=== PATIENT | male | born 1945 | race Caucasian/White ===

== ENCOUNTER 2017-10-22 09:30 | Emergency (ER) | payer BC, OTHER ==
[~2017-10-22] VITALS: Ht 170.2 cm; Wt 90.0 kg
[~2017-10-22 09:30] MED LIST: FRRS300 PO; HYDR1TAB2 PO; NITR1CAP16 PO; TAMS0.4C59 PO; TRAZ1TAB96 PO; WARF1TAB PO
[2017-10-22 09:32] VITALS: Ht 170.2 cm; Wt 90.0 kg
[2017-10-22] MEDS ORDERED: CEFAZOLIN SOD 1000MG/7.5 ML IV PUSH IV STA (10:02)
[2017-10-22] MEDS ORDERED: TAMS0.4C38 PO (10:22)
[2017-10-22] MEDS ORDERED: SERT25TA PO (10:26)
[2017-10-22] MEDS ORDERED: ATOR-24 PO (10:26)
[2017-10-22] MEDS ORDERED: ASPI81TA28 PO (10:26)
[2017-10-22] MEDS ORDERED: LOSA50TA6 PO (10:26)
[2017-10-22 10:40] LABS: BASO % 0.2 %; BASO ABS # 0.01 K/uL (0-0.2); EOS % 2.2 %; EOS ABS # 0.11 K/uL (0-0.5); HEMATOCRIT 45.1 % (42-52); HEMOGLOBIN 15.8 g/dL (14.0-18.0); IG# 0.01 K/uL (0.00-0.02); LYMPH ABS # 0.96 K/uL (1.2-3.4); MEAN CELL VOLUME 93.6 fL (80-100); MEAN CORPUSCULAR HEMOGLOBIN 32.8 pg (25-34); MEAN PLATELET VOLUME 9.2 fL (7.4-10.4); MONO % 11.3 %; MONO ABS # 0.57 K/uL (0.11-0.59); NEUT % 67.1 %; NEUT ABS # 3.38 K/uL (1.4-6.5); PLATELET COUNT 139 K/uL (130-400); RED CELL DISTRIBUTION WIDTH CV 12.7 % (11.5-14.5); RED CELL DISTRIBUTION WIDTH SD 43.2 fL (36.4-46.3); WHITE BLOOD COUNT 5.04 K/uL (4.8-10.8)
[2017-10-22 10:58] LABS: POTASSIUM 4.1 mmol/L (3.5-5.1)
--- NOTE | 2017-10-22 11:33 | DIAGNOSTIC IMAGING REPORT ---
L VENOUS DOPP LOWER EXT UNILAT CLINICAL HISTORY: cellulitis, r/o dvt pain. Edema. TECHNIQUE: Venous Doppler COMPARISON STUDY: None FINDINGS: Normal study IMPRESSION: Normal study The above report was generated using voice recognition software. It may contain grammatical, syntax or spelling errors. Electronically signed by: Gilbert Carmona M.D. 10/22/2017 11:31 AM Dictated Date/Time: 10/22/2017 11:31 AM
--- NOTE | 2017-10-22 11:45 | EMERGENCY ROOM VISIT NOTE ---
History Report prepared by Bo: Erin Luis Under the Supervision of: Dr. Kirk Zamudio D.O. 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 He notes left foot swelling. He reported to his PCP three days ago for similar symptoms and was administered a Rocephin shot and 500 mg Keflex four times a day. He notes the pain has worsened and his left foot has turned red. He currently rates his pain a 3/10 in severity. He notes fevers and chills. He denies any previous infections to his feet. He was seen today by Dr. Abreu at [facility] and was advised to come to the ED. Per , the patient had a fall in March 2017, reconstructive surgery on his right foot (2004), and triple bypass surgery (2011). The patient has a history of CAD, Parkinson's disease, and slight dementia. He denies any lung issues. He is not currently taking Coumadin. 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 Review of Systems See HPI for pertinent positives & negatives. A total of 10 systems reviewed and were otherwise negative. Past Medical & Surgical Medical Problems: (1) CAD (coronary artery disease) (2) History of ulceration (3) HTN (hypertension) (4) Parkinson disease (5) Reconstructive right foot surgery (2004) (6) Skin problem (7) Triple bypass surgery (2011) (8) Urinary problem Surgical Problems: (1) H/O eye surgery Family History Diabetes mellitus Heart disease Hypertension Social History Smoking Status: Never Smoker Smokeless Tobacco Use: No Alcohol Use: none Drug Use: none Marital Status: Housing Status: lives with significant other Occupation Status: unemployed Current/Historical Medications Scheduled Aspirin (Aspirin Ec), 81 MG PO DAILY Atorvastatin (Lipitor), 40 MG PO DAILY Losartan Potassium (Cozaar), 50 MG PO DAILY Sertraline (Zoloft), 25 MG PO HS Allergies Coded Allergies: No Known Allergies (Verified , 10/22/17) Physical Exam Vital Signs Date Time Temp Pulse Resp B/P (MAP) Pulse Ox O2 Delivery O2 Flow Rate FiO2 10/22/17 12:07 36.6 70 18 155/83 94 10/22/17 11:34 76 18 151/87 92 Room Air 10/22/17 09:32 36.6 89 20 147/82 90 Room Air Physical Exam CONSTITUTIONAL/VITAL SIGNS: Reviewed / noted above. GENERAL: Non-toxic in appearance. INTEGUMENTARY: Warm, dry, and [place]. HEAD: Normocephalic. EYES: without scleral icterus or trauma. ENT/OROPHARYNX: clear and moist. LYMPHADENOPATHY/NECK: Is supple without lymphadenopathy or meningismus. RESPIRATORY: Lungs clear and equal. CARDIOVASCULAR: Regular rate and rhythm. GI/ABDOMEN: Soft and nontender. No organomegaly or pulsatile mass. No rebound or guarding. Normal bowel sounds. EXTREMITIES: Erythema to dorsal aspect of left foot with mild tenderness. Mild erythema extending to the left anterior tibial region and to the left patella. Minimal increase of warmth to area over dorsal aspect of foot. No red streaking extending up the thigh. BACK: No CVA tenderness. NEUROLOGICAL: Intact without focal deficits. PSYCHIATRIC: normal affect. MUSCULOSKELETAL: Normally developed with good muscle tone. Medical Decision & Procedures ER Provider Diagnostic Interpretation: Radiology results as stated below per my review and radiologist interpretation: L VENOUS DOPP LOWER EXT UNILAT CLINICAL HISTORY: cellulitis, r/o dvt pain. Edema. TECHNIQUE: Venous Doppler COMPARISON STUDY: None FINDINGS: Normal study IMPRESSION: Normal study The above report was generated using voice recognition software. It may contain grammatical, syntax or spelling errors. Electronically signed by: Gilbert Carmona M.D. 10/22/2017 11:31 AM Dictated Date/Time: 10/22/2017 11:31 AM Laboratory Results 10/22/17 10:30 Red Blood Count 4.82, Mean Corpuscular Volume 93.6, Mean Corpuscular Hemoglobin 32.8, Mean Corpuscular Hemoglobin Concent 35.0, Mean Platelet Volume 9.2, Neutrophils (%) (Auto) 67.1, Lymphocytes (%) (Auto) 19.0, Monocytes (%) (Auto) 11.3, Eosinophils (%) (Auto) 2.2, Basophils (%) (Auto) 0.2, Neutrophils # (Auto ) 3.38, Lymphocytes # (Auto) 0.96, Monocytes # (Auto) 0.57, Eosinophils # (Auto ) 0.11, Basophils # (Auto) 0.01 10/22/17 10:30 Test 10/22/17 10:30 White Blood Count 5.04 K/uL (4.8-10.8) Red Blood Count 4.82 M/uL (4.7-6.1) Hemoglobin 15.8 g/dL (14.0-18.0) Hematocrit 45.1 % (42-52) Mean Corpuscular Volume 93.6 fL (80-100) Mean Corpuscular Hemoglobin 32.8 pg (25-34) Mean Corpuscular Hemoglobin Concent 35.0 g/dl (32-36) Platelet Count 139 K/uL (130-400) Mean Platelet Volume 9.2 fL (7.4-10.4) Neutrophils (%) (Auto) 67.1 % Lymphocytes (%) (Auto) 19.0 % Monocytes (%) (Auto) 11.3 % Eosinophils (%) (Auto) 2.2 % Basophils (%) (Auto) 0.2 % Neutrophils # (Auto) 3.38 K/uL (1.4-6.5) Lymphocytes # (Auto) 0.96 K/uL (1.2-3.4) Monocytes # (Auto) 0.57 K/uL (0.11-0.59) Eosinophils # (Auto) 0.11 K/uL (0-0.5) Basophils # (Auto) 0.01 K/uL (0-0.2) RDW Standard Deviation 43.2 fL (36.4-46.3) RDW Coefficient of Variation 12.7 % (11.5-14.5) Immature Granulocyte % (Auto) 0.2 % Immature Granulocyte # (Auto) 0.01 K/uL (0.00-0.02) Anion Gap 4.0 mmol/L (3-11) Est Creatinine Clear Calc Drug Dose 70.4 ml/min Estimated GFR () 86.2 Estimated GFR (Non- 74.3 BUN/Creatinine Ratio 17.6 (10-20) Calcium Level 9.0 mg/dl (8.5-10.1) Laboratory results as stated above per my review. Medications Administered Medications (Trade) Dose Ordered Sig/Stephanie Route Start Time Stop Time Status Last Admin Dose Admin Cefazolin Sodium (Cefazolin 1000mg Iv Push) 2,000 mg NOW STAT IV 10/22/17 10:02 10/22/17 10:05 DC 10/22/17 10:02 2,000 MG ED Course 0949: Previous medical records were reviewed. The patient was evaluated in room B9. A complete history and physical examination was performed. 1002: Ordered Cefazolin Sodium 2,000 mg IV 1159: I reassessed the patient at this time. He is feeling better and resting comfortably. I discussed the results and treatment plan with the patient. I answered all pertaining questions that he had. He expressed understanding and verbalized agreement. The patient will be discharged home. Medical Decision Differential diagnosis: Etiologies such as cellulitis, abscess, MRSA infection, DVT, necrotizing fasciitis, dermatitis, drug eruption, as well as others were entertained.. This is a 72-year-old male who presents to the ED with a chief complaint of redness to his left foot and anterior leg. The patient states that he saw his PCP on Monday and was given an IM injection of Rocephin and started on Keflex for the past 2 days. He states that his symptoms are not gone worse but they have not improved. He was seen by the PCP provider today and referred here for further evaluation. His vital signs are stable. He is afebrile. His exam is noted above. He has redness to the dorsal aspect of his left foot and ankle area. It is tender in a small area on the dorsal aspect. There is some redness along the anterior tibia to about the patellar area. There is no redness around the posterior aspect of the leg. The patient does not appear to be toxic or septic. There is minimal increased warmth over the dorsal aspect of the foot. There is no increased warmth along the anterior leg or knee. The patient does report a history of CAD and has had CABG in the past. Denies diabetes. Denies being told about peripheral last will disease in the past although this is likely. His CBC is normal, metabolic panel was unremarkable. Glucose was 125. Ultrasound did not show DVT. The patient was treated with IV Ancef. Based on my evaluation and the lack of worsening while on antibiotics, I feel the patient is stable for discharge and continued outpatient therapy at this time. He is to return for worsening. He was told to anticipate slow improvement over the next week. He is to follow-up with his PCP in 2-3 days for recheck. Medication Reconcilliation Current Medication List: was personally reviewed by me Blood Pressure Screening Patient's blood pressure: Elevated blood pressure Blood pressure disposition: Elevated BP felt to be situational Impression Primary Impression: Cellulitis Scribe Attestation The scribe's documentation has been prepared under my direction and personally reviewed by me in its entirety. I confirm that the note above accurately reflects all work, treatment, procedures, and medical decision making performed by me. Departure Information Dispostion Home / Self-Care Referrals No Doctor, Assigned (PCP) Forms HOME CARE DOCUMENTATION FORM, IMPORTANT VISIT INFORMATION Patient Instructions My [facility] Additional Instructions Continue Keflex. Return to the emergency department for reevaluation if the redness starts to go above the level of the knee, fevers, vomiting or the redness become circumferential around the lower extremity. See her doctor for recheck in 2 days.
[2017-10-22 12:07] VITALS: BP 155/83; PULSE 70; TEMP 36.6; O2SAT 94
[2017-10-22] MEDS ORDERED: LISI-725 PO (19:08)
[2017-10-22] MEDS ORDERED: SIMV20TA2 PO (19:08)
== END 2017-10-22 12:08 | disposition home or self-care (01) ==
LOC: C.EDB 09:32
DX: L03.116 Cellulitis of left lower limb (principal); R50.9 Fever, unspecified; Z98.890 Other specified postprocedural states; I10 Essential (primary) hypertension; I25.10 Atherosclerotic heart disease of native coronary artery without angina pectoris; G20 Parkinson's disease; Z95.1 Presence of aortocoronary bypass graft; Z79.82 Long term (current) use of aspirin; Z83.3 Family history of diabetes mellitus; Z82.49 Family history of ischemic heart disease and other diseases of the circulatory system

== ENCOUNTER 2019-12-09 15:54 | Observation (INO) ==
[2019-12-09] MEDS ORDERED: LACTATED RINGER'S 1,000 ML IV ONE ×2 (16:45→21:48)
--- NOTE | 2019-12-09 17:01 | XRay Report ---
XR chest 1V portable CLINICAL HISTORY: 74 years-old Male presenting with fall weakness. TECHNIQUE: Portable upright AP view of the chest was obtained. COMPARISON: 09/01/2019 and CTA chest from 09/02/2018. FINDINGS: Median sternotomy wires and mediastinal surgical clips. Atherosclerosis and tortuosity of the thoraci c aorta. Cardiac silhouette mildly enlarged. Mildly heterogeneous radiolucency of the lungs. No focal opacity. No large effusion or pneumothorax. Old left rib fractures noted. Osteopenia suggested. Dege nerative changes of the spine. Upper abdomen normal. IMPRESSION: 1. Cardiomegaly. No other convincing evidence of acute cardiopulmonary disease. ACT 112: Negative or not required by law. Electronically signed by: Faustino Manning M.D. 12/09/2019 5:00 PM
--- NOTE | 2019-12-09 17:04 | XRay Report ---
XR pelvis 1-2V routine CLINICAL HISTORY: 74 years-old Male presenting with fall. TECHNIQUE: Single frontal view of the pelvis was obtained. COMPARISON: Correlation made to CT of the abdomen and pelvis on 09/02/2018 and plain radiograph of th e pelvis from 06/01/2012. FINDINGS: Postsurgical changes of total right hip arthroplasty. Periprosthetic lucency noted along the inferior aspect of the acetabular component. No periprosthetic fracture. Remainder of the bony pelvis is layla sly intact. Sacral iliac joints and pubic symphysis intact. Left hip joint intact. Advanced degenerat juan changes of the lower lumbar spine. Limited evaluation of the sacrum. Left femoral neck grossly in tact. Atherosclerotic calcifications noted. IMPRESSION: 1. No acute osseous injury. 2. Total right hip arthroplasty. Greater lucency along the inferior aspect of the acetabular compone nt in comparison to prior. This may suggest underlying osteolysis/particle disease. No convincing dianne dence of a periprosthetic fracture. ACT 112: Negative or not required by law. Electronically signed by: Faustino Manning M.D. 12/09/2019 5:03 PM
--- NOTE | 2019-12-09 17:16 | CT Scan Report ---
CT SCAN OF THE BRAIN WITHOUT IV CONTRAST CLINICAL HISTORY: Fall. COMPARISON STUDY: No priors. TECHNIQUE: Unenhanced axial CT scan of the brain is performed from the vertex to the skull base. A do se lowering technique was utilized adhering to the principles of ALARA. FINDINGS: Brain parenchyma: There are age-related involutional changes noting mild subcortical and periventric ular microangiopathic change. There is no hemorrhage, mass effect, or evidence of acute territorial i schemia by CT criteria. Jain-white matter differentiation is preserved. No extra-axial fluid collecti on is seen. Ventricles, sulci, cisterns: Prominent secondary to involutional change. Intracranial vasculature: There is atherosclerotic calcification of the cavernous carotid and vertebr al arteries. Calvarium: Skeletal structures are osteopenic. No depressed calvarial fracture is identified. Sinuses and mastoids: There is moderate mucosal thickening seen in the left maxillary antrum. Mild se cretions are noted in the left sphenoid sinus. There is trace mucosal thickening within the left fron alyx and ethmoid sinuses. Large mastoid effusions are identified. Orbits: The bony orbits are grossly intact. There are bilateral ocular lens implants. IMPRESSION: There is no hemorrhage, mass effect, or evidence of acute territorial ischemia by CT crit robi. ACT 112: Negative or not required by law. Electronically signed by: Gonzales Alvarado M.D. 12/09/2019 5:15 PM
--- NOTE | 2019-12-09 17:22 | CT Scan Report ---
CT abd pelvis wo con CLINICAL HISTORY: 74 years-old Male presenting with fall, trauma. TECHNIQUE: Multidetector CT of the abdomen and pelvis was performed without the use of intravenous co ntrast. IV contrast: None. One or more dose lowering techniques were used consistent with the princip les of ALARA (as low as reasonably achievable), including automatic exposure control, mA or kV adjust ment to individual patient size, and/or use of iterative reconstruction. COMPARISON: 09/02/2018. CT DOSE (mGy.cm): The estimated cumulative dose is 545.73 mGy.cm. 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 Lung bases: Calcified foci within the pericardial fat, possibly old fat necrosis or calcified lymph n ode. Coronary artery and aortic valve calcification. Top normal heart size. No pericardial or pleural effusion. No focal infiltrate or nodule at the lung bases. Liver: Congenital hypoplasia of the medial segments of the left hepatic lobe. Normal liver density. Biliary: No gross biliary ductal dilatation allowing for noncontrast technique. Normal gallbladder. Pancreas: Normal noncontrast appearance. Spleen: Normal noncontrast appearance. Splenule noted. Adrenal glands: Normal noncontrast appearance. Kidneys and ureters: Normal noncontrast appearance. No nephrolithiasis. No hydronephrosis. Normal ure ters. Bladder: Significant circumferential bladder wall thickening. Pelvic organs: Marked prostatic enlargement likely secondary to benign prostatic hyperplasia. Bowel: Mild diverticulosis of the mid sigmoid colon without wall thickening or pericolonic inflammato ry change. The appendix is normal. No bowel obstruction. Duodenal diverticulum noted at the level of the pancreatic head. Peritoneal cavity: No free fluid or intraperitoneal gas. Lymph nodes: No gross lymphadenopathy allowing for noncontrast technique. Vasculature: Atherosclerosis of the normal caliber abdominal aorta. Abdominal wall: Small fat-containing inguinal hernias. Musculoskeletal: Total right hip arthroplasty. Degenerative changes of the spine. Partially visualize d median sternotomy. No acute osseous injury. Several old rib fractures noted. Multiple lucent lesion s are suspected including in the lumbar spine and left superior acetabulum. These have not significan tly changed since prior CT. Degenerative changes of the sacroiliac joints. Sacrum grossly intact. Deg enerative changes of the left hip and pubic symphysis. Bilateral pars defects of L5. IMPRESSION: 1. Allowing for noncontrast technique, no convincing evidence of acute intra-abdominal pathology. No acute osseous injury. 2. Significant chronic bladder outlet obstruction secondary to marked prostatomegaly. 3. Additional chronic findings as above. ACT 112: Negative or not required by law. Electronically signed by: Faustino Manning M.D. 12/09/2019 5:21 PM
--- NOTE | 2019-12-09 17:23 | CT Scan Report ---
CT SCAN OF THE CERVICAL SPINE CLINICAL HISTORY: Trauma. Fall. COMPARISON STUDY: CT angiogram of the neck dated 08/31/2012. TECHNIQUE: CT scan of the cervical spine is performed from the skull base to the upper thoracic spine . Images are reviewed in the axial, sagittal, and coronal planes. IV contrast was not administered fo r this examination. A dose lowering technique was utilized adhering to the principles of ALARA. CT DOSE: 1024.07 mGy.cm FINDINGS: Skeletal structures: The skeletal structures are osteopenic. There is no evidence of acute fracture o r subluxation involving the cervical spine. There is incomplete bony fusion of the anterior C1. This is new from 2011 and likely represents remote fracture. This is well corticated with no evidence of a cutely. Vertebral body is maintained. There is 4 mm of anterolisthesis at C4-C5. This has minimally i ncreased dated back to 2011. Minimal anterolisthesis is noted at C5-C6. Alignment is otherwise preser melvin. There is straightening of cervical lordosis with reversal centered at C5. Anterior osteophytes a re seen throughout. The odontoid process and lateral masses are intact. The atlantoaxial articulation is preserved noting advanced productive degenerative change. The spinous processes appear intact. Th ere is moderate to advanced multilevel cervical spondylosis. Uncovertebral and facet arthropathy cont ribute to neural foraminal stenosis at most levels. Intervertebral discs: There is advanced disc space narrowing seen at C5-C6 and C7-T1. Moderate disc s pace narrowing seen at C3-C4, C4-C5, and C6-C7. Central canal: Posterior disc osteophyte complexes are seen at all levels between C3-C4 and C7-T1. Th is likely contributes to multilevel acquired compromise of the central canal. Soft tissues: The prevertebral and paraspinous soft tissues are within normal limits. Atherosclerotic calcification is noted in the carotid bulbs. Calvarium: The visualized calvarium at the skull base appears intact. Brain parenchyma: Partially visualized brain parenchyma the skull base is within normal limits. Sinuses and mastoids: Mucosal thickening is noted in the left sphenoid sinus. There are large bilater al mastoid effusions. Lung apices: Clear as visualized. IMPRESSION: 1. There is no evidence of fracture or subluxation involving the cervical spine. 2. Osteopenia and spondylotic change as above. 3. Large mastoid effusions. ACT 112: Negative or not required by law. Electronically signed by: Gonzales Alvarado M.D. 12/09/2019 5:22 PM
[2019-12-09 17:54] LABS: Basophils # (auto) 0.02 K/uL (0-0.2); Basophils % (auto) 0.3 %; Eosinophils # (auto) 0.12 K/uL (0-0.5); Hemoglobin 14.2 g/dL (14.0-18.0); Immature Granulocytes # (auto) 0.02 K/uL (0.00-0.02); Immature Granulocytes % (auto) 0.3 %; Lymphocytes # (auto) 1.15 K/uL (1.2-3.4); Lymphocytes % (auto) 19.6 %; Mean Corpuscular Hemoglobin 28.7 pg (25-34); Mean Corpuscular Hgb Conc 33.8 g/dL (32-36); Mean Corpuscular Volume 84.8 fL (80-100); Mean Platelet Volume 9.6 fL (7.4-10.4); Monocytes # (auto) 0.47 K/uL (0.11-0.59); Neutrophils # (auto) 4.09 K/uL (1.4-6.5); Neutrophils % (auto) 69.8 %; Platelet Count 125 K/uL (130-400); RDW Coefficient of Variation 14.5 % (11.5-14.5); RDW Standard Deviation 44.8 fL (36.4-46.3); Red Blood Count 4.95 M/uL (4.7-6.1); White Blood Count 5.87 K/uL (4.8-10.8)
[2019-12-09 18:05] LABS: Partial Thromboplastin Ratio 0.8; Prothrombin Time 10.3 Seconds (9.0-12.0)
[2019-12-09 18:16] LABS: Alanine Aminotransferase 21 U/L (12-78); Albumin Level 3.4 gm/dl (3.4-5.0); Aspartate Aminotransferase 16 U/L (15-37); BUN Creatinine Ratio 15.9 (10-20); Blood Urea Nitrogen 27 mg/dl (7-18); Calcium 8.6 mg/dl (8.5-10.1); Carbon Dioxide 29 mmol/L (21-32); Chloride 107 mmol/L (98-107); Creatinine Clr Calc Pharmacy 37.7 ml/min; Est GFR (African American) 44.4; Est GFR (Non-African American) 38.3; Glucose 132 mg/dl (70-99); Magnesium 2.1 mg/dl (1.8-2.4); Potassium 3.7 mmol/L (3.5-5.1); Sodium 140 mmol/L (136-145)
[2019-12-09 18:21] LABS: Albumin Globulin Ratio 1.1 (0.9-2); Alkaline Phosphatase 123 U/L (45-117); Bilirubin,Total 0.4 mg/dl (0.2-1); Total Protein 6.4 gm/dl (6.4-8.2); Troponin I < 0.015 ng/ml (0-0.045)
[2019-12-09 18:36] LABS: Influenza A virus by PCR Neg for Influ A (Neg); Influenza B virus by PCR Neg for Influ B (Neg)
[2019-12-09 19:11] LABS: Appearance Urine Clear (Clear); Bacteria Urine Automated Negative (Negative); Bilirubin Urine Negative (Negative); Blood Urine Negative (Negative); Color Urine Yellow; Epithelial Cell Urine Auto 20-30 /lpf (0-5); Glucose Urine UA Negative (Negative); Ketones Urine Negative (Negative); Leukocyte Esterase Urine Negative (Negative); Nitrite Urine Negative (Negative); Protein Urine 2+ (Negative); RBC Urine Automated 0-4 /hpf (0-4); Specific Gravity Urine 1.016 (1.000-1.030); Urobilinogen Urine Negative (Negative)
--- NOTE | 2019-12-09 20:46 | History & Physical Report ---
Date of Service December 09, 2019 Assessment & Plan (1) ARF (acute renal failure): Mild clinical dehydration ? Generalized weakness from incipient viral illness Patient not septic CAD status post CABG Hypertension, stable Parkinson's dementia as per records, at baseline Patient following with a specialist from [facility]. Recurrent LE cellulitis/history strep bacteremia on chronic Keflex suppression Rx DM 2, on oral meds Well-controlled as of recent hemoglobin A1c of 6.4, August 2019 BPH stable OBS GMF Monitor creatinine response to IVF Hold home diuretic and losartan for now until creatinine at baseline. ISS BG goal [id number], update hemoglobin A1c PT OT eval DVT prophylaxis. Heparin subcu Full code Patient's requesting for updates from providers. Mrs. Ashley Jose thru contact #[phone]. Text document was generated using [employer] voice recognition software. It may contain grammatical or spelling errors. Kindly contact undersigned for clarification of any documentation item in question. History of Present Illness Chief Complaint: Generalized weakness Primary Care Provider: Michael Hinton MD History obtained from patient, family, and records. Medical history significant for hypertension, hyperlipidemia, Parkinson's, dementia, CAD sp CABG, medullary sponge kidney as per records, BPH, history recurrent cellulitis on chronic Keflex Rx.. Recent confinement August 2018 for sepsis secondary to bilateral lower extremity cellulitis/group B strep bacteremia. Patient discharged on suppressive Keflex Rx due to recurrent disease. This morning patient noted increasing generalized weakness without flulike symptoms, fever, chills, chest pain, S OB, abdominal pain, diarrhea, dysuria. Dry cough symptoms. Appetite good as per patient. Patient recovered from complicated bronchitis episode along with about 3 weeks ago status post Z- Frank Rx from PCP. Patient brought to the ER for evaluation. 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 Allergies Allergy/AdvReac Type Severity Reaction Status Date / Time YONATAN Inhibitors AdvReac Unknown Cough Verified 12/09/19 16:46 Home Medications Home Medications Medication Instructions Recorded Confirmed Type aspirin [Aspir-81] 81 mg PO QAM 09/02/18 12/09/19 History atorvastatin 40 mg PO QAM 09/02/18 12/09/19 History donepezil 5 mg tablet 5 mg PO QAM tab 07/11/19 12/09/19 History tamsulosin 0.4 mg capsule 0.4 mg PO QAM #90 cap 07/11/19 12/09/19 History amantadine HCl 100 mg tablet 100 mg PO BID tab 08/20/19 12/09/19 History triamterene 37.5 1 tab PO WK #15 tab 08/21/19 12/09/19 Rx mg-hydrochlorothiazide 25 mg tablet cephalexin 500 mg capsule 500 mg PO BID #180 cap 11/06/19 12/09/19 Rx escitalopram oxalate 20 mg PO QAM 12/09/19 12/09/19 History metformin 1,000 mg PO QAM 12/09/19 12/09/19 History Past Med/Surg History Social History Preferred Language: Swedish Communication Ability: Effective Sld Inclusion Teacher Required: No Beliefs That Will Affect Care: None Current Living Situation: Spouse Other Information That Helps Us Care for You: No Feels Safe at Home: Yes Safety Concerns: Feels Safe At This Time Smoking Status: Never smoker Hx Alcohol Use: No Hx Substance Use: Yes substance use type: marijuana Substance Use Type Other:: had medical marijuana card Last Used Substance Other:: did not ask when last used Review of Systems Review of Systems: As per HPI, all 10 systems reviewed, all other ROS negative Physical Exam Physical Exam: GENERAL: Comfortable, no respiratory distress SKIN: Pallor , warm HEENT: Pale palpebral conjunctivae, no ptosis, dry buccal mucosa NECK : Supple, short neck, no tenderness CHEST : CTA, no tenderness HEART : RRR, no obvious murmurs ABDOMEN: Some distention, nontender EXTREMITIES : Minimal LE swelling, no LE tenderness, no other conspicuous deformities noted NEUROLOGIC : Coherent, mild hearing impairment, no facial asymmetry, gait and stance not assessed Results & Data Vital Signs (Past 12 Hours) Vital Signs Temp Pulse Pulse Resp BP BP Pulse Ox 12/09/19 19:22 71 16 131/80 99 12/09/19 18:31 71 25 H 12/09/19 18:30 68 23 142/83 H 12/09/19 18:01 72 25 H 141/80 H 12/09/19 18:00 73 20 12/09/19 17:38 66 28 H 101/67 12/09/19 17:37 69 21 12/09/19 16:43 74 21 94 12/09/19 16:30 73 29 H 134/64 95 12/09/19 16:06 37 C 95 H 20 105/55 L 100 Laboratory Results Laboratory Results WBC 5.87 K/uL (4.8-10.8) 12/09/19 17:35 RBC 4.95 M/uL (4.7-6.1) 12/09/19 17:35 Hgb 14.2 g/dL (14.0-18.0) 12/09/19 17:35 Hct 42.0 % (42-52) 12/09/19 17:35 MCV 84.8 fL (80-100) 12/09/19 17:35 MCH 28.7 pg (25-34) 12/09/19 17:35 MCHC 33.8 g/dL (32-36) 12/09/19 17:35 RDW Std Deviation 44.8 fL (36.4-46.3) 12/09/19 17:35 RDW Coeff of Anny 14.5 % (11.5-14.5) 12/09/19 17:35 Plt Count 125 K/uL (130-400) L 12/09/19 17:35 MPV 9.6 fL (7.4-10.4) 12/09/19 17:35 Immature Gran % (Auto) 0.3 % 12/09/19 17:35 Neut % (Auto) 69.8 % 12/09/19 17:35 Lymph % (Auto) 19.6 % 12/09/19 17:35 [place] % (Auto) 8.0 % 12/09/19 17:35 Eos % (Auto) 2.0 % 12/09/19 17:35 Baso % (Auto) 0.3 % 12/09/19 17:35 Immature Gran # (Auto) 0.02 K/uL (0.00-0.02) 12/09/19 17:35 Neut # (Auto) 4.09 K/uL (1.4-6.5) 12/09/19 17:35 Lymph # (Auto) 1.15 K/uL (1.2-3.4) L 12/09/19 17:35 [place] # (Auto) 0.47 K/uL (0.11-0.59) 12/09/19 17:35 Eos # (Auto) 0.12 K/uL (0-0.5) 12/09/19 17:35 Baso # (Auto) 0.02 K/uL (0-0.2) 12/09/19 17:35 PT 10.3 Seconds (9.0-12.0) 12/09/19 17:35 INR 1.0 (0.9-1.1) 12/09/19 17:35 APTT 23.0 Seconds (21.0-31.0) 12/09/19 17:35 PTT Ratio 0.8 12/09/19 17:35 Sodium 140 mmol/L (136-145) 12/09/19 17:35 Potassium 3.7 mmol/L (3.5-5.1) 12/09/19 17:35 Chloride 107 mmol/L (98-107) 12/09/19 17:35 Carbon Dioxide 29 mmol/L (21-32) 12/09/19 17:35 Anion Gap 4.0 (3-11) 12/09/19 17:35 BUN 27 mg/dl (7-18) H 12/09/19 17:35 Creatinine 1.71 mg/dl (0.6-1.4) H 12/09/19 17:35 Est Cr Clr Drug Dosing 37.7 ml/min 12/09/19 17:35 Est GFR ( Amer) 44.4 12/09/19 17:35 Est GFR (Non-Af Amer) 38.3 12/09/19 17:35 BUN/Creatinine Ratio 15.9 (10-20) 12/09/19 17:35 Glucose 132 mg/dl (70-99) H 12/09/19 17:35 Lactate 1.8 mmol/L (0.4-2.0) 12/09/19 17:52 Calcium 8.6 mg/dl (8.5-10.1) 12/09/19 17:35 Magnesium 2.1 mg/dl (1.8-2.4) 12/09/19 17:35 Total Bilirubin 0.4 mg/dl (0.2-1) 12/09/19 17:35 AST 16 U/L (15-37) 12/09/19 17:35 ALT 21 U/L (12-78) 12/09/19 17:35 Alkaline Phosphatase 123 U/L (45-117) H 12/09/19 17:35 Troponin I < 0.015 ng/ml (0-0.045) 12/09/19 17:35 Total Protein 6.4 gm/dl (6.4-8.2) 12/09/19 17:35 Albumin 3.4 gm/dl (3.4-5.0) 12/09/19 17:35 Globulin 3.0 gm/dl (2.5-4.0) 12/09/19 17:35 Albumin/Globulin Ratio 1.1 (0.9-2) 12/09/19 17:35 Procalcitonin 0.06 ng/ml (0-0.5) 12/09/19 17:35 TSH 3.290 uIu/ml (0.300-4.500) 12/09/19 17:35 Urine Color Yellow 12/09/19 19:00 Urine Appearance Clear (Clear) 12/09/19 19:00 Urine pH 5.0 (4.5-7.5) 12/09/19 19:00 Ur Specific Laura 1.016 (1.000-1.030) 12/09/19 19:00 Urine Protein 2+ (Negative) H 12/09/19 19:00 Urine Glucose (UA) Negative (Negative) 12/09/19 19:00 Urine Ketones Negative (Negative) 12/09/19 19:00 Urine Blood Negative (Negative) 12/09/19 19:00 Urine Nitrite Negative (Negative) 12/09/19 19:00 Urine Bilirubin Negative (Negative) 12/09/19 19:00 Urine Urobilinogen Negative (Negative) 12/09/19 19:00 Ur Leukocyte Esterase Negative (Negative) 12/09/19 19:00 Urine WBC (Auto) 1-5 /hpf (0-5) 12/09/19 19:00 Urine RBC (Auto) 0-4 /hpf (0-4) 12/09/19 19:00 U Hyaline Cast (Auto) 10-30 /lpf (0-5) H 12/09/19 19:00 U Epithel Cells (Auto) 20-30 /lpf (0-5) H 12/09/19 19:00 Urine Bacteria (Auto) Negative (Negative) 12/09/19 19:00 Influenza Type A (PCR) Neg for Influ A (Neg) 12/09/19 17:35 Influenza Type B (PCR) Neg for Influ B (Neg) 12/09/19 17:[address] head: There is no hemorrhage, mass effect, or evidence of acute territorial ischemia by CT criteria. CT cervical spine: 1. There is no evidence of fracture or subluxation involving the cervical spine. 2. Osteopenia and spondylotic change as above. 3. Large mastoid effusions. CT abdomen pelvis: 1. Allowing for noncontrast technique, no convincing evidence of acute intra- abdominal pathology. No acute osseous injury. 2. Significant chronic bladder outlet obstruction secondary to marked prostatomegaly. 3. Additional chronic findings as above. Chest x-ray : Cardiomegaly EKG as per my interpretation : Rate 60, NSR, LAD, LAFB, incomplete RBBB, diffuse T wave flattening
[2019-12-09] MEDS ORDERED: GLUCOSE 10 TABS/TUBE PO PRN (21:48)
[2019-12-09] MEDS ORDERED: DEXTROSE 50% 50 ML SYRINGE IV PRN (21:48)
[2019-12-09] MEDS ORDERED: ACETAMINOPHEN 325 MG TAB PO PRN (21:48)
[2019-12-09] MEDS ORDERED: GLUCOSE 40% GEL 15 GM TUBE PO PRN (21:48)
[2019-12-09] MEDS ORDERED: GLUCAGON FOR INJ 1 MG VIAL SQ PRN (21:48)
[2019-12-09] MEDS ORDERED: TRAMADOL HCL 50 MG TABLET PO PRN (21:48)
[2019-12-09] MEDS ORDERED: CARBOHYDRATES FOR HYPOGLYCEMIA PO PRN (21:48)
[2019-12-09] MEDS ORDERED: KEFLEX~PHARMACY CONSULT IN PROGRESS PRN (22:25)
--- NOTE | 2019-12-09 22:25 | Emergency Department Note ---
Entered by Magdaleno Salcedo acting as a scribe for Joe Hernandes History of Present Illness General Chief complaint: Weakness Stated complaint: LEG WEAKNESS, UNSTEADY GAIT Time Seen by Provider: 12/09/19 16:11 Source: patient and family () Limitations: other (dementia) History of Present Illness Onset (ago): hour(s) (1030 this morning) Severity: similar to prior episodes Pain Consistency: + constant Quality: + other (weakness) Associated symptoms: + other (Positive for neck pain, dizziness, a headache, right lower abdominal pain, chills, an increased frequency of urination, and back pain. Negative for hip pain, cough, and fever.) The patient is a 74 year old male who presents to the emergency department with complaints of constant weakness beginning at 1030 this morning. The patient states that he developed generalized weakness beginning at 1030 this morning. Per , the patient is too weak to make it to the bathroom. She notes that the patient fell this morning as he was getting up from his recliner. She reports that the patient hit his head at that time. The patient complains of neck pain, dizziness, a headache, right lower abdominal pain, chills, an increased frequency of urination, and back pain. The patient states that he has been dizzy and had a dull headache at the back of his head for two weeks. He denies any hip pain, cough, and fever. Per , the patient has a history of Parkinsons, dementia, diabetes, and previous UTIs. She notes that the patients current symptoms are similar to when he had a UTI. She reports that the patient is not on any blood thinners, and she states that the patient uses medical marijuana. HPI limited secondary to dementia. Home Medications Home Medications Medication Instructions Recorded Confirmed Type aspirin [Aspir-81] 81 mg PO QAM 09/02/18 12/09/19 History atorvastatin 40 mg PO QAM 09/02/18 12/09/19 History donepezil 5 mg tablet 5 mg PO QAM tab 07/11/19 12/09/19 History tamsulosin 0.4 mg capsule 0.4 mg PO QAM #90 cap 07/11/19 12/09/19 History amantadine HCl 100 mg tablet 100 mg PO BID tab 08/20/19 12/09/19 History triamterene 37.5 1 tab PO WK #15 tab 08/21/19 12/09/19 Rx mg-hydrochlorothiazide 25 mg tablet cephalexin 500 mg capsule 500 mg PO BID #180 cap 11/06/19 12/09/19 Rx escitalopram oxalate 20 mg PO QAM 12/09/19 12/09/19 History metformin 1,000 mg PO QAM 12/09/19 12/09/19 History Allergies Allergy/AdvReac Type Severity Reaction Status Date / Time YONATAN Inhibitors AdvReac Unknown Cough Verified 12/09/19 16:46 Past Med/Surg History Social History Preferred Language: Azeri Communication Ability: Effective Highway Maintenance Supervisor Required: No Beliefs That Will Affect Care: Gnosticist Gnosticist Beliefs: SPIRITISM-REQUEST TO SPEAK WITH CLERGY Current Living Situation: Spouse Feels Safe at Home: Yes Smoking Status: Never smoker Hx Alcohol Use: No Hx Substance Use: No Review of Systems ROS limited secondary to dementia. Physical Exam Vital Signs Vital Signs - 24 hr 12/09/19 16:06 12/09/19 16:30 12/09/19 16:43 Temperature 37 C Temperature Source Oral Pulse Rate 95 H 73 74 Pulse Rate [Right] Pulse Rate from SpO2 Sensor 73 73 Pulse Rhythm Regular Pulse Strength Normal Pulse Strength [Right] Respiratory Rate 20 29 H 21 Respiratory Effort / Characteristics Non-Labored Spontaneous Respiratory Depth Normal Respiratory Pattern Regular Blood Pressure 105/55 L 134/64 Blood Pressure [Right Arm] Blood Pressure Mean 71 85 Blood Pressure Mean [Right Arm] Blood Pressure Position Sitting Blood Pressure Position [Right Arm] Pulse Oximetry 100 95 94 Oxygen Delivery Method Room Air Sepsis Recent Fever Within 48 Hours No Sepsis Action Taken by Nursing No Action Required 12/09/19 17:37 12/09/19 17:38 12/09/19 17:55 Temperature Temperature Source Pulse Rate 69 66 Pulse Rate [Right] Pulse Rate from SpO2 Sensor Pulse Rhythm Pulse Strength Pulse Strength [Right] Respiratory Rate 21 28 H Respiratory Effort / Characteristics Respiratory Depth Respiratory Pattern Blood Pressure 101/67 Blood Pressure [Right Arm] Blood Pressure Mean 81 Blood Pressure Mean [Right Arm] Blood Pressure Position Blood Pressure Position [Right Arm] Pulse Oximetry Oxygen Delivery Method Room Air Sepsis Recent Fever Within 48 Hours Sepsis Action Taken by Nursing 12/09/19 18:00 12/09/19 18:12/09/19 18:30 Temperature Temperature Source Pulse Rate 73 72 68 Pulse Rate [Right] Pulse Rate from SpO2 Sensor Pulse Rhythm Pulse Strength Pulse Strength [Right] Respiratory Rate 20 25 H 23 Respiratory Effort / Characteristics Respiratory Depth Respiratory Pattern Blood Pressure 141/80 H 142/83 H Blood Pressure [Right Arm] Blood Pressure Mean 84 105 Blood Pressure Mean [Right Arm] Blood Pressure Position Blood Pressure Position [Right Arm] Pulse Oximetry Oxygen Delivery Method Sepsis Recent Fever Within 48 Hours Sepsis Action Taken by Nursing 12/09/19 18:31 12/09/19 19:22 Temperature Temperature Source Pulse Rate 71 Pulse Rate [Right] 71 Pulse Rate from SpO2 Sensor Pulse Rhythm Pulse Strength Pulse Strength [Right] Normal Respiratory Rate 25 H 16 Respiratory Effort / Characteristics Non-Labored Spontaneous Respiratory Depth Normal Respiratory Pattern Blood Pressure Blood Pressure [Right Arm] 131/80 Blood Pressure Mean Blood Pressure Mean [Right Arm] 97 Blood Pressure Position Blood Pressure Position [Right Arm] Lying Pulse Oximetry 99 Oxygen Delivery Method Room Air Sepsis Recent Fever Within 48 Hours Sepsis Action Taken by Nursing HENT: Exam performed. - Head: Normocephalic and atraumatic. - Right Ear: External ear normal. No mastoid tenderness. - Left Ear: External ear normal. No mastoid tenderness. - Mouth/Throat: The oropharynx is clear and moist. No trismus in the jaw. No dental abscesses or uvula swelling. No oropharyngeal exudate or tonsillar abscesses. EYES: Conjunctivae and EOM are normal. Pupils are equal, round, and reactive to light. Right eye exhibits no discharge. Left eye exhibits no discharge. No scleral icterus. NECK: Normal range of motion. Neck supple. No JVD present. No carotid bruit present. No rigidity. No tracheal deviation and normal range of motion present. No Brudzinski's sign and no Kernig's sign noted. Pain to palpation of C spine. CV: Normal rate, regular rhythm, normal heart sounds and intact distal pulses. There is no peripheral edema. Palpable radial pulses bue. PULM/CHEST: Effort normal and breath sounds normal. No respiratory distress. No stridor. He has no wheezes. He has no rales. - Chest Wall: He exhibits no tenderness. ABD: The abdomen is soft. Bowel sounds are normal. He has no distension. No mass is present. There is no tenderness. There is no rebound, no guarding, no Ac's sign and no tenderness at McBurney's point. Rovsig negative. MUSC/SKEL: Normal range of motion. There is no peripheral edema, tenderness or deformity. NEURO: Grossly intact, mild tremor noted, motor and sensation intact grossly. SKIN: Skin is warm and dry. He is not diaphoretic. Course Course 1620: The patient was evaluated in room B4. A complete history and physical exam was performed. 1935: Vital signs stable. Labs within normal limits with exception of an elevated creatinine. Patient's imaging shows no acute traumatic injury. Family at bedside states that the patient has been progressively getting weaker and having increasing falls. They state they concerned that the patient is becoming difficult to care for at home due to his weakness and recurrent falls. I did discuss with them if they would like the patient seen for placement at a [facility]. They stated that they have not discussed this with the family and needs more time to discuss. Patient will be admitted for acute kidney injury, IV fluids continued. Upon reevaluation, the patient is stable. I discussed the findings and the treatment plan with the patient. He expresses agreement and understanding. Ej Flores. The patient will be evaluated for further management. Consultations Consultation #1: Ej Flores. The patient will evaluate the patient for further management. Time: 19:35 Administered Medications Discontinued Medications Lactated Ringer's (Lr) 1,000 mls @ 999 mls/hr IV .Q1H1M ONE Stop: 12/09/19 17:45 Last Infusion: 12/09/19 19:04 Dose: 0 mls/hr Documented by: [id number] Admin: 12/09/19 17:56 Dose: 999 mls/hr Documented by: [id number] Medical Decision Making Medical Records Attestation: I reviewed the patient's medical records. Home Medications Current Medication List: was personally reviewed by me Laboratory Data Attestation: I reviewed the patient's lab results. Result diagrams: 12/09/19 17:35 12/09/19 17:35 Lab Results 12/09/19 12/09/19 12/09/19 Range/Units 17:35 17:35 17:35 WBC 5.87 (4.8-10.8) K/uL RBC 4.95 (4.7-6.1) M/uL Hgb 14.2 (14.0-18.0) g/dL Hct 42.0 (42-52) % MCV 84.8 (80-100) fL MCH 28.7 (25-34) pg MCHC 33.8 (32-36) g/dL RDW Std Deviation 44.8 (36.4-46.3) fL RDW Coeff of Anny 14.5 (11.5-14.5) % Plt Count 125 L (130-400) K/uL MPV 9.6 (7.4-10.4) fL Immature Gran % (Auto) 0.3 % Neut % (Auto) 69.8 % Lymph % (Auto) 19.6 % Ashe % (Auto) 8.0 % Eos % (Auto) 2.0 % Baso % (Auto) 0.3 % Immature Gran # (Auto) 0.02 (0.00-0.02) K/uL Neut # (Auto) 4.09 (1.4-6.5) K/uL Lymph # (Auto) 1.15 L (1.2-3.4) K/uL Ashe # (Auto) 0.47 (0.11-0.59) K/uL Eos # (Auto) 0.12 (0-0.5) K/uL Baso # (Auto) 0.02 (0-0.2) K/uL PT 10.3 (9.0-12.0) Seconds INR 1.0 (0.9-1.1) APTT 23.0 (21.0-31.0) Seconds PTT Ratio 0.8 Sodium 140 (136-145) mmol/L Potassium 3.7 (3.5-5.1) mmol/L Chloride 107 (98-107) mmol/L Carbon Dioxide 29 (21-32) mmol/L Anion Gap 4.0 (3-11) BUN 27 H (7-18) mg/dl Creatinine 1.71 H (0.6-1.4) mg/dl Est Cr Clr Drug Dosing 37.7 ml/min Est GFR ( Amer) 44.4 Est GFR (Non-Af Amer) 38.3 BUN/Creatinine Ratio 15.9 (10-20) Glucose 132 H (70-99) mg/dl Lactate (0.4-2.0) mmol/L Calcium 8.6 (8.5-10.1) mg/dl Magnesium 2.1 (1.8-2.4) mg/dl Total Bilirubin 0.4 (0.2-1) mg/dl AST 16 (15-37) U/L ALT 21 (12-78) U/L Alkaline Phosphatase 123 H (45-117) U/L Total Creatine Kinase (39-308) U/L Troponin I < 0.015 (0-0.045) ng/ml Total Protein 6.4 (6.4-8.2) gm/dl Albumin 3.4 (3.4-5.0) gm/dl Globulin 3.0 (2.5-4.0) gm/dl Albumin/Globulin Ratio 1.1 (0.9-2) Procalcitonin (0-0.5) ng/ml TSH (0.300-4.500) uIu/ml Urine Color Urine Appearance (Clear) Urine pH (4.5-7.5) Ur Specific [place] (1.000-1.030) Urine Protein (Negative) Urine Glucose (UA) (Negative) Urine Ketones (Negative) Urine Blood (Negative) Urine Nitrite (Negative) Urine Bilirubin (Negative) Urine Urobilinogen (Negative) Ur Leukocyte Esterase (Negative) Urine WBC (Auto) (0-5) /hpf Urine RBC (Auto) (0-4) /hpf U Hyaline Cast (Auto) (0-5) /lpf U Epithel Cells (Auto) (0-5) /lpf Urine Bacteria (Auto) (Negative) Influenza Type A (PCR) (Neg) Influenza Type B (PCR) (Neg) 12/09/19 12/09/19 12/09/19 Range/Units 17:35 17:35 17:35 WBC (4.8-10.8) K/uL RBC (4.7-6.1) M/uL Hgb (14.0-18.0) g/dL Hct (42-52) % MCV (80-100) fL MCH (25-34) pg MCHC (32-36) g/dL RDW Std Deviation (36.4-46.3) fL RDW Coeff of Anny (11.5-14.5) % Plt Count (130-400) K/uL MPV (7.4-10.4) fL Immature Gran % (Auto) % Neut % (Auto) % Lymph % (Auto) % Ashe % (Auto) % Eos % (Auto) % Baso % (Auto) % Immature Gran # (Auto) (0.00-0.02) K/uL Neut # (Auto) (1.4-6.5) K/uL Lymph # (Auto) (1.2-3.4) K/uL Ashe # (Auto) (0.11-0.59) K/uL Eos # (Auto) (0-0.5) K/uL Baso # (Auto) (0-0.2) K/uL PT (9.0-12.0) Seconds INR (0.9-1.1) APTT (21.0-31.0) Seconds PTT Ratio Sodium (136-145) mmol/L Potassium (3.5-5.1) mmol/L Chloride (98-107) mmol/L Carbon Dioxide (21-32) mmol/L Anion Gap (3-11) BUN (7-18) mg/dl Creatinine (0.6-1.4) mg/dl Est Cr Clr Drug Dosing ml/min Est GFR ( Amer) Est GFR (Non-Af Amer) BUN/Creatinine Ratio (10-20) Glucose (70-99) mg/dl Lactate (0.4-2.0) mmol/L Calcium (8.5-10.1) mg/dl Magnesium (1.8-2.4) mg/dl Total Bilirubin (0.2-1) mg/dl AST (15-37) U/L ALT (12-78) U/L Alkaline Phosphatase (45-117) U/L Total Creatine Kinase (39-308) U/L Troponin I (0-0.045) ng/ml Total Protein (6.4-8.2) gm/dl Albumin (3.4-5.0) gm/dl Globulin (2.5-4.0) gm/dl Albumin/Globulin Ratio (0.9-2) Procalcitonin 0.06 (0-0.5) ng/ml TSH 3.290 (0.300-4.500) uIu/ml Urine Color Urine Appearance (Clear) Urine pH (4.5-7.5) Ur Specific [place] (1.000-1.030) Urine Protein (Negative) Urine Glucose (UA) (Negative) Urine Ketones (Negative) Urine Blood (Negative) Urine Nitrite (Negative) Urine Bilirubin (Negative) Urine Urobilinogen (Negative) Ur Leukocyte Esterase (Negative) Urine WBC (Auto) (0-5) /hpf Urine RBC (Auto) (0-4) /hpf U Hyaline Cast (Auto) (0-5) /lpf U Epithel Cells (Auto) (0-5) /lpf Urine Bacteria (Auto) (Negative) Influenza Type A (PCR) Neg for Influ A (Neg) Influenza Type B (PCR) Neg for Influ B (Neg) 12/09/19 12/09/19 12/09/19 Range/Units 17:35 17:52 19:00 WBC (4.8-10.8) K/uL RBC (4.7-6.1) M/uL Hgb (14.0-18.0) g/dL Hct (42-52) % MCV (80-100) fL MCH (25-34) pg MCHC (32-36) g/dL RDW Std Deviation (36.4-46.3) fL RDW Coeff of Anny (11.5-14.5) % Plt Count (130-400) K/uL MPV (7.4-10.4) fL Immature Gran % (Auto) % Neut % (Auto) % Lymph % (Auto) % [place]he % (Auto) % Eos % (Auto) % Baso % (Auto) % Immature Gran # (Auto) (0.00-0.02) K/uL Neut # (Auto) (1.4-6.5) K/uL Lymph # (Auto) (1.2-3.4) K/uL [place]he # (Auto) (0.11-0.59) K/uL Eos # (Auto) (0-0.5) K/uL Baso # (Auto) (0-0.2) K/uL PT (9.0-12.0) Seconds INR (0.9-1.1) APTT (21.0-31.0) Seconds PTT Ratio Sodium (136-145) mmol/L Potassium (3.5-5.1) mmol/L Chloride (98-107) mmol/L Carbon Dioxide (21-32) mmol/L Anion Gap (3-11) BUN (7-18) mg/dl Creatinine (0.6-1.4) mg/dl Est Cr Clr Drug Dosing ml/min Est GFR ( Amer) Est GFR (Non-Af Amer) BUN/Creatinine Ratio (10-20) Glucose (70-99) mg/dl Lactate 1.8 (0.4-2.0) mmol/L Calcium (8.5-10.1) mg/dl Magnesium (1.8-2.4) mg/dl Total Bilirubin (0.2-1) mg/dl AST (15-37) U/L ALT (12-78) U/L Alkaline Phosphatase (45-117) U/L Total Creatine Kinase 81 (39-308) U/L Troponin I (0-0.045) ng/ml Total Protein (6.4-8.2) gm/dl Albumin (3.4-5.0) gm/dl Globulin (2.5-4.0) gm/dl Albumin/Globulin Ratio (0.9-2) Procalcitonin (0-0.5) ng/ml TSH (0.300-4.500) uIu/ml Urine Color Yellow Urine Appearance Clear (Clear) Urine pH 5.0 (4.5-7.5) Ur Specific [place] 1.016 (1.000-1.030) Urine Protein 2+ H (Negative) Urine Glucose (UA) Negative (Negative) Urine Ketones Negative (Negative) Urine Blood Negative (Negative) Urine Nitrite Negative (Negative) Urine Bilirubin Negative (Negative) Urine Urobilinogen Negative (Negative) Ur Leukocyte Esterase Negative (Negative) Urine WBC (Auto) 1-5 (0-5) /hpf Urine RBC (Auto) 0-4 (0-4) /hpf U Hyaline Cast (Auto) 10-30 H (0-5) /lpf U Epithel Cells (Auto) 20-30 H (0-5) /lpf Urine Bacteria (Auto) Negative (Negative) Influenza Type A (PCR) (Neg) Influenza Type B (PCR) (Neg) Imaging Data Radiologist's Impression: Radiology results as stated below per my review and the radiologist's interpretation: CT abd pelvis wo con FINDINGS: 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 Lung bases: Calcified foci within the pericardial fat, possibly old fat necrosis or calcified lymph node. Coronary artery and aortic valve calcification. Top normal heart size. No pericardial or pleural effusion. No focal infiltrate or nodule at the lung bases. Liver: Congenital hypoplasia of the medial segments of the left hepatic lobe. Normal liver density. Biliary: No gross biliary ductal dilatation allowing for noncontrast technique. Normal gallbladder. Pancreas: Normal noncontrast appearance. Spleen: Normal noncontrast appearance. Splenule noted. Adrenal glands: Normal noncontrast appearance. Kidneys and ureters: Normal noncontrast appearance. No nephrolithiasis. No hydronephrosis. Normal ureters. Bladder: Significant circumferential bladder wall thickening. Pelvic organs: Marked prostatic enlargement likely secondary to benign prostatic hyperplasia. Bowel: Mild diverticulosis of the mid sigmoid colon without wall thickening or p ericolonic inflammatory change. The appendix is normal. No bowel obstruction. Duodenal diverticulum noted at the level of the pancreatic head. Peritoneal cavity: No free fluid or intraperitoneal gas. Lymph nodes: No gross lymphadenopathy allowing for noncontrast technique. Vasculature: Atherosclerosis of the normal caliber abdominal aorta. Abdominal wall: Small fat-containing inguinal hernias. Musculoskeletal: Total right hip arthroplasty. Degenerative changes of the spine. Partially visualized median sternotomy. No acute osseous injury. Several old rib fractures noted. Multiple lucent lesions are suspected including in the lumbar spine and left superior acetabulum. These have not significantly changed since prior CT. Degenerative changes of the sacroiliac joints. Sacrum grossly intact. Degenerative changes of the left hip and pubic symphysis. Bilateral pars defects of L5. IMPRESSION: 1. Allowing for noncontrast technique, no convincing evidence of acute intra- abdominal pathology. No acute osseous injury. 2. Significant chronic bladder outlet obstruction secondary to marked prostatomegaly. 3. Additional chronic findings as above. ACT 112: Negative or not required by law. Electronically signed by: Faustino Manning M.D. 12/09/2019 5:[address] SCAN OF THE CERVICAL SPINE FINDINGS: Skeletal structures: The skeletal structures are osteopenic. There is no evidence of acute fracture or subluxation involving the cervical spine. There is incomplete bony fusion of the anterior C1. This is new from 2011 and likely represents remote fracture. This is well corticated with no evidence of acutely. Vertebral body is maintained. There is 4 mm of anterolisthesis at C4-C5. This has minimally increased dated back to 2011. Minimal anterolisthesis is noted at C5-C6. Alignment is otherwise preserved. There is straightening of cervical ghada dosis with reversal centered at C5. Anterior osteophytes are seen throughout. The odontoid process and lateral masses are intact. The atlantoaxial articulation is preserved noting advanced productive degenerative change. The spinous processes appear intact. There is moderate to advanced multilevel c ervical spondylosis. Uncovertebral and facet arthropathy contribute to neural foraminal stenosis at most levels. Intervertebral discs: There is advanced disc space narrowing seen at C5-C6 and C7-T1. Moderate disc space narrowing seen at C3-C4, C4-C5, and C6-C7. Central canal: Posterior disc osteophyte complexes are seen at all levels between C3-C4 and C7-T1. This likely contributes to multilevel acquired compromise of the central canal. Soft tissues: The prevertebral and paraspinous soft tissues are within normal limits. Atherosclerotic calcification is noted in the carotid bulbs. Calvarium: The visualized calvarium at the skull base appears intact. Brain parenchyma: Partially visualized brain parenchyma the skull base is within normal limits. Sinuses and mastoids: Mucosal thickening is noted in the left sphenoid sinus. There are large bilateral mastoid effusions. Lung apices: Clear as visualized. IMPRESSION: 1. There is no evidence of fracture or subluxation involving the cervical spine. 2. Osteopenia and spondylotic change as above. 3. Large mastoid effusions. ACT 112: Negative or not required by law. Electronically signed by: Gonzales Alvarado M.D. 12/09/2019 5:[address] SCAN OF THE BRAIN WITHOUT IV CONTRAST FINDINGS: Brain parenchyma: There are age-related involutional changes noting mild subcortical and periventricular microangiopathic change. There is no hemorrhage, mass effect, or evidence of acute territorial ischemia by CT criteria. Jain- white matter differentiation is preserved. No extra-axial fluid collection is seen. Ventricles, sulci, cisterns: Prominent secondary to involutional change. Intracranial vasculature: There is atherosclerotic calcification of the cavernous carotid and vertebral arteries. Calvarium: Skeletal structures are osteopenic. No depressed calvarial fracture is identified. Sinuses and mastoids: There is moderate mucosal thickening seen in the left maxillary antrum. Mild secretions are noted in the left sphenoid sinus. There is trace mucosal thickening within the left frontal and ethmoid sinuses. Large mastoid effusions are identified. Orbits: The bony orbits are grossly intact. There are bilateral ocular lens implants. IMPRESSION: There is no hemorrhage, mass effect, or evidence of acute territorial ischemia by CT criteria. ACT 112: Negative or not required by law. Electronically signed by: Gonzales Alvarado M.D. 12/09/2019 5:15 PM XR chest 1V portable FINDINGS: Median sternotomy wires and mediastinal surgical clips. Atherosclerosis and tortuosity of the thoracic aorta. Cardiac silhouette mildly enlarged. Mildly heterogeneous radiolucency of the lungs. No focal opacity. No large effusion or pneumothorax. Old left rib fractures noted. Osteopenia suggested. Degenerative changes of the spine. Upper abdomen normal. IMPRESSION: 1. Cardiomegaly. No other convincing evidence of acute cardiopulmonary disease. ACT 112: Negative or not required by law. Electronically signed by: Faustino Manning M.D. 12/09/2019 5:00 PM XR pelvis 1-2V routine FINDINGS: Postsurgical changes of total right hip arthroplasty. Periprosthetic lucency noted along the inferior aspect of the acetabular component. No periprosthetic fracture. Remainder of the bony pelvis is grossly intact. Sacral iliac joints and pubic symphysis intact. Left hip joint intact. Advanced degenerative changes of the lower lumbar spine. Limited evaluation of the sacrum. Left femoral neck grossly intact. Atherosclerotic calcifications noted. IMPRESSION: 1. No acute osseous injury. 2. Total right hip arthroplasty. Greater lucency along the inferior aspect of the acetabular component in comparison to prior. This may suggest underlying osteolysis/particle disease. No convincing evidence of a periprosthetic fracture. ACT 112: Negative or not required by law. Electronically signed by: Faustino Manning M.D. 12/09/2019 5:03 PM ECG Data Attestation: I personally reviewed and interpreted this ECG as follows: Indication: + weakness Rate (beats per minute): 62 Rhythm: + sinus rhythm ECG Intervals/blocks: + First degree AV block ECG ST segments: no ST depression and no ST elevation Additional Comments: IN 226, QRS/QTC within normal limits. Blood Pressure Blood Pressure Findings: Normal blood pressure Blood Pressure Disposition: did not require urgent referral MDM Narrative Vital signs stable. Labs within normal limits with exception of an elevated creatinine. Patient's imaging shows no acute traumatic injury. Family at bedside states that the patient has been progressively getting weaker and having increasing falls. They state they concerned that the patient is becoming difficult to care for at home due to his weakness and recurrent falls. I did discuss with them if they would like the patient seen for placement at a [facility]. They stated that they have not discussed this with the family and needs more time to discuss. Patient will be admitted for acute kidney injury, IV fluids continued. Upon reevaluation, the patient is stable. I discussed the findings and the treatment plan with the patient. He expresses agreement and understanding. Dr. Echeverria - HospitalistEj. The patient will be evaluated for further management. Impression & Plan Acute kidney injury Discharge Plan Visit Data *Final* Discharge Date/Time: 12/09/19 21:03 Chief Complaint: Weakness Stated Complaint: LEG WEAKNESS, UNSTEADY GAIT ED Provider: Joe Hernandes Discharge Problem: Acute kidney injury Patient Disposition: Admitted As Inpatient Discharge Instructions Interventions: ED Discharge Assessment Last Done: 12/09/19 21:03 The scribe's documentation has been prepared under my direction and personally reviewed by me in its entirety. I confirm that the note above accurately reflects all work, treatment, procedures, and medical decision making performed by me.
[2019-12-09] MEDS: INSULIN ASPART 100 UNITS/ML 3 ML PEN SC SCH (22:31)
[2019-12-09] MEDS: HEPARIN SOD 5,000 UNIT/0.5 ML VIAL SQ SCH (22:32)
[2019-12-09] MEDS: cephALEXin 500 MG CAP PO SCH (23:18)
[2019-12-10] MEDS ORDERED: guaiFENesin SUGAR FREE 200 MG/10 ML UDC PO PRN (04:35)
[2019-12-10] MEDS: HEPARIN SOD 5,000 UNIT/0.5 ML VIAL SQ SCH ×3 (05:12→20:40)
[2019-12-10 06:21] LABS: Estimated Average Glucose 137 mg/dl; Hemoglobin A1C 6.4 % (4.5-5.6)
[2019-12-10 07:25] LABS: Basophils # (auto) 0.02 K/uL (0-0.2); Basophils % (auto) 0.3 %; Eosinophils # (auto) 0.11 K/uL (0-0.5); Eosinophils % (auto) 1.8 %; Hematocrit (blood only) 39.5 % (42-52); Hemoglobin 13.1 g/dL (14.0-18.0); Immature Granulocytes # (auto) 0.01 K/uL (0.00-0.02); Immature Granulocytes % (auto) 0.2 %; Lymphocytes # (auto) 1.07 K/uL (1.2-3.4); Lymphocytes % (auto) 17.9 %; Mean Corpuscular Hemoglobin 28.1 pg (25-34); Mean Corpuscular Hgb Conc 33.2 g/dL (32-36); Mean Corpuscular Volume 84.8 fL (80-100); Mean Platelet Volume 9.5 fL (7.4-10.4); Monocytes # (auto) 0.48 K/uL (0.11-0.59); Neutrophils % (auto) 71.8 %; Platelet Count 110 K/uL (130-400); RDW Coefficient of Variation 14.5 % (11.5-14.5); RDW Standard Deviation 45.2 fL (36.4-46.3); Red Blood Count 4.66 M/uL (4.7-6.1); White Blood Count 5.99 K/uL (4.8-10.8)
[2019-12-10] MEDS: INSULIN ASPART 100 UNITS/ML 3 ML PEN SC SCH ×4 (07:59→20:39)
[2019-12-10 08:00] LABS: BUN Creatinine Ratio 17.1 (10-20); Creatinine Clr Calc Pharmacy 49.3 ml/min; Est GFR (African American) 61.3; Est GFR (Non-African American) 52.9; Potassium 3.8 mmol/L (3.5-5.1)
[2019-12-10] MEDS: cephALEXin 500 MG CAP PO SCH ×2 (08:00→20:40)
[2019-12-10] MEDS: AMANTADINE HCL 100 MG CAPSULE PO SCH (08:00)
[2019-12-10] MEDS: ESCITALOPRAM OXALATE 20 MG TAB PO SCH (08:01)
[2019-12-10] MEDS: TAMSULOSIN HCL 0.4 MG CAP PO SCH (08:01)
[2019-12-10] MEDS: ATORVASTATIN 40 MG TAB PO SCH (08:01)
[2019-12-10] MEDS: DONEPEZIL HCL 5 MG TAB PO SCH (08:01)
[2019-12-10] MEDS: ASPIRIN 81 MG ECTAB PO SCH (08:01)
--- NOTE | 2019-12-10 20:53 | Hospitalist Progress Note ---
Date of Service December 10, 2019 Assessment & Plan (1) Acute kidney injury: Presented with generalized weakness. Serum creatinine 1.71, compared to baseline creatinine of 1.0. Hold diuretics. IV fluids. (2) CAD (coronary artery disease): No anginal symptoms. Continue ASA. (3) HTN (hypertension): Managed with triamterene / HCTZ. Holding diuretic due to DORYS. (4) Diabetes mellitus type 2 with complications: DM type 2, complicated by CAD. Usually managed with metformin at home. Hgb A1c 6.4. Hold metformin during hospital stay. Lantus / NovoLog per protocol. FBS this morning = 112. (5) BPH (benign prostatic hyperplasia): Records indicate history of BPH, but pt does not recall. CT demonstrates prostatomegaly and evidence of bladder outlet obstruction. Patient experiences nocturia about twice a night. Check post void residuals. Consider alpha augie, but need to watch carefully for orthostasis. (6) Parkinson disease: History of Parkinson's disease or Parkinsonian symptoms. Review old records. Watch for orthostasis. (7) Dementia: History of dementia. Review old records regarding underlying etiology. Continue donepezil. Monitor for delirium. (8) DVT prophylaxis: SQ heparin. Ambulate. (9) Discharge planning issues: Anticipated discharge to home. Family Medicine follow-up with Dr. Hinton. Admission and Anticipated Discharge Date Admission Date: December 09, 2019 Subjective Recheck for multiple problems. Patient seen in their room around 1520. Admitted yesterday with DORYS and other problems. Received IV fluids. Feels better today. Review of Systems: Constitutional- no fever. Cardiac- no chest pain. Pulmonary- no cough or SOB. GI- no nausea, vomiting, diarrhea, melena, hematochezia. - no urinary symptoms. Otherwise, as noted above. Physical Exam Constitutional: no acute distress Respiratory: no respiratory distress Auscultation: lungs clear to auscultation bilaterally Cardiovascular: Rate/Rhythm: regular rate and regular rhythm Vessels: no JVD Extremities: no calf tenderness and no edema Gastrointestinal (Abdomen): normal bowel sounds, soft, nontender, no hepatosplenomegaly Skin: no rashes, warm and dry Psychiatric: Orientation: alert and oriented x 3 Results & Data ([facility]) Vital Signs (Past 12 Hours) Vital Signs Temp Pulse Resp BP Pulse Ox 12/10/19 13:13 36.4 C L 61 18 124/66 96 12/10/19 12:10 36.5 C 69 18 152/74 H 97 Laboratory Results 12/10/19 07:15 12/10/19 07:15
--- NOTE | 2019-12-10 21:15 | Electrocardiogram Report ---
Test Reason : Blood Pressure : / mmHG Vent. Rate : 062 BPM Atrial Rate : 062 BPM P-R Int : 226 ms QRS Dur : 100 ms QT Int : 404 ms P-R-T Axes : 049 -48 107 degrees QTc Int : 410 ms Sinus rhythm with 1st degree A-V block Left axis deviation Incomplete right bundle branch block Nonspecific ST and T wave abnormality Inferior infarct Abnormal ECG When compared with ECG of 03-SEP-2018 06:28, Premature ventricular complexes are no longer Present CA interval has increased Vent. rate has decreased BY 30 BPM Confirmed by Richardson Leone ([id number]) on 12/10/2019 9:15:22 PM Referred By: REFERRED SELF Confirmed By:Richardson Leone
[2019-12-11] MEDS: HEPARIN SOD 5,000 UNIT/0.5 ML VIAL SQ SCH ×2 (05:47→13:22)
[2019-12-11 07:22] LABS: Hematocrit (blood only) 38.7 % (42-52); Mean Corpuscular Hemoglobin 28.5 pg (25-34); Mean Corpuscular Hgb Conc 33.6 g/dL (32-36); Mean Corpuscular Volume 84.9 fL (80-100); Mean Platelet Volume 9.3 fL (7.4-10.4); Platelet Count 100 K/uL (130-400); RDW Coefficient of Variation 14.4 % (11.5-14.5); RDW Standard Deviation 44.5 fL (36.4-46.3); Red Blood Count 4.56 M/uL (4.7-6.1); White Blood Count 3.88 K/uL (4.8-10.8)
[2019-12-11] MEDS: cephALEXin 500 MG CAP PO SCH (07:35)
[2019-12-11] MEDS: ATORVASTATIN 40 MG TAB PO SCH (07:36)
[2019-12-11] MEDS: TAMSULOSIN HCL 0.4 MG CAP PO SCH (07:36)
[2019-12-11] MEDS: ESCITALOPRAM OXALATE 20 MG TAB PO SCH (07:36)
[2019-12-11] MEDS: ASPIRIN 81 MG ECTAB PO SCH (07:36)
[2019-12-11] MEDS: DONEPEZIL HCL 5 MG TAB PO SCH (07:36)
[2019-12-11] MEDS: AMANTADINE HCL 100 MG CAPSULE PO SCH (07:37)
[2019-12-11 07:49] LABS: BUN Creatinine Ratio 17.5 (10-20); Calcium 8.7 mg/dl (8.5-10.1); Creatinine Clr Calc Pharmacy 50.8 ml/min; Est GFR (African American) 63.6; Est GFR (Non-African American) 54.9
[2019-12-11] MEDS: INSULIN ASPART 100 UNITS/ML 3 ML PEN SC SCH ×2 (09:09→13:19)
--- NOTE | 2019-12-11 11:01 | Hospitalist Progress Note ---
Date of Service December 11, 2019 Assessment & Plan (1) Acute kidney injury: Presented with generalized weakness. Serum creatinine 1.71, compared to baseline creatinine of 1.0. Held diuretics. Received IV fluids. Creatine today 1.27. Just recently started on triamterene / HCTZ daily for lower extremity edema. Try changing dose to Q MWF to avoid volume depletion and associated problems. Recheck BMP in clinic. (2) Weakness: Patient presented to ED with weakness. Most likely explanation seems to be dehydration with DORYS. Recent cough, essentially resolved. Mild leukopenia (3880). Mild thrombocytopenia (100,000). ? viral illness. Recheck CBC in clinic. Further evaluation as clinically indicated. (3) CAD (coronary artery disease): No anginal symptoms. Continue ASA. (4) HTN (hypertension): Taking triamterene / HCTZ, but developed weakness and elevated creatinine. Held diuretic due to DORYS. Try changing dose to Q MWF to avoid volume depletion and associated problems. (5) Diabetes mellitus type 2 with complications: DM type 2, complicated by CAD. Usually managed with metformin at home. Hgb A1c 6.4. Hold metformin during hospital stay. Lantus / NovoLog per protocol. FBS this morning = 102. Discharge on usual regimen. (6) BPH (benign prostatic hyperplasia): CT demonstrates prostatomegaly and evidence of bladder outlet obstruction. Patient experiences nocturia about twice a night. Takes tamsulosin daily in the morning. Post void residuals per bedside US < 150. Change tamsulosin to HS to avoid orthostasis. (7) Parkinson disease: History of Parkinsonism attributed to neuro complications from prolonged cardiac surgery. Followed by Neuro at [facility]. Watch for orthostasis. (8) Dementia: History of dementia attributed to neuro complications from prolonged cardiac surgery. Followed by Neuro at [facility]. Continue donepezil and amantadine. Monitor for delirium. 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 Followed by ID. 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 Possible benefits of probiotics discussed as well as need for C diff testing if diarrhea occurs. (10) DVT prophylaxis: SQ heparin. Ambulate. (11) Discharge planning issues: Discharge to home. concerned about worsening mobility related to Parkisonism. PT / OT evaluations obtained. Home health evaluation with PT & OT requested. Family Medicine follow-up with Dr. Hinton. Admission and Anticipated Discharge Date Admission Date: December 09, 2019 Subjective Recheck for multiple problems. visiting. Feels much better. Stronger. No orthostatic lightheadedness. Ambulating. No fever, cough, SOB, nausea, vomiting, diarrhea. Ready to go home. Physical Exam Constitutional: no acute distress Respiratory: no respiratory distress Auscultation: lungs clear to auscultation bilaterally Cardiovascular: Rate/Rhythm: regular rate and regular rhythm Vessels: no JVD Extremities: no calf tenderness and no edema Gastrointestinal (Abdomen): normal bowel sounds, soft, nontender, no hepatosplenomegaly Skin: no rashes, warm and dry Psychiatric: Orientation: alert and oriented x 3 (some problems with short term memory, but O x 3, able to name president) Results & Data ([facility]) Vital Signs (Past 12 Hours) Vital Signs Temp Pulse Pulse Resp BP Pulse Ox 12/11/19 07:59 36.4 C L 72 21 134/65 97 12/10/19 23:10 36.5 C 76 18 134/65 97 Laboratory Results 12/11/19 06:57 12/11/19 06:57
--- NOTE | 2019-12-12 11:14 | Discharge Summary ---
Date of Service Date of Admission: 12/09/19 Date of Discharge: 12/11/19 Admission HPI Per Admitting Provider History obtained from patient, family, and records. Medical history significant for hypertension, hyperlipidemia, Parkinson's, dementia, CAD sp CABG, medullary sponge kidney as per records, BPH, history recurrent cellulitis on chronic Keflex Rx.. Recent confinement August 2018 for sepsis secondary to bilateral lower extremity cellulitis/group B strep bacteremia. Patient discharged on suppressive Keflex Rx due to recurrent disease. This morning patient noted increasing generalized weakness without flulike symptoms, fever, chills, chest pain, S OB, abdominal pain, diarrhea, dysuria. Dry cough symptoms. Appetite good as per patient. Patient recovered from complicated bronchitis episode along with about 3 weeks ago status post Z- Frank Rx from PCP. Patient brought to the ER for evaluation. Principal Diagnosis acute kidney injury OTHER ACUTE / NEW DIAGNOSES: probable viral illness Discharge Data Allergies Allergy/AdvReac Type Severity Reaction Status Date / Time YONATAN Inhibitors AdvReac Unknown Cough Verified 12/09/19 16:46 Consultations 12/09/19 18:59 ED Decision to Admit Stat 12/09/19 21:48 Consult Case Management - Discharge Planning Routine Ordered Studies 12/09/19 16:45 CT abd pelvis wo con Stat CT cervical spine wo con Stat CT head/brain wo con Stat Hospital Course (1) Acute kidney injury: Presented with generalized weakness. Serum creatinine 1.71, compared to baseline creatinine of 1.0. Held diuretics. Received IV fluids. Creatine today 1.27. Just recently started on triamterene / HCTZ daily for lower extremity edema. Try changing dose to Q MWF to avoid volume depletion and associated problems. Recheck BMP in clinic. (2) Weakness: Patient presented to ED with weakness. Most likely explanation seemed to be dehydration with DORYS. Did not appear to be septic; no evidence of pneumonia, UTI, intra-abdominal infection. Recent cough, essentially resolved. Mild leukopenia (3880). Mild thrombocytopenia (100,000). ? viral illness. Recheck CBC in clinic. Further evaluation as clinically indicated. (3) CAD (coronary artery disease): No anginal symptoms. Continue ASA. (4) HTN (hypertension): Taking triamterene / HCTZ, but developed weakness and elevated creatinine. Held diuretic due to DORYS. Try changing dose to Q MWF to avoid volume depletion and associated problems. (5) Diabetes mellitus type 2 with complications: DM type 2, complicated by CAD. Usually managed with metformin at home. Hgb A1c 6.4. Hold metformin during hospital stay. Lantus / NovoLog per protocol. FBS this morning = 102. Discharge on usual regimen. (6) BPH (benign prostatic hyperplasia): CT demonstrates prostatomegaly and evidence of bladder outlet obstruction. Patient experiences nocturia about twice a night. Takes tamsulosin daily in the morning. Post void residuals per bedside US < 150. Change tamsulosin to HS to avoid orthostasis. (7) Parkinson disease: History of Parkinsonism attributed to neuro complications from prolonged cardiac surgery. Followed by Neuro at [facility]. Watch for orthostasis. (8) Dementia: History of dementia attributed to neuro complications from prolonged cardiac surgery. Followed by Neuro at [facility]. Continue donepezil and amantadine. Monitor for delirium. 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 Followed by ID. 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 Possible benefits of probiotics discussed as well as need for C diff testing if diarrhea occurs. (10) DVT prophylaxis: SQ heparin. Ambulate. (11) Discharge planning issues: Discharge to home. concerned about worsening mobility related to Parkisonism. PT / OT evaluations obtained. Home health evaluation with PT & OT requested. Family Medicine follow-up with Dr. Hinton. Total Time Total Time Spent Total Time Spent (In Minutes): 30 Discharge Plan Discharge Items Patient Disposition: Home - Home Health Services Reason For Visit: weakness Discharge Diagnosis: dehydration Condition on Discharge: Good Activity: Per Instructions section Non-emergency contact: Primary Care Provider, Hospitalist and Neurologist Call non-emergency contact if: you have any medication questions, your symptoms worsen and your temperature is above 101 Follow-up/Referrals: Michael Hinton MD [Primary Care Provider] - 12/16/19 1:00 pm (12/16/2019 1:00 PM Michael Hinton MD) Diet: Carb Consistent or DM2 and Heart Healthy Addtl Attending Provider Instructions: MEDICATION CHANGES: Change triamterene / hydrochlorothiazide (Dyazide or Maxzide) to 1 pill 3 times a week on Mon-Mon-Mon. Take tamsulosin (Flomax) at bedtime to help avoid daytime lightheadedness / dizziness. You had a dose in hospital on Monday, so start bedtime dose on . SUMMARY OF TEST RESULTS: Blood tests showed: dehydration slightly decreased white blood cell count and platelets, perhaps from viral infection Flu test was negative. Chest x-ray did not show any sign of pneumonia. Urine sample did not show infection. CT scan of abdomen did not show any apparent infection. Hemoglobin A1c was 6.4. RECOMMENDATIONS FOR FOLLOW-UP: Neurology appointment in [place] as scheduled. Please ask Dr. Hinton to check blood tests in clinic: complete blood count basic metabolic profile OTHER INSTRUCTIONS: Plan your movements in advance. Rise slowly from lying or sitting position. Do not turn quickly. Use walker for safety when out of the house. You are taking cephalexin to help prevent recurrent skin infection of legs (cellulitis). Taking a probiotic may help prevent C diff diarrhea. Please let your family know if you develop diarrhea 3 or more times a day, or if you have abdominal pain or bloody stools. Seek medical attention if you have: * temperature above 101 * chest pain or trouble breathing * abdominal pain, nausea, vomiting * diarrhea, dark stools or bloody stools * any unanswered questions or concerns Call 911 if symptoms are severe. Please take good care of yourself. Call if you have any questions or problems. You can reach a [facility] hospitalist on duty at [facility] 24 hours a day by calling [phone]. My cell # is [phone]. Pending Studies at Discharge: No Stand-Alone Forms: My [facility], Smoking Cessation Medications and DC Order Prescriptions: New triamterene-hydrochlorothiazid 37.5-25 mg tablet See Rx Instructions .ROUTE .COMPLEX Qty: 90 RF: 0 Continued donepezil 5 mg tablet 5 mg PO QAM RF: 0 amantadine HCl 100 mg tablet 100 mg PO BID RF: 0 cephalexin 500 mg capsule 500 mg PO BID Qty: 180 RF: 6 atorvastatin 40 mg Tablet 40 mg PO QAM RF: 0 aspirin [Aspir-81] 81 mg Tablet,Delayed Release (Dr/Ec) 81 mg PO QAM RF: 0 metformin 500 mg tablet extended release 24 hr 1,000 mg PO QAM RF: 0 escitalopram oxalate 20 mg tablet 20 mg PO QAM RF: 0 Changed tamsulosin 0.4 mg capsule 0.4 mg PO HS Qty: 90 RF: 0 Discontinued triamterene-hydrochlorothiazid 37.5-25 mg tablet 1 tab PO WK Qty: 15 RF: 2 Discharge Orders: Discharge Order (Routine); Ordered 12/11/19 Ordered By: Bassam Reyes Admission Data Admit Date/Time: 12/09/19 20:48 Attending Provider: Bassam Reyes Admit Provider: Eduardo Echeverria Primary Care Provider: Michael Hinton Other Providers: Eduardo Echeverria ; [place] Other Interventions: Discharge Summary Assessment (RN) Last Done: 12/11/19 11:19 DC Date/Time DO NOT enter until pt leaves facility: 12/11/19 13:56
== END 2019-12-11 13:56 | disposition home health service (06) ==
LOC: 2N 15:54 → ED 15:54 → SUATTDRO 20:48 → 2N 21:03 → 3N 12-10 13:04

== ENCOUNTER 2020-07-07 16:53 | Inpatient (IN) ==
--- NOTE | 2020-07-07 17:28 | Emergency Department Note ---
Impression & Plan Acute GI bleeding, Symptomatic anemia, Abnormal ECG ED Provider Note NAME: CHE BURCH AGE: 75 SEX: M : 1945 ARRIVES VIA: Walk-In INFORMANT: Patient ED PROVIDER(S): Chandra Lundy DO CHIEF COMPLAINT: Shortness of breath HPI: Patient is a 75-year-old male with a previous history of a CABG as well as moderate to severe MR that presents the ER for shortness of breath with exertion. Has been getting worse over the past 2 weeks. He saw his PCP today and was found to have an abnormal EKG and was referred in. He denies any chest pain. No belly pain nausea vomiting or diarrhea. No weakness or numbness in his arms or legs. No other complaints. He denies any swelling of his legs. No recent trips or travel. No coughing up blood or history of blood clots. No loss of taste or smell. Denies any cough or upper respiratory symptoms. Notes the shortness of breath improves with rest but is worse with exertion. He currently has none at this time as he is resting. Denies any dark tarry stools or bright red blood per rectum. ROS: See above HPI for pertinent positives & negatives. A total of 10 systems reviewed and were otherwise negative. PAST MEDICAL HISTORY:See Below PAST SURGICAL HISTORY:See Below FAMILY HISTORY:See Below SOCIAL HISTORY:See Below HOME MEDICATIONS:See Below ALLERGIES:See Below VITALS:See Below PHYSICAL EXAMINATION: GENERAL: Sitting up in bed, alert, well appearing, well nourished, no distress, non-toxic EYE EXAM: normal conjunctiva. OROPHARYNX: no exudate, no erythema, lips, buccal mucosa, and tongue normal and mucous membranes are moist NECK: supple, no nuchal rigidity, no adenopathy, non-tender LUNGS: Clear to auscultation. Normal chest wall mechanics HEART: no murmurs, S1 normal and S2 normal ABDOMEN: abdomen soft, non-tender, normo-active bowel sounds, no masses, no rebound or guarding. BACK: Back is symmetrical on inspection and there is no deformity, no midline tenderness, no CVA tenderness. SKIN: no rashes and no bruising RECTAL: Hem+ UPPER EXTREMITIES: upper extremities are grossly normal. LOWER EXTREMITIES: No pitting edema. Calves are equal bilateral NEURO EXAM: Normal sensorium, cranial nerves II-XII grossly intact, normal speech, no gross weakness of arms, no gross weakness of legs. No drift. MEDICAL DECISION MAKING: Patient is a a 75-year-old male who presents the ER for dyspnea on exertion which is been worsening over the past 2 weeks. Referred in by PCP for abnormal EKG. Denies any chest pain. IV was established blood work was obtained and tran wed a mild leukopenia at 3.9 thousand. Hemoglobin at 7.2 down from 13 in November. Platelets were normal. D-dimer was elevated at 540. BMP with slightly elevated creatinine at 1.5. LFTs bilirubin troponin was negative. Lipase slightly elevated at 456. Patient was rectally heme positive. CT Angio of the chest was negative. Patient was typed and crossed and ordered 1 unit PRBC while in the ER. Discussed with the hospitalist for admission secondary to symptomatic anemia I do believe that this likely cause of his abnormal EKG. Triage Nursing notes reviewed. Prior medical records reviewed Vital Signs: reviewed and remarkable for no significant abnormalities Differential diagnosis: Differential diagnoses includes but is not limited to acute coronary syndrome, myocardial infarction, pericarditis, pulmonary embolus, aortic dissection, pneumonia, pneumothorax, musculoskeletal, shingles, esophageal. ER treatment provided: See below Diagnostics interpreted by me: ECG: Sinus rhythm rate [address] depressions in the high lateral leads as well as V4 V5 and V6 Right bundle branch block Depressions in the high lateral leads and lateral leads is new in comparison to old performed on 06/07/2019 in [facility] Cardiac Monitoring: An order was placed for continuous cardiac monitoring. The monitor shows a rate of 80 with sinus rhythm. Laboratory studies: As stated above and show below. Imaging studies: CT Niki of the chest was unremarkable Portable AP upright 1 view of the chest was unremarkable Consultation(s): D/w Dr. Johan Reyes for admission ED COURSE: Procedures: none Critical Care: None Past Med/Surg History Medical History (Updated 07/07/20 @ 20:37 by Chandra Lundy DO) Anxiety Arthritis Atrial ectopy BPH (benign prostatic hyperplasia) Carpal tunnel syndrome Cataracts, bilateral Coronary aneurysm (2011) Dementia Diabetes Diabetes mellitus type 2 with complications Edema of both legs HTN (hypertension) Orthostatic hypotension (07/2019) Recurrent cellulitis of lower extremity Sensorineural hearing loss (SNHL) Sensorineural hearing loss (SNHL) of both ears Sepsis due to group B Streptococcus (2017) Surgical History H/O eye surgery H/O foot surgery History of right hip replacement S/P CABG (coronary artery bypass graft) (2011) CHILDS, "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 S/P triple vessel bypass S/P wrist surgery Family History Unknown Heart disease Denies family history of Prostate cancer Social History Smoking Status: Never smoker Hx Alcohol Use: Yes Alcohol type: beer Hx Substance Use: No Preferred Language: Salvadorean Communication Ability: Effective Physician Required: No Beliefs That Will Affect Care: None marital status: Current Living Situation: Spouse Feels Safe at Home: Yes Allergies Allergies Allergy/AdvReac Type Severity Reaction Status Date / Time YONATAN Inhibitors AdvReac Mild Cough Verified 07/07/20 18:03 Home Meds Home Medications Medication Instructions Recorded Confirmed aspirin [Aspir-81] 81 mg PO QAM 09/02/18 07/07/20 atorvastatin 40 mg PO QAM 09/02/18 07/07/20 donepezil 5 mg tablet 5 mg PO QAM tab 07/11/19 07/07/20 metformin 500 mg tablet,extended 500 mg PO QAM tab 03/05/20 07/07/20 release 24 hr amantadine HCl 100 mg capsule 100 mg PO BID 05/22/20 07/07/20 Previous Rx's Medication Instructions Recorded tamsulosin 0.4 mg PO HS #90 cap 12/11/19 cephalexin 500 mg capsule 500 mg PO BID #60 cap 03/05/20 escitalopram oxalate 20 mg tablet 20 mg PO QAM #90 tab 03/05/20 triamterene 37.5 1 tab PO DAILY #90 tab 03/05/20 mg-hydrochlorothiazide 25 mg tablet Results & Data (ED) Vital Signs Vital Signs - 24 hr 07/07/20 16:58 07/07/20 17:41 07/07/20 18:00 Temperature 36.9 C Temperature Source Oral Pulse Rate 86 77 74 Pulse Rate [Apical] 77 Pulse Rate from SpO2 Sensor 72 Respiratory Rate 18 22 25 H Respiratory Effort / Characteristics Non-Labored Spontaneous Respiratory Depth Normal Blood Pressure 148/70 H 149/70 H Blood Pressure [Left Arm] 146/67 H Blood Pressure Mean 96 115 Blood Pressure Mean [Left Arm] 93 Pulse Oximetry 100 97 98 Oxygen Delivery Method Room Air Room Air Sepsis Recent Fever Within 48 Hours No Sepsis New/Unexplained Change in Mental Status No Sepsis Action Taken by Nursing No Action Required 07/07/20 19:00 07/07/20 19:30 Temperature Temperature Source Pulse Rate 91 H 76 Pulse Rate [Apical] Pulse Rate from SpO2 Sensor 81 78 Respiratory Rate 24 25 H Respiratory Effort / Characteristics Respiratory Depth Blood Pressure 160/75 H 175/75 H Blood Pressure [Left Arm] Blood Pressure Mean 107 95 Blood Pressure Mean [Left Arm] Pulse Oximetry 98 100 Oxygen Delivery Method Room Air Sepsis Recent Fever Within 48 Hours Sepsis New/Unexplained Change in Mental Status Sepsis Action Taken by Nursing Laboratory Data Result diagrams: 07/07/20 17:13 07/07/20 17:13 Lab Results 07/07/20 07/07/20 07/07/20 Range/Units 17:13 17:13 17:13 WBC 3.96 L (4.8-10.8) K/uL RBC 3.98 L (4.7-6.1) M/uL Hgb 7.2 L (14.0-18.0) g/dL Hct 25.5 L (42-52) % MCV 64.1 L (80-100) fL MCH 18.1 L (25-34) pg MCHC 28.2 L (32-36) g/dL RDW Std Deviation 44.8 (36.4-46.3) fL RDW Coeff of Anny 19.0 H (11.5-14.5) % Plt Count 157 (130-400) K/uL MPV 8.5 (7.4-10.4) fL Immature Gran % (Auto) 0.3 % Neut % (Auto) 71.1 % Lymph % (Auto) 18.9 % Maury % (Auto) 8.1 % Eos % (Auto) 1.3 % Baso % (Auto) 0.3 % Neut # (Auto) 2.82 (1.4-6.5) K/uL Lymph # (Auto) 0.75 L (1.2-3.4) K/uL Maury # (Auto) 0.32 (0.11-0.59) K/uL Eos # (Auto) 0.05 (0-0.5) K/uL Baso # (Auto) 0.01 (0-0.2) K/uL Immature Gran # (Auto) 0.01 (0.00-0.02) K/uL Polychromasia 1+ Hypochromasia Present Microcytosis Present Ovalocytes 1+ PT 11.2 (9.0-12.0) Seconds INR 1.1 (0.9-1.1) APTT 22.8 (21.0-31.0) Seconds PTT Ratio 0.8 D-Dimer 540 H* (0-500) ug/L FEU Sodium 141 (136-145) mmol/L Potassium 3.4 L (3.5-5.1) mmol/L Chloride 106 (98-107) mmol/L Carbon Dioxide 27 (21-32) mmol/L Anion Gap 8.0 (3-11) BUN 31 H (7-18) mg/dl Creatinine 1.50 H (0.6-1.4) mg/dl Est Cr Clr Drug Dosing 42.5 ml/min Est GFR ( Amer) 51.7 Est GFR (Non-Af Amer) 44.6 BUN/Creatinine Ratio 20.5 H (10-20) Glucose 157 H (70-99) mg/dl Calcium 9.2 (8.5-10.1) mg/dl Total Bilirubin 0.4 (0.2-1) mg/dl AST 15 (15-37) U/L ALT 20 (12-78) U/L Alkaline Phosphatase 113 (45-117) U/L Troponin I < 0.015 (0-0.045) ng/ml Total Protein 6.7 (6.4-8.2) gm/dl Albumin 3.7 (3.4-5.0) gm/dl Globulin 3.0 (2.5-4.0) gm/dl Albumin/Globulin Ratio 1.2 (0.9-2) Lipase 456 H (73-393) U/L Blood Type Antibody Screen Crossmatch 07/07/20 Range/Units 19:19 WBC (4.8-10.8) K/uL RBC (4.7-6.1) M/uL Hgb (14.0-18.0) g/dL Hct (42-52) % MCV (80-100) fL MCH (25-34) pg MCHC (32-36) g/dL RDW Std Deviation (36.4-46.3) fL RDW Coeff of Anny (11.5-14.5) % Plt Count (130-400) K/uL MPV (7.4-10.4) fL Immature Gran % (Auto) % Neut % (Auto) % Lymph % (Auto) % Maury % (Auto) % Eos % (Auto) % Baso % (Auto) % Neut # (Auto) (1.4-6.5) K/uL Lymph # (Auto) (1.2-3.4) K/uL Maury # (Auto) (0.11-0.59) K/uL Eos # (Auto) (0-0.5) K/uL Baso # (Auto) (0-0.2) K/uL Immature Gran # (Auto) (0.00-0.02) K/uL Polychromasia Hypochromasia Microcytosis Ovalocytes PT (9.0-12.0) Seconds INR (0.9-1.1) APTT (21.0-31.0) Seconds PTT Ratio D-Dimer (0-500) ug/L FEU Sodium (136-145) mmol/L Potassium (3.5-5.1) mmol/L Chloride (98-107) mmol/L Carbon Dioxide (21-32) mmol/L Anion Gap (3-11) BUN (7-18) mg/dl Creatinine (0.6-1.4) mg/dl Est Cr Clr Drug Dosing ml/min Est GFR ( Amer) Est GFR (Non-Af Amer) BUN/Creatinine Ratio (10-20) Glucose (70-99) mg/dl Calcium (8.5-10.1) mg/dl Total Bilirubin (0.2-1) mg/dl AST (15-37) U/L ALT (12-78) U/L Alkaline Phosphatase (45-117) U/L Troponin I (0-0.045) ng/ml Total Protein (6.4-8.2) gm/dl Albumin (3.4-5.0) gm/dl Globulin (2.5-4.0) gm/dl Albumin/Globulin Ratio (0.9-2) Lipase (73-393) U/L Blood Type A Positive Antibody Screen NEGATIVE Crossmatch See Detail Administered Medications Discontinued Medications Ioversol (Optiray 320 125ml) 118 ml IV ONCE ONE Stop: 07/07/20 18:21 Last Admin: 07/07/20 18:21 Dose: 1 ml Documented by: [id number] Discharge Plan Visit Data Chief Complaint: Abnormal Labs/Diagnostic Testing Stated Complaint: SOB, ABNORMAL EKG ED Provider: Chandra Lundy Discharge Problem: Acute GI bleeding, Symptomatic anemia, Abnormal ECG Forms Stand Alone Forms: [facility] Prescriptions Prescriptions: No Action cephalexin 500 mg capsule 500 mg PO BID Qty: 60 RF: 0 donepezil 5 mg tablet 5 mg PO QAM RF: 0 amantadine HCl 100 mg capsule 100 mg PO BID RF: 0 escitalopram oxalate 20 mg tablet 20 mg PO QAM Qty: 90 RF: 3 triamterene-hydrochlorothiazid 37.5-25 mg tablet 1 tab PO DAILY Qty: 90 RF: 3 atorvastatin 40 mg Tablet 40 mg PO QAM RF: 0 aspirin [Aspir-81] 81 mg Tablet,Delayed Release (Dr/Ec) 81 mg PO QAM RF: 0 tamsulosin 0.4 mg capsule 0.4 mg PO HS Qty: 90 RF: 0 metformin 500 mg tablet extended release 24 hr 500 mg PO QAM RF: 0
[2020-07-07 17:35] LABS: INR 1.1 (0.9-1.1); Partial Thromboplastin Ratio 0.8; Partial Thromboplastin Time 22.8 Seconds (21.0-31.0); Prothrombin Time 11.2 Seconds (9.0-12.0)
[2020-07-07 17:40] LABS: D Dimer 540 ug/L FEU (0-500)
--- NOTE | 2020-07-07 17:47 | XRay Report ---
XR chest 1V portable HISTORY: Atypical chest pain. Shortness of breath. COMPARISON: Chest 12/09/2019. FINDINGS: No pneumothorax. No pleural effusions. The cardiac silhouette remains mildly enlarged. Rota shaquille study. No evidence for pulmonary edema. No focal lung consolidations to suggest pneumonia. There are poststernotomy changes. Old, healed left-sided rib fractures. IMPRESSION: No significant change compared to the prior study. No acute process. Stable mild cardiomegaly. ACT 112: Negative or not required by law. Electronically signed by: José Miguel Rock M.D. 07/07/2020 5:46 PM
[2020-07-07 17:49] LABS: Alanine Aminotransferase 20 U/L (12-78); Albumin Level 3.7 gm/dl (3.4-5.0); Aspartate Aminotransferase 15 U/L (15-37); BUN Creatinine Ratio 20.5 (10-20); Blood Urea Nitrogen 31 mg/dl (7-18); Calcium 9.2 mg/dl (8.5-10.1); Carbon Dioxide 27 mmol/L (21-32); Chloride 106 mmol/L (98-107); Creatinine Clr Calc Pharmacy 42.5 ml/min; Est GFR (African American) 51.7; Est GFR (Non-African American) 44.6; Glucose 157 mg/dl (70-99); Lipase 456 U/L (73-393); Potassium 3.4 mmol/L (3.5-5.1); Sodium 141 mmol/L (136-145)
[2020-07-07 17:53] LABS: Basophils # (auto) 0.01 K/uL (0-0.2); Basophils % (auto) 0.3 %; Eosinophils # (auto) 0.05 K/uL (0-0.5); Eosinophils % (auto) 1.3 %; Hematocrit (blood only) 25.5 % (42-52); Hemoglobin 7.2 g/dL (14.0-18.0); Hypochromasia Present; Immature Granulocytes # (auto) 0.01 K/uL (0.00-0.02); Immature Granulocytes % (auto) 0.3 %; Lymphocytes # (auto) 0.75 K/uL (1.2-3.4); Lymphocytes % (auto) 18.9 %; Mean Corpuscular Hemoglobin 18.1 pg (25-34); Mean Corpuscular Hgb Conc 28.2 g/dL (32-36); Mean Corpuscular Volume 64.1 fL (80-100); Mean Platelet Volume 8.5 fL (7.4-10.4); Microcytosis Present; Monocytes # (auto) 0.32 K/uL (0.11-0.59); Monocytes % (auto) 8.1 %; Neutrophils # (auto) 2.82 K/uL (1.4-6.5); Neutrophils % (auto) 71.1 %; Ovalocytes 1+; Platelet Count 157 K/uL (130-400); Polychromasia 1+; RDW Standard Deviation 44.8 fL (36.4-46.3); Red Blood Count 3.98 M/uL (4.7-6.1); White Blood Count 3.96 K/uL (4.8-10.8)
[2020-07-07 17:54] LABS: Albumin Globulin Ratio 1.2 (0.9-2); Alkaline Phosphatase 113 U/L (45-117); Bilirubin,Total 0.4 mg/dl (0.2-1); Total Protein 6.7 gm/dl (6.4-8.2); Troponin I < 0.015 ng/ml (0-0.045)
[2020-07-07] MEDS ORDERED: OPTIRAY 320 125ml IV ONE (18:20)
--- NOTE | 2020-07-07 18:54 | CT Scan Report ---
CT angio chest PE protocol CT DOSE: 605.71 mGy.cm HISTORY: 75 years-old Male with +dd sob ekg chnge. Acute shortness of breath with elevated d-dimer TECHNIQUE: Multiple CTA images of the chest were obtained after the intravenous administration of 116 ml Optiray 320. Coronal and sagittal MIPS were obtained from the axial data set and were submitted for review. All measurements were obtained according to NASCET criteria. A dose lowering technique w as utilized adhering to the principles of ALARA. COMPARISON: Chest radiograph of same day, CTA chest 09/02/2018 FINDINGS: CTA: Cardiomegaly. Prior median sternotomy and CABG. Multifocal. Narrowing dilation of the [place] coronary arteries appear mild dilation of the ascending thoracic aorta measuring 4.0 x 4.0 cm is unchanged. N o dissection or mediastinal hematoma. There is mild kinking of the subclavian arteries. The pulmonary artery is opacified to the level of the subsegmental branches and demonstrates no filling defects to suggest thromboembolic disease. CT CHEST: Diminutive thyroid. No adenopathy. No pneumothorax, pleural effusion or overt pulmonary edema. Minima l subpleural reticular opacities of the right lung base suggestive of atelectasis/scarring. Minimal t raction bronchiectasis of the basal right lower lobe. Central airways are patent. Mild right hemidiap hragmatic elevation. No acute process of the imaged upper abdomen. Unremarkable soft tissues. Degener ative changes of the shoulders and spine. No acute fracture. Chondrocalcinosis with calcified bodies of the bilateral glenohumeral joints. Healed remote rib fractures are noted bilaterally. Moderate atr ophy of the rotator cuff muscles suggestive chronic rotator cuff tearing. IMPRESSION: 1. No acute intrathoracic abnormality, specifically there is no evidence of pulmonary thromboembolic disease. 2. Cardiomegaly with prior median sternotomy and CABG. 3. Unchanged fusiform dilation of the ascending thoracic aorta, 4.0 x 4.0 cm. 4. Additional findings as above. ACT 112: Negative or not required by law. The above report was generated using voice recognition software. It may contain grammatical, syntax o r spelling errors. Electronically signed by: Barry Stewart M.D. 07/07/2020 6:52 PM
[2020-07-07] MEDS ORDERED: SODIUM CHLORIDE 0.9% 250 ML IV PRN (19:03)
--- NOTE | 2020-07-07 20:59 | History & Physical Report ---
Date of Service July 07, 2020 Assessment & Plan (1) Symptomatic anemia: (2) MUSTAFA (dyspnea on exertion): GI bleed Present on admission with weakness, low energy and SOB Positive heme stool Hgb on admission 7.2, hgb on 04/11 was 9.5 Will transfused 1 unit prbc, consent signed Will hold aspirin Will consult GI for possible scope in am Will make NPO after midnight Continue monitor H/H Will check iron study before blood transfusion Will add PPI BID IV Abnormal EKG Possible related to the low hgb EKG showed ST depressions in the lateral leads as well as V4 V5 and V6 Troponin negative Denies any chest pain Will consult cardio Will hold aspirin due to GI bleed Continue atorvastatin Will trend troponin and repeat EKG in am Elevated D-Dimer CTA chest showed no evidence of PE Diabetes type 2 Will check hbA1c in am Will hold metformin Will start on Novolog sliding scale Continue monitor BS BPH Continue Flomax Parkinson disease: Followed by Neuro at [facility]. Stable Dementia Continue donepezil and amantadine. Recurrent cellulitis: History of recurrent cellulitis of lower extremities. 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 DVT prophylaxis: On SCD due to GI bleed CODE STATUS FULL CODE History of Present Illness Chief Complaint: Weakness/ worsening SOB Primary Care Provider: Michael Hinton MD 75 yo male with PMH of HTN, BPH, DM type 2, Parkinsonism, CAD s/p CABG, Dementia, FABIANO, seborrheic dermatitis, dyslipidemia was sent from PCP office for abnormal EKG. patient was seen today at his PCP office for increased shortness of breath and weakness. Patient said that symptom has been going on for the last 2 weeks. He said that he felt very weak with minimal exertion. He said that he feels weak with low energy. He has been having dizziness with ambulation and gait is unsteady. notices his skin color his pale. Patient said he has been having dark stools for the last few days most recent episode today. Guaiac done in the ER was positive. Denies any chest pain, palpitation, fever, nausea and vomiting. Patient said that he had a colonoscopy done many years ago. Hemoglobin done on admission 7.2. Allergies Allergy/AdvReac Type Severity Reaction Status Date / Time YONATAN Inhibitors AdvReac Mild Cough Verified 07/07/20 18:03 Home Medications Home Medications Medication Instructions Recorded Confirmed Type aspirin [Aspir-81] 81 mg PO QAM 09/02/18 07/07/20 History atorvastatin 40 mg PO QAM 09/02/18 07/07/20 History donepezil 5 mg tablet 5 mg PO QAM tab 07/11/19 07/07/20 History tamsulosin 0.4 mg PO HS #90 cap 12/11/19 07/07/20 Rx cephalexin 500 mg capsule 500 mg PO BID #60 cap 03/05/20 07/07/20 Rx escitalopram oxalate 20 mg tablet 20 mg PO QAM #90 tab 03/05/20 07/07/20 Rx metformin 500 mg tablet,extended 500 mg PO QAM tab 03/05/20 07/07/20 History release 24 hr triamterene 37.5 1 tab PO DAILY #90 tab 03/05/20 07/07/20 Rx mg-hydrochlorothiazide 25 mg tablet amantadine HCl 100 mg capsule 100 mg PO BID 05/22/20 07/07/20 History Past Med/Surg History Medical History Anxiety Arthritis Atrial ectopy BPH (benign prostatic hyperplasia) Carpal tunnel syndrome Cataracts, bilateral Coronary aneurysm (2011) Dementia Diabetes Diabetes mellitus type 2 with complications Edema of both legs HTN (hypertension) Orthostatic hypotension (07/2019) Recurrent cellulitis of lower extremity Sensorineural hearing loss (SNHL) Sensorineural hearing loss (SNHL) of both ears Sepsis due to group B Streptococcus (2017) Surgical History H/O eye surgery H/O foot surgery History of right hip replacement S/P CABG (coronary artery bypass graft) (2011) CHILDS, "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 S/P triple vessel bypass S/P wrist surgery Family History Unknown Heart disease Denies family history of Prostate cancer Social History Smoking Status: Never smoker Do You Dip or Chew Tobacco: No; Hx Alcohol Use: No Hx Substance Use: Yes Last Used Substance Other:: did not ask when last used Substance Use Type Other:: had medical marijuana card Preferred Language: Macedonian Communication Ability: Effective Building Cleaner Required: No Beliefs That Will Affect Care: None marital status: Current Living Situation: Spouse Feels Safe at Home: Yes Review of Systems Review of Systems: All systems reviewed & are unremarkable except as noted in HPI & below Physical Exam Physical Exam: General- No acute distress Head- atraumatic Eyes- PERRL, EOMI, ENT- oropharynx clear Neck- supple, no JVD Lungs- clear to auscultation Heart- regular rhythm; no murmur Abdomen- normal bowel sounds, soft, nontender Extremities- no calf tenderness Neuro- alert, oriented x 3; PERRL, EOMI; no facial palsy; no dysarthria Skin- warm & dry, seborrheic dermatitis Results & Data Results & Data ([facility]) Vital Signs (Past 12 Hours) Vital Signs Temp Pulse Pulse Resp BP BP Pulse Ox 07/07/20 20:44 36.9 C 78 23 157/79 H 99 07/07/20 19:30 76 25 H 175/75 H 100 07/07/20 19:00 91 H 24 160/75 H 98 07/07/20 18:00 74 25 H 149/70 H 98 07/07/20 17:41 77 77 22 146/67 H 97 07/07/20 16:58 36.9 C 86 18 148/[address] H [address] angio chest PE protocol CT DOSE: 605.71 mGy.cm HISTORY: 75 years-old Male with +dd sob ekg chnge. Acute shortness of breath with elevated d-dimer TECHNIQUE: Multiple CTA images of the chest were obtained after the intravenous administration of 116 ml Optiray 320. Coronal and sagittal MIPS were obtained from the axial data set and were submitted for review. All measurements were obtained according to NASCET criteria. A dose lowering technique was utilized adhering to the principles of ALARA. COMPARISON: Chest radiograph of same day, CTA chest 09/02/2018 FINDINGS: CTA: Cardiomegaly. Prior median sternotomy and CABG. Multifocal. Narrowing dilation of the [place] coronary arteries appear mild dilation of the ascending thoracic aorta measuring 4.0 x 4.0 cm is unchanged. No dissection or mediastinal hematoma. There is mild kinking of the subclavian arteries. The pulmonary artery is opacified to the level of the subsegmental branches and demonstrates no filling defects to suggest thromboembolic disease. CT CHEST: Diminutive thyroid. No adenopathy. No pneumothorax, pleural effusion or overt pulmonary edema. Minimal subpleural reticular opacities of the right lung base suggestive of atelectasis/scarring. Minimal traction bronchiectasis of the basal right lower lobe. Central airways are patent. Mild right hemidiaphragmatic elevation. No acute process of the imaged upper abdomen. Unremarkable soft tissues. Degenerative changes of the shoulders and spine. No acute fracture. Chondrocalcinosis with calcified bodies of the bilateral glenohumeral joints. Healed remote rib fractures are noted bilaterally. Moderate atrophy of the rotator cuff muscles suggestive chronic rotator cuff tearing. IMPRESSION: 1. No acute intrathoracic abnormality, specifically there is no evidence of pulmonary thromboembolic disease. 2. Cardiomegaly with prior median sternotomy and CABG. 3. Unchanged fusiform dilation of the ascending thoracic aorta, 4.0 x 4.0 cm. 4. Additional findings as above. ACT 112: Negative or not required by law. The above report was generated using voice recognition software. It may contain grammatical, syntax or spelling errors. Electronically signed by: Barry Stewart M.D. 07/07/2020 6:52 PM Dictated: 07/07/[id number] Transcribed: 07/07/201843 XR chest 1V portable HISTORY: Atypical chest pain. Shortness of breath. COMPARISON: Chest 12/09/2019. FINDINGS: No pneumothorax. No pleural effusions. The cardiac silhouette remains mildly enlarged. Rotated study. No evidence for pulmonary edema. No focal lung consolidations to suggest pneumonia. There are poststernotomy changes. Old, healed left-sided rib fractures. IMPRESSION: No significant change compared to the prior study. No acute process. Stable mild cardiomegaly. ACT 112: Negative or not required by law. Electronically signed by: José Miguel Rock M.D. 07/07/2020 5:46 PM Dictated: 07/07/20 174 Transcribed: 07/07/[id number]
[2020-07-07 22:07] LABS: Ferritin 5.5 ng/ml (8-388)
[2020-07-07 23:33] LABS: Blood Urea Nitrogen 27 mg/dl (7-18); Carbon Dioxide 27 mmol/L (21-32); Chloride 106 mmol/L (98-107); Creatinine Clr Calc Pharmacy 50.6 ml/min; Est GFR (African American) 63.8; Glucose Fasting 108 mg/dl (70-99); Potassium 3.5 mmol/L (3.5-5.1); Sodium 140 mmol/L (136-145)
[2020-07-07 23:37] LABS: Troponin I < 0.015 ng/ml (0-0.045)
[2020-07-08] MEDS: TAMSULOSIN HCL 0.4 MG CAP PO SCH ×2 (00:04→21:24)
[2020-07-08] MEDS: AMANTADINE HCL 100 MG CAPSULE PO SCH ×2 (00:04→08:02)
[2020-07-08] MEDS: cephALEXin 500 MG CAP PO SCH ×3 (00:04→21:24)
[2020-07-08] MEDS ORDERED: GLUCOSE 10 TABS/TUBE PO PRN (01:07)
[2020-07-08] MEDS ORDERED: GLUCAGON FOR INJ 1 MG VIAL SQ PRN (01:07)
[2020-07-08] MEDS ORDERED: GLUCOSE 40% GEL 15 GM TUBE PO PRN (01:07)
[2020-07-08] MEDS ORDERED: CARBOHYDRATES FOR HYPOGLYCEMIA PO PRN (01:07)
[2020-07-08] MEDS ORDERED: DEXTROSE 50% 50 ML SYRINGE IV PRN (01:07)
[2020-07-08] MEDS ORDERED: Nursing to Pharmacy Communication SCH ×2 (01:30→13:45)
[2020-07-08] MEDS: PANTOprazole 40 MG in SYRINGE 0 ML IV SCH ×2 (01:44→08:06)
[2020-07-08 06:09] LABS: Estimated Average Glucose 137 mg/dl; Hemoglobin A1C 6.4 % (4.5-5.6)
[2020-07-08 06:12] LABS: Hematocrit (blood only) 27.5 % (42-52); Hemoglobin 7.7 g/dL (14.0-18.0); Mean Corpuscular Hemoglobin 18.5 pg (25-34); Mean Corpuscular Volume 66.1 fL (80-100); Mean Platelet Volume 8.5 fL (7.4-10.4); Platelet Count 165 K/uL (130-400); RDW Standard Deviation 48.6 fL (36.4-46.3); Red Blood Count 4.16 M/uL (4.7-6.1); White Blood Count 4.35 K/uL (4.8-10.8)
[2020-07-08] MEDS: INSULIN ASPART 100 UNITS/ML 3 ML PEN SC SCH ×4 (06:20→21:29)
[2020-07-08 06:26] LABS: BUN Creatinine Ratio 20.8 (10-20); Blood Urea Nitrogen 26 mg/dl (7-18); Calcium 9.2 mg/dl (8.5-10.1); Carbon Dioxide 29 mmol/L (21-32); Chloride 108 mmol/L (98-107); Est GFR (African American) 64.4; Est GFR (Non-African American) 55.6; Glucose 106 mg/dl (70-99); Lipase 285 U/L (73-393); Potassium 3.6 mmol/L (3.5-5.1); Sodium 143 mmol/L (136-145)
[2020-07-08 06:31] LABS: Troponin I < 0.015 ng/ml (0-0.045)
[2020-07-08] MEDS ORDERED: INSULIN ASPART 100 UNITS/ML 3 ML PEN SC SCH (07:30)
[2020-07-08] MEDS: DONEPEZIL HCL 5 MG TAB PO SCH (08:02)
[2020-07-08] MEDS: ESCITALOPRAM OXALATE 20 MG TAB PO SCH (08:02)
[2020-07-08] MEDS: ATORVASTATIN 40 MG TAB PO SCH (08:02)
--- NOTE | 2020-07-08 09:48 | Gastrointestinal Consultation ---
Date of Consultation July 08, 2020 Assessment & Plan (1) Symptomatic anemia: 75 year old male admitted w/ symptomatic anemia, dark stools x 3/4 weeks, has not had EGD, colon in 2004 and 2014 unremarkable NPO EGD If EGD negative, will need OP colonoscopy Trend HGB Monitor and document all stools Transfuse PRN Will hold ASA Will add PPI BID IV Thank you for allowing us to participate in the care of this patient. Please call with any acute changes, questions or concerns. Please see addendum below with additional recommendation from my supervising physician. Supervising Physician Co-Signing Physician Notes I have personally seen and examined the patient with HALLIE Thompson. Her note reflects my exam and findings. I agree with her impression and plan. Pt on ASA with dark stools. Given risk factors and presentation, and after seeing patient, we will arrange an upper endoscopy to look for high risk bleeding site. Francis Perez M.D. History of Present Illness Reason for Consultation: anemia, dark stools Requesting Physician: Chandrakant Attending Physician: Keo Stallings MD History of Present Illness 75 year old male with history of PD, dementia, CAD, dyslipidemia, T2DM who presents w/ progressive SOB, fatigue and report of dark, tarry stools x 2/3 weeks. Pt was seen and evaluated, poor historian. Suggests that for the past month noted change in BM w/ very dark stools and black stools twice daily. No BRBPR. No upper abd pain. No nausea/vomiting. No GERD. No dysphagia. No weight loss. No fever, chills, CP, SOB HGB 7.7. In March was 9. Last year was not anemic. Colonoscopy 2004: unremarkable Colonoscopy 2014: unremarkable Allergies Allergy/AdvReac Type Severity Reaction Status Date / Time YONATAN Inhibitors AdvReac Mild Cough Verified 07/07/20 18:03 Home Medications Home Medications Medication Instructions Recorded Confirmed Type aspirin [Aspir-81] 81 mg PO QAM 09/02/18 07/07/20 History atorvastatin 40 mg PO QAM 09/02/18 07/07/20 History donepezil 5 mg tablet 5 mg PO QAM tab 07/11/19 07/07/20 History tamsulosin 0.4 mg PO HS #90 cap 12/11/19 07/07/20 Rx cephalexin 500 mg capsule 500 mg PO BID #60 cap 03/05/20 07/07/20 Rx escitalopram oxalate 20 mg tablet 20 mg PO QAM #90 tab 03/05/20 07/07/20 Rx metformin 500 mg tablet,extended 500 mg PO QAM tab 03/05/20 07/07/20 History release 24 hr triamterene 37.5 1 tab PO DAILY #90 tab 03/05/20 07/07/20 Rx mg-hydrochlorothiazide 25 mg tablet amantadine HCl 100 mg capsule 100 mg PO BID 05/22/20 07/07/20 History Patient History Medical History Anxiety Arthritis Atrial ectopy BPH (benign prostatic hyperplasia) Carpal tunnel syndrome Cataracts, bilateral Coronary aneurysm (2011) Dementia Diabetes Diabetes mellitus type 2 with complications Edema of both legs HTN (hypertension) Orthostatic hypotension (07/2019) Recurrent cellulitis of lower extremity Sensorineural hearing loss (SNHL) Sensorineural hearing loss (SNHL) of both ears Sepsis due to group B Streptococcus (2017) Surgical History H/O eye surgery H/O foot surgery History of right hip replacement S/P CABG (coronary artery bypass graft) (2011) CHILDS, "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 S/P triple vessel bypass S/P wrist surgery Family History Unknown Heart disease Denies family history of Prostate cancer Social History Smoking Status: Never smoker Do You Dip or Chew Tobacco: No; Hx Alcohol Use: No Hx Substance Use: Yes Last Used Substance Other:: did not ask when last used Substance Use Type Other:: had medical marijuana card Preferred Language: [place] Communication Ability: Effective Plywood Matcher Required: No Beliefs That Will Affect Care: None marital status: Current Living Situation: Spouse Feels Safe at Home: Yes Review of Systems Constitutional: no fever and no chills Respiratory: no cough and no dyspnea Cardiovascular: no chest pain and no dyspnea Gastrointestinal: + melena; no abdominal pain Physical Exam Constitutional: well nourished Neck: trachea midline Gastrointestinal (Abdomen): normal bowel sounds, soft, nontender, no hepatosplenomegaly Results & Data ([facility]) Vital Signs (Past 12 Hours) Vital Signs Temp Pulse Pulse Resp BP BP BP 07/08/20 07:38 36.5 C 70 18 182/78 H 07/08/20 04:56 36.8 C 07/08/20 03:40 37.6 C H 72 20 124/65 07/08/20 00:00 66 07/07/20 23:55 154/78 H 07/07/20 22:35 36.6 C 71 18 188/76 H 07/07/20 22:01 69 25 H 169/83 H 07/07/20 22:00 82 23 07/07/20 21:47 37.1 C 83 24 169/83 H Pulse Ox 07/08/20 07:38 97 07/08/20 04:56 07/08/20 03:40 97 07/08/20 00:00 07/07/20 23:55 07/07/20 22:35 99 07/07/20 22:01 99 07/07/20 22:00 99 07/07/20 21:47 99 Laboratory Results 07/08/20 07/08/20 07/08/20 Range/Units 05:37 05:25 05:25 WBC (4.8-10.8) K/uL RBC (4.7-6.1) M/uL Hgb (14.0-18.0) g/dL Hct (42-52) % MCV (80-100) fL MCH (25-34) pg MCHC (32-36) g/dL RDW Std Deviation (36.4-46.3) fL RDW Coeff of Anny (11.5-14.5) % Plt Count (130-400) K/uL MPV (7.4-10.4) fL Immature Gran % (Auto) % Neut % (Auto) % Lymph % (Auto) % [place] % (Auto) % Eos % (Auto) % Baso % (Auto) % Neut # (Auto) (1.4-6.5) K/uL Lymph # (Auto) (1.2-3.4) K/uL Mesa # (Auto) (0.11-0.59) K/uL Eos # (Auto) (0-0.5) K/uL Baso # (Auto) (0-0.2) K/uL Immature Gran # (Auto) (0.00-0.02) K/uL Polychromasia Hypochromasia Microcytosis Ovalocytes PT (9.0-12.0) Seconds INR (0.9-1.1) APTT (21.0-31.0) Seconds PTT Ratio D-Dimer (0-500) ug/L FEU Sodium 143 (136-145) mmol/L Potassium 3.6 (3.5-5.1) mmol/L Chloride 108 H (98-107) mmol/L Carbon Dioxide 29 (21-32) mmol/L Anion Gap 6.0 (3-11) BUN 26 H (7-18) mg/dl Creatinine 1.25 (0.6-1.4) mg/dl Est Cr Clr Drug Dosing 51.0 ml/min Est GFR ( Amer) 64.4 Est GFR (Non-Af Amer) 55.6 BUN/Creatinine Ratio 20.8 H (10-20) Glucose 106 H (70-99) mg/dl POC Glucose 126 H (70-99) mg/dl Fasting Glucose (70-99) mg/dl Estimat Average Glucose 137 mg/dl Hemoglobin A1c 6.4 H (4.5-5.6) % Calcium 9.2 (8.5-10.1) mg/dl Iron (35-175) mcg/dl TIBC (250-450) mcg/dl Transferrin (200-360) mg/dl Ferritin (8-388) ng/ml Total Bilirubin (0.2-1) mg/dl AST (15-37) U/L ALT (12-78) U/L Alkaline Phosphatase (45-117) U/L Troponin I < 0.015 (0-0.045) ng/ml Total Protein (6.4-8.2) gm/dl Albumin (3.4-5.0) gm/dl Globulin (2.5-4.0) gm/dl Albumin/Globulin Ratio (0.9-2) Lipase 285 (73-393) U/L Blood Type Antibody Screen Crossmatch 07/08/20 07/07/20 07/07/20 Range/Units 05:25 23:04 19:19 WBC 4.35 L (4.8-10.8) K/uL RBC 4.16 L (4.7-6.1) M/uL Hgb 7.7 L (14.0-18.0) g/dL Hct 27.5 L (42-52) % MCV 66.1 L (80-100) fL MCH 18.5 L (25-34) pg MCHC 28.0 L (32-36) g/dL RDW Std Deviation 48.6 H (36.4-46.3) fL RDW Coeff of Anny 20.0 H (11.5-14.5) % Plt Count 165 (130-400) K/uL MPV 8.5 (7.4-10.4) fL Immature Gran % (Auto) % Neut % (Auto) % Lymph % (Auto) % Mesa % (Auto) % Eos % (Auto) % Baso % (Auto) % Neut # (Auto) (1.4-6.5) K/uL Lymph # (Auto) (1.2-3.4) K/uL Mesa # (Auto) (0.11-0.59) K/uL Eos # (Auto) (0-0.5) K/uL Baso # (Auto) (0-0.2) K/uL Immature Gran # (Auto) (0.00-0.02) K/uL Polychromasia Hypochromasia Microcytosis Ovalocytes PT (9.0-12.0) Seconds INR (0.9-1.1) APTT (21.0-31.0) Seconds PTT Ratio D-Dimer (0-500) ug/L FEU Sodium 140 (136-145) mmol/L Potassium 3.5 (3.5-5.1) mmol/L Chloride 106 (98-107) mmol/L Carbon Dioxide 27 (21-32) mmol/L Anion Gap 7.0 (3-11) BUN 27 H (7-18) mg/dl Creatinine 1.26 (0.6-1.4) mg/dl Est Cr Clr Drug Dosing 50.6 ml/min Est GFR ( Amer) 63.8 Est GFR (Non-Af Amer) 55.0 BUN/Creatinine Ratio (10-20) Glucose (70-99) mg/dl POC Glucose (70-99) mg/dl Fasting Glucose 108 H (70-99) mg/dl Estimat Average Glucose mg/dl Hemoglobin A1c (4.5-5.6) % Calcium 9.0 (8.5-10.1) mg/dl Iron (35-175) mcg/dl TIBC (250-450) mcg/dl Transferrin (200-360) mg/dl Ferritin (8-388) ng/ml Total Bilirubin (0.2-1) mg/dl AST (15-37) U/L ALT (12-78) U/L Alkaline Phosphatase (45-117) U/L Troponin I < 0.015 (0-0.045) ng/ml Total Protein (6.4-8.2) gm/dl Albumin (3.4-5.0) gm/dl Globulin (2.5-4.0) gm/dl Albumin/Globulin Ratio (0.9-2) Lipase (73-393) U/L Blood Type A Positive Antibody Screen NEGATIVE Crossmatch See Detail 07/07/20 07/07/20 07/07/20 Range/Units 17:13 17:13 17:13 WBC (4.8-10.8) K/uL RBC (4.7-6.1) M/uL Hgb (14.0-18.0) g/dL Hct (42-52) % MCV (80-100) fL MCH (25-34) pg MCHC (32-36) g/dL RDW Std Deviation (36.4-46.3) fL RDW Coeff of Anny (11.5-14.5) % Plt Count (130-400) K/uL MPV (7.4-10.4) fL Immature Gran % (Auto) % Neut % (Auto) % Lymph % (Auto) % Mes[place] % (Auto) % Eos % (Auto) % Baso % (Auto) % Neut # (Auto) (1.4-6.5) K/uL Lymph # (Auto) (1.2-3.4) K/uL Mes[place] # (Auto) (0.11-0.59) K/uL Eos # (Auto) (0-0.5) K/uL Baso # (Auto) (0-0.2) K/uL Immature Gran # (Auto) (0.00-0.02) K/uL Polychromasia Hypochromasia Microcytosis Ovalocytes PT 11.2 (9.0-12.0) Seconds INR 1.1 (0.9-1.1) APTT 22.8 (21.0-31.0) Seconds PTT Ratio 0.8 D-Dimer 540 H* (0-500) ug/L FEU Sodium 141 (136-145) mmol/L Potassium 3.4 L (3.5-5.1) mmol/L Chloride 106 (98-107) mmol/L Carbon Dioxide 27 (21-32) mmol/L Anion Gap 8.0 (3-11) BUN 31 H (7-18) mg/dl Creatinine 1.50 H (0.6-1.4) mg/dl Est Cr Clr Drug Dosing 42.5 ml/min Est GFR ( Amer) 51.7 Est GFR (Non-Af Amer) 44.6 BUN/Creatinine Ratio 20.5 H (10-20) Glucose 157 H (70-99) mg/dl POC Glucose (70-99) mg/dl Fasting Glucose (70-99) mg/dl Estimat Average Glucose mg/dl Hemoglobin A1c (4.5-5.6) % Calcium 9.2 (8.5-10.1) mg/dl Iron 10 L (35-175) mcg/dl TIBC 464 H (250-450) mcg/dl Transferrin 388 H (200-360) mg/dl Ferritin 5.5 L (8-388) ng/ml Total Bilirubin 0.4 (0.2-1) mg/dl AST 15 (15-37) U/L ALT 20 (12-78) U/L Alkaline Phosphatase 113 (45-117) U/L Troponin I < 0.015 (0-0.045) ng/ml Total Protein 6.7 (6.4-8.2) gm/dl Albumin 3.7 (3.4-5.0) gm/dl Globulin 3.0 (2.5-4.0) gm/dl Albumin/Globulin Ratio 1.2 (0.9-2) Lipase 456 H (73-393) U/L Blood Type Antibody Screen Crossmatch 07/07/20 Range/Units 17:13 WBC 3.96 L (4.8-10.8) K/uL RBC 3.98 L (4.7-6.1) M/uL Hgb 7.2 L (14.0-18.0) g/dL Hct 25.5 L (42-52) % MCV 64.1 L (80-100) fL MCH 18.1 L (25-34) pg MCHC 28.2 L (32-36) g/dL RDW Std Deviation 44.8 (36.4-46.3) fL RDW Coeff of Anny 19.0 H (11.5-14.5) % Plt Count 157 (130-400) K/uL MPV 8.5 (7.4-10.4) fL Immature Gran % (Auto) 0.3 % Neut % (Auto) 71.1 % Lymph % (Auto) 18.9 % [place] % (Auto) 8.1 % Eos % (Auto) 1.3 % Baso % (Auto) 0.3 % Neut # (Auto) 2.82 (1.4-6.5) K/uL Lymph # (Auto) 0.75 L (1.2-3.4) K/uL [place] # (Auto) 0.32 (0.11-0.59) K/uL Eos # (Auto) 0.05 (0-0.5) K/uL Baso # (Auto) 0.01 (0-0.2) K/uL Immature Gran # (Auto) 0.01 (0.00-0.02) K/uL Polychromasia 1+ Hypochromasia Present Microcytosis Present Ovalocytes 1+ PT (9.0-12.0) Seconds INR (0.9-1.1) APTT (21.0-31.0) Seconds PTT Ratio D-Dimer (0-500) ug/L FEU Sodium (136-145) mmol/L Potassium (3.5-5.1) mmol/L Chloride (98-107) mmol/L Carbon Dioxide (21-32) mmol/L Anion Gap (3-11) BUN (7-18) mg/dl Creatinine (0.6-1.4) mg/dl Est Cr Clr Drug Dosing ml/min Est GFR ( Amer) Est GFR (Non-Af Amer) BUN/Creatinine Ratio (10-20) Glucose (70-99) mg/dl POC Glucose (70-99) mg/dl Fasting Glucose (70-99) mg/dl Estimat Average Glucose mg/dl Hemoglobin A1c (4.5-5.6) % Calcium (8.5-10.1) mg/dl Iron (35-175) mcg/dl TIBC (250-450) mcg/dl Transferrin (200-360) mg/dl Ferritin (8-388) ng/ml Total Bilirubin (0.2-1) mg/dl AST (15-37) U/L ALT (12-78) U/L Alkaline Phosphatase (45-117) U/L Troponin I (0-0.045) ng/ml Total Protein (6.4-8.2) gm/dl Albumin (3.4-5.0) gm/dl Globulin (2.5-4.0) gm/dl Albumin/Globulin Ratio (0.9-2) Lipase (73-393) U/L Blood Type Antibody Screen Crossmatch
--- NOTE | 2020-07-08 10:19 | Cardiology Consultation ---
Date of Consultation July 08, 2020 Assessment & Plan (1) Symptomatic anemia: Mr. 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 Patient presented with exertional dyspnea, fatigue, and lightheadedness over the preceding 2 weeks secondary to an Acute Blood Loss Anemia and an Acute GI Bleed. An EKG 07/07/2020 revealed an incomplete RBBB with left axis deviation and nonspecific ST and T wave abnormalities. Despite his non-specific ST and T wave abnormalities -- patient has NOT had any anginal symptoms and his Troponin I level is < 0.015 ng/ml x 3. This is NOT an acute coronary syndrome or an acute cardiac process. Recommend the following: -- Proceed with EGD. -- Recommend repleting his Hgb to > 9.0 gm/dl. -- Continue to hold Aspirin until source of GI blood loss identified and treated. (2) Acute GI bleeding: -- As outlined above. (3) Abnormal ECG: -- Despite his non-specific ST and T wave abnormalities -- patient has NOT had any anginal symptoms and his Troponin I level is < 0.015 ng/ml x 3. -- This is NOT an acute coronary syndrome or an acute cardiac process. -- Continue Atorvastatin 40 mg daily. -- Resume Aspirin when hemostasis allows and after source of GI blood loss identified and treated. -- Consider adding a Beta Sheldon due to CAD and hypertension. (4) CAD (coronary artery disease): -- As outlined above. History of Present Illness Reason for Consultation: -- Abnormal EKG. 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 Requesting Physician: Keo Stallings MD Attending Physician: Tonio Ernandez MD History of Present Illness Mr. 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 Patient presented to his PCPs office yesterday complaining of exertional dyspnea, fatigue, and lightheadedness over the preceding 2 weeks. Patient was noted to have melanotic stool that was heme-positive in PCP's office. An EKG was done at his PCP's office, and this revealed an incomplete RBBB with left axis deviation and nonspecific ST and T wave abnormalities. Due to this EKG change and his presenting symptoms he was referred to the ER for further evaluation. Patient is noted to be markedly anemic on admission with a hemoglobin of 7.2 g/dl. He will undergo an EGD later today. Despite his non-specific ST and T wave abnormalities -- Troponin I level is < 0.015 ng/ml x 3 and the patient has not had any anginal symptoms. He specifically denies any chest heaviness, tightness, pressure, pain, or discomfort. He denies any neck, jaw, back, shoulder, or arm pain. He denies any shortness of breath at rest, orthopnea, or any PND. He denies any syncope. He denies any nausea, vomiting, or diaphoresis. Patient has not had any hypotensive BP readings - to the contrary his BP's have been hypertensive throughout this hospitalization. His Aspirin has been held due to the GI bleed. He received 1 unit of PRBC's and his Hgb is now up to 7.7 g/dl. Patient had a SRIKANTH on 04/22/2020 showing: -- Normal LV size, wall motion, and systolic function. -- MVP with prolapse of the posterior mitral leaflet. -- Moderate mitral regurgitation with an eccentric anteriorly directed MR jet that filled < 1/4 of his non-dilated left atrium. -- Mild AI. Allergies Allergy/AdvReac Type Severity Reaction Status Date / Time YONATAN Inhibitors AdvReac Mild Cough Verified 07/07/20 18:03 Home Medications Home Medications Medication Instructions Recorded Confirmed Type aspirin [Aspir-81] 81 mg PO QAM 09/02/18 07/07/20 History atorvastatin 40 mg PO QAM 09/02/18 07/07/20 History donepezil 5 mg tablet 5 mg PO QAM tab 07/11/19 07/07/20 History tamsulosin 0.4 mg PO HS #90 cap 12/11/19 07/07/20 Rx cephalexin 500 mg capsule 500 mg PO BID #60 cap 03/05/20 07/07/20 Rx escitalopram oxalate 20 mg tablet 20 mg PO QAM #90 tab 03/05/20 07/07/20 Rx metformin 500 mg tablet,extended 500 mg PO QAM tab 03/05/20 07/07/20 History release 24 hr triamterene 37.5 1 tab PO DAILY #90 tab 03/05/20 07/07/20 Rx mg-hydrochlorothiazide 25 mg tablet amantadine HCl 100 mg capsule 100 mg PO BID 05/22/20 07/07/20 History Patient History Medical History Anxiety Arthritis Atrial ectopy BPH (benign prostatic hyperplasia) Carpal tunnel syndrome Cataracts, bilateral Coronary aneurysm (2011) Dementia Diabetes Diabetes mellitus type 2 with complications Edema of both legs HTN (hypertension) Orthostatic hypotension (07/2019) Recurrent cellulitis of lower extremity Sensorineural hearing loss (SNHL) Sensorineural hearing loss (SNHL) of both ears Sepsis due to group B Streptococcus (2017) Surgical History H/O eye surgery H/O foot surgery History of right hip replacement S/P CABG (coronary artery bypass graft) (2011) CHILDS, "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 S/P triple vessel bypass S/P wrist surgery Family History Unknown Heart disease Denies family history of Prostate cancer Social History Smoking Status: Never smoker Do You Dip or Chew Tobacco: No; Hx Alcohol Use: No Hx Substance Use: Yes Last Used Substance Other:: did not ask when last used Substance Use Type Other:: had medical marijuana card Preferred Language: Bengali Communication Ability: Effective Pre Kindergarten Teacher Required: No Beliefs That Will Affect Care: None marital status: Current Living Situation: Spouse Feels Safe at Home: Yes Physical Exam Physical Exam: GENERAL: Pale appearing but patient is in no acute distress. HEENT: Head is atraumatic, normocephalic. EOM's intact. Ptosis of right eyelid. No perioral cyanosis. NECK: No JVD. JVP is at the level of the clavicle sitting upright. Carotid upstrokes are + 2 bilaterally. No bruits are noted. CHEST/LUNGS: Clear to auscultation throughout all lung ching. No wheezes, rales, or crackles. CVS: S1 and S2 are regular with a grade 3/6 holosystolic murmur at the left sternal border, radiates to the apex. No obvious diastolic murmurs. No gallops or rubs. PMI is nondisplaced. No lifts, heaves, or thrills. No abdominal aortic or renal bruits. ABDOMINAL EXAM: Bowel sounds are present. No masses, organomegaly, or tenderness. EXTREMITIES: No clubbing or cyanosis. Trace to +1 pretibial edema bilaterally. Intact radial pulses bilaterally. NEUROLOGIC EXAM: Patient is awake, alert, and interactive. Pleasant and cooperative. Answers questions appropriately. Speech is clear. TELEMETRY: -- NSR with PAC's with HR in the 60 to 80 bpm range. EKG 07/08/2020: -- Sinus rhythm with marked sinus arrhythmia. -- Left axis deviation. -- Pulmonary disease pattern. -- Incomplete RBBB. -- Nonspecific ST and T wave abnormality. Results & Data ([facility]) Vital Signs (Past 12 Hours) Vital Signs Temp Pulse Pulse Resp BP BP Pulse Ox 07/08/20 07:38 36.5 C 70 18 182/78 H 97 07/08/20 04:56 36.8 C 07/08/20 03:40 37.6 C H 72 20 124/65 97 07/08/20 00:00 66 07/07/20 23:55 154/78 H 07/07/20 22:35 36.6 C 71 18 188/76 H 99 Laboratory Results Laboratory Results - last 24 hr 07/07/20 07/07/20 07/07/20 17:13 17:13 17:13 WBC 3.96 L RBC 3.98 L Hgb 7.2 L Hct 25.5 L MCV 64.1 L MCH 18.1 L MCHC 28.2 L RDW Std Deviation 44.8 RDW Coeff of Anny 19.0 H Plt Count 157 MPV 8.5 Immature Gran % (Auto) 0.3 Neut % (Auto) 71.1 Lymph % (Auto) 18.9 Mckean % (Auto) 8.1 Eos % (Auto) 1.3 Baso % (Auto) 0.3 Neut # (Auto) 2.82 Lymph # (Auto) 0.75 L Mckean # (Auto) 0.32 Eos # (Auto) 0.05 Baso # (Auto) 0.01 Immature Gran # (Auto) 0.01 Polychromasia 1+ Hypochromasia Present Microcytosis Present Ovalocytes 1+ PT 11.2 INR 1.1 APTT 22.8 PTT Ratio 0.8 D-Dimer 540 H* Sodium 141 Potassium 3.4 L Chloride 106 Carbon Dioxide 27 Anion Gap 8.0 BUN 31 H Creatinine 1.50 H Est Cr Clr Drug Dosing 42.5 Est GFR ( Amer) 51.7 Est GFR (Non-Af Amer) 44.6 BUN/Creatinine Ratio 20.5 H Glucose 157 H POC Glucose Fasting Glucose Estimat Average Glucose Hemoglobin A1c Calcium 9.2 Iron TIBC Transferrin Ferritin Total Bilirubin 0.4 AST 15 ALT 20 Alkaline Phosphatase 113 Troponin I < 0.015 Total Protein 6.7 Albumin 3.7 Globulin 3.0 Albumin/Globulin Ratio 1.2 Lipase 456 H COVID-19 Eval Order SARS-CoV-2, RNA, NAAT Blood Type Antibody Screen Crossmatch 07/07/20 07/07/20 07/07/20 17:13 19:19 23:04 WBC RBC Hgb Hct MCV MCH MCHC RDW Std Deviation RDW Coeff of Anny Plt Count MPV Immature Gran % (Auto) Neut % (Auto) Lymph % (Auto) Mckean % (Auto) Eos % (Auto) Baso % (Auto) Neut # (Auto) Lymph # (Auto) Mckean # (Auto) Eos # (Auto) Baso # (Auto) Immature Gran # (Auto) Polychromasia Hypochromasia Microcytosis Ovalocytes PT INR APTT PTT Ratio D-Dimer Sodium 140 Potassium 3.5 Chloride 106 Carbon Dioxide 27 Anion Gap 7.0 BUN 27 H Creatinine 1.26 Est Cr Clr Drug Dosing 50.6 Est GFR ( Amer) 63.8 Est GFR (Non-Af Amer) 55.0 BUN/Creatinine Ratio Glucose POC Glucose Fasting Glucose 108 H Estimat Average Glucose Hemoglobin A1c Calcium 9.0 Iron 10 L TIBC 464 H Transferrin 388 H Ferritin 5.5 L Total Bilirubin AST ALT Alkaline Phosphatase Troponin I < 0.015 Total Protein Albumin Globulin Albumin/Globulin Ratio Lipase COVID-19 Eval Order SARS-CoV-2, RNA, NAAT Blood Type A Positive Antibody Screen NEGATIVE Crossmatch See Detail 07/08/20 07/08/20 07/08/20 05:25 05:25 05:25 WBC 4.35 L RBC 4.16 L Hgb 7.7 L Hct 27.5 L MCV 66.1 L MCH 18.5 L MCHC 28.0 L RDW Std Deviation 48.6 H RDW Coeff of Anny 20.0 H Plt Count 165 MPV 8.5 Immature Gran % (Auto) Neut % (Auto) Lymph % (Auto) Mckean % (Auto) Eos % (Auto) Baso % (Auto) Neut # (Auto) Lymph # (Auto) Mckean # (Auto) Eos # (Auto) Baso # (Auto) Immature Gran # (Auto) Polychromasia Hypochromasia Microcytosis Ovalocytes PT INR APTT PTT Ratio D-Dimer Sodium 143 Potassium 3.6 Chloride 108 H Carbon Dioxide 29 Anion Gap 6.0 BUN 26 H Creatinine 1.25 Est Cr Clr Drug Dosing 51.0 Est GFR ( Amer) 64.4 Est GFR (Non-Af Amer) 55.6 BUN/Creatinine Ratio 20.8 H Glucose 106 H POC Glucose Fasting Glucose Estimat Average Glucose 137 Hemoglobin A1c 6.4 H Calcium 9.2 Iron TIBC Transferrin Ferritin Total Bilirubin AST ALT Alkaline Phosphatase Troponin I < 0.015 Total Protein Albumin Globulin Albumin/Globulin Ratio Lipase 285 COVID-19 Eval Order SARS-CoV-2, RNA, NAAT Blood Type Antibody Screen Crossmatch 07/08/20 07/08/20 07/08/20 05:37 10:20 10:20 WBC RBC Hgb Hct MCV MCH MCHC RDW Std Deviation RDW Coeff of Anny Plt Count MPV Immature Gran % (Auto) Neut % (Auto) Lymph % (Auto) Mckean % (Auto) Eos % (Auto) Baso % (Auto) Neut # (Auto) Lymph # (Auto) Mckean # (Auto) Eos # (Auto) Baso # (Auto) Immature Gran # (Auto) Polychromasia Hypochromasia Microcytosis Ovalocytes PT INR APTT PTT Ratio D-Dimer Sodium Potassium Chloride Carbon Dioxide Anion Gap BUN Creatinine Est Cr Clr Drug Dosing Est GFR ( Amer) Est GFR (Non-Af Amer) BUN/Creatinine Ratio Glucose POC Glucose 126 H Fasting Glucose Estimat Average Glucose Hemoglobin A1c Calcium Iron TIBC Transferrin Ferritin Total Bilirubin AST ALT Alkaline Phosphatase Troponin I Total Protein Albumin Globulin Albumin/Globulin Ratio Lipase COVID-19 Eval Order Covid19 [facility] SARS-CoV-2, RNA, NAAT NEGATIVE Blood Type Antibody Screen Crossmatch Medications Administered Active Medications Generic Name Dose Route Start Last Admin Trade Name Freq PRN Reason Stop Dose Admin Amantadine HCl 100 mg 07/09/20 09:00 Amantadine Hcl 100 Mg Capsule PO 08/08/20 08:59 QAM JEANETH Protocol Atorvastatin Calcium 40 mg 07/08/20 09:00 07/08/20 08:02 Atorvastatin 40 Mg Tab PO 08/07/20 08:59 40 mg QAM JEANETH Administration Cephalexin HCl 500 mg 07/07/20 22:56 07/08/20 08:02 Cephalexin 500 Mg Cap PO 08/06/20 22:55 500 mg BID JEANETH Administration Dextrose 25 - 50 ml 07/08/20 01:07 Dextrose 50% 50 Ml Syringe IV 08/07/20 01:06 UD PRN Hypoglycemia Protocol Protocol Donepezil HCl 5 mg 07/08/20 09:00 07/08/20 08:02 Donepezil Hcl 5 Mg Tab PO 08/07/20 08:59 5 mg QAM JEANETH Administration Escitalopram Oxalate 20 mg 07/08/20 09:00 07/08/20 08:02 Escitalopram Oxalate 20 Mg Tab PO 08/07/20 08:59 20 mg QAM JEANETH Administration Glucagon 1 mg 07/08/20 01:07 Glucagon For Inj 1 Mg Vial SQ 08/07/20 01:06 UD PRN Hypoglycemia Protocol Protocol Glucose 4 - 8 tabs 07/08/20 01:07 Glucose 10 Tabs/Tube PO 08/07/20 01:06 UD PRN Hypoglycemia Protocol Protocol Glucose 15 - 30 gm 07/08/20 01:07 Glucose 40% Gel 15 Gm Tube PO 10/16/20 01:06 UD PRN Hypoglycemia Protocol Protocol Pantoprazole Sodium 40 mg/ 10 mls @ 5 mls/min 07/08/20 01:10 07/08/20 08:06 Syringe IV 08/07/20 01:09 5 mls/min BID JEANETH Administration Insulin Aspart 0 units 07/08/20 06:00 07/08/20 06:20 Insulin Aspart 100 Units/Ml 3 Ml Pen SC 08/07/20 05:59 Not Given Q6 JEANETH Miscellaneous 15 - 30 gm 07/08/20 01:07 Carbohydrates For Hypoglycemia PO 08/07/20 01:06 UD PRN Hypoglycemia Protocol Tamsulosin HCl 0.4 mg 07/07/20 22:56 07/08/20 00:04 Tamsulosin Hcl 0.4 Mg Cap PO 08/06/20 22:55 0.4 mg HS JEANETH Administration PG Care Time/CCT Total # of Minutes Spent Total Time Spent with Patient: Total time spent is greater than 50% in coordination of care (as documented) at patient's floor/unit and/or counseling patient: 50 minutes Coding Level of Care Code 99951 Office/OBS Consult Lvl 3 Diagnoses Symptomatic anemia D64.9 Acute GI bleeding K92.2 Abnormal ECG R94.31 CAD (coronary artery disease) I25.10
--- NOTE | 2020-07-08 12:04 | Anesthesiology Consultation ---
Date of Service July 08, 2020 Assessment & Plan (1) Encounter for pre-operative examination: Chart Review Chart Review: Acceptable Risk for Surgery and Patient NOT seen in Pre Admission Testing Consults Requested none ASA ASA3 Proposed Anesthesia Anesthesia Type: MAC Risk / Benefits Reviewed With: PT / POA / Parent / Guardian, Accepts Plan and I nformed Consent Obtained History Surgery Operation Date: 07/08/20 16:30 Proposed Procedures p Esophagogastroduodenoscopy Dr Chris Perez Height/Weight Height: 5 ft 7 in Weight: 80.1 kg Allergies Allergy/AdvReac Type Severity Reaction Status Date / Time YONATAN Inhibitors AdvReac Mild Cough Verified 07/07/20 18:03 Medications Home Medications Medication Instructions Recorded Confirmed Last Taken aspirin [Aspir-81] 81 mg PO QAM 09/02/18 07/07/20 04/22/20 81 atorvastatin 40 mg PO QAM 09/02/18 07/07/20 04/22/20 40 donepezil 5 mg tablet 5 mg PO QAM tab 07/11/19 07/07/20 04/22/20 5 tamsulosin 0.4 mg PO HS #90 cap 12/11/19 07/07/20 04/21/20 0.4 cephalexin 500 mg capsule 500 mg PO BID #60 cap 03/05/20 07/07/20 04/21/20 500 escitalopram oxalate 20 mg tablet 20 mg PO QAM #90 tab 03/05/20 07/07/20 04/22/20 20 metformin 500 mg tablet,extended 500 mg PO QAM tab 03/05/20 07/07/20 04/22/20 release 24 hr 500 triamterene 37.5 1 tab PO DAILY #90 tab 03/05/20 07/07/20 04/22/20 mg-hydrochlorothiazide 25 mg tablet 37.5 amantadine HCl 100 mg capsule 100 mg PO BID 05/22/20 07/07/20 Unknown Active Medications Generic Name Dose Route Start Last Admin Trade Name Freq PRN Reason Stop Dose Admin Atorvastatin Calcium 40 mg 07/08/20 09:00 07/08/20 08:02 Atorvastatin 40 Mg Tab PO 08/07/20 08:59 40 mg QAM JEANETH Administration Cephalexin HCl 500 mg 07/07/20 22:56 07/08/20 08:02 Cephalexin 500 Mg Cap PO 08/06/20 22:55 500 mg BID JEANETH Administration Donepezil HCl 5 mg 07/08/20 09:00 07/08/20 08:02 Donepezil Hcl 5 Mg Tab PO 08/07/20 08:59 5 mg QAM JEANETH Administration Escitalopram Oxalate 20 mg 07/08/20 09:00 07/08/20 08:02 Escitalopram Oxalate 20 Mg Tab PO 08/07/20 08:59 20 mg QAM JEANETH Administration Pantoprazole Sodium 40 mg/ 10 mls @ 5 mls/min 07/08/20 01:10 07/08/20 08:06 Syringe IV 08/07/20 01:09 5 mls/min BID JEANETH Administration Insulin Aspart 0 units 07/08/20 06:00 07/08/20 06:20 Insulin Aspart 100 Units/Ml 3 Ml Pen SC 08/07/20 05:59 Not Given Q6 JEANETH Tamsulosin HCl 0.4 mg 07/07/20 22:56 07/08/20 00:04 Tamsulosin Hcl 0.4 Mg Cap PO 08/06/20 22:55 0.4 mg HS JEANETH Administration NPO Date Last Intake of Fluids: 07/08/20 Time Last Intake of Fluids: 08:00 Date Last Intake of Solids: 07/07/20 Time Last Intake of Solids: 12:00 Past Medical History Medical History Anxiety Arthritis Atrial ectopy BPH (benign prostatic hyperplasia) Carpal tunnel syndrome Cataracts, bilateral Coronary aneurysm (2011) Dementia Diabetes Diabetes mellitus type 2 with complications Edema of both legs HTN (hypertension) Orthostatic hypotension (07/2019) Recurrent cellulitis of lower extremity Sensorineural hearing loss (SNHL) Sensorineural hearing loss (SNHL) of both ears Sepsis due to group B Streptococcus (2017) Exercise / Class Metabolic Activity III < 4 Walking/Shop/Light housework Positive for SOB Patient denies active symptoms of GERD. Past Family History Family History Unknown Heart disease Denies family history of Prostate cancer Past Surgical History Surgical History H/O eye surgery H/O foot surgery History of right hip replacement S/P CABG (coronary artery bypass graft) (2012) CHILDS, "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 S/P triple vessel bypass S/P wrist surgery Past Anesthesia History No Hx of Anesthesia Complications History of PONV No Hx of PONV Social History Smoking Status: Never smoker Do You Dip or Chew Tobacco: No Hx Alcohol Use: No Alcohol type: beer alcohol intake frequency: holidays/special occasions only Hx Substance Use: Yes substance use type: marijuana Substance Use Type Other:: had medical marijuana card Last Used Substance Other:: did not ask when last used Review of Systems Patient denies active symptoms of GERD. Physical Exam Vital Signs Last Vital Signs Temp 37.2 C 07/08/20 12:42 Pulse 82 07/08/20 12:42 Resp 20 07/08/20 12:42 BP 191/86 H 07/08/20 12:42 Pulse Ox 97 07/08/20 12:42 Constitutional not obese ENMT Mouth: no TMJ abnormality and oral opening not small Thyromental Distance: > or= 3.5 Finger Breadths Mallampati Class: II Neck normal visual inspection and + facial hair; neck extension not limited Respiratory normal respiratory effort Auscultation: lungs clear to auscultation bilaterally Cardiovascular Rate/Rhythm: regular rate and regular rhythm Heart Sounds: no murmur Neurologic moves all extremities Psychiatric Orientation: alert and oriented x 3 Testing Laboratory Results 07/08/20 05:25 07/08/20 05:25 PT 11.2 Seconds (9.0-12.0) 07/07/20 17:13 INR 1.1 (0.9-1.1) 07/07/20 17:13 APTT 22.8 Seconds (21.0-31.0) 07/07/20 17:13 Hemoglobin A1c 6.4 % (4.5-5.6) H 07/08/20 05:25 Blood Type A Positive 07/07/20 19:19 Antibody Screen NEGATIVE 07/07/20 19:19 07/08/20 05:37 POC Glucose 126 H Electrocardiogram Date: 07/08/20 Findings: + NSR @ (79) marked sinus arrhythmia Left axis deviation Pulmonary disease pattern Incomplete right bundle branch block Nonspecific ST and T wave abnormality Abnormal ECG When compared with ECG of 07-JUL-2020 17:03, (unconfirmed) Nonspecific T wave abnormality, worse in Lateral leads QT has shortened Echocardiogram Date: 04/01/20 EF: 70 LV Function: normal RWMA: + none Other Findings: + LVH (mild, concentric) and + diastolic dysfunction (grade 1) Valvular Disease: + MR (moderate) mild aortic regurg, mildly dilated inferior vena cava, LV is hyperdynamic, bileaflet mitral valve prolapse
--- NOTE | 2020-07-08 12:31 | Hospitalist Progress Note ---
Date of Service July 08, 2020 Assessment & Plan (1) Symptomatic anemia: (2) MUSTAFA (dyspnea on exertion): GI bleed -Present on admission with weakness, low energy and SOB -Positive heme stool -Hgb on admission 7.2, hgb on 04/11 was 9.5 -was given 1 unit PRBC -EGD planned for 07/08/2020 Abnormal EKG -admission EKG showed ST depressions in the lateral leads as well as V4 V5 and V6 -as per cardiology "Despite his non-specific ST and T wave abnormalities -- patient has NOT had any anginal symptoms and his Troponin I level is < 0.015 ng/ml x 3. This is NOT an acute coronary syndrome or an acute cardiac process. Continue Atorvastatin 40 mg daily. Resume Aspirin when hemostasis allows and after source of GI blood loss identified and treated. Consider adding a Beta Sheldon due to CAD and hypertension." Elevated D-Dimer -CTA chest showed no evidence of PE Hypertension -outpatient medication of triamterene/HCTZ has been held for now while workup for GI bleed. consider resumption after EGD Diabetes mellitus type 2 without long term care social worker current use of insulin -outpatient metformin is held -sliding scale insulin while inpatient if needed Parkinson disease: Dementia -on donepezil and amantadine -Followed by Neuro at [facility] for the Parkinson's -answers questions appropriately on 07/08/2020 bedside exam Recurrent cellulitis (History of recurrent cellulitis of lower extremities) -Continue long term care social worker cephalexin for chronic suppression therapy . Benign Prostate Hypertrophy -on Flomax DVT prophylaxis: on SCD CODE STATUS FULL CODE Admission and Anticipated Discharge Date Admission Date: July 07, 2020 Subjective Patient seen and examined with daughter. As per nursing he is awaiting to be taken down to upper endoscopy. will ask nursing to repeat the blood pressure check. Patient no distress. breathing on room air. no symptoms currently. he answers questions appropriately Review of Systems 2 Review of Systems: All systems reviewed & are unremarkable except as noted in Subjective Physical Exam Constitutional: comfortable Eyes: PERRL, conjunctivae normal, anicteric sclerae EOM intact bilaterally ENMT: external ear and nose normal, oropharynx normal Neck: normal visual inspection Respiratory: normal respiratory effort, lungs clear to auscultation Gastrointestinal (Abdomen): normal bowel sounds, soft, nontender, no hepatosplenomegaly Musculoskeletal: Head/Neck/Chest: normocephalic and head atraumatic Neurologic: PERRL, EOMI, accommodation nl, no face palsy, no dysarthria CN's II-XI intact bilaterally Psychiatric: A+Ox3, euthymic affect Results & Data Results & [facility] ([facility]) Vital Signs (Past 12 Hours) Vital Signs Temp Pulse Resp BP Pulse Ox 07/08/20 07:38 36.5 C 70 18 182/78 H 97 07/08/20 04:56 36.8 C 07/08/20 03:40 37.6 C H 72 20 124/65 97
--- NOTE | 2020-07-08 13:10 | Electrocardiogram Report ---
Test Reason : Blood Pressure : / mmHG Vent. Rate : 082 BPM Atrial Rate : 082 BPM P-R Int : 186 ms QRS Dur : 102 ms QT Int : 394 ms P-R-T Axes : 040 -45 073 degrees QTc Int : 460 ms Normal sinus rhythm Left axis deviation Incomplete right bundle branch block Nonspecific ST and T wave abnormality Abnormal ECG When compared with ECG of 09-DEC-2019 17:51, HI interval has decreased Nonspecific T wave abnormality, improved in Lateral leads Confirmed by Tonio Ernandez ([id number]) on 07/08/2020 1:10:23 PM Referred By: Raphael Lopez Confirmed By:Tonio Ernandez
[2020-07-08] MEDS ORDERED: PROPOFOL IV EMULSION 10 MG/ML 20 ML VIAL IV ONE (13:14)
[2020-07-08] MEDS ORDERED: LIDOCAINE HCL 2% 2 ML VIAL/AMP(20MG/ML) INFIL ONE (13:14)
--- NOTE | 2020-07-08 13:18 | Communication Note ---
Date of Service: July 08, 2020 EGD w/ duodenitis. Can stop IV PPI. Start PO PPI BID. No GI contraindication to trial of clears and advancing as tolerated. Order placed for outpatient colonoscopy to be arranged.
--- NOTE | 2020-07-08 13:24 | Electrocardiogram Report ---
Test Reason : Blood Pressure : / mmHG Vent. Rate : 079 BPM Atrial Rate : 079 BPM P-R Int : 184 ms QRS Dur : 100 ms QT Int : 330 ms P-R-T Axes : 000 -45 148 degrees QTc Int : 378 ms Sinus rhythm with marked sinus arrhythmia Left axis deviation Incomplete right bundle branch block Poor R wave progression, consider anterior IL vs. lead placement vs. LVH Nonspecific ST and T wave abnormality Abnormal ECG When compared with ECG of 07-JUL-2020 17:03, (unconfirmed) Nonspecific T wave abnormality, worse in Lateral leads QT has shortened Confirmed by Tonio Ernandez ([id number]) on 07/08/2020 1:24:14 PM Referred By: Raphael Lopez Confirmed By:Tonio Ernandez
--- NOTE | 2020-07-08 13:25 | GI REPORT ---
Patient Name: Jesus Jose Procedure Date: 07/08/2020 12:49 PM Date of : 1945 Admit Type: Inpatient Age: 75 Gender: Male Attending MD: Francis Perez MD Procedure: Upper GI endoscopy Providers: Francis Perez MD Referring MD: Keo Stallings M.d. Indications: Acute post hemorrhagic anemia, Melena Medicines: See the Anesthesia note for documentation of the administered medications Complications: No immediate complications. Estimated Blood Loss: Estimated blood loss: none. Procedure: Pre-Anesthesia Assessment: - Prior to the procedure, a History and Physical was performed, and patient medications, allergies and sensitivities were reviewed. The patient's tolerance of previous anesthesia was reviewed. - The risks and benefits of the procedure and the sedation options and risks were discussed with the patient. All questions were answered and informed consent was obtained. - Patient identification and proposed procedure were verified prior to the procedure by the physician and the nurse. The procedure was verified in the pre-procedure area. - Pre-procedure physical examination revealed no contraindications to sedation. - After reviewing the risks and benefits, the patient was deemed in satisfactory condition to undergo the procedure. After obtaining informed consent, the endoscope was passed under direct vision. Throughout the procedure, the patient's blood pressure, pulse, and oxygen saturations were monitored continuously. The Endoscope was introduced through the mouth, and advanced to the third part of duodenum. The upper GI endoscopy was accomplished without difficulty. The patient tolerated the procedure well. Findings: The esophagus was normal. The stomach was normal. Patchy erythematous mucosa without active bleeding was found in the duodenal bulb. The cardia and gastric fundus were normal on retroflexion. Impression: - Normal esophagus. - Normal stomach. - Erythematous duodenopathy. - No specimens collected. Recommendation: - Return patient to [facility] for [facility] care. - Cont BID PPI. Francis Perez M.D. Francis Perez MD 07/08/2020 1:25:39 PM This report has been signed electronically. Note Initiated On: 07/08/2020 12:49 PM Number of Addenda: 0 I attest to the content of the Intraoperative Record and orders documented therein, exceptions below {[id number]}
--- NOTE | 2020-07-08 13:41 | Anesthesiology Progress Note ---
Date of Service July 08, 2020 Anesthesia Post Procedure Vital Signs Vital Signs: Temp Pulse Pulse Pulse Resp BP BP 07/08/20 13:34 86 20 158/69 H 07/08/20 13:17 86 20 141/72 H 07/08/20 12:42 37.2 C 82 20 191/86 H 07/08/20 08:00 78 07/08/20 07:38 36.5 C 70 18 07/08/20 04:56 36.8 C 07/08/20 03:40 37.6 C H 72 20 07/08/20 00:00 66 07/07/20 23:55 154/78 H 07/07/20 22:35 36.6 C 71 18 188/76 H 07/07/20 22:01 69 25 H 169/83 H 07/07/20 22:00 82 23 07/07/20 21:47 37.1 C 83 24 169/83 H 07/07/20 21:30 75 18 07/07/20 21:17 36.7 C 73 23 173/90 H 07/07/20 21:02 36.7 C 81 20 171/94 H 07/07/20 21:00 74 20 171/94 H 07/07/20 20:44 36.9 C 77 23 157/79 H 07/07/20 20:30 82 20 165/66 H 07/07/20 20:00 82 27 H 158/80 H 07/07/20 19:30 76 25 H 175/75 H 07/07/20 19:00 91 H 24 160/75 H 07/07/20 18:00 74 25 H 149/70 H 07/07/20 17:41 77 77 22 146/67 H 07/07/20 16:58 36.9 C 86 18 148/70 H BP Pulse Ox 07/08/20 13:34 96 07/08/20 13:17 98 07/08/20 12:42 97 07/08/20 08:00 07/08/20 07:38 182/78 H 97 07/08/20 04:56 07/08/20 03:40 124/65 97 07/08/20 00:00 07/07/20 23:55 07/07/20 22:35 99 07/07/20 22:01 99 07/07/20 22:00 99 07/07/20 21:47 99 09/15/20 21:30 99 07/07/20 21:17 99 07/07/20 21:02 98 07/07/20 21:00 98 07/07/20 20:44 96 07/07/20 20:30 98 07/07/20 20:00 100 07/07/20 19:30 100 07/07/20 19:00 98 07/07/20 18:00 98 07/07/20 17:41 97 07/07/20 16:58 100 Transfer of Care Handoff Completed per policy Notes Mental Status: alert / awake / arousable and participated in evaluation Nausea / Vomiting: adequately controlled Pain: adequately controlled Airway Patency, RR, SpO2: stable & adequate BP & HR: stable & adequate Hydration State: stable & adequate Anesthetic Complications: no major complications apparent and Pt Satisfied with anesthetic care
[2020-07-08] MEDS: PANTOprazole 40 MG TAB PO SCH (21:24)
[2020-07-09 06:11] LABS: Hematocrit (blood only) 27.7 % (42-52); Hemoglobin 7.9 g/dL (14.0-18.0); Mean Corpuscular Hemoglobin 18.7 pg (25-34); Mean Corpuscular Hgb Conc 28.5 g/dL (32-36); Mean Corpuscular Volume 65.6 fL (80-100); Mean Platelet Volume 8.6 fL (7.4-10.4); Platelet Count 151 K/uL (130-400); RDW Coefficient of Variation 20.4 % (11.5-14.5); RDW Standard Deviation 48.1 fL (36.4-46.3); Red Blood Count 4.22 M/uL (4.7-6.1); White Blood Count 3.44 K/uL (4.8-10.8)
[2020-07-09 07:31] LABS: Anisocytosis Present; Basophils # (auto) 0.03 K/uL (0-0.2); Basophils % (auto) 0.9 %; Eosinophils # (auto) 0.11 K/uL (0-0.5); Eosinophils % (auto) 3.2 %; Hypochromasia Present; Lymphocytes # (auto) 0.67 K/uL (1.2-3.4); Lymphocytes % (auto) 19.5 %; Microcytosis Present; Monocytes # (auto) 0.42 K/uL (0.11-0.59); Monocytes % (auto) 12.2 %; Neutrophils # (auto) 2.21 K/uL (1.4-6.5); Neutrophils % (auto) 64.2 %
[2020-07-09] MEDS: ESCITALOPRAM OXALATE 20 MG TAB PO SCH (08:20)
[2020-07-09] MEDS: AMANTADINE HCL 100 MG CAPSULE PO SCH (08:20)
[2020-07-09] MEDS: PANTOprazole 40 MG TAB PO SCH ×2 (08:20→20:38)
[2020-07-09] MEDS: INSULIN ASPART 100 UNITS/ML 3 ML PEN SC SCH ×4 (08:21→20:48)
[2020-07-09] MEDS: DONEPEZIL HCL 5 MG TAB PO SCH (08:21)
[2020-07-09] MEDS: ATORVASTATIN 40 MG TAB PO SCH (08:21)
[2020-07-09] MEDS: cephALEXin 500 MG CAP PO SCH ×2 (08:58→20:38)
--- NOTE | 2020-07-09 09:02 | Gastroenterology Progress Note ---
Date of Service July 09, 2020 Assessment & Plan (1) Symptomatic anemia: 75 year old male admitted w/ symptomatic anemia, dark stools x 3/4 weeks, has not had EGD, colon in 2004 and 2014 unremarkable. EGD yesterday largely unremarkable, clinically feeling well. Clear liquids today Colonoscopy tomorrow if we are able to arrange, if not as OP Trend HGB Monitor and document all stools Transfuse PRN Can have ASA PO PPI BID Thank you for allowing us to participate in the care of this patient. Please call with any acute changes, questions or concerns. Please see addendum below with additional recommendation from my supervising physician. Admission and Anticipated Discharge Date Admission Date: July 07, 2020 Supervising Physician Co-Signing Physician Notes I have personally seen and examined the patient with HALLIE Thompson. Her note reflects my exam and findings. I agree with her impression and plan. Pt doing well. Will arrange colonoscopy in am since it has been 5 years to r/o lower GI bleeding. Discussed with patient and family at bedside. Francis Perez M.D. Subjective Pt was seen and evaluated, chart reviewed. No concerns this AM. No abd pain. No nausea/vomiting had a brown stool yesterday Review of Systems Constitutional: no fever and no chills Respiratory: no cough and no dyspnea Cardiovascular: no chest pain Gastrointestinal: no abdominal pain, no nausea, no coffee ground emesis, no hematemesis, no blood in stools and no melena Physical Exam Constitutional: no acute distress Neck: trachea midline Respiratory: normal respiratory effort Cardiovascular: Rate/Rhythm: regular rate Gastrointestinal (Abdomen): normal bowel sounds, soft, nontender, no hepatosplenomegaly Results & Data ([facility]) Vital Signs (Past 12 Hours) Vital Signs Temp Pulse Pulse Resp BP BP Pulse Ox 07/09/20 07:22 36.4 C L 67 18 124/54 L 98 07/09/20 07:16 65 07/09/20 03:17 36.6 C 71 18 129/71 98 07/08/20 22:58 36.4 C L 81 18 123/59 L 96 07/08/20 22:33 77 Laboratory Results 07/09/20 07/09/20 07/08/20 Range/Units 05:20 01:55 20:09 WBC 3.44 L (4.8-10.8) K/uL RBC 4.22 L (4.7-6.1) M/uL Hgb 7.9 L (14.0-18.0) g/dL Hct 27.7 L (42-52) % MCV 65.6 L (80-100) fL MCH 18.7 L (25-34) pg MCHC 28.5 L (32-36) g/dL RDW Std Deviation 48.1 H (36.4-46.3) fL RDW Coeff of Anny 20.4 H (11.5-14.5) % Plt Count 151 (130-400) K/uL MPV 8.6 (7.4-10.4) fL Immature Gran % (Auto) 0.0 % Neut % (Auto) 64.2 % Lymph % (Auto) 19.5 % [place] % (Auto) 12.2 % Eos % (Auto) 3.2 % Baso % (Auto) 0.9 % Neut # (Auto) 2.21 (1.4-6.5) K/uL Lymph # (Auto) 0.67 L (1.2-3.4) K/uL [place] # (Auto) 0.42 (0.11-0.59) K/uL Eos # (Auto) 0.11 (0-0.5) K/uL Baso # (Auto) 0.03 (0-0.2) K/uL Immature Gran # (Auto) 0.00 (0.00-0.02) K/uL Hypochromasia Present Anisocytosis Present Microcytosis Present POC Glucose 102 H 96 (70-99) mg/dl COVID-19 Eval Order SARS-CoV-2, RNA, NAAT (NEGATIVE) 07/08/20 07/08/20 07/08/20 Range/Units 16:38 10:20 10:20 WBC (4.8-10.8) K/uL RBC (4.7-6.1) M/uL Hgb (14.0-18.0) g/dL Hct (42-52) % MCV (80-100) fL MCH (25-34) pg MCHC (32-36) g/dL RDW Std Deviation (36.4-46.3) fL RDW Coeff of Anny (11.5-14.5) % Plt Count (130-400) K/uL MPV (7.4-10.4) fL Immature Gran % (Auto) % Neut % (Auto) % Lymph % (Auto) % [place] % (Auto) % Eos % (Auto) % Baso % (Auto) % Neut # (Auto) (1.4-6.5) K/uL Lymph # (Auto) (1.2-3.4) K/uL [place] # (Auto) (0.11-0.59) K/uL Eos # (Auto) (0-0.5) K/uL Baso # (Auto) (0-0.2) K/uL Immature Gran # (Auto) (0.00-0.02) K/uL Hypochromasia Anisocytosis Microcytosis POC Glucose 173 H (70-99) mg/dl COVID-19 Eval [facility] SARS-CoV-2, RNA, NAAT NEGATIVE (NEGATIVE)
--- NOTE | 2020-07-09 12:47 | Hospitalist Progress Note ---
Date of Service July 09, 2020 Assessment & Plan (1) Symptomatic anemia: (2) MUSTAFA (dyspnea on exertion): GI bleed -Present on admission with weakness, low energy and SOB -Positive heme stool -Hgb on admission 7.2, hgb on 04/11 was 9.5 -was given 1 unit PRBC -EGD obtained did not find source of blood loss on 07/08/2020 -Hgb mildly better as 7.9 on 07/09/2020, colonoscopy planned for 07/10/2020 Abnormal EKG -admission EKG showed ST depressions in the lateral leads as well as V4 V5 and V6 -as per cardiology "Despite his non-specific ST and T wave abnormalities -- patient has NOT had any anginal symptoms and his Troponin I level is < 0.015 ng/ml x 3. This is NOT an acute coronary syndrome or an acute cardiac process. Continue Atorvastatin 40 mg daily. Resume Aspirin when hemostasis allows and after source of GI blood loss identified and treated. Consider adding a Beta Sheldon due to CAD and hypertension." Elevated D-Dimer -CTA chest showed no evidence of PE Hypertension -outpatient medication of triamterene/HCTZ was held temporarily now while workup for GI bleed -can continue home medication Diabetes mellitus type 2 without snf current use of insulin -outpatient metformin is held -sliding scale insulin while inpatient if needed Parkinson disease: Dementia -on donepezil and amantadine -Followed by Neuro at [facility] for the Parkinson's -answers questions appropriately on 07/08/2020 bedside exam; patient's family does help him with medical decisions 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 Benign Prostate Hypertrophy -on Flomax DVT prophylaxis: on SCD CODE STATUS FULL CODE Admission and Anticipated Discharge Date Admission Date: July 07, 2020 Subjective -EGD obtained did not find source of blood loss on 07/08/2020 -Hgb mildly better as 7.9 on 07/09/2020, colonoscopy planned for 07/10/2020 patient denies problems with bowel movements while in hospital. no abdominal pain. no chest pain. no shortness of breath. no dizziness. no headache. no nausea. no vomiting Review of Systems Review of Systems: All systems reviewed & are unremarkable except as noted in Subjective Physical Exam Constitutional: comfortable Eyes: PERRL, conjunctivae normal, anicteric sclerae EOM intact bilaterally ENMT: external ear and nose normal, oropharynx normal Neck: normal visual inspection Respiratory: normal respiratory effort, lungs clear to auscultation Cardiovascular: Rate/Rhythm: regular rate Gastrointestinal (Abdomen): normal bowel sounds, soft, nontender, no hepatosplenomegaly Musculoskeletal: Head/Neck/Chest: normocephalic and head atraumatic Neurologic: PERRL, EOMI, accommodation nl, no face palsy, no dysarthria CN's II-XI intact bilaterally Psychiatric: A+Ox3, euthymic affect Results & Data Results & Data ([facility]) Vital Signs (Past 12 Hours) Vital Signs Temp Pulse Pulse Resp BP BP Pulse Ox 07/09/20 11:26 36.8 C 90 18 164/66 H 98 07/09/20 07:22 36.4 C L 67 18 124/54 L 98 07/09/20 07:16 65 07/09/20 03:17 36.6 C 71 18 129/71 98
[2020-07-09] MEDS ORDERED: TRIAMTERENE/HCTZ 37.5/25MG TAB PO ONE (12:49)
[2020-07-09] MEDS ORDERED: LAVAGE SOLUTION 4000ML PO SCH (17:15)
[2020-07-09] MEDS: TAMSULOSIN HCL 0.4 MG CAP PO SCH (20:38)
[2020-07-10] MEDS: INSULIN ASPART 100 UNITS/ML 3 ML PEN SC SCH ×2 (07:55→11:19)
[2020-07-10] MEDS ORDERED: TRIAMTERENE/HCTZ 37.5/25MG TAB PO SCH (09:00)
--- NOTE | 2020-07-10 09:02 | Gastroenterology Progress Note ---
Date of Service July 10, 2020 Assessment & Plan (1) Symptomatic anemia: 75 year old male admitted w/ symptomatic anemia, dark stools x 3/4 weeks, has not had EGD, colon in 2004 and 2014 unremarkable. EGD yesterday largely unremarkable, clinically feeling well. NPO for colon this AM. NPO for colonoscopy Thank you for allowing us to participate in the care of this patient. Please call with any acute changes, questions or concerns. Please see addendum below with additional recommendation from my supervising physician. Admission and Anticipated Discharge Date Admission Date: July 07, 2020 Supervising Physician Co-Signing Physician Notes I have personally seen and examined the patient with HALLIE Thompson. Her note reflects my exam and findings. I agree with her impression and plan. Pt doing well. Colonoscopy this am. No signs of bleeding. Francis Perez M.D. Subjective NPO for colon Bowels clear No black or blood with prep per patient No concerns Review of Systems Review of Systems: All systems reviewed & are unremarkable except as noted in HPI & below Physical Exam Constitutional: no acute distress Results & Data ([place]) Vital Signs (Past 12 Hours) Vital Signs Temp Pulse Pulse Pulse Resp BP BP 07/10/20 08:02 72 07/10/20 07:46 36.8 C 69 18 148/74 H 07/10/20 03:33 36.6 C 71 16 144/66 H 07/09/20 23:00 36.6 C 69 20 159/83 H 07/09/20 22:35 67 Pulse Ox 07/10/20 08:02 07/10/20 07:46 98 07/10/20 03:33 100 07/09/20 23:00 98 07/09/20 22:35
[2020-07-10] MEDS ORDERED: LIDOCAINE HCL 2% 2 ML VIAL/AMP(20MG/ML) INFIL ONE (10:08)
[2020-07-10] MEDS ORDERED: PROPOFOL IV EMULSION 10 MG/ML 20 ML VIAL IV ONE (10:08)
--- NOTE | 2020-07-10 10:12 | GI REPORT ---
Patient Name: Jesus Jose Procedure Date: 07/10/2020 9:34 AM Date of : 1945 Admit Type: Inpatient Age: 75 Gender: Male Attending MD: Francis Perez MD Procedure: Colonoscopy Providers: Francis Perez MD Referring MD: Keo Stallings M.d. Indications: Acute post hemorrhagic anemia Medicines: See the Anesthesia note for documentation of the administered medications Complications: No immediate complications. Estimated Blood Loss: Estimated blood loss: none. Procedure: Pre-Anesthesia Assessment: - Prior to the procedure, a History and Physical was performed, and patient medications, allergies and sensitivities were reviewed. The patient's tolerance of previous anesthesia was reviewed. - The risks and benefits of the procedure and the sedation options and risks were discussed with the patient. All questions were answered and informed consent was obtained. - Patient identification and proposed procedure were verified prior to the procedure by the physician and the nurse. The procedure was verified in the pre-procedure area. - Pre-procedure physical examination revealed no contraindications to sedation. - After reviewing the risks and benefits, the patient was deemed in satisfactory condition to undergo the procedure. After I obtained informed consent, the scope was passed under direct vision. Throughout the procedure, the patient's blood pressure, pulse, and oxygen saturations were monitored continuously. The scope was introduced through the anus and advanced to the terminal ileum, with identification of the appendiceal orifice and IC valve. The colonoscopy was performed without difficulty. The patient tolerated the procedure well. The quality of the bowel preparation was good. Findings: The perianal and digital rectal examinations were normal. The terminal ileum appeared normal. Multiple small-mouthed diverticula were found in the sigmoid colon. Internal hemorrhoids were found during retroflexion. The hemorrhoids were medium-sized. The exam was otherwise without abnormality on direct and retroflexion views. Impression: - The examined portion of the ileum was normal. - Diverticulosis in the sigmoid colon. - Internal hemorrhoids. - The examination was otherwise normal on direct and retroflexion views. - No specimens collected. Recommendation: - Discharge patient to home. - I do not recommend a repeat screening colonoscopy in 10 years. Francis Perez M.D. Francis Perez MD 07/10/2020 10:12:28 AM This report has been signed electronically. Note Initiated On: 07/10/2020 9:34 AM Number of Addenda: 0 I attest to the content of the Intraoperative Record and orders documented therein, exceptions below {[id number]}
--- NOTE | 2020-07-10 10:51 | Anesthesiology Progress Note ---
Date of Service July 10, 2020 Anesthesia Post Procedure Vital Signs Vital Signs: Temp Pulse Pulse Pulse Resp BP BP 07/10/20 10:37 64 16 157/72 H 07/10/20 10:22 66 16 153/69 H 07/10/20 10:07 65 16 130/51 L 07/10/20 09:31 36.5 C 76 16 204/58 H 07/10/20 08:02 72 07/10/20 07:46 36.8 C 69 18 148/74 H 07/10/20 03:33 36.6 C 71 16 144/66 H 07/09/20 23:00 36.6 C 69 20 159/83 H 07/09/20 22:35 67 07/09/20 19:12 36.7 C 70 20 162/72 H 07/09/20 16:00 68 07/09/20 15:55 36.5 C 71 20 155/76 H 07/09/20 11:26 36.8 C 90 18 164/66 H Pulse Ox 07/10/20 10:37 99 07/10/20 10:22 99 07/10/20 10:07 100 07/10/20 09:31 100 07/10/20 08:02 07/10/20 07:46 98 07/10/20 03:33 100 07/09/20 23:00 98 07/09/20 22:35 07/09/20 19:12 100 07/09/20 16:00 07/09/20 15:55 98 07/09/20 11:26 98 Transfer of Care Handoff Completed per policy Notes Mental Status: alert / awake / arousable and participated in evaluation Patient Amnestic to Procedure: Yes Nausea / Vomiting: adequately controlled Pain: adequately controlled Airway Patency, RR, SpO2: stable & adequate BP & HR: stable & adequate Hydration State: stable & adequate Anesthetic Complications: no major complications apparent
[2020-07-10] MEDS: ESCITALOPRAM OXALATE 20 MG TAB PO SCH (11:05)
[2020-07-10] MEDS: cephALEXin 500 MG CAP PO SCH (11:06)
[2020-07-10] MEDS: ATORVASTATIN 40 MG TAB PO SCH (11:06)
[2020-07-10] MEDS: DONEPEZIL HCL 5 MG TAB PO SCH (11:06)
[2020-07-10] MEDS: PANTOprazole 40 MG TAB PO SCH (11:06)
--- NOTE | 2020-07-10 11:06 | Hospitalist Progress Note ---
Date of Service July 10, 2020 Assessment & Plan (1) Symptomatic anemia: (2) MUSTAFA (dyspnea on exertion): GI bleed internal hemorrhoids and sigmoid diverticulosis -Present on admission with weakness, low energy and SOB -Positive heme stool -Hgb on admission 7.2, hgb on 04/11 was 9.5 -was given 1 unit PRBC -EGD obtained did not find source of blood loss on 07/08/2020 -Hgb mildly better as 7.9 on 07/09/2020, -colonoscopy on 07/10/2020 found only internal hemorrhoids and sigmoid diverticulosis Abnormal EKG -admission EKG showed ST depressions in the lateral leads as well as V4 V5 and V6 -as per cardiology "Despite his non-specific ST and T wave abnormalities -- patient has NOT had any anginal symptoms and his Troponin I level is < 0.015 ng/ml x 3. This is NOT an acute coronary syndrome or an acute cardiac process. Continue Atorvastatin 40 mg daily. Resume Aspirin when hemostasis allows and after source of GI blood loss identified and treated. Consider adding a Beta Sheldon due to CAD and hypertension." -discussed with patient and family that patient may resume aspirin 81 mg daily on discharge, hospitalist also wrote prescription for pantoprazole 40 mg daily to take with aspirin in case of any future irritation to stomach lining. Patient to follow up with family medical doctor for follow hemoglobin Elevated D-Dimer -CTA chest showed no evidence of PE Hypertension -outpatient medication of triamterene/HCTZ was held temporarily now while workup for GI bleed -can continue home medication Diabetes mellitus type 2 without fci current use of insulin -outpatient metformin is held -sliding scale insulin while inpatient if needed Parkinson disease: Dementia -on donepezil and amantadine -Followed by Neuro at [facility] for the Parkinson's -answers questions appropriately on 07/08/2020 bedside exam; patient's family does help him with medical decisions 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 Benign Prostate Hypertrophy -on Flomax DVT prophylaxis: on SCD while inpatient CODE STATUS FULL CODE Admission and Anticipated Discharge Date Admission Date: July 07, 2020 Subjective Patient returned from colonoscopy. no acute distress. no acute source of bleeding found in colonoscopy. patient is allowed to have diet. no chest pain. breathing on room air. no dizziness. no headache. no abdomen pain Review of Systems Review of Systems: All systems reviewed & are unremarkable except as noted in Subjective Physical Exam Constitutional: comfortable Eyes: PERRL, conjunctivae normal, anicteric sclerae EOM intact bilaterally ENMT: external ear and nose normal, oropharynx normal Neck: normal visual inspection Respiratory: normal respiratory effort, lungs clear to auscultation Cardiovascular: Rate/Rhythm: regular rate Gastrointestinal (Abdomen): normal bowel sounds, soft, nontender, no hepatosplenomegaly Musculoskeletal: Head/Neck/Chest: normocephalic and head atraumatic Neurologic: PERRL, EOMI, accommodation nl, no face palsy, no dysarthria CN's II-XI intact bilaterally Psychiatric: A+Ox3, euthymic affect Results & Data Results & Data ([facility]) Vital Signs (Past 12 Hours) Vital Signs Temp Pulse Pulse Pulse Resp BP BP 07/10/20 10:37 64 16 157/72 H 07/10/20 10:22 66 16 153/69 H 07/10/20 10:07 65 16 130/51 L 07/10/20 09:31 36.5 C 76 16 204/58 H 07/10/20 08:02 72 07/10/20 07:46 36.8 C 69 18 148/74 H 07/10/20 03:33 36.6 C 71 16 144/66 H Pulse Ox 07/10/20 10:37 99 07/10/20 10:22 99 07/10/20 10:07 100 07/10/20 09:31 100 07/10/20 08:02 07/10/20 07:46 98 07/10/20 03:33 100
[2020-07-10] MEDS: AMANTADINE HCL 100 MG CAPSULE PO SCH (11:11)
--- NOTE | 2020-07-10 11:13 | Discharge Summary ---
Date of Service July 10, 2020 Admission HPI Per Admitting Provider 75 yo male with PMH of HTN, BPH, DM type 2, Parkinsonism, CAD s/p CABG, Dementia, FABIANO, seborrheic dermatitis, dyslipidemia was sent from PCP office for abnormal EKG. patient was seen today at his PCP office for increased shortness of breath and weakness. Patient said that symptom has been going on for the last 2 weeks. He said that he felt very weak with minimal exertion. He said that he feels weak with low energy. He has been having dizziness with ambulation and gait is unsteady. notices his skin color his pale. Patient said he has been having dark stools for the last few days most recent episode today. Guaiac done in the ER was positive. Denies any chest pain, palpitation, fever, nausea and vomiting. Patient said that he had a colonoscopy done many years ago. Hemoglobin done on admission 7.2. Principal Diagnosis Symptomatic anemia GI bleed, Internal hemorrhoids and sigmoid diverticulosis MUSTAFA (dyspnea on exertion) Diabetes mellitus type 2 without lead material handler current use of insulin Parkinson disease Discharge Exam Constitutional comfortable Eyes PERRL, conjunctivae normal, anicteric sclerae EOM intact bilaterally ENMT external ear and nose normal, oropharynx normal Neck normal visual inspection Respiratory normal respiratory effort, lungs clear to auscultation Cardiovascular Rate/Rhythm: regular rate Gastrointestinal (Abdomen) normal bowel sounds, soft, nontender, no hepatosplenomegaly Musculoskeletal Head/Neck/Chest: normocephalic and head atraumatic Neurologic PERRL, EOMI, accommodation nl, no face palsy, no dysarthria CN's II-XI intact bilaterally Psychiatric A+Ox3, euthymic affect Discharge Data Allergies Allergy/AdvReac Type Severity Reaction Status Date / Time YONATAN Inhibitors AdvReac Mild Cough Verified 07/07/20 18:03 Consultations 07/07/20 19:03 ED Decision to Admit Stat 07/07/20 22:56 Consult Cardiology Routine 07/08/20 07:00 Consult Gastroenterology Routine Procedures Performed Operation Date: 07/08/20 16:30 Actual Procedures p Esophagogastroduodenoscopy - Francis Perez Operation Date: 07/10/20 09:15 Actual Procedures p Colonoscopy - Francis Perez Ordered Studies 07/07/20 18:09 CT angio chest PE protocol Stat Hospital Course (1) Symptomatic anemia: (2) MUSTAFA (dyspnea on exertion): GI bleed internal hemorrhoids and sigmoid diverticulosis -Present on admission with weakness, low energy and SOB -Positive heme stool -Hgb on admission 7.2, hgb on 04/11 was 9.5 -was given 1 unit PRBC -EGD obtained did not find source of blood loss on 07/08/2020 -Hgb mildly better as 7.9 on 07/09/2020, -colonoscopy on 07/10/2020 found only internal hemorrhoids and sigmoid diverticulosis Abnormal EKG -admission EKG showed ST depressions in the lateral leads as well as V4 V5 and V6 -as per cardiology "Despite his non-specific ST and T wave abnormalities -- patient has NOT had any anginal symptoms and his Troponin I level is < 0.015 ng/ml x 3. This is NOT an acute coronary syndrome or an acute cardiac process. Continue Atorvastatin 40 mg daily. Resume Aspirin when hemostasis allows and after source of GI blood loss identified and treated. Consider adding a Beta Sheldon due to CAD and hypertension." -discussed with patient and family that patient may resume aspirin 81 mg daily on discharge, hospitalist also wrote prescription for pantoprazole 40 mg daily to take with aspirin in case of any future irritation to stomach lining. Patient to follow up with family medical doctor for follow hemoglobin Elevated D-Dimer -CTA chest showed no evidence of PE Hypertension -outpatient medication of triamterene/HCTZ was held temporarily now while workup for GI bleed -can continue home medication Diabetes mellitus type 2 without group home current use of insulin -outpatient metformin is held -sliding scale insulin while inpatient if needed Parkinson disease: Dementia -on donepezil and amantadine -Followed by Neuro at [facility] for the Parkinson's -answers questions appropriately on 07/08/2020 bedside exam; patient's family does help him with medical decisions Recurrent cellulitis (History of recurrent cellulitis of lower extremities) -Continue group home cephalexin for chronic suppression therapy . Benign Prostate Hypertrophy -on Flomax DVT prophylaxis: on SCD while inpatient CODE STATUS FULL CODE Total Time Total Time Spent Total Time Spent (In Minutes): 40 minutes Total Time Includes: Examination of the Patient, Discharge Planning, Medication Reconciliation and Communication With Other Providers Discharge Plan Discharge Items Patient Disposition: Home - Self-Care Reason For Visit: ANEMIA Discharge Diagnosis: Symptomatic anemia GI bleed, Internal hemorrhoids and sigmoid diverticulosis MUSTAFA (dyspnea on exertion) Diabetes mellitus type 2 without lead material handler current use of insulin Parkinson disease Condition on Discharge: Good Activity: Per Instructions section Non-emergency contact: Primary Care Provider Call non-emergency contact if: you have any medication questions Follow-up/Referrals: Michael Hinton MD [Primary Care Provider] - 07/15/20 11:00 am (Date & Time 07/15/2020 11:00 AM Provider Michael Hinton MD Department [facility] ) Diet: Carb Consistent or DM2 Addtl Attending Provider Instructions: Symptomatic anemia: MUSTAFA (dyspnea on exertion): GI bleed internal hemorrhoids and sigmoid diverticulosis -Present on admission with weakness, low energy and SOB -Positive heme stool -Hgb on admission 7.2, hgb on 04/11 was 9.5 -was given 1 unit PRBC -EGD obtained did not find source of blood loss on 07/08/2020 -Hgb mildly better as 7.9 on 07/09/2020, -colonoscopy on 07/10/2020 found only internal hemorrhoids and sigmoid diverticulosis Abnormal EKG -admission EKG showed ST depressions in the lateral leads as well as V4 V5 and V6 -as per cardiology "Despite his non-specific ST and T wave abnormalities -- patient has NOT had any anginal symptoms and his Troponin I level is < 0.015 ng/ml x 3. This is NOT an acute coronary syndrome or an acute cardiac process. Continue Atorvastatin 40 mg daily. Resume Aspirin when hemostasis allows and after source of GI blood loss identified and treated. Consider adding a Beta Sheldon due to CAD and hypertension." -discussed with patient and family that patient may resume aspirin 81 mg daily on discharge, hospitalist also wrote prescription for pantoprazole 40 mg daily to take with aspirin in case of any future irritation to stomach lining. Patient to follow up with family medical doctor for follow hemoglobin Pending Studies at Discharge: No Stand-Alone Forms: My [employer], Smoking Cessation Medications and DC Order Prescriptions: New pantoprazole 40 mg Tablet,Delayed Release (Dr/Ec) 40 mg PO DAILY 30 Days Qty: 30 RF: 0 Continued cephalexin 500 mg capsule 500 mg PO BID Qty: 60 RF: 0 donepezil 5 mg tablet 5 mg PO QAM RF: 0 amantadine HCl 100 mg capsule 100 mg PO BID RF: 0 escitalopram oxalate 20 mg tablet 20 mg PO QAM Qty: 90 RF: 3 triamterene-hydrochlorothiazid 37.5-25 mg tablet 1 tab PO DAILY Qty: 90 RF: 3 atorvastatin 40 mg Tablet 40 mg PO QAM RF: 0 aspirin [Aspir-81] 81 mg Tablet,Delayed Release (Dr/Ec) 81 mg PO QAM RF: 0 tamsulosin 0.4 mg capsule 0.4 mg PO HS Qty: 90 RF: 0 metformin 500 mg tablet extended release 24 hr 500 mg PO QAM RF: 0 Discharge Orders: Discharge Order (Routine); Ordered 07/10/20 Ordered By: Keo Ramos/Other Patient Handouts: Managing Type 2 Diabetes Admission Data Admit Date/Time: 07/07/20 20:59 Attending Provider: Keo Stallings Admit Provider: Lucy Alexander Primary Care Provider: Michael Hinton Other Providers: Eduardo Echeverria ; Tonio Ernandez ; Francis Perez Other Interventions: Discharge Summary Assessment (RN) Last Done: 07/10/20 11:28
[2020-07-10] MEDS ORDERED: AMANTADINE HCL 100 MG CAPSULE PO SCH (21:00)
--- NOTE | 2020-07-22 13:05 | Coding Query ---
ANEMIA To promote full compliance with coding requirements relating to patient care, physician participation is requested in all cases of nail making machine tender uncertainty. Please assist us with the question(s) below: Coding Question(s): The record reflects the following clinical findings: If these findings are indicative of anemia, please specify the known or suspected type by placing an "X" within the parenthesis (x). If other, please document type. Examples are: ( x) Acute blood loss anemia ( ) Acute Postoperative blood loss anemia ( ) Acute postoperative anemia due to dilutional fluids ( ) Chronic blood loss anemia ( ) Anemia of chronic disease ( ) Aplastic anemia ( ) Anemia due to renal disease ( ) Anemia in neoplastic disease ( ) Iron deficient anemia ( ) Anemia, unspecified or other ( ) Other: (please specify) ( ) Unable to determine Thank you Jes MURRY
== END 2020-07-10 12:57 | disposition home or self-care (01) | DRG 378 ==
LOC: ED 16:53 → 2N 20:59

== ENCOUNTER 2021-02-06 22:34 | Inpatient (IN) ==
[2021-02-06] MEDS ORDERED: SODIUM CHLORIDE 0.9% 500 ML IV ONE (23:09)
--- NOTE | 2021-02-06 23:14 | Emergency Department Note ---
Impression & Plan Fall, Acute dehydration ED Provider Note NAME: CHE BURCH AGE: 75 SEX: M ARRIVES VIA: Ambulance INFORMANT: Patient ED PROVIDER(S): Yoselin Kirk DO CHIEF COMPLAINT: Fall PLAN: Disposition: Admitted to the [facility] service Condition: Good MEDICAL DECISION MAKING: This is a 75-year-old male patient who presents to the emergency department after suffering a fall at home. The patient underwent cervical spine surgery a couple of weeks ago in [place]. He is currently wearing a Tel[place] J collar. The patient was in the bathroom tonight and fell to the ground secondary to we akness. According to the , they are having a difficult time keeping the patient hydrated as he is refusing to drink clear liquids. They are also having a difficult time managing his postsurgical pain. spoke with the patient surgeon in [place] and are requesting that the patient go to an inpatient rehab facility. The patient appears quite dehydrated on physical exam. He was given a small bolus of saline solution. [facility] and [facility] will evaluate for further management. Triage Nursing notes reviewed and agree them. Additional history obtained from the patient's who arrived in the emergency department Prior medical records reviewed Vital Signs: reviewed and remarkable for hypertension and hypoxia Differential diagnosis: Dehydration, pneumonia, CHF, traumatic injury from the fall ER treatment provided: IV normal saline Diagnostics interpreted by me: ECG: Normal sinus rhythm at a rate of 89 with PACs. There is no ST segment elevation or signs of ischemia. Cardiac Monitoring: Normal sinus rhythm at a rate of 89 Laboratory studies: See below Imaging studies: As per my interpretation Portable chest x-ray: Cardiomegaly with no pulmonary infiltrates or consolidations HPI: 75/M arrives for evaluation of fall. The patient was attempting to get up to go to the bathroom and unfortunately fell to the ground according to family. The patient underwent neck surgery in [place] a couple weeks ago. He is currently wearing a Telida J collar. The family told EMS they are having difficulty controlling his pain and keeping the patient well-hydrated and they feel that he has become weak and that is why he continues to fall to the ground frequently. They originally called EMS for a lift assist but when EMS did vital signs they found his blood pressure to be elevated and his oxygen saturation to be low. They recommended transport to the hospital for evaluation. ROS: See above HPI for pertinent positives & negatives. A total of 10 systems r eviewed and were otherwise negative. PAST MEDICAL HISTORY:See Below PAST SURGICAL HISTORY:See Below FAMILY HISTORY:See Below SOCIAL HISTORY:See Below HOME MEDICATIONS:See list ALLERGIES:See list VITALS:See Below PHYSICAL EXAMINATION: HEENT: Head - normocephalic and atraumatic. Pupils are equal, round, and reactive to light. Extraocular eye muscles are intact and sclera are anicteric. Nose -dry nasal mucosa without evidence of trauma or discharge. Mouth - extremely dry buccal mucosa with no trauma to the teeth or signs of malocclusion. Neck: The Telida J collar was temporarily removed while in-line stabilization was maintained. The neck is supple and there is no pain to palpation over the posterior cervical spine and no obvious step-offs or deformities. There is no JVD or tracheal deviation. Chest: There are no signs of deformities, contusions or abrasions to the chest wall. There is no obvious crepitus or paradoxical chest rise. Heart: Regular, rate, and rhythm. There is a normal S1 and S2 with no murmurs, clicks, or gallops appreciated. Lungs: Clear to auscultation bilaterally with no wheezes, rales, or rhonchi. Abdomen: Soft, completely nontender, nondistended, with good bowel sounds. There is no sign of trauma such as contusions, abrasions or penetrations. There are no palpable pulsatile masses or hepatosplenomegaly. There is no guarding, rigidity, or rebound noted. Pelvis: Stable to rock and compression. Extremities: No obvious trauma, but the patient has significant 2-3+ edema in his legs. Neuro: The patient is awake and alert and easily able to follow commands. Muscle strength is 5 out of 5 in all 4 extremities. Otherwise, neuro exam is unremarkable. Back: The entire thoracic, lumbar, and sacral spine were palpated. There are no obvious step-offs or deformities noted. There are no obvious signs of trauma such as contusions abrasions penetrations noted to the back. ED COURSE: Times/Reassessments: 2300: Patient was evaluated in room B9. A complete history and physical was performed. An order was placed for continuous cardiac monitoring. The patient was in a normal sinus rhythm at a rate of 89 A twelve-lead EKG was obtained as described above. Laboratory studies were drawn. The patient was bolused with IV normal saline solution. 0020: I reevaluated the patient at this time. He seems to be feeling okay and asked to go to the bathroom. I discussed the case, at length, with the patient's . She is concerned for the patient safety because of increased falls. She would like to see him go to a rehab facility after having discussed the case with his surgeon in [place]. I [facility] and they will evaluate for further management. Yoselin Kirk DO Past Med/Surg History Medical History (Updated 02/07/21 @ 18:07 by Yoselin Kirk DO) Abnormal ECG Acute GI bleeding Anxiety Arthritis Atrial ectopy BPH (benign prostatic hyperplasia) Carpal tunnel syndrome Cataracts, bilateral Coronary aneurysm (2011) Dementia Diabetes Diabetes mellitus type 2 with complications Edema of both legs HTN (hypertension) Orthostatic hypotension (07/2019) Recurrent cellulitis of lower extremity Sensorineural hearing loss (SNHL) Sensorineural hearing loss (SNHL) of both ears Sepsis due to group B Streptococcus (2017) Symptomatic anemia Surgical History H/O eye surgery H/O foot surgery History of right hip replacement S/P CABG (coronary artery bypass graft) (2011) CHILDS, "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 S/P triple vessel bypass S/P wrist surgery Family History Unknown Heart disease Denies family history of Prostate cancer Social History Smoking Status: Never smoker Hx Alcohol Use: No Hx Substance Use: No Preferred Language: Tongan Communication Ability: Effective 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 Beliefs That Will Affect Care: None marital status: Current Living Situation: Spouse Feels Safe at Home: Yes Assistive Devices: Brace/Splint/Immobilizer Allergies Allergies Allergy/AdvReac Type Severity Reaction Status Date / Time YONATAN Inhibitors AdvReac Mild Cough Verified 02/06/21 23:15 Home Meds Home Medications Medication Instructions Recorded Confirmed atorvastatin 40 mg PO QAM 09/02/18 02/06/21 metformin 500 mg tablet,extended 500 mg PO QAM tab 03/05/20 02/06/21 release 24 hr amantadine HCl 100 mg capsule 100 mg PO BID 05/22/20 02/06/21 aspirin [Aspirin Low Dose] 81 mg PO DAILY 02/02/21 02/06/21 methocarbamol 750 mg PO UD PRN 02/02/21 02/06/21 oxycodone 10 mg PO UD PRN 02/02/21 02/06/21 pantoprazole 40 mg PO DAILY 02/02/21 02/06/21 Previous Rx's Medication Instructions Recorded tamsulosin 0.4 mg PO HS #90 cap 12/11/19 cephalexin 500 mg capsule 500 mg PO BID #60 cap 03/05/20 triamterene 37.5 1 tab PO DAILY #90 tab 03/05/20 mg-hydrochlorothiazide 25 mg tablet escitalopram oxalate 20 mg tablet 20 mg PO QAM #90 tab 01/11/21 Results & Data (ED) Vital Signs Vital Signs - 24 hr 02/06/21 22:58 02/06/21 23:00 02/06/21 23:19 Temperature 36.7 C Temperature Source Oral Pulse Rate 89 90 Pulse Rate from SpO2 Sensor 91 H Respiratory Rate 14 19 Respiratory Depth Normal Blood Pressure 162/83 H Blood Pressure Mean 109 Pulse Oximetry 89 L 93 94 Oxygen Delivery Method Room Air Nasal Cannula Oxygen Flow Rate 2 Sepsis Recent Fever Within 48 Hours No Sepsis New/Unexplained Change in Mental Status No Sepsis Action Taken by Nursing No Action Required 02/06/21 23:24 02/06/21 23:30 02/06/21 23:31 Temperature Temperature Source Pulse Rate 90 83 80 Pulse Rate from SpO2 Sensor 84 83 77 Respiratory Rate 16 16 14 Respiratory Depth Blood Pressure 168/77 H 149/65 H Blood Pressure Mean 107 93 Pulse Oximetry 97 95 96 Oxygen Delivery Method Oxygen Flow Rate Sepsis Recent Fever Within 48 Hours Sepsis New/Unexplained Change in Mental Status Sepsis Action Taken by Nursing 02/07/21 00:00 02/07/21 00:30 02/07/21 00:35 Temperature Temperature Source Pulse Rate 78 119 H 87 Pulse Rate from SpO2 Sensor 87 80 80 Respiratory Rate 16 20 26 H Respiratory Depth Blood Pressure 188/76 H Blood Pressure Mean 113 Pulse Oximetry 86 L 88 L 96 Oxygen Delivery Method Oxygen Flow Rate Sepsis Recent Fever Within 48 Hours Sepsis New/Unexplained Change in Mental Status Sepsis Action Taken by Nursing 02/07/21 01:00 02/07/21 01:01 02/07/21 01:30 Temperature Temperature Source Pulse Rate Pulse Rate from SpO2 Sensor 76 81 91 H Respiratory Rate 16 12 Respiratory Depth Blood Pressure 169/91 H 156/103 H Blood Pressure Mean 117 120 Pulse Oximetry 95 97 95 Oxygen Delivery Method Oxygen Flow Rate Sepsis Recent Fever Within 48 Hours Sepsis New/Unexplained Change in Mental Status Sepsis Action Taken by Nursing 02/07/21 01:31 02/07/21 02:00 02/07/21 02:01 Temperature Temperature Source Pulse Rate Pulse Rate from SpO2 Sensor 94 H 94 H 90 Respiratory Rate 25 H 17 Respiratory Depth Blood Pressure 164/85 H Blood Pressure Mean 111 Pulse Oximetry 95 98 98 Oxygen Delivery Method Oxygen Flow Rate Sepsis Recent Fever Within 48 Hours Sepsis New/Unexplained Change in Mental Status Sepsis Action Taken by Nursing Laboratory Data Result diagrams: 02/06/21 22:53 02/06/21 22:53 Lab Results 02/06/21 02/06/21 02/06/21 Range/Units 22:43 22:52 22:53 WBC 6.64 (4.8-10.8) K/uL RBC 4.51 L (4.7-6.1) M/uL Hgb 13.1 L (14.0-18.0) g/dL Hct 37.5 L (42-52) % MCV 83.1 (80-100) fL MCH 29.0 (25-34) pg MCHC 34.9 (32-36) g/dL RDW Std Deviation 57.2 H (36.4-46.3) fL RDW Coeff of Anny 18.9 H (11.5-14.5) % Plt Count 163 (130-400) K/uL MPV 8.7 (7.4-10.4) fL Immature Gran % (Auto) 1.4 % Neut % (Auto) 79.0 % Lymph % (Auto) 9.5 % [place] % (Auto) 9.0 % Eos % (Auto) 0.9 % Baso % (Auto) 0.2 % Neut # (Auto) 5.25 (1.4-6.5) K/uL Lymph # (Auto) 0.63 L (1.2-3.4) K/uL [place] # (Auto) 0.60 H (0.11-0.59) K/uL Eos # (Auto) 0.06 (0-0.5) K/uL Baso # (Auto) 0.01 (0-0.2) K/uL Immature Gran # (Auto) 0.09 H (0.00-0.02) K/uL Sodium (136-145) mmol/L Potassium (3.5-5.1) mmol/L Chloride (98-107) mmol/L Carbon Dioxide (21-32) mmol/L Anion Gap (3-11) BUN (7-18) mg/dl Creatinine (0.6-1.4) mg/dl Est Cr Clr Drug Dosing ml/min Est GFR ( Amer) Est GFR (Non-Af Amer) BUN/Creatinine Ratio (10-20) Glucose (70-99) mg/dl POC Glucose 163 H (70-99) mg/dl Calcium (8.5-10.1) mg/dl Total Bilirubin (0.2-1) mg/dl AST (15-37) U/L ALT (12-78) U/L Alkaline Phosphatase (45-117) U/L Troponin I (0-0.045) ng/ml Total Protein (6.4-8.2) gm/dl Albumin (3.4-5.0) gm/dl Globulin (2.5-4.0) gm/dl Albumin/Globulin Ratio (0.9-2) TSH (0.300-4.500) uIu/ml Specimen Hemolysis Urine Color Yellow Urine Appearance Clear (Clear) Urine pH 5.0 (4.5-7.5) Ur Specific [place] 1.026 (1.000-1.030) Urine Protein 1+ H (Negative) Urine Glucose (UA) Negative (Negative) Urine Ketones Negative (Negative) Urine Blood Negative (Negative) Urine Nitrite Negative (Negative) Urine Bilirubin Negative (Negative) Urine Urobilinogen Negative (Negative) Ur Leukocyte Esterase Negative (Negative) Urine WBC (Auto) 1-5 (0-5) /hpf Urine RBC (Auto) 0-4 (0-4) /hpf U Hyaline Cast (Auto) 5-10 H (0-5) /lpf U Epithel Cells (Auto) 5-10 H (0-5) /lpf Urine Bacteria (Auto) Negative (Negative) COVID-19 Eval Order SARS-CoV-2 (PCR) (Negative) Influenza Type A (PCR) (Neg) Influenza Type B (PCR) (Neg) RSV (RT-PCR) (Neg) 02/06/21 02/07/21 02/07/21 Range/Units 22:53 00:40 00:40 WBC (4.8-10.8) K/uL RBC (4.7-6.1) M/uL Hgb (14.0-18.0) g/dL Hct (42-52) % MCV (80-100) fL MCH (25-34) pg MCHC (32-36) g/dL RDW Std Deviation (36.4-46.3) fL RDW Coeff of Anny (11.5-14.5) % Plt Count (130-400) K/uL MPV (7.4-10.4) fL Immature Gran % (Auto) % Neut % (Auto) % Lymph % (Auto) % [place] % (Auto) % Eos % (Auto) % Baso % (Auto) % Neut # (Auto) (1.4-6.5) K/uL Lymph # (Auto) (1.2-3.4) K/uL [place] # (Auto) (0.11-0.59) K/uL Eos # (Auto) (0-0.5) K/uL Baso # (Auto) (0-0.2) K/uL Immature Gran # (Auto) (0.00-0.02) K/uL Sodium 136 (136-145) mmol/L Potassium 4.0 (3.5-5.1) mmol/L Chloride 97 L (98-107) mmol/L Carbon Dioxide 31 (21-32) mmol/L Anion Gap 8.0 (3-11) BUN 17 (7-18) mg/dl Creatinine 1.16 (0.6-1.4) mg/dl Est Cr Clr Drug Dosing 48.9 ml/min Est GFR ( Amer) 70.5 Est GFR (Non-Af Amer) 60.8 BUN/Creatinine Ratio 14.7 (10-20) Glucose 162 H (70-99) mg/dl POC Glucose (70-99) mg/dl Calcium 8.4 L (8.5-10.1) mg/dl Total Bilirubin 0.6 (0.2-1) mg/dl AST 24 (15-37) U/L ALT 22 (12-78) U/L Alkaline Phosphatase 110 (45-117) U/L Troponin I < 0.015 (0-0.045) ng/ml Total Protein 6.6 (6.4-8.2) gm/dl Albumin 3.1 L (3.4-5.0) gm/dl Globulin 3.5 (2.5-4.0) gm/dl Albumin/Globulin Ratio 0.9 (0.9-2) TSH 1.420 (0.300-4.500) uIu/ml Specimen Hemolysis Urine Color Urine Appearance (Clear) Urine pH (4.5-7.5) Ur Specific [place] (1.000-1.030) Urine Protein (Negative) Urine Glucose (UA) (Negative) Urine Ketones (Negative) Urine Blood (Negative) Urine Nitrite (Negative) Urine Bilirubin (Negative) Urine Urobilinogen (Negative) Ur Leukocyte Esterase (Negative) Urine WBC (Auto) (0-5) /hpf Urine RBC (Auto) (0-4) /hpf U Hyaline Cast (Auto) (0-5) /lpf U Epithel Cells (Auto) (0-5) /lpf Urine Bacteria (Auto) (Negative) COVID-19 Eval Order [facility]FluRsv at [facility] SARS-CoV-2 (PCR) NEGATIVE (Negative) Influenza Type A (PCR) Negative (Neg) Influenza Type B (PCR) Negative (Neg) RSV (RT-PCR) Negative (Neg) Administered Medications Amantadine HCl (Amantadine Hcl 100 Mg Capsule) 100 mg PO BID [facility] Stop: 03/09/21 08:59 Last Admin: 02/07/21 07:58 Dose: 100 mg Documented by: [id number] Aspirin (Aspirin 81 Mg Ectab) 81 mg PO DAILY [facility] Stop: 03/09/21 08:59 Last Admin: 02/07/21 07:57 Dose: 81 mg Documented by: [id number] Atorvastatin Calcium (Atorvastatin 40 Mg Tab) 40 mg PO QAM JEANETH Stop: 03/09/21 08:59 Last Admin: 02/07/21 07:58 Dose: 40 mg Documented by: [id number] Cephalexin HCl (Cephalexin 500 Mg Cap) 500 mg PO BID [facility] Stop: 03/09/21 08:59 Last Admin: 02/07/21 07:58 Dose: 500 mg Documented by: [id number] Enoxaparin Sodium (Enoxaparin Inj 40 Mg/0.4 Ml Syr) 40 mg SQ Q24H JEANETH Stop: 03/09/21 08:59 Last Admin: 02/07/21 09:56 Dose: 40 mg Documented by: [id number] Escitalopram Oxalate (Escitalopram Oxalate 20 Mg Tab) 20 mg PO QAM JEANETH Stop: 03/09/21 08:59 Last Admin: 02/07/21 07:59 Dose: 20 mg Documented by: [id number] Sodium Chloride (Nss 1000ml) 1,000 mls @ 100 mls/hr IV .Q10H JEANETH Stop: 02/08/21 00:26 Last Admin: 02/07/21 14:24 Dose: 100 mls/hr Documented by: [id number] Infusion: 02/07/21 14:24 Dose: 100 mls/hr Documented by: [id number] Admin: 02/07/21 04:48 Dose: 100 mls/hr Documented by: [id number] Insulin Aspart (Insulin Aspart 100 Units/Ml 3 Ml Pen) 0 units SC ACHS JEANETH Stop: 03/09/21 07:29 Last Admin: 02/07/21 16:41 Dose: Not Given Documented by: [id number] Cosigned by: [id number] Admin: 02/07/21 12:12 Dose: Not Given Documented by: [id number] Admin: 02/07/21 08:46 Dose: Not Given Documented by: [id number] Pantoprazole Sodium (Pantoprazole 40 Mg Tab) 40 mg PO DAILY JEANETH Stop: 03/09/21 08:59 Last Admin: 02/07/21 07:58 Dose: 40 mg Documented by: [id number] Triamterene/Hydrochlorothiazide (Triamterene/Hctz 37.5/25mg Tab) 1 tab PO DAILY JEANETH Stop: 03/09/21 08:59 Last Admin: 02/07/21 07:58 Dose: 1 tab Documented by: [id number] Discontinued Medications Sodium Chloride (Nss) 500 mls @ 999 mls/hr IV .Q31M ONE Stop: 02/06/21 23:39 Last Infusion: 02/06/21 23:52 Dose: 0 mls/hr Documented by: [id number] Admin: 02/06/21 23:20 Dose: 999 mls/hr Documented by: [id number] Imaging Data Radiologist's Impression: Chest X-Ray 02/06/21 23:09 XR chest 1V portable CLINICAL HISTORY: weakness COMPARISON STUDY: 07/07/2020 FINDINGS: The heart remains enlarged. There is aortic tortuosity/ectasia. There is no failure. There is no focal pulmonary consolidation. There are no pleural effusions. Chronic changes involve the AC joints bilaterally. There are postsurgical changes of a midline sternotomy.[ IMPRESSION: Stable cardiomegaly. No acute findings. ACT 112: Negative or not required by law. Electronically signed by: Reggie Harp M.D. 02/07/2021 8:28 AM Discharge Plan Visit Data Chief Complaint: Fall Stated Complaint: dehydration ED Provider: Yoselin Kirk Discharge Problem: Fall, Acute dehydration Patient Disposition: Admitted As Inpatient Discharge Instructions Interventions: ED Discharge Assessment Last Done: 02/07/21 03:57 Discharge Problem: Fall Qualifiers: Encounter type: initial encounter Qualified Code(s): W19.XXXA - Unspecified fall, initial encounter
[2021-02-06 23:19] LABS: Basophils # (auto) 0.01 K/uL (0-0.2); Basophils % (auto) 0.2 %; Eosinophils # (auto) 0.06 K/uL (0-0.5); Eosinophils % (auto) 0.9 %; Hematocrit (blood only) 37.5 % (42-52); Hemoglobin 13.1 g/dL (14.0-18.0); Immature Granulocytes # (auto) 0.09 K/uL (0.00-0.02); Immature Granulocytes % (auto) 1.4 %; Lymphocytes # (auto) 0.63 K/uL (1.2-3.4); Lymphocytes % (auto) 9.5 %; Mean Corpuscular Hgb Conc 34.9 g/dL (32-36); Mean Corpuscular Volume 83.1 fL (80-100); Mean Platelet Volume 8.7 fL (7.4-10.4); Neutrophils # (auto) 5.25 K/uL (1.4-6.5); Platelet Count 163 K/uL (130-400); RDW Coefficient of Variation 18.9 % (11.5-14.5); RDW Standard Deviation 57.2 fL (36.4-46.3); Red Blood Count 4.51 M/uL (4.7-6.1); White Blood Count 6.64 K/uL (4.8-10.8)
[2021-02-06 23:33] LABS: Alanine Aminotransferase 22 U/L (12-78); Albumin Level 3.1 gm/dl (3.4-5.0); Aspartate Aminotransferase 24 U/L (15-37); BUN Creatinine Ratio 14.7 (10-20); Blood Urea Nitrogen 17 mg/dl (7-18); Calcium 8.4 mg/dl (8.5-10.1); Carbon Dioxide 31 mmol/L (21-32); Chloride 97 mmol/L (98-107); Creatinine Clr Calc Pharmacy 48.9 ml/min; Est GFR (African American) 70.5; Est GFR (Non-African American) 60.8; Glucose 162 mg/dl (70-99); Sodium 136 mmol/L (136-145)
[2021-02-06 23:48] LABS: Albumin Globulin Ratio 0.9 (0.9-2); Alkaline Phosphatase 110 U/L (45-117); Bilirubin,Total 0.6 mg/dl (0.2-1); Globulin 3.5 gm/dl (2.5-4.0); Total Protein 6.6 gm/dl (6.4-8.2); Troponin I < 0.015 ng/ml (0-0.045)
[2021-02-06 23:52] LABS: Appearance Urine Clear (Clear); Bacteria Urine Automated Negative (Negative); Bilirubin Urine Negative (Negative); Blood Urine Negative (Negative); Color Urine Yellow; Glucose Urine UA Negative (Negative); Ketones Urine Negative (Negative); Leukocyte Esterase Urine Negative (Negative); Nitrite Urine Negative (Negative); Protein Urine 1+ (Negative); RBC Urine Automated 0-4 /hpf (0-4); Specific Gravity Urine 1.026 (1.000-1.030); Urobilinogen Urine Negative (Negative)
[2021-02-07 01:32] LABS: Influenza A virus by PCR Negative (Neg); Influenza B virus by PCR Negative (Neg); RSV by PCR Negative (Neg); SARS CoV2 RNA(COVID-19) InHosp NEGATIVE (Negative)
--- NOTE | 2021-02-07 03:01 | History and Physical Report ---
DATE OF ADMISSION: 02/07/2021 CHIEF COMPLAINT: Fall. HISTORY OF PRESENT ILLNESS: This is a 75-year-old male with past medical history significant for CAD, status post CABG, hypertension, hyperlipidemia, history of ascending aortic aneurysm, cerebral aneurysm, mitral valve prolapse with moderate MR and mild AI, hypertension, type 2 diabetes, peripheral artery disease, anemia, Parkinson's disease, chronic kidney disease stage III, BPH, primary osteoarthritis of both knees, dementia associated with Parkinson's disease. Recently had neck surgery at [facility], comes with falls at home. The patient was in the ER on 02/02/2021 also for the right-sided neck pain and there is a plan to transfer to [place], but the MRI was done here and after discussing MRI results with his neurosurgeon, Dr. Bates at [facility], advised to follow as outpatient and follow with pain clinic. The patient lives at home with his . Today patient fell at home. Family thinks he is not eating much and drinking much because of pain in the neck and is getting dehydrated. He has a [place] J collar. Because of that, he became weak and falling down frequently. EMS was called to assist to lift the patient, but the EMS found his blood pressure was elevated and his oxygen saturation was noted to be low and he was brought into the hospital. His initial oxygen was 88%, but on 2 liters currently saturating in high 90s, resting comfortably, alert and awake, able to answer questions. Able to move his extremities. His COVID is negative. Chest x-ray shows cardiomegaly, but otherwise no acute findings. Afebrile. The patient denies any chest pain, denies any abdominal pain. No nausea, no cough. Has some headache and neck pain. No fevers, but feeling chills. He is constipated. Normal bladder movements. Appetite is down. Not eating much as per the . okay for the placement. ALLERGIES: YONATAN INHIBITORS AND NSAIDS. PAST MEDICAL HISTORY: As mentioned above. PAST SURGICAL HISTORY: C-spine surgery, carpal tunnel surgery, colonoscopy, cataract surgery, tonsillectomy, adenoidectomy, right hip replacement. MEDICATIONS: Amantadine 100 mg p.o. b.i.d., aspirin 81 mg p.o. daily, atorvastatin 40 mg p.o. a.m., cephalexin 500 mg p.o. b.i.d., Lexapro 20 mg p.o. a.m., metformin 500 mg p.o. a.m., methocarbamol 750 mg p.r.n., oxycodone 10 mg p.r.n., Protonix 40 mg p.o. daily, Flomax 0.4 mg p.o. at bedtime, triamterene/hydrochlorothiazide 37.5/25 mg p.o. daily. FAMILY HISTORY: Significant for father has hypertension and stroke; mother has CAD, COPD; daughter has bipolar disorder, asthma. SOCIAL HISTORY: Lives with his . No smoking, no alcohol, no drug use. REVIEW OF SYSTEMS: As per HPI. Rest of the review of systems negative. PHYSICAL EXAMINATION: GENERAL: The patient is of moderate build, not in acute distress. VITAL SIGNS: Temperature 36.7, pulse 78, respiratory rate 20, blood pressure 114/65, oxygen currently 98% on 2 liters. HEENT: Pupils equal, round, reactive to light. Oral mucosa dry. NECK: Is in [place] J collar. CARDIOVASCULAR: S1, S2 heard. Regular rate and rhythm, no murmur, no gallop. RESPIRATORY SYSTEM: Normal AP diameter. No accessory muscle use. No wheezing, no crackles. ABDOMEN: Soft, bowel sounds present, nontender. No distention. CENTRAL NERVOUS SYSTEM: Cranial nerves II-XII grossly intact. Alert and awake. Speech is clear. Obeys commands. Power 5/5 in all extremities. EXTREMITIES: No edema, no erythema. LABORATORY DATA: WBC 6.6, hemoglobin 13.1, hematocrit 37.5, platelets 163. Sodium 136, potassium 4, chloride 97, bicarbonate 31, BUN 17, creatinine 1.1, serum glucose 162, calcium 8.4, total bilirubin 0.6, AST 24, ALT 22, alkaline phosphatase 110. Troponin I less than 0.015. TSH 1.4. Urinalysis negative. SARS-CoV-2 PCR negative. Influenza A and B PCR negative. RSV PCR negative. IMAGING DATA: Chest x-ray, cardiomegaly, no acute findings. EKG: Sinus rhythm with PACs at a rate of 89, left axis deviation, incomplete right bundle branch block. ASSESSMENT AND PLAN: This is a 75-year-old male who presents with frequent falls at home and possible dehydration. 1. Frequent falls possibly secondary to dehydration: We will check orthostatics. The patient is on [place] neck collar. Recently had neck surgery at [facility]. Since then, having lot of pain and not eating and drinking because of pain, poor appetite. He was in the ER on 02/02/2021 for severe neck pain and cervical MRI scan was done. No significant findings were found. Plan for keeping the patient for hydration with IV normal saline 100 mL per hour for 2 bags. PT, OT. Social service to help with discharge planning. Pain control. 2. Coronary artery disease status post coronary artery bypass graft: Continue his home medications of aspirin and statin. Follows with cardiology. 3. Gastroesophageal reflux disease. Continue Protonix. 4. Benign prostatic hypertrophy: Continue Flomax. 5. Diabetes: Hold metformin. Placed him on sliding scale. Follow the blood sugars. Follow the HbA1c. 6. History of recurrent cellulitis, on chronic Keflex. 7. Depression: On Lexapro. 8. Parkinson's and dementia from Parkinson's, on amantadine. Monitor for delirium. 9. Hypertension: On triamterene/hydrochlorothiazide. Will monitor the blood pressure. 10. Hypoxia: Mostly could be from the pain. Will monitor. 11. Deep venous thrombosis prophylaxis: Lovenox. DISPOSITION: Closely monitor in the med tele. Level 1 full code as per my discussion with the . PT and OT prior to discharge. Social service to help with discharge planning. MATHER HOSPITALJules
[2021-02-07] MEDS ORDERED: METHOCARBAMOL 750 MG TABLET PO PRN (04:27)
[2021-02-07] MEDS ORDERED: ACETAMINOPHEN 325 MG TAB PO PRN (04:27)
[2021-02-07] MEDS ORDERED: POLYETHYLENE (MIRALAX) 17 GM PACK PO PRN (04:27)
[2021-02-07] MEDS ORDERED: NITROGLYCERIN SL 0.4 MG/TAB TAB SL PRN (04:27)
[2021-02-07] MEDS ORDERED: ONDANSETRON INJ 2 MG/ML 2 ML VIAL IV PRN (04:27)
[2021-02-07] MEDS ORDERED: DEXTROSE 50% 50 ML SYRINGE IV PRN (04:45)
[2021-02-07] MEDS ORDERED: CARBOHYDRATES FOR HYPOGLYCEMIA PO PRN (04:45)
[2021-02-07] MEDS ORDERED: GLUCAGON FOR INJ 1 MG VIAL SQ PRN (04:45)
[2021-02-07] MEDS ORDERED: GLUCOSE 40% GEL 15 GM TUBE PO PRN (04:45)
[2021-02-07] MEDS ORDERED: GLUCOSE 10 TABS/TUBE PO PRN (04:45)
[2021-02-07] MEDS: SODIUM CHLORIDE 0.9% 1000ML 1,000 ML IV SCH ×2 (04:48→14:24)
[2021-02-07] MEDS: ASPIRIN 81 MG ECTAB PO SCH (07:57)
[2021-02-07] MEDS: AMANTADINE HCL 100 MG CAPSULE PO SCH ×2 (07:58→20:34)
[2021-02-07] MEDS: PANTOprazole 40 MG TAB PO SCH (07:58)
[2021-02-07] MEDS: cephALEXin 500 MG CAP PO SCH ×2 (07:58→20:33)
[2021-02-07] MEDS: TRIAMTERENE/HCTZ 37.5/25MG TAB PO SCH (07:58)
[2021-02-07] MEDS: ATORVASTATIN 40 MG TAB PO SCH (07:58)
[2021-02-07] MEDS: ESCITALOPRAM OXALATE 20 MG TAB PO SCH (07:59)
[2021-02-07 08:20] LABS: Prothrombin Time 10.5 Seconds (9.0-12.0)
--- NOTE | 2021-02-07 08:29 | XRay Report ---
XR chest 1V portable CLINICAL HISTORY: weakness COMPARISON STUDY: 07/07/2020 FINDINGS: The heart remains enlarged. There is aortic tortuosity/ectasia. There is no failure. There is no focal pulmonary consolidation. There are no pleural effusions. Chronic changes involve the AC j oints bilaterally. There are postsurgical changes of a midline sternotomy.[ IMPRESSION: Stable cardiomegaly. No acute findings. ACT 112: Negative or not required by law. Electronically signed by: Reggie Harp M.D. 02/07/2021 8:28 AM
[2021-02-07] MEDS: INSULIN ASPART 100 UNITS/ML 3 ML PEN SC SCH ×4 (08:46→20:34)
[2021-02-07] MEDS: ENOXAPARIN INJ 40 MG/0.4 ML SYR SQ SCH (09:56)
--- NOTE | 2021-02-07 13:06 | Electrocardiogram Report ---
Test Reason : Blood Pressure : / mmHG Vent. Rate : 089 BPM Atrial Rate : 089 BPM P-R Int : 200 ms QRS Dur : 092 ms QT Int : 332 ms P-R-T Axes : 094 -52 107 degrees QTc Int : 403 ms Sinus rhythm with Premature atrial complexes Left axis deviation Incomplete right bundle branch block Possible Anterior infarct , age undetermined Abnormal ECG When compared with ECG of 16-JUL-2020 14:00, Premature atrial complexes are now Present Borderline criteria for Anterior infarct are now Present Nonspecific T wave abnormality no longer evident in Inferior leads Confirmed by Jw Ward [id number] on 02/07/2021 1:06:05 PM Referred By: REFERRED SELF Confirmed By:Eduar Ward
[2021-02-07] MEDS: TAMSULOSIN HCL 0.4 MG CAP PO SCH (20:34)
[2021-02-07] MEDS: oxyCODONE HCL IR 5 MG TAB (IMMEDIATE RELEASE) PO PRN (20:38)
[2021-02-08] MEDS: oxyCODONE HCL IR 5 MG TAB (IMMEDIATE RELEASE) PO PRN ×4 (01:43→20:40)
[2021-02-08 05:48] LABS: Basophils # (auto) 0.01 K/uL (0-0.2); Basophils % (auto) 0.2 %; Eosinophils # (auto) 0.06 K/uL (0-0.5); Eosinophils % (auto) 1.2 %; Hemoglobin 12.4 g/dL (14.0-18.0); Immature Granulocytes # (auto) 0.08 K/uL (0.00-0.02); Immature Granulocytes % (auto) 1.5 %; Lymphocytes # (auto) 0.59 K/uL (1.2-3.4); Lymphocytes % (auto) 11.4 %; Mean Corpuscular Hemoglobin 28.4 pg (25-34); Mean Corpuscular Hgb Conc 33.5 g/dL (32-36); Mean Corpuscular Volume 84.9 fL (80-100); Mean Platelet Volume 8.3 fL (7.4-10.4); Monocytes % (auto) 11.6 %; Neutrophils # (auto) 3.83 K/uL (1.4-6.5); Neutrophils % (auto) 74.1 %; Platelet Count 148 K/uL (130-400); RDW Coefficient of Variation 18.9 % (11.5-14.5); RDW Standard Deviation 58.1 fL (36.4-46.3); Red Blood Count 4.36 M/uL (4.7-6.1); White Blood Count 5.17 K/uL (4.8-10.8)
[2021-02-08 06:16] LABS: Estimated Average Glucose 148 mg/dl; Hemoglobin A1C 6.8 % (4.5-5.6)
[2021-02-08 06:20] LABS: BUN Creatinine Ratio 13.8 (10-20); Calcium 8.3 mg/dl (8.5-10.1); Creatinine Clr Calc Pharmacy 59.3 ml/min; Est GFR (African American) 85.4; Est GFR (Non-African American) 73.7; Potassium 3.3 mmol/L (3.5-5.1)
[2021-02-08] MEDS: cephALEXin 500 MG CAP PO SCH ×2 (07:37→20:40)
[2021-02-08] MEDS: PANTOprazole 40 MG TAB PO SCH (07:37)
[2021-02-08] MEDS: AMANTADINE HCL 100 MG CAPSULE PO SCH ×2 (07:37→20:40)
[2021-02-08] MEDS: TRIAMTERENE/HCTZ 37.5/25MG TAB PO SCH (07:37)
[2021-02-08] MEDS: ESCITALOPRAM OXALATE 20 MG TAB PO SCH (07:38)
[2021-02-08] MEDS: ENOXAPARIN INJ 40 MG/0.4 ML SYR SQ SCH (07:38)
[2021-02-08] MEDS: ATORVASTATIN 40 MG TAB PO SCH (07:38)
[2021-02-08] MEDS: ASPIRIN 81 MG ECTAB PO SCH (07:38)
[2021-02-08] MEDS: INSULIN ASPART 100 UNITS/ML 3 ML PEN SC SCH ×4 (08:26→20:22)
[2021-02-08] MEDS ORDERED: amLODIPine BESYLATE 5 MG TAB PO ONE (08:45)
--- NOTE | 2021-02-08 14:27 | Hospitalist Progress Note ---
Date of Service February 08, 2021 Assessment & Plan (1) Acute neck pain: Status post [facility] 7 to 10 days ago Has a cervical collar/neck brace on Complains neck pain but was advised to keep the neck brace on until being evaluated by them on 24 of this month Does not have any radiculopathy We will give pain medications as needed (2) Fall: Has been falling at home May be contributed by neck pain on top of dehydration Got intravenous fluid PT OT evaluation PT recommended rehab (3) Acute dehydration: Received intravenous fluid Advised to drink more fluid (4) 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 (5) Parkinsonism: No acute findings (6) S/P CABG (coronary artery bypass graft): Denies any cardiac symptoms Continue current medications (7) HTN (hypertension): Blood pressure has been high since admission Will start Norvasc's and monitor DVT prophylaxis Subcu Lovenox CODE STATUS Full Admission and Anticipated Discharge Date Admission Date: February 07, 2021 Subjective 02/08/2021 The patient was seen and examined in medical telemetry unit He was admitted with ambulatory dysfunction with recent neck surgeon in [place] He was noted to be dehydrated Still complains to have some neck pain but denies any other significant symptoms Review of Systems Review of Systems: All systems reviewed and are unremarkable except as noted below Musculoskeletal: + neck pain (Has a neck brace in situ) Physical Exam Physical Exam: Sitting on a chair with some discomfort in the neck Constitutional: well developed, well nourished, + ill appearing and + obese Eyes: PERRL, conjunctivae normal, anicteric sclerae ENMT: external ear and nose normal, oropharynx normal Neck: Has a cervical collar/neck brace in situ Respiratory: no respiratory distress Auscultation: lungs clear to auscultation bilaterally Cardiovascular: Rate/Rhythm: regular rate and regular rhythm Heart Sounds: no murmur Extremities: + edema (Trace edema bilaterally) Gastrointestinal (Abdomen): Inspection/Auscultation: normal bowel sounds; abdomen not distended Percussion/Palpation: abdomen soft; abdomen nontender Musculoskeletal: Has significant neck pain but no other acute arthritis Neurologic: Alert, awake and oriented x3 Lymphatic: no cervical or axillary lymphadenopathy Results & Data Results & Data ([facility]) Vital Signs (Past 12 Hours) Vital Signs Temp Pulse Pulse Resp BP BP Pulse Ox 02/08/21 12:11 36.5 C 83 18 186/71 H 96 02/08/21 08:30 106 H 02/08/21 08:27 36.8 C 91 H 20 188/83 H 91 02/08/21 03:48 36.6 C 66 18 168/71 H 98 Laboratory Results Short CBC 02/08/21 Range/Units 05:35 WBC 5.17 (4.8-10.8) K/uL Hgb 12.4 L (14.0-18.0) g/dL Hct 37.0 L (42-52) % Plt Count 148 (130-400) K/uL BMP 02/08/21 05:35 Sodium 139 Potassium 3.3 L D Chloride 101 Carbon Dioxide 32 BUN 14 Creatinine 0.99 Glucose 119 H Calcium 8.3 L Medications Administered Current Inpatient Medications Acetaminophen (Acetaminophen 325 Mg Tab) 650 mg PO Q4H PRN PRN Reason: Pain or Fever Stop: 03/09/21 04:26 Amantadine HCl (Amantadine Hcl 100 Mg Capsule) 100 mg PO BID JEAN[facility] Stop: 03/09/21 08:59 Last Admin: 02/08/21 07:37 Dose: 100 mg Documented by: Amlodipine Besylate (Amlodipine Besylate 5 Mg Tab) 5 mg PO QAM [facility] Stop: 03/11/21 08:59 Aspirin (Aspirin 81 Mg Ectab) 81 mg PO DAILY JEANETH Stop: 03/09/21 08:59 Last Admin: 02/08/21 07:38 Dose: 81 mg Documented by: Atorvastatin Calcium (Atorvastatin 40 Mg Tab) 40 mg PO QAM [facility] Stop: 03/09/21 08:59 Last Admin: 02/08/21 07:38 Dose: 40 mg Documented by: Cephalexin HCl (Cephalexin 500 Mg Cap) 500 mg PO BID JEANETH Stop: 03/09/21 08:59 Last Admin: 02/08/21 07:37 Dose: 500 mg Documented by: Dextrose (Dextrose 50% 50 Ml Syringe) 25 - 50 ml IV UD PRN; Protocol PRN Reason: Hypoglycemia Protocol Stop: 03/09/21 04:44 Enoxaparin Sodium (Enoxaparin Inj 40 Mg/0.4 Ml Syr) 40 mg SQ Q24H [facility]AN[facility] Stop: 03/09/21 08:59 Last Admin: 02/08/21 07:38 Dose: 40 mg Documented by: Escitalopram Oxalate (Escitalopram Oxalate 20 Mg Tab) 20 mg PO QAM [facility] Stop: 03/09/21 08:59 Last Admin: 02/08/21 07:38 Dose: 20 mg Documented by: Glucagon (Glucagon For Inj 1 Mg Vial) 1 mg SQ UD PRN; Protocol PRN Reason: Hypoglycemia Protocol Stop: 03/09/21 04:44 Glucose (Glucose 40% Gel 15 Gm Tube) 15 - 30 gm PO UD PRN; Protocol PRN Reason: Hypoglycemia Protocol Stop: 03/09/21 04:44 Glucose (Glucose 10 Tabs/Tube) 4 - 8 tabs PO UD PRN; Protocol PRN Reason: Hypoglycemia Protocol Stop: 03/09/21 04:44 Insulin Aspart (Insulin Aspart 100 Units/Ml 3 Ml Pen) 0 units SC ACHS [facility] Stop: 03/09/21 07:29 Last Admin: 02/08/21 12:08 Dose: Not Given Documented by: Methocarbamol (Methocarbamol 750 Mg Tablet) 750 mg PO Q6H PRN PRN Reason: Unknown Stop: 03/09/21 04:26 Miscellaneous (Carbohydrates For Hypoglycemia ) 15 - 30 gm PO UD PRN PRN Reason: Hypoglycemia Treatment Stop: 03/09/21 04:44 Nitroglycerin (Nitroglycerin Sl 0.4 Mg/Tab Tab) 0.4 mg SL UD PRN PRN Reason: Chest Pain Stop: 03/09/21 04:26 Ondansetron HCl (Ondansetron Inj 2 Mg/Ml 2 Ml Vial) 4 mg IV Q6H PRN PRN Reason: Nausea Stop: 03/09/21 04:26 Oxycodone HCl (Oxycodone Hcl Ir 5 Mg Tab (Immediate Release)) 5 mg PO Q4H PRN PRN Reason: Pain Stop: 02/21/21 04:26 Last Admin: 02/08/21 13:35 Dose: 5 mg Documented by: Pantoprazole Sodium (Pantoprazole 40 Mg Tab) 40 mg PO DAILY [facility] Stop: 03/09/21 08:59 Last Admin: 02/08/21 07:37 Dose: 40 mg Documented by: Polyethylene Glycol (Polyethylene (Miralax) 17 Gm Pack) 17 gm PO DAILY PRN PRN Reason: Constipation Stop: 03/09/21 04:26 Tamsulosin HCl (Tamsulosin Hcl 0.4 Mg Cap) 0.4 mg PO HS JEANETH Stop: 03/09/21 20:59 Last Admin: 02/07/21 20:34 Dose: 0.4 mg Documented by: Triamterene/Hydrochlorothiazide (Triamterene/Hctz 37.5/25mg Tab) 1 tab PO DAILY JEANETH Stop: 03/09/21 08:59 Last Admin: 02/08/21 07:37 Dose: 1 tab Documented by: (1) Fall Encounter type: initial encounter Qualified Code(s): W19.XXXA - Unspecified fall, initial encounter (2) HTN (hypertension) Hypertension type: unspecified Qualified Code(s): I10 - Essential (primary) hypertension
[2021-02-08] MEDS: TAMSULOSIN HCL 0.4 MG CAP PO SCH (20:40)
[2021-02-09] MEDS: oxyCODONE HCL IR 5 MG TAB (IMMEDIATE RELEASE) PO PRN ×4 (01:45→21:31)
[2021-02-09] MEDS: ASPIRIN 81 MG ECTAB PO SCH (07:23)
[2021-02-09] MEDS: AMANTADINE HCL 100 MG CAPSULE PO SCH ×2 (07:23→21:27)
[2021-02-09] MEDS: PANTOprazole 40 MG TAB PO SCH (07:24)
[2021-02-09] MEDS: ESCITALOPRAM OXALATE 20 MG TAB PO SCH (07:24)
[2021-02-09] MEDS: ATORVASTATIN 40 MG TAB PO SCH (07:24)
[2021-02-09] MEDS: TRIAMTERENE/HCTZ 37.5/25MG TAB PO SCH (07:24)
[2021-02-09] MEDS: cephALEXin 500 MG CAP PO SCH ×2 (07:24→21:27)
[2021-02-09] MEDS: amLODIPine BESYLATE 5 MG TAB PO SCH (07:25)
[2021-02-09] MEDS: INSULIN ASPART 100 UNITS/ML 3 ML PEN SC SCH ×5 (08:06→21:28)
[2021-02-09] MEDS ORDERED: POTASSIUM CHLORIDE CRTAB 20 MEQ TABCR PO STA (08:17)
[2021-02-09 11:24] LABS: Appearance Urine Clear (Clear); Bacteria Urine Automated Negative (Negative); Bilirubin Urine Negative (Negative); Blood Urine Negative (Negative); Color Urine Yellow; Glucose Urine UA Negative (Negative); Ketones Urine Negative (Negative); Leukocyte Esterase Urine Negative (Negative); Nitrite Urine Negative (Negative); Protein Urine 2+ (Negative); RBC Urine Automated 0-4 /hpf (0-4); Specific Gravity Urine 1.019 (1.000-1.030); Urobilinogen Urine Negative (Negative)
--- NOTE | 2021-02-09 11:44 | Hospitalist Progress Note ---
Date of Service February 09, 2021 Assessment & Plan (1) Acute neck pain: Status post neck surgery at [facility] around 7 to 10 days ago Has a cervical collar/neck brace on Complains neck pain but was advised to keep the neck brace on until being evaluated by them on 24 of this month Does not have any radiculopathy We will give pain medications as needed He was strongly advised to keep appointment with the neurosurgeon in [place] Likely discharge this afternoon (2) Fall: Has been falling at home May be contributed by neck pain on top of dehydration Got intravenous fluid PT OT evaluation Initially PT recommended for rehab and as of yesterday it was mentioned that he can go home with home PT Awaiting further evaluation today (3) Acute dehydration: Received intravenous fluid Advised to drink more fluid (4) 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 (5) Parkinsonism: No acute findings (6) S/P CABG (coronary artery bypass graft): Denies any cardiac symptoms Continue current medications (7) HTN (hypertension): Blood pressure has been high since admission Will start Norvasc and monitor Blood pressure is noted to be high likely contributed by increasing pain in the neck as he believes We will continue amlodipine as an outpatient DVT prophylaxis Subcu Lovenox CODE STATUS Full Admission and Anticipated Discharge Date Admission Date: February 07, 2021 Subjective 02/08/2021 The patient was seen and examined in medical telemetry unit He was admitted with ambulatory dysfunction with recent neck surgeon in [place] He was noted to be dehydrated Still complains to have some neck pain but denies any other significant symptoms 02/09/2021 The patient was seen and examined in medical telemetry unit He still complains to have some neck pain and his blood pressure is is noted to be high Denies any headache, palpitation, chest pain and/or shortness of breath Denies any problem with his urine Review of Systems Review of Systems: All systems reviewed and are unremarkable except as noted below Musculoskeletal: + neck pain (Has a neck brace in situ) Physical Exam Physical Exam: Sitting on a chair with some discomfort in the neck Constitutional: well developed, well nourished, + ill appearing and + obese Eyes: PERRL, conjunctivae normal, anicteric sclerae ENMT: external ear and nose normal, oropharynx normal Respiratory: no respiratory distress Auscultation: lungs clear to auscultation bilaterally Cardiovascular: Rate/Rhythm: regular rate and regular rhythm Heart Sounds: no murmur Extremities: + edema (Trace edema bilaterally) Gastrointestinal (Abdomen): Inspection/Auscultation: normal bowel sounds; abdomen not distended Percussion/Palpation: abdomen soft; abdomen nontender Musculoskeletal: He does not have any acute arthritis involving any other joints except the problem with the neck that has been ongoing Neurologic: Alert, awake and oriented x3 Lymphatic: no cervical or axillary lymphadenopathy Results & Data Results & Data ([facility]) Vital Signs (Past 12 Hours) Vital Signs Temp Pulse Pulse Resp BP Pulse Ox 02/09/21 07:58 36.7 C 65 19 194/93 H 90 02/09/21 04:00 36.5 C 71 18 161/94 H 95 02/09/21 00:09 89 Laboratory Results Urine 02/09/21 Range/Units 11:05 Urine Color Yellow Urine Appearance Clear (Clear) Urine pH 6.0 (4.5-7.5) Ur Specific [place] 1.019 (1.000-1.030) Urine Protein 2+ H (Negative) Urine Glucose (UA) Negative (Negative) Medications Administered Current Inpatient Medications Acetaminophen (Acetaminophen 325 Mg Tab) 650 mg PO Q4H PRN PRN Reason: Pain or Fever Stop: 03/09/21 04:26 Amantadine HCl (Amantadine Hcl 100 Mg Capsule) 100 mg PO BID [facility] Stop: 03/09/21 08:59 Last Admin: 02/09/21 07:23 Dose: 100 mg Documented by: Amlodipine Besylate (Amlodipine Besylate 5 Mg Tab) [facility] [place] [facility] Stop: 03/11/21 08:59 Last Admin: 02/09/21 07:25 Dose: 5 mg Documented by: Aspirin (Aspirin 81 Mg Ectab) 81 mg PO DAILY JEANETH Stop: 03/09/21 08:59 Last Admin: 02/09/21 07:23 Dose: 81 mg Documented by: Atorvastatin Calcium (Atorvastatin 40 Mg Tab) 40 mg PO QAM [facility] Stop: 03/09/21 08:59 Last Admin: 02/09/21 07:24 Dose: 40 mg Documented by: Cephalexin HCl (Cephalexin 500 Mg Cap) 500 mg PO BID [facility] Stop: 03/09/21 08:59 Last Admin: 02/09/21 07:24 Dose: 500 mg Documented by: Dextrose (Dextrose 50% 50 Ml Syringe) 25 - 50 ml IV UD PRN; Protocol PRN Reason: Hypoglycemia Protocol Stop: 03/09/21 04:44 Enoxaparin Sodium (Enoxaparin Inj 40 Mg/0.4 Ml Syr) 40 mg SQ Q24H [facility] Stop: 03/09/21 08:59 Last Admin: 02/08/21 07:38 Dose: 40 mg Documented by: Escitalopram Oxalate (Escitalopram Oxalate 20 Mg Tab) 20 mg PO QAM [facility]AN[facility] Stop: 03/09/21 08:59 Last Admin: 02/09/21 07:24 Dose: 20 mg Documented by: Glucagon (Glucagon For Inj 1 Mg Vial) 1 mg SQ UD PRN; Protocol PRN Reason: Hypoglycemia Protocol Stop: 03/09/21 04:44 Glucose (Glucose 40% Gel 15 Gm Tube) 15 - 30 gm PO UD PRN; Protocol PRN Reason: Hypoglycemia Protocol Stop: 03/09/21 04:44 Glucose (Glucose 10 Tabs/Tube) 4 - 8 tabs PO UD PRN; Protocol PRN Reason: Hypoglycemia Protocol Stop: 03/09/21 04:44 Insulin Aspart (Insulin Aspart 100 Units/Ml 3 Ml Pen) 0 units SC ACHS [facility] Stop: 03/09/21 07:29 Last Admin: 02/09/21 08:54 Dose: Not Given Documented by: Methocarbamol (Methocarbamol 750 Mg Tablet) 750 mg PO Q6H PRN PRN Reason: Unknown Stop: 03/09/21 04:26 Miscellaneous (Carbohydrates For Hypoglycemia ) 15 - 30 gm PO UD PRN PRN Reason: Hypoglycemia Treatment Stop: 03/09/21 04:44 Nitroglycerin (Nitroglycerin Sl 0.4 Mg/Tab Tab) 0.4 mg SL UD PRN PRN Reason: Chest Pain Stop: 03/09/21 04:26 Ondansetron HCl (Ondansetron Inj 2 Mg/Ml 2 Ml Vial) 4 mg IV Q6H PRN PRN Reason: Nausea Stop: 03/09/21 04:26 Oxycodone HCl (Oxycodone Hcl Ir 5 Mg Tab (Immediate Release)) 5 mg PO Q4H PRN PRN Reason: Pain Stop: 02/21/21 04:26 Last Admin: 02/09/21 08:05 Dose: 5 mg Documented by: Pantoprazole Sodium (Pantoprazole 40 Mg Tab) 40 mg PO DAILY JEANETH Stop: 03/09/21 08:59 Last Admin: 02/09/21 07:24 Dose: 40 mg Documented by: Polyethylene Glycol (Polyethylene (Miralax) 17 Gm Pack) 17 gm PO DAILY PRN PRN Reason: Constipation Stop: 03/09/21 04:26 Tamsulosin HCl (Tamsulosin Hcl 0.4 Mg Cap) 0.4 mg PO HS JEANETH Stop: 03/09/21 20:59 Last Admin: 02/08/21 20:40 Dose: 0.4 mg Documented by: Triamterene/Hydrochlorothiazide (Triamterene/Hctz 37.5/25mg Tab) 1 tab PO DAILY [facility]ANETH Stop: 03/09/21 08:59 Last Admin: 02/09/21 07:24 Dose: 1 tab Documented by: (1) Fall Encounter type: initial encounter Qualified Code(s): W19.XXXA - Unspecified fall, initial encounter (2) HTN (hypertension) Hypertension type: unspecified Qualified Code(s): I10 - Essential (primary) hypertension
[2021-02-09] MEDS: ENOXAPARIN INJ 40 MG/0.4 ML SYR SQ SCH (12:57)
[2021-02-09] MEDS: TAMSULOSIN HCL 0.4 MG CAP PO SCH (21:27)
[2021-02-10] MEDS ORDERED: HYDROmorphone INJ 0.5 MG/0.5 ML SYR IV STA (00:48)
[2021-02-10] MEDS ORDERED: HYDROmorphone INJ 0.5 MG/0.5 ML SYR ONE (00:56)
[2021-02-10] MEDS: ENOXAPARIN INJ 40 MG/0.4 ML SYR SQ SCH (08:05)
[2021-02-10] MEDS: TRIAMTERENE/HCTZ 37.5/25MG TAB PO SCH (08:05)
[2021-02-10] MEDS: amLODIPine BESYLATE 5 MG TAB PO SCH (08:05)
[2021-02-10] MEDS: ESCITALOPRAM OXALATE 20 MG TAB PO SCH (08:05)
[2021-02-10] MEDS: AMANTADINE HCL 100 MG CAPSULE PO SCH ×2 (08:06→20:35)
[2021-02-10] MEDS: ATORVASTATIN 40 MG TAB PO SCH (08:06)
[2021-02-10] MEDS: PANTOprazole 40 MG TAB PO SCH (08:06)
[2021-02-10] MEDS: cephALEXin 500 MG CAP PO SCH ×2 (08:07→20:35)
[2021-02-10] MEDS: ASPIRIN 81 MG ECTAB PO SCH (08:07)
[2021-02-10] MEDS: INSULIN ASPART 100 UNITS/ML 3 ML PEN SC SCH ×4 (08:08→20:35)
[2021-02-10] MEDS: oxyCODONE HCL IR 5 MG TAB (IMMEDIATE RELEASE) PO PRN (10:54)
[2021-02-10] MEDS ORDERED: hydrALAZINE HCL 20 MG/ML VIAL IV PRN (16:08)
--- NOTE | 2021-02-10 16:08 | Hospitalist Progress Note ---
Date of Service February 10, 2021 Assessment & Plan (1) Acute neck pain: Status post neck surgery at [facility] [place] around 7 to 10 days ago Has a cervical collar/neck brace on Pain continues to be an issue. Currently awaiting placement to rehab. She has follow-up appointment with [facility] on . (2) Fall: Continue to work with the PT/OT Currently awaiting placement. 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 Continue with amlodipine. DVT prophylaxis Subcu Lovenox CODE STATUS Full Admission and Anticipated Discharge Date Admission Date: February 07, 2021 Subjective Doing okay this morning. Although neck pain is the primary issue. Rest of the review of system is negative. Review of Systems Review of Systems: All systems reviewed & are unremarkable except as noted in HPI & below Physical Exam Physical Exam: General: A&Ox3 HENT: NCAT, MMM, EOMI Eyes: PERRLA Neck: Neck collar in place CVS: normal rate and rhythm Resp: b/l breath sound Abdomen: Soft, ND/NT, +BS Extremities: No c/c/e Neuro: Absence of any focal deficit Skin: warm and dry, no rashes/lesions/errythema MSK: normal ROM, no joint swelling/erythema Results & Data Results & Data ([facility]) Vital Signs (Past 12 Hours) Vital Signs Temp Pulse Pulse Resp BP BP Pulse Ox 02/10/21 15:08 36.4 C L 91 H 20 180/81 H 180/77 H 94 02/10/21 11:57 36.5 C 72 20 172/81 H 95 02/10/21 09:00 83 02/10/21 07:33 36.4 C L 87 20 134/69 95 02/10/21 04:24 109 H 18 188/73 H 90 (1) Fall Encounter type: initial encounter Qualified Code(s): W19.XXXA - Unspecified fall, initial encounter (2) HTN (hypertension) Hypertension type: unspecified Qualified Code(s): I10 - Essential (primary) hypertension
[2021-02-10] MEDS: TAMSULOSIN HCL 0.4 MG CAP PO SCH (20:35)
[2021-02-11] MEDS: INSULIN ASPART 100 UNITS/ML 3 ML PEN SC SCH ×4 (07:33→20:52)
[2021-02-11] MEDS: AMANTADINE HCL 100 MG CAPSULE PO SCH (08:12)
[2021-02-11] MEDS: amLODIPine BESYLATE 5 MG TAB PO SCH (08:12)
[2021-02-11] MEDS: ASPIRIN 81 MG ECTAB PO SCH (08:12)
[2021-02-11] MEDS: ATORVASTATIN 40 MG TAB PO SCH (08:12)
[2021-02-11] MEDS: ESCITALOPRAM OXALATE 20 MG TAB PO SCH (08:13)
[2021-02-11] MEDS: TRIAMTERENE/HCTZ 37.5/25MG TAB PO SCH (08:13)
[2021-02-11] MEDS: cephALEXin 500 MG CAP PO SCH ×2 (08:13→20:51)
[2021-02-11] MEDS: ENOXAPARIN INJ 40 MG/0.4 ML SYR SQ SCH (08:13)
[2021-02-11] MEDS: PANTOprazole 40 MG TAB PO SCH (08:13)
[2021-02-11] MEDS ORDERED: METOPROLOL TARTRATE 1 MG/ML VIAL IV STA (08:38)
[2021-02-11 13:07] LABS: Basophils # (auto) 0.02 K/uL (0-0.2); Basophils % (auto) 0.3 %; Eosinophils # (auto) 0.03 K/uL (0-0.5); Eosinophils % (auto) 0.4 %; Hematocrit (blood only) 38.3 % (42-52); Hemoglobin 13.4 g/dL (14.0-18.0); Immature Granulocytes # (auto) 0.05 K/uL (0.00-0.02); Immature Granulocytes % (auto) 0.7 %; Lymphocytes # (auto) 0.79 K/uL (1.2-3.4); Lymphocytes % (auto) 11.1 %; Mean Corpuscular Hemoglobin 28.9 pg (25-34); Mean Corpuscular Volume 82.5 fL (80-100); Mean Platelet Volume 8.3 fL (7.4-10.4); Monocytes # (auto) 0.21 K/uL (0.11-0.59); Neutrophils # (auto) 6.01 K/uL (1.4-6.5); Neutrophils % (auto) 84.5 %; Platelet Count 203 K/uL (130-400); RDW Coefficient of Variation 18.9 % (11.5-14.5); RDW Standard Deviation 57.2 fL (36.4-46.3); Red Blood Count 4.64 M/uL (4.7-6.1); White Blood Count 7.11 K/uL (4.8-10.8)
[2021-02-11 13:21] LABS: Alanine Aminotransferase 60 U/L (12-78); Albumin Level 3.3 gm/dl (3.4-5.0); Aspartate Aminotransferase 45 U/L (15-37); BUN Creatinine Ratio 18.5 (10-20); Blood Urea Nitrogen 24 mg/dl (7-18); Calcium 9.5 mg/dl (8.5-10.1); Carbon Dioxide 27 mmol/L (21-32); Chloride 99 mmol/L (98-107); Creatinine Clr Calc Pharmacy 45.9 ml/min; Est GFR (African American) 62.6; Glucose 142 mg/dl (70-99); Potassium 3.9 mmol/L (3.5-5.1); Sodium 134 mmol/L (136-145)
[2021-02-11 13:26] LABS: Alkaline Phosphatase 127 U/L (45-117); Bilirubin,Total 0.9 mg/dl (0.2-1); Globulin 3.2 gm/dl (2.5-4.0); NT Pro B Type Natriuretic Pept 332 pg/ml (0-1800); Total Protein 6.5 gm/dl (6.4-8.2); Troponin I < 0.015 ng/ml (0-0.045)
--- NOTE | 2021-02-11 13:36 | Hospitalist Progress Note ---
Date of Service February 11, 2021 Assessment & Plan (1) Acute neck pain: Status post neck surgery at [facility] [place] around 7 to 10 days ago Has a cervical collar/neck brace on. Pain continues to be an issue. Currently awaiting placement to rehab. She has follow-up appointment with [facility] on . (2) Atrial fibrillation with RVR: Patient went into A. fib with RVR morning. Asymptomatic. Looking back at his records, he did have transient episode of A. fib post CABG. Will obtain transthoracic echo, TSH and troponin. Patient did receive IV Lopressor 5 mg this morning, will start patient on Lopressor 12.5 mg twice daily. [place] Vascor greater than 4, should ideally be on anticoagulation. Will await transthoracic echo. (3) Fall: Continue to work with the PT/OT Currently awaiting placement. 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 Continue with amlodipine. DVT prophylaxis Subcu Lovenox CODE STATUS Full Admission and Anticipated Discharge Date Admission Date: February 07, 2021 Subjective Patient is doing okay this morning. Reports his neck pain is significantly improved. However patient went into A. fib with RVR morning. Denies any chest pain, palpitations or any dizziness. Denies any shortness of breath. Review of Systems Review of Systems: All systems reviewed & are unremarkable except as noted in HPI & below Physical Exam Physical Exam: General: A&Ox3 HENT: NCAT, MMM, EOMI Eyes: PERRLA Neck: Neck collar in place CVS: Tachycardic with irregular rhythm Resp: b/l breath sound Abdomen: Soft, ND/NT, +BS Extremities: No c/c/e Neuro: Absence of any focal deficit Skin: warm and dry, no rashes/lesions/errythema MSK: normal ROM, no joint swelling/erythema Results & Data Results & Data ([facility]) Vital Signs (Past 12 Hours) Vital Signs Temp Pulse Pulse Resp BP BP BP 02/11/21 09:01 112 H 154/71 H 02/11/21 07:36 36.6 C 123 H 92 H 20 124/69 0422/21 02:58 36.6 C 102 H 22 97/62 L Pulse Ox 02/11/21 09:01 02/11/21 07:36 93 02/11/21 02:58 94 (1) HTN (hypertension) Hypertension type: unspecified Qualified Code(s): I10 - Essential (primary) hypertension (2) Fall Encounter type: initial encounter Qualified Code(s): W19.XXXA - Unspecified fall, initial encounter
[2021-02-11] MEDS: METOPROLOL TARTRATE 25 MG TAB PO SCH (20:51)
[2021-02-11] MEDS: TAMSULOSIN HCL 0.4 MG CAP PO SCH (20:51)
[2021-02-11] MEDS: APIXABAN 2.5 MG TAB PO SCH (20:52)
[2021-02-12 06:31] LABS: Creatinine Clr Calc Pharmacy 50.7 ml/min; Est GFR (African American) 70.5; Est GFR (Non-African American) 60.8
[2021-02-12] MEDS: amLODIPine BESYLATE 5 MG TAB PO SCH (07:57)
[2021-02-12] MEDS: APIXABAN 2.5 MG TAB PO SCH (07:57)
[2021-02-12] MEDS: TRIAMTERENE/HCTZ 37.5/25MG TAB PO SCH (07:57)
[2021-02-12] MEDS: METOPROLOL TARTRATE 25 MG TAB PO SCH ×2 (07:57→20:45)
[2021-02-12] MEDS: PANTOprazole 40 MG TAB PO SCH (07:57)
[2021-02-12] MEDS: cephALEXin 500 MG CAP PO SCH ×2 (07:57→20:45)
[2021-02-12] MEDS: ATORVASTATIN 40 MG TAB PO SCH (07:57)
[2021-02-12] MEDS: ASPIRIN 81 MG ECTAB PO SCH (07:58)
[2021-02-12] MEDS: INSULIN ASPART 100 UNITS/ML 3 ML PEN SC SCH ×4 (07:58→20:45)
[2021-02-12] MEDS: ENOXAPARIN INJ 40 MG/0.4 ML SYR SQ SCH (07:58)
[2021-02-12] MEDS ORDERED: SODIUM CHLORIDE 0.65% NA SOLN 45 ML (OCEAN) ONE (08:01)
[2021-02-12] MEDS: ESCITALOPRAM OXALATE 20 MG TAB PO SCH (08:02)
[2021-02-12] MEDS ORDERED: AMANTADINE HCL 100 MG CAPSULE PO SCH (09:00)
--- NOTE | 2021-02-12 12:00 | Cardiology Consultation ---
Date of Consultation February 12, 2021 Assessment & Plan (1) Abnormal ECG: I think the rhythm recorded on telemetry and certainly by EKG is more consistent with multifocal atrial tachycardia and wandering atrial pacemaker. He is known to have a very irregular heartbeat related to this atrial ectopy. I do not see definitive evidence of sustained atrial fibrillation. Given his other comorbidities in the absence of a definite diagnosis of atrial fibrillation I would not advocate systemic anticoagulation on this basis. I think his heart rate generally varies with activity and likely pain level. At this point his overall heart rate is normal and he clearly has this wandering atrial pacemaker. Do not believe any other specific intervention is required in the absence of worsening symptoms or poorly controlled heart rates. (2) Moderate to severe mitral regurgitation: T recently suggested moderate mitral regurgitation. Mild on echocardiography performed yesterday. (3) CAD (coronary artery disease): His bypass was performed for coronary aneurysms. Not currently having symptoms suggestive of insufficiency or angina. Continue outpatient aspirin and atorvastatin. (4) Thoracic aortic aneurysm: Measured within the last year at 4 x 4 cm. Re-evaluation later this year could be considered. Adequate blood pressure control would be paramount. 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 He also suffers from parkinsonism and reportedly dementia. The patient recently underwent neck surgery for persistent pain. It seems that he suffered a mechanical fall at home which resulted in a minor posterior head injury. Pacing was subsequently admitted to the hospital and on telemetry was felt to have an episode of atrial fibrillation and high ventricular rates. The patient does not recall any specific palpitations. He does have a personal device which monitors his heart rate. He cannot recall what this generally records and could not find his phone which stores the data. He did not report dizziness or lightheadedness but does admit to some gait unsteadiness. Lately he has been walking with a cane. He generally has an element of exercise intolerance related to his parkinsonism but did report mild dyspnea with activity. He has not report any symptoms of chest discomfort. Allergies Allergy/AdvReac Type Severity Reaction Status Date / Time YONATAN Inhibitors AdvReac Mild Cough Verified 02/06/21 23:15 Home Medications Medication Instructions Recorded Confirmed Type atorvastatin 40 mg PO QAM 09/02/18 02/06/21 History tamsulosin 0.4 mg PO HS #90 cap 12/11/19 02/06/21 Rx cephalexin 500 mg capsule 500 mg PO BID #60 cap 03/05/20 02/06/21 Rx metformin 500 mg tablet,extended 500 mg PO QAM tab 03/05/20 02/06/21 History release 24 hr triamterene 37.5 1 tab PO DAILY #90 tab 03/05/20 02/06/21 Rx mg-hydrochlorothiazide 25 mg tablet amantadine HCl 100 mg capsule 100 mg PO BID 05/22/20 02/06/21 History escitalopram oxalate 20 mg tablet 20 mg PO QAM #90 tab 01/11/21 02/06/21 Rx aspirin [Aspirin Low Dose] 81 mg PO DAILY 02/02/21 02/06/21 History methocarbamol 750 mg PO UD PRN 02/02/21 02/06/21 History oxycodone 10 mg PO UD PRN 02/02/21 02/06/21 History pantoprazole 40 mg PO DAILY 02/02/21 02/06/21 History Patient History Medical History (Updated 02/12/21 @ 11:57 by Emery Ward MD) Abnormal ECG Acute GI bleeding Anxiety Arthritis Atrial ectopy Atrial fibrillation with RVR BPH (benign prostatic hyperplasia) Carpal tunnel syndrome Cataracts, bilateral Coronary aneurysm (2011) Dementia Diabetes Diabetes mellitus type 2 with complications Edema of both legs HTN (hypertension) Orthostatic hypotension (07/2019) Recurrent cellulitis of lower extremity Sensorineural hearing loss (SNHL) Sensorineural hearing loss (SNHL) of both ears Sepsis due to group B Streptococcus (2017) Symptomatic anemia Surgical History H/O eye surgery H/O foot surgery History of right hip replacement S/P CABG (coronary artery bypass graft) (2011) CHILDS, "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 S/P triple vessel bypass S/P wrist surgery Family History Unknown Heart disease Denies family history of Prostate cancer Social History Smoking Status: Never smoker Hx Alcohol Use: No Hx Substance Use: No Preferred Language: Somali Communication Ability: Effective Fixed Capital Clerk Required: No Beliefs That Will Affect Care: None marital status: Current Living Situation: Spouse Feels Safe at Home: Yes Assistive Devices: Walker Review of Systems Review of Systems: All systems reviewed & are unremarkable except as noted in HPI & below Epistaxis this morning. Improved with nasal spray. Improvement in his head and neck pain. Physical Exam 2 Physical Exam: The patient is alert and oriented. Mood and affect appeared normal. He answered all questions appropriately. Forgetful at times. Somewhat hard of hearing. HEENT: Pupils are equal and reactive to light and accommodation. Extraocular movements are intact. The sclerae are anicteric. Epistaxis involving the left nostril. Wearing rigid cervical collar Neuro: Cranial nerves intact Lungs: Clear to auscultation bilaterally. He has good air movement without use of accessory muscles. Occasional crackle in the left base. Cardiac: Heart demonstrates an irregular rhythm but normal rate Normal S1 and S2. No murmurs on examination. Pulses: The patient has palpable radial pulses bilaterally that are equal in intensity Extremities: There was no evidence of hypoperfusion. There is no cyanosis or clubbing. Bruising on both arms Skin: I did not appreciate any rashes on examination today. Results & Data ([facility]) Vital Signs (Past 12 Hours) Vital Signs Temp Pulse Pulse Resp BP BP Pulse Ox 02/12/21 11:19 36.8 C 76 20 114/72 96 02/12/21 07:45 36.4 C L 72 18 174/95 H 94 02/12/21 07:13 84 02/12/21 03:13 36.7 C 79 22 148/81 H 93 Laboratory Results Abnormal Lab Results 02/11/21 02/11/21 02/11/21 12:50 12:50 16:34 WBC 7.11 RBC 4.64 L Hgb 13.4 L Hct 38.3 L MCV 82.5 MCH 28.9 MCHC 35.0 RDW Std Deviation 57.2 H RDW Coeff of Anny 18.9 H Plt Count 203 MPV 8.3 Immature Gran % (Auto) 0.7 Neut % (Auto) 84.5 Lymph % (Auto) 11.1 [place] % (Auto) 3.0 Eos % (Auto) 0.4 Baso % (Auto) 0.3 Neut # (Auto) 6.01 Lymph # (Auto) 0.79 L [place] # (Auto) 0.21 Eos # (Auto) 0.03 Baso # (Auto) 0.02 Immature Gran # (Auto) 0.05 H Sodium 134 L Potassium 3.9 Chloride 99 Carbon Dioxide 27 Anion Gap 9.0 BUN 24 H Creatinine 1.28 Est Cr Clr Drug Dosing 45.9 Est GFR ( Amer) 62.6 Est GFR (Non-Af Amer) 54.0 BUN/Creatinine Ratio 18.5 Glucose 142 H POC Glucose 109 H Calcium 9.5 Total Bilirubin 0.9 AST 45 H ALT 60 Alkaline Phosphatase 127 H Troponin I < 0.015 NT-Pro-B Natriuret Pep 332 Total Protein 6.5 Albumin 3.3 L Globulin 3.2 Albumin/Globulin Ratio 1.0 02/11/21 02/12/21 02/12/21 20:04 05:45 07:31 WBC RBC Hgb Hct MCV MCH MCHC RDW Std Deviation RDW Coeff of Anny Plt Count MPV Immature Gran % (Auto) Neut % (Auto) Lymph % (Auto) [place] % (Auto) Eos % (Auto) Baso % (Auto) Neut # (Auto) Lymph # (Auto) [place] # (Auto) Eos # (Auto) Baso # (Auto) Immature Gran # (Auto) Sodium Potassium Chloride Carbon Dioxide Anion Gap BUN Creatinine 1.16 Est Cr Clr Drug Dosing 50.7 Est GFR ( Amer) 70.5 Est GFR (Non-Af Amer) 60.8 BUN/Creatinine Ratio Glucose POC Glucose 177 H 116 H Calcium Total Bilirubin AST ALT Alkaline Phosphatase Troponin I NT-Pro-B Natriuret Pep Total Protein Albumin Globulin Albumin/Globulin Ratio Diagnostic Findings Echocardiogram performed yesterday revealed preserved LV systolic function with an ejection fraction of 55-60%. Aortic valve sclerosis. Mitral valve prolapse with mild regurgitation. Mild LVH. CTA 07/07/2020 at ascending thoracic aorta of 4 x 4 cm PG Care Time/CCT Total # of Minutes Spent Total Time Spent with Patient: Total time spent is greater than 50% in coordination of care (as documented) at patient's floor/unit and/or counseling patient: Coding Level of Care Code 81401 Initial Inpt Care Lvl 3 Diagnoses Abnormal ECG R94.31 Moderate to severe mitral regurgitation I34.0 CAD (coronary artery disease) I25.10 Thoracic aortic aneurysm I71.2
--- NOTE | 2021-02-12 16:16 | Electrocardiogram Report ---
Test Reason : Blood Pressure : / mmHG Vent. Rate : 111 BPM Atrial Rate : 111 BPM P-R Int : 000 ms QRS Dur : 096 ms QT Int : 386 ms P-R-T Axes : 000 -52 048 degrees QTc Int : 524 ms Multifocal atrial tachycardia Left axis deviation Incomplete right bundle branch block Prolonged QT Abnormal ECG When compared with ECG of 06-FEB-2021 22:38, Inverted T waves have replaced nonspecific T wave abnormality in Anterior leads Confirmed by Jw Ward ([id number]) on 02/12/2021 4:15:31 PM Referred By: REFERRED SELF Confirmed By:Eduar Ward
--- NOTE | 2021-02-12 19:22 | Hospitalist Progress Note ---
Date of Service February 12, 2021 Assessment & Plan (1) Acute neck pain: Status post neck surgery at [facility] [place] around 7 to 10 days ago Has a cervical collar/neck brace on. Pain continues to be an issue. Currently awaiting placement to rehab. She has follow-up appointment with [facility] on . (2) Abnormal ECG: Telemetry and certainly by EKG is more consistent with multifocal atrial tachycardia and wandering atrial pacemaker. Case discussed with cardiology that doubt about afib Echo showed left ventricular is normal in size. Mild concentric left ventricle hypertrophy. Left ventricular wall motion is normal. Ejection fraction is 55 to 60%. cardiology recommended to d/c the anticoagulant Will continue low dose metoprolol 12.5mg Clinically stable (3) Fall: Continue to work with the PT/OT Fall precaution Waiting for placement to SNF (4) Acute dehydration: Resolved (5) Diabetes mellitus type 2 with complications: Most recent Hba1c 6.8 Metformin held during the hospital course, will resume on discharge Continue insulin sliding scale BS stable (6) Parkinsonism: No acute findings (7) S/P CABG (coronary artery bypass graft): Denies any cardiac symptoms Continue current medications (8) HTN (hypertension): BP improves Continue with amlodipine. Continue monitor your blood pressure Recurrent cellulitis (History of recurrent cellulitis of lower extremities) Continue superintendent terminal cephalexin for chronic suppression therapy . DVT prophylaxis Subcu Lovenox CODE STATUS Full Disposition Discharge home to SNF Admission and Anticipated Discharge Date Admission Date: February 07, 2021 Subjective Pt was seen and examined for follow up of neck pain Sitting in chair with no distress Pt said that he feels ok Denies any chest pain, palpitation, dizziness and SOB Review of Systems Review of Systems: All systems reviewed & are unremarkable except as noted in Subjective Physical Exam Physical Exam: General- No acute distress Head- atraumatic Eyes- PERRL, EOMI, ENT- oropharynx clear Neck- rigid cervical collar Lungs- No wheezing Heart- irregular rhythm; no murmur Abdomen- normal bowel sounds, soft, nontender Extremities- no calf tenderness Neuro- alert, oriented x 3; PERRL, EOMI; no facial palsy; no dysarthria Skin- warm & dry Results & Data Results & Data ([facility]) Vital Signs (Past 12 Hours) Vital Signs Temp Pulse Pulse Resp BP Pulse Ox 02/12/21 16:00 85 02/12/21 11:19 36.8 C 76 20 114/72 96 02/12/21 07:45 36.4 C L 72 18 174/95 H 94 (1) HTN (hypertension) Hypertension type: unspecified Qualified Code(s): I10 - Essential (primary) hypertension (2) Fall Encounter type: initial encounter Qualified Code(s): W19.XXXA - Unspecified fall, initial encounter
[2021-02-12] MEDS: TAMSULOSIN HCL 0.4 MG CAP PO SCH (20:45)
[2021-02-12] MEDS: AMANTADINE HCL 100 MG CAPSULE PO SCH (20:46)
[2021-02-13 07:20] LABS: Creatinine Clr Calc Pharmacy 47.8 ml/min; Est GFR (African American) 65.7; Est GFR (Non-African American) 56.7
[2021-02-13] MEDS: INSULIN ASPART 100 UNITS/ML 3 ML PEN SC SCH (09:00)
[2021-02-13] MEDS: ENOXAPARIN INJ 40 MG/0.4 ML SYR SQ SCH (09:36)
[2021-02-13] MEDS: TRIAMTERENE/HCTZ 37.5/25MG TAB PO SCH (09:43)
[2021-02-13] MEDS: ESCITALOPRAM OXALATE 20 MG TAB PO SCH (09:44)
[2021-02-13] MEDS: ATORVASTATIN 40 MG TAB PO SCH (09:44)
[2021-02-13] MEDS: amLODIPine BESYLATE 5 MG TAB PO SCH (09:44)
[2021-02-13] MEDS: ASPIRIN 81 MG ECTAB PO SCH (09:44)
[2021-02-13] MEDS: AMANTADINE HCL 100 MG CAPSULE PO SCH (09:45)
[2021-02-13] MEDS: METOPROLOL TARTRATE 25 MG TAB PO SCH (09:45)
[2021-02-13] MEDS: PANTOprazole 40 MG TAB PO SCH (09:45)
[2021-02-13] MEDS: cephALEXin 500 MG CAP PO SCH (09:46)
--- NOTE | 2021-02-13 11:13 | Discharge Summary ---
Date of Service February 13, 2021 Admission HPI Per Admitting Provider HISTORY OF PRESENT ILLNESS: This is a 75-year-old male with past medical history significant for CAD, status post CABG, hypertension, hyperlipidemia, history of ascending aortic aneurysm, cerebral aneurysm, mitral valve prolapse with moderate MR and mild AI, hypertension, type 2 diabetes, peripheral artery disease, anemia, Parkinson's disease, chronic kidney disease stage III, BPH, primary osteoarthritis of both knees, dementia associated with Parkinson's disease. Recently had neck surgery at [facility], comes with falls at home. The patient was in the ER on 02/02/2021 also for the right-sided neck pain and there is a plan to transfer to [place], but the MRI was done here and after discussing MRI results with his neurosurgeon, Dr. Bates at [facility], advised to follow as outpatient and follow with pain clinic. The patient lives at home with his . Today patient fell at home. Family thinks he is not eating much and drinking much because of pain in the neck and is getting dehydrated. He has a [place] J collar. Because of that, he became weak and falling down frequently. EMS was called to assist to lift the patient, but the EMS found his blood pressure was elevated and his oxygen saturation was noted to be low and he was brought into the hospital. His initial oxygen was 88%, but on 2 liters currently saturating in high 90s, resting comfortably, alert and awake, able to answer questions. Able to move his extremities. His COVID is negative. Chest x-ray shows cardiomegaly, but otherwise no acute findings. Afebrile. The patient denies any chest pain, denies any abdominal pain. No nausea, no cough. Has some headache and neck pain. No fevers, but feeling chills. He is constipated. Normal bladder movements. Appetite is down. Not eating much as per the . okay for the placement. Admission Exam Per Admitting Provider GENERAL: The patient is of moderate build, not in acute distress. VITAL SIGNS: Temperature 36.7, pulse 78, respiratory rate 20, blood pressure 114/65, oxygen currently 98% on 2 liters. HEENT: Pupils equal, round, reactive to light. Oral mucosa dry. NECK: Is in [place] J collar. CARDIOVASCULAR: S1, S2 heard. Regular rate and rhythm, no murmur, no gallop. RESPIRATORY SYSTEM: Normal AP diameter. No accessory muscle use. No wheezing, no crackles. ABDOMEN: Soft, bowel sounds present, nontender. No distention. CENTRAL NERVOUS SYSTEM: Cranial nerves II-XII grossly intact. Alert and awake. Speech is clear. Obeys commands. Power 5/5 in all extremities. EXTREMITIES: No edema, no erythema. Principal Diagnosis Acute neck pain Abnormal ECG Fall Acute dehydration Diabetes mellitus type 2 with complications: Parkinsonism: S/P CABG (coronary artery bypass graft): HTN (hypertension): Discharge Exam General- No acute distress Head- atraumatic Eyes- PERRL, EOMI, ENT- oropharynx clear Neck- rigid cervical collar Lungs- No wheezing Heart- irregular rhythm; no murmur Abdomen- normal bowel sounds, soft, nontender Extremities- no calf tenderness Neuro- alert, oriented x 3; PERRL, EOMI; no facial palsy; no dysarthria Skin- warm & dry Discharge Data Allergies Allergy/AdvReac Type Severity Reaction Status Date / Time YONATAN Inhibitors AdvReac Mild Cough Verified 02/06/21 23:15 Consultations 02/07/21 00:38 ED Decision to Admit Stat 02/11/21 17:16 Consult Cardiology Routine Ordered Studies XR chest 1V portable CLINICAL HISTORY: weakness COMPARISON STUDY: 07/07/2020 FINDINGS: The heart remains enlarged. There is aortic tortuosity/ectasia. There is no failure. There is no focal pulmonary consolidation. There are no pleural effusions. Chronic changes involve the AC joints bilaterally. There are postsurgical changes of a midline sternotomy.[ IMPRESSION: Stable cardiomegaly. No acute findings. ACT 112: Negative or not required by law. Electronically signed by: Reggie Harp M.D. 02/07/2021 8:28 AM Dictated: 02/07/21826Transcribed: 02/07/21826 Hospital Course (1) Acute neck pain: Status post neck surgery at [facility] [place] around 7 to 10 days ago Has a cervical collar/neck brace on. Pain continues to be an issue. Currently awaiting placement to rehab. She has follow-up appointment with [facility] on . (2) Abnormal ECG: Telemetry and certainly by EKG is more consistent with multifocal atrial tachycardia and wandering atrial pacemaker. Case discussed with cardiology that doubt about afib Echo showed left ventricular is normal in size. Mild concentric left ventricle hypertrophy. Left ventricular wall motion is normal. Ejection fraction is 55 to 60%. cardiology recommended to d/c the anticoagulant Will continue low dose metoprolol 12.5mg Clinically stable (3) Fall: Continue to work with the PT/OT Fall precaution Waiting for placement to SNF (4) Acute dehydration: Resolved (5) Diabetes mellitus type 2 with complications: Most recent Hba1c 6.8 Metformin held during the hospital course, will resume on discharge Continue insulin sliding scale BS stable (6) Parkinsonism: No acute findings (7) S/P CABG (coronary artery bypass graft): Denies any cardiac symptoms Continue current medications (8) HTN (hypertension): BP improves Continue with amlodipine. Continue monitor your blood pressure Recurrent cellulitis (History of recurrent cellulitis of lower extremities) Continue jail cephalexin for chronic suppression therapy . DVT prophylaxis Subcu Lovenox CODE STATUS Full Disposition Discharge home to SNF Total Time Total Time Spent Total Time Spent (In Minutes): 490 minutes Total Time Includes: Examination of the Patient, Discharge Planning, Medication Reconciliation, Communication With Other Providers and Other Discharge Plan Discharge Items Patient Disposition: Transfer Correction Fac Reason For Visit: FALL Discharge Diagnosis: Acute neck pain Abnormal ECG Fall Acute dehydration Diabetes mellitus type 2 with complications: Parkinsonism: S/P CABG (coronary artery bypass graft): HTN (hypertension): Activity: Resume your previous activity Non-emergency contact: Primary Care Provider Call non-emergency contact if: you have any medication questions Follow-up/Referrals: Michael Hinton MD [Primary Care Provider] - (Date & Time 02/12/2021 11:00 AM Provider Michael Hinton MD Department Family Practice [facility] ) Diet: Carb Consistent or DM2 Addtl Attending Provider Instructions: Follow up with your primary care provider at [facility] Follow up with orthopedic at [facility] for your recent neck surgery Follow up with your cardiology Continue physical therapy and occupational therapy Continue to wear the cervical collar/neck brace until clear by ortho Fall precaution Continue monitor your blood pressure Please hold next dose of narcotic if you develop any lethargy and drowsiness Pending Studies at Discharge: No Stand-Alone Forms: My [employer] Skilled Items Patient informed of condition?: Yes DNR: No Discharge Level of Care: Skilled Communicable Disease: No Discharge Prognosis: Stable Lines: None Urinary Catheter: No Medications and DC Order Prescriptions: New amlodipine [Norvasc] 5 mg Tablet 5 mg PO QAM 30 Days Qty: 30 RF: 0 metoprolol tartrate 25 mg Tablet 12.5 mg PO BID 30 Days Qty: 30 RF: 0 oxycodone 5 mg Tablet 5 mg PO Q8H PRN (Reason: severe pain (scale score 7-10)) Qty: 10 RF: 0 polyethylene glycol 3350 [Miralax] 17 gram Powder In Packet 17 g PO DAILY PRN (Reason: constipation) Qty: 30 RF: 0 Continued cephalexin 500 mg capsule 500 mg PO BID Qty: 60 RF: 0 escitalopram oxalate 20 mg tablet 20 mg PO QAM Qty: 90 RF: 3 amantadine HCl 100 mg capsule 100 mg PO BID RF: 0 triamterene-hydrochlorothiazid 37.5-25 mg tablet 1 tab PO DAILY Qty: 90 RF: 3 atorvastatin 40 mg Tablet 40 mg PO QAM RF: 0 tamsulosin 0.4 mg capsule 0.4 mg PO HS Qty: 90 RF: 0 metformin 500 mg tablet extended release 24 hr 500 mg PO QAM RF: 0 methocarbamol 750 mg tablet 750 mg PO UD PRN (Reason: Unknown) RF: 0 pantoprazole 40 mg tablet,delayed release (DR/EC) 40 mg PO DAILY RF: 0 aspirin [Aspirin Low Dose] 81 mg Tablet,Delayed Release (Dr/Ec) 81 mg PO DAILY RF: 0 Discontinued oxycodone 10 mg tablet 10 mg PO UD PRN (Reason: Pain) RF: 0 Discharge Orders: Discharge Order (Routine); Ordered 02/13/21 Ordered By: Lucy Ramos/Other Patient Handouts: High Blood Sugar (Hyperglycemia), Hypoglycemia (Low Blood Sugar), Managing Type 2 Diabetes, Managing Diabetes: The A1C Test Admission Data Admit Date/Time: 02/07/21 02:03 Attending Provider: Lucy Alexander Admit Provider: Jeff Gibbs Primary Care Provider: Michael Hinton Other Providers: Jeff Gibbs ; [place] ; [facility] ; Bayron Merchant ; Michael Stanton ; Tonio Ernandez ; Dominick Ogden ; Nitin Gracia ; Ammon Buckley Jr ; Richardson Leone ; Magy Osuna ; Juliane Main ; Emery Cobos ; Emery Ward ; Kyrie Brantley ; Jesus Nur ; Meri Mcdaniels ; Akbar Staton ; Felice Enamorado ; Aleks Damico
== END 2021-02-13 12:11 | DRG 641 ==
LOC: ED 22:34 → 2W 02-07 02:03 → SUATTDRO 02-07 02:03 → 2W 02-07 03:57

== ENCOUNTER 2021-06-17 20:56 | Inpatient (IN) ==
[2021-06-17 22:06] LABS: Alanine Aminotransferase 19 U/L (12-78); Albumin Level 3.6 gm/dl (3.4-5.0); Aspartate Aminotransferase 14 U/L (15-37); BUN Creatinine Ratio 21.8 (10-20); Blood Urea Nitrogen 34 mg/dl (7-18); Calcium 8.7 mg/dl (8.5-10.1); Carbon Dioxide 27 mmol/L (21-32); Chloride 108 mmol/L (98-107); Est GFR (African American) 48.6 ml/min; Est GFR (Non-African American) 41.9 ml/min; Glucose 146 mg/dl (70-99); Potassium 3.9 mmol/L (3.5-5.1); Sodium 141 mmol/L (136-145)
[2021-06-17 22:08] LABS: Hematocrit (blood only) 24.1 % (42-52); Hemoglobin 6.7 g/dL (14.0-18.0); Mean Corpuscular Hgb Conc 27.8 g/dL (32-36); Mean Corpuscular Volume 64.8 fL (80-100); Mean Platelet Volume 8.3 fL (7.4-10.4); Platelet Count 180 K/uL (130-400); RDW Coefficient of Variation 20.3 % (11.5-14.5); RDW Standard Deviation 48.2 fL (36.4-46.3); Red Blood Count 3.72 M/uL (4.7-6.1)
[2021-06-17 22:09] LABS: Albumin Globulin Ratio 1.2 (0.9-2); Alkaline Phosphatase 119 U/L (45-117); Bilirubin,Total 0.4 mg/dl (0.2-1); Globulin 2.9 gm/dl (2.5-4.0); Total Protein 6.5 gm/dl (6.4-8.2)
[2021-06-17 22:09] LABS: Appearance Urine Clear (Clear); Bilirubin Urine Negative (Negative); Blood Urine Negative (Negative); Color Urine Yellow; Glucose Urine UA Negative (Negative); Ketones Urine Negative (Negative); Leukocyte Esterase Urine Negative (Negative); Nitrite Urine Negative (Negative); Protein Urine Negative (Negative); Urobilinogen Urine Negative (Negative)
[2021-06-17 22:14] LABS: Anisocytosis Present; Basophils # (auto) 0.04 K/uL (0-0.2); Eosinophils # (auto) 0.11 K/uL (0-0.5); Eosinophils % (auto) 2.8 %; Hypochromasia Present; Lymphocytes # (auto) 0.93 K/uL (1.2-3.4); Lymphocytes % (auto) 23.3 %; Monocytes # (auto) 0.38 K/uL (0.11-0.59); Monocytes % (auto) 9.5 %; Neutrophils # (auto) 2.54 K/uL (1.4-6.5); Neutrophils % (auto) 63.4 %; Ovalocytes 1+; Polychromasia 1+
[2021-06-17] MEDS ORDERED: SODIUM CHLORIDE 0.9% 250 ML IV PRN (22:33)
--- NOTE | 2021-06-17 22:46 | Emergency Department Note ---
History of Present Illness General Chief complaint: Abnormal Labs/Diagnostic Testing Stated complaint: BLOOD TRANSFUSION Time Seen by Provider: 06/17/21 22:15 Source: patient Mode of arrival: ambulatory Limitations: no limitations History of Present Illness Maximum Pain Intensity: 6 This patient is a 76-year-old male sent in from his doctor's office after he had a low hemoglobin in the 6 range. He does have a history of having low hemoglobin he seen by Dr. Javed as well as GI. According to the daughter they have never quite found where he is losing blood from but they think it is iron deficiency plus GI loss. He said no blood or melena in stool. He has had generalized malaise and weakness. He gets occasionally lightheaded with walking. He does have some dyspnea on exertion but no shortness of breath at rest rest. No abdominal pain or distention no back pain. Denies dysuria hematuria no chest pain shortness breath or cough. No fever. Had the Covid vaccine x2. Home Medications Medication Instructions Recorded Confirmed Type atorvastatin 40 mg tablet 40 mg PO QAM 09/02/18 06/17/21 History tamsulosin 0.4 mg capsule 0.4 mg PO HS #90 cap 12/11/19 06/17/21 Rx amantadine HCl 100 mg capsule 100 mg PO BID 05/22/20 06/17/21 History escitalopram oxalate 20 mg tablet 20 mg PO QAM #90 tab 01/11/21 06/17/21 Rx aspirin 81 mg tablet,delayed 81 mg PO QAM 02/02/21 06/17/21 History release (Aspirin Low Dose) pantoprazole 40 mg tablet,delayed 40 mg PO QAM 02/02/21 06/17/21 History release donepezil 10 mg tablet 10 mg PO HS 05/11/21 06/17/21 History furosemide 40 mg tablet 40 mg PO 2XWK #30 tab 05/11/21 06/17/21 Rx magnesium oxide 400 mg PO QAM 05/11/21 06/17/21 History melatonin 10 mg tablet 10 mg PO HS PRN 05/11/21 06/17/21 History potassium chloride 20 mEq 20 meq PO 2XWK #30 tab 05/11/21 06/17/21 Rx tablet,extended release triamterene 37.5 1 tab PO 5XWK tab 05/11/21 06/17/21 History mg-hydrochlorothiazide 25 mg tablet bupropion HCl 150 mg 24 hr tablet, 150 mg PO DAILY 06/17/21 06/17/21 History extended release cephalexin 500 mg capsule 500 mg PO BID 06/17/21 06/17/21 History fluocinonide 0.05 % topical 1 applic TOPICAL DAILY PRN 06/17/21 06/17/21 History solution metformin 500 mg tablet,extended 500 mg PO QAM 06/17/21 06/17/21 History release 24 hr metoprolol succinate 25 mg 25 mg PO QAM 06/17/21 06/17/21 History tablet,extended release 24 hr Allergies Allergy/AdvReac Type Severity Reaction Status Date / Time YONATAN Inhibitors AdvReac Mild Cough Verified 06/17/21 23:18 Past Med/Surg History Medical History Acute dehydration Acute GI bleeding Acute neck pain Anxiety Arthritis Atrial ectopy Atrial fibrillation with RVR BPH (benign prostatic hyperplasia) Carpal tunnel syndrome Cataracts, bilateral Coronary aneurysm (2011) Dementia Diabetes Edema of both legs Fall HTN (hypertension) Orthostatic hypotension (07/2019) Recurrent cellulitis of lower extremity Seasonal allergies Sensorineural hearing loss (SNHL) Sensorineural hearing loss (SNHL) of both ears Sepsis due to group B Streptococcus (2017) Symptomatic anemia Surgical History H/O eye surgery H/O foot surgery History of right hip replacement S/P triple vessel bypass S/P wrist surgery Family History Unknown No problems noted. 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 Dig[employer] Required: No Beliefs That Will Affect Care: None marital status: Current Living Situation: Spouse Feels Safe at Home: Yes Assistive Devices: Walker Review of Systems A total of 10 systems reviewed and were otherwise negative Physical Exam Vital Signs Vital Signs - 24 hr 06/17/21 21:08 06/17/21 22:10 06/18/21 00:06 Temperature 36.6 C 36.6 C Temperature Source Temporal Artery Scan Oral Pulse Rate 76 74 Pulse Rate from SpO2 Sensor 76 73 Pulse Rhythm Regular Pulse Strength Normal Respiratory Rate 20 24 Respiratory Effort / Characteristics Non-Labored Spontaneous Respiratory Depth Normal Respiratory Pattern Regular Blood Pressure 117/60 131/56 L 122/60 Blood Pressure Mean 79 81 80 Blood Pressure Position Sitting Pulse Oximetry 100 100 99 Oxygen Delivery Method Room Air Sepsis Recent Fever Within 48 Hours No Sepsis New/Unexplained Change in Mental Status N/A Sepsis Action Taken by Nursing No Action Required 06/18/21 00:07 06/18/21 00:30 06/18/21 01:00 Temperature 36.6 C 36.8 C Temperature Source Oral Oral Pulse Rate 73 70 Pulse Rate from SpO2 Sensor 75 71 Pulse Rhythm Regular Pulse Strength Normal Respiratory Rate 18 18 Respiratory Effort / Characteristics Respiratory Depth Respiratory Pattern Blood Pressure 122/60 129/68 124/72 Blood Pressure Mean 80 88 89 Blood Pressure Position Lying Lying Pulse Oximetry 97 98 96 Oxygen Delivery Method Sepsis Recent Fever Within 48 Hours Sepsis New/Unexplained Change in Mental Status Sepsis Action Taken by Nursing General: Well developed well nourished slightly pale older male who appears in no acute distress, breathing comfortably on room air. Normal speech HEENT: Normal cephalic atraumatic. Pupils are equal round and reactive to light. Sclera anicteric. Extraocular movements are intact. Oropharynx is pink with moist mucous membranes. No swelling of the mouth lips or tongue. Neck: Supple with a midline trachea. No meningeal signs or stiffness, no JVD or bruits. No Stridor. Chest: Clear to auscultation bilaterally. No wheezes or rhonchi. No increased work of breathing. Heart: Regular rate and rhythm without murmurs or gallops. Abdomen: Soft nontender, nondistended without rebound guarding or rigidity. Rectal: Normal tone brown stool guaiac negative Extremities: No cyanosis clubbing or edema. No calf tenderness or assymetry Spine/Back. Non tender to palpation. No CVA tenderness Skin: Good turgor without rashes. Neurologic exam: Cranial nerves two through 12 are intact. Motor and sensation are intact and symmetrical throughout. Medical Decision Making Differential Diagnosis GI bleed, anemia, electrolyte or metabolic abnormality, Covid, hematologic disorder, iron deficiency, infection, trauma Medical Records Attestation: I reviewed the patient's medical records. Home Medications Current Medication List: was personally reviewed by me Laboratory Data Attestation: I reviewed the patient's lab results. Result diagrams: 06/17/21 21:30 06/17/21 21:30 Lab Results 06/17/21 06/17/21 06/17/21 Range/Units 21:30 21:30 21:35 WBC 4.00 L (4.8-10.8) K/uL RBC 3.72 L (4.7-6.1) M/uL Hgb 6.7 L* (14.0-18.0) g/dL Hct 24.1 L (42-52) % MCV 64.8 L (80-100) fL MCH 18.0 L (25-34) pg MCHC 27.8 L (32-36) g/dL RDW Std Deviation 48.2 H (36.4-46.3) fL RDW Coeff of Anny 20.3 H (11.5-14.5) % Plt Count 180 (130-400) K/uL MPV 8.3 (7.4-10.4) fL Immature Gran % (Auto) 0.0 % Neut % (Auto) 63.4 % Lymph % (Auto) 23.3 % [place] % (Auto) 9.5 % Eos % (Auto) 2.8 % Baso % (Auto) 1.0 % Neut # (Auto) 2.54 (1.4-6.5) K/uL Lymph # (Auto) 0.93 L (1.2-3.4) K/uL [place] # (Auto) 0.38 (0.11-0.59) K/uL Eos # (Auto) 0.11 (0-0.5) K/uL Baso # (Auto) 0.04 (0-0.2) K/uL Immature Gran # (Auto) 0.00 (0.00-0.02) K/uL Polychromasia 1+ Hypochromasia Present Anisocytosis Present Ovalocytes 1+ Sodium 141 (136-145) mmol/L Potassium 3.9 (3.5-5.1) mmol/L Chloride 108 H (98-107) mmol/L Carbon Dioxide 27 (21-32) mmol/L Anion Gap 7.0 (3-11) BUN 34 H (7-18) mg/dl Creatinine 1.57 H (0.6-1.4) mg/dl Est Cr Clr Drug Dosing Not Reportable Est GFR ( Amer) 48.6 ml/min Est GFR (Non-Af Amer) 41.9 ml/min BUN/Creatinine Ratio 21.8 H (10-20) Glucose 146 H (70-99) mg/dl Calcium 8.7 (8.5-10.1) mg/dl Magnesium 2.0 (1.8-2.4) mg/dl Total Bilirubin 0.4 (0.2-1) mg/dl AST 14 L (15-37) U/L ALT 19 (12-78) U/L Alkaline Phosphatase 119 H (45-117) U/L Total Protein 6.5 (6.4-8.2) gm/dl Albumin 3.6 (3.4-5.0) gm/dl Globulin 2.9 (2.5-4.0) gm/dl Albumin/Globulin Ratio 1.2 (0.9-2) Urine Color Yellow Urine Appearance Clear (Clear) Urine pH 5.0 (4.5-7.5) Ur Specific [place] 1.010 (1.000-1.030) Urine Protein Negative (Negative) Urine Glucose (UA) Negative (Negative) Urine Ketones Negative (Negative) Urine Blood Negative (Negative) Urine Nitrite Negative (Negative) Urine Bilirubin Negative (Negative) Urine Urobilinogen Negative (Negative) Ur Leukocyte Esterase Negative (Negative) COVID-19 Eval Order SARS-CoV-2 (PCR) (Negative) Blood Type Antibody Screen Crossmatch 06/17/21 06/17/21 06/17/21 Range/Units 21:42 21:42 22:52 WBC (4.8-10.8) K/uL RBC (4.7-6.1) M/uL Hgb (14.0-18.0) g/dL Hct (42-52) % MCV (80-100) fL MCH (25-34) pg MCHC (32-36) g/dL RDW Std Deviation (36.4-46.3) fL RDW Coeff of Anny (11.5-14.5) % Plt Count (130-400) K/uL MPV (7.4-10.4) fL Immature Gran % (Auto) % Neut % (Auto) % Lymph % (Auto) % [place] % (Auto) % Eos % (Auto) % Baso % (Auto) % Neut # (Auto) (1.4-6.5) K/uL Lymph # (Auto) (1.2-3.4) K/uL [place] # (Auto) (0.11-0.59) K/uL Eos # (Auto) (0-0.5) K/uL Baso # (Auto) (0-0.2) K/uL Immature Gran # (Auto) (0.00-0.02) K/uL Polychromasia Hypochromasia Anisocytosis Ovalocytes Sodium (136-145) mmol/L Potassium (3.5-5.1) mmol/L Chloride (98-107) mmol/L Carbon Dioxide (21-32) mmol/L Anion Gap (3-11) BUN (7-18) mg/dl Creatinine (0.6-1.4) mg/dl Est Cr Clr Drug Dosing Est GFR ( Amer) ml/min Est GFR (Non-Af Amer) ml/min BUN/Creatinine Ratio (10-20) Glucose (70-99) mg/dl Calcium (8.5-10.1) mg/dl Magnesium (1.8-2.4) mg/dl Total Bilirubin (0.2-1) mg/dl AST (15-37) U/L ALT (12-78) U/L Alkaline Phosphatase (45-117) U/L Total Protein (6.4-8.2) gm/dl Albumin (3.4-5.0) gm/dl Globulin (2.5-4.0) gm/dl Albumin/Globulin Ratio (0.9-2) Urine Color Urine Appearance (Clear) Urine pH (4.5-7.5) Ur Specific [place] (1.000-1.030) Urine Protein (Negative) Urine Glucose (UA) (Negative) Urine Ketones (Negative) Urine Blood (Negative) Urine Nitrite (Negative) Urine Bilirubin (Negative) Urine Urobilinogen (Negative) Ur Leukocyte Esterase (Negative) COVID-19 Eval Order Covid19 at [facility] SARS-CoV-2 (PCR) NEGATIVE (Negative) Blood Type A Positive Antibody Screen NEGATIVE Crossmatch See Detail Imaging Data Attestation: I personally reviewed and interpreted this imaging study as follows: My Impression: Chest x-raycardiomegaly with postsurgical changes. No pneumothorax or focal infiltrate. There may be a mild congestive change ECG Data Attestation: I personally reviewed and interpreted this ECG as follows: Indication: + weakness Rate (beats per minute): 76 Rhythm: + normal sinus and + other (Poor baseline) ECG Intervals/blocks: + Normal QRS and + Normal QT ECG [place]: + Normal ECG ST segments: + Nonspecific ST abnormalities ECG Findings: + PVCs Comparison ECG Date: from (02/11/21) Change: the following changes noted (Rate has decreased, PVCs are now present) MDM Narrative This patient comes in as described above. He was placed on a residential monitor room C6. The nurses asked me to see him as his hemoglobin was low. He does not appear to be in any significant distress. I did do a rectal exam he is guaiac negative at this point. Talking to the daughter it sounds like this is been more of an occult GI loss plus iron deficiency anemia. Looking back his last hemoglobin was significantly elevated compared to today's I suspect this is more of a subacute rather than acute loss. IV access was established his BUN and creatinine creatinine are also moderate mildly elevated. EKG does not show any ischemic changes he does have some PVCs. I did talk to the patient and his daughter at length about transfusion they did freely consents and is on the chart. I did explain the risk and the benefits. I did order him to be typed and crossed for 4 units and to transfuse one in the ED. I did consult with Dr. Reyes to see the patient for further treatment and evaluation Continuous cardiac monitoring: Due to his weakness and low hemoglobin, orders placed in EMR for continuous cardiac monitoring. Upon my interpretation the patient was noted to be in normal sinus rhythm with a rate of 75. Impression & Plan Weakness, Anemia, Acute renal insufficiency, Lab test negative for COVID-19 virus Discharge Plan Visit Data Chief Complaint: Abnormal Labs/Diagnostic Testing Stated Complaint: BLOOD TRANSFUSION ED Provider: Edgar Dimas Discharge Problem: Weakness, Anemia, Acute renal insufficiency, Lab test negative for COVID-19 virus Forms Stand Alone Forms: My [facility] [employer] Prescriptions Prescriptions: No Action escitalopram oxalate 20 mg tablet 20 mg PO QAM Qty: 90 RF: 3 amantadine HCl 100 mg capsule 100 mg PO BID RF: 0 donepezil 10 mg tablet 10 mg PO HS RF: 0 triamterene-hydrochlorothiazid 37.5-25 mg tablet 1 tab PO 5XWK RF: 0 melatonin 10 mg tablet 10 mg PO HS PRN (Reason: Sleep) RF: 0 magnesium oxide 400 mg magnesium capsule 400 mg PO QAM RF: 0 furosemide 40 mg tablet 40 mg PO 2XWK Qty: 30 RF: 3 potassium chloride 20 mEq tablet extended release 20 meq PO 2XWK Qty: 30 RF: 3 atorvastatin 40 mg Tablet 40 mg PO QAM RF: 0 tamsulosin 0.4 mg capsule 0.4 mg PO HS Qty: 90 RF: 0 pantoprazole 40 mg tablet,delayed release (DR/EC) 40 mg PO QAM RF: 0 aspirin [Aspirin Low Dose] 81 mg Tablet,Delayed Release (Dr/Ec) 81 mg PO QAM RF: 0 metformin 500 mg tablet extended release 24 hr 500 mg PO QAM RF: 0 bupropion HCl 150 mg tablet extended release 24 hr 150 mg PO DAILY RF: 0 fluocinonide 0.05 % solution 1 applic TOPICAL DAILY PRN (Reason: after bathing) RF: 0 metoprolol succinate 25 mg tablet extended release 24 hr 25 mg PO QAM RF: 0 cephalexin 500 mg capsule 500 mg PO BID RF: 0 Referrals Referrals: Michael Hinton MD [Primary Care Provider] - Discharge Problem: Anemia Qualifiers: Anemia type: unspecified type Qualified Code(s): D64.9 - Anemia, unspecified
--- NOTE | 2021-06-18 01:20 | History & Physical Report ---
Date of Service June 18, 2021 Assessment & Plan (1) Symptomatic anemia: Plan: Acute on chronic, hemoglobin drop from baseline Recurrent issue No obvious source of bleeding from outpatient endoscopic work-up last year. Concomitant leukopenia with yesterday's outpatient blood draw ? Myelodysplasia Low iron indices on anemia work-up FOBT done at the ER was negative. ARF (acute renal failure) ? 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 Javed) as per patient/family request. Monitor creatinine response to IVF Appropriate to hold home diuretic and losartan for now until creatinine at baseline. Renal ultrasound if without improvement in kidney function. ISS BG goal [id number], carb count coverage DVT prophylaxis. Heparin subcu Full code Patient's daughter requesting for updates from providers. Mrs. Cathy Garcia thru contact #[phone]. Text document was generated using [employer] voice recognition software. It may contain grammatical or spelling errors. Kindly contact undersigned for clarification of any documentation item in question. History of Present Illness Chief Complaint: Weakness, abnormal blood work Primary Care Provider: Michael Hinton MD History obtained from patient, family, and records. Medical history significant for hypertension, hyperlipidemia, Parkinson's dementia, CAD sp CABG, moderate mitral regurgitation, wandering atrial pacemaker as per records, medullary sponge kidney as per r ecords, BPH, chronic anemia (recent hemoglobin of 10- 11 from January 2021), history recurrent cellulitis on chronic Keflex Rx. Last confinement January 2021 for postop neck pain following [facility] [place] surgery. Patient discharged to [facility] for rehab for about 3 weeks then subsequently discharged to home. Few days history of generalized malaise and weakness, occasional lightheadedness. Patient denies chest pain, headache symptoms. Admits to some shortness of breath on exertion. No cough symptoms. Patient denies abdominal pain/black/bloody stools/hematuria. Home nursing expressed depression concerns per patient as per documentation which patient currently denies. PCP ordered outpatient labs subsequently drawn yesterday morning. WBC 3.5, hemoglobin 6.7, hematocrit 25.7, MCV 68.2, MCH 17.8, MCHC 26.1, RDW 20.3, platelets 189 Neutrophils 58.8%, lymphocytes 26.3%, monocytes 11.1%, absolute lymphocytes 0.92 Moderate anisocytosis, slight hypochromia, microcytosis noted, moderate ovalocytes, slight polychromasia, few schistocytes Serum iron 16, TIBC 407, transferrin saturation percent 4, ferritin 10, vitamin B12 451, folic acid 10.9 Serum TSH within normal limits Outpatient creatinine noted to be 1.5. Patient directed to the ER by PCPs office. FOBT negative as per ER provider. 1 unit packed RBC transfused at the ER. Medical History as above 2019 EGD showed erythematous duodenopathy. 2019 colonoscopy showed diverticulosis, internal hemorrhoids. 2020 wireless capsule endoscopy showed normal appearing small bowel. 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, lives with Allergies Allergy/AdvReac Type Severity Reaction Status Date / Time YONATAN Inhibitors AdvReac Mild Cough Verified 06/17/21 23:18 Home Medications Medication Instructions Recorded Confirmed Type atorvastatin 40 mg tablet 40 mg PO QAM 09/02/18 06/17/21 History tamsulosin 0.4 mg capsule 0.4 mg PO #90 cap 12/11/19 06/17/21 Rx amantadine HCl 100 mg capsule 100 mg PO BID 05/22/20 06/17/21 History escitalopram oxalate 20 mg tablet 20 mg PO QAM #90 tab 01/11/21 06/17/21 Rx aspirin 81 mg tablet,delayed 81 mg PO QAM 02/02/21 06/17/21 History release (Aspirin Low Dose) pantoprazole 40 mg tablet,delayed 40 mg PO QAM 02/02/21 06/17/21 History release donepezil 10 mg tablet 10 mg PO HS 05/11/21 06/17/21 History furosemide 40 mg tablet 40 mg PO 2XWK #30 tab 05/11/21 06/17/21 Rx magnesium oxide 400 mg PO QAM 05/11/21 06/17/21 History melatonin 10 mg tablet 10 mg PO HS PRN 05/11/21 06/17/21 History potassium chloride 20 mEq 20 meq PO 2XWK #30 tab 05/11/21 06/17/21 Rx tablet,extended release triamterene 37.5 1 tab PO 5XWK tab 05/11/21 06/17/21 History mg-hydrochlorothiazide 25 mg tablet bupropion HCl 150 mg 24 hr tablet, 150 mg PO DAILY 06/17/21 06/17/21 History extended release cephalexin 500 mg capsule 500 mg PO BID 06/17/21 06/17/21 History fluocinonide 0.05 % topical 1 applic TOPICAL DAILY PRN 06/17/21 06/17/21 History solution metformin 500 mg tablet,extended 500 mg PO QAM 06/17/21 06/17/21 History release 24 hr metoprolol succinate 25 mg 25 mg PO QAM 06/17/21 06/17/21 History tablet,extended release 24 hr Past Med/Surg History Medical History Acute dehydration Acute GI bleeding Acute neck pain Anxiety Arthritis Atrial ectopy Atrial fibrillation with RVR BPH (benign prostatic hyperplasia) Carpal tunnel syndrome Cataracts, bilateral Coronary aneurysm (2011) Dementia Diabetes Edema of both legs Fall HTN (hypertension) Orthostatic hypotension (07/2019) Recurrent cellulitis of lower extremity Seasonal allergies Sensorineural hearing loss (SNHL) Sensorineural hearing loss (SNHL) of both ears Sepsis due to group B Streptococcus (2017) Symptomatic anemia Surgical History H/O eye surgery H/O foot surgery History of right hip replacement S/P triple vessel bypass S/P wrist surgery Family History Unknown No problems noted. Father Hypertension Mother Hypertension Brother Allergies Asthma Denies family history of Prostate cancer Hearing loss No family history of adverse response to anesthesia No family history of bleeding disorder Heart disease Cancer Stroke Social History Smoking Status: Never smoker Hx Alcohol Use: No Hx Substance Use: No Preferred Language: [place] Communication Ability: Effective Home Energy Consultant Required: No Beliefs That Will Affect Care: None marital status: Current Living Situation: Spouse Other Information That Helps Us Care for You: No Feels Safe at Home: Yes Safety Concerns: Feels Safe At This Time Assistive Devices: Cane, Hearing Aid - Bilateral and Walker Review of Systems Review of Systems: As per HPI, all 10 systems reviewed, all other ROS negative Physical Exam Physical Exam: GENERAL: Comfortable, pleasant, no respiratory distress SKIN: Pallor , warm HEENT: Pale palpebral conjunctivae, chronic ptosis right, dry buccal mucosa NECK : Supple, short neck, no tenderness CHEST : CTA, no tenderness HEART : RRR, systolic murmur ABDOMEN: Some distention, nontender EXTREMITIES : Minimal LE swelling, no LE tenderness, no other conspicuous deformities noted NEUROLOGIC : Coherent, chronic ptosis right, mild hearing impairment, no facial asymmetry, gait and stance not assessed Results & Data Results & Data ([facility]) Vital Signs (Past 12 Hours) Vital Signs Temp Pulse Resp BP Pulse Ox 06/18/21 01:00 124/72 96 06/18/21 00:30 36.8 C 70 18 129/68 98 06/18/21 00:07 36.6 C 73 18 122/60 97 06/18/21 00:06 36.6 C 122/60 99 06/17/21 22:10 74 24 131/56 L 100 06/17/21 21:08 36.6 C 76 20 117/60 100 Laboratory Results Laboratory Results WBC 4.00 K/uL (4.8-10.8) L 06/17/21 21:30 RBC 3.72 M/uL (4.7-6.1) L 06/17/21 21:30 Hgb 6.7 g/dL (14.0-18.0) L* 06/17/21 21:30 Hct 24.1 % (42-52) L 06/17/21 21:30 MCV 64.8 fL (80-100) L 06/17/21 21:30 MCH 18.0 pg (25-34) L 06/17/21 21:30 MCHC 27.8 g/dL (32-36) L 06/17/21 21:30 RDW Std Deviation 48.2 fL (36.4-46.3) H 06/17/21 21:30 RDW Coeff of Anny 20.3 % (11.5-14.5) H 06/17/21 21:30 Plt Count 180 K/uL (130-400) 06/17/21 21:30 MPV 8.3 fL (7.4-10.4) 06/17/21 21:30 Immature Gran % (Auto) 0.0 % 06/17/21 21:30 Neut % (Auto) 63.4 % 06/17/21 21:30 Lymph % (Auto) 23.3 % 06/17/21 21:30 [place] % (Auto) 9.5 % 06/17/21 21:30 Eos % (Auto) 2.8 % 06/17/21 21:30 Baso % (Auto) 1.0 % 06/17/21 21:30 Neut # (Auto) 2.54 K/uL (1.4-6.5) 06/17/21 21:30 Lymph # (Auto) 0.93 K/uL (1.2-3.4) L 06/17/21 21:30 [place] # (Auto) 0.38 K/uL (0.11-0.59) 06/17/21 21:30 Eos # (Auto) 0.11 K/uL (0-0.5) 06/17/21 21:30 Baso # (Auto) 0.04 K/uL (0-0.2) 06/17/21 21:30 Immature Gran # (Auto) 0.00 K/uL (0.00-0.02) 06/17/21 21:30 Polychromasia 1+ 06/17/21 21:30 Hypochromasia Present 06/17/21 21:30 Anisocytosis Present 06/17/21 21:30 Ovalocytes 1+ 06/17/21 21:30 Sodium 141 mmol/L (136-145) 06/17/21 21:30 Potassium 3.9 mmol/L (3.5-5.1) 06/17/21 21:30 Chloride 108 mmol/L (98-107) H 06/17/21 21:30 Carbon Dioxide 27 mmol/L (21-32) 06/17/21 21:30 Anion Gap 7.0 (3-11) 06/17/21 21:30 BUN 34 mg/dl (7-18) H 06/17/21 21:30 Creatinine 1.57 mg/dl (0.6-1.4) H 06/17/21 21:30 Est Cr Clr Drug Dosing Not Reportable 06/17/21 21:30 Est GFR ( Amer) 48.6 ml/min 06/17/21 21:30 Est GFR (Non-Af Amer) 41.9 ml/min 06/17/21 21:30 BUN/Creatinine Ratio 21.8 (10-20) H 06/17/21 21:30 Glucose 146 mg/dl (70-99) H 06/17/21 21: Calcium 8.7 mg/dl (8.5-10.1) 06/17/21: Magnesium 2.0 mg/dl (1.8-2.4) 06/17/21 21: Total Bilirubin 0.4 mg/dl (0.2-1) 06/17/21 21: AST 14 U/L (15-37) L 06/17/21 21:30 ALT 19 U/L (12-78) 06/17/21 21:30 Alkaline Phosphatase 119 U/L (45-117) H 06/17/21 21:30 Total Protein 6.5 gm/dl (6.4-8.2) 06/17/21 21: Albumin 3.6 gm/dl (3.4-5.0) 06/17/21: Globulin 2.9 gm/dl (2.5-4.0) 06/17/21 21: Albumin/Globulin Ratio 1.2 (0.9-2) 06/17/21 21:30 Urine Color Yellow 06/17/21:35 Urine Appearance Clear (Clear) 06/17/21: Urine pH 5.0 (4.5-7.5) 06/17/21: Ur Specific Circle 1.010 (1.000-1.030) 06/17/21: Urine Protein Negative (Negative) 06/17/21 21: Urine Glucose (UA) Negative (Negative) 06/17/21: Urine Ketones Negative (Negative) 06/17/21: Urine Blood Negative (Negative) 08/26/21 21:35 Urine Nitrite Negative (Negative) 06/17/21 21:35 Urine Bilirubin Negative (Negative) 06/17/21 21:35 Urine Urobilinogen Negative (Negative) 06/17/21 21:35 Ur Leukocyte Esterase Negative (Negative) 06/17/21 21:35 COVID-19 Eval Order Covid19 at [facility] 06/17/21 21:42 SARS-CoV-2 (PCR) NEGATIVE (Negative) 06/17/21 21:42 Blood Type A Positive 06/17/21 22:52 Antibody Screen NEGATIVE 06/17/21 22:52 Crossmatch See Detail 06/17/21 22:52 Diagnostic Findings Chest x-ray as per interpretation cardiomegaly, atelectasis EKG as per my interpretation : Rate 75, NSR, LAD, LAFB, incomplete RBBB, PVCs
[2021-06-18] MEDS ORDERED: GLUCOSE 10 TABS/TUBE PO PRN (04:28)
[2021-06-18] MEDS ORDERED: GLUCOSE 40% GEL 15 GM TUBE PO PRN (04:28)
[2021-06-18] MEDS ORDERED: SODIUM CHLORIDE 0.9% 250 ML IV PRN ×2 (04:28→06:00)
[2021-06-18] MEDS ORDERED: GLUCAGON FOR INJ 1 MG VIAL SQ PRN (04:28)
[2021-06-18] MEDS ORDERED: DEXTROSE 50% 50 ML SYRINGE IV PRN (04:28)
[2021-06-18] MEDS ORDERED: CARBOHYDRATES FOR HYPOGLYCEMIA PO PRN (04:28)
[2021-06-18] MEDS ORDERED: traMADol HCL 50 MG TABLET PO PRN (04:28)
[2021-06-18] MEDS ORDERED: ACETAMINOPHEN 325 MG TAB PO PRN (04:28)
[2021-06-18] MEDS ORDERED: SODIUM CHLORIDE 0.9% 500 ML IV ONE (04:30)
[2021-06-18] MEDS ORDERED: MELATONIN 3 MG TAB PO PRN (04:39)
[2021-06-18] MEDS: HEPARIN SOD 5,000 UNIT/0.5 ML VIAL SQ SCH ×3 (05:33→21:14)
[2021-06-18] MEDS: INSULIN ASPART 100 UNITS/ML 3 ML PEN SC SCH ×5 (05:38→22:10)
[2021-06-18 05:44] LABS: Hematocrit (blood only) 26.4 % (42-52); Hemoglobin 7.3 g/dL (14.0-18.0); Mean Corpuscular Hgb Conc 27.7 g/dL (32-36); Mean Corpuscular Volume 68.8 fL (80-100); Platelet Count 156 K/uL (130-400); RDW Coefficient of Variation 21.8 % (11.5-14.5); RDW Standard Deviation 54.8 fL (36.4-46.3); Red Blood Count 3.84 M/uL (4.7-6.1); White Blood Count 3.69 K/uL (4.8-10.8)
[2021-06-18 06:13] LABS: BUN Creatinine Ratio 21.5 (10-20); Calcium 8.8 mg/dl (8.5-10.1); Creatinine Clr Calc Pharmacy 39.6 ml/min; Est GFR (African American) 50.1 ml/min; Est GFR (Non-African American) 43.2 ml/min; Potassium 3.8 mmol/L (3.5-5.1)
[2021-06-18 06:19] LABS: Anisocytosis Present; Basophils # (auto) 0.01 K/uL (0-0.2); Basophils % (auto) 0.3 %; Eosinophils # (auto) 0.08 K/uL (0-0.5); Eosinophils % (auto) 2.2 %; Hypochromasia Present; Immature Granulocytes # (auto) 0.01 K/uL (0.00-0.02); Immature Granulocytes % (auto) 0.3 %; Lymphocytes # (auto) 0.84 K/uL (1.2-3.4); Lymphocytes % (auto) 22.8 %; Microcytosis Present; Monocytes # (auto) 0.43 K/uL (0.11-0.59); Monocytes % (auto) 11.7 %; Neutrophils # (auto) 2.32 K/uL (1.4-6.5); Neutrophils % (auto) 62.7 %
[2021-06-18] MEDS ORDERED: SODIUM CHLORIDE 0.45 % 1,000 ML IV ONE (06:21)
[2021-06-18 07:14] LABS: Reticulocyte % 0.8 % (0.5-2.0); Reticulocytes # 0.03 10^6/uL (0.02-0.10)
[2021-06-18 07:30] LABS: INR 1.1 (0.9-1.1); Partial Thromboplastin Ratio 0.9; Partial Thromboplastin Time 23.6 Seconds (21.0-31.0); Prothrombin Time 10.7 Seconds (9.0-12.0)
[2021-06-18 07:38] LABS: Ferritin 7.2 ng/ml (8-388)
[2021-06-18] MEDS: METOPROLOL SUCC 25MG EXT REL TAB PO SCH (08:20)
[2021-06-18] MEDS: ESCITALOPRAM OXALATE 20 MG TAB PO SCH (08:20)
[2021-06-18] MEDS: PANTOprazole 40 MG TAB PO SCH (08:20)
[2021-06-18] MEDS: AMANTADINE HCL 100 MG CAPSULE PO SCH ×2 (08:20→21:13)
[2021-06-18] MEDS: ASPIRIN 81 MG ECTAB PO SCH (08:20)
[2021-06-18] MEDS: buPROPion XL 150 MG TABCR PO SCH (08:20)
[2021-06-18] MEDS: ATORVASTATIN 40 MG TAB PO SCH (08:20)
[2021-06-18] MEDS: cephALEXin 500 MG CAP PO SCH ×2 (08:20→21:13)
--- NOTE | 2021-06-18 08:39 | XRay Report ---
XR chest 1V portable CLINICAL HISTORY: Renal failure. COMPARISON STUDY: Chest CT July 07, 2020. Chest radiograph February 06, 2021. FINDINGS: There are median sternotomy wires and mediastinal surgical clips. Cardiomegaly is unchanged . There is no evidence for pulmonary edema. Pulmonary vascularity is normal. No consolidation is note d. Incidental note is made of multiple old left rib fractures. IMPRESSION: Cardiomegaly. No acute findings. ACT 112: Negative or not required by law. Electronically signed by: Calixto Bai M.D. 06/18/2021 8:38 AM
[2021-06-18] MEDS ORDERED: IRON SUCROSE 200 MG in 0.9 % SODIUM CHLORIDE 100 ML IV ONE (09:00)
--- NOTE | 2021-06-18 09:51 | Consultation Report ---
HEMATOLOGY CONSULTATION DATE OF CONSULTATION: 06/18/2021. REASON FOR CONSULTATION: Refractory iron deficiency anemia. HISTORY OF PRESENT ILLNESS: The patient is a very pleasant 76-year-old gentleman well known to ROBERT conte under my care for refractory iron deficiency anemia, admitted to [facility] on 06/18/2021. He basically came in complaining of fatigue, weakness and abnormal blood work from his primary care provider. Patient has several comorbid issues including iron deficiency. I last sa w this gentleman on 12/03/2020 at which time he had received iron sucrose x3, which completed in late September of 2020. During his visit in November, I was not terribly impressed with his iron studies and thus he then received another series of 3 doses of iron sucrose, which completed on 12/22/2020. This gentleman I suspect was due for followup visit in fact my note alluded to needing to see him in 3 months. However, he reports having back surgery, which may have delayed that particular followup a ppointment. From a symptom standpoint, he claims over the past couple of weeks of malaise and genera lized weakness with associated lightheadedness. He also admitted to shortness of breath on exertion. No fevers, chills or sweats. Laboratories drawn at the PCP's office revealed WBC 3500, hemoglobin 6.7 g/dL and MCV is 68.2, platelets 189,000. Ferritin was 10. Serum iron 16, TIBC 407. He was subs equently sent to the emergency room and is receiving packed RBCs at bedside this morning. PAST MEDICAL HISTORY: Significant for hypertension, hyperlipidemia, Parkinson's dementia, coronary a rtery disease status post coronary artery bypass grafting, moderate mitral regurgitation wandering at rial pacemaker, medullary sponge kidney disease, BPH and again refractory iron deficiency anemia. PAST SURGICAL HISTORY: The patient underwent spine surgery at [facility] in 01/2021. MEDICATIONS: Include metoprolol 25 mg p.o. q. daily, metformin 500 mg p.o. q. daily, cephalexin 500 mg p.o. b.i.d., bupropion 150 mg p.o. q. daily, triamterene/hydrochlorothiazide 1 tablet p.o. q. benjy y, potassium chloride 20 mEq p.o. q. twice a week, melatonin 10 mg p.o. at bedtime p.r.n., magnesium oxide 400 mg p.o. q. daily, furosemide 40 mg p.o. twice weekly, donepezil 10 mg p.o. at bedtime, Prot dayton 40 mg p.o. q. daily, aspirin 81 mg p.o. every q. daily, Celexa 20 mg p.o. q. daily, amantadine 1 00 mg p.o. b.i.d., tamsulosin 0.4 mg p.o. at bedtime, atorvastatin 40 mg p.o. q. daily. ALLERGIES: YONATAN INHIBITORS. FAMILY HISTORY: Father and mother both suffered from hypertension. No first-degree relatives with n eoplasia or hematologic malignancy. SOCIAL HISTORY: Lives with his spouse. He is . Negative for alcohol or illicit substances. He is a nonsmoker. REVIEW OF SYSTEMS: Unobtainable because of the patient's mental status. PHYSICAL EXAMINATION: GENERAL: Very pleasant 76-year-old gentleman, awake, alert, somewhat confused upon questioning. VITAL SIGNS: Temperature 36.9, pulse 71, respiratory rate 18, blood pressure 134/60. SKIN: Warm, dry, noncyanotic without petechia, rash or ecchymosis. HEENT: Head atraumatic, normocephalic. Eyes: PERRLA. EOMI. Sclerae are nonicteric. No conjunctiv al injection. Nares patent without rhinorrhea or discharge. Throat clear. Tongue midline. Mucous membranes are moist. NECK: Supple without JVD or thyromegaly. LYMPH: No cervical, supraclavicular, axillary or inguinal palpable nodes. HEART: Regular rate and rhythm. No clicks, rubs, murmurs or gallops. LUNGS: Clear to auscultation bilaterally. ABDOMEN: Soft, nontender, nondistended, without palpable hepatosplenomegaly. EXTREMITIES: No clubbing, cyanosis or edema. Strength testing not done. NEUROLOGIC: Awake, alert, and again mildly confused this morning. Cranial nerve testing not done. LABORATORY DATA: WBC count 3690, hemoglobin 7.3, MCV 68.8, platelet count 156,000. Sodium 145, pota ssium 3.8, chloride 110, carbon dioxide 28, creatinine 1.53, BUN 33, ferritin 7.2. Serum iron 13. IMPRESSION: 1. Asthenia attributable to anemia. 2. Acute renal failure. PLAN: In summary, it was my pleasure to visit with the patient at bedside. This gentleman is a omara aysha 76-year-old well known to [facility], I saw late last year with refractory iron deficiency anemia at at time. He has had a history of gastrointestinal bleeding with a questionable sources. Colonoscopy performed revealed internal hemorrhoids. Apparently, there has been an ongoing debate on whether thi s gentleman should undergo camera endoscopy. At first glance, I would agree that a camera endoscopy is probably the best option moving forward if full recent scoping procedures have failed to reveal bl eeding source. That said from hematologic standpoint, clearly, his iron levels remain labile. I hav e a handful of patients similar to the patient in my practice and suspect he may require monthly iron administration moving forward. I briefly discussed the monthly approach with the patient; however, would like his family members along as it is not quite clear if he fully understands this concept. T hat said, I agree with transfusional support. Additionally, I will go ahead and proceed with iron vicente crose 400 mg x1 dose. Perhaps a second and third dose could be administered depending on his length of stay. If he is to be discharged over the weekend ensure that he is scheduled for post-hospitaliza tion followup within the next 2 weeks. I have nothing further to add at this point. Thank you very much for allowing me to participate in his care. Job ID: [id number]
[2021-06-18] MEDS: FERROUS SULFATE 325 MG TAB PO SCH (10:17)
[2021-06-18 12:59] LABS: Hematocrit (blood only) 31.1 % (42-52)
--- NOTE | 2021-06-18 15:13 | Hospitalist Progress Note ---
Date of Service June 18, 2021 Assessment & Plan (1) Symptomatic anemia: Plan: Acute on Chronic symptomatic Anemia Iron deficiency Anemia Denies any bleeding issues Patient had extensive work up previously H/O diverticulosis, internal hemorrhoids as per prior colonoscopy FOBT negative while in ED Reticulocyte count normal Peripheral smear consistent with iron deficiency anemia S/P 2 units PRBCs Also received IV Venofer States having multiple transfusions in the past Hb: 6.7>>9.0 Monitor H&H Transfuse PRBCs as needed Appreciate hematology input Started on iron supplements Needs follow-up with hematology upon discharge in 2 weeks Acute renal failure Cr:1.5 Received IV fluids Monitor renal function Avoid nephrotoxic agents as able Hold home diuretics, for now CAD S/P CABG On aspirin, statin, Metoprolol Hypertension BP Stable Continue home meds Parkinson's dementia Continue home meds Recurrent LE cellulitis/history strep bacteremia on chronic Keflex suppression Rx DM II Hold oral meds HbA1C:6.7, May 2021 Continue insulin therapy while in hospital Monitor BGs DVT Px: Heparin SQ Code Status Full code Admission and Anticipated Discharge Date Admission Date: June 18, 2021 Subjective Patient is seen and examined at bedside Tiredness, dyspnea on exertion much improved Denies any bleeding issues Also denies chest pain, dizziness, nausea, abdominal pain Eager to get discharged Review of Systems Review of Systems: All systems reviewed & are unremarkable except as noted in Subjective Physical Exam Physical Exam: Physical Exam: Vitals signs as noted above General Appearance:Moderately built and nourished, no apparent distress Head: normocephalic, Atraumatic Eyes: normal inspection, EOMI Neck: supple, Trachea midline Respiratory/Chest: Normal breath sounds, CTA Cardiovascular: S1, S2, + murmur Abdomen/GI:Soft, Non tender, Bowel sounds present Extremities/Musculoskeletal:normal inspection, B/L LE edema R> L Neurologic/Psych:AAOX3, grossly no focal neurological deficits,+Hearing impairment Skin: normal color, warm Results & Data Results & Data ([facility]) Vital Signs (Past 12 Hours) Vital Signs Temp Pulse Pulse Pulse Resp BP BP 06/18/21 10:20 36.5 C 67 18 143/87 H 06/18/21 09:44 71 06/18/21 09:00 36.4 C L 76 18 133/64 06/18/21 08:02 36.9 C 71 18 134/60 06/18/21 08:00 36.9 C 71 18 134/60 06/18/21 07:30 36.9 C 77 18 146/70 H 06/18/21 07:15 36.5 C 77 18 146/70 H 06/18/21 07:14 36.6 C 70 18 136/71 06/18/21 07:00 36.6 C 65 18 134/66 06/18/21 06:55 36.6 C 65 18 134/66 06/18/21 05:00 75 06/18/21 04:28 36.7 C 72 20 156/66 H 06/18/21 03:30 78 76 28 H 138/89 138/89 06/18/21 03:00 72 27 H 131/66 Pulse Ox 06/18/21 10:20 96 06/18/21 09:44 06/18/21 09:00 96 06/18/21 08:02 95 06/18/21 08:00 96 06/18/21 07:30 96 06/18/21 07:15 95 06/18/21 07:14 95 06/18/21 07:00 96 06/18/21 06:55 96 06/18/21 05:00 06/18/21 04:28 97 06/18/21 03:30 95 06/18/21 03:00 96 Laboratory Results Short CBC 06/17/21 06/18/21 06/18/21 Range/Units 21:30 05:30 12:29 WBC 4.00 L 3.69 L (4.8-10.8) K/uL Hgb 6.7 L* 7.3 L 9.0 L (14.0-18.0) g/dL Hct 24.1 L 26.4 L 31.1 L (42-52) % Plt Count 180 156 (130-400) K/uL BMP 06/17/21 06/18/21 21:30 05:30 Sodium 141 145 Potassium 3.9 3.8 Chloride 108 H 110 H Carbon Dioxide 27 28 BUN 34 H 33 H Creatinine 1.57 H 1.53 H Glucose 146 H 124 H Calcium 8.7 8.8 Liver Function 06/17/21 Range/Units 21:30 Total Bilirubin 0.4 (0.2-1) mg/dl AST 14 L (15-37) U/L ALT 19 (12-78) U/L Alkaline Phosphatase 119 H (45-117) U/L Albumin 3.6 (3.4-5.0) gm/dl Urine 06/17/21 Range/Units 21:35 Urine Color Yellow Urine Appearance Clear (Clear) Urine pH 5.0 (4.5-7.5) Ur Specific [place] 1.010 (1.000-1.030) Urine Protein Negative (Negative) Urine Glucose (UA) Negative (Negative)
[2021-06-18 18:52] LABS: Hematocrit (blood only) 29.9 % (42-52); Hemoglobin 8.9 g/dL (14.0-18.0)
[2021-06-18] MEDS ORDERED: DONEPEZIL HCL 10 MG TAB PO SCH (21:00)
[2021-06-18] MEDS ORDERED: TAMSULOSIN HCL 0.4 MG CAP PO SCH (21:00)
[2021-06-19] MEDS: HEPARIN SOD 5,000 UNIT/0.5 ML VIAL SQ SCH (05:24)
--- NOTE | 2021-06-19 07:11 | Electrocardiogram Report ---
Test Reason : Blood Pressure : / mmHG Vent. Rate : 076 BPM Atrial Rate : 057 BPM P-R Int : 000 ms QRS Dur : 098 ms QT Int : 358 ms P-R-T Axes : 000 -36 064 degrees QTc Int : 402 ms Atrial fibrillation with premature ventricular or aberrantly conducted complexes Left axis deviation Incomplete right bundle branch block Nonspecific ST and T wave abnormality Abnormal ECG When compared with ECG of 11-FEB-2021 08:31, Previous ECG has undetermined rhythm, needs review T wave inversion no longer evident in Lateral leads Confirmed by Nitin Gracia ([id number]) on 06/19/2021 7:10:55 AM Referred By: Michael Hinton Confirmed By:Nitin Gracia
[2021-06-19 07:37] LABS: BUN Creatinine Ratio 19.9 (10-20); Calcium 8.6 mg/dl (8.5-10.1); Est GFR (African American) 59.9 ml/min; Est GFR (Non-African American) 51.7 ml/min; Potassium 3.6 mmol/L (3.5-5.1)
[2021-06-19 08:27] LABS: Hematocrit (blood only) 28.7 % (42-52); Hemoglobin 8.5 g/dL (14.0-18.0)
[2021-06-19] MEDS: ESCITALOPRAM OXALATE 20 MG TAB PO SCH (08:44)
[2021-06-19] MEDS: buPROPion XL 150 MG TABCR PO SCH (08:44)
[2021-06-19] MEDS: METOPROLOL SUCC 25MG EXT REL TAB PO SCH (08:44)
[2021-06-19] MEDS: PANTOprazole 40 MG TAB PO SCH (08:44)
[2021-06-19] MEDS: ATORVASTATIN 40 MG TAB PO SCH (08:44)
[2021-06-19] MEDS: cephALEXin 500 MG CAP PO SCH (08:44)
[2021-06-19] MEDS: ASPIRIN 81 MG ECTAB PO SCH (08:44)
[2021-06-19] MEDS: AMANTADINE HCL 100 MG CAPSULE PO SCH (08:44)
[2021-06-19] MEDS: FERROUS SULFATE 325 MG TAB PO SCH (08:45)
[2021-06-19] MEDS: INSULIN ASPART 100 UNITS/ML 3 ML PEN SC SCH ×2 (08:45→12:08)
[2021-06-19] MEDS ORDERED: IRON SUCROSE 200 MG in 0.9 % SODIUM CHLORIDE 100 ML IV ONE (10:00)
--- NOTE | 2021-06-19 11:42 | Hospitalist Progress Note ---
Date of Service June 19, 2021 Assessment & Plan (1) Symptomatic anemia: Plan: Acute on Chronic symptomatic Anemia Iron deficiency Anemia Denies any bleeding issues Patient had extensive work up previously H/O diverticulosis, internal hemorrhoids as per prior colonoscopy FOBT negative while in ED Reticulocyte count normal Peripheral smear consistent with iron deficiency anemia S/P 2 units PRBCs Also received IV Venofer States having multiple transfusions in the past Hb: 6.7>>8.5 Monitor H&H Transfuse PRBCs as needed Appreciate hematology input Continue Iron supplements Needs follow-up with hematology upon discharge in 2 weeks Acute renal failure Cr:1.5>1.32 Received IV fluids Monitor renal function Avoid nephrotoxic agents as able Resume home diuretics upon discharge CAD S/P CABG On aspirin, statin, Metoprolol Hypertension BP Stable Continue home meds Parkinson's dementia Continue home meds Recurrent LE cellulitis/history strep bacteremia on chronic Keflex suppression Rx DM II Hold oral meds HbA1C:6.7, May 2021 Continue insulin therapy while in hospital Monitor BGs DVT Px: Heparin SQ Code Status Full code Admission and Anticipated Discharge Date Admission Date: June 18, 2021 Subjective Patient is seen and examined at bedside Tiredness, dyspnea resolved Denies any bleeding issues Prefers to get discharged Also denies chest pain, dizziness, nausea, abdominal pain Review of Systems Review of Systems: All systems reviewed & are unremarkable except as noted in Subjective Physical Exam Physical Exam: Physical Exam: Vitals signs as noted above General Appearance:Moderately built and nourished, no apparent distress Head: normocephalic, Atraumatic Eyes: normal inspection, EOMI Neck: supple, Trachea midline Respiratory/Chest: Normal breath sounds, CTA Cardiovascular: S1, S2, + murmur Abdomen/GI:Soft, Non tender, Bowel sounds present Extremities/Musculoskeletal:normal inspection, B/L LE edema R> L Neurologic/Psych:AAOX3, grossly no focal neurological deficits,+Hearing impairment Skin: normal color, warm Results & Data Results & Data ([facility]) Vital Signs (Past 12 Hours) Vital Signs Temp Pulse Pulse Resp BP BP Pulse Ox 06/19/21 08:00 36.5 C 71 20 149/65 H 96 06/19/21 07:08 90 06/19/21 04:28 06/19/21 04:22 36.6 C 68 20 144/75 H 94 06/19/21 01:35 72 Pulse Ox 06/19/21 08:00 06/19/21 07:08 06/19/21 04:28 94 06/19/21 04:22 06/19/21 01:35 Laboratory Results Short CBC 06/18/21 06/18/21 06/19/21 Range/Units 12:29 18:41 06:26 Hgb 9.0 L 8.9 L 8.5 L (14.0-18.0) g/dL Hct 31.1 L 29.9 L 28.7 L (42-52) % BMP 06/19/21 06:27 Sodium 142 Potassium 3.6 Chloride 112 H Carbon Dioxide 25 BUN 26 H Creatinine 1.32 Glucose 93 Calcium 8.6
--- NOTE | 2021-06-19 11:53 | Discharge Summary ---
Date of Service June 19, 2021 Admission HPI Per Admitting Provider History obtained from patient, family, and records. Medical history significant for hypertension, hyperlipidemia, Parkinson's dementia, CAD sp CABG, moderate mitral regurgitation, wandering atrial pacemaker as per records, medullary sponge kidney as per records, BPH, chronic anemia (recent hemoglobin of 10- 11 from January 2021), history recurrent cellulitis on chronic Keflex Rx. Last confinement January 2021 for postop neck pain following [facility] [place] surgery. Patient discharged to [facility] for rehab for about 3 weeks then subsequently discharged to home. Few days history of generalized malaise and weakness, occasional lightheadedness. Patient denies chest pain, headache symptoms. Admits to some shortness of breath on exertion. No cough symptoms. Patient denies abdominal pain/black/bloody stools/hematuria. Home nursing expressed depression concerns per patient as per documentation which patient currently denies. PCP ordered outpatient labs subsequently drawn yesterday morning. WBC 3.5, hemoglobin 6.7, hematocrit 25.7, MCV 68.2, MCH 17.8, MCHC 26.1, RDW 20.3, platelets 189 Neutrophils 58.8%, lymphocytes 26.3%, monocytes 11.1%, absolute lymphocytes 0.92 Moderate anisocytosis, slight hypochromia, microcytosis noted, moderate ovalocytes, slight polychromasia, few schistocytes Serum iron 16, TIBC 407, transferrin saturation percent 4, ferritin 10, vitamin B12 451, folic acid 10.9 Serum TSH within normal limits Outpatient creatinine noted to be 1.5. Patient directed to the ER by PCPs office. FOBT negative as per ER provider. 1 unit packed RBC transfused at the ER. Medical History as above 2019 EGD showed erythematous duodenopathy. 2019 colonoscopy showed diverticulosis, internal hemorrhoids. 2020 wireless capsule endoscopy showed normal appearing small bowel. 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, lives with Admission Exam Per Admitting Provider Physical Exam Physical Exam: GENERAL: Comfortable, pleasant, no respiratory distress SKIN: Pallor , warm HEENT: Pale palpebral conjunctivae, chronic ptosis right, dry buccal mucosa NECK : Supple, short neck, no tenderness CHEST : CTA, no tenderness HEART : RRR, systolic murmur ABDOMEN: Some distention, nontender EXTREMITIES : Minimal LE swelling, no LE tenderness, no other conspicuous deformities noted NEUROLOGIC : Coherent, chronic ptosis right, mild hearing impairment, no facial asymmetry, gait and stance not assessed Principal Diagnosis Acute on Chronic symptomatic Anemia Iron deficiency Anemia Acute Kidney Injury Discharge Data Allergies Allergy/AdvReac Type Severity Reaction Status Date / Time YONATAN Inhibitors AdvReac Mild Cough Verified 06/17/21 23:18 Consultations 06/18/21 04:28 Consult Hematology Routine Hospital Course (1) Symptomatic anemia: Acute on Chronic symptomatic Anemia Iron deficiency Anemia Denies any bleeding issues Patient had extensive work up previously H/O diverticulosis, internal hemorrhoids as per prior colonoscopy FOBT negative while in ED Reticulocyte count normal Peripheral smear consistent with iron deficiency anemia S/P 2 units PRBCs Also received IV Venofer States having multiple transfusions in the past Hb: 6.7>>8.5 Monitor H&H Transfuse PRBCs as needed Appreciate hematology input Continue Iron supplements Needs follow-up with hematology upon discharge in 2 weeks Acute kidney Injury Cr:1.5>1.32 Received IV fluids Monitor renal function Avoid nephrotoxic agents as able Resume home diuretics upon discharge CAD S/P CABG On aspirin, statin, Metoprolol Hypertension BP Stable Continue home meds Parkinson's dementia Continue home meds Recurrent LE cellulitis/history strep bacteremia on chronic Keflex suppression Rx DM II Hold oral meds HbA1C:6.7, May 2021 Continue insulin therapy while in hospital Monitor BGs DVT Px: Heparin SQ Code Status Full code Total Time Total Time Spent Total Time Spent (In Minutes): 42 minutes Discharge Plan Discharge Items Patient Disposition: Home - Self-Care Reason For Visit: SYMPTOMATIC ANEMIA Discharge Diagnosis: Acute on Chronic symptomatic Anemia Iron deficiency Anemia Acute Kidney Injury--Resolved Activity: Per Instructions section Exercise/Sports: Gradually increase as tolerated Non-emergency contact: Primary Care Provider and Specialist Call non-emergency contact if: you have any medication questions, your symptoms worsen, your pain is concerning for you and you have a fever Follow-up/Referrals: Michael Hinton MD [Primary Care Provider] - Diet: Carb Consistent or DM2 and Heart Healthy Addtl Attending Provider Instructions: Follow up with your Primary Care Physician in 1 week Follow-up with your capability lead Dr. Javed in 2 weeks as advised Get Blood test (Complete blood count) in 1 week and follow up with your physician. Consider getting a colonoscopy as outpatient to re-evaluate any other source of bleeding. Seek immediate medical attention if your symptoms reoccur or worsen Please take all medications as instructed on discharge list below. Please call if you have any questions or problems. You can reach a [facility] hospitalist on duty at [facility] 24 hours a day by calling [phone] Pending Studies at Discharge: No Stand-Alone Forms: [facility] [employer], Smoking Cessation Medications and DC Order Prescriptions: New ferrous sulfate 325 mg (65 mg iron) tablet 325 mg PO BID Qty: 60 RF: 1 Continued escitalopram oxalate 20 mg tablet 20 mg PO QAM Qty: 90 RF: 3 amantadine HCl 100 mg capsule 100 mg PO BID RF: 0 donepezil 10 mg tablet 10 mg PO HS RF: 0 triamterene-hydrochlorothiazid 37.5-25 mg tablet 1 tab PO 5XWK RF: 0 melatonin 10 mg tablet 10 mg PO HS PRN (Reason: Sleep) RF: 0 magnesium oxide 400 mg magnesium capsule 400 mg PO QAM RF: 0 furosemide 40 mg tablet 40 mg PO 2XWK Qty: 30 RF: 3 potassium chloride 20 mEq tablet extended release 20 meq PO 2XWK Qty: 30 RF: 3 atorvastatin 40 mg Tablet 40 mg PO QAM RF: 0 tamsulosin 0.4 mg capsule 0.4 mg PO HS Qty: 90 RF: 0 pantoprazole 40 mg tablet,delayed release (DR/EC) 40 mg PO QAM RF: 0 aspirin [Aspirin Low Dose] 81 mg Tablet,Delayed Release (Dr/Ec) 81 mg PO QAM RF: 0 metformin 500 mg tablet extended release 24 hr 500 mg PO QAM RF: 0 bupropion HCl 150 mg tablet extended release 24 hr 150 mg PO DAILY RF: 0 fluocinonide 0.05 % solution 1 applic TOPICAL DAILY PRN (Reason: after bathing) RF: 0 metoprolol succinate 25 mg tablet extended release 24 hr 25 mg PO QAM RF: 0 cephalexin 500 mg capsule 500 mg PO BID RF: 0 Discharge Orders: Discharge Order (Routine); Ordered 06/19/21 Ordered By: Seven Amador Admission Data Admit Date/Time: 06/18/21 01:23 Attending Provider: Seven Amador Admit Provider: Eduardo Echeverria Primary Care Provider: Michael Hinton Other Providers: Dominick Javed V. Other Interventions: Discharge Summary Assessment (RN) Last Done: 06/19/21 12:26
== END 2021-06-19 13:28 | disposition home or self-care (01) | DRG 812 ==
LOC: ED 20:56 → 2N 06-18 01:23
DX: G31.83 Neurocognitive disorder with Lewy bodies; R53.1 Weakness; I25.10 Atherosclerotic heart disease of native coronary artery without angina pectoris; D50.9 Iron deficiency anemia, unspecified; Z79.82 Long term (current) use of aspirin; Z79.84 Long term (current) use of oral hypoglycemic drugs; E78.5 Hyperlipidemia, unspecified; N40.0 Benign prostatic hyperplasia without lower urinary tract symptoms; E86.0 Dehydration; I34.0 Nonrheumatic mitral (valve) insufficiency; Q61.5 Medullary cystic kidney; F02.80 Dementia in other diseases classified elsewhere, unspecified severity, without behavioral disturbance, psychotic disturbance, mood disturbance, and anxiety; I10 Essential (primary) hypertension; N17.9 Acute kidney failure, unspecified; E11.9 Type 2 diabetes mellitus without complications; Z95.1 Presence of aortocoronary bypass graft; H90.3 Sensorineural hearing loss, bilateral

== ENCOUNTER 2021-07-01 14:05 | Inpatient (IN) ==
[2021-07-01] MEDS ORDERED: SODIUM CHLORIDE 0.9% 1000ML 1,000 ML IV SCH (15:00)
[2021-07-01 15:08] LABS: Basophils # (auto) 0.02 K/uL (0-0.2); Basophils % (auto) 0.4 %; Eosinophils # (auto) 0.07 K/uL (0-0.5); Eosinophils % (auto) 1.4 %; Hemoglobin 10.5 g/dL (14.0-18.0); Immature Granulocytes # (auto) 0.02 K/uL (0.00-0.02); Immature Granulocytes % (auto) 0.4 %; Lymphocytes # (auto) 0.94 K/uL (1.2-3.4); Lymphocytes % (auto) 18.6 %; Mean Corpuscular Hemoglobin 22.2 pg (25-34); Mean Corpuscular Hgb Conc 29.2 g/dL (32-36); Mean Corpuscular Volume 76.1 fL (80-100); Monocytes # (auto) 0.38 K/uL (0.11-0.59); Monocytes % (auto) 7.5 %; Neutrophils # (auto) 3.63 K/uL (1.4-6.5); Neutrophils % (auto) 71.7 %; Platelet Count 192 K/uL (130-400); RDW Coefficient of Variation 28.5 % (11.5-14.5); RDW Standard Deviation 76.6 fL (36.4-46.3); Red Blood Count 4.73 M/uL (4.7-6.1); White Blood Count 5.06 K/uL (4.8-10.8)
[2021-07-01 15:16] LABS: Alanine Aminotransferase 22 U/L (12-78); Albumin Level 3.6 gm/dl (3.4-5.0); Aspartate Aminotransferase 15 U/L (15-37); BUN Creatinine Ratio 17.7 (10-20); Blood Urea Nitrogen 26 mg/dl (7-18); Calcium 8.9 mg/dl (8.5-10.1); Carbon Dioxide 27 mmol/L (21-32); Chloride 109 mmol/L (98-107); Creatinine Clr Calc Pharmacy 38.5 ml/min; Est GFR (African American) 53.5 ml/min; Est GFR (Non-African American) 46.1 ml/min; Glucose 116 mg/dl (70-99); Magnesium 2.3 mg/dl (1.8-2.4); Potassium 3.8 mmol/L (3.5-5.1); Sodium 141 mmol/L (136-145)
[2021-07-01 15:27] LABS: Albumin Globulin Ratio 1.3 (0.9-2); Alkaline Phosphatase 125 U/L (45-117); Bilirubin,Total 0.4 mg/dl (0.2-1); Globulin 2.8 gm/dl (2.5-4.0); Total Protein 6.4 gm/dl (6.4-8.2); Troponin I < 0.015 ng/ml (0-0.045)
[2021-07-01 15:37] LABS: Anisocytosis Present; Hypochromasia Present; Ovalocytes 1+
--- NOTE | 2021-07-01 15:59 | CT Scan Report ---
HEAD CT NONCONTRAST CT DOSE: 537.48 mGy.cm HISTORY: fall, slurred speech TECHNIQUE: Multiaxial CT images of the head were performed without the use of intravenous contrast. A utomated exposure control was utilized for this study. A dose lowering technique was utilized adheri ng to the principles of ALARA. Comparison: Head CT 12/09/2019. Findings: The paranasal sinuses are clear. Moderate bilateral mastoid effusions, unchanged. The larissa rium and skull base are intact. Stable mild ventriculomegaly. This is nonspecific but could be due to central volume loss. Left frontal scalp hematoma is noted.. There is no mass, hematoma, midline shif t, or acute infarct. Impression: Left frontal scalp hematoma. Otherwise, no acute intracranial abnormality. ACT 112: Negative or not required by law. Electronically signed by: José Miguel Rock M.D. 07/01/2021 3:57 PM
--- NOTE | 2021-07-01 16:00 | Emergency Department Note ---
Impression & Plan Weakness, Slurred speech, Fall, CHI (closed head injury) ED Provider Note INFORMANT: Patient ED PROVIDER(S): Bassam Hull MD CHIEF COMPLAINT: Fall PLAN: Disposition: Admitted Condition: Good Outpatient prescription management: none Referral: None MEDICAL DECISION MAKING: Patient presented to emergency department after having a fall and suffering a head injury. A CT scan was performed and did not reveal any intracranial traumatic findings. Soft tissue hematoma noted. He underwent a work-up because of his weakness. ECG did not show any acute findings. His CBC showed a mild anemia but improved since prior. Chest x-ray was negative. Chemistry panel and urinalysis were negative. The patient had attempts at orthostatic testing and ambulation. He failed. He was unable to stand up. Given his weakness he needs further management in the hospital. He is not safe to go home. Patient and were in agreement. [facility] Patient was evaluated in the ER and admitted for further management. Triage Nursing notes reviewed and agree them. Vital Signs: reviewed and remarkable for no significant abnormalities Differential diagnosis: Infection, dehydration, metabolic abnormality, hypo/hyperglycemia, electrolyte disturbance, anemia, hypoxia, cardiac sources, intracerebral event, toxicologic, neurologic, as well as other pathologies. Diagnostics interpreted by me: ECG: Twelve-lead ECG reveals sinus bradycardia first-degree AV block at 59 bpm. Left axis deviation. Incomplete right bundle branch block. Inferior Q waves. Cardiac Monitoring: Cardiac monitoring ordered by me: The patient was placed on continuous cardiac monitoring and observed. It revealed a normal sinus rhythm at 69 beats per minute without ectopy or evidence of dysrhythmia. Imaging studies: Head CT: A noncontrast CT scan of the head was performed and was negative for tumor, fracture, intracranial hemorrhage, or other acute pathology. Chest x-ray. Findings: A chest x-ray was performed and revealed no pneumothorax, effusion, infiltrate, pulmonary edema, free air under the diaphragm, or wide mediastinum. Impression: No acute disease. HPI: The patient is a 76 year old male who presents to the Emergency Room with complaints of a fall. 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 The patient also notes the following associated symptoms, bruising and swelling on the forehead. The patient has taken no medication for relieving factors. Current pain is rated as 0/10. Pt recently admitted for anemia and transfused. Had an infusion yesterday at the cancer center for his anemia. Been feeling weaker. Patient reported had slurred speech right after fall and notes when he is tired. None now. Pt denies LOC, headache, fevers, chills, diaphoresis, visual changes, neck pain, chest pain, breathing difficulties, nausea, vomiting, a bdominal pain, back pain, melena, hematochezia, urinary symptoms, numbness, lymphadenopathy, rash, or other complaints. ROS: See above HPI for pertinent positives & negatives. A total of 10 systems reviewed and were otherwise negative. PAST MEDICAL HISTORY:See Below , anemia PAST SURGICAL HISTORY:See Below, FAMILY HISTORY:See Below SOCIAL HISTORY:See Below, HOME MEDICATIONS:See Below ALLERGIES:See Below VITALS:See Below PHYSICAL EXAMINATION: GENERAL: Awake, tired-appearing, in no distress HENT: Normocephalic, large left forehead hematoma. Oropharynx unremarkable. EYES: Normal conjunctiva. Sclera non-icteric. NECK: Inspection normal. Non-tender. Supple. No nuchal rigidity. FROM. No masses. RESPIRATORY: Clear to auscultation. No wheezes. No rales. Normal respiratory effort. CARDIAC: Normal rate. Normal rhythm. No murmurs. No rubs. Extremities warm and well perfused. Pulses equal. No JVD. GI: Soft, non-distended. No tenderness to palpation. No rebound or guarding. No masses. RECTAL: Deferred. MUSCULOSKELETAL: Atraumatic. Chest examination reveals no tenderness. The back is symmetrical on inspection without obvious abnormality. There is no CVA tenderness to palpation. No joint edema. LOWER EXTREMITIES: Calves are equal size bilaterally and non-tender. No edema. No discoloration. NEURO: Normal sensorium. General weakness, 4 out of 5 strength. Patient is very tremulous. He has 1+ reflexes in the lower extremities which are symmetric. No focal sensory or motor deficits noted. SKIN: No rash or jaundice noted. Bassam Hull MD Past Med/Surg History Medical History (Updated 07/01/21 @ 23:28 by Bassam Hull MD) Adverse reaction to anesthetic agent Anxiety Arthritis Atrial ectopy BPH (benign prostatic hyperplasia) Carpal tunnel syndrome Cataracts, bilateral Coronary aneurysm (2011) Dementia Diabetic ulcer of right heel associated with diabetes mellitus due to underlying condition, with fat layer exposed Diastolic dysfunction DM type 2 (diabetes mellitus, type 2) HTN (hypertension) HUNTER (iron deficiency anemia) Lower extremity edema Lumbar spondylosis Moderate mitral regurgitation Orthostatic hypotension (07/2019) Parkinsonism Peripheral arterial disease Recurrent cellulitis of lower extremity Seasonal allergies Sensorineural hearing loss (SNHL) of both ears Sepsis due to group B Streptococcus (2018) 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 Father Hypertension Mother Hypertension Brother Allergies Asthma Denies family history of Prostate cancer Hearing loss No family history of adverse response to anesthesia No family history of bleeding disorder Heart disease Cancer Stroke Social History Smoking Status: Never smoker Hx Alcohol Use: Yes Alcohol type: beer Hx Substance Use: No Preferred Language: Portuguese Communication Ability: Effective Fire Safety Director Required: No Beliefs That Will Affect Care: None marital status: Current Living Situation: Spouse Current Living Situation Comment: Other Information That Helps Us Care for You: No Feels Safe at Home: Yes Safety Concerns: Feels Safe At This Time Assistive Devices: Cane, Glasses, Hearing Aid - Bilateral and Walker Allergies Allergies Allergy/AdvReac Type Severity Reaction Status Date / Time YONATAN Inhibitors AdvReac Mild Cough Verified 07/01/21 15:25 Home Meds Home Medications Medication Instructions Recorded Confirmed atorvastatin 40 mg tablet 40 mg PO QAM 09/02/18 07/01/21 amantadine HCl 100 mg capsule 100 mg PO BID 05/22/20 07/01/21 aspirin 81 mg tablet,delayed 81 mg PO QAM 02/02/21 07/01/21 release (Aspirin Low Dose) pantoprazole 40 mg tablet,delayed 40 mg PO QAM 02/02/21 07/01/21 release donepezil 10 mg tablet 10 mg PO HS 05/11/21 07/01/21 magnesium oxide 400 mg PO QAM 05/11/21 07/01/21 melatonin 10 mg tablet 10 mg PO HS PRN 05/11/21 07/01/21 triamterene 37.5 1 tab PO 5XWK tab 05/11/21 07/01/21 mg-hydrochlorothiazide 25 mg tablet bupropion HCl 150 mg 24 hr tablet, 150 mg PO DAILY 06/17/21 07/01/21 extended release cephalexin 500 mg capsule 500 mg PO BID 06/17/21 07/01/21 fluocinonide 0.05 % topical 1 applic TOPICAL DAILY PRN 06/17/21 07/01/21 solution metformin 500 mg tablet,extended 500 mg PO QAM 06/17/21 07/01/21 release 24 hr metoprolol succinate 25 mg 25 mg PO QAM 06/17/21 07/01/21 tablet,extended release 24 hr Previous Rx's Medication Instructions Recorded tamsulosin 0.4 mg capsule 0.4 mg PO HS #90 cap 12/11/19 escitalopram oxalate 20 mg tablet 20 mg PO QAM #90 tab 01/11/21 furosemide 40 mg tablet 40 mg PO 2XWK #30 tab 05/11/21 potassium chloride 20 mEq 20 meq PO 2XWK #30 tab 05/11/21 tablet,extended release ferrous sulfate 325 mg (65 mg 325 mg PO BID #60 tab 06/19/21 iron) tablet Results & Data (ED) Vital Signs Vital Signs - 24 hr 07/01/21 14:38 07/01/21 16:38 07/01/21 16:57 Temperature 36.9 C 37 C Temperature Source Oral Oral Pulse Rate - Lying Pulse Rate - Sitting Pulse Rate 59 L 59 L Pulse Rate [Left Finger] Respiratory Rate 18 18 18 Respiratory Depth Normal Normal Blood Pressure - Lying Blood Pressure - Sitting Blood Pressure 128/57 L Blood Pressure [Right Arm] 132/53 L Blood Pressure Mean 80 Blood Pressure Mean [Right Arm] 79 Blood Pressure Position Lying Pulse Oximetry 94 95 95 Oxygen Delivery Method Room Air Room Air Room Air Sepsis Recent Fever Within 48 Hours No Sepsis New/Unexplained Change in Mental Status No Sepsis Action Taken by Nursing No Action Required 07/01/21 17:01 07/01/21 17:30 07/01/21 17:49 Temperature Temperature Source Pulse Rate - Lying 59 L Pulse Rate - Sitting 79 Pulse Rate 58 L 58 L Pulse Rate [Left Finger] Respiratory Rate 28 H 23 Respiratory Depth Blood Pressure - Lying 150/83 H Blood Pressure - Sitting 137/62 Blood Pressure 142/65 H 153/66 H Blood Pressure [Right Arm] Blood Pressure Mean 90 95 Blood Pressure Mean [Right Arm] Blood Pressure Position Pulse Oximetry Oxygen Delivery Method Sepsis Recent Fever Within 48 Hours Sepsis New/Unexplained Change in Mental Status Sepsis Action Taken by Nursing 07/01/21 18:00 07/01/21 18:01 Temperature 37.1 C Temperature Source Oral Pulse Rate - Lying Pulse Rate - Sitting Pulse Rate 60 Pulse Rate [Left Finger] 79 Respiratory Rate 22 24 Respiratory Depth Normal Blood Pressure - Lying Blood Pressure - Sitting Blood Pressure 144/63 H Blood Pressure [Right Arm] 137/62 Blood Pressure Mean 90 Blood Pressure Mean [Right Arm] 87 Blood Pressure Position Pulse Oximetry 95 Oxygen Delivery Method Room Air Sepsis Recent Fever Within 48 Hours Sepsis New/Unexplained Change in Mental Status Sepsis Action Taken by Nursing Laboratory Data Result diagrams: 07/01/21 14:29 07/01/21 14:29 Lab Results 07/01/21 07/01/21 07/01/21 Range/Units 14:29 14:29 15:05 WBC 5.06 (4.8-10.8) K/uL RBC 4.73 (4.7-6.1) M/uL Hgb 10.5 L (14.0-18.0) g/dL Hct 36.0 L (42-52) % MCV 76.1 L (80-100) fL MCH 22.2 L (25-34) pg MCHC 29.2 L (32-36) g/dL RDW Std Deviation 76.6 H (36.4-46.3) fL RDW Coeff of Anny 28.5 H (11.5-14.5) % Plt Count 192 (130-400) K/uL MPV 9.0 (7.4-10.4) fL Immature Gran % (Auto) 0.4 % Neut % (Auto) 71.7 % Lymph % (Auto) 18.6 % Moca % (Auto) 7.5 % Eos % (Auto) 1.4 % Baso % (Auto) 0.4 % Neut # (Auto) 3.63 (1.4-6.5) K/uL Lymph # (Auto) 0.94 L (1.2-3.4) K/uL Moca # (Auto) 0.38 (0.11-0.59) K/uL Eos # (Auto) 0.07 (0-0.5) K/uL Baso # (Auto) 0.02 (0-0.2) K/uL Immature Gran # (Auto) 0.02 (0.00-0.02) K/uL Hypochromasia Present Anisocytosis Present Ovalocytes 1+ Sodium 141 (136-145) mmol/L Potassium 3.8 (3.5-5.1) mmol/L Chloride 109 H (98-107) mmol/L Carbon Dioxide 27 (21-32) mmol/L Anion Gap 5.0 (3-11) BUN 26 H (7-18) mg/dl Creatinine 1.45 H (0.6-1.4) mg/dl Est Cr Clr Drug Dosing 38.5 ml/min Est GFR ( Amer) 53.5 ml/min Est GFR (Non-Af Amer) 46.1 ml/min BUN/Creatinine Ratio 17.7 (10-20) Glucose 116 H (70-99) mg/dl Calcium 8.9 (8.5-10.1) mg/dl Magnesium 2.3 (1.8-2.4) mg/dl Total Bilirubin 0.4 (0.2-1) mg/dl AST 15 (15-37) U/L ALT 22 (12-78) U/L Alkaline Phosphatase 125 H (45-117) U/L Troponin I < 0.015 (0-0.045) ng/ml Total Protein 6.4 (6.4-8.2) gm/dl Albumin 3.6 (3.4-5.0) gm/dl Globulin 2.8 (2.5-4.0) gm/dl Albumin/Globulin Ratio 1.3 (0.9-2) TSH 2.250 (0.300-4.500) uIu/ml Urine Color Urine Appearance (Clear) Urine pH (4.5-7.5) Ur Specific [place] (1.000-1.030) Urine Protein (Negative) Urine Glucose (UA) (Negative) Urine Ketones (Negative) Urine Blood (Negative) Urine Nitrite (Negative) Urine Bilirubin (Negative) Urine Urobilinogen (Negative) Ur Leukocyte Esterase (Negative) Urine WBC (Auto) (0-5) /hpf Urine RBC (Auto) (0-4) /hpf U Hyaline Cast (Auto) (0-5) /lpf U Epithel Cells (Auto) (0-5) /lpf Urine Bacteria (Auto) (Negative) COVID-19 Eval Order SARS-CoV-2 (PCR) (Negative) Blood Type A Positive Antibody Screen NEGATIVE 07/01/21 07/01/21 07/01/21 Range/Units 16:20 18:10 18:10 WBC (4.8-10.8) K/uL RBC (4.7-6.1) M/uL Hgb (14.0-18.0) g/dL Hct (42-52) % MCV (80-100) fL MCH (25-34) pg MCHC (32-36) g/dL RDW Std Deviation (36.4-46.3) fL RDW Coeff of Anny (11.5-14.5) % Plt Count (130-400) K/uL MPV (7.4-10.4) fL Immature Gran % (Auto) % Neut % (Auto) % Lymph % (Auto) % Moca % (Auto) % Eos % (Auto) % Baso % (Auto) % Neut # (Auto) (1.4-6.5) K/uL Lymph # (Auto) (1.2-3.4) K/uL Moca # (Auto) (0.11-0.59) K/uL Eos # (Auto) (0-0.5) K/uL Baso # (Auto) (0-0.2) K/uL Immature Gran # (Auto) (0.00-0.02) K/uL Hypochromasia Anisocytosis Ovalocytes Sodium (136-145) mmol/L Potassium (3.5-5.1) mmol/L Chloride (98-107) mmol/L Carbon Dioxide (21-32) mmol/L Anion Gap (3-11) BUN (7-18) mg/dl Creatinine (0.6-1.4) mg/dl Est Cr Clr Drug Dosing ml/min Est GFR ( Amer) ml/min Est GFR (Non-Af Amer) ml/min BUN/Creatinine Ratio (10-20) Glucose (70-99) mg/dl Calcium (8.5-10.1) mg/dl Magnesium (1.8-2.4) mg/dl Total Bilirubin (0.2-1) mg/dl AST (15-37) U/L ALT (12-78) U/L Alkaline Phosphatase (45-117) U/L Troponin I (0-0.045) ng/ml Total Protein (6.4-8.2) gm/dl Albumin (3.4-5.0) gm/dl Globulin (2.5-4.0) gm/dl Albumin/Globulin Ratio (0.9-2) TSH (0.300-4.500) uIu/ml Urine Color Yellow Urine Appearance Clear (Clear) Urine pH 5.0 (4.5-7.5) Ur Specific [place] 1.018 (1.000-1.030) Urine Protein Trace H (Negative) Urine Glucose (UA) Negative (Negative) Urine Ketones Negative (Negative) Urine Blood Negative (Negative) Urine Nitrite Negative (Negative) Urine Bilirubin Negative (Negative) Urine Urobilinogen Negative (Negative) Ur Leukocyte Esterase Negative (Negative) Urine WBC (Auto) 0 (0-5) /hpf Urine RBC (Auto) 0-4 (0-4) /hpf U Hyaline Cast (Auto) 1-5 (0-5) /lpf U Epithel Cells (Auto) 0-5 (0-5) /lpf Urine Bacteria (Auto) Negative (Negative) COVID-19 Eval Order Covid19 at [facility] SARS-CoV-2 (PCR) NEGATIVE (Negative) Blood Type Antibody Screen Administered Medications Amantadine HCl (Amantadine Hcl 100 Mg Capsule) 100 mg PO BID [facility] Stop: 07/31/21 22:03 Last Admin: 07/01/21 23:11 Dose: 100 mg Documented by: [id number] Cephalexin HCl (Cephalexin 500 Mg Cap) 500 mg PO BID [facility]; Protocol Stop: 07/08/21 22:03 Last Admin: 07/01/21 23:10 Dose: 500 mg Documented by: [id number] Donepezil HCl (Donepezil Hcl 10 Mg Tab) 10 mg PO HS [facility] Stop: 07/31/21 22:03 Last Admin: 07/01/21 23:11 Dose: 10 mg Documented by: [id number] Ferrous Sulfate (Ferrous Sulfate 325 Mg Tab) 325 mg PO BID [facility] Stop: 07/31/21 22:03 Last Admin: 07/01/21 23:11 Dose: 325 mg Documented by: [id number] Insulin Aspart (Insulin Aspart 100 Units/Ml 3 Ml Pen) 0 units SC ACHS JEANETH Stop: 07/31/21 22:03 Last Admin: 07/01/21 23:11 Dose: Not Given Documented by: [id number] Tamsulosin HCl (Tamsulosin Hcl 0.4 Mg Cap) 0.4 mg PO HS JEANETH Stop: 07/31/21 22:03 Last Admin: 07/01/21 23:11 Dose: 0.4 mg Documented by: [id number] Discontinued Medications Gadobutrol (Gadobutrol 65ml Vial) 7.5 ml IV ONCE ONE Stop: 07/01/21 21:37 Last Admin: 07/01/21 21:36 Dose: 7.5 ml Documented by: [id number] Sodium Chloride (Nss 1000ml) 1,000 mls @ 125 mls/hr IV .Q8H JEANETH Stop: 07/01/21 22:59 Last Infusion: 07/01/21 22:09 Dose: 0 mls/hr Documented by: [id number] Admin: 07/01/21 15:45 Dose: 125 mls/hr Documented by: [id number] Imaging Data Radiologist's Impression: Chest X-Ray 07/01/21 14:59 XR chest 1V portable HISTORY: 76 years-old Male weakness acute weakness COMPARISON: Chest radiograph 06/17/2021 TECHNIQUE: Portable AP view of the chest FINDINGS: Cardiac silhouette is enlarged. Prior median sternotomy with findings suggestive of CABG. Unchanged mild right hemidiaphragmatic elevation. There is no pneumothorax, pleural effusion, airspace consolidation or overt pulmonary edema. Degenerative changes of the shoulders and spine. Healed chronic left-sided rib fractures. IMPRESSION: Cardiomegaly without acute process. ACT 112: Negative or not required by law. The above report was generated using voice recognition software. It may contain grammatical, syntax or spelling errors. Electronically signed by: David Stewart M.D. 07/01/2021 4:[address] 07/01/21 14:[address] DOSE: 537.48 mGy.cm HISTORY: fall, slurred speech TECHNIQUE: Multiaxial CT images of the head were performed without the use of intravenous contrast. Automated exposure control was utilized for this study. A dose lowering technique was utilized adhering to the principles of ALARA. Comparison: Head CT 12/09/2019. Findings: The paranasal sinuses are clear. Moderate bilateral mastoid effusions, unchanged. The calvarium and skull base are intact. Stable mild ventriculomegaly. This is nonspecific but could be due to central volume loss. Left frontal scalp hematoma is noted.. There is no mass, hematoma, midline shift, or acute infarct. Impression: Left frontal scalp hematoma. Otherwise, no acute intracranial abnormality. ACT 112: Negative or not required by law. Electronically signed by: José Miguel Rock M.D. 07/01/2021 3:57 PM Discharge Plan Visit Data Chief Complaint: Fall Stated Complaint: FALL, RIGHT SIDE WEAKNESS ED Provider: Bassam Hull Discharge Problem: Weakness, Slurred speech, Fall, CHI (closed head injury) Patient Disposition: Admitted As Inpatient Discharge Instructions Interventions: ED Discharge Assessment Last Done: 07/01/21 20:57
--- NOTE | 2021-07-01 16:50 | XRay Report ---
XR chest 1V portable HISTORY: 76 years-old Male weakness acute weakness COMPARISON: Chest radiograph 06/17/2021 TECHNIQUE: Portable AP view of the chest FINDINGS: Cardiac silhouette is enlarged. Prior median sternotomy with findings suggestive of CABG. Unchanged m ild right hemidiaphragmatic elevation. There is no pneumothorax, pleural effusion, airspace consolida tion or overt pulmonary edema. Degenerative changes of the shoulders and spine. Healed chronic left-s ided rib fractures. IMPRESSION: Cardiomegaly without acute process. ACT 112: Negative or not required by law. The above report was generated using voice recognition software. It may contain grammatical, syntax o r spelling errors. Electronically signed by: David Stewart M.D. 07/01/2021 4:49 PM
[2021-07-01 16:51] LABS: Appearance Urine Clear (Clear); Bacteria Urine Automated Negative (Negative); Bilirubin Urine Negative (Negative); Blood Urine Negative (Negative); Color Urine Yellow; Epithelial Cell Urine Auto 0-5 /lpf (0-5); Glucose Urine UA Negative (Negative); Ketones Urine Negative (Negative); Leukocyte Esterase Urine Negative (Negative); Nitrite Urine Negative (Negative); Protein Urine Trace (Negative); RBC Urine Automated 0-4 /hpf (0-4); Specific Gravity Urine 1.018 (1.000-1.030); Urobilinogen Urine Negative (Negative); WBC Urine Automated 0 /hpf (0-5)
--- NOTE | 2021-07-01 20:35 | History & Physical Report ---
Date of Service July 01, 2021 Assessment & Plan (1) Fall: (2) Ambulatory dysfunction: (3) Parkinsonism: Plan: -Admit to [facility] -Patient presenting from home with ambulatory dysfunction and fall x 2 with resulting left frontal scalp hematoma -Head CT negative for acute intracranial findings -Given patient's underlying Parkinson's, diabetic neuropathy, and anemia suspect that ambulatory dysfunction is multifactorial -Given underlying Parkinson's, patient is at risk for orthostatic hypotension, therefore will monitor orthostatic BPs -Check brain MRI for completeness -Follows with neurology at [facility] in [place] -PT/OT, ?? Placement to [facility] (4) HUNTER (iron deficiency anemia): Plan: -Hgb stable at 10.5 -Per daughter, patient received iron transfusion on 06/30 -Follows with Dr. Rueda (5) DM type 2 (diabetes mellitus, type 2): Plan: -Hgb A1c 6.7 05/2021 -Hold oral agents and utilize NovoLog per protocol while hospitalized (6) Atrial ectopy: Plan: -Controlled with metoprolol (7) Recurrent cellulitis of lower extremity: Plan: -On chronic suppression therapy with cephalexin, continue (8) Lower extremity edema: (9) Diastolic dysfunction: Plan: -Lower extreme edema seems to be at baseline -Continue home regimen of Maxide and furosemide (10) DVT prophylaxis: Plan: -SCDs due to scalp hematoma History of Present Illness Chief Complaint: Fall Primary Care Provider: Michael Hinton MD 76-year-old male with PMH DM type II, neuropathy, CAD s/p CABG, HTN, wandering atrial pacemaker, CKD stage III, BPH, Parkinson's, dementia, HUNTER, and other problems to below who presents to the ED after experiencing a fall at home. Patient recently admitted to [facility] 06/18-06/19 for acute on chronic iron deficiency anemia. Patient received PRB transfusion at that time. Patient follows with Dr. Rueda and per the daughter received in iron and blood transfusion in the office yesterday. Over the past couple of days, patient has had increased difficulty ambulating. Today, he suffered 2 falls at home and struck his head. Patient denies associated lightheadedness and dizziness. No loss of consci ousness. Denies unilateral weakness, numbness, tingling. No difficulty speaking or understanding, facial droop. Otherwise has been feeling okay. Has chronic lower extremity edema which is unchanged baseline. Denies any other recent illnesses, fevers, chills. No chest pain or shortness of breath. Denies abdominal pain, nausea, vomiting, diarrhea. No urinary symptoms. In the ED, patient is found to have a left forehead hematoma. Labs are unremarkable/at patient's baseline. Patient is hemodynamically stable. He was given IVF. Allergies Allergy/AdvReac Type Severity Reaction Status Date / Time YONATAN Inhibitors AdvReac Mild Cough Verified 07/01/21 15:25 Home Medications Medication Instructions Recorded Confirmed Type atorvastatin 40 mg tablet 40 mg PO QAM 09/02/18 07/01/21 History tamsulosin 0.4 mg capsule 0.4 mg PO HS #90 cap 12/11/19 07/01/21 Rx amantadine HCl 100 mg capsule 100 mg PO BID 05/22/20 07/01/21 History escitalopram oxalate 20 mg tablet 20 mg PO QAM #90 tab 01/11/21 07/01/21 Rx aspirin 81 mg tablet,delayed 81 mg PO QAM 02/02/21 07/01/21 History release (Aspirin Low Dose) pantoprazole 40 mg tablet,delayed 40 mg PO QAM 02/02/21 07/01/21 History release donepezil 10 mg tablet 10 mg PO HS 05/11/21 07/01/21 History furosemide 40 mg tablet 40 mg PO 2XWK #30 tab 05/11/21 07/01/21 Rx magnesium oxide 400 mg PO QAM 05/11/21 07/01/21 History melatonin 10 mg tablet 10 mg PO HS PRN 05/11/21 07/01/21 History potassium chloride 20 mEq 20 meq PO 2XWK #30 tab 05/11/21 07/01/21 Rx tablet,extended release triamterene 37.5 1 tab PO 5XWK tab 05/11/21 07/01/21 History mg-hydrochlorothiazide 25 mg tablet bupropion HCl 150 mg 24 hr tablet, 150 mg PO DAILY 06/17/21 07/01/21 History extended release cephalexin 500 mg capsule 500 mg PO BID 06/17/21 07/01/21 History fluocinonide 0.05 % topical 1 applic TOPICAL DAILY PRN 06/17/21 07/01/21 History solution metformin 500 mg tablet,extended 500 mg PO QAM 06/17/21 07/01/21 History release 24 hr metoprolol succinate 25 mg 25 mg PO QAM 06/17/21 07/01/21 History tablet,extended release 24 hr ferrous sulfate 325 mg (65 mg 325 mg PO BID #60 tab 06/19/21 07/01/21 Rx iron) tablet Past Med/Surg History Medical History (Updated 07/01/21 @ 23:28 by Bassam Hull MD) Adverse reaction to anesthetic agent Anxiety Arthritis Atrial ectopy BPH (benign prostatic hyperplasia) Carpal tunnel syndrome Cataracts, bilateral Coronary aneurysm (2011) Dementia Diabetic ulcer of right heel associated with diabetes mellitus due to underlying condition, with fat layer exposed Diastolic dysfunction DM type 2 (diabetes mellitus, type 2) HTN (hypertension) HUNTER (iron deficiency anemia) Lower extremity edema Lumbar spondylosis Moderate mitral regurgitation Orthostatic hypotension (07/2019) Parkinsonism Peripheral arterial disease Recurrent cellulitis of lower extremity Seasonal allergies Sensorineural hearing loss (SNHL) of both ears Sepsis due to group B Streptococcus (2017) 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 Father Hypertension Mother Hypertension Brother Allergies Asthma Denies family history of Prostate cancer Hearing loss No family history of adverse response to anesthesia No family history of bleeding disorder Heart disease Cancer Stroke Social History Smoking Status: Never smoker Hx Alcohol Use: Yes Alcohol type: beer Hx Substance Use: No Preferred Language: Wolof Communication Ability: Effective Children'S Counselor Required: No Beliefs That Will Affect Care: None marital status: Current Living Situation: Spouse Current Living Situation Comment: Other Information That Helps Us Care for You: No Feels Safe at Home: Yes Safety Concerns: Feels Safe At This Time Assistive Devices: Glasses and Walker Review of Systems Review of Systems: ROS per HPI, all other systems reviewed and negative Physical Exam Constitutional: WD/WN, vitals as above Eyes: PERRL, conjunctivae normal, anicteric sclerae ENMT: external ear and nose normal, oropharynx normal Respiratory: normal respiratory effort, lungs clear to auscultation Cardiovascular: Rate/Rhythm: regular rate and regular rhythm Vessels: normal peripheral pulses Extremities: + edema (+1-2 edema BLE) Gastrointestinal (Abdomen): normal bowel sounds, soft, nontender, no hepatosplenomegaly Musculoskeletal: no cyanosis or clubbing, extremities motor strength 5/5 Skin: no rashes, warm and dry Neurologic: PERRL, EOMI, accommodation nl, no face palsy, no dysarthria Psychiatric: A+Ox3, euthymic affect Insight: + limited insight (Forgetful) Results & Data Results & Data ([facility]) Vital Signs (Past 12 Hours) Vital Signs Temp Pulse Pulse Resp BP BP Pulse Ox 07/01/21 20:00 63 18 160/67 H 95 07/01/21 19:30 62 26 H 145/65 H 07/01/21 19:00 89 25 H 145/63 H 07/01/21 18:30 61 21 133/62 07/01/21 18:01 60 24 144/63 H 07/01/21 18:00 37.1 C 79 22 137/62 95 07/01/21 17:30 58 L 23 153/66 H 07/01/21 17:01 58 L 28 H 142/65 H 07/01/21 16:57 59 L 18 95 07/01/21 16:38 37 C 18 132/53 L 95 07/01/21 14:38 36.9 C 59 L 18 128/57 L 94 Laboratory Results Short CBC 07/01/21 07/01/21 Range/Units 14:29 14:29 WBC 5.06 (4.8-10.8) K/uL Hgb 10.5 L (14.0-18.0) g/dL Hct 36.0 L (42-52) % Plt Count 192 (130-400) K/uL Creatinine 1.45 H (0.6-1.4) mg/dl BMP 07/01/21 14:29 Sodium 141 Potassium 3.8 Chloride 109 H Carbon Dioxide 27 BUN 26 H Creatinine 1.45 H Glucose 116 H Calcium 8.9 Cardiac Enzymes 07/01/21 Range/Units 14:29 Troponin I < 0.015 (0-0.045) ng/ml Liver Function 07/01/21 Range/Units 14:29 Total Bilirubin 0.4 (0.2-1) mg/dl AST 15 (15-37) U/L ALT 22 (12-78) U/L Alkaline Phosphatase 125 H (45-117) U/L Albumin 3.6 (3.4-5.0) gm/dl Urine 07/01/21 Range/Units 16:20 Urine Color Yellow Urine Appearance Clear (Clear) Urine pH 5.0 (4.5-7.5) Ur Specific [place] 1.018 (1.000-1.030) Urine Protein Trace H (Negative) Urine Glucose (UA) Negative (Negative) Diagnostic Findings Chest X-Ray 07/01/21 14:59 XR chest 1V portable HISTORY: 76 years-old Male weakness acute weakness COMPARISON: Chest radiograph 06/17/2021 TECHNIQUE: Portable AP view of the chest FINDINGS: Cardiac silhouette is enlarged. Prior median sternotomy with findings suggestive of CABG. Unchanged mild right hemidiaphragmatic elevation. There is no pneumothorax, pleural effusion, airspace consolidation or overt pulmonary edema. Degenerative changes of the shoulders and spine. Healed chronic left-sided rib fractures. IMPRESSION: Cardiomegaly without acute process. ACT 112: Negative or not required by law. The above report was generated using voice recognition software. It may contain grammatical, syntax or spelling errors. Electronically signed by: David Stewart M.D. 07/01/2021 4:[address] 07/01/21 14:[address] DOSE: 537.48 mGy.cm HISTORY: fall, slurred speech TECHNIQUE: Multiaxial CT images of the head were performed without the use of intravenous contrast. Automated exposure control was utilized for this study. A dose lowering technique was utilized adhering to the principles of ALARA. Comparison: Head CT 12/09/2019. Findings: The paranasal sinuses are clear. Moderate bilateral mastoid effusions, unchanged. The calvarium and skull base are intact. Stable mild ventriculomegaly. This is nonspecific but could be due to central volume loss. Left frontal scalp hematoma is noted.. There is no mass, hematoma, midline shift, or acute infarct. Impression: Left frontal scalp hematoma. Otherwise, no acute intracranial abnormality. ACT 112: Negative or not required by law. Electronically signed by: José Miguel Rock M.D. 07/01/2021 3:57 PM Code Status & VTE Plan Code Status Patient is a full code as per my discussion with him and his family who is the bedside. VTE Prophylaxis Plan VTE Prophylaxis will be ordered: Yes Supervising Physician Co-Signing Physician Notes Pt was seen and examined. Agreed with Lata STERLING exam, assessment and plan. 76-year-old male with PMH DM type II, neuropathy, CAD s/p CABG, HTN, wandering atrial pacemaker, CKD stage III, BPH, Parkinson's, dementia, HUNTER presents to the ED after experiencing a fall at home. Patient recently admitted to [facility] 06/18-06/19 for acute on chronic iron deficiency anemia. Pt had iron transfusion yesterday. Pt has been feeling weak lately. He suffered 2 falls at home and struck his head. Denies any chest pain, palpitation, loss of consciousness, dizziness, shortness of breath. CT head done on admission showed left frontal scalp hematoma. Otherwise, no acute intracranial abnormality. No focal deficit on admission. Will get an MRI of the brain. PT/OT eval. Fall precaution. Continue monitor closely. MD Catherine
[2021-07-01] MEDS ORDERED: GADOBUTROL 65ML VIAL IV ONE (21:36)
[2021-07-01] MEDS ORDERED: ACETAMINOPHEN 325 MG TAB PO PRN (22:04)
[2021-07-01] MEDS ORDERED: GLUCOSE 10 TABS/TUBE PO PRN (22:04)
[2021-07-01] MEDS ORDERED: CARBOHYDRATES FOR HYPOGLYCEMIA PO PRN (22:04)
[2021-07-01] MEDS ORDERED: GLUCAGON FOR INJ 1 MG VIAL SQ PRN (22:04)
[2021-07-01] MEDS ORDERED: GLUCOSE 40% GEL 15 GM TUBE PO PRN (22:04)
[2021-07-01] MEDS ORDERED: DEXTROSE 50% 50 ML SYRINGE IV PRN (22:04)
[2021-07-01] MEDS: cephALEXin 500 MG CAP PO SCH (23:10)
[2021-07-01] MEDS: AMANTADINE HCL 100 MG CAPSULE PO SCH (23:11)
[2021-07-01] MEDS: FERROUS SULFATE 325 MG TAB PO SCH (23:11)
[2021-07-01] MEDS: INSULIN ASPART 100 UNITS/ML 3 ML PEN SC SCH (23:11)
[2021-07-01] MEDS: TAMSULOSIN HCL 0.4 MG CAP PO SCH (23:11)
[2021-07-01] MEDS: DONEPEZIL HCL 10 MG TAB PO SCH (23:11)
--- NOTE | 2021-07-02 07:39 | Magnetic Resonance Report ---
MR brain wo/w con INDICATION: [place] ^weakness, falls, hx Parkinson's TECHNIQUE: Multiplanar and multisequence MR images of the brain were obtained prior to and following administration of gadolinium contrast. Comparison: None available at the time of this dictation. FINDINGS: No abnormal restricted diffusion is identified. Foci of T2 and FLAIR hyperintensity are noted in the paraventricular areas consistent with chronic small vessel ischemic disease. There is no evidence of acute intraparenchymal hemorrhage. No extra axial fluid collections are seen. There are no masses, ma ss effect, or midline shift. There is ex vacuo ventriculomegaly and sulcal enlargement compatible wit h diffuse volume loss. The corpus callosum, pituitary gland, and cerebellar tonsils appear grossly un remarkable. Flow voids of the major intracranial arterial vessels are identified. The imaged portions of the para nasal sinuses, mastoid air cells, and orbits are unremarkable. IMPRESSION: Chronic volume loss and age related white matter changes without evidence of acute abnormality. ACT 112: Negative or not required by law. Electronically signed by: Jim Ivan M.D. 07/02/2021 7:37 AM
[2021-07-02 08:09] LABS: Hematocrit (blood only) 33.7 % (42-52); Hemoglobin 10.1 g/dL (14.0-18.0); Mean Corpuscular Hemoglobin 22.2 pg (25-34); Mean Corpuscular Volume 74.1 fL (80-100); Mean Platelet Volume 8.7 fL (7.4-10.4); Platelet Count 166 K/uL (130-400); RDW Coefficient of Variation 28.4 % (11.5-14.5); RDW Standard Deviation 74.1 fL (36.4-46.3); Red Blood Count 4.55 M/uL (4.7-6.1)
[2021-07-02 08:42] LABS: BUN Creatinine Ratio 14.6 (10-20); Calcium 8.7 mg/dl (8.5-10.1); Creatinine Clr Calc Pharmacy 41.4 ml/min; Est GFR (African American) 58.3 ml/min; Est GFR (Non-African American) 50.3 ml/min; Potassium 3.6 mmol/L (3.5-5.1)
[2021-07-02] MEDS: POTASSIUM CHLORIDE CRTAB 20 MEQ TABCR PO SCH (08:57)
[2021-07-02] MEDS: buPROPion XL 150 MG TABCR PO SCH (08:57)
[2021-07-02] MEDS: MAGNESIUM OXIDE 400 MG TAB PO SCH (08:57)
[2021-07-02] MEDS: ESCITALOPRAM OXALATE 20 MG TAB PO SCH (08:58)
[2021-07-02] MEDS: FUROSEMIDE 40 MG TAB PO SCH (08:58)
[2021-07-02] MEDS: METOPROLOL SUCC 25MG EXT REL TAB PO SCH (08:58)
[2021-07-02] MEDS: ATORVASTATIN 40 MG TAB PO SCH (08:58)
[2021-07-02] MEDS: PANTOprazole 40 MG TAB PO SCH (08:58)
[2021-07-02] MEDS: FERROUS SULFATE 325 MG TAB PO SCH ×2 (08:58→20:36)
[2021-07-02] MEDS: AMANTADINE HCL 100 MG CAPSULE PO SCH ×2 (08:58→20:36)
[2021-07-02] MEDS: ASPIRIN 81 MG ECTAB PO SCH (08:58)
[2021-07-02] MEDS: cephALEXin 500 MG CAP PO SCH ×2 (08:58→20:36)
[2021-07-02] MEDS: INSULIN ASPART 100 UNITS/ML 3 ML PEN SC SCH ×4 (09:02→20:35)
--- NOTE | 2021-07-02 15:16 | Electrocardiogram Report ---
Test Reason : Blood Pressure : / mmHG Vent. Rate : 059 BPM Atrial Rate : 059 BPM P-R Int : 216 ms QRS Dur : 098 ms QT Int : 416 ms P-R-T Axes : 000 -53 014 degrees QTc Int : 411 ms Sinus bradycardia with 1st degree A-V block Left axis deviation Incomplete right bundle branch block Inferior infarct , age undetermined Abnormal ECG When compared with ECG of 17-JUN-2021 21:23, Sinus rhythm has replaced Atrial fibrillation Confirmed by Jw Ward ([id number]) on 07/02/2021 3:15:59 PM Referred By: Confirmed By:Eduar Ward
--- NOTE | 2021-07-02 16:23 | Hospitalist Progress Note ---
Date of Service July 02, 2021 Assessment & Plan (1) Fall: (2) Ambulatory dysfunction: (3) Parkinsonism: Plan: Present on admission from home with fall resulted left frontal scalp hematoma Possible multifactorial due to ambulatory dysfunction vs orthostatic hypotension (from medication) vs Parkinsonism Head CT negative for acute intracranial findings Given patient's underlying Parkinson's, diabetic neuropathy, and anemia suspect that ambulatory dysfunction is multifactorial Positive orthostatic BP today Brain MRI showed no acute intracranial abnormality PT/OT recommended inpatient therapy Fall precaution (4) HUNTER (iron deficiency anemia): Plan: S/p Feraheme on 06/30 Hgb stable at 10.1 Continue Monitor CBC (5) DM type 2 (diabetes mellitus, type 2): Plan: Most recent Hgb A1c 6.7 on 05/2021 Continue to hold oral agents and utilize NovoLog per protocol while hospitalized (6) Atrial ectopy: Plan: Controlled with metoprolol (7) Recurrent cellulitis of lower extremity: Plan: Continue chronic suppression therapy with cephalexin (8) Lower extremity edema: (9) Diastolic dysfunction: Plan: -Lower extreme edema seems to be at baseline -Continue home regimen of Maxide and furosemide (10) DVT prophylaxis: Plan: -SCDs due to scalp hematoma Admission and Anticipated Discharge Date Admission Date: July 01, 2021 Subjective Pt was seen and and examined for follow up of pain Lying in bed with no acute distress Pt walked with therapy today and became weaker after standing for long period of time Spoke to daughter over the phone and provide with updates Denies any chest pain , palpitation, dizziness and SOB Review of Systems Review of Systems: All systems reviewed & are unremarkable except as noted in Subjective Physical Exam Physical Exam: General- No acute distress Head- hematoma in L frontal flavia Eyes- PERRL, EOMI, ENT- oropharynx clear Neck- supple, no JVD Lungs- clear to auscultation Heart- regular rhythm; no murmur Abdomen- normal bowel sounds, soft, nontender Extremities- no calf tenderness, +edema Neuro- alert, oriented x 3; PERRL, EOMI; no facial palsy; no dysarthria Skin- warm & dry Results & Data Results & Data ([facility]) Vital Signs (Past 12 Hours) Vital Signs Temp Pulse Pulse Resp BP Pulse Ox 07/02/21 16:00 36.8 C 75 20 101/69 95 07/02/21 07:40 36.7 C 82 16 130/72 97
[2021-07-02] MEDS: TAMSULOSIN HCL 0.4 MG CAP PO SCH (20:36)
[2021-07-02] MEDS: DONEPEZIL HCL 10 MG TAB PO SCH (20:36)
[2021-07-03] MEDS: MAGNESIUM OXIDE 400 MG TAB PO SCH (09:16)
[2021-07-03] MEDS: FERROUS SULFATE 325 MG TAB PO SCH ×2 (09:16→20:37)
[2021-07-03] MEDS: ATORVASTATIN 40 MG TAB PO SCH (09:16)
[2021-07-03] MEDS: cephALEXin 500 MG CAP PO SCH ×2 (09:16→20:35)
[2021-07-03] MEDS: AMANTADINE HCL 100 MG CAPSULE PO SCH ×2 (09:16→20:36)
[2021-07-03] MEDS: ASPIRIN 81 MG ECTAB PO SCH (09:16)
[2021-07-03] MEDS: buPROPion XL 150 MG TABCR PO SCH (09:16)
[2021-07-03] MEDS: ESCITALOPRAM OXALATE 20 MG TAB PO SCH (09:16)
[2021-07-03] MEDS: METOPROLOL SUCC 25MG EXT REL TAB PO SCH (09:16)
[2021-07-03] MEDS: TRIAMTERENE/HCTZ 37.5/25MG TAB PO SCH (09:17)
[2021-07-03] MEDS: PANTOprazole 40 MG TAB PO SCH (09:17)
[2021-07-03] MEDS: INSULIN ASPART 100 UNITS/ML 3 ML PEN SC SCH ×4 (09:28→20:59)
[2021-07-03] MEDS: DONEPEZIL HCL 10 MG TAB PO SCH (20:36)
[2021-07-03] MEDS: TAMSULOSIN HCL 0.4 MG CAP PO SCH (20:36)
--- NOTE | 2021-07-03 23:16 | Hospitalist Progress Note ---
Date of Service July 03, 2021 Assessment & Plan (1) Fall: (2) Ambulatory dysfunction: (3) Parkinsonism: Plan: Present on admission from home with fall resulted left frontal scalp hematoma Possible multifactorial due to ambulatory dysfunction vs orthostatic hypotension (from medication) vs Parkinsonism Head CT negative for acute intracranial findings Given patient's underlying Parkinson's, diabetic neuropathy, and anemia suspect that ambulatory dysfunction is multifactorial Positive orthostatic BP today Brain MRI showed no acute intracranial abnormality PT/OT recommended inpatient therapy Fall precaution Waiting for placement to rehab (4) HUNTER (iron deficiency anemia): Plan: S/p Feraheme on 06/30 Hgb stable at 10.1 Continue Monitor CBC (5) DM type 2 (diabetes mellitus, type 2): Plan: Most recent Hgb A1c 6.7 on 05/2021 Continue to hold oral agents and utilize NovoLog per protocol while hospitalized (6) Atrial ectopy: Plan: Controlled with metoprolol (7) Recurrent cellulitis of lower extremity: Plan: Continue chronic suppression therapy with cephalexin (8) Lower extremity edema: (9) Diastolic dysfunction: Plan: -Lower extreme edema seems to be at baseline -Continue home regimen of Maxide and furosemide (10) DVT prophylaxis: Plan: -SCDs due to scalp hematoma Admission and Anticipated Discharge Date Admission Date: July 02, 2021 Subjective Pt was seen and and examined for follow up of fall and weakness Sitting in bed with no acute distress watching TV He said that he is doing OK, but his legs get tired quickly Denies any chest pain , palpitation, dizziness and SOB Review of Systems Review of Systems: All systems reviewed & are unremarkable except as noted in Subjective Physical Exam Physical Exam: General- No acute distress Head- hematoma in L frontal flavia Eyes- PERRL, EOMI, ENT- oropharynx clear Neck- supple, no JVD Lungs- clear to auscultation Heart- regular rhythm; no murmur Abdomen- normal bowel sounds, soft, nontender Extremities- no calf tenderness, +edema Neuro- alert, oriented x 3; PERRL, EOMI; no facial palsy; no dysarthria Skin- warm & dry Results & Data Results & Data ([facility]) Vital Signs (Past 12 Hours) Vital Signs Temp Pulse Resp BP Pulse Ox 07/03/21 16:00 36.6 C 56 L 18 111/63 100
[2021-07-04] MEDS: MAGNESIUM OXIDE 400 MG TAB PO SCH (08:57)
[2021-07-04] MEDS: ESCITALOPRAM OXALATE 20 MG TAB PO SCH (08:57)
[2021-07-04] MEDS: ATORVASTATIN 40 MG TAB PO SCH (08:57)
[2021-07-04] MEDS: buPROPion XL 150 MG TABCR PO SCH (08:57)
[2021-07-04] MEDS: PANTOprazole 40 MG TAB PO SCH (08:57)
[2021-07-04] MEDS: cephALEXin 500 MG CAP PO SCH ×2 (08:57→21:31)
[2021-07-04] MEDS: FERROUS SULFATE 325 MG TAB PO SCH ×2 (08:57→21:31)
[2021-07-04] MEDS: TRIAMTERENE/HCTZ 37.5/25MG TAB PO SCH (08:57)
[2021-07-04] MEDS: ASPIRIN 81 MG ECTAB PO SCH (08:57)
[2021-07-04] MEDS: AMANTADINE HCL 100 MG CAPSULE PO SCH ×2 (08:57→21:31)
[2021-07-04] MEDS: METOPROLOL SUCC 25MG EXT REL TAB PO SCH (08:58)
[2021-07-04] MEDS: INSULIN ASPART 100 UNITS/ML 3 ML PEN SC SCH ×4 (09:03→20:36)
[2021-07-04] MEDS: DONEPEZIL HCL 10 MG TAB PO SCH (21:31)
[2021-07-04] MEDS: TAMSULOSIN HCL 0.4 MG CAP PO SCH (21:31)
--- NOTE | 2021-07-04 23:05 | Hospitalist Progress Note ---
Date of Service July 04, 2021 Assessment & Plan (1) Fall: (2) Ambulatory dysfunction: (3) Parkinsonism: Plan: Present on admission from home with fall resulted left frontal scalp hematoma Possible multifactorial due to ambulatory dysfunction vs orthostatic hypotension (from medication) vs Parkinsonism Head CT negative for acute intracranial findings Given patient's underlying Parkinson's, diabetic neuropathy, and anemia suspect that ambulatory dysfunction is multifactorial Positive orthostatic BP today Brain MRI showed no acute intracranial abnormality PT/OT recommended inpatient therapy Fall precaution Waiting for placement to rehab (4) HUNTER (iron deficiency anemia): Plan: S/p Feraheme on 06/30 Hgb stable at 10.1 Continue Monitor CBC (5) DM type 2 (diabetes mellitus, type 2): Plan: Most recent Hgb A1c 6.7 on 05/2021 Continue to hold oral agents and utilize NovoLog per protocol while hospitalized (6) Atrial ectopy: Plan: Controlled with metoprolol (7) Recurrent cellulitis of lower extremity: Plan: Continue chronic suppression therapy with cephalexin (8) Lower extremity edema: (9) Diastolic dysfunction: Plan: -Lower extreme edema seems to be at baseline -Continue home regimen of Maxide and furosemide (10) DVT prophylaxis: Plan: -SCDs due to scalp hematoma Admission and Anticipated Discharge Date Admission Date: July 02, 2021 Subjective Pt was seen and and examined for follow up of fall and weakness Sitting in bed with no acute distress watching TV Patient said that he feels fine Denies any chest pain , palpitation, dizziness and SOB Physical Exam Physical Exam: General- No acute distress Head- hematoma in L frontal flavia Eyes- PERRL, EOMI, ENT- oropharynx clear Neck- supple, no JVD Lungs- clear to auscultation Heart- regular rhythm; no murmur Abdomen- normal bowel sounds, soft, nontender Extremities- no calf tenderness, +edema Neuro- alert, oriented x 3; PERRL, EOMI; no facial palsy; no dysarthria Skin- warm & dry Results & Data Results & Data ([facility]) Vital Signs (Past 12 Hours) Vital Signs Temp Pulse Resp BP BP Pulse Ox 07/04/21 22:05 36.6 C 55 L 18 152/66 H 95 07/04/21 15:51 36.6 C 55 L 15 125/55 L 95
[2021-07-05] MEDS: PANTOprazole 40 MG TAB PO SCH (09:05)
[2021-07-05] MEDS: ATORVASTATIN 40 MG TAB PO SCH (09:06)
[2021-07-05] MEDS: FUROSEMIDE 40 MG TAB PO SCH (09:06)
[2021-07-05] MEDS: ASPIRIN 81 MG ECTAB PO SCH (09:06)
[2021-07-05] MEDS: MAGNESIUM OXIDE 400 MG TAB PO SCH (09:07)
[2021-07-05] MEDS: AMANTADINE HCL 100 MG CAPSULE PO SCH ×2 (09:07→21:44)
[2021-07-05] MEDS: METOPROLOL SUCC 25MG EXT REL TAB PO SCH (09:07)
[2021-07-05] MEDS: POTASSIUM CHLORIDE CRTAB 20 MEQ TABCR PO SCH (09:07)
[2021-07-05] MEDS: cephALEXin 500 MG CAP PO SCH ×2 (09:08→21:02)
[2021-07-05] MEDS: buPROPion XL 150 MG TABCR PO SCH (09:08)
[2021-07-05] MEDS: ESCITALOPRAM OXALATE 20 MG TAB PO SCH (09:08)
[2021-07-05] MEDS: FERROUS SULFATE 325 MG TAB PO SCH ×2 (09:08→21:02)
[2021-07-05] MEDS: INSULIN ASPART 100 UNITS/ML 3 ML PEN SC SCH ×4 (09:10→21:04)
[2021-07-05] MEDS: DONEPEZIL HCL 10 MG TAB PO SCH (21:02)
[2021-07-05] MEDS: TAMSULOSIN HCL 0.4 MG CAP PO SCH (21:03)
--- NOTE | 2021-07-05 23:25 | Hospitalist Progress Note ---
Date of Service July 05, 2021 Assessment & Plan (1) Fall: (2) Ambulatory dysfunction: (3) Parkinsonism: Plan: Present on admission from home with fall resulted left frontal scalp hematoma Possible multifactorial due to ambulatory dysfunction vs orthostatic hypotension (from medication) vs Parkinsonism Head CT negative for acute intracranial findings Given patient's underlying Parkinson's, diabetic neuropathy, and anemia suspect that ambulatory dysfunction is multifactorial Positive orthostatic BP today Brain MRI showed no acute intracranial abnormality PT/OT recommended inpatient therapy Fall precaution Waiting for placement to rehab (4) HUNTER (iron deficiency anemia): Plan: S/p Feraheme on 06/30 Hgb stable at 10.1 Continue Monitor CBC (5) DM type 2 (diabetes mellitus, type 2): Plan: Most recent Hgb A1c 6.7 on 05/2021 Continue to hold oral agents and utilize NovoLog per protocol while hospitalized (6) Atrial ectopy: Plan: Controlled with metoprolol (7) Recurrent cellulitis of lower extremity: Plan: Continue chronic suppression therapy with cephalexin (8) Lower extremity edema: (9) Diastolic dysfunction: Plan: -Lower extreme edema seems to be at baseline -Continue home regimen of Maxide and furosemide (10) DVT prophylaxis: Plan: -SCDs due to scalp hematoma Admission and Anticipated Discharge Date Admission Date: July 02, 2021 Subjective Pt was seen and and examined for follow up of fall and weakness Sitting in bed with no acute distress watching TV Patient said that he feels fine Spoke to today provided with updates and answered all her questions Denies any chest pain , palpitation, dizziness and SOB Review of Systems Review of Systems: All systems reviewed & are unremarkable except as noted in Subjective Physical Exam Physical Exam: General- No acute distress Head- hematoma in L frontal flavia Eyes- PERRL, EOMI, ENT- oropharynx clear Neck- supple, no JVD Lungs- clear to auscultation Heart- regular rhythm; no murmur Abdomen- normal bowel sounds, soft, nontender Extremities- no calf tenderness, +edema Neuro- alert, oriented x 3; PERRL, EOMI; no facial palsy; no dysarthria Skin- warm & dry Results & Data Results & Data ([facility]) Vital Signs (Past 12 Hours) Vital Signs Temp Pulse Resp BP Pulse Ox 07/05/21 22:00 36.5 C 17 97 07/05/21 16:08 36.4 C L 69 16 121/68 99
[2021-07-06] MEDS: buPROPion XL 150 MG TABCR PO SCH (07:53)
[2021-07-06] MEDS: MAGNESIUM OXIDE 400 MG TAB PO SCH (07:53)
[2021-07-06] MEDS: TRIAMTERENE/HCTZ 37.5/25MG TAB PO SCH (07:53)
[2021-07-06] MEDS: FERROUS SULFATE 325 MG TAB PO SCH ×2 (07:53→20:50)
[2021-07-06] MEDS: ESCITALOPRAM OXALATE 20 MG TAB PO SCH (07:54)
[2021-07-06] MEDS: PANTOprazole 40 MG TAB PO SCH (07:54)
[2021-07-06] MEDS: AMANTADINE HCL 100 MG CAPSULE PO SCH ×2 (07:54→20:48)
[2021-07-06] MEDS: ATORVASTATIN 40 MG TAB PO SCH (07:54)
[2021-07-06] MEDS: cephALEXin 500 MG CAP PO SCH ×2 (07:54→20:49)
[2021-07-06] MEDS: ASPIRIN 81 MG ECTAB PO SCH (07:54)
[2021-07-06] MEDS: METOPROLOL SUCC 25MG EXT REL TAB PO SCH (07:54)
[2021-07-06] MEDS: INSULIN ASPART 100 UNITS/ML 3 ML PEN SC SCH ×4 (09:04→20:51)
--- NOTE | 2021-07-06 19:15 | Hospitalist Progress Note ---
Date of Service July 06, 2021 Assessment & Plan (1) Fall: (2) Ambulatory dysfunction: (3) Parkinsonism: Plan: Present on admission from home with fall resulted left frontal scalp hematoma Possible multifactorial due to ambulatory dysfunction vs orthostatic hypotension (from medication) vs Parkinsonism Head CT negative for acute intracranial findings Given patient's underlying Parkinson's, diabetic neuropathy, and anemia suspect that ambulatory dysfunction is multifactorial Positive orthostatic BP today Brain MRI showed no acute intracranial abnormality PT/OT recommended inpatient therapy Fall precaution Pt was denies placement to [facility] Referral placed for [facility] Waiting for placement to rehab (4) HUNTER (iron deficiency anemia): S/p Feraheme on 06/30 Spoke to radiology and no problem with the Feraheme for the MRI Hgb stable at 10.1 Continue Monitor CBC (5) DM type 2 (diabetes mellitus, type 2) Most recent Hgb A1c 6.7 on 05/2021 Continue to hold oral agents and utilize NovoLog per protocol while hospitalized (6) Atrial ectopy: Controlled with metoprolol (7) Recurrent cellulitis of lower extremity: Continue chronic suppression therapy with cephalexin (8) Lower extremity edema: (9) Diastolic dysfunction: -Lower extreme edema seems to be at baseline -Continue home regimen of Maxide and furosemide (10) DVT prophylaxis: -SCDs due to scalp hematoma (11) Code status Full code Admission and Anticipated Discharge Date Admission Date: July 02, 2021 Subjective Pt was seen and and examined for follow up of fall and weakness Sitting in bed with no acute distress watching TV Patient said that he feels fine He was denies by [facility] for rehab Case management placed referral for [facility] as per next option Pt said that wants him to go to [facility] but he is thinking about it Denies any chest pain , palpitation, dizziness and SOB Review of Systems Review of Systems: All systems reviewed & are unremarkable except as noted in Subjective Physical Exam Physical Exam: General- No acute distress Head- hematoma in L frontal flavia Eyes- PERRL, EOMI, ENT- oropharynx clear Neck- supple, no JVD Lungs- clear to auscultation Heart- regular rhythm; no murmur Abdomen- normal bowel sounds, soft, nontender Extremities- no calf tenderness, +edema Neuro- alert, oriented x 3; PERRL, EOMI; no facial palsy; no dysarthria Skin- warm & dry Results & Data Results & Data ([facility]) Vital Signs (Past 12 Hours) Vital Signs Temp Pulse Pulse Resp BP Pulse Ox 07/06/21 15:43 36.6 C 80 18 147/66 H 100 07/06/21 07:44 36.8 C 72 20 144/69 H 96
[2021-07-06] MEDS: DONEPEZIL HCL 10 MG TAB PO SCH (20:49)
[2021-07-06] MEDS: TAMSULOSIN HCL 0.4 MG CAP PO SCH (20:50)
--- NOTE | 2021-07-07 08:26 | Hospitalist Progress Note ---
Date of Service July 07, 2021 Assessment & Plan (1) Fall: (2) Ambulatory dysfunction: (3) Parkinsonism: Plan: Present on admission from home with fall resulted left frontal scalp hematoma Possible multifactorial due to ambulatory dysfunction vs orthostatic hypotension (from medication) vs Neurogenic orthostatic hypotension likely d/t Parkinson's Disease Head CT negative for acute intracranial findings Given patient's underlying Parkinson's, diabetic neuropathy, and anemia suspect that ambulatory dysfunction is multifactorial Positive orthostatic BP today Brain MRI showed no acute intracranial abnormality PT/OT recommended inpatient therapy Fall precaution Pt was denies placement to [facility] Referral placed for [facility] Plan to go to [facility] for rehab (4) HUNTER (iron deficiency anemia): S/p Feraheme on 06/30 Spoke to radiology and no problem with the Feraheme for the MRI Hgb stable at 10.1 Continue Monitor CBC (5) DM type 2 (diabetes mellitus, type 2) Most recent Hgb A1c 6.7 on 05/2021 Continue to hold oral agents and utilize NovoLog per protocol while hospitalized (6) Atrial ectopy: Controlled with metoprolol (7) Recurrent cellulitis of lower extremity: Continue chronic suppression therapy with cephalexin (8) Lower extremity edema: (9) Diastolic dysfunction: -Lower extreme edema seems to be at baseline -Continue home regimen of Maxide and furosemide (10) DVT prophylaxis: -SCDs due to scalp hematoma (11) Code status Full code (12) Disposition Discharge to [facility] today Admission and Anticipated Discharge Date Admission Date: July 02, 2021 Subjective Pt was seen and and examined for follow up of fall and weakness Sitting in bed with no acute distress watching TV Patient said that he feels fine He was denies by [facility] for rehab Case management placed referral for [facility] as per next option Pt said that wants him to go to [facility] but he is thinking about it Denies any chest pain , palpitation, dizziness and SOB Review of Systems Review of Systems: All systems reviewed & are unremarkable except as noted in Subjective Physical Exam Physical Exam: General- No acute distress Head- hematoma in L frontal flavia Eyes- PERRL, EOMI, ENT- oropharynx clear Neck- supple, no JVD Lungs- clear to auscultation Heart- regular rhythm; no murmur Abdomen- normal bowel sounds, soft, nontender Extremities- no calf tenderness, +edema Neuro- alert, oriented x 3; PERRL, EOMI; no facial palsy; no dysarthria Skin- warm & dry Results & Data Results & Data ([facility]) Vital Signs (Past 12 Hours) Vital Signs Temp Pulse Resp BP BP Pulse Ox 07/07/21 08:00 36.5 C 76 16 124/72 98 07/06/21 23:28 36.8 C 62 16 136/69 99
[2021-07-07] MEDS: TRIAMTERENE/HCTZ 37.5/25MG TAB PO SCH (09:30)
[2021-07-07] MEDS: cephALEXin 500 MG CAP PO SCH (09:30)
[2021-07-07] MEDS: ATORVASTATIN 40 MG TAB PO SCH (09:30)
[2021-07-07] MEDS: INSULIN ASPART 100 UNITS/ML 3 ML PEN SC SCH (09:30)
[2021-07-07] MEDS: ESCITALOPRAM OXALATE 20 MG TAB PO SCH (09:30)
[2021-07-07] MEDS: AMANTADINE HCL 100 MG CAPSULE PO SCH (09:30)
[2021-07-07] MEDS: buPROPion XL 150 MG TABCR PO SCH (09:30)
[2021-07-07] MEDS: FERROUS SULFATE 325 MG TAB PO SCH (09:30)
[2021-07-07] MEDS: PANTOprazole 40 MG TAB PO SCH (09:30)
[2021-07-07] MEDS: ASPIRIN 81 MG ECTAB PO SCH (09:30)
[2021-07-07] MEDS: METOPROLOL SUCC 25MG EXT REL TAB PO SCH (09:30)
[2021-07-07] MEDS: MAGNESIUM OXIDE 400 MG TAB PO SCH (09:30)
--- NOTE | 2021-07-07 10:27 | Discharge Summary ---
Date of Service July 07, 2021 Admission HPI Per Admitting Provider 76-year-old male with PMH DM type II, neuropathy, CAD s/p CABG, HTN, wandering atrial pacemaker, CKD stage III, BPH, Parkinson's, dementia, HUNTER, and other problems to below who presents to the ED after experiencing a fall at home. Patient recently admitted to [facility] 06/18-06/19 for acute on chronic iron deficiency anemia. Patient received PRB transfusion at that time. Patient follows with Dr. Rueda and per the daughter received in iron and blood transfusion in the office yesterday. Over the past couple of days, patient has had increased difficulty ambulating. Today, he suffered 2 falls at home and struck his head. Patient denies associated lightheadedness and dizziness. No loss of consciousness. Denies unilateral weakness, numbness, tingling. No difficulty speaking or understanding, facial droop. Otherwise has been feeling okay. Has chronic lower extremity edema which is unchanged baseline. Denies any other recent illnesses, fevers, chills. No chest pain or shortness of breath. Denies abdominal pain, nausea, vomiting, diarrhea. No urinary symptoms. In the ED, patient is found to have a left forehead hematoma. Labs are unremarkable/at patient's baseline. Patient is hemodynamically stable. He was given IVF. Admission Exam Per Admitting Provider Constitutional: WD/WN, vitals as above Eyes: PERRL, conjunctivae normal, anicteric sclerae ENMT: external ear and nose normal, oropharynx normal Respiratory: normal respiratory effort, lungs clear to auscultation Cardiovascular: regular rate and regular rhythm Vessels: normal peripheral pulses Extremities: + edema (+1-2 edema BLE) Gastrointestinal: normal bowel sounds, soft, nontender, no hepatosplenomegaly Musculoskeletal: no cyanosis or clubbing, extremities motor strength 5/5 Skin: no rashes, warm and dry Neurologic: PERRL, EOMI, accommodation nl, no face palsy, no dysarthria Psychiatric: A+Ox3, euthymic affect Insight: + limited insight (Forgetful) Principal Diagnosis (1) Fall: (2) Ambulatory dysfunction: (3) Parkinsonism: (4) HUNTER (iron deficiency anemia): (5) DM type 2 (diabetes mellitus, type 2) (6) Atrial ectopy: (7) Recurrent cellulitis of lower extremity: (8) Lower extremity edema: Discharge Exam General- No acute distress Head- hematoma in L frontal flavia Eyes- PERRL, EOMI, ENT- oropharynx clear Neck- supple, no JVD Lungs- clear to auscultation Heart- regular rhythm; no murmur Abdomen- normal bowel sounds, soft, nontender Extremities- no calf tenderness, +edema Neuro- alert, oriented x 3; PERRL, EOMI; no facial palsy; no dysarthria Skin- warm & dry Discharge Data Allergies Allergy/AdvReac Type Severity Reaction Status Date / Time YONATAN Inhibitors AdvReac Mild Cough Verified 07/01/21 15:25 Consultations 07/01/21 19:45 ED Decision to Admit Stat Ordered Studies 07/01/21 14:59 CT head/brain wo con Stat 07/01/21 19:39 MR brain wo/w con Routine Hospital Course (1) Fall: (2) Ambulatory dysfunction: (3) Parkinsonism: Present on admission from home with fall resulted left frontal scalp hematoma Possible multifactorial due to ambulatory dysfunction vs orthostatic hypotension (from medication) vs Neurogenic orthostatic hypotension likely d/t Parkinson's Disease Head CT negative for acute intracranial findings Given patient's underlying Parkinson's, diabetic neuropathy, and anemia suspect that ambulatory dysfunction is multifactorial Positive orthostatic BP today Brain MRI showed no acute intracranial abnormality PT/OT recommended inpatient therapy Fall precaution Pt was denies placement to [facility] Referral placed for [facility] Plan to go to [facility] for rehab (4) HUNTER (iron deficiency anemia): S/p Feraheme on 06/30 Spoke to radiology and no problem with the Feraheme for the MRI Hgb stable at 10.1 Continue Monitor CBC (5) DM type 2 (diabetes mellitus, type 2) Most recent Hgb A1c 6.7 on 05/2021 Continue to hold oral agents and utilize NovoLog per protocol while hospitalized (6) Atrial ectopy: Controlled with metoprolol (7) Recurrent cellulitis of lower extremity: Continue chronic suppression therapy with cephalexin (8) Lower extremity edema: (9) Diastolic dysfunction: -Lower extreme edema seems to be at baseline -Continue home regimen of Maxide and furosemide (10) DVT prophylaxis: -SCDs due to scalp hematoma (11) Code status Full code (12) Disposition Discharge to [facility] today Total Time Total Time Spent Total Time Spent (In Minutes): 35 minutes Discharge Plan Discharge Items Patient Disposition: Transfer Custodial Fac Reason For Visit: FALL, WEAKNESS Discharge Diagnosis: (1) Fall: (2) Ambulatory dysfunction: (3) Parkinsonism: (4) HUNTER (iron deficiency anemia): (5) DM type 2 (diabetes mellitus, type 2) (6) Atrial ectopy: (7) Recurrent cellulitis of lower extremity: (8) Lower extremity edema: Activity: Resume your previous activity Non-emergency contact: Primary Care Provider Call non-emergency contact if: you have any medication questions and your temperature is above 101 Follow-up/Referrals: Michael Hinton MD [Primary Care Provider] - Diet: Carb Consistent or DM2 and Heart Healthy Addtl Attending Provider Instructions: Follow with your primary care provider once discharge from [facility] Continue physical and occupational therapy Fall precaution Check CBC in 1 week to monitor your hemoglobin Continue monitor your blood sugar Pending Studies at Discharge: No Stand-Alone Forms: My [facility] Skilled Items Patient informed of condition?: Yes DNR: No Discharge Level of Care: Skilled Communicable Disease: No Discharge Prognosis: Stable Lines: None Urinary Catheter: No Medications and DC Order Prescriptions: New bacitracin 500 unit/gram ointment 1 applic topical BID 5 Days Qty: 14 RF: 0 Continued escitalopram oxalate 20 mg tablet 20 mg PO QAM Qty: 90 RF: 3 amantadine HCl 100 mg capsule 100 mg PO BID RF: 0 donepezil 10 mg tablet 10 mg PO HS RF: 0 triamterene-hydrochlorothiazid 37.5-25 mg tablet 1 tab PO 5XWK RF: 0 melatonin 10 mg tablet 10 mg PO HS PRN (Reason: Sleep) RF: 0 magnesium oxide 400 mg magnesium capsule 400 mg PO QAM RF: 0 furosemide 40 mg tablet 40 mg PO 2XWK Qty: 30 RF: 3 potassium chloride 20 mEq tablet extended release 20 meq PO 2XWK Qty: 30 RF: 3 atorvastatin 40 mg Tablet 40 mg PO QAM RF: 0 tamsulosin 0.4 mg capsule 0.4 mg PO HS Qty: 90 RF: 0 pantoprazole 40 mg tablet,delayed release (DR/EC) 40 mg PO QAM RF: 0 aspirin [Aspirin Low Dose] 81 mg Tablet,Delayed Release (Dr/Ec) 81 mg PO QAM RF: 0 metformin 500 mg tablet extended release 24 hr 500 mg PO QAM RF: 0 bupropion HCl 150 mg tablet extended release 24 hr 150 mg PO DAILY RF: 0 fluocinonide 0.05 % solution 1 applic TOPICAL DAILY PRN (Reason: after bathing) RF: 0 metoprolol succinate 25 mg tablet extended release 24 hr 25 mg PO QAM RF: 0 cephalexin 500 mg capsule 500 mg PO BID RF: 0 ferrous sulfate 325 mg (65 mg iron) tablet 325 mg PO BID Qty: 60 RF: 1 Discharge Orders: Discharge Order (Routine); Ordered 07/07/21 Ordered By: Lucy Alexander Admission Data Admit Date/Time: 07/02/21 21:24 Attending Provider: Lucy Alexander Admit Provider: Lucy Alexander Primary Care Provider: Michael Hinton Other Providers: Lucy Alexander ; [facility] ; Anatoliy Mendze [facility] ; [place],[facility]
== END 2021-07-07 13:15 | DRG 57 ==
LOC: ED 14:05 → 3W 14:05
DX: N18.30 Chronic kidney disease, stage 3 unspecified; S00.03XA Contusion of scalp, initial encounter; I25.10 Atherosclerotic heart disease of native coronary artery without angina pectoris; E11.51 Type 2 diabetes mellitus with diabetic peripheral angiopathy without gangrene; N40.0 Benign prostatic hyperplasia without lower urinary tract symptoms; R29.6 Repeated falls; Z79.82 Long term (current) use of aspirin; Z79.899 Other long term (current) drug therapy; F03.90 Unspecified dementia, unspecified severity, without behavioral disturbance, psychotic disturbance, mood disturbance, and anxiety; Z79.84 Long term (current) use of oral hypoglycemic drugs; E11.22 Type 2 diabetes mellitus with diabetic chronic kidney disease; L03.116 Cellulitis of left lower limb; Z95.0 Presence of cardiac pacemaker; G90.3 Multi-system degeneration of the autonomic nervous system; I12.9 Hypertensive chronic kidney disease with stage 1 through stage 4 chronic kidney disease, or unspecified chronic kidney disease; D50.9 Iron deficiency anemia, unspecified; L03.115 Cellulitis of right lower limb; R60.0 Localized edema; G20 Parkinson's disease; Z95.1 Presence of aortocoronary bypass graft; E11.40 Type 2 diabetes mellitus with diabetic neuropathy, unspecified; I34.0 Nonrheumatic mitral (valve) insufficiency; R26.89 Other abnormalities of gait and mobility; I51.89 Other ill-defined heart diseases; I49.1 Atrial premature depolarization; T50.905A Adverse effect of unspecified drugs, medicaments and biological substances, initial encounter; W19.XXXA Unspecified fall, initial encounter; M19.90 Unspecified osteoarthritis, unspecified site; F41.9 Anxiety disorder, unspecified; Z79.2 Long term (current) use of antibiotics; Z88.8 Allergy status to other drugs, medicaments and biological substances

== ENCOUNTER 2022-04-30 12:47 | Inpatient (IN) ==
[2022-04-30] MEDS ORDERED: ONDANSETRON INJ 2 MG/ML 2 ML VIAL IV STA (13:07)
[2022-04-30] MEDS ORDERED: SODIUM CHLORIDE 0.9% 250 ML IV PRN (13:07)
[2022-04-30 13:14] LABS: Basophils # (auto) 0.01 K/uL (0-0.2); Basophils % (auto) 0.1 %; Eosinophils # (auto) 0.01 K/uL (0-0.50); Eosinophils % (auto) 0.1 %; Hematocrit (blood only) 33.4 % (40.1-51.0); Hemoglobin 10.9 g/dl (14.0-18.0); Immature Granulocytes # (auto) 0.03 K/uL (0.00-0.02); Immature Granulocytes % (auto) 0.4 %; Lymphocytes # (auto) 0.38 K/uL (1.2-3.4); Lymphocytes % (auto) 4.6 %; Mean Corpuscular Hemoglobin 32.7 pg (25.0-34.0); Mean Corpuscular Hgb Conc 32.6 g/dL (32.0-36.0); Mean Corpuscular Volume 100.3 fL (80.0-100.0); Mean Platelet Volume 9.1 fL (9.4-12.4); Monocytes # (auto) 0.45 K/uL (0.24-0.82); Monocytes % (auto) 5.4 %; Neutrophils # (auto) 7.42 K/uL (1.4-6.5); Neutrophils % (auto) 89.4 %; Platelet Count 134 K/uL (130-400); RDW Coefficient of Variation 13.5 % (11.5-14.5); RDW Standard Deviation 49.7 fL (36.4-46.3); Red Blood Count 3.33 M/uL (4.63-6.08)
[2022-04-30 13:24] LABS: Prothrombin Time 11.1 Seconds (9.0-12.0)
--- NOTE | 2022-04-30 13:25 | Emergency Department Note ---
Impression & Plan CHF (congestive heart failure), Hypomagnesemia, COPD (chronic obstructive pulmonary disease) ED Provider Note Name: CHE BURCH Age: 77 Sex: M Arrives Via: Ambulance Informant: Patient, ED Provider: Gil Liu MD Chief Complaint: Shortness of breath Impression: As per impressions above Medical Decision Makin yr old female with history COPD, CHF, diabetes, hypertension, dyslipidemia, dementia/Parkinson's, arrives for evaluation of shortness of breath. Acutely worse this morning that may have been going on for the last week per . He has significant findings of CHF however lung exam with the need to think there is a component of COPD as well. He is somewhat hypoxic on room air that improved on nasal cannula. He was put on DuoNeb, steroids, magnesium and his breathing did improve though still requiring nasal cannula O2. Chest x-ray without clear infiltrate, labs otherwise look okay. Given hypoxia will need hospitalization for further management of his disease process. Symptoms are not consistent with PE, dissection, ACS. Patient and agreeable to plan. Prior Medical Record and Triage/Nursing Notes reviewed by Me Additional history obtained from chart Differentials:Reactive airway disease, pneumonia, pneumothorax, COPD, CHF, infections, cardiac ischemia, pulmonary embolism, musculoskeletal, gastrointestinal, as well as other pathologies. Vital Signs: reviewed and remarkable for hypoxia on RA Interventions: duoneb, solumedrol, magnesium iv, zofran iv Labs:Reviewed and remarkable for no significant abnormalities Imaging:cxr poor inspiratory effort, congestive findings EKG:Per My Interpretation: Indication Shortness of breath: Sinus tach 105 bpm with 1st av block, qtc [address] depression. No Ectopy. No Ischemia. Compared to EKG 07/01/21, no significant changes. Cardiac/Tele Monitoring: Cardiac Monitoring: An Order was placed for continuous cardiac monitoring. The monitor shows a rate of 90 with a sinus tach rhythm. Consults:Dr Aryan Pagan [email or web address] Plan: Disposition:Hospitalization. Condition: Good History of Present Illness:69-year-old gentleman arrives for evaluation of tran rtness of breath and awoke this morning worsening shortness of breath. Over the last few days been having increasing fluid in his legs and shortness of breath with exertion. He notes so short of breath this morning he felt nauseous and was dry heaving. Per EMS he was hypoxic and placed on nasal cannula O2 with improvement. Patient states he feels a bit better now that he is sitting up and on oxygen. He denies any chest pain, syncope, headache, neck pain, abdominal pain, back pain, urinary/bowel symptoms, calf pain, rashes or any other signs or symptoms. He has had no recent fevers, chills, infectious etiology other than the shortness of breath. Patient does note that on Lasix for fluid overload and recently increased it after talk to his [employer]. Patient is not on any blood thinners. He does note that they are unsure why he is anemic and he was supposed to have a blood transfusion last week. He has been treated with transfusions for the last 3 years with colonoscopies. No recent falls, trauma, injuries. No medications prior to arrival. Any exertion makes worse better. ROS: See above HPI for pertinent positives & negatives. A total of 10 systems reviewed and were otherwise negative. Past Medical History:See Below Past Surgical History:See Below Family History:See Below Social History:See Below Home Medications:See Below Allergies:yonatan inhibitor Vitals:Blood Pressure: 156/87, Pulse 106, RR 33, T 37.5C, O2 91% on RA Physical Exam: GENERAL: Patient is unwell appearing and in tired distress. Dry heaving EYES: No scleral icterus, unremarkable pupils. ENT: Mucous membranes moist, no nasal congestion. NECK: No masses appreciated, nomeningismus, trachea is midline. RESPIRATORY: Diffusely tight lung sounds with diffuse crackles and some expiratory wheezing, tachypnea/dyspnea CARDIOVASCULAR: Tachycardia.No murmurs, rubs, gallops appreciated. GASTROINTESTINAL: Abdomen soft, non-tender, no peritonitis.Bowel sounds positive.No masses appreciated. BACK: No midline tenderness, no CVA tenderness EXTREMITIES: 3+ pitting edema bilateral lower legs extending to knees. Full remedies with pulses intact NEUROLOGIC: Alert and oriented, no acute motor or sensory deficits, no focal weakness, cranial nerves grossly intact. SKIN: No rash, no jaundice, no diaphoresis. PSYCH: Appropriate GCS: 15 ED Course: Times/Reassessments: improved comfort with improved work of breathing Gil Liu MD 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 Diabetes type 2, controlled Diabetic ulcer of right heel associated with diabetes mellitus due to underlying condition, with fat layer exposed Dyslipidemia Fall GERD (gastroesophageal reflux disease) HTN (hypertension) HTN (hypertension) Lumbar spondylosis Moderate mitral regurgitation Orthostatic hypotension (07/2019) Peripheral arterial disease Primary parkinsonism Seasonal allergies Sensorineural hearing loss (SNHL) of both ears Sepsis due to group B Streptococcus (2018) 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 Father Hypertension, Onset Age: 40 at 40 Mother Hypertension COPD (chronic obstructive pulmonary disease) Diabetes Brother Allergies Asthma Denies family history of Prostate cancer Hearing loss No family history of adverse response to anesthesia No family history of bleeding disorder Heart disease Cancer Stroke Social History Smoking Status: Never smoker Hx Alcohol Use: No Hx Substance Use: No Preferred Language: Khmer Communication Ability: Effective Communication Ability Comment: Hard of hearing Weight Reduction Specialist Required: No Beliefs That Will Affect Care: None marital status: Current Living Situation: Spouse Current Living Situation Comment: Other Information That Helps Us Care for You: No Feels Safe at Home: Yes Assistive Devices: Hearing Aid - Bilateral and Walker Allergies Allergies Allergy/AdvReac Type Severity Reaction Status Date / Time YONTAAN Inhibitors AdvReac Mild Cough Verified 03/03/22 08:55 Home Meds Home Medications Medication Instructions Recorded Confirmed atorvastatin 40 mg tablet 40 mg PO QAM 09/02/18 04/30/22 amantadine HCl 100 mg capsule 100 mg PO DAILY 05/22/20 04/30/22 aspirin 81 mg tablet,delayed 81 mg PO QAM 02/02/21 04/30/22 release (Negar Low Dose Aspirin) pantoprazole 40 mg tablet,delayed 40 mg PO QAM 02/02/21 04/30/22 release donepezil 10 mg tablet 10 mg PO HS 05/11/21 04/30/22 magnesium oxide 400 mg PO QAM 05/11/21 04/30/22 melatonin 10 mg tablet 10 mg PO HS PRN 05/11/21 04/30/22 triamterene 37.5 1 tab PO 5XWK tab 05/11/21 04/30/22 mg-hydrochlorothiazide 25 mg tablet bupropion HCl 150 mg 24 hr tablet, 150 mg PO DAILY 06/17/21 04/30/22 extended release cephalexin 500 mg capsule 500 mg PO BID 06/17/21 04/30/22 fluocinonide 0.05 % topical 1 applic TOPICAL DAILY PRN 06/17/21 04/30/22 solution metformin 500 mg tablet,extended 500 mg PO QAM 06/17/21 04/30/22 release 24 hr donepezil 5 mg tablet 5 mg PO DAILY 03/03/22 04/30/22 dupilumab 300 mg/2 mL subcutaneous 300 mg SUBCUT .every 2 weeks ml 03/03/22 04/30/22 pen injector ([employer]) Previous Rx's Medication Instructions Recorded tamsulosin 0.4 mg capsule 0.4 mg PO HS #90 cap 12/11/19 furosemide 40 mg tablet 40 mg PO 2XWK #30 tab 05/11/21 ferrous sulfate 325 mg (65 mg 325 mg PO BID #60 tab 06/19/21 iron) tablet escitalopram oxalate 20 mg tablet 20 mg PO QAM #90 tab 03/29/22 potassium chloride 20 mEq 20 meq PO 2XWK #30 tab 04/15/22 tablet,extended release metoprolol succinate 25 mg 25 mg PO QAM #90 tab 04/19/22 tablet,extended release 24 hr Results & Data (ED) Vital Signs Vital Signs - 24 hr 04/30/22 12:48 04/30/22 13:34 04/30/22 14:00 Temperature 37.5 C Temperature Source Oral Pulse Rate 106 H 110 H 110 H Pulse Rate [Right Finger] Pulse Rate from SpO2 Sensor 105 H 110 H Pulse Rhythm [Right Finger] Pulse Strength [Right Finger] Respiratory Rate 33 H 35 H 43 H Respiratory Effort / Characteristics Non-Labored Respiratory Depth Normal Respiratory Pattern Regular Blood Pressure 156/87 H 189/82 H 175/78 H Blood Pressure [Right Arm] Blood Pressure Mean 110 117 110 Blood Pressure Mean [Right Arm] Blood Pressure Position [Right Arm] Pulse Oximetry 91 93 92 Oxygen Delivery Method Room Air Oxygen Flow Rate Sepsis Recent Fever Within 48 Hours No Sepsis New/Unexplained Change in Mental Status No Sepsis Action Taken by Nursing Physician Notified 04/30/22 14:30 04/30/22 15:00 Temperature Temperature Source Pulse Rate 108 H Pulse Rate [Right Finger] 106 H Pulse Rate from SpO2 Sensor 108 H Pulse Rhythm [Right Finger] Regular Pulse Strength [Right Finger] Normal Respiratory Rate 40 H 18 Respiratory Effort / Characteristics Non-Labored Respiratory Depth Normal Respiratory Pattern Regular Blood Pressure 160/86 H Blood Pressure [Right Arm] 158/69 H Blood Pressure Mean 110 Blood Pressure Mean [Right Arm] 98 Blood Pressure Position [Right Arm] Lying Pulse Oximetry 100 95 Oxygen Delivery Method Nasal Cannula Oxygen Flow Rate 2 Sepsis Recent Fever Within 48 Hours Sepsis New/Unexplained Change in Mental Status Sepsis Action Taken by Nursing Laboratory Data Result diagrams: 04/30/22 13:05 04/30/22 13:05 Lab Results 04/30/22 04/30/22 04/30/22 Range/Units 13:05 13:05 13:05 WBC 8.30 (4.8-10.8) K/ul RBC 3.33 L (4.63-6.08) M/uL Hgb 10.9 L (14.0-18.0) g/dl Hct 33.4 L (40.1-51.0) % MCV 100.3 H (80.0-100.0) fL MCH 32.7 (25.0-34.0) pg MCHC 32.6 (32.0-36.0) g/dL RDW Std Deviation 49.7 H (36.4-46.3) fL RDW Coeff of Anny 13.5 (11.5-14.5) % Plt Count 134 (130-400) K/uL MPV 9.1 L (9.4-12.4) fL Immature Gran % (Auto) 0.4 % Neut % (Auto) 89.4 % Lymph % (Auto) 4.6 % Wright % (Auto) 5.4 % Eos % (Auto) 0.1 % Baso % (Auto) 0.1 % Neut # (Auto) 7.42 H (1.4-6.5) K/uL Lymph # (Auto) 0.38 L (1.2-3.4) K/uL Wright # (Auto) 0.45 (0.24-0.82) K/uL Eos # (Auto) 0.01 (0-0.50) K/uL Baso # (Auto) 0.01 (0-0.2) K/uL Immature Gran # (Auto) 0.03 H (0.00-0.02) K/uL PT 11.1 (9.0-12.0) Seconds INR 1.0 (0.9-1.1) Sodium 139 (136-145) mmol/L Potassium 4.0 (3.5-5.1) mmol/L Chloride 104 (98-107) mmol/L Carbon Dioxide 27 (21-32) mmol/L Anion Gap 8 (3-11) BUN 24 H (6-23) mg/dl Creatinine 1.48 H (0.6-1.4) mg/dl Est Cr Clr Drug Dosing 41.2 ml/min Est GFR ( Amer) 51.8 ml/min Est GFR (Non-Af Amer) 44.7 ml/min BUN/Creatinine Ratio 16.2 (10-20) Glucose 169 H (70-99(Fasting)) mg/dl Lactate (0.4-2.0) mmol/L Calcium 9.8 (8.5-10.1) mg/dl Magnesium 1.4 L (1.7-2.4) mg/dl Total Bilirubin 0.7 (0.2-1.0) mg/dl Direct Bilirubin 0.1 (0-0.2) mg/dl AST 17 (13-39) U/L ALT 11 (7-52) U/L Alkaline Phosphatase 98 (34-104) U/L Troponin I High Sens 8.0 (0-20) pg/ml B-Natriuretic Peptide (0-100) pg/ml Total Protein 6.5 (6.0-8.3) gm/dl Albumin 4.3 (3.4-5.0) gm/dl Lipase 83 H (11-82) U/L Procalcitonin (0-0.5) ng/ml SARS-CoV-2, RNA, NAAT (NEGATIVE) Blood Type Antibody Screen Crossmatch 04/30/22 04/30/22 04/30/22 Range/Units 13:05 13:18 13:18 WBC (4.8-10.8) K/ul RBC (4.63-6.08) M/uL Hgb (14.0-18.0) g/dl Hct (40.1-51.0) % MCV (80.0-100.0) fL MCH (25.0-34.0) pg MCHC (32.0-36.0) g/dL RDW Std Deviation (36.4-46.3) fL RDW Coeff of Anny (11.5-14.5) % Plt Count (130-400) K/uL MPV (9.4-12.4) fL Immature Gran % (Auto) % Neut % (Auto) % Lymph % (Auto) % Wright % (Auto) % Eos % (Auto) % Baso % (Auto) % Neut # (Auto) (1.4-6.5) K/uL Lymph # (Auto) (1.2-3.4) K/uL Wright # (Auto) (0.24-0.82) K/uL Eos # (Auto) (0-0.50) K/uL Baso # (Auto) (0-0.2) K/uL Immature Gran # (Auto) (0.00-0.02) K/uL PT (9.0-12.0) Seconds INR (0.9-1.1) Sodium (136-145) mmol/L Potassium (3.5-5.1) mmol/L Chloride (98-107) mmol/L Carbon Dioxide (21-32) mmol/L Anion Gap (3-11) BUN (6-23) mg/dl Creatinine (0.6-1.4) mg/dl Est Cr Clr Drug Dosing ml/min Est GFR ( Amer) ml/min Est GFR (Non-Af Amer) ml/min BUN/Creatinine Ratio (10-20) Glucose (70-99(Fasting)) mg/dl Lactate 1.8 (0.4-2.0) mmol/L Calcium (8.5-10.1) mg/dl Magnesium (1.7-2.4) mg/dl Total Bilirubin (0.2-1.0) mg/dl Direct Bilirubin (0-0.2) mg/dl AST (13-39) U/L ALT (7-52) U/L Alkaline Phosphatase (34-104) U/L Troponin I High Sens (0-20) pg/ml B-Natriuretic Peptide (0-100) pg/ml Total Protein (6.0-8.3) gm/dl Albumin (3.4-5.0) gm/dl Lipase (11-82) U/L Procalcitonin 0.09 (0-0.5) ng/ml SARS-CoV-2, RNA, NAAT (NEGATIVE) Blood Type A Positive Antibody Screen NEGATIVE Crossmatch See Detail 04/30/22 04/30/22 Range/Units 13:18 14:30 WBC (4.8-10.8) K/ul RBC (4.63-6.08) M/uL Hgb (14.0-18.0) g/dl Hct (40.1-51.0) % MCV (80.0-100.0) fL MCH (25.0-34.0) pg MCHC (32.0-36.0) g/dL RDW Std Deviation (36.4-46.3) fL RDW Coeff of Anny (11.5-14.5) % Plt Count (130-400) K/uL MPV (9.4-12.4) fL Immature Gran % (Auto) % Neut % (Auto) % Lymph % (Auto) % Wright % (Auto) % Eos % (Auto) % Baso % (Auto) % Neut # (Auto) (1.4-6.5) K/uL Lymph # (Auto) (1.2-3.4) K/uL Wright # (Auto) (0.24-0.82) K/uL Eos # (Auto) (0-0.50) K/uL Baso # (Auto) (0-0.2) K/uL Immature Gran # (Auto) (0.00-0.02) K/uL PT (9.0-12.0) Seconds INR (0.9-1.1) Sodium (136-145) mmol/L Potassium (3.5-5.1) mmol/L Chloride (98-107) mmol/L Carbon Dioxide (21-32) mmol/L Anion Gap (3-11) BUN (6-23) mg/dl Creatinine (0.6-1.4) mg/dl Est Cr Clr Drug Dosing ml/min Est GFR ( Amer) ml/min Est GFR (Non-Af Amer) ml/min BUN/Creatinine Ratio (10-20) Glucose (70-99(Fasting)) mg/dl Lactate (0.4-2.0) mmol/L Calcium (8.5-10.1) mg/dl Magnesium (1.7-2.4) mg/dl Total Bilirubin (0.2-1.0) mg/dl Direct Bilirubin (0-0.2) mg/dl AST (13-39) U/L ALT (7-52) U/L Alkaline Phosphatase (34-104) U/L Troponin I High Sens (0-20) pg/ml B-Natriuretic Peptide 112 H (0-100) pg/ml Total Protein (6.0-8.3) gm/dl Albumin (3.4-5.0) gm/dl Lipase (11-82) U/L Procalcitonin (0-0.5) ng/ml SARS-CoV-2, RNA, NAAT NEGATIVE (NEGATIVE) Blood Type Antibody Screen Crossmatch Administered Medications Acetaminophen (Acetaminophen 325 Mg Tab) 650 mg PO Q4H PRN PRN Reason: Pain or Fever Stop: 05/30/22 17:53 Last Admin: 05/01/22 03:32 Dose: 650 mg Documented by: [id number] Cephalexin HCl (Cephalexin 500 Mg Cap) 500 mg PO BID JEANETH Stop: 05/30/22 20:59 Last Admin: 04/30/22 20:01 Dose: 500 mg Documented by: [id number] Donepezil HCl (Donepezil Hcl 10 Mg Tab) 10 mg PO HS JEANETH Stop: 05/30/22 20:59 Last Admin: 04/30/22 20:01 Dose: 10 mg Documented by: [id number] Ferrous Sulfate (Ferrous Sulfate 325 Mg Tab) 325 mg PO BID JEANETH Stop: 05/30/22 20:59 Last Admin: 04/30/22 21:48 Dose: 325 mg Documented by: [id number] Heparin Sodium (Porcine) (Heparin Sod 5,000 Unit/0.5 Ml Vial) 5,000 units SQ Q12 JEANETH Stop: 05/30/22 20:59 Last Admin: 04/30/22 20:01 Dose: 5,000 units Documented by: [id number] Insulin Aspart (Insulin Aspart Per Unit) 0 units SC ACHS [facility] Stop: 05/30/22 22:59 Last Admin: 04/30/22 23:06 Dose: 2 units Documented by: [id number] Cosigned by: [id number] Insulin Glargine (Lantus Per Unit Charge) 10 units SQ BID JEANETH Stop: 05/30/22 20:59 Last Admin: 04/30/22 20:33 Dose: 10 units Documented by: [id number] Cosigned by: [id number] Miscellaneous (Dupixent Pen 300 Mg/2 Ml Pen Injector ~ Order Awaiting Action) 1 ea N/A QS [facility] Stop: 05/31/22 00:00 Last Admin: 05/01/22 01:22 Dose: Not Given Documented by: [id number] Tamsulosin HCl (Tamsulosin Hcl 0.4 Mg Cap) 0.4 mg PO HS [facility] Stop: 05/30/22 20:59 Last Admin: 04/30/22 20:01 Dose: 0.4 mg Documented by: [id number] Discontinued Medications Albuterol (Albut/Ipratrop 3mg/0.5mg Neb 3 Ml Vial) 3 ml NEB NOW STA; Protocol Stop: 04/30/22 13:55 Last Admin: 04/30/22 14:13 Dose: 3 ml Documented by: [id number] Furosemide (Furosemide 40 Mg/4 Ml Vial) 40 mg IV ONE ONE Stop: 04/30/22 17:55 Last Admin: 04/30/22 18:37 Dose: 40 mg Documented by: [id number] Magnesium Sulfate/Dextrose (Magnesium Sulfate / D5w) 1 gm in 100 mls @ 100 mls/hr IV NOW STA Stop: 04/30/22 14:58 Last Infusion: 04/30/22 15:37 Dose: 0 mls/hr Documented by: [id number] Admin: 04/30/22 14:14 Dose: 100 mls/hr Documented by: [id number] Magnesium Sulfate/Dextrose (Magnesium Sulfate / D5w) 1 gm in 100 mls @ 50 mls/hr IV Q2H JEANETH Stop: 04/30/22 19:59 Last Infusion: 04/30/22 20:37 Dose: 0 mls/hr Documented by: [id number] Admin: 04/30/22 18:15 Dose: 50 mls/hr Documented by: [id number] Infusion: 04/30/22 18:05 Dose: 0 mls/hr Documented by: [id number] Admin: 04/30/22 16:01 Dose: 50 mls/hr Documented by: [id number] Insulin Aspart (Insulin Aspart Per Unit) 0 units SC ACHS JEANETH Stop: 05/30/22 17:53 Last Admin: 04/30/22 22:07 Dose: Not Given Documented by: [id number] Admin: 04/30/22 19:32 Dose: 4 units Documented by: [id number] Cosigned by: [id number] Ioversol (Optiray 320 125ml) 119 ml IV ONCE ONE Stop: 04/30/22 16:11 Last Admin: 04/30/22 16:12 Dose: 119 ml Documented by: [id number] Methylprednisolone (Methylprednisolone 125 Mg/2 Ml Vial) 125 mg IV NOW STA Stop: 04/30/22 13:59 Last Admin: 04/30/22 14:13 Dose: 125 mg Documented by: [id number] Ondansetron HCl (Ondansetron Inj 2 Mg/Ml 2 Ml Vial) 4 mg IV NOW STA Stop: 04/30/22 13:08 Last Admin: 04/30/22 13:30 Dose: 4 mg Documented by: [id number] Imaging Data Radiologist's Impression: Chest X-Ray 04/30/22 13:08 XR chest 1V portable CLINICAL HISTORY: shob. COMPARISON STUDY: 07/01/2021 TECHNIQUE: 1 view of the chest FINDINGS: Single frontal view of the chest demonstrates the heart to again be mildly enlarged. There is a decreased inspiratory effort with elevation of the hemidiaphragms and crowding of the bronchovascular markings at the lung bases and centrally. The lungs are clear of alveolar opacities. However, there is suspicion of small bilateral pleural effusion . There is no evidence for vascular congestion. There is no acute osseous pathology. IMPRESSION: 1. Decreased inspiration with suspicion of small bilateral pleural effusions. Follow-up PA and lateral radiographs would be helpful for further evaluation. ACT 112: Negative or not required by law. Electronically signed by: Uche De Anda M.D. 04/30/2022 2:21 PM Discharge Plan Visit Data Chief Complaint: Illness Stated Complaint: SOB, WEAKNESS, DIZZINESS ED Provider: Gil Liu Discharge Problem: CHF (congestive heart failure), Hypomagnesemia, COPD (chronic obstructive pulmonary disease) Patient Disposition: Admitted As Inpatient Discharge Instructions Interventions: ED Discharge Assessment Last Done: 04/30/22 17:24 Discharge Problem: CHF (congestive heart failure) Qualifiers: Heart failure type: diastolic Heart failure chronicity: acute Qualified Code(s): I50.31 - Acute diastolic (congestive) heart failure COPD (chronic obstructive pulmonary disease) Qualifiers: COPD type: COPD with acute exacerbation Qualified Code(s): J44.1 - Chronic obstructive pulmonary disease with (acute) exacerbation
[2022-04-30 13:38] LABS: Albumin Level 4.3 gm/dl (3.4-5.0); BUN Creatinine Ratio 16.2 (10-20); Bilirubin Direct 0.1 mg/dl (0-0.2); Bilirubin,Total 0.7 mg/dl (0.2-1.0); Calcium 9.8 mg/dl (8.5-10.1); Creatinine Clr Calc Pharmacy 41.2 ml/min; Est GFR (African American) 51.8 ml/min; Est GFR (Non-African American) 44.7 ml/min; Magnesium 1.4 mg/dl (1.7-2.4); Total Protein 6.5 gm/dl (6.0-8.3)
[2022-04-30] MEDS ORDERED: ALBUT/IPRATROP 3MG/0.5MG NEB 3 ML VIAL NEB STA (13:54)
[2022-04-30] MEDS ORDERED: methylPREDNISolone 125 MG/2 ML VIAL IV STA (13:58)
[2022-04-30] MEDS ORDERED: MAGNESIUM SULFATE / D5W 1 GM/100 ML BAG IV STA (13:59)
--- NOTE | 2022-04-30 14:23 | XRay Report ---
XR chest 1V portable CLINICAL HISTORY: shob. COMPARISON STUDY: 07/01/2021 TECHNIQUE: 1 view of the chest FINDINGS: Single frontal view of the chest demonstrates the heart to again be mildly enlarged. There is a decre ased inspiratory effort with elevation of the hemidiaphragms and crowding of the bronchovascular fab ings at the lung bases and centrally. The lungs are clear of alveolar opacities. However, there is vicente spicion of small bilateral pleural effusion . There is no evidence for vascular congestion. There is no acute osseous pathology. IMPRESSION: 1. Decreased inspiration with suspicion of small bilateral pleural effusions. Follow-up PA and latera l radiographs would be helpful for further evaluation. ACT 112: Negative or not required by law. Electronically signed by: Uche De Anda M.D. 04/30/2022 2:21 PM
--- NOTE | 2022-04-30 15:15 | History & Physical Report ---
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 His notes that he has had SOB, lightheadedness, and nausea x 1 week, and he has had worsening edema over this past week as well. Upon presentation, he was noted to have SaO2 of 88% improved to 95% on 2L/min nasal cannula Concern for acute CHF vs. PE. COVID testing negative. Admit for Obs on telemetry. Continue cardiac monitoring Consult Cardiology- sees [facility] Echocardiogram IV Lasix 40 mg x 1 dose CTA Chest to R/O PE Continue nasal cannula O2 to maintain SaO2 >92% Repeat CBC, BMP, Mag, Phos in AM Heart health/DM diet (5) Hypomagnesemia: Plan: Magnesium on admission 1.4. He was Given 1 g Mag in the ED. Give 2 g Mag now. Repeat Mag in AM (6) Primary parkinsonism: (7) Dementia associated with Parkinson's disease: Plan: Balance has been worse than usual. He uses a walker at home. Fall precautions PT/OT (8) HTN (hypertension): Plan: Monitor closely. Elevated upon admission. Will see response after Lasix (9) CKD (chronic kidney disease) stage 3, GFR 30-59 ml/min: Plan: Stable. Monitor (10) Diabetes type 2, controlled: Plan: Hold Metformin while inpatient. Sliding scale insulin (11) DVT prophylaxis: Plan: SQ Heparin Q12 History of Present Illness Chief Complaint: SOB Primary Care Provider: Michael Hinton MD Patient presented to the hospital today for worsening SOB at home. He has had SOB, balance issues, nausea, and lightheadedness has been going on for about 1 w [place] but got acutely worse this morning. His legs have been swollen, and his Railroad Dispatcher, Dr. Stanton increased his Lasix this past week per his . He had been on Triamterene- HCTZ, but Lasix 40 mg daily was added over the past week. He does have [facility] at home coming in and they called Cardiology to let them know that his legs have been more swollen. His SOB got much worse today which is why they presented to the hospital. He has had a mild headache but nothing severe. He has been feeling lightheaded. No chest pain, palpitations. No sore throat. He has been wheezing recently, and he has been coughing slightly. This morning, the cough was worse and had some mild mucus production which was clear. When he eats, he feels full quickly, and he has been feeling bloated which has been going on for about 1 month. His appetite has been poor. No pain or burning with urination, but he is unable to hold his urine. He has had loose bowel movements chronically. Patient has not history of smoking or COPD. He does have history of fluid overload as an outpatient for which he has previously been given Lasix twice weekly with potassium. He is also on triamterene-HCTZ daily per his , Ashley. Last Echocardiogram was done in 03/2020 which showed hyperdynamic EF >70% and grade I diastolic dysfunction along with mitral regurg. His CXR upon admission shows poor inspiratory effort and possible small pleural effusions. COVID negative. Allergies Allergy/AdvReac Type Severity Reaction Status Date / Time YONATAN Inhibitors AdvReac Mild Cough Verified 03/03/22 08:55 Home Medications Medication Instructions Recorded Confirmed Type atorvastatin 40 mg tablet 40 mg PO QAM 09/02/18 04/30/22 History tamsulosin 0.4 mg capsule 0.4 mg PO HS #90 cap 12/11/19 04/30/22 Rx amantadine HCl 100 mg capsule 100 mg PO DAILY 05/22/20 04/30/22 History aspirin 81 mg tablet,delayed 81 mg PO QAM 02/02/21 04/30/22 History release (Negar Low Dose Aspirin) pantoprazole 40 mg tablet,delayed 40 mg PO QAM 02/02/21 04/30/22 History release donepezil 10 mg tablet 10 mg PO HS 05/11/21 04/30/22 History furosemide 40 mg tablet 40 mg PO 2XWK #30 tab 05/11/21 04/30/22 Rx magnesium oxide 400 mg PO QAM 05/11/21 04/30/22 History melatonin 10 mg tablet 10 mg PO HS PRN 05/11/21 04/30/22 History triamterene 37.5 1 tab PO 5XWK tab 05/11/21 04/30/22 History mg-hydrochlorothiazide 25 mg tablet bupropion HCl 150 mg 24 hr tablet, 150 mg PO DAILY 06/17/21 04/30/22 History extended release cephalexin 500 mg capsule 500 mg PO BID 06/17/21 04/30/22 History fluocinonide 0.05 % topical 1 applic TOPICAL DAILY PRN 06/17/21 04/30/22 History solution metformin 500 mg tablet,extended 500 mg PO QAM 06/17/21 04/30/22 History release 24 hr ferrous sulfate 325 mg (65 mg 325 mg PO BID #60 tab 06/19/21 04/30/22 Rx iron) tablet donepezil 5 mg tablet 5 mg PO DAILY 03/03/22 04/30/22 History dupilumab 300 mg/2 mL subcutaneous 300 mg SUBCUT .every 2 weeks ml 03/03/22 04/30/22 History pen injector (Dupixent) escitalopram oxalate 20 mg tablet 20 mg PO QAM #90 tab 03/29/22 04/30/22 Rx potassium chloride 20 mEq 20 meq PO 2XWK #30 tab 04/15/22 04/30/22 Rx tablet,extended release metoprolol succinate 25 mg 25 mg PO QAM #90 tab 04/19/22 04/30/22 Rx tablet,extended release 24 hr 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 Diabetes type 2, controlled Diabetic ulcer of right heel associated with diabetes mellitus due to underlying condition, with fat layer exposed Dyslipidemia Fall GERD (gastroesophageal reflux disease) HTN (hypertension) HTN (hypertension) Lumbar spondylosis Moderate mitral regurgitation Orthostatic hypotension (07/2019) Peripheral arterial disease Primary parkinsonism Seasonal allergies Sensorineural hearing loss (SNHL) of both ears Sepsis due to group B Streptococcus (2018) 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 Father Hypertension, Onset Age: 40 at 40 Mother Hypertension COPD (chronic obstructive pulmonary disease) Diabetes Brother Allergies Asthma Denies family history of Prostate cancer Hearing loss No family history of adverse response to anesthesia No family history of bleeding disorder Heart disease Cancer Stroke Social History Smoking Status: Never smoker Hx Alcohol Use: No Hx Substance Use: No Preferred Language: Pashto Communication Ability: Effective Communication Ability Comment: Hard of hearing Building Code Inspector Required: No Beliefs That Will Affect Care: None marital status: Current Living Situation: Spouse Current Living Situation Comment: Other Information That Helps Us Care for You: No Feels Safe at Home: Yes Assistive Devices: Hearing Aid - Bilateral and Walker Review of Systems Review of Systems: All ROS negative other than mentioned in HPI Physical Exam 2 Physical Exam: See Dr. Baeza's addendum for physical exam findings. Results & Data Results & Data ([facility]) Vital Signs (Past 12 Hours) Vital Signs Temp Pulse Resp BP Pulse Ox 04/30/22 14:30 108 H 40 H 160/86 H 100 04/30/22 14:00 110 H 43 H 175/78 H 92 04/30/22 13:34 110 H 35 H 189/82 H 93 04/30/22 12:48 37.5 C 106 H 33 H 156/87 H 91 Laboratory Results Laboratory Results - last 24 hr 04/30/22 04/30/22 04/30/22 13:05 13:05 13:05 WBC 8.30 RBC 3.33 L Hgb 10.9 L Hct 33.4 L MCV 100.3 H MCH 32.7 MCHC 32.6 RDW Std Deviation 49.7 H RDW Coeff of Anny 13.5 Plt Count 134 MPV 9.1 L Immature Gran % (Auto) 0.4 Neut % (Auto) 89.4 Lymph % (Auto) 4.6 [place] % (Auto) 5.4 Eos % (Auto) 0.1 Baso % (Auto) 0.1 Neut # (Auto) 7.42 H Lymph # (Auto) 0.38 L [place] # (Auto) 0.45 Eos # (Auto) 0.01 Baso # (Auto) 0.01 Immature Gran # (Auto) 0.03 H PT 11.1 INR 1.0 Sodium 139 Potassium 4.0 Chloride 104 Carbon Dioxide 27 Anion Gap 8 BUN 24 H Creatinine 1.48 H Est Cr Clr Drug Dosing 41.2 Est GFR ( Amer) 51.8 Est GFR (Non-Af Amer) 44.7 BUN/Creatinine Ratio 16.2 Glucose 169 H Lactate Calcium 9.8 Magnesium 1.4 L Total Bilirubin 0.7 Direct Bilirubin 0.1 AST 17 ALT 11 Alkaline Phosphatase 98 Troponin I High Sens 8.0 B-Natriuretic Peptide Total Protein 6.5 Albumin 4.3 Lipase 83 H Procalcitonin SARS-CoV-2 (PCR) SARS-CoV-2, RNA, NAAT Blood Type Antibody Screen Crossmatch 04/30/22 04/30/22 04/30/22 13:05 13:18 13:18 WBC RBC Hgb Hct MCV MCH MCHC RDW Std Deviation RDW Coeff of Anny Plt Count MPV Immature Gran % (Auto) Neut % (Auto) Lymph % (Auto) [place] % (Auto) Eos % (Auto) Baso % (Auto) Neut # (Auto) Lymph # (Auto) [place] # (Auto) Eos # (Auto) Baso # (Auto) Immature Gran # (Auto) PT INR Sodium Potassium Chloride Carbon Dioxide Anion Gap BUN Creatinine Est Cr Clr Drug Dosing Est GFR ( Amer) Est GFR (Non-Af Amer) BUN/Creatinine Ratio Glucose Lactate 1.8 Calcium Magnesium Total Bilirubin Direct Bilirubin AST ALT Alkaline Phosphatase Troponin I High Sens B-Natriuretic Peptide Total Protein Albumin Lipase Procalcitonin 0.09 SARS-CoV-2 (PCR) SARS-CoV-2, RNA, NAAT Blood Type A Positive Antibody Screen NEGATIVE Crossmatch See Detail 04/30/22 04/30/22 04/30/22 13:18 14:30 15:42 WBC RBC Hgb Hct MCV MCH MCHC RDW Std Deviation RDW Coeff of Anny Plt Count MPV Immature Gran % (Auto) Neut % (Auto) Lymph % (Auto) [place] % (Auto) Eos % (Auto) Baso % (Auto) Neut # (Auto) Lymph # (Auto) [place] # (Auto) Eos # (Auto) Baso # (Auto) Immature Gran # (Auto) PT INR Sodium Potassium Chloride Carbon Dioxide Anion Gap BUN Creatinine Est Cr Clr Drug Dosing Est GFR ( Amer) Est GFR (Non-Af Amer) BUN/Creatinine Ratio Glucose Lactate Calcium Magnesium Total Bilirubin Direct Bilirubin AST ALT Alkaline Phosphatase Troponin I High Sens B-Natriuretic Peptide 112 H Total Protein Albumin Lipase Procalcitonin SARS-CoV-2 (PCR) Pending SARS-CoV-2, RNA, NAAT NEGATIVE Blood Type Antibody Screen Crossmatch Diagnostic Findings CXR: IMPRESSION: 1. Decreased inspiration with suspicion of small bilateral pleural effusions. Follow-up PA and lateral radiographs would be helpful for further evaluation. Supervising Physician Co-Signing Physician Notes 77-year-old gentleman with PMH of T2DM, CAD, HTN, GERD, CKD stage IIIa, medullary sponge kidney, BPH, recurrent cellulitis of lower extremity, primary parkinsonism, dementia, iron deficiency anemia presented to our ED 04/30/2022 with complaint of acute worsening of his breathing associated with lightheadedness today. Per patient's who was at bedside, patient was having hard time breathing since last 1 week on and off, recently his water mangle tender increased his diuretic dose yesterday, but he continued to worsen today and hence brought to the ED. Patient was nauseous and had dry cough in the morning which seems to have resolved at bedside. Also patient reports having both lower leg swollen, progressively worsening since last 1 week. Patient denies headache or chest pain or palpitation or sore throat. Patient does report decreased appetite for about a month. Patient denies any acute changes in his bowel or bladder habits. Pt does have urge incontinence at baseline. Patient denies any smoking/alcohol use/recreational drug use. Patient is full code Admitting CXR suggestive of small bilateral pleural effusion but decreased breath sounds mid to lower lung zones bilaterally on examination along with 2-3+ BLE pitting edema. Likely acute exacerbation of CHF. 2019 echo with EF greater than 70%. Repeat echo. IV Lasix , reassess in am. Cardiology consult. Oxygen as tolerated, wean down as appropriate. Due to concern of tachycardia and sudden worsening of breathing today, CTA chest obtained, negative for PE. Continue telemetry monitoring. Monitor and replete electrolytes, keep potassium and magnesium above 4 and 2 respectively Upon examination: GENERAL: Alert and oriented x3. NAD, receiving breathing treatment via Oxymask HEENT: No pallor, no icterus. Pupils equal, round and reactive to light. Oral mucosa moist. NECK: No JVD, no neck masses. HEART: S1 and S2 heard. Tachycardic. No murmur, no gallop. RESPIRATORY SYSTEM: Normal AP diameter. No accessory muscle use. No wheezing, + crackles. decreased breath sounds b/l mid and lower zones ABDOMEN: Soft, bowel sounds present, nontender, no distention. CENTRAL NERVOUS SYSTEM: No facial droop. Speech is clear. Obeys simple commands. Moves extremities. EXTREMITIES: 2-3+ BLE edema, no erythema seen. I have seen and examined the patient and have discussed the case with the provider above. I agree with the assessment and plan as stated.
[2022-04-30] MEDS: MAGNESIUM SULFATE / D5W 1 GM/100 ML BAG IV SCH ×2 (16:01→18:15)
[2022-04-30] MEDS ORDERED: OPTIRAY 320 125ml IV ONE (16:10)
--- NOTE | 2022-04-30 16:29 | CT Scan Report ---
CT angio chest PE protocol CLINICAL HISTORY: Shortness of breath, weakness and dizziness. COMPARISON STUDY: No previous studies for comparison. CT DOSE: 711.66 mGy.cm TECHNIQUE: CT Angio of the chest was performed.followed by image post processing with coronal, and s agittal MIP reformats. Contrast Volume: Optiray 320, 119 ml FINDINGS: Vasculature: There is homogeneous perfusion of the pulmonary vasculature bilaterally. No intraluminal filling defects or evidence for pulmonary embolus is seen. Airway: The airway is clear. No endobronchial lesion is identified. Lungs: There is elevation of hemidiaphragms with crowding of the bronchovascular markings at the lung bases bilaterally. The lungs are otherwise clear of acute alveolar opacities, air bronchograms or pu lmonary nodules. Pleura: There is no evidence for pleural effusion. There is no evidence for pneumothorax. Mediastinum: There is no evidence for pathologic adenopathy. The heart is mildly enlarged. The heart size is within normal limits. There is previous cardiothoracic surgery. The thoracic aorta is within normal limits. There is no evidence for pericardial effusion. Upper abdomen:The adrenal glands are normal bilaterally. Osseous structures: There is no acute osseous pathology. Degenerative changes are present within the spine. Impression: 1. No CTA evidence for pulmonary embolus. 2. No acute chest disease. 3. Nonacute findings are delineated above. ACT 112: Negative or not required by law. Electronically signed by: Uche De Anda M.D. 04/30/2022 4:26 PM
[2022-04-30] MEDS ORDERED: FUROSEMIDE 40 MG/4 ML VIAL IV ONE (17:54)
[2022-04-30] MEDS ORDERED: DEXTROSE 50% 50 ML SYRINGE IV PRN (17:54)
[2022-04-30] MEDS ORDERED: DC ALL PREVIOUSLY ORDERED DIABETES MEDS ONE (17:54)
[2022-04-30] MEDS ORDERED: GLUCAGON FOR INJ 1 MG VIAL SQ PRN (17:54)
[2022-04-30] MEDS ORDERED: GLUCOSE 10 TAB/TUBE PO PRN (17:54)
[2022-04-30] MEDS ORDERED: CARBOHYDRATES FOR HYPOGLYCEMIA PO PRN (17:54)
[2022-04-30] MEDS ORDERED: GLUCOSE 40% GEL 15 GM TUBE PO PRN (17:54)
[2022-04-30] MEDS: INSULIN ASPART PER UNIT SC SCH ×3 (19:32→23:06)
[2022-04-30] MEDS: TAMSULOSIN HCL 0.4 MG CAP PO SCH (20:01)
[2022-04-30] MEDS: HEPARIN SOD 5,000 UNIT/0.5 ML VIAL SQ SCH (20:01)
[2022-04-30] MEDS: cephALEXin 500 MG CAP PO SCH (20:01)
[2022-04-30] MEDS: LANTUS PER UNIT CHARGE SQ SCH (20:33)
[2022-04-30] MEDS ORDERED: DONEPEZIL HCL 10 MG TAB PO SCH (21:00)
[2022-04-30] MEDS: FERROUS SULFATE 325 MG TAB PO SCH (21:48)
[2022-04-30 23:25] LABS: Appearance Urine Clear (Clear); Bilirubin Urine Negative (Negative); Blood Urine Negative (Negative); Color Urine Yellow; Glucose Urine UA Negative (Negative); Ketones Urine Negative (Negative); Leukocyte Esterase Urine Negative (Negative); Nitrite Urine Negative (Negative); Protein Urine Negative (Negative); Specific Gravity Urine 1.018 (1.000-1.030); Urobilinogen Urine Negative (Negative)
[2022-05-01] MEDS: ACETAMINOPHEN 325 MG TAB PO PRN ×2 (03:32→20:01)
[2022-05-01 06:44] LABS: Hematocrit (blood only) 30.5 % (40.1-51.0); Mean Corpuscular Hemoglobin 33.4 pg (25.0-34.0); Mean Corpuscular Hgb Conc 32.8 g/dL (32.0-36.0); Mean Platelet Volume 9.7 fL (9.4-12.4); Platelet Count 120 K/uL (130-400); RDW Coefficient of Variation 13.3 % (11.5-14.5); RDW Standard Deviation 49.5 fL (36.4-46.3); Red Blood Count 2.99 M/uL (4.63-6.08); White Blood Count 9.24 K/ul (4.8-10.8)
[2022-05-01 07:01] LABS: Calcium 8.7 mg/dl (8.5-10.1); Creatinine Clr Calc Pharmacy 37.6 ml/min; Est GFR (African American) 44.4 ml/min; Est GFR (Non-African American) 38.3 ml/min; Magnesium 2.2 mg/dl (1.7-2.4); Phosphorus 5.5 mg/dl (2.5-4.9); Potassium 3.9 mmol/L (3.5-5.1)
[2022-05-01] MEDS: INSULIN ASPART PER UNIT SC SCH ×4 (08:53→21:39)
[2022-05-01] MEDS: ASPIRIN 81 MG ECTAB PO SCH (08:57)
[2022-05-01] MEDS: PANTOprazole 40 MG TAB PO SCH (08:57)
[2022-05-01] MEDS: ESCITALOPRAM OXALATE 20 MG TAB PO SCH (08:57)
[2022-05-01] MEDS: MAGNESIUM OXIDE 400 MG TAB PO SCH (08:57)
[2022-05-01] MEDS: FERROUS SULFATE 325 MG TAB PO SCH ×2 (08:57→21:04)
[2022-05-01] MEDS: METOPROLOL SUCC 25MG EXT REL TAB PO SCH (08:57)
[2022-05-01] MEDS: cephALEXin 500 MG CAP PO SCH ×2 (08:57→21:04)
[2022-05-01] MEDS: ATORVASTATIN 40 MG TAB PO SCH (08:57)
[2022-05-01] MEDS: buPROPion XL 150 MG TABCR PO SCH (08:57)
[2022-05-01] MEDS: AMANTADINE HCL 100 MG CAPSULE PO SCH (08:57)
[2022-05-01] MEDS: HEPARIN SOD 5,000 UNIT/0.5 ML VIAL SQ SCH ×2 (08:58→21:04)
[2022-05-01] MEDS ORDERED: TRIAMTERENE/HCTZ 37.5/25MG TAB PO SCH (09:00)
[2022-05-01] MEDS ORDERED: FUROSEMIDE 40 MG/4 ML VIAL IV SCH (09:00)
[2022-05-01] MEDS ORDERED: DONEPEZIL HCL 5 MG TAB PO SCH (09:00)
--- NOTE | 2022-05-01 09:13 | Cardiology Consultation ---
Date of Consultation May 01, 2022 Assessment & Plan (1) Acute respiratory failure with hypoxia: (2) Coronary artery disease: (3) Moderate mitral regurgitation: 1. Shortness of breath: He had an element of hypoxia at the time of admission. This could have been partially related to some pulmonary vascular congestion. However, his degree of heart failure appeared fairly mild. He did affect some diuresis with an initial dose of Lasix and received a 2nd dose this morning. His symptoms appear to have resolved although he may still require some element of supplemental oxygen. I do not think he requires further aggressive diuresis. I think he could be discharged on his usual home regimen with attention directed at monitoring his weight closely. I would recommend daily weights with an extra dose of Lasix already prescribed should his weight rise over 2 lb. He can continue his daily Maxzide. 2. Coronary disease: He has a history of bypass surgery. No current symptoms suggestive of coronary insufficiency or ischemia. Biomarkers normal. He can continue secondary prevention with atorvastatin and aspirin. 3. mitral regurgitation: Mild on last examination 1 year ago. 4. Wandering atrial pacemaker: He has a history of an atrial arrhythmia. This was not seen on his recent EKG. He has been maintained on beta-blockade for arrhythmia and coronary disease. History of Present Illness Reason for Consultation: shortness of breath Attending Physician: Sonia Dale MD History of Present Illness the patient is a 69-year-old gentleman with an extensive cardiac history to include coronary disease and a right coronary artery aneurysm. He underwent 3 vessel bypass and excision of the aneurysm in 2011. He is also known to have an element of mitral valve prolapse and mild mitral regurgitation. Overall left ventricular systolic function has been normal. He also suffers from Parkinson's disease and mild dementia. He was brought to the emergency room by his yesterday due to concerns over breathing difficulty. The history was obtained from the patient in the chart. he recalls feeling fairly acutely short of breath yesterday after eating a meal. He thought the difficulty breathing was perhaps due to feeling full. His felt that his symptoms have been progressive over the course of a week. He did not recall any associated chest pain. He has not been aware of any palpitations. His activity is limited by his Parkinson's disease but he did not report any new limitations or symptoms associated with activity. No dizziness or lightheadedness. No orthopnea. He does report some chronic lower extremity edema. The patient was administered intravenous diuretic. He states that this morning he is feeling well. He reported sleeping well last night. He did not report any breathing difficulty today. Allergies Allergy/AdvReac Type Severity Reaction Status Date / Time YONATAN Inhibitors AdvReac Mild Cough Verified 03/03/22 08:55 Home Medications Medication Instructions Recorded Confirmed Type atorvastatin 40 mg tablet 40 mg PO QAM 09/02/18 04/30/22 History tamsulosin 0.4 mg capsule 0.4 mg PO HS #90 cap 12/11/19 04/30/22 Rx amantadine HCl 100 mg capsule 100 mg PO DAILY 05/22/20 04/30/22 History aspirin 81 mg tablet,delayed 81 mg PO QAM 02/02/21 04/30/22 History release (Negar Low Dose Aspirin) pantoprazole 40 mg tablet,delayed 40 mg PO QAM 02/02/21 04/30/22 History release donepezil 10 mg tablet 10 mg PO HS 05/11/21 04/30/22 History furosemide 40 mg tablet 40 mg PO 2XWK #30 tab 05/11/21 04/30/22 Rx magnesium oxide 400 mg PO QAM 05/11/21 04/30/22 History melatonin 10 mg tablet 10 mg PO HS PRN 05/11/21 04/30/22 History triamterene 37.5 1 tab PO 5XWK tab 05/11/21 04/30/22 History mg-hydrochlorothiazide 25 mg tablet bupropion HCl 150 mg 24 hr tablet, 150 mg PO DAILY 06/17/21 04/30/22 History extended release cephalexin 500 mg capsule 500 mg PO BID 06/17/21 04/30/22 History fluocinonide 0.05 % topical 1 applic TOPICAL DAILY PRN 06/17/21 04/30/22 History solution metformin 500 mg tablet,extended 500 mg PO QAM 06/17/21 04/30/22 History release 24 hr ferrous sulfate 325 mg (65 mg 325 mg PO BID #60 tab 06/19/21 04/30/22 Rx iron) tablet donepezil 5 mg tablet 5 mg PO DAILY 03/03/22 04/30/22 History dupilumab 300 mg/2 mL subcutaneous 300 mg SUBCUT .every 2 weeks ml 03/03/22 04/30/22 History pen injector (Dupixent) escitalopram oxalate 20 mg tablet 20 mg PO QAM #90 tab 03/29/22 04/30/22 Rx potassium chloride 20 mEq 20 meq PO 2XWK #30 tab 04/15/22 04/30/22 Rx tablet,extended release metoprolol succinate 25 mg 25 mg PO QAM #90 tab 04/19/22 04/30/22 Rx tablet,extended release 24 hr Patient History Medical History (Updated 05/01/22 @ 09:07 by Jw Ward MD) Adverse reaction to anesthetic agent Anxiety Arthritis BPH (benign prostatic hyperplasia) Carpal tunnel syndrome Cataracts, bilateral CHI (closed head injury) CKD (chronic kidney disease) stage 3, GFR 30-59 ml/min 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 Diabetes type 2, controlled Diabetic ulcer of right heel associated with diabetes mellitus due to underlying condition, with fat layer exposed Dyslipidemia Fall GERD (gastroesophageal reflux disease) HTN (hypertension) HTN (hypertension) Lumbar spondylosis Moderate mitral regurgitation Orthostatic hypotension (07/2019) Peripheral arterial disease Primary parkinsonism Seasonal allergies Sensorineural hearing loss (SNHL) of both ears Sepsis due to group B Streptococcus (2017) 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 Father Hypertension, Onset Age: 40 at 40 Mother Hypertension COPD (chronic obstructive pulmonary disease) Diabetes Brother Allergies Asthma Denies family history of Prostate cancer Hearing loss No family history of adverse response to anesthesia No family history of bleeding disorder Heart disease Cancer Stroke Social History Smoking Status: Never smoker Hx Alcohol Use: No Hx Substance Use: No Preferred Language: Kyrgyz Communication Ability: Effective Communication Ability Comment: Hard of hearing Manager Er Required: No Beliefs That Will Affect Care: None marital status: Current Living Situation: Spouse Current Living Situation Comment: Other Information That Helps Us Care for You: No Feels Safe at Home: Yes Assistive Devices: Hearing Aid - Bilateral and Walker Review of Systems Review of Systems: Per HPI. No complaints of pain. Some forgetfulness. Physical Exam Physical Exam: The patient is alert and oriented. Mood and affect appeared normal. He answered all questions appropriately. He had difficulty recalling certain events. HEENT: Pupils are equal and reactive to light and accommodation. Extraocular movements are intact. The sclerae are anicteric. Neuro: Cranial nerves intact Lungs: Clear to auscultation bilaterally. He has good air movement without use of accessory muscles. No rales wheezes or rhonchi. Cardiac: Heart demonstrates a regular rate and rhythm. Normal S1 and S2. Crescendo systolic murmur heard best at the apex. Pulses: The patient has palpable radial pulses bilaterally that are equal in in tensity Extremities: There was no evidence of hypoperfusion. There is no cyanosis or clubbing. mild edema primarily in the feet, right worse than left. Skin: I did not appreciate any rashes on examination today. Results & Data ([facility]) Vital Signs (Past 12 Hours) Vital Signs Temp Pulse Pulse Resp BP Pulse Ox 05/01/22 07:38 36.5 C 84 16 128/71 95 05/01/22 07:35 94 H 05/01/22 03:18 36.5 C 91 H 20 123/71 94 04/30/22 23:26 36.8 C 94 H 24 136/75 94 04/30/22 23:00 95 H Laboratory Results Abnormal Lab Results 04/30/22 04/30/22 04/30/22 13:05 13:05 13:05 WBC 8.30 RBC 3.33 L Hgb 10.9 L Hct 33.4 L MCV 100.3 H MCH 32.7 MCHC 32.6 RDW Std Deviation 49.7 H RDW Coeff of Anny 13.5 Plt Count 134 MPV 9.1 L Immature Gran % (Auto) 0.4 Neut % (Auto) 89.4 Lymph % (Auto) 4.6 [place] % (Auto) 5.4 Eos % (Auto) 0.1 Baso % (Auto) 0.1 Neut # (Auto) 7.42 H Lymph # (Auto) 0.38 L [place] # (Auto) 0.45 Eos # (Auto) 0.01 Baso # (Auto) 0.01 Immature Gran # (Auto) 0.03 H PT 11.1 INR 1.0 Sodium 139 Potassium 4.0 Chloride 104 Carbon Dioxide 27 Anion Gap 8 BUN 24 H Creatinine 1.48 H Est Cr Clr Drug Dosing 41.2 Est GFR ( Amer) 51.8 Est GFR (Non-Af Amer) 44.7 BUN/Creatinine Ratio 16.2 Glucose 169 H POC Glucose Lactate Calcium 9.8 Phosphorus Magnesium 1.4 L Total Bilirubin 0.7 Direct Bilirubin 0.1 AST 17 ALT 11 Alkaline Phosphatase 98 Troponin I High Sens 8.0 B-Natriuretic Peptide Total Protein 6.5 Albumin 4.3 Lipase 83 H Procalcitonin Urine Color Urine Appearance Urine pH Ur Specific [place] Urine Protein Urine Glucose (UA) Urine Ketones Urine Blood Urine Nitrite Urine Bilirubin Urine Urobilinogen Ur Leukocyte Esterase SARS-CoV-2 (PCR) SARS-CoV-2, RNA, NAAT Blood Type Antibody Screen Crossmatch 04/30/22 04/30/22 04/30/22 13:05 13:18 13:18 WBC RBC Hgb Hct MCV MCH MCHC RDW Std Deviation RDW Coeff of Anny Plt Count MPV Immature Gran % (Auto) Neut % (Auto) Lymph % (Auto) [place] % (Auto) Eos % (Auto) Baso % (Auto) Neut # (Auto) Lymph # (Auto) [place] # (Auto) Eos # (Auto) Baso # (Auto) Immature Gran # (Auto) PT INR Sodium Potassium Chloride Carbon Dioxide Anion Gap BUN Creatinine Est Cr Clr Drug Dosing Est GFR ( Amer) Est GFR (Non-Af Amer) BUN/Creatinine Ratio Glucose POC Glucose Lactate 1.8 Calcium Phosphorus Magnesium Total Bilirubin Direct Bilirubin AST ALT Alkaline Phosphatase Troponin I High Sens B-Natriuretic Peptide Total Protein Albumin Lipase Procalcitonin 0.09 Urine Color Urine Appearance Urine pH Ur Specific [place] Urine Protein Urine Glucose (UA) Urine Ketones Urine Blood Urine Nitrite Urine Bilirubin Urine Urobilinogen Ur Leukocyte Esterase SARS-CoV-2 (PCR) SARS-CoV-2, RNA, NAAT Blood Type A Positive Antibody Screen NEGATIVE Crossmatch See Detail 04/30/22 04/30/22 04/30/22 13:18 14:30 15:42 WBC RBC Hgb Hct MCV MCH MCHC RDW Std Deviation RDW Coeff of Anny Plt Count MPV Immature Gran % (Auto) Neut % (Auto) Lymph % (Auto) [place] % (Auto) Eos % (Auto) Baso % (Auto) Neut # (Auto) Lymph # (Auto) [place] # (Auto) Eos # (Auto) Baso # (Auto) Immature Gran # (Auto) PT INR Sodium Potassium Chloride Carbon Dioxide Anion Gap BUN Creatinine Est Cr Clr Drug Dosing Est GFR ( Amer) Est GFR (Non-Af Amer) BUN/Creatinine Ratio Glucose POC Glucose Lactate Calcium Phosphorus Magnesium Total Bilirubin Direct Bilirubin AST ALT Alkaline Phosphatase Troponin I High Sens B-Natriuretic Peptide 112 H Total Protein Albumin Lipase Procalcitonin Urine Color Urine Appearance Urine pH Ur Specific [place] Urine Protein Urine Glucose (UA) Urine Ketones Urine Blood Urine Nitrite Urine Bilirubin Urine Urobilinogen Ur Leukocyte Esterase SARS-CoV-2 (PCR) Cancelled SARS-CoV-2, RNA, NAAT NEGATIVE Blood Type Antibody Screen Crossmatch 04/30/22 04/30/22 04/30/22 17:58 19:23 22:55 WBC RBC Hgb Hct MCV MCH MCHC RDW Std Deviation RDW Coeff of Anny Plt Count MPV Immature Gran % (Auto) Neut % (Auto) Lymph % (Auto) [place] % (Auto) Eos % (Auto) Baso % (Auto) Neut # (Auto) Lymph # (Auto) [place] # (Auto) Eos # (Auto) Baso # (Auto) Immature Gran # (Auto) PT INR Sodium Potassium Chloride Carbon Dioxide Anion Gap BUN Creatinine Est Cr Clr Drug Dosing Est GFR ( Amer) Est GFR (Non-Af Amer) BUN/Creatinine Ratio Glucose POC Glucose 213 H 228 H 213 H Lactate Calcium Phosphorus Magnesium Total Bilirubin Direct Bilirubin AST ALT Alkaline Phosphatase Troponin I High Sens B-Natriuretic Peptide Total Protein Albumin Lipase Procalcitonin Urine Color Urine Appearance Urine pH Ur Specific [place] Urine Protein Urine Glucose (UA) Urine Ketones Urine Blood Urine Nitrite Urine Bilirubin Urine Urobilinogen Ur Leukocyte Esterase SARS-CoV-2 (PCR) SARS-CoV-2, RNA, NAAT Blood Type Antibody Screen Crossmatch 04/30/22 05/01/22 05/01/22 23:00 06:18 06:18 WBC 9.24 RBC 2.99 L Hgb 10.0 L Hct 30.5 L MCV 102.0 H MCH 33.4 MCHC 32.8 RDW Std Deviation 49.5 H RDW Coeff of Anny 13.3 Plt Count 120 L MPV 9.7 Immature Gran % (Auto) Neut % (Auto) Lymph % (Auto) [place] % (Auto) Eos % (Auto) Baso % (Auto) Neut # (Auto) Lymph # (Auto) [place] # (Auto) Eos # (Auto) Baso # (Auto) Immature Gran # (Auto) PT INR Sodium 139 Potassium 3.9 Chloride 104 Carbon Dioxide 28 Anion Gap 7 BUN 32 H Creatinine 1.68 H Est Cr Clr Drug Dosing 37.6 Est GFR ( Amer) 44.4 Est GFR (Non-Af Amer) 38.3 BUN/Creatinine Ratio 19.0 Glucose 169 H POC Glucose Lactate Calcium 8.7 Phosphorus 5.5 H Magnesium 2.2 Total Bilirubin Direct Bilirubin AST ALT Alkaline Phosphatase Troponin I High Sens B-Natriuretic Peptide Total Protein Albumin Lipase Procalcitonin Urine Color Yellow Urine Appearance Clear Urine pH 5.0 Ur Specific [place] 1.018 Urine Protein Negative Urine Glucose (UA) Negative Urine Ketones Negative Urine Blood Negative Urine Nitrite Negative Urine Bilirubin Negative Urine Urobilinogen Negative Ur Leukocyte Esterase Negative SARS-CoV-2 (PCR) SARS-CoV-2, RNA, NAAT Blood Type Antibody Screen Crossmatch 05/01/22 07:19 WBC RBC Hgb Hct MCV MCH MCHC RDW Std Deviation RDW Coeff of Anny Plt Count MPV Immature Gran % (Auto) Neut % (Auto) Lymph % (Auto) [place] % (Auto) Eos % (Auto) Baso % (Auto) Neut # (Auto) Lymph # (Auto) [place] # (Auto) Eos # (Auto) Baso # (Auto) Immature Gran # (Auto) PT INR Sodium Potassium Chloride Carbon Dioxide Anion Gap BUN Creatinine Est Cr Clr Drug Dosing Est GFR ( Amer) Est GFR (Non-Af Amer) BUN/Creatinine Ratio Glucose POC Glucose 180 H Lactate Calcium Phosphorus Magnesium Total Bilirubin Direct Bilirubin AST ALT Alkaline Phosphatase Troponin I High Sens B-Natriuretic Peptide Total Protein Albumin Lipase Procalcitonin Urine Color Urine Appearance Urine pH Ur Specific [place] Urine Protein Urine Glucose (UA) Urine Ketones Urine Blood Urine Nitrite Urine Bilirubin Urine Urobilinogen Ur Leukocyte Esterase SARS-CoV-2 (PCR) SARS-CoV-2, RNA, NAAT Blood Type Antibody Screen Crossmatch Diagnostic Findings chest x-ray obtained the time of admission did not reveal any acute cardiopulmonary findings. Echocardiogram performed 02/11/2021 revealed normal LV systolic function with ejection fraction of 55-60%. Mild LVH. mitral valve prolapse with mild mitral regurgitation. ECG Additional Comments: EKG obtained the time admission revealed a sinus tachycardia with first-degree AV block. 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 essentially unchanged from prior with exception of the rate. PG Care Time/CCT Total # of Minutes Spent Total Time Spent with Patient: Total time spent is greater than 50% in coordination of care (as documented) at patient's floor/unit and/or counseling patient: Coding Level of Care Code INT OBSERVATION CARE 69M LVL 3 Diagnoses Acute respiratory failure with hypoxia J96.01 Coronary artery disease I25.10 Moderate mitral regurgitation I34.0
[2022-05-01] MEDS: LANTUS PER UNIT CHARGE SQ SCH ×2 (09:19→21:41)
--- NOTE | 2022-05-01 12:05 | Electrocardiogram Report ---
Test Reason : Blood Pressure : / mmHG Vent. Rate : 105 BPM Atrial Rate : 105 BPM P-R Int : 216 ms QRS Dur : 090 ms QT Int : 336 ms P-R-T Axes : 054 -42 113 degrees QTc Int : 444 ms Sinus tachycardia with 1st degree A-V block Left axis deviation Inferior infarct (cited on or before 01-JUL-2021) Incomplete right bundle branch block Abnormal ECG When compared with ECG of 01-JUL-2021 14:20, Vent. rate has increased BY 46 BPM Nonspecific T wave abnormality no longer evident in Inferior leads T wave inversion less evident in Lateral leads Confirmed by Jw Ward ([id number]) on 05/01/2022 12:05:26 PM Referred By: REFERRED SELF Confirmed By:Eduar Ward
[2022-05-01] MEDS ORDERED: LOPERAMIDE HCL 2 MG CAP PO STA (14:00)
[2022-05-01] MEDS ORDERED: LOPERAMIDE HCL 2 MG CAP PO PRN (14:23)
--- NOTE | 2022-05-01 14:23 | Hospitalist Progress Note ---
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 His noted that he has had SOB, lightheadedness, and nausea x 1 week, and he has had worsening edema over this past week as well. Upon presentation, he was noted to have SaO2 of 88% improved to 95% on 2L/min nasal cannula Concern for acute CHF Got IV lasix CTA did not show any PE or acute lung disease Acute hypoxic respiratory failure improved today 2 step show no oxygen requirement at rest and 2l/min with activity Cardiology eval and recommendations noted TTE showed EF 60-65%, mild conc LVH, mild AV sclerosis, mild AR, moderate posterior MV leaflet prolapse, mild to mod anterior MV prolapse, mild MR Card recommend no further aggressive diuresis. Patient to continue home meds including the lasix Patient to check daily weight at home and to take extra lasix if weight increases >2lb. made aware (5) Hypomagnesemia: Plan: Magnesium on admission 1.4. Got repleted on admission Mag is 2.2 today (6) Primary parkinsonism: (7) Dementia associated with Parkinson's disease: Plan: Balance has been worse than usual. He uses a walker at home. Fall precautions PT evaluation noted. No rehab rec at this time (8) HTN (hypertension): Plan: Monitor closely. Elevated upon admission. Will see response after Lasix (9) CKD (chronic kidney disease) stage 3, GFR 30-59 ml/min: Plan: Cr increased from 1.48 on admission to 1.68 likely due to diuresis (10) Diabetes type 2, controlled: Plan: Hold Metformin while inpatient. Sliding scale insulin (11) Diarrhea: Plan: Diarrhea. C diff is negative Stool studies + for salmonella Start ciprofloxacin (12) DVT prophylaxis: Plan: SQ Heparin Q12 Plan: reported she cannot take care of him all by herself at this time and not comfortable taking him home today She is ok with dc tomorrow with services. Discussed with CM. Plan for dc tomorrow Admission and Anticipated Discharge Date Admission Date: April 30, 2022 Subjective Patient was seen and examined. Patient reports feeling better. Denies any shortness of breath at rest. Reported some with activity sometimes. Has leg edema. Reports some cough but improved today Denied any chest pain, palpitations Denied any nausea, vomiting or constipation Reports diarrhea and abd fullness. reports he has IBS but I do not see this diagnosis documented per his PCP/EPIC chart. She did report patient occasionally has bowel incontinence Denied chills, fevers Denied any dysuria, freq, urgency at home Physical Exam Constitutional: + well hydrated; no acute distress Eyes: PERRL, conjunctivae normal, anicteric sclerae ENMT: external ear and nose normal, oropharynx normal +Hearing deficits Respiratory: normal respiratory effort, lungs clear to auscultation Cardiovascular: Rate/Rhythm: regular rate and regular rhythm S1 S2 Gastrointestinal (Abdomen): normal bowel sounds, soft, nontender, no hepatosplenomegaly Musculoskeletal: +pedal edema Neurologic: PERRL, EOMI, accommodation nl, no face palsy, no dysarthria Psychiatric: Alert and oriented to person and place. Euthymic affect Results & Data Results & Data ([facility]) Vital Signs (Past 12 Hours) Vital Signs Temp Pulse Pulse Pulse Pulse Pulse Pulse 05/01/22 13:13 05/01/22 13:04 36.4 C L 78 05/01/22 12:55 78 90 79 74 05/01/22 07:38 36.5 C 84 05/01/22 07:35 94 H 05/01/22 03:18 36.5 C 91 H Resp Resp Resp Resp Resp BP Pulse Ox 05/01/22 13:13 97 05/01/22 13:04 20 119/62 92 05/01/22 12:55 20 22 18 16 05/01/22 07:38 16 128/71 95 05/01/22 07:35 05/01/22 03:18 20 123/71 94 Pulse Ox Pulse Ox Pulse Ox Pulse Ox 05/01/22 13:13 05/01/22 13:04 05/01/22 12:55 90 85 L 91 90 05/01/22 07:38 05/01/22 07:35 05/01/22 03:18 Laboratory Results Abnormal lab results 04/30/22 04/30/22 04/30/22 Range/Units 17:58 19:23 22:55 RBC (4.63-6.08) M/uL Hgb (14.0-18.0) g/dl Hct (40.1-51.0) % MCV (80.0-100.0) fL RDW Std Deviation (36.4-46.3) fL Plt Count (130-400) K/uL BUN (6-23) mg/dl Creatinine (0.6-1.4) mg/dl Glucose (70-99(Fasting)) mg/dl POC Glucose 213 H 228 H 213 H (70-99) mg/dl Phosphorus (2.5-4.9) mg/dl 05/01/22 05/01/22 05/01/22 Range/Units 06:18 06:18 07:19 RBC 2.99 L (4.63-6.08) M/uL Hgb 10.0 L (14.0-18.0) g/dl Hct 30.5 L (40.1-51.0) % MCV 102.0 H (80.0-100.0) fL RDW Std Deviation 49.5 H (36.4-46.3) fL Plt Count 120 L (130-400) K/uL BUN 32 H (6-23) mg/dl Creatinine 1.68 H (0.6-1.4) mg/dl Glucose 169 H (70-99(Fasting)) mg/dl POC Glucose 180 H (70-99) mg/dl Phosphorus 5.5 H (2.5-4.9) mg/dl 05/01/22 Range/Units 11:28 RBC (4.63-6.08) M/uL Hgb (14.0-18.0) g/dl Hct (40.1-51.0) % MCV (80.0-100.0) fL RDW Std Deviation (36.4-46.3) fL Plt Count (130-400) K/uL BUN (6-23) mg/dl Creatinine (0.6-1.4) mg/dl Glucose (70-99(Fasting)) mg/dl POC Glucose 172 H (70-99) mg/dl Phosphorus (2.5-4.9) mg/dl (1) CHF (congestive heart failure) Heart failure chronicity: acute Heart failure type: diastolic Qualified Code(s): I50.31 - Acute diastolic (congestive) heart failure
[2022-05-01 16:08] LABS: Adenovirus F 40/41 PCR Not Detected (NotDetected); Astrovirus PCR Not Detected (NotDetected); Campylobacter PCR Not Detected (NotDetected); Clostridium diff Toxin A/B PCR Not Detected (NotDetected); Cryptosporidium PCR Not Detected (NotDetected); Cyclospora cayetanensis PCR Not Detected (NotDetected); Entamoeba histolytica PCR Not Detected (NotDetected); Enteroaggregative E.coli(EAEC) Not Detected (NotDetected); Enteropathogenic E.coli (EPEC) Not Detected (NotDetected); Enterotoxigenic E.coli (ETEC) Not Detected (NotDetected); Giardia lamblia PCR Not Detected (NotDetected); Norovirus GI/GII PCR Not Detected (NotDetected); Plesiomonas shigelloides PCR Not Detected (NotDetected); Rotavirus A PCR Not Detected (NotDetected); Sapovirus PCR Not Detected (NotDetected); Shiga-like Toxin E.coli (STEC) Not Detected (NotDetected); Shigella/Enteroinvasive E.coli Not Detected (NotDetected); Vibrio cholerae PCR Not Detected (NotDetected); Vibrio species PCR Not Detected (NotDetected); Yersinia enterocolitica PCR Not Detected (NotDetected)
[2022-05-01] MEDS ORDERED: ALBUTEROL 0.083% NEBU SOLN 3 ML VIAL NEB PRN (16:15)
[2022-05-01 16:23] LABS: Salmonella PCR DETECTED (NotDetected)
[2022-05-01] MEDS: CIPROFLOXACIN / D5W 400 MG/200 ML BAG IV SCH (17:24)
[2022-05-01] MEDS ORDERED: ONDANSETRON INJ 2 MG/ML 2 ML VIAL IV PRN (18:33)
[2022-05-01] MEDS: TAMSULOSIN HCL 0.4 MG CAP PO SCH (21:04)
[2022-05-02] MEDS: CIPROFLOXACIN / D5W 400 MG/200 ML BAG IV SCH ×2 (05:07→17:37)
[2022-05-02 07:08] LABS: BUN Creatinine Ratio 19.8 (10-20); Calcium 7.8 mg/dl (8.5-10.1); Est GFR (African American) 35.6 ml/min; Est GFR (Non-African American) 30.7 ml/min; Phosphorus 4.8 mg/dl (2.5-4.9); Potassium 3.5 mmol/L (3.5-5.1)
[2022-05-02] MEDS: MAGNESIUM OXIDE 400 MG TAB PO SCH (08:37)
[2022-05-02] MEDS: AMANTADINE HCL 100 MG CAPSULE PO SCH (08:37)
[2022-05-02] MEDS: ATORVASTATIN 40 MG TAB PO SCH (08:37)
[2022-05-02] MEDS: FERROUS SULFATE 325 MG TAB PO SCH ×2 (08:37→20:40)
[2022-05-02] MEDS: INSULIN ASPART PER UNIT SC SCH ×4 (08:37→20:38)
[2022-05-02] MEDS: buPROPion XL 150 MG TABCR PO SCH (08:37)
[2022-05-02] MEDS: ASPIRIN 81 MG ECTAB PO SCH (08:37)
[2022-05-02] MEDS: ESCITALOPRAM OXALATE 20 MG TAB PO SCH (08:37)
[2022-05-02] MEDS: ACETAMINOPHEN 325 MG TAB PO PRN (08:37)
[2022-05-02] MEDS: cephALEXin 500 MG CAP PO SCH ×2 (08:37→20:40)
[2022-05-02] MEDS: METOPROLOL SUCC 25MG EXT REL TAB PO SCH (08:37)
[2022-05-02] MEDS: PANTOprazole 40 MG TAB PO SCH (08:37)
[2022-05-02] MEDS: LANTUS PER UNIT CHARGE SQ SCH ×2 (08:44→20:44)
[2022-05-02] MEDS: HEPARIN SOD 5,000 UNIT/0.5 ML VIAL SQ SCH ×2 (09:34→20:40)
--- NOTE | 2022-05-02 13:17 | Hospitalist Progress Note ---
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 His noted that he has had SOB, lightheadedness, and nausea x 1 week, and he has had worsening edema over this past week as well. Upon presentation, he was noted to have SaO2 of 88% improved to 95% on 2L/min nasal cannula Concern for acute CHF Got IV lasix on admission CTA did not show any PE or acute lung disease Acute hypoxic respiratory failure improved 2 step show no oxygen requirement at rest and 2l/min with activity Cardiology eval and recommendations noted TTE showed EF 60-65%, mild conc LVH, mild AV sclerosis, mild AR, moderate posterior MV leaflet prolapse, mild to mod anterior MV prolapse, mild MR Card recommend no further aggressive diuresis. Patient to continue home meds including the lasix Patient to check daily weight at home and to take extra lasix if weight increases >2lb per card rec (5) Diarrhea: Plan: Diarrhea. C diff is negative Stool studies + for salmonella Continue ciprofloxacin In the setting of new fever, get blood culture to rule out bacteremia Lactate is 2 KUB Antiemetic prn Consider gentle IVF if any more episodes (6) Hypomagnesemia: Plan: Magnesium on admission 1.4. Got repleted on admission Mag is 2 today (7) Primary parkinsonism: (8) Dementia associated with Parkinson's disease: Plan: Balance has been worse than usual. He uses a walker at home. Fall precautions PT evaluation noted. No rehab rec at this time (9) HTN (hypertension): Plan: Stable (10) CKD (chronic kidney disease) stage 3, GFR 30-59 ml/min: Plan: Has DORYS on CKD 3 today Likely from GI losses with vomiting and diarrhea Hold all diuretic including maxide Recheck BMP later. May give IVF if needed (11) Diabetes type 2, controlled: Plan: Hold Metformin while inpatient. Sliding scale insulin (12) DVT prophylaxis: Plan: SQ Heparin Q12 Will need HH on dc Admission and Anticipated Discharge Date Admission Date: May 02, 2022 Subjective Patient was seen and examined. Had some nausea and vomiting episodes yesterday. None so far today Has been having diarrhea. Has had 2 episodes this AM per RN Reports abd fullness but no pain Denies any shortness of breath at rest. Reported some with activity sometimes. Denied any cough today Denied any chest pain, palpitations Denied chills. Noted to be febrile this AM at 38.5. One episode last night at 38.2 Denied any dysuria, freq, urgency at home Physical Exam Constitutional: + well hydrated; no acute distress Eyes: PERRL, conjunctivae normal, anicteric sclerae ENMT: external ear and nose normal, oropharynx normal Respiratory: normal respiratory effort, lungs clear to auscultation Cardiovascular: Rate/Rhythm: regular rate and regular rhythm S1 S2 Gastrointestinal (Abdomen): normal bowel sounds, soft, nontender, no hepatosplenomegaly Musculoskeletal: Mild pedal edema Neurologic: PERRL, EOMI, accommodation nl, no face palsy, no dysarthria Psychiatric: Limited insight. AOx2 Results & Data Results & Data ([facility]) Vital Signs (Past 12 Hours) Vital Signs Temp Pulse Resp BP Pulse Ox 05/02/22 11:36 36.7 C 78 18 115/68 96 05/02/22 07:39 38.5 C H 82 18 119/75 93 05/02/22 05:41 37.1 C 95 H 16 115/71 95 Laboratory Results Abnormal lab results 05/01/22 05/01/22 05/01/22 Range/Units 12:48 16:40 20:14 Sodium (136-145) mmol/L BUN (6-23) mg/dl Creatinine (0.6-1.4) mg/dl Glucose (70-99(Fasting)) mg/dl POC Glucose 143 H 209 H (70-99) mg/dl Calcium (8.5-10.1) mg/dl Stool Salmonella PCR DETECTED A* (NotDetected) 05/02/22 05/02/22 05/02/22 Range/Units 06:29 07:37 11:27 Sodium 133 L (136-145) mmol/L BUN 40 H (6-23) mg/dl Creatinine 2.02 H D (0.6-1.4) mg/dl Glucose 168 H (70-99(Fasting)) mg/dl POC Glucose 193 H 161 H (70-99) mg/dl Calcium 7.8 L (8.5-10.1) mg/dl Stool Salmonella PCR (NotDetected) (1) CHF (congestive heart failure) Heart failure chronicity: acute Heart failure type: diastolic Qualified Code(s): I50.31 - Acute diastolic (congestive) heart failure
[2022-05-02] MEDS ORDERED: DUPIXENT SC SCH (13:30)
--- NOTE | 2022-05-02 14:07 | XRay Report ---
KUB HISTORY: Nausea. Diarrhea. COMPARISON: Abdomen and pelvis CT 07/16/2020. FINDINGS: The bowel gas pattern is unremarkable. There are no dilated loops of small bowel to suggest an obstruction. No renal calculi. No ureteral calculi. No pneumoperitoneum or pneumatosis. There is a right total hip arthroplasty. IMPRESSION: No evidence for bowel destruction. ACT 112: Negative or not required by law. Electronically signed by: José Miguel Rock M.D. 05/02/2022 2:06 PM
[2022-05-02 15:36] LABS: BUN Creatinine Ratio 17.1 (10-20); Calcium 7.9 mg/dl (8.5-10.1); Creatinine Clr Calc Pharmacy 25.5 ml/min; Est GFR (African American) 28.2 ml/min; Est GFR (Non-African American) 24.3 ml/min; Potassium 3.7 mmol/L (3.5-5.1)
[2022-05-02] MEDS ORDERED: SODIUM CHLORIDE 0.9% 1000ML 1,000 ML IV SCH (16:15)
[2022-05-02] MEDS: TAMSULOSIN HCL 0.4 MG CAP PO SCH (20:40)
[2022-05-03] MEDS: CIPROFLOXACIN / D5W 400 MG/200 ML BAG IV SCH ×2 (05:45→17:02)
[2022-05-03 07:31] LABS: BUN Creatinine Ratio 19.4 (10-20); Calcium 7.6 mg/dl (8.5-10.1); Creatinine Clr Calc Pharmacy 30.4 ml/min; Est GFR (African American) 34.7 ml/min; Potassium 3.1 mmol/L (3.5-5.1)
[2022-05-03] MEDS ORDERED: POTASSIUM CHLORIDE CRTAB 20 MEQ TABCR PO STA (07:41)
[2022-05-03 08:29] LABS: Hemoglobin 10.2 g/dl (14.0-18.0); Mean Corpuscular Hemoglobin 32.9 pg (25.0-34.0); Mean Corpuscular Volume 96.8 fL (80.0-100.0); Mean Platelet Volume 9.8 fL (9.4-12.4); Platelet Count 111 K/uL (130-400); Platelet Estimate Normal (Normal); RDW Coefficient of Variation 13.3 % (11.5-14.5); RDW Standard Deviation 46.9 fL (36.4-46.3); White Blood Count 4.18 K/ul (4.8-10.8)
[2022-05-03] MEDS: METOPROLOL SUCC 25MG EXT REL TAB PO SCH (08:47)
[2022-05-03] MEDS: ESCITALOPRAM OXALATE 20 MG TAB PO SCH (08:47)
[2022-05-03] MEDS: FERROUS SULFATE 325 MG TAB PO SCH ×2 (08:47→20:33)
[2022-05-03] MEDS: cephALEXin 500 MG CAP PO SCH ×2 (08:47→20:33)
[2022-05-03] MEDS: AMANTADINE HCL 100 MG CAPSULE PO SCH (08:47)
[2022-05-03] MEDS: HEPARIN SOD 5,000 UNIT/0.5 ML VIAL SQ SCH ×2 (08:47→20:33)
[2022-05-03] MEDS: PANTOprazole 40 MG TAB PO SCH (08:47)
[2022-05-03] MEDS: MAGNESIUM OXIDE 400 MG TAB PO SCH (08:47)
[2022-05-03] MEDS: buPROPion XL 150 MG TABCR PO SCH (08:47)
[2022-05-03] MEDS: ATORVASTATIN 40 MG TAB PO SCH (08:47)
[2022-05-03] MEDS: ASPIRIN 81 MG ECTAB PO SCH (08:47)
[2022-05-03] MEDS: INSULIN ASPART PER UNIT SC SCH ×4 (08:49→20:31)
[2022-05-03] MEDS: LANTUS PER UNIT CHARGE SQ SCH ×2 (08:52→20:31)
--- NOTE | 2022-05-03 14:33 | Hospitalist Progress Note ---
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 His noted that he has had SOB, lightheadedness, and nausea x 1 week, and he has had worsening edema over this past week as well. Upon presentation, he was noted to have SaO2 of 88% improved to 95% on 2L/min nasal cannula Mild acute on chronic diastolic CHF Got IV lasix on admission CTA did not show any PE or acute lung disease Acute hypoxic respiratory failure improved 2 step show no oxygen requirement at rest and 2l/min with activity. Will need to repeat this at time of dc Cardiology eval and recommendations noted TTE showed EF 60-65%, mild conc LVH, mild AV sclerosis, mild AR, moderate posterior MV leaflet prolapse, mild to mod anterior MV prolapse, mild MR Card recommend no further aggressive diuresis. Patient to continue home meds including the lasix Patient to check daily weight at home and to take extra lasix if weight increases >2lb per card rec (5) Diarrhea: Plan: Diarrhea. C diff is negative Stool studies + for salmonella Has Salmonella enteritis Continue ciprofloxacin Last fever was 24h ago Lactate is 2 Blood cultures negative so far Patient is on chronic keflex for cellulitis prophylaxis per EPIC (6) Hypomagnesemia: Plan: Magnesium on admission 1.4. Got repleted on admission Mag is 2 yesterday Monitor (7) Primary parkinsonism: (8) Dementia associated with Parkinson's disease: Plan: Balance has been worse than usual. He uses a walker at home. Fall precautions PT evaluation noted. No rehab rec at this time (9) HTN (hypertension): Plan: Stable (10) CKD (chronic kidney disease) stage 3, GFR 30-59 ml/min: Plan: Has DORYS on CKD 3 Likely from GI losses with vomiting and diarrhea Continue to hold all diuretic including maxide Got some IVF yesterday. Off IVF Cr improving at 2.06 today. Monitor renal function as well as volume status (11) Diabetes type 2, controlled: Plan: Hold Metformin while inpatient. Sliding scale insulin (12) DVT prophylaxis: Plan: SQ Heparin Q12 Will need HH on dc Updated Admission and Anticipated Discharge Date Admission Date: May 02, 2022 Subjective Patient was seen and examined. Nausea and vomiting resolved Still reports abd fullness but no pain Had 3 BM yesterday per RN. 2 diarrhea so far today Denies any shortness of breath at rest. Reported some with activity sometimes. Denied any cough, chest pain, palpitations Denied chills. Last fever was yesterday morning Denied any dysuria, freq, urgency Physical Exam Constitutional: + well hydrated; no acute distress Eyes: PERRL, conjunctivae normal, anicteric sclerae ENMT: external ear and nose normal, oropharynx normal Respiratory: normal respiratory effort, lungs clear to auscultation Cardiovascular: Rate/Rhythm: regular rate and regular rhythm S1 S2 Gastrointestinal (Abdomen): normal bowel sounds, soft, nontender, no hepatosplenomegaly Musculoskeletal: Trace pedal edema Neurologic: PERRL, EOMI, accommodation nl, no face palsy, no dysarthria Psychiatric: Alert and oriented to person and place. Limited insight Results & Data Results & Data ([facility]) Vital Signs (Past 12 Hours) Vital Signs Temp Pulse Pulse Resp BP Pulse Ox 05/03/22 07:53 37.0 C 87 18 134/78 97 05/03/22 07:08 96 H 05/03/22 02:48 36.7 C 101 H 20 130/74 98 Laboratory Results Abnormal lab results 04/30/22 05/02/22 05/02/22 Range/Units 13:18 14:58 16:11 WBC (4.8-10.8) K/ul RBC (4.63-6.08) M/uL Hgb (14.0-18.0) g/dl Hct (40.1-51.0) % RDW Std Deviation (36.4-46.3) fL Plt Count (130-400) K/uL Sodium 130 L (136-145) mmol/L Potassium (3.5-5.1) mmol/L Chloride 96 L (98-107) mmol/L BUN 42 H (6-23) mg/dl Creatinine 2.45 H D (0.6-1.4) mg/dl Glucose 114 H (70-99(Fasting)) mg/dl POC Glucose 134 H (70-99) mg/dl Calcium 7.9 L (8.5-10.1) mg/dl Crossmatch See Detail 05/02/22 05/03/22 05/03/22 Range/Units 19:57 06:43 06:43 WBC 4.18 L (4.8-10.8) K/ul RBC 3.10 L (4.63-6.08) M/uL Hgb 10.2 L (14.0-18.0) g/dl Hct 30.0 L (40.1-51.0) % RDW Std Deviation 46.9 H (36.4-46.3) fL Plt Count 111 L (130-400) K/uL Sodium 131 L (136-145) mmol/L Potassium 3.1 L (3.5-5.1) mmol/L Chloride (98-107) mmol/L BUN 40 H (6-23) mg/dl Creatinine 2.06 H D (0.6-1.4) mg/dl Glucose 121 H (70-99(Fasting)) mg/dl POC Glucose 166 H (70-99) mg/dl Calcium 7.6 L (8.5-10.1) mg/dl Crossmatch 05/03/22 05/03/22 Range/Units 07:03 11:13 WBC (4.8-10.8) K/ul RBC (4.63-6.08) M/uL Hgb (14.0-18.0) g/dl Hct (40.1-51.0) % RDW Std Deviation (36.4-46.3) fL Plt Count (130-400) K/uL Sodium (136-145) mmol/L Potassium (3.5-5.1) mmol/L Chloride (98-107) mmol/L BUN (6-23) mg/dl Creatinine (0.6-1.4) mg/dl Glucose (70-99(Fasting)) mg/dl POC Glucose 145 H 140 H (70-99) mg/dl Calcium (8.5-10.1) mg/dl Crossmatch (1) CHF (congestive heart failure) Heart failure chronicity: acute Heart failure type: diastolic Qualified Code(s): I50.31 - Acute diastolic (congestive) heart failure
[2022-05-03 15:57] LABS: BUN Creatinine Ratio 19.1 (10-20); Calcium 7.9 mg/dl (8.5-10.1); Creatinine Clr Calc Pharmacy 29.1 ml/min; Est GFR (Non-African American) 28.4 ml/min; Potassium 3.5 mmol/L (3.5-5.1)
[2022-05-03] MEDS: TAMSULOSIN HCL 0.4 MG CAP PO SCH (20:33)
[2022-05-03] MEDS ORDERED: HEPARIN SODIUM/DEXTROSE 25,000 UNITS/500 ML BAG IV SCH (23:45)
[2022-05-03] MEDS ORDERED: METOPROLOL TARTRATE 1 MG/ML VIAL IV PRN (23:48)
[2022-05-03] MEDS ORDERED: Heparin IV Adult Wt-Based Low-Dose *NO* Bolus Protocol IV SCH (23:49)
[2022-05-04] MEDS: CIPROFLOXACIN / D5W 400 MG/200 ML BAG IV SCH (05:42)
[2022-05-04 07:47] LABS: Hematocrit (blood only) 31.2 % (40.1-51.0); Hemoglobin 10.7 g/dl (14.0-18.0); Mean Corpuscular Hgb Conc 34.3 g/dL (32.0-36.0); Mean Corpuscular Volume 93.4 fL (80.0-100.0); Mean Platelet Volume 9.6 fL (9.4-12.4); Platelet Count 122 K/uL (130-400); RDW Standard Deviation 44.7 fL (36.4-46.3); Red Blood Count 3.34 M/uL (4.63-6.08); White Blood Count 4.57 K/ul (4.8-10.8)
[2022-05-04 08:08] LABS: Partial Thromboplastin Ratio 2.3
[2022-05-04] MEDS: INSULIN ASPART PER UNIT SC SCH ×4 (08:15→20:42)
[2022-05-04] MEDS: cephALEXin 500 MG CAP PO SCH ×2 (08:22→21:29)
[2022-05-04] MEDS: LANTUS PER UNIT CHARGE SQ SCH ×2 (08:22→21:26)
[2022-05-04] MEDS: AMANTADINE HCL 100 MG CAPSULE PO SCH (08:22)
[2022-05-04] MEDS: MAGNESIUM OXIDE 400 MG TAB PO SCH (08:22)
[2022-05-04] MEDS: ESCITALOPRAM OXALATE 20 MG TAB PO SCH (08:22)
[2022-05-04] MEDS: METOPROLOL SUCC 25MG EXT REL TAB PO SCH (08:22)
[2022-05-04] MEDS: buPROPion XL 150 MG TABCR PO SCH (08:22)
[2022-05-04] MEDS: FERROUS SULFATE 325 MG TAB PO SCH ×2 (08:22→21:30)
[2022-05-04] MEDS: ASPIRIN 81 MG ECTAB PO SCH (08:22)
[2022-05-04] MEDS: PANTOprazole 40 MG TAB PO SCH (08:22)
[2022-05-04] MEDS: ATORVASTATIN 40 MG TAB PO SCH (08:22)
[2022-05-04 08:24] LABS: BUN Creatinine Ratio 20.2 (10-20); Calcium 8.2 mg/dl (8.5-10.1); Est GFR (African American) 37.6 ml/min; Est GFR (Non-African American) 32.4 ml/min; Magnesium 2.3 mg/dl (1.7-2.4); Phosphorus 2.9 mg/dl (2.5-4.9)
[2022-05-04 08:27] LABS: Partial Thromboplastin Time 62.1 Seconds (21.0-31.0)
[2022-05-04] MEDS ORDERED: POTASSIUM CHLORIDE CRTAB 20 MEQ TABCR PO STA ×2 (08:54→21:33)
[2022-05-04] MEDS ORDERED: POTASSIUM CHLORIDE 10 MEQ TABCR PO STA (08:54)
--- NOTE | 2022-05-04 10:28 | Cardiology Progress Note ---
Date of Service May 04, 2022 Assessment & Plan (1) Acute respiratory failure with hypoxia: (2) Coronary artery disease: (3) Moderate mitral regurgitation: Plan 1. Shortness of breath: His breathing appears to be at baseline. He is continued on his outpatient regimen of oral diuretics. 2. Coronary disease: He has a history of bypass surgery. No current symptoms suggestive of coronary insufficiency or ischemia. Biomarkers normal. He can continue secondary prevention with atorvastatin and aspirin. 3. mitral regurgitation: Mild on last examination 1 year ago. 4. Tachycardia: His EKG is not consistent with atrial fibrillation. I do not think he requires systemic anticoagulation in that regard. He does have a history of a wandering atrial pacemaker. I think his current rhythm is consistent with that prior diagnosis. He does have sinus beats interspersed with ectopic atrial beats. His rate is somewhat elevated. He is asymptomatic. There is a mention in his record of bradycardia in the past. However, no recent readings concerning for low heart rates. I think we can increase his metoprolol slightly for overall better rate control. Admission and Anticipated Discharge Date Admission Date: May 02, 2022 Subjective This morning patient x-ray claims to be feeling well. He is anxious for discharge. He did report several episodes of diarrhea yesterday and this was confirmed with a conversation with the nurse. He is unaware of any palpitations. He did not report ambulating yesterday. He did not describe symptoms of dizziness or lightheadedness. No current breathing difficulty. Review of Systems Review of Systems: Per HPI Physical Exam Physical Exam: The patient is alert and oriented. Mood and affect appeared normal. He answered all questions appropriately. HEENT: Pupils are equal and reactive to light and accommodation. Extraocular movements are intact. The sclerae are anicteric. Neuro: Cranial nerves intact Lungs: Normal respiratory effort Cardiac: Irregular rhythm. I peaking crescendo systolic murmur heard best at the apex. Pulses: The patient has palpable radial pulses bilaterally that are equal in intensity Extremities: There was no evidence of hypoperfusion. There is no cyanosis or clubbing. There is no edema. Skin: I did not appreciate any rashes on examination today. Results & Data ([facility]) Vital Signs (Past 12 Hours) Vital Signs Temp Pulse Pulse Resp BP Pulse Ox O2 Del Method 05/04/22 07:41 115 H 05/04/22 07:41 Room Air 05/04/22 07:16 36.5 C 105 H 18 153/74 H 90 Room Air 05/04/22 03:00 36.6 C 98 H 16 125/81 92 Room Air 05/04/22 00:53 122 H 05/03/22 22:43 36.8 C 108 H 16 144/76 H 93 Room Air Laboratory Results Abnormal Lab Results 05/03/22 05/03/22 05/03/22 11:13 15:06 16:33 WBC RBC Hgb Hct MCV MCH MCHC RDW Std Deviation RDW Coeff of Anny Plt Count MPV APTT PTT Ratio Sodium 130 L Potassium 3.5 Chloride 98 Carbon Dioxide 23 Anion Gap 9 BUN 41 H Creatinine 2.15 H Est Cr Clr Drug Dosing 29.1 Est GFR ( Amer) 33.0 Est GFR (Non-Af Amer) 28.4 BUN/Creatinine Ratio 19.1 Glucose 189 H POC Glucose 140 H 155 H Calcium 7.9 L Phosphorus Magnesium 05/03/22 05/04/22 05/04/22 20:16 07:08 07:19 WBC 4.57 L RBC 3.34 L Hgb 10.7 L Hct 31.2 L MCV 93.4 MCH 32.0 MCHC 34.3 RDW Std Deviation 44.7 RDW Coeff of Anny 13.0 Plt Count 122 L MPV 9.6 APTT PTT Ratio Sodium Potassium Chloride Carbon Dioxide Anion Gap BUN Creatinine Est Cr Clr Drug Dosing Est GFR ( Amer) Est GFR (Non-Af Amer) BUN/Creatinine Ratio Glucose POC Glucose 186 H 155 H Calcium Phosphorus Magnesium 05/04/22 05/04/22 07:19 07:19 WBC RBC Hgb Hct MCV MCH MCHC RDW Std Deviation RDW Coeff of Anny Plt Count MPV APTT 62.1 H* PTT Ratio 2.3 Sodium 133 L Potassium 3.0 L Chloride 100 Carbon Dioxide 26 Anion Gap 7 BUN 39 H Creatinine 1.93 H Est Cr Clr Drug Dosing 32.0 Est GFR ( Amer) 37.6 Est GFR (Non-Af Amer) 32.4 BUN/Creatinine Ratio 20.2 H Glucose 149 H POC Glucose Calcium 8.2 L Phosphorus 2.9 Magnesium 2.3 ECG Additional Comments: EKG obtained this morning reveals a sinus rhythm with frequent episodes of ectopic atrial tachycardia. PG Care Time/CCT Total # of Minutes Spent Total Time Spent with Patient: Total time spent is greater than 50% in coordination of care (as documented) at patient's floor/unit and/or counseling patient: Coding Level of Care Code 37402 Subseq Hosp Care Lvl 2 Diagnoses Acute respiratory failure with hypoxia J96.01 Coronary artery disease I25.10 Moderate mitral regurgitation I34.0
--- NOTE | 2022-05-04 11:26 | Electrocardiogram Report ---
Test Reason : Blood Pressure : / mmHG Vent. Rate : 112 BPM Atrial Rate : 125 BPM P-R Int : 000 ms QRS Dur : 100 ms QT Int : 304 ms P-R-T Axes : 000 -47 095 degrees QTc Int : 414 ms Sinus rhythm with frequent and consecutive atrial ectopy Left axis deviation Cannot rule out Anterior infarct (cited on or before 30-APR-2022) Abnormal ECG When compared with ECG of 30-APR-2022 13:33, Atrial arrhythmia is now present Confirmed by Jw Ward ([id number] on 05/04/2022 11:25:32 AM Referred By: REFERRED SELF Confirmed By:Eduar Ward
[2022-05-04] MEDS ORDERED: METOPROLOL TARTRATE 25 MG TAB PO ONE (14:00)
[2022-05-04] MEDS: CHOLESTYRAMINE LIGHT 4 GM PKT PO SCH ×2 (14:18→21:31)
[2022-05-04] MEDS: CIPROFLOXACIN 500 MG TAB PO SCH (21:29)
[2022-05-04] MEDS: TAMSULOSIN HCL 0.4 MG CAP PO SCH (21:30)
--- NOTE | 2022-05-04 21:40 | Hospitalist Progress Note ---
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 His noted that he has had SOB, lightheadedness, and nausea x 1 week, and he has had worsening edema over this past week as well. Upon presentation, he was noted to have SaO2 of 88% improved to 95% on 2L/min nasal cannula Mild acute on chronic diastolic CHF Got IV lasix on admission CTA did not show any PE or acute lung disease Acute hypoxic respiratory failure improved 2 step show no oxygen requirement at rest and 2l/min with activity. Will need to repeat this at time of dc Cardiology eval and recommendations noted TTE showed EF 60-65%, mild conc LVH, mild AV sclerosis, mild AR, moderate posterior MV leaflet prolapse, mild to mod anterior MV prolapse, mild MR Card recommend no further aggressive diuresis. Patient to continue home meds including the lasix Patient to check daily weight at home and to take extra lasix if weight increases >2lb per card rec (5) Diarrhea: Plan: Diarrhea. C diff is negative Stool studies + for salmonella Has Salmonella enteritis Continue ciprofloxacin Continue to have recurrent episode of watery diarrhea Will add cholestyramine to help with the diarrhea Monitor electrolytes Sepsis Febrile, tachycardia salmonella in stools cx He has been afebrile for about 48hrs Lactate is 2 Blood cultures negative so far Patient is on chronic keflex for cellulitis prophylaxis per EPIC Continue Cipro BID (6) Electrolyte imbalance: Plan: Mostly due to diarrhea Magnesium 1.4 on admission K 3 and mg 2.3 today K replaced Continue monitor electrolytes (7) Primary parkinsonism: (8) Dementia associated with Parkinson's disease: Plan: Balance has been worse than usual. He uses a walker at home. Fall precautions PT evaluation noted. No rehab rec at this time (9) HTN (hypertension): Plan: Stable (10) CKD (chronic kidney disease) stage 3, GFR 30-59 ml/min: Plan: Has DORYS on CKD 3 Likely from GI losses with vomiting and diarrhea Continue to hold all diuretic including maxide Received IVF Creatinine 1.9 today (11) Diabetes type 2, controlled: Plan: Hold Metformin while inpatient. Sliding scale insulin (12) DVT prophylaxis: Plan: SQ Heparin Q12 Disposition Will discharge once medically stable Admission and Anticipated Discharge Date Admission Date: May 02, 2022 Subjective Patient was seen and examined for follow-up of lower extremity edema and recurrent diarrhea Sitting in chair with no acute distress watching TV He continues to have recurrent episodes of diarrhea This morning monitor technician showed elevated heart rate Spoke to cardiology this morning that suggested the rhythm was not A. fib but more likely ectopic atrial beats He is very anxious to be discharged. Denies any chest pain, palpitation, dizziness, shortness of breath. Review of Systems Review of Systems: All systems reviewed & are unremarkable except as noted in Subjective Physical Exam Physical Exam: General- No acute distress Head- atraumatic Eyes- PERRL, EOMI, ENT- oropharynx clear Neck- supple, no JVD Lungs- clear to auscultation Heart- +murmur Abdomen- normal bowel sounds, soft, nontender Extremities- no calf tenderness Neuro- alert, oriented x 3; PERRL, EOMI; no facial palsy; no dysarthria Skin- warm & dry. Results & Data Results & Data ([facility]) Vital Signs (Past 12 Hours) Vital Signs Temp Pulse Pulse Resp BP Pulse Ox O2 Del Method 05/04/22 19:58 36.5 C 84 18 145/81 H 92 Room Air 05/04/22 16:41 72 05/04/22 15:57 36.4 C L 78 20 129/73 93 Room Air 05/04/22 11:59 36.4 C L 88 18 139/81 93 Room Air (1) CHF (congestive heart failure) Heart failure chronicity: acute Heart failure type: diastolic Qualified Code(s): I50.31 - Acute diastolic (congestive) heart failure
--- NOTE | 2022-05-05 01:46 | Urology Consultation ---
Date of Consultation May 05, 2022 Assessment & Plan (1) Hematuria: I discussed with the patient that he may require reinsertion of Michaud catheter. At the present time he wishes to not have a Michaud catheter placed. I discussed with the nursing staff that following the patient's next void to please BladderScan him and if it is greater than 200 cc to notify urology at which time consideration will be given to placing a Michaud catheter. Michaud catheter is placed we will then attempt to irrigate his bladder to evacuate any retained blood clots that may be present. Additional recommendations will be made based on his clinical course as it unfolds. Supervising Physician Co-Signing Physician Notes I have discussed Mr. Jose's case with Eric Lopez PA-C and agree with the above documentation. Unclear etiology of hematuria at this point, he will require hematuria work-up going forward. For now as long as he is emptying his bladder it is reasonable to continue monitoring. If he becomes unable to empty the bladder, would recommend placement of a large bore Michaud catheter (i.e. 20- 24 Polish) and performing hand irrigation to remove any clots. Urology will reassess. History of Present Illness Reason for Consultation: Hematuria Attending Physician: Lucy Alexander MD History of Present Illness This is a 77-year-old male who was admitted to [facility] on 04/30/2022. Patient was admitted secondary to shortness of breath attributed to some congestive heart failure. Patient was also found to have a wandering atrial pacemaker. During admission patient was also noted to have diarrhea but that was found to be negative for C. difficile but positive for Salmonella. He has been treated with ciprofloxacin secondary to this problem. Urology was consulted because patient previously had a Michaud catheter in place. The patient had some hematuria noted but his Michaud catheter is not draining. The Michaud catheter became removed during attempts to reposition it and I did discuss with the nurse at the bedside he noted that there was blood clot on the Michaud catheter. The patient has been able to void small amounts since his Michaud catheter has been removed but urology was consulted for hematuria. I did discuss with the nurses and the patient was previously on a heparin drip at low- dose but this has been discontinued. I visited with the patient at the bedside and he denies the feeling of bladder fullness. The nurses note that he has been voiding small amounts frequently. While I was at the bedside the patient was bladder scanned for approximately 200 cc in his bladder. He subsequently voided approximately 75 cc and was read bladder scan where he had under 200 cc of residual urine. Labs and imaging have been reviewed. Patient did have a KUB 3 days ago that showed no evidence of bowel obstruction. He also had a CT scan on 04/30/2022 that showed no evidence of PE. Most recent labs were from yesterday showing a white blood cell count of 4.5. Hemoglobin and hematocrit were 10.7 and 31.2. This hemoglobin and hematocrit level did not demonstrate a precipitous drop from previous values. His PTT was 62.1 however the patient was noted to be on a heparin drip at that time. Bobby profile showed sodium was 133 with a potassium of 3.0. His BUN and creatinine were 39 and 1.9. At the time of my interview he was resting comfortably in bed in no distress. Allergies Allergy/AdvReac Type Severity Reaction Status Date / Time YONATAN Inhibitors AdvReac Mild Cough Verified 03/03/22 08:55 Home Medications Medication Instructions Recorded Confirmed Type atorvastatin 40 mg tablet 40 mg PO QAM 09/02/18 04/30/22 History tamsulosin 0.4 mg capsule 0.4 mg PO HS #90 caps 12/11/19 04/30/22 Rx amantadine HCl 100 mg capsule 100 mg PO DAILY 05/22/20 04/30/22 History aspirin 81 mg tablet,delayed 81 mg PO QAM 02/02/21 04/30/22 History release (Negar Low Dose Aspirin) pantoprazole 40 mg tablet,delayed 40 mg PO QAM 02/02/21 04/30/22 History release donepezil 10 mg tablet 10 mg PO HS 05/11/21 04/30/22 History furosemide 40 mg tablet 40 mg PO 2XWK #30 tabs 05/11/21 04/30/22 Rx magnesium oxide 400 mg PO QAM 05/11/21 04/30/22 History melatonin 10 mg tablet 10 mg PO HS PRN Sleep 05/11/21 04/30/22 History triamterene 37.5 1 tab PO 5XWK 05/11/21 04/30/22 History mg-hydrochlorothiazide 25 mg tablet bupropion HCl 150 mg 24 hr tablet, 150 mg PO DAILY 06/17/21 04/30/22 History extended release cephalexin 500 mg capsule 500 mg PO BID 06/17/21 04/30/22 History fluocinonide 0.05 % topical 1 applic topical DAILY PRN after 06/17/21 04/30/22 History solution bathing metformin 500 mg tablet,extended 500 mg PO QAM 06/17/21 04/30/22 History release 24 hr ferrous sulfate 325 mg (65 mg 325 mg PO BID #60 tabs 06/19/21 04/30/22 Rx iron) tablet donepezil 5 mg tablet 5 mg PO DAILY Mornings 03/03/22 04/30/22 History dupilumab 300 mg/2 mL subcutaneous 300 mg subcut .every 2 weeks 03/03/22 04/30/22 History pen injector (Dupixent) escitalopram oxalate 20 mg tablet 20 mg PO QAM #90 tabs 03/29/22 04/30/22 Rx potassium chloride 20 mEq 20 meq PO 2XWK #30 tabs 04/15/22 04/30/22 Rx tablet,extended release metoprolol succinate 25 mg 25 mg PO QAM #90 tabs 04/19/22 04/30/22 Rx tablet,extended release 24 hr Patient History Medical History Adverse reaction to anesthetic agent Anxiety Arthritis BPH (benign prostatic hyperplasia) Carpal tunnel syndrome Cataracts, bilateral CHI (closed head injury) CKD (chronic kidney disease) stage 3, GFR 30-59 ml/min 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 Diabetes type 2, controlled Diabetic ulcer of right heel associated with diabetes mellitus due to underlying condition, with fat layer exposed Dyslipidemia Fall GERD (gastroesophageal reflux disease) HTN (hypertension) HTN (hypertension) Lumbar spondylosis Moderate mitral regurgitation Orthostatic hypotension (07/2019) Peripheral arterial disease Primary parkinsonism Seasonal allergies Sensorineural hearing loss (SNHL) of both ears Sepsis due to group B Streptococcus (2018) 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 Father Hypertension, Onset Age: 40 at 40 Mother Hypertension COPD (chronic obstructive pulmonary disease) Diabetes Brother Allergies Asthma Denies family history of Prostate cancer Hearing loss No family history of adverse response to anesthesia No family history of bleeding disorder Heart disease Cancer Stroke Social History Smoking Status: Never smoker Hx Alcohol Use: No Hx Substance Use: No Preferred Language: Estonian Communication Ability: Effective Communication Ability Comment: Hard of hearing Limited Radiology Technician Required: No Beliefs That Will Affect Care: None marital status: Current Living Situation: Spouse Current Living Situation Comment: Other Information That Helps Us Care for You: No Feels Safe at Home: Yes Assistive Devices: Walker Review of Systems Constitutional: no fever Respiratory: + dyspnea; no cough Gastrointestinal: + diarrhea/loose stools; no abdominal pain, no nausea and no vomiting Genitourinary: + as per Subjective / HPI Physical Exam Constitutional: WD/WN, vitals as above Eyes: no conjunctival abnormality Neck: trachea midline Respiratory: normal respiratory effort; no respiratory distress and no labored breathing Gastrointestinal (Abdomen): Soft, nontender Neurologic: moves all extremities Results & Data ([facility]) Vital Signs (Past 12 Hours) Vital Signs Temp Pulse Pulse Resp BP Pulse Ox O2 Del Method 05/04/22 23:15 36.5 C 89 18 145/79 H 92 Room Air 05/04/22 19:58 36.5 C 84 18 145/81 H 92 Room Air 05/04/22 16:41 72 05/04/22 15:57 36.4 C L 78 20 129/73 93 Room Air PG Care Time/CCT Total # of Minutes Spent Total Time Spent with Patient: Total time spent is greater than 50% in coordination of care (as documented) at patient's floor/unit and/or counseling patient: Coding Level of Care Code 27913 Inpt Consult Level 3 Diagnoses Hematuria R31.9
[2022-05-05] MEDS: CIPROFLOXACIN 500 MG TAB PO SCH ×2 (05:28→17:39)
[2022-05-05 07:29] LABS: Hematocrit (blood only) 31.3 % (40.1-51.0); Hemoglobin 10.5 g/dl (14.0-18.0); Mean Corpuscular Hemoglobin 32.2 pg (25.0-34.0); Mean Corpuscular Hgb Conc 33.5 g/dL (32.0-36.0); Mean Platelet Volume 9.4 fL (9.4-12.4); Platelet Count 131 K/uL (130-400); RDW Standard Deviation 45.6 fL (36.4-46.3); Red Blood Count 3.26 M/uL (4.63-6.08); White Blood Count 5.79 K/ul (4.8-10.8)
[2022-05-05 08:00] LABS: BUN Creatinine Ratio 20.2 (10-20); Calcium 8.1 mg/dl (8.5-10.1); Est GFR (African American) 40.1 ml/min; Est GFR (Non-African American) 34.6 ml/min; Potassium 3.5 mmol/L (3.5-5.1)
--- NOTE | 2022-05-05 08:28 | Urology Progress Note ---
Date of Service May 05, 2022 Assessment & Plan (1) Hematuria: Plan 77yo M admitted secondary to SOB, acute respiratory failure with hypoxia, CHF. Patient was noted to have hematuria in his Michaud catheter, which subsequently stopped draining and was removed during attempts to reposition the catheter. Urology consulted for hematuria. Patient is currently voiding spontaneously, still with hematuria per his report. Bladder scanned for PVR of 130 cc earlier this morning. Continue to monitor ability to void, bladder scan as needed. If he becomes unable to empty the bladder, would recommend placement of a large bore Michaud catheter (i.e. 20-24 [place]) and performing hand irrigation to remove any clots. Hematuria of unclear etiology. Recommend completing hematuria work-up as an outpatient with CT imaging and office cystoscopy. Pt is agreeable. We will arrange outpatient follow-up with our service. Urology will follow peripherally. Please contact us with any further questions, concerns, or changes in patient status. Admission and Anticipated Discharge Date Admission Date: May 02, 2022 Supervising Physician Co-Signing Physician Notes I have discussed Mr. Jose's case with HALLIE Koch and agree with the above documentation. He is still voiding well. We will not plan for any intervention at this point, but we will arrange outpatient follow-up with CT scan and cystoscopy. Subjective Pt examined at bedside this AM with Dr. Galeas. Awake, resting in bed on arrival. No acute distress. Reports he is voiding spontaneously. Still with hematuria. Prefers to avoid Michaud cath placement if possible. Per chart review, pt voided 150cc earlier this AM and was bladder scanned for a PVR of 130cc . Review of Systems Constitutional: as per Subjective / HPI Genitourinary: + as per Subjective / HPI Physical Exam Constitutional: no acute distress Respiratory: no respiratory distress and no labored breathing Neurologic: awake Psychiatric: Orientation: alert and oriented x 3 Results & Data ([facility]) Vital Signs (Past 12 Hours) Vital Signs Temp Pulse Pulse Resp BP Pulse Ox O2 Del Method 05/05/22 07:40 36.5 C 75 16 151/77 H 97 Room Air 05/05/22 03:18 36.3 C L 74 18 133/72 94 Room Air 05/05/22 02:17 81 05/04/22 23:15 36.5 C 89 18 145/79 H 92 Room Air PG Care Time/CCT Total # of Minutes Spent Total Time Spent with Patient: Total time spent is greater than 50% in coordination of care (as documented) at patient's floor/unit and/or counseling patient: Coding Level of Care Code None Diagnoses Hematuria R31.9
[2022-05-05] MEDS: FERROUS SULFATE 325 MG TAB PO SCH ×2 (08:34→20:43)
[2022-05-05] MEDS: buPROPion XL 150 MG TABCR PO SCH (08:34)
[2022-05-05] MEDS: PANTOprazole 40 MG TAB PO SCH (08:34)
[2022-05-05] MEDS: cephALEXin 500 MG CAP PO SCH ×2 (08:34→20:43)
[2022-05-05] MEDS: AMANTADINE HCL 100 MG CAPSULE PO SCH (08:34)
[2022-05-05] MEDS: ATORVASTATIN 40 MG TAB PO SCH (08:34)
[2022-05-05] MEDS: MAGNESIUM OXIDE 400 MG TAB PO SCH (08:34)
[2022-05-05] MEDS: METOPROLOL SUCC 25MG EXT REL TAB PO SCH (08:34)
[2022-05-05] MEDS: ASPIRIN 81 MG ECTAB PO SCH (08:34)
[2022-05-05] MEDS: LANTUS PER UNIT CHARGE SQ SCH ×2 (08:35→21:23)
[2022-05-05] MEDS: ESCITALOPRAM OXALATE 20 MG TAB PO SCH (08:35)
[2022-05-05] MEDS: INSULIN ASPART PER UNIT SC SCH ×4 (08:35→21:23)
--- NOTE | 2022-05-05 09:02 | Cardiology Progress Note ---
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 He had been on a regimen of Dyazide 5 days a week and furosemide 40 mg twice a week prior to admission but presented with mild volume overload. He does not appear to need aggressive diuresis, but his diuretic regimen could be increased to Dyazide every other day alternating with furosemide 40 mg every other day (with more frequent furosemide dosing for any abrupt weight gain). He has had an issue with bradycardia in the past and his heart rate is reasonable on metoprolol 25 mg daily, but given his recent tachycardia would consider increasing metoprolol to 25 mg twice daily (if his heart rate is greater than 90 bpm around the time of discharge). I will see him in the office within the next few weeks to reassess volume status and hemodynamics. Thank you for caring for this patient. Admission and Anticipated Discharge Date Admission Date: May 02, 2022 Subjective He feels well today, enjoying his breakfast with no nausea or vomiting. Denies any dyspnea, chest discomfort, or palpitations. Telemetry showed atrial fibrillation with atrial ectopy, rate 80-100 bpm. Physical Exam Physical Exam: Appears comfortable. Weight unreliable (range 176-194 pounds this admission) BP mildly hypertensive. Current pulse 80 bpm and regular with ectopy. Skin: no ecchymoses or generalized lesions. HEENT: unremarkable. Neck: Jugular venous pulse at the clavicle, no carotid bruits. Lungs: clear. Cardiac: regular rhythm with ectopy, 4/6 holosystolic murmur left sternal border rating to the axilla, no diastolic murmur. Abdomen: benign. Extremities: no edema, pulses intact. Neurologic: normal affect and conversation, nonfocal. Results & Data ([facility]) Vital Signs (Past 12 Hours) Vital Signs Temp Pulse Pulse Resp BP Pulse Ox O2 Del Method 05/05/22 07:40 97.7 F 75 16 151/77 H 97 Room Air 05/05/22 03:18 97.3 F L 74 18 133/72 94 Room Air 05/05/22 02:17 81 07/13/22 23:15 97.7 F 89 18 145/79 H 92 Room Air Laboratory Results Hemoglobin 10.5 with normal white count. Normal electrolytes including potassium 3.5, BUN 37, creatinine 1.83 (down from 1.93). 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
[2022-05-05] MEDS: CHOLESTYRAMINE LIGHT 4 GM PKT PO SCH ×2 (10:00→21:30)
--- NOTE | 2022-05-05 19:46 | Hospitalist Progress Note ---
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 His noted that he has had SOB, lightheadedness, and nausea x 1 week, and he has had worsening edema over this past week as well. Upon presentation, he was noted to have SaO2 of 88% improved to 95% on 2L/min nasal cannula Mild acute on chronic diastolic CHF Received IV lasix on admission CTA did not show any PE or acute lung disease Acute hypoxic respiratory failure improved 2 step show no oxygen requirement at rest and 2l/min with activity. Will need to repeat this at time of dc Cardiology eval and recommendations noted TTE showed EF 60-65%, mild conc LVH, mild AV sclerosis, mild AR, moderate posterior MV leaflet prolapse, mild to mod anterior MV prolapse, mild MR Card recommend no further aggressive diuresis. Cardiology recommended Dyazide every other day alternating with furosemide 40 mg every other day (with more frequent furosemide dosing for any abrupt weight gain more than 2 lbs ). (5) Diarrhea: Plan: Diarrhea. C diff is negative Stool studies + for salmonella Has Salmonella enteritis Continue ciprofloxacin Continue to have recurrent episode of watery diarrhea Continue cholestyramine to help with the diarrhea Monitor electrolytes Diarrhea improved Sepsis Febrile, tachycardia salmonella in stools cx He has been afebrile for about 48hrs Lactate is 2, normalized Blood cultures negative so far Patient is on chronic keflex for cellulitis prophylaxis per EPIC Continue Cipro BID (6) Electrolyte imbalance: Plan: Mostly due to diarrhea Magnesium 1.4 on admission Mg and K stable Continue monitor electrolytes (7) Primary parkinsonism: (8) Dementia associated with Parkinson's disease: Plan: Balance has been worse than usual. He uses a walker at home. Fall precautions PT/OT on board recommending inpatient rehab Family would like patient to go to ER, but not sure if patient will agree to go Fall precaution (9) HTN (hypertension): Plan: Stable (10) CKD (chronic kidney disease) stage 3, GFR 30-59 ml/min: Plan: Has DORYS on CKD 3 Likely from GI losses with vomiting and diarrhea Continue to hold all diuretic including maxide Received IVF Creatinine 1.8 today Continue monitor BMP (11) Diabetes type 2, controlled: Plan: Hold Metformin while inpatient. Sliding scale insulin Hematuria Possible related to trauma from the catheter Urology on board Pt does not want kee to be placed Follow up with urology for hematuria work-up as an outpatient with CT imaging and office cystoscopy. (12) DVT prophylaxis: Plan: SQ Heparin Q12 Disposition Possible discharge to rehab if agrees to go Admission and Anticipated Discharge Date Admission Date: May 02, 2022 Subjective Patient was seen and examined for follow-up of lower extremity edema and diarrhea Sitting in chair with no acute distress with , 2 daughters, granddaughter at bedside Nurse said that the rectal tube removed since his diarrhea seems to improve Pt is very anxious to go home today He was upset when i told him that he will not be discharged today therapy worked with him and required rehab and family would like him to go to rehab, but not sure if patient will agree to go last night he had hematuria from the kee cath. kee cath removed since pt did not want it to be placed Denies any chest pain, palpitation, dizziness, shortness of breath. Review of Systems Review of Systems: All systems reviewed & are unremarkable except as noted in Subjective Physical Exam Physical Exam: General- No acute distress Head- atraumatic Eyes- PERRL, EOMI, ENT- oropharynx clear Neck- supple, no JVD Lungs- clear to auscultation Heart- +murmur Abdomen- normal bowel sounds, soft, nontender Extremities- no calf tenderness Neuro- alert, oriented x 3; PERRL, EOMI; no facial palsy; no dysarthria Skin- warm & dry. Results & Data Results & Data ([facility]) Vital Signs (Past 12 Hours) Vital Signs Temp Pulse Pulse Resp BP Pulse Ox O2 Del Method 05/05/22 16:10 36.5 C 78 16 145/83 H 93 Room Air 05/05/22 14:13 82 05/05/22 14:13 Room Air, Nasal Cannula 05/05/22 10:47 36.6 C 87 19 136/67 95 Room Air (1) CHF (congestive heart failure) Heart failure chronicity: acute Heart failure type: diastolic Qualified Code(s): I50.31 - Acute diastolic (congestive) heart failure
[2022-05-05] MEDS: TAMSULOSIN HCL 0.4 MG CAP PO SCH (20:43)
[2022-05-06] MEDS: CIPROFLOXACIN 500 MG TAB PO SCH ×2 (06:06→18:29)
[2022-05-06 07:29] LABS: Hematocrit (blood only) 29.8 % (40.1-51.0); Hemoglobin 10.1 g/dl (14.0-18.0); Mean Corpuscular Hemoglobin 32.1 pg (25.0-34.0); Mean Corpuscular Hgb Conc 33.9 g/dL (32.0-36.0); Mean Corpuscular Volume 94.6 fL (80.0-100.0); Mean Platelet Volume 8.8 fL (9.4-12.4); Platelet Count 137 K/uL (130-400); RDW Coefficient of Variation 13.2 % (11.5-14.5); RDW Standard Deviation 45.6 fL (36.4-46.3); Red Blood Count 3.15 M/uL (4.63-6.08); White Blood Count 5.98 K/ul (4.8-10.8)
[2022-05-06 07:53] LABS: Calcium 8.1 mg/dl (8.5-10.1); Creatinine Clr Calc Pharmacy 36.1 ml/min; Est GFR (African American) 43.2 ml/min; Est GFR (Non-African American) 37.3 ml/min; Magnesium 2.2 mg/dl (1.7-2.4); Potassium 3.4 mmol/L (3.5-5.1)
[2022-05-06] MEDS: INSULIN ASPART PER UNIT SC SCH ×4 (08:11→20:45)
[2022-05-06] MEDS: MAGNESIUM OXIDE 400 MG TAB PO SCH (08:12)
[2022-05-06] MEDS: ESCITALOPRAM OXALATE 20 MG TAB PO SCH (08:12)
[2022-05-06] MEDS: ASPIRIN 81 MG ECTAB PO SCH (08:12)
[2022-05-06] MEDS: cephALEXin 500 MG CAP PO SCH ×2 (08:12→20:49)
[2022-05-06] MEDS: FERROUS SULFATE 325 MG TAB PO SCH ×2 (08:12→20:49)
[2022-05-06] MEDS: buPROPion XL 150 MG TABCR PO SCH (08:12)
[2022-05-06] MEDS: AMANTADINE HCL 100 MG CAPSULE PO SCH (08:12)
[2022-05-06] MEDS: ATORVASTATIN 40 MG TAB PO SCH (08:12)
[2022-05-06] MEDS: PANTOprazole 40 MG TAB PO SCH (08:14)
[2022-05-06] MEDS: LANTUS PER UNIT CHARGE SQ SCH ×2 (08:14→20:45)
[2022-05-06] MEDS: METOPROLOL SUCC 25MG EXT REL TAB PO SCH (08:17)
[2022-05-06] MEDS ORDERED: POTASSIUM CHLORIDE CRTAB 20 MEQ TABCR PO STA (08:42)
[2022-05-06] MEDS ORDERED: POTASSIUM CHLORIDE 10 MEQ TABCR PO STA (08:42)
--- NOTE | 2022-05-06 09:16 | Urology Progress Note ---
Date of Service May 06, 2022 Assessment & Plan (1) Hematuria: Plan: Hematuria seems to have cleared at this point. Based on prior imaging he seems to have a large prostate which is likely the cause of his hematuria. However, we will still plan to perform hematuria work-up as an outpatient. Urology will arrange office visit for cystoscopy with CT urogram. Urology sign off for now. Please contact us with any questions or concerns. Admission and Anticipated Discharge Date Admission Date: May 02, 2022 Subjective Feeling well this morning Hematuria has improved and urine is now largely clear, he denies any more clots. He denies any pain with urinating and he feels like he is emptying well. Physical Exam Physical Exam: Well-appearing, NAD Results & Data ([facility]) Vital Signs (Past 12 Hours) Vital Signs Temp Pulse Pulse Resp BP BP Pulse Ox 05/06/22 08:29 36.2 C L 92 H 18 157/88 H 94 05/06/22 02:18 37.0 C 85 18 153/79 H 94 05/05/22 23:42 36.7 C 114 H 18 144/83 H 95 05/05/22 22:57 112 H O2 Del Method 05/06/22 08:29 Room Air 05/06/22 02:18 Room Air 05/05/22 23:42 Room Air 05/05/22 22:57 PG Care Time/CCT Total # of Minutes Spent Total Time Spent with Patient: Total time spent is greater than 50% in coordination of care (as documented) at patient's floor/unit and/or counseling patient: Coding Level of Care Code 86780 Subseq Hosp Care Lvl 1 Diagnoses Hematuria R31.9
[2022-05-06] MEDS: CHOLESTYRAMINE LIGHT 4 GM PKT PO SCH ×2 (10:21→21:16)
[2022-05-06 11:04] LABS: A calco-baum cmplx NotReported Not Detected (NotDetected); Bact fragilis Not Reported Not Detected (NotDetected); C auris Not Reported Not Detected (NotDetected); CTX-M Resistant Gene Not Detected (NotDetected); Calbicans Not Reported Not Detected (NotDetected); Candida glabrata Not Reported Not Detected (NotDetected); Candida krusei Not Reported Not Detected (NotDetected); Cneoformans/gatti Not Reported Not Detected (NotDetected); Cparapsilosis Not Reported Not Detected (NotDetected); Ctropicalis Not Reported Not Detected (NotDetected); E cloacae compx Not Reported Not Detected (NotDetected); Efaecalis Not Reported Not Detected (NotDetected); Efaecium Not Reported Not Detected (NotDetected); Enterobacterales DETECTED (NotDetected); Enterobacterales Not Reported DETECTED (NotDetected); Escherichia coli Not Reported Not Detected (NotDetected); H influenzae Not Reported Not Detected (NotDetected); IMP Resistant Gene Not Detected (NotDetected); K aerogenes Not Reported Not Detected (NotDetected); KPC Resistant Gene Not Detected (NotDetected); Koxytoca Not Reported Not Detected (NotDetected); Kpneumoniae grp Not Reported Not Detected (NotDetected); Lmonocyt Not Reported Not Detected (NotDetected); N meningitidis Not Reported Not Detected (NotDetected); NDM Resistant Gene Not Detected (NotDetected); OXA 48 Like Resistant Gene Not Detected (NotDetected); P aeruginosa Not Reported Not Detected (NotDetected); Proteus spp Not Reported Not Detected (NotDetected); Salmonella spp Not Reported DETECTED (NotDetected); Smarcescens Not Reported Not Detected (NotDetected); Staph lugdunensis Not Reported Not Detected (NotDetected); Staph spp. Not Reported Not Detected (NotDetected); Staphaureus Not Reported Not Detected (NotDetected); Staphepi Not Reported Not Detected (NotDetected); Stenmaltophilia Not Reported Not Detected (NotDetected); Strep agal(GrpB) Not Reported Not Detected (NotDetected); Strep pneum Not Reported Not Detected (NotDetected); Strep pyog (GrpA) Not Reported Not Detected (NotDetected); Strep spp Not Reported Not Detected (NotDetected); VIM Resistant Gene Not Detected (NotDetected); mcr-1 Colistin Resistant Gene Not Detected (NotDetected)
[2022-05-06 11:13] LABS: Salmonella species DETECTED (NotDetected)
[2022-05-06] MEDS: TAMSULOSIN HCL 0.4 MG CAP PO SCH (20:49)
--- NOTE | 2022-05-06 22:04 | Hospitalist Progress Note ---
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 His noted that he has had SOB, lightheadedness, and nausea x 1 week, and he has had worsening edema over this past week as well. Upon presentation, he was noted to have SaO2 of 88% improved to 95% on 2L/min nasal cannula Mild acute on chronic diastolic CHF Received IV lasix on admission CTA did not show any PE or acute lung disease Acute hypoxic respiratory failure improved 2 step show no oxygen requirement at rest and 2l/min with activity. Will need to repeat this at time of dc Cardiology eval and recommendations noted TTE showed EF 60-65%, mild conc LVH, mild AV sclerosis, mild AR, moderate posterior MV leaflet prolapse, mild to mod anterior MV prolapse, mild MR Card recommend no further aggressive diuresis. Cardiology recommended Dyazide every other day alternating with furosemide 40 mg every other day (with more frequent furosemide dosing for any abrupt weight gain more than 2 lbs ). (5) Diarrhea: Plan: Diarrhea. C diff is negative Stool studies + for salmonella Has Salmonella enteritis Continue ciprofloxacin Continue to have recurrent episode of watery diarrhea Continue cholestyramine to help with the diarrhea Monitor electrolytes Diarrhea improved Bacteremia Sepsis Blood culture positive for gram-negative bacilli-Salmonella Febrile, tachycardia salmonella in stools cx He has been afebrile for about 72hrs Lactate is 2, normalized Patient is on chronic keflex for cellulitis prophylaxis per EPIC Continue Cipro BID ECHO done on 05/01 did not suggest any vegetation ID consult for duration of abx therapy (6) Electrolyte imbalance: Plan: Mostly due to diarrhea Magnesium 1.4 on admission Mg 2.2 today and K 3.4 today K replaced Continue monitor electrolytes (7) Primary parkinsonism: (8) Dementia associated with Parkinson's disease: Plan: Balance has been worse than usual. He uses a walker at home. Fall precautions PT/OT on board recommending inpatient rehab Family would like patient to go to ER, but not sure if patient will agree to go Fall precaution (9) HTN (hypertension): Plan: Stable (10) CKD (chronic kidney disease) stage 3, GFR 30-59 ml/min: Plan: Has DORYS on CKD 3 Likely from GI losses with vomiting and diarrhea Continue to hold all diuretic including maxide Received IVF Creatinine 1.7 today Continue monitor BMP (11) Diabetes type 2, controlled: Plan: Hold Metformin while inpatient. Sliding scale insulin Hematuria Possible related to trauma from the catheter Urology on board Pt does not want kee to be placed Follow up with urology for hematuria work-up as an outpatient with CT imaging and office cystoscopy. (12) DVT prophylaxis: Plan: SQ Heparin Q12 Disposition Plan to discharge to rehab once medically stable Admission and Anticipated Discharge Date Admission Date: May 02, 2022 Subjective Patient was seen and examined for follow-up of lower extremity edema and diarrhea Sitting in chair with no acute distress Patient said diarrhea has been improved He is not too happy because he is staying in the hospital for the weekend due to the positive blood culture with Salmonella Spoke to at bedside and provided with update and answer all of her questio ns Denies any chest pain, palpitation, dizziness, shortness of breath. Review of Systems Review of Systems: All systems reviewed & are unremarkable except as noted in Subjective Physical Exam Physical Exam: General- No acute distress Head- atraumatic Eyes- PERRL, EOMI, ENT- oropharynx clear Neck- supple, no JVD Lungs- clear to auscultation Heart- +murmur Abdomen- normal bowel sounds, soft, nontender Extremities- no calf tenderness Neuro- alert, oriented x 3; PERRL, EOMI; no facial palsy; no dysarthria Skin- warm & dry. Results & Data Results & Data ([facility]) Vital Signs (Past 12 Hours) Vital Signs Temp Pulse Resp BP BP Pulse Ox O2 Del Method 05/06/22 20:02 36.6 C 84 18 132/76 93 Room Air 05/06/22 15:35 36.4 C L 79 18 130/73 97 Room Air 05/06/22 11:56 36.6 C 89 19 143/82 H 95 Room Air (1) CHF (congestive heart failure) Heart failure chronicity: acute Heart failure type: diastolic Qualified Code(s): I50.31 - Acute diastolic (congestive) heart failure
[2022-05-07] MEDS: CIPROFLOXACIN 500 MG TAB PO SCH ×2 (06:36→18:07)
[2022-05-07 07:56] LABS: BUN Creatinine Ratio 17.6 (10-20); Calcium 8.3 mg/dl (8.5-10.1); Creatinine Clr Calc Pharmacy 39.1 ml/min; Est GFR (African American) 47.5 ml/min; Potassium 3.5 mmol/L (3.5-5.1)
[2022-05-07] MEDS: ASPIRIN 81 MG ECTAB PO SCH (08:09)
[2022-05-07] MEDS: AMANTADINE HCL 100 MG CAPSULE PO SCH (08:09)
[2022-05-07] MEDS: ATORVASTATIN 40 MG TAB PO SCH (08:09)
[2022-05-07] MEDS: cephALEXin 500 MG CAP PO SCH ×2 (08:10→20:31)
[2022-05-07] MEDS: MAGNESIUM OXIDE 400 MG TAB PO SCH (08:10)
[2022-05-07] MEDS: FERROUS SULFATE 325 MG TAB PO SCH ×2 (08:10→20:30)
[2022-05-07] MEDS: buPROPion XL 150 MG TABCR PO SCH (08:10)
[2022-05-07] MEDS: ESCITALOPRAM OXALATE 20 MG TAB PO SCH (08:10)
[2022-05-07] MEDS: METOPROLOL SUCC 25MG EXT REL TAB PO SCH (08:10)
[2022-05-07] MEDS: PANTOprazole 40 MG TAB PO SCH (08:11)
[2022-05-07] MEDS: INSULIN ASPART PER UNIT SC SCH ×4 (09:02→20:15)
[2022-05-07] MEDS: LANTUS PER UNIT CHARGE SQ SCH ×2 (09:03→20:15)
[2022-05-07] MEDS: CHOLESTYRAMINE LIGHT 4 GM PKT PO SCH ×2 (11:02→22:21)
--- NOTE | 2022-05-07 19:55 | Hospitalist Progress Note ---
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 His noted that he has had SOB, lightheadedness, and nausea x 1 week, and he has had worsening edema over this past week as well. Upon presentation, he was noted to have SaO2 of 88% improved to 95% on 2L/min nasal cannula Mild acute on chronic diastolic CHF Received IV lasix on admission CTA did not show any PE or acute lung disease Acute hypoxic respiratory failure improved 2 step show no oxygen requirement at rest and 2l/min with activity. Will need to repeat this at time of dc Cardiology eval and recommendations noted TTE showed EF 60-65%, mild conc LVH, mild AV sclerosis, mild AR, moderate posterior MV leaflet prolapse, mild to mod anterior MV prolapse, mild MR Card recommend no further aggressive diuresis. Cardiology recommended Dyazide every other day alternating with furosemide 40 mg every other day (with more frequent furosemide dosing for any abrupt weight gain more than 2 lbs ). (5) Diarrhea: Plan: Diarrhea. C diff is negative Stool studies + for salmonella Has Salmonella enteritis Continue ciprofloxacin Continue to have recurrent episode of watery diarrhea Continue cholestyramine to help with the diarrhea Monitor electrolytes Clinically improved significantly Bacteremia Sepsis Blood culture positive for gram-negative bacilli-Salmonella Febrile, tachycardia salmonella in stools cx He has been afebrile for about 72hrs Lactate is 2, normalized Patient is on chronic keflex for cellulitis prophylaxis per EPIC Continue Cipro BID Repeat blood cx showed no growth ECHO done on 05/01 did not suggest any vegetation ID consult for duration of abx therapy (6) Electrolyte imbalance: Plan: Mostly due to diarrhea Magnesium 1.4 on admission Mg 2.2 and K 3.5 Continue monitor electrolytes (7) Primary parkinsonism: (8) Dementia associated with Parkinson's disease: Plan: Balance has been worse than usual. He uses a walker at home. Fall precautions PT/OT on board recommending inpatient rehab Family would like patient to go to rehab, but pt would like to do therapy outpatient Fall precaution (9) HTN (hypertension): Plan: Stable (10) CKD (chronic kidney disease) stage 3, GFR 30-59 ml/min: Plan: Has DORYS on CKD 3 Likely from GI losses with vomiting and diarrhea Continue to hold all diuretic Creatinine 1.5 today Continue monitor BMP (11) Diabetes type 2, controlled: Plan: Hold Metformin while inpatient. Sliding scale insulin Hematuria Possible related to trauma from the catheter Urology on board Pt does not want kee to be placed Follow up with urology for hematuria work-up as an outpatient with CT imaging and office cystoscopy. (12) DVT prophylaxis: Plan: SQ Heparin Q12 Disposition Plan to discharge to rehab once medically stable Admission and Anticipated Discharge Date Admission Date: May 02, 2022 Subjective Patient was seen and examined for follow-up for bacteremia, lower extremity edema and diarrhea Sitting in bed with no acute distress Patient said diarrhea has been better Spoke to daughter at bedside and provided with update and answer all of her questions Denies any chest pain, palpitation, dizziness, shortness of breath. Review of Systems Review of Systems: All systems reviewed & are unremarkable except as noted in Subjective Physical Exam Physical Exam: General- No acute distress Head- atraumatic Eyes- PERRL, EOMI, ENT- oropharynx clear Neck- supple, no JVD Lungs- clear to auscultation Heart- +murmur Abdomen- normal bowel sounds, soft, nontender Extremities- no calf tenderness, +trace edema Neuro- alert, oriented x 3; PERRL, EOMI; no facial palsy; no dysarthria Skin- warm & dry. Results & Data Results & Data ([facility]) Vital Signs (Past 12 Hours) Vital Signs Temp Pulse Pulse Resp BP BP Pulse Ox 05/07/22 15:25 78 05/07/22 15:17 36.8 C 69 19 119/73 96 05/07/22 12:12 74 05/07/22 12:08 05/07/22 11:54 36.6 C 76 18 145/77 H 96 O2 Del Method 05/07/22 15:25 05/07/22 15:17 Room Air 05/07/22 12:12 05/07/22 12:08 Room Air 05/07/22 11:54 Room Air (1) CHF (congestive heart failure) Heart failure chronicity: acute Heart failure type: diastolic Qualified Code(s): I50.31 - Acute diastolic (congestive) heart failure
[2022-05-07] MEDS: TAMSULOSIN HCL 0.4 MG CAP PO SCH (20:31)
[2022-05-08] MEDS: CIPROFLOXACIN 500 MG TAB PO SCH ×2 (06:14→17:25)
[2022-05-08 07:05] LABS: BUN Creatinine Ratio 16.9 (10-20); Calcium 8.2 mg/dl (8.5-10.1); Creatinine Clr Calc Pharmacy 38.5 ml/min; Est GFR (African American) 51.8 ml/min; Est GFR (Non-African American) 44.7 ml/min; Potassium 3.9 mmol/L (3.5-5.1)
[2022-05-08] MEDS: AMANTADINE HCL 100 MG CAPSULE PO SCH (08:04)
[2022-05-08] MEDS: buPROPion XL 150 MG TABCR PO SCH (08:05)
[2022-05-08] MEDS: ATORVASTATIN 40 MG TAB PO SCH (08:05)
[2022-05-08] MEDS: cephALEXin 500 MG CAP PO SCH ×2 (08:05→21:14)
[2022-05-08] MEDS: ASPIRIN 81 MG ECTAB PO SCH (08:05)
[2022-05-08] MEDS: MAGNESIUM OXIDE 400 MG TAB PO SCH (08:06)
[2022-05-08] MEDS: FERROUS SULFATE 325 MG TAB PO SCH ×2 (08:06→21:13)
[2022-05-08] MEDS: ESCITALOPRAM OXALATE 20 MG TAB PO SCH (08:06)
[2022-05-08] MEDS: METOPROLOL SUCC 25MG EXT REL TAB PO SCH ×2 (08:07→09:43)
[2022-05-08] MEDS: PANTOprazole 40 MG TAB PO SCH (08:07)
[2022-05-08] MEDS: INSULIN ASPART PER UNIT SC SCH ×4 (08:29→21:03)
[2022-05-08] MEDS: LANTUS PER UNIT CHARGE SQ SCH ×2 (08:30→21:04)
[2022-05-08] MEDS: CHOLESTYRAMINE LIGHT 4 GM PKT PO SCH ×2 (09:44→21:13)
--- NOTE | 2022-05-08 16:32 | Hospitalist Progress Note ---
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 His noted that he has had SOB, lightheadedness, and nausea x 1 week, and he has had worsening edema over this past week as well. Upon presentation, he was noted to have SaO2 of 88% improved to 95% on 2L/min nasal cannula Mild acute on chronic diastolic CHF Received IV lasix on admission CTA did not show any PE or acute lung disease Acute hypoxic respiratory failure improved 2 step show no oxygen requirement at rest and 2l/min with activity. Will need to repeat this at time of dc Cardiology eval and recommendations noted TTE showed EF 60-65%, mild conc LVH, mild AV sclerosis, mild AR, moderate posterior MV leaflet prolapse, mild to mod anterior MV prolapse, mild MR Card recommend no further aggressive diuresis. Cardiology recommended Dyazide every other day alternating with furosemide 40 mg every other day (with more frequent furosemide dosing for any abrupt weight gain more than 2 lbs ). (5) Diarrhea: Plan: Diarrhea. C diff is negative Stool studies + for salmonella Has Salmonella enteritis Continue ciprofloxacin Continue to have recurrent episode of watery diarrhea Continue cholestyramine to help with the diarrhea Monitor electrolytes Clinically improved significantly Bacteremia Sepsis Blood culture positive for gram-negative bacilli-Salmonella Febrile, tachycardia salmonella in stools cx He has been afebrile for the last few days Patient is on chronic keflex for cellulitis prophylaxis per EPIC Continue Cipro BID Repeat blood cx showed no growth ECHO done on 05/01 did not suggest any vegetation ID consult for duration of abx therapy (6) Electrolyte imbalance: Plan: Mostly due to diarrhea Magnesium 1.4 on admission Mg 2.2 and K 3.5 Continue monitor electrolytes (7) Primary parkinsonism: (8) Dementia associated with Parkinson's disease: Plan: Balance has been worse than usual. He uses a walker at home. Fall precautions PT/OT on board recommending inpatient rehab Family would like patient to go to rehab, but pt would like to do therapy outpatient Fall precaution (9) HTN (hypertension): Plan: Stable (10) CKD (chronic kidney disease) stage 3, GFR 30-59 ml/min: Plan: Has DORYS on CKD 3 Likely from GI losses with vomiting and diarrhea Continue to hold all diuretic Creatinine 1.4 today Continue monitor BMP (11) Diabetes type 2, controlled: Plan: Hold Metformin while inpatient. Sliding scale insulin Hematuria Possible related to trauma from the catheter Urology on board Pt does not want kee to be placed Follow up with urology for hematuria work-up as an outpatient with CT imaging and office cystoscopy. resolved (12) DVT prophylaxis: Plan: SQ Heparin discontinued due to hematuria Disposition Plan to discharge to rehab once medically stable Admission and Anticipated Discharge Date Admission Date: May 02, 2022 Subjective Patient was seen and examined for follow-up for bacteremia, lower extremity edema and diarrhea Sitting in bed with no acute distress Pt said that he feels ok Pt said that he spoke to about to do therapy outpatient because the thought of stay at rehab scaring him Denies any chest pain, palpitation, dizziness, shortness of breath. Review of Systems Review of Systems: All systems reviewed & are unremarkable except as noted in Subjective Physical Exam Physical Exam: General- No acute distress Head- atraumatic Eyes- PERRL, EOMI, ENT- oropharynx clear Neck- supple, no JVD Lungs- clear to auscultation Heart- +murmur Abdomen- normal bowel sounds, soft, nontender Extremities- no calf tenderness, +trace edema Neuro- alert, oriented x 3; PERRL, EOMI; no facial palsy; no dysarthria Skin- warm & dry. Results & Data Results & Data ([facility]) Vital Signs (Past 12 Hours) Vital Signs Temp Pulse Pulse Resp BP Pulse Ox O2 Del Method 05/08/22 16:18 36.6 C 80 16 128/70 97 Room Air 05/08/22 15:19 70 05/08/22 11:45 36.4 C L 77 16 143/77 H 97 Room Air 05/08/22 08:00 69 05/08/22 10:15 Room Air 05/08/22 07:46 36.7 C 73 18 134/68 95 Room Air (1) CHF (congestive heart failure) Heart failure chronicity: acute Heart failure type: diastolic Qualified Co de(s): I50.31 - Acute diastolic (congestive) heart failure
[2022-05-08] MEDS: TAMSULOSIN HCL 0.4 MG CAP PO SCH (21:14)
[2022-05-09] MEDS: CIPROFLOXACIN 500 MG TAB PO SCH ×2 (06:15→17:01)
[2022-05-09 07:55] LABS: BUN Creatinine Ratio 15.1 (10-20); Calcium 8.2 mg/dl (8.5-10.1); Creatinine Clr Calc Pharmacy 42.3 ml/min; Est GFR (African American) 52.6 ml/min; Est GFR (Non-African American) 45.4 ml/min; Potassium 4.4 mmol/L (3.5-5.1)
[2022-05-09] MEDS: FERROUS SULFATE 325 MG TAB PO SCH ×2 (08:09→20:11)
[2022-05-09] MEDS: MAGNESIUM OXIDE 400 MG TAB PO SCH (08:09)
[2022-05-09] MEDS: PANTOprazole 40 MG TAB PO SCH (08:09)
[2022-05-09] MEDS: buPROPion XL 150 MG TABCR PO SCH (08:09)
[2022-05-09] MEDS: AMANTADINE HCL 100 MG CAPSULE PO SCH (08:09)
[2022-05-09] MEDS: ASPIRIN 81 MG ECTAB PO SCH (08:09)
[2022-05-09] MEDS: METOPROLOL SUCC 25MG EXT REL TAB PO SCH (08:10)
[2022-05-09] MEDS: ATORVASTATIN 40 MG TAB PO SCH (08:10)
[2022-05-09] MEDS: LANTUS PER UNIT CHARGE SQ SCH ×2 (08:10→20:38)
[2022-05-09] MEDS: ESCITALOPRAM OXALATE 20 MG TAB PO SCH (08:10)
[2022-05-09] MEDS: cephALEXin 500 MG CAP PO SCH ×2 (08:10→20:12)
[2022-05-09] MEDS: INSULIN ASPART PER UNIT SC SCH ×4 (08:10→20:12)
[2022-05-09] MEDS: CHOLESTYRAMINE LIGHT 4 GM PKT PO SCH ×2 (11:11→21:58)
[2022-05-09] MEDS: FUROSEMIDE 40 MG TAB PO SCH (12:06)
--- NOTE | 2022-05-09 14:25 | Hospitalist Progress Note ---
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 His noted that he has had SOB, lightheadedness, and nausea x 1 week, and he has had worsening edema over this past week as well. Upon presentation, he was noted to have SaO2 of 88% improved to 95% on 2L/min nasal cannula Mild acute on chronic diastolic CHF Received IV lasix on admission CTA did not show any PE or acute lung disease Acute hypoxic respiratory failure improved 2 step show no oxygen requirement at rest and 2l/min with activity. Will need to repeat this at time of dc Cardiology eval and recommendations noted TTE showed EF 60-65%, mild conc LVH, mild AV sclerosis, mild AR, moderate posterior MV leaflet prolapse, mild to mod anterior MV prolapse, mild MR Card recommend no further aggressive diuresis. Cardiology recommended Dyazide every other day alternating with furosemide 40 mg every other day (with more frequent furosemide dosing for any abrupt weight gain more than 2 lbs ). Lasix 40mg PO resume today to be given on Mon/Mon/monday Dyazide will start on Monday to be scheduled 4xtimes weekly ( Mon, Sat, sun) (5) Diarrhea: Plan: Diarrhea. C diff is negative Stool studies + for salmonella Has Salmonella enteritis Continue ciprofloxacin Continue to have recurrent episode of watery diarrhea Continue cholestyramine to help with the diarrhea Monitor electrolytes Clinically improved significantly Bacteremia Sepsis Blood culture positive for gram-negative bacilli-Salmonella Febrile, tachycardia salmonella in stools cx He has been afebrile for the last few days Patient is on chronic keflex for cellulitis prophylaxis per EPIC Continue Cipro BID Repeat blood cx showed no growth ECHO done on 05/01 did not suggest any vegetation ID consult for duration of abx therapy- pending for today (6) Electrolyte imbalance: Plan: Mostly due to diarrhea Magnesium 1.4 on admission Mg 2.2 and K 3.5 Continue monitor electrolytes (7) Primary parkinsonism: (8) Dementia associated with Parkinson's disease: Plan: Balance has been worse than usual. He uses a walker at home. Fall precautions PT/OT on board recommending inpatient rehab Family would like patient to go to rehab, but pt would like to do therapy outp atient Fall precaution (9) HTN (hypertension): Plan: Stable (10) CKD (chronic kidney disease) stage 3, GFR 30-59 ml/min: Plan: Has DORYS on CKD 3 Likely from GI losses with vomiting and diarrhea Continue to hold all diuretic Creatinine 1.4 today Continue monitor BMP (11) Diabetes type 2, controlled: Plan: Hold Metformin while inpatient. Sliding scale insulin Hematuria Possible related to trauma from the catheter Urology on board Pt does not want kee to be placed Follow up with urology for hematuria work-up as an outpatient with CT imaging and office cystoscopy. resolved (12) DVT prophylaxis: Plan: SQ Heparin discontinued due to hematuria Disposition Plan to discharge to rehab once bed available Admission and Anticipated Discharge Date Admission Date: May 02, 2022 Subjective Patient was seen and examined for follow-up for bacteremia, lower extremity edema and diarrhea Sitting in bed with no acute distress Pt said that he feels ok He is very anxious to go home, but family wants him to go to rehab Denies any chest pain, palpitation, dizziness, shortness of breath. Review of Systems Review of Systems: All systems reviewed & are unremarkable except as noted in Subjective Physical Exam Physical Exam: General- No acute distress Head- atraumatic Eyes- PERRL, EOMI, ENT- oropharynx clear Neck- supple, no JVD Lungs- clear to auscultation Heart- +murmur Abdomen- normal bowel sounds, soft, nontender Extremities- no calf tenderness, +trace edema Neuro- alert, oriented x 3; PERRL, EOMI; no facial palsy; no dysarthria Skin- warm & dry. Results & Data Results & Data ([facility]) Vital Signs (Past 12 Hours) Vital Signs Temp Pulse Pulse Resp BP BP Pulse Ox 05/09/22 08:00 05/09/22 11:23 36.6 C 68 18 118/71 97 05/09/22 08:00 81 05/09/22 07:48 36.9 C 80 18 120/66 97 05/09/22 03:45 36.4 C L 66 18 131/71 97 O2 Del Method 05/09/22 08:00 Room Air 05/09/22 11:23 Room Air 05/09/22 08:00 05/09/22 07:48 Room Air 05/09/22 03:45 Room Air (1) CHF (congestive heart failure) Heart failure chronicity: acute Heart failure type: diastolic Qualified Code (s): I50.31 - Acute diastolic (congestive) heart failure
[2022-05-09 18:34] LABS: Hemoglobin 10.1 g/dl (14.0-18.0)
[2022-05-09] MEDS ORDERED: LIDOCAINE 2% JELLY 5 ML TUBE ONE (18:40)
[2022-05-09] MEDS: TAMSULOSIN HCL 0.4 MG CAP PO SCH (20:11)
[2022-05-10] MEDS: CIPROFLOXACIN 500 MG TAB PO SCH ×2 (05:06→17:57)
[2022-05-10] MEDS: ATORVASTATIN 40 MG TAB PO SCH (07:59)
[2022-05-10] MEDS: buPROPion XL 150 MG TABCR PO SCH (07:59)
[2022-05-10] MEDS: PANTOprazole 40 MG TAB PO SCH (07:59)
[2022-05-10] MEDS: ESCITALOPRAM OXALATE 20 MG TAB PO SCH (07:59)
[2022-05-10 08:00] LABS: BUN Creatinine Ratio 15.7 (10-20); Calcium 8.1 mg/dl (8.5-10.1); Creatinine Clr Calc Pharmacy 39.2 ml/min; Est GFR (African American) 47.5 ml/min; Potassium 4.1 mmol/L (3.5-5.1)
[2022-05-10] MEDS: FERROUS SULFATE 325 MG TAB PO SCH ×2 (08:00→20:36)
[2022-05-10] MEDS: AMANTADINE HCL 100 MG CAPSULE PO SCH (08:00)
[2022-05-10] MEDS: MAGNESIUM OXIDE 400 MG TAB PO SCH (08:00)
[2022-05-10] MEDS: cephALEXin 500 MG CAP PO SCH ×2 (08:00→20:36)
[2022-05-10] MEDS: METOPROLOL SUCC 25MG EXT REL TAB PO SCH (08:01)
[2022-05-10] MEDS: LANTUS PER UNIT CHARGE SQ SCH ×2 (08:02→20:42)
[2022-05-10] MEDS: INSULIN ASPART PER UNIT SC SCH ×4 (08:04→20:42)
[2022-05-10] MEDS: CHOLESTYRAMINE LIGHT 4 GM PKT PO SCH ×2 (10:33→20:37)
--- NOTE | 2022-05-10 14:30 | Urology Progress Note ---
Date of Service May 10, 2022 Assessment & Plan (1) Hematuria: Plan - Patient had an episode of hematuria last night with some blood coming out of his penis. - Nursing placed a 16Fr coude catheter. - Hematuria seems to have cleared at this point. - Michaud catheter intact, currently draining clear yellow urine. - He is afebrile, hemodynamically stable. - Labs reviewed- Creatinine 1.59, Hemoglobin 10.1. - Given his urine remains clear, ok to attempt voiding trial in AM prior to his discharge. - Will plan to perform hematuria work-up as an outpatient. Urology will arrange office visit for cystoscopy with CT urogram. - Urology will sign-off for now. Please contact us with any questions or concerns. Admission and Anticipated Discharge Date Admission Date: May 02, 2022 Subjective Pt examined at bedside this AM. Awake, sitting in bedside chair on arrival. Patient had an episode of hematuria last night. A 16 Stateless coud catheter was placed by nursing. Catheter is currently draining clear yellow urine. Denies any pain or discomfort at present. No fevers. Eager to go home. Review of Systems Constitutional: as per Subjective / HPI Genitourinary: + as per Subjective / HPI Physical Exam 2 Constitutional: no acute distress Respiratory: no respiratory distress and no labored breathing Gastrointestinal (Abdomen): Inspection/Auscultation: abdomen normal to inspection Skin: No visible rashes or lesions to exposed skin areas Neurologic: moves all extremities and awake Psychiatric: Orientation: alert, oriented x 3 and cooperative Genitourinary: Michaud catheter intact, draining clear yellow urine Results & Data ([facility]) Vital Signs (Past 12 Hours) Vital Signs Temp Pulse Pulse Resp BP Pulse Ox O2 Del Method 05/10/22 11:22 36.6 C 83 20 114/75 96 Room Air 05/10/22 09:41 72 05/10/22 09:01 Room Air 05/10/22 08:02 36.8 C 75 18 137/72 95 Room Air 05/10/22 07:39 36.6 C 75 20 153/77 H 94 Room Air 05/10/22 03:54 36.4 C L 73 18 139/78 95 Room Air PG Care Time/CCT Total # of Minutes Spent Total Time Spent with Patient: Total time spent is greater than 50% in coordination of care (as documented) at patient's floor/unit and/or counseling patient: Coding Level of Care Code 20776 Subseq Hosp Care Lvl 2 Diagnoses Hematuria R31.9
--- NOTE | 2022-05-10 16:10 | Hospitalist Progress Note ---
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 His noted that he has had SOB, lightheadedness, and nausea x 1 week, and he has had worsening edema over this past week as well. Upon presentation, he was noted to have SaO2 of 88% improved to 95% on 2L/min nasal cannula Mild acute on chronic diastolic CHF Received IV lasix on admission CTA did not show any PE or acute lung disease Acute hypoxic respiratory failure improved 2 step show no oxygen requirement at rest and 2l/min with activity. Will need to repeat this at time of dc Cardiology eval and recommendations noted TTE showed EF 60-65%, mild conc LVH, mild AV sclerosis, mild AR, moderate posterior MV leaflet prolapse, mild to mod anterior MV prolapse, mild MR Card recommend no further aggressive diuresis. Cardiology recommended Dyazide every other day alternating with furosemide 40 mg every other day (with more frequent furosemide dosing for any abrupt weight gain more than 2 lbs ). Lasix 40mg PO resume today to be given on Mon/Mon/monday Dyazide will start on Monday to be scheduled 4xtimes weekly ( Mon, Sat, sun) (5) Diarrhea: Plan: Diarrhea. C diff is negative Stool studies + for salmonella Has Salmonella enteritis Continue ciprofloxacin Continue to have recurrent episode of watery diarrhea Continue cholestyramine to help with the diarrhea Monitor electrolytes Clinically improved significantly Bacteremia Sepsis Blood culture positive for gram-negative bacilli-Salmonella Febrile, tachycardia salmonella in stools cx He has been afebrile for the last few days Patient is on chronic keflex for cellulitis prophylaxis per EPIC Continue Cipro BID Repeat blood cx showed no growth ECHO done on 05/01 did not suggest any vegetation ID consult for duration of abx therapy- pending for today (6) Electrolyte imbalance: Plan: Mostly due to diarrhea Magnesium 1.4 on admission Mg 2.2 and K 3.5 replete and monitor (7) Primary parkinsonism: (8) Dementia associated with Parkinson's disease: Plan: Balance has been worse than usual. He uses a walker at home. Fall precautions PT/OT on board recommending inpatient rehab Family would like patient to go to rehab, but pt would like to do therapy outpatient Fall precaution (9) HTN (hypertension): Plan: Stable (10) CKD (chronic kidney disease) stage 3, GFR 30-59 ml/min: Plan: Has DORYS on CKD 3 Likely from GI losses with vomiting and diarrhea Continue to hold triamterin (pt received some IVF previously) Creatinine 1.4 today improved, Continue monitor BMP (11) Diabetes type 2, controlled: Plan: Hold Metformin while inpatient. Sliding scale insulin Hematuria Possible related to trauma from the catheter Urology consulted Follow up with urology for hematuria work-up as an outpatient with CT imaging and office cystoscopy. resolved (12) DVT prophylaxis: Plan: SQ Heparin discontinued due to hematuria Disposition Plan to discharge home w/ HH Admission and Anticipated Discharge Date Admission Date: May 02, 2022 Subjective Patient was seen and examined for follow-up for bacteremia, lower extremity edema and diarrhea Sitting in chair in no acute distress Feeling well, patient's is at the bedside and updated Denies any fevers, chills, chest pain, palpitation, dizziness, shortness of breath. Due to hematuria, Michaud was placed, and urology consulted again ID consult pending Review of Systems Review of Systems: All systems reviewed & are unremarkable except as noted in Subjective Physical Exam Physical Exam: General- No acute distress Head- at raumatic Eyes- PER RL, EOMI, ENT- hector pharynx clear Neck - supple, no JVD L ungs- clear to aus cultation Heart- + murmur Abdomen- no rmal bowel sounds, soft, nontender G U -Michaud catheter placed, drains caitie ar yellow urine Ex tremities- no suma f tenderness, +tra ce edema Neuro- al ert, oriented x 3; PERRL, EOMI; no f acial palsy; no dy sarthria, moves ex tremities Skin- wa rm & dry. Results & Data Results & Data ([facility]) Vital Signs (Past 12 Hours) Vital Signs Temp Pulse Pulse Resp BP Pulse Ox O2 Del Method 05/10/22 15:29 36.3 C L 72 18 122/77 95 Room Air 05/10/22 14:56 87 05/10/22 11:22 36.6 C 83 20 114/75 96 Room Air 05/10/22 09:41 72 05/10/22 09:01 Room Air 05/10/22 08:02 36.8 C 75 18 137/72 95 Room Air 05/10/22 07:39 36.6 C 75 20 153/77 H 94 Room Air Laboratory Results 05/10/22 05/10/22 05/10/22 Range/Units 10:53 07:19 07:03 Hgb (14.0-18.0) g/dl Hct (40.1-51.0) % Sodium 138 (136-145) mmol/L Potassium 4.1 (3.5-5.1) mmol/L Chloride 109 H (98-107) mmol/L Carbon Dioxide 24 (21-32) mmol/L Anion Gap 5 (3-11) BUN 25 H (6-23) mg/dl Creatinine 1.59 H (0.6-1.4) mg/dl Est Cr Clr Drug Dosing 39.2 ml/min Est GFR ( Amer) 47.5 ml/min Est GFR (Non-Af Amer) 41.0 ml/min BUN/Creatinine Ratio 15.7 (10-20) Glucose 97 (70-99(Fasting)) mg/dl POC Glucose 170 H 108 H (70-99) mg/dl Calcium 8.1 L (8.5-10.1) mg/dl 05/09/22 05/09/22 05/09/22 Range/Units 20:10 18:15 16:06 Hgb 10.1 L (14.0-18.0) g/dl Hct 31.0 L (40.1-51.0) % Sodium (136-145) mmol/L Potassium (3.5-5.1) mmol/L Chloride (98-107) mmol/L Carbon Dioxide (21-32) mmol/L Anion Gap (3-11) BUN (6-23) mg/dl Creatinine (0.6-1.4) mg/dl Est Cr Clr Drug Dosing ml/min Est GFR ( Amer) ml/min Est GFR (Non-Af Amer) ml/min BUN/Creatinine Ratio (10-20) Glucose (70-99(Fasting)) mg/dl POC Glucose 138 H 111 H (70-99) mg/dl Calcium (8.5-10.1) mg/dl Medications Administered Current Inpatient Medications Acetaminophen (Acetaminophen 325 Mg Tab) 650 mg PO Q4H PRN PRN Reason: Pain or Fever Stop: 05/30/22 17:53 Last Admin: 05/02/22 08:37 Dose: 650 mg Albuterol (Albuterol 0.083% Nebu Soln 3 Ml Vial) 2.5 mg NEB Q6R PRN; Protocol PRN Reason: wheezing, shortness of breath Stop: 05/31/22 16:14 Last Admin: 05/01/22 16:48 Dose: 2.5 mg Amantadine HCl (Amantadine Hcl 100 Mg Capsule) 100 mg PO DAILY [facility] Stop: 05/31/22 08:59 Last Admin: 05/10/22 08:00 Dose: 100 mg Aspirin (Aspirin 81 Mg Ectab) [facility] Stop: 05/31/22 08:59 Last Admin: 05/09/22 08:09 Dose: 81 mg Atorvastatin Calcium (Atorvastatin 40 Mg Tab) [facility] [place] Stop: 05/31/22 08:59 Last Admin: 05/10/22 07:59 Dose: 40 mg Bupropion HCl (Bupropion Xl 150 Mg Tabcr) 150 mg PO DAILY [facility] Stop: 05/31/22 08:59 Last Admin: 05/10/22 07:59 Dose: 150 mg Cephalexin HCl (Cephalexin 500 Mg Cap) 500 mg PO BID [facility] Stop: 05/30/22 20:59 Last Admin: 05/10/22 08:00 Dose: 500 mg Cholestyramine Resin (Cholestyramine Light 4 Gm Pkt) 4 gm PO BID@1000,2200 [facility] Stop: 06/03/22 12:29 Last Admin: 05/10/22 10:33 Dose: 4 gm Ciprofloxacin (Ciprofloxacin 500 Mg Tab) 500 mg PO Q12H JEANETH; Protocol Stop: 05/15/22 17:59 Last Admin: 05/10/22 05:06 Dose: 500 mg Dextrose (Dextrose 50% 50 Ml Syringe) 25 - 50 ml IV UD PRN; Protocol PRN Reason: Hypoglycemia Protocol Stop: 05/30/22 17:53 Donepezil HCl (Donepezil Hcl 10 Mg Tab) 10 mg PO HS [facility] Stop: 05/30/22 20:59 Last Admin: 04/30/22 20:01 Dose: 10 mg Escitalopram Oxalate (Escitalopram Oxalate 20 Mg Tab) 20 mg PO QAM [facility] Stop: 05/31/22 08:59 Last Admin: 05/10/22 07:59 Dose: 20 mg Ferrous Sulfate (Ferrous Sulfate 325 Mg Tab) 325 mg PO BID [facility] Stop: 05/30/22 20:59 Last Admin: 05/10/22 08:00 Dose: 325 mg Furosemide (Furosemide 40 Mg Tab) 40 mg PO MoWeFr JEANETH Stop: 06/08/22 10:44 Last Admin: 05/09/22 12:06 Dose: 40 mg Glucagon (Glucagon For Inj 1 Mg Vial) 1 mg SQ UD PRN; Protocol PRN Reason: Hypoglycemia Protocol Stop: 05/30/22 17:53 Glucose (Glucose 10 Tabs/Tube) 4 - 8 tab PO UD PRN; Protocol PRN Reason: Hypoglycemia Protocol Stop: 05/30/22 17:53 Glucose (Glucose 40% Gel 15 Gm Tube) 15 - 30 gm PO UD PRN; Protocol PRN Reason: Hypoglycemia Protocol Stop: 05/30/22 17:53 Insulin Aspart (Insulin Aspart Per Unit) 0 units SC ACHS [facility] Stop: 05/30/22 22:59 Last Admin: 05/10/22 13:02 Dose: 3 units Insulin Glargine (Lantus Per Unit Charge) 10 units SQ BID JEANETH Stop: 05/30/22 20:59 Last Admin: 05/10/22 08:02 Dose: Not Given Magnesium Oxide (Magnesium Oxide 400 Mg Tab) 400 mg PO QAM [facility] Stop: 05/31/22 08:59 Last Admin: 05/10/22 08:00 Dose: 400 mg Metoprolol Succinate (Metoprolol Succ 25mg Ext Rel Tab) 25 mg PO QAM [facility] Stop: 05/31/22 08:59 Last Admin: 05/10/22 08:01 Dose: 25 mg Metoprolol Tartrate (Metoprolol Tartrate 1 Mg/Ml Vial) 2.5 mg IV Q4H PRN PRN Reason: Tachycardia Stop: 06/02/22 23:47 Miscellaneous (Carbohydrates For Hypoglycemia ) 15 - 30 gm PO UD PRN PRN Reason: Hypoglycemia Protocol Stop: 05/30/22 17:53 Dupixent: Non- Formulary Patient's Own Med 1 each SC Q14D [facility] Stop: 06/01/22 13:59 Last Admin: 05/02/22 14:10 Dose: 300 mg Ondansetron HCl (Ondansetron Inj 2 Mg/Ml 2 Ml Vial) 4 mg IV Q6H PRN PRN Reason: Nausea And Vomiting Stop: 05/31/22 18:32 Last Admin: 05/01/22 18:40 Dose: 4 mg Pantoprazole Sodium (Pantoprazole 40 Mg Tab) 40 mg PO QAM [facility] Stop: 05/31/22 08:59 Last Admin: 05/10/22 07:59 Dose: 40 mg Tamsulosin HCl (Tamsulosin Hcl 0.4 Mg Cap) 0.4 mg PO HS [facility] Stop: 05/30/22 20:59 Last Admin: 05/09/22 20:11 Dose: 0.4 mg Triamterene/Hydrochlorothiazide (Triamterene/Hctz 37.5/25mg Tab) 1 tab PO DAILY [facility] Stop: 05/31/22 08:59 Last Admin: 05/01/22 08:57 Dose: 1 tab (1) CHF (congestive heart failure) Heart failure chronicity: acute Heart failure type: diastolic Qualified Code(s): I50.31 - Acute diastolic (congestive) heart failure
[2022-05-10] MEDS: ADVANCED PROBIOTIC 1250 MG CAPSULE PO SCH (18:33)
[2022-05-10] MEDS: TAMSULOSIN HCL 0.4 MG CAP PO SCH (20:36)
[2022-05-11] MEDS: CIPROFLOXACIN 500 MG TAB PO SCH ×2 (05:34→17:43)
[2022-05-11] MEDS: INSULIN ASPART PER UNIT SC SCH ×4 (08:13→20:24)
[2022-05-11] MEDS: FERROUS SULFATE 325 MG TAB PO SCH ×2 (08:14→20:17)
[2022-05-11] MEDS: ESCITALOPRAM OXALATE 20 MG TAB PO SCH (08:14)
[2022-05-11] MEDS: METOPROLOL SUCC 25MG EXT REL TAB PO SCH (08:14)
[2022-05-11] MEDS: cephALEXin 500 MG CAP PO SCH ×2 (08:14→20:17)
[2022-05-11] MEDS: ATORVASTATIN 40 MG TAB PO SCH (08:14)
[2022-05-11] MEDS: PANTOprazole 40 MG TAB PO SCH (08:15)
[2022-05-11] MEDS: AMANTADINE HCL 100 MG CAPSULE PO SCH (08:15)
[2022-05-11] MEDS: buPROPion XL 150 MG TABCR PO SCH (08:15)
[2022-05-11] MEDS: ADVANCED PROBIOTIC 1250 MG CAPSULE PO SCH (08:15)
[2022-05-11] MEDS: MAGNESIUM OXIDE 400 MG TAB PO SCH (08:15)
[2022-05-11] MEDS: LANTUS PER UNIT CHARGE SQ SCH ×2 (08:17→20:57)
[2022-05-11] MEDS: FUROSEMIDE 40 MG TAB PO SCH (08:18)
[2022-05-11] MEDS: CHOLESTYRAMINE LIGHT 4 GM PKT PO SCH ×2 (10:08→21:57)
[2022-05-11 11:22] LABS: Hematocrit (blood only) 30.3 % (40.1-51.0); Hemoglobin 9.9 g/dl (14.0-18.0); Mean Corpuscular Hemoglobin 32.4 pg (25.0-34.0); Mean Corpuscular Hgb Conc 32.7 g/dL (32.0-36.0); Mean Platelet Volume 8.6 fL (9.4-12.4); Platelet Count 170 K/uL (130-400); RDW Coefficient of Variation 14.1 % (11.5-14.5); RDW Standard Deviation 49.9 fL (36.4-46.3); Red Blood Count 3.06 M/uL (4.63-6.08); White Blood Count 10.17 K/ul (4.8-10.8)
--- NOTE | 2022-05-11 11:32 | Hospitalist Progress Note ---
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 His noted that he has had SOB, lightheadedness, and nausea x 1 week, and he has had worsening edema over this past week as well. Upon presentation, he was noted to have SaO2 of 88% improved to 95% on 2L/min nasal cannula Mild acute on chronic diastolic CHF Received IV lasix on admission CTA did not show any PE or acute lung disease Acute hypoxic respiratory failure improved 2 step show no oxygen requirement at rest and 2l/min with activity. Will need to repeat this at time of dc Cardiology eval and recommendations noted TTE showed EF 60-65%, mild conc LVH, mild AV sclerosis, mild AR, moderate posterior MV leaflet prolapse, mild to mod anterior MV prolapse, mild MR Card recommend no further aggressive diuresis. Cardiology recommended Dyazide every other day alternating with furosemide 40 mg every other day (with more frequent furosemide dosing for any abrupt weight gain more than 2 lbs ). Lasix 40mg PO resumed to be given on Mon/Mon/monday Dyazide to start on Monday to be scheduled 4xtimes weekly ( Mon, Sat, mon) Because of DORYS,dyazide has been on hold. Cr improved. No significant edema noted. Pt breathing on room air. Plan to DC on home regimen unchanged w/ follow up BMP and outpt providers (5) Diarrhea: Plan: Diarrhea. C diff is negative Stool studies + for salmonella Has Salmonella enteritis Continue ciprofloxacin Continue to have recurrent episode of watery diarrhea Continue cholestyramine to help with the diarrhea Monitor electrolytes Clinically improved significantly Bacteremia Sepsis Blood culture (05/02/22) positive for gram-negative bacilli-Salmonella Febrile, tachycardia salmonella in stools cx He has been afebrile for past several days Patient is on chronic keflex for cellulitis prophylaxis per EPIC Continue Cipro BID Repeat blood cx showed no growth ECHO done on 05/01 did not suggest any vegetation ID consult for duration of abx therapy- pending for today (6) Electrolyte imbalance: Plan: Mostly due to diarrhea Magnesium 1.4 on admission replete and monitor (7) Primary parkinsonism: (8) Dementia associated with Parkinson's disease: Plan: Balance has been worse than usual. He uses a walker at home. Fall precautions PT/OT on board recommending inpatient rehab Family would like patient to go to rehab, but pt would like to do therapy outpatient Fall precaution Discussed with family, plan to discharge home with home health (9) HTN (hypertension): Plan: Stable (10) CKD (chronic kidney disease) stage 3, GFR 30-59 ml/min: Plan: Has DORYS on CKD 3 Likely from GI losses with vomiting and diarrhea Continue to hold triamterin (pt received some IVF previously as Cr was 2.45) Creatinine 1.4 today improved, Continue monitor BMP (11) Diabetes type 2, controlled: Plan: Hold Metformin while inpatient. Sliding scale insulin Hematuria Possible related to trauma from the catheter Urology consulted Follow up with urology for hematuria work-up as an outpatient with CT imaging and office cystoscopy. resolved (12) DVT prophylaxis: Plan: SQ Heparin discontinued due to hematuria Disposition Plan to discharge home w/ HH Admission and Anticipated Discharge Date Admission Date: May 02, 2022 Subjective Patient was seen and examined for follow-up for bacteremia, lower extremity edema and diarrhea Sitting in chair in no acute distress Feeling well, patient's is at the bedside and updated Denies any fevers, chills, chest pain, palpitation, dizziness, shortness of breath. Due to hematuria, Michaud was placed, and urology consulted again Today Michaud catheter was removed, and patient has been voiding so difficulty. No more hematuria noted. ID consult pending Discussed with family, plan to discharge home with home health. Review of Systems Review of Systems: All systems reviewed & are unremarkable except as noted in Subjective Physical Exam Physical Exam: General- No acute distress Head- at raumatic Eyes- PER RL, EOMI, ENT- hector pharynx clear Neck - supple, no JVD L ungs- clear to aus cultation Heart- + murmur Abdomen- no rmal bowel sounds, soft, nontender G U -Michaud catheter placed, drains caitie ar yellow urine Ex tremities- no suma f tenderness, +tra ce edema Neuro- al ert, oriented x 3; PERRL, EOMI; no f acial palsy; no dy sarthria, moves ex tremities Skin- wa rm & dry. Results & Data Results & Data ([facility]) Vital Signs (Past 12 Hours) Vital Signs Temp Pulse Resp BP BP Pulse Ox O2 Del Method 05/11/22 07:45 Room Air 05/11/22 07:39 36.6 C 79 18 128/79 94 Room Air 05/11/22 03:30 36.6 C 76 18 135/78 94 Room Air (1) CHF (congestive heart failure) Heart failure chronicity: acute Heart failure type: diastolic Qualified Code(s): I50.31 - Acute diastolic (congestive) heart failure
[2022-05-11 11:55] LABS: BUN Creatinine Ratio 17.5 (10-20); Calcium 8.5 mg/dl (8.5-10.1); Creatinine Clr Calc Pharmacy 43.5 ml/min; Est GFR (Non-African American) 46.6 ml/min; Phosphorus 3.4 mg/dl (2.5-4.9); Potassium 4.4 mmol/L (3.5-5.1)
[2022-05-11] MEDS: TAMSULOSIN HCL 0.4 MG CAP PO SCH (20:17)
[2022-05-12] MEDS: CIPROFLOXACIN 500 MG TAB PO SCH (06:07)
[2022-05-12] MEDS: INSULIN ASPART PER UNIT SC SCH ×2 (08:08→12:34)
[2022-05-12 08:14] LABS: BUN Creatinine Ratio 17.3 (10-20); Calcium 8.1 mg/dl (8.5-10.1); Creatinine Clr Calc Pharmacy 44.7 ml/min; Est GFR (African American) 55.9 ml/min; Est GFR (Non-African American) 48.2 ml/min; Potassium 3.9 mmol/L (3.5-5.1)
--- NOTE | 2022-05-12 09:06 | Hospitalist Progress Note ---
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 His noted that he has had SOB, lightheadedness, and nausea x 1 week, and he has had worsening edema over this past week as well. Upon presentation, he was noted to have SaO2 of 88% improved to 95% on 2L/min nasal cannula Mild acute on chronic diastolic CHF Received IV lasix on admission CTA did not show any PE or acute lung disease Acute hypoxic respiratory failure improved 2 step show no oxygen requirement at rest and 2l/min with activity. Will need to repeat this at time of dc Cardiology eval and recommendations noted TTE showed EF 60-65%, mild conc LVH, mild AV sclerosis, mild AR, moderate posterior MV leaflet prolapse, mild to mod anterior MV prolapse, mild MR Card recommend no further aggressive diuresis. Cardiology recommended Dyazide every other day alternating with furosemide 40 mg every other day (with more frequent furosemide dosing for any abrupt weight gain more than 2 lbs ). Lasix 40mg PO resumed to be given on Mon/Mon/monday Dyazide to start on Monday to be scheduled 4xtimes weekly ( Monu, Celestino, hector) Update: Because of DORYS,dyazide has been on hold. Cr improved. No edema. Pt breathing on room air. Two-step study obtained/repeated on 05/12, no need for oxygen Plan to DC on home regimen unchanged w/ follow up BMP and outpt providers (5) Diarrhea: Plan: Diarrhea. C diff is negative Stool studies + for salmonella Has Salmonella enteritis Continue ciprofloxacin Continue to have recurrent episode of watery diarrhea Continue cholestyramine to help with the diarrhea Monitor electrolytes Clinically improved significantly Bacteremia Sepsis Blood culture (05/02/22) positive for gram-negative bacilli-Salmonella Febrile, tachycardia salmonella in stools cx He has been afebrile for past several days Patient is on chronic keflex for cellulitis prophylaxis per EPIC Continue Cipro BID Repeat blood cx showed no growth ECHO done on 05/01 did not suggest any vegetation ID consulted -no more need for antibiotics, usually would treat with 8-day course, which patient has finished (6) Electrolyte imbalance: Plan: Mostly due to diarrhea Magnesium 1.4 on admission replete and monitor (7) Primary parkinsonism: (8) Dementia associated with Parkinson's disease: Plan: Balance has been worse than usual. He uses a walker at home. Fall precautions PT/OT on board recommending inpatient rehab Family would like patient to go to rehab, but pt would like to do therapy outpatient Fall precaution Discussed with family, plan to discharge home with home health (9) HTN (hypertension): Plan: Stable (10) CKD (chronic kidney disease) stage 3, GFR 30-59 ml/min: Plan: Has DORYS on CKD 3 Likely from GI losses with vomiting and diarrhea Continue to hold triamterin (pt received some IVF previously as Cr was 2.45) Creatinine 1.4 today (05/12/22) improved, Continue monitor BMP (11) Diabetes type 2, controlled: Plan: Hold Metformin while inpatient. Sliding scale insulin Hematuria Possible related to trauma from the catheter Urology consulted Follow up with urology for hematuria work-up as an outpatient with CT imaging and office cystoscopy. resolved (12) DVT prophylaxis: Plan: SQ Heparin discontinued due to hematuria Disposition Plan to discharge home w/ HH Admission and Anticipated Discharge Date Admission Date: May 02, 2022 Subjective Patient was seen and examined for follow-up for bacteremia, lower extremity edema and diarrhea Sitting in chair in no acute distress Denies any fevers, chills, chest pain, palpitation, dizziness, shortness of breath. Due to hematuria, Michaud was placed, and urology consulted again Yesterday Michaud catheter was removed, and patient has been voiding w/o difficulty. No more hematuria noted. ID consult obtained 2 step study repeated, no need for suppl. oxygen Discussed with family, plan to discharge home with home health. Review of Systems Review of Systems: All systems reviewed & are unremarkable except as noted in Subjective Physical Exam Physical Exam: General- No acute distress Head- at raumatic Eyes- PER RL, EOMI, ENT- hector pharynx clear Neck - supple, no JVD L ungs- clear to aus cultation Heart- + murmur Abdomen- no rmal bowel sounds, soft, nontender G U -Michaud catheter placed, drains caitie ar yellow urine Ex tremities- no suma f tenderness, +tra ce edema Neuro- al ert, oriented x 3; PERRL, EOMI; no f acial palsy; no dy sarthria, moves ex tremities Skin- wa rm & dry. Results & Data Results & Data ([facility]) Vital Signs (Past 12 Hours) Vital Signs Temp Pulse Pulse Resp BP BP Pulse Ox 05/12/22 08:01 36.7 C 89 18 125/79 92 05/12/22 04:50 37.1 C 70 18 125/75 92 05/12/22 00:06 36.7 C 71 16 119/70 95 05/11/22 23:53 72 O2 Del Method 05/12/22 08:01 Room Air 05/12/22 04:50 Room Air 05/12/22 00:06 Room Air 05/11/22 23:53 Laboratory Results 05/12/22 05/12/22 05/11/22 Range/Units 07:40 06:54 20:09 WBC (4.8-10.8) K/ul RBC (4.63-6.08) M/uL Hgb (14.0-18.0) g/dl Hct (40.1-51.0) % MCV (80.0-100.0) fL MCH (25.0-34.0) pg MCHC (32.0-36.0) g/dL RDW Std Deviation (36.4-46.3) fL RDW Coeff of Anny (11.5-14.5) % Plt Count (130-400) K/uL MPV (9.4-12.4) fL Sodium 139 (136-145) mmol/L Potassium 3.9 (3.5-5.1) mmol/L Chloride 112 H (98-107) mmol/L Carbon Dioxide 22 (21-32) mmol/L Anion Gap 5 (3-11) BUN 24 H (6-23) mg/dl Creatinine 1.39 (0.6-1.4) mg/dl Est Cr Clr Drug Dosing 44.7 ml/min Est GFR ( Amer) 55.9 ml/min Est GFR (Non-Af Amer) 48.2 ml/min BUN/Creatinine Ratio 17.3 (10-20) Glucose 94 (70-99(Fasting)) mg/dl POC Glucose 122 H 158 H (70-99) mg/dl Calcium 8.1 L (8.5-10.1) mg/dl Phosphorus (2.5-4.9) mg/dl Magnesium (1.7-2.4) mg/dl 05/11/22 05/11/22 05/11/22 Range/Units 16:31 11:44 11:09 WBC (4.8-10.8) K/ul RBC (4.63-6.08) M/uL Hgb (14.0-18.0) g/dl Hct (40.1-51.0) % MCV (80.0-100.0) fL MCH (25.0-34.0) pg MCHC (32.0-36.0) g/dL RDW Std Deviation (36.4-46.3) fL RDW Coeff of Anny (11.5-14.5) % Plt Count (130-400) K/uL MPV (9.4-12.4) fL Sodium 140 (136-145) mmol/L Potassium 4.4 (3.5-5.1) mmol/L Chloride 111 H (98-107) mmol/L Carbon Dioxide 24 (21-32) mmol/L Anion Gap 5 (3-11) BUN 25 H (6-23) mg/dl Creatinine 1.43 H (0.6-1.4) mg/dl Est Cr Clr Drug Dosing 43.5 ml/min Est GFR ( Amer) 54.0 ml/min Est GFR (Non-Af Amer) 46.6 ml/min BUN/Creatinine Ratio 17.5 (10-20) Glucose 104 H (70-99(Fasting)) mg/dl POC Glucose 153 H 119 H (70-99) mg/dl Calcium 8.5 (8.5-10.1) mg/dl Phosphorus 3.4 (2.5-4.9) mg/dl Magnesium 2.0 (1.7-2.4) mg/dl 05/11/22 Range/Units 11:09 WBC 10.17 (4.8-10.8) K/ul RBC 3.06 L (4.63-6.08) M/uL Hgb 9.9 L (14.0-18.0) g/dl Hct 30.3 L (40.1-51.0) % MCV 99.0 (80.0-100.0) fL MCH 32.4 (25.0-34.0) pg MCHC 32.7 (32.0-36.0) g/dL RDW Std Deviation 49.9 H (36.4-46.3) fL RDW Coeff of Anny 14.1 (11.5-14.5) % Plt Count 170 (130-400) K/uL MPV 8.6 L (9.4-12.4) fL Sodium (136-145) mmol/L Potassium (3.5-5.1) mmol/L Chloride (98-107) mmol/L Carbon Dioxide (21-32) mmol/L Anion Gap (3-11) BUN (6-23) mg/dl Creatinine (0.6-1.4) mg/dl Est Cr Clr Drug Dosing ml/min Est GFR ( Amer) ml/min Est GFR (Non-Af Amer) ml/min BUN/Creatinine Ratio (10-20) Glucose (70-99(Fasting)) mg/dl POC Glucose (70-99) mg/dl Calcium (8.5-10.1) mg/dl Phosphorus (2.5-4.9) mg/dl Magnesium (1.7-2.4) mg/dl Medications Administered Current Inpatient Medications Acetaminophen (Acetaminophen 325 Mg Tab) 650 mg PO Q4H PRN PRN Reason: Pain or Fever Stop: 05/30/22 17:53 Last Admin: 05/02/22 08:37 Dose: 650 mg Albuterol (Albuterol 0.083% Nebu Soln 3 Ml Vial) 2.5 mg NEB Q6R PRN; Protocol PRN Reason: wheezing, shortness of breath Stop: 05/31/22 16:14 Last Admin: 05/01/22 16:48 Dose: 2.5 mg Amantadine HCl (Amantadine Hcl 100 Mg Capsule) 100 mg PO DAILY [facility] Stop: 05/31/22 08:59 Last Admin: 05/11/22 08:15 Dose: 100 mg Aspirin (Aspirin 81 Mg Ectab) 81 mg PO QAM [facility] Stop: 05/31/22 08:59 Last Admin: 05/09/22 08:09 Dose: 81 mg Atorvastatin Calcium (Atorvastatin 40 Mg Tab) 40 mg PO QAM [facility] Stop: 05/31/22 08:59 Last Admin: 05/11/22 08:14 Dose: 40 mg Bupropion HCl (Bupropion Xl 150 Mg Tabcr) 150 mg PO DAILY JEANETH Stop: 05/31/22 08:59 Last Admin: 05/11/22 08:15 Dose: 150 mg Cephalexin HCl (Cephalexin 500 Mg Cap) 500 mg PO BID [facility] Stop: 05/30/22 20:59 Last Admin: 05/11/22 20:17 Dose: 500 mg Cholestyramine Resin (Cholestyramine Light 4 Gm Pkt) 4 gm PO BID@1000,2200 [facility] Stop: 06/03/22 12:29 Last Admin: 05/11/22 21:57 Dose: 4 gm Ciprofloxacin (Ciprofloxacin 500 Mg Tab) 500 mg PO Q12H JEANETH; Protocol Stop: 05/15/22 17:59 Last Admin: 05/12/22 06:07 Dose: 500 mg Dextrose (Dextrose 50% 50 Ml Syringe) 25 - 50 ml IV UD PRN; Protocol PRN Reason: Hypoglycemia Protocol Stop: 05/30/22 17:53 Donepezil HCl (Donepezil Hcl 10 Mg Tab) 10 mg PO HS [facility] Stop: 05/30/22 20:59 Last Admin: 04/30/22 20:01 Dose: 10 mg Escitalopram Oxalate (Escitalopram Oxalate 20 Mg Tab) 20 mg PO QAM [facility] Stop: 05/31/22 08:59 Last Admin: 05/11/22 08:14 Dose: 20 mg Ferrous Sulfate (Ferrous Sulfate 325 Mg Tab) 325 mg PO BID [facility] Stop: 05/30/22 20:59 Last Admin: 05/11/22 20:17 Dose: 325 mg Furosemide (Furosemide 40 Mg Tab) 40 mg PO MoWeFr [facility] Stop: 06/08/22 10:44 Last Admin: 05/11/22 08:18 Dose: 40 mg Glucagon (Glucagon For Inj 1 Mg Vial) 1 mg SQ UD PRN; Protocol PRN Reason: Hypoglycemia Protocol Stop: 05/30/22 17:53 Glucose (Glucose 10 Tabs/Tube) 4 - 8 tab PO UD PRN; Protocol PRN Reason: Hypoglycemia Protocol Stop: 05/30/22 17:53 Glucose (Glucose 40% Gel 15 Gm Tube) 15 - 30 gm PO UD PRN; Protocol PRN Reason: Hypoglycemia Protocol Stop: 05/30/22 17:53 Insulin Aspart (Insulin Aspart Per Unit) 0 units SC ACHS JEANETH Stop: 05/30/22 22:59 Last Admin: 05/12/22 08:08 Dose: 1 units Insulin Glargine (Lantus Per Unit Charge) 10 units SQ BID [facility] Stop: 05/30/22 20:59 Last Admin: 05/11/22 20:57 Dose: 10 units Lactobacillus Acidophilus (Advanced Probiotic 1250 Mg Capsule) 2 cap PO DAILY [facility] Stop: 06/09/22 17:14 Last Admin: 05/11/22 08:15 Dose: 2 cap Magnesium Oxide (Magnesium Oxide 400 Mg Tab) 400 mg PO QAM [facility] Stop: 05/31/22 08:59 Last Admin: 05/11/22 08:15 Dose: 400 mg Metoprolol Succinate (Metoprolol Succ 25mg Ext Rel Tab) [facility] Stop: 05/31/22 08:59 Last Admin: 05/11/22 08:14 Dose: 25 mg Metoprolol Tartrate (Metoprolol Tartrate 1 Mg/Ml Vial) 2.5 mg IV Q4H PRN PRN Reason: Tachycardia Stop: 06/02/22 23:47 Miscellaneous (Carbohydrates For Hypoglycemia ) 15 - 30 gm PO UD PRN PRN Reason: Hypoglycemia Protocol Stop: 05/30/22 17:53 Dupixent: Non- Formulary Patient's Own Med 1 each SC Q14D [facility] Stop: 06/01/22 13:59 Last Admin: 05/02/22 14:10 Dose: 300 mg Ondansetron HCl (Ondansetron Inj 2 Mg/Ml 2 Ml Vial) 4 mg IV Q6H PRN PRN Reason: Nausea And Vomiting Stop: 05/31/22 18:32 Last Admin: 05/01/22 18:40 Dose: 4 mg Pantoprazole Sodium (Pantoprazole 40 Mg Tab) 40 mg PO QAM [facility] Stop: 05/31/22 08:59 Last Admin: 05/11/22 08:15 Dose: 40 mg Tamsulosin HCl (Tamsulosin Hcl 0.4 Mg Cap) 0.4 mg PO HS [facility] Stop: 05/30/22 20:59 Last Admin: 05/11/22 20:17 Dose: 0.4 mg Triamterene/Hydrochlorothiazide (Triamterene/Hctz 37.5/25mg Tab) 1 tab PO DAILY [facility] Stop: 05/31/22 08:59 Last Admin: 05/01/22 08:57 Dose: 1 tab (1) CHF (congestive heart failure) Heart failure chronicity: acute Heart failure type: diastolic Qualified Code(s): I50.31 - Acute diastolic (congestive) heart failure
[2022-05-12] MEDS: cephALEXin 500 MG CAP PO SCH (09:31)
[2022-05-12] MEDS: FERROUS SULFATE 325 MG TAB PO SCH (09:31)
[2022-05-12] MEDS: ATORVASTATIN 40 MG TAB PO SCH (09:31)
[2022-05-12] MEDS: MAGNESIUM OXIDE 400 MG TAB PO SCH (09:32)
[2022-05-12] MEDS: AMANTADINE HCL 100 MG CAPSULE PO SCH (09:32)
[2022-05-12] MEDS: METOPROLOL SUCC 25MG EXT REL TAB PO SCH (09:32)
[2022-05-12] MEDS: PANTOprazole 40 MG TAB PO SCH (09:32)
[2022-05-12] MEDS: ESCITALOPRAM OXALATE 20 MG TAB PO SCH (09:32)
[2022-05-12] MEDS: ADVANCED PROBIOTIC 1250 MG CAPSULE PO SCH (09:32)
[2022-05-12] MEDS: buPROPion XL 150 MG TABCR PO SCH (09:32)
[2022-05-12] MEDS: LANTUS PER UNIT CHARGE SQ SCH (09:46)
--- NOTE | 2022-05-12 10:09 | Discharge Summary ---
Date of Service May 12, 2022 Admission HPI Per Admitting Provider Patient presented to the hospital today for worsening SOB at home. He has had SOB, balance issues, nausea, and lightheadedness has been going on for about 1 week but got acutely worse this morning. His legs have been swollen, and his Internal Grinder Tender, Dr. Stanton increased his Lasix this past week per his . He had been on Triamterene- HCTZ, but Lasix 40 mg daily was added over the past week. He does have [facility] at home coming in and they called Cardiology to let them know that his legs have been more swollen. His SOB got much worse today which is why they presented to the hospital. He has had a mild headache but nothing severe. He has been feeling lightheaded. No chest pain, palpitations. No sore throat. He has been wheezing recently, and he has been coughing slightly. This morning, the cough was worse and had some mild mucus production which was clear. When he eats, he feels full quickly, and he has been feeling bloated which has been going on for about 1 month. His appetite has been poor. No pain or burning with urination, but he is unable to hold his urine. He has had loose bowel movements chronically. Patient has not history of smoking or COPD. He does have history of fluid overload as an outpatient for which he has previously been given Lasix twice weekly with potassium. He is also on triamterene-HCTZ daily per his , Ashley. Last Echocardiogram was done in 03/2020 which showed hyperdynamic EF >70% and grade I diastolic dysfunction along with mitral regurg. His CXR upon admission shows poor inspiratory effort and possible small pleural effusions. COVID negative. Admission Exam Per Admitting Provider GENERAL: Alert and oriented x3. NAD, receiving breathing treatment via Oxymask HEENT: No pallor, no icterus. Pupils equal, round and reactive to light. Oral mucosa moist. NECK: No JVD, no neck masses. HEART: S1 and S2 heard. Tachycardic. No murmur, no gallop. RESPIRATORY SYSTEM: Normal AP diameter. No accessory muscle use. No wheezing, + crackles. decreased breath sounds b/l mid and lower zones ABDOMEN: Soft, bowel sounds present, nontender, no distention. CENTRAL NERVOUS SYSTEM: No facial droop. Speech is clear. Obeys simple commands. Moves extremities. EXTREMITIES: 2-3+ BLE edema, no erythema seen. Principal Diagnosis Salmonella enteritis Salmonella bacteremia Hematuria DORYS Discharge Exam General- No acute distress Head- atraumatic Eyes- PERRL, EOMI, ENT- oropharynx clear Neck- supple, no JVD Lungs- clear to auscultation Heart- +murmur Abdomen- normal bowel sounds, soft, nontender -Michaud catheter placed, drains clear yellow urine Extremities- no calf tenderness, +trace edema Neuro- alert, oriented x 3; PERRL, EOMI; no facial palsy; no dysarthria, moves extremities Skin- warm & dry. Discharge Data Allergies Allergy/AdvReac Type Severity Reaction Status Date / Time YONATAN Inhibitors AdvReac Mild Cough Verified 03/03/22 08:55 Consultations 04/30/22 14:46 ED Decision to Admit Stat 04/30/22 17:54 Consult Cardiology Routine 05/04/22 23:42 Consult Urology Routine 05/06/22 12:02 Consult Infectious Diseases Routine Ordered Studies 04/30/22 15:46 CT angio chest PE protocol Stat FINDINGS: Vasculature: There is homogeneous perfusion of the pulmonary vasculature bilaterally. No intraluminal filling defects or evidence for pulmonary embolus is seen. Airway: The airway is clear. No endobronchial lesion is identified. Lungs: There is elevation of hemidiaphragms with crowding of the bronchovascular markings at the lung bases bilaterally. The lungs are otherwise clear of acute alveolar opacities, air bronchograms or pulmonary nodules. Pleura: There is no evidence for pleural effusion. There is no evidence for pneumothorax. Mediastinum: There is no evidence for pathologic adenopathy. The heart is mildly enlarged. The heart size is within normal limits. There is previous cardiothoracic surgery. The thoracic aorta is within normal limits. There is no evidence for pericardial effusion. Upper abdomen:The adrenal glands are normal bilaterally. Osseous structures: There is no acute osseous pathology. Degenerative changes are present within the spine. Impression: 1. No CTA evidence for pulmonary embolus. 2. No acute chest disease. 3. Nonacute findings are delineated above. 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 His noted that he has had SOB, lightheadedness, and nausea x 1 week, and he has had worsening edema over this past week as well. Upon presentation, he was noted to have SaO2 of 88% improved to 95% on 2L/min nasal cannula Mild acute on chronic diastolic CHF Received IV lasix on admission CTA did not show any PE or acute lung disease Acute hypoxic respiratory failure improved 2 step showed no oxygen requirement at rest and 2l/min with activity. Will need to repeat this at time of dc -> repeat two-step study obtained on May 12, no need for oxygen Cardiology eval and recommendations noted TTE showed EF 60-65%, mild conc LVH, mild AV sclerosis, mild AR, moderate posterior MV leaflet prolapse, mild to mod anterior MV prolapse, mild MR Card recommend no further aggressive diuresis. Cardiology recommended Dyazide every other day alternating with furosemide 40 mg every other day (with more frequent furosemide dosing for any abrupt weight gain more than 2 lbs ). Lasix 40mg PO resumed to be given on Mon/Mon/monday Dyazide to start on Monday to be scheduled 4xtimes weekly ( Mon Uma, Sat, sun) Update: Because of DORYS,dyazide has been on hold. Cr improved. No edema. Pt breathing on room air. Two-step study obtained/repeated on 05/12, no need for oxygen Plan to DC on home regimen unchanged w/ follow up BMP and outpt providers (5) Diarrhea: Diarrhea. C diff is negative Stool studies + for salmonella Has Salmonella enteritis Continue ciprofloxacin Continue to have recurrent episode of watery diarrhea Continue cholestyramine to help with the diarrhea Monitor electrolytes Clinically improved significantly Bacteremia Sepsis Blood culture (05/02/22) positive for gram-negative bacilli-Salmonella Febrile, tachycardia salmonella in stools cx He has been afebrile for past several days Patient is on chronic keflex for cellulitis prophylaxis per EPIC Continue Cipro BID Repeat blood cx showed no growth ECHO done on 05/01 did not suggest any vegetation ID consulted -no more need for antibiotics, usually would treat with 8-day course, which patient has finished Continue home Keflex (6) Electrolyte imbalance: Mostly due to diarrhea Magnesium 1.4 on admission replete and monitor (7) Primary parkinsonism: (8) Dementia associated with Parkinson's disease: Balance has been worse than usual. He uses a walker at home. Fall precautions PT/OT on board recommending inpatient rehab Family would like patient to go to rehab, but pt would like to do therapy outpatient Fall precaution Discussed with family, plan to discharge home with home health (9) HTN (hypertension): Stable (10) CKD (chronic kidney disease) stage 3, GFR 30-59 ml/min: Has DORYS on CKD 3 Likely from GI losses with vomiting and diarrhea Continue to hold triamterin (pt received some IVF previously as Cr was 2.45) Creatinine 1.4 today (05/12/22) improved, Continue monitor BMP (11) Diabetes type 2, controlled: Hold Metformin while inpatient. Sliding scale insulin Hematuria Possible related to trauma from the catheter Urology consulted Follow up with urology for hematuria work-up as an outpatient with CT imaging and office cystoscopy. resolved (12) DVT prophylaxis: SQ Heparin discontinued due to hematuria Disposition Plan to discharge home w/ HH Total Time Total Time Spent Total Time Spent (In Minutes): 40 Discharge Plan Discharge Items Patient Disposition: Home - Home Health Services Reason For Visit: SOB Discharge Diagnosis: Salmonella enteritis Salmonella bacteremia Hematuria DORYS Activity: Per Instructions section Non-emergency contact: Primary Care Provider Call non-emergency contact if: you have any medication questions and your symptoms worsen Follow-up/Referrals: Michael Hinton MD [Primary Care Provider] - (Date & Time 05/04/2022 11:40 AM Provider Michael Hinton MD Department Family Practice [facility] ) Diet: Carb Consistent or DM2 and Heart Healthy Addtl Attending Provider Instructions: Follow-up with your primary care doctor within 1 week. You should get blood work, BMP at that time, to check on your kidney function. Because of your hematuria/blood in the urine, you will also need to see urologist. You will be contacted about the appointment. Recommended taking probiotic for at least a week. Pending Studies at Discharge: No Stand-Alone Forms: [employer], Smoking Cessation Medications and DC Order Prescriptions: New Advanced Probiotic 625 mg (10 billion cell) Capsule 2 cap PO DAILY 7 Days Qty: 14 0RF Continued escitalopram oxalate 20 mg tablet 20 mg PO QAM Qty: 90 3RF potassium chloride 20 mEq tablet extended release 20 meq PO 2XWK Qty: 30 3RF Rx Instructions: Take with Furosemide on Monday & Monday metoprolol succinate 25 mg tablet extended release 24 hr 25 mg PO QAM Qty: 90 3RF amantadine HCl 100 mg capsule 100 mg PO DAILY donepezil 5 mg tablet 5 mg PO DAILY Dupixent Pen 300 mg/2 mL pen injector 300 mg subcut .every 2 weeks Rx Instructions: Every other Monday- due 05/02 donepezil 10 mg tablet 10 mg PO HS triamterene-hydrochlorothiazid 37.5-25 mg tablet 1 tab PO [id number] Rx Instructions: take daily except monday and monday when taking furosemide melatonin 10 mg tablet 10 mg PO HS PRN (Reason: Sleep) magnesium oxide 400 mg magnesium capsule 400 mg PO QAM furosemide 40 mg tablet 40 mg PO 2XWK Qty: 30 3RF Rx Instructions: Take Monday & Monday instead of triamterene /HCTZ atorvastatin 40 mg Tablet 40 mg PO QAM tamsulosin 0.4 mg capsule 0.4 mg PO HS Qty: 90 0RF Rx Instructions: Take at bedtime to avoid dizziness. pantoprazole 40 mg tablet,delayed release (DR/EC) 40 mg PO QAM aspirin [Negar Low Dose Aspirin] 81 mg Tablet,Delayed Release (Dr/Ec) 81 mg PO QAM metformin 500 mg tablet extended release 24 hr 500 mg PO QAM bupropion HCl 150 mg tablet extended release 24 hr 150 mg PO DAILY fluocinonide 0.05 % solution 1 applic TOPICAL DAILY PRN (Reason: after bathing) Rx Instructions: apply to scalp cephalexin 500 mg capsule 500 mg PO BID ferrous sulfate 325 mg (65 mg iron) tablet 325 mg PO BID Qty: 60 1RF Discharge Orders: Discharge Order (Routine); Ordered 05/12/22 Ordered By: Gerardo Galarza Admission Data Admit Date/Time: 05/02/22 10:32 Attending Provider: Gerardo Galarza Admit Provider: Tonia Baeza Primary Care Provider: Michael Hinton Other Providers: Tonia Baeza ; wJ Ward ; Sonia Dale I. ; Nitin Green ; Eddi Barrios ; Jw Mccarthy ; Lata Pitts ; Babatunde Thakkar ; Juliane Lake ; Nisreen Becker ; Gil Galeas ; Sean Redding ; Lilo Back ; Iftikhar Hercules ; Geneva Desouza ; Justin Harrington ; Deo Cano ; Luis A Oconnor ; Lamberto Vievros I. ; Oleg Gonzales II ; Nataly Bergman ; Gilbert Kumari ; Jesus Leal ; Lucy Alexander
[2022-05-12] MEDS: CHOLESTYRAMINE LIGHT 4 GM PKT PO SCH (11:26)
== END 2022-05-12 13:13 | disposition home health service (06) | DRG 291 ==
LOC: 2S 12:47 → ED 12:47 → SUATTDRO 15:36 → 2S 17:24 → SUATTDRO 05-02 10:32

== ENCOUNTER 2022-07-05 10:25 | Inpatient (IN) ==
[2022-07-05] MEDS ORDERED: CEFEPIME 2,000 MG/20 ML VIAL IV STA (10:58)
[2022-07-05 11:20] LABS: Basophils # (auto) 0.01 K/uL (0-0.2); Basophils % (auto) 0.1 %; Eosinophils # (auto) 0.03 K/uL (0-0.50); Eosinophils % (auto) 0.4 %; Hemoglobin 9.4 g/dl (14.0-18.0); Immature Granulocytes # (auto) 0.04 K/uL (0.00-0.02); Immature Granulocytes % (auto) 0.6 %; Lymphocytes # (auto) 0.72 K/uL (1.2-3.4); Lymphocytes % (auto) 10.7 %; Mean Corpuscular Hemoglobin 32.3 pg (25.0-34.0); Mean Corpuscular Hgb Conc 32.4 g/dL (32.0-36.0); Mean Corpuscular Volume 99.7 fL (80.0-100.0); Mean Platelet Volume 9.3 fL (9.4-12.4); Monocytes # (auto) 0.25 K/uL (0.24-0.82); Monocytes % (auto) 3.7 %; Neutrophils # (auto) 5.66 K/uL (1.4-6.5); Neutrophils % (auto) 84.5 %; Platelet Count 170 K/uL (130-400); RDW Coefficient of Variation 16.3 % (11.5-14.5); RDW Standard Deviation 58.5 fL (36.4-46.3); Red Blood Count 2.91 M/uL (4.63-6.08); White Blood Count 6.71 K/ul (4.8-10.8)
[2022-07-05] MEDS ORDERED: VANCOMYCIN CONSULT ACTIVE PRN (11:25)
[2022-07-05] MEDS ORDERED: VANCOMYCIN HCL 2,000 MG in SODIUM CHLORIDE 0.9% 500 ML IV ONE (11:25)
--- NOTE | 2022-07-05 11:33 | XRay Report ---
XR chest 1V portable CLINICAL HISTORY: SEPSIS TECHNIQUE: Single frontal radiograph of the chest was obtained. Comparison: Comparison is made to chest radiographs of 922 FINDINGS: Median sternotomy wires are unchanged. Calcified aortic knob is seen, cardiomegaly is unchanged.. Pro minence and cephalization of the vasculature is seen. There is blunting of the left costophrenic angl e which may represent prominent epicardial fat versus small effusion. IMPRESSION: 1. Cardiomegaly and mild pulmonary edema. 2. Possible small left pleural effusion. ACT 112: Negative or not required by law. Electronically signed by: Jim Ivan M.D. 07/05/2022 11:32 AM
[2022-07-05 11:34] LABS: Partial Thromboplastin Ratio 0.8; Prothrombin Time 10.9 Seconds (9.0-12.0)
[2022-07-05 11:43] LABS: Albumin Level 4.1 gm/dl (3.4-5.0); BUN Creatinine Ratio 14.3 (10-20); Bilirubin,Total 0.5 mg/dl (0.2-1.0); Calcium 9.2 mg/dl (8.5-10.1); Creatinine Clr Calc Pharmacy 49.9 ml/min; Est GFR (African American) 67.4 ml/min; Est GFR (Non-African American) 58.2 ml/min; Magnesium 1.5 mg/dl (1.7-2.4); Potassium 4.1 mmol/L (3.5-5.1); Total Protein 6.1 gm/dl (6.0-8.3)
[2022-07-05 11:46] LABS: Troponin I High Sensitivity 9.6 pg/ml (0-20)
--- NOTE | 2022-07-05 12:08 | Emergency Department Note ---
History of Present Illness General Chief complaint: Shortness of Breath/Dyspnea Stated complaint: WEAKNESS, SOB Time Seen by Provider: 07/05/22 10:37 History of Present Illness 77-year-old male presents to the ED with a chief complaint of shaking this morning. The patient was also weak. He was unable to get up on his own when EMS arrived. The states that he has not been sleeping well for the past couple of days. He is currently on antibiotics for a bad tooth. He has an infected right posterior he is currently on antibiotics for the past 5 days. He had a temperature this morning 100.3 at home per the daughter. He was shaking this morning as if he was cold. This is according to the daughter. He also had some nausea and vomiting this morning. He vomited up some phlegm. The patient was found to be hypoxic here with oxygen saturations of 87% on room air. He does not use oxygen at home. Home Medications Medication Instructions Recorded Confirmed Type atorvastatin 40 mg tablet 40 mg PO QAM 09/02/18 04/30/22 History tamsulosin 0.4 mg capsule 0.4 mg PO HS #90 caps 12/11/19 04/30/22 Rx amantadine HCl 100 mg capsule 100 mg PO DAILY 05/22/20 04/30/22 History aspirin 81 mg tablet,delayed 81 mg PO QAM 02/02/21 04/30/22 History release (Negar Low Dose Aspirin) pantoprazole 40 mg tablet,delayed 40 mg PO QAM 02/02/21 04/30/22 History release donepezil 10 mg tablet 10 mg PO HS 05/11/21 04/30/22 History magnesium oxide 400 mg PO QAM 05/11/21 04/30/22 History melatonin 10 mg tablet 10 mg PO HS PRN Sleep 05/11/21 04/30/22 History triamterene 37.5 1 tab PO 5XWK 05/11/21 04/30/22 History mg-hydrochlorothiazide 25 mg tablet bupropion HCl 150 mg 24 hr tablet, 150 mg PO DAILY 06/17/21 04/30/22 History extended release cephalexin 500 mg capsule 500 mg PO BID 06/17/21 04/30/22 History fluocinonide 0.05 % topical 1 applic topical DAILY PRN after 06/17/21 04/30/22 History solution bathing metformin 500 mg tablet,extended 500 mg PO QAM 06/17/21 04/30/22 History release 24 hr ferrous sulfate 325 mg (65 mg 325 mg PO BID #60 tabs 06/19/21 04/30/22 Rx iron) tablet donepezil 5 mg tablet 5 mg PO DAILY Mornings 03/03/22 04/30/22 History dupilumab 300 mg/2 mL subcutaneous 300 mg subcut .every 2 weeks 03/03/22 04/30/22 History pen injector (Dupixent) escitalopram oxalate 20 mg tablet 20 mg PO QAM #90 tabs 03/29/22 04/30/22 Rx potassium chloride 20 mEq 20 meq PO 2XWK #30 tabs 04/15/22 04/30/22 Rx tablet,extended release metoprolol succinate 25 mg 25 mg PO QAM #90 tabs 04/19/22 04/30/22 Rx tablet,extended release 24 hr furosemide 40 mg tablet 40 mg PO 2XWK #30 tabs 05/19/22 Rx Allergies Allergy/AdvReac Type Severity Reaction Status Date / Time YONATAN Inhibitors AdvReac Mild Cough Verified 03/03/22 08:55 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 Diabetes type 2, controlled Diabetic ulcer of right heel associated with diabetes mellitus due to underlying condition, with fat layer exposed Dyslipidemia Fall GERD (gastroesophageal reflux disease) HTN (hypertension) HTN (hypertension) Lumbar spondylosis Moderate mitral regurgitation Orthostatic hypotension (07/2019) Peripheral arterial disease Primary parkinsonism Seasonal allergies Sensorineural hearing loss (SNHL) of both ears Sepsis due to group B Streptococcus (2018) 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 Father Hypertension, Onset Age: 40 at 40 Mother Hypertension COPD (chronic obstructive pulmonary disease) Diabetes Brother Allergies Asthma Denies family history of Prostate cancer Hearing loss No family history of adverse response to anesthesia No family history of bleeding disorder Heart disease Cancer Stroke Social History Smoking Status: Never smoker Hx Alcohol Use: No Hx Substance Use: No Preferred Language: Thai Communication Ability: Effective [place] Required: No Beliefs That Will Affect Care: None marital status: Current Living Situation: Spouse Current Living Situation Comment: Feels Safe at Home: Yes Assistive Devices: Walker Review of Systems A total of 10 systems reviewed and were otherwise negative Physical Exam Vital Signs Vital Signs - 24 hr 07/05/22 10:25 07/05/22 10:25 07/05/22 10:25 Temperature 37.2 C Temperature Source Oral Pulse Rate Pulse Rate [Apical] 111 H Pulse Rhythm [Apical] Regular Pulse Strength [Apical] Normal Respiratory Rate 29 H Respiratory Effort / Characteristics Short of Breath Short of Breath Respiratory Depth Respiratory Pattern Blood Pressure Blood Pressure [Right Arm] 177/75 H Blood Pressure Mean Blood Pressure Mean [Right Arm] 109 Blood Pressure Position Blood Pressure Position [Right Arm] Sitting Pulse Oximetry 87 L 87 L Oxygen Delivery Method Room Air Room Air Oxygen Flow Rate 0 Sepsis Recent Fever Within 48 Hours Sepsis New/Unexplained Change in Mental Status Sepsis Action Taken by Nursing Oxygen Flow Rate - Titration 2 Pulse Oximetry Post Tiitration 96 07/05/22 10:25 07/05/22 11:10 07/05/22 11:11 Temperature 37.2 C Temperature Source Oral Pulse Rate 111 H Pulse Rate [Apical] 111 H Pulse Rhythm [Apical] Pulse Strength [Apical] Respiratory Rate 29 H 18 Respiratory Effort / Characteristics Short of Breath Respiratory Depth Respiratory Pattern Blood Pressure 177/75 H Blood Pressure [Right Arm] 167/86 H Blood Pressure Mean 109 Blood Pressure Mean [Right Arm] 113 Blood Pressure Position Sitting Blood Pressure Position [Right Arm] Pulse Oximetry 87 L 96 96 Oxygen Delivery Method Room Air Nasal Cannula Nasal Cannula Oxygen Flow Rate 0 2 2 Sepsis Recent Fever Within 48 Hours No Sepsis New/Unexplained Change in Mental Status N/A Sepsis Action Taken by Nursing No Action Required Oxygen Flow Rate - Titration Pulse Oximetry Post Tiitration 07/05/22 11:53 07/05/22 11:53 07/05/22 11:54 Temperature Temperature Source Pulse Rate Pulse Rate [Apical] 100 H Pulse Rhythm [Apical] Pulse Strength [Apical] Respiratory Rate 18 18 Respiratory Effort / Characteristics Respiratory Depth Respiratory Pattern Blood Pressure Blood Pressure [Right Arm] 173/74 H Blood Pressure Mean Blood Pressure Mean [Right Arm] 107 Blood Pressure Position Blood Pressure Position [Right Arm] Pulse Oximetry 96 96 Oxygen Delivery Method Nasal Cannula Nasal Cannula Nasal Cannula Oxygen Flow Rate 2 2 2 Sepsis Recent Fever Within 48 Hours Sepsis New/Unexplained Change in Mental Status Sepsis Action Taken by Nursing Oxygen Flow Rate - Titration Pulse Oximetry Post Tiitration 07/05/22 11:54 07/05/22 12:40 07/05/22 12:49 Temperature Temperature Source Pulse Rate Pulse Rate [Apical] 107 H 100 H Pulse Rhythm [Apical] Irregular Pulse Strength [Apical] Respiratory Rate 18 18 Respiratory Effort / Characteristics Respiratory Depth Respiratory Pattern Blood Pressure Blood Pressure [Right Arm] Blood Pressure Mean Blood Pressure Mean [Right Arm] Blood Pressure Position Blood Pressure Position [Right Arm] Pulse Oximetry 96 97 96 Oxygen Delivery Method Nasal Cannula Nasal Cannula Nasal Cannula Oxygen Flow Rate 2 2 2 Sepsis Recent Fever Within 48 Hours Sepsis New/Unexplained Change in Mental Status Sepsis Action Taken by Nursing Oxygen Flow Rate - Titration Pulse Oximetry Post Tiitration 07/05/22 12:49 07/05/22 13:53 07/05/22 14:00 Temperature Temperature Source Pulse Rate Pulse Rate [Apical] 99 H 92 H 92 H Pulse Rhythm [Apical] Irregular Regular Pulse Strength [Apical] Normal Respiratory Rate 16 16 18 Respiratory Effort / Characteristics Non-Labored Respiratory Depth Normal Normal Respiratory Pattern Regular Blood Pressure Blood Pressure [Right Arm] 123/74 Blood Pressure Mean Blood Pressure Mean [Right Arm] 90 Blood Pressure Position Blood Pressure Position [Right Arm] Lying Pulse Oximetry 95 99 98 Oxygen Delivery Method Nasal Cannula Room Air Room Air Oxygen Flow Rate 2 Sepsis Recent Fever Within 48 Hours Sepsis New/Unexplained Change in Mental Status Sepsis Action Taken by Nursing Oxygen Flow Rate - Titration Pulse Oximetry Post Tiitration CONSTITUTIONAL/VITAL SIGNS: Reviewed / noted above. GENERAL: Non-toxic in appearance. Last weakness. INTEGUMENTARY: Warm, dry, and [place]. HEAD: Normocephalic. EYES: without scleral icterus or trauma. ENT/OROPHARYNX: clear and moist. Decayed right lower posterior molar. No obvious abscess. LYMPHADENOPATHY/NECK: Is supple without lymphadenopathy or meningismus. RESPIRATORY: Clear to auscultation bilaterally but diminished. Tachypneic. CARDIOVASCULAR: Regular rate and irregular rhythm. GI/ABDOMEN: Soft and nontender. No organomegaly or pulsatile mass. EXTREMITIES: Warm and well perfused. Lower extremity pedal edema. Chronic. BACK: No CVA tenderness. NEUROLOGICAL: Intact without focal deficits. PSYCHIATRIC: normal affect. MUSCULOSKELETAL: Normally developed with good muscle tone. TRIAGE NURSING DOCUMENTATION REVIEWED. Course Administered Medications Discontinued Medications Furosemide (Furosemide 40 Mg/4 Ml Vial) 40 mg IV NOW STA Stop: 07/05/22 14:08 Last Admin: 07/05/22 14:23 Dose: 40 mg Documented By: Cefepime HCl (Maxipime) 2,000 mg in 20 mls @ 5 mls/min IV NOW STA; Protocol Stop: 07/05/22 11:01 Last Admin: 07/05/22 11:52 Dose: 5 mls/min Documented By: JOY Vancomycin HCl 2,000 mg/ (Sodium Chloride) 540 mls @ 200 mls/hr IV NOW ONE Stop: 07/05/22 14:06 Last Admin: 07/05/22 11:52 Dose: 200 mls/hr Documented By: JOY Ioversol (Optiray 300 500ml) 111 ml IV ONCE ONE Stop: 07/05/22 13:41 Last Admin: 07/05/22 13:40 Dose: 111 ml Documented By: KARSON Medical Decision Making Differential Diagnosis Differential includes acute coronary syndrome, myocardial infarction, CVA, TIA, anemia, infection, pneumonia, UTI, pyelonephritis, poor nutrition, dehydration, electrolyte disturbance,hypoglycemia. Medical Records Attestation: I reviewed the patient's medical records. Home Medications Current Medication List: was personally reviewed by me Laboratory Data Attestation: I reviewed the patient's lab results. Result diagrams: 07/05/22 10:37 07/05/22 10:37 Lab Results 07/05/22 07/05/22 07/05/22 Range/Units 10:37 10:37 10:37 WBC 6.71 (4.8-10.8) K/ul RBC 2.91 L (4.63-6.08) M/uL Hgb 9.4 L (14.0-18.0) g/dl Hct 29.0 L (40.1-51.0) % MCV 99.7 (80.0-100.0) fL MCH 32.3 (25.0-34.0) pg MCHC 32.4 (32.0-36.0) g/dL RDW Std Deviation 58.5 H (36.4-46.3) fL RDW Coeff of Anny 16.3 H (11.5-14.5) % Plt Count 170 (130-400) K/uL MPV 9.3 L (9.4-12.4) fL Immature Gran % (Auto) 0.6 % Neut % (Auto) 84.5 % Lymph % (Auto) 10.7 % [place] % (Auto) 3.7 % Eos % (Auto) 0.4 % Baso % (Auto) 0.1 % Neut # (Auto) 5.66 (1.4-6.5) K/uL Lymph # (Auto) 0.72 L (1.2-3.4) K/uL [place] # (Auto) 0.25 (0.24-0.82) K/uL Eos # (Auto) 0.03 (0-0.50) K/uL Baso # (Auto) 0.01 (0-0.2) K/uL Immature Gran # (Auto) 0.04 H (0.00-0.02) K/uL PT 10.9 (9.0-12.0) Seconds INR 1.0 (0.9-1.1) APTT 22.0 (21.0-31.0) Seconds PTT Ratio 0.8 Sodium 137 (136-145) mmol/L Potassium 4.1 (3.5-5.1) mmol/L Chloride 104 (98-107) mmol/L Carbon Dioxide 24 (21-32) mmol/L Anion Gap 9 (3-11) BUN 17 (6-23) mg/dl Creatinine 1.19 (0.6-1.4) mg/dl Est Cr Clr Drug Dosing 49.9 ml/min Est GFR ( Amer) 67.4 ml/min Est GFR (Non-Af Amer) 58.2 ml/min BUN/Creatinine Ratio 14.3 (10-20) Glucose 169 H (70-99(Fasting)) mg/dl Lactate (0.4-2.0) mmol/L Calcium 9.2 (8.5-10.1) mg/dl Magnesium 1.5 L (1.7-2.4) mg/dl Total Bilirubin 0.5 (0.2-1.0) mg/dl AST 16 (13-39) U/L ALT 11 (7-52) U/L Alkaline Phosphatase 106 H (34-104) U/L Troponin I High Sens 9.6 (0-20) pg/ml B-Natriuretic Peptide (0-100) pg/ml Total Protein 6.1 (6.0-8.3) gm/dl Albumin 4.1 (3.4-5.0) gm/dl Globulin 2.0 L (2.5-4.0) gm/dl Albumin/Globulin Ratio 2.0 (0.9-2) SARS-CoV-2, RNA, NAAT (NEGATIVE) 07/05/22 07/05/22 07/05/22 Range/Units 11:30 11:30 Unknown WBC (4.8-10.8) K/ul RBC (4.63-6.08) M/uL Hgb (14.0-18.0) g/dl Hct (40.1-51.0) % MCV (80.0-100.0) fL MCH (25.0-34.0) pg MCHC (32.0-36.0) g/dL RDW Std Deviation (36.4-46.3) fL RDW Coeff of Anny (11.5-14.5) % Plt Count (130-400) K/uL MPV (9.4-12.4) fL Immature Gran % (Auto) % Neut % (Auto) % Lymph % (Auto) % [place] % (Auto) % Eos % (Auto) % Baso % (Auto) % Neut # (Auto) (1.4-6.5) K/uL Lymph # (Auto) (1.2-3.4) K/uL [place] # (Auto) (0.24-0.82) K/uL Eos # (Auto) (0-0.50) K/uL Baso # (Auto) (0-0.2) K/uL Immature Gran # (Auto) (0.00-0.02) K/uL PT (9.0-12.0) Seconds INR (0.9-1.1) APTT (21.0-31.0) Seconds PTT Ratio Sodium (136-145) mmol/L Potassium (3.5-5.1) mmol/L Chloride (98-107) mmol/L Carbon Dioxide (21-32) mmol/L Anion Gap (3-11) BUN (6-23) mg/dl Creatinine (0.6-1.4) mg/dl Est Cr Clr Drug Dosing ml/min Est GFR ( Amer) ml/min Est GFR (Non-Af Amer) ml/min BUN/Creatinine Ratio (10-20) Glucose (70-99(Fasting)) mg/dl Lactate 1.5 (0.4-2.0) mmol/L Calcium (8.5-10.1) mg/dl Magnesium (1.7-2.4) mg/dl Total Bilirubin (0.2-1.0) mg/dl AST (13-39) U/L ALT (7-52) U/L Alkaline Phosphatase (34-104) U/L Troponin I High Sens (0-20) pg/ml B-Natriuretic Peptide 284 H (0-100) pg/ml Total Protein (6.0-8.3) gm/dl Albumin (3.4-5.0) gm/dl Globulin (2.5-4.0) gm/dl Albumin/Globulin Ratio (0.9-2) SARS-CoV-2, RNA, NAAT NEGATIVE (NEGATIVE) Imaging Data Radiologist's Impression: Chest X-Ray 07/05/22 10:58 XR chest 1V portable CLINICAL HISTORY: SEPSIS TECHNIQUE: Single frontal radiograph of the chest was obtained. Comparison: Comparison is made to chest radiographs of 922 FINDINGS: Median sternotomy wires are unchanged. Calcified aortic knob is seen, cardiomegaly is unchanged.. Prominence and cephalization of the vasculature is seen. There is blunting of the left costophrenic angle which may represent prominent epicardial fat versus small effusion. IMPRESSION: 1. Cardiomegaly and mild pulmonary edema. 2. Possible small left pleural effusion. ACT 112: Negative or not required by law. Electronically signed by: Jim Ivan M.D. 07/05/2022 11:32 AM Chest CTA 07/05/22 12:01 CT ANGIOGRAPHY OF THE CHEST, PULMONARY EMBOLUS PROTOCOL CLINICAL HISTORY: Shortness of breath. COMPARISON STUDY: Chest CT April 30, 2022. Chest radiograph performed earlier today. TECHNIQUE: Following IV administration of 111 mL of Optiray, helical axial images of the chest were obtained utilizing the pulmonary embolus protocol. Maximal intensity projections and sagittal and coronal reformats were viewed on an independent 3D workstation. IV contrast was administered without complication. Automated exposure control was utilized for the study. A dose lowering technique was utilized adhering to the principles of ALARA. CT DOSE: 491.24 mGycm FINDINGS: This exam is significantly compromised by respiratory motion. No central or lobar pulmonary emboli are identified. Remainder of the pulmonary arteries are suboptimally assessed on this exam. Cardiomegaly is noted. There are postoperative findings following median sternotomy and coronary artery bypass grafting. Mild dilatation of the ascending aorta, measuring 4 cm, is unchanged since prior CT. There is no thoracic aortic dissection. No pneumothorax or pleural effusion. There is no thoracic adenopathy. There is no consolidation to suggest pneumonia although lungs are suboptimally assessed due to respiratory motion. Linear opacities favor atelectasis. No acute fracture wi thin the visualized bony thorax. Visualized portions of the upper abdomen are unremarkable. IMPRESSION: 1. Exam significantly compromised by respiratory motion, as described above. No pulmonary emboli identified. 2. Cardiomegaly. No thoracic aortic dissection. 3. No consolidation to suggest pneumonia. Linear opacities which favor atelectasis. ACT 112: Negative or not required by law. Electronically signed by: Calixto Bai M.D. 07/05/2022 2:00 PM ECG Data Attestation: I personally reviewed and interpreted this ECG as follows: Additional Comments: 12 lead EKG: Per my interpretation shows atrial fibrillation at a rate of 118. PVC. No ST elevation. Normal QTC. MDM Narrative 77-year-old male presents to the ED with a chief complaint of generalized weakness as well as some chills this morning. He was found to be hypoxic with oxygen saturations of 87% on room air here. He does not use home oxygen. Exam reveals chronic right lower extremity edema. The patient is currently on oral antibiotics for dental decay. He was going to have his tooth removed after the course of antibiotics. Clinically the patient's lungs are diminished on my exam. A twelve-lead EKG shows atrial fibrillation at a rate of 118 with a PVC. Hemoglobin is 9.4. That is baseline. White blood cell count is 6.7. Troponin was negative. COVID test was negative. BNP was elevated 284. CT scan of the chest did not show evidence of PE or pneumonia. The patient was empirically treated with IV antibiotics. Because of his history of MRSA infection, he was given IV cefepime as well as IV vancomycin. He was given 40 mg IV Lasix for the possibility of heart failure and fluid overload. I did speak with the hospitalist about the patient. They will see him for further evaluation. Impression & Plan Hypoxia, Congestive heart failure, Generalized weakness Discharge Plan Visit Data Chief Complaint: Shortness of Breath/Dyspnea Stated Complaint: WEAKNESS, SOB ED Provider: Kirk Zamudio Discharge Problem: Hypoxia, Congestive heart failure, Generalized weakness Patient Disposition: Being Evaluated by Hospitalist Forms Stand Alone Forms: My [facility], Virtual Emergency Department, Important Visit Information Prescriptions Prescriptions: No Action escitalopram oxalate 20 mg tablet 20 mg PO QAM Qty: 90 3RF potassium chloride 20 mEq tablet extended release 20 meq PO 2XWK Qty: 30 3RF Rx Instructions: Take with Furosemide on Monday & Monday metoprolol succinate 25 mg tablet extended release 24 hr 25 mg PO QAM Qty: 90 3RF furosemide 40 mg tablet 40 mg PO 2XWK Qty: 30 3RF Rx Instructions: Take Monday & Monday instead of triamterene /HCTZ amantadine HCl 100 mg capsule 100 mg PO DAILY donepezil 5 mg tablet 5 mg PO DAILY Dupixent Pen 300 mg/2 mL pen injector 300 mg subcut .every 2 weeks Rx Instructions: Every other Monday- due 05/02 donepezil 10 mg tablet 10 mg PO HS triamterene-hydrochlorothiazid 37.5-25 mg tablet 1 tab PO 5XWK Rx Instructions: take daily except monday and monday when taking furosemide melatonin 10 mg tablet 10 mg PO HS PRN (Reason: Sleep) magnesium oxide 400 mg magnesium capsule 400 mg PO QAM atorvastatin 40 mg Tablet 40 mg PO QAM tamsulosin 0.4 mg capsule 0.4 mg PO HS Qty: 90 0RF Rx Instructions: Take at bedtime to avoid dizziness. pantoprazole 40 mg tablet,delayed release (DR/EC) 40 mg PO QAM aspirin [Negar Low Dose Aspirin] 81 mg Tablet,Delayed Release (Dr/Ec) 81 mg PO QAM metformin 500 mg tablet extended release 24 hr 500 mg PO QAM bupropion HCl 150 mg tablet extended release 24 hr 150 mg PO DAILY fluocinonide 0.05 % solution 1 applic TOPICAL DAILY PRN (Reason: after bathing) Rx Instructions: apply to scalp cephalexin 500 mg capsule 500 mg PO BID ferrous sulfate 325 mg (65 mg iron) tablet 325 mg PO BID Qty: 60 1RF Referrals Referrals: Michael Hinton MD [Primary Care Provider] -
[2022-07-05] MEDS ORDERED: OPTIRAY 300 500mL IV ONE (13:40)
--- NOTE | 2022-07-05 14:02 | CT Scan Report ---
CT ANGIOGRAPHY OF THE CHEST, PULMONARY EMBOLUS PROTOCOL CLINICAL HISTORY: Shortness of breath. COMPARISON STUDY: Chest CT April 30, 2022. Chest radiograph performed earlier today. TECHNIQUE: Following IV administration of 111 mL of Optiray, helical axial images of the chest were o btained utilizing the pulmonary embolus protocol. Maximal intensity projections and sagittal and cor onal reformats were viewed on an independent 3D workstation. IV contrast was administered without co mplication. Automated exposure control was utilized for the study. A dose lowering technique was ut ilized adhering to the principles of ALARA. CT DOSE: 491.24 mGycm FINDINGS: This exam is significantly compromised by respiratory motion. No central or lobar pulmonar y emboli are identified. Remainder of the pulmonary arteries are suboptimally assessed on this exam. Cardiomegaly is noted. There are postoperative findings following median sternotomy and coronary trent ry bypass grafting. Mild dilatation of the ascending aorta, measuring 4 cm, is unchanged since prior CT. There is no thoracic aortic dissection. No pneumothorax or pleural effusion. There is no thoracic adenopathy. There is no consolidation to suggest pneumonia although lungs are suboptimally assessed due to respiratory motion. Linear opacities favor atelectasis. No acute fracture within the visualize d bony thorax. Visualized portions of the upper abdomen are unremarkable. IMPRESSION: 1. Exam significantly compromised by respiratory motion, as described above. No pulmonary emboli iden tified. 2. Cardiomegaly. No thoracic aortic dissection. 3. No consolidation to suggest pneumonia. Linear opacities which favor atelectasis. ACT 112: Negative or not required by law. Electronically signed by: Calixto Bai M.D. 07/05/2022 2:00 PM
[2022-07-05] MEDS ORDERED: FUROSEMIDE 40 MG/4 ML VIAL IV STA (14:07)
--- NOTE | 2022-07-05 14:12 | Electrocardiogram Report ---
Test Reason : Blood Pressure : / mmHG Vent. Rate : 118 BPM Atrial Rate : 125 BPM P-R Int : 000 ms QRS Dur : 094 ms QT Int : 342 ms P-R-T Axes : 000 -40 113 degrees QTc Int : 479 ms Sinus tachycardia with frequent Premature atrial complexes and Premature ventricular complexes Left axis deviation Incomplete right bundle branch block Cannot rule out Anterior infarct (cited on or before 30-APR-2022) Abnormal ECG When compared with ECG of 03-MAY-2022 23:40, No significant change Confirmed by Tonio Ernandez ([id number]) on 07/05/2022 2:12:33 PM Referred By: REFERRED SELF Confirmed By:Tonio Ernandez
--- NOTE | 2022-07-05 14:28 | History & Physical Report ---
Date of Service July 05, 2022 Assessment & Plan (1) Dental infection: Plan: - Admit to med surg with tele - Concern for early phase sepsis with fever, chills, weakness, rigors, pain in mouth. Pt has been taking tylenol around the clock x 5 days with antibiotic for pain so likely is masking fever. - Pt has been on amoxicillin 500 mg TID x 5 days (prescribed 10 day course). Also is on keflex 500 mg BID for lower extremity ulcerations + MRSA from last admission prophylactically - Obtain CT soft tissue neck wo contrast stat, consider oromaxillofacial consult - Allow diet pending no dental abscess on imaging - MRSA swab of nose with hx of such, given dose of vanc and cefepime in the ER, will adjust antibiotics to Rocephin 2 g q12H and flagyl 500 q8H IV (2) CHF (congestive heart failure): (3) HTN (hypertension): (4) Dyslipidemia: (5) Coronary artery disease: Plan: - Possible that he is slightly volume up with edema of legs, no JVD - Last Echo from 05/01/22 showing EF of 60-65%, mild concentric LVH, mild AI, Mitral valve thickened, moderate posterior mitral valve leaflet prolapse, mild- moderate anterior mitral valve leaflet prolapse, mild MR. - CXR does not show pulmonary edema, and CTA chest is negative for PE or other infectious processes, so unknown why he is noted to be slightly hypoxic with O2 sats at 87%, possible deconditioning ? Will order incentive spirometry and flutter - Given lasix 40 mg IV in the ER, monitor strict I/Os, daily weights, no further lasix until assess the response - Hold antihypertensives but may continue metoprolol succinate 25 mg tomorrow, BP is currently stable at 140s/80s - Hypomagnesemia with mag of 1.5, will give 2 g IV (6) Acute respiratory failure with hypoxia: Plan: - Noted O2 sats at 87%, currently on 2 L with sats in low 90s, does not wear O2 at basline - CoVID negative - CXR and CTA chest without signs of acute infection - Follow blood cultures (7) Primary parkinsonism: Plan: - noted, continue namenda - PT/OT consults - Aspiration precautions (8) Dementia associated with Parkinson's disease: Plan: - Oriented to self, [facility], but does not know the date. - Attempt to reorient with family at bedside. No hx of behavioral disturbances per the family (9) Diabetes type 2, controlled: Plan: - Holding metformin, ISS with accuchecks achs - Check A1C with am labs, last was 5.5 on 03/22/22 (10) CKD (chronic kidney disease) stage 3, GFR 30-59 ml/min: Plan: - Stage 3a, will monitor with administration of lasix earlier today, hold on further diuretics - Renally reduce medication and avoid nephrotoxins DVT ppx: teds, heparin subq CODE: FULL Dispo: From home, lives with , likely to remain in the hospital x 2 days (11) Immunosuppressed status: History of Present Illness Chief Complaint: Chills, weakness, mild cough Primary Care Provider: Michael Hinton MD This is a 77 yo M with PMhx of CAD, status post CABG x3, HTN, HLD, DM type II, CKD stage III, parkinsonism, dementia, BPH, osteoarthritis, iron deficiency anemia who presents to the ER at request of his daughter. She reports that he had a low-grade fever of 100.3 at home today with associated weakness with difficulty ambulating with a walker, chills, shivering, and he has had a mild cough. He feels there is some phlegm to cough up but isn't coughing, ongoing for about 1 week timeframe and notices this in the morning when he first wakes up. He has recently been on Amoxicillin 500 mg TID x5 days (scheduled course for 10d) for right lower posterior molar infection and is scheduled to have this molar removed as an outpatient soon. His dentist did not want to pull it without antibiotics first. Pt notes this has been throbbing, and has been taking tylenol every 6 hours because of pain with the antibiotic at home for the past 5 days. Patient and daughter are present at bedside and they report that he is NOT physically active, walks minimally due to his Parkinsonism movements. He participates with PT once per week, and is seen by [facility] regularly. notes that last week his oxygen saturations dropped into the high 80s with ambulation but that it recovered when he was sitting still. Today his O2 sats dropped to 87% while at rest, and after being placed on 2 L improved into the high 90s. He does not wear any oxygen at baseline. After his previous hospitalization in the middle of April, his notes that oxygen was sent home however he ended up not needing this by the time he was discharged. He denies any current chest pain, palpitations, flutter, lightheadedness. He has been tolerating good p.o. intake and denies any abdominal complaints. He reports his last bowel movement was this morning. Denies any urinary symptoms other than needing to urinate twice during our conversation because of being given Lasix in the ER. He did not take any of his morning medications today. Denies any open wounds on his legs, toes or buttocks since being admitted in April. There is increased swelling in his right leg more so than the left at baseline, thinks it was several years swollen than normal today. Allergies Allergy/AdvReac Type Severity Reaction Status Date / Time YONATAN Inhibitors AdvReac Mild Cough Verified 07/05/22 15:07 Home Medications Medication Instructions Recorded Confirmed Type atorvastatin 40 mg tablet 40 mg PO QAM 09/02/18 07/05/22 History tamsulosin 0.4 mg capsule 0.4 mg PO HS #90 caps 12/11/19 07/05/22 Rx amantadine HCl 100 mg capsule 100 mg PO QAM 05/22/20 07/05/22 History aspirin 81 mg tablet,delayed 81 mg PO QAM 02/02/21 07/05/22 History release (Negar Low Dose Aspirin) pantoprazole 40 mg tablet,delayed 40 mg PO QAM 02/02/21 07/05/22 History release donepezil 10 mg tablet 10 mg PO HS 05/11/21 07/05/22 History triamterene 37.5 1 tab PO 5XWK 05/11/21 07/05/22 History mg-hydrochlorothiazide 25 mg tablet bupropion HCl 150 mg 24 hr tablet, 150 mg PO DAILY 06/17/21 07/05/22 History extended release fluocinonide 0.05 % topical 1 applic topical DAILY PRN after 06/17/21 07/05/22 History solution bathing metformin 500 mg tablet,extended 500 mg PO QAM 06/17/21 07/05/22 History release 24 hr dupilumab 300 mg/2 mL subcutaneous 300 mg subcut .every 2 weeks 03/03/22 07/05/22 History pen injector (Dupixent) escitalopram oxalate 20 mg tablet 20 mg PO QAM #90 tabs 03/29/22 07/05/22 Rx potassium chloride 20 mEq 20 meq PO 2XWK #30 tabs 04/15/22 07/05/22 Rx tablet,extended release metoprolol succinate 25 mg 25 mg PO QAM #90 tabs 04/19/22 07/05/22 Rx tablet,extended release 24 hr furosemide 40 mg tablet 40 mg PO 2XWK #30 tabs 05/19/22 07/05/22 Rx amoxicillin 500 mg tablet 500 mg PO TID 07/05/22 07/05/22 History cephalexin 500 mg capsule 500 mg PO BID 07/05/22 07/05/22 History 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 Diabetes type 2, controlled Diabetic ulcer of right heel associated with diabetes mellitus due to underlying condition, with fat layer exposed Dyslipidemia Fall GERD (gastroesophageal reflux disease) HTN (hypertension) HTN (hypertension) Lumbar spondylosis Moderate mitral regurgitation Orthostatic hypotension (07/2019) Peripheral arterial disease Primary parkinsonism Seasonal allergies Sensorineural hearing loss (SNHL) of both ears Sepsis due to group B Streptococcus (2017) 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 Father Hypertension, Onset Age: 40 at 40 Mother Hypertension COPD (chronic obstructive pulmonary disease) Diabetes Brother Allergies Asthma Denies family history of Prostate cancer Hearing loss No family history of adverse response to anesthesia No family history of bleeding disorder Heart disease Cancer Stroke Social History Smoking Status: Never smoker Hx Alcohol Use: No Hx Substance Use: No Preferred Language: [place] Communication Ability: Effective Patient Account Specialist Required: No Beliefs That Will Affect Care: None marital status: Current Living Situation: Spouse Current Living Situation Comment: Feels Safe at Home: Yes Assistive Devices: Walker Review of Systems Review of Systems: Constitutional: + fever and chills with shaking today, no sweats Eyes: No diplopia, no worsening or blurred vision ENT: normal hearing, no trouble swallowing Respiratory: As per HPI, mild morning cough,no sputum, no dyspnea at rest or on exertion, o2 sats noting to drop low but pt does not feel symptomatic Cardiovascular: No chest pain, tightness or palpitations Abdomen: No pain, nausea, vomiting, diarrhea or constipation Musculoskeletal: No joint pain, calf pain, swelling Neurologic: No weakness, numbness/tingling, or balance problems Psychiatric: No anxiety or depression Skin: No rash or itch Physical Exam Physical Exam: General: awake, alert, no apparent distress Head: Normocephalic, atraumatic ENT: PERRL, EOMI, no pharyngeal exudate, mucous membranes moist, + R mandibular molar is broken off, blackened, surrounding edema,+ tenderness with palpation of the mandible and slightly swollen. Other dentition intact Chest: Clear to auscultation, on room air, no adventitious breath sounds Cardiac: Regular rate and rhythm, no murmur, no JVD, normal peripheral pulses, good capillary refill Abdominal: NABS x 4 quadrants, soft, nondistended, nontender to palpation, no rebound or guarding Extremities: Normal inspection, no peripheral edema or erythema, calfs nontender to palpation Psych: Normal mood and affect Neuro: AAO to self, thinks he is in [facility], and that it is 2012. He is able to name the president. strength intact bilaterally and rated 4/5, no motor deficits, speech is clear, no peripheral sensory deficits Results & Data Results & Data ([facility]) Vital Signs (Past 12 Hours) Vital Signs Temp Pulse Pulse Resp BP BP Pulse Ox 07/05/22 14:00 92 H 18 123/74 98 07/05/22 13:53 92 H 16 99 07/05/22 12:49 99 H 16 95 07/05/22 12:49 96 07/05/22 12:40 100 H 18 97 07/05/22 11:54 107 H 18 96 07/05/22 11:54 18 96 07/05/22 11:53 100 H 18 173/74 H 96 07/05/22 11:53 07/05/22 11:11 111 H 18 167/86 H 96 07/05/22 11:10 96 07/05/22 10:25 37.2 C 111 H 29 H 177/75 H 87 L 07/05/22 10:25 37.2 C 111 H 29 H 177/75 H 87 L 07/05/22 10:25 87 L O2 Del Method O2 Flow Rate 07/05/22 14:00 Room Air 07/05/22 13:53 Room Air 07/05/22 12:49 Nasal Cannula 2 07/05/22 12:49 Nasal Cannula 2 07/05/22 12:40 Nasal Cannula 2 07/05/22 11:54 Nasal Cannula 2 07/05/22 11:54 Nasal Cannula 2 07/05/22 11:53 Nasal Cannula 2 07/05/22 11:53 Nasal Cannula 2 07/05/22 11:11 Nasal Cannula 2 07/05/22 11:10 Nasal Cannula 2 07/05/22 10:25 Room Air 0 07/05/22 10:25 Room Air 07/05/22 10:25 Room Air 0 Laboratory Results 07/05/22 11:39 Aerobic Blood Culture - Pending Blood Anaerobic Blood Culture - Pending 07/05/22 11:30 Aerobic Blood Culture - Pending Blood Anaerobic Blood Culture - Pending 07/05/22 07/05/22 07/05/22 Unknown 11:30 11:30 WBC RBC Hgb Hct MCV MCH MCHC RDW Std Deviation RDW Coeff of Anny Plt Count MPV Immature Gran % (Auto) Neut % (Auto) Lymph % (Auto) [place] % (Auto) Eos % (Auto) Baso % (Auto) Neut # (Auto) Lymph # (Auto) [place] # (Auto) Eos # (Auto) Baso # (Auto) Immature Gran # (Auto) PT INR APTT PTT Ratio Sodium Potassium Chloride Carbon Dioxide Anion Gap BUN Creatinine Est Cr Clr Drug Dosing Est GFR ( Amer) Est GFR (Non-Af Amer) BUN/Creatinine Ratio Glucose Lactate 1.5 Calcium Magnesium Total Bilirubin AST ALT Alkaline Phosphatase Troponin I High Sens B-Natriuretic Peptide 284 H Total Protein Albumin Globulin Albumin/Globulin Ratio SARS-CoV-2, RNA, NAAT NEGATIVE 07/05/22 07/05/22 07/05/22 10:37 10:37 10:37 WBC 6.71 RBC 2.91 L Hgb 9.4 L Hct 29.0 L MCV 99.7 MCH 32.3 MCHC 32.4 RDW Std Deviation 58.5 H RDW Coeff of Anny 16.3 H Plt Count 170 MPV 9.3 L Immature Gran % (Auto) 0.6 Neut % (Auto) 84.5 Lymph % (Auto) 10.7 [place] % (Auto) 3.7 Eos % (Auto) 0.4 Baso % (Auto) 0.1 Neut # (Auto) 5.66 Lymph # (Auto) 0.72 L [place] # (Auto) 0.25 Eos # (Auto) 0.03 Baso # (Auto) 0.01 Immature Gran # (Auto) 0.04 H PT 10.9 INR 1.0 APTT 22.0 PTT Ratio 0.8 Sodium 137 Potassium 4.1 Chloride 104 Carbon Dioxide 24 Anion Gap 9 BUN 17 Creatinine 1.19 Est Cr Clr Drug Dosing 49.9 Est GFR ( Amer) 67.4 Est GFR (Non-Af Amer) 58.2 BUN/Creatinine Ratio 14.3 Glucose 169 H Lactate Calcium 9.2 Magnesium 1.5 L Total Bilirubin 0.5 AST 16 ALT 11 Alkaline Phosphatase 106 H Troponin I High Sens 9.6 B-Natriuretic Peptide Total Protein 6.1 Albumin 4.1 Globulin 2.0 L Albumin/Globulin Ratio 2.0 SARS-CoV-2, RNA, NAAT Diagnostic Findings Chest X-Ray 07/05/22 10:58 XR chest 1V portable CLINICAL HISTORY: SEPSIS TECHNIQUE: Single frontal radiograph of the chest was obtained. Comparison: Comparison is made to chest radiographs of 922 FINDINGS: Median sternotomy wires are unchanged. Calcified aortic knob is seen, cardiomegaly is unchanged.. Prominence and cephalization of the vasculature is seen. There is blunting of the left costophrenic angle which may represent prominent epicardial fat versus small effusion. IMPRESSION: 1. Cardiomegaly and mild pulmonary edema. 2. Possible small left pleural effusion. ACT 112: Negative or not required by law. Electronically signed by: Jim Ivan M.D. 07/05/2022 11:32 AM Chest CTA 07/05/22 12:01 CT ANGIOGRAPHY OF THE CHEST, PULMONARY EMBOLUS PROTOCOL CLINICAL HISTORY: Shortness of breath. COMPARISON STUDY: Chest CT April 30, 2022. Chest radiograph performed earlier today. TECHNIQUE: Following IV administration of 111 mL of Optiray, helical axial images of the chest were obtained utilizing the pulmonary embolus protocol. Maximal intensity projections and sagittal and coronal reformats were viewed on an independent 3D workstation. IV contrast was administered without complication. Automated exposure control was utilized for the study. A dose lowering technique was utilized adhering to the principles of ALARA. CT DOSE: 491.24 mGycm FINDINGS: This exam is significantly compromised by respiratory motion. No central or lobar pulmonary emboli are identified. Remainder of the pulmonary arteries are suboptimally assessed on this exam. Cardiomegaly is noted. There are postoperative findings following median sternotomy and coronary artery bypass grafting. Mild dilatation of the ascending aorta, measuring 4 cm, is unchanged since prior CT. There is no thoracic aortic dissection. No p neumothorax or pleural effusion. There is no thoracic adenopathy. There is no consolidation to suggest pneumonia although lungs are suboptimally assessed due to respiratory motion. Linear opacities favor atelectasis. No acute fracture within the visualized bony thorax. Visualized portions of the upper abdomen are unremarkable. IMPRESSION: 1. Exam significantly compromised by respiratory motion, as described above. No pulmonary emboli identified. 2. Cardiomegaly. No thoracic aortic dissection. 3. No consolidation to suggest pneumonia. Linear opacities which favor atelectasis. ACT 112: Negative or not required by law. Electronically signed by: Calixto Bai M.D. 07/05/2022 2:00 PM Code Status & VTE Plan Code Status Full code - discussed with patient and family at bedside Supervising Physician Co-Signing Physician Notes I have seen and examined the patient and have discussed the case with the provider above. I agree with the assessment and plan as stated with the following exceptions. 77 yo M presents saying "I was dragged here." Concerned and daughter are at bedside and confirm he has been more weak and ill- appearing. Patient has dementia limiting history. He reports pain in his lower right jaw. There is no pain or significant lymphadenopathy in the submandibular space and no surrounding erythema, cellulitis or swelling. He is afebrile but reporting fever, pain, rigors at home recently and worsening despite oral antibiotics. Urine remains uncollected, chest imaging reveals no evidence of pneumonia. He appears fluid overloaded on exam with 2+ pitting edema to the mid thighs bilaterally, and he has dyspnea at rest with minimal exertion. As above, BNP mildly elevated and he was given Lasix 40mg IV in the ER. Patient adamantly refuses Michaud catheter but is ok with external catheter for strict I/Os. Otherwise CV: irregular rhythm, S1/2 heard without m/g/r, 2+ peripheral pulses and extremities warm and well perfused. Lung: crackles at bases bilaterally with good air flow and dyspnea with minimal exertion. Abd: protuberant, soft, NTND. Neuro: no gross focal deficit. Psych: poor historian, oriented to person and place but not time. Workup reveals normal WBC, chronic anemia wtih H/H 9.4/29 and normal PLT. Unremarkable BMP. Kidney function appears at baseline, repeat blood cultures (also with recent h/o salmonella bacteremia in April 2022) are pending. Mg 1.5, BNP 284. CT chest without PE or pneumonia. Notable linear opacities "which favor atelectasis." CT soft tissue neck reveals multiple dental caries, includes caries of the right submandibular molar with adjacent soft tissue stranding consistent with cellulitis and no overt abscess. No cervical LAD and no fluid collection within the nexk were seen. Agree with broadening antibiotics at this time to Rocephin/Flagyl and getting OMFS thoughts. Patient was originally scheduled with a general dentist for a tooth extraction, however, given the complexity and underlying medical comorbidities including immunosuppression with ongoing Dupixent injections for atopic dermatitis, this may be better served by OMFS. Will need to optimize him from a cardiac standpoint in the meantime. He has already had a significant response to Lasix given in the ER with 1L out net so far. Would hold and further diuretics until he is reassessed tomorrow. Jennifer Fishman DO [facility] Hospitalist (1) CHF (congestive heart failure) Heart failure chronicity: acute Heart failure type: diastolic Qualified Code(s): I50.31 - Acute diastolic (congestive) heart failure
[2022-07-05] MEDS: MAGNESIUM SULFATE / D5W 1 GM/100 ML BAG IV SCH (16:41)
--- NOTE | 2022-07-05 16:52 | CT Scan Report ---
CT OF THE NECK WITHOUT CONTRAST CLINICAL HISTORY: Evaluate for dental abscess right mandible. COMPARISON STUDY: CTA of the neck August 31, 2012. CT of the cervical spine 12/09/2019. TECHNIQUE: Axial images of the neck were obtained without IV contrast. Automated exposure control was utilized for the study. A dose lowering technique was utilized adhering to the principles of ALARA. FINDINGS: Postoperative findings within the cervical spine are incidentally noted. A lucency within t he anterior arch of C1 is unchanged since cervical spine CT December 09, 2019. Bilateral mastoid effu sions are unchanged since prior CT as well. There is no cervical lymphadenopathy. Epiglottis is any l. Parotid and submandibular glands are unremarkable. There is no soft tissue gas within the neck. Ev aluation is mildly compromised given lack of contrast. Note is made of multiple dental caries, includ ing carries of the right second mandibular molar. There is no adjacent abscess. There is mild adjacen t stranding consistent with cellulitis. Multiple dental amalgams are noted. IMPRESSION: 1. Multiple dental caries, including caries of the right second mandibular molar with adjacent soft t issue stranding consistent with cellulitis. No soft tissue abscess identified. 2. No cervical lymphadenopathy. No fluid collection within the neck. ACT 112: Negative or not required by law. Electronically signed by: Calixto Bai M.D. 07/05/2022 4:50 PM
[2022-07-05] MEDS ORDERED: GLUCOSE 10 TAB/TUBE PO PRN (18:57)
[2022-07-05] MEDS ORDERED: GLUCOSE 40% GEL 15 GM TUBE PO PRN (18:57)
[2022-07-05] MEDS ORDERED: GLUCAGON FOR INJ 1 MG VIAL SQ PRN (18:57)
[2022-07-05] MEDS ORDERED: DEXTROSE 50% 50 ML SYRINGE IV PRN (18:57)
[2022-07-05] MEDS ORDERED: ONDANSETRON INJ 2 MG/ML 2 ML VIAL IV PRN (18:57)
[2022-07-05] MEDS ORDERED: CARBOHYDRATES FOR HYPOGLYCEMIA PO PRN (18:57)
--- NOTE | 2022-07-05 19:23 | Pharmacy Report ---
Pharmacy PK ABX Note - Date of Service July 05, 2022 - Assessment and Plan Assessment 77 year old M receiving Vancomycin + Ceftriaxone + Metronidazole for treatment of possible early sepsis due to dental and lower extremity infections. * PMHx significant for T2DM, CKD, and MRSA infection. Recently on Amoxicillin and Cephalexin as an outpatient. * Afebrile. No leukocytosis. Renal fxn at baseline. * Cultures pending. Plan Vancomycin * Loading dose: 2000 mg IV x 1 * Maintenance dose: 1250 mg IV every 24 hours * Regimen is predicted to achieve target AUC/ARIA of 400-600 mg/L.hr * No level ordered at this time. If therapy extends beyond 48 hours, then will order a trough level Ceftriaxone * 2000 mg IV every 24 hours Metronidazole * 500 mg IV every 8 hours Pharmacy will continue to follow and will adjust dose/frequency as necessary. Thank you. Pharmacy has transitioned to AUC monitoring for vancomycin. AUC/ARIA is the preferred PK/PD target and is associated with decreased risk of nephrotoxicity compared to traditional trough targets.
[2022-07-05 20:13] LABS: Appearance Urine Clear (Clear); Bilirubin Urine Negative (Negative); Blood Urine Negative (Negative); Color Urine Yellow; Glucose Urine UA Negative (Negative); Ketones Urine Negative (Negative); Leukocyte Esterase Urine Negative (Negative); Nitrite Urine Negative (Negative); Protein Urine Negative (Negative); Specific Gravity Urine 1.018 (1.000-1.030); Urobilinogen Urine Negative (Negative)
[2022-07-05] MEDS: INSULIN ASPART PER UNIT SC SCH (20:37)
[2022-07-05] MEDS: cefTRIAXone SODIUM 2,000 MG in DEXTROSE 5% 50 ML IV SCH (20:37)
[2022-07-05] MEDS: metroNIDAZOLE 500 MG/100 ML BAG IV SCH (20:37)
[2022-07-05] MEDS: DONEPEZIL HCL 10 MG TAB PO SCH (20:38)
[2022-07-05] MEDS: HEPARIN SOD 5,000 UNIT/0.5 ML VIAL SQ SCH (20:38)
[2022-07-05] MEDS: TAMSULOSIN HCL 0.4 MG CAP PO SCH (20:38)
--- NOTE | 2022-07-05 21:25 | Oral/Maxillofacial Consult ---
Date of Consultation July 05, 2022 Assessment & Plan (1) Dental infection: (2) Immunosuppressed status: (3) Congestive heart failure: (4) SOB (shortness of breath): (5) Dementia associated with Parkinson's disease: History of Present Illness Attending Physician: Jennifer Fishman DO History of Present Illness Oral Maxillofacial Surgery Exam dental infection # 31 Present Complaint: Dental pain lower right jaw, had crown on tooth , crown fell off now decaying and abscessed acutly painful tooth with extreme tenderness in the lateral area. Admitted from ER this July 05, 2022. 77 yo M presents saying "I was dragged here." Concerned and daughter confirm he has been more weak and ill-appearing. Patient hasdementialimiting history. He reportspain in his lower right jaw. There is no pain or significant lymphadenopathy in the submandibular space and no surrounding erythema, cellulitis or swelling. He is afebrile butwife reporting fever, pain, rigors at home recently and worsening despite oral antibiotics. Heappears fluid overloaded on exam with 2+ pitting edema to the mid thighs bilaterally, and he has dyspnea at rest with minimal exertion. Workup reveals normal WBC, chronic anemia with H/H 9.4/29 and normal PLT. Unremarkable BMP. Kidney function appears at baseline, repeat blood cultures (also with recent h/o salmonella bacteremia in April 2022) are pending. Mg 1.5, BNP 284. CT soft tissue neck reveals multiple dental caries, includes caries of the right submandibular molar with adjacent soft tissue stranding consistent with cellulitis and no overt abscess. Agree with broadening antibiotics at this time toRocephin/[place] getting OMFSthoughts. Patient was originally scheduled with a general dentist for a tooth extraction, however, given the complexity and underlying medical comorbidities including immunosuppression with ongoing Dupixent injections for atopic dermatitis, this may be better served by OMFS. Will need to optimize him from a cardiac standpoint in the meantime. He has already had a significant response to Lasix given in the ER with 1L out net so far. Would hold and further diuretics until he is reassessed tomorrow. Oral Exam: Finding--Carious # 31, tender gingival tissue with deep pocket formation. Tooth #31 is the cause of the present issue and removal is clinical indicated. Imaging: CT OF THE NECK WITHOUT CONTRAST CLINICAL HISTORY: Evaluate for dental abscess right mandible. FINDINGS: Postoperative findings within the cervical spine are incidentally noted. A lucency within the anterior arch of C1 is unchanged since cervical spine CT December 09, 2019. Bilateral mastoid effusions are unchanged since prior CT as well. There is no cervical lymphadenopathy. Epiglottis is normal. Parotid and submandibular glands are unremarkable. There is no soft tissue gas within the neck. Evaluation is mildly compromised given lack of contrast. Note is made of multiple dental caries, including carries of the right second mandibular molar. There is no adjacent abscess. There is mild adjacent stranding consistent with cellulitis. Multiple dental amalgams are noted. IMPRESSION: 1. Multiple dental caries, including caries of the right second mandibular molar with adjacent soft tissue stranding consistent with cellulitis. No soft tissue abscess identified. 2. No cervical lymphadenopathy. No fluid collection within the neck. Soft tissue: Tenderness and acute pain upon palpation Muco-buccal area posterior mandibular area. floor of the mouth, tongue, hard/soft palate, posterior pharyngeal area all with in normal limits, no pathology or abnormal findings noted. Oral Care: Overall oral care is very good Occlusion: Class I TMJ exam: No pop, clicking, pain, good ROM, No history of TMJ injury or dysfunction Periodontal exam: Mild gingival tissue inflammation with no evidence of periodontal pathology. Head/Neck exam: Neck is supple, FROM, Able to extend and flex neck w/o difficulty, no masses, no abnormalities, no airway issues, ? evidence of sleep apnea. Treatment Plan: Consent signed and reviewed for extraction # 31 Patient is in pain and extraction of lower right molar is indicated PAU Set up with general anesthesia in hospital due to complexity of the procedure I reviewed the treatment plan and consent with the patient. Understanding was expressed. Time was given for questions regarding the surgery, risks and post op care. Discussed alternative to treatment--procedure as planned, Do not do surgery The following teeth are decayed and fractured and removal is indicated PAU:Lower right molar # 31 Risks discussed: Bleeding,Pain,swelling,infection, dry socket, delayed healing, nerve injury to face,lips,tongue,chin area which could be permanent (rare). TMJ, jaw stiffness, change in bite (rare), ear pain (referred). Sinus problems like fistula or infection. Need to leave a small root fragment in place to avoid injury to nerve or sinus. Relationship of teeth to nerve/sinus and risk of jaw fracture. Home care reviewed: tooth brushing, rinsing, follow up care with Dr Cervantes. diet=[id number]-[id number]-irrh dental. Discussed activity level,dental care in future Surgery to be set up once medically cleared Allergies Allergy/AdvReac Type Severity Reaction Status Date / Time YONATAN Inhibitors AdvReac Mild Cough Verified 07/05/22 15:07 Home Medications Medication Instructions Recorded Confirmed Type atorvastatin 40 mg tablet 40 mg PO QAM 09/02/18 07/05/22 History tamsulosin 0.4 mg capsule 0.4 mg PO HS #90 caps 12/11/19 07/05/22 Rx amantadine HCl 100 mg capsule 100 mg PO QAM 05/22/20 07/05/22 History aspirin 81 mg tablet,delayed 81 mg PO QAM 02/02/21 07/05/22 History release (Negar Low Dose Aspirin) pantoprazole 40 mg tablet,delayed 40 mg PO QAM 02/02/21 07/05/22 History release donepezil 10 mg tablet 10 mg PO HS 05/11/21 07/05/22 History triamterene 37.5 1 tab PO 5XWK 05/11/21 07/05/22 History mg-hydrochlorothiazide 25 mg tablet bupropion HCl 150 mg 24 hr tablet, 150 mg PO DAILY 06/17/21 07/05/22 History extended release fluocinonide 0.05 % topical 1 applic topical DAILY PRN after 06/17/21 07/05/22 History solution bathing metformin 500 mg tablet,extended 500 mg PO QAM 06/17/21 07/05/22 History release 24 hr dupilumab 300 mg/2 mL subcutaneous 300 mg subcut .every 2 weeks 03/03/22 07/05/22 History pen injector (Dupixent) escitalopram oxalate 20 mg tablet 20 mg PO QAM #90 tabs 03/29/22 07/05/22 Rx potassium chloride 20 mEq 20 meq PO 2XWK #30 tabs 04/15/22 07/05/22 Rx tablet,extended release metoprolol succinate 25 mg 25 mg PO QAM #90 tabs 04/19/22 07/05/22 Rx tablet,extended release 24 hr furosemide 40 mg tablet 40 mg PO 2XWK #30 tabs 05/19/22 07/05/22 Rx amoxicillin 500 mg tablet 500 mg PO TID 07/05/22 07/05/22 History cephalexin 500 mg capsule 500 mg PO BID 07/05/22 07/05/22 History Patient History Medical History Adverse reaction to anesthetic agent Anxiety Arthritis BPH (benign prostatic hyperplasia) Carpal tunnel syndrome Cataracts, bilateral CHI (closed head injury) CKD (chronic kidney disease) stage 3, GFR 30-59 ml/min 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 Diabetes type 2, controlled Diabetic ulcer of right heel associated with diabetes mellitus due to underlying condition, with fat layer exposed Dyslipidemia Fall GERD (gastroesophageal reflux disease) HTN (hypertension) HTN (hypertension) Lumbar spondylosis Moderate mitral regurgitation Orthostatic hypotension (07/2019) Peripheral arterial disease Primary parkinsonism Seasonal allergies Sensorineural hearing loss (SNHL) of both ears Sepsis due to group B Streptococcus (2017) 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 Father Hypertension, Onset Age: 40 at 40 Mother Hypertension COPD (chronic obstructive pulmonary disease) Diabetes Brother Allergies Asthma Denies family history of Prostate cancer Hearing loss No family history of adverse response to anesthesia No family history of bleeding disorder Heart disease Cancer Stroke Social History Smoking Status: Never smoker Hx Alcohol Use: No Hx Substance Use: No Preferred Language: Turkish Communication Ability: Effective Reporting Coordinator Required: No Beliefs That Will Affect Care: Druze Druze Beliefs: TEMPLE-REQUEST TO SPEAK WITH CLERGY marital status: Current Living Situation: Spouse and Other Current Living Situation Comment: lives at home with and daughter Feels Safe at Home: Yes Safety Concerns: Feels Safe At This Time Assistive Devices: Cane and Walker Results & Data ([facility]) Vital Signs (Past 12 Hours) Vital Signs Temp Pulse Pulse Resp BP BP Pulse Ox 07/05/22 18:15 89 15 96 07/05/22 15:10 92 H 16 142/80 H 97 07/05/22 14:00 92 H 18 123/74 98 07/05/22 13:53 92 H 16 99 07/05/22 12:49 99 H 16 95 07/05/22 12:49 96 07/05/22 12:40 100 H 18 97 07/05/22 11:54 107 H 18 96 07/05/22 11:54 18 96 07/05/22 11:53 100 H 18 173/74 H 96 07/05/22 11:53 07/05/22 11:11 111 H 18 167/86 H 96 07/05/22 11:10 96 07/05/22 10:25 37.2 C 111 H 29 H 177/75 H 87 L 07/05/22 10:25 37.2 C 111 H 29 H 177/75 H 87 L 07/05/22 10:25 87 L O2 Del Method O2 Flow Rate 07/05/22 18:15 Nasal Cannula 2 07/05/22 15:10 Nasal Cannula 2 07/05/22 14:00 Nasal Cannula 2 07/05/22 13:53 Room Air 07/05/22 12:49 Nasal Cannula 2 07/05/22 12:49 Nasal Cannula 2 07/05/22 12:40 Nasal Cannula 2 07/05/22 11:54 Nasal Cannula 2 07/05/22 11:54 Nasal Cannula 2 07/05/22 11:53 Nasal Cannula 2 07/05/22 11:53 Nasal Cannula 2 07/05/22 11:11 Nasal Cannula 2 07/05/22 11:10 Nasal Cannula 2 07/05/22 10:25 Room Air 0 07/05/22 10:25 Room Air 07/05/22 10:25 Room Air 0 PG Care Time/CCT Total # of Minutes Spent Total Time Spent with Patient: Total time spent is greater than 50% in coordination of care (as documented) at patient's floor/unit and/or counseling patient: Coding Level of Care Code 27493 Initial Inpt Care Lvl 2 Diagnoses Dental infection K04.7 Immunosuppressed status D84.9 Congestive heart failure I50.9 SOB (shortness of breath) R06.02 Dementia associated with Parkinson's disease G20; F02.80
[2022-07-06] MEDS: metroNIDAZOLE 500 MG/100 ML BAG IV SCH ×3 (05:25→20:11)
[2022-07-06] MEDS: VANCOMYCIN HCL 1,250 MG in SODIUM CHLORIDE 0.9% 250 ML IV SCH (05:26)
[2022-07-06 07:18] LABS: Hematocrit (blood only) 24.4 % (40.1-51.0); Hemoglobin 7.8 g/dl (14.0-18.0); Mean Corpuscular Hemoglobin 32.6 pg (25.0-34.0); Mean Corpuscular Volume 102.1 fL (80.0-100.0); Mean Platelet Volume 9.7 fL (9.4-12.4); Platelet Count 137 K/uL (130-400); RDW Coefficient of Variation 16.2 % (11.5-14.5); Red Blood Count 2.39 M/uL (4.63-6.08); White Blood Count 9.81 K/ul (4.8-10.8)
[2022-07-06 07:41] LABS: BUN Creatinine Ratio 17.6 (10-20); Calcium 8.7 mg/dl (8.5-10.1); Creatinine Clr Calc Pharmacy 40.2 ml/min; Est GFR (African American) 51.8 ml/min; Est GFR (Non-African American) 44.7 ml/min; Magnesium 2.2 mg/dl (1.7-2.4); Potassium 4.5 mmol/L (3.5-5.1)
[2022-07-06 07:51] LABS: Estimated Average Glucose 97 mg/dl
[2022-07-06] MEDS: ATORVASTATIN 40 MG TAB PO SCH (08:09)
[2022-07-06] MEDS: ASPIRIN 81 MG ECTAB PO SCH (08:09)
[2022-07-06] MEDS: PANTOprazole 40 MG TAB PO SCH (08:09)
[2022-07-06] MEDS: buPROPion XL 150 MG TABCR PO SCH (08:09)
[2022-07-06] MEDS: ESCITALOPRAM OXALATE 20 MG TAB PO SCH (08:09)
[2022-07-06] MEDS: METOPROLOL SUCC 25MG EXT REL TAB PO SCH (08:09)
[2022-07-06] MEDS: AMANTADINE HCL 100 MG CAPSULE PO SCH (08:10)
[2022-07-06] MEDS: HEPARIN SOD 5,000 UNIT/0.5 ML VIAL SQ SCH ×2 (08:15→21:04)
[2022-07-06] MEDS: INSULIN ASPART PER UNIT SC SCH ×4 (08:16→21:02)
--- NOTE | 2022-07-06 08:44 | Anesthesiology Consultation ---
Date of Service July 06, 2022 Assessment & Plan (1) Encounter for pre-operative examination: Chart Review Chart Review: Acceptable Risk for Surgery and Patient NOT seen in Pre Admission Testing Possibility patient has some degree of mild CHF given overall clinical picture but given urgent nature of procedure with active infection septic picture will limit fluid and aggressively support hemodynamics in OR. Hospitalist note 07/05/22: (5) Coronary artery disease: Plan: - Possible that he is slightly volume up with edema of legs, no JVD - Last Echo from 05/01/22 showing EF of 60-65%, mild concentric LVH, mild AI, Mitral valve thickened, moderate posterior mitral valve leaflet prolapse, mild- moderate anterior mitral valve leaflet prolapse, mild MR. - CXR does not show pulmonary edema, and CTA chest is negative for PE or other infectious processes, so unknown why he is noted to be slightly hypoxic with O2 sats at 87%, possible deconditioning ? Will order incentive spirometry and flutter Consults Requested none History Surgery Operation Date: 07/06/22 07:00 Proposed Procedures p Extraction of Abscess Tooth #31 - Layo Cervantes DMD Height/Weight Height: 5 ft 5 in Weight: 80.286 kg Allergies Allergy/AdvReac Type Severity Reaction Status Date / Time YONATAN Inhibitors AdvReac Mild Cough Verified 07/05/22 15:07 Medications Home Medications Medication Instructions Recorded Confirmed Last Taken atorvastatin 40 mg tablet 40 mg PO QAM 09/02/18 07/05/22 07/04/22 tamsulosin 0.4 mg capsule 0.4 mg PO HS #90 caps 12/11/19 07/05/22 07/04/22 amantadine HCl 100 mg capsule 100 mg PO QAM 05/22/20 07/05/22 07/04/22 aspirin 81 mg tablet,delayed 81 mg PO QAM 02/02/21 07/05/22 07/04/22 release (Negar Low Dose Aspirin) pantoprazole 40 mg tablet,delayed 40 mg PO QAM 02/02/21 07/05/22 07/04/22 release donepezil 10 mg tablet 10 mg PO HS 05/11/21 07/05/22 07/04/22 triamterene 37.5 1 tab PO 5XWK 05/11/21 07/05/22 07/04/22 mg-hydrochlorothiazide 25 mg tablet bupropion HCl 150 mg 24 hr tablet, 150 mg PO DAILY 06/17/21 07/05/22 07/04/22 extended release fluocinonide 0.05 % topical 1 applic topical DAILY PRN after 06/17/21 07/05/22 Unknown solution bathing metformin 500 mg tablet,extended 500 mg PO QAM 06/17/21 07/05/22 07/04/22 release 24 hr dupilumab 300 mg/2 mL subcutaneous 300 mg subcut .every 2 weeks 03/03/22 07/05/22 07/04/22 pen injector ([employer]) escitalopram oxalate 20 mg tablet 20 mg PO QAM #90 tabs 03/29/22 07/05/22 07/04/22 potassium chloride 20 mEq 20 meq PO 2XWK #30 tabs 04/15/22 07/05/22 07/01/22 tablet,extended release metoprolol succinate 25 mg 25 mg PO QAM #90 tabs 04/19/22 07/05/22 07/04/22 tablet,extended release 24 hr furosemide 40 mg tablet 40 mg PO 2XWK #30 tabs 05/19/22 07/05/22 07/01/22 amoxicillin 500 mg tablet 500 mg PO TID 07/05/22 07/05/22 07/04/22 cephalexin 500 mg capsule 500 mg PO BID 07/05/22 07/05/22 Unknown Active Medications Generic Name Dose Route Start Last Admin Trade Name Freq PRN Reason Stop Dose Admin Amantadine HCl 100 mg 07/06/22 09:00 07/06/22 08:10 Amantadine Hcl 100 Mg Capsule PO 08/05/22 08:59 100 mg QAM JEANETH Administration Aspirin 81 mg 07/06/22 09:00 07/06/22 08:09 Aspirin 81 Mg Ectab PO 08/05/22 08:59 81 mg QAM JEANETH Administration Atorvastatin Calcium 40 mg 07/06/22 09:00 07/06/22 08:09 Atorvastatin 40 Mg Tab PO 08/05/22 08:59 40 mg QAM JEANETH Administration Bupropion HCl 150 mg 07/06/22 09:00 07/06/22 08:09 Bupropion Xl 150 Mg Tabcr PO 08/05/22 08:59 150 mg DAILY JEANETH Administration Donepezil HCl 10 mg 07/05/22 21:00 07/05/22 20:38 Donepezil Hcl 10 Mg Tab PO 08/04/22 20:59 10 mg HS JEANETH Administration Escitalopram Oxalate 20 mg 07/06/22 09:00 07/06/22 08:09 Escitalopram Oxalate 20 Mg Tab PO 08/05/22 08:59 20 mg QAM JEANETH Administration Heparin Sodium (Porcine) 5,000 units 07/05/22 21:00 07/06/22 08:15 Heparin Sod 5,000 Unit/0.5 Ml Vial SQ 08/04/22 20:59 5,000 units Q12 JEANETH Administration Ceftriaxone Sodium 2,000 mg/ 70 mls @ 100 mls/hr 07/05/22 20:00 07/05/22 21:24 Dextrose IV 07/15/22 19:59 Infused Q24H JEANETH Infusion Protocol Metronidazole 500 mg in 100 mls @ 100 mls/hr 07/05/22 20:00 07/06/22 06:45 Flagyl IV 07/15/22 19:59 Infused Q8H JEANETH Infusion Vancomycin HCl 1,250 mg/ 275 mls @ 200 mls/hr 07/06/22 06:00 07/06/22 07:30 Sodium Chloride IV 07/16/22 05:59 Infused Q24H JEANETH Infusion Protocol Insulin Aspart 0 units 07/05/22 21:00 07/06/22 08:16 Insulin Aspart Per Unit SC 08/04/22 20:59 1 units ACHS JEANETH Administration Metoprolol Succinate 25 mg 07/06/22 09:00 07/06/22 08:09 Metoprolol Succ 25mg Ext Rel Tab PO 08/05/22 08:59 25 mg QAM JEANETH Administration Pantoprazole Sodium 40 mg 07/06/22 09:00 07/06/22 08:09 Pantoprazole 40 Mg Tab PO 08/05/22 08:59 40 mg QAM JEANETH Administration Tamsulosin HCl 0.4 mg 07/05/22 21:00 07/05/22 20:38 Tamsulosin Hcl 0.4 Mg Cap PO 08/04/22 20:59 0.4 mg HS JEANETH Administration Past Medical History Medical History Adverse reaction to anesthetic agent Anxiety Arthritis BPH (benign prostatic hyperplasia) Carpal tunnel syndrome Cataracts, bilateral CHI (closed head injury) CKD (chronic kidney disease) stage 3, GFR 30-59 ml/min 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 Diabetes type 2, controlled Diabetic ulcer of right heel associated with diabetes mellitus due to underlying condition, with fat layer exposed Dyslipidemia Fall GERD (gastroesophageal reflux disease) HTN (hypertension) HTN (hypertension) Lumbar spondylosis Moderate mitral regurgitation Orthostatic hypotension (07/2019) Peripheral arterial disease Primary parkinsonism Seasonal allergies Sensorineural hearing loss (SNHL) of both ears Sepsis due to group B Streptococcus (2018) 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 Father Hypertension, Onset Age: 40 at 40 Mother Hypertension COPD (chronic obstructive pulmonary disease) Diabetes Brother Allergies Asthma Denies family history of Prostate cancer Hearing loss No family history of adverse response to anesthesia No family history of bleeding disorder Heart disease Cancer Stroke Past Surgical History Surgical History H/O eye surgery H/O foot surgery History of neck surgery History of right hip replacement S/P triple vessel bypass (2011) S/P wrist surgery Social History Smoking Status: Never smoker Hx Alcohol Use: No Alcohol type: beer alcohol intake frequency: holidays/special occasions only Hx Substance Use: No substance use type: marijuana Substance Use Type Other:: had medical marijuana card Last Used Substance Other:: did not ask when last used Physical Exam Vital Signs Last Vital Signs Temp 36.4 C L 07/06/22 06:26 Pulse 71 07/06/22 06:26 Resp 18 07/06/22 06:26 BP 147/71 H 07/06/22 06:26 Pulse Ox 96 07/06/22 06:26 O2 Del Method 07/06/22 06:26 O2 Flow Rate 2 07/06/22 06:26 Testing Laboratory Results 07/06/22 06:26 07/06/22 06:26 PT 10.9 Seconds (9.0-12.0) 07/05/22 10:37 INR 1.0 (0.9-1.1) 07/05/22 10:37 APTT 22.0 Seconds (21.0-31.0) 07/05/22 10:37 Hemoglobin A1c 5.0 % (4.5-5.6) 07/06/22 06:26 Urine Color Yellow 07/05/22 19:30 Urine Appearance Clear (Clear) 07/05/22 19:30 Urine pH 5.0 (4.5-7.5) 07/05/22 19:30 Ur Specific Melvin 1.018 (1.000-1.030) 07/05/22 19:30 Urine Protein Negative (Negative) 07/05/22 19:30 Urine Glucose (UA) Negative (Negative) 07/05/22 19:30 Urine Ketones Negative (Negative) 07/05/22 19:30 Urine Nitrite Negative (Negative) 07/05/22 19:30 Ur Leukocyte Esterase Negative (Negative) 07/05/22 19:30 07/06/22 07:46 POC Glucose 187 H Electrocardiogram Date: 07/05/22 DICTATED BY:Tonio Ernandez MD Test Reason : Blood Pressure : / mmHG Vent. Rate : 118 BPM Atrial Rate : 125 BPM P-R Int : 000 ms QRS Dur : 094 ms QT Int : 342 ms P-R-T Axes : 000 -40 113 degrees QTc Int : 479 ms Sinus tachycardia with frequent Premature atrial complexes and Premature ventricular complexes Left axis deviation Incomplete right bundle branch block Cannot rule out Anterior infarct (cited on or before 30-APR-2022) Abnormal ECG When compared with ECG of 03-MAY-2022 23:40, No significant change Chest X-Ray Date: 07/05/22 XR chest 1V portable CLINICAL HISTORY: SEPSIS TECHNIQUE: Single frontal radiograph of the chest was obtained. Comparison: Comparison is made to chest radiographs of 922 FINDINGS: Median sternotomy wires are unchanged. Calcified aortic knob is seen, cardiomegaly is unchanged.. Prominence and cephalization of the vasculature is seen. There is blunting of the left costophrenic angle which may represent prominent epicardial fat versus small effusion. IMPRESSION: 1. Cardiomegaly and mild pulmonary edema. 2. Possible small left pleural effusion. Echocardiogram Date: 05/01/22 EF 60-65% Mild LVH No AV stenosis Mild AR Moderate posterior mitral valve leaflet prolapse, mild to moderate anterior mitral valve leaflet prolapse. Mild MR Other Testing CT OF THE NECK WITHOUT CONTRAST CLINICAL HISTORY: Evaluate for dental abscess right mandible. COMPARISON STUDY: CTA of the neck August 31, 2012. CT of the cervical spine 12/09/2019. TECHNIQUE: Axial images of the neck were obtained without IV contrast. Automated exposure control was utilized for the study. A dose lowering technique was utilized adhering to the principles of ALARA. FINDINGS: Postoperative findings within the cervical spine are incidentally noted. A lucency within the anterior arch of C1 is unchanged since cervical spine CT December 09, 2019. Bilateral mastoid effusions are unchanged since prior CT as well. There is no cervical lymphadenopathy. Epiglottis is normal. Parotid and submandibular glands are unremarkable. There is no soft tissue gas within the neck. Evaluation is mildly compromised given lack of contrast. Note is made of multiple dental caries, including carries of the right second mandibular molar. There is no adjacent abscess. There is mild adjacent stranding consistent with cellulitis. Multiple dental amalgams are noted. IMPRESSION: 1. Multiple dental caries, including caries of the right second mandibular molar with adjacent soft tissue stranding consistent with cellulitis. No soft tissue abscess identified. 2. No cervical lymphadenopathy. No fluid collection within the neck.
[2022-07-06] MEDS ORDERED: DEXAMETHASONE SOD INJ 4 MG/ML VIAL ONE (08:46)
[2022-07-06] MEDS ORDERED: LIDOCAINE 2% MPF LOCAL 5 ML VIAL INFIL ONE (08:46)
[2022-07-06] MEDS ORDERED: fentaNYL citrate 100 MCG/2 ML VIAL ONE (08:46)
[2022-07-06] MEDS ORDERED: PROPOFOL IV EMULSION 10 MG/ML 20 ML VIAL IV ONE (08:46)
[2022-07-06] MEDS ORDERED: GLYCOPYRROLATE 0.2 MG/ML VIAL ONE (08:46)
[2022-07-06] MEDS ORDERED: SUCCINYLCHOLINE CHLORIDE 20 MG/ML 10 ML VIAL IV ONE (08:46)
[2022-07-06] MEDS ORDERED: ROCURONIUM BROMIDE 10 MG/ML 5 ML VIAL IV ONE (08:46)
[2022-07-06] MEDS ORDERED: ONDANSETRON INJ 2 MG/ML 2 ML VIAL ONE (08:46)
[2022-07-06] MEDS ORDERED: BUPIVACAINE/EPINEPHRINE 0.5% 1:200,000 1.8 ML CARP ONE (08:57)
[2022-07-06] MEDS ORDERED: CHLORHEXIDINE GLUCONATE 0.12% 480 ML ONE (08:57)
--- NOTE | 2022-07-06 09:44 | History & Physical Bridge Note ---
Date of Service July 06, 2022 History & Physical Bridge Note I have examined the patient, reviewed the History & Physical and in the interval since the performance of the History & Physical I have noted the following changes of clinical significance: no changes noted OK for procedure today
[2022-07-06] MEDS ORDERED: ONDANSETRON INJ 2 MG/ML 2 ML VIAL IV PRN (09:45)
[2022-07-06] MEDS ORDERED: fentaNYL citrate 100 MCG/2 ML VIAL IV PRN (09:45)
[2022-07-06] MEDS ORDERED: ATROPINE SULFATE 0.1 MG/ML 10ML SYR IV PRN (09:45)
[2022-07-06] MEDS ORDERED: ePHEDrine sulfate 50 MG/ML AMP IV PRN (09:45)
[2022-07-06] MEDS ORDERED: PHENYLEPHRINE 100MCG/ML 5ML SYR ONE (10:07)
[2022-07-06] MEDS ORDERED: CHLORHEXIDINE GLUCONATE 0.12% 480 ML MT PRN (10:27)
--- NOTE | 2022-07-06 10:39 | Operative Report ---
PG Post Operative Report Pre & Post Diagnosis Operation Date: 07/06/22 07:00 Pre-Op Diagnosis: Abcessed and Fractured #31 Tooth Post-Op Diagnosis: Abcessed and Fractured #31 Tooth I identified the patient and participated in the time-out.: Yes Procedure Operation Date: 07/06/22 07:00 Actual Procedures p Extraction of Abscess Tooth #31 - Layo Cervantes, DMD Surgeon Layo Cervantes, DMD Wire Hanger none Estimated Blood Loss 2 Findings Consistent with Post-Op Diagnosis abscessed and grossly fractured # 31 Specimens none Drains none Anesthesia Type General Complications none Indications severe pain with infection # 31 Description of Procedure Pre-op= infected # 31 [id number] --surgical extraction of fractured tooth K08.89 and K04.7 Once cleared for surgery general anesthesia was achieved, the eyes were protected by the anesthesia dept criteria.. A time out was take for patient ID, antibiotics, equipment and position verification once all agreed the procedure began. Local anesthesia was given into each area using Marcaine with a vasoconstrictor ( 1.8 ml per site). A throat pack was placed after the oral cavity was irrigated with saline. Once a surgical level of anesthesia was obtained and the local anesthesia was given time for the blocks the surgery was started. I turned my attention to the upper wisdom teeth first. Lower infected and abscessed # 31 ( [id number] ) The full thick Muco-periosteal flap was made on the external oblique ridge to avoid the lingual nerve. The flap was reflected to expose the fractured tooth. I was able to split the tooth with a tooth splitting forceps.The lingual plate was protected. The tooth was removed with a 301 elevator and angled elevators to remove the 2 roots. I now curetted the the socket and irrigated the socket. The nerve was intact, there was no bleeding. The bone was trimmed, smoothed and the flap was closed with a few 2-0 chromic sutures. I inspected the sites to insure all bleeding was controlled. I removed the throat pack and suctioned the throat. A gauze pressure dressings was placed. All instrument and sponge count was correct. the patient was allowed to awake from the anesthesia. Once full awake the anesthesia tube was removed and the patient was taken to the recovery room with all vital sign stable. The patient tolerated the surgery very well. I will follow the patient in my office, Rx and instructions will be given upon discharge. I attest to the content of the Intraoperative Record and any orders documented therein. Any exceptions are noted below.
--- NOTE | 2022-07-06 13:21 | Anesthesiology Progress Note ---
Date of Service July 06, 2022 Anesthesia Post Procedure Vital Signs Vital Signs: Temp Pulse Pulse Pulse Resp BP BP 07/06/22 12:15 69 07/06/22 12:03 76 16 114/68 07/06/22 11:32 36.4 C L 75 16 109/63 07/06/22 11:15 36.5 C 79 18 110/63 07/06/22 11:47 07/06/22 08:00 68 07/06/22 11:05 36.5 C 83 20 103/55 L 07/06/22 10:55 81 23 111/60 07/06/22 10:45 86 24 106/56 L 07/06/22 10:39 36.0 C L 96 H 22 109/61 07/06/22 09:07 36.9 C 77 20 123/65 07/06/22 06:26 36.4 C L 71 18 147/71 H 07/06/22 02:15 36.7 C 72 18 122/70 07/05/22 18:54 87 07/05/22 22:17 86 07/05/22 22:39 36.8 C 84 20 124/68 07/05/22 19:00 07/05/22 19:00 36.5 C 84 17 126/48 L 07/05/22 18:15 89 15 07/05/22 15:10 92 H 16 142/80 H 07/05/22 14:00 92 H 18 123/74 07/05/22 13:53 92 H 16 Pulse Ox O2 Del Method O2 Flow Rate 07/06/22 12:15 07/06/22 12:03 95 Nasal Cannula 2 07/06/22 11:32 95 Nasal Cannula 2 07/06/22 11:15 98 Nasal Cannula 2 07/06/22 11:47 Nasal Cannula 07/06/22 08:00 07/06/22 11:05 94 Room Air 07/06/22 10:55 100 Oxymask 4 07/06/22 10:45 100 Oxymask 4 07/06/22 10:39 99 Oxymask 6 07/06/22 09:07 100 Nasal Cannula 2 07/06/22 06:26 96 Nasal Cannula 2 07/06/22 02:15 96 07/05/22 18:54 07/05/22 22:17 07/05/22 22:39 96 Room Air 07/05/22 19:00 Nasal Cannula 2 07/05/22 19:00 97 Nasal Cannula 2 07/05/22 18:15 96 Nasal Cannula 2 07/05/22 15:10 97 Nasal Cannula 2 07/05/22 14:00 98 Nasal Cannula 2 07/05/22 13:53 99 Room Air Transfer of Care Handoff Completed per policy Notes Mental Status: alert / awake / arousable and participated in evaluation Patient Amnestic to Procedure: Yes Nausea / Vomiting: adequately controlled Pain: adequately controlled Airway Patency, RR, SpO2: stable & adequate BP & HR: stable & adequate Hydration State: stable & adequate Anesthetic Complications: no major complications apparent and Pt Satisfied with anesthetic care
--- NOTE | 2022-07-06 15:48 | Hospitalist Progress Note ---
Date of Service July 06, 2022 Assessment & Plan (1) Dental infection: Plan: - Concern for early phase sepsis with fever, chills, weakness, rigors, pain in mouth. Pt has been taking tylenol around the clock x 5 days with antibiotic for pain so likely is masking fever. - Pt has been on amoxicillin 500 mg TID x 5 days (prescribed 10 day course). Also is on keflex 500 mg BID for lower extremity ulcerations + MRSA from last admission prophylactically - Obtain CT soft tissue neck wo contrast-1. Multiple dental caries, including caries of the right second mandibular molar with adjacent soft tissue stranding consistent with cellulitis. No soft tissue abscess identified. 2. No cervical lymphadenopathy. No fluid collection within the neck. 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 -Denies any pain following the surgery and has been tolerating clears Chronic iron deficiency anemia Has been getting intravenous iron infusion as an outpatient and also received b lood transfusion in the past IV iron was given last month Hemoglobin remains low at 7.8 Will not give any more iron during this admission but monitor CBC and if the hemoglobin is below 7 we will give transfusion (2) CHF (congestive heart failure): Plan: - Possible that he is slightly volume up with edema of legs, no JVD - Last Echo from 05/01/22 showing EF of 60-65%, mild concentric LVH, mild AI, Mitral valve thickened, moderate posterior mitral valve leaflet prolapse, mild- moderate anterior mitral valve leaflet prolapse, mild MR. - CXR does not show pulmonary edema, and CTA chest is negative for PE or other infectious processes, so unknown why he is noted to be slightly hypoxic with O2 sats at 87%, possible deconditioning ? Will order incentive spirometry and flutter - Given lasix 40 mg IV in the ER, monitor strict I/Os, daily weights, no further lasix until assess the response - Hold antihypertensives but may continue metoprolol succinate 25 mg tomorrow, BP is currently stable at 140s/80s - Hypomagnesemia with mag of 1.5, will give 2 g IV -He is clinically better today -We will continue his home dose of Lasix from tomorrow (3) HTN (hypertension): Plan: Blood pressure is controlled (4) Dyslipidemia: (5) Coronary artery disease: Plan: No acute cardiac pain (6) Acute respiratory failure with hypoxia: Plan: - Noted O2 sats at 87%, currently on 2 L with sats in low 90s, does not wear O2 at basline - CoVID negative - CXR and CTA chest without signs of acute infection -Breathing is not any worse (7) Primary parkinsonism: Plan: - noted, continue namenda - PT/OT consults - Aspiration precautions (8) Dementia associated with Parkinson's disease: Plan: - [facility]ed [facility] self[facility] [place], but does not know the date. - Attempt to reorient with family at bedside. No hx of behavioral disturbances per the family (9) Diabetes type 2, controlled: Plan: - Holding metformin, ISS with accuchecks achs - Check A1C with am labs, last was 5.5 on 03/22/22 (10) CKD (chronic kidney disease) stage 3, GFR 30-59 ml/min: Plan: - Stage 3a, will monitor with administration of lasix earlier today, hold on further diuretics - Renally reduce medication and avoid nephrotoxins -Creatinine increased to 1.48 -We will monitor DVT ppx: teds, heparin subq CODE: FULL Dispo: From home, lives with , likely to remain in the hospital x 2 days Discussed with the and the daughter (11) Immunosuppressed status: Admission and Anticipated Discharge Date Admission Date: July 05, 2022 Subjective 07/06/2022 The patient was seen and examined in medical telemetry unit He is status post extraction of abscessed tooth #31 Denies any pain and has been tolerating clears No other symptoms but remains generally weak Review of Systems Review of Systems: All systems reviewed and are unremarkable except as noted below Physical Exam Physical Exam: Lying in bed comfortably Constitutional: well developed, well nourished, + ill appearing and + obese Eyes: PERRL, conjunctivae normal, anicteric sclerae ENMT: external ear and nose normal, oropharynx normal Neck: trachea midline, no thyromegaly Respiratory: + respiratory distress (Minimal distress at rest) Auscultation: + diminished lung sounds and + crackles (Occasional crackles bibasally) Cardiovascular: Rate/Rhythm: regular rate and regular rhythm; not tachycardic Heart Sounds: normal S1 and normal S2; no murmur Extremities: + edema (1+ edema bilaterally) Gastrointestinal (Abdomen): Inspection/Auscultation: normal bowel sounds; abdomen not distended Percussion/Palpation: abdomen soft; abdomen nontender Musculoskeletal: No acute arthritis in any joint Neurologic: Alert, awake and oriented x3 Lymphatic: no cervical or axillary lymphadenopathy Results & Data Results & Data ([facility]) Vital Signs (Past 12 Hours) Vital Signs Temp Pulse Pulse Pulse Resp BP BP 07/06/22 15:02 80 07/06/22 14:55 07/06/22 12:15 69 07/06/22 12:03 76 16 114/68 07/06/22 11:32 36.4 C L 75 16 109/63 07/06/22 11:15 36.5 C 79 18 110/63 07/06/22 11:47 07/06/22 08:00 68 07/06/22 11:05 36.5 C 83 20 103/55 L 07/06/22 10:55 81 23 111/60 07/06/22 10:45 86 24 106/56 L 07/06/22 10:39 36.0 C L 96 H 22 109/61 07/06/22 09:07 36.9 C 77 20 123/65 07/06/22 06:26 36.4 C L 71 18 147/71 H Pulse Ox Pulse Ox Pulse Ox Pulse Ox O2 Del Method O2 Flow Rate O2 Flow Rate 07/06/22 15:02 07/06/22 14:55 96 94 92 2 07/06/22 12:15 07/06/22 12:03 95 Nasal Cannula 2 07/06/22 11:32 95 Nasal Cannula 2 07/06/22 11:15 98 Nasal Cannula 2 07/06/22 11:47 Nasal Cannula 07/06/22 08:00 07/06/22 11:05 94 Room Air 07/06/22 10:55 100 Oxymask 4 07/06/22 10:45 100 Oxymask 4 07/06/22 10:39 99 Oxymask 6 07/06/22 09:07 100 Nasal Cannula 2 07/06/22 06:26 96 Nasal Cannula 2 O2 Flow Rate O2 Flow Rate 07/06/22 15:02 07/06/22 14:55 2 2 07/06/22 12:15 07/06/22 12:03 07/06/22 11:32 07/06/22 11:15 07/06/22 11:47 07/06/22 08:00 07/06/22 11:05 07/06/22 10:55 07/06/22 10:45 07/06/22 10:39 07/06/22 09:07 07/06/22 06:26 Laboratory Results Short CBC 07/06/22 Range/Units 06:26 WBC 9.81 (4.8-10.8) K/ul Hgb 7.8 L (14.0-18.0) g/dl Hct 24.4 L (40.1-51.0) % Plt Count 137 (130-400) K/uL BMP 07/06/22 06:26 Sodium 137 Potassium 4.5 Chloride 103 Carbon Dioxide 27 BUN 26 H Creatinine 1.48 H Glucose 180 H Calcium 8.7 Urine 07/05/22 Range/Units 19:30 Urine Color Yellow Urine Appearance Clear (Clear) Urine pH 5.0 (4.5-7.5) Ur Specific [place] 1.018 (1.000-1.030) Urine Protein Negative (Negative) Urine Glucose (UA) Negative (Negative) Medications Administered Current Inpatient Medications Acetaminophen (Acetaminophen 325 Mg Tab) 650 mg PO Q4H PRN PRN Reason: Moderate Pain Stop: 08/04/22 18:56 Amantadine HCl (Amantadine Hcl 100 Mg Capsule) 100 mg PO [facility] Stop: 08/05/22 08:59 Last Admin: 07/06/22 08:10 Dose: 100 mg Aspirin (Aspirin 81 Mg Ectab) 81 mg PO QAM [facility] Stop: 08/05/22 08:59 Last Admin: 07/06/22 08:09 Dose: 81 mg Atorvastatin Calcium (Atorvastatin 40 Mg Tab) 40 mg PO QAM [facility] Stop: 08/05/22 08:59 Last Admin: 07/06/22 08:09 Dose: 40 mg Bupropion HCl (Bupropion Xl 150 Mg Tabcr) 150 mg PO DAILY [facility] Stop: 08/05/22 08:59 Last Admin: 07/06/22 08:09 Dose: 150 mg Chlorhexidine Gluconate (Chlorhexidine Gluconate 0.12% 480 Ml) 15 ml MT BID PRN PRN Reason: Prophylaxis Stop: 08/05/22 10:26 Dextrose (Dextrose 50% 50 Ml Syringe) 25 - 50 ml IV UD PRN; Protocol PRN Reason: Hypoglycemia Protocol Stop: 08/04/22 18:56 Donepezil HCl (Donepezil Hcl 10 Mg Tab) 10 mg PO HS [facility] Stop: 08/04/22 20:59 Last Admin: 07/05/22 20:38 Dose: 10 mg Escitalopram Oxalate (Escitalopram Oxalate 20 Mg Tab) 20 mg PO QAM [facility] Stop: 08/05/22 08:59 Last Admin: 07/06/22 08:09 Dose: 20 mg Glucagon (Glucagon For Inj 1 Mg Vial) 1 mg SQ UD PRN; Protocol PRN Reason: Hypoglycemia Protocol Stop: 08/04/22 18:56 Glucose (Glucose 40% Gel 15 Gm Tube) 15 - 30 gm PO UD PRN; Protocol PRN Reason: Hypoglycemia Protocol Stop: 08/04/22 18:56 Glucose (Glucose 10 Tab/Tube) 4 - 8 tab PO UD PRN; Protocol PRN Reason: Hypoglycemia Treatment Stop: 08/04/22 18:56 Heparin Sodium (Porcine) (Heparin Sod 5,000 Unit/0.5 Ml Vial) 5,000 units SQ Q12 [facility] Stop: 08/04/22 20:59 Last Admin: 07/06/22 08:15 Dose: 5,000 units Ceftriaxone Sodium 2,000 mg/ (Dextrose) 70 mls @ 100 mls/hr IV Q24H [facility]; Protocol Stop: 07/15/22 19:59 Last Infusion: 07/05/22 21:24 Dose: Infused Metronidazole (Flagyl) 500 mg in 100 mls @ 100 mls/hr IV Q8H [facility] Stop: 07/15/22 19:59 Last Infusion: 07/06/22 13:34 Dose: Infused Vancomycin HCl 1,250 mg/ (Sodium Chloride) 275 mls @ 200 mls/hr IV Q24H [facility]; Protocol Stop: 07/16/22 05:59 Last Infusion: 07/06/22 07:30 Dose: Infused Insulin Aspart (Insulin Aspart Per Unit) 0 units SC ACHS [facility] Stop: 08/04/22 20:59 Last Admin: 07/06/22 12:40 Dose: 2 units Metoprolol Succinate (Metoprolol Succ 25mg Ext Rel Tab) 25 mg PO QAM [facility] Stop: 08/05/22 08:59 Last Admin: 07/06/22 08:09 Dose: 25 mg Miscellaneous (Carbohydrates For Hypoglycemia ) 15 - 30 gm PO UD PRN PRN Reason: Hypoglycemia Protocol Stop: 08/04/22 18:56 Ondansetron HCl (Ondansetron Inj 2 Mg/Ml 2 Ml Vial) 4 mg IV Q4H PRN PRN Reason: Nausea And Vomiting Stop: 08/04/22 18:56 Pantoprazole Sodium (Pantoprazole 40 Mg Tab) [facility] [place] Stop: 08/05/22 08:59 Last Admin: 07/06/22 08:09 Dose: 40 mg Tamsulosin HCl (Tamsulosin Hcl 0.4 Mg Cap) 0.4 mg PO HS [facility] Stop: 08/04/22 20:59 Last Admin: 07/05/22 20:38 Dose: 0.4 mg (1) CHF (congestive heart failure) Heart failure chronicity: acute Heart failure type: diastolic Qualified Code(s): I50.31 - Acute diastolic (congestive) heart failure
[2022-07-06] MEDS: cefTRIAXone SODIUM 2,000 MG in DEXTROSE 5% 50 ML IV SCH (20:11)
[2022-07-06] MEDS: DONEPEZIL HCL 10 MG TAB PO SCH (21:04)
[2022-07-06] MEDS: TAMSULOSIN HCL 0.4 MG CAP PO SCH (21:04)
[2022-07-06] MEDS: ACETAMINOPHEN 325 MG TAB PO PRN (21:04)
[2022-07-07] MEDS: metroNIDAZOLE 500 MG/100 ML BAG IV SCH (05:00)
[2022-07-07] MEDS: VANCOMYCIN HCL 1,250 MG in SODIUM CHLORIDE 0.9% 250 ML IV SCH (05:06)
[2022-07-07 07:49] LABS: Hematocrit (blood only) 23.3 % (40.1-51.0); Hemoglobin 7.4 g/dl (14.0-18.0); Immature Granulocytes # (auto) 0.05 K/uL (0.00-0.02); Immature Granulocytes % (auto) 0.7 %; Lymphocytes # (auto) 0.44 K/uL (1.2-3.4); Lymphocytes % (auto) 5.9 %; Mean Corpuscular Hgb Conc 31.8 g/dL (32.0-36.0); Mean Corpuscular Volume 100.9 fL (80.0-100.0); Mean Platelet Volume 9.6 fL (9.4-12.4); Monocytes # (auto) 0.34 K/uL (0.24-0.82); Monocytes % (auto) 4.5 %; Neutrophils # (auto) 6.66 K/uL (1.4-6.5); Neutrophils % (auto) 88.9 %; Platelet Count 121 K/uL (130-400); RDW Coefficient of Variation 16.5 % (11.5-14.5); RDW Standard Deviation 60.4 fL (36.4-46.3); Red Blood Count 2.31 M/uL (4.63-6.08); White Blood Count 7.49 K/ul (4.8-10.8)
[2022-07-07] MEDS: ASPIRIN 81 MG ECTAB PO SCH (08:05)
[2022-07-07] MEDS: AMANTADINE HCL 100 MG CAPSULE PO SCH (08:05)
[2022-07-07] MEDS: ATORVASTATIN 40 MG TAB PO SCH (08:05)
[2022-07-07] MEDS: PANTOprazole 40 MG TAB PO SCH (08:06)
[2022-07-07] MEDS: ESCITALOPRAM OXALATE 20 MG TAB PO SCH (08:06)
[2022-07-07] MEDS: METOPROLOL SUCC 25MG EXT REL TAB PO SCH (08:06)
[2022-07-07] MEDS: buPROPion XL 150 MG TABCR PO SCH (08:06)
[2022-07-07] MEDS: HEPARIN SOD 5,000 UNIT/0.5 ML VIAL SQ SCH ×2 (08:09→20:52)
[2022-07-07 08:11] LABS: Polychromasia 1+
[2022-07-07 08:17] LABS: Calcium 8.5 mg/dl (8.5-10.1); Est GFR (African American) 53.1 ml/min; Est GFR (Non-African American) 45.8 ml/min; Magnesium 2.1 mg/dl (1.7-2.4); Potassium 4.1 mmol/L (3.5-5.1)
[2022-07-07] MEDS: INSULIN ASPART PER UNIT SC SCH ×4 (08:50→20:52)
--- NOTE | 2022-07-07 10:06 | Oral/Maxillofacial Progress Nt ---
Date of Service July 07, 2022 Assessment & Plan Admission and Anticipated Discharge Date Admission Date: July 05, 2022 Subjective at 24 hr post op EXCELLENT result No pain, swelling, no bleeding. OK for D/C as per Oral Surgery point of view. I reviewed instruction and post op care Instructions reviewed for home care. Suggest oral antibiotics for 1 week. I will follow as Jesus will call for follow up. Thanks Layo Cervantes--Oral Maxillofacial Surgery Results & Data ([facility]) Vital Signs (Past 12 Hours) Vital Signs Temp Pulse Pulse Resp BP BP Pulse Ox 07/07/22 08:00 78 07/07/22 06:26 36.8 C 66 18 109/66 96 07/07/22 02:43 36.6 C 69 18 150/84 H 97 07/06/22 22:26 65 07/06/22 22:07 65 17 124/65 94 O2 Del Method O2 Flow Rate 07/07/22 08:00 07/07/22 06:26 Nasal Cannula 2 07/07/22 02:43 07/06/22 22:26 07/06/22 22:07 Nasal Cannula 2 PG Care Time/CCT Total # of Minutes Spent Total Time Spent with Patient: Total time spent is greater than 50% in coordination of care (as documented) at patient's floor/unit and/or counseling patient: Coding Level of Care Code None
[2022-07-07] MEDS: MUPIROCIN 2% OINT 22 GM TUBE EXT SCH ×2 (11:35→20:52)
[2022-07-07] MEDS ORDERED: FUROSEMIDE 40 MG/4 ML VIAL IV ONE (12:30)
--- NOTE | 2022-07-07 14:56 | Hospitalist Progress Note ---
Date of Service July 07, 2022 Assessment & Plan (1) Dental infection: Plan: - Concern for early phase sepsis with fever, chills, weakness, rigors, pain in mouth. Pt has been taking tylenol around the clock x 5 days with antibiotic for pain so likely is masking fever. - Pt has been on amoxicillin 500 mg TID x 5 days (prescribed 10 day course). Also is on keflex 500 mg BID for lower extremity ulcerations + MRSA from last admission prophylactically - Obtain CT soft tissue neck wo contrast-1. Multiple dental caries, including caries of the right second mandibular molar with adjacent soft tissue stranding consistent with cellulitis. No soft tissue abscess identified. 2. No cervical lymphadenopathy. No fluid collection within the neck. 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 -Denies any pain following the surgery and has been tolerating clears -Appreciate input from orofacial surgeon -Antibiotics have been changed to Augmentin twice daily to continue for a total of 10 days Chronic iron deficiency anemia Has been getting intravenous iron infusion as an outpatient and also received blood transfusion in the past IV iron was given last month Hemoglobin remains low at 7.8 Will not give any more iron during this admission but monitor CBC and if the hemoglobin is below 7 we will give transfusion His hemoglobin is at 7.4 today and will repeat tomorrow (2) CHF (congestive heart failure): Plan: - Possible that he is slightly volume up with edema of legs, no JVD - Last Echo from 05/01/22 showing EF of 60-65%, mild concentric LVH, mild AI, Mitral valve thickened, moderate posterior mitral valve leaflet prolapse, mild- moderate anterior mitral valve leaflet prolapse, mild MR. - CXR does not show pulmonary edema, and CTA chest is negative for PE or other infectious processes, so unknown why he is noted to be slightly hypoxic with O2 sats at 87%, possible deconditioning ? Will order incentive spirometry and flutter - Given lasix 40 mg IV in the ER, monitor strict I/Os, daily weights, no further lasix until assess the response - Hold antihypertensives but may continue metoprolol succinate 25 mg tomorrow, BP is currently stable at 140s/80s - Hypomagnesemia with mag of 1.5, will give 2 g IV -He is clinically better today -His saturation dropped to below 80s with ambulation even with 2 L of oxygen he does not adequately up -We will give 40 of Lasix IV today and continue with physical therapy (3) HTN (hypertension): Plan: Blood pressure is controlled (4) Dyslipidemia: (5) Coronary artery disease: Plan: No acute cardiac pain (6) Acute respiratory failure with hypoxia: Plan: - Noted O2 sats at 87%, currently on 2 L with sats in low 90s, does not wear O2 at basline - CoVID negative - CXR and CTA chest without signs of acute infection -Breathing is not any worse -He has had to have stable O2 saturation test done today and he required 2 L with ambulation --He might be going home tomorrow-he may need blood transfusion with Lasix to improve his breathing and oxygen requirement (7) Primary parkinsonism: Plan: - noted, continue namenda - PT/OT consults - Aspiration precautions (8) Dementia associated with Parkinson's disease: Plan: - Oriented to self, [facility] [place], but does not know the date. - Attempt to reorient with family at bedside. No hx of behavioral disturbances per the family (9) Diabetes type 2, controlled: Plan: - Holding metformin, ISS with accuchecks achs - Check A1C with am labs, last was 5.5 on 03/22/22 (10) CKD (chronic kidney disease) stage 3, GFR 30-59 ml/min: Plan: - Stage 3a, will monitor with administration of lasix earlier today, hold on further diuretics - Renally reduce medication and avoid nephrotoxins -Creatinine increased to 1.48 -We will monitor DVT ppx: teds, heparin subq CODE: FULL Dispo: From home, lives with , likely to remain in the hospital x 2 days Discussed with the and the daughter (11) Immunosuppressed status: Admission and Anticipated Discharge Date Admission Date: July 05, 2022 Subjective 07/06/2022 The patient was seen and examined in medical telemetry unit He is status post extraction of abscessed tooth #31 Denies any pain and has been tolerating clears No other symptoms but remains generally weak 07/07/2022 The patient was seen and examined in medical telemetry unit He is out of bed on a chair and denies any significant symptoms He has been tolerating regular diet Denies any fever and or chills Review of Systems Review of Systems: All systems reviewed and are unremarkable except as noted below Physical Exam 2 Physical Exam: Sitting on a chair without any acute distress Constitutional: well developed, well nourished, + ill appearing and + obese Eyes: PERRL, conjunctivae normal, anicteric sclerae ENMT: external ear and nose normal, oropharynx normal Neck: trachea midline, no thyromegaly Respiratory: + respiratory distress (Minimal distress at rest) Auscultation: + diminished lung sounds and + crackles (Occasional crackles bibasally) Cardiovascular: Rate/Rhythm: regular rate and regular rhythm; not tachycardic Heart Sounds: normal S1 and normal S2; no murmur Extremities: + edema (1+ edema bilaterally) Gastrointestinal (Abdomen): Inspection/Auscultation: normal bowel sounds; abdomen not distended Percussion/Palpation: abdomen soft; abdomen nontender Musculoskeletal: No acute arthritis involving any of the joints Neurologic: plantar reflexes intact bilaterally and moves all extremities; no focal motor deficits Lymphatic: no cervical or axillary lymphadenopathy Results & Data Results & Data ([facility]) Vital Signs (Past 12 Hours) Vital Signs Temp Pulse Pulse Pulse Pulse Pulse Pulse 07/07/22 14:41 36.2 C L 75 07/07/22 11:25 36.3 C L 58 L 07/07/22 11:05 74 81 77 56 L 07/07/22 10:11 07/07/22 08:00 78 07/07/22 06:26 36.8 C 66 Resp Resp Resp Resp Resp BP Pulse Ox 07/07/22 14:41 20 147/59 H 96 07/07/22 11:25 18 129/72 97 07/07/22 11:05 19 20 19 15 07/07/22 10:11 07/07/22 08:00 07/07/22 06:26 18 109/66 96 Pulse Ox Pulse Ox Pulse Ox Pulse Ox O2 Del Method O2 Flow Rate O2 Flow Rate 07/07/22 14:41 Nasal Cannula 07/07/22 11:25 Nasal Cannula 07/07/22 11:05 95 84 L 95 98 2 07/07/22 10:11 Nasal Cannula 2 07/07/22 08:00 07/07/22 06:26 Nasal Cannula 2 Laboratory Results Short CBC 07/07/22 Range/Units 07:11 WBC 7.49 (4.8-10.8) K/ul Hgb 7.4 L (14.0-18.0) g/dl Hct 23.3 L (40.1-51.0) % Plt Count 121 L (130-400) K/uL [facility] 07/07/22 07:11 Sodium 138 Potassium 4.1 Chloride 105 Carbon Dioxide 27 BUN 29 H Creatinine 1.45 H Glucose 134 H Calcium 8.5 Medications Administered Current Inpatient Medications Acetaminophen (Acetaminophen 325 Mg Tab) 650 mg PO Q4H PRN PRN Reason: Moderate Pain Stop: 08/04/22 18:56 Last Admin: 07/06/22 21:04 Dose: 650 mg Amantadine HCl (Amantadine Hcl 100 Mg Capsule) 100 mg PO [facility] Stop: 08/05/22 08:59 Last Admin: 07/07/22 08:05 Dose: 100 mg Amoxicillin/Clavulanate Potassium (Amoxicillin/Clavulanate 875 Mg Tab) 1 tab PO BIDM [facility] Stop: 07/14/22 16:59 Aspirin (Aspirin 81 Mg Ectab) [facility] Stop: 08/05/22 08:59 Last Admin: 07/07/22 08:05 Dose: 81 mg Atorvastatin Calcium (Atorvastatin 40 Mg Tab) [facility] Stop: 08/05/22 08:59 Last Admin: 07/07/22 08:05 Dose: 40 mg Bupropion HCl (Bupropion Xl 150 Mg Tabcr) 150 mg PO DAILY [facility] Stop: 08/05/22 08:59 Last Admin: 07/07/22 08:06 Dose: 150 mg Chlorhexidine Gluconate (Chlorhexidine Gluconate 0.12% 480 Ml) 15 ml MT BID PRN PRN Reason: Prophylaxis Stop: 08/05/22 10:26 Dextrose (Dextrose 50% 50 Ml Syringe) 25 - 50 ml IV UD PRN; Protocol PRN Reason: Hypoglycemia Protocol Stop: 08/04/22 18:56 Donepezil HCl (Donepezil Hcl 10 Mg Tab) 10 mg PO [facility] Stop: 08/04/22 20:59 Last Admin: 07/06/22 21:04 Dose: 10 mg Escitalopram Oxalate (Escitalopram Oxalate 20 Mg Tab) 20 mg PO QAM [facility] Stop: 08/05/22 08:59 Last Admin: 07/07/22 08:06 Dose: 20 mg Glucagon (Glucagon For Inj 1 Mg Vial) 1 mg SQ UD PRN; Protocol PRN Reason: Hypoglycemia Protocol Stop: 08/04/22 18:56 Glucose (Glucose 40% Gel 15 Gm Tube) 15 - 30 gm PO UD PRN; Protocol PRN Reason: Hypoglycemia Protocol Stop: 08/04/22 18:56 Glucose (Glucose 10 Tab/Tube) 4 - 8 tab PO UD PRN; Protocol PRN Reason: Hypoglycemia Treatment Stop: 08/04/22 18:56 Heparin Sodium (Porcine) (Heparin Sod 5,000 Unit/0.5 Ml Vial) 5,000 units SQ Q12 [facility] Stop: 08/04/22 20:59 Last Admin: 07/07/22 08:09 Dose: 5,000 units Insulin Aspart (Insulin Aspart Per Unit) 0 units SC ACHS [facility] Stop: 08/04/22 20:59 Last Admin: 07/07/22 12:09 Dose: 6 units Metoprolol Succinate (Metoprolol Succ 25mg Ext Rel Tab) 25 mg PO QAM [facility] Stop: 08/05/22 08:59 Last Admin: 07/07/22 08:06 Dose: 25 mg Miscellaneous (Carbohydrates For Hypoglycemia ) 15 - 30 gm PO UD PRN PRN Reason: Hypoglycemia Protocol Stop: 08/04/22 18:56 Mupirocin (Mupirocin 2% Oint 22 Gm Tube) 1 appln EXT BID [facility] Stop: 08/06/22 10:29 Last Admin: 07/07/22 11:35 Dose: 1 appln Ondansetron HCl (Ondansetron Inj 2 Mg/Ml 2 Ml Vial) 4 mg IV Q4H PRN PRN Reason: Nausea And Vomiting Stop: 08/04/22 18:56 Pantoprazole Sodium (Pantoprazole 40 Mg Tab) 40 mg PO QAM [facility] Stop: 08/05/22 08:59 Last Admin: 07/07/22 08:06 Dose: 40 mg Tamsulosin HCl (Tamsulosin Hcl 0.4 Mg Cap) 0.4 mg PO HS [facility] Stop: 08/04/22 20:59 Last Admin: 07/06/22 21:04 Dose: 0.4 mg (1) CHF (congestive heart failure) Heart failure chronicity: acute Heart failure type: diastolic Qualified Code(s): I50.31 - Acute diastolic (congestive) heart failure
[2022-07-07] MEDS: AMOXICILLIN/CLAVULANATE 875 MG TAB PO SCH (17:22)
[2022-07-07] MEDS: TAMSULOSIN HCL 0.4 MG CAP PO SCH (20:51)
[2022-07-07] MEDS: DONEPEZIL HCL 10 MG TAB PO SCH (20:51)
[2022-07-07] MEDS: ACETAMINOPHEN 325 MG TAB PO PRN (20:51)
[2022-07-08] MEDS: AMOXICILLIN/CLAVULANATE 875 MG TAB PO SCH (08:23)
[2022-07-08] MEDS: ESCITALOPRAM OXALATE 20 MG TAB PO SCH (08:23)
[2022-07-08] MEDS: ATORVASTATIN 40 MG TAB PO SCH (08:24)
[2022-07-08] MEDS: PANTOprazole 40 MG TAB PO SCH (08:24)
[2022-07-08] MEDS: AMANTADINE HCL 100 MG CAPSULE PO SCH (08:24)
[2022-07-08] MEDS: buPROPion XL 150 MG TABCR PO SCH (08:24)
[2022-07-08] MEDS: ASPIRIN 81 MG ECTAB PO SCH (08:24)
[2022-07-08] MEDS: METOPROLOL SUCC 25MG EXT REL TAB PO SCH (08:24)
[2022-07-08] MEDS: INSULIN ASPART PER UNIT SC SCH ×2 (08:28→12:02)
[2022-07-08] MEDS: HEPARIN SOD 5,000 UNIT/0.5 ML VIAL SQ SCH (08:29)
[2022-07-08] MEDS: MUPIROCIN 2% OINT 22 GM TUBE EXT SCH (08:30)
[2022-07-08 10:30] LABS: Basophils # (auto) 0.01 K/uL (0-0.2); Basophils % (auto) 0.3 %; Eosinophils # (auto) 0.04 K/uL (0-0.50); Eosinophils % (auto) 1.2 %; Hematocrit (blood only) 28.3 % (40.1-51.0); Hemoglobin 8.9 g/dl (14.0-18.0); Immature Granulocytes # (auto) 0.03 K/uL (0.00-0.02); Immature Granulocytes % (auto) 0.9 %; Lymphocytes # (auto) 0.48 K/uL (1.2-3.4); Lymphocytes % (auto) 14.6 %; Mean Platelet Volume 9.3 fL (9.4-12.4); Monocytes % (auto) 9.1 %; Neutrophils # (auto) 2.43 K/uL (1.4-6.5); Neutrophils % (auto) 73.9 %; Platelet Count 126 K/uL (130-400); White Blood Count 3.29 K/ul (4.8-10.8)
[2022-07-08 10:58] LABS: BUN Creatinine Ratio 18.3 (10-20); Calcium 8.8 mg/dl (8.5-10.1); Creatinine Clr Calc Pharmacy 41.9 ml/min; Est GFR (African American) 54.4 ml/min; Potassium 3.9 mmol/L (3.5-5.1)
[2022-07-08 11:00] LABS: Mean Corpuscular Hemoglobin 32.1 pg (25.0-34.0); Mean Corpuscular Hgb Conc 31.4 g/dL (32.0-36.0); Mean Corpuscular Volume 102.2 fL (80.0-100.0); RDW Coefficient of Variation 15.9 % (11.5-14.5); RDW Standard Deviation 60.1 fL (36.4-46.3); Red Blood Count 2.77 M/uL (4.63-6.08)
--- NOTE | 2022-07-08 11:45 | Hospitalist Progress Note ---
Date of Service July 08, 2022 Assessment & Plan (1) Dental infection: Plan: - Concern for early phase sepsis with fever, chills, weakness, rigors, pain in mouth. Pt has been taking tylenol around the clock x 5 days with antibiotic for pain so likely is masking fever. - Pt has been on amoxicillin 500 mg TID x 5 days (prescribed 10 day course). Also is on keflex 500 mg BID for lower extremity ulcerations + MRSA from last admission prophylactically - Obtain CT soft tissue neck wo contrast-1. Multiple dental caries, including caries of the right second mandibular molar with adjacent soft tissue stranding consistent with cellulitis. No soft tissue abscess identified. 2. No cervical lymphadenopathy. No fluid collection within the neck. 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 -Denies any pain following the surgery and has been tolerating clears -Appreciate input from orofacial surgeon -Antibiotics have been changed to Augmentin twice daily to continue for a total of 10 days Clinically much better and will be discharged home this afternoon Chronic iron deficiency anemia Has been getting intravenous iron infusion as an outpatient and also received blood transfusion in the past IV iron was given last month Hemoglobin remains low at 7.8 Will not give any more iron during this admission but monitor CBC and if the hemoglobin is below 7 we will give transfusion His hemoglobin is at 7.4 today and will repeat tomorrow Hemoglobin went up to 8.9 on 07/08/2022 (2) CHF (congestive heart failure): Plan: - Possible that he is slightly volume up with edema of legs, no JVD - Last Echo from 05/01/22 showing EF of 60-65%, mild concentric LVH, mild AI, Mitral valve thickened, moderate posterior mitral valve leaflet prolapse, mild- moderate anterior mitral valve leaflet prolapse, mild MR. - CXR does not show pulmonary edema, and CTA chest is negative for PE or other infectious processes, so unknown why he is noted to be slightly hypoxic with O2 sats at 87%, possible deconditioning ? Will order incentive spirometry and flutter - Given lasix 40 mg IV in the ER, monitor strict I/Os, daily weights, no further lasix until assess the response - Hold antihypertensives but may continue metoprolol succinate 25 mg tomorrow, BP is currently stable at 140s/80s - Hypomagnesemia with mag of 1.5, will give 2 g IV -He is clinically better today -His saturation dropped to below 80s with ambulation even with 2 L of oxygen he does not adequately up -We will give 40 of Lasix IV today and continue with physical therapy -Hold out more than 2 L of urine following Lasix administration -We will continue Lasix as an outpatient (3) HTN (hypertension): Plan: Blood pressure is controlled (4) Dyslipidemia: (5) Coronary artery disease: Plan: No acute cardiac pain (6) Acute respiratory failure with hypoxia: Plan: - Noted O2 sats at 87%, currently on 2 L with sats in low 90s, does not wear O2 at basline - CoVID negative - CXR and CTA chest without signs of acute infection -Breathing is not any worse -He has had to have stable O2 saturation test done today and he required 2 L with ambulation --He might be going home tomorrow-he may need blood transfusion with Lasix to improve his breathing and oxygen requirement -Will be discharged home this afternoon and will need 2 L of oxygen with am bulation which is prescribed (7) Primary parkinsonism: Plan: - noted, continue namenda - PT/OT consults - Aspiration precautions (8) Dementia associated with Parkinson's disease: Plan: - Oriented to self, [facility] [place], but does not know the date. - Attempt to reorient with family at bedside. No hx of behavioral disturbances per the family (9) Diabetes type 2, controlled: Plan: - Holding metformin, ISS with accuchecks achs - Check A1C with am labs, last was 5.5 on 03/22/22 (10) CKD (chronic kidney disease) stage 3, GFR 30-59 ml/min: Plan: - Stage 3a, will monitor with administration of lasix earlier today, hold on further diuretics - Renally reduce medication and avoid nephrotoxins -Creatinine increased to 1.48 -Creatinine remains stable DVT ppx: teds, heparin subq CODE: FULL Dispo: From home, lives with , likely to remain in the hospital x 2 days Discussed with the and the daughter (11) Immunosuppressed status: Admission and Anticipated Discharge Date Admission Date: July 05, 2022 Subjective 07/06/2022 The patient was seen and examined in medical telemetry unit He is status post extraction of abscessed tooth #31 Denies any pain and has been tolerating clears No other symptoms but remains generally weak 07/07/2022 The patient was seen and examined in medical telemetry unit He is out of bed on a chair and denies any significant symptoms He has been tolerating regular diet Denies any fever and or chills 07/08/2022 Patient was seen and examined in medical telemetry unit in presence of the family members He has been feeling much better Has minimal cough without any sore throat and the shortness of breath is improved Review of Systems Review of Systems: All systems reviewed and are unremarkable except as noted below Respiratory: No shortness of breath at rest Physical Exam Physical Exam: Sitting on a chair without any acute distress Constitutional: well developed, well nourished, + ill appearing and + obese Eyes: PERRL, conjunctivae normal, anicteric sclerae ENMT: external ear and nose normal, oropharynx normal Neck: trachea midline, no thyromegaly Respiratory: + respiratory distress (Minimal distress at rest) Auscu ltation: + diminished lung sounds and + crackles (Occasional crackles bibasally) Cardiovascular: Rate/Rhythm: regular rate and regular rhythm; not tachycardic Heart Sounds: normal S1 and normal S2; no murmur Extremities: + edema (1+ edema bilaterally) Gastrointestinal (Abdomen): Inspection/Auscultation: normal bowel sounds; abdomen not distended Percussion/Palpation: abdomen soft; abdomen nontender Musculoskeletal: No acute arthritis in any joint Neurologic: plantar reflexes intact bilaterally and moves all extremities; no focal motor deficits Psychiatric: A+Ox3, euthymic affect Lymphatic: no cervical or axillary lymphadenopathy Results & Data Results & Data ([facility]) Vital Signs (Past 12 Hours) Vital Signs Temp Pulse Pulse Resp BP Pulse Ox O2 Del Method 07/08/22 07:58 36.4 C L 70 18 125/68 97 07/08/22 07:45 59 L 07/08/22 03:01 36.5 C 69 18 136/68 97 Nasal Cannula O2 Flow Rate 07/08/22 07:58 2 07/08/22 07:45 07/08/22 03:01 1.5 Laboratory Results Short CBC 07/08/22 Range/Units 09:37 WBC 3.29 L (4.8-10.8) K/ul Hgb 8.9 L (14.0-18.0) g/dl Hct 28.3 L (40.1-51.0) % Plt Count 126 L (130-400) K/uL [facility] 07/08/22 09:37 Sodium 139 Potassium 3.9 Chloride 103 Carbon Dioxide 29 BUN 26 H Creatinine 1.42 H Glucose 158 H Calcium 8.8 Medications Administered Current Inpatient Medications Acetaminophen (Acetaminophen 325 Mg Tab) 650 mg PO Q4H PRN PRN Reason: Moderate Pain Stop: 08/04/22 18:56 Last Admin: 07/07/22 20:51 Dose: 650 mg Amantadine HCl (Am[facility]adine Hcl 100 Mg Capsule) [facility] [place]: 08/05/22 08:59 Last Admin: 07/08/22 08:24 Dose: 100 mg Amoxicillin/Clavulanate Potassium (Amoxicillin/Clavulanate 875 Mg Tab) 1 tab PO BIDM [facility] Stop: 07/14/22 16:59 Last Admin: 07/08/22 08:23 Dose: 1 tab Aspirin (Aspirin 81 Mg Ectab) [facility] Stop: 08/05/22 08:59 Last Admin: 07/08/22 08:24 Dose: 81 mg Atorvastatin Calcium (Atorvastatin 40 Mg Tab) [facility] Stop: 08/05/22 08:59 Last Admin: 07/08/22 08:24 Dose: 40 mg Bupropion HCl (Bupropion Xl 150 Mg Tabcr) 150 mg PO DAILY [facility] Stop: 08/05/22 08:59 Last Admin: 07/08/22 08:24 Dose: 150 mg Chlorhexidine Gluconate (Chlorhexidine Gluconate 0.12% 480 Ml) 15 ml MT BID PRN PRN Reason: Prophylaxis Stop: 08/05/22 10:26 Dextrose (Dextrose 50% 50 Ml Syringe) 25 - 50 ml IV UD PRN; Protocol PRN Reason: Hypoglycemia Protocol Stop: 08/04/22 18:56 Donepezil HCl (Donepezil Hcl 10 Mg Tab) 10 mg PO HS [facility] Stop: 08/04/22 20:59 Last Admin: 07/07/22 20:51 Dose: 10 mg Escitalopram Oxalate (Escitalopram Oxalate 20 Mg Tab) 20 mg PO QAM [facility] Stop: 08/05/22 08:59 Last Admin: 07/08/22 08:23 Dose: 20 mg Glucagon (Glucagon For Inj 1 Mg Vial) 1 mg SQ UD PRN; Protocol PRN Reason: Hypoglycemia Protocol Stop: 08/04/22 18:56 Glucose (Glucose 40% Gel 15 Gm Tube) 15 - 30 gm PO UD PRN; Protocol PRN Reason: Hypoglycemia Protocol Stop: 08/04/22 18:56 Glucose (Glucose 10 Tab/Tube) 4 - 8 tab PO UD PRN; Protocol PRN Reason: Hypoglycemia Treatment Stop: 08/04/22 18:56 Heparin Sodium (Porcine) (Heparin Sod 5,000 Unit/0.5 Ml Vial) 5,000 units SQ Q12 JEANETH Stop: 08/04/22 20:59 Last Admin: 07/08/22 08:29 Dose: 5,000 units Insulin Aspart (Insulin Aspart Per Unit) 0 units SC ACHS [facility] Stop: 08/04/22 20:59 Last Admin: 07/08/22 08:28 Dose: 2 units Metoprolol Succinate (Metoprolol Succ 25mg Ext Rel Tab) 25 mg PO QAM [facility] Stop: 08/05/22 08:59 Last Admin: 07/08/22 08:24 Dose: 25 mg Miscellaneous (Carbohydrates For Hypoglycemia ) 15 - 30 gm PO UD PRN PRN Reason: Hypoglycemia Protocol Stop: 08/04/22 18:56 Mupirocin (Mupirocin 2% Oint 22 Gm Tube) 1 appln EXT BID [facility] Stop: 08/06/22 10:29 Last Admin: 07/08/22 08:30 Dose: 1 appln Ondansetron HCl (Ondansetron Inj 2 Mg/Ml 2 Ml Vial) 4 mg IV Q4H PRN PRN Reason: Nausea And Vomiting Stop: 08/04/22 18:56 Pantoprazole Sodium (Pantoprazole 40 Mg Tab) 40 mg PO QAM [facility] Stop: 08/05/22 08:59 Last Admin: 07/08/22 08:24 Dose: 40 mg Tamsulosin HCl (Tamsulosin Hcl 0.4 Mg Cap) 0.4 mg PO HS [facility] Stop: 08/04/22 20:59 Last Admin: 07/07/22 20:51 Dose: 0.4 mg (1) CHF (congestive heart failure) Heart failure chronicity: acute Heart failure type: diastolic Qualified Code(s): I50.31 - Acute diastolic (congestive) heart failure
--- NOTE | 2022-07-09 07:43 | Discharge Summary ---
Date of Service July 08, 2022 Admission HPI Per Admitting Provider This is a 77 yo M with PMhx of CAD, status post CABG x3, HTN, HLD, DM type II, CKD stage III, parkinsonism, dementia, BPH, osteoarthritis, iron deficiency anemia who presents to the ER at request of his daughter. She reports that he had a low-grade fever of 100.3 at home today with associated weakness with difficulty ambulating with a walker, chills, shivering, and he has had a mild cough. He feels there is some phlegm to cough up but isn't coughing, ongoing for about 1 week timeframe and notices this in the morning when he first wakes up. He has recently been on Amoxicillin 500 mg TID x5 days (scheduled course for 10d) for right lower posterior molar infection and is scheduled to have this molar removed as an outpatient soon. His dentist did not want to pull it without antibiotics first. Pt notes this has been throbbing, and has been taking tylenol every 6 hours because of pain with the antibiotic at home for the past 5 days. Patient and daughter are present at bedside and they report that he is NOT physically active, walks minimally due to his Parkinsonism movements. He participates with PT once per week, and is seen by [facility] regularly. notes that last week his oxygen saturations dropped into the high 80s with ambulation but that it recovered when he was sitting still. Today his O2 sats dropped to 87% while at rest, and after being placed on 2 L improved into the high 90s. He does not wear any oxygen at baseline. After his previous hospitalization in the middle of April, his notes that oxygen was sent home however he ended up not needing this by the time he was discharged. He denies any current chest pain, palpitations, flutter, lightheadedness. He has been tolerating good p.o. intake and denies any abdominal complaints. He reports his last bowel movement was this morning. Denies any urinary symptoms other than needing to urinate twice during our conversation because of being given Lasix in the ER. He did not take any of his morning medications today. Denies any open wounds on his legs, toes or buttocks since being admitted in April. There is increased swelling in his right leg more so than the left at baseline, thinks it was several years swollen than normal today. Admission Exam Per Admitting Provider Physical Exam: General: awake, alert, no apparent distress Head: Normocephalic, atraumatic ENT: PERRL, EOMI, no pharyngeal exudate, mucous membranes moist, + R mandibular molar is broken off, blackened, surrounding edema,+ tenderness with palpation of the mandible and slightly swollen. Other dentition intact Chest: Clear to auscultation, on room air, no adventitious breath sounds Cardiac: Regular rate and rhythm, no murmur, no JVD, normal peripheral pulses, good capillary refill Abdominal: NABS x 4 quadrants, soft, nondistended, nontender to palpation, no rebound or guarding Extremities: Normal inspection, no peripheral edema or erythema, calfs nontender to palpation Psych: Normal mood and affect Neuro: AAO to self, thinks he is in [facility], and that it is 2012. He is able to name the president. strength intact bilaterally and rated 4/5, no motor deficits, speech is clear, no peripheral sensory deficits Principal Diagnosis Dental abscess status post extraction of #31, CHF, chronic iron deficiency anemia, hypertension, diabetes type 2 Discharge Exam Sitting on a chair without any acute distress Constitutional well developed, well nourished, + ill appearing and + obese Eyes PERRL, conjunctivae normal, anicteric sclerae ENMT external ear and nose normal, oropharynx normal Neck trachea midline, no thyromegaly Respiratory + respiratory distress (Minimal distress at rest) Auscultation: + diminished lung sounds and + crackles (Occasional crackles bibasally) Cardiovascular Rate/Rhythm: regular rate and regular rhythm; not tachycardic Heart Sounds: normal S1 and normal S2; no murmur Extremities: + edema (1+ edema bilaterally) Gastrointestinal (Abdomen) Inspection/Auscultation: normal bowel sounds; abdomen not distended Percussion/Palpation: abdomen soft; abdomen nontender Neurologic plantar reflexes intact bilaterally and moves all extremities; no focal motor deficits Psychiatric A+Ox3, euthymic affect Lymphatic no cervical or axillary lymphadenopathy Discharge Data Allergies Allergy/AdvReac Type Severity Reaction Status Date / Time YONATAN Inhibitors AdvReac Mild Cough Verified 07/06/22 09:06 Consultations 07/05/22 14:24 ED Decision to Admit Stat 07/05/22 16:17 Consult Oromaxillofacial Surgery Routine Procedures Performed Operation Date: 07/06/22 07:00 Actual Procedures p Extraction of Abscess Tooth #31(Not Applicable) - Layo Cervantes, DMD Ordered Studies 07/05/22 12:01 CT angio chest PE protocol Stat 07/05/22 15:39 CT soft tissue neck wo con Stat Hospital Course (1) Dental infection: - Concern for early phase sepsis with fever, chills, weakness, rigors, pain in mouth. Pt has been taking tylenol around the clock x 5 days with antibiotic for pain so likely is masking fever. - Pt has been on amoxicillin 500 mg TID x 5 days (prescribed 10 day course). Also is on keflex 500 mg BID for lower extremity ulcerations + MRSA from last admission prophylactically - Obtain CT soft tissue neck wo contrast-1. Multiple dental caries, including caries of the right second mandibular molar with adjacent soft tissue stranding consistent with cellulitis. No soft tissue abscess identified. 2. No cervical lymphadenopathy. No fluid collection within the neck. 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 -Denies any pain following the surgery and has been tolerating clears -Appreciate input from orofacial surgeon -Antibiotics have been changed to Augmentin twice daily to continue for a total of 10 days Clinically much better and will be discharged home this afternoon Chronic iron deficiency anemia Has been getting intravenous iron infusion as an outpatient and also received blood transfusion in the past IV iron was given last month Hemoglobin remains low at 7.8 Will not give any more iron during this admission but monitor CBC and if the hemoglobin is below 7 we will give transfusion His hemoglobin is at 7.4 today and will repeat tomorrow Hemoglobin went up to 8.9 on 07/08/2022 (2) CHF (congestive heart failure): - Possible that he is slightly volume up with edema of legs, no JVD - Last Echo from 05/01/22 showing EF of 60-65%, mild concentric LVH, mild AI, Mitral valve thickened, moderate posterior mitral valve leaflet prolapse, mild- moderate anterior mitral valve leaflet prolapse, mild MR. - CXR does not show pulmonary edema, and CTA chest is negative for PE or other infectious processes, so unknown why he is noted to be slightly hypoxic with O2 sats at 87%, possible deconditioning ? Will order incentive spirometry and flutter - Given lasix 40 mg IV in the ER, monitor strict I/Os, daily weights, no further lasix until assess the response - Hold antihypertensives but may continue metoprolol succinate 25 mg tomorrow, BP is currently stable at 140s/80s - Hypomagnesemia with mag of 1.5, will give 2 g IV -He is clinically better today -His saturation dropped to below 80s with ambulation even with 2 L of oxygen he does not adequately up -We will give 40 of Lasix IV today and continue with physical therapy -Hold out more than 2 L of urine following Lasix administration -We will continue Lasix as an outpatient (3) HTN (hypertension): Blood pressure is controlled (4) Dyslipidemia: (5) Coronary artery disease: No acute cardiac pain (6) Acute respiratory failure with hypoxia: - Noted O2 sats at 87%, currently on 2 L with sats in low 90s, does not wear O2 at basline - CoVID negative - CXR and CTA chest without signs of acute infection -Breathing is not any worse -He has had to have stable O2 saturation test done today and he required 2 L with ambulation --He might be going home tomorrow-he may need blood transfusion with Lasix to improve his breathing and oxygen requirement -Will be discharged home this afternoon and will need 2 L of oxygen with ambulation which is prescribed (7) Primary parkinsonism: - noted, continue namenda - PT/OT consults - Aspiration precautions (8) Dementia associated with Parkinson's disease: - Oriented to self, [facility], but does not know the date. - Attempt to reorient with family at bedside. No hx of behavioral disturbances per the family (9) Diabetes type 2, controlled: - Holding metformin, ISS with accuchecks achs - Check A1C with am labs, last was 5.5 on 03/22/22 (10) CKD (chronic kidney disease) stage 3, GFR 30-59 ml/min: - Stage 3a, will monitor with administration of lasix earlier today, hold on further diuretics - Renally reduce medication and avoid nephrotoxins -Creatinine increased to 1.48 -Creatinine remains stable DVT ppx: teds, heparin subq CODE: FULL Dispo: From home, lives with , likely to remain in the hospital x 2 days Discussed with the and the daughter (11) Immunosuppressed status: Total Time Total Time Spent Total Time Spent (In Minutes): 35 minutes Discharge Plan Discharge Items Patient Disposition: Home - Self-Care Reason For Visit: WEAKNESS, HYPOMAGNESEMIA Discharge Diagnosis: Dental abscess status post extraction of #31, CHF, chronic iron deficiency anemia, hypertension, diabetes type 2 Activity: Resume your previous activity Non-emergency contact: Surgeon Call non-emergency contact if: you have any medication questions and your symptoms worsen Follow-up/Referrals: Layo Cervantes DMD [Physician] - (Please call Dr. Cervantes for a follow-up appointment) Michael Hinton MD [Primary Care Provider] - (Date & Time 07/13/2022 11:00 AM Provider Michael Hinton MD Department Family [facility] ) Diet: Carb Consistent or DM2 Diet Texture: Easy to Chew Diet Comment: Dental soft as tolerated Addtl Attending Provider Instructions: Please take precautions to avoid fall Finish the course of antibiotic Take your oxygen as advised No other changes in your medications Please give appointment with your healthcare providers Addtl Gear Design Engineer Provider Instructions: ADDITIONAL ACTIVITY RECOMMENDATIONS: * [place] teeth after every meal. It is very important to keep your mouth clean to prevent infection. * Starting tonight rinse with the Peridex as directed then 2 x a day * it is very important to keep well hydrated, this prevents fever and possible dry socket pain SPECIAL CARE INSTRUCTIONS: *It is not uncommon that between day 2-4 that your swelling will be at its worst this is very normal, do not be alarmed. * Keep ice on the side of your face for the next 24 to 36 hours. This will help keep the swelling down. * After 36 hours, apply heat (hot water bottle or heating pad) for the next two days, as often as possible. * Tomorrow start rinsing your mouth with 1/2 teaspoon salt in 8 ounces warm water. This rinse should be used every 4-6 hours. * You may experience slight nausea. To prevent this, never take your medication on an empty stomach. If nauseated, take small sips of dianne ja until you feel better; then you may start on applesauce and toast. * Some swelling is common. It should gradually decrease within 4-5 days. * A certain amount of bleeding is to be expected. It is often possible to control mild oozing by placing folded gauze over the area and biting down for 30 minutes. If you are unable to control excessive bleeding, call Dr Cervantes at [phone] * You may experience some discomfort for a few days. If pain or swelling increases, Call Dr Cervantes * Return to the office for a follow up check up on---please call office to set thi sup 10-14 days after July 06 office address--[address] phone # [phone] Pending Studies at Discharge: No Stand-Alone Forms: My [facility] [employer], Smoking Cessation Medications and DC Order Prescriptions: New amoxicillin-pot clavulanate 875-125 mg Tablet 1 tab PO BIDM Qty: 10 0RF mupirocin 2 % Ointment 1 applic EXT BID Qty: 15 0RF Rx Instructions: Apply in both nostrils bid for 4 days Continued escitalopram oxalate 20 mg tablet 20 mg PO QAM Qty: 90 3RF potassium chloride 20 mEq tablet extended release 20 meq PO 2XWK Qty: 30 3RF Rx Instructions: Take with Furosemide on Monday & Monday metoprolol succinate 25 mg tablet extended release 24 hr 25 mg PO QAM Qty: 90 3RF furosemide 40 mg tablet 40 mg PO 2XWK Qty: 30 3RF Rx Instructions: Take Monday & Monday instead of triamterene /HCTZ amantadine HCl 100 mg capsule 100 mg PO QAM Rx Instructions: ordered bid but takes only in morning Dupixent Pen 300 mg/2 mL pen injector 300 mg subcut .every 2 weeks Rx Instructions: Every other Monday- last given 07/04/22 donepezil 10 mg tablet 10 mg PO HS triamterene-hydrochlorothiazid 37.5-25 mg tablet 1 tab PO 5XWK Rx Instructions: take daily except monday and monday when taking furosemide atorvastatin 40 mg Tablet 40 mg PO QAM tamsulosin 0.4 mg capsule 0.4 mg PO HS Qty: 90 0RF Rx Instructions: Take at bedtime to avoid dizziness. pantoprazole 40 mg tablet,delayed release (DR/EC) 40 mg PO QAM aspirin [Negar Low Dose Aspirin] 81 mg Tablet,Delayed Release (Dr/Ec) 81 mg PO QAM metformin 500 mg tablet extended release 24 hr 500 mg PO QAM bupropion HCl 150 mg tablet extended release 24 hr 150 mg PO DAILY fluocinonide 0.05 % solution 1 applic TOPICAL DAILY PRN (Reason: after bathing) Rx Instructions: apply to scalp Discontinued amoxicillin 500 mg tablet 500 mg PO TID Rx Instructions: ordered 06/30/22 take for 10 days until gone cephalexin 500 mg capsule 500 mg PO BID Discharge Orders: Discharge Order (Routine); Ordered 07/08/22 Ordered By: Heath Ramos/Other Patient Handouts: Managing Type 2 Diabetes Admission Data Admit Date/Time: 07/05/22 15:12 Attending Provider: Heath Carter Admit Provider: Jennifer Fishman Primary Care Provider: Michael Hinton Other Providers: Jennifer Fishman ; Layo Cervantes Other Interventions: Discharge Summary Assessment (RN) Last Done: 07/08/22 13:11
== END 2022-07-08 14:44 | disposition home health service (06) | DRG 871 ==
LOC: ED 10:25 → 2N 15:12 → SUATTDRO 15:12 → 2N 18:15

== ENCOUNTER 2022-09-02 16:12 | Inpatient (IN) ==
--- NOTE | 2022-09-02 17:20 | XRay Report ---
XR chest 1V portable HISTORY: Atypical chest pain. cardiac assessment COMPARISON: Chest 07/05/2022. FINDINGS: There are low lung volumes. No pneumothorax. The heart remains enlarged. There are postster notomy changes. Tortuous thoracic aorta, unchanged. Surgical clips seen within the left upper quadran t. Mild central pulmonary vascular congestion without overt edema. This is similar to the prior study . There are old, healed left-sided rib fractures. Increased markings at the lung bases favor atelecta sis given the low lung volumes. IMPRESSION: Cardiomegaly with mild central pulmonary vascular congestion without overt edema. ACT 112: Negative or not required by law. Electronically signed by: José Miguel Rock M.D. 09/02/2022 5:19 PM
[2022-09-02 19:34] LABS: Troponin I High Sensitivity 7.3 pg/ml (0-20)
[2022-09-02 19:45] LABS: Alanine Aminotransferase 9 U/L (7-52); Albumin Globulin Ratio 1.3 (0.9-2); Albumin Level 3.9 gm/dl (3.4-5.0); Alkaline Phosphatase 99 U/L (34-104); Anion Gap 8 (3-11); BUN Creatinine Ratio 22.5 (10-20); Bilirubin,Total 0.4 mg/dl (0.2-1.0); Blood Urea Nitrogen 31 mg/dl (6-23); Calcium 9.3 mg/dl (8.5-10.1); Carbon Dioxide 31 mmol/L (21-32); Chloride 99 mmol/L (98-107); Est GFR (African American) 56.4 ml/min; Est GFR (Non-African American) 48.6 ml/min; Glucose 128 mg/dl (70-99(Fasting)); Sodium 138 mmol/L (136-145); Total Protein 6.9 gm/dl (6.0-8.3)
[2022-09-02 21:17] LABS: Basophils # (auto) 0.02 K/uL (0-0.2); Basophils % (auto) 0.5 %; Eosinophils % (auto) 2.3 %; Hematocrit (blood only) 29.9 % (40.1-51.0); Hemoglobin 9.6 g/dl (14.0-18.0); Immature Granulocytes # (auto) 0.03 K/uL (0.00-0.02); Immature Granulocytes % (auto) 0.7 %; Lymphocytes # (auto) 0.69 K/uL (1.2-3.4); Lymphocytes % (auto) 15.8 %; Mean Corpuscular Hemoglobin 30.4 pg (25.0-34.0); Mean Corpuscular Hgb Conc 32.1 g/dL (32.0-36.0); Mean Corpuscular Volume 94.6 fL (80.0-100.0); Mean Platelet Volume 9.5 fL (9.4-12.4); Monocytes % (auto) 9.1 %; Neutrophils # (auto) 3.14 K/uL (1.4-6.5); Neutrophils % (auto) 71.6 %; Platelet Count 198 K/uL (130-400); RDW Coefficient of Variation 14.6 % (11.5-14.5); RDW Standard Deviation 50.8 fL (36.4-46.3); Red Blood Count 3.16 M/uL (4.63-6.08); White Blood Count 4.38 K/ul (4.8-10.8)
[2022-09-02 21:51] LABS: Magnesium 1.9 mg/dl (1.7-2.4); Phosphorus 3.9 mg/dl (2.5-4.9); Potassium 4.5 mmol/L (3.5-5.1)
[2022-09-02 21:55] LABS: INR 1.1 (0.9-1.1); Partial Thromboplastin Time 28.5 Seconds (21.0-31.0); Prothrombin Time 11.2 Seconds (9.0-12.0)
[2022-09-02] MEDS ORDERED: FUROSEMIDE 40 MG/4 ML VIAL IV STA (22:07)
--- NOTE | 2022-09-02 22:27 | Emergency Department Note ---
Impression & Plan CHF (congestive heart failure), Paroxysmal atrial fibrillation, Hypervolemia ED Provider Note NAME: CHE BURCH AGE: 77 SEX: M ARRIVES VIA: Ambulance INFORMANT: Patient, family ED PROVIDER(S): Babar Wilburn MD CHIEF COMPLAINT: Edema PLAN: Disposition: Admit MEDICAL DECISION MAKING: The patient is a pleasant 77-year-old gentleman with a past medical history of COPD, diastolic heart failure, new diagnosis of atrial fibrillation started on Eliquis this past Monday, hypertension, hyperlipidemia, GERD who presents to the emergency department, via EMS and then accompanied by family for evaluation of ongoing fluid retention/lower extremity edema despite outpatient management increasing his Lasix to double his dose. They report he has been urinating but has not had any loss of weight and continues with lower extremity edema. He was in the kitchen today and did have a fall when he was attempting to get something and may have lost his balance when he looked over his walker but appears to have sat down and then laid down as he denies any pain and was able to ambulate his baseline thereafter. Denies any loss of consciousness. Denies any fevers, chills, cough, congestion, GI or symptoms. On arrival the patient is no acute distress, afebrile stable vital signs. Head is atraumatic. He has no CTL-spine tenderness palpation or step-offs. Pelvis is stable and hips with FROM. He appears hypervolemic with 2+ bilateral lower ex tremity pitting edema. EKG without overt acute ischemia. Chest x-ray with vascular congestion. WBC 4.3K nonspecific. H/H similar to prior. Platelets within normal limits. Chemistry without metabolic acidosis. Electrolytes and LFTs unremarkable. High-sensitivity troponin 7.3, within normal limits. BNP within normal limits. COVID-19 RNA, KARO test was negative. Patient ordered for IV Lasix. We will proceed with admission given failed outpatient management. Case was discussed with Dr. Gibbs, [facility] hospitalist, who will evaluate the patient for admission. Triage Nursing notes reviewed and agree them. Prior medical records reviewed Vital Signs: reviewed and remarkable for no significant abnormalities Differential diagnosis: Infection, dehydration, metabolic abnormality, hypo/hyperglycemia, electrolyte disturbance, anemia, hypoxia, cardiac sources, intracerebral event, toxicologic, neurologic, as well as other pathologies. ER treatment provided: See below. Diagnostics interpreted by me: ECG: Sinus rhythm with PACs and bigeminy, 91 bpm, no overt ST elevation or depression QTC 428, QRS 84 Cardiac Monitoring: An order for continuous cardiac monitoring was placed and demonstrated Sinus rhythm with PACs and bigeminy, 91 bpm. Laboratory studies: See below Imaging studies: See below Consultation(s): Case was discussed with Dr. Gibbs, [facility] hospitalist, who will evaluate the patient for admission. HPI: The patient is a pleasant 77-year-old gentleman with a past medical history of COPD, diastolic heart failure, new diagnosis of atrial fibrillation started on Eliquis this past Monday, hypertension, hyperlipidemia, GERD who presents to the emergency department, via EMS and then accompanied by family for evaluation of ongoing fluid retention/lower extremity edema despite outpatient management increasing his Lasix to double his dose. They report he has been urinating but has not had any loss of weight and continues with lower extremity edema. He was in the kitchen today and did have a fall when he was attempting to get something and may have lost his balance when he looked over his walker but appears to have sat down and then laid down as he denies any pain and was able to ambulate his baseline thereafter. Denies any loss of consciousness. Denies any fevers, chills, cough, congestion, GI or symptoms. ROS: See above HPI for pertinent positives & negatives. A total of 10 systems reviewed and were otherwise negative. VITALS:See Below PHYSICAL EXAMINATION: GENERAL: Awake, alert, fatigued-appearing, in no distress HENT: Normocephalic, atraumatic. Oropharynx unremarkable. EYES: Normal conjunctiva. Sclera non-icteric. NECK: Supple. No nuchal rigidity. FROM. No JVD. RESPIRATORY: Clear to auscultation. CARDIAC: Regular rate, normal rhythm. Extremities warm and well perfused. Pulses equal. ABDOMEN: Soft, non-distended. No tenderness to palpation. No rebound or guarding. No masses. RECTAL: Deferred. MUSCULOSKELETAL: Chest examination reveals no tenderness. The back is symmetrical on inspection without obvious abnormality. There is no CVA tenderness to palpation. No CTL-spine tenderness palpation or step-offs. Pelvis is stable and hips with FROM. LOWER EXTREMITIES: Calves are equal size bilaterally and non-tender. 2+ BLE edema. No discoloration. NEURO: Normal sensorium. No sensory or motor deficits noted. SKIN: No rash or jaundice noted. 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 Diabetes type 2, controlled Diabetic ulcer of right heel associated with diabetes mellitus due to underlying condition, with fat layer exposed Dyslipidemia Fall GERD (gastroesophageal reflux disease) HTN (hypertension) HTN (hypertension) Lumbar spondylosis Moderate mitral regurgitation Orthostatic hypotension (07/2019) Peripheral arterial disease Primary parkinsonism Seasonal allergies 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 Father Hypertension, Onset Age: 40 at 40 Mother Hypertension COPD (chronic obstructive pulmonary disease) Diabetes Brother Allergies Asthma Denies family history of Prostate cancer Hearing loss No family history of adverse response to anesthesia No family history of bleeding disorder Heart disease Cancer Stroke Social History Smoking Status: Never smoker Hx Alcohol Use: No Hx Substance Use: No Preferred Language: Kinyarwanda Communication Ability: Effective Bucket Wash Operator Required: No Beliefs That Will Affect Care: None marital status: Current Living Situation: Spouse Current Living Situation Comment: lives at home with and daughter Other Information That Helps Us Care for You: No Feels Safe at Home: Yes Safety Concerns: Feels Safe At This Time Assistive Devices: Hearing Aid - Bilateral and Walker Allergies Allergies Allergy/AdvReac Type Severity Reaction Status Date / Time YONATAN Inhibitors AdvReac Intermediate Cough Verified 09/02/22 21:24 Home Meds Home Medications Medication Instructions Recorded Confirmed atorvastatin 40 mg tablet 40 mg PO QAM 09/02/18 09/02/22 amantadine HCl 100 mg capsule 100 mg PO QAM 05/22/20 09/02/22 aspirin 81 mg tablet,delayed 81 mg PO QAM 02/02/21 09/02/22 release (Negar Low Dose Aspirin) pantoprazole 40 mg tablet,delayed 40 mg PO QAM 02/02/21 09/02/22 release donepezil 10 mg tablet 10 mg PO HS 05/11/21 09/02/22 triamterene 37.5 1 tab PO 5XWK 05/11/21 09/02/22 mg-hydrochlorothiazide 25 mg tablet bupropion HCl 150 mg 24 hr tablet, 150 mg PO DAILY 06/17/21 09/02/22 extended release fluocinonide 0.05 % topical 1 applic topical DAILY PRN after 06/17/21 09/02/22 solution bathing metformin 500 mg tablet,extended 500 mg PO QAM 06/17/21 09/02/22 release 24 hr dupilumab 300 mg/2 mL subcutaneous 300 mg subcut .every 2 weeks 03/03/22 09/02/22 pen injector ([employer]) apixaban 5 mg tablet (Eliquis) 5 mg PO BID 09/02/22 09/02/22 mupirocin 2 % topical ointment 1 applic EXT BID PRN Skin 09/02/22 09/02/22 Irritation Previous Rx's Medication Instructions Recorded tamsulosin 0.4 mg capsule 0.4 mg PO HS #90 caps 12/11/19 escitalopram oxalate 20 mg tablet 20 mg PO QAM #90 tabs 03/29/22 potassium chloride 20 mEq 20 meq PO 2XWK #30 tabs 04/15/22 tablet,extended release metoprolol succinate 25 mg 25 mg PO QAM #90 tabs 04/19/22 tablet,extended release 24 hr furosemide 40 mg tablet 40 mg PO 2XWK #30 tabs 05/19/22 Results & Data (ED) Vital Signs Vital Signs - 24 hr 09/02/22 16:35 09/02/22 20:56 09/02/22 20:56 Temperature 36.8 C Temperature Source Temporal Artery Scan Pulse Rate 101 H 77 Pulse Rate [Apical] Pulse Rhythm Irregular Pulse Rhythm [Apical] Pulse Strength [Apical] Respiratory Rate 20 20 Respiratory Effort / Characteristics Non-Labored Spontaneous Respiratory Depth Normal Respiratory Pattern Regular Blood Pressure 156/68 H Blood Pressure [Right Arm] Blood Pressure Mean 97 Blood Pressure Mean [Right Arm] Blood Pressure Position [Right Arm] Pulse Oximetry 96 100 100 Oxygen Delivery Method Nasal Cannula Nasal Cannula Nasal Cannula Oxygen Flow Rate 2 2 2 Sepsis Recent Fever Within 48 Hours No Sepsis New/Unexplained Change in Mental Status No Sepsis Action Taken by Nursing No Action Required 09/02/22 20:46 Temperature Temperature Source Pulse Rate Pulse Rate [Apical] 79 Pulse Rhythm Pulse Rhythm [Apical] Irregular Pulse Strength [Apical] Normal Respiratory Rate 20 Respiratory Effort / Characteristics Non-Labored Spontaneous Respiratory Depth Normal Respiratory Pattern Regular Blood Pressure Blood Pressure [Right Arm] 147/100 H Blood Pressure Mean Blood Pressure Mean [Right Arm] 115 Blood Pressure Position [Right Arm] Semi-fowlers Pulse Oximetry 100 Oxygen Delivery Method Nasal Cannula Oxygen Flow Rate 2 Sepsis Recent Fever Within 48 Hours Sepsis New/Unexplained Change in Mental Status Sepsis Action Taken by Nursing Laboratory Data Attestation: I reviewed the patient's lab results. Result diagrams: 09/03/22 02:22 09/02/22 21:33 Lab Results 09/02/22 09/02/22 09/02/22 Range/Units 18:48 18:48 18:48 WBC Cancelled RBC Cancelled Hgb Cancelled Hct Cancelled MCV Cancelled MCH Cancelled MCHC Cancelled RDW Std Deviation Cancelled RDW Coeff of Anny Cancelled Plt Count Cancelled MPV Cancelled Immature Gran % (Auto) Cancelled Neut % (Auto) Cancelled Lymph % (Auto) Cancelled [place] % (Auto) Cancelled Eos % (Auto) Cancelled Baso % (Auto) Cancelled Neut # (Auto) Cancelled Lymph # (Auto) Cancelled [place] # (Auto) Cancelled Eos # (Auto) Cancelled Baso # (Auto) Cancelled Immature Gran # (Auto) Cancelled Absolute Nucleated RBC Cancelled Nucleated RBC % (auto) Cancelled Neutrophils % (Manual) Cancelled Band Neutrophils % Cancelled Lymphocytes % (Manual) Cancelled Prolymphocyte % Cancelled Reactive Lymphs % (Man) Cancelled Monocytes % (Manual) Cancelled Eosinophils % (Manual) Cancelled Basophils % (Manual) Cancelled Metamyelocytes % (Man) Cancelled Myelocytes % (Man) Cancelled Promyelocytes % (Man) Cancelled Blast Cells % (Manual) Cancelled Plasma Cell % (Manual) Cancelled Other Cells % Cancelled Nucleated RBC % Cancelled Neutrophils # (Manual) Cancelled Band Neutrophils # Cancelled Total Absolute Neuts Cancelled Lymphocytes # (Manual) Cancelled Prolymphocyte # Cancelled Reactive Lymphs # Cancelled Total Abs Lymphocytes Cancelled Monocytes # (Manual) Cancelled Eosinophils # (Manual) Cancelled Basophils # (Manual) Cancelled Metamyelocytes # (Man) Cancelled Myelocytes # (Manual) Cancelled Promyelocytes # (Man) Cancelled Blast Cells # (Man) Cancelled Plasma Cell # (Manual) Cancelled Other Cells # Cancelled Nucleated RBCs # (Man) Cancelled Hypersegmented Neuts Cancelled Hyposegmented Neuts Cancelled Hypogranular Neuts Cancelled Large Granular Lymphs Cancelled # Lrg Granular Lymphs Cancelled Hairy Cells Cancelled Smudge Cells Cancelled Toxic Granulation Cancelled Toxic Vacuolation Cancelled Dohle Bodies Cancelled Gabbi Rods Cancelled Platelet Estimate Cancelled Hypogranular Platelets Cancelled Clumped Platelets Cancelled Giant Platelets Cancelled Platelet Satelliting Cancelled RBC Morphology Cancelled Polychromasia Cancelled Hypochromasia Cancelled Poikilocytosis Cancelled Basophilic Stippling Cancelled Anisocytosis Cancelled Microcytosis Cancelled Macrocytosis Cancelled Spherocytes Cancelled Pappenheimer Bodies Cancelled Sickle Cells Cancelled Target Cells Cancelled Tear Drop Cells Cancelled Ovalocytes Cancelled Stomatocytes Cancelled [place] Bodies Cancelled Echinocytes Cancelled Acanthocytes (Spur) Cancelled Rouleaux Cancelled RBC Agglutinates Cancelled Schistocytes Cancelled Sezary Cell Cancelled PT Cancelled INR Cancelled APTT Cancelled PTT Ratio Cancelled Sodium 138 (136-145) mmol/L Potassium TNP Chloride 99 (98-107) mmol/L Carbon Dioxide 31 (21-32) mmol/L Anion Gap 8 (3-11) BUN 31 H (6-23) mg/dl Creatinine 1.38 (0.6-1.4) mg/dl Est Cr Clr Drug Dosing Not Reportable Est GFR ( Amer) 56.4 ml/min Est GFR (Non-Af Amer) 48.6 ml/min BUN/Creatinine Ratio 22.5 H (10-20) Glucose 128 H (70-99(Fasting)) mg/dl Calcium 9.3 (8.5-10.1) mg/dl Phosphorus (2.5-4.9) mg/dl Magnesium (1.7-2.4) mg/dl Total Bilirubin 0.4 (0.2-1.0) mg/dl AST TNP ALT 9 (7-52) U/L Alkaline Phosphatase 99 (34-104) U/L Troponin I High Sens 7.3 (0-20) pg/ml B-Natriuretic Peptide (0-100) pg/ml Total Protein 6.9 (6.0-8.3) gm/dl Albumin 3.9 (3.4-5.0) gm/dl Globulin 3.0 (2.5-4.0) gm/dl Albumin/Globulin Ratio 1.3 (0.9-2) SARS-CoV-2, RNA, NAAT (NEGATIVE) Blood Parasites ID Cancelled 09/02/22 09/02/22 09/02/22 Range/Units 21:00 21:00 21:00 WBC 4.38 L RBC 3.16 L Hgb 9.6 L Hct 29.9 L MCV 94.6 MCH 30.4 MCHC 32.1 RDW Std Deviation 50.8 H RDW Coeff of Anny 14.6 H Plt Count 198 MPV 9.5 Immature Gran % (Auto) 0.7 Neut % (Auto) 71.6 Lymph % (Auto) 15.8 [place] % (Auto) 9.1 Eos % (Auto) 2.3 Baso % (Auto) 0.5 Neut # (Auto) 3.14 Lymph # (Auto) 0.69 L [place] # (Auto) 0.40 Eos # (Auto) 0.10 Baso # (Auto) 0.02 Immature Gran # (Auto) 0.03 H Absolute Nucleated RBC Nucleated RBC % (auto) Neutrophils % (Manual) Band Neutrophils % Lymphocytes % (Manual) Prolymphocyte % Reactive Lymphs % (Man) Monocytes % (Manual) Eosinophils % (Manual) Basophils % (Manual) Metamyelocytes % (Man) Myelocytes % (Man) Promyelocytes % (Man) Blast Cells % (Manual) Plasma Cell % (Manual) Other Cells % Nucleated RBC % Neutrophils # (Manual) Band Neutrophils # Total Absolute Neuts Lymphocytes # (Manual) Prolymphocyte # Reactive Lymphs # Total Abs Lymphocytes Monocytes # (Manual) Eosinophils # (Manual) Basophils # (Manual) Metamyelocytes # (Man) Myelocytes # (Manual) Promyelocytes # (Man) Blast Cells # (Man) Plasma Cell # (Manual) Other Cells # Nucleated RBCs # (Man) Hypersegmented Neuts Hyposegmented Neuts Hypogranular Neuts Large Granular Lymphs # Lrg Granular Lymphs Hairy Cells Smudge Cells Toxic Granulation Toxic Vacuolation Dohle Bodies Gabbi Rods Platelet Estimate Hypogranular Platelets Clumped Platelets Giant Platelets Platelet Satelliting RBC Morphology Polychromasia Hypochromasia Poikilocytosis Basophilic Stippling Anisocytosis Microcytosis Macrocytosis Spherocytes Pappenheimer Bodies Sickle Cells Target Cells Tear Drop Cells Ovalocytes Stomatocytes [place] Bodies Echinocytes Acanthocytes (Spur) Rouleaux RBC Agglutinates Schistocytes Sezary Cell PT Cancelled INR Cancelled APTT Cancelled PTT Ratio Cancelled Sodium (136-145) mmol/L Potassium Chloride (98-107) mmol/L Carbon Dioxide (21-32) mmol/L Anion Gap (3-11) BUN (6-23) mg/dl Creatinine (0.6-1.4) mg/dl Est Cr Clr Drug Dosing Est GFR ( Amer) ml/min Est GFR (Non-Af Amer) ml/min BUN/Creatinine Ratio (10-20) Glucose (70-99(Fasting)) mg/dl Calcium (8.5-10.1) mg/dl Phosphorus (2.5-4.9) mg/dl Magnesium (1.7-2.4) mg/dl Total Bilirubin (0.2-1.0) mg/dl AST ALT (7-52) U/L Alkaline Phosphatase (34-104) U/L Troponin I High Sens (0-20) pg/ml B-Natriuretic Peptide 73 (0-100) pg/ml Total Protein (6.0-8.3) gm/dl Albumin (3.4-5.0) gm/dl Globulin (2.5-4.0) gm/dl Albumin/Globulin Ratio (0.9-2) SARS-CoV-2, RNA, NAAT (NEGATIVE) Blood Parasites ID 09/02/22 09/02/22 09/02/22 Range/Units 21:16 21:33 21:33 WBC RBC Hgb Hct MCV MCH MCHC RDW Std Deviation RDW Coeff of Anny Plt Count MPV Immature Gran % (Auto) Neut % (Auto) Lymph % (Auto) [place] % (Auto) Eos % (Auto) Baso % (Auto) Neut # (Auto) Lymph # (Auto) [place] # (Auto) Eos # (Auto) Baso # (Auto) Immature Gran # (Auto) Absolute Nucleated RBC Nucleated RBC % (auto) Neutrophils % (Manual) Band Neutrophils % Lymphocytes % (Manual) Prolymphocyte % Reactive Lymphs % (Man) Monocytes % (Manual) Eosinophils % (Manual) Basophils % (Manual) Metamyelocytes % (Man) Myelocytes % (Man) Promyelocytes % (Man) Blast Cells % (Manual) Plasma Cell % (Manual) Other Cells % Nucleated RBC % Neutrophils # (Manual) Band Neutrophils # Total Absolute Neuts Lymphocytes # (Manual) Prolymphocyte # Reactive Lymphs # Total Abs Lymphocytes Monocytes # (Manual) Eosinophils # (Manual) Basophils # (Manual) Metamyelocytes # (Man) Myelocytes # (Manual) Promyelocytes # (Man) Blast Cells # (Man) Plasma Cell # (Manual) Other Cells # Nucleated RBCs # (Man) Hypersegmented Neuts Hyposegmented Neuts Hypogranular Neuts Large Granular Lymphs # Lrg Granular Lymphs Hairy Cells Smudge Cells Toxic Granulation Toxic Vacuolation Dohle Bodies Gabbi Rods Platelet Estimate Hypogranular Platelets Clumped Platelets Giant Platelets Platelet Satelliting RBC Morphology Polychromasia Hypochromasia Poikilocytosis Basophilic Stippling Anisocytosis Microcytosis Macrocytosis Spherocytes Pappenheimer Bodies Sickle Cells Target Cells Tear Drop Cells Ovalocytes Stomatocytes [place] Bodies Echinocytes Acanthocytes (Spur) Rouleaux RBC Agglutinates Schistocytes Sezary Cell PT 11.2 INR 1.1 APTT 28.5 PTT Ratio 1.0 Sodium (136-145) mmol/L Potassium 4.5 Chloride (98-107) mmol/L Carbon Dioxide (21-32) mmol/L Anion Gap (3-11) BUN (6-23) mg/dl Creatinine (0.6-1.4) mg/dl Est Cr Clr Drug Dosing Est GFR ( Amer) ml/min Est GFR (Non-Af Amer) ml/min BUN/Creatinine Ratio (10-20) Glucose (70-99(Fasting)) mg/dl Calcium (8.5-10.1) mg/dl Phosphorus 3.9 (2.5-4.9) mg/dl Magnesium 1.9 (1.7-2.4) mg/dl Total Bilirubin (0.2-1.0) mg/dl AST 14 ALT (7-52) U/L Alkaline Phosphatase (34-104) U/L Troponin I High Sens (0-20) pg/ml B-Natriuretic Peptide (0-100) pg/ml Total Protein (6.0-8.3) gm/dl Albumin (3.4-5.0) gm/dl Globulin (2.5-4.0) gm/dl Albumin/Globulin Ratio (0.9-2) SARS-CoV-2, RNA, NAAT NEGATIVE (NEGATIVE) Blood Parasites ID Administered Medications Discontinued Medications Furosemide (Furosemide 40 Mg/4 Ml Vial) 40 mg IV NOW STA Stop: 09/02/22 22:08 Last Admin: 09/02/22 22:39 Dose: 40 mg Documented By: ELIZABETH Imaging Data Radiologist's Impression: Chest X-Ray 09/02/22 17:00 XR chest 1V portable HISTORY: Atypical chest pain. cardiac assessment COMPARISON: Chest 07/05/2022. FINDINGS: There are low lung volumes. No pneumothorax. The heart remains enlarged. There are poststernotomy changes. Tortuous thoracic aorta, unchanged. Surgical clips seen within the left upper quadrant. Mild central pulmonary vascular congestion without overt edema. This is similar to the prior study. There are old, healed left-sided rib fractures. Increased markings at the lung bases favor atelectasis given the low lung volumes. IMPRESSION: Cardiomegaly with mild central pulmonary vascular congestion without overt edema. ACT 112: Negative or not required by law. Electronically signed by: José Miguel Rock M.D. 09/02/2022 5:19 PM Discharge Plan Visit Data Chief Complaint: Cardiac Assessment ED Provider: Babar Wilburn Discharge Problem: CHF (congestive heart failure), Paroxysmal atrial fibrillation, Hypervolemia Patient Disposition: Admitted As Inpatient Discharge Instructions Interventions: ED Discharge Assessment Last Done: 09/03/22 00:08
[2022-09-03] MEDS ORDERED: ACETAMINOPHEN 325 MG TAB PO PRN (02:16)
[2022-09-03] MEDS ORDERED: POLYETHYLENE (MIRALAX) 17 GM PACK PO PRN (02:16)
[2022-09-03] MEDS ORDERED: NITROGLYCERIN SL 0.4 MG/TAB TAB SL PRN (02:16)
[2022-09-03] MEDS ORDERED: MUPIROCIN 2% OINT 22 GM TUBE EXT PRN (02:16)
--- NOTE | 2022-09-03 02:31 | History and Physical Report ---
DATE OF ADMISSION: 09/02/2022. CHIEF COMPLAINT: Fall and lower extremity edema. HISTORY OF PRESENT ILLNESS: A 77-year-old male with past medical history significant for type 2 diabetes, hyperlipidemia, chronic kidney disease stage III, diabetic peripheral angiopathy, history of chronic diastolic CHF, history of CAD, hypertension, wandering atrial pacemaker, GERD, BPH, urge incontinence, history of hematuria, history of osteoarthritis, history of recurrent cellulitis of lower extremity, history of parkinsonism, dementia associated with Parkinson's disease, iron deficiency anemia, YONATAN INHIBITOR intolerance, cervical spinal stenosis, history of CABG, obesity and generalized anxiety disorder, was brought in by the family because of fall at home in the kitchen and also his worsening lower extremity edema. He was on increased Lasix dose, but still the lower extremity edema is not getting better and also he had a fall. The patient is somewhat hard of hearing, could not get in touch with the family. The patient says he was in the hospital because he fell. He could tell his name, knows that he is in the hospital, could tell his date of , but did not know today's date. Denies any headache. Denies any blurred visions or sore throat. Denies cough, denies fevers. Denies chest pain, denies shortness of breath. Denies nausea, denies abdominal pain. He says his bowels and bladder are moving okay. He says his appetite is okay and is eating fine and he says he ambulates with a walker. He is afebrile, hemodynamically stable in the ER. The patient says he uses oxygen at nighttime. ALLERGIES: YONATAN INHIBITORS. PAST MEDICAL HISTORY: As mentioned above. PAST SURGICAL HISTORY: Carpal tunnel surgery, colonoscopy, right ankle fusion, hammertoe surgery, cervical laminectomy, cataract surgery, tonsillectomy, adenoidectomy, strabismus surgery, right hip replacement. MEDICATIONS: The patient is on amantadine 100 mg p.o. a.m., Eliquis 5 mg p.o. b.i.d., aspirin 81 mg p.o. a.m., atorvastatin 40 mg p.o. a.m., bupropion 150 mg p.o. daily, donepezil 10 mg p.o. at bedtime, dupilumab 300 mg subcutaneous every 2 weeks, Lexapro 20 mg p.m., fluocinonide one application topical daily p.r.n., furosemide 40 mg p.o. 2 times a week, metformin 500 mg p.o. a.m., metoprolol succinate 25 mg p.o. a.m., mupirocin application external b.i.d. p.r.n., Protonix 40 mg p.o. daily, potassium chloride 20 mEq 2 times a week, Flomax 0.4 mg p.o. at bedtime, triamterene/hydrochlorothiazide 37.5/25 mg p.o. five times a week. FAMILY HISTORY: Significant for mother has heart disorder, COPD. Father has stroke, hypertension. Daughter has asthma. Daughter has bipolar disorder. SOCIAL HISTORY: . No smoking, no alcohol, no drug use. Is on medical marijuana. REVIEW OF SYSTEMS: Could not get complete review of systems, the patient is hard of hearing. PHYSICAL EXAMINATION: GENERAL: The patient is alert and awake, oriented x2, not in acute distress. VITAL SIGNS: Temperature 36.8, pulse 77, respiratory rate 20, blood pressure 147/100, oxygen 100% HEENT: Pupils equal, round and reactive to light. Oral mucosa moist. NECK: No JVD or neck masses. CARDIOVASCULAR: S1 and S2 heard. Regular rate and rhythm. No murmur, no gallop. RESPIRATORY SYSTEM: Normal AP diameter. No accessory muscle use. No wheezing, no crackles. ABDOMEN: Soft, bowel sounds present, nontender, no distention. CENTRAL NERVOUS SYSTEM: Alert and awake, oriented to name and place. Speech is okay. No facial droop. Insight is okay. Obeys simple commands. Moves extremities. EXTREMITIES: Bilateral lower extremity, gross lower extremity edema present, no erythema seen. LABORATORY DATA: WBC 4.3, hemoglobin 9.6, hematocrit 29.9, platelets 198. PT 11.2, INR 1.1, APTT 28.5. Sodium 138, potassium 4.5, chloride 99, CO2 of 31, BUN 31, creatinine 1.3, serum glucose 128, calcium 9.3, phosphorus 3.9, magnesium 1.9, total bilirubin 0.4, AST 14, ALT 9, alkaline phosphatase 99. Troponin I high sensitivity 7.3. BNP 73. SARS-CoV-2 rapid test negative. IMAGING DATA: Chest x-ray: Cardiomegaly with mild central pulmonary vascular congestion without overt edema. EKG: Sinus rhythm with PACs, pattern of bigeminy at rate of 91. Nonspecific ST abnormalities. ASSESSMENT AND PLAN: This is a 77-year-old male who presents with a fall at home and also worsening lower extremity edema. 1. Possible acute on chronic diastolic congestive heart failure, worsening lower extremity edema. His Lasix was increased although the patient was not getting better, not able to reach the family. Given a dose of IV Lasix in the ER 40 mg. Continue with IV 40 Lasix daily. Monitor in the tele floor. Consult cardiology in the a.m. Follow I's and O's, daily weights. 2. Status post fall. PT/ OT evaluation when stable. 3. Anemia, seems to be having chronic iron deficiency anemia. As per previous notes, he was getting IV iron infusions. We will follow the labs. Follow up with PCP. 4. History of coronary artery disease, status post coronary artery bypass graft, currently on aspirin, statin and beta augie. 5. Gastroesophageal reflux disease: On Protonix. 6. Benign prostatic hypertrophy: On Flomax. 7. Recent diagnosis of atrial fibrillation, on metoprolol and Eliquis. Await cardiology input. 8. History of Parkinson's: On amantadine. 9. Hypertension: On Lasix and triamterene/hydrochlorothiazide and metoprolol. We will monitor the blood pressure. 10. Chronic kidney disease stage III with creatinine of 1.3. We will follow the labs. 11. History of dementia. We will monitor for any delirium. 11. Depression, on Lexapro. 12. Deep venous thrombosis prophylaxis: On Eliquis. DISPOSITION: Admit to tele floor. PT/OT prior to discharge. Social service to help with discharge planning. Level 1 full code for now. Job ID: [id number] MTDD
[2022-09-03 02:33] LABS: Basophils # (auto) 0.01 K/uL (0-0.2); Basophils % (auto) 0.3 %; Eosinophils # (auto) 0.08 K/uL (0-0.50); Eosinophils % (auto) 2.4 %; Hematocrit (blood only) 27.5 % (40.1-51.0); Hemoglobin 8.6 g/dl (14.0-18.0); Immature Granulocytes # (auto) 0.05 K/uL (0.00-0.02); Immature Granulocytes % (auto) 1.5 %; Lymphocytes # (auto) 0.61 K/uL (1.2-3.4); Lymphocytes % (auto) 18.3 %; Mean Corpuscular Hemoglobin 30.2 pg (25.0-34.0); Mean Corpuscular Hgb Conc 31.3 g/dL (32.0-36.0); Mean Corpuscular Volume 96.5 fL (80.0-100.0); Mean Platelet Volume 9.1 fL (9.4-12.4); Monocytes # (auto) 0.47 K/uL (0.24-0.82); Monocytes % (auto) 14.1 %; Neutrophils # (auto) 2.11 K/uL (1.4-6.5); Neutrophils % (auto) 63.4 %; Platelet Count 162 K/uL (130-400); RDW Coefficient of Variation 14.6 % (11.5-14.5); RDW Standard Deviation 51.7 fL (36.4-46.3); Red Blood Count 2.85 M/uL (4.63-6.08); White Blood Count 3.33 K/ul (4.8-10.8)
[2022-09-03 02:55] LABS: BUN Creatinine Ratio 21.9 (10-20); Creatinine Clr Calc Pharmacy 36.4 ml/min; Est GFR (African American) 44.1 ml/min; Est GFR (Non-African American) 38.1 ml/min; Magnesium 1.9 mg/dl (1.7-2.4); Potassium 4.3 mmol/L (3.5-5.1)
[2022-09-03] MEDS ORDERED: GLUCOSE 40% GEL 15 GM TUBE PO PRN (03:00)
[2022-09-03] MEDS ORDERED: CARBOHYDRATES FOR HYPOGLYCEMIA PO PRN (03:00)
[2022-09-03] MEDS ORDERED: GLUCOSE 10 TAB/TUBE PO PRN (03:00)
[2022-09-03] MEDS ORDERED: GLUCAGON FOR INJ 1 MG VIAL IM PRN (03:00)
[2022-09-03] MEDS ORDERED: DEXTROSE 50% 50 ML SYRINGE IV PRN (03:00)
[2022-09-03 07:23] LABS: Estimated Average Glucose 137 mg/dl; Hemoglobin A1C 6.4 % (4.5-5.6)
--- NOTE | 2022-09-03 08:21 | Electrocardiogram Report ---
Test Reason : Blood Pressure : / mmHG Vent. Rate : 091 BPM Atrial Rate : 091 BPM P-R Int : 136 ms QRS Dur : 084 ms QT Int : 348 ms P-R-T Axes : 000 092 -46 degrees QTc Int : 428 ms Poor data quality, interpretation may be adversely affected Sinus rhythm with Premature atrial complexes in a pattern of bigeminy Premature atrial complexes Abnormal ECG When compared with ECG of 05-JUL-2022 10:32, Premature ventricular complexes are no longer Present Left anterior fascicular block no longer present ST depression in Anterolateral leads no longer present Confirmed by Michael Stanton [id number] on 09/03/2022 8:21:37 AM Referred By: REFERRED SELF Confirmed By:Michael Stanton
[2022-09-03] MEDS: INSULIN ASPART PER UNIT SC SCH ×4 (08:30→21:15)
--- NOTE | 2022-09-03 09:29 | Cardiology Consultation ---
Date of Consultation September 03, 2022 Assessment & Plan (1) Edema of both legs: (2) Chronic heart failure with preserved ejection fraction (HFpEF): (3) Moderate mitral regurgitation: (4) S/P triple vessel bypass: (5) COPD (chronic obstructive pulmonary disease): (6) CKD (chronic kidney disease) stage 3, GFR 30-59 ml/min: (7) Dementia associated with Parkinson's disease: Plan Patient admitted after mechanical fall with perhaps mild decompensation of his chronic heart failure with preserved ejection fraction. He looks good today, volume status is appropriate and leg edema appears at or better than baseline to the patient and me. Managing his outpatient diuretic can be challenging, there is concern that on higher dose of diuretic he could be at risk for progressive renal failure but on lower doses of diuretic is at risk for volume retention. Therefore, ideally a weight-based regimen would work best. He had been on Dyazide with occasional furosemide, in recent months the frequency of furosemide dosing has been increased. At this point, to simplify his regimen would discharge on furosemide 40 mg po every other day with instructions to increase to daily if he has any weight gain of more than 2 pounds overnight or more than 5 pounds in a week. I will arrange for follow-up in heart failure clinic to monitor his volume status. Likely, he has some degree of venous insufficiency and will have chronic leg edema which will vary in severity. Would not base heart failure assessment on leg edema alone, but would monitor weight and assess physical exam when able (neck veins). He appears euvolemic presently, if he is able to ambulate short distances without dyspnea, from my standpoint it would be reasonable for him to be discharged home later today on the diuretic regimen noted above. Thank you for allowing me to dissipate in the care of this pleasant gentleman. History of Present Illness Reason for Consultation: Acute CHF Requesting Physician: Heath Carter MD Attending Physician: Heath Carter MD History of Present Illness 77-year-old man with well-known to me from outpatient care who has CAD (status post CABG 2011), HFpEF, mitral regurgitation, and atrial ectopy, who was admitted 09/02/2022 after mechanical fall when he was noted to have increased leg edema. 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 Other major medical comorbidities include diabetes, stage III chronic kidney disease, mild to moderate dementia associated with Parkinson's disease, and significant COPD (on nocturnal oxygen at home). He notes that his had given him a plate of chili, he set it down and when he turned to reach for his walker he missed and fell to the ground. Family were concerned about the fall and apparent increasing leg edema, so he was brought to the emergency department and admitted. He was given a dose of IV furosemide 40 mg in the ER and seems to have had a good diuresis overnight. At the time of my evaluation this morning, he was sitting comfortably and denied any dyspnea, orthopnea, subjective palpitations, or chest discomfort. His leg swelling was relatively mild and improved versus his recent baseline (right leg is always a bit more swollen than the left). He really had no complaints and would be interested in going home. Allergies Allergy/AdvReac Type Severity Reaction Status Date / Time YONATAN Inhibitors AdvReac Intermediate Cough Verified 09/02/22 21:24 Home Medications Medication Instructions Recorded Confirmed Type atorvastatin 40 mg tablet 40 mg PO QAM 09/02/18 09/02/22 History tamsulosin 0.4 mg capsule 0.4 mg PO HS #90 caps 12/11/19 09/02/22 Rx amantadine HCl 100 mg capsule 100 mg PO QAM 05/22/20 09/02/22 History aspirin 81 mg tablet,delayed 81 mg PO QAM 02/02/21 09/02/22 History release (Negar Low Dose Aspirin) pantoprazole 40 mg tablet,delayed 40 mg PO QAM 02/02/21 09/02/22 History release donepezil 10 mg tablet 10 mg PO HS 05/11/21 09/02/22 History triamterene 37.5 1 tab PO 5XWK 05/11/21 09/02/22 History mg-hydrochlorothiazide 25 mg tablet bupropion HCl 150 mg 24 hr tablet, 150 mg PO DAILY 06/17/21 09/02/22 History extended release fluocinonide 0.05 % topical 1 applic topical DAILY PRN after 06/17/21 09/02/22 History solution bathing metformin 500 mg tablet,extended 500 mg PO QAM 06/17/21 09/02/22 History release 24 hr dupilumab 300 mg/2 mL subcutaneous 300 mg subcut .every 2 weeks 03/03/22 09/02/22 History pen injector (Dupixent) escitalopram oxalate 20 mg tablet 20 mg PO QAM #90 tabs 03/29/22 09/02/22 Rx potassium chloride 20 mEq 20 meq PO 2XWK #30 tabs 04/15/22 09/02/22 Rx tablet,extended release metoprolol succinate 25 mg 25 mg PO QAM #90 tabs 04/19/22 09/02/22 Rx tablet,extended release 24 hr furosemide 40 mg tablet 40 mg PO 2XWK #30 tabs 05/19/22 09/02/22 Rx apixaban 5 mg tablet (Eliquis) 5 mg PO BID 09/02/22 09/02/22 History mupirocin 2 % topical ointment 1 applic EXT BID PRN Skin 09/02/22 09/02/22 History Irritation Patient History Medical History Adverse reaction to anesthetic agent Anxiety Arthritis BPH (benign prostatic hyperplasia) Carpal tunnel syndrome Cataracts, bilateral CHI (closed head injury) CKD (chronic kidney disease) stage 3, GFR 30-59 ml/min 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 Diabetes type 2, controlled Diabetic ulcer of right heel associated with diabetes mellitus due to underlying condition, with fat layer exposed Dyslipidemia Fall GERD (gastroesophageal reflux disease) HTN (hypertension) HTN (hypertension) Lumbar spondylosis Moderate mitral regurgitation Orthostatic hypotension (07/2019) Peripheral arterial disease Primary parkinsonism Seasonal allergies 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 Father Hypertension, Onset Age: 40 at 40 Mother Hypertension COPD (chronic obstructive pulmonary disease) Diabetes Brother Allergies Asthma Denies family history of Prostate cancer Hearing loss No family history of adverse response to anesthesia No family history of bleeding disorder Heart disease Cancer Stroke Social History Smoking Status: Never smoker Hx Alcohol Use: No Hx Substance Use: No Preferred Language: Argentine Communication Ability: Effective Stem Mounter Required: No Beliefs That Will Affect Care: None marital status: Current Living Situation: Spouse Current Living Situation Comment: lives at home with and daughter Other Information That Helps Us Care for You: No Feels Safe at Home: Yes Safety Concerns: Feels Safe At This Time Assistive Devices: Hearing Aid - Bilateral and Walker Physical Exam Physical Exam: Elderly white male appears quite comfortable. BP normotensive. Pulse 83 and regular with frequent ectopy. Respirations 18 and unlabored. Skin: no ecchymoses or generalized lesions. HEENT: unremarkable. Neck: Jugular venous pulse with wide respiratory variation but average Miska at or just above the clavicle, no obvious carotid bruits. Lungs: Mildly decreased breath sounds with dullness at the right base. No w heezing, crackles, rhonchi. No accessory muscle use. Cardiac: regular rhythm with sporadic ectopy, normal S1 and S2, 3-4/6 holosystolic murmur all at the apex rating to left sternal border and axilla no diastolic murmur rub or gallop. Abdomen: benign. Extremities: Chronic 1-2+ pretibial edema (right greater than left) with some wrinkling of the overlying skin suggesting greater edema in the past. Diminished but palpable posterior tibial pulses. Good capillary refill. Neurologic: normal affect, appropriate conversation without obvious evidence of confusion, grossly nonfocal. Results & Data ([facility]) Laboratory Results High-sensitivity troponin negative x3. Hemoglobin 8.6. Normal electrolytes, BUN 37, creatinine 1.69 (recent range 1.192.45) Diagnostic Findings ECG yesterday showed sinus rhythm with PACs in a pattern of bigeminy, otherwise unremarkable. Compared to 07/05/2022 ECG, PVCs no longer present, left anterior fascicular block no longer present, ST depression in anterolateral leads no longer present. Chest x-ray showed cardiomegaly with mild central pulmonary vascular congestion without overt edema. No change compared with 07/05/2022 study. Telemetry showed sinus rhythm with frequent PACs and brief runs of SVT, no compelling evidence of atrial fibrillation. Echocardiogram April 2022 showed EF 60 to 65% with mild LVH, aortic sclerosis, mild AI/mild MR. PG Care Time/CCT Total # of Minutes Spent Total Time Spent with Patient: Total time spent is greater than 50% in coordination of care (as documented) at patient's floor/unit and/or counseling patient: Coding Level of Care Code 66858 Initial Inpt Care Lvl 3 Diagnoses Edema of both legs R60.0 Chronic heart failure with preserved ejection fraction (HFpEF) I50.32 Moderate mitral regurgitation I34.0 S/P triple vessel bypass Z95.1 COPD (chronic obstructive pulmonary disease) J44.1 COPD type: COPD with acute exacerbation CKD (chronic kidney disease) stage 3, GFR 30-59 ml/min N18.30 Dementia associated with Parkinson's disease G20; F02.80 (1) COPD (chronic obstructive pulmonary disease) COPD type: COPD with acute exacerbation Qualified Code(s): J44.1 - Chronic obstructive pulmonary disease with (acute) exacerbation
[2022-09-03] MEDS: APIXABAN 5 MG TABLET PO SCH ×2 (09:44→20:17)
[2022-09-03] MEDS: AMANTADINE HCL 100 MG CAPSULE PO SCH (09:45)
[2022-09-03] MEDS: ESCITALOPRAM OXALATE 20 MG TAB PO SCH (09:45)
[2022-09-03] MEDS: TRIAMTERENE/HCTZ 37.5/25MG TAB PO SCH (09:45)
[2022-09-03] MEDS: buPROPion XL 150 MG TABCR PO SCH (09:45)
[2022-09-03] MEDS: FUROSEMIDE 40 MG/4 ML VIAL IV SCH (09:55)
[2022-09-03] MEDS: METOPROLOL SUCC 25MG EXT REL TAB PO SCH (11:00)
[2022-09-03] MEDS: ASPIRIN 81 MG ECTAB PO SCH (11:01)
[2022-09-03] MEDS: ATORVASTATIN 40 MG TAB PO SCH (11:01)
[2022-09-03] MEDS: PANTOprazole 40 MG TAB PO SCH (11:01)
--- NOTE | 2022-09-03 15:47 | Hospitalist Progress Note ---
Date of Service September 03, 2022 Assessment & Plan (1) Status post fall: Plan: Likely mechanical fall No loss of consciousness and no significant injury Has been having problem with ambulation recently as per the We will get PT and OT evaluation prior to discharge (2) Chronic heart failure with preserved ejection fraction (HFpEF): Plan: Has been complaining of more shortness of breath recently Appreciate cardiology input and recommendation Echocardiogram in 27 April of this year showed EF of 60 to 65% without significant valvular heart disease Will need to have Lasix as advised by the cardiology (3) S/P triple vessel bypass: Plan: No acute cardiac symptoms (4) COPD (chronic obstructive pulmonary disease): Plan: Does not have any COPD exacerbation (5) Diabetes type 2, controlled: Plan: Will have sliding scale insulin coverage (6) Dementia: Plan: No acute delirium (7) HTN (hypertension): (8) GERD (gastroesophageal reflux disease): (9) Primary parkinsonism: Plan DVT prophylaxis Has been Eliquis CODE STATUS Full Admission and Anticipated Discharge Date Admission Date: September 02, 2022 Subjective 09/03/2022 Patient was seen and examined in telemetry unit in presence of the He does not have any symptoms and wants to go home He denies any more chest pain and/or palpitation and no shortness of Review of Systems Review of Systems: All systems reviewed and are unremarkable except as noted below Physical Exam Physical Exam: Sitting on a chair without any apparent distress Constitutional: well developed, well nourished, + ill appearing and + obese Eyes: PERRL, conjunctivae normal, anicteric sclerae ENMT: external ear and nose normal, oropharynx normal Neck: trachea midline, no thyromegaly Respiratory: no respiratory distress Auscultation: + diminished lung sounds and + crackles (Minimal bibasilar crackles) Cardiovascular: Rate/Rhythm: regular rate and regular rhythm; not tachycardic Heart Sounds: normal S1 and normal S2; no murmur Extremities: + edema (1+ edema bilaterally) Gastrointestinal (Abdomen): Inspection/Auscultation: normal bowel sounds; abdomen not distended Percussion/Palpation: abdomen soft; abdomen nontender Musculoskeletal: No acute arthritis in any joint Neurologic: Alert, awake and oriented x3. No focal sensory or no motor deficit appreciated Psychiatric: A+Ox3, euthymic affect Lymphatic: no cervical or axillary lymphadenopathy Results & Data Results & Data ([facility]) Vital Signs (Past 12 Hours) Vital Signs Temp Pulse Pulse Resp BP Pulse Ox O2 Del Method 09/03/22 15:17 80 09/03/22 11:31 36.4 C L 91 H 18 138/63 95 Room Air 09/03/22 10:18 74 09/03/22 10:10 Nasal Cannula 09/03/22 07:28 36.7 C 83 130/77 98 Nasal Cannula O2 Flow Rate 09/03/22 15:17 09/03/22 11:31 09/03/22 10:18 09/03/22 10:10 2 09/03/22 07:28 2 Laboratory Results Short CBC 09/02/22 09/02/22 09/03/22 Range/Units 18:48 21:00 02:22 WBC Cancelled 4.38 L 3.33 L Hgb Cancelled 9.6 L 8.6 L Hct Cancelled 29.9 L 27.5 L Plt Count Cancelled 198 162 BMP 09/02/22 09/02/22 09/03/22 18:48 21:33 02:22 Sodium 138 141 Potassium TNP 4.5 4.3 Chloride 99 101 Carbon Dioxide 31 33 H BUN 31 H 37 H Creatinine 1.38 1.69 H D Glucose 128 H 171 H Calcium 9.3 9.0 Liver Function 09/02/22 09/02/22 Range/Units 18:48 21:33 Total Bilirubin 0.4 (0.2-1.0) mg/dl AST TNP 14 ALT 9 (7-52) U/L Alkaline Phosphatase 99 (34-104) U/L Albumin 3.9 (3.4-5.0) gm/dl Medications Administered Current Inpatient Medications Acetaminophen (Acetaminophen 325 Mg Tab) 650 mg PO Q4H PRN PRN Reason: Pain or Fever Stop: 10/03/22 02:15 Amantadine HCl (Amantadine Hcl 100 Mg Capsule) 100 mg PO [facility] Stop: 10/03/22 08:59 Last Admin: 09/03/22 09:45 Dose: 100 mg Apixaban (Apixaban 5 Mg Tablet) 5 mg PO BID [facility] Stop: 10/03/22 08:59 Last Admin: 09/03/22 09:44 Dose: 5 mg Aspirin (Aspirin 81 Mg Ectab) [facility] [place] Stop: 10/03/22 08:59 Last Admin: 09/03/22 11:01 Dose: 81 mg Atorvastatin Calcium (Atorvastatin 40 Mg Tab) 40 mg PO QAM [facility] Stop: 10/03/22 08:59 Last Admin: 09/03/22 11:01 Dose: 40 mg Bupropion HCl (Bupropion Xl 150 Mg Tabcr) 150 mg PO DAILY JEANETH Stop: 10/03/22 08:59 Last Admin: 09/03/22 09:45 Dose: 150 mg Dextrose (Dextrose 50% 50 Ml Syringe) 25 - 50 ml IV UD PRN; Protocol PRN Reason: Hypoglycemia Protocol Stop: 10/03/22 02:59 Donepezil HCl (Donepezil Hcl 10 Mg Tab) 10 mg PO HS [facility] Stop: 10/03/22 20:59 Escitalopram Oxalate (Escitalopram Oxalate 20 Mg Tab) 20 mg PO QAM [facility] Stop: 10/03/22 08:59 Last Admin: 09/03/22 09:45 Dose: 20 mg Furosemide (Furosemide 40 Mg/4 Ml Vial) 40 mg IV DAILY JEANETH Stop: 10/03/22 08:59 Last Admin: 09/03/22 09:55 Dose: 40 mg Glucagon (Glucagon For Inj 1 Mg Vial) 1 mg IM UD PRN; Protocol PRN Reason: Hypoglycemia Protocol Stop: 10/03/22 02:59 Glucose (Glucose 40% Gel 15 Gm Tube) 15 - 30 gm PO UD PRN; Protocol PRN Reason: Hypoglycemia Protocol Stop: 10/03/22 02:59 Glucose (Glucose 10 Tab/Tube) 4 - 8 tab PO UD PRN; Protocol PRN Reason: Hypoglycemia Protocol Stop: 10/03/22 02:59 Insulin Aspart (Insulin Aspart Per Unit) 0 units SC [facility] Stop: 10/03/22 07:29 Last Admin: 09/03/22 12:31 Dose: 5 units Metoprolol Succinate (Metoprolol Succ 25mg Ext Rel Tab) 25 mg PO QAM [facility] Stop: 10/03/22 08:59 Last Admin: 09/03/22 11:00 Dose: 25 mg Miscellaneous (Fluocinonide 0.05 % Solution- Order Awaiting Action) 1 each N/A QS [facility] Stop: 10/03/22 07:59 Last Admin: 09/03/22 11:01 Dose: Not Given Miscellaneous (Carbohydrates For Hypoglycemia ) 15 - 30 gm PO UD PRN PRN Reason: Hypoglycemia Treatment Stop: 10/03/22 02:59 Mupirocin (Mupirocin 2% Oint 22 Gm Tube) 1 appln EXT BID PRN PRN Reason: Skin Irritation Stop: 10/03/22 02:15 Nitroglycerin (Nitroglycerin Sl 0.4 Mg/Tab Tab) 0.4 mg SL UD PRN PRN Reason: Chest Pain Stop: 10/03/22 02:15 Pantoprazole Sodium (Pantoprazole 40 Mg Tab) 40 mg PO QAM [facility] Stop: 10/03/22 08:59 Last Admin: 09/03/22 11:01 Dose: 40 mg Polyethylene Glycol (Polyethylene (Miralax) 17 Gm Pack) 17 gm PO DAILY PRN PRN Reason: Constipation Stop: 10/03/22 02:15 Tamsulosin HCl (Tamsulosin Hcl 0.4 Mg Cap) 0.4 mg PO HS [facility] Stop: 10/03/22 20:59 Triamterene/Hydrochlorothiazide (Triamterene/Hctz 37.5/25mg Tab) 1 tab PO [id number] [facility] Stop: 10/03/22 08:59 Last Admin: 09/03/22 09:45 Dose: 1 tab (1) COPD (chronic obstructive pulmonary disease) COPD type: COPD with acute exacerbation Qualified Code(s): J44.1 - Chronic obstructive pulmonary disease with (acute) exacerbation (2) Dementia Dementia behavioral disturbance: without behavioral disturbance Dementia type: unspecified type Qualified Code(s): F03.90 - Unspecified dementia without behavioral disturbance
[2022-09-03] MEDS ORDERED: DONEPEZIL HCL 10 MG TAB PO SCH (21:00)
[2022-09-03] MEDS ORDERED: TAMSULOSIN HCL 0.4 MG CAP PO SCH (21:00)
[2022-09-04] MEDS: INSULIN ASPART PER UNIT SC SCH ×2 (08:37→12:42)
[2022-09-04] MEDS: PANTOprazole 40 MG TAB PO SCH (08:40)
[2022-09-04] MEDS: ATORVASTATIN 40 MG TAB PO SCH (08:40)
[2022-09-04] MEDS: ESCITALOPRAM OXALATE 20 MG TAB PO SCH (08:40)
[2022-09-04] MEDS: TRIAMTERENE/HCTZ 37.5/25MG TAB PO SCH (08:40)
[2022-09-04] MEDS: ASPIRIN 81 MG ECTAB PO SCH (08:40)
[2022-09-04] MEDS: buPROPion XL 150 MG TABCR PO SCH (08:40)
[2022-09-04] MEDS: METOPROLOL SUCC 25MG EXT REL TAB PO SCH (08:40)
[2022-09-04] MEDS: AMANTADINE HCL 100 MG CAPSULE PO SCH (08:40)
[2022-09-04] MEDS: FUROSEMIDE 40 MG/4 ML VIAL IV SCH (08:41)
[2022-09-04] MEDS: APIXABAN 5 MG TABLET PO SCH (08:41)
--- NOTE | 2022-09-04 09:10 | Cardiology Progress Note ---
Date of Service September 04, 2022 Assessment & Plan (1) Edema of both legs: (2) Chronic heart failure with preserved ejection fraction (HFpEF): (3) Moderate mitral regurgitation: (4) S/P triple vessel bypass: (5) COPD (chronic obstructive pulmonary disease): (6) CKD (chronic kidney disease) stage 3, GFR 30-59 ml/min: (7) Dementia associated with Parkinson's disease: Plan He is doing well from a cardiac standpoint, no significant issues. He appears euvolemic, would recommend discharging on furosemide 40 mg po every other day with instructions to increase to daily if he has any weight gain of more than 2 pounds overnight or more than 5 pounds in a week. Our scheduling staff will call him tomorrow to arrange follow-up in heart failure clinic in 1 to 2 weeks. Admission and Anticipated Discharge Date Admission Date: September 02, 2022 Subjective No complaints. Denies chest pain, dyspnea, palpitations, or lightheadedness. He had some difficulty ambulating and is awaiting physical therapy. Telemetry showed sinus rhythm in the 80 bpm range with frequent PACs. No significant dysrhythmias. Physical Exam Physical Exam: Appears comfortable. BP low normal. Pulse 80's and regular with frequent ectopy. Respirations 16 and unlabored. Skin: no ecchymoses or generalized lesions. HEENT: unremarkable. Neck: Jugular venous pulse with wide respiratory variation but average meniscus at the clavicle (slightly lower than yesterday), no obvious carotid bruits. Lungs: Mildly decreased breath sounds with dullness at the right base. No wheezing, crackles, rhonchi. No accessory muscle use. Cardiac: regular rhythm with sporadic ectopy, normal S1 and S2, 3-4/6 holosystolic murmur all at the apex rating to left sternal border and axilla no diastolic murmur rub or gallop. Abdomen: benign. Extremities: Trace right leg pretibial edema, none on the left. Neurologic: normal affect, appropriate conversation without obvious evidence of confusion, grossly nonfocal. Results & Data ([facility]) Vital Signs (Past 12 Hours) Vital Signs Temp Pulse Pulse Resp BP Pulse Ox O2 Del Method 09/04/22 07:34 98.1 F 85 16 105/61 90 Room Air 09/04/22 03:32 97.5 F L 95 H 22 121/80 92 Nasal Cannula 09/03/22 23:46 98.1 F 94 H 22 126/61 93 Nasal Cannula 09/03/22 22:48 90 O2 Flow Rate 09/04/22 07:34 09/04/22 03:32 2 09/03/22 23:46 2 09/03/22 22:48 Laboratory Results No new labs today. PG Care Time/CCT Total # of Minutes Spent Total Time Spent with Patient: Total time spent is greater than 50% in coordination of care (as documented) at patient's floor/unit and/or counseling patient: Coding Level of Care Code 78495 Subseq Hosp Care Lvl 2 Diagnoses Edema of both legs R60.0 Chronic heart failure with preserved ejection fraction (HFpEF) I50.32 Moderate mitral regurgitation I34.0 S/P triple vessel bypass Z95.1 COPD (chronic obstructive pulmonary disease) J44.1 COPD type: COPD with acute exacerbation CKD (chronic kidney disease) stage 3, GFR 30-59 ml/min N18.30 Dementia associated with Parkinson's disease G20; F02.80 (1) COPD (chronic obstructive pulmonary disease) COPD type: COPD with acute exacerbation Qualified Code(s): J44.1 - Chronic obstructive pulmonary disease with (acute) exacerbation
--- NOTE | 2022-09-04 10:25 | Hospitalist Progress Note ---
Date of Service September 04, 2022 Assessment & Plan (1) Status post fall: Plan: Likely mechanical fall No loss of consciousness and no significant injury Has been having problem with ambulation recently as per the We will get PT and OT evaluation prior to discharge PT evaluation is done and the patient can go home Will be discharged home this afternoon Advised to take precaution to avoid fall (2) Chronic heart failure with preserved ejection fraction (HFpEF): Plan: Has been complaining of more shortness of breath recently Appreciate cardiology input and recommendation Echocardiogram in 27 April of this year showed EF of 60 to 65% without significant valvular heart disease Will need to have Lasix as advised by the cardiology Will have cardiology appointment as an outpatient (3) S/P triple vessel bypass: Plan: No acute cardiac symptoms (4) COPD (chronic obstructive pulmonary disease): Plan: Does not have any COPD exacerbation (5) Diabetes type 2, controlled: Plan: Will have sliding scale insulin coverage (6) Dementia: Plan: No acute delirium (7) HTN (hypertension): (8) GERD (gastroesophageal reflux disease): (9) Primary parkinsonism: Plan: No parkinsonian symptoms Plan DVT prophylaxis Has been Eliquis CODE STATUS Full Discharge home this afternoon Admission and Anticipated Discharge Date Admission Date: September 02, 2022 Subjective 09/03/2022 Patient was seen and examined in telemetry unit in presence of the He does not have any symptoms and wants to go home He denies any more chest pain and/or palpitation and no shortness of 09/04/2022 The patient was seen and examined in telemetry unit He has been feeling much better and denies any symptoms He has had physical therapy and recommended home Review of Systems Review of Systems: All systems reviewed and are unremarkable except as noted below Physical Exam Physical Exam: Sitting on a chair without any apparent distress Constitutional: well developed, well nourished, + ill appearing and + obese Eyes: PERRL, conjunctivae normal, anicteric sclerae ENMT: external ear and nose normal, oropharynx normal Neck: trachea midline, no thyromegaly Respiratory: no respiratory distress Auscultation: + diminished lung sounds and + crackles (Minimal bibasilar crackles) Cardiovascular: Rate/Rhythm: regular rate and regular rhythm; not tachycardic Heart Sounds: normal S1 and normal S2; no murmur Extremities: + edema (1+ edema bilaterally) Gastrointestinal (Abdomen): Inspection/Auscultation: normal bowel sounds; abdomen not distended Percussion/Palpation: abdomen soft; abdomen nontender Musculoskeletal: No acute arthritis in any joint Neurologic: Alert, awake and oriented x3. No focal sensory or no motor deficit appreciated Psychiatric: A+Ox3, euthymic affect Lymphatic: no cervical or axillary lymphadenopathy Results & Data Results & Data ([facility]) Vital Signs (Past 12 Hours) Vital Signs Temp Pulse Pulse Resp BP Pulse Ox O2 Del Method 09/04/22 09:40 87 09/04/22 07:34 36.7 C 85 16 105/61 90 Room Air 09/04/22 03:32 36.4 C L 95 H 22 121/80 92 Nasal Cannula 09/03/22 23:46 36.7 C 94 H 22 126/61 93 Nasal Cannula 09/03/22 22:48 90 O2 Flow Rate 09/04/22 09:40 09/04/22 07:34 09/04/22 03:32 2 09/03/22 23:46 2 09/03/22 22:48 Medications Administered Current Inpatient Medications Acetaminophen (Acetaminophen 325 Mg Tab) 650 mg PO Q4H PRN PRN Reason: Pain or Fever Stop: 10/03/22 02:15 Amantadine HCl (Amantadine Hcl 100 Mg Capsule) 100 mg PO QAM [facility] Stop: 10/03/22 08:59 Last Admin: 09/04/22 08:40 Dose: 100 mg Apixaban (Apixaban 5 Mg Tablet) 5 mg PO BID [facility] Stop: 10/03/22 08:59 Last Admin: 09/04/22 08:41 Dose: 5 mg Aspirin (Aspirin 81 Mg Ectab) 81 mg PO QAM [facility] Stop: 10/03/22 08:59 Last Admin: 09/04/22 08:40 Dose: 81 mg Atorvastatin Calcium (Atorvastatin 40 Mg Tab) 40 mg PO QAM [facility] Stop: 10/03/22 08:59 Last Admin: 09/04/22 08:40 Dose: 40 mg Bupropion HCl (Bupropion Xl 150 Mg Tabcr) 150 mg PO DAILY [facility] Stop: 10/03/22 08:59 Last Admin: 09/04/22 08:40 Dose: 150 mg Dextrose (Dextrose 50% 50 Ml Syringe) 25 - 50 ml IV UD PRN; Protocol PRN Reason: Hypoglycemia Protocol Stop: 10/03/22 02:59 Donepezil HCl (Donepezil Hcl 10 Mg Tab) 10 mg PO HS [facility] Stop: 10/03/22 20:59 Last Admin: 09/03/22 20:17 Dose: 10 mg Escitalopram Oxalate (Escitalopram Oxalate 20 Mg Tab) 20 mg PO QAM [facility] Stop: 10/03/22 08:59 Last Admin: 09/04/22 08:40 Dose: 20 mg Furosemide (Furosemide 40 Mg/4 Ml Vial) 40 mg IV DAILY [facility] Stop: 10/03/22 08:59 Last Admin: 09/04/22 08:41 Dose: 40 mg Glucagon (Glucagon For Inj 1 Mg Vial) 1 mg IM UD PRN; Protocol PRN Reason: Hypoglycemia Protocol Stop: 10/03/22 02:59 Glucose (Glucose 40% Gel 15 Gm Tube) 15 - 30 gm PO UD PRN; Protocol PRN Reason: Hypoglycemia Protocol Stop: 10/03/22 02:59 Glucose (Glucose 10 Tab/Tube) 4 - 8 tab PO UD PRN; Protocol PRN Reason: Hypoglycemia Protocol Stop: 10/03/22 02:59 Insulin Aspart (Insulin Aspart Per Unit) 0 units SC ACHS [facility] Stop: 10/03/22 07:29 Last Admin: 09/04/22 08:37 Dose: 3 units Metoprolol Succinate (Metoprolol Succ 25mg Ext Rel Tab) 25 mg PO QAM [facility] Stop: 10/03/22 08:59 Last Admin: 09/04/22 08:40 Dose: 25 mg Miscellaneous (Fluocinonide 0.05 % Solution- Order Awaiting Action) 1 each N/A QS [facility] Stop: 10/03/22 07:59 Last Admin: 09/04/22 09:46 Dose: Not Given Miscellaneous (Carbohydrates For Hypoglycemia ) 15 - 30 gm PO UD PRN PRN Reason: Hypoglycemia Treatment Stop: 10/03/22 02:59 Mupirocin (Mupirocin 2% Oint 22 Gm Tube) 1 appln EXT BID PRN PRN Reason: Skin Irritation Stop: 10/03/22 02:15 Nitroglycerin (Nitroglycerin Sl 0.4 Mg/Tab Tab) 0.4 mg SL UD PRN PRN Reason: Chest Pain Stop: 10/03/22 02:15 Pantoprazole Sodium (Pantoprazole 40 Mg Tab) 40 mg PO QAM [facility] Stop: 10/03/22 08:59 Last Admin: 09/04/22 08:40 Dose: 40 mg Polyethylene Glycol (Polyethylene (Miralax) 17 Gm Pack) 17 gm PO DAILY PRN PRN Reason: Constipation Stop: 10/03/22 02:15 Tamsulosin HCl (Tamsulosin Hcl 0.4 Mg Cap) 0.4 mg PO HS [facility] Stop: 10/03/22 20:59 Last Admin: 09/03/22 20:17 Dose: 0.4 mg Triamterene/Hydrochlorothiazide (Triamterene/Hctz 37.5/25mg Tab) 1 tab PO [id number] [facility] Stop: 10/03/22 08:59 Last Admin: 09/04/22 08:40 Dose: 1 tab (1) COPD (chronic obstructive pulmonary disease) COPD type: COPD with acute exacerbation Qualified Code(s): J44.1 - Chronic obstructive pulmonary disease with (acute) exacerbation (2) Dementia Dementia behavioral disturbance: without behavioral disturbance Dementia type: unspecified type Qualified Code(s): F03.90 - Unspecified dementia without behavioral disturbance
--- NOTE | 2022-09-05 08:34 | Discharge Summary ---
Date of Service September 05, 2022 Admission HPI Per Admitting Provider DICTATED BY:Jeff Gibbs MD DATE OF ADMISSION: 09/02/2022. CHIEF COMPLAINT: Fall and lower extremity edema. HISTORY OF PRESENT ILLNESS: A 77-year-old male with past medical history significant for type 2 diabetes, hyperlipidemia, chronic kidney disease stage III, diabetic peripheral angiopathy, history of chronic diastolic CHF, history of CAD, hypertension, wandering atrial pacemaker, GERD, BPH, urge incontinence, history of hematuria, history of osteoarthritis, history of recurrent cellulitis of lower extremity, history of parkinsonism, dementia associated with Parkinson' s disease, iron deficiency anemia, [employer] intolerance, cervical spinal stenosis, history of CABG, obesity and generalized anxiety disorder, was brought in by the family because of fall at home in the kitchen and also his worsening lower extremity edema. He was on increased Lasix dose, but still the lower extremity edema is not getting better and also he had a fall. The patient is somewhat hard of hearing, could not get in touch with the family. The patient says he was in the hospital because he fell. He could tell his name, knows that he is in the hospital, could tell his date of , but did not know today's date. Denies any headache. Denies any blurred visions or sore throat. Denies cough, denies fevers. Denies chest pain, denies shortness of breath. Denies nausea, denies abdominal pain. He says his bowels and bladder are moving okay. He says his appetite is okay and is eating fine and he says he ambulates with a walker. He is afebrile, hemodynamically stable in the ER. The patient says he uses oxygen at nighttime. Admission Exam Per Admitting Provider GENERAL: The patient is alert and awake, oriented x2, not in acute distress. VITAL SIGNS: Temperature 36.8, pulse 77, respiratory rate 20, blood pressure 147/100, oxygen 100% HEENT: Pupils equal, round and reactive to light. Oral mucosa moist. NECK: No JVD or neck masses. CARDIOVASCULAR: S1 and S2 heard. Regular rate and rhythm. No murmur, no gallop. RESPIRATORY SYSTEM: Normal AP diameter. No accessory muscle use. No wheezing, no crackles. ABDOMEN: Soft, bowel sounds present, nontender, no distention. CENTRAL NERVOUS SYSTEM: Alert and awake, oriented to name and place. Speech is okay. No facial droop. Insight is okay. Obeys simple commands. Moves extremities. EXTREMITIES: Bilateral lower extremity, gross lower extremity edema present, no erythema seen. Principal Diagnosis Status post fall, chronic heart failure with preserved EF, bilateral leg edema Discharge Exam Sitting on a chair without any apparent distress Constitutional well developed, well nourished, + ill appearing and + obese Eyes PERRL, conjunctivae normal, anicteric sclerae ENMT external ear and nose normal, oropharynx normal Neck trachea midline, no thyromegaly Respiratory no respiratory distress Auscultation: + diminished lung sounds and + crackles (Minimal bibasilar crackles) Cardiovascular Rate/Rhythm: regular rate and regular rhythm; not tachycardic Heart Sounds: normal S1 and normal S2; no murmur Extremities: + edema (1+ edema bilaterally) Gastrointestinal (Abdomen) Inspection/Auscultation: normal bowel sounds; abdomen not distended Percussion/Palpation: abdomen soft; abdomen nontender Psychiatric A+Ox3, euthymic affect Lymphatic no cervical or axillary lymphadenopathy Discharge Data Allergies Allergy/AdvReac Type Severity Reaction Status Date / Time YONATAN Inhibitors AdvReac Intermediate Cough Verified 09/02/22 21:24 Consultations 09/02/22 22:08 ED Decision to Admit Stat 09/03/22 08:00 Consult Cardiology Routine Hospital Course (1) Status post fall: Likely mechanical fall No loss of consciousness and no significant injury Has been having problem with ambulation recently as per the We will get PT and OT evaluation prior to discharge PT evaluation is done and the patient can go home Will be discharged home this afternoon Advised to take precaution to avoid fall (2) Chronic heart failure with preserved ejection fraction (HFpEF): Has been complaining of more shortness of breath recently Appreciate cardiology input and recommendation Echocardiogram in 27 April of this year showed EF of 60 to 65% without significant valvular heart disease Will need to have Lasix as advised by the cardiology Will have cardiology appointment as an outpatient (3) S/P triple vessel bypass: No acute cardiac symptoms (4) COPD (chronic obstructive pulmonary disease): Does not have any COPD exacerbation (5) Diabetes type 2, controlled: Will have sliding scale insulin coverage (6) Dementia: No acute delirium (7) HTN (hypertension): (8) GERD (gastroesophageal reflux disease): (9) Primary parkinsonism: No parkinsonian symptoms Plan DVT prophylaxis Has been Eliquis CODE STATUS Full Discharge home this afternoon Total Time Total Time Spent Total Time Spent (In Minutes): 35 minutes Discharge Plan Discharge Items Patient Disposition: Home - Self-Care Reason For Visit: LOWER EXT EDEMA, FALL Discharge Diagnosis: Status post fall, chronic heart failure with preserved EF, bilateral leg edema Condition on Discharge: Good Activity: Resume your previous activity Non-emergency contact: Primary Care Provider Call non-emergency contact if: you have any medication questions and your symptoms worsen Follow-up/Referrals: Michael Hinton MD [Primary Care Provider] - (Your doctor's office will call you with an appointment within 7 days) Diet: Heart Healthy and Low Sodium (2gm) Addtl Attending Provider Instructions: Please take precautions to avoid fall. Take your medications as advised Please give appointment with your healthcare providers Take Lasix every other day and Increase to daily if he has any weight gain of more than 2 pounds overnight or more than 5 pounds in a week. Pending Studies at Discharge: No Stand-Alone Forms: My [facility] Probity, Smoking Cessation Medications and DC Order Prescriptions: Continued escitalopram oxalate 20 mg tablet 20 mg PO QAM Qty: 90 3RF potassium chloride 20 mEq tablet extended release 20 meq PO 2XWK Qty: 30 3RF Rx Instructions: Take with Furosemide on Monday & Monday metoprolol succinate 25 mg tablet extended release 24 hr 25 mg PO QAM Qty: 90 3RF Eliquis 5 mg tablet 5 mg PO BID amantadine HCl 100 mg capsule 100 mg PO QAM Rx Instructions: ordered bid but takes only in morning Dupixent Pen 300 mg/2 mL pen injector 300 mg subcut .every 2 weeks Rx Instructions: Every other Monday- donepezil 10 mg tablet 10 mg PO HS triamterene-hydrochlorothiazid 37.5-25 mg tablet 1 tab PO [id number] Rx Instructions: take daily except monday and monday when taking furosemide atorvastatin 40 mg Tablet 40 mg PO QAM tamsulosin 0.4 mg capsule 0.4 mg PO HS Qty: 90 0RF Rx Instructions: Take at bedtime to avoid dizziness. mupirocin 2 % ointment 1 applic EXT BID PRN (Reason: Skin Irritation) Rx Instructions: Apply in both nostrils pantoprazole 40 mg tablet,delayed release (DR/EC) 40 mg PO QAM aspirin [Negar Low Dose Aspirin] 81 mg Tablet,Delayed Release (Dr/Ec) 81 mg PO QAM metformin 500 mg tablet extended release 24 hr 500 mg PO QAM bupropion HCl 150 mg tablet extended release 24 hr 150 mg PO DAILY fluocinonide 0.05 % solution 1 applic TOPICAL DAILY PRN (Reason: after bathing) Rx Instructions: apply to scalp Changed furosemide 40 mg tablet 40 mg PO Q OTHER DAY Qty: 30 3RF Rx Instructions: Take Monday & Monday instead of triamterene /HCTZ Discharge Orders: Discharge Order (Routine); Ordered 09/04/22 Ordered By: Heath Ramos/Other Patient Handouts: Understanding Deep Vein Thrombosis, DVT Complications, What Is Heart Failure, High Blood Sugar (Hyperglycemia), Managing Type 2 Diabetes, Preventing Deep Vein Thrombosis, Heart Failure Admission Data Admit Date/Time: 09/02/22 23:08 Attending Provider: Heath Carter Admit Provider: Jeff Gibbs Primary Care Provider: Michael Hinton Other Providers: Jeff Gibbs ; Michael Stanton Other Interventions: Discharge Summary Assessment (RN) Last Done: 09/04/22 10:53
--- NOTE | 2022-09-13 13:23 | Coding Query ---
To promote full compliance with coding requirements relating to patient care, provider participation is requested in all cases of [employer] uncertainty. Please assist us with the question(s) below: Coding Question(s): The diagnosis below was documented in the H&P and Cardiology Consultation, then subsequently fell off all further documentation. Please indicate if it is still a possible diagnosis or ruled out. Physician's Response(s): Possible acute on chronic diastolic congestive heart failure - (the Acute is documented on H&P) - regarding the possible Acute specificity, and, perhaps mild decompensation of his chronic heart failure with preserved ejection fraction - (the mild decompensation is documented on Cardiology Consultation) - regarding the perhaps mild decompensation of chf ( + ) Possible Acute CHF/mild decompensation CHF Diagnosed ( ) Possible Acute CHF/mild decompensation CHF Ruled out ( ) Other (please specify) MTDD
== END 2022-09-04 14:17 | disposition home or self-care (01) | DRG 291 ==
LOC: ED 16:12 → 4W 23:08
DX: Z79.899 Other long term (current) drug therapy; Z20.822 Contact with and (suspected) exposure to COVID-19; I13.0 Hypertensive heart and chronic kidney disease with heart failure and stage 1 through stage 4 chronic kidney disease, or unspecified chronic kidney disease; M19.90 Unspecified osteoarthritis, unspecified site; Z82.49 Family history of ischemic heart disease and other diseases of the circulatory system; Z68.27 Body mass index [BMI] 27.0-27.9, adult; J44.9 Chronic obstructive pulmonary disease, unspecified; Z82.5 Family history of asthma and other chronic lower respiratory diseases; G20 Parkinson's disease; D50.9 Iron deficiency anemia, unspecified; Z95.1 Presence of aortocoronary bypass graft; Z79.84 Long term (current) use of oral hypoglycemic drugs; E11.51 Type 2 diabetes mellitus with diabetic peripheral angiopathy without gangrene; I34.0 Nonrheumatic mitral (valve) insufficiency; N18.30 Chronic kidney disease, stage 3 unspecified; I50.33 Acute on chronic diastolic (congestive) heart failure; I48.0 Paroxysmal atrial fibrillation; R29.6 Repeated falls; F32.A Depression, unspecified; Z88.8 Allergy status to other drugs, medicaments and biological substances; F41.1 Generalized anxiety disorder; I49.8 Other specified cardiac arrhythmias; I25.10 Atherosclerotic heart disease of native coronary artery without angina pectoris; F02.80 Dementia in other diseases classified elsewhere, unspecified severity, without behavioral disturbance, psychotic disturbance, mood disturbance, and anxiety; Z79.82 Long term (current) use of aspirin; E66.9 Obesity, unspecified; E78.5 Hyperlipidemia, unspecified; Z83.3 Family history of diabetes mellitus; E11.22 Type 2 diabetes mellitus with diabetic chronic kidney disease; Z81.8 Family history of other mental and behavioral disorders; K21.9 Gastro-esophageal reflux disease without esophagitis; N40.0 Benign prostatic hyperplasia without lower urinary tract symptoms

== ENCOUNTER 2022-09-08 15:26 | Inpatient (IN) ==
[2022-09-08 16:29] LABS: Hematocrit (blood only) 13.7 % (40.1-51.0); Hemoglobin 4.3 g/dl (14.0-18.0); Mean Corpuscular Hemoglobin 30.5 pg (25.0-34.0); Mean Corpuscular Hgb Conc 31.4 g/dL (32.0-36.0); Mean Corpuscular Volume 97.2 fL (80.0-100.0); Nucleated RBC # (auto) 0.06 K/uL (0-0); Nucleated RBC % (auto) 0.6 %; Platelet Count 371 K/uL (130-400); RDW Coefficient of Variation 15.9 % (11.5-14.5); RDW Standard Deviation 51.2 fL (36.4-46.3); Red Blood Count 1.41 M/uL (4.63-6.08)
[2022-09-08] MEDS ORDERED: SODIUM CHLORIDE 0.9% 250 ML IV PRN (16:31)
[2022-09-08 16:36] LABS: INR 1.3 (0.9-1.1); Partial Thromboplastin Ratio 0.9; Partial Thromboplastin Time 23.6 Seconds (21.0-31.0); Prothrombin Time 13.6 Seconds (9.0-12.0)
[2022-09-08 16:45] LABS: Anisocytosis Present; Echinocytes 1+; Immature Granulocytes # (auto) 0.51 K/uL (0.00-0.02); Immature Granulocytes % (auto) 5.3 %; Lymphocytes # (auto) 0.65 K/uL (1.2-3.4); Lymphocytes % (auto) 6.8 %; Monocytes # (auto) 0.66 K/uL (0.24-0.82); Monocytes % (auto) 6.9 %; Neutrophils # (auto) 7.78 K/uL (1.4-6.5); Tear Drop Cells 1+
[2022-09-08] MEDS ORDERED: PANTOprazole 80 MG in DEXTROSE 5% 100 ML IV ONE (16:48)
[2022-09-08] MEDS ORDERED: PANTOPRAZOLE BOLUS/DRIP 1 EACH IV STA (16:48)
[2022-09-08 16:54] LABS: Alanine Aminotransferase 34 U/L (7-52); Albumin Globulin Ratio 1.5 (0.9-2); Albumin Level 3.2 gm/dl (3.4-5.0); Alkaline Phosphatase 65 U/L (34-104); Anion Gap 15 (3-11); Aspartate Aminotransferase 29 U/L (13-39); BUN Creatinine Ratio 38.5 (10-20); Bilirubin,Total 0.5 mg/dl (0.2-1.0); Blood Urea Nitrogen 110 mg/dl (6-23); Calcium 8.3 mg/dl (8.5-10.1); Carbon Dioxide 23 mmol/L (21-32); Chloride 95 mmol/L (98-107); Est GFR (African American) 23.3 ml/min; Est GFR (Non-African American) 20.1 ml/min; Globulin 2.1 gm/dl (2.5-4.0); Glucose 216 mg/dl (70-99(Fasting)); Magnesium 2.4 mg/dl (1.7-2.4); Potassium 4.2 mmol/L (3.5-5.1); Sodium 133 mmol/L (136-145); Total Protein 5.3 gm/dl (6.0-8.3)
[2022-09-08 17:01] LABS: Troponin I High Sensitivity 6.2 pg/ml (0-20)
--- NOTE | 2022-09-08 17:12 | Emergency Department Note ---
Impression & Plan Acute GI bleeding, Acute hypotension, Symptomatic anemia ED Provider Note NAME: CHE BURCH AGE: 77 SEX: M : 1945 ARRIVES VIA: Walk-In INFORMANT: Patient, and daughter ED PROVIDER(S): Chandra Lundy DO CHIEF COMPLAINT: weak HPI: Patient is a 77-year-old male who presents the ER brought in as he was referred in by cardiology for feeling very weak and rundown. He denies any headache or change in vision. No chest pain or shortness of breath. No nausea vomiting or diarrhea. He admits to black stools but this has been present for months. They note that he has been following up with the [facility] and receiving hemoglobin transfusions for the past 2 years. They are unsure of why his hemoglobin keeps going low. This has never been discovered. He has an iron transfusion set for tomorrow. He was referred in for further evaluation of the weakness. He denies any headache, chest pain, shortness of breath, nausea vomiting or diarrhea. He was recently admitted and discharged for CHF and falls. ROS: See above HPI for pertinent positives & negatives. A total of 10 systems reviewed and were otherwise negative. PAST MEDICAL HISTORY:See Below PAST SURGICAL HISTORY:See Below FAMILY HISTORY:See Below SOCIAL HISTORY:See Below HOME MEDICATIONS:See Below ALLERGIES:See Below VITALS:See Below PHYSICAL EXAMINATION: GENERAL: Sitting up in bed, alert, ill appearing, pale, disheveled EYE EXAM: normal conjunctiva. OROPHARYNX: no exudate, no erythema, lips, buccal mucosa, and tongue normal and mucous membranes are moist NECK: supple, no nuchal rigidity, no adenopathy, non-tender LUNGS: Clear to auscultation. Normal chest wall mechanics HEART: no murmurs, S1 normal and S2 normal RECTAL: HEM + black stool ABDOMEN: abdomen soft, non-tender, normo-active bowel sounds, no masses, no rebound or guarding. UPPER EXTREMITIES: upper extremities are grossly normal. LOWER EXTREMITIES: No pitting edema. NEURO EXAM: Normal sensorium, cranial nerves II-XII grossly intact, normal speech, no gross weakness of arms, no gross weakness of legs. MEDICAL DECISION MAKING: Patient is a 77-year-old gentleman with past medical history of COPD, CHF, triple bypass who presents the ER on a NOAC for weakness referred in by cardio logy. Due to the protracted wait he spent quite some time in waiting room until his hemoglobin came back at 4.3. Following this he was brought back to the room. IVs were established and additional blood work was obtained. He was typed and crossed for 4 units. Hemoglobin of 4.3 down from 8. This significant drop from his recent admission consequently rectal was performed which showed black stools heme positive. BMP with a creatinine of 2.8 which is significantly elevated from baseline of 1.6. BUN is significantly up as well at 110 which has significantly increased from previous of 37. This is likely combination from the GI bleed and DORYS. Glucose mildly elevated to 16. LFTs bilirubin was unremarkable. Troponin was negative. We did call for 1 unit of uncrossed blood as they noted in the lab that his blood would be crossed within the next 10 minutes and we will get an additional unit following this. He was consented at bedside. Discussed with hospitalist for further admission. Placed on Protonix drip and bolus. Triage Nursing notes reviewed. Limited review of prior medical records performed Vital Signs: reviewed and remarkable for hypotension Differential diagnosis: Differential diagnosis includes etiologies such as diverticulitis, diverticulosis, AVM, coagulopathy, colitis, inflammatory bowel disease, malignancy, Tawana-More tear, esophagitis, peptic ulcer disease, variceal bleed, gastritis, epistaxis, fissure, hemorrhoids, as well as others were entertained. ER treatment provided: See below Diagnostics interpreted by me: ECG: A. fib rate of 73 Left axis Right bundle branch block QTC 405 T wave flattening V3 through V6 Cardiac Monitoring: An order was placed for continuous cardiac monitoring. The monitor shows a rate of 70 with sinus rhythm. Laboratory studies: As stated above and show below. Imaging studies: See below Consultation(s): Discussed with [facility] for further evaluation Procedures: none Critical Care: I have personally spent 35 minutes of critical care time in the direct management of this patient. This includes bedside care, interpretation of diagnostic studies, and testing, discussion with consultants, patient, and family members, and other required patient management activities. This 35 minutes is in excess of all separately billable procedures. 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 Diabetes type 2, controlled Diabetic ulcer of right heel associated with diabetes mellitus due to underlying condition, with fat layer exposed Dyslipidemia Fall GERD (gastroesophageal reflux disease) HTN (hypertension) HTN (hypertension) Lumbar spondylosis Moderate mitral regurgitation Orthostatic hypotension (07/2019) Peripheral arterial disease Primary parkinsonism Seasonal allergies 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 Father Hypertension, Onset Age: 40 at 40 Mother Hypertension COPD (chronic obstructive pulmonary disease) Diabetes Brother Allergies Asthma Denies family history of Prostate cancer Hearing loss No family history of adverse response to anesthesia No family history of bleeding disorder Heart disease Cancer Stroke Social History Smoking Status: Never smoker Hx Alcohol Use: No Hx Substance Use: No Preferred Language: [place] Communication Ability: Effective Shutdown Planner Required: No Beliefs That Will Affect Care: None marital status: Current Living Situation: Spouse Current Living Situation Comment: lives at home with and daughter Feels Safe at Home: Yes Assistive Devices: Oxygen - at Night and Walker Allergies Allergies Allergy/AdvReac Type Severity Reaction Status Date / Time NSAIDS (Non-Steroidal Allergy Rash Unverified 09/08/22 18:16 Anti-Inflamma YONATAN Inhibitors AdvReac Intermediate Cough Verified 09/08/22 13:42 carbidopa AdvReac constipatio Unverified 09/08/22 18:21 n levodopa AdvReac constipatio Unverified 09/08/22 18:21 n Home Meds Home Medications Medication Instructions Recorded Confirmed atorvastatin 40 mg tablet 40 mg PO QAM 09/02/18 09/08/22 amantadine HCl 100 mg capsule 100 mg PO QAM 05/22/20 09/08/22 aspirin 81 mg tablet,delayed 81 mg PO QAM 02/02/21 09/08/22 release (Negar Low Dose Aspirin) pantoprazole 40 mg tablet,delayed 40 mg PO QAM 02/02/21 09/08/22 release donepezil 10 mg tablet 10 mg PO HS 05/11/21 09/08/22 triamterene 37.5 1 tab PO 5XWK 05/11/21 09/08/22 mg-hydrochlorothiazide 25 mg tablet bupropion HCl 150 mg 24 hr tablet, 150 mg PO DAILY 06/17/21 09/08/22 extended release fluocinonide 0.05 % topical 1 applic topical DAILY PRN after 06/17/21 09/08/22 solution bathing metformin 500 mg tablet,extended 500 mg PO QAM 06/17/21 09/08/22 release 24 hr dupilumab 300 mg/2 mL subcutaneous 300 mg subcut .every 2 weeks 03/03/22 09/08/22 pen injector (gate5) apixaban 5 mg tablet (Eliquis) 5 mg PO BID 09/02/22 09/08/22 albuterol sulfate 90 mcg/actuation 2 puff inhalation QID PRN 09/08/22 09/08/22 aerosol inhaler Shortness Of Breath Or Wheezing betamethasone dipropionate 0.05 % 1 applic topical BID PRN Skin 09/08/22 09/08/22 topical cream Irritation ferrous sulfate 325 mg (65 mg 325 mg PO BID 09/08/22 09/08/22 iron) tablet (FeroSul) finasteride 5 mg tablet 5 mg PO QAM 09/08/22 09/08/22 potassium chloride 20 mEq 20 meq PO Q2D 09/08/22 09/08/22 tablet,extended release tamsulosin 0.4 mg capsule 0.4 mg PO QAM 09/08/22 09/08/22 Previous Rx's Medication Instructions Recorded escitalopram oxalate 20 mg tablet 20 mg PO QAM #90 tabs 03/29/22 metoprolol succinate 25 mg 25 mg PO QAM #90 tabs 04/19/22 tablet,extended release 24 hr furosemide 40 mg tablet 40 mg PO Q OTHER DAY #30 tabs 09/04/22 Results & Data (ED) Vital Signs Vital Signs - 24 hr 09/08/22 15:31 09/08/22 16:33 09/08/22 16:33 Temperature 36.7 C Temperature Source Temporal Artery Scan Pulse Rate 92 H Pulse Rate [Apical] 74 Respiratory Rate 20 20 Respiratory Effort / Characteristics Non-Labored Non-Labored Respiratory Depth Normal Normal Blood Pressure 84/47 L Blood Pressure [Right Arm] 107/64 Blood Pressure Mean 59 Blood Pressure Mean [Right Arm] 78 Blood Pressure Position Sitting Pulse Oximetry 98 100 Oxygen Delivery Method Nasal Cannula Nasal Cannula Nasal Cannula Oxygen Flow Rate 2 2 Sepsis Recent Fever Within 48 Hours No Sepsis New/Unexplained Change in Mental Status No Sepsis Action Taken by Nursing No Action Required 09/08/22 17:23 09/08/22 17:39 09/08/22 17:40 Temperature 36.5 C 36.5 C 36.5 C Temperature Source Oral Oral Oral Pulse Rate 70 70 68 Pulse Rate [Apical] Respiratory Rate 28 H 20 20 Respiratory Effort / Characteristics Respiratory Depth Blood Pressure 109/55 L 107/55 L 107/55 L Blood Pressure [Right Arm] Blood Pressure Mean 73 72 72 Blood Pressure Mean [Right Arm] Blood Pressure Position Lying Pulse Oximetry 100 100 100 Oxygen Delivery Method Oxygen Flow Rate 2 2 Sepsis Recent Fever Within 48 Hours Sepsis New/Unexplained Change in Mental Status Sepsis Action Taken by Nursing 09/08/22 17:55 09/08/22 18:54 Temperature Temperature Source Pulse Rate 69 70 Pulse Rate [Apical] Respiratory Rate 22 Respiratory Effort / Characteristics Respiratory Depth Blood Pressure 123/47 L 96/61 L Blood Pressure [Right Arm] Blood Pressure Mean 72 Blood Pressure Mean [Right Arm] Blood Pressure Position Pulse Oximetry 99 96 Oxygen Delivery Method Nasal Cannula Oxygen Flow Rate 2 2 Sepsis Recent Fever Within 48 Hours Sepsis New/Unexplained Change in Mental Status Sepsis Action Taken by Nursing Laboratory Data Result diagrams: 09/08/22 15:55 09/08/22 15:55 Lab Results 09/08/22 09/08/22 09/08/22 Range/Units 15:55 15:55 15:55 WBC 9.60 (4.8-10.8) K/ul RBC 1.41 L (4.63-6.08) M/uL Hgb 4.3 L* (14.0-18.0) g/dl Hct 13.7 L* (40.1-51.0) % MCV 97.2 (80.0-100.0) fL MCH 30.5 (25.0-34.0) pg MCHC 31.4 L (32.0-36.0) g/dL RDW Std Deviation 51.2 H (36.4-46.3) fL RDW Coeff of Anny 15.9 H (11.5-14.5) % Plt Count 371 (130-400) K/uL MPV 10.0 (9.4-12.4) fL Immature Gran % (Auto) 5.3 % Neut % (Auto) 81.0 % Lymph % (Auto) 6.8 % Stewart % (Auto) 6.9 % Eos % (Auto) 0.0 % Baso % (Auto) 0.0 % Neut # (Auto) 7.78 H (1.4-6.5) K/uL Lymph # (Auto) 0.65 L (1.2-3.4) K/uL Stewart # (Auto) 0.66 (0.24-0.82) K/uL Eos # (Auto) 0.00 (0-0.50) K/uL Baso # (Auto) 0.00 (0-0.2) K/uL Immature Gran # (Auto) 0.51 H (0.00-0.02) K/uL Absolute Nucleated RBC 0.06 H (0-0) K/uL Nucleated RBC % (auto) 0.6 % Anisocytosis Present Tear Drop Cells 1+ Echinocytes 1+ PT 13.6 H (9.0-12.0) Seconds INR 1.3 H (0.9-1.1) APTT 23.6 (21.0-31.0) Seconds PTT Ratio 0.9 Sodium 133 L (136-145) mmol/L Potassium 4.2 (3.5-5.1) mmol/L Chloride 95 L (98-107) mmol/L Carbon Dioxide 23 (21-32) mmol/L Anion Gap 15 H (3-11) BUN 110 H (6-23) mg/dl Creatinine 2.86 H (0.6-1.4) mg/dl Est Cr Clr Drug Dosing Not Reportable Est GFR ( Amer) 23.3 ml/min Est GFR (Non-Af Amer) 20.1 ml/min BUN/Creatinine Ratio 38.5 H (10-20) Glucose 216 H (70-99(Fasting)) mg/dl Lactate (0.4-2.0) mmol/L Calcium 8.3 L (8.5-10.1) mg/dl Magnesium 2.4 (1.7-2.4) mg/dl Total Bilirubin 0.5 (0.2-1.0) mg/dl AST 29 (13-39) U/L ALT 34 (7-52) U/L Alkaline Phosphatase 65 (34-104) U/L Troponin I High Sens 6.2 (0-20) pg/ml Total Protein 5.3 L (6.0-8.3) gm/dl Albumin 3.2 L (3.4-5.0) gm/dl Globulin 2.1 L (2.5-4.0) gm/dl Albumin/Globulin Ratio 1.5 (0.9-2) Procalcitonin (0-0.5) ng/ml TSH (0.300-4.500) uIu/ml SARS-CoV-2, RNA, NAAT (NEGATIVE) Blood Type Antibody Screen Crossmatch 09/08/22 09/08/22 09/08/22 Range/Units 15:55 15:55 16:04 WBC (4.8-10.8) K/ul RBC (4.63-6.08) M/uL Hgb (14.0-18.0) g/dl Hct (40.1-51.0) % MCV (80.0-100.0) fL MCH (25.0-34.0) pg MCHC (32.0-36.0) g/dL RDW Std Deviation (36.4-46.3) fL RDW Coeff of Anny (11.5-14.5) % Plt Count (130-400) K/uL MPV (9.4-12.4) fL Immature Gran % (Auto) % Neut % (Auto) % Lymph % (Auto) % Stewart % (Auto) % Eos % (Auto) % Baso % (Auto) % Neut # (Auto) (1.4-6.5) K/uL Lymph # (Auto) (1.2-3.4) K/uL Stewart # (Auto) (0.24-0.82) K/uL Eos # (Auto) (0-0.50) K/uL Baso # (Auto) (0-0.2) K/uL Immature Gran # (Auto) (0.00-0.02) K/uL Absolute Nucleated RBC (0-0) K/uL Nucleated RBC % (auto) % Anisocytosis Tear Drop Cells Echinocytes PT (9.0-12.0) Seconds INR (0.9-1.1) APTT (21.0-31.0) Seconds PTT Ratio Sodium (136-145) mmol/L Potassium (3.5-5.1) mmol/L Chloride (98-107) mmol/L Carbon Dioxide (21-32) mmol/L Anion Gap (3-11) BUN (6-23) mg/dl Creatinine (0.6-1.4) mg/dl Est Cr Clr Drug Dosing Est GFR ( Amer) ml/min Est GFR (Non-Af Amer) ml/min BUN/Creatinine Ratio (10-20) Glucose (70-99(Fasting)) mg/dl Lactate (0.4-2.0) mmol/L Calcium (8.5-10.1) mg/dl Magnesium (1.7-2.4) mg/dl Total Bilirubin (0.2-1.0) mg/dl AST (13-39) U/L ALT (7-52) U/L Alkaline Phosphatase (34-104) U/L Troponin I High Sens (0-20) pg/ml Total Protein (6.0-8.3) gm/dl Albumin (3.4-5.0) gm/dl Globulin (2.5-4.0) gm/dl Albumin/Globulin Ratio (0.9-2) Procalcitonin 0.33 (0-0.5) ng/ml TSH 3.212 (0.300-4.500) uIu/ml SARS-CoV-2, RNA, NAAT (NEGATIVE) Blood Type A Positive Antibody Screen NEGATIVE Crossmatch See Detail 09/08/22 09/08/22 Range/Units 16:55 17:35 WBC (4.8-10.8) K/ul RBC (4.63-6.08) M/uL Hgb (14.0-18.0) g/dl Hct (40.1-51.0) % MCV (80.0-100.0) fL MCH (25.0-34.0) pg MCHC (32.0-36.0) g/dL RDW Std Deviation (36.4-46.3) fL RDW Coeff of Anny (11.5-14.5) % Plt Count (130-400) K/uL MPV (9.4-12.4) fL Immature Gran % (Auto) % Neut % (Auto) % Lymph % (Auto) % Stewart % (Auto) % Eos % (Auto) % Baso % (Auto) % Neut # (Auto) (1.4-6.5) K/uL Lymph # (Auto) (1.2-3.4) K/uL Stewart # (Auto) (0.24-0.82) K/uL Eos # (Auto) (0-0.50) K/uL Baso # (Auto) (0-0.2) K/uL Immature Gran # (Auto) (0.00-0.02) K/uL Absolute Nucleated RBC (0-0) K/uL Nucleated RBC % (auto) % Anisocytosis Tear Drop Cells Echinocytes PT (9.0-12.0) Seconds INR (0.9-1.1) APTT (21.0-31.0) Seconds PTT Ratio Sodium (136-145) mmol/L Potassium (3.5-5.1) mmol/L Chloride (98-107) mmol/L Carbon Dioxide (21-32) mmol/L Anion Gap (3-11) BUN (6-23) mg/dl Creatinine (0.6-1.4) mg/dl Est Cr Clr Drug Dosing Est GFR ( Amer) ml/min Est GFR (Non-Af Amer) ml/min BUN/Creatinine Ratio (10-20) Glucose (70-99(Fasting)) mg/dl Lactate 7.0 H* (0.4-2.0) mmol/L Calcium (8.5-10.1) mg/dl Magnesium (1.7-2.4) mg/dl Total Bilirubin (0.2-1.0) mg/dl AST (13-39) U/L ALT (7-52) U/L Alkaline Phosphatase (34-104) U/L Troponin I High Sens (0-20) pg/ml Total Protein (6.0-8.3) gm/dl Albumin (3.4-5.0) gm/dl Globulin (2.5-4.0) gm/dl Albumin/Globulin Ratio (0.9-2) Procalcitonin (0-0.5) ng/ml TSH (0.300-4.500) uIu/ml SARS-CoV-2, RNA, NAAT NEGATIVE (NEGATIVE) Blood Type Antibody Screen Crossmatch Administered Medications Pantoprazole Sodium 40 mg/ (Dextrose) 100 mls @ 20 mls/hr IV Q5H JEANETH Stop: 10/08/22 17:14 Last Admin: 09/08/22 17:36 Dose: 8 mg/hr, 20 mls/hr Documented By: ALLYSSA Discontinued Medications Pantoprazole Sodium (Protonix Bolus/Drip) 0 mls @ 1 mls/hr IV ONE STA Stop: 09/08/22 16:49 Last Infusion: 09/08/22 18:38 Dose: 0 mls/hr Documented By: Admin: 09/08/22 17:51 Dose: 1 mls/hr Documented By: ALLYSSA Pantoprazole Sodium 80 mg/ (Dextrose) 120 mls @ 400 mls/hr IV NOW ONE Stop: 09/08/22 17:05 Last Infusion: 09/08/22 18:37 Dose: 0 mls/hr Documented By: Admin: 09/08/22 17:36 Dose: 400 mls/hr Documented By: ALLYSSA Imaging Data Radiologist's Impression: Chest X-Ray 09/08/22 16:51 XR chest 1V portable HISTORY: Shortness of breath. Generalized weakness. COMPARISON: Chest 09/02/2022. FINDINGS: No pneumothorax. No pleural effusions. There are low lung volumes with a few bibasilar linear densities likely representing subsegmental atelectasis. Otherwise, lungs are clear. The heart remains mildly enlarged. There are poststernotomy changes again noted. Old, healed left-sided rib fractures. IMPRESSION: No significant change compared to the prior study. No acute process. ACT 112: Negative or not required by law. Electronically signed by: José Miguel Rock M.D. 09/08/2022 5:40 PM Discharge Plan Visit Data Chief Complaint: Hypotension Stated Complaint: PALE,FALLING x3 THIS WEEKS,HYPOTENSTION ED Provider: Chnadra Lundy Discharge Problem: Acute GI bleeding, Acute hypotension, Symptomatic anemia Patient Disposition: Admitted As Inpatient Discharge Instructions Interventions: ED Discharge Assessment Last Done: 09/08/22 18:54 Forms Stand Alone Forms: My [facility] Prescriptions Prescriptions: No Action escitalopram oxalate 20 mg tablet 20 mg PO QAM Qty: 90 3RF metoprolol succinate 25 mg tablet extended release 24 hr 25 mg PO QAM Qty: 90 3RF Eliquis 5 mg tablet 5 mg PO BID amantadine HCl 100 mg capsule 100 mg PO QAM Rx Instructions: ordered bid but takes only in morning Dupixent Pen 300 mg/2 mL pen injector 300 mg subcut .every 2 weeks Rx Instructions: Every other Monday- donepezil 10 mg tablet 10 mg PO HS triamterene-hydrochlorothiazid 37.5-25 mg tablet 1 tab PO [id number] Rx Instructions: take daily except Tuesdays and Fridays. atorvastatin 40 mg Tablet 40 mg PO QAM furosemide 40 mg tablet 40 mg PO Q OTHER DAY Qty: 30 3RF tamsulosin 0.4 mg capsule 0.4 mg PO QAM finasteride 5 mg tablet 5 mg PO QAM ferrous sulfate [FeroSul] 325 mg (65 mg iron) Tablet 325 mg PO BID albuterol sulfate 90 mcg/actuation HFA aerosol inhaler 2 puff INHALATION QID PRN (Reason: Shortness Of Breath Or Wheezing) betamethasone dipropionate [Diprolene] 0.05 % Cream 1 applic TOPICAL BID PRN (Reason: Skin Irritation) Rx Instructions: apply to trunk rash twice daily as needed potassium chloride 20 mEq tablet extended release 20 meq PO Q2D Rx Instructions: Take with Furosemide every other day pantoprazole 40 mg tablet,delayed release (DR/EC) 40 mg PO QAM aspirin [Negar Low Dose Aspirin] 81 mg Tablet,Delayed Release (Dr/Ec) 81 mg PO QAM metformin 500 mg tablet extended release 24 hr 500 mg PO QAM bupropion HCl 150 mg tablet extended release 24 hr 150 mg PO DAILY fluocinonide 0.05 % solution 1 applic TOPICAL DAILY PRN (Reason: after bathing) Rx Instructions: apply to scalp Referrals Referrals: Michael Hinton MD [Primary Care Provider] -
[2022-09-08] MEDS: PANTOprazole 40 MG in DEXTROSE 5% 100 ML IV SCH ×2 (17:36→21:33)
--- NOTE | 2022-09-08 17:42 | XRay Report ---
XR chest 1V portable HISTORY: Shortness of breath. Generalized weakness. COMPARISON: Chest 09/02/2022. FINDINGS: No pneumothorax. No pleural effusions. There are low lung volumes with a few bibasilar line ar densities likely representing subsegmental atelectasis. Otherwise, lungs are clear. The heart hailee ins mildly enlarged. There are poststernotomy changes again noted. Old, healed left-sided rib fractur es. IMPRESSION: No significant change compared to the prior study. No acute process. ACT 112: Negative or not required by law. Electronically signed by: José Miguel Rock M.D. 09/08/2022 5:40 PM
--- NOTE | 2022-09-08 17:51 | History & Physical Report ---
Date of Service September 08, 2022 Assessment & Plan (1) Acute blood loss anemia: Plan: Unclear source of blood loss but Hgb went from 8.6 on 09/03 to 4.3 today - stools are chronically dark but were noted to be heme positive in ED. EGD/Colonoscopy/VCE in were negative for source of GI blood loss. Recently started on Eliquis for atrial fibrillation diagnosed on outpatient EKG. Family has noted increasing falls over the last several days as well, including recent admission for mechanical fall. - Admit to PCU - Started on pantoprazole bolus then gtt in ED - will continue - NPO for now due to concern for active blood loss - ED physician ordered 3 units of PRBCs - will follow H&H for stability post- transfusion - Consult GI to consider repeat scopes with concern for active GI blood loss - Check non-contrast CT abd/pel in view of acute blood loss, new start of anticoagulation, and frequent falls - Will check labs for hemolysis to be complete - Holding Eliquis, aspirin (2) Heme positive stool: (3) Acute hypotension: (4) Status post fall: Plan: Eventual PT/OT once more stable (5) Acute kidney injury superimposed on CKD: Plan: Suspect due to hypoperfusion - will hold diuretics initially but consider resuming once renal function improves with history of heart failure. Daily labs. (6) Chronic heart failure with preserved ejection fraction (HFpEF): (7) Diabetes type 2, controlled: Plan: Holding Metformin while admitted - Insulin sliding scale coverage - Accuchecks (8) Generalized weakness: (9) Coronary artery disease: (10) COPD (chronic obstructive pulmonary disease): (11) Dementia associated with Parkinson's disease: (12) Primary parkinsonism: (13) GERD (gastroesophageal reflux disease): (14) HTN (hypertension): Plan Continue other home medications as appropriate. Pt seen and reviewed with collaborating physician, Dr. Fishman. Plan of care discussed and as outlined above. Code Status: Full code DVT Prophylaxis: SCDs due to concern for acute blood loss Jamie Reza PA-C History of Present Illness Chief Complaint: Weakness, low blood pressure Primary Care Provider: Michael Hinton MD This is a 77 y/o male with a PMH of HFpEF, DM2, primary parkinsonism with associated dementia, CKD3b, HTN, wandering atrial pacemaker, CAD with prior CABG x 3, HUNTER on regular iron infusions, GERD, dyslipidemia, anxiety, and BPH who was sent to the ED from the plunket nurse's office for hypotension and profound weakness. Pt was recently admitted to this facility 09/03-09/04 after a mechanical fall at home. He was following up with cardiology today due to chronic heart failure. History obtained from the patient, his , and his daughter at the bedside. Since being discharged, pt has continued to get weaker and more fatigued. Saw [facility] on Monday and noted to have low BP. Over the last two days, he has had multiple falls at home including sliding off the bedside commode earlier today. He has been more short of breath, even at rest. Dizziness and frequently falling asleep but no clear syncopal episode. No complaints of chest pain or palpitations. His stools are dark at baseline - noted to be heme positive in the ED but no clarita hematochezia. No hematuria, gingival bleeding or significant epistaxis. He was recently started on Eliquis two weeks ago for new onset atrial fibrillation that was diagnosed by EKG done by [facility]. Per notes and family, he was to have a Zio as an outp atient to determine potential need for a pacemaker. Pt follows with hematology for chronic iron deficiency anemia. He was having intermittent iron infusions but recently established with Dr. Smith who was planning to do the infusions more regularly. He has required transfusion for the anemia previously - two units in 2019, two units in 2020. Family denies prior hx of known GI bleeding. Pt reports that his stomach has been more unsettled today with nausea but no vomiting, no significant abdominal pain. Pt has baseline dementia which family reports has been worse the past few days. EGD 07/08/20 - normal esophagus, stomach; patchy erythematous mucosa without active bleeding in the duodenal bulb. Colonoscopy 07/08/20 - multiple small-mouthed diverticula in the sigmoid colon; internal hemorrhoids; o/w without abnormality Video Capsule Endoscopy 10/27/20 - normal appearing small bowel Allergies Allergy/AdvReac Type Severity Reaction Status Date / Time NSAIDS (Non-Steroidal Allergy Rash Unverified 09/08/22 18:16 Anti-Inflamma YONATAN Inhibitors AdvReac Intermediate Cough Verified 09/08/22 13:42 carbidopa AdvReac constipatio Unverified 09/08/22 18:21 n levodopa AdvReac constipatio Unverified 09/08/22 18:21 n Home Medications Medication Instructions Recorded Confirmed Type atorvastatin 40 mg tablet 40 mg PO QAM 09/02/18 09/08/22 History amantadine HCl 100 mg capsule 100 mg PO QAM 05/22/20 09/08/22 History aspirin 81 mg tablet,delayed 81 mg PO QAM 02/02/21 09/08/22 History release (Negar Low Dose Aspirin) pantoprazole 40 mg tablet,delayed 40 mg PO QAM 02/02/21 09/08/22 History release donepezil 10 mg tablet 10 mg PO HS 05/11/21 09/08/22 History triamterene 37.5 1 tab PO 5XWK 05/11/21 09/08/22 History mg-hydrochlorothiazide 25 mg tablet bupropion HCl 150 mg 24 hr tablet, 150 mg PO DAILY 06/17/21 09/08/22 History extended release fluocinonide 0.05 % topical 1 applic topical DAILY PRN after 06/17/21 09/08/22 History solution bathing metformin 500 mg tablet,extended 500 mg PO QAM 06/17/21 09/08/22 History release 24 hr dupilumab 300 mg/2 mL subcutaneous 300 mg subcut .every 2 weeks 03/03/22 09/08/22 History pen injector ([employer]) escitalopram oxalate 20 mg tablet 20 mg PO QAM #90 tabs 03/29/22 09/08/22 Rx metoprolol succinate 25 mg 25 mg PO QAM #90 tabs 04/19/22 09/08/22 Rx tablet,extended release 24 hr apixaban 5 mg tablet (Eliquis) 5 mg PO BID 09/02/22 09/08/22 History furosemide 40 mg tablet 40 mg PO Q OTHER DAY #30 tabs 09/04/22 09/08/22 Rx albuterol sulfate 90 mcg/actuation 2 puff inhalation QID PRN 09/08/22 09/08/22 History aerosol inhaler Shortness Of Breath Or Wheezing betamethasone dipropionate 0.05 % 1 applic topical BID PRN Skin 09/08/22 09/08/22 History topical cream Irritation ferrous sulfate 325 mg (65 mg 325 mg PO BID 09/08/22 09/08/22 History iron) tablet (FeroSul) finasteride 5 mg tablet 5 mg PO QAM 09/08/22 09/08/22 History potassium chloride 20 mEq 20 meq PO Q2D 09/08/22 09/08/22 History tablet,extended release tamsulosin 0.4 mg capsule 0.4 mg PO QAM 09/08/22 09/08/22 History 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 Diabetes type 2, controlled Diabetic ulcer of right heel associated with diabetes mellitus due to underlying condition, with fat layer exposed Dyslipidemia Fall GERD (gastroesophageal reflux disease) HTN (hypertension) HTN (hypertension) Lumbar spondylosis Moderate mitral regurgitation Orthostatic hypotension (07/2019) Peripheral arterial disease Primary parkinsonism Seasonal allergies 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 Father Hypertension, Onset Age: 40 at 40 Mother Hypertension COPD (chronic obstructive pulmonary disease) Diabetes Brother Allergies Asthma Denies family history of Prostate cancer Hearing loss No family history of adverse response to anesthesia No family history of bleeding disorder Heart disease Cancer Stroke Social History Smoking Status: Never smoker Hx Alcohol Use: No Hx Substance Use: No Preferred Language: Swazi Communication Ability: Effective Entry Level Account Representative Required: No Beliefs That Will Affect Care: None marital status: Current Living Situation: Spouse Current Living Situation Comment: Lives at home with spouse Other Information That Helps Us Care for You: No Feels Safe at Home: Yes Safety Concerns: Feels Safe At This Time Assistive Devices: Walker and Wheelchair Review of Systems Review of Systems: All systems reviewed & are unremarkable except as noted in HPI & below Limited due to dementia, confusion Physical Exam Constitutional: + frail appearing (and pale); no acute distress Eyes: conjunctival pallor ENMT: +hard of hearing Neck: trachea midline Respiratory: + labored breathing (mildly increased WOB); no respiratory distress and does not use accessory muscles Auscultation: + diminished lung sounds Cardiovascular: Regular rhythm with occasional ectopy, +systolic murmur trace LE edema Gastrointestinal (Abdomen): Inspection/Auscultation: normal bowel sounds; abdomen not distended Percussion/Palpation: abdomen soft; abdomen nontender Musculoskeletal: Head/Neck/Chest: normocephalic, head atraumatic and neck supple Skin: + pallor Neurologic: moves all extremities; no focal motor deficits Results & Data Results & Data ([facility]) Vital Signs (Past 12 Hours) Vital Signs Temp Pulse Pulse Resp BP BP Pulse Ox 09/08/22 17:23 36.5 C 70 28 H 109/55 L 100 09/08/22 16:33 74 20 107/64 100 09/08/22 16:33 09/08/22 15:31 36.7 C 92 H 20 84/47 L 98 O2 Del Method O2 Flow Rate 09/08/22 17:23 09/08/22 16:33 Nasal Cannula 2 09/08/22 16:33 Nasal Cannula 2 09/08/22 15:31 Nasal Cannula Laboratory Results Laboratory Results - last 24 hr 09/08/22 09/08/22 09/08/22 15:55 15:55 15:55 WBC 9.60 RBC 1.41 L Hgb 4.3 L* Hct 13.7 L* MCV 97.2 MCH 30.5 MCHC 31.4 L RDW Std Deviation 51.2 H RDW Coeff of Anny 15.9 H Plt Count 371 MPV 10.0 Immature Gran % (Auto) 5.3 Neut % (Auto) 81.0 Lymph % (Auto) 6.8 [place] % (Auto) 6.9 Eos % (Auto) 0.0 Baso % (Auto) 0.0 Neut # (Auto) 7.78 H Lymph # (Auto) 0.65 L [place] # (Auto) 0.66 Eos # (Auto) 0.00 Baso # (Auto) 0.00 Immature Gran # (Auto) 0.51 H Absolute Nucleated RBC 0.06 H Nucleated RBC % (auto) 0.6 Anisocytosis Present Tear Drop Cells 1+ Echinocytes 1+ PT 13.6 H INR 1.3 H APTT 23.6 PTT Ratio 0.9 Sodium 133 L Potassium 4.2 Chloride 95 L Carbon Dioxide 23 Anion Gap 15 H BUN 110 H Creatinine 2.86 H Est Cr Clr Drug Dosing Not Reportable Est GFR ( Amer) 23.3 Est GFR (Non-Af Amer) 20.1 BUN/Creatinine Ratio 38.5 H Glucose 216 H Lactate Calcium 8.3 L Magnesium 2.4 Total Bilirubin 0.5 AST 29 ALT 34 Alkaline Phosphatase 65 Troponin I High Sens 6.2 Total Protein 5.3 L Albumin 3.2 L Globulin 2.1 L Albumin/Globulin Ratio 1.5 Procalcitonin TSH SARS-CoV-2, RNA, NAAT Blood Type Antibody Screen Crossmatch 09/08/22 09/08/22 09/08/22 15:55 15:55 16:04 WBC RBC Hgb Hct MCV MCH MCHC RDW Std Deviation RDW Coeff of Anny Plt Count MPV Immature Gran % (Auto) Neut % (Auto) Lymph % (Auto) [place] % (Auto) Eos % (Auto) Baso % (Auto) Neut # (Auto) Lymph # (Auto) [place] # (Auto) Eos # (Auto) Baso # (Auto) Immature Gran # (Auto) Absolute Nucleated RBC Nucleated RBC % (auto) Anisocytosis Tear Drop Cells Echinocytes PT INR APTT PTT Ratio Sodium Potassium Chloride Carbon Dioxide Anion Gap BUN Creatinine Est Cr Clr Drug Dosing Est GFR ( Amer) Est GFR (Non-Af Amer) BUN/Creatinine Ratio Glucose Lactate Calcium Magnesium Total Bilirubin AST ALT Alkaline Phosphatase Troponin I High Sens Total Protein Albumin Globulin Albumin/Globulin Ratio Procalcitonin 0.33 TSH 3.212 SARS-CoV-2, RNA, NAAT Blood Type A Positive Antibody Screen NEGATIVE Crossmatch See Detail 09/08/22 09/08/22 16:55 17:35 WBC RBC Hgb Hct MCV MCH MCHC RDW Std Deviation RDW Coeff of Anny Plt Count MPV Immature Gran % (Auto) Neut % (Auto) Lymph % (Auto) [place] % (Auto) Eos % (Auto) Baso % (Auto) Neut # (Auto) Lymph # (Auto) [place] # (Auto) Eos # (Auto) Baso # (Auto) Immature Gran # (Auto) Absolute Nucleated RBC Nucleated RBC % (auto) Anisocytosis Tear Drop Cells Echinocytes PT INR APTT PTT Ratio Sodium Potassium Chloride Carbon Dioxide Anion Gap BUN Creatinine Est Cr Clr Drug Dosing Est GFR ( Amer) Est GFR (Non-Af Amer) BUN/Creatinine Ratio Glucose Lactate 7.0 H* Calcium Magnesium Total Bilirubin AST ALT Alkaline Phosphatase Troponin I High Sens Total Protein Albumin Globulin Albumin/Globulin Ratio Procalcitonin TSH SARS-CoV-2, RNA, NAAT NEGATIVE Blood Type Antibody Screen Crossmatch Diagnostic Findings Chest X-ray 09/08/22 - IMPRESSION: No significant change compared to the prior study. No acute process. Medications Administered Pantoprazole Sodium 40 mg/ (Dextrose) 100 mls @ 20 mls/hr IV Q5H JEANETH Stop: 10/08/22 17:14 Last Admin: 09/08/22 17:36 Dose: 8 mg/hr, 20 mls/hr Documented By: ALLYSSA Discontinued Medications Pantoprazole Sodium (Protonix Bolus/Drip) 0 mls @ 1 mls/hr IV ONE STA Stop: 09/08/22 16:49 Last Admin: 09/08/22 17:51 Dose: 1 mls/hr Documented By: ALLYSSA Pantoprazole Sodium 80 mg/ (Dextrose) 120 mls @ 400 mls/hr IV NOW ONE Stop: 09/08/22 17:05 Last Admin: 09/08/22 17:36 Dose: 400 mls/hr Documented By: ALLYSSA Code Status & VTE Plan VTE Prophylaxis Plan VTE Prophylaxis will be ordered: Yes Supervising Physician Co-Signing Physician Notes I have seen and examined the patient and have discussed the case with the provider above. I agree with the assessment and plan as stated. 77 yo M recently discharged from the hospital after a fall. Progressive decline after returning home with very low evergy reported. Denies chest pain, lightheadedness or SOB to me now. No overt bleeding. High risk for falls with symptomatic anemia. My physical exam is consistent with that noted above. Labs and imaging from today, reviewed. Continue workup for etiology as outlined above. Cont with replacement and consideration for repeat endoscopy. Interesting that retic count is elevated. Cont to monitor for peripheral smear, MIRI which are pending. DO Kye (1) COPD (chronic obstructive pulmonary disease) COPD type: COPD with acute exacerbation Qualified Code(s): J44.1 - Chronic obstructive pulmonary disease with (acute) exacerbation
--- NOTE | 2022-09-08 18:05 | Electrocardiogram Report ---
Test Reason : Blood Pressure : / mmHG Vent. Rate : 073 BPM Atrial Rate : 078 BPM P-R Int : 000 ms QRS Dur : 090 ms QT Int : 368 ms P-R-T Axes : 000 -21 243 degrees QTc Int : 405 ms Poor data quality, interpretation may be adversely affected Sinus rhythm with frequent Premature atrial complexes Incomplete right bundle branch block Minor ST depression in Anterior leads Abnormal ECG When compared with ECG of 02-SEP-2022 18:41, Minor ST depression in Anterior leads now present HR has decreased by 18 bpm Confirmed by Michael Stanton ([id number]) on 09/08/2022 6:05:16 PM Referred By: Confirmed By:Michael Stanton
[2022-09-08] MEDS ORDERED: FUROSEMIDE INJ 20 MG/2 ML VIAL IV ONE (19:07)
[2022-09-08 19:29] LABS: Reticulocyte % 9.7 % (0.5-2.0); Reticulocytes # 0.14 10^6/uL (0.02-0.10)
[2022-09-08] MEDS: POTASSIUM CHLORIDE CRTAB 20 MEQ TABCR PO SCH (19:36)
[2022-09-08 20:10] LABS: Appearance Urine Clear (Clear); Bilirubin Urine Negative (Negative); Blood Urine Negative (Negative); Color Urine Yellow; Glucose Urine UA Negative (Negative); Ketones Urine Trace (Negative); Leukocyte Esterase Urine Negative (Negative); Nitrite Urine Negative (Negative); Protein Urine Negative (Negative); Specific Gravity Urine 1.017 (1.000-1.030); Urobilinogen Urine Negative (Negative)
[2022-09-08] MEDS ORDERED: CARBOHYDRATES FOR HYPOGLYCEMIA PO PRN (20:11)
[2022-09-08] MEDS ORDERED: GLUCAGON FOR INJ 1 MG VIAL SQ PRN (20:11)
[2022-09-08] MEDS ORDERED: GLUCOSE 40% GEL 15 GM TUBE PO PRN (20:11)
[2022-09-08] MEDS ORDERED: GLUCOSE 10 TAB/TUBE PO PRN (20:11)
[2022-09-08] MEDS ORDERED: DEXTROSE 50% 50 ML SYRINGE IV PRN (20:11)
--- NOTE | 2022-09-08 20:41 | CT Scan Report ---
CT OF THE ABDOMEN AND PELVIS WITHOUT CONTRAST CLINICAL HISTORY: Evaluate for retroperitoneal bleed - falls, worse anemia. COMPARISON STUDY: CT of the abdomen and pelvis July 16, 2020 and KUB May 02, 2022. TECHNIQUE: Axial images of the abdomen and pelvis were obtained without IV contrast. Images were revi ewed in the axial, sagittal, and coronal planes. Automated exposure control was utilized for the barbara dy. A dose lowering technique was utilized adhering to the principles of ALARA. FINDINGS: A few nodular airspace opacities within the left lower lobe are likely infectious. There ar e a few smaller nodular opacities within the right lower lobe as well as subpleural opacity within th e right lower lobe which favors atelectasis. No pneumatosis, free air or portal venous gas is present . Evaluation of the abdomen and pelvis is suboptimal on this unenhanced exam. There are few small gal lstones within the gallbladder. There is no evidence for acute cholecystitis. Unenhanced images of li billie, spleen, adrenal glands, kidneys and pancreas are unremarkable. There is no hydronephrosis. There is no evidence for a bowel obstruction. The prostate is markedly enlarged. There is no hydronephrosi s. No lymphadenopathy is present. No retroperitoneal hematoma is noted. There is a small acute subcut aneous hematoma of the lower back that measures 2.6 x 2 cm. There are acute appearing fractures of th e right transverse processes of L1 and L2. No acute pelvic or hip fracture is present. Right hip arth roplasty is intact. IMPRESSION: 1. No retroperitoneal hematoma identified. 2. Small acute subcutaneous hematoma of the lower back that measures 2.6 x 2 cm. 3. Acute appearing fractures of the right transverse processes of L1 and L2. 4. No evidence for traumatic injury to the solid abdominal viscera on unenhanced exam. 5. No bowel obstruction. 6. Markedly enlarged prostate. ACT 112: Negative or not required by law. Electronically signed by: Calixto Bai M.D. 09/08/2022 8:39 PM
[2022-09-08] MEDS ORDERED: INSULIN ASPART PER UNIT SC SCH (21:00)
[2022-09-08] MEDS: DONEPEZIL HCL 10 MG TAB PO SCH (21:46)
[2022-09-08] MEDS ORDERED: LACTATED RINGER'S 1,000 ML IV STA (22:35)
[2022-09-09] MEDS: LACTATED RINGER'S 1,000 ML IV SCH ×2 (00:31→15:58)
[2022-09-09 02:01] LABS: Hematocrit (blood only) 19.1 % (40.1-51.0); Hemoglobin 6.5 g/dl (14.0-18.0)
[2022-09-09] MEDS: PANTOprazole 40 MG in DEXTROSE 5% 100 ML IV SCH ×5 (02:31→22:52)
[2022-09-09] MEDS ORDERED: SODIUM CHLORIDE 0.9% 250 ML IV PRN ×3 (03:58→08:07)
[2022-09-09] MEDS: INSULIN ASPART PER UNIT SC SCH ×4 (06:10→20:54)
--- NOTE | 2022-09-09 07:13 | Consultation ---
Date of Consultation September 09, 2022 Assessment & Plan (1) Acute blood loss anemia: Patient has had recurring anemia and presents once again with severe anemia though platelet count and white count are in good range. His reticulocyte count is elevated but this is an uncorrected value. With a hemoglobin of 4.3 this initially corrects to just 3%. Moreover, in acute and severe anemia there is often a doubling of the reticulocyte count so many authors would further adjust that by dividing by 2 to just 1.5%. With a hemoglobin this low, his reticulocyte count is far less than it should be. Haptoglobin is pending but given the transfusion and the different rheology of blood flow at very low hemoglobin levels it would not be surprising to see a modest decrease that is nonspecific. The fact that he responds to transfusion both historically and already on this admission without major difficulty sugg ests against any major hemolytic process further affirmed by his completely normal bilirubin levels With white count and platelet counts in normal range, and without any suggestion of pathological forms on peripheral circulation, there is no sign of leukemia or of any other hopkins marrow process. Aplastic anemia should usually present with pancytopenia, myelodysplastic and marrow infiltrating disorders would more often affect all cell lines rather than just the red cells though very early MDS may be associated with a modest anemia, just not one this severe Pure red cell aplasia might present in such fashion but that would be a diagnosis only entertained after his iron replete and we have ruled out the ability to respond to iron levels. Marrow might more definitively evaluate for that but even if present our initial approach would be to transfusion restore iron levels. Given the lower suspicion of this in the absence of more multilineage effects, I do not think that an emergent marrow aspiration biopsy helps our situation in the short run. His ferritin is technically normal and even that may represent an element of pseudonormalization. It is at the low end of normal suggesting that he has suboptimal iron stores and that is coupled with his severe hemoglobin which by the Ganzoni equation suggests that he has a red cell iron deficit of at least 1800 mg. Overall he should probably receive the equivalent of 6978-5011 mg of iron for full repletion. Each red cell unit will supply approximately 200 mg of iron, once he is stabilized with regards to his hemoglobin would strongly consider giving the remainder as intravenous iron. Despite the relatively unremarkable GI work-up 1 year ago (though we still have to better understand the pathology of the multiple polyps removed) he describes intermittent hematochezia, has had multiple documented positive stools, one way or another we need to better understand why it is that he has ongoing GI losses of blood and that will need to be deferred to the gastroenterology team as to what combination of endoscopic, capsule, and/or bleeding studies might be worthwhile. Incidentally note that with his CKD he may have less than optimal erythropoietin levels and that may contribute to his anemia. Not clear that he needs DAVIDE support unless we see a less than robust recovery of hemoglobin with iron repletion. Historically he has been able to get his hemoglobins up to double digits with adequate iron and so probably can just monitor for now. (2) BPH (benign prostatic hyperplasia): Abdominal CT shows a markedly enlarged prostate. Last PSA in our records is from 2018 and was less than 4. This may well need a work-up but even if he has a prostate malignancy its not clear that that contributes to his acute bleeding and anemia. Prostate cancer may infiltrate the bone marrow but again I would expect a pancytopenia if that were the case not an isolated anemia. Certainly this bears in further work-up but perhaps not in acute fashion Also note the rib fractures but these do not have a specific appearance of pathologic fractures nor are there are other signs on imaging of major metastatic lesions to the bone (3) Colon polyps: Report suggest that there were 10 polyps removed from his colon in 2020 which certainly might mira for recurrent polyps as a source for ongoing iron loss and given the current situation and the need to probably at least repeat a colonoscopy. Furthermore, with multiple polyps we may need to explore whether or not there is an underlying polyposis syndrome. Unfortunately, I have yet to receive the confirmatory pathology from those polyps removed previously Plan Immediate stabilization with transfusion and then making up the balance of his Red cell deficit with iron infusions as detailed above Will need to work with GI on how we can best understand why he seems to have ongoing significant GI losses Await haptoglobin but with a normal bilirubin, corrected reticulocyte count that is quite low, and initially good response to transfusion and seems unlikely that there is a major element of hemolysis All we cannot rule out some sort of primary marrow disorder, normal white count and platelet count and historic response to iron suggest against a major primary marrow disease. We will first need to see if he can respond to iron repletion and over the long run if there is a less than optimal return of hemoglobin we may need to consider diagnostic marrow and/or therapeutic ESAs Prostate may need a separate work-up as above. Need to further understand the nature of his previously removed polyps and whether or not he has had rapidly recurring polyps which may point towards an underlying polyposis syndrome that needs further germline genetics review and definition History of Present Illness Reason for Consultation: Patient with a history of recurring iron deficiency anemia apparently related to ongoing GI losses admitted with severe fatigue and hemoglobin of 4.3.Historically he has had transient and modest decreases in white cell and platelet counts but for the most part has not had trouble with hematopoiesis outside of erythropoiesis specifically. He has responded in the past both to transfusions and intravenous iron and at times has nearly normal or in fact normal hemoglobin levels. Comprehensive GI work-up in 2020 at [facility] included an unremarkable EGD and apparently had capsule endoscopy that showed no small bowel lesions. He did have 10 subcentimeter polyps removed from the colon, we have requested but not yet received pathology confirmation of the nature of those polyps. He also had internal hemorrhoids and nonthrombosed external hemorrhoids. He describes intermittent hematochezia and on conversation today that he has had no immediately recent episodes of bright red blood per rectum but that he continues to see that periodically. We note that on 07/29/2022 stool cards he been given from our office are positive x3 and apparently on presentation to the emergency department for this admission he had positive Hemoccult stool as well. 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 He does seem to have at least modest responded to initial transfusion with a rise to hemoglobin above 6 g/dL lying in bed he is currently comfortable Attending Physician: Juanito Stern MD History of Present Illness We follow Mr. Jose in the CCP but not for any malignancy. He has had recurring iron deficiency anemia. Allergies Allergy/AdvReac Type Severity Reaction Status Date / Time NSAIDS (Non-Steroidal Allergy Rash Unverified 09/08/22 18:16 Anti-Inflamma YONATAN Inhibitors AdvReac Intermediate Cough Verified 09/08/22 13:42 carbidopa AdvReac constipatio Unverified 09/08/22 18:21 n levodopa AdvReac constipatio Unverified 09/08/22 18:21 n Home Medications Medication Instructions Recorded Confirmed Type atorvastatin 40 mg tablet 40 mg PO QAM 09/02/18 09/08/22 History amantadine HCl 100 mg capsule 100 mg PO QAM 05/22/20 09/08/22 History aspirin 81 mg tablet,delayed 81 mg PO QAM 02/02/21 09/08/22 History release (Negar Low Dose Aspirin) pantoprazole 40 mg tablet,delayed 40 mg PO QAM 02/02/21 09/08/22 History release donepezil 10 mg tablet 10 mg PO HS 05/11/21 09/08/22 History triamterene 37.5 1 tab PO 5XWK 05/11/21 09/08/22 History mg-hydrochlorothiazide 25 mg tablet bupropion HCl 150 mg 24 hr tablet, 150 mg PO DAILY 06/17/21 09/08/22 History extended release fluocinonide 0.05 % topical 1 applic topical DAILY PRN after 06/17/21 09/08/22 History solution bathing metformin 500 mg tablet,extended 500 mg PO QAM 06/17/21 09/08/22 History release 24 hr dupilumab 300 mg/2 mL subcutaneous 300 mg subcut .every 2 weeks 03/03/22 09/08/22 History pen injector (Dupixent) escitalopram oxalate 20 mg tablet 20 mg PO QAM #90 tabs 03/29/22 09/08/22 Rx metoprolol succinate 25 mg 25 mg PO QAM #90 tabs 04/19/22 09/08/22 Rx tablet,extended release 24 hr apixaban 5 mg tablet (Eliquis) 5 mg PO BID 09/02/22 09/08/22 History furosemide 40 mg tablet 40 mg PO Q OTHER DAY #30 tabs 09/04/22 09/08/22 Rx albuterol sulfate 90 mcg/actuation 2 puff inhalation QID PRN 09/08/22 09/08/22 History aerosol inhaler Shortness Of Breath Or Wheezing betamethasone dipropionate 0.05 % 1 applic topical BID PRN Skin 09/08/22 09/08/22 History topical cream Irritation ferrous sulfate 325 mg (65 mg 325 mg PO BID 09/08/22 09/08/22 History iron) tablet (FeroSul) finasteride 5 mg tablet 5 mg PO QAM 09/08/22 09/08/22 History potassium chloride 20 mEq 20 meq PO Q2D 09/08/22 09/08/22 History tablet,extended release tamsulosin 0.4 mg capsule 0.4 mg PO QAM 09/08/22 09/08/22 History Patient History Medical History Adverse reaction to anesthetic agent Anxiety Arthritis BPH (benign prostatic hyperplasia) Carpal tunnel syndrome Cataracts, bilateral CHI (closed head injury) CKD (chronic kidney disease) stage 3, GFR 30-59 ml/min 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 Diabetes type 2, controlled Diabetic ulcer of right heel associated with diabetes mellitus due to underlying condition, with fat layer exposed Dyslipidemia Fall GERD (gastroesophageal reflux disease) HTN (hypertension) HTN (hypertension) Lumbar spondylosis Moderate mitral regurgitation Orthostatic hypotension (07/2019) Peripheral arterial disease Primary parkinsonism Seasonal allergies 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 Father Hypertension, Onset Age: 40 at 40 Mother Hypertension COPD (chronic obstructive pulmonary disease) Diabetes Brother Allergies Asthma Denies family history of Prostate cancer Hearing loss No family history of adverse response to anesthesia No family history of bleeding disorder Heart disease Cancer Stroke Social History Smoking Status: Never smoker Hx Alcohol Use: No Hx Substance Use: No Preferred Language: Czech Communication Ability: Effective Global Sourcing Manager Required: No Beliefs That Will Affect Care: None marital status: Current Living Situation: Spouse Current Living Situation Comment: Lives at home with spouse Other Information That Helps Us Care for You: No Feels Safe at Home: Yes Safety Concerns: Feels Safe At This Time Assistive Devices: Walker and Wheelchair Physical Exam Physical Exam: Blood pressure 117/72 pulse 64 respirations 18 temperature 36.5 pulse ox 98% on nasal cannula Currently sitting comfortably in bed. He is not tachypneic or at all dyspneic. He has no scleral or skin icterus There is no pathologic adenopathy Lungs do show some decreased breath sounds at the bases but he is moving air well in the mid and upper zones Cardiac rhythm seems regular His abdomen is without marked tenderness or any signs of organomegaly or mass Results & Data ([facility]) Vital Signs (Past 12 Hours) Vital Signs Temp Pulse Pulse Resp BP BP Pulse Ox 09/09/22 06:15 36.7 C 63 18 119/59 L 98 09/09/22 05:45 36.6 C 66 18 114/68 97 09/09/22 05:30 36.5 C 71 18 115/73 98 09/09/22 05:15 36.6 C 66 18 142/83 H 98 09/09/22 05:02 36.7 C 64 18 125/70 98 09/09/22 03:55 36.4 C L 67 18 129/65 100 09/09/22 02:55 36.7 C 65 18 129/82 97 09/09/22 02:25 36.7 C 66 18 115/64 98 09/09/22 02:10 36.6 C 71 18 117/67 98 09/09/22 01:54 36.5 C 65 18 115/68 97 09/09/22 01:37 36.5 C 69 18 117/62 100 09/09/22 01:17 65 09/08/22 20:45 66 09/08/22 23:48 36.6 C 65 18 115/73 96 09/08/22 22:41 36.5 C 61 18 129/76 98 09/08/22 20:11 09/08/22 21:41 36.5 C 70 18 104/61 98 09/08/22 22:18 36.7 C 64 18 114/62 100 09/08/22 21:11 36.3 C L 69 18 113/72 99 09/08/22 20:56 36.4 C L 68 18 108/67 98 09/08/22 20:30 36.3 C L 69 18 113/70 100 09/08/22 20:40 36.4 C L 71 18 117/64 97 09/08/22 19:27 36.9 C 68 21 123/57 L 99 09/08/22 19:18 66 20 123/57 L 92 09/08/22 19:18 Pulse Ox O2 Del Method O2 Del Method O2 Flow Rate O2 Flow Rate 09/09/22 06:15 2 09/09/22 05:45 2 09/09/22 05:30 2 09/09/22 05:15 09/09/22 05:02 2 09/09/22 03:55 2 09/09/22 02:55 09/09/22 02:25 09/09/22 02:10 09/09/22 01:54 09/09/22 01:37 Nasal Cannula 2 09/09/22 01:17 09/08/22 20:45 09/08/22 23:48 09/08/22 22:41 09/08/22 20:11 96 Nasal Cannula 2 09/08/22 21:41 09/08/22 22:18 Nasal Cannula 2 09/08/22 21:11 2 09/08/22 20:56 2 09/08/22 20:30 Nasal Cannula 2 09/08/22 20:40 2 09/08/22 19:27 2 09/08/22 19:18 Nasal Cannula 09/08/22 19:18 Nasal Cannula 2 Laboratory Results Abnormal lab results 09/08/22 09/08/22 09/08/22 Range/Units 15:55 15:55 15:55 RBC 1.41 L (4.63-6.08) M/uL Hgb 4.3 L* (14.0-18.0) g/dl Hct 13.7 L* (40.1-51.0) % MCHC 31.4 L (32.0-36.0) g/dL RDW Std Deviation 51.2 H (36.4-46.3) fL RDW Coeff of Anny 15.9 H (11.5-14.5) % Reticulocyte % (Auto) 9.7 H (0.5-2.0) % Neut # (Auto) 7.78 H (1.4-6.5) K/uL Lymph # (Auto) 0.65 L (1.2-3.4) K/uL Reticulocyte # 0.14 H (0.02-0.10) 10^6/uL Immature Gran # (Auto) 0.51 H (0.00-0.02) K/uL Absolute Nucleated RBC 0.06 H (0-0) K/uL PT 13.6 H (9.0-12.0) Seconds INR 1.3 H (0.9-1.1) Sodium 133 L (136-145) mmol/L Chloride 95 L (98-107) mmol/L Anion Gap 15 H (3-11) BUN 110 H (6-23) mg/dl Creatinine 2.86 H (0.6-1.4) mg/dl BUN/Creatinine Ratio 38.5 H (10-20) Glucose 216 H (70-99(Fasting)) mg/dl POC Glucose (70-99) mg/dl Lactate (0.4-2.0) mmol/L Calcium 8.3 L (8.5-10.1) mg/dl Lactate Dehydrogenase (86-244) U/L Total Protein 5.3 L (6.0-8.3) gm/dl Albumin 3.2 L (3.4-5.0) gm/dl Globulin 2.1 L (2.5-4.0) gm/dl Urine Ketones (Negative) Crossmatch 09/08/22 09/08/22 09/08/22 Range/Units 15:55 16:04 16:55 RBC (4.63-6.08) M/uL Hgb (14.0-18.0) g/dl Hct (40.1-51.0) % MCHC (32.0-36.0) g/dL RDW Std Deviation (36.4-46.3) fL RDW Coeff of Anny (11.5-14.5) % Reticulocyte % (Auto) (0.5-2.0) % Neut # (Auto) (1.4-6.5) K/uL Lymph # (Auto) (1.2-3.4) K/uL Reticulocyte # (0.02-0.10) 10^6/uL Immature Gran # (Auto) (0.00-0.02) K/uL Absolute Nucleated RBC (0-0) K/uL PT (9.0-12.0) Seconds INR (0.9-1.1) Sodium (136-145) mmol/L Chloride (98-107) mmol/L Anion Gap (3-11) BUN (6-23) mg/dl Creatinine (0.6-1.4) mg/dl BUN/Creatinine Ratio (10-20) Glucose (70-99(Fasting)) mg/dl POC Glucose (70-99) mg/dl Lactate 7.0 H* (0.4-2.0) mmol/L Calcium (8.5-10.1) mg/dl Lactate Dehydrogenase 280 H (86-244) U/L Total Protein (6.0-8.3) gm/dl Albumin (3.4-5.0) gm/dl Globulin (2.5-4.0) gm/dl Urine Ketones (Negative) Crossmatch See Detail 09/08/22 09/08/22 09/09/22 Range/Units 19:38 21:07 01:24 RBC (4.63-6.08) M/uL Hgb 6.5 L* (14.0-18.0) g/dl Hct 19.1 L* (40.1-51.0) % MCHC (32.0-36.0) g/dL RDW Std Deviation (36.4-46.3) fL RDW Coeff of Anny (11.5-14.5) % Reticulocyte % (Auto) (0.5-2.0) % Neut # (Auto) (1.4-6.5) K/uL Lymph # (Auto) (1.2-3.4) K/uL Reticulocyte # (0.02-0.10) 10^6/uL Immature Gran # (Auto) (0.00-0.02) K/uL Absolute Nucleated RBC (0-0) K/uL PT (9.0-12.0) Seconds INR (0.9-1.1) Sodium (136-145) mmol/L Chloride (98-107) mmol/L Anion Gap (3-11) BUN (6-23) mg/dl Creatinine (0.6-1.4) mg/dl BUN/Creatinine Ratio (10-20) Glucose (70-99(Fasting)) mg/dl POC Glucose 208 H (70-99) mg/dl Lactate (0.4-2.0) mmol/L Calcium (8.5-10.1) mg/dl Lactate Dehydrogenase (86-244) U/L Total Protein (6.0-8.3) gm/dl Albumin (3.4-5.0) gm/dl Globulin (2.5-4.0) gm/dl Urine Ketones Trace H (Negative) Crossmatch 09/09/22 09/09/22 Range/Units 01:34 05:00 RBC (4.63-6.08) M/uL Hgb (14.0-18.0) g/dl Hct (40.1-51.0) % MCHC (32.0-36.0) g/dL RDW Std Deviation (36.4-46.3) fL RDW Coeff of Anny (11.5-14.5) % Reticulocyte % (Auto) (0.5-2.0) % Neut # (Auto) (1.4-6.5) K/uL Lymph # (Auto) (1.2-3.4) K/uL Reticulocyte # (0.02-0.10) 10^6/uL Immature Gran # (Auto) (0.00-0.02) K/uL Absolute Nucleated RBC (0-0) K/uL PT (9.0-12.0) Seconds INR (0.9-1.1) Sodium (136-145) mmol/L Chloride (98-107) mmol/L Anion Gap (3-11) BUN (6-23) mg/dl Creatinine (0.6-1.4) mg/dl BUN/Creatinine Ratio (10-20) Glucose (70-99(Fasting)) mg/dl POC Glucose 175 H (70-99) mg/dl Lactate 2.4 H* (0.4-2.0) mmol/L Calcium (8.5-10.1) mg/dl Lactate Dehydrogenase (86-244) U/L Total Protein (6.0-8.3) gm/dl Albumin (3.4-5.0) gm/dl Globulin (2.5-4.0) gm/dl Urine Ketones (Negative) Crossmatch Diagnostic Findings Chest X-Ray 09/08/22 16:51 XR chest 1V portable HISTORY: Shortness of breath. Generalized weakness. COMPARISON: Chest 09/02/2022. FINDINGS: No pneumothorax. No pleural effusions. There are low lung volumes with a few bibasilar linear densities likely representing subsegmental atelectasis. Otherwise, lungs are clear. The heart remains mildly enlarged. There are poststernotomy changes again noted. Old, healed left-sided rib fractures. IMPRESSION: No significant change compared to the prior study. No acute process. ACT 112: Negative or not required by law. Electronically signed by: José Miguel Rock M.D. 09/08/2022 5:40 PM Abdomen/Pelvis CT 09/08/22 18:09 CT OF THE ABDOMEN AND PELVIS WITHOUT CONTRAST CLINICAL HISTORY: Evaluate for retroperitoneal bleed - falls, worse anemia. COMPARISON STUDY: CT of the abdomen and pelvis July 16, 2020 and [facility] May 02, 2022. TECHNIQUE: Axial images of the abdomen and pelvis were obtained without IV contrast. Images were reviewed in the axial, sagittal, and coronal planes. Automated exposure control was utilized for the study. A dose lowering technique was utilized adhering to the principles of ALARA. FINDINGS: A few nodular airspace opacities within the left lower lobe are likely infectious. There are a few smaller nodular opacities within the right lower lobe as well as subpleural opacity within the right lower lobe which favors atelectasis. No pneumatosis, free air or portal venous gas is present. Evaluation of the abdomen and pelvis is suboptimal on this unenhanced exam. There are few small gallstones within the gallbladder. There is no evidence for acute cholecystitis. Unenhanced images of liver, spleen, adrenal glands, kidneys and pancreas are unremarkable. There is no hydronephrosis. There is no evidence for a bowel obstruction. The prostate is markedly enlarged. There is no hydronephrosis. No lymphadenopathy is present. No retroperitoneal hematoma is noted. There is a small acute subcutaneous hematoma of the lower back that measures 2.6 x 2 cm. There are acute appearing fractures of the right transverse processes of L1 and L2. No acute pelvic or hip fracture is present. Right hip arthroplasty is intact. IMPRESSION: 1. No retroperitoneal hematoma identified. 2. Small acute subcutaneous hematoma of the lower back that measures 2.6 x 2 cm. 3. Acute appearing fractures of the right transverse processes of L1 and L2. 4. No evidence for traumatic injury to the solid abdominal viscera on unenhanced exam. 5. No bowel obstruction. 6. Markedly enlarged prostate. ACT 112: Negative or not required by law. Electronically signed by: Calixto Bai M.D. 09/08/2022 8:39 PM PG Care Time/CCT Total # of Minutes Spent Total Time Spent with Patient: Total time spent is greater than 50% in coordination of care (as documented) at patient's floor/unit and/or counseling patient: Coding Level of Care Code 58625 Inpt Consult Level 4 History Expanded Problem Focused Exam Expanded Problem Focused Medical Decision Making High Complexity Diagnoses Acute blood loss anemia D62 BPH (benign prostatic hyperplasia) N40.0 Colon polyps K63.5
[2022-09-09] MEDS: buPROPion XL 150 MG TABCR PO SCH (08:00)
[2022-09-09] MEDS: TAMSULOSIN HCL 0.4 MG CAP PO SCH (08:00)
[2022-09-09] MEDS: ATORVASTATIN 40 MG TAB PO SCH (08:00)
[2022-09-09] MEDS: ESCITALOPRAM OXALATE 20 MG TAB PO SCH (08:00)
[2022-09-09] MEDS: FINASTERIDE 5 MG TAB PO SCH (08:00)
--- NOTE | 2022-09-09 08:45 | Gastrointestinal Consultation ---
Date of Consultation September 09, 2022 Assessment & Plan (1) Acute blood loss anemia: 77 year old male HFpEF, T2DM, primary parkinsonism with associated dementia, CKD-3, HTN, pacemaker, CAD with prior CABG x 3, HUNTER on regular iron infusions, GERD, dyslipidemia, anxiety admitted with acute on chronic anemia, HGB 4.3 on arrival with BUN 110. This AM passing dark, black melanotic stool NPO Hold AC IV PPI bolus and drip Trend H&H Transfuse PRN primary team Document output EGD timing to be determined today Supervising Physician Co-Signing Physician Notes I saw and evaluated the patient. For evaluation of anticoagulation. Of note the patient does have history of gastrointestinal bleeding for which he underwent upper endoscopy colonoscopy and wireless capsule endoscopy in 2 years ago. Patient denies having fevers chills sweats or clarita blood from the rectum or hematemesis. Physical examination elderly appearing male no obvious distress no scleral icterus no abdominal tenderness impression: Obtained with melena and a drop. We will plan to do upper endoscopy today as initial evaluation. 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 Pt was seen and evaluated, chart reviewed. Upon entering patient room, he was incontinent of large dark/black bowel movement. He is a poor historian. He suggests he has had some dark stools for a week or so. Does not recall seeing tarry stools or any rectal bleeding until today. He has had some GI upset, nausea, heartburn but no vomiting. He denies lightheadedness, dizziness, CP, SOB. HGB 8.6 --> 4.3 --> 6.5 INR 1.3 BUN 110 s/p 4 units RBC CTAP 2021: . No retroperitoneal hematoma identified. Small acute subcutaneous hematoma of the lower back that measures 2.6 x 2 cm.. Acute appearing fractures of the right transverse processes of L1 and L2.. No evidence for traumatic injury to the solid abdominal viscera on unenhanced exam.No bowel obstruction. Markedly enlarged prostate. EGD 2020: - Normal esophagus. - Normal stomach. - Erythematous duodenopathy. - No specimens collected. Colon 2019: - The examined portion of the ileum was normal. - Diverticulosis in the sigmoid colon. - Internal hemorrhoids. - The examination was otherwise normal on direct and retroflexion views. - No specimens collected. Allergies Allergy/AdvReac Type Severity Reaction Status Date / Time NSAIDS (Non-Steroidal Allergy Rash Verified 09/09/22 13:37 Anti-Inflamma YONATAN Inhibitors AdvReac Intermediate Cough Verified 09/09/22 13:37 carbidopa AdvReac constipatio Verified 09/09/22 13:37 n levodopa AdvReac constipatio Verified 09/09/22 13:37 n Home Medications Medication Instructions Recorded Confirmed Type atorvastatin 40 mg tablet 40 mg PO QAM 09/02/18 09/08/22 History amantadine HCl 100 mg capsule 100 mg PO QAM 05/22/20 09/08/22 History aspirin 81 mg tablet,delayed 81 mg PO QAM 02/02/21 09/08/22 History release (Negar Low Dose Aspirin) pantoprazole 40 mg tablet,delayed 40 mg PO QAM 02/02/21 09/08/22 History release donepezil 10 mg tablet 10 mg PO HS 05/11/21 09/08/22 History triamterene 37.5 1 tab PO 5XWK 05/11/21 09/08/22 History mg-hydrochlorothiazide 25 mg tablet bupropion HCl 150 mg 24 hr tablet, 150 mg PO DAILY 06/17/21 09/08/22 History extended release fluocinonide 0.05 % topical 1 applic topical DAILY PRN after 06/17/21 09/08/22 History solution bathing metformin 500 mg tablet,extended 500 mg PO QAM 06/17/21 09/08/22 History release 24 hr dupilumab 300 mg/2 mL subcutaneous 300 mg subcut .every 2 weeks 03/03/22 09/08/22 History pen injector (Dupixent) escitalopram oxalate 20 mg tablet 20 mg PO QAM #90 tabs 03/29/22 09/08/22 Rx metoprolol succinate 25 mg 25 mg PO QAM #90 tabs 04/19/22 09/08/22 Rx tablet,extended release 24 hr apixaban 5 mg tablet (Eliquis) 5 mg PO BID 09/02/22 09/08/22 History furosemide 40 mg tablet 40 mg PO Q OTHER DAY #30 tabs 09/04/22 09/08/22 Rx albuterol sulfate 90 mcg/actuation 2 puff inhalation QID PRN 09/08/22 09/08/22 History aerosol inhaler Shortness Of Breath Or Wheezing betamethasone dipropionate 0.05 % 1 applic topical BID PRN Skin 09/08/22 09/08/22 History topical cream Irritation ferrous sulfate 325 mg (65 mg 325 mg PO BID 09/08/22 09/08/22 History iron) tablet (FeroSul) finasteride 5 mg tablet 5 mg PO QAM 09/08/22 09/08/22 History potassium chloride 20 mEq 20 meq PO Q2D 09/08/22 09/08/22 History tablet,extended release tamsulosin 0.4 mg capsule 0.4 mg PO QAM 09/08/22 09/08/22 History Patient History Medical History Adverse reaction to anesthetic agent Anxiety Arthritis BPH (benign prostatic hyperplasia) Carpal tunnel syndrome Cataracts, bilateral CHI (closed head injury) CKD (chronic kidney disease) stage 3, GFR 30-59 ml/min 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 Diabetes type 2, controlled Diabetic ulcer of right heel associated with diabetes mellitus due to underlying condition, with fat layer exposed Dyslipidemia Fall GERD (gastroesophageal reflux disease) HTN (hypertension) HTN (hypertension) Lumbar spondylosis Moderate mitral regurgitation Orthostatic hypotension (07/2019) Peripheral arterial disease Primary parkinsonism Seasonal allergies 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 Father Hypertension, Onset Age: 40 at 40 Mother Hypertension COPD (chronic obstructive pulmonary disease) Diabetes Brother Allergies Asthma Denies family history of Prostate cancer Hearing loss No family history of adverse response to anesthesia No family history of bleeding disorder Heart disease Cancer Stroke Social History Smoking Status: Never smoker Hx Alcohol Use: No Hx Substance Use: No Preferred Language: Trinidadian Communication Ability: Effective Communications Programmer Required: No Beliefs That Will Affect Care: None marital status: Current Living Situation: Spouse Current Living Situation Comment: Lives at home with spouse Other Information That Helps Us Care for You: No Feels Safe at Home: Yes Safety Concerns: Feels Safe At This Time Assistive Devices: Oxygen - at Night and Walker Review of Systems Review of Systems: All systems reviewed & are unremarkable except as noted in HPI & below Physical Exam Constitutional: WD/WN, vitals as above Respiratory: normal respiratory effort; no respiratory distress Cardiovascular: Rate/Rhythm: + tachycardic Gastrointestinal (Abdomen): Inspection/Auscultation: normal bowel sounds Percussion/Palpation: abdomen soft; abdomen nontender Skin: no rashes, warm and dry Results & Data ([facility]) Vital Signs (Past 12 Hours) Vital Signs Temp Pulse Pulse Resp BP BP Pulse Ox 09/09/22 08:00 36.4 C L 64 20 116/72 97 09/09/22 08:10 36.5 C 67 14 146/76 H 98 09/09/22 07:15 36.5 C 64 18 117/72 98 09/09/22 06:15 36.7 C 63 18 119/59 L 98 09/09/22 05:45 36.6 C 66 18 114/68 97 09/09/22 05:30 36.5 C 71 18 115/73 98 09/09/22 05:15 36.6 C 66 18 142/83 H 98 09/09/22 05:02 36.7 C 64 18 125/70 98 09/09/22 03:55 36.4 C L 67 18 129/65 100 09/09/22 02:55 36.7 C 65 18 129/82 97 09/09/22 02:25 36.7 C 66 18 115/64 98 09/09/22 02:10 36.6 C 71 18 117/67 98 09/09/22 01:54 36.5 C 65 18 115/68 97 09/09/22 01:37 36.5 C 69 18 117/62 100 09/09/22 01:17 65 09/08/22 20:45 66 09/08/22 23:48 36.6 C 65 18 115/73 96 09/08/22 22:41 36.5 C 61 18 129/76 98 09/08/22 21:41 36.5 C 70 18 104/61 98 09/08/22 22:18 36.7 C 64 18 114/62 100 09/08/22 21:11 36.3 C L 69 18 113/72 99 09/08/22 20:56 36.4 C L 68 18 108/67 98 09/08/22 20:40 36.4 C L 71 18 117/64 97 O2 Del Method O2 Flow Rate 09/09/22 08:00 Nasal Cannula 2 09/09/22 08:10 09/09/22 07:15 09/09/22 06:15 2 09/09/22 05:45 2 09/09/22 05:30 2 09/09/22 05:15 09/09/22 05:02 2 09/09/22 03:55 2 09/09/22 02:55 09/09/22 02:25 09/09/22 02:10 09/09/22 01:54 09/09/22 01:37 Nasal Cannula 2 09/09/22 01:17 09/08/22 20:45 09/08/22 23:48 09/08/22 22:41 09/08/22 21:41 09/08/22 22:18 Nasal Cannula 2 09/08/22 21:11 2 09/08/22 20:56 2 09/08/22 20:40 2 Laboratory Results 09/09/22 09/09/22 09/09/22 Range/Units 05:00 01:34 01:24 WBC (4.8-10.8) K/ul RBC (4.63-6.08) M/uL Hgb 6.5 L* (14.0-18.0) g/dl Hct 19.1 L* (40.1-51.0) % MCV (80.0-100.0) fL MCH (25.0-34.0) pg MCHC (32.0-36.0) g/dL RDW Std Deviation (36.4-46.3) fL RDW Coeff of Anny (11.5-14.5) % Plt Count (130-400) K/uL MPV (9.4-12.4) fL Immature Gran % (Auto) % Neut % (Auto) % Lymph % (Auto) % Simpson % (Auto) % Eos % (Auto) % Baso % (Auto) % Reticulocyte % (Auto) (0.5-2.0) % Neut # (Auto) (1.4-6.5) K/uL Lymph # (Auto) (1.2-3.4) K/uL Simpson # (Auto) (0.24-0.82) K/uL Eos # (Auto) (0-0.50) K/uL Baso # (Auto) (0-0.2) K/uL Reticulocyte # (0.02-0.10) 10^6/uL Immature Gran # (Auto) (0.00-0.02) K/uL Absolute Nucleated RBC (0-0) K/uL Nucleated RBC % (auto) % Anisocytosis Tear Drop Cells Echinocytes Peripher Smr Path Cons Haptoglobin PT (9.0-12.0) Seconds INR (0.9-1.1) APTT (21.0-31.0) Seconds PTT Ratio Sodium (136-145) mmol/L Potassium (3.5-5.1) mmol/L Chloride (98-107) mmol/L Carbon Dioxide (21-32) mmol/L Anion Gap (3-11) BUN (6-23) mg/dl Creatinine (0.6-1.4) mg/dl Est Cr Clr Drug Dosing Est GFR ( Amer) ml/min Est GFR (Non-Af Amer) ml/min BUN/Creatinine Ratio (10-20) Glucose (70-99(Fasting)) mg/dl POC Glucose 175 H (70-99) mg/dl Lactate 2.4 H* (0.4-2.0) mmol/L Calcium (8.5-10.1) mg/dl Magnesium (1.7-2.4) mg/dl Ferritin (8-388) ng/ml Total Bilirubin (0.2-1.0) mg/dl AST (13-39) U/L ALT (7-52) U/L Alkaline Phosphatase (34-104) U/L Lactate Dehydrogenase (86-244) U/L Troponin I High Sens (0-20) pg/ml Total Protein (6.0-8.3) gm/dl Albumin (3.4-5.0) gm/dl Globulin (2.5-4.0) gm/dl Albumin/Globulin Ratio (0.9-2) Procalcitonin (0-0.5) ng/ml TSH (0.300-4.500) uIu/ml Urine Color Urine Appearance (Clear) Urine pH (4.5-7.5) Ur Specific Crawford (1.000-1.030) Urine Protein (Negative) Urine Glucose (UA) (Negative) Urine Ketones (Negative) Urine Blood (Negative) Urine Nitrite (Negative) Urine Bilirubin (Negative) Urine Urobilinogen (Negative) Ur Leukocyte Esterase (Negative) SARS-CoV-2, RNA, NAAT (NEGATIVE) Blood Type Antibody Screen Direct Antiglob Test (Negative) MIRI (IgG-AHG) (Negative) MIRI, Polyspecific (Negative) MIRI C3b, C3d 5 Min (Negative) Crossmatch 09/08/22 09/08/22 09/08/22 Range/Units 21:07 19:38 17:35 WBC (4.8-10.8) K/ul RBC (4.63-6.08) M/uL Hgb (14.0-18.0) g/dl Hct (40.1-51.0) % MCV (80.0-100.0) fL MCH (25.0-34.0) pg MCHC (32.0-36.0) g/dL RDW Std Deviation (36.4-46.3) fL RDW Coeff of Anny (11.5-14.5) % Plt Count (130-400) K/uL MPV (9.4-12.4) fL Immature Gran % (Auto) % Neut % (Auto) % Lymph % (Auto) % Simpson % (Auto) % Eos % (Auto) % Baso % (Auto) % Reticulocyte % (Auto) (0.5-2.0) % Neut # (Auto) (1.4-6.5) K/uL Lymph # (Auto) (1.2-3.4) K/uL Simpson # (Auto) (0.24-0.82) K/uL Eos # (Auto) (0-0.50) K/uL Baso # (Auto) (0-0.2) K/uL Reticulocyte # (0.02-0.10) 10^6/uL Immature Gran # (Auto) (0.00-0.02) K/uL Absolute Nucleated RBC (0-0) K/uL Nucleated RBC % (auto) % Anisocytosis Tear Drop Cells Echinocytes Peripher Smr Path Cons Haptoglobin PT (9.0-12.0) Seconds INR (0.9-1.1) APTT (21.0-31.0) Seconds PTT Ratio Sodium (136-145) mmol/L Potassium (3.5-5.1) mmol/L Chloride (98-107) mmol/L Carbon Dioxide (21-32) mmol/L Anion Gap (3-11) BUN (6-23) mg/dl Creatinine (0.6-1.4) mg/dl Est Cr Clr Drug Dosing Est GFR ( Amer) ml/min Est GFR (Non-Af Amer) ml/min BUN/Creatinine Ratio (10-20) Glucose (70-99(Fasting)) mg/dl POC Glucose 208 H (70-99) mg/dl Lactate (0.4-2.0) mmol/L Calcium (8.5-10.1) mg/dl Magnesium (1.7-2.4) mg/dl Ferritin (8-388) ng/ml Total Bilirubin (0.2-1.0) mg/dl AST (13-39) U/L ALT (7-52) U/L Alkaline Phosphatase (34-104) U/L Lactate Dehydrogenase (86-244) U/L Troponin I High Sens (0-20) pg/ml Total Protein (6.0-8.3) gm/dl Albumin (3.4-5.0) gm/dl Globulin (2.5-4.0) gm/dl Albumin/Globulin Ratio (0.9-2) Procalcitonin (0-0.5) ng/ml TSH (0.300-4.500) uIu/ml Urine Color Yellow Urine Appearance Clear (Clear) Urine pH 5.0 (4.5-7.5) Ur Specific Crawford 1.017 (1.000-1.030) Urine Protein Negative (Negative) Urine Glucose (UA) Negative (Negative) Urine Ketones Trace H (Negative) Urine Blood Negative (Negative) Urine Nitrite Negative (Negative) Urine Bilirubin Negative (Negative) Urine Urobilinogen Negative (Negative) Ur Leukocyte Esterase Negative (Negative) SARS-CoV-2, RNA, NAAT NEGATIVE (NEGATIVE) Blood Type Antibody Screen Direct Antiglob Test (Negative) MIRI (IgG-AHG) (Negative) MIRI, Polyspecific (Negative) MIRI C3b, C3d 5 Min (Negative) Crossmatch 09/08/22 09/08/22 09/08/22 Range/Units 16:55 16:04 15:55 WBC (4.8-10.8) K/ul RBC (4.63-6.08) M/uL Hgb (14.0-18.0) g/dl Hct (40.1-51.0) % MCV (80.0-100.0) fL MCH (25.0-34.0) pg MCHC (32.0-36.0) g/dL RDW Std Deviation (36.4-46.3) fL RDW Coeff of Anny (11.5-14.5) % Plt Count (130-400) K/uL MPV (9.4-12.4) fL Immature Gran % (Auto) % Neut % (Auto) % Lymph % (Auto) % Simpson % (Auto) % Eos % (Auto) % Baso % (Auto) % Reticulocyte % (Auto) (0.5-2.0) % Neut # (Auto) (1.4-6.5) K/uL Lymph # (Auto) (1.2-3.4) K/uL Simpson # (Auto) (0.24-0.82) K/uL Eos # (Auto) (0-0.50) K/uL Baso # (Auto) (0-0.2) K/uL Reticulocyte # (0.02-0.10) 10^6/uL Immature Gran # (Auto) (0.00-0.02) K/uL Absolute Nucleated RBC (0-0) K/uL Nucleated RBC % (auto) % Anisocytosis Tear Drop Cells Echinocytes Peripher Smr Path Cons Haptoglobin Pending PT (9.0-12.0) Seconds INR (0.9-1.1) APTT (21.0-31.0) Seconds PTT Ratio Sodium (136-145) mmol/L Potassium (3.5-5.1) mmol/L Chloride (98-107) mmol/L Carbon Dioxide (21-32) mmol/L Anion Gap (3-11) BUN (6-23) mg/dl Creatinine (0.6-1.4) mg/dl Est Cr Clr Drug Dosing Est GFR ( Amer) ml/min Est GFR (Non-Af Amer) ml/min BUN/Creatinine Ratio (10-20) Glucose (70-99(Fasting)) mg/dl POC Glucose (70-99) mg/dl Lactate 7.0 H* (0.4-2.0) mmol/L Calcium (8.5-10.1) mg/dl Magnesium (1.7-2.4) mg/dl Ferritin (8-388) ng/ml Total Bilirubin (0.2-1.0) mg/dl AST (13-39) U/L ALT (7-52) U/L Alkaline Phosphatase (34-104) U/L Lactate Dehydrogenase (86-244) U/L Troponin I High Sens (0-20) pg/ml Total Protein (6.0-8.3) gm/dl Albumin (3.4-5.0) gm/dl Globulin (2.5-4.0) gm/dl Albumin/Globulin Ratio (0.9-2) Procalcitonin (0-0.5) ng/ml TSH (0.300-4.500) uIu/ml Urine Color Urine Appearance (Clear) Urine pH (4.5-7.5) Ur Specific Crawford (1.000-1.030) Urine Protein (Negative) Urine Glucose (UA) (Negative) Urine Ketones (Negative) Urine Blood (Negative) Urine Nitrite (Negative) Urine Bilirubin (Negative) Urine Urobilinogen (Negative) Ur Leukocyte Esterase (Negative) SARS-CoV-2, RNA, NAAT (NEGATIVE) Blood Type A Positive Antibody Screen NEGATIVE Direct Antiglob Test Negative (Negative) MIRI (IgG-AHG) Neg (Negative) MIRI, Polyspecific Neg (Negative) MIRI C3b, C3d 5 Min Neg (Negative) Crossmatch See Detail 09/08/22 09/08/22 09/08/22 Range/Units 15:55 15:55 15:55 WBC (4.8-10.8) K/ul RBC (4.63-6.08) M/uL Hgb (14.0-18.0) g/dl Hct (40.1-51.0) % MCV (80.0-100.0) fL MCH (25.0-34.0) pg MCHC (32.0-36.0) g/dL RDW Std Deviation (36.4-46.3) fL RDW Coeff of Anny (11.5-14.5) % Plt Count (130-400) K/uL MPV (9.4-12.4) fL Immature Gran % (Auto) % Neut % (Auto) % Lymph % (Auto) % Simpson % (Auto) % Eos % (Auto) % Baso % (Auto) % Reticulocyte % (Auto) (0.5-2.0) % Neut # (Auto) (1.4-6.5) K/uL Lymph # (Auto) (1.2-3.4) K/uL Simpson # (Auto) (0.24-0.82) K/uL Eos # (Auto) (0-0.50) K/uL Baso # (Auto) (0-0.2) K/uL Reticulocyte # (0.02-0.10) 10^6/uL Immature Gran # (Auto) (0.00-0.02) K/uL Absolute Nucleated RBC (0-0) K/uL Nucleated RBC % (auto) % Anisocytosis Tear Drop Cells Echinocytes Peripher Smr Path Cons Haptoglobin PT (9.0-12.0) Seconds INR (0.9-1.1) APTT (21.0-31.0) Seconds PTT Ratio Sodium (136-145) mmol/L Potassium (3.5-5.1) mmol/L Chloride (98-107) mmol/L Carbon Dioxide (21-32) mmol/L Anion Gap (3-11) BUN (6-23) mg/dl Creatinine (0.6-1.4) mg/dl Est Cr Clr Drug Dosing Est GFR ( Amer) ml/min Est GFR (Non-Af Amer) ml/min BUN/Creatinine Ratio (10-20) Glucose (70-99(Fasting)) mg/dl POC Glucose (70-99) mg/dl Lactate (0.4-2.0) mmol/L Calcium (8.5-10.1) mg/dl Magnesium (1.7-2.4) mg/dl Ferritin 44.1 (8-388) ng/ml Total Bilirubin (0.2-1.0) mg/dl AST (13-39) U/L ALT (7-52) U/L Alkaline Phosphatase (34-104) U/L Lactate Dehydrogenase 280 H (86-244) U/L Troponin I High Sens (0-20) pg/ml Total Protein (6.0-8.3) gm/dl Albumin (3.4-5.0) gm/dl Globulin (2.5-4.0) gm/dl Albumin/Globulin Ratio (0.9-2) Procalcitonin (0-0.5) ng/ml TSH 3.212 (0.300-4.500) uIu/ml Urine Color Urine Appearance (Clear) Urine pH (4.5-7.5) Ur Specific Crawford (1.000-1.030) Urine Protein (Negative) Urine Glucose (UA) (Negative) Urine Ketones (Negative) Urine Blood (Negative) Urine Nitrite (Negative) Urine Bilirubin (Negative) Urine Urobilinogen (Negative) Ur Leukocyte Esterase (Negative) SARS-CoV-2, RNA, NAAT (NEGATIVE) Blood Type Antibody Screen Direct Antiglob Test (Negative) MIRI (IgG-AHG) (Negative) MIRI, Polyspecific (Negative) MIRI C3b, C3d 5 Min (Negative) Crossmatch 09/08/22 09/08/22 09/08/22 Range/Units 15:55 15:55 15:55 WBC (4.8-10.8) K/ul RBC (4.63-6.08) M/uL Hgb (14.0-18.0) g/dl Hct (40.1-51.0) % MCV (80.0-100.0) fL MCH (25.0-34.0) pg MCHC (32.0-36.0) g/dL RDW Std Deviation (36.4-46.3) fL RDW Coeff of Anny (11.5-14.5) % Plt Count (130-400) K/uL MPV (9.4-12.4) fL Immature Gran % (Auto) % Neut % (Auto) % Lymph % (Auto) % Simpson % (Auto) % Eos % (Auto) % Baso % (Auto) % Reticulocyte % (Auto) (0.5-2.0) % Neut # (Auto) (1.4-6.5) K/uL Lymph # (Auto) (1.2-3.4) K/uL Simpson # (Auto) (0.24-0.82) K/uL Eos # (Auto) (0-0.50) K/uL Baso # (Auto) (0-0.2) K/uL Reticulocyte # (0.02-0.10) 10^6/uL Immature Gran # (Auto) (0.00-0.02) K/uL Absolute Nucleated RBC (0-0) K/uL Nucleated RBC % (auto) % Anisocytosis Tear Drop Cells Echinocytes Peripher Smr Path Cons Haptoglobin PT 13.6 H (9.0-12.0) Seconds INR 1.3 H (0.9-1.1) APTT 23.6 (21.0-31.0) Seconds PTT Ratio 0.9 Sodium 133 L (136-145) mmol/L Potassium 4.2 (3.5-5.1) mmol/L Chloride 95 L (98-107) mmol/L Carbon Dioxide 23 (21-32) mmol/L Anion Gap 15 H (3-11) BUN 110 H (6-23) mg/dl Creatinine 2.86 H (0.6-1.4) mg/dl Est Cr Clr Drug Dosing Not Reportable Est GFR ( Amer) 23.3 ml/min Est GFR (Non-Af Amer) 20.1 ml/min BUN/Creatinine Ratio 38.5 H (10-20) Glucose 216 H (70-99(Fasting)) mg/dl POC Glucose (70-99) mg/dl Lactate (0.4-2.0) mmol/L Calcium 8.3 L (8.5-10.1) mg/dl Magnesium 2.4 (1.7-2.4) mg/dl Ferritin (8-388) ng/ml Total Bilirubin 0.5 (0.2-1.0) mg/dl AST 29 (13-39) U/L ALT 34 (7-52) U/L Alkaline Phosphatase 65 (34-104) U/L Lactate Dehydrogenase (86-244) U/L Troponin I High Sens 6.2 (0-20) pg/ml Total Protein 5.3 L (6.0-8.3) gm/dl Albumin 3.2 L (3.4-5.0) gm/dl Globulin 2.1 L (2.5-4.0) gm/dl Albumin/Globulin Ratio 1.5 (0.9-2) Procalcitonin 0.33 (0-0.5) ng/ml TSH (0.300-4.500) uIu/ml Urine Color Urine Appearance (Clear) Urine pH (4.5-7.5) Ur Specific Crawford (1.000-1.030) Urine Protein (Negative) Urine Glucose (UA) (Negative) Urine Ketones (Negative) Urine Blood (Negative) Urine Nitrite (Negative) Urine Bilirubin (Negative) Urine Urobilinogen (Negative) Ur Leukocyte Esterase (Negative) SARS-CoV-2, RNA, NAAT (NEGATIVE) Blood Type Antibody Screen Direct Antiglob Test (Negative) MIRI (IgG-AHG) (Negative) MIRI, Polyspecific (Negative) MIRI C3b, C3d 5 Min (Negative) Crossmatch 09/08/22 Range/Units 15:55 WBC 9.60 (4.8-10.8) K/ul RBC 1.41 L (4.63-6.08) M/uL Hgb 4.3 L* (14.0-18.0) g/dl Hct 13.7 L* (40.1-51.0) % MCV 97.2 (80.0-100.0) fL MCH 30.5 (25.0-34.0) pg MCHC 31.4 L (32.0-36.0) g/dL RDW Std Deviation 51.2 H (36.4-46.3) fL RDW Coeff of Anny 15.9 H (11.5-14.5) % Plt Count 371 (130-400) K/uL MPV 10.0 (9.4-12.4) fL Immature Gran % (Auto) 5.3 % Neut % (Auto) 81.0 % Lymph % (Auto) 6.8 % Simpson % (Auto) 6.9 % Eos % (Auto) 0.0 % Baso % (Auto) 0.0 % Reticulocyte % (Auto) 9.7 H (0.5-2.0) % Neut # (Auto) 7.78 H (1.4-6.5) K/uL Lymph # (Auto) 0.65 L (1.2-3.4) K/uL Simpson # (Auto) 0.66 (0.24-0.82) K/uL Eos # (Auto) 0.00 (0-0.50) K/uL Baso # (Auto) 0.00 (0-0.2) K/uL Reticulocyte # 0.14 H (0.02-0.10) 10^6/uL Immature Gran # (Auto) 0.51 H (0.00-0.02) K/uL Absolute Nucleated RBC 0.06 H (0-0) K/uL Nucleated RBC % (auto) 0.6 % Anisocytosis Present Tear Drop Cells 1+ Echinocytes 1+ Peripher Smr Path Cons Haptoglobin PT (9.0-12.0) Seconds INR (0.9-1.1) APTT (21.0-31.0) Seconds PTT Ratio Sodium (136-145) mmol/L Potassium (3.5-5.1) mmol/L Chloride (98-107) mmol/L Carbon Dioxide (21-32) mmol/L Anion Gap (3-11) BUN (6-23) mg/dl Creatinine (0.6-1.4) mg/dl Est Cr Clr Drug Dosing Est GFR ( Amer) ml/min Est GFR (Non-Af Amer) ml/min BUN/Creatinine Ratio (10-20) Glucose (70-99(Fasting)) mg/dl POC Glucose (70-99) mg/dl Lactate (0.4-2.0) mmol/L Calcium (8.5-10.1) mg/dl Magnesium (1.7-2.4) mg/dl Ferritin (8-388) ng/ml Total Bilirubin (0.2-1.0) mg/dl AST (13-39) U/L ALT (7-52) U/L Alkaline Phosphatase (34-104) U/L Lactate Dehydrogenase (86-244) U/L Troponin I High Sens (0-20) pg/ml Total Protein (6.0-8.3) gm/dl Albumin (3.4-5.0) gm/dl Globulin (2.5-4.0) gm/dl Albumin/Globulin Ratio (0.9-2) Procalcitonin (0-0.5) ng/ml TSH (0.300-4.500) uIu/ml Urine Color Urine Appearance (Clear) Urine pH (4.5-7.5) Ur Specific Crawford (1.000-1.030) Urine Protein (Negative) Urine Glucose (UA) (Negative) Urine Ketones (Negative) Urine Blood (Negative) Urine Nitrite (Negative) Urine Bilirubin (Negative) Urine Urobilinogen (Negative) Ur Leukocyte Esterase (Negative) SARS-CoV-2, RNA, NAAT (NEGATIVE) Blood Type Antibody Screen Direct Antiglob Test (Negative) MIRI (IgG-AHG) (Negative) MIRI, Polyspecific (Negative) MIRI C3b, C3d 5 Min (Negative) Crossmatch
--- NOTE | 2022-09-09 08:56 | Anesthesiology Consultation ---
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 History Surgery Operation Date: 09/09/22 17:00 Proposed Procedures p Esophagogastroduodenoscopy Dr Sean Estrada, Height/Weight Height: 5 ft 8 in Weight: 80.5 kg Allergies Allergy/AdvReac Type Severity Reaction Status Date / Time NSAIDS (Non-Steroidal Allergy Rash Unverified 09/08/22 18:16 Anti-Inflamma YONATAN Inhibitors AdvReac Intermediate Cough Verified 09/08/22 13:42 carbidopa AdvReac constipatio Unverified 09/08/22 18:21 n levodopa AdvReac constipatio Unverified 09/08/22 18:21 n Medications Home Medications Medication Instructions Recorded Confirmed Last Taken atorvastatin 40 mg tablet 40 mg PO QAM 09/02/18 09/08/22 09/02/22 amantadine HCl 100 mg capsule 100 mg PO QAM 05/22/20 09/08/22 09/02/22 aspirin 81 mg tablet,delayed 81 mg PO QAM 02/02/21 09/08/22 09/02/22 release (Negar Low Dose Aspirin) pantoprazole 40 mg tablet,delayed 40 mg PO QAM 02/02/21 09/08/22 09/02/22 release donepezil 10 mg tablet 10 mg PO HS 05/11/21 09/08/22 09/01/22 triamterene 37.5 1 tab PO 5XWK 05/11/21 09/08/22 09/01/22 mg-hydrochlorothiazide 25 mg tablet bupropion HCl 150 mg 24 hr tablet, 150 mg PO DAILY 06/17/21 09/08/22 09/02/22 extended release fluocinonide 0.05 % topical 1 applic topical DAILY PRN after 06/17/21 09/08/22 Unknown solution bathing metformin 500 mg tablet,extended 500 mg PO QAM 06/17/21 09/08/22 09/02/22 release 24 hr dupilumab 300 mg/2 mL subcutaneous 300 mg subcut .every 2 weeks 03/03/22 09/08/22 08/29/22 pen injector (Dupixent) escitalopram oxalate 20 mg tablet 20 mg PO QAM #90 tabs 03/29/22 09/08/2222 metoprolol succinate 25 mg 25 mg PO QAM #90 tabs 04/19/22 09/08/22 09/02/22 tablet,extended release 24 hr apixaban 5 mg tablet (Eliquis) 5 mg PO BID 09/02/22 09/08/22 09/02/22 08:00 furosemide 40 mg tablet 40 mg PO Q OTHER DAY #30 tabs 09/04/22 09/08/22 09/02/22 albuterol sulfate 90 mcg/actuation 2 puff inhalation QID PRN 09/08/22 09/08/22 Unknown aerosol inhaler Shortness Of Breath Or Wheezing betamethasone dipropionate 0.05 % 1 applic topical BID PRN Skin 09/08/22 Unknown topical cream Irritation ferrous sulfate 325 mg (65 mg 325 mg PO BID 09/08/22 09/08/22 Unknown iron) tablet (FeroSul) finasteride 5 mg tablet 5 mg PO QAM 09/08/22 09/08/22 Unknown potassium chloride 20 mEq 20 meq PO Q2D 09/08/22 09/08/22 Unknown tablet,extended release tamsulosin 0.4 mg capsule 0.4 mg PO QAM 09/08/22 09/08/22 Unknown Active Medications Generic Name Dose Route Start Last Admin Trade Name Seeq PRN Reason Stop Dose Admin Amantadine HCl 100 mg 09/09/22 09:00 09/09/22 08:00 Amantadine Hcl 100 Mg Capsule PO 10/09/22 08:59 100 mg QAM JEANETH Administration Atorvastatin Calcium 40 mg 09/09/22 09:00 09/09/22 08:00 Atorvastatin 40 Mg Tab PO 10/09/22 08:59 40 mg QAM JEANETH Administration Bupropion HCl 150 mg 09/09/22 09:00 09/09/22 08:00 Bupropion Xl 150 Mg Tabcr PO 10/09/22 08:59 150 mg DAILY JEANETH Administration Donepezil HCl 10 mg 09/08/22 21:00 09/08/22 21:46 Donepezil Hcl 10 Mg Tab PO 10/08/22 20:59 10 mg HS JEANETH Administration Escitalopram Oxalate 20 mg 09/09/22 09:00 09/09/22 08:00 Escitalopram Oxalate 20 Mg Tab PO 10/09/22 08:59 20 mg QAM JEANETH Administration Finasteride 5 mg 09/09/22 09:00 09/09/22 08:00 Finasteride 5 Mg Tab PO 10/09/22 08:59 5 mg QAM JEANETH Administration Pantoprazole Sodium 40 mg/ 100 mls @ 20 mls/hr 09/08/22 17:15 09/09/22 08:03 Dextrose IV 10/08/22 17:14 8 mg/hr Q5H JEANETH 20 mls/hr Administration 8 MG/HR Lactated Ringer's 1,000 mls @ 80 mls/hr 09/09/22 00:15 09/09/22 01:51 Lr IV 10/09/22 00:14 0 mls/hr .[id number] JEANETH Infusion Insulin Aspart 0 units 09/09/22 06:00 09/09/22 06:10 Insulin Aspart Per Unit SC 10/09/22 05:59 1 units Q6 JEANETH Administration Metoprolol Succinate 25 mg 09/09/22 09:00 09/09/22 08:00 Metoprolol Succ 25mg Ext Rel Tab PO 10/09/22 08:59 25 mg QAM JEANETH Administration Potassium Chloride 20 meq 09/08/22 18:45 09/08/22 19:36 Potassium Chloride Crtab 20 Meq Tabcr PO 10/08/22 18:44 20 meq Q2D JEANETH Administration Tamsulosin HCl 0.4 mg 09/09/22 09:00 09/09/22 08:00 Tamsulosin Hcl 0.4 Mg Cap PO 10/09/22 08:59 0.4 mg QAM JEANETH Administration Past Medical History Medical History Adverse reaction to anesthetic agent Anxiety Arthritis BPH (benign prostatic hyperplasia) Carpal tunnel syndrome Cataracts, bilateral CHI (closed head injury) CKD (chronic kidney disease) stage 3, GFR 30-59 ml/min 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 Diabetes type 2, controlled Diabetic ulcer of right heel associated with diabetes mellitus due to underlying condition, with fat layer exposed Dyslipidemia Fall GERD (gastroesophageal reflux disease) HTN (hypertension) HTN (hypertension) Lumbar spondylosis Moderate mitral regurgitation Orthostatic hypotension (07/2019) Peripheral arterial disease Primary parkinsonism Seasonal allergies Sensorineural hearing loss (SNHL) of both ears Sensorineural hearing loss (SNHL) of both ears Sepsis due to group B Streptococcus (2018) 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 Father Hypertension, Onset Age: 40 at 40 Mother Hypertension COPD (chronic obstructive pulmonary disease) Diabetes Brother Allergies Asthma Denies family history of Prostate cancer Hearing loss No family history of adverse response to anesthesia No family history of bleeding disorder Heart disease Cancer Stroke Past Surgical History Surgical History H/O eye surgery H/O foot surgery History of neck surgery History of right hip replacement S/P triple vessel bypass (2011) S/P wrist surgery Social History Smoking Status: Never smoker Hx Alcohol Use: No Alcohol type: beer alcohol intake frequency: holidays/special occasions only Hx Substance Use: No substance use type: marijuana Substance Use Type Other:: had medical marijuana card Last Used Substance Other:: did not ask when last used Physical Exam Vital Signs Last Vital Signs Temp 97.7 F 09/09/22 08:10 Pulse 67 09/09/22 08:10 Resp 14 09/09/22 08:10 BP 146/76 H 09/09/22 08:10 Pulse Ox 98 09/09/22 08:10 O2 Del Method 09/09/22 08:00 O2 Flow Rate 2 09/09/22 08:00 Testing Laboratory Results 09/09/22 01:24 09/08/22 15:55 PT 13.6 Seconds (9.0-12.0) H 09/08/22 15:55 INR 1.3 (0.9-1.1) H 09/08/22 15:55 APTT 23.6 Seconds (21.0-31.0) 09/08/22 15:55 Urine Color Yellow 09/08/22 19:38 Urine Appearance Clear (Clear) 09/08/22 19:38 Urine pH 5.0 (4.5-7.5) 09/08/22 19:38 Ur Specific [place] 1.017 (1.000-1.030) 09/08/22 19:38 Urine Protein Negative (Negative) 09/08/22 19:38 Urine Glucose (UA) Negative (Negative) 09/08/22 19:38 Urine Ketones Trace (Negative) H 09/08/22 19:38 Urine Nitrite Negative (Negative) 09/08/22 19:38 Ur Leukocyte Esterase Negative (Negative) 09/08/22 19:38 Blood Type A Positive 09/08/22 16:04 Antibody Screen NEGATIVE 09/08/22 16:04 09/09/22 09/08/22 05:00 21:07 POC Glucose 175 H 208 H Electrocardiogram Date: 09/08/22 Poor data quality, interpretation may be adversely affected Sinus rhythm with frequent Premature atrial complexes, rate 73 bpm Incomplete right bundle branch block Minor ST depression in Anterior leads Abnormal ECG When compared with ECG of 02-SEP-2022 18:41, Minor ST depression in Anterior leads now present HR has decreased by 18 bpm Confirmed by Michael Stanton ([id number]) on 09/08/2022 6:05:16 PM Chest X-Ray Date: 09/08/22 FINDINGS: No pneumothorax. No pleural effusions. There are low lung volumes with a few bibasilar linear densities likely representing subsegmental atelectasis. Otherwise, lungs are clear. The heart remains mildly enlarged. There are poststernotomy changes again noted. Old, healed left-sided rib fractures. IMPRESSION: No significant change compared to the prior study. No acute process. Echocardiogram Date: 05/01/22 EF 60-65% Mild concentric LVH AV sclerosis mild, without significant AV stenosis Mild AR Mitral valve leaflets appear thickened and redundant. There is moderate posterior mitral valve leaflet prolapse, mild to mod anterior mitral valve leaflet prolapse. Mild MR
[2022-09-09] MEDS ORDERED: METOPROLOL SUCC 25MG EXT REL TAB PO SCH (09:00)
[2022-09-09] MEDS ORDERED: AMANTADINE HCL 100 MG CAPSULE PO SCH (09:00)
[2022-09-09 10:35] LABS: BUN Creatinine Ratio 36.2 (10-20); Calcium 7.9 mg/dl (8.5-10.1); Creatinine Clr Calc Pharmacy 19.2 ml/min; Est GFR (African American) 21.4 ml/min; Est GFR (Non-African American) 18.5 ml/min; Potassium 3.4 mmol/L (3.5-5.1)
[2022-09-09 10:40] LABS: Basophils # (auto) 0.03 K/uL (0-0.2); Basophils % (auto) 0.3 %; Eosinophils # (auto) 0.02 K/uL (0-0.50); Eosinophils % (auto) 0.2 %; Hematocrit (blood only) 30.2 % (40.1-51.0); Hemoglobin 10.4 g/dl (14.0-18.0); Immature Granulocytes # (auto) 0.28 K/uL (0.00-0.02); Immature Granulocytes % (auto) 3.1 %; Lymphocytes # (auto) 0.48 K/uL (1.2-3.4); Lymphocytes % (auto) 5.2 %; Mean Corpuscular Hgb Conc 34.4 g/dL (32.0-36.0); Mean Corpuscular Volume 89.9 fL (80.0-100.0); Mean Platelet Volume 9.2 fL (9.4-12.4); Monocytes # (auto) 0.75 K/uL (0.24-0.82); Monocytes % (auto) 8.2 %; Nucleated RBC # (auto) 0.07 K/uL (0-0); Nucleated RBC % (auto) 0.8 %; Platelet Count 214 K/uL (130-400); RDW Coefficient of Variation 14.2 % (11.5-14.5); RDW Standard Deviation 44.5 fL (36.4-46.3); Red Blood Count 3.36 M/uL (4.63-6.08); White Blood Count 9.16 K/ul (4.8-10.8)
--- NOTE | 2022-09-09 13:57 | History & Physical Bridge Note ---
Date of Service September 09, 2022 History & Physical Bridge Note I have examined the patient, reviewed the History & Physical and in the interval since the performance of the History & Physical I have noted the following changes of clinical significance: no changes noted
[2022-09-09] MEDS ORDERED: LIDOCAINE 2% MPF LOCAL 5 ML VIAL INFIL ONE (14:06)
[2022-09-09] MEDS ORDERED: PROPOFOL IV EMULSION 10 MG/ML 20 ML VIAL IV ONE (14:06)
--- NOTE | 2022-09-09 14:56 | GI REPORT ---
Patient Name: Jesus Jose Procedure Date: 09/09/2022 2:04 PM Date of : 1945 Admit Type: Inpatient Age: 77 Gender: Male Attending MD: Chong Estrada DO, Procedure: Upper GI endoscopy Providers: Chong Estrada DO Referring MD: Michael Stanton Indications: Melena Medicines: Monitored Anesthesia Care Complications: No immediate complications. Estimated blood loss: Minimal. Estimated Blood Loss: Estimated blood loss was minimal. Procedure: Pre-Anesthesia Assessment: - Prior to the procedure, a History and Physical was performed, and patient medications, allergies and sensitivities were reviewed. The patient's tolerance of previous anesthesia was reviewed. - The risks and benefits of the procedure and the sedation options and risks were discussed with the patient. All questions were answered and informed consent was obtained. - Patient identification and proposed procedure were verified prior to the procedure by the physician, the nurse and the car sales representative. The procedure was verified in the procedure room. - Pre-procedure physical examination revealed no contraindications to sedation. - ASA Grade Assessment: IV - A patient with severe systemic disease that is a constant threat to life. - After reviewing the risks and benefits, the patient was deemed in satisfactory condition to undergo the procedure. - The anesthesia plan was to use monitored anesthesia care (MAC). - Immediately prior to administration of medications, the patient was re-assessed for adequacy to receive sedatives. - The heart rate, respiratory rate, oxygen saturations, blood pressure, adequacy of pulmonary ventilation, and response to care were monitored throughout the procedure. - The physical status of the patient was re-assessed after the procedure. After obtaining informed consent, the endoscope was passed under direct vision. Throughout the procedure, the patient's blood pressure, pulse, and oxygen saturations were monitored continuously. The Endoscope was introduced through the mouth, and advanced to the fourth part of duodenum. The upper GI endoscopy was accomplished without difficulty. The patient tolerated the procedure well. Findings: The examined esophagus was normal. The entire examined stomach was normal. The examined duodenum was normal. Impression: - Normal esophagus. - Normal stomach. - Normal examined duodenum. - No specimens collected. Recommendation: - Return patient to [facility] for ongoing care. - Perform a colonoscopy at the next available appointment. Chong Estrada D.O. Chong Estrada DO 09/09/2022 2:56:15 PM This report has been signed electronically. Note Initiated On: 09/09/2022 2:04 PM Number of Addenda: 0 I attest to the content of the Intraoperative Record and orders documented therein, exceptions below {[id number]}
--- NOTE | 2022-09-09 15:04 | Hospitalist Progress Note ---
Date of Service September 09, 2022 Assessment & Plan (1) Hypovolemic shock: (2) Acute blood loss anemia: (3) Heme positive stool: Plan: Unclear source of blood loss but Hgb went from 8.6 on 09/03 to 4.3 today - stools are chronically dark but were noted to be heme positive in ED. EGD/Colonoscopy/VCE in were negative for source of GI blood loss. Recently started on Eliquis for atrial fibrillation diagnosed on outpatient EKG. Family has noted increasing falls over the last several days as well, including recent admission for mechanical fall. On presentation to the ED, patient was hypotensive Hemoglobin had down trended from 8.6 on 09/03 to 4.3 on admission. He received 4 units of blood so far; last hemoglobin 10.4. Endoscopy negative for any source of upper GI bleed. Lactate was 7 on admission; down trended. Plan; Continue to monitor H&H every 6 hours. Transfuse if hypotensive or hemoglobin is less than 8. Continue on PPI drip for now - Advance diet as tolerated; to be started on clear liquid diet on Monday with GoLytely 1500 mL to prepare for colonoscopy on Monday. - Hold ELiquis. Currently in sinus rhythm (4) Acute kidney injury superimposed on CKD: Plan: Secondary to hypovolemic shock. Baseline Cr is 1.5- 1.6. Cr today is 3.07. CT abdomen doesn't show hydronephrosis. Plan: - Cotinue iv fluids with NS at current dose. - HOld antihypertensives. - Monitor urine output. (5) Status post fall: (6) Lumbar transverse process fracture: Plan: Repeated falls at home CT abdomen shows acute right transverse process fracture of L1 and L2. Ortho consulted. Eventual PT/OT once more stable (7) Chronic heart failure with preserved ejection fraction (HFpEF): Plan: Compensated. Hold diuretics and b-blockers for now. (8) Diabetes type 2, controlled: Plan: Holding Metformin while admitted - Insulin sliding scale coverage - Accuchecks (9) Generalized weakness: (10) Coronary artery disease: (11) COPD (chronic obstructive pulmonary disease): (12) Dementia associated with Parkinson's disease: (13) Primary parkinsonism: (14) GERD (gastroesophageal reflux disease): (15) HTN (hypertension): Plan Continue other home medications as appropriate. Code Status: Full code DVT Prophylaxis: SCDs due to concern for acute blood loss Admission and Anticipated Discharge Date Admission Date: September 08, 2022 Subjective Patient seen and examined at bedside. He reports multiple episode of black tarry stool overnight. He denies any abdominal pain or discomfort. Review of Systems Review of Systems: All systems reviewed & are unremarkable except as noted in Subjective Physical Exam Physical Exam: Constitutional: Alert oriented to time, place. Hard of hearing. Respiratory: normal respiratory effort, lungs clear to auscultation, no wheeze, rales, rhonchi. Normal insp/exp effort, no accessory muscle use Cardiovascular: RRR, no murmur, no edema Vessels: no JVD or carotid bruit Chest: normal inspection of chest Abdomen: normal bowel sounds, soft, nontender, no hepatosplenomegaly Musculoskeletal: no cyanosis or clubbing, extremities motor strength 5/5 Skin: no rashes, warm and dry normal turgor Neurologic: PERRL, EOMI, accommodation nl, no face palsy, no dysarthria CN's II- XI intact bilaterally and moves all extremities Psychiatric: A+Ox3, euthymic affect Lymphatic: no cervical or axillary lymphadenopathy : deferred Results & Data Results & Data ([facility]) Vital Signs (Past 12 Hours) Vital Signs Temp Pulse Pulse Pulse Resp BP BP 09/09/22 14:55 57 L 16 94/51 L 09/09/22 13:33 36.5 C 68 18 162/70 H 09/09/22 11:30 36.6 C 76 18 119/73 09/09/22 11:28 67 09/09/22 08:00 36.4 C L 64 20 116/72 09/09/22 08:10 36.5 C 67 14 146/76 H 09/09/22 07:15 36.5 C 64 18 117/72 09/09/22 06:15 36.7 C 63 18 119/59 L 09/09/22 05:45 36.6 C 66 18 114/68 09/09/22 05:30 36.5 C 71 18 115/73 09/09/22 05:15 36.6 C 66 18 142/83 H 09/09/22 05:02 36.7 C 64 18 125/70 09/09/22 03:55 36.4 C L 67 18 129/65 Pulse Ox O2 Del Method O2 Flow Rate 11/18/22 14:55 99 Room Air 09/09/22 13:33 93 Room Air 09/09/22 11:30 95 Nasal Cannula 2 09/09/22 11:28 09/09/22 08:00 97 Nasal Cannula 2 09/09/22 08:10 98 09/09/22 07:15 98 09/09/22 06:15 98 2 09/09/22 05:45 97 2 09/09/22 05:30 98 2 09/09/22 05:15 98 09/09/22 05:02 98 2 09/09/22 03:55 100 2 Laboratory Results Laboratory Results WBC 9.16 K/ul (4.8-10.8) 09/09/22 09:53 RBC 3.36 M/uL (4.63-6.08) L 09/09/22 09:53 Hgb 10.4 g/dl (14.0-18.0) L D 09/09/22 09:53 Hct 30.2 % (40.1-51.0) L 09/09/22 09:53 MCV 89.9 fL (80.0-100.0) D 09/09/22 09:53 MCH 31.0 pg (25.0-34.0) 09/09/22 09:53 MCHC 34.4 g/dL (32.0-36.0) 09/09/22 09:53 RDW Std Deviation 44.5 fL (36.4-46.3) 09/09/22 09:53 RDW Coeff of Anny 14.2 % (11.5-14.5) 09/09/22 09:53 Plt Count 214 K/uL (130-400) 09/09/22 09:53 MPV 9.2 fL (9.4-12.4) L 09/09/22 09:53 Immature Gran % (Auto) 3.1 % 09/09/22 09:53 Neut % (Auto) 83.0 % 09/09/22 09:53 Lymph % (Auto) 5.2 % 09/09/22 09:53 [place] % (Auto) 8.2 % 09/09/22 09:53 Eos % (Auto) 0.2 % 09/09/22 09:53 Baso % (Auto) 0.3 % 09/09/22 09:53 Reticulocyte % (Auto) 9.7 % (0.5-2.0) H 09/08/22 15:55 Neut # (Auto) 7.60 K/uL (1.4-6.5) H 09/09/22 09:53 Lymph # (Auto) 0.48 K/uL (1.2-3.4) L 09/09/22 09:53 [place] # (Auto) 0.75 K/uL (0.24-0.82) 09/09/22 09:53 Eos # (Auto) 0.02 K/uL (0-0.50) 09/09/22 09:53 Baso # (Auto) 0.03 K/uL (0-0.2) 09/09/22 09:53 Reticulocyte # 0.14 10^6/uL (0.02-0.10) H 09/08/22 15:55 Immature Gran # (Auto) 0.28 K/uL (0.00-0.02) H 09/09/22 09:53 Absolute Nucleated RBC 0.07 K/uL (0-0) H 09/09/22 09:53 Nucleated RBC % (auto) 0.8 % 09/09/22 09:53 Anisocytosis Present 09/08/22 15:55 Tear Drop Cells 1+ 09/08/22 15:55 Echinocytes 1+ 09/08/22 15:55 Peripher Smr Path Cons 09/08/22 15:55 PT 13.6 Seconds (9.0-12.0) H 09/08/22 15:55 INR 1.3 (0.9-1.1) H 09/08/22 15:55 APTT 23.6 Seconds (21.0-31.0) 09/08/22 15:55 PTT Ratio 0.9 09/08/22 15:55 Sodium 133 mmol/L (136-145) L 09/09/22 09:53 Potassium 3.4 mmol/L (3.5-5.1) L 09/09/22 09:53 Chloride 97 mmol/L (98-107) L 09/09/22 09:53 Carbon Dioxide 25 mmol/L (21-32) 09/09/22 09:53 Anion Gap 11 (3-11) 09/09/22 09:53 BUN 111 mg/dl (6-23) H 09/09/22 09:53 Creatinine 3.07 mg/dl (0.6-1.4) H 09/09/22 09:53 Est Cr Clr Drug Dosing 19.2 ml/min 09/09/22 09:53 Est GFR ( Amer) 21.4 ml/min 09/09/22 09:53 Est GFR (Non-Af Amer) 18.5 ml/min 09/09/22 09:53 BUN/Creatinine Ratio 36.2 (10-20) H 09/09/22 09:53 Glucose 154 mg/dl (70-99(Fasting)) H 09/09/22 09:53 POC Glucose 178 mg/dl (70-99) H 09/09/22 11:46 Lactate 1.6 mmol/L (0.4-2.0) 09/09/22 09:53 Calcium 7.9 mg/dl (8.5-10.1) L 09/09/22 09:53 Magnesium 2.4 mg/dl (1.7-2.4) 09/08/22 15:55 Ferritin 44.1 ng/ml (8-388) 09/08/22 15:55 Total Bilirubin 0.5 mg/dl (0.2-1.0) 09/08/22 15:55 AST 29 U/L (13-39) 09/08/22 15:55 ALT 34 U/L (7-52) 09/08/22 15:55 Alkaline Phosphatase 65 U/L (34-104) 09/08/22 15:55 Lactate Dehydrogenase 280 U/L (86-244) H 09/08/22 15:55 Troponin I High Sens 6.2 pg/ml (0-20) 09/08/22 15:55 Total Protein 5.3 gm/dl (6.0-8.3) L 09/08/22 15:55 Albumin 3.2 gm/dl (3.4-5.0) L 09/08/22 15:55 Globulin 2.1 gm/dl (2.5-4.0) L 09/08/22 15:55 Albumin/Globulin Ratio 1.5 (0.9-2) 09/08/22 15:55 Procalcitonin 0.33 ng/ml (0-0.5) 09/08/22 15:55 TSH 3.212 uIu/ml (0.300-4.500) 09/08/22 15:55 Urine Color Yellow 09/08/22 19:38 Urine Appearance Clear (Clear) 09/08/22 19:38 Urine pH 5.0 (4.5-7.5) 09/08/22 19:38 Ur Specific [place] 1.017 (1.000-1.030) 09/08/22 19:38 Urine Protein Negative (Negative) 09/08/22 19:38 Urine Glucose (UA) Negative (Negative) 09/08/22 19:38 Urine Ketones Trace (Negative) H 09/08/22 19:38 Urine Blood Negative (Negative) 09/08/22 19:38 Urine Nitrite Negative (Negative) 09/08/22 19:38 Urine Bilirubin Negative (Negative) 09/08/22 19:38 Urine Urobilinogen Negative (Negative) 09/08/22 19:38 Ur Leukocyte Esterase Negative (Negative) 09/08/22 19:38 SARS-CoV-2, RNA, NAAT NEGATIVE (NEGATIVE) 09/08/22 17:35 Blood Type A Positive 09/08/22 16:04 Antibody Screen NEGATIVE 09/08/22 16:04 Direct Antiglob Test Negative (Negative) 09/08/22 16:04 MIRI (IgG-AHG) Neg (Negative) 09/08/22 16:04 MIRI, Polyspecific Neg (Negative) 09/08/22 16:04 MIRI C3b, C3d 5 Min Neg (Negative) 09/08/22 16:04 Crossmatch See Detail 09/08/22 16:04 Impressions Chest X-Ray 09/08/22 16:51 XR chest 1V portable HISTORY: Shortness of breath. Generalized weakness. COMPARISON: Chest 09/02/2022. FINDINGS: No pneumothorax. No pleural effusions. There are low lung volumes with a few bibasilar linear densities likely representing subsegmental atelectasis. Otherwise, lungs are clear. The heart remains mildly enlarged. There are poststernotomy changes again noted. Old, healed left-sided rib fractures. IMPRESSION: No significant change compared to the prior study. No acute process. ACT 112: Negative or not required by law. Electronically signed by: José Miguel Rock M.D. 09/08/2022 5:40 PM Abdomen/Pelvis CT 09/08/22 18:09 CT OF THE ABDOMEN AND PELVIS WITHOUT CONTRAST CLINICAL HISTORY: Evaluate for retroperitoneal bleed - falls, worse anemia. COMPARISON STUDY: CT of the abdomen and pelvis July 16, 2020 and [facility]UB May 02, 2022. TECHNIQUE: Axial images of the abdomen and pelvis were obtained without IV contrast. Images were reviewed in the axial, sagittal, and coronal planes. Automated exposure control was utilized for the study. A dose lowering technique was utilized adhering to the principles of ALARA. FINDINGS: A few nodular airspace opacities within the left lower lobe are likely infectious. There are a few smaller nodular opacities within the right lower lobe as well as subpleural opacity within the right lower lobe which favors atelectasis. No pneumatosis, free air or portal venous gas is present. Evaluation of the abdomen and pelvis is suboptimal on this unenhanced exam. There are few small gallstones within the gallbladder. There is no evidence for acute cholecystitis. Unenhanced images of liver, spleen, adrenal glands, kidneys and pancreas are unremarkable. There is no hydronephrosis. There is no evidence for a bowel obstruction. The prostate is markedly enlarged. There is no hydronephrosis. No lymphadenopathy is present. No retroperitoneal hematoma is noted. There is a small acute subcutaneous hematoma of the lower back that measures 2.6 x 2 cm. There are acute appearing fractures of the right transverse processes of L1 and L2. No acute pelvic or hip fracture is present. Right hip arthroplasty is intact. IMPRESSION: 1. No retroperitoneal hematoma identified. 2. Small acute subcutaneous hematoma of the lower back that measures 2.6 x 2 cm. 3. Acute appearing fractures of the right transverse processes of L1 and L2. 4. No evidence for traumatic injury to the solid abdominal viscera on unenhanced exam. 5. No bowel obstruction. 6. Markedly enlarged prostate. ACT 112: Negative or not required by law. Electronically signed by: Calixto Bai M.D. 09/08/2022 8:39 PM (1) COPD (chronic obstructive pulmonary disease) COPD type: COPD with acute exacerbation Qualified Code(s): J44.1 - Chronic obstructive pulmonary disease with (acute) exacerbation
--- NOTE | 2022-09-09 15:20 | Anesthesiology Progress Note ---
Date of Service September 09, 2022 Anesthesia Post Procedure Vital Signs Vital Signs: Temp Pulse Pulse Pulse Resp BP BP 09/09/22 15:10 59 L 16 114/58 L 09/09/22 14:55 57 L 16 94/51 L 09/09/22 13:33 36.5 C 68 18 162/70 H 09/09/22 11:30 36.6 C 76 18 119/73 09/09/22 11:28 67 09/09/22 08:00 36.4 C L 64 20 116/72 09/09/22 08:10 36.5 C 67 14 146/76 H 09/09/22 07:15 36.5 C 64 18 117/72 09/09/22 06:15 36.7 C 63 18 119/59 L 09/09/22 05:45 36.6 C 66 18 114/68 09/09/22 05:30 36.5 C 71 18 115/73 09/09/22 05:15 36.6 C 66 18 142/83 H 09/09/22 05:02 36.7 C 64 18 125/70 09/09/22 03:55 36.4 C L 67 18 129/65 09/09/22 02:55 36.7 C 65 18 129/82 09/09/22 02:25 36.7 C 66 18 115/64 09/09/22 02:10 36.6 C 71 18 117/67 09/09/22 01:54 36.5 C 65 18 115/68 09/09/22 01:37 36.5 C 69 18 117/62 09/09/22 01:17 65 09/08/22 20:45 66 09/08/22 23:48 36.6 C 65 18 115/73 09/08/22 22:41 36.5 C 61 18 129/76 09/08/22 20:11 09/08/22 21:41 36.5 C 70 18 104/61 09/08/22 22:18 36.7 C 64 18 114/62 09/08/22 21:11 36.3 C L 69 18 113/72 09/08/22 20:56 36.4 C L 68 18 108/67 09/08/22 20:30 36.3 C L 69 18 113/70 09/08/22 20:40 36.4 C L 71 18 117/64 09/08/22 19:27 36.9 C 68 21 123/57 L 09/08/22 19:18 66 20 123/57 L 09/08/22 19:18 09/08/22 18:54 70 96/61 L 09/08/22 17:55 69 22 123/47 L 09/08/22 17:40 36.5 C 68 20 107/55 L 09/08/22 17:39 36.5 C 70 20 107/55 L 09/08/22 17:23 36.5 C 70 28 H 109/55 L 09/08/22 16:33 74 20 107/64 09/08/22 16:33 09/08/22 15:31 36.7 C 92 H 20 84/47 L Pulse Ox Pulse Ox O2 Del Method O2 Del Method O2 Flow Rate O2 Flow Rate 09/09/22 15:10 100 Room Air 09/09/22 14:55 99 Room Air 09/09/22 13:33 93 Room Air 09/09/22 11:30 95 Nasal Cannula 2 09/09/22 11:28 09/09/22 08:00 97 Nasal Cannula 2 09/09/22 08:10 98 09/09/22 07:15 98 09/09/22 06:15 98 2 09/09/22 05:45 97 2 09/09/22 05:30 98 2 09/09/22 05:15 98 09/09/22 05:02 98 2 09/09/22 03:55 100 2 09/09/22 02:55 97 09/09/22 02:25 98 09/09/22 02:10 98 09/09/22 01:54 97 09/09/22 01:37 100 Nasal Cannula 2 09/09/22 01:17 09/08/22 20:45 09/08/22 23:48 96 09/08/22 22:41 98 09/08/22 20:11 96 Nasal Cannula 2 09/08/22 21:41 98 09/08/22 22:18 100 Nasal Cannula 2 09/08/22 21:11 99 2 09/08/22 20:56 98 2 09/08/22 20:30 100 Nasal Cannula 2 09/08/22 20:40 97 2 09/08/22 19:27 99 2 09/08/22 19:18 92 Nasal Cannula 09/08/22 19:18 Nasal Cannula 2 09/08/22 18:54 96 Nasal Cannula 2 09/08/22 17:55 99 2 09/08/22 17:40 100 2 09/08/22 17:39 100 2 09/08/22 17:23 100 09/08/22 16:33 100 Nasal Cannula 2 09/08/22 16:33 Nasal Cannula 2 09/08/22 15:31 98 Nasal Cannula Transfer of Care Handoff Completed per policy Notes Mental Status: alert / awake / arousable Patient Amnestic to Procedure: Yes Nausea / Vomiting: adequately controlled Pain: adequately controlled Airway Patency, RR, SpO2: stable & adequate BP & HR: stable & adequate Hydration State: stable & adequate Anesthetic Complications: no major complications apparent
--- NOTE | 2022-09-09 15:44 | Communication Note ---
Date of Service: September 09, 2022 Patient underwent upper endoscopy this afternoon. The examination was notable of melena. Given the decrease in his hemoglobin and hct, the patient may benefit from a repeat diagnostic early next, please call with any additional questions or concerns over the weekend Ful liquid diet this bowel prepartion for colonoscopy on Monday evening colonoscopy with Dr. Palumbo on Monday
[2022-09-09 16:39] LABS: Hematocrit (blood only) 30.5 % (40.1-51.0); Hemoglobin 10.8 g/dl (14.0-18.0)
[2022-09-09 16:56] LABS: BUN Creatinine Ratio 36.7 (10-20); Creatinine Clr Calc Pharmacy 19.8 ml/min; Est GFR (African American) 22.3 ml/min; Est GFR (Non-African American) 19.2 ml/min; Potassium 3.4 mmol/L (3.5-5.1)
[2022-09-09] MEDS: DONEPEZIL HCL 10 MG TAB PO SCH (20:54)
[2022-09-09 21:07] LABS: Hematocrit (blood only) 29.4 % (40.1-51.0); Hemoglobin 10.3 g/dl (14.0-18.0)
[2022-09-10] MEDS: LACTATED RINGER'S 1,000 ML IV SCH ×2 (01:39→15:48)
[2022-09-10 03:34] LABS: Basophils # (auto) 0.01 K/uL (0-0.2); Basophils % (auto) 0.2 %; Eosinophils # (auto) 0.03 K/uL (0-0.50); Eosinophils % (auto) 0.6 %; Hematocrit (blood only) 28.8 % (40.1-51.0); Hemoglobin 9.9 g/dl (14.0-18.0); Immature Granulocytes # (auto) 0.16 K/uL (0.00-0.02); Lymphocytes # (auto) 0.59 K/uL (1.2-3.4); Lymphocytes % (auto) 11.1 %; Mean Corpuscular Hgb Conc 34.4 g/dL (32.0-36.0); Mean Corpuscular Volume 90.3 fL (80.0-100.0); Mean Platelet Volume 9.2 fL (9.4-12.4); Monocytes # (auto) 0.68 K/uL (0.24-0.82); Monocytes % (auto) 12.8 %; Neutrophils # (auto) 3.85 K/uL (1.4-6.5); Neutrophils % (auto) 72.3 %; Nucleated RBC # (auto) 0.04 K/uL (0-0); Nucleated RBC % (auto) 0.8 %; Platelet Count 182 K/uL (130-400); RDW Standard Deviation 46.5 fL (36.4-46.3); Red Blood Count 3.19 M/uL (4.63-6.08); White Blood Count 5.32 K/ul (4.8-10.8)
[2022-09-10] MEDS: PANTOprazole 40 MG in DEXTROSE 5% 100 ML IV SCH ×4 (04:02→20:00)
[2022-09-10 04:44] LABS: BUN Creatinine Ratio 38.9 (10-20); Calcium 7.7 mg/dl (8.5-10.1); Creatinine Clr Calc Pharmacy 24.1 ml/min; Est GFR (African American) 28.3 ml/min; Est GFR (Non-African American) 24.4 ml/min; Potassium 3.1 mmol/L (3.5-5.1)
--- NOTE | 2022-09-10 08:44 | Hospitalist Progress Note ---
Date of Service September 09, 2022 Assessment & Plan (1) Acute blood loss anemia: Plan: Robust response to transfusion coupled with a low bilirubin levels and the actual corrected reticulocyte count all suggest against any significant element of hemolysis even as we await haptoglobin levels. Note that pathologist review of the peripheral smear does identify some abnormal forms in the red cell and white cell series. There is both some some suggestion dysplastic maturation and identification of occasional immature forms -nucleated red blood cells and a single blast. We must be very cautious in interpreting these results as there is undoubtedly significant cytokine response to his anemia. Specifically, marked increase levels of erythropoietin will lead to loosening of marrow endothelial fenestrations and early and increased egress of immature forms from marrow including nucleated red blood cells and even an occasional blast. Disruption of normal maturation by that significantly increased tonic cytokine stimulation red cell and white cell maturation producing dysplastic features is also possible. There is no clarita indication of leukemia or another immediately threatening inherent hematologic abnormality. Lymphopenia is a separate issue and probably not directly related to the anemia though notable and persistent over time. We may want to be sure that an HIV titer has been checked historically or if not include that as additional testing. At this point, infections are not a major issue so we can defer more complete work-up of that to a later time. Whether or not there is a background of inherently dysplastic maturation in the marrow, as per initial consultation we cannot make any significant judgments of the relevance of other hematologic processes or conditions until we have restored adequate iron levels and can more relevantly assess his current stable baseline erythropoietic capacity and see a more steady state CBC. Targets for total iron replacement are defined in the initial consultation. It may also be prudent to supplement folic acid empirically as he may quickly deplete those stores in the process of ramping up his erythropoiesis once iron is available Plan Has reached adequate hemoglobin levels, would complete iron replacement as outlined in the initial consultation with intravenous iron infusions Initial GI work-up has not identified a source of blood loss, further procedures are pending Primary priority is to adequately replace iron and reassess his CBC guiding us as to the need and urgency for further hematologic evaluation Empirically replace folic acid suggest 1 mg twice daily which can be given orally Consider HIV screening if that has not been historically assessed Admission and Anticipated Discharge Date Admission Date: September 08, 2022 Subjective Met in the evening with the patient and his . He is feeling much improved since transfusion without active complaints at this time Physical Exam Physical Exam: Exam is stable, hemoglobin has responded significantly to transfusion Results & Data Results & Data ([facility]) Vital Signs (Past 12 Hours) Vital Signs Temp Pulse Pulse Pulse Resp BP Pulse Ox 09/10/22 07:29 65 09/10/22 07:17 36.8 C 58 L 18 112/70 95 09/10/22 04:57 36.4 C L 56 L 22 113/57 L 96 09/09/22 23:01 61 09/09/22 22:42 36.4 C L 58 L 17 115/67 98 O2 Del Method O2 Flow Rate 09/10/22 07:29 09/10/22 07:17 Room Air 09/10/22 04:57 Nasal Cannula 2 09/09/22 23:01 09/09/22 22:42 Nasal Cannula 2 PG Care Time/CCT Total # of Minutes Spent Total Time Spent with Patient: Total time spent is greater than 50% in coordination of care (as documented) at patient's floor/unit and/or counseling patient: Coding Level of Care Code None Diagnoses Acute blood loss anemia D62
[2022-09-10] MEDS: buPROPion XL 150 MG TABCR PO SCH (09:13)
[2022-09-10] MEDS: TAMSULOSIN HCL 0.4 MG CAP PO SCH (09:13)
[2022-09-10] MEDS: ATORVASTATIN 40 MG TAB PO SCH (09:13)
[2022-09-10] MEDS: FINASTERIDE 5 MG TAB PO SCH (09:13)
[2022-09-10] MEDS: ESCITALOPRAM OXALATE 20 MG TAB PO SCH (09:13)
[2022-09-10] MEDS: INSULIN ASPART PER UNIT SC SCH ×4 (09:25→21:24)
[2022-09-10 09:29] LABS: Hematocrit (blood only) 30.3 % (40.1-51.0); Hemoglobin 10.4 g/dl (14.0-18.0)
[2022-09-10] MEDS ORDERED: POTASSIUM CHLORIDE CRTAB 20 MEQ TABCR PO ONE (09:41)
--- NOTE | 2022-09-10 10:15 | Orthopedic Consultation ---
Date of Consultation September 10, 2022 Assessment & Plan (1) Lumbar transverse process fracture: Assessment transverse process fractures. Plan at this time a CAT scan does demonstrate what appears to be acute transverse process fractures at the tips of L1 and 2 on the right. Patient is essentially asymptomatic. I have explained to him I would not limit his activity at this time. He can perform activities as tolerated. There is no need for follow-up on my behalf. History of Present Illness Reason for Consultation: Lumbar transverse process fractures Attending Physician: Tonia Baeza MD History of Present Illness This a very pleasant 69-year-old male that presents to the hospital with multiple medical issues. This morning he is sitting in the chair at the bedside. I inquired regarding any back discomfort. 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 Denies any radicular complaints. Allergies Allergy/AdvReac Type Severity Reaction Status Date / Time NSAIDS (Non-Steroidal Allergy Rash Verified 09/09/22 13:37 Anti-Inflamma YONATAN Inhibitors AdvReac Intermediate Cough Verified 09/09/22 13:37 carbidopa AdvReac constipatio Verified 09/09/22 13:37 n levodopa AdvReac constipatio Verified 09/09/22 13:37 n Home Medications Medication Instructions Recorded Confirmed Type atorvastatin 40 mg tablet 40 mg PO QAM 09/02/18 09/08/22 History amantadine HCl 100 mg capsule 100 mg PO QAM 05/22/20 09/08/22 History aspirin 81 mg tablet,delayed 81 mg PO QAM 02/02/21 09/08/22 History release (Negar Low Dose Aspirin) pantoprazole 40 mg tablet,delayed 40 mg PO QAM 02/02/21 09/08/22 History release donepezil 10 mg tablet 10 mg PO HS 05/11/21 09/08/22 History triamterene 37.5 1 tab PO 5XWK 05/11/21 09/08/22 History mg-hydrochlorothiazide 25 mg tablet bupropion HCl 150 mg 24 hr tablet, 150 mg PO DAILY 06/17/21 09/08/22 History extended release fluocinonide 0.05 % topical 1 applic topical DAILY PRN after 06/17/21 09/08/22 History solution bathing metformin 500 mg tablet,extended 500 mg PO QAM 06/17/21 09/08/22 History release 24 hr dupilumab 300 mg/2 mL subcutaneous 300 mg subcut .every 2 weeks 03/03/22 09/08/22 History pen injector (Dupixent) escitalopram oxalate 20 mg tablet 20 mg PO QAM #90 tabs 03/29/22 09/08/22 Rx metoprolol succinate 25 mg 25 mg PO QAM #90 tabs 04/19/22 09/08/22 Rx tablet,extended release 24 hr apixaban 5 mg tablet (Eliquis) 5 mg PO BID 09/02/22 09/08/22 History furosemide 40 mg tablet 40 mg PO Q OTHER DAY #30 tabs 09/04/22 09/08/22 Rx albuterol sulfate 90 mcg/actuation 2 puff inhalation QID PRN 09/08/22 09/08/22 History aerosol inhaler Shortness Of Breath Or Wheezing betamethasone dipropionate 0.05 % 1 applic topical BID PRN Skin 09/08/22 09/08/22 History topical cream Irritation ferrous sulfate 325 mg (65 mg 325 mg PO BID 09/08/22 09/08/22 History iron) tablet (FeroSul) finasteride 5 mg tablet 5 mg PO QAM 09/08/22 09/08/22 History potassium chloride 20 mEq 20 meq PO Q2D 09/08/22 09/08/22 History tablet,extended release tamsulosin 0.4 mg capsule 0.4 mg PO QAM 09/08/22 09/08/22 History Patient History Medical History Adverse reaction to anesthetic agent Anxiety Arthritis BPH (benign prostatic hyperplasia) Carpal tunnel syndrome Cataracts, bilateral CHI (closed head injury) CKD (chronic kidney disease) stage 3, GFR 30-59 ml/min 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 Diabetes type 2, controlled Diabetic ulcer of right heel associated with diabetes mellitus due to underlying condition, with fat layer exposed Dyslipidemia Fall GERD (gastroesophageal reflux disease) HTN (hypertension) HTN (hypertension) Lumbar spondylosis Moderate mitral regurgitation Orthostatic hypotension (07/2019) Peripheral arterial disease Primary parkinsonism Seasonal allergies Sensorineural hearing loss (SNHL) of both ears Sensorineural hearing loss (SNHL) of both ears Sepsis due to group B Streptococcus (2018) 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 Is comfortable. Is good strength testing lower extremities. Results & Data ([facility]) Vital Signs (Past 12 Hours) Vital Signs Temp Pulse Pulse Pulse Resp BP Pulse Ox 09/10/22 09:47 09/10/22 07:29 65 09/10/22 07:17 36.8 C 58 L 18 112/70 95 09/10/22 04:57 36.4 C L 56 L 22 113/57 L 96 09/09/22 23:01 61 09/09/22 22:42 36.4 C L 58 L 17 115/67 98 O2 Del Method O2 Flow Rate 09/10/22 09:47 Nasal Cannula 2 09/10/22 07:29 09/10/22 07:17 Room Air 09/10/22 04:57 Nasal Cannula 2 09/09/22 23:01 09/09/22 22:42 Nasal Cannula 2
[2022-09-10] MEDS: FOLIC ACID 1 MG TAB PO SCH (11:37)
--- NOTE | 2022-09-10 15:43 | Hospitalist Progress Note ---
Date of Service September 10, 2022 Assessment & Plan (1) Hypovolemic shock: Plan 77-year-old male with PMH of heart failure with preserved ejection fraction, DM2, primary parkinsonism with associated dementia, CKD stage IIIb, HTN, wandering atrial pacemaker, CAD with prior CABG x3, HUNTER on regular iron infusion, GERD, HLD, anxiety and BPH was sent to the ED 09/08 from the cardiology office [for regular CHF follow-up] for hypotension and profound weakness. Of note, patient was recently admitted to this facility 09/03-09/04 after mechanical fall at home. Patient noted to have multiple falls at home including sliding off the bedside commode on the day of arrival. His stools are dark at baseline, noted to be heme positive in the ED but no clarita hematochezia. He was recently started on Eliquis 2 weeks ago [employer] for new onset atrial fibrillation. Patient follows with hematology for chronic iron deficiency anemia. He is being managed for the following: (1) Hypovolemic shock: (2) Acute blood loss anemia: (3) Heme positive stool: Unclear source of blood loss but Hgb went from 8.6 on 09/03 to 4.3 09/08 (day of admission) - stools are chronically dark but were noted to be heme positive in ED. EGD 07/08/20 - normal esophagus, stomach; patchy erythematous mucosa without active bleeding in the duodenal bulb. Colonoscopy 07/08/20 - multiple small-mouthed diverticula in the sigmoid colon; internal hemorrhoids; o/w without abnormality Video Capsule Endoscopy 10/27/20 - normal appearing small bowel Recently started on Eliquis for atrial fibrillation diagnosed on outpatient EKG. Family has noted increasing falls over the last several days as well, including recent admission for mechanical fall. Pt was hypotensive at presentation to ED. Lactate 7.0 at presentation. 09/09/22 EGD neg for source of upper GI bleed. s/p 4 unit prbc, Hb 10.4, Lactate resolved. HnH q12h or as needed. Transfuse if symptomatic or Hb < 8. c/w PPI drip,Fluid diet over the weekend. GI on board, plan for colonoscopy on Monday. Clear liq diet on Monday, Bowel prep on Monday, then NPO for Monday colonoscopy. Hold Eliquis. (4) Acute kidney injury superimposed on CKD: Secondary to hypovolemic shock. Baseline creatinine 1.5-1.6. Admitting creatinine of 2.86, peaked at 3.07, currently downtrending. CT abdomen pelvis reviewed. Continue with IV fluid, hold nephrotoxic, BMP in AM. (5) Status post fall: (6) Lumbar transverse process fracture: Repeated falls at home CT abdomen shows acute right transverse process fracture of L1 and L2. Orthospine evaluated, does not need to limit his activity. PT/OT, CM to assist with DC planning. (7) Chronic heart failure with preserved ejection fraction (HFpEF): Compensated. Hold diuretics and b-blockers for now. Resume as able with improvement of blood pressure. (8) other chronic medical conditions: DM2, generalized weakness, CAD, COPD, dementia associated with Parkinson's disease, primary parkinsonism, GERD, HTN--->> continue home meds as able DVT prophylaxis: SCD due to concern of acute blood loss CODE STATUS: Full code Admission and Anticipated Discharge Date Admission Date: September 08, 2022 Subjective Patient seen and examined at bedside as a follow-up for hypovolemic shock, acute blood loss anemia, heme positive stool, DORYS over CKD, status post fall and lumbar transverse process fracture. Patient was sitting up in chair, on room air, NAD, denies any new acute event overnight, reports eating okay, reports having 1 bowel movement today with no blood in it, denies any headache/dizziness/chest pain/cough/fever/palpitations/belly pain/other review of symptoms. Physical Exam Physical Exam: GENERAL: Alert and oriented x3. NAD, on RA. HEENT: No pallor, no icterus. Pupils equal, round and reactive to light. Oral mucosa moist. NECK: No JVD, no neck masses. HEART: S1 and S2 heard. Regular rate and rhythm. No murmur, no gallop. RESPIRATORY SYSTEM: Normal AP diameter. No accessory muscle use. No wheezing, no crackles. ABDOMEN: Soft, bowel sounds present, nontender, no distention. CENTRAL NERVOUS SYSTEM: No facial droop. Speech is clear. Obeys simple commands. Moves extremities. EXTREMITIES: trace ble edema, no erythema seen. Results & Data Results & Data ([facility]) Vital Signs (Past 12 Hours) Vital Signs Temp Pulse Pulse Pulse Resp BP Pulse Ox 09/10/22 12:00 36.5 C 66 18 126/76 97 09/10/22 09:47 09/10/22 07:29 65 09/10/22 07:17 36.8 C 58 L 18 112/70 95 09/10/22 04:57 36.4 C L 56 L 22 113/57 L 96 O2 Del Method O2 Flow Rate 09/10/22 12:00 Room Air 09/10/22 09:47 Nasal Cannula 2 09/10/22 07:29 09/10/22 07:17 Room Air 09/10/22 04:57 Nasal Cannula 2
[2022-09-10] MEDS: POTASSIUM CHLORIDE CRTAB 20 MEQ TABCR PO SCH (18:27)
[2022-09-10] MEDS: DONEPEZIL HCL 10 MG TAB PO SCH (20:00)
[2022-09-10 21:55] LABS: Hematocrit (blood only) 27.1 % (40.1-51.0); Hemoglobin 9.3 g/dl (14.0-18.0)
[2022-09-11] MEDS: PANTOprazole 40 MG in DEXTROSE 5% 100 ML IV SCH ×5 (01:26→21:43)
[2022-09-11] MEDS: LACTATED RINGER'S 1,000 ML IV SCH (04:13)
[2022-09-11 06:02] LABS: Basophils # (auto) 0.01 K/uL (0-0.2); Basophils % (auto) 0.3 %; Eosinophils # (auto) 0.05 K/uL (0-0.50); Eosinophils % (auto) 1.4 %; Hematocrit (blood only) 28.1 % (40.1-51.0); Hemoglobin 9.6 g/dl (14.0-18.0); Immature Granulocytes # (auto) 0.06 K/uL (0.00-0.02); Immature Granulocytes % (auto) 1.7 %; Lymphocytes # (auto) 0.46 K/uL (1.2-3.4); Lymphocytes % (auto) 12.7 %; Mean Corpuscular Hgb Conc 34.2 g/dL (32.0-36.0); Mean Corpuscular Volume 90.6 fL (80.0-100.0); Monocytes # (auto) 0.48 K/uL (0.24-0.82); Monocytes % (auto) 13.3 %; Neutrophils # (auto) 2.55 K/uL (1.4-6.5); Neutrophils % (auto) 70.6 %; Nucleated RBC # (auto) 0.02 K/uL (0-0); Nucleated RBC % (auto) 0.6 %; Platelet Count 162 K/uL (130-400); RDW Standard Deviation 46.9 fL (36.4-46.3); White Blood Count 3.61 K/ul (4.8-10.8)
[2022-09-11 06:24] LABS: BUN Creatinine Ratio 33.8 (10-20); Est GFR (African American) 50.5 ml/min; Est GFR (Non-African American) 43.6 ml/min; Magnesium 1.9 mg/dl (1.7-2.4); Phosphorus 2.9 mg/dl (2.5-4.9); Potassium 3.1 mmol/L (3.5-5.1)
[2022-09-11] MEDS: LAVAGE SOLUTION 4000ML PO SCH ×4 (07:47→19:27)
[2022-09-11] MEDS: INSULIN ASPART PER UNIT SC SCH ×4 (09:00→21:33)
[2022-09-11] MEDS ORDERED: POTASSIUM CHLORIDE CRTAB 20 MEQ TABCR PO STA (09:17)
[2022-09-11] MEDS: FINASTERIDE 5 MG TAB PO SCH (09:44)
[2022-09-11] MEDS: ATORVASTATIN 40 MG TAB PO SCH (09:44)
[2022-09-11] MEDS: TAMSULOSIN HCL 0.4 MG CAP PO SCH (09:44)
[2022-09-11] MEDS: buPROPion XL 150 MG TABCR PO SCH (09:44)
[2022-09-11] MEDS: FOLIC ACID 1 MG TAB PO SCH (09:44)
[2022-09-11] MEDS: ESCITALOPRAM OXALATE 20 MG TAB PO SCH (09:44)
[2022-09-11] MEDS ORDERED: AMANTADINE HCL 100 MG CAPSULE PO SCH (11:00)
[2022-09-11] MEDS: AMANTADINE HCL 100 MG CAPSULE PO SCH (12:18)
--- NOTE | 2022-09-11 14:51 | Hospitalist Progress Note ---
Date of Service September 11, 2022 Assessment & Plan (1) Hypovolemic shock: Plan 77-year-old male with PMH of heart failure with preserved ejection fraction, DM2, primary parkinsonism with associated dementia, CKD stage IIIb, HTN, wandering atrial pacemaker, CAD with prior CABG x3, HUNTER on regular iron infusion, GERD, HLD, anxiety and BPH was sent to the ED 09/08 from the cardiology office [for regular CHF follow-up] for hypotension and profound weakness. Of note, patient was recently admitted to this facility 09/03-09/04 after mechanical fall at home. Patient noted to have multiple falls at home including sliding off the bedside commode on the day of arrival. His stools are dark at baseline, noted to be heme positive in the ED but no clarita hematochezia. He was recently started on Eliquis 2 weeks ago [employer] for new onset atrial fibrillation. Patient follows with hematology for chronic iron deficiency anemia. He is being managed for the following: (1) Hypovolemic shock: (2) Acute blood loss anemia: (3) Heme positive stool: Unclear source of blood loss but Hgb went from 8.6 on 09/03 to 4.3 09/08 (day of admission) - stools are chronically dark but were noted to be heme positive in ED. EGD 07/08/20 - normal esophagus, stomach; patchy erythematous mucosa without active bleeding in the duodenal bulb. Colonoscopy 07/08/20 - multiple small-mouthed diverticula in the sigmoid colon; internal hemorrhoids; o/w without abnormality Video Capsule Endoscopy 10/27/20 - normal appearing small bowel Recently started on Eliquis for atrial fibrillation diagnosed on outpatient EKG. Family has noted increasing falls over the last several days as well, including recent admission for mechanical fall. Pt was hypotensive at presentation to ED. Lactate 7.0 at presentation. 09/09/22 EGD neg for source of upper GI bleed. s/p 4 unit prbc, Hb 9.6, Lactate resolved. HnH q12h or as needed. Transfuse if symptomatic or Hb < 8. c/w PPI drip, Fluid diet over the weekend. GI on board, d/w GI, plan for colonoscopy on . Clear liq diet on Monday, Bowel prep on Monday, then NPO for Monday colonoscopy. Hold Eliquis. (4) Acute kidney injury superimposed on CKD: Secondary to hypovolemic shock. Baseline creatinine 1.5-1.6. Admitting creatinine of 2.86, peaked at 3.07, currently resolved. CT abdomen pelvis reviewed. Resume home BP meds gradually. (5) Status post fall: (6) Lumbar transverse process fracture: Repeated falls at home CT abdomen shows acute right transverse process fracture of L1 and L2. Orthospine evaluated, does not need to limit his activity. PT/OT, CM to assist with DC planning. (7) Chronic heart failure with preserved ejection fraction (HFpEF): Compensated. Hold diuretics and b-blockers for now. Resume as able with improvement of blood pressure. (8) other chronic medical conditions: DM2, generalized weakness, CAD, COPD, dementia associated with Parkinson's disease, primary parkinsonism, GERD, HTN--->> continue home meds as able DVT prophylaxis: SCD due to concern of acute blood loss CODE STATUS: Full code Admission and Anticipated Discharge Date Admission Date: September 08, 2022 Subjective Patient seen and examined at bedside as a follow-up for hypovolemic shock, acute blood loss anemia, heme positive stool, DORYS over CKD, status post fall and lumbar transverse process fracture. Patient was sitting up in chair, on room air, NAD, denies any new acute event overnight, reports eating okay, reports having 1 brown bowel movement today, denies any headache/dizziness/chest pain/cough/fever/palpitations/belly pain/other review of symptoms. d/w gi, for colonoscopy evette. Physical Exam Physical Exam: GENERAL: Alert and oriented x3. NAD, on RA. HEENT: No pallor, no icterus. Pupils equal, round and reactive to light. Oral mucosa moist. NECK: No JVD, no neck masses. HEART: S1 and S2 heard. Regular rate and rhythm. No murmur, no gallop. RESPIRATORY SYSTEM: Normal AP diameter. No accessory muscle use. No wheezing, no crackles. ABDOMEN: Soft, bowel sounds present, nontender, no distention. CENTRAL NERVOUS SYSTEM: No facial droop. Speech is clear. Obeys simple commands. Moves extremities. EXTREMITIES: trace ble edema, no erythema seen. Results & Data Results & Data ([facility]) Vital Signs (Past 12 Hours) Vital Signs Temp Pulse Pulse Resp BP Pulse Ox O2 Del Method 09/11/22 12:00 36.6 C 100 H 18 129/76 96 Room Air 09/11/22 10:01 75 09/11/22 10:01 Room Air 09/11/22 08:00 36.8 C 92 H 16 148/68 H 92 Room Air 09/11/22 05:21 36.5 C 80 18 165/76 H 90 Room Air
[2022-09-11] MEDS: DONEPEZIL HCL 10 MG TAB PO SCH (19:31)
[2022-09-11 19:56] LABS: Hematocrit (blood only) 31.9 % (40.1-51.0); Hemoglobin 10.8 g/dl (14.0-18.0)
[2022-09-12] MEDS: PANTOprazole 40 MG in DEXTROSE 5% 100 ML IV SCH ×4 (03:14→17:46)
[2022-09-12 04:38] LABS: Hematocrit (blood only) 29.1 % (40.1-51.0); Hemoglobin 9.8 g/dl (14.0-18.0); Mean Corpuscular Hemoglobin 31.1 pg (25.0-34.0); Mean Corpuscular Hgb Conc 33.7 g/dL (32.0-36.0); Mean Corpuscular Volume 92.4 fL (80.0-100.0); Mean Platelet Volume 8.9 fL (9.4-12.4); Platelet Count 157 K/uL (130-400); RDW Standard Deviation 47.4 fL (36.4-46.3); Red Blood Count 3.15 M/uL (4.63-6.08); White Blood Count 2.87 K/ul (4.8-10.8)
[2022-09-12 05:13] LABS: BUN Creatinine Ratio 25.2 (10-20); Creatinine Clr Calc Pharmacy 53.1 ml/min; Est GFR (African American) 73.3 ml/min; Est GFR (Non-African American) 63.3 ml/min; Potassium 3.1 mmol/L (3.5-5.1)
--- NOTE | 2022-09-12 08:26 | History & Physical Report ---
Date of Service September 12, 2022 Assessment & Plan (1) Heme positive stool: Plan: colonoscopy today (2) Acute blood loss anemia: (3) Acute GI bleeding: Admission and Anticipated Discharge Date Admission Date: September 08, 2022 History of Present Illness Chief Complaint: concern for Gi blood loss Primary Care Provider: Michael Hinton MD seen prog notes Allergies Allergy/AdvReac Type Severity Reaction Status Date / Time NSAIDS (Non-Steroidal Allergy Rash Verified 09/09/22 13:37 Anti-Inflamma YONATAN Inhibitors AdvReac Intermediate Cough Verified 09/09/22 13:37 carbidopa AdvReac constipatio Verified 09/09/22 13:37 n levodopa AdvReac constipatio Verified 09/09/22 13:37 n Home Medications Medication Instructions Recorded Confirmed Type atorvastatin 40 mg tablet 40 mg PO QAM 09/02/18 09/08/22 History amantadine HCl 100 mg capsule 100 mg PO QAM 05/22/20 09/08/22 History aspirin 81 mg tablet,delayed 81 mg PO QAM 02/02/21 09/08/22 History release (Negar Low Dose Aspirin) pantoprazole 40 mg tablet,delayed 40 mg PO QAM 02/02/21 09/08/22 History release donepezil 10 mg tablet 10 mg PO HS 05/11/21 09/08/22 History triamterene 37.5 1 tab PO 5XWK 05/11/21 09/08/22 History mg-hydrochlorothiazide 25 mg tablet bupropion HCl 150 mg 24 hr tablet, 150 mg PO DAILY 06/17/21 09/08/22 History extended release fluocinonide 0.05 % topical 1 applic topical DAILY PRN after 06/17/21 09/08/22 History solution bathing metformin 500 mg tablet,extended 500 mg PO QAM 06/17/21 09/08/22 History release 24 hr dupilumab 300 mg/2 mL subcutaneous 300 mg subcut .every 2 weeks 03/03/22 09/08/22 History pen injector (Dupixent) escitalopram oxalate 20 mg tablet 20 mg PO QAM #90 tabs 03/29/22 09/08/22 Rx metoprolol succinate 25 mg 25 mg PO QAM #90 tabs 04/19/22 09/08/22 Rx tablet,extended release 24 hr apixaban 5 mg tablet (Eliquis) 5 mg PO BID 09/02/22 09/08/22 History furosemide 40 mg tablet 40 mg PO Q OTHER DAY #30 tabs 09/04/22 09/08/22 Rx albuterol sulfate 90 mcg/actuation 2 puff inhalation QID PRN 09/08/22 09/08/22 History aerosol inhaler Shortness Of Breath Or Wheezing betamethasone dipropionate 0.05 % 1 applic topical BID PRN Skin 09/08/22 09/08/22 History topical cream Irritation ferrous sulfate 325 mg (65 mg 325 mg PO BID 09/08/22 09/08/22 History iron) tablet (FeroSul) finasteride 5 mg tablet 5 mg PO QAM 09/08/22 09/08/22 History potassium chloride 20 mEq 20 meq PO Q2D 09/08/22 09/08/22 History tablet,extended release tamsulosin 0.4 mg capsule 0.4 mg PO QAM 09/08/22 09/08/22 History 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 Diabetes type 2, controlled Diabetic ulcer of right heel associated with diabetes mellitus due to underlying condition, with fat layer exposed Dyslipidemia Fall GERD (gastroesophageal reflux disease) HTN (hypertension) HTN (hypertension) Lumbar spondylosis Moderate mitral regurgitation Orthostatic hypotension (07/2019) Peripheral arterial disease Primary parkinsonism Seasonal allergies 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 Beliefs That Will Affect Care: None marital status: Current Living Situation: Spouse Current Living Situation Comment: Lives at home with spouse Other Information That Helps Us Care for You: No Feels Safe at Home: Yes Safety Concerns: Feels Safe At This Time Assistive Devices: Oxygen - at Night and Walker Results & Data ([facility]) Vital Signs (Past 12 Hours) Vital Signs Temp Pulse Pulse Resp BP Pulse Ox O2 Del Method 09/12/22 08:12 36.7 C 126 H 16 164/99 H 95 Room Air 09/12/22 07:20 36.8 C 101 H 17 135/80 93 Room Air 09/12/22 04:37 36.9 C 113 H 18 145/80 H 94 Room Air 09/11/22 23:24 36.5 C 93 H 18 168/92 H 98 Room Air 09/11/22 20:55 36.6 C 81 20 154/85 H 96 Room Air Code Status & VTE Plan VTE Prophylaxis Plan VTE Prophylaxis will be ordered: Yes
[2022-09-12] MEDS ORDERED: PROPOFOL IV EMULSION 10 MG/ML 20 ML VIAL IV ONE (08:33)
[2022-09-12] MEDS ORDERED: METOPROLOL TARTRATE 1 MG/ML VIAL IV ONE (08:34)
--- NOTE | 2022-09-12 09:03 | GI REPORT ---
Patient Name: Jesus Jose Procedure Date: 09/12/2022 8:23 AM Date of : 1945 Admit Type: Inpatient Age: 77 Gender: Male Attending MD: Amy Palumbo DO, Procedure: Colonoscopy Providers: Amy Palumbo DO Referring MD: Tonia Baeza Md Indications: Heme positive stool, Unexplained iron deficiency anemia Medicines: Monitored Anesthesia Care Complications: No immediate complications. Estimated blood loss: Minimal. Estimated Blood Loss: Estimated blood loss was minimal. Procedure: Pre-Anesthesia Assessment: - Prior to the procedure, a History and Physical was performed, and patient medications, allergies and sensitivities were reviewed. The patient's tolerance of previous anesthesia was reviewed. - The risks and benefits of the procedure and the sedation options and risks were discussed with the patient. All questions were answered and informed consent was obtained. - Patient identification and proposed procedure were verified prior to the procedure by the physician and the nurse. The procedure was verified in the pre-procedure area in the procedure room. - Mental Status Examination: alert and oriented. Airway Examination: normal oropharyngeal airway and neck mobility. Respiratory Examination: clear to auscultation. CV Examination: normal. Abdominal Examination: bowel sounds present, abdomen soft and non-tender, no masses or organomegaly noted. - ASA Grade Assessment: IV - A patient with severe systemic disease that is a constant threat to life. After I obtained informed consent, the scope was passed under direct vision. Throughout the procedure, the patient's blood pressure, pulse, and oxygen saturations were monitored continuously. The scope was introduced through the anus and advanced to the terminal ileum. The colonoscopy was performed without difficulty. The patient tolerated the procedure well. The quality of the bowel preparation was good. Findings: The perianal and digital rectal examinations were normal. Pertinent negatives include normal sphincter tone and no palpable rectal lesions. The terminal ileum appeared normal. Multiple small and large-mouthed diverticula were found in the sigmoid colon. A 4 mm polyp was found in the sigmoid colon. The polyp was sessile. The polyp was removed with a cold snare. Resection and retrieval were complete. Verification of patient identification for the specimen was done by the physician and nurse using the patient's name and date. Estimated blood loss was minimal. Internal hemorrhoids were found during retroflexion. The hemorrhoids were medium-sized and Grade I (internal hemorrhoids that do not prolapse). Impression: - The examined portion of the ileum was normal. - Diverticulosis in the sigmoid colon. - One 4 mm polyp in the sigmoid colon, removed with a cold snare. Resected and retrieved. - Internal hemorrhoids. Recommendation: - Await pathology results. - Return patient to [facility] for ongoing care. Amy Palumbo D.O. Amy Palumbo, 09/12/2022 9:02:30 AM This report has been signed electronically. Note Initiated On: 09/12/2022 8:23 AM Number of Addenda: 0 I attest to the content of the Intraoperative Record and orders documented therein, exceptions below {[id number]}
[2022-09-12] MEDS: INSULIN ASPART PER UNIT SC SCH ×4 (09:18→20:49)
[2022-09-12] MEDS: buPROPion XL 150 MG TABCR PO SCH (09:45)
[2022-09-12] MEDS: ESCITALOPRAM OXALATE 20 MG TAB PO SCH (09:45)
[2022-09-12] MEDS: ATORVASTATIN 40 MG TAB PO SCH (09:45)
[2022-09-12] MEDS: FINASTERIDE 5 MG TAB PO SCH (09:45)
[2022-09-12] MEDS: FOLIC ACID 1 MG TAB PO SCH (09:46)
[2022-09-12] MEDS: TAMSULOSIN HCL 0.4 MG CAP PO SCH (09:46)
--- NOTE | 2022-09-12 09:54 | Anesthesiology Progress Note ---
Date of Service September 12, 2022 Anesthesia Post Procedure Vital Signs Vital Signs: Temp Pulse Pulse Pulse Resp BP Pulse Ox 09/12/22 09:31 108 H 16 137/93 96 09/12/22 09:16 104 H 16 148/94 H 100 09/12/22 09:01 101 H 16 132/79 100 09/12/22 08:12 36.7 C 126 H 16 164/99 H 95 09/12/22 07:20 36.8 C 101 H 17 135/80 93 09/12/22 04:37 36.9 C 113 H 18 145/80 H 94 09/11/22 23:24 36.5 C 93 H 18 168/92 H 98 09/11/22 19:23 09/11/22 20:55 36.6 C 81 20 154/85 H 96 09/11/22 16:30 36.5 C 90 18 137/77 96 09/11/22 12:00 36.6 C 100 H 18 129/76 96 09/11/22 10:01 75 09/11/22 10:01 O2 Del Method 09/12/22 09:31 Room Air 09/12/22 09:16 Room Air 09/12/22 09:01 Room Air 09/12/22 08:12 Room Air 09/12/22 07:20 Room Air 09/12/22 04:37 Room Air 09/11/22 23:24 Room Air 09/11/22 19:23 Room Air 09/11/22 20:55 Room Air 09/11/22 16:30 Room Air 09/11/22 12:00 Room Air 09/11/22 10:01 09/11/22 10:01 Room Air Transfer of Care Handoff Completed per policy Notes Mental Status: alert / awake / arousable and participated in evaluation Patient Amnestic to Procedure: Yes Nausea / Vomiting: adequately controlled Pain: adequately controlled Airway Patency, RR, SpO2: stable & adequate BP & HR: stable & adequate Hydration State: stable & adequate Anesthetic Complications: no major complications apparent and Pt Satisfied with anesthetic care
[2022-09-12] MEDS: POTASSIUM CHLORIDE / WTR 10 MEQ/100 ML PLCT IV SCH ×2 (10:02→11:01)
[2022-09-12] MEDS: AMANTADINE HCL 100 MG CAPSULE PO SCH (12:58)
[2022-09-12] MEDS ORDERED: POTASSIUM CHLORIDE CRTAB 20 MEQ TABCR PO STA (16:57)
--- NOTE | 2022-09-12 17:06 | Hospitalist Progress Note ---
Date of Service September 12, 2022 Assessment & Plan (1) Hypovolemic shock: Plan 77-year-old male with PMH of heart failure with preserved ejection fraction, DM2, primary parkinsonism with associated dementia, CKD stage IIIb, HTN, wandering atrial pacemaker, CAD with prior CABG x3, HUNTER on regular iron infusion, GERD, HLD, anxiety and BPH was sent to the ED 09/08 from the cardiology office [for regular CHF follow-up] for hypotension and profound weakness. Of note, patient was recently admitted to this facility 09/03-09/04 after mechanical fall at home. Patient noted to have multiple falls at home including sliding off the bedside commode on the day of arrival. His stools are dark at baseline, noted to be heme positive in the ED but no clarita hematochezia. 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 Patient follows with hematology for chronic iron deficiency anemia. He is being managed for the following: (1) Hypovolemic shock: (2) Acute blood loss anemia: (3) Heme positive stool: Unclear source of blood loss but Hgb went from 8.6 on 09/03 to 4.3 09/08 (day of admission) - stools are chronically dark but were noted to be heme positive in ED. EGD 07/08/20 - normal esophagus, stomach; patchy erythematous mucosa without active bleeding in the duodenal bulb. Colonoscopy 07/08/20 - multiple small-mouthed diverticula in the sigmoid colon; internal hemorrhoids; o/w without abnormality Video Capsule Endoscopy 10/27/20 - normal appearing small bowel Recently started on Eliquis for atrial fibrillation diagnosed on outpatient EKG. Family has noted increasing falls over the last several days as well, including recent admission for mechanical fall. Pt was hypotensive at presentation to ED. Lactate 7.0 at presentation. 09/09/22 EGD neg for source of upper GI bleed. s/p 4 unit prbc, Hb 9.8, Lactate resolved. HnH daily or as needed. Transfuse if symptomatic or Hb < 8. 09/12 Colonoscopy: one 4 mm polyp in sigmoid colon, removed w/ cold snare ---> f/u patho reports. IV to PO PPI. Advance diet as stefania. GI on board, d/w GI -> can resume anticoag evette. Eiquis on hold (4) Acute kidney injury superimposed on CKD: Secondary to hypovolemic shock. Baseline creatinine 1.5-1.6. Admitting creatinine of 2.86, peaked at 3.07, currently resolved. CT abdomen pelvis reviewed. Resume home BP meds gradually. (5) Status post fall: (6) Lumbar transverse process fracture: Repeated falls at home CT abdomen shows acute right transverse process fracture of L1 and L2. Orthospine evaluated, does not need to limit his activity. PT/OT, CM to assist with DC planning. (7) Chronic heart failure with preserved ejection fraction (HFpEF): Compensated. Hold diuretics and b-blockers for now. Resume as able with improvement of blood pressure. (8) other chronic medical conditions: DM2, generalized weakness, CAD, COPD, dementia associated with Parkinson's disease, primary parkinsonism, GERD, HTN--->> continue home meds as able DVT prophylaxis: SCD due to concern of acute blood loss CODE STATUS: Full code Dispo: PT/OT, CM to assist w/ dc plan. PT/OT home w/ HH, per CM, pt has active medi HH which will start when pt dc'd. Admission and Anticipated Discharge Date Admission Date: September 08, 2022 Subjective Patient seen and examined at bedside as a follow-up for hypovolemic shock, acute blood loss anemia, heme positive stool, DORYS over CKD, status post fall and lumbar transverse process fracture. Patient was sitting up in chair, on room air, NAD, denies any new acute event overnight, reports eating okay, reports having 1 brown bowel movement yesterday, had colonoscopy today, denies any headache/dizziness/chest pain/cough/fever/palpitations/belly pain/other review of symptoms. Physical Exam Physical Exam: GENERAL: Alert and oriented x3. NAD, on RA. HEENT: No pallor, no icterus. Pupils equal, round and reactive to light. Oral mucosa moist. NECK: No JVD, no neck masses. HEART: S1 and S2 heard. Regular rate and rhythm. No murmur, no gallop. RESPIRATORY SYSTEM: Normal AP diameter. No accessory muscle use. No wheezing, no crackles. ABDOMEN: Soft, bowel sounds present, nontender, no distention. CENTRAL NERVOUS SYSTEM: No facial droop. Speech is clear. Obeys simple commands. Moves extremities. EXTREMITIES: trace ble edema, no erythema seen. Results & Data Results & Data ([facility]) Vital Signs (Past 12 Hours) Vital Signs Temp Pulse Pulse Resp BP Pulse Ox O2 Del Method 09/12/22 15:25 36.7 C 113 H 19 127/81 98 Room Air 09/12/22 11:28 36.4 C L 92 H 21 130/82 92 Room Air 09/12/22 10:00 Room Air 09/12/22 09:31 108 H 16 137/93 96 Room Air 09/12/22 09:16 104 H 16 148/94 H 100 Room Air 09/12/22 09:01 101 H 16 132/79 100 Room Air 09/12/22 08:12 36.7 C 126 H 16 164/99 H 95 Room Air 09/12/22 07:20 36.8 C 101 H 17 135/80 93 Room Air
[2022-09-12] MEDS ORDERED: TRIAMTERENE/HCTZ 37.5/25MG TAB PO SCH (17:15)
[2022-09-12] MEDS: POTASSIUM CHLORIDE CRTAB 20 MEQ TABCR PO SCH (18:05)
[2022-09-12] MEDS ORDERED: MAGNESIUM SULFATE / D5W 1 GM/100 ML BAG IV ONE ×2 (19:43→22:42)
[2022-09-12] MEDS ORDERED: POTASSIUM CHLORIDE PWD 20 MEQ PACK PO STA (19:44)
[2022-09-12] MEDS ORDERED: LACTATED RINGER'S 1,000 ML IV ONE (19:45)
[2022-09-12] MEDS ORDERED: dilTIAZem HCl 5 MG/ML 5 ML VIAL IV STA (19:45)
--- NOTE | 2022-09-12 19:47 | Communication Note ---
Date of Service: September 12, 2022
[2022-09-12] MEDS ORDERED: METOPROLOL TARTRATE 25 MG TAB PO STA (19:51)
[2022-09-12] MEDS: FERROUS SULFATE 325 MG TAB PO SCH (20:20)
[2022-09-12] MEDS: DONEPEZIL HCL 10 MG TAB PO SCH (20:21)
[2022-09-12] MEDS: PANTOprazole 40 MG TAB PO SCH (21:22)
[2022-09-13 06:07] LABS: Hematocrit (blood only) 28.8 % (40.1-51.0); Hemoglobin 9.5 g/dl (14.0-18.0); Mean Corpuscular Hemoglobin 30.6 pg (25.0-34.0); Mean Corpuscular Volume 92.9 fL (80.0-100.0); Mean Platelet Volume 9.2 fL (9.4-12.4); Platelet Count 138 K/uL (130-400); RDW Coefficient of Variation 14.6 % (11.5-14.5); RDW Standard Deviation 48.6 fL (36.4-46.3); White Blood Count 3.24 K/ul (4.8-10.8)
[2022-09-13 06:20] LABS: Partial Thromboplastin Time 26.7 Seconds (21.0-31.0)
[2022-09-13 06:36] LABS: BUN Creatinine Ratio 16.5 (10-20); Creatinine Clr Calc Pharmacy 44.3 ml/min; Est GFR (African American) 58.9 ml/min; Est GFR (Non-African American) 50.8 ml/min; Potassium 4.4 mmol/L (3.5-5.1)
[2022-09-13] MEDS ORDERED: METOPROLOL TARTRATE 25 MG TAB PO SCH (09:00)
[2022-09-13] MEDS ORDERED: FUROSEMIDE 40 MG TAB PO SCH ×2 (09:00)
[2022-09-13] MEDS: FERROUS SULFATE 325 MG TAB PO SCH (09:30)
[2022-09-13] MEDS: PANTOprazole 40 MG TAB PO SCH (09:30)
[2022-09-13] MEDS: buPROPion XL 150 MG TABCR PO SCH (09:30)
[2022-09-13] MEDS: ATORVASTATIN 40 MG TAB PO SCH (09:31)
[2022-09-13] MEDS: FINASTERIDE 5 MG TAB PO SCH (09:31)
[2022-09-13] MEDS: ESCITALOPRAM OXALATE 20 MG TAB PO SCH (09:31)
[2022-09-13] MEDS: TAMSULOSIN HCL 0.4 MG CAP PO SCH (09:31)
[2022-09-13] MEDS: FOLIC ACID 1 MG TAB PO SCH (09:31)
[2022-09-13] MEDS: INSULIN ASPART PER UNIT SC SCH ×2 (09:32→13:13)
[2022-09-13] MEDS: AMANTADINE HCL 100 MG CAPSULE PO SCH (11:15)
--- NOTE | 2022-09-13 12:58 | Discharge Summary ---
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 Pt was recently admitted to this facility 09/03-09/04 after a mechanical fall at home. He was following up with cardiology today due to chronic heart failure. History obtained from the patient, his , and his daughter at the bedside. Since being discharged, pt has continued to get weaker and more fatigued. Saw [facility] on Monday and noted to have low BP. Over the last two days, he has had multiple falls at home including sliding off the bedside commode earlier today. He has been more short of breath, even at rest. Dizziness and frequently falling asleep but no clear syncopal episode. No complaints of chest pain or palpitations. His stools are dark at baseline - noted to be heme positive in the ED but no clarita hematochezia. No hematuria, gingival bleeding or significant epistaxis. He was recently started on Eliquis two weeks ago for new onset atrial fibrillation that was diagnosed by EKG done by [facility]. Per notes and family, he was to have a Zio as an ou tpatient to determine potential need for a pacemaker. Pt follows with hematology for chronic iron deficiency anemia. He was having intermittent iron infusions but recently established with Dr. Smith who was planning to do the infusions more regularly. He has required transfusion for the anemia previously - two units in 2019, two units in 2020. Family denies prior hx of known GI bleeding. Pt reports that his stomach has been more unsettled today with nausea but no vomiting, no significant abdominal pain. Pt has baseline dementia which family reports has been worse the past few days. EGD 07/08/20 - normal esophagus, stomach; patchy erythematous mucosa without active bleeding in the duodenal bulb. Colonoscopy 07/08/20 - multiple small-mouthed diverticula in the sigmoid colon; internal hemorrhoids; o/w without abnormality Video Capsule Endoscopy 10/27/20 - normal appearing small bowel Admission Exam Per Admitting Provider Constitutional: + frail appearing (and pale); no acute d istress Eyes: conjunctival pallor ENMT: +hard of hearing Neck: trachea midline Respiratory: + labored breathing (mildly increased WO B); no respiratory distress and does not use accessory muscles Auscultation: + diminished lung sounds Cardiovascular: Regular rhythm with occasional ectopy, +systolic murmur trace LE edema Gastrointestinal (Abdomen): Inspection/Auscultation: normal bowel sounds; abdomen not distended Percussion/Palpation: abdomen soft; abdomen nontender Musculoskeletal: Head/Neck/Chest: normocephalic, head atraumatic and neck supple Skin: + pallor Neurologic: moves all extremities; no focal motor deficits Principal Diagnosis Acute blood loss anemia Heme positive stool Acute kidney injury superimposed on CKD Status post fall and lumbar transverse process fracture Discharge Exam GENERAL: Alert and oriented x3. NAD, on RA. HEENT: No pallor, no icterus. Pupils equal, round and reactive to light. Oral mucosa moist. NECK: No JVD, no neck masses. HEART: S1 and S2 heard. Regular rate and rhythm. No murmur, no gallop. RESPIRATORY SYSTEM: Normal AP diameter. No accessory muscle use. No wheezing, no crackles. ABDOMEN: Soft, bowel sounds present, nontender, no distention. CENTRAL NERVOUS SYSTEM: No facial droop. Speech is clear. Obeys simple commands. Moves extremities. EXTREMITIES: trace ble edema, no erythema seen. Discharge Data Allergies Allergy/AdvReac Type Severity Reaction Status Date / Time NSAIDS (Non-Steroidal Allergy Rash Verified 09/09/22 13:37 Anti-Inflamma YONATAN Inhibitors AdvReac Intermediate Cough Verified 09/09/22 13:37 carbidopa AdvReac constipatio Verified 09/09/22 13:37 n levodopa AdvReac constipatio Verified 09/09/22 13:37 n Consultations 09/08/22 16:51 ED Decision to Admit Stat 09/08/22 20:11 Consult Gastroenterology Routine 09/09/22 15:20 Consult Orthopedic Surgery Routine Procedures Performed Operation Date: 09/09/22 17:00 Actual Procedures p Esophagogastroduodenoscopy - Chong Estrada, Operation Date: 09/12/22 16:30 Actual Procedures p Colonoscopy Polypectomy - Amy Palumbo, DO Ordered Studies 09/08/22 18:09 CT Abd and Pelvis [CT abd pelvis wo con] Urgent Hospital Course (1) Hypovolemic shock: Plan 77-year-old male with PMH of heart failure with preserved ejection fraction, DM2, primary parkinsonism with associated dementia, CKD stage IIIb, HTN, wandering atrial pacemaker, CAD with prior CABG x3, HUNTER on regular iron infusion, GERD, HLD, anxiety and BPH was sent to the ED 09/08 from the cardiology office [for regular CHF follow-up] for hypotension and profound weakness. Of note, patient was recently admitted to this facility 09/03-09/04 after mechanical fall at home. Patient noted to have multiple falls at home including sliding off the bedside commode on the day of arrival. His stools are dark at baseline, noted to be heme positive in the ED but no clarita hematochezia. He was recently started on Eliquis 2 weeks ago [employer]ID[employer] for new onset atrial fibrillation. Patient follows with hematology for chronic iron deficiency anemia. He was managed for the following: (1) Hypovolemic shock: (2) Acute blood loss anemia: (3) Heme positive stool: Unclear source of blood loss but Hgb went from 8.6 on 09/03 to 4.3 09/08 (day of admission) - stools are chronically dark but were noted to be heme positive in ED. EGD 07/08/20 - normal esophagus, stomach; patchy erythematous mucosa without active bleeding in the duodenal bulb. Colonoscopy 07/08/20 - multiple small-mouthed diverticula in the sigmoid colon; internal hemorrhoids; o/w without abnormality Video Capsule Endoscopy 10/27/20 - normal appearing small bowel Recently started on Eliquis for atrial fibrillation diagnosed on outpatient EKG. Family has noted increasing falls over the last several days as well, including recent admission for mechanical fall. Pt was hypotensive at presentation to ED. Lactate 7.0 at presentation. 09/09/22 EGD neg for source of upper GI bleed. s/p 4 unit prbc, Hb 9.8, Lactate resolved. HnH daily or as needed. Hb stable, pt feels better and would like to go home, had been having brown BM and tolerating diet 09/12 Colonoscopy: one 4 mm polyp in sigmoid colon, removed w/ cold snare ---> f/u patho reports. PPI BID, GI f/u upon DC. GI on board, d/w GI -> can resume anticoag evette. Eliquis will be started today. PCP in a week time and then cbc/cmp/Mg level. (4) Acute kidney injury superimposed on CKD: Secondary to hypovolemic shock. Baseline creatinine 1.5-1.6. Admitting creatinine of 2.86, peaked at 3.07, currently resolved. CT abdomen pelvis reviewed. Resume home BP meds gradually. (5) Status post fall: (6) Lumbar transverse process fracture: Repeated falls at home CT abdomen shows acute right transverse process fracture of L1 and L2. Orthospine evaluated, does not need to limit his activity. PT/OT, CM to assist with DC planning. (7) Chronic heart failure with preserved ejection fraction (HFpEF): Compensated. Hold diuretics and b-blockers for now. Resume as able with improvement of blood pressure. (8) other chronic medical conditions: DM2, generalized weakness, CAD, COPD, dementia associated with Parkinson's disease, primary parkinsonism, GERD, HTN--->> continue home meds as able DVT prophylaxis: SCD due to concern of acute blood loss CODE STATUS: Full code Dispo: PT/OT, CM to assist w/ dc plan. PT/OT home w/ HH, per CM, pt has active medi HH which will start when pt dc'd. Patient being discharged home with home health with following instruction at the point of discharge: Follow-up with your primary care physician within a week time and likely you will need blood test CBC/CMP/magnesium. Resume your Eliquis from today evening, you will be discharged on Protonix 40 mg twice a day, maintain follow-up with your GI doctor as an outpatient. You underwent colonoscopy while in hospital, a polyp was taken out, the pathology result has not resulted, you will need to follow-up either with your PCP or GI doctor on the final results of your polyp. Continue with physical therapy at home. Take your medications as prescribed. Home Health Attestation I certify that this patient is under my care and that I, or a physicians assistant finance manager working with me, had a face to-face encounter that meets the home health [id number] encounter requirements with this patient. The encounter with the patient was in whole, or in part, for the following medical condition, which is the primary reason for home health care (list medical condition): acute blood loss anemia I certify that, based on my findings, the following services are medically necessary home health services: My clinical findings support the need for the above services because: OT Assess ADL Status and Restore Function w ADLs PT Assessment for Endurance / Balance / Strength PT Eval for Safety and Mobility PT Eval for Safety, Gait Training, Assistive Devices PT Gait and Balance Training, Strengthening and Safety Skilled Nsg Assessment Skilled Nsg Assess Pt Illness, Disease and Sx Monitoring Further, I certify that my clinical findings support that this patient is homebound (i.e. absences from home require considerable and taxing effort and are for medical reasons or faith services or infrequently or of short duration when for other reasons) because: Supportive Aid - Walker Transportation Assistance/Unable to Leave Home Unassisted Certification for Home Health Services: Based on the above findings, I certify that this patient is confined to the home and needs intermittent snf care, physical therapy and/or speech therapy or continues to need occupational therapy. The patient is under my care, and I have initiated the establishment of the plan of care. This patient will be followed by a physician who will periodically review the plan of care. Total Time Total Time Spent Total Time Spent (In Minutes): 45 Discharge Plan Discharge Items Patient Disposition: Home - Home Health Services Reason For Visit: ACUTE BLOOD LOSS ANEMIA Discharge Diagnosis: Acute blood loss anemia Heme positive stool Acute kidney injury superimposed on CKD Status post fall and lumbar transverse process fracture Activity: Resume your previous activity Non-emergency contact: Primary Care Provider Call non-emergency contact if: you have any medication questions, your symptoms worsen and your temperature is above 101 Follow-up/Referrals: Michael Hinton MD [Primary Care Provider] - Diet: Carb Consistent or DM2 and Heart Healthy Addtl Attending Provider Instructions: Follow-up with your primary care physician within a week time and likely you will need blood test CBC/CMP/magnesium. Resume your Eliquis from today evening, you will be discharged on Protonix 40 mg twice a day, maintain follow-up with your GI doctor as an outpatient. You underwent colonoscopy while in hospital, a polyp was taken out, the pathology result has not resulted, you will need to follow-up either with your PCP or GI doctor on the final results of your polyp. Continue with physical therapy at home. Take your medications as prescribed. Pending Studies at Discharge: Yes (Admitting blood culture final results.) Stand-Alone Forms: My [facility], Smoking Cessation Medications and DC Order Prescriptions: New folic acid 1 mg Tablet 1 mg PO QAM 30 Days Qty: 30 0RF Continued escitalopram oxalate 20 mg tablet 20 mg PO QAM Qty: 90 3RF metoprolol succinate 25 mg tablet extended release 24 hr 25 mg PO QAM Qty: 90 3RF Eliquis 5 mg tablet 5 mg PO BID amantadine HCl 100 mg capsule 100 mg PO QAM Rx Instructions: ordered bid but takes only in morning Dupixent Pen 300 mg/2 mL pen injector 300 mg subcut .every 2 weeks Rx Instructions: Every other Monday- donepezil 10 mg tablet 10 mg PO HS triamterene-hydrochlorothiazid 37.5-25 mg tablet 1 tab PO [id number] Rx Instructions: take daily except Tuesdays and Fridays. atorvastatin 40 mg Tablet 40 mg PO QAM furosemide 40 mg tablet 40 mg PO Q OTHER DAY Qty: 30 3RF tamsulosin 0.4 mg capsule 0.4 mg PO QAM finasteride 5 mg tablet 5 mg PO QAM ferrous sulfate [FeroSul] 325 mg (65 mg iron) Tablet 325 mg PO BID albuterol sulfate 90 mcg/actuation HFA aerosol inhaler 2 puff INHALATION QID PRN (Reason: Shortness Of Breath Or Wheezing) betamethasone dipropionate [Diprolene] 0.05 % Cream 1 applic TOPICAL BID PRN (Reason: Skin Irritation) Rx Instructions: apply to trunk rash twice daily as needed potassium chloride 20 mEq tablet extended release 20 meq PO Q2D Rx Instructions: Take with Furosemide every other day aspirin [Negar Low Dose Aspirin] 81 mg Tablet,Delayed Release (Dr/Ec) 81 mg PO QAM metformin 500 mg tablet extended release 24 hr 500 mg PO QAM bupropion HCl 150 mg tablet extended release 24 hr 150 mg PO DAILY fluocinonide 0.05 % solution 1 applic TOPICAL DAILY PRN (Reason: after bathing) Rx Instructions: apply to scalp Changed pantoprazole 40 mg tablet,delayed release (DR/EC) 40 mg PO BID Qty: 60 0RF Discharge Orders: Discharge Order (Routine); Ordered 09/13/22 Ordered By: Tonia Baeza Admission Data Admit Date/Time: 09/08/22 17:37 Attending Provider: Tonia Baeza Admit Provider: Jennifer Fishman Primary Care Provider: Michael Hinton Other Providers: Jennifer Fishman ; Kishor Manuel ; Chong Estrada ; Larry Cobb Other Interventions: Discharge Summary Assessment (RN) Last Done: 09/12/22 09:01
--- NOTE | 2022-09-14 23:19 | Electrocardiogram Report ---
Test Reason : Blood Pressure : / mmHG Vent. Rate : 121 BPM Atrial Rate : 092 BPM P-R Int : 000 ms QRS Dur : 090 ms QT Int : 328 ms P-R-T Axes : 000 -47 102 degrees QTc Int : 465 ms Atrial fibrillation with rapid ventricular response Left axis deviation Cannot rule out Anterior infarct , age undetermined Nonspecific T wave abnormality Possible Inferior infarct Abnormal ECG When compared with ECG of 08-SEP-2022 15:50, Atrial fibrillation has replaced Sinus rhythm Confirmed by Richardson Leone ([id number]) on 09/14/2022 11:18:42 PM Referred By: Michael Stanton Confirmed By:Richardson Leone
== END 2022-09-13 16:09 | disposition home health service (06) | DRG 377 ==
LOC: ED 15:26 → 4W 17:37 → SUATTDRO 17:37 → 4W 18:54

== ENCOUNTER 2023-01-24 15:31 | Inpatient (IN) ==
--- NOTE | 2023-01-24 16:53 | XRay Report ---
XR chest 1V portable HISTORY: 77 years-old Male dizziness acute dizziness COMPARISON: Chest radiograph 09/08/2022 TECHNIQUE: AP view of the chest FINDINGS: Cardiac silhouette is enlarged. Prior median sternotomy with CABG. Unchanged right hemidiaphragmatic elevation. No pneumothorax, pleural effusion, airspace consolidation or pulmonary edema. Degenerative changes of the shoulders and spine. Healed chronic left-sided rib fractures. IMPRESSION: Cardiomegaly without acute process. ACT 112: Negative or not required by law. The above report was generated using voice recognition software. It may contain grammatical, syntax o r spelling errors. Electronically signed by: David Stewart M.D. 01/24/2023 4:51 PM
[2023-01-24 17:21] LABS: Basophils # (auto) 0.01 K/uL (0-0.2); Basophils % (auto) 0.2 %; Hematocrit (blood only) 30.5 % (42.0-52.0); Hemoglobin 10.6 g/dl (14.0-18.0); Immature Granulocytes # (auto) 0.02 K/uL (0.01-0.20); Immature Granulocytes % (auto) 0.4 %; Lymphocytes # (auto) 0.42 K/uL (1.2-3.4); Lymphocytes % (auto) 7.9 %; Mean Corpuscular Hemoglobin 34.6 pg (25.0-34.0); Mean Corpuscular Hgb Conc 34.8 g/dL (32.0-36.0); Mean Corpuscular Volume 99.7 fL (80.0-100.0); Mean Platelet Volume 10.1 fL (9.4-12.4); Monocytes % (auto) 9.4 %; Neutrophils # (auto) 4.38 K/uL (1.40-6.50); Neutrophils % (auto) 82.1 %; Platelet Count 121 K/uL (130-400); RDW Coefficient of Variation 14.3 % (11.5-14.5); RDW Standard Deviation 51.9 fL (36.4-46.3); Red Blood Count 3.06 M/uL (4.70-6.10); White Blood Count 5.33 K/ul (4.8-10.8)
[2023-01-24] MEDS ORDERED: SODIUM CHLORIDE 0.9% 500 ML IV ONE (17:22)
[2023-01-24 17:28] LABS: Appearance Urine Clear (Clear); Bilirubin Urine Negative (Negative); Blood Urine Negative (Negative); Color Urine Yellow; Glucose Urine UA Negative (Negative); Ketones Urine Negative (Negative); Leukocyte Esterase Urine Negative (Negative); Nitrite Urine Negative (Negative); Protein Urine Negative (Negative); Specific Gravity Urine 1.008 (1.000-1.030); Urobilinogen Urine Negative (Negative); pH Urine 5.5 (4.5-7.5)
[2023-01-24 17:30] LABS: Albumin Level 4.3 gm/dl (3.4-5.0); Bilirubin,Total 0.5 mg/dl (0.2-1.0); Calcium 9.2 mg/dl (8.6-10.3); Potassium 3.5 mmol/L (3.5-5.1)
[2023-01-24 17:36] LABS: Albumin Globulin Ratio 1.8 (0.9-2); Creatinine Clr Calc Pharmacy 33.6 ml/min; Est GFR (African American) 39.8 ml/min; Est GFR (Non-African American) 34.3 ml/min; Globulin 2.4 gm/dl (2.5-4.0); Phosphorus 2.2 mg/dl (2.5-4.9); Total Protein 6.7 gm/dl (6.0-8.3)
[2023-01-24 17:41] LABS: Troponin I High Sensitivity 10.1 pg/ml (0-20)
[2023-01-24] MEDS ORDERED: FAMOTIDINE 20MG IV PUSH 20 MG/5 ML SYR IV STA (18:37)
[2023-01-24 19:36] LABS: Influenza A virus by PCR Negative (Neg); Influenza B virus by PCR Negative (Neg); RSV by PCR Negative (Neg); SARS CoV2 RNA(COVID-19) Ceph NEGATIVE (Negative)
--- NOTE | 2023-01-24 20:25 | Emergency Department Note ---
Impression & Plan Primary parkinsonism, Dementia associated with Parkinson's disease, Ambulatory dysfunction, Diarrhea, Generalized weakness, CKD (chronic kidney disease) stage 3, GFR 30-59 ml/min ED Provider Note NAME: CHE BURCH AGE: 77 SEX: M ARRIVES VIA: Ambulance INFORMANT: Patient ED PROVIDER(S): Babar Wilburn MD CHIEF COMPLAINT: Weakness, diarrhea PLAN: Disposition: Admit MEDICAL DECISION MAKING: The patient is a pleasant 77-year-old gentleman with a past medical history of Parkinson disease, dementia, BPH, hypertension, hyperlipidemia, CKD, type 2 diabetes, CHF, paroxysmal atrial fibrillation, amatory dysfunction who presents to the emergency department via EMS and then accompanied by his for evaluation of rapid onset of generalized weakness today in the setting of having weakness with decreased appetite and diarrhea for the past several days. Denies any cough or congestion. The reports that he suddenly had weakness when he was walking where he was about to collapse but the room to get to him in time to lower them down softly to the ground. On arrival the patient is in no acute distress, afebrile stable vital signs. He appears clinically dry and the patient's chronic bilateral lower extremity edema is improved from prior per his . He has no focal weakness. EKG demonstrates suspected atrial fibrillation. Chest x-ray negative for acute cardiopulmonary process. KUB with nonobstructive bowel gas pattern per my preliminary review. WBC within normal limits. H/H and platelets similar to prior range values. Chemistry without metabolic acidosis. Creatinine 1.8, similar to prior range values in the setting of CKD. Electrolytes without significant abnormality. BNP mildly elevated 124, nonspecific in setting of the patient CKD. Lipase marginally above upper limit of normal at 83, nonspecific. TSH within normal limits. UA without evidence of infection. COVID-19, influenza and RSV PCR's were negative. Given the patient's generalized weakness with impaired ability to ambulate from his baseline suspected to be related to dehydration in the setting of suspected gastroenteritis complicated by Parkinsons, patient's and patient agree with plan for admission for further management. Case was discussed with Dr. Gibbs, [facility] hospitalist, who will evaluate the patient for admission. Triage Nursing notes reviewed and agree them. Prior/outside medical records reviewed Vital Signs: reviewed Differential diagnosis: Infection, dehydration, metabolic abnormality, hypo/hyperglycemia, electrolyte disturbance, anemia, hypoxia, cardiac sources, intracerebral event, toxicologic, neurologic, as well as other pathologies. ER treatment provided: See below. Diagnostics interpreted by me: ECG: Suspected atrial fibrillation, 72 bpm, nonspecific ST and T wave abnormality, no overt ST elevation or depression, QTc 440, QRS 90 Cardiac Monitoring: An order for continuous cardiac monitoring was placed and demonstrated suspected atrial fibrillation, 72 bpm, no ectopy Laboratory studies: See below Imaging studies: See below Consultation(s): Case was discussed with Dr. Gibbs, [facility] hospitalist, who will evaluate the patient for admission. HPI: The patient is a pleasant 77-year-old gentleman with a past medical history of Parkinson disease, dementia, BPH, hypertension, hyperlipidemia, CKD, type 2 diabetes, CHF, paroxysmal atrial fibrillation, amatory dysfunction who presents to the emergency department via EMS and then accompanied by his for evaluation of rapid onset of generalized weakness today in the setting of having weakness with decreased appetite and diarrhea for the past several days. Denies any cough or congestion. The reports that he suddenly had weakness when he was walking where he was about to collapse but the room to get to him in time to lower them down softly to the ground. ROS: See above HPI for pertinent positives & negatives. A total of 10 systems reviewed and were otherwise negative. VITALS:See Below PHYSICAL EXAMINATION: GENERAL: Awake, alert, fatigued-appearing, in no distress HENT: Normocephalic, atraumatic. Oropharynx with dry mucous membranes and otherwise unremarkable. EYES: Normal conjunctiva. Sclera non-icteric. NECK: Supple. No nuchal rigidity. FROM. No JVD. RESPIRATORY: Clear to auscultation. CARDIAC: Regular rate, irregular rhythm. Extremities warm and well perfused. Pulses equal. ABDOMEN: Soft, non-distended. No tenderness to palpation. No rebound or guarding. No masses. RECTAL: Deferred. MUSCULOSKELETAL: Chest examination reveals no tenderness. The back is symmetrical on inspection without obvious abnormality. There is no CVA tenderness to palpation. No joint edema. LOWER EXTREMITIES: Calves are equal size bilaterally and non-tender. 1+ BLE edema. Stasis dermatitis. NEURO: No focal sensory or motor deficits noted. Masked fascies. Generalized weakness with 4/5 strength and SILT x 4 extremities. SKIN: No rash or jaundice noted. 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 Diabetes type 2, controlled Diabetic ulcer of right heel associated with diabetes mellitus due to underlying condition, with fat layer exposed Diastolic dysfunction DM type 2 (diabetes mellitus, type 2) MUSTAFA (dyspnea on exertion) Dyslipidemia Encounter for pre-operative examination Fall GERD (gastroesophageal reflux disease) HTN (hypertension) HTN (hypertension) HUNTER (iron deficiency anemia) Lower extremity edema Lumbar spondylosis Moderate mitral regurgitation Orthostatic hypotension (07/2019) Parkinsonism Parkinsonism Peripheral arterial disease Primary parkinsonism Recurrent cellulitis of lower extremity Seasonal allergies Sensorineural hearing loss (SNHL) of both ears Sensorineural hearing loss (SNHL) of both ears Sepsis due to group B Streptococcus (2017) Thoracic aortic aneurysm 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 Father Hypertension, Onset Age: 40 at 40 Mother Hypertension COPD (chronic obstructive pulmonary disease) Diabetes Brother Allergies Asthma Denies family history of Prostate cancer Hearing loss No family history of adverse response to anesthesia No family history of bleeding disorder Heart disease Cancer Stroke Social History Smoking Status: Never smoker Hx Alcohol Use: No Hx Substance Use: No Preferred Language: Spanish Communication Ability: Effective Communication Ability Comment: Hard of hearing Tube Knitter Required: No Beliefs That Will Affect Care: None marital status: Current Living Situation: Spouse Current Living Situation Comment: Lives at home with spouse Feels Safe at Home: Yes Assistive Devices: Oxygen - at Night and Walker Allergies Allergies Allergy/AdvReac Type Severity Reaction Status Date / Time NSAIDS (Non-Steroidal Allergy Intermediate Rash Verified 01/24/23 20:55 Anti-Inflamma YONATAN Inhibitors AdvReac Intermediate Cough Verified 01/24/23 20:55 carbidopa AdvReac Intermediate constipatio Verified 01/24/23 20:55 n levodopa AdvReac Intermediate constipatio Verified 01/24/23 20:55 n Home Meds Home Medications Medication Instructions Recorded Confirmed atorvastatin 40 mg tablet 40 mg PO QAM 09/02/18 11/24/22 amantadine HCl 100 mg capsule 100 mg PO QAM 05/22/20 11/24/22 donepezil 10 mg tablet 10 mg PO HS 05/11/21 11/24/22 bupropion HCl 150 mg 24 hr tablet, 150 mg PO DAILY 06/17/21 11/24/22 extended release fluocinonide 0.05 % topical 1 applic topical DAILY PRN after 06/17/21 11/24/22 solution bathing metformin 500 mg tablet,extended 500 mg PO QAM 06/17/21 11/24/22 release 24 hr dupilumab 300 mg/2 mL subcutaneous 300 mg subcut .every 2 weeks 03/03/22 11/24/22 pen injector ([employer] albuterol sulfate 90 mcg/actuation 2 puff inhalation QID PRN 09/08/22 11/24/22 aerosol inhaler Shortness Of Breath Or Wheezing betamethasone dipropionate 0.05 % 1 applic topical BID PRN Skin 09/08/22 11/24/22 topical cream Irritation ferrous sulfate 325 mg (65 mg 325 mg PO BID 09/08/22 11/24/22 iron) tablet (FeroSul) finasteride 5 mg tablet 5 mg PO QAM 09/08/22 11/24/22 potassium chloride 20 mEq 20 meq PO Q2D 09/08/22 11/24/22 tablet,extended release tamsulosin 0.4 mg capsule 0.4 mg PO QAM 09/08/22 11/24/22 torsemide 20 mg tablet 60 mg PO DAILY 11/28/22 Previous Rx's Medication Instructions Recorded metoprolol succinate 25 mg 25 mg PO QAM #90 tabs 04/19/22 tablet,extended release 24 hr pantoprazole 40 mg tablet,delayed 40 mg PO BID #60 tabs 09/13/22 release spironolactone 25 mg tablet 25 mg PO DAILY #30 tabs 11/10/22 escitalopram oxalate 20 mg tablet 20 mg PO QA #90 tabs 01/23/23 Results & Data (ED) Vital Signs Vital Signs - 24 hr 01/24/23 15:23 01/24/23 15:23 01/24/23 15:23 Temperature 37.2 C 37.2 C Temperature Source Oral Pulse Rate 79 79 Pulse Rate [Apical] Pulse Rhythm [Apical] Pulse Strength [Apical] Respiratory Rate 16 16 16 Respiratory Effort / Characteristics Respiratory Depth Respiratory Pattern Blood Pressure 140/80 Blood Pressure [Left Arm] Blood Pressure Mean 100 Blood Pressure Mean [Left Arm] Blood Pressure Position [Left Arm] Pulse Oximetry 96 96 Oxygen Delivery Method Sepsis Recent Fever Within 48 Hours No Sepsis New/Unexplained Change in Mental Status N/A Sepsis Action Taken by Nursing No Action Required 01/24/23 15:41 01/24/23 18:09 01/24/23 19:41 Temperature Temperature Source Pulse Rate 80 Pulse Rate [Apical] 74 72 Pulse Rhythm [Apical] Regular Pulse Strength [Apical] Normal Respiratory Rate 24 Respiratory Effort / Characteristics Non-Labored Spontaneous Respiratory Depth Normal Respiratory Pattern Regular Blood Pressure Blood Pressure [Left Arm] 153/67 H 167/65 H Blood Pressure Mean Blood Pressure Mean [Left Arm] 95 99 Blood Pressure Position [Left Arm] Lying Pulse Oximetry 94 Oxygen Delivery Method Room Air Sepsis Recent Fever Within 48 Hours Sepsis New/Unexplained Change in Mental Status Sepsis Action Taken by Nursing 01/24/23 20:04 Temperature Temperature Source Pulse Rate 71 Pulse Rate [Apical] Pulse Rhythm [Apical] Pulse Strength [Apical] Respiratory Rate Respiratory Effort / Characteristics Respiratory Depth Respiratory Pattern Blood Pressure Blood Pressure [Left Arm] Blood Pressure Mean Blood Pressure Mean [Left Arm] Blood Pressure Position [Left Arm] Pulse Oximetry Oxygen Delivery Method Sepsis Recent Fever Within 48 Hours Sepsis New/Unexplained Change in Mental Status Sepsis Action Taken by Nursing Laboratory Data Attestation: I reviewed the patient's lab results. 01/24/23 15:37 01/24/23 15:37 Lab Results 01/24/23 01/24/23 01/24/23 Range/Units 15:37 15:37 15:37 WBC 5.33 (4.8-10.8) K/ul RBC 3.06 L (4.70-6.10) M/uL Hgb 10.6 L (14.0-18.0) g/dl Hct 30.5 L (42.0-52.0) % MCV 99.7 (80.0-100.0) fL MCH 34.6 H (25.0-34.0) pg MCHC 34.8 (32.0-36.0) g/dL RDW Std Deviation 51.9 H (36.4-46.3) fL RDW Coeff of Anny 14.3 (11.5-14.5) % Plt Count 121 L (130-400) K/uL MPV 10.1 (9.4-12.4) fL Immature Gran % (Auto) 0.4 % Neut % (Auto) 82.1 % Lymph % (Auto) 7.9 % [place] % (Auto) 9.4 % Eos % (Auto) 0.0 % Baso % (Auto) 0.2 % Neut # (Auto) 4.38 (1.40-6.50) K/uL Lymph # (Auto) 0.42 L (1.2-3.4) K/uL [place] # (Auto) 0.50 (0.11-0.59) K/uL Eos # (Auto) 0.00 (0-0.50) K/uL Baso # (Auto) 0.01 (0-0.2) K/uL Immature Gran # (Auto) 0.02 (0.01-0.20) K/uL Sodium 139 (136-145) mmol/L Potassium 3.5 (3.5-5.1) mmol/L Chloride 100 (98-107) mmol/L Carbon Dioxide 30 (21-32) mmol/L Anion Gap 9 (3-11) BUN 35 H (6-23) mg/dl Creatinine 1.84 H (0.6-1.4) mg/dl Est Cr Clr Drug Dosing 33.6 ml/min Est GFR ( Amer) 39.8 ml/min Est GFR (Non-Af Amer) 34.3 ml/min BUN/Creatinine Ratio 19.0 (10-20) Glucose 149 H (70-99(Fasting)) mg/dl Calcium 9.2 (8.6-10.3) mg/dl Phosphorus 2.2 L (2.5-4.9) mg/dl Magnesium 2.0 (1.7-2.4) mg/dl Total Bilirubin 0.5 (0.2-1.0) mg/dl AST 18 (13-39) U/L ALT 13 (7-52) U/L Alkaline Phosphatase 93 (34-104) U/L Total Creatine Kinase 71 (30-223) U/L Troponin I High Sens 10.1 (0-20) pg/ml B-Natriuretic Peptide 124 H (0-100) pg/ml Total Protein 6.7 (6.0-8.3) gm/dl Albumin 4.3 (3.4-5.0) gm/dl Globulin 2.4 L (2.5-4.0) gm/dl Albumin/Globulin Ratio 1.8 (0.9-2) Lipase 83 H (11-82) U/L TSH (0.300-4.500) uIu/ml Urine Color Urine Appearance (Clear) Urine pH (4.5-7.5) Ur Specific [place] (1.000-1.030) Urine Protein (Negative) Urine Glucose (UA) (Negative) Urine Ketones (Negative) Urine Blood (Negative) Urine Nitrite (Negative) Urine Bilirubin (Negative) Urine Urobilinogen (Negative) Ur Leukocyte Esterase (Negative) SARS-CoV-2 (PCR) (Negative) Influenza Type A (PCR) (Neg) Influenza Type B (PCR) (Neg) RSV (RT-PCR) (Neg) 01/24/23 01/24/23 01/24/23 Range/Units 15:37 17:22 18:15 WBC (4.8-10.8) K/ul RBC (4.70-6.10) M/uL Hgb (14.0-18.0) g/dl Hct (42.0-52.0) % MCV (80.0-100.0) fL MCH (25.0-34.0) pg MCHC (32.0-36.0) g/dL RDW Std Deviation (36.4-46.3) fL RDW Coeff of Anny (11.5-14.5) % Plt Count (130-400) K/uL MPV (9.4-12.4) fL Immature Gran % (Auto) % Neut % (Auto) % Lymph % (Auto) % [place] % (Auto) % Eos % (Auto) % Baso % (Auto) % Neut # (Auto) (1.40-6.50) K/uL Lymph # (Auto) (1.2-3.4) K/uL [place] # (Auto) (0.11-0.59) K/uL Eos # (Auto) (0-0.50) K/uL Baso # (Auto) (0-0.2) K/uL Immature Gran # (Auto) (0.01-0.20) K/uL Sodium (136-145) mmol/L Potassium (3.5-5.1) mmol/L Chloride (98-107) mmol/L Carbon Dioxide (21-32) mmol/L Anion Gap (3-11) BUN (6-23) mg/dl Creatinine (0.6-1.4) mg/dl Est Cr Clr Drug Dosing ml/min Est GFR ( Amer) ml/min Est GFR (Non-Af Amer) ml/min BUN/Creatinine Ratio (10-20) Glucose (70-99(Fasting)) mg/dl Calcium (8.6-10.3) mg/dl Phosphorus (2.5-4.9) mg/dl Magnesium (1.7-2.4) mg/dl Total Bilirubin (0.2-1.0) mg/dl AST (13-39) U/L ALT (7-52) U/L Alkaline Phosphatase (34-104) U/L Total Creatine Kinase (30-223) U/L Troponin I High Sens (0-20) pg/ml B-Natriuretic Peptide (0-100) pg/ml Total Protein (6.0-8.3) gm/dl Albumin (3.4-5.0) gm/dl Globulin (2.5-4.0) gm/dl Albumin/Globulin Ratio (0.9-2) Lipase (11-82) U/L TSH 3.307 (0.300-4.500) uIu/ml Urine Color Yellow Urine Appearance Clear (Clear) Urine pH 5.5 (4.5-7.5) Ur Specific [place] 1.008 (1.000-1.030) Urine Protein Negative (Negative) Urine Glucose (UA) Negative (Negative) Urine Ketones Negative (Negative) Urine Blood Negative (Negative) Urine Nitrite Negative (Negative) Urine Bilirubin Negative (Negative) Urine Urobilinogen Negative (Negative) Ur Leukocyte Esterase Negative (Negative) SARS-CoV-2 (PCR) NEGATIVE (Negative) Influenza Type A (PCR) Negative (Neg) Influenza Type B (PCR) Negative (Neg) RSV (RT-PCR) Negative (Neg) Administered Medications Discontinued Medications Sodium Chloride (Nss) 500 mls @ 999 mls/hr IV .Q31M ONE Stop: 01/24/23 17:52 Last Infusion: 01/24/23 18:51 Dose: 0 mls/hr Documented By: Admin: 01/24/23 18:18 Dose: 999 mls/hr Documented By: OL Famotidine (Pepcid 20mg Iv Push) 20 mg in 5 mls @ 2.5 mls/min IV NOW STA Stop: 01/24/23 18:38 Last Admin: 01/24/23 19:44 Dose: Not Given Documented By: BEZ Imaging Data Radiologist's Impression: Chest X-Ray 01/24/23 16:33 XR chest 1V portable HISTORY: 77 years-old Male dizziness acute dizziness COMPARISON: Chest radiograph 09/08/2022 TECHNIQUE: AP view of the chest FINDINGS: Cardiac silhouette is enlarged. Prior median sternotomy with CABG. Unchanged right hemidiaphragmatic elevation. No pneumothorax, pleural effusion, airspace consolidation or pulmonary edema. Degenerative changes of the shoulders and spine. Healed chronic left-sided rib fractures. IMPRESSION: Cardiomegaly without acute process. ACT 112: Negative or not required by law. The above report was generated using voice recognition software. It may contain grammatical, syntax or spelling errors. Electronically signed by: David Stewart M.D. 01/24/2023 4:51 PM Discharge Plan Visit Data Chief Complaint: Weakness Stated Complaint: ILL FOR SEVERAL DAYS, WEAK, FELL ED Provider: Babar Wilburn Discharge Problem: Primary parkinsonism, Dementia associated with Parkinson's disease, Ambulatory dysfunction, Diarrhea, Generalized weakness, CKD (chronic kidney disease) stage 3, GFR 30-59 ml/min Forms Stand Alone Forms: [facility] [place] Prescriptions Prescriptions: No Action metoprolol succinate 25 mg tablet extended release 24 hr 25 mg PO QAM Qty: 90 3RF torsemide 20 mg tablet 40 mg PO DAILY Rx Instructions: PER GMG-40 MG, PER PT--60 MG DAILY escitalopram oxalate 20 mg tablet 20 mg PO QAM Qty: 90 3RF amantadine HCl 100 mg capsule 100 mg PO QAM Rx Instructions: ordered bid but takes only in morning Dupixent Pen 300 mg/2 mL pen injector 300 mg subcut .every 2 weeks Rx Instructions: Every other Monday- atorvastatin 40 mg Tablet 40 mg PO QAM tamsulosin 0.4 mg capsule 0.4 mg PO QAM ferrous sulfate [FeroSul] 325 mg (65 mg iron) Tablet 325 mg PO BID albuterol sulfate 90 mcg/actuation HFA aerosol inhaler 2 puff INHALATION QID PRN (Reason: Shortness Of Breath Or Wheezing) betamethasone dipropionate 0.05 % Cream 1 applic TOPICAL BID PRN (Reason: Skin Irritation) Rx Instructions: apply to trunk rash twice daily as needed donepezil 5 mg Tablet 10 mg PO HS Rx Instructions: PER GMG--5 MG HS, PER PT--10 MG HS. cyanocobalamin (vitamin B-12) [Vitamin B-12] 1,000 mcg Tablet 2,000 mcg PO DAILY cephalexin 500 mg Tablet 500 mg PO BID dutasteride 0.5 mg Capsule 0.5 mg PO DAILY pantoprazole 40 mg tablet,delayed release (DR/EC) 40 mg PO DAILY metformin 500 mg tablet extended release 24 hr 500 mg PO QAM bupropion HCl 150 mg tablet extended release 24 hr 150 mg PO DAILY fluocinonide 0.05 % solution 1 applic TOPICAL DAILY PRN (Reason: after bathing) Rx Instructions: apply to scalp Referrals Referrals: Michael Hinton MD [Primary Care Provider] -
--- NOTE | 2023-01-24 22:28 | XRay Report ---
KUB CLINICAL HISTORY: Generalized abdominal pain. Diarrhea. FINDINGS: 2 AP, portable, supine abdominal radiographs are compared to study dated 05/02/2022 and akiko elated with abdominal CT dated 09/08/2022. There is a nonobstructed abdominal bowel gas pattern. No e vidence of intraperitoneal free air is seen on these supine images. There are no abnormal abdominal c alcifications. The skeletal structures are osteopenic and appear intact. There is advanced lumbosacra l spondylosis. A right hip arthroplasty is in place. IMPRESSION: No acute abnormality is identified. Electronically signed by: Gonzales Alvarado M.D. 01/24/2023 10:27 PM
[2023-01-25] MEDS ORDERED: DEXTROSE 50% 50 ML SYRINGE IV PRN (00:18)
[2023-01-25] MEDS ORDERED: ALBUTEROL HFA 8 GM INHALER INH PRN (00:18)
[2023-01-25] MEDS ORDERED: GLUCOSE 40% GEL 15 GM TUBE PO PRN (00:18)
[2023-01-25] MEDS ORDERED: NITROGLYCERIN SL 0.4 MG/TAB TAB SL PRN (00:18)
[2023-01-25] MEDS ORDERED: ACETAMINOPHEN 325 MG TAB PO PRN (00:18)
[2023-01-25] MEDS ORDERED: GLUCOSE 10 TAB/TUBE PO PRN (00:18)
[2023-01-25] MEDS ORDERED: CARBOHYDRATES FOR HYPOGLYCEMIA PO PRN (00:18)
[2023-01-25] MEDS ORDERED: GLUCAGON FOR INJ 1 MG VIAL SQ PRN (00:18)
--- NOTE | 2023-01-25 00:41 | History and Physical Report ---
DATE OF ADMISSION: 01/24/2023. CHIEF COMPLAINT: Weakness. 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 The patient is somewhat hard of hearing. is helping with H and P. As per the , the last 2 days he is having diarrhea and getting weak. It is difficult to get him up and he is having some imbalance and weakness and today in the bathroom, he called the to help. When went, he was holding on the wall and he slowly dropped down, did not hit his head, no loss of consciousness, but he was not able to get up. She called the neighbor, they could not get him up. They called EMS and they also had difficulty getting him up. That is when they decided to bring him to the hospital. He is having diarrhea for last 2 days. Denies any abdominal pain. No nausea or vomiting. Not eating much for the last couple of days. No fevers. He has lot of cough and he is bringing some phlegm with cough and also he has some sore throat. He is having pain while eating, that is the reason he is not eating much. Denies any headache. No chest pain, no shortness of breath. Has chronic back pain. Has some mild abdominal discomfort. His stools are black because he takes iron. Hemodynamics are stable. ALLERGIES: NSAIDS, YONATAN INHIBITORS, CARBIDOPA/LEVODOPA. PAST MEDICAL HISTORY: As mentioned above. PAST SURGICAL HISTORY: Carpal tunnel surgery, colonoscopy, EGDs, hammertoe surgery, right ankle fusion, C3-C6 laminectomy, cataract surgery, tonsillectomy and adenoidectomy, strabismus surgery, revise upper eyelid, right hip replacement. MEDICATIONS: The patient is on albuterol 2 puffs inhalation q.i.d. p.r.n., amantadine 100 mg p.o. a.m., atorvastatin 40 mg p.o. daily, bupropion 150 mg p.o. daily, Keflex 500 mg p.o. b.i.d., cyanocobalamin 2000 mcg p.o. daily, donepezil 10 mg p.o. at bedtime, dupilumab subcutaneous every 2 weeks, dutasteride 0.5 mg p.o. daily, Lexapro 20 mg p.o. daily, ferrous sulfate 325 mg p.o. b.i.d., metformin 500 mg p.o. a.m., metoprolol succinate 25 mg p.o. daily, Protonix 40 mg p.o. daily, Flomax 0.4 mg p.o. daily, torsemide 40 mg p.o. daily. FAMILY HISTORY: Significant for daughter has asthma; mother had CAD at age of 72, COPD; father had stroke, hypertension; daughter has bipolar disorder. SOCIAL HISTORY: , no smoking, no alcohol, no drug use. Uses medical marijuana. REVIEW OF SYSTEMS: As per HPI. Rest of the review of systems is negative. PHYSICAL EXAMINATION: GENERAL: The patient is old and somewhat hard of hearing, not in acute distress. VITAL SIGNS: Temperature 37.2, pulse 75, respiratory rate 20, blood pressure 160/74, oxygen 94% on room air. HEENT: Pupils equal, round, and reactive to light. Oral mucosa moist. No erythematous changes seen in the pharynx region. NECK: No JVD. No neck masses. CARDIOVASCULAR: S1 and S2 heard. Regular rate and rhythm. No murmur, no gallop. RESPIRATORY SYSTEM: Normal AP diameter. No accessory muscle use. No wheezing, no crackles. ABDOMEN: Soft, bowel sounds present, nontender, no distention. CENTRAL NERVOUS SYSTEM: Alert and awake. No facial droop. Speech is okay. Obeys simple commands. Moves extremities. EXTREMITIES: Bilateral lower extremity chronic edema seen with some mild erythematous changes. LABORATORY DATA: WBC 5.3, hemoglobin 10.6, hematocrit 30.5, platelets 121. Sodium is 139, potassium 3.5, chloride 100, CO2 of 30, BUN 35, creatinine 1.8, serum glucose 149, calcium 9.2, phosphorus 2.2, magnesium 2, total bilirubin 0.5, AST 18, ALT 13, alkaline phosphatase 93, total creatine kinase 71. Troponin I high sensitivity 10.1. BNP 124, lipase 83, TSH 3.3. Urinalysis negative. SARS-CoV-2 rapid test negative. Influenza A and B PCR negative. RSV PCR negative. KUB results are pending. IMAGING DATA: Chest x-ray, cardiomegaly without acute process. EKG: Undetermined rhythm at a rate of 72. Nonspecific ST abnormalities. ASSESSMENT AND PLAN: This is a 77-year-old male who presents with ongoing diarrhea and weakness and some near syncope. 1. Weakness: Near syncope, he almost slowly dropped down in the bathroom. Will check orthostatics. Will keep him on gentle fluids. Monitor in the tele floor. Will get an echo. If any concerns, will consult cardiology.PT/OT 2. Ongoing diarrhea: Possibly causing these symptoms. ER ordered a C. diff and stool for PCR, which will be followed. Will place on clear liquid diet and will place on normal saline at 75 mL per hour for 2 liters. 3. History of coronary artery disease: Status post coronary artery bypass grafting. On statin, metoprolol. 4. He is complaining of sore throat and because of that is not eating: Will get a throat culture. Empirically starting on Rocephin. 5. Possible cellulitis in the lower extremities: On Rocephin. Will follow the response. Will also get Doppler to rule out any DVT. 6. History of chronic diastolic congestive heart failure: Mitral regurgitation. On metoprolol succinate. He is on torsemide 40 mg daily. As per , his leg swelling has improved. We are currently holding his torsemide because of diarrhea. Getting gentle fluids, monitor for any volume overload. 7. Chronic kidney disease stage III: Presently with creatinine of 1.84, close to baseline. Holding the torsemide. Getting gentle fluids. Follow the repeat labs. 8. History of Parkinson's and dementia: On amantadine and donepezil. Will monitor for any delirium. 9. History of benign prostatic hypertrophy: On dutasteride and Flomax. Will monitor for any retention. 10. Gastroesophageal reflux disease: On Protonix. 11. Diabetes: Hold the metformin. Placed on insulin sliding scale. Follow the blood sugars, follow HbA1c levels. 12. History of paroxysmal atrial fibrillation: Diagnosed in hospitalization of August 2022. Initially was on both aspirin for CAD and Eliquis for AFib. However, both are held due to issues with anemia and received multiple iron transfusions because his hemoglobin at one point was 4.3 upon hospitalization. Will monitor the heart rates. Follow up with Cardiology. 13. History of frequent PACs, on metoprolol. will follow electrolytes.. 14. Deep venous thrombosis prophylaxis: Will place on heparin subcutaneous. Will monitor his platelets. DISPOSITION: Closely monitor in the med tele. PT/OT prior to discharge. Social service to help with discharge planning. Job ID: [id number] JEANMARIE
[2023-01-25] MEDS ORDERED: FLUOCINONIDE 0.05% OINT 15 GM TUBE EXT PRN (00:45)
[2023-01-25] MEDS ORDERED: BETAMETHASONE DIP AUG (DIPROLENE) 0.05% CR 15 GM TUBE EXT PRN (00:45)
[2023-01-25] MEDS ORDERED: cefTRIAXone SODIUM 2,000 MG in DEXTROSE 5% 50 ML IV SCH (01:00)
[2023-01-25] MEDS: SODIUM CHLORIDE 0.9% 1000ML 1,000 ML IV SCH ×2 (01:12→13:24)
[2023-01-25 04:55] LABS: Adenovirus F 40/41 PCR Not Detected (NotDetected); Astrovirus PCR Not Detected (NotDetected); Campylobacter PCR Not Detected (NotDetected); Cryptosporidium PCR Not Detected (NotDetected); Cyclospora cayetanensis PCR Not Detected (NotDetected); Entamoeba histolytica PCR Not Detected (NotDetected); Enteroaggregative E.coli(EAEC) Not Detected (NotDetected); Enteropathogenic E.coli (EPEC) Not Detected (NotDetected); Enterotoxigenic E.coli (ETEC) Not Detected (NotDetected); Giardia lamblia PCR Not Detected (NotDetected); Norovirus GI/GII PCR Not Detected (NotDetected); Plesiomonas shigelloides PCR Not Detected (NotDetected); Rotavirus A PCR Not Detected (NotDetected); Salmonella PCR Not Detected (NotDetected); Sapovirus PCR Not Detected (NotDetected); Shiga-like Toxin E.coli (STEC) Not Detected (NotDetected); Shigella/Enteroinvasive E.coli Not Detected (NotDetected); Vibrio cholerae PCR Not Detected (NotDetected); Vibrio species PCR Not Detected (NotDetected); Yersinia enterocolitica PCR Not Detected (NotDetected)
[2023-01-25 06:10] LABS: BUN Creatinine Ratio 17.8 (10-20); Calcium 8.6 mg/dl (8.6-10.3); Creatinine Clr Calc Pharmacy 37.5 ml/min; Est GFR (African American) 44.1 ml/min; Est GFR (Non-African American) 38.1 ml/min; Potassium 3.6 mmol/L (3.5-5.1)
[2023-01-25 06:37] LABS: Basophils # (auto) 0.01 K/uL (0-0.2); Basophils % (auto) 0.2 %; Hematocrit (blood only) 27.3 % (42.0-52.0); Hemoglobin 9.3 g/dl (14.0-18.0); Immature Granulocytes # (auto) 0.02 K/uL (0.01-0.20); Immature Granulocytes % (auto) 0.4 %; Lymphocytes # (auto) 0.65 K/uL (1.2-3.4); Lymphocytes % (auto) 12.6 %; Mean Corpuscular Hemoglobin 34.3 pg (25.0-34.0); Mean Corpuscular Hgb Conc 34.1 g/dL (32.0-36.0); Mean Corpuscular Volume 100.7 fL (80.0-100.0); Mean Platelet Volume 9.3 fL (9.4-12.4); Monocytes # (auto) 0.69 K/uL (0.11-0.59); Monocytes % (auto) 13.4 %; Neutrophils # (auto) 3.77 K/uL (1.40-6.50); Neutrophils % (auto) 73.4 %; Platelet Count 109 K/uL (130-400); RDW Coefficient of Variation 14.1 % (11.5-14.5); RDW Standard Deviation 51.7 fL (36.4-46.3); Red Blood Count 2.71 M/uL (4.70-6.10); White Blood Count 5.14 K/ul (4.8-10.8)
--- NOTE | 2023-01-25 07:11 | Ultrasound Report ---
BILATERAL LOWER EXTREMITY VENOUS DOPPLER CLINICAL HISTORY: lower ext edema. dvt? COMPARISON STUDY: Bilateral lower extremity venous Doppler ultrasound September 02, 2018 TECHNIQUE: Sonography of the deep venous system of the bilateral lower extremities was performed. Co mpression and augmentation were evaluated. FINDINGS: The bilateral common femoral, superficial femoral and popliteal veins were compressible. A ugmentation was normal. Flow was shown within the deep calf vessels. Bilateral calf edema was noted. IMPRESSION: No evidence of deep venous thrombus within the bilateral lower extremities. ACT 112: Negative or not required by law. Electronically signed by: Calixto Bai M.D. 01/25/2023 7:09 AM
[2023-01-25] MEDS: METOPROLOL SUCC 25MG EXT REL TAB PO SCH (08:36)
[2023-01-25] MEDS: ATORVASTATIN 40 MG TAB PO SCH (08:36)
[2023-01-25] MEDS: FERROUS SULFATE 325 MG TAB PO SCH ×2 (08:36→16:50)
[2023-01-25] MEDS: AMANTADINE HCL 100 MG CAPSULE PO SCH (08:36)
[2023-01-25] MEDS: TAMSULOSIN HCL 0.4 MG CAP PO SCH (08:37)
[2023-01-25] MEDS: PANTOprazole 40 MG TAB PO SCH (08:37)
[2023-01-25] MEDS: buPROPion XL 150 MG TABCR PO SCH (08:37)
[2023-01-25] MEDS: CYANOCOBALAMIN (B-12) 500 MCG TABLET PO SCH (08:37)
[2023-01-25] MEDS: ESCITALOPRAM OXALATE 20 MG TAB PO SCH (08:38)
[2023-01-25] MEDS: AVODART~ORDER AWAITING ACTION SCH ×3 (08:38→23:17)
[2023-01-25] MEDS: HEPARIN SOD 5,000 UNIT/0.5 ML VIAL SQ SCH ×2 (08:38→20:04)
--- NOTE | 2023-01-25 08:42 | Electrocardiogram Report ---
Test Reason : Blood Pressure : / mmHG Vent. Rate : 072 BPM Atrial Rate : 070 BPM P-R Int : 184 ms QRS Dur : 090 ms QT Int : 402 ms P-R-T Axes : -69 -41 082 degrees QTc Int : 440 ms Poor data quality, interpretation may be adversely affected Sinus rhythm Left axis deviation Diffuse Minor Nonspecific ST and T wave abnormality Abnormal ECG When compared with ECG of 12-SEP-2022 19:55, HR has decreased by 49 bpm Atrial fibrillation no longer present Confirmed by Michael Stanton ([id number]) on 01/25/2023 8:41:45 AM Referred By: REFERRED SELF Confirmed By:Michael Stanton
[2023-01-25] MEDS: ADVANCED PROBIOTIC 1250 MG CAPSULE PO SCH (10:08)
[2023-01-25] MEDS: INSULIN ASPART PER UNIT CHARGE SC SCH ×4 (10:35→21:59)
[2023-01-25 11:33] LABS: Bordetella parapertussis PCR Not Detected (NotDetected); Bordetella pertussis PCR Not Detected (NotDetected); Chlamydia pneumoniae PCR Not Detected (NotDetected); Coronavirus 229E PCR Not Detected (NotDetected); Coronavirus CoV-2 (COVID19)PCR Not Detected (NotDetected); Coronavirus HKU1 PCR Not Detected (NotDetected); Coronavirus NL63 PCR Not Detected (NotDetected); Coronavirus OC43PCR Not Detected (NotDetected); Human Metapneumovirus PCR Not Detected (NotDetected); Influenza A PCR Not Detected (NotDetected); Influenza B PCR Not Detected (NotDetected); Mycoplasma pneumoniae PCR Not Detected (NotDetected); Parainfluenza Virus 1 PCR Not Detected (NotDetected); Parainfluenza Virus 2 PCR Not Detected (NotDetected); Parainfluenza Virus 3 PCR Not Detected (NotDetected); Parainfluenza Virus 4 PCR Not Detected (NotDetected); Respiratory Syncytial VirusPCR Not Detected (NotDetected); Rhinovirus/Enterovirus PCR Not Detected (NotDetected)
[2023-01-25 12:05] LABS: Adenovirus PCR DETECTED (NotDetected)
[2023-01-25 12:16] LABS: Estimated Average Glucose 117 mg/dl; Hemoglobin A1C 5.7 % (4.5-5.6)
--- NOTE | 2023-01-25 18:23 | Hospitalist Progress Note ---
Date of Service January 25, 2023 Assessment & Plan (1) Diarrhea: Plan: Patient is a 77 yr male who presents with ongoing diarrhea and weakness and some near syncope. Adenovirus infection Diarrhea, generalized weakness, near syncope secondary to above Dehydration -KUB:No acute abnormality is identified. -CXR:Cardiomegaly without acute process. -Stool studies negative -BioFire positive for Adenovirus Conservative management Empirically started on doxycycline Check procalcitonin, orthostatics Dysphagia Sore throat Advance diet as tolerated Speech therapy evaluation Aspiration precautions Throat culture pending Chronic Lower extremity edema Likely chronic venous stasis Less likely cellulitis Venous Doppler:No evidence of deep venous thrombus within the bilateral lower extremities. Monitor volume status CAD S/P coronary artery bypass grafting Continue statin, metoprolol Chronic diastolic congestive heart failure Mitral regurgitation. Continue metoprolol Resume torsemide as able Monitor volume status CKD III Cr near baseline Monitor renal function Avoid nephrotoxic agents as able Parkinson's disease Dementia On amantadine and donepezil BPH On dutasteride and Flomax GERD on PPI DM II HbA1C 5.7 Hold metformin Continue insulin while hospitalized Monitor BGs Paroxysmal atrial fibrillation Diagnosed Aug 2022 Previously on aspirin, Eliquis. Due to significant anemia, multiple transfusions-- they were discontinued Follows with cardiology as outpatient H/O PACs on metoprolol DVT Px: Heparin SQ Code Status Full Code Admission and Anticipated Discharge Date Admission Date: January 24, 2023 Subjective Patient is seen and examined at bedside States having sore throat, trouble swallowing secondary to above Also reports diarrhea Denies chest pain, dyspnea, nausea, vomiting, abdominal pain No other complaints Review of Systems Review of Systems: All systems reviewed & are unremarkable except as noted in Subjective Physical Exam Physical Exam: Physical Exam: Vitals signs as noted above General Appearance:Moderately built and nourished, no apparent distress Head: normocephalic, Atraumatic Eyes: normal inspection, EOMI Neck: supple, Trachea midline Respiratory/Chest: Normal breath sounds, CTA, No accessory muscle use Cardiovascular: S1, S2, + murmur Abdomen/GI:Soft, Non tender, Bowel sounds present Extremities/Musculoskeletal:normal inspection, chronic venous stasis changes, edema Neurologic/Psych:AAOX3, grossly no focal neurological deficits, + hearing impairment Skin: normal color, warm Results & Data Results & Data Vital Signs (Past 12 Hours) Vital Signs Temp Pulse Pulse Resp BP BP Pulse Ox 01/25/23 16:04 72 01/25/23 15:59 01/25/23 15:34 37.0 C 72 20 126/72 96 01/25/23 14:00 75 29 H 01/25/23 14:00 129/73 01/25/23 13:16 83 30 H 148/58 H 98 01/25/23 08:44 01/25/23 08:39 72 22 155/82 H 93 01/25/23 08:10 74 35 H 01/25/23 08:00 76 31 H 148/68 H 97 01/25/23 07:35 74 23 145/69 H 96 01/25/23 07:00 68 29 H 147/60 H 01/25/23 06:30 75 20 151/63 H 01/25/23 07:22 74 O2 Del Method O2 Flow Rate 01/25/23 16:04 01/25/23 15:59 Room Air 01/25/23 15:34 Room Air 01/25/23 14:00 01/25/23 14:00 01/25/23 13:16 Nasal Cannula 2 01/25/23 08:44 Nasal Cannula 2 01/25/23 08:39 Nasal Cannula 2 01/25/23 08:10 01/25/23 08:00 01/25/23 07:35 01/25/23 07:00 01/25/23 06:30 01/25/23 07:22 Laboratory Results Short CBC 01/25/23 Range/Units 05:32 WBC 5.14 (4.8-10.8) K/ul Hgb 9.3 L (14.0-18.0) g/dl Hct 27.3 L (42.0-52.0) % Plt Count 109 L (130-400) K/uL BMP 01/25/23 05:32 Sodium 142 Potassium 3.6 Chloride 104 Carbon Dioxide 30 BUN 30 H Creatinine 1.69 H Glucose 133 H Calcium 8.6 Cardiac Enzymes 01/24/23 Range/Units 15:37 Total Creatine Kinase 71 (30-223) U/L
[2023-01-25] MEDS: DOXYCYCLINE HYCLATE 100 MG CAP PO SCH (20:04)
[2023-01-25] MEDS: DONEPEZIL HCL 10 MG TAB PO SCH (20:04)
[2023-01-26] MEDS: AVODART~ORDER AWAITING ACTION SCH ×2 (07:26→13:41)
[2023-01-26] MEDS: INSULIN ASPART PER UNIT CHARGE SC SCH ×4 (08:27→21:28)
[2023-01-26] MEDS: TAMSULOSIN HCL 0.4 MG CAP PO SCH (08:28)
[2023-01-26] MEDS: DOXYCYCLINE HYCLATE 100 MG CAP PO SCH ×2 (08:28→21:11)
[2023-01-26] MEDS: ADVANCED PROBIOTIC 1250 MG CAPSULE PO SCH (08:28)
[2023-01-26] MEDS: FERROUS SULFATE 325 MG TAB PO SCH ×2 (08:28→17:13)
[2023-01-26] MEDS: ESCITALOPRAM OXALATE 20 MG TAB PO SCH (08:28)
[2023-01-26] MEDS: HEPARIN SOD 5,000 UNIT/0.5 ML VIAL SQ SCH ×2 (08:29→21:13)
[2023-01-26] MEDS: AMANTADINE HCL 100 MG CAPSULE PO SCH (08:29)
[2023-01-26] MEDS: buPROPion XL 150 MG TABCR PO SCH (08:29)
[2023-01-26] MEDS: CYANOCOBALAMIN (B-12) 500 MCG TABLET PO SCH (08:29)
[2023-01-26] MEDS: ATORVASTATIN 40 MG TAB PO SCH (08:29)
[2023-01-26] MEDS: METOPROLOL SUCC 25MG EXT REL TAB PO SCH (08:29)
[2023-01-26] MEDS: PANTOprazole 40 MG TAB PO SCH (08:29)
[2023-01-26 08:49] LABS: BUN Creatinine Ratio 14.9 (10-20); Calcium 8.7 mg/dl (8.6-10.3); Creatinine Clr Calc Pharmacy 43.6 ml/min; Est GFR (African American) 54.9 ml/min; Est GFR (Non-African American) 47.4 ml/min; Potassium 3.3 mmol/L (3.5-5.1)
[2023-01-26 08:59] LABS: Hematocrit (blood only) 26.9 % (42.0-52.0); Hemoglobin 8.9 g/dl (14.0-18.0); Mean Corpuscular Hemoglobin 34.2 pg (25.0-34.0); Mean Corpuscular Hgb Conc 33.1 g/dL (32.0-36.0); Mean Corpuscular Volume 103.5 fL (80.0-100.0); Mean Platelet Volume 9.8 fL (9.4-12.4); Platelet Count 97 K/uL (130-400); Platelet Estimate Decreased (Normal); RDW Standard Deviation 52.6 fL (36.4-46.3); White Blood Count 4.47 K/ul (4.8-10.8)
[2023-01-26] MEDS ORDERED: POTASSIUM CHLORIDE CRTAB 20 MEQ TABCR PO ONE (09:22)
[2023-01-26] MEDS ORDERED: POTASSIUM CHLORIDE 20 MEQ/15 ML UDC PO ONE (09:29)
--- NOTE | 2023-01-26 16:35 | Hospitalist Progress Note ---
Date of Service January 26, 2023 Assessment & Plan (1) Diarrhea: Plan: Patient is a 77 yr male who presents with ongoing diarrhea and weakness and some near syncope. Adenovirus infection Diarrhea, generalized weakness, near syncope secondary to above Dehydration -Normal procalcitonin -KUB:No acute abnormality is identified. -CXR:Cardiomegaly without acute process. -Stool studies negative -BioFire positive for Adenovirus Conservative management Empirically started on doxycycline for possible bronchitis IV fluids as needed Dysphagia Sore throat Speech therapy evaluation Aspiration precautions Throat culture --moderate normal kris Advanced to minced and moist diet Chronic Lower extremity edema Likely chronic venous stasis Less likely cellulitis Venous Doppler:No evidence of deep venous thrombus within the bilateral lower extremities. Monitor volume status CAD S/P coronary artery bypass grafting Continue statin, metoprolol Chronic diastolic congestive heart failure Mitral regurgitation. Continue metoprolol Resume torsemide as able Monitor volume status CKD III Cr near baseline Monitor renal function Avoid nephrotoxic agents as able Parkinson's disease Dementia On amantadine and donepezil BPH On dutasteride and Flomax GERD on PPI DM II HbA1C 5.7 Hold metformin Continue insulin while hospitalized Monitor BGs Paroxysmal atrial fibrillation Diagnosed Aug 2022 Previously on aspirin, Eliquis. Due to significant anemia, multiple transfusions-- they were discontinued Follows with cardiology as outpatient H/O PACs on metoprolol DVT Px: Heparin SQ Code Status Full Code Admission and Anticipated Discharge Date Admission Date: January 24, 2023 Subjective Patient is seen and examined at bedside Less cough, sore throat today Had speech therapy evaluation Still has significant diarrhea Denies chest pain, dyspnea, nausea, vomiting, abdominal pain No other complaints Review of Systems Review of Systems: All systems reviewed & are unremarkable except as noted in Subjective Physical Exam Physical Exam: Physical Exam: Vitals signs as noted above General Appearance:Moderately built and nourished, no apparent distress Head: normocephalic, Atraumatic Eyes: normal inspection, EOMI Neck: supple, Trachea midline Respiratory/Chest: Normal breath sounds, CTA, No accessory muscle use Cardiovascular: S1, S2, + murmur Abdomen/GI:Soft, Non tender, Bowel sounds present Extremities/Musculoskeletal:normal inspection, chronic venous stasis changes, edema Neurologic/Psych:AAOX3, grossly no focal neurological deficits, + hearing impairment Skin: normal color, warm Results & Data Results & Data Vital Signs (Past 12 Hours) Vital Signs Temp Pulse Pulse Pulse Resp BP Pulse Ox 01/26/23 13:56 75 01/26/23 12:27 37.0 C 75 17 154/68 H 96 01/26/23 10:35 105 H 01/26/23 07:41 01/26/23 06:30 88 O2 Del Method 01/26/23 13:56 01/26/23 12:27 Room Air 01/26/23 10:35 01/26/23 07:41 Room Air 01/26/23 06:30 Laboratory Results Short CBC 01/26/23 Range/Units 07:54 WBC 4.47 L (4.8-10.8) K/ul Hgb 8.9 L (14.0-18.0) g/dl Hct 26.9 L (42.0-52.0) % Plt Count 97 L (130-400) K/uL BMP 01/26/23 07:54 Sodium 145 Potassium 3.3 L Chloride 111 H Carbon Dioxide 28 BUN 21 Creatinine 1.41 H Glucose 146 H Calcium 8.7
[2023-01-26] MEDS ORDERED: PSYLLIUM or GUAR GUM FIBER POWDER PACKET PO SCH (16:45)
[2023-01-26] MEDS: DONEPEZIL HCL 10 MG TAB PO SCH (21:11)
[2023-01-27] MEDS ORDERED: LOPERAMIDE HCL 2 MG CAP PO PRN (00:33)
--- NOTE | 2023-01-27 00:33 | Communication Note ---
Date of Service: January 27, 2023 Patient with frequent episodes of diarrhea causing "excoriation of bottom" Stool work-up negative AP Viral enteritis Adenovirus infection Imodium as needed Hold psyllium and Aricept until diarrhea resolved.
[2023-01-27] MEDS: AVODART~ORDER AWAITING ACTION SCH ×3 (00:50→16:04)
[2023-01-27 06:04] LABS: Hematocrit (blood only) 26.3 % (42.0-52.0); Hemoglobin 8.8 g/dl (14.0-18.0); Mean Corpuscular Hemoglobin 34.2 pg (25.0-34.0); Mean Corpuscular Hgb Conc 33.5 g/dL (32.0-36.0); Mean Corpuscular Volume 102.3 fL (80.0-100.0); Mean Platelet Volume 9.7 fL (9.4-12.4); Platelet Count 87 K/uL (130-400); RDW Coefficient of Variation 13.9 % (11.5-14.5); RDW Standard Deviation 52.2 fL (36.4-46.3); Red Blood Count 2.57 M/uL (4.70-6.10); White Blood Count 3.56 K/ul (4.8-10.8)
[2023-01-27 06:18] LABS: BUN Creatinine Ratio 13.2 (10-20); Calcium 8.7 mg/dl (8.6-10.3); Creatinine Clr Calc Pharmacy 42.5 ml/min; Est GFR (African American) 53.5 ml/min; Est GFR (Non-African American) 46.2 ml/min; Potassium 3.6 mmol/L (3.5-5.1)
[2023-01-27] MEDS: PANTOprazole 40 MG TAB PO SCH (08:04)
[2023-01-27] MEDS: ATORVASTATIN 40 MG TAB PO SCH (08:04)
[2023-01-27] MEDS: DOXYCYCLINE HYCLATE 100 MG CAP PO SCH ×2 (08:04→20:54)
[2023-01-27] MEDS: ESCITALOPRAM OXALATE 20 MG TAB PO SCH (08:04)
[2023-01-27] MEDS: AMANTADINE HCL 100 MG CAPSULE PO SCH (08:05)
[2023-01-27] MEDS: FERROUS SULFATE 325 MG TAB PO SCH ×2 (08:05→17:21)
[2023-01-27] MEDS: ADVANCED PROBIOTIC 1250 MG CAPSULE PO SCH ×2 (08:05→08:17)
[2023-01-27] MEDS: buPROPion XL 150 MG TABCR PO SCH (08:05)
[2023-01-27] MEDS: TAMSULOSIN HCL 0.4 MG CAP PO SCH (08:05)
[2023-01-27] MEDS: METOPROLOL SUCC 25MG EXT REL TAB PO SCH (08:06)
[2023-01-27] MEDS: CYANOCOBALAMIN (B-12) 500 MCG TABLET PO SCH (08:06)
[2023-01-27] MEDS: HEPARIN SOD 5,000 UNIT/0.5 ML VIAL SQ SCH ×2 (08:07→20:54)
[2023-01-27] MEDS: INSULIN ASPART PER UNIT CHARGE SC SCH ×4 (08:14→22:14)
[2023-01-27 12:10] LABS: Ferritin 330.9 ng/ml (8-388)
[2023-01-27] MEDS ORDERED: IRON SUCROSE 200 MG in 0.9 % SODIUM CHLORIDE 100 ML IV ONE (13:00)
--- NOTE | 2023-01-27 16:29 | Hospitalist Progress Note ---
Date of Service January 27, 2023 Assessment & Plan (1) Diarrhea: Plan: Patient is a 77 yr male who presents with ongoing diarrhea and weakness and some near syncope. Adenovirus infection Diarrhea, generalized weakness, near syncope secondary to above Dehydration -Normal procalcitonin -KUB:No acute abnormality is identified. -CXR:Cardiomegaly without acute process. -Stool studies negative -BioFire positive for Adenovirus Conservative management Empirically started on doxycycline for possible bronchitis IV fluids as needed Likely plan to be discharged home tomorrow Dysphagia Sore throat Speech therapy evaluation Aspiration precautions Throat culture --moderate normal kris Tolerating minced and moist diet Chronic Lower extremity edema Likely chronic venous stasis Less likely cellulitis Venous Doppler:No evidence of deep venous thrombus within the bilateral lower extremities. Monitor volume status Iron deficiency anemia Receives IV iron as outpatient Will five 1 dose IV venofer today CAD S/P coronary artery bypass grafting Continue statin, metoprolol Chronic diastolic congestive heart failure Mitral regurgitation. Continue metoprolol Resume torsemide as able Monitor volume status CKD III Cr near baseline Monitor renal function Avoid nephrotoxic agents as able Parkinson's disease Dementia On amantadine and donepezil BPH On dutasteride and Flomax GERD on PPI DM II HbA1C 5.7 Hold metformin Continue insulin while hospitalized Monitor BGs Paroxysmal atrial fibrillation Diagnosed Aug 2022 Previously on aspirin, Eliquis. Due to significant anemia, multiple transfusions-- they were discontinued Follows with cardiology as outpatient H/O PACs on metoprolol DVT Px: Heparin SQ Code Status Full Code Admission and Anticipated Discharge Date Admission Date: January 24, 2023 Subjective Patient is seen and examined at bedside Diarrhea improving cough, sore throat improving as well Eager to get discharged No new complaints Discussed with patient's daughter over the phone Denies chest pain, dyspnea, nausea, vomiting, abdominal pain Review of Systems Review of Systems: All systems reviewed & are unremarkable except as noted in Subjective Physical Exam Physical Exam: Physical Exam: Vitals signs as noted above General Appearance:Moderately built and nourished, no apparent distress Head: normocephalic, Atraumatic Eyes: normal inspection, EOMI Neck: supple, Trachea midline Respiratory/Chest: Normal breath sounds, CTA, No accessory muscle use Cardiovascular: S1, S2, + murmur Abdomen/GI:Soft, Non tender, Bowel sounds present Extremities/Musculoskeletal:normal inspection, chronic venous stasis changes, edema Neurologic/Psych:AAOX3, grossly no focal neurological deficits, + hearing impair ment Skin: normal color, warm Results & Data Results & Data Vital Signs (Past 12 Hours) Vital Signs Temp Pulse Pulse Resp BP BP Pulse Ox 01/27/23 15:01 36.7 C 64 18 154/70 H 93 01/27/23 12:20 36.7 C 66 18 136/71 94 01/27/23 10:59 01/27/23 08:16 36.7 C 85 18 176/74 H 92 01/27/23 07:17 74 O2 Del Method 01/27/23 15:01 Room Air 01/27/23 12:20 Room Air 01/27/23 10:59 Room Air 01/27/23 08:16 Room Air 01/27/23 07:17 Laboratory Results Short CBC 01/27/23 Range/Units 05:41 WBC 3.56 L (4.8-10.8) K/ul Hgb 8.8 L (14.0-18.0) g/dl Hct 26.3 L (42.0-52.0) % Plt Count 87 L (130-400) K/uL BMP 01/27/23 05:41 Sodium 142 Potassium 3.6 Chloride 111 H Carbon Dioxide 25 BUN 19 Creatinine 1.44 H Glucose 113 H Calcium 8.7
[2023-01-27] MEDS: FIRST - Mouthwash BLM 119 ML PO PRN ×2 (17:20→20:54)
[2023-01-28] MEDS: AVODART~ORDER AWAITING ACTION SCH ×2 (00:38→08:42)
[2023-01-28 06:22] LABS: BUN Creatinine Ratio 14.2 (10-20); Calcium 8.4 mg/dl (8.6-10.3); Creatinine Clr Calc Pharmacy 43.4 ml/min; Est GFR (African American) 54.9 ml/min; Est GFR (Non-African American) 47.4 ml/min; Potassium 3.6 mmol/L (3.5-5.1)
[2023-01-28] MEDS: CYANOCOBALAMIN (B-12) 500 MCG TABLET PO SCH (08:40)
[2023-01-28] MEDS: PANTOprazole 40 MG TAB PO SCH (08:40)
[2023-01-28] MEDS: FERROUS SULFATE 325 MG TAB PO SCH (08:40)
[2023-01-28] MEDS: ADVANCED PROBIOTIC 1250 MG CAPSULE PO SCH (08:40)
[2023-01-28] MEDS: ATORVASTATIN 40 MG TAB PO SCH (08:40)
[2023-01-28] MEDS: TAMSULOSIN HCL 0.4 MG CAP PO SCH (08:41)
[2023-01-28] MEDS: ESCITALOPRAM OXALATE 20 MG TAB PO SCH (08:41)
[2023-01-28] MEDS: DOXYCYCLINE HYCLATE 100 MG CAP PO SCH (08:41)
[2023-01-28] MEDS: buPROPion XL 150 MG TABCR PO SCH (08:41)
[2023-01-28] MEDS: AMANTADINE HCL 100 MG CAPSULE PO SCH (08:41)
[2023-01-28] MEDS: METOPROLOL SUCC 25MG EXT REL TAB PO SCH (08:41)
[2023-01-28] MEDS: HEPARIN SOD 5,000 UNIT/0.5 ML VIAL SQ SCH (08:42)
[2023-01-28] MEDS: INSULIN ASPART PER UNIT CHARGE SC SCH ×2 (08:47→12:24)
--- NOTE | 2023-01-28 13:23 | Hospitalist Progress Note ---
Date of Service January 28, 2023 Assessment & Plan (1) Diarrhea: Plan: Patient is a 77 yr male who presents with ongoing diarrhea and weakness and some near syncope. Adenovirus infection Diarrhea, generalized weakness, near syncope secondary to above Dehydration -Normal procalcitonin -KUB:No acute abnormality is identified. -CXR:Cardiomegaly without acute process. -Stool studies negative -BioFire positive for Adenovirus Conservative management Empirically started on doxycycline for possible bronchitis IV fluids as needed Plan to be discharged home today Dysphagia Sore throat Speech therapy evaluation Aspiration precautions Throat culture --moderate normal kris Tolerating minced and moist diet Chronic Lower extremity edema Likely chronic venous stasis Less likely cellulitis Venous Doppler:No evidence of deep venous thrombus within the bilateral lower extremities. Monitor volume status Iron deficiency anemia Thrombocytopenia No acute bleeding issues Receives IV iron as outpatient regularly received IV venofer on 01/27/2023 CAD S/P coronary artery bypass grafting Continue statin, metoprolol Chronic diastolic congestive heart failure Mitral regurgitation. Continue metoprolol Resume torsemide Monitor volume status CKD III Cr near baseline Monitor renal function Avoid nephrotoxic agents as able Parkinson's disease Dementia On amantadine and donepezil BPH On dutasteride and Flomax GERD on PPI DM II HbA1C 5.7 Hold metformin Continue insulin while hospitalized Monitor BGs Paroxysmal atrial fibrillation Diagnosed Aug 2022 Previously on aspirin, Eliquis. Due to significant anemia, multiple transfusion s-- they were discontinued Follows with cardiology as outpatient H/O PACs on metoprolol DVT Px: Heparin SQ Code Status Full Code Disposition [facility] at home Admission and Anticipated Discharge Date Admission Date: January 24, 2023 Subjective Patient is seen and examined at bedside Sore throat resolved Diarrhea much improved Tolerating diet Offers no other complaints Prefers to be discharged Still has minimal cough Denies chest pain, dyspnea, nausea, vomiting, abdominal pain Review of Systems Review of Systems: All systems reviewed & are unremarkable except as noted in Subjective Physical Exam Physical Exam: Physical Exam: Vitals signs as noted above General Appearance:Moderately built and nourished, no apparent distress Head: normocephalic, Atraumatic Eyes: normal inspection, EOMI Neck: supple, Trachea midline Respiratory/Chest: Normal breath sounds, CTA, No accessory muscle use Cardiovascular: S1, S2, + murmur Abdomen/GI:Soft, Non tender, Bowel sounds present Extremities/Musculoskeletal:normal inspection, chronic venous stasis changes, edema Neurologic/Psych:AAOX3, grossly no focal neurological deficits, + hearing impairment Skin: normal color, warm Results & Data Results & Data Vital Signs (Past 12 Hours) Vital Signs Temp Pulse Pulse Resp BP Pulse Ox O2 Del Method 01/28/23 12:10 36.7 C 60 18 146/74 H 95 Room Air 01/28/23 08:00 Room Air 01/28/23 07:19 72 01/28/23 07:07 36.4 C L 67 18 181/72 H 94 Room Air 01/28/23 02:59 36.7 C 63 18 129/66 95 Room Air Laboratory Results [facility] 01/28/23 05:25 Sodium 140 Potassium 3.6 Chloride 109 H Carbon Dioxide 25 BUN 20 Creatinine 1.41 H Glucose 99 Calcium 8.4 L
--- NOTE | 2023-01-28 13:32 | Discharge Summary ---
Date of Service January 28, 2023 Admission HPI Per Admitting Provider CHIEF COMPLAINT: Weakness. 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 The patient is somewhat hard of hearing. is helping with H and P. As per the , the last 2 days he is having diarrhea and getting weak. It is difficult to get him up and he is having some imbalance and weakness and today in the bathroom, he called the to help. When went, he was holding on the wall and he slowly dropped down, did not hit his head, no loss of consciousness, but he was not able to get up. She called the neighbor, they could not get him up. They called EMS and they also had difficulty getting him up. That is when they decided to bring him to the hospital. He is having diarrhea for last 2 days. Denies any abdominal pain. No nausea or vomiting. Not eating much for the last couple of days. No fevers. He has lot of cough and he is bringing some phlegm with cough and also he has some sore throat. He is having pain while eating, that is the reason he is not eating much. Denies any headache. No chest pain, no shortness of breath. Has chronic back pain. Has some mild abdominal discomfort. His stools are black because he takes iron. Hemodynamics are stable. Admission Exam Per Admitting Provider PHYSICAL EXAMINATION: GENERAL: The patient is old and somewhat hard of hearing, not in acute distress. VITAL SIGNS: Temperature 37.2, pulse 75, respiratory rate 20, blood pressure 160/74, oxygen 94% on room air. HEENT: Pupils equal, round, and reactive to light. Oral mucosa moist. No erythematous changes seen in the pharynx region. NECK: No JVD. No neck masses. CARDIOVASCULAR: S1 and S2 heard. Regular rate and rhythm. No murmur, no gallop. RESPIRATORY SYSTEM: Normal AP diameter. No accessory muscle use. No wheezing, no crackles. ABDOMEN: Soft, bowel sounds present, nontender, no distention. CENTRAL NERVOUS SYSTEM: Alert and awake. No facial droop. Speech is okay. Obeys simple commands. Moves extremities. EXTREMITIES: Bilateral lower extremity chronic edema seen with some mild erythematous changes. Principal Diagnosis Adenovirus infection Acute bronchitis Dysphagia Iron deficiency anemia Discharge Data Allergies Allergy/AdvReac Type Severity Reaction Status Date / Time NSAIDS (Non-Steroidal Allergy Intermediate Rash Verified 01/24/23 20:55 Anti-Inflamma YONATAN Inhibitors AdvReac Intermediate Cough Verified 01/24/23 20:55 carbidopa AdvReac Intermediate constipatio Verified 01/24/23 20:55 n levodopa AdvReac Intermediate constipatio Verified 01/24/23 20:55 n Consultations 01/24/23 20:34 ED Decision to Admit Stat Procedures Performed Laboratory Results WBC 3.56 K/ul (4.8-10.8) L 01/27/23 05:41 RBC 2.57 M/uL (4.70-6.10) L 01/27/23 05:41 Hgb 8.8 g/dl (14.0-18.0) L 01/27/23 05:41 Hct 26.3 % (42.0-52.0) L 01/27/23 05:41 MCV 102.3 fL (80.0-100.0) H 01/27/23 05:41 MCH 34.2 pg (25.0-34.0) H 01/27/23 05:41 MCHC 33.5 g/dL (32.0-36.0) 01/27/23 05:41 RDW Std Deviation 52.2 fL (36.4-46.3) H 01/27/23 05:41 RDW Coeff of Anny 13.9 % (11.5-14.5) 01/27/23 05:41 Plt Count 87 K/uL (130-400) L 01/27/23 05:41 MPV 9.7 fL (9.4-12.4) 01/27/23 05:41 Immature Gran % (Auto) 0.4 % 01/25/23 05:32 Neut % (Auto) 73.4 % 01/25/23 05:32 Lymph % (Auto) 12.6 % 01/25/23 05:32 Charlton % (Auto) 13.4 % 01/25/23 05:32 Eos % (Auto) 0.0 % 01/25/23 05:32 Baso % (Auto) 0.2 % 01/25/23 05:32 Neut # (Auto) 3.77 K/uL (1.40-6.50) 01/25/23 05:32 Lymph # (Auto) 0.65 K/uL (1.2-3.4) L 01/25/23 05:32 Charlton # (Auto) 0.69 K/uL (0.11-0.59) H 01/25/23 05:32 Eos # (Auto) 0.00 K/uL (0-0.50) 01/25/23 05:32 Baso # (Auto) 0.01 K/uL (0-0.2) 01/25/23 05:32 Immature Gran # (Auto) 0.02 K/uL (0.01-0.20) 01/25/23 05:32 Platelet Estimate Decreased (Normal) L 01/26/23 07:54 Sodium 140 mmol/L (136-145) 01/28/23 05:25 Potassium 3.6 mmol/L (3.5-5.1) 01/28/23 05:25 Chloride 109 mmol/L (98-107) H 01/28/23 05:25 Carbon Dioxide 25 mmol/L (21-32) 01/28/23 05:25 Anion Gap 6 (3-11) 01/28/23 05:25 BUN 20 mg/dl (6-23) 01/28/23 05:25 Creatinine 1.41 mg/dl (0.6-1.4) H 01/28/23 05:25 Est Cr Clr Drug Dosing 43.4 ml/min 01/28/23 05:25 Est GFR ( Amer) 54.9 ml/min 01/28/23 05:25 Est GFR (Non-Af Amer) 47.4 ml/min 01/28/23 05:25 BUN/Creatinine Ratio 14.2 (10-20) 01/28/23 05:25 Glucose 99 mg/dl (70-99(Fasting)) 01/28/23 05:25 POC Glucose 97 mg/dl (70-99) 01/28/23 11:35 Estimat Average Glucose 117 mg/dl 01/25/23 05:32 Hemoglobin A1c 5.7 % (4.5-5.6) H 01/25/23 05:32 Calcium 8.4 mg/dl (8.6-10.3) L 01/28/23 05:25 Phosphorus 2.2 mg/dl (2.5-4.9) L 01/24/23 15:37 Magnesium 2.0 mg/dl (1.7-2.4) 01/27/23 05:41 Iron 19 mcg/dl (35-175) L 01/27/23 05:41 Ferritin 330.9 ng/ml (8-388) 01/27/23 05:41 Total Bilirubin 0.5 mg/dl (0.2-1.0) 01/24/23 15:37 AST 18 U/L (13-39) 01/24/23 15:37 ALT 13 U/L (7-52) 01/24/23 15:37 Alkaline Phosphatase 93 U/L (34-104) 01/24/23 15:37 Total Creatine Kinase 71 U/L (30-223) 01/24/23 15:37 Troponin I High Sens 10.1 pg/ml (0-20) 01/24/23 15:37 B-Natriuretic Peptide 124 pg/ml (0-100) H 01/24/23 15:37 Total Protein 6.7 gm/dl (6.0-8.3) 01/24/23 15:37 Albumin 4.3 gm/dl (3.4-5.0) 01/24/23 15:37 Globulin 2.4 gm/dl (2.5-4.0) L 01/24/23 15:37 Albumin/Globulin Ratio 1.8 (0.9-2) 01/24/23 15:37 Lipase 83 U/L (11-82) H 01/24/23 15:37 Procalcitonin 0.14 ng/ml (0-0.5) 01/26/23 07:54 TSH 3.307 uIu/ml (0.300-4.500) 01/24/23 17:22 Urine Color Yellow 01/24/23 15:37 Urine Appearance Clear (Clear) 01/24/23 15:37 Urine pH 5.5 (4.5-7.5) 01/24/23 15:37 Ur Specific Aguirre 1.008 (1.000-1.030) 01/24/23 15:37 Urine Protein Negative (Negative) 01/24/23 15:37 Urine Glucose (UA) Negative (Negative) 01/24/23 15:37 Urine Ketones Negative (Negative) 01/24/23 15:37 Urine Blood Negative (Negative) 01/24/23 15:37 Urine Nitrite Negative (Negative) 01/24/23 15:37 Urine Bilirubin Negative (Negative) 01/24/23 15:37 Urine Urobilinogen Negative (Negative) 01/24/23 15:37 Ur Leukocyte Esterase Negative (Negative) 01/24/23 15:37 Stl C. cayetanensis PCR Not Detected (NotDetected) 01/25/23 03:14 Stool Rotavirus A PCR Not Detected (NotDetected) 01/25/23 03:14 Stl Adenov F 40/41 PCR Not Detected (NotDetected) 01/25/23 03:14 Stool Astrovirus (PCR) Not Detected (NotDetected) 01/25/23 03:14 Stool Campylobacter PCR Not Detected (NotDetected) 01/25/23 03:14 Stl C. diff Tox B Gene Negative Cdiff Gene (Neg) 01/25/23 03:14 Stool Cryptosporidium PCR Not Detected (NotDetected) 01/25/23 03:14 Stl E.coli Shiga Tox PCR Not Detected (NotDetected) 01/25/23 03:14 Stl Enterotoxigenic E PCR Not Detected (NotDetected) 01/25/23 03:14 Stool EPEC (PCR) Not Detected (NotDetected) 01/25/23 03:14 Stool EAEC (PCR) Not Detected (NotDetected) 01/25/23 03:14 Stl E. histolytica PCR Not Detected (NotDetected) 01/25/23 03:14 Stool Giardia Lamblia PCR Not Detected (NotDetected) 01/25/23 03:14 Stool Salmonella PCR Not Detected (NotDetected) 01/25/23 03:14 Stool Sapovirus (PCR) Not Detected (NotDetected) 01/25/23 03:14 Stl P. shigelloides PCR Not Detected (NotDetected) 01/25/23 03:14 Stl Shigella/EIEC PCR Not Detected (NotDetected) 01/25/23 03:14 St Y.enterocolitica PCR Not Detected (NotDetected) 01/25/23 03:14 Stool Vibrio (PCR) Not Detected (NotDetected) 01/25/23 03:14 Stl Vibrio cholerae PCR Not Detected (NotDetected) 01/25/23 03:14 Stl Norovirus GI/GII PCR Not Detected (NotDetected) 01/25/23 03:14 Adenovirus (PCR) DETECTED (NotDetected) A* 01/25/23 10:14 B. pertussis DNA (PCR) Not Detected (NotDetected) 01/25/23 10:14 B.parapertussis DNA PCR Not Detected (NotDetected) 01/25/23 10:14 C. pneumoniae DNA (PCR) Not Detected (NotDetected) 01/25/23 10:14 Coronavirus OC43 (PCR) Not Detected (NotDetected) 01/25/23 10:14 Coronavirus HKU1 (PCR) Not Detected (NotDetected) 01/25/23 10:14 Coronavirus 229E (PCR) Not Detected (NotDetected) 01/25/23 10:14 SARS-CoV-2 (PCR) Not Detected (NotDetected) 01/25/23 10:14 Coronavirus NL63 (PCR) Not Detected (NotDetected) 01/25/23 10:14 Human Metapneumovir PCR Not Detected (NotDetected) 01/25/23 10:14 Influenza Type A (PCR) Not Detected (NotDetected) 01/25/23 10:14 Influenza Type B (PCR) Not Detected (NotDetected) 01/25/23 10:14 M. pneumoniae (PCR) Not Detected (NotDetected) 01/25/23 10:14 Parainfluenza 1 (PCR) Not Detected (NotDetected) 01/25/23 10:14 Parainfluenza 2 (PCR) Not Detected (NotDetected) 01/25/23 10:14 Parainfluenza 3 (PCR) Not Detected (NotDetected) 01/25/23 10:14 Parainfluenza 4 (PCR) Not Detected (NotDetected) 01/25/23 10:14 RSV (RT-PCR) Negative (Neg) 01/24/23 18:15 RSV (PCR) Not Detected (NotDetected) 01/25/23 10:14 Entero/Rhino (PCR) Not Detected (NotDetected) 01/25/23 10:14 Impressions Chest X-Ray 01/24/23 16:33 XR chest 1V portable HISTORY: 77 years-old Male dizziness acute dizziness COMPARISON: Chest radiograph 09/08/2022 TECHNIQUE: AP view of the chest FINDINGS: Cardiac silhouette is enlarged. Prior median sternotomy with CABG. Unchanged right hemidiaphragmatic elevation. No pneumothorax, pleural effusion, airspace consolidation or pulmonary edema. Degenerative changes of the shoulders and spine. Healed chronic left-sided rib fractures. IMPRESSION: Cardiomegaly without acute process. ACT 112: Negative or not required by law. The above report was generated using voice recognition software. It may contain grammatical, syntax or spelling errors. Electronically signed by: David Stewart M.D. 01/24/2023 4:51 PM KUB X-Ray 01/24/23 18:37 KUB CLINICAL HISTORY: Generalized abdominal pain. Diarrhea. FINDINGS: 2 AP, portable, supine abdominal radiographs are compared to study dated 05/02/2022 and correlated with abdominal CT dated 09/08/2022. There is a nonobstructed abdominal bowel gas pattern. No evidence of intraperitoneal free air is seen on these supine images. There are no abnormal abdominal calcifications. The skeletal structures are osteopenic and appear intact. There is advanced lumbosacral spondylosis. A right hip arthroplasty is in place. IMPRESSION: No acute abnormality is identified. Electronically signed by: Gonzales Alvarado M.D. 01/24/2023 10:27 PM Venous Doppler Study 01/25/23 00:18 BILATERAL LOWER EXTREMITY VENOUS DOPPLER CLINICAL HISTORY: lower ext edema. dvt? COMPARISON STUDY: Bilateral lower extremity venous Doppler ultrasound September 02, 2018 TECHNIQUE: Sonography of the deep venous system of the bilateral lower extremities was performed. Compression and augmentation were evaluated. FINDINGS: The bilateral common femoral, superficial femoral and popliteal veins were compressible. Augmentation was normal. Flow was shown within the deep calf vessels. Bilateral calf edema was noted. IMPRESSION: No evidence of deep venous thrombus within the bilateral lower extremities. ACT 112: Negative or not required by law. Electronically signed by: Calixto Bai M.D. 01/25/2023 7:09 AM Ordered Studies 01/25/23 00:18 US venous doppler LE Routine Hospital Course (1) Diarrhea: Patient is a 77 yr male who presents with ongoing diarrhea and weakness and some near syncope. Adenovirus infection Diarrhea, generalized weakness, near syncope secondary to above Dehydration -Normal procalcitonin -KUB:No acute abnormality is identified. -CXR:Cardiomegaly without acute process. -Stool studies negative -BioFire positive for Adenovirus Conservative management Empirically started on doxycycline for possible bronchitis IV fluids as needed Plan to be discharged home today Dysphagia Sore throat Speech therapy evaluation Aspiration precautions Throat culture --moderate normal kris Tolerating minced and moist diet Chronic Lower extremity edema Likely chronic venous stasis Less likely cellulitis Venous Doppler:No evidence of deep venous thrombus within the bilateral lower extremities. Monitor volume status Iron deficiency anemia Thrombocytopenia No acute bleeding issues Receives IV iron as outpatient regularly received IV venofer on 01/27/2023 CAD S/P coronary artery bypass grafting Continue statin, metoprolol Chronic diastolic congestive heart failure Mitral regurgitation. Continue metoprolol Resume torsemide Monitor volume status CKD III Cr near baseline Monitor renal function Avoid nephrotoxic agents as able Parkinson's disease Dementia On amantadine and donepezil BPH On dutasteride and Flomax GERD on PPI DM II HbA1C 5.7 Hold metformin Continue insulin while hospitalized Monitor BGs Paroxysmal atrial fibrillation Diagnosed Aug 2022 Previously on aspirin, Eliquis. Due to significant anemia, multiple transfusions-- they were discontinued Follows with cardiology as outpatient H/O PACs on metoprolol DVT Px: Heparin SQ Code Status Full Code Disposition [facility] at home Total Time Total Time Spent Total Time Spent (In Minutes): 56 minutes Discharge Plan Discharge Items Patient Disposition: Home - Home Health Services Reason For Visit: WEAKNESS Discharge Diagnosis: Adenovirus infection Acute bronchitis Dysphagia Iron deficiency anemia Activity: Per Instructions section Exercise/Sports: Gradually increase as tolerated Non-emergency contact: Primary Care Provider Call non-emergency contact if: you have any medication questions, your symptoms worsen, your pain is concerning for you and you have a fever Follow-up/Referrals: Michael Hinton MD [Primary Care Provider] - Dietitian Info: Minced and moist Diet: Carb Consistent or DM2 Addtl Attending Provider Instructions: Follow-up with your primary care physician Dr. Hinton in 1 week Follow-up with your physician for further recommendations on IV iron transfusions as needed. --- Complete the antibiotic course doxycycline as prescribed Seek immediate medical attention if your symptoms reoccur or worsen Please take all medications as instructed on discharge list below. Please call if you have any questions or problems. You can reach a [facility] hospitalist on duty at [facility] 24 hours a day by calling [phone] Pending Studies at Discharge: No Stand-Alone Forms: My [facility], Smoking Cessation Medications and DC Order Prescriptions: New doxycycline hyclate 100 mg Capsule 100 mg PO BID Qty: 8 0RF loperamide 2 mg Capsule 2 mg PO Q6H PRN (Reason: loose stool) Qty: 10 0RF Continued metoprolol succinate 25 mg tablet extended release 24 hr 25 mg PO QAM Qty: 90 3RF torsemide 20 mg tablet 40 mg PO DAILY Rx Instructions: PER [facility]G-40 MG, PER PT--60 MG DAILY escitalopram oxalate 20 mg tablet 20 mg PO QAM Qty: 90 3RF amantadine HCl 100 mg capsule 100 mg PO QAM Rx Instructions: ordered bid but takes only in morning Dupixent Pen 300 mg/2 mL pen injector 300 mg subcut .every 2 weeks Rx Instructions: Every other Monday- atorvastatin 40 mg Tablet 40 mg PO QAM tamsulosin 0.4 mg capsule 0.4 mg PO QAM ferrous sulfate [FeroSul] 325 mg (65 mg iron) Tablet 325 mg PO BID albuterol sulfate 90 mcg/actuation HFA aerosol inhaler 2 puff INHALATION QID PRN (Reason: Shortness Of Breath Or Wheezing) betamethasone dipropionate 0.05 % Cream 1 applic TOPICAL BID PRN (Reason: Skin Irritation) Rx Instructions: apply to trunk rash twice daily as needed donepezil 5 mg Tablet 10 mg PO HS Rx Instructions: PER GMG--5 MG HS, PER PT--10 MG HS. cyanocobalamin (vitamin B-12) [Vitamin B-12] 1,000 mcg Tablet 2,000 mcg PO DAILY dutasteride 0.5 mg Capsule 0.5 mg PO DAILY pantoprazole 40 mg tablet,delayed release (DR/EC) 40 mg PO DAILY metformin 500 mg tablet extended release 24 hr 500 mg PO QAM bupropion HCl 150 mg tablet extended release 24 hr 150 mg PO DAILY fluocinonide 0.05 % solution 1 applic TOPICAL DAILY PRN (Reason: after bathing) Rx Instructions: apply to scalp Discontinued cephalexin 500 mg Tablet 500 mg PO BID Discharge Orders: Discharge Order (Routine); Ordered 01/28/23 Ordered By: Seven Amador Admission Data Admit Date/Time: 01/24/23 21:58 Attending Provider: Seven Amador Admit Provider: Jeff Gibbs Primary Care Provider: Michael Hinton Other Providers: Jeff Gibbs ; [facility]
== END 2023-01-28 14:45 | disposition home health service (06) | DRG 392 ==
LOC: ED 15:31 → EDINP 21:58 → SUATTDRO 21:58 → 2W 01-25 00:17

== ENCOUNTER 2023-10-06 15:14 | Inpatient (IN) ==
[2023-10-06 16:40] LABS: Alanine Aminotransferase 10 U/L (7-52); Albumin Level 4.1 gm/dl (3.4-5.0); Alkaline Phosphatase 103 U/L (34-104); Anion Gap 10 (3-11); Aspartate Aminotransferase 14 U/L (13-39); BUN Creatinine Ratio 16.5 (10-20); Bilirubin,Total 0.5 mg/dl (0.2-1.0); Blood Urea Nitrogen 35 mg/dl (6-23); Calcium 9.7 mg/dl (8.6-10.3); Carbon Dioxide 30 mmol/L (21-32); Chloride 103 mmol/L (98-107); Est GFR (African American) 33.3 ml/min; Est GFR (Non-African American) 28.7 ml/min; Globulin 2.1 gm/dl (2.5-4.0); Glucose 121 mg/dl (70-99(Fasting)); Lipase 200 U/L (11-82); Sodium 143 mmol/L (136-145); Total Protein 6.2 gm/dl (6.0-8.3)
[2023-10-06] MEDS ORDERED: SODIUM CHLORIDE 0.9% 250 ML IV PRN (16:45)
[2023-10-06 16:46] LABS: Troponin I High Sensitivity 9.5 pg/ml (0-20)
--- NOTE | 2023-10-06 17:04 | Emergency Department Note ---
Impression & Plan Acute GI bleeding, Symptomatic anemia, CKD (chronic kidney disease) ED Provider Note NAME: CHE BURCH AGE: 78 SEX: M : 1945 ARRIVES VIA: Walk-In INFORMANT: Patient ED PROVIDER(S): Chandra Lundy DO CHIEF COMPLAINT: weakness HPI: Patient is a 78-year-old male who presents to the ER for weakness. He admits to exertional shortness of breath as well as looking paler than usual. He also admits to black stools which have been present for the past 2 weeks. Denies any headache or change in vision. No chest pain or shortness of breath. No nausea, vomiting, or diarrhea. No dysuria, urgency, or frequency. No other exacerbating or remitting factors. ADDITIONAL HISTORY OBTAINED: Per HPI Chronic Medical/Social Conditions Affecting Care: Per HPI PAST MEDICAL HISTORY:See Below PAST SURGICAL HISTORY:See Below FAMILY HISTORY:See Below SOCIAL HISTORY:See Below HOME MEDICATIONS:See Below ALLERGIES:See Below VITALS:See Below PHYSICAL EXAMINATION: GENERAL: Sitting up in bed, alert, well appearing, well nourished, no distress, non-toxic EYE EXAM: normal conjunctiva. OROPHARYNX: mucous membranes are moist LUNGS: Clear to auscultation. Normal chest wall mechanics HEART: no murmurs, S1 normal and S2 normal ABDOMEN: abdomen soft, non-tender, normo-active bowel sounds, no masses, no rebound or guarding. RECTAL: Heme positive stool UPPER EXTREMITIES: upper extremities are grossly normal. LOWER EXTREMITIES: No pitting edema. NEURO EXAM: Normal sensorium, cranial nerves II-XII grossly intact, normal speech, no gross weakness of arms, no gross weakness of legs. MEDICAL DECISION MAKING: Patient is a 78-year-old male who presents ER for exertional shortness of breath as well as low hemoglobin. IV was established blood work was obtained. Labs show mild leukopenia at 4. Hemoglobin was low at 6.9 down from baseline of 10. Rectal was heme positive performed by myself at bedside. BMP with a creatinine of 2 and a BUN elevated at 35 which again does suggest a GI bleed. LFTs bilirubin was unremarkable. Troponin was negative. Patient was typed and crossed and ordered 2 units of PRBCs. I consented him at bedside. [facility]. Consults/Care Managements Discussions: Per MDM Triage Nursing notes reviewed. Limited review of prior medical records performed Vital Signs: reviewed and remarkable for no significant abnormalities Differential diagnosis: Infection, dehydration, metabolic abnormality, hypo/hyperglycemia, electrolyte disturbance, anemia, hypoxia, cardiac sources, intracerebral event, toxicologic, neurologic, as well as other pathologies. ER treatment provided: See below Diagnostics interpreted by me include EKG and cardiac monitoring as listed below: -Cardiac Monitoring: An order was placed for continuous cardiac monitoring. The monitor shows a rate of 90 with sinus rhythm. -ECG: Sinus rhythm rate 94 Normal axis No PVCs QTc [address] ST depressions in the lateral leads -Laboratory studies: Reviewed as described above Imaging studies: Xrays: As interpreted by me: Portable AP upright 1 view the chest shows no focal infiltrate CTs show: none Procedures:none Critical Care: I have personally spent 32 minutes of critical care time in the direct management of this patient. This includes bedside care, interpretation of diagnostic studies, and testing, discussion with consultants, patient, and family members, and other required patient management activities. This 32 minutes is in excess of all separately billable procedures. 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 Diabetes type 2, controlled Diastolic dysfunction MUSTAFA (dyspnea on exertion) Dyslipidemia GERD (gastroesophageal reflux disease) History of blood transfusion History of COVID-19 History of pneumonia HTN (hypertension) HUNTER (iron deficiency anemia) Lower extremity edema Lumbar spondylosis Moderate mitral regurgitation Orthostatic hypotension (07/2019) Peripheral arterial disease Primary parkinsonism Recurrent cellulitis of lower extremity Seasonal allergies Sensorineural hearing loss (SNHL) of both ears Sepsis due to group B Streptococcus (2018) Thoracic aortic aneurysm Surgical History H/O eye surgery H/O foot surgery History of carpal tunnel release of both wrists History of esophagogastroduodenoscopy (EGD) History of neck surgery History of right hip replacement Hx of bilateral cataract extraction Hx of colonoscopy S/P CABG (coronary artery bypass graft) (2011) S/P triple vessel bypass (2011) S/P wrist surgery Family History Unknown No problems noted. Father Hypertension, Onset Age: 40 Mother Hypertension COPD (chronic obstructive pulmonary disease) Diabetes Brother Allergies Asthma Denies family history of Prostate cancer Hearing loss No family history of adverse response to anesthesia No family history of bleeding disorder Heart disease Cancer Stroke Social History Smoking Status: Never smoker Cigarettes Per Day: smokes a cigar occasionally; Second Hand Exposure: No; Do You Dip or Chew Tobacco: No; Hx Alcohol Use: No Hx Substance Use: No Preferred Language: Spanish Communication Ability: Effective Communication Ability Comment: Hard of hearing Bread Pan Greaser Required: No Beliefs That Will Affect Care: None marital status: Current Living Situation: Spouse and Family Current Living Situation Comment: Lives at home with spouse Feels Safe at Home: Yes Assistive Devices: Hearing Aid - Bilateral and Walker Allergies Allergies Allergy/AdvReac Type Severity Reaction Status Date / Time NSAIDS (Non-Steroidal Allergy Intermediate Rash Verified 10/06/23 17:18 Anti-Inflamma YONATAN Inhibitors AdvReac Intermediate Cough Verified 10/06/23 17:18 carbidopa AdvReac Intermediate constipatio Verified 10/06/23 17:18 n levodopa AdvReac Intermediate constipatio Verified 10/06/23 17:18 n Home Meds Home Medications Medication Instructions Recorded Confirmed atorvastatin 40 mg tablet 40 mg PO QAM 09/02/18 10/06/23 amantadine HCl 100 mg capsule 100 mg PO QAM 05/22/20 10/06/23 bupropion HCl 150 mg 24 hr tablet, 150 mg PO QAM 06/17/21 10/06/23 extended release (Wellbutrin XL) fluocinonide 0.05 % topical 1 applic topical DAILY PRN after 06/17/21 10/06/23 solution bathing metformin 500 mg tablet,extended 500 mg PO QAM 06/17/21 10/06/23 release 24 hr albuterol sulfate 90 mcg/actuation 2 puff inhalation QID PRN 09/08/22 10/06/23 aerosol inhaler Shortness Of Breath Or Wheezing betamethasone dipropionate 0.05 % 1 applic topical BID PRN Skin 09/08/22 10/06/23 topical cream Irritation ferrous sulfate 325 mg (65 mg 325 mg PO QAM 09/08/22 10/06/23 iron) tablet (FeroSul) tamsulosin 0.4 mg capsule 0.4 mg PO QAM 09/08/22 10/06/23 torsemide 20 mg tablet 20 mg PO QAM 11/28/22 10/06/23 cyanocobalamin (vitamin B-12) 2,000 mcg PO QAM 01/24/23 10/06/23 1,000 mcg tablet (Vitamin B-12) donepezil 5 mg tablet 10 mg PO QAM 01/24/23 10/06/23 dutasteride 0.5 mg capsule 0.5 mg PO QAM 01/24/23 10/06/23 pantoprazole 40 mg tablet,delayed 40 mg PO QAM 01/24/23 10/06/23 release Previous Rx's Medication Instructions Recorded escitalopram oxalate 20 mg tablet 20 mg PO QAM #90 tabs 01/23/23 metoprolol succinate 25 mg 25 mg PO QAM #90 tabs 03/21/23 tablet,extended release 24 hr Results & Data (ED) Vital Signs Vital Signs - 24 hr 10/06/23 15:39 10/06/23 16:19 10/06/23 17:00 Temperature 36.0 C L Temperature Source Temporal Artery Scan Pulse Rate 94 H 85 Pulse Rate from SpO2 Sensor 86 Respiratory Rate 20 15 Respiratory Effort / Characteristics Non-Labored Spontaneous Respiratory Depth Normal Blood Pressure 118/71 Blood Pressure Mean 86 Pulse Oximetry 98 97 Oxygen Delivery Method Room Air Room Air Sepsis Recent Fever Within 48 Hours No Sepsis New/Unexplained Change in Mental Status N/A Sepsis Action Taken by Nursing No Action Required 10/06/23 17:01 10/06/23 17:01 10/06/23 17:03 Temperature Temperature Source Pulse Rate 86 91 H Pulse Rate from SpO2 Sensor 86 Respiratory Rate 24 Respiratory Effort / Characteristics Respiratory Depth Blood Pressure 156/70 H Blood Pressure Mean 98 Pulse Oximetry 94 Oxygen Delivery Method Sepsis Recent Fever Within 48 Hours Sepsis New/Unexplained Change in Mental Status Sepsis Action Taken by Nursing 10/06/23 17:10 10/06/23 17:20 10/06/23 17:30 Temperature Temperature Source Pulse Rate 118 H 90 Pulse Rate from SpO2 Sensor 101 H 86 Respiratory Rate 23 15 Respiratory Effort / Characteristics Respiratory Depth Blood Pressure 149/76 H Blood Pressure Mean 104 Pulse Oximetry 99 95 Oxygen Delivery Method Sepsis Recent Fever Within 48 Hours Sepsis New/Unexplained Change in Mental Status Sepsis Action Taken by Nursing 10/06/23 17:30 10/06/23 17:40 10/06/23 17:47 Temperature 36.6 C Temperature Source Oral Pulse Rate 84 84 83 Pulse Rate from SpO2 Sensor 84 83 Respiratory Rate 22 23 22 Respiratory Effort / Characteristics Respiratory Depth Blood Pressure 162/74 H Blood Pressure Mean 103 Pulse Oximetry 99 96 96 Oxygen Delivery Method Sepsis Recent Fever Within 48 Hours Sepsis New/Unexplained Change in Mental Status Sepsis Action Taken by Nursing 10/06/23 17:48 10/06/23 17:48 10/06/23 17:50 Temperature Temperature Source Pulse Rate 82 81 Pulse Rate from SpO2 Sensor 81 82 Respiratory Rate 15 23 Respiratory Effort / Characteristics Respiratory Depth Blood Pressure 162/74 H Blood Pressure Mean 136 Pulse Oximetry 96 99 Oxygen Delivery Method Sepsis Recent Fever Within 48 Hours Sepsis New/Unexplained Change in Mental Status Sepsis Action Taken by Nursing 10/06/23 18:03 10/06/23 18:18 Temperature 36.6 C 37.1 C Temperature Source Oral Oral Pulse Rate 84 79 Pulse Rate from SpO2 Sensor Respiratory Rate 15 20 Respiratory Effort / Characteristics Respiratory Depth Blood Pressure 148/99 H 157/74 H Blood Pressure Mean 115 101 Pulse Oximetry 98 95 Oxygen Delivery Method Sepsis Recent Fever Within 48 Hours Sepsis New/Unexplained Change in Mental Status Sepsis Action Taken by Nursing Laboratory Data 10/06/23 16:09 10/06/23 16:09 Lab Results 10/06/23 10/06/23 Range/Units 16:09 16:10 WBC 4.03 L (4.8-10.8) K/ul RBC 2.27 L (4.70-6.10) M/uL Hgb 6.9 L* (14.0-18.0) g/dl Hct 21.6 L (42.0-52.0) % MCV 95.2 (80.0-100.0) fL MCH 30.4 (25.0-34.0) pg MCHC 31.9 L (32.0-36.0) g/dL RDW Std Deviation 45.7 (36.4-46.3) fL RDW Coeff of Anny 13.2 (11.5-14.5) % Plt Count 168 (130-400) K/uL MPV 9.6 (9.4-12.4) fL Immature Gran % (Auto) 0.5 % Neut % (Auto) 67.0 % Lymph % (Auto) 20.1 % [place] % (Auto) 11.7 % Eos % (Auto) 0.5 % Baso % (Auto) 0.2 % Neut # (Auto) 2.70 (1.40-6.50) K/uL Lymph # (Auto) 0.81 L (1.20-3.40) K/uL [place] # (Auto) 0.47 (0.11-0.59) K/uL Eos # (Auto) 0.02 (0.00-0.50) K/uL Baso # (Auto) 0.01 (0.00-0.20) K/uL Immature Gran # (Auto) 0.02 (0.01-0.20) K/uL Absolute Nucleated RBC 0.02 (0.00-0.12) K/uL Nucleated RBC % (auto) 0.5 % Hypochromasia Present Microcytosis Present Sodium 143 (136-145) mmol/L Potassium 4.0 (3.5-5.1) mmol/L Chloride 103 (98-107) mmol/L Carbon Dioxide 30 (21-32) mmol/L Anion Gap 10 (3-11) BUN 35 H (6-23) mg/dl Creatinine 2.12 H (0.6-1.4) mg/dl Est Cr Clr Drug Dosing Not Reportable Est GFR ( Amer) 33.3 ml/min Est GFR (Non-Af Amer) 28.7 ml/min BUN/Creatinine Ratio 16.5 (10-20) Glucose 121 H (70-99(Fasting)) mg/dl Calcium 9.7 (8.6-10.3) mg/dl Total Bilirubin 0.5 (0.2-1.0) mg/dl AST 14 (13-39) U/L ALT 10 (7-52) U/L Alkaline Phosphatase 103 (34-104) U/L Troponin I High Sens 9.5 (0-20) pg/ml Total Protein 6.2 (6.0-8.3) gm/dl Albumin 4.1 (3.4-5.0) gm/dl Globulin 2.1 L (2.5-4.0) gm/dl Albumin/Globulin Ratio 2.0 (0.9-2) Lipase 200 H (11-82) U/L Blood Type A Positive Antibody Screen NEGATIVE Crossmatch See Detail Imaging Data Radiologist's Impression: Chest X-Ray 10/06/23 15:52 SINGLE VIEW CHEST CLINICAL HISTORY: Atypical chest pain. FINDINGS: An AP, portable, upright chest radiograph is compared to study dated 01/24/2023 and correlated with chest CT dated 07/05/2022. The examination is degraded by portable technique and apical lordotic positioning. The patient is status post midline sternotomy. The heart is enlarged with atherosclerotic calcification of the thoracic aorta. The pulmonary vasculature is noncongested. Chronic interstitial thickening is similar to previous. There is mild bibasilar scarring/atelectasis. The lungs and pleural spaces are otherwise clear. No pneumothorax is seen. The skeletal structures are osteopenic. There are chronic/healed left-sided rib fractures. Degenerative change is noted in the shoulders and spine. Fusion hardware is noted in the cervical spine. IMPRESSION: Cardiomegaly with no active disease in the chest. ACT 112: Negative or not required by law. Electronically signed by: Gonzales Alvarado M.D. 10/06/2023 5:14 PM Discharge Plan Visit Data Chief Complaint: Abnormal Labs/Diagnostic Testing Stated Complaint: HEMOGLOBIN LOW ED Provider: Chandra Lundy Discharge Problem: Acute GI bleeding, Symptomatic anemia, CKD (chronic kidney disease) Forms Stand Alone Forms: My [facility] [place] [employer] Prescriptions Prescriptions: No Action torsemide 20 mg tablet 20 mg PO QAM MDD 40mg Patient Comments: may increase due to fluid retention Rx Instructions: Can take an additional 20mg if needed for more swelling/weight gain. escitalopram oxalate 20 mg tablet 20 mg PO QAM Qty: 90 3RF metoprolol succinate 25 mg tablet extended release 24 hr 25 mg PO QAM Qty: 90 3RF amantadine HCl 100 mg capsule 100 mg PO QAM atorvastatin 40 mg Tablet 40 mg PO QAM tamsulosin 0.4 mg capsule 0.4 mg PO QAM ferrous sulfate [FeroSul] 325 mg (65 mg iron) Tablet 325 mg PO QAM albuterol sulfate 90 mcg/actuation HFA aerosol inhaler 2 puff INHALATION QID PRN (Reason: Shortness Of Breath Or Wheezing) betamethasone dipropionate 0.05 % Cream 1 applic TOPICAL BID PRN (Reason: Skin Irritation) Rx Instructions: apply to trunk rash twice daily as needed donepezil 5 mg Tablet 10 mg PO QAM Rx Instructions: PER GMG--5 MG HS, PER PT--10 MG HS. cyanocobalamin (vitamin B-12) [Vitamin B-12] 1,000 mcg Tablet 2,000 mcg PO QAM dutasteride 0.5 mg Capsule 0.5 mg PO QAM pantoprazole 40 mg tablet,delayed release (DR/EC) 40 mg PO QAM metformin 500 mg tablet extended release 24 hr 500 mg PO QAM bupropion HCl [Wellbutrin XL] 150 mg tablet extended release 24 hr 150 mg PO QAM fluocinonide 0.05 % solution 1 applic TOPICAL DAILY PRN (Reason: after bathing) Rx Instructions: apply to scalp Referrals Referrals: Michael Hinton MD [Primary Care Provider] - Discharge Problem: CKD (chronic kidney disease) Qualifiers: Chronic kidney disease stage: unspecified stage Qualified Code(s): N18.9 - Chronic kidney disease, unspecified
--- NOTE | 2023-10-06 17:15 | XRay Report ---
SINGLE VIEW CHEST CLINICAL HISTORY: Atypical chest pain. FINDINGS: An AP, portable, upright chest radiograph is compared to study dated 01/24/2023 and correlate d with chest CT dated 07/05/2022. The examination is degraded by portable technique and apical lordoti c positioning. The patient is status post midline sternotomy. The heart is enlarged with atherosclero tic calcification of the thoracic aorta. The pulmonary vasculature is noncongested. Chronic interstit ial thickening is similar to previous. There is mild bibasilar scarring/atelectasis. The lungs and pl eural spaces are otherwise clear. No pneumothorax is seen. The skeletal structures are osteopenic. Th ere are chronic/healed left-sided rib fractures. Degenerative change is noted in the shoulders and sp ine. Fusion hardware is noted in the cervical spine. IMPRESSION: Cardiomegaly with no active disease in the chest. ACT 112: Negative or not required by law. Electronically signed by: Gonzales Alvarado M.D. 10/06/2023 5:14 PM
[2023-10-06 17:40] LABS: Hematocrit (blood only) 21.6 % (42.0-52.0); Hemoglobin 6.9 g/dl (14.0-18.0); Mean Corpuscular Hemoglobin 30.4 pg (25.0-34.0); Mean Corpuscular Hgb Conc 31.9 g/dL (32.0-36.0); Mean Corpuscular Volume 95.2 fL (80.0-100.0); Mean Platelet Volume 9.6 fL (9.4-12.4); Nucleated RBC # (auto) 0.02 K/uL (0.00-0.12); Nucleated RBC % (auto) 0.5 %; Platelet Count 168 K/uL (130-400); RDW Coefficient of Variation 13.2 % (11.5-14.5); RDW Standard Deviation 45.7 fL (36.4-46.3); Red Blood Count 2.27 M/uL (4.70-6.10); White Blood Count 4.03 K/ul (4.8-10.8)
[2023-10-06 17:42] LABS: Basophils # (auto) 0.01 K/uL (0.00-0.20); Basophils % (auto) 0.2 %; Eosinophils # (auto) 0.02 K/uL (0.00-0.50); Eosinophils % (auto) 0.5 %; Hypochromasia Present; Immature Granulocytes # (auto) 0.02 K/uL (0.01-0.20); Immature Granulocytes % (auto) 0.5 %; Lymphocytes # (auto) 0.81 K/uL (1.20-3.40); Lymphocytes % (auto) 20.1 %; Microcytosis Present; Monocytes # (auto) 0.47 K/uL (0.11-0.59); Monocytes % (auto) 11.7 %
--- NOTE | 2023-10-06 18:08 | History & Physical Report ---
Date of Service October 06, 2023 Assessment & Plan (1) Acute on chronic anemia: (2) Melena: Plan: Patient is 78 y/o M with PMH CAD s/p CABG, chronic diastolic heart failure, paroxysmal atrial fibrillation not anticoagulated secondary to anemia, CKD III, DM II, Parkinson's, BPH, GERD, chronic anemia presented to ER with complaint of melena and anemia on recent labs. c/o exertional shortness of breath. HGB has been downtrending from Hgb:11 over the past couple of months to 6.5 on 10/05/23. Patient follows with hematology, Dr. Smith. Receives IV iron monthly, last was 09/14. History of colonoscopy 08/2022: Sigmoid diverticula, 4 mm polyp sigmoid colon, internal hemorrhoids History EGD 08/2022: Normal esophagus, stomach and duodenum Today in ER afebrile, vital stable. No leukocytosis. H/H: 6.9/. BUN: 35,Cr: 2.1 Reported heme positive stool in ER Possible GI bleed In ER typed and crossed and 2 units PRBCs ordered with first unit currently transfusing Repeat H&H PPI IV Clear liquid diet for now N.p.o. midnight CT abdomen pelvis pending CBC, CMP in a.m. (3) Elevated lipase: Plan: Lipase: 200 Patient without abdominal pain, nausea, vomiting or diarrhea CT abdomen pelvis pending Less likely suspect acute pancreatitis Will hold on aggressive IVF secondary to patient's history of CHF Clear liquid diet, n.p.o. midnight for above Lipase in a.m. (4) Coronary artery disease: Plan: S/P CABG Denies chest pain Not on aspirin currently per hematology secondary to anemia Continue metoprolol succinate (5) CHF (congestive heart failure): Plan: Moderate mitral regurgitation, EF: 60-65% per echo in 04/2022 Chronic BLE edema CXR without significant overload noted Will hold torsemide and reassess tomorrow (6) Paroxysmal A-fib: Plan: Not on anticoagulation secondary to anemia Continue metoprolol succinate (7) CKD (chronic kidney disease) stage 3, GFR 30-59 ml/min: Plan: Cr: 2.1. Baseline ~1.9 Monitor renal functions, avoid nephrotoxic agents when possible (8) Diabetes type 2, controlled: Plan: A1c: 6.1 on 04/12/2023 Hold home metformin NovoLog correction sliding scale only for now as patient n.p.o. midnight (9) Primary parkinsonism: (10) Dementia associated with Parkinson's disease: Plan: Continue donepezil, amantadine (11) BPH (benign prostatic hyperplasia): Plan: Continue dutasteride (12) GERD (gastroesophageal reflux disease): Plan: Hold home oral Protonix as is currently on IV DVT Prophylaxis SCDs Full Code as per discussion with pt Follows with Dr Hinton for routine care Pt was seen and care coordinated with Dr Gibbs. See addendum History of Present Illness Chief Complaint: melena Primary Care Provider: Michael Hinton MD Patient is 78 y/o M with PMH CAD s/p CABG, chronic diastolic heart failure, paroxysmal atrial fibrillation not anticoagulated secondary to anemia, CKD III, DM II, Parkinson's, BPH, GERD, chronic anemia presented to ER with complaint of melena and anemia on recent labs. History obtained from patient, patient's spouse, and inpatient and outpatient chart review. Patient had outpatient hemoglobin of 6.5 on 10/05/2023. Patient's hemoglobin has been downtrending from Hgb 11 over the past couple of months. Patient follows with hematology, Dr. Smith. Has been receiving IV iron infusions monthly. Reports last infusion in August 2023. Patient states stools have been very dark in coloration. Has not noted any bright red blood per rectum. Denies abdominal pain. Has been having increased shortness of breath with exertion past couple of weeks. Denies any chest pain. Denies any syncope. Sleeps in recliner chronically secondary to chronic neck pain. Denies orthopnea. Has chronic lower extremity edema and is on torsemide. reports history of recurrent lower extremity cellulitis but has not noticed any erythema and patient denies any extremity pain and is on chronic cephalexin. Right lower leg is larger than left leg at baseline. History workup with colonoscopy and EGD in 08/2022 in past were mostly unremarkable. Uses walker for ambulation. Denies any recent falls. Forgot to take medications today. Denies fever/chills, diaphoresis, N/V/D/C, ESTEVEZ,CP, palpitations, cough, sore throat, rhinorrhea, abdominal pain, increased weakness, urinary symptoms. Allergies Allergy/AdvReac Type Severity Reaction Status Date / Time NSAIDS (Non-Steroidal Allergy Intermediate Rash Verified 10/06/23 17:18 Anti-Inflamma YONATAN Inhibitors AdvReac Intermediate Cough Verified 10/06/23 17:18 carbidopa AdvReac Intermediate constipatio Verified 10/06/23 17:18 n levodopa AdvReac Intermediate constipatio Verified 10/06/23 17:18 n Home Medications Medication Instructions Recorded Confirmed Type amantadine HCl 100 mg capsule 100 mg PO QAM 05/22/20 10/06/23 History bupropion HCl 150 mg 24 hr tablet, 150 mg PO QAM 06/17/21 10/06/23 History extended release (Wellbutrin XL) fluocinonide 0.05 % topical 1 applic topical DAILY PRN after 06/17/21 10/06/23 History solution bathing metformin 500 mg tablet,extended 500 mg PO QAM 06/17/21 10/06/23 History release 24 hr albuterol sulfate 90 mcg/actuation 2 puff inhalation QID PRN 09/08/22 10/06/23 History aerosol inhaler Shortness Of Breath Or Wheezing betamethasone dipropionate 0.05 % 1 applic topical BID PRN Skin 09/08/22 10/06/23 History topical cream Irritation ferrous sulfate 325 mg (65 mg 325 mg PO QAM 09/08/22 10/06/23 History iron) tablet (FeroSul) torsemide 20 mg tablet 20 mg PO QAM 11/28/22 10/06/23 History escitalopram oxalate 20 mg tablet 20 mg PO QAM #90 tabs 01/23/23 10/06/23 Rx cyanocobalamin (vitamin B-12) 2,000 mcg PO QAM 01/24/23 10/06/23 History 1,000 mcg tablet (Vitamin B-12) dutasteride 0.5 mg capsule 0.5 mg PO QAM 01/24/23 10/06/23 History pantoprazole 40 mg tablet,delayed 40 mg PO QAM 01/24/23 10/06/23 History release metoprolol succinate 25 mg 25 mg PO QAM #90 tabs 03/21/23 10/06/23 Rx tablet,extended release 24 hr cephalexin 500 mg capsule 500 mg PO DAILY 10/06/23 10/06/23 History donepezil 10 mg tablet 10 mg PO DAILY 10/06/23 10/06/23 History Past Med/Surg History Medical History Atrial fibrillation f/u Dr. Benz Thompson Eliquis on hold due to anemia History of blood transfusion 03/24/23, "he's bleeding somewhere, has a low blood count, not sure where losing it from"; f/[facility]. 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 History of pneumonia end of 01/2023, found in lt. 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 Benz Thompson Thoracic aortic aneurysm sx in 2011, at [facility] Lumbar spondylosis MUSTAFA (dyspnea on exertion) inh prn Coronary aneurysm (2011) Per cardio records CAD with CABG in 2011 (CHILDS to LAD and exclusion of RCA aneurysm Sepsis due to group B Streptococcus (2017) Adverse reaction to anesthetic agent 2011 w/hip replacement>hallucinated for 3 days Atrial ectopy Orthostatic hypotension (07/2019) Peripheral arterial disease Recurrent cellulitis of lower extremity Anxiety BPH (benign prostatic hyperplasia) CAD (coronary artery disease) history of CABG (CHILDS to LAD and exclusion of a right coronary artery aneurysm), 2011 at [facility]. Surgical History History of carpal tunnel release of both wrists History of esophagogastroduodenoscopy (EGD) Hx of colonoscopy Hx of bilateral cataract extraction History of neck surgery [facility] w/Dr. Pacheco; ROM-"can't turn it very far side to side nor move it up or down very far" S/P wrist surgery S/P CABG (coronary artery bypass graft) (2012) CHILDS, "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 S/P triple vessel bypass (2011) [facility] w/Dr. Weathers; f/u Dr. Benz, [facility] History of right hip replacement H/O foot surgery reconstructive sx on rt. foot H/O eye surgery numerous when he was young Family History Unknown No problems noted. Father Hypertension, Onset Age: 40 at 40 Mother Hypertension COPD (chronic obstructive pulmonary disease) Diabetes Brother Allergies Asthma Denies family history of Prostate cancer Hearing loss No family history of adverse response to anesthesia No family history of bleeding disorder Heart disease Cancer Stroke Social History Smoking Status: Never smoker Cigarettes Per Day: smokes a cigar occasionally; Second Hand Exposure: No; Do You Dip or Chew Tobacco: No; Hx Alcohol Use: No Hx Substance Use: No Preferred Language: Maltese Communication Ability: Effective Communication Ability Comment: Hard of hearing Cotton Grader Required: No Beliefs That Will Affect Care: None marital status: Current Living Situation: Spouse and Family Current Living Situation Comment: Lives at home with spouse Feels Safe at Home: Yes Assistive Devices: Hearing Aid - Bilateral and Walker Review of Systems Review of Systems: All systems reviewed & are unremarkable except as noted in HPI & below Physical Exam Physical Exam: General: no distress, WDWN Head: normocephalic, atraumatic Eyes: PERRL, conjunctiva pale, anicteric ENT: +hard of hearing, normal inspection external ears, nose, mucous membranes moist Neck: supple, trachea midline Lungs: clear, no respiratory distress, no wheezing/rhonchi/rales CV: RRR, + murmur, 2+ pretibial edema Abd: protuberant, normal BS, soft, non-tender Ext: no cyanosis, no calf tenderness Neuro: A&O x 3, no focal deficits noted, normal affect Skin: warm, dry, +pale Results & Data Results & Data Vital Signs (Past 12 Hours) Vital Signs Temp Pulse Resp BP Pulse Ox O2 Del Method 10/06/23 18:03 36.6 C 84 15 148/99 H 98 10/06/23 17:50 81 23 99 10/06/23 17:48 162/74 H 10/06/23 17:48 82 15 96 10/06/23 17:47 36.6 C 83 22 162/74 H 96 10/06/23 17:40 84 23 96 10/06/23 17:30 84 22 99 10/06/23 17:30 149/76 H 10/06/23 17:20 90 15 95 10/06/23 17:10 118 H 23 99 10/06/23 17:03 91 H 10/06/23 17:01 86 24 94 10/06/23 17:01 156/70 H 10/06/23 17:00 85 15 97 10/06/23 16:19 Room Air 10/06/23 15:39 36.0 C L 94 H 20 118/71 98 Room Air Laboratory Results Short CBC 10/06/23 Range/Units 16:09 WBC 4.03 L (4.8-10.8) K/ul Hgb 6.9 L* (14.0-18.0) g/dl Hct 21.6 L (42.0-52.0) % Plt Count 168 (130-400) K/uL BMP 10/06/23 16:09 Sodium 143 Potassium 4.0 Chloride 103 Carbon Dioxide 30 BUN 35 H Creatinine 2.12 H Glucose 121 H Calcium 9.7 Liver Function 10/06/23 Range/Units 16:09 Total Bilirubin 0.5 (0.2-1.0) mg/dl AST 14 (13-39) U/L ALT 10 (7-52) U/L Alkaline Phosphatase 103 (34-104) U/L Albumin 4.1 (3.4-5.0) gm/dl Diagnostic Findings Chest X-Ray 10/06/23 15:52 SINGLE VIEW CHEST CLINICAL HISTORY: Atypical chest pain. FINDINGS: An AP, portable, upright chest radiograph is compared to study dated 01/24/2023 and correlated with chest CT dated 07/05/2022. The examination is degraded by portable technique and apical lordotic positioning. The patient is status post midline sternotomy. The heart is enlarged with atherosclerotic c alcification of the thoracic aorta. The pulmonary vasculature is noncongested. Chronic interstitial thickening is similar to previous. There is mild bibasilar scarring/atelectasis. The lungs and pleural spaces are otherwise clear. No pneumothorax is seen. The skeletal structures are osteopenic. There are chronic/healed left-sided rib fractures. Degenerative change is noted in the shoulders and spine. Fusion hardware is noted in the cervical spine. IMPRESSION: Cardiomegaly with no active disease in the chest. ACT 112: Negative or not required by law. Electronically signed by: Gonzales Alvarado M.D. 10/06/2023 5:14 PM ECG Additional Comments: EKG: Poor tracing, affecting interpretation, rate 94, sinus rhythm, PAC, ST changes septal anterior inferior leads, ST depression anterior leads. Per my interpretation. Review of EKG from 01/[address] changes Supervising Physician Co-Signing Physician Notes Care coordinated with Amaya Castellano PA-C. Agree with above note. Patient seen and examined. Please refer to her notes for full details. Vital signs reviewed. Physical exam: General exam: Alert and awake. Very hard of hearing. Not in acute distress. CVS: S1 and S2 heard, regular rate and rhythm, no murmurs. RS: Clear to auscultation, no wheezing or crackles. ABD: Soft, bowel sounds present, nontender, no distention. SERVICE DESK DIRECTOR: alert and awake. obeys commands.. EXT: no erythema. Labs: Reviewed. Assessment and plan: 69-year-old male with past for CAD s/p CABG, chronic diastolic CHF, paroxysmal atrial fibrillation not on anticoagulation coagulation secondary to anemia, Parkinson disease, BPH and chronic anemia was brought in because of black stools going on for last 2 weeks and exertional shortness of breath and outpatient labs showed hemoglobin of 6.5 which is down from 11 couple of months ago. GI bleed Melena Heme positive stools Hemoglobin 6.5 PRBCs ordered Follow H&H IV PPI drip GI consult in a.m. History of CAD s/p CABG On beta-augie History of BPH On dutasteride CT abdomen pelvis showing enlarged prostate with bladder outlet obstruction Monitor for any retention and consider urology consult Other diagnosis and plan of care as Adolph Castellano PA-C. . Jeff sky MD. (5) CHF (congestive heart failure) Heart failure chronicity: acute Heart failure type: diastolic Qualified Code(s): I50.31 - Acute diastolic (congestive) heart failure
[2023-10-06] MEDS ORDERED: PANTOPRAZOLE BOLUS/DRIP IV STA (19:08)
[2023-10-06] MEDS ORDERED: FUROSEMIDE INJ 20 MG/2 ML VIAL IV ONE (19:09)
[2023-10-06] MEDS ORDERED: PANTOprazole 80 MG in DEXTROSE 5% 100 ML IV ONE (19:15)
[2023-10-06] MEDS ORDERED: METOPROLOL SUCC 25MG EXT REL TAB PO STA (19:22)
--- NOTE | 2023-10-06 20:28 | CT Scan Report ---
Exam(s): CT ABDOMEN + PELVIS Without Contrast EXAM: CT Abdomen and Pelvis Without Intravenous Contrast CLINICAL HISTORY: Reason for exam: r/o pancreatitis, melena. TECHNIQUE: Axial computed tomography images of the abdomen and pelvis without intravenous contrast. CTDI is 19.36 mGy and DLP is 954.43 mGy-cm. Automated exposure control was utilized for the study. A dose lowering technique was utilized adhering to the principles of ALARA. COMPARISON: CT abdomen pelvis September 08, 2022. FINDINGS: Lung bases: Unremarkable. No mass. No consolidation. Heart: Cardiomegaly. ABDOMEN: Liver: Unremarkable. Gallbladder and bile ducts: Unremarkable. No calcified stones. No ductal dilation. Pancreas: Unremarkable. No ductal dilation. Spleen: Unremarkable. No splenomegaly. Adrenals: Unremarkable. No mass. Kidneys and ureters: Unremarkable. No hydronephrosis or nephrolithiasis. Stomach and bowel: Diverticulosis, without acute diverticulitis. No small bowel obstruction. No free air. PELVIS: Appendix: No findings to suggest acute appendicitis. Bladder: Wall thickening of the urinary bladder, likely from bladder outlet obstruction. No stones. Reproductive: Enlarged prostate gland measures 6.3 cm. ABDOMEN and PELVIS: Intraperitoneal space: See above. Bones/joints: Sternotomy wires. Degenerative changes of the spine. RIGHT hip arthroplasty. No acute fracture. No dislocation. Soft tissues: Unremarkable. Vasculature: Atherosclerotic changes of the aorta. No abdominal aortic aneurysm. Lymph nodes: Unremarkable. No enlarged lymph nodes. IMPRESSION: 1. No hydronephrosis or nephrolithiasis. 2. Enlarged prostate gland measures 6.3 cm. 3. Wall thickening of the urinary bladder, likely from bladder outlet obstruction. 4. Diverticulosis, without acute diverticulitis. No small bowel obstruction. No free air. 5. No pancreatitis. Electronically signed by: Cam Felton MD 10/06/23 20:27 PM
[2023-10-06] MEDS: PANTOprazole 40 MG in DEXTROSE 5% MINI-B 100 ML IV SCH (20:44)
[2023-10-06] MEDS ORDERED: GLUCOSE 40% GEL 15 GM TUBE PO PRN (21:53)
[2023-10-06] MEDS ORDERED: CARBOHYDRATES FOR HYPOGLYCEMIA PO PRN (21:53)
[2023-10-06] MEDS ORDERED: GLUCAGON FOR INJ 1 MG VIAL SQ PRN (21:53)
[2023-10-06] MEDS ORDERED: POLYETHYLENE (MIRALAX) 17 GM PACK PO PRN (21:53)
[2023-10-06] MEDS ORDERED: ALBUTEROL HFA 8 GM INHALER INH PRN (21:53)
[2023-10-06] MEDS ORDERED: PROMETHAZINE HCL 6.25 MG in SODIUM CHLORIDE 0.9% 50 ML IV PRN (21:53)
[2023-10-06] MEDS ORDERED: GLUCOSE 10 TAB/TUBE PO PRN (21:53)
[2023-10-06] MEDS ORDERED: ACETAMINOPHEN 325 MG TAB PO PRN (21:53)
[2023-10-06] MEDS ORDERED: DEXTROSE 50% 50 ML SYRINGE IV PRN (21:53)
[2023-10-07] MEDS ORDERED: SODIUM CHLORIDE 0.9% 250 ML IV PRN (00:11)
[2023-10-07] MEDS: INSULIN ASPART PER UNIT CHARGE SC SCH ×5 (00:16→21:46)
[2023-10-07] MEDS: PANTOprazole 40 MG in DEXTROSE 5% MINI-B 100 ML IV SCH ×4 (02:01→21:46)
--- OUTSIDE RECORDS SUMMARY | 2023-10-07 03:01 | External Medical Summary ---
Author Name Unknown Address Unknown Organization [id number]:[facility] [place] [address] [place] [id number] Laboratory Report Ordering Provider Test Date Status AVNI LUIS 10/05/2023 11:28:18 Final Observation Date Value Abnormality Reference (Units ) Status Ferritin 10/05/2023 11:28:18 37 30-400 (ng /mL) Final Performing Location [facility] [place] [address] [place] [id number]
--- OUTSIDE RECORDS SUMMARY | 2023-10-07 03:01 | External Medical Summary ---
Author Name Unknown Address Unknown Organization [id number]:[facility] [place] [address] Laboratory Report Ordering Provider Test Date Status AVNI LUIS 10/05/2023 11:28:54 Final Observation Date Value Abnormality Reference (Units ) Status WBC, Total 10/05/2023 11:28:54 3.05 Below low normal 4. 00-10.80 (K/uL) Final RBC 10/05/2023 11:28:54 2.08 4.50-5.25 (M/uL) Final Hemoglobin 10/05/2023 11:28:54 6.5 Below low normal 14 .0-16.8 (g/dL) Final HCT 10/05/2023 11:28:54 21.3 Below low normal 40. 0-48.4 (%) Final MCV 10/05/2023 11:28:54 102.4 82.0-99.5 (fL) Final MCH 10/05/2023 11:28:54 31.3 27.0-34.0 (pg) Final MCHC 10/05/2023 11:28:54 30.5 32.0-36.0 (g/dL) Final RDW 10/05/2023 11:28:54 13.3 11.5-15.5 (%) Final Platelets 10/05/2023 11:28:54 152 140-400 (K /uL) Final MPV 10/05/2023 11:28:54 9.2 6.6-11.1 ( fL) Final Performing Location [facility] [place] [address]
--- OUTSIDE RECORDS SUMMARY | 2023-10-07 03:01 | External Medical Summary ---
Author Name Unknown Address Unknown Organization [id number]:[facility] [place] [address] Laboratory Report Ordering Provider Test Date Status TOBYAVNI 10/05/2023 11:28:54 Final Observation Date Value Abnormality Reference (Units ) Status SYNC LEUKOCYTES IN BLOOD BY AUTOMATED COUNT 10/05/2023 11:28:54 3.05 Below low normal 4.00-10.80 (K/uL) Final Segs 10/05/2023 11:28:54 67.1 40.0-75.0 (%) Final Lymphs % 10/05/2023 11:28:54 22.6 18.0-42.0 (%) Final Monos 10/05/2023 11:28:54 8.9 1.0-11.0 (%) Final Eosinophils 10/05/2023 11:28:54 0.7 0.0-6.0 (%) Final Basos 10/05/2023 11:28:54 0.7 0.0-2.0 (%) Final Absolute Segs 10/05/2023 11:28:54 2.05 1.80-7.70 (K/uL) Final Lymphs, absolute 10/05/2023 11:28:54 0.69 Below low normal 1.00-4.80 (K/ul) Final Monos, Abs 10/05/2023 11:28:54 0.27 0.00-1.10 (K/uL) Final Eos, Abs 10/05/2023 11:28:54 0.02 0.00-0.70 (K/uL) Final Basos, Abs 10/05/2023 11:28:54 0.02 0.00-0.20 (K/uL) Final Performing Location [facility] [address] [place] [address]
--- OUTSIDE RECORDS SUMMARY | 2023-10-07 03:02 | External Medical Summary | Summary of Care ---
Author Name Unknown Organization [facility] Address [address] [place] [address] Phone [phone] Care Team Providers Care Machinist Job Setter Name Role Phone Michael Hinton MD Primary Care Provider [phone] Reason for Visit * Reason Comments [facility]: Maintenance Encounter Details Date Type Department Care Team (Late st Contact Info) Description 09/07/2023 4:00 PM EST Home Visit [facility], [facility] [address] [facility] [place] [address] Mayuri Grant, RN [address] [facility] [place] [address] Allergies Active Allergy Reactions Criticality Noted Date Comments Fabiano Inhibitors Cough 06/09/2017 Carbidopa W-Levodopa 03/17/2021 Constipation Nsaids Rash 05/17/2018 Contraindicated per clip loading machine adjuster documented as of this encounter (statuses as of 09/07/2023) Medications Medication Sig Dispensed Refills Start Date End Date Status Glucose Blood (ONETOUCH VERIO) STRPIndications: Type 2 diabetes mellitus with hemoglobin A1c goal of less than 8.0% (HCC) Use up to 4 times a day E11.9 400 Strip 3 8 Active ONETOUCH DELICA LANCETS 33G MISCIndications: Type 2 diabetes mellitus with hemoglobin A1c goal of less than 8.0% (HCC) Use up to 4 times a day 400 Each 3 8 Active Dupixent 300 MG/2ML Subcutaneous Solution Prefilled Syringe (Dupilumab)Indic ations:Atopic dermatitis, unspecified type 1 syringe subcutaneously every other week 4 mL 3 2 Active Cyanocobalamin 1000 MCG Oral Tablet (Cyanocobalamin) Take 2 Tablets by mouth in the morning. 0 Active Benzonatate 100 MG Oral CapsuleIndicatio ns:Viral URI with cough Take 2 Capsules by mouth 3 times a day as needed for Cough. 30 Capsule 1 3 Active Levalbuterol Tartrate 45 MCG/ACT Inhalation Aerosol (Xopenex HFA)Indications: Pneumonia of left lower lobe due to infectious organism Inhale 1 Puff by mouth every 6 hours as needed for Wheezing. Or coughing spells 15 g 12 3 Active Acetaminophen 500 MG Oral Tablet Take 2 Tablets by mouth every 8 hours as needed. Take every morning 0 Active Lidocaine HCl 4 % External Cream Apply topically to affected area. Apply to Right knee every morning then as needed per package directions 0 Active Vitamin D (Cholecalciferol ) 25 MCG (1000 UT) Oral Capsule Take 1 Capsule by mouth every evening. 30 Capsule 0 3 Active Ferrous Sulfate 325 (65 Fe) MG Oral Tablet Take 1 Tablet by mouth daily with breakfast. 180 Tablet 1 3 Active Cephalexin 500 MG Oral Capsule Take 1 Capsule by mouth every evening. 30 Capsule 0 3 Active Pantoprazole Sodium 40 MG Oral Tablet Delayed Release (Protonix) TAKE ONE TABLET BY MOUTH EVERY DAY 90 Tablet 3 3 04/14/20 24 Active Metoprolol Succinate ER 25 MG Oral Tablet Extended Release 24 Hour (toPROL XL) TAKE ONE TABLET BY MOUTH EVERY MORNING 90 Tablet 3 3 03/20/20 24 Active buPROPion HCl ER (XL) 150 MG Oral Tablet Extended Release 24 Hour (Wellbutrin XL) TAKE ONE TABLET BY MOUTH EVERY DAY IN THE MORNING 100 Tablet 3 3 03/16/20 24 Active Amantadine HCl 100 MG Oral Capsule (Symmetrel) TAKE ONE CAPSULE BY MOUTH EVERY DAY WITH LUNCH 90 Capsule 3 3 02/16/20 24 Active Donepezil HCl 10 MG Oral Tablet (Aricept) TAKE ONE TABLET BY MOUTH EVERY DAY IN THE EVENING 90 Tablet 3 3 02/16/20 24 Active Escitalopram Oxalate 20 MG Oral Tablet (Lexapro) TAKE ONE TABLET BY MOUTH EVERY MORNING 90 Tablet 3 3 01/23/20 24 Active Torsemide 20 MG Oral Tablet (Demadex)Indicat ions:Nonrheumati c mitral valve regurgitation,Co ronary artery disease involving shoalwater coronary artery of shoalwater heart without angina pectoris,Paroxys mal atrial fibrillation (HCC),Stage 3b chronic kidney disease (HCC) Take 1 Tablet by mouth in the morning. 180 Tablet 3 3 Active DIURETIC TITRATION PLAN If no improvement on day 3, contact heart failure managing provider. 1 Each 0 3 Active metFORMIN HCl ER 500 MG Oral Tablet Extended Release 24 Hour (Glucophage XR) Take 1 Tablet by mouth daily. 100 Tablet 3 3 Active Chlorhexidine Gluconate 0.12 % Mouth/Throat Solution (Periogard)Indic ations:Canker sores oral,Dry mouth Swish and spit 15 mL in the morning and 15 mL before bedtime. 473 mL 0 3 Active Betamethasone Dipropionate 0.05 % External OintmentIndicati ons:Inflamed seborrheic keratosis APPLY TO SKIN LESIONS AND SCALP LESIONS UP TO TWO TIMES A DAY FOR NO LONGER THAN 2 WEEKS AT A TIME FOR ITCH. (THEN TAKE A 2 WEEK BREAK) 45 g 2 3 08/06/20 24 Active Dutasteride 0.5 MG Oral Capsule (Avodart) Take 1 Capsule by mouth in the morning. 90 Capsule 3 3 Active Dexamethasone 0.5 MG/5ML Oral Elixir (Decadron)Indica tions:Canker sores oral Take 5 mL by mouth in the morning and 5 mL at noon and 5 mL in the evening and 5 mL before bedtime. 237 mL 1 3 09/07/20 23 Discontinued documented as of this encounter (statuses as of 09/07/2023) Active Problems Problem Noted Date Diagnosed Date Paroxysmal atrial fibrillation 07/19/2023 History of cellulitis 05/02/2023 Last Assessment & Plan: Continues daily cephalexin 500mg for prevention Immunodeficiency 03/28/2023 Last Assessment & Plan: Secondary to Dupixent Chronic kidney disease, stage 3b 02/27/2023 Overview: Per CKD protocol Type 2 diabetes mellitus wit h stage 3b chronic kidney disease 02/27/2023 Overview: Per CKD protocol Flexural atopic dermatitis 11/29/2022 Last Assessment & Plan: Continue Dupixent Atrial fibrillation 10/10/2022 Last Assessment & Plan: Rate controlled -continue metoprolol succinate Not on AC d/t HUNTER and concern for bleeding Urge incontinence 08/24/2022 Hematuria, gross 08/24/2022 Overweight (BMI 25.0-29.9) 07/13/2022 Chronic diastolic heart fail ure secondary to coronary artery disease 07/13/2022 Hypertensive heart and kidne y disease with chronic diastolic congestive heart failure and stage 3b chronic kidney disease 05/16/2022 Last Assessment & Plan: "RED FLAG" HF Symptoms: o Leg Swelling (Examples: "I can't wear certain socks or shoes", "My pants feel tight") Medication Regimen: o Beta Sheldon Therapy: Metoprolol Succinate (ER) o FABIANO Inhibitor/ARB Therapy: No FABIANO/ARB/ARNI secondary to: cough o Diuretic therapy: Torsemide Self - Management Plan o Double dose of Torsemide for 3 days Exacerbation Plan o BMP o Pro-BNP Additional Comments: o Hypervolemic today--significant amt edema BLE. Unsure of wts are accurate as he is unsteady on the scale. DTP initiated and will follow up. Will recheck BNP and BMP on Thur with his other labs. Iron deficiency anemia 07/28/2021 Last Assessment & Plan: Followed closely by [facility] hematology. No identified cause of HUNTER. Weekly labs monitored by hem/onc. Most recent hgb stable 10.5. Type 2 diabetes mellitus wit h diabetic peripheral angiopathy without gangrene 06/21/2021 Last Assessment & Plan: Current Status: "Stable" for patient / At or near baseline Degree of Condition Awareness: Demonstrates very good awareness of condition, disease course, and prognosis "RED FLAG" Diabetic symptoms: o none Goal HgbA1c o <7 Diabetic Complications o Vascular (examples: PVD, PAD, CAD, CVA) Medication Regimen o Metformin DM Secondary Prevention o Moderate-High Intensity Statin Gastro-esophageal reflux disease without esophag itis 06/21/2021 Last Assessment & Plan: Continue pantoprazole Recurrent cellulitis of lower extremity 02/19/20 21 Last Assessment & Plan: On prophylactic Keflex 500 mg daily Wandering atrial pacemaker 02/18/2021 Last Assessment & Plan: Irregular today but rate controlled -? Pt not on any AC. Will d/w team Dementia associated with Parkinson's disease Last Assessment & Plan: Continue Aricept 10 mg daily BPH with obstruction/lower urinary tract symptom s 01/02/2019 Last Assessment & Plan: Pt unsure if he wants to proceed with BPH. He has intermittent hesitancy, nocturia and frequency but does not feel his symptoms are significant enough to warrant surgery. Also does not want kee for a week post-op since he had bad experience in the past. Aware PCP would like him to have cardiology pre-op clearance prior to surgery. HTN, goal below 130/80 07/26/2018 Type 2 diabetes mellitus wit h hemoglobin A1c goal of less than 8.0% 07/26/2018 Overview: Last hgba1c 5.5 in 02/2022 -continue metformin Primary osteoarthritis of both knees 03/21/2018 Coronary artery disease invo lving shoalwater coronary artery of shoal[place] heart without angina pectoris 03/21/2018 Last Assessment & Plan: Stable, Continue metoprolo, atorvastatin No ASA d/t history severe anemia--GI bleeding? Cervical spinal stenosis 08/18/2017 FABIANO (generalized anxiety disorder) 08/18/2017 Last Assessment & Plan: Symptoms stable -continue Lexapro Primary parkinsonism 08/18/2017 Last Assessment & Plan: Baseline -Continue amantadine Followed by Dr. Shannon Bowman via telemedicine every 6 months S/P CABG x 3 08/18/2017 FABIANO inhibitor intolerance 12/04/2015 Dyslipidemia 08/09/2002 documented as of this encounter (statuses as of 09/07/2023) Resolved Problems Problem Noted Date Diagnosed Date Resolved Date Viral upper respiratory tract infection 08/08/2022 11/29/2022 Last Assessment & Plan: -resp panel -presume covid + -paxlovid, steroids Hx of Salmonella infection 05/16/2022 0 07/13/2022 Hematuria 05/16/2022 05/20/2022 Hypertensive kidney disease with stage 3a chronic kidney disease 04/20/2022 05/20/2022 Type 2 diabetes mellitus wit h stage 3a chronic kidney disease, without long-term current use of insulin 06/21/2021 03/01/2023 Overview: Per CKD protocol Last Assessment & Plan: Metformin 500 mg daily Hemoglobin AIC Results: Lab Results Component Value Date/Time HEMOGLOBIN A1C - [facility] 5.5 03/22/2022 10:55 AM HEMOGLOBIN A1C - [facility] 5.7 (H) 09/14/2021 11:12 AM HEMOGLOBIN A1C - [facility] 6.7 (H) 06/17/2021 10:10 AM HEMOGLOBIN A1C - [facility] 6.3 (H) 03/18/2020 07:00 AM HEMOGLOBIN A1C - [facility] 6.4 (H) 09/09/2019 07:46 AM HEMOGLOBIN A1C - [facility] 6.4 (H) 03/08/2019 07:14 AM ] Major depressive disorder, s kevin episode, moderate 06/21/2021 05/16/2022 Arthropathy of facet joint 06/21/2021 0 05/20/2022 Open wound of heel, right, s ubsequent encounter 04/27/2021 11/02/2021 DDD (degenerative disc disease), cervical 02/18/2021 04/27/2021 Chronic kidney disease, stage 3a 02/01/2021 03/01/2023 Overview: Per CKD protocol Dementia with Lewy bodies (CODE) 07/07/2020 07/15/2020 Type 2 diabetes mellitus wit h diabetic dermatitis 01/31/2019 02/18/2021 Type 2 diabetes mellitus wit h diabetic peripheral angiopathy without gangrene 01/31/2019 0 03/27/2020 Seborrheic dermatitis 10/26/20182021 Cognitive dysfunction 08/23/20182019 Prediabetes 06/29/2018 07/26/2018 Epidermal cyst 09/21/2017 10/27/2017 Dyslipidemia, goal LDL below 70 03/20/2013 06/09/2017 FABIANO inhibitor intolerance 11/13/2012 Overview: See scanned document from 11/13/[address] [facility]. 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y lesion 10/15/2012 08/23/2018 Dyslipidemia, goal LDL below 100 08/16/2012 08/16/2012 Spinal stenosis, unspecified region other than cervical 02/28/2011 08/18/2017 Medullary sponge kidney 01/05/201003/23 Lumbago 01/05/2010 08/18/2017 Overview: Spondylithiasis and diffuse DJD Primary localized osteoarthrosis, lower leg 02/16/2009 08/18/2017 Irritable bowel syndrome 02/11/2008 Impotence of organic origin 02/11/2008 08/18/2017 ADVANCE DIRECTIVE INFORMATION 07/28/2005 01/10/2014 Overview: No, Advance Directive brochure given to patient. HTN, goal below 150/90 08/09/200207/26 Other psoriasis 08/09/2002 10/19/2015 Screening for prostate cancer 08/09/2002 11/03/2008 documented as of this encounter (statuses as of 09/07/2023) Immunizations Name Administration Dates Next Due COVID-19 mRNA, LNP-s, No Pre serve, 2-Dose Series (Tappx) 11/03/2021,12/19/2020,11/28/2020 Covid-19 Ad26, Single Dose (Soy/J&J) 12/19/2020,11/28/2020 DTaP Dipth/Tet/Acell Pertussis (Infanrix), Peds 10/24/2019 Pneumococcal Conjugate Vacc, 13 Valent (Prevnar) 04/27/2016 Pneumococcal Polysaccharide PPV23 (Pneumovax) 08/27/2009 SEASONAL INFLUENZA, PF, 6 M & Above, IM , (FLULAVAL or FLUZONE) 07/31/2019,07/04/2018,07/26/2017 Season Influenza, Quad, PF, Adjuvanted, 65+ Yrs, IM (FLUAD) 07/07/2020 Seasonal Influenza Virus Vac cine, Unspecified Formulation 07/07/2020,07/31/2019,07/04/2018,01/2017,08/23/2016,07/25/2016,07/03/20 15,07/14/2014,07/06/2013,07/13/2012,0 07/15/2011,07/27/2010,07/02/2009,09/03,08/28/2007,08/28/2006, 5 Seasonal Influenza, QUAD, wi th Preserv, 6 mons & Above, 0.5 mL, IM 07/23/2021,07/07/2020 Seasonal Influenza, Quadriva lent Hd (Fluzone Hd) 08/02/2023,07/13/2022 Seasonal Influenza, Quadriva lent, No Preserve, IM 07/25/2016 Seasonal Influenza, Split, I IV3, With Preserve, Inj 08/23/2016,07/03/2015,07/14/2014,06/23,07/13/2012,07/15/2011,07/27/20 10,07/02/2009,09/03/2008,08/28/2007,1 10/28/2005 07/06/2014 TD, Preservative Free 05/27/1997 TDAP (age 10 and older)(Boostrix) 10/24/2019 TDAP (age 11 and older)(Adacel) 11/03/2008 Varicella Zoster Vaccine (Adult) 10/24/2019,08/23 Zoster Vaccine Recombinant (Shingrix) 10/24/2019 ,07/31/2019 documented as of this encounter Social History Tobacco Use Types Packs/Day Years Used Date Smoking Tobacco: Never Smokeless Tobacco: Never Alcohol Use Standard Drinks/Week Comments No 0 (1 standard drink = 0.6 oz pur e alcohol) PHQ-2 Answer Date Recorded PHQ Adult Total Score 1 11/02/2022 Hunger Vital Sign Answer Date Recorded Within the past 12 months, y ou worried that your food would run out before you got the money to buy more. Never true 11/02/19 23 Within the past 12 months, t he food you bought just didn't last and you didn't have money to get more. Never true 11/02/2022 Sex and Gender Information Value Date Recorded Sex Assigned at Male 01/31/2019 7:38 AM EDT Gender Identity Male 01/31/2019 7:38 AM EDT Sexual Orientation Straight 01/31/2019 7: 38 AM EDT Job Start Date Occupation Industry Not on file Not on file Not on file documented as of this encounter Last Filed Vital Signs Vital Sign Reading Time Taken Comments Blood Pressure 152/78 09/07/2023 1:56 PM EST Pulse 71 09/07/2023 1:56 PM EST Temperature 36.8 C (98.3 F) 09/07/2023 1:56 PM ES T Respiratory Rate 16 09/07/2023 1:56 PM EST Oxygen Saturation 98% 09/07/2023 1:56 PM EST Inhaled Oxygen Concentration - - Weight 75.6 kg (166 lb 9.6 oz) 09/07/2023 1:56 P M EST Height - - Body Mass Index 27.72 12/01/2022 10:58 AM EST documented in this encounter Progress Notes * Mayuri Grant RN - 09/07/2023 1:11 PM EST Images from the original note were not included. 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 Hematology for anemia mgmt Had iron infusion yesterday Recent f/u with Cardiology - no changes made Wears support hose intermittently but not wearing today, states had on yesterday Wearing o2 at night continues to manage meds, is able to give extra torsemide 20mg daily if needed, has not neededfor approx 3 weeks, knows to call [facility] if not effective Is compliant with low sodium diet Recommendation: Continue with close f/u with [facility] Hematology Physical Exam: BP 152/78 | Pulse 71 | Temp 36.8 C (98.3 F) | Resp 16 | Wt 75.6 kg (166 lb 9.6 oz) | SpO2 98% |BMI 27.72 kg/m | BSA 1.86 m Pain 0 Physical Exam Constitutional: General: He is not in acute distress. HENT: Head: Normocephalic and atraumatic. Cardiovascular: Rate and Rhythm: Normal rate. Rhythm irregular. Pulses: Normal pulses. Heart sounds: Normal heart sounds. Pulmonary: Effort: Pulmonary effort is normal. Breath sounds: Normal breath sounds. Abdominal: General: Bowel sounds are normal. Palpations: Abdomen is soft. Musculoskeletal: Right lower leg: Edema (+1) present. Left lower leg: Edema (+2 pitting) present. Skin: General: Skin is warm and dry. Neurological: Mental Status: He is alert and oriented to person, place, and time. Mental status is at baseline. Gait: Gait abnormal. Problems/Symptoms: Review of Systems Constitutional: Positive for fatigue (at baseline). HENT: Positive for hearing loss. Eyes: Negative. Respiratory: Positive for shortness of breath (MUSTAFA - at baseline). Cardiovascular: Positive for leg swelling. Gastrointestinal: Negative. Endocrine: Negative. Genitourinary: Negative. Musculoskeletal: Positive for arthralgias and gait problem (poor balance). Skin: Negative. Allergic/Immunologic: Negative. Hematological: Negative. Psychiatric/Behavioral: Negative. Medication Reconciliation: (See medication list) Does patient take medications as ordered: Yes Patient Well Being: No change in living sitation [facility] Completed this Visit: No. Routine visit Advanced Care Planning: Living Will. Reinforcement/Education: Educated on home safety: Create a fall proof home Clear floors of clutter, loose wires, throw rugs, and cords. Make sure halls, stairways, and entrances are well lit. Install a nightlight in your bedroom, hallway and bathroom. Install grab bars or handrails in the bathroom and on stairs. Use a non-skid tub/shower mat. Avoid climbing on a chair; instead use a step stool with a high handrail. Keep sidewalks and steps in good repair Keep steps and sidewalks free of snow and ice. Using aids to support and prevent falls If you have poor balance or have fallen in the past, consider additional support such as a cane or walker. Use a cane with good support and that is the proper length for you. Use a walker if a cane doesnt provide enough support. Avoid medications that increase the risk of falling by causing dizziness, change in sensation or slowed reflexes. Certain medicines may cause falls - blood pressure pills, heart medicines, water pills, or sleepingpills. Be sure to understand each medicine that you are taking and any side effects that may occur. Improve your balance and flexibility with muscle strengthening exercises. Ask your health care provider for some exercises that will be right for you. Reviewed HF symptom monitoring: -Weigh self daily in am, post-void and record -Do not add salt to food, avoid foods high in sodium -Limit fluids to 2 liters per day -Report the following: ->2 lb weight gain in one day or 5 lbs in a week to PCP -increased edema in feet, abdomen or hands -increased SOB and cough, especially if at night -increased fatigue or vertigo Reinforced safety education and fall prevention. and Reinforced medication regimen. Timing., Dosing., and Purspose. Treatment/Plan: apap 1000mg qam. And q8h prn - R knee pain Aspercreme with Lidocaine qam - R knee pain [facility] Scales ordered 02/28/23 Dry Wt as of 02/28/23: 179lbs Order placed for mobile phlebotomy to draw weekly cbcd and ferritin, message to Amy Tyler LPN to fax to Dr. Camacho weekly O2 2lnc q - Adonay's - [phone], wear at hs and during day in recliner (naps frequently) Fall precautions-use walker at all time Elevate bilateral LE when sitting in recliner Tubigrip to LE's daily Low Na diet, High protein, low sugar diet Patient's Goals of Care: Use cane instead of walker Have more energy "To do my yardwork" Patient's 'Red Flags': Wt increased to 184lbs falls Increased edema Increased MUSTAFA Home Interventions Provided: Reinforced current Plan of Care, including self-management and medication regimen Updated Exacerbation Plan Patient Needs to Remember: Call [facility] with red flags Referrals Needed: Other none Follow Up: Is there cellular connectivity/connectivity in the home? Yes Does the patient have internet in the home? Yes Patient encouraged to call the intake phone number for all urgent but not emergent issues. Is the patient new to [facility] within the last 30 days? No, Assess appropriateness for upcoming telehealth visits. Cancel telehealth visits & schedule home visit with care child study team director(s)as indicated. Provider is in agreement with Plan of Care: Yes Scheduled to follow up with patient in one month with Triage Nurse call. Mayuri Grant RN 09/07/2023 1:11 PM documented in this encounter Plan of Treatment Upcoming Encounters Date Type Department Care Team (Late st Contact Info) Description 09/12/2023 8:30 AM EST Laboratory Lab Mobile Phlebotomy [facility] [address] [place] [address] [facility] [address] [place] [address] 09/21/2023 8:00 AM EST Laboratory Lab Mobile Phlebotomy [facility] [address] [place] [address] [facility] [address] [place] [address] 09/21/2023 1:30 PM EST Office Visit Nephrology, Melissa [address] [place] [address] ZeNataly bailey PA-C [address] [place] [address] 09/28/2023 8:00 AM EST Laboratory Lab Mobile Phlebotomy [facility] [address] [place] [address] [facility] [place] [address] [place] [address] 10/05/2023 8:00 AM EST Laboratory Lab Mobile Phlebotomy [facility] [address] [place] [address] [facility] [place] [facility] Mobile Home Draw [address] [place] [address] 10/05/2023 12:30 PM EST Scheduled Telephone [facility], [address] [address] [facility] Nurse Triage [address] [place] [address] 10/09/2023 9:30 AM EST Scheduled Telephone [facility], [facility] [address] [place] [address] [facility] Nurse Triage [address] [place] [address] 10/12/2023 8:00 AM EST Laboratory Lab Mobile Phlebotomy [facility] [address] [place] [address] [facility] [place] [facility] Mobile Home Draw [address] [place] [address] 10/19/2023 8:00 AM EST Laboratory Lab Mobile Phlebotomy [facility] [address] [place] [address] [facility] [place] [facility] Mobile Home Draw [address] [place] [address] 11/03/2023 2:00 PM EST Nurse Only [facility] [address] [facility] [place] [address] Jeronimo Nurse [facility] [address] [facility] [place] [address] 03/11/2024 3:15 PM EDT Office Visit Urology, Bernadette Bert[facility] [address] [facility] [place] [address] Kalpesh Funse MD [address] [place] [address] Scheduled Procedures Name Priority Associated Diagnoses Date/Ti me COLONOSCOPY FLEXIBLE PROXIMAL DIAGNOSTIC Recall History of colon polyps Health Maintenance Due Date Last Done Comments Hepatitis C Screening 1963 Hepatitis B (1 of 3 - Risk 3-dose series) 2004 Diabetic Foot Exam 03/27/2021 03/27/2020, 08/23/2018 COVID-19 Vaccine ( season) 2023 11/03/2021, 12/19/2020, 12/19/2020, Additional history exists HbA1c 10/12/2023 04/12/2023, 03/2023, 03/22/2022, Additional history exists Diabetic Eye Exam 11/01/2023 11/01/2022, , 08/04/2011, Additional history exists Depression Screening 11/02/2023 11/02/2022 GFR 11/04/2023 05/04/2023, 03/23, 03/16/2023, Additional history exists Albumin/Creatinine Ratio 12/27/2023 023, 03/08/2019, 04/09/2014 CKD PHOS USE SMARTSET [id number] 12/27/2023 12/26/2022, 0 06/21/2021 CKD HGB USE SMARTSET [id number] 09/07/202409/07, 09/07/2023, 08/31/2023, Additional history exists COLONOSCOPY-EVERY 3 YRS AGES 18-100 09/12/2025 09/12/2022, 07/10/2020, 03/24/2015, Additional history exists DTaP,Tdap,and Td Vaccines (4 - Td or Tdap) 10/24/2029 10/24/2019, 10/24/2019, 11/03/2008, Additional history exists Pneumococcal Vaccine: 65+ Years Completed 04/27/2016, 08/27/2009 Zoster Vaccines Completed 10/24/2019, 11/2019, 07/31/2019, Additional history exists Influenza Vaccine (FLU shot) Completed 08/2023, 07/13/2022, 07/23/2021, Additional history exists GARDASIL-HPV IMMUNIZATION SERIES Aged Out No longer eligible based on patient's age to complete this topic MENINGOCOCCAL (MENACTRA/MENVEO) Aged Out No longer eligible based on patient's age to complete this topic documented as of this encounter Medical Devices Implanted Type Area It Audit Manager Device Identifier Shelf Expiration Date Model / Serial / Lot Lens Intraoc 22.5 - [id number] - [id number] Implanted:Qty: 1 on 05/22/2018 by Jasbir Maurer MD at OR [facility] Right: Eye [employer] 11/22/2022 [id number] / [id number] / [id number] Lens Intraoc 21.0 - [id number] - [id number] Implanted:Qty: 1 on 06/05/2018 by Jasbir Maurer MD at OR [facility] Left: Eye [employer]OM[employer] 12/20/2022 [id number] / [id number] / documented as of this encounter Advance Directives Latest Code Status on File Code Status Date Activated Date Inactivated Comments Full Code 06/05/2018 10:29 AM 06/05/2018 4:37 PM This order reflects the patients wishes and were consensually agreed upon. Code Status History Code Status Date Activated Date Inactivated Comments Full Code 05/22/2018 10:46 AM 05/22/2018 5:28 PM This order reflects the patients wishes and were consensually agreed upon. Healthcare Agents on File Name Relationship Healthcare Agent [facility] p Communication Ashley Jose Spouse Health Care Power of Attor mayela Care Teams Machinist Job Setter Relationship Specialty Start Date End Date Michael Hinton MD [address] [place] [address] PCP - General Family Medicine 08/07/17 documented as of this encounter
--- OUTSIDE RECORDS SUMMARY | 2023-10-07 03:02 | External Medical Summary ---
Author Name Unknown Address Unknown Organization [id number]:[facility] [place] [address] [place] [address] Laboratory Report Ordering Provider Test Date Status AVNI LUIS 09/21/2023 10:10:00 Final Observation Date Value Abnormality Reference (Units ) Status SYNC LEUKOCYTES IN BLOOD BY AUTOMATED COUNT 09/21/2023 10:10:00 3.12 Below low normal 4.00-10.80 (K/uL) Final Segs 09/21/2023 10:10:00 67.1 40.0-75.0 (%) Final Lymphs % 09/21/2023 10:10:00 23.7 18.0-42.0 (%) Final Monos 09/21/2023 10:10:00 8.3 1.0-11.0 (%) Final Eosinophils 09/21/2023 10:10:00 0.6 0.0-6.0 (%) Final Basos 09/21/2023 10:10:00 0.3 0.0-2.0 (%) Final Absolute Segs 09/21/2023 10:10:00 2.09 1.80-7.70 (K/uL) Final Lymphs, absolute 09/21/2023 10:10:00 0.74 Below low normal 1.00-4.80 (K/ul) Final Monos, Abs 09/21/2023 10:10:00 0.26 0.00-1.10 (K/uL) Final Eos, Abs 09/21/2023 10:10:00 0.02 0.00-0.70 (K/uL) Final Basos, Abs 09/21/2023 10:10:00 0.01 0.00-0.20 (K/uL) Final Performing Location [facility] [address] - [address] [place] [address]
--- OUTSIDE RECORDS SUMMARY | 2023-10-07 03:02 | External Medical Summary ---
Author Name Unknown Address Unknown Organization [id number]:[facility] [address] - [address] [place] [address] Laboratory Report Ordering Provider Test Date Status AVNI LUIS 09/28/2023 11:26:00 Final Observation Date Value Abnormality Reference (Units ) Status WBC, Total 09/28/2023 11:26:00 3.94 Below low normal 4. 00-10.80 (K/uL) Final RBC 09/28/2023 11:26:00 2.36 4.50-5.25 (M/uL) Final Hemoglobin 09/28/2023 11:26:00 7.8 Below low normal 14 .0-16.8 (g/dL) Final HCT 09/28/2023 11:26:00 24.5 Below low normal 40. 0-48.4 (%) Final MCV 09/28/2023 11:26:00 103.8 82.0-99.5 (fL) Final MCH 09/28/2023 11:26:00 33.1 27.0-34.0 (pg) Final MCHC 09/28/2023 11:26:00 31.8 32.0-36.0 (g/dL) Final RDW 09/28/2023 11:26:00 13.3 11.5-15.5 (%) Final Platelets 09/28/2023 11:26:00 180 140-400 (K /uL) Final MPV 09/28/2023 11:26:00 9.2 6.6-11.1 ( fL) Final [facility] - [address] [place] [address]
--- OUTSIDE RECORDS SUMMARY | 2023-10-07 03:02 | External Medical Summary | Summary of Care ---
Author Name Unknown Organization [facility] Address [address] [facility] [address] Phone [phone] Care Team Providers Care Sap Pp Consultant Name Role Phone Michael Hinton MD Primary Care Provider [phone] Reason for Visit * Reason Onset Date Comments [facility]: Maintenance 08/10/2023 Encounter Details Date Type Department Care Team (Late st Contact Info) Description 08/10/2023 Telephone [facility], [facility] [address] [place] [address] Peggy De, RN [address] [place] [address] [facility]: Maintenance Allergies Active Allergy Reactions Criticality Noted Date Comments Fabiano Inhibitors Cough 06/09/2017 Carbidopa W-Levodopa 03/17/2021 Constipation Nsaids Rash 05/17/2018 Contraindicated per electrician telephone documented as of this encounter (statuses as of 09/18/2023) Medications Medication Sig Dispensed Refills Start Date End Date Status Glucose Blood (ONETOUCH VERIO) STRPIndications: Type 2 diabetes mellitus with hemoglobin A1c goal of less than 8.0% ([facility]) Use up to 4 times a day E11.9 400 Strip 3 08/29/20 18 Active ONETOUCH DELICA LANCETS 33G MISCIndications: Type 2 diabetes mellitus with hemoglobin A1c goal of less than 8.0% (HCC) Use up to 4 times a day 400 Each 3 08/29/20 18 Active Dupixent 300 MG/2ML Subcutaneous Solution Prefilled Syringe (Dupilumab)Indic ations:Atopic dermatitis, unspecified type 1 syringe subcutaneously every other week 4 mL 3 12/16/19 22 Active Cyanocobalamin 1000 MCG Oral Tablet (Cyanocobalamin) Take 2 Tablets by mouth in the morning. 0 Active Benzonatate 100 MG Oral CapsuleIndicatio ns:Viral URI with cough Take 2 Capsules by mouth 3 times a day as needed for Cough. 30 Capsule 1 02/26/20 23 Active Levalbuterol Tartrate 45 MCG/ACT Inhalation Aerosol (Xopenex HFA)Indications: Pneumonia of left lower lobe due to infectious organism Inhale 1 Puff by mouth every 6 hours as needed for Wheezing. Or coughing spells 15 g 12 03/10/20 23 Active Acetaminophen 500 MG Oral Tablet Take [...] by mouth every evening. 30 Capsule 0 03/28/20 23 Active Ferrous Sulfate 325 (65 Fe) MG Oral Tablet Take 1 Tablet by mouth daily with breakfast. 180 Tablet 1 03/28/20 23 Active Cephalexin 500 MG Oral Capsule Take 1 Capsule by mouth every evening. 30 Capsule 0 03/28/20 23 Active Pantoprazole Sodium 40 MG Oral Tablet Delayed Release (Protonix) TAKE ONE TABLET BY MOUTH EVERY DAY 90 Tablet 3 04/15/20 23 024 Active Metoprolol Succinate ER 25 MG Oral Tablet Extended Release 24 Hour (toPROL XL) TAKE ONE TABLET BY MOUTH EVERY MORNING 90 Tablet 3 03/21/20 23 024 Active buPROPion HCl ER (XL) 150 MG Oral Tablet Extended Release 24 Hour (Wellbutrin XL) TAKE ONE TABLET BY MOUTH EVERY DAY IN THE MORNING 100 Tablet 3 03/17/20 23 024 Active Amantadine HCl 100 MG Oral Capsule (Symmetrel) TAKE ONE CAPSULE BY MOUTH EVERY DAY WITH LUNCH 90 Capsule 3 02/17/20 23 024 Active Donepezil HCl 10 MG Oral Tablet (Aricept) TAKE ONE TABLET BY MOUTH EVERY DAY IN THE EVENING 90 Tablet 3 02/17/20 23 024 Active Escitalopram Oxalate 20 MG Oral Tablet (Lexapro) TAKE ONE TABLET BY MOUTH EVERY MORNING 90 Tablet 3 01/24/20 23 024 Active Torsemide 20 MG Oral Tablet (Demadex)Indicat ions:Nonrheumati c mitral valve regurgitation,Co ronary artery disease involving [place] coronary artery of [place] heart without angina pectoris,Paroxys mal atrial fibrillation (HCC),Stage 3b chronic kidney disease (HCC) Take 1 Tablet by mouth in the morning. 180 Tablet 3 05/02/20 23 Active DIURETIC TITRATION PLAN If no improvement on day 3, contact heart failure managing provider. 1 Each 0 05/02/20 23 Active metFORMIN HCl ER 500 MG Oral Tablet Extended Release 24 Hour (Glucophage XR) Take 1 Tablet by mouth daily. 100 Tablet 3 06/23/20 23 Active Chlorhexidine Gluconate 0.12 % Mouth/Throat Solution (Periogard)Indic ations:Canker sores oral,Dry mouth Swish and spit 15 mL in the morning and 15 mL before bedtime. 473 mL 0 07/06/20 23 Active Betamethasone Dipropionate 0.05 % External OintmentIndicati ons:Inflamed seborrheic keratosis APPLY TO SKIN LESIONS AND SCALP LESIONS UP TO TWO TIMES A DAY FOR NO LONGER THAN 2 WEEKS AT A TIME FOR ITCH. (THEN TAKE A 2 WEEK BREAK) 45 g 2 08/07/20 23 024 Active Dutasteride 0.5 MG Oral Capsule (Avodart) TAKE ONE CAPSULE BY MOUTH EVERY MORNING 90 Capsule 3 12/13/19 23 023 Discontinued(Re fill) Dexamethasone 0.5 MG/5ML Oral Elixir (Decadron)Indica tions:Canker sores oral Take 5 mL by mouth in the morning and 5 mL at noon and 5 mL in the evening and 5 mL before bedtime. 237 mL 1 07/06/20 23 023 Discontinued documented as of this encounter (statuses as of 09/18/2023) Active Problems Problem Noted Date Diagnosed Date [...] Last Assessment & Plan: Followed closely by [facility] hematology. No identified cause of HUNTER. Weekly [...] knees 03/21/2018 Coronary artery disease invo lving [place] coronary artery of [place] heart without angina pectoris 03/21/2018 Last Assessment [...] as of this encounter (statuses as of 09/18/2023) Resolved Problems Problem Noted Date Diagnosed Date [...] scanned document from 11/13/[address] [facility]. 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y [...] as of this encounter (statuses as of 09/18/2023) Immunizations Name Administration Dates Next Due COVID-19 mRNA, LNP-s, No Pre serve, 2-Dose Series (RealScout) 11/03/2021,12/19/2020,11/28/2020 Covid-19 Ad26, Single Dose (Soy/J&J) 12/19/2020,11/28/2020 [...] on file documented as of this encounter Miscellaneous Notes * Telephone Encounter - Peggy De RN - 08/10/2023 3:53 PM EDT Berny, You have recently seen pt. Is there anything you could recommend for his mouth ulcers? Thank you! * Telephone Encounter - Michael Hinton MD - 08/10/2023 12:19 PM EDT I havent been managing any of his care since back in November so I cannot comment. * Telephone Encounter - Peggy De RN - 08/10/2023 11:33 AM EDT Good morning, Pt seen for home visit today. Reviewing meds and see that Dexamethasone is still on med list. I do not see a stop date on the prescription. states he took until gone and is no longer taking it. Was the dexamethasone to be for a set time frame? Also he reports that he continues to have mouth sores. Is there something else he could try? Triamcinolone paste? Nystatin? Please advise with any further recommendations. Thank you! documented in this encounter Plan of Treatment Upcoming Encounters Date Type Department Care Team (Late st Contact Info) Description 09/21/2023 8:00 AM EST Laboratory [facility] [address] [place] [address] [facility] Mobile Home Draw [address] [place] [address] 09/21/2023 1:30 PM EST Office Visit Nephrology, [facility] [address] [facility] [place] [address] Nataly Stone PA-C [address] [facility] [place] [address] 09/28/2023 8:00 AM EST Laboratory [facility] [address] [place] [address] [facility] Draw [address] [place] [address] 10/05/2023 8:00 AM EST Laboratory [facility] [address] [place] [address] [facility] Home Draw [address] [place] [address] 10/05/2023 12:30 PM EST Scheduled Telephone [facility], [facility] [address] [facility] [place] [address] [facility] Nurse Triage [facility] [place] [address] 10/09/2023 9:30 AM EST Scheduled Telephone [facility], [facility] 132 [facility] [place] [address] [facility] Nurse Triage 132 [facility] [place] [address] 10/12/2023 8:00 AM EST Laboratory [facility] [address] [place] [address] [facility] Mobile Home Draw [address] [place] [address] 10/19/2023 8:00 AM EST Laboratory [facility] [address] [place] [address] [facility] Mobile Home Draw [address] [place] [address] 11/03/2023 2:00 PM EST Nurse Only Ancillary [facility] [address] [place] [address] [facility], Nurse Annual Wellness [address] [address] 03/11/2024 3:15 PM EDT Office Visit Urology, [facility] [address] [place] [address] Kalpesh Funes MD [address] [id number] Scheduled Procedures Name Priority Associated Diagnoses Date/Ti me COLONOSCOPY FLEXIBLE PROXIMAL DIAGNOSTIC Recall History of colon polyps Health Maintenance Due Date Last Done Comments Hepatitis C Screening 1963 Hepatitis B (1 of 3 - Risk 3-dose series) 2004 Diabetic Foot Exam 03/27/2021 03/27/2020, 08/23/2018 COVID-19 Vaccine ( season) 2023 11/03/2021, 12/19/2020, 12/19/2020, Additional history exists HbA1c 10/12/2023 04/12/2023, 03/0 03/2023, 03/22/2022, Additional history exists Diabetic Eye Exam 11/01/2023 11/01/2022, , 08/04/2011, Additional history exists Depression Screening 11/02/2023 11/02/2022 GFR 11/04/2023 05/04/2023, 03/23, 03/16/2023, Additional history exists Albumin/Creatinine Ratio 12/27/2023 023, 03/08/2019, 04/09/2014 CKD PHOS USE SMARTSET 67340 12/27/2023 12/26/2022, 0 06/21/2021 CKD HGB USE SMARTSET 58148 09/12/202409/12, 09/12/2023, 09/07/2023, Additional history exists COLONOSCOPY-EVERY 3 YRS AGES [...] this encounter Medical Devices Implanted Type Area Gill Box Fixer Device Identifier Shelf Expiration Date Model / Serial / Lot Lens Intraoc 22.5 - [id number] - [id number] Implanted:Qty: 1 on 05/22/2018 by Jasbir Maurer MD at OR [facility] Right: Eye [employer] 11/22/2022 [id number] / [id number] / [id number] Lens Intraoc 21.0 - [id number] - [id number] Implanted:Qty: 1 on 06/05/2018 by Jasbir Maurer MD at OR [facility] Left: Eye BAUSCH [employer] LOMB 12/20/2022 [id number] / [id number] / documented as of this encounter Advance [...] Agents on File Name Relationship Healthcare Agent Relationshi p Communication Ashley Jose Spouse Health Care Power of Attor mayela Care Teams Sap Pp Consultant Relationship Specialty Start Date End Date Michael Hinton MD [address] [place] [address] PCP - General Family Medicine 08/07/17 documented as of this encounter
--- OUTSIDE RECORDS SUMMARY | 2023-10-07 03:02 | External Medical Summary ---
Author Name Unknown Address Unknown Organization K0G:[facility] [address] [place] [address] Laboratory Report Ordering Provider Test Date Status AVNI LUIS 09/12/2023 10:47:00 Final Observation Date Value Abnormality Reference (Units ) Status WBC, Total 09/12/2023 10:47:00 4.55 4.00-10.8 0 (K/uL) Final RBC 09/12/2023 10:47:00 2.66 4.50-5.25 (M/uL) Final Hemoglobin 09/12/2023 10:47:00 9.3 Below low normal 14 .0-16.8 (g/dL) Final HCT 09/12/2023 10:47:00 28.7 Below low normal 40. 0-48.4 (%) Final MCV 09/12/2023 10:47:00 107.9 82.0-99.5 (fL) Final MCH 09/12/2023 10:47:00 35.0 27.0-34.0 (pg) Final MCHC 09/12/2023 10:47:00 32.4 32.0-36.0 (g/dL) Final RDW 09/12/2023 10:47:00 14.3 11.5-15.5 (%) Final Platelets 09/12/2023 10:47:00 144 140-400 (K /uL) Final MPV 09/12/2023 10:47:00 9.3 6.6-11.1 ( fL) Final Performing Location [facility] [address] - [address] [place] [address]
--- OUTSIDE RECORDS SUMMARY | 2023-10-07 03:02 | External Medical Summary ---
Author Name Unknown Address Unknown Organization K01:[facility] - [address] [place] [address] Laboratory Report Ordering Provider Test Date Status AVNI LUIS 09/12/2023 10:47:00 Final Observation Date Value Abnormality Reference (Units ) Status Ferritin 09/12/2023 10:47:00 176 30-400 (ng /mL) Final Performing Location [facility] - [address] [place] [address]
--- OUTSIDE RECORDS SUMMARY | 2023-10-07 03:02 | External Medical Summary | Summary of Care ---
Author Name Unknown Organization [facility] Address [address] [place] [address] Phone [phone] Care Team Providers Care Auto Glass Installer Name Role Phone Michael Hinton MD Primary Care Provider [phone] Reason for Visit * Reason Onset Date Comments [facility]: Maintenance 10/02/2023 Encounter Details Date Type Department Care Team (Late st Contact Info) Description 10/02/2023 Telephone [facility], [facility] [address] [facility] [place] [address] [facility], Nurse [facility] [address] [facility] [place] [address] [facility]: Maintenance Allergies Active Allergy Reactions Criticality Noted Date Comments Fabiano Inhibitors Cough 06/09/2017 Carbidopa W-Levodopa 03/17/2021 Constipation Nsaids Rash 05/17/2018 Contraindicated per drawer in jacquard loom documented as of this encounter (statuses as of 10/02/2023) Medications Medication Sig Dispensed Refills Start Date End Date Status Glucose Blood (ONETOUCH VERIO) STRPIndications:Ty pe 2 diabetes mellitus with hemoglobin A1c goal of less than 8.0% (HCC) Use up to 4 times a day E11.9 400 Strip 3 08/29/2018 Active ONETOUCH DELICA LANCETS 33G MISCIndications:Ty pe 2 diabetes mellitus with hemoglobin A1c goal of less than 8.0% (HCC) Use up to 4 times a day 400 Each 3 08/29/2018 Active Dupixent 300 MG/2ML Subcutaneous Solution Prefilled Syringe (Dupilumab)Indicat ions:Atopic dermatitis, unspecified type 1 syringe subcutaneously every other week 4 mL 3 12/16/2021 Active Cyanocobalamin 1000 MCG Oral Tablet (Cyanocobalamin) Take 2 Tablets by mouth in the morning. 0 Active Benzonatate 100 MG Oral CapsuleIndications :Viral URI with cough Take 2 Capsules by mouth 3 times a day as needed for Cough. 30 Capsule 1 02/25/2023 Active Levalbuterol Tartrate 45 MCG/ACT Inhalation Aerosol (Xopenex HFA)Indications:Pn eumonia of left lower lobe due to infectious organism Inhale 1 Puff by mouth every 6 hours as needed for Wheezing. Or coughing spells 15 g 12 03/10/2023 Active Acetaminophen 500 MG Oral Tablet Take 2 Tablets by mouth every 8 hours as needed. Take every morning 0 Active Lidocaine HCl 4 % External Cream Apply topically to affected area. Apply to Right knee every morning then as needed per package directions 0 Active Vitamin D (Cholecalciferol) 25 MCG (1000 UT) Oral Capsule Take 1 Capsule by mouth every evening. 30 Capsule 0 03/28/2023 Active Ferrous Sulfate 325 (65 Fe) MG Oral Tablet Take 1 Tablet by mouth daily with breakfast. 180 Tablet 1 03/28/2023 Active Cephalexin 500 MG Oral Capsule Take 1 Capsule by mouth every evening. 30 Capsule 0 03/28/2023 Active Pantoprazole Sodium 40 MG Oral Tablet Delayed Release (Protonix) TAKE ONE TABLET BY MOUTH EVERY DAY 90 Tablet 3 04/15/2023 4 Active Metoprolol Succinate ER 25 MG Oral Tablet Extended Release 24 Hour (toPROL XL) TAKE ONE TABLET BY MOUTH EVERY MORNING 90 Tablet 3 03/21/2023 4 Active buPROPion HCl ER (XL) 150 MG Oral Tablet Extended Release 24 Hour (Wellbutrin XL) TAKE ONE TABLET BY MOUTH EVERY DAY IN THE MORNING 100 Tablet 3 03/17/2023 4 Active Amantadine HCl 100 MG Oral Capsule (Symmetrel) TAKE ONE CAPSULE BY MOUTH EVERY DAY WITH LUNCH 90 Capsule 3 02/16/2023 4 Active Donepezil HCl 10 MG Oral Tablet (Aricept) TAKE ONE TABLET BY MOUTH EVERY DAY IN THE EVENING 90 Tablet 3 02/16/2023 4 Active Escitalopram Oxalate 20 MG Oral Tablet (Lexapro) TAKE ONE TABLET BY MOUTH EVERY MORNING 90 Tablet 3 01/23/2023 4 Active Torsemide 20 MG Oral Tablet (Demadex)Indicatio ns:Nonrheumatic mitral valve regurgitation,Krista nary artery disease involving [place]at coronary artery of [place]utat heart without angina pectoris,Paroxysma l atrial fibrillation (HCC),Stage 3b chronic kidney disease (HCC) Take 1 Tablet by mouth in the morning. 180 Tablet 3 05/02/2023 Active DIURETIC TITRATION PLAN If no improvement on day 3, contact heart failure managing provider. 1 Each 0 05/02/2023 Active metFORMIN HCl ER 500 MG Oral Tablet Extended Release 24 Hour (Glucophage XR) Take 1 Tablet by mouth daily. 100 Tablet 3 06/23/2023 Active Chlorhexidine Gluconate 0.12 % Mouth/Throat Solution (Periogard)Indicat ions:Canker sores oral,Dry mouth Swish and spit 15 mL in the morning and 15 mL before bedtime. 473 mL 0 07/06/2023 Active Betamethasone Dipropionate 0.05 % External OintmentIndication s:Inflamed seborrheic keratosis APPLY TO SKIN LESIONS AND SCALP LESIONS UP TO TWO TIMES A DAY FOR NO LONGER THAN 2 WEEKS AT A TIME FOR ITCH. (THEN TAKE A 2 WEEK BREAK) 45 g 2 08/07/2023 4 Active Dutasteride 0.5 MG Oral Capsule (Avodart) Take 1 Capsule by mouth in the morning. 90 Capsule 3 08/29/2023 Active documented as of this encounter (statuses as of 10/02/2023) Active Problems Problem Noted Date Diagnosed Date [...] Last Assessment & Plan: Followed closely by [facility] hematology. No identified cause of HUNTER. [...] knees 03/21/2018 Coronary artery disease invo lving yakutat coronary artery of [place] heart without angina pectoris 03/21/2018 Last Assessment [...] as of this encounter (statuses as of 10/02/2023) Resolved Problems Problem Noted Date Diagnosed Date [...] Overview: See scanned document from 11/13/2012 from [facility]. 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y [...] as of this encounter (statuses as of 10/02/2023) Immunizations Name Administration Dates Next Due COVID-19 mRNA, LNP-s, No Pre serve, 2-Dose Series (Pfizer) 11/03/2021,12/19/2020,11/28/2020 Covid-19 Ad26, Single Dose (Soy/J&J) 12/19/2020,11/28/2020 DTaP Dipth/Tet/Acell Pertussis (Infanrix), Peds 10/24/2019 Pneumococcal Conjugate Vacc, 13 Valent (Prevnar) 04/27/2016 Pneumococcal Polysaccharide PPV23 (Pneumovax) 08/27/2009 SEASONAL INFLUENZA, PF, 6 M & Above, IM , (FLULAVAL or FLUZONE) 07/31/2019,07/04/2018,07/26/2017 Season Influenza, Quad, PF, Adjuvanted, 65+ Yrs, IM (FLUAD) 07/07/2020 Seasonal Influenza Virus Vac cine, Unspecified Formulation 07/07/2020,07/31/2019,07/04/2018,1001/2017,08/23/2016,07/25/2016,07/03/20 15,07/14/2014,07/06/2013,07/13/2012,0 07/15/2011,07/27/2010,07/02/2009,09/03,08/28/2007,08/28/2006, 5 Seasonal Influenza, QUAD, wi [...] encounter Miscellaneous Notes * Telephone Encounter - Karina Wynn LPN - 10/02/2023 4:48 PM EST Images from the original note were not included. Call to pt with message from Mercedes Jain regarding lab results from 09/28 No answer left following message for pt. Instructed to call [facility] at [phone] with any further questions documented in this encounter Plan of Treatment Upcoming Encounters Date Type Department Care Team (Late st Contact Info) Description 10/05/2023 8:00 AM EST Laboratory Lab Mobile Phlebotomy [facility] [address] [place] [address] [facility] Home Draw [address] [place] [address] 10/05/2023 12:30 PM EST Scheduled Telephone [facility] [address] [place] [address] [facility] [address] [facility] [place] [address] 10/09/2023 9:30 AM EST Scheduled Telephone [facility] at [address] [place] [address] [facility] Nurse Triage [address] [facility] [place] [address] 10/12/2023 8:00 AM EST Laboratory Lab Mobile Phlebotomy [facility] [address] [place] [address] [facility], [facility] Mobile Home Draw [address] [place] [address] 10/19/2023 8:00 AM EST Laboratory Lab Mobile Phlebotomy [facility] [address] [place] [address] [facility], [facility] Home Draw [address] [place] [address] 11/03/2023 2:00 PM EST Nurse Only Ancillary [facility] [address] [facility] [place] [address] [facility], Nurse Annual [facility] [address] [facility] [address] 11/06/2023 12:30 PM EST [facility] Visit [facility] [address] [facility] [address] Peggy De RN [address] [place] [address] 11/14/2023 1:30 PM EST Office Visit [facility]ph[facility], [facility] [address] [facility] [address] ZemaitisNataly PA-C [address] [facility] [address] 03/11/2024 3:15 PM EDT Office Visit Urology, [facility] [address] [facility] [address] Kalpesh Funes MD [address] [facility] [address] [place] [address] Scheduled Procedures Name Priority Associated Diagnoses Date/Ti me COLONOSCOPY FLEXIBLE PROXIMAL DIAGNOSTIC Recall History of colon polyps Health Maintenance Due Date Last Done Comments Hepatitis C Screening 1963 Hepatitis B (1 of 3 - Risk 3-dose series) 2004 Diabetic Foot Exam 03/27/2021 03/27/2020, 08/23/2018 COVID-19 Vaccine ( season) 2023 11/03/2021, 12/19/2020, 12/19/2020, Additional history exists HbA1c 10/12/2023 04/12/2023, 0303/2023, 03/22/2022, Additional history exists Diabetic Eye Exam 11/01/2023 11/01/2022, , 08/04/2011, Additional history exists Depression Screening 11/02/2023 11/02/2022 GFR 11/04/2023 05/04/2023, 03/23, 03/16/2023, Additional history exists Albumin/Creatinine Ratio 12/27/2023 023, 03/08/2019, 04/09/2014 CKD PHOS USE SMARTSET 13925 12/27/2023 12/26/2022, 0 06/21/2021 CKD HGB USE SMARTSET 76379 09/28/202409/28, 09/28/2023, 09/21/2023, Additional history exists COLONOSCOPY-EVERY 3 YRS AGES [...] this encounter Medical Devices Implanted Type Area Emergency Operator Device Identifier Shelf Expiration Date Model / Serial / Lot Lens Intraoc 22.5 - [id number] - [id number] Implanted:Qty: 1 on 05/22/2018 by Jasbir Maurer MD at OR [facility] Right: Eye [employer] 11/22/2022 [id number] / [id number] / [id number] Lens Intraoc 21.0 - [id number] - [id number] Implanted:Qty: 1 on 06/05/2018 by Jasbir Maurer MD at OR [facility] Left: Eye [employer] 12/20/2022 [id number] / [id number] / documented as of this encounter Advance [...] Agents on File Name Relationship Healthcare Agent [facility] p Communication Ashley Jose Spouse Health Care Power of Attor mayela Care Teams Auto Glass Installer Relationship Specialty Start Date End Date Michael Hinton MD [address] [place] [address] PCP - General Family Medicine 08/07/17 documented as of this encounter
--- OUTSIDE RECORDS SUMMARY | 2023-10-07 03:02 | External Medical Summary ---
Author Name Unknown Address Unknown Organization [id number]:[facility] [address] [place] [address] Laboratory Report Ordering Provider Test Date Status AVNI LUIS 09/21/2023 10:10:00 Final Observation Date Value Abnormality Reference (Units ) Status Ferritin 09/21/2023 10:10:00 80 30-400 (ng /mL) Final Performing Location [facility] - [address] [place] [address]
--- OUTSIDE RECORDS SUMMARY | 2023-10-07 03:02 | External Medical Summary ---
Author Name Unknown Address Unknown Organization [id number]:[facility] [place] 57-10 - [address] [place] [address] Laboratory Report Ordering Provider Test Date Status AVNI LUIS 09/12/2023 10:47:00 Final Observation Date Value Abnormality Reference (Units ) Status SYNC LEUKOCYTES IN BLOOD BY AUTOMATED COUNT 09/12/2023 10:47:00 4.55 4.00-10.80 (K/uL) Final Segs 09/12/2023 10:47:00 71.5 40.0-75.0 (%) Final Lymphs % 09/12/2023 10:47:00 19.8 18.0-42.0 (%) Final Monos 09/12/2023 10:47:00 7.9 1.0-11.0 (%) Final Eosinophils 09/12/2023 10:47:00 0.4 0.0-6.0 (%) Final Basos 09/12/2023 10:47:00 0.4 0.0-2.0 (%) Final Absolute Segs 09/12/2023 10:47:00 3.25 1.80-7.70 (K/uL) Final Lymphs, absolute 09/12/2023 10:47:00 0.90 Below low normal 1.00-4.80 (K/ul) Final Monos, Abs 09/12/2023 10:47:00 0.36 0.00-1.10 (K/uL) Final Eos, Abs 09/12/2023 10:47:00 0.02 0.00-0.70 (K/uL) Final Basos, Abs 09/12/2023 10:47:00 0.02 0.00-0.20 (K/uL) Final Performing Location [facility] - [address] [place] [address]
--- OUTSIDE RECORDS SUMMARY | 2023-10-07 03:02 | External Medical Summary ---
Author Name Unknown Address Unknown Organization [id number]:[facility] [place] 57-10 - [address] [place] [address] Laboratory Report Ordering Provider Test Date Status AVNI LUIS 09/21/2023 10:10:00 Final Observation Date Value Abnormality Reference (Units ) Status WBC, Total 09/21/2023 10:10:00 3.12 Below low normal 4. 00-10.80 (K/uL) Final RBC 09/21/2023 10:10:00 2.32 4.50-5.25 (M/uL) Final Hemoglobin 09/21/2023 10:10:00 8.0 Below low normal 14 .0-16.8 (g/dL) Final HCT 09/21/2023 10:10:00 24.9 Below low normal 40. 0-48.4 (%) Final MCV 09/21/2023 10:10:00 107.3 82.0-99.5 (fL) Final MCH 09/21/2023 10:10:00 34.5 27.0-34.0 (pg) Final MCHC 09/21/2023 10:10:00 32.1 32.0-36.0 (g/dL) Final RDW 09/21/2023 10:10:00 13.5 11.5-15.5 (%) Final Platelets 09/21/2023 10:10:00 141 140-400 (K /uL) Final MPV 09/21/2023 10:10:00 9.4 6.6-11.1 ( fL) Final Performing Location [facility] [place] 57-1 0 - [address] [place] [address]
--- OUTSIDE RECORDS SUMMARY | 2023-10-07 03:02 | External Medical Summary ---
Author Name Unknown Address Unknown Organization [id number]:[facility]ORATORY [facility] [place] - [address] [place] [address] Laboratory Report Ordering Provider Test Date Status AVNI LUIS 09/28/2023 11:26:00 Final Observation Date Value Abnormality Reference (Units ) Status Ferritin 09/28/2023 11:26:00 57 30-400 (ng /mL) Final Performing Location [facility]ORY [facility] [place] - [address] [place] [address]
--- OUTSIDE RECORDS SUMMARY | 2023-10-07 03:02 | External Medical Summary ---
Author Name Unknown Address Unknown Organization [id number]:[facility]ORY [place] 57-10 - [address] [place] [address] Laboratory Report Ordering Provider Test Date Status AVNI LUIS 09/28/2023 11:26:00 Final Observation Date Value Abnormality Reference (Units ) Status SYNC LEUKOCYTES IN BLOOD BY AUTOMATED COUNT 09/28/2023 11:26:00 3.94 Below low normal 4.00-10.80 (K/uL) Final Segs 09/28/2023 11:26:00 67.0 40.0-75.0 (%) Final Lymphs % 09/28/2023 11:26:00 23.6 18.0-42.0 (%) Final Monos 09/28/2023 11:26:00 8.1 1.0-11.0 (%) Final Eosinophils 09/28/2023 11:26:00 0.8 0.0-6.0 (%) Final Basos 09/28/2023 11:26:00 0.5 0.0-2.0 (%) Final Absolute Segs 09/28/2023 11:26:00 2.64 1.80-7.70 (K/uL) Final Lymphs, absolute 09/28/2023 11:26:00 0.93 Below low normal 1.00-4.80 (K/ul) Final Monos, Abs 09/28/2023 11:26:00 0.32 0.00-1.10 (K/uL) Final Eos, Abs 09/28/2023 11:26:00 0.03 0.00-0.70 (K/uL) Final Basos, Abs 09/28/2023 11:26:00 0.02 0.00-0.20 (K/uL) Final Performing Location LAB[facility]ATORY [place] [facility]-1 0 - [address] [place] [address]
--- OUTSIDE RECORDS SUMMARY | 2023-10-07 03:03 | External Medical Summary ---
Author Name Unknown Address Unknown Organization [id number]:[facility] [place] 57-10 - [address] [facility] [place] [address] Laboratory Report Ordering Provider Test Date Status AVNI LUIS 08/17/2023 10:16:00 Final Observation Date Value Abnormality Reference (Units ) Status Nucleated erythrocytes/100 leukocytes [Ratio] in Blood by Automated count 08/17/2023 10:16:00 Final Variant lymphocytes [Presence] in Blood by Light microscopy 08/17/2023 10:16:00 Present Abnormal None Seen Final Performing Location LAB[facility]ATORY [place] 57-1 0 - [address] [place] [address]
--- OUTSIDE RECORDS SUMMARY | 2023-10-07 03:03 | External Medical Summary ---
Author Name Unknown Address Unknown Organization [id number]:[facility] [place] - [address] [place] [address] Laboratory Report Ordering Provider Test Date Status AVNI LUIS 08/24/2023 10:06:00 Final Observation Date Value Abnormality Reference (Units ) Status Ferritin 08/24/2023 10:06:00 92 30-400 (ng /mL) Final Performing Location [facility] [place] - [address] [place] [address]
--- OUTSIDE RECORDS SUMMARY | 2023-10-07 03:03 | External Medical Summary ---
Author Name Unknown Address Unknown Organization [id number]:[facility]ATORY [facility] 57-10 - [address] [place] [address] Laboratory Report Ordering Provider Test Date Status AVNI LUIS 09/07/2023 10:08:00 Final Observation Date Value Abnormality Reference (Units ) Status WBC, Total 09/07/2023 10:08:00 4.67 4.00-10.8 0 (K/uL) Final RBC 09/07/2023 10:08:00 2.86 4.50-5.25 (M/uL) Final Hemoglobin 09/07/2023 10:08:00 9.9 Below low normal 14 .0-16.8 (g/dL) Final HCT 09/07/2023 10:08:00 30.3 Below low normal 40. 0-48.4 (%) Final MCV 09/07/2023 10:08:00 105.9 82.0-99.5 (fL) Final MCH 09/07/2023 10:08:00 34.6 27.0-34.0 (pg) Final MCHC 09/07/2023 10:08:00 32.7 32.0-36.0 (g/dL) Final RDW 09/07/2023 10:08:00 14.6 11.5-15.5 (%) Final Platelets 09/07/2023 10:08:00 163 140-400 (K /uL) Final MPV 09/07/2023 10:08:00 9.3 6.6-11.1 ( fL) Final Performing Location LABORATORY [facility] 57-1 0 - [address] [place] [address]
--- OUTSIDE RECORDS SUMMARY | 2023-10-07 03:03 | External Medical Summary ---
Author Name Unknown Address Unknown Organization K01:[facility] [place] [address] [place] [address] Laboratory Report Ordering Provider Test Date Status TOBYAVNI 08/31/2023 09:07:00 Final Observation Date Value Abnormality Reference (Units ) Status SYNC LEUKOCYTES IN BLOOD BY AUTOMATED COUNT 08/31/2023 09:07:00 3.27 Below low normal 4.00-10.80 (K/uL) Final Segs 08/31/2023 09:07:00 60.9 40.0-75.0 (%) Final Lymphs % 08/31/2023 09:07:00 26.9 18.0-42.0 (%) Final Monos 08/31/2023 09:07:00 9.5 1.0-11.0 (%) Final Eosinophils 08/31/2023 09:07:00 0.6 0.0-6.0 (%) Final Basos 08/31/2023 09:07:00 0.6 0.0-2.0 (%) Final Immature Granulocyte, Percent 08/31/2023 09:07:00 1.5 0.0-2.0 (%) Final Absolute Segs 08/31/2023 09:07:00 1.99 1.80-7.70 (K/uL) Final Lymphs, absolute 08/31/2023 09:07:00 0.88 Below low normal 1.00-4.80 (K/ul) Final Monos, Abs 08/31/2023 09:07:00 0.31 0.00-1.10 (K/uL) Final Eos, Abs 08/31/2023 09:07:00 0.02 0.00-0.70 (K/uL) Final Basos, Abs 08/31/2023 09:07:00 0.02 0.00-0.20 (K/uL) Final Immature Granulocytes, Number 08/31/2023 09:07:00 0.05 0.00-0.20 (K/uL) Final Performing Location [facility] [place] - [address] [facility] [address]
--- OUTSIDE RECORDS SUMMARY | 2023-10-07 03:03 | External Medical Summary ---
Author Name Unknown Address Unknown Organization [id number]:[facility] [place] [address] [place] [address] Laboratory Report Ordering Provider Test Date Status AVNI LUIS 09/07/2023 10:08:00 Final Observation Date Value Abnormality Reference (Units ) Status Ferritin 09/07/2023 10:08:00 288 30-400 (ng /mL) Final Performing Location [facility] [place] [address] [facility] [place] [address]
--- OUTSIDE RECORDS SUMMARY | 2023-10-07 03:03 | External Medical Summary ---
Author Name Unknown Address Unknown Organization [id number]:LABORATORY [facility] [place] - [facility] [place] [address] Laboratory Report Ordering Provider Test Date Status AVNI LUIS 08/31/2023 09:07:00 Final Observation Date Value Abnormality Reference (Units ) Status WBC, Total 08/31/2023 09:07:00 3.27 Below low normal 4.00-10.80 (K/uL) Final RBC 08/31/2023 09:07:00 2.83 4.50-5.25 (M/uL) Final Hemoglobin 08/31/2023 09:07:00 9.8 Below low normal 14.0-16.8 (g/dL) Final HCT 08/31/2023 09:07:00 31.1 Below low normal 40.0-48.4 (%) Final MCV 08/31/2023 09:07:00 109.9 82.0-99.5 (fL) Final MCH 08/31/2023 09:07:00 34.6 27.0-34.0 (pg) Final MCHC 08/31/2023 09:07:00 31.5 32.0-36.0 (g/dL) Final RDW 08/31/2023 09:07:00 14.6 11.5-15.5 (%) Final Platelets 08/31/2023 09:07:00 149 140-400 (K/uL) Final MPV 08/31/2023 09:07:00 9.4 6.6-11.1 (fL) Final Nucleated erythrocytes/100 leukocytes [Ratio] in Blood by Automated count 08/31/2023 09:07:00 0 <=0 (/100 WBCs) Final Performing Location LABORATORY [facility] [place] - [address] [place] [address]
--- OUTSIDE RECORDS SUMMARY | 2023-10-07 03:03 | External Medical Summary ---
Author Name Unknown Address Unknown Organization [id number][facility] [address] [place] [address] Laboratory Report Ordering Provider Test Date Status AVNI LUIS 08/24/2023 10:06:00 Final Observation Date Value Abnormality Reference (Units ) Status SYNC LEUKOCYTES IN BLOOD BY AUTOMATED COUNT 08/24/2023 10:06:00 4.71 4.00-10.80 (K/uL) Final Segs 08/24/2023 10:06:00 67.1 40.0-75.0 (%) Final Lymphs % 08/24/2023 10:06:00 23.8 18.0-42.0 (%) Final Monos 08/24/2023 10:06:00 7.9 1.0-11.0 (%) Final Eosinophils 08/24/2023 10:06:00 0.6 0.0-6.0 (%) Final Basos 08/24/2023 10:06:00 0.6 0.0-2.0 (%) Final Absolute Segs 08/24/2023 10:06:00 3.16 1.80-7.70 (K/uL) Final Lymphs, absolute 08/24/2023 10:06:00 1.12 1.00-4.80 (K/ul) Final Monos, Abs 08/24/2023 10:06:00 0.37 0.00-1.10 (K/uL) Final Eos, Abs 08/24/2023 10:06:00 0.03 0.00-0.70 (K/uL) Final Basos, Abs 08/24/2023 10:06:00 0.03 0.00-0.20 (K/uL) Final Performing Location LABORATORY [facility] 57-1 0 - [address] [place] [address]
--- OUTSIDE RECORDS SUMMARY | 2023-10-07 03:03 | External Medical Summary | Summary of Care ---
Author Name Unknown Organization [facility] Address [address] [place] [facility] [place] [address] Phone [phone] Care Team Providers Care Solar Installation Manager Name Role Phone Michael Hinton MD Primary Care Provider [phone] Reason for Visit * Reason Onset Date Comments [facility]: Maintenance 08/31/2023 Encounter Details Date Type Department Care Team (Late st Contact Info) Description 08/31/2023 11:00 AM EST Scheduled Telephone [facility], [facility] [address] [address] [facility] Nurse Triage [address] [place] [address] Allergies Active Allergy Reactions Criticality Noted Date Comments Fabiano Inhibitors Cough 06/09/2017 Carbidopa W-Levodopa 03/17/2021 Constipation Nsaids Rash 05/17/2018 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 0 Active Benzonatate 100 MG Oral CapsuleIndications :Viral URI with cough Take 2 Capsules by mouth 3 times a day as needed for Cough. 30 Capsule 1 02/25/2023 Active Additional Information Patient not taking.Reported on 04/17/2023 Levalbuterol Tartrate 45 MCG/ACT Inhalation Aerosol (Xopenex [...] mitral valve regurgitation,Krista nary artery disease involving asa'carsarmiut coronary artery of asa'carsarmiut heart without angina pectoris,Paroxysma l atrial fibrillation [...] mouth daily. 100 Tablet 3 06/23/2023 Active Dexamethasone 0.5 MG/5ML Oral Elixir (Decadron)Indicati ons:Canker sores oral Take 5 mL by mouth in the morning and 5 mL at noon and 5 mL in the evening and 5 mL before bedtime. 237 mL 1 07/06/2023 Active Chlorhexidine Gluconate 0.12 % Mouth/Throat Solution [...] as of this encounter (statuses as of 08/31/2023) Active Problems Problem Noted Date Diagnosed Date [...] Last Assessment & Plan: Followed closely by [facility] hematology. No identified cause of HUNTER. 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y [...] as of this encounter (statuses as of 08/31/2023) Immunizations Name Administration Dates Next Due COVID-19 mRNA, LNP-s, No Pre serve, 2-Dose Series (Doctor Fun) 11/03/2021,12/19/2020,11/28/2020 Covid-19 Ad26, Single Dose (Soy/J&J) 12/19/2020,11/28/2020 [...] encounter Miscellaneous Notes * Telephone Encounter - Esperanza Plummer RN - 08/31/2023 11:48 AM EST [facility] Performance Tester Monthly Visit Date: 08/31/2023 Time: 11:48 AM Name: Jesus Jose : 1945 Monthly follow up call to Jesus, agreed to telephonic assessment, aware that call is being recorded for training purposes. Problems/Symptoms: HPI: Ashley reports Jesus is doing really good, weight stable this morning at 167.2 lbs, denies any open areas/rashes noted, sleeps good at night and has a good appetite. BS's stable at 125 Constitutional: no weight loss, no weakness, and always tired, takes nap during the day. Sleeps well at night. Resp: no cough, no sputum, no wheezing, and no SOB Cardiac: no chest pain, no orthopnea, no dyspnea on exertion, no edema, no claudication, no palpitations, and + PND GI: no pain, no heartburn, no diarrhea, no constipation, no blood/melena, no nausea, no vomiting, LBM this morning, Urinating wnl's Musculoskeletal: no swelling, + back pain, and + generalized arthritic pain Neuro: no weakness, no numbness or tingling, no vertigo, + memory loss is forgetful at times, and +fall 3 weeks ago while standing in the bathroom urinating, no injury noted, did not strike his head. Medication Reconciliation: Does patient take medications as ordered: Yes, spouse manages medications, no med changes noted for past month No refills needed at this time Monthly follow up scheduled in September Esperanza Plummer RN 08/31/2023 documented in this encounter Plan of Treatment Upcoming Encounters Date Type Department Care Team (Late st Contact Info) Description 09/04/2023 11:00 AM EST Office Visit Cardiology, [facility] [address] [address] Leah Aguilera CRNP [address] [facility] [place] [address] 09/07/2023 8:00 AM EST Laboratory Lab Mobile Phlebotomy [facility] [address] [place] [address] [facility], [facility] Mobile Home Draw [address] [place] [address] 09/07/2023 4:00 PM EST Home Visit [facility], [facility] [address] [place] [address] Peggy De RN [address] [facility] [place] [address] 09/12/2023 8:30 AM EST Laboratory Lab Mobile Phlebotomy [facility] [address] [place] [address] [facility], [facility] Mobile Home Draw [address] [place] [address] 09/21/2023 8:00 AM EST Laboratory Lab Mobile Phlebotomy [facility] [address] [place] [address] [facility], [facility] Mobile Home Draw [address] [place] [address] 09/21/2023 1:30 PM EST Office Visit Nephrology, [facility] [address] [facility] [place] [address] ZemaitisNataly PA-C [address] [facility] [place] [address] 09/28/2023 8:00 AM EST Laboratory Lab Mobile Phlebotomy [facility] [address] [place] [address] [facility], [facility] Mobile Home Draw [address] [place] [address] 10/05/2023 8:00 AM EST Laboratory Lab Mobile Phlebotomy [facility] [address] [place] [address] [facility], [facility] Mobile Home Draw [address] [place] [address] 10/09/2023 9:30 AM EST Scheduled Telephone [facility], [facility] [address] [place] [address] [facility] Nurse Triage [address] [place] [address] 10/12/2023 8:00 AM EST Laboratory Lab Mobile Phlebotomy [facility] [address] [place] [address] [facility], [facility] Mobile Home Draw [address] [place] [address] 10/19/2023 8:00 AM EST Laboratory Lab Mobile Phlebotomy [facility] [address] [place] [address] [facility], [facility] Mobile Home Draw [address] [place] [address] 11/03/2023 2:00 PM EST Nurse Only Ancillary [facility] [place] [address] [facility] [place] [address] [facility], Nurse Annual Wellness [facility] [address] [facility] [place] [address] 03/11/2024 3:15 PM EDT Office Visit Urology, [facility] [address] [facility] [place] [address] Kalpesh Funes MD [address] [place] [address] Scheduled Procedures Name Priority Associated Diagnoses Date/Ti [...] 023, 03/08/2019, 04/09/2014 CKD PHOS USE SMARTSET 58868 12/27/2023 12/26/2022, 0 06/21/2021 CKD HGB USE SMARTSET 50795 08/24/202408/24, 08/24/2023, 08/17/2023, Additional history exists COLONOSCOPY-EVERY 3 YRS AGES [...] this encounter Medical Devices Implanted Type Area Intake Manager Device Identifier Shelf Expiration Date Model / Serial / Lot Lens Intraoc 22.5 - [id number] - [id number] Implanted:Qty: 1 on 05/22/2018 by Jasbir Maurer MD at OR [facility] Right: Eye [employer] 11/22/2022 [id number] / [id number] / [id number] Lens Intraoc 21.0 - [id number] - [id number] Implanted:Qty: 1 on 06/05/2018 by Jasbir Maurer MD at OR [facility] Left: Eye [employer] 12/20/2022 [id number] / [id number] / documented as of this encounter Advance [...] Agents on File Name Relationship Healthcare Agent [facility] Communication Ashley Fantasma Jose Spouse Health Care Power of Attor mayela [phone] ([place]) Care Teams Solar Installation Manager Relationship Specialty Start Date End Date Michael Hinton MD [address] [place] [address] PCP - General Family Medicine 08/07/17 documented as of this encounter
--- OUTSIDE RECORDS SUMMARY | 2023-10-07 03:03 | External Medical Summary ---
Author Name Unknown Address Unknown Organization [id number]:[facility] - [address] [facility] [address] Laboratory Report Ordering Provider Test Date Status AVNI LUIS 08/17/2023 10:16:00 Final Observation Date Value Abnormality Reference (Units ) Status SYNC LEUKOCYTES IN BLOOD BY AUTOMATED COUNT 08/17/2023 10:16:00 4.24 4.00-10.80 (K/uL) Final Segs 08/17/2023 10:16:00 65.5 40.0-75.0 (%) Final Lymphs % 08/17/2023 10:16:00 25.0 18.0-42.0 (%) Final Monos 08/17/2023 10:16:00 8.3 1.0-11.0 (%) Final Eosinophils 08/17/2023 10:16:00 0.7 0.0-6.0 (%) Final Basos 08/17/2023 10:16:00 0.5 0.0-2.0 (%) Final Absolute Segs 08/17/2023 10:16:00 2.78 1.80-7.70 (K/uL) Final Lymphs, absolute 08/17/2023 10:16:00 1.06 1.00-4.80 (K/ul) Final Monos, Abs 08/17/2023 10:16:00 0.35 0.00-1.10 (K/uL) Final Eos, Abs 08/17/2023 10:16:00 0.03 0.00-0.70 (K/uL) Final Basos, Abs 08/17/2023 10:16:00 0.02 0.00-0.20 (K/uL) Final Performing Location [facility] - [address] [place] [address]
--- OUTSIDE RECORDS SUMMARY | 2023-10-07 03:03 | External Medical Summary ---
Author Name Unknown Address Unknown Organization [id number]:[facility] [place] [address] [place] [address] Laboratory Report Ordering Provider Test Date Status AVNI LUIS 08/17/2023 10:16:00 Final Observation Date Value Abnormality Reference (Units ) Status Ferritin 08/17/2023 10:16:00 138 30-400 (ng /mL) Final Performing Location [facility] [address] [facility] [address] [place] [address]
--- OUTSIDE RECORDS SUMMARY | 2023-10-07 03:03 | External Medical Summary ---
Author Name Unknown Address Unknown Organization [id number]:LABORATORY [facility] - [address] [place] [address] Laboratory Report Ordering Provider Test Date Status AVNI LUIS 08/31/2023 09:07:00 Final Observation Date Value Abnormality Reference (Units ) Status Ferritin 08/31/2023 09:07:00 427 Above high normal 30 -400 (ng/mL) Final Performing Location LABORATORY [facility] - [address] [place] [place] [address]
--- OUTSIDE RECORDS SUMMARY | 2023-10-07 03:03 | External Medical Summary | Summary of Care ---
Author Name Unknown Organization [facility] Address [address] [place] [address] Phone [phone] Care Team Providers Care Collar Setter Name Role Phone Michael Hinton MD Primary Care Provider [phone] Reason for Visit * Reason Comments Follow Up Encounter Details Date Type Department Care Team (Late st Contact Info) Description 09/04/2023 11:00 AM EST Office Visit Cardiology, [facility] [address] [place] [address] Leah Aguilera CRNP [address] [place] [address] Chronic diastolic 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 *; Nonrheumatic mitral valve regurgitation; Coronary artery disease involving [place] coronary artery of [place] heart without angina pectoris; Paroxysmal atrial fibrillation (HCC) Allergies Active Allergy Reactions Criticality Noted Date Comments Fabiano Inhibitors Cough 06/09/2017 Carbidopa W-Levodopa 03/17/2021 Constipation Nsaids Rash 05/17/2018 Contraindicated per battery tester field documented as of this encounter (statuses as of 09/04/2023) Medications Medication Sig Dispensed Refills Start Date End Date Status Glucose Blood (ONETOUCH VERIO) STRPIndications:Ty pe 2 diabetes mellitus with hemoglobin A1c goal of less than 8.0% ([facility]) Use up to 4 times a day E11.9 400 Strip 3 08/29/2018 Active ONETOUCH DELICA LANCETS 33G MISCIndications:Ty pe 2 diabetes mellitus with hemoglobin A1c goal of less than 8.0% ([facility]) Use up to 4 times a day [...] Active Additional Information Patient not taking.Reported on 09/04/2023 Levalbuterol Tartrate 45 MCG/ACT Inhalation Aerosol (Xopenex [...] mitral valve regurgitation,Krista nary artery disease involving [place] coronary artery of [place] heart without angina pectoris,Paroxysma l atrial fibrillation [...] as of this encounter (statuses as of 09/04/2023) Active Problems Problem Noted Date Diagnosed Date [...] Last Assessment & Plan: Followed closely by [facility] hematology. No identified cause of HUNTER. Weekly [...] knees 03/21/2018 Coronary artery disease invo lving [place] coronary artery of [place] heart without angina pectoris 03/21/2018 Last Assessment [...] as of this encounter (statuses as of 09/04/2023) Resolved Problems Problem Noted Date Diagnosed Date [...] scanned [place] 11/13/[address] [place] [facility] 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y [...] as of this encounter (statuses as of 09/04/2023) Immunizations Name Administration Dates Next Due COVID-19 [...] I IV3, With Preserve, Inj 08/23/2016,07/03/2015,07/14/2014,06/23,07/13/2012,07/15/2011,07/27/20 10,07/02/2009,09/03/2008,08/28/2007,1 10/28/2005,09/07/2005 07/06/2014 TD - Tetanus/Diptheria (ADULT) 05/27/1997 TD, Preservative Free 05/27/1997 TDAP (age 10 and older)(Boostrix) 10/24/2019 TDAP (age 11 and older)(Adacel) 11/03/2008 Varicella Zoster Vaccine (Adult) 10/24/2019,08/23 Zoster Vaccine Recombinant (Shingrix) 10/24/2019 ,07/31/2019 documented as of this encounter Social History Tobacco Use Types Packs/Day Years Used Date Smoking Tobacco: Never Smokeless Tobacco: Never Tobacco Cessation:Counseling Given: Not Answered Alcohol Use Standard Drinks/Week Comments No 0 [...] Sign Reading Time Taken Comments Blood Pressure 140/64 09/04/2023 10:57 AM EST Pulse 82 09/04/2023 10:57 AM EST Temperature - - Respiratory Rate - - Oxygen Saturation 93% 09/04/2023 10:57 AM EST Inhaled Oxygen Concentration - - Weight 77.1 kg (170 lb) 09/04/2023 10:57 AM EST Height - - Body Mass Index 28.29 12/01/2022 10:58 AM EST documented in this encounter Progress Notes * Leah Aguilera CRNP - 09/04/2023 11:00 AM EST Cardiology Outpatient Visit 09/04/2023 Primary Momd Teacher: Dr. Benz Past medical history: CAD, history of CABG (CHILDS to LAD and exclusion of a right coronary artery aneurysm), 2011 at [facility] [place]. Chronic diastolic CHF, NYHA class 3 Mitral regurgitation, grade being mild to severe and very studies over the years mild on most recent echo, 2021 Paroxysmal atrial fibrillation- Eliquis held due to anemia, following with Hematology [facility] (Dr. Manuel) Frequent PACs Prostatic hypertrophy CKD-- follows with nephrology Parkinson's disease with related gait instability and dementia- follows with [facility] Significant anemia- follows with [facility] heme, gets IV iron transfusions HPI Medically complex 78-year-old male presenting to the cardiology office today in routine follow-up. Was last evaluated by the undersigned approximately 6 months ago. Today the patient presents feeling well and offers no acute concerns. He is accompanied by his wifeper his usual routine. Continues to stay active, ambulates with a wheeled walker due to gait instability. Did have a fall a few weeks back. Did not seek emergency department care. No chest pain, shortness of breath, palpitations, dizziness, syncope or near syncope. Chronically sleeps in a recliner.No PND. Lower extremity edema at baseline. Right leg always more swollen than the left due to orthopedic issues. No fever, chills, cough, hematochezia, melena, or hemoptysis. Continues to receive iron infusions per [facility] Hematology. Patient is compliant with all medications, and offers no side effects. Current Outpatient Medications Medication Sig Dispense Refill Glucose Blood (ONETOUCH VERIO) STRP Use up to 4 times a day E11.9 400 Strip 3 ONETOUCH DELICA LANCETS 33G MISC Use up to 4 times a day 400 Each 3 Dupixent 300 MG/2ML Subcutaneous Solution Prefilled Syringe (Dupilumab) 1 syringe subcutaneously every other week 4 mL 3 Cyanocobalamin 1000 MCG Oral Tablet (Cyanocobalamin) Take 2 Tablets by mouth in the morning. Levalbuterol Tartrate 45 MCG/ACT Inhalation Aerosol (Xopenex HFA) Inhale 1 Puff by mouth every 6 hours as needed for Wheezing. Or coughing spells 15 g 12 Acetaminophen 500 MG Oral Tablet Take 2 Tablets by mouth every 8 hours as needed. Take every morning Lidocaine HCl 4 % External Cream Apply topically to affected area. Apply to Right knee every morning then as needed per package directions Vitamin D (Cholecalciferol) 25 MCG (1000 UT) Oral Capsule Take 1 Capsule by mouth every evening. 30Capsule 0 Ferrous Sulfate 325 (65 Fe) MG Oral Tablet Take 1 Tablet by mouth daily with breakfast. 180 Tablet 1 Cephalexin 500 MG Oral Capsule Take 1 Capsule by mouth every evening. 30 Capsule 0 Pantoprazole Sodium 40 MG Oral Tablet Delayed Release (Protonix) TAKE ONE TABLET BY MOUTH EVERY DAY90 Tablet 3 Metoprolol Succinate ER 25 MG Oral Tablet Extended Release 24 Hour (toPROL XL) TAKE ONE TABLET BY MOUTH EVERY MORNING 90 Tablet 3 buPROPion HCl ER (XL) 150 MG Oral Tablet Extended Release 24 Hour (Wellbutrin XL) TAKE ONE TABLET BY MOUTH EVERY DAY IN THE MORNING 100 Tablet 3 Amantadine HCl 100 MG Oral Capsule (Symmetrel) TAKE ONE CAPSULE BY MOUTH EVERY DAY WITH LUNCH 90 Capsule 3 Donepezil HCl 10 MG Oral Tablet (Aricept) TAKE ONE TABLET BY MOUTH EVERY DAY IN THE EVENING 90 Tablet 3 Escitalopram Oxalate 20 MG Oral Tablet (Lexapro) TAKE ONE TABLET BY MOUTH EVERY MORNING 90 Tablet 3 Torsemide 20 MG Oral Tablet (Demadex) Take 1 Tablet by mouth in the morning. 180 Tablet 3 DIURETIC TITRATION PLAN If no improvement on day 3, contact heart failure managing provider. 1 Each0 metFORMIN HCl ER 500 MG Oral Tablet Extended Release 24 Hour (Glucophage XR) Take 1 Tablet by mouthdaily. 100 Tablet 3 Dexamethasone 0.5 MG/5ML Oral Elixir (Decadron) Take 5 mL by mouth in the morning and 5 mL at noon and 5 mL in the evening and 5 mL before bedtime. 237 mL 1 Chlorhexidine Gluconate 0.12 % Mouth/Throat Solution (Periogard) Swish and spit 15 mL in the morning and 15 mL before bedtime. 473 mL 0 Betamethasone Dipropionate 0.05 % External Ointment APPLY TO SKIN LESIONS AND SCALP LESIONS UP TO TWO TIMES A DAY FOR NO LONGER THAN 2 WEEKS AT A TIME FOR ITCH. (THEN TAKE A 2 WEEK BREAK) 45 g 2 Dutasteride 0.5 MG Oral Capsule (Avodart) Take 1 Capsule by mouth in the morning. 90 Capsule 3 Benzonatate 100 MG Oral Capsule Take 2 Capsules by mouth 3 times a day as needed for Cough. (Patient not taking: Reported on 09/04/2023) 30 Capsule 1 No current facility-administered medications for this visit. Past Medical History: Diagnosis Date BPH with obstruction/lower urinary tract symptoms 01/02/2019 Calculus of ureter Cerebral aneurysm without rupture 06/27/2018 Chronic diastolic 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 07/13/2022 Cognitive dysfunction 08/23/2018 Coronary artery disease involving [place] coronary artery of [place] heart without angina pectoris 03/21/2018 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 Dyslipidemia, goal LDL below 100 Epidermal cyst 09/21/2017 Flexural atopic dermatitis 11/29/2022 HTN, goal below 130/80 07/26/2018 HTN, goal below 140/90 Hx of Salmonella infection 05/16/2022 Other psoriasis Overweight (BMI 25.0-29.9) 07/13/2022 Prediabetes 06/29/2018 Primary osteoarthritis of both knees 03/21/2018 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 08/18/2017 2012 Seborrheic dermatitis 10/26/2018 Shingles 06/01/2019 right scalp Type 2 diabetes mellitus with hemoglobin A1c goal of less than 8.0% ([facility]) 07/26/2018 Past Surgical History: Procedure Laterality Date C-/T-SPINE PARAVERTEBRAL FACET INJ, 1 LEVEL 03/11/2015 C-/T-SPINE PARAVERTEBRAL FACET INJ, 1 LEVEL performed by Magdi Campos DO at OR [facility] [address] CARPAL TUNNEL SURGERY Carpal Tunnel repair COLONOSCOPY, DIAGNOSTIC (RECTUM) 03/24/2015 normal, repeat 10 yrs/COLONOSCOPY FLEXIBLE PROXIMAL DIAGNOSTIC performed by Francis Perez MD at ENDOSCOPY [facility] [address] COLONOSCOPY, DIAGNOSTIC (RECTUM) 09/12/2022 benign adenomatous polyp, diverticulosis, repeat 3 yrs / [facility] COLONOSCOPY, GI REFERRAL OP 10/23/2004 normal - repeat 10 years EGD, FLEXIBLE, DIAGNOSTIC N/A 09/09/2022 normal/EGD/[place] INFORMATION hammer toe surgery INFORMATION 10/23/2004 right ankle fusion [place] LAMINECTOMY,GREATER THAN 2 SGMT,CERVICAL 01/25/2021 C3-6 laminectomy and posterior fusion, [facility] [place] LAMINECTOMY,GREATER THAN 2 SGMT,CERVICAL N/A 01/25/2021 [facility] [place] C3-C6 lami REMOVE CATARACT, INSERT LENS PROSTH Right 05/22/2018 right EXTRACAPSULAR CATARACT REMOVAL WITH INTRAOCULAR LENS performed by Jasbir Maurer MD at [facility] REMOVE CATARACT, INSERT LENS PROSTH Left 06/05/2018 left EXTRACAPSULAR CATARACT REMOVAL WITH INTRAOCULAR LENS performed by Jasbir Maurer MD at [facility] REMOVE TONSILS & ADENOIDS, UNDER 12 Tonsillectomy/Adenoids,<11 Y/O REVISE HORIZONTAL EYE MUSCLE Strabissmus Surgery REVISE UPPER EYELID 04/14/2011 DIEGO Sung TOTAL HIP REPLACEMENT & PROSTHESIS 06/01/2012 RT Hip Replacement Social History Tobacco Use Smoking status: Never Smokeless tobacco: Never Vaping Use Vaping Use: Never used Substance Use Topics Alcohol use: No Drug use: No Comment: medical marijuana Review of patient's allergies indicates: Allergen Reactions Fabiano Inhibitors Cough Carbidopa W-Levodopa Constipation Nsaids Rash Contraindicated per battery tester field Review of Systems: See HPI for pertinent positives. All others negative, other than those noted in HPI. Physical Exam BP 140/64 | Pulse 82 | Wt 77.1 kg (170 lb) | SpO2 93% | BMI 28.29 kg/m | BSA 1.88 m General: No acute distress. A+Ox3. HEENT: Normocephalic. Atraumatic. Conjunctiva and sclera clear. NECK: No carotid bruits. No JVD. Carotid upstrokes are brisk. Heart: RRR. S1 and S2 noted without murmur, rubs, gallops. Lungs: Diminished lung sounds, LLL rales Abdomen: Normal bowel sounds. Obese, Taut Extremities: +1 BLLE pitting edema to knees/lymphedema. R>L. No clubbing or cyanosis. Pulses: radial=2/4, posterior tibial=2/4, dorsalis pedis = 2/4. NEURO: No focal deficits. PSYCH: Normal. Lab data/imaging study review: Echocardiogram performed 05/01/2022, [facility]: Mild concentric left ventricular hypertrophy, LVEF 60 65% Mild aortic valve sclerosis without stenosis Mild aortic regurgitation Moderate posterior mitral valve prolapse, mild to moderate anterior mitral valve prolapse, mild mitral regurgitation Transesophageal echocardiogram 04/22/2020: Prolapse of the posterior mitral valve leaflet Moderate mitral regurgitation Eccentric anteriorly directed MR jet Impression/Plan: 1. Chronic diastolic 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 (HCC) 2. Nonrheumatic mitral valve regurgitation -Chronic diastolic CHF, NYHA class 3 -Mitral regurgitation, grade varies mild to severe over the years-- mild on most recent echo, 2021 -Patient appears generally well compensated from a volume standpoint. He does have some lower extremity edema however this is chronic. Breathing is at baseline. -Follows with Nephrology given renal dysfunction 1. Continue torsemide 20 mg daily-- okay to take an additional 20 mg as needed for worsening lower extremity edema. 3. Goal hemoglobin >10 given CHF- follow with Hematology. 3. Coronary artery disease involving [place] coronary artery of [place] heart without angina pectoris -CAD, history of CABG (CHILDS to LAD and exclusion of a right coronary artery aneurysm), 2012 at [facility] [place]. -Stable, no angina 1. Aspirin on hold due to significant anemia and low platelets in the past. Hemoglobin currently 9.8 Ideally, patient should be on ASA given history of CABG--on hold per Hematology. 4. Paroxysmal atrial fibrillation (HCC) -Paroxysmal atrial fibrillation- Eliquis held due to anemia, following with Hematology. -Maintaining SR today in office per auscultation. 1. Discussed stroke risk with atrial fibrillation, unable to add anticoagulation due to prior bleeding/significant anemia. Discussed potential Watchman procedure however patient hesitant to have any further surgeries-- and patient would likely need ASA post procedurally. 2. Discussed possibly obtaining a [employer] mobile and checking heart rhythms periodically. Should patient reverted back in atrial fibrillation future considerations for amiodarone. The patient agrees to the above plan and will call with additional questions or concerns. ER with all emergencies advised. Follow-up: Return in about 6 months (around 03/04/2024). | Check-out note: SANTIAGO I spent a total of 40 minutes on the date of service in preparation, delivery, and documentation ofthe care provided to Jesus Jose excluding any time spent in the performance of separately billed services. HALLIE Sevilla [facility], Department of Cardiology This chart was completed in part utilizing [employer] Speech Voice Recognition Software. Grammatical errors, random word insertions, prounoun errors, and incomplete sentences are an occasional consequence of this system due to software limitations, ambient noise, and hardware issues. Any formal questions or concerns about the content, text, or information contained within the body of this dictation should be directly addressed to the provider for clarification. documented in this encounter Nursing Notes * Jacqui Henson CMA - 09/04/2023 10:56 AM EST Examination Room: 7 Name: Jesus Jose Date of : (1945) Reason for Visit: 2m Interim Hospitalization(s): none Problems/Concerns: denied Chest Pain/SOB: denied My [facility] is a way you can talk to your provider online through e-mail. Would you like to sign up? I can activate it for you? ALREADY ACTIVE Patient was instructed to not get up on the exam table until directed and assisted by their provider; patient is to remain seated in the chair/ wheelchair/ exam table for fall prevention and safety reasons. Patient is aware to have assistance to step down off exam table with personnel. Patient voiced full comprehension of instructions. documented in this encounter Plan of Treatment Upcoming Encounters Date Type Department Care Team (Late st Contact Info) Description 09/07/2023 8:00 AM EST Laboratory Lab Mobile Phlebotomy [facility] [address] [place] [address] [facility] Mobile Home Draw [address] [place] [address] 09/07/2023 4:00 PM EST Home Visit ising at [facility] [address] [place] [address] Peggy De, RN [address] [place] [address] 09/12/2023 8:30 AM EST Laboratory Lab Mobile Phlebotomy [facility] [address] [place] [address] [facility] Mobile Home Draw [address] [place] [address] 09/21/2023 8:00 AM EST Laboratory Lab Mobile Phlebotomy [facility] [address] [place] [address] [facility] Mobile Home Draw [address] [place] [address] 09/21/2023 1:30 PM EST Office Visit Nephrology, [address] [place] [address] Nataly Stone PA-C [address] [place], [place] [address] 09/28/2023 8:00 AM EST Laboratory Lab Mobile Phlebotomy [facility] [address] [place] [address] [facility] Mobile Home Draw [address] [place] [address] 10/05/2023 8:00 AM EST Laboratory Lab Mobile Phlebotomy [facility] [address] [place] [address] [facility] Mobile Home Draw [address] [place] [address] 10/09/2023 9:30 AM EST Scheduled Telephone [facility], [facility] [address] [place] [address] [facility] Nurse Triage [address] [place] [address] 10/12/2023 8:00 AM EST Laboratory Lab Mobile Phlebotomy [facility] [address] [place] [address] [facility] Mobile Home Draw [address] [place] [address] 10/19/2023 8:00 AM EST Laboratory Lab Mobile Phlebotomy [facility] [address] [place] [address] [facility], [facility] Mobile Home Draw [address] [place] [address] 11/03/2023 2:00 PM EST Nurse Only Ancillary [facility] [address] [place] [address] [facility] [address] [place] [address] 03/11/2024 3:15 PM EDT Office Visit Urology, [facility] [address] [place] [address] Kalpesh Funes MD [address] [place] [address] Scheduled Procedures [...] 023, 03/08/2019, 04/09/2014 CKD PHOS USE SMARTSET [id number] 12/27/2023 12/26/2022, 0 06/21/2021 CKD HGB USE SMARTSET 09644 08/31/202408/31, 08/31/2023, 08/24/2023, Additional history exists COLONOSCOPY-EVERY 3 YRS AGES [...] encounter Medical Devices Implanted Type Area It Applications Developer Device Identifier Shelf Expiration Date Model / Serial / Lot Lens Intraoc 22.5 - [id number] - [id number] Implanted:Qty: 1 on 05/22/2018 by Jasbir Maurer MD at OR [facility] [address] Right: Eye [employer] 11/22/2022 [id number] / [id number] / [id number] Lens Intraoc 21.0 - [id number] - [id number] Implanted:Qty: 1 on 06/05/2018 by Jasbir Maurer MD at OR [facility] [address] Left: Eye [employer] 12/20/2022 [id number] / [id number] / documented as of this encounter Visit Diagnoses Diagnosis Chronic diastolic 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- Primary Nonrheumatic mitral valve regurgitation Coronary artery disease involving [place] coronary artery of [place] heart without angina pectoris Paroxysmal atrial fibrillation (HCC) Atrial fibrillation documented in this encounter Advance Directives Latest Code Status [...] Agents on File Name Relationship [facility] Jose Spouse Health Care Power of Attor mayela Care Teams Collar Setter Relationship Specialty Start Date End Date Michael Hinton MD [address] [place] [address] PCP - General Family Medicine 08/07/17 documented as of this encounter
--- OUTSIDE RECORDS SUMMARY | 2023-10-07 03:03 | External Medical Summary | Summary of Care ---
Author Name Unknown Organization [facility] Address [address] [place] [address] Phone [phone] Care Team Providers Care Radio Operator Name Role Phone Serjio Hinton MD Primary Care Provider [phone] Reason for Visit * Reason Comments Follow Up Encounter Details Date Type Department Care Team (Late st Contact Info) Description 08/29/2023 3:30 PM EST Office Visit Urology, [facility] [address] [facility] [place] [address] Kalpesh Funes MD 27 [facility] [address] [place] [id number] BPH with obstruction/lower urinary tract symptoms*; Urge incontinence; Hematuria, gross Allergies Active Allergy Reactions Criticality Noted Date Comments Fabiano Inhibitors Cough 06/09/2017 Carbidopa W-Levodopa 03/17/2021 Constipation Nsaids Rash 05/17/2018 Contraindicated per administrative support specialist documented as of this encounter (statuses as of 08/29/2023) Medications Medication Sig Dispensed Refills Start Date End Date Status Glucose Blood (ONETOUCH VERIO) STRPIndications:T ype 2 diabetes mellitus with hemoglobin A1c goal of less than 8.0% (HCC) Use up to 4 times a day E11.9 400 Strip 3 08/29/2018 Active ONETOUCH DELICA LANCETS 33G MISCIndications:T ype 2 diabetes mellitus with hemoglobin A1c goal of less than 8.0% (HCC) Use up to 4 times a day 400 Each 3 08/29/2018 Active Dupixent 300 MG/2ML Subcutaneous Solution Prefilled Syringe (Dupilumab)Indica tions:Atopic dermatitis, unspecified type 1 syringe subcutaneously every other week 4 mL 3 12/16/2021 Active Additional Information Patient not taking.Reported on 08/10/2023 Cyanocobalamin 1000 MCG Oral Tablet (Cyanocobalamin) Take 2 Tablets by mouth in the morning. 0 Active Benzonatate 100 MG Oral CapsuleIndication s:Viral URI with cough Take 2 Capsules by mouth 3 times a day as needed for Cough. 30 Capsule 1 02/25/2023 Active Additional Information Patient not taking.Reported on 04/17/2023 Levalbuterol Tartrate 45 MCG/ACT Inhalation Aerosol (Xopenex HFA)Indications:P neumonia of left lower lobe due to infectious [...] MOUTH EVERY DAY 90 Tablet 3 04/15/2023 04/14/20 24 Active Metoprolol Succinate ER 25 MG Oral Tablet Extended Release 24 Hour (toPROL XL) TAKE ONE TABLET BY MOUTH EVERY MORNING 90 Tablet 3 03/21/2023 03/20/20 24 Active buPROPion HCl ER (XL) 150 MG Oral Tablet Extended Release 24 Hour (Wellbutrin XL) TAKE ONE TABLET BY MOUTH EVERY DAY IN THE MORNING 100 Tablet 3 03/17/2023 03/16/20 24 Active Amantadine HCl 100 MG Oral Capsule (Symmetrel) TAKE ONE CAPSULE BY MOUTH EVERY DAY WITH LUNCH 90 Capsule 3 02/16/2023 02/16/20 24 Active Donepezil HCl 10 MG Oral Tablet (Aricept) TAKE ONE TABLET BY MOUTH EVERY DAY IN THE EVENING 90 Tablet 3 02/16/2023 02/16/20 24 Active Escitalopram Oxalate 20 MG Oral Tablet (Lexapro) TAKE ONE TABLET BY MOUTH EVERY MORNING 90 Tablet 3 01/23/2023 01/23/20 24 Active Torsemide 20 MG Oral Tablet (Demadex)Indicati ons:Nonrheumatic mitral valve regurgitation,Cor onary artery disease involving apache coronary artery of apache heart without angina pectoris,Paroxysm al atrial fibrillation (HCC),Stage 3b chronic kidney disease [...] 06/23/2023 Active Dexamethasone 0.5 MG/5ML Oral Elixir (Decadron)Indicat ions:Canker sores oral Take 5 mL by mouth in the morning and 5 mL at noon and 5 mL in the evening and 5 mL before bedtime. 237 mL 1 07/06/2023 Active Chlorhexidine Gluconate 0.12 % Mouth/Throat Solution (Periogard)Indica tions:Canker sores oral,Dry mouth Swish and spit 15 mL in the morning and 15 mL before bedtime. 473 mL 0 07/06/2023 Active Betamethasone Dipropionate 0.05 % External OintmentIndicatio ns:Inflamed seborrheic keratosis APPLY TO SKIN LESIONS AND SCALP LESIONS UP TO TWO TIMES A DAY FOR NO LONGER THAN 2 WEEKS AT A TIME FOR ITCH. (THEN TAKE A 2 WEEK BREAK) 45 g 2 08/07/2023 08/06/20 24 Active Dutasteride 0.5 MG Oral Capsule (Avodart) Take 1 Capsule by mouth in the morning. 90 Capsule 3 08/29/2023 Active Dutasteride 0.5 MG Oral Capsule (Avodart) TAKE ONE CAPSULE BY MOUTH EVERY MORNING 90 Capsule 3 12/13/2022 08/29/20 23 Discontinu ed(Refill) documented as of this encounter (statuses as of 08/29/2023) Active Problems Problem Noted Date Diagnosed Date [...] knees 03/21/2018 Coronary artery disease invo lving apache coronary artery of apache heart without angina pectoris 03/21/2018 Last Assessment [...] as of this encounter (statuses as of 08/29/2023) Resolved Problems Problem Noted Date Diagnosed Date [...] scanned document from 11/13/[address] [place] [facility] [place] 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y [...] as of this encounter (statuses as of 08/29/2023) Immunizations Name Administration Dates Next Due COVID-19 mRNA, LNP-s, No Pre serve, 2-Dose Series ([employer]) 11/03/2021,12/19/2020,11/28/2020 Covid-19 Ad26, Single Dose ([employer]) 12/19/2020,11/28/2020 DTaP Dipth/Tet/Acell Pertussis ([employer]), Peds 10/24/2019 [...] on file documented as of this encounter Progress Notes * Kalpesh Funes MD - 08/29/2023 3:30 PM EST [id number] PCP: SERJIO HINTON [address] [place] [address] [place] [address] [phone] Jesus Jose is a 78 year old male, who presents for follow-up of his urination. Patient's previous cystoscopy and urologic issues are noted. Conversion to dutasteride is appreciated, currently using monotherapy. He is here with his . He has nocturia x 2. Patient remains a poor historian due to CVA. He denies recurrent hematuria, denies significant incontinence. Hematuria: Presented to Urology Aug 2022. BPH: Patient is being seen for BPH today. He has had the following symptoms: slow stream, intermittency,nocturia x 3, urgency and incontinence of urine. Severity is moderate. He has tried tamsulosin, stopped. Previous prescription for finasteride appreciated. Switch to dutasteride November 2022. He has previously had office cystoscopy done November 2022 shows large intravesical median lobe, friable tissue. Problem has been present for years. Problem is getting worse. PSA Results: Lab Results Component Value Date/Time PSA - [facility] 4.80 (H) 08/24/2022 09:58 AM PSA - [facility] 4.18 (H) 03/08/2019 07:14 AM PSA - [facility] 3.62 12/29/2009 04:13 PM PSA - [facility] 1.95 01/26/2008 08:00 AM PSA SCREENING 3.80 08/17/2013 08:31 AM PSA SCREENING 2.93 12/31/2011 07:59 AM PSA SCREENING 2.33 12/25/2010 07:57 AM Creatinine Results: Lab Results Component Value Date/Time CREATININE - [facility] 1.9 (H) 05/04/2023 10:59 AM CREATININE - [facility] 1.8 (H) 04/04/2023 10:18 AM CREATININE - [facility] 1.7 (H) 03/16/2023 09:08 AM CREATININE - [facility] 1.5 (H) 08/31/2020 08:06 AM CREATININE - [facility] 1.1 07/15/2020 11:50 AM CREATININE - [facility] 1.4 (H) 04/06/2020 01:49 PM CREATININE, RANDOM URINE - [facility] 144 12/26/2022 09:30 AM CREATININE, RANDOM URINE - [facility] 110 03/08/2019 07:16 AM CREATININE, RANDOM URINE - [facility] 112 03/08/2019 07:16 AM CREATININE, RANDOM URINE - [facility] 114 04/09/2014 12:25 PM CREATININE-OU[facility]IDE [facility] 1.93 (A) 05/04/2022 12:00 AM CREATININE-[facility] 1.32 09/01/2018 12:00 AM Current Outpatient Medications Medication Sig Dispense Refill Glucose Blood (ONETOUCH VERIO) STRP Use up to 4 times a day E11.9 400 Strip 3 ONETOUCH DELICA LANCETS 33G MISC Use up to 4 times a day 400 Each 3 Dupixent 300 MG/2ML Subcutaneous Solution Prefilled Syringe (Dupilumab) 1 syringe subcutaneously every other week (Patient not taking: Reported on 08/10/2023) 4 mL 3 Cyanocobalamin 1000 MCG Oral Tablet (Cyanocobalamin) Take 2 Tablets by mouth in the morning. Benzonatate 100 MG Oral Capsule Take 2 Capsules by mouth 3 times a day as needed for Cough. (Patient not taking: Reported on 04/17/2023) 30 Capsule 1 Levalbuterol Tartrate 45 MCG/ACT Inhalation Aerosol (Xopenex [...] Take 1 Capsule by mouth every evening. (Patient not taking: Reported on 04/12/2023) 30 Capsule 0 Ferrous Sulfate 325 (65 Fe) MG [...] BY MOUTH EVERY MORNING 90 Tablet 3 Dutasteride 0.5 MG Oral Capsule (Avodart) TAKE ONE CAPSULE BY MOUTH EVERY MORNING 90 Capsule 3 Torsemide 20 MG Oral Tablet (Demadex) [...] A 2 WEEK BREAK) 45 g 2 No current facility-administered medications for this visit. Review of patient's allergies indicates: Allergen Reactions Fabiano Inhibitors Cough Carbidopa W-Levodopa Constipation Nsaids Rash Contraindicated per administrative support specialist Social History: Social History Tobacco Use Smoking status: Never Smokeless tobacco: Never Substance Use Topics Alcohol use: No Vaping/E-Cigarette Use Vaping/E-Cigarette Use Never User Vaping/E-Cigarette Substances Vaping/E-Cigarette Devices Family History Problem Relation Age of Onset Heart Disorder Mother CAD age 72 Lung Disorder Mother COPD Hypertension Father Stroke Father No Past Hx Brother Asthma Daughter Mental Disorder Daughter Bipolar disorder Past Surgical History: Procedure Laterality Date C-/T-SPINE PARAVERTEBRAL FACET INJ, 1 LEVEL 03/11/2015 C-/T-SPINE PARAVERTEBRAL FACET INJ, 1 LEVEL performed by Magdi Campos DO at [facility] CARPAL TUNNEL SURGERY Carpal Tunnel repair COLONOSCOPY, DIAGNOSTIC (RECTUM) 03/24/2015 normal, repeat 10 yrs/COLONOSCOPY FLEXIBLE PROXIMAL DIAGNOSTIC performed by Francis Perez MD at ENDOSCOPY [facility] COLONOSCOPY, DIAGNOSTIC (RECTUM) 09/12/2022 benign adenomatous polyp, diverticulosis, repeat 3 yrs / [facility] COLONOSCOPY, GI REFERRAL OP 10/23/2004 normal - repeat 10 years EGD, FLEXIBLE, DIAGNOSTIC N/A 09/09/2022 normal/EGD/[place] INFORMATION hammer toe surgery INFORMATION 10/23/2004 right ankle fusion [place] LAMINECTOMY,GREATER THAN 2 SGMT,CERVICAL 01/25/2021 C3-6 laminectomy and posterior fusion, [facility] [place] LAMINECTOMY,GREATER THAN 2 SGMT,CERVICAL N/A 01/25/2021 [facility] [place] C3-C6 lami REMOVE CATARACT, INSERT LENS PROSTH Right 05/22/2018 right EXTRACAPSULAR CATARACT REMOVAL WITH INTRAOCULAR LENS performed by Jasbir Maurer MD at [facility] REMOVE CATARACT, INSERT LENS PROSTH Left 06/05/2018 left EXTRACAPSULAR CATARACT REMOVAL WITH INTRAOCULAR LENS performed by Jasbir Maurer MD at OR [facility] REMOVE TONSILS & ADENOIDS, UNDER 12 Tonsillectomy/Adenoids,<12 Y/O REVISE HORIZONTAL EYE MUSCLE Strabissmus Surgery REVISE UPPER EYELID 04/14/2011 DIEGO Sung TOTAL HIP REPLACEMENT & PROSTHESIS 06/01/2012 RT Hip Replacement Past Medical History: Diagnosis Date BPH with obstruction/lower urinary tract symptoms 01/02/2019 Calculus of ureter Cerebral aneurysm without rupture 06/27/2018 Chronic diastolic 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 (HCC) 07/13/2022 Cognitive dysfunction 08/23/2018 Coronary artery disease involving apache coronary artery of apache heart without angina pectoris 03/21/2018 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 Dyslipidemia, goal LDL below 100 Epidermal [...] hemoglobin A1c goal of less than 8.0% ([facility]) 07/26/2018 Patient Active Problem List Diagnosis Code Dyslipidemia E78.5 FABIANO inhibitor intolerance Z78.9 Cervical spinal stenosis M48.02 FABIANO (generalized anxiety disorder) F41.1 Primary parkinsonism G20.C S/P CABG x 3 Z95.1 Primary osteoarthritis of both knees M17.0 Coronary artery disease involving apache coronary artery of apache heart without angina pectoris I25.10 HTN, goal below 130/80 I10 Type 2 diabetes mellitus with hemoglobin A1c goal of less than 8.0% ([facility]) 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, N13.8 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, F02.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 Type 2 diabetes mellitus with diabetic peripheral angiopathy without gangrene (HCC) E11.51 Gastro-esophageal reflux disease without esophagitis K21.9 Iron deficiency anemia D50.9 Hypertensive 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) I13.0, I50.32, N18.32 Overweight (BMI 25.0-29.9) E66.3 Chronic diastolic 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 I50.32, I25.10 Urge incontinence N39.41 Hematuria, gross R31.0 Atrial fibrillation (HCC) I48.91 Flexural atopic dermatitis L20.89 Chronic kidney disease, stage 3b (HCC) N18.32 Type 2 diabetes mellitus with stage 3b chronic kidney disease (HCC) E11.22, N18.32 Immunodeficiency (HCC) D84.9 History of cellulitis Z87.2 Paroxysmal atrial fibrillation (HCC) I48.0 Constitutional: (-) fever and (-) chills ENT: (+) hearing loss and (-) stridor Male : see HPI Musculoskeletal: (+) muscle weakness Neurology: (+) loss of balance Psychiatry: (+) memory loss Physical Exam Constitutional: General: He is not in acute distress. Appearance: He is not ill-appearing or toxic-appearing. Comments: Using walker HENT: Head: Normocephalic and atraumatic. Right Ear: External ear normal. Left Ear: External ear normal. Mouth/Throat: Mouth: Mucous membranes are moist. Cardiovascular: Pulses: Normal pulses. Pulmonary: Effort: Respiratory distress (mild) present. Abdominal: General: There is no distension. Palpations: Abdomen is soft. Skin: Coloration: Skin is not pale. Neurological: Motor: Weakness present. Gait: Gait abnormal. Psychiatric: Behavior: Behavior normal. Thought Content: Thought content normal. Impression/Plan: 78 yo male with persistent LUTS. Patient remains opposed to surgical intervention, reasonable. Will continue on current therapy withdutasteride. Refill provided. Will see in 6 months with PSA to check on progress. Kalpesh Funes MD 3:30 PM 08/29/2023 documented in this encounter Nursing Notes * Saadia Dewey LPN - 08/29/2023 3:28 PM EST Pt presents in office 4 month ret BPH Discuss possible TURP @ [facility]?? C/o- fatigue PSA Results: Lab Results Component Value Date/Time PSA - [facility] 4.80 (H) 08/24/2022 09:58 AM PSA - [facility] 4.18 (H) 03/08/2019 07:14 AM PSA - [facility] 3.62 12/29/2009 04:13 PM PSA - [facility] 1.95 01/26/2008 08:00 AM PSA SCREENING 3.80 08/17/2013 08:31 AM PSA SCREENING 2.93 12/31/2011 07:59 AM PSA SCREENING 2.33 12/25/2010 07:57 AM documented in this encounter Plan of Treatment Upcoming Encounters Date Type Department Care Team (Late st Contact Info) Description 08/31/2023 8:00 AM EST Laboratory Lab Mobile Phlebotomy [facility] [address] [place] [address] [facility] Mobile Home Draw [address] [place] [address] 08/31/2023 11:00 AM EST Scheduled Telephone [facility] [place], [facility] [address] [facility] [place] [address] [facility] Nurse Triage 132 [facility] [place] [address] 09/04/2023 11:00 AM EST Office Visit Cardiology, [facility] 132 [facility] [place] [address] Leah Aguilera CRNP 132 [facility] [place] [address] 09/07/2023 8:00 AM EST Laboratory Lab Mobile Phlebotomy [facility] [address] [place] [address] [facility] Mobile Home Draw [address] [place] [address] 09/07/2023 4:00 PM EST Home Visit [facility], [facility] [address] [place] [address] Peggy De RN [address] [place] [address] 09/12/2023 8:30 AM EST Laboratory Lab Mobile Phlebotomy [facility] [address] [place] [address] [facility] Mobile Home Draw [address] [place] [address] 09/21/2023 8:00 AM EST Laboratory Lab Mobile Phlebotomy [facility] [address] [place] [address] [facility] Mobile Home Draw [address] [place] [address] 09/21/2023 1:30 PM EST Office Visit Nephrology, [facility] [address] [place] [address] ZemaitisNataly PA-C [address] [place] [address] 09/28/2023 8:00 AM EST Laboratory Lab Mobile Phlebotomy [facility] [address] [place] [address] [facility] Mobile Home Draw [address] [place] [address] 10/05/2023 8:00 AM EST Laboratory Lab Mobile Phlebotomy [facility] [address] [place] [address] [facility] Mobile Home Draw [address] [place] [address] 10/12/2023 8:00 AM EST Laboratory Lab Mobile Phlebotomy [facility] [address] [place] [address] [facility] Mobile Home Draw [address] [place] [address] 10/19/2023 8:00 AM EST Laboratory Lab Mobile Phlebotomy [facility] [address] [place] [address] [facility] Mobile Home Draw [address] [place] [address] 11/03/2023 2:00 PM EST Nurse Only Ancillary [address] [address] [facility], Nurse Annual Wellness [address] [address] 03/11/2024 3:15 PM EDT Office Visit Urology, [address] [address] Kalpesh Funes MD [address] [address] Scheduled Orders Name Type Priority Associated Diagnoses Orde r Schedule PSA Lab Routine BPH with obstruction/lower urinary tract symptoms Urge incontinence Hematuria, gross Expected: 02/27/2024, Expires: 08/29/2024 Scheduled Procedures Name Priority Associated Diagnoses Date/Ti [...] 023, 03/08/2019, 04/09/2014 CKD PHOS USE SMARTSET 79480 12/27/2023 12/26/2022, 0 06/21/2021 CKD HGB USE SMARTSET 12189 08/24/202408/24, 08/24/2023, 08/17/2023, Additional history exists COLONOSCOPY-EVERY [...] this encounter Medical Devices Implanted Type Area Repacker Device Identifier Shelf Expiration Date Model / Serial / Lot Lens Intraoc 22.5 - [id number] - [id number] Implanted:Qty: 1 on 05/22/2018 by Jasbir Maurer MD at OR [facility] Right: Eye [employer] 11/22/2022 [id number] / [id number] / [id number] Lens Intraoc 21.0 - [id number] - [id number] Implanted:Qty: 1 on 06/05/2018 by Jasbir Maurer MD at OR [facility] Left: Eye [employer] 12/20/2022 [id number] / [id number] / documented as of this encounter Visit Diagnoses Diagnosis BPH with obstruction/lower urinary tract symptoms- Primary Hypertrophy of prostate with urinary obstruction and other lower urinary tract symptoms (LUTS) Urge incontinence Hematuria, gross Gross hematuria documented in this encounter Advance Directives Latest [...] Care Power of Attor mayela Care Teams Radio Operator Relationship Specialty Start Date End Date Serjio Hinton MD [address] [place] [address] PCP - General Family Medicine 08/07/17 documented as of this encounter
--- OUTSIDE RECORDS SUMMARY | 2023-10-07 03:03 | External Medical Summary ---
Author Name Unknown Address Unknown Organization [id number] [address] [place] [address] Laboratory Report Ordering Provider Test Date Status AVNI LUIS 08/17/2023 10:16:00 Final Observation Date Value Abnormality Reference (Units ) Status WBC, Total 08/17/2023 10:16:00 4.24 4.00-10.8 0 (K/uL) Final RBC 08/17/2023 10:16:00 3.14 4.50-5.25 (M/uL) Final Hemoglobin 08/17/2023 10:16:00 10.8 Below low normal 14 .0-16.8 (g/dL) Final HCT 08/17/2023 10:16:00 33.1 Below low normal 40. 0-48.4 (%) Final MCV 08/17/2023 10:16:00 105.4 82.0-99.5 (fL) Final MCH 08/17/2023 10:16:00 34.4 27.0-34.0 (pg) Final MCHC 08/17/2023 10:16:00 32.6 32.0-36.0 (g/dL) Final RDW 08/17/2023 10:16:00 15.7 11.5-15.5 (%) Final Platelets 08/17/2023 10:16:00 166 140-400 (K /uL) Final MPV 08/17/2023 10:16:00 9.2 6.6-11.1 ( fL) Final Performing Location LABORATORY [facility] [address] [place] [id number]
--- OUTSIDE RECORDS SUMMARY | 2023-10-07 03:03 | External Medical Summary ---
Author Name Unknown Address Unknown Organization [facility] [address] [place] [id number] Laboratory Report Ordering Provider Test Date Status AVNI LUIS 09/07/2023 10:08:00 Final Observation Date Value Abnormality Reference (Units ) Status SYNC LEUKOCYTES IN BLOOD BY AUTOMATED COUNT 09/07/2023 10:08:00 4.67 4.00-10.80 (K/uL) Final Segs 09/07/2023 10:08:00 72.3 40.0-75.0 (%) Final Lymphs % 09/07/2023 10:08:00 19.9 18.0-42.0 (%) Final Monos 09/07/2023 10:08:00 6.6 1.0-11.0 (%) Final Eosinophils 09/07/2023 10:08:00 0.6 0.0-6.0 (%) Final Basos 09/07/2023 10:08:00 0.6 0.0-2.0 (%) Final Absolute Segs 09/07/2023 10:08:00 3.37 1.80-7.70 (K/uL) Final Lymphs, absolute 09/07/2023 10:08:00 0.93 Below low normal 1.00-4.80 (K/ul) Final Monos, Abs 09/07/2023 10:08:00 0.31 0.00-1.10 (K/uL) Final Eos, Abs 09/07/2023 10:08:00 0.03 0.00-0.70 (K/uL) Final Basos, Abs 09/07/2023 10:08:00 0.03 0.00-0.20 (K/uL) Final Performing Location LABORATORY [facility] [address] [place] [id number]
--- OUTSIDE RECORDS SUMMARY | 2023-10-07 03:03 | External Medical Summary | Summary of Care ---
Author Name Unknown Organization [facility] Address [address] [place] [address] Phone [phone] Care Team Providers Care Junior Marketing Associate Name Role Phone Michael Hinton MD Primary Care Provider [phone] Reason for Visit * Reason Comments Follow Up Encounter Details Date Type Department Care Team (Late st Contact Info) Description 09/04/2023 11:00 AM EST Office Visit Cardiology, [facility] [address] [facility] [place] [address] Leah Aguilera CRNP [address] [place] [address] Chronic diastolic 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 *; Nonrheumatic mitral valve regurgitation; Coronary artery disease involving [place] coronary artery of [place] heart without angina pectoris; Paroxysmal atrial fibrillation (HCC) Allergies Active Allergy Reactions Criticality Noted Date Comments Fabiano Inhibitors Cough 06/09/2017 Carbidopa W-Levodopa 03/17/2021 Constipation Nsaids Rash 05/17/2018 Contraindicated per family caseworker documented as of this encounter (statuses as of 09/04/2023) Medications Medication Sig Dispensed Refills Start Date End Date Status Glucose Blood (ONETOUCH VERIO) STRPIndications:Ty pe 2 diabetes mellitus with hemoglobin A1c goal of less than 8.0% ([facility]) Use up to 4 times a day E11.9 400 Strip 3 08/29/2018 Active ONETOUCH DELICA LANCETS 33G MISCIndications:Ty pe 2 diabetes mellitus with hemoglobin A1c goal of less than 8.0% ([facility]) Use up to 4 times [...] mitral valve regurgitation,Krista nary artery disease involving [place] coronary artery of [place] heart without angina pectoris,Paroxysma l atrial fibrillation [...] Last Assessment & Plan: Followed closely by [facility] hematology. No identified cause of HUNTER. Weekly [...] knees 03/21/2018 Coronary artery disease invo lving [place] coronary artery of [place] heart without angina pectoris 03/21/2018 Last Assessment [...] 07:14 AM ] Major depressive disorder, s kvein episode, moderate 06/21/2021 05/16/2022 Arthropathy of facet [...] scanned document from 11/13/[address] bains, [facility]. 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y [...] AM EST Cardiology Outpatient Visit 09/04/2023 Primary Orthotic Fitter: Dr. 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 Chronic diastolic CHF, NYHA class 3 Mitral regurgitation, grade being mild to severe and very studies over the years mild on most recent echo, 2021 Paroxysmal atrial fibrillation- Eliquis held due to anemia, following with Hematology [facility] (Dr. Manuel) Frequent PACs Prostatic hypertrophy CKD-- follows with nephrology Parkinson's disease with related gait instability and dementia- follows with [facility] Significant anemia- [place] with [facility] [place], gets IV iron [...] hemoptysis. Continues to receive iron infusions per [facility] [place]. Patient is compliant [...] Cognitive dysfunction 08/23/2018 Coronary artery disease involving [place] coronary artery of [place] heart without angina pectoris 03/21/2018 Dementia associated [...] goal of less than 8.0% ([facility]) 07/26/2018 Past Surgical History: Procedure Laterality Date C-/T-SPINE PARAVERTEBRAL FACET INJ, 1 LEVEL 03/11/2015 C-/T-SPINE PARAVERTEBRAL FACET INJ, 1 LEVEL performed by Magdi Campos DO at OR [facility] CARPAL TUNNEL SURGERY Carpal Tunnel repair COLONOSCOPY, DIAGNOSTIC (RECTUM) 03/24/2015 normal, repeat 10 yrs/COLONOSCOPY FLEXIBLE PROXIMAL DIAGNOSTIC performed by Francis Perez MD at ENDOSCOPY [facility] COLONOSCOPY, DIAGNOSTIC (RECTUM) 09/12/2022 benign adenomatous polyp, diverticulosis, repeat 3 yrs / [facility] COLONOSCOPY, GI REFERRAL OP 10/23/2004 normal - repeat 10 years EGD, FLEXIBLE, DIAGNOSTIC N/A 09/09/2022 normal/EGD/[place] INFORMATION hammer toe surgery INFORMATION 10/23/2004 right ankle fusion [place] LAMINECTOMY,GREATER THAN 2 SGMT,CERVICAL 01/25/2021 C3-6 laminectomy and posterior fusion, [facility] [place] LAMINECTOMY,GREATER THAN 2 SGMT,CERVICAL N/A 01/25/2021 [facility] [place] C3-C6 lami REMOVE CATARACT, INSERT LENS PROSTH Right 05/22/2018 right EXTRACAPSULAR CATARACT REMOVAL WITH INTRAOCULAR LENS performed by Jasbir Maurer MD at [facility] REMOVE CATARACT, INSERT LENS PROSTH Left 06/05/2018 left EXTRACAPSULAR CATARACT REMOVAL WITH INTRAOCULAR LENS performed by Jasbir Maurer MD at [facility] REMOVE TONSILS & ADENOIDS, UNDER 12 Tonsillectomy/Adenoids,<12 [...] Carbidopa W-Levodopa Constipation Nsaids Rash Contraindicated per family caseworker Review of Systems: See HPI for pertinent [...] Lab data/imaging study review: Echocardiogram performed 05/01/2022, [facility]: Mild concentric left ventricular hypertrophy, LVEF 60 [...] with Hematology. 3. 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 -Stable, no angina 1. Aspirin on hold [...] post procedurally. 2. Discussed possibly obtaining a DiObex[employer] mobile and checking heart rhythms periodically. Should [...] performance of separately billed services. HALLIE [facility], Department of Cardiology This chart was completed in part utilizing [employer] Speech Voice Recognition Software. Grammatical errors, random [...] 8:00 AM EST Laboratory Lab Mobile Phlebotomy [facility] [address] [place] [address] [facility] Mobile Home Draw [address] [place] [address] 09/07/2023 4:00 PM EST Home Visit ising at [facility] [address] [place] [address] Peggy De, RN [address] [place] [address] 09/12/2023 8:30 AM EST Laboratory Lab Mobile Phlebotomy [facility] [address] [place] [address] [facility] Mobile Home Draw [address] [place] [address] 09/21/2023 8:00 AM EST Laboratory Lab Mobile Phlebotomy [facility] [address] [place] [address] [facility], [facility] Mobile Home Draw [address] [place] [address] 09/21/2023 1:30 PM EST Office Visit Nephrology, [address] [place] [address] Nataly Stone PA-C [address] [place], [place] [address] 09/28/2023 8:00 AM EST Laboratory Lab Mobile Phlebotomy [facility] [address] [place] [address] [facility] Mobile Home Draw [address] [place] [address] 10/05/2023 8:00 AM EST Laboratory Lab Mobile Phlebotomy [facility] [address] [place] [address] [facility], [facility] Mobile Home Draw [address] [place] [address] 10/09/2023 9:30 AM EST Scheduled Telephone [facility], [facility] [address] [place] [address] [facility] Nurse Triage [address] [place] [address] 10/12/2023 8:00 AM EST Laboratory Lab Mobile Phlebotomy [facility] [address] [place] [address] [facility], [facility] Mobile Home Draw [address] [place] [address] 10/19/2023 8:00 AM EST Laboratory Lab Mobile Phlebotomy [facility] [address] [place] [address] [facility], [facility] Mobile Home Draw [address] [place] [address] 11/03/2023 2:00 PM EST Nurse Only Ancillary [facility] [address] [place] [address] [facility], [facility] [address] [place] [address] 03/11/2024 3:15 PM EDT Office Visit Urology, [facility] [address] [place] [address] [...] 023, 03/08/2019, 04/09/2014 CKD PHOS USE SMARTSET 36018 12/27/2023 12/26/2022, 0 06/21/2021 CKD HGB USE SMARTSET 47223 08/31/202408/31, 08/31/2023, 08/24/2023, Additional history exists COLONOSCOPY-EVERY [...] this encounter Medical Devices Implanted Type Area Bleach Plant Operator Device Identifier Shelf Expiration Date Model / Serial / Lot Lens Intraoc 22.5 - [id number] - [id number] Implanted:Qty: 1 on 05/22/2018 by Jasbir Maurer MD at OR [facility] Right: Eye [employer] 11/22/2022 [id number] / [id number] / [id number] Lens Intraoc 21.0 - [id number] - [id number] Implanted:Qty: 1 on 06/05/2018 by Jasbir Maurer MD at OR [facility] Left: Eye [employer] 12/20/2022 [id number] / [id number] / documented as of this encounter Visit Diagnoses Diagnosis Chronic diastolic 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- Primary Nonrheumatic mitral valve regurgitation Coronary artery disease involving [place] coronary artery of [place] heart without angina pectoris Paroxysmal atrial fibrillation [...] Agents on File Name Relationship [facility] Ashley Jose Spouse Health Care Power of Attor mayela Care Teams Junior Marketing Associate Relationship Specialty Start Date End Date Michael Hinton MD [address] [place] [address] PCP - General Family Medicine 08/07/17 documented as of this encounter
--- OUTSIDE RECORDS SUMMARY | 2023-10-07 03:03 | External Medical Summary ---
Author Name Unknown Address Unknown Organization [id number]:LABORATORY [facility] [address] - [address] [place] [address] Laboratory Report Ordering Provider Test Date Status AVNI LUIS 08/24/2023 10:06:00 Final Observation Date Value Abnormality Reference (Units ) Status WBC, Total 08/24/2023 10:06:00 4.71 4.00-10.8 0 (K/uL) Final RBC 08/24/2023 10:06:00 3.12 4.50-5.25 (M/uL) Final Hemoglobin 08/24/2023 10:06:00 10.8 Below low normal 14 .0-16.8 (g/dL) Final HCT 08/24/2023 10:06:00 33.2 Below low normal 40. 0-48.4 (%) Final MCV 08/24/2023 10:06:00 106.4 82.0-99.5 (fL) Final MCH 08/24/2023 10:06:00 34.6 27.0-34.0 (pg) Final MCHC 08/24/2023 10:06:00 32.5 32.0-36.0 (g/dL) Final RDW 08/24/2023 10:06:00 15.2 11.5-15.5 (%) Final Platelets 08/24/2023 10:06:00 211 140-400 (K /uL) Final MPV 08/24/2023 10:06:00 9.0 6.6-11.1 ( fL) Final Performing Location [facility]ORY [facility] [address] 0 - [address] [place] [address]
--- OUTSIDE RECORDS SUMMARY | 2023-10-07 03:04 | External Medical Summary ---
Author Name Unknown Address Unknown Organization [id number]:LABORATORY [facility] - [address] [place] [address] Laboratory Report Ordering Provider Test Date Status AVNI LUIS 07/27/2023 12:52:38 Final Observation Date Value Abnormality Reference (Units ) Status WBC, Total 07/27/2023 12:52:38 8.25 4.00-10.80 (K/uL) Final RBC 07/27/2023 12:52:38 3.16 4.50-5.25 (M/uL) Final Hemoglobin 07/27/2023 12:52:38 10.8 Below low normal 14.0-16.8 (g/dL) Final HCT 07/27/2023 12:52:38 32.7 Below low normal 40.0-48.4 (%) Final MCV 07/27/2023 12:52:38 103.5 82.0-99.5 (fL) Final MCH 07/27/2023 12:52:38 34.2 27.0-34.0 (pg) Final MCHC 07/27/2023 12:52:38 33.0 32.0-36.0 (g/dL) Final RDW 07/27/2023 12:52:38 15.8 11.5-15.5 (%) Final Platelets 07/27/2023 12:52:38 165 140-400 (K/uL) Final MPV 07/27/2023 12:52:38 9.5 6.6-11.1 (fL) Final Nucleated erythrocytes/100 leukocytes [Ratio] in Blood by Automated count 07/27/2023 12:52:38 0 <=0 (/100 WBCs) Final Performing Location LABORATORY [facility] - [address] [place] [address]
--- OUTSIDE RECORDS SUMMARY | 2023-10-07 03:04 | External Medical Summary ---
Author Name Unknown Address Unknown Organization [id number] [address] [place] [address] Laboratory Report Ordering Provider Test Date Status AVNI LUIS 08/03/2023 10:33:00 Final Observation Date Value Abnormality Reference (Units ) Status Nucleated erythrocytes/100 leukocytes [Ratio] in Blood by Automated count 08/03/2023 10:33:00 Final Performing Location [facility] - [address] [place] [id number]
--- OUTSIDE RECORDS SUMMARY | 2023-10-07 03:04 | External Medical Summary ---
Author Name Unknown Address Unknown Organization K0X:LABORATORY [facility] - [address] [place] [address] [address] [facility] [address] Laboratory Report Ordering Provider Test Date Status AVNI LUIS 08/10/2023 11:57:24 Final Observation Date Value Abnormality Reference (Units ) Status SYNC LEUKOCYTES IN BLOOD BY AUTOMATED COUNT 08/10/2023 11:57:24 4.59 4.00-10.80 (K/uL) Final Segs 08/10/2023 11:57:24 70.5 40.0-75.0 (%) Final Lymphs % 08/10/2023 11:57:24 19.0 18.0-42.0 (%) Final Monos 08/10/2023 11:57:24 8.3 1.0-11.0 (%) Final Eosinophils 08/10/2023 11:57:24 0.9 0.0-6.0 (%) Final Basos 08/10/2023 11:57:24 0.4 0.0-2.0 (%) Final Immature Granulocyte, Percent 08/10/2023 11:57:24 0.9 0.0-2.0 (%) Final Absolute Segs 08/10/2023 11:57:24 3.24 1.80-7.70 (K/uL) Final Lymphs, absolute 08/10/2023 11:57:24 0.87 Below low normal 1.00-4.80 (K/ul) Final Monos, Abs 08/10/2023 11:57:24 0.38 0.00-1.10 (K/uL) Final Eos, Abs 08/10/2023 11:57:24 0.04 0.00-0.70 (K/uL) Final Basos, Abs 08/10/2023 11:57:24 0.02 0.00-0.20 (K/uL) Final Immature Granulocytes, Number 08/10/2023 11:57:24 0.04 0.00-0.20 (K/uL) Final Performing Location LABORATORY [facility] - [address] [facility] [address]
--- OUTSIDE RECORDS SUMMARY | 2023-10-07 03:04 | External Medical Summary | Summary of Care ---
Author Name Unknown Organization [facility] Address [address] [place] [address] Phone [phone] Care Team Providers Care Physical Medicine Specialist Name Role Phone Michael Hinton MD Primary Care Provider [phone] Reason for Referral * Precert (Within 10 days (routine)) - Pending Review Specialty Diagnoses / Procedures Referred By Contac t Referred To Contact Radiology Diagnoses Altered mental status Procedures CT HEAD/BRAIN WO CONTRAST Bradleyr, Shannon Riggins MD [address] [address] Referral ID Status Reason Start Date Expiration Date V isits Requested Visits Authorized [id number] Pending Review 08/03/[phone] Encounter Details Date Type Department Care Team Description 08/03/2023 Orders Only Access Center, [place] [address] [facility] *DO NOT REMOVE THIS DEPARTMENT* [place], [place] [id number] Requisition, External Radiology [address] [place] [address] Altered mental status* Allergies Active Allergy Reactions Severity Noted Date Comments Fabiano Inhibitors Cough 06/09/2017 Carbidopa W-Levodopa 03/17/2021 Constipation Nsaids Rash 05/17/2018 Contraindicated per wait staff documented as of this encounter (statuses as of 08/03/2023) Medications Medication Sig Dispensed Refills Start Date End Date Status Glucose Blood (ONETOUCH VERIO) STRPIndications:Ty pe 2 diabetes mellitus with hemoglobin A1c goal of less than 8.0% ([facility]) Use up to 4 times a day E11.9 400 Strip 3 08/29/2018 Active SHEYLAZAC MOODYANTONIETTA PHUHARPER 33G MISCIndications:Ty pe 2 diabetes mellitus with [...] MORNING 90 Tablet 3 01/23/2023 4 Active Dutasteride 0.5 MG Oral Capsule (Avodart) TAKE ONE CAPSULE BY MOUTH EVERY MORNING 90 Capsule 3 12/13/2022 4 Active Betamethasone Dipropionate 0.05 % External OintmentIndication s:Inflamed seborrheic keratosis APPLY TO SKIN LESIONS AND SCALP LESIONS UP TO TWO TIMES A DAY FOR NO LONGER THAN 2 WEEKS AT A TIME FOR ITCH. (THEN TAKE A 2 WEEK BREAK) 45 g 2 05/01/2023 4 Active Torsemide 20 MG Oral Tablet (Demadex)Indicatio ns:Nonrheumatic mitral valve regurgitation,Krista nary artery disease involving [place] coronary artery of [place] heart without angina pectoris,Paroxysma l atrial fibrillation [...] mouth daily. 100 Tablet 3 06/23/2023 Active predniSONE 20 MG Oral Tablet (Deltasone)Indicat ions:Canker sores oral Take 3 tabs for 3 days, 2 tabs for 3 days, 1 tab for 3 days, 1/2 tab for 3 days 20 Tablet 0 07/06/2023 Active Dexamethasone 0.5 MG/5ML Oral Elixir (Decadron)Indicati [...] before bedtime. 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 Last Assessment & Plan: Secondary to Dupixent Chronic kidney disease, stage 3b 023 Overview: Per CKD protocol Type 2 diabetes mellitus with stage 3b c hronic kidney disease 02/27/2023 Overview: Per CKD protocol Flexural atopic dermatitis 11/29/2022 Last Assessment & Plan: Continue Dupixent Atrial fibrillation 10/10/2022 Last Assessment & Plan: Rate controlled -continue metoprolol succinate Not on AC d/t HUNTER and concern for bleeding Urge incontinence 08/24/2022 Hematuria, gross 08/24/2022 Overweight (BMI 25.0-29.9) 07/13/2022 Chronic diastolic heart failure secondar y to coronary artery disease 07/13/2022 Hypertensive heart [...] Last Assessment & Plan: Followed closely by [facility] hematology. No identified cause of HUNTER. [...] Moderate-High Intensity Statin Gastro-esophageal reflux disease without esophagitis 06/21/2021 Last Assessment & Plan: Continue pantoprazole Recurrent cellulitis of lower extremity 02/18/2021 Last Assessment & Plan: On prophylactic Keflex 500 mg daily Wandering atrial pacemaker 02/18/2021 Last Assessment & Plan: Irregular today but rate controlled -? Pt not on any AC. Will d/w team Dementia associated with Parkinson's dis ease 07/15/2020 Last Assessment & Plan: Continue Aricept 10 mg daily BPH with obstruction/lower urinary tract symptoms 01/02/2019 Last Assessment & Plan: Pt unsure [...] below 130/80 07/26/2018 Type 2 diabetes mellitus with hemoglobin A1c goal of less than 8.0% 07/26/2018 Overview: Last hgba1c 5.5 in 02/2022 -continue metformin Primary osteoarthritis of both knees Coronary artery disease invo lving [place] coronary artery of [place] heart without angina pectoris 03/21/2018 Last Assessment & Plan: Stable, Continue metoprolo, atorvastatin No ASA d/t history severe anemia--GI bleeding? Cervical spinal stenosis 08/18/2017 FABIANO (generalized anxiety disorder) 08/18 Last Assessment & Plan: Symptoms stable -continue Lexapro Primary parkinsonism 08/18/2017 Last Assessment & Plan: Baseline -Continue amantadine Followed by Dr. Shannon Bowman via telemedicine every 6 months S/P CABG x 3 08/18/2017 FABIANO inhibitor intolerance 12/04/2015 Dyslipidemia 08/09/2002 documented as of this encounter (statuses as of 08/03/2023) Resolved Problems Problem Noted Date Resolved Date Viral upper respiratory tract infection 08/08/20 22 11/29/2022 Last Assessment & Plan: -resp panel -presume covid + -paxlovid, steroids Hx of Salmonella infection 05/16/202207/13 Hematuria 05/16/2022 05/20/2022 Hypertensive kidney disease with stage 3a chronic kidney disease 04/20/2022 05/20/2022 Type 2 diabetes mellitus wit h stage 3a chronic kidney disease, without long-term current use of insulin 06/21/202102/20 Overview: Per CKD protocol Last Assessment & [...] 03/08/2019 07:14 AM ] Major depressive disorder, single episode, moder ate 06/21/2021 05/16/2022 Arthropathy of facet joint 06/21/202105/20 Open wound of heel, right, subsequent encounter 04/27/2021 11/02/2021 DDD (degenerative disc disease), cervical 202004/27/2021 Chronic kidney disease, stage 3a 02/01/2021 03/01/2023 Overview: Per CKD protocol Dementia with Lewy bodies (CODE) 07/07/2020 07/15/2020 Type 2 diabetes mellitus with diabetic dermatiti s 01/31/2019 02/18/2021 Type 2 diabetes mellitus wit h diabetic peripheral angiopathy without gangrene 01/31/2019 03/27/2020 Seborrheic dermatitis 10/26/2018 11/02/2021 Cognitive dysfunction 08/23/2018 07/15/2020 Prediabetes 06/29/2018 07/26/2018 Epidermal cyst 09/21/2017 10/27/2017 Dyslipidemia, goal LDL below 70 03/20/2013 06/09/2017 FABINAO inhibitor intolerance 11/13/20122015 Overview: See scanned document from 11/13/[address] bains, [facility]. 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 y lesion 10/15/2012 08/23/2018 Dyslipidemia, goal LDL below 100 08/16/2012 08/16/2012 Spinal stenosis, unspecified region other than c ervical 02/28/2011 08/18/2017 Medullary sponge kidney 01/05/2010 04/05/20 23 Lumbago 01/05/2010 08/18/2017 Overview: Spondylithiasis and diffuse DJD Primary localized osteoarthrosis, lower leg 01/2208/18/2017 Irritable bowel syndrome 02/11/2008 017 Impotence of organic origin 02/11/200807/24 ADVANCE DIRECTIVE INFORMATION 07/28/2005 Overview: No, Advance Directive brochure given to patient. HTN, goal below 150/90 08/09/2002 8 Other psoriasis 08/09/2002 10/19/2015 Screening for prostate cancer 08/09/2002 documented as of this encounter (statuses as of 08/03/2023) Immunizations Name Administration Dates Next Due COVID-19 mRNA, LNP-s, No Pre serve, 2-Dose Series (GCW) 11/03/2021,12/19/2020,11/28/2020 Covid-19 Ad26, Single Dose ([employer]/J&J) 12/19/2020,11/28/2020 DTaP Dipth/Tet/Acell Pertussis (Infanrix), Peds 10/24/2019 [...] drink = 0.6 oz pur e alcohol) Food Insecurity Answer Date Recorded Within the past 12 months, y ou worried that your food would run out before you got money to buy more. Never true 11/02/2022 Within the past 12 months, t he food you bought just didn't last and you didn't have money to get more. Never true 11/02/2022 Sex Assigned at Date Recorded Male 01/31/2019 7:38 AM E DT Job Start Date Occupation Industry Not on file Not on file Not on file documented as of this encounter Plan of Treatment Upcoming Encounters Date Type Specialty Care Team Description 08/08/2023 Laboratory [place] [facility] Draw [address] [place] [address] 08/08/2023 Imaging Radiology 08/10/2023 [facility] De [facility] [address] [facility] [address] 08/17/2023 Laboratory Laboratory [place] [facility] [address] [place] [address] 08/24/2023 Laboratory [place] [facility] [address] [place] [address] 08/29/2023 Office Visit Urology Kalpesh Funes MD [address] [place] [address] 08/31/2023 Laboratory Laboratory Processing [facility] [address] [place] [address] 08/31/2023 Scheduled Telephone [facility] Nurse Triage [address] [place] [address] 09/04/2023 Office Visit Cardiology Leah Aguilera CRNP [address] [place] [address] 09/07/2023 Laboratory Laboratory Processing [facility] [address] [place] [address] 09/14/2023 Laboratory Laboratory Processing [facility] [address] [place] [address] 09/21/2023 Laboratory Laboratory Processing [facility] [address] [place] [address] 09/21/2023 Office Visit Nephrology Nataly Stone PA-C [address] [place] [address] 09/28/2023 Laboratory Laboratory Processing [facility] [address] [place] [address] 10/05/2023 Laboratory Laboratory Processing [facility] [address] [place] [address] 10/12/2023 Laboratory Laboratory [place] [facility] [place] Draw [address] [place] [address] 10/19/2023 Laboratory Laboratory [place] [facility] [place] [address] [place] [address] 11/03/2023 Nurse Only Ancillary Nurse Jeronimo [facility] [address] [place] [address] Scheduled Orders Name Type Priority Associated Diagnoses Orde r Schedule CT HEAD/BRAIN WO CONTRAST Medical Imaging Routine Altered mental status Expected: 08/03/2023, Expires: 09/03/2024 Scheduled Procedures Name Priority Associated Diagnoses Date/Ti me COLONOSCOPY FLEXIBLE PROXIMAL DIAGNOSTIC Recall History of colon polyps Health Maintenance Due Date Last Done Comments Hepatitis C Screening 1963 Diabetic Foot Exam 03/27/2021 03/27/2020, 08/23/2018 COVID-19 Vaccine ( season) 2023 11/03/2021, 12/19/2020, 12/19/2020, Additional history exists HbA1c 10/12/2023 04/12/2023, 0303/2023, 03/22/2022, Additional history exists DIABETES-EYE EXAM 11/01/2023 11/01/2022, , 08/04/2011, Additional history exists Depression Screening 11/02/2023 11/02/2022 GFR 11/04/2023 05/04/2023, 03/23, 03/16/2023, Additional history exists Albumin/Creatinine Ratio 12/27/2023 023, 03/08/2019, 04/09/2014 CKD PHOS USE SMARTSET 37374 12/27/2023 12/26/2022, 0 06/21/2021 CKD HGB USE SMARTSET 69717 08/03/202408/03, 08/03/2023, 07/27/2023, Additional history exists COLONOSCOPY-EVERY 3 YRS AGES [...] on patient's age to complete this topic Hepatitis B Aged Out No longer eligi ble based on patient's age to complete this topic MENINGOCOCCAL (MENACTRA/MENVEO) Aged Out No longer eligible based on patient's age to complete this topic documented as of this encounter Medical Devices Implanted Type Area Land Surveying Manager Device Identifier Shelf Expiration Date Model / Serial / Lot Lens Intraoc 22.5 - [id number] - [id number] Implanted:Qty: 1 on 05/22/2018 by Jasbir Maurer MD at OR [facility] Right: Eye [employer]OMB 11/22/2022 [id number] / [id number] / [id number] Lens Intraoc 21.0 - [id number] - [id number] Implanted:Qty: 1 on 06/05/2018 by Jasbir Maurer MD at OR [facility] Left: Eye BAUSCH [employer] LOMB 12/20/2022 [id number] / [id number] / documented as of this encounter Visit Diagnoses Diagnosis Altered mental status- Primary documented in this encounter Advance Directives Latest [...] Care Power of Attor mayela Care Teams Physical Medicine Specialist Relationship Specialty Start Date End Date Michael Hinton MD [address] [place] [address] PCP - General Family Medicine 08/07/17 documented as of this encounter
--- OUTSIDE RECORDS SUMMARY | 2023-10-07 03:04 | External Medical Summary | Summary of Care ---
Author Name Unknown Organization [facility] Address [address] [place] [address] Phone [phone] Care Team Providers Care Consulting Systems Engineer Name Role Phone Michael Hinton MD Primary Care Provider [phone] Reason for Visit * Reason Onset Date Comments [facility]: Maintenance 08/11/2023 Encounter Details Date Type Department Care Team Description 08/11/2023 Scheduled Telephone [facility], [facility] [address] [place] [address] Coordinator, [facility] [address] [place] [address] Allergies Active Allergy Reactions Severity Noted Date Comments Fabiano Inhibitors Cough 06/09/2017 Carbidopa W-Levodopa 03/17/2021 Constipation Nsaids Rash 05/17/2018 Contraindicated per poultry sexer documented as of this encounter (statuses as of 08/11/2023) Medications Medication Sig Dispensed Refills Start Date [...] MORNING 90 Capsule 3 12/13/2022 4 Active Torsemide 20 MG Oral Tablet (Demadex)Indicatio ns:Nonrheumatic mitral valve regurgitation,Krista nary artery disease involving [place] coronary artery of [place] heart without angina pectoris,Paroxysma l atrial fibrillation [...] BREAK) 45 g 2 08/07/2023 4 Active documented as of this encounter (statuses as of 08/11/2023) Active Problems Problem Noted Date Paroxysmal atrial [...] Last Assessment & Plan: Followed closely by [facility] hematology. No identified cause of HUNTER. [...] both knees Coronary artery disease invo lving [place] coronary artery of [place] heart without angina pectoris 03/21/2018 Last Assessment [...] as of this encounter (statuses as of 08/11/2023) Resolved Problems Problem Noted Date Resolved Date [...] below 70 03/20/2013 06/09/2017 FABIANO inhibitor intolerance 11/13/20122015 Overview: See scanned document from 11/13/[address] bains, [facility] [place]. 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 [facility] Telephonic Nurse Follow-Up Call [facility] Subprogram: Primary [facility] at Home Follow Up Call Type: Routine follow up call / Status Check Acute issue requiring follow-up call: Other: weight increase Objective: 08/10/2023 11:09 AM 07/19/2023 8:55 PM 07/06/2023 11:23 AM 05/23/2023 10:07 AM 05/02/2023 11:47 AM VITALS ACROSS ENCOUNTERS BP 148/70 140/68 122/60 120/64 132/46 Pulse 82 68 60 60 Weight 76.6 kg 74.4 kg BMI 28.09 kg/m2 27.29 kg/m2 Lab Results Component Value Date WBC AUTO - [facility] 4.59 08/10/2023 Lab Results Component Value Date WBC AUTO - [facility] 4.59 08/10/2023 HGB - [facility] 11.2 (L) 08/10/2023 PLATELET AUTO - [facility] 160 08/10/2023 No results found for: SODIUM - [facility], POTASSIUM - [facility], MAGNESIUM - [facility], CO2 - [facility], CREATININE - [facility], ESTIMATED GLOMERULAR FILTRATION RATE - [facility], ALBUMIN - [facility],AST - [facility], ALT - [facility], ALKALINE PHOSPHATASE - [facility] No results found for: PRO BNP, LEFT VENTRICULAR EJECTION FRACTION Remote Patient Monitoring: [facility] Scale: daily weights Oxygen Needs: NO supplemental oxygen needs identified DME Needs: NO DME needs identified Medications: No medication or dose adjustments made during acute episode Subjective: Condition Status: Symptoms resolved and back to baseline Current Concerns: Spoke to spouse and states he is doing good weight is down, Last BM today, educated on 2gm sodium 64 oz fluid restriction, denies SOB or edema and encouraged to call with any issues Disposition: Issue resolved. All appropriate follow up scheduled. Future Visits Scheduled: Future Appointments-next 60 days Date/Time Provider Specialty Dept Phone 08/11/2023 3:45 PM [facility] [place] Specialist [facility] [phone] 08/17/2023 8:00 AM [facility] Laboratory Processing [phone] 08/24/2023 8:00 AM [facility] Laboratory Processing [phone] 08/29/2023 3:15 PM Kalpesh Funes MD Urology [phone] 08/31/2023 8:00 AM [facility] Laboratory Processing [phone] 08/31/2023 11:00 AM [facility] Nurse Triage [place] [facility] [phone] 09/04/2023 11:00 AM (Arrive by 10:45 AM) HALLIE Marshall Cardiology [phone] 09/07/2023 8:00 AM [facility] Laboratory Processing [phone] 09/07/2023 4:00 PM Peggy De RN [facility] [phone] 09/14/2023 8:00 AM [facility] Laboratory Processing [phone] 09/21/2023 8:00 AM [facility] Laboratory Processing [phone] 09/21/2023 1:30 PM (Arrive by 1:15 PM) Nataly Stone PA-C Nephrology [phone] 09/28/2023 8:00 AM [facility] Laboratory Processing [phone] 10/05/2023 8:00 AM [facility] Laboratory Processing [phone] 10/12/2023 8:00 AM [facility] Draw [facility] Laboratory Processing [phone] 10/19/2023 8:00 AM [facility] Draw [facility] Laboratory Processing [phone] 11/03/2023 2:00 PM Nurse Annual Wellness [facility] Ancillary [phone] Regina Tobar LPN documented in this encounter Plan of Treatment Upcoming Encounters Date Type Specialty Care Team Description 08/17/2023 Laboratory Laboratory Processing c, [facility] [address] [place] [address] 08/24/2023 Laboratory Laboratory Processing [facility], [facility] [address] [place] [address] 08/29/2023 Office Visit Urology Kalpesh Funes MD [address] [address] 08/31/2023 Laboratory Laboratory Processing [facility], [facility] [address] [place] [address] 08/31/2023 Scheduled Telephone [facility] Nurse Triage [address] [place] [address] 09/04/2023 Office Visit Cardiology Leah Aguilera CRNP [address] [facility] [place] [place] [address] 09/07/2023 Laboratory Laboratory Processing [facility], [facility] [address] [place] [address] 09/07/2023 Home Visit [facility] Peggy De RN [address] [place] [address] 09/14/2023 Laboratory Laboratory Processing [facility], [facility] [address] [place] [address] 09/21/2023 Laboratory Laboratory Processing [facility], [facility] [address] [place] [address] 09/21/2023 Office Visit Nephrology Nataly Stone PA-C [address] [place] [address] 09/28/2023 Laboratory Laboratory Processing [facility], [facility] [address] [place] [address] 10/05/2023 Laboratory Laboratory Processing [facility], [facility] [address] [place] [address] 10/12/2023 Laboratory Laboratory Processing [facility], [facility] [address] [place] [address] 10/19/2023 Laboratory Laboratory Processing [facility], [facility] [address] [place] [address] 11/03/2023 Nurse Only Ancillary Jeronimo Nurse [facility] [address] [place] [address] Scheduled Procedures Name Priority Associated Diagnoses Date/Ti me COLONOSCOPY FLEXIBLE PROXIMAL DIAGNOSTIC Recall History of colon polyps Health Maintenance Due Date Last Done Comments Hepatitis C Screening 1963 Diabetic Foot Exam 03/27/2021 03/27/2020, 08/23/2018 COVID-19 Vaccine ( season) 2023 11/03/2021, 12/19/2020, 12/19/2020, Additional history exists HbA1c 10/12/2023 04/12/2023, 03/0 03/2023, 03/22/2022, Additional history exists DIABETES-EYE EXAM 11/01/2023 11/01/2022, , 08/04/2011, Additional history exists Depression Screening 11/02/2023 11/02/2022 GFR 11/04/2023 05/04/2023, 03/23, 03/16/2023, Additional history exists Albumin/Creatinine Ratio 12/27/2023 023, 03/08/2019, 04/09/2014 CKD PHOS USE SMARTSET 63054 12/27/2023 12/26/2022, 0 06/21/2021 CKD HGB USE SMARTSET 61672 08/10/202408/10, 08/10/2023, 08/03/2023, Additional history exists COLONOSCOPY-EVERY 3 YRS AGES [...] this encounter Medical Devices Implanted Type Area Multicultural Manager Device Identifier Shelf Expiration Date Model / Serial / Lot Lens Intraoc 22.5 - [id number] - [id number] Implanted:Qty: 1 on 05/22/2018 by Jasbir Maurer MD at OR [facility] Right: Eye [employer] 11/22/2022 [id number] / [id number] / [id number] Lens Intraoc 21.0 - [id number] - [id number] Implanted:Qty: 1 on 06/05/2018 by Jasbir Maurer MD at OR [facility] Left: Eye BAUSCH [employer] LOMB 12/20/2022 [id number] / [id number] / documented as of this encounter Advance [...] Relationship Healthcare Agent Relationshi p Communication Ashley Fantasma Jose Spouse Health Care Power of Attor [place] Care Teams Consulting Systems Engineer Relationship Specialty Start Date End Date Michael Hinton MD [address] [place] [address] PCP - General Family Medicine 08/07/17 documented as of this encounter
--- OUTSIDE RECORDS SUMMARY | 2023-10-07 03:04 | External Medical Summary ---
Author Name Unknown Address Unknown Organization K0G:LABORATORY [facility] [address] [place] [address] Laboratory Report Ordering Provider Test Date Status AVNI LUIS 08/03/2023 10:33:00 Final Observation Date Value Abnormality Reference (Units ) Status WBC, Total 08/03/2023 10:33:00 5.72 4.00-10.8 0 (K/uL) Final RBC 08/03/2023 10:33:00 3.27 4.50-5.25 (M/uL) Final Hemoglobin 08/03/2023 10:33:00 11.2 Below low normal 14 .0-16.8 (g/dL) Final HCT 08/03/2023 10:33:00 34.0 Below low normal 40. 0-48.4 (%) Final MCV 08/03/2023 10:33:00 104.0 82.0-99.5 (fL) Final MCH 08/03/2023 10:33:00 34.3 27.0-34.0 (pg) Final MCHC 08/03/2023 10:33:00 32.9 32.0-36.0 (g/dL) Final RDW 08/03/2023 10:33:00 15.9 11.5-15.5 (%) Final Platelets 08/03/2023 10:33:00 176 140-400 (K /uL) Final MPV 08/03/2023 10:33:00 9.1 6.6-11.1 ( fL) Final Performing Location LABORATORY [facility] [address] [place] [address]
--- OUTSIDE RECORDS SUMMARY | 2023-10-07 03:04 | External Medical Summary | Summary of Care ---
Author Name Unknown Organization [facility] Address [address] [place] [address] Phone [phone] Care Team Providers Care Attractions Associate Name Role Phone Michael Hinton MD Primary Care Provider [phone] Reason for Visit * Reason Comments Medication Refill Encounter Details Date Type Department Care Team Description 08/06/2023 Refill Dermatology [facility] [address] [facility] [place] [address] April Still [facility] [address] Inflamed seborrheic keratosis Allergies Active Allergy Reactions Severity Noted Date Comments Fabiano Inhibitors Cough 06/09/2017 Carbidopa W-Levodopa 03/17/2021 Constipation Nsaids Rash 05/17/2018 Contraindicated per service desk associate documented as of this encounter (statuses as of 08/07/2023) Medications Medication Sig Dispensed Refills Start Date [...] IN THE EVENING 90 Tablet 3 02/16/2023 04/26/20 24 Active Escitalopram Oxalate 20 MG Oral Tablet (Lexapro) TAKE ONE TABLET BY MOUTH EVERY MORNING 90 Tablet 3 01/23/2023 01/23/20 24 Active Dutasteride 0.5 MG Oral Capsule (Avodart) TAKE ONE CAPSULE BY MOUTH EVERY MORNING 90 Capsule 3 12/13/2022 12/13/19 24 Active Torsemide 20 MG Oral Tablet (Demadex)Indicati ons:Nonrheumatic mitral valve regurgitation,Cor onary artery disease involving [place] coronary artery of [place] heart without angina pectoris,Paroxysm al atrial fibrillation [...] 06/23/2023 Active predniSONE 20 MG Oral Tablet (Deltasone)Indica tions:Canker sores oral Take 3 tabs for 3 days, 2 tabs for 3 days, 1 tab for 3 days, 1/2 tab for 3 days 20 Tablet 0 07/06/2023 Active Dexamethasone 0.5 MG/5ML Oral Elixir (Decadron)Indicat [...] 45 g 2 08/07/2023 08/06/20 24 Active Betamethasone Dipropionate 0.05 % External OintmentIndicatio ns:Inflamed seborrheic keratosis APPLY TO SKIN LESIONS AND SCALP LESIONS UP TO TWO TIMES A DAY FOR NO LONGER THAN 2 WEEKS AT A TIME FOR ITCH. (THEN TAKE A 2 WEEK BREAK) 45 g 2 05/01/2023 08/06/20 23 Discontinu ed(Refill) documented as of this encounter (statuses as of 08/07/2023) Active Problems Problem Noted Date Paroxysmal atrial [...] Last Assessment & Plan: Followed closely by [facility] hematology. No identified cause of [...] both knees Coronary artery disease invo lving [place] coronary artery of [place] heart without angina pectoris 03/21/2018 Last Assessment [...] as of this encounter (statuses as of 08/07/2023) Resolved Problems Problem Noted Date Resolved Date [...] scanned document from 11/13/[address] bains, [facility] [place]. 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 (THEN TAKE A 2 WEEK BREAK) Authorizing Provider: APRIL STILL * Telephone Encounter - Marla Kulkarni LPN - 08/07/2023 8:47 AM EDTPending Prescriptions: Disp Refills Betamethasone Dipropionate 0.05 % External*45 g 2 Sig: APPLY TOSKIN LESIONS AND SCALP LESIONS UP TO TWO TIMES A DAY FOR NO LONGER THAN 2 WEEKS AT A TIME FOR ITCH.(THEN TAKE A 2 WEEK BREAK) documented in this encounter Plan of Treatment Upcoming Encounters Date Type Specialty Care Team Description 08/08/2023 Laboratory Laboratory Processing [facility], [facility] [address] [place] [address] 08/08/2023 Imaging Radiology 08/10/2023 Home Visit [facility] Peggy De RN [address] [place] [address] 08/17/2023 Laboratory Laboratory Processing [facility], [facility] [address] [place] [address] 08/24/2023 Laboratory Laboratory Processing [facility], [facility] Draw [address] [place] [address] 08/29/2023 Office Visit Urology Kalpesh Funes MD [address] [facility] [address] [place] [address] 08/31/2023 Laboratory Laboratory Processing [facility], [facility] Draw [address] [place] [address] 08/31/2023 Scheduled Telephone [facility] Nurse Triage [address] [place] [address] 09/04/2023 Office Visit Cardiology Willy, HALLIE Retana [address] [place] [address] 09/07/2023 Laboratory Laboratory Processing [facility], [facility] Draw [address] [place] [address] 09/14/2023 Laboratory Laboratory Processing [facility] [address] [place] [address] 09/21/2023 Laboratory Laboratory Processing [facility], [facility] Draw [address] [place] [address] 09/21/2023 Office Visit Nephrology Nataly Stone PA-C [address] [place] [address] 09/28/2023 Laboratory Laboratory Processing [facility], [facility] Draw [address] [place] [address] 10/05/2023 Laboratory Laboratory Processing [facility], [facility] [address] [place] [address] 10/12/2023 Laboratory Laboratory Processing c, [facility] [address] [place] [address] 10/19/2023 Laboratory Laboratory Processing [facility], [facility] Draw [address] [place] [address] 11/03/2023 Nurse Only Ancillary Nurse [facility] [address] [place] [address] Scheduled Procedures Name Priority Associated Diagnoses Date/Ti [...] 023, 03/08/2019, 04/09/2014 CKD PHOS USE SMARTSET 60527 12/27/2023 12/26/2022, 0 06/21/2021 CKD HGB USE SMARTSET 80860 08/03/202408/03, 08/03/2023, 07/27/2023, Additional history exists COLONOSCOPY-EVERY [...] this encounter Medical Devices Implanted Type Area Electronics Worker Device Identifier Shelf Expiration Date Model / Serial / Lot Lens Intraoc 22.5 - [id number] - [id number] Implanted:Qty: 1 on 05/22/2018 by Jasbir Maurer MD at OR [facility] Right: Eye [employer] 11/22/2022 [id number] / [id number] / [id number] Lens Intraoc 21.0 - [id number] - [id number] Implanted:Qty: 1 on 06/05/2018 by Jasbir Maurer MD at OR [facility] Left: Eye [employer]OM[employer] 12/20/2022 [id number] / [id number] / documented as of this encounter Visit Diagnoses Diagnosis Inflamed seborrheic keratosis documented in this encounter Advance Directives Latest [...] Care Power of Attor mayela Care Teams Attractions Associate Relationship Specialty Start Date End Date Michael Hinton MD [address] [place] [address] PCP - General Family Medicine 08/07/17 documented as of this encounter
--- OUTSIDE RECORDS SUMMARY | 2023-10-07 03:04 | External Medical Summary ---
Author Name Unknown Address Unknown Organization [id number]:[facility]ORY [facility] [address] - [address] [place] [address] Laboratory Report Ordering Provider Test Date Status AVNI LUIS 08/03/2023 10:33:00 Final Observation Date Value Abnormality Reference (Units ) Status SYNC LEUKOCYTES IN BLOOD BY AUTOMATED COUNT 08/03/2023 10:33:00 5.72 4.00-10.80 (K/uL) Final Segs 08/03/2023 10:33:00 78.8 Above high normal 40.0-75.0 (%) Final Lymphs % 08/03/2023 10:33:00 12.2 Below low normal 18.0-42.0 (%) Final Monos 08/03/2023 10:33:00 7.9 1.0-11.0 (%) Final Eosinophils 08/03/2023 10:33:00 0.9 0.0-6.0 (%) Final Basos 08/03/2023 10:33:00 0.2 0.0-2.0 (%) Final Absolute Segs 08/03/2023 10:33:00 4.51 1.80-7.70 (K/uL) Final Lymphs, absolute 08/03/2023 10:33:00 0.70 Below low normal 1.00-4.80 (K/ul) Final Monos, Abs 08/03/2023 10:33:00 0.45 0.00-1.10 (K/uL) Final Eos, Abs 08/03/2023 10:33:00 0.05 0.00-0.70 (K/uL) Final Basos, Abs 08/03/2023 10:33:00 0.01 0.00-0.20 (K/uL) Final Performing Location [facility] [address] [place] [address]
--- OUTSIDE RECORDS SUMMARY | 2023-10-07 03:04 | External Medical Summary | Summary of Care ---
Author Name Unknown Organization [facility] Address [address] [place] [address] Phone [phone] Care Team Providers Care Ruling Machine Feeder Name Role Phone Michael Hinton MD Primary Care Provider [phone] Reason for Visit * Reason Onset Date Comments [facility]: Maintenance 08/10/2023 Encounter Details Date Type Department Care Team Description 08/10/2023 Telephone [facility], [facility] [address] [facility] [place] [id number] [facility], Nurse [facility] [address] [place] [id number] [facility]: Maintenance Allergies Active Allergy Reactions Severity Noted Date Comments Fabiano Inhibitors Cough 06/09/2017 Carbidopa W-Levodopa 03/17/2021 Constipation Nsaids Rash 05/17/2018 Contraindicated per controlled atmospheric furnace brazer documented as of this encounter (statuses as of 08/10/2023) Medications Medication Sig Dispensed Refills Start Date [...] mitral valve regurgitation,Krista nary artery disease involving [place] coronary artery of [place] heart without angina pectoris,Paroxysma l atrial fibrillation [...] as of this encounter (statuses as of 08/10/2023) Active Problems Problem Noted Date Paroxysmal atrial [...] Last Assessment & Plan: Followed closely by [facility] hematology. No identified cause of HUNTER. Weekly [...] both knees Coronary artery disease invo lving [place] coronary artery of [place] heart without angina pectoris 03/21/2018 Last Assessment [...] as of this encounter (statuses as of 08/10/2023) Resolved Problems Problem Noted Date Resolved Date [...] scanned document from 11/13/[address] [place] [facility] [place] 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 [facility] trigger for weight increase today 5 lbs in 5 days TT to RNRHIANNON who is seeing pt today to make aware documented in this encounter Plan of Treatment Upcoming Encounters Date Type Specialty Care Team Description 08/10/2023 Home Visit [facility] Peggy De RN [address] [facility] [place] [address] 08/11/2023 Scheduled Telephone [facility], Snehal Tafoya [address] [facility] [place] [address] 08/17/2023 Laboratory Laboratory Processing [facility] Mobile Home Draw [address] [place] [address] 08/24/2023 Laboratory Laboratory Processing [facility] Draw [address] [place] [address] 08/29/2023 Office Visit Urology Kalpesh Funes MD [address] [place] [address] 08/31/2023 Laboratory Laboratory Processing [facility] [address] [place] [address] 08/31/2023 Scheduled Telephone [facility] Nurse Triage [address] [place] [address] 09/04/2023 Office Visit Cardiology Leah Aguilera CRNP [address] [place] [address] 09/07/2023 Laboratory Laboratory Processing [facility], [facility] [address] [place] [address] 09/07/2023 Home Visit [facility] Peggy De RN [address] [place] [address] 09/14/2023 Laboratory Laboratory Processing [facility] [address] [place] [address] 09/21/2023 Laboratory Laboratory Processing [facility] [address] [place] [address] 09/21/2023 Office Visit Nephrology Nataly Stone PA-C [address] [place] [address] 09/28/2023 Laboratory Laboratory Processing [facility] [address] [place] [address] 10/05/2023 Laboratory Laboratory Processing [facility] [address] [place] [address] 10/12/2023 Laboratory Laboratory Processing [facility] Mobile Home Draw [address] [place] [address] 10/19/2023 Laboratory Laboratory Processing [facility], [facility] Home Draw [address] [place] [address] 11/03/2023 Nurse Only Ancillary [facility]imo Nurse [facility] [address] [place] [address] Scheduled Procedures Name Priority Associated Diagnoses Date/Ti [...] 023, 03/08/2019, 04/09/2014 CKD PHOS USE SMARTSET 14627 12/27/2023 12/26/2022, 0 06/21/2021 CKD HGB USE SMARTSET 72632 08/03/202408/03, 08/03/2023, 07/27/2023, Additional history exists COLONOSCOPY-EVERY [...] this encounter Medical Devices Implanted Type Area Asset Protection Officer Device Identifier Shelf Expiration Date Model / Serial / Lot Lens Intraoc 22.5 - [id number] - [id number] Implanted:Qty: 1 on 05/22/2018 by Jasbir Maurer MD at OR [facility] Right: Eye [employer] 11/22/2022 [id number] / [id number] / [id number] Lens Intraoc 21.0 - [id number] - [id number] Implanted:Qty: 1 on 06/05/2018 by Jasbir Maurer MD at OR [facility] Left: Eye [employer]OM[employer] 12/20/2022 [id number] / [id number] / documented as of this encounter Advance [...] Agents on File Name Relationship Healthcare Agent [facility] Communication Ashley Jose Spouse Health Care Power of Attor mayela Care Teams Ruling Machine Feeder Relationship Specialty Start Date End Date Michael Hinton MD [address] [place] [address] PCP - General Family Medicine 08/07/17 documented as of this encounter
--- OUTSIDE RECORDS SUMMARY | 2023-10-07 03:04 | External Medical Summary ---
Author Name Unknown Address Unknown Organization K01:[facility] [place] [address] [place] [address] Laboratory Report Ordering Provider Test Date Status AVNI LUIS 08/10/2023 11:57:24 Final Observation Date Value Abnormality Reference (Units ) Status Ferritin 08/10/2023 11:57:24 241 30-400 (ng /mL) Final Performing Location [facility] [place] [address] [place] [address]
--- OUTSIDE RECORDS SUMMARY | 2023-10-07 03:04 | External Medical Summary | Summary of Care ---
Author Name Unknown Organization [facility] Address [address] [place] [address] Phone [phone] Care Team Providers Care Channel Marketing Coordinator Name Role Phone Michael Hinton MD Primary Care Provider [phone] Reason for Visit * Reason Comments [facility]: Maintenance Encounter Details Date Type Department Care Team Description 08/10/2023 Home Visit [facility], [facility] [address] [place] [address] Peggy De RN [address] [place] [address] Allergies Active Allergy Reactions Severity Noted Date Comments Fabiano Inhibitors Cough 06/09/2017 Carbidopa W-Levodopa 03/17/2021 Constipation Nsaids Rash 05/17/2018 Contraindicated per home health assistant documented as of this encounter (statuses as [...] mitral valve regurgitation,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 No identified cause of HUNTER. 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 [...] mRNA, LNP-s, No Pre serve, 2-Dose Series ([employer]) 11/03/2021,12/19/2020,11/28/2020 Covid-19 Ad26, Single Dose (Donde/J&J) 12/19/2020,11/28/2020 DTaP Dipth/Tet/Acell Pertussis (Infanrix), Peds 10/24/2019 [...] Sign Reading Time Taken Comments Blood Pressure 148/70 08/10/2023 11:09 AM EDT Pulse 82 08/10/2023 11:09 AM EDT Temperature 36.3 C (97.4 F) 08/10/2023 1 1:09 AM EDT Respiratory Rate 18 08/10/2023 11:0 9 AM EDT Oxygen Saturation 98% 08/10/2023 11: 09 AM EDT Inhaled Oxygen Concentration - - Weight 76.6 kg (168 lb 12.8 oz) 023 11:09 AM EDT Height - - Body Mass Index 28.09 12/01/2022 10:58 AM EST documented in this encounter Progress Notes * Peggy De RN - 08/10/2023 9:15 AM EDT Images from the original note were not included. [facility] Pollution Control Chemist Visit Date: 08/10/2023 Time: 9:15 AM Name: Jesus Jose : 1945 Current Concerns: Pt seen for return RNCM visit Reports he had a fall last week - lost balance and was unable to catch him self with the walker Has scabbed abrasion on left knee, otherwise denies injury Son in law assisted him off the floor Denies hitting head Noted weight increasing since last week No increased edema Denies increased SOB or abdominal bloating He feels it may be because he was unsteady on the scale Would like to continue to monitor tomorrow and see if continues to increase Vitals are stable Lungs clear bilaterally Continues to have weekly labs done and monthly transfusions Pt reports he continues to have fatigue, low energy and poor balance reports he has done "everything" including PT, but is stabilized Pt reports he continues to have mouth sore and completed course of dexamethasone with no change. Also using chlorohexadine rinse with little effectiveness TE sent to PCP regarding this, ? Further tx options? Physical Exam: BP 148/70 | Pulse 82 | Temp 36.3 C (97.4 F) | Resp 18 | Wt 76.6 kg (168 lb 12.8 oz) | SpO2 98% | BMI 28.09 kg/m | BSA 1.87 m Pain 0 Physical Exam Constitutional: General: He is not in acute distress. Cardiovascular: Rate and Rhythm: Normal rate. Rhythm irregular. Pulses: Normal pulses. Heart sounds: Normal heart sounds. Pulmonary: Effort: Pulmonary effort is normal. Breath sounds: Normal breath sounds. Abdominal: General: Bowel sounds are normal. Palpations: Abdomen is soft. Musculoskeletal: Right lower leg: Edema (+1) present. Left lower leg: Edema (trace) present. Skin: General: Skin is warm and dry. Neurological: Mental Status: He is alert. Mental status is at baseline. Problems/Symptoms: Review of Systems Constitutional: Positive for fatigue (low energy). HENT: Positive for hearing loss. Eyes: Negative. Respiratory: Positive for shortness of breath (MUSTAFA - at baseline). Cardiovascular: Positive for leg swelling. Gastrointestinal: Negative. Endocrine: Negative. Genitourinary: Negative. Musculoskeletal: Positive for arthralgias and gait problem (poor balance). Skin: Negative. Hematological: Negative. Medication Reconciliation: (See medication list) Does patient take medications as ordered: Yes Patient Well Being: PHQ2/9: No questionnaires available. No change in living situation Did have a fall last week - noted above [facility]-10 Com[facility] Reason Completed: Status post fall [facility]-10 ([facility]) Fall Risk Assessment Tool Age 65+: Yes (08/10/231199) Diagnosis (3 or more co-existing): Yes (08/10/231199) Prior history of falls within 3 months: Yes (08/10/231199) Incontinence: No (08/10/231199) Visual impairment: No (08/10/231199) Impaired functional mobility: Yes (08/10/231199) Environmental hazards: No (08/10/231199) Poly Pharmacy (4 or more prescriptions - any type): Yes (08/10/231199) Pain affecting level of function: No (08/10/231199) Cognitive impairment: Yes (08/10/231199) Score - a score of 4 or more is considered at risk for fallin (08/10/231199) [facility]-10 Interventions: Fall education provided, reviewed/provided Fall brochure Advanced Care Planning: No documentation, ACP on file. Patient's Goals of Care: Use cane instead of walker Have more energy Do my yardwork Reinforcement/Education: Educated on home safety: Create a [...] mobile phlebotomy to draw weekly cbcd and ferritin O2 2lnc qhs - Adonay's - [phone], wear at hs and during day in recliner (naps frequently) Fall precautions-use walker at all time Elevate bilateral LE when sitting in recliner Tubigrip to LE's daily Low Na diet, High protein, low sugar diet Home Interventions Provided: Home Intervention: Other; Eval Consulted PCP/Specialist Reinforced current Plan of Care, including self-management and medication regimen Patient's 'Red Flags': Increased edema Wt gain of 3 lbs in 24 hrs or 5 lbs in one week Increased SOB Patient Needs to Remember: Call [facility] at with any new or worsening health concerns or problems, red flag symptoms. Referrals Needed: Other none Follow Up: Is there cellular connectivity/connectivity in the home? Yes Does the patient have internet in the home? Yes Patient encouraged to call the intake phone number for all urgent but not emergent issues. Is the patient new to [facility] within the last 30 days? No, Assess appropriateness for upcoming telehealth visits. Cancel telehealth visits & schedule home visit with care sub assembly team worker(s)as indicated. Provider is in agreement with Plan of Care: Yes Scheduled to follow up with patient in 24 hrs. Peggy De RN 08/10/2023 9:15 AM documented in this encounter Plan of Treatment Upcoming Encounters Date Type Specialty Care Team Description 08/11/2023 Scheduled Telephone [facility], [facility] [address] [place] [address] 08/17/2023 Laboratory Laboratory Processing [facility] Draw [address] [place] [address] 08/24/2023 Laboratory Laboratory [facility] [address] [place] [address] 08/29/2023 Office Visit Urology Kalpesh Funes MD [address] [id number] 08/31/2023 Laboratory Laboratory Processing [facility] [address] [place] [address] 08/31/2023 Scheduled Telephone [facility] Nurse Triage [address] [place] [address] 09/04/2023 Office Visit Cardiology Leah Aguilera CRNP [address] [place] [address] 09/07/2023 Laboratory Laboratory Processing [facility] Draw [address] [place] [address] 09/07/2023 Home Visit [facility] Peggy De, KARLA [address] [place] [address] 09/14/2023 Laboratory Laboratory Processing [facility] Draw [address] [place] [address] 09/21/2023 Laboratory Laboratory Processing [facility] Draw [address] [place] [address] 09/21/2023 Office Visit Nephrology Nataly Stone PA-C [address] [place] [address] 09/28/2023 Laboratory Laboratory Processing [facility], [facility] Mobile Home Draw [address] [place] [address] 10/05/2023 Laboratory Laboratory Processing [facility], [facility] Mobile Home Draw [address] [place] [address] 10/12/2023 Laboratory Laboratory Processing [facility], [facility] Mobile Home Draw [address] [place] [address] 10/19/2023 Laboratory Laboratory Processing [facility], [facility] Mobile Home Draw [address] [place] [address] 11/03/2023 Nurse Only Ancillary Nurse Jeron[facility]iru [address] [place] [address] Scheduled Procedures Name Priority Associated Diagnoses Date/Ti [...] 023, 03/08/2019, 04/09/2014 CKD PHOS USE SMARTSET 59044 12/27/2023 12/26/2022, 0 06/21/2021 CKD HGB USE SMARTSET 67598 08/03/202408/03, 08/03/2023, 07/27/2023, Additional history exists COLONOSCOPY-EVERY [...] this encounter Medical Devices Implanted Type Area Fiber Optics Engineer Device Identifier Shelf Expiration Date Model / Serial / Lot Lens Intraoc 22.5 - [id number] - [id number] Implanted:Qty: 1 on 05/22/2018 by Jasbir Maurer MD at OR [facility] Right: Eye [employer]OM[employer] 11/22/2022 [id number] / [id number] / [id number] Lens Intraoc 21.0 - [id number] - [id number] Implanted:Qty: 1 on 06/05/2018 by Jasbir Maurer MD at OR [facility] Left: Eye 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
--- OUTSIDE RECORDS SUMMARY | 2023-10-07 03:04 | External Medical Summary ---
Author Name Unknown Address Unknown Organization K01:LABORATORY [facility] - [address] [place] [address] Laboratory Report Ordering Provider Test Date Status AVNI LUIS 07/27/2023 12:52:38 Final Observation Date Value Abnormality Reference (Units ) Status Ferritin 07/27/2023 12:52:38 438 Above high normal 30 -400 (ng/mL) Final Performing Location LABORATORY [facility] - [address] [place] [address]
--- OUTSIDE RECORDS SUMMARY | 2023-10-07 03:04 | External Medical Summary ---
Author Name Unknown Address Unknown Organization K0X:LABORATORY [place] [address] [place] [address] Laboratory Report Ordering Provider Test Date Status AVNI LUIS 08/10/2023 11:57:24 Final Observation Date Value Abnormality Reference (Units ) Status WBC, Total 08/10/2023 11:57:24 4.59 4.00-10.80 (K/uL) Final RBC 08/10/2023 11:57:24 3.33 4.50-5.25 (M/uL) Final Hemoglobin 08/10/2023 11:57:24 11.2 Below low normal 14.0-16.8 (g/dL) Final HCT 08/10/2023 11:57:24 36.2 Below low normal 40.0-48.4 (%) Final MCV 08/10/2023 11:57:24 108.7 82.0-99.5 (fL) Final MCH 08/10/2023 11:57:24 33.6 27.0-34.0 (pg) Final MCHC 08/10/2023 11:57:24 30.9 32.0-36.0 (g/dL) Final RDW 08/10/2023 11:57:24 15.7 11.5-15.5 (%) Final Platelets 08/10/2023 11:57:24 160 140-400 (K/uL) Final MPV 08/10/2023 11:57:24 9.5 6.6-11.1 (fL) Final Nucleated erythrocytes/100 leukocytes [Ratio] in Blood by Automated count 08/10/2023 11:57:24 0 <=0 (/100 WBCs) Final Performing Location LABORATORY [address] [place] [address]
--- OUTSIDE RECORDS SUMMARY | 2023-10-07 03:04 | External Medical Summary | Summary of Care ---
Author Name Unknown Organization [facility] Address [address] [place] [address] Phone [phone] Care Team Providers Care Fitting Room Checker Name Role Phone Michael Hinton MD Primary Care Provider [phone] Reason for Visit * Reason Comments Immunizations Encounter Details Date Type Department Care Team Description 08/02/2023 Immunization Ancillary [facility] [address] [place] [address] [facility] Shot [facility] [address] [place] [address] Need for influenza vaccination* Allergies Active Allergy Reactions Severity Noted Date Comments Fabiano Inhibitors Cough 06/09/2017 Carbidopa W-Levodopa 03/17/2021 Constipation Nsaids Rash 05/17/2018 Contraindicated per it service technician documented as of this encounter (statuses as of 08/02/2023) Medications Medication Sig Dispensed Refills Start Date [...] mitral valve regurgitation,Krista nary artery disease involving platinum coronary artery 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 angina pectoris,Paroxysma l atrial fibrillation [...] as of this encounter (statuses as of 08/02/2023) Active Problems Problem Noted Date Paroxysmal atrial [...] Last Assessment & Plan: Followed closely by [facility] hematology. No identified cause of HUNTER. 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 [place]. Coronary artery disease due to [...] as of this encounter (statuses as of 08/02/2023) Immunizations Name Administration Dates Next Due COVID-19 mRNA, LNP-s, No Pre serve, 2-Dose Series (Caperfly) 11/03/2021,12/19/2020,11/28/2020 Covid-19 Ad26, Single Dose (TabletKiosk/J&J) 12/19/2020,11/28/2020 DTaP Dipth/Tet/Acell Pertussis (Infanrix), Peds 10/24/2019 [...] as of this encounter Progress Notes * CELI Cardona - 08/02/2023 3:59 PM EDT Pre-Administration Time Out Procedure Performed: Yes Patient Identified (Ask Name/Date of ): Yes Does the patient have a fever greater than 101 degrees today? No Patient allergic to latex? No Has the patient ever fainted after receiving an injection? No VFC Stock: No Immunization(s) verified: Yes, Immunization Name: Flu, VIS Sheet(s) given: Yes Verified Side and Site: Yes Verified Shot(s) with Parent(s)/Patient: Yes documented in this encounter Plan of Treatment Upcoming Encounters Date Type Specialty Care Team Description 08/03/2023 Laboratory Laboratory Processing [facility], [facility] Mobile Home Draw [address] [place] [address] 08/08/2023 Laboratory Laboratory Processing [facility], [facility] Mobile Home Draw [address] [place] [address] 08/10/2023 Home Visit [facility] Peggy De RN [address] [facility] [place] [address] 08/17/2023 Laboratory [facility] [address] [place] [address] 08/24/2023 Laboratory Laboratory [facility] Draw [address] [place] [address] 08/29/2023 Office Visit Urology Kalpesh Funes MD 27 [facility] [address] [place] [address] 08/31/2023 Laboratory Laboratory [facility] Draw [address] [place] [address] 08/31/2023 Scheduled Telephone [facility] Nurse Triage [address] [place] [address] 09/04/2023 Office Visit Cardiology Leah Aguilera CRNP [address] [place] [address] 09/07/2023 Laboratory Laboratory Processing [facility], [facility] [address] [place] [address] 09/14/2023 Laboratory Laboratory [facility] Draw [address] [place] [address] 09/21/2023 Laboratory Laboratory [facility] Draw [address] [place] [address] 09/21/2023 Office Visit Nephrology Nataly Stone PA-C [address] [place] [address] 09/28/2023 Laboratory Laboratory Processing [facility], [facility] Mobile Home Draw [address] [place] [address] 10/05/2023 Laboratory Laboratory Processing [facility], [facility] Mobile Home Draw [address] [place] [address] 10/12/2023 Laboratory Laboratory Processing [facility], [facility] Mobile Home Draw [address] [place] [address] 10/19/2023 Laboratory Laboratory Processing [facility], [facility] Mobile Home Draw [address] [place] [address] 11/03/2023 Nurse Only Ancillary Nurse Jeronimo [facility] [address] [place] [address] Scheduled Procedures Name Priority Associated Diagnoses Date/Ti [...] 023, 03/08/2019, 04/09/2014 CKD PHOS USE SMARTSET 18124 12/27/2023 12/26/2022, 0 06/21/2021 CKD HGB USE SMARTSET 69984 07/27/202407/27, 07/27/2023, 07/20/2023, Additional history exists COLONOSCOPY-EVERY 3 YRS AGES [...] this encounter Medical Devices Implanted Type Area Fast Food Delivery Driver Device Identifier Shelf Expiration Date Model / Serial / Lot Lens Intraoc 22.5 - [id number] - [id number] Implanted:Qty: 1 on 05/22/2018 by Jasbir Maurer MD at OR [facility] Right: Eye [employer] 11/22/2022 [id number] / [id number] / [id number] Lens Intraoc 21.0 - [id number] - [id number] Implanted:Qty: 1 on 06/05/2018 by Jasbir Maurer MD at OR [facility] Left: Eye BAUSCH [employer] LOMB 12/20/2022 [id number] / [id number] / documented as of this encounter Visit Diagnoses Diagnosis Need for influenza vaccination- Primary Need for prophylactic vaccination and inoculation against influenza documented in this encounter Advance Directives Latest [...] Care Power of Attor mayela Care Teams Fitting Room Checker Relationship Specialty Start Date End Date Michael Hinton MD [address] [place] [address] PCP - General Family Medicine 08/07/17 documented as of this encounter
--- OUTSIDE RECORDS SUMMARY | 2023-10-07 03:04 | External Medical Summary ---
Author Name Unknown Address Unknown Organization K01:LAB[facility]ATORY [facility] - [address] [facility] [address] Laboratory Report Ordering Provider Test Date Status TOBYAVNI 07/27/2023 12:52:38 Final Observation Date Value Abnormality Reference (Units ) Status SYNC LEUKOCYTES IN BLOOD BY AUTOMATED COUNT 07/27/2023 12:52:38 8.25 4.00-10.80 (K/uL) Final Segs 07/27/2023 12:52:38 78.5 Above high normal 40.0-75.0 (%) Final Lymphs % 07/27/2023 12:52:38 12.1 Below low normal 18.0-42.0 (%) Final Monos 07/27/2023 12:52:38 7.3 1.0-11.0 (%) Final Eosinophils 07/27/2023 12:52:38 0.2 0.0-6.0 (%) Final Basos 07/27/2023 12:52:38 0.2 0.0-2.0 (%) Final Immature Granulocyte, Percent 07/27/2023 12:52:38 1.7 0.0-2.0 (%) Final Absolute Segs 07/27/2023 12:52:38 6.47 1.80-7.70 (K/uL) Final Lymphs, absolute 07/27/2023 12:52:38 1.00 1.00-4.80 (K/ul) Final Monos, Abs 07/27/2023 12:52:38 0.60 0.00-1.10 (K/uL) Final Eos, Abs 07/27/2023 12:52:38 0.02 0.00-0.70 (K/uL) Final Basos, Abs 07/27/2023 12:52:38 0.02 0.00-0.20 (K/uL) Final Immature Granulocytes, Number 07/27/2023 12:52:38 0.14 0.00-0.20 (K/uL) Final Performing Location LAB[facility]ATORY [facility] - [address] [facility] [address]
--- OUTSIDE RECORDS SUMMARY | 2023-10-07 03:04 | External Medical Summary ---
Author Name Unknown Address Unknown Organization K01:LABORATORY [facility] - [address] [place] [address] Laboratory Report Ordering Provider Test Date Status AVNI LUSI 08/03/2023 10:33:00 Final Observation Date Value Abnormality Reference (Units ) Status Ferritin 08/03/2023 10:33:00 292 30-400 (ng /mL) Final Performing Location LABORATORY [facility] - [address] [place] [address]
--- OUTSIDE RECORDS SUMMARY | 2023-10-07 03:05 | External Medical Summary | Summary of Care ---
Author Name Unknown Organization [facility] Address [address] [place] [address] Phone [phone] Care Team Providers Care Alto Singer Name Role Phone Michael Hinton MD Primary Care Provider [phone] Reason for Visit * Reason Onset Date Comments [facility]: Maintenance 07/23/2023 Encounter Details Date Type Department Care Team Description 07/23/2023 Scheduled Telephone [facility], [facility] [address] [place] [address] [facility], Nurse [facility] 132 [place] [address] Allergies Active Allergy Reactions Severity Noted Date Comments Fabiano Inhibitors Cough 06/09/2017 Carbidopa W-Levodopa 03/17/2021 Constipation Nsaids Rash 05/17/2018 Contraindicated per wolf hunter documented as of this encounter (statuses as of 07/23/2023) Medications Medication Sig Dispensed Refills Start Date [...] mitral valve regurgitation,Krista nary artery disease involving [place] coronary artery of [place] heart without angina pectoris,Paroxysma l atrial fibrillation [...] as of this encounter (statuses as of 07/23/2023) Active Problems Problem Noted Date Paroxysmal atrial [...] Last Assessment & Plan: Followed closely by [facility] hematology. No identified cause of [...] both knees Coronary artery disease invo lving [place] coronary artery of [place] heart without angina pectoris 03/21/2018 Last Assessment [...] as of this encounter (statuses as of 07/23/2023) Resolved Problems Problem Noted Date Resolved Date [...] scanned document from 11/13/[address] [facility] [place]. 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 [...] as of this encounter (statuses as of 07/23/2023) Immunizations Name Administration Dates Next Due COVID-19 mRNA, LNP-s, No Pre serve, 2-Dose Series ([employer]) 11/03/2021,12/19/2020,11/28/2020 Covid-19 Ad26, Single Dose ([employer]/J&J) 12/19/2020,11/28/2020 DTaP Dipth/Tet/Acell Pertussis (Infanrix), Peds 10/24/2019 [...] Seasonal Influenza, Quadriva lent Hd (Fluzone Hd) 07/13/2022 Seasonal Influenza, Quadriva lent, No Preserve, IM [...] encounter Miscellaneous Notes * Telephone Encounter - Leah Sheffield RN - 07/23/2023 2:15 PM EDT Call placed to f/u on weights, swelling and blisters to lower extremities. Pt's answered the phone and pt identified by name and . Pt's reports that pt completed3 day DTP yesterday (Torsemide 40 mg daily). Today pt is is doing much better. Swelling to lower extremities is improving and the blister are imprinting as well. denies any open areas to legs. [facility] weights: Pt continues on Keflex daily per ID. Reinforced to call [facility] with any concerns or worsening symptoms. Pt is scheduled for home visit 07/24/23 @ 4 pm. documented in this encounter Plan of Treatment Upcoming Encounters Date Type Specialty Care Team Description 07/24/2023 Home Visit [facility] Peggy De RN 132 [facility] [place] [address] 07/27/2023 Laboratory Laboratory Processing [facility] [facility] Mobile Home Draw [address], [place] [id number] 08/02/2023 Immunization Ancillary Niru, Flu Shot Clinic Fam Prac [address] [place] [address] 08/03/2023 Laboratory Laboratory Processing [facility] Draw [address] [place] [address] 08/10/2023 Laboratory Laboratory Processing [facility] Draw [address] [place] [address] 08/17/2023 Laboratory Laboratory Processing [facility] Draw [address] [place] [address] 08/24/2023 Laboratory Laboratory Processing [facility] Mobile [facility] Draw [address] [place] [address] 08/29/2023 Office Visit Urology Kalpesh Funes MD [address] [address] 08/31/2023 Laboratory Laboratory Processing [facility] Mobile [facility] Draw [address] [place] [address] 08/31/2023 Scheduled Telephone [facility] Nurse Triage [address] [place] [address] 09/04/2023 Office Visit Cardiology Leah Aguilera CRNP [address] [place] [address] 09/07/2023 Laboratory Laboratory Processing [facility] Mobile Home Draw [address] [place] [address] 09/14/2023 Laboratory Laboratory Processing [facility] Mobile [facility] Draw [address] [place] [address] 09/21/2023 Laboratory Laboratory Processing [facility] Mobile Home Draw [address] [place] [address] 09/21/2023 Office Visit Nephrology Chase, Nataly Christine PA-C [address] [place] [address] 09/28/2023 Laboratory Laboratory Processing [facility] Draw [address] [place] [address] 10/05/2023 Laboratory Laboratory Processing [facility] Mobile Home Draw [address] [place] [address] 10/12/2023 Laboratory Laboratory Processing [facility] Mobile Home Draw [address] [place] [address] 10/19/2023 Laboratory Laboratory Processing [facility] Mobile Home Draw [address] [place] [address] 11/03/2023 Nurse Only Ancillary Nurse Jeronimo [facility] [address] [place] [address] Scheduled Procedures Name Priority Associated Diagnoses Date/Ti me COLONOSCOPY FLEXIBLE PROXIMAL DIAGNOSTIC Recall History of colon polyps Health Maintenance Due Date Last Done Comments Hepatitis C Screening 1963 Diabetic Foot Exam 03/27/2021 03/27/2020, 08/23/2018 COVID-19 Vaccine (5 - Pfizer series) 12/29/2021 11/03/2021, 12/19/2020, 12/19/2020, Additional history exists Influenza Vaccine (FLU shot) (#1) 2023 07/13/2022, 07/23/2021, 07/07/2020, Additional history exists HbA1c 10/12/2023 04/12/2023, 0303/2023, 03/22/2022, Additional history exists DIABETES-EYE EXAM 11/01/2023 11/01/2022, , 08/04/2011, Additional history exists Depression Screening 11/02/2023 11/02/2022 GFR 11/04/2023 05/04/2023, 03/23, 03/16/2023, Additional history exists Albumin/Creatinine Ratio 12/27/2023 023, 03/08/2019, 04/09/2014 CKD PHOS USE SMARTSET 19036 12/27/2023 12/26/2022, 0 06/21/2021 CKD HGB USE SMARTSET 70937 07/20/202407/20, 07/20/2023, 07/13/2023, Additional history exists COLONOSCOPY-EVERY 3 YRS AGES 18-100 09/12/2025 09/12/2022, 07/10/2020, 03/24/2015, Additional history exists DTaP,Tdap,and Td Vaccines (4 - Td or Tdap) 10/24/2029 10/24/2019, 10/24/2019, 11/03/2008, Additional history exists Pneumococcal Vaccine: 65+ Years Completed 04/27/2016, 08/27/2009 Zoster Vaccines Completed 10/24/2019, 11/2019, 07/31/2019, Additional history exists GARDASIL-HPV IMMUNIZATION SERIES Aged Out No longer eligible based on patient's age to complete this topic Hepatitis B Aged Out No longer eligi ble based on patient's age to complete this topic MENINGOCOCCAL (MENACTRA/MENVEO) Aged Out No longer eligible based on patient's age to complete this topic documented as of this encounter Medical Devices Implanted Type Area Account Clerk Device Identifier Shelf Expiration Date Model / Serial / Lot Lens Intraoc 22.5 - [id number] - [id number] Implanted:Qty: 1 on 05/22/2018 by Jasbir Maurer MD at OR [facility] Right: Eye [employer] 11/22/2022 [id number] / [id number] / [id number] Lens Intraoc 21.0 - [id number] - [id number] Implanted:Qty: 1 on 06/05/2018 by Jasbir Maurer MD at OR [facility] Left: Eye [employer] 12/20/2022 [id number] / [id number] / documented as of this encounter Advance [...] Care Power of Attor mayela Care Teams Alto Singer Relationship Specialty Start Date End Date Michael Hinton MD [address] [place] [address] PCP - General Family Medicine 08/07/17 documented as of this encounter
--- OUTSIDE RECORDS SUMMARY | 2023-10-07 03:05 | External Medical Summary | Summary of Care ---
Author Name Unknown Organization [facility] Address [address] [place] [address] Phone [phone] Care Team Providers Care Outside Solar Sales Consultant Name Role Phone Michael Hinton MD Primary Care Provider [phone] Reason for Visit * Reason Onset Date Comments [facility]: Maintenance 07/22/2023 Encounter Details Date Type Department Care Team Description 07/22/2023 Scheduled Telephone [facility], [facility] 132 [facility] [place] [address] [facility], Nurse [facility] [address] [facility] [address] Allergies Active Allergy Reactions Severity Noted Date Comments Fabiano Inhibitors Cough 06/09/2017 Carbidopa W-Levodopa 03/17/2021 Constipation Nsaids Rash 05/17/2018 Contraindicated per lawn and garden technician documented as of this encounter (statuses as of 07/22/2023) Medications Medication Sig Dispensed Refills Start Date [...] mitral valve regurgitation,Krista nary artery disease involving [place] coronary artery of [place] heart without angina pectoris,Paroxysma l atrial fibrillation [...] as of this encounter (statuses as of 07/22/2023) Active Problems Problem Noted Date Paroxysmal atrial [...] Last Assessment & Plan: Followed closely by [facility] hematology. No identified cause of HUNTER. Weekly [...] both knees Coronary artery disease invo lving [place] coronary artery of [place] heart without angina pectoris 03/21/2018 Last Assessment [...] as of this encounter (statuses as of 07/22/2023) Resolved Problems Problem Noted Date Resolved Date [...] scanned document from 11/13/[address] [facility]ains [facility] [place]. 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 [facility] Telephonic Nurse Follow-Up Call [facility] Subprogram: Primary Care at Home Follow Up Call Type: Routine follow up call / Status Check Acute issue requiring follow-up call: Other: edema to ble's with blisters Objective: 07/19/2023 8:55 PM 07/06/2023 11:23 AM 05/23/2023 10:07 AM 05/02/2023 11:47 AM 04/17/2023 3:30 PM VITALS ACROSS ENCOUNTERS BP 140/68 122/60 120/64 132/46 122/62 Pulse 68 60 60 Weight 74.4 kg BMI 27.29 kg/m2 Lab Results Component Value Date WBC AUTO - [facility] 7.21 07/20/2023 Lab Results Component Value Date WBC AUTO - [facility] 7.21 07/20/2023 HGB - [facility] 11.3 (L) 07/20/2023 PLATELET AUTO - [facility] 159 07/20/2023 Lab Results Component Value Date SODIUM - [facility] 143 05/04/2023 POTASSIUM - [facility] 4.5 05/04/2023 CO2 - [facility] 23 05/04/2023 CREATININE - [facility] 1.9 (H) 05/04/2023 ESTIMATED GLOMERULAR FILTRATION RATE - [facility] 36 (L) 05/04/2023 No results found for: PRO BNP, LEFT VENTRICULAR EJECTION FRACTION Remote Patient Monitoring: [facility] Scale: 164.8 lbs Oxygen Needs: NO CHANGE from baseline supplemental oxygen needs DME Needs: NO DME needs identified Medications: Current DTP: Double dose of Torsemide for 3 days Subjective: Condition Status: [facility] Current Concerns: Call to patient to follow up on swelling/blisters to ble's, no answer, left message requesting callback. Disposition: Follow up call scheduled for tomorrow with ENGINE LATHE TENDER Senior Living Advisor Future Visits Scheduled: Future Appointments-next 60 days Date/Time Provider Specialty Dept Phone 07/23/2023 11:30 AM [facility] [phone] 07/24/2023 4:00 PM Peggy De RN [facility] [phone] 07/27/2023 8:00 AM [facility] Laboratory Processing [phone] 08/02/2023 11:20 AM Flu Shot Clinic Fam [facility] Niru Ancillary [phone] 08/03/2023 8:00 AM [facility] Mobile [facility] Draw [facility] Laboratory Processing [phone] 08/10/2023 8:00 AM [facility] Mobile [facility] Draw [facility] Laboratory Processing [phone] 08/17/2023 8:00 AM [facility] Mobile [facility] Draw [facility] Laboratory Processing [phone] 08/24/2023 8:00 AM [facility] Mobile [facility] Draw [facility] Laboratory Processing [phone] 08/29/2023 3:15 PM Kalpesh Funes MD Urology [phone] 08/31/2023 8:00 AM [facility] Mobile Home Draw [facility] Laboratory Processing [phone] 08/31/2023 11:00 AM [facility] Nurse [facility] [phone] 09/04/2023 11:00 AM (Arrive by 10:45 AM) HALLIE Marshall Cardiology [phone] 09/07/2023 8:00 AM [facility] Mobile [facility] Draw [facility] Laboratory Processing [phone] 09/14/2023 8:00 AM [facility] Mobile Home Draw [facility] Laboratory Processing [phone] 09/21/2023 8:00 AM [facility] Mobile [facility] Draw [facility] Laboratory Processing [phone] 09/21/2023 1:30 PM (Arrive by 1:15 PM) Nataly Stone PA-C Nephrology [phone] 09/28/2023 8:00 AM [facility] Mobile Home Draw [facility] Laboratory Processing [phone] 10/05/2023 8:00 AM [facility] Mobile [facility] Draw [facility] Laboratory Processing [phone] 10/12/2023 8:00 AM [facility] Mobile [facility] Draw [facility] Laboratory Processing [phone] 10/19/2023 8:00 AM [facility] Mobile [facility] Draw [facility] Laboratory Processing [phone] 11/03/2023 2:00 PM Nurse Annual Wellness N[facility] Ancillary [phone] Esperanza Plummer RN documented in this encounter Plan of Treatment Upcoming Encounters Date Type Specialty Care Team Description 07/23/2023 Scheduled Telephone [facility], [facility]nehal [facility]les [facility] [address] 07/24/2023 [facility] Visit [facility] De [facility] [address] 07/27/2023 Laboratory Laboratory Processing [facility] Mobile Home Draw [address] [place] [address] 08/02/2023 Immunization Ancillary Niru, Flu Shot Clinic Fam Prac 132 [facility] [place] [address] 08/03/2023 Laboratory Laboratory Processing [facility] Mobile Home Draw [address] [place] [address] 08/10/2023 Laboratory Laboratory Processing [facility] Mobile Home Draw [address] [place] [address] 08/17/2023 Laboratory Laboratory Processing [facility] Mobile Home Draw [address] [place] [address] 08/24/2023 Laboratory Laboratory Processing [facility] Mobile Home Draw [address] [place] [address] 08/29/2023 Office Visit Urology Kalpesh Funes MD [address] [address] 08/31/2023 Laboratory Laboratory Processing [facility], [facility] Mobile Home Draw [address] [place] [address] 08/31/2023 Scheduled Telephone [facility] Nurse Triage [address] [place] [address] 09/04/2023 Office Visit Cardiology Leah Aguilera CRNP [address] [place] [address] 09/07/2023 Laboratory Laboratory Processing [facility] Mobile Home Draw [address] [place] [address] 09/14/2023 Laboratory Laboratory Processing [facility] Mobile Home Draw [address] [place] [address] 09/21/2023 Laboratory Laboratory Processing [facility] Mobile Home Draw [address] [place] [address] 09/21/2023 Office Visit Nephrology Zemaitis, Nataly Nanci, PA-C [address] [place] [address] 09/28/2023 Laboratory Laboratory Processing [facility], [facility] Mobile Home Draw [address] [place] [address] 10/05/2023 Laboratory Laboratory Processing [facility], [facility] Mobile Home Draw [address] [place] [address] 10/12/2023 Laboratory Laboratory Processing [facility], [facility] Mobile Home Draw [address] [place] [address] 10/19/2023 Laboratory Laboratory Processing [facility], [facility] Mobile Home Draw [address] [place] [address] 11/03/2023 Nurse Only Ancillary Nurse Jeronimo [facility] [address] [place] [address] Scheduled Procedures Name Priority Associated Diagnoses Date/Ti me COLONOSCOPY FLEXIBLE PROXIMAL DIAGNOSTIC Recall History of colon polyps Health Maintenance Due Date Last Done Comments Hepatitis C Screening 1963 Diabetic Foot Exam 03/27/2021 03/27/2020, 08/23/2018 COVID-19 Vaccine (5 - Pfizer series) 12/29/2021 11/03/2021, 12/19/2020, 12/19/2020, Additional history exists Influenza Vaccine (FLU shot) (#1) 2023 07/13/2022, 07/23/2021, 07/07/2020, Additional history exists HbA1c 10/12/2023 04/12/2023, 03/0 03/2023, 03/22/2022, Additional history exists DIABETES-EYE EXAM 11/01/2023 11/01/2022, , 08/04/2011, Additional history exists Depression Screening 11/02/2023 11/02/2022 GFR 11/04/2023 05/04/2023, 03/23, 03/16/2023, Additional history exists Albumin/Creatinine Ratio 12/27/2023 023, 03/08/2019, 04/09/2014 CKD PHOS USE SMARTSET 19633 12/27/2023 12/26/2022, 0 06/21/2021 CKD HGB USE SMARTSET 66743 07/20/202407/20, 07/20/2023, 07/13/2023, Additional history exists COLONOSCOPY-EVERY [...] this encounter Medical Devices Implanted Type Area Photo Graphics Librarian Device Identifier Shelf Expiration Date Model / Serial / Lot Lens Intraoc 22.5 - [id number] - [id number] Implanted:Qty: 1 on 05/22/2018 by Jasbir Maurer MD at OR [facility] Right: Eye [employer] 11/22/2022 [id number] / [id number] / [id number] Lens Intraoc 21.0 - [id number] - [id number] Implanted:Qty: 1 on 06/05/2018 by Jasbir Maurer MD at OR [facility] Left: Eye [employer] 12/20/2022 [id number] / [id number] / documented as of this encounter Advance [...] Agents on File Name Relationship Healthcare Agent Relationsid p Communication Ashley Meek Jose Spouse Health Care Power of Attor mayela Care Teams Outside Solar Sales Consultant Relationship Specialty Start Date End Date Michael Hinton MD [address] [place] [address] PCP - General Family Medicine 08/07/17 documented as of this encounter
--- OUTSIDE RECORDS SUMMARY | 2023-10-07 03:05 | External Medical Summary | Summary of Care ---
Author Name Unknown Organization [facility] Address [address] [place] [address] Phone [phone] Care Team Providers Care Satellite Dish Repairer Name Role Phone Michael Hinton MD Primary Care Provider [phone] Reason for Visit * Reason Onset Date Comments [facility]: Maintenance 07/21/2023 Encounter Details Date Type Department Care Team Description 07/21/2023 Scheduled Telephone [facility], [facility] [address] [facility] [place] [address] [facility] Nurse Triage [address] [facility] [place] [address] Allergies Active Allergy Reactions Severity Noted Date Comments Fabiano Inhibitors Cough 06/09/2017 Carbidopa W-Levodopa 03/17/2021 Constipation Nsaids Rash 05/17/2018 Contraindicated per instrument mechanic documented as of this encounter (statuses as of 07/21/2023) Medications Medication Sig Dispensed Refills Start Date [...] mitral valve regurgitation,Krista nary artery disease involving [place] coronary artery of [place] heart without angina pectoris,Paroxysma l atrial fibrillation [...] as of this encounter (statuses as of 07/21/2023) Active Problems Problem Noted Date Paroxysmal atrial [...] & Plan: Followed closely by [facility] hematology. No identified cause of HUNTER. Weekly [...] both knees Coronary artery disease invo lving [place] coronary artery of [place] heart without angina pectoris 03/21/2018 Last Assessment [...] as of this encounter (statuses as of 07/21/2023) Resolved Problems Problem Noted Date Resolved Date [...] scanned document from 11/13/[address] [facility] [place] 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 [facility] Forklift Wheel Loader Monthly Visit Date: 07/21/2023 Time: 10:58 AM Name: Jesus Jose : 1945 Monthly follow up call to Jesus, return call from Ashley, agreed to speak with me, aware that marlen being recorded for training purposes. Problems/Symptoms: HPI: Ashley reports this is day #2 of DTP started yesterday by Berny Power, patient increased Torsemide to 40mg daily for just 3 days, remains on Keflex daily per ID doctor. Keeping both legs elevated at all times, wears tubi admitting office escort, denies any fever/chills, reports being always cold, weight this morning was 164.0 lbs, has AMC scale, edema to BLE's are resolving, blisters still persist, denies any redness or pain to both legs. Constitutional: no weight loss, no weakness, and no fatigue Resp: no cough, no sputum, no wheezing, and no SOB Cardiac: no chest pain, no orthopnea, no dyspnea on exertion, no palpitations, + PND, and + moderate edema to BLE's GI: no pain, no heartburn, no diarrhea, no constipation, no blood/melena, no nausea, no vomiting Musculoskeletal: no significant joint or muscle pain and no swelling Neuro: no weakness, no falling, no vertigo, + memory loss due to dementia, and + numbness/tingling Medication Reconciliation: Does patient take medications as ordered: Yes, spouse sets up and administers all medications No refills needed at this time Follow up scheduled Esperanza Plummer RN 07/21/2023 documented in this encounter Plan of Treatment Upcoming Encounters Date Type Specialty Care Team Description 07/24/2023 Home Visit [facility] Peggy De RN [address] [place] [address] 07/27/2023 Laboratory Laboratory Processing [facility] [place] Mobile Home Draw [address] [place] [address] 08/02/2023 Immunization Ancillary N[facility], Flu Shot [facility] Fam Prac [address] [place] [address] 08/03/2023 Laboratory Laboratory Processing [facility] [place] Mobile Home Draw [address] [place] [address] 08/10/2023 Laboratory Laboratory Processing [facility] Home Draw [address] [place] [address] 08/17/2023 Laboratory Laboratory Processing [facility] Mobile Home Draw [address] [place] [address] 08/24/2023 Laboratory Laboratory Processing [facility] Mobile Home Draw [address] [place] [address] 08/29/2023 Office Visit Urology Kalpesh Funes MD [address] [place] [address] 08/31/2023 Laboratory Laboratory [facility] Mobile Home Draw [address] [place] [address] 08/31/2023 Scheduled Telephone [facility] Nurse Triage [address] [place] [address] 09/04/2023 Office Visit Cardiology Leah Aguilera CRNP [address] [place] [address] 09/07/2023 Laboratory Laboratory Processing [facility] Draw [address] [place] [address] 09/14/2023 Laboratory Laboratory Processing [facility] Draw [address] [place] [address] 09/21/2023 Laboratory Laboratory Processing [facility] Draw [address] [place] [address] 09/21/2023 Office Visit Nephrology Nataly Stone PA-C [address] [place] [address] 09/28/2023 Laboratory Laboratory Processing [facility] Mobile [facility] Draw [address] [place] [address] 10/05/2023 Laboratory Laboratory Processing [facility] Home Draw [address] [place] [address] 10/12/2023 Laboratory Laboratory Processing [facility] Draw [address] [place] [address] 10/19/2023 Laboratory Laboratory Processing [facility], [facility] Mobile Home Draw [address] [place] [address] 11/03/2023 Nurse Only Ancillary Nurse [facility]iru [address] [place] [address] Scheduled Procedures Name Priority Associated [...] 023, 03/08/2019, 04/09/2014 CKD PHOS USE SMARTSET 85277 12/27/2023 12/26/2022, 0 06/21/2021 CKD HGB USE SMARTSET 16718 07/20/202407/20, 07/20/2023, 07/13/2023, Additional history exists COLONOSCOPY-EVERY [...] this encounter Medical Devices Implanted Type Area Investor Relations Associate Device Identifier Shelf Expiration Date Model / Serial / Lot Lens Intraoc 22.5 - [id number] - [id number] Implanted:Qty: 1 on 05/22/2018 by Jasbir Maurer MD at OR [facility] Right: Eye [employer] 11/22/2022 [id number] / [id number] / [id number] Lens Intraoc 21.0 - [id number] - [id number] Implanted:Qty: 1 on 06/05/2018 by Jasbir Maurer MD at OR [facility] Left: Eye [employer] LOMB 12/20/2022 [id number] / [id number] / documented as of this encounter Advance [...] Care Power of Attor mayela Care Teams Satellite Dish Repairer Relationship Specialty Start Date End Date Michael Hinton MD [address] [place] [address] PCP - General Family Medicine 08/07/17 documented as of this encounter
--- OUTSIDE RECORDS SUMMARY | 2023-10-07 03:05 | External Medical Summary | Summary of Care ---
Author Name Unknown Organization [facility] Address [address] [place] [address] Phone [phone] Care Team Providers Care Optical Laboratory Manager Name Role Phone Michael Hinton MD Primary Care Provider [phone] Reason for Visit * Reason Onset Date Comments [facility]: Maintenance 07/21/2023 Encounter Details Date Type Department Care Team Description 07/21/2023 Scheduled Telephone [facility], [facility] [address] [facility] [place] [address] [facility] Nurse Triage [address] [place] [address] Allergies Active Allergy Reactions Severity Noted Date Comments Fabiano Inhibitors Cough 06/09/2017 Carbidopa W-Levodopa 03/17/2021 Constipation Nsaids Rash 05/17/2018 Contraindicated per manager front office documented as of this encounter (statuses as [...] mitral valve regurgitation,Krista nary artery disease involving [place] coronary artery of [place] heart without angina pectoris,Paroxysma l atrial fibrillation [...] Last Assessment & Plan: Followed closely by [facility] hematology. No identified cause of [...] both knees Coronary artery disease invo lving [place] coronary artery of [place] heart without angina pectoris 03/21/2018 Last [...] scanned document from 11/13/[address] [facility] [place]. 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, denies any fever/chills, reports being always cold, [...] [facility] Peggy De RN [address] [place] [address] 07/27/2023 Laboratory Laboratory Processing [facility] Mobile Home Draw [address] [place] [address] 08/02/2023 Immunization Ancillary Niru, Flu Shot Clinic Fam Prac [address] [place] [address] 08/03/2023 Laboratory Laboratory Processing [facility], [facility] Mobile Home Draw [address] [place] [address] 08/10/2023 Laboratory Laboratory Processing [facility], [facility] Mobile Home Draw [address] [place] [address] 08/17/2023 Laboratory Laboratory Processing [facility], [facility] Mobile Home Draw [address] [place] [address] 08/24/2023 Laboratory Laboratory Processing [facility], [facility] Mobile Home Draw [address] [place] [address] 08/29/2023 Office Visit Urology Kalpesh Funes MD [address] [place] [address] 08/31/2023 Laboratory Laboratory Processing [facility] Draw [address] [place] [address] 08/31/2023 Scheduled Telephone [facility] Nurse Triage [address] [place] [address] 09/04/2023 Office Visit Cardiology Leah Aguilera CRNP [address] [place] [address] 09/07/2023 Laboratory Laboratory Processing [facility] Draw [address] [place] [address] 09/14/2023 Laboratory Laboratory Processing [facility] Draw [address] [place] [address] 09/21/2023 Laboratory Laboratory Processing [facility] Draw [address] [place] [address] 09/21/2023 Office Visit Nephrology Nataly Stone PA-C [address] [place] [address] 09/28/2023 Laboratory Laboratory Processing [facility] Draw [address] [place] [address] 10/05/2023 Laboratory Laboratory Processing [facility] Draw [address] [place] [address] 10/12/2023 Laboratory Laboratory Processing [facility] Draw [address] [place] [address] 10/19/2023 Laboratory Laboratory Processing [facility], [facility] Mobile Home Draw [address] [place] [address] 11/03/2023 Nurse Only Ancillary Nurse [facility]u [address] [place] [address] Scheduled Procedures Name Priority Associated [...] 023, 03/08/2019, 04/09/2014 CKD PHOS USE SMARTSET 13843 12/27/2023 12/26/2022, 0 06/21/2021 CKD HGB USE SMARTSET 99829 07/20/202407/20, 07/20/2023, 07/13/2023, Additional history exists COLONOSCOPY-EVERY [...] this encounter Medical Devices Implanted Type Area Crusher Machine Operator Device Identifier Shelf Expiration Date Model / Serial / Lot Lens Intraoc 22.5 - [id number] - [id number] Implanted:Qty: 1 on 05/22/2018 by Jasbir Maurer MD at OR [facility] Right: Eye [employer] 11/22/2022 [id number] / [id number] / [id number] Lens Intraoc 21.0 - [id number] - [id number] Implanted:Qty: 1 on 06/05/2018 by Jasbir Maurer MD at OR [facility] Left: Eye [employer]OM[employer] 12/20/2022 [id number] / [id number] / documented as of this encounter Advance [...] Care Power of Attor mayela Care Teams Optical Laboratory Manager Relationship Specialty Start Date End Date iMchael Hinton MD [address] [place] [address] PCP - General Family Medicine 08/07/17 documented as of this encounter
--- OUTSIDE RECORDS SUMMARY | 2023-10-07 03:06 | External Medical Summary ---
Author Name Unknown Address Unknown Organization [id number]:[facility] [address] [place] [address] Laboratory Report Ordering Provider Test Date Status AVNI LUIS 07/06/2023 09:30:00 Final Observation Date Value Abnormality Reference (Units ) Status WBC, Total 07/06/2023 09:30:00 4.42 4.00-10.8 0 (K/uL) Final RBC 07/06/2023 09:30:00 3.22 4.50-5.25 (M/uL) Final Hemoglobin 07/06/2023 09:30:00 10.7 Below low normal 14 .0-16.8 (g/dL) Final HCT 07/06/2023 09:30:00 32.6 Below low normal 40. 0-48.4 (%) Final MCV 07/06/2023 09:30:00 101.2 82.0-99.5 (fL) Final MCH 07/06/2023 09:30:00 33.2 27.0-34.0 (pg) Final MCHC 07/06/2023 09:30:00 32.8 32.0-36.0 (g/dL) Final RDW 07/06/2023 09:30:00 16.7 11.5-15.5 (%) Final Platelets 07/06/2023 09:30:00 145 140-400 (K /uL) Final MPV 07/06/2023 09:30:00 9.0 6.6-11.1 ( fL) Final Performing Location [facility] [address] [place] [address]
--- OUTSIDE RECORDS SUMMARY | 2023-10-07 03:06 | External Medical Summary | Summary of Care ---
Author Name Unknown Organization [facility] Address [address] [place] [address] Phone [phone] Care Team Providers Care Bear Keeper Name Role Phone Michael Hinton MD Primary Care Provider [phone] Encounter Details Date Type Department Care Team Description 07/18/2023 Home Visit [facility] [address] [facility] [address] Berny Power PA-C [address] [facility] [address] Bilateral leg edema*; Blister of right lower extremity without infection, initial encounter; Hypertensive heart 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 stage 3b chronic kidney disease ([facility]); Primary parkinsonism ([facility]); 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[facility]); Paroxysmal atrial fibrillation ([facility]); Advanced care planning/counseling discussion Allergies Active Allergy Reactions Severity Noted Date Comments Fabiano Inhibitors Cough 06/09/2017 Carbidopa W-Levodopa 03/17/2021 Constipation Nsaids Rash 05/17/2018 Contraindicated per pricing strategist documented as of this encounter (statuses as of 07/20/2023) Medications Medication Sig Dispensed Refills Start Date End Date Status Glucose Blood (ONETOUCH VERIO) STRPIndications:Ty pe 2 diabetes mellitus with hemoglobin A1c goal of less than 8.0% (HCC) Use up to 4 times a day E11.9 400 Strip 3 08/29/2018 Active ONETOUCH DELICA LANCETS 33G MISCIndications:Ty pe 2 diabetes mellitus with hemoglobin A1c goal of less than 8.0% ([facility]) Use up to 4 times [...] valve regurgitation,Krista nary artery disease involving [place] coronary artery of [place] heart without angina pectoris,Paroxysma l atrial fibrillation [...] as of this encounter (statuses as of 07/20/2023) Active Problems Problem Noted Date Paroxysmal atrial [...] Last Assessment & Plan: Followed closely by [facility] hematology. No identified cause of [...] both knees Coronary artery disease invo lving [place] coronary artery of [place] heart without angina pectoris 03/21/2018 Last Assessment [...] as of this encounter (statuses as of 07/20/2023) Resolved Problems Problem Noted Date Resolved Date [...] scanned document from 11/13/[address] bains, [facility]. 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 [...] as of this encounter (statuses as of 07/20/2023) Immunizations Name Administration Dates Next Due COVID-19 mRNA, LNP-s, No Pre serve, 2-Dose Series (Punch!) 11/03/2021,12/19/2020,11/28/2020 Covid-19 Ad26, Single Dose (DeNA/J&J) 12/19/2020,11/28/2020 DTaP Dipth/Tet/Acell Pertussis (Infanrix), Peds 10/24/2019 Pneumococcal Conjugate Vacc, 13 Valent (Prevnar) 04/27/2016 Pneumococcal Polysaccharide PPV23 (Pneumovax) 08/27/2009 Season Influenza, Quad, PF, Adjuvanted, 65+ Yrs, IM (FLUAD) 07/07/2020 Seasonal Influenza Virus Vac cine, Unspecified Formulation 07/07/2020,07/31/2019,07/04/2018,01/2017,08/23/2016,07/25/2016,07/03/20 15,07/14/2014,07/06/2013,07/13/2012,0 07/15/2011,07/27/2010,07/02/2009,09/03,08/28/2007,08/28/2006, 5 Seasonal Influenza, PF, 6 mo ns & Above, IM , (Flulaval) 07/31/2019,07/04/2018,07/26/2017 Seasonal Influenza, QUAD, wi th Preserv, 6 [...] Sign Reading Time Taken Comments Blood Pressure 140/68 07/19/2023 8:55 PM EDT Pulse - - Temperature - - Respiratory Rate - - Oxygen Saturation 95% 07/19/2023 8:55 PM EDT Inhaled Oxygen Concentration - - Weight 74.4 kg (164 lb) 07/19/2023 8:55 PM EDT Height - - Body Mass Index 27.29 12/01/2022 10:58 AM EST documented in this encounter Progress Notes * Berny Power PA-C - 07/18/2023 1:11 PM EDT [facility] Progress Note Date: 07/18/2023 Time: 1:00 Name: Jesus Jose : 1945 Purpose of Visit: follow up Location: Home Individual(s) present: Patient, Spouse, and Daughter(s) Coordination of Care: Cardiology, Nephrology, Primary Care, and Neurology ASSESSMENT/PLAN: (R60.0) Bilateral leg edema (primary encounter diagnosis) (S80.821A) Blister of right lower extremity without infection, initial encounter Plan: increase torsemide to 40mg daily x 3 days Keep legs elevated Continue tubigrips Monitor for s/s of cellulitis Continues on daily keflex (I13.0, I50.32, N18.32) Hypertensive 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) Plan: torsemide DTP Monitor weights daily (G20) Primary parkinsonism (HCC) (G20, F02.80) 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HCC) Plan: continue aricept, amantadine Follows with neurology Dr Elzbieta Zhang, telemed from [place] (I48.0) Paroxysmal atrial fibrillation (HCC) Plan: rate controlled Advance care planning/Goals of Care: See documentation in Advance Care Planning module and ACP note. SUBJECTIVE: Family present: yes, reviewed Patient is 78 year old male with Parkinsons disease with dementia. Other comorbidities include afib, CHF, CKd stage 3, CAD s/p CABG, dyslipidemia, type 2 DM, and anemia. Lives with and daughter. manages medications. Follows with neurology Dr Shannon Bowman in [facility]. Patient weighs himself daily. Reports weight fairly stable recently. On torsemide 20mg daily. Also reports h/o recurrent cellulitis and continues on keflex once daily. Despite stable weight, has noticed increased leg swelling past few days and now with fluid blisters. Have been using tubi senior landscape architect stockings. Denies fever/chills. Pain: denies Nausea: no Vomiting: no Confusion: mild Somnolence: no Constipation: no Dyspnea: some with exertion Anxious: no Support: , daughter Med Management: HISTORY: Social History Tobacco Use Smoking status: Never Smokeless tobacco: Never Substance Use Topics Alcohol use: No 78 year old year-old male with the following active problems: Patient Active Problem List Diagnosis Code Dyslipidemia E78.5 FABIANO inhibitor intolerance Z78.9 Cervical spinal stenosis M48.02 FABIANO (generalized anxiety disorder) F41.1 Primary parkinsonism (HCC) G20 S/P CABG x 3 Z95.1 Primary osteoarthritis of both knees M17.0 Coronary artery disease involving [place] coronary artery of [place] heart without angina pectoris I25.10 HTN, goal below 130/80 I10 Type 2 diabetes mellitus with hemoglobin A1c goal of less than 8.0% ([facility]) 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, N13.8 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[facility]) G20, F02.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 Type 2 diabetes mellitus with diabetic peripheral angiopathy without gangrene ([facility]) E11.51 Gastro-esophageal reflux disease without esophagitis K21.9 Iron deficiency anemia D50.9 Hypertensive heart 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 stage 3b chronic kidney disease ([facility]) I13.0, I50.32, N18.32 Overweight (BMI 25.0-29.9) E66.3 Chronic diastolic 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 ([facility]) I50.32, I25.10 Urge incontinence N39.41 Hematuria, gross R31.0 Atrial fibrillation ([facility]) I48.91 Flexural atopic dermatitis L20.89 Chronic kidney disease, stage 3b ([facility]) N18.32 Type 2 diabetes mellitus with stage 3b chronic kidney disease ([facility]) E11.22, N18.32 Immunodeficiency ([facility]) D84.9 History of cellulitis Z87.2 Paroxysmal atrial fibrillation ([facility]) I48.0 Current Outpatient Medications Medication Sig Dispense Refill [...] BY MOUTH EVERY MORNING 90 Capsule 3 Betamethasone Dipropionate 0.05 % External Ointment APPLY TO SKIN LESIONS AND SCALP LESIONS UP TO TWO TIMES A DAY FOR NO LONGER THAN 2 WEEKS AT A TIME FOR ITCH. (THEN TAKE A 2 WEEK BREAK) 45 g 2 Torsemide 20 MG Oral Tablet (Demadex) Take 1 Tablet by mouth in the morning. 180 Tablet 3 DIURETIC TITRATION PLAN If no improvement on day 3, contact heart failure managing provider. 1 Each0 metFORMIN HCl ER 500 MG Oral Tablet Extended Release 24 Hour (Glucophage XR) Take 1 Tablet by mouthdaily. 100 Tablet 3 predniSONE 20 MG Oral Tablet (Deltasone) Take 3 tabs for 3 days, 2 tabs for 3 days, 1 tab for 3 days, 1/2 tab for 3 days 20 Tablet 0 Dexamethasone 0.5 MG/5ML Oral Elixir (Decadron) Take 5 mL by mouth in the morning and 5 mL at noon and 5 mL in the evening and 5 mL before bedtime. 237 mL 1 Chlorhexidine Gluconate 0.12 % Mouth/Throat Solution (Periogard) Swish and spit 15 mL in the morning and 15 mL before bedtime. 473 mL 0 No current facility-administered medications for this visit. Physical Exam: BP Readings from Last 3 Encounters: 07/19/23 140/68 07/06/23 122/60 05/23/23 120/64 { Wt Readings from Last 3 Encounters: 07/19/23 74.4 kg (164 lb) 04/12/23 81.2 kg (179 lb) 03/22/23 83.1 kg (183 lb 3.2 oz) Vital signs: Blood pressure 140/68, weight 74.4 kg (164 lb), SpO2 95 %. General: alert and no distress Neuro: alert & oriented x 3 with fluent speech Heart: regular rate & rhythm, +murmur Lungs: no chest wall tenderness, lungs clear to auscultation, no wheeze, no rales, no rhonchi Abdomen: abdomen soft, non-tender, normal bowel sounds, and no rebound or guarding Ext: +2-3 edema RLE, +2 edema LLE, chronic stasis changes, fluid filled blisters to bilat LE some with serous drainage Recent Results: Component Latest Ref Rng 07/06/2023 07/13/2023 WBC 4.00 - 10.80 K/uL 4.42 7.29 Neutrophils % 40.0 - 75.0 % 64.9 75.0 Lymphocytes % 18.0 - 42.0 % 24.2 14.0 (L) Monocytes % 1.0 - 11.0 % 9.5 10.0 Eosinophils % 0.0 - 6.0 % 0.9 Basophils % 0.0 - 2.0 % 0.5 Absolute Neutrophils 1.80 - 7.70 K/uL 2.87 5.47 Absolute Lymphocytes 1.00 - 4.80 K/uL 1.07 1.02 Absolute Monocytes 0.00 - 1.10 K/uL 0.42 0.73 Absolute Eosinophils 0.00 - 0.70 K/uL 0.04 Absolute Basophils 0.00 - 0.20 K/uL 0.02 WBC 4.00 - 10.80 K/uL 4.42 7.29 RBC 4.50 - 5.25 M/uL 3.22 3.55 HGB 14.0 - 16.8 g/dL 10.7 (L) 11.8 (L) HCT 40.0 - 48.4 % 32.6 (L) 36.0 (L) MCV 82.0 - 99.5 fL 101.2 101.4 MCH 27.0 - 34.0 pg 33.2 33.2 MCHC 32.0 - 36.0 g/dL 32.8 32.8 RDW 11.5 - 15.5 % 16.7 16.5 PLT 140 - 400 K/uL 145 221 MPV 6.6 - 11.1 fL 9.0 9.2 Metamyelocytes % <=0.0 % 1.0 (H) Absolute Metamyelocytes <=0.00 K/uL 0.07 (H) Ferritin 30 - 400 ng/mL 88 92 (L) Low (H) High See top of note for assessment/plan Scheduled appointments in the next 60 days: Future Appointments-next 60 days Date/Time Provider Specialty Dept Phone 07/18/2023 3:00 PM Berny Power PA-C [facility] [phone] 07/20/2023 8:00 AM [facility] Draw [facility] Laboratory Processing [phone] 07/21/2023 9:00 AM [facility] Nurse Triage [place] [facility] [phone] 07/24/2023 4:00 PM Peggy De RN [facility] [phone] 07/27/2023 8:00 AM [facility] Draw [facility] Laboratory Processing [phone] 08/02/2023 11:20 AM Flu Shot [facility] [phone] 08/03/2023 8:00 AM [facility] Draw [facility] Laboratory Processing [phone] 08/10/2023 8:00 AM [facility] Draw [facility] Laboratory Processing [phone] 08/17/2023 8:00 AM [facility] Draw [facility] Laboratory Processing [phone] 08/24/2023 8:00 AM [facility] Draw [facility] Laboratory Processing [phone] 08/29/2023 3:15 PM Kalpesh Funes MD Urology [phone] 08/31/2023 8:00 AM [facility] Draw [facility] Laboratory Processing [phone] 09/04/2023 11:00 AM (Arrive by 10:45 AM) HALLIE Mrashall Cardiology [phone] 09/07/2023 8:00 AM [facility] Draw [facility] Laboratory Processing [phone] 09/14/2023 8:00 AM [facility] Draw [facility] Laboratory Processing [phone] 09/21/2023 8:00 AM [facility] Draw [facility] Laboratory Processing [phone] 09/21/2023 1:30 PM (Arrive by 1:15 PM) Nataly Stone PA-C Nephrology [phone] 09/28/2023 8:00 AM [facility] Draw [facility] Laboratory Processing [phone] 10/05/2023 8:00 AM [facility] Draw [facility] Laboratory Processing [phone] 10/12/2023 8:00 AM [facility] Draw [facility] Laboratory Processing [phone] 10/19/2023 8:00 AM [facility] Draw [facility] Laboratory Processing [phone] 11/03/2023 2:00 PM Nurse Annual Wellness [facility] Ancillary [phone] Berny Power PA-C [facility], [address] [place] [address] documented in this encounter Miscellaneous Notes * ACP (Advance Care Planning) - Berny Power PA-C - 07/20/2023 8:31 AM EDT Patient-centered Communication 07/18/2023 The patient/surrogate voluntarily agreed to participate in advance care planning discussion. They were advised that this is a separate service which may incur out of pocket cost in the form of copayment and/or deductibles. Location: Home Individual(s) present for conversation: Patient and Spouse Decisions Synopsis SmartLink Most Recent Value Past ~10 years 02/20/2023 11:53 Decisions CPR decision: Patient chooses CPR 02/20/2023 Patient chooses CPR Intubation/Mechanical Ventilation decision: Patient chooses Intubation/mechanical ventilation 02/20/2023 Patient chooses Intubation/mechanical ventilation Non-invasive ventilation or BIPAP decision: Patient chooses non-invasive ventilation. Select interventions below 02/20/2023 Patient chooses non-invasive ventilation. Select interventions below Non-Invasive Ventilation Interventions: Oxygen only 02/20/2023 Oxygen only Antibiotic therapy decision: Patient chooses Antibiotic therapy 02/20/2023 Patient chooses Antibiotic therapy Artificial nutrition decision: Declines Artificial nutrition 02/20/2023 Declines Artificial nutrition IV hydration decision: Patient chooses IV hydration 02/20/2023 Patient chooses IV hydration Chemotherapy decision: Undecided about Chemotherapy 03/22/2022 Radiation therapy decision: Undecided about Radiation therapy 03/22/2022 Blood transfusion decision: Patient chooses Blood transfusion 02/20/2023 Patient chooses Blood transfusion Lab draw decision: Patient chooses Lab draws 02/20/2023 Patient chooses Lab draws Dialysis decision: Undecided about Dialysis 03/22/2022 Additional Comments Discerning What Matters Most to the Patient: Synopsis SmartAdelphic Mobile Most Recent Value Past ~10 years 07/20/2023 08:30 Discerning What Matters Most to the Patient In their own words, patient's UNDERSTANDING of their illness is: " i think my parkinsons is slowly getting worse" 07/20/2023 " i think my parkinsons is slowly getting worse" Their current SYMPTOMS include: Reduced overall well being 07/20/2023 Reduced overall well being Was PROGNOSIS discussed? Yes 07/20/2023 Yes Progression of illness described as: A gradual decline 07/20/2023 A gradual decline The patient's HOPES are: Maintain current functional abilities;Avoid the mcc 07/20/2023 Maintain current functional abilities;Avoid the mcc The patient defines LIVING WELL as: being able to mow grass and work around the house 07/15/2022 Source: Content from [employer] Content Program Aligning Care With What Matters Most: Synopsis Addepar Most Recent Value Past ~10 years 02/20/2023 11:53 Aligning Care With What Matters Most In their own words, the patient's understanding of their prognosis: I think I'm doing pretty good- now last year that wasn't the case. 03/22/2022 Interventions/Choices: CPR;Intubation/mechanical ventilation;Non-invasive ventilation or BIPAP;Antibiotic therapy;Artificial nutrition;IV hydration;Blood transfusion;Lab draws 02/20/2023 CPR;Intubation/mechanical ventilation;Non-invasive ventilation or BIPAP;Antibiotic therapy;Artificial nutrition;IV hydration;Blood transfusion;Lab draws Rationale for Decisions Synopsis SmartLink Most Recent Value Past ~10 years 10/25/2022 14:21 CPR Their goals for CPR treatment are: recovery 10/25/2022 recovery Source: Content from Respecting Choices Program 30 minutes spent in direct [id number] discussion today, Berny Power PA-C documented in this encounter Plan of Treatment Upcoming Encounters Date Type Specialty Care Team Description 07/21/2023 Scheduled Telephone [facility] Snehal Nobles Nurse Triage [address] [place] [address] 07/24/2023 Home Visit [facility] Peggy De RN [address] [place] [address] 07/27/2023 Laboratory Laboratory Processing [facility], [facility] Mobile Home Draw [address] [place] [address] 08/02/2023 Immunization Ancillary Nir[facility], Flu Shot Clinic Fam Prac [address] [place] [address] 08/03/2023 Laboratory Laboratory Processing [facility], [facility] Mobile Home Draw [address] [place] [address] 08/10/2023 Laboratory Laboratory Processing [facility], [facility] Mobile Home Draw [address] [place] [address] 08/17/2023 Laboratory Laboratory Processing [facility], [facility] Mobile Home Draw [address] [place] [address] 08/24/2023 Laboratory Laboratory Processing [facility] Draw [address] [place] [address] 08/29/2023 Office Visit Urology Kalpesh Funes MD [address] [place] [address] 08/31/2023 Laboratory Laboratory Processing [facility] Draw [address] [place] [address] 09/04/2023 Office Visit Cardiology Leah Aguilera CRNP [address] [place] [address] 09/07/2023 Laboratory Laboratory Processing [facility] Draw [address] [place] [address] 09/14/2023 Laboratory Laboratory Processing [facility] Draw [address] [place] [address] 09/21/2023 Laboratory Laboratory Processing [facility] Draw [address] [place] [address] 09/21/2023 Office Visit Nephrology Nataly Stone PA-C [address] [place] [address] 09/28/2023 Laboratory Laboratory Processing [facility] Draw [address] [place] [address] 10/05/2023 Laboratory Laboratory Processing [facility] Draw [address] [place] [address] 10/12/2023 Laboratory Laboratory Processing [facility], [facility] Mobile Home Draw [address] [place] [address] 10/19/2023 Laboratory Laboratory Processing [facility], [facility] Mobile Home Draw [address] [place] [address] 11/03/2023 Nurse Only Ancillary Nurse Jeronimo Annual [facility]ness Niru [address] [place] [address] Scheduled Procedures Name Priority Associated Diagnoses Date/Ti [...] 023, 03/08/2019, 04/09/2014 CKD PHOS USE SMARTSET 23608 12/27/2023 12/26/2022, 0 06/21/2021 CKD HGB USE SMARTSET 18815 07/13/202407/13, 07/13/2023, 07/06/2023, Additional history exists COLONOSCOPY-EVERY 3 YRS AGES [...] this encounter Medical Devices Implanted Type Area Nursing Assistants Teacher Device Identifier Shelf Expiration Date Model / Serial / Lot Lens Intraoc 22.5 - [id number] - [id number] Implanted:Qty: 1 on 05/22/2018 by Jasbir Maurer MD at [facility] Right: Eye [employer] 11/22/2022 [id number] / [id number] / [id number] Lens Intraoc 21.0 - [id number] - [id number] Implanted:Qty: 1 on 06/05/2018 by Jasbir Maurer MD at OR [facility] Left: Eye [employer] 12/20/2022 [id number] / [id number] / documented as of this encounter Visit Diagnoses Diagnosis Bilateral leg edema- Primary Edema Blister of right lower extremity without infection, initial encounter Hypertensive 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) Primary parkinsonism Paralysis agitans 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HCC) Paroxysmal atrial fibrillation (HCC) Atrial fibrillation Advanced care planning/counseling discussion Other specified counseling documented in this encounter Advance Directives Latest [...] Care Power of Attor mayela Care Teams Bear Keeper Relationship Specialty Start Date End Date Michael Hinton MD [address] [place] [address] PCP - General Family Medicine 08/07/17 documented as of this encounter
--- OUTSIDE RECORDS SUMMARY | 2023-10-07 03:06 | External Medical Summary ---
Author Name Unknown Address Unknown Organization [id number]:[facility] [place] [address] [place] [address] Laboratory Report Ordering Provider Test Date Status AVNI LUIS 07/20/2023 10:10:00 Final Observation Date Value Abnormality Reference (Units ) Status Ferritin 07/20/2023 10:10:00 94 30-400 (ng /mL) Final Performing Location [facility] [place] [address] [place] [address]
--- OUTSIDE RECORDS SUMMARY | 2023-10-07 03:06 | External Medical Summary ---
Author Name Unknown Address Unknown Organization [id number]:LABORATORY [facility] [address] - [address] [place] [id number] Laboratory Report Ordering Provider Test Date Status AVNI LUIS 06/29/2023 08:55:00 Final Observation Date Value Abnormality Reference (Units ) Status WBC, Total 06/29/2023 08:55:00 4.36 4.00-10.8 0 (K/uL) Final RBC 06/29/2023 08:55:00 3.31 4.50-5.25 (M/uL) Final Hemoglobin 06/29/2023 08:55:00 11.0 Below low normal 14 .0-16.8 (g/dL) Final HCT 06/29/2023 08:55:00 33.2 Below low normal 40. 0-48.4 (%) Final MCV 06/29/2023 08:55:00 100.3 82.0-99.5 (fL) Final MCH 06/29/2023 08:55:00 33.2 27.0-34.0 (pg) Final MCHC 06/29/2023 08:55:00 33.1 32.0-36.0 (g/dL) Final RDW 06/29/2023 08:55:00 17.1 11.5-15.5 (%) Final Platelets 06/29/2023 08:55:00 157 140-400 (K /uL) Final MPV 06/29/2023 08:55:00 9.2 6.6-11.1 ( fL) Final Performing Location [facility]ATORY [facility] 0 - [address] [place] [address]
--- OUTSIDE RECORDS SUMMARY | 2023-10-07 03:06 | External Medical Summary ---
Author Name Unknown Address Unknown [facility] K[facility] [address] [place] [id number] Laboratory Report Ordering Provider Test Date Status AVNI LUIS 07/06/2023 09:30:00 Final Observation Date Value Abnormality Reference (Units ) Status Nucleated erythrocytes/100 leukocytes [Ratio] in Blood by Automated count 07/06/2023 09:30:00 Final Performing Location [facility] - [address] [place] [id number]
--- OUTSIDE RECORDS SUMMARY | 2023-10-07 03:06 | External Medical Summary ---
Author Name Unknown Address Unknown Organization [id number]:LABORATORY [facility] [address] - [address] [place] [id number] Laboratory Report Ordering Provider Test Date Status AVNI LUIS 07/13/2023 09:47:00 Final Observation Date Value Abnormality Reference (Units ) Status WBC, Total 07/13/2023 09:47:00 7.29 4.00-10.8 0 (K/uL) Final RBC 07/13/2023 09:47:00 3.55 4.50-5.25 (M/uL) Final Hemoglobin 07/13/2023 09:47:00 11.8 Below low normal 14 .0-16.8 (g/dL) Final HCT 07/13/2023 09:47:00 36.0 Below low normal 40. 0-48.4 (%) Final MCV 07/13/2023 09:47:00 101.4 82.0-99.5 (fL) Final MCH 07/13/2023 09:47:00 33.2 27.0-34.0 (pg) Final MCHC 07/13/2023 09:47:00 32.8 32.0-36.0 (g/dL) Final RDW 07/13/2023 09:47:00 16.5 11.5-15.5 (%) Final Platelets 07/13/2023 09:47:00 221 140-400 (K /uL) Final MPV 07/13/2023 09:47:00 9.2 6.6-11.1 ( fL) Final Performing Location LABORATORY [facility] [address] - [address] [place] [address]
--- OUTSIDE RECORDS SUMMARY | 2023-10-07 03:06 | External Medical Summary ---
Author Name Unknown Address Unknown Organization [id number]:[facility] [address] [place] [id number] Laboratory Report Ordering Provider Test Date Status AVNI LUIS 07/20/2023 10:10:00 Final Observation Date Value Abnormality Reference (Units ) Status WBC, Total 07/20/2023 10:10:00 7.21 4.00-10.8 0 (K/uL) Final RBC 07/20/2023 10:10:00 3.38 4.50-5.25 (M/uL) Final Hemoglobin 07/20/2023 10:10:00 11.3 Below low normal 14 .0-16.8 (g/dL) Final HCT 07/20/2023 10:10:00 34.9 Below low normal 40. 0-48.4 (%) Final MCV 07/20/2023 10:10:00 103.3 82.0-99.5 (fL) Final MCH 07/20/2023 10:10:00 33.4 27.0-34.0 (pg) Final MCHC 07/20/2023 10:10:00 32.4 32.0-36.0 (g/dL) Final RDW 07/20/2023 10:10:00 16.0 11.5-15.5 (%) Final Platelets 07/20/2023 10:10:00 159 140-400 (K /uL) Final MPV 07/20/2023 10:10:00 9.6 6.6-11.1 ( fL) Final Performing Location [facility] [address] [place] [address]
--- OUTSIDE RECORDS SUMMARY | 2023-10-07 03:06 | External Medical Summary | Summary of Care ---
Author Name Unknown Organization [facility] Address [address] [place] [address] Phone [phone] Care Team Providers Care Cloth Trimmer Hand Name Role Phone Michael Hinton MD Primary Care Provider [phone] Reason for Visit * Reason Onset Date Comments Appointment 06/30/2023 Encounter Details Date Type Department Care Team Description 06/30/2023 Telephone [facility] [place] [address] [place], [place] [address] Services, Scheduling [address] [place] [address] Appointment (//) Allergies Active Allergy Reactions Severity Noted Date Comments Fabiano Inhibitors Cough 06/09/2017 Carbidopa W-Levodopa 03/17/2021 Constipation Nsaids Rash 05/17/2018 Contraindicated per supervisor pyrotechnic loading documented as of this encounter (statuses as of 06/30/2023) Medications Medication Sig Dispensed Refills Start Date [...] mitral valve regurgitation,Krista nary artery disease involving pilot [place] coronary artery of [place] heart without angina pectoris,Paroxysma l atrial fibrillation [...] mouth daily. 100 Tablet 3 06/23/2023 Active documented as of this encounter (statuses as of 06/30/2023) Active Problems Problem Noted Date History of cellulitis 05/02/2023 Last Assessment & [...] Last Assessment & Plan: Followed closely by [facility] hematology. No identified cause of HUNTER. 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 Coronary artery disease due to calcified [...] as of this encounter (statuses as of 06/30/2023) Immunizations Name Administration Dates Next Due COVID-19 mRNA, LNP-s, No Pre serve, 2-Dose Series (InishTech) 11/03/2021,12/19/2020,11/28/2020 Covid-19 Ad26, Single Dose (Taking Point/J&J) 12/19/2020,11/28/2020 DTaP Dipth/Tet/Acell Pertussis (Infanrix), Peds 10/24/2019 Pneumococcal Conjugate Vacc, 13 Valent (Prevnar) 04/27/2016 Pneumococcal Polysaccharide PPV23 (Pneumovax) 08/27/2009 Season Influenza, Quad, PF, Adjuvanted, 65+ Yrs, IM (FLUAD) 07/07/2020 Seasonal Influenza Virus Vac cine, Unspecified Formulation 07/07/2020,07/31/2019,07/04/2018,10/0 01/2017,08/23/2016,07/25/2016,07/03/20 15,07/14/2014,07/06/2013,07/13/2012,0 07/15/2011,07/27/2010,07/02/2009,09/03,08/28/2007,08/28/2006, 5 Seasonal Influenza, PF, 6 [...] encounter Miscellaneous Notes * Telephone Encounter - LARRY Velasquez - 06/30/2023 12:41 PM EDT Call to spouse to confirm rescheduled rncm ret hv to 07/24 at 4pm, spouse agreeable documented in this encounter Plan of Treatment Upcoming Encounters Date Type Specialty Care Team Description 07/06/2023 Laboratory Laboratory Processing [facility], [facility] Mobile Home Draw [address] [place] [address] 07/06/2023 Home Visit [facility] Berny Power PA-C [address] [place] [address] 07/13/2023 Laboratory Laboratory Processing [facility], [facility] Mobile Home Draw [address] [place] [address] 07/20/2023 Laboratory Laboratory Processing [facility], [facility] Mobile Home Draw [address] [place] [address] 07/21/2023 Scheduled Telephone [facility] Giuliano [facility] Nurse Triage [address] [place] [address] 07/24/2023 Home Visit [facility] Peggy De RN [address] [place] [address] 07/27/2023 Laboratory Laboratory Processing [facility], [facility] Mobile Home Draw [address] [place] [address] 08/02/2023 Immunization Ancillary Niru, Flu Shot Clinic Fam Prac [address] [place] [address] 08/03/2023 Laboratory Laboratory Processing [facility], [facility] Mobile Home Draw [address] [place] [address] 08/10/2023 Laboratory Laboratory Processing [facility] Draw [address] [place] [address] 08/17/2023 Laboratory Laboratory Processing [facility], [facility] Mobile Home Draw [address] [place] [address] 08/24/2023 Laboratory Laboratory Processing [facility] Mobile Home Draw [address] [place] [address] 08/29/2023 Office Visit Urology Kalpesh Funes MD [address] [address] 08/31/2023 Laboratory Laboratory Processing [facility], [facility] Mobile Home Draw [address] [place] [address] 09/04/2023 Office Visit Cardiology WillyLeah smith CRNP [address] [place] [address] 09/07/2023 Laboratory Laboratory Processing [facility], [facility] Mobile Home Draw [address] [place] [address] 09/14/2023 Laboratory Laboratory Processing [facility], [facility] Mobile Home Draw [address] [place] [address] 09/21/2023 Laboratory Laboratory Processing [facility], [facility] Mobile Home Draw [address] [place] [address] 09/21/2023 Office Visit Nephrology Nataly Stone PA-C [address] [place] [address] 09/28/2023 Laboratory Laboratory Processing [facility], [facility] Mobile Home Draw [address] [place] [address] 10/05/2023 Laboratory Laboratory Processing [facility], [facility] Mobile Home Draw [address] [place] [address] 10/12/2023 Laboratory Laboratory Processing [facility], [facility] Mobile Home Draw [address] [place] [address] 10/19/2023 Laboratory Laboratory Processing [facility], [facility] Mobile Home Draw [address] [place] [address] 11/03/2023 Nurse Only Ancillary Nurse Jeronimo Annual Wellness [address] [address] Scheduled Procedures Name Priority Associated Diagnoses Date/Ti [...] 023, 03/08/2019, 04/09/2014 CKD PHOS USE SMARTSET 13495 12/27/2023 12/26/2022, 0 06/21/2021 CKD HGB USE SMARTSET 24476 06/29/202406/29, 06/29/2023, 06/22/2023, Additional history exists COLONOSCOPY-EVERY 3 YRS AGES [...] this encounter Medical Devices Implanted Type Area Diamond Driller Device Identifier Shelf Expiration Date Model / Serial / Lot Lens Intraoc 22.5 - [id number] - [id number] Implanted:Qty: 1 on 05/22/2018 by Jasbir Maurer MD at OR [facility] Right: Eye [employer]OM[employer] 11/22/2022 [id number] / [id number] Lens Intraoc 21.0 - [id number] - [id number] Implanted:Qty: 1 on 06/05/2018 by Jasbir Maurer MD at OR [facility] Left: Eye BAUSCH [employer] LOMB 12/20/2022 [id number] / [id number] / documented as of this encounter Advance [...] Care Power of Attor mayela Care Teams Cloth Trimmer Hand Relationship Specialty Start Date End Date Michael Hinton MD [address] [place] [address] PCP - General Family Medicine 08/07/17 documented as of this encounter
--- OUTSIDE RECORDS SUMMARY | 2023-10-07 03:06 | External Medical Summary | Summary of Care ---
Author Name Unknown Organization [facility] Address [address] [place] [address] Phone [phone] Care Team Providers Care Machine Hose Cutter Name Role Phone Michael Hinton MD Primary Care Provider [phone] Reason for Visit * Reason Comments Acute Mouth sores Encounter Details Date Type Department Care Team Description 07/06/2023 Office Visit Family Practice [facility] [address] [place] [address] Lata Ayala, [address] [place] [address] Canker sores oral*; Dry mouth Allergies Active Allergy Reactions Severity Noted Date Comments Fabiano Inhibitors Cough 06/09/2017 Carbidopa W-Levodopa 03/17/2021 Constipation Nsaids Rash 05/17/2018 Contraindicated per retail beauty specialist documented as of this encounter (statuses as of 07/06/2023) Medications Medication Sig Dispensed Refills Start Date [...] as of this encounter (statuses as of 07/06/2023) Active Problems Problem Noted Date History of [...] Last Assessment & Plan: Followed closely by [facility] hematology. No identified cause of [...] knees Coronary artery disease invo lving [place] [...] as of this encounter (statuses as of 07/06/2023) Resolved Problems Problem Noted Date Resolved Date [...] 11/13/[address] bains, [facility]. 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 [...] as of this encounter (statuses as of 07/06/2023) Immunizations Name Administration Dates Next Due COVID-19 mRNA, LNP-s, No Pre serve, 2-Dose Series (MaintenanceNet) 11/03/2021,12/19/2020,11/28/2020 Covid-19 Ad26, Single Dose ([employer]/J&J) 12/19/2020,11/28/2020 DTaP Dipth/Tet/Acell Pertussis (Infanrix), Peds 10/24/2019 [...] Sign Reading Time Taken Comments Blood Pressure 122/60 07/06/2023 11:23 AM EDT Pulse 68 07/06/2023 11:23 AM EDT Temperature 35.9 C (96.6 F) 07/06/2023 11:23 AM E DT Respiratory Rate - - Oxygen Saturation 95% 07/06/2023 11:23 AM EDT Inhaled Oxygen Concentration - - Weight - - Height - - Body Mass Index - - documented in this encounter Progress Notes * Lata Ayala, - 07/06/2023 11:31 AM EDT Subjective: Jesus Jose is a 78 year old male. Chief Complaint Patient presents with Acute Mouth sores Nursing Notes: Carlota Elise LPN 07/06/23 1123 Sign at exiting of workspace The patient has been properly identified by confirmation of name and date of . Chief Complaint Patient presents with Acute Mouth sores This has been ongoing for months, on and off. Pt states they are all through mouth, on tongue, and gums. Hard to eat at times. Pt denies any fevers. No drainage. Pt went to the dentist, he did not suggest anything further as they were clearing up when pt was using salt water rinse and peroxyl rinse. HPI: This is a 78 year old male with PMHx as below presents with mouth sores x months Painful Does have ENT provider [facility] - seen for ears, but advised to contact them regarding new mouth sores and dry mouth. 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 Primary osteoarthritis of both knees M17.0 Coronary artery disease involving [place] coronary artery of [place] heart without angina pectoris I25.10 HTN, goal below 130/80 I10 Type 2 diabetes mellitus with hemoglobin A1c goal of less than 8.0% (HCC) 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, 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, 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 100 Tablet 3 Benzonatate 100 MG Oral Capsule Take 2 Capsules by mouth 3 times a day as needed for Cough. (Patient not taking: Reported on 04/17/2023) 30 Capsule 1 Vitamin D (Cholecalciferol) 25 MCG (1000 UT) Oral Capsule Take 1 Capsule by mouth every evening. (Patient not taking: Reported on 04/12/2023) 30 Capsule 0 No current facility-administered medications for this [...] hemoglobin A1c goal of less than 8.0% ([facility]) 07/26/2018 Past Surgical History: Procedure Laterality Date C-/T-SPINE PARAVERTEBRAL FACET INJ, 1 LEVEL 03/11/2015 C-/T-SPINE PARAVERTEBRAL FACET INJ, 1 LEVEL performed by Magdi Campos, at OR [facility] CARPAL TUNNEL SURGERY Carpal Tunnel repair COLONOSCOPY, DIAGNOSTIC (RECTUM) 03/24/2015 normal, repeat 10 yrs/COLONOSCOPY FLEXIBLE PROXIMAL DIAGNOSTIC performed by Francis Perez MD at ENDOSCOPY [facility] COLONOSCOPY, DIAGNOSTIC (RECTUM) 09/12/2022 benign adenomatous polyp, diverticulosis, repeat 3 yrs / [facility] COLONOSCOPY, GI REFERRAL OP 10/23/2004 normal - repeat 10 years EGD, FLEXIBLE, DIAGNOSTIC N/A 09/09/2022 normal/EGD/MN INFORMATION hammer toe surgery INFORMATION 10/23/2004 right ankle fusion NM LAMINECTOMY,GREATER THAN 2 SGMT,CERVICAL 01/25/2021 C3-6 laminectomy and posterior fusion, [facility] NM LAMINECTOMY,GREATER THAN 2 SGMT,CERVICAL N/A 01/25/2021 [facility] [place] C3-C6 lami REMOVE CATARACT, INSERT LENS PROSTH Right 05/22/2018 right EXTRACAPSULAR CATARACT REMOVAL WITH INTRAOCULAR LENS performed by Jasbir Maurer MD at OR [facility] REMOVE CATARACT, INSERT LENS PROSTH Left 06/05/2018 left EXTRACAPSULAR CATARACT REMOVAL WITH INTRAOCULAR LENS performed by Jasbir Maurer MD at OR [facility] REMOVE TONSILS & ADENOIDS, UNDER 12 Tonsillectomy/Adenoids,<12 Y/O REVISE HORIZONTAL EYE MUSCLE Strabissmus Surgery REVISE UPPER EYELID 04/14/2011 DIEGO Sung TOTAL HIP REPLACEMENT & PROSTHESIS 06/01/2012 RT Hip Replacement Review of patient's allergies indicates: Allergen Reactions Fabiano Inhibitors Cough Carbidopa W-Levodopa Constipation Nsaids Rash Contraindicated per retail beauty specialist Family History Problem Relation Age of Onset Heart Disorder Mother CAD age 72 Lung Disorder Mother COPD Hypertension Father Stroke Father No Past Hx Brother Asthma Daughter Mental Disorder Daughter Bipolar disorder Family Status Relation Status Fa at age 40 hypertension Mo at age 86 heart problems Bro Alive Luther Alive Luther Alive bipolar Bro (Not Specified) Luther (Not Specified) Luther (Not Specified) Social History Socioeconomic History Marital status: Spouse name: Ashley Number of children: 2 Years of education: 12 Highest education level: Not on file Occupational History 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 Employer: [employer] Tobacco Use Smoking status: Never Smokeless tobacco: Never Vaping Use Vaping Use: Never used Substance and Sexual Activity Alcohol use: No Drug use: No Comment: medical marijuana Sexual activity: Yes Partners: Female Other Topics Concern Service No Blood Transfusions No Caffeine Concern No Comment: few cups day Occupational Exposure No Hobby Hazards No Sleep Concern No Stress Concern No Weight Concern No Special Diet Yes Comment: low cholesterol Back Care No Exercise No Bike Helmet No Seat Belt Yes Self-Exams Yes Social History Narrative Born [place], in [facility] since 1966 Social Determinants of Health Financial Resource Strain: Not on file Food Insecurity: No Food Insecurity Worried About Running Out of Food in the Last Year: Never true Ran Out of Food in the Last Year: Never true Transportation Needs: Not on file Physical Activity: Not on file Stress: Not on file Social Connections: Not on file Intimate Partner Violence: Not on file Housing Stability: Not on file Review of Systems: As per HPI all other ROS negative. Wt Readings from Last 3 Encounters: 04/12/23 81.2 kg (179 lb) 03/22/23 83.1 kg (183 lb 3.2 oz) 03/21/23 81.2 kg (179 lb) Results for orders placed or performed in visit on 07/06/23 CBC Result Value Ref Range WBC 4.42 4.00 - 10.80 K/uL RBC 3.22 4.50 - 5.25 M/uL HGB 10.7 (L) 14.0 - 16.8 g/dL HCT 32.6 (L) 40.0 - 48.4 % MCV 101.2 82.0 - 99.5 fL MCH 33.2 27.0 - 34.0 pg MCHC 32.8 32.0 - 36.0 g/dL RDW 16.7 11.5 - 15.5 % PLT 145 140 - 400 K/uL MPV 9.0 6.6 - 11.1 fL DIFFERENTIAL, AUTOMATED Result Value Ref Range WBC 4.42 4.00 - 10.80 K/uL Neutrophils % 64.9 40.0 - 75.0 % Lymphocytes % 24.2 18.0 - 42.0 % Monocytes % 9.5 1.0 - 11.0 % Eosinophils % 0.9 0.0 - 6.0 % Basophils % 0.5 0.0 - 2.0 % Absolute Neutrophils 2.87 1.80 - 7.70 K/uL Absolute Lymphocytes 1.07 1.00 - 4.80 K/ul Absolute Monocytes 0.42 0.00 - 1.10 K/uL Absolute Eosinophils 0.04 0.00 - 0.70 K/uL Absolute Basophils 0.02 0.00 - 0.20 K/uL DIFFERENTIAL, TECHNOLOGIST REVIEW Result Value Ref Range nRBCs *Note: Due to a large number of results and/or encounters for the requested time period, some results have not been displayed. A complete set of results can be found in Results Review. OBJECTIVE: Physical Exam: BP 122/60 | Pulse 68 | Temp 35.9 C (96.6 F) | SpO2 95% General: alert, healthy, and no distress Oropharynx: ulcers oral mucous/lips/tongue Canker sores oral (Primary) - predniSONE 20 MG Oral Tablet (Deltasone); Take 3 tabs for 3 days, 2 tabs for 3 days, 1 tab for 3 days, 1/2 tab for 3 days - Dexamethasone 0.5 MG/5ML Oral Elixir (Decadron); Take 5 mL by mouth in the morning and 5 mL at noon and 5 mL in the evening and 5 mL before bedtime. - Chlorhexidine Gluconate 0.12 % Mouth/Throat Solution (Periogard); Swish and spit 15 mL in the morning and 15 mL before bedtime. Dry mouth - Chlorhexidine Gluconate 0.12 % Mouth/Throat Solution (Periogard); Swish and spit 15 mL in the morning and 15 mL before bedtime. Lata Ayala DO documented in this encounter Nursing Notes * Carlota Elise LPN - 07/06/2023 11:20 AM EDT The patient has been properly identified by confirmation of name and date of . Chief Complaint Patient presents with Acute Mouth sores This has been ongoing for months, on and off. Pt states they are all through mouth, on tongue, and gums. Hard to eat at times. Pt denies any fevers. No drainage. Pt went to the dentist, he did not suggest anything further as they were clearing up when pt was using salt water rinse and peroxyl rinse. documented in this encounter Plan of Treatment Upcoming Encounters Date Type Specialty Care Team Description 07/13/2023 Laboratory Laboratory Processing [facility] Mobile Home Draw [address] [place] [address] 07/18/2023 [facility] Visit [facility] Berny Power PA-C [address] [facility] [place] [address] 07/20/2023 Laboratory Laboratory Processing [facility], [facility] Mobile Home Draw [address] [place] [address] 07/21/2023 Scheduled Telephone [facility] Nurse Triage [address] [place] [address] 07/24/2023 Home Visit [facility] Peggy De RN [address] [place] [address] 07/27/2023 Laboratory Laboratory Processing [facility] Mobile Home Draw [address] [place] [address] 08/02/2023 Immunization Ancillary Niru, Flu Shot Clinic Fam Prac [address] [place] [address] 08/03/2023 Laboratory Laboratory Processing [facility] Mobile Home Draw [address] [place] [address] 08/10/2023 Laboratory Laboratory Processing [facility] Mobile Home Draw [address] [place] [address] 08/17/2023 Laboratory Laboratory Processing [facility] Mobile Home Draw [address] [place] [address] 08/24/2023 Laboratory Laboratory Processing [facility] Mobile Home Draw [address] [place] [address] 08/29/2023 Office Visit Urology Kalpesh Funes MD 27 [facility] [address] [place] [address] 08/31/2023 Laboratory Laboratory Processing [facility] Mobile Home Draw [address] [place] [address] 09/04/2023 Office Visit Cardiology Leah Aguilera CRNP [address] [place] [address] 09/07/2023 Laboratory Laboratory Processing [facility], [facility] Mobile Home Draw [address] [place] [address] 09/14/2023 Laboratory Laboratory Processing [facility], [facility] Mobile Home Draw [address] [place] [address] 09/21/2023 Laboratory Laboratory Processing [facility], [facility] Mobile Home Draw [address] [place] [address] 09/21/2023 Office Visit Nephrology Nataly Stone PA-C [address] [place] [address] 09/28/2023 Laboratory Laboratory Processing [facility] Mobile Home Draw [address] [place] [address] 10/05/2023 Laboratory Laboratory Processing [facility], [facility] Mobile Home Draw [address] [place] [address] 10/12/2023 Laboratory Laboratory Processing [facility], [facility] Mobile Home Draw [address] [place] [address] 10/19/2023 Laboratory Laboratory Processing [facility], [facility] Mobile Home Draw [address] [place] [address] 11/03/2023 Nurse Only Ancillary Jeronimo, Nurse Annual Wellness Niru [address] [place] [address] Scheduled Procedures Name Priority Associated Diagnoses Date/Ti me COLONOSCOPY FLEXIBLE PROXIMAL DIAGNOSTIC Recall History of colon polyps Health Maintenance Due Date Last Done Comments Hepatitis C Screening 1963 Diabetic Foot Exam 03/27/2021 03/27/2020, 08/23/2018 COVID-19 Vaccine (5 - Pfizer series) 12/29/2021 11/03/2021, 12/19/2020, 12/19/2020, Additional history exists Influenza Vaccine (FLU shot) (#1) 2023 07/13/2022, 07/23/2021, 07/07/2020, Additional history exists HbA1c 10/12/2023 04/12/2023, 030 03/2023, 03/22/2022, Additional history exists DIABETES-EYE EXAM 11/01/2023 11/01/2022, , 08/04/2011, Additional history exists Depression Screening 11/02/2023 11/02/2022 GFR 11/04/2023 05/04/2023, 03/23, 03/16/2023, Additional history exists Albumin/Creatinine Ratio 12/27/2023 023, 03/08/2019, 04/09/2014 CKD PHOS USE SMARTSET 57019 12/27/2023 12/26/2022, 0 06/21/2021 CKD HGB USE SMARTSET 42117 07/06/202407/06, 07/06/2023, 06/29/2023, Additional history exists COLONOSCOPY-EVERY 3 YRS AGES [...] this encounter Medical Devices Implanted Type Area Manual Equipment Mechanic Device Identifier Shelf Expiration Date Model / Serial / Lot Lens Intraoc 22.5 - [id number] - [id number] Implanted:Qty: 1 on 05/22/2018 by Jasbir Maurer MD at OR [facility] Right: Eye [employer] 11/22/2022 [id number] / [id number] / [id number] Lens Intraoc 21.0 - [id number] - [id number] Implanted:Qty: 1 on 06/05/2018 by Jasbir Maurer MD at OR [facility] Left: Eye [employer]CH [employer] LOMB 12/20/2022 [id number] / [id number] / documented as of this encounter Visit Diagnoses Diagnosis Canker sores oral- Primary Oral aphthae Dry mouth Disturbance of salivary secretion documented in this encounter Advance Directives Latest [...] Care Power of Attor mayela Care Teams Machine Hose Cutter Relationship Specialty Start Date End Date Michael Hinton MD [address] [place] [address] [place] [address] PCP - General Family Medicine 08/07/17 documented as of this encounter
--- OUTSIDE RECORDS SUMMARY | 2023-10-07 03:06 | External Medical Summary ---
Author Name Unknown Address Unknown Organization K0G:[facility] [place] 57-[address] - [address] [place] [address] Laboratory Report Ordering Provider Test Date Status AVNI LUIS 06/29/2023 08:55:00 Final Observation Date Value Abnormality Reference (Units ) Status SYNC LEUKOCYTES IN BLOOD BY AUTOMATED COUNT 06/29/2023 08:55:00 4.36 4.00-10.80 (K/uL) Final Segs 06/29/2023 08:55:00 68.8 40.0-75.0 (%) Final Lymphs % 06/29/2023 08:55:00 22.7 18.0-42.0 (%) Final Monos 06/29/2023 08:55:00 6.9 1.0-11.0 (%) Final Eosinophils 06/29/2023 08:55:00 1.1 0.0-6.0 (%) Final Basos 06/29/2023 08:55:00 0.5 0.0-2.0 (%) Final Absolute Segs 06/29/2023 08:55:00 3.00 1.80-7.70 (K/uL) Final Lymphs, absolute 06/29/2023 08:55:00 0.99 Below low normal 1.00-4.80 (K/ul) Final Monos, Abs 06/29/2023 08:55:00 0.30 0.00-1.10 (K/uL) Final Eos, Abs 06/29/2023 08:55:00 0.05 0.00-0.70 (K/uL) Final Basos, Abs 06/29/2023 08:55:00 0.02 0.00-0.20 (K/uL) Final Performing Location [facility] [place] 57-1 0 - [address] [place] [id number]
--- OUTSIDE RECORDS SUMMARY | 2023-10-07 03:06 | External Medical Summary ---
Author Name Unknown Address Unknown Organization [id number]:[facility] [place] [address] [place] [address] Laboratory Report Ordering Provider Test Date Status AVNI LUIS 07/13/2023 09:47:00 Final Observation Date Value Abnormality Reference (Units ) Status Ferritin 07/13/2023 09:47:00 92 30-400 (ng /mL) Final Performing Location [facility] [place] [address] [place] [address]
--- OUTSIDE RECORDS SUMMARY | 2023-10-07 03:06 | External Medical Summary ---
Author Name Unknown Address Unknown Organization K[facility] - [address] [place] [address] Laboratory Report Ordering Provider Test Date Status AVNI LUIS 07/20/2023 10:10:00 Final Observation Date Value Abnormality Reference (Units ) Status Nucleated erythrocytes/100 leukocytes [Ratio] in Blood by Automated count 07/20/2023 10:10:00 Final Performing Location [facility] 0 - [address] [place] [address]
--- OUTSIDE RECORDS SUMMARY | 2023-10-07 03:06 | External Medical Summary ---
Author Name Unknown Address Unknown Organization K0G:[facility] [place] 57-[address] - [address] [place] [address] Laboratory Report Ordering Provider Test Date Status AVNI LUIS 07/20/2023 10:10:00 Final Observation Date Value Abnormality Reference (Units ) Status SYNC LEUKOCYTES IN BLOOD BY AUTOMATED COUNT 07/20/2023 10:10:00 7.21 4.00-10.80 (K/uL) Final Segs 07/20/2023 10:10:00 70.1 40.0-75.0 (%) Final Lymphs % 07/20/2023 10:10:00 19.6 18.0-42.0 (%) Final Monos 07/20/2023 10:10:00 9.3 1.0-11.0 (%) Final Eosinophils 07/20/2023 10:10:00 0.7 0.0-6.0 (%) Final Basos 07/20/2023 10:10:00 0.3 0.0-2.0 (%) Final Absolute Segs 07/20/2023 10:10:00 5.06 1.80-7.70 (K/uL) Final Lymphs, absolute 07/20/2023 10:10:00 1.41 1.00-4.80 (K/ul) Final Monos, Abs 07/20/2023 10:10:00 0.67 0.00-1.10 (K/uL) Final Eos, Abs 07/20/2023 10:10:00 0.05 0.00-0.70 (K/uL) Final Basos, Abs 07/20/2023 10:10:00 0.02 0.00-0.20 (K/uL) Final Performing Location [facility] [place] 57-[address] 0 - [address] [place] [id number]
--- OUTSIDE RECORDS SUMMARY | 2023-10-07 03:06 | External Medical Summary ---
Author Name Unknown Address Unknown Organization K0G:[facility] [place] 57-[address] - [address] [place] [id number] Laboratory Report Ordering Provider Test Date Status AVNI LUIS 07/06/2023 09:30:00 Final Observation Date Value Abnormality Reference (Units ) Status SYNC LEUKOCYTES IN BLOOD BY AUTOMATED COUNT 07/06/2023 09:30:00 4.42 4.00-10.80 (K/uL) Final Segs 07/06/2023 09:30:00 64.9 40.0-75.0 (%) Final Lymphs % 07/06/2023 09:30:00 24.2 18.0-42.0 (%) Final Monos 07/06/2023 09:30:00 9.5 1.0-11.0 (%) Final Eosinophils 07/06/2023 09:30:00 0.9 0.0-6.0 (%) Final Basos 07/06/2023 09:30:00 0.5 0.0-2.0 (%) Final Absolute Segs 07/06/2023 09:30:00 2.87 1.80-7.70 (K/uL) Final Lymphs, absolute 07/06/2023 09:30:00 1.07 1.00-4.80 (K/ul) Final Monos, Abs 07/06/2023 09:30:00 0.42 0.00-1.10 (K/uL) Final Eos, Abs 07/06/2023 09:30:00 0.04 0.00-0.70 (K/uL) Final Basos, Abs 07/06/2023 09:30:00 0.02 0.00-0.20 (K/uL) Final Performing Location [facility] 0 - [address] [place] [address]
--- OUTSIDE RECORDS SUMMARY | 2023-10-07 03:06 | External Medical Summary ---
Author Name Unknown Address Unknown Organization K0G:[facility] [place] [facility] 57-[address] - [address] [place] [address] Laboratory Report Ordering Provider Test Date Status TOBYAVNI 07/13/2023 09:47:00 Final Observation Date Value Abnormality Reference (Units ) Status SYNC LEUKOCYTES IN BLOOD BY AUTOMATED COUNT 07/13/2023 09:47:00 7.29 4.00-10.80 (K/uL) Final Neutrophils/100 leukocytes in Blood by Manual count 07/13/2023 09:47:00 75.0 40.0-75.0 (%) Final Lymphocytes/100 leukocytes in Blood by Manual count 07/13/2023 09:47:00 14.0 Below low normal 18.0-42.0 (%) Final Monocytes/100 leukocytes in Blood by Manual count 07/13/2023 09:47:00 10.0 1.0-11.0 (%) Final Metamyelocytes/100 leukocytes in Blood by Manual count 07/13/2023 09:47:00 1.0 Above high normal <=0.0 (%) Final Neutrophils [#/volume] in Blood by Manual count 07/13/2023 09:47:00 5.47 1.80-7.70 (K/uL) Final Lymphocytes [#/volume] in Blood by Manual count 07/13/2023 09:47:00 1.02 1.00-4.80 (K/uL) Final Monocytes [#/volume] in Blood by Manual count 07/13/2023 09:47:00 0.73 0.00-1.10 (K/uL) Final Metamyelocytes [#/volume] in Blood by Manual count 07/13/2023 09:47:00 0.07 Above high normal <=0.00 (K/uL) Final Nucleated erythrocytes/100 leukocytes [Ratio] in Blood by Automated count 07/13/2023 09:47:00 Final Performing Location [facility] [place] [facility] 57-[address] 0 - [address] [place] [address]
--- OUTSIDE RECORDS SUMMARY | 2023-10-07 03:06 | External Medical Summary | Summary of Care ---
Author Name Unknown Organization [facility] Address [address] [place] [address] Phone [phone] Care Team Providers Care Cyber Security Manager Name Role Phone Michael Hinton MD Primary Care Provider [phone] Reason for Visit * Reason Onset Date Comments Appointment 07/05/2023 Encounter Details Date Type Department Care Team Description 07/05/2023 Telephone [facility] [place] [address] [place] [address] [id number] Services, Scheduling [address] [place] [address] Appointment (//) Allergies Active Allergy Reactions Severity Noted Date Comments Fabiano Inhibitors Cough 06/09/2017 Carbidopa W-Levodopa 03/17/2021 Constipation Nsaids Rash 05/17/2018 Contraindicated per computer hardware technician documented as of this encounter (statuses as of 07/05/2023) Medications Medication Sig Dispensed Refills Start Date [...] mitral valve regurgitation,Krista nary artery disease involving chickaloon coronary artery of 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 No identified cause of HUNTER. 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 [...] as of this encounter (statuses as of 07/05/2023) Immunizations Name Administration Dates Next Due COVID-19 mRNA, LNP-s, No Pre serve, 2-Dose Series (Sinimanes) 11/03/2021,12/19/2020,11/28/2020 Covid-19 Ad26, Single Dose (Soy/J&J) 12/19/2020,11/28/2020 [...] * Telephone Encounter - LARRY Velasquez - 07/05/2023 3:46 PM EDT Inbound call from spouse asking to r/s AP visit to 07/18 at 3pm documented in this encounter Plan of Treatment Upcoming Encounters Date Type Specialty Care Team Description 07/06/2023 Laboratory Laboratory Processing [facility] Mobile Home Draw [address] [place] [address] 07/06/2023 Office Visit Family Medicine Lata Ayala DO [address] [place] [address] 07/13/2023 Laboratory Laboratory Processing [facility] Mobile Home Draw [address] [place] [address] 07/18/2023 Home Visit [facility] Berny Power PA-C [address] [facility] [place] [address] 07/20/2023 Laboratory Laboratory Processing [facility] Mobile Home Draw [address] [place] [address] 07/21/2023 Scheduled Telephone [facility] Nurse Triage [address] [place] [address] 07/24/2023 Home Visit [facility] Peggy De RN [address] [place] [address] 07/27/2023 Laboratory Laboratory Processing [facility], [facility] Mobile Home Draw [address] [place] [address] 08/02/2023 Immunization Ancillary Nir[facility], Flu Shot [facility] Fam Prac [address] [place] [address] 08/03/2023 Laboratory Laboratory Processing [facility] Mobile [facility] Draw [address] [place] [address] 08/10/2023 Laboratory Laboratory Processing [facility] Draw [address] [place] [address] 08/17/2023 Laboratory Laboratory Processing [facility] Draw [address] [place] [address] 08/24/2023 Laboratory Laboratory Processing [facility] Draw [address] [place] [address] 08/29/2023 Office Visit Urology Kalpesh Funes MD [address] [address] 08/31/2023 Laboratory Laboratory Processing [facility] Draw [address] [place] [address] 09/04/2023 Office Visit Cardiology Leah Aguilera CRNP [address] [place] [address] 09/07/2023 Laboratory Laboratory Processing [facility] Draw [address] [place] [address] 09/14/2023 Laboratory Laboratory Processing [facility] Draw [address] [place] [address] 09/21/2023 Laboratory Laboratory Processing [facility] Mobile [facility] Draw [address] [place] [address] 09/21/2023 Office Visit Nephrology Nataly Stone PA-C [address] [place] [address] 09/28/2023 Laboratory Laboratory Processing [facility] Mobile Home Draw [address] [place] [address] 10/05/2023 Laboratory Laboratory Processing [facility] Mobile Home Draw [address] [place] [address] 10/12/2023 Laboratory Laboratory Processing [facility] Mobile Home Draw [address] [place] [address] 10/19/2023 Laboratory Laboratory Processing [facility] Mobile Home Draw [address] [place] [address] 11/03/2023 Nurse Only Ancillary Jeronimo Nurse Annual Wellness Niru [address] [place] [address] Scheduled Procedures Name Priority Associated Diagnoses Date/Ti [...] 023, 03/08/2019, 04/09/2014 CKD PHOS USE SMARTSET 33915 12/27/2023 12/26/2022, 0 06/21/2021 CKD HGB USE SMARTSET 87523 06/29/202406/29, 06/29/2023, 06/22/2023, Additional history exists COLONOSCOPY-EVERY [...] this encounter Medical Devices Implanted Type Area Consulting Services Associate Device Identifier Shelf Expiration Date Model / Serial / Lot Lens Intraoc 22.5 - [id number] - [id number] Implanted:Qty: 1 on 05/22/2018 by Jasbir Maurer MD at OR [facility] Right: Eye [employer] 11/22/2022 [id number] / [id number] / [id number] Lens Intraoc 21.0 - [id number] - [id number] Implanted:Qty: 1 on 06/05/2018 by Jasbir Maurer MD at OR [facility] Left: Eye [employer] 12/20/2022 [id number] / [id number] / documented as of this encounter Advance [...] Agents on File Name Relationship Healthcare Agent [facility] Communication Ashley Fantasma Jose Spouse Health Care Power of Attor [place] Care Teams Cyber Security Manager Relationship Specialty Start Date End Date Michael Hinton MD [address] [place] [address] PCP - General Family Medicine 08/07/17 documented as of this encounter
--- OUTSIDE RECORDS SUMMARY | 2023-10-07 03:06 | External Medical Summary ---
Author Name Unknown Address Unknown Organization K01:[facility] [place] [address] [place] [address] Laboratory Report Ordering Provider Test Date Status AVNI LUIS 06/29/2023 08:55:00 Final Observation Date Value Abnormality Reference (Units ) Status Ferritin 06/29/2023 08:55:00 118 30-400 (ng /mL) Final Performing Location [facility] [place] [address] [place] [address]
--- OUTSIDE RECORDS SUMMARY | 2023-10-07 03:06 | External Medical Summary ---
Author Name Unknown Address Unknown Organization K01:[facility] [place] [address] [address] Laboratory Report Ordering Provider Test Date Status AVNI LUIS 07/06/2023 09:30:00 Final Observation Date Value Abnormality Reference (Units ) Status Ferritin 07/06/2023 09:30:00 88 30-400 (ng /mL) Final Performing Location [facility] [place] [address] [place] [address]
--- OUTSIDE RECORDS SUMMARY | 2023-10-07 03:07 | External Medical Summary ---
Author Name Unknown Address Unknown Organization K0G:[facility]ORY [place] 57-10 - [address] [place] [address] Laboratory Report Ordering Provider Test Date Status AVNI LUIS 06/15/2023 08:33:00 Final Observation Date Value Abnormality Reference (Units ) Status WBC, Total 06/15/2023 08:33:00 3.77 Below low normal 4. 00-10.80 (K/uL) Final RBC 06/15/2023 08:33:00 3.32 4.50-5.25 (M/uL) Final Hemoglobin 06/15/2023 08:33:00 10.9 Below low normal 14 .0-16.8 (g/dL) Final HCT 06/15/2023 08:33:00 32.9 Below low normal 40. 0-48.4 (%) Final MCV 06/15/2023 08:33:00 99.1 82.0-99.5 (fL) Final MCH 06/15/2023 08:33:00 32.8 27.0-34.0 (pg) Final MCHC 06/15/2023 08:33:00 33.1 32.0-36.0 (g/dL) Final RDW 06/15/2023 08:33:00 16.4 11.5-15.5 (%) Final Platelets 06/15/2023 08:33:00 147 140-400 (K /uL) Final MPV 06/15/2023 08:33:00 9.5 6.6-11.1 ( fL) Final Performing Location LAB[facility]ORY [place] 57-1 0 - [address] [facility] [place] [address]
--- OUTSIDE RECORDS SUMMARY | 2023-10-07 03:07 | External Medical Summary | Summary of Care ---
Author Name Unknown Organization [facility] Address [address] [place] [address] Phone [phone] Care Team Providers Care Architectural Representative Name Role Phone Michael Hinton MD Primary Care Provider [phone] Reason for Visit * Reason Onset Date Comments [facility]: Maintenance 06/19/2023 Encounter Details Date Type Department Care Team Description 06/19/2023 Scheduled Telephone [facility], [facility] [address] [facility] [place] [address] [facility] Nurse Triage [address] [place] [address] Allergies Active Allergy Reactions Severity Noted Date Comments Fabiano Inhibitors Cough 06/09/2017 Carbidopa W-Levodopa 03/17/2021 Constipation Nsaids Rash 05/17/2018 Contraindicated per picker tender documented as of this encounter (statuses as of 06/19/2023) Medications Medication Sig Dispensed Refills Start Date [...] MORNING 90 Capsule 3 12/13/2022 4 Active metFORMIN HCl ER 500 MG Oral Tablet Extended Release 24 Hour (Glucophage XR) TAKE ONE TABLET BY MOUTH EVERY DAY 90 Tablet 1 10/20/2022 3 Active Betamethasone Dipropionate 0.05 % External OintmentIndication s:Inflamed seborrheic keratosis APPLY TO SKIN LESIONS AND SCALP LESIONS UP TO TWO TIMES A DAY FOR NO LONGER THAN 2 WEEKS AT A TIME FOR ITCH. (THEN TAKE A 2 WEEK BREAK) 45 g 2 05/01/2023 4 Active Torsemide 20 MG Oral Tablet (Demadex)Indicatio ns:Nonrheumatic mitral valve regurgitation,Krista nary artery disease involving chicken ranch coronary artery of [place] heart without angina pectoris,Paroxysma l atrial fibrillation (HCC),Stage 3b chronic kidney disease (HCC) Take 1 Tablet by mouth in the morning. 180 Tablet 3 05/02/2023 Active DIURETIC TITRATION PLAN If no improvement on day 3, contact heart failure managing provider. 1 Each 0 05/02/2023 Active documented as of this encounter (statuses as of 06/19/2023) Active Problems Problem Noted Date History of [...] Last Assessment & Plan: Followed closely by [facility] hematology. 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 [...] as of this encounter (statuses as of 06/19/2023) Immunizations Name Administration Dates Next Due COVID-19 mRNA, LNP-s, No Pre serve, 2-Dose Series ([employer] 11/03/2021,12/19/2020,11/28/2020 Covid-19 Ad26, Single Dose (Soy/J&J) 12/19/2020,11/28/2020 DTaP - Dipth/Tet/Acell Pertussis 10/24/2019 Pneumococcal Conjugate Vacc, 13 Valent (Prevnar) 04/27/2016 Pneumococcal Polysaccharide PPV23 (Pneumovax) 08/27/2009 Season Influenza, Quad, PF, Adjuvanted, 65+ Yrs, IM (FLUAD) 07/07/2020 Seasonal Influenza Virus Vac cine, Unspecified Formulation 07/07/2020,07/31/2019,07/04/2018,1001/2017,08/23/2016,07/25/2016,07/03/20 15,07/14/2014,07/06/2013,07/13/2012,0 07/15/2011,07/27/2010,07/02/2009,09/03,08/28/2007,08/28/2006, 5 Seasonal Influenza, PF, 6 [...] Telephone Encounter - Esperanza Plummer RN - 06/19/2023 9:22 AM EDT Images from the original note were not included. [facility] Telephonic Visit Date: 06/19/2023 Time: 10:22 AM Name: Jesus Jose : 1945 Spoke with spouse, Ashley, states Jesus is doing pretty good today. Reports that his right leg is starting to swell on Monday, denies any redness/warmth to leg, no open areas noted, encourages him to keep leg elevated at all times, no energy, chronic, believes he has no energy because he refuses to exercise daily. Weight today 165.8 Problems/Symptoms HPI: Constitutional: no weight loss, no weakness, and + fatigue Resp: no cough, no sputum, no wheezing, no SOB, and no hemoptysis Cardiac: no chest pain, no orthopnea, no dyspnea on exertion, and + mild edema (pathological) GI: no pain, no heartburn, no diarrhea, no constipation, no blood/melena, no nausea, no vomiting Musculoskeletal: no significant joint or muscle pain and +swelling to rle Neuro: no memory loss, no weakness, no falling, no numbness or tingling, and no vertigo Medication Reconciliation: Does patient take medications as ordered: Yes, spouse sets up daily medications, no changes in medications No refills needed at this time Monthly follow up scheduled with me, Peggy De in 3 weeks Esperanza Plummer RN 06/19/2023 documented in this encounter Plan of Treatment Upcoming Encounters Date Type Specialty Care Team Description 06/22/2023 Laboratory Laboratory Processing [facility] Mobile Home Draw [address] [place] [address] 06/29/2023 Laboratory Laboratory Processing [facility] Mobile Home Draw [address] [place] [address] 07/06/2023 Laboratory Laboratory Processing [facility] Mobile [facility] Draw [address] [place] [address] 07/06/2023 Home Visit [facility] Berny Power PA-C [address] [place] [address] 07/11/2023 Home Visit [facility] Peggy De RN [address] [place] [address] 07/13/2023 Laboratory Laboratory Processing [facility] Mobile [facility] Draw [address] [place] [address] 07/20/2023 Laboratory Laboratory Processing [facility] Mobile [facility] Draw [address] [place] [address] 07/21/2023 Scheduled Telephone [facility] [place] Nurse Triage [address] [place] [address] 07/27/2023 Laboratory Laboratory Processing [facility] Mobile Home Draw [address] [place] [address] 08/03/2023 Laboratory Laboratory Processing [facility] Mobile [facility] Draw [address] [place] [address] 08/10/2023 Laboratory Laboratory Processing [facility] Mobile Home Draw [address] [place] [address] 08/17/2023 Laboratory Laboratory Processing [facility] Mobile Home Draw [address] [place] [address] 08/24/2023 Laboratory Laboratory Processing [facility] Draw [address] [place] [address] 08/29/2023 Office Visit Urology Kalpesh Funes MD [address] [address] 08/31/2023 Laboratory Laboratory Processing [facility] Draw [address] [place] [address] 09/04/2023 Office Visit Cardiology WillyLeah smith CRNP [address] [place] [address] 09/07/2023 Laboratory Laboratory Processing [facility] Draw [address] [place] [address] 09/14/2023 Laboratory Laboratory Processing [facility] Draw [address] [place] [address] 09/21/2023 Laboratory Laboratory Processing [facility] Mobile Home Draw [address] [place] [address] 09/21/2023 Office Visit Nephrology Nataly Stone PA-C [address] [place] [address] 09/28/2023 Laboratory Laboratory Processing [facility] Draw [address] [place] [address] 10/05/2023 Laboratory Laboratory Processing [facility] Home Draw [address] [place] [address] 10/12/2023 Laboratory Laboratory Processing [facility] Mobile Home Draw [address] [place] [address] 10/19/2023 Laboratory Laboratory Processing [facility], [facility] Mobile Home Draw [address] [place] [address] 11/03/2023 Nurse Only Ancillary Nurse Jeronimo Annual Wellness Niru [address] [facility] [place] [address] Scheduled Procedures Name Priority Associated Diagnoses Date/Ti me COLONOSCOPY FLEXIBLE PROXIMAL DIAGNOSTIC Recall History of colon polyps Health Maintenance Due Date Last Done Comments Hepatitis C Screening 1963 DIABETES-FOOT EXAM 03/27/2021 03/27/2020, 08/23/2018 COVID-19 Vaccine (5 - Pfizer series) 12/29/2021 11/03/2021, 12/19/2020, 12/19/2020, Additional history exists Influenza Vaccine (FLU shot) (#1) 2023 07/13/2022, 07/23/2021, 07/07/2020, Additional history exists HbA1c 10/12/2023 04/12/2023, 03/0 03/2023, 03/22/2022, Additional history exists DIABETES-EYE EXAM 11/01/2023 11/01/2022, , 08/04/2011, Additional history exists Depression Screening, Annual for Pts 12 and Over 11/02/2023 11/02/2022 GFR 11/04/2023 05/04/2023, 03/23, 03/16/2023, Additional history exists Albumin/Creatinine Ratio 12/27/2023 023, 03/08/2019, 04/09/2014 CKD PHOS USE SMARTSET 64590 12/27/2023 12/26/2022, 0 06/21/2021 CKD HGB USE SMARTSET 37545 06/15/202406/15, 06/15/2023, 06/01/2023, Additional history exists COLONOSCOPY-EVERY 3 YRS AGES [...] this encounter Medical Devices Implanted Type Area Consumer Electronics Merchandiser Device Identifier Shelf Expiration Date Model / Serial / Lot Lens Intraoc 22.5 - [id number] - [id number] Implanted:Qty: 1 on 05/22/2018 by Jasbir Maurer MD at OR [facility] Right: Eye [employer] 11/22/2022 [id number] / [id number] / [id number] Lens Intraoc 21.0 - [id number] - [id number] Implanted:Qty: 1 on 06/05/2018 by Jasbir Maurer MD at OR [facility] Left: Eye [employer] 12/20/2022 [id number] / [id number] / documented as of this encounter Advance [...] Agents on File Name [facility] Jose Spouse Health Care Power of Attor mayela Care Teams Architectural Representative Relationship Specialty Start Date End Date Michael Hinton MD [address] [place] [address] PCP - General Family Medicine 08/07/17 documented as of this encounter
--- OUTSIDE RECORDS SUMMARY | 2023-10-07 03:07 | External Medical Summary | Summary of Care ---
Author Name Unknown Organization [facility] Address [address] [place] [address] Phone [phone] Care Team Providers Care Freelance Recruiter Name Role Phone Serjio Hinton MD Primary Care Provider [phone] Encounter Details Date Type Department Care Team Description 06/23/2023 Refill Family Practice [facility] [address] [facility] [place] [address] Serjio Hinton MD [address] [place] [address] Allergies Active Allergy Reactions Severity Noted Date Comments Fabiano Inhibitors Cough 06/09/2017 Carbidopa W-Levodopa 03/17/2021 Constipation Nsaids Rash 05/17/2018 Contraindicated per head of sales promotion documented as of this encounter (statuses as of 06/23/2023) Medications Medication Sig Dispensed Refills Start Date [...] 90 Capsule 3 12/13/2022 12/13/19 24 Active Betamethasone Dipropionate 0.05 % External OintmentIndicatio ns:Inflamed seborrheic keratosis APPLY TO SKIN LESIONS AND SCALP LESIONS UP TO TWO TIMES A DAY FOR NO LONGER THAN 2 WEEKS AT A TIME FOR ITCH. 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 100 Tablet 3 06/23/2023 Active metFORMIN HCl ER 500 MG Oral Tablet Extended Release 24 Hour (Glucophage XR) TAKE ONE TABLET BY MOUTH EVERY DAY 90 Tablet 1 10/20/2022 06/23/20 23 Discontinu ed(Refill) documented as of this encounter (statuses as of 06/23/2023) Active Problems Problem Noted Date History of [...] Last Assessment & Plan: Followed closely by [facility] hematology. No identified cause of HUNTER. [...] both knees Coronary artery disease invo lving [place] coronary artery of [place] heart without angina pectoris 03/21/2018 Last Assessment [...] as of this encounter (statuses as of 06/23/2023) Resolved Problems Problem Noted Date Resolved Date [...] as of this encounter (statuses as of 06/23/2023) Immunizations Name Administration Dates Next Due COVID-19 mRNA, LNP-s, No Pre serve, 2-Dose Series ([employer]) 11/03/2021,12/19/2020,11/28/2020 Covid-19 Ad26, Single Dose ([employer]J&J) 12/19/2020,11/28/2020 DTaP - Dipth/Tet/Acell Pertussis 10/24/2019 Pneumococcal [...] encounter Miscellaneous Notes * Telephone Encounter - Serjio Hinton MD - 06/23/2023 11:38 AM EDTSigned Prescriptions: Disp Refills metFORMIN HCl ER 500 MG Oral Tablet Extend*100 Ta*3 Sig: Take 1 Tablet by mouth daily.Authorizing Provider: SERJIO HINTON * Telephone Encounter - Radha Stone RPh - 06/23/2023 11:27 AM EDT REFILL REQUEST: Metformin ER 500mg [facility] Adherence Pharmacist requesting 100 day supply for member to be sent to [facility]. Through our STAR Medication Adherence program, patient flagged as non-compliant to medications and was contacted to discuss medication adherence. Jesus needs a new prescription to be sent to [facility]. Radha Stone [facility] Pharmacist [facility] [phone] [email or web address] documented in this encounter Plan of Treatment Upcoming Encounters Date Type Specialty Care Team Description 06/29/2023 Laboratory Laboratory Processing [facility] Mobile Home Draw [address] [place] [address] 07/06/2023 Laboratory Laboratory Processing [facility] Home Draw [address] [place] [address] 07/06/2023 Home Visit [facility] Berny Power PA-C [address] [facility] [place] [address] 07/11/2023 Home Visit [facility] Peggy De RN [address] [place] [address] 07/13/2023 Laboratory Laboratory Processing [facility] Mobile [facility] Draw [address] [place] [address] 07/20/2023 Laboratory Laboratory Processing [facility] Draw [address] [place] [address] 07/21/2023 Scheduled Telephone [facility] José Miguel Nobles Nurse Triage [address] [place] [address] 07/27/2023 Laboratory Laboratory Processing [facility] Draw [address] [place] [address] 08/03/2023 Laboratory Laboratory Processing [facility] Draw [address] [place] [address] 08/10/2023 Laboratory Laboratory Processing [facility] Draw [address] [place] [address] 08/17/2023 Laboratory Laboratory Processing [facility] Draw [address] [place] [address] 08/24/2023 Laboratory Laboratory Processing [facility] Draw [address] [place] [address] 08/29/2023 Office Visit Urology Kalpesh Funes MD [address] [place] [address] 08/31/2023 Laboratory Laboratory Processing [facility] Draw [address] [place] [address] 09/04/2023 Office Visit Cardiology Leah Aguilera CRNP [address] [place] [address] 09/07/2023 Laboratory Laboratory Processing [facility] Draw [address] [place] [address] 09/14/2023 Laboratory Laboratory Processing [facility] Draw [address] [place] [address] 09/21/2023 Laboratory Laboratory Processing [facility] Draw [address] [place] [address] 09/21/2023 Office Visit Nephrology Nataly Stone PA-C [address] [place] [address] 09/28/2023 Laboratory Laboratory Processing [facility] Draw [address] [place] [address] 10/05/2023 Laboratory Laboratory Processing [facility] Draw [address] [place] [address] 10/12/2023 Laboratory Laboratory Processing [facility] Draw [address] [place] [address] 10/19/2023 Laboratory Laboratory Processing [facility] Draw [address] [place] [address] 11/03/2023 Nurse Only Ancillary Decker, Nurse Annual Wellness Niru [address] [place] [address] Scheduled Procedures Name Priority Associated Diagnoses Date/Ti me COLONOSCOPY FLEXIBLE PROXIMAL DIAGNOSTIC Recall History of colon polyps Health Maintenance Due Date Last Done Comments Hepatitis C Screening 1963 DIABETES-FOOT EXAM 03/27/2021 03/27/2020, 08/23/2018 COVID-19 Vaccine (5 - Pfizer series) 12/29/2021 11/03/2021, 12/19/2020, 12/19/2020, Additional history exists Influenza Vaccine (FLU shot) (#1) 2023 07/13/2022, 07/23/2021, 07/07/2020, Additional history exists HbA1c 10/12/2023 04/12/2023, 03/2023, 03/22/2022, Additional history exists DIABETES-EYE EXAM 11/01/2023 11/01/2022, , 08/04/2011, Additional history exists Depression Screening, Annual for Pts 12 and Over 11/02/2023 11/02/2022 GFR 11/04/2023 05/04/2023, 03/23, 03/16/2023, Additional history exists Albumin/Creatinine Ratio 12/27/2023 023, 03/08/2019, 04/09/2014 CKD PHOS USE SMARTSET 97393 12/27/2023 12/26/2022, 0 06/21/2021 CKD HGB USE SMARTSET 05857 06/22/202406/22, 06/22/2023, 06/15/2023, Additional history exists COLONOSCOPY-EVERY 3 YRS AGES [...] encounter Medical Devices Implanted Type Area Nursing Executive Device Identifier Shelf Expiration Date Model / Serial / Lot Lens Intraoc 22.5 - [id number] - [id number] Implanted:Qty: 1 on 05/22/2018 by Jasbir Maurer MD at OR [facility] Right: Eye [employer] 11/22/2022 [id number] / [id number] Lens Intraoc 21.0 - [id number] - [id number] Implanted:Qty: 1 on 06/05/2018 by Jasbir Maurer MD at OR [facility] Left: Eye [employer] 12/20/2022 [id number] / [id number] / documented as of this encounter Advance [...] Agents on File Name Relationship [facility] Agent [facility] Ashley Jose Spouse Health Care Power of Attor mayela Care Teams Freelance Recruiter Relationship Specialty Start Date End Date Serjio Hinton MD [address] [place] [address] PCP - General Family Medicine 08/07/17 documented as of this encounter
--- OUTSIDE RECORDS SUMMARY | 2023-10-07 03:07 | External Medical Summary ---
Author Name Unknown Address Unknown Organization K0G:[facility]ATORY [facility] - [address] [place] [id number] Laboratory Report Ordering Provider Test Date Status AVNI LUIS 06/22/2023 10:45:00 Final Observation Date Value Abnormality Reference (Units ) Status SYNC LEUKOCYTES IN BLOOD BY AUTOMATED COUNT 06/22/2023 10:45:00 4.56 4.00-10.80 (K/uL) Final Segs 06/22/2023 10:45:00 68.2 40.0-75.0 (%) Final Lymphs % 06/22/2023 10:45:00 21.1 18.0-42.0 (%) Final Monos 06/22/2023 10:45:00 9.4 1.0-11.0 (%) Final Eosinophils 06/22/2023 10:45:00 0.9 0.0-6.0 (%) Final Basos 06/22/2023 10:45:00 0.4 0.0-2.0 (%) Final Absolute Segs 06/22/2023 10:45:00 3.11 1.80-7.70 (K/uL) Final Lymphs, absolute 06/22/2023 10:45:00 0.96 Below low normal 1.00-4.80 (K/ul) Final Monos, Abs 06/22/2023 10:45:00 0.43 0.00-1.10 (K/uL) Final Eos, Abs 06/22/2023 10:45:00 0.04 0.00-0.70 (K/uL) Final Basos, Abs 06/22/2023 10:45:00 0.02 0.00-0.20 (K/uL) Final Performing Location [facility] - [address] [place] [id number]
--- OUTSIDE RECORDS SUMMARY | 2023-10-07 03:07 | External Medical Summary ---
Author Name Unknown Address Unknown Organization K01:[facility] [place] [address] [place] [address] [place] [address] Laboratory Report Ordering Provider Test Date Status AVNI LUIS 06/22/2023 10:45:00 Final Observation Date Value Abnormality Reference (Units ) Status Ferritin 06/22/2023 10:45:00 166 30-400 (ng /mL) Final Performing Location [facility] [place] [address] [facility] [place] [address]
--- OUTSIDE RECORDS SUMMARY | 2023-10-07 03:07 | External Medical Summary ---
Author Name Unknown Address Unknown Organization K0G:[facility]ATORY [employer] [address] - [address] [facility] [place] [address] Laboratory Report Ordering Provider Test Date Status AVNI LUIS 06/22/2023 10:45:00 Final Observation Date Value Abnormality Reference (Units ) Status Nucleated erythrocytes/100 leukocytes [Ratio] in Blood by Automated count 06/22/2023 10:45:00 Final Variant lymphocytes [Presence] in Blood by Light microscopy 06/22/2023 10:45:00 Present Abnormal None Seen Final Performing Location LABORATORY [employer] [address] - [address] [place] [address]
--- OUTSIDE RECORDS SUMMARY | 2023-10-07 03:07 | External Medical Summary ---
Author Name Unknown Address Unknown Organization K0G:LABORATORY [facility] [address] - [address] [place] [address] Laboratory Report Ordering Provider Test Date Status AVNI LUIS 06/22/2023 10:45:00 Final Observation Date Value Abnormality Reference (Units ) Status WBC, Total 06/22/2023 10:45:00 4.56 4.00-10.8 0 (K/uL) Final RBC 06/22/2023 10:45:00 3.46 4.50-5.25 (M/uL) Final Hemoglobin 06/22/2023 10:45:00 11.3 Below low normal 14 .0-16.8 (g/dL) Final HCT 06/22/2023 10:45:00 34.4 Below low normal 40. 0-48.4 (%) Final MCV 06/22/2023 10:45:00 99.4 82.0-99.5 (fL) Final MCH 06/22/2023 10:45:00 32.7 27.0-34.0 (pg) Final MCHC 06/22/2023 10:45:00 32.8 32.0-36.0 (g/dL) Final RDW 06/22/2023 10:45:00 17.1 11.5-15.5 (%) Final Platelets 06/22/2023 10:45:00 143 140-400 (K /uL) Final MPV 06/22/2023 10:45:00 9.4 6.6-11.1 ( fL) Final Performing Location LABORATORY [facility] 57[address] 0 - [address] [place] [address]
--- OUTSIDE RECORDS SUMMARY | 2023-10-07 03:07 | External Medical Summary | Summary of Care ---
Author Name Unknown Organization [facility] Address [address] [place] [address] Phone [phone] Care Team Providers Care Dietary Assistant Name Role Phone Michael Hinton MD Primary Care Provider [phone] Reason for Visit * Reason Onset Date Comments Health Maintenance 06/27/2023 Encounter Details Date Type Department Care Team Description 06/27/2023 Telephone Family Practice [facility] [address] [facility] [place] [id number] Michael Hinton MD [address] [facility] [place] [place] [address] Health Maintenance Allergies Active Allergy Reactions Severity Noted Date Comments Fabiano Inhibitors Cough 06/09/2017 Carbidopa W-Levodopa 03/17/2021 Constipation Nsaids Rash 05/17/2018 Contraindicated per automation machine builder documented as of this encounter (statuses as of 06/27/2023) Medications Medication Sig Dispensed Refills Start Date [...] mitral valve regurgitation,Krista nary artery disease involving [place] coronary artery of [place] heart without angina pectoris,Paroxysma l atrial fibrillation [...] as of this encounter (statuses as of 06/27/2023) Active Problems Problem Noted Date History of [...] Last Assessment & Plan: Followed closely by [facility] hematology. No identified cause of [...] both knees Coronary artery disease invo lving [place] coronary artery of [place] heart without angina pectoris 03/21/2018 Last Assessment [...] as of this encounter (statuses as of 06/27/2023) Resolved Problems Problem Noted Date Resolved Date [...] scanned document from 11/13/[address] [facility]. Coronary artery disease due to [...] as of this encounter (statuses as of 06/27/2023) Immunizations Name Administration Dates Next Due COVID-19 mRNA, LNP-s, No Pre serve, 2-Dose Series ([employer]) 11/03/2021,12/19/2020,11/28/2020 Covid-19 Ad26, Single Dose ([employer]J&J) 12/19/2020,11/28/2020 [...] encounter Miscellaneous Notes * Telephone Encounter - Mayuri Simpson LPN - 06/27/2023 11:41 AM EDT Care Gaps Comprehensive Care Outreach Last Office/Telemedicine Visit: 01/02/2023 (in office), Visit date not found (telemedicine) Next Office Visit: Visit date not found Hemoglobin AIC Results: Lab Results Component Value Date/Time HEMOGLOBIN A1C - [facility] 6.1 (H) 04/12/2023 01:00 PM HEMOGLOBIN A1C - [facility] 5.9 (H) 12/26/2022 09:27 AM HEMOGLOBIN A1C - [facility] 5.5 03/22/2022 10:55 AM HEMOGLOBIN A1C - [facility] 6.3 (H) 03/18/2020 07:00 AM HEMOGLOBIN A1C - [facility] 6.4 (H) 09/09/2019 07:46 AM HEMOGLOBIN A1C - [facility] 6.4 (H) 03/08/2019 07:14 AM Reviewed Health Maintenance below: Health Maintenance Topic Date Due Hepatitis C Screening Never done DIABETES-FOOT EXAM 03/27/2021 COVID-19 Vaccine (5 - Pfizer series) 12/29/2021 Influenza Vaccine (FLU shot) (1) 06/23/2023 HbA1c 10/12/2023 DIABETES-EYE EXAM 11/01/2023 Depression Screening, Annual for Pts 12 and Over 11/02/2023 GFR 11/04/2023 Albumin/Creatinine Ratio 12/27/2023 CKD PHOS USE SMARTSET 59191 12/27/2023 [facility] gray flu Care Gap Outreach Action Taken: Unable to reach documented in this encounter Plan of Treatment Upcoming Encounters Date Type Specialty Care Team Description 06/29/2023 Laboratory Laboratory Processing [facility] Mobile Home Draw [address] [place] [address] 07/06/2023 Laboratory Laboratory Processing [facility] Mobile Home Draw [address] [place] [address] 07/06/2023 Home Visit [facility] Berny Power PA-C [address] [place] [address] 07/11/2023 Home Visit [facility] Peggy De RN [address] [place] [address] 07/13/2023 Laboratory Laboratory Processing [facility] Draw [address] [place] [address] 07/20/2023 Laboratory Laboratory Processing [facility] Draw [address] [place] [address] 07/21/2023 Scheduled Telephone [facility] Nurse Triage [address] [place] [address] 07/27/2023 Laboratory Laboratory Processing [facility] Draw [address] [place] [address] 08/03/2023 Laboratory Laboratory Processing [facility] Draw [address] [place] [address] 08/10/2023 Laboratory Laboratory Processing [facility] Draw [address] [place] [address] 08/17/2023 Laboratory Laboratory Processing [facility] Draw [address] [place] [address] 08/24/2023 Laboratory Laboratory Processing [facility] Draw [address] [place] [address] 08/29/2023 Office Visit Urology Kalpesh Funes MD [address] [address] [place] [address] 08/31/2023 Laboratory Laboratory Processing [facility] Draw [address] [place] [address] 09/04/2023 Office Visit Cardiology Willy, Leah Arenas, DEPLOYMENT TECHNICIAN [address] [place] [address] 09/07/2023 Laboratory Laboratory Processing [facility] Draw [address] [place] [address] 09/14/2023 Laboratory Laboratory Processing [facility] Draw [address] [place] [address] 09/21/2023 Laboratory Laboratory Processing [facility] Draw [address] [place] [address] 09/21/2023 Office Visit Nephrology Nataly Stone PA-C [address] [place] [address] 09/28/2023 Laboratory Laboratory Processing [facility] Draw [address] [place] [address] 10/05/2023 Laboratory Laboratory Processing [facility] Draw [address] [place] [address] 10/12/2023 Laboratory Laboratory Processing [facility] Draw [address] [place] [address] 10/19/2023 Laboratory Laboratory Processing [facility] Draw [address] [place] [address] 11/03/2023 Nurse Only Ancillary Decker, Nurse Annual Wellness Niru [address] [place] [address] Scheduled Procedures Name Priority Associated Diagnoses [...] 023, 03/08/2019, 04/09/2014 CKD PHOS USE SMARTSET 84184 12/27/2023 12/26/2022, 0 06/21/2021 CKD HGB USE SMARTSET 50461 06/22/202406/22, 06/22/2023, 06/15/2023, Additional history exists COLONOSCOPY-EVERY [...] this encounter Medical Devices Implanted Type Area Bolter Helper Device Identifier Shelf Expiration Date Model / Serial / Lot Lens Intraoc 22.5 - [id number] - [id number] Implanted:Qty: 1 on 05/22/2018 by Jasbir Maurer MD at OR [facility] Right: Eye [employer] 11/22/2022 [id number] / [id number] / [id number] Lens Intraoc 21.0 - [id number] - [id number] Implanted:Qty: 1 on 06/05/2018 by Jasbir Maurer MD at OR [facility] Left: Eye [employer] 12/20/2022 [id number] / [id number] / documented as of this encounter Advance [...] Agents on File Name Relationship Healthcare Agent Relationsil p Communication Ashley Jose Spouse Health Care Power of Attor mayela Care Teams Dietary Assistant Relationship Specialty Start Date End Date Michael Hinton MD [address] [place] [address] PCP - General Family Medicine 08/07/17 documented as of this encounter
--- OUTSIDE RECORDS SUMMARY | 2023-10-07 03:08 | External Medical Summary | Summary of Care ---
Author Name Unknown Organization [facility] Address [address] [place] [address] Phone [phone] Care Team Providers Care Reception Centre Manager Name Role Phone Michael Hinton MD Primary Care Provider [phone] Reason for Visit * Reason Comments [facility]: Maintenance Encounter Details Date Type Department Care Team Description 05/23/2023 Home Visit [facility] [address] [place] [address] Peggy De RN [address] [facility] [place] [address] Allergies Active Allergy Reactions Severity Noted Date Comments Fabiano Inhibitors Cough 06/09/2017 Carbidopa W-Levodopa 03/17/2021 Constipation Nsaids Rash 05/17/2018 Contraindicated per costume mistress documented as of this encounter (statuses as of 05/23/2023) Medications Medication Sig Dispensed Refills Start Date [...] mitral valve regurgitation,Krista nary artery disease involving [facility] coronary artery of [facility] heart without angina pectoris,Paroxysma l atrial fibrillation (HCC),Stage 3b chronic kidney disease (HCC) Take 1 Tablet by mouth in the morning. 180 Tablet 3 05/02/2023 Active DIURETIC TITRATION PLAN If no improvement on day 3, contact heart failure managing provider. 1 Each 0 05/02/2023 Active documented as of this encounter (statuses as of 05/23/2023) Active Problems Problem Noted Date History of [...] Last Assessment & Plan: Followed closely by [facility] hematology. No identified cause [...] both knees Coronary artery disease invo lving [facility] [place] [place] coronary artery of [facility] [place] [place] heart without angina pectoris 03/21/2018 Last Assessment [...] as of this encounter (statuses as of 05/23/2023) Resolved Problems Problem Noted Date Resolved Date [...] as of this encounter (statuses as of 05/23/2023) Immunizations Name Administration Dates Next Due COVID-19 mRNA, LNP-s, No Pre serve, 2-Dose Series ([email or web address]) 11/03/2021,12/19/2020,11/28/2020 Covid-19 Ad26, Single Dose (Soy/J&J) 12/19/2020,11/28/2020 DTaP - Dipth/Tet/Acell Pertussis 10/24/2019 Pneumococcal Conjugate Vacc, 13 Valent (Prevnar) 04/27/2016 Pneumococcal Polysaccharide PPV23 (Pneumovax) 08/27/2009 Seasonal Influenza Virus Vac cine, Unspecified Formulation 07/07/2020,07/31/2019,07/04/2018,10/0 01/2017,08/23/2016,07/25/2016,07/03/20 15,07/14/2014,07/06/2013,07/13/2012,0 07/15/2011,07/27/2010,07/02/2009,09/03,08/28/2007,08/28/2006, 5 Seasonal Influenza, QUAD, wi th Preserv, 6 mons & Above, 0.5 mL, IM 07/23/2021,07/07/2020 Seasonal Influenza, Quadriva lent Hd (Fluzone Hd) 07/13/2022 Seasonal Influenza, Quadriva lent, No Preserve, 6 Mons & Above, IM 07/31/2019,07/04/2018,07/26/2017 Seasonal Influenza, Quadriva lent, No Preserve, Adjuvanted, 65+ Yrs, IM 07/07/2020 Seasonal Influenza, Quadriva lent, No Preserve, IM [...] Sign Reading Time Taken Comments Blood Pressure 120/64 05/23/2023 10:07 AM EDT Pulse 60 05/23/2023 10:07 AM EDT Temperature 35.8 C (96.5 F) 05/23/2023 10:07 AM E DT Respiratory Rate 18 05/23/2023 10:07 AM EDT Oxygen Saturation 99% 05/23/2023 10:07 AM EDT Inhaled Oxygen Concentration - - Weight - - Height - - Body Mass Index - - documented in this encounter Progress Notes * Peggy De, RN - 05/23/2023 7:39 AM EDT Images from the original note were not included. [facility] [employer] Press Supervisor Visit Date: 05/23/2023 Time: 10:39 AM Name: Jesus Jose : 1945 Current Concerns: Pt seen for return RNCM visit Weighs self but unsure if accurate because he is unsteady on the scale Completed DTP 2 weeks ago d/t increased edema Also had BLE duplex and results were negative for DVT Today pt reports he is doing much better today Family present and concur that edema of legs has much improved He denies any new concerns at this time He continues to be unsteady on his feet and PT was discussed by reports he does not keep up with doing exercises as he is supposed to Physical Exam: BP 120/64 | Pulse 60 | Temp 35.8 C (96.5 F) | Resp 18 | SpO2 99% Pain 0 Physical Exam Constitutional: General: He is not in acute distress. Cardiovascular: Rate and Rhythm: Normal rate and regular rhythm. Pulses: Normal pulses. Heart sounds: Murmur heard. Pulmonary: Effort: Pulmonary effort is normal. Breath sounds: Normal breath sounds. Abdominal: General: Bowel sounds are normal. Palpations: Abdomen is soft. Musculoskeletal: Right lower leg: Edema (+1) present. Left lower leg: Edema (trace) present. Skin: General: Skin is warm and dry. Neurological: Mental Status: He is alert and oriented to person, place, and time. Problems/Symptoms: Review of Systems Constitutional: Negative. HENT: Positive for hearing loss. Eyes: Negative. Respiratory: Positive for shortness of breath (MUSTAFA - at baseline). Cardiovascular: Positive for leg swelling. Gastrointestinal: Negative. Endocrine: Negative. Genitourinary: Negative. Musculoskeletal: Positive for arthralgias and gait problem. Skin: Negative. Neurological: Positive for weakness ( BLE ). Psychiatric/Behavioral: Negative. Medication Reconciliation: (See medication list) Does patient take medications as ordered: Yes Patient Well Being: PHQ2/9: No questionnaires available. No change in living situation Denies falls [facility] Completed this Visit: No. Routine visit and No falls since last visit Advanced Care Planning: No documentation, ACP on file. Patient's Goals of Care: 1. Use cane instead of walker 2. Have more energy 3. Do my yardwork Reinforcement/Education: Reviewed HF symptom monitoring: -Weigh self daily [...] if at night -increased fatigue or vertigo Educated on home safety: Create a fall proof home o Clear floors of clutter, loose wires, throw rugs, and cords. o Make sure halls, stairways, and entrances are well lit. o Install a nightlight in your bedroom, hallway and bathroom. o Install grab bars or handrails in the bathroom and on stairs. o Use a non-skid tub/shower mat. o Avoid climbing on a chair; instead use a step stool with a high handrail. o Keep sidewalks and steps in good repair o Keep steps and sidewalks free of snow and ice. Using aids to support and prevent falls o If you have poor balance or have fallen in the past, consider additional support such as a cane or walker. o Use a cane with good support and that is the proper length for you. o Use a walker if a cane doesnt provide enough support. Avoid medications that increase the risk of falling by causing dizziness, change in sensation or slowed reflexes. o Certain medicines may cause falls - blood pressure pills, heart medicines, water pills, or sleeping pills. o Be sure to understand each medicine that you are taking and any side effects that may occur. Improve your balance and flexibility with muscle strengthening exercises. Ask your health care provider for some exercises that will be right for you. Reinforced safety education and fall prevention. and Reinforced medication regimen. Timing., Dosing. and Purspose. Treatment/Plan: apap 1000mg qam. And q8h prn - R knee pain Aspercreme with Lidocaine qam - R knee pain [facility] Scales ordered 02/28/23 Dry Wt as of 02/28/23: 179lbs Order placed for mobile phlebotomy to draw weekly cbcd and ferritin, message to Amy Tyler LPN to fax to Dr. Camacho weekly O2 2lnc qhs - Adonay's - [phone], wear at hs and during day in recliner (naps frequently) Fall precautions-use walker at all time Elevate bilateral LE when sitting in recliner Tubigrip to LE's daily Low Na diet,High protein, low sugar diet Home Interventions Provided: Home Intervention: Other; Evaluation Reinforced current Plan of Care, including self-management and medication regimen Patient's 'Red Flags': 1. Increased edema 2. Increased wt to 184 lbs 3. Increased SOB 4. Weakness, feeling cold - gets with infection Patient Needs to Remember: Call [facility] at with any new or worsening health concerns or problems, red flag symptoms. Referrals Needed: Other none Follow Up: Is there cellular connectivity/connectivity in the home? Yes Does the patient have internet in the home? Yes Patient encouraged to call the intake phone number for all urgent but not emergent issues. Is the patient new to [facility] within the last 30 days? No, Assess appropriateness for upcoming telehealth visits. Cancel telehealth visits & schedule home visit with care instrument repairer steam plant(s) as indicated. Provider is in agreement with Plan of Care: Yes Scheduled to follow up with patient in one month. Peggy De RN 05/23/2023 10:39 AM documented in this encounter Plan of Treatment Upcoming Encounters Date Type Specialty Care Team Description 05/25/2023 Laboratory Laboratory Processing [facility] Mobile Home Draw [address] [place] [address] 06/01/2023 Laboratory Laboratory Processing [facility] Draw [address] [place] [address] 06/08/2023 Laboratory Laboratory Processing [facility] Draw [address] [place] [address] 06/15/2023 Laboratory Laboratory Processing [facility] Draw [address] [place] [address] 06/19/2023 Home Visit [facility] Heavenly Tavarez RN [address] [place] [address] 06/22/2023 Laboratory Laboratory Processing [facility] Draw [address] [place] [address] 06/29/2023 Laboratory Laboratory Processing [facility] Draw [address] [place] [address] 07/06/2023 Laboratory Laboratory Processing [facility] Draw [address] [place] [address] 07/06/2023 Home Visit [facility] Yoshinorth windhamBerny PA-C [address] [place] [address] 07/13/2023 Laboratory Laboratory Processing [facility] Draw [address] [place] [address] 07/20/2023 Laboratory Laboratory Processing [facility] Draw [address] [place] [address] 07/27/2023 Laboratory Laboratory Processing [facility] Draw [address] [place] [address] 08/03/2023 Laboratory Laboratory Processing [facility] Mobile [facility] Draw [address] [place] [address] 08/10/2023 Laboratory Laboratory Processing [facility] Draw [address] [place] [address] 08/17/2023 Laboratory Laboratory Processing [facility] Draw [address] [place] [address] 08/24/2023 Laboratory Laboratory Processing [facility] Draw [address] [place] [address] 08/29/2023 Office Visit Urology Kalpesh Funes MD [address] [address] 08/31/2023 Laboratory Laboratory Processing [facility] Draw [address] [place] [address] 09/04/2023 Office Visit Cardiology Leah Aguilera CRNP [address] [place] [address] 09/07/2023 Laboratory Laboratory Processing [facility] Draw [address] [place] [address] 09/14/2023 Laboratory Laboratory Processing [facility] Draw [address] [place] [address] 09/21/2023 Laboratory Laboratory Processing [facility] Home Draw [address] [place] [address] 09/21/2023 Office Visit Nephrology Nataly Stone PA-C [address] [facility] [place] [address] 09/28/2023 Laboratory Laboratory Processing [facility] Mobile Home Draw [address] [place] [address] 10/05/2023 Laboratory Laboratory Processing [facility] Mobile Home Draw [address] [place] [address] 10/12/2023 Laboratory Laboratory Processing [facility] Mobile Home Draw [address] [place] [address] 10/19/2023 Laboratory Laboratory Processing [facility] Mobile Home Draw [address] [place] [address] 11/03/2023 Nurse Only Ancillary Nurse [facility] [address] [place] [address] Scheduled Procedures Name Priority Associated Diagnoses Date/Ti [...] 023, 03/08/2019, 04/09/2014 CKD PHOS USE SMARTSET 41341 12/27/2023 12/26/2022, 0 06/21/2021 CKD HGB USE SMARTSET 55786 05/18/202405/18, 05/18/2023, 05/11/2023, Additional history exists COLONOSCOPY-EVERY 3 YRS AGES [...] this encounter Medical Devices Implanted Type Area Milliner Helper Device Identifier Shelf Expiration Date Model / Serial / Lot Lens Intraoc 22.5 - [id number] - [id number] Implanted:Qty: 1 on 05/22/2018 by Jasbir Maurer MD at OR [facility] Right: Eye [employer] 11/22/2022 [id number] / [id number] / [id number] Lens Intraoc 21.0 - [id number] - [id number] Implanted:Qty: 1 on 06/05/2018 by Jasbir Maurer MD at OR [facility] Left: Eye [employer] 12/20/2022 [id number] / [id number] / documented as of this encounter Advance [...] Jose Spouse Health Care Power of Attor [place] Care Teams Reception Centre Manager Relationship Specialty Start Date End Date Michael Hinton MD [address] [place] [address] PCP - General Family Medicine 08/07/17 documented as of this encounter
--- OUTSIDE RECORDS SUMMARY | 2023-10-07 03:08 | External Medical Summary ---
Author Name Unknown Address Unknown Organization [id number] [address] [place] [id number] Laboratory Report Ordering Provider Test Date Status GUERRERO CHAUHAN 05/25/2023 09:36:00 Final Observation Date Value Abnormality Reference (Units ) Status WBC, Total 05/25/2023 09:36:00 4.48 4.00-10.8 0 (K/uL) Final RBC 05/25/2023 09:36:00 3.63 4.50-5.25 (M/uL) Final Hemoglobin 05/25/2023 09:36:00 11.5 Below low normal 14 .0-16.8 (g/dL) Final HCT 05/25/2023 09:36:00 35.8 Below low normal 40. 0-48.4 (%) Final MCV 05/25/2023 09:36:00 98.6 82.0-99.5 (fL) Final MCH 05/25/2023 09:36:00 31.7 27.0-34.0 (pg) Final MCHC 05/25/2023 09:36:00 32.1 32.0-36.0 (g/dL) Final RDW 05/25/2023 09:36:00 15.7 11.5-15.5 (%) Final Platelets 05/25/2023 09:36:00 131 Below low normal 140 -400 (K/uL) Final MPV 05/25/2023 09:36:00 10.2 6.6-11.1 ( fL) Final [facility] Location [facility] [address] [place] [id number]
--- OUTSIDE RECORDS SUMMARY | 2023-10-07 03:08 | External Medical Summary ---
Author Name Unknown Address Unknown Organization [facility] [address] [place] [id number] Laboratory Report Ordering Provider Test Date Status GUERRERO CHAUHAN 05/18/2023 10:51:00 Final Observation Date Value Abnormality Reference (Units ) Status WBC, Total 05/18/2023 10:51:00 4.17 4.00-10.8 0 (K/uL) Final RBC 05/18/2023 10:51:00 3.61 4.50-5.25 (M/uL) Final Hemoglobin 05/18/2023 10:51:00 11.4 Below low normal 14 .0-16.8 (g/dL) Final HCT 05/18/2023 10:51:00 36.0 Below low normal 40. 0-48.4 (%) Final MCV 05/18/2023 10:51:00 99.7 82.0-99.5 (fL) Final MCH 05/18/2023 10:51:00 31.6 27.0-34.0 (pg) Final MCHC 05/18/2023 10:51:00 31.7 32.0-36.0 (g/dL) Final RDW 05/18/2023 10:51:00 15.9 11.5-15.5 (%) Final Platelets 05/18/2023 10:51:00 132 Below low normal 140 -400 (K/uL) Final MPV 05/18/2023 10:51:00 9.9 6.6-11.1 ( fL) Final Performing Location [facility] [place] [address] [place] [id number]
--- OUTSIDE RECORDS SUMMARY | 2023-10-07 03:08 | External Medical Summary | Summary of Care ---
Author Name Unknown Organization [facility] Address [address] [place] [address] Phone [phone] Care Team Providers Care Wire Frame Maker Name Role Phone Michael Hinton MD Primary Care Provider [phone] Reason for Visit * Reason Onset Date Comments Test Results 03/10/202303/10, 03/14 Encounter Details Date Type Department Care Team Description 03/10/2023 Telephone Family Practice [facility] [address] [facility] [place] [address] Michael Hinton MD [address] [facility] [place] [address] Test Results (03/10, 03/14) Allergies Active Allergy Reactions Severity Noted Date Comments Fabiano Inhibitors Cough 06/09/2017 Carbidopa W-Levodopa 03/17/2021 Constipation Nsaids Rash 05/17/2018 Contraindicated 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 30 Capsule 1 02/26/20 23 Active Additional Information Patient not taking.Reported on 04/17/2023 Levalbuterol Tartrate 45 MCG/ACT Inhalation Aerosol (Xopenex HFA)Indications: Pneumonia of left lower lobe due to infectious organism Inhale 1 Puff by mouth every 6 hours as needed for Wheezing. Or coughing spells 15 g 12 03/10/20 23 Active escitalopram (LEXAPRO) 20 MG Tablet Take 1 Tab by mouth daily. 90 Tab 3 11/15/19 20 023 Discontinued(Me dication List Clean Up) Amantadine HCl 100 MG Oral Capsule (Symmetrel)Indic ations:Primary parkinsonism (HCC) Take 1 Cap by mouth 2 times a day. 60 Cap 0 03/04/20 21 023 Discontinued(Me dication List Clean Up) Donepezil HCl 5 MG Oral Tablet (Aricept)Indicat ions: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HCC),Hallucinat ions Take 1 Tab by mouth at bedtime. Take with largest meal of the day. 30 Tab 0 03/04/20 21 023 Discontinued(Me dication List Clean Up) Metoprolol Succinate ER 25 MG Oral Tablet Extended Release 24 Hour (toPROL XL) Take 1 Tablet by mouth in the morning. 0 06/21/20 21 023 Discontinued(Me dication List Clean Up) FeroSul 325 (65 Fe) MG Oral Tablet (Ferrous Sulfate) TAKE ONE TABLET IN THE MORNING AND ONE TABLET AT BEDTIME 180 Tablet 1 04/19/20 22 023 Discontinued(Re fill) Atorvastatin Calcium 40 MG Oral Tablet (Lipitor)Indicat ions:Dyslipidemi a, goal LDL below 70 Take by mouth 1 Tablet in the morning. 90 Tablet 0 05/03/20 22 022 Discontinued([facility] prescription brought in as discontinued) buPROPion HCl ER (XL) 150 MG Oral Tablet Extended Release 24 Hour (Wellbutrin XL) Take by mouth 1 Tablet in the morning. 100 Tablet 3 07/13/20 22 023 Discontinued(Re fill) Tamsulosin HCl 0.4 MG Oral Capsule (Flomax) Take by mouth 1 Capsule in the morning. 90 Capsule 3 08/23/20 22 023 Discontinued(Il dication List Clean Up) metFORMIN HCl ER 500 MG Oral Tablet Extended Release 24 Hour (Glucophage XR) Take one tablet by mouth daily 90 Tablet 1 10/20/20 22 022 Discontinued([facility] prescription brought in as discontinued) Pantoprazole Sodium 40 MG Oral Tablet Delayed Release (Protonix) TAKE ONE TABLET BY MOUTH EVERY DAY 90 Tablet 1 10/25/19 23 023 Discontinued Dutasteride 0.5 MG Oral Capsule (Avodart) Take 1 Capsule by mouth in the morning. 90 Capsule 3 12/13/19 23 023 Discontinued(Le M2TECHy prescription brought in as discontinued) Loperamide HCl 2 MG Oral Capsule (Imodium) TAKE ONE CAPSULE BY MOUTH EVERY 6 HOURS NEEDED FOR LOOSE STOOL 0 01/29/20 23 023 Discontinued(Il dication List Clean Up) Loperamide HCl 2 MG Oral Capsule (Imodium) 1 Capsule. 0 01/29/20 23 023 Discontinued Betamethasone Dipropionate 0.05 % External Ointment Apply to skin lesions and scalp lesions up to two times a day for no longer than 2 weeks at a time for itch (then take a 2 week break) 50 g 2 02/22/20 23 023 Discontinued([facility] g[facility] prescription brought in as discontinued) Amoxicillin-Pot Clavulanate 500-125 MG Oral Tablet (Augmentin)Indic ations:Bronchiti s, complicated Take 1 Tablet by mouth in the morning and 1 Tablet before bedtime. Do all this for 10 days. 20 Tablet 0 03/10/20 23 023 Torsemide 20 MG Oral Tablet (Demadex)Indicat ions:Chronic diastolic 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 (HCC),Acute on chronic congestive heart failure, unspecified heart failure type (HCC) 3 tablets by mouth daily 180 Tablet 3 03/10/20 23 023 Discontinued documented as of this encounter (statuses as of 06/02/2023) Active Problems Problem Noted Date History of [...] Last Assessment & Plan: Followed closely by [facility] hematology. No identified cause of HUNTER. [...] both knees Coronary artery disease invo lving [place] coronary artery of [place] heart without angina pectoris 03/21/2018 Last Assessment [...] as of this encounter (statuses as of 06/02/2023) Resolved Problems Problem Noted Date Resolved Date [...] scanned document from 11/13/[address] bains, [facility] [place]. 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 Thank you * Telephone Encounter - Ela Rose LPN - 03/14/2023 1:48 PM EDT Left message for pt's POA to call back. * Telephone Encounter - LARRY Chapa - 03/10/2023 3:38 PM EDT Reason for patient's call:Hannah Ramirez is calling to go over test results Please return call at:[phone] * Telephone Encounter - Ca Mccray LPN - 03/10/2023 3:22 PM EDT Left message for patient to call back regarding message below. * Telephone Encounter - Anel Leyva MD - 03/10/2023 3:11 PM EDT CXR - possibly LLL pneumonia - complete Augmentin as given . No fluid in lungs so xopenex sent for bronchitis and wheezing Take extra tab of torsemide ( total 3 tab ) for 3 days then can decrease to 2 and 1/2 tab Until next labs . Labs on 03/16 with other labs If worse over weekend bolivar with breathing , SPO2 < 92 constantly and confusion go to ER * Telephone Encounter - LARRY Rogers - 03/10/2023 2:37 PM EDT Dayami from [facility] radiology calling to inform that there were significant findings in the xrayof the chest please review the results documented in this encounter Plan of Treatment Upcoming Encounters Date Type Specialty Care Team Description 06/08/2023 Laboratory Laboratory [facility] [address] [place] [address] 06/15/2023 Laboratory Laboratory [facility] [address] [place] [address] 06/19/2023 Home Visit [facility] [place] [address] [place] [address] 06/22/2023 Laboratory Laboratory Processing [facility] [address] [place] [address] 06/29/2023 Laboratory Laboratory Processing [facility] [address] [place] [address] 07/06/2023 Laboratory Laboratory Processing [facility] [address] [place] [address] 07/06/2023 Home Visit Ej at [facility] Berny DE- [address] [place] [address] 07/13/2023 Laboratory Laboratory Processing [facility] [address] [place] [address] 07/20/2023 Laboratory Laboratory [facility] [address] [place] [address] 07/27/2023 Laboratory Laboratory Processing [facility] [address] [place] [address] 08/03/2023 Laboratory Laboratory Processing [facility] [address] [place] [address] 08/10/2023 Laboratory Laboratory Processing [facility] [address] [place] [address] 08/17/2023 Laboratory Laboratory Processing [facility] [address] [place] [address] 08/24/2023 Laboratory Laboratory [facility] [address] [place] [address] 08/29/2023 Office Visit Urology Kalpesh Funes MD [address] [address] 08/31/2023 Laboratory Laboratory Processing [facility] [address] [place] [address] 09/04/2023 Office Visit Cardiology Willy, HALLIE Retana [address] [place] [address] 09/07/2023 Laboratory Laboratory Processing [facility] [address] [place] [address] 09/14/2023 Laboratory Laboratory Processing [facility] [address] [place] [address] 09/21/2023 Laboratory Laboratory Processing [facility] [address] [place] [address] 09/21/2023 Office Visit Nephrology Nataly Stone PA-C [address] [place] [address] 09/28/2023 Laboratory Laboratory Processing [facility] [address] [place] [address] 10/05/2023 Laboratory Laboratory Processing [facility] [address] [place] [address] 10/12/2023 Laboratory Laboratory Processing [facility] [address] [place] [address] 10/19/2023 Laboratory Laboratory Processing [facility] [address] [place] [address] 11/03/2023 Nurse Only Ancillary Jeronimo, Nurse Annual Wellness Niru [address] [place] [address] Scheduled Procedures Name Priority Associated Diagnoses Date/Ti [...] 023, 03/08/2019, 04/09/2014 CKD PHOS USE SMARTSET 86924 12/27/2023 12/26/2022, 0 06/21/2021 CKD HGB USE SMARTSET 90661 06/01/202406/01, 06/01/2023, 05/25/2023, Additional history exists COLONOSCOPY-EVERY 3 YRS AGES [...] this encounter Medical Devices Implanted Type Area Environmental Control Administrator Device Identifier Shelf Expiration Date Model / Serial / Lot Lens Intraoc 22.5 - [id number] - [id number] Implanted:Qty: 1 on 05/22/2018 by Jasbir Maurer MD at OR [facility] Right: Eye [employer] 11/22/2022 [id number] / [id number] / [id number] Lens Intraoc 21.0 - [id number] - [id number] Implanted:Qty: 1 on 06/05/2018 by Jasbir Maurer MD at OR [facility] Left: Eye [employer] 12/20/2022 [id number] / [id number] / documented as of this encounter Results * (ABNORMAL) BASIC METABOLIC PANEL (03/16/2023 9:08 AM EDT) BUN 27(H) 6 - 20 mg/dL 03/16/2023 11:38 AM EDT [facility] Creatinine 1.7(H) 0.6 - 1.2 mg/dL 03/16/2023 11:38 AM EDT [facility] Estimated Glomerular Filtration Rate 41(L) >=60 mL/min 03/16/2023 11:38 AM EDT [facility]10 Comment:eGFR is calculated b ased on the CKD-EPI 2020 equation Sodium 142 135 - 146 mmol/L 03/16/2023 11:38 AM EDT [facility] Potassium 4.3 3.5 - 5.1 mmol/L 03/16/2023 11:38 AM EDT [facility] Chloride 101 98 - 107 mmol/L 03/16/2023 11:38 AM EDT [facility] CO2 27 22 - 32 mmol/L 03/16/2023 11:38 AM EDT [facility] Anion Gap 14 7 - 15 mmol/L 03/16/2023 11:38 AM EDT [facility]10 Glucose 187(H) 70 - 120 mg/dL 03/16/2023 11:38 AM EDT [facility] Calcium 8.9 8.4 - 10.2 mg/dL 03/16/2023 11:38 AM EDT [facility] Blood Venous blood specimen / Unknown Venipuncture / Unknown 03/16/2023 9:08 AM EDT 03/16/2023 10:34 AM EDT Anel Leyva MD LAB BLOOD ORDERABLES [facility] [place] [facility] [place] [address] documented in this encounter Visit Diagnoses Diagnosis Pneumonia of left lower lobe due to infectious organism- Primary 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
--- OUTSIDE RECORDS SUMMARY | 2023-10-07 03:08 | External Medical Summary ---
Author Name Unknown Address Unknown Organization [id number]:[facility] - [address] [place] [address] Laboratory Report Ordering Provider Test Date Status GUERRERO CHAUHAN 05/11/2023 10:45:00 Final Observation Date Value Abnormality Reference (Units ) Status SYNC LEUKOCYTES IN BLOOD BY AUTOMATED COUNT 05/11/2023 10:45:00 4.13 4.00-10.80 (K/uL) Final Segs 05/11/2023 10:45:00 71.0 40.0-75.0 (%) Final Lymphs % 05/11/2023 10:45:00 22.5 18.0-42.0 (%) Final Monos 05/11/2023 10:45:00 5.8 1.0-11.0 (%) Final Eosinophils 05/11/2023 10:45:00 0.5 0.0-6.0 (%) Final Basos 05/11/2023 10:45:00 0.2 0.0-2.0 (%) Final Absolute Segs 05/11/2023 10:45:00 2.93 1.80-7.70 (K/uL) Final Lymphs, absolute 05/11/2023 10:45:00 0.93 Below low normal 1.00-4.80 (K/ul) Final Monos, Abs 05/11/2023 10:45:00 0.24 0.00-1.10 (K/uL) Final Eos, Abs 05/11/2023 10:45:00 0.02 0.00-0.70 (K/uL) Final Basos, Abs 05/11/2023 10:45:00 0.01 0.00-0.20 (K/uL) Final Performing Location [facility] 0 - [address] [place] [address]
--- OUTSIDE RECORDS SUMMARY | 2023-10-07 03:08 | External Medical Summary ---
Author Name Unknown Address Unknown Organization [id number] [address] [place] [address] Laboratory Report Ordering Provider Test Date Status AVNI LUIS 06/15/2023 08:33:00 Final Observation Date Value Abnormality Reference (Units ) Status Nucleated erythrocytes/100 leukocytes [Ratio] in Blood by Automated count 06/15/2023 08:33:00 Final Performing Location LAB[facility]ATORY [facility] 57-1 0 - [address] [place] [address]
--- OUTSIDE RECORDS SUMMARY | 2023-10-07 03:08 | External Medical Summary ---
Author Name Unknown Address Unknown Organization [id number] [place]-10 - [address] [place] [address] Laboratory Report Ordering Provider Test Date Status ANVI LUIS 06/01/2023 09:22:00 Final Observation Date Value Abnormality Reference (Units ) Status WBC, Total 06/01/2023 09:22:00 4.15 4.00-10.8 0 (K/uL) Final RBC 06/01/2023 09:22:00 3.61 4.50-5.25 (M/uL) Final Hemoglobin 06/01/2023 09:22:00 11.6 Below low normal 14 .0-16.8 (g/dL) Final HCT 06/01/2023 09:22:00 35.5 Below low normal 40. 0-48.4 (%) Final MCV 06/01/2023 09:22:00 98.3 82.0-99.5 (fL) Final MCH 06/01/2023 09:22:00 32.1 27.0-34.0 (pg) Final MCHC 06/01/2023 09:22:00 32.7 32.0-36.0 (g/dL) Final RDW 06/01/2023 09:22:00 15.7 11.5-15.5 (%) Final Platelets 06/01/2023 09:22:00 127 Below low normal 140 -400 (K/uL) Final MPV 06/01/2023 09:22:00 9.7 6.6-11.1 ( fL) Final Performing Location [facility] [facility] [facility] 0 - [address] [place] [address]
--- OUTSIDE RECORDS SUMMARY | 2023-10-07 03:08 | External Medical Summary ---
Author Name Unknown Address Unknown Organization [id number]:[facility] [place] - [address] [place] [address] [place] [address] Laboratory Report Ordering Provider Test Date Status AVNI LUIS 05/25/2023 09:36:00 Final Observation Date Value Abnormality Reference (Units ) Status Ferritin 05/25/2023 09:36:00 105 30-400 (ng /mL) Final Performing Location [facility] [place] - [address] [place] [address]
--- OUTSIDE RECORDS SUMMARY | 2023-10-07 03:08 | External Medical Summary ---
Author Name Unknown Address Unknown Organization K01:[facility] [place] [address] [address] Laboratory Report Ordering Provider Test Date Status AVNI LUIS 06/15/2023 08:33:00 Final Observation Date Value Abnormality Reference (Units ) Status Ferritin 06/15/2023 08:33:00 208 30-400 (ng /mL) Final Performing Location [facility] [place] [address] [place] [address]
--- OUTSIDE RECORDS SUMMARY | 2023-10-07 03:08 | External Medical Summary ---
Author Name Unknown Address Unknown Organization [id number] - [address] [place] [address] Laboratory Report Ordering Provider Test Date Status AVNI LUIS 06/01/2023 09:22:00 Final Observation Date Value Abnormality Reference (Units ) Status Nucleated erythrocytes/100 leukocytes [Ratio] in Blood by Automated count 06/01/2023 09:22:00 Final Performing [facility] 0 - [address] [place] [address]
--- OUTSIDE RECORDS SUMMARY | 2023-10-07 03:08 | External Medical Summary ---
Author Name Unknown Address Unknown Organization K0G:[facility] [place] 57-10 - [address] [place] [address] Laboratory Report Ordering Provider Test Date Status AVNI LUIS 06/15/2023 08:33:00 Final Observation Date Value Abnormality Reference (Units ) Status SYNC LEUKOCYTES IN BLOOD BY AUTOMATED COUNT 06/15/2023 08:33:00 3.77 Below low normal 4.00-10.80 (K/uL) Final Segs 06/15/2023 08:33:00 64.9 40.0-75.0 (%) Final Lymphs % 06/15/2023 08:33:00 24.7 18.0-42.0 (%) Final Monos 06/15/2023 08:33:00 8.8 1.0-11.0 (%) Final Eosinophils 06/15/2023 08:33:00 1.1 0.0-6.0 (%) Final Basos 06/15/2023 08:33:00 0.5 0.0-2.0 (%) Final Absolute Segs 06/15/2023 08:33:00 2.45 1.80-7.70 (K/uL) Final Lymphs, absolute 06/15/2023 08:33:00 0.93 Below low normal 1.00-4.80 (K/ul) Final Monos, Abs 06/15/2023 08:33:00 0.33 0.00-1.10 (K/uL) Final Eos, Abs 06/15/2023 08:33:00 0.04 0.00-0.70 (K/uL) Final Basos, Abs 06/15/2023 08:33:00 0.02 0.00-0.20 (K/uL) Final Performing Location [facility] [place] 57-1 0 - [address] [place] [address]
--- OUTSIDE RECORDS SUMMARY | 2023-10-07 03:08 | External Medical Summary ---
Author Name Unknown Address Unknown Organization K01:[facility]ORY [facility] [place] - [address] [place] [address] Laboratory Report Ordering Provider Test Date Status GUERRERO CHAUHAN 05/18/2023 10:51:00 Final Observation Date Value Abnormality Reference (Units ) Status Ferritin 05/18/2023 10:51:00 109 30-400 (ng /mL) Final Performing Location [facility] [place] - [address] [place] [address]
--- OUTSIDE RECORDS SUMMARY | 2023-10-07 03:08 | External Medical Summary ---
Author Name Unknown Address Unknown Organization K01:[facility] [place] - [address] [place] [address] Laboratory Report Ordering Provider Test Date Status AVNI LUIS 06/01/2023 09:22:00 Final Observation Date Value Abnormality Reference (Units ) Status Ferritin 06/01/2023 09:22:00 458 Above high normal 30 -400 (ng/mL) Final Performing Location [facility] [place] - [address] [place] [place] [address]
--- OUTSIDE RECORDS SUMMARY | 2023-10-07 03:08 | External Medical Summary | Summary of Care ---
Author Name Unknown Organization [facility] Address [address] [place] [address] Phone [phone] Care Team Providers Care Metal Tank Erector Name Role Phone Michael Hinton MD Primary Care Provider [phone] Reason for Visit * Reason Onset Date Comments Information 05/22/2023 Encounter Details Date Type Department Care Team Description 05/22/2023 Telephone [facility], [place] [address] [place] [address] [id number] Services, Scheduling [address] [place] [address] Information (/) Allergies Active Allergy Reactions Severity Noted Date Comments Fabiano Inhibitors Cough 06/09/2017 Carbidopa W-Levodopa 03/17/2021 Constipation Nsaids Rash 05/17/2018 Contraindicated per correspondent documented as of this encounter (statuses as of 05/22/2023) Medications Medication Sig Dispensed Refills Start Date [...] mitral valve regurgitation,Krista nary artery disease involving zuni coronary artery of zuni heart without angina pectoris,Paroxysma l atrial fibrillation (HCC),Stage 3b chronic kidney disease (HCC) Take 1 Tablet by mouth in the morning. 180 Tablet 3 05/02/2023 Active DIURETIC TITRATION PLAN If no improvement on day 3, contact heart failure managing provider. 1 Each 0 05/02/2023 Active documented as of this encounter (statuses as of 05/22/2023) Active Problems Problem Noted Date History of [...] Last Assessment & Plan: Followed closely by [facility] hematology. No identified cause of [...] both knees Coronary artery disease invo lving zuni coronary artery of zuni heart without angina pectoris 03/21/2018 Last Assessment [...] as of this encounter (statuses as of 05/22/2023) Resolved Problems Problem Noted Date Resolved Date [...] as of this encounter (statuses as of 05/22/2023) Immunizations Name Administration Dates Next Due COVID-19 mRNA, LNP-s, No Pre serve, 2-Dose Series (Supply Vision) 11/03/2021,12/19/2020,11/28/2020 Covid-19 Ad26, Single Dose (Soy/J&J) 12/19/2020,11/28/2020 [...] * Telephone Encounter - LARRY Velasquez - 05/22/2023 10:22 AM EDT Inbound call from spouse confirming 05/23 rncm appt for 10am documented in this encounter Plan of Treatment Upcoming Encounters Date Type Specialty Care Team Description 05/23/2023 Home Visit [facility] Peggy De RN [address] [place] [address] 05/25/2023 Laboratory [facility] [address] [place] [address] 06/01/2023 Laboratory Laboratory Processing [facility] [address] [place] [address] 06/08/2023 Laboratory Laboratory Processing [facility] [address] [place] [address] 06/15/2023 Laboratory Laboratory Processing G[facility], [facility] [address] [place] [address] 06/22/2023 Laboratory Laboratory Processing [facility], [facility] [address] [place] [address] 06/29/2023 Laboratory Laboratory Processing [facility] [address] [place] [address] 07/06/2023 Laboratory Laboratory Processing [facility] [address] [place] [address] 07/06/2023 Home Visit [facility] Berny Power PA-C [address] [place] [address] 07/13/2023 Laboratory Laboratory Processing [facility] [address] [place] [address] 07/20/2023 Laboratory Laboratory Processing [facility] [address] [place] [address] 07/27/2023 Laboratory Laboratory Processing [facility] [address] [place] [address] 08/03/2023 Laboratory Laboratory Processing [facility] [address] [place] [address] 08/10/2023 Laboratory Laboratory Processing [facility] [address] [place] [address] 08/17/2023 Laboratory Laboratory Processing [facility] [address] [place] [address] 08/24/2023 Laboratory Laboratory Processing [facility] [address] [place] [address] 08/29/2023 Office Visit Urology Kalpesh Funes MD [address] [address] 08/31/2023 Laboratory Laboratory Processing [facility] [address] [place] [address] 09/04/2023 Office Visit Cardiology Leah Aguilera CRNP [address] [place] [address] 09/07/2023 Laboratory Laboratory Processing [facility] [address] [place] [address] 09/14/2023 Laboratory Laboratory Processing [facility] [address] [place] [address] 09/21/2023 Laboratory Laboratory Processing [facility] Draw [address] [place] [address] 09/21/2023 Office Visit Nephrology [place], Nataly Christine PA-C [address] [place] [address] 09/28/2023 Laboratory Laboratory Processing [facility] [address] [place] [address] 10/05/2023 Laboratory Laboratory Processing [facility], [facility] [address] [place] [address] 10/12/2023 Laboratory Laboratory Processing [facility] [address] [place] [address] 10/19/2023 Laboratory Laboratory Processing [facility] [address] [place] [address] 11/03/2023 Nurse Only Ancillary Decker, Nurse Annual Wellness Niru [address] [place] [address] Scheduled Procedures Name Priority Associated Diagnoses Date/Ti me COLONOSCOPY FLEXIBLE PROXIMAL DIAGNOSTIC Recall History of colon polyps Health Maintenance Due Date Last Done Comments Hepatitis C Screening 1963 DIABETES-FOOT EXAM 03/27/2021 03/27/2020, 08/23/2018 COVID-19 Vaccine (5 - Pfizer series) 12/29/2021 11/03/2021, 12/19/2020, 12/19/2020, Additional history exists Influenza Vaccine (FLU shot) (#1) 2023 07/13/2022, 07/23/2021, 07/07/2020, Additional history exists HbA1c 10/12/2023 04/12/2023, 03/03/2023, 03/22/2022, Additional history exists DIABETES-EYE EXAM 11/01/2023 11/01/2022, , 08/04/2011, Additional history exists Depression Screening, Annual for Pts 12 and Over 11/02/2023 11/02/2022 GFR 11/04/2023 05/04/2023, 03/23, 03/16/2023, Additional history exists Albumin/Creatinine Ratio 12/27/2023 023, 03/08/2019, 04/09/2014 CKD PHOS USE SMARTSET 47405 12/27/2023 12/26/2022, 0 06/21/2021 CKD HGB USE SMARTSET 03343 05/18/202405/18, 05/18/2023, 05/11/2023, Additional history exists COLONOSCOPY-EVERY [...] this encounter Medical Devices Implanted Type Area Round Kiln Drawer Device Identifier Shelf Expiration Date Model / Serial / Lot Lens Intraoc 22.5 - [id number] - [id number] Implanted:Qty: 1 on 05/22/2018 by Jasbir Maurer MD at OR [facility] Right: Eye BAUSCH & LOMB 11/22/2022 [id number] / [id number] / [id number] Lens Intraoc 21.0 - [id number] - [id number] Implanted:Qty: 1 on 06/05/2018 by Jasbir Maurer MD at OR [facility] Left: Eye BAUSCH & LOMB 12/20/2022 [id number] / [id number] / documented as of this encounter Advance [...] Care Power of Attor mayela Care Teams Metal Tank Erector Relationship Specialty Start Date End Date Michael Hinton MD 132 [facility] [place] [address] PCP - General Family Medicine 08/07/17 documented as of this encounter
--- OUTSIDE RECORDS SUMMARY | 2023-10-07 03:08 | External Medical Summary | Summary of Care ---
Author Name Unknown Organization [facility] Address [address] [place] [facility] [place] [place] [address] Phone [phone] Care Team Providers Care Curator Of Education Name Role Phone Michael Hinton MD Primary Care Provider [phone] Reason for Visit * Reason Onset Date Comments [facility]: Maintenance 06/12/2023 Encounter Details Date Type Department Care Team Description 06/12/2023 Telephone [facility] 132 [facility] [place] [address] [facility], Nurse [facility] [address] [place] [address] [facility]: Maintenance Allergies Active Allergy Reactions Severity Noted Date Comments Fabiano Inhibitors Cough 06/09/2017 Carbidopa W-Levodopa 03/17/2021 Constipation Nsaids Rash 05/17/2018 Contraindicated per film producer documented as of this encounter (statuses as of 06/12/2023) Medications Medication Sig Dispensed Refills Start Date [...] mitral valve regurgitation,Krista nary artery disease involving coeur d'alene coronary artery of coe[place]'alene heart without angina pectoris,Paroxysma l atrial fibrillation (HCC),Stage 3b chronic kidney disease (HCC) Take 1 Tablet by mouth in the morning. 180 Tablet 3 05/02/2023 Active DIURETIC TITRATION PLAN If no improvement on day 3, contact heart failure managing provider. 1 Each 0 05/02/2023 Active documented as of this encounter (statuses as of 06/12/2023) Active Problems Problem Noted Date History of [...] Last Assessment & Plan: Followed closely by [facility] hematology. 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 She states patient did not have weekly labs last due to conflict with appointment and was to be rescheduled today (Monday). Chart reviewed, mobile lab appt cancelled today, next appt scheduled for . 06/15, unaware of appt cx. Made aware of next mobile lab appt. on 06/15. She states she will just wait until . Mobile lab number provided to Ashley for any questions/concerns. Denies any acute issues today. Advised to call back [facility] with any issues or concerns, verbalized understanding. Routing to care team for I Taryn Salcedo RN, BSN [facility] subway train operator Navigator [phone] documented in this encounter Plan of Treatment Upcoming Encounters Date Type Specialty Care Team Description 06/15/2023 Laboratory Laboratory Processing [facility] [address] [place] [address] 06/19/2023 Home Visit [facility] Heavenly Tavarez, RN [address] [place] [address] 06/22/2023 Laboratory Laboratory Processing [facility] [address] [place] [address] 06/29/2023 Laboratory Laboratory Processing [facility] [address] [place] [address] 07/06/2023 Laboratory Laboratory Processing [facility] [address] [place] [address] 07/06/2023 Home Visit [facility] [place] Berny Power PA-Davey [address] [place] [address] 07/13/2023 Laboratory Laboratory Processing [facility] [address] [place] [address] 07/20/2023 Laboratory Laboratory Processing [facility] [address] [place] [address] 07/27/2023 Laboratory Laboratory Processing [facility] [address] [place] [address] 08/03/2023 Laboratory Laboratory Processing [facility] [address] [place] [address] 08/10/2023 Laboratory Laboratory Processing [facility] [address] [place] [address] 08/17/2023 Laboratory Laboratory Processing [facility] [address] [place] [address] 08/24/2023 Laboratory Laboratory Processing [facility] [address] [place] [address] 08/29/2023 Office Visit Urology Kalpesh Funes MD 27 [facility] [address] [place] [address] 08/31/2023 Laboratory Laboratory Processing [facility] [address] [place] [address] 09/04/2023 Office Visit Cardiology Leah Aguilera CRNP [address] [place] [address] 09/07/2023 Laboratory Laboratory Processing [facility], [facility] Draw [address] [place] [address] 09/14/2023 Laboratory Laboratory Processing [facility], [facility] [address] [place] [address] 09/21/2023 Laboratory Laboratory Processing [facility], [facility] [address] [place] [address] 09/21/2023 Office Visit Nephrology Nataly Stone PA-C [address] [place] [address] 09/28/2023 Laboratory Laboratory Processing [facility], [facility] [address] [place] [address] 10/05/2023 Laboratory Laboratory Processing [facility], [facility] [address] [place] [address] 10/12/2023 Laboratory Laboratory Processing [facility], [facility] Draw [address] [place] [address] 10/19/2023 Laboratory Laboratory Processing [facility], [facility] Draw [address] [place] [address] 11/03/2023 Nurse Only Ancillary Jeronimo Nurse Annual Well[facility] Niru [address] [place] [address] Scheduled Procedures Name Priority Associated Diagnoses Date/Ti [...] 023, 03/08/2019, 04/09/2014 CKD PHOS USE SMARTSET 67941 12/27/2023 12/26/2022, 0 06/21/2021 CKD HGB USE SMARTSET 74029 06/01/202406/01, 06/01/2023, 05/25/2023, Additional history exists COLONOSCOPY-EVERY [...] this encounter Medical Devices Implanted Type Area Content Management Consultant Device Identifier Shelf Expiration Date Model / Serial / Lot Lens Intraoc 22.5 - [id number] - [id number] Implanted:Qty: 1 on 05/22/2018 by Jasbir Maurer MD at OR [facility] Right: Eye BAUSCH & LOMB 11/22/2022 [id number] / [id number] / [id number] Lens Intraoc 21.0 - [id number] - [id number] Implanted:Qty: 1 on 06/05/2018 by Jasbir Maurer MD at OR [facility] Left: Eye BAUSCH & LOMB 12/20/2022 [id number] / [id number] / documented as of this encounter Advance [...] Care Power of Attor mayela Care Teams Curator Of Education Relationship Specialty Start Date End Date Michael Hinton MD 132 [facility] [place] [address] PCP - General Family Medicine 08/07/17 documented as of this encounter
--- OUTSIDE RECORDS SUMMARY | 2023-10-07 03:08 | External Medical Summary ---
Author Name Unknown Address Unknown Organization [facility] [place] [address] Laboratory Report Ordering Provider Test Date Status GUERRERO CHAUHAN 05/11/2023 10:45:00 Final Observation Date Value Abnormality Reference (Units ) Status WBC, Total 05/11/2023 10:45:00 4.13 4.00-10.8 0 (K/uL) Final RBC 05/11/2023 10:45:00 3.52 4.50-5.25 (M/uL) Final Hemoglobin 05/11/2023 10:45:00 11.3 Below low normal 14 .0-16.8 (g/dL) Final HCT 05/11/2023 10:45:00 35.0 Below low normal 40. 0-48.4 (%) Final MCV 05/11/2023 10:45:00 99.4 82.0-99.5 (fL) Final MCH 05/11/2023 10:45:00 32.1 27.0-34.0 (pg) Final MCHC 05/11/2023 10:45:00 32.3 32.0-36.0 (g/dL) Final RDW 05/11/2023 10:45:00 15.9 11.5-15.5 (%) Final Platelets 05/11/2023 10:45:00 123 Below low normal 140 -400 (K/uL) Final MPV 05/11/2023 10:45:00 9.3 6.6-11.1 ( fL) Final Performing Location [facility] [place] 57-[address] 0 - [address] [place] [address]
--- OUTSIDE RECORDS SUMMARY | 2023-10-07 03:08 | External Medical Summary ---
Author Name Unknown Address Unknown Organization [facility] [address] - [address] [place] [address] Laboratory Report Ordering Provider Test Date Status AVNI LUIS 06/01/2023 09:22:00 Final Observation Date Value Abnormality Reference (Units ) Status SYNC LEUKOCYTES IN BLOOD BY AUTOMATED COUNT 06/01/2023 09:22:00 4.15 4.00-10.80 (K/uL) Final Segs 06/01/2023 09:22:00 67.3 40.0-75.0 (%) Final Lymphs % 06/01/2023 09:22:00 22.4 18.0-42.0 (%) Final Monos 06/01/2023 09:22:00 8.9 1.0-11.0 (%) Final Eosinophils 06/01/2023 09:22:00 1.2 0.0-6.0 (%) Final Basos 06/01/2023 09:22:00 0.2 0.0-2.0 (%) Final Absolute Segs 06/01/2023 09:22:00 2.79 1.80-7.70 (K/uL) Final Lymphs, absolute 06/01/2023 09:22:00 0.93 Below low normal 1.00-4.80 (K/ul) Final Monos, Abs 06/01/2023 09:22:00 0.37 0.00-1.10 (K/uL) Final Eos, Abs 06/01/2023 09:22:00 0.05 0.00-0.70 (K/uL) Final Basos, Abs 06/01/2023 09:22:00 0.01 0.00-0.20 (K/uL) Final Performing Location [facility] [address] - [address] [place] [address]
--- OUTSIDE RECORDS SUMMARY | 2023-10-07 03:08 | External Medical Summary ---
Author Name Unknown Address Unknown Organization [facility] [place] [address] - [address] [place] [address] Laboratory Report Ordering Provider Test Date Status GUERRERO CHAUHAN 05/18/2023 10:51:00 Final Observation Date Value Abnormality Reference (Units ) Status SYNC LEUKOCYTES IN BLOOD BY AUTOMATED COUNT 05/18/2023 10:51:00 4.17 4.00-10.80 (K/uL) Final Segs 05/18/2023 10:51:00 69.5 40.0-75.0 (%) Final Lymphs % 05/18/2023 10:51:00 22.1 18.0-42.0 (%) Final Monos 05/18/2023 10:51:00 7.7 1.0-11.0 (%) Final Eosinophils 05/18/2023 10:51:00 0.5 0.0-6.0 (%) Final Basos 05/18/2023 10:51:00 0.2 0.0-2.0 (%) Final Absolute Segs 05/18/2023 10:51:00 2.90 1.80-7.70 (K/uL) Final Lymphs, absolute 05/18/2023 10:51:00 0.92 Below low normal 1.00-4.80 (K/ul) Final Monos, Abs 05/18/2023 10:51:00 0.32 0.00-1.10 (K/uL) Final Eos, Abs 05/18/2023 10:51:00 0.02 0.00-0.70 (K/uL) Final Basos, Abs 05/18/2023 10:51:00 0.01 0.00-0.20 (K/uL) Final [facility] - [address] [place] [address]
--- OUTSIDE RECORDS SUMMARY | 2023-10-07 03:08 | External Medical Summary | Summary of Care ---
Author Name Unknown Organization [facility] Address [address] [place] [address] Phone [phone] Care Team Providers Care Hospital Monitor Name Role Phone Michael Hinton MD Primary Care Provider [phone] Reason for Visit * Reason Onset Date Comments Fax 02/17/2023 Encounter Details Date Type Department Care Team Description 02/17/2023 Telephone Family Practice [facility] [address] [facility] [place] [id number] Michael Hinton MD [address] [facility] [place] [address] Fax Allergies Active Allergy Reactions Severity Noted Date Comments Fabiano Inhibitors Cough 06/09/2017 Carbidopa W-Levodopa 03/17/2021 Constipation Nsaids Rash 05/17/2018 Contraindicated per tree worker documented as of this encounter (statuses as of 05/30/2023) Medications Medication Sig Dispensed Refills Start Date [...] by mouth in the morning. 0 Active documented as of this encounter (statuses as of 05/30/2023) Active Problems Problem Noted Date History of [...] Last Assessment & Plan: Followed closely by [facility] hematology. No identified cause of [...] both knees Coronary artery disease invo lving habematolel coronary artery of habematolel heart without angina pectoris 03/21/2018 Last Assessment [...] as of this encounter (statuses as of 05/30/2023) Resolved Problems Problem Noted Date Resolved Date [...] scanned document from 11/13/[address] bains, [facility]. 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 HTN, goal below 150/90 08/09/2002 10/04/201 8 Other psoriasis 08/09/2002 10/19/2015 Screening for prostate cancer 08/09/2002 documented as of this encounter (statuses as of 05/30/2023) Immunizations Name Administration Dates Next Due COVID-19 mRNA, LNP-s, No Pre serve, 2-Dose Series (Pirate3D) 11/03/2021,12/19/2020,11/28/2020 Covid-19 Ad26, Single Dose ([employer]/J&J) 12/19/2020,11/28/2020 DTaP - Dipth/Tet/Acell Pertussis 10/24/2019 Pneumococcal [...] encounter Miscellaneous Notes * Telephone Encounter - Petra Poon LPN - 02/17/2023 5:22 PM EDT Faxed POC as requested * Telephone Encounter - LARRY Stuart - 02/17/2023 2:20 PM EDT CReceived a call asking if fax was received by office. Name/Company sending fax: [employer] What fax is pertaining to: Plan of care Date(s) they sent request: 02/13, 12/18/ and 02/17 Verified fax number they are sending to is correct (Y or N): yes Callback Number for the clinic to call to verified if fax was received: PH: [phone] documented in this encounter Plan of Treatment Upcoming Encounters Date Type Specialty Care Team Description 06/01/2023 Laboratory [facility] [address] [place] [address] 06/08/2023 Laboratory Laboratory Processing [facility] [address] [place] [address] 06/15/2023 Laboratory Laboratory Processing [facility] [address] [place] [address] 06/19/2023 Home Visit [facility] [place] Heavenly Tavarez RN [address] [place] [address] 06/22/2023 Laboratory Laboratory Processing [facility] [address] [place] [address] 06/29/2023 Laboratory Laboratory Processing [facility] [address] [place] [address] 07/06/2023 Laboratory Laboratory Processing [facility] [address] [place] [address] 07/06/2023 Home Visit [facility] [place] Yoshipalo pintoBerny PA-Davey [address] [place] [address] 07/13/2023 Laboratory Laboratory Processing [facility] [address] [place] [address] 07/20/2023 Laboratory Laboratory Processing [facility] [address] [place] [address] 07/27/2023 Laboratory Laboratory Processing [facility] [address] [place] [address] 08/03/2023 Laboratory Laboratory Processing [facility] [address] [place] [address] 08/10/2023 Laboratory Laboratory Processing [facility] [address] [place] [address] 08/17/2023 Laboratory Laboratory Processing [facility] [address] [place] [address] 08/24/2023 Laboratory Laboratory Processing [facility] [address] [place] [address] 08/29/2023 Office Visit Urology Kalpesh Funes MD [address] [address] 08/31/2023 Laboratory Laboratory Processing [facility] [address] [place] [address] 09/04/2023 Office Visit Cardiology Willy, HALLIE Retana [address] [place] [address] 09/07/2023 Laboratory Laboratory Processing [facility] [address] [place] [address] 09/14/2023 Laboratory Laboratory Processing [facility] [address] [place] [address] 09/21/2023 Laboratory Laboratory Processing [facility] [address] [place] [address] 09/21/2023 Office Visit Nephrology Nataly Stone PA-C [address] [place] [address] 09/28/2023 Laboratory Laboratory Processing [facility], [facility] Mobile Home Draw [address] [place] [address] 10/05/2023 Laboratory Laboratory Processing [facility], [facility] Mobile Home Draw [address] [place] [address] 10/12/2023 Laboratory Laboratory Processing [facility], [facility] Mobile Home Draw [address] [place] [address] 10/19/2023 Laboratory Laboratory Processing [facility], [facility] Mobile Home Draw [address] [place] [address] 11/03/2023 Nurse Only Ancillary Nurse Jeronimo Annual Wellness Niru [address] [place] [address] Scheduled Procedures Name Priority Associated Diagnoses Date/Ti [...] 023, 03/08/2019, 04/09/2014 CKD PHOS USE SMARTSET 31992 12/27/2023 12/26/2022, 0 06/21/2021 CKD HGB USE SMARTSET 27189 05/25/202405/25, 05/25/2023, 05/18/2023, Additional history exists COLONOSCOPY-EVERY 3 YRS AGES [...] this encounter Medical Devices Implanted Type Area Work And Family Life Consultant Device Identifier Shelf Expiration Date Model / Serial / Lot Lens Intraoc 22.5 - [id number] - [id number] Implanted:Qty: 1 on 05/22/2018 by Jasbir Maurer MD at OR [facility] Right: Eye [employer]CH [employer] LOMB 11/22/2022 [id number] / [id number] / [id number] Lens Intraoc 21.0 - [id number] - [id number] Implanted:Qty: 1 on 06/05/2018 by Jasbir Maurer MD at OR [facility] Left: Eye BAUSCH & LOMB 12/20/2022 [id number] / [id number] / documented as of this encounter Advance [...] Care Power of Attor mayela Care Teams Hospital Monitor Relationship Specialty Start Date End Date Michael Hinton MD [address] [place] [address] PCP - General Family Medicine 08/07/17 documented as of this encounter
--- OUTSIDE RECORDS SUMMARY | 2023-10-07 03:08 | External Medical Summary ---
Author Name Unknown Address Unknown Organization K0G:[facility] - [address] [place] [address] Laboratory Report Ordering Provider Test Date Status GUERRERO CHAUHAN 05/25/2023 09:36:00 Final Observation Date Value Abnormality Reference (Units ) Status SYNC LEUKOCYTES IN BLOOD BY AUTOMATED COUNT 05/25/2023 09:36:00 4.48 4.00-10.80 (K/uL) Final Segs 05/25/2023 09:36:00 67.8 40.0-75.0 (%) Final Lymphs % 05/25/2023 09:36:00 21.7 18.0-42.0 (%) Final Monos 05/25/2023 09:36:00 9.4 1.0-11.0 (%) Final Eosinophils 05/25/2023 09:36:00 0.7 0.0-6.0 (%) Final Basos 05/25/2023 09:36:00 0.4 0.0-2.0 (%) Final Absolute Segs 05/25/2023 09:36:00 3.04 1.80-7.70 (K/uL) Final Lymphs, absolute 05/25/2023 09:36:00 0.97 Below low normal 1.00-4.80 (K/ul) Final Monos, Abs 05/25/2023 09:36:00 0.42 0.00-1.10 (K/uL) Final Eos, Abs 05/25/2023 09:36:00 0.03 0.00-0.70 (K/uL) Final Basos, Abs 05/25/2023 09:36:00 0.02 0.00-0.20 (K/uL) Final Performing Location [facility] 0 - [address] [place] [address]
--- OUTSIDE RECORDS SUMMARY | 2023-10-07 03:09 | External Medical Summary ---
Author Name Unknown Address Unknown Organization [id number] [address] [place] [address] Laboratory Report Ordering Provider Test Date Status GUERRERO CHAUHAN 05/04/2023 10:59:00 Final Observation Date Value Abnormality Reference (Units ) Status Nucleated erythrocytes/100 leukocytes [Ratio] in Blood by Automated count 05/04/2023 10:59:00 Final Performing Location [facility] 0 - [address] [place] [address]
--- OUTSIDE RECORDS SUMMARY | 2023-10-07 03:09 | External Medical Summary | Summary of Care ---
Author Name Unknown Organization [facility] Address [address] [place] [address] Phone [phone] Care Team Providers Care Auxiliary Powerplant Operator Name Role Phone Michael Hinton MD Primary Care Provider [phone] Reason for Visit * Reason Onset Date Comments [facility]: Maintenance 05/04/2023 Encounter Details Date Type Department Care Team Description 05/04/2023 Scheduled Telephone [facility], [facility] [address] [place] [address] Coordinator, [facility] [address] [place] [address] Allergies Active Allergy Reactions Severity Noted Date Comments Fabiano Inhibitors Cough 06/09/2017 Carbidopa W-Levodopa 03/17/2021 Constipation Nsaids Rash 05/17/2018 Contraindicated per can worker documented as of this encounter (statuses as of 05/04/2023) Medications Medication Sig Dispensed Refills Start Date [...] mitral valve regurgitation,Krista nary artery disease involving sitka coronary artery of sitka heart without angina pectoris,Paroxysma l atrial fibrillation (HCC),Stage 3b chronic kidney disease (HCC) Take 1 Tablet by mouth in the morning. 180 Tablet 3 05/02/2023 Active DIURETIC TITRATION PLAN If no improvement on day 3, contact heart failure managing provider. 1 Each 0 05/02/2023 Active documented as of this encounter (statuses as of 05/04/2023) Active Problems Problem Noted Date History of [...] Last Assessment & Plan: Followed closely by [facility] hematology. 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 03/21/2018 Last Assessment [...] as of this encounter (statuses as of 05/04/2023) Resolved Problems Problem Noted Date Resolved Date [...] as of this encounter (statuses as of 05/04/2023) Immunizations Name Administration Dates Next Due COVID-19 mRNA, LNP-s, No Pre serve, 2-Dose Series ([employer]) 11/03/2021,12/19/2020,11/28/2020 Covid-19 Ad26, Single Dose (Soy/J&J) 12/19/2020,11/28/2020 [...] Influenza, Split, I IV3, With Preserve, Inj 08/23/2016,07/03/2015,07/14/2014,06/23,07/13/2012,07/15/2011,07/27/20,07/02/2009,09/03/2008,08/28/2007,1 10/28/2005 07/06/2014 TD, Preservative Free 05/27/1997 TDAP [...] encounter Miscellaneous Notes * Telephone Encounter - Vicky Garcia RN - 05/04/2023 9:27 AM EDT Images from the original note were not included. [facility] Telephonic Nurse Follow-Up Call [facility] Subprogram: Primary Care at Home Follow Up Call Type: 24 hour follow up Acute issue requiring follow-up call: Heart Failure Exacerbation Objective: 05/02/2023 11:47 AM 04/17/2023 3:30 PM 04/12/2023 11:51 AM 03/28/2023 11:00 AM 03/22/2023 3:09 PM VITALS ACROSS ENCOUNTERS BP 132/46 122/62 132/56 130/60 Pulse 60 72 64 Weight 81.2 kg 83.1 kg BMI 29.79 kg/m2 30.49 kg/m2 Lab Results Component Value Date PROTEIN - [facility] 5.8 (L) 03/09/2023 WBC AUTO - [facility] 3.53 (L) 04/27/2023 Lab Results Component Value Date WBC AUTO - [facility] 3.53 (L) 04/27/2023 HGB - [facility] 10.5 (L) 04/27/2023 PLATELET AUTO - [facility] 144 04/27/2023 Lab Results Component Value Date SODIUM - [facility] 142 04/04/2023 POTASSIUM - [facility] 4.5 04/04/2023 CO2 - [facility] 20 (L) 04/04/2023 CREATININE - [facility] 1.8 (H) 04/04/2023 ESTIMATED GLOMERULAR FILTRATION RATE - [facility] 37 (L) 04/04/2023 ALBUMIN - [facility] 4.1 03/09/2023 AST - [facility] 24 03/09/2023 ALT - [facility] 22 03/09/2023 ALKALINE PHOSPHATASE - [facility] 104 03/09/2023 No results found for: PRO BNP, LEFT VENTRICULAR EJECTION FRACTION Remote Patient Monitoring: AMC Scale: see below Oxygen Needs: NO supplemental oxygen needs identified DME Needs: NO DME needs identified Medications: Current DTP: Double dose of Torsemide for 3 days Subjective: Condition Status: UTC< message left for callback Current Concerns: UTC< message left for callback Disposition: Follow up call scheduled for tomorrow with CATALYST SUPERVISOR Telemetry Rn Future Visits Scheduled: Future Appointments-next 60 days Date/Time Provider Specialty Dept Phone 05/04/2023 4:00 PM [facility] Giuliano Telemetry Rn [facility] [phone] 05/10/2023 3:30 PM (Arrive by 3:15 PM) [facility]IE [facility] Cardiology [phone] 05/11/2023 8:10 AM [facility] Processing [phone] 05/18/2023 8:10 AM [facility] [phone] 05/23/2023 12:30 PM Mayuri Grant RN [facility] [phone] 05/25/2023 8:10 AM [facility] [phone] 06/01/2023 8:10 AM [facility] [phone] 06/08/2023 8:10 AM [facility] [phone] 06/15/2023 8:10 AM [facility] [phone] 06/22/2023 8:10 AM [facility] [phone] 06/29/2023 8:10 AM [facility] [phone] 07/06/2023 8:10 AM [facility] [phone] 07/06/2023 2:30 PM Berny Power PA-C [facility] [phone] 07/13/2023 8:00 AM [facility] [phone] 07/20/2023 8:00 AM [facility] [phone] 07/27/2023 8:00 AM [facility] [phone] 08/03/2023 8:00 AM [facility] [phone] 08/10/2023 8:00 AM [facility] [phone] 08/17/2023 8:00 AM [facility] [phone] 08/24/2023 8:00 AM [facility] [phone] 08/29/2023 3:15 PM Kalpesh Funes MD Urology [phone] 08/31/2023 8:00 AM [facility] [phone] 09/07/2023 8:00 AM [facility] [phone] 09/14/2023 8:00 AM [facility] [phone] 09/21/2023 8:00 AM [facility] [phone] 09/21/2023 1:30 PM (Arrive by 1:15 PM) Nataly Stone PA-C Nephrology [phone] 09/28/2023 8:00 AM [facility] [phone] 10/05/2023 8:00 AM [facility] [phone] 10/12/2023 8:00 AM [facility] [phone] 10/19/2023 8:00 AM [facility] [phone] 11/03/2023 2:00 PM Nurse Annual Wellness [facility] Ancillary [phone] Vicky Garcia, RN documented in this encounter Plan of Treatment Upcoming Encounters Date Type Specialty Care Team Description 05/10/2023 Office Visit Cardiology Willy, HALLIE Retana [address] [place] [address] 05/11/2023 Laboratory Laboratory Processing [facility] [address] [place] [address] 05/18/2023 Laboratory Laboratory Processing [facility] [address] [place] [address] 05/23/2023 Home Visit [facility] Mayuri Grant RN [address] [place] [address] 05/25/2023 Laboratory Laboratory Processing [facility] [address] [place] [address] 06/01/2023 Laboratory Laboratory Processing [facility] [address] [place] [address] 06/08/2023 Laboratory Laboratory Processing [facility] [address] [place] [address] 06/15/2023 Laboratory Laboratory Processing [facility] [address] [place] [address] 06/22/2023 Laboratory Laboratory Processing [facility] [address] [place] [address] 06/29/2023 Laboratory Laboratory Processing [facility] [address] [place] [address] 07/06/2023 Laboratory Laboratory Processing [facility] [address] [place] [address] 07/06/2023 Home Visit [facility] Berny Power PA-C [address] [place] [address] 07/13/2023 Laboratory Laboratory Processing [facility] [address] [place] [address] 07/20/2023 Laboratory Laboratory Processing [facility] [address] [place] [address] 07/27/2023 Laboratory Laboratory Processing [facility] [address] [place] [address] 08/03/2023 Laboratory Laboratory Processing [facility] [address] [place] [address] 08/10/2023 Laboratory Laboratory Processing [facility] [address] [place] [address] 08/17/2023 Laboratory Laboratory Processing [facility] [address] [place] [address] 08/24/2023 Laboratory Laboratory Processing [facility] [address] [place] [address] 08/29/2023 Office Visit Urology Funes, Kalpesh Senior MD [address] [address] 08/31/2023 Laboratory Laboratory Processing [facility] [address] [place] [address] 09/07/2023 Laboratory Laboratory Processing [facility] [address] [place] [address] 09/14/2023 Laboratory Laboratory Processing [facility] [address] [place] [address] 09/21/2023 Laboratory Laboratory Processing [facility] [address] [place] [address] 09/21/2023 Office Visit Nephrology Chase, Nataly Christine PA-C [address] [facility] [place] [address] 09/28/2023 Laboratory Laboratory Processing [facility] Mobile Home Draw [address] [place] [address] 10/05/2023 Laboratory Laboratory Processing [facility] Home Draw [address] [place] [address] 10/12/2023 Laboratory Laboratory Processing [facility] Mobile Home Draw [address] [place] [address] 10/19/2023 Laboratory Laboratory Processing [facility] Mobile Home Draw [address] [place] [address] 11/03/2023 Nurse Only Ancillary Nurse Jeronimo Annual Wellness [facility] [address] [place] [address] Scheduled Procedures Name Priority Associated Diagnoses Date/Ti me COLONOSCOPY FLEXIBLE PROXIMAL DIAGNOSTIC Recall History of colon polyps Health Maintenance Due Date Last Done Comments Hepatitis C Screening 1963 DIABETES-FOOT EXAM 03/27/2021 03/27/2020, 08/23/2018 COVID-19 Vaccine (5 - Pfizer series) 12/29/2021 11/03/2021, 12/19/2020, 12/19/2020, Additional history exists Influenza Vaccine (FLU shot) (#1) 2023 07/13/2022, 07/23/2021, 07/07/2020, Additional history exists GFR 10/04/2023 04/04/2023, 02/21, 03/09/2023, Additional history exists HbA1c 10/12/2023 04/12/2023, 03/2023, 03/22/2022, Additional history exists DIABETES-EYE EXAM 11/01/2023 11/01/2022, , 08/04/2011, Additional history exists Depression Screening, Annual for Pts 12 and Over 11/02/2023 11/02/2022 Albumin/Creatinine Ratio 12/27/2023 023, 03/08/2019, 04/09/2014 CKD PHOS USE SMARTSET 36251 12/27/2023 12/26/2022, 0 06/21/2021 CKD HGB USE SMARTSET 73710 04/27/202404/27, 04/27/2023, 04/20/2023, Additional history exists COLONOSCOPY-EVERY 3 YRS AGES [...] this encounter Medical Devices Implanted Type Area Retort Load Expediter Device Identifier Shelf Expiration Date Model / Serial / Lot Lens Intraoc 22.5 - [id number] - [id number] Implanted:Qty: 1 on 05/22/2018 by Jasbir Maurer MD at OR [facility] Right: Eye [employer]OM[employer] 11/22/2022 [id number] / [id number] / [id number] Lens Intraoc 21.0 - [id number] - [id number] Implanted:Qty: 1 on 06/05/2018 by Jasbir Maurer MD at OR [facility] Left: Eye BA[employer]CH [employer] LOMB 12/20/2022 [id number] / [id number] / documented as of this encounter Advance [...] Name Relationship Healthcare Agent Relationshi p Communication Ashlye Jose Spouse Health Care Power of Attor mayela Care Teams Auxiliary Powerplant Operator Relationship Specialty Start Date End Date Michael Hinton MD [address] [place] [address] PCP - General Family Medicine 08/07/17 documented as of this encounter
--- OUTSIDE RECORDS SUMMARY | 2023-10-07 03:09 | External Medical Summary ---
Author Name Unknown Address Unknown Organization K01:[facility] - [address] [place] [address] Laboratory Report Ordering Provider Test Date Status GUERRERO CHAUHAN 05/11/2023 10:45:00 Final Observation Date Value Abnormality Reference (Units ) Status Ferritin 05/11/2023 10:45:00 140 30-400 (ng /mL) Final Performing Location [facility] - [address] [facility] [place] [address]
--- OUTSIDE RECORDS SUMMARY | 2023-10-07 03:09 | External Medical Summary | Summary of Care ---
Author Name Unknown Organization [facility] Address [address] [place] [address] Phone [phone] Care Team Providers Care Poultry Scientist Name Role Phone Michael Hinton MD Primary Care Provider [phone] Reason for Visit * Reason Onset Date Comments [facility]: Maintenance 05/04/2023 Encounter Details Date Type Department Care Team Description 05/04/2023 Scheduled Telephone [facility], [facility] [address] [place] [address] Coordinator, [facility] [address] [place] [address] Allergies Active Allergy Reactions Severity Noted Date Comments Fabiano Inhibitors Cough 06/09/2017 Carbidopa W-Levodopa 03/17/2021 Constipation Nsaids Rash 05/17/2018 Contraindicated per medicaid business analyst documented as of this encounter (statuses as [...] mitral valve regurgitation,Krista nary artery disease involving [place] coronary artery of [place] heart without angina pectoris,Paroxysma l atrial fibrillation [...] Last Assessment & Plan: Followed closely by [facility] hematology. No identified cause of HUNTER. [...] both knees Coronary artery disease invo lving [place] coronary artery of [place] heart without angina pectoris 03/21/2018 Last Assessment [...] mRNA, LNP-s, No Pre serve, 2-Dose Series ([employer]) 11/03/2021,12/19/2020,11/28/2020 Covid-19 Ad26, Single Dose (Soy/J&J) 12/19/2020,11/28/2020 [...] Split, I IV3, With Preserve, Inj 08/23/2016,07/03/2015,07/14/2014,06/23,07/13/2012,07/15/2011,07/27/20,07/02/2009,09/03/2008,08/28/2007,1 10/28/2005,09/07/2005 07/06/2014 TD - Tetanus/Diptheria (ADULT) 05/27/1997 [...] Encounter - Vicky Garcia RN - 05/04/2023 10:28 AM EDT Spoke with patient' spouse, Ashley Partida is urinating a lot after taking dose #1 of Torsemide yesterday Weight down 3 lbs, he is feeling a little better Talked about expected increase in edema when weather is hot/humid as it has been recently Reminded to continue low Salt diet, elevation of legs to hip level when seated Has today and tomorrow for next doses of Torsemide, then done Ashley Garcia RN, BSN [facility] Intake Triage Coordinator [phone] * Telephone Encounter - Vicky Garcia RN - 05/04/2023 9:27 AM EDT Images from the original note were not included. [facility] Telephonic Nurse Follow-Up Call [facility] Subprogram: Primary Care at Home Follow Up [...] Follow up call scheduled for tomorrow with XAVIER Dairy Manufacturing Technologist Future Visits Scheduled: Future Appointments-next 60 days Date/Time Provider Specialty Dept Phone 05/04/2023 4:00 PM José Miguel Giuliano Dairy Manufacturing Technologist [facility] [phone] 05/10/2023 3:30 PM (Arrive by 3:15 PM) HALLIE [facility] Cardiology [phone] 05/11/2023 8:10 AM [facility] Laboratory Processing [phone] 05/18/2023 8:10 AM [facility] Laboratory Processing [phone] 05/23/2023 12:30 PM Mayuri Grant RN [facility] [phone] 05/25/2023 8:10 AM [facility] Laboratory Processing [phone] 06/01/2023 8:10 AM [facility] Laboratory Processing [phone] 06/08/2023 8:10 AM [facility] Laboratory Processing [phone] 06/15/2023 8:10 AM [facility] Laboratory Processing [phone] 06/22/2023 8:10 AM [facility] Laboratory Processing [phone] 06/29/2023 8:10 AM [facility] Laboratory Processing [phone] 07/06/2023 8:10 AM [facility] Processing [phone] 07/06/2023 2:30 PM Berny Power PA-C [facility] [phone] 07/13/2023 8:00 AM [facility] Processing [phone] 07/20/2023 8:00 AM [facility] Processing [phone] 07/27/2023 8:00 AM [facility] Processing [phone] 08/03/2023 8:00 AM [facility] Processing [phone] 08/10/2023 8:00 AM [facility] Processing [phone] 08/17/2023 8:00 AM [facility] Processing [phone] 08/24/2023 8:00 AM [facility] Processing [phone] 08/29/2023 3:15 PM Kalpesh Funes MD Urology [phone] 08/31/2023 8:00 AM [facility] Processing [phone] 09/07/2023 8:00 AM [facility] Processing [phone] 09/14/2023 8:00 AM [facility] Processing [phone] 09/21/2023 8:00 AM [facility] Processing [phone] 09/21/2023 1:30 PM (Arrive by 1:15 PM) Nataly Stone PA-C Nephrology [phone] 09/28/2023 8:00 AM [facility] Processing [phone] 10/05/2023 8:00 AM [facility] Processing [phone] 10/12/2023 8:00 AM [facility] Processing [phone] 10/19/2023 8:00 AM [facility] Processing [phone] 11/03/2023 2:00 PM Nurse Annual Wellness [facility] Ancillary [phone] Vicky Garcia, RN documented in this encounter Plan of Treatment Upcoming Encounters Date Type Specialty Care Team Description 05/10/2023 Office Visit Cardiology Leah Aguilera CRNP [address] [place] [address] 05/11/2023 Laboratory Laboratory Processing [facility] [address] [place] [address] 05/18/2023 Laboratory Laboratory Processing [facility] [address] [place] [address] 05/23/2023 Home Visit [facility] Mayuri Grant RN [address] [place] [address] 05/25/2023 Laboratory Laboratory Processing [facility] [address] [place] [address] 06/01/2023 Laboratory Laboratory Processing [facility] [address] [place] [address] 06/08/2023 Laboratory Laboratory Processing [facility] [address] [place] [address] 06/15/2023 Laboratory Laboratory Processing [facility] [address] [place] [address] 06/22/2023 Laboratory Laboratory Processing [facility] [address] [place] [address] 06/29/2023 Laboratory Laboratory Processing [facility] [address] [place] [address] 07/06/2023 Laboratory Laboratory Processing [facility] [address] [place] [address] 07/06/[address] [facility] [address] [place] [address] 07/13/2023 Laboratory Laboratory Processing [facility] [address] [place] [address] 07/20/2023 Laboratory Laboratory Processing [facility] [address] [place] [address] 07/27/2023 Laboratory Laboratory Processing [facility] [address] [place] [address] 08/03/2023 Laboratory Laboratory Processing [facility] [address] [place] [address] 08/10/2023 Laboratory Laboratory Processing [facility], [facility] [address] [place] [address] 08/17/2023 Laboratory Laboratory Processing [facility], [facility] [address] [place] [address] 08/24/2023 Laboratory Laboratory Processing [facility] [address] [place] [address] 08/29/2023 Office Visit Urology Kalpesh Funes MD [address] [place] [address] 08/31/2023 Laboratory Laboratory Processing [facility] [address] [place] [address] 09/07/2023 Laboratory Laboratory Processing [facility] [address] [place] [address] 09/14/2023 Laboratory Laboratory Processing [facility] [address] [place] [address] 09/21/2023 Laboratory Laboratory Processing [facility] [address] [place] [address] 09/21/2023 Office Visit Nephrology Nataly Stone PA-C [address] [place] [address] 09/28/2023 Laboratory Laboratory Processing [facility] [address] [place] [address] 10/05/2023 Laboratory Laboratory Processing [facility] [address] [place] [address] 10/12/2023 Laboratory Laboratory Processing [facility] [address] [place] [address] 10/19/2023 Laboratory Laboratory Processing [facility] [address] [place] [address] 11/03/2023 Nurse Only Ancillary Decker, Nurse Annual Wellness [facility] [place] [address] Scheduled Procedures Name Priority Associated Diagnoses Date/Ti [...] 023, 03/08/2019, 04/09/2014 CKD PHOS USE SMARTSET 96622 12/27/2023 12/26/2022, 0 06/21/2021 CKD HGB USE SMARTSET 78000 04/27/202404/27, 04/27/2023, 04/20/2023, Additional history exists COLONOSCOPY-EVERY [...] this encounter Medical Devices Implanted Type Area Supervisor Laboratory Device Identifier Shelf Expiration Date Model / Serial / Lot Lens Intraoc 22.5 - [id number] - [id number] Implanted:Qty: 1 on 05/22/2018 by Jasbir Maurer MD at OR [facility] Right: Eye [employer] 11/22/2022 [id number] / [id number] Lens Intraoc 21.0 - [id number] - [id number] Implanted:Qty: 1 on 06/05/2018 by Jasbir Maurer MD at OR [facility] Left: Eye BAUSCH [employer] LOMB 12/20/2022 [id number] / [id number] / documented as of this encounter Advance [...] Relationship Healthcare Agent Relationshi p Communication Ashley Meek Jose Spouse Health Care Power of Attor mayela Care Teams Poultry Scientist Relationship Specialty Start Date End Date Michael Hinton MD [address] [place] [address] PCP - General Family Medicine 08/07/17 documented as of this encounter
--- OUTSIDE RECORDS SUMMARY | 2023-10-07 03:09 | External Medical Summary ---
Author Name Unknown Address Unknown Organization [id number]:LABORATORY [facility] [address] - [address] [place] [address] Laboratory Report Ordering Provider Test Date Status GUERRERO CHAUHAN 05/04/2023 10:59:00 Final Observation Date Value Abnormality Reference (Units ) Status WBC, Total 05/04/2023 10:59:00 4.34 4.00-10.8 0 (K/uL) Final RBC 05/04/2023 10:59:00 3.34 4.50-5.25 (M/uL) Final Hemoglobin 05/04/2023 10:59:00 10.7 Below low normal 14 .0-16.8 (g/dL) Final HCT 05/04/2023 10:59:00 33.3 Below low normal 40. 0-48.4 (%) Final MCV 05/04/2023 10:59:00 99.7 82.0-99.5 (fL) Final MCH 05/04/2023 10:59:00 32.0 27.0-34.0 (pg) Final MCHC 05/04/2023 10:59:00 32.1 32.0-36.0 (g/dL) Final RDW 05/04/2023 10:59:00 15.8 11.5-15.5 (%) Final Platelets 05/04/2023 10:59:00 141 140-400 (K /uL) Final MPV 05/04/2023 10:59:00 9.9 6.6-11.1 ( fL) Final Performing Location LABORATORY [facility] [address] - [address] [place] [address]
--- OUTSIDE RECORDS SUMMARY | 2023-10-07 03:09 | External Medical Summary ---
Author Name Unknown Address Unknown Organization [id number]:LABORATORY [facility] [place] - [address] [place] [address] Laboratory Report Ordering Provider Test Date Status RICHIE FRANCISCO 05/04/2023 10:59:00 Final Observation Date Value Abnormality Reference (Units ) Status BUN 05/04/2023 10:59:00 37 Above high normal 6-20 (mg/dL) Final Creatinine 05/04/2023 10:59:00 1.9 Above high normal 0.6-1.2 (mg/dL) Final Glomerular filtration rate/1.73 sq M.predicted [Volume Rate/Area] in Serum, Plasma or Blood by Creatinine-based formula (CKD-EPI) 05/04/2023 10:59:00 36 Below low normal >=60 (mL/min) Final eGFR is calculated based on the CKD-EPI 2020 equation SODIUM 05/04/2023 10:59:00 143 135-146 (m mol/L) Final Potassium 05/04/2023 10:59:00 4.5 3.5-5.1 (m mol/L) Final Cl 05/04/2023 10:59:00 106 98-107 (mm ol/L) Final CO2 05/04/2023 10:59:00 23 22-32 (mmo l/L) Final Anion gap 05/04/2023 10:59:00 14 7-15 (mmol /L) Final Glucose 05/04/2023 10:59:00 189 Above high normal 70 -120 (mg/dL) Final Calcium 05/04/2023 10:59:00 9.3 8.4-10.2 ( mg/dL) Final Performing Location LABORATORY [facility] [place] - [address] [place] [address]
--- OUTSIDE RECORDS SUMMARY | 2023-10-07 03:09 | External Medical Summary ---
Author Name Unknown Address Unknown Organization K01:LABORATORY [facility] – [place] - [address] [place] [address] Laboratory Report Ordering Provider Test Date Status GUERRERO CHAUHAN 05/04/2023 10:59:00 Final Observation Date Value Abnormality Reference (Units ) Status Ferritin 05/04/2023 10:59:00 176 30-400 (ng /mL) Final Performing Location LABORATORY [facility] – [place] - [address] [address]
--- OUTSIDE RECORDS SUMMARY | 2023-10-07 03:09 | External Medical Summary | Summary of Care ---
Author Name Unknown Organization [facility] Address [address] [place] [address] Phone [phone] Care Team Providers Care Buckram Sewer Name Role Phone Michael Hinton MD Primary Care Provider [phone] Encounter Details Date Type Department Care Team Description 05/05/2023 Telephone [facility], [facility] [address] [place] [facility] [place] [address] So Ivey, HALLIE [address] [place] [address] Allergies Active Allergy Reactions Severity Noted Date Comments Fabiano Inhibitors Cough 06/09/2017 Carbidopa W-Levodopa 03/17/2021 Constipation Nsaids Rash 05/17/2018 Contraindicated per menswear salesperson documented as of this encounter (statuses as of 05/09/2023) Medications Medication Sig Dispensed Refills Start Date [...] mitral valve regurgitation,Krista nary artery disease involving [place] coronary artery of [place] heart without angina pectoris,Paroxysma l atrial fibrillation (HCC),Stage 3b chronic kidney disease (HCC) Take 1 Tablet by mouth in the morning. 180 Tablet 3 05/02/2023 Active DIURETIC TITRATION PLAN If no improvement on day 3, contact heart failure managing provider. 1 Each 0 05/02/2023 Active documented as of this encounter (statuses as of 05/09/2023) Active Problems Problem Noted Date History of [...] Last Assessment & Plan: Followed closely by [facility] hematology. No identified cause of HUNTER. [...] both knees Coronary artery disease invo lving [place] coronary artery of [place] heart without angina pectoris 03/21/2018 Last Assessment [...] as of this encounter (statuses as of 05/09/2023) Resolved Problems Problem Noted Date Resolved Date [...] as of this encounter (statuses as of 05/09/2023) Immunizations Name Administration Dates Next Due COVID-19 mRNA, LNP-s, No Pre serve, 2-Dose Series ([facility]) 11/03/2021,12/19/2020,11/28/2020 Covid-19 Ad26, Single Dose (Soy/J&J) 12/19/2020,11/28/2020 [...] encounter Miscellaneous Notes * Telephone Encounter - HALLIE Maguire - 05/05/2023 10:39 AM EDT Renal function is baseline. BNP is slightly elevated compared to last. He is completing DTP and perphone note yesterday--wt is down and swelling better. NA Messina documented in this encounter Plan of Treatment Upcoming Encounters Date Type Specialty Care Team Description 05/11/2023 Laboratory [facility] [address] [place] [address] 05/18/2023 Laboratory [facility] [address] [place] [address] 05/23/2023 Home Visit [facility] Peggy De RN [address] [place] [address] 05/25/2023 Laboratory [facility] [address] [place] [address] 06/01/2023 Laboratory [facility] [address] [place] [address] 06/08/2023 Laboratory Laboratory [facility] [address] [place] [address] 06/15/2023 Laboratory Laboratory [facility] [address] [place] [address] 06/22/2023 Laboratory Laboratory [facility] [address] [place] [address] 06/29/2023 Laboratory Laboratory [facility] [address] [place] [address] 07/06/2023 Laboratory [facility] [address] [place] [address] 07/06/2023 [facility] [address] [place] [address] 07/13/2023 Laboratory [facility] [address] [place] [address] 07/20/2023 Laboratory Laboratory [facility] [address] [place] [address] 07/27/2023 Laboratory Laboratory [facility] [address] [place] [address] 08/03/2023 Laboratory Laboratory [facility] [address] [place] [address] 08/10/2023 Laboratory [facility] [address] [place] [address] 08/17/2023 Laboratory [facility] [address] [place] [address] 08/24/2023 Laboratory [facility] [address] [place] [address] 08/29/2023 Office Visit Urology Kalpesh Funes MD [address] [place] [address] 08/31/2023 Laboratory [facility] [address] [place] [address] 09/04/2023 Office Visit Cardiology Willy, Leah Arenas, CLINICAL GENETICIST [address] [place] [address] 09/07/2023 Laboratory [facility] [address] [place] [address] 09/14/2023 Laboratory Laboratory [facility] [address] [place] [address] 09/21/2023 Laboratory Laboratory [facility] [address] [place] [address] 09/21/2023 Office Visit Nephrology Nataly Stone PA-C [address] [place] [address] 09/28/2023 Laboratory [facility] [address] [place] [address] 10/05/2023 Laboratory Laboratory [facility] [address] [place] [address] 10/12/2023 Laboratory [facility] [address] [place] [address] 10/19/2023 Laboratory [facility] [address] [place] [address] 11/03/2023 Nurse Only Ancillary Nurse Jeronimo [facility] Niru [address] [place] [...] 023, 03/08/2019, 04/09/2014 CKD PHOS USE SMARTSET 64661 12/27/2023 12/26/2022, 0 06/21/2021 CKD HGB USE SMARTSET 84433 05/04/202405/04, 05/04/2023, 04/27/2023, Additional history exists COLONOSCOPY-EVERY 3 YRS AGES [...] this encounter Medical Devices Implanted Type Area Agricultural Commodities Inspector Device Identifier Shelf Expiration Date Model / Serial / Lot Lens Intraoc 22.5 - [id number] - [id number] Implanted:Qty: 1 on 05/22/2018 by Jasbir Maurer MD at OR [facility] Right: Eye [employer] 11/22/2022 [id number] / [id number] / [id number] Lens Intraoc 21.0 - [id number] - [id number] Implanted:Qty: 1 on 06/05/2018 by Jasbir Maurer MD at OR [facility] Left: Eye [employer]OMB 12/20/2022 [id number] / [id number] / documented as of this encounter Advance [...] Care Power of Attor mayela Care Teams Buckram Sewer Relationship Specialty Start Date End Date Michael Hinton MD [address] [place] [address] PCP - General Family Medicine 08/07/17 documented as of this encounter
--- OUTSIDE RECORDS SUMMARY | 2023-10-07 03:09 | External Medical Summary ---
Author Name Unknown Address Unknown Organization K01:LABORATORY [facility] [place] - [address] [place] [address] Laboratory Report Ordering Provider Test Date Status RICHIE FRANCISCO 05/04/2023 10:59:00 Final Exclude Heart Failure: <300 pg/mL
Diagnose Heart Failure:
Age <50 yr: >450 pg/mL
50-75 yr: >900 pg/mL
>75 yr: >1800 pg/mL
GFR is 30-59 mL/min: >1200 pg/mL or Age- adjusted values
GFR <30 mL/min: do not use, not reliable

Prognostic threshold: 1000 pg/mL Observation Date Value Abnormality Reference (Units ) Status BNP, Pro-hormone 05/04/2023 10:59:00 1082 Above high no rmal <300 (pg/mL) Final Performing Location LABORATORY [facility] [place] - [address] [place] [address]
--- OUTSIDE RECORDS SUMMARY | 2023-10-07 03:09 | External Medical Summary | Summary of Care ---
Author Name Unknown Organization [facility] Address [address] [place] [address] Phone [phone] Care Team Providers Care Installation Engineer Name Role Phone Michael Hinton MD Primary Care Provider [phone] Reason for Visit * Reason Onset Date Comments [facility]: Maintenance 05/08/2023 Encounter Details Date Type Department Care Team Description 05/08/2023 Telephone [facility], [address] [address] Betina Cuello, Community Health Sales Project Administrator [facility]: Maintenance Allergies Active Allergy Reactions Severity Noted Date Comments Fabiano Inhibitors Cough 06/09/2017 Carbidopa W-Levodopa 03/17/2021 Constipation Nsaids Rash 05/17/2018 Contraindicated per newspaper columnist documented as of this encounter (statuses as of 05/08/2023) Medications Medication Sig Dispensed Refills Start Date [...] mitral valve regurgitation,Krista nary artery disease involving [place] coronary artery of [place] heart without angina pectoris,Paroxysma l atrial fibrillation (HCC),Stage 3b chronic kidney disease (HCC) Take 1 Tablet by mouth in the morning. 180 Tablet 3 05/02/2023 Active DIURETIC TITRATION PLAN If no improvement on day 3, contact heart failure managing provider. 1 Each 0 05/02/2023 Active documented as of this encounter (statuses as of 05/08/2023) Active Problems Problem Noted Date History of [...] both knees Coronary artery disease invo lving [place] coronary artery of [place] heart without angina pectoris 03/21/2018 Last Assessment [...] as of this encounter (statuses as of 05/08/2023) Resolved Problems Problem Noted Date Resolved Date [...] as of this encounter (statuses as of 05/08/2023) Immunizations Name Administration Dates Next Due COVID-19 mRNA, LNP-s, No Pre serve, 2-Dose Series ([employer]) 11/03/2021,12/19/2020,11/28/2020 Covid-19 Ad26, Single Dose (Soy/J&J) 12/19/2020,11/28/2020 [...] encounter Miscellaneous Notes * Telephone Encounter - Betina Cuello, Community Health Sales Project Administrator - 05/08/2023 4:24 PM EDT Rescheduled appointment from Mayuri to Peggy De on 05/23/2023 @ 10:00 am They are agreeable to appointment LARRY High documented in this encounter Plan of Treatment Upcoming Encounters Date Type Specialty Care Team Description 05/11/2023 Laboratory [facility] [address] [place] [address] 05/18/2023 Laboratory [facility] [address] [place] [address] 05/23/2023 Home Visit [facility] Peggy De RN [address] [place] [address] 05/25/2023 Laboratory [facility] [address] [place] [address] 06/01/2023 Laboratory [facility] [address] [place] [address] 06/08/2023 Laboratory [facility] [address] [place] [address] 06/15/2023 Laboratory [facility] [address] [place] [address] 06/22/2023 Laboratory Laboratory [facility] [address] [place] [address] 06/29/2023 Laboratory [facility] [address] [place] [address] 07/06/2023 Laboratory [facility] [address] [place] [address] 07/06/20[facility] [address] [place] [address] 07/13/2023 Laboratory [facility] [address] [place] [address] 07/20/2023 Laboratory [facility] [address] [place] [address] 07/27/2023 Laboratory [facility] [address] [place] [address] 08/03/2023 Laboratory [facility] [address] [place] [address] 08/10/2023 Laboratory [facility] [address] [place] [address] 08/17/2023 Laboratory [facility] [address] [place] [address] 08/24/2023 Laboratory [facility] [address] [place] [address] 08/29/2023 Office Visit Urology Kalpesh Funes MD [address] [id number] 08/31/2023 Laboratory [facility] [address] [place] [address] 09/04/2023 Office Visit Cardiology Willy, HALLIE Retana [address] [place] [address] 09/07/2023 Laboratory [facility] [address] [place] [address] 09/14/2023 Laboratory [facility] [address] [place] [address] 09/21/2023 Laboratory [facility] [address] [place] [address] 09/21/2023 Office Visit Nephrology Nataly Stone PA-C [address] [place] [address] 09/28/2023 Laboratory [facility] [address] [place] [address] 10/05/2023 Laboratory [facility] [address] [place] [address] 10/12/2023 Laboratory [facility] [address] [place] [address] 10/19/2023 Laboratory Laboratory [facility] [address] [place] [address] 11/03/2023 Nurse Only Ancillary Decker, Nurse [facility] [place] [address] Scheduled Procedures Name Priority Associated Diagnoses Date/Ti [...] 023, 03/08/2019, 04/09/2014 CKD PHOS USE SMARTSET 52448 12/27/2023 12/26/2022, 0 06/21/2021 CKD HGB USE SMARTSET 88577 05/04/202405/04, 05/04/2023, 04/27/2023, Additional history exists COLONOSCOPY-EVERY [...] this encounter Medical Devices Implanted Type Area Manager Metal Device Identifier Shelf Expiration Date Model / Serial / Lot Lens Intraoc 22.5 - [id number] - [id number] Implanted:Qty: 1 on 05/22/2018 by Jasbir Maurer MD at OR [facility] Right: Eye [employer] 11/22/2022 [id number] / [id number] / [id number] Lens Intraoc 21.0 - [id number] - [id number] Implanted:Qty: 1 on 06/05/2018 by Jasbir Maurer MD at OR [facility] Left: Eye BAUSCH [employer] LOMB 12/20/2022 [id number] / [id number] / documented as of this encounter Advance [...] Care Power of Attor mayela Care Teams Installation Engineer Relationship Specialty Start Date End Date Michael Hinton MD [address] [place] [address] PCP - General Family Medicine 08/07/17 documented as of this encounter
--- OUTSIDE RECORDS SUMMARY | 2023-10-07 03:09 | External Medical Summary ---
Author Name Unknown Address Unknown Organization K0G:LABORATORY [facility] - [address] [place] [id number] Laboratory Report Ordering Provider Test Date Status GUERRERO CHAUHAN 05/04/2023 10:59:00 Final Observation Date Value Abnormality Reference (Units ) Status SYNC LEUKOCYTES IN BLOOD BY AUTOMATED COUNT 05/04/2023 10:59:00 4.34 4.00-10.80 (K/uL) Final Segs 05/04/2023 10:59:00 65.9 40.0-75.0 (%) Final Lymphs % 05/04/2023 10:59:00 24.7 18.0-42.0 (%) Final Monos 05/04/2023 10:59:00 8.3 1.0-11.0 (%) Final Eosinophils 05/04/2023 10:59:00 0.9 0.0-6.0 (%) Final Basos 05/04/2023 10:59:00 0.2 0.0-2.0 (%) Final Absolute Segs 05/04/2023 10:59:00 2.86 1.80-7.70 (K/uL) Final Lymphs, absolute 05/04/2023 10:59:00 1.07 1.00-4.80 (K/ul) Final Monos, Abs 05/04/2023 10:59:00 0.36 0.00-1.10 (K/uL) Final Eos, Abs 05/04/2023 10:59:00 0.04 0.00-0.70 (K/uL) Final Basos, Abs 05/04/2023 10:59:00 0.01 0.00-0.20 (K/uL) Final Per[facility] - [address] [place] [id number]
--- OUTSIDE RECORDS SUMMARY | 2023-10-07 03:09 | External Medical Summary | Summary of Care ---
Author Name Unknown Organization [facility] Address [address] [place] [address] Phone [phone] Care Team Providers Care Track Inspecting Supervisor Name Role Phone Michael Hinton MD Primary Care Provider [phone] Encounter Details Date Type Department Care Team Description 05/03/2023 Telephone [facility], [facility] [address] [facility] [address] So [place], HALLIE [address] [place] [address] Allergies Active Allergy Reactions Severity Noted Date Comments Fabiano Inhibitors Cough 06/09/2017 Carbidopa W-Levodopa 03/17/2021 Constipation Nsaids Rash 05/17/2018 Contraindicated per pulp and paper tester documented as of this encounter (statuses as of 05/03/2023) Medications Medication Sig Dispensed Refills Start Date [...] DAY 90 Tablet 1 10/20/2022 3 Active Atorvastatin Calcium 40 MG Oral Tablet (Lipitor)Indicatio ns:Dyslipidemia, goal LDL below 70 TAKE ONE TABLET BY MOUTH EVERY DAY 90 Tablet 0 05/03/2022 3 Active Betamethasone Dipropionate 0.05 % External OintmentIndication s:Inflamed seborrheic keratosis APPLY TO SKIN LESIONS AND SCALP LESIONS UP TO TWO TIMES A DAY FOR NO LONGER THAN 2 WEEKS AT A TIME FOR ITCH. (THEN TAKE A 2 WEEK BREAK) 45 g 2 05/01/2023 4 Active Torsemide 20 MG Oral Tablet (Demadex)Indicatio ns:Nonrheumatic mitral valve regurgitation,Krista nary artery disease involving confederated coos coronary artery of confed[place] coos heart without angina pectoris,Paroxysma l atrial fibrillation (HCC),Stage 3b chronic kidney disease (HCC) Take 1 Tablet by mouth in the morning. 180 Tablet 3 05/02/2023 Active DIURETIC TITRATION PLAN If no improvement on day 3, contact heart failure managing provider. 1 Each 0 05/02/2023 Active documented as of this encounter (statuses as of 05/03/2023) Active Problems Problem Noted Date History of [...] knees Coronary artery disease invo lving confederated coos coronary artery of confederated coos heart without angina pectoris 03/21/2018 Last Assessment [...] as of this encounter (statuses as of 05/03/2023) Resolved Problems Problem Noted Date Resolved Date [...] scanned document from 11/13/[address] [facility]. 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 CG states she already spoke to someone from [facility]. She is aware of results of Doppler. Radha Corcoran RN [facility] Intake Triage Coordinator [phone] * Telephone Encounter - HALLIE Maguire - 05/03/2023 12:09 PM EDT No DVT seen BLE. Initiated DTP yesterday. Please follow up how he is feeling. documented in this encounter Plan of Treatment Upcoming Encounters Date Type Specialty Care Team Description 05/03/2023 Scheduled Telephone [facility] Economic History Teacher, [facility] [address] [facility] [address] 05/04/2023 Laboratory Laboratory Processing [facility] Mobile Home Draw [address] [place] [address] 05/04/2023 Scheduled Telephone [facility] Economic History Teacher, [facility] [address] [facility] [address] 05/10/2023 Office Visit Cardiology [facility]era CR[facility] [address] [facility] [address] 05/11/2023 Laboratory Laboratory Processing [facility] Mobile Home Draw [address] [place] [address] 05/18/2023 Laboratory Laboratory Processing [facility] [address] [place] [address] 05/23/2023 Home Visit [facility] Mayuri Grant RN [address] [place] [address] 05/25/2023 Laboratory Laboratory Processing [facility] [address] [place] [address] 06/01/2023 Laboratory Laboratory Processing [facility] [address] [place] [address] 06/08/2023 Laboratory Laboratory Processing [facility] [address] [place] [address] 06/15/2023 Laboratory Laboratory Processing [facility] [address] [place] [address] 06/22/2023 Laboratory Laboratory Processing [facility] [address] [place] [address] 06/29/2023 Laboratory Laboratory Processing [facility] [address] [place] [address] 07/06/2023 Laboratory Laboratory Processing [facility] [address] [place] [address] 07/06/2023 Home Visit [facility] Berny Power PA-C [address] [place] [address] 07/13/2023 Laboratory Laboratory Processing [facility] [address] [place] [address] 07/20/2023 Laboratory Laboratory Processing [facility] [address] [place] [address] 07/27/2023 Laboratory Laboratory Processing [facility] [address] [place] [address] 08/03/2023 Laboratory Laboratory Processing [facility] [address] [place] [address] 08/10/2023 Laboratory Laboratory Processing [facility] [address] [place] [address] 08/17/2023 Laboratory Laboratory Processing [facility] [address] [place] [address] 08/24/2023 Laboratory Laboratory Processing [facility] [address] [place] [address] 08/29/2023 Office Visit Urology FunesKalpesh MD [address] [address] 08/31/2023 Laboratory Laboratory Processing [facility] [address] [place] [address] 09/07/2023 Laboratory Laboratory Processing [facility] [address] [place] [address] 09/14/2023 Laboratory Laboratory Processing [facility] [address] [place] [address] 09/21/2023 Laboratory Laboratory Processing [facility], [facility] Mobile Home Draw [address] [place] [address] 09/21/2023 Office Visit Nephrology Nataly Stone PA-C [address] [place] [address] 09/28/2023 Laboratory Laboratory Processing [facility], [facility] Mobile Home Draw [address] [place] [address] 10/05/2023 Laboratory Laboratory Processing [facility], [facility] Mobile Home Draw [address] [place] [address] 10/12/2023 Laboratory Laboratory Processing [facility], [facility] Mobile Home Draw [address] [place] [address] 10/19/2023 Laboratory Laboratory Processing [facility], [facility] Mobile Home Draw [address] [place] [address] 11/03/2023 Nurse Only Ancillary Nurse Jeronimo [facility]ir[facility] [address] [place] [address] Scheduled Procedures Name Priority Associated Diagnoses Date/Ti [...] 03/09/2023, Additional history exists HbA1c 10/12/2023 04/12/2023, 03/0 03/2023, 03/22/2022, Additional history exists DIABETES-EYE EXAM 11/01/2023 11/01/2022, , 08/04/2011, Additional history exists Depression Screening, Annual for Pts 12 and Over 11/02/2023 11/02/2022 Albumin/Creatinine Ratio 12/27/2023 023, 03/08/2019, 04/09/2014 CKD PHOS USE SMARTSET 15224 12/27/2023 12/26/2022, 0 06/21/2021 CKD HGB USE SMARTSET 85304 04/27/202404/27, 04/27/2023, 04/20/2023, Additional history exists COLONOSCOPY-EVERY [...] this encounter Medical Devices Implanted Type Area Documentation Improvement Specialist Device Identifier Shelf Expiration Date Model / Serial / Lot Lens Intraoc 22.5 - [id number] - [id number] Implanted:Qty: 1 on 05/22/2018 by Jasbir Maurer MD at OR [facility] Right: Eye BAUS[employer] LOMB 11/22/2022 [id number] / [id number] / [id number] Lens Intraoc 21.0 - [id number] - [id number] Implanted:Qty: 1 on 06/05/2018 by Jasbir Maurer MD at OR [facility] Left: Eye BAUSCH & LOMB 12/20/2022 [id number] / [id number] / documented as of this encounter Advance [...] Care Power of Attor mayela Care Teams Track Inspecting Supervisor Relationship Specialty Start Date End Date Michael Hinton MD [address] [place] [address] PCP - General Family Medicine 08/07/17 documented as of this encounter
--- OUTSIDE RECORDS SUMMARY | 2023-10-07 03:09 | External Medical Summary ---
Author Name Unknown Address Unknown Organization [facility] [address] [place] [address] Laboratory Report Ordering Provider Test Date Status GUERRERO CHAUHAN 05/11/2023 10:45:00 Final Observation Date Value Abnormality Reference (Units ) Status Nucleated erythrocytes/100 leukocytes [Ratio] in Blood by Automated count 05/11/2023 10:45:00 Final Performing [address] [facility] [address] [place] [address]
--- OUTSIDE RECORDS SUMMARY | 2023-10-07 03:10 | External Medical Summary | Summary of Care ---
Author Name Unknown Organization [facility] Address [address] [place] [address] Phone [phone] Care Team Providers Care Hemodialysis Technician Name Role Phone Michael Hinton MD Primary Care Provider [phone] Reason for Visit * Reason Onset Date Comments [facility]: Maintenance 05/03/2023 Encounter Details Date Type Department Care Team Description 05/03/2023 Scheduled Telephone [facility], [facility] [address] [place] [address] Coordinator, [facility] [address] [place] [address] Allergies Active Allergy Reactions Severity Noted Date Comments Fabiano Inhibitors Cough 06/09/2017 Carbidopa W-Levodopa 03/17/2021 Constipation Nsaids Rash 05/17/2018 Contraindicated per soaker helper documented as of this encounter (statuses as [...] mitral valve regurgitation,Krista 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 No identified cause of HUNTER. 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 [facility] Telephonic Nurse Follow-Up Call [facility] Subprogram: Primary Care at Home Follow Up Call Type: Routine follow up call / Status Check Acute issue requiring follow-up call: Other: DTP Objective: 05/02/2023 11:47 AM 04/17/2023 3:30 PM [...] Torsemide for 3 days Subjective: Condition Status: No change in symptoms Current Concerns: Spoke with spouse, states he will start his Torsemide DTP today when he gets back from getting his ultrasound, has been elevating his lower extremities, following a EVA diet. Disposition: Follow up call scheduled for tomorrow with [facility] Wire Products Inspector Future Visits Scheduled: Future Appointments-next 60 days Date/Time Provider Specialty Dept Phone 05/03/2023 9:30 AM [facility] US[facility] Radiology [phone] 05/03/2023 4:00 PM [facility] Wire Products Inspector [facility] [phone] 05/04/2023 8:10 AM [facility] Mobile [facility] Draw [facility] Laboratory Processing [phone] 05/04/2023 4:00 [facility] [phone] 05/10/2023 3:30 PM (Arrive by 3:15 PM) HALLIE [facility] Cardiology [phone] 05/11/2023 8:10 AM [facility] Laboratory Processing [phone] 05/18/2023 8:10 AM [facility] Draw [facility] Laboratory Processing [phone] 05/23/2023 12:30 PM Mayuri Grant RN [facility] [phone] 05/25/2023 8:10 AM [facility] Draw [facility] Laboratory Processing [phone] 06/01/2023 8:10 AM [facility] Draw [facility] Laboratory Processing [phone] 06/08/2023 8:10 AM [facility] Mobile [facility] Draw [facility] Laboratory Processing [phone] 06/15/2023 8:10 AM [facility] Draw [facility] Laboratory Processing [phone] 06/22/2023 8:10 AM [facility] Draw [facility] Laboratory Processing [phone] 06/29/2023 8:10 AM [facility] Draw [facility] Laboratory Processing [phone] 07/06/2023 8:10 AM [facility] Draw [facility] Laboratory Processing [phone] 07/06/2023 2:30 PM [facility] [phone] 07/13/2023 8:00 AM [facility] Mobile [facility] Draw [facility] Laboratory Processing [phone] 07/20/2023 8:00 AM [facility] Draw [facility] Laboratory Processing [phone] 07/27/2023 8:00 AM [facility] Draw [facility] Laboratory Processing [phone] 08/03/2023 8:00 AM [facility] Laboratory Processing [phone] 08/10/2023 8:00 AM [facility] Laboratory Processing [phone] 08/17/2023 8:00 AM [facility] Laboratory Processing [phone] 08/24/2023 8:00 AM [facility] Mobile [facility] Draw [facility] Laboratory Processing [phone] 08/29/2023 3:15 PM Kalpesh Funes MD Urology [phone] 08/31/2023 8:00 AM [facility] Mobile Home Draw c Laboratory Processing [phone] 09/07/2023 8:00 AM [facility] Draw [facility] Laboratory Processing [phone] 09/14/2023 8:00 AM [facility] Draw [facility] Laboratory Processing [phone] 09/21/2023 8:00 AM [facility] Draw [facility] Laboratory Processing [phone] 09/21/2023 1:30 PM (Arrive by 1:15 PM) Nataly Stone PA-C Nephrology [phone] 09/28/2023 8:00 AM [facility] Draw [facility] Laboratory Processing [phone] 10/05/2023 8:00 AM [facility] Draw [facility] Laboratory Processing [phone] 10/12/2023 8:00 AM [facility] Draw [facility] Laboratory Processing [phone] 10/19/2023 8:00 AM [facility] Draw [facility] Laboratory Processing [phone] 11/03/2023 2:00 PM Nurse Annual [facility] [phone] Esperanza Plummer RN documented in this encounter Plan of Treatment Upcoming Encounters Date Type Specialty Care Team Description 05/04/2023 Laboratory Laboratory Processing [facility] Draw [address] [place] [address] 05/04/2023 Scheduled Telephone [facility] Pie Chef, José Miguel Giuliano Tafoya [address] [place] [address] 05/10/2023 Office Visit Cardiology Leah Aguilera CRNP [address] [place] [address] 05/11/2023 Laboratory Laboratory Processing [facility] Draw [address] [place] [address] 05/18/2023 Laboratory Laboratory Processing [facility] Draw [address] [place] [address] 05/23/2023 Home Visit [facility] Mayuri Grant RN [address] [place] [address] 05/25/2023 Laboratory Laboratory Processing [facility] Draw [address] [place] [address] 06/01/2023 Laboratory Laboratory Processing [facility] Draw [address] [place] [address] 06/08/2023 Laboratory Laboratory Processing [facility] Draw [address] [place] [address] 06/15/2023 Laboratory Laboratory Processing [facility] Draw [address] [place] [address] 06/22/2023 Laboratory Laboratory Processing [facility], [facility] Draw [address] [place] [address] 06/29/2023 Laboratory Laboratory Processing [facility] Draw [address] [place] [address] 07/06/2023 Laboratory Laboratory Processing [facility], [facility] Draw [address] [place] [address] 07/06/2023 [facility] [address] [place] [address] 07/13/2023 Laboratory Laboratory Processing [facility] Draw [address] [place] [address] 07/20/2023 Laboratory Laboratory Processing [facility], [facility] Draw [address] [place] [address] 07/27/2023 Laboratory Laboratory Processing [facility], [facility] Draw [address] [place] [address] 08/03/2023 Laboratory Laboratory Processing [facility], [facility] Draw [address] [place] [address] 08/10/2023 Laboratory Laboratory Processing [facility], [facility] Draw [address] [place] [address] 08/17/2023 Laboratory Laboratory Processing [facility] Draw [address] [place] [address] 08/24/2023 Laboratory Laboratory Processing [facility] Draw [address] [place] [address] 08/29/2023 Office Visit Urology FunesKalpesh MD [address] [address] 08/31/2023 Laboratory Laboratory Processing [facility] Draw [address] [place] [address] 09/07/2023 Laboratory Laboratory Processing [facility] Draw [address] [place] [address] 09/14/2023 Laboratory Laboratory Processing [facility] Draw [address] [place] [address] 09/21/2023 Laboratory Laboratory Processing [facility] Draw [address] [place] [address] 09/21/2023 Office Visit Nephrology Nataly Stone PA-C [address] [place] [address] 09/28/2023 Laboratory Laboratory Processing [facility] Draw [address] [place] [address] 10/05/2023 Laboratory Laboratory Processing [facility] Draw [address] [place] [address] 10/12/2023 Laboratory Laboratory Processing [facility] Draw [address] [place] [address] 10/19/2023 Laboratory Laboratory Processing [facility] Draw [address] [place] [address] 11/03/2023 Nurse Only Ancillary Nurse Jeronimo [facility] Niru [address] [facility] [place] [address] Scheduled Procedures Name Priority Associated Diagnoses Date/Ti [...] 023, 03/08/2019, 04/09/2014 CKD PHOS USE SMARTSET 16644 12/27/2023 12/26/2022, 0 06/21/2021 CKD HGB USE SMARTSET 03557 04/27/202404/27, 04/27/2023, 04/20/2023, Additional history exists COLONOSCOPY-EVERY [...] this encounter Medical Devices Implanted Type Area Route Driver Coin Machines Device Identifier Shelf Expiration Date Model / Serial / Lot Lens Intraoc 22.5 - [id number] - [id number] Implanted:Qty: 1 on 05/22/2018 by Jasbir Maurer MD at OR [facility] Right: Eye [employer] 11/22/2022 [id number] / [id number] / [id number] Lens Intraoc 21.0 - [id number] - [id number] Implanted:Qty: 1 on 06/05/2018 by Jasbir Maurer MD at OR [facility] Left: Eye BAUSCH & LOMB 12/20/2022 [id number] / [id number] / documented as of this encounter Advance [...] Care Power of Attor mayela Care Teams Hemodialysis Technician Relationship Specialty Start Date End Date Michael Hinton MD [address] [facility] [place] [address] PCP - General Family Medicine 08/07/17 documented as of this encounter
--- OUTSIDE RECORDS SUMMARY | 2023-10-07 03:10 | External Medical Summary | Summary of Care ---
Author Name Unknown Organization [facility] Address [address] [place] [id number] Phone [phone] Care Team Providers Care Custodial Laborer Name Role Phone Michael Hinton MD Primary Care Provider [phone] Reason for Referral * Ancillary Services (Within 3 days (urgent)) - Authorized Specialty Diagnoses / Procedures Referred By Contac t Referred To Contact Claims Specialist Diagnoses Hypertensive 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) So Ivey, [address]ALLIE [address] [place] [address] Referral ID Status Reason Start Date Expiration Date Visits Requested Visits Authorized [id number] Authorized Ancillary Services Required 05/02/2023 999 999 Question Answer Referral Priority Within 3 days (urgent) Comments Is Patient homebound? Yes All sections of this form must be filled out completely. Forms with missing or illegible information will be returned for completion. This form should not be modified in any way. Forms that have been modified will be returned. This form may not be submitted by a home health agency. It must be complete and submitted by the ordering provider. One full business day lead time is required and service will be scheduled based on the next service day for the [facility] Home Phlebotomy does not service every geographical location on a daily basis. Contact [facility] Client Services at to find out service days for a specific location. Medical Laboratory [address] [place] [id number] Andrew Romero M.D. Director and Side Laster Patient Name: Jesus Jose : 1945 Sex: male Address [address] [facility] [place] [address] Provider: Self? Michael Hinton MD? Diagnosis: R60.0 Bilateral leg edema (primary encounter diagnosis) I50.32,I25.10 Chronic diastolic 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 (HCC) I50.9 Acute on chronic congestive heart failure, unspecified heart failure type (HCC) I34.0 Nonrheumatic mitral valve regurgitation I25.10 Coronary artery disease involving [place] coronary artery of [place] heart without angina pectoris I48.0 Paroxysmal atrial fibrillation (HCC) N18.32 Stage 3b chronic kidney disease (HCC) D50.9 Iron deficiency anemia, unspecified iron deficiency anemia type I13.0,I50.32,N18.32 Hypertensive 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) Z87.2 History of cellulitis N40.1,N13.8 BPH with obstruction/lower urinary tract symptoms Tests Requested Please draw BMP and BNP with labs drawn on Th05/04/23, thanks Reason for Visit * Reason Comments [facility]: Telehealth Encounter Details Date Type Department Care Team Description 05/02/2023 Telemedicine [facility], [facility] [address] [facility] [place] [address] So Ivey CRNP 132 [facility] [place]ARTEL [address] Jahaira Nava [facility] [employer] Drill Operator Helper [address] [place] [address] [place] Crowell [address] Bilateral leg edema*; Hypertensive 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); Nonrheumatic mitral valve regurgitation; Coronary artery disease involving [place] coronary artery of [place] heart without angina pectoris; Paroxysmal atrial fibrillation (HCC); Stage 3b chronic kidney disease (HCC); Iron deficiency anemia, unspecified iron deficiency anemia type; History of cellulitis; BPH with obstruction/lower urinary tract symptoms Allergies Active Allergy Reactions Severity Noted Date Comments Fabiano Inhibitors Cough 06/09/2017 Carbidopa W-Levodopa 03/17/2021 Constipation Nsaids Rash 05/17/2018 Contraindicated per director of player personnel documented as of this encounter (statuses as of 05/02/2023) Medications Medication Sig Dispensed Refills Start Date [...] 90 Tablet 3 01/24/20 23 024 Active Dutasteride 0.5 MG Oral Capsule (Avodart) TAKE ONE CAPSULE BY MOUTH EVERY MORNING 90 Capsule 3 12/13/19 23 024 Active metFORMIN HCl ER 500 MG Oral Tablet Extended Release 24 Hour (Glucophage XR) TAKE ONE TABLET BY MOUTH EVERY DAY 90 Tablet 1 10/20/20 22 023 Active Atorvastatin Calcium 40 MG Oral Tablet (Lipitor)Indicat ions:Dyslipidemi a, goal LDL below 70 TAKE ONE TABLET BY MOUTH EVERY DAY 90 Tablet 0 05/03/20 22 023 Active Betamethasone Dipropionate 0.05 % External OintmentIndicati ons:Inflamed seborrheic keratosis APPLY TO SKIN LESIONS AND SCALP LESIONS UP TO TWO TIMES A DAY FOR NO LONGER THAN 2 WEEKS AT A TIME FOR ITCH. (THEN TAKE A 2 WEEK BREAK) 45 g 2 05/01/20 23 024 Active Torsemide 20 MG Oral Tablet (Demadex)Indicat ions:Nonrheumati c mitral valve regurgitation,Co ronary artery disease involving [place] coronary artery of [place] heart without angina pectoris,Paroxys mal atrial fibrillation (HCC),Stage 3b chronic kidney disease (HCC) Take 1 Tablet by mouth in the morning. 180 Tablet 3 05/02/20 23 Active DIURETIC TITRATION PLAN If no improvement on day 3, contact heart failure managing provider. 1 Each 0 05/02/20 Active amantadine (SYMMETREL) 100 MG CAPS Take 100 mg by mouth 2 times a day. 0 09/25/20 18 023 Discontinued(Me dication List Clean Up) escitalopram (LEXAPRO) 20 MG Tablet Take 1 [...] 21 023 Discontinued(Me dication List Clean Up) Torsemide 20 MG Oral Tablet (Demadex)Indicat ions:Chronic diastolic 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 ([facility]),Acute on chronic congestive heart failure, unspecified heart failure type ([facility]),Nonrheumat ic mitral valve regurgitation,Co ronary artery disease involving [place] coronary artery of [place] heart without angina pectoris,Paroxys mal atrial fibrillation (HCC),Stage 3b chronic kidney disease ([facility]) TAKE TWO TABLETS BY MOUTH EVERY DAY IN THE MORNING 180 Tablet 3 03/22/20 23 023 Discontinued Escitalopram Oxalate 10 MG Oral Tablet (Lexapro) TAKE ONE TABLET BY MOUTH EVERY DAY 90 Tablet 3 02/24/20 23 023 Discontinued(Me dication List Clean Up) Donepezil HCl 5 MG Oral Tablet (Aricept) TAKE ONE TABLET BY MOUTH EVERY DAY IN THE MORNING 90 Tablet 3 02/17/20 23 023 Discontinued(Me dication List Clean Up) Amantadine HCl 100 MG Oral Capsule (Symmetrel) TAKE ONE CAPSULE BY MOUTH EVERY DAY WITH LUNCH 90 Capsule 1 01/03/20 23 023 Discontinued(Me dication List Clean Up) Donepezil HCl 10 MG Oral Tablet (Aricept) TAKE ONE TABLET BY MOUTH EVERY NIGHT 90 Tablet 3 08/23/20 22 023 Discontinued(Me dication List Clean Up) Donepezil HCl 5 MG Oral Tablet (Aricept) TAKE ONE TABLET BY MOUTH EVERY MORNING 90 Tablet 3 08/23/20 22 023 Discontinued(Me dication List Clean Up) Furosemide 40 MG Oral Tablet (Lasix) TAKE ONE TABLET BY MOUTH TWO TIMES WEEKLY - TAKE MONDAY & MONDAY INSTEAD OF TRIAMTERENE-HCTZ 30 Tablet 3 05/19/20 22 023 Discontinued(Me dication List Clean Up) documented as of this encounter (statuses as of 05/02/2023) Active Problems Problem Noted Date History of [...] Last Assessment & Plan: Followed closely by [facility] hematology. No identified cause of HUNTER. [...] both knees Coronary artery disease invo lving [place] coronary artery of [place] heart without angina pectoris 03/21/2018 Last Assessment [...] as of this encounter (statuses as of 05/02/2023) Resolved Problems Problem Noted Date Resolved Date [...] scanned document from 11/13/[address] [facility] [place]. Coronary artery disease due to [...] as of this encounter (statuses as of 05/02/2023) Immunizations Name Administration Dates Next Due COVID-19 mRNA, LNP-s, No Pre serve, 2-Dose Series (Adormo) 11/03/2021,12/19/2020,11/28/2020 Covid-19 Ad26, Single Dose (Gainspeed/J&J) 12/19/2020,11/28/2020 DTaP - Dipth/Tet/Acell Pertussis 10/24/2019 Pneumococcal [...] Sign Reading Time Taken Comments Blood Pressure 132/46 05/02/2023 11:47 AM EDT Pulse 60 05/02/2023 11:47 AM EDT Temperature 36.7 C (98.1 F) 05/02/2023 11:47 AM E DT Respiratory Rate 18 05/02/2023 11:47 AM EDT Oxygen Saturation 95% 05/02/2023 11:47 AM EDT Inhaled Oxygen Concentration - - Weight - - Height - - Body Mass Index - - documented in this encounter Progress Notes * So HALLIE Mckeon - 05/02/2023 11:00 AM EDT Images from the original note were not included. [facility] Provider Visit Date: 05/02/2023 Time: 11:27 PM [facility] Sub-Program: Primary Care at Home [facility] Episode Start Date: Noted: 03/03/2021 Assessment and Plan #1 Bilateral leg edema - Vascular Duplex Venous Lower Extremity Bilateral #2 Hypertensive 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) Assessment & Plan: "RED FLAG" HF Symptoms: [...] BMP on Thur with his other labs. Orders: - Basic Metabolic Panel; Future - BNP, NT-PRO; Future - Home Phlebotomy Referral OP #3 Nonrheumatic mitral valve regurgitation #4 Coronary artery disease involving [place] coronary artery of [place] heart without angina pectoris Assessment & Plan: Stable, Continue metoprolo, atorvastatin No ASA d/t history severe anemia--GI bleeding? #5 Paroxysmal atrial fibrillation (HCC) Assessment & Plan: Rate controlled -continue metoprolol succinate Not on AC d/t HUNTER and concern for bleeding #6 Stage 3b chronic kidney disease (HCC) #7 Iron deficiency anemia, unspecified iron deficiency anemia type Assessment & Plan: Followed closely by [facility] hematology. No identified cause of HUNTER. Weekly labs monitored by hem/onc. Most recent hgb stable 10.5. #8 History of cellulitis Assessment & Plan: Continues daily cephalexin 500mg for prevention #9 BPH with obstruction/lower urinary tract symptoms Assessment & Plan: Pt unsure if he wants to proceed with BPH. He has intermittent hesitancy, nocturia and frequency but does not feel his symptoms are significant enough to warrant surgery. Also does not want kee fora week post-op since he had bad experience in the past. Aware PCP would like him to have cardiologypre-op clearance prior to surgery. Additional Medical Decision Making: Plan as above. Concern for significant swelling RLE >LLE. Neg venous duplex 2019. Will arrange for stat BLE duplex today or tomorrow at [facility]. DTP initiated --will recheck BMP and BNP with regularly scheduled labs . Intake to follow up daily x 48 with calls. RNCM scheduled in May. [facility] provider visit scheduled in Jun. Pt and agreeable to plan. Check-out note: [facility] intake--please call pt daily for next 48 hours to follow up DTP. Scheduled appointments in the next 60 days: Future Appointments-next 60 days Date/Time Provider Specialty Dept Phone 05/02/2023 11:00 AM Jahaira Nava, [facility] Health Shot Core Drill Operator Helper; HALLIE Maguire at Home [phone] 05/04/2023 8:10 AM [facility] Laboratory Processing [phone] 05/10/2023 3:30 PM (Arrive by 3:15 PM) HALLIE Marshall Cardiology [phone] 05/11/2023 8:10 AM [facility] Laboratory Processing [phone] 05/18/2023 8:10 AM [facility] Laboratory Processing [phone] 05/23/2023 12:30 PM KARLA Fernandes at Home [phone] 05/25/2023 8:10 AM [facility] Laboratory Processing [phone] 06/01/2023 8:10 AM [facility] Laboratory Processing [phone] 06/08/2023 8:10 AM [facility] Laboratory Processing [phone] 06/15/2023 8:10 AM [facility] Laboratory Processing [phone] 06/22/2023 8:10 AM [facility] Laboratory Processing [phone] 06/29/2023 8:10 AM [facility] Laboratory Processing [phone] 07/06/2023 8:10 AM [facility] Laboratory Processing [phone] 07/06/2023 2:30 PM Berny Power PA-C [facility] [phone] 07/13/2023 8:00 AM [facility] Laboratory Processing [phone] 07/20/2023 8:00 AM [facility] Laboratory Processing [phone] 07/27/2023 8:00 AM [facility] Laboratory Processing [phone] 08/03/2023 8:00 AM [facility] Laboratory Processing [phone] 08/10/2023 8:00 AM [facility] Laboratory Processing [phone] 08/17/2023 8:00 AM [facility] Laboratory Processing [phone] 08/24/2023 8:00 AM [facility] Laboratory Processing [phone] 08/29/2023 3:15 PM Kalpesh Funes MD Urology [phone] 08/31/2023 8:00 AM [facility] Laboratory Processing [phone] 09/07/2023 8:00 AM [facility] Laboratory Processing [phone] 09/14/2023 8:00 AM [facility] Laboratory Processing [phone] 09/21/2023 8:00 AM [facility] Laboratory Processing [phone] 09/21/2023 1:30 PM (Arrive by 1:15 PM) Nataly Stone PA-C Nephrology [phone] 09/28/2023 8:00 AM [facility] Laboratory Processing [phone] 10/05/2023 8:00 AM [facility] Laboratory Processing [phone] 10/12/2023 8:00 AM [facility] Laboratory Processing [phone] 10/19/2023 8:00 AM [facility] Laboratory Processing [phone] 11/03/2023 2:00 PM Nurse Annual Wellness [facility] Ancillary [phone] A total of 53 minutes was spent face to face (via video-based telemedicine if designated as a telemedicine visit) Subjective Subjective Is this a Telemedicine Visit? Yes, Patient location: HOME. I was not in a hospital or clinic location. After connecting through televideo, patient was verified with two unique identifiers. Patient (or authorized legal public service representative) was then informed that this was a Telemedicine visit and being conducted confidentially over secure lines. Methods to assure confidentiality were taken. Patient acknowledged consent and understanding of privacy and security of the Telemedicine visit. The patient agreed to participate. Reason For [facility] Visit: Follow-Up one month Current Concerns: Jesus Jose is a 78 year old male seen today for a [facility] provider visit. Iron def anemia--Followed by [facility] hem/onc. Had severe anemia in Aug with hgb 4.3--gets iron infusions. Parkinson's with dementia--Dr. Shannon Bowman--near [place]--does video visits. Can no longer make trip to office, every 6 months BPH--followed by urology CKD 3B--followed by nephrology CAD, history CABG, chronic diastolic CHF, pAF--eliquis on hold d/t anemia--followed by cardiology--noted goal hgb given CHF >10. Asa on hold d/t anemia Today's concerns are: If pt medically stable for TURP. spoke with Dr. Eisenberg and told without procedure the kidney function could worsen. + BPH Continues to follow with hem/onc--have never found cause of HUNTER--was inpatient in January with anemiaand required transfusion. Gets labs weeks--[facility] Dr. Manuel--per the goal is to be at 11. Gets more labs this Thur Continues cephalexin daily --had significant and severe cellulitis and to be on for rest of life. Poor activity tolerance, had home PT in the past. Checks wt daily, today 176lb. +3 pitting RLE-- reports a little worse today Additional Review of Systems Constitutional: Negative for appetite change. Reports no energy to do anything. Respiratory: Negative for cough, shortness of breath and wheezing. Cardiovascular: Negative for chest pain. Gastrointestinal: Negative for blood in stool, constipation and diarrhea. Genitourinary: Negative for decreased urine volume. Musculoskeletal: Positive for arthralgias (R knee pain and sometimes will go out, had steroid inj yesterday). Negative for gait problem and myalgias. Neurological: Positive for dizziness (if gets up too quick). Objective Objective Vitals: 05/02/23 1147 Temp: 36.7 C (98.1 F) Pulse: 60 Resp: 18 SpO2: 95% BP: 132/46 Last Weights: Wt Readings from Last 3 Encounters: 04/12/23 81.2 kg (179 lb) 03/22/23 83.1 kg (183 lb 3.2 oz) 03/21/23 81.2 kg (179 lb) Last BPs: BP Readings from Last 4 Encounters: 05/02/23 132/46 04/17/23 122/62 03/28/23 132/56 03/22/23 130/60 Physical Exam Vitals reviewed. Constitutional: General: He is not in acute distress. Appearance: He is not toxic-appearing. HENT: Head: Normocephalic. Eyes: Conjunctiva/sclera: Conjunctivae normal. Cardiovascular: Rate and Rhythm: Normal rate and regular rhythm. Heart sounds: No murmur heard. Pulmonary: Effort: Pulmonary effort is normal. No respiratory distress. Breath sounds: Normal breath sounds. Musculoskeletal: Right lower leg: Edema (+3-4 pitting) present. Left lower leg: Edema (+2-3 pitting) present. Skin: Coloration: Skin is not pale. Neurological: General: No focal deficit present. Mental Status: He is alert. Psychiatric: Mood and Affect: Mood normal. Behavior: Behavior normal. Thought Content: Thought content normal. Judgment: Judgment normal. Lab Review: I have reviewed the following results: Component Latest Ref Rng 10/19/2022 02/02/2023 03/09/2023 BNP, NT-Pro <300 pg/mL 672 (H) 765 (H) 585 (H) (H) High BMP results Recent Labs Units 04/04/23 1018 03/16/23 0908 03/09/23 1030 SODIUM - [facility] mmol/L 142 142 143 POTASSIUM - [facility] mmol/L 4.5 4.3 4.1 CHLORIDE - [facility] mmol/L 101 101 105 CO2 - [facility] mmol/L 20* 27 24 CREATININE - [facility] mg/dL 1.8* 1.7* 1.5* BUN - [facility] mg/dL 28* 27* 28* Lipid panel results Recent Labs Units 12/26/22 0927 01/11/22 1110 CHOLESTEROL - [facility] mg/dL 267* 183 LDL CHOLESTEROL (CALCULATED) - [facility] mg/dL 178* 99 HDL CHOLESTEROL - [facility] mg/dL 61 65 TRIGLYCERIDES - [facility] mg/dL 141 96 CBC results Recent Labs Units 04/27/23 0827 04/20/23 0844 04/12/23 1300 WBC AUTO - [facility] K/uL 3.53* 3.08* 4.41 HGB - [facility] g/dL 10.5* 10.7* 10.2* HCT - [facility] % 34.9* 35.0* 32.5* PLATELET AUTO - [facility] K/uL 144 144 155 HbA1c results Recent Labs Units 04/12/23 1300 12/26/22 0927 03/22/22 1055 HEMOGLOBIN A1C - [facility] % 6.1* 5.9* 5.5 TSH results Recent Labs Units 12/12/22 1143 05/20/22 1206 06/17/21 1010 TSH - [facility] uIU/mL 4.24* 3.47 2.43 Vitamin D results No results for input(s): 25OHVITAMIND in the last 66090 hours. Hepatic panel results Recent Labs Units 03/09/23 1030 12/26/22 0927 09/14/21 1112 PROTEIN - [facility] g/dL 5.8* 6.1 6.0 BILIRUBIN, TOTAL - [facility] mg/dL 0.2 0.3 0.2 ALKALINE PHOSPHATASE - [facility] U/L 104 111 145* AST - [facility] U/L 24 15 18 ALT - [facility] U/L 22 13 13 Medication Review "Bottles Out" medication review not performed today due to just recently done per --no changes since with medication list reviewed and updated in the EMR as appropriate HALLIE Maguire 1:34 PM *Communication sent to PCP (via autofax if [facility]), [facility] Health Care Team members,relevant Specialty Care Physicians* documented in this encounter Miscellaneous Notes * Assessment & Plan Note - HALLIE Maguire - 05/02/2023 1:16 PM EDT Associated Problem(s): Coronary artery disease involving [place] coronary artery of [place] heart without angina pectoris Stable, Continue metoprolo, atorvastatin No ASA d/t history severe anemia--GI bleeding? * Assessment & Plan Note - HALLIE Maguire - 05/02/2023 1:12 PM EDT Associated Problem(s): BPH with obstruction/lower urinary tract symptoms Pt unsure if he wants to proceed with BPH. He has intermittent hesitancy, nocturia and frequency but does not feel his symptoms are significant enough to warrant surgery. Also does not want kee fora week post-op since he had bad experience in the past. Aware PCP would like him to have cardiologypre-op clearance prior to surgery. * Assessment & Plan Note - HALLIE Maguire - 05/02/2023 1:11 PM EDT Associated Problem(s): History of cellulitis Continues daily cephalexin 500mg for prevention * Assessment & Plan Note - HALLIE Maguire - 05/02/2023 1:10 PM EDT Associated Problem(s): Atrial fibrillation (HCC) Rate controlled -continue metoprolol succinate Not on AC d/t HUNTER and concern for bleeding * Assessment & Plan Note - HALLIE Maguire - 05/02/2023 1:04 PM EDT Associated Problem(s): Hypertensive 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) "RED FLAG" HF Symptoms: o Leg Swelling [...] BMP on Thur with his other labs. * Assessment & Plan Note - HALLIE Maguire - 05/02/2023 1:04 PM EDT Associated Problem(s): Iron deficiency anemia Followed closely by [facility] hematology. No identified cause of HUNTER. Weekly labs monitored by hem/onc. Most recent hgb stable 10.5. * Assessment & Plan Note - HALLIE Maguire - 05/02/2023 1:03 PM EDT Associated Problem(s): Primary parkinsonism (HCC) Baseline -Continue amantadine Followed by Dr. Shannon Bowman via telemedicine every 6 months documented in this encounter Plan of Treatment Upcoming Encounters Date Type Specialty Care Team Description 05/03/2023 Imaging Radiology 05/03/2023 Scheduled Telephone [facility], [address] [place] [address] 05/04/[address] [facility], [facility] Mobile Home Draw [address] [facility] at [place] [id number] 05/04/2023 Scheduled Telephone [facility], [facility] Giuliano Tafoya [address] [place] [address] 05/10/2023 Office Visit Cardiology Leah Aguilera CRNP [address] [place] [address] 05/11/2023 Laboratory Laboratory Processing [facility] [address] [place] [address] 05/18/2023 Laboratory Laboratory Processing [facility] [address] [place] [address] 05/23/2023 Home Visit [facility] Mayuri Grant RN [address] [place] [address] 05/25/2023 Laboratory Laboratory Processing [facility] [address] [place] [address] 06/01/2023 Laboratory Laboratory Processing [facility] [address] [place] [address] 06/08/2023 Laboratory Laboratory Processing [facility] [address] [place] [address] 06/15/2023 Laboratory Laboratory Processing [facility] [address] [place] [address] 06/22/2023 Laboratory Laboratory Processing [facility] [address] [place] [address] 06/29/2023 Laboratory Laboratory Processing [facility] [address] [place] [address] 07/06/2023 Laboratory Laboratory Processing [facility] Draw [address] [place] [address] 07/06/2023 Home Visit [facility] at [facility] IDALIA Arrieta- [address] [place] [address] 07/13/2023 Laboratory Laboratory Processing [facility] [address] [place] [address] 07/20/2023 Laboratory Laboratory Processing [facility] [address] [place] [address] 07/27/2023 Laboratory Laboratory Processing [facility] Draw [address] [place] [address] 08/03/2023 Laboratory Laboratory Processing [facility] Draw [address] [place] [address] 08/10/2023 Laboratory Laboratory Processing [facility] Draw [address] [place] [address] 08/17/2023 Laboratory Laboratory Processing [facility] [address] [place] [address] 08/24/2023 Laboratory Laboratory Processing [facility] Draw [address] [place] [address] 08/29/2023 Office Visit Urology Kalpesh Funes MD [address] [place] [address] 08/31/2023 Laboratory Laboratory Processing [facility] [address] [place] [address] 09/07/2023 Laboratory Laboratory Processing [facility] [address] [place] [address] 09/14/2023 Laboratory Laboratory Processing [facility] [address] [place] [address] 09/21/2023 Laboratory Laboratory Processing [facility] [address] [place] [address] 09/21/2023 Office Visit Nephrology Nataly Stone PA-C [address] [place] [address] 09/28/2023 Laboratory Laboratory Processing [facility] [address] [place] [address] 10/05/2023 Laboratory Laboratory Processing [facility] [address] [place] [address] 10/12/2023 Laboratory Laboratory Processing [facility] [address] [place] [address] 10/19/2023 Laboratory Laboratory Processing [facility] [address] [place] [address] 11/03/2023 Nurse Only Ancillary Decker, Nurse Annual Wellness Niru [address] [place] [address] Scheduled Orders Name Type Priority Associated Diagnoses Orde r Schedule VASC DUPLEX VENOUS LE BILAT Medical Imaging STAT Bilateral leg edema Ordered: 05/02/2023 BASIC METABOLIC PANEL Lab Routine Hypertensive 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) Expected: 05/02/2023 (Approximate), Expires: 05/01/2024 BNP, NT-PRO Lab Routine Hypertensive 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) Expected: 05/02/2023 (Approximate), Expires: 05/01/2024 Scheduled Procedures Name Priority Associated Diagnoses Date/Ti me COLONOSCOPY FLEXIBLE PROXIMAL DIAGNOSTIC Recall History of colon polyps Scheduled Referrals Name Type Priority Associated Diagnoses Orde r Schedule HOME PHLEBOTOMY REFERRAL OP Referral Within 3 days (urgent) Hypertensive 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) Ordered: 05/02/2023 Health Maintenance Due Date Last Done Comments [...] 023, 03/08/2019, 04/09/2014 CKD PHOS USE SMARTSET 29211 12/27/2023 12/26/2022, 0 06/21/2021 CKD HGB USE SMARTSET 74463 04/27/202404/27, 04/27/2023, 04/20/2023, Additional history exists COLONOSCOPY-EVERY [...] this encounter Medical Devices Implanted Type Area Scrapper Device Identifier Shelf Expiration Date Model / Serial / Lot Lens Intraoc 22.5 - [id number] - [id number] Implanted:Qty: 1 on 05/22/2018 by Jasbir Maurer MD at [facility] Right: Eye [employer] 11/22/2022 [id number] / [id number] / [id number] Lens Intraoc 21.0 - [id number] - [id number] Implanted:Qty: 1 on 06/05/2018 by Jasbir Maurer MD at [facility] Left: Eye [employer] 12/20/2022 [id number] / [id number] / documented as of this encounter Visit Diagnoses Diagnosis Bilateral leg edema- Primary Edema Hypertensive 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) Nonrheumatic mitral valve regurgitation Coronary artery disease involving [place] coronary artery of [place] heart without angina pectoris Paroxysmal atrial fibrillation (HCC) Atrial fibrillation Stage 3b chronic kidney disease (HCC) Iron deficiency anemia, unspecified iron deficiency anemia type History of cellulitis BPH with obstruction/lower urinary tract symptoms Hypertrophy of prostate with urinary obstruction and other lower urinary tract symptoms (LUTS) documented in this encounter Advance Directives Latest [...] Agents on File Name Relationship Healthcare [facility] Ashley Fantasma Jose Spouse Health Care Power of Attor randolph Care Teams Custodial Laborer Relationship Specialty Start Date End Date Michael Hinton MD [address] [place] [address] PCP - General Family Medicine 08/07/17 documented as of this encounter
--- OUTSIDE RECORDS SUMMARY | 2023-10-07 03:10 | External Medical Summary | Summary of Care ---
Author Name Unknown Organization [facility] Address [address] [place] [id number] Phone [phone] Care Team Providers Care Sas Architect Name Role Phone Michael Hinton MD Primary Care Provider [phone] Reason for Referral * Ancillary Services (Within 3 days (urgent)) - Authorized Specialty Diagnoses / Procedures Referred By Contac t Referred To Contact [facility] Cook Diagnoses Hypertensive 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) So Ivey, HALLIE [address] [place] [address] Referral ID Status Reason Start Date Expiration Date Visits Requested Visits Authorized [id number] Authorized Ancillary Services Required 05/02/2023 999 999 [...] on the next service day for the [facility] Home Phlebotomy does not service every geographical location on a daily basis. Contact [facility] Client Services at to find out service days for a specific location. Medical Laboratory [address] [place] [id number] Andrew Romero M.D. Director and Professor Computer Science Patient Name: Jesus Jose : 1945 Sex: male Address [address] [place] [address] Provider: Self? Michael Hinton MD? Diagnosis: R60.0 Bilateral leg edema (primary encounter diagnosis) I50.32,I25.10 Chronic diastolic 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 (HCC) I50.9 Acute on chronic congestive heart failure, unspecified heart failure type (HCC) I34.0 Nonrheumatic mitral valve regurgitation I25.10 Coronary artery disease involving three affiliated coronary artery of three affiliated heart without angina pectoris I48.0 Paroxysmal atrial [...] Team Description 05/02/2023 Telemedicine [facility], [facility] [address] [facility] [place] [address] So Ivey CRNP [address] [facility] [place] [address] Jahaira Nava [facility] Tax Form Preparer [address] [place] [address] [place] [address] Bilateral leg edema*; Hypertensive 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); Nonrheumatic mitral valve regurgitation; Coronary artery disease involving three affiliated coronary artery of three affiliated heart without angina pectoris; Paroxysmal atrial fibrillation (HCC); Stage 3b chronic kidney disease (HCC); Iron deficiency anemia, unspecified iron deficiency anemia type; History of cellulitis; BPH with obstruction/lower urinary tract symptoms Allergies Active Allergy Reactions Severity Noted Date Comments Fabiano Inhibitors Cough 06/09/2017 Carbidopa W-Levodopa 03/17/2021 Constipation Nsaids Rash 05/17/2018 Contraindicated per program coordinator documented as of this encounter (statuses as [...] mitral valve regurgitation,Co ronary artery disease involving three affiliated coronary artery of three affiliated heart without angina pectoris,Paroxys mal atrial fibrillation [...] secondary to coronary artery disease ([facility]),Acute on chronic congestive heart failure, unspecified heart failure type ([facility]),Nonrheumat ic mitral valve regurgitation,Co ronary artery disease involving three affiliated coronary artery of three affiliated heart without angina pectoris,Paroxys mal atrial fibrillation (HCC),Stage 3b chronic kidney disease ([facility]) TAKE TWO TABLETS BY MOUTH [...] -continue metoprolol succinate Not on AC d/t HUNTRE and concern for bleeding Urge incontinence 08/24/2022 [...] Last Assessment & Plan: Followed closely by [facility] hematology. No identified cause of [...] both knees Coronary artery disease invo lving three affiliated coronary artery of three affiliated heart without angina pectoris 03/21/2018 Last Assessment [...] scanned document from 11/13/[address] [facility]. Coronary artery disease due to calcified [...] mRNA, LNP-s, No Pre serve, 2-Dose Series ([employer]) 11/03/2021,12/19/2020,11/28/2020 Covid-19 Ad26, Single Dose ([employer]) 12/19/2020,11/28/2020 DTaP - Dipth/Tet/Acell Pertussis 10/24/2019 Pneumococcal [...] documented in this encounter Progress Notes * Jahaira Nava [facility] Tax Form Preparer - 05/02/2023 4:02 PM EDT [facility] Tax Form Preparer Visit Date: 05/02/2023 Time: 11:20 AM Name: Jesus Jose : 1945 Referral Source: Provider Source of Information: Patient and daughter present Spoken language: Moroccan Patient can read in Moroccan: Yes. Laundry Aid needed: No. COVID-19 screening completed: Yes Vitals: Vital signs completed: Yes, vital signs within normal range. BP 132/46 | Pulse 60 | Temp 36.7 C (98.1 F) | Resp 18 | SpO2 95% Condition Changes: Changes in health or social status since last visit: [facility] for follow up telehealth with [facility] provider. The patient has new concerns since last visit: Yes, wishes to discuss possible prostate surgery. Progress towards goals since last visit: Continues living independently with assistance of family Medications: Medication review completed? No, completed by provider Does the patient have barriers to medication adherence? No. Patient reports difficulty paying for medications or might in the future: No. Telehealth: This is a telehealth visit: Yes. Type of telehealth visit: Return/Routine Visit conducted with: Physician/AP Symptoms Surveys and Evaluations: MAHC10 completed this visit: Yes. Score is 4 or more? Yes, notified Provider/Petrol Tanker Driver Last flowsheet values for MAHC10: Age 65+: 1 (03/28/2023 11:00 AM) Diagnosis (3 or more co-existing): 1 (03/28/2023 11:00 AM) Prior history of falls within 3 months: 1 (03/28/2023 11:00 AM) Incontinence: 1 (03/28/2023 11:00 AM) Visual impairment: 0 (03/28/2023 11:00 AM) Impaired functional mobility: 1 (03/28/2023 11:00 AM) Environmental hazards: 0 (03/28/2023 11:00 AM) Poly Pharmacy (4 or more prescriptions - any type): 1 (03/28/2023 11:00 AM) Pain affecting level of function: 1 (03/28/2023 11:00 AM) Cognitive impairment: 1 (03/28/2023 11:00 AM) Score - a score of 4 or more is considered at risk for fallin (03/28/2023 11:00 AM) Heart Failure Checklist A "good day" for the patient looks like able to walk around, not having to urinate frequently. Today is different than a "good day": No Patient describes sleep as Normal The patient has been asked to track the amount of fluid they drink: No. There is an AMC scale in the home: Yes. Patient demonstrated how they use it Typically, the patient's meals look like Patient's food choices are lower in sodium. Plan: Notified Provider/Petrol Tanker Driver of Questions/Concerns: re: possible procedure Reinforced patient's three red flags by the care team Patient's 'Red Flags': Wt increased to 184lbs falls Increased edema Increased MUSTAFA Follow Up: Patient encouraged to call the intake phone number for all urgent but not emergent issues. Scheduled to follow up with patient in PRN. [facility] 05/02/2023 11:20 AM * HALLIE Maguire - 05/02/2023 11:00 AM EDT Images from the original note were not included. [facility] at Home Problem Oriented Charting Provider Visit Date: 05/02/2023 Time: 11:27 PM [facility] Sub-Program: Primary Care at Home [facility] Episode Start Date: Noted: 03/03/2021 Assessment and [...] up. Will recheck BNP and BMP on with his other labs. Orders: - Basic Metabolic Panel; Future - BNP, NT-PRO; Future - Home Phlebotomy Referral OP #3 Nonrheumatic mitral valve regurgitation #4 Coronary artery disease involving three affiliated coronary artery of three affiliated heart without angina pectoris Assessment & Plan: Stable, Continue metoprolo, atorvastatin No ASA d/t history severe anemia--GI bleeding? #5 Paroxysmal atrial fibrillation (HCC) Assessment & Plan: Rate controlled -continue metoprolol succinate Not on AC d/t HUNTER and concern for bleeding #6 Stage 3b chronic kidney disease (HCC) #7 Iron deficiency anemia, unspecified iron deficiency anemia type Assessment & Plan: Followed closely by [facility] hematology. No identified cause of [...] stat BLE duplex today or tomorrow at [facility]. DTP initiated --will recheck BMP and BNP with regularly scheduled labs . Intake to follow up daily x 48 with calls. RNCM scheduled in May. [facility] provider visit scheduled in Jun. Pt and agreeable to plan. Check-out note: [facility] intake--please call pt daily for next 48 hours to follow up DTP. Scheduled appointments in the next 60 days: Future Appointments-next 60 days Date/Time Provider Specialty Dept Phone 05/02/2023 11:00 AM Jahaira Nava, [facility] Tax Form Preparer; [facility] at Home [phone] 05/04/2023 8:10 AM [facility] Processing [phone] 05/10/2023 3:30 PM (Arrive by 3:15 PM) HALLIE Marshall Cardiology [phone] 05/11/2023 8:10 AM [facility] [phone] 05/18/2023 8:10 AM [facility] [phone] 05/23/2023 12:30 PM Mayuri Grant RN [facility] [phone] 05/25/2023 8:10 AM [facility] [phone] 06/01/2023 8:10 AM [facility] [phone] 06/08/2023 8:10 AM [facility] [phone] 06/15/2023 8:10 AM [facility] [phone] 06/22/2023 8:10 AM [facility] [phone] 06/29/2023 8:10 AM [facility] [phone] 07/06/2023 8:10 AM [facility] [phone] 07/06/2023 2:30 PM Berny Power PA-C [facility] [phone] 07/13/2023 8:00 AM [facility] [phone] 07/20/2023 8:00 AM [facility] [phone] 07/27/2023 8:00 AM [facility] [phone] 08/03/2023 8:00 AM [facility] [phone] 08/10/2023 8:00 AM [facility] [phone] 08/17/2023 8:00 AM [facility] [phone] 08/24/2023 8:00 AM [facility] [phone] 08/29/2023 3:15 PM Kalpesh Funes MD Urology [phone] 08/31/2023 8:00 AM [facility] Processing [phone] 09/07/2023 8:00 AM [facility] Laboratory Processing [phone] 09/14/2023 8:00 AM [facility] Laboratory Processing [phone] 09/21/2023 8:00 AM [facility] Laboratory Processing [phone] 09/21/2023 1:30 PM (Arrive by 1:15 PM) Nataly Stone PA-C Nephrology [phone] 09/28/2023 8:00 AM [facility] Laboratory Processing [phone] 10/05/2023 8:00 AM [facility] Laboratory Processing [phone] 10/12/2023 8:00 AM [facility] Laboratory Processing [phone] 10/19/2023 8:00 AM [facility] Laboratory Processing [phone] 11/03/2023 2:00 PM Nurse Annual Wellness [facility] Ancillary [phone] A total of 53 minutes was spent face to face (via video-based telemedicine if designated as a telemedicine visit) Subjective Subjective Is this a Telemedicine Visit? Yes, Patient location: HOME. I was not in a hospital or clinic location. After connecting through televideo, patient was verified with two unique identifiers. Patient (or authorized legal bottling equipment sales representative) was then informed that this was a Telemedicine visit and being conducted confidentially over secure lines. Methods to assure confidentiality were taken. Patient acknowledged consent and understanding of privacy and security of the Telemedicine visit. The patient agreed to participate. Reason For [facility] Visit: Follow-Up one month Current Concerns: Jesus Jose is a 78 year old male seen today for a [facility] provider visit. Iron def anemia--Followed by [facility] hem/onc. Had severe anemia in Nov with hgb 4.3--gets iron infusions. Parkinson's with dementia--Dr. Shannon Bowman--near [place]--does video visits. Can no longer make trip [...] with anemiaand required transfusion. Gets labs weeks--[facility] Dr. Manuel--per the goal is to be [...] results for input(s): 25OHVITAMIND in the last 33967 hours. Hepatic panel results Recent Labs Units [...] 1:34 PM *Communication sent to PCP (via [facility] if non-[facility]), [facility] Care Team members,relevant Specialty Care Physicians* documented in this encounter Miscellaneous Notes * Assessment & Plan Note - HALLIE Maguire - 05/02/2023 1:16 PM EDT Associated Problem(s): Coronary artery disease involving three affiliated coronary artery of three affiliated heart without angina pectoris Stable, Continue metoprolo, [...] Problem(s): Iron deficiency anemia Followed closely by [facility] hematology. No identified cause of [...] Imaging Radiology 05/03/2023 Scheduled Telephone [facility], [facility] [address] [facility] [place] [address] 05/04/2023 Laboratory Laboratory Processing [facility] Draw [address] [place] [address] 05/04/2023 Scheduled Telephone [facility], [facility] [address] [facility] [place] [address] 05/10/2023 Office Visit Cardiology Leah Aguilera CRNP [address] [place] [address] 05/11/2023 Laboratory Laboratory Processing [facility] [address] [place] [address] 05/18/2023 Laboratory Laboratory Processing [facility] Draw [address] [place] [address] 05/23/2023 Home Visit [facility] Mayuri Grant RN [address] [facility] [place] [address] 05/25/2023 Laboratory Laboratory Processing [facility] [address] [place] [address] 06/01/2023 Laboratory Laboratory Processing [facility] [address] [place] [address] 06/08/2023 Laboratory Laboratory Processing [facility] [address] [place] [address] 06/15/2023 Laboratory Laboratory Processing [facility] [address] [place] [address] 06/22/2023 Laboratory Laboratory Processing [facility] [address] [place] [address] 06/29/2023 Laboratory Laboratory Processing [facility] [address] [place] [address] 07/06/2023 Laboratory Laboratory Processing [facility] [address] [place] [address] 07/06/2023 [facility] [address] [place] [address] 07/13/2023 Laboratory Laboratory Processing [facility] [address] [place] [address] 07/20/2023 Laboratory Laboratory Processing [facility] [address] [place] [address] 07/27/2023 Laboratory Laboratory Processing [facility] [address] [place] [address] 08/03/2023 Laboratory Laboratory Processing [facility] [address] [place] [address] 08/10/2023 Laboratory Laboratory Processing [facility] [address] [place] [address] 08/17/2023 Laboratory Laboratory Processing [facility] [address] [place] [address] 08/24/2023 Laboratory Laboratory Processing [facility] [address] [place] [address] 08/29/2023 Office Visit Urology Kalpesh Funes MD [address] [address] 08/31/2023 Laboratory Laboratory Processing [facility] [address] [place] [address] 09/07/2023 Laboratory Laboratory Processing [facility] [address] [place] [address] 09/14/2023 Laboratory Laboratory Processing [facility] [address] [place] [address] 09/21/2023 Laboratory Laboratory Processing [facility] [address] [place] [address] 09/21/2023 Office Visit Nephrology Nataly Stone PA-C [address] [place] [address] 09/28/2023 Laboratory Laboratory Processing [facility] [address] [place] [address] 10/05/2023 Laboratory Laboratory Processing [facility] [address] [place] [address] 10/12/2023 Laboratory Laboratory Processing [facility] [address] [place] [address] 10/19/2023 Laboratory Laboratory Processing [facility] [address] [place] [address] 11/03/2023 Nurse Only Ancillary Nurse Jeronimo Annual Well[facility] Niru [address] [place] [address] Scheduled Orders Name Type Priority Associated Diagnoses [...] 03/09/2023, Additional history exists HbA1c 10/12/2023 04/12/2023, 030 03/2023, 03/22/2022, Additional history exists DIABETES-EYE EXAM 11/01/2023 11/01/2022, , 08/04/2011, Additional history exists Depression Screening, Annual for Pts 12 and Over 11/02/2023 11/02/2022 Albumin/Creatinine Ratio 12/27/2023 023, 03/08/2019, 04/09/2014 CKD PHOS USE SMARTSET 51946 12/27/2023 12/26/2022, 0 06/21/2021 CKD HGB USE SMARTSET 05493 04/27/202404/27, 04/27/2023, 04/20/2023, Additional history exists COLONOSCOPY-EVERY [...] this encounter Medical Devices Implanted Type Area Acupressurist Device Identifier Shelf Expiration Date Model / Serial / Lot Lens Intraoc 22.5 - [id number] - [id number] Implanted:Qty: 1 on 05/22/2018 by Jasbir Maurer MD at OR [facility] Right: Eye [employer] 11/22/2022 [id number] / [id number] / [id number] Lens Intraoc 21.0 - [id number] - [id number] Implanted:Qty: 1 on 06/05/2018 by Jasbir Maurer MD at OR [facility] Left: Eye [employer] 12/20/2022 [id number] / [id number] / documented as of this encounter Visit Diagnoses Diagnosis Bilateral leg edema- Primary Edema 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
--- OUTSIDE RECORDS SUMMARY | 2023-10-07 03:10 | External Medical Summary | Summary of Care ---
Author Name Unknown Organization [facility] Address [address] [place] [id number] Phone [phone] Care Team Providers Care Other Spatial Scientist Name Role Phone Michael Hinton MD Primary Care Provider [phone] Reason for Referral * Ancillary Services (Within 3 days (urgent)) - Authorized Specialty Diagnoses / Procedures Referred By Contac t Referred To Contact Bead Forming Machine Set Up Operator Diagnoses Hypertensive 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) So Ivey, HALLIE [address] [place] [address] Referral ID Status Reason Start Date Expiration Date Visits Requested Visits Authorized [id number] Authorized Ancillary Services Required 05/02/2023 999 999 [...] on the next service day for the [facility] Home Phlebotomy does not service every geographical location on a daily basis. Contact [facility] Client Services at to find out service days for a specific location. Medical Laboratory [address] [place] [id number] Andrew Romero M.D. Director and Bit Welder Patient Name: Jesus Jose : 1945 Sex: male Address [address] [facility] [place] [address] Provider: Self? Michael Hinton MD? Diagnosis: R60.0 Bilateral leg edema (primary encounter diagnosis) I50.32,I25.10 Chronic diastolic 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 (HCC) I50.9 Acute on chronic congestive heart failure, unspecified heart failure type (HCC) I34.0 Nonrheumatic mitral valve regurgitation I25.10 Coronary artery disease involving [place] coronary artery of [place] heart without angina pectoris I48.0 Paroxysmal atrial [...] Team Description 05/02/2023 Telemedicine [facility], [facility] [address] [facility] [place] [address] So Ivey CRNP [address] [facility] [place] [address] Jahaira [facility] B[facility] Straightener [address] [place] [address] [place] [address] Bilateral leg edema*; Hypertensive 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); Nonrheumatic mitral valve regurgitation; Coronary artery disease involving [place] coronary artery of sp[place] heart without angina pectoris; Paroxysmal atrial fibrillation (HCC); Stage 3b chronic kidney disease (HCC); Iron deficiency anemia, unspecified iron deficiency anemia type; History of cellulitis; BPH with obstruction/lower urinary tract symptoms Allergies Active Allergy Reactions Severity Noted Date Comments Fabiano Inhibitors Cough 06/09/2017 Carbidopa W-Levodopa 03/17/2021 Constipation Nsaids Rash 05/17/2018 Contraindicated per skin drier documented as of this encounter (statuses as [...] mitral valve regurgitation,Co ronary artery disease involving [place] coronary artery of [place] heart without angina pectoris,Paroxys mal atrial fibrillation [...] 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 ([facility]),Acute on chronic congestive heart failure, unspecified heart failure type ([facility]),Nonrheumat ic mitral valve regurgitation,Co ronary artery disease involving [place] coronary artery of [place] heart without angina pectoris,Paroxys mal atrial fibrillation (HCC),Stage 3b chronic kidney disease ([facility]) TAKE TWO TABLETS BY MOUTH EVERY DAY [...] Beta Sheldon Therapy: Metoprolol Succinate (ER) o AFBIANO Inhibitor/ARB Therapy: No FABIANO/ARB/ARNI secondary to: cough [...] Last Assessment & Plan: Followed closely by [facility] hematology. No identified cause of HUNTER. Weekly [...] both knees Coronary artery disease invo lving sp[place] coronary artery of [place] heart without angina pectoris 03/21/2018 Last Assessment [...] scanned document from 11/13/[address] [facility]. Coronary [...] mRNA, LNP-s, No Pre serve, 2-Dose Series ([place]) 11/03/2021,12/19/2020,11/28/2020 Covid-19 Ad26, Single Dose (Booster/J&J) 12/19/2020,11/28/2020 DTaP - Dipth/Tet/Acell Pertussis 10/24/2019 Pneumococcal [...] from the original note were [facility]. [facility] Provider Visit Date: 05/02/2023 Time: 11:27 PM [facility] Sub-Program: Primary Care at Home [facility] Episode Start Date: Noted: 03/03/2021 [...] valve regurgitation #4 Coronary artery disease involving [place] coronary artery of sp[place] heart without angina pectoris Assessment & Plan: Stable, Continue metoprolo, atorvastatin No ASA d/t history severe anemia--GI bleeding? #5 Paroxysmal atrial fibrillation (HCC) Assessment & Plan: Rate controlled -continue metoprolol succinate Not on AC d/t HUNTER and concern for bleeding #6 Stage 3b chronic kidney disease (HCC) #7 Iron deficiency anemia, unspecified iron deficiency anemia type Assessment & Plan: Followed closely by [facility] hematology. No identified cause of HUNTER. Weekly [...] stat BLE duplex today or tomorrow at [facility]. DTP initiated --will recheck BMP and BNP with regularly scheduled labs . Intake to follow up daily x 48 with calls. RNCM scheduled in May. [facility] provider visit scheduled in Jun. Pt and agreeable to plan. Check-out note: [facility] intake--please call pt daily for next 48 hours to follow up DTP. Scheduled appointments in the next 60 days: Future Appointments-next 60 days Date/Time Provider Specialty Dept Phone 05/02/2023 11:00 AM Jahaira Nava, [facility] Bumper Straightener; HALLIE Maguire at Home [phone] 05/04/2023 8:10 AM [facility] Laboratory Processing [phone] 05/10/2023 3:30 PM (Arrive by 3:15 PM) HALLIE Marshall Cardiology [phone] 05/11/2023 8:10 AM [facility] Laboratory Processing [phone] 05/18/2023 8:10 AM [facility] Laboratory Processing [phone] 05/23/2023 12:30 PM KARLA Fernandes at Home [phone] 05/25/2023 8:10 AM [facility] Draw [facility] Laboratory Processing [phone] 06/01/2023 8:10 AM [facility] Draw [facility] Processing [phone] 06/08/2023 8:10 AM [facility] Draw [facility] Processing [phone] 06/15/2023 8:10 AM [facility] Draw [facility] Processing [phone] 06/22/2023 8:10 AM [facility] Draw [facility] Processing [phone] 06/29/2023 8:10 AM [facility] Processing [phone] 07/06/2023 8:10 AM [facility] Processing [phone] 07/06/2023 2:30 PM Berny oPwer PA-C [facility] [phone] 07/13/2023 8:00 AM [facility] Processing [phone] 07/20/2023 8:00 AM [facility] Processing [phone] 07/27/2023 8:00 AM [facility] Processing [phone] 08/03/2023 8:00 AM [facility] Processing [phone] 08/10/2023 8:00 AM [facility] Processing [phone] 08/17/2023 8:00 AM [facility] Processing [phone] 08/24/2023 8:00 AM [facility] Draw [facility] Processing [phone] 08/29/2023 3:15 PM Kalpesh Funes MD Urology [phone] 08/31/2023 8:00 AM [facility] Processing [phone] 09/07/2023 8:00 AM [facility] Processing [phone] 09/14/2023 8:00 AM [facility] Processing [phone] 09/21/2023 8:00 AM [facility] Draw [facility] Processing [phone] 09/21/2023 1:30 PM (Arrive by 1:15 PM) Nataly Stone PA-C Nephrology [phone] 09/28/2023 8:00 AM [facility] Processing [phone] 10/05/2023 8:00 AM [facility] Processing [phone] 10/12/2023 8:00 AM [facility] Processing [phone] 10/19/2023 8:00 AM [facility] Processing [phone] 11/03/2023 2:00 PM Nurse Annual Wellness [facility] Ancillary [phone] A total of 53 minutes was spent face to face (via video-based telemedicine if designated as a telemedicine visit) Subjective Subjective Is this a Telemedicine Visit? Yes, Patient location: HOME. I was not in a hospital or clinic location. After connecting through televideo, patient was verified with two unique identifiers. Patient (or authorized legal inside technical sales representative) was then informed that this was a Telemedicine visit and being conducted confidentially over secure lines. Methods to assure confidentiality were taken. Patient acknowledged consent and understanding of privacy and security of the Telemedicine visit. The patient agreed to participate. Reason For [facility] Visit: Follow-Up one month Current Concerns: Jesus Jose is a 78 year old male seen today for a [facility] provider visit. Iron def anemia--Followed by [facility] hem/onc. Had severe anemia in Aug with hgb 4.3--gets iron infusions. Parkinson's with dementia--Dr. Shannon Bowman--near [place]--does video visits. Can no longer make trip [...] January with anemiaand required transfusion. Gets labs weeks--[facility] Dr. Manuel--per the goal is to be [...] results for input(s): 25OHVITAMIND in the last 29599 hours. Hepatic panel results Recent Labs Units [...] sent to PCP (via autofax if [facility]), [facility] Care Team members,relevant Specialty Care Physicians* documented in this encounter Miscellaneous Notes * Assessment & Plan Note - HALLIE Maguire - 05/02/2023 1:16 PM EDT Associated Problem(s): Coronary artery disease involving [place] coronary artery of sp[place] heart without angina pectoris Stable, Continue metoprolo, [...] Problem(s): Iron deficiency anemia Followed closely by [facility] hematology. No identified cause of HUNTER. Weekly [...] Imaging Radiology 05/03/2023 Scheduled Telephone [facility], [address] [place] [address] 05/04/2023 Laboratory Laboratory Processing [facility], [facility] [address] [facility] [id number] 05/04/2023 Scheduled Telephone [facility], [facility] Giuliano Tafoya [address] [place] [address] 05/10/2023 Office Visit Cardiology Leah Aguilera CRNP [address] [place] [address] 05/11/2023 Laboratory Laboratory Processing [facility] Draw [address] [place] [address] 05/18/2023 Laboratory Laboratory Processing [facility] Draw [address] [place] [address] 05/23/2023 Home Visit [facility] Mayuri Grant RN [address] [place] [address] 05/25/2023 Laboratory Laboratory Processing [facility] Draw [address] [place] [address] 06/01/2023 Laboratory Laboratory Processing [facility] Draw [address] [place] [address] 06/08/2023 Laboratory Laboratory Processing [facility] Draw [address] [place] [address] 06/15/2023 Laboratory Laboratory Processing [facility], [facility] Draw [address] [place] [address] 06/22/2023 Laboratory Laboratory Processing [facility] Draw [address] [place] [address] 06/29/2023 Laboratory Laboratory Processing [facility] Draw [address] [place] [address] 07/06/2023 Laboratory Laboratory Processing [facility], [facility] Home Draw [address] [place] [address] 07/06/2023 Home Visit Ej at [facility] [place] Arrieta- [address] [place] [address] 07/13/2023 Laboratory Laboratory Processing [facility] Draw [address] [place] [address] 07/20/2023 Laboratory Laboratory Processing [facility] Draw [address] [place] [address] 07/27/2023 Laboratory Laboratory Processing [facility] Draw [address] [place] [address] 08/03/2023 Laboratory Laboratory Processing [facility], [facility] Draw [address] [place] [address] 08/10/2023 Laboratory Laboratory Processing [facility], [facility] Draw [address] [place] [address] 08/17/2023 Laboratory Laboratory Processing [facility] Draw [address] [place] [address] 08/24/2023 Laboratory Laboratory Processing [facility] Draw [address] [place] [address] 08/29/2023 Office Visit Urology Kalpesh Funes MD [address] [place] [address] 08/31/2023 Laboratory Laboratory Processing [facility] Draw [address] [place] [address] 09/07/2023 Laboratory Laboratory Processing [facility] Draw [address] [place] [address] 09/14/2023 Laboratory Laboratory Processing [facility] Draw [address] [place] [address] 09/21/2023 Laboratory Laboratory Processing [facility], [facility] Draw [address] [place] [address] 09/21/2023 Office Visit Nephrology Nataly Stone PA-C [address] [place] [address] 09/28/2023 Laboratory Laboratory Processing [facility] Draw [address] [place] [address] 10/05/2023 Laboratory Laboratory Processing [facility], [facility] Draw [address] [place] [address] 10/12/2023 Laboratory Laboratory Processing [facility] Draw [address] [place] [address] 10/19/2023 Laboratory Laboratory Processing [facility] Draw [address] [place] [address] 11/03/2023 Nurse Only Ancillary Decker, Nurse Annual Wellness Niru [address] [place] [address] Scheduled Orders Name Type Priority Associated Diagnoses [...] 023, 03/08/2019, 04/09/2014 CKD PHOS USE SMARTSET 44154 12/27/2023 12/26/2022, 0 06/21/2021 CKD HGB USE SMARTSET 79420 04/27/202404/27, 04/27/2023, 04/20/2023, Additional history exists COLONOSCOPY-EVERY [...] this encounter Medical Devices Implanted Type Area Credit Portfolio Advisor Device Identifier Shelf Expiration Date Model / Serial / Lot Lens Intraoc 22.5 - [id number] - [id number] Implanted:Qty: 1 on 05/22/2018 by Jasbir Maurer MD at OR [facility] Right: Eye [employer] 11/22/2022 [id number] / [id number] / [id number] Lens Intraoc 21.0 - [id number] - [id number] Implanted:Qty: 1 on 06/05/2018 by Jasbir Maurer MD at OR [facility] Left: Eye [employer]CH [employer]OMB 12/20/2022 [id number] / [id number] / documented as of this encounter Visit Diagnoses Diagnosis Bilateral leg edema- Primary Edema Hypertensive 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) Nonrheumatic mitral valve regurgitation Coronary artery disease involving sp[place] coronary artery of sp[place] heart without angina pectoris Paroxysmal atrial fibrillation [...] Agents on File Name Relationship Healthcare Agent [facility] p Communication Ashley Fantasma Jose Spouse Health Care Power of Attor [place] Care Teams Other Spatial Scientist Relationship Specialty Start Date End Date Michael Hinton MD [address] [place] [address] PCP - General Family Medicine 08/07/17 documented as of this encounter
--- OUTSIDE RECORDS SUMMARY | 2023-10-07 03:10 | External Medical Summary | Summary of Care ---
Author Name Unknown Organization [facility] Address [address] [place] [address] Phone [phone] Care Team Providers Care Career Services Director Name Role Phone Michael Hinton MD Primary Care Provider [phone] Reason for Visit * Reason Onset Date Comments Appointment 05/02/2023 Encounter Details Date Type Department Care Team Description 05/02/2023 Telephone [facility], [facility] [address] [place] [address] Services, Scheduling [address] [place] [address] Appointment (///) Allergies Active Allergy Reactions Severity Noted Date Comments Fabiano Inhibitors Cough 06/09/2017 Carbidopa W-Levodopa 03/17/2021 Constipation Nsaids Rash 05/17/2018 Contraindicated per operations section manager documented as of this encounter (statuses as [...] mitral valve regurgitation,Krista nary artery disease involving [place]om[place] indians[place]eastern [place] coronary artery of [place] heart without angina pectoris,Paroxysma l atrial fibrillation [...] both knees Coronary artery disease invo lving [place] indians[place] coronary artery of [place] indians[place] heart without angina pectoris 03/21/2018 Last Assessment [...] scanned document from 11/13/[address] [facility] Coronary artery disease due to [...] mRNA, LNP-s, No Pre serve, 2-Dose Series ([employer]) 11/03/2021,12/19/2020,11/28/2020 Covid-19 Ad26, Single Dose (Apsmart/J&J) 12/19/2020,11/28/2020 DTaP - Dipth/Tet/Acell Pertussis 10/24/2019 Pneumococcal [...] Miscellaneous Notes * Telephone Encounter - LARRY Randall - 05/02/2023 1:49 PM EDT Per Request via TT So Ivey she advised to schedule Venous duplex at [facility]... Called [phone] s/w Heather she advised [facility] location is not available until Monday but they can scheduleappt 05/03 at 11:30 for [facility]... Called pt lmom to confirm if 05/03 at 11:30 am at [place] is a good date and time. documented in this encounter Plan of Treatment Upcoming Encounters Date Type Specialty Care Team Description 05/03/2023 Imaging Radiology 05/03/2023 Scheduled Telephone [facility], [facility] [address] [place] [address] 05/04/2023 Laboratory Laboratory Processing [facility], [facility] Mobile Home Draw [address] [place] [address] 05/04/2023 Scheduled Telephone [facility], [facility] [address] [place] [address] 05/10/2023 Office Visit Cardiology Leah Aguilera CRNP [address] [place] [address] 05/11/2023 Laboratory Laboratory Processing [facility], [facility] Mobile Home Draw [address] [place], [place] [address] 05/18/2023 Laboratory Laboratory Processing [facility], [facility] Mobile Home Draw [address] [place] [address] 05/23/2023 Home Visit [facility] Mayuri Grant, RN [address] [place] [address] 05/25/2023 Laboratory Laboratory Processing [facility], [facility] Draw [address] [place] [address] 06/01/2023 Laboratory Laboratory Processing [facility], [facility] Draw [address] [place] [address] 06/08/2023 Laboratory Laboratory Processing [facility], [facility] Draw [address] [place] [address] 06/15/2023 Laboratory Laboratory Processing [facility], [facility] Draw [address] [place] [address] 06/22/2023 Laboratory Laboratory Processing [facility], [facility] Draw [address] [place] [address] 06/29/2023 Laboratory Laboratory Processing [facility] Draw [address] [place] [address] 07/06/2023 Laboratory Laboratory Processing [facility], [facility] Draw [address] [place] [address] 07/06/2023 Home Visit [facility] Berny Power PA-C [address] [facility] [place] [address] 07/13/2023 Laboratory Laboratory Processing [facility] Draw [address] [place] [address] 07/20/2023 Laboratory Laboratory Processing [facility] Draw [address] [place] [address] 07/27/2023 Laboratory Laboratory Processing [facility], [facility] Draw [address] [place] [address] 08/03/2023 Laboratory Laboratory Processing [facility], [facility] Draw [address] [place] [address] 08/10/2023 Laboratory Laboratory Processing [facility] Draw [address] [place] [address] 08/17/2023 Laboratory Laboratory Processing [facility], [facility] Draw [address] [place] [address] 08/24/2023 Laboratory Laboratory Processing [facility], [facility] Draw [address] [place] [address] 08/29/2023 Office Visit Urology Funes, Kalpesh Senior MD [address] [place] [address] 08/31/2023 Laboratory Laboratory Processing [facility] Draw [address] [place] [address] 09/07/2023 Laboratory Laboratory Processing [facility] Draw [address] [place] [address] 09/14/2023 Laboratory Laboratory Processing [facility], [facility] Draw [address] [place] [address] 09/21/2023 Laboratory Laboratory Processing [facility], [facility] Draw [address] [place] [address] 09/21/2023 Office Visit Nephrology Nataly Stone PA-C [address] [place] [address] 09/28/2023 Laboratory Laboratory Processing [facility], [facility] Draw [address] [place] [address] 10/05/2023 Laboratory Laboratory Processing [facility], [facility] Draw [address] [place] [address] 10/12/2023 Laboratory Laboratory Processing [facility], [facility] Mobile Home Draw [address] [place] [address] 10/19/2023 Laboratory Laboratory Processing [facility], [facility] Mobile Home Draw [address] [place] [address] 11/03/2023 Nurse Only Ancillary Jeronimo Nurse Annual Wellness Niru [address] [place] [address] Scheduled Procedures Name Priority Associated Diagnoses Date/Ti [...] 023, 03/08/2019, 04/09/2014 CKD PHOS USE SMARTSET 32818 12/27/2023 12/26/2022, 0 06/21/2021 CKD HGB USE SMARTSET 67133 04/27/202404/27, 04/27/2023, 04/20/2023, Additional history exists COLONOSCOPY-EVERY [...] this encounter Medical Devices Implanted Type Area Onion Farmer Device Identifier Shelf Expiration Date Model / Serial / Lot Lens Intraoc 22.5 - [id number] - [id number] Implanted:Qty: 1 on 05/22/2018 by Jasbir Maurer MD at OR [facility] Right: Eye [employer] 11/22/2022 [id number] / [id number] / [id number] Lens Intraoc 21.0 - [id number] - [id number] Implanted:Qty: 1 on 06/05/2018 by Jasbir Mauerr MD at OR [facility] Left: Eye [employer]OM[employer] 12/20/2022 [id number] / [id number] / documented as of this encounter Advance [...] Agents on File Name Relationship Healthcare Agent [facility] p Communication Ashley Jose Spouse Health Care Power of Attor mayela Care Teams Career Services Director Relationship Specialty Start Date End Date Michael Hinton MD [address] [place] [address] PCP - General Family Medicine 08/07/17 documented as of this encounter
--- OUTSIDE RECORDS SUMMARY | 2023-10-07 03:11 | External Medical Summary | Summary of Care ---
Author Name Unknown Organization [facility] Address [address] [place] [address] Phone [phone] Care Team Providers Care Video Recorder Mechanic Name Role Phone Michael Hinton MD Primary Care Provider [phone] Reason for Visit * Reason Onset Date Comments Appointment 05/02/2023 Encounter Details Date Type Department Care Team Description 05/02/2023 Telephone [facility], [facility] [address] [place] [address] Services, Scheduling [address] [place] [address] Appointment (///) Allergies Active Allergy Reactions Severity Noted Date Comments Fabiano Inhibitors Cough 06/09/2017 Carbidopa W-Levodopa 03/17/2021 Constipation Nsaids Rash 05/17/2018 Contraindicated per chuck wagon driver documented as of this encounter (statuses as [...] regurgitation,Krista nary artery disease involving [place] coronary artery of [place] heart without angina pectoris,Paroxysma l atrial fibrillation [...] Coronary artery disease invo lving [place] coronary artery of [place] heart without angina pectoris 03/21/2018 Last Assessment [...] scanned document from 11/13/[address] [facility] [place], [place]. 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 [...] mRNA, LNP-s, No Pre serve, 2-Dose Series ([employer]) 11/03/2021,12/19/2020,11/28/2020 Covid-19 Ad26, Single Dose (O[employer]u/J&J) 12/19/2020,11/28/2020 DTaP - Dipth/Tet/Acell Pertussis 10/24/2019 Pneumococcal [...] she advised to schedule Venous duplex at [facility]... Called [phone] s/w Heather she advised [facility] location is not available until Monday but they can scheduleappt 05/03 at 11:30 for [facility]... Called pt lmom to confirm if 05/03 at 11:30 am at [facility] is a good date and time. documented in this encounter Plan of Treatment Upcoming Encounters Date Type Specialty Care Team Description 05/03/2023 Imaging Radiology 05/04/2023 Laboratory [facility] [address] [place] [address] 05/10/2023 Office Visit Cardiology Leah Aguilera CRNP [address] [place] [address] 05/11/2023 Laboratory Laboratory Processing [facility] [address] [place] [address] 05/18/2023 Laboratory Laboratory Processing [facility] [address] [place] [address] 05/23/2023 Home Visit [facility] Mayuri Grant RN [address] [place] [address] 05/25/2023 Laboratory Laboratory Processing [facility] [address] [place] [address] 06/01/2023 Laboratory Laboratory Processing [facility] [address] [place] [address] 06/08/2023 Laboratory Laboratory Processing [facility] [address] [place] [address] 06/15/2023 Laboratory Laboratory Processing [facility] [address] [place] [address] 06/22/2023 Laboratory Laboratory Processing [facility] [address] [place] [address] 06/29/2023 Laboratory Laboratory Processing [facility] [address] [place] [address] 07/06/2023 Laboratory Laboratory Processing [facility] [address] [place] [address] 07/06/2023 [facility] [address] [place] [address] 07/13/2023 Laboratory Laboratory Processing [facility] [address] [place] [address] 07/20/2023 Laboratory Laboratory Processing [facility] [address] [place] [address] 07/27/2023 Laboratory Laboratory Processing [facility] [address] [place] [address] 08/03/2023 Laboratory Laboratory Processing [facility] [address] [place] [address] 08/10/2023 Laboratory Laboratory Processing [facility] [address] [place] [address] 08/17/2023 Laboratory Laboratory Processing [facility] [address] [place] [address] 08/24/2023 Laboratory Laboratory Processing [facility] [address] [place] [address] 08/29/2023 Office Visit Urology Kalpesh Funes MD [address] [address] 08/31/2023 Laboratory Laboratory Processing [facility] [address] [place] [address] 09/07/2023 Laboratory Laboratory Processing [facility] [address] [place] [address] 09/14/2023 Laboratory Laboratory Processing [facility] [address] [place] [address] 09/21/2023 Laboratory Laboratory Processing [facility] [address] [place] [address] 09/21/2023 Office Visit Nephrology Nataly Stone PA-C [address] [place] [address] 09/28/2023 Laboratory Laboratory Processing [facility] [address] [place] [address] 10/05/2023 Laboratory Laboratory Processing [facility] [address] [place] [address] 10/12/2023 Laboratory Laboratory Processing [facility] [place] [facility] [address] [place] [address] 10/19/2023 Laboratory Laboratory Processing [facility] [place] [facility] [address] [place] [address] 11/03/2023 Nurse Only Ancillary Nurse Jeronimo [facility] [address] [place] [address] Scheduled Procedures Name Priority Associated [...] 023, 03/08/2019, 04/09/2014 CKD PHOS USE SMARTSET 72755 12/27/2023 12/26/2022, 0 06/21/2021 CKD HGB USE SMARTSET 65216 04/27/202404/27, 04/27/2023, 04/20/2023, Additional history exists COLONOSCOPY-EVERY [...] this encounter Medical Devices Implanted Type Area Oven Drier Tender Device Identifier Shelf Expiration Date Model / Serial / Lot Lens Intraoc 22.5 - [id number] - [id number] Implanted:Qty: 1 on 05/22/2018 by Jasbir Maurer MD at OR [facility] Right: Eye [employer]OM[employer] 11/22/2022 [id number] / [id number] / [id number] Lens Intraoc 21.0 - [id number] - [id number] Implanted:Qty: 1 on 06/05/2018 by Jasbir Maurer MD at OR [facility] Left: Eye BAUSCH [employer] LOMB 12/20/2022 [id number] / [id number] / documented as of this encounter Advance [...] Care Power of Attor mayela Care Teams Video Recorder Mechanic Relationship Specialty Start Date End Date Michael Hinton MD [address] [place] [address] PCP - General Family Medicine 08/07/17 documented as of this encounter
--- OUTSIDE RECORDS SUMMARY | 2023-10-07 03:11 | External Medical Summary | Summary of Care ---
Author Name Unknown Organization [facility] Address [address] [place] [address] Phone [phone] Care Team Providers Care Manager Agriculture Name Role Phone Michael Hinton MD Primary Care Provider [phone] Reason for Referral * Ancillary Services (Within 3 days (urgent)) - Authorized Specialty Diagnoses / Procedures Referred By Contac t Referred To Contact Qa Tech Diagnoses Hypertensive 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) So Ivey, HALLIE [address] [place] [address] Referral ID Status Reason Start Date Expiration Date Visits Requested Visits Authorized [id number] Authorized Ancillary Services Required 05/02/2023 999 999 [...] on the next service day for the [facility] Home Phlebotomy does not service every geographical location on a daily basis. Contact [facility] Client Services at to find out service days for a specific location. Medical Laboratory [address] [place] [id number] Andrew Romero M.D. Director and Marble Cleaner Patient Name: Jesus Jose : 1945 Sex: male Address [address] [place] [address] Provider: Self? Michael Hinton MD? Diagnosis: R60.0 Bilateral leg edema (primary encounter diagnosis) I50.32,I25.10 Chronic diastolic 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 (HCC) I50.9 Acute on chronic congestive heart failure, unspecified heart failure type (HCC) I34.0 Nonrheumatic mitral valve regurgitation I25.10 Coronary artery disease involving [place] coronary artery of [place] heart without angina pectoris I48.0 Paroxysmal atrial [...] Team Description 05/02/2023 Telemedicine [facility], [facility] [address] [facility] [place] [address] So Ivey CRNP [address] [facility] [place] [address] Jahaira Nava [facility] Infrastructure Director [address] [place] [address] [place] [address] Bilateral leg edema*; Hypertensive 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); Nonrheumatic mitral valve regurgitation; Coronary artery disease involving [place] coronary artery of [place] heart without angina pectoris; Paroxysmal atrial fibrillation (HCC); Stage 3b chronic kidney disease (HCC); Iron deficiency anemia, unspecified iron deficiency anemia type; History of cellulitis; BPH with obstruction/lower urinary tract symptoms Allergies Active Allergy Reactions Severity Noted Date Comments Fabiano Inhibitors Cough 06/09/2017 Carbidopa W-Levodopa 03/17/2021 Constipation Nsaids Rash 05/17/2018 Contraindicated per ironer sock documented as of this encounter (statuses as [...] mitral valve regurgitation,Co ronary artery disease involving [place] coronary artery of [place] heart without angina pectoris,Paroxys mal atrial fibrillation [...] 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 ([facility]),Acute on chronic congestive heart failure, unspecified heart failure type ([facility]),Nonrheumat ic mitral valve regurgitation,Co ronary artery disease involving [place] coronary artery of [place] heart without angina pectoris,Paroxys mal atrial fibrillation (HCC),Stage 3b chronic kidney disease ([facility]) TAKE TWO TABLETS BY MOUTH EVERY DAY [...] both knees Coronary artery disease invo lving [place] coronary artery of [place] heart without angina pectoris 03/21/2018 Last Assessment [...] from 11/13/[address] [facility] [place]ary artery disease due to [...] mRNA, LNP-s, No Pre serve, 2-Dose Series ([employer] 11/03/2021,12/19/2020,11/28/2020 Covid-19 Ad26, Single Dose ([employer]/J&J) 12/19/2020,11/28/2020 DTaP - Dipth/Tet/Acell Pertussis 10/24/2019 Pneumococcal [...] from the original note were not included. [facility] Problem Oriented [facility] Provider Visit Date: 05/02/2023 Time: 11:27 PM [facility] Sub-Program: Primary Care at Home [facility] Episode Start Date: Noted: 03/03/2021 Assessment [...] valve regurgitation #4 Coronary artery disease involving [place] coronary artery of [place] heart without angina pectoris Assessment & Plan: Stable, Continue metoprolo, atorvastatin No ASA d/t history severe anemia--GI bleeding? #5 Paroxysmal atrial fibrillation (HCC) Assessment & Plan: Rate controlled -continue metoprolol succinate Not on AC d/t HUNTER and concern for bleeding #6 Stage 3b chronic kidney disease (HCC) #7 Iron deficiency anemia, unspecified iron deficiency anemia type Assessment & Plan: Followed closely by [facility] [...] duplex today or tomorrow at [facility]. DTP initiated --will recheck BMP and BNP with regularly scheduled labs . Intake to follow up daily x 48 with calls. RNCM scheduled in May. [facility] provider visit scheduled in Jun. Pt and agreeable to plan. Check-out note: [facility] intake--please call pt daily for next 48 hours to follow up DTP. Scheduled appointments in the next 60 days: Future Appointments-next 60 days Date/Time Provider Specialty Dept Phone 05/02/2023 11:00 AM Jahaira Nava, [facility] Health Infrastructure Director; HALLIE [facility] at Home [phone] 05/04/2023 8:10 AM [facility] Laboratory Processing [phone] 05/10/2023 3:30 PM (Arrive by 3:15 PM) HALLIE Marshall Cardiology [phone] 05/11/2023 8:10 AM [facility] Laboratory Processing [phone] 05/18/2023 8:10 AM [facility] Laboratory Processing [phone] 05/23/2023 12:30 PM KARLA Fernandes at Home [phone] 05/25/2023 8:10 AM [facility] Laboratory Processing [phone] 06/01/2023 8:10 AM [facility] Laboratory Processing [phone] 06/08/2023 8:10 AM [facility] Laboratory Processing [phone] 06/15/2023 8:10 AM [facility] Laboratory Processing [phone] 06/22/2023 8:10 AM [facility] Laboratory Processing [phone] 06/29/2023 8:10 AM [facility] Laboratory Processing [phone] 07/06/2023 8:10 AM [facility] Laboratory Processing [phone] 07/06/2023 2:30 PM Berny Power PA-C [facility] [phone] 07/13/2023 8:00 AM [facility] Laboratory Processing [phone] 07/20/2023 8:00 AM [facility] Laboratory Processing [phone] 07/27/2023 8:00 AM [facility] Laboratory Processing [phone] 08/03/2023 8:00 AM [facility] Laboratory Processing [phone] 08/10/2023 8:00 AM [facility] Laboratory Processing [phone] 08/17/2023 8:00 AM [facility] Laboratory Processing [phone] 08/24/2023 8:00 AM [facility] Laboratory Processing [phone] 08/29/2023 3:15 PM Kalpesh Funes MD Urology [phone] 08/31/2023 8:00 AM [facility] Laboratory Processing [phone] 09/07/2023 8:00 AM [facility] Laboratory Processing [phone] 09/14/2023 8:00 AM [facility] Laboratory Processing [phone] 09/21/2023 8:00 AM [facility] Laboratory Processing [phone] 09/21/2023 1:30 PM (Arrive by 1:15 PM) Nataly Stone PA-C Nephrology [phone] 09/28/2023 8:00 AM [facility] Laboratory Processing [phone] 10/05/2023 8:00 AM [facility] Laboratory Processing [phone] 10/12/2023 8:00 AM [facility] Laboratory Processing [phone] 10/19/2023 8:00 AM [facility] Laboratory Processing [phone] 11/03/2023 2:00 PM Nurse Annual Wellness [facility] Ancillary [phone] A total of 53 minutes was spent face to face (via video-based telemedicine if designated as a telemedicine visit) Subjective Subjective Is this a Telemedicine Visit? Yes, Patient location: HOME. I was not in a hospital or clinic location. After connecting through televideo, patient was verified with two unique identifiers. Patient (or authorized legal business office representative) was then informed that this was a Telemedicine visit and being conducted confidentially over secure lines. Methods to assure confidentiality were taken. Patient acknowledged consent and understanding of privacy and security of the Telemedicine visit. The patient agreed to participate. Reason For [facility] Visit: Follow-Up one month Current Concerns: Jesus Jose is a 78 year old male seen today for a [facility] provider visit. Iron def anemia--Followed by [facility] hem/onc. Had severe anemia in Aug with hgb 4.3--gets iron infusions. Parkinson's with dementia--Dr. Shannon Bowman--near [place]--does video visits. Can no longer make trip [...] January with anemiaand required transfusion. Gets labs weeks--[facility] Dr. Manuel--per the goal is [...] results for input(s): 25OHVITAMIND in the last 23858 hours. Hepatic panel results Recent Labs Units [...] sent to PCP (via autofax if [facility]), [facility] Health Care Team members,relevant Specialty Care Physicians* documented in this encounter Miscellaneous Notes * Assessment & Plan Note - HALLIE Maguire - 05/02/2023 1:16 PM EDT Associated Problem(s): Coronary artery disease involving [place] coronary artery of [place] heart without angina pectoris Stable, Continue metoprolo, [...] Problem(s): Iron deficiency anemia Followed closely by [facility] hematology. [...] Care Team Description 05/04/2023 Laboratory Laboratory Processing [facility], [facility] [address] [facility] [id number] 05/10/2023 Office Visit Cardiology [facility]era [facility] [address] [facility] [address] 05/11/2023 Laboratory Laboratory Processing [facility] [address] [place] [address] 05/18/2023 Laboratory Laboratory Processing [facility] [address] [place] [address] 05/23/2023 Home Visit [facility] Mayuri Grant RN [address] [place] [address] 05/25/2023 Laboratory Laboratory Processing [facility] [address] [place] [address] 06/01/2023 Laboratory Laboratory Processing [facility] [address] [place] [address] 06/08/2023 Laboratory Laboratory Processing [facility] [address] [place] [address] 06/15/2023 Laboratory Laboratory Processing [facility] [address] [place] [address] 06/22/2023 Laboratory Laboratory Processing [facility] [address] [place] [address] 06/29/2023 Laboratory Laboratory Processing [facility] [address] [place] [address] 07/06/2023 Laboratory Laboratory Processing [facility] [address] [place] [address] 07/06/2023 Home Visit [facility] Berny Power PA-C [address] [place] [address] 07/13/2023 Laboratory Laboratory Processing [facility] [address] [place] [address] 07/20/2023 Laboratory Laboratory Processing [facility] [address] [place] [address] 07/27/2023 Laboratory Laboratory Processing [facility], [facility] [address] [place] [address] 08/03/2023 Laboratory Laboratory Processing [facility], [facility] [address] [place] [address] 08/10/2023 Laboratory Laboratory Processing [facility], [facility] [address] [place] [address] 08/17/2023 Laboratory Laboratory Processing [facility] [address] [place] [address] 08/24/2023 Laboratory Laboratory Processing [facility] [address] [place] [address] 08/29/2023 Office Visit Urology Funes, Kalpesh Senior MD [address] [address] 08/31/2023 Laboratory Laboratory Processing [facility] [address] [place] [address] 09/07/2023 Laboratory Laboratory Processing [facility] [address] [place] [address] 09/14/2023 Laboratory Laboratory Processing [facility], [facility] [address] [place] [address] 09/21/2023 Laboratory Laboratory Processing [facility], [facility] [address] [place] [address] 09/21/2023 Office Visit Nephrology Nataly Stone PA-C [address] [place] [address] 09/28/2023 Laboratory Laboratory Processing [facility], [facility] [address] [place] [address] 10/05/2023 Laboratory Laboratory Processing [facility], [facility] [address] [place] [address] 10/12/2023 Laboratory Laboratory Processing [facility], [facility] [address] [place] [address] 10/19/2023 Laboratory Laboratory Processing [facility], [facility] [address] [place] [address] 11/03/2023 Nurse Only Ancillary Nurse Jeronimo [facility] N[facility] [address] [place] [address] Scheduled Orders Name Type Priority Associated Diagnoses [...] 023, 03/08/2019, 04/09/2014 CKD PHOS USE SMARTSET 38400 12/27/2023 12/26/2022, 0 06/21/2021 CKD HGB USE SMARTSET 21454 04/27/202404/27, 04/27/2023, 04/20/2023, Additional history exists COLONOSCOPY-EVERY [...] this encounter Medical Devices Implanted Type Area Business Systems Analyst Device Identifier Shelf Expiration Date Model / Serial / Lot Lens Intraoc 22.5 - [id number] - [id number] Implanted:Qty: 1 on 05/22/2018 by Jasbir Maurer MD at OR [facility] Right: Eye [employer] 11/22/2022 [id number] / [id number] / [id number] Lens Intraoc 21.0 - [id number] - [id number] Implanted:Qty: 1 on 06/05/2018 by Jasbir Maurer MD at OR [facility] Left: Eye [employer] LOMB 12/20/2022 [id number] / [id number] / documented as of this encounter Visit Diagnoses Diagnosis Bilateral leg edema- Primary Edema Hypertensive 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) Nonrheumatic mitral valve regurgitation Coronary artery disease involving [place] coronary artery of [place] heart without angina pectoris Paroxysmal atrial fibrillation [...] Agents on File Name Relationship Healthcare Agent Cesar Jose Spouse Health Care Power of Attor mayela Care Teams Manager Agriculture Relationship Specialty Start Date End Date Michael Hinton MD [address] [place] [address] PCP - General Family Medicine 08/07/17 documented as of this encounter
--- OUTSIDE RECORDS SUMMARY | 2023-10-07 03:11 | External Medical Summary | Summary of Care ---
Author Name Unknown Organization [facility] Address [address] [place] [id number] Phone [phone] Care Team Providers Care Boring Mill Operator Name Role Phone Michael Hinton MD Primary Care Provider [phone] Reason for Referral * Ancillary Services (Within 3 days (urgent)) - Authorized Specialty Diagnoses / Procedures Referred By Contac t Referred To Contact Hand Glove Cleaner Diagnoses Hypertensive 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) So Ivey, HALLIE [address] [place] [address] Referral ID Status Reason Start Date Expiration Date Visits Requested Visits Authorized [id number] Authorized Ancillary Services Required 05/02/2023 999 999 [...] the next service day for the [facility] Home Phlebotomy does not service every geographical location on a daily basis. Contact [facility] Client Services at to find out service days for a specific location. Medical Laboratory [address] [place] [id number] Andrew Romero M.D. Director and Wealth Management Manager Patient Name: Jesus Jose : 1945 Sex: male Address [address] [place] [address] Provider: Self? Michael Hinton MD? Diagnosis: R60.0 Bilateral leg edema (primary encounter diagnosis) I50.32,I25.10 Chronic diastolic 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 (HCC) I50.9 Acute on chronic congestive heart failure, unspecified heart failure type (HCC) I34.0 Nonrheumatic mitral valve regurgitation I25.10 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 angina pectoris I48.0 Paroxysmal atrial [...] Team Description 05/02/2023 Telemedicine [facility], [facility] [address] [facility] [place] [address] So Ivey CRNP [address] [facility] [place] [address] Jahaira Nava [facility] Prem[facility] Operator Concentrate [address] [place] [address] [place] [address] Bilateral leg edema*; Hypertensive 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); Nonrheumatic mitral valve regurgitation; 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 angina pectoris; Paroxysmal atrial fibrillation (HCC); Stage 3b chronic kidney disease (HCC); Iron deficiency anemia, unspecified iron deficiency anemia type; History of cellulitis; BPH with obstruction/lower urinary tract symptoms Allergies Active Allergy Reactions Severity Noted Date Comments Fabiano Inhibitors Cough 06/09/2017 Carbidopa W-Levodopa 03/17/2021 Constipation Nsaids Rash 05/17/2018 Contraindicated per sealer sander documented as of this encounter (statuses as [...] mitral valve regurgitation,Co ronary artery disease involving teller coronary artery of teller heart without angina pectoris,Paroxys mal atrial fibrillation [...] 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 ([facility]),Acute on chronic congestive heart failure, unspecified heart failure type ([facility]),Nonrheumat ic mitral valve regurgitation,Co ronary artery disease involving teller coronary artery of teller heart without angina pectoris,Paroxys mal atrial fibrillation (HCC),Stage 3b chronic kidney disease ([facility]) TAKE TWO TABLETS BY MOUTH EVERY [...] both knees Coronary artery disease invo lving teller coronary artery of teller heart without angina pectoris 03/21/2018 Last Assessment [...] mRNA, LNP-s, No Pre serve, 2-Dose Series (Car Throttle) 11/03/2021,12/19/2020,11/28/2020 Covid-19 Ad26, Single Dose (Haload/J&J) 12/19/2020,11/28/2020 DTaP - Dipth/Tet/Acell Pertussis 10/24/2019 Pneumococcal [...] from the original note were not included. 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 #5 Paroxysmal atrial fibrillation (HCC) Assessment & Plan: Rate controlled -continue metoprolol succinate Not on AC d/t HUNTER and concern for bleeding #6 Stage 3b chronic kidney disease (HCC) #7 Iron deficiency anemia, unspecified iron deficiency anemia type Assessment & Plan: [facility] stat BLE duplex today or tomorrow at [facility]. DTP initiated --will recheck BMP and BNP with regularly scheduled labs . Intake to follow up daily x 48 with calls. RNCM scheduled in May. [facility] provider visit scheduled in Jun. Pt and agreeable to plan. Check-out note: [facility] intake--please call pt daily for next 48 hours to follow up DTP. Scheduled appointments in the next 60 days: Future Appointments-next 60 days Date/Time Provider Specialty Dept Phone 05/02/2023 11:00 AM Jahaira Nava, [facility] Health Premix Operator Concentrate; HALLIE [facility] at Home [phone] 05/04/2023 8:10 AM [facility] Laboratory Processing [phone] 05/10/2023 3:30 PM (Arrive by 3:15 PM) HALLIE [facility] [phone] 05/11/2023 8:10 AM [facility] Processing [phone] 05/18/2023 8:10 AM [facility] Laboratory Processing [phone] 05/23/2023 12:30 PM KARLA Fernandes at Home [phone] 05/25/2023 8:10 AM [facility] Draw [facility] Laboratory Processing [phone] 06/01/2023 8:10 AM [facility] Draw [facility] Laboratory Processing [phone] 06/08/2023 8:10 AM [facility] Draw [facility] Laboratory Processing [phone] 06/15/2023 8:10 AM [facility] Draw [facility] Laboratory Processing [phone] 06/22/2023 8:10 AM [facility] Draw [facility] Laboratory Processing [phone] 06/29/2023 8:10 AM [facility] Processing [phone] 07/06/2023 8:10 AM [facility] Processing [phone] 07/06/2023 2:30 PM Berny Power PA-C [facility] [phone] 07/13/2023 8:00 AM [facility] Processing [phone] 07/20/2023 8:00 AM [facility] Processing [phone] 07/27/2023 8:00 AM [facility] Processing [phone] 08/03/2023 8:00 AM [facility] Processing [phone] 08/10/2023 8:00 AM [facility] Processing [phone] 08/17/2023 8:00 AM [facility] Processing [phone] 08/24/2023 8:00 AM [facility] Processing [phone] 08/29/2023 3:15 PM Kalpesh Funes MD Urology [phone] 08/31/2023 8:00 AM [facility] Processing [phone] 09/07/2023 8:00 AM [facility] Processing [phone] 09/14/2023 8:00 AM [facility] Processing [phone] 09/21/2023 8:00 AM [facility] Processing [phone] 09/21/2023 1:30 PM (Arrive by 1:15 PM) Nataly Stone PA-C Nephrology [phone] 09/28/2023 8:00 AM [facility] Processing [phone] 10/05/2023 8:00 AM [facility] Processing [phone] 10/12/2023 8:00 AM [facility] Processing [phone] 10/19/2023 8:00 AM [facility] Processing [phone] 11/03/2023 2:00 PM Nurse Annual Wellness [facility] Ancillary [phone] A total of 53 minutes was spent face to face (via video-based telemedicine if designated as a telemedicine visit) Subjective Subjective Is this a Telemedicine Visit? Yes, Patient location: HOME. I was not in a hospital or clinic location. After connecting through televideo, patient was verified with two unique identifiers. Patient (or authorized legal sales representative livestock) was then informed that this was a Telemedicine visit and being conducted confidentially over secure lines. Methods to assure confidentiality were taken. Patient acknowledged consent and understanding of privacy and security of the Telemedicine visit. The patient agreed to participate. Reason For [facility] Visit: Follow-Up one month Current Concerns: Jesus Jose is a 78 year old male seen today for a [facility] provider visit. Iron def anemia--Followed by [facility] hem/onc. Had severe anemia in Aug with hgb 4.3--gets iron infusions. Parkinson's with dementia--Dr. Shannon Bowman--near [place]--does video visits. Can no longer make trip [...] with anemiaand required transfusion. Gets labs weeks--[facility] Dr. Manuel--per the goal is to be [...] results for input(s): 25OHVITAMIND in the last 82017 hours. 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 Stable, Continue metoprolo, [...] Problem(s): Iron deficiency anemia [facility] [...] 05/03/2023 Imaging Radiology 05/04/2023 Laboratory Laboratory Processing [facility] Mobile Home Draw [address] [facility] [place] [address] 05/10/2023 Office Visit Cardiology [facility]ilera CRNP [address] [facility] [address] 05/11/2023 Laboratory Laboratory Processing [facility] Draw [address] [place] [address] 05/18/2023 Laboratory Laboratory Processing [facility] Draw [address] [place] [address] 05/23/2023 Home Visit [facility] Mayuri Grant RN [address] [place] [address] 05/25/2023 Laboratory Laboratory Processing [facility] Draw [address] [place] [address] 06/01/2023 Laboratory Laboratory Processing [facility] Draw [address] [place] [address] 06/08/2023 Laboratory Laboratory Processing [facility] Draw [address] [place] [address] 06/15/2023 Laboratory Laboratory Processing [facility] Draw [address] [place] [address] 06/22/2023 Laboratory Laboratory Processing [facility] Draw [address] [place] [address] 06/29/2023 Laboratory Laboratory Processing [facility] Draw [address] [place] [address] 07/06/2023 Laboratory Laboratory Processing [facility] Mobile [facility] Draw [address] [place] [address] 07/06/2023 Home Visit [facility] [place] Arrieta- [address] [place] [address] 07/13/2023 Laboratory Laboratory Processing [facility] Draw [address] [place] [address] 07/20/2023 Laboratory Laboratory Processing [facility] Draw [address] [place] [address] 07/27/2023 Laboratory Laboratory Processing [facility], [facility] Draw [address] [place] [address] 08/03/2023 Laboratory Laboratory Processing [facility] Draw [address] [place] [address] 08/10/2023 Laboratory Laboratory Processing [facility] Draw [address] [place] [address] 08/17/2023 Laboratory Laboratory Processing [facility] Draw [address] [place] [address] 08/24/2023 Laboratory Laboratory Processing [facility] Draw [address] [place] [address] 08/29/2023 Office Visit Urology Kalpesh Funes MD [address] [address] 08/31/2023 Laboratory Laboratory Processing [facility] Draw [address] [place] [address] 09/07/2023 Laboratory Laboratory Processing [facility] Draw [address] [place] [address] 09/14/2023 Laboratory Laboratory Processing [facility] Draw [address] [place] [address] 09/21/2023 Laboratory Laboratory Processing [facility] Draw [address] [place] [address] 09/21/2023 Office Visit Nephrology Nataly Stone PA-C [address] [place] [address] 09/28/2023 Laboratory Laboratory Processing [facility] Draw [address] [place] [address] 10/05/2023 Laboratory Laboratory Processing [facility] Draw [address] [place] [address] 10/12/2023 Laboratory Laboratory Processing [facility], [facility] Draw [address] [place] [address] 10/19/2023 Laboratory Laboratory Processing [facility], [facility] Mobile [facility] Draw [address] [place] [address] 11/03/2023 Nurse Only Ancillary Jeronimo, Nurse Annual Wellness Nir[facility] [address] [place] [address] Scheduled Orders Name Type Priority Associated Diagnoses [...] 07/07/2020, Additional history exists GFR 10/04/2023 04/04/2023, 2 02/2023, 03/09/2023, Additional history exists HbA1c 10/12/2023 04/12/2023, 03/0 03/2023, 03/22/2022, Additional history exists DIABETES-EYE EXAM 11/01/2023 11/01/2022, , 08/04/2011, Additional history exists Depression Screening, Annual for Pts 12 and Over 11/02/2023 11/02/2022 Albumin/Creatinine Ratio 12/27/2023 023, 03/08/2019, 04/09/2014 CKD PHOS USE SMARTSET 30105 12/27/2023 12/26/2022, 0 06/21/2021 CKD HGB USE SMARTSET 96915 04/27/202404/27, 04/27/2023, 04/20/2023, Additional history exists COLONOSCOPY-EVERY [...] this encounter Medical Devices Implanted Type Area Bridge Manager Device Identifier Shelf Expiration Date Model / Serial / Lot Lens Intraoc 22.5 - [id number] - [id number] Implanted:Qty: 1 on 05/22/2018 by Jasbir Maurer MD at OR [facility] Right: Eye [employer] 11/22/2022 [id number] / [id number] / [id number] Lens Intraoc 21.0 - [id number] - [id number] Implanted:Qty: 1 on 06/05/2018 by Jasbir Maurer MD at OR [facility] Left: Eye [employer]OM[employer] 12/20/2022 [id number] / [id number] / documented as of this encounter Visit Diagnoses Diagnosis Bilateral leg edema- Primary Edema Hypertensive 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) Nonrheumatic mitral valve regurgitation 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 angina pectoris Paroxysmal atrial fibrillation [...] Care Power of Attor mayela Care Teams Boring Mill Operator Relationship Specialty Start Date End Date Michael Hinton MD [address] [place] [address] PCP - General Family Medicine 08/07/17 documented as of this encounter
--- OUTSIDE RECORDS SUMMARY | 2023-10-07 03:12 | External Medical Summary | Summary of Care ---
Author Name Unknown Organization [facility] Address [address] [facility] [place] [address] Phone [phone] Care Team Providers Care Hospital Receptionist Name Role Phone Michael Hinton MD Primary Care Provider [phone] Reason for Visit * Reason Comments Medication Refill Encounter Details Date Type Department Care Team Description 04/30/2023 Refill Dermatology [facility] [place] [address] [place] [address] Jeanette Urban PA-C [address] [place] [phone] Inflamed seborrheic keratosis* Allergies Active Allergy Reactions Severity Noted Date Comments Fabiano Inhibitors Cough 06/09/2017 Carbidopa W-Levodopa 03/17/2021 Constipation Nsaids Rash 05/17/2018 Contraindicated per collaborative teacher documented as of this encounter (statuses as of 05/01/2023) Medications Medication Sig Dispensed Refills Start Date [...] a day 400 Each 3 08/29/2018 Active escitalopram (LEXAPRO) 20 MG Tablet Take 1 Tab by mouth daily. 90 Tab 3 11/15/2019 Active Amantadine HCl 100 MG Oral Capsule (Symmetrel)Indica tions:Primary parkinsonism (HCC) Take 1 Cap by mouth 2 times a day. 60 Cap 0 03/04/2021 Active Additional Information Patient taking differently:100 mg OralONCE, One cap once a day, Reported on 11/29/2022 Donepezil HCl 5 MG Oral Tablet (Aricept)Indicati ons: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HCC),Hallucinati ons Take 1 Tab by mouth at bedtime. Take with largest meal of the day. 30 Tab 0 03/04/2021 Active Additional Information Patient taking differently: 10 mgOral HS, Take with largest meal of the day., Reported on 11/29/2022 Metoprolol Succinate ER 25 MG Oral Tablet Extended Release 24 Hour (toPROL XL) Take 1 Tablet by mouth in the morning. 0 06/21/2021 Active Dupixent 300 MG/2ML Subcutaneous Solution Prefilled [...] 90 Tablet 3 04/15/2023 04/14/20 24 Active Torsemide 20 MG Oral Tablet (Demadex)Indicati ons:Chronic diastolic 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 ([facility]),Acute on chronic congestive heart failure, unspecified heart failure type ([facility]),Nonrheumati c mitral valve regurgitation,Cor onary artery disease involving koi coronary artery of koi heart without angina pectoris,Paroxysm al atrial fibrillation ([facility]),Stage 3b chronic kidney disease ([facility]) TAKE TWO TABLETS BY MOUTH EVERY DAY IN THE MORNING 180 Tablet 3 03/22/2023 03/21/20 24 Active Metoprolol Succinate ER 25 MG Oral Tablet Extended Release 24 Hour (toPROL XL) TAKE ONE TABLET BY MOUTH EVERY MORNING 90 Tablet 3 03/21/2023 03/20/20 24 Active buPROPion HCl ER (XL) 150 MG Oral Tablet Extended Release 24 Hour (Wellbutrin XL) TAKE ONE TABLET BY MOUTH EVERY DAY IN THE MORNING 100 Tablet 3 03/17/2023 03/16/20 24 Active Escitalopram Oxalate 10 MG Oral Tablet (Lexapro) TAKE ONE TABLET BY MOUTH EVERY DAY 90 Tablet 3 02/23/2023 02/17/20 24 Active Amantadine HCl 100 MG Oral Capsule (Symmetrel) TAKE ONE CAPSULE BY MOUTH EVERY DAY WITH LUNCH 90 Capsule 3 02/16/2023 02/16/20 24 Active Donepezil HCl 10 MG Oral Tablet (Aricept) TAKE ONE TABLET BY MOUTH EVERY DAY IN THE EVENING 90 Tablet 3 02/16/2023 02/16/20 24 Active Donepezil HCl 5 MG Oral Tablet (Aricept) TAKE ONE TABLET BY MOUTH EVERY DAY IN THE MORNING 90 Tablet 3 02/16/2023 02/16/20 24 Active Escitalopram Oxalate 20 MG Oral Tablet (Lexapro) TAKE ONE TABLET BY MOUTH EVERY MORNING 90 Tablet 3 01/23/2023 01/23/20 24 Active Amantadine HCl 100 MG Oral Capsule (Symmetrel) TAKE ONE CAPSULE BY MOUTH EVERY DAY WITH LUNCH 90 Capsule 1 01/02/2023 01/02/20 24 Active Dutasteride 0.5 MG Oral Capsule (Avodart) TAKE ONE CAPSULE BY MOUTH EVERY MORNING 90 Capsule 3 12/13/2022 12/13/19 24 Active metFORMIN HCl ER 500 MG Oral Tablet Extended Release 24 Hour (Glucophage XR) TAKE ONE TABLET BY MOUTH EVERY DAY 90 Tablet 1 10/20/2022 10/20/20 23 Active Donepezil HCl 10 MG Oral Tablet (Aricept) TAKE ONE TABLET BY MOUTH EVERY NIGHT 90 Tablet 3 08/23/2022 08/23/20 23 Active Donepezil HCl 5 MG Oral Tablet (Aricept) TAKE ONE TABLET BY MOUTH EVERY MORNING 90 Tablet 3 08/23/2022 08/23/20 23 Active Furosemide 40 MG Oral Tablet (Lasix) TAKE ONE TABLET BY MOUTH TWO TIMES WEEKLY - TAKE MONDAY & MONDAY INSTEAD OF TRIAMTERENE-HCTZ 30 Tablet 3 05/19/2022 05/19/20 23 Active Atorvastatin Calcium 40 MG Oral Tablet (Lipitor)Indicati ons:Dyslipidemia, goal LDL below 70 TAKE ONE TABLET BY MOUTH EVERY DAY 90 Tablet 0 05/03/2022 05/03/20 23 Active Betamethasone Dipropionate 0.05 % External OintmentIndicatio ns:Inflamed seborrheic keratosis APPLY TO SKIN LESIONS AND SCALP LESIONS UP TO TWO TIMES A DAY FOR NO LONGER THAN 2 WEEKS AT A TIME FOR ITCH. (THEN TAKE A 2 WEEK BREAK) 45 g 2 05/01/2023 04/30/20 24 Active Betamethasone Dipropionate 0.05 % External Ointment APPLY TO SKIN LESIONS AND SCALP LESIONS UP TO TWO TIMES A DAY FOR NO LONGER THAN 2 WEEKS AT A TIME FOR ITCH. 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 02/27/2023 Overview: Per CKD protocol Flexural atopic dermatitis 11/29/2022 Last Assessment & Plan: Continue Dupixent Atrial fibrillation 10/10/2022 Last Assessment & Plan: Rate controlled -continue metoprolol succinate -not on anticoagulation secondary to GI bleed/anemia in the past Urge incontinence 08/24/2022 Hematuria, gross 08/24/2022 Overweight (BMI 25.0-29.9) 07/13/2022 Chronic diastolic heart failure secondar y to coronary artery disease 07/13/2022 Hypertensive heart and kidne y disease with chronic diastolic congestive heart failure and stage 3b chronic kidney disease 05/16/2022 Last Assessment & Plan: Current Status: "Stable" for patient / At or near baseline Degree of Condition Awareness: Demonstrates very good awareness of condition, disease course, and prognosis "RED FLAG" HF Symptoms: o Leg Swelling (Examples: "I can't wear certain socks or shoes", "My pants feel tight") o Increased dyspnea on exertion (Example: "I can't walk to the kitchen or up the stairs") o Increased shortness of breath at rest (Example: "I struggle to breathe even when watching TV") Current Heart Failure Classifications: o With less than ordinary activity ([employer] CLASS III) Diagnostic Review: Recent Labs Units 03/23/23 1149 03/16/23 0908 03/09/23 1030 BNP (NT-PRO-BNP) - [facility] pg/mL -- -- 585* ESTIMATED GLOMERULAR FILTRATION RATE - [facility] mL/min -- 41* 47* HGB - [facility] g/dL 8.8* 8.5* 9.0* Medication Regimen: o Beta Sheldon Therapy: Metoprolol Succinate (ER) o FABIANO Inhibitor/ARB Therapy: No FABIANO/ARB/ARNI secondary to: intolerance o Diuretic therapy: Torsemide Self - Management Plan o Double dose of Torsemide for 3 days Exacerbation Plan o BMP Dry weight around 177 lb At baseline Iron deficiency anemia 07/28/2021 Last Assessment & Plan: Received blood transfusion 03/24 -will follow-up CBC on 03/30 -continue ferrous sulfate. Dose once daily. Med list updated Type 2 diabetes mellitus wit h diabetic [...] tract symptoms 01/02/2019 Last Assessment & Plan: Flomax discontinued. Finasteride started. Med list updated HTN, goal below 130/80 07/26/2018 Type 2 diabetes mellitus with hemoglobin A1c goal of less than 8.0% 07/26/2018 Overview: Last hgba1c 5.5 in 02/2022 -continue metformin Primary osteoarthritis of both knees Coronary artery disease invo lving koi coronary artery of koi heart without angina pectoris 03/21/2018 Last Assessment & Plan: Stable. No angina. - continue metoprolol, atorvastatin. Not on aspirin due to GI bleeding and anemia. Fabiano intolerance. Cervical spinal stenosis 08/18/2017 FABIANO (generalized anxiety disorder) 08/18 Last Assessment & Plan: Symptoms stable -continue Lexapro Primary parkinsonism 08/18/2017 Last Assessment & Plan: Baseline -Continue amantadine -order for transport chair S/P CABG x 3 08/18/2017 FABIANO inhibitor intolerance 12/04/2015 Dyslipidemia 08/09/2002 documented as of this encounter (statuses as of 05/01/2023) Resolved Problems Problem Noted Date Resolved Date [...] scanned document from 11/13/[address] bains, [facility] [place]. Coronary [...] as of this encounter (statuses as of 05/01/2023) Immunizations Name Administration Dates Next Due COVID-19 [...] Miscellaneous Notes * Telephone Encounter - April Davis MD - 05/01/2023 9:35 AM EDTSigned Prescriptions: Disp Refills Betamethasone Dipropionate 0.05 % External*45 g 2 Sig: APPLY TO SKIN LESIONS AND SCALP LESIONS UP TO TWO TIMES A DAY FOR NO LONGER THAN 2 WEEKS AT A TIME FOR ITCH. (THEN TAKE A 2 WEEK BREAK) Authorizing Provider: APRIL DAVIS * Telephone Encounter - Ailyn Dennison LPN - 05/01/2023 8:41 AM EDTPending Prescriptions: Disp Refills Betamethasone Dipropionate 0.05 % External*45 g 2 Sig: APPLY TO SKIN LESIONS AND SCALP LESIONS UP TO TWO TIMES A DAY FOR NO LONGER THAN 2 WEEKS AT A TIME FOR ITCH. (THEN TAKE A 2 WEEK BREAK) documented in this encounter Plan of Treatment Upcoming Encounters Date Type Specialty Care Team Description 05/02/2023 Telemedicine [facility] So Ivey CRNP [address] [place] [address] Jahaira Nava, [facility] [address] [place] [address] 05/04/2023 Laboratory [facility] [address] [place] [address] 05/10/2023 Office Visit Cardiology Leah Aguilera CRNP [address] [place] [address] 05/11/2023 Laboratory [facility] [address] [place] [address] 05/18/2023 Laboratory [facility] [address] [place] [address] 05/23/2023 Home Visit [facility] Mayuri Grant RN [address] [place] [address] 05/25/2023 Laboratory [facility] [address] [place] [address] 06/01/2023 Laboratory [facility] [address] [place] [address] 06/08/2023 Laboratory Laboratory [facility] [address] [place] [address] 06/15/2023 Laboratory [facility] [address] [place] [address] 06/22/2023 Laboratory [facility] [address] [place] [address] 06/29/2023 Laboratory [facility] [address] [place] [address] 07/06/2023 Laboratory [facility] [address] [place] [address] 07/06/2023 [facility] [address] [place] [address] 07/13/2023 Laboratory [facility] [address] [place] [address] 07/20/2023 Laboratory Laboratory [facility] [address] [place] [address] 07/27/2023 Laboratory [facility] [address] [place] [address] 08/03/2023 Laboratory Laboratory [facility] [address] [place] [address] 08/10/2023 Laboratory Laboratory [facility] [address] [place] [address] 08/17/2023 Laboratory [facility] [address] [place] [address] 08/24/2023 Laboratory [facility] [address] [place] [address] 08/29/2023 Office Visit Urology Funes, Kalpesh Senior MD [address] [address] 08/31/2023 Laboratory [facility] [address] [place] [address] 09/07/2023 Laboratory [facility] [address] [place] [address] 09/14/2023 Laboratory [facility] [address] [place] [address] 09/21/2023 Laboratory [facility] [address] [place] [address] 09/21/2023 Office Visit Nephrology Nataly Stone PA-C [address] [place] [address] 09/28/2023 Laboratory [facility] [address] [place] [address] 10/05/2023 Laboratory [facility] [address] [place] [address] 10/12/2023 Laboratory [facility] [address] [place] [address] 10/19/2023 Laboratory Laboratory [facility] [address] [place] [address] 11/03/2023 Nurse Only Ancillary Nurse [facility] [address] [place] [id number] Scheduled Procedures Name Priority Associated Diagnoses Date/Ti me COLONOSCOPY FLEXIBLE PROXIMAL DIAGNOSTIC Recall History of colon polyps Health Maintenance Due Date Last Done Comments B-12 1963 Hepatitis C Screening 1963 DIABETES-FOOT EXAM 03/27/2021 [...] 023, 03/08/2019, 04/09/2014 CKD PHOS USE SMARTSET 00306 12/27/2023 12/26/2022, 0 06/21/2021 CKD HGB USE SMARTSET 41707 04/27/202404/27, 04/27/2023, 04/20/2023, Additional history exists COLONOSCOPY-EVERY [...] this encounter Medical Devices Implanted Type Area Mri Technician Device Identifier Shelf Expiration Date Model / Serial / Lot Lens Intraoc 22.5 - [id number] - [id number] Implanted:Qty: 1 on 05/22/2018 by Jasbir Maurer MD at OR [facility] Right: Eye [employer] 11/22/2022 [id number] / [id number] / [id number] Lens Intraoc 21.0 - [id number] - [id number] Implanted:Qty: 1 on 06/05/2018 by Jasbir Maurer MD at OR [facility] Left: Eye [employer] 12/20/2022 [id number] / [id number] / documented as of this encounter Visit Diagnoses Diagnosis Inflamed seborrheic keratosis- Primary documented in this encounter Advance Directives [...] Agents on File Name Relationship [facility] Jose Spouse Health Care Power of Attor mayela Care Teams Hospital Receptionist Relationship Specialty Start Date End Date Michael Hinton MD [address] [place] [address] PCP - General Family Medicine 08/07/17 documented as of this encounter
--- OUTSIDE RECORDS SUMMARY | 2023-10-07 03:12 | External Medical Summary | Summary of Care ---
Author Name Unknown Organization [facility] Address [address] [place] [address] Phone [phone] Care Team Providers Care Cinema Or Theatre Manager Name Role Phone Michael Hinton MD Primary Care Provider [phone] Reason for Visit * Reason Onset Date Comments Advice 04/18/2023 Prostate surgery Encounter Details Date Type Department Care Team Description 04/18/2023 Telephone NephrologyMelissa 200 [facility] [place] [address] Hiral Marie MD [facility] [address] Advice (Prostate surgery) Allergies Active Allergy Reactions Severity Noted Date Comments Afbiano Inhibitors Cough 06/09/2017 Carbidopa W-Levodopa 03/17/2021 Constipation Nsaids Rash 05/17/2018 Contraindicated per marketing analytics manager documented as of this encounter (statuses as of 04/27/2023) Medications Medication Sig Dispensed Refills Start Date [...] Active Amantadine HCl 100 MG Oral Capsule (Symmetrel)Indicat ions:Primary parkinsonism (HCC) Take 1 Cap by mouth 2 times a day. 60 Cap 0 03/04/2021 Active Additional Information Patient taking differently:100 mg OralONCE, One cap once a day, Reported on 11/29/2022 Donepezil HCl 5 MG Oral Tablet (Aricept)Indicatio ns: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HCC),Hallucinatio ns Take 1 Tab by mouth at bedtime. [...] by mouth in the morning. 0 Active Atorvastatin Calcium 40 MG Oral Tablet (Lipitor)Indicatio ns:Dyslipidemia, goal LDL below 70 Take by mouth 1 Tablet in the morning. 90 Tablet 0 05/03/2022 Active metFORMIN HCl ER 500 MG Oral Tablet Extended Release 24 Hour (Glucophage XR) Take one tablet by mouth daily 90 Tablet 1 10/20/2022 Active Dutasteride 0.5 MG Oral Capsule (Avodart) Take 1 Capsule by mouth in the morning. 90 Capsule 3 12/13/2022 Active Betamethasone Dipropionate 0.05 % External Ointment Apply to skin lesions and scalp lesions up to two times a day for no longer than 2 weeks at a time for itch (then take a 2 week break) 50 g 2 02/21/2023 Active Benzonatate 100 MG Oral CapsuleIndications :Viral [...] coughing spells 15 g 12 03/10/2023 Active buPROPion HCl ER (XL) 150 MG Oral Tablet Extended Release 24 Hour (Wellbutrin XL) Take 1 Tablet by mouth in the morning. 100 Tablet 3 03/17/2023 Active Acetaminophen 500 MG Oral Tablet Take 2 Tablets by mouth every 8 hours as needed. Take every morning 0 Active Lidocaine HCl 4 % External Cream Apply topically to affected area. Apply to Right knee every morning then as needed per package directions 0 Active Torsemide 20 MG Oral Tablet (Demadex)Indicatio ns:Chronic diastolic 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 (HCC),Acute on chronic congestive heart failure, unspecified heart failure type (HCC),Nonrheumatic mitral valve regurgitation,Krista nary artery disease involving ute coronary artery of ute heart without angina pectoris,Paroxysma l atrial fibrillation (HCC),Stage 3b chronic kidney disease (HCC) Take 2 Tablets by mouth in the morning. 180 Tablet 3 03/22/2023 Active Vitamin D (Cholecalciferol) 25 MCG (1000 [...] MOUTH EVERY DAY 90 Tablet 3 04/15/2023 Active documented as of this encounter (statuses as of 04/27/2023) Active Problems Problem Noted Date Immunodeficiency 03/28/2023 [...] both knees Coronary artery disease invo lving ute coronary artery of ute heart without angina pectoris 03/21/2018 Last Assessment [...] as of this encounter (statuses as of 04/27/2023) Resolved Problems Problem Noted Date Resolved Date [...] scanned document from 11/13/[address] bains, [facility] [place]. 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 [...] as of this encounter (statuses as of 04/27/2023) Immunizations Name Administration Dates Next Due COVID-19 mRNA, LNP-s, No Pre serve, 2-Dose Series (Sweet P's) 11/03/2021,12/19/2020,11/28/2020 Covid-19 Ad26, Single Dose (Soy/J&J) 12/19/2020,11/28/2020 [...] encounter Miscellaneous Notes * Telephone Encounter - Michael Hinton MD - 04/27/2023 3:23 PM EDT This is why we schedule "pre-op visits." To discuss all of this. He would also need clearance from his marketing analytics manager, not primary care. * Telephone Encounter - LARRY Haji - 04/21/2023 10:20 AM EDT Patient's calling to advise PCP of recommended surgery and to ask Dr Hinton to advise if he feels that pt is well enough to have this procedure? Please advise. * Telephone Encounter - Alina Resendez RN - 04/19/2023 10:02 AM EDT TE with pt's regarding advice from Dr Marie regarding prostate procedure. Pt's appreciated the input and values her opinion She thanked me for the call and to let provider know she is greatly appreciated. * Telephone Encounter - Hiral Marie MD - 04/18/2023 4:00 PM EDT W/o proceduer he is at risk of prostate shutting so tightly blocks urien flow which can certainly affect kidneys, makekidney failure owrse faster. Hard for me to say what the odds are of this happening >> would say though w/ his HF and volume overload he may need to consider don't want prostate adding risk for DORYS which he's already at w/ HF meds/dx * Telephone Encounter - LARRY Sarmiento - 04/18/2023 9:45 AM EDT Pt was seen in urology yesterday and they informed him of his prostate being large and they wanted to shave it and medication isnt helping it. Asking what advice you may have, what would happen if hedoesn't get this done, how will it effect his kidney documented in this encounter Plan of Treatment Upcoming Encounters Date Type Specialty Care Team Description 05/02/2023 Telemedicine [facility] [place] So Ivey CRNP [address] [place] [address] Jahaira Nava, [address] [place] [address] 05/04/2023 Laboratory Laboratory Processing [facility], [facility] Mobile Home Draw [address] [place] [address] 05/10/2023 Office Visit Cardiology Leah Aguilera CRNP [address] [place] [address] 05/11/2023 Laboratory Laboratory Processing [facility], [facility] Draw [address] [place], [place] [id number] 05/18/2023 Laboratory Laboratory Processing [facility], [facility] Draw [address] [place] [address] 05/23/2023 Home Visit [facility] Mayuri Grant, RN [address] [place] [address] 05/25/2023 Laboratory Laboratory [facility] Draw [address] [place] [address] 06/01/2023 Laboratory Laboratory Processing [facility] [address] [place] [address] 06/08/2023 Laboratory Laboratory Processing [facility] Draw [address] [place] [address] 06/15/2023 Laboratory Laboratory Processing [facility] Draw [address] [place] [address] 06/22/2023 Laboratory Laboratory Processing [facility] [address] [place] [address] 06/29/2023 Laboratory Laboratory Processing [facility] Draw [address] [place] [address] 07/06/2023 Laboratory Laboratory Processing [facility] Draw [address] [place] [address] 07/06/2023 Home Visit [facility] [place], Betina Thakkar PA-C [address] [place] [address] 07/13/2023 Laboratory Laboratory Processing [facility] Draw [address] [place] [address] 07/20/2023 Laboratory Laboratory Processing [facility] Draw [address] [place] [address] 07/27/2023 Laboratory Laboratory Processing [facility] [address] [place] [address] 08/03/2023 Laboratory Laboratory Processing [facility] Draw [address] [place] [address] 08/10/2023 Laboratory Laboratory [facility] [address] [place] [address] 08/17/2023 Laboratory Laboratory [facility] [address] [place] [address] 08/24/2023 Laboratory Laboratory [facility] [address] [place] [address] 08/29/2023 Office Visit Urology Kalpesh Funes MD [address] [address] 08/31/2023 Laboratory Laboratory Processing [facility] [address] [place] [address] 09/07/2023 Laboratory Laboratory Processing [facility] [address] [place] [address] 09/14/2023 Laboratory Laboratory Processing [facility] Draw [address] [place] [address] 09/21/2023 Laboratory Laboratory Processing [facility] [address] [place] [address] 09/21/2023 Office Visit Nephrology Nataly Stone PA-C [address] [place] [address] 09/28/2023 Laboratory Laboratory Processing [facility], [facility] Draw [address] [place] [address] 10/05/2023 Laboratory Laboratory Processing [facility], [facility] [address] [place] [address] 10/12/2023 Laboratory Laboratory Processing [facility], [facility] [address] [place] [address] 10/19/2023 Laboratory Laboratory Processing [facility], [facility] Draw [address] [place] [address] 11/03/2023 Nurse Only Ancillary Jeronimo Nurse Annual Well[facility] Niru [address] [place] [address] Scheduled Procedures Name Priority Associated Diagnoses Date/Ti [...] for Pts 12 and Over 11/02/2023 11/02/2022 Yearly B-12 12/12/2023 12/12/2022, 09/23, 05/20/2022, Additional history exists Albumin/Creatinine Ratio 12/27/2023 023, 03/08/2019, 04/09/2014 CKD PHOS USE SMARTSET 04140 12/27/2023 12/26/2022, 0 06/21/2021 CKD HGB USE SMARTSET 87240 04/20/202404/20, 04/20/2023, 04/12/2023, Additional history exists COLONOSCOPY-EVERY 3 YRS AGES [...] this encounter Medical Devices Implanted Type Area Melt Supervisor Device Identifier Shelf Expiration Date Model / Serial / Lot Lens Intraoc 22.5 - [id number] - [id number] Implanted:Qty: 1 on 05/22/2018 by Jasbir Maurer MD at OR [facility] Right: Eye [employer] 11/22/2022 [id number] / [id number] / [id number] Lens Intraoc 21.0 - [id number] - [id number] Implanted:Qty: 1 on 06/05/2018 by Jasbir Maurer MD at OR [facility] Left: Eye [employer]OMB 12/20/2022 [id number] / [id number] / documented as of this encounter Advance [...] Care Power of Attor mayela Care Teams Cinema Or Theatre Manager Relationship Specialty Start Date End Date Michael Hinton MD [address] [place] [address] PCP - General Family Medicine 08/07/17 documented as of this encounter
--- OUTSIDE RECORDS SUMMARY | 2023-10-07 03:12 | External Medical Summary | Summary of Care ---
Author Name Unknown Organization [facility] Address [address] [place] [address] Phone [phone] Care Team Providers Care Spanish Interpreter Name Role Phone Michael Hinton MD Primary Care Provider [phone] Reason for Visit * Reason Onset Date Comments Advice 04/18/2023 Prostate surgery Encounter Details Date Type Department Care Team Description 04/18/2023 Telephone NephrologyMelissa 200 [facility] [place] [address] [facility]iral [facility] [address] Advice (Prostate surgery) Allergies Active Allergy Reactions Severity Noted Date Comments Fabiano Inhibitors Cough 06/09/2017 Carbidopa W-Levodopa 03/17/2021 Constipation Nsaids Rash 05/17/2018 Contraindicated per labor specialist documented as of this encounter (statuses as of 04/28/2023) Medications Medication Sig Dispensed Refills Start Date [...] mitral valve regurgitation,Krista nary artery disease involving algaaciq coronary artery of algaaciq heart without angina pectoris,Paroxysma l atrial fibrillation [...] as of this encounter (statuses as of 04/28/2023) Active Problems Problem Noted Date Immunodeficiency 03/28/2023 [...] 8.8* 8.5* 9.0* Medication Regimen: o Beta Hseldon Therapy: Metoprolol Succinate (ER) o FABIANO Inhibitor/ARB [...] both knees 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 Coronary artery disease due [...] as of this encounter (statuses as of 04/28/2023) Immunizations Name Administration Dates Next Due COVID-19 mRNA, LNP-s, No Pre serve, 2-Dose Series (Drivy) 11/03/2021,12/19/2020,11/28/2020 Covid-19 Ad26, Single Dose (Soy/J&J) 12/19/2020,11/28/2020 [...] encounter Miscellaneous Notes * Telephone Encounter - Magy Mercado - 04/28/2023 8:14 AM EDT aware and there is no surgery set yet, will call when they know a date and will also check to see what Dr Funes requires. * Telephone Encounter - Michael Hinton MD - 04/27/2023 3:23 PM EDT This is why we schedule "pre-op visits." To discuss all of this. He would also need clearance from his labor specialist, not primary care. * Telephone Encounter - [...] at Home So Ivey CRNP [address] [place] [address] Jahaira Nava, [facility] [address] [place] [address] 05/04/2023 Laboratory Laboratory Processing [facility] Mobile Home Draw [address] [place] [address] 05/10/2023 Office Visit Cardiology Leah Aguilera CRNP [address] [place] [address] 05/11/2023 Laboratory Laboratory Processing [facility] Draw [address] [place] [address] 05/18/2023 Laboratory Laboratory [facility] Draw [address] [place] [address] 05/23/2023 Home Visit [facility] Mayuri Grant RN [address] [place] [address] 05/25/2023 Laboratory Laboratory Processing [facility] [address] [place] [address] 06/01/2023 Laboratory Laboratory Processing [facility] Draw [address] [place] [address] 06/08/2023 Laboratory Laboratory Processing [facility] Draw [address] [place] [address] 06/15/2023 Laboratory Laboratory Processing [facility] Draw [address] [place] [address] 06/22/2023 Laboratory Laboratory Processing [facility] Draw [address] [place] [address] 06/29/2023 Laboratory Laboratory Processing [facility] Draw [address] [place] [address] 07/06/2023 Laboratory Laboratory Processing [facility] [address] [place] [address] 07/06/2023 Home Visit [facility] Betina Jacob PA-C [address] [place] [address] 07/13/2023 Laboratory Laboratory Processing [facility] [address] [place] [address] 07/20/2023 Laboratory Laboratory Processing [facility] Draw [address] [place] [address] 07/27/2023 Laboratory Laboratory Processing [facility] [address] [place] [address] 08/03/2023 Laboratory Laboratory Processing [facility] [address] [place] [address] 08/10/2023 Laboratory Laboratory Processing [facility] Draw [address] [place] [address] 08/17/2023 Laboratory Laboratory Processing [facility] [address] [place] [address] 08/24/2023 Laboratory Laboratory Processing [facility] Draw [address] [place] [address] 08/29/2023 Office Visit Urology Funes, Kalpesh Senior MD [address] [address] 08/31/2023 Laboratory Laboratory Processing [facility] [address] [place] [address] 09/07/2023 Laboratory Laboratory Processing [facility] Draw [address] [place] [address] 09/14/2023 Laboratory Laboratory Processing [facility] [address] [place] [address] 09/21/2023 Laboratory Laboratory Processing [facility] Draw [address] [place] [address] 09/21/2023 Office Visit Nephrology Chase, Nataly Christine PA-C [address] [place] [address] 09/28/2023 Laboratory Laboratory Processing [facility] Draw [address] [place] [address] 10/05/2023 Laboratory Laboratory Processing [facility] Draw [address] [place] [address] 10/12/2023 Laboratory Laboratory Processing [facility] Draw [address] [place] [address] 10/19/2023 Laboratory Laboratory Processing [facility] [place] Draw [address] [place] [address] 11/03/2023 Nurse Only Ancillary Nurse Jeronimo Annual [facility] Niru [address] [place] [address] Scheduled Procedures Name Priority Associated [...] 023, 03/08/2019, 04/09/2014 CKD PHOS USE SMARTSET 66481 12/27/2023 12/26/2022, 0 06/21/2021 CKD HGB USE SMARTSET 66005 04/27/202404/27, 04/27/2023, 04/20/2023, Additional history exists COLONOSCOPY-EVERY [...] this encounter Medical Devices Implanted Type Area Javascript Web Developer Device Identifier Shelf Expiration Date Model / Serial / Lot Lens Intraoc 22.5 - [id number] - [id number] Implanted:Qty: 1 on 05/22/2018 by Jasbir Maurer MD at OR [facility] Right: Eye [employer] 11/22/2022 [id number] / [id number] / [id number] Lens Intraoc 21.0 - [id number] - [id number] Implanted:Qty: 1 on 06/05/2018 by Jasbir Maurer MD at OR [facility] Left: Eye [employer]OM[employer] 12/20/2022 [id number] / [id number] / documented as of this encounter Advance [...] Agents on File Name Relationship Healthcare Agent [facility] p Communication Ashley Jose Spouse Health Care Power of Attor mayela Care Teams Spanish Interpreter Relationship Specialty Start Date End Date Michael Hinton MD [address] [place] [address] PCP - General Family Medicine 08/07/17 documented as of this encounter
--- OUTSIDE RECORDS SUMMARY | 2023-10-07 03:12 | External Medical Summary | Summary of Care ---
Author Name Unknown Organization [facility] Address [address] [place] [address] Phone [phone] Care Team Providers Care Sporting Goods Salesperson Name Role Phone Michael Hinton MD Primary Care Provider [phone] Reason for Visit * Reason Onset Date Comments Advice 04/18/2023 Prostate surgery Encounter Details Date Type Department Care Team Description 04/18/2023 Telephone NephrologyMelissa 200 [facility] [place] [address] [facility]iral [facility] [address] Advice (Prostate surgery) Allergies Active Allergy Reactions Severity Noted Date Comments Fabiano Inhibitors Cough 06/09/2017 Carbidopa W-Levodopa 03/17/2021 Constipation Nsaids Rash 05/17/2018 Contraindicated per fiber locking supervisor documented as of this encounter (statuses as of 04/21/2023) Medications Medication Sig Dispensed Refills Start Date [...] mitral valve regurgitation,Krista nary artery disease involving douglas coronary artery of douglas heart without angina pectoris,Paroxysma l atrial fibrillation [...] as of this encounter (statuses as of 04/21/2023) Active Problems Problem Noted Date Immunodeficiency 03/28/2023 [...] both knees Coronary artery disease invo lving douglas coronary artery of douglas heart without angina pectoris 03/21/2018 Last Assessment [...] as of this encounter (statuses as of 04/21/2023) Resolved Problems Problem Noted Date Resolved Date [...] scanned document from 11/13/[address] [place] [facility] [place] 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 [...] as of this encounter (statuses as of 04/21/2023) Immunizations Name Administration Dates Next Due COVID-19 mRNA, LNP-s, No Pre serve, 2-Dose Series ([employer]) 11/03/2021,12/19/2020,11/28/2020 Covid-19 Ad26, Single Dose (Soy/J&J) 12/19/2020,11/28/2020 [...] Miscellaneous Notes * Telephone Encounter - LARRY Haji - [...] Encounters Date Type Specialty Care Team Description 04/27/2023 Laboratory [facility] [address] [place] [address] 05/02/2023 Telemedicine [facility] So Ivey CRNP [address] [place] [address] Jahaira Nava, [address] [place] [address] 05/04/2023 Laboratory [facility] [address] [place] [address] 05/10/2023 Office Visit Cardiology Leah Aguilera CRNP [address] [place], [place] [address] 05/11/2023 Laboratory Laboratory [facility] [address] [place] [address] 05/18/2023 Laboratory Laboratory [facility] [address] [place] [address] 05/23/2023 [facility] Mayuri Grant RN [address] [place] [address] 05/25/2023 Laboratory Laboratory Processing [facility] [address] [place] [address] 06/01/2023 Laboratory Laboratory Processing [facility] [address] [place] [address] 06/08/2023 Laboratory Laboratory Processing [facility] [address] [place] [address] 06/15/2023 Laboratory Laboratory Processing [facility] [address] [place] [address] 06/22/2023 Laboratory [facility] [address] [place] [address] 06/29/2023 Laboratory Laboratory Processing [facility] [address] [place] [address] 07/06/2023 Laboratory Laboratory Processing [facility] [address] [place] [address] 07/06/2023 [facility] Visit [facility], Betina Thakkar PA-C [address] [place] [address] 07/13/2023 Laboratory Laboratory Processing [facility] [address] [place] [address] 07/20/2023 Laboratory Laboratory Processing [facility] [address] [place] [address] 07/27/2023 Laboratory Laboratory Processing [facility] [address] [place] [address] 08/03/2023 Laboratory Laboratory Processing [facility] [address] [place] [address] 08/10/2023 Laboratory Laboratory Processing [facility] Draw [address] [place] [address] 08/17/2023 Laboratory Laboratory Processing [facility] [address] [place] [address] 08/24/2023 Laboratory Laboratory Processing [facility] [address] [place] [address] 08/29/2023 Office Visit Urology Kalpesh Funes MD [address] [address] 08/31/2023 Laboratory Laboratory Processing [facility] [address] [place] [address] 09/07/2023 Laboratory Laboratory Processing [facility] [address] [place] [address] 09/14/2023 Laboratory Laboratory Processing [facility] [address] [place] [address] 09/21/2023 Laboratory Laboratory Processing [facility] [address] [place] [address] 09/21/2023 Office Visit Nephrology Nataly Stone PA-C [address] [place] [address] 09/28/2023 Laboratory Laboratory Processing [facility], [facility] Draw [address] [place] [address] 10/05/2023 Laboratory Laboratory Processing [facility], [facility] [address] [place] [address] 10/12/2023 Laboratory Laboratory Processing [facility], [facility] [address] [place] [address] 10/19/2023 Laboratory Laboratory Processing [facility], [facility] Mobile Home Draw [address] [place] [address] 11/03/2023 Nurse Only Ancillary Nurse Jeronimo Annual [facility] [address] [address] Scheduled Procedures Name Priority Associated Diagnoses Date/Ti me COLONOSCOPY FLEXIBLE PROXIMAL DIAGNOSTIC Recall History of colon polyps Health Maintenance Due Date Last Done Comments Hepatitis C Screening 1963 DIABETES-FOOT EXAM 03/27/2021 03/27/2020, 08/23/2018 COVID-19 Vaccine (5 - Pfizer series) 12/29/2021 11/03/2021, 12/19/2020, 12/19/2020, Additional history exists GFR 10/04/2023 04/04/2023, 02/21, 03/09/2023, Additional history exists HbA1c 10/12/2023 04/12/2023, 03/0 03/2023, 03/22/2022, Additional history exists DIABETES-EYE EXAM 11/01/2023 11/01/2022, , 08/04/2011, Additional history exists Depression Screening, Annual for Pts 12 and Over 11/02/2023 11/02/2022 Yearly B-12 12/12/2023 12/12/2022, 09/23, 05/20/2022, Additional history exists Albumin/Creatinine Ratio 12/27/2023 023, 03/08/2019, 04/09/2014 CKD PHOS USE SMARTSET 62212 12/27/2023 12/26/2022, 0 06/21/2021 CKD HGB USE SMARTSET 30447 04/20/202404/20, 04/20/2023, 04/12/2023, Additional history exists COLONOSCOPY-EVERY 3 YRS AGES 18-100 09/12/2025 09/12/2022, 07/10/2020, 03/24/2015, Additional history exists DTaP,Tdap,and Td Vaccines (4 - Td or Tdap) 10/24/2029 10/24/2019, 10/24/2019, 11/03/2008, Additional history exists Pneumococcal Vaccine: 65+ Years Completed 04/27/2016, 08/27/2009 Zoster Vaccines Completed 10/24/2019, 11/2019, 07/31/2019, Additional history exists Influenza Vaccine (FLU shot) Completed , 07/23/2021, 07/07/2020, Additional history exists GARDASIL-HPV IMMUNIZATION SERIES Aged Out No longer eligible based on patient's age to complete this topic Hepatitis B Aged Out No longer eligi ble based on patient's age to complete this topic MENINGOCOCCAL (MENACTRA/MENVEO) Aged Out No longer eligible based on patient's age to complete this topic documented as of this encounter Medical Devices Implanted Type Area Special Event Assistant Device Identifier Shelf Expiration Date Model / Serial / Lot Lens Intraoc 22.5 - [id number] - [id number] Implanted:Qty: 1 on 05/22/2018 by Jasbir Maurer MD at [facility] Right: Eye [employer] 11/22/2022 [id number] / [id number] / [id number] Lens Intraoc 21.0 - [id number] - [id number] Implanted:Qty: 1 on 06/05/2018 by Jasbir Maurer MD at OR [facility] Left: Eye [employer] 12/20/2022 [id number] / [id number] / documented as of this encounter Advance [...] Agents on File Name Relationship Healthcare Agent Relationsco p Communication Ashley Jose Spouse Health Care Power of Attor mayela Care Teams Sporting Goods Salesperson Relationship Specialty Start Date End Date Michael Hinton MD [address] [place] [address] PCP - General Family Medicine 08/07/17 documented as of this encounter
--- OUTSIDE RECORDS SUMMARY | 2023-10-07 03:12 | External Medical Summary ---
Author Name Unknown Address Unknown Organization [id number][place] [place] [address] [place] [address] [place] [address] Laboratory Report Ordering Provider Test Date Status GUERRERO CHAUHAN 04/27/2023 08:27:00 Final Observation Date Value Abnormality Reference (Units ) Status Ferritin 04/27/2023 08:27:00 296 30-400 (ng /mL) Final Performing Location [facility] [place] [address] [place] [address]
--- OUTSIDE RECORDS SUMMARY | 2023-10-07 03:12 | External Medical Summary ---
Author Name Unknown Address Unknown Organization [id number]:[facility] [place] [address] [facility] [address] Laboratory Report Ordering Provider Test Date Status GUERRERO CHAUHAN 04/27/2023 08:27:00 Final Observation Date Value Abnormality Reference (Units ) Status WBC, Total 04/27/2023 08:27:00 3.53 Below low normal 4.00-10.80 (K/uL) Final RBC 04/27/2023 08:27:00 3.37 4.50-5.25 (M/uL) Final Hemoglobin 04/27/2023 08:27:00 10.5 Below low normal 14.0-16.8 (g/dL) Final HCT 04/27/2023 08:27:00 34.9 Below low normal 40.0-48.4 (%) Final MCV 04/27/2023 08:27:00 103.6 82.0-99.5 (fL) Final MCH 04/27/2023 08:27:00 31.2 27.0-34.0 (pg) Final MCHC 04/27/2023 08:27:00 30.1 32.0-36.0 (g/dL) Final RDW 04/27/2023 08:27:00 15.6 11.5-15.5 (%) Final Platelets 04/27/2023 08:27:00 144 140-400 (K/uL) Final MPV 04/27/2023 08:27:00 10.0 6.6-11.1 (fL) Final Nucleated erythrocytes/100 leukocytes [Ratio] in Blood by Automated count 04/27/2023 08:27:00 0 <=0 (/100 WBCs) Final Performing Location [facility] [place] - [address] [place] [address]
--- OUTSIDE RECORDS SUMMARY | 2023-10-07 03:12 | External Medical Summary ---
Author Name Unknown Address Unknown Organization [id number][place] [place] [address] [facility] [address] Laboratory Report Ordering Provider Test Date Status GUERRERO CHAUHAN 04/27/2023 08:27:00 Final Observation Date Value Abnormality Reference (Units ) Status SYNC LEUKOCYTES IN BLOOD BY AUTOMATED COUNT 04/27/2023 08:27:00 3.53 Below low normal 4.00-10.80 (K/uL) Final Segs 04/27/2023 08:27:00 63.0 40.0-75.0 (%) Final Lymphs % 04/27/2023 08:27:00 25.2 18.0-42.0 (%) Final Monos 04/27/2023 08:27:00 8.8 1.0-11.0 (%) Final Eosinophils 04/27/2023 08:27:00 1.1 0.0-6.0 (%) Final Basos 04/27/2023 08:27:00 0.8 0.0-2.0 (%) Final Immature Granulocyte, Percent 04/27/2023 08:27:00 1.1 0.0-2.0 (%) Final Absolute Segs 04/27/2023 08:27:00 2.22 1.80-7.70 (K/uL) Final Lymphs, absolute 04/27/2023 08:27:00 0.89 Below low normal 1.00-4.80 (K/ul) Final Monos, Abs 04/27/2023 08:27:00 0.31 0.00-1.10 (K/uL) Final Eos, Abs 04/27/2023 08:27:00 0.04 0.00-0.70 (K/uL) Final Basos, Abs 04/27/2023 08:27:00 0.03 0.00-0.20 (K/uL) Final Immature Granulocytes, Number 04/27/2023 08:27:00 0.04 0.00-0.20 (K/uL) Final Performing Location [facility] [place] [address] [facility] [address]
--- OUTSIDE RECORDS SUMMARY | 2023-10-07 03:12 | External Medical Summary ---
Author Name Unknown Address Unknown Organization K01:[facility] [place] - [facility] [place] [address] Laboratory Report Ordering Provider Test Date Status GUERRERO CHAUHAN 04/20/2023 08:44:00 Final Observation Date Value Abnormality Reference (Units ) Status WBC, Total 04/20/2023 08:44:00 3.08 Below low normal 4.00-10.80 (K/uL) Final RBC 04/20/2023 08:44:00 3.38 4.50-5.25 (M/uL) Final Hemoglobin 04/20/2023 08:44:00 10.7 Below low normal 14.0-16.8 (g/dL) Final HCT 04/20/2023 08:44:00 35.0 Below low normal 40.0-48.4 (%) Final MCV 04/20/2023 08:44:00 103.6 82.0-99.5 (fL) Final MCH 04/20/2023 08:44:00 31.7 27.0-34.0 (pg) Final MCHC 04/20/2023 08:44:00 30.6 32.0-36.0 (g/dL) Final RDW 04/20/2023 08:44:00 14.6 11.5-15.5 (%) Final Platelets 04/20/2023 08:44:00 144 140-400 (K/uL) Final MPV 04/20/2023 08:44:00 10.2 6.6-11.1 (fL) Final Nucleated erythrocytes/100 leukocytes [Ratio] in Blood by Automated count 04/20/2023 08:44:00 0 <=0 (/100 WBCs) Final Performing Location [facility] [place] - [address] [place] [address]
--- OUTSIDE RECORDS SUMMARY | 2023-10-07 03:12 | External Medical Summary | Summary of Care ---
Author Name Unknown Organization [facility] Address [address] [place] [address] Phone [phone] Care Team Providers Care Rack Maker Name Role Phone Michael Hinton MD Primary Care Provider [phone] Reason for Visit * Reason Onset Date Comments Advice 04/18/2023 Prostate surgery Encounter Details Date Type Department Care Team Description 04/18/2023 Telephone NephrologyMelissa 200 [facility] [place] [address] Hiral [facility] [address] Advice (Prostate surgery) Allergies Active Allergy Reactions Severity Noted Date Comments Fabiano Inhibitors Cough 06/09/2017 Carbidopa W-Levodopa 03/17/2021 Constipation Nsaids Rash 05/17/2018 Contraindicated per product transfer pumper documented as of this encounter (statuses as [...] mitral valve regurgitation,Krista nary artery disease involving salamatof coronary artery of salamatof heart without angina pectoris,Paroxysma l atrial fibrillation [...] both knees Coronary artery disease invo lving salamatof coronary artery of salamatof heart without angina pectoris 03/21/2018 Last Assessment & Plan: Stable. No angina. - continue metoprolol, atorvastatin. Not on aspirin due to GI bleeding and anemia. Fabiano intolerance. 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 [...] mRNA, LNP-s, No Pre serve, 2-Dose Series ([employer]) 11/03/2021,12/19/2020,11/28/2020 Covid-19 Ad26, Single Dose (Soy/J&J) 12/19/2020,11/28/2020 [...] He would also need clearance from his product transfer pumper, not primary care. * Telephone Encounter - [...] Care Team Description 05/02/2023 Telemedicine [facility] [place] So Ivey CRNP [address] [place] [address] Jahaira Nava, [address] [place] [address] 05/04/2023 Laboratory Laboratory Processing [facility] Mobile Home Draw [address] [place] [address] 05/10/2023 Office Visit Cardiology Leah Aguilera CRNP [address] [place] [address] 05/11/2023 Laboratory Laboratory Processing [facility], [facility] Mobile Home Draw [address] [place], [place] [address] 05/18/2023 Laboratory Laboratory Processing [facility], [facility] Mobile Home Draw [address] [place] [address] 05/23/2023 Home Visit [facility] Mayuri Grant, RN [address] [place] [address] 05/25/2023 Laboratory Laboratory Processing [facility] Draw [address] [place] [address] 06/01/2023 Laboratory Laboratory Processing [facility] Draw [address] [place] [address] 06/08/2023 Laboratory Laboratory Processing [facility] Draw [address] [place] [address] 06/15/2023 Laboratory Laboratory Processing [facility] Draw [address] [place] [address] 06/22/2023 Laboratory Laboratory Processing [facility] Draw [address] [place] [address] 06/29/2023 Laboratory Laboratory Processing [facility] Draw [address] [place] [address] 07/06/2023 Laboratory Laboratory Processing [facility] Draw [address] [place] [address] 07/06/2023 Home Visit [facility] [place], Betina Thakkar PA-C [address] [place] [address] 07/13/2023 Laboratory Laboratory Processing [facility] Draw [address] [place] [address] 07/20/2023 Laboratory Laboratory Processing [facility] Draw [address] [place] [address] 07/27/2023 Laboratory Laboratory Processing [facility] Draw [address] [place] [address] 08/03/2023 Laboratory Laboratory Processing [facility] [address] [place] [address] 08/10/2023 Laboratory Laboratory Processing [facility] Draw [address] [place] [address] 08/17/2023 Laboratory Laboratory Processing [facility] Draw [address] [place] [address] 08/24/2023 Laboratory Laboratory Processing [facility] Draw [address] [place] [address] 08/29/2023 Office Visit Urology Kalpesh Funes MD [address] [address] 08/31/2023 Laboratory Laboratory Processing [facility] Draw [address] [place] [address] 09/07/2023 Laboratory Laboratory Processing [facility] Draw [address] [place] [address] 09/14/2023 Laboratory Laboratory Processing [facility] Draw [address] [place] [address] 09/21/2023 Laboratory Laboratory Processing [facility], [facility] Draw [address] [place] [address] 09/21/2023 Office Visit Nephrology Nataly Stone PA-C [address] [place] [address] 09/28/2023 Laboratory Laboratory Processing [facility], [facility] [address] [place] [address] 10/05/2023 Laboratory Laboratory Processing [facility], [facility] Draw [address] [place] [address] 10/12/2023 Laboratory Laboratory Processing [facility], [facility] Draw [address] [place] [address] 10/19/2023 Laboratory Laboratory Processing [facility], [facility] Mobile Home Draw [address] [place] [address] 11/03/2023 Nurse Only Ancillary Jeronimo Nurse Annual Wellness Niru [address] [place] [address] Scheduled Procedures Name Priority Associated Diagnoses Date/Ti [...] 023, 03/08/2019, 04/09/2014 CKD PHOS USE SMARTSET 60547 12/27/2023 12/26/2022, 0 06/21/2021 CKD HGB USE SMARTSET 16812 04/20/202404/20, 04/20/2023, 04/12/2023, Additional history exists COLONOSCOPY-EVERY [...] this encounter Medical Devices Implanted Type Area Hospice Plan Administrator Device Identifier Shelf Expiration Date Model / Serial / Lot Lens Intraoc 22.5 - [id number] - [id number] Implanted:Qty: 1 on 05/22/2018 by Jasbir Maurer MD at OR [facility] Right: Eye [employer] 11/22/2022 [id number] / [id number] / [id number] Lens Intraoc 21.0 - [id number] - [id number] Implanted:Qty: 1 on 06/05/2018 by Jasbir Maurer MD at OR [facility] Left: Eye [employer]OM[employer] 12/20/2022 [id number] / [id number] / documented as of this encounter Advance [...] Care Power of Attor mayela Care Teams Rack Maker Relationship Specialty Start Date End Date Michael Hinton MD [address] [place] [address] PCP - General Family Medicine 08/07/17 documented as of this encounter
--- OUTSIDE RECORDS SUMMARY | 2023-10-07 03:12 | External Medical Summary | Summary of Care ---
Author Name Unknown Organization [facility] Address [address] [place] [address] Phone [phone] Care Team Providers Care Marketing Administrator Name Role Phone Michael Hinton MD Primary Care Provider [phone] Reason for Visit * Reason Onset Date Comments Advice 04/18/2023 Encounter Details Date Type Department Care Team Description 04/18/2023 Telephone NephrologyMelissa Benton [address] [facility] [place] [id number] Hiral Marie MD [address] [facility] [address] Advice Allergies Active Allergy Reactions Severity Noted Date Comments Fabiano Inhibitors Cough 06/09/2017 Carbidopa W-Levodopa 03/17/2021 Constipation Nsaids Rash 05/17/2018 Contraindicated per superintendent track documented as of this encounter (statuses as of 04/19/2023) Medications Medication Sig Dispensed Refills Start Date [...] as of this encounter (statuses as of 04/19/2023) Active Problems Problem Noted Date Immunodeficiency 03/28/2023 [...] as of this encounter (statuses as of 04/19/2023) Resolved Problems Problem Noted Date Resolved Date [...] as of this encounter (statuses as of 04/19/2023) Immunizations Name Administration Dates Next Due COVID-19 mRNA, LNP-s, No Pre serve, 2-Dose Series (amiando) 11/03/2021,12/19/2020,11/28/2020 Covid-19 Ad26, Single Dose (Soy/J&J) 12/19/2020,11/28/2020 [...] encounter Miscellaneous Notes * Telephone Encounter - Alnia Resendez RN - 04/19/2023 10:02 AM EDT [...] Encounters Date Type Specialty Care Team Description 04/20/2023 Laboratory Laboratory Processing [facility], [facility] Home Draw [address] [place] [address] 04/27/2023 Laboratory [facility] [address] [place] [address] 05/02/2023 Telemedicine [facility] So Ivey CRNP [address] [place] [address] Jahaira Nava, [address] [place] [address] 05/04/2023 Laboratory Laboratory Processing [facility] [address] [place] [address] 05/10/2023 Office Visit Cardiology Leah Aguilera CRNP [address] [place] [address] 05/11/2023 Laboratory Laboratory Processing [facility] [address] [place] [address] 05/18/2023 Laboratory Laboratory Processing [facility] [address] [place] [address] 05/23/2023 Home Visit [facility] Mayuri Grant RN [address] [place] [address] 05/25/2023 Laboratory Laboratory Processing [facility] [address] [place] [address] 06/01/2023 Laboratory Laboratory Processing [facility] [address] [place] [address] 06/08/2023 Laboratory Laboratory Processing [facility] [address] [place] [address] 06/15/2023 Laboratory Laboratory Processing [facility] [address] [place] [address] 06/22/2023 Laboratory Laboratory Processing [facility] [address] [place] [address] 06/29/2023 Laboratory Laboratory Processing [facility] [address] [place] [address] 07/06/2023 Laboratory Laboratory Processing [facility] [address] [place] [address] 07/06/2023 Home Visit [facility], Betina Thakkar PA-C [address] [place] [address] 07/13/2023 Laboratory Laboratory Processing [facility] [address] [place] [address] 07/20/2023 Laboratory Laboratory Processing [facility] [address] [place] [address] 07/27/2023 Laboratory Laboratory Processing [facility] [address] [place] [address] 08/03/2023 Laboratory Laboratory Processing [facility] Draw [address] [place] [address] 08/10/2023 Laboratory Laboratory Processing [facility] Draw [address] [place] [address] 08/17/2023 Laboratory Laboratory Processing [facility] [address] [place] [address] 08/24/2023 Laboratory Laboratory Processing [facility] [address] [place] [address] 08/29/2023 Office Visit Urology [place], Kalpesh Senior MD [address] [address] 08/31/2023 Laboratory Laboratory Processing [facility] [address] [place] [address] 09/07/2023 Laboratory Laboratory Processing [facility] [address] [place] [address] 09/14/2023 Laboratory Laboratory Processing [facility] [address] [place] [address] 09/21/2023 Laboratory Laboratory Processing [facility] [address] [place] [address] 09/21/2023 Office Visit Nephrology Nataly Stone PA-C [address] [place] [address] 09/28/2023 Laboratory Laboratory Processing [facility] [address] [place] [address] 10/05/2023 Laboratory Laboratory Processing [facility] [address] [place] [address] 10/12/2023 Laboratory Laboratory Processing [facility], [facility] Draw [address] [place] [address] 10/19/2023 Laboratory Laboratory Processing [facility], [facility] Draw [address] [place] [address] 11/03/2023 Nurse Only Ancillary Nurse Jeronimo [facility] Niru [address] [place] [address] Scheduled Procedures Name Priority Associated Diagnoses Date/Ti me COLONOSCOPY FLEXIBLE PROXIMAL DIAGNOSTIC Recall History of colon polyps Health Maintenance Due Date Last Done Comments Hepatitis C Screening 1963 DIABETES-FOOT EXAM 03/27/2021 03/27/2020, 08/23/2018 COVID-19 Vaccine (5 - Pfizer series) 12/29/2021 11/03/2021, 12/19/2020, 12/19/2020, Additional history exists GFR 10/04/2023 04/04/2023, 02/21, 03/09/2023, Additional history exists HbA1c 10/12/2023 04/12/2023, 0303/2023, 03/22/2022, Additional history exists DIABETES-EYE EXAM 11/01/2023 11/01/2022, , 08/04/2011, Additional history exists Depression Screening, Annual for Pts 12 and Over 11/02/2023 11/02/2022 Yearly B-12 12/12/2023 12/12/2022, 09/23, 05/20/2022, Additional history exists Albumin/Creatinine Ratio 12/27/2023 023, 03/08/2019, 04/09/2014 CKD PHOS USE SMARTSET 00222 12/27/2023 12/26/2022, 0 06/21/2021 CKD HGB USE SMARTSET 92057 04/12/202404/12, 04/12/2023, 04/04/2023, Additional history exists COLONOSCOPY-EVERY 3 YRS AGES [...] this encounter Medical Devices Implanted Type Area Equity Analyst Device Identifier Shelf Expiration Date Model / Serial / Lot Lens Intraoc 22.5 - [id number] - [id number] Implanted:Qty: 1 on 05/22/2018 by Jasbir Maurer MD at OR [facility] Right: Eye [employer] 11/22/2022 [id number] / [id number] / [id number] Lens Intraoc 21.0 - [id number] - [id number] Implanted:Qty: 1 on 06/05/2018 by Jasbir Maurer MD at OR [facility] Left: Eye [employer] 12/20/2022 [id number] / [id number] / documented as of this encounter Advance [...] Care Power of Attor mayela Care Teams Marketing Administrator Relationship Specialty Start Date End Date Michael Hinton MD [address] [place] [address] PCP - General Family Medicine 08/07/17 documented as of this encounter
--- OUTSIDE RECORDS SUMMARY | 2023-10-07 03:12 | External Medical Summary ---
Author Name Unknown Address Unknown Organization [id number]:[facility]ORY [facility] [place] [place] 100 [facility] [address] Laboratory Report Ordering Provider Test Date Status GUERRERO CHAUHAN 04/20/2023 08:44:00 Final Observation Date Value Abnormality Reference (Units ) Status SYNC LEUKOCYTES IN BLOOD BY AUTOMATED COUNT 04/20/2023 08:44:00 3.08 Below low normal 4.00-10.80 (K/uL) Final Segs 04/20/2023 08:44:00 64.7 40.0-75.0 (%) Final Lymphs % 04/20/2023 08:44:00 25.3 18.0-42.0 (%) Final Monos 04/20/2023 08:44:00 7.8 1.0-11.0 (%) Final Eosinophils 04/20/2023 08:44:00 1.0 0.0-6.0 (%) Final Basos 04/20/2023 08:44:00 0.6 0.0-2.0 (%) Final Immature Granulocyte, Percent 04/20/2023 08:44:00 0.6 0.0-2.0 (%) Final Absolute Segs 04/20/2023 08:44:00 1.99 1.80-7.70 (K/uL) Final Lymphs, absolute 04/20/2023 08:44:00 0.78 Below low normal 1.00-4.80 (K/ul) Final Monos, Abs 04/20/2023 08:44:00 0.24 0.00-1.10 (K/uL) Final Eos, Abs 04/20/2023 08:44:00 0.03 0.00-0.70 (K/uL) Final Basos, Abs 04/20/2023 08:44:00 0.02 0.00-0.20 (K/uL) Final Immature Granulocytes, Number 04/20/2023 08:44:00 0.02 0.00-0.20 (K/uL) Final Performing Location [facility] - [address] [facility] [address]
--- OUTSIDE RECORDS SUMMARY | 2023-10-07 03:12 | External Medical Summary | Summary of Care ---
Author Name Unknown Organization [facility] Address [address] [place] [address] Phone [phone] Care Team Providers Care Timing Adjuster Name Role Phone Michael Hinton MD Primary Care Provider [phone] Reason for Visit * Reason Onset Date Comments Advice 04/18/2023 Prostate surgery Encounter Details Date Type Department Care Team Description 04/18/2023 Telephone NephrologyMelissa 200 [facility] [place] [address] Hiral [facility] [address] Advice (Prostate surgery) Allergies Active Allergy Reactions Severity Noted Date Comments Fabiano Inhibitors Cough 06/09/2017 Carbidopa W-Levodopa 03/17/2021 Constipation Nsaids Rash 05/17/2018 Contraindicated per stripper apprentice documented as of this encounter (statuses as [...] mitral valve regurgitation,Krista nary artery disease involving tribe coronary artery of tribe heart without angina pectoris,Paroxysma l atrial fibrillation [...] both knees 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 No angina. - continue metoprolol, atorvastatin. Not on aspirin due to GI bleeding and anemia. Fabiano intolerance. 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 [...] mRNA, LNP-s, No Pre serve, 2-Dose Series (U For Life) 11/03/2021,12/19/2020,11/28/2020 Covid-19 Ad26, Single Dose (Soy/J&J) 12/19/2020,11/28/2020 [...] Home So Ivey CRNP [address] [place] [address] Jahaira Nava, [address] [place] [id number] 05/04/2023 Laboratory Laboratory Processing [facility] Draw [address] [place] [address] 05/10/2023 Office Visit Cardiology Leah Aguilera CRNP [address] [place] [address] 05/11/2023 Laboratory Laboratory Processing [facility], [facility] Draw [address] [place] [address] 05/18/2023 Laboratory Laboratory Processing [facility], [facility] Draw [address] [place] [address] 05/23/2023 Home Visit [facility] Mayuri Grant RN [address] [facility] [place] [address] 05/25/2023 Laboratory Laboratory Processing [facility], [facility] Draw [address] [place] [address] 06/01/2023 Laboratory Laboratory Processing [facility] Draw [address] [place] [address] 06/08/2023 Laboratory Laboratory Processing [facility] Draw [address] [place] [address] 06/15/2023 Laboratory Laboratory Processing [facility] Draw [address] [place] [address] 06/22/2023 Laboratory Laboratory Processing [facility] Draw [address] [place] [address] 06/29/2023 Laboratory Laboratory Processing [facility] Draw [address] [place] [address] 07/06/2023 Laboratory Laboratory Processing [facility] Draw [address] [place] [address] 07/06/2023 Home Visit [facility], Betina Thakkar PA-C [address] [place] [address] 07/13/2023 Laboratory Laboratory Processing [facility] Draw [address] [place] [address] 07/20/2023 Laboratory Laboratory Processing [facility] Draw [address] [place] [address] 07/27/2023 Laboratory Laboratory Processing [facility] Draw [address] [place] [address] 08/03/2023 Laboratory Laboratory Processing [facility] Draw [address] [place] [address] 08/10/2023 Laboratory Laboratory Processing [facility] Draw [address] [place] [address] 08/17/2023 Laboratory Laboratory Processing [facility] Draw [address] [place] [address] 08/24/2023 Laboratory Laboratory Processing [facility] Draw [address] [place] [address] 08/29/2023 Office Visit Urology [place], Kalpesh Senior MD [address] [address] 08/31/2023 Laboratory Laboratory Processing [facility] Draw [address] [place] [address] 09/07/2023 Laboratory Laboratory Processing [facility] [address] [place] [address] 09/14/2023 Laboratory Laboratory Processing [facility] [address] [place] [address] 09/21/2023 Laboratory Laboratory Processing [facility] Draw [address] [place] [address] 09/21/2023 Office Visit Nephrology Nataly Stone PA-C [address] [place] [address] 09/28/2023 Laboratory Laboratory Processing [facility] Draw [address] [place] [address] 10/05/2023 Laboratory Laboratory Processing [facility], [facility] Home Draw [address] [place] [address] 10/12/2023 Laboratory Laboratory Processing [facility], [facility] Home Draw [address] [place] [address] 10/19/2023 Laboratory Laboratory Processing [facility], [facility] Home Draw [address] [place] [address] 11/03/2023 Nurse Only Ancillary Jeronimo Nurse [facility] Niru [address] [place] [address] Scheduled Procedures Name Priority Associated Diagnoses [...] 023, 03/08/2019, 04/09/2014 CKD PHOS USE SMARTSET 16998 12/27/2023 12/26/2022, 0 06/21/2021 CKD HGB USE SMARTSET 87499 04/20/202404/20, 04/20/2023, 04/12/2023, Additional history exists COLONOSCOPY-EVERY [...] this encounter Medical Devices Implanted Type Area Fitting Room Associate Device Identifier Shelf Expiration Date Model / Serial / Lot Lens Intraoc 22.5 - [id number] - [id number] Implanted:Qty: 1 on 05/22/2018 by Jasbir Maurer MD at OR [facility] Right: Eye [employer] 11/22/2022 [id number] / [id number] / [id number] Lens Intraoc 21.0 - [id number] - [id number] Implanted:Qty: 1 on 06/05/2018 by Jasbir Maurer MD at OR [facility] Left: Eye [employer]OM[employer] 12/20/2022 [id number] / [id number] / documented as of this encounter Advance [...] Care Power of Attor mayela Care Teams Timing Adjuster Relationship Specialty Start Date End Date Michael Hinton MD [address] [place] [address] PCP - General Family Medicine 08/07/17 documented as of this encounter
--- OUTSIDE RECORDS SUMMARY | 2023-10-07 03:12 | External Medical Summary ---
Author Name Unknown Address Unknown Organization K01:LABORATORY [facility] [place] - [address] [place] [address] Laboratory Report Ordering Provider Test Date Status GUERRERO CHAUHAN 04/20/2023 08:44:00 Final Observation Date Value Abnormality Reference (Units ) Status Ferritin 04/20/2023 08:44:00 154 30-400 (ng /mL) Final Performing Location LAB[facility]ORY [facility] [place] - [address] [place] [address]
--- OUTSIDE RECORDS SUMMARY | 2023-10-07 03:13 | External Medical Summary | Summary of Care ---
Author Name Unknown Organization [facility] Address [address] [place] [address] Phone [phone] Care Team Providers Care Carpet Technician Name Role Phone Serjio Hinton MD Primary Care Provider [phone] Reason for Visit * Reason Comments Follow Up Encounter Details Date Type Department Care Team Description 04/17/2023 Office Visit Urology, [facility] [address] [place] [address] Kalpesh Funes MD [address] [facility] [address] [place] [address] BPH with obstruction/lower urinary tract symptoms*; Urge incontinence Allergies Active Allergy Reactions Severity Noted Date Comments Fabiano Inhibitors Cough 06/09/2017 Carbidopa W-Levodopa 03/17/2021 Constipation Nsaids Rash 05/17/2018 Contraindicated per short range air defense artillery documented as of this encounter (statuses as of 04/17/2023) Medications Medication Sig Dispensed Refills Start Date [...] mitral valve regurgitation,Krista nary artery disease involving [place] coronary artery of [place] heart without angina pectoris,Paroxysma l atrial fibrillation [...] as of this encounter (statuses as of 04/17/2023) Active Problems Problem Noted Date Immunodeficiency 03/28/2023 [...] both knees Coronary artery disease invo lving [place] coronary artery of [place] heart without angina pectoris 03/21/2018 Last Assessment [...] as of this encounter (statuses as of 04/17/2023) Resolved Problems Problem Noted Date Resolved Date [...] scanned document from 11/13/[address] bains mnp. 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 [...] as of this encounter (statuses as of 04/17/2023) Immunizations Name Administration Dates Next Due COVID-19 [...] Sign Reading Time Taken Comments Blood Pressure 122/62 04/17/2023 3:30 PM EDT Pulse - - Temperature - - Respiratory Rate - - Oxygen Saturation - - Inhaled Oxygen Concentration - - Weight - - Height - - Body Mass Index - - documented in this encounter Progress Notes * Kalpesh Funes MD - 04/17/2023 3:15 PM EDT [id number] PCP: SERJIO HINTON [address] [place] [address] [place] [address] [phone] Jesus Jose is a 78 year old male, who presents for 4 month follow-up of his history of voiding symptoms. Patient's past notes are reviewed. Five alpha reductase inhibitor was switched to dutasteride in November of 2022. Patient's persistent urgency and nocturia are appreciated. He is here with his . Patient's history of dementia is noted. Patient's reports that he no longer leaves the house secondary to his voiding concerns. They do not feel the dutasteride has created a significant difference. Hematuria: Presented to Urology Aug 2022. BPH: Patient is being seen for BPH today. He has had the following symptoms:slow stream, intermittency, nocturia x3, urgency and incontinence of urine.Severity is moderate. He has triedtamsulosin. Previous prescription for finasteride appreciated. Switch to dutasteride November 2022. He has previously hadoffice cystoscopy done November 2022 shows large intravesical median lobe, friable tissue. Problem has been present for years. Problem is getting worse. CT scan Aug 2022: IMPRESSION: 1. Tiny calcified gallstone. 2. No definite evidence of acute abdominal or pelvic pathology. Remainder of findings as described. Current Outpatient Medications Medication Sig Dispense Refill Glucose Blood (ONETOUCH VERIO) STRP Use up to 4 times a day E11.9 400 Strip 3 ONETOUCH DELICA LANCETS 33G MISC Use up to 4 times a day 400 Each 3 escitalopram (LEXAPRO) 20 MG Tablet Take 1 Tab by mouth daily. 90 Tab 3 Amantadine HCl 100 MG Oral Capsule (Symmetrel) Take 1 Cap by mouth 2 times a day. (Patient taking differently: Take 1 Capsule by mouth once. One cap once a day) 60 Cap 0 Donepezil HCl 5 MG Oral Tablet (Aricept) Take 1 Tab by mouth at bedtime. Take with largest mealof the day. (Patient taking differently: Take 2 Tablets by mouth at bedtime. Take with largest mealof the day.) 30 Tab 0 Metoprolol Succinate ER 25 MG Oral Tablet Extended Release 24 Hour (toPROL XL) Take 1 Tablet bymouth in the morning. Dupixent 300 MG/2ML Subcutaneous Solution Prefilled Syringe (Dupilumab) 1 syringe subcutaneously every other week 4 mL 3 Cyanocobalamin 1000 MCG Oral Tablet (Cyanocobalamin) Take 2 Tablets by mouth in the morning. Atorvastatin Calcium 40 MG Oral Tablet (Lipitor) Take by mouth 1 Tablet in the morning. 90 Tablet 0 metFORMIN HCl ER 500 MG Oral Tablet Extended Release 24 Hour (Glucophage XR) Take one tablet bymouth daily 90 Tablet 1 Dutasteride 0.5 MG Oral Capsule (Avodart) Take 1 Capsule by mouth in the morning. 90 Capsule 3 Betamethasone Dipropionate 0.05 % External Ointment Apply to skin lesions and scalp lesions up to two times a day for no longer than 2 weeks at a time for itch (then take a 2 week break) 50 g 2 Benzonatate 100 MG Oral Capsule Take 2 Capsules by mouth 3 times a day as needed for Cough. 30 Capsule 1 Levalbuterol Tartrate 45 MCG/ACT Inhalation Aerosol (Xopenex HFA) Inhale 1 Puff by mouth every 6 hours as needed for Wheezing. Or coughing spells 15 g 12 buPROPion HCl ER (XL) 150 MG Oral Tablet Extended Release 24 Hour (Wellbutrin XL) Take 1 Tabletby mouth in the morning. 100 Tablet 3 Acetaminophen 500 MG Oral Tablet Take 2 Tablets by mouth every 8 hours as needed. Take every morning Lidocaine HCl 4 % External Cream Apply topically to affected area. Apply to Right knee every morning then as needed per package directions Torsemide 20 MG Oral Tablet (Demadex) Take 2 Tablets by mouth in the morning. 180 Tablet 3 Vitamin D (Cholecalciferol) 25 MCG (1000 UT) Oral Capsule Take 1 Capsule by mouth every evening. (Patient not taking: Reported on 04/12/2023) 30 Capsule 0 Ferrous Sulfate 325 (65 Fe) MG Oral Tablet (FeroSul) Take 1 Tablet by mouth daily with breakfast. 180 Tablet 1 Cephalexin 500 MG Oral Capsule Take 1 Capsule by mouth every evening. 30 Capsule 0 Pantoprazole Sodium 40 MG Oral Tablet Delayed Release (Protonix) TAKE ONE TABLET BY MOUTH EVERYDAY 90 Tablet 3 No current facility-administered medications for this visit. Review of patient's allergies indicates: Allergen Reactions Fabiano Inhibitors Cough Carbidopa W-Levodopa Constipation Nsaids Rash Contraindicated per short range air defense artillery Social History: Social History Tobacco Use Smoking status: Never Smokeless tobacco: Never Substance Use Topics Alcohol use: No Vaping/E-Cigarette Use Vaping/E-Cigarette Use Never User Vaping/E-Cigarette Substances Vaping/E-Cigarette Devices Family History 8 items Father ( at age 40) Hypertension Stroke Mother ( at age 86) Heart Disorder Lung Disorder Brother Daughter Daughter Brother No Past Hx Daughter Asthma Daughter Mental Disorder Past Surgical History: Procedure Laterality Date C-/T-SPINE PARAVERTEBRAL FACET INJ, 1 LEVEL 03/11/2015 C-/T-SPINE PARAVERTEBRAL FACET INJ, 1 LEVEL performed by Magdi Moreno Cousins, DO at OR [facility] CARPAL TUNNEL SURGERY Carpal Tunnel repair COLONOSCOPY, DIAGNOSTIC (RECTUM) 03/24/2015 normal, repeat 10 yrs/COLONOSCOPY FLEXIBLE PROXIMAL DIAGNOSTIC performed by Francis Perez MD at ENDOSCOPY [facility] COLONOSCOPY, DIAGNOSTIC (RECTUM) 09/12/2022 benign adenomatous polyp, diverticulosis, repeat 3 yrs / [facility] COLONOSCOPY, GI REFERRAL OP 10/23/2004 normal - repeat 10 years EGD, FLEXIBLE, DIAGNOSTIC N/A 09/09/2022 normal/EGD/MS INFORMATION hammer toe surgery INFORMATION 10/23/2004 right ankle fusion [place] LAMINECTOMY,GREATER THAN 2 SGMT,CERVICAL 01/25/2021 C3-6 laminectomy and posterior fusion, [facility] ME LAMINECTOMY,GREATER THAN 2 SGMT,CERVICAL N/A 01/25/2021 [facility] [place] C3-C6 lami REMOVE CATARACT, INSERT LENS PROSTH Right 05/22/2018 right EXTRACAPSULAR CATARACT REMOVAL WITH INTRAOCULAR LENS performed by Jasbir Maurer MD at OR [facility] REMOVE CATARACT, INSERT LENS PROSTH Left 06/05/2018 left EXTRACAPSULAR CATARACT REMOVAL WITH INTRAOCULAR LENS performed by Jasbir Maurer MD at OR [facility] REMOVE TONSILS & ADENOIDS, UNDER [...] Cognitive dysfunction 08/23/2018 Coronary artery disease involving [place] coronary artery of [place] heart without angina pectoris 03/21/2018 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 Dyslipidemia, goal LDL below 100 Epidermal cyst 09/21/2017 Flexural atopic dermatitis 11/29/2022 HTN, goal below 130/80 07/26/2018 HTN, goal below 140/90 Hx of Salmonella infection 05/16/2022 Other psoriasis Overweight (BMI 25.0-29.9) 07/13/2022 Prediabetes 06/29/2018 Primary osteoarthritis of both knees 03/21/2018 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 08/18/20172011 Seborrheic dermatitis 10/26/2018 Shingles 06/01/2019 right scalp Type 2 diabetes mellitus with hemoglobin A1c goal of less than 8.0% ([facility]) 07/26/2018 Patient Active Problem List Diagnosis Code Dyslipidemia E78.5 FABIANO inhibitor intolerance Z78.9 Cervical spinal stenosis M48.02 FABIANO (generalized anxiety disorder) F41.1 Primary parkinsonism ([facility]) G20 S/P CABG x 3 Z95.1 Primary osteoarthritis of both knees M17.0 Coronary artery disease involving [place] coronary artery of [place] heart without angina pectoris I25.10 HTN, goal below 130/80 I10 Type 2 diabetes mellitus with hemoglobin A1c goal of less than 8.0% ([facility]) 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, N13.8 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[facility]) G20, F02.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 Type 2 diabetes mellitus with diabetic peripheral angiopathy without gangrene ([facility]) E11.51 Gastro-esophageal reflux disease without esophagitis K21.9 Iron deficiency anemia D50.9 Hypertensive heart 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 rcphr1z chronic kidney disease ([facility]) I13.0, I50.32, N18.32 Overweight (BMI 25.0-29.9) E66.3 Chronic diastolic 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 ([facility]) I50.32, I25.10 Urge incontinence N39.41 Hematuria, gross R31.0 Atrial fibrillation ([facility]) I48.91 Flexural atopic dermatitis L20.89 Chronic kidney disease, stage 3b ([facility]) N18.32 Type 2 diabetes mellitus with stage 3b chronic kidney disease ([facility]) E11.22, N18.32 Immunodeficiency ([facility]) D84.9 Constitutional: (-) fever and (-) chills Eyes: (+) decreased vision ENT: (+) hearing loss Male : see HPI Musculoskeletal: (+) muscle weakness Neurology: (+) loss of balance Psychiatry: (+) memory loss Physical Exam Nursing note reviewed. Constitutional: General: He is not in acute distress. Appearance: Normal appearance. He is not toxic-appearing. HENT: Head: Normocephalic and atraumatic. Right Ear: External ear normal. Left Ear: External ear normal. Nose: Nose normal. Mouth/Throat: Mouth: Mucous membranes are moist. Eyes: Extraocular Movements: Extraocular movements intact. Cardiovascular: Pulses: Normal pulses. Pulmonary: Effort: Pulmonary effort is normal. Abdominal: Palpations: Abdomen is soft. Tenderness: There is no abdominal tenderness. Musculoskeletal: Cervical back: Normal range of motion and neck supple. Lymphadenopathy: Cervical: No cervical adenopathy. Skin: Coloration: Skin is not cyanotic or pale. Neurological: Mental Status: He is alert. Motor: Weakness present. Gait: Gait abnormal. Psychiatric: Attention and Perception: Attention normal. Mood and Affect: Mood and affect normal. Impression/Plan: 78 yo male with persistent BPH. Findings reviewed with patient and . Unfortunately, I suspect that TURP will be needed for significant change in symptoms. Patient and are justifiable concern over the patient's surgical risk in the context of his comorbidities and dementia. The risk of cognitive deterioration associated with anesthesia is also reviewed. Risks and benefits and technique for bipolar TURP are noted. Printed information provided. They will consider at more length and contact us if they wished to proceed. Patient will need clearance and procedure will have to take place at [facility] considering his morbidities. Will make a backup appointment in a few months time to check on progress.Contact us sooner with any changes or concerns. Above content is personally reviewed. Patient vocalizes good understanding of the treatment plan. Kalpesh Funes MD 2:11 PM 04/17/2023 documented in this encounter Nursing Notes * Xi Mcginnis LPN - 04/17/2023 3:20 PM EDT 4 month ret for BPH. Presents with spouse. C/o urgency, nocturia x 2. Taking dutasteride documented in this encounter Miscellaneous Notes * Pt Handout (on AVS) - Kalpesh Funes MD - 04/17/2023 4:12 PM EDT Images from the original note were not included. [address] Transurethral Resection of the Prostate (TURP) TURP is surgery to treat a noncancer (benign) enlargement of the prostate. This condition is calledBPH (benign prostatic hyperplasia).TURP removes prostate tissue to ease pressure on the urethra. This helps ease symptoms such as: Urinary blockage Frequent urination Weak urine stream TURP is the most common procedure for treating BPH. But some other procedures also help ease BPH symptoms. Your healthcare provider may do 1 of these instead of TURP. They include: TUIP (transurethral incision of the prostate) TUNA (transurethral needle ablation) Laser ablation Microwave therapy UroLift system (uses permanent implants to lift and move prostate tissue blocking the urethra) Rezum procedure (a water-vapor treatment that uses steam to reduce the size of the prostate ) Your healthcare provider can tell you more about these procedures. Your preparation and experience during surgery will be similar to the TURP procedure. Getting ready for surgery Your healthcare provider will tell you how to get ready for your procedure. You may be asked to stop taking certain medicines a few days before the procedure. Follow any directions you're given for not eating or drinking before the surgery. Follow any other instructions you?re given. During the TURP procedure You'll be given medicine (anesthesia) to keep you pain-free during surgery. It may be given intoyour spine (epidural). This isn't meant to put you to sleep. But it will numb the area where the surgery is being done. In some cases, general anesthesia is used. This will put you into a deep sleep-like state during the surgery. The anesthesia provider will talk with you about the pain medicine that's best for you. The surgeon puts a long, thin tube with a light at the end (cystoscope) into your urethra. This tube lets them see the blocked part of the urethra. A cutting tool is put into the tube. This is used to remove the extra prostate tissue. The cut pieces of tissue collect in the bladder. These pieces are washed away with fluids during the surgery. The tissue pieces are sent to the lab to be looked at to be sure they're cancer-free. Excess prostate tissue is removed during a TURP to let urine flow freely through the urethra. Possible risks and complications of prostate procedures Bleeding Infection Scarring of the urethra Retrograde ejaculation (see below) Can?t get or keep an erection (rare) Fluid is absorbed during the procedure (TURP syndrome) Lifelong incontinence (very rare) Retrograde ejaculation After some surgical treatments, you may have retrograde ejaculation. This is when semen goes into the bladder during ejaculation, instead of out of the penis. So there may be little or no semen when you ejaculate. You may not be able to have children (infertility). If you plan to have children, talk with your healthcare provider before having the TURP procedure. Otherwise, this isn't harmful to your bladder. You'll still be able to have an erection and feel an orgasm. Retrograde ejaculation canalso be a side effect of certain medicines. Last Reviewed Date: 07/23/[id number] [employer]. All rights reserved. This information is not intended as a substitute for professional medical care. Always follow your healthcare professional's instructions. documented in this encounter Plan of Treatment Upcoming Encounters Date Type Specialty Care Team Description 04/20/2023 Laboratory [facility] [address] [place] [address] 04/27/2023 Laboratory Laboratory [facility] [address] [place] [address] 05/02/2023 Telemedicine [facility] [place] So Ivey CRNP [address] [place] [address] Jahaira Nava, [address] [place] [address] 05/04/2023 Laboratory Laboratory Processing [facility] [address] [place] [address] 05/10/2023 Office Visit Cardiology Leah Aguilera CRNP [address] [place] [address] 05/11/2023 Laboratory Laboratory Processing [facility] [address] [place] [address] 05/18/2023 Laboratory Laboratory Processing [facility] [address] [place] [address] 05/23/2023 Home Visit [facility] [place] Mayuri Grant RN [address] [place] [address] 05/25/2023 Laboratory Laboratory Processing [facility] [address] [place] [address] 06/01/2023 Laboratory Laboratory Processing [facility] [address] [place] [address] 06/08/2023 Laboratory Laboratory Processing [facility] [address] [place] [address] 06/15/2023 Laboratory Laboratory Processing [facility] [address] [place] [address] 06/22/2023 Laboratory Laboratory Processing [facility] [address] [place] [address] 06/29/2023 Laboratory Laboratory Processing [facility] [address] [place] [address] 07/06/2023 Laboratory Laboratory Processing [facility] [address] [place] [address] 07/06/2023 Home Visit [facility], Betina Thakkar PA-C [address] [place] [address] 07/13/2023 Laboratory Laboratory Processing [facility] [address] [place] [address] 07/20/2023 Laboratory Laboratory Processing [facility] [address] [place] [address] 07/27/2023 Laboratory Laboratory Processing [facility] [address] [place] [address] 08/03/2023 Laboratory Laboratory Processing [facility] [address] [place] [address] 08/10/2023 Laboratory Laboratory Processing [facility] [address] [place] [address] 08/17/2023 Laboratory Laboratory Processing [facility] [address] [place] [address] 08/24/2023 Laboratory Laboratory Processing [facility] [address] [place] [address] 08/29/2023 Office Visit Urology Kalpesh Funes MD [address] [address] 08/31/2023 Laboratory Laboratory Processing [facility] [address] [place] [address] 09/07/2023 Laboratory Laboratory Processing [facility] [address] [place] [address] 09/14/2023 Laboratory Laboratory Processing [facility] [address] [place] [address] 09/21/2023 Laboratory Laboratory Processing [facility] [address] [place] [address] 09/21/2023 Office Visit Nephrology Nataly Stone PA-C [address] [place] [address] 09/28/2023 Laboratory Laboratory Processing [facility] [address] [place] [address] 10/05/2023 Laboratory Laboratory Processing [facility] [address] [place] [address] 10/12/2023 Laboratory Laboratory Processing [facility] [address] [place] [address] 10/19/2023 Laboratory Laboratory Processing [facility] [address] [place] [address] 11/03/2023 Nurse Only Ancillary Nurse [facility] [address] [place] [address] Scheduled Procedures Name Priority Associated [...] 023, 03/08/2019, 04/09/2014 CKD PHOS USE SMARTSET 29647 12/27/2023 12/26/2022, 0 06/21/2021 CKD HGB USE SMARTSET 81777 04/12/202404/12, 04/12/2023, 04/04/2023, Additional history exists COLONOSCOPY-EVERY [...] this encounter Medical Devices Implanted Type Area Brazer Induction Device Identifier Shelf Expiration Date Model / Serial / Lot Lens Intraoc 22.5 - [id number] - [id number] Implanted:Qty: 1 on 05/22/2018 by Jasbir Maurer MD at OR [facility] Right: Eye [employer] 11/22/2022 [id number] / [id number] / [id number] Lens Intraoc 21.0 - [id number] - [id number] Implanted:Qty: 1 on 06/05/2018 by Jasbir Maurer MD at OR [facility] Left: Eye [employer] 12/20/2022 [id number] / [id number] / documented as of this encounter Visit Diagnoses Diagnosis BPH with obstruction/lower urinary tract symptoms- Primary Hypertrophy of prostate with urinary obstruction and other lower urinary tract symptoms (LUTS) Urge incontinence documented in this encounter Advance Directives Latest [...] Agents on File Name Relationship Healthcare Agent [facility] Communication Ashley Jose Spouse Health Care Power of Attor mayela Care Teams Carpet Technician Relationship Specialty Start Date End Date Serjio Hinton MD [address] [place] [address] PCP - General Family Medicine 08/07/17 documented as of this encounter
--- OUTSIDE RECORDS SUMMARY | 2023-10-07 03:13 | External Medical Summary | Summary of Care ---
Author Name Unknown Organization [facility] Address [address] [place] [address] Phone [phone] Care Team Providers Care Rotating Field Assembler Name Role Phone Michael Hinton MD Primary Care Provider [phone] Encounter Details Date Type Department Care Team Description 04/13/2023 Orders Only Laboratory, [facility] [address] [facility] [place] [address] Odessa Chun PA-Davey [address] [place], [place] [id number] Iron deficiency anemia secondary to blood loss (chronic)* Allergies Active Allergy Reactions Severity Noted Date Comments Fabiano Inhibitors Cough 06/09/2017 Carbidopa W-Levodopa 03/17/2021 Constipation Nsaids Rash 05/17/2018 Contraindicated per aerospace control and warning systems documented as of this encounter (statuses as of 04/13/2023) Medications Medication Sig Dispensed Refills Start Date [...] mouth daily 90 Tablet 1 10/20/2022 Active Pantoprazole Sodium 40 MG Oral Tablet Delayed Release (Protonix) TAKE ONE TABLET BY MOUTH EVERY DAY 90 Tablet 1 10/25/2022 Active Dutasteride 0.5 MG Oral Capsule (Avodart) [...] mitral valve regurgitation,Krista nary artery disease involving [place] coronary artery of [place] heart without angina pectoris,Paroxysma l atrial fibrillation [...] every evening. 30 Capsule 0 03/28/2023 Active documented as of this encounter (statuses as of 04/13/2023) Active Problems Problem Noted Date Immunodeficiency 03/28/2023 [...] both knees Coronary artery disease invo lving [place] coronary artery of [place] heart without angina pectoris 03/21/2018 Last Assessment [...] as of this encounter (statuses as of 04/13/2023) Resolved Problems Problem Noted Date Resolved Date [...] scanned document from 11/13/[address] bains [facility]. 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 [...] as of this encounter (statuses as of 04/13/2023) Immunizations Name Administration Dates Next Due COVID-19 [...] Encounters Date Type Specialty Care Team Description 04/17/2023 Office Visit Urology Kalpesh Funes MD [address] [place] [address] 04/20/2023 Laboratory [facility] [address] [place] [address] 04/27/2023 Laboratory [facility] [address] [place] [address] 05/02/2023 Telemedicine [facility] So Ivey CRNP [address] [facility] [place] [address] Jahaira Nava, [facility] [address] [place] [address] 05/04/2023 Laboratory [facility] [address] [place] [address] 05/10/2023 Office Visit Cardiology Leah Aguilera CRNP [address] [facility] [place] [address] 05/11/2023 Laboratory [facility] [address] [place] [address] 05/18/2023 Laboratory [facility] [address] [place] [address] 05/23/2023 Home Visit [facility] Mayuri Grant, RN [address] [facility] [place] [address] 05/25/2023 Laboratory Laboratory Processing [facility], [facility] [address] [place] [address] 06/01/2023 Laboratory Laboratory Processing [facility] [address] [place] [address] 06/08/2023 Laboratory Laboratory Processing [facility], [facility] [address] [place] [address] 06/15/2023 Laboratory Laboratory Processing [facility], [facility] [address] [place] [address] 06/22/2023 Laboratory Laboratory Processing [facility], [facility] [address] [place] [address] 06/29/2023 Laboratory Laboratory Processing [facility], [facility] [address] [place] [address] 07/06/2023 Laboratory Laboratory Processing [facility], [facility] [address] [place] [address] 07/06/2023 Home Visit [facility] Betina Jacob PA-C [address] [place] [address] 09/21/2023 Office Visit Nephrology ZemaNataly johnson PA-C [address] [facility] [place], [place] [phone] 11/03/2023 Nurse Only Ancillary Nurse Jeronimo [facility] Niru [address] [place] [address] Scheduled Orders Name Type Priority Associated Diagnoses Orde r Schedule CBC WITH WBC DIFFERENTIAL Lab Routine Iron deficiency anemia secondary to blood loss (chronic) Every Week for 6 Occurrences starting 04/13/2023 until 04/13/2024 FERRITIN Lab Routine Iron deficiency anemia secondary to blood loss (chronic) Every Week for 6 Occurrences starting 04/13/2023 until 04/13/2024 Scheduled Procedures Name Priority Associated Diagnoses Date/Ti [...] 023, 03/08/2019, 04/09/2014 CKD PHOS USE SMARTSET 17171 12/27/2023 12/26/2022, 0 06/21/2021 CKD HGB USE SMARTSET 85715 04/12/202404/12, 04/12/2023, 04/04/2023, Additional history exists COLONOSCOPY-EVERY [...] this encounter Medical Devices Implanted Type Area Investigative Reporter Device Identifier Shelf Expiration Date Model / Serial / Lot Lens Intraoc 22.5 - [id number] - [id number] Implanted:Qty: 1 on 05/22/2018 by Jasbir Maurer MD at OR [facility] Right: Eye [employer] 11/22/2022 [id number] / [id number] / [id number] Lens Intraoc 21.0 - [id number] - [id number] Implanted:Qty: 1 on 06/05/2018 by Jasbir Maurer MD at OR [facility] Left: Eye [employer] 12/20/2022 [id number] / [id number] / documented as of this encounter Visit Diagnoses Diagnosis Iron deficiency anemia secondary to blood loss (chronic)- Primary documented in this encounter Advance Directives [...] Care Power of Attor mayela Care Teams Rotating Field Assembler Relationship Specialty Start Date End Date Michael Hinton MD [address] [place] [address] PCP - General Family Medicine 08/07/17 documented as of this encounter
--- OUTSIDE RECORDS SUMMARY | 2023-10-07 03:13 | External Medical Summary | Summary of Care ---
Author Name Unknown Organization [facility] Address [address] [place] [address] Phone [phone] Care Team Providers Care Telephone Maintainer Name Role Phone Michael Hinton MD Primary Care Provider [phone] Reason for Visit * Reason Comments [facility]: Maintenance Encounter Details Date Type Department Care Team Description 04/12/2023 Home Visit [facility], [facility] [address] [place] [address] Mayuri Grant, RN [address] [place] [address] Allergies Active Allergy Reactions Severity Noted Date Comments Fabiano Inhibitors Cough 06/09/2017 Carbidopa W-Levodopa 03/17/2021 Constipation Nsaids Rash 05/17/2018 Contraindicated per telephone station repairer documented as of this encounter (statuses as of 04/18/2023) Medications Medication Sig Dispensed Refills Start Date End Date Status Glucose Blood (ONETOUCH VERIO) STRPIndications: Type 2 diabetes mellitus with hemoglobin A1c goal of less than 8.0% ([facility]) Use up to 4 times a day E11.9 400 Strip 3 8 Active ONETOUCH DELICA LANCETS 33G MISCIndications: Type 2 diabetes mellitus with hemoglobin A1c goal of less than 8.0% (HCC) Use up to 4 times a day 400 Each 3 8 Active escitalopram (LEXAPRO) 20 MG Tablet Take 1 Tab by mouth daily. 90 Tab 3 0 Active Amantadine HCl 100 MG Oral Capsule (Symmetrel)Indic ations:Primary parkinsonism (HCC) Take 1 Cap by mouth 2 times a day. 60 Cap 0 1 Active Additional Information Patient taking differently:100 mg OralONCE, One cap once a day, Reported on 11/29/2022 Donepezil HCl 5 MG Oral Tablet (Aricept)Indicat ions: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HCC),Hallucinat ions Take 1 Tab by mouth at bedtime. Take with largest meal of the day. 30 Tab 0 1 Active Additional Information Patient taking differently: 10 mgOral HS, Take with largest meal of the day., Reported on 11/29/2022 Metoprolol Succinate ER 25 MG Oral Tablet Extended Release 24 Hour (toPROL XL) Take 1 Tablet by mouth in the morning. 0 1 Active Dupixent 300 MG/2ML Subcutaneous Solution Prefilled [...] Tablet in the morning. 90 Tablet 0 2 Active metFORMIN HCl ER 500 MG Oral Tablet Extended Release 24 Hour (Glucophage XR) Take one tablet by mouth daily 90 Tablet 1 2 Active Dutasteride 0.5 MG Oral Capsule (Avodart) Take 1 Capsule by mouth in the morning. 90 Capsule 3 3 Active Betamethasone Dipropionate 0.05 % External Ointment Apply to skin lesions and scalp lesions up to two times a day for no longer than 2 weeks at a time for itch (then take a 2 week break) 50 g 2 3 Active Benzonatate 100 MG Oral CapsuleIndicatio ns:Viral URI with cough Take 2 Capsules by mouth 3 times a day as needed for Cough. 30 Capsule 1 3 Active Additional Information Patient not taking.Reported on 04/17/2023 Levalbuterol Tartrate 45 MCG/ACT Inhalation Aerosol (Xopenex HFA)Indications: Pneumonia of left lower lobe due to infectious organism Inhale 1 Puff by mouth every 6 hours as needed for Wheezing. Or coughing spells 15 g 12 3 Active buPROPion HCl ER (XL) 150 MG Oral Tablet Extended Release 24 Hour (Wellbutrin XL) Take 1 Tablet by mouth in the morning. 100 Tablet 3 3 Active Acetaminophen 500 MG Oral Tablet Take 2 Tablets by mouth every 8 hours as needed. Take every morning 0 Active Lidocaine HCl 4 % External Cream Apply topically to affected area. Apply to Right knee every morning then as needed per package directions 0 Active Torsemide 20 MG Oral Tablet (Demadex)Indicat ions:Chronic diastolic 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 (HCC),Acute on chronic congestive heart failure, unspecified heart failure type (HCC),Nonrheumat ic mitral valve regurgitation,Co ronary artery disease involving [place] coronary artery of [place] heart without angina pectoris,Paroxys mal atrial fibrillation (HCC),Stage 3b chronic kidney disease (HCC) Take 2 Tablets by mouth in the morning. 180 Tablet 3 3 Active Vitamin D (Cholecalciferol ) 25 MCG [...] BY MOUTH EVERY DAY 90 Tablet 1 3 04/15/20 23 Discontinued valACYclovir HCl 1 GM Oral Tablet (Valtrex) Take 1 Tablet by mouth in the morning and 1 Tablet before bedtime. for cold sores. 2 Tablet 1 3 04/12/20 23 Discontinued documented as of this encounter (statuses as of 04/18/2023) Active Problems Problem Noted Date Immunodeficiency 03/28/2023 [...] as of this encounter (statuses as of 04/18/2023) Resolved Problems Problem Noted Date Resolved Date [...] document from 11/13/[address] bains, [facility] 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 [...] as of this encounter (statuses as of 04/18/2023) Immunizations Name Administration Dates Next Due COVID-19 mRNA, LNP-s, No Pre serve, 2-Dose Series ([employer]) 11/03/2021,12/19/2020,11/28/2020 Covid-19 Ad26, Single Dose (Soy[employer]J&J) 12/19/2020,11/28/2020 [...] Sign Reading Time Taken Comments Blood Pressure - - Pulse - - Temperature 36.4 C (97.5 F) 04/12/2023 11:51 AM E DT Respiratory Rate - - Oxygen Saturation - - Inhaled Oxygen Concentration - - Weight 81.2 kg (179 lb) 04/12/2023 11:51 AM EDT Height - - Body Mass Index 29.79 12/01/2022 10:58 AM EST documented in this encounter Progress Notes * Mayuri Grant RN - 04/12/2023 11:34 AM EDT [facility] [employer] Assistant Monthly Visit Date: 04/12/2023 Time: 11:34 AM Name: Jesus Jose : 1945 Situation: return Background: CAD, HTN, wandering atrial pacemaker, DM2, CKD3a, iron deficiency anemia, OA b/l knees, BPH, dementia r/t Parkinson's dx, CHF, neck surgery 2018 [facility] Enrollment Date: 03/03/21 ([facility]) Utilization: 04/30/22 - salmonella enteritis/bacteremia, CHF, d/c home 05/12/22 05/30/22 #1/3 iron infusion as op (ordered by Dr. Rueda) 07/05- - [facility] - Dental infection (MRSA), had tooth extraction in ER, CHF, chronic iron deficiency anemia, d/c home on o2 08/08/22 - dx with covid - declined to take Paxlovid 08/23/22 - laxix and kcl increased to M/W/F after one day of extra dose 08/29/22 - Current Health Monitor captured hypoxia and bradycardia, Zio Patch applied(7 days), instructed to wear o2 2lnc qhs, went to [facility] for EKG at clinic - found to be in afib, started on Xarelto, to keep Toprol XL dose at 25mg 09/02- - CHF - lasix increased to 40mg every other day 09/08/22- 09/13/22- first apt with [facility] CHF clinic - weakness, falls - sent to [facility] -GI bleed, acute blood loss anemia, hgb 4.3,rec'd multipleunits pRBCs,unable to locate bleed with EGD, hgb improved to 9.8, Eliquis resumed, home with 10/07/22 - iron infusion 10/20/22 - Cardiology - asa, Eliquis stopped by Dr. Bains - went to ER as instructed by Dr. Bains for wheezing, did not stay d/t long wait 10/21/22 - iron infusion, iv diuretic, 1 unit RBCs at [facility] 10/25/22- high sodium intake - DTP started: lasix 80mg x 3 days 10/28/22 -iron infusion at [facility] 11/08/22 - changed to torsemide, spironolactone 01/24 - 06/14 - [facility] - Adenovirus infection with acute bronchitis, dysphagia, iron def anemia, had iron infusion, home on doxy 02/10/23 - Cellulitis (saw Derm), Keflex stopped while taking doxy 100mg bid x 10 days then resume keflex 02/13/23 - CHF exacerbation, DTP 03/06/23 - [facility] scales ordered 03/10/23 - Pneumonia, augmentin (went to clinic for tx) 03/15/23 - Rx for Valtrex, mouth sores 03/16/23 - Torsemide increased to 60mg daily by Cardiology (has since been decreased to 40mg day d/tdehydration) Assessment: Had tubes placed in ears yesterday Had some dried blood on outside of ears this morning R>L Having worsening R knee pain and ''gives out on me'' Has apt with Dr. Beach with [facility] on May 01 Reports has overall been feeling ''pretty good'' Wearing tubigrip Wt Readings from Last 7 Encounters: 04/12/23 81.2 kg (179 lb) 03/22/23 83.1 kg (183 lb 3.2 oz) 03/21/23 81.2 kg (179 lb) 03/16/23 82.1 kg (181 lb) 03/15/23 81 kg (178 lb 9.6 oz) 03/10/23 85.2 kg (187 lb 12.8 oz) 02/28/23 80.7 kg (178 lb) Physical Exam: Temp 36.4 C (97.5 F) | Wt 81.2 kg (179 lb) | BMI 29.79 kg/m | BSA 1.93 m Pain 0 Physical Exam Constitutional: Appearance: Normal appearance. HENT: Head: Normocephalic. Eyes: Extraocular Movements: Extraocular movements intact. Cardiovascular: Rate and Rhythm: Normal rate and regular rhythm. Heart sounds: Murmur heard. Pulmonary: Effort: Pulmonary effort is normal. Comments: Few crackles noted at the left base. Otherwise, clear. No wheezing. Abdominal: General: Bowel sounds are normal. Palpations: Abdomen is soft. Musculoskeletal: Cervical back: Neck supple. Right lower leg: Edema present. Left lower leg: Edema present. Comments: Plus one pitting edema in the lower extremities right greater than left. No erythema appreciated. Skin is intact. Skin: Capillary Refill: Capillary refill takes less than 2 seconds. Findings: No rash. Neurological: General: No focal deficit present. Mental Status: He is alert. Comments: Alert and answering questions appropriately. No focal motor Deficits noted. Psychiatric: Mood and Affect: Mood normal. Behavior: Behavior normal. Thought Content: Thought content normal. Judgment: Judgment normal. Problems/Symptoms: Review of Systems Constitutional: Negative. HENT: Positive for hearing loss (b/l). Negative for congestion, mouth sores and sore throat. Eyes: Negative. Respiratory: Positive for cough (clear to light yellow sputum) and shortness of breath (MUSTAFA at baseline). Negative for choking and wheezing. Cardiovascular: Positive for leg swelling (+2 b/l le pitting - at baseline). Negative for chest pain and palpitations. Gastrointestinal: Negative for abdominal distention. Endocrine: Negative. Genitourinary: Negative. Musculoskeletal: Positive for arthralgias (R knee) and myalgias (legs likely d/t increased edema). Skin: Negative for wound. Allergic/Immunologic: Negative. Neurological: Negative. Negative for weakness. Psychiatric/Behavioral: Negative for confusion. Medication Reconciliation: (See medication list) Does patient take medications as ordered: Yes Patient Well Being: no change in living shivam [facility] Completed this Visit: No. Routine visit and No falls since last visit Advanced Care Planning: No documentation, deferred. Reinforcement/Education: Reviewed HF symptom monitoring: -Weigh self [...] weekly cbcd and ferritin, message to Amy Tyler, [employer] to fax to Dr. Camacho weekly O2 2lnc qhs - Adonay's - [phone], wear at hs and during day in recliner (naps frequently) Fall precautions-use walker at all time Elevate bilateral LE when sitting in recliner Tubigrip to LE's daily Low Na diet,High protein, low sugar diet Patient's Goals of Care: Use cane instead of walker Have more energy "To do my yardwork" Patient's 'Red Flags': Wt increased to 184lbs falls Increased edema Increased MUSTAFA Weakness, feeling cold - gets with infection Home Interventions Provided: Consulted PCP/Specialist Reinforced current Plan of Care, including self-management and medication regimen Updated Exacerbation Plan Atorvastatin clarified, pt is to be taking Patient Needs to Remember: Call [facility] with red flags Referrals Needed: Other none Follow Up: Is there cellular connectivity/connectivity in the home? Yes Does the patient have internet in the home? Yes Patient encouraged to call the intake phone number for all urgent but not emergent issues. Is the patient new to [facility] within the last 30 days? No, Assess appropriateness for upcoming telehealth visits. Cancel telehealth visits & schedule home visit with care steam shovel oiler(s)as indicated. Provider is in agreement with Plan of Care: Yes Scheduled to follow up with patient 05/02 with HALLIE, 05/23 with RNCM Mayuri Grant RN 04/12/2023 11:34 AM documented in this encounter Plan of Treatment Upcoming Encounters Date Type Specialty Care Team Description 04/20/2023 Laboratory Laboratory Processing [facility] Draw [address] [place] [address] 04/27/2023 Laboratory Laboratory Processing [facility] [address] [place] [address] 05/02/2023 Telemedicine [facility] So Ivey CRNP [address] [place] [address] Jahaira Nava, [address] [place] [address] 05/04/2023 Laboratory Laboratory [facility] [address] [place] [address] 05/10/2023 Office Visit Cardiology Leah Aguilera CRNP [address] [place] [address] 05/11/2023 Laboratory Laboratory [facility] [address] [place] [address] 05/18/2023 Laboratory Laboratory [facility] [address] [place] [address] 05/23/2023 Home Visit [facility] Mayuri Grant RN [address] [place] [address] 05/25/2023 Laboratory Laboratory [facility] [address] [place] [address] 06/01/2023 Laboratory Laboratory Processing [facility] [address] [place] [address] 06/08/2023 Laboratory Laboratory [facility] [address] [place] [address] 06/15/2023 Laboratory Laboratory [facility] [address] [place] [address] 06/22/2023 Laboratory Laboratory [facility] [address] [place] [address] 06/29/2023 Laboratory Laboratory Processing [facility] [address] [place] [address] 07/06/2023 Laboratory Laboratory [facility] [address] [place] [address] 07/06/2023 Home Visit [facility], Betina Thakkar PA-C [address] [facility] [place] [address] 07/13/2023 Laboratory Laboratory Processing [facility] [address] [place] [address] 07/20/2023 Laboratory Laboratory [facility] [address] [place] [address] 07/27/2023 Laboratory Laboratory [facility] [address] [place] [address] 08/03/2023 Laboratory Laboratory [facility] [address] [place] [address] 08/10/2023 Laboratory Laboratory [facility] [address] [place] [address] 08/17/2023 Laboratory Laboratory [facility] [address] [place] [address] 08/24/2023 Laboratory Laboratory [facility] [address] [place] [address] 08/29/2023 Office Visit Urology Kalpesh Funes MD [address] [address] 08/31/2023 Laboratory Laboratory [facility] [address] [place] [address] 09/07/2023 Laboratory Laboratory [facility] [address] [place] [address] 09/14/2023 Laboratory Laboratory [facility] [address] [place] [address] 09/21/2023 Laboratory Laboratory [facility] [address] [place] [address] 09/21/2023 Office Visit Nephrology Nataly Stone PA-C [address] [place] [address] 09/28/2023 Laboratory Laboratory [facility] [address] [place] [address] 10/05/2023 Laboratory Laboratory [facility] [address] [place] [address] 10/12/2023 Laboratory Laboratory [facility] [address] [place] [address] 10/19/2023 Laboratory Laboratory Processing [facility] Draw [address] [place] [address] 11/03/2023 Nurse Only Ancillary Nurse Jeronimo [facility] Niru [address] [place] [address] Scheduled Procedures Name Priority Associated Diagnoses Date/Ti [...] 023, 03/08/2019, 04/09/2014 CKD PHOS USE SMARTSET 94432 12/27/2023 12/26/2022, 0 06/21/2021 CKD HGB USE SMARTSET 19205 04/12/202404/12, 04/12/2023, 04/04/2023, Additional history exists COLONOSCOPY-EVERY [...] this encounter Medical Devices Implanted Type Area Blocklayer Device Identifier Shelf Expiration Date Model / Serial / Lot Lens Intraoc 22.5 - [id number] - [id number] Implanted:Qty: 1 on 05/22/2018 by Jasbir Maurer MD at OR [facility] Right: Eye [employer] 11/22/2022 [id number] / [id number] / [id number] Lens Intraoc 21.0 - [id number] - [id number] Implanted:Qty: 1 on 06/05/2018 by Jasbir Maurer MD at OR [facility] Left: Eye [employer] 12/20/2022 [id number] / [id number] / documented as of this encounter Advance [...] Care Power of Attor mayela Care Teams Telephone Maintainer Relationship Specialty Start Date End Date Michael Hinton MD [address] [place] [address] PCP - General Family Medicine 08/07/17 documented as of this encounter
--- OUTSIDE RECORDS SUMMARY | 2023-10-07 03:13 | External Medical Summary | Summary of Care ---
Author Name Unknown Organization [facility] Address [address] [place] [address] Phone [phone] Care Team Providers Care Color Print Inspector Name Role Phone Serjio Hinton MD Primary Care Provider [phone] [phone] Reason for Visit * Reason Comments eRx-Medication Refill Encounter Details Date Type Department Care Team Description 04/14/2023 Refill Family Practice [facility] [address] [facility] [address] Serjio Hinton MD [address] [place] [address] Allergies Active Allergy Reactions Severity Noted Date Comments Fabiano Inhibitors Cough 06/09/2017 Carbidopa W-Levodopa 03/17/2021 Constipation Nsaids Rash 05/17/2018 Contraindicated per fuel cell engineer documented as of this encounter (statuses as of 04/15/2023) Medications Medication Sig Dispensed Refills Start Date End Date Status Glucose Blood (ONETOUCH VERIO) STRPIndications: Type 2 diabetes mellitus with hemoglobin A1c goal of less than 8.0% ([facility]) Use up to 4 times a day E11.9 400 Strip 3 8 Active ONETOUCH DELICA LANCETS 33G MISCIndications: Type 2 diabetes mellitus with hemoglobin A1c goal of less than 8.0% ([facility]) Use up to 4 times a day [...] congestive heart failure, unspecified heart failure type ([facility]),Nonrheumat ic mitral valve regurgitation,Co 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,Paroxys mal atrial fibrillation ([facility]),Stage 3b chronic kidney disease (HCC) Take 2 [...] MOUTH EVERY DAY 90 Tablet 3 3 Active Pantoprazole Sodium 40 MG Oral Tablet Delayed Release (Protonix) TAKE ONE TABLET BY MOUTH EVERY DAY 90 Tablet 1 3 04/15/20 23 Discontinued documented as of this encounter (statuses as of 04/15/2023) Active Problems Problem Noted Date Immunodeficiency 03/28/2023 [...] both knees 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 03/21/2018 Last Assessment [...] as of this encounter (statuses as of 04/15/2023) Resolved Problems Problem Noted Date Resolved Date [...] as of this encounter (statuses as of 04/15/2023) Immunizations Name Administration Dates Next Due COVID-19 mRNA, LNP-s, No Pre serve, 2-Dose Series (eMoov) 11/03/2021,12/19/2020,11/28/2020 Covid-19 Ad26, Single Dose (Soy/J&J) 12/19/2020,11/28/2020 [...] encounter Miscellaneous Notes * Telephone Encounter - Maia Mccall [facility] - 04/15/2023 12:19 AM EDT Signed Prescriptions: Disp Refills Pantoprazole Sodium 40 MG Oral Tablet Princess*90 Tab*3 Sig: TAKE ONE TABLET BY MOUTH EVERY DAYAuthorizing Provider: SERJIO HINTON User: MAIA MCCALL documented in this encounter Plan of Treatment Upcoming Encounters Date Type Specialty Care Team Description 04/17/2023 Office Visit Urology Kalpesh Funes MD 27 [facility] [address] [place] [address] 04/20/2023 Laboratory Laboratory Processing [facility] Mobile Home Draw [address] [place] [address] 04/27/2023 Laboratory Laboratory Processing [facility] Draw [address] [place] [address] 05/02/2023 Telemedicine [facility] [place] [id number] Jahaira Nava, [address] [place] [address] 05/04/2023 Laboratory Laboratory Processing [facility] [address] [place] [address] 05/10/2023 Office Visit Cardiology Leah Aguilera CRNP [address] [place] [address] 05/11/2023 Laboratory Laboratory Processing [facility] [address] [place] [address] 05/18/2023 Laboratory Laboratory Processing [facility] [address] [place] [address] 05/23/2023 Home Visit [facility] Mayuri Grant RN [address] [place] [address] 05/25/2023 Laboratory Laboratory Processing [facility] [address] [place] [address] 06/01/2023 Laboratory Laboratory Processing [facility] Draw [address] [place] [address] 06/08/2023 Laboratory Laboratory Processing [facility] [address] [place] [address] 06/15/2023 Laboratory Laboratory Processing [facility] [address] [place] [address] 06/22/2023 Laboratory Laboratory Processing [facility] Draw [address] [place] [address] 06/29/2023 Laboratory Laboratory Processing [facility] [place] Draw [address] [place] [address] 07/06/2023 Laboratory Laboratory Processing [facility] Home Draw [address] [place] [address] 07/06/2023 Home Visit [facility] Cecil, Betina Thakkar PA-C [address] [place] [address] 09/21/2023 Office Visit Nephrology Chase, Nataly Christine PA-C [address] [place] [address] 11/03/2023 Nurse Only Ancillary Jeronimo, Nurse Annual Wellness Niru [address] [facility] [place] [address] Scheduled Procedures Name Priority Associated Diagnoses Date/Ti [...] 023, 03/08/2019, 04/09/2014 CKD PHOS USE SMARTSET 48642 12/27/2023 12/26/2022, 0 06/21/2021 CKD HGB USE SMARTSET 93209 04/12/202404/12, 04/12/2023, 04/04/2023, Additional history exists COLONOSCOPY-EVERY [...] this encounter Medical Devices Implanted Type Area Configuration Management Advisor Device Identifier Shelf Expiration Date Model / Serial / Lot Lens Intraoc 22.5 - [id number] - [id number] Implanted:Qty: 1 on 05/22/2018 by Jasbir Maurer MD at OR [facility] Right: Eye [employer]OM[employer] 11/22/2022 [id number] / [id number] / [id number] Lens Intraoc 21.0 - [id number] - [id number] Implanted:Qty: 1 on 06/05/2018 by Jasbir Maurer MD at OR [facility] Left: Eye BAUSCH [employer] LOMB 12/20/2022 [id number] / [id number] / documented as of this encounter Advance [...] Care Power of Attor mayela Care Teams Color Print Inspector Relationship Specialty Start Date End Date Serjio Hinton MD [address] [place] [address] PCP - General Family Medicine 08/07/17 documented as of this encounter
--- OUTSIDE RECORDS SUMMARY | 2023-10-07 03:14 | External Medical Summary | Summary of Care ---
Author Name Unknown Organization [facility] Address [address] [place] [address] Phone [phone] Care Team Providers Care Systems Technician Name Role Phone Michael Hinton MD Primary Care Provider [phone] Encounter Details Date Type Department Care Team Description 04/12/2023 Orders Only [facility] [place] [address] [place] [place] [address] Mayuri Grant, RN [address] [place] [address] Type 2 diabetes mellitus with diabetic peripheral angiopathy without gangrene, without long-term current use of insulin ([facility] Allergies Active Allergy Reactions Severity Noted Date Comments Fabiano Inhibitors Cough 06/09/2017 Carbidopa W-Levodopa 03/17/2021 Constipation Nsaids Rash 05/17/2018 Contraindicated per loan originator documented as of this encounter (statuses as of 04/12/2023) Medications Medication Sig Dispensed Refills Start Date End Date Status Glucose Blood (ONETOUCH VERIO) STRPIndications:Ty pe 2 diabetes mellitus with hemoglobin A1c goal of less than 8.0% ([facility]) Use up to 4 times a day E11.9 400 Strip 3 08/29/2018 Active ONETOUCH DELICA LANCETS 33G MISCIndications:Ty pe 2 diabetes mellitus with hemoglobin A1c goal of less than 8.0% ([facility]) Use up to 4 times a day [...] mitral valve regurgitation,Krista nary artery disease involving enterprise coronary artery of enterprise heart without angina pectoris,Paroxysma l atrial fibrillation [...] as of this encounter (statuses as of 04/12/2023) Active Problems Problem Noted Date Immunodeficiency 03/28/2023 [...] both knees Coronary artery disease invo lving enterprise coronary artery of enterprise heart without angina pectoris 03/21/2018 Last Assessment [...] as of this encounter (statuses as of 04/12/2023) Resolved Problems Problem Noted Date Resolved Date [...] scanned document [place] 11/13/[address] [place] [facility] [place] 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 [...] as of this encounter (statuses as of 04/12/2023) Immunizations Name Administration Dates Next Due COVID-19 mRNA, LNP-s, No Pre serve, 2-Dose Series ([employer]) 11/03/2021,12/19/2020,11/28/2020 Covid-19 Ad26, Single Dose (Soy/J&J) 12/19/2020,11/28/2020 [...] [address] [place] [address] [place] [address] 05/02/2023 Telemedicine [facility] So Ivey CRNP [address] [place] [address] Jahaira Nava, [facility] [address] [place] [address] 05/10/2023 Office Visit Cardiology Leah Aguilera CRNP [address] [place] [address] 05/23/2023 Home Visit [facility] Mayuri Grant RN [address] [place] [address] 07/06/2023 Home Visit [facility] Betina Jacob PA-C [address] [place] [address] 09/21/2023 Office Visit Nephrology Nataly Stone PA-C [address] [place] [address] 11/03/2023 Nurse Only Lily Decker, Nurse Annual Wellness Niru [address] [place] [address] Pending Results Name Type Priority Associated Diagnoses Date /Time HEMOGLOBIN A1C Lab Routine Type 2 diabetes mellitus with diabetic peripheral angiopathy without gangrene, without long-term current use of insulin (HCC) 04/12/2023 1:00 PM EDT Scheduled Orders Name Type Priority Associated Diagnoses Orde r Schedule HEMOGLOBIN A1C Lab Routine Type 2 diabetes mellitus with diabetic peripheral angiopathy without gangrene, without long-term current use of insulin (HCC) Expected: 04/12/2023 (Approximate), Expires: 04/11/2024 Scheduled Procedures Name Priority Associated Diagnoses Date/Ti me COLONOSCOPY FLEXIBLE PROXIMAL DIAGNOSTIC Recall History of colon polyps Health Maintenance Due Date Last Done Comments Hepatitis C Screening 1963 DIABETES-FOOT EXAM 03/27/2021 03/27/2020, 08/23/2018 COVID-19 Vaccine (5 - Pfizer series) 12/29/2021 11/03/2021, 12/19/2020, 12/19/2020, Additional history exists HbA1c 06/28/2023 12/26/2022, 02/22, 09/14/2021, Additional history exists GFR 10/04/2023 04/04/2023, 02/21, 03/09/2023, Additional history exists DIABETES-EYE EXAM 11/01/2023 11/01/2022, , 08/04/2011, Additional history exists Depression Screening, Annual for Pts 12 and Over 11/02/2023 11/02/2022 Yearly B-12 12/12/2023 12/12/2022, 09/23, 05/20/2022, Additional history exists Albumin/Creatinine Ratio 12/27/2023 023, 03/08/2019, 04/09/2014 CKD PHOS USE SMARTSET 64324 12/27/2023 12/26/2022, 0 06/21/2021 CKD HGB USE SMARTSET 84043 04/04/202404/12, 04/12/2023, 04/04/2023, Additional history exists COLONOSCOPY-EVERY 3 [...] this encounter Medical Devices Implanted Type Area Print Manager Device Identifier Shelf Expiration Date Model / Serial / Lot Lens Intraoc 22.5 - [id number] - [id number] Implanted:Qty: 1 on 05/22/2018 by Jasbir Maurer MD at OR [facility] Right: Eye [employer]CH [employer] LOMB 11/22/2022 [id number] / [id number] / [id number] Lens Intraoc 21.0 - [id number] - [id number] Implanted:Qty: 1 on 06/05/2018 by Jasbir Maurer MD at OR [facility] Left: Eye BAUSCH [employer] LOMB 12/20/2022 [id number] / [id number] / documented as of this encounter Visit Diagnoses Diagnosis Type 2 diabetes mellitus with diabetic peripheral angiopathy without gangrene, without long-term current use of insulin (HCC)- Primary documented in this encounter Advance Directives [...] Care Power of Attor mayela Care Teams Systems Technician Relationship Specialty Start Date End Date Michael Hinton MD [address] [place] [address] PCP - General Family Medicine 08/07/17 documented as of this encounter
--- OUTSIDE RECORDS SUMMARY | 2023-10-07 03:14 | External Medical Summary | Summary of Care ---
Author Name Unknown Organization [facility] Address [address] [place] [address] Phone [phone] Care Team Providers Care Superintendent Name Role Phone Michael Hinton MD Primary Care Provider [phone] Reason for Visit * Reason Onset Date Comments [facility]: Maintenance 04/12/2023 Encounter Details Date Type Department Care Team Description 04/12/2023 Telephone [facility], [facility] [address] [facility] [place] [address] Maral Grant, RN [address] [place] [address] [facility]: Maintenance Allergies Active Allergy Reactions Severity Noted Date Comments Fabiano Inhibitors Cough 06/09/2017 Carbidopa W-Levodopa 03/17/2021 Constipation Nsaids Rash 05/17/2018 Contraindicated per valve lapper documented as of this encounter (statuses as of 04/12/2023) Medications Medication Sig Dispensed Refills Start Date End Date Status Glucose Blood (ONETOUCH VERIO) STRPIndications:Ty pe 2 diabetes mellitus with hemoglobin A1c goal of less than 8.0% ([facility]) Use up to 4 times [...] mitral valve regurgitation,Krista nary artery disease involving [place] coronary artery of [place] heart without angina pectoris,Paroxysma l atrial fibrillation [...] both knees Coronary artery disease invo lving [place] coronary artery of [place] heart without angina pectoris 03/21/2018 Last Assessment [...] scanned document from 11/13/[address] b[place], [facility] [place]. 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 [...] mRNA, LNP-s, No Pre serve, 2-Dose Series (GüvenRehberi) 11/03/2021,12/19/2020,11/28/2020 Covid-19 Ad26, Single Dose (Soy/J&J) 12/19/2020,11/28/2020 [...] Miscellaneous Notes * Telephone Encounter - HALLIE Ross - 04/12/2023 12:45 PM EDT Covering for HALLIE Ghosh. Patient has a history of CAD with CABG. His goal LDL is < 70. He should be taking Atorvastatin 40 mg daily. Thanks, HALLIE Ross * Telephone Encounter - Maral Grant RN - 04/12/2023 12:37 PM EDT [place], Would you please clarify weather or not pt should be taking atorvastatin? It is on his med list buthe has not been taking for some time. Wanted to check with you before I had him restart it. Thank you, maral documented in this encounter Plan of Treatment Upcoming Encounters Date Type Specialty Care Team Description 04/17/2023 Office Visit Urology Kalpesh Funes MD [address] [place] [address] [place] [address] 05/02/2023 Telemedicine [facility] So Ivey CRNP [address] [place] [address] Jahaira Nava, [address] [place] [id number] 05/10/2023 Office Visit Cardiology Leah Aguilera CRNP [address] [place] [address] 05/23/2023 Home Visit [facility] Maral Grant RN [address] [place] [address] 07/06/2023 Home Visit [facility] Betina Jacob PA-C [address] [place] [address] 09/21/2023 Office Visit Nephrology Nataly Stone PA-C [address] [facility] [address] 11/03/2023 Nurse Only Ancillary Nurse Jeronimo Annual Wellness Niru [address] [place] [address] Scheduled Procedures Name Priority Associated Diagnoses Date/Ti [...] 023, 03/08/2019, 04/09/2014 CKD PHOS USE SMARTSET 94670 12/27/2023 12/26/2022, 0 06/21/2021 CKD HGB USE SMARTSET 15732 04/04/202404/04, 04/04/2023, 03/30/2023, Additional history exists COLONOSCOPY-EVERY 3 YRS AGES [...] this encounter Medical Devices Implanted Type Area Rn Building Device Identifier Shelf Expiration Date Model / Serial / Lot Lens Intraoc 22.5 - [id number] - [id number] Implanted:Qty: 1 on 05/22/2018 by Jasbir Maurer MD at OR [facility] Right: Eye [employer]OMB 11/22/2022 [id number] / [id number] / [id number] Lens Intraoc 21.0 - [id number] - [id number] Implanted:Qty: 1 on 06/05/2018 by Jasbir Maurer MD at OR [facility] Left: Eye [employer]CH [employer] LOMB 12/20/2022 [id number] / [id number] / documented as of this encounter Advance [...] Agents on File Name Relationship Healthcare Agent [facility] p Communication Ashley Jose Spouse Health Care Power of Attor mayela Care Teams Superintendent Relationship Specialty Start Date End Date Michael Hinton MD [address] [place] [address] PCP - General Family Medicine 08/07/17 documented as of this encounter
--- OUTSIDE RECORDS SUMMARY | 2023-10-07 03:14 | External Medical Summary | Summary of Care ---
Author Name Unknown Organization [facility] Address [address] [place] [address] Phone [phone] Care Team Providers Care Commercial Kitchen Service Technician Name Role Phone Michael Hinton MD Primary Care Provider [phone] [phone] Encounter Details Date Type Department Care Team Description 04/13/2023 Orders Only Laboratory, [facility] 132 [facility] [place] [address] Odessa Chun PA-Davey [address] [place], [place] [id number] Allergies Active Allergy Reactions Severity Noted Date Comments Fabiano Inhibitors Cough 06/09/2017 Carbidopa W-Levodopa 03/17/2021 Constipation Nsaids Rash 05/17/2018 Contraindicated per rubber ball finisher documented as of this encounter (statuses as of 04/13/2023) Medications Medication Sig Dispensed Refills Start Date End Date Status Glucose Blood (ONETOUCH VERIO) STRPIndications:Ty pe 2 diabetes mellitus with hemoglobin A1c goal of less than 8.0% ([facility]) Use up to 4 times a day E11.9 400 Strip 3 08/29/2018 Active ONETOUCH DELICA LANCETS 33G MISCIndications:Ty pe 2 diabetes mellitus with hemoglobin A1c goal of less than 8.0% ([facility]) Use up to 4 times a day [...] mitral valve regurgitation,Krista nary artery disease involving knik coronary artery of knik heart without angina pectoris,Paroxysma l atrial fibrillation [...] both knees Coronary artery disease invo lving knik coronary artery of knik heart without angina pectoris 03/21/2018 Last Assessment [...] scanned document from 11/13/[address] [place]ains [facility] [place]. 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 [...] mRNA, LNP-s, No Pre serve, 2-Dose Series ([employer]) 11/03/2021,12/19/2020,11/28/2020 Covid-19 Ad26, Single Dose (Soy/J&J) 12/19/2020,11/28/2020 [...] [address] [place] [address] 05/02/2023 Telemedicine [facility] So Ivey CRNP [address] [place] [address] Jahaira Nava, [address] [place] [address] 05/10/2023 Office Visit Cardiology Leah Aguilera CRNP [address] [place] [address] 05/23/2023 Home Visit [facility] Mayuri Grant RN [address] [place] [address] 07/06/2023 Home Visit [facility] Betina Jacob PA-C [address] [place] [address] 09/21/2023 Office Visit Nephrology Nataly Stone PA-C [address] [facility] [address] 11/03/2023 Nurse Only Ancillary Decker, Nurse Annual Wellness Niru [address] [place] [address] Scheduled Procedures Name Priority Associated Diagnoses Date/Ti [...] 023, 03/08/2019, 04/09/2014 CKD PHOS USE SMARTSET 42611 12/27/2023 12/26/2022, 0 06/21/2021 CKD HGB USE SMARTSET 39846 04/12/202404/12, 04/12/2023, 04/04/2023, Additional history exists COLONOSCOPY-EVERY [...] this encounter Medical Devices Implanted Type Area Biofuels Plant Construction Worker Device Identifier Shelf Expiration Date Model / Serial / Lot Lens Intraoc 22.5 - [id number] - [id number] Implanted:Qty: 1 on 05/22/2018 by Jasbir Maurer MD at OR [facility] Right: Eye [employer]OM[employer] 11/22/2022 [id number] / [id number] / [id number] Lens Intraoc 21.0 - [id number] - [id number] Implanted:Qty: 1 on 06/05/2018 by Jasbir Maurer MD at OR [facility] Left: Eye [employer]CH [employer] LOMB 12/20/2022 [id number] / [id number] / documented as of this encounter Advance [...] on File Name Relationship Healthcare [facility] Communication Ashley Jose Spouse Health Care Power of Attor mayela Care Teams Commercial Kitchen Service Technician Relationship Specialty Start Date End Date Michael Hinton MD [address] [place] [address] PCP - General Family Medicine 08/07/17 documented as of this encounter
--- OUTSIDE RECORDS SUMMARY | 2023-10-07 03:14 | External Medical Summary | Summary of Care ---
Author Name Unknown Organization [facility] Address [address] [place] [address] Phone [phone] Care Team Providers Care Medical Equipment Technician Name Role Phone Michael Hinton MD Primary Care Provider [phone] Encounter Details Date Type Department Care Team Description 04/13/2023 Orders Only Laboratory, [facility] 132 [facility] [place] [address] Odessa Chun PA-Davey [address] [place], [place] [phone] Allergies Active Allergy Reactions Severity Noted Date Comments Fabiano Inhibitors Cough 06/09/2017 Carbidopa W-Levodopa 03/17/2021 Constipation Nsaids Rash 05/17/2018 Contraindicated per union steward documented as of this encounter (statuses as of 04/13/2023) Medications Medication Sig Dispensed Refills Start Date End Date Status Glucose Blood (ONETOUCH VERIO) STRPIndications:Ty pe 2 diabetes mellitus with hemoglobin A1c goal of less than 8.0% ([facility]) Use up to 4 times a day E11.9 400 Strip 3 08/29/2018 Active ONETOUCH DELICA LANCETS 33G MISCIndications:Ty pe 2 diabetes mellitus with hemoglobin A1c goal of less than 8.0% ([facility]) Use up to 4 times a [...] mitral valve regurgitation,Krista nary artery disease involving [place] coronary artery of iroquois heart without angina pectoris,Paroxysma l atrial fibrillation [...] both knees Coronary artery disease invo lving [place]ro[place] coronary artery of iroqu[place] heart without angina pectoris 03/21/2018 Last Assessment [...] scanned document from 11/13/[address] bains [facility]. Coronary artery disease [...] mRNA, LNP-s, No Pre serve, 2-Dose Series (Get[employer]) 11/03/2021,12/19/2020,11/28/2020 Covid-19 Ad26, Single Dose (Soy/J&J) 12/19/2020,11/28/2020 [...] [address] [place] [address] 05/02/2023 Telemedicine [facility] So Ivey CRNP [address] [place] [address] Jahaira Nava, [address] [place] [address] 05/10/2023 Office Visit Cardiology Leah Aguilera CRNP [address] [place] [address] 05/23/2023 Home Visit [facility] Mayuri Grant RN [address] [place] [address] 07/06/2023 Home Visit [facility] Betina Jacob PA-C [address] [place] [address] 09/21/2023 Office Visit Nephrology Nataly Stone PA-C [address] [facility] [address] 11/03/2023 Nurse Only Ancillary Decker, Nurse Annual Wellness Niru [address] [place] [address] Scheduled Procedures Name Priority Associated Diagnoses Date/Ti [...] 023, 03/08/2019, 04/09/2014 CKD PHOS USE SMARTSET 79922 12/27/2023 12/26/2022, 0 06/21/2021 CKD HGB USE SMARTSET 75253 04/12/202404/12, 04/12/2023, 04/04/2023, Additional history exists COLONOSCOPY-EVERY [...] encounter Medical Devices Implanted Type Area Manager Inpatient Device Identifier Shelf Expiration Date Model / Serial / Lot Lens Intraoc 22.5 - [id number] - [id number] Implanted:Qty: 1 on 05/22/2018 by Jasbir Maurer MD at OR [facility] Right: Eye [employer]CH [employer] LOMB 11/22/2022 [id number] / [id number] / [id number] Lens Intraoc 21.0 - [id number] - [id number] Implanted:Qty: 1 on 06/05/2018 by Jasbir Maurer MD at OR [facility] Left: Eye BAUSCH [employer] LOMB 12/20/2022 [id number] / [id number] / documented as of this encounter Advance [...] Agents on File Name Relationship Healthcare Agent [facility] Communication Ashley Jose Spouse Health Care Power of Attor mayela Care Teams Medical Equipment Technician Relationship Specialty Start Date End Date Michael Hinton MD [address] [place] [address] PCP - General Family Medicine 08/07/17 documented as of this encounter
--- OUTSIDE RECORDS SUMMARY | 2023-10-07 03:14 | External Medical Summary | Summary of Care ---
Author Name Unknown Organization [facility] Address [address] [place] [address] Phone [phone] Care Team Providers Care Cigar Making Machine Operator Name Role Phone Michael Hinton MD Primary Care Provider +1 [phone] Encounter Details Date Type Department Care Team Description 04/12/2023 Orders Only [facility], [place] 132 [facility] [place] [address] Mayuri Grant, RN [address] [place] [address] Iron deficiency anemia, unspecified iron deficiency anemia type* Allergies Active Allergy Reactions Severity Noted Date Comments Fabiano Inhibitors Cough 06/09/2017 Carbidopa W-Levodopa 03/17/2021 Constipation Nsaids Rash 05/17/2018 Contraindicated per brazing machine operator helper documented as of this encounter (statuses [...] mitral valve regurgitation,Krista nary artery disease involving [place] coronary artery of [place] heart without angina pectoris,Paroxysma l atrial [...] both knees Coronary artery disease invo lving [place] coronary artery of [place] heart without angina pectoris 03/21/2018 Last [...] document from 11/13/[address] [place] [facility] [place] Coronary artery disease [...] [address] [place] [address] 05/02/2023 Telemedicine [facility] So Ivey CRNP [address] [place] [address] Jahaira Nava, [address] [place] [address] 05/10/2023 Office Visit Cardiology Leah Aguilera CRNP [address] [place] [address] 05/23/2023 Home Visit [facility] Mayuri Grant RN [address] [place] [address] 07/06/2023 Home Visit [facility] Betina Jacob PA-C [address] [place] [address] 09/21/2023 Office Visit Nephrology Nataly Stone [facility]-C [address] [facility] [address] 11/03/2023 Nurse Only Lily Decker, Nurse Annual [facility] Niru [address] [place] [address] Scheduled Orders Name Type Priority Associated Diagnoses Orde r Schedule CBC WITH WBC DIFFERENTIAL Lab Routine Iron deficiency anemia, unspecified iron deficiency anemia type Every Week for 999 Occurrences starting 04/12/2023 until 05/12/2024 FERRITIN Lab Routine Iron deficiency anemia, unspecified iron deficiency anemia type Every Week for 999 Occurrences starting 04/12/2023 until 05/12/2024 Scheduled Procedures Name Priority Associated Diagnoses Date/Ti [...] 023, 03/08/2019, 04/09/2014 CKD PHOS USE SMARTSET 80893 12/27/2023 12/26/2022, 0 06/21/2021 CKD HGB USE SMARTSET 67088 04/12/202404/12, 04/12/2023, 04/04/2023, Additional history exists COLONOSCOPY-EVERY [...] this encounter Medical Devices Implanted Type Area Mechanic Sound Technician Device Identifier Shelf Expiration Date Model / Serial / Lot Lens Intraoc 22.5 - [id number] - [id number] Implanted:Qty: 1 on 05/22/2018 by Jasbir Maurer MD at OR [facility] Right: Eye [employer] 11/22/2022 [id number] / [id number] / [id number] Lens Intraoc 21.0 - [id number] - [id number] Implanted:Qty: 1 on 06/05/2018 by Jasbir Maurer MD at OR [facility] Left: Eye [employer]OMB 12/20/2022 [id number] / [id number] / documented as of this encounter Visit Diagnoses Diagnosis Iron deficiency anemia, unspecified iron deficiency anemia type- Primary documented in this encounter Advance Directives [...] Care Power of Attor mayela Care Teams Cigar Making Machine Operator Relationship Specialty Start Date End Date Michael Hinton MD [address] [place] [address] PCP - General Family Medicine 08/07/17 documented as of this encounter
--- OUTSIDE RECORDS SUMMARY | 2023-10-07 03:14 | External Medical Summary | Summary of Care ---
Author Name Unknown Organization [facility] Address [address] [place] [address] Phone [phone] Care Team Providers Care Home Stager Name Role Phone Michael Hinton MD Primary Care Provider +1 [phone] Reason for Visit * Reason Comments Outpatient Testing Encounter Details Date Type Department Care Team Description 04/12/2023 Laboratory Laboratory, [facility] [address] [place] [address] [facility] [address] [place] [address] Anemia due to chronic blood loss; Type 2 diabetes mellitus with diabetic peripheral angiopathy without gangrene, without long-term current use of insulin ([facility]) Allergies Active Allergy Reactions Severity Noted Date Comments Fabiano Inhibitors Cough 06/09/2017 Carbidopa W-Levodopa 03/17/2021 Constipation Nsaids Rash 05/17/2018 Contraindicated per pot operator documented as of this encounter (statuses as of 04/12/2023) Medications Medication Sig Dispensed Refills Start Date End Date Status Glucose Blood (ONETOUCH VERIO) STRPIndications:Ty pe 2 diabetes mellitus with hemoglobin A1c goal of less than 8.0% ([facility]) Use up to 4 times a day [...] 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 ([facility]),Acute on chronic congestive heart failure, unspecified heart failure type ([facility]),Nonrheumatic mitral valve regurgitation,Krista nary artery disease involving [place] coronary artery of [place] heart without angina pectoris,Paroxysma l atrial fibrillation ([facility]),Stage 3b chronic kidney disease (HCC) Take 2 [...] both knees Coronary artery disease invo lving [place] coronary artery of [place] heart without angina pectoris 03/21/2018 Last [...] scanned document from 11/13/[address] bains, [facility] [place]. 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 [...] mRNA, LNP-s, No Pre serve, 2-Dose Series (NAVX) 11/03/2021,12/19/2020,11/28/2020 Covid-19 Ad26, Single Dose (Soy/J&J) 12/19/2020,11/28/2020 [...] [address] [place] [address] 05/02/2023 Telemedicine [facility] So Ivey CRNP [address] [place] [address] Jahaira Nava, [facility] [address] [place] [address] 05/10/2023 Office Visit Cardiology Leah Aguilera CRNP [address] [place] [address] 05/23/2023 Home Visit [facility] Mayuri Grant RN [address] [place] [address] 07/06/2023 Home Visit [facility] Betina Jacob PA-C [address] [place] [address] 09/21/2023 Office Visit Nephrology Nataly Stone PA-C [address] [place] [address] 11/03/2023 Nurse Only Ancillary Decker, Nurse Annual Well[facility] Niru [address] [place] [address] Pending Results Name Type Priority Associated Diagnoses Date /Time FERRITIN Lab Routine Anemia due to chronic blood loss 04/12/2023 1:00 PM EDT HEMOGLOBIN A1C Lab Routine Type 2 diabetes mellitus with diabetic peripheral angiopathy without gangrene, without long-term current use of insulin (HCC) 04/12/2023 1:00 PM EDT Scheduled Procedures Name Priority Associated Diagnoses Date/Ti [...] 023, 03/08/2019, 04/09/2014 CKD PHOS USE SMARTSET 79348 12/27/2023 12/26/2022, 0 06/21/2021 CKD HGB USE SMARTSET 59093 04/12/202404/12, 04/12/2023, 04/04/2023, Additional history exists COLONOSCOPY-EVERY [...] this encounter Medical Devices Implanted Type Area Auto Body Repairer Fiberglass Device Identifier Shelf Expiration Date Model / Serial / Lot Lens Intraoc 22.5 - [id number] - [id number] Implanted:Qty: 1 on 05/22/2018 by Jasbir Maurer MD at OR [facility] Right: Eye [employer] 11/22/2022 [id number] / [id number] / [id number] Lens Intraoc 21.0 - [id number] - [id number] Implanted:Qty: 1 on 06/05/2018 by Jasbir Maurer MD at OR [facility] Left: Eye [employer] 12/20/2022 [id number] / [id number] / documented as of this encounter Procedures Procedure Name Priority Date/Time Associated Diagnosis Comments DIFFERENTIAL, AUTOMATED Routine 04/12/2023 1:00 PM EDT Anemia due to chronic blood loss CBC WITH WBC DIFFERENTIAL Routine 04/12/2023 1:00 PM EDT Anemia due to chronic blood loss CBC Routine 04/12/2023 1:00 PM EDT Anemia due to chronic blood loss documented in this encounter Results * (ABNORMAL) DIFFERENTIAL, AUTOMATED (04/12/2023 1:00 PM EDT) WBC 4.41 4.00 - 10.80 K/uL 04/12/2023 1:41 PM EDT [facility] Neutrophils % 71.0 40.0 - 75.0 % 04/12/2023 1:41 PM EDT [facility] Lymphocytes % 18.4 18.0 - 42.0 % 04/12/2023 1:41 PM EDT [facility] Monocytes % 9.3 1.0 - 11.0 % 04/12/2023 1:41 PM EDT [facility] Eosinophils % 1.1 0.0 - 6.0 % 04/12/2023 1:41 PM EDT [facility] Basophils % 0.2 0.0 - 2.0 % 04/12/2023 1:41 PM EDT [facility] Absolute Neutrophils 3.13 1.80 - 7.70 K/uL 04/12/2023 1:41 PM EDT [facility] Absolute Lymphocytes 0.81(L) 1.00 - 4.80 K/ul 04/12/2023 1:41 PM EDT [facility] Absolute Monocytes 0.41 0.00 - 1.10 K/uL 04/12/2023 1:41 PM EDT [facility] Absolute Eosinophils 0.05 0.00 - 0.70 K/uL 04/12/2023 1:41 PM EDT [facility] Absolute Basophils 0.01 0.00 - 0.20 K/uL 04/12/2023 1:41 PM EDT [facility] Blood Venous blood specimen / Unknown Venipuncture / Unknown 04/12/2023 1:00 PM EDT 04/12/2023 1:37 PM EDT Odessa Chun PA-C LAB BLOOD ORDERABLES [facility] 132 [facility] [place] [address] * (ABNORMAL) CBC (04/12/2023 1:00 PM EDT) WBC 4.41 4.00 - 10.80 K/uL 04/12/2023 1:41 PM EDT [facility] RBC 3.26 4.50 - 5.25 M/uL 04/12/2023 1:41 PM EDT [facility] HGB 10.2(L) 14.0 - 16.8 g/dL 04/12/2023 1:41 PM EDT [facility] HCT 32.5(L) 40.0 - 48.4 % 04/12/2023 1:41 PM EDT [facility] MCV 99.7 82.0 - 99.5 fL 04/12/2023 1:41 PM EDT [facility] MCH 31.3 27.0 - 34.0 pg 04/12/2023 1:41 PM EDT [facility] MCHC 31.4 32.0 - 36.0 g/dL 04/12/2023 1:41 PM EDT [facility] RDW 14.4 11.5 - 15.5 % 04/12/2023 1:41 PM EDT [facility] PLT 155 140 - 400 K/uL 04/12/2023 1:41 PM EDT [facility] MPV 9.8 6.6 - 11.1 fL 04/12/2023 1:41 PM EDT [facility] Blood Venous blood specimen / Unknown Venipuncture / Unknown 04/12/2023 1:00 PM EDT 04/12/2023 1:37 PM EDT Odessa Chun PA-C LAB BLOOD ORDERABLES [facility] [address] [place] [address] documented in this encounter Visit Diagnoses Diagnosis 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
--- OUTSIDE RECORDS SUMMARY | 2023-10-07 03:15 | External Medical Summary | Summary of Care ---
Author Name Unknown Organization [facility] Address [address] [place] [facility] [place] [address] Phone [phone] Care Team Providers Care Tinning Machine Set Up Operator Name Role Phone Michael Hinton MD Primary Care Provider +1 -[phone] Reason for Visit * Reason Onset Date Comments [facility]: Maintenance 04/11/2023 a nemia Encounter Details Date Type Department Care Team Description 04/11/2023 Telephone [facility], [facility] 132 [employer] [facility] [place] [address] Mayuri Grant, RN [address] [employer] [facility] [place] [address] [facility]: Maintenance (anemia) Allergies Active Allergy Reactions Severity Noted Date Comments Fabiano Inhibitors Cough 06/09/2017 Carbidopa W-Levodopa 03/17/2021 Constipation Nsaids Rash 05/17/2018 Contraindicated per meteorological aide documented as of this encounter (statuses as of 04/11/2023) Medications Medication Sig Dispensed Refills Start Date [...] coughing spells 15 g 12 03/10/2023 Active valACYclovir HCl 1 GM Oral Tablet (Valtrex) Take 1 Tablet by mouth in the morning and 1 Tablet before bedtime. for cold sores. 2 Tablet 1 03/15/2023 Active buPROPion HCl ER (XL) 150 MG [...] mitral valve regurgitation,Krista nary artery disease involving [place] coronary artery of northway heart without angina pectoris,Paroxysma l atrial fibrillation [...] as of this encounter (statuses as of 04/11/2023) Active Problems Problem Noted Date Immunodeficiency 03/28/2023 [...] Last Assessment & Plan: Received blood transfusion 6/2 -will follow-up CBC on 03/30 -continue ferrous [...] both knees Coronary artery disease invo lving northway coronary artery of northway heart without angina pectoris 03/21/2018 Last Assessment [...] as of this encounter (statuses as of 04/11/2023) Resolved Problems Problem Noted Date Resolved Date [...] document from 11/13/[address] bains, [facility] [place]. [...] as of this encounter (statuses as of 04/11/2023) Immunizations Name Administration Dates Next Due COVID-19 mRNA, LNP-s, No Pre serve, 2-Dose Series (What's in My Handbag) 11/03/2021,12/19/2020,11/28/2020 Covid-19 Ad26, Single Dose (Soy/J&J) 12/19/2020,11/28/2020 [...] Miscellaneous Notes * Telephone Encounter - Mayuri Grant RN - 04/11/2023 9:51 AM EDT T/c to Carlyn Turner RN at [facility] Requested future orders for labs r/t anemia documented in this encounter Plan of Treatment Upcoming Encounters Date Type Specialty Care Team Description 04/12/2023 Home Visit [facility] Mayuri Grant RN [address] [place] [address] 04/17/2023 Office Visit Urology Kalpesh Funes MD [address] [address] [place] [address] 05/02/2023 Telemedicine [facility] So Ivey CRNP [address] [place] [address] Jahaira Nava, [facility] [address] [place] [address] 05/10/2023 Office Visit Cardiology Leah Aguilera CRNP [address] [place] [address] 07/06/2023 Home Visit [facility] Betina Jacob PA-C [address] [place] [address] 09/21/2023 Office Visit Nephrology Nataly Stone PA-C [address] [facility] [address] 11/03/2023 Nurse Only Ancillary Jeronimo Nurse Annual [facility] Niru [address] [place] [address] Scheduled Procedures Name Priority Associated Diagnoses Date/Ti [...] 023, 03/08/2019, 04/09/2014 CKD PHOS USE SMARTSET 02351 12/27/2023 12/26/2022, 0 06/21/2021 CKD HGB USE SMARTSET 80306 04/04/202404/04, 04/04/2023, 03/30/2023, Additional history exists COLONOSCOPY-EVERY [...] this encounter Medical Devices Implanted Type Area Net Maker Device Identifier Shelf Expiration Date Model / Serial / Lot Lens Intraoc 22.5 - [id number] - [id number] Implanted:Qty: 1 on 05/22/2018 by Jasbir Maurer MD at OR [facility] Right: Eye [employer] 11/22/2022 [id number] / [id number] / [id number] Lens Intraoc 21.0 - [id number] - [id number] Implanted:Qty: 1 on 06/05/2018 by Jasbir Maurer MD at OR [facility] Left: Eye [employer]OMB 12/20/2022 [id number] / [id number] / documented as of this encounter Advance [...] Care Power of Attor mayela Care Teams Tinning Machine Set Up Operator Relationship Specialty Start Date End Date Michael Hinton MD [address] [place] [address] PCP - General Family Medicine 08/07/17 documented as of this encounter
--- OUTSIDE RECORDS SUMMARY | 2023-10-07 03:15 | External Medical Summary | Summary of Care ---
Author Name Unknown Organization [facility] Address [address] [place] [address] Phone [phone] Care Team Providers Care Delivery Aide Name Role Phone Michael Hinton MD Primary Care Provider +1 -[phone] Reason for Visit * Reason Onset Date Comments [facility]: Maintenance 04/12/2023 Encounter Details Date Type Department Care Team Description 04/12/2023 Telephone [facility], [facility] [address] [email or web address] [facility] [place] [address] Maral Grant, RN [email or web address] [address] [facility]: Maintenance Allergies Active Allergy Reactions Severity Noted Date Comments Fabiano Inhibitors Cough 06/09/2017 Carbidopa W-Levodopa 03/17/2021 Constipation Nsaids Rash 05/17/2018 Contraindicated per eligibility and occupancy interviewer documented as of this encounter (statuses as of 04/12/2023) Medications Medication Sig Dispensed Refills Start Date End Date Status Glucose Blood (ONETOUCH VERIO) STRPIndications:Ty pe 2 diabetes mellitus with hemoglobin A1c goal of less than 8.0% ([facility]) Use up to 4 times a [...] mitral valve regurgitation,Krista nary artery disease involving [place] coronary artery of [place] heart without angina pectoris,Paroxysma l atrial fibrillation [...] both knees 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 [place]. Coronary artery disease due [...] mRNA, LNP-s, No Pre serve, 2-Dose Series ([employer]) 11/03/2021,12/19/2020,11/28/2020 Covid-19 Ad26, Single Dose (Soy/J&J) [...] [address] [place] [address] 05/02/2023 Telemedicine [facility] So Ivey CRNP 132 [place] [address] Jahaira Nava, [address] [place] [id number] 05/10/2023 Office Visit Cardiology Leah Aguilera CRNP [address] [place] [address] 05/23/2023 Home Visit [facility] Maral Grant RN [address] [place] [address] 07/06/2023 Home Visit [facility] Betina Jacob PA-C [address] [place] [address] 09/21/2023 Office Visit Nephrology Nataly Stone PA-C [address] [facility] [address] 11/03/2023 Nurse Only Ancillary Nurse Jeronimo Annual [facility] Niru [address] [place] [address] Scheduled Procedures Name Priority Associated Diagnoses Date/Ti [...] 023, 03/08/2019, 04/09/2014 CKD PHOS USE SMARTSET 01958 12/27/2023 12/26/2022, 0 06/21/2021 CKD HGB USE SMARTSET 30665 04/04/202404/04, 04/04/2023, 03/30/2023, Additional history exists COLONOSCOPY-EVERY [...] this encounter Medical Devices Implanted Type Area Racquet Maker Device Identifier Shelf Expiration Date Model / Serial / Lot Lens Intraoc 22.5 - [id number] - [id number] Implanted:Qty: 1 on 05/22/2018 by Jabsir Maurer MD at OR [facility] Right: Eye [employer]OMB 11/22/2022 [id number] / [id number] / [id number] Lens Intraoc 21.0 - [id number] - [id number] Implanted:Qty: 1 on 06/05/2018 by Jasbir Maurer MD at OR [facility] Left: Eye [employer]OMB 12/20/2022 [id number] / [id number] / documented as of this encounter Advance [...] Agents on File Name Relationship Healthcare Agent [facility] p Communication Ashley Jose Spouse Health Care Power of Attor mayela Care Teams Delivery Aide Relationship Specialty Start Date End Date Michael Hinton MD [address] [place] [address] PCP - General Family Medicine 08/07/17 documented as of this encounter
--- OUTSIDE RECORDS SUMMARY | 2023-10-07 03:15 | External Medical Summary ---
Author Name Unknown Address Unknown Organization K0G:[facility] 57[facility] - [address] [place] [address] Laboratory Report Ordering Provider Test Date Status GUERRERO CHAUHAN 04/12/2023 13:00:00 Final Observation Date Value Abnormality Reference (Units ) Status WBC, Total 04/12/2023 13:00:00 4.41 4.00-10.8 0 (K/uL) Final RBC 04/12/2023 13:00:00 3.26 4.50-5.25 (M/uL) Final Hemoglobin 04/12/2023 13:00:00 10.2 Below low normal 14 .0-16.8 (g/dL) Final HCT 04/12/2023 13:00:00 32.5 Below low normal 40. 0-48.4 (%) Final MCV 04/12/2023 13:00:00 99.7 82.0-99.5 (fL) Final MCH 04/12/2023 13:00:00 31.3 27.0-34.0 (pg) Final MCHC 04/12/2023 13:00:00 31.4 32.0-36.0 (g/dL) Final RDW 04/12/2023 13:00:00 14.4 11.5-15.5 (%) Final Platelets 04/12/2023 13:00:00 155 140-400 (K /uL) Final MPV 04/12/2023 13:00:00 9.8 6.6-11.1 ( fL) Final Performing Location [facility] 57-1 0 - [address] [place] [address]
--- OUTSIDE RECORDS SUMMARY | 2023-10-07 03:15 | External Medical Summary | Summary of Care ---
Author Name Unknown Organization [facility] Address [address] [place] [address] Phone [phone] Care Team Providers Care Joint Sealer Name Role Phone Michael Hinton MD Primary Care Provider +1 [phone] Reason for Visit * Reason Onset Date Comments Appointment 04/10/2023 Encounter Details Date Type Department Care Team Description 04/10/2023 Telephone [facility] [address] [place] [address] Services, Scheduling [address] [place] [address] Appointment (/) Allergies Active Allergy Reactions Severity Noted Date Comments Fabiano Inhibitors Cough 06/09/2017 Carbidopa W-Levodopa 03/17/2021 Constipation Nsaids Rash 05/17/2018 Contraindicated per guide domestic tour documented as of this encounter (statuses as of 04/10/2023) Medications Medication Sig Dispensed Refills Start Date [...] mitral valve regurgitation,Krista nary artery disease involving [place] coronary artery of [place] heart without angina pectoris,Paroxysma l atrial fibrillation [...] as of this encounter (statuses as of 04/10/2023) Active Problems Problem Noted Date Immunodeficiency 03/28/2023 [...] both knees Coronary artery disease invo lving [place] coronary artery of [place] heart without angina pectoris 03/21/2018 Last [...] as of this encounter (statuses as of 04/10/2023) Resolved Problems Problem Noted Date Resolved Date [...] scanned document from 11/13/[address] bains, [facility] [place]. Coronary artery [...] as of this encounter (statuses as of 04/10/2023) Immunizations Name Administration Dates Next Due COVID-19 [...] * Telephone Encounter - LARRY Randall - 04/10/2023 12:39 PM EDT Per Request to schedule 1 month telemed... Called lmom to confirm if 05/02 at 11:00/11:00am is a good date and time. documented in this encounter Plan of Treatment Upcoming Encounters Date Type Specialty Care Team Description 04/12/2023 Home Visit [facility] Mayuri Grant RN [address] [place] [address] 04/17/2023 Office Visit Urology Kalpesh Funes MD [address] [address] [place] [address] 05/02/2023 Telemedicine [facility] So Ivey CRNP [address] [place] [address] Jahaira Nava [facility] [address] [place] [address] [place] [address] 05/10/2023 Office Visit Cardiology Leah Aguilera CRNP [address] [place] [address] 07/06/2023 Home Visit [facility] Betina Jacob PA-C [address] [place] [place] [address] 09/21/2023 Office Visit Nephrology Nataly Stone [facility] [address] 11/03/2023 Nurse Only Ancillary Nurse Jeronimo [facility] Niru [address] [place] [address] Scheduled Procedures Name Priority Associated Diagnoses Date/Ti [...] 023, 03/08/2019, 04/09/2014 CKD PHOS USE SMARTSET 47064 12/27/2023 12/26/2022, 0 06/21/2021 CKD HGB USE SMARTSET 61137 04/04/202404/04, 04/04/2023, 03/30/2023, Additional history exists COLONOSCOPY-EVERY [...] this encounter Medical Devices Implanted Type Area [employer] Device Identifier Shelf Expiration Date Model / Serial / Lot Lens Intraoc 22.5 - [id number] - [id number] Implanted:Qty: 1 on 05/22/2018 by Jasbir Maurer MD at OR [facility] Right: Eye [employer] 11/22/2022 [id number] / [id number] / [id number] Lens Intraoc 21.0 - [id number] - [id number] Implanted:Qty: 1 on 06/05/2018 by Jasbir Maurer MD at OR [facility] Left: Eye [employer]CH [employer]OMB 12/20/2022 [id number] / [id number] / documented as of this encounter Advance [...] on File Name Relationship Healthcare Agent [facility] p Communication Ashley Jose Spouse Health Care Power of Attor mayela Care Teams Joint Sealer Relationship Specialty Start Date End Date Michael Hinton MD [address] [place] [address] PCP - General Family Medicine 08/07/17 documented as of this encounter
--- OUTSIDE RECORDS SUMMARY | 2023-10-07 03:15 | External Medical Summary ---
Author Name Unknown Address Unknown Organization [id number]:[facility] [place] [address] [place] [address] Laboratory Report Ordering Provider Test Date Status AVNI LUIS 04/12/2023 13:00:00 Final Observation Date Value Abnormality Reference (Units ) Status HbA1C 04/12/2023 13:00:00 6.1 Above high normal 4. 0-5.6 (%) Final The use of HbA1c to monitor glycemic status is based on normal hemoglobin and HbA composition. This test should not be used in patients with abnormal hemoglobin that affects the half life of the red blood cell or the in vivo glycation rates. Glucose, estimated average 04/12/2023 13:00:00 128 Above high normal <126 (mg/dL) Vinicio virk Performing Location [facility] [place] [address] [facility] [address]
--- OUTSIDE RECORDS SUMMARY | 2023-10-07 03:15 | External Medical Summary ---
Author Name Unknown Address Unknown Organization [id number]:[facility] [place] - [address] [place] [address] [place] [address] Laboratory Report Ordering Provider Test Date Status GUERRERO CHAUHAN 04/12/2023 13:00:00 Final Observation Date Value Abnormality Reference (Units ) Status Ferritin 04/12/2023 13:00:00 262 30-400 (ng /mL) Final Performing Location [facility] [place] - [address] [place] [address]
--- OUTSIDE RECORDS SUMMARY | 2023-10-07 03:15 | External Medical Summary ---
Author Name Unknown Address Unknown Organization [id number]:[facility] [place] [facility] - [address] [place] [address] Laboratory Report Ordering Provider Test Date Status GUERRERO CHAUHAN 04/12/2023 13:00:00 Final Observation Date Value Abnormality Reference (Units ) Status SYNC LEUKOCYTES IN BLOOD BY AUTOMATED COUNT 04/12/2023 13:00:00 4.41 4.00-10.80 (K/uL) Final Segs 04/12/2023 13:00:00 71.0 40.0-75.0 (%) Final Lymphs % 04/12/2023 13:00:00 18.4 18.0-42.0 (%) Final Monos 04/12/2023 13:00:00 9.3 1.0-11.0 (%) Final Eosinophils 04/12/2023 13:00:00 1.1 0.0-6.0 (%) Final Basos 04/12/2023 13:00:00 0.2 0.0-2.0 (%) Final Absolute Segs 04/12/2023 13:00:00 3.13 1.80-7.70 (K/uL) Final Lymphs, absolute 04/12/2023 13:00:00 0.81 Below low normal 1.00-4.80 (K/ul) Final Monos, Abs 04/12/2023 13:00:00 0.41 0.00-1.10 (K/uL) Final Eos, Abs 04/12/2023 13:00:00 0.05 0.00-0.70 (K/uL) Final Basos, Abs 04/12/2023 13:00:00 0.01 0.00-0.20 (K/uL) Final Performing Location [facility] [place] [facility] - [address] [place] [address]
--- OUTSIDE RECORDS SUMMARY | 2023-10-07 06:19 | External Medical Summary | Summary of Care ---
Author Name Unknown Organization [facility] Address [address] [place] [address] Phone [phone] Care Team Providers Care Bombsight Specialist Name Role Phone Michael Hinton MD Primary Care Provider [phone] Reason for Visit * Reason Onset Date Comments [facility]: Maintenance 10/06/2023 Encounter Details Date Type Department Care Team (Late st Contact Info) Description 10/06/2023 Telephone [facility], [facility] [address] [facility] [place] [address] [facility], Nurse [facility] [address] [facility] [place] [address] [facility]: Maintenance Allergies Active Allergy Reactions Criticality Noted Date Comments Fabiano Inhibitors Cough 06/09/2017 Carbidopa W-Levodopa 03/17/2021 Constipation Nsaids Rash 05/17/2018 Contraindicated per glass crusher documented as of this encounter (statuses as of 10/06/2023) Medications Medication Sig Dispensed Refills Start Date [...] mitral valve regurgitation,Krista nary artery disease involving [place] coronary artery of [place] heart without angina pectoris,Paroxysma l atrial fibrillation [...] as of this encounter (statuses as of 10/06/2023) Active Problems Problem Noted Date Diagnosed Date [...] Last Assessment & Plan: Followed closely by [facility] hematology. No identified cause of [...] knees 03/21/2018 Coronary artery disease invo lving [place] coronary artery of [place] heart without angina pectoris 03/21/2018 Last Assessment [...] as of this encounter (statuses as of 10/06/2023) Resolved Problems Problem Noted Date Diagnosed Date [...] as of this encounter (statuses as of 10/06/2023) Immunizations Name Administration Dates Next Due COVID-19 [...] 15,07/14/2014,07/06/2013,07/13/2012,0 07/15/2011,07/27/2010,07/02/2009,09/03,08/28/2007,08/28/2006, 5 Seasonal Influenza, PF, 6 M & above, IM , (FluLaval or Fluzone) 07/31/2019,07/04/2018,07/26/2017 Seasonal Influenza, QUAD, wi th Preserv, [...] Telephone Encounter - Karina Wynn LPN - 10/06/2023 1:52 PM EST Images from the original note were not included. Call to pt's states no active bleeding States pt's stool is dark but not black Reports pt is tired, pale, no energy, SOB with ambulation Pt only wears O2 at night, SPO2 95% on RA Denies any pain Pt's does not want to got to the ED report the wait is to long Consulted with Mercedes Jain and decision made to call pt's Hem/ Onc doctor at [facility], Dr Kishor Manuel at [phone] Spoke with nurse Og relayed pt's HBG and above information Og was able to pull [employer]er labs and has lab results to show doctor Per Og pt has to go to ED as it is to late in the day to set up infusion and they are closed tomorrow Stated pt can not wait until appt Wed to see Dr Manuel I made Og aware I will call pt's and explain she stated she would also call pt and his wifeand explain need for ED for transfusion Call to pt's Ashley made aware I spoke with Dr Manuel's office and they advised pt should go to ED at [facility] for infusion. Made aware she will be getting a call from Dr Manuel's office about same F/u call scheduled for tomorrow documented in this encounter Plan of Treatment Upcoming Encounters Date Type Department Care Team (Late st Contact Info) Description 10/07/2023 8:30 AM EST Scheduled Telephone [facility], [facility] [address] [place] [address] [facility], Nurse [facility] [address] [place] [address] 10/09/2023 9:30 AM EST Scheduled Telephone [facility], [facility] [address] [facility] [facility] [place], [place] [address] [facility] Nurse Triage [address] [facility] [place] [address] 10/10/2023 11:00 AM EST Scheduled Telephone [facility], [facility] [address] [facility] [place] [address] [facility] Nurse Triage [address] [facility] [place], [place] [address] 10/12/2023 8:00 AM EST Laboratory [facility] [address] [place] [address] [facility] Draw [address] [place] [address] 10/19/2023 8:00 AM EST Laboratory [facility] [address] [place] [address] [facility] Draw [address] [place] [address] 11/03/2023 2:00 PM EST Nurse Only Ancillary Bernadette [facility] [address] [facility] [place] [address] [place], Nurse [facility] [address] [facility] [place] [address] 11/06/2023 12:30 PM EST Home Visit [facility], [facility] [address] [place] [address] Peggy De, RN [address] [place] [address] 11/14/2023 1:30 PM EST Office Visit Nephrology, [facility] [address] [facility] [place] [address] ZeNataly bailey PA-C [address] [facility] [place] [address] 03/11/2024 3:15 PM EDT Office Visit Urology, [facility] [address] [place] [address] Kalpesh Funes MD [address] [place] [address] Scheduled Procedures Name Priority Associated Diagnoses Date/Ti [...] 023, 03/08/2019, 04/09/2014 CKD PHOS USE SMARTSET 89294 12/27/2023 12/26/2022, 0 06/21/2021 CKD HGB USE SMARTSET 70045 10/05/202410/05, 10/05/2023, 09/28/2023, Additional history exists COLONOSCOPY-EVERY 3 YRS AGES [...] this encounter Medical Devices Implanted Type Area Unit Receptionist Device Identifier Shelf Expiration Date Model / Serial / Lot Lens Intraoc 22.5 - [id number] - [id number] Implanted:Qty: 1 on 05/22/2018 by Jasbir Maurer MD at OR [facility] Right: Eye [employer] 11/22/2022 [id number] / [id number] / [id number] Lens Intraoc 21.0 - [id number] - [id number] Implanted:Qty: 1 on 06/05/2018 by Jasbir Maurer MD at OR [facility] Left: Eye [employer] 12/20/2022 [id number] / [id number] / documented as of this encounter Advance [...] Care Power of Attor mayela Care Teams Bombsight Specialist Relationship Specialty Start Date End Date Michael Hinton MD [address] [place] [address] PCP - General Family Medicine 08/07/17 documented as of this encounter
[2023-10-07 06:45] LABS: Albumin Globulin Ratio 2.1 (0.9-2); Albumin Level 3.7 gm/dl (3.4-5.0); BUN Creatinine Ratio 14.9 (10-20); Bilirubin,Total 0.9 mg/dl (0.2-1.0); Calcium 8.8 mg/dl (8.6-10.3); Creatinine Clr Calc Pharmacy 27.2 ml/min; Est GFR (African American) 35.5 ml/min; Est GFR (Non-African American) 30.6 ml/min; Globulin 1.8 gm/dl (2.5-4.0); Potassium 3.4 mmol/L (3.5-5.1); Total Protein 5.5 gm/dl (6.0-8.3)
[2023-10-07 07:15] LABS: Basophils # (auto) 0.02 K/uL (0.00-0.20); Basophils % (auto) 0.6 %; Eosinophils # (auto) 0.03 K/uL (0.00-0.50); Eosinophils % (auto) 0.9 %; Hematocrit (blood only) 26.6 % (42.0-52.0); Immature Granulocytes # (auto) 0.03 K/uL (0.01-0.20); Immature Granulocytes % (auto) 0.9 %; Lymphocytes # (auto) 0.75 K/uL (1.20-3.40); Lymphocytes % (auto) 22.2 %; Mean Corpuscular Hemoglobin 30.3 pg (25.0-34.0); Mean Corpuscular Hgb Conc 33.8 g/dL (32.0-36.0); Mean Corpuscular Volume 89.6 fL (80.0-100.0); Mean Platelet Volume 9.4 fL (9.4-12.4); Monocytes # (auto) 0.44 K/uL (0.11-0.59); Neutrophils # (auto) 2.11 K/uL (1.40-6.50); Neutrophils % (auto) 62.4 %; Platelet Count 144 K/uL (130-400); RDW Coefficient of Variation 14.2 % (11.5-14.5); RDW Standard Deviation 46.5 fL (36.4-46.3); Red Blood Count 2.97 M/uL (4.70-6.10); White Blood Count 3.38 K/ul (4.8-10.8)
[2023-10-07 07:19] LABS: Estimated Average Glucose 108 mg/dl; Hemoglobin A1C 5.4 % (4.5-5.6)
--- NOTE | 2023-10-07 08:19 | Electrocardiogram Report ---
Test Reason : Blood Pressure : / mmHG Vent. Rate : 094 BPM Atrial Rate : 088 BPM P-R Int : 156 ms QRS Dur : 090 ms QT Int : 382 ms P-R-T Axes : 000 -43 -04 degrees QTc Int : 477 ms Sinus rhythm with Premature atrial complexes Left axis deviation Cannot rule out Anterior infarct , age undetermined Abnormal ECG When compared with ECG of 24-JAN-2023 16:44, Premature atrial complexes are now Present T wave inversion more evident in Anterior leads Confirmed by Nitin Gracia ([id number]) on 10/07/2023 8:19:01 AM Referred By: Confirmed By:Nitin Gracia
[2023-10-07] MEDS: DONEPEZIL HCL 10 MG TAB PO SCH (09:09)
[2023-10-07] MEDS: AMANTADINE HCL 100 MG CAPSULE PO SCH (09:10)
[2023-10-07] MEDS: FINASTERIDE 5 MG TAB PO SCH (09:10)
[2023-10-07] MEDS: CYANOCOBALAMIN (B-12) 500 MCG TABLET PO SCH (09:10)
[2023-10-07] MEDS: FERROUS SULFATE 325 MG TAB PO SCH (09:11)
[2023-10-07] MEDS: ESCITALOPRAM OXALATE 20 MG TAB PO SCH (09:11)
[2023-10-07] MEDS: buPROPion XL 150 MG TABCR PO SCH (09:11)
[2023-10-07] MEDS: cephALEXin 500 MG CAP PO SCH (09:11)
[2023-10-07] MEDS: METOPROLOL SUCC 25MG EXT REL TAB PO SCH (09:11)
--- NOTE | 2023-10-07 09:13 | Gastrointestinal Consultation ---
Date of Consultation October 07, 2023 Assessment & Plan (1) Symptomatic anemia: He has anemia with a negative workup in the past. I don't think he is having melena, I think the dark stools are related to the oral iron he takes as his stools are the same consistency and frequency they always are. Heme (+) stools do not indicate GI bleeding and are used as screening tests for colon cancer. I don't know that repeat workup is needed at this time, will let the [facility] team decide that. He does not recall having had a capsule endoscopy. If not then he needs one and it can be done as an outpatient. If he has had one then repeat evaluation may be warranted. I do not plan emergent endoscopy unless he manifests with acute bleeding episode History of Present Illness Reason for Consultation: anemia Attending Physician: Seven Amador MD History of Present Illness 78 year old man with anemia admitted with hemoglobin of 6.p. There is mention of melena but patient just says his stools were normal consistency and frequency just "darker" but not black. Of note he does take oral iron. Had significant anemia last year around this time and had EGD and colonoscopy, both of which were unremarkable. Has not had further workup and has been managed by hematology with IV iron infusions. Patient denies any complaints with regards to his GI tract. Stools were noted to be "hemoccult positive" in ED. Allergies Allergy/AdvReac Type Severity Reaction Status Date / Time NSAIDS (Non-Steroidal Allergy Intermediate Rash Verified 10/06/23 17:18 Anti-Inflamma YONATAN Inhibitors AdvReac Intermediate Cough Verified 10/06/23 17:18 carbidopa AdvReac Intermediate constipatio Verified 10/06/23 17:18 n levodopa AdvReac Intermediate constipatio Verified 10/06/23 17:18 n Home Medications Medication Instructions Recorded Confirmed Type amantadine HCl 100 mg capsule 100 mg PO QAM 05/22/20 10/06/23 History bupropion HCl 150 mg 24 hr tablet, 150 mg PO QAM 06/17/21 10/06/23 History extended release (Wellbutrin XL) fluocinonide 0.05 % topical 1 applic topical DAILY PRN after 06/17/21 10/06/23 History solution bathing metformin 500 mg tablet,extended 500 mg PO QAM 06/17/21 10/06/23 History release 24 hr albuterol sulfate 90 mcg/actuation 2 puff inhalation QID PRN 09/08/22 10/06/23 History aerosol inhaler Shortness Of Breath Or Wheezing betamethasone dipropionate 0.05 % 1 applic topical BID PRN Skin 09/08/22 10/06/23 History topical cream Irritation ferrous sulfate 325 mg (65 mg 325 mg PO QAM 09/08/22 10/06/23 History iron) tablet (FeroSul) torsemide 20 mg tablet 20 mg PO QAM 11/28/22 10/06/23 History escitalopram oxalate 20 mg tablet 20 mg PO QAM #90 tabs 01/23/23 10/06/23 Rx cyanocobalamin (vitamin B-12) 2,000 mcg PO QAM 01/24/23 10/06/23 History 1,000 mcg tablet (Vitamin B-12) dutasteride 0.5 mg capsule 0.5 mg PO QAM 01/24/23 10/06/23 History pantoprazole 40 mg tablet,delayed 40 mg PO QAM 01/24/23 10/06/23 History release metoprolol succinate 25 mg 25 mg PO QAM #90 tabs 03/21/23 10/06/23 Rx tablet,extended release 24 hr cephalexin 500 mg capsule 500 mg PO DAILY 10/06/23 10/06/23 History donepezil 10 mg tablet 10 mg PO DAILY 10/06/23 10/06/23 History Patient History Medical History Atrial fibrillation f/u Dr. Benz Thompson [place] on hold due to anemia History of blood transfusion 03/24/23, "he's bleeding somewhere, has a low blood count, not sure where losing it from"; f/[facility] 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 History of pneumonia end of 01/2023, found in lt. 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 Surgical History History of carpal tunnel release of both wrists History of esophagogastroduodenoscopy (EGD) Hx of colonoscopy Hx of bilateral cataract extraction History of neck surgery [facility] w/Dr. Pacheco; ROM-"can't turn it very far side to side nor move it up or down very far" S/P wrist surgery S/P CABG (coronary artery bypass graft) (2011) CHILDS, "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 S/P triple vessel bypass (2011[place] [facility] [place]; f/u Dr. Benz [facility] History of right hip replacement H/O foot surgery reconstructive sx on rt. foot H/O eye surgery numerous when he was young Family History Unknown No problems noted. Father Hypertension, Onset Age: 40 at 40 Mother Hypertension COPD (chronic obstructive pulmonary disease) Diabetes Brother Allergies Asthma Denies family history of Prostate cancer Hearing loss No family history of adverse response to anesthesia No family history of bleeding disorder Heart disease Cancer Stroke Social History Smoking Status: Never smoker Cigarettes Per Day: smokes a cigar occasionally; Second Hand Exposure: No; Do You Dip or Chew Tobacco: No; Hx Alcohol Use: No Hx Substance Use: No Preferred Language: Citizen Of [place] Communication Ability: Effective Communication Ability Comment: Hard of hearing Sales Officer Required: No Beliefs That Will Affect Care: None marital status: Current Living Situation: Spouse Current Living Situation Comment: Lives at home with spouse Other Information That Helps Us Care for You: No Feels Safe at Home: Yes Safety Concerns: Feels Safe At This Time Assistive Devices: Oxygen - at Night Review of Systems Review of Systems: All systems reviewed & are unremarkable except as noted in HPI & below Physical Exam Constitutional: WD/WN, vitals as above Neck: trachea midline, no thyromegaly Respiratory: normal respiratory effort, lungs clear to auscultation Cardiovascular: RRR, no murmur, no edema Gastrointestinal (Abdomen): normal bowel sounds, soft, nontender, no hepatosplenomegaly Musculoskeletal: Extremities: extremities normal to inspection Results & Data Vital Signs (Past 12 Hours) Vital Signs Temp Pulse Pulse Resp BP BP Pulse Ox 10/07/23 08:11 36.8 C 68 16 148/74 H 100 10/07/23 07:13 71 10/07/23 07:12 71 10/07/23 04:15 36.8 C 68 20 143/63 H 100 10/07/23 03:41 36.5 C 66 16 151/77 H 100 10/07/23 02:40 36.5 C 66 16 152/83 H 100 10/07/23 01:40 36.7 C 75 16 160/73 H 97 10/07/23 01:10 36.6 C 76 16 162/83 H 93 10/07/23 00:52 36.9 C 75 16 157/78 H 10/07/23 00:38 36.8 C 69 16 157/64 H 95 10/06/23 23:51 10/06/23 23:51 36.5 C 94 H 16 153/97 H 96 10/06/23 23:00 79 22 10/06/23 22:30 98 H 17 92 10/06/23 22:08 10/06/23 22:00 77 23 131/73 97 Pulse Ox O2 Del Method O2 Del Method O2 Flow Rate 10/07/23 08:11 Nasal Cannula 3 10/07/23 07:13 10/07/23 07:12 10/07/23 04:15 Nasal Cannula 2 10/07/23 03:41 2 10/07/23 02:40 2 10/07/23 01:40 10/07/23 01:10 10/07/23 00:52 10/07/23 00:38 10/06/23 23:51 Room Air 10/06/23 23:51 Room Air 10/06/23 23:00 10/06/23 22:30 10/06/23 22:08 96 Room Air 10/06/23 22:00 Laboratory Results 10/07/23 10/07/23 10/06/23 Range/Units 05:39 05:37 23:54 WBC 3.38 L (4.8-10.8) K/ul RBC 2.97 L (4.70-6.10) M/uL Hgb 9.0 L (14.0-18.0) g/dl Hct 26.6 L (42.0-52.0) % MCV 89.6 D (80.0-100.0) fL MCH 30.3 (25.0-34.0) pg MCHC 33.8 (32.0-36.0) g/dL RDW Std Deviation 46.5 H (36.4-46.3) fL RDW Coeff of Anny 14.2 (11.5-14.5) % Plt Count 144 (130-400) K/uL MPV 9.4 (9.4-12.4) fL Immature Gran % (Auto) 0.9 % Neut % (Auto) 62.4 % Lymph % (Auto) 22.2 % [place] % (Auto) 13.0 % Eos % (Auto) 0.9 % Baso % (Auto) 0.6 % Neut # (Auto) 2.11 (1.40-6.50) K/uL Lymph # (Auto) 0.75 L (1.20-3.40) K/uL [place] # (Auto) 0.44 (0.11-0.59) K/uL Eos # (Auto) 0.03 (0.00-0.50) K/uL Baso # (Auto) 0.02 (0.00-0.20) K/uL Immature Gran # (Auto) 0.03 (0.01-0.20) K/uL Absolute Nucleated RBC (0.00-0.12) K/uL Nucleated RBC % (auto) % Hypochromasia Microcytosis Sodium 143 (136-145) mmol/L Potassium 3.4 L (3.5-5.1) mmol/L Chloride 104 (98-107) mmol/L Carbon Dioxide 31 (21-32) mmol/L Anion Gap 8 (3-11) BUN 30 H (6-23) mg/dl Creatinine 2.01 H (0.6-1.4) mg/dl Est Cr Clr Drug Dosing 27.2 Est GFR ( Amer) 35.5 ml/min Est GFR (Non-Af Amer) 30.6 ml/min BUN/Creatinine Ratio 14.9 (10-20) Glucose 116 H (70-99(Fasting)) mg/dl POC Glucose 120 H 199 H (70-99) mg/dl Estimat Average Glucose 108 mg/dl Hemoglobin A1c 5.4 (4.5-5.6) % Calcium 8.8 (8.6-10.3) mg/dl Total Bilirubin 0.9 (0.2-1.0) mg/dl AST 14 (13-39) U/L ALT 9 (7-52) U/L Alkaline Phosphatase 91 (34-104) U/L Troponin I High Sens (0-20) pg/ml Total Protein 5.5 L (6.0-8.3) gm/dl Albumin 3.7 (3.4-5.0) gm/dl Globulin 1.8 L (2.5-4.0) gm/dl Albumin/Globulin Ratio 2.1 H (0.9-2) Lipase 110 H (11-82) U/L Blood Type Antibody Screen Crossmatch 10/06/23 10/06/23 Range/Units 16:10 16:09 WBC 4.03 L (4.8-10.8) K/ul RBC 2.27 L (4.70-6.10) M/uL Hgb 6.9 L* (14.0-18.0) g/dl Hct 21.6 L (42.0-52.0) % MCV 95.2 (80.0-100.0) fL MCH 30.4 (25.0-34.0) pg MCHC 31.9 L (32.0-36.0) g/dL RDW Std Deviation 45.7 (36.4-46.3) fL RDW Coeff of Anny 13.2 (11.5-14.5) % Plt Count 168 (130-400) K/uL MPV 9.6 (9.4-12.4) fL Immature Gran % (Auto) 0.5 % Neut % (Auto) 67.0 % Lymph % (Auto) 20.1 % [place] % (Auto) 11.7 % Eos % (Auto) 0.5 % Baso % (Auto) 0.2 % Neut # (Auto) 2.70 (1.40-6.50) K/uL Lymph # (Auto) 0.81 L (1.20-3.40) K/uL [place] # (Auto) 0.47 (0.11-0.59) K/uL Eos # (Auto) 0.02 (0.00-0.50) K/uL Baso # (Auto) 0.01 (0.00-0.20) K/uL Immature Gran # (Auto) 0.02 (0.01-0.20) K/uL Absolute Nucleated RBC 0.02 (0.00-0.12) K/uL Nucleated RBC % (auto) 0.5 % Hypochromasia Present Microcytosis Present Sodium 143 (136-145) mmol/L Potassium 4.0 (3.5-5.1) mmol/L Chloride 103 (98-107) mmol/L Carbon Dioxide 30 (21-32) mmol/L Anion Gap 10 (3-11) BUN 35 H (6-23) mg/dl Creatinine 2.12 H (0.6-1.4) mg/dl Est Cr Clr Drug Dosing Not Reportable Est GFR ( Amer) 33.3 ml/min Est GFR (Non-Af Amer) 28.7 ml/min BUN/Creatinine Ratio 16.5 (10-20) Glucose 121 H (70-99(Fasting)) mg/dl POC Glucose (70-99) mg/dl Estimat Average Glucose mg/dl Hemoglobin A1c (4.5-5.6) % Calcium 9.7 (8.6-10.3) mg/dl Total Bilirubin 0.5 (0.2-1.0) mg/dl AST 14 (13-39) U/L ALT 10 (7-52) U/L Alkaline Phosphatase 103 (34-104) U/L Troponin I High Sens 9.5 (0-20) pg/ml Total Protein 6.2 (6.0-8.3) gm/dl Albumin 4.1 (3.4-5.0) gm/dl Globulin 2.1 L (2.5-4.0) gm/dl Albumin/Globulin Ratio 2.0 (0.9-2) Lipase 200 H (11-82) U/L Blood Type A Positive Antibody Screen NEGATIVE Crossmatch See Detail Diagnostic Findings Chest X-Ray 10/06/23 15:52 SINGLE VIEW CHEST CLINICAL HISTORY: Atypical chest pain. FINDINGS: An AP, portable, upright chest radiograph is compared to study dated 01/24/2023 and correlated with chest CT dated 07/05/2022. The examination is degraded by portable technique and apical lordotic positioning. The patient is status post midline sternotomy. The heart is enlarged with atherosclerotic calcification of the thoracic aorta. The pulmonary vasculature is noncongested. Chronic interstitial thickening is similar to previous. There is mild bibasilar scarring/atelectasis. The lungs and pleural spaces are otherwise clear. No pneumothorax is seen. The skeletal structures are osteopenic. There are chronic/healed left-sided rib fractures. Degenerative change is noted in the shoulders and spine. Fusion hardware is noted in the cervical spine. IMPRESSION: Cardiomegaly with no active disease in the chest. ACT 112: Negative or not required by law. Electronically signed by: Gonzales Alvarado M.D. 10/06/2023 5:14 PM Abdomen/Pelvis CT 10/06/23 18:47 Exam(s): CT ABDOMEN + PELVIS Without Contrast EXAM: CT Abdomen and Pelvis Without Intravenous Contrast CLINICAL HISTORY: Reason for exam: r/o pancreatitis, melena. TECHNIQUE: Axial computed tomography images of the abdomen and pelvis without intravenous contrast. CTDI is 19.36 mGy and DLP is 954.43 mGy-cm. Automated exposure control was utilized for the study. A dose lowering technique was utilized adhering to the principles of ALARA. COMPARISON: CT abdomen pelvis September 08, 2022. FINDINGS: Lung bases: Unremarkable. No mass. No consolidation. Heart: Cardiomegaly. ABDOMEN: Liver: Unremarkable. Gallbladder and bile ducts: Unremarkable. No calcified stones. No ductal dilation. Pancreas: Unremarkable. No ductal dilation. Spleen: Unremarkable. No splenomegaly. Adrenals: Unremarkable. No mass. Kidneys and ureters: Unremarkable. No hydronephrosis or nephrolithiasis. Stomach and bowel: Diverticulosis, without acute diverticulitis. No small bowel obstruction. No free air. PELVIS: Appendix: No findings to suggest acute appendicitis. Bladder: Wall thickening of the urinary bladder, likely from bladder outlet obstruction. No stones. Reproductive: Enlarged prostate gland measures 6.3 cm. ABDOMEN and PELVIS: Intraperitoneal space: See above. Bones/joints: Sternotomy wires. Degenerative changes of the spine. RIGHT hip arthroplasty. No acute fracture. No dislocation. Soft tissues: Unremarkable. Vasculature: Atherosclerotic changes of the aorta. No abdominal aortic aneurysm. Lymph nodes: Unremarkable. No enlarged lymph nodes. IMPRESSION: 1. No hydronephrosis or nephrolithiasis. 2. Enlarged prostate gland measures 6.3 cm. 3. Wall thickening of the urinary bladder, likely from bladder outlet obstruction. 4. Diverticulosis, without acute diverticulitis. No small bowel obstruction. No free air. 5. No pancreatitis. Electronically signed by: Cam Felton MD 10/06/23 20:27 PM
[2023-10-07] MEDS ORDERED: SODIUM CHLORIDE 0.9% 500 ML IV ONE (09:16)
[2023-10-07] MEDS: POTASSIUM CHLORIDE / WTR 10 MEQ/100 ML PLCT IV SCH ×2 (11:38→12:45)
[2023-10-07] MEDS ORDERED: Nursing to Pharmacy Communication SCH (16:00)
--- NOTE | 2023-10-07 16:12 | Hospitalist Progress Note ---
Date of Service October 07, 2023 Assessment & Plan (1) Acute on chronic anemia: (2) Melena: Plan: Patient is 78 y/o M with PMH CAD s/p CABG, chronic diastolic heart failure, paroxysmal atrial fibrillation not anticoagulated secondary to anemia, CKD III, DM II, Parkinson's, BPH, GERD, chronic anemia presented to ER with complaint of melena and anemia on recent labs. c/o exertional shortness of breath. HGB has been downtrending from Hgb:11 over the past couple of months to 6.5 on 10/05/23. Patient follows with hematology, Dr. Smith. Receives IV iron monthly, last was 09/14. Melena Likely chronic blood loss anemia Likely due to diverticular/polyp, internal hemorrhoids bleed --H/O Colonoscopy 08/2022: Sigmoid diverticula, 4 mm polyp sigmoid colon, internal hemorrhoids --H/O EGD 08/2022: Normal esophagus, stomach and duodenum --CT ABD:No hydronephrosis or nephrolithiasis. Enlarged prostate gland measures 6.3 cm. Wall thickening of the urinary bladder, likely from bladder outlet obstruction. Diverticulosis, without acute diverticulitis. No small bowel obstruction. No free air. No pancreatitis. Reported heme positive stool in ER Not on anticoagulation S/P 2 units PRBC Monitor H&H and transfuse as needed Manage check iron levels and transfuse iron if needed Full liquid diet for now GI consulted Follows with hematology as outpatient for Iron transfusions Hypokalemia Replete electrolytes as needed Monitor (3) Elevated lipase: Plan: Patient without abdominal pain, nausea, vomiting or diarrhea CT abdomen showed no signs of pancreatitis Lipase levels improved (4) Coronary artery disease: Plan: S/P CABG Denies chest pain Not on aspirin currently per hematology secondary to anemia Continue metoprolol succinate (5) CHF (congestive heart failure): Plan: Moderate mitral regurgitation, EF: 60-65% per echo in 04/2022 Chronic BLE edema CXR without significant overload noted Resume torsemide as able (6) Paroxysmal A-fib: Plan: Not on anticoagulation secondary to anemia Continue metoprolol succinate (7) CKD (chronic kidney disease) stage 3, GFR 30-59 ml/min: Plan: Cr: 2.1. 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: Plan: Continue donepezil, amantadine (11) BPH (benign prostatic hyperplasia): Plan: Continue dutasteride Bladder scan as needed to monitor for any retention (12) GERD (gastroesophageal reflux disease): Plan: Continue IV Protonix DVT Px SCDs Re: Melena, Anemia Code Status Full Code Admission and Anticipated Discharge Date Admission Date: October 06, 2023 Subjective Patient is seen and examined at bedside States having dark green-colored stools this morning Dyspnea on exertion better at rest Denies any nausea, vomiting, abdominal pain, chest pain Discussed with patient's family at bedside No other complaints Review of Systems Review of Systems: All systems reviewed & are unremarkable except as noted in Subjective Physical Exam Physical Exam: Physical Exam: Vitals signs as noted above General Appearance:Moderately built and nourished, no apparent distress Head: normocephalic, Atraumatic Eyes: normal inspection, EOMI Neck: supple, Trachea midline Respiratory/Chest: Normal breath sounds, CTA, No accessory muscle use Cardiovascular: S1, S2, + murmur Abdomen/GI:Soft, Non tender, Bowel sounds present Extremities/Musculoskeletal:normal inspection, chronic venous stasis changes, + edema Neurologic/Psych:AAOX3, grossly no focal neurological deficits, + hearing impairment Skin: normal color, warm Results & Data Results & Data Vital Signs (Past 12 Hours) Vital Signs Temp Pulse Pulse Resp BP Pulse Ox O2 Del Method 10/07/23 11:38 36.6 C 70 16 150/79 H 96 Room Air 10/07/23 08:11 36.8 C 68 16 148/74 H 100 Nasal Cannula 10/07/23 07:13 71 10/07/23 07:12 71 10/07/23 04:15 36.8 C 68 20 143/63 H 100 Nasal Cannula O2 Flow Rate 10/07/23 11:38 10/07/23 08:11 3 10/07/23 07:13 10/07/23 07:12 10/07/23 04:15 2 Laboratory Results Short CBC 10/06/23 10/07/23 Range/Units 16:09 05:37 WBC 4.03 L 3.38 L (4.8-10.8) K/ul Hgb 6.9 L* 9.0 L (14.0-18.0) g/dl Hct 21.6 L 26.6 L (42.0-52.0) % Plt Count 168 144 (130-400) K/uL BMP 10/06/23 10/07/23 16:09 05:37 Sodium 143 143 Potassium 4.0 3.4 L Chloride 103 104 Carbon Dioxide 30 31 BUN 35 H 30 H Creatinine 2.12 H 2.01 H Glucose 121 H 116 H Calcium 9.7 8.8 Liver Function 10/06/23 10/07/23 Range/Units 16:09 05:37 Total Bilirubin 0.5 0.9 (0.2-1.0) mg/dl AST 14 14 (13-39) U/L ALT 10 9 (7-52) U/L Alkaline Phosphatase 103 91 (34-104) U/L Albumin 4.1 3.7 (3.4-5.0) gm/dl (5) CHF (congestive heart failure) Heart failure chronicity: acute Heart failure type: diastolic Qualified Code(s): I50.31 - Acute diastolic (congestive) heart failure
[2023-10-08] MEDS: PANTOprazole 40 MG in DEXTROSE 5% MINI-B 100 ML IV SCH ×5 (03:19→23:54)
[2023-10-08 06:38] LABS: Hematocrit (blood only) 26.1 % (42.0-52.0); Hemoglobin 8.7 g/dl (14.0-18.0); Mean Corpuscular Hemoglobin 30.6 pg (25.0-34.0); Mean Corpuscular Hgb Conc 33.3 g/dL (32.0-36.0); Mean Corpuscular Volume 91.9 fL (80.0-100.0); Mean Platelet Volume 9.3 fL (9.4-12.4); Platelet Count 124 K/uL (130-400); RDW Standard Deviation 47.5 fL (36.4-46.3); Red Blood Count 2.84 M/uL (4.70-6.10)
[2023-10-08 07:10] LABS: Ferritin 25.1 ng/ml (8-388)
[2023-10-08] MEDS: INSULIN ASPART PER UNIT CHARGE SC SCH ×4 (08:19→20:56)
[2023-10-08] MEDS: cephALEXin 500 MG CAP PO SCH (08:26)
[2023-10-08] MEDS: METOPROLOL SUCC 25MG EXT REL TAB PO SCH (08:26)
[2023-10-08] MEDS: DONEPEZIL HCL 10 MG TAB PO SCH (08:27)
[2023-10-08] MEDS: CYANOCOBALAMIN (B-12) 500 MCG TABLET PO SCH (08:27)
[2023-10-08] MEDS: ESCITALOPRAM OXALATE 20 MG TAB PO SCH (08:27)
[2023-10-08] MEDS: buPROPion XL 150 MG TABCR PO SCH (08:27)
[2023-10-08] MEDS: FINASTERIDE 5 MG TAB PO SCH (08:27)
[2023-10-08] MEDS: FERROUS SULFATE 325 MG TAB PO SCH (08:28)
[2023-10-08] MEDS: AMANTADINE HCL 100 MG CAPSULE PO SCH (08:28)
--- NOTE | 2023-10-08 15:49 | Hospitalist Progress Note ---
Date of Service October 08, 2023 Assessment & Plan (1) Acute on chronic anemia: (2) Melena: Plan: Patient is 78 y/o M with PMH CAD s/p CABG, chronic diastolic heart failure, paroxysmal atrial fibrillation not anticoagulated secondary to anemia, CKD III, DM II, Parkinson's, BPH, GERD, chronic anemia presented to ER with complaint of melena and anemia on recent labs. c/o exertional shortness of breath. HGB has been downtrending from Hgb:11 over the past couple of months to 6.5 on 10/05/23. Patient follows with hematology, Dr. Smith. Receives IV iron monthly, last was 09/14. Melena Likely chronic blood loss anemia Likely due to diverticular/polyp, internal hemorrhoids bleed --H/O Colonoscopy 08/2022: Sigmoid diverticula, 4 mm polyp sigmoid colon, internal hemorrhoids --H/O EGD 08/2022: Normal esophagus, stomach and duodenum --CT ABD:No hydronephrosis or nephrolithiasis. Enlarged prostate gland measures 6.3 cm. Wall thickening of the urinary bladder, likely from bladder outlet obstruction. Diverticulosis, without acute diverticulitis. No small bowel obstruction. No free air. No pancreatitis. Reported heme positive stool in ER Not on anticoagulation S/P 2 units PRBC Monitor H&H and transfuse as needed Appreciate GI Input Follows with hematology as outpatient for Iron transfusions On Protonix drip Hb 8.7 today May need capsule endoscopy as outpatient Will change to p.o. Protonix tomorrow if no recurrence of bleeding Hypokalemia Replete electrolytes as needed Monitor (3) Elevated lipase: Plan: Patient without abdominal pain, nausea, vomiting or diarrhea CT abdomen showed no signs of pancreatitis Lipase levels improved (4) Coronary artery disease: Plan: S/P CABG Denies chest pain Not on aspirin currently per hematology secondary to anemia Continue metoprolol succinate (5) CHF (congestive heart failure): Plan: Moderate mitral regurgitation, EF: 60-65% per echo in 04/2022 Chronic BLE edema CXR without significant overload noted Resume torsemide as able (6) Paroxysmal A-fib: Plan: Not on anticoagulation secondary to anemia Continue metoprolol succinate (7) CKD (chronic kidney disease) stage 3, GFR 30-59 ml/min: Plan: Cr: 2.1. 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: Plan: Continue donepezil, amantadine (11) BPH (benign prostatic hyperplasia): Plan: Continue dutasteride Bladder scan as needed to monitor for any retention (12) GERD (gastroesophageal reflux disease): Plan: Continue IV Protonix DVT Px SCDs Re: Melena, Anemia Code Status Full Code Admission and Anticipated Discharge Date Admission Date: October 06, 2023 Subjective Patient is seen and examined at bedside Denies any bleeding issues currently Sitting in chair comfortably during my encounter Hemoglobin fairly stable Denies any nausea, vomiting, abdominal pain, chest pain Review of Systems Review of Systems: All systems reviewed & are unremarkable except as noted in Subjective Physical Exam Physical Exam: Physical Exam: Vitals signs as noted above General Appearance:Moderately built and nourished, no apparent distress Head: normocephalic, Atraumatic Eyes: normal inspection, EOMI Neck: supple, Trachea midline Respiratory/Chest: Normal breath sounds, CTA, No accessory muscle use Cardiovascular: S1, S2, + murmur Abdomen/GI:Soft, Non tender, Bowel sounds present Extremities/Musculoskeletal:normal inspection, chronic venous stasis changes, + edema Neurologic/Psych:AAOX3, grossly no focal neurological deficits, + hearing i mpairment Skin: normal color, warm Results & Data Results & Data Vital Signs (Past 12 Hours) Vital Signs Temp Pulse Pulse Resp BP Pulse Ox O2 Del Method 10/08/23 15:25 73 10/08/23 12:05 36.3 C L 69 16 133/91 100 Room Air 10/08/23 07:57 70 10/08/23 07:00 36.7 C 76 18 146/70 H 91 Room Air Laboratory Results Short CBC 10/08/23 Range/Units 05:26 WBC 3.80 L (4.8-10.8) K/ul Hgb 8.7 L (14.0-18.0) g/dl Hct 26.1 L (42.0-52.0) % Plt Count 124 L (130-400) K/uL (5) CHF (congestive heart failure) Heart failure chronicity: acute Heart failure type: diastolic Qualified Code(s): I50.31 - Acute diastolic (congestive) heart failure
[2023-10-09] MEDS: PANTOprazole 40 MG in DEXTROSE 5% MINI-B 100 ML IV SCH ×2 (04:24→09:45)
--- NOTE | 2023-10-09 05:49 | Electrocardiogram Report ---
Test Reason : Blood Pressure : / mmHG Vent. Rate : 074 BPM Atrial Rate : 074 BPM P-R Int : 144 ms QRS Dur : 094 ms QT Int : 428 ms P-R-T Axes : -56 -44 058 degrees QTc Int : 475 ms Sinus rhythm with Premature atrial complexes Left axis deviation Nonspecific ST and T wave abnormality Poor R wave progression, consider anterior AR vs. lead placement vs. LVH Prolonged QT Abnormal ECG When compared with ECG of 06-OCT-2023 16:06, No significant change Confirmed by Richardson Leone ([id number]) on 10/09/2023 5:49:30 AM Referred By: REFERRED SELF Confirmed By:Richardson Leone
[2023-10-09 07:32] LABS: Hematocrit (blood only) 26.5 % (42.0-52.0); Hemoglobin 8.7 g/dl (14.0-18.0); Mean Corpuscular Hemoglobin 30.3 pg (25.0-34.0); Mean Corpuscular Hgb Conc 32.8 g/dL (32.0-36.0); Mean Corpuscular Volume 92.3 fL (80.0-100.0); Mean Platelet Volume 9.5 fL (9.4-12.4); Platelet Count 125 K/uL (130-400); RDW Coefficient of Variation 13.6 % (11.5-14.5); RDW Standard Deviation 46.5 fL (36.4-46.3); Red Blood Count 2.87 M/uL (4.70-6.10); White Blood Count 3.97 K/ul (4.8-10.8)
[2023-10-09 07:50] LABS: BUN Creatinine Ratio 10.1 (10-20); Calcium 8.4 mg/dl (8.6-10.3); Creatinine Clr Calc Pharmacy 26.6 ml/min; Est GFR (African American) 34.1 ml/min; Est GFR (Non-African American) 29.4 ml/min; Potassium 3.8 mmol/L (3.5-5.1)
[2023-10-09] MEDS: buPROPion XL 150 MG TABCR PO SCH (08:52)
[2023-10-09] MEDS: DONEPEZIL HCL 10 MG TAB PO SCH (08:52)
[2023-10-09] MEDS: METOPROLOL SUCC 25MG EXT REL TAB PO SCH (08:52)
[2023-10-09] MEDS: CYANOCOBALAMIN (B-12) 500 MCG TABLET PO SCH (08:52)
[2023-10-09] MEDS: AMANTADINE HCL 100 MG CAPSULE PO SCH (08:52)
[2023-10-09] MEDS: FINASTERIDE 5 MG TAB PO SCH (08:52)
[2023-10-09] MEDS: FERROUS SULFATE 325 MG TAB PO SCH (08:52)
[2023-10-09] MEDS: ESCITALOPRAM OXALATE 20 MG TAB PO SCH (08:52)
[2023-10-09] MEDS: cephALEXin 500 MG CAP PO SCH (08:53)
[2023-10-09] MEDS: INSULIN ASPART PER UNIT CHARGE SC SCH ×2 (08:53→12:23)
[2023-10-09] MEDS ORDERED: PANTOprazole 40 MG TAB PO SCH (09:45)
--- NOTE | 2023-10-09 11:23 | Gastroenterology Progress Note ---
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 Workup in 2019 with a video capsule endoscopy and 2021 with EGD and colonoscopy did not show cause of anemia. Patient would like to be discharged. In retrospect he is not sure if he actually had black pasty bowel movements or if they were slightly dark from the iron supplement pills. Currently in the hospital bowel movements are brown. Recommend outpatient EGD colonoscopy and if these are normal video capsule endoscopy. I placed orders for these in the outpatient chart. Our office will reach out to the patient to arrange these soon. Plan As above. GI will sign off. Please notify us of new/worsening symptoms. Admission and Anticipated Discharge Date Admission Date: October 06, 2023 Supervising Physician Co-Signing Physician Notes Perlita yin seen and exained the patient with HALLIE Saldana whose note reflects our findings and plan. Subjective 78-year-old male patient admitted on 10/06/2023 for report of dark bowel movements, hemoglobin 6 9 on arrival, stable transfusion of 2 units of red blood cells at 8.7. BUN has been normal. Had occult positive stool on arrival. Bowel movements yesterday/today are brown. Review of Systems Review of Systems: ROS: Gen: Denies weakness, fevers, weight loss Eyes: No eye redness, or pain, no recent vision changes Resp: No SOB, no cough Cardio: No palpitations/irregular beats, no chest pain GI: No abdominal pain, no nausea/vomiting : Denies pain on urination Skin: No jaundice, itching or new rashes Physical Exam Constitutional: WD/WN, vitals as above Eyes: PERRL, conjunctivae normal, anicteric sclerae ENMT: external ear and nose normal, oropharynx normal Neck: trachea midline, no thyromegaly Respiratory: normal respiratory effort, lungs clear to auscultation Cardiovascular: RRR, no murmur, no edema Gastrointestinal (Abdomen): normal bowel sounds, soft, nontender, no hepatosplenomegaly Musculoskeletal: no cyanosis or clubbing, extremities motor strength 5/5 Skin: no rashes, warm and dry Neurologic: PERRL, EOMI, accommodation nl, no face palsy, no dysarthria Psychiatric: A+Ox3, euthymic affect Lymphatic: no cervical or axillary lymphadenopathy Results & Data Vital Signs (Past 12 Hours) Vital Signs Temp Pulse Pulse Pulse Resp BP Pulse Ox 10/09/23 10:40 36.5 C 65 59 L 18 146/74 H 99 10/09/23 07:57 36.5 C 65 18 146/74 H 99 10/09/23 05:57 76 10/09/23 04:39 36.6 C 59 L 20 155/81 H 99 10/08/23 23:53 37.1 C 71 20 164/66 H 96 O2 Del Method O2 Flow Rate 10/09/23 10:40 10/09/23 07:57 Nasal Cannula 2 10/09/23 05:57 10/09/23 04:39 Nasal Cannula 2 10/08/23 23:53 Nasal Cannula 2 Laboratory Results WBC 3.9, Hb 8.7, HCT 26.5, PLT 125, NA 140, K3.8, CL 105, CO2 31, BUN 4, CR 2.08, glucose 118. Diagnostic Findings Non contrast CTAP on 10/06/23: 1. No hydronephrosis or nephrolithiasis. 2. Enlarged prostate gland measures 6.3 cm. 3. Wall thickening of the urinary bladder, likely from bladder outlet obstruction. 4. Diverticulosis, without acute diverticulitis. No small bowel obstruction. No free air. 5. No pancreatitis.
--- NOTE | 2023-10-09 12:40 | Hospitalist Progress Note ---
Date of Service October 09, 2023 Assessment & Plan (1) Acute on chronic anemia: (2) Melena: Plan: Patient is 78 y/o M with PMH CAD s/p CABG, chronic diastolic heart failure, paroxysmal atrial fibrillation not anticoagulated secondary to anemia, CKD III, DM II, Parkinson's, BPH, GERD, chronic anemia presented to ER with complaint of melena and anemia on recent labs. c/o exertional shortness of breath. HGB has been downtrending from Hgb:11 over the past couple of months to 6.5 on 10/05/23. Patient follows with hematology, Dr. Smith. Receives IV iron monthly, last was 09/14. Melena Likely chronic blood loss anemia Likely due to diverticular/polyp, internal hemorrhoids bleed --H/O Colonoscopy 08/2022: Sigmoid diverticula, 4 mm polyp sigmoid colon, internal hemorrhoids --H/O EGD 08/2022: Normal esophagus, stomach and duodenum --CT ABD:No hydronephrosis or nephrolithiasis. Enlarged prostate gland measures 6.3 cm. Wall thickening of the urinary bladder, likely from bladder outlet obstruction. Diverticulosis, without acute diverticulitis. No small bowel obstruction. No free air. No pancreatitis. Reported heme positive stool in ER Not on anticoagulation S/P 2 units PRBC Monitor H&H and transfuse as needed Appreciate GI Input Follows with hematology as outpatient for Iron transfusions On Protonix drip>> changed to p.o. Protonix Hb 8.7 today Recommends EGD, colonoscopy and possible capsule endoscopy as outpatient Needs follow-up with GI upon discharge Hypokalemia Replete electrolytes as needed Monitor (3) Elevated lipase: Plan: Patient without abdominal pain, nausea, vomiting or diarrhea CT abdomen showed no signs of pancreatitis Lipase levels improved (4) Coronary artery disease: Plan: S/P CABG Denies chest pain Not on aspirin currently per hematology secondary to anemia Continue metoprolol succinate (5) CHF (congestive heart failure): Plan: Moderate mitral regurgitation, EF: 60-65% per echo in 04/2022 Chronic BLE edema CXR without significant overload noted Resume torsemide as able (6) Paroxysmal A-fib: Plan: Not on anticoagulation secondary to anemia Continue metoprolol succinate (7) CKD (chronic kidney disease) stage 3, GFR 30-59 ml/min: Plan: Cr: 2.1. 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 iron Received IV Venofer Follows with hematology as outpatient DVT Px SCDs Re: Melena, Anemia Code Status Full Code Disposition Home Admission and Anticipated Discharge Date Admission Date: October 06, 2023 Subjective Patient is seen and examined at bedside No new complaints No recurrence of bleeding Discussed with patient's family at bedside Also discussed with GI today Hb stable Denies any nausea, vomiting, abdominal pain, chest pain Plan to discharge home today Review of Systems Review of Systems: All systems reviewed & are unremarkable except as noted in Subjective Physical Exam Physical Exam: Physical Exam: Vitals signs as noted above General Appearance:Moderately built and nourished, no apparent distress Head: normocephalic, Atraumatic Eyes: normal inspection, EOMI Neck: supple, Trachea midline Respiratory/Chest: Normal breath sounds, CTA, No accessory muscle use Cardiovascular: S1, S2, + murmur Abdomen/GI:Soft, Non tender, Bowel sounds present Extremities/Musculoskeletal:normal inspection, chronic venous stasis changes, + edema Neurologic/Psych:AAOX3, grossly no focal neurological deficits, + hearing impairment Skin: normal color, warm Results & Data Results & Data Vital Signs (Past 12 Hours) Vital Signs Temp Pulse Pulse Pulse Resp BP Pulse Ox 10/09/23 12:03 36.5 C 68 16 118/72 97 10/09/23 10:40 36.5 C 65 59 L 18 146/74 H 99 10/09/23 07:57 36.5 C 65 18 146/74 H 99 10/09/23 05:57 76 10/09/23 04:39 36.6 C 59 L 20 155/81 H 99 O2 Del Method O2 Flow Rate 10/09/23 12:03 Room Air 10/09/23 10:40 10/09/23 07:57 Nasal Cannula 2 10/09/23 05:57 10/09/23 04:39 Nasal Cannula 2 Laboratory Results Short CBC 10/09/23 Range/Units 06:42 WBC 3.97 L (4.8-10.8) K/ul Hgb 8.7 L (14.0-18.0) g/dl Hct 26.5 L (42.0-52.0) % Plt Count 125 L (130-400) K/uL BMP 10/09/23 06:42 Sodium 140 Potassium 3.8 Chloride 105 Carbon Dioxide 31 BUN 21 Creatinine 2.08 H Glucose 118 H Calcium 8.4 L (5) CHF (congestive heart failure) Heart failure chronicity: acute Heart failure type: diastolic Qualified Code(s): I50.31 - Acute diastolic (congestive) heart failure
--- NOTE | 2023-10-09 12:56 | Discharge Summary ---
Date of Service October 09, 2023 Admission HPI Per Admitting Provider Patient is 78 y/o M with PMH CAD s/p CABG, chronic diastolic heart failure, paroxysmal atrial fibrillation not anticoagulated secondary to anemia, CKD III, DM II, Parkinson's, BPH, GERD, chronic anemia presented to ER with complaint of melena and anemia on recent labs. History obtained from patient, patient's spouse, and inpatient and outpatient chart review. Patient had outpatient hemoglobin of 6.5 on 10/05/2023. Patient's hemoglobin has been downtrending from Hgb 11 over the past couple of months. Patient follows with hematology, Dr. Smith. Has been receiving IV iron infusions monthly. Reports last i nfusion in August 2023. Patient states stools have been very dark in coloration. Has not noted any bright red blood per rectum. Denies abdominal pain. Has been having increased shortness of breath with exertion past couple of weeks. Denies any chest pain. Denies any syncope. Sleeps in recliner chronically secondary to chronic neck pain. Denies orthopnea. Has chronic lower extremity edema and is on torsemide. reports history of recurrent lower extremity cellulitis but has not noticed any erythema and patient denies any extremity pain and is on chronic cephalexin. Right lower leg is larger than left leg at baseline. History workup with colonoscopy and EGD in 08/2022 in past were mostly unremarkable. Uses walker for ambulation. Denies any recent falls. Forgot to take medications today. Denies fever/chills, diaphoresis, N/V/D/C, ESTEVEZ,CP, palpitations, cough, sore throat, rhinorrhea, abdominal pain, increased weakness, urinary symptoms. Admission Exam Per Admitting Provider General: no distress, WDWN Head: normocephalic, atraumatic Eyes: PERRL, conjunctiva pale, anicteric ENT: +hard of hearing, normal inspection external ears, nose, mucous membranes moist Neck: supple, trachea midline Lungs: clear, no respiratory distress, no wheezing/rhonchi/rales CV: RRR, + murmur, 2+ pretibial edema Abd: protuberant, normal BS, soft, non-tender Ext: no cyanosis, no calf tenderness Neuro: A&O x 3, no focal deficits noted, normal affect Skin: warm, dry, +pale Principal Diagnosis Melena Transfusion dependent anemia Hypokalemia Discharge Data Allergies Allergy/AdvReac Type Severity Reaction Status Date / Time NSAIDS (Non-Steroidal Allergy Intermediate Rash Verified 10/06/23 17:18 Anti-Inflamma YONATAN Inhibitors AdvReac Intermediate Cough Verified 10/06/23 17:18 carbidopa AdvReac Intermediate constipatio Verified 10/06/23 17:18 n levodopa AdvReac Intermediate constipatio Verified 10/06/23 17:18 n Consultations 10/06/23 17:01 ED Decision to Admit Stat 10/06/23 21:53 Consult Gastroenterology Routine Procedures Performed Laboratory Results WBC 3.97 K/ul (4.8-10.8) L 10/09/23 06:42 RBC 2.87 M/uL (4.70-6.10) L 10/09/23 06:42 Hgb 8.7 g/dl (14.0-18.0) L 10/09/23 06:42 Hct 26.5 % (42.0-52.0) L 10/09/23 06:42 MCV 92.3 fL (80.0-100.0) 10/09/23 06:42 MCH 30.3 pg (25.0-34.0) 10/09/23 06:42 MCHC 32.8 g/dL (32.0-36.0) 10/09/23 06:42 RDW Std Deviation 46.5 fL (36.4-46.3) H 10/09/23 06:42 RDW Coeff of Anny 13.6 % (11.5-14.5) 10/09/23 06:42 Plt Count 125 K/uL (130-400) L 10/09/23 06:42 MPV 9.5 fL (9.4-12.4) 10/09/23 06:42 Immature Gran % (Auto) 0.9 % 10/07/23 05:37 Neut % (Auto) 62.4 % 10/07/23 05:37 Lymph % (Auto) 22.2 % 10/07/23 05:37 Mcdonough % (Auto) 13.0 % 10/07/23 05:37 Eos % (Auto) 0.9 % 10/07/23 05:37 Baso % (Auto) 0.6 % 10/07/23 05:37 Neut # (Auto) 2.11 K/uL (1.40-6.50) 10/07/23 05:37 Lymph # (Auto) 0.75 K/uL (1.20-3.40) L 10/07/23 05:37 Mcdonough # (Auto) 0.44 K/uL (0.11-0.59) 10/07/23 05:37 Eos # (Auto) 0.03 K/uL (0.00-0.50) 10/07/23 05:37 Baso # (Auto) 0.02 K/uL (0.00-0.20) 10/07/23 05:37 Immature Gran # (Auto) 0.03 K/uL (0.01-0.20) 10/07/23 05:37 Absolute Nucleated RBC 0.02 K/uL (0.00-0.12) 10/06/23 16:09 Nucleated RBC % (auto) 0.5 % 10/06/23 16:09 Hypochromasia Present 10/06/23 16:09 Microcytosis Present 10/06/23 16:09 Sodium 140 mmol/L (136-145) 10/09/23 06:42 Potassium 3.8 mmol/L (3.5-5.1) 10/09/23 06:42 Chloride 105 mmol/L (98-107) 10/09/23 06:42 Carbon Dioxide 31 mmol/L (21-32) 10/09/23 06:42 Anion Gap 4 (3-11) 10/09/23 06:42 BUN 21 mg/dl (6-23) 10/09/23 06:42 Creatinine 2.08 mg/dl (0.6-1.4) H 10/09/23 06:42 Est Cr Clr Drug Dosing 26.6 ml/min 10/09/23 06:42 Est GFR ( Amer) 34.1 ml/min 10/09/23 06:42 Est GFR (Non-Af Amer) 29.4 ml/min 10/09/23 06:42 BUN/Creatinine Ratio 10.1 (10-20) 10/09/23 06:42 Glucose 118 mg/dl (70-99(Fasting)) H 10/09/23 06:42 POC Glucose 138 mg/dl (70-99) H 10/09/23 12:12 Estimat Average Glucose 108 mg/dl 10/07/23 05:37 Hemoglobin A1c 5.4 % (4.5-5.6) 10/07/23 05:37 Calcium 8.4 mg/dl (8.6-10.3) L 10/09/23 06:42 Iron 33 mcg/dl (35-175) L 10/08/23 05:26 Ferritin 25.1 ng/ml (8-388) 10/08/23 05:26 Total Bilirubin 0.9 mg/dl (0.2-1.0) 10/07/23 05:37 AST 14 U/L (13-39) 10/07/23 05:37 ALT 9 U/L (7-52) 10/07/23 05:37 Alkaline Phosphatase 91 U/L (34-104) 10/07/23 05:37 Troponin I High Sens 9.5 pg/ml (0-20) 10/06/23 16:09 Total Protein 5.5 gm/dl (6.0-8.3) L 10/07/23 05:37 Albumin 3.7 gm/dl (3.4-5.0) 10/07/23 05:37 Globulin 1.8 gm/dl (2.5-4.0) L 10/07/23 05:37 Albumin/Globulin Ratio 2.1 (0.9-2) H 10/07/23 05:37 Lipase 110 U/L (11-82) H 10/07/23 05:37 Blood Type A Positive 10/06/23 16:10 Antibody Screen NEGATIVE 10/06/23 16:10 Crossmatch See Detail 10/06/23 16:10 Impressions Chest X-Ray 10/06/23 15:52 SINGLE VIEW CHEST CLINICAL HISTORY: Atypical chest pain. FINDINGS: An AP, portable, upright chest radiograph is compared to study dated 01/24/2023 and correlated with chest CT dated 07/05/2022. The examination is degraded by portable technique and apical lordotic positioning. The patient is status post midline sternotomy. The heart is enlarged with atherosclerotic calcification of the thoracic aorta. The pulmonary vasculature is noncongested. Chronic interstitial thickening is similar to previous. There is mild bibasilar scarring/atelectasis. The lungs and pleural spaces are otherwise clear. No pneumothorax is seen. The skeletal structures are osteopenic. There are chronic/healed left-sided rib fractures. Degenerative change is noted in the shoulders and spine. Fusion hardware is noted in the cervical spine. IMPRESSION: Cardiomegaly with no active disease in the chest. ACT 112: Negative or not required by law. Electronically signed by: Gonzales Alvarado M.D. 10/06/2023 5:14 PM Abdomen/Pelvis CT 10/06/23 18:47 Exam(s): CT ABDOMEN + PELVIS Without Contrast EXAM: CT Abdomen and Pelvis Without Intravenous Contrast CLINICAL HISTORY: Reason for exam: r/o pancreatitis, melena. TECHNIQUE: Axial computed tomography images of the abdomen and pelvis without intravenous contrast. CTDI is 19.36 mGy and DLP is 954.43 mGy-cm. Automated exposure control was utilized for the study. A dose lowering technique was utilized adhering to the principles of ALARA. COMPARISON: CT abdomen pelvis September 08, 2022. FINDINGS: Lung bases: Unremarkable. No mass. No consolidation. Heart: Cardiomegaly. ABDOMEN: Liver: Unremarkable. Gallbladder and bile ducts: Unremarkable. No calcified stones. No ductal dilation. Pancreas: Unremarkable. No ductal dilation. Spleen: Unremarkable. No splenomegaly. Adrenals: Unremarkable. No mass. Kidneys and ureters: Unremarkable. No hydronephrosis or nephrolithiasis. Stomach and bowel: Diverticulosis, without acute diverticulitis. No small bowel obstruction. No free air. PELVIS: Appendix: No findings to suggest acute appendicitis. Bladder: Wall thickening of the urinary bladder, likely from bladder outlet obstruction. No stones. Reproductive: Enlarged prostate gland measures 6.3 cm. ABDOMEN and PELVIS: Intraperitoneal space: See above. Bones/joints: Sternotomy wires. Degenerative changes of the spine. RIGHT hip arthroplasty. No acute fracture. No dislocation. Soft tissues: Unremarkable. Vasculature: Atherosclerotic changes of the aorta. No abdominal aortic aneurysm. Lymph nodes: Unremarkable. No enlarged lymph nodes. IMPRESSION: 1. No hydronephrosis or nephrolithiasis. 2. Enlarged prostate gland measures 6.3 cm. 3. Wall thickening of the urinary bladder, likely from bladder outlet obstruction. 4. Diverticulosis, without acute diverticulitis. No small bowel obstruction. No free air. 5. No pancreatitis. Electronically signed by: Cam Felton MD 10/06/23 20:27 PM Ordered Studies 10/06/23 18:47 CT Abd and Pelvis [CT abd pelvis wo con] Stat Hospital Course (1) Acute on chronic anemia: (2) Melena: Patient is 78 y/o M with PMH CAD s/p CABG, chronic diastolic heart failure, paroxysmal atrial fibrillation not anticoagulated secondary to anemia, CKD III, DM II, Parkinson's, BPH, GERD, chronic anemia presented to ER with complaint of melena and anemia on recent labs. c/o exertional shortness of breath. HGB has been downtrending from Hgb:11 over the past couple of months to 6.5 on 10/05/23. Patient follows with hematology, Dr. Smith. Receives IV iron monthly, last was 09/14. Melena Likely chronic blood loss anemia Likely due to diverticular/polyp, internal hemorrhoids bleed --H/O Colonoscopy 08/2022: Sigmoid diverticula, 4 mm polyp sigmoid colon, internal hemorrhoids --H/O EGD 08/2022: Normal esophagus, stomach and duodenum --CT ABD:No hydronephrosis or nephrolithiasis. Enlarged prostate gland measures 6.3 cm. Wall thickening of the urinary bladder, likely from bladder outlet obstruction. Diverticulosis, without acute diverticulitis. No small bowel obstruction. No free air. No pancreatitis. Reported heme positive stool in ER Not on anticoagulation S/P 2 units PRBC Monitor H&H and transfuse as needed Appreciate GI Input Follows with hematology as outpatient for Iron transfusions On Protonix drip>> changed to p.o. Protonix Hb 8.7 today Recommends EGD, colonoscopy and possible capsule endoscopy as outpatient Needs follow-up with GI upon discharge Hypokalemia Replete electrolytes as needed Monitor (3) Elevated lipase: Patient without abdominal pain, nausea, vomiting or diarrhea CT abdomen showed no signs of pancreatitis Lipase levels improved (4) Coronary artery disease: S/P CABG Denies chest pain Not on aspirin currently per hematology secondary to anemia Continue metoprolol succinate (5) CHF (congestive heart failure): Moderate mitral regurgitation, EF: 60-65% per echo in 04/2022 Chronic BLE edema CXR without significant overload noted Resume torsemide as able (6) Paroxysmal A-fib: Not on anticoagulation secondary to anemia Continue metoprolol succinate (7) CKD (chronic kidney disease) stage 3, GFR 30-59 ml/min: Cr: 2.1. Baseline ~1.9 Monitor renal functions, avoid nephrotoxic agents when possible (8) Diabetes type 2, controlled: A1c: 6.1 on 04/12/2023 Hold home metformin NovoLog correction sliding scale only Monitor BGs (9) Primary parkinsonism: (10) Dementia associated with Parkinson's disease: Continue donepezil, amantadine (11) BPH (benign prostatic hyperplasia): Continue dutasteride Bladder scan as needed to monitor for any retention (12) GERD (gastroesophageal reflux disease): Continue IV Protonix H/O adry deficiency anemia Intolerance to p.o. iron Received IV Venofer Follows with hematology as outpatient DVT Px SCDs Re: Melena, Anemia Code Status Full Code Disposition Home Total Time Total Time Spent Total Time Spent (In Minutes): 59 minutes Discharge Plan Discharge Items Patient Disposition: Home - Self-Care Reason For Visit: ANEMIA Discharge Diagnosis: Melena Transfusion dependent anemia Hypokalemia Activity: Per Instructions section Exercise/Sports: Gradually increase as tolerated Non-emergency contact: Primary Care Provider and Medical Editor Call non-emergency contact if: you have any medication questions, your symptoms worsen, your pain is concerning for you and you have a fever Follow-up/Referrals: Cisco Buitrago CRNP [Nurse Practitioner] - (The GI office will contact you for further testing/appointment.) Michael Hinton MD [Primary Care Provider] - (Date & Time 10/13/2023 10:00 AM Provider Xi Pina CRNP Department Family [facility] ) Diet: Carb Consistent or DM2 and Heart Healthy Addtl Attending Provider Instructions: Follow-up with your primary care physician Dr. Hinton on 10/13/2023 10:00 AM Follow-up with your instructor of sociology Cisco STERLING as advised. Office will call you with appointment. Follow-up with your casey saw operator Dr. Manuel as advised --Get outpatient EGD, colonoscopy and possible capsule endoscopy as recommended by your instructor of sociology Seek immediate medical attention if your symptoms reoccur or worsen Please take all medications as instructed on discharge list below. Please call if you have any questions or problems. You can reach a [facility] hospitalist on duty at [facility] 24 hours a day by calling [phone] Pending Studies at Discharge: No Stand-Alone Forms: My [facility], Smoking Cessation Medications and DC Order Prescriptions: Continued torsemide 20 mg tablet 20 mg PO QAM MDD 40mg Patient Comments: may increase due to fluid retention Rx Instructions: Can take an additional 20mg if needed for more swelling/weight gain. escitalopram oxalate 20 mg tablet 20 mg PO QAM Qty: 90 3RF metoprolol succinate 25 mg tablet extended release 24 hr 25 mg PO QAM Qty: 90 3RF amantadine HCl 100 mg capsule 100 mg PO QAM ferrous sulfate [FeroSul] 325 mg (65 mg iron) Tablet 325 mg PO QAM albuterol sulfate 90 mcg/actuation HFA aerosol inhaler 2 puff INHALATION QID PRN (Reason: Shortness Of Breath Or Wheezing) betamethasone dipropionate 0.05 % Cream 1 applic TOPICAL BID PRN (Reason: Skin Irritation) Rx Instructions: apply to trunk rash twice daily as needed cyanocobalamin (vitamin B-12) [Vitamin B-12] 1,000 mcg Tablet 2,000 mcg PO QAM dutasteride 0.5 mg Capsule 0.5 mg PO QAM metformin 500 mg tablet extended release 24 hr 500 mg PO QAM bupropion HCl [Wellbutrin XL] 150 mg tablet extended release 24 hr 150 mg PO QAM fluocinonide 0.05 % solution 1 applic TOPICAL DAILY PRN (Reason: after bathing) Rx Instructions: apply to scalp cephalexin 500 mg capsule 500 mg PO DAILY donepezil 10 mg tablet 10 mg PO DAILY Changed pantoprazole 40 mg tablet,delayed release (DR/EC) 40 mg PO BID Qty: 60 1RF Discharge Orders: Discharge Order (Routine); Ordered 10/09/23 Ordered By: Seven Amador Admission Data Admit Date/Time: 10/06/23 18:46 Attending Provider: Seven Amador Admit Provider: Jeff Gibbs Primary Care Provider: Michael Hinton Other Providers: Jeff Gibbs; John Lombardo Jr Other Interventions: Discharge Summary Assessment (RN) Last Done: 10/09/23 10:40
== END 2023-10-09 13:49 | disposition home or self-care (01) | DRG 811 ==
LOC: ED 15:14 → EDINP 18:46 → SUATTDRO 18:46 → 2N 21:53

== ENCOUNTER 2024-02-29 15:07 | Inpatient (IN) ==
[2024-02-29 16:12] LABS: Partial Thromboplastin Ratio 0.9; Partial Thromboplastin Time 23 Seconds (21-31); Prothrombin Time 10.9 Seconds (9.0-12.0)
--- NOTE | 2024-02-29 16:21 | Emergency Department Note ---
Impression & Plan Anemia, Acute GI bleeding ED Provider Note Diagnosis: GI bleed, anemia Disposition: Admission CHIEF COMPLAINT: Anemia HPI: Patient is a 78-year-old male with history of iron deficiency anemia presenting with low blood counts on outpatient lab work. Patient's states that his blood count was 10 2 weeks ago and today they were called and told it was 6.9. Patient is on no blood thinners. Patient for the past 2 to 3 days has been having dark stool. Patient has not had any bright red blood. Patient denies any abdominal pain nausea or vomiting. states that this is occurred multiple times previously. Patient's iron levels were appropriate recently and infusion was skipped per team. Patient has been experiencing generalized weakness and been extra tired per the . PAST MEDICAL HISTORY: See Below PAST SURGICAL HISTORY: See Below SOCIAL HISTORY: See Below HOME MEDICATIONS: See Below ALLERGIES: See Below VITALS: See Below PHYSICAL EXAMINATION: GENERAL: Well appearing, well nourished, NAD, non-toxic. EYE EXAM: Normal conjunctiva. OROPHARYNX: Moist mucus membranes. Grossly normal dentition. NECK: Supple, LUNGS: Clear to auscultation. Normal chest wall mechanics. HEART: NSR ABDOMEN: Abdomen soft, non-tender, normo-active bowel sounds, no masses, no rebound or guarding BACK: No CVA TTP. SKIN: No rashes and no bruising. UPPER EXTREMITIES: Upper extremities are grossly normal LOWER EXTREMITIES: Grossly normal, no edema. NEURO EXAM: A&O x3,, normal speech, moves all 4 extremities PSYCH: Cooperative MEDICAL DECISION MAKING: History obtained from: Patient ER Course: . Patient is a 78-year-old male with history of iron deficiency anemia. Patient follows with hematology regularly. Patient's last blood transfusion middle of January as well as iron infusion. Patient has been having black stool over the past 2 to 3 days time. Patient denies any abdominal pain. Patient's abdomen soft nontender. Patient not on any blood thinners at this time. Patient had outpatient blood work performed which showed blood count below 7. Patient typed and screened and ordered 2 units packed red blood cells. Consent was signed at bedside and patient understood risk-benefit. Patient had Hemoccult guaiac testing performed which showed dark black stool that was Hemoccult positive no bright red blood. Nurse beauty sales advisor was present. Patient admitted to hospital service for further treatment and evaluation Labs (independently interpreted) are significant for: Hemoglobin below 7 Imaging results (independently interpreted): Upright chest no free air EKG interpretation (independently interpreted): I do not agree with computer tracing read of A-fib there looks to be P waves present before QRS is no ST segment elevation or depression Medications given: 2 units packed red blood cells Consultants: Hospitalist Triage Nursing notes reviewed and agree them. 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 GERD (gastroesophageal reflux disease) HTN (hypertension) Dyslipidemia CKD (chronic kidney disease) stage 3, GFR 30-59 ml/min Diabetes type 2, controlled CHI (closed head injury) Diastolic dysfunction Lower extremity edema HUNTER (iron deficiency anemia) Ambulatory dysfunction Seasonal allergies Moderate mitral regurgitation Thoracic aortic aneurysm Lumbar spondylosis MUSTAFA (dyspnea on exertion) Coronary aneurysm (2011) Adverse reaction to anesthetic agent Orthostatic hypotension (07/2019) Peripheral arterial disease Recurrent cellulitis of lower extremity Anxiety BPH (benign prostatic hyperplasia) CAD (coronary artery disease) Surgical History History of carpal tunnel release of both wrists History of esophagogastroduodenoscopy (EGD) Hx of colonoscopy Hx of bilateral cataract extraction History of neck surgery S/P wrist surgery S/P CABG (coronary artery bypass graft) (2011) S/P triple vessel bypass (2011) History of right hip replacement H/O foot surgery H/O eye surgery Family History Unknown No problems noted. Father Hypertension, Onset Age: 40 Mother Hypertension COPD (chronic obstructive pulmonary disease) Diabetes Brother Allergies Asthma Denies family history of Prostate cancer Hearing loss No family history of adverse response to anesthesia No family history of bleeding disorder Heart disease Cancer Stroke Social History Smoking Status: Never smoker Tobacco Type: Cigars Second Hand Exposure: No; Do You Dip or Chew Tobacco: No; Hx Alcohol Use: No Hx Substance Use: No Preferred Language: [place] Communication Ability: Effective Communication Ability Comment: Hard of hearing Licensed Acupuncturist Required: No Beliefs That Will Affect Care: None marital status: Current Living Situation: Spouse Current Living Situation Comment: Lives at home with spouse Feels Safe at Home: Yes Assistive Devices: Oxygen - at Night and Walker Allergies Allergies Allergy/AdvReac Type Severity Reaction Status Date / Time NSAIDS (Non-Steroidal Allergy Intermediate Rash Verified 02/29/24 21:08 Anti-Inflamma YONATAN Inhibitors AdvReac Intermediate Cough Verified 02/29/24 21:08 carbidopa AdvReac Intermediate constipatio Verified 02/29/24 21:08 n levodopa AdvReac Intermediate constipatio Verified 02/29/24 21:08 n Home Meds Home Medications Medication Instructions Recorded Confirmed amantadine HCl 100 mg capsule 100 mg PO .DAILY @LUNCH 05/22/20 02/29/24 bupropion HCl 150 mg 24 hr tablet, 150 mg PO QAM 06/17/21 02/02/24 extended release (Wellbutrin XL) metformin 500 mg tablet,extended 500 mg PO QAM 06/17/21 02/02/24 release 24 hr torsemide 20 mg tablet 40 mg PO QAM 11/28/22 02/29/24 cyanocobalamin (vitamin B-12) 2,000 mcg PO QAM 01/24/23 02/02/24 1,000 mcg tablet (Vitamin B-12) dutasteride 0.5 mg capsule 0.5 mg PO QAM 01/24/23 02/29/24 donepezil 10 mg tablet 10 mg PO QPM 10/06/23 02/29/24 atorvastatin 40 mg tablet 40 mg PO DAILY 01/08/24 02/02/24 acetaminophen 500 mg tablet 1,000 mg PO Q8H PRN Pain 02/29/24 02/29/24 acetaminophen 500 mg tablet 1,000 mg PO QAM 02/29/24 02/29/24 betamethasone dipropionate 0.05 % 1 applic topical BID 02/29/24 02/29/24 topical ointment cholecalciferol (vitamin D3) 25 25 mcg PO QPM 02/29/24 02/29/24 mcg (1,000 unit) capsule levalbuterol tartrate 45 1 puff inhalation Q6H PRN Wheezing 02/29/24 02/29/24 mcg/actuation aerosol inhaler pantoprazole 40 mg tablet,delayed 40 mg PO QAM 02/29/24 02/29/24 release Previous Rx's Medication Instructions Recorded metoprolol succinate 25 mg 25 mg PO QAM #90 tabs 03/21/23 tablet,extended release 24 hr escitalopram oxalate 20 mg tablet 20 mg PO QAM #90 tabs 02/09/24 Results & Data (ED) Vital Signs Vital Signs - 24 hr 02/29/24 15:18 02/29/24 16:03 02/29/24 16:03 Temperature 36.5 C Temperature Source Temporal Artery Scan Pulse Rate 85 Pulse Rate [Apical] 71 Pulse Rate from SpO2 Sensor Pulse Rhythm Regular Pulse Rhythm [Apical] Regular Respiratory Rate 20 18 Respiratory Effort / Characteristics Non-Labored Spontaneous Non-Labored Spontaneous Respiratory Depth Normal Normal Respiratory Pattern Regular Blood Pressure 136/65 Blood Pressure [Right Arm] 133/72 Blood Pressure Mean 88 Blood Pressure Mean [Right Arm] 92 Blood Pressure Position Blood Pressure Position [Right Arm] Lying Pulse Oximetry 97 95 94 Oxygen Delivery Method Room Air Room Air Room Air Sepsis Recent Fever Within 48 Hours No Sepsis New/Unexplained Change in Mental Status No Sepsis Action Taken by Nursing No Action Required 02/29/24 16:04 02/29/24 16:06 02/29/24 16:30 Temperature Temperature Source Pulse Rate 77 81 81 Pulse Rate [Apical] Pulse Rate from SpO2 Sensor 86 79 Pulse Rhythm Pulse Rhythm [Apical] Respiratory Rate 23 21 Respiratory Effort / Characteristics Respiratory Depth Respiratory Pattern Blood Pressure Blood Pressure [Right Arm] Blood Pressure Mean Blood Pressure Mean [Right Arm] Blood Pressure Position Blood Pressure Position [Right Arm] Pulse Oximetry 96 93 Oxygen Delivery Method Sepsis Recent Fever Within 48 Hours Sepsis New/Unexplained Change in Mental Status Sepsis Action Taken by Nursing 02/29/24 17:00 02/29/24 17:30 02/29/24 18:00 Temperature Temperature Source Pulse Rate 78 71 79 Pulse Rate [Apical] Pulse Rate from SpO2 Sensor 78 75 79 Pulse Rhythm Pulse Rhythm [Apical] Respiratory Rate 22 19 Respiratory Effort / Characteristics Respiratory Depth Respiratory Pattern Blood Pressure Blood Pressure [Right Arm] Blood Pressure Mean Blood Pressure Mean [Right Arm] Blood Pressure Position Blood Pressure Position [Right Arm] Pulse Oximetry 96 94 93 Oxygen Delivery Method Sepsis Recent Fever Within 48 Hours Sepsis New/Unexplained Change in Mental Status Sepsis Action Taken by Nursing 02/29/24 18:30 02/29/24 18:44 02/29/24 19:00 Temperature 36.7 C Temperature Source Oral Pulse Rate 80 72 78 Pulse Rate [Apical] Pulse Rate from SpO2 Sensor 80 79 Pulse Rhythm Pulse Rhythm [Apical] Respiratory Rate 17 18 23 Respiratory Effort / Characteristics Respiratory Depth Respiratory Pattern Blood Pressure 133/72 Blood Pressure [Right Arm] Blood Pressure Mean 92 Blood Pressure Mean [Right Arm] Blood Pressure Position Lying Blood Pressure Position [Right Arm] Pulse Oximetry 96 95 96 Oxygen Delivery Method Sepsis Recent Fever Within 48 Hours Sepsis New/Unexplained Change in Mental Status Sepsis Action Taken by Nursing 02/29/24 19:02 02/29/24 19:17 Temperature 36.7 C 36.8 C Temperature Source Oral Oral Pulse Rate 78 77 Pulse Rate [Apical] Pulse Rate from SpO2 Sensor Pulse Rhythm Pulse Rhythm [Apical] Respiratory Rate 20 21 Respiratory Effort / Characteristics Respiratory Depth Respiratory Pattern Blood Pressure 144/84 H 135/82 Blood Pressure [Right Arm] Blood Pressure Mean 104 99 Blood Pressure Mean [Right Arm] Blood Pressure Position Lying Blood Pressure Position [Right Arm] Pulse Oximetry 96 Oxygen Delivery Method Sepsis Recent Fever Within 48 Hours Sepsis New/Unexplained Change in Mental Status Sepsis Action Taken by Nursing Laboratory Data 02/29/24 15:50 02/29/24 15:50 Lab Results 02/29/24 02/29/24 Range/Units 15:50 18:27 WBC 3.91 L (4.8-10.8) K/ul RBC 1.96 L (4.70-6.10) M/uL Hgb 6.7 L* (14.0-18.0) g/dl Hct 20.5 L* (42.0-52.0) % MCV 104.6 H (80.0-100.0) fL MCH 34.2 H (25.0-34.0) pg MCHC 32.7 (32.0-36.0) g/dL RDW Std Deviation 63.3 H (36.4-46.3) fL RDW Coeff of Anny 16.9 H (11.5-14.5) % Plt Count 159 (130-400) K/uL MPV 9.5 (9.4-12.4) fL PT 10.9 (9.0-12.0) Seconds INR 1.0 (0.9-1.1) APTT 23 (21-31) Seconds PTT Ratio 0.9 Sodium 140 (136-145) mmol/L Potassium 4.0 (3.5-5.1) mmol/L Chloride 104 (98-107) mmol/L Carbon Dioxide 28 (21-32) mmol/L Anion Gap 8 (3-11) BUN 48 H (6-23) mg/dl Creatinine 2.04 H (0.6-1.4) mg/dl Est Cr Clr Drug Dosing Not Reportable Est GFR ( Amer) 34.9 ml/min Est GFR (Non-Af Amer) 30.1 ml/min BUN/Creatinine Ratio 23.5 H (10-20) Glucose 266 H (70-99(Fasting)) mg/dl Calcium 9.1 (8.6-10.3) mg/dl Iron 63 (35-175) mcg/dl TIBC 281 (250-450) mcg/dl Unsaturated IBC 218 (155-355) mcg/dl Transferrin % Sat 22 (20-50) % Total Bilirubin 0.3 (0.2-1.0) mg/dl AST 16 (13-39) U/L ALT 13 (7-52) U/L Alkaline Phosphatase 109 H (34-104) U/L Troponin I High Sens 12.3 (0-20) pg/ml Total Protein 5.6 L (6.0-8.3) gm/dl Albumin 3.5 (3.4-5.0) gm/dl Globulin 2.1 L (2.5-4.0) gm/dl Albumin/Globulin Ratio 1.7 (0.9-2) POC Stool Occult Blood Positive A (Negative) Blood Type A Positive Antibody Screen NEGATIVE Crossmatch See Detail Administered Medications Discontinued Medications Pantoprazole Sodium 40 mg/ (Syringe) 10 mls @ 5 mls/min IV NOW ONE Stop: 02/29/24 16:20 Last Admin: 02/29/24 16:36 Dose: 5 mls/min Documented By: KAT Imaging Data Radiologist's Impression: Chest X-Ray 02/29/24 16:19 SINGLE VIEW CHEST CLINICAL HISTORY: Dyspnea FINDINGS: An AP, portable, upright chest radiograph is compared to study dated 10/06/2023. The examination is degraded by portable technique and apical lordotic positioning. The patient is status post midline sternotomy. The heart is enlarged noting atherosclerotic calcification of the thoracic aorta. The pulmonary vasculature is noncongested. Chronic interstitial thickening is similar to previous. There is bibasilar scarring/atelectasis. No airspace consolidation or large pleural effusion is identified. No pneumothorax is seen. The skeletal structures are osteopenic. There are chronic/healed left-sided rib fractures. Arthritic change is seen in the shoulders. IMPRESSION: Cardiomegaly with no acute cardiopulmonary abnormality identified. ACT 112: Negative or not required by law. Electronically signed by: Gonzales Alvarado M.D. 02/29/2024 4:41 PM Discharge Plan Visit Data Chief Complaint: Rectal Bleed Stated Complaint: BLOOD IN STOOL, COLD, TIRED, SOB, REF BY DOC ED Provider: Kirk Estrada Discharge Problem: Anemia, Acute GI bleeding Patient Disposition: Admitted As Inpatient Discharge Instructions Interventions: ED Discharge Assessment Last Done: 02/29/24 21:03
[2024-02-29 16:25] LABS: Alanine Aminotransferase 13 U/L (7-52); Albumin Globulin Ratio 1.7 (0.9-2); Albumin Level 3.5 gm/dl (3.4-5.0); Alkaline Phosphatase 109 U/L (34-104); Anion Gap 8 (3-11); Aspartate Aminotransferase 16 U/L (13-39); BUN Creatinine Ratio 23.5 (10-20); Bilirubin,Total 0.3 mg/dl (0.2-1.0); Blood Urea Nitrogen 48 mg/dl (6-23); Calcium 9.1 mg/dl (8.6-10.3); Carbon Dioxide 28 mmol/L (21-32); Chloride 104 mmol/L (98-107); Est GFR (African American) 34.9 ml/min; Est GFR (Non-African American) 30.1 ml/min; Globulin 2.1 gm/dl (2.5-4.0); Glucose 266 mg/dl (70-99(Fasting)); Sodium 140 mmol/L (136-145); Total Protein 5.6 gm/dl (6.0-8.3)
[2024-02-29 16:28] LABS: Troponin I High Sensitivity 12.3 pg/ml (0-20)
[2024-02-29 16:36] LABS: Hematocrit (blood only) 20.5 % (42.0-52.0); Hemoglobin 6.7 g/dl (14.0-18.0); Mean Corpuscular Hemoglobin 34.2 pg (25.0-34.0); Mean Corpuscular Hgb Conc 32.7 g/dL (32.0-36.0); Mean Corpuscular Volume 104.6 fL (80.0-100.0); Mean Platelet Volume 9.5 fL (9.4-12.4); Platelet Count 159 K/uL (130-400); RDW Coefficient of Variation 16.9 % (11.5-14.5); RDW Standard Deviation 63.3 fL (36.4-46.3); Red Blood Count 1.96 M/uL (4.70-6.10); White Blood Count 3.91 K/ul (4.8-10.8)
[2024-02-29] MEDS: PANTOprazole 40 MG in SYRINGE 0 ML IV ONE (16:36)
--- NOTE | 2024-02-29 16:42 | XRay Report ---
SINGLE VIEW CHEST CLINICAL HISTORY: Dyspnea FINDINGS: An AP, portable, upright chest radiograph is compared to study dated 10/06/2023. The examin ation is degraded by portable technique and apical lordotic positioning. The patient is status post m idline sternotomy. The heart is enlarged noting atherosclerotic calcification of the thoracic aorta. The pulmonary vasculature is noncongested. Chronic interstitial thickening is similar to previous. Th ere is bibasilar scarring/atelectasis. No airspace consolidation or large pleural effusion is identif ied. No pneumothorax is seen. The skeletal structures are osteopenic. There are chronic/healed left-s ided rib fractures. Arthritic change is seen in the shoulders. IMPRESSION: Cardiomegaly with no acute cardiopulmonary abnormality identified. ACT 112: Negative or not required by law. Electronically signed by: Gonzales Alvarado M.D. 02/29/2024 4:41 PM
[2024-02-29 16:43] LABS: Iron 63 mcg/dl (35-175); Total Iron Binding Cap Calc 281 mcg/dl (250-450); Transferrin (FE) Percent Satur 22 % (20-50); Unsaturated Iron Binding Cap 218 mcg/dl (155-355)
[2024-02-29] MEDS ORDERED: SODIUM CHLORIDE 0.9% 250 ML IV PRN (16:57)
--- NOTE | 2024-02-29 20:28 | History & Physical Report ---
Date of Service February 29, 2024 Assessment & Plan (1) Acute on chronic anemia: Plan: 78-year-old male with past medical history significant for type 2 diabetes, chronic diastolic CHF, CKD stage III, CAD s/p CABG, hypertension, wandering atrial pacemaker, atrial fibrillation, GERD without esophagitis, BPH, urge incontinence, stasis ulcers of right lower extremity, osteoarthritis of both knees, primary parkinsonism, dementia with Parkinson disease, iron deficiency anemia, cervical spinal stenosis, generalized anxiety disorder, history of cellulitis, presents with some blood per rectum and also black stools and anemia.Patient has chronic iron deficiency anemia. He received 2 units of PRBCs and iron infusion on February 01 as per the . And lately was feeling more weaker and sleeping a lot and outpatient labs showed hemoglobin in 6's. Patient also states he has black stools for 3 days. In last few days he is wiping some blood when he is cleaning his stools. Denies any abdominal pain. Micturating okay. No hematuria. His right leg is chronically swollen as per patient. He has some ulcers on that leg. Ambulates with a walker. Appetite is good. Denies any chest pain or shortness of breath. No headache. Has chronic neck pain. Vision is okay. No runny nose. Some dry throat. Occasional cough. No earaches. No back pain. Patient is very hard of hearing and has to write on the paper. Currently resting comfortably and hemodynamically stable. Acute on chronic anemia Chronic iron deficiency anemia Likely having black stools and also some blood per rectum Hemoglobin 6.7 today Hemoccult positive in the ER 2 units of PRBC ordered in the ER Received dose of IV Protonix Will continue with PPI drip N.p.o. IV fluids H&H every 6 hours Telemetry Consult GI in a.m. Last colonoscopy in October 18, 2023 showed diverticulosis in the sigmoid colon and internal hemorrhoids Last EGD in October 18, 2023 showed gastritis. And also question of some ischemia. And recommendation was Doppler mesenteric ultrasound. Await GI inputs Close monitor CKD stage III Baseline creatinine 1.7-1.9 Presented creatinine of 2 Will follow repeat labs in a.m. Chronic diastolic CHF Continue home diuretics Monitor for volume overload Right lower extremity swelling Seems chronic Will check ultrasound Atrial fibrillation Rate controlled with metoprolol succinate Not on anticoagulation Hyperlipidemia On statin CAD s/p CABG On statin and beta-augie Depression Generalized anxiety disorder On Lexapro and bupropion. BPH On Avodart GERD On Protonix Dementia On memantine and donezepil DVT prophylaxis SCDs Disposition Telemetry Full code History of Present Illness Chief Complaint: GI bleed and anemia Primary Care Provider: Michael Hinton MD 78-year-old male with past medical history significant for type 2 diabetes, chronic diastolic CHF, CKD stage III, CAD s/p CABG, hypertension, wandering atrial pacemaker, atrial fibrillation, GERD without esophagitis, BPH, urge incontinence, stasis ulcers of right lower extremity, osteoarthritis of both knees, primary parkinsonism, dementia with Parkinson disease, iron deficiency anemia, cervical spinal stenosis, generalized anxiety disorder, history of cellulitis, presents with some blood per rectum and also black stools and anem ia.Patient has chronic iron deficiency anemia. He received 2 units of PRBCs and iron infusion on February 01 as per the . And lately was feeling more weaker and sleeping a lot and outpatient labs showed hemoglobin in 6's. Patient also states he has black stools for 3 days. In last few days he is wiping some blood when he is cleaning his stools. Denies any abdominal pain. Micturating okay. No hematuria. His right leg is chronically swollen as per patient. He has some ulcers on that leg. Ambulates with a walker. Appetite is good. Denies any chest pain or shortness of breath. No headache. Has chronic neck pain. Vision is okay. No runny nose. Some dry throat. Occasional cough. No earaches. No back pain. Patient is very hard of hearing and has to write on the paper. Currently resting comfortably and hemodynamically stable. Past medical history. As mentioned above Past surgical history. Carpal tunnel surgery. Colonoscopy. EGD. Hammertoe surgery. Right ankle fusion surgery. C3/6 laminectomy and posterior fusion. Bilateral cataract surgery. Tonsillectomy and adenoidectomy. Revision of upper eyelid. Right hip replacement. Social history. . No smoking. No alcohol use. No drug use. Family history. Mother had CAD. COPD. Father had hypertension. Stroke. Daughter has bipolar disorder. Asthma. Allergies Allergy/AdvReac Type Severity Reaction Status Date / Time NSAIDS (Non-Steroidal Allergy Intermediate Rash Verified 02/29/24 21:08 Anti-Inflamma YONATAN Inhibitors AdvReac Intermediate Cough Verified 02/29/24 21:08 carbidopa AdvReac Intermediate constipatio Verified 02/29/24 21:08 n levodopa AdvReac Intermediate constipatio Verified 02/29/24 21:08 n Home Medications Medication Instructions Recorded Confirmed Type amantadine HCl 100 mg capsule 100 mg PO .DAILY @LUNCH 05/22/20 02/29/24 History torsemide 20 mg tablet 40 mg PO QAM 11/28/22 02/29/24 History dutasteride 0.5 mg capsule 0.5 mg PO QAM 01/24/23 02/29/24 History metoprolol succinate 25 mg 25 mg PO QAM #90 tabs 03/21/23 02/29/24 Rx tablet,extended release 24 hr donepezil 10 mg tablet 10 mg PO QPM 10/06/23 02/29/24 History atorvastatin 40 mg tablet 40 mg PO QAM 01/08/24 02/29/24 History escitalopram oxalate 20 mg tablet 20 mg PO QAM #90 tabs 02/09/24 02/29/24 Rx acetaminophen 500 mg tablet 1,000 mg PO Q8H PRN Pain 02/29/24 02/29/24 History acetaminophen 500 mg tablet 1,000 mg PO QAM 02/29/24 02/29/24 History betamethasone dipropionate 0.05 % 1 applic topical BID 02/29/24 02/29/24 History topical ointment cholecalciferol (vitamin D3) 25 25 mcg PO QPM 02/29/24 02/29/24 History mcg (1,000 unit) capsule levalbuterol tartrate 45 1 puff inhalation Q6H PRN Wheezing 02/29/24 02/29/24 History mcg/actuation aerosol inhaler pantoprazole 40 mg tablet,delayed 40 mg PO QAM 02/29/24 02/29/24 History release vitamin B complex 1 cap PO DAILY 02/29/24 02/29/24 History Past Med/Surg History Medical History GI bleed Anemia Atrial fibrillation History of blood transfusion History of COVID-19 History of pneumonia Sensorineural hearing loss (SNHL) of both ears Dementia associated with Parkinson's disease Primary parkinsonism GERD (gastroesophageal reflux disease) HTN (hypertension) Dyslipidemia CKD (chronic kidney disease) stage 3, GFR 30-59 ml/min Diabetes type 2, controlled CHI (closed head injury) Diastolic dysfunction Lower extremity edema HUNTER (iron deficiency anemia) Ambulatory dysfunction Seasonal allergies Moderate mitral regurgitation Thoracic aortic aneurysm Lumbar spondylosis MUSTAFA (dyspnea on exertion) Coronary aneurysm (2011) Adverse reaction to anesthetic agent Orthostatic hypotension (07/2019) Peripheral arterial disease Recurrent cellulitis of lower extremity Anxiety BPH (benign prostatic hyperplasia) CAD (coronary artery disease) Surgical History History of carpal tunnel release of both wrists History of esophagogastroduodenoscopy (EGD) Hx of colonoscopy Hx of bilateral cataract extraction History of neck surgery S/P wrist surgery S/P CABG (coronary artery bypass graft) (2011) S/P triple vessel bypass (2011) History of right hip replacement H/O foot surgery H/O eye surgery Family History Unknown No problems noted. Father Hypertension, Onset Age: 40 Mother Hypertension COPD (chronic obstructive pulmonary disease) Diabetes Brother Allergies Asthma Denies family history of Prostate cancer Hearing loss No family history of adverse response to anesthesia No family history of bleeding disorder Heart disease Cancer Stroke Social History Smoking Status: Never smoker Tobacco Type: Cigars Second Hand Exposure: No; Do You Dip or Chew Tobacco: No; Tobacco Cessation Education Requested by Patient: No Hx Alcohol Use: No Hx Substance Use: No Preferred Language: [place] Communication Ability: Effective Communication Ability Comment: Hard of hearing Inspecting Supervisor Required: No Beliefs That Will Affect Care: None marital status: Current Living Situation: Spouse Current Living Situation Comment: Lives at home with spouse Other Information That Helps Us Care for You: No Feels Safe at Home: Yes Safety Concerns: Feels Safe At This Time Assistive Devices: Walker Review of Systems Review of Systems: All systems reviewed & are unremarkable except as noted in HPI & below Physical Exam Physical Exam: General- Not in distress Head- atraumatic Eyes- PERRL. ENT- oropharynx clear Neck- supple, no JVD. Lungs- clear to auscultation no wheezing or crackles Heart- regular rhythm; no murmur, no gallop. Abdomen- normal bowel sounds, soft, nontender, no distension. Extremities- b/l lower extremity edema. RT >> Lt. superficial ulcer seen on right yang Neuro- alert, oriented . Hard of hearing; PERRL, no facial palsy; no dysarthria; moves extremities. Results & Data Results & Data Vital Signs (Past 12 Hours) Vital Signs Temp Pulse Pulse Resp BP BP Pulse Ox 02/29/24 19:17 36.8 C 77 21 135/82 96 02/29/24 19:02 36.7 C 78 20 144/84 H 02/29/24 19:00 78 23 96 02/29/24 18:44 36.7 C 72 18 133/72 95 02/29/24 18:30 80 17 96 02/29/24 18:00 79 19 93 02/29/24 17:30 71 94 02/29/24 17:00 78 22 96 02/29/24 16:30 81 21 93 02/29/24 16:06 81 02/29/24 16:04 77 23 96 02/29/24 16:03 94 02/29/24 16:03 71 18 133/72 95 02/29/24 15:18 36.5 C 85 20 136/65 97 O2 Del Method 02/29/24 19:17 02/29/24 19:02 02/29/24 19:00 02/29/24 18:44 02/29/24 18:30 02/29/24 18:00 02/29/24 17:30 02/29/24 17:00 02/29/24 16:30 02/29/24 16:06 02/29/24 16:04 02/29/24 16:03 Room Air 02/29/24 16:03 Room Air 02/29/24 15:18 Room Air Diagnostic Findings Laboratory Results WBC 3.91 K/ul (4.8-10.8) L 02/29/24 15:50 RBC 1.96 M/uL (4.70-6.10) L 02/29/24 15:50 Hgb 6.7 g/dl (14.0-18.0) L* 02/29/24 15:50 Hct 20.5 % (42.0-52.0) L* 02/29/24 15:50 MCV 104.6 fL (80.0-100.0) H 02/29/24 15:50 MCH 34.2 pg (25.0-34.0) H 02/29/24 15:50 MCHC 32.7 g/dL (32.0-36.0) 02/29/24 15:50 RDW Std Deviation 63.3 fL (36.4-46.3) H 02/29/24 15:50 RDW Coeff of Anny 16.9 % (11.5-14.5) H 02/29/24 15:50 Plt Count 159 K/uL (130-400) 02/29/24 15:50 MPV 9.5 fL (9.4-12.4) 02/29/24 15:50 PT 10.9 Seconds (9.0-12.0) 02/29/24 15:50 INR 1.0 (0.9-1.1) 02/29/24 15:50 APTT 23 Seconds (21-31) 02/29/24 15:50 PTT Ratio 0.9 02/29/24 15:50 Sodium 140 mmol/L (136-145) 02/29/24 15:50 Potassium 4.0 mmol/L (3.5-5.1) 02/29/24 15:50 Chloride 104 mmol/L (98-107) 02/29/24 15:50 Carbon Dioxide 28 mmol/L (21-32) 02/29/24 15:50 Anion Gap 8 (3-11) 02/29/24 15:50 BUN 48 mg/dl (6-23) H 02/29/24 15:50 Creatinine 2.04 mg/dl (0.6-1.4) H 02/29/24 15:50 Est Cr Clr Drug Dosing Not Reportable 02/29/24 15:50 Est GFR ( Amer) 34.9 ml/min 02/29/24 15:50 Est GFR (Non-Af Amer) 30.1 ml/min 02/29/24 15:50 BUN/Creatinine Ratio 23.5 (10-20) H 02/29/24 15:50 Glucose 266 mg/dl (70-99(Fasting)) H 02/29/24 15:50 Calcium 9.1 mg/dl (8.6-10.3) 02/29/24 15:50 Iron 63 mcg/dl (35-175) 02/29/24 15:50 TIBC 281 mcg/dl (250-450) 02/29/24 15:50 Unsaturated IBC 218 mcg/dl (155-355) 02/29/24 15:50 Transferrin % Sat 22 % (20-50) 02/29/24 15:50 Total Bilirubin 0.3 mg/dl (0.2-1.0) 02/29/24 15:50 AST 16 U/L (13-39) 02/29/24 15:50 ALT 13 U/L (7-52) 02/29/24 15:50 Alkaline Phosphatase 109 U/L (34-104) H 02/29/24 15:50 Troponin I High Sens 12.3 pg/ml (0-20) 02/29/24 15:50 Total Protein 5.6 gm/dl (6.0-8.3) L 02/29/24 15:50 Albumin 3.5 gm/dl (3.4-5.0) 02/29/24 15:50 Globulin 2.1 gm/dl (2.5-4.0) L 02/29/24 15:50 Albumin/Globulin Ratio 1.7 (0.9-2) 02/29/24 15:50 POC Stool Occult Blood Positive (Negative) A 02/29/24 18:27 Blood Type A Positive 02/29/24 15:50 Antibody Screen NEGATIVE 02/29/24 15:50 Crossmatch See Detail 02/29/24 15:50 Impressions Chest X-Ray 02/29/24 16:19 SINGLE VIEW CHEST CLINICAL HISTORY: Dyspnea FINDINGS: An AP, portable, upright chest radiograph is compared to study dated 10/06/2023. The examination is degraded by portable technique and apical lordotic positioning. The patient is status post midline sternotomy. The heart is enlarged noting atherosclerotic calcification of the thoracic aorta. The pulmonary vasculature is noncongested. Chronic interstitial thickening is similar to previous. There is bibasilar scarring/atelectasis. No airspace consolidation or large pleural effusion is identified. No pneumothorax is seen. The skeletal structures are osteopenic. There are chronic/healed left-sided rib fractures. Arthritic change is seen in the shoulders. IMPRESSION: Cardiomegaly with no acute cardiopulmonary abnormality identified. ACT 112: Negative or not required by law. Electronically signed by: Gonzales Alvarado M.D. 02/29/2024 4:41 PM ECG Additional Comments: ECG. Atrial fibrillation rate of 85. Left axis deviation. Incomplete right bundle branch block. Code Status & VTE Plan VTE Prophylaxis Plan VTE Prophylaxis will be ordered: Yes
[2024-02-29] MEDS ORDERED: DEXTROSE 50% 50 ML SYRINGE IV PRN (21:26)
[2024-02-29] MEDS ORDERED: GLUCAGON FOR INJ 1 MG VIAL SQ PRN (21:26)
[2024-02-29] MEDS ORDERED: CARBOHYDRATES FOR HYPOGLYCEMIA PO PRN (21:26)
[2024-02-29] MEDS ORDERED: NITROGLYCERIN SL 0.4 MG/TAB TAB SL PRN (21:26)
[2024-02-29] MEDS ORDERED: ACETAMINOPHEN 325 MG TAB PO PRN (21:26)
[2024-02-29] MEDS ORDERED: GLUCOSE 40% GEL 15 GM TUBE PO PRN (21:26)
[2024-02-29] MEDS ORDERED: GLUCOSE 10 TAB/TUBE PO PRN (21:26)
[2024-02-29] MEDS ORDERED: POLYETHYLENE (MIRALAX) 17 GM PACK PO PRN (21:26)
[2024-02-29] MEDS: INSULIN ASPART PER UNIT CHARGE SC SCH (21:50)
[2024-02-29] MEDS ORDERED: LEVALBUTEROL TARTRATE 15 GM HFA.AER.AD INH PRN (21:57)
[2024-02-29] MEDS: PANTOprazole 40 MG in DEXTROSE 5% MINI-B 100 ML IV SCH (22:00)
[2024-03-01] MEDS: SODIUM CHLORIDE 0.9% 1,000 ML IV SCH (00:56)
[2024-03-01 02:32] LABS: Hemoglobin 8.4 g/dl (14.0-18.0)
--- NOTE | 2024-03-01 02:42 | Ultrasound Report ---
Exam(s): US VENOUS RIGHT LOWER EXTREMITY EXAM: US Duplex Right Lower Extremity Veins CLINICAL HISTORY: Reason for exam: rt lower extremityedema. dvt?. TECHNIQUE: Real-time duplex ultrasound scan of the right lower extremity veins integrating B-mode two-dimensional vascular structure, Doppler spectral analysis, color flow Doppler imaging and compression. COMPARISON: 01/25/2023. FINDINGS: Deep veins: Unremarkable. No DVT in the visualized common femoral, femoral, proximal deep femoral or popliteal veins. The veins demonstrate normal color flow, are normally compressible, with normal phasic flow and/or augmentation response. Superficial veins: Unremarkable. No thrombus in the visualized great saphenous vein. Soft tissues: Nonspecific edema through the calf region. No popliteal cyst. IMPRESSION: No ultrasonographic evidence of deep venous thrombosis involving the right lower extremity. Electronically signed by: Geetha Staples MD 03/01/24 02:41 AM
[2024-03-01 05:53] LABS: Basophils # (auto) 0.02 K/uL (0.00-0.20); Basophils % (auto) 0.6 %; Eosinophils # (auto) 0.03 K/uL (0.00-0.50); Eosinophils % (auto) 0.9 %; Hematocrit (blood only) 24.5 % (42.0-52.0); Hemoglobin 8.2 g/dl (14.0-18.0); Immature Granulocytes # (auto) 0.07 K/uL (0.01-0.20); Lymphocytes # (auto) 0.74 K/uL (1.20-3.40); Lymphocytes % (auto) 21.4 %; Mean Corpuscular Hgb Conc 33.5 g/dL (32.0-36.0); Mean Corpuscular Volume 95.7 fL (80.0-100.0); Monocytes # (auto) 0.33 K/uL (0.11-0.59); Monocytes % (auto) 9.6 %; Neutrophils # (auto) 2.26 K/uL (1.40-6.50); Neutrophils % (auto) 65.5 %; Platelet Count 129 K/uL (130-400); RDW Coefficient of Variation 19.2 % (11.5-14.5); RDW Standard Deviation 65.1 fL (36.4-46.3); Red Blood Count 2.56 M/uL (4.70-6.10); White Blood Count 3.45 K/ul (4.8-10.8)
[2024-03-01 06:05] LABS: BUN Creatinine Ratio 21.5 (10-20); Calcium 8.5 mg/dl (8.6-10.3); Creatinine Clr Calc Pharmacy 34.6 ml/min; Est GFR (African American) 41.4 ml/min; Est GFR (Non-African American) 35.7 ml/min; Potassium 3.6 mmol/L (3.5-5.1)
--- OUTSIDE RECORDS SUMMARY | 2024-03-01 06:23 | External Medical Summary ---
Author Name Unknown Address Unknown Organization [id number] [place] [address] Laboratory Report Ordering Provider Test Date Status GUERRERO CHAUHAN 02/29/2024 11:11:57 Final Observation Date Value Abnormality Reference (Units ) Status SYNC LEUKOCYTES IN BLOOD BY AUTOMATED COUNT 02/29/2024 11:11:57 4.69 4.00-10.80 (K/uL) Final Segs 02/29/2024 11:11:57 68.0 40.0-75.0 (%) Final Lymphs % 02/29/2024 11:11:57 20.9 18.0-42.0 (%) Final Monos 02/29/2024 11:11:57 9.8 1.0-11.0 (%) Final Eosinophils 02/29/2024 11:11:57 0.9 0.0-6.0 (%) Final Basos 02/29/2024 11:11:57 0.4 0.0-2.0 (%) Final Absolute Segs 02/29/2024 11:11:57 3.19 1.80-7.70 (K/uL) Final Lymphs, absolute 02/29/2024 11:11:57 0.98 Below low normal 1.00-4.80 (K/ul) Final Monos, Abs 02/29/2024 11:11:57 0.46 0.00-1.10 (K/uL) Final Eos, Abs 02/29/2024 11:11:57 0.04 0.00-0.70 (K/uL) Final Basos, Abs 02/29/2024 11:11:57 0.02 0.00-0.20 (K/uL) Final Performing Location [facility] [place] [place] [id number]
--- OUTSIDE RECORDS SUMMARY | 2024-03-01 06:24 | External Medical Summary | Summary of Care ---
Author Name Unknown Organization [facility] Address [address] [place] [place] [place] [address] Phone [phone] Care Team Providers Care Operations Forester Name Role Phone Michael Hinton MD Primary Care Provider [phone] Reason for Visit * Reason Onset Date Comments [facility]: Maintenance 02/21/2024 Encounter Details Date Type Department Care Team (Late st Contact Info) Description 02/21/2024 10:15 AM EDT Scheduled Telephone [facility], [facility] [address] [facility] [place] [address] Coordinator, [facility] [address] [facility] [place] [address] Allergies Active Allergy Reactions Criticality Noted Date Comments Fabiano Inhibitors Cough 06/09/2017 Carbidopa W-Levodopa 03/17/2021 Constipation Nsaids Rash 05/17/2018 Contraindicated per backhoe operator documented as of this encounter (statuses as of 02/22/2024) Medications Medication Sig Dispensed Refills Start Date End Date Status Glucose Blood (ONETOUCH VERIO) STRPIndications:Ty pe 2 diabetes mellitus with hemoglobin A1c goal of less than 8.0% ([facility]) Use up to 4 times a day E11.9 400 Strip 3 08/29/2018 Active ONETOUCH DELICA LANCETS 33G MISCIndications:Ty pe 2 diabetes mellitus with hemoglobin A1c goal of less than 8.0% (HCC) Use up to 4 times a day 400 Each 3 08/29/2018 Active Acetaminophen 500 MG Oral Tablet Take [...] every evening. 30 Capsule 0 03/28/2023 Active Cephalexin 500 MG Oral Capsule Take 1 Capsule by mouth every evening. 30 Capsule 0 03/28/2023 Active Pantoprazole Sodium 40 MG Oral Tablet Delayed Release (Protonix) TAKE ONE TABLET BY MOUTH EVERY DAY 90 Tablet 3 04/15/2023 05/24/2024 Active Additional Information Patient taking differently: 40 mg Daily(AM), Reported on 11/30/2023 Metoprolol Succinate ER 25 MG Oral Tablet Extended Release 24 Hour (toPROL XL) TAKE ONE TABLET BY MOUTH EVERY MORNING 90 Tablet 3 03/21/2023 05/10/2024 Active Amantadine HCl 100 MG Oral Capsule (Symmetrel) TAKE ONE CAPSULE BY MOUTH EVERY DAY WITH LUNCH 90 Capsule 3 02/16/2023 03/23/2024 Active Donepezil HCl 10 MG Oral Tablet (Aricept) TAKE ONE TABLET BY MOUTH EVERY DAY IN THE EVENING 90 Tablet 3 02/16/2023 05/10/2024 Active DIURETIC TITRATION PLAN If no improvement on day 3, contact heart failure managing provider. 1 Each 0 05/02/2023 Active metFORMIN HCl ER 500 MG Oral Tablet Extended Release 24 Hour (Glucophage XR) Take 1 Tablet by mouth daily. 100 Tablet 3 06/23/2023 Active Dutasteride 0.5 MG Oral Capsule (Avodart) Take 1 Capsule by mouth in the morning. 90 Capsule 3 08/29/2023 Active buPROPion HCl ER (XL) 150 MG Oral Tablet Extended Release 24 Hour (Wellbutrin XL) Take 1 Tablet by mouth in the morning. 90 Tablet 3 10/13/2023 Active Atorvastatin Calcium 40 MG Oral Tablet (Lipitor)Indicatio ns:Dyslipidemia Take 1 Tablet by mouth in the morning. 90 Tablet 3 10/13/2023 Active Vitamin B Complex Oral Capsule Take 1 Capsule by mouth in the morning. 90 Capsule 0 10/13/2023 Active Betamethasone Dipropionate 0.05 % External OintmentIndication s:Inflamed seborrheic keratosis APPLY TO SKIN LESIONS AND SCALP LESIONS UP TO TWO TIMES A DAY FOR NO LONGER THAN 2 WEEKS AT A TIME FOR ITCH. (THEN TAKE A 2 WEEK BREAK) 45 g 2 11/06/2023 11/05/2024 Active Torsemide 20 MG Oral Tablet (Demadex)Indicatio ns:Nonrheumatic mitral valve regurgitation,Krista nary artery disease involving lummi coronary artery of lummi heart without angina pectoris,Paroxysma l atrial fibrillation (HCC),Stage 3b chronic kidney disease (HCC) Take 2 Tablets by mouth in the morning. 180 Tablet 3 01/15/2024 Active methylPREDNISolone 4 MG Oral Tablet Therapy Pack (Medrol Dosepack) Take as per instructions on package. 21 Each 0 01/23/2024 Active Levalbuterol Tartrate 45 MCG/ACT Inhalation Aerosol (Xopenex HFA)Indications:Pn eumonia of left lower lobe due to infectious organism Inhale 1 Puff by mouth every 6 hours as needed for Wheezing. Or coughing spells 15 g 12 01/23/2024 Active Spacer/Aero-Holdin g Chambers Device Use with inhaler. 1 Each 0 01/23/2024 Active Escitalopram Oxalate 20 MG Oral Tablet (Lexapro) take one tablet by mouth daily in the morning 90 Tablet 3 02/09/2024 Active documented as of this encounter (statuses as of 02/22/2024) Active Problems Problem Noted Date Diagnosed Date Stasis ulcer of right lower extremity 01/24/2024 Last Assessment & Plan: Aquacel ag and dsd Monitor closely for s/s of cellulitis Will place ref to assist with dressings Paroxysmal atrial fibrillation 07/19/2023 History of cellulitis 05/02/2023 Last Assessment & Plan: Continues daily cephalexin 500mg for prevention Chronic kidney disease, stage 3b 02/27/2023 Overview: Per CKD protocol Type 2 diabetes mellitus wit h stage 3b chronic kidney disease 02/27/2023 Overview: Per CKD protocol Last Assessment & Plan: "RED FLAG" Diabetic symptoms: Generalized Weakness Goal HgbA1c <8 Diabetic Complications Vascular (examples: PVD, PAD, CAD, CVA) Renal (example: CKD, Proteinuria, Dialysis) Medication Regimen Metformin DM Secondary Prevention Moderate-High Intensity Statin Additional Comments Hgba1x 04/12/23--6.1 Flexural atopic dermatitis 11/29/2022 Last Assessment & Plan: Continue Dupixent Atrial fibrillation 10/10/2022 Last Assessment & Plan: Rate controlled on metoprolol Not on anticoag due to anemia and bleeding risk Urge incontinence 08/24/2022 Overweight (BMI 25.0-29.9) 07/13/2022 Chronic diastolic heart fail ure secondary to coronary artery disease 07/13/2022 Hypertensive heart and kidne y disease with chronic diastolic congestive heart failure and stage 3b chronic kidney disease 05/16/2022 Last Assessment & Plan: "RED FLAG" HF Symptoms: Leg Swelling (Examples: "I can't wear certain socks or shoes", "My pants feel tight") Medication Regimen: Beta Sheldon Therapy: Metoprolol Succinate (ER) FABIANO Inhibitor/ARB Therapy: No FABIANO/ARB/ARNI secondary to: cough Diuretic therapy: Torsemide Self - Management Plan Double dose of Torsemide for 3 days Exacerbation Plan BMP Pro-BNP Additional Comments: On increased torsemide, 40mg daily since last week Continue to encourage leg elevation Low sodium diet Iron deficiency anemia 07/28/2021 Last Assessment & Plan: Followed closely by [facility] hematology. No identified cause of HUNTER. Weekly labs monitored by hem/onc. 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 Pt not on any AC. Will d/w team Dementia associated with Parkinson's disease Last Assessment & Plan: Continue aricept BPH with obstruction/lower urinary tract symptom s [...] knees 03/21/2018 Coronary artery disease invo lving lummi coronary artery of lummi heart without angina pectoris 03/21/2018 Last Assessment & Plan: Stable, Continue metoprolo, atorvastatin No ASA d/t history severe anemia--GI bleeding? Cervical spinal stenosis 08/18/2017 FABIANO (generalized anxiety disorder) 08/18/2017 Last Assessment & Plan: Symptoms stable -continue Lexapro Primary parkinsonism 08/18/2017 Last Assessment & Plan: -Continue amantadine Followed by Dr. Shannon Bowman via telemedicine every 6 months S/P CABG x 3 08/18/2017 FABIANO inhibitor intolerance 12/04/2015 Dyslipidemia 08/09/2002 Last Assessment & Plan: Discussed lipid panel from December--LDL 178--prior LDL from 01/11 99. reports they no longer have atorvastatin--med on list, thinks it ran out and did not kathy refilled. Med refilled and advised to restart. Lipid panel ordered for 3 months by mobile documented as of this encounter (statuses as of 02/22/2024) Resolved Problems Problem Noted Date Diagnosed Date Resolved Date Immunodeficiency 03/28/2023 01/24/2024 Last Assessment & Plan: Secondary to Dupixent Hematuria, gross 08/24/2022 10/11/2023 Viral upper respiratory tract infection 08/08/2022 11/29/2022 [...] DDD (degenerative disc disease), cervical 02/18/2021 04/27/2021 Recurrent cellulitis of lower extremity 02/18/2021 10/11/2023 Last Assessment & Plan: On prophylactic Keflex 500 mg daily Chronic kidney disease, stage 3a 02/01/2021 03/01/2023 [...] scanned document from 11/13/[address] [facility]. 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y [...] as of this encounter (statuses as of 02/22/2024) Immunizations Name Administration Dates Next Due COVID-19 mRNA, LNP-s, No Pre serve, 2-Dose Series (Pfizer) 11/03/2021,12/19/2020,11/28/2020 Covid-19 Ad26, Single Dose (Employee Benefit Plans/J&J) 12/19/2020,11/28/2020 DTaP Dipth/Tet/Acell Pertussis (Infanrix), Peds 10/24/2019 [...] encounter Miscellaneous Notes * Telephone Encounter - Kasey Lutz LPN - 02/22/2024 5:55 PM EDT See 02/21/2024 telephone encounter documented in this encounter Plan of Treatment Upcoming Encounters Date Type Department Care Team (Late st Contact Info) Description 02/26/2024 12:30 PM EDT Nurse Only Ancillary Bernadette Decker [place] [address] [facility] [place] [address] [facility] Nurse Annual Wellness [facility] [address] [place] [address] 02/29/2024 7:05 AM EDT Laboratory Lab Mobile Phlebotomy [facility] [address] [place] [address] Mv, [facility] Draw [address] [place] [address] 03/01/2024 4:00 PM EDT [facility] Visit [facility], [facility] [address] [place] [address] Peggy De RN [address] [place] [address] 03/11/2024 3:15 PM EDT Office Visit Urology, [facility] [address] [place] [address] Kalpesh Funes MD [address] [place] [address] 03/14/2024 7:05 AM EDT Laboratory Lab Mobile Phlebotomy [facility] [address] [place] [address] Mvmg, [facility] Home Draw [address] [facility] [place] [address] 03/22/2024 3:00 PM EDT Office Visit Nephrology, [facility] [address] [facility] [place], [place] [address] Nataly Stone PA-C [address] [facility] [place] [address] 03/28/2024 7:00 AM EDT Laboratory Lab Mobile Phlebotomy [facility] [address] [place] [address] Mvmg, [facility] Draw [address] [place] [address] 03/28/2024 3:00 PM EDT [facility] Visit [facility], [facility] [address] [place] [address] Berny Power PA-C [address] [place] [address] 04/11/2024 7:00 AM EDT Laboratory Lab Mobile Phlebotomy [facility] [address] [place] [address] Mvmg, Gml [facility] Home Draw [address] [place] [address] 04/24/2024 7:00 AM EDT Laboratory Lab Mobile Phlebotomy [facility] [address] [place] [address] Mvmg, Gml Mobile Home Draw [address] [place] [address] 05/09/2024 7:00 AM EDT Laboratory Lab Mobile Phlebotomy [facility] [address] [facility] [place] [address] Mvmg, Gml Mobile Home Draw [address] [facility] [place] [address] 05/23/2024 7:00 AM EDT Laboratory Lab Mobile Phlebotomy [facility] [address] [employer] [facility] [place] [address] Mvmg, Gml Mobile Home Draw [address] [facility] [place] [address] 06/06/2024 7:00 AM EDT Laboratory Lab Mobile Phlebotomy [facility] [address] [employer] [place] [address] Mvmg, Gml Mobile Home Draw [address] [facility] [place] [address] 06/20/2024 7:00 AM EDT Laboratory Lab Mobile Phlebotomy [facility] [address] [facility] [place] [address] Mvmg, Gml Mobile Home Draw [address] [place] [employer] [facility] [place] [address] 07/04/2024 7:00 AM EDT Laboratory Lab Mobile Phlebotomy [facility] [address] [facility] [place] [address] Mvmg, Gml Mobile Home Draw [address] [facility] [place] [address] 07/18/2024 7:00 AM EDT Laboratory Lab Mobile Phlebotomy [facility] [address] [facility] [place] [address] Mvmg, Gml Mobile Home Draw [address] [place] [employer] [facility] [place] [address] 08/01/2024 7:00 AM EDT Laboratory Lab Mobile Phlebotomy [facility] [address] [place] [address] Mvmg, Gml Mobile Home Draw [address] [place] [address] 08/15/2024 7:00 AM EDT Laboratory Lab Mobile Phlebotomy [facility] [address] [facility] [place] [address] Mvmg, Gml Mobile Home Draw [address] [facility] [place] [address] 08/29/2024 7:00 AM EST Laboratory Lab Mobile Phlebotomy [facility] [address] [facility] [place] [address] Mvmg, Gml Mobile Home Draw [address] [facility] [place] [address] 09/12/2024 7:00 AM EST Laboratory Lab Mobile Phlebotomy [facility] [address] [facility] [place] [address] Mvmg, Gml Mobile Home Draw [address] [facility] [place] [address] 09/26/2024 7:00 AM EST Laboratory Lab Mobile Phlebotomy [facility] [address] [place] [address] Mvmg, Gml Mobile Home Draw [address] [facility] [place] [address] Health Maintenance Due Date Last Done Comments Hepatitis C Screening 1963 Diabetic Foot Exam 03/27/2021 03/27/2020, 08/23/2018 COVID-19 Vaccine ( season) 2023 11/03/2021, 12/19/2020, 12/19/2020, Additional history exists HbA1c 10/12/2023 04/12/2023, 03/0 03/2023, 03/22/2022, Additional history exists Diabetic Eye Exam 11/01/2023 11/01/2022, , 11/01/2022, Additional history exists Depression Screening 11/02/2023 11/02/2022 GFR 11/04/2023 05/04/2023, 03/23, 03/16/2023, Additional history exists Albumin/Creatinine Ratio 12/27/2023 023, 03/08/2019, 04/09/2014 CKD PHOS USE SMARTSET 78900 12/07/202411/23, 12/26/2022, 06/21/2021 CKD HGB USE SMARTSET 73143 02/14/202502/14, 02/15/2024, 02/01/2024, Additional history exists Colonoscopy 10/18/2026 10/18/2023, 08/24, 07/10/2020, Additional history exists DTaP,Tdap,and Td Vaccines (4 [...] this encounter Medical Devices Implanted Type Area Optical Coating Technician Device Identifier Shelf Expiration Date Model / Serial / Lot Lens Intraoc 22.5 - [id number] - [id number] Implanted:Qty: 1 on 05/22/2018 by Jasbir Maurer MD at OR [facility] Right: Eye BAUSCH & LOMB 11/22/2022 [id number] / [id number] / [id number] Lens Intraoc 21.0 - [id number] - [id number] Implanted:Qty: 1 on 06/05/2018 by Jasbir Maurer MD at OR [facility] Left: Eye BAUSCH & LOMB 12/20/2022 [id number] / [id number] / documented as of this encounter Advance [...] Care Power of Attor mayela Care Teams Operations Forester Relationship Specialty Start Date End Date Michael Hinton MD [address] [place] [address] PCP - General Family Medicine 08/07/17 documented as of this encounter
--- OUTSIDE RECORDS SUMMARY | 2024-03-01 06:24 | External Medical Summary | Summary of Care ---
Author Name Unknown Organization [facility] Address [address] [place] [address] Phone [phone] Care Team Providers Care Cyber Defense Analyst Name Role Phone Michael Hinton MD Primary Care Provider [phone] Reason for Visit * Reason Onset Date Comments [facility]: Maintenance 02/22/2024 Encounter Details Date Type Department Care Team (Late st Contact Info) Description 02/22/2024 Telephone [facility], [facility] [address] [facility] [place] [address] [facility], Nurse [facility] [address] [facility] [place] [address] [facility]: Maintenance Allergies Active Allergy Reactions Criticality Noted Date Comments Fabiano Inhibitors Cough 06/09/2017 Carbidopa W-Levodopa 03/17/2021 Constipation Nsaids Rash 05/17/2018 Contraindicated per stem assembler documented as of this encounter (statuses as [...] mitral valve regurgitation,Krista nary artery disease involving nez perce coronary artery of nez perce heart without angina pectoris,Paroxysma l atrial fibrillation [...] knees 03/21/2018 Coronary artery disease invo lving nez perce coronary artery of nez perce heart without angina pectoris 03/21/2018 Last Assessment [...] scanned document from 11/13/[address] [facility]. 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y [...] Series (Pfizer) 11/03/2021,12/19/2020,11/28/2020 Covid-19 Ad26, Single Dose ([employer]/J&J) 12/19/2020,11/28/2020 DTaP Dipth/Tet/Acell Pertussis (Infanrix), Peds 10/24/2019 [...] Miscellaneous Notes * Telephone Encounter - Kasey LutzXAVIER - 02/22/2024 5:56 PM EDT [facility] Follow-Up Call [facility] Subprogram: Primary [facility] at Home Follow Up Call Type: Routine follow up call / Status Check Acute issue requiring follow-up call: Other: LE edema, DTP Objective: 02/06/2024 9:21 AM 01/24/2024 1:34 PM 01/23/2024 11:13 AM 01/15/2024 12:06 PM 12/04/2023 12:09 PM VITALS ACROSS ENCOUNTERS BP 118/64 135/60 128/62 104/62 148/68 Pulse 62 93 75 65 82 Weight 75.9 kg 76.9 kg 75.3 kg BMI 27.86 kg/m2 28.22 kg/m2 27.62 kg/m2 Remote Patient Monitoring: AMC Scale: inaccurate Oxygen Needs: NO supplemental oxygen needs identified DME Needs: NO DME needs identified Medications: Current DTP: Double dose of Torsemide for 3 days Ended 02/21/2024 Subjective: Condition Status: [facility] Current Concerns: Called pt no answer LMOM to return call Disposition: Routed to [facility] and/or [facility] Care Team for further advice Future Visits Scheduled: Future Appointments-next 60 days Date/Time Provider Specialty Dept Phone 02/26/2024 12:30 PM Jeronimo Nurse Annual Wellness Niru Ancillary [phone] 02/29/2024 7:05 AM M[facility], Gml Mobile Home Draw Laboratory Processing [phone] 03/01/2024 4:00 PM Peggy De RN [facility] [phone] 03/11/2024 3:15 PM Kalpesh Funes MD Urology [phone] 03/14/2024 7:05 AM Mv[facility], Gml Mobile Home Draw Laboratory Processing [phone] 03/22/2024 3:00 PM (Arrive by 2:45 PM) Nataly Stone PA-C Nephrology [phone] 03/28/2024 7:00 AM M[facility], Gml Mobile Home Draw Laboratory Processing [phone] 03/28/2024 3:00 PM Berny Power PA-C [facility] [phone] 04/11/2024 7:00 AM Mv[facility], Gml Mobile Home Draw Laboratory Processing [phone] 04/24/2024 7:00 AM Mvmg, Gml Mobile Home Draw Laboratory Processing [phone] 05/09/2024 7:00 AM Mvmg, Gml Mobile Home Draw Laboratory Processing [phone] 05/23/2024 7:00 AM Mvmg, Gml [facility] Home Draw Laboratory Processing [phone] 06/06/2024 7:00 AM Mv[facility], Gml Mobile Home Draw Laboratory Processing [phone] 06/20/2024 7:00 AM M[facility], G[facility] Mobile Home Draw Laboratory Processing [phone] 07/04/2024 7:00 AM Mv[facility], Gml Mobile Home Draw Laboratory Processing [phone] 07/18/2024 7:00 AM Mv[facility], G[facility] Mobile Home Draw Laboratory Processing [phone] 08/01/2024 7:00 AM Mv[facility], Gml Mobile Home Draw Laboratory Processing [phone] 08/15/2024 7:00 AM Mv[facility], Gml Mobile Home Draw Laboratory Processing [phone] 08/29/2024 7:00 AM Mvmg, Gml Mobile Home Draw Laboratory Processing [phone] 09/12/2024 7:00 AM Mv[facility], Gml Mobile Home Draw Laboratory Processing [phone] 09/26/2024 7:00 AM Mv[facility], Gml Mobile Home Draw Laboratory Processing [phone] Kasey Lutz LPN documented in this encounter Plan of Treatment Upcoming Encounters Date Type Department Care Team (Late st Contact Info) Description 02/26/2024 12:30 PM EDT Nurse Only Ancillary [facility] [address] [facility] [place] [address] [facility], Nurse Annual [facility] [address] [facility] [place] [address] 02/29/2024 7:05 AM EDT Laboratory Lab Mobile Phlebotomy [facility] [address] [facility] [place] [address] Mvmg, Gml Mobile Home Draw [address] [facility] [place] [address] 03/01/2024 4:00 PM EDT [facility] Visit [facility], [facility] [address] [facility] [place] [address] Peggy De, RN [address] [facility] [place] [address] 03/11/2024 3:15 PM EDT Office Visit Urology, [facility] [address] [facility] [place] [address] Kalpesh Funes MD [address] [place] [address] 03/14/2024 7:05 AM EDT Laboratory Lab Mobile Phlebotomy [facility] [address] [facility] [place] [address] Mvmg, Gml Mobile Home Draw [address] [place] [address] 03/22/2024 3:00 PM EDT Office Visit Nephrology, [facility] [address] [place], [place] [address] Nataly Stone PA-C [address] [facility] [place], [place] [address] 03/28/2024 7:00 AM EDT Laboratory Lab Mobile Phlebotomy [facility] [address] [place] [address] [address] Mvmg, Gml Mobile Home Draw [address] [facility] [place] [address] 03/28/2024 3:00 PM EDT [facility] [address] [place] [address] Berny Power PA-C [address] [place] [address] 04/11/2024 7:00 AM EDT Laboratory Lab Mobile Phlebotomy [facility] [address] [place] [address] [address] Mvmg, Gml Mobile Home Draw [address] [facility] [place] [address] 04/24/2024 7:00 AM EDT Laboratory Lab Mobile Phlebotomy [facility] [address] [place] [address] [address] Mvmg, Gml Mobile Home Draw [address], [place] [address] 05/09/2024 7:00 AM EDT Laboratory Lab Mobile Phlebotomy [facility] [address] [place] [address] [address] Mvmg, Gml Mobile Home Draw [address] [place] [address] 05/23/2024 7:00 AM EDT Laboratory Lab Mobile Phlebotomy [facility] [address] [place] [address] Mvmg, Gml Mobile Home Draw [address] [place] [address] 06/06/2024 7:00 AM EDT Laboratory Lab Mobile Phlebotomy [facility] [address] [place] [address] Mvmg, Gml Mobile Home Draw [address] [place] [address] 06/20/2024 7:00 AM EDT Laboratory Lab Mobile Phlebotomy [facility] [address] [place] [address] Mvmg, Gml Mobile Home Draw [address] [place] [address] 07/04/2024 7:00 AM EDT Laboratory Lab Mobile Phlebotomy [facility] [address] [employer] [address] Mvmg, Gml Mobile Home Draw [address] [place] [address] 07/18/2024 7:00 AM EDT Laboratory Lab Mobile Phlebotomy [facility] [address] [place] [address] Mvmg, Gml Mobile Home Draw [address] [place] [address] 08/01/2024 7:00 AM EDT Laboratory Lab Mobile Phlebotomy [facility] [address] [place] [address] Mvmg, Gml Mobile Home Draw [address] [place] [address] 08/15/2024 7:00 AM EDT Laboratory Lab Mobile Phlebotomy [facility] [address] [place] [address] Mvmg, Gml Mobile Home Draw [address] [place] [address] 08/29/2024 7:00 AM EST Laboratory Lab Mobile Phlebotomy [facility] [address] [place] [address] Mvmg, Gml Mobile Home Draw [address] [place] [address] 09/12/2024 7:00 AM EST Laboratory Lab Mobile Phlebotomy [facility] [address] [place] [address] Mvmg, Gml Mobile Home Draw [address] [place] [address] 09/26/2024 7:00 AM EST Laboratory Lab Mobile Phlebotomy [facility] [address] [place] [address] Mvmg, Gml Mobile Home Draw [address] [facility] [place], [place] [address] Health Maintenance Due Date Last Done Comments [...] 023, 03/08/2019, 04/09/2014 CKD PHOS USE SMARTSET 35304 12/07/202411/23, 12/26/2022, 06/21/2021 CKD HGB USE SMARTSET 32137 02/14/202502/14, 02/15/2024, 02/01/2024, Additional history exists Colonoscopy [...] this encounter Medical Devices Implanted Type Area Docent Coordinator Device Identifier Shelf Expiration Date Model / Serial / Lot Lens Intraoc 22.5 - [id number] - [id number] Implanted:Qty: 1 on 05/22/2018 by Jasbir Maurer MD at OR [facility] Right: Eye BAUSCH & LOMB 11/22/2022 [id number] / [id number] / [id number] Lens Intraoc 21.0 - [id number] - [id number] Implanted:Qty: 1 on 06/05/2018 by Jasbir Maurer MD at OR [facility] Left: Eye BAUSCH & LOMB 12/20/2022 [id number] / [id number] / documented as of this encounter Advance [...] Agents on File Name Relationship Healthcare Agent [facility] Danny Jose Spouse Health Care Power of Attor mayela Care Teams Cyber Defense Analyst Relationship Specialty Start Date End Date Michael Hinton MD [address] [place] [address] PCP - General Family Medicine 08/07/17 documented as of this encounter
--- OUTSIDE RECORDS SUMMARY | 2024-03-01 06:24 | External Medical Summary ---
Author Name UNSPECIFIED Address Unknown Organization [facility] History of Encounters Reason for Assessment: Start of care - f urther visits planned Inpatient discharge facility: Past 14 Da ys: Discharged from [facility] Most Recent Inpatient Discharge Date: Functional Assessment Patient Living Situation: Patient lives with other person(s) in the home: Around the clock When Dyspneic: With moderate exerti on (e.g., while dressing, using commode or bedpan, walking distances less than 20 feet) Bowel Incontinence Frequency: Very rarel y or never has bowel incontinence Cognitive Functioning: Requires promptin g (cueing, repetition, reminders) only under stressful or unfamiliar conditions. When Confused (Reported or Observed): Du ring the day and evening, but not constantly When Anxious (Reported or Observed): Les s often than daily Cognitive and Behavioral and Psychiatric Symptoms: Impaired decision-making: failure to perform usual ADLs or IADLs, inability to appropriately stop activities, jeopardizes safety through actions Cognitive and Behavioral and Psychiatric Symptoms: Memory deficit: failure to recognize familiar persons/places, inability to recall events of past 24 hours, significant memory loss so that supervision is required Frequency of Behavior Problems: Less julita n once a month Current Ability: Bathing: able to partic ipate in bathing self in shower or tub, but requires presence of another person throughout the bath for assistance or supervision. Current Ability: Ambulation: Requires us e of a two-handed device (e.g., walker or crutches) to walk alone on a level surface and/or requires human supervision or assistance to negotiate stairs or steps or uneven surfaces. 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
--- OUTSIDE RECORDS SUMMARY | 2024-03-01 06:24 | External Medical Summary ---
Author Name Unknown Address Unknown Organization K09[facility] [address] Laboratory Report Ordering Provider Test Date Status GUERRERO CHAUHAN 02/29/2024 11:11:57 Final Observation Date Value Abnormality Reference (Units ) Status Nucleated erythrocytes/100 leukocytes [Ratio] in Blood by Automated count 02/29/2024 11:11:57 Final Performing Location [facility] [address]
--- OUTSIDE RECORDS SUMMARY | 2024-03-01 06:24 | External Medical Summary | Summary of Care ---
Author Name Unknown Organization [facility] Address [address] [place] [address] Phone [phone] Care Team Providers Care Ceramic Worker Name Role Phone Michael Hinton MD Primary Care Provider [phone] Reason for Visit * Reason Onset Date Comments Appointment 02/26/2024 Encounter Details Date Type Department Care Team (Late st Contact Info) Description 02/26/2024 Telephone Care at Home [address] [place] [address] Services, Scheduling [address] [place] [address] Appointment Allergies Active Allergy Reactions Criticality Noted Date Comments Fabiano Inhibitors Cough 06/09/2017 Carbidopa W-Levodopa 03/17/2021 Constipation Nsaids Rash 05/17/2018 Contraindicated per microwave supervisor documented as of this encounter (statuses as of 02/26/2024) Medications Medication Sig Dispensed Refills Start Date End Date Status Glucose Blood (ONETOUCH VERIO) STRPIndications:Ty pe 2 diabetes mellitus with hemoglobin A1c goal of less than 8.0% ([facility]) Use up to 4 times a [...] mitral valve regurgitation,Krista nary artery disease involving [place] coronary artery of [place] heart without angina pectoris,Paroxysma l atrial fibrillation [...] as of this encounter (statuses as of 02/26/2024) Active Problems Problem Noted Date Diagnosed Date Stasis ulcer of right lower extremity 01/24/2024 Last Assessment & Plan: Aquacel ag and dsd Monitor closely for s/s of cellulitis Will place HH ref to assist with dressings Paroxysmal atrial [...] knees 03/21/2018 Coronary artery disease invo lving [place] coronary artery of [place] heart without angina pectoris 03/21/2018 Last Assessment [...] as of this encounter (statuses as of 02/26/2024) Resolved Problems Problem Noted Date Diagnosed Date [...] scanned document from 11/13/[address] bains, [facility] [place]. 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y [...] as of this encounter (statuses as of 02/26/2024) Immunizations Name Administration Dates Next Due COVID-19 [...] encounter Miscellaneous Notes * Telephone Encounter - Heather Amado OSA - 02/26/2024 10:56 AM EDT [facility] Outreach Call attempt: 1st Call Call result: Call Successful - Patient enrolled and agreed to visit. Appointment with: Betina Jacob PA-C Visit Date: 03/06/24 Visit Time: 1230pm with spouse Heather L LARRY Amado documented in this encounter Plan of Treatment Upcoming Encounters Date Type Department Care Team (Late st Contact Info) Description 02/29/2024 7:05 AM EDT Laboratory [facility] [address] [place] [address] [facility] [address] [place] [address] 03/01/2024 4:00 PM EDT Home Visit [facility]inger at [facility] [address] [place] [address] [address] Peggy De, RN [address] [place] [address] 03/06/2024 12:30 PM EDT Home Visit Care at Home [address] [place] [address] Betina Jacob PA-C [address] [place] [facility] [place] [address] 03/11/2024 3:15 PM EDT Office Visit Urology, [facility] 132 [facility] [place] [address] Kalpesh Funes MD [address] [facility] [place] [address] [place] [address] 03/14/2024 7:05 AM EDT Laboratory [facility] [address] [place] [address] [facility], [facility] Draw [address] [place] [address] 03/22/2024 3:00 PM EDT Office Visit Nephrology, [facility] 200 [facility] [place] [address] ZeNataly bailey PA-C 200 [facility] [place] [address] 03/28/2024 7:00 AM EDT Laboratory [facility] [address] [place] [address] [facility], [facility] Draw [address] [place] [address] 03/28/2024 3:00 PM EDT [facility], [facility] [address] [place] [address] Berny Power PA-C [address] [place] [address] 04/11/2024 7:00 AM EDT Laboratory [facility] Ph[facility]bot[facility] [address] [place] [address] [facility], [facility] Draw [address] [employer] [place] [address] 04/24/2024 7:00 AM EDT Laboratory [facility] [address] [facility] [place] [address] M[facility], [facility] Draw [address] [facility] [place] [address] 05/09/2024 7:00 AM EDT Laboratory [facility]le[facility] [address] [facility] [place] [address] M[facility], [facility] Draw [address] [place] [address] 05/23/2024 7:00 AM EDT Laboratory [facility] [address] [facility] [place] [address] M[facility], [facility] Draw [address] [place] [address] 06/06/2024 7:00 AM EDT Laboratory [facility] [address] [place] [address] M[facility], Gml [facility] Home Draw [address] [place] [address] 06/20/2024 7:00 AM EDT Laboratory [facility] [address] [place] [address] M[facility], [facility] Draw [address] [facility] [place] [address] 07/04/2024 7:00 AM EDT Laboratory [facility] [address] [place] [address] M[facility], Gml [facility] Draw [address] [place] [address] 07/18/2024 7:00 AM EDT Laboratory [facility] [address] [facility] [place] [address] M[facility], [facility] Draw [address] [facility] [place] [address] 08/01/2024 7:00 AM EDT Laboratory [facility] [address] [place] [address] [facility], [facility] Draw [address] [place] [address] 08/15/2024 7:00 AM EDT Laboratory [facility] [address] [facility] [place] [address] M[facility], [facility] Draw [address] [place] [address] 08/29/2024 7:00 AM EST Laboratory [facility] [address] [facility] [place] [address] M[facility], [facility] Draw [address] [facility] [place] [address] 09/12/2024 7:00 AM EST Laboratory [facility] [address] [place] [address] M[facility], [facility] Draw [address] [place] [address] 09/26/2024 7:00 AM EST Laboratory [facility] [address] [place] [address] [facility] Draw [address] [place] [address] Health Maintenance Due Date Last Done Comments [...] 023, 03/08/2019, 04/09/2014 CKD PHOS USE SMARTSET 60991 12/07/202411/23, 12/26/2022, 06/21/2021 CKD HGB USE SMARTSET 83376 02/14/202502/14, 02/15/2024, 02/01/2024, Additional history exists Colonoscopy [...] this encounter Medical Devices Implanted Type Area Medical Detail Representative Device Identifier Shelf Expiration Date Model / Serial / Lot Lens Intraoc 22.5 - [id number] - [id number] Implanted:Qty: 1 on 05/22/2018 by Jasbir Maurer MD at [facility] Right: Eye [employer] 11/22/2022 [id number] / [id number] / [id number] Lens Intraoc 21.0 - [id number] - [id number] Implanted:Qty: 1 on 06/05/2018 by Jasbir Maurer MD at [facility] Left: Eye BA[employer]CH [employer]OMB 12/20/2022 [id number] / [id number] / documented as of this encounter Advance [...] Jose Spouse Health Care Power of Attor [place] Care Teams Ceramic Worker Relationship Specialty Start Date End Date Michael Hinton MD [address] [place] [address] PCP - General Family Medicine 08/07/17 documented as of this encounter
--- OUTSIDE RECORDS SUMMARY | 2024-03-01 06:24 | External Medical Summary | Summary of Care ---
Author Name Unknown Organization [facility] Address [address] [place] [address] Phone [phone] Care Team Providers Care Flush Tester Name Role Phone Michael Hinton MD Primary Care Provider [phone] Reason for Visit * Reason Onset Date Comments [facility]: Maintenance 02/20/2024 Encounter Details Date Type Department Care Team (Late st Contact Info) Description 02/20/2024 11:00 AM EDT Scheduled Telephone [facility], [facility] 132 [facility] [place] [address] Coordinator, [facility] [address] [facility] [place] [address] Allergies Active Allergy Reactions Criticality Noted Date Comments Fabiano Inhibitors Cough 06/09/2017 Carbidopa W-Levodopa 03/17/2021 Constipation Nsaids Rash 05/17/2018 Contraindicated per counsellors documented as of this encounter (statuses as of 02/20/2024) Medications Medication Sig Dispensed Refills Start Date End Date Status Glucose Blood (ONETOUCH VERIO) STRPIndications:Ty pe 2 diabetes mellitus with hemoglobin A1c goal of less than 8.0% ([facility]) Use up to 4 times [...] mitral valve regurgitation,Krista nary artery disease involving [place] coronary artery of [place] heart without angina pectoris,Paroxysma l atrial fibrillation [...] as of this encounter (statuses as of 02/20/2024) Active Problems Problem Noted Date Diagnosed Date [...] knees 03/21/2018 Coronary artery disease invo lving [place] coronary artery of [place] heart without angina pectoris 03/21/2018 Last Assessment [...] as of this encounter (statuses as of 02/20/2024) Resolved Problems Problem Noted Date Diagnosed Date [...] scanned document from 11/13/[address] bains [facility] [place]. 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y [...] as of this encounter (statuses as of 02/20/2024) Immunizations Name Administration Dates Next Due COVID-19 mRNA, LNP-s, No Pre serve, 2-Dose Series (Pfizer) 11/03/2021,12/19/2020,11/28/2020 Covid-19 Ad26, Single Dose ([employer]J) 12/19/2020,11/28/2020 DTaP Dipth/Tet/Acell Pertussis (Infanrix), Peds 10/24/2019 [...] Telephone Encounter - Vicky Garcia RN - 02/20/2024 11:46 AM EDT [facility] Telephonic Nurse Follow-Up Call [facility] Subprogram: Primary Care at Home Follow Up Call Type: 24 hour follow up Acute issue requiring follow-up call: Other: LE edema, DTP started Objective: 02/06/2024 9:21 AM 01/24/2024 1:34 PM 01/23/2024 11:13 AM 01/15/2024 12:06 PM 12/04/2023 12:09 PM VITALS ACROSS ENCOUNTERS BP 118/64 135/60 128/62 104/62 148/68 Pulse 62 93 75 65 82 Weight 75.9 kg 76.9 kg 75.3 kg BMI 27.86 kg/m2 28.22 kg/m2 27.62 kg/m2 Remote Patient Monitoring: AMC Scale: 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 Oxygen Needs: NO supplemental oxygen needs identified DME Needs: NO DME needs identified Medications: Current DTP: Double dose of Torsemide for 3 days, started 02/18 Subjective: Condition Status: No change in symptoms Current Concerns: Per spouse, urine output increased, but leg swelling is about the same Advised to continue the 2 additional days of doubling Torsemide, keep legs elevated to hip level When wound nurse there tomorrow, have her take photo of wounds on leg and email to us, she can callwhen there and ready to send Disposition: Follow up call scheduled for tomorrow with XAVIER TafoyaPhotograph Mounter Future Visits Scheduled: Future Appointments-next 60 days Date/Time Provider Specialty Dept Phone 02/21/2024 10:15 AM CoordinatorSnehal [facility] [phone] 02/26/2024 12:30 PM Nurse Jeronimo [facility] Ancillary [phone] 02/29/2024 7:05 AM [facility] Laboratory Processing [phone] 03/01/2024 4:00 PM Peggy De RN [facility] [phone] 03/11/2024 3:15 PM Kalpesh Funes MD Urology [phone] 03/14/2024 7:05 AM [facility] Laboratory Processing [phone] 03/22/2024 3:00 PM (Arrive by 2:45 PM) Nataly Stone PA-C Nephrology [phone] 03/28/2024 7:00 AM [facility] Laboratory Processing [phone] 03/28/2024 3:00 PM Berny Power PA-C [facility] [phone] 04/11/2024 7:00 AM [facility] Laboratory Processing [phone] 04/24/2024 7:00 AM [facility] Laboratory Processing [phone] 05/09/2024 7:00 AM [facility] Laboratory Processing [phone] 05/23/2024 7:00 AM [facility] Laboratory Processing [phone] 06/06/2024 7:00 AM [facility] Laboratory Processing [phone] 06/20/2024 7:00 AM [facility] Laboratory Processing [phone] 07/04/2024 7:00 AM [facility] Laboratory Processing [phone] 07/18/2024 7:00 AM [facility] Laboratory Processing [phone] 08/01/2024 7:00 AM [facility] Laboratory Processing [phone] 08/15/2024 7:00 AM [facility] Laboratory Processing [phone] 08/29/2024 7:00 AM [facility] Laboratory Processing [phone] 09/12/2024 7:00 AM [facility] Laboratory Processing [phone] 09/26/2024 7:00 AM [facility] Laboratory Processing [phone] Vicky Garcia, RN documented in this encounter Plan of Treatment Upcoming Encounters Date Type Department Care Team (Late st Contact Info) Description 02/21/2024 10:15 AM EDT Scheduled Telephone [facility] 132 [facility] [place] [address] Coordinator, [facility] [address] [place] [address] 02/26/2024 12:30 PM EDT Nurse Only Ancillary Cristobalraik [facility] [address] [place] [address] Decker, Nurse [facility] [address] [place] [address] 02/29/2024 7:05 AM EDT Laboratory [facility] [address] [place] [address] [facility], [facility] Draw [address] [employer] [address] [place] [address] 03/01/2024 4:00 PM EDT Home Visit [facility], [facility] [address] [place] [address] Peggy De, RN [address] [place] [address] 03/11/2024 3:15 PM EDT Office Visit Urology, [facility] 132 [facility] [place] [address] Kalpesh Funes MD [address] [place] [address] 03/14/2024 7:05 AM EDT Laboratory [facility] [address] [facility] [place] [address] [facility] Draw [facility] [place] [address] 03/22/2024 3:00 PM EDT Office Visit Nephrology, [facility] 200 [facility], [place] [address] Nataly Stone PA-C 200 [facility], [place] [address] 03/28/2024 7:00 AM EDT Laboratory [facility] [address] [facility] [place] [address] [facility], [facility] Draw [address] [facility], [place] [address] 03/28/2024 3:00 PM EDT Home Visit [facility], [facility] [address] [place] [address] Berny Power PA-C [address] [place] [address] 04/11/2024 7:00 AM EDT Laboratory Lab [facility] Phlebot[facility] [address] [place] [place] [address] M[facility], [facility] Draw [address] [facility] [place] [address] 04/24/2024 7:00 AM EDT Laboratory Lab [facility] Phlebotomy [facility] [address] [facility] [place] [address] [facility], [facility] Home Draw [address] [facility] [place] [address] 05/09/2024 7:00 AM EDT Laboratory Lab [facility] Phlebot[facility] [address] [facility] [place] [address] [facility], [facility] Draw [address] [facility] [place] [address] 05/23/2024 7:00 AM EDT Laboratory [facility]bot[facility] [address] [facility] [place] [address] [facility], [facility] Home Draw [address] [facility] [place] [address] 06/06/2024 7:00 AM EDT Laboratory Lab [facility] Phlebot[facility] [address] [facility] [place] [address] [facility], [facility] Home Draw [address] [facility] [place] [address] 06/20/2024 7:00 AM EDT Laboratory Lab [facility] Phlebot[facility] [address] [facility] [place] [address] M[facility], G[facility] Home Draw [address] [facility] [place] [address] 07/04/2024 7:00 AM EDT Laboratory Lab [facility] Phlebotomy [facility] [address] [facility] [place] [address] M[facility], Gml Mobile Home Draw [address] [facility] [place] [address] 07/18/2024 7:00 AM EDT Laboratory Lab [facility] Phlebotomy [facility] [address] [facility] [place] [address] M[facility], Gml Mobile Home Draw [address] [facility] [place] [address] 08/01/2024 7:00 AM EDT Laboratory Lab [facility] Phlebotomy [facility] [address] [facility] [place] [address] M[facility], Gml Mobile Home Draw [address] [facility] [place] [address] 08/15/2024 7:00 AM EDT Laboratory Lab [facility] Phlebotomy [facility] [address] [facility] [place] [address] M[facility], Gml [facility] Home Draw [address] [facility] [place] [address] 08/29/2024 7:00 AM EST Laboratory Lab [facility] Phlebot[facility] [address] [facility] [place] [address] M[facility], Gml [facility] Home Draw [address] [facility] [place] [address] 09/12/2024 7:00 AM EST Laboratory Lab [facility] Phlebotomy [facility] [address] [facility] [place] [address] [facility], [facility]ml [facility] Home Draw [address] [facility] [place] [address] 09/26/2024 7:00 AM EST Laboratory [facility] [address] [facility] [place] [address] [facility], [facility] Draw [address] [facility] [place] [address] Health Maintenance Due Date Last Done Comments [...] 023, 03/08/2019, 04/09/2014 CKD PHOS USE SMARTSET 89374 12/07/202411/23, 12/26/2022, 06/21/2021 CKD HGB USE SMARTSET 95977 02/14/202502/14, 02/15/2024, 02/01/2024, Additional history exists Colonoscopy [...] this encounter Medical Devices Implanted Type Area Technical Project Manager Device Identifier Shelf Expiration Date Model / Serial / Lot Lens Intraoc 22.5 - [id number] - [id number] Implanted:Qty: 1 on 05/22/2018 by Jasbir Maurer MD at [facility] Right: Eye [employer] 11/22/2022 [id number] / [id number] / [id number] Lens Intraoc 21.0 - [id number] - [id number] Implanted:Qty: 1 on 06/05/2018 by Jasbir Maurer MD at [facility] Left: Eye [employer]OMB 12/20/2022 [id number] / [id number] / documented as of this encounter Advance [...] Agents on File Name Relationship [facility] Ashley Jose Spouse Health Care Power of Attor [place]ela Care Teams Flush Tester Relationship Specialty Start Date End Date Michael Hinton MD [address] [place] [address] PCP - General Family Medicine 08/07/17 documented as of this encounter
--- OUTSIDE RECORDS SUMMARY | 2024-03-01 06:24 | External Medical Summary ---
Author Name Unknown Address Unknown Organization K09:[facility] [place] [address] Laboratory Report Ordering Provider Test Date Status GUERRERO CHAUHAN 02/29/2024 11:11:57 Final Observation Date Value Abnormality Reference (Units ) Status WBC, Total 02/29/2024 11:11:57 4.69 4.00-10.8 0 (K/uL) Final RBC 02/29/2024 11:11:57 2.04 4.50-5.25 (M/uL) Final Hemoglobin 02/29/2024 11:11:57 6.9 Below low normal 14 .0-16.8 (g/dL) Final HCT 02/29/2024 11:11:57 22.2 Below low normal 40. 0-48.4 (%) Final MCV 02/29/2024 11:11:57 108.8 82.0-99.5 (fL) Final MCH 02/29/2024 11:11:57 33.8 27.0-34.0 (pg) Final MCHC 02/29/2024 11:11:57 31.1 32.0-36.0 (g/dL) Final RDW 02/29/2024 11:11:57 17.1 11.5-15.5 (%) Final Platelets 02/29/2024 11:11:57 193 140-400 (K /uL) Final MPV 02/29/2024 11:11:57 9.4 6.6-11.1 ( fL) Final Performing Location [facility] [place] [address]
--- OUTSIDE RECORDS SUMMARY | 2024-03-01 06:24 | External Medical Summary | Summary of Care ---
Author Name Unknown Organization [facility] Address [address] [place] [place] [address] Phone [phone] Care Team Providers Care Sludge Filtration Attendant Name Role Phone Michael Hinton MD Primary Care Provider [phone] Reason for Visit * Reason Onset Date Comments [facility]: Maintenance 02/21/2024 Encounter Details Date Type Department Care Team (Late st Contact Info) Description 02/21/2024 Telephone [facility], [facility] [address] [facility] [place] [address] [facility], Nurse [address] [place] [address] [facility]: Maintenance Allergies Active Allergy Reactions Criticality Noted Date Comments Fabiano Inhibitors Cough 06/09/2017 Carbidopa W-Levodopa 03/17/2021 Constipation Nsaids Rash 05/17/2018 Contraindicated per transmitter engineer in charge documented as of this encounter (statuses as of 02/21/2024) Medications Medication Sig Dispensed Refills Start Date End Date Status Glucose Blood (ONETOUCH VERIO) STRPIndications:Ty pe 2 diabetes mellitus with hemoglobin A1c goal of less than 8.0% ([facility]) Use up to 4 times [...] mitral valve regurgitation,Krista nary artery disease involving [place] coronary artery of [place] heart without angina pectoris,Paroxysma l atrial fibrillation [...] as of this encounter (statuses as of 02/21/2024) Active Problems Problem Noted Date Diagnosed Date [...] Last Assessment & Plan: Followed closely by [facility] hematology. No identified cause of HUNTER. [...] knees 03/21/2018 Coronary artery disease invo lving [place] coronary artery of [place] heart without angina pectoris 03/21/2018 Last Assessment [...] as of this encounter (statuses as of 02/21/2024) Resolved Problems Problem Noted Date Diagnosed Date [...] scanned document from 11/13/[address] [facility] 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y [...] as of this encounter (statuses as of 02/21/2024) Immunizations Name Administration Dates Next Due COVID-19 mRNA, LNP-s, No Pre serve, 2-Dose Series (Pfizer) 11/03/2021,12/19/2020,11/28/2020 Covid-19 Ad26, Single Dose ([employer]/J[employer]) 12/19/2020,11/28/2020 DTaP Dipth/Tet/Acell Pertussis (Infanrix), Peds 10/24/2019 [...] Telephone Encounter - Radha Corcoran RN - 02/21/2024 11:22 AM EDT Images from the original note were not included. PC received from nurse Annetta with an update on pt. LE edema has decreased and pt has 1+edema, which is improvement. Wound looks improved. No redness surrounding the open area. Drainage is yellow fluid but Annetta feels overall there is improvement in the condition of the leg. Radha Corcoran RN [facility] Intake Triage Coordinator [phone] documented in this encounter Plan of Treatment Upcoming Encounters Date Type Department Care Team (Late st Contact Info) Description 02/26/2024 12:30 PM EDT Nurse Only Ancillary Bernadette De[place] [address] [facility] [place] [address] De[place], Nurse Annual Well[facility] [address] [facility] [place] [address] 02/29/2024 7:05 AM EDT Laboratory Lab Mobile Phlebotomy [facility] [address] [facility] [place] [address] [facility], [facility] [address] [facility] [place] [address] 03/01/2024 4:00 PM EDT Home Visit [facility], [facility] [address] [facility] [place] [address] Peggy De RN 132 [facility] [place] [address] 03/11/2024 3:15 PM EDT Office Visit Urology, [facility] [address] [facility] [place] [address] Kalpesh Funes MD [address] [place], [place] [address] [address] 03/14/2024 7:05 AM EDT Laboratory Lab Mobile Phlebotomy [facility] [address] [facility] [place] [address] [facility], G[facility] Home Draw [facility] [facility] [place] [address] 03/22/2024 3:00 PM EDT Office Visit Nephrology, [facility] [place] [address] ZeNataly bailey PA-C [address] [place] [address] 03/28/2024 7:00 AM EDT Laboratory Lab [facility] Phlebotomy [facility] [address] [facility] [place] [address] M[facility], Gml [facility] Draw [address] [facility] [place] [address] 03/28/2024 3:00 PM EDT Home Visit [facility], [facility] [address] [facility] [place] [address] Berny Power PA-C [address] [place] [address] 04/11/2024 7:00 AM EDT Laboratory Lab Mobile Phlebotomy [facility] [address] [place], [place] [address] [facility], [facility] Draw [address] [place], [place] [address] 04/24/2024 7:00 AM EDT Laboratory Lab Mobile Phlebotomy [facility] [address] [facility] [place], [place] [address] [facility], Gml [facility] Draw [address] [place] [address] 05/09/2024 7:00 AM EDT Laboratory Lab Mobile Phlebotomy [facility] [address] [place] [address] M[facility], Gml [facility] Draw [address] [place] [address] 05/23/2024 7:00 AM EDT Laboratory Lab Mobile Phlebotomy [facility] [address] [place], [place] [address] [facility], [facility] Draw [address] [place] [address] 06/06/2024 7:00 AM EDT Laboratory Lab Mobile Phlebotomy [facility] [address] [place], [place] [address] [facility], Gml [facility] Draw [address] [place] [address] 06/20/2024 7:00 AM EDT Laboratory Lab Mobile Phlebotomy [facility] [address] [place], [place] [address] Mv[facility], Gml [facility] Draw [address] [place], [place] [address] 07/04/2024 7:00 AM EDT Laboratory Lab [facility] Phlebotomy [facility] [address] [place], [place] [address] M[facility], Gml [facility] Draw [address] [place] [address] 07/18/2024 7:00 AM EDT Laboratory Lab Mobile Phlebotomy [facility] [address] [place] [address] Mv[facility], Gml [facility] Draw [address] [facility] [place] [address] 08/01/2024 7:00 AM EDT Laboratory Lab Mobile Phlebotomy [facility] [address] [facility] [place] [address] Mvmg, Gml [facility] Draw [address] [facility] [place] [address] 08/15/2024 7:00 AM EDT Laboratory Lab Mobile Phlebotomy [facility] [address] [place] [address] [facility], Gml [facility] Draw [address] [place] [address] 08/29/2024 7:00 AM EST Laboratory Lab Mobile Phlebotomy [facility] [address] [facility] [place] [address] Mvmg, Gml Mobile Home Draw [address] [facility] [place] [place] [address] 09/12/2024 7:00 AM EST Laboratory Lab Mobile Phlebotomy [facility] [address] [place] [address] Mvmg, Gml [facility] Home Draw [address] [facility] [place] [address] 09/26/2024 7:00 AM EST Laboratory Lab Mobile Phlebotomy [facility] [address] [facility] [place] [address] Mv[facility], Gml Mobile Home Draw [address] [facility] [place] [address] Health Maintenance Due Date Last Done Comments [...] 023, 03/08/2019, 04/09/2014 CKD PHOS USE SMARTSET 35032 12/07/202411/23, 12/26/2022, 06/21/2021 CKD HGB USE SMARTSET 32409 02/14/202502/14, 02/15/2024, 02/01/2024, Additional history exists Colonoscopy [...] this encounter Medical Devices Implanted Type Area Book Sewer Device Identifier Shelf Expiration Date Model / Serial / Lot Lens Intraoc 22.5 - [id number] - [id number] Implanted:Qty: 1 on 05/22/2018 by Jasbir Maurer MD at [facility] Right: Eye [employer] 11/22/2022 [id number] / [id number] / [id number] Lens Intraoc 21.0 - [id number] - [id number] Implanted:Qty: 1 on 06/05/2018 by Jasbir Maurer MD at OR [facility] Left: Eye [employer] 12/20/2022 [id number] / [id number] / documented as of this encounter Advance [...] on File Name Relationship Healthcare Agent [facility] Communication Ashley Jose Spouse Health Care Power of Attor jackson Care Teams Sludge Filtration Attendant Relationship Specialty Start Date End Date Michael Hinton MD [address] [place] [address] PCP - General Family Medicine 08/07/17 documented as of this encounter
--- OUTSIDE RECORDS SUMMARY | 2024-03-01 06:25 | External Medical Summary ---
Author Name Unknown Address Unknown Organization [id number]:[facility] [place] [address] [place] [address] [place] [address] Laboratory Report Ordering Provider Test Date Status GUERRERO CHAUHAN 02/15/2024 10:16:00 Final Observation Date Value Abnormality Reference (Units ) Status Ferritin 02/15/2024 10:16:00 351 30-400 (ng /mL) Final Performing Location [facility] [place] [address] [place] [address]
--- OUTSIDE RECORDS SUMMARY | 2024-03-01 06:25 | External Medical Summary ---
Author Name Unknown Address Unknown Organization K[facility] [address] [place] [address] Laboratory Report Ordering Provider Test Date Status GUERRERO CHAUHAN 02/15/2024 10:16:00 Final Observation Date Value Abnormality Reference (Units ) Status Nucleated erythrocytes/100 leukocytes [Ratio] in Blood by Automated count 02/15/2024 10:16:00 Final [facility]forming Location [facility] - [address] [place] [address]
--- OUTSIDE RECORDS SUMMARY | 2024-03-01 06:25 | External Medical Summary | Summary of Care ---
Author Name Unknown Organization [facility] [address] [facility] [address] Phone [phone] Care Team Providers Care Slitting Machine Feeder Name Role Phone Michael Hinton MD Primary Care Provider [phone] Reason for Visit * Reason Onset Date Comments [facility]: Acute 02/19/2024 Encounter Details Date Type Department Care Team (Late st Contact Info) Description 02/19/2024 Telephone [facility], [facility] [address] [facility] [place] [address] [facility], Nurse [facility] [address] [facility] [place] [address] [facility]: Acute Allergies Active Allergy Reactions Criticality Noted Date Comments Fabiano Inhibitors Cough 06/09/2017 Carbidopa W-Levodopa 03/17/2021 Constipation Nsaids Rash 05/17/2018 Contraindicated per agricultural extension agent documented as of this encounter (statuses as of 02/19/2024) Medications Medication Sig Dispensed Refills Start Date End Date Status Glucose Blood (ONETOUCH VERIO) STRPIndications:Ty pe 2 diabetes mellitus with hemoglobin A1c goal of less than 8.0% ([facility]) Use up to 4 times a [...] mitral valve regurgitation,Krista nary artery disease involving [place] coronary artery of [place] heart without angina pectoris,Paroxysma l atrial fibrillation [...] as of this encounter (statuses as of 02/19/2024) Active Problems Problem Noted Date Diagnosed Date [...] knees 03/21/2018 Coronary artery disease invo lving tununak coronary artery of tunun[place] heart without angina pectoris 03/21/2018 Last Assessment [...] as of this encounter (statuses as of 02/19/2024) Resolved Problems Problem Noted Date Diagnosed Date [...] scanned document from 11/13/[address] [facility]. 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y [...] as of this encounter (statuses as of 02/19/2024) Immunizations Name Administration Dates Next Due COVID-19 mRNA, LNP-s, No Pre serve, 2-Dose Series (Techpoint) 11/03/2021,12/19/2020,11/28/2020 Covid-19 Ad26, Single Dose (SquareTrade/J&J) 12/19/2020,11/28/2020 DTaP Dipth/Tet/Acell Pertussis (Infanrix), Peds 10/24/2019 [...] Telephone Encounter - Vicky Garcia RN - 02/19/2024 11:45 AM EDT Phone call to patient, went to voice mail Message left advising [facility] order to start his DTP of doubling Torsemide x 3 days, start today by taking extra (2) 20 meq tablets, then (4) 20 meq on and Mon [facility] [phone] # provided for questions Ashley Garcia RN, BSN [facility] Intake Triage Coordinator [phone] * Telephone Encounter - Michael Briggs DO - 02/19/2024 11:37 AM EDT [facility] Subprogram: Primary Care at Home Recommendations: I would begin DTP with reported LE edema and new wound In regards to wound swab - I would advise them to transmit a pic to us when they are there Monday to determine if it's warranted as the appearance may change with decreased edema Orders: No orders of the defined types were placed in this encounter. To Do: Please see below for follow up items to be completed and correspondence: NA to Jesus's Care Team warehouse person Pool please work on the following: contact the caller with advice and orders as above Michael Briggs, [facility] - [facility] 02/19/2024 Scheduled appointments in the next 60 days: Future Appointments-next 60 days Date/Time Provider Specialty Dept Phone 02/20/2024 11:00 AM Coordinator, José Miguel Giuliano Tafoya [facility] [phone] 02/21/2024 10:15 AM Coordinator, [facility] [phone] 02/26/2024 12:30 PM Jeronimo Nurse Annual Wellness N[facility] Ancillary [phone] 02/29/2024 7:05 AM [facility] Laboratory Processing [phone] 03/01/2024 4:00 PM Peggy De RN [facility] [phone] 03/11/2024 3:15 PM Kalpesh Funes MD Urology [phone] 03/14/2024 7:05 AM [facility] Processing [phone] 03/14/2024 3:00 PM Berny Power PA-C [facility] [phone] 03/22/2024 3:00 PM (Arrive by 2:45 PM) Nataly Stone PA-C Nephrology [phone] 03/28/2024 7:00 AM [facility] Processing [phone] 04/11/2024 7:00 AM [facility] Processing [phone] 04/24/2024 7:00 AM [facility] Processing [phone] 05/09/2024 7:00 AM [facility] Processing [phone] 05/23/2024 7:00 AM [facility] Processing [phone] 06/06/2024 7:00 AM [facility] Processing [phone] 06/20/2024 7:00 AM [facility] Processing [phone] 07/04/2024 7:00 AM [facility] Processing [phone] 07/18/2024 7:00 AM [facility] Processing [phone] 08/01/2024 7:00 AM [facility] Processing [phone] 08/15/2024 7:00 AM [facility] Processing [id number] 08/29/2024 7:00 AM [facility] Laboratory Processing [phone] 09/12/2024 7:00 AM [facility] Processing [phone] 09/26/2024 7:00 AM [facility] Laboratory Processing [phone] * Telephone Encounter - Vicky Garcia RN - 02/19/2024 11:20 AM EDT Images from the original note were not included. [facility] warehouse person Acute Call Date: 02/19/2024 Time: 11:20 AM Name: Jesus Jose : 1945 Caller: Aline Riggins Home Health Nurse Relationship to Chief Complaint Patient presents with [facility]: Acute HPI: Jesus Jose is a 78 year old male whose home health nurse is calling [facility] Intake to report they come in 3x/week to do dressing changes on RLE. Today, found wound being treated is looking good, but now has a new wound right below it, on front Rt yang. Measures 1 x 0.6 x 0.1 inches,base of wound is yellow She applied the ordered Aquacel AG and Dry Dressing to both wounds She already re-wrapped the leg due to being on hold with [facility], she will have a photo taken at Monday dressing change visit and will call [facility] with an update No Fever LE's do have +2 edema Both legs are red, and warm Rt > Lt.. No SOB Pt does weigh daily, but due to Parkinson's, weights are all over, they do not believe they are accurate Advised patient would call back with orders/recommendation, including possible need to start DTP HH nurse also asked if wound swab wanted , can be done at next dressing change Monday, 02/20 ROS: Patient Active Problem List Diagnosis Code Dyslipidemia E78.5 FABIANO inhibitor intolerance Z78.9 Cervical spinal stenosis M48.02 FABIANO (generalized anxiety disorder) F41.1 Primary parkinsonism ([facility]) G20.C S/P CABG x 3 Z95.1 Primary osteoarthritis of both knees M17.0 Coronary artery disease involving [place] coronary artery of [place] heart without angina pectoris I25.10 HTN, goal below 130/80 I10 Type 2 diabetes mellitus with hemoglobin A1c goal of less than 8.0% ([facility]) 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, 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, 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 Type 2 diabetes mellitus with diabetic peripheral angiopathy without gangrene ([facility]) E11.51 Gastro-esophageal reflux disease without esophagitis K21.9 Iron deficiency anemia D50.9 Hypertensive 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) I13.0, I50.32, N18.32 Overweight (BMI 25.0-29.9) E66.3 Chronic diastolic 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 (HCC) I50.32, I25.10 Urge incontinence N39.41 Atrial fibrillation (HCC) I48.91 Flexural atopic dermatitis L20.89 Chronic kidney disease, stage 3b (HCC) N18.32 Type 2 diabetes mellitus with stage 3b chronic kidney disease (HCC) E11.22, N18.32 History of cellulitis Z87.2 Paroxysmal atrial fibrillation (HCC) I48.0 Stasis ulcer of right lower extremity (HCC) I83.019, L97.096 Nursing Assessment: Patient's chief complaint for this call: Integumentary Pain Denies pain Baseline Assessment Able to performing ADLs at baseline (walking, daily tasks, etc.): Yes Chief Complaint is related to a chronic condition: No Patient prescribed oxygen? No Patient has been ordered DME equipment (assistive devices, respiratory equipment, etc.): No Medication Reconciliation: Received flu shot this season: Yes Taking medication as ordered: Yes Medications ordered/taking to treat reason for call: No Heart failure symptoms: Yes Is Diuretic Titration Protocol (DTP) ordered? Yes Describe Diuretic Titration Protocol (DTP): Double Torsemide x 3 days Diuretic Titration Protocol (DTP) activated: NO, pending recommendation of [facility] due to inconsistent weights , no SOB COPD exacerbation symptoms: No Reinforcement Education: Keep legs elevated to hip level when seated. Take all meds as ordered Avoid added salt, choose low sodium food Remain within any fluid restriction given Will route to [facility] for recommendations/orders Follow up calls set Treatment/Plan: Level of call: Acute Appointment scheduled for same day: No Provider Name: ABIOLA Garcia RN, BSN [facility] Intake Triage Coordinator [phone] Call back instructions provided to patient. documented in this encounter Plan of Treatment Upcoming Encounters Date Type Department Care Team (Late st Contact Info) Description 02/20/2024 11:00 AM EDT Scheduled Telephone [facility] [address] [place] [address] Coordinator, [place] [address] [address] [place] [address] 02/21/2024 10:15 AM EDT Scheduled Telephone [facility] [place] [address] [place] [address] Coordinator, [address] [place] [address] 02/26/2024 12:30 PM EDT Nurse Only Ancillary [facility] [address] [facility] [place] [address] [facility] [address] [facility] [place] [address] 02/29/2024 7:05 AM EDT Laboratory Lab Mobile Phlebotomy [facility] [address] [facility] [place] [address] [facility] Draw [address] [facility] [place] [address] 03/01/2024 4:00 PM EDT Home Visit [facility], [facility] [address] [facility] [place] [address] Peggy De RN [address] [facility] [place] [address] 03/11/2024 3:15 PM EDT Office Visit Urology, [facility] [address] [facility] [place] [address] Kalpesh Funes MD [address] [place] [address] [place] [address] 03/14/2024 7:05 AM EDT Laboratory Lab Mobile Phlebotomy [facility] [address] [facility] [place] [address] [facility] Draw [address] [facility] [place] [address] 03/14/2024 3:00 PM EDT Home Visit [facility] [address] [facility] [place] [address] Berny Power PA-C [address] [facility] [place] [address] 03/22/2024 3:00 PM EDT Office Visit Nephrology, Melissa La [address] [place] [address] ZeNataly bailey PAKittyC [address] [place] [address] 03/28/2024 7:00 AM EDT Laboratory Lab Mobile Phlebotomy [facility] [address] [place] [address] [facility] Draw [address] [place] [address] 04/11/2024 7:00 AM EDT Laboratory Lab Mobile Phlebotomy [facility] [address] [place] [address] [facility] Draw [address] [place] [address] 04/24/2024 7:00 AM EDT Laboratory Lab Mobile Phlebotomy [facility] [address] [place] [address] [facility] Draw [address] [place] [address] 05/09/2024 7:00 AM EDT Laboratory Lab Mobile Phlebotomy [facility] [address] [place] [address] [facility] Draw [address] [place] [address] 05/23/2024 7:00 AM EDT Laboratory Lab Mobile Phlebotomy [facility] [address] [place] [address] [facility] Draw [address] [place] [address] 06/06/2024 7:00 AM EDT Laboratory Lab Mobile Phlebotomy [facility] [address] [place] [address] [facility] Draw [address] [place] [address] 06/20/2024 7:00 AM EDT Laboratory Lab Mobile Phlebotomy [facility] [address] [place] [address] [facility] Draw [address] [place] [address] 07/04/2024 7:00 AM EDT Laboratory Lab Mobile Phlebotomy [facility] [address] [place] [address] [facility] Draw [address] [place] [address] 07/18/2024 7:00 AM EDT Laboratory Lab Mobile Phlebotomy [facility] [address] [place] [address] [facility] Draw [address] [facility] [place] [address] 08/01/2024 7:00 AM EDT Laboratory Lab Mobile Phlebotomy [facility] [address] [facility] [place] [address] [facility] Draw [address] [facility] [place] [address] 08/15/2024 7:00 AM EDT Laboratory Lab Mobile Phlebotomy [facility] [address] [place] [address] [facility] Draw [address] [facility] [place] [address] 08/29/2024 7:00 AM EST Laboratory Lab Mobile Phlebotomy [facility] [address] [place] [address] [facility] Draw [address] [facility] [place] [address] 09/12/2024 7:00 AM EST Laboratory Lab Mobile Phlebotomy [facility] [address] [address] [facility] Draw [address] [facility] [place] [address] 09/26/2024 7:00 AM EST Laboratory Lab Mobile Phlebotomy [facility] [address] [place] [address] [facility] Draw [address] [facility] [place] [address] Health Maintenance Due Date Last Done Comments [...] 023, 03/08/2019, 04/09/2014 CKD PHOS USE SMARTSET 10184 12/07/202411/23, 12/26/2022, 06/21/2021 CKD HGB USE SMARTSET 31476 02/14/202502/14, 02/15/2024, 02/01/2024, Additional history exists Colonoscopy [...] this encounter Medical Devices Implanted Type Area Electrical Project Engineer Device Identifier Shelf Expiration Date Model / Serial / Lot Lens Intraoc 22.5 - [id number] - [id number] Implanted:Qty: 1 on 05/22/2018 by Jasbir Maruer MD at [facility] Right: Eye [employer] 11/22/2022 [id number] / [id number] / [id number] Lens Intraoc 21.0 - [id number] - [id number] Implanted:Qty: 1 on 06/05/2018 by Jasbir Maurer MD at OR [facility] Left: Eye [employer] 12/20/2022 [id number] / [id number] / documented as of this encounter Advance [...] Care Power of Attor mayela Care Teams Slitting Machine Feeder Relationship Specialty Start Date End Date Michael Hinton MD [address] [place] [address] PCP - General Family Medicine 08/07/17 documented as of this encounter
--- OUTSIDE RECORDS SUMMARY | 2024-03-01 06:25 | External Medical Summary | Summary of Care ---
Author Name Unknown Organization [facility] Address [address] [address] Phone [phone] Care Team Providers Care Crude Oil Driver Name Role Phone Michael Hinton MD Primary Care Provider [phone] Reason for Visit * Reason Onset Date Comments [facility]: Acute 02/19/2024 Encounter Details Date Type Department Care Team (Late st Contact Info) Description 02/19/2024 Telephone [facility], [facility] [address] [facility] [place] [address] [facility], Nurse [facility] [address] [facility] [place] [address] [facility]: Acute Allergies Active Allergy Reactions Criticality Noted Date Comments Fabiano Inhibitors Cough 06/09/2017 Carbidopa W-Levodopa 03/17/2021 Constipation Nsaids Rash 05/17/2018 Contraindicated per repairer handtools documented as of this encounter (statuses as [...] mitral valve regurgitation,Krista nary artery disease involving [place] coronary artery of [place] heart without angina pectoris,Paroxysma l atrial fibrillation [...] Last Assessment & Plan: Followed closely by [facility] hematology. No identified cause of HUNTER. [...] knees 03/21/2018 Coronary artery disease invo lving [place] coronary artery of [place] heart without angina pectoris 03/21/2018 Last Assessment [...] scanned document from 11/13/[address] [facility]. 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y [...] mRNA, LNP-s, No Pre serve, 2-Dose Series (Smartmarket) 11/03/2021,12/19/2020,11/28/2020 Covid-19 Ad26, Single Dose (Vision Source/J&J) 12/19/2020,11/28/2020 DTaP Dipth/Tet/Acell Pertussis (Infanrix), Peds 10/24/2019 [...] Miscellaneous Notes * Telephone Encounter - Michael Briggs DO - 02/19/2024 11:37 AM EDT [facility] Eugenio Camacho Subprogram: Primary Care at Home Recommendations: I [...] and correspondence: NA to Jesus's Care Team government contracts manager Pool please work on the following: contact the caller with advice and orders as above Michael Briggs DO [facility] - [facility] 02/19/2024 Scheduled appointments in the next 60 days: Future Appointments-next 60 days Date/Time Provider Specialty Dept Phone 02/20/2024 11:00 AM CoordinatorSnehal [facility] [phone] 02/21/2024 10:15 AM Coordinator [facility] [phone] 02/26/2024 12:30 PM Jeronimo, Nurse [facility] [phone] 02/29/2024 7:05 AM [facility] Processing [phone] 03/01/2024 4:00 PM Peggy De RN [facility] [phone] 03/11/2024 3:15 PM Kalpesh Funes MD Urology [phone] 03/14/2024 7:05 AM [facility] Processing [phone] 03/14/2024 3:00 PM Berny Power PA-C [facility] [phone] 03/22/2024 3:00 PM (Arrive by 2:45 PM) Nataly Stone PA-C Nephrology [phone] 03/28/2024 7:00 AM [facility] Processing [phone] 04/11/2024 7:00 AM [facility] Processing [phone] 04/24/2024 7:00 AM [facility] Processing [phone] 05/09/2024 7:00 AM [facility] Processing [phone] 05/23/2024 7:00 AM [facility] Processing [phone] 06/06/2024 7:00 AM [facility] Processing [phone] 06/20/2024 7:00 AM [facility] Processing [phone] 07/04/2024 7:00 AM [facility] Processing [phone] 07/18/2024 7:00 AM [facility] Processing [phone] 08/01/2024 7:00 AM [facility] Processing [phone] 08/15/2024 7:00 AM [facility] Processing [phone] 08/29/2024 7:00 AM [facility] Processing [phone] 09/12/2024 7:00 AM [facility] Processing [phone] 09/26/2024 7:00 AM [facility] Processing [phone] * Telephone Encounter - Vicky Garcia, KARLA - 02/19/2024 11:20 AM EDT Images from the original note were not included. [facility] government contracts manager Acute Call Date: 02/19/2024 Time: 11:20 AM Name: Jesus Jose : 1945 Caller: Aline Riggins Home Health Nurse Relationship to Chief Complaint Patient presents with [facility]: Acute HPI: Jesus Jose is [...] leg due to being on hold with [facility], she will have a photo taken at Monday dressing change visit and will call [facility] with an update No Fever LE's do have +2 edema Both legs are red, and warm Rt > Lt.. No SOB Pt does weigh daily, but due to Parkinson's, weights are all over, they do not believe they are accurate Advised patient would call back with orders/recommendation, including possible need to start DTP nurse also asked if wound swab wanted , can be done at next dressing change Monday, 02/20 ROS: Patient Active Problem List Diagnosis Code Dyslipidemia E78.5 FABIANO inhibitor intolerance Z78.9 Cervical spinal stenosis M48.02 FABIANO (generalized anxiety disorder) F41.1 Primary parkinsonism (HCC) G20.C S/P CABG x 3 Z95.1 Primary osteoarthritis of both knees M17.0 Coronary artery disease involving [place] coronary artery of [place] heart without angina pectoris I25.10 HTN, goal [...] I48.0 Stasis ulcer of right lower extremity ([facility]) I83.019, L97.919 Nursing Assessment: Patient's chief complaint for this [...] any fluid restriction given Will route to [facility] for recommendations/orders Follow up calls set Treatment/Plan: Level of call: Acute Appointment scheduled for same day: No Provider Name: ABIOLA Garcia, RN, BSN [facility] Intake Triage Coordinator [phone] Call back instructions provided to patient. documented in this encounter Plan of Treatment Upcoming Encounters Date Type Department Care Team (Late st Contact Info) Description 02/20/2024 11:00 AM EDT Scheduled Telephone [facility] [place], [address] [place] [address] Coordinator, [place] [address] [facility] [place] [address] 02/21/2024 10:15 AM EDT Scheduled Telephone [facility] [place] [address] [place] [address] Coordinator, [facility] [address] [facility] [place] [address] 02/26/2024 12:30 PM EDT Nurse Only Ancillary Jain'arik Decker [place] [address] [place] [address] [facility], Nurse Annual Wellness [facility] [address] [place] [address] 02/29/2024 7:05 AM EDT Laboratory Lab Mobile Phlebotomy [facility] [address] [place] [address] [facility] Draw [address] [facility] [place] [address] 03/01/2024 4:00 PM EDT Home Visit [facility] [address] [facility] [place] [address] Peggy De, RN [address] [facility] [place] [address] 03/11/2024 3:15 PM EDT Office Visit Urology, [facility] [address] [facility] [place] [address] Kalpesh Funes MD [facility] [address] [facility] [place] [address] 03/14/2024 7:05 AM EDT Laboratory [facility] Phlebot[facility] [address] [place] [address] [facility] Draw [address] [place] [address] 03/14/2024 3:00 PM EDT Home Visit [facility] [address] [facility] [place] [address] Berny Power PA-C [address] [facility] [place] [place] [address] 03/22/2024 3:00 PM EDT Office Visit Nephrology, [facility] [address] [facility] [place] [address] ZeNataly bailey PA-C [address] [facility] [place] [address] 03/28/2024 7:00 AM EDT Laboratory [facility] Phlebotomy [facility] [address] [place] [address] [facility] Draw [address] [place] [address] 04/11/2024 7:00 AM EDT Laboratory Lab [facility] Phlebotomy [facility] [address] [place] [address] [facility] Draw [address] [place] [address] 04/24/2024 7:00 AM EDT Laboratory Lab Mobile Phlebotomy [facility] [address] [facility] [place] [address] [facility] Draw [address] [facility] [place] [address] 05/09/2024 7:00 AM EDT Laboratory Lab Mobile Phlebotomy [facility] [address] [facility] [place] [address] [facility] Draw [address] [facility] [place] [address] 05/23/2024 7:00 AM EDT Laboratory Lab Mobile Phlebotomy [facility] [address] [facility] [place] [address] [facility] Draw [address] [facility] [place] [address] 06/06/2024 7:00 AM EDT Laboratory Lab Mobile Phlebotomy [facility] [address] [place] [address] [facility] Draw [address] [facility] [place] [address] 06/20/2024 7:00 AM EDT Laboratory Lab Mobile Phlebotomy [facility] [address] [facility] [place] [address] [facility] Draw [address] [facility] [place] [address] 07/04/2024 7:00 AM EDT Laboratory Lab Mobile Phlebotomy [facility] [address] [place] [address] [facility] Draw [address] [facility] [place] [address] 07/18/2024 7:00 AM EDT Laboratory Lab Mobile Phlebotomy [facility] [address] [facility] [place] [address] [facility] Draw [address] [facility] [place] [address] 08/01/2024 7:00 AM EDT Laboratory Lab Mobile Phlebotomy [facility] [address] [place] [address] [facility] Draw [address] [facility] [place] [address] 08/15/2024 7:00 AM EDT Laboratory Lab Mobile Phlebotomy [facility] [address] [facility] [place] [address] [facility] Draw [address] [place] [address] 08/29/2024 7:00 AM EST Laboratory Lab [facility] Phlebotomy [facility] [address] [facility] [place] [address] [facility] Draw [address] [facility] [place] [address] 09/12/2024 7:00 AM EST Laboratory [facility] Phlebot[facility] [address] [place] [address] [facility] Draw [address] [place] [address] 09/26/2024 7:00 AM EST Laboratory [facility] Phlebotomy [facility] [address] [place] [address] [facility] Draw [address] [place] [address] Health Maintenance Due Date Last Done Comments [...] 023, 03/08/2019, 04/09/2014 CKD PHOS USE SMARTSET 34636 12/07/202411/23, 12/26/2022, 06/21/2021 CKD HGB USE SMARTSET 62870 02/14/202502/14, 02/15/2024, 02/01/2024, Additional history exists Colonoscopy [...] this encounter Medical Devices Implanted Type Area Manipulator Operator Device Identifier Shelf Expiration Date Model / Serial / Lot Lens Intraoc 22.5 - [id number] - [id number] Implanted:Qty: 1 on 05/22/2018 by Jasbir Maurer MD at OR [facility] Right: Eye [employer] 11/22/2022 [id number] / [id number] / [id number] Lens Intraoc 21.0 - [id number] - [id number] Implanted:Qty: 1 on 06/05/2018 by Jasbir Maurer MD at OR [facility] Left: Eye [employer] 12/20/2022 [id number] / [id number] / documented as of this encounter Advance [...] Jose Spouse Health Care Power of Attor [place] Care Teams Crude Oil Driver Relationship Specialty Start Date End Date Michael Hinton MD [address] [place] [address] PCP - General Family Medicine 08/07/17 documented as of this encounter
--- OUTSIDE RECORDS SUMMARY | 2024-03-01 06:25 | External Medical Summary ---
Author Name Unknown Address Unknown Organization K[facility] [place] [address] Laboratory Report Ordering Provider Test Date Status GUERRERO CHAUHAN 02/15/2024 10:16:00 Final Observation Date Value Abnormality Reference (Units ) Status SYNC LEUKOCYTES IN BLOOD BY AUTOMATED COUNT 02/15/2024 10:16:00 4.22 4.00-10.80 (K/uL) Final Segs 02/15/2024 10:16:00 69.4 40.0-75.0 (%) Final Lymphs % 02/15/2024 10:16:00 19.2 18.0-42.0 (%) Final Monos 02/15/2024 10:16:00 10.0 1.0-11.0 (%) Final Eosinophils 02/15/2024 10:16:00 0.9 0.0-6.0 (%) Final Basos 02/15/2024 10:16:00 0.5 0.0-2.0 (%) Final Absolute Segs 02/15/2024 10:16:00 2.93 1.80-7.70 (K/uL) Final Lymphs, absolute 02/15/2024 10:16:00 0.81 Below low normal 1.00-4.80 (K/ul) Final Monos, Abs 02/15/2024 10:16:00 0.42 0.00-1.10 (K/uL) Final Eos, Abs 02/15/2024 10:16:00 0.04 0.00-0.70 (K/uL) Final Basos, Abs 02/15/2024 10:16:00 0.02 0.00-0.20 (K/uL) Final Performing Location [facility] [place] [address]
--- OUTSIDE RECORDS SUMMARY | 2024-03-01 06:25 | External Medical Summary | Summary of Care ---
Author Name Unknown Organization [facility] Address [address] [facility] [address] Phone [phone] Care Team Providers Care Communications Instructor Name Role Phone Michael Hinton MD Primary Care Provider [phone] [phone] Reason for Visit * Reason Onset Date Comments [facility]: Acute 02/19/2024 Encounter Details Date Type Department Care Team (Late st Contact Info) Description 02/19/2024 Telephone [facility], [facility] 132 [facility] [place] [address] [facility], Nurse [facility] 132 [facility] [place] [address] [facility]: Acute Allergies Active Allergy Reactions Criticality Noted Date Comments Fabiano Inhibitors Cough 06/09/2017 Carbidopa W-Levodopa 03/17/2021 Constipation Nsaids Rash 05/17/2018 Contraindicated per public interviewer documented as of this encounter (statuses as of 02/19/2024) Medications Medication Sig Dispensed Refills Start Date End Date Status Glucose Blood (ONETOUCH VERIO) STRPIndications:Ty pe 2 diabetes mellitus with hemoglobin A1c goal of less than 8.0% ([facility]) Use up to 4 times [...] mitral valve regurgitation,Krista nary artery disease involving [place] coronary artery of [place] heart without angina pectoris,Paroxysma l atrial fibrillation [...] Last Assessment & Plan: Followed closely by [facility] hematology. No identified cause of [...] knees 03/21/2018 Coronary artery disease invo lving [place] coronary artery of [place] heart without angina pectoris 03/21/2018 Last Assessment [...] scanned document [place] 11/13/[address] [facility] [place] 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y [...] mRNA, LNP-s, No Pre serve, 2-Dose Series (Exoprise) 11/03/2021,12/19/2020,11/28/2020 Covid-19 Ad26, Single Dose ([employer]) 12/19/2020,11/28/2020 DTaP Dipth/Tet/Acell Pertussis (Infanrix), Peds 10/24/2019 [...] went to voice mail Message left advising [facility] order to start his DTP of doubling Torsemide x 3 days, start today by taking extra (2) 20 meq tablets, then (4) 20 meq on and Mon [facility] [phone] # provided for questions Ashley Garcia RN, BSN [facility] Intake Triage Coordinator [phone] * Telephone Encounter - Michael Briggs DO - 02/19/2024 11:37 AM EDT [facility] Subprogram: Primary Care at Home Recommendations: I [...] and correspondence: NA to Jesus[facility] Care Team magneto repairer Pool please work on the following: contact the caller with advice and orders as above Michael Briggs, [facility] - [facility] 02/19/2024 Scheduled appointments in the next 60 days: Future Appointments-next 60 days Date/Time Provider Specialty Dept Phone 02/20/2024 11:00 AM Coordinator, José Miguel Giuliano Tafoya [facility] [phone] 02/21/2024 10:15 AM Coordinator, [facility] [phone] 02/26/2024 12:30 PM Jeronimo Nurse Annual Wellness Niru Ancillary [phone] 02/29/2024 7:05 AM [facility] Draw Laboratory Processing [phone] 03/01/2024 4:00 PM Peggy De RN [facility] [phone] 03/11/2024 3:15 PM Kalpesh Funes MD Urology [phone] 03/14/2024 7:05 AM [facility] Laboratory Processing [phone] 03/14/2024 3:00 PM Berny Power PA-C [facility] [phone] 03/22/2024 3:00 PM (Arrive by 2:45 PM) Nataly Stone PA-C Nephrology [phone] 03/28/2024 7:00 AM [facility] Draw Laboratory Processing [phone] 04/11/2024 7:00 AM [facility] Draw Laboratory Processing [phone] 04/24/2024 7:00 AM [facility] Draw Laboratory Processing [phone] 05/09/2024 7:00 AM [facility] Draw Laboratory Processing [phone] 05/23/2024 7:00 AM [facility] Draw Laboratory Processing [phone] 06/06/2024 7:00 AM [facility] Draw Laboratory Processing [phone] 06/20/2024 7:00 AM [facility] Draw Laboratory Processing [phone] 07/04/2024 7:00 AM [facility] Draw Laboratory Processing [phone] 07/18/2024 7:00 AM [facility] Draw Laboratory Processing [phone] 08/01/2024 7:00 AM [facility] Draw Laboratory Processing [phone] 08/15/2024 7:00 AM [facility] Draw Laboratory Processing [phone] 08/29/2024 7:00 AM [facility] Draw Laboratory Processing [phone] 09/12/2024 7:00 AM [facility] Draw Laboratory Processing [phone] 09/26/2024 7:00 AM [facility] Draw Laboratory Processing [phone] * Telephone Encounter - Vicky Garcia RN - 02/19/2024 11:20 AM EDT Images from the original note were not included. [facility] magneto repairer Acute Call Date: 02/19/2024 Time: 11:20 AM [...] leg due to being on hold with [facility], she will have a photo taken at Monday dressing change visit and will call [facility] with an update No Fever LE's do [...] FABIANO (generalized anxiety disorder) F41.1 Primary parkinsonism ([facility]) G20.C S/P CABG x 3 Z95.1 Primary osteoarthritis of both knees M17.0 Coronary artery disease involving [place] coronary artery of new[place] heart without angina pectoris I25.10 HTN, goal below 130/80 I10 Type 2 diabetes mellitus with hemoglobin A1c goal of less than 8.0% ([facility]) 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, 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, 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 Type 2 diabetes mellitus with diabetic peripheral angiopathy without gangrene ([facility]) E11.51 Gastro-esophageal reflux disease without esophagitis [...] ulcer of right lower extremity (HCC) I83.019, L97.394 Nursing Assessment: Patient's chief complaint for this [...] any fluid restriction given Will route to [facility] for recommendations/orders Follow up calls set Treatment/Plan: Level of call: Acute Appointment scheduled for same day: No Provider Name: ABIOLA Garcia RN, BSN [facility] Intake Triage Coordinator [phone] Call back instructions provided to patient. documented in this encounter Plan of Treatment Upcoming Encounters Date Type Department Care Team (Late st Contact Info) Description 02/20/2024 11:00 AM EDT Scheduled Telephone [facility] [address] [place] [address] Coordinator, [place] [address] [address] [place] [address] 02/21/2024 10:15 AM EDT Scheduled Telephone [facility] [place] [address] [place] [address] Coordinator, [address] [place] [address] 02/26/2024 12:30 PM EDT Nurse Only Ancillary [facility] 132 [facility] [place] [address] [facility] Wellness Niru [facility] [place] [address] 02/29/2024 7:05 AM EDT Laboratory Lab Mobile Phlebotomy [facility] [address] [facility] [place] [address] [facility] Home Draw [address] [facility] [place] [address] 03/01/2024 4:00 PM EDT Home Visit [facility], [facility] 132 [facility] [place] [address] Peggy De RN 132 [facility] [place] [address] 03/11/2024 3:15 PM EDT Office Visit Urology, [facility] 132 [facility] [place] [address] Kalpesh Funes MD [address] [place] [address] [place] [address] 03/14/2024 7:05 AM EDT Laboratory Lab Mobile Phlebotomy [facility] [address] [facility] [place] [address] [facility], [facility] Mobile Home Draw [address] [facility] [place] [address] 03/14/2024 3:00 PM EDT Home Visit [facility], [facility] 132 [facility] [place] [address] Berny Power PA-C 132 [facility] [place] [address] 03/22/2024 3:00 PM EDT Office Visit Nephrology, [place] [address] [place] [address] ZeNataly bailey PAKittyC 200 [place] [address] 03/28/2024 7:00 AM EDT Laboratory Lab Mobile Phlebotomy [facility] [address] [employer] [place] [address] M[facility]mg, Gml Mobile Home Draw [address] [employer] [place] [address] 04/11/2024 7:00 AM EDT Laboratory Lab Mobile Phlebotomy [facility] [address] [employer] [place] [address] M[facility], Gml Mobile Home Draw [address] [employer] [place] [place] [address] 04/24/2024 7:00 AM EDT Laboratory Lab Mobile Phlebotomy [facility] [address] [employer] [place] [place] [address] Mvmg, Gml Mobile Home Draw [address] [employer] [place] [place] [address] 05/09/2024 7:00 AM EDT Laboratory Lab Mobile Phlebotomy [facility] [address] [employer] [place] [place] [address] M[facility], Gml Mobile Home Draw [address] [employer] [place] [place] [address] 05/23/2024 7:00 AM EDT Laboratory Lab Mobile Phlebotomy [facility] [address] [employer] [place] [place] [address] Mvmg, Gml Mobile Home Draw [address] [employer] [place] [place] [address] 06/06/2024 7:00 AM EDT Laboratory Lab Mobile Phlebotomy [facility] [address] [employer] [place] [place] [address] Mvmg, Gml Mobile Home Draw [address] [employer] [place] [place] [address] 06/20/2024 7:00 AM EDT Laboratory Lab Mobile Phlebotomy [facility] [address] [employer] [place] [address] Mvmg, Gml Mobile Home Draw [address] [employer] [place] [place] [address] 07/04/2024 7:00 AM EDT Laboratory Lab Mobile Phlebotomy [facility] [address] [facility] [place] [address] M[facility], Gml Mobile Home Draw [address] [facility] [place] [address] 07/18/2024 7:00 AM EDT Laboratory Lab Mobile Phlebotomy [facility] [address] [facility] [place] [address] M[facility]mg, Gml Mobile Home Draw [address] [place] [address] 08/01/2024 7:00 AM EDT Laboratory Lab Mobile Phlebotomy [facility] [address] [place] [address] Mv[facility], Gml Mobile Home Draw [address] [place] [address] 08/15/2024 7:00 AM EDT Laboratory Lab Mobile Phlebotomy [facility] [address] [facility] [place] [address] Mvmg, Gml Mobile Home Draw [address] [place] [address] 08/29/2024 7:00 AM EST Laboratory Lab Mobile Phlebotomy [facility] [address] [facility] [place] [address] M[facility], Gml Mobile Home Draw [address] [place] [address] 09/12/2024 7:00 AM EST Laboratory Lab Mobile Phlebotomy [facility] [address] [address] M[facility], Gml Mobile Home Draw [address] [place] [address] 09/26/2024 7:00 AM EST Laboratory Lab Mobile Phlebotomy [facility] [address] [facility] [place] [address] M[facility], Gml Mobile Home Draw [address] [place] [address] Health Maintenance Due Date Last Done Comments [...] 023, 03/08/2019, 04/09/2014 CKD PHOS USE SMARTSET 98168 12/07/202411/23, 12/26/2022, 06/21/2021 CKD HGB USE SMARTSET 97755 02/14/202502/14, 02/15/2024, 02/01/2024, Additional history exists Colonoscopy [...] this encounter Medical Devices Implanted Type Area Sales Order Clerk Device Identifier Shelf Expiration Date Model / Serial / Lot Lens Intraoc 22.5 - [id number] - [id number] Implanted:Qty: 1 on 05/22/2018 by Jasbir Maurer MD at OR [facility] Right: Eye [employer] 11/22/2022 [id number] / [id number] / [id number] Lens Intraoc 21.0 - [id number] - [id number] Implanted:Qty: 1 on 06/05/2018 by Jasbir Maurer MD at OR [facility] Left: Eye [employer]OM[employer] 12/20/2022 [id number] / [id number] / documented as of this encounter Advance [...] Care Power of Attor mayela Care Teams Communications Instructor Relationship Specialty Start Date End Date Michael Hinton MD 132 [place] [address] PCP - General Family Medicine 08/07/17 documented as of this encounter
--- OUTSIDE RECORDS SUMMARY | 2024-03-01 06:25 | External Medical Summary | Summary of Care ---
Author Name Unknown Organization [facility] Address [address] [place] [address] Phone [phone] Care Team Providers Care Flash Developer Name Role Phone Michael Hinton MD Primary Care Provider [phone] Reason for Visit * Reason Onset Date Comments Appointment 02/20/2024 Encounter Details Date Type Department Care Team (Late st Contact Info) Description 02/20/2024 Telephone [facility], [facility] [place] [facility] [address] [place] [address] Services, Scheduling [address] [place] [address] Appointment (//) Allergies Active Allergy Reactions Criticality Noted Date Comments Fabiano Inhibitors Cough 06/09/2017 Carbidopa W-Levodopa 03/17/2021 Constipation Nsaids Rash 05/17/2018 Contraindicated per operator cavity pump documented as of this encounter (statuses as [...] mitral valve regurgitation,Krista nary artery disease involving [place] coronary artery of [place] heart without angina pectoris,Paroxysma l atrial fibrillation [...] Last Assessment & Plan: Followed closely by [facility] hematology. No identified cause [...] knees 03/21/2018 Coronary artery disease invo lving [place] coronary artery of [place] heart without angina pectoris 03/21/2018 Last Assessment [...] scanned document from 11/13/[address] [facility], [facility] [place]. 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y [...] encounter Miscellaneous Notes * Telephone Encounter - Ashley Carmen OSA - 02/20/2024 8:35 AM EDT Request to cx and rs appt on 03/14 w/Jannet I found 03/28@3 and called and lmom of the new date andtime documented in this encounter Plan of Treatment Upcoming Encounters Date Type Department Care Team (Late st Contact Info) Description 02/20/2024 11:00 AM EDT Scheduled Telephone [facility] 132 [place] [address] Coordinator, [facility] [address] [place] [address] 02/21/2024 10:15 AM EDT Scheduled Telephone [facility] 132 [place] [address] Coordinator, [facility] [address] [place] [address] 02/26/2024 12:30 PM EDT Nurse Only Ancillary [facility] [address] [facility], Nurse [facility] Wellness [facility] [address] 02/29/2024 7:05 AM EDT Laboratory Lab Mobile Phlebotomy [facility] [address] [facility] [address] [place] [address] [facility], Gml Mobile Home Draw [address] [facility] [place] [address] 03/01/2024 4:00 PM EDT Home Visit [facility], [facility] 132 [facility] [place] [address] Peggy De RN 132 [place] [address] 03/11/2024 3:15 PM EDT Office Visit Urology, [facility] [address] Kalpesh Funes MD [address] [place] [address] [place] [address] 03/14/2024 7:05 AM EDT Laboratory Lab Mobile Phlebotomy [facility] [address] [facility] [address] [place] [address] M[facility], Gml Mobile Home Draw [address] [facility] [place] [address] 03/22/2024 3:00 PM EDT Office Visit Nephrology, Melissa La [address] [place] [address] ZeNataly bailey PA-C [address] [place] [address] 03/28/2024 7:00 AM EDT Laboratory Lab Mobile Phlebotomy [facility] [address] [facility] [place] [address] M[facility]mg, Gml Mobile Home Draw [address] [place] [address] 03/28/2024 3:00 PM EDT Home Visit [facility], [facility] [address] [place] [address] Berny Power PA-C [address] [place] [address] 04/11/2024 7:00 AM EDT Laboratory Lab Mobile Phlebotomy [facility] [address] [employer] [address] [place], [place] [address] Mvmg, Gml Mobile Home Draw [address] [place], [place] [address] 04/24/2024 7:00 AM EDT Laboratory Lab Mobile Phlebotomy [facility] [address] [place], [place] [address] Mvmg, Gml Mobile Home Draw [address] [place], [place] [address] 05/09/2024 7:00 AM EDT Laboratory Lab Mobile Phlebotomy [facility] [address] [place], [place] [address] Mvmg, Gml Mobile Home Draw [address] [place] [address] 05/23/2024 7:00 AM EDT Laboratory Lab Mobile Phlebotomy [facility] [address] [place] [address] Mvmg, Gml Mobile Home Draw [address] [place] [address] 06/06/2024 7:00 AM EDT Laboratory Lab Mobile Phlebotomy [facility] [address] [place], [place] [address] Mvmg, Gml Mobile Home Draw [address] [place], [place] [address] 06/20/2024 7:00 AM EDT Laboratory Lab Mobile Phlebotomy [facility] [address], [place] [address] Mvmg, Gml Mobile Home Draw [address] [place] [address] 07/04/2024 7:00 AM EDT Laboratory Lab Mobile Phlebotomy [facility] [address] [place] [address] Mvmg, Gml Mobile Home Draw [address] [place] [address] 07/18/2024 7:00 AM EDT Laboratory Lab Mobile Phlebotomy [facility] [address] [place] [address] Mvmg, Gml Mobile Home Draw [address] [facility] [place] [address] 08/01/2024 7:00 AM EDT Laboratory Lab Mobile Phlebotomy [facility] [address] [place] [address] Mvmg, Gml Mobile Home Draw [address] [place] [address] 08/15/2024 7:00 AM EDT Laboratory Lab Mobile Phlebotomy [facility] [address] [place] [address] Mvmg, Gml Mobile Home Draw [address] [facility] [place] [address] 08/29/2024 7:00 AM EST Laboratory Lab Mobile Phlebotomy [facility] [address] [place] [address] Mvmg, Gml Mobile Home Draw [address] [place] [address] 09/12/2024 7:00 AM EST Laboratory Lab Mobile Phlebotomy [facility] [address] [place] [address] Mvmg, Gml Mobile Home Draw [address] [place] [address] 09/26/2024 7:00 AM EST Laboratory Lab Mobile Phlebotomy [facility] [address] [place] [address] Mvmg, Gml Mobile Home Draw [address] [place] [address] Health Maintenance Due Date Last Done Comments [...] 023, 03/08/2019, 04/09/2014 CKD PHOS USE SMARTSET 92661 12/07/202411/23, 12/26/2022, 06/21/2021 CKD HGB USE SMARTSET 75266 02/14/202502/14, 02/15/2024, 02/01/2024, Additional history exists Colonoscopy [...] this encounter Medical Devices Implanted Type Area Telegraph Printer Mechanic Device Identifier Shelf Expiration Date Model / Serial / Lot Lens Intraoc 22.5 - [id number] - [id number] Implanted:Qty: 1 on 05/22/2018 by Jasbir Maurre MD at [facility] Right: Eye [employer] 11/22/2022 [id number] / [id number] / [id number] Lens Intraoc 21.0 - [id number] - [id number] Implanted:Qty: 1 on 06/05/2018 by Jasbir Maurer MD at [facility] Left: Eye [employer]OM[employer] 12/20/2022 [id number] / [id number] / documented as of this encounter Advance [...] Care Power of Attor mayela Care Teams Flash Developer Relationship Specialty Start Date End Date Michael Hinton MD 132 [facility] [place] [address] PCP - General Family Medicine 08/07/17 documented as of this encounter
--- OUTSIDE RECORDS SUMMARY | 2024-03-01 06:25 | External Medical Summary | Summary of Care ---
Author Name Unknown Organization [facility] Address [address] [place] [address] Phone [phone] Care Team Providers Care Urologist Physician Name Role Phone Michael Hinton MD Primary Care Provider [phone] Reason for Visit * Reason Onset Date Comments Information 02/13/2024 Encounter Details Date Type Department Care Team ([facility] st Contact Info) Description 02/13/2024 Telephone [facility], [place] [address] [place] [address] [phone] Services, Scheduling [address] [place] [address] Information Allergies Active Allergy Reactions Criticality Noted Date Comments Fabiano Inhibitors Cough 06/09/2017 Carbidopa W-Levodopa 03/17/2021 Constipation Nsaids Rash 05/17/2018 Contraindicated per bellhop captain documented as of this encounter (statuses as of 02/13/2024) Medications Medication Sig Dispensed Refills Start Date End Date Status Glucose Blood (ONETOUCH VERIO) STRPIndications:Ty pe 2 diabetes mellitus with hemoglobin A1c goal of less than 8.0% ([facility]) Use up to 4 times a [...] MOUTH EVERY DAY 90 Tablet 3 04/15/2023 04/14/2024 Active Additional Information Patient taking differently: 39 [...] mitral valve regurgitation,Krista nary artery disease involving telida coronary artery of telida heart without angina pectoris,Paroxysma l atrial fibrillation [...] as of this encounter (statuses as of 02/13/2024) Active Problems Problem Noted Date Diagnosed Date [...] knees 03/21/2018 Coronary artery disease invo lving telida coronary artery of telida heart without angina pectoris 03/21/2018 Last Assessment [...] as of this encounter (statuses as of 02/13/2024) Resolved Problems Problem Noted Date Diagnosed Date [...] scanned document from 11/13/[address] bains, [facility] [place]. 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y [...] as of this encounter (statuses as of 02/13/2024) Immunizations Name Administration Dates Next Due COVID-19 mRNA, LNP-s, No Pre serve, 2-Dose Series ([email or web address]) 11/03/2021,12/19/2020,11/28/2020 Covid-19 Ad26, Single Dose (Soy/J&J) 12/19/2020,11/28/2020 [...] encounter Miscellaneous Notes * Telephone Encounter - Patti Vital OSA - 02/13/2024 2:28 PM EDT Message that Herminio MORAN is unable to follow pt. Call to SELMA MORAN, , faxed the following documents demographics, insurance, notes and referral to [phone], the soonest appt they could dois next Monday,02/20 documented in this encounter Plan of Treatment Upcoming Encounters Date Type Department Care Team (Late st Contact Info) Description 02/14/2024 1:30 PM EDT Imaging Vascular Lab, [facility] 2nd [facility] [address] [facility] [place] [address] 02/15/2024 7:05 AM EDT Laboratory Lab Mobile Phlebotomy [facility] [address] [place] [address] Mv, [facility] Draw [address] [place] [address] 02/26/2024 12:30 PM EDT Nurse Only Ancillary [facility] [address] [place] [address] [facility], [facility] Wellness [facility] [address] [place] [address] 02/29/2024 7:05 AM EDT Laboratory Lab Mobile Phlebotomy [facility] [address] [facility] [place] [address] Mvmg, [facility] Draw [address] [facility] [place] [address] 03/01/2024 4:00 PM EDT Home Visit [facility], [facility] [address] [place] [address] Peggy De RN [address] [facility] [place] [address] 03/11/2024 3:15 PM EDT Office Visit Urology, [facility] [address] [place] [address] Kalpesh Funes MD [address] [address] [place] [address] 03/14/2024 7:05 AM EDT Laboratory Lab Mobile Phlebotomy [facility] [address] [facility] [place] [address] Mvmg, [facility] Draw [address] [facility] [place] [address] 03/14/2024 3:00 PM EDT Home Visit [facility], [facility] [address] [place] [address] Berny Power PA-C [address] [facility] [place] [address] 03/22/2024 3:00 PM EDT Office Visit Nephrology, [place] [address] [place] [address] ZemaNataly johnson PA-C [address] [facility] [place] [address] 03/28/2024 7:00 AM EDT Laboratory Lab Mobile Phlebotomy [facility] [address] [facility] [place] [address] Mvmg, G[facility] Draw [address] [facility] [place] [address] 04/11/2024 7:00 AM EDT Laboratory Lab Mobile Phlebotomy [facility] [address] [facility] [place] [address] Mvmg, Gml Mobile Home Draw [address] [facility] [place] [address] 04/24/2024 7:00 AM EDT Laboratory Lab Mobile Phlebotomy [facility] [address] [facility] [place] [address] Mvmg, Gml [facility] Draw [address] [facility] [place] [address] 05/09/2024 7:00 AM EDT Laboratory Lab Mobile Phlebotomy [facility] [address] [facility] [place] [address] Mvmg, Gml Mobile Home Draw [address] [facility] [place] [address] 05/23/2024 7:00 AM EDT Laboratory Lab Mobile Phlebotomy [facility] [address] [facility] [place] [address] Mvmg, Gml [facility] Draw [address] [facility] [place] [address] 06/06/2024 7:00 AM EDT Laboratory Lab Mobile Phlebotomy [facility] [address] [facility] [place] [address] Mvmg, Gml Mobile Home Draw [address] [facility] [place] [address] 06/20/2024 7:00 AM EDT Laboratory Lab Mobile Phlebotomy [facility] [address] [facility] [place] [address] Mvmg, Gml [facility] Draw [address] [facility] [place] [address] 07/04/2024 7:00 AM EDT Laboratory Lab Mobile Phlebotomy [facility] [address] [facility] [place] [address] Mvmg, Gml Mobile Home Draw [address] [facility] [place] [address] 07/18/2024 7:00 AM EDT Laboratory Lab Mobile Phlebotomy [facility] [address] [place] [address] Mvmg, Gml Mobile Home Draw [address] [place] [address] 08/01/2024 7:00 AM EDT Laboratory Lab Mobile Phlebotomy [facility] [address] [facility] [place] [address] Mvmg, Gml Mobile Home Draw [address] [facility] [place] [address] 08/15/2024 7:00 AM EDT Laboratory Lab Mobile Phlebotomy [facility] [address] [place] [address] Mvmg, Gml Mobile [facility] Draw [address] [place] [address] 08/29/2024 7:00 AM EST Laboratory Lab Mobile Phlebotomy [facility] [address] [place] [address] Mvmg, Gml [facility] Draw [address] [facility] [place] [address] 09/12/2024 7:00 AM EST Laboratory Lab Mobile Phlebotomy [facility] [address] [facility] [place] [address] Mvmg, Gml Mobile Home Draw [address] [place] [address] 09/26/2024 7:00 AM EST Laboratory Lab Mobile Phlebotomy [facility] [address] [place] [place] [address] Mvmg, Gml [facility] Draw [address] [facility] [place] [address] Health Maintenance Due Date Last Done Comments [...] 023, 03/08/2019, 04/09/2014 CKD PHOS USE SMARTSET 67138 12/07/202411/23, 12/26/2022, 06/21/2021 CKD HGB USE SMARTSET 01361 01/31/202501/31, 02/01/2024, 01/18/2024, Additional history exists COLONOSCOPY-EVERY 3 YRS AGES 18-100 10/18/2026 10/18/2023, 09/12/2022, 07/10/2020, Additional history exists DTaP,Tdap,and Td Vaccines [...] this encounter Medical Devices Implanted Type Area Size Marker Device Identifier Shelf Expiration Date Model / Serial / Lot Lens Intraoc 22.5 - [id number] - [id number] Implanted:Qty: 1 on 05/22/2018 by Jasbir Maurer MD at OR [facility] Right: Eye [employer] 11/22/2022 [id number] / [id number] / [id number] Lens Intraoc 21.0 - [id number] - [id number] Implanted:Qty: 1 on 06/05/2018 by Jasbir Maurer MD at OR [facility] Left: Eye [employer]OM[employer] 12/20/2022 [id number] / [id number] / documented as of this encounter Advance [...] Care Power of Attor mayela Care Teams Urologist Physician Relationship Specialty Start Date End Date Michael Hinton MD [address] [place] [address] PCP - General Family Medicine 08/07/17 documented as of this encounter
--- OUTSIDE RECORDS SUMMARY | 2024-03-01 06:25 | External Medical Summary ---
Author Name Unknown Address Unknown Organization K0G[facility] - [address] [place] [id number] Laboratory Report Ordering Provider Test Date Status GUERRERO CHAUHAN 02/15/2024 10:16:00 Final Observation Date Value Abnormality Reference (Units ) Status WBC, Total 02/15/2024 10:16:00 4.22 4.00-10.8 0 (K/uL) Final RBC 02/15/2024 10:16:00 2.92 4.50-5.25 (M/uL) Final Hemoglobin 02/15/2024 10:16:00 10.0 Below low normal 14 .0-16.8 (g/dL) Final HCT 02/15/2024 10:16:00 30.7 Below low normal 40. 0-48.4 (%) Final MCV 02/15/2024 10:16:00 105.1 82.0-99.5 (fL) Final MCH 02/15/2024 10:16:00 34.2 27.0-34.0 (pg) Final MCHC 02/15/2024 10:16:00 32.6 32.0-36.0 (g/dL) Final RDW 02/15/2024 10:16:00 16.7 11.5-15.5 (%) Final Platelets 02/15/2024 10:16:00 98 Below low normal 140 -400 (K/uL) Final MPV 02/15/2024 10:16:00 9.7 6.6-11.1 ( fL) Final Performing Location [facility] 0 - [address] [place] [id number]
--- OUTSIDE RECORDS SUMMARY | 2024-03-01 06:26 | External Medical Summary | Summary of Care ---
Author Name Unknown Organization [facility] Address [address] [place] [address] Phone [phone] Care Team Providers Care Order Make Up Clerk Name Role Phone Michael Hinton MD Primary Care Provider [phone] Reason for Visit * Reason Onset Date Comments Information 02/13/2024 Encounter Details Date Type Department Care Team ([facility] st Contact Info) Description 02/13/2024 Telephone [facility], [place] [address] [place] [address] [phone] Services, Scheduling [address] [place] [address] Information (//) Allergies Active Allergy Reactions Criticality Noted Date Comments Fabiano Inhibitors Cough 06/09/2017 Carbidopa W-Levodopa 03/17/2021 Constipation Nsaids Rash 05/17/2018 Contraindicated per marketing performance analyst documented as of this encounter (statuses [...] mitral valve regurgitation,Krista nary artery disease involving [place] coronary artery of [place] heart without angina pectoris,Paroxysma l atrial [...] knees 03/21/2018 Coronary artery disease invo lving [place] coronary artery of [place] heart without angina pectoris 03/21/2018 Last [...] scanned document from 11/13/[address] bains, [facility] [place]. 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y [...] Encounter - Patti Vital OSA - 02/13/2024 1:35 PM EDT Request to get HH scheduled, called several agencies, [facility] at [phone] will call us back to let us know if they can do the HH piece. documented in this encounter Plan of Treatment Upcoming Encounters Date Type Department Care Team (Late st Contact Info) Description 02/14/2024 1:30 PM EDT Imaging Vascular Lab, [facility] 2nd [facility] [address] [facility] [place] [address] 02/15/2024 7:05 AM EDT Laboratory Lab Mobile Phlebotomy [facility] [address] [place] [address] Mvmg, Gml Mobile Home Draw [address] [place] [address] 02/26/2024 12:30 PM EDT Nurse Only Ancillary [facility] [address] [facility] [place] [address] [facility], Nurse Annual Wellness Niru [address] [facility] [place] [address] 02/29/2024 7:05 AM EDT Laboratory Lab Mobile Phlebotomy [facility] [address] [facility] [place] [address] Mvmg, Gml Mobile Home Draw [address] [facility] [place] [address] 03/01/2024 4:00 PM EDT [facility] [address] [facility] [place] [address] Peggy De RN 132 [facility] [place] [address] 03/11/2024 3:15 PM EDT Office Visit Urology, [facility] [address] [facility] [place] [address] Kalpesh Funes MD [address] [place] [address] 03/14/2024 7:05 AM EDT Laboratory Lab Mobile Phlebotomy [facility] [address] [facility] [place] [address] Mvmg, Gml Mobile Home Draw [address] [facility] [place], [place] [address] 03/14/2024 3:00 PM EDT [facility] Visit [facility] [address] [facility] [place] [address] Berny Power PA-C [address] [facility] [place] [address] 03/22/2024 3:00 PM EDT Office Visit Nephrology, [address] [place], [place] [address] Nataly Stone PA-C [address] [place] [address] 03/28/2024 7:00 AM EDT Laboratory Lab Mobile Phlebotomy [facility] [address] [place] [address] Mvmg, Gml [facility] Draw [address] [place] [address] 04/11/2024 7:00 AM EDT Laboratory Lab Mobile Phlebotomy [facility] [address] [place] [address] Mvmg, Gml [facility] Draw [address] [place] [address] 04/24/2024 7:00 AM EDT Laboratory Lab Mobile Phlebotomy [facility] [address] [place] [address] Mvmg, Gml [facility] Draw [address] [place] [address] 05/09/2024 7:00 AM EDT Laboratory Lab Mobile Phlebotomy [facility] [address] [place] [address] Mvmg, Gml [facility] Draw [address] [place] [address] 05/23/2024 7:00 AM EDT Laboratory Lab Mobile Phlebotomy [facility] [address] [place] [address] Mvmg, Gml Mobile Home Draw [address] [place] [address] 06/06/2024 7:00 AM EDT Laboratory Lab Mobile Phlebotomy [facility] [address] [place] [address] Mvmg, Gml [facility] Home Draw [address] [place] [address] 06/20/2024 7:00 AM EDT Laboratory Lab Mobile Phlebotomy [facility] [address] [place] [address] Mvmg, Gml [facility] Draw [address] [place] [address] 07/04/2024 7:00 AM EDT Laboratory Lab Mobile Phlebotomy [facility] [address] [place] [address] Mvmg, Gml [facility] Draw [address] [place] [address] 07/18/2024 7:00 AM EDT Laboratory Lab Mobile Phlebotomy [facility] [address] [place] [address] Mvmg, Gml [facility] Draw [address] [place] [address] 08/01/2024 7:00 AM EDT Laboratory Lab Mobile Phlebotomy [facility] [address] [place] [address] Mvmg, Gml [facility] Draw [address] [place] [address] 08/15/2024 7:00 AM EDT Laboratory Lab Mobile Phlebotomy [facility] [address] [place] [address] Mvmg, Gml [facility] Draw [address] [place] [address] 08/29/2024 7:00 AM EST Laboratory Lab Mobile Phlebotomy [facility] [address] [place] [address] Mvmg, Gml [facility] Draw [address] [place] [address] 09/12/2024 7:00 AM EST Laboratory Lab Mobile Phlebotomy [facility] [address] [place] [address] Mvmg, Gml Mobile Home Draw [address] [facility] [place] [address] 09/26/2024 7:00 AM EST Laboratory Lab Mobile Phlebotomy [facility] [address] [place] [address] Mvmg, Gml Mobile Home Draw [address] [place] [address] Health Maintenance Due Date Last Done Comments [...] 023, 03/08/2019, 04/09/2014 CKD PHOS USE SMARTSET 81833 12/07/202411/23, 12/26/2022, 06/21/2021 CKD HGB USE SMARTSET 20972 01/31/202501/31, 02/01/2024, 01/18/2024, Additional history exists COLONOSCOPY-EVERY [...] this encounter Medical Devices Implanted Type Area Social Studies Teacher Device Identifier Shelf Expiration Date Model / Serial / Lot Lens Intraoc 22.5 - [id number] - [id number] Implanted:Qty: 1 on 05/22/2018 by Jasbir Maurer MD at OR [facility] Right: Eye [employer] 11/22/2022 [id number] / [id number] / [id number] Lens Intraoc 21.0 - [id number] - [id number] Implanted:Qty: 1 on 06/05/2018 by Jasbir Maurer MD at OR [facility] Left: Eye [employer]CH [employer]OM[employer] 12/20/2022 [id number] / [id number] / documented as of this encounter Advance [...] Care Power of Attor mayela Care Teams Order Make Up Clerk Relationship Specialty Start Date End Date Michael Hinton MD [address] [place] [address] PCP - General Family Medicine 08/07/17 documented as of this encounter
--- OUTSIDE RECORDS SUMMARY | 2024-03-01 06:26 | External Medical Summary | Summary of Care ---
Author Name Unknown Organization [facility] Address [address] [place] [address] Phone [phone] Care Team Providers Care Bundle Tier Name Role Phone Michael Hinton MD Primary Care Provider [phone] Reason for Referral * Evaluate & Treat - Unlimited Visits (Within 30 days (routine)) - Authorized Specialty Diagnoses / Procedures Referred By Contfrancois t Referred To Contact Podiatry Diagnoses Referral of patient Michael Hinton MD [address] [facility] [place] [address] Referral ID Status Reason Start Date Expiration Date Visits Requested Visits Authorized [id number] Authorized Specialty Services Required 02/06/2024 999 999 Question Answer Referral Priority Within 30 days (routine) Where should this appointment be scheduled? [facility] Which condition are you referring this patient for? General Podiatry/Other Reason for Visit * Reason Onset Date Comments Fax 01/31/2024 Encounter Details Date Type Department Care Team (Late st Contact Info) Description 01/31/2024 Telephone Family Practice [facility] [address] [place] [address] Michael Hinton MD [address] [place] [address] Fax Allergies Active Allergy Reactions Criticality Noted Date Comments Fabiano Inhibitors Cough 06/09/2017 Carbidopa W-Levodopa 03/17/2021 Constipation Nsaids Rash 05/17/2018 Contraindicated per computer technologist documented as of this encounter (statuses as of 02/06/2024) Medications Medication Sig Dispensed Refills Start Date End Date Status Glucose Blood (ONETOUCH VERIO) STRPIndications:Ty pe 2 diabetes mellitus with hemoglobin A1c goal of less than 8.0% (HCC) Use up to 4 times a day E11.9 400 Strip 3 08/29/2018 Active ONETOUCH DELANTONIETTA LANCETS 33G MISCIndications:Ty pe 2 diabetes mellitus [...] EVENING 90 Tablet 3 02/16/2023 05/10/2024 Active Escitalopram Oxalate 20 MG Oral Tablet (Lexapro) TAKE ONE TABLET BY MOUTH EVERY MORNING 90 Tablet 3 01/23/2023 02/16/2024 Active DIURETIC TITRATION PLAN If no improvement [...] mitral valve regurgitation,Krista nary artery disease involving circle coronary artery of circle heart without angina pectoris,Paroxysma l atrial fibrillation [...] with inhaler. 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 [...] as of this encounter (statuses as of 02/06/2024) Immunizations Name Administration Dates Next Due COVID-19 mRNA, LNP-s, No Pre serve, 2-Dose Series ([employer]) 11/03/2021,12/19/2020,11/28/2020 Covid-19 Ad26, Single Dose (NCTech/J&J) 12/19/2020,11/28/2020 DTaP Dipth/Tet/Acell Pertussis (Infanrix), Peds 10/24/2019 [...] Notes * Telephone Encounter - Magy Mercado OSA - 02/06/2024 11:56 AM EDT faxed * Telephone Encounter - Pricila Hernadez LPN - 02/06/2024 11:18 AM EDT Please fax per request * Telephone Encounter - Michael Hinton MD - 02/04/2024 8:47 PM EDT yes * Telephone Encounter - Petra Poon LPN - 01/31/2024 5:38 PM EDT Pt has not been seen by PCP since 11/29/2022 Are you agreeable to placing referral? * Telephone Encounter - Candy Mercado OSA - 01/31/2024 2:38 PM EDT Person calling: Wilfredo Relationship to patient: [facility] Number to return call: [phone] Reason for call: provider calling to ask Dr Hinton for referral to [facility]. Fax number [phone] Pharmacy: Provider Name:Mary Jane documented in this encounter Plan of Treatment Upcoming Encounters Date Type Department Care Team (Late st Contact Info) Description 02/12/2024 5:30 PM EDT [facility] Visit [facility] [place] [address] Peggy De, RN [address] [place] [address] 02/15/2024 7:05 AM EDT Laboratory [facility] [address] [place] [address] [facility], [facility] Draw [address] [place] [address] 02/26/2024 12:30 PM EDT Nurse Only Ancillary [facility] 132 [facility] [place] [address] Decker, Nurse Annual Wellness [facility] 132 [facility] [place] [address] 02/29/2024 7:05 AM EDT Laboratory Lab [facility] Phlebotomy [facility] [address] [facility] [place] [address] M[facility], [facility] Draw [address] [facility] [place] [address] 03/11/2024 3:15 PM EDT Office Visit Urology, [facility] 132 [facility] [place] [address] Kalpesh Funes MD [address] [address] [place] [address] 03/14/2024 7:05 AM EDT Laboratory Lab Mobile Phlebotomy [facility] [address] [facility] [place] [address] Mvmg, Gml Mobile Home Draw [facility] [place] [address] 03/14/2024 3:00 PM EDT Home Visit [facility], [facility] 132 [facility] [place] [address] Berny Power PA-C 132 [facility] [place] [address] 03/22/2024 3:00 PM EDT Office Visit Nephrology, [place] [address] [place] [address] ZeNataly bailey PA-C [address] [place] [address] 03/28/2024 7:00 AM EDT Laboratory Lab [facility] Phlebotomy [facility] [address] [facility] [place] [address] M[facility], [facility] Draw [address] [place] [address] 04/11/2024 7:00 AM EDT Laboratory Lab [facility] Phlebot[facility] [address] [place] [address] M[facility], Gml Mobile Home Draw [address] [place] [address] 04/24/2024 7:00 AM EDT Laboratory Lab Mobile Phlebotomy [facility] [address] [place] [address] M[facility], [facility]ml [facility] Draw [address] [place] [address] 05/09/2024 7:00 AM EDT Laboratory Lab Mobile Phlebotomy [facility] [address] [place] [address] Mv[facility], Gml Mobile [facility] Draw [address] [place] [address] 05/23/2024 7:00 AM EDT Laboratory Lab Mobile Phlebotomy [facility] [address] [place] [address] Mvmg, Gml Mobile Home Draw [address] [place] [address] 06/06/2024 7:00 AM EDT Laboratory Lab Mobile Phlebotomy [facility] [address] [place] [address] M[facility], Gml Mobile [facility] Draw [address] [place] [address] 06/20/2024 7:00 AM EDT Laboratory Lab [facility] Phlebotomy [facility] [address] [place] [address] M[facility], Gml Mobile [facility] Draw [address] [place] [address] 07/04/2024 7:00 AM EDT Laboratory Lab Mobile Phlebotomy [facility] [address] [place] [address] M[facility], Gml Mobile Home Draw [address] [address] 07/18/2024 7:00 AM EDT Laboratory Lab Mobile Phlebotomy [facility] [address] [place] [address] Mvmg, Gml Mobile Home Draw [address] [facility] [place] [address] 08/01/2024 7:00 AM EDT Laboratory Lab Mobile Phlebotomy [facility] [address] [place] [address] Mv[facility], Gml Mobile Home Draw [address] [facility] [place] [address] 08/15/2024 7:00 AM EDT Laboratory Lab Mobile Phlebotomy [facility] [address] [place] [address] Mvmg, Gml Mobile Home Draw [address] [facility] [place] [address] 08/29/2024 7:00 AM EST Laboratory Lab Mobile Phlebotomy [facility] [address] [place] [address] Mvmg, Gml Mobile Home Draw [address] [facility] [place] [address] 09/12/2024 7:00 AM EST Laboratory Lab Mobile Phlebotomy [facility] [address] [facility] [place] [address] Mvmg, Gml Mobile Home Draw [address] [facility] [place] [address] 09/26/2024 7:00 AM EST Laboratory Lab Mobile Phlebotomy [facility] [address] [facility] [place] [address] Mv[facility], Gml Mobile Home Draw [address] [place] [address] Scheduled Referrals Name Type Priority Associated Diagnoses Orde r Schedule PODIATRY REFERRAL OP Referral Within 30 days (routine) Referral of patient Ordered: 02/06/2024 Health Maintenance Due Date Last Done Comments [...] 023, 03/08/2019, 04/09/2014 CKD PHOS USE SMARTSET 88722 12/07/202411/23, 12/26/2022, 06/21/2021 CKD HGB USE SMARTSET 56243 01/31/202501/31, 02/01/2024, 01/18/2024, Additional history exists COLONOSCOPY-EVERY [...] encounter Medical Devices Implanted Type Area Supervisor Scrap Preparation Device Identifier Shelf Expiration Date Model / Serial / Lot Lens Intraoc 22.5 - [id number] - [id number] Implanted:Qty: 1 on 05/22/2018 by Jasbir Maurer MD at OR [facility] Right: Eye [employer] 11/22/2022 [id number] / [id number] / [id number] Lens Intraoc 21.0 - [id number] - [id number] Implanted:Qty: 1 on 06/05/2018 by Jasbir Maurer MD at OR [facility] Left: Eye [employer]OM[employer] 12/20/2022 [id number] / [id number] / documented as of this encounter Visit Diagnoses Diagnosis Referral of patient- Primary Referral of patient without examination or treatment documented in this encounter Advance Directives Latest [...] Care Power of Attor mayela Care Teams Bundle Tier Relationship Specialty Start Date End Date Michael Hinton MD 132 [place] [address] PCP - General Family Medicine 08/07/17 documented as of this encounter
--- OUTSIDE RECORDS SUMMARY | 2024-03-01 06:26 | External Medical Summary | Summary of Care ---
Author Name Unknown Organization [facility] Address [address] [facility] [address] Phone [phone] Care Team Providers Care Pre K Special Education Teacher Name Role Phone Michael Hinton MD Primary Care Provider [phone] Reason for Visit * Reason Onset Date Comments [facility]: Maintenance 02/06/2024 Encounter Details Date Type Department Care Team (Late st Contact Info) Description 02/06/2024 Telephone [facility], [facility] [address] [place] [address] Peggy De, RN [address] [employer] [place] [address] [facility]: Maintenance Allergies Active Allergy Reactions Criticality Noted Date Comments Fabiano Inhibitors Cough 06/09/2017 Carbidopa W-Levodopa 03/17/2021 Constipation Nsaids Rash 05/17/2018 Contraindicated per stiff straw hat washer documented as of this encounter (statuses as of 02/07/2024) Medications Medication Sig Dispensed Refills Start Date End Date Status Glucose Blood (ONETOUCH VERIO) STRPIndications:Ty pe 2 diabetes mellitus with hemoglobin A1c goal of less than 8.0% ([facility]) Use up to 4 times a day [...] mitral valve regurgitation,Krista nary artery disease involving alutiiq coronary artery of alutiiq heart without angina pectoris,Paroxysma l atrial fibrillation [...] as of this encounter (statuses as of 02/07/2024) Active Problems Problem Noted Date Diagnosed Date [...] knees 03/21/2018 Coronary artery disease invo lving alutiiq coronary artery of alutiiq heart without angina pectoris 03/21/2018 Last Assessment [...] as of this encounter (statuses as of 02/07/2024) Resolved Problems Problem Noted Date Diagnosed Date [...] clinton. 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y [...] as of this encounter (statuses as of 02/07/2024) Immunizations Name Administration Dates Next Due COVID-19 mRNA, LNP-s, No Pre serve, 2-Dose Series ([employer]) 11/03/2021,12/19/2020,11/28/2020 Covid-19 Ad26, Single Dose (Dada/J&J) 12/19/2020,11/28/2020 DTaP Dipth/Tet/Acell Pertussis (Infanrix), Peds 10/24/2019 [...] encounter Miscellaneous Notes * Telephone Encounter - Berny Power PA-C - 02/07/2024 4:06 PM EDT We can update NURYS and go from there. Order is placed. * Telephone Encounter - Peggy De RN - 02/06/2024 9:15 AM EDT Hardy Arrieta Pt went to nurse plastics last week and it was mentioned that possible wounds not healing d/t circulation, ? PAD? Last NURYS I can see was done in 2018 and shows normal flow at that time but reports he was not having these issues then . Would you want to order further testing? Or referral to vascular? Please advise. Thank you! documented in this encounter Plan of Treatment Upcoming Encounters Date Type Department Care Team (Late st Contact Info) Description 02/12/2024 5:30 PM EDT Home Visit [facility], [facility] 132 [facility] [place] [address] Peggy De, RN 132 [facility] [place] [address] 02/15/2024 7:05 AM EDT Laboratory Lab Mobile Phlebotomy [facility] [address] [facility] [place] [address] M[facility], Gml Mobile Home Draw [address] [place] [address] 02/26/2024 12:30 PM EDT Nurse Only Ancillary [facility] 132 [facility] [place] [address] [facility], Nurse Annual Wellness [facility] 132 [facility] [place] [address] 02/29/2024 7:05 AM EDT Laboratory Lab Mobile Phlebotomy [facility] [address] [facility] [place] [address] [facility], Gml Mobile Home Draw [address] [place] [address] 03/11/2024 3:15 PM EDT Office Visit Urology, [facility] 132 [facility] [place] [address] Kalpesh Funes MD [address] [place] [address] [place] [address] 03/14/2024 7:05 AM EDT Laboratory Lab [facility] Phlebotomy [facility] [address] [place] [address] Mvmg, Gml Mobile Home Draw [address] [place] [address] 03/14/2024 3:00 PM EDT Home Visit [facility], [facility] 132 [facility] [place] [address] Berny Power PA-C [address] [place] [address] 03/22/2024 3:00 PM EDT Office Visit Nephrology, [facility] [address] [facility] [place], [place] [address] ZeNataly bailey PAKittyC 200 [facility] [place], [place] [address] 03/28/2024 7:00 AM EDT Laboratory Lab Mobile Phlebotomy [facility] [address] [place], [place] [address] Mv[facility], Gml Mobile Home Draw [address] [place], [place] [address] 04/11/2024 7:00 AM EDT Laboratory Lab Mobile Phlebotomy [facility] [address] [place], [place] [address] Mvmg, Gml Mobile Home Draw [address] [place], [place] [address] 04/24/2024 7:00 AM EDT Laboratory Lab Mobile Phlebotomy [facility] [address] [place] [address] Mvmg, Gml Mobile Home Draw [address] [place] [address] 05/09/2024 7:00 AM EDT Laboratory Lab Mobile Phlebotomy [facility] [address] [place], [place] [address] Mv[facility], Gml Mobile Home Draw [address] [place] [address] 05/23/2024 7:00 AM EDT Laboratory Lab Mobile Phlebotomy [facility] [address] [place], [place] [address] Mvmg, Gml Mobile Home Draw [address] [place], [place] [address] 06/06/2024 7:00 AM EDT Laboratory Lab Mobile Phlebotomy [facility] [address] [place], [place] [address] Mvmg, Gml Mobile Home Draw [address] [place] [address] 06/20/2024 7:00 AM EDT Laboratory Lab Mobile Phlebotomy [facility] [address] [place] [address] Mvmg, Gml Mobile Home Draw [address] [place] [address] 07/04/2024 7:00 AM EDT Laboratory Lab Mobile Phlebotomy [facility] [address] [place] [address] Mvmg, Gml Mobile Home Draw [address] [facility] [place] [address] 07/18/2024 7:00 AM EDT Laboratory Lab Mobile Phlebotomy [facility] [address] [place] [address] Mvmg, Gml Mobile Home Draw [address] [facility] [place] [address] 08/01/2024 7:00 AM EDT Laboratory Lab Mobile Phlebotomy [facility] [address] [facility] [place] [address] Mvmg, Gml Mobile Home Draw [address] [facility] [place] [address] 08/15/2024 7:00 AM EDT Laboratory Lab Mobile Phlebotomy [facility] [address] [place] [address] Mvmg, Gml Mobile Home Draw [address] [place] [address] 08/29/2024 7:00 AM EST Laboratory Lab Mobile Phlebotomy [facility] [address] [place] [address] Mvmg, Gml Mobile Home Draw [address] [facility] [place] [address] 09/12/2024 7:00 AM EST Laboratory Lab Mobile Phlebotomy [facility] [address] [place] [address] Mvmg, Gml Mobile Home Draw [address] [place] [address] 09/26/2024 7:00 AM EST Laboratory Lab Mobile Phlebotomy [facility] [address] [place] [address] Mvmg, Gml Mobile Home Draw [address] [place] [address] Scheduled Orders Name Type Priority Associated Diagnoses Orde r Schedule VASC ANKLE 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 (PAD) Medical Imaging Routine Stasis ulcer of right lower extremity (HCC) Ordered: 02/07/2024 Health Maintenance Due Date Last Done Comments [...] 023, 03/08/2019, 04/09/2014 CKD PHOS USE SMARTSET 82902 12/07/202411/23, 12/26/2022, 06/21/2021 CKD HGB USE SMARTSET 42910 01/31/202501/31, 02/01/2024, 01/18/2024, Additional history exists COLONOSCOPY-EVERY [...] this encounter Medical Devices Implanted Type Area Gore Stitcher Device Identifier Shelf Expiration Date Model / Serial / Lot Lens Intraoc 22.5 - [id number] - [id number] Implanted:Qty: 1 on 05/22/2018 by Jasbir Maurer MD at OR [facility] Right: Eye [employer] 11/22/2022 [id number] / [id number] / [id number] Lens Intraoc 21.0 - [id number] - [id number] Implanted:Qty: 1 on 06/05/2018 by Jasbir Maurer MD at OR [facility] Left: Eye [employer]OM[employer] 12/20/2022 [id number] / [id number] / documented as of this encounter Visit Diagnoses Diagnosis Stasis ulcer of right lower extremity (HCC)- Primary documented in this encounter Advance [...] Care Power of Attor mayela Care Teams Pre K Special Education Teacher Relationship Specialty Start Date End Date Michael Hinton MD [address] [place] [address] PCP - General Family Medicine 08/07/17 documented as of this encounter
--- OUTSIDE RECORDS SUMMARY | 2024-03-01 06:26 | External Medical Summary | Summary of Care ---
Author Name Unknown Organization [facility] Address [address] [place] [address] Phone [phone] Care Team Providers Care Patient Scheduler Name Role Phone Michael Hinton MD Primary Care Provider [phone] Reason for Referral * Ancillary Services (Within 30 days (routine)) - Authorized Specialty Diagnoses / Procedures Referred By Bahman akhtar Referred To Contact Audiology Diagnoses Other specified hearing loss of both ears Michael Hinton MD [address] [place] [id number] Referral ID Status Reason Start Date Expiration Date Visits Requested Visits Authorized [id number] Authorized Ancillary Services Required 02/06/2024 999 999 Question Answer Referral Priority Within 30 days (routine) Where should this appointment be scheduled? [place] Reason for Referral: Hearing Loss Is this sudden hearing loss or post chemotherapy hearing loss? No Reason for Visit * Reason Onset Date Comments Referral 01/31/2024 Encounter Details Date Type Department Care Team (Late st Contact Info) Description 01/31/2024 Telephone Family Practice [facility] [address] [facility] [place] [address] Michael Hinton MD [address] [employer] [facility] [place] [address] Referral Allergies Active Allergy Reactions Criticality Noted Date Comments Fabiano Inhibitors Cough 06/09/2017 Carbidopa W-Levodopa 03/17/2021 Constipation Nsaids Rash 05/17/2018 Contraindicated per flight teacher documented as of this encounter (statuses [...] mitral valve regurgitation,Krista nary artery disease involving [place] coronary artery of [place] heart without angina pectoris,Paroxysma l atrial fibrillation [...] Last Assessment & Plan: Followed closely by [facility] hematology. No identified cause of [...] knees 03/21/2018 Coronary artery disease invo lving [place] coronary artery of [place] heart without angina pectoris 03/21/2018 Last Assessment [...] document from 11/13/[address] [place] [facility] [place] Coronary artery disease [...] mRNA, LNP-s, No Pre serve, 2-Dose Series (Apiary) 11/03/2021,12/19/2020,11/28/2020 Covid-19 Ad26, Single Dose (Rebit/J&J) 12/19/2020,11/28/2020 DTaP Dipth/Tet/Acell Pertussis (Infanrix), Peds 10/24/2019 [...] Encounter - Pricila Hernadez LPN - 02/06/2024 11:17 AM EDT Please fax referral per request. * Telephone Encounter - Michael Hinton MD - 02/04/2024 8:47 PM EDT Ill sign any referrals. They just need put in and queued up to sign. * Telephone Encounter - Petra Poon LPN - 01/31/2024 5:39 PM EDT Looks like pt is [facility], does referrals need to come from them?? Multiple referrals needed. * Telephone Encounter - Lisa Castrejon OSA - 01/31/2024 3:38 PM EDT Has the patient been seen for this problem? (Y/N)?: yes If No, an appt needs to be scheduled before a referral will be placed (exception: proceed with referral request if referral request is for a yearly routine appointment with speciality) Patient Name: Jesus Jose Patient Primary care provider: Michael Hinton MD Does this need to be an insurance referral (Y/N)?: yes If Yes, does the insurance referral need to be placed into the [employer] system? Name of preferred specialist: Dr Perez Type of specialist: Audiology Location of specialist: [facility] Phone #: [phone] opt 1 Specialist's Fax #: [phone] Reason for visit: renew referral Date of visit: 03/04/24 documented in this encounter Plan of Treatment Upcoming Encounters Date Type Department Care Team (Late st Contact Info) Description 02/12/2024 5:30 PM EDT [facility], [address] [place] [address] Peggy De, RN 132 [facility] [place] [address] 02/15/2024 7:05 AM EDT Laboratory Lab Mobile Phlebotomy [facility] [address] [facility] [place] [address] Mvmg, G[facility] [address] [facility] [place] [address] 02/26/2024 12:30 PM EDT Nurse Only Ancillary [facility] [address] [facility] [place] [address] 02/29/2024 7:05 AM EDT Laboratory Lab Mobile Phlebotomy [facility] [address] [facility] [place] [address] Mvmg, Gml [facility] Draw [address] [facility] [place] [address] 03/11/2024 3:15 PM EDT Office Visit Urology, [facility] 132 [facility] [place] [address] Kalpesh Funes MD [address] [place] [address] [place] [address] 03/14/2024 7:05 AM EDT Laboratory Lab Mobile Phlebotomy [facility] [address] [facility] [place] [address] Mvmg, Gml [facility] Draw [address] [facility] [place] [address] 03/14/2024 3:00 PM EDT [facility] Visit [facility] 132 [facility] [place] [address] Berny Power PA-C 132 [facility] [place] [address] 03/22/2024 3:00 PM EDT Office Visit Nephrology, [address] [place], [place] [address] ZemaNataly johnson PA-C 200 [facility] [place], [place] [address] 03/28/2024 7:00 AM EDT Laboratory Lab Mobile Phlebotomy [facility] [address] [employer] [place], [place] [address] Mvmg, Gml Mobile Home Draw [address] [facility] [place], [place] [address] 04/11/2024 7:00 AM EDT Laboratory Lab Mobile Phlebotomy [facility] [address] [employer] [place], [place] [address] Mvmg, Gml Mobile Home Draw [address] [employer] [place], [place] [address] 04/24/2024 7:00 AM EDT Laboratory Lab Mobile Phlebotomy [facility] [address] [place] [address] Mvmg, Gml Mobile Home Draw [address] [place] [address] 05/09/2024 7:00 AM EDT Laboratory Lab Mobile Phlebotomy [facility] [address] [employer] [facility] [place] [address] Mvmg, Gml Mobile Home Draw [address] [employer] [place], [place] [address] 05/23/2024 7:00 AM EDT Laboratory Lab Mobile Phlebotomy [facility] [address] [place] [address] Mvmg, Gml Mobile Home Draw [address] [place] [address] 06/06/2024 7:00 AM EDT Laboratory Lab Mobile Phlebotomy [facility] [address] [employer] [place], [place] [address] Mvmg, Gml Mobile Home Draw [address] [employer] [place], [place] [address] 06/20/2024 7:00 AM EDT Laboratory Lab Mobile Phlebotomy [facility] [address] [place] [address] Mvmg, Gml [facility] Draw [address] [place] [address] 07/04/2024 7:00 AM EDT Laboratory Lab Mobile Phlebotomy [facility] [address] [place] [address] Mvmg, Gml [facility] Draw [address] [place] [address] 07/18/2024 7:00 AM EDT Laboratory Lab Mobile Phlebotomy [facility] [address] [place] [address] Mvmg, Gml [facility] Draw [address] [place] [address] 08/01/2024 7:00 AM EDT Laboratory Lab Mobile Phlebotomy [facility] [address] [place] [address] Mvmg, Gml [facility] Draw [address] [place] [address] 08/15/2024 7:00 AM EDT Laboratory Lab Mobile Phlebotomy [facility] [address] [place] [address] Mvmg, Gml Mobile Home Draw [address] [place] [address] 08/29/2024 7:00 AM EST Laboratory Lab Mobile Phlebotomy [facility] [address] [place] [address] Mvmg, Gml Mobile Home Draw [address] [place] [address] 09/12/2024 7:00 AM EST Laboratory Lab Mobile Phlebotomy [facility] [address] [place] [address] Mvmg, Gml Mobile Home Draw [address] [place] [address] 09/26/2024 7:00 AM EST Laboratory Lab Mobile Phlebotomy [facility] [address] [place] [address] Mvmg, Gml Mobile Home Draw [address] [place] [address] Scheduled Referrals Name Type Priority Associated Diagnoses Orde r Schedule AUDIOLOGY REFERRAL OP Referral Within 30 days (routine) Other specified hearing loss of both ears Ordered: 02/06/2024 Health Maintenance Due Date Last [...] 023, 03/08/2019, 04/09/2014 CKD PHOS USE SMARTSET 10248 12/07/202411/23, 12/26/2022, 06/21/2021 CKD HGB USE SMARTSET 97540 01/31/202501/31, 02/01/2024, 01/18/2024, Additional history exists COLONOSCOPY-EVERY [...] this encounter Medical Devices Implanted Type Area Stretcher Drier Operator Device Identifier Shelf Expiration Date Model / Serial / Lot Lens Intraoc 22.5 - [id number] - [id number] Implanted:Qty: 1 on 05/22/2018 by Jasbir Maurer MD at [facility] Right: Eye [employer] 11/22/2022 [id number] / [id number] / [id number] Lens Intraoc 21.0 - [id number] - [id number] Implanted:Qty: 1 on 06/05/2018 by Jasbir Maurer MD at [place] [facility] Left: Eye [employer] 12/20/2022 [id number] / [id number] / documented as of this encounter Visit Diagnoses Diagnosis Other specified hearing loss of both ears- Primary documented in this encounter Advance Directives [...] Care Power of Attor mayela Care Teams Patient Scheduler Relationship Specialty Start Date End Date Michael Hinton MD 132 [place] [address] PCP - General Family Medicine 08/07/17 documented as of this encounter
--- OUTSIDE RECORDS SUMMARY | 2024-03-01 06:27 | External Medical Summary | Summary of Care ---
Author Name Unknown Organization [facility] Address [address] [place] [address] Phone [phone] Care Team Providers Care Spray Painter Helper Name Role Phone Michael Hinton MD Primary Care Provider [phone] Reason for Visit * Reason Comments [facility]: Maintenance Encounter Details Date Type Department Care Team (Late st Contact Info) Description 02/06/2024 8:30 AM EDT Home Visit [facility], [facility] [address] [place] [address] Peggy De, RN [address] [place] [address] Allergies Active Allergy Reactions Criticality Noted Date Comments Fabiano Inhibitors Cough 06/09/2017 Carbidopa W-Levodopa 03/17/2021 Constipation Nsaids Rash 05/17/2018 Contraindicated per fitness leader documented as of this encounter (statuses as of 02/06/2024) Medications Medication Sig Dispensed Refills Start Date End Date Status Glucose Blood (ONETOUCH VERIO) STRPIndications:Ty pe 2 diabetes mellitus with hemoglobin A1c goal of less than 8.0% ([facility]) Use up to 4 times [...] mitral valve regurgitation,Krista nary artery disease involving [place] coronary artery of [place] heart without angina pectoris,Paroxysma l atrial fibrillation [...] Last Assessment & Plan: Followed closely by [facility] hematology. No identified cause of [...] knees 03/21/2018 Coronary artery disease invo lving [place] coronary artery of [place] heart without angina pectoris 03/21/2018 Last Assessment [...] [place]13/[address] [place] [facility] [place] [...] Series (Pfizer) 11/03/2021,12/19/2020,11/28/2020 Covid-19 Ad26, Single Dose (The Networking Effect/J&J) 12/19/2020,11/28/2020 DTaP Dipth/Tet/Acell Pertussis (Infanrix), Peds 10/24/2019 [...] Sign Reading Time Taken Comments Blood Pressure 118/64 02/06/2024 9:21 AM EDT Pulse 62 02/06/2024 9:21 AM EDT Temperature 36.6 C (97.9 F) 02/06/2024 9:21 AM ED T Respiratory Rate 18 02/06/2024 9:21 AM EDT Oxygen Saturation 98% 02/06/2024 9:21 AM EDT Inhaled Oxygen Concentration - - Weight 75.9 kg (167 lb 6.4 oz) 02/06/2024 9:21 A M EDT Height - - Body Mass Index 27.86 12/01/2022 10:58 AM EST documented in this encounter Progress Notes * Peggy De RN - 02/06/2024 7:23 AM EDT Images from the original note were not included. [facility] Home Picture Copyist Visit Date: 02/06/2024 Time: 8:23 AM Name: Jesus Jose : 1945 Current Concerns: Pt seen for return RNCM visit Home Health had been ordered for management of leg wounds but /pt had not heard from any HH The referral was faxed to [facility] but they did not receive it so intake re faxed and they did accept with a SOC date for 02/11 Pt went to case operator last week and it was mentioned that possible wounds not healing d/t circulation, ? PAD? Last NURYS was done in 2018 and shows normal flow at that time but reports he was not having these issues then TE sent to provider Berny Power PA-C, regarding further testing as pt and family interested in having this done. Current treatment of triple abx ointment is ineffective ordered Silver alginate dressing on [employer] and is scheduled to come in 2 days She is going to use that daily and wrap, after cleansing, until HH comes Physical Exam: BP 118/64 | Pulse 62 | Temp 36.6 C (97.9 F) | Resp 18 | Wt 75.9 kg (167 lb 6.4 oz) | SpO2 98% |BMI 27.86 kg/m | BSA 1.87 m Pain 0 Physical Exam Constitutional: General: He is not in acute distress. Cardiovascular: Rate and Rhythm: Normal rate. Rhythm irregular. Pulses: Normal pulses. Heart sounds: Normal heart sounds. Pulmonary: Effort: Pulmonary effort is normal. Breath sounds: Normal breath sounds. Abdominal: Palpations: Abdomen is soft. Musculoskeletal: Right lower leg: Edema (+1) present. Left lower leg: Edema (trace) present. Skin: General: Skin is warm and dry. Neurological: Mental Status: He is alert and oriented to person, place, and time. Comments: forgetful Problems/Symptoms: Review of Systems Constitutional: Negative. HENT: Negative. Eyes: Negative. Respiratory: Positive for shortness of breath (MUSTAFA - at baseline). Cardiovascular: Positive for leg swelling. Gastrointestinal: Negative. Genitourinary: Negative. Musculoskeletal: Positive for arthralgias and gait problem. Skin: Positive for wound (2 wounds anterior RLE). Neurological: Positive for numbness (BLE -mild). Psychiatric/Behavioral: Positive for confusion (mild, intermittent). Poor memory Medication Reconciliation: (See medication list) Does patient take medications as ordered: Yes Patient Well Being: PHQ2/9: No questionnaires available. No change in living situation Denies falls MAH-10 Completed this Visit: No. Routine visit and No falls since last visit Advanced Care Planning: No documentation, acp on file. Reinforcement/Education: Educated on home safety: Create a [...] Scales ordered 02/28/23 Dry Wt as of 12/04/23 : 165 lbs Pt to have biweekly labs done to monitor anemia - per Dr. Mcclellan/[place] Chun of [facility] heme/onc O2 2lnc [facility] - [phone], wear at hs and during day in recliner (naps frequently) Fall precautions-use walker at all time Elevate bilateral LE when sitting in recliner Tubigrip to LE's daily Low Na diet, High protein, low sugar diet Silver alginate daily to RLE wounds, cover with 4x4 and kerlix daily and as needed HH to start 02/11 for wound management TE sent to Bakari Power for possible NURYS's/vascular referral Home Interventions Provided: Home Intervention: Wound Care and Other; eval Reinforced current Plan of Care, including self-management and medication regimen Patient's 'Red Flags': Wt gain of 3 lbs in 24 hrs or 5 lbs in one week Increased edema/open wounds Increased MUSTAFA Patient Needs to Remember: Call [facility] at with any new or worsening health concerns or problems, red flag symptoms. Referrals Needed: Other none Follow Up: Is there cellular connectivity/connectivity in the home? Yes Does the patient have internet in the home? Yes Patient encouraged to call the intake phone number for all urgent but not emergent issues. Is the patient new to [facility] within the last 30 days? No, Assess appropriateness for upcoming telehealth visits. Cancel telehealth visits & schedule home visit with care user experience team lead(s)as indicated. Provider is in agreement with Plan of Care: Yes Scheduled to follow up with patient in 1-2 weeks. Peggy De RN 02/06/2024 8:23 AM documented in this encounter Plan of Treatment Upcoming Encounters Date Type Department Care Team (Late st Contact Info) Description 02/12/2024 5:30 PM EDT [facility] [address] [place] [address] Peggy De RN 132 [place] [address] 02/15/2024 7:05 AM EDT Laboratory Lab Mobile Phlebotomy [facility] [address] [employer] [place] [address] Mvmg, Gml Mobile Home Draw [address] [employer] [place] [address] 02/26/2024 12:30 PM EDT Nurse Only Ancillary [facility] [address] [place], Nurse Annual Wellness [facility] [address] [facility] [address] 02/29/2024 7:05 AM EDT Laboratory Lab Mobile Phlebotomy M[facility] [address] [employer] [place] [address] Mvmg, Gml Mobile Home Draw [address] [facility] [place] [address] 03/11/2024 3:15 PM EDT [facility] [address] [facility] [place] [address] Kalpesh Funes MD [address] [place] [address] [place] [address] 03/14/2024 7:05 AM EDT Laboratory Lab Mobile Phlebotomy M[facility] [address] [place] [address] Mvmg, Gml Mobile Home Draw [address] [facility] [place] [address] 03/14/2024 3:00 PM EDT [facility] Visit [facility] 132 [facility] [place] [address] Berny Power PA-C 132 [facility] [place] [address] 03/22/2024 3:00 PM EDT Office Visit Nephrology, [address] [place] [address] Nataly Stone PA-C [address] [place] [address] 03/28/2024 7:00 AM EDT Laboratory Lab Mobile Phlebotomy MVM[facility] [address] [facility] [place] [address] Mvmg, Gml Mobile Home Draw [address] [facility] [place] [address] 04/11/2024 7:00 AM EDT Laboratory Lab Mobile Phlebotomy MVM[facility] [address] [facility] [place] [address] Mvmg, Gml Mobile Home Draw [address] [facility] [place] [address] 04/24/2024 7:00 AM EDT Laboratory Lab Mobile Phlebotomy MVMG 2520 [facility] [place] [address] Mvmg, Gml Mobile Home Draw 25[address] [facility] [place] [address] 05/09/2024 7:00 AM EDT Laboratory Lab Mobile Phlebotomy MVMG [address] [facility] [place] [address] Mvmg, Gml Mobile Home Draw [address] [facility] [place] [address] 05/23/2024 7:00 AM EDT Laboratory Lab Mobile Phlebotomy M[facility] [address] [facility] [place] [address] Mvmg, Gml Mobile Home Draw 25[address] [facility] [place] [address] 06/06/2024 7:00 AM EDT Laboratory Lab Mobile Phlebotomy MVMG [address] [facility] [place] [address] Mvmg, Gml Mobile Home Draw 25[address] [facility] [place] [address] 06/20/2024 7:00 AM EDT Laboratory Lab Mobile Phlebotomy MVMG [address] [facility] [place] [address] Mvmg, Gml Mobile Home Draw [address] [facility] [place] [address] 07/04/2024 7:00 AM EDT Laboratory Lab Mobile Phlebotomy MVMG [address] [facility] [place] [address] Mvmg, Gml Mobile Home Draw [address] [place] [address] 07/18/2024 7:00 AM EDT Laboratory Lab Mobile Phlebotomy M[facility] [address] [place] [address] Mvmg, Gml Mobile Home Draw [address] [place] [address] 08/01/2024 7:00 AM EDT Laboratory Lab Mobile Phlebotomy M[facility] [address] [place] [address] Mvmg, Gml Mobile Home Draw [address] [place] [address] 08/15/2024 7:00 AM EDT Laboratory Lab Mobile Phlebotomy [facility] [address] [place] [address] Mvmg, Gml Mobile Home Draw [address] [place] [address] 08/29/2024 7:00 AM EST Laboratory Lab Mobile Phlebotomy M[facility] [address] [place] [address] Mvmg, Gml Mobile Home Draw [address] [place] [address] 09/12/2024 7:00 AM EST Laboratory Lab Mobile Phlebotomy M[facility] [address] [place] [address] Mvmg, Gml Mobile Home Draw [address] [place] [address] 09/26/2024 7:00 AM EST Laboratory Lab Mobile Phlebotomy M[facility] [address] [place] [address] Mvmg, Gml Mobile Home Draw [address] [place] [address] Health Maintenance Due Date Last Done Comments [...] 023, 03/08/2019, 04/09/2014 CKD PHOS USE SMARTSET 25829 12/07/202411/23, 12/26/2022, 06/21/2021 CKD HGB USE SMARTSET 28161 01/31/202501/31, 02/01/2024, 01/18/2024, Additional history exists COLONOSCOPY-EVERY [...] this encounter Medical Devices Implanted Type Area Commissary Clerk Device Identifier Shelf Expiration Date Model / Serial / Lot Lens Intraoc 22.5 - [id number] - [id number] Implanted:Qty: 1 on 05/22/2018 by Jasbir Maurer MD at [place] [facility] Right: Eye [employer] 11/22/2022 [id number] / [id number] / [id number] Lens Intraoc 21.0 - [id number] - [id number] Implanted:Qty: 1 on 06/05/2018 by Jasbir Maurer MD at [facility] Left: Eye [employer] 12/20/2022 [id number] / [id number] / documented as of this encounter Advance [...] Agents on File Name Relationship Healthcare Agent [facility] Ashley Jose Spouse Health Care Power of Attor mcdowell Care Teams Spray Painter Helper Relationship Specialty Start Date End Date Michael Hinton MD [address] [place] [address] PCP - General Family Medicine 08/07/17 documented as of this encounter
--- OUTSIDE RECORDS SUMMARY | 2024-03-01 06:27 | External Medical Summary | Summary of Care ---
Author Name Unknown Organization [facility] Address [address] [place] [address] Phone [phone] Care Team Providers Care [employer] Art Teacher Name Role Phone Michael Hinton MD Primary Care Provider [phone] Reason for Visit * Reason Comments Medication Refill Encounter Details Date Type Department Care Team (Late st Contact Info) Description 02/01/2024 Refill Dermatology [facility] [address] [place] [address] Yasmeen Morales MD [address] [place] [address] Inflamed seborrheic keratosis Allergies Active Allergy Reactions Criticality Noted Date Comments Fabiano Inhibitors Cough 06/09/2017 Carbidopa W-Levodopa 03/17/2021 Constipation Nsaids Rash 05/17/2018 Contraindicated per underwear welter documented as of this encounter (statuses as of 02/01/2024) Medications Medication Sig Dispensed Refills Start Date [...] MOUTH EVERY MORNING 90 Tablet 3 03/21/2023 03/20/2024 Active Amantadine HCl 100 MG Oral Capsule (Symmetrel) TAKE ONE CAPSULE BY MOUTH EVERY DAY WITH LUNCH 90 Capsule 3 02/16/2023 03/23/2024 Active Donepezil HCl 10 MG Oral Tablet (Aricept) TAKE ONE TABLET BY MOUTH EVERY DAY IN THE EVENING 90 Tablet 3 02/16/2023 02/16/2024 Active Escitalopram Oxalate 20 MG Oral Tablet [...] mitral valve regurgitation,Krista nary artery disease involving [place] coronary artery of [place] heart without angina pectoris,Paroxysma l atrial fibrillation [...] as of this encounter (statuses as of 02/01/2024) Active Problems Problem Noted Date Diagnosed Date [...] Last Assessment & Plan: Followed closely by [facility] hematology. No identified cause of HUNTER. Weekly [...] knees 03/21/2018 Coronary artery disease invo lving [place] coronary artery of [place] heart without angina pectoris 03/21/2018 Last Assessment [...] as of this encounter (statuses as of 02/01/2024) Resolved Problems Problem Noted Date Diagnosed Date [...] as of this encounter (statuses as of 02/01/2024) Immunizations Name Administration Dates Next Due COVID-19 mRNA, LNP-s, No Pre serve, 2-Dose Series ([facility]) 11/03/2021,12/19/2020,11/28/2020 Covid-19 Ad26, Single Dose (Soy/J&J) 12/19/2020,11/28/2020 [...] encounter Miscellaneous Notes * Telephone Encounter - Jeanette Lozoya PA-C - 02/01/2024 9:39 AM EDT Refused Prescriptions: Disp Refills Betamethasone Dipropionate 0.05 % External*45 g 2 Sig: APPLY TO SKIN LESIONS AND SCALP LESIONS UP TO TWO TIMES A DAY FOR NO LONGER THAN 2 WEEKS AT A TIME FOR ITCH. (THEN TAKE A 2 WEEK BREAK) Refused By: JEANETTE LOZOYA Reason for Refusal: Too soon * Telephone Encounter - Marla Kulkarni LPN - 02/01/2024 8:58 AM EDTPending Prescriptions: Disp Refills Betamethasone Dipropionate [...] Description 02/12/2024 5:30 PM EDT Home Visit [facility] [address] [place] [address] Peggy De RN 132 [facility] [place] [address] 02/15/2024 7:05 AM EDT Laboratory Lab Mobile Phlebotomy [facility] [address] [facility] [place] [address] Mvmg, [facility] Mobile Home Draw [address] [facility] [place] [address] 02/26/2024 12:30 PM EDT Nurse Only Ancillary [facility] 132 [facility] [place] [address] [facility], Nurse Annual Wellness [facility] 132 [facility] [place] [address] 02/29/2024 7:05 AM EDT Laboratory Lab Mobile Phlebotomy [facility] [address] [facility] [place] [address] Mvmg, [facility] Mobile Home Draw [address] [facility] [place] [address] 03/11/2024 3:15 PM EDT Office Visit Urology, [facility] [address] [place] [address] Kalpesh Funes MD [address] [address] [place] [address] 03/14/2024 7:05 AM EDT Laboratory Lab Mobile Phlebotomy MVMG [address] [place], [place] [address] Mvmg, [facility] Mobile Home Draw [address] [place], [place] [address] 03/14/2024 3:00 PM EDT [facility] Visit [facility], [facility] [address] [place] [address] Berny Power PA-C [address] [place] [address] 03/22/2024 3:00 PM EDT Office Visit Nephrology, [facility] 200 [facility] [place], [place] [address] ZeNataly bailey PAKittyC 200 [facility] [place], [place] [address] 03/28/2024 7:00 AM EDT Laboratory Lab Mobile Phlebotomy MVMG [address] [place], [place] [address] Mvmg, G[facility] Mobile Home Draw [address] [place], [place] [address] 04/11/2024 7:00 AM EDT Laboratory Lab Mobile Phlebotomy MVMG [address] [place], [place] [address] Mvmg, Gml Mobile Home Draw [address] [place], [place] [address] 04/24/2024 7:00 AM EDT Laboratory Lab Mobile Phlebotomy MVMG [address] [employer], [place] [address] Mvmg, Gml Mobile Home Draw [address] [employer], [place] [address] 05/09/2024 7:00 AM EDT Laboratory Lab Mobile Phlebotomy MVMG [address] [place], [place] [address] Mvmg, Gml Mobile Home Draw [address] [address] 05/23/2024 7:00 AM EDT Laboratory Lab Mobile Phlebotomy MVMG [address] [place] [address] Mvmg, Gml Mobile Home Draw [address] [place] [address] 06/06/2024 7:00 AM EDT Laboratory Lab Mobile Phlebotomy MVMG [address] [place] [address] Mvmg, Gml Mobile Home Draw [address]20 [place] [address] 06/20/2024 7:00 AM EDT Laboratory Lab Mobile Phlebotomy MVMG [address] [place] [address] Mvmg, Gml Mobile Home Draw [address] [place] [address] 07/04/2024 7:00 AM EDT Laboratory Lab Mobile Phlebotomy MVMG [address] [place] [address] Mvmg, Gml Mobile Home Draw [address] [place] [address] 07/18/2024 7:00 AM EDT Laboratory Lab Mobile Phlebotomy MVMG [address] [place] [address] Mvmg, Gml Mobile Home Draw [address] [place] [address] 08/01/2024 7:00 AM EDT Laboratory Lab Mobile Phlebotomy MVMG [address] [place] [address] Mvmg, Gml Mobile Home Draw [address] [place] [address] 08/15/2024 7:00 AM EDT Laboratory Lab Mobile Phlebotomy MVMG [address] [place] [address] Mvmg, Gml Mobile Home Draw [address] [place] [address] 08/29/2024 7:00 AM EST Laboratory Lab Mobile Phlebotomy MVMG [address] [place] [address] Mvmg, Gml Mobile Home Draw [address] [place] [address] 09/12/2024 7:00 AM EST Laboratory Lab Mobile Phlebotomy MVMG [address] [facility] [place], [place] [address] Mvmg, Gml Mobile Home Draw [address] [place] [address] 09/26/2024 7:00 AM EST Laboratory Lab Mobile Phlebotomy MVMG [address] [place] [address] Mvmg, Gml Mobile Home Draw [address] [facility] [place], [place] [address] Health Maintenance Due Date Last Done Comments [...] 023, 03/08/2019, 04/09/2014 CKD PHOS USE SMARTSET 07112 12/07/202411/23, 12/26/2022, 06/21/2021 CKD HGB USE SMARTSET 02870 01/17/202501/17, 01/18/2024, 01/04/2024, Additional history exists COLONOSCOPY-EVERY 3 YRS AGES [...] this encounter Medical Devices Implanted Type Area Orthopaedic Technologist Device Identifier Shelf Expiration Date Model / Serial / Lot Lens Intraoc 22.5 - [id number] - [id number] Implanted:Qty: 1 on 05/22/2018 by Jasbir Maurer MD at OR [facility] Right: Eye [employer]CH [employer] LOMB 11/22/2022 [id number] / [id number] / [id number] Lens Intraoc 21.0 - [id number] - [id number] Implanted:Qty: 1 on 06/05/2018 by Jasbir Maurer MD at OR [facility] Left: Eye BAUSCH & LOMB 12/20/2022 [id number] / [id number] / documented as of this encounter Visit [...] Care Power of Attor mayela Care Teams [employer] Art Teacher Relationship Specialty Start Date End Date Michael Hinton MD [address] [place] [address] PCP - General Family Medicine 08/07/17 documented as of this encounter
--- OUTSIDE RECORDS SUMMARY | 2024-03-01 06:27 | External Medical Summary | Summary of Care ---
Author Name Unknown Organization [facility] Address [address] [place] [address] Phone [phone] Care Team Providers Care Network Programmer Name Role Phone Michael Hinton MD Primary Care Provider [phone] Reason for Visit * Reason Onset Date Comments [facility]: Maintenance 01/30/2024 Encounter Details Date Type Department Care Team (Late st Contact Info) Description 01/30/2024 Telephone [facility], [facility] [address] [facility] [place] [address] [facility], Nurse [facility] [address] [facility] [place] [address] [facility]: Maintenance Allergies Active Allergy Reactions Criticality Noted Date Comments Fabiano Inhibitors Cough 06/09/2017 Carbidopa W-Levodopa 03/17/2021 Constipation Nsaids Rash 05/17/2018 Contraindicated per learning administrator documented as of this encounter (statuses as of 01/30/2024) Medications Medication Sig Dispensed Refills Start Date End Date Status Glucose Blood (ONETOUCH VERIO) STRPIndications:Ty pe 2 diabetes mellitus with hemoglobin A1c goal of less than 8.0% ([facility]) Use up to 4 times [...] mitral valve regurgitation,Krista nary artery disease involving [place] coronary artery of [place] heart without angina pectoris,Paroxysma l atrial fibrillation [...] as of this encounter (statuses as of 01/30/2024) Active Problems Problem Noted Date Diagnosed Date [...] Last Assessment & Plan: Followed closely by [facility] hematology. No identified [...] knees 03/21/2018 Coronary artery disease invo lving [place] coronary artery of [place] heart without angina pectoris 03/21/2018 Last Assessment [...] as of this encounter (statuses as of 01/30/2024) Resolved Problems Problem Noted Date Diagnosed Date [...] as of this encounter (statuses as of 01/30/2024) Immunizations Name Administration Dates Next Due COVID-19 mRNA, LNP-s, No Pre serve, 2-Dose Series ([employer]) 11/03/2021,12/19/2020,11/28/2020 Covid-19 Ad26, Single Dose ([employer]/J&J) 12/19/2020,11/28/2020 DTaP Dipth/Tet/Acell Pertussis (Infanrix), Peds 10/24/2019 [...] Telephone Encounter - Karina Wynn LPN - 01/30/2024 9:35 AM EDT Images from the original note were not included. [facility] Remote Patient Monitoring Able to contact patient: Trigger type: Abnormal reading(s): AMC (Advanced Monitored Caregiving): Scale: Baseline weight: none lbs Trigger weight: 166.6 lbs; weight increased 6.4 lbs in 1 day(s) Trigger priority per AMC: high Patient takes diuretic medication: Yes, reviewed current diuretic use: Name of medication: Torsemide Dose: 40 mg Frequency: daily Symptom review: Asymptomatic in regard to fluid Diet Reviewed: Yes. Patient has had any foods high in sodium: No Fluid Intake Reviewed: Yes. Patient is on a fluid restriction: Yes, restriction amount in milliliters or liters: 2 Adherent to restriction: Yes Self-Management Plan Reviewed: Risk assignment recommendation: Moderate risk findings (check as applicable): [] Moderate trigger priority on AMC [] Confirmed tympanic equivalent temperature 100.4-101.9 F one hour post administration of antipyretic [x] Weight gain of 2.1-4.9 lbs over 1-2 days [] Confirmed new sustained resting HR greater than 105WITHOUT symptoms [] Weight gain of greater than or equal to 5 lbs in 5 days WITHOUT heart failure symptoms [] Confirmed new sustained resting HRT less than 60 WITHOUT symptoms [] Moderate heart failure symptoms [] Confirmed SBP less than 90 WITHOUT symptoms [] Moderate COPD symptoms [] Confirmed SBP greater than 170 WITHOUT symptoms [] Confirmed new SpO2 90-93% [] Confirmed DBP greater than 90 WITHOUT symptoms High risk findings (check as applicable): [] High trigger priority on AMC [] Confirmed tympanic equivalent temperature greater than or equal to 102 F on hour post administration of antipyretic [] Weight gain of greater than or equal to 5 lbs over 1-2 days [] Confirmed tympanic equivalent temperature less than 96 F [] Weight gain of greater than or equal to 5 lbs in 5 days WITH heart failure symptoms [] Confirmednew sustained resting HR greater than 105 WITH symptoms [] Severe heart failure symptoms [] Confirmed new sustained resting HR less than 60 WITH symptoms [] Severe COPD symptoms [] Confirmed SBP less than 90 WITH symptoms [] Confirmed new SpO2 less than 90% [] Confirmed SBP greater than 170 WITH symptoms [] Confirmed DBP greater than 90 WITH symptoms Additional risk selection justification: [facility] trigger for 6.4 lb weigh gain in one day Weight fluctuations noted Call to pt spoke with his She reports pt is ok Denies SOB, pt has O2 for night Denies CP,-cough, -increase in BLE, -ABD distention Taking diuretic as ordered Adhering to fluid restriction Pt's states pt is very unsteady on the scale due to his parkinson's doesn't like that he weighs himself when no one is around concerned he will fall States he get up early and wants to weigh so he can eat and doesn't wait for her. Will continue to monitor Instructed to call [facility] at [phone]# with any new or worsening symptoms Overall risk and identified plan: Moderate risk: Route to RNCM (Registered Nurse Ekg Tech) and Advance Practitioner documented in this encounter Plan of Treatment Upcoming Encounters Date Type Department Care Team (Late st Contact Info) Description 01/30/2024 3:00 PM EDT Scheduled Telephone [facility], [facility] 132 [facility] [place] [address] Coordinator, [facility] 132 [facility] [place] [address] 02/01/2024 7:05 AM EDT Laboratory Lab Mobile Phlebotomy MVMG [address] [facility] [place] [address] Mvmg, Gml Mobile Home Draw [address] [facility] [place] [address] 02/12/2024 5:30 PM EDT Home Visit [facility], [facility] 132 [facility] [place] [address] Peggy De RN 132 [facility] [place] [address] 02/15/2024 7:05 AM EDT Laboratory Lab Mobile Phlebotomy MVMG [address] [facility] [place] [address] Mvmg, Gml Mobile Home Draw [address] [facility] [place] [address] 02/26/2024 12:30 PM EDT Nurse Only Ancillary [facility] 132 [facility] [address] [facility], Nurse [facility] Wellness [facility] [address] [facility] [address] 02/29/2024 7:05 AM EDT Laboratory Lab Mobile Phlebotomy MVMG [address] [facility] [place] [address] Mvmg, Gml Mobile Home Draw [address] [facility] [place] [address] 03/11/2024 3:15 PM EDT Office Visit Urology, [facility] 132 [facility] [place] [address] Kalpesh Funes MD [address] [address] [place] [address] 03/14/2024 7:05 AM EDT Laboratory Lab Mobile Phlebotomy MVMG [address] [place], [place] [address] Mvmg, Gml Mobile Home Draw [address] [facility] [place], [place] [address] 03/14/2024 3:00 PM EDT Home Visit [facility], [facility] [address] [place] [address] Berny Power PA-C [address] [place] [address] 03/22/2024 3:00 PM EDT Office Visit Nephrology, [facility] 200 [facility] [place], [place] [address] ZemaitisNataly PAKittyC 200 [facility] [place], [place] [address] 03/28/2024 7:00 AM EDT Laboratory Lab Mobile Phlebotomy MVMG [address] [place], [place] [address] Mvmg, Gml Mobile Home Draw [address] [facility] [place], [place] [address] 04/11/2024 7:00 AM EDT Laboratory Lab Mobile Phlebotomy MVMG [address] [place], [place] [address] Mvmg, Gml Mobile Home Draw [address] [facility] [place], [place] [address] 04/24/2024 7:00 AM EDT Laboratory Lab Mobile Phlebotomy MVMG [address] [place], [place] [address] Mvmg, Gml Mobile Home Draw [address] [facility] [place], [place] [address] 05/09/2024 7:00 AM EDT Laboratory Lab Mobile Phlebotomy MVMG [address] [place], [place] [address] Mvmg, Gml Mobile Home Draw [address] [place] [address] 05/23/2024 7:00 AM EDT Laboratory Lab Mobile Phlebotomy MVMG [address] [facility] [place] [address] Mvmg, Gml Mobile Home Draw [address] [facility] [place] [address] 06/06/2024 7:00 AM EDT Laboratory Lab Mobile Phlebotomy MVMG [address] [employer] [address] Mvmg, Gml Mobile Home Draw [address] [facility] [place] [address] 06/20/2024 7:00 AM EDT Laboratory Lab Mobile Phlebotomy MVMG [address] [facility] [place] [address] Mvmg, Gml Mobile Home Draw [address] [facility] [place] [address] 07/04/2024 7:00 AM EDT Laboratory Lab Mobile Phlebotomy MVMG [address] [employer] [address] Mvmg, Gml Mobile Home Draw [address] [facility] [place] [address] 07/18/2024 7:00 AM EDT Laboratory Lab Mobile Phlebotomy MVMG [address] [facility] [place] [address] Mvmg, Gml Mobile Home Draw [address] [employer] [address] 08/01/2024 7:00 AM EDT Laboratory Lab Mobile Phlebotomy MVMG [address] [place] [address] Mvmg, Gml Mobile Home Draw [address] [facility] [place] [address] 08/15/2024 7:00 AM EDT Laboratory Lab Mobile Phlebotomy MVMG [address] [place] [address] Mvmg, Gml Mobile Home Draw [address] [employer] [address] 08/29/2024 7:00 AM EST Laboratory Lab Mobile Phlebotomy MVMG [address] [facility] [place] [address] Mvmg, Gml Mobile Home Draw [address] [facility] [place] [address] 09/12/2024 7:00 AM EST Laboratory Lab Mobile Phlebotomy MVMG [address] [facility] [place], [place] [address] Mvmg, Gml Mobile Home Draw [address] [facility] [place], [place] [address] 09/26/2024 7:00 AM EST Laboratory Lab Mobile Phlebotomy MVMG [address] [facility] [place], [place] [address] Mvmg, Gml Mobile Home Draw [address] [facility] [place], [place] [address] Health Maintenance Due Date Last Done Comments [...] 023, 03/08/2019, 04/09/2014 CKD PHOS USE SMARTSET 01222 12/07/202411/23, 12/26/2022, 06/21/2021 CKD HGB USE SMARTSET 82094 01/17/202501/17, 01/18/2024, 01/04/2024, Additional history exists COLONOSCOPY-EVERY [...] this encounter Medical Devices Implanted Type Area Thermal Intelligence Analyst Device Identifier Shelf Expiration Date Model / Serial / Lot Lens Intraoc 22.5 - [id number] - [id number] Implanted:Qty: 1 on 05/22/2018 by Jasbir Maurer MD at OR [facility] Right: Eye [employer] 11/22/2022 [id number] / [id number] / [id number] Lens Intraoc 21.0 - [id number] - [id number] Implanted:Qty: 1 on 06/05/2018 by Jasbir Maurer MD at OR [facility] Left: Eye BAUSCH & [employer]OMB 12/20/2022 [id number] / [id number] / documented as of this encounter Advance [...] Relationship Healthcare Agent Relationshi p Communication Ashley A Jose Spouse Health Care Power of Attor mayela Care Teams Network Programmer Relationship Specialty Start Date End Date Michael Hinton MD [address] [place] [address] PCP - General Family Medicine 08/07/17 documented as of this encounter
--- OUTSIDE RECORDS SUMMARY | 2024-03-01 06:27 | External Medical Summary ---
Author Name Unknown Address Unknown Organization K0G:LABORATORY [facility] [address] [place] [address] Laboratory Report Ordering Provider Test Date Status GUERRERO CHAUHAN 02/01/2024 10:24:00 Final Observation Date Value Abnormality Reference (Units ) Status WBC, Total 02/01/2024 10:24:00 5.28 4.00-10.8 0 (K/uL) Final RBC 02/01/2024 10:24:00 2.35 4.50-5.25 (M/uL) Final Hemoglobin 02/01/2024 10:24:00 8.1 Below low normal 14 .0-16.8 (g/dL) Final HCT 02/01/2024 10:24:00 25.7 Below low normal 40. 0-48.4 (%) Final MCV 02/01/2024 10:24:00 109.4 82.0-99.5 (fL) Final MCH 02/01/2024 10:24:00 34.5 27.0-34.0 (pg) Final MCHC 02/01/2024 10:24:00 31.5 32.0-36.0 (g/dL) Final RDW 02/01/2024 10:24:00 15.4 11.5-15.5 (%) Final Platelets 02/01/2024 10:24:00 154 140-400 (K /uL) Final MPV 02/01/2024 10:24:00 9.5 6.6-11.1 ( fL) Final Performing Location LAB[facility]ORY [facility] [address] [place] [address]
--- OUTSIDE RECORDS SUMMARY | 2024-03-01 06:27 | External Medical Summary | Summary of Care ---
Author Name Unknown Organization [facility] [address] [facility] [address] Phone [phone] Care Team Providers Care Video Production Specialist Name Role Phone Michael Hinton MD Primary Care Provider [phone] Reason for Visit * Reason Onset Date Comments [facility]: Maintenance 02/05/2024 Encounter Details Date Type Department Care Team (Late st Contact Info) Description 02/05/2024 Telephone [facility], [facility] [address] [facility] [place] [address] [facility], Nurse [facility] [address] [facility] [place] [address] [facility]: Maintenance Allergies Active Allergy Reactions Criticality Noted Date Comments Fabiano Inhibitors Cough 06/09/2017 Carbidopa W-Levodopa 03/17/2021 Constipation Nsaids Rash 05/17/2018 Contraindicated per hand iii cutter documented as of this encounter (statuses as of 02/05/2024) Medications Medication Sig Dispensed Refills Start Date End Date Status Glucose Blood (ONETOUCH VERIO) STRPIndications:Ty pe 2 diabetes mellitus with hemoglobin A1c goal of less than 8.0% ([facility]) Use up to 4 times [...] mitral valve regurgitation,Krista nary artery disease involving [place] coronary artery of [place] heart without angina pectoris,Paroxysma l atrial fibrillation [...] as of this encounter (statuses as of 02/05/2024) Active Problems Problem Noted Date Diagnosed Date [...] Last Assessment & Plan: Followed closely by [facility] hematology. No identified cause of [...] knees 03/21/2018 Coronary artery disease invo lving [place] [...] as of this encounter (statuses as of 02/05/2024) Resolved Problems Problem Noted Date Diagnosed Date [...] as of this encounter (statuses as of 02/05/2024) Immunizations Name Administration Dates Next Due COVID-19 mRNA, LNP-s, No Pre serve, 2-Dose Series ([employer]) 11/03/2021,12/19/2020,11/28/2020 Covid-19 Ad26, Single Dose (CO-Value/J&J) 12/19/2020,11/28/2020 DTaP Dipth/Tet/Acell Pertussis (Infanrix), Peds 10/24/2019 [...] encounter Miscellaneous Notes * Telephone Encounter - Jes Sanders RN - 02/05/2024 11:27 AM EDT Call received from the pt's Ashley. Calling for status update on HH referral placed on 01/24/24. Chart reviewed. Last documentation noted on 01/29/24 that the referral was faxed to [facility]. Call placed to [facility] spoke to Vaishnavi Perry. States that a referral was not received. Per [facility] able to accept pt with a start of care date 02/12/24. Faxed order, demographics and chart notes to [facility] at [phone] Home visit scheduled for tomorrow am with pt's GA LEONA Woods to evaluate pt's legs and for wound care management until SOC of HH. documented in this encounter Plan of Treatment Upcoming Encounters Date Type Department Care Team (Late st Contact Info) Description 02/06/2024 8:30 AM EDT [facility] Visit [facility], [facility] [address] [place] [address] Peggy De, RN [address] [place] [address] 02/12/2024 5:30 PM EDT Home Visit [facility], [facility] [address] [place] [address] Peggy De, RN [address] [place] [address] 02/15/2024 7:05 AM EDT Laboratory [facility] [address] [facility] [facility] [place] [address] M[facility], G[facility] Draw [address] [facility] [place] [address] 02/26/2024 12:30 PM EDT Nurse Only Ancillary [facility] [address] [facility], Nurse Annual Wellness [facility] [place] [address] 02/29/2024 7:05 AM EDT Laboratory Lab Mobile Phlebotomy [facility] [address] [facility] [place] [address] M[facility]mg, Gml [facility] Draw [address] [facility] [place] [address] 03/11/2024 3:15 PM EDT Office Visit Urology, [facility] 132 [facility] [place] [address] Kalpesh Funes MD 27 [facility] [address] [place] [address] 03/14/2024 7:05 AM EDT Laboratory Lab Mobile Phlebotomy [facility] [address] [place] [address] Mvmg, Gml Mobile Home Draw [address] [place] [address] 03/14/2024 3:00 PM EDT [facility] Visit [facility], [place] [facility] [address] [place] [address] Berny Power PA-C [address] [place] [address] 03/22/2024 3:00 PM EDT Office Visit Nephrology, [facility] 200 [facility] [place], [place] [address] ZemaNataly johnson PAKittyC 200 [facility] [place], [place] [address] 03/28/2024 7:00 AM EDT Laboratory Lab Mobile Phlebotomy [facility] [address] [place], [place] [address] Mvmg, Gml Mobile Home Draw [address] [place], [place] [address] 04/11/2024 7:00 AM EDT Laboratory Lab Mobile Phlebotomy [facility] [address] [place], [place] [address] Mvmg, Gml Mobile Home Draw [address] [place], [place] [address] 04/24/2024 7:00 AM EDT Laboratory Lab Mobile Phlebotomy [facility] [address] [place] [address] Mvmg, Gml Mobile Home Draw [address] [place] [address] 05/09/2024 7:00 AM EDT Laboratory Lab Mobile Phlebotomy [facility] [address] [place] [address] Mvmg, Gml Mobile Home Draw [address] [place], [place] [address] 05/23/2024 7:00 AM EDT Laboratory Lab Mobile Phlebotomy [facility] [address] [place], [place] [address] Mvmg, Gml Mobile Home Draw [address] [place] [address] 06/06/2024 7:00 AM EDT Laboratory Lab Mobile Phlebotomy [facility] [address] [facility] [place] [place] [address] Mvmg, Gml Mobile Home Draw [address] [facility] [place] [address] 06/20/2024 7:00 AM EDT Laboratory Lab Mobile Phlebotomy [facility] 2520 [place] [address] Mvmg, Gml Mobile Home Draw [address] [facility] [place] [address] 07/04/2024 7:00 AM EDT Laboratory Lab Mobile Phlebotomy [facility] [address] [facility] [place] [address] Mvmg, Gml Mobile Home Draw [address] [place] [address] 07/18/2024 7:00 AM EDT Laboratory Lab Mobile Phlebotomy [facility] [address] [place] [address] Mvmg, Gml Mobile Home Draw 2520 [facility] [place] [address] 08/01/2024 7:00 AM EDT Laboratory Lab Mobile Phlebotomy [facility] [address] [facility] [place] [address] Mvmg, Gml Mobile Home Draw [address] [place] [address] 08/15/2024 7:00 AM EDT Laboratory Lab Mobile Phlebotomy [facility] [address] [facility] [place] [address] Mvmg, Gml Mobile Home Draw [address] [facility] [place] [address] 08/29/2024 7:00 AM EST Laboratory Lab Mobile Phlebotomy [facility] [address] [facility] [place] [address] Mvmg, Gml Mobile Home Draw [address] [place] [address] 09/12/2024 7:00 AM EST Laboratory Lab Mobile Phlebotomy [facility] [address] [facility] [place], [place] [address] Mvmg, Gml Mobile Home Draw [address] [facility] [place] [address] 09/26/2024 7:00 AM EST Laboratory Lab Mobile Phlebotomy [facility] [address] [facility] [place] [address] Mvmg, Gml Mobile Home Draw [address] [facility] [place], [place] [address] Health Maintenance Due Date Last Done Comments [...] 023, 03/08/2019, 04/09/2014 CKD PHOS USE SMARTSET 70606 12/07/202411/23, 12/26/2022, 06/21/2021 CKD HGB USE SMARTSET 52400 01/31/202501/31, 02/01/2024, 01/18/2024, Additional history exists COLONOSCOPY-EVERY [...] this encounter Medical Devices Implanted Type Area Yard Truck Driver Device Identifier Shelf Expiration Date Model / Serial / Lot Lens Intraoc 22.5 - [id number] - [id number] Implanted:Qty: 1 on 05/22/2018 by Jasbir Maurer MD at OR [facility] Right: Eye [employer] 11/22/2022 [id number] / [id number] / [id number] Lens Intraoc 21.0 - [id number] - [id number] Implanted:Qty: 1 on 06/05/2018 by Jasbir Maurer MD at OR [facility] Left: Eye [employer]OMB 12/20/2022 [id number] / [id number] / documented as of this encounter Advance [...] Power of Attor mayela Care Teams Video Production Specialist Relationship Specialty Start Date End Date Michael Hinton MD [address] [place] [address] PCP - General Family Medicine 08/07/17 documented as of this encounter
--- OUTSIDE RECORDS SUMMARY | 2024-03-01 06:27 | External Medical Summary | Summary of Care ---
Author Name Unknown Organization [facility] Address [address] [facility] [address] Phone [phone] Care Team Providers Care Marine Engine Driver Name Role Phone Michael Hinton MD Primary Care Provider [phone] Reason for Visit * Reason Onset Date Comments [facility]: Maintenance 01/30/2024 Encounter Details Date Type Department Care Team (Latest Contact Info) Description 01/30/2024 3:00 PM EDT Scheduled Telephone [facility], [facility] 132 [facility] [place] [address] Coordinator, [facility] 132 [facility] [place] [address] Canceled (Clinician Appointment Cancel Rescheduled at later date) Allergies Active Allergy Reactions Criticality Noted Date Comments Fabiano Inhibitors Cough 06/09/2017 Carbidopa W-Levodopa 03/17/2021 Constipation Nsaids Rash 05/17/2018 Contraindicated per crop pest control specialist documented as of this encounter (statuses [...] mitral valve regurgitation,Krista nary artery disease involving [place] coronary artery of [place] heart without angina pectoris,Paroxysma l atrial fibrillation [...] knees 03/21/2018 Coronary artery disease invo lving [place] coronary artery of [place] heart without angina pectoris 03/21/2018 Last Assessment [...] mRNA, LNP-s, No Pre serve, 2-Dose Series (in[employer]ica) 11/03/2021,12/19/2020,11/28/2020 Covid-19 Ad26, Single Dose ([employer]/J&J) 12/19/2020,11/28/2020 DTaP Dipth/Tet/Acell Pertussis (Infanrix), Peds 10/24/2019 [...] encounter Miscellaneous Notes * Telephone Encounter - Shannon Aparicio Community Health Development Manager - 01/30/2024 11:25 AM EDT Called bob HAHN [phone], LMOVM with Pt information and advised to call with an update regarding HH. documented in this encounter Plan of Treatment Upcoming Encounters Date Type Department Care Team (Late st Contact Info) Description 02/01/2024 7:05 AM EDT Laboratory Lab Mobile Phlebotomy [facility] [address] [place] [address] Mvmg, Gml Mobile Home Draw [address] [place] [address] 02/01/2024 9:30 AM EDT Scheduled Telephone [facility] [place], [address] [place] [address] [facility] [address] [place] [address] 02/12/2024 5:30 PM EDT [facility] Visit [facility], [facility] [address] [place] [address] Peggy De RN 132 [place] [address] 02/15/2024 7:05 AM EDT Laboratory Lab Mobile Phlebotomy [facility] [address] [facility] [place] [address] Mvmg, Gml Mobile Home Draw 2520 [facility] [place] [address] 02/26/2024 12:30 PM EDT Nurse Only Ancillary [facility] 132 [place] [address] [facility], Nurse Annual Wellness [facility] [address] 02/29/2024 7:05 AM EDT Laboratory Lab Mobile Phlebotomy [facility] 2520 [facility] [place] [address] Mvmg, Gml Mobile Home Draw 2520 [facility] [place] [address] 03/11/2024 3:15 PM EDT Office Visit Urology, [facility] 132 [facility] [place] [address] Kalpesh Funes MD [address] [address] [place] [address] 03/14/2024 7:05 AM EDT Laboratory Lab Mobile Phlebotomy [facility] [address] [employer] [place] [address] Mvmg, Gml Mobile Home Draw 2520 [facility] [place] [address] 03/14/2024 3:00 PM EDT [facility] Visit [facility], [place] [facility] [address] [place] [address] Berny Power PA-C [address] [place] [address] 03/22/2024 3:00 PM EDT Office Visit Nephrology, [address] [place], [place] [address] ZemaitisNataly PA-C 200 [facility] [place], [place] [address] 03/28/2024 7:00 AM EDT Laboratory Lab Mobile Phlebotomy [facility] [address] [employer] [place], [place] [address] Mvmg, Gml Mobile Home Draw [address] [employer] [place], [place] [address] 04/11/2024 7:00 AM EDT Laboratory Lab Mobile Phlebotomy [facility] [address] [employer] [place], [place] [address] Mvmg, Gml Mobile Home Draw [address] [place] [address] 04/24/2024 7:00 AM EDT Laboratory Lab Mobile Phlebotomy [facility] [address] [place] [address] Mvmg, Gml Mobile Home Draw [address] [employer] [place], [place] [address] 05/09/2024 7:00 AM EDT Laboratory Lab Mobile Phlebotomy [facility] [address] [place] [address] Mvmg, Gml Mobile Home Draw [address] [place] [address] 05/23/2024 7:00 AM EDT Laboratory Lab Mobile Phlebotomy [facility] [address] [employer], [place] [address] Mvmg, Gml Mobile Home Draw [address] [place], [place] [address] 06/06/2024 7:00 AM EDT Laboratory Lab Mobile Phlebotomy [facility] 2520 [facility] [place] [address] Mvmg, Gml Mobile Home Draw 2520 [facility] [place] [address] 06/20/2024 7:00 AM EDT Laboratory Lab Mobile Phlebotomy [facility] [address] [facility] [place] [address] Mvmg, Gml Mobile Home Draw 25[address] [facility] [place] [address] 07/04/2024 7:00 AM EDT Laboratory Lab Mobile Phlebotomy [facility] [address] [facility] [place] [address] Mvmg, Gml Mobile Home Draw [address] [facility] [place] [address] 07/18/2024 7:00 AM EDT Laboratory Lab Mobile Phlebotomy [facility] [address] [facility] [place] [address] Mvmg, Gml Mobile Home Draw [address] [facility] [place] [address] 08/01/2024 7:00 AM EDT Laboratory Lab Mobile Phlebotomy [facility] [address] [facility] [place] [address] Mvmg, Gml Mobile Home Draw [address] [facility] [place] [address] 08/15/2024 7:00 AM EDT Laboratory Lab Mobile Phlebotomy [facility] [address] [facility] [place] [address] Mvmg, Gml Mobile Home Draw [address] [facility] [place] [address] 08/29/2024 7:00 AM EST Laboratory Lab Mobile Phlebotomy [facility] [address] [facility] [place] [address] Mvmg, Gml Mobile Home Draw [address] [facility] [place] [address] 09/12/2024 7:00 AM EST Laboratory Lab Mobile Phlebotomy [facility] [address] [facility] [place] [address] Mvmg, Gml Mobile Home Draw 2520 [facility] [place] [address] 09/26/2024 7:00 AM EST Laboratory Lab Mobile Phlebotomy [facility] 2520 [facility] [place] [address] Mvmg, Gml Mobile Home Draw 2520 [facility] [place] [address] Health Maintenance Due Date Last Done Comments [...] 023, 03/08/2019, 04/09/2014 CKD PHOS USE SMARTSET 40659 12/07/202411/23, 12/26/2022, 06/21/2021 CKD HGB USE SMARTSET 23784 01/17/202501/17, 01/18/2024, 01/04/2024, Additional history exists COLONOSCOPY-EVERY [...] encounter Medical Devices Implanted Type Area Supervisor Sanding Device Identifier Shelf Expiration Date Model / Serial / Lot Lens Intraoc 22.5 - [id number] - [id number] Implanted:Qty: 1 on 05/22/2018 by Jasbir Maurer MD at OR [facility] Right: Eye [employer] 11/22/2022 [id number] / [id number] / [id number] Lens Intraoc 21.0 - [id number] - [id number] Implanted:Qty: 1 on 06/05/2018 by Jasbir Maurer MD at OR [facility] Left: Eye [employer]OM[employer] 12/20/2022 [id number] / [id number] / documented as of this encounter Advance [...] Care Power of Attor mayela Care Teams Marine Engine Driver Relationship Specialty Start Date End Date Michael Hinton MD [address] [place] [address] PCP - General Family Medicine 08/07/17 documented as of this encounter
--- OUTSIDE RECORDS SUMMARY | 2024-03-01 06:27 | External Medical Summary ---
Author Name Unknown Address Unknown Organization K01:[facility] [place] [address] [place] [address] Laboratory Report Ordering Provider Test Date Status GUERRERO CHAUHAN 02/01/2024 10:24:00 Final Observation Date Value Abnormality Reference (Units ) Status Ferritin 02/01/2024 10:24:00 323 30-400 (ng /mL) Final Performing Location [facility] [place] [address] [place] [address]
--- OUTSIDE RECORDS SUMMARY | 2024-03-01 06:27 | External Medical Summary ---
Author Name Unknown Address Unknown Organization K0G:LAB[facility]ORY [facility] [place] [address] - [address] [facility] [place] [address] Laboratory Report Ordering Provider Test Date Status GUERRERO CHAUHAN 02/01/2024 10:24:00 Final Observation Date Value Abnormality Reference (Units ) Status SYNC LEUKOCYTES IN BLOOD BY AUTOMATED COUNT 02/01/2024 10:24:00 5.28 4.00-10.80 (K/uL) Final Neutrophils/100 leukocytes in Blood by Manual count 02/01/2024 10:24:00 77.0 Above high normal 40.0-75.0 (%) Final Lymphocytes/100 leukocytes in Blood by Manual count 02/01/2024 10:24:00 13.0 Below low normal 18.0-42.0 (%) Final Monocytes/100 leukocytes in Blood by Manual count 02/01/2024 10:24:00 9.0 1.0-11.0 (%) Final Metamyelocytes/100 leukocytes in Blood by Manual count 02/01/2024 10:24:00 1.0 Above high normal <=0.0 (%) Final Neutrophils [#/volume] in Blood by Manual count 02/01/2024 10:24:00 4.07 1.80-7.70 (K/uL) Final Lymphocytes [#/volume] in Blood by Manual count 02/01/2024 10:24:00 0.69 Below low normal 1.00-4.80 (K/uL) Final Monocytes [#/volume] in Blood by Manual count 02/01/2024 10:24:00 0.48 0.00-1.10 (K/uL) Final Metamyelocytes [#/volume] in Blood by Manual count 02/01/2024 10:24:00 0.05 Above high normal <=0.00 (K/uL) Final Nucleated erythrocytes/100 leukocytes [Ratio] in Blood by Automated count 02/01/2024 10:24:00 2 Above high normal <=0 (/100 WBCs) Final Performing Location LABORATORY [facility] [place] [address] 0 - [address] [place] [address]
--- OUTSIDE RECORDS SUMMARY | 2024-03-01 06:28 | External Medical Summary | Summary of Care ---
Author Name Unknown Organization [facility] Address [address] [place] [address] Phone [phone] Care Team Providers Care Information Broker Name Role Phone Michael Hinton MD Primary Care Provider [phone] Reason for Visit * Reason Onset Date Comments [facility]: Maintenance 01/25/2024 Encounter Details Date Type Department Care Team (Late st Contact Info) Description 01/25/2024 9:30 AM EDT Scheduled Telephone [facility], [facility] [address] [facility] [place] [address] Coordinator, 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y [...] as of this encounter (statuses as of 01/25/2024) Immunizations Name Administration Dates Next Due COVID-19 mRNA, LNP-s, No Pre serve, 2-Dose Series ([employer]) 11/03/2021,12/19/2020,11/28/2020 Covid-19 Ad26, Single Dose ([employer]) 12/19/2020,11/28/2020 DTaP Dipth/Tet/Acell Pertussis (Infanrix), Peds 10/24/2019 [...] encounter Miscellaneous Notes * Telephone Encounter - Shelbie Cartagena RN - 01/25/2024 11:40 AM EDT Sent to [facility] scheduling pool to assist with home health referral. Shelbie Cartagena RN Blacksmith Supervisor [facility] * Telephone Encounter - Shelbie Cartagena RN - 01/25/2024 11:08 AM EDT [facility] Telephonic Nurse Follow-Up Call [facility] Subprogram: Primary Care at Home Follow Up Call Type: Routine follow up call / Status Check Acute issue requiring follow-up call: Other: pain in left ankle Objective: 01/24/2024 1:34 PM 01/23/2024 11:13 AM 01/15/2024 12:06 PM 12/04/2023 12:09 PM 11/30/2023 2:51 PM VITALS ACROSS ENCOUNTERS BP 135/60 128/62 104/62 148/68 126/56 Pulse 93 75 65 82 Weight 76.9 kg 75.3 kg BMI 28.22 kg/m2 27.62 kg/m2 Remote Patient Monitoring: [facility] Scale: no recording today Oxygen Needs: NO supplemental oxygen needs identified DME Needs: Bedside commode Medications: New medication(s) added: Medrol Dosepack ordered on 01/22 Subjective: Condition Status: Improvement in symptoms but not at baseline Current Concerns: Called and spoke with daughter/ Dionne, she said her father is feeling a little better, having less left ankle pain. He started taking the Medrol prescription and is able to stand and ambulate with assistance. Daughter has not heard from any Home health agency concerning wound care , referral was ordered yesterday. Teams message sent to Ashley Carmen CMA to assist. Disposition: Follow up call scheduled for tomorrow with [facility] Community Liaison Future Visits Scheduled: Future Appointments-next 60 days Date/Time Provider Specialty Dept Phone 01/26/2024 9:00 AM CoordinatorSnehal [facility] [phone] 02/01/2024 9:20 AM [facility], [facility] Mobile Home Draw Laboratory Processing [phone] 02/12/2024 5:30 PM Peggy De RN [facility] [phone] 02/15/2024 9:20 AM [facility], l Mobile Home Draw Laboratory Processing [phone] 02/26/2024 12:30 PM Decker, Nurse Annual Wellness N[facility] Ancillary [phone] 02/29/2024 9:20 AM [facility], l Mobile Home Draw Laboratory Processing [phone] 03/11/2024 3:15 PM Kalpesh Funes MD Urology [phone] 03/14/2024 9:20 AM [facility], l Mobile Home Draw Laboratory Processing [phone] 03/14/2024 3:00 PM Berny Power PA-C [facility] [phone] 03/22/2024 3:00 PM (Arrive by 2:45 PM) Nataly Stone PA-C Nephrology [phone] 03/28/2024 8:00 AM [facility], [facility] Mobile Home Draw Laboratory Processing [phone] 04/11/2024 8:00 AM [facility], [facility] Mobile Home Draw Laboratory Processing [phone] 04/25/2024 8:00 AM [facility], [facility] Mobile Home Draw Laboratory Processing [phone] 05/09/2024 8:00 AM [facility], [facility] Mobile Home Draw Laboratory Processing [phone] 05/23/2024 8:00 AM [facility], [facility] Mobile Home Draw Laboratory Processing [phone] 06/06/2024 8:00 AM [facility], [facility] Mobile Home Draw Laboratory Processing [phone] 06/20/2024 8:00 AM [facility], [facility] Mobile Home Draw Laboratory Processing [phone] 07/04/2024 8:00 AM [facility], [facility] Mobile Home Draw Laboratory Processing [phone] 07/18/2024 8:00 AM [facility], [facility] Mobile Home Draw Laboratory Processing [phone] 08/01/2024 8:00 AM [facility], [facility] Mobile Home Draw Laboratory Processing [phone] 08/15/2024 8:00 AM [facility], [facility] Mobile Home Draw Laboratory Processing [phone] 08/29/2024 8:00 AM [facility], [facility] Mobile Home Draw Laboratory Processing [phone] 09/12/2024 8:00 AM [facility], [facility] Mobile Home Draw Laboratory Processing [phone] 09/26/2024 8:00 AM [facility], [facility] Mobile Home Draw Laboratory Processing [phone] Shelbie Cartagena senior principalBlacksmith Supervisor [facility] documented in this encounter Plan of Treatment Upcoming Encounters Date Type Department Care Team (Late st Contact Info) Description 01/26/2024 9:00 AM EDT Scheduled Telephone [facility] [place] [address] [facility] [place] [address] Coordinator, [facility] [address] [place] [address] 02/01/2024 9:20 AM EDT Laboratory Lab Mobile Phlebotomy [facility] [address] [place] [address] [facility], [facility] Mobile Home Draw [address] [place] [address] 02/12/2024 5:30 PM EDT Home Visit ising at [facility] [address] [place] [address] Peggy De RN [address] [place] [address] 02/15/2024 9:20 AM EDT Laboratory Lab Mobile Phlebotomy [facility] [address] [place] [address] [facility], [facility] Mobile Home Draw [address] [place] [address] 02/26/2024 12:30 PM EDT Nurse Only Ancillary [facility] [address] [place] [address] [facility], Nurse Annual Wellness [facility] [address] [place] [address] 02/29/2024 9:20 AM EDT Laboratory Lab Mobile Phlebotomy [facility] [address] [place] [address] [facility], [facility] Mobile Home Draw [address] [place] [address] 03/11/2024 3:15 PM EDT Office Visit Urology, [facility] [address] [place] [address] Kalpesh Funes MD [address] [address] [place] [address] 03/14/2024 9:20 AM EDT Laboratory Lab Mobile Phlebotomy [facility] [address] [place] [address] G[facility], [facility] Mobile Home Draw [address] [place] [address] 03/14/2024 3:00 PM EDT [facility] Visit [facility], [facility] [address] [place] [address] Berny Power PA-C [address] [facility] [address] 03/22/2024 3:00 PM EDT Office Visit Nephrology, Melissa [place] [address] [facility] [place] [address] ZemaNataly johnson PA-C [address] [place] [address] 03/28/2024 8:00 AM EDT Laboratory Lab Mobile Phlebotomy [facility] [address] [place] [address] [facility], [facility] Mobile Home Draw [address] [place] [address] 04/11/2024 8:00 AM EDT Laboratory Lab Mobile Phlebotomy C [address] [place] [address] G[facility], [facility] Mobile Home Draw [address] [place] [address] 04/25/2024 8:00 AM EDT Laboratory Lab Mobile Phlebotomy C [address] [place] [address] G[facility], [facility] Mobile Home Draw [address] [place] [address] 05/09/2024 8:00 AM EDT Laboratory Lab Mobile Phlebotomy [facility] [address] [place] [address] c, [facility] Mobile Home Draw [address] [place] [address] 05/23/2024 8:00 AM EDT Laboratory Lab Mobile Phlebotomy [facility] [address] [place] [address] [facility], [facility] Mobile Home Draw [address] [place] [address] 06/06/2024 8:00 AM EDT Laboratory Lab Mobile Phlebotomy [facility] [address] [place] [address] G[facility], [facility] Mobile Home Draw [address] [place] [address] 06/20/2024 8:00 AM EDT Laboratory Lab Mobile Phlebotomy [facility] [address] [place] [address] [facility], [facility] Mobile Home Draw [address] [place] [address] 07/04/2024 8:00 AM EDT Laboratory Lab Mobile Phlebotomy [facility] [address] [place] [address] [facility], [facility] Mobile Home Draw [address] [place] [address] 07/18/2024 8:00 AM EDT Laboratory Lab Mobile Phlebotomy [facility] [address] [place] [address] [facility], [facility] Mobile Home Draw [address] [place] [address] 08/01/2024 8:00 AM EDT Laboratory Lab Mobile Phlebotomy [facility] [address] [place] [address] [facility], [facility] Mobile Home Draw [address] [place] [address] 08/15/2024 8:00 AM EDT Laboratory Lab Mobile Phlebotomy [facility] [address] [place] [address] [facility], [facility] Mobile Home Draw [address] [place] [address] 08/29/2024 8:00 AM EST Laboratory Lab Mobile Phlebotomy [facility] [address] [place] [address] Gm, Gm Mobile Home Draw [address] [place] [address] 09/12/2024 8:00 AM EST Laboratory Lab Mobile Phlebotomy [facility] [address] [place] [address] Gm, Gm Mobile Home Draw [address] [place] [address] 09/26/2024 8:00 AM EST Laboratory Lab Mobile Phlebotomy [facility] [address] [place] [address] [facility], [facility] Mobile Home Draw [address] [place] [address] Health Maintenance Due Date Last Done Comments [...] 023, 03/08/2019, 04/09/2014 CKD PHOS USE SMARTSET 38002 12/07/202411/23, 12/26/2022, 06/21/2021 CKD HGB USE SMARTSET 28345 01/17/202501/17, 01/18/2024, 01/04/2024, Additional history exists COLONOSCOPY-EVERY [...] this encounter Medical Devices Implanted Type Area Dynamics Ax Developer Device Identifier Shelf Expiration Date Model / Serial / Lot Lens Intraoc 22.5 - [id number] - [id number] Implanted:Qty: 1 on 05/22/2018 by Jasbir Maurer MD at OR [facility] Right: Eye [employer] 11/22/2022 [id number] / [id number] / [id number] Lens Intraoc 21.0 - [id number] - [id number] Implanted:Qty: 1 on 06/05/2018 by Jasbir Maurer MD at OR [facility] Left: Eye [employer]OM[employer] 12/20/2022 [id number] / [id number] / documented as of this encounter Advance [...] Care Power of Attor mayela Care Teams Information Broker Relationship Specialty Start Date End Date Michael Hinton MD [address] [place] [address] PCP - General Family Medicine 08/07/17 documented as of this encounter
--- OUTSIDE RECORDS SUMMARY | 2024-03-01 06:28 | External Medical Summary | Summary of Care ---
Author Name Unknown Organization [facility] Address [address] [facility] [place] [address] Phone [phone] Care Team Providers Care Warehouse Receiver Name Role Phone Michael Hinton MD Primary Care Provider [phone] Reason for Visit * Reason Onset Date Comments [facility]: Maintenance 01/26/2024 Encounter Details Date Type Department Care Team (Late st Contact Info) Description 01/26/2024 9:00 AM EDT Scheduled Telephone [facility], [facility] [address] [facility] [place] [address] Coordinator, [facility] [address] [facility] [place] [address] Allergies Active Allergy Reactions Criticality Noted Date Comments Fabiano Inhibitors Cough 06/09/2017 Carbidopa W-Levodopa 03/17/2021 Constipation Nsaids Rash 05/17/2018 Contraindicated per scientific informatics analyst documented as of this encounter (statuses as of 01/26/2024) Medications Medication Sig Dispensed Refills Start Date End Date Status Glucose Blood (ONETOUCH VERIO) STRPIndications:Ty pe 2 diabetes mellitus with hemoglobin A1c goal of less than 8.0% ([facility]) Use up to 4 times a day [...] mitral valve regurgitation,Krista nary artery disease involving [place] coronary artery of [place] heart without angina pectoris,Paroxysma l atrial fibrillation [...] as of this encounter (statuses as of 01/26/2024) Active Problems Problem Noted Date Diagnosed Date [...] Last Assessment & Plan: Followed closely by [facility] hematology. No identified cause of HUNTER. [...] knees 03/21/2018 Coronary artery disease invo lving [place] coronary artery of [place] heart without angina pectoris 03/21/2018 Last Assessment [...] as of this encounter (statuses as of 01/26/2024) Resolved Problems Problem Noted Date Diagnosed Date [...] scanned document from 11/13/[address] [facility]. Coronary artery disease [...] as of this encounter (statuses as of 01/26/2024) Immunizations Name Administration Dates Next Due COVID-19 mRNA, LNP-s, No Pre serve, 2-Dose Series ([employer]) 11/03/2021,12/19/2020,11/28/2020 Covid-19 Ad26, Single Dose ([employer]J&J) 12/19/2020,11/28/2020 DTaP Dipth/Tet/Acell Pertussis (Infanrix), Peds 10/24/2019 [...] encounter Miscellaneous Notes * Telephone Encounter - Meri Hernadez RN - 01/26/2024 1:41 PM EDT [facility] Telephonic Nurse Follow-Up Call [facility] Subprogram: Primary Care at Home Follow Up Call Type: 48 hour follow up Acute issue requiring follow-up call: Other: acute follow up for left ankle pain, swelling, unable to bear wt. Started medrol dose pack 01/22. Objective: 01/24/2024 1:34 PM 01/23/2024 11:13 AM 01/15/2024 12:06 PM 12/04/2023 12:09 PM 11/30/2023 2:51 PM VITALS ACROSS ENCOUNTERS BP 135/60 128/62 104/62 148/68 126/56 Pulse 93 75 65 82 Weight 76.9 kg 75.3 kg BMI 28.22 kg/m2 27.62 kg/m2 Medications: New medication(s) added: Medrol dose pack Subjective: Condition Status: Improvement in symptoms but not at baseline Current Concerns: spoke with , Ashley who reports that patient is now able to bear weight on left ankle/foot. Pain continues to be 5/10, but much better than it had been. Taking medrol dose pack. Done with abx. Right leg still seeping. Denies any increased redness, fever, chills. No increase in edema or abdominal bloating. Increased urination noted. Still unable to stand safely on scale so reviewed other sx's of fluid overload to watch for and report to [facility]. Has not heard from home health yet. Disposition: Routed to [facility] and/or [facility] [place] Care Team for further advice and Weekend call scheduled-scheduled follow up call early next week Future Visits Scheduled: Future Appointments-next 60 days Date/Time Provider Specialty Dept Phone 02/01/2024 9:20 AM c, [facility] Mobile Home Draw Laboratory Processing [phone] 02/12/2024 5:30 PM Peggy De RN [facility] [phone] 02/15/2024 9:20 AM [facility], [facility] Mobile Home Draw Laboratory Processing [phone] 02/26/2024 12:30 PM Decker, Nurse Annual Wellness Nir[facility] Ancillary [phone] 02/29/2024 9:20 AM G[facility], [facility] Mobile Home Draw Laboratory Processing [phone] 03/11/2024 3:15 PM Kalpesh Funes MD Urology [phone] 03/14/2024 9:20 AM [facility], [facility] Mobile Home Draw Laboratory Processing [phone] 03/14/2024 3:00 PM Berny Power PA-C [facility] [phone] 03/22/2024 3:00 PM (Arrive by 2:45 PM) Nataly Stone PA-C Nephrology [phone] 03/28/2024 8:00 AM [facility], [facility] Mobile Home Draw Laboratory Processing [phone] 04/11/2024 8:00 AM [facility], [facility] Mobile Home Draw Laboratory Processing [phone] 04/25/2024 8:00 AM [facility], [facility] Mobile Home Draw Laboratory Processing [phone] 05/09/2024 8:00 AM [facility], [facility] Mobile Home Draw Laboratory Processing [phone] 05/23/2024 8:00 AM [facility], [facility] Mobile Home Draw Laboratory Processing [phone] 06/06/2024 8:00 AM [facility], [facility] Mobile Home Draw Laboratory Processing [phone] 06/20/2024 8:00 AM [facility], [facility] Mobile Home Draw Laboratory Processing [phone] 07/04/2024 8:00 AM [facility], [facility] Mobile Home Draw Laboratory Processing [phone] 07/18/2024 8:00 AM [facility], [facility] Mobile Home Draw Laboratory Processing [phone] 08/01/2024 8:00 AM [facility], [facility] Mobile Home Draw Laboratory Processing [phone] 08/15/2024 8:00 AM [facility], [facility] Mobile Home Draw Laboratory Processing [phone] 08/29/2024 8:00 AM [facility], [facility] Mobile Home Draw Laboratory Processing [phone] 09/12/2024 8:00 AM [facility], [facility] Mobile Home Draw Laboratory Processing [phone] 09/26/2024 8:00 AM [facility], [facility] Mobile Home Draw Laboratory Processing [phone] Meri Hernadez, RN documented in this encounter Plan of Treatment Upcoming Encounters Date Type Department Care Team (Late st Contact Info) Description 01/29/2024 10:45 AM EDT Scheduled Telephone [facility] 132 [facility] [place] [address] Coordinator, [facility] [address] [place] [address] 02/01/2024 9:20 AM EDT Laboratory Lab Mobile Phlebotomy [facility] [address] [place] [address] [facility], [facility] Mobile Home Draw [address] [place] [address] 02/12/2024 5:30 PM EDT Home Visit [facility] [place], [facility] [address] [place] [address] Peggy De, RN [address] [place] [address] 02/15/2024 9:20 AM EDT Laboratory Lab Mobile Phlebotomy [facility] [address] [place] [address] [facility], [facility] Mobile Home Draw [address] [place] [address] 02/26/2024 12:30 PM EDT Nurse Only Ancillary [facility] [address] [place] [address] [facility], Nurse Annual Wellness [facility] [address] [place] [address] 02/29/2024 9:20 AM EDT Laboratory Lab Mobile Phlebotomy [facility] [address] [place] [address] [facility], [facility] Mobile Home Draw [address] [place] [address] 03/11/2024 3:15 PM EDT Office Visit Urology, [facility] [address] [place] [address] Kalpesh Funes MD [address] [place] [address] 03/14/2024 9:20 AM EDT Laboratory Lab Mobile Phlebotomy [facility] [address] [place] [address] [facility], [facility] Mobile Home Draw [address] [place] [address] 03/14/2024 3:00 PM EDT [facility] Visit [facility], [facility] [address] [place] [address] Berny Power PA-C [address] [place] [address] 03/22/2024 3:00 PM EDT Office Visit Nephrology, [facility] [address] [facility] [place] [address] ZeNataly bailey PA-C [address] [facility] [place] [address] 03/28/2024 8:00 AM EDT Laboratory Lab Mobile Phlebotomy [facility] [address] [place] [address] [facility], [facility] Mobile Home Draw [address] [place] [address] 04/11/2024 8:00 AM EDT Laboratory Lab Mobile Phlebotomy [facility] [address] [place] [address] [facility], [facility] Mobile Home Draw [address] [place] [address] 04/25/2024 8:00 AM EDT Laboratory Lab Mobile Phlebotomy [facility] [address] [place] [address] [facility], [facility] Mobile Home Draw [address] [place] [address] 05/09/2024 8:00 AM EDT Laboratory Lab Mobile Phlebotomy [facility] [address] [place] [address] [facility], [facility] Mobile Home Draw [address] [place] [address] 05/23/2024 8:00 AM EDT Laboratory Lab Mobile Phlebotomy [facility] [address] [place] [address] G[facility], [facility] Mobile Home Draw [address] [place] [address] 06/06/2024 8:00 AM EDT Laboratory Lab Mobile Phlebotomy [facility] [address] [place] [address] [facility], [facility] Mobile Home Draw [address] [place] [address] 06/20/2024 8:00 AM EDT Laboratory Lab Mobile Phlebotomy [facility] [address] [place] [address] [facility], [facility] Mobile Home Draw [address] [place] [address] 07/04/2024 8:00 AM EDT Laboratory Lab Mobile Phlebotomy [facility] [address] [place] [address] [facility], [facility] Mobile Home Draw [address] [place] [address] 07/18/2024 8:00 AM EDT Laboratory Lab Mobile Phlebotomy [facility] [address] [place] [address] [facility], [facility] Mobile Home Draw [address] [place] [address] 08/01/2024 8:00 AM EDT Laboratory Lab Mobile Phlebotomy [facility] [address] [place] [address] [facility], [facility] Mobile Home Draw [address] [place] [address] 08/15/2024 8:00 AM EDT Laboratory Lab Mobile Phlebotomy [facility] [address] [place] [address] [facility], [facility] Mobile Home Draw [address] [place] [address] 08/29/2024 8:00 AM EST Laboratory Lab Mobile Phlebotomy [facility] [address] [place] [address] [facility], [facility] Mobile Home Draw [address] [place] [address] 09/12/2024 8:00 AM EST Laboratory Lab Mobile Phlebotomy [facility] [address] [place] [address] [facility], [facility] Mobile Home Draw [address] [place] [address] 09/26/2024 8:00 AM EST Laboratory Lab Mobile Phlebotomy [facility] [address] [place] [address] [facility], [facility] Mobile Home Draw [address] [place] [address] Health Maintenance Due Date Last Done Comments [...] 023, 03/08/2019, 04/09/2014 CKD PHOS USE SMARTSET 10839 12/07/202411/23, 12/26/2022, 06/21/2021 CKD HGB USE SMARTSET 72646 01/17/202501/17, 01/18/2024, 01/04/2024, Additional history exists COLONOSCOPY-EVERY [...] this encounter Medical Devices Implanted Type Area Cut Out Worker Device Identifier Shelf Expiration Date Model / Serial / Lot Lens Intraoc 22.5 - [id number] - [id number] Implanted:Qty: 1 on 05/22/2018 by Jasbir Maurer MD at [place] [facility] Right: Eye [employer] 11/22/2022 [id number] / [id number] / [id number] Lens Intraoc 21.0 - [id number] - [id number] Implanted:Qty: 1 on 06/05/2018 by Jasbir Maurer MD at OR [facility] Left: Eye [employer] 12/20/2022 [id number] / [id number] / documented as of this encounter Advance [...] Agents on File Name Relationship Healthcare Agent [facility] p Communication Ashley Fantasma Jose Spouse Health Care Power of Attor mayela Care Teams Warehouse Receiver Relationship Specialty Start Date End Date Michael Hinton MD [address] [place] [address] PCP - General Family Medicine 08/07/17 documented as of this encounter
--- OUTSIDE RECORDS SUMMARY | 2024-03-01 06:28 | External Medical Summary | Summary of Care ---
Author Name Unknown Organization [facility] Address [address] [place] [address] Phone [phone] Care Team Providers Care Shower Room Attendant Name Role Phone Michael Hinton MD Primary Care Provider [phone] Encounter Details Date Type Department Care Team (Late st Contact Info) Description 01/23/2024 11:30 AM EDT Home Visit [facility] 132 [place] [address] Peggy De RN 132 [facility] [address] Allergies Active Allergy Reactions Criticality Noted Date Comments Fabiano Inhibitors Cough 06/09/2017 Carbidopa W-Levodopa 03/17/2021 Constipation Nsaids Rash 05/17/2018 Contraindicated per electronics supervisor documented as of this encounter (statuses as of 01/29/2024) Medications Medication Sig Dispensed Refills Start Date [...] DAY 90 Tablet 3 04/15/2023 4 Active Additional Information Patient taking differently: 40 mg Daily(AM), Reported on 11/30/2023 Metoprolol Succinate ER 25 MG Oral Tablet Extended Release 24 Hour (toPROL XL) TAKE ONE TABLET BY MOUTH EVERY MORNING 90 Tablet 3 03/21/2023 4 Active Amantadine HCl 100 MG Oral [...] MORNING 90 Tablet 3 01/23/2023 4 Active DIURETIC TITRATION PLAN If no improvement [...] 2 WEEK BREAK) 45 g 2 11/06/2023 5 Active Torsemide 20 MG Oral Tablet (Demadex)Indicatio ns:Nonrheumatic mitral valve regurgitation,Krista nary artery disease involving northern [place] coronary artery of northern [place]aho heart without angina pectoris,Paroxysma l atrial fibrillation (HCC),Stage 3b chronic kidney disease (HCC) Take 2 Tablets by mouth in the morning. 180 Tablet 3 01/15/2024 Active Levalbuterol Tartrate 45 MCG/ACT Inhalation Aerosol (Xopenex HFA)Indications:Pn eumonia of left lower lobe due to infectious organism Inhale 1 Puff by mouth every 6 hours as needed for Wheezing. Or coughing spells 15 g 12 03/10/2023 4 Discontinue d(Refill) documented as of this encounter (statuses as of 01/29/2024) Active Problems Problem Noted Date Diagnosed Date [...] knees 03/21/2018 Coronary artery disease invo lving northern arapaho coronary artery of northern arapaho heart without angina pectoris 03/21/2018 Last Assessment [...] as of this encounter (statuses as of 01/29/2024) Resolved Problems Problem Noted Date Diagnosed Date [...] scanned document from 11/13/[address] [facility] [place]. 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y [...] as of this encounter (statuses as of 01/29/2024) Immunizations Name Administration Dates Next Due COVID-19 mRNA, LNP-s, No Pre serve, 2-Dose Series (Pin or Peg) 11/03/2021,12/19/2020,11/28/2020 Covid-19 Ad26, Single Dose (Soy/J&J) 12/19/2020,11/28/2020 [...] Sign Reading Time Taken Comments Blood Pressure 128/62 01/23/2024 11:13 AM EDT Pulse 75 01/23/2024 11:13 AM EDT Temperature 36.3 C (97.4 F) 01/23/2024 11:13 AM E DT Respiratory Rate 18 01/23/2024 11:13 AM EDT Oxygen Saturation 96% 01/23/2024 11:13 AM EDT Inhaled Oxygen Concentration - - Weight - - Height - - Body Mass Index - - documented in this encounter Progress Notes * Peggy De RN - 01/23/2024 10:50 AM EDT Images from the original note were not included. Ej at Home Sole MolderAirline Hostess Visit Date: 01/23/2024 Time: 10:50 AM Name: Jesus Jose : 1945 Current Concerns: Communication Note Name: Jesus Jose Situation: Pt's called in to [facility] to report that pt was unable to stand on scale today d/t severe pain of his left ankle. He woke up at 12am with pain and she gave him APAP and he slept but this am he is not able to get out of the recliner even with help of and dtr. Unable to bear wt Denies injury to the ankle and denies falling Has been having increased LE edema and recently completed abx for cellulitis of RLE and had torsemide increased Background: CHF, CKD, CAD, HTN, DM2, Parkinsons, Dementia, recent Cellulitis of RLE Assessment: Pt sitting in recliner Denies pain with sitting but up to 10/10 with any palpation/movement/standing on LLE Increased edema of left ankle Pt grimaces and moans when ankle area is touched or moved anteriorly and medial/lateral No bruising, redness, or warmth Has an area on medial side of dried blood/scabbing - pt/ unsure how it occurred - there is moreedema on the medial side Recommendation: [place] [facility] [place] Briggs with pics and assessment Recommends medrol dose pack (feels this is more gout related), inhaler for wheezing Advised /dtr to use bedside commode and urinal for now Home Health referral for wound care Has video visit with PA tomorrow Problems/Symptoms: Review of Systems Respiratory: Positive for shortness of breath and wheezing. Cardiovascular: Positive for leg swelling. Musculoskeletal: Positive for arthralgias, gait problem and joint swelling. Skin: Positive for wound. Psychiatric/Behavioral: Positive for confusion (intermittent - at baseline). Physical Exam: BP 128/62 | Pulse 75 | Temp 36.3 C (97.4 F) | Resp 18 | SpO2 96% Pain 10 Physical Exam Cardiovascular: Rate and Rhythm: Normal rate and regular rhythm. Pulses: Normal pulses. Heart sounds: Normal heart sounds. Pulmonary: Breath sounds: Wheezing (scattered throughout) present. Musculoskeletal: Right lower leg: Edema present. Left lower leg: Edema present. Skin: General: Skin is warm and dry. Neurological: Mental Status: He is alert. Mental status is at baseline. Gait: Gait abnormal. [facility]-10 Completed this Visit: Yes. [facility]-10: Reason Completed: Status post acute event/change in baseline [facility]-10 Interventions: Fall education provided, reviewed/provided Fall brochure Treatment/Plan: Continue meds as prescribed medrol dose pack (feels this is more gout related), inhaler for wheezing Advised /dtr to use bedside commode and urinal for now Home Health referral for wound care Has video visit with PA tomorrow Home Interventions Provided: Home Intervention: Other; eval Specialty Referral Placed Consulted PCP/Specialist Reinforced current Plan of Care, including self-management and medication regimen Patient's 'Red Flags': Worsening pain Increased edema/sob Unable to ambulate Patient Needs to Remember: Call [facility] at with any new or worsening health concerns or problems, red flag symptoms. Referrals Needed: Home Health Follow Up: Is there cellular connectivity/connectivity in the home? Yes Does the patient have internet in the home? Yes Patient encouraged to call the intake phone number for all urgent but not emergent issues. Scheduled to follow up with patient in 24 hrs. Peggy De RN 01/23/2024 10:50 AM documented in this encounter Plan of Treatment Upcoming Encounters Date Type Department Care Team (Late st Contact Info) Description 01/30/2024 3:00 PM EDT Scheduled Telephone [facility] [address] [place] [address] Coordinator, [facility] 132 [facility] [place] [address] 02/01/2024 7:05 AM EDT Laboratory Lab Mobile Phlebotomy [facility] [address] [place] [address] Mvmg, [facility] Mobile Home Draw [address] [place] [address] 02/12/2024 5:30 PM EDT Home Visit [facility] [place], [facility] 132 [facility] [place] [address] Peggy De RN 132 [facility] [place] [address] 02/15/2024 7:05 AM EDT Laboratory Lab Mobile Phlebotomy [facility] [address] [place] [address] Mvmg, Gml Mobile Home Draw [address] [facility] [place] [address] 02/26/2024 12:30 PM EDT Nurse Only Ancillary [facility] [address] [facility] [address] [facility] Wellness [facility] [address] [place] [address] 02/29/2024 7:05 AM EDT Laboratory Lab Mobile Phlebotomy [facility] [address] [facility] [place] [address] Mvmg, Gml Mobile Home Draw [address] [facility] [place] [address] 03/11/2024 3:15 PM EDT Office Visit Urology, [facility] 132 [place] [address] Kalpesh Funes MD [address] [place] [address] 03/14/2024 7:05 AM EDT Laboratory Lab Mobile Phlebotomy [facility] [address] [employer] [facility] [place] [address] Mvmg, Gml Mobile Home Draw [address] [facility] [place] [address] 03/14/2024 3:00 PM EDT Home Visit [facility] [place], [facility] 132 [place] [address] Berny Power PA-C 132 [facility] [place] [address] 03/22/2024 3:00 PM EDT Office Visit Nephrology, Melissa La [address] [place] [address] ZeNataly bailey PA-C [address] [place] [address] 03/28/2024 7:00 AM EDT Laboratory Lab Mobile Phlebotomy [facility] [address] [facility] [place] [address] Mvmg, Gml Mobile Home Draw [address] [facility] [place] [address] 04/11/2024 7:00 AM EDT Laboratory Lab Mobile Phlebotomy [facility] [address] [facility] [place] [address] Mvmg, Gml Mobile Home Draw [address] [facility] [place] [address] 04/24/2024 7:00 AM EDT Laboratory Lab Mobile Phlebotomy [facility] [address] [facility] [place] [address] Mvmg, Gml Mobile Home Draw [address] [facility] [place] [address] 05/09/2024 7:00 AM EDT Laboratory Lab Mobile Phlebotomy [facility] [address] [facility] [place] [address] Mvmg, Gml Mobile Home Draw [address] [facility] [place] [address] 05/23/2024 7:00 AM EDT Laboratory Lab Mobile Phlebotomy [facility] [address] [place] [address] Mvmg, Gml Mobile Home Draw [address]20 [place] [address] 06/06/2024 7:00 AM EDT Laboratory Lab Mobile Phlebotomy [facility] [address] [facility] [place] [address] Mvmg, Gml Mobile Home Draw [address] [facility] [place] [address] 06/20/2024 7:00 AM EDT Laboratory Lab Mobile Phlebotomy [facility] [address] [place] [address] Mvmg, Gml Mobile Home Draw [address] [facility] [place] [address] 07/04/2024 7:00 AM EDT Laboratory Lab Mobile Phlebotomy [facility] [address] [facility] [place] [address] Mvmg, Gml Mobile Home Draw [address] [facility] [place] [address] 07/18/2024 7:00 AM EDT Laboratory Lab Mobile Phlebotomy [facility] [address] [place] [address] Mvmg, Gml Mobile Home Draw [address] [facility] [place] [address] 08/01/2024 7:00 AM EDT Laboratory Lab Mobile Phlebotomy [facility] [address] [place] [address] Mvmg, Gml Mobile Home Draw [address] [facility] [place] [address] 08/15/2024 7:00 AM EDT Laboratory Lab Mobile Phlebotomy [facility] [address] [place] [address] Mvmg, Gml Mobile Home Draw [address] [facility] [place] [address] 08/29/2024 7:00 AM EST Laboratory Lab Mobile Phlebotomy [facility] [address] [place] [address] Mvmg, Gml Mobile Home Draw [address] [facility] [place] [address] 09/12/2024 7:00 AM EST Laboratory Lab Mobile Phlebotomy [facility] [address] [place] [address] Mvmg, Gml Mobile Home Draw [address] [facility] [place] [address] 09/26/2024 7:00 AM EST Laboratory Lab Mobile Phlebotomy [facility] [address] [place] [address] Mvmg, Gml Mobile Home Draw [address] [facility] [place] [address] Health Maintenance Due Date Last Done Comments [...] 023, 03/08/2019, 04/09/2014 CKD PHOS USE SMARTSET 65789 12/07/202411/23, 12/26/2022, 06/21/2021 CKD HGB USE SMARTSET 54249 01/17/202501/17, 01/18/2024, 01/04/2024, Additional history exists COLONOSCOPY-EVERY [...] encounter Medical Devices Implanted Type Area Electrical Assembler Device Identifier Shelf Expiration Date Model / Serial / Lot Lens Intraoc 22.5 - [id number] - [id number] Implanted:Qty: 1 on 05/22/2018 by Jasbir Maurer MD at OR [facility] Right: Eye BAUSCH [employer] LOMB 11/22/2022 [id number] / [id number] / [id number] Lens Intraoc 21.0 - [id number] - [id number] Implanted:Qty: 1 on 06/05/2018 by Jasbir Maurer MD at OR [facility] Left: Eye BAUSCH & LOMB 12/20/2022 [id number] / [id number] / documented as of this encounter Advance [...] Care Power of Attor mayela Care Teams Shower Room Attendant Relationship Specialty Start Date End Date Michael Hinton MD [address] [place] [address] PCP - General Family Medicine 08/07/17 documented as of this encounter
--- OUTSIDE RECORDS SUMMARY | 2024-03-01 06:28 | External Medical Summary | Summary of Care ---
Author Name Unknown Organization [facility] Address [address] [place] [address] Phone [phone] Care Team Providers Care Louver Mortiser Operator Name Role Phone Michael Hinton MD Primary Care Provider [phone] Reason for Visit * Reason Onset Date Comments [facility]: Maintenance 01/29/2024 Encounter Details Date Type Department Care Team (Late st Contact Info) Description 01/29/2024 10:45 AM EDT Scheduled Telephone [facility], [facility] 132 [facility] [place] [address] Coordinator, [facility] [address] [facility] [place] [address] Allergies Active Allergy Reactions Criticality Noted Date Comments Fabiano Inhibitors Cough 06/09/2017 Carbidopa W-Levodopa 03/17/2021 Constipation Nsaids Rash 05/17/2018 Contraindicated per shipping support clerk documented as of this encounter (statuses as of 01/29/2024) Medications Medication Sig Dispensed Refills Start Date End Date Status Glucose Blood (ONETOUCH VERIO) STRPIndications:Ty pe 2 diabetes mellitus with hemoglobin A1c goal of less than 8.0% ([facility]) Use up to 4 times a day [...] mitral valve regurgitation,Krista nary artery disease involving three affiliated coronary artery of three affiliated heart without angina pectoris,Paroxysma l atrial fibrillation [...] Last Assessment & Plan: Followed closely by [facility] hematology. No identified cause of [...] knees 03/21/2018 Coronary artery disease invo lving three affiliated [...] scanned document from 11/13/[address] [facility] [place]. 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y [...] mRNA, LNP-s, No Pre serve, 2-Dose Series (Tangler) 11/03/2021,12/19/2020,11/28/2020 Covid-19 Ad26, Single Dose ([employer]/J&J) 12/19/2020,11/28/2020 DTaP Dipth/Tet/Acell Pertussis (Infanrix), Peds 10/24/2019 [...] Telephone Encounter - Shelbie Cartagena RN - 01/29/2024 2:49 PM EDT Images from the original note were not included. [facility] at Home Telephonic Nurse Follow-Up Call [facility] Subprogram: Primary Care at Home Follow Up Call Type: Routine follow up call / Status Check Acute issue requiring follow-up call: Other: left ankle pain Objective: 01/24/2024 1:34 PM 01/23/2024 11:13 AM 01/15/2024 12:06 PM 12/04/2023 12:09 PM 11/30/2023 2:51 PM VITALS ACROSS ENCOUNTERS BP 135/60 128/62 104/62 148/68 126/56 Pulse 93 75 65 82 Weight 76.9 kg 75.3 kg BMI 28.22 kg/m2 27.62 kg/m2 Remote Patient Monitoring: [facility] Scale: scale Oxygen Needs: NO supplemental oxygen needs identified DME Needs: Bedside commode Medications: New medication(s) added: Medrol dosepak ordered on 01/22 Subjective: Condition Status: Improvement in symptoms but not at baseline Current Concerns: Called and spoke with / Ashley, she stated her husbands left ankle pain has improved and he is able to stand and walk. stated when Peggy had a HV last week a Home Health referral was suppose to be ordered for wound care for right lower leg. Right leg wound is still "seeping" and no one has called concerning a HH visit. Teams message sent to Ashley Carmen CMA and the [facility] scheduling pool to assist Disposition: Follow up call scheduled for tomorrow with CURVE SAW OPERATOR Operation Supervisor Future Visits Scheduled: Future Appointments-next 60 days Date/Time Provider Specialty Dept Phone 02/01/2024 7:05 AM [facility], [facility] Mobile Home Draw Laboratory Processing [phone] 02/12/2024 5:30 PM Peggy De RN [facility] [phone] 02/15/2024 7:05 AM [facility], [facility] Mobile Home Draw Laboratory Processing [phone] 02/26/2024 12:30 PM Jeronimo, Nurse Annual Wellness [facility] Ancillary [phone] 02/29/2024 7:05 AM M[facility], Gml Mobile Home Draw Laboratory Processing [phone] 03/11/2024 3:15 PM Kalpesh Funes MD Urology [phone] 03/14/2024 7:05 AM [facility], G[facility] Mobile Home Draw Laboratory Processing [phone] 03/14/2024 3:00 PM Berny Power PA-C [facility] [phone] 03/22/2024 3:00 PM (Arrive by 2:45 PM) Nataly Stone PA-C Nephrology [phone] 03/28/2024 7:00 AM [facility], [facility] Mobile Home Draw Laboratory Processing [phone] 04/11/2024 7:00 AM M[facility], [facility] Mobile Home Draw Laboratory Processing [phone] 04/24/2024 7:00 AM M[facility], [facility] Home Draw Laboratory Processing [phone] 05/09/2024 7:00 AM M[facility], [facility] Home Draw Laboratory Processing [phone] 05/23/2024 7:00 AM M[facility], [facility] Home Draw Laboratory Processing [phone] 06/06/2024 7:00 AM M[facility], [facility] Home Draw Laboratory Processing [phone] 06/20/2024 7:00 AM Mvmg, [facility] Home Draw Laboratory Processing [phone] 07/04/2024 7:00 AM M[facility], [facility] Home Draw Laboratory Processing [phone] 07/18/2024 7:00 AM Mv[facility], [facility] Mobile Home Draw Laboratory Processing [phone] 08/01/2024 7:00 AM Mv[facility], [facility] Home Draw Laboratory Processing [phone] 08/15/2024 7:00 AM [facility], [facility] Home Draw Laboratory Processing [phone] 08/29/2024 7:00 AM M[facility], [facility] Home Draw Laboratory Processing [phone] 09/12/2024 7:00 AM [facility], [facility] Home Draw Laboratory Processing [phone] 09/26/2024 7:00 AM [facility], [facility] Mobile Home Draw Laboratory Processing [phone] Shelbie Cartagena cath lab radiology technicianUnderwear Hemmer [facility] documented in this encounter Plan of Treatment Upcoming Encounters Date Type Department Care Team (Late st Contact Info) Description 01/30/2024 3:00 PM EDT Scheduled Telephone [facility] [address] [place] [address] Coordinator, [facility] [address] [place] [address] 02/01/2024 7:05 AM EDT Laboratory Lab Mobile Phlebotomy [facility] [address] [employer] [place] [address] Mvmg, Gml Mobile Home Draw [address] [place] [address] 02/12/2024 5:30 PM EDT Home Visit [facility], [facility] 132 [facility] [place] [address] Peggy De RN 132 [facility] [place] [address] 02/15/2024 7:05 AM EDT Laboratory Lab Mobile Phlebotomy [facility] [address] [facility] [place] [address] Mvmg, Gml Mobile Home Draw [address] [facility] [place] [address] 02/26/2024 12:30 PM EDT Nurse Only Ancillary [facility] 132 [facility] [place] [address] [facility], Nurse [facility] 132 [facility] [place] [address] 02/29/2024 7:05 AM EDT Laboratory Lab Mobile Phlebotomy [facility] [address] [facility] [place] [address] Mvmg, Gml Mobile Home Draw [address] [facility] [place] [address] 03/11/2024 3:15 PM EDT Office Visit Urology, [facility] 132 [facility] [place] [address] Kalpesh Funes MD [address] [place] [address] [place] [address] 03/14/2024 7:05 AM EDT Laboratory Lab Mobile Phlebotomy [facility] [address] [facility] [place] [address] Mvmg, Gml Mobile Home Draw [address] [facility] [place] [address] 03/14/2024 3:00 PM EDT Home Visit [facility], [facility] [address] [facility] [place] [address] Berny Power PA-C [address] [place] [address] 03/22/2024 3:00 PM EDT Office Visit Nephrology, Melissa La 200 [facility] [place], [place] [address] Nataly Stone, PAKittyC 200 [facility] [place], [place] [address] 03/28/2024 7:00 AM EDT Laboratory Lab Mobile Phlebotomy [facility] [address] [employer] [place], [place] [address] Mvmg, Gml Mobile Home Draw [address] [employer] [place], [place] [address] 04/11/2024 7:00 AM EDT Laboratory Lab Mobile Phlebotomy [facility] [address] [employer] [place], [place] [address] Mvmg, Gml Mobile Home Draw [address] [employer] [place], [place] [address] 04/24/2024 7:00 AM EDT Laboratory Lab Mobile Phlebotomy [facility] [address] [employer] [place], [place] [address] Mvmg, Gml Mobile Home Draw [address] [employer] [place], [place] [address] 05/09/2024 7:00 AM EDT Laboratory Lab Mobile Phlebotomy [facility] [address] [employer] [place], [place] [address] Mvmg, Gml Mobile Home Draw [address] [place] [address] 05/23/2024 7:00 AM EDT Laboratory Lab Mobile Phlebotomy [facility] [address] [employer] [place], [place] [address] Mvmg, Gml Mobile Home Draw [address] [employer] [place], [place] [address] 06/06/2024 7:00 AM EDT Laboratory Lab Mobile Phlebotomy [facility] [address] [employer] [place], [place] [address] Mvmg, Gml Mobile Home Draw [address] [place] [address] 06/20/2024 7:00 AM EDT Laboratory Lab Mobile Phlebotomy [facility] [address] [facility] [place] [address] Mvmg, Gml Mobile Home Draw [address] [facility] [place] [address] 07/04/2024 7:00 AM EDT Laboratory Lab Mobile Phlebotomy [facility] [address] [facility] [place] [address] Mvmg, Gml Mobile Home Draw [address] [facility] [place] [address] 07/18/2024 7:00 AM EDT Laboratory Lab Mobile Phlebotomy [facility] [address] [place] [address] Mvmg, Gml Mobile Home Draw [address] [facility] [place] [address] 08/01/2024 7:00 AM EDT Laboratory Lab Mobile Phlebotomy [facility] [address] [facility] [place] [address] Mvmg, Gml Mobile Home Draw [address] [facility] [place] [address] 08/15/2024 7:00 AM EDT Laboratory Lab Mobile Phlebotomy [facility] [address] [facility] [place] [address] Mvmg, Gml Mobile Home Draw [address] [place] [address] 08/29/2024 7:00 AM EST Laboratory Lab Mobile Phlebotomy [facility] [address] [facility] [place] [address] Mvmg, Gml Mobile Home Draw [address] [facility] [place] [address] 09/12/2024 7:00 AM EST Laboratory Lab Mobile Phlebotomy [facility] [address] [facility] [place] [address] Mvmg, Gml Mobile Home Draw [address] [place] [address] 09/26/2024 7:00 AM EST Laboratory Lab Mobile Phlebotomy [facility] [address] [place] [address] Mvmg, Gml Mobile Home Draw [address] [place] [address] Health Maintenance Due Date Last Done Comments [...] 023, 03/08/2019, 04/09/2014 CKD PHOS USE SMARTSET 96052 12/07/202411/23, 12/26/2022, 06/21/2021 CKD HGB USE SMARTSET 85316 01/17/202501/17, 01/18/2024, 01/04/2024, Additional history exists COLONOSCOPY-EVERY [...] this encounter Medical Devices Implanted Type Area Tech Ed/Woodshop Teacher Device Identifier Shelf Expiration Date Model / Serial / Lot Lens Intraoc 22.5 - [id number] - [id number] Implanted:Qty: 1 on 05/22/2018 by Jasbir Maurer MD at OR [facility] Right: Eye [employer]OM[employer] 11/22/2022 [id number] / [id number] / [id number] Lens Intraoc 21.0 - [id number] - [id number] Implanted:Qty: 1 on 06/05/2018 by Jasbir Maurer MD at OR [facility] Left: Eye BAUSCH [employer] LOMB 12/20/2022 [id number] / [id number] / documented as of this encounter Advance [...] on File Name Relationship [facility] Ashley Jose Spouse Health Care Power of Attor mayela Care Teams Louver Mortiser Operator Relationship Specialty Start Date End Date Michael Hinton MD [address] [place] [address] PCP - General Family Medicine 08/07/17 documented as of this encounter
--- OUTSIDE RECORDS SUMMARY | 2024-03-01 06:28 | External Medical Summary | Summary of Care ---
Author Name Unknown Organization [facility] Address [address] [place] [address] Phone [phone] Care Team Providers Care Learning Support Services Director Name Role Phone Michael Hinton MD Primary Care Provider [phone] Reason for Visit * Reason Onset Date Comments Information 01/29/2024 Encounter Details Date Type Department Care Team (Late st Contact Info) Description 01/29/2024 Telephone [facility], [place] [address] [place] [address] [phone] Services, Scheduling [address] [place] [address] Information (///) Allergies Active Allergy Reactions Criticality Noted Date Comments Fabiano Inhibitors Cough 06/09/2017 Carbidopa W-Levodopa 03/17/2021 Constipation Nsaids Rash 05/17/2018 Contraindicated per remote advisor documented as of this encounter (statuses as [...] valve regurgitation,Krista nary artery disease involving confederated gosh[place] coronary artery of confed[place] goshute heart without angina pectoris,Paroxysma l atrial fibrillation [...] Last Assessment & Plan: Followed closely by [facility] hematology. 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 [...] mRNA, LNP-s, No Pre serve, 2-Dose Series (G3) 11/03/2021,12/19/2020,11/28/2020 Covid-19 Ad26, Single Dose (Soy/J&J) 12/19/2020,11/28/2020 [...] Telephone Encounter - Ashley Carmen OSA - 01/29/2024 3:56 PM EDT Request to find HH for pat I inquired with [facility] and they dont cover this area so faxed docsall to [facility] and am waiting their reply now documented in this encounter Plan of Treatment Upcoming Encounters Date Type Department Care Team (Late st Contact Info) Description 01/30/2024 3:00 PM EDT Scheduled Telephone [facility] at [facility] [address] [place] [address] Coordinator, [facility] [address] [place] [address] 02/01/2024 7:05 AM EDT Laboratory Lab Mobile Phlebotomy [facility] [address] [place] [address] [facility], [facility] Draw [address] [place] [address] 02/12/2024 5:30 PM EDT Home Visit [facility], [facility] 132 [facility] [place] [address] Peggy De, RN 132 [facility] [place] [address] 02/15/2024 7:05 AM EDT Laboratory Lab Mobile Phlebotomy [facility] [address] [facility] [place] [address] [facility], [facility] Draw [address] [facility] [place] [address] 02/26/2024 12:30 PM EDT Nurse Only Ancillary [facility] 132 [facility] [place] [address] [facility], Nurse [facility] 132 [facility] [place] [address] 02/29/2024 7:05 AM EDT Laboratory Lab Mobile Phlebotomy [facility] [address] [facility] [place] [address] [facility], [facility] Draw [address] [facility] [place] [address] 03/11/2024 3:15 PM EDT Office Visit Urology, [facility] 132 [facility] [place] [address] Kalpesh Funes MD [address] [place] [address] [place] [address] 03/14/2024 7:05 AM EDT Laboratory Lab Mobile Phlebotomy [facility] [address] [facility] [place] [address] [facility], [facility] Draw [address] [facility] [place] [address] 03/14/2024 3:00 PM EDT Home Visit [facility], [facility] 132 [facility] [place] [address] Berny Power PA-C [address] [place] [address] 03/22/2024 3:00 PM EDT Office Visit Nephrology, Melissa La [address] [facility] [place], [place] [address] Nataly Stone PAKittyC [address] [facility] [place], [place] [address] 03/28/2024 7:00 AM EDT Laboratory Lab Mobile Phlebotomy [facility] [address] [employer] [place], [place] [address] [facility], [facility] Mobile [facility] Draw [address] [employer] [place], [place] [address] 04/11/2024 7:00 AM EDT Laboratory Lab Mobile Phlebotomy [facility] [address] [employer] [place], [place] [address] [facility], [facility]ml Mobile Home Draw [address] [employer] [place], [place] [address] 04/24/2024 7:00 AM EDT Laboratory Lab Mobile Phlebotomy [facility] [address] [employer] [place], [place] [address] [facility], [facility]ml Mobile Home Draw [address] [employer] [place], [place] [address] 05/09/2024 7:00 AM EDT Laboratory Lab Mobile Phlebotomy [facility] [address] [place], [place] [address] [facility], [facility]ml Mobile Home Draw [address] [employer] [place], [place] [address] 05/23/2024 7:00 AM EDT Laboratory Lab Mobile Phlebotomy [facility] [address] [place], [place] [address] [facility], [facility] Mobile Home Draw [address] [employer] [place], [place] [address] 06/06/2024 7:00 AM EDT Laboratory Lab Mobile Phlebotomy [facility] [address] [employer] [place], [place] [address] [facility], [facility] Draw [address] [facility] [place] [address] 06/20/2024 7:00 AM EDT Laboratory Lab Mobile Phlebotomy [facility] [address] [facility] [place] [address] M[facility], [facility] Draw [address] [facility] [place] [address] 07/04/2024 7:00 AM EDT Laboratory Lab Mobile Phlebotomy [facility] [address] [facility] [place] [address] [facility], [facility] Draw [address] [facility] [place] [address] 07/18/2024 7:00 AM EDT Laboratory Lab Mobile Phlebotomy [facility] [address] [place] [address] [facility], [facility] Draw [address] [facility] [place] [address] 08/01/2024 7:00 AM EDT Laboratory Lab Mobile Phlebotomy [facility] [address] [facility] [place] [address] M[facility], Gml Mobile Home Draw [address] [place] [address] 08/15/2024 7:00 AM EDT Laboratory Lab Mobile Phlebotomy [facility] [address] [facility] [place] [address] M[facility], [facility] Draw [address] [place] [address] 08/29/2024 7:00 AM EST Laboratory Lab Mobile Phlebotomy [facility] [address] [place] [address] [facility], [facility] Draw [address] [facility] [place] [address] 09/12/2024 7:00 AM EST Laboratory Lab Mobile Phlebotomy [facility] [address] [facility] [place] [address] M[facility], [facility] Mobile [facility] Draw [address] [place] [address] 09/26/2024 7:00 AM EST Laboratory Lab Mobile Phlebotomy [facility] [address] [place] [address] [facility], [facility] Mobile Home Draw [address] [place] [address] Health Maintenance Due Date Last Done Comments [...] 023, 03/08/2019, 04/09/2014 CKD PHOS USE SMARTSET 06211 12/07/202411/23, 12/26/2022, 06/21/2021 CKD HGB USE SMARTSET 90236 01/17/202501/17, 01/18/2024, 01/04/2024, Additional history exists COLONOSCOPY-EVERY [...] this encounter Medical Devices Implanted Type Area Scrap Metal Burner Device Identifier Shelf Expiration Date Model / Serial / Lot Lens Intraoc 22.5 - [id number] - [id number] Implanted:Qty: 1 on 05/22/2018 by Jasbir Maurer MD at OR [facility] Right: Eye [employer] 11/22/2022 [id number] / [id number] / [id number] Lens Intraoc 21.0 - [id number] - [id number] Implanted:Qty: 1 on 06/05/2018 by Jasbir Maurer MD at OR [facility] Left: Eye [employer]OM[employer] 12/20/2022 [id number] / [id number] / documented as of this encounter Advance [...] Agents on File Name Relationship Healthcare Agent [facility] p Communication Ashley Jose Spouse Health Care Power of Attor mayela Care Teams Learning Support Services Director Relationship Specialty Start Date End Date Michael Hinton MD [address] [place] [address] PCP - General Family Medicine 08/07/17 documented as of this encounter
--- OUTSIDE RECORDS SUMMARY | 2024-03-01 06:29 | External Medical Summary | Summary of Care ---
Author Name Unknown Organization [facility] Address [address] [facility] [place] [address] Phone [phone] Care Team Providers Care Sports Anchor Name Role Phone Michael Hinton MD Primary Care Provider [phone] Reason for Visit * Reason Onset Date Comments [facility]: Maintenance 01/22/2024 Encounter Details Date Type Department Care Team (Late st Contact Info) Description 01/22/2024 10:00 AM EDT Scheduled Telephone [facility], [facility] 132 [facility] [place] [address] Coordinator, [facility] [address] [facility] [place] [address] Allergies Active Allergy Reactions Criticality Noted Date Comments Faibano Inhibitors Cough 06/09/2017 Carbidopa W-Levodopa 03/17/2021 Constipation Nsaids Rash 05/17/2018 Contraindicated per three dimensional map modeler documented as of this encounter (statuses as of 01/22/2024) Medications Medication Sig Dispensed Refills Start Date End Date Status Glucose Blood (ONETOUCH VERIO) STRPIndications:Typ e 2 diabetes mellitus with hemoglobin A1c goal of less than 8.0% (HCC) Use up to 4 times a day E11.9 400 Strip 3 08/29/2018 Active ONETOUCH DELICA LANCETS 33G MISCIndications:Typ e 2 diabetes mellitus with hemoglobin A1c goal of less than 8.0% (HCC) Use up to 4 times a day 400 Each 3 08/29/2018 Active Levalbuterol Tartrate 45 MCG/ACT Inhalation Aerosol (Xopenex HFA)Indications: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 Or coughing spells 15 g 12 03/10/2023 Active Additional Information Patient not taking.Reported on 11/06/2023 Acetaminophen 500 MG Oral Tablet Take 2 [...] Active Atorvastatin Calcium 40 MG Oral Tablet (Lipitor)Indication s:Dyslipidemia Take 1 Tablet by mouth in the morning. 90 Tablet 3 10/13/2023 Active Vitamin B Complex Oral Capsule Take 1 Capsule by mouth in the morning. 90 Capsule 0 10/13/2023 Active Betamethasone Dipropionate 0.05 % External OintmentIndications :Inflamed seborrheic keratosis APPLY TO SKIN LESIONS AND SCALP LESIONS UP TO TWO TIMES A DAY FOR NO LONGER THAN 2 WEEKS AT A TIME FOR ITCH. (THEN TAKE A 2 WEEK BREAK) 45 g 2 11/06/2023 11/05/2024 Active Doxycycline Hyclate 100 MG Oral Capsule Take 1 Capsule by mouth in the morning and 1 Capsule before bedtime. Do all this for 7 days. 14 Capsule 0 01/15/2024 01/22/2024 Active Torsemide 20 MG Oral Tablet (Demadex)Indication s:Nonrheumatic mitral valve regurgitation,Coron daniel artery disease involving citizen potawatomi coronary artery of citizen potawatomi heart without angina pectoris,Paroxysmal atrial fibrillation (HCC),Stage 3b chronic kidney disease (HCC) Take 2 Tablets by mouth in the morning. 180 Tablet 3 01/15/2024 Active documented as of this encounter (statuses as of 01/22/2024) Active Problems Problem Noted Date Diagnosed Date [...] and concern for bleeding Urge incontinence 08/24/2022 Overweight (BMI 25.0-29.9) 07/13/2022 [...] days Exacerbation Plan BMP Pro-BNP Additional Comments: Euvolemic Iron deficiency anemia 07/28/2021 Last Assessment & Plan: Followed closely by [facility] hematology. No identified cause of [...] knees 03/21/2018 Coronary artery disease invo lving citizen [place] coronary artery of citizen [place]awatomi heart without angina pectoris 03/21/2018 Last Assessment [...] as of this encounter (statuses as of 01/22/2024) Resolved Problems Problem Noted Date Diagnosed Date Resolved Date Hematuria, gross 08/24/2022 10/11/2023 Viral upper respiratory [...] as of this encounter (statuses as of 01/22/2024) Immunizations Name Administration Dates Next Due COVID-19 [...] Telephone Encounter - Jes Sanders RN - 01/22/2024 1:44 PM EDT [facility] Telephonic Nurse Follow-Up Call [facility] Subprogram: Primary Care at Home Follow Up Call Type: Routine follow up call / Status Check Acute issue requiring follow-up call: Other: cellulitis of the L LE Call placed. No answer. LMOM for callback Objective: 01/15/2024 12:06 PM 12/04/2023 12:09 PM 11/30/2023 2:51 PM 11/30/2023 2:47 PM 11/30/2023 2:45 PM VITALS ACROSS ENCOUNTERS BP 104/62 148/68 126/56 114/48 71/52 Pulse 65 82 62 72 Weight 76.9 kg 75.3 kg 75.4 kg BMI 28.22 kg/m2 27.62 kg/m2 27.66 kg/m2 Remote Patient Monitoring: NONE Oxygen Needs: NO supplemental oxygen needs identified DME Needs: NO DME needs identified Medications: New medication(s) added: doxycycline 100 mg - ordered 01/15/24. Last dose 01/21 Torsemide increased to 40 mg daily Subjective: Condition Status: UTC. LMOM for call back Disposition: Follow up call scheduled for tomorrow with BEEF GRADER Wool Grader Next [facility] appt 01/24/24 Future Visits Scheduled: Future Appointments-next 60 days Date/Time Provider Specialty Dept Phone 01/24/2024 2:30 PM Meri Mae, Community Health Marketing Specialist; Berny Power PA-C [facility] [phone] 02/01/2024 9:20 AM [facility], [facility] Mobile Home Draw Laboratory Processing [phone] 02/12/2024 5:30 PM Peggy De RN [facility] [phone] 02/15/2024 9:20 AM [facility], [facility] Draw Laboratory Processing [phone] 02/26/2024 12:30 PM Decker, Nurse Annual Wellness N[facility] Ancillary [phone] 02/29/2024 9:20 AM [facility], [facility] Draw Laboratory Processing [phone] 03/11/2024 3:15 PM Kalpesh Funes MD Urology [phone] 03/14/2024 9:20 AM [facility], [facility] Draw Laboratory Processing [phone] 03/22/2024 3:00 PM (Arrive by 2:45 PM) Nataly Stone PA-C Nephrology [phone] 03/28/2024 8:00 AM [facility], [facility] Draw Laboratory Processing [phone] 04/11/2024 8:00 AM [facility], [facility] Draw Laboratory Processing [phone] 04/25/2024 8:00 AM [facility], [facility] Draw Laboratory Processing [phone] 05/09/2024 8:00 AM [facility], [facility] Draw Laboratory Processing [phone] 05/23/2024 8:00 AM [facility], [facility] Draw Laboratory Processing [phone] 06/06/2024 8:00 AM [facility], [facility] Draw Laboratory Processing [id number] 06/20/2024 8:00 AM [facility], [facility] Draw Laboratory Processing [phone] 07/04/2024 8:00 AM [facility], [facility] Draw Laboratory Processing [id number] 07/18/2024 8:00 AM [facility], [facility] Draw Laboratory Processing [phone] 08/01/2024 8:00 AM [facility], [facility] Draw Laboratory Processing [phone] 08/15/2024 8:00 AM [facility], [facility] Draw Laboratory Processing [phone] 08/29/2024 8:00 AM [facility], [facility] Home Draw Laboratory Processing [phone] 09/12/2024 8:00 AM [facility], [facility] Draw Laboratory Processing [phone] 09/26/2024 8:00 AM [facility], [facility] Draw Laboratory Processing [phone] Jes Sanders, RN documented in this encounter Plan of Treatment Upcoming Encounters Date Type Department Care Team (Late st Contact Info) Description 01/23/2024 11:00 AM EDT Scheduled Telephone [facility], [address] [place] [address] Coordinator, [facility] 132 [facility] [place] [address] 01/24/2024 2:30 PM EDT Telemedicine [facility], [facility] 132 [facility] [place] [address] Berny Power PA-C 132 [facility] [place] [address] Meri Mae, Community Health Marketing Specialist [address] [place] [address] 02/01/2024 9:20 AM EDT Laboratory Lab Mobile Phlebotomy [facility] [place] [facility] [address] [place] [address] [facility] [place] [facility], [facility]ml Mobile Home Draw [address] [place] [address] 02/12/2024 5:30 PM EDT Home Visit [facility], [facility] 132 [facility] [place] [address] Peggy De, RN [address] [place] [address] 02/15/2024 9:20 AM EDT Laboratory Lab Mobile Phlebotomy [facility] [address] [place] [address] [facility] [place], [facility] Mobile Home Draw [address] [place] [address] 02/26/2024 12:30 PM EDT Nurse Only Ancillary [facility] [address] [place] [address] [facility], Nurse [facility] [address] [place] [address] 02/29/2024 9:20 AM EDT Laboratory Lab Mobile Phlebotomy [facility] [facility] [address] [place] [address] [facility] [place], [facility] Mobile Home Draw [address] [place] [address] 03/11/2024 3:15 PM EDT Office Visit Urology, [facility] [address] [place] [address] Kalpesh Funes MD [address] [place] [address] 03/14/2024 9:20 AM EDT Laboratory Lab Mobile Phlebotomy [facility] [address] [place] [address] [facility] [place] [facility], [facility] Mobile Home Draw [address] [place] [address] 03/22/2024 3:00 PM EDT Office Visit Nephrology, [facility] [address] [place] [address] Nataly Stone PA-C [address] [place], [place] [address] 03/28/2024 8:00 AM EDT Laboratory Lab Mobile Phlebotomy [facility] [address] [place] [address] G[facility], Gml Mobile Home Draw [address] [place] [address] 04/11/2024 8:00 AM EDT Laboratory Lab Mobile Phlebotomy [facility] [address] [place] [address] G[facility], Gml Mobile Home Draw [address] [place] [address] 04/25/2024 8:00 AM EDT Laboratory Lab Mobile Phlebotomy [facility] [address] [place] [address] Gmc, Gml Mobile Home Draw [address] [place] [address] 05/09/2024 8:00 AM EDT Laboratory Lab Mobile Phlebotomy [facility] [address] [place] [address] Gmc, Gml Mobile Home Draw [address] [place] [address] 05/23/2024 8:00 AM EDT Laboratory Lab Mobile Phlebotomy [facility] [address] [place] [address] Gmc, Gml Mobile Home Draw [address] [place] [address] 06/06/2024 8:00 AM EDT Laboratory Lab Mobile Phlebotomy [facility] [address] [place] [address] [facility], Gml Mobile Home Draw [address] [place] [address] 06/20/2024 8:00 AM EDT Laboratory Lab Mobile Phlebotomy [facility] [address] [place] [address] G[facility], Gml Mobile Home Draw [address] [place] [address] 07/04/2024 8:00 AM EDT Laboratory Lab Mobile Phlebotomy [facility] [address] [place] [address] [facility], Gml Mobile Home Draw [address] [place] [address] 07/18/2024 8:00 AM EDT Laboratory Lab Mobile Phlebotomy [facility] [address] [place] [address] [facility]mc, Gml Mobile Home Draw [address] [place] [address] 08/01/2024 8:00 AM EDT Laboratory Lab Mobile Phlebotomy [facility] [place] [facility] [address] [place] [address] Gmc, Gml Mobile Home Draw [address] [place] [address] 08/15/2024 8:00 AM EDT Laboratory Lab Mobile Phlebotomy [facility] [place] [address] [place] [address] Gmc, Gml Mobile Home Draw [address] [place] [address] 08/29/2024 8:00 AM EST Laboratory Lab Mobile Phlebotomy [facility] [place] [address] [place] [address] Gmc, Gml Mobile Home Draw [address] [place] [address] 09/12/2024 8:00 AM EST Laboratory Lab Mobile Phlebotomy [facility] [address] [place] [address] Gmc, Gml Mobile Home Draw [address] [place] [address] 09/26/2024 8:00 AM EST Laboratory Lab Mobile Phlebotomy [facility] [address] [place] [address] [facility] [place], [facility] Mobile Home Draw [address] [place], [place] [address] Health Maintenance Due Date Last Done Comments Hepatitis C Screening 1963 Diabetic Foot Exam 03/27/2021 03/27/2020, 08/23/2018 COVID-19 Vaccine (2022- season) 2023 11/03/2021, 12/19/2020, 12/19/2020, Additional history exists HbA1c 10/12/2023 04/12/2023, 03/2023, 03/22/2022, Additional history exists Diabetic Eye Exam 11/01/2023 11/01/2022, , 11/01/2022, Additional history exists Depression Screening 11/02/2023 11/02/2022 GFR 11/04/2023 05/04/2023, 03/23, 03/16/2023, Additional history exists Albumin/Creatinine Ratio 12/27/2023 023, 03/08/2019, 04/09/2014 CKD PHOS USE SMARTSET 74203 12/07/202411/23, 12/26/2022, 06/21/2021 CKD HGB USE SMARTSET 40440 01/17/202501/17, 01/18/2024, 01/04/2024, Additional history exists COLONOSCOPY-EVERY [...] this encounter Medical Devices Implanted Type Area Camera Repairer Device Identifier Shelf Expiration Date Model / Serial / Lot Lens Intraoc 22.5 - [id number] - [id number] Implanted:Qty: 1 on 05/22/2018 by Jasbir Maurer MD at OR [facility] Right: Eye [employer] 11/22/2022 [id number] / [id number] / [id number] Lens Intraoc 21.0 - [id number] - [id number] Implanted:Qty: 1 on 06/05/2018 by Jasbir Maurer MD at OR [facility] Left: Eye [employer]OM[employer] 12/20/2022 [id number] / [id number] / documented as of this encounter Advance [...] Agents on File Name Relationship Healthcare Agent [facility] p Communication Ashley Jose Spouse Health Care Power of Attor mayela Care Teams Sports Anchor Relationship Specialty Start Date End Date Michael Hinton MD [address] [place] [address] PCP - General Family Medicine 08/07/17 documented as of this encounter
--- OUTSIDE RECORDS SUMMARY | 2024-03-01 06:29 | External Medical Summary | Summary of Care ---
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 Ej Comments Pt is homebound per Medicare Guidelines See orders from 01/24/2024 BMP on 01/31 with other labs * Evaluate & Treat - Unlimited Visits (Within 10 days (routine)) - Authorized Specialty Diagnoses / Procedures Referred By Bahman akhtar Referred To Contact HOME CARE / Home Care Diagnoses Stasis ulcer of right lower extremity (HCC) Berny Power PA-C [address] [place] [address] Referral ID Status Reason Start Date Expiration Date Visits Requested Visits Authorized [id number] Authorized Specialty Services Required 01/24/2024 999 999 Question Answer Referral Priority Within 10 days (routine) Where should this appointment be scheduled? Ej Comments Documentation of Rsoj-qz-Taik Encounter Addendum Patient Name: Jesus Jose I certify that this patient is under my care and that I, or a nurse practitioner or physician's assistant prosecuting attorney working with me, had a idrt-ye-eaxc encounter that meets the physician bhpr-vl-vecg encounter requirements with this patient on: 01/24/2024 The encounter with the patient was in whole, or in part, for the following medical condition, which is the primary reason for home health care (List medical condition): Wound care I certify that, based on my findings, the following services are medically necessary home health services: Nursing To provide the following care/treatments: (All hospitalists not following the patient after discharge should complete this section): wound care devi RUFFIN with DSD, change 3xweek Primary Care Physician to follow home care plan of care after discharge: Michael Hinton MD My clinical findings support the need for the above services because: home bound Further, I certify that my clinical findings support that this patient is homebound (i.e. Absences from home require considerable and taxing effort and are for medical reasons or church services or infrequently or of short duration when for other reason) because: Patient with parkinsons disease, fall risk Physician Signature: Date of Signature: Physician Printed Name: Berny Power PA-C Encounter Details Date Type Department Care Team (Late st Contact Info) Description 01/24/2024 2:30 PM EDT Telemedicine lauro at [address] [place] [address] Berny Power PA-C [address] [place] [address] Meri Mae, Community Health Business Continuity Director [address] [place] [address] Stasis ulcer of right lower extremity (HCC)*; 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HCC); Chronic diastolic 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 (HCC); Hypertensive 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); Atrial fibrillation, unspecified type (HCC); FABIANO (generalized anxiety disorder); Dyslipidemia; Acute left ankle pain; Primary parkinsonism (HCC) Allergies Active Allergy Reactions Criticality Noted Date Comments Fabiano Inhibitors Cough 06/09/2017 Carbidopa W-Levodopa 03/17/2021 Constipation Nsaids Rash 05/17/2018 Contraindicated per care asst documented as of this encounter (statuses as of 01/24/2024) Medications Medication Sig Dispensed Refills Start Date End Date Status Glucose Blood (ONETOUCH VERIO) STRPIndications:Ty pe 2 diabetes mellitus with hemoglobin A1c goal of less than 8.0% ([facility]) Use up to 4 times a day E11.9 400 Strip 3 08/29/2018 Active ONETOUCH DELICA LANCETS 33G MISCIndications:Ty pe 2 diabetes mellitus with hemoglobin A1c goal of less than 8.0% ([facility]) Use up to 4 times a [...] mitral valve regurgitation,Krista nary artery disease involving [place] coronary artery of [place] heart without angina pectoris,Paroxysma l atrial fibrillation [...] as of this encounter (statuses as of 01/24/2024) Active Problems Problem Noted Date Diagnosed Date [...] knees 03/21/2018 Coronary artery disease invo lving [place] coronary artery of [place] heart without angina pectoris 03/21/2018 Last Assessment [...] as of this encounter (statuses as of 01/24/2024) Resolved Problems Problem Noted Date Diagnosed Date [...] scanned document from 11/13/[address] [facility]. 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y [...] as of this encounter (statuses as of 01/24/2024) Immunizations Name Administration Dates Next Due COVID-19 [...] Sign Reading Time Taken Comments Blood Pressure 135/60 01/24/2024 1:34 PM EDT Pulse 93 01/24/2024 1:34 PM EDT Temperature 37.5 C (99.5 F) 01/24/2024 1:34 PM ED T Respiratory Rate - - Oxygen Saturation 95% 01/24/2024 1:34 PM EDT Inhaled Oxygen Concentration - - Weight - - Height - - Body Mass Index - - documented in this encounter Progress Notes * Meri Mae, Community Health Business Continuity Director - 01/24/2024 1:31 PM EDT Telemedicine visit: Yes Patient location: HOME. I was not in a hospital or clinic location. After connecting through televideo, patient was verified with two unique identifiers. Patient (or authorized legal distribution sales representative) was then informed that this was a Telemedicine visit and being conducted confidentially over secure lines. Methods to assure confidentiality were taken. Patient acknowledged consent and understanding of privacy and security of the Telemedicine visit. The patient agreed to participate. Community Health Business Continuity Director (TRAY) documentation: CHW facilitated telehealth visit with provider Berny Mae- Community Health Worker 1 Support Services/[facility] [email or web address] * Berny Power PA-C - 01/24/2024 9:27 AM EDT Images from the original note were not included. [facility] Problem Oriented Charting Provider Visit Date: 01/24/2024 Time: 9:27 AM [facility] Sub-Program: Primary Care at Home Assessment and Plan #1 Stasis ulcer of right lower extremity (HCC) (Primary) Assessment & Plan: Aquacel ag and dsd Monitor closely for s/s of cellulitis Will place HH ref to assist with dressings Orders: - Home Health Referral OP #2 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HCC) Assessment & Plan: Continue aricept #3 Chronic diastolic 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 (HCC) #4 Hypertensive heart and kidney disease with chronic [...] to encourage leg elevation Low sodium diet #5 Atrial fibrillation, unspecified type (HCC) Assessment & Plan: Rate controlled on metoprolol Not on anticoag due to anemia and bleeding risk #6 FABIANO (generalized anxiety disorder) #7 Dyslipidemia #8 Acute left ankle pain -finish medrol dose pack as ordered #9 Primary parkinsonism (HCC) Assessment & Plan: -Continue amantadine Followed by Dr. Shannon Bowman via telemedicine every 6 months Additional Medical Decision Making: Patient lives in single level home with spouse and daughter manages medications Follows with Dr Shannon Zhang in [place] via telemed for PD Has [facility] phone f/u tomorrow and monday HH ref for wound care RLE Update BMP with next labs Scheduled appointments in the next 60 days: Future Appointments-next 60 days Date/Time Provider Specialty Dept Phone 01/24/2024 2:30 PM Meri Mae, Community Health Business Continuity Director; Berny Power PA-C [facility] [phone] 01/25/2024 9:30 AM Coordinator, José Miguel Giuliano [facility] [phone] 01/26/2024 9:00 AM Coordinator, Gah Giuliano [facility] [phone] 02/01/2024 9:20 AM [facility] Mobile [facility] Draw Laboratory Processing [phone] 02/12/2024 5:30 PM Peggy De RN [facility] [phone] 02/15/2024 9:20 AM [facility] Laboratory Processing [phone] 02/26/2024 12:30 PM Decker, Nurse Annual Wellness [facility] [phone] 02/29/2024 9:20 AM [facility] Laboratory Processing [phone] 03/11/2024 3:15 PM Kalpesh Funes MD Urology [phone] 03/14/2024 9:20 AM [facility] Processing [phone] 03/22/2024 3:00 PM (Arrive by 2:45 PM) Nataly Stone PA-C Nephrology [phone] 03/28/2024 8:00 AM [facility] Laboratory Processing [phone] 04/11/2024 8:00 AM [facility] Processing [phone] 04/25/2024 8:00 AM [facility] Laboratory Processing [phone] 05/09/2024 8:00 AM [facility] Processing [phone] 05/23/2024 8:00 AM [facility] Processing [phone] 06/06/2024 8:00 AM [facility] Laboratory Processing [phone] 06/20/2024 8:00 AM [facility] Processing [phone] 07/04/2024 8:00 AM [facility] Processing [phone] 07/18/2024 8:00 AM [facility] Processing [phone] 08/01/2024 8:00 AM [facility] Processing [phone] 08/15/2024 8:00 AM [facility], [facility] Mobile Home Draw Laboratory Processing [phone] 08/29/2024 8:00 AM [facility], [facility] Mobile Home Draw Laboratory Processing [phone] 09/12/2024 8:00 AM [facility], [facility] Mobile Home Draw Laboratory Processing [phone] 09/26/2024 8:00 AM [facility], [facility] Mobile Home Draw Laboratory Processing [phone] A total of 25 minutes was spent face to face (via video-based telemedicine if designated as a telemedicine visit) Subjective Subjective Is this a Telemedicine Visit? Yes, Patient location: HOME. I was not in a hospital or clinic location. After connecting through televideo, patient was verified with two unique identifiers. Patient (or authorized legal distribution sales representative) was then informed that this was a Telemedicine visit and being conducted confidentially over secure lines. Methods to assure confidentiality were taken. Patient acknowledged consent and understanding of privacy and security of the Telemedicine visit. The patient agreed to participate. Reason For [facility] Visit: Follow-Up Current Concerns: Jesus Jose is a 78 year old male seen today for a [facility] provider visit. PMH includes dementia, Parkinsons, HTN, CHF, afib, CKD3, DM2, CAD s/p CABGx3 Today's concerns are: Ongoing pain in left ankle Was seen by RN yesterday, medrol dose pack ordered for possible gout Medrol dose pack just started today Also using apap prn for pain Denies fever/chills Limited ambulation due to pain Denies falls Ongoing swelling in legs Some open wounds on right leg with drainage Torsemide increased to 40mg daily last week Tries to keep legs elevated during the day Recently completed doxy for cellulitis of legs Has not been monitoring weight due to pain and difficulty standing Additional Objective Objective Vitals: 01/24/24 1334 Temp: 37.5 C (99.5 F) Pulse: 93 SpO2: 95% BP: 135/60 Last Weights: Wt Readings from Last 3 Encounters: 01/15/24 76.9 kg (169 lb 9.6 oz) 12/04/23 75.3 kg (166 lb) 11/30/23 75.4 kg (166 lb 3.2 oz) Last BPs: BP Readings from Last 4 Encounters: 01/24/24 135/60 01/23/24 128/62 01/15/24 104/62 12/04/23 148/68 General: alert and no distress Neuro: alert & oriented x 2 with fluent speech Heart: regular rate & rhythm and no murmur Lungs: decreased breath sounds, few rales, no wheezing Ext: +edema and excoriation, 3 small ulcers to RLE with serous drainage Lab Review: I have reviewed the following results: Imaging results in the last 6 months No imaging results in the last 6 months BMP results Recent Labs Units 05/04/23 1059 04/04/23 1018 03/16/23 0908 SODIUM - [facility] mmol/L 143 142 142 POTASSIUM - [facility] mmol/L 4.5 4.5 4.3 CHLORIDE - [facility] mmol/L 106 101 101 CO2 - [facility] mmol/L 23 20* 27 CREATININE - [facility] mg/dL 1.9* 1.8* 1.7* BUN - [facility] mg/dL 37* 28* 27* Lipid panel results Recent Labs Units 01/18/24 1026 10/19/23 1050 12/26/22 0927 CHOLESTEROL - [facility] mg/dL 156 213* 267* LDL CHOLESTEROL (CALCULATED) - [facility] mg/dL 69 127 178* HDL CHOLESTEROL - [facility] mg/dL 72 63 61 TRIGLYCERIDES - [facility] mg/dL 74 116 141 CBC results Recent Labs Units 01/18/24 1026 01/04/24 1106 12/21/23 1034 WBC K/uL 3.52* 4.76 4.55 HGB g/dL 10.4* 8.6* 9.8* HCT % 32.4* 27.1* 30.4* PLT K/uL 131* 179 164 HbA1c results Recent Labs Units 04/12/23 1300 12/26/22 0927 03/22/22 1055 HEMOGLOBIN A1C - [facility] % 6.1* 5.9* 5.5 TSH results Recent Labs Units 12/12/22 1143 05/20/22 1206 TSH - [facility] uIU/mL 4.24* 3.47 Berny Power PA-C 9:27 AM *Communication sent to PCP (via autofax if non[facility]), [facility] Health Care Team members,relevant Specialty Care Physicians* documented in this encounter Miscellaneous Notes * Assessment & Plan Note - Berny Power PA-C - 01/24/2024 2:41 PM EDT Associated Problem(s): Stasis ulcer of right lower extremity (HCC) Aquacel ag and dsd Monitor closely for s/s of cellulitis Will place HH ref to assist with dressings * Assessment & Plan Note - Berny Power PA-C - 01/24/2024 2:40 PM EDT Associated Problem(s): Atrial fibrillation (HCC) Rate controlled on metoprolol Not on anticoag due to anemia and bleeding risk * Assessment & Plan Note - Berny Power PA-C - 01/24/2024 2:40 PM EDT Associated Problem(s): 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HCC) Continue aricept * Assessment & Plan Note - Berny Power PA-C - 01/24/2024 2:39 PM EDT Associated Problem(s): Primary parkinsonism (HCC) -Continue amantadine Followed by Dr. Shannon Bowman via telemedicine every 6 months * Assessment & Plan Note - Berny Power PA-C - 01/24/2024 2:39 PM EDT Associated Problem(s): Hypertensive 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) "RED FLAG" HF Symptoms: Leg Swelling (Examples: [...] to encourage leg elevation Low sodium diet documented in this encounter Plan of Treatment Upcoming Encounters Date Type Department Care Team (Late st Contact Info) Description 01/25/2024 9:30 AM EDT Scheduled Telephone [facility], [facility] [address] [place] [address] Coordinator, [facility] [address] [place] [address] 01/26/2024 9:00 AM EDT Scheduled Telephone [facility], [facility] [address] [place] [address] Coordinator, [place] [address] [address] [place] [address] 02/01/2024 9:20 AM EDT Laboratory Lab Mobile Phlebotomy [facility] [address] [place] [address] [facility], [facility] Mobile Home Draw [address] [place] [address] 02/12/2024 5:30 PM EDT Home Visit [facility], [facility] [address] [place] [address] Peggy De RN [address] [place] [address] 02/15/2024 9:20 AM EDT Laboratory Lab Mobile Phlebotomy [facility] [address] [place] [address] [facility], [facility] Mobile Home Draw [address] [place] [address] 02/26/2024 12:30 PM EDT Nurse Only Ancillary [facility] [address] [place] [address] [facility], Nurse Annual Wellness [facility] [address] [place] [address] 02/29/2024 9:20 AM EDT Laboratory Lab Mobile Phlebotomy [facility] [address] [place] [address] [facility], [facility] Mobile Home Draw [address] [place] [address] 03/11/2024 3:15 PM EDT Office Visit Urology, [facility] [address] [place] [address] Kalpesh Funes MD [address] [address] 03/14/2024 9:20 AM EDT Laboratory Lab Mobile Phlebotomy [facility] [address] [place] [address] [facility], [facility] Mobile Home Draw [address] [place] [address] 03/14/2024 3:00 PM EDT Home Visit [facility], [facility] [address] [place] [address] Berny Power PA-C [address] [facility] [place] [address] 03/22/2024 3:00 PM EDT Office Visit Nephrology, [facility] [place] [address] [place] [address] ZemaitisNataly PA-C [address] [place] [address] 03/28/2024 8:00 AM EDT Laboratory Lab Mobile Phlebotomy [facility] [address] [place] [address] [facility] Mobile Home Draw [address] [place] [address] 04/11/2024 8:00 AM EDT Laboratory Lab Mobile Phlebotomy [facility] [address] [place] [address] [facility] Draw [address] [place] [address] 04/25/2024 8:00 AM EDT Laboratory Lab Mobile Phlebotomy [facility] [address] [place] [address] [facility] Home Draw [address] [place] [address] 05/09/2024 8:00 AM EDT Laboratory Lab Mobile Phlebotomy [facility] [address] [place] [address] [facility] Draw [address] [place] [address] 05/23/2024 8:00 AM EDT Laboratory Lab Mobile Phlebotomy [facility] [address] [place] [address] [facility] Draw [address] [place] [address] 06/06/2024 8:00 AM EDT Laboratory Lab Mobile Phlebotomy [facility] [address] [place] [address] [facility] Draw [address] [place] [address] 06/20/2024 8:00 AM EDT Laboratory Lab Mobile Phlebotomy [facility] [address] [place] [address] [facility] Draw [address] [place] [address] 07/04/2024 8:00 AM EDT Laboratory Lab Mobile Phlebotomy [facility] [address] [place] [address] [facility] Draw [address] [place] [address] 07/18/2024 8:00 AM EDT Laboratory Lab Mobile Phlebotomy [facility] [address] [place] [address] [facility] Draw [address] [place] [address] 08/01/2024 8:00 AM EDT Laboratory Lab Mobile Phlebotomy [facility] [address] [place] [address] [facility] Draw [address] [place] [address] 08/15/2024 8:00 AM EDT Laboratory Lab Mobile Phlebotomy [facility] [address] [place] [address] [facility] Draw [address] [place] [address] 08/29/2024 8:00 AM EST Laboratory Lab Mobile Phlebotomy [facility] [address] [place] [address] [facility] Mobile Home Draw [address] [place] [address] 09/12/2024 8:00 AM EST Laboratory Lab Mobile Phlebotomy [facility] [address] [place] [address] [facility] Draw [address] [place] [address] 09/26/2024 8:00 AM EST Laboratory Lab Mobile Phlebotomy [facility] [address] [place] [address] [facility], [facility] Mobile Home Draw [address] [place] [address] Scheduled Orders Name Type Priority Associated Diagnoses Orde r Schedule BASIC METABOLIC PANEL Lab Routine Chronic diastolic 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 (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) Expected: 02/01/2024 (Approximate), Expires: 01/23/2025 Scheduled Referrals Name Type Priority Associated Diagnoses Orde r Schedule HOME HEALTH REFERRAL OP Referral Within 10 days (routine) Stasis ulcer of right lower extremity (HCC) Ordered: 01/24/2024 HOME PHLEBOTOMY REFERRAL OP Referral Within 10 days (routine) 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HCC) Chronic diastolic 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 (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) Ordered: 01/24/2024 Health Maintenance Due Date Last Done Comments [...] 023, 03/08/2019, 04/09/2014 CKD PHOS USE SMARTSET 74963 12/07/202411/23, 12/26/2022, 06/21/2021 CKD HGB USE SMARTSET 22029 01/17/202501/17, 01/18/2024, 01/04/2024, Additional history exists COLONOSCOPY-EVERY [...] encounter Medical Devices Implanted Type Area Supervisor [employer] Device Identifier Shelf Expiration Date Model / Serial / Lot Lens Intraoc 22.5 - [id number] - [id number] Implanted:Qty: 1 on 05/22/2018 by Jasbir Maurer MD at [facility] Right: Eye [employer] 11/22/2022 [id number] / [id number] / [id number] Lens Intraoc 21.0 - [id number] - [id number] Implanted:Qty: 1 on 06/05/2018 by Jasbir Maurer MD at OR [facility] Left: Eye [employer] 12/20/2022 [id number] / [id number] / documented as of this encounter Visit Diagnoses Diagnosis Stasis ulcer of right lower extremity (HCC)- Primary 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HCC) Chronic diastolic 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 (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) Atrial fibrillation, unspecified type (HCC) FABIANO (generalized anxiety disorder) Generalized anxiety disorder Dyslipidemia Other and unspecified hyperlipidemia Acute left ankle pain Primary parkinsonism (HCC) Paralysis agitans documented in this encounter Advance Directives Latest [...] Agents on File Name Relationship Healthcare Agent [facility] Communication Ashley Jose Spouse Health Care Power of Attor mayela Care Teams Lockstitch Machine Operator Relationship Specialty Start Date End Date Michael Hinton MD [address] [place] [address] PCP - General Family Medicine 08/07/17 documented as of this encounter
--- OUTSIDE RECORDS SUMMARY | 2024-03-01 06:29 | External Medical Summary | Summary of Care ---
Author Name Unknown Organization [facility] Address [address] [place] [facility] [place] [place] [address] Phone [phone] Care Team Providers Care Music Adapter Name Role Phone Michael Hinton MD Primary Care Provider [phone] Reason for Visit * Reason Onset Date Comments [facility]: Maintenance 01/25/2024 Encounter Details Date Type Department Care Team (Late st Contact Info) Description 01/25/2024 9:30 AM EDT Scheduled Telephone [facility], [facility] [address] [facility] [place] [address] Coordinator, [facility] [address] [place] [address] Allergies Active Allergy Reactions Criticality Noted Date Comments Fabiano Inhibitors Cough 06/09/2017 Carbidopa W-Levodopa 03/17/2021 Constipation Nsaids Rash 05/17/2018 Contraindicated per insurance representative documented as of this encounter (statuses as [...] mitral valve regurgitation,Krista nary artery disease involving teller coronary artery of teller heart without angina pectoris,Paroxysma l atrial fibrillation [...] Regimen: Beta Sheldon Therapy: Metoprolol Succinate (ER) FABINAO Inhibitor/ARB Therapy: No FABIANO/ARB/ARNI secondary to: cough Diuretic therapy: Torsemide Self - Management Plan Double dose of Torsemide for 3 days Exacerbation Plan BMP Pro-BNP Additional Comments: On increased torsemide, 40mg daily since last week Continue to encourage leg elevation Low sodium diet Iron deficiency anemia 07/28/2021 Last Assessment & Plan: Followed closely by [facility] hematology. No identified cause of [...] knees 03/21/2018 Coronary artery disease invo lving teller coronary [...] document from 11/13/[address] [place] [facility] [place] 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y [...] mRNA, LNP-s, No Pre serve, 2-Dose Series ([employer] Apps) 11/03/2021,12/19/2020,11/28/2020 Covid-19 Ad26, Single Dose ([employer]) 12/19/2020,11/28/2020 DTaP Dipth/Tet/Acell Pertussis (Infanrix), Peds 10/24/2019 [...] Cartagena RN - 01/25/2024 11:08 AM EDT [facility] at Home Telephonic Nurse Follow-Up Call [facility] Subprogram: Primary Care at Home [...] 28.22 kg/m2 27.62 kg/m2 Remote Patient Monitoring: [facility] [place]: no recording today Oxygen Needs: NO [...] up call scheduled for tomorrow with [employer] Sales Vendor Future Visits Scheduled: Future Appointments-next 60 days Date/Time Provider Specialty Dept Phone 01/26/2024 9:00 AM CoordinatorSnehal [facility] [phone] 02/01/2024 9:20 AM [facility], [facility] Draw Laboratory Processing [phone] 02/12/2024 5:30 PM Peggy De RN [facility] [phone] 02/15/2024 9:20 AM [facility] Laboratory Processing [phone] 02/26/2024 12:30 PM Decker, Nurse Annual Wellness Niru Ancillary [phone] 02/29/2024 9:20 AM [facility] Laboratory Processing [phone] 03/11/2024 3:15 PM Kalpesh Funes MD Urology [phone] 03/14/2024 9:20 AM [facility] Laboratory Processing [phone] 03/14/2024 3:00 PM Berny Power PA-C [facility] [phone] 03/22/2024 3:00 PM (Arrive by 2:45 PM) Nataly Stone PA-C Nephrology [phone] 03/28/2024 8:00 AM [facility], [facility] Draw Laboratory Processing [phone] 04/11/2024 8:00 AM [facility], [facility] Laboratory Processing [phone] 04/25/2024 8:00 AM [facility], [facility] Draw Laboratory Processing [phone] 05/09/2024 8:00 AM [facility], [facility] Draw Laboratory Processing [phone] 05/23/2024 8:00 AM Gmc, [facility] Draw Laboratory Processing [phone] 06/06/2024 8:00 AM Gmc, [facility] Draw Laboratory Processing [phone] 06/20/2024 8:00 AM Gmc, [facility] Draw Laboratory Processing [phone] 07/04/2024 8:00 AM Gmc, [facility] Draw Laboratory Processing [phone] 07/18/2024 8:00 AM Gmc, [facility] Draw Laboratory Processing [phone] 08/01/2024 8:00 AM Gmc, [facility] Draw Laboratory Processing [phone] 08/15/2024 8:00 AM Gmc, [facility] Draw Laboratory Processing [phone] 08/29/2024 8:00 AM G[facility], [facility] Draw Laboratory Processing [phone] 09/12/2024 8:00 AM Gmc, [facility] Draw Laboratory Processing [phone] 09/26/2024 8:00 AM G[facility], [facility] Draw Laboratory Processing [phone] Shelbie Cartagena RN Refinery Operator [facility] documented in this encounter Plan of Treatment Upcoming Encounters Date Type Department Care Team (Late st Contact Info) Description 01/26/2024 9:00 AM EDT Scheduled Telephone [facility] [address] [place] [address] Coordinator, [address] [place] [address] 02/01/2024 9:20 AM EDT Laboratory Lab Mobile Phlebotomy [facility] [address] [place] [address] Gmc, [facility] Mobile Home Draw [address] [place] [address] 02/12/2024 5:30 PM EDT Home Visit [facility] [place], [facility] [address] [facility] [place] [address] Peggy De, RN [address] [place] [address] 02/15/2024 9:20 AM EDT Laboratory Lab Mobile Phlebotomy [facility] [address] [place] [address] [facility] Mobile Home Draw [address] [place] [address] 02/26/2024 12:30 PM EDT Nurse Only Ancillary [facility] [address] [place] [address] [facility], Nurse [facility] Wellness [facility] [address] [place] [address] 02/29/2024 9:20 AM EDT Laboratory Lab Mobile Phlebotomy [facility] [address] [place] [address] [facility] Mobile Home Draw [address] [place] [address] 03/11/2024 3:15 PM EDT Office Visit Urology, [facility] [address] [place] [address] Kalpesh Funes MD [address] [place] [address] 03/14/2024 9:20 AM EDT Laboratory Lab Mobile Phlebotomy [facility] [address] [place] [address] [facility] Mobile Home Draw [address] [place] [address] 03/14/2024 3:00 PM EDT [facility] Visit [facility] [place], [facility] 132 [facility] [place] [address] Berny Power PA-C 132 [facility] [place] [address] 03/22/2024 3:00 PM EDT Office Visit Nephrology, [facility] [address] [place] [address] ZemaitisNataly PA-C [address] [facility] [place], [place] [address] 03/28/2024 8:00 AM EDT Laboratory Lab Mobile Phlebotomy [facility] [address] [place] [address] Gmc, Gml Mobile Home Draw [address] [place] [address] 04/11/2024 8:00 AM EDT Laboratory Lab Mobile Phlebotomy [facility] [address] [place] [address] Gmc, Gml Mobile Home Draw [address] [place] [address] 04/25/2024 8:00 AM EDT Laboratory Lab Mobile Phlebotomy [facility] [address] [place] [address] Gm, Gml Mobile Home Draw [address] [place] [address] 05/09/2024 8:00 AM EDT Laboratory Lab Mobile Phlebotomy [facility] [address] [place] [address] Gmc, Gml Mobile Home Draw [address] [place] [address] 05/23/2024 8:00 AM EDT Laboratory Lab Mobile Phlebotomy [facility] [address] [place] [address] Gmc, Gml Mobile Home Draw [address] [place] [address] 06/06/2024 8:00 AM EDT Laboratory Lab Mobile Phlebotomy [facility] [address] [place] [address] Gmc, [facility] Mobile Home Draw [address] [place] [address] 06/20/2024 8:00 AM EDT Laboratory Lab Mobile Phlebotomy [facility] [address] [place] [address] Gmc, [facility] Mobile Home Draw [address] [place] [address] 07/04/2024 8:00 AM EDT Laboratory Lab Mobile Phlebotomy [facility] [address] [place] [address] Gmc, [facility] Mobile Home Draw [address] [place] [address] 07/18/2024 8:00 AM EDT Laboratory Lab Mobile Phlebotomy [facility] [address] [place] [address] Gmc, Gml Mobile Home Draw [address] [place] [address] 08/01/2024 8:00 AM EDT Laboratory Lab Mobile Phlebotomy [facility] [address] [place] [address] Gmc, [facility] Mobile Home Draw [address] [place] [address] 08/15/2024 8:00 AM EDT Laboratory Lab Mobile Phlebotomy [facility] [address] [place] [address] Gmc, Gml Mobile Home Draw [address] [place] [address] 08/29/2024 8:00 AM EST Laboratory Lab Mobile Phlebotomy [facility] [address] [place] [address] Gmc, [facility]ml Mobile Home Draw [address] [place] [address] 09/12/2024 8:00 AM EST Laboratory Lab Mobile Phlebotomy [facility] [address] [place] [address] [facility] Home Draw [address] [place] [address] 09/26/2024 8:00 AM EST Laboratory Lab Mobile Phlebotomy [facility] [address] [place] [address] [facility] Mobile Home Draw [address] [place] [address] Health Maintenance Due Date Last Done Comments [...] 023, 03/08/2019, 04/09/2014 CKD PHOS USE SMARTSET 57460 12/07/202411/23, 12/26/2022, 06/21/2021 CKD HGB USE SMARTSET 27956 01/17/202501/17, 01/18/2024, 01/04/2024, Additional history exists COLONOSCOPY-EVERY [...] this encounter Medical Devices Implanted Type Area Marine Engine Machinist Device Identifier Shelf Expiration Date Model / Serial / Lot Lens Intraoc 22.5 - [id number] - [id number] Implanted:Qty: 1 on 05/22/2018 by Jasbir Maurer MD at OR [facility] Right: Eye [employer] 11/22/2022 [id number] / [id number] / [id number] Lens Intraoc 21.0 - [id number] - [id number] Implanted:Qty: 1 on 06/05/2018 by Jasbir Maurer MD at OR [facility] Left: Eye [employer]OM[employer] 12/20/2022 [id number] / [id number] / documented as of this encounter Advance [...] Care Power of Attor mayela Care Teams Music Adapter Relationship Specialty Start Date End Date Michael Hinton MD [address] [place] [address] PCP - General Family Medicine 08/07/17 documented as of this encounter
--- OUTSIDE RECORDS SUMMARY | 2024-03-01 06:29 | External Medical Summary | Summary of Care ---
Author Name Unknown Organization [facility] Address [address] [facility] [place] [address] Phone [phone] Care Team Providers Care Assisted Living Home Director Name Role Phone Michael Hinton MD Primary Care Provider [phone] Reason for Visit * Reason Onset Date Comments [facility]: Acute 01/23/2024 Encounter Details Date Type Department Care Team (Late st Contact Info) Description 01/23/2024 Telephone [facility], [facility] [address] [place] [address] [facility], Nurse [address] [place] [address] [facility]: Acute Allergies Active Allergy Reactions Criticality Noted Date Comments Fabiano Inhibitors Cough 06/09/2017 Carbidopa W-Levodopa 03/17/2021 Constipation Nsaids Rash 05/17/2018 Contraindicated per manager customs documented as of this encounter (statuses as of 01/23/2024) Medications Medication Sig Dispensed Refills Start Date [...] 11/05/2024 Active Torsemide 20 MG Oral Tablet (Demadex)Indication s:Nonrheumatic mitral valve regurgitation,Coron daniel artery disease involving berry creek coronary artery of berry creek heart without angina pectoris,Paroxysmal atrial fibrillation (HCC),Stage 3b chronic kidney disease (HCC) Take 2 Tablets by mouth in the morning. 180 Tablet 3 01/15/2024 Active documented as of this encounter (statuses as of 01/23/2024) Active Problems Problem Noted Date Diagnosed Date [...] Last Assessment & Plan: Followed closely by [facility] hematology. No identified cause of HUNTER. [...] knees 03/21/2018 Coronary artery disease invo lving berry creek coronary artery of berry creek heart without angina pectoris 03/21/2018 Last [...] as of this encounter (statuses as of 01/23/2024) Resolved Problems Problem Noted Date Diagnosed Date [...] document from 11/13/[address] [place] [place]. Coronary artery disease [...] as of this encounter (statuses as of 01/23/2024) Immunizations Name Administration Dates Next Due COVID-19 [...] encounter Miscellaneous Notes * Telephone Encounter - Dixie Mera RN - 01/23/2024 8:47 AM EDT Communication Note Name: Jesus Jose Situation: 78 yo male in [place] Background: HF, CKD, CAD, HTN, DM 2, Parkinsons, Dementia, recent cellulitis RLE Assessment: Pt's called to notify [facility] that the pt is not able to be weighed today as he is c/renate much pain in his left ankle. He woke her up at 12 am with c/o pain and she did give him 1000mg Tylenol at that time and he did then sleep. This morning he is not able to get out of his recliner even with the help of his and daughter due to the pain. He cannot weight bear on the left foot/ankle. Denies injury to the LLE, denies fall. His is concerned that maybe it is gout? He does nothave a hx of gout. Left ankle and foot are swollen and a little swelling up the lower left leg but not to the knee. The left ankle is not hot and it is not red. It is not deformed nor crooked. The ptdoes have cellulitis to the RLE which is still seeping yellow fluid. The pt did complete the antibiotic. Denies fever, states that the pt is "always cold". Denies NVD. He may be a little more SOB. The pt has Parkinsons and does have some dementia. His is concerned how they are supposed to carefor the pt if he cannot stand up and get out of his recliner chair?! Recommendation: acute HV Care team availability: OSITO De RNCM- scheduled for around 11:30am today- outgoing call to the pt's and notifiedher of same Acute nurse: none MIH: N/A [facility] morning caregiver Acute Call Date: 01/23/2024 Time: 8:47 AM Name: Jesus Jose : 1945 Caller: Ashley Relationship to pt- Chief Complaint Patient presents with [facility]: Acute HPI: Jesus Jose is a 78 year old male whose is calling [facility] Int[facility] to report that the pt is having so much pain in his left ankle today that he is not able to stand, they cannot weigh him today. Nursing Assessment: Patient's chief complaint for this call: Pt's called to notify [facility] that the pt is not able to be weighed today as he is c/o so much pain in his left ankle. He woke her up at 12 am with c/o pain and she did give him 1000mg Tylenol at that time and he did then sleep. This morning he is not able to get out of his recliner even with the help of his and daughter due to the pain. He cannot weight bear on the left foot/ankle. Denies i njury to the LLE, denies fall. His is concerned that maybe it is gout? He does not have a hx of gout. Left ankle and foot are swollen and a little swelling up the lower left leg but not to the knee. The left ankle is not hot and it is not red. It is not deformed nor crooked. The pt does have cellulitis to the RLE which is still seeping yellow fluid. The pt did complete the antibiotic. Deniesfever, states that the pt is "always cold". Denies NVD. He may be a little more SOB. The pt has Parkinsons and does have some dementia. His is concerned how they are supposed to care for the pt if he cannot stand up and get out of his recliner chair?! Pt's states she can take pictures of BLE and email them to this morning caregiver- they attempted but were not able. Pain Has pain Pain level: not quantified Location: left ankle Quality of Pain: painful Does the pain radiate: Unknown Baseline Assessment Able to performing ADLs at baseline (walking, daily tasks, etc.): No Chief Complaint is related to a chronic condition: Unknown Patient prescribed oxygen? Yes, 2L/min Patient has been ordered DME equipment (assistive devices, respiratory equipment, etc.): Yes Describe DME devices: walker Patient is using DME device as directed: Yes Medication Reconciliation: (See medication list) Received flu shot this season: Yes Taking medication as ordered: Yes Medications ordered/taking to treat reason for call: Yes, PRN medication(s) ES Tylenol Heart failure symptoms: No COPD exacerbation symptoms: No Reinforcement Education: Continue to take all medications as prescribed Safety with all transfers and ambulation Maintain position of comfort, keep BLE elevated Have the pt take Tylenol 1000mg now Monitor for worsening symptoms to report: fever, chills, increased swelling to BLE, redness or warmth or red streaks to LE, increased pain, inability to stand to transfer or ambulate, increased weakness, lethargy, increased confusion, NVD Treatment/Plan: (need to report) Level of call: Acute Appointment scheduled for same day: yes Provider Name: Marium DELGADILLO Treatment plan until appointment: as above [place] [facility] [place] Scheduled 24/ 48 hr f/u calls Call back instructions provided to patient. Dixie PRINCE, RN [facility] Intake Triage Coordinator [phone] documented in this encounter Plan of Treatment Upcoming Encounters Date Type Department Care Team (Late st Contact Info) Description 01/23/2024 11:00 AM EDT Scheduled Telephone [facility] [address] [place] [address] Coordinator, [facility] [address] [place] [address] 01/23/2024 11:30 AM EDT [facility] Visit [facility] [address] [place] [address] Peggy De RN [address] [place] [address] 01/24/2024 2:30 PM EDT Telemedicine [facility], [facility] [address] [place] [address] Berny Power PA-C [address] [place] [address] Meri Mae, [facility] [address] [place] [address] 02/01/2024 9:20 AM EDT Laboratory Lab Mobile Phlebotomy [facility] [address] [place] [address] [facility] Mobile Home Draw [address] [place] [address] 02/12/2024 5:30 PM EDT Home Visit [facility], [facility] [address] [place] [address] Peggy De RN [address] [place] [address] 02/15/2024 9:20 AM EDT Laboratory Lab Mobile Phlebotomy [facility] [address] [place] [address] [facility] Mobile Home Draw [address] [place] [address] 02/26/2024 12:30 PM EDT Nurse Only Ancillary [facility] [address] [place] [address] Decker, Nurse [employer] [facility] [employer] [facility] Wellness [facility] [address] [facility] [address] 02/29/2024 9:20 AM EDT Laboratory Lab Mobile Phlebotomy [facility] [address] [place] [address] [facility] Mobile Home Draw [address] [place] [address] 03/11/2024 3:15 PM EDT Office Visit Urology, [facility] [address] [place] [address] Kalpesh Funes MD 27 [facility] [address] [place] [address] 03/14/2024 9:20 AM EDT Laboratory Lab Mobile Phlebotomy [facility] [address] [place] [address] [facility] Mobile Home Draw [address] [place] [address] 03/22/2024 3:00 PM EDT Office Visit Nephrology, [facility] [address] [facility] [place] [address] ZemaitisNatayl PA-C [address] [facility] [address] 03/28/2024 8:00 AM EDT Laboratory Lab Mobile Phlebotomy [facility] [address] [place] [address] [facility] Mobile Home Draw [address] [place] [address] 04/11/2024 8:00 AM EDT Laboratory Lab Mobile Phlebotomy [facility] [address] [place] [address] [facility], [facility] Mobile Home Draw [address] [place] [address] 04/25/2024 8:00 AM EDT Laboratory Lab Mobile Phlebotomy [facility] [address] [place] [address] Gm, Gml Mobile Home Draw [address] [place] [address] 05/09/2024 8:00 AM EDT Laboratory Lab Mobile Phlebotomy [facility] [address] [place] [address] Gmc, Gml Mobile Home Draw [address] [place] [address] 05/23/2024 8:00 AM EDT Laboratory Lab Mobile Phlebotomy [facility] [address] [place] [address] Gmc, Gml Mobile Home Draw [address] [place] [address] 06/06/2024 8:00 AM EDT Laboratory Lab Mobile Phlebotomy [facility] [address] [place] [address] Gmc, Gml Mobile Home Draw [address] [place] [address] 06/20/2024 8:00 AM EDT Laboratory Lab Mobile Phlebotomy [facility] [address] [place] [address] Gmc, Gml Mobile Home Draw [address] [place] [address] 07/04/2024 8:00 AM EDT Laboratory Lab Mobile Phlebotomy [facility] [address] [place] [address] Gmc, Gml Mobile Home Draw [address] [place] [address] 07/18/2024 8:00 AM EDT Laboratory Lab Mobile Phlebotomy [facility] [address] [place] [address] Gmc, Gml Mobile Home Draw [address] [place] [address] 08/01/2024 8:00 AM EDT Laboratory Lab Mobile Phlebotomy [facility] [address] [place] [address] Gmc, Gml Mobile Home Draw [address] [place] [address] 08/15/2024 8:00 AM EDT Laboratory Lab Mobile Phlebotomy [facility] [address] [place] [address] Gm, Gml Mobile Home Draw [address] [place] [address] 08/29/2024 8:00 AM EST Laboratory Lab Mobile Phlebotomy [facility] [address] [place] [address] Gm, Gml Mobile Home Draw [address] [place] [address] 09/12/2024 8:00 AM EST Laboratory Lab Mobile Phlebotomy [facility] [address] [place] [address] [facility] Mobile Home Draw [address] [place] [address] 09/26/2024 8:00 AM EST Laboratory Lab Mobile Phlebotomy [facility] [address] [place] [address] [facility] Mobile Home Draw [address] [place] [address] Health Maintenance Due Date Last Done Comments [...] 023, 03/08/2019, 04/09/2014 CKD PHOS USE SMARTSET 54831 12/07/202411/23, 12/26/2022, 06/21/2021 CKD HGB USE SMARTSET 48532 01/17/202501/17, 01/18/2024, 01/04/2024, Additional history exists COLONOSCOPY-EVERY [...] this encounter Medical Devices Implanted Type Area Carrier Washer Device Identifier Shelf Expiration Date Model / Serial / Lot Lens Intraoc 22.5 - [id number] - [id number] Implanted:Qty: 1 on 05/22/2018 by Jasbir Maurer MD at OR [facility] Right: Eye [employer] 11/22/2022 [id number] / [id number] / [id number] Lens Intraoc 21.0 - [id number] - [id number] Implanted:Qty: 1 on 06/05/2018 by Jasbir Maurer MD at OR [facility] Left: Eye [employer]OM[employer] 12/20/2022 [id number] / [id number] / documented as of this encounter Advance [...] Agents on File Name Relationship Healthcare Agent [facility] Communication Ashley Meek Jose Spouse Health Care Power of Attor bellaire Care Teams Assisted Living Home Director Relationship Specialty Start Date End Date Michael Hinton MD [address] [place] [address] PCP - General Family Medicine 08/07/17 documented as of this encounter
--- OUTSIDE RECORDS SUMMARY | 2024-03-01 06:29 | External Medical Summary | Summary of Care ---
Author Name Unknown Organization [facility] Address [address] [facility] [place] [address] Phone [phone] Care Team Providers Care Clerical Clerk Name Role Phone Michael Hinton MD Primary Care Provider [phone] Reason for Visit * Reason Onset Date Comments [facility]: Acute 01/23/2024 Encounter Details Date Type Department Care Team (Late st Contact Info) Description 01/23/2024 Telephone [facility], [facility] [address] [place] [address] [facility], Nurse [address] [place] [address] [facility]: Acute Allergies Active Allergy Reactions Criticality Noted Date Comments Fabiano Inhibitors Cough 06/09/2017 Carbidopa W-Levodopa 03/17/2021 Constipation Nsaids Rash 05/17/2018 Contraindicated per background check coordinator documented as of this encounter (statuses [...] mitral valve regurgitation,Coron daniel artery disease involving [place] coronary artery of [place] heart without angina pectoris,Paroxysmal atrial fibrillation (HCC),Stage [...] Last Assessment & Plan: Followed closely by [facility] hematology. No identified cause of HUNTER. [...] knees 03/21/2018 Coronary artery disease invo lving [place] coronary artery of [place] heart without angina pectoris 03/21/2018 Last Assessment [...] scanned document from 11/13/[address] [facility]. 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 Pain [...] until appointment: as above Will send to [facility] for recommendations Scheduled 24/ 48 hr f/u calls Call back instructions provided to patient. Dixie PRINCE, RN [facility] Intake Triage Coordinator [phone] documented in this encounter Plan of Treatment Upcoming Encounters Date Type Department Care Team (Late st Contact Info) Description 01/23/2024 11:00 AM EDT Scheduled Telephone [facility] [address] [place] [address] Coordinator, [facility] [address] [place] [address] 01/23/2024 11:30 AM EDT [facility] Visit [facility] [address] [place] [address] Peggy De RN [address] [place] [address] 01/24/2024 2:30 PM EDT Telemedicine [facility], [facility] [address] [place], [place] [address] Berny Power PA-C 132 [facility] [place] [address] Meri Mae, Community Health X Ray Physician [address] [place] [address] 01/25/2024 9:30 AM EDT Scheduled Telephone [facility], [facility] [address] [place] [address] Coordinator, [facility] [address] 01/26/2024 9:00 AM EDT Scheduled Telephone [facility], [facility] [address] [place] [address] Coordinator, [facility] 132 [facility] [place] [address] 02/01/2024 9:20 AM EDT Laboratory Lab Mobile Phlebotomy [facility] [address] [place] [address] [facility], [facility] Mobile Home Draw [address] [place] [address] 02/12/2024 5:30 PM EDT Home Visit [facility], [facility] 132 [facility] [place] [address] Peggy De, RN 132 [facility] [place] [address] 02/15/2024 9:20 AM EDT Laboratory Lab Mobile Phlebotomy [facility] [address] [place] [address] [facility], [facility] Mobile Home Draw [address] [place] [address] 02/26/2024 12:30 PM EDT Nurse Only Ancillary [facility] [address] [place] [address] [facility], Nurse Annual [facility] [address] [place] [address] 02/29/2024 9:20 AM EDT Laboratory Lab Mobile Phlebotomy [facility] [address] [place] [address] [facility], [facility] Mobile Home Draw [address] [place] [address] 03/11/2024 3:15 PM EDT Office Visit Urology, [facility] [address] [place] [address] Kalpesh Funes MD [address] [address] 03/14/2024 9:20 AM EDT Laboratory Lab Mobile Phlebotomy [facility] [address] [place] [address] [facility], [facility] Mobile Home Draw [address] [place] [address] 03/22/2024 3:00 PM EDT Office Visit Nephrology, [facility] [address] [place] [address] Nataly Stone PA-C [address] [place] [address] 03/28/2024 8:00 AM EDT Laboratory Lab Mobile Phlebotomy [facility] [address] [place] [address] [facility], [facility] Draw [address] [place] [address] 04/11/2024 8:00 AM EDT Laboratory Lab Mobile Phle[facility] [address] [place] [address] [facility] Mobile [facility] Draw [address] [place] [address] 04/25/2024 8:00 AM EDT Laboratory Lab Mobile Phlebot[facility] [address] [place] [address] [facility] Mobile [facility] Draw [address] [place] [address] 05/09/2024 8:00 AM EDT Laboratory Lab Mobile Phlebot[facility] [address] [place] [address] [facility], [facility] Draw [address] [place] [address] 05/23/2024 8:00 AM EDT Laboratory Lab Mobile Phlebot[facility] [address] [place] [address] [facility] Draw [address] [place] [address] 06/06/2024 8:00 AM EDT Laboratory Lab Mobile Phlebot[facility] [address] [place] [address] [facility] Draw [address] [place] [address] 06/20/2024 8:00 AM EDT Laboratory Lab Mobile Phlebot[facility] [address] [place] [address] [facility], [facility] Mobile Home Draw [address] [place] [address] 07/04/2024 8:00 AM EDT Laboratory Lab Mobile Phlebot[facility] [address] [place] [address] [facility], [facility] Mobile Home Draw [address] [place] [address] 07/18/2024 8:00 AM EDT Laboratory Lab Mobile Phlebotomy [facility] [address] [place] [address] [facility], [facility] Draw [address] [place] [address] 08/01/2024 8:00 AM EDT Laboratory Lab Mobile Phlebotomy [facility] [address] [place] [address] [facility], [facility] Mobile Home Draw [address] [place] [address] 08/15/2024 8:00 AM EDT Laboratory Lab Mobile Phlebotomy [facility] [address] [place] [address] [facility], [facility] Mobile Home Draw [address] [place] [address] 08/29/2024 8:00 AM EST Laboratory Lab Mobile Phlebotomy [facility] [address] [place] [address] [facility], [facility] Mobile Home Draw [address] [place] [address] 09/12/2024 8:00 AM EST Laboratory Lab Mobile Phlebotomy [facility] [address] [place] [address] [facility], [facility] Mobile Home Draw [address] [place] [address] 09/26/2024 8:00 AM EST Laboratory Lab Mobile Phlebotomy [facility] [address] [place] [address] [facility], l Mobile Home Draw [address] [place] [address] Health Maintenance Due Date Last Done Comments Hepatitis C Screening 1963 Diabetic Foot Exam 03/27/2021 03/27/2020, 08/23/2018 COVID-19 Vaccine (2022-24 season) 2023 11/03/2021, 12/19/2020, 12/19/2020, Additional history exists HbA1c 10/12/2023 04/12/2023, 0303/2023, 03/22/2022, Additional history exists Diabetic Eye Exam 11/01/2023 11/01/2022, , 11/01/2022, Additional history exists Depression Screening 11/02/2023 11/02/2022 GFR 11/04/2023 05/04/2023, 03/23, 03/16/2023, Additional history exists Albumin/Creatinine Ratio 12/27/2023 023, 03/08/2019, 04/09/2014 CKD PHOS USE SMARTSET 67780 12/07/202411/23, 12/26/2022, 06/21/2021 CKD HGB USE SMARTSET 47376 01/17/202501/17, 01/18/2024, 01/04/2024, Additional history exists COLONOSCOPY-EVERY [...] this encounter Medical Devices Implanted Type Area Program Clerk Device Identifier Shelf Expiration Date Model / Serial / Lot Lens Intraoc 22.5 - [id number] - [id number] Implanted:Qty: 1 on 05/22/2018 by Jasbir Maurer MD at OR [facility] Right: Eye [employer] 11/22/2022 [id number] / [id number] / [id number] Lens Intraoc 21.0 - [id number] - [id number] Implanted:Qty: 1 on 06/05/2018 by Jasbir Maurer MD at OR [facility] Left: Eye [employer] 12/20/2022 [id number] / [id number] / documented as of this encounter Advance [...] Agents on File Name Relationship Healthcare Agent [facility] p Communication Ashley Jose Spouse Health Care Power of Attor mayela Care Teams Clerical Clerk Relationship Specialty Start Date End Date Michael Hinton MD [address] [place] [address] PCP - General Family Medicine 08/07/17 documented as of this encounter
--- OUTSIDE RECORDS SUMMARY | 2024-03-01 06:29 | External Medical Summary | Summary of Care ---
Author Name Unknown Organization [facility] Address [address] [facility] [address] Phone [phone] Care Team Providers Care Rn Endocrinology Name Role Phone Michael Hinton MD Primary Care Provider [phone] Reason for Visit * Reason Onset Date Comments [facility]: Maintenance 01/23/2024 Encounter Details Date Type Department Care Team (Late st Contact Info) Description 01/23/2024 11:00 AM EDT Scheduled Telephone [facility], [facility] 132 [facility] [place] [address] Coordinator, [facility] [address] [facility] [place] [address] Allergies Active Allergy Reactions Criticality Noted Date Comments Fabiano Inhibitors Cough 06/09/2017 Carbidopa W-Levodopa 03/17/2021 Constipation Nsaids Rash 05/17/2018 Contraindicated per proposal lead writer documented as of this encounter (statuses as [...] mitral valve regurgitation,Coron daniel artery disease involving [place] coronary artery of [place] heart without angina pectoris,Paroxysmal atrial fibrillation (HCC),Stage [...] 03/21/2018 Coronary artery disease invo lving [place] coronary artery of [place] heart without angina pectoris 03/21/2018 Last Assessment [...] from 11/13/[address] [facility] 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y [...] Encounter - Dixie Mera RN - 01/23/2024 8:50 AM EDT See acute TE from today Dixie PRINCE, RN [facility] Intake Triage Coordinator [phone] documented in this encounter Plan of Treatment Upcoming Encounters Date Type Department Care Team (Late st Contact Info) Description 01/24/2024 2:30 PM EDT [facility]icine [facility] [place] [address] Berny Power PA-C 132 [facility] [place] [address] Meri Mae, Community Health Conductor Freight [address] [place] [address] 02/01/2024 9:20 AM EDT Laboratory Lab Mobile Phlebotomy [facility] [address] [place] [address] [facility], [facility] Mobile Home Draw [address] [place] [address] 02/12/2024 5:30 PM EDT [facility] Visit [facility] [place] [address] Peggy De, RN [address] [place] [address] 02/15/2024 9:20 AM EDT Laboratory Lab Mobile Phlebotomy [facility] [address] [place] [address] [facility], [facility] Mobile Home Draw [address] [place] [address] 02/26/2024 12:30 PM EDT Nurse Only Ancillary [facility] [address] [place] [address] [facility], Nurse [facility] Wellness [facility] [address] [place] [address] 02/29/2024 9:20 AM EDT Laboratory Lab Mobile Phlebotomy [facility] [address] [place] [address] [facility], [facility] Mobile Home Draw [address] [place] [address] 03/11/2024 3:15 PM EDT Office Visit Urology, [facility] [address] [place] [address] Kalpesh Funes MD [address] [address] 03/14/2024 9:20 AM EDT Laboratory Lab Mobile Phlebotomy [facility] [address] [place] [address] [facility], [facility] Mobile Home Draw [address] [place] [address] 03/22/2024 3:00 PM EDT Office Visit Nephrology, [facility] [address] [place] [address] Nataly Stone PA-C [address] [place] [address] 03/28/2024 8:00 AM EDT Laboratory Lab Mobile Phlebot[facility] [address] [place] [address] [facility] Mobile Home Draw [address] [place] [address] 04/11/2024 8:00 AM EDT Laboratory Lab Mobile Phlebot[facility] [address] [place] [address] [facility], [facility] Mobile Home Draw [address] [place] [address] 04/25/2024 8:00 AM EDT Laboratory Lab Mobile Phlebot[facility] [address] [place] [address] [facility], [facility] Mobile Home Draw [address] [place] [address] 05/09/2024 8:00 AM EDT Laboratory Lab Mobile Phlebot[facility] [address] [place] [address] [facility], [facility] Mobile Home Draw [address] [place] [address] 05/23/2024 8:00 AM EDT Laboratory Lab Mobile Phlebot[facility] [address] [place] [address] [facility], [facility] Mobile Home Draw [address] [place] [address] 06/06/2024 8:00 AM EDT Laboratory Lab Mobile Phlebotomy [facility] [address] [place] [address] [facility], [facility] Mobile Home Draw [address] [place] [address] 06/20/2024 8:00 AM EDT Laboratory Lab Mobile Phlebot[facility] [address] [place] [address] [facility], [facility] Mobile Home Draw [address] [place] [address] 07/04/2024 8:00 AM EDT Laboratory Lab Mobile Phlebot[facility] [address] [place] [address] [facility], [facility] Mobile Home Draw [address] [place] [address] 07/18/2024 8:00 AM EDT Laboratory Lab Mobile Phlebot[facility] [address] [place] [address] [facility], [facility] Mobile Home Draw [address] [place] [address] 08/01/2024 8:00 AM EDT Laboratory Lab Mobile Phlebotomy [facility] [address] [place] [address] [facility], [facility] Mobile Home Draw [address] [place] [address] 08/15/2024 8:00 AM EDT Laboratory Lab Mobile Phlebotomy [facility] [address] [place] [address] [facility], [facility] Mobile Home Draw [address] [place] [address] 08/29/2024 8:00 AM EST Laboratory Lab Mobile Phlebotomy [facility] [address] [place] [address] [facility], [facility] Mobile Home Draw [address] [place] [address] 09/12/2024 8:00 AM EST Laboratory Lab Mobile Phlebot[facility] [address] [place] [address] [facility], [facility] Mobile Home Draw [address] [place] [address] 09/26/2024 8:00 AM EST Laboratory Lab Mobile Phlebotomy [facility] [address] [place] [address] [facility], [facility] Mobile Home Draw [address] [place] [address] Health Maintenance Due Date Last Done Comments [...] 023, 03/08/2019, 04/09/2014 CKD PHOS USE SMARTSET 26570 12/07/202411/23, 12/26/2022, 06/21/2021 CKD HGB USE SMARTSET 92341 01/17/202501/17, 01/18/2024, 01/04/2024, Additional history exists COLONOSCOPY-EVERY [...] this encounter Medical Devices Implanted Type Area Signaling Project Engineer Device Identifier Shelf Expiration Date Model / Serial / Lot Lens Intraoc 22.5 - [id number] - [id number] Implanted:Qty: 1 on 05/22/2018 by Jasbir Maurer MD at OR [facility] Right: Eye [employer] 11/22/2022 [id number] / [id number] / [id number] Lens Intraoc 21.0 - [id number] - [id number] Implanted:Qty: 1 on 06/05/2018 by Jasbir Maurer MD at OR [facility] Left: Eye [employer]OM[employer] 12/20/2022 [id number] / [id number] / documented as of this encounter Advance [...] Jose Spouse Health Care Power of Attor [place] Care Teams Rn Endocrinology Relationship Specialty Start Date End Date Michael Hinton MD [address] [place] [address] PCP - General Family Medicine 08/07/17 documented as of this encounter
--- OUTSIDE RECORDS SUMMARY | 2024-03-01 06:30 | External Medical Summary | Summary of Care ---
Author Name Unknown Organization [facility] Address [address] [facility] [address] Phone [phone] Care Team Providers Care Forming Roll Operator Heavy Duty Name Role Phone Michael Hinton MD Primary Care Provider [phone] Reason for Visit * Reason Onset Date Comments [facility]: Maintenance 01/19/2024 Encounter Details Date Type Department Care Team (Late st Contact Info) Description 01/19/2024 9:45 AM EDT Scheduled Telephone [facility], [facility] [address] [place] [address] Coordinator, [facility] [address] [facility] [place] [address] Allergies Active Allergy Reactions Criticality Noted Date Comments Fabiano Inhibitors Cough 06/09/2017 Carbidopa W-Levodopa 03/17/2021 Constipation Nsaids Rash 05/17/2018 Contraindicated per inlayer documented as of this encounter (statuses as of 01/19/2024) Medications Medication Sig Dispensed Refills Start Date [...] mitral valve regurgitation,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 180 Tablet 3 01/15/2024 Active documented as of this encounter (statuses as of 01/19/2024) Active Problems Problem Noted Date Diagnosed Date [...] knees 03/21/2018 Coronary artery disease invo lving [place] coronary artery of [place] heart without angina pectoris 03/21/2018 Last Assessment [...] as of this encounter (statuses as of 01/19/2024) Resolved Problems Problem Noted Date Diagnosed Date [...] scanned document from 11/13/[address] bains, [facility]. 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y [...] as of this encounter (statuses as of 01/19/2024) Immunizations Name Administration Dates Next Due COVID-19 [...] Telephone Encounter - Meri Hernadez RN - 01/19/2024 12:05 PM EDT [facility] Telephonic Nurse Follow-Up Call [facility] Subprogram: Primary Care at Home Follow Up Call Type: 48 hour follow up Acute issue requiring follow-up call: Other: cellulitis and edema of BLEs. Objective: 01/15/2024 12:06 PM 12/04/2023 12:09 PM 11/30/2023 2:51 PM 11/30/2023 2:47 PM 11/30/2023 2:45 PM VITALS ACROSS ENCOUNTERS BP 104/62 148/68 126/56 114/48 71/52 Pulse 65 82 62 72 Weight 76.9 kg 75.3 kg 75.4 kg BMI 28.22 kg/m2 27.62 kg/m2 27.66 kg/m2 Medications: Keflex d/c'd 01/15/24. Started Doxycycline 100mg po bid x 7 days Dose adjustment(s) made: Torsemide increased to 40 mg daily on 01/15/24. Call to see how legs are looking since changed to Doxycyline and Torsemide was increased. [facility]. [facility] requesting return call to [facility] with update. Scheduled follow up call for tomorrow. Disposition: Follow up call scheduled for tomorrow with CLOTH SHEARING SUPERVISOR Trust Administrative Assistant Future Visits Scheduled: Future Appointments-next 60 days Date/Time Provider Specialty Dept Phone 01/20/2024 9:30 AM Region, Nurse Snehal Nobles [facility] [phone] 01/22/2024 10:00 AM Coordinator, Snehal Tafoya [facility] [phone] 01/24/2024 2:30 PM Meri Mae, Community [facility] Hydraulic Corrugating Machine Operator; Berny Power PA-C [facility] [phone] 02/01/2024 9:20 AM [facility], [facility] Mobile [facility] Draw Laboratory Processing [phone] 02/12/2024 5:30 PM Peggy De, RN [facility] [phone] 02/15/2024 9:20 AM [facility], [facility] Draw Laboratory Processing [phone] 02/26/2024 12:30 PM Nurse eJronimo Annual Wellness [facility] [phone] 02/29/2024 9:20 AM [facility], [facility] Draw Laboratory Processing [phone] 03/11/2024 3:15 PM Kalpesh Funes MD Urology [phone] 03/14/2024 9:20 AM [facility], [facility] Draw Laboratory Processing [phone] 03/22/2024 3:00 PM (Arrive by 2:45 PM) Nataly Stone PA-C Nephrology [phone] 03/28/2024 8:00 AM [facility], [facility] Draw Laboratory Processing [phone] 04/11/2024 8:00 AM [facility], [facility] Draw Laboratory Processing [phone] 04/25/2024 8:00 AM [facility], [facility] Draw Laboratory Processing [phone] 05/09/2024 8:00 AM [facility], [facility] Draw Laboratory Processing [phone] 05/23/2024 8:00 AM [facility], [facility] Draw Laboratory Processing [phone] 06/06/2024 8:00 AM [facility], [facility] Draw Laboratory Processing [phone] 06/20/2024 8:00 AM [facility], [facility] Draw Laboratory Processing [phone] 07/04/2024 8:00 AM [facility], [facility] Draw Laboratory Processing [phone] 07/18/2024 8:00 AM [facility], [facility] Draw Laboratory Processing [phone] 08/01/2024 8:00 AM [facility], [facility] Draw Laboratory Processing [phone] 08/15/2024 8:00 AM [facility], [facility] Draw Laboratory Processing [phone] 08/29/2024 8:00 AM [facility], [facility] Draw Laboratory Processing [phone] 09/12/2024 8:00 AM [facility], [facility] Draw Laboratory Processing [phone] 09/26/2024 8:00 AM [facility], [facility] Draw Laboratory Processing [phone] Meri Hernadez, RN documented in this encounter Plan of Treatment Upcoming Encounters Date Type Department Care Team (Late st Contact Info) Description 01/20/2024 9:30 AM EDT Scheduled Telephone [facility], [address] [place] [address] Region, Nurse [address] [place] [address] 01/22/2024 10:00 AM EDT Scheduled Telephone [facility], [facility] [address] [place] [address] Coordinator, [address] [place] [address] 01/24/2024 2:30 PM EDT Telemedicine [facility], [facility] [address] [place] [address] Berny Power PA-C [address] [place] [address] Meri Mae, [facility] Hydraulic Corrugating Machine Operator [address] [place] [address] 02/01/2024 9:20 AM EDT Laboratory Lab Mobile Phlebotomy [facility] [address] [place] [address] [facility], [facility] Mobile Home Draw [address] [place] [address] 02/12/2024 5:30 PM EDT Home Visit [facility] [address] [place] [address] Peggy De RN [address] [place] [address] 02/15/2024 9:20 AM EDT Laboratory Lab Mobile Phlebotomy [facility] [address] [place] [address] [facility], [facility] Mobile Home Draw [address] [place] [address] 02/26/2024 12:30 PM EDT Nurse Only Ancillary [facility] [address] [place] [address] [facility], Nurse Annual Wellness [facility] [address] [place] [address] 02/29/2024 9:20 AM EDT Laboratory Lab Mobile Phlebotomy [facility] [address] [place] [address] [facility], [facility] Mobile Home Draw [address] [place] [address] 03/11/2024 3:15 PM EDT Office Visit Urology, [facility] [address] [place] [address] Kalpesh Funes MD [address] [address] [place] [address] 03/14/2024 9:20 AM EDT Laboratory Lab Mobile Phlebotomy [facility] [address] [place] [address] Gmc, [facility]ml Mobile Home Draw [address] [place] [address] 03/22/2024 3:00 PM EDT Office Visit Nephrology, [facility] [address] [facility] [place] [address] ZeNataly bailey PA-C [address] [facility] [place] [address] 03/28/2024 8:00 AM EDT Laboratory Lab Mobile Phlebotomy [facility] [address] [place] [address] [facility], [facility] Mobile Home Draw [address] [place] [address] 04/11/2024 8:00 AM EDT Laboratory Lab Mobile Phlebotomy [facility] [address] [place] [address] Gm, Gml Mobile Home Draw [address] 04/25/2024 8:00 AM EDT Laboratory Lab Mobile Phlebotomy [facility] [address], [place] [phone] Gmc, Gml Mobile Home Draw [address] [place] [address] 05/09/2024 8:00 AM EDT Laboratory Lab Mobile Phlebotomy C [address] [place] [address] G[facility], [facility] Mobile Home Draw [address] 05/23/2024 8:00 AM EDT Laboratory Lab Mobile Phlebotomy [facility] [address] [place] [address] Gmc, Gml Mobile Home Draw [address] [place] [address] 06/06/2024 8:00 AM EDT Laboratory Lab Mobile Phlebotomy [facility] [address] [place] [address] Gmc, [facility] Mobile Home Draw [address] [place] [address] 06/20/2024 8:00 AM EDT Laboratory Lab Mobile Phlebotomy [facility] [address] [place] [address] Gmc, [facility] Mobile Home Draw [address] [place] [address] 07/04/2024 8:00 AM EDT Laboratory Lab Mobile Phlebotomy [facility] [address] [place] [address] Gmc, Gml Mobile Home Draw [address] [place] [address] 07/18/2024 8:00 AM EDT Laboratory Lab Mobile Phlebotomy [facility] [address] [place] [address] Gmc, Gml Mobile Home Draw [address] [place] [address] 08/01/2024 8:00 AM EDT Laboratory Lab Mobile Phlebotomy [facility] [address] [place] [address] Gmc, Gml Mobile Home Draw [address] [place] [address] 08/15/2024 8:00 AM EDT Laboratory Lab Mobile Phlebotomy [facility] [address] [place] [address] Gmc, Gml Mobile Home Draw [address] [place] [address] 08/29/2024 8:00 AM EST Laboratory Lab Mobile Phlebotomy [facility] [address] [place] [address] Gmc, Gml Mobile Home Draw [address] [place] [address] 09/12/2024 8:00 AM EST Laboratory Lab Mobile Phlebotomy [facility] [address] [place] [address] Gmc, Gml Mobile Home Draw [address] [place] [address] 09/26/2024 8:00 AM EST Laboratory Lab Mobile Phlebotomy [facility] [address] [place] [address] Gm, Gm Mobile Home Draw [address] [place] [address] Health Maintenance Due Date Last Done Comments [...] 023, 03/08/2019, 04/09/2014 CKD PHOS USE SMARTSET 86048 12/07/202411/23, 12/26/2022, 06/21/2021 CKD HGB USE SMARTSET 68517 01/17/202501/17, 01/18/2024, 01/04/2024, Additional history exists COLONOSCOPY-EVERY [...] this encounter Medical Devices Implanted Type Area Insurance Follow Up Specialist Device Identifier Shelf Expiration Date Model / Serial / Lot Lens Intraoc 22.5 - [id number] - [id number] Implanted:Qty: 1 on 05/22/2018 by Jasbir Maurer MD at OR [facility] Right: Eye [employer] 11/22/2022 [id number] / [id number] Lens Intraoc 21.0 - [id number] - [id number] Implanted:Qty: 1 on 06/05/2018 by Jasbir Maurer MD at OR [facility] Left: Eye [employer]OM[employer] 12/20/2022 [id number] / [id number] / documented as of this encounter Advance [...] Care Power of Attor mayela Care Teams Forming Roll Operator Heavy Duty Relationship Specialty Start Date End Date Michael Hinton MD [address] [place] [address] PCP - General Family Medicine 08/07/17 documented as of this encounter
--- OUTSIDE RECORDS SUMMARY | 2024-03-01 06:30 | External Medical Summary | Summary of Care ---
Author Name Unknown Organization [facility] Address [address] [place] [facility] [place] [address] Phone [phone] Care Team Providers Care Stretch Box Tender Name Role Phone Michael Hinton MD Primary Care Provider [phone] Reason for Visit * Reason Onset Date Comments [facility]: Maintenance 01/20/2024 Encounter Details Date Type Department Care Team (Late st Contact Info) Description 01/20/2024 9:30 AM EDT Scheduled Telephone [facility], [facility] [address] [place] [address] [facility], Nurse [facility] [address] [place] [address] Allergies Active Allergy Reactions Criticality Noted Date Comments Fabiano Inhibitors Cough 06/09/2017 Carbidopa W-Levodopa 03/17/2021 Constipation Nsaids Rash 05/17/2018 Contraindicated per drying machine operator package yarns documented as of this encounter (statuses as of 01/20/2024) Medications Medication Sig Dispensed Refills Start Date [...] mitral valve regurgitation,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 180 Tablet 3 01/15/2024 Active documented as of this encounter (statuses as of 01/20/2024) Active Problems Problem Noted Date Diagnosed Date [...] knees 03/21/2018 Coronary artery disease invo lving [place] coronary artery of [place] heart without angina pectoris 03/21/2018 Last Assessment [...] as of this encounter (statuses as of 01/20/2024) Resolved Problems Problem Noted Date Diagnosed Date [...] document from 11/13/[address] bains, [facility]. 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y [...] as of this encounter (statuses as of 01/20/2024) Immunizations Name Administration Dates Next Due COVID-19 [...] Telephone Encounter - Vicky Garcia RN - 01/20/2024 8:53 AM EDT [facility] Telephonic Nurse Follow-Up Call [facility] Subprogram: Primary Care at Home Follow Up Call Type: Weekend Call Acute issue requiring follow-up call: Other: Cellulitis of B/L LE Objective: 01/15/2024 12:06 PM 12/04/2023 12:09 PM [...] DME needs identified Medications: New medication(s) added: Keflex changed to Doxy 100 mg BID x 7 days on 01/14, Torsemide was increased Subjective: Condition Status: [facility] Current Concerns: [facility], message left for callback to [facility] with update on cellulitis, and if swelling has improved with increased Torsemide. [phone]# provided, he can give information to triage nurse that answers the phone Disposition: Issue resolved. All appropriate follow up scheduled. Future Visits Scheduled: Future Appointments-next 60 days Date/Time Provider Specialty Dept Phone 01/20/2024 9:30 AM Region, Nurse Snehal Nobles [facility] [phone] 01/22/2024 10:00 AM Coordinator, Snehal Tafoya [facility] [phone] 01/24/2024 2:30 PM Meri Mae, Community [facility] Weights And Measures Sealer; Berny Power PA-C [facility] [phone] 02/01/2024 9:20 AM [facility], [facility] Mobile Home Draw Laboratory Processing [phone] 02/12/2024 5:30 PM Peggy De RN [facility] [phone] 02/15/2024 9:20 AM [facility], [facility] Mobile Home Draw Laboratory Processing [phone] 02/26/2024 12:30 PM Nurse Jeronimo [facility] Niru Ancillary [phone] 02/29/2024 9:20 AM [facility], [facility] Mobile Home Draw Laboratory Processing [phone] 03/11/2024 3:15 PM Kalpesh Funes MD Urology [phone] 03/14/2024 9:20 AM [facility], [facility] Mobile Home Draw Laboratory Processing [phone] 03/22/2024 3:00 PM (Arrive by 2:45 PM) Nataly Stone PA-C Nephrology [phone] 03/28/2024 8:00 AM [facility], [facility] Mobile Home Draw Laboratory Processing [phone] 04/11/2024 8:00 AM [facility], [facility] Mobile Home Draw Laboratory Processing [phone] 04/25/2024 8:00 AM [facility], [facility] Mobile Home Draw Laboratory Processing [phone] 05/09/2024 8:00 AM [facility], [facility] Mobile Home Draw Laboratory Processing [phone] 05/23/2024 8:00 AM [facility], [facility] Mobile Home Draw Laboratory Processing [phone] 06/06/2024 8:00 AM [facility], [facility] Mobile Home Draw Laboratory Processing [phone] 06/20/2024 8:00 AM [facility], [facility] Mobile Home Draw Laboratory Processing [phone] 07/04/2024 8:00 AM [facility], [facility] Mobile Home Draw Laboratory Processing [phone] 07/18/2024 8:00 AM [facility], [facility] Mobile Home Draw Laboratory Processing [phone] 08/01/2024 8:00 AM G[facility], [facility] Mobile Home Draw Laboratory Processing [phone] 08/15/2024 8:00 AM [facility], [facility] Mobile Home Draw Laboratory Processing [phone] 08/29/2024 8:00 AM [facility], [facility] Mobile Home Draw Laboratory Processing [phone] 09/12/2024 8:00 AM [facility], [facility] Mobile Home Draw Laboratory Processing [phone] 09/26/2024 8:00 AM [facility], [facility] Mobile Home Draw Laboratory Processing [phone] Vicky Garcia, RN documented in this encounter Plan of Treatment Upcoming Encounters Date Type Department Care Team (Late st Contact Info) Description 01/22/2024 10:00 AM EDT Scheduled Telephone [facility], [facility] [address] [place] [address] Coordinator, [facility] [address] [place] [address] 01/24/2024 2:30 PM EDT Telemedicine [facility], [facility] [address] [place] [address] Berny Power PA-C [address] [place] [address] Meri Mae, [facility] Weights And Measures Sealer [address] [place] [address] 02/01/2024 9:20 AM EDT Laboratory Lab Mobile Phlebotomy [facility] [address] [place] [address] [facility], Gml Mobile Home Draw [address] [place] [address] 02/12/2024 5:30 PM EDT Home Visit ising at [facility] [address] [place] [address] Peggy De RN [address] [place] [address] 02/15/2024 9:20 AM EDT Laboratory Lab Mobile Phlebotomy [facility] [address] [place] [address] [facility], [facility] Mobile Home Draw [address] [place] [address] 02/26/2024 12:30 PM EDT Nurse Only Ancillary [facility] [address] [place] [address] [facility], Nurse Annual Wellness [facility] [address] [place] [address] 02/29/2024 9:20 AM EDT Laboratory Lab Mobile Phlebotomy [facility] [address] [place] [address] [facility], [facility] Mobile Home Draw [address] [place] [address] 03/11/2024 3:15 PM EDT Office Visit Urology, [facility] [address] [place] [address] Kalpesh Funes MD [address] [address] [place] [address] 03/14/2024 9:20 AM EDT Laboratory Lab Mobile Phlebotomy [facility] [address] [place] [address] [facility], [facility] Mobile Home Draw [address] [place] [address] 03/22/2024 3:00 PM EDT Office Visit Nephrology, Melissa La [address] [facility] [place] [address] ZedeangeloitisNataly PA-C [address] [facility] [place], [place] [address] 03/28/2024 8:00 AM EDT Laboratory Lab Mobile Phlebotomy [facility] [address] [place] [address] [facility], Gml Mobile Home Draw [address] [place] [address] 04/11/2024 8:00 AM EDT Laboratory Lab Mobile Phlebotomy [facility] [address] [place] [address] [facility]mc, Gml Mobile Home Draw [address] [place] [address] 04/25/2024 8:00 AM EDT Laboratory Lab Mobile Phlebotomy [facility] [address] [place] [address] Gmc, Gml Mobile Home Draw [address] [place] [address] 05/09/2024 8:00 AM EDT Laboratory Lab Mobile Phlebotomy [facility] [address] [place] [address] Gmc, Gml Mobile Home Draw [address] [place] [address] 05/23/2024 8:00 AM EDT Laboratory Lab Mobile Phlebotomy [facility] [address] [place] [address] [facility], Gml Mobile Home Draw [address] [place] [address] 06/06/2024 8:00 AM EDT Laboratory Lab Mobile Phlebotomy [facility] [address] [place] [address] [facility], Gml Mobile Home Draw [address] [place] [address] 06/20/2024 8:00 AM EDT Laboratory Lab Mobile Phlebotomy [facility] [address] [place] [address] [facility], Gml Mobile Home Draw [address] [place] [address] 07/04/2024 8:00 AM EDT Laboratory Lab Mobile Phlebotomy [facility] [address] [place] [address] [facility], Gml Mobile Home Draw [address] [place] [address] 07/18/2024 8:00 AM EDT Laboratory Lab Mobile Phlebotomy [facility] [address] [place] [address] Gmc, Gml Mobile Home Draw [address] [place] [address] 08/01/2024 8:00 AM EDT Laboratory Lab Mobile Phlebotomy [facility] [address] [place] [address] Gmc, Gml Mobile Home Draw [address] [place] [address] 08/15/2024 8:00 AM EDT Laboratory Lab Mobile Phlebotomy [facility] [address] [place] [address] Gmc, Gml Mobile Home Draw [address] [place] [address] 08/29/2024 8:00 AM EST Laboratory Lab Mobile Phlebotomy [facility] [address] [place] [address] Gmc, Gml Mobile Home Draw [address] [place] [address] 09/12/2024 8:00 AM EST Laboratory Lab Mobile Phlebotomy [facility] [address] [place] [address] [facility], [facility] Mobile Home Draw [address] [place] [address] 09/26/2024 8:00 AM EST Laboratory Lab Mobile Phlebotomy [facility] [address] [place] [address] [facility], [facility] Mobile Home Draw [address] [place] [address] Health Maintenance Due Date Last Done Comments [...] 023, 03/08/2019, 04/09/2014 CKD PHOS USE SMARTSET 18479 12/07/202411/23, 12/26/2022, 06/21/2021 CKD HGB USE SMARTSET 44973 01/17/202501/17, 01/18/2024, 01/04/2024, Additional history exists COLONOSCOPY-EVERY [...] this encounter Medical Devices Implanted Type Area Tenter Feeder Device Identifier Shelf Expiration Date Model / Serial / Lot Lens Intraoc 22.5 - [id number] - [id number] Implanted:Qty: 1 on 05/22/2018 by Jasbir Maurer MD at OR [facility] Right: Eye [employer] 11/22/2022 [id number] / [id number] / [id number] Lens Intraoc 21.0 - [id number] - [id number] Implanted:Qty: 1 on 06/05/2018 by Jasbir Maurer MD at OR [facility] Left: Eye [employer] 12/20/2022 [id number] / [id number] / documented as of this encounter Advance [...] Care Power of Attor mayela Care Teams Stretch Box Tender Relationship Specialty Start Date End Date Michael Hinton MD [address] [place] [address] PCP - General Family Medicine 08/07/17 documented as of this encounter
--- OUTSIDE RECORDS SUMMARY | 2024-03-01 06:30 | External Medical Summary | Summary of Care ---
Author Name Unknown Organization [facility] Address [address] [place] [facility] [place] [place] [address] Phone [phone] Care Team Providers Care Construction Analyst Name Role Phone Michael Hinton MD Primary Care Provider [phone] Reason for Visit * Reason Onset Date Comments [facility]: Maintenance 01/20/2024 Encounter Details Date Type Department Care Team (Late st Contact Info) Description 01/20/2024 9:30 AM EDT Scheduled Telephone [facility], [facility] [address] [place] [address] [facility], Nurse [facility] [address] [place] [address] Allergies Active Allergy Reactions Criticality Noted Date Comments Fabiano Inhibitors Cough 06/09/2017 Carbidopa W-Levodopa 03/17/2021 Constipation Nsaids Rash 05/17/2018 Contraindicated per csr retail documented as of this encounter (statuses as [...] mitral valve regurgitation,Coron daniel artery disease involving [place] coronary artery of [place] heart without angina pectoris,Paroxysmal atrial fibrillation (HCC),Stage [...] knees 03/21/2018 Coronary artery disease invo lving [place] coronary artery of [place] heart without angina pectoris 03/21/2018 Last Assessment [...] Encounter - Vicky Garcia RN - 01/20/2024 9:53 AM EDT Images from the original note were not included. Call back from spouse to triage Ashley Garcia RN, BSN [facility] Intake Triage Coordinator [phone] * Telephone Encounter - Vicky Garcia RN - 01/20/2024 8:53 AM EDT [facility] Telephonic Nurse Follow-Up Call [facility] Subprogram: Primary Care at Home Follow [...] 01/14, Torsemide was increased Subjective: Condition Status: [facility] Current Concerns: [facility], message left for callback to [facility] with update on cellulitis, and if swelling has improved with increased Torsemide. [phone]# provided, he can give information to triage nurse that answers the phone Disposition: Issue resolved. All appropriate follow up scheduled. Future Visits Scheduled: Future Appointments-next 60 days Date/Time Provider Specialty Dept Phone 01/20/2024 9:30 AM Region, Nurse [facility] Giuliano Pagan at Home [phone] 01/22/2024 10:00 AM Coordinator, [facility] [phone] 01/24/2024 2:30 PM Meri Mae, Community Health Audio Video Tech; Berny Power PA-C [facility] [phone] 02/01/2024 9:20 AM [facility], [facility] Draw Laboratory Processing [phone] 02/12/2024 5:30 PM Peggy De RN [facility] [phone] 02/15/2024 9:20 AM [facility] Laboratory Processing [phone] 02/26/2024 12:30 PM Jeronimo Nurse Annual Wellness N[facility] Ancillary [phone] 02/29/2024 9:20 AM [facility] Laboratory Processing [phone] 03/11/2024 3:15 PM Kalpesh Funes MD Urology [phone] 03/14/2024 9:20 AM [facility] Laboratory Processing [phone] 03/22/2024 3:00 PM (Arrive by 2:45 PM) Ntaaly Stone PA-C Nephrology [phone] 03/28/2024 8:00 AM [facility] Laboratory Processing [phone] 04/11/2024 8:00 AM [facility] Laboratory Processing [phone] 04/25/2024 8:00 AM [facility] Laboratory Processing [phone] 05/09/2024 8:00 AM [facility], [facility] Laboratory Processing [phone] 05/23/2024 8:00 AM [facility], [facility] Laboratory Processing [phone] 06/06/2024 8:00 AM [facility] Laboratory Processing [phone] 06/20/2024 8:00 AM [facility], [facility] Laboratory Processing [phone] 07/04/2024 8:00 AM [facility], [facility] Draw Laboratory Processing [phone] 07/18/2024 8:00 AM [facility], [facility] Draw Laboratory Processing [phone] 08/01/2024 8:00 AM [facility] Draw Laboratory Processing [phone] 08/15/2024 8:00 AM [facility] Draw Laboratory Processing [phone] 08/29/2024 8:00 AM [facility] Draw Laboratory Processing [phone] 09/12/2024 8:00 AM [facility] Laboratory Processing [phone] 09/26/2024 8:00 AM [facility] Laboratory Processing [phone] Vicky Garcia, RN documented in this encounter Plan of Treatment Upcoming Encounters Date Type Department Care Team (Late st Contact Info) Description 01/22/2024 10:00 AM EDT Scheduled Telephone [facility], [facility] [address] [address] Coordinator, [facility] [address] [address] 01/24/2024 2:30 PM EDT Telemedicine [facility], [facility] [address] [address] Berny Power PA-C [address] [place] [address] Meri Mae, Community Health Audio Video Tech [address] [place] [address] 02/01/2024 9:20 AM EDT Laboratory Lab Mobile Phlebotomy [facility] [address] [place] [address] [facility], [facility] Mobile Home Draw [address] [place] [address] 02/12/2024 5:30 PM EDT [facility] Visit [facility] [address] [place] [address] Peggy De RN [address] [place] [address] 02/15/2024 9:20 AM EDT Laboratory Lab Mobile Phlebotomy [facility] [address] [place] [address] [facility], [facility] Mobile Home Draw [address] [place] [address] 02/26/2024 12:30 PM EDT Nurse Only Ancillary [facility] [address] [place] [address] [facility], Nurse Annual Wellness [facility] [address] [place] [address] 02/29/2024 9:20 AM EDT Laboratory Lab Mobile Phlebotomy [facility] [address] [place] [address] [facility], [facility] Mobile Home Draw [address] [place] [address] 03/11/2024 3:15 PM EDT Office Visit Urology, [facility] [address] [place] [address] Kalpesh Funes MD 27 [facility] [address] [place] [address] 03/14/2024 9:20 AM EDT Laboratory Lab Mobile Phlebotomy [facility] [address] [place] [address] Gmc, Gml Mobile Home Draw [address] [place] [address] 03/22/2024 3:00 PM EDT Office Visit Nephrology, [facility] [address] [facility] [address] ZeNataly bailey PA-C [address] [place] [address] 03/28/2024 8:00 AM EDT Laboratory Lab Mobile Phlebotomy [facility] [address] [place] [address] Gm, Gml Mobile Home Draw [address] [place] [address] 04/11/2024 8:00 AM EDT Laboratory Lab Mobile Phlebotomy [facility] [address] [place] [address] Gmc, Gml Mobile Home Draw [address] [place] [address] 04/25/2024 8:00 AM EDT Laboratory Lab Mobile Phlebotomy [facility] [address] [place] [address] Gmc, Gml Mobile Home Draw [address] [place] [address] 05/09/2024 8:00 AM EDT Laboratory Lab Mobile Phlebotomy C [address] [place] [address] Gmc, Gml Mobile Home Draw [address] [place] [address] 05/23/2024 8:00 AM EDT Laboratory Lab Mobile Phlebotomy [facility] [address] [place] [address] Gmc, Gml Mobile Home Draw [address] [place] [address] 06/06/2024 8:00 AM EDT Laboratory Lab Mobile Phlebotomy [facility] [address] [place] [address] Gmc, Gml Mobile Home Draw [address] [place] [address] 06/20/2024 8:00 AM EDT Laboratory Lab Mobile Phlebotomy [facility] [address] [place] [address] Gmc, Gml Mobile Home Draw [address] [place] [address] 07/04/2024 8:00 AM EDT Laboratory Lab Mobile Phlebotomy [facility] [address] [place] [address] Gmc, Gml Mobile Home Draw [address] [place] [address] 07/18/2024 8:00 AM EDT Laboratory Lab Mobile Phlebotomy [facility] [address] [place] [address] Gmc, G[facility] Mobile Home Draw [address] [place] [address] 08/01/2024 8:00 AM EDT Laboratory Lab Mobile Phlebotomy [facility] [address] [place] [address] Gmc, [facility] Mobile Home Draw [address] [place] [address] 08/15/2024 8:00 AM EDT Laboratory Lab Mobile Phlebotomy [facility] [address] [place] [address] Gmc, Gml Mobile Home Draw [address] [place] [address] 08/29/2024 8:00 AM EST Laboratory Lab Mobile Phlebotomy [facility] [address] [place] [address] Gmc, Gml Mobile Home Draw [address] [place] [address] 09/12/2024 8:00 AM EST Laboratory Lab Mobile Phlebotomy [facility] [address] [place] [address] Gmc, Gml Mobile Home Draw [address] [place] [address] 09/26/2024 8:00 AM EST Laboratory Lab Mobile Phlebotomy [facility] [address] [place] [address] Gm, Gml Mobile Home Draw [address] [place] [address] Health Maintenance Due Date Last Done Comments [...] 023, 03/08/2019, 04/09/2014 CKD PHOS USE SMARTSET 97681 12/07/202411/23, 12/26/2022, 06/21/2021 CKD HGB USE SMARTSET 40076 01/17/2025 03/28 /2024, 01/18/2024, 01/04/2024, Additional history exists COLONOSCOPY-EVERY 3 [...] this encounter Medical Devices Implanted Type Area Linux Solaris Administrator Device Identifier Shelf Expiration Date Model / Serial / Lot Lens Intraoc 22.5 - [id number] - [id number] Implanted:Qty: 1 on 05/22/2018 by Jasbir Maurer MD at OR [facility] Right: Eye [employer] 11/22/2022 [id number] / [id number] / [id number] Lens Intraoc 21.0 - [id number] - [id number] Implanted:Qty: 1 on 06/05/2018 by Jasbir Maurer MD at OR [facility] Left: Eye [employer]CH [employer]OMB 12/20/2022 [id number] / [id number] / documented as of this encounter Advance [...] on File Name Relationship [facility] Ashley Jose Spouse Health Care Power of Attor mayela Care Teams Construction Analyst Relationship Specialty Start Date End Date Michael Hinton MD [address] [address] PCP - General Family Medicine 08/07/17 documented as of this encounter
--- OUTSIDE RECORDS SUMMARY | 2024-03-01 06:30 | External Medical Summary | Summary of Care ---
Author Name Unknown Organization [facility] Address [address] [facility] [place] [address] Phone [phone] Care Team Providers Care Lab Coordinator Name Role Phone Michael Hinton MD Primary Care Provider [phone] Reason for Visit * Reason Onset Date Comments [facility]: Maintenance 01/18/2024 Encounter Details Date Type Department Care Team (Late st Contact Info) Description 01/18/2024 11:00 AM EDT Scheduled Telephone [facility], [facility] [address] [facility] [place] [address] Coordinator, [facility] [address] [facility] [place] [address] Allergies Active Allergy Reactions Criticality Noted Date Comments Fabiano Inhibitors Cough 06/09/2017 Carbidopa W-Levodopa 03/17/2021 Constipation Nsaids Rash 05/17/2018 Contraindicated per heel cutter documented as of this encounter (statuses as of 01/18/2024) Medications Medication Sig Dispensed Refills Start Date [...] mitral valve regurgitation,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 180 Tablet 3 01/15/2024 Active documented as of this encounter (statuses as of 01/18/2024) Active Problems Problem Noted Date Diagnosed Date [...] Assessment & Plan: Followed closely by [facility] hematology. No identified cause of HUNTER. [...] knees 03/21/2018 Coronary artery disease invo lving [place] coronary artery of [place] heart without angina pectoris 03/21/2018 Last [...] as of this encounter (statuses as of 01/18/2024) Resolved Problems Problem Noted Date Diagnosed Date [...] scanned document from 11/13/[address] bains, [place]. 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y [...] as of this encounter (statuses as of 01/18/2024) Immunizations Name Administration Dates Next Due COVID-19 [...] Telephone Encounter - Esperanza Plummer RN - 01/18/2024 4:30 PM EDT Phone call from spouse wanting to see if his labs were completed, aware that the CBC was done, results given, very appreciative. NIKI Bower Sausage Linker [facility] * Telephone Encounter - Meri Hernadez RN - 01/18/2024 12:55 PM EDT Images from the original note were not included. [facility] Telephonic Nurse Follow-Up Call [facility] Subprogram: Primary Care at Home Follow Up Call Type: 48 hour follow up Acute issue requiring follow-up call: Other: follow up on BLE cellulitis, increased edema. Objective: 01/15/2024 12:06 PM 12/04/2023 12:09 PM 11/30/2023 2:51 PM 11/30/2023 2:47 PM 11/30/2023 2:45 PM VITALS ACROSS ENCOUNTERS BP 104/62 148/68 126/56 114/48 71/52 Pulse 65 82 62 72 Weight 76.9 kg 75.3 kg 75.4 kg BMI 28.22 kg/m2 27.62 kg/m2 27.66 kg/m2 Remote Patient Monitoring: [facility] Scale: wt 170.0 lbs. Oxygen Needs: NO CHANGE from baseline supplemental oxygen needs DME Needs: NO DME needs identified Medications: Keflex d/c'd 01/15/24. Started Doxycycline 100mg po bid x 7 days Dose adjustment(s) made: Torsemide increased to 40 mg daily on 01/15/24. Subjective:legs still seeping, but not as much. Legs sore. Using Neosporin and gauze, fabiano wraps forlight compression. legs not quite as red. Clear watery drainage from wounds noted. Still taking theTorsemide 40 mg daily and the Doxycycline. Denies fever, chills. Legs tender to touch. takingTylenol for pain as needed. Eating and drinking well. Denies any changes in bowels-no diarrhea. Feels thatbreathing is at baseline. No significant change in weight from yesterday. Condition Status: Improvement in symptoms but not at baseline Recommendations provided : Will send to team to see if any additional recommendations, but for now: Continue Torsemide 40 mg po daily Continue doxycycline 100 mg po bid x 7 days until finished Elevate legs when sitting Cleanse legs /open areas with mild soap and water. Apply moisturizer around wounds to intact skin. Cover open areas with non stick pads and cover with compression stockings. Change daily or when soiled/wet. Low sodium diet Daily wts Fluids <2L per day Follow up calls through the weekend Disposition: Routed to [facility] and/or [facility] Care Team for further advice and Follow up call scheduled for tomorrow with [facility] Supervisor Hydrochloric Area Future Visits Scheduled: Future Appointments-next 60 days Date/Time Provider Specialty Dept Phone 01/24/2024 2:30 PM Meri Mae, Community Health Production Trainer; Berny Power PA-C [facility] [phone] 02/01/2024 9:20 AM [facility] Mobile Home Draw Laboratory Processing [phone] 02/12/2024 5:30 PM Peggy De RN [facility] [phone] 02/15/2024 9:20 AM [facility] Mobile Home Draw Laboratory Processing [phone] 02/26/2024 12:30 PM De[place], Nurse Annual Wellness Niru Ancillary [phone] 02/29/2024 9:20 AM [facility], [facility] Mobile Home Draw Laboratory Processing [phone] 03/11/2024 3:15 PM Kalpesh Funes MD Urology [phone] 03/14/2024 9:20 AM [facility], [facility] Mobile Home Draw Laboratory Processing [phone] 03/22/2024 3:00 PM (Arrive by 2:45 PM) Nataly Stone PA-C Nephrology [phone] 03/28/2024 8:00 AM [facility], [facility] Mobile Home Draw Laboratory Processing [phone] 04/11/2024 8:00 AM [facility], [facility] Mobile Home Draw Laboratory Processing [phone] 04/25/2024 8:00 AM [facility], [facility] Mobile Home Draw Laboratory Processing [phone] 05/09/2024 8:00 AM [facility], [facility] Mobile Home Draw Laboratory Processing [phone] 05/23/2024 8:00 AM [facility], [facility] Mobile Home Draw Laboratory Processing [phone] 06/06/2024 8:00 AM [facility], [facility] Mobile Home Draw Laboratory Processing [phone] 06/20/2024 8:00 AM [facility], [facility] Mobile Home Draw Laboratory Processing [phone] 07/04/2024 8:00 AM [facility], [facility] Mobile Home Draw Laboratory Processing [phone] 07/18/2024 8:00 AM [facility], [facility] Mobile Home Draw Laboratory Processing [phone] 08/01/2024 8:00 AM [facility], [facility] Mobile Home Draw Laboratory Processing [phone] 08/15/2024 8:00 AM [facility], [facility] Mobile [facility] Draw Laboratory Processing [phone] 08/29/2024 8:00 AM [facility], [facility] Mobile Home Draw Laboratory Processing [phone] 09/12/2024 8:00 AM [facility], [facility] Mobile Home Draw Laboratory Processing [phone] 09/26/2024 8:00 AM [facility], [facility] Mobile Home Draw Laboratory Processing [phone] Meri Hernadez, RN documented in this encounter Plan of Treatment Upcoming Encounters Date Type Department Care Team (Late st Contact Info) Description 01/19/2024 9:45 AM EDT Scheduled Telephone [facility], [address] [place] [address] Coordinator, [address] [place] [address] 01/20/2024 9:30 AM EDT Scheduled Telephone [facility], [address] [place] [address] Region, Nurse [place] [address] [facility] [place] [address] 01/22/2024 10:00 AM EDT Scheduled Telephone [facility], [address] [place] [address] Coordinator, [address] [place] [address] 01/24/2024 2:30 PM EDT Telemedicine [facility], [address] [place] [address] Berny Power PA-C [address] [place] [address] Meri Mae, Community Health Production Trainer [address] [place] [address] 02/01/2024 9:20 AM EDT Laboratory Lab Mobile Phlebotomy [facility] [address] [place] [address] [facility] Mobile Home Draw [address] [place] [address] 02/12/2024 5:30 PM EDT [facility] Visit [facility] [address] [place] [address] Peggy De, RN [address] [place] [address] 02/15/2024 9:20 AM EDT Laboratory Lab Mobile Phlebotomy [facility] [address] [place] [address] [facility] Mobile Home Draw [address] [place] [address] 02/26/2024 12:30 PM EDT Nurse Only Ancillary [facility] [address] [place] [address] [facility], Nurse [facility] Wellness [facility] [address] [place] [address] 02/29/2024 9:20 AM EDT Laboratory Lab Mobile Phlebotomy [facility] [address] [place] [address] [facility] Mobile Home Draw [address] [place] [address] 03/11/2024 3:15 PM EDT Office Visit Urology, [facility] [address] [place] [address] Kalpesh Funes MD 27 [facility] [address] [place] [place] [address] 03/14/2024 9:20 AM EDT Laboratory Lab Mobile Phlebotomy [facility] [address] [place] [address] [facility] Mobile Home Draw [address] [place] [address] 03/22/2024 3:00 PM EDT Office Visit Nephrology, [facility] [address] [place] [address] ZeNataly bailey PA-C [address] [place] [address] 03/28/2024 8:00 AM EDT Laboratory Lab Mobile Phlebotomy [facility] [address] [place] [address] Gmc, Gml Mobile Home Draw [address] [place] [address] 04/11/2024 8:00 AM EDT Laboratory Lab Mobile Phlebotomy [facility] [address] [place] [address] Gmc, Gml Mobile Home Draw [address] [place] [address] 04/25/2024 8:00 AM EDT Laboratory Lab Mobile Phlebotomy [facility] [address] [place] [address] Gmc, Gml Mobile Home Draw [address] [place] [address] 05/09/2024 8:00 AM EDT Laboratory Lab Mobile Phlebotomy [facility] [address] [place] [address] Gmc, Gml Mobile Home Draw [address] [place] [address] 05/23/2024 8:00 AM EDT Laboratory Lab Mobile Phlebotomy [facility] [address] [place] [address] Gmc, [facility] Mobile Home Draw [address] [place] [address] 06/06/2024 8:00 AM EDT Laboratory Lab Mobile Phlebotomy [facility] [address] [place] [address] Gmc, [facility] Mobile Home Draw [address] [place] [address] 06/20/2024 8:00 AM EDT Laboratory Lab Mobile Phlebotomy [facility] [address] [place] [address] Gmc, [facility] Mobile Home Draw [address] [place] [address] 07/04/2024 8:00 AM EDT Laboratory Lab Mobile Phlebotomy [facility] [address] [place] [address] Gmc, [facility] Mobile Home Draw [address] [place] [address] 07/18/2024 8:00 AM EDT Laboratory Lab Mobile Phlebotomy [facility] [address] [place] [address] Gmc, [facility] Mobile Home Draw [address] [place] [address] 08/01/2024 8:00 AM EDT Laboratory Lab Mobile Phlebotomy [facility] [address] [place] [address] Gmc, [facility] Mobile Home Draw [address] [place] [address] 08/15/2024 8:00 AM EDT Laboratory Lab Mobile Phlebotomy [facility] [address] [place] [address] Gmc, [facility] Mobile Home Draw [address] [place] [address] 08/29/2024 8:00 AM EST Laboratory Lab Mobile Phlebotomy [facility] [address] [place] [address] Gmc, [facility]ml Mobile Home Draw [address] [place] [address] 09/12/2024 8:00 AM EST Laboratory Lab Mobile Phlebotomy [facility] [address] [place] [address] Gmc, [facility] Mobile Home Draw [address] [place] [address] 09/26/2024 8:00 AM EST Laboratory Lab Mobile Phlebotomy [facility] [address] [place] [address] [facility] Mobile Home Draw [address] [place] [address] Health Maintenance Due Date Last Done Comments [...] 023, 03/08/2019, 04/09/2014 CKD PHOS USE SMARTSET 57200 12/07/202411/23, 12/26/2022, 06/21/2021 CKD HGB USE SMARTSET 54897 01/17/202501/17, 01/18/2024, 01/04/2024, Additional history exists COLONOSCOPY-EVERY [...] this encounter Medical Devices Implanted Type Area Grain Blender Device Identifier Shelf Expiration Date Model / Serial / Lot Lens Intraoc 22.5 - [id number] - [id number] Implanted:Qty: 1 on 05/22/2018 by Jasbir Maurer MD at OR [facility] Right: Eye [employer] 11/22/2022 [id number] / [id number] / [id number] Lens Intraoc 21.0 - [id number] - [id number] Implanted:Qty: 1 on 06/05/2018 by Jasbir Maurer MD at OR [facility] Left: Eye [employer]CH [employer] LOMB 12/20/2022 [id number] / [id number] / documented as of this encounter Advance [...] Care Power of Attor mayela Care Teams Lab Coordinator Relationship Specialty Start Date End Date Michael Hinton MD [address] [place] [address] PCP - General Family Medicine 08/07/17 documented as of this encounter
--- OUTSIDE RECORDS SUMMARY | 2024-03-01 06:31 | External Medical Summary | Summary of Care ---
Author Name Unknown Organization [facility] Address [address] [place] [place] [address] Phone [phone] Care Team Providers Care Director Of Revenue Cycle Management Name Role Phone Michael Hinton MD Primary Care Provider [phone] Reason for Visit * Reason Onset Date Comments [facility]: Maintenance 01/17/2024 Encounter Details Date Type Department Care Team (Late st Contact Info) Description 01/17/2024 1:00 PM EDT Scheduled Telephone [facility], [facility] [address] [facility] [place] [address] Coordinator, [facility] [place] [address] [facility] [place] [address] Allergies Active Allergy Reactions Criticality Noted Date Comments Fabiano Inhibitors Cough 06/09/2017 Carbidopa W-Levodopa 03/17/2021 Constipation Nsaids Rash 05/17/[address] monkey documented as of this encounter (statuses as of 01/17/2024) Medications Medication Sig Dispensed Refills Start Date [...] mitral valve regurgitation,Coron daniel artery disease involving [place] coronary artery of [place] heart without angina pectoris,Paroxysmal atrial fibrillation (HCC),Stage 3b chronic kidney disease (HCC) Take 2 Tablets by mouth in the morning. 180 Tablet 3 01/15/2024 Active documented as of this encounter (statuses as of 01/17/2024) Active Problems Problem Noted Date Diagnosed Date [...] knees 03/21/2018 Coronary artery disease invo lving [place] coronary artery of [place] heart without angina pectoris 03/21/2018 Last Assessment [...] as of this encounter (statuses as of 01/17/2024) Resolved Problems Problem Noted Date Diagnosed Date [...] scanned document from 11/13/[address] [facility], [facility]. Coronary artery disease [...] as of this encounter (statuses as of 01/17/2024) Immunizations Name Administration Dates Next Due COVID-19 [...] Telephone Encounter - Meri Hernadez RN - 01/17/2024 1:47 PM EDT Images from the original note were not included. [facility]onic [facility] Follow-Up Call [facility] Subprogram: Primary Care at Home Follow Up Call Type: 48 hour follow up Acute issue requiring follow-up call: Other: follow up on change in antibiotic for BLE redness, edema in legs- increased torsemide. Objective: 01/15/2024 12:06 PM 12/04/2023 12:09 PM 11/30/2023 2:51 PM 11/30/2023 2:47 PM 11/30/2023 2:45 PM VITALS ACROSS ENCOUNTERS BP 104/62 148/68 126/56 114/48 71/52 Pulse 65 82 62 72 Weight 76.9 kg 75.3 kg 75.4 kg BMI 28.22 kg/m2 27.62 kg/m2 27.66 kg/m2 Remote Patient Monitoring: [facility] Scale: wt today 170.6 lbs Medications: New medication(s) added: Keflex d/c'd 01/15/24. Started Doxycycline 100mg po bid x 7 days Dose adjustment(s) made: Torsemide increased to 40 mg daily on 01/15/24. Subjective: Condition Status: No change in symptoms Current Concerns: spoke with patient's . States that pt is not currently available. Reports that legs look the same as when Peggy RN saw pt on 01/14. Still seeping and red. Confirmed pt is takingDoxycycline and Torsemide as ordered above. Wt and edema about the same as 01/15/24. Denies increased sob. See trending below. Denies fever, chills, or increase in pain. Only tender when touched. asking what to do with open/ seeping areas on legs. Recommendations provided : Will send to team [...] wts Fluids <2L per day Follow up call with Circuit Breaker Assembler tomorrow as well Mobile lab to obtain ordered labs tomorrow Disposition: Routed to [facility] and/or [facility] Care Team for further advice and Follow up call scheduled for tomorrow with PROMOTIONS REPRESENTATIVE Circuit Breaker Assembler Future Visits Scheduled: Future Appointments-next 60 days Date/Time Provider Specialty Dept Phone 01/18/2024 9:20 AM [facility], [facility] Mobile Home Draw Laboratory Processing [phone] 01/18/2024 11:00 AM CoordinatorSnehal [facility] [phone] 01/24/2024 2:30 PM Meri Mae, Community Health [employer] District Supervisor; Berny Power PA-C [facility] [phone] 02/01/2024 9:20 AM [facility], [facility] Mobile Home Draw Laboratory Processing [phone] 02/12/2024 5:30 PM Peggy De RN [facility] [phone] 02/15/2024 9:20 AM [facility], [facility] Mobile Home Draw Laboratory Processing [phone] 02/26/2024 12:30 PM Jeronimo, Nurse Annual Wellness [facility] Ancillary [phone] 02/29/2024 9:20 AM [facility], [facility] Mobile Home Draw Laboratory Processing [phone] 03/11/2024 3:15 PM Kalpesh Funes MD Urology [phone] 03/14/2024 9:20 AM [facility] Mobile Home Draw Laboratory Processing [phone] 03/22/2024 3:00 PM (Arrive by 2:45 PM) Nataly Stone PA-C Nephrology [phone] 03/28/2024 8:00 AM [facility] Mobile Home Draw Laboratory Processing [phone] 04/11/2024 8:00 AM [facility] Mobile Home Draw Laboratory Processing [phone] 04/25/2024 8:00 AM [facility] Mobile Home Draw Laboratory Processing [phone] 05/09/2024 8:00 AM [facility] Mobile Home Draw Laboratory Processing [phone] 05/23/2024 8:00 AM [facility] Mobile Home Draw Laboratory Processing [phone] 06/06/2024 8:00 AM [facility] Mobile Home Draw Laboratory Processing [phone] 06/20/2024 8:00 AM [facility] Mobile Home Draw Laboratory Processing [phone] 07/04/2024 8:00 AM [facility] Mobile Home Draw Laboratory Processing [phone] 07/18/2024 8:00 AM [facility] Mobile Home Draw Laboratory Processing [phone] 08/01/2024 8:00 AM [facility] Mobile Home Draw Laboratory Processing [phone] 08/15/2024 8:00 AM [facility] Mobile Home Draw Laboratory Processing [id number] 08/29/2024 8:00 AM [facility] Mobile Home Draw Laboratory Processing [phone] 09/12/2024 8:00 AM [facility] Mobile Home Draw Laboratory Processing [id number] 09/26/2024 8:00 AM [facility] Mobile Home Draw Laboratory Processing [phone] Meri Hernadez, RN documented in this encounter Plan of Treatment Upcoming Encounters Date Type Department Care Team (Late st Contact Info) Description 01/18/2024 9:20 AM EDT Laboratory Lab Mobile [facility]bot[facility] [address] [place] [address] [facility], [facility] Mobile Home Draw [address] [place] [address] 01/18/2024 11:00 AM EDT Scheduled Telephone [facility], [facility] [address] [place] [address] Coordinator, [facility] [place] [address] [place] [address] 01/24/2024 2:30 PM EDT Telemedicine [facility], [facility] [address] [facility] [place] [address] Berny Power PA-C [address] [place] [address] Meri Mae, Community Health [employer] District Supervisor [address] [place] [address] 02/01/2024 9:20 AM EDT Laboratory Lab Mobile Phlebotomy [facility] [address] [place] [address] [facility], [facility] Mobile Home Draw [address] [place] [address] 02/12/2024 5:30 PM EDT Home Visit [facility], [facility] [address] [facility] [place] [address] Peggy De, RN [address] [place] [address] 02/15/2024 9:20 AM EDT Laboratory Lab Mobile [facility]bot[facility] [address] [place] [address] [facility], [facility] Mobile Home Draw [address] [place] [address] 02/26/2024 12:30 PM EDT Nurse Only Ancillary [facility] [address] [place] [address] [facility], Nurse Annual Wellness [facility] [address] [place] [address] 02/29/2024 9:20 AM EDT Laboratory Lab Mobile Phlebotomy [facility] [address] [place] [address] [facility], [facility] Mobile Home Draw [address] [place] [address] 03/11/2024 3:15 PM EDT Office Visit Urology, [facility] [address] [place] [address] Kalpesh Funes MD [address] [place] [address] 03/14/2024 9:20 AM EDT Laboratory Lab Mobile Phlebotomy [facility] [address] [place] [address] [facility], [facility] Mobile Home Draw [address] [place] [address] 03/22/2024 3:00 PM EDT Office Visit Nephrology, [facility] [address] [place] [address] ZeNataly bailey PA-C [address] [place] [address] 03/28/2024 8:00 AM EDT Laboratory Lab Mobile Phlebotomy [facility] [address] [place] [address] [facility], [facility] Mobile Home Draw [address] [place] [address] 04/11/2024 8:00 AM EDT Laboratory Lab Mobile Phlebotomy [facility] [address] [place] [address] [facility], [facility] Mobile Home Draw [address] [place] [address] 04/25/2024 8:00 AM EDT Laboratory Lab Mobile Phlebotomy [facility] [address] [place] [address] [facility], [facility] Mobile Home Draw [address] [place] [address] 05/09/2024 8:00 AM EDT Laboratory Lab Mobile Phlebotomy [facility] [address] [place] [address] [facility], [facility] Mobile Home Draw [address] [place] [address] 05/23/2024 8:00 AM EDT Laboratory Lab Mobile Phlebotomy [facility] [address] [place] [address] [facility], [facility] Mobile Home Draw [address] [place] [address] 06/06/2024 8:00 AM EDT Laboratory Lab Mobile Phlebotomy [facility] [address] [place] [address] [facility], [facility] Mobile Home Draw [address] [place] [address] 06/20/2024 8:00 AM EDT Laboratory Lab Mobile Phlebotomy [facility] [address] [place] [address] [facility], [facility] Mobile Home Draw [address] [place] [address] 07/04/2024 8:00 AM EDT Laboratory Lab Mobile Phlebotomy [facility] [address] [place] [address] [facility], [facility] Mobile Home Draw [address] [place] [address] 07/18/2024 8:00 AM EDT Laboratory Lab Mobile Phlebotomy [facility] [address] [place] [address] [facility], [facility] Mobile Home Draw [address] [place] [address] 08/01/2024 8:00 AM EDT Laboratory Lab Mobile Phlebotomy [facility] [address] [place] [address] [facility], [facility] Mobile Home Draw [address] [place] [address] 08/15/2024 8:00 AM EDT Laboratory Lab Mobile Phlebotomy [facility] [address] [place] [address] [facility], [facility] Mobile Home Draw [address] [place] [address] 08/29/2024 8:00 AM EST Laboratory Lab Mobile Phlebotomy [facility] [address] [place] [address] [facility], [facility] Mobile Home Draw [address] [place] [address] 09/12/2024 8:00 AM EST Laboratory Lab Mobile Phlebotomy [facility] [address] [place] [address] [facility], [facility] Mobile Home Draw [address] [place] [address] 09/26/2024 8:00 AM EST Laboratory Lab Mobile Phlebotomy [facility] [address] [place] [address] [facility], [facility] Mobile Home Draw [address] [place] [address] Health Maintenance Due Date Last Done Comments [...] 023, 03/08/2019, 04/09/2014 CKD PHOS USE SMARTSET 99158 12/07/202411/23, 12/26/2022, 06/21/2021 CKD HGB USE SMARTSET 29769 01/03/202501/03, 01/04/2024, 12/21/2023, Additional history exists COLONOSCOPY-EVERY 3 YRS AGES [...] this encounter Medical Devices Implanted Type Area Wealth Management Director Device Identifier Shelf Expiration Date Model / Serial / Lot Lens Intraoc 22.5 - [id number] - [id number] Implanted:Qty: 1 on 05/22/2018 by Jasbir Maurer MD at OR [facility] Right: Eye [employer] 11/22/2022 [id number] / [id number] / [id number] Lens Intraoc 21.0 - [id number] - [id number] Implanted:Qty: 1 on 06/05/2018 by Jasbir Maurer MD at OR [facility] Left: Eye [employer] 12/20/2022 [id number] / [id number] / documented as of this encounter Advance [...] Agents on File Name Relationship Healthcare Agent [facility] Communication Ashley Jose Spouse Health Care Power of Attor mayela Care Teams Director Of Revenue Cycle Management Relationship Specialty Start Date End Date Michael Hinton MD [address] [place] [address] PCP - General Family Medicine 08/07/17 documented as of this encounter
--- OUTSIDE RECORDS SUMMARY | 2024-03-01 06:31 | External Medical Summary ---
Author Name Unknown Address Unknown Organization K01:LABORATORY [facility] - [address] [place] [address] [place] [address] Laboratory Report Ordering Provider Test Date Status GUERRERO CHAUHAN 01/18/2024 10:26:00 Final Observation Date Value Abnormality Reference (Units ) Status Ferritin 01/18/2024 10:26:00 230 30-400 (ng /mL) Final Performing Location [facility] - [address] [place] [address]
--- OUTSIDE RECORDS SUMMARY | 2024-03-01 06:31 | External Medical Summary | Summary of Care ---
Author Name Unknown Organization [facility] Address [address] [place] [address] Phone [phone] Care Team Providers Care Regulatory Affairs Associate Name Role Phone Michael Hinton MD Primary Care Provider [phone] Encounter Details Date Type Department Care Team (Late st Contact Info) Description 01/17/2024 Telephone [facility], [facility] [address] [place] [address] So Ivey, HALLIE [address] [place] [address] Allergies Active Allergy Reactions Criticality Noted Date Comments Fabiano Inhibitors Cough 06/09/2017 Carbidopa W-Levodopa 03/17/2021 Constipation Nsaids Rash 05/17/2018 Contraindicated per account officer documented as of this encounter (statuses as [...] mitral valve regurgitation,Coron daniel artery disease involving [place] coronary artery of [place] heart without angina pectoris,Paroxysmal atrial fibrillation (HCC),Stage [...] Last Assessment & Plan: Followed closely by [facility] hematology. No identified cause of HUNTER. [...] knees 03/21/2018 Coronary artery disease invo lving [place] coronary artery of [place] heart without angina pectoris 03/21/2018 Last Assessment [...] document from 11/13/[address] bains [facility]. Coronary artery disease due [...] PM EDT Scheduled Telephone [facility], [place] [address] [address] [place] [address] Coordinator, [place] [address] [address] [place] [address] 01/18/2024 9:20 AM EDT Laboratory Lab Mobile [facility] [address] [place] [address] [facility], [facility] Mobile Home Draw [address] [place] [address] 01/18/2024 11:00 AM EDT Scheduled Telephone [facility], [place] [address] [address] [place] [address] Coordinator, [place] [address] [address] [place] [address] 01/24/2024 2:30 PM EDT Telemedicine [facility], [facility] [address] [place] [address] Berny Power PA-C [address] [place] [address] Meri Mae, Community Health Melter Clerk [address] [place] [address] 02/01/2024 9:20 AM EDT Laboratory Lab Mobile [facility]bot[facility] [address] [place] [address] [facility], [facility] Mobile Home Draw [address] [place] [address] 02/12/2024 5:30 PM EDT Home Visit [facility] [address] [place] [address] Peggy De RN [address] [place] [address] 02/15/2024 9:20 AM EDT Laboratory Lab Mobile Phlebotomy [facility] [address] [place] [address] [facility], [facility] Mobile Home Draw [address] [place] [address] 02/26/2024 12:30 PM EDT Nurse Only Ancillary [facility] [address] [place] [address] [facility], Nurse Annual Wellness [facility] [address] [place] [address] 02/29/2024 9:20 AM EDT Laboratory Lab Mobile Phlebotomy [facility] [address] [place] [address] [facility] Mobile Home Draw [address] [place] [address] 03/11/2024 3:15 PM EDT Office Visit Urology, [facility] [address] [place] [address] Kalpesh Funes MD [address] [place] [address] [place] [address] 03/14/2024 9:20 AM EDT Laboratory Lab Mobile Phlebotomy [facility] [address] [place] [address] [facility], [facility] Mobile Home Draw [address] [place] [address] 03/22/2024 3:00 PM EDT Office Visit Nephrology, Lily Bessie [address] [facility] [place] [address] ZeNataly bailey PA-C [address] [facility] [place] [address] 03/28/2024 8:00 AM EDT Laboratory Lab Mobile Phlebotomy [facility] [address] [place] [address] c, [facility] Mobile Home Draw [address] [place] 04/11/2024 8:00 AM EDT Laboratory Lab Mobile Phlebotomy [facility] [address] [place] [address] [facility], [facility] Mobile Home Draw [address] [place] 04/25/2024 8:00 AM EDT Laboratory Lab Mobile Phlebotomy [facility] [address] [place], [place] [phone] [facility], [facility] Mobile Home Draw [address] [place], [place] 05/09/2024 8:00 AM EDT Laboratory Lab Mobile Phlebotomy [facility] [address] [place] [address] [facility], [facility] Mobile Home Draw [address] [place] 05/23/2024 8:00 AM EDT Laboratory Lab Mobile Phlebotomy [facility] [address] [place] [address] [facility], [facility] Mobile Home Draw [address] [place] [address] 06/06/2024 8:00 AM EDT Laboratory Lab Mobile Phlebotomy [facility] [address] [place] [address] [facility], [facility] Mobile Home Draw [address] [place] [address] 06/20/2024 8:00 AM EDT Laboratory Lab Mobile Phlebotomy [facility] [address] [place] [address] [facility], [facility] Mobile Home Draw [address] [place] [address] 07/04/2024 8:00 AM EDT Laboratory Lab Mobile Phlebotomy [facility] [address] [place] [address] [facility], [facility] Mobile Home Draw [address] [place] [address] 07/18/2024 8:00 AM EDT Laboratory Lab Mobile Phlebotomy [facility] [address] [place] [address] [facility], [facility] Mobile Home Draw [address] [place] [address] 08/01/2024 8:00 AM EDT Laboratory Lab Mobile Phlebotomy [facility] [address] [place] [address] [facility], [facility] Mobile Home Draw [address] [place] [address] 08/15/2024 8:00 AM EDT Laboratory Lab Mobile Phlebotomy [facility] [address] [place] [address] [facility], [facility] Mobile Home Draw [address] [place] [address] 08/29/2024 8:00 AM EST Laboratory Lab Mobile Phlebotomy [facility] [address] [place] [address] [facility], [facility] Mobile Home Draw [address] [place] [address] 09/12/2024 8:00 AM EST Laboratory Lab Mobile Phlebotomy [facility] [address] [place] [address] [facility], [facility] Mobile Home Draw [address] [place] [address] 09/26/2024 8:00 AM EST Laboratory Lab Mobile Phlebotomy [facility] [address] [place] [address] Gm, [facility] Mobile Home Draw [address] [place] [address] Scheduled Orders Name Type Priority Associated Diagnoses Orde r Schedule LIPID PANEL WITH DIRECT LDL IF TG IS HIGH Lab Routine Dyslipidemia Expected: 01/17/2024, Expires: 01/16/2025 Health Maintenance Due Date Last Done Comments [...] 023, 03/08/2019, 04/09/2014 CKD PHOS USE SMARTSET 84303 12/07/202411/23, 12/26/2022, 06/21/2021 CKD HGB USE SMARTSET 12872 01/03/202501/03, 01/04/2024, 12/21/2023, Additional history exists COLONOSCOPY-EVERY [...] this encounter Medical Devices Implanted Type Area Restaurant Assistant Manager Device Identifier Shelf Expiration Date Model / Serial / Lot Lens Intraoc 22.5 - [id number] - [id number] Implanted:Qty: 1 on 05/22/2018 by Jasbir Maurer MD at OR [facility] Right: Eye [employer] 11/22/2022 [id number] / [id number] / [id number] Lens Intraoc 21.0 - [id number] - [id number] Implanted:Qty: 1 on 06/05/2018 by Jasbir Maurer MD at OR [facility] Left: Eye [employer] 12/20/2022 [id number] / [id number] / documented as of this encounter Visit Diagnoses Diagnosis Dyslipidemia- Primary Other and unspecified hyperlipidemia documented in this encounter Advance Directives Latest [...] Care Power of Attor mayela Care Teams Regulatory Affairs Associate Relationship Specialty Start Date End Date Michael Hinton MD [address] [place] [address] PCP - General Family Medicine 08/07/17 documented as of this encounter
--- OUTSIDE RECORDS SUMMARY | 2024-03-01 06:31 | External Medical Summary | Summary of Care ---
Author Name Unknown Organization [facility] Address [address] [place] [address] Phone [phone] Care Team Providers Care Single Pointed Operator Name Role Phone Michael Hinton MD Primary Care Provider [phone] Reason for Visit * Reason Onset Date Comments [facility]: Maintenance 01/15/2024 Encounter Details Date Type Department Care Team (Late st Contact Info) Description 01/15/2024 Telephone [facility], [facility] [address] [place] [address] [facility], Nurse [facility] [address] [place] [address] [facility]: Maintenance Allergies Active Allergy Reactions Criticality Noted Date Comments Fabiano Inhibitors Cough 06/09/2017 Carbidopa W-Levodopa 03/17/2021 Constipation Nsaids Rash 05/17/2018 Contraindicated per de icer installer documented as of this encounter (statuses as of 01/15/2024) Medications Medication Sig Dispensed Refills Start Date [...] MORNING 90 Tablet 3 01/23/2023 02/16/2024 Active Torsemide 20 MG Oral Tablet (Demadex)Indication s:Nonrheumatic mitral valve regurgitation,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 Coronary artery disease [...] as of this encounter (statuses as of 01/15/2024) Immunizations Name Administration Dates Next Due COVID-19 [...] Telephone Encounter - Regina Tobar LPN - 01/15/2024 8:34 AM EDT Images from the original note were not included. NA christine Has RNCM appt today documented in this encounter Plan of Treatment Upcoming Encounters Date Type Department Care Team (Late st Contact Info) Description 01/15/2024 12:30 PM EDT [facility] Visit [facility] [place], [facility] 132 [facility] [place] [address] Peggy De RN [facility] [place] [address] 01/18/2024 9:20 AM EDT Laboratory Lab Mobile Phlebotomy [facility] [address] [place] [address] [facility] Mobile Home Draw [address] [place] [address] 01/24/2024 2:30 PM EDT Telemedicine [facility] 132 [facility] [place] [address] Berny Power PA-C 132 [facility] [place] [address] Meri Mae, [facility] [employer] [address] [place] [address] 02/01/2024 9:20 AM EDT Laboratory Lab Mobile Phlebotomy [facility] [address] [place] [address] [facility] Mobile Home Draw [address] [place] [address] 02/15/2024 9:20 AM EDT Laboratory Lab Mobile Phlebotomy [facility] [address] [place] [address] [facility] Mobile Home Draw [address] [place] [address] 02/26/2024 12:30 PM EDT Nurse Only Ancillary [address] [address] [facility], Nurse Annual Wellness [facility] [address] [place] [address] 02/29/2024 9:20 AM EDT Laboratory Lab Mobile Phlebotomy [facility] [address] [place] [address] [facility] Mobile Home Draw [address] [place] [address] 03/11/2024 3:15 PM EDT Office Visit Urology, [facility] [address] [place] [address] Kalpesh Funes MD [address] [address] [place] [address] 03/14/2024 9:20 AM EDT Laboratory Lab Mobile Phlebotomy [facility] [address] [place] [address] [facility] [place], [facility] Mobile Home Draw [address] [place] [address] 03/22/2024 3:00 PM EDT Office Visit Nephrology, [facility] 200 [facility] [place] [address] Zemaitis, Nataly Christine PA-C [address] [place] [address] 03/28/2024 8:00 AM EDT Laboratory Lab Mobile Phlebotomy [facility] [address] [place] [address] [facility], [facility] Mobile Home Draw [address] [place] [address] 04/11/2024 8:00 AM EDT Laboratory Lab Mobile Phlebotomy [facility] [address] [place] [address] [facility] Mobile Home Draw [address] [place] [address] 04/25/2024 8:00 AM EDT Laboratory Lab Mobile Phlebotomy [facility] [address] [place] [address] [facility], [facility] Mobile Home Draw [address] [place] [address] 05/09/2024 8:00 AM EDT Laboratory Lab Mobile Phlebotomy [facility] [address] [place] [address] [facility], [facility] Mobile Home Draw [address] [place] [address] 05/23/2024 8:00 AM EDT Laboratory Lab Mobile Phle[facility] [address] [place] [address] [facility], [facility] Mobile Home Draw [address] [place] [address] 06/06/2024 8:00 AM EDT Laboratory Lab Mobile Phlebotomy [facility] [address] [place] [address] [facility], [facility] Mobile Home Draw [address] [place] [address] 06/20/2024 8:00 AM EDT Laboratory Lab Mobile Phlebotomy [facility] [address] [place] [address] [facility], [facility] Mobile Home Draw [address] [place] [address] 07/04/2024 8:00 AM EDT Laboratory Lab Mobile Ph[facility] [address] [place] [address] [facility], [facility] Mobile Home Draw [address] [place] [address] 07/18/2024 8:00 AM EDT Laboratory Lab Mobile Phlebot[facility] [address] [place] [address] [facility], [facility] Mobile Home Draw [address] [place] [address] 08/01/2024 8:00 AM EDT Laboratory Lab Mobile Phle[facility] [address] [place] [address] [facility], [facility] Home Draw [address] [place] [address] 08/15/2024 8:00 AM EDT Laboratory Lab [facility] Phle[facility] [address] [place] [address] [facility], [facility] Mobile Home Draw [address] [place] [address] 08/29/2024 8:00 AM EST Laboratory Lab [facility] Ph[facility] [address] [place] [address] [facility], [facility] Mobile Home Draw [address] [place] [address] 09/12/2024 8:00 AM EST Laboratory Lab Mobile Phlebot[facility] [address] [place] [address] [facility], [facility] Mobile Home Draw [address] [place] [address] 09/26/2024 8:00 AM EST Laboratory Lab Mobile Phlebotomy [facility] [address] [place] [address] [facility] [place] l Mobile Home Draw [address] [place] [address] Health Maintenance Due Date Last Done Comments [...] 023, 03/08/2019, 04/09/2014 CKD PHOS USE SMARTSET 62570 12/07/202411/23, 12/26/2022, 06/21/2021 CKD HGB USE SMARTSET 11872 01/03/202501/03, 01/04/2024, 12/21/2023, Additional history exists COLONOSCOPY-EVERY [...] encounter Medical Devices Implanted Type Area Supervisor Pullet Farm Device Identifier Shelf Expiration Date Model / Serial / Lot Lens Intraoc 22.5 - [id number] - [id number] Implanted:Qty: 1 on 05/22/2018 by Jasbir Maurer MD at OR [facility] Right: Eye [employer] 11/22/2022 [id number] / [id number] / [id number] Lens Intraoc 21.0 - [id number] - [id number] Implanted:Qty: 1 on 06/05/2018 by Jasbir Maurer MD at OR [facility] Left: Eye [employer] 12/20/2022 [id number] / [id number] / documented as of this encounter Advance [...] Care Power of Attor mayela Care Teams Single Pointed Operator Relationship Specialty Start Date End Date Michael Hinton MD [address] [place] [address] PCP - General Family Medicine 08/07/17 documented as of this encounter
--- OUTSIDE RECORDS SUMMARY | 2024-03-01 06:31 | External Medical Summary | Summary of Care ---
Author Name Unknown Organization [facility] Address [address] [facility] [place] [address] Phone [phone] Care Team Providers Care Button Puncher Name Role Phone Michael Hinton MD Primary Care Provider [phone] Reason for Visit * Reason Onset Date Comments [facility]: Maintenance 01/18/2024 Encounter Details Date Type Department Care Team (Late st Contact Info) Description 01/18/2024 11:00 AM EDT Scheduled Telephone [facility], [facility] 132 [facility] [place] [address] Coordinator, [facility] 132 [facility] [place] [address] Allergies Active Allergy Reactions Criticality Noted Date Comments Fabiano Inhibitors Cough 06/09/2017 Carbidopa W-Levodopa 03/17/2021 Constipation Nsaids Rash 05/17/2018 Contraindicated per telecommunications cable jointer documented as of this encounter (statuses as [...] mitral valve regurgitation,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y [...] from the original note were not included. [facility]Up [facility] Subprogram: Primary Care at Home Follow [...] 27.62 kg/m2 27.66 kg/m2 Remote Patient Monitoring: [facility] Scale: wt 170.0 lbs. Oxygen Needs: NO [...] calls through the weekend Disposition: Routed to [facility] and/or [facility] Care Team for further advice and Follow up call scheduled for tomorrow with [employer]ER[employer] LOADER [employer] Future Visits Scheduled: Future Appointments-next 60 days Date/Time Provider Specialty Dept Phone 01/24/2024 2:30 PM Meri Mae, [facility] Jewel Sawyer; Berny Power PA-C [facility] [phone] 02/01/2024 9:20 AM [facility] [place], [facility] Mobile Home Draw Laboratory Processing [phone] 02/12/2024 5:30 PM Peggy De RN [facility] [place] [phone] 02/15/2024 9:20 AM [facility], [facility] Mobile Home Draw Laboratory Processing [phone] 02/26/2024 12:30 PM [place], Nurse Annual Wellness Niru Ancillary [phone] 02/29/2024 9:20 AM [facility], [facility] Mobile Home Draw Laboratory Processing [phone] 03/11/2024 3:15 PM Kalpesh Funes MD Urology [phone] 03/14/2024 9:20 AM [facility], [facility] Mobile Home Draw Laboratory Processing [phone] 03/22/2024 3:00 PM (Arrive by 2:45 PM) Nataly Stone PA-C Nephrology [phone] 03/28/2024 8:00 AM [facility], [facility] Mobile Home Draw Laboratory Processing [phone] 04/11/2024 8:00 AM [facility], [facility] Mobile Home Draw Laboratory Processing [phone] 04/25/2024 8:00 AM [facility], [facility] Mobile Home Draw Laboratory Processing [id number] 05/09/2024 8:00 AM [facility], [facility] Mobile Home Draw Laboratory Processing [id number] 05/23/2024 8:00 AM [facility], [facility] Mobile Home Draw Laboratory Processing [id number] 06/06/2024 8:00 AM [facility], [facility] Mobile Home Draw Laboratory Processing [id number] 06/20/2024 8:00 AM [facility], [facility] Mobile Home Draw Laboratory Processing [id number] 07/04/2024 8:00 AM [facility], [facility] Mobile Home Draw Laboratory Processing [id number] 07/18/2024 8:00 AM [facility], [facility] Mobile Home Draw Laboratory Processing [phone] 08/01/2024 8:00 AM [facility], [facility] Mobile Home Draw Laboratory Processing [phone] 08/15/2024 8:00 AM [facility], [facility] Mobile Home Draw Laboratory Processing [id number] 08/29/2024 8:00 AM [facility], [facility] Mobile Home Draw Laboratory Processing [phone] 09/12/2024 8:00 AM [facility], [facility] Mobile Home Draw Laboratory Processing [id number] 09/26/2024 8:00 AM [facility], [facility] Mobile Home Draw Laboratory Processing [phone] Meri Hernadez, RN documented in this encounter Plan of Treatment Upcoming Encounters Date Type Department Care Team (Late st Contact Info) Description 01/19/2024 9:[address] ED[address] [facility] 132 [facility] [place] [address] Coordinator, [facility] [address] [facility] [place] [address] 01/20/2024 9:30 AM EDT Scheduled Telephone [facility], [facility] 132 [place] [place] [address] Region, Nurse [facility] [address] [place] [address] 01/22/2024 10:00 AM EDT Scheduled Telephone [facility], [facility] [address] [place] [address] Coordinator, [facility] [address] [place] [address] 01/24/2024 2:30 PM EDT Telemedicine [facility], [facility] [address] [place] [address] Berny Power PA-C [address] [place] [address] Meri Mae, [facility] Jewel Sawyer [address] [place] [address] 02/01/2024 9:20 AM EDT Laboratory Lab Mobile Phlebotomy [facility] [address] [place] [address] [facility], [facility] Mobile Home Draw [address] [place] [address] 02/12/2024 5:30 PM EDT [facility] Visit [facility], [facility] [address] [place] [address] Peggy De, RN [address] [place] [address] 02/15/2024 9:20 AM EDT Laboratory Lab Mobile Phlebotomy [facility] [address] [place] [address] [facility], [facility] Mobile Home Draw [address] [place] [address] 02/26/2024 12:30 PM EDT Nurse Only Ancillary [facility] [address] [place] [address] [facility], Nurse Annual Wellness [facility] [address] [place] [address] 02/29/2024 9:20 AM EDT Laboratory Lab Mobile Phlebotomy [facility] [address] [place] [address] [facility], [facility] Mobile Home Draw [address] [place] [address] 03/11/2024 3:15 PM EDT Office Visit Urology, [facility] [address] [place] [address] Kalpesh Funes MD [address] [address] 03/14/2024 9:20 AM EDT Laboratory Lab Mobile Phlebotomy [facility] [address] [place] [address] [facility], [facility] Mobile Home Draw [address] [place] [address] 03/22/2024 3:00 PM EDT Office Visit Nephrology, [facility] [address] [place], [place] [address] Nataly Stone PA-C [address] [place] [address] 03/28/2024 8:00 AM EDT Laboratory Lab Mobile Phlebotomy [facility] [address] [place] [address] [facility], [facility] Mobile Home Draw [address] [place] [address] 04/11/2024 8:00 AM EDT Laboratory Lab Mobile Phlebotomy [facility] [address] [place] [address] [facility], [facility] Mobile Home Draw [address] [place] [address] 04/25/2024 8:00 AM EDT Laboratory Lab Mobile Phlebotomy [facility] [address] [place] [address] Gmc, [facility] Mobile Home Draw [address] [place] [address] 05/09/2024 8:00 AM EDT Laboratory Lab Mobile Phlebotomy [facility] [address] [place] [address] [facility], [facility] Mobile Home Draw [address] [place] [address] 05/23/2024 8:00 AM EDT Laboratory Lab Mobile Phlebotomy [facility] [address] [place] [address] Gmc, [facility] Mobile Home Draw [address] [place] [address] 06/06/2024 8:00 AM EDT Laboratory Lab Mobile Phlebotomy [facility] [address] [place] [address] Gmc, [facility] Mobile Home Draw [address] [place] [address] 06/20/2024 8:00 AM EDT Laboratory Lab Mobile Phlebotomy [facility] [address] [place] [address] Gmc, [facility] Mobile Home Draw [address] [place] [address] 07/04/2024 8:00 AM EDT Laboratory Lab Mobile Phlebotomy [facility] [address] [place] [address] Gmc, [facility]ml Mobile Home Draw [address] [place] [address] 07/18/2024 8:00 AM EDT Laboratory Lab Mobile Phlebotomy [facility] [address] [place] [address] [facility], Gm Mobile Home Draw [address] [place] [address] 08/01/2024 8:00 AM EDT Laboratory Lab Mobile Phlebotomy [facility] [address] [place] [address] [facility], [facility] Mobile Home Draw [address] [place] [address] 08/15/2024 8:00 AM EDT Laboratory Lab Mobile Phlebotomy [facility] [address] [place] [address] [facility], [facility] Mobile Home Draw [address] [place] [address] 08/29/2024 8:00 AM EST Laboratory Lab Mobile Phlebotomy [facility] [address] [place] [address] [facility], Gm Mobile Home Draw [address] [place] [address] 09/12/2024 8:00 AM EST Laboratory Lab Mobile Phlebotomy [facility] [address] [place] [address] [facility], [facility] Mobile Home Draw [address] [place] [address] 09/26/2024 8:00 AM EST Laboratory Lab Mobile Phlebotomy [facility] [address] [place] [address] [facility], l Mobile Home Draw [address] [place] [address] Health Maintenance Due Date Last Done Comments [...] 023, 03/08/2019, 04/09/2014 CKD PHOS USE SMARTSET 77368 12/07/202411/23, 12/26/2022, 06/21/2021 CKD HGB USE SMARTSET 39253 01/17/202501/17, 01/18/2024, 01/04/2024, Additional history exists COLONOSCOPY-EVERY [...] this encounter Medical Devices Implanted Type Area Bilingual Sales Representative Device Identifier Shelf Expiration Date Model / Serial / Lot Lens Intraoc 22.5 - [id number] - [id number] Implanted:Qty: 1 on 05/22/2018 by Jasbir Maurer MD at OR [facility] Right: Eye [employer] 11/22/2022 [id number] / [id number] / [id number] Lens Intraoc 21.0 - [id number] - [id number] Implanted:Qty: 1 on 06/05/2018 by Jasbir Maurer MD at OR [facility] Left: Eye [employer] 12/20/2022 [id number] / [id number] / documented as of this encounter Advance [...] Care Power of Attor mayela Care Teams Button Puncher Relationship Specialty Start Date End Date Michael Hinton MD 132 [place] [address] PCP - General Family Medicine 08/07/17 documented as of this encounter
--- OUTSIDE RECORDS SUMMARY | 2024-03-01 06:31 | External Medical Summary ---
Author Name Unknown Address Unknown Organization K0G:[facility] [place] [facility] - [address] [place] [address] Laboratory Report Ordering Provider Test Date Status GUERRERO CHAUHAN 01/18/2024 10:26:00 Final Observation Date Value Abnormality Reference (Units ) Status SYNC LEUKOCYTES IN BLOOD BY AUTOMATED COUNT 01/18/2024 10:26:00 3.52 Below low normal 4.00-10.80 (K/uL) Final Segs 01/18/2024 10:26:00 66.7 40.0-75.0 (%) Final Lymphs % 01/18/2024 10:26:00 22.4 18.0-42.0 (%) Final Monos 01/18/2024 10:26:00 9.4 1.0-11.0 (%) Final Eosinophils 01/18/2024 10:26:00 0.9 0.0-6.0 (%) Final Basos 01/18/2024 10:26:00 0.6 0.0-2.0 (%) Final Absolute Segs 01/18/2024 10:26:00 2.35 1.80-7.70 (K/uL) Final Lymphs, absolute 01/18/2024 10:26:00 0.79 Below low normal 1.00-4.80 (K/ul) Final Monos, Abs 01/18/2024 10:26:00 0.33 0.00-1.10 (K/uL) Final Eos, Abs 01/18/2024 10:26:00 0.03 0.00-0.70 (K/uL) Final Basos, Abs 01/18/2024 10:26:00 0.02 0.00-0.20 (K/uL) Final Performing Location [facility] [place] [facility]-[address] 0 - [address] [place] [address]
--- OUTSIDE RECORDS SUMMARY | 2024-03-01 06:31 | External Medical Summary ---
Author Name Unknown Address Unknown Organization K01:[facility] [place] - [address] [facility] [address] Laboratory Report Ordering Provider Test Date Status RICHIE FRANCISCO 01/18/2024 10:26:00 Final Observation Date Value Abnormality Reference (Units ) Status Triglyceride 01/18/2024 10:26:00 74 <=174 ( mg/dL) Final Triglyceride Reference Range s (mg/dL):
<150 Acceptable
150-174 Borderline high
175-499 High
>=500 Very high Cholesterol 01/18/2024 10:26:00 156 <200 (mg /dL) Final Total Cholesterol Reference Ranges (mg/dL):
<200 Desirable
200-239 Borderline high
>=240 High HDL 01/18/2024 10:26:00 72 >39 (mg/dL ) Final HDL Cholesterol Reference Ra nges (mg/dL):
>=60 High (Desirable)
<50 Low (Undesirable) For Females
<40 Low (Undesirable) For Males NON-HDL CHOLESTEROL 01/18/2024 10:26:00 84 <=159 (mg/dL) Final Non-HDL Cholesterol Referenc e Range (mg/dL):
<100 Target level for high risk ASCVD patient
<130 Optimal for general population
130-159 Near optimal for general population
160-189 Borderline High
190-219 High
>=220 Very High LDL, (calculated) 01/18/2024 10:26:00 69 <= 129 (mg/dL) Final LDL Cholesterol Reference Ra nges (mg/dL):
<70 Target level for high risk ASCVD patient
<100 Optimal for general population
100-129 Near optimal for general population
130-159 Borderline high
160-189 High
>=190 Very high Performing Location [facility] [place] - [address] [facility] [address]
--- OUTSIDE RECORDS SUMMARY | 2024-03-01 06:31 | External Medical Summary ---
Author Name Unknown Address Unknown Organization K0G:[facility] [place] [address] - [address] [place] [address] Laboratory Report Ordering Provider Test Date Status GUERRERO CHAUHAN 01/18/2024 10:26:00 Final Observation Date Value Abnormality Reference (Units ) Status WBC, Total 01/18/2024 10:26:00 3.52 Below low normal 4. 00-10.80 (K/uL) Final RBC 01/18/2024 10:26:00 2.99 4.50-5.25 (M/uL) Final Hemoglobin 01/18/2024 10:26:00 10.4 Below low normal 14 .0-16.8 (g/dL) Final HCT 01/18/2024 10:26:00 32.4 Below low normal 40. 0-48.4 (%) Final MCV 01/18/2024 10:26:00 108.4 82.0-99.5 (fL) Final MCH 01/18/2024 10:26:00 34.8 27.0-34.0 (pg) Final MCHC 01/18/2024 10:26:00 32.1 32.0-36.0 (g/dL) Final RDW 01/18/2024 10:26:00 15.8 11.5-15.5 (%) Final Platelets 01/18/2024 10:26:00 131 Below low normal 140 -400 (K/uL) Final MPV 01/18/2024 10:26:00 10.1 6.6-11.1 ( fL) Final Performing Location [facility] [place] 57-[address] 0 - [address] [place] [address]
--- OUTSIDE RECORDS SUMMARY | 2024-03-01 06:31 | External Medical Summary | Summary of Care ---
Author Name Unknown Organization [facility] Address [address] [place] [address] Phone [phone] Care Team Providers Care Bunghole Borer Name Role Phone Michael Hinton MD Primary Care Provider [phone] Reason for Visit * Reason Comments [facility]: Maintenance Encounter Details Date Type Department Care Team (Late st Contact Info) Description 01/15/2024 12:30 PM EDT [facility] Visit [facility], [facility] [address] [place] [address] Peggy De, RN [address] [place] [address] Allergies Active Allergy Reactions Criticality Noted Date Comments Fabiano Inhibitors Cough 06/09/2017 Carbidopa W-Levodopa 03/17/2021 Constipation Nsaids Rash 05/17/2018 Contraindicated per investigator fraud documented as of this encounter (statuses as [...] Last Assessment & Plan: Followed closely by [facility] hematology. 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 03/21/2018 Last Assessment [...] mRNA, LNP-s, No Pre serve, 2-Dose Series ([employer]N [employer]) 11/03/2021,12/19/2020,11/28/2020 Covid-19 Ad26, Single Dose (Soy/J&J) 12/19/2020,11/28/2020 [...] Sign Reading Time Taken Comments Blood Pressure 104/62 01/15/2024 12:06 PM EDT Pulse 65 01/15/2024 12:06 PM EDT Temperature 36 C (96.8 F) 01/15/2024 12:06 PM EDT Respiratory Rate 18 01/15/2024 12:06 PM EDT Oxygen Saturation 98% 01/15/2024 12:06 PM EDT Inhaled Oxygen Concentration - - Weight 76.9 kg (169 lb 9.6 oz) 01/15/2024 12:06 PM EDT Height - - Body Mass Index 28.22 12/01/2022 10:58 AM EST documented in this encounter Progress Notes * Peggy De RN - 01/15/2024 10:50 AM EDT Images from the original note were not included. [facility] [employer] Manager Visit Date: 01/15/2024 Time: 10:50 AM Name: Jesus Jose : 1945 Current Concerns: Pt seen for return RNCM visit Pt started DTP last week on Monday - increased to 40mg Torsemide daily x 3 day Wt today was 169.6 lbs Wt last week was up to 174.6 lbs SOB did improve but pt continues to have increased LE edema. No longer having weeping from LLE but still is of RLE with open wounds noted The redness of RLE has worsened since Monday, per and dtr - dtr took pics on Monday There is no warmth TT to C - discussed with Dr. Briggs - recommends stop keflex, start Doxy, continue with torsemide 40mg daily Physical Exam: BP 104/62 | Pulse 65 | Temp 36 C (96.8 F) | Resp 18 | Wt 76.9 kg (169 lb 9.6 oz) | SpO2 98% | BMI 28.22 kg/m | BSA 1.88 m Pain 5 Physical Exam Constitutional: General: He is not in acute distress. Cardiovascular: Rate and Rhythm: Normal rate and regular rhythm. Pulses: Normal pulses. Heart sounds: Normal heart sounds. Pulmonary: Effort: Pulmonary effort is normal. Breath sounds: Normal breath sounds. Abdominal: General: Bowel sounds are normal. Palpations: Abdomen is soft. Musculoskeletal: Right lower leg: Edema (+2) present. Left lower leg: Edema (+1) present. Skin: General: Skin is warm and dry. Findings: Erythema (RLE) present. Neurological: Mental Status: He is alert and oriented to person, place, and time. Problems/Symptoms: Review of Systems Constitutional: Negative. HENT: Positive for hearing loss. Eyes: Negative. Respiratory: Positive for shortness of breath (MUSTAFA - at baseline). Cardiovascular: Positive for leg swelling. Gastrointestinal: Negative. Genitourinary: Negative. Musculoskeletal: Positive for arthralgias and gait problem. Skin: Positive for wound (RLE - see pics). Psychiatric/Behavioral: Negative. Forgetful Medication Reconciliation: (See medication list) Does patient take medications as ordered: Yes Patient Well Being: PHQ2/9: No questionnaires available. No change in living situation Denies falls [facility]-10 Completed this Visit: No. Routine visit and No falls since last visit Advanced Care Planning: No documentation, acp on file. Reinforcement/Education: Reviewed HF symptom monitoring: -Weigh self [...] anemia - per Dr. Mcclellan/[place] Chun of [facility] heme/onc O2 2lnc [facility] - [phone], wear at hs and during day in recliner (naps frequently) Fall precautions-use walker at all time Elevate bilateral LE when sitting in recliner Tubigrip to LE's daily Low Na diet, High protein, low sugar diet Stop Keflex and start Doxy x 7 days Increase torsemide to 40mg daily routinely Home Interventions Provided: Home Intervention: Other; eval Consulted PCP/Specialist Reinforced current Plan of Care, including self-management and medication regimen Patient's 'Red Flags': Wt gain of 3 lbs in 24 hrs or 5 lbs in one week Increased edema Increased MUSTAFA Patient Needs to Remember: Call [facility] at with any new or worsening health concerns or problems, red flag symptoms. Referrals Needed: Other none Follow Up: Is there cellular connectivity/connectivity in the home? Yes Does the patient have internet in the home? Yes Patient encouraged to call the intake phone number for all urgent but not emergent issues. Is the patient new to [facility] within the last 30 days? No, Assess appropriateness for upcoming telehealth visits. Cancel telehealth visits & schedule home visit with care steamboat pilot(s)as indicated. Provider is in agreement with Plan of Care: Yes Scheduled to follow up with patient in 48 and 72 hrs - has provider visit next week. Peggy De RN 01/15/2024 10:50 AM documented in this encounter Plan of Treatment Upcoming Encounters Date Type Department Care Team (Late st Contact Info) Description 01/17/2024 1:00 PM EDT Scheduled Telephone [facility], [facility] 132 [facility] [place] [address] Coordinator, [address] [place] [address] 01/18/2024 9:20 AM EDT Laboratory Lab Mobile [facility] [address] [place] [address] [facility] [facility] Mobile Home Draw [address] [place] [address] 01/18/2024 11:00 AM EDT Scheduled Telephone [facility], [facility] 132 [facility] [place] [address] Coordinator, [address] [place] [address] 01/24/2024 2:30 PM EDT [facility]medicine [facility] [place], [facility] 132 [facility] [place] [address] Berny Power PA-C 132 [facility] [place] [address] Meri Mae, [facility] Mica Washer Gluer [address] [place] [address] 02/01/2024 9:20 AM EDT Laboratory Lab Mobile Ph[facility] [address] [place] [address] [facility] Mobile [facility] Draw [address] [place] [address] 02/12/2024 5:30 PM EDT Home Visit [facility] [address] [place] [address] Peggy De RN [address] [place] [address] 02/15/2024 9:20 AM EDT Laboratory Lab Mobile Phlebotomy [facility] [address] [place] [address] [facility] Mobile Home Draw [address] [place] [address] 02/26/2024 12:30 PM EDT Nurse Only Ancillary [facility] [address] [place] [address] [facility], Nurse Annual Wellness [facility] [address] [place] [address] 02/29/2024 9:20 AM EDT Laboratory Lab Mobile Phlebotomy [facility] [address] [place] [address] [facility] Mobile Home Draw [address] [place] [address] 03/11/2024 3:15 PM EDT Office Visit Urology, [facility] [address] [place] [address] Kalpesh Funes MD [address] [address] [place] [address] 03/14/2024 9:20 AM EDT Laboratory Lab Mobile Phlebotomy [facility] [address] [place] [address] [facility] Mobile Home Draw [address] [place] [address] 03/22/2024 3:00 PM EDT Office Visit Nephrology, Melissa La [address] [facility] [place] [address] ZemaitisNataly PA-C [address] [facility] [place] [address] 03/28/2024 8:00 AM EDT Laboratory Lab Mobile Phlebotomy [facility] [address] [place] [address] [facility], [facility] Mobile Home Draw [address] [place] [address] 04/11/2024 8:00 AM EDT Laboratory Lab Mobile Phlebotomy [facility] [address] [place] [address] [facility], [facility] Mobile Home Draw [address] [place] [address] 04/25/2024 8:00 AM EDT Laboratory Lab Mobile Phlebotomy [facility] [address] [place] [address] [facility], [facility] Mobile Home Draw [address] [place] [address] 05/09/2024 8:00 AM EDT Laboratory Lab Mobile Phlebotomy [facility] [address] [place] [address] [facility], [facility] Mobile Home Draw [address] [place] [address] 05/23/2024 8:00 AM EDT Laboratory Lab Mobile Phlebotomy [facility] [address] [place] [address] [facility], [facility] Mobile Home Draw [address] [place] [address] 06/06/2024 8:00 AM EDT Laboratory Lab Mobile Phlebotomy [facility] [address] [place] [address] [facility], [facility] Mobile Home Draw [address] [place] [address] 06/20/2024 8:00 AM EDT Laboratory Lab Mobile Phlebotomy [facility] [address] [place] [address] [facility], [facility] Mobile Home Draw [address] [place] [address] 07/04/2024 8:00 AM EDT Laboratory Lab Mobile Phlebotomy [facility] [address] [place] [address] [facility], [facility] Mobile Home Draw [address] [place] [address] 07/18/2024 8:00 AM EDT Laboratory Lab Mobile Ph[facility]omy [facility] [address] [place] [address] [facility], [facility] Mobile Home Draw [address] [place] [address] 08/01/2024 8:00 AM EDT Laboratory Lab Mobile Phlebotomy [facility] [address] [place] [address] Gm, [facility] Mobile Home Draw [address] [place] [address] 08/15/2024 8:00 AM EDT Laboratory Lab Mobile Phlebotomy [facility] [address] [place] [address] [facility], [facility] Mobile Home Draw [address] [place] [address] 08/29/2024 8:00 AM EST Laboratory Lab Mobile Phlebotomy [facility] [address] [place] [address] [facility], [facility] Mobile Home Draw [address] [place] [address] 09/12/2024 8:00 AM EST Laboratory Lab Mobile Phlebotomy [facility] [address] [place] [address] [facility] Mobile Home Draw [address] [place] [address] 09/26/2024 8:00 AM EST Laboratory Lab Mobile Phlebotomy [facility] [address] [place] [address] [facility] Mobile Home Draw [address] [place] [address] Health Maintenance Due Date Last Done Comments [...] 023, 03/08/2019, 04/09/2014 CKD PHOS USE SMARTSET 55528 12/07/202411/23, 12/26/2022, 06/21/2021 CKD HGB USE SMARTSET 87877 01/03/202501/03, 01/04/2024, 12/21/2023, Additional history exists COLONOSCOPY-EVERY [...] this encounter Medical Devices Implanted Type Area Repairer Controller Tester Device Identifier Shelf Expiration Date Model / Serial / Lot Lens Intraoc 22.5 - [id number] - [id number] Implanted:Qty: 1 on 05/22/2018 by Jasbir Maurer MD at OR [facility] Right: Eye [employer]OM[employer] 11/22/2022 [id number] / [id number] / [id number] Lens Intraoc 21.0 - [id number] - [id number] Implanted:Qty: 1 on 06/05/2018 by Jasbir Maurer MD at OR [facility] Left: Eye BAUSCH [employer] LOMB 12/20/2022 [id number] / [id number] / documented as of this encounter Advance [...] Care Power of Attor mayela Care Teams Bunghole Borer Relationship Specialty Start Date End Date Michael Hinton MD [address] [place] [address] PCP - General Family Medicine 08/07/17 documented as of this encounter
--- OUTSIDE RECORDS SUMMARY | 2024-03-01 06:32 | External Medical Summary | Summary of Care ---
Author Name Unknown Organization [facility] Address [address] [place] [address] Phone [phone] Care Team Providers Care Respiratory Therapy Aide Name Role Phone Michael Hinton MD Primary Care Provider [phone] Reason for Visit * Reason Onset Date Comments Appointment 01/12/2024 Encounter Details Date Type Department Care Team (Late st Contact Info) Description 01/12/2024 Telephone [facility], [place] [address] [place] [id number] Services, Scheduling [address] [place] [address] Appointment (//) Allergies Active Allergy Reactions Criticality Noted Date Comments Fabiano Inhibitors Cough 06/09/2017 Carbidopa W-Levodopa 03/17/2021 Constipation Nsaids Rash 05/17/2018 Contraindicated per sales rep documented as of this encounter (statuses as of 01/12/2024) Medications Medication Sig Dispensed Refills Start Date [...] mitral valve regurgitation,Coron daniel artery disease involving tonto apache coronary artery of tonto apache heart without angina pectoris,Paroxysmal atrial fibrillation (HCC),Stage [...] as of this encounter (statuses as of 01/12/2024) Active Problems Problem Noted Date Diagnosed Date [...] knees 03/21/2018 Coronary artery disease invo lving tonto apache [...] as of this encounter (statuses as of 01/12/2024) Resolved Problems Problem Noted Date Diagnosed Date [...] law[place]. 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y [...] as of this encounter (statuses as of 01/12/2024) Immunizations Name Administration Dates Next Due COVID-19 mRNA, LNP-s, No Pre serve, 2-Dose Series (Pfizer) 11/03/2021,12/19/2020,11/28/2020 Covid-19 Ad26, Single Dose (Clearstream.TV/J&J) 12/19/2020,11/28/2020 DTaP Dipth/Tet/Acell Pertussis (Infanrix), Peds 10/24/2019 [...] encounter Miscellaneous Notes * Telephone Encounter - Edward Bolton OSA - 01/12/2024 12:27 PM EDT Call to spouse and she wants to leave rncm appt in place for Monday documented in this encounter Plan of Treatment Upcoming Encounters Date Type Department Care Team (Late st Contact Info) Description 01/13/2024 9:30 AM EDT Scheduled Telephone [facility], [facility] [address] [place] [address] [facility], Nurse [address] [place] [address] 01/14/2024 9:30 AM EDT Scheduled Telephone [facility], [facility] [address] [place] [address] [facility] Nurse [address] [place] [address] 01/15/2024 12:30 PM EDT Home Visit [facility], [facility] [address] [place] [address] Peggy De RN 132 [facility] [place] [address] 01/18/2024 9:20 AM EDT Laboratory Lab Mobile Phlebotomy [facility] [place] [place] [address] [place] [address] [facility], [facility] Mobile Home Draw [address] [place] [address] 01/24/2024 2:30 PM EDT Telemedicine [facility] [place], [facility] [address] [place] [address] Berny Power PA-C [address] [place] [address] Meri Mae, [facility] Production Team Member [address] [place] [address] 02/01/2024 9:20 AM EDT Laboratory Lab Mobile Phlebotomy [facility] [place] [place] [address] [place] [address] [facility], [facility] Mobile Home Draw [address] [place] [address] 02/15/2024 9:20 AM EDT Laboratory Lab Mobile Phlebotomy [facility] [place] [place] [address] [place] [address] [facility], [facility] Mobile Home Draw [address] [place] [address] 02/26/2024 12:30 PM EDT Nurse Only Ancillary [facility] [address] [place] [address] [facility], Nurse [facility] Wellness [facility] [address] [place] [address] 02/29/2024 9:20 AM EDT Laboratory Lab Mobile Phlebotomy [facility] [place] [place] [address] [place] [address] [facility], [facility] Mobile Home Draw [address] [place] [address] 03/11/2024 3:15 PM EDT Office Visit Urology, [facility] [address] [place] [address] Kalpesh Funes MD [address] [place] [address] 03/14/2024 9:20 AM EDT Laboratory Lab Mobile Phlebotomy [facility] [place] [place] [address] [place] [address] [facility], [facility] Mobile Home Draw [address] [place] [address] 03/22/2024 3:00 PM EDT Office Visit Nephrology, [facility] [address] [place] [address] ZeNataly bailey PA-C [address] [place] [address] 03/28/2024 8:00 AM EDT Laboratory Lab Mobile Phlebotomy [facility] [place] [place] [address] [place] [address] [facility], [facility] Mobile Home Draw [address] [place] [address] 04/11/2024 8:00 AM EDT Laboratory Lab Mobile Phlebotomy [facility] [place] [place] [address] [place] [address] G[facility], [facility] Mobile Home Draw [address] [place] [address] 04/25/2024 8:00 AM EDT Laboratory Lab Mobile Phlebotomy [facility] [place] [place] [address] [place] [address] [facility], [facility] Mobile Home Draw [address] [place] [address] 05/09/2024 8:00 AM EDT Laboratory Lab Mobile Phlebotomy [facility] [place] [place] [address] [place] [address] [facility], [facility] Mobile Home Draw [address] [place] [address] 05/23/2024 8:00 AM EDT Laboratory Lab Mobile Phlebotomy [facility] [address] [place] [address] [facility], [facility] Mobile Home Draw [address] [place] [address] 06/06/2024 8:00 AM EDT Laboratory Lab Mobile Phlebotomy [facility] [address] [place] [address] [facility], [facility] Mobile Home Draw [address] [place] [address] 06/20/2024 8:00 AM EDT Laboratory Lab Mobile Phlebotomy [facility] [address] [place] [address] [facility], [facility] Mobile Home Draw [address] [place] [address] 07/04/2024 8:00 AM EDT Laboratory Lab Mobile Phlebotomy [facility] [address] [place] [address] [facility], [facility] Mobile Home Draw [address] [place] [address] 07/18/2024 8:00 AM EDT Laboratory Lab Mobile Phlebotomy [facility] [address] [place] [address] Gmc, [facility] Mobile Home Draw [address] [place] [address] 08/01/2024 8:00 AM EDT Laboratory Lab Mobile Phlebotomy [facility] [address] [place] [address] [facility]mc, [facility] Mobile Home Draw [address] [place] [address] 08/15/2024 8:00 AM EDT Laboratory Lab Mobile Phlebotomy [facility] [address] [place] [address] [facility], [facility] Mobile Home Draw [address] [place] [address] 08/29/2024 8:00 AM EST Laboratory Lab Mobile Phlebotomy [facility] [place] [place] [address] [place] [address] Gm, [facility] Mobile Home Draw [address] [place] [address] 09/12/2024 8:00 AM EST Laboratory Lab Mobile Phlebotomy [facility] [place] [place] [address] [place] [address] Gm, [facility] Mobile Home Draw [address] [place] [address] 09/26/2024 8:00 AM EST Laboratory Lab Mobile Phlebotomy [facility] [place] [place] [address] [place] [address] [facility], [facility] Mobile Home Draw [address] [place] [address] Health Maintenance Due Date Last Done Comments [...] 023, 03/08/2019, 04/09/2014 CKD PHOS USE SMARTSET 87308 12/07/202411/23, 12/26/2022, 06/21/2021 CKD HGB USE SMARTSET 59137 01/03/202501/03, 01/04/2024, 12/21/2023, Additional history exists COLONOSCOPY-EVERY [...] this encounter Medical Devices Implanted Type Area Communications Controller Device Identifier Shelf Expiration Date Model / Serial / Lot Lens Intraoc 22.5 - [id number] - [id number] Implanted:Qty: 1 on 05/22/2018 by Jasbir Maurer MD at OR [facility] Right: Eye [employer] 11/22/2022 [id number] / [id number] / [id number] Lens Intraoc 21.0 - [id number] - [id number] Implanted:Qty: 1 on 06/05/2018 by Jasbir Maurer MD at OR [facility] Left: Eye BAUSCH [employer] LOMB 12/20/2022 [id number] / [id number] / documented as of this encounter Advance [...] Care Power of Attor mayela Care Teams Respiratory Therapy Aide Relationship Specialty Start Date End Date Michael Hinton MD [address] [place] [address] PCP - General Family Medicine 08/07/17 documented as of this encounter
--- OUTSIDE RECORDS SUMMARY | 2024-03-01 06:32 | External Medical Summary | Summary of Care ---
Author Name Unknown Organization [facility] Address [address] [facility] [place] [address] Phone [phone] Care Team Providers Care Wrapper Layer Name Role Phone Michael Hinton MD Primary Care Provider [phone] Reason for Visit * Reason Onset Date Comments [facility]: Maintenance 01/14/2024 Encounter Details Date Type Department Care Team (Late st Contact Info) Description 01/14/2024 9:30 AM EDT Scheduled Telephone [facility] [address] [facility] [place] [address] [facility], Nurse [facility] [address] [facility] [place] [address] Allergies Active Allergy Reactions Criticality Noted Date Comments Fabiano Inhibitors Cough 06/09/2017 Carbidopa W-Levodopa 03/17/2021 Constipation Nsaids Rash 05/17/2018 Contraindicated per airborne sensor specialist documented as of this encounter (statuses as of 01/14/2024) Medications Medication Sig Dispensed Refills Start Date [...] mitral valve regurgitation,Coron daniel artery disease involving de[place] coronary artery of deering heart without angina pectoris,Paroxysmal atrial fibrillation (HCC),Stage [...] as of this encounter (statuses as of 01/14/2024) Active Problems Problem Noted Date Diagnosed Date [...] Last Assessment & Plan: Followed closely by [facility] hematology. 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y [...] as of this encounter (statuses as of 01/14/2024) Immunizations Name Administration Dates Next Due COVID-19 [...] encounter Miscellaneous Notes * Telephone Encounter - Zacarias Valdovinos, KARLA - 01/14/2024 1:14 PM EDT Patient is scheduled for a f/u PC today. DTP started on 01/11. Patient's weight is down about 2 1/2 lbs overnight to 168.8 lbs. No answer. LMOM to return call to [facility]. Patient has a [facility] HV tomorrow, 01/14. documented in this encounter Plan of Treatment Upcoming Encounters Date Type Department Care Team (Late st Contact Info) Description 01/15/2024 12:30 PM EDT [facility] Visit [facility] [address] [address] Peggy De RN [address] [address] 01/18/2024 9:20 AM EDT Laboratory Lab Mobile Phlebotomy [facility] [address] [place] [address] [facility] Mobile Home Draw [address] [place] [address] 01/24/2024 2:30 PM EDT Telemedicine [facility] [address] [address] Berny Power PA-C [address] [address] Meri Mae, Community [facility] Fruit Receiver [address] [place] [address] 02/01/2024 9:20 AM EDT Laboratory Lab Mobile Phlebotomy [facility] [address] [place] [address] [facility] [address] [place] [address] 02/15/2024 9:20 AM EDT Laboratory Lab Mobile Phlebotomy [facility] [address] [place] [address] [facility] [address] [place] [address] 02/26/2024 12:30 PM EDT Nurse Only Ancillary [facility] [address] [place] [address] [facility], Nurse [facility] [address] [place] [address] 02/29/2024 9:20 AM EDT Laboratory Lab Mobile Phlebotomy [facility] [address] [place] [address] [facility] Mobile Home Draw [address] [place] [address] 03/11/2024 3:15 PM EDT Office Visit Urology, [facility] [address] [place] [address] Kalpesh Funes MD [address] [address] [place] [address] 03/14/2024 9:20 AM EDT Laboratory Lab Mobile Phlebotomy [facility] [address] [place] [address] [facility], [facility] Mobile Home Draw [address] [place] [address] 03/22/2024 3:00 PM EDT Office Visit Nephrology, [facility] [address] [facility] [place] [address] Zemaitis, Nataly Christine PA-C [address] [facility] [place] [address] 03/28/2024 8:00 AM EDT Laboratory Lab Mobile Phlebotomy [facility] [address] [place] [address] [facility], [facility] Mobile Home Draw [address] [place] [address] 04/11/2024 8:00 AM EDT Laboratory Lab Mobile Phlebotomy [facility] [address] [place] [address] [facility] [address] [place] [address] 04/25/2024 8:00 AM EDT Laboratory Lab Mobile Phlebotomy [facility] [address] [place] [address] [facility], [facility] Mobile Home Draw [address] [place] [address] 05/09/2024 8:00 AM EDT Laboratory Lab Mobile Phlebotomy [facility] [address] [place] [address] [facility], [facility] Mobile Home Draw [address] [place] [address] 05/23/2024 8:00 AM EDT Laboratory Lab Mobile Phlebotomy [facility] [address] [place] [address] [facility], [facility] Mobile Home Draw [address] [place] [address] 06/06/2024 8:00 AM EDT Laboratory Lab Mobile Phlebotomy [facility] [address] [place] [address] [facility], [facility] Mobile Home Draw [address] [place] [address] 06/20/2024 8:00 AM EDT Laboratory Lab Mobile Phlebotomy [facility] [address] [place] [address] [facility], [facility] Mobile Home Draw [address] [place] [address] 07/04/2024 8:00 AM EDT Laboratory Lab Mobile Phlebotomy [facility] [address] [place] [address] [facility], [facility] Mobile Home Draw [address] [place] [address] 07/18/2024 8:00 AM EDT Laboratory Lab Mobile Phlebotomy [facility] [address] [place] [address] [facility], [facility] Draw [address] [place] [address] 08/01/2024 8:00 AM EDT Laboratory Lab Mobile Phlebotomy [facility] [address] [place] [address] [facility], [facility] Mobile Home Draw [address] [place] [address] 08/15/2024 8:00 AM EDT Laboratory Lab Mobile Phlebotomy [facility] [address] [place] [address] [facility], [facility] Mobile Home Draw [address] [place] [address] 08/29/2024 8:00 AM EST Laboratory Lab Mobile Phlebotomy [facility] [address] [place] [address] [facility], [facility] Mobile Home Draw [address] [place] [address] 09/12/2024 8:00 AM EST Laboratory Lab Mobile Phlebotomy [facility] [address] [place] [address] [facility], [facility] Mobile Home Draw [address] [place] [address] 09/26/2024 8:00 AM EST Laboratory Lab Mobile Phlebotomy [facility] [address] [place] [address] [facility] Mobile Home Draw [address] [place] [address] Health Maintenance Due Date Last Done Comments [...] 023, 03/08/2019, 04/09/2014 CKD PHOS USE SMARTSET 55252 12/07/202411/23, 12/26/2022, 06/21/2021 CKD HGB USE SMARTSET 66960 01/03/202501/03, 01/04/2024, 12/21/2023, Additional history exists COLONOSCOPY-EVERY [...] this encounter Medical Devices Implanted Type Area Shipyard Helper Device Identifier Shelf Expiration Date Model / Serial / Lot Lens Intraoc 22.5 - [id number] - [id number] Implanted:Qty: 1 on 05/22/2018 by Jasbir Maurer MD at OR [facility] Right: Eye [employer] 11/22/2022 [id number] / [id number] Lens Intraoc 21.0 - [id number] - [id number] Implanted:Qty: 1 on 06/05/2018 by Jasbir Maurer MD at OR [facility] Left: Eye 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
--- OUTSIDE RECORDS SUMMARY | 2024-03-01 06:32 | External Medical Summary | Summary of Care ---
Author Name Unknown Organization [facility] [address] [facility] [address] Phone [phone] Care Team Providers Care Pneumatic Tool Repairer Name Role Phone Michael Hinton MD Primary Care Provider [phone] Reason for Visit * Reason Onset Date Comments [facility]: Acute 01/12/2024 Encounter Details Date Type Department Care Team (Late st Contact Info) Description 01/12/2024 Telephone [facility], [facility] 132 [facility] [place] [address] [facility], Nurse [facility] [address] [facility] [place] [address] [facility]: Acute Allergies Active Allergy Reactions Criticality Noted Date Comments Fabiano Inhibitors Cough 06/09/2017 Carbidopa W-Levodopa 03/17/2021 Constipation Nsaids Rash 05/17/2018 Contraindicated per venereal disease investigator documented as of this encounter (statuses as [...] mitral valve regurgitation,Coron daniel artery disease involving [place] coronary artery of [place] heart without angina pectoris,Paroxysmal atrial fibrillation (HCC),Stage [...] to warrant surgery. Also does not want eke for a week post-op since he had bad experience in the past. Aware PCP would like him to have cardiology pre-op clearance prior to surgery. HTN, goal below 130/80 07/26/2018 Type 2 diabetes mellitus wit h hemoglobin A1c goal of less than 8.0% 07/26/2018 Overview: Last hgba1c 5.5 in 02/2022 -continue metformin Primary osteoarthritis of both knees 03/21/2018 Coronary artery disease invo lving [place] coronary artery of [place] heart without angina pectoris 03/21/2018 Last Assessment [...] scanned document from 11/13/[address] bains [facility]. Coronary [...] Telephone Encounter - Michael Briggs DO - 01/12/2024 11:28 AM EDT [facility] Phone Encounter Reviewed phone message. I agree w/ the advice offered via phone by our telephonic nursing team. Please let me know via encounter or [employer] message if there is any change Thank you in advance, I appreciate it. DO [facility] 01/12/2024 * Telephone Encounter - Esperanza Plummer RN - 01/12/2024 10:32 AM EDT Images from the original note were not included. 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 HPI: Jesus Jose is a 78 year old male whose spouse is calling [facility] to report that Scotty weight has been creeping up recently. BLE's edema noted, R>L, right has blisters andare seeping. Has right groin pain that radiates down to his leg, 8/10, does wear compressions socksbut are painful to wear them and they become saturated. No fever/chills but always cold, +SOB with exertion, + wheezing, wears O2 at HS, pulse ox 87% on RA, instructed to wear his O2, HR-65. Blood sugar 173 this AM, no issues with urinating, LBM was last night, SPO2 with O2 is 97%. Takes Keflex 500mg daily for chronic cellulitis, was told he will be on this lifetime per ID. instructed to start DTP today, double Torsemide for 3 days, keep legs elevated at all times, tylenol for leg pain, compression stockings daily, monitor fluid/sodium intake Nursing Assessment: Patient's chief complaint for this call: Edema Shortness of breath Integumentary Pain Has pain Pain level: 8 Location: RLE Quality of Pain: aching Does the pain radiate: No Baseline Assessment Able to performing ADLs at baseline (walking, daily tasks, etc.): Yes Chief Complaint is related to a chronic condition: Unknown Patient prescribed oxygen? Yes, 2L/min at HS Patient has been ordered DME equipment (assistive devices, respiratory equipment, etc.): Yes Describe DME devices: inhaler only Patient is using DME device as directed: Yes Medication Reconciliation: Received flu shot this season: Yes Taking medication as ordered: Yes Medications ordered/taking to treat reason for call: No Heart failure symptoms: Unknown COPD exacerbation symptoms: No Reinforcement Education: Routed to care team for recommendations Weekend follow up calls placed Treatment/Plan: Level of call: Non-Acute Recommended treatment plan: Clinical advice given over the phone Call back instructions provided to patient. 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 [employer] [facility] documented in this encounter Plan of Treatment Upcoming Encounters Date Type Department Care Team (Late st Contact Info) Description 01/13/2024 9:30 AM EDT Scheduled Telephone [facility], [facility] [address] [address] [facility], Nurse [place] [address] [place] [address] 01/14/2024 9:30 AM EDT Scheduled Telephone [facility], [facility] [address] [address] [facility], Nurse [address] [place] [address] [address] [place] [address] 01/15/2024 12:30 PM EDT Home Visit [facility], [facility] [address] [place] [address] Peggy De RN [address] [place] [address] 01/18/2024 9:20 AM EDT Laboratory Lab Mobile Phlebotomy [facility] [address] [place] [address] [facility], [facility] Mobile Home Draw [address] [place] [address] 01/24/2024 2:30 PM EDT Telemedicine [facility], [facility] [address] [place] [address] Berny Power PA-C [address] [place] [address] Meri Mae, [facility] Machine Packager [address] [place] [address] 02/01/2024 9:20 AM EDT Laboratory Lab Mobile Phlebotomy [facility] [address] [place] [address] [facility], [facility] Mobile Home Draw [address] [place] [address] 02/15/2024 9:20 AM EDT Laboratory Lab Mobile Phlebotomy [facility] [address] [place] [address] [facility], [facility] Mobile Home Draw [address] [place] [address] 02/26/2024 12:30 PM EDT Nurse Only Ancillary [facility] [address] [place] [address] [facility] [address] [place] [address] 02/29/2024 9:20 AM EDT Laboratory Lab Mobile Phlebotomy [facility] [address] [place] [address] [facility], [facility] Mobile Home Draw [address] [place] [address] 03/11/2024 3:15 PM EDT Office Visit Urology, [facility] [address] [place] [address] Kalpesh Funes MD [address] [address] 03/14/2024 9:20 AM EDT Laboratory Lab Mobile Phlebotomy [facility] [address] [place] [address] [facility], [facility] Mobile Home Draw [address] [place] [address] 03/22/2024 3:00 PM EDT Office Visit Nephrology, [facility] [address] [place] [address] Nataly Stone PA-C [address] [place] [address] 03/28/2024 8:00 AM EDT Laboratory Lab Mobile Phlebotomy [facility] [address] [place] [address] [facility], [facility] Mobile Home Draw [address] [place] [address] 04/11/2024 8:00 AM EDT Laboratory Lab Mobile Phlebotomy [facility] [address] [place] [address] [facility], [facility] Mobile Home Draw [address] [place] [address] 04/25/2024 8:00 AM EDT Laboratory Lab Mobile Phlebotomy [facility] [address] [place] [address] [facility], [facility] Mobile Home Draw [address] [place] [address] 05/09/2024 8:00 AM EDT Laboratory Lab Mobile Phlebotomy [facility] [address] [place] [address] [facility], [facility] Mobile Home Draw [address] [place] [address] 05/23/2024 8:00 AM EDT Laboratory Lab Mobile Phlebotomy [facility] [address] [place] [address] [facility], [facility] Mobile Home Draw [address] [place] [address] 06/06/2024 8:00 AM EDT Laboratory Lab Mobile Phlebotomy [facility] [address] [place] [address] [facility], [facility] Mobile Home Draw [address] [place] [address] 06/20/2024 8:00 AM EDT Laboratory Lab Mobile Phlebotomy [facility] [address] [place] [address] [facility], [facility] Mobile Home Draw [address] [place] [address] 07/04/2024 8:00 AM EDT Laboratory Lab Mobile Phlebotomy [facility] [address] [place] [address] [facility], [facility] Mobile Home Draw [address] [place] [address] 07/18/2024 8:00 AM EDT Laboratory Lab Mobile Phlebotomy [facility] [address] [place] [address] [facility], [facility] Mobile Home Draw [address] [place] [address] 08/01/2024 8:00 AM EDT Laboratory Lab Mobile Phlebotomy [facility] [address] [place] [address] [facility], [facility] Mobile Home Draw [address] [place] [address] 08/15/2024 8:00 AM EDT Laboratory Lab Mobile Phlebotomy [facility] [address] [place] [address] [facility], [facility] Mobile Home Draw [address] [place] [address] 08/29/2024 8:00 AM EST Laboratory Lab Mobile Phlebotomy [facility] [address] [place] [address] [facility], [facility] Mobile Home Draw [address] [place] [address] 09/12/2024 8:00 AM EST Laboratory Lab Mobile Phlebotomy [facility] [address] [place] [address] Gm, [facility] Mobile Home Draw [address] [place] [address] 09/26/2024 8:00 AM EST Laboratory Lab Mobile Phlebotomy [facility] [address] [place] [address] [facility], [facility] Mobile Home Draw [address] [place] [address] Health Maintenance Due Date Last Done Comments [...] 023, 03/08/2019, 04/09/2014 CKD PHOS USE SMARTSET 24889 12/07/202411/23, 12/26/2022, 06/21/2021 CKD HGB USE SMARTSET 82698 01/03/202501/03, 01/04/2024, 12/21/2023, Additional history exists COLONOSCOPY-EVERY [...] this encounter Medical Devices Implanted Type Area Software Design Engineer Device Identifier Shelf Expiration Date Model / Serial / Lot Lens Intraoc 22.5 - [id number] - [id number] Implanted:Qty: 1 on 05/22/2018 by Jasbir Maurer MD at OR [facility] Right: Eye [employer] 11/22/2022 [id number] / [id number] / [id number] Lens Intraoc 21.0 - [id number] - [id number] Implanted:Qty: 1 on 06/05/2018 by Jasbir Maurer MD at OR [facility] Left: Eye BAUSCH [employer] LOMB 12/20/2022 [id number] / [id number] / documented as of this encounter Advance [...] Agents on File Name Relationship Healthcare Agent [facility] p Communication Ashley Jose Spouse Health Care Power of Attor mayela Care Teams Pneumatic Tool Repairer Relationship Specialty Start Date End Date Michael Hinton MD [address] [place] [address] PCP - General Family Medicine 08/07/17 documented as of this encounter
--- OUTSIDE RECORDS SUMMARY | 2024-03-01 06:32 | External Medical Summary | Summary of Care ---
Author Name Unknown Organization [facility] Address [address] [place] [address] Phone [phone] Care Team Providers Care Shank Paperer Name Role Phone Michael Hinton MD Primary Care Provider [phone] Reason for Visit * Reason Onset Date Comments [facility]: Maintenance 01/13/2024 Encounter Details Date Type Department Care Team (Late st Contact Info) Description 01/13/2024 9:30 AM EDT Scheduled Telephone [facility], [facility] [address] [place] [address] 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,Paroxysmal atrial fibrillation (HCC),Stage [...] as of this encounter (statuses as of 01/13/2024) Active Problems Problem Noted Date Diagnosed Date [...] Regimen: Beta Sheldon Therapy: Metoprolol Succinate (ER) FBAIANO Inhibitor/ARB Therapy: No FABIANO/ARB/ARNI secondary to: cough [...] knees 03/21/2018 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y [...] as of this encounter (statuses as of 01/13/2024) Immunizations Name Administration Dates Next Due COVID-19 [...] encounter Miscellaneous Notes * Telephone Encounter - Katherine Lamar RN - 01/13/2024 11:42 AM EDT Images from the original note were not included. Jesus Jose is scheduled for a follow up call. Jesus's spouse contacted [facility] yesterday with concerns of increasing weight, BLE edema R>L, RLE with weeping blisters. Per note on Keflex 500 mgdaily for chronic cellulitis. Intake instructed to start DTP (double torsemide x 3 days). AMC weights as noted below: Called and spoke to spouse Ashley. States she started the DTP yesterday as directed. States this AM his BP is 130/90 HR is 65, temp 96.5 and SpO2 90% on RA. States he is wearing the O2 most of the time during the day. She is applying compression to BLE, but admits the stockings get wet from the weeping of RLE. We discussed ways to keep them dry, using gauze to areas of weeping and applying fabiano wrap opposed to stocking to easier apply/ remove gauze, and she states she is already doing this. Advised the importance of keeping the skin as clean and dry as possible. She reports that right leg remains more swollen and he reports it is "sore." Does not report S/S of infection. Instructed to help decrease edema, decrease sodium intake- read all labels and avoid high sodium foods, do not add salt to food when eating or when cooking; instructed to elevate legs above the levelof the heart throughout the day, at least 3 times daily for 45 min-1 hour, avoid sitting with legs in dependant position for long periods of time. Apply compression in AM and remove at HS. Instructedto report any signs of infection: Redness, swelling, uncontrolled pain, green/yellow drainage, foulodor or fever. Caregiver verbalizes understanding. Follow up call is scheduled for tomorrow and home visit is scheduled on Monday. Encouraged caregiver to call [facility] with any questions or with any new or worsening symptoms. Katherine Lamar RN, BSN [employer] Mdm Developer [facility] documented in this encounter Plan of Treatment Upcoming Encounters Date Type Department Care Team (Late st Contact Info) Description 01/14/2024 9:30 AM EDT Scheduled Telephone [facility] [place], [facility] [address] [facility] [place] [address] [facility], Nurse [facility] [address] [facility] [place] [address] 01/15/2024 12:30 PM EDT Home Visit [facility], [facility] [address] [facility] [place] [address] Peggy De RN 132 [facility] [place] [address] 01/18/2024 9:20 AM EDT Laboratory Lab Mobile Phlebotomy [facility] [address] [place] [address] [facility] [facility] Mobile Home Draw [place] [address] 01/24/2024 2:30 PM EDT Telemedicine [facility] [place], [facility] [address] [facility] [place] [address] Berny Power PA-C [address] [place] [address] Meri Mae, [facility] [employer] Delivery Checker [address] [place] [address] 02/01/2024 9:20 AM EDT Laboratory Lab Mobile Phlebotomy [facility] [address] [place] [address] [facility] Mobile [facility] Draw [address] [place] [address] 02/15/2024 9:20 AM EDT Laboratory Lab Mobile Phlebotomy [facility] [address] [place] [address] [facility] Draw [address] [place] [address] 02/26/2024 12:30 PM EDT Nurse Only Ancillary [address] [address] [facility], Nurse Annual Wellness [facility] [address] [place] [address] 02/29/2024 9:20 AM EDT Laboratory Lab Mobile Phlebotomy [facility] [address] [place] [address] [facility] Mobile Home Draw [address] [place] [address] 03/11/2024 3:15 PM EDT Office Visit Urology, [facility] [address] [place] [address] Kalpesh Funes MD [address] [address] 03/14/2024 9:20 AM EDT Laboratory Lab Mobile Phlebotomy [facility] [address] [place] [address] [facility] Mobile Home Draw [address] [place] [address] 03/22/2024 3:00 PM EDT Office Visit Nephrology, [address] [place] [address] Nataly Stone PA-C [address] [place] [address] 03/28/2024 8:00 AM EDT Laboratory Lab Mobile Phlebotomy [facility] [address] [place] [address] [facility], [facility] Mobile Home Draw [address] [place] [address] 04/11/2024 8:00 AM EDT Laboratory Lab Mobile Phlebotomy [facility] [address] [place] [address] [facility], [facility] Mobile Home Draw [address] [place] [address] 04/25/2024 8:00 AM EDT Laboratory Lab Mobile Phlebotomy [facility] [address] [place] [address] [facility], [facility] Mobile Home Draw [address] [place] [address] 05/09/2024 8:00 AM EDT Laboratory Lab Mobile Phlebotomy [facility] [address] [place] [address] [facility], [facility] Mobile Home Draw [address] [place] [address] 05/23/2024 8:00 AM EDT Laboratory Lab Mobile Phlebotomy [facility] [address] [place] [address] [facility], [facility] Mobile Home Draw [address] [place] [address] 06/06/2024 8:00 AM EDT Laboratory Lab Mobile Phlebotomy [facility] [address] [place] [address] [facility], [facility] Mobile Home Draw [address] [place] [address] 06/20/2024 8:00 AM EDT Laboratory Lab Mobile Phlebotomy [facility] [address] [place] [address] [facility], [facility] Mobile Home Draw [address] [place] [address] 07/04/2024 8:00 AM EDT Laboratory Lab Mobile Phlebotomy [facility] [address] [place] [address] [facility], [facility] Mobile Home Draw [address] [place] [address] 07/18/2024 8:00 AM EDT Laboratory Lab Mobile Phlebotomy [facility] [address] [place] [address] [facility], [facility] Mobile Home Draw [address] [place] [address] 08/01/2024 8:00 AM EDT Laboratory Lab Mobile Phlebotomy [facility] [address] [place] [address] [facility], [facility] Mobile Home Draw [address] [place] [address] 08/15/2024 8:00 AM EDT Laboratory Lab Mobile Phlebotomy [facility] [address] [place] [address] [facility], [facility] Mobile Home Draw [address] [place] [address] 08/29/2024 8:00 AM EST Laboratory Lab Mobile Phlebotomy [facility] [address] [place] [address] [facility], [facility] Mobile Home Draw [address] [place] [address] 09/12/2024 8:00 AM EST Laboratory Lab Mobile Phlebotomy [facility] [address] [place] [address] [facility], [facility] Mobile Home Draw [address] [place] [address] 09/26/2024 8:00 AM EST Laboratory Lab Mobile Phlebotomy [facility] [address] [place] [address] [facility] Mobile Home Draw [address] [place] [address] Health Maintenance Due Date Last Done Comments [...] 023, 03/08/2019, 04/09/2014 CKD PHOS USE SMARTSET 22646 12/07/202411/23, 12/26/2022, 06/21/2021 CKD HGB USE SMARTSET 07842 01/03/202501/03, 01/04/2024, 12/21/2023, Additional history exists COLONOSCOPY-EVERY [...] this encounter Medical Devices Implanted Type Area Assistant Manager Of Operations Device Identifier Shelf Expiration Date Model / Serial / Lot Lens Intraoc 22.5 - [id number] - [id number] Implanted:Qty: 1 on 05/22/2018 by Jasbir Maurer MD at OR [facility] Right: Eye [employer] 11/22/2022 [id number] / [id number] / [id number] Lens Intraoc 21.0 - [id number] - [id number] Implanted:Qty: 1 on 06/05/2018 by Jasbir Maurer MD at OR [facility] Left: Eye [employer] 12/20/2022 [id number] / [id number] / documented as of this encounter Advance [...] Care Power of Attor mayela Care Teams Shank Paperer Relationship Specialty Start Date End Date Michael Hinton MD [address] [place] [address] PCP - General Family Medicine 08/07/17 documented as of this encounter
--- OUTSIDE RECORDS SUMMARY | 2024-03-01 06:33 | External Medical Summary | Summary of Care ---
Author Name Unknown Organization [facility] Address [address] [place] [address] Phone [phone] Care Team Providers Care Deputy City Clerk Name Role Phone Michael Hinton MD Primary Care Provider [phone] Reason for Visit * Reason Onset Date Comments [facility]: Maintenance 01/09/2024 Encounter Details Date Type Department Care Team (Late st Contact Info) Description 01/09/2024 Telephone [facility], [facility] [address] [facility] [place] [address] [facility], Nurse [facility] [address] [facility] [place] [address] [facility]: Maintenance Allergies Active Allergy Reactions Criticality Noted Date Comments Fabiano Inhibitors Cough 06/09/2017 Carbidopa W-Levodopa 03/17/2021 Constipation Nsaids Rash 05/17/2018 Contraindicated per x ray tech documented as of this encounter (statuses as of 01/09/2024) Medications Medication Sig Dispensed Refills Start Date [...] mitral valve regurgitation,Coron daniel artery disease involving [place] coronary artery of [place] heart without angina pectoris,Paroxysmal atrial fibrillation (HCC),Stage [...] as of this encounter (statuses as of 01/09/2024) Active Problems Problem Noted Date Diagnosed Date [...] Last Assessment & Plan: Followed closely by [facility] hematology. No identified cause [...] knees 03/21/2018 Coronary artery disease invo lving [place] coronary artery of [place] heart without angina pectoris 03/21/2018 Last Assessment [...] as of this encounter (statuses as of 01/09/2024) Resolved Problems Problem Noted Date Diagnosed Date [...] as of this encounter (statuses as of 01/09/2024) Immunizations Name Administration Dates Next Due COVID-19 [...] encounter Miscellaneous Notes * Telephone Encounter - Jenifer Hernandez LPN - 01/09/2024 9:28 AM EDT Images from the original note were not included. [facility] Remote Patient Monitoring Unable to contact patient: Trigger type: Abnormal reading(s): Device(s) Triggered: AMC (Advanced Monitored Caregiving): Scale: Trigger weight: 174.6 lbs; weight increased 6 lbs in 2 day(s) Left message asking for return call documented in this encounter Plan of Treatment Upcoming Encounters Date Type Department Care Team (Late st Contact Info) Description 01/15/2024 12:30 PM EDT Home Visit ising at [facility] [address] [place] [address] Peggy De RN [address] [place] [address] 01/18/2024 9:20 AM EDT Laboratory Lab Mobile Phlebotomy [facility] [address] [place] [address] [facility] Mobile Home Draw [address] [facility] [place] [address] 01/24/2024 2:30 PM EDT Telemedicine ising at [facility] [address] [place] [address] Berny Power PA-C [address] [place] [address] Meri Mae, [facility] Custodial Manager [address] [place] [address] 02/01/2024 9:20 AM EDT Laboratory Lab Mobile Phlebotomy [facility] [address] [place] [address] [facility] Mobile Home Draw [address] [place] [address] 02/15/2024 9:20 AM EDT Laboratory Lab Mobile Phlebotomy [facility] [address] [place] [address] [facility] Mobile Home Draw [address] [place] [address] 02/26/2024 12:30 PM EDT Nurse Only Ancillary [facility] [address] [place] [address] [facility], Nurse Annual Wellness [facility] [address] [place] [address] 02/29/2024 9:20 AM EDT Laboratory Lab Mobile Phlebotomy [facility] [address] [place] [address] [facility] Mobile Home Draw [address] [place] [address] 03/11/2024 3:15 PM EDT Office Visit Urology, [facility] [address] [place] [address] Kalpesh Funes MD [address] [place] [place] [address] [place] [address] 03/14/2024 9:20 AM EDT Laboratory Lab Mobile Phlebotomy [facility] [address] [place] [address] [facility], [facility] Mobile Home Draw [address] [place] [address] 03/22/2024 3:00 PM EDT Office Visit Nephrology, [place] [address] [place] [address] Zemaitis, Nataly Christine PA-C [address] [place] [address] 03/28/2024 8:00 AM EDT Laboratory Lab Mobile Phlebotomy [facility] [address] [place] [address] Gm, [facility] Mobile Home Draw [address] [place] [address] 04/11/2024 8:00 AM EDT Laboratory Lab Mobile Phlebotomy [facility] [address] [place] [address] [facility] Draw [address] [place] [address] 04/25/2024 8:00 AM EDT Laboratory Lab Mobile Phlebotomy [facility] [address] [place] [address] Gm, Gml Mobile Home Draw [address] [place] [address] 05/09/2024 8:00 AM EDT Laboratory Lab Mobile Phlebotomy [facility] [address] [place] [address] Gm, Gml Mobile Home Draw [address] [place] [address] 05/23/2024 8:00 AM EDT Laboratory Lab Mobile Phlebotomy [facility] [address] [place] [address] [facility] Draw [address] [place] [address] 06/06/2024 8:00 AM EDT Laboratory Lab Mobile Phlebot[facility] [address] [place] [address] [facility], [facility] Mobile Home Draw [address] [place] [address] 06/20/2024 8:00 AM EDT Laboratory Lab Mobile Phlebot[facility] [address] [place] [address] [facility], [facility] Mobile Home Draw [address] [place] [address] 07/04/2024 8:00 AM EDT Laboratory Lab Mobile Phlebot[facility] [address] [place] [address] [facility], [facility] Mobile Home Draw [address] [place] [address] 07/18/2024 8:00 AM EDT Laboratory Lab Mobile Phlebot[facility] [address] [place] [address] [facility], [facility] Mobile Home Draw [address] [place] [address] 08/01/2024 8:00 AM EDT Laboratory Lab Mobile Phlebot[facility] [address] [place] [address] [facility], [facility] Mobile Home Draw [address] [place] [address] 08/15/2024 8:00 AM EDT Laboratory Lab Mobile Phlebotomy [facility] [address] [place] [address] [facility], [facility] Mobile Home Draw [address] [place] [address] 08/29/2024 8:00 AM EST Laboratory Lab Mobile Phlebot[facility] [address] [place] [address] [facility], [facility] Mobile Home Draw [address] [place] [address] 09/12/2024 8:00 AM EST Laboratory Lab Mobile Phlebotomy [facility] [address] [place] [address] [facility] Mobile Home Draw [address] [place] [address] 09/26/2024 8:00 AM EST Laboratory Lab Mobile Phlebotomy [facility] [address] [place] [address] [facility] Home Draw [address] [place] [address] Health Maintenance Due Date Last Done Comments [...] 023, 03/08/2019, 04/09/2014 CKD PHOS USE SMARTSET 70551 12/07/202411/23, 12/26/2022, 06/21/2021 CKD HGB USE SMARTSET 66467 01/03/202501/03, 01/04/2024, 12/21/2023, Additional history exists COLONOSCOPY-EVERY [...] this encounter Medical Devices Implanted Type Area Airport Shuttle Driver Device Identifier Shelf Expiration Date Model / Serial / Lot Lens Intraoc 22.5 - [id number] - [id number] Implanted:Qty: 1 on 05/22/2018 by Jasbir Maurer MD at OR [facility] Right: Eye [employer] 11/22/2022 [id number] / [id number] / [id number] Lens Intraoc 21.0 - [id number] - [id number] Implanted:Qty: 1 on 06/05/2018 by Jasbir Maurer MD at OR [facility] Left: Eye [employer]OM[employer] 12/20/2022 [id number] / [id number] / documented as of this encounter Advance [...] Care Power of Attor mayela Care Teams Deputy City Clerk Relationship Specialty Start Date End Date Michael Hinton MD [address] [place] [address] PCP - General Family Medicine 08/07/17 documented as of this encounter
[2024-03-01] MEDS: ACETAMINOPHEN 500 MG TAB PO SCH (08:15)
[2024-03-01] MEDS: VITAMIN B COMPLEX TAB PO SCH (08:15)
[2024-03-01] MEDS: ATORVASTATIN 40 MG TAB PO SCH (08:15)
[2024-03-01] MEDS: ESCITALOPRAM OXALATE 20 MG TAB PO SCH (08:16)
[2024-03-01] MEDS: FINASTERIDE 5 MG TAB PO SCH (08:16)
[2024-03-01] MEDS: METOPROLOL SUCC 25MG EXT REL TAB PO SCH (08:16)
[2024-03-01] MEDS: FLUOCINONIDE 0.05% OINT 15 GM TUBE EXT SCH (08:17)
[2024-03-01] MEDS: PANTOprazole 40 MG TAB PO SCH (08:18)
[2024-03-01] MEDS ORDERED: TORSEMIDE 20 MG TAB PO SCH (09:00)
--- NOTE | 2024-03-01 09:42 | Gastrointestinal Consultation ---
Date of Consultation March 01, 2024 Assessment & Plan (1) Acute GI bleeding: (2) Anemia: (3) Elevated lipase: Plan Patient is a 78 y.o. male admitted with symptomatic, acute blood loss anemia in the setting of chronic anticoagulation use due to history of A Fib. DDX: PUD vs AVM vs other. 1. NPO for now. 2. Push enteroscopy for further evaluation. 3. Continue PPI ggt. 4. If no findings on endoscopy, recommend outpatient follow up with patient's primary GI team for consideration of VCE. Thank you for allowing us to participate in the care of this patient. If you have any questions or concerns, please do not hesitate to contact us. Supervising Physician Co-Signing Physician Notes Agree with HALLIE Roque as above Interviewed and examined patient and agree with above Abd: Soft, NT, ND, +BS Continue current therapy and supportive care Proceed with Push Enteroscopy now History of Present Illness Reason for Consultation: GIB Requesting Physician: Dr. Gibbs Attending Physician: Sonia Dale MD History of Present Illness Patient is a 78 y.o. male with a history of DM, CHF, CKD, CAD s/p CABG, HTN, A Fib, GERD, HUNTER, Parkinson's disease, dementia, and anemia admitted with bright red rectal bleeding and melena. He was admitted to the hospital in September of 2023 for anemia and he did undergo both an upper and lower endoscopy by [facility] without any overt bleeding source identified. He has apparently required outpatient blood transfusion one month ago. In October, his hemoglobin was noted to be 9.5. On admission, hemoglobin was 6.7 and hematocrit 20.5. He has received 2 units of PRBCs with subsequent H&H 8.2/24.5. Patient reports no nausea or vomiting, abdominal pain, dizziness, chest pain, or shortness of breath. He has been placed on NPO status and started on a PPI ggt. Patient states he has been noticing dark blood when wiping only. Allergies Allergy/AdvReac Type Severity Reaction Status Date / Time NSAIDS (Non-Steroidal Allergy Intermediate Rash Verified 03/01/24 10:09 Anti-Inflamma YONATAN Inhibitors AdvReac Intermediate Cough Verified 03/01/24 10:09 carbidopa AdvReac Intermediate constipatio Verified 03/01/24 10:09 n levodopa AdvReac Intermediate constipatio Verified 03/01/24 10:09 n Home Medications Medication Instructions Recorded Confirmed Type amantadine HCl 100 mg capsule 100 mg PO .DAILY @LUNCH 05/22/20 02/29/24 History torsemide 20 mg tablet 40 mg PO QAM 11/28/22 02/29/24 History dutasteride 0.5 mg capsule 0.5 mg PO QAM 01/24/23 02/29/24 History metoprolol succinate 25 mg 25 mg PO QAM #90 tabs 03/21/23 02/29/24 Rx tablet,extended release 24 hr donepezil 10 mg tablet 10 mg PO QPM 10/06/23 02/29/24 History atorvastatin 40 mg tablet 40 mg PO QAM 01/08/24 02/29/24 History escitalopram oxalate 20 mg tablet 20 mg PO QAM #90 tabs 02/09/24 02/29/24 Rx acetaminophen 500 mg tablet 1,000 mg PO Q8H PRN Pain 02/29/24 02/29/24 History acetaminophen 500 mg tablet 1,000 mg PO QAM 02/29/24 02/29/24 History betamethasone dipropionate 0.05 % 1 applic topical BID 02/29/24 02/29/24 History topical ointment cholecalciferol (vitamin D3) 25 25 mcg PO QPM 02/29/24 02/29/24 History mcg (1,000 unit) capsule levalbuterol tartrate 45 1 puff inhalation Q6H PRN Wheezing 02/29/24 02/29/24 History mcg/actuation aerosol inhaler pantoprazole 40 mg tablet,delayed 40 mg PO QAM 02/29/24 02/29/24 History release vitamin B complex 1 cap PO DAILY 02/29/24 02/29/24 History Patient History Medical History GI bleed 09/2023 Anemia 09/2023 inpt at [facility] Atrial fibrillation f/u KWABENA Fritz Eliquis on hold due to anemia History of blood transfusion 10/06/23- was admitted at [facility], low blood count, reason for upcoming procedure 03/24/23, "he's bleeding somewhere, has a low blood count, not sure where losing it from"; f/u Dr. 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 History of pneumonia end of 01/2023, found in lt. 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 Benz, [facility] Thoracic [place] [facility] Lumbar spondylosis MUSTAFA (dyspnea on exertion) inh prn Coronary aneurysm (2011) Per cardio records CAD with CABG in 2011 (CHILDS to LAD and exclusion of RCA aneurysm Adverse reaction to anesthetic agent 2011 w/hip replacement>hallucinated for 3 days Orthostatic hypotension (07/2019) Peripheral arterial disease Recurrent cellulitis of lower extremity reason for daily cephalexin Anxiety BPH (benign prostatic hyperplasia) CAD (coronary artery disease) history of CABG (CHILDS to LAD and exclusion of a right coronary artery aneurysm), [place] [facility] Surgical History History of carpal tunnel release of both wrists History of esophagogastroduodenoscopy (EGD) Hx of colonoscopy Hx of bilateral cataract extraction History of neck surgery [facility] w/Dr. Pacheco; ROM-"can't turn it very far side to side nor move it up or down very far" S/P wrist surgery S/P CABG (coronary artery bypass graft) (2011) CHILDS, "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 S/P triple vessel bypass (2011) [facility] Weathers; f/u Dr. Benz, [facility] History of right hip replacement H/O foot surgery reconstructive sx on rt. foot H/O eye surgery numerous when he was young Family History Unknown No problems noted. Father Hypertension, Onset Age: 40 at 40 Mother Hypertension COPD (chronic obstructive pulmonary disease) Diabetes Brother Allergies Asthma Denies family history of Prostate cancer Hearing loss No family history of adverse response to anesthesia No family history of bleeding disorder Heart disease Cancer Stroke Social History Smoking Status: Never smoker Tobacco Type: Cigars Second Hand Exposure: No; Do You Dip or Chew Tobacco: No; Tobacco Cessation Education Requested by Patient: No Hx Alcohol Use: No Hx Substance Use: No Preferred Language: Luxembourgish Communication Ability: Effective Communication Ability Comment: Hard of hearing Line Producer Required: No Beliefs That Will Affect Care: None marital status: Current Living Situation: Spouse Current Living Situation Comment: Lives at home with spouse Other Information That Helps Us Care for You: No Feels Safe at Home: Yes Safety Concerns: Feels Safe At This Time Assistive Devices: Walker Review of Systems Constitutional: + fatigue; no fever and no chills Respiratory: as per Subjective / HPI Cardiovascular: as per Subjective / HPI Gastrointestinal: as per Subjective / HPI Physical Exam Constitutional: WD/WN, vitals as above Respiratory: normal respiratory effort, lungs clear to auscultation Cardiovascular: Rate/Rhythm: regular rate and regular rhythm Heart Sounds: + murmur Gastrointestinal (Abdomen): Inspection/Auscultation: normal bowel sounds Percussion/Palpation: abdomen soft; abdomen nontender, no guarding and abdomen not rigid Psychiatric: A+Ox3, euthymic affect Results & Data Vital Signs (Past 12 Hours) Vital Signs Temp Pulse Pulse Resp BP BP BP 03/01/24 08:00 85 03/01/24 07:50 36.8 C 77 19 140/80 03/01/24 03:07 37.0 C 86 20 163/92 H 03/01/24 00:57 36.8 C 84 16 148/66 H 03/01/24 00:25 36.9 C 88 18 159/71 H 02/29/24 23:25 36.9 C 74 16 185/71 H 02/29/24 23:10 37 C 80 16 153/78 H 02/29/24 22:59 37 C 81 16 161/77 H 02/29/24 22:55 81 16 161/77 H 02/29/24 22:37 37.3 C 83 18 150/79 H 02/29/24 22:33 02/29/24 22:25 36.5 C 76 18 143/83 H 02/29/24 21:59 78 Pulse Ox O2 Del Method 03/01/24 08:00 03/01/24 07:50 96 Room Air 03/01/24 03:07 91 Room Air 03/01/24 00:57 95 03/01/24 00:25 96 02/29/24 23:25 94 02/29/24 23:10 95 02/29/24 22:59 96 Room Air 02/29/24 22:55 96 02/29/24 22:37 93 02/29/24 22:33 Room Air 02/29/24 22:25 92 02/29/24 21:59 Diagnostic Findings Laboratory Results WBC 3.45 K/ul (4.8-10.8) L 03/01/24 05:17 RBC 2.56 M/uL (4.70-6.10) L 03/01/24 05:17 Hgb 8.2 g/dl (14.0-18.0) L 03/01/24 05:17 Hct 24.5 % (42.0-52.0) L 03/01/24 05:17 MCV 95.7 fL (80.0-100.0) D 03/01/24 05:17 MCH 32.0 pg (25.0-34.0) 03/01/24 05:17 MCHC 33.5 g/dL (32.0-36.0) 03/01/24 05:17 RDW Std Deviation 65.1 fL (36.4-46.3) H 03/01/24 05:17 RDW Coeff of Anny 19.2 % (11.5-14.5) H 03/01/24 05:17 Plt Count 129 K/uL (130-400) L 03/01/24 05:17 MPV 9.0 fL (9.4-12.4) L 03/01/24 05:17 Immature Gran % (Auto) 2.0 % 03/01/24 05:17 Neut % (Auto) 65.5 % 03/01/24 05:17 Lymph % (Auto) 21.4 % 03/01/24 05:17 [place] % (Auto) 9.6 % 03/01/24 05:17 Eos % (Auto) 0.9 % 03/01/24 05:17 Baso % (Auto) 0.6 % 03/01/24 05:17 Neut # (Auto) 2.26 K/uL (1.40-6.50) 03/01/24 05:17 Lymph # (Auto) 0.74 K/uL (1.20-3.40) L 03/01/24 05:17 [place] # (Auto) 0.33 K/uL (0.11-0.59) 03/01/24 05:17 Eos # (Auto) 0.03 K/uL (0.00-0.50) 03/01/24 05:17 Baso # (Auto) 0.02 K/uL (0.00-0.20) 03/01/24 05:17 Immature Gran # (Auto) 0.07 K/uL (0.01-0.20) 03/01/24 05:17 PT 10.9 Seconds (9.0-12.0) 02/29/24 15:50 INR 1.0 (0.9-1.1) 02/29/24 15:50 APTT 23 Seconds (21-31) 02/29/24 15:50 PTT Ratio 0.9 02/29/24 15:50 Sodium 143 mmol/L (136-145) 03/01/24 05:17 Potassium 3.6 mmol/L (3.5-5.1) 03/01/24 05:17 Chloride 109 mmol/L (98-107) H 03/01/24 05:17 Carbon Dioxide 27 mmol/L (21-32) 03/01/24 05:17 Anion Gap 7 (3-11) 03/01/24 05:17 BUN 38 mg/dl (6-23) H 03/01/24 05:17 Creatinine 1.77 mg/dl (0.6-1.4) H 03/01/24 05:17 Est Cr Clr Drug Dosing 34.6 ml/min 03/01/24 05:17 Est GFR ( Amer) 41.4 ml/min 03/01/24 05:17 Est GFR (Non-Af Amer) 35.7 ml/min 03/01/24 05:17 BUN/Creatinine Ratio 21.5 (10-20) H 03/01/24 05:17 Glucose 153 mg/dl (70-99(Fasting)) H 03/01/24 05:17 POC Glucose 138 mg/dl (70-99) H 03/01/24 05:54 Calcium 8.5 mg/dl (8.6-10.3) L 03/01/24 05:17 Magnesium 2.0 mg/dl (1.7-2.4) 03/01/24 05:17 Iron 63 mcg/dl (35-175) 02/29/24 15:50 TIBC 281 mcg/dl (250-450) 02/29/24 15:50 Unsaturated IBC 218 mcg/dl (155-355) 02/29/24 15:50 Transferrin % Sat 22 % (20-50) 02/29/24 15:50 Total Bilirubin 0.3 mg/dl (0.2-1.0) 02/29/24 15:50 AST 16 U/L (13-39) 02/29/24 15:50 ALT 13 U/L (7-52) 02/29/24 15:50 Alkaline Phosphatase 109 U/L (34-104) H 02/29/24 15:50 Troponin I High Sens 12.3 pg/ml (0-20) 02/29/24 15:50 Total Protein 5.6 gm/dl (6.0-8.3) L 02/29/24 15:50 Albumin 3.5 gm/dl (3.4-5.0) 02/29/24 15:50 Globulin 2.1 gm/dl (2.5-4.0) L 02/29/24 15:50 Albumin/Globulin Ratio 1.7 (0.9-2) 02/29/24 15:50 POC Stool Occult Blood Positive (Negative) A 02/29/24 18:27 Blood Type A Positive 02/29/24 15:50 Antibody Screen NEGATIVE 02/29/24 15:50 Crossmatch See Detail 02/29/24 15:50 Impressions Chest X-Ray 02/29/24 16:19 SINGLE VIEW CHEST CLINICAL HISTORY: Dyspnea FINDINGS: An AP, portable, upright chest radiograph is compared to study dated 10/06/2023. The examination is degraded by portable technique and apical lordotic positioning. The patient is status post midline sternotomy. The heart is enlarged noting atherosclerotic calcification of the thoracic aorta. The pulmonary vasculature is noncongested. Chronic interstitial thickening is similar to previous. There is bibasilar scarring/atelectasis. No airspace consolidation or large pleural effusion is identified. No pneumothorax is seen. The skeletal structures are osteopenic. There are chronic/healed left-sided rib fractures. Arthritic change is seen in the shoulders. IMPRESSION: Cardiomegaly with no acute cardiopulmonary abnormality identified. ACT 112: Negative or not required by law. Electronically signed by: Gonzales Alvarado M.D. 02/29/2024 4:41 PM Venous Doppler Study 02/29/24 21:56 Exam(s): US VENOUS RIGHT LOWER EXTREMITY EXAM: US Duplex Right Lower Extremity Veins CLINICAL HISTORY: Reason for exam: rt lower extremityedema. dvt?. TECHNIQUE: Real-time duplex ultrasound scan of the right lower extremity veins integrating B-mode two-dimensional vascular structure, Doppler spectral analysis, color flow Doppler imaging and compression. COMPARISON: 01/25/2023. FINDINGS: Deep veins: Unremarkable. No DVT in the visualized common femoral, femoral, proximal deep femoral or popliteal veins. The veins demonstrate normal color flow, are normally compressible, with normal phasic flow and/or augmentation response. Superficial veins: Unremarkable. No thrombus in the visualized great saphenous vein. Soft tissues: Nonspecific edema through the calf region. No popliteal cyst. IMPRESSION: No ultrasonographic evidence of deep venous thrombosis involving the right lower extremity. Electronically signed by: Geetha Staples MD 03/01/24 02:41 AM PG Care Time/CCT Total # of Minutes Spent Total Time Spent with Patient: Total time spent is greater than 50% in coordination of care (as documented) at patient's floor/unit and/or counseling patient: Coding Level of Care Code 76367 INT INP/OBS CARE 3/75MIN Diagnoses Acute GI bleeding K92.2 Anemia D64.9 Elevated lipase R74.8
--- NOTE | 2024-03-01 10:01 | Anesthesiology Consultation ---
Date of Service March 01, 2024 Assessment & Plan Chart Review Chart Review: Acceptable Risk for Surgery, Patient NOT seen in Pre Admission Testing and entry level software engineer initiated Consults Requested none Proposed Anesthesia Anesthesia Type: MAC History Surgery Operation Date: 03/01/24 16:30 Proposed Procedures p Esophagogastroduodenoscopy Dr Rex Han Case, DO Height/Weight Height: 5 ft 7 in Weight: 78.9 kg Allergies Allergy/AdvReac Type Severity Reaction Status Date / Time NSAIDS (Non-Steroidal Allergy Intermediate Rash Verified 02/29/24 21:08 Anti-Inflamma YONATAN Inhibitors AdvReac Intermediate Cough Verified 02/29/24 21:08 carbidopa AdvReac Intermediate constipatio Verified 02/29/24 21:08 n levodopa AdvReac Intermediate constipatio Verified 02/29/24 21:08 n Medications Home Medications Medication Instructions Recorded Confirmed Last Taken amantadine HCl 100 mg capsule 100 mg PO .DAILY @LUNCH 05/22/20 02/29/24 10/17/23 torsemide 20 mg tablet 40 mg PO QAM 11/28/22 02/29/24 10/17/23 dutasteride 0.5 mg capsule 0.5 mg PO QAM 01/24/23 02/29/24 10/17/23 metoprolol succinate 25 mg 25 mg PO QAM #90 tabs 03/21/23 02/29/24 10/17/23 tablet,extended release 24 hr donepezil 10 mg tablet 10 mg PO QPM 10/06/23 02/29/24 10/17/23 atorvastatin 40 mg tablet 40 mg PO QAM 01/08/24 02/29/24 Unknown escitalopram oxalate 20 mg tablet 20 mg PO QAM #90 tabs 02/09/24 02/29/24 Unknown acetaminophen 500 mg tablet 1,000 mg PO Q8H PRN Pain 02/29/24 02/29/24 Unknown acetaminophen 500 mg tablet 1,000 mg PO QAM 02/29/24 02/29/24 Unknown betamethasone dipropionate 0.05 % 1 applic topical BID 02/29/24 02/29/24 Unknown topical ointment cholecalciferol (vitamin D3) 25 25 mcg PO QPM 02/29/24 02/29/24 Unknown mcg (1,000 unit) capsule levalbuterol tartrate 45 1 puff inhalation Q6H PRN Wheezing 02/29/24 02/29/24 Unknown mcg/actuation aerosol inhaler pantoprazole 40 mg tablet,delayed 40 mg PO QAM 02/29/24 02/29/24 Unknown release vitamin B complex 1 cap PO DAILY 02/29/24 02/29/24 Unknown Active Medications Generic Name Dose Route Start Last Admin Trade Name Freq PRN Reason Stop Dose Admin Acetaminophen 1,000 mg 03/01/24 09:00 03/01/24 08:15 Acetaminophen 500 Mg Tab PO 03/31/24 08:59 1,000 mg QAM JEANETH Administration Atorvastatin Calcium 40 mg 03/01/24 09:00 03/01/24 08:15 Atorvastatin 40 Mg Tab PO 03/31/24 08:59 40 mg QAM JEANETH Administration Escitalopram Oxalate 20 mg 03/01/24 09:00 03/01/24 08:16 Escitalopram Oxalate 20 Mg Tab PO 03/31/24 08:59 20 mg QAM JEANETH Administration Finasteride 5 mg 03/01/24 09:00 03/01/24 08:16 Finasteride 5 Mg Tab PO 03/31/24 08:59 5 mg QAM JEANETH Administration Fluocinonide 1 appln 03/01/24 09:00 03/01/24 08:17 Fluocinonide 0.05% Oint 15 Gm Tube EXT 03/31/24 08:59 1 appln BID JEANETH Administration Protocol Sodium Chloride 1,000 mls @ 75 mls/hr 02/29/24 21:26 03/01/24 09:56 Nss IV 03/01/24 10:45 0 mls/hr .[id number] JEANETH Infusion Pantoprazole Sodium 40 mg/ 100 mls @ 20 mls/hr 02/29/24 21:26 03/01/24 09:56 Dextrose IV 03/30/24 21:25 0 mg/hr Q5H JEANETH 0 mls/hr Infusion 8 MG/HR Insulin Aspart 0 units 02/29/24 21:26 03/01/24 06:00 Insulin Aspart Per Unit Charge SC 03/30/24 21:25 Not Given Q6 JEANETH Metoprolol Succinate 25 mg 03/01/24 09:00 03/01/24 08:16 Metoprolol Succ 25mg Ext Rel Tab PO 03/31/24 08:59 25 mg QAM JEANETH Administration Pantoprazole Sodium 40 mg 03/01/24 09:00 03/01/24 08:18 Pantoprazole 40 Mg Tab PO 03/31/24 08:59 Not Given QAM JEANETH Vitamin B Complex 1 tab 03/01/24 09:00 03/01/24 08:15 Vitamin B Complex Tab PO 03/31/24 08:59 1 tab DAILY JEANETH Administration Past Medical History Medical History GI bleed 09/2023 Anemia 09/2023 inpt at [facility] Atrial fibrillation f/u Dr. Benz, [facility] Eliquis on hold due to anemia History of blood transfusion 10/06/23- was admitted at [facility], low blood count, reason for upcoming procedure 03/24/23, "he's bleeding somewhere, has a low blood count, not sure where losing it from"; f/u Dr. 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 History of pneumonia end of 01/2023, found in lt. 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 Benz, [facility] [place]acic [place] [facility] [place]bar spondylosis MUSTAFA (dyspnea on exertion) inh prn Coronary aneurysm (2011) Per cardio records CAD with CABG in 2011 (CHILDS to LAD and exclusion of RCA aneurysm Adverse reaction to anesthetic agent 2011 w/hip replacement>hallucinated for 3 days Orthostatic hypotension (07/2019) Peripheral arterial disease Recurrent cellulitis of lower extremity reason for daily cephalexin Anxiety BPH (benign prostatic hyperplasia) CAD (coronary artery disease) history of CABG (CHILDS to LAD and exclusion of a right coronary artery aneurysm), [place] [facility] Past Family History Family History Unknown No problems noted. Father Hypertension, Onset Age: 40 at 40 Mother Hypertension COPD (chronic obstructive pulmonary disease) Diabetes Brother Allergies Asthma Denies family history of Prostate cancer Hearing loss No family history of adverse response to anesthesia No family history of bleeding disorder Heart disease Cancer Stroke Past Surgical History Surgical History History of carpal tunnel release of both wrists History of esophagogastroduodenoscopy (EGD) Hx of colonoscopy Hx of bilateral cataract extraction History of neck surgery [facility] w/Dr. Pacheco; ROM-"can't turn it very far side to side nor move it up or down very far" S/P wrist surgery S/P CABG (coronary artery bypass graft) (2011) [facility], "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 S/P triple vessel bypass (2011[place] [facility] [place]; f/u Dr. Benz, [facility] History of right hip replacement H/O foot surgery reconstructive sx on rt. foot H/O eye surgery numerous when he was young Social History Smoking Status: Never smoker tobacco type: cigars Do You Dip or Chew Tobacco: No Hx Alcohol Use: No Alcohol type: beer alcohol intake frequency: holidays/special occasions only Hx Substance Use: No substance use type: does not use Substance Use Type Other:: had medical marijuana card Last Used Substance Other:: did not ask when last used Physical Exam Vital Signs Last Vital Signs Temp 36.8 C 03/01/24 07:50 Pulse 85 03/01/24 08:00 Resp 19 03/01/24 07:50 BP 140/80 03/01/24 07:50 Pulse Ox 96 03/01/24 07:50 O2 Del Method Room Air 03/01/24 07:50 Testing Laboratory Results 03/01/24 05:17 03/01/24 05:17 PT 10.9 Seconds (9.0-12.0) 02/29/24 15:50 INR 1.0 (0.9-1.1) 02/29/24 15:50 APTT 23 Seconds (21-31) 02/29/24 15:50 Blood Type A Positive 02/29/24 15:50 Antibody Screen NEGATIVE 02/29/24 15:50 03/01/24 03/01/24 05:54 00:00 POC Glucose 138 H 156 H Electrocardiogram Date: 02/29/24 Atrial fibrillation Left axis deviation Incomplete right bundle branch block Cannot rule out Anterior infarct , age undetermined Abnormal ECG When compared with ECG of 07-OCT-2023 05:13, Atrial fibrillation has replaced Sinus rhythm Incomplete right bundle branch block is now Present T wave inversion no longer evident in Lateral leads 25mm/s10mm/[id number] 243CID: 19Unconfirmed Vent. rate 85 BPM WI interval * ms QRS duration 96 ms QT/QTc 400/476 ms P Chest X-Ray Date: 02/29/24 CLINICAL HISTORY: Dyspnea FINDINGS: An AP, portable, upright chest radiograph is compared to study dated 10/06/2023. The examination is degraded by portable technique and apical lordotic positioning. The patient is status post midline sternotomy. The heart is enlarged noting atherosclerotic calcification of the thoracic aorta. The pulmonary vasculature is noncongested. Chronic interstitial thickening is similar to previous. There is bibasilar scarring/atelectasis. No airspace consolidation or large pleural effusion is identified. No pneumothorax is seen. The skeletal structures are osteopenic. There are chronic/healed left-sided rib fractures. Arthritic change is seen in the shoulders. IMPRESSION: Cardiomegaly with no acute cardiopulmonary abnormality identified. Echocardiogram Date: 05/01/22 EF: 60-65 LV Function: normal RWMA: + none Other Findings: + LVH (mild) Valvular Disease: + AI (mild) and + MR (mild)
--- OUTSIDE RECORDS SUMMARY | 2024-03-01 10:24 | External Medical Summary ---
Author Name Unknown Address Unknown Organization K01:[facility] [place] - [address] [place] [id number] Laboratory Report Ordering Provider Test Date Status GUERRERO CHAUHAN 02/29/2024 11:11:57 Final Observation Date Value Abnormality Reference (Units ) Status Ferritin 02/29/2024 11:11:57 191 30-400 (ng /mL) Final Performing Location [facility] [place] - [address] [place] [id number]
--- NOTE | 2024-03-01 11:28 | GI REPORT ---
Patient Name: Jesus Jose Procedure Date: 03/01/2024 10:50 AM Date of : 1945 Admit Type: Inpatient Age: 78 Gender: Male Attending MD: Sage Goodman DO, Procedure: Small bowel enteroscopy Providers: Sage Goodman DO Referring MD: Odessa Chun Pa-c, Jeff Gibbs Indications: Melena Medicines: Monitored Anesthesia Care Complications: No immediate complications. Estimated Blood Loss: Estimated blood loss: none. Procedure: Pre-Anesthesia Assessment: - Prior to the procedure, a History and Physical was performed, and patient medications and allergies were reviewed. The patient's tolerance of previous anesthesia was also reviewed. The risks and benefits of the procedure and the sedation options and risks were discussed with the patient. All questions were answered, and informed consent was obtained. Prior Anticoagulants: The patient has taken no anticoagulant or antiplatelet agents. ASA Grade Assessment: III - A patient with severe systemic disease. After reviewing the risks and benefits, the patient was deemed in satisfactory condition to undergo the procedure. After obtaining informed consent, the endoscope was passed under direct vision. Throughout the procedure, the patient's blood pressure, pulse, and oxygen saturations were monitored continuously. The Colonoscope was introduced through the mouth and advanced to the proximal jejunum. The small bowel enteroscopy was accomplished without difficulty. The patient tolerated the procedure well. Findings: The examined esophagus was normal. A small hiatal hernia was present. The examined duodenum was normal. There was no evidence of significant pathology in the entire examined portion of jejunum. Impression: - Normal esophagus. - Small hiatal hernia. - Normal examined duodenum. - The examined portion of the jejunum was normal. - No specimens collected. Recommendation: - Return patient to [facility] for [facility] care. - Clear liquid diet. - Continue present medications. Sage Goodman DO 03/01/2024 11:28:25 AM This report has been signed electronically. Note Initiated On: 03/01/2024 10:50 AM Number of Addenda: 0 I attest to the content of the Intraoperative Record and orders documented therein, exceptions below {[id number]}
[2024-03-01] MEDS: SODIUM CHLORIDE 0.9% 500 ML IV SCH (12:33)
--- NOTE | 2024-03-01 13:20 | Anesthesiology Progress Note ---
Date of Service March 01, 2024 Anesthesia Post Procedure Vital Signs Vital Signs: Temp Pulse Pulse Resp BP BP BP 03/01/24 11:45 72 18 139/86 03/01/24 11:23 67 18 126/68 03/01/24 11:09 72 16 121/75 03/01/24 10:11 36.3 C L 75 16 133/75 03/01/24 08:00 85 03/01/24 07:50 36.8 C 77 19 140/80 03/01/24 03:07 37.0 C 86 20 163/92 H 03/01/24 00:57 36.8 C 84 16 148/66 H 03/01/24 00:25 36.9 C 88 18 159/71 H 02/29/24 23:25 36.9 C 74 16 185/71 H 02/29/24 23:10 37 C 80 16 153/78 H 02/29/24 22:59 37 C 81 16 161/77 H 02/29/24 22:55 81 16 161/77 H 02/29/24 22:37 37.3 C 83 18 150/79 H 02/29/24 22:33 02/29/24 22:25 36.5 C 76 18 143/83 H 02/29/24 21:59 78 02/29/24 21:38 36.8 C 87 18 159/77 H 02/29/24 21:29 36.9 C 85 18 163/74 H 02/29/24 21:26 36.8 C 87 18 159/77 H 02/29/24 21:26 02/29/24 20:56 36.8 C 93 H 20 129/77 02/29/24 20:16 84 02/29/24 20:15 36.6 C 84 19 136/84 02/29/24 19:17 36.8 C 77 21 135/82 02/29/24 19:02 36.7 C 78 20 144/84 H 02/29/24 19:00 78 23 02/29/24 18:44 36.7 C 72 18 133/72 02/29/24 18:30 80 17 02/29/24 18:00 79 19 02/29/24 17:30 71 02/29/24 17:00 78 22 02/29/24 16:30 81 21 02/29/24 16:06 81 02/29/24 16:04 77 23 02/29/24 16:03 02/29/24 16:03 71 18 133/72 02/29/24 15:18 36.5 C 85 20 136/65 Pulse Ox Pulse Ox O2 Del Method O2 Del Method 03/01/24 11:45 97 Room Air 03/01/24 11:23 97 Room Air 03/01/24 11:09 95 Room Air 03/01/24 10:11 95 Room Air 03/01/24 08:00 03/01/24 07:50 96 Room Air 03/01/24 03:07 91 Room Air 03/01/24 00:57 95 03/01/24 00:25 96 02/29/24 23:25 94 02/29/24 23:10 95 02/29/24 22:59 96 Room Air 02/29/24 22:55 96 02/29/24 22:37 93 02/29/24 22:33 Room Air 02/29/24 22:25 92 02/29/24 21:59 02/29/24 21:38 96 02/29/24 21:29 96 Room Air 02/29/24 21:26 96 Room Air 02/29/24 21:26 96 Room Air 02/29/24 20:56 94 02/29/24 20:16 02/29/24 20:15 02/29/24 19:17 96 02/29/24 19:02 02/29/24 19:00 96 02/29/24 18:44 95 02/29/24 18:30 96 02/29/24 18:00 93 02/29/24 17:30 94 02/29/24 17:00 96 02/29/24 16:30 93 02/29/24 16:06 02/29/24 16:04 96 02/29/24 16:03 94 Room Air 02/29/24 16:03 95 Room Air 02/29/24 15:18 97 Room Air Transfer of Care Handoff Completed per policy Notes Mental Status: alert / awake / arousable and participated in evaluation Patient Amnestic to Procedure: Yes Nausea / Vomiting: adequately controlled Pain: adequately controlled Airway Patency, RR, SpO2: stable & adequate BP & HR: stable & adequate Hydration State: stable & adequate Anesthetic Complications: no major complications apparent
[2024-03-01] MEDS: AMANTADINE HCL 100 MG CAPSULE PO SCH (13:28)
[2024-03-01 13:33] LABS: Hematocrit (blood only) 26.7 % (42.0-52.0); Hemoglobin 8.8 g/dl (14.0-18.0)
[2024-03-01] MEDS ORDERED: Nursing to Pharmacy Communication SCH (14:15)
--- NOTE | 2024-03-01 14:48 | Hospitalist Progress Note ---
Date of Service March 01, 2024 Assessment & Plan (1) Acute on chronic anemia: Plan: 78-year-old male with past medical history significant for type 2 diabetes, chronic diastolic CHF, CKD stage III, CAD s/p CABG, hypertension, wandering atrial pacemaker, atrial fibrillation, GERD without esophagitis, BPH, urge incontinence, stasis ulcers of right lower extremity, osteoarthritis of both knees, primary parkinsonism, dementia with Parkinson disease, iron deficiency anemia, cervical spinal stenosis, generalized anxiety disorder, history of cellulitis, presents with some blood per rectum and also black stools and anemia. He received 2 units of PRBCs and iron infusion on February 01 as per the . Had black stools for 3 days Outpatient labs showed hemoglobin in 6's. Acute on chronic anemia Chronic iron deficiency anemia Likely having black stools and also some blood per rectum Hemoglobin 6.7 on admission Hemoccult positive in the ER S/P 2 PRBC Was on PPI drip Last colonoscopy in October 18, 2023 showed diverticulosis in the sigmoid colon and internal hemorrhoids Last EGD in October 18, 2023 showed gastritis. And also question of some ischemia. And recommendation was Doppler mesenteric ultrasound. Small bowel enteroscopy today noted normal esophagus, small hiatal hernia, normal duodenum, no evidence of significant pathology in the entire examined portion of the jejunum. Last hemoglobin is 8.8. Will continue clear liquid diet. Will monitor hemoglobin. PPI drip stopped. CKD stage III Baseline creatinine 1.7-1.9 Cr is 1.77 today Chronic diastolic CHF Resume home torsemide Lower extremity edema Chronic RLE dopplers negative for DVT Atrial fibrillation Rate controlled with metoprolol succinate Not on anticoagulation Hyperlipidemia On statin CAD s/p CABG On statin and beta-augie Depression Generalized anxiety disorder On Lexapro and bupropion. BPH On Avodart GERD On Protonix Dementia On memantine and donezepil DVT prophylaxis SCDs Full code I spent a total of 50 minutes coordinating, documenting and providing care for this patient excluding time spent in performance of separately billed services Admission and Anticipated Discharge Date Admission Date: February 29, 2024 Subjective Patient seen and examined after returning from EGD Patient has chronic hearing deficits. Reports leg swelling which is chronic. at bedside. Patient had black stools at home. He currently denies any other complaints on review of system Physical Exam 2 Constitutional: + well hydrated; no acute distress Eyes: PERRL, conjunctivae normal, anicteric sclerae ENMT: Hearing deficit Respiratory: normal respiratory effort, lungs clear to auscultation Cardiovascular: Rate/Rhythm: regular rate and regular rhythm Gastrointestinal (Abdomen): normal bowel sounds, soft, nontender, no hepatosplenomegaly Musculoskeletal: Bilateral pedal edema. Ulcers on right leg Neurologic: PERRL, EOMI, accommodation nl, no face palsy, no dysarthria Psychiatric: Alert, oriented and cooperative Results & Data Results & Data Vital Signs (Past 12 Hours) Vital Signs Temp Pulse Pulse Resp BP BP Pulse Ox 03/01/24 11:45 72 18 139/86 97 03/01/24 11:23 67 18 126/68 97 03/01/24 11:09 72 16 121/75 95 03/01/24 10:11 36.3 C L 75 16 133/75 95 03/01/24 08:00 85 03/01/24 07:50 36.8 C 77 19 140/80 96 03/01/24 03:07 37.0 C 86 20 163/92 H 91 O2 Del Method 03/01/24 11:45 Room Air 03/01/24 11:23 Room Air 03/01/24 11:09 Room Air 03/01/24 10:11 Room Air 03/01/24 08:00 03/01/24 07:50 Room Air 03/01/24 03:07 Room Air Laboratory Results Abnormal lab results 02/29/24 02/29/24 02/29/24 Range/Units 15:50 18:27 21:46 WBC 3.91 L (4.8-10.8) K/ul RBC 1.96 L (4.70-6.10) M/uL Hgb 6.7 L* (14.0-18.0) g/dl Hct 20.5 L* (42.0-52.0) % MCV 104.6 H (80.0-100.0) fL MCH 34.2 H (25.0-34.0) pg RDW Std Deviation 63.3 H (36.4-46.3) fL RDW Coeff of Anny 16.9 H (11.5-14.5) % Plt Count (130-400) K/uL MPV (9.4-12.4) fL Lymph # (Auto) (1.20-3.40) K/uL Chloride (98-107) mmol/L BUN 48 H (6-23) mg/dl Creatinine 2.04 H (0.6-1.4) mg/dl BUN/Creatinine Ratio 23.5 H (10-20) Glucose 266 H (70-99(Fasting)) mg/dl POC Glucose 145 H (70-99) mg/dl Calcium (8.6-10.3) mg/dl Alkaline Phosphatase 109 H (34-104) U/L Total Protein 5.6 L (6.0-8.3) gm/dl Globulin 2.1 L (2.5-4.0) gm/dl POC Stool Occult Blood Positive A (Negative) Crossmatch See Detail 03/01/24 03/01/24 03/01/24 Range/Units 00:00 02:11 05:17 WBC 3.45 L (4.8-10.8) K/ul RBC 2.56 L (4.70-6.10) M/uL Hgb 8.4 L 8.2 L (14.0-18.0) g/dl Hct 25.0 L 24.5 L (42.0-52.0) % MCV (80.0-100.0) fL MCH (25.0-34.0) pg RDW Std Deviation 65.1 H (36.4-46.3) fL RDW Coeff of Anny 19.2 H (11.5-14.5) % Plt Count 129 L (130-400) K/uL MPV 9.0 L (9.4-12.4) fL Lymph # (Auto) 0.74 L (1.20-3.40) K/uL Chloride 109 H (98-107) mmol/L BUN 38 H (6-23) mg/dl Creatinine 1.77 H (0.6-1.4) mg/dl BUN/Creatinine Ratio 21.5 H (10-20) Glucose 153 H (70-99(Fasting)) mg/dl POC Glucose 156 H (70-99) mg/dl Calcium 8.5 L (8.6-10.3) mg/dl Alkaline Phosphatase (34-104) U/L Total Protein (6.0-8.3) gm/dl Globulin (2.5-4.0) gm/dl POC Stool Occult Blood (Negative) Crossmatch 03/01/24 03/01/24 03/01/24 Range/Units 05:54 12:30 13:10 WBC (4.8-10.8) K/ul RBC (4.70-6.10) M/uL Hgb 8.8 L (14.0-18.0) g/dl Hct 26.7 L (42.0-52.0) % MCV (80.0-100.0) fL MCH (25.0-34.0) pg RDW Std Deviation (36.4-46.3) fL RDW Coeff of Anny (11.5-14.5) % Plt Count (130-400) K/uL MPV (9.4-12.4) fL Lymph # (Auto) (1.20-3.40) K/uL Chloride (98-107) mmol/L BUN (6-23) mg/dl Creatinine (0.6-1.4) mg/dl BUN/Creatinine Ratio (10-20) Glucose (70-99(Fasting)) mg/dl POC Glucose 138 H 134 H (70-99) mg/dl Calcium (8.6-10.3) mg/dl Alkaline Phosphatase (34-104) U/L Total Protein (6.0-8.3) gm/dl Globulin (2.5-4.0) gm/dl POC Stool Occult Blood (Negative) Crossmatch
[2024-03-01] MEDS: TORSEMIDE 20 MG TAB PO SCH (15:48)
[2024-03-01] MEDS: INSULIN ASPART PER UNIT CHARGE SC SCH (16:56)
[2024-03-01 17:10] LABS: Hematocrit (blood only) 26.7 % (42.0-52.0); Hemoglobin 8.6 g/dl (14.0-18.0)
[2024-03-01] MEDS: CHOLECALCIFEROL 25 MCG (1000 UNITS) TAB PO SCH (20:39)
[2024-03-01] MEDS: DONEPEZIL HCL 10 MG TAB PO SCH (20:39)
[2024-03-01 23:31] LABS: Hematocrit (blood only) 26.9 % (42.0-52.0)
--- NOTE | 2024-03-02 06:18 | Electrocardiogram Report ---
Test Reason : Blood Pressure : / mmHG Vent. Rate : 085 BPM Atrial Rate : 000 BPM P-R Int : 000 ms QRS Dur : 096 ms QT Int : 400 ms P-R-T Axes : 000 -37 057 degrees QTc Int : 476 ms Sinus rhythm with frequent , and consecutive Premature atrial complexes Left axis deviation Incomplete right bundle branch block Cannot rule out Anterior infarct , age undetermined Nonspecific ST abnormality Abnormal ECG When compared with ECG of 07-OCT-2023 05:13, Incomplete right bundle branch block is now Present Confirmed by Richardson Leone ([id number]) on 03/02/2024 6:18:02 AM Referred By: Confirmed By:Richardson Leone
[2024-03-02 07:28] LABS: Hematocrit (blood only) 26.7 % (42.0-52.0); Hemoglobin 8.9 g/dl (14.0-18.0); Mean Corpuscular Hemoglobin 32.1 pg (25.0-34.0); Mean Corpuscular Hgb Conc 33.3 g/dL (32.0-36.0); Mean Corpuscular Volume 96.4 fL (80.0-100.0); Mean Platelet Volume 9.2 fL (9.4-12.4); Platelet Count 137 K/uL (130-400); RDW Coefficient of Variation 19.1 % (11.5-14.5); RDW Standard Deviation 65.3 fL (36.4-46.3); Red Blood Count 2.77 M/uL (4.70-6.10); White Blood Count 3.16 K/ul (4.8-10.8)
[2024-03-02 07:51] LABS: BUN Creatinine Ratio 16.5 (10-20); Creatinine Clr Calc Pharmacy 30.8 ml/min; Est GFR (Non-African American) 34.6 ml/min; Magnesium 1.8 mg/dl (1.7-2.4); Potassium 3.5 mmol/L (3.5-5.1)
--- NOTE | 2024-03-02 13:00 | Hospitalist Progress Note ---
Date of Service March 02, 2024 Assessment & Plan (1) Acute on chronic anemia: Plan: 78-year-old male with past medical history significant for type 2 diabetes, chronic diastolic CHF, CKD stage III, CAD s/p CABG, hypertension, wandering atrial pacemaker, atrial fibrillation, GERD without esophagitis, BPH, urge incontinence, stasis ulcers of right lower extremity, osteoarthritis of both knees, primary parkinsonism, dementia with Parkinson disease, iron deficiency anemia, cervical spinal stenosis, generalized anxiety disorder, history of cellulitis, presents with some blood per rectum and also black stools and anemia. He received 2 units of PRBCs and iron infusion on February 01 as per the . Had black stools for 3 days Outpatient labs showed hemoglobin in 6's. Acute on chronic anemia Chronic iron deficiency anemia Likely having black stools and also some blood per rectum Hemoglobin 6.7 on admission Hemoccult positive in the ER S/P 2 PRBC Last colonoscopy in October 18, 2023 showed diverticulosis in the sigmoid colon and internal hemorrhoids Last EGD in October 18, 2023 showed gastritis. And also question of some ischemia. And recommendation was Doppler mesenteric ultrasound. Small bowel enteroscopy on 03/01/24 noted normal esophagus, small hiatal hernia, normal duodenum, no evidence of significant pathology in the entire examined portion of the jejunum. Hb stable so far. 8.9 this AM Advance diet as tolerated Will monitor hemoglobin. CKD stage III Baseline creatinine 1.7-1.9 Cr is 1.82 today Chronic diastolic CHF Resume home torsemide Lower extremity edema Chronic RLE dopplers negative for DVT Atrial fibrillation Rate controlled with metoprolol succinate Not on anticoagulation Hyperlipidemia On statin CAD s/p CABG On statin and beta-augie Depression Generalized anxiety disorder On Lexapro and bupropion. BPH On Avodart GERD On Protonix Dementia On memantine and donezepil DVT prophylaxis SCDs Full code I spent a total of 40 minutes coordinating, documenting and providing care for this patient excluding time spent in performance of separately billed services Admission and Anticipated Discharge Date Admission Date: February 29, 2024 Subjective Patient seen and examined Patient has chronic hearing deficits. Chronic leg swelling RN reported greenish BM earlier today He currently denies any other complaints on review of system Physical Exam Constitutional: + well hydrated; no acute distress Eyes: PERRL, conjunctivae normal, anicteric sclerae ENMT: +Hearing deficits Respiratory: normal respiratory effort, lungs clear to auscultation Cardiovascular: Rate/Rhythm: regular rate and regular rhythm Gastrointestinal (Abdomen): normal bowel sounds, soft, nontender, no hepatosplenomegaly Musculoskeletal: +pedal edema Stasis changes Dressing over wound on RLE Neurologic: PERRL, EOMI, accommodation nl, no face palsy, no dysarthria Psychiatric: A+Ox3, euthymic affect Results & Data Results & Data Vital Signs (Past 12 Hours) Vital Signs Temp Pulse Pulse Resp BP BP Pulse Ox 03/02/24 11:12 36.3 C L 75 25 H 139/78 95 03/02/24 11:08 87 03/02/24 08:38 36.8 C 101 H 21 158/76 H 97 03/02/24 03:44 36.6 C 82 19 149/73 H 93 O2 Del Method 03/02/24 11:12 Room Air 03/02/24 11:08 03/02/24 08:38 Room Air 03/02/24 03:44 Room Air Laboratory Results Abnormal lab results 03/01/24 03/01/24 03/01/24 Range/Units 16:26 16:44 22:48 WBC (4.8-10.8) K/ul RBC (4.70-6.10) M/uL Hgb 8.6 L 9.0 L (14.0-18.0) g/dl Hct 26.7 L 26.9 L (42.0-52.0) % RDW Std Deviation (36.4-46.3) fL RDW Coeff of Anny (11.5-14.5) % MPV (9.4-12.4) fL BUN (6-23) mg/dl Creatinine (0.6-1.4) mg/dl Glucose (70-99(Fasting)) mg/dl POC Glucose 196 H (70-99) mg/dl 03/02/24 03/02/24 03/02/24 Range/Units 06:18 07:26 11:32 WBC 3.16 L (4.8-10.8) K/ul RBC 2.77 L (4.70-6.10) M/uL Hgb 8.9 L (14.0-18.0) g/dl Hct 26.7 L (42.0-52.0) % RDW Std Deviation 65.3 H (36.4-46.3) fL RDW Coeff of Anny 19.1 H (11.5-14.5) % MPV 9.2 L (9.4-12.4) fL BUN 30 H (6-23) mg/dl Creatinine 1.82 H (0.6-1.4) mg/dl Glucose 131 H (70-99(Fasting)) mg/dl POC Glucose 149 H 165 H (70-99) mg/dl
[2024-03-03 06:32] LABS: Hematocrit (blood only) 26.6 % (42.0-52.0); Hemoglobin 8.9 g/dl (14.0-18.0); Mean Corpuscular Hemoglobin 32.8 pg (25.0-34.0); Mean Corpuscular Hgb Conc 33.5 g/dL (32.0-36.0); Mean Corpuscular Volume 98.2 fL (80.0-100.0); Mean Platelet Volume 9.4 fL (9.4-12.4); Platelet Count 125 K/uL (130-400); RDW Coefficient of Variation 18.6 % (11.5-14.5); RDW Standard Deviation 63.7 fL (36.4-46.3); Red Blood Count 2.71 M/uL (4.70-6.10); White Blood Count 4.68 K/ul (4.8-10.8)
[2024-03-03 07:19] LABS: BUN Creatinine Ratio 14.5 (10-20); Calcium 8.6 mg/dl (8.6-10.3); Creatinine Clr Calc Pharmacy 27.1 ml/min; Est GFR (African American) 34.3 ml/min; Est GFR (Non-African American) 29.6 ml/min; Potassium 3.5 mmol/L (3.5-5.1)
--- NOTE | 2024-03-03 12:19 | Electrocardiogram Report ---
Test Reason : Blood Pressure : / mmHG Vent. Rate : 092 BPM Atrial Rate : 084 BPM P-R Int : 138 ms QRS Dur : 092 ms QT Int : 394 ms P-R-T Axes : 000 -45 088 degrees QTc Int : 487 ms Poor data quality, interpretation may be adversely affected Sinus rhythm with competing ectopic atrial rhythm and PACs Premature ventricular complexes Left axis deviation Poor R wave progression, consider anterior AK vs. lead placement vs. LVH Abnormal ECG When compared with ECG of 29-FEB-2024 15:57, Premature ventricular complexes are now Present Confirmed by Jw Ward ([id number] on 03/03/2024 12:19:16 PM Referred By: Odessa Chun Confirmed By:Eduar Ward
--- NOTE | 2024-03-03 13:39 | Discharge Summary ---
Date of Service March 03, 2024 Admission HPI Per Admitting Provider 78-year-old male with past medical history significant for type 2 diabetes, chronic diastolic CHF, CKD stage III, CAD s/p CABG, hypertension, wandering atrial pacemaker, atrial fibrillation, GERD without esophagitis, BPH, urge incontinence, stasis ulcers of right lower extremity, osteoarthritis of both knees, primary parkinsonism, dementia with Parkinson disease, iron deficiency anemia, cervical spinal stenosis, generalized anxiety disorder, history of cellulitis, presents with some blood per rectum and also black stools and anemia.Patient has chronic iron deficiency anemia. He received 2 units of PRBCs and iron infusion on February 01 as per the . And lately was feeling more weaker and sleeping a lot and outpatient labs showed hemoglobin in 6's. Patient also states he has black stools for 3 days. In last few days he is wiping some blood when he is cleaning his stools. Denies any abdominal pain. Micturating okay. No hematuria. His right leg is chronically swollen as per patient. He has some ulcers on that leg. Ambulates with a walker. Appetite is good. Denies any chest pain or shortness of breath. No headache. Has chronic neck pain. Vision is okay. No runny nose. Some dry throat. Occasional cough. No earaches. No back pain. Patient is very hard of hearing and has to write on the paper. Currently resting comfortably and hemodynamically stable. Past medical history. As mentioned above Past surgical history. Carpal tunnel surgery. Colonoscopy. EGD. Hammertoe surgery. Right ankle fusion surgery. C3/6 laminectomy and posterior fusion. Bilateral cataract surgery. Tonsillectomy and adenoidectomy. Revision of upper eyelid. Right hip replacement. Social history. . No smoking. No alcohol use. No drug use. Family history. Mother had CAD. COPD. Father had hypertension. Stroke. Daughter has bipolar disorder. Asthma. Admission Exam Per Admitting Provider General- Not in distress Head- atraumatic Eyes- PERRL. ENT- oropharynx clear Neck- supple, no JVD. Lungs- clear to auscultation no wheezing or crackles Heart- regular rhythm; no murmur, no gallop. Abdomen- normal bowel sounds, soft, nontender, no distension. Extremities- b/l lower extremity edema. RT >> Lt. superficial ulcer seen on right yang Neuro- alert, oriented . Hard of hearing; PERRL, no facial palsy; no dysarthria; moves extremities. Principal Diagnosis Acute on chronic anemia Acute blood loss anemia Discharge Exam Constitutional + well hydrated; no acute distress Eyes PERRL, conjunctivae normal, anicteric sclerae ENMT +Hearing deficits Respiratory normal respiratory effort, lungs clear to auscultation Cardiovascular Rate/Rhythm: regular rate and regular rhythm Gastrointestinal (Abdomen) normal bowel sounds, soft, nontender, no hepatosplenomegaly Musculoskeletal +pedal edemaStasis changes Dressing over wound on RLE Neurologic PERRL, EOMI, accommodation nl, no face palsy, no dysarthria Psychiatric A+Ox3, euthymic affect Discharge Data Allergies Allergy/AdvReac Type Severity Reaction Status Date / Time NSAIDS (Non-Steroidal Allergy Intermediate Rash Verified 03/01/24 10:09 Anti-Inflamma YONATAN Inhibitors AdvReac Intermediate Cough Verified 03/01/24 10:09 carbidopa AdvReac Intermediate constipatio Verified 03/01/24 10:09 n levodopa AdvReac Intermediate constipatio Verified 03/01/24 10:09 n Consultations 02/29/24 19:13 ED Decision to Admit Stat 03/01/24 08:00 Consult Gastroenterology Routine Procedures Performed Operation Date: 03/01/24 16:30 Actual Procedures p Small Bowel Enteroscopy EGD - Sage Han Case, DO Ordered Studies 02/29/24 21:56 US venous doppler LE RT Routine Hospital Course (1) Acute on chronic anemia: 78-year-old male with past medical history significant for type 2 diabetes, chronic diastolic CHF, CKD stage III, CAD s/p CABG, hypertension, wandering atrial pacemaker, atrial fibrillation, GERD without esophagitis, BPH, urge incontinence, stasis ulcers of right lower extremity, osteoarthritis of both kne es, primary parkinsonism, dementia with Parkinson disease, iron deficiency anemia, cervical spinal stenosis, generalized anxiety disorder, history of cellulitis, presents with some blood per rectum and also black stools and anemia. He received 2 units of PRBCs and iron infusion on February 01 as per the . Had black stools for 3 days Outpatient labs showed hemoglobin in 6's. Acute on chronic anemia Chronic iron deficiency anemia Likely having black stools and also some blood per rectum Hemoglobin 6.7 on admission Hemoccult positive in the ER S/P 2 PRBC Last colonoscopy in October 18, 2023 showed diverticulosis in the sigmoid colon and internal hemorrhoids Last EGD in October 18, 2023 showed gastritis. And also question of some ischemia. And recommendation was Doppler mesenteric ultrasound. Small bowel enteroscopy on 03/01/24 noted normal esophagus, small hiatal hernia, normal duodenum, no evidence of significant pathology in the entire examined portion of the jejunum. Hb has remained stable since at 8.9 No bloody BM since after endoscopy Possibly lower GI bleeding that has resolved CKD stage III Baseline creatinine 1.7-1.9 Cr is 2.07 today Chronic diastolic CHF Continue home torsemide Lower extremity edema Chronic RLE dopplers negative for DVT Atrial fibrillation Rate controlled with metoprolol succinate Not on anticoagulation Hyperlipidemia On statin CAD s/p CABG On statin and beta-augie Depression Generalized anxiety disorder On Lexapro and bupropion. BPH On Avodart GERD On Protonix Dementia On memantine and donezepil Total Time Total Time Spent Total Time Spent (In Minutes): 35 Total Time Includes: Examination of the Patient, Discharge Planning and Medication Reconciliation Discharge Plan Discharge Items Patient Disposition: Home - Self-Care Reason For Visit: RECTAL BLEED, ANEMIA Discharge Diagnosis: Acute on chronic anemia Acute blood loss anemia Activity: Resume your previous activity Non-emergency contact: Primary Care Provider and [facility] Call non-emergency contact if: you have any medication questions and your symptoms worsen Follow-up/Referrals: Michael Hinton MD [Primary Care Provider] - Diet: Heart Healthy Addtl Attending Provider Instructions: Mr Jose You came to the hospital complaining of dark and bloody stools You were noted to have low hemoglobin requiring blood transfusion and small bowel enteroscopy. Your bloody stools have resolved and your hemoglobin stable. Please ensure follow up with your Family Doctor and [facility]. It was a pleasure taking care of you. Pending Studies at Discharge: No Stand-Alone Forms: My [employer], Smoking Cessation Medications and DC Order Prescriptions: Continued torsemide 20 mg tablet 40 mg PO QAM MDD 40mg metoprolol succinate 25 mg tablet extended release 24 hr 25 mg PO QAM Qty: 90 3RF escitalopram oxalate 20 mg tablet 20 mg PO QAM Qty: 90 3RF amantadine HCl 100 mg capsule 100 mg PO .DAILY @LUNCH dutasteride 0.5 mg Capsule 0.5 mg PO QAM donepezil 10 mg tablet 10 mg PO QPM atorvastatin 40 mg Tablet 40 mg PO QAM betamethasone dipropionate 0.05 % ointment 1 applic TOPICAL BID Rx Instructions: apply to skin lesions and scalp lesions up to two times a day for no longer than two weeks at a time for itch, then, take a two week break. pantoprazole 40 mg tablet,delayed release (DR/EC) 40 mg PO QAM cholecalciferol (vitamin D3) 25 mcg (1,000 unit) Capsule 25 mcg PO QPM acetaminophen 500 mg Tablet 1,000 mg PO Q8H PRN (Reason: Pain) acetaminophen 500 mg Tablet 1,000 mg PO QAM levalbuterol tartrate 45 mcg/actuation HFA aerosol inhaler 1 puff INHALATION Q6H PRN (Reason: Wheezing) vitamin B complex Capsule 1 cap PO DAILY Discharge Orders: Discharge Order (Routine); Ordered 03/03/24 Ordered By: Sonia Dale Admission Data Admit Date/Time: 02/29/24 20:07 Attending Provider: Sonia Dale I. Admit Provider: Jeff Gibbs Primary Care Provider: Michael Hinton Other Providers: Jeff Gibbs; Sage Goodman Other Interventions: Discharge Summary Assessment (RN) Last Done: 03/03/24 13:47
== END 2024-03-03 14:12 | disposition home or self-care (01) | DRG 378 ==
LOC: ED 15:07 → 2E 20:07

== ENCOUNTER 2024-05-04 16:39 | Inpatient (IN) ==
--- OUTSIDE RECORDS SUMMARY | 2024-05-04 16:46 | External Medical Summary | Summary of Care ---
Author Name Unknown Organization [facility] Address [address] [place] [address] Phone [phone] Care Team Providers Care Vocational Rehabilitation Teacher Name Role Phone Michael Hinton MD Primary Care Provider [phone] Reason for Visit * Reason Onset Date Comments Appointment 05/03/2024 Encounter Details Date Type Department Care Team ([facility] st Contact Info) Description 05/03/2024 Telephone [facility], [place] [address] [place] [address] [phone] Services, Scheduling [address] [place] [address] Appointment Allergies Active Allergy Reactions Criticality Noted Date Comments Fabiano Inhibitors Cough 06/09/2017 Carbidopa W-Levodopa 03/17/2021 Constipation Nsaids Rash 05/17/2018 Contraindicated per nuclear operations specialist documented as of this encounter (statuses as of 05/03/2024) Medications Medication Sig Dispensed Refills Start Date End Date Status Glucose Blood (ONETOUCH VERIO) STRPIndications:Typ e 2 diabetes mellitus with hemoglobin A1c goal of less than 8.0% ([facility]) Use up to 4 times a day E11.9 400 Strip 3 08/29/2018 Active ONETOUCH DELICA LANCETS 33G MISCIndications:Typ e 2 diabetes mellitus with hemoglobin A1c goal of less than 8.0% (HCC) Use up to 4 times a day 400 Each 3 08/29/2018 Active Acetaminophen 500 MG Oral Tablet Take 2 Tablets by mouth every 8 hours as needed. Take every morning Active Vitamin D (Cholecalciferol) 25 MCG (1000 UT) Oral Capsule Take 1 Capsule by mouth every evening. 30 Capsule 03/28/2023 Active Pantoprazole Sodium 40 MG Oral Tablet Delayed Release (Protonix) TAKE ONE TABLET BY MOUTH EVERY DAY 90 Tablet 3 04/15/2023 05/24/2024 Active Additional Information Patient taking differently: 40 mg Daily(AM), Reported on 11/30/2023 DIURETIC TITRATION PLAN If no improvement on day 3, contact heart failure managing provider. 1 Each 05/02/2023 Active metFORMIN HCl ER 500 MG [...] by mouth in the morning. 90 Capsule 10/13/2023 Active Betamethasone Dipropionate 0.05 % External OintmentIndications :Inflamed seborrheic keratosis APPLY TO SKIN LESIONS AND SCALP LESIONS UP TO TWO TIMES A DAY FOR NO LONGER THAN 2 WEEKS AT A TIME FOR ITCH. (THEN TAKE A 2 WEEK BREAK) 45 g 2 11/06/2023 11/05/2024 Active Spacer/Aero-Holding Chambers Device Use with inhaler. 1 Each 01/23/2024 Active Escitalopram Oxalate 20 MG Oral Tablet (Lexapro) take one tablet by mouth daily in the morning 90 Tablet 3 02/09/2024 Active Torsemide 20 MG Oral Tablet (Demadex)Indication s:Paroxysmal atrial fibrillation (HCC),Nonrheumatic mitral valve regurgitation,Coron daniel artery disease involving [place] coronary artery of [place] heart without angina pectoris,Stage 3b chronic kidney disease (HCC) Take 1 Tablet by mouth in the morning. 180 Tablet 3 03/13/2024 Active Amantadine HCl 100 MG Oral Capsule (Symmetrel) Take 1 capsule (100 mg total) by mouth daily . 90 Capsule 03/19/2024 Active Donepezil HCl 5 MG Oral Tablet (Aricept) Take 1 tablet (5 mg total) by mouth every morning 90 Tablet 04/29/2024 Active Metoprolol Succinate ER 25 MG Oral Tablet Extended Release 24 Hour (toPROL XL)Indications:Paro xysmal atrial fibrillation (HCC) Take 1 Tablet by mouth in the morning. 90 Tablet 3 05/02/2024 Active Vancomycin HCl 125 MG Oral Capsule (Vancocin) Take 1 Capsule by mouth in the morning and 1 Capsule at noon and 1 Capsule in the evening and 1 Capsule before bedtime. Do all this for 10 days. 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 Atherosclerosis of aorta 03/07/2024 Stasis ulcer of right lower extremity 01/24/2024 Last Assessment & Plan: Aquacel ag and dsd Monitor closely for s/s of cellulitis Will place HH ref to assist with dressings History of cellulitis 05/02/2023 Last Assessment & [...] days Exacerbation Plan BMP Pro-BNP Additional Comments: Increase torsemide to 40mg daily x 5 days, then resume 20mg daily Monitor weights with assistance Continue to elevate legs Iron deficiency anemia 07/28/2021 Last Assessment & Plan: Follows with [facility] hematology Routine labs monitored by hem/onc Update CBC tomorrow PRBC transfusions 01/2024, 02/2024 Type 2 diabetes mellitus wit h diabetic [...] knees 03/21/2018 Coronary artery disease invo lving [place] coronary artery of [place] heart without angina pectoris 03/21/2018 Last Assessment & Plan: Stable, Continue metoprolo, atorvastatin No ASA d/t history severe anemia--GI bleeding? Cervical spinal stenosis 08/18/2017 FABIANO (generalized anxiety disorder) 08/18/2017 Last Assessment & Plan: Symptoms stable -continue Lexapro Primary parkinsonism 08/18/2017 Last Assessment & Plan: -Continue amantadine Followed by Dr. 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 FABIANO inhibitor [...] as of this encounter (statuses as of 05/03/2024) Resolved Problems Problem Noted Date Diagnosed Date Resolved Date Paroxysmal atrial fibrillation 07/19/2023 03/07/2024 Immunodeficiency 03/28/2023 01/24/2024 Last Assessment & Plan: [...] as of this encounter (statuses as of 05/03/2024) Immunizations Name Administration Dates Next Due COVID-19 [...] 05/27/1997 TDAP (age 10 and older)(Boostrix) 10/24/2019 TDAP, Age 7 and older, IM (Adacel) 11/03/2008 Varicella Zoster Vaccine (Adult) 10/24/2019,08/23 Zoster Vaccine Recombinant (Shingrix) 10/24/2019 ,07/31/2019 documented as of this encounter Social History Tobacco Use Types Packs/Day Years Used Date Smoking Tobacco: Never Smokeless Tobacco: Never Alcohol Use Standard Drinks/Week Comments No 0 (1 standard drink = 0.6 oz pur e alcohol) PHQ-2 Answer Date Recorded PHQ Adult Total Score 0 03/07/2024 Hunger Vital Sign Answer Date Recorded Within the past 12 months, y ou worried that your food would run out before you got the money to buy more. Never true 11/02/19 23 Within the past 12 months, t he food you bought just didn't last and you didn't have money to get more. Never true 11/02/2022 Childcare Answer Date Recorded Do you feel overwhelmed with taking care of a child, family member or friend? No 03/07/2024 Does your family need help f inding childcare? (Household - for ages 0-17 years) Not on file 03/07/2024 Clothing Answer Date Recorded Have you been unable to get clothing when it was really needed? No 03/07/2024 Is your family able to get c lothes or diapers when needed? (Household - for ages 0-17 years) Not on file 03/07/2024 Personal Safety Answer Date Recorded Do you feel unsafe or have concerns for your saf ety? No 03/07/2024 Do you have concerns for you r family's safety? (Household - for ages 0-17 years) Not on file 03/07/2024 Utilities Answer Date Recorded Do you have trouble paying y our heating, water, or electric bill? No 03/07/2024 Is your family able to pay t he heat, water, or electric bill? (Household - for ages 0-17 years) Not on file 03/07/2024 Does your family have access to good internet? (Household - for ages 0-17 years) Not on file 03/07/2024 Employment Status Answer Date Recorded Are you unemployed or without regular income? No 03/07/2024 Does the household have a re gular source of income? (Household - for ages 0-17 years) Not on file 03/07/2024 Social Connections Answer Date Recorded How often do you feel lonely or isolated from th ose around you? Never 03/07/2024 Financial Resource Strain Answer Date R ecorded Do you have any trouble payi ng for your medications, or do you think you might in the future? No 03/07/2024 Does your family have troubl e paying for medicine? (Household - for ages 0-17 years) Not on file 03/07/2024 Transportation Needs Answer Date Record ed READ ONLY Do you have troubl e getting a ride to medical visits or work? Never True 03/07/2024 Does your family have a hard time getting a ride to doctors visits? (Household - for ages 0-17 years) Not on file 03/07/2024 Has lack of transportation k ept you from medical appointments, meetings, work, or from getting things needed for daily living? Check all that apply. (Adult - for ages 18 years and over) Not on file 03/07/2024 Do you (or your family) have trouble finding or paying for a ride (transportation)? (Household - for ages 0-17 years) Not on file 03/07/2024 Housing Stability Answer Date Recorded Do you currently live in a s helter or have no steady place to sleep at night? No 03/07/2024 READ ONLY Do you think you a re at risk of becoming homeless? No 03/07/2024 Does your family worry about paying for your home or becoming homeless? (Household - for ages 0-17 years) Not on file 0 03/07/2024 Are you homeless or worried that you might be in the future? (Adult - for ages 18 years and over) Not on file Are you (or your family) grabiel eless or worried that you might be in the future? (Household - for ages 0-17 years) Not on file Food Insecurity Answer Date Recorded Do you need food for this week? No 03/07/2024 Are you able to get enough f ood for your family? (Household - for ages 0-17 years) Not on file 03/07/2024 Does your family need food t his week? (Household - for ages 0-17 years) Not on file 03/07/2024 Do you always have enough fo od for your family? (Household - for ages 0-17 years) Not on file 03/07/2024 Sex and Gender Information Value Date Recorded Sex Assigned at Male 01/31/2019 7:38 AM EDT Gender Identity Male 01/31/2019 7:38 AM EDT Sexual Orientation Straight 01/31/2019 7: 38 AM EDT Job Start Date Occupation Industry Not on file Not on file Not on file documented as of this encounter Miscellaneous Notes * Telephone Encounter - Patti Vital OSA - 05/03/2024 1:16 PM EDT Ashley called, she received a message from Magy and did not understand the message regarding her , I put the call thru to the RN line, he is refusing to go to the ED. documented in this encounter Plan of Treatment Upcoming Encounters Date Type Department Care Team (Late st Contact Info) Description 05/03/2024 3:00 PM EDT Imaging Vascular Lab, [facility] 2nd [facility], [place] [address] [place] [address] 05/04/2024 10:00 AM EDT Scheduled Telephone [facility], [place] [address] [address] [place] [address] [facility], Nurse [address] [place] [address] 05/05/2024 9:45 AM EDT Scheduled Telephone [facility], [address] [place] [address] [facility], Nurse [facility] [address] [facility] [place] [address] 05/08/2024 2:30 PM EDT Telemedicine [facility], [facility] [address] [place] [address] Berny Power PA-C [address] [place] [address] Meri Mae, [facility] [employer] And Rolling Supervisor [address] [place] [facility] [address] 05/09/2024 7:00 AM EDT Laboratory Lab Mobile Phlebotomy [facility] [address] [place] [address] [facility], [facility] Mobile Home Draw [address] [facility] [place], [place] [address] 05/23/2024 7:00 AM EDT Laboratory Lab Mobile Phlebotomy [facility] [address] [facility] [place], [place] [address] [facility], [facility] Mobile Home Draw [address] [facility] [place], [place] [address] 05/31/2024 10:00 AM EDT [facility], [facility] [address] [facility] [place] [address] Peggy De RN [address] [place] [address] 06/06/2024 7:00 AM EDT Laboratory Lab Mobile Phlebotomy [facility] [address] [facility] [place], [place] [address] [facility], [facility] Mobile Home Draw [address] [facility] [place] [address] 06/20/2024 7:00 AM EDT Laboratory Lab Mobile Phlebotomy [facility] [address] [facility] [place], [place] [address] [facility], [facility] Mobile Home Draw [address] [facility] [place], [place] [address] 07/04/2024 7:00 AM EDT Laboratory Lab Mobile Phlebotomy [facility] [address] [facility] [place], [place] [address] [facility], [facility] Mobile Home Draw [address] [facility] [place] [address] 07/18/2024 7:00 AM EDT Laboratory Lab Mobile Phlebotomy [facility] [address] [facility] [place], [place] [address] [facility], [facility] Mobile Home Draw [address] [facility] [place] [address] 08/01/2024 7:00 AM EDT Laboratory Lab Mobile Phlebotomy [facility] [address] [place] [address] [facility], [facility] Mobile Home Draw [address] [place], [place] [address] 08/13/2024 8:00 AM EDT Office Visit Cardiology, [facility] [address] [place] [address] Dominick Benz, [address] [place] [address] 08/15/2024 7:00 AM EDT Laboratory Lab Mobile Phlebotomy [facility] [address] [place] [address] [facility], [facility] Mobile Home Draw [address] [employer] [place], [place] [address] 08/29/2024 7:00 AM EST Laboratory Lab Mobile Phlebotomy [facility] [address] [place] [address] [facility], [facility] Mobile Home Draw [address] [employer] [place], [place] [address] 08/29/2024 8:00 AM EST Hospital Encounter ENDO OSS[facility], Endoscopy Room [facility] [address] [place] [phone] Arnie Shrestha MD [address] [place] [address] 08/29/2024 8:00 AM EST - 08/29/2024 8:30 AM EST Surgery ENDO OSSC, Endoscopy Room [facility] [address] [place] [phone] Arnie Shrestha MD [address] [place] [address] COLONOSCOPY FLEXIBLE PROXIMAL DIAGNOSTIC 09/02/2024 1:45 PM EST Office Visit Dermatology Melissa La [place] [address] [facility] [place] [address] Osvaldo Liu MD [address] [facility] [place] [address] 09/12/2024 7:00 AM EST Laboratory Lab Mobile Phlebotomy [facility] [address] [facility] [place] [address] [facility], [facility] Mobile Home Draw [address] [facility] [place] [address] 09/17/2024 11:15 AM EST Office Visit Urology, [facility] [address] [facility] [place] [address] Kalpesh Funes MD [address] [place] [address] 09/26/2024 7:00 AM EST Laboratory Lab Mobile Phlebotomy [facility] [address] [facility] [place] [address] [facility], [facility] Mobile Home Draw [address] [facility] [place] [address] 03/12/2025 3:30 PM EDT Home Visit Care at Home [address] [place] [address] Betina Jacob PA-C [address], [place] [id number] Scheduled Procedures Name Priority Associated Diagnoses Date/Ti me COLONOSCOPY FLEXIBLE PROXIMAL DIAGNOSTIC Special screening for malignant neoplasms, colon 08/29/2024 8:00 AM EST Health Maintenance Due Date Last Done Comments Diabetic Foot Exam 03/27/2021 03/27/2020, 08/23/2018 COVID-19 Vaccine ( season) 2023 11/03/2021, 12/19/2020, 12/19/2020, Additional history exists HbA1c 10/12/2023 04/12/2023, 03/0 03/2023, 03/22/2022, Additional history exists Diabetic Eye Exam 11/01/2023 11/01/2022, , 11/01/2022, Additional history exists Albumin/Creatinine Ratio 12/27/2023 023, 03/08/2019, 04/09/2014 Influenza Vaccine (FLU shot) (#1) 2024 08/02/2023, 07/13/2022, 07/23/2021, Additional history exists GFR 10/19/2024 04/19/2024, 03/24, 03/28/2024, Additional history exists CKD PHOS USE SMARTSET 04822 12/07/202411/23, 12/26/2022, 06/21/2021 Depression Screening 03/07/2025 03/07/2024 CKD HGB USE SMARTSET 39702 05/01/202505/01, 05/01/2024, 04/23/2024, Additional history exists DTaP,Tdap,and Td Vaccines (4 - Td or Tdap) 10/24/2029 10/24/2019, 10/24/2019, 11/03/2008, Additional history exists Pneumococcal Vaccine: 65+ Years Completed 04/27/2016, 08/27/2009 Zoster Vaccines Completed 10/24/2019, 11/2019, 07/31/2019, Additional history exists Colonoscopy Discontinued 10/18/2023, 09/23, 09/12/2022, Additional history exists HPV (Gardasil) Vaccine Aged Out No lo nger eligible based on patient's age to complete this topic Hepatitis B Vaccine Aged Out No longe r eligible based on patient's age to complete this topic MENINGOCOCCAL (MENACTRA/MENVEO) Aged Out No longer eligible based on patient's age to complete this topic documented as of this encounter Medical Devices Implanted Type Area Shoveler Device Identifier Shelf Expiration Date Model / Serial / Lot Lens Intraoc 22.5 - [id number] - [id number] Implanted:Qty: 1 on 05/22/2018 by Jasbir Maurer MD at OR [facility] Right: Eye [employer] 11/22/2022 [id number] / [id number] / [id number] Lens Intraoc 21.0 - [id number] - [id number] Implanted:Qty: 1 on 06/05/2018 by Jasbir Maurer MD at OR [facility] Left: Eye [employer] 12/20/2022 [id number] / [id number] / Duraclip 16mm Xlg Repostn - [id number] Implanted:Qty: 1 on 04/12/2024 by Edilberto Lujan MD at OR [facility] [employer] [id number] 12/08/2024 [id number] / / [id number] Duraclip 16mm Xlg Repostn - [id number] Implanted:Qty: 1 on 04/12/2024 by Edilberto Lujan MD at OR [facility] [employer] [id number] 12/08/2024 [id number] / / [id number] Duraclip 16mm Xlg Repostn - [id number] Implanted:Qty: 1 on 04/12/2024 by Edilberto Lujan MD at OR [facility] [employer] [id number] 12/08/2024 [id number] / / [id number] documented as of this encounter Additional Health Concerns Infection Onset Date Last Indicated Resolved Time Gastrointestinal Rule-Out 05/02/2024 05/02/2024 10:08 AM EDT C. difficile 05/02/2024 05/02/2024 documented as of this encounter Advance Directives * Full Code (Latest Code Status on File) Date Activated Date Inactivated Comments 06/05/2018 10:29 AM 06/05/2018 4:37 PM This order reflects the patients wishes and were consensually agreed upon. * Full Code Date Activated Date Inactivated Comments 05/22/2018 10:46 AM 05/22/2018 5:28 PM This order reflects the patients wishes and were consensually agreed upon. Healthcare Agents on File Name Relationship Healthcare Agent Relationshi p Communication Ashley Jose Spouse Health Care Power of Attor mayela Care Teams Vocational Rehabilitation Teacher Relationship Specialty Start Date End Date Michael Hinton MD [address] [place] [address] PCP - General Family Medicine 08/07/17 documented as of this encounter
--- OUTSIDE RECORDS SUMMARY | 2024-05-04 16:46 | External Medical Summary | Summary of Care ---
Author Name Unknown Organization [facility] Address [address] [place] [place] [address] Phone [phone] Care Team Providers Care Morphology Teacher Name Role Phone Michael Hinton MD Primary Care Provider [phone] Reason for Visit * Reason Onset Date Comments [facility]: Acute 05/03/2024 Encounter Details Date Type Department Care Team (Late st Contact Info) Description 05/03/2024 Telephone [facility], [facility] [address] [place] [address] [facility], Nurse [address] [place] [address] [facility]: Acute Allergies Active Allergy Reactions Criticality Noted Date Comments Fabiano Inhibitors Cough 06/09/2017 Carbidopa W-Levodopa 03/17/2021 Constipation Nsaids Rash 05/17/2018 Contraindicated 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 documented as of this encounter (statuses [...] mitral valve regurgitation,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,Stage 3b chronic kidney [...] Will place ref to assist with dressings History of [...] 07/28/2021 Last Assessment & Plan: Follows with [facility] hematology Routine labs monitored by hem/onc Update [...] scanned document from 11/13/[address] bains, [facility] [...] mRNA, LNP-s, No Pre serve, 2-Dose Series (Thermodynamic Process Control) 11/03/2021,12/19/2020,11/28/2020 Covid-19 Ad26, Single Dose (Soy/J&J) 12/19/2020,11/28/2020 [...] Telephone Encounter - Dixie Mera RN - 05/03/2024 1:26 PM EDT Outgoing call to Ashley and notified her of duplex study appt for the pt today at [facility]. She is aware and will take the pt to this appt. Dixie PRINCE RN [facility] Intake Triage Coordinator [phone] * Telephone Encounter - Dixie Mera RN - 05/03/2024 12:15 PM EDT Received TT from [facility] operating room scheduler Gallo Padgett: "Please let Elton know juan tried calling [facility] and systems are down" TT to Jules Jain PA-C re: above. His reply: "Then we need ED" Outgoing call to the pt's Ashley and notified her of same. Ashley states "oh, no he won't go to the ED, he just won't, he will refuse to go". Ashley states that she can drive the pt to [facility] for the imaging if they can get it scheduledthere. Advised Ashley to speak with the pt and let him know that if [facility] is not able to schedule the imagingstudy to be done stat today then it is imperative for the pt to be seen in the ED in order for the testing to be done today in order to rule out a DVT. Ashley states that the pt becomes easily agitated and she will speak with the pt herself. Instructed Ashley to call [facility] either way to let us know if the pt is willing to go to the ED or not. She states that she will. Dixie PRINCE, KARLA [facility] Intake Triage Coordinator [phone] * Telephone Encounter - Dixie Mera RN - 05/03/2024 11:01 AM EDT Received orders from Jules Jain PA-C. Outgoing call to Ashley and notified her of the stat order for vasc duplex study. There are no mobile providers to complete this in the pt's home. Ashley states that she will be able to get the pt out to an appt. The pt did have this study in January in [facility]. Sent HP TT to [facility] operating room scheduler in the TT role. Notified Ashley that as soon as we get the result of the study we will make her aware. Ashley verbalized understanding of same. 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 Nursing Assessment: Patient's chief complaint for this call: Edema The pt's states that last night the pt c/o severe pain in the back of his right calf. He woke up to take Tylenol. The home health nurse is there now and is concerned and told her to call [facility] about this new symptom. Spoke directly with Wilfredo who states that this is new pain for the pt. The pain is localized to theposterior right calf. The right calf has 4+ edema today which is a significant increase from what it has been The LLE has 2+ edema. Wilfredo states that the RLE does not look like it has cellulitis. TheRLE is not hot, it is not red, it is not inflamed. The pt does have wounds on the anterior right lower leg but they are scabbed and are closing and healing well. Wilfredo will reapply the dressing as the pt did have a lot of drainage. He will apply aquacel, non adherent gauze, kerlix and tubigrip. Ashley states that the pt does not walk much, does not get much exercise. He does keep his BLE elevated. BP 148/70. He will start vancomycin today for the +Cdiff. Ashley has been instructed on good hand washing- she states that Wilfredo discussed with her already today. Pain Has pain Pain level: 10 Location: posterior right calf Quality of Pain: throbbing Does the pain radiate: No Baseline Assessment Able to performing ADLs at baseline (walking, daily tasks, etc.): No Chief Complaint is related to a chronic condition: No Patient prescribed oxygen? No Patient has been ordered DME equipment (assistive devices, respiratory equipment, etc.): Unknown Medication Reconciliation: (See medication list) Taking medication as ordered: Yes Medications ordered/taking to treat reason for call: Yes, PRN medication(s) Tylenol Heart failure symptoms: No COPD exacerbation symptoms: No Reinforcement Education: Continue to take all medications as prescribed Tylenol as needed for pain- follow package directions Keep BLE elevated Do not massage RLE Monitor for worsening symptoms to report: fever, chills, cough, SOB, redness, heat or red streaks to RLE, increased pain, increased edema Treatment/Plan: (need to report) Level of call: Acute Appointment scheduled for same day: No- will inquire with [facility] if acute HV is warranted Provider Name: - Treatment plan until appointment: as above Will send to [facility] for orders/ recommendations and inquire if pt requires imaging studies Scheduled 24/48 hr f/u calls Call back instructions provided to patient. Dixie PRINCE, RN [facility] Intake Triage Coordinator [phone] documented in this encounter Plan of Treatment Upcoming Encounters Date Type Department Care Team (Late st Contact Info) Description 05/03/2024 3:00 PM EDT Imaging Vascular Lab, [facility] 2nd [facility] [address] [facility] [place] [address] 05/04/2024 10:00 AM EDT Scheduled Telephone [facility], [address] [place] [address] [facility], Nurse [address] [place] [address] 05/05/2024 9:45 AM EDT Scheduled Telephone [facility], [address] [place] [address] [facility], Nurse [facility] 132 [facility] [place] [address] 05/08/2024 2:30 PM EDT Telemedicine [facility], [facility] [address] [place] [address] Berny Power PA-C 132 [facility] [place] [address] Meri Mae, Community Health Line [place]ester [place] [address] 05/09/2024 7:00 AM EDT Laboratory Lab Mobile Phlebotomy [facility] [address] [place] [place] [address] [facility], [facility] [address] [place] [place] [address] 05/23/2024 7:00 AM EDT Laboratory Lab Mobile Phlebotomy [facility] [address] [place] [place] [address] [facility], [facility] [address] [facility] [place] [address] 05/31/2024 10:00 AM EDT Home Visit [facility], [facility] 132 [facility] [place] [address] Peggy De RN 132 [facility] [place] [address] 06/06/2024 7:00 AM EDT Laboratory Lab Mobile Phlebotomy [facility] [address] [facility] [place] [address] [facility], [facility] [address] [facility] [place] [address] 06/20/2024 7:00 AM EDT Laboratory Lab Mobile Phlebotomy [facility] [address] [facility] [place], [place] [address] [facility], [facility] [address] [facility] [place] [address] 07/04/2024 7:00 AM EDT Laboratory Lab Mobile Phlebotomy [facility] [address] [facility] [place] [address] [facility], [facility] [address] [facility] [place] [address] 07/18/2024 7:00 AM EDT Laboratory Lab Mobile Phlebotomy [facility] [address] [facility] [place] [address] [facility], [facility] [address] [facility] [place] [address] 08/01/2024 7:00 AM EDT Laboratory Lab Mobile Phlebotomy [facility] [address] [facility] [place] [address] [facility], [facility] Draw [address] [place] [address] 08/13/2024 8:00 AM EDT Office Visit Cardiology, [facility] [address] [place] [address] Dominick Benz, [address] [place] [address] 08/15/2024 7:00 AM EDT Laboratory Lab Mobile Phlebotomy [facility] [address] [employer] [place] [address] [facility], [facility] Draw [address] [employer] [place], [place] [address] 08/29/2024 7:00 AM EST Laboratory Lab Mobile Phlebotomy [facility] [address] [employer] [place] [address] [facility], [facility] Draw [address] [employer] [place] [address] 08/29/2024 8:00 AM EST Hospital Encounter ENDO [facility], Endoscopy Room [facility] [address] [place] [id number] Arnie Shrestha MD [address] [place] [address] 08/29/2024 8:00 AM EST - 08/29/2024 8:30 AM EST Surgery ENDO [facility], Endoscopy Room [facility] [address] [place] [phone] Arnie Shrestha MD [address] [place] [address] COLONOSCOPY FLEXIBLE PROXIMAL DIAGNOSTIC 09/02/2024 1:45 PM EST Office Visit Dermatology [facility] [address] [facility] [place], [place] [address] Osvaldo Liu MD 200 [facility] [place] [address] 09/12/2024 7:00 AM EST Laboratory Lab Mobile Phlebotomy [facility] [address] [facility] [place] [address] [facility], [facility] Draw [address] [facility] [place] [address] 09/17/2024 11:15 AM EST Office Visit Urology, [facility] [address] [place] [address] Kalpesh Funes MD [address] [place] [address] 09/26/2024 7:00 AM EST Laboratory Lab Mobile Phlebotomy [facility] [address] [employer] [place] [address] [facility], [facility] Draw [address] [facility] [place] [address] 03/12/2025 3:30 PM EDT Home Visit Care at Home [address] [place] [address] Betina Jacob PA-C [address] [place] [address] Scheduled Orders Name Type Priority Associated Diagnoses Orde r Schedule VASC DUPLEX VENOUS LE UNILAT Medical Imaging STAT Right leg swelling Leg pain, posterior, right Ordered: 05/03/2024 Scheduled Procedures Name Priority Associated Diagnoses Date/Ti [...] Additional history exists CKD PHOS USE SMARTSET 89280 12/07/202411/23, 12/26/2022, 06/21/2021 Depression Screening 03/07/2025 03/07/2024 CKD HGB USE SMARTSET 60195 05/01/202505/01, 05/01/2024, 04/23/2024, Additional history exists DTaP,Tdap,and [...] this encounter Medical Devices Implanted Type Area Cable Rigger Device Identifier Shelf Expiration Date Model / Serial / Lot Lens Intraoc 22.5 - [id number] - [id number] Implanted:Qty: 1 on 05/22/2018 by Jasbir Maurer MD at OR [facility] Right: Eye [employer] 11/22/2022 [id number] / [id number] / [id number] Lens Intraoc 21.0 - [id number] - [id number] Implanted:Qty: 1 on 06/05/2018 by Jasbir Maurer MD at OR [facility] Left: Eye [employer]OM[employer] 12/20/2022 [id number] / [id number] / Duraclip 16mm Xlg Repostn - [id number] Implanted:Qty: 1 on 04/12/2024 by Edilberto Lujan MD at OR [facility] [employer] [id number] 12/08/2024 [id number] / / [id number] Duraclip 16mm Xlg Repostn - [id number] Implanted:Qty: 1 on 04/12/2024 by Edilberto Lujan MD at OR [facility] [employer] [id number] 12/08/2024 [id number] / / [id number] Duraclip 16mm Xlg Repostn - [id number] Implanted:Qty: 1 on 04/12/2024 by Edilberto Lujan MD at OR [facility] [employer] [id number] 12/08/2024 [id number] / / [id number] documented as of this encounter Visit Diagnoses Diagnosis Right leg swelling- Primary Leg pain, posterior, right Special screening for malignant neoplasms, colon documented in this encounter Additional Health Concerns Infection Onset [...] Agents on File Name Relationship [facility] Ashley Jose Spouse Health Care Power of Attor mayela Care Teams Morphology Teacher Relationship Specialty Start Date End Date Michael Hinton MD [address] [place] [address] PCP - General Family Medicine 08/07/17 documented as of this encounter
--- OUTSIDE RECORDS SUMMARY | 2024-05-04 16:46 | External Medical Summary | Summary of Care ---
Author Name Unknown Organization [facility] Address [address] [place] [address] Phone [phone] Care Team Providers Care Ground Source Heat Pump Technician Name Role Phone Michael Hinton MD Primary Care Provider [phone] Reason for Visit * Reason Onset Date Comments [facility]: Maintenance 05/04/2024 Encounter Details Date Type Department Care Team (Late st Contact Info) Description 05/04/2024 10:00 AM EDT Scheduled Telephone [facility], [facility] 132 [place] [address] [facility], Nurse [facility] 132 [place] [address] Allergies Active Allergy Reactions Criticality Noted Date Comments Fabiano Inhibitors Cough 06/09/2017 Carbidopa W-Levodopa 03/17/2021 Constipation Nsaids Rash 05/17/2018 Contraindicated per commercial diver documented as of this encounter (statuses as of 05/04/2024) Medications Medication Sig Dispensed Refills Start Date End Date Status Glucose Blood (ONETOUCH VERIO) STRPIndications:Typ e 2 diabetes mellitus with hemoglobin A1c goal of less than 8.0% ([facility]) Use up to 4 times a [...] artery of citizen potawatomi heart without angina pectoris,Stage 3b chronic kidney [...] as of this encounter (statuses as of 05/04/2024) Active Problems Problem Noted Date Diagnosed Date [...] 07/28/2021 Last Assessment & Plan: Follows with [place] hematology Routine labs monitored by hem/onc Update [...] as of this encounter (statuses as of 05/04/2024) Resolved Problems Problem Noted Date Diagnosed Date [...] as of this encounter (statuses as of 05/04/2024) Immunizations Name Administration Dates Next Due COVID-19 mRNA, LNP-s, No Pre serve, 2-Dose Series (Sharely.Us) 11/03/2021,12/19/2020,11/28/2020 Covid-19 Ad26, Single Dose (Soy/J&J) 12/19/2020,11/28/2020 [...] Miscellaneous Notes * Telephone Encounter - Katherine Lamar, RN - 05/04/2024 10:46 AM EDT Jesus Jose is scheduled for a call this day to follow up on RLE severe pain and edema. Spousecontacted [place] acutely yesterday- reporting severe pain in the back of his right calf. Home health nurse was present and reported +4 edema, which is a significant increase. Denied redness or heat of leg. Has chronic wounds of RLE. Provider placed order for doppler of RLE. [facility]; provider then recommended ED; pt declined ED; they then were able to schedule study at [facility]. Venous vascular duplex was completed on RLE and results noted in the chart, impression as follows: "IMPRESSION: Right lower extremity with no evidence of acute deep venous thrombosis." Called and spoke to spouse Ashley. States he is still in a lot of pain, right calf, the whole way down to his ankle. Leg is wrapped because has open sores. Denies any color change of his toes. Reportsincreased seeping of LLE for serous draiange. Reports RLE still with increased edema. Denies increased edema of LLE. She reports he is having a hard time getting up and almost fell yesterday due to the leg pain. She is not able to state how long he has had this pain, states "he doesn't tell me anything." He does not weigh, he is not able to stand on a scale. Also notes ongoing diarrhea due to c diff, just started vanco yesterday for treatment of same. While we are on the phone she states he just had diarrhea all over and she has to go clean him up, but she asks if he needs to be hospitalized.Instructed that he can continue treatment at home but need to make us aware if he has increased abdominal pain, unable to tolerate food/ fluids PO, or any fever/ chills. She verbalizes understanding. embraase message was sent to extrusion technician provider Dr. Ceron with update on spouses call reports and for recommendations. Per Dr. Ceron- Needs to be physically evaluated. Needs physical exam. Vitalsigns. Contacted patient, spoke to daughter. Made aware. They are appreciative of a visit. Hamer connect message to Yonatan Rooney RN and made aware of same. There is a follow up call scheduled for tomorrow. Will add call for Monday as well. Katherine Lamar RN, BSN Telescope Maintenance [facility] documented in this encounter Plan of Treatment Upcoming Encounters Date Type Department Care Team (Late st Contact Info) Description 05/04/2024 3:15 PM EDT Home Visit [facility], [address] [place] [address] [facility], Nurse [address] [place] [address] 05/05/2024 9:45 AM EDT Scheduled Telephone [facility], [place] [address] [address] [place] [address] [facility], Nurse [address] [place] [address] 05/06/2024 9:15 AM EDT Scheduled Telephone [facility], [address] [place] [address] Coordinator, [address] [place] [address] 05/08/2024 2:30 PM EDT Telemedicine [facility], [facility] [address] [place] [address] Berny Power PA-C [address] [place] [address] Meri Mae, Community Health Art Therapist [facility] [place] [facility] [address] 05/09/2024 7:00 AM EDT Laboratory Lab Mobile Phlebotomy [facility] [address] [place] [address] [facility], [facility] Draw [address] [place], [place] [address] 05/23/2024 7:00 AM EDT Laboratory Lab Mobile Phlebotomy [facility] [address] [place] [address] [facility], [facility] Draw [address] [facility] [place], [place] [address] 05/31/2024 10:00 AM EDT [facility] 132 [facility] [place] [address] Peggy De RN 132 [facility] [place] [address] 06/06/2024 7:00 AM EDT Laboratory Lab Mobile Phlebotomy [facility] [address] [place], [place] [address] [facility], [facility] Draw [address] [facility] [place] [address] 06/20/2024 7:00 AM EDT Laboratory Lab Mobile Phlebotomy [facility] [address] [place] [address] [facility], [facility] Draw [address] [place], [place] [address] 07/04/2024 7:00 AM EDT Laboratory Lab Mobile Phlebotomy [facility] [address] [place] [address] [address] [facility], [facility] Draw [address] [facility] [address] [place], [place] [address] 07/18/2024 7:00 AM EDT Laboratory Lab Mobile Phlebotomy [facility] [address], [place] [address] [facility], [facility] Draw [address] [place] [address] 08/01/2024 7:00 AM EDT Laboratory Lab Mobile Phlebotomy [facility] [address] [place] [address] [place], [place] [address] [facility], [facility] Draw [address] [facility] [place], [place] [address] 08/13/2024 8:00 AM EDT Office Visit Cardiology, [facility] [address] [place] [address] Dominick Benz DO [address] [place] [address] 08/15/2024 7:00 AM EDT Laboratory Lab Mobile Phlebotomy [facility] [address] [place] [address] [facility], [facility] Draw [address] [facility] [place], [place] [address] 08/29/2024 7:00 AM EST Laboratory Lab Mobile Phlebotomy [facility] [address] [facility] [place], [place] [address] [facility], [facility] Home Draw [address] [facility] [place] [address] 08/29/2024 8:00 AM EST Hospital Encounter ENDO [facility], Endoscopy Room [facility] [address] [place] [phone] Arnie Shrestha MD [address] [place] [address] 08/29/2024 8:00 AM EST - 08/29/2024 8:30 AM EST Surgery ENDO [facility], Endoscopy Room [facility] [address] [place] [phone] Arnie Shrestha MD [address] [place] [address] COLONOSCOPY FLEXIBLE PROXIMAL DIAGNOSTIC 09/02/2024 1:45 PM EST Office Visit Dermatology [facility] 200 [facility] [place], [place] [address] Osvaldo Liu MD 200 [facility] [place] [address] 09/12/2024 7:00 AM EST Laboratory Lab Mobile Phlebotomy [facility] [address] [facility] [place] [address] [facility], [facility] Draw [address] [facility] [place] [address] 09/17/2024 11:15 AM EST Office Visit Urology, [facility] [address] [facility] [place] [address] Kalpesh Funes MD [address] [place] [address] 09/26/2024 7:00 AM EST Laboratory Lab Mobile Phlebotomy [facility] [address] [facility] [place] [address] [facility], [facility] Draw [address] [facility] [place] [address] 03/12/2025 3:30 PM EDT Home Visit [facility] at Home [address] [place], [place] [id number] Betina Jacob PA-C [address] [place], [place] [address] Scheduled Procedures Name Priority Associated Diagnoses Date/Ti [...] Additional history exists CKD PHOS USE SMARTSET 29971 12/07/202411/23, 12/26/2022, 06/21/2021 Depression Screening 03/07/2025 03/07/2024 CKD HGB USE SMARTSET 61630 05/01/202505/01, 05/01/2024, 04/23/2024, Additional history exists DTaP,Tdap,and [...] this encounter Medical Devices Implanted Type Area Metal Mover Device Identifier Shelf Expiration Date Model / Serial / Lot Lens Intraoc 22.5 - [id number] - [id number] Implanted:Qty: 1 on 05/22/2018 by Jasbir Maurer MD at OR [facility] Right: Eye [employer] 11/22/2022 [id number] / [id number] / [id number] Lens Intraoc 21.0 - [id number] - [id number] Implanted:Qty: 1 on 06/05/2018 by Jasbir Maurer MD at OR [facility] Left: Eye [employer]OMB 12/20/2022 [id number] / [id number] / Duraclip 16mm Xlg Repostn - [id number] Implanted:Qty: 1 on 04/12/2024 by Edilberto Lujan MD at OR [facility] [employer]ACH[employer] [id number] 12/08/2024 [id number] / / [id number] Duraclip 16mm Xlg Repostn - [id number] Implanted:Qty: 1 on 04/12/2024 by Edilberto Lujan MD at OR [facility] [employer]ACHO [id number] 12/08/2024 [id number] / / [id number] Duraclip 16mm Xlg Repostn - [id number] Implanted:Qty: 1 on 04/12/2024 by Edilberto Lujan MD at OR [facility] [employer] [id number] 12/08/2024 [id number] / / [id number] documented as of this encounter Additional Health Concerns Infection Onset Date Last Indicated Resolved Time C. difficile 05/02/2024 05/02/2024 documented as of [...] Care Power of Attor mayela Care Teams Ground Source Heat Pump Technician Relationship Specialty Start Date End Date Michael Hinton MD [address] [place] [address] PCP - General Family Medicine 08/07/17 documented as of this encounter
--- OUTSIDE RECORDS SUMMARY | 2024-05-04 16:47 | External Medical Summary | Summary of Care ---
Author Name Unknown Organization [facility] Address [address] [place] [place] [address] Phone [phone] Care Team Providers Care Refuge Worker Name Role Phone Michael Hinton MD Primary Care Provider [phone] Reason for Visit * Reason Onset Date Comments [facility]: Acute 05/03/2024 Encounter Details Date Type Department Care Team (Late st Contact Info) Description 05/03/2024 Telephone [facility], [facility] [address] [place] [address] [facility], Nurse [address] [place] [address] [facility]: Acute Allergies Active Allergy Reactions Criticality Noted Date Comments Fabiano Inhibitors Cough 06/09/2017 Carbidopa W-Levodopa 03/17/2021 Constipation Nsaids Rash 05/17/2018 Contraindicated per mica miner blasting documented as of this encounter (statuses as [...] mitral valve regurgitation,Coron daniel artery disease involving [place] coronary artery of [place] heart without angina pectoris,Stage 3b chronic kidney [...] knees 03/21/2018 Coronary artery disease invo lving [place] coronary artery of [place] heart without angina pectoris 03/21/2018 Last Assessment & Plan: Stable, Continue metoprolo, atorvastatin No ASA d/t history severe anemia--GI bleeding? Cervical spinal stenosis 08/18/2017 FABIANO (generalized anxiety disorder) 08/18/2017 Last Assessment & Plan: Symptoms stable -continue Lexapro Primary parkinsonism 08/18/2017 Last Assessment & Plan: -Continue amantadine Followed by Dr. 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y [...] mRNA, LNP-s, No Pre serve, 2-Dose Series (Furious) 11/03/2021,12/19/2020,11/28/2020 Covid-19 Ad26, Single Dose (Soy/J&J) 12/19/2020,11/28/2020 [...] as of this encounter Miscellaneous Notes * Addendum Note - Gil Jain PA-C [...] Mera RN - 05/03/2024 10:00 AM EDT [facility] at Home research leader Acute Call Date: 05/03/2024 Time: 10:03 AM Name: Jesus Jose : 1945 Caller: Ashley Relationship to pt- Chief Complaint Patient presents with [employer] [facility]: Acute HPI: Jesus Jose is a 79 year old male whose is calling [employer] [facility] Intake to report that the [...] is concerned and told her to call [facility] about this new symptom. Spoke directly with [...] for same day: No- will inquire with [facility] if acute HV is warranted Provider Name: - Treatment plan until appointment: as above Will send to [facility] for orders/ recommendations and inquire if pt requires imaging studies Scheduled 24/48 hr f/u calls Call back instructions provided to patient. Dixie PRINCE, RN [facility] Intake Triage Coordinator [phone] documented in this encounter Plan of Treatment Upcoming Encounters Date Type Department Care Team (Late st Contact Info) Description 05/04/2024 10:00 AM EDT Scheduled Telephone [facility], [facility] [address] [place] [address] [facility], Nurse [facility] [address] [place], [place] [address] 05/05/2024 9:45 AM EDT Scheduled Telephone [facility], [place] [address] [place] [address] [facility], Nurse [facility] [address] [place] [address] 05/08/2024 2:30 PM EDT Telemedicine [facility], [facility] [address] [place] [address] Berny Pwoer PA-C [address] [place] [address] Meri Mae, Community Health Chemistry Department Chair [address] [place] [address] 05/09/2024 7:00 AM EDT [facility] [address] [place] [address] [facility] [address] [place] [address] 05/23/2024 7:00 AM EDT [facility] [address] [place] [address] [facility] [address] [place] [address] 05/31/2024 10:00 AM EDT Home Visit [facility], [facility] 132 [facility] [place] [address] Peggy De, RN [address] [place] [address] 06/06/2024 7:00 AM EDT [facility] [address] [place] [address] [facility] [address] [facility] [place] [address] 06/20/2024 7:00 AM EDT [facility] [address] [facility] [place] [address] [facility] [address] [facility] [place] [address] 07/04/2024 7:00 AM EDT [facility] [address] [facility] [place] [address] [facility] [address] [facility] [place] [address] 07/18/2024 7:00 AM EDT [facility] [address] [facility] [facility] [place], [place] [address] [facility], [facility] [address] [place] [address] 08/01/2024 7:00 AM EDT Laboratory [facility] [address] [facility] [place], [place] [address] [facility], [facility] [address] [facility] [place] [address] 08/13/2024 8:00 AM EDT Office Visit Cardiology, [facility] [address] [place] [address] Dominick Benz, DO [address] [place] [address] 08/15/2024 7:00 AM EDT Laboratory [facility] [address] [facility] [place], [place] [address] [facility], [facility] [address] [place] [address] 08/29/2024 7:00 AM EST [facility] [address] [facility] [place], [place] [address] [facility], [facility] [address] [facility] [place] [address] 08/29/2024 8:00 AM EST Hospital Encounter ENDO OSS, Endoscopy Room [facility] [address] [place] [address] Arnie Shrestha MD [address] [place] [address] 08/29/2024 8:00 AM EST - 08/29/2024 8:30 AM EST Surgery ENDO OSS, Endoscopy Room [facility] [address] [place] [phone] Arnie Shrestha MD [address] [place] [address] COLONOSCOPY FLEXIBLE PROXIMAL DIAGNOSTIC 09/02/2024 1:45 PM EST Office Visit Dermatology [facility] 200 [facility] [place] [address] Osvaldo Liu MD 200 [facility] [place] [address] 09/12/2024 7:00 AM EST Laboratory [facility] [address] [facility] [place] [address] [facility], [facility] 25[address] [facility] [place] [address] 09/17/2024 11:15 AM EST Office Visit Urology, [facility] [address] [place] [address] Kalpesh Funes MD [address] [place] [address] 09/26/2024 7:00 AM EST Laboratory [facility] [address] [facility] [place] [address] [facility], [facility] [address] [place], [place] [address] 03/12/2025 3:30 PM EDT Home Visit Care at Home [address] [facility] [place] [address] Betina Jacob PA-C [address] [facility] [place] [address] Scheduled Orders Name Type Priority Associated Diagnoses [...] Additional history exists CKD PHOS USE SMARTSET 44185 12/07/202411/23, 12/26/2022, 06/21/2021 Depression Screening 03/07/2025 03/07/2024 CKD HGB USE SMARTSET 11399 05/01/202505/01, 05/01/2024, 04/23/2024, Additional history exists DTaP,Tdap,and [...] this encounter Medical Devices Implanted Type Area Naturopathic Physician Device Identifier Shelf Expiration Date Model / Serial / Lot Lens Intraoc 22.5 - [id number] - [id number] Implanted:Qty: 1 on 05/22/2018 by Jasbir Maurer MD at OR [facility] Right: Eye BAUSCH [employer] LOMB 11/22/2022 [id number] / [id number] / [id number] Lens Intraoc 21.0 - [id number] - [id number] Implanted:Qty: 1 on 06/05/2018 by Jasbir Maurer MD at OR [facility] Left: Eye BAUSCH & LOMB 12/20/2022 [id number] / [id number] / Duraclip 16mm Xlg Repostn - [id number] Implanted:Qty: 1 on 04/12/2024 by Edilberto Lujan MD at OR [facility] [employer] NACHO [id number] 12/08/2024 [id number] / / [id number] Duraclip 16mm Xlg Repostn - [id number] Implanted:Qty: 1 on 04/12/2024 by Edilberto Lujan MD at OR [facility] [employer]ACH[employer] [id number] 12/08/2024 [id number] / / [id number] Duraclip 16mm Xlg Repostn - [id number] Implanted:Qty: 1 on 04/12/2024 by Edilberto Lujan MD at OR [facility] [employer] [facility] [id number] 12/08/2024 [id number] / / [id number] documented as of this encounter Visit Diagnoses [...] Jose Spouse Health Care Power of Attor pelican Care Teams Refuge Worker Relationship Specialty Start Date End Date Michael Hinton MD [address] [place] [address] PCP - General Family Medicine 08/07/17 documented as of this encounter
--- OUTSIDE RECORDS SUMMARY | 2024-05-04 16:47 | External Medical Summary | Summary of Care ---
Author Name Unknown Organization [facility] Address [address] [place] [address] Phone [phone] Care Team Providers Care Dukey Rider Name Role Phone Michael Hinton MD Primary Care Provider [phone] Reason for Visit * Reason Onset Date Comments Appointment 05/03/2024 Encounter Details Date Type Department Care Team (Late st Contact Info) Description 05/03/2024 Telephone [facility], [facility] [address] [facility] [place] [address] [employer] [address] [place] [address] Appointment (/) Allergies Active Allergy Reactions Criticality Noted Date Comments Fabiano Inhibitors Cough 06/09/2017 Carbidopa W-Levodopa 03/17/2021 Constipation Nsaids Rash 05/17/2018 Contraindicated per pouncing lathe operator documented as of this encounter (statuses [...] mitral valve regurgitation,Coron daniel artery disease involving [place] coronary artery of [place] heart without angina pectoris,Stage 3b chronic kidney [...] knees 03/21/2018 Coronary artery disease invo lving [place] coronary artery of [place] heart without angina pectoris 03/21/2018 Last Assessment [...] mRNA, LNP-s, No Pre serve, 2-Dose Series (Wordster) 11/03/2021,12/19/2020,11/28/2020 Covid-19 Ad26, Single Dose (Soy/J&J) 12/19/2020,11/28/2020 [...] Miscellaneous Notes * Telephone Encounter - Magy Padgett OSA - 05/03/2024 1:05 PM EDT Per Request via TT Dixie Catalan she advised to call Georges to schedule Xray to be done today... Called s/w pt Nati she advised she can schedule appt today at 2:30... Called lmom to confirm [place] xray at 2:30pm 05/03. documented in this encounter Plan of Treatment Upcoming Encounters Date Type Department Care Team (Late st Contact Info) Description 05/03/2024 3:00 PM EDT Imaging Vascular Lab, [facility] 2nd [facility] 132 [facility] [place] [address] 05/04/2024 10:00 AM EDT Scheduled Telephone [facility], [address] [place] [address] [facility], Nurse [facility] [address] [facility] [place] [address] 05/05/2024 9:45 AM EDT Scheduled Telephone [facility], [address] [place] [address] [facility], Nurse [facility] 132 [facility] [place] [address] 05/08/2024 2:30 PM EDT Telemedicine [facility], [facility] [address] [place] [address] Berny Power PA-C [address] [place] [address] Meri Mae, Community Health Kid Club Attendant [address] [place] [address] 05/09/2024 7:00 AM EDT Laboratory [facility] [address] [place] [address] [facility], [facility] [address] [place], [place] [address] 05/23/2024 7:00 AM EDT [facility] [address] [place], [place] [address] [facility], [facility] [address] [place] [address] 05/31/2024 10:00 AM EDT Home Visit [facility], [facility] 132 [facility] [place] [address] Peggy De RN 132 [facility] [place] [address] 06/06/2024 7:00 AM EDT Laboratory [facility] [address] [place], [place] [address] [facility], [facility] [address] [facility] [place] [address] 06/20/2024 7:00 AM EDT Laboratory [facility] [address] [place], [place] [address] [facility], [facility] [address] [facility] [place] [address] 07/04/2024 7:00 AM EDT Laboratory [facility] [address] [place] [address] [facility], [facility] [address] [facility] [place] [address] 07/18/2024 7:00 AM EDT Laboratory [facility] [address] [place], [place] [address] [facility], [facility] [address] [place] [address] 08/01/2024 7:00 AM EDT [facility] [address] [place] [address] [facility], [facility] [address] [place] [address] 08/13/2024 8:00 AM EDT Office Visit Cardiology, [facility] [address] [place] [address] Dominick Benz, [address] [place] [address] 08/15/2024 7:00 AM EDT Laboratory [facility] [address] [place] [address] [facility], [facility] [address] [place] [address] 08/29/2024 7:00 AM EST Laboratory [facility] [address] [place] [address] [facility], [facility] [address] [place], [place] [address] 08/29/2024 8:00 AM EST Hospital Encounter ENDO OSSC, Endoscopy Room [facility] [address] [place] [phone] Arnie Shrestha MD [address] [place] [address] 08/29/2024 8:00 AM EST - 08/29/2024 8:30 AM EST Surgery ENDO OSSC, Endoscopy Room [facility] [address] [place] [phone] Arnie Shrestha MD [address] [place] [address] COLONOSCOPY FLEXIBLE PROXIMAL DIAGNOSTIC 09/02/2024 1:45 PM EST Office Visit Dermatology [facility] 200 [facility] [place] [address] Osvaldo Liu MD 200 [facility] [place], [place] [address] 09/12/2024 7:00 AM EST Laboratory Lab [facility] [address] [facility] [place] [address] [facility], [facility] [address] [facility] [place] [address] 09/17/2024 11:15 AM EST Office Visit Urology, [facility] [address] [place] [address] Kalpesh Funes MD [address] [place] [address] 09/26/2024 7:00 AM EST Laboratory Lab [facility] [address] [facility] [place] [address] [facility], [facility] Draw 25[address] [facility] [place], [place] [address] 03/12/2025 3:30 PM EDT Home Visit Care at Home [address] [place] [address] Betina Jacob PA-C [address] [place], [place] [address] Scheduled Procedures Name Priority Associated Diagnoses Date/Ti [...] Additional history exists CKD PHOS USE SMARTSET 88694 12/07/202411/23, 12/26/2022, 06/21/2021 Depression Screening 03/07/2025 03/07/2024 CKD HGB USE SMARTSET 66494 05/01/202505/01, 05/01/2024, 04/23/2024, Additional history exists DTaP,Tdap,and [...] this encounter Medical Devices Implanted Type Area Fabric Worker Supervisor Device Identifier Shelf Expiration Date Model / Serial / Lot Lens Intraoc 22.5 - [id number] - [id number] Implanted:Qty: 1 on 05/22/2018 by Jasbir Maurer MD at [facility] Right: Eye BAUSCH [employer] LOMB 11/22/2022 [id number] / [id number] / [id number] Lens Intraoc 21.0 - [id number] - [id number] Implanted:Qty: 1 on 06/05/2018 by Jasbir Maurer MD at OR [facility] Left: Eye BAUSCH & LOMB 12/20/2022 [id number] / [id number] / Duraclip 16mm Xlg Repostn - [id number] Implanted:Qty: 1 on 04/12/2024 by Edilberto Lujan MD at OR [facility] [employer] [place]ACH[place] [id number] 12/08/2024 [id number] / / [id number] Duraclip 16mm Xlg Repostn - [id number] Implanted:Qty: 1 on 04/12/2024 by Edilberto Lujan MD at OR [facility] [employer] [id number] 12/08/2024 [id number] / / [id number] Duraclip 16mm Xlg Repostn - [id number] Implanted:Qty: 1 on 04/12/2024 by Edilberto Lujan MD at OR [facility] [employer] [id number] 12/08/2024 [id number] / / [id number] documented as of this encounter Additional Health [...] Care Power of Attor mayela Care Teams Dukey Rider Relationship Specialty Start Date End Date Michael Hinton MD [address] [place] [address] PCP - General Family Medicine 08/07/17 documented as of this encounter
--- OUTSIDE RECORDS SUMMARY | 2024-05-04 16:47 | External Medical Summary | Summary of Care ---
Author Name Unknown Organization [facility] Address [address] [place] [address] Phone [phone] Care Team Providers Care Associate Sales Representative Name Role Phone Michael Hinton MD Primary Care Provider [phone] Reason for Visit * Reason Onset Date Comments [facility]: Acute 05/03/2024 Encounter Details Date Type Department Care Team (Late st Contact Info) Description 05/03/2024 Telephone [facility], [facility] [address] [place] [address] [facility], Nurse [address] [place] [address] [facility]: Acute Allergies Active Allergy Reactions Criticality Noted Date Comments Fabiano Inhibitors Cough 06/09/2017 Carbidopa W-Levodopa 03/17/2021 Constipation Nsaids Rash 05/17/2018 Contraindicated per geek squad manager documented as of this encounter (statuses [...] mitral valve regurgitation,Coron daniel artery disease involving sioux coronary artery of sioux heart without angina pectoris,Stage 3b chronic kidney [...] knees 03/21/2018 Coronary artery disease invo lving sioux coronary artery of sioux heart without angina pectoris 03/21/2018 Last Assessment [...] scanned document from 11/13/[address] bains, [facility] [place]. Coronary artery disease due to calcified [...] mRNA, LNP-s, No Pre serve, 2-Dose Series (HelloNature) 11/03/2021,12/19/2020,11/28/2020 Covid-19 Ad26, Single Dose (Soy/J&J) 12/19/2020,11/28/2020 [...] on file Are you (or your family) rgabiel eless or worried that you might be [...] did have this study in January in [facility]. Sent HP TT to [facility] bore mill operator for plastic in the TT role. Notified Ashley that as soon as we get the result of the study we will make her aware. Ashley verbalized understanding of same. 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 Spoke directly [...] for same day: No- will inquire with [facility] if acute HV is warranted Provider Name: - Treatment plan until appointment: as above Will send to [facility] for orders/ recommendations and inquire if pt requires imaging studies Scheduled 24/48 hr f/u calls Call back instructions provided to patient. Dixie PRINCE, RN [facility] Intake Triage Coordinator [phone] documented in this encounter Plan of Treatment Upcoming Encounters Date Type Department Care Team (Late st Contact Info) Description 05/04/2024 10:00 AM EDT Scheduled Telephone [facility], [address] [place] [address] [facility], Nurse [address] [place] [address] 05/05/2024 9:45 AM EDT Scheduled Telephone [facility], [address] [place] [address] [facility], Nurse [address] [place] [address] 05/08/2024 2:30 PM EDT Telemedicine [facility], [facility] [address] [facility] [place] [address] Berny Power PA-C [address] [facility] [place] [address] Meri Mae, Community Health Web Development Consultant [address] [place] [address] 05/09/2024 7:00 AM EDT Laboratory Lab Mobile Phlebotomy [facility] [address] [place] [address] M[facility], [facility] Draw [address] [facility] [place] [address] 05/23/2024 7:00 AM EDT Laboratory Lab Mobile Phlebotomy [facility] [address] [facility] [place] [address] M[facility], G[facility] Draw [address] [facility] [place] [address] 05/31/2024 10:00 AM EDT Home Visit [facility], [facility] [address] [facility] [place] [address] Peggy De RN [address] [place] [address] 06/06/2024 7:00 AM EDT Laboratory Lab Mobile Phlebotomy [facility] [address] [facility] [place], [place] [address] Mvmg, Gml [facility] Home Draw [address] [place] [address] 06/20/2024 7:00 AM EDT Laboratory Lab Mobile Phlebotomy [facility] [address] [facility] [place], [place] [address] Mvmg, Gml Mobile Home Draw [address] [facility] [place] [address] 07/04/2024 7:00 AM EDT Laboratory Lab Mobile Phlebotomy [facility] [address] [facility] [place] [address] Mvmg, Gml Mobile Home Draw [address] [facility] [place] [address] 07/18/2024 7:00 AM EDT Laboratory Lab Mobile Phlebotomy [facility] [address] [facility] [place] [address] M[facility], Gml [facility] Draw [address] [facility] [place] [address] 08/01/2024 7:00 AM EDT Laboratory Lab Mobile Phlebotomy [facility] [address] [facility] [place] [address] Mvmg, Gml Mobile Home Draw [address] [place] [address] 08/13/2024 8:00 AM EDT Office Visit Cardiology, [facility] [address] [place] [address] Dominick Benz, [address] [place] [address] 08/15/2024 7:00 AM EDT Laboratory Lab Mobile Phlebotomy [facility] [address] [place] [address] Mvmg, Gml Mobile Home Draw [address] [place] [address] 08/29/2024 7:00 AM EST Laboratory Lab Mobile Phlebotomy [facility] [address] [place] [address] M[facility], Gml Mobile Home Draw [address] [place] [address] 08/29/2024 8:00 AM EST Hospital Encounter ENDO [facility], Endoscopy Room [facility] [address] [place] [id number] Arnie Shrestha MD [address] [place] [address] 08/29/2024 8:00 AM EST - 08/29/2024 8:30 AM EST Surgery ENDO [facility], Endoscopy Room [facility] [address] [place] [phone] Arnie Shrestha MD [address] [place] [address] COLONOSCOPY FLEXIBLE PROXIMAL DIAGNOSTIC 09/02/2024 1:45 PM EST Office Visit Dermatology [facility] [place] [address] [place] [address] Osvaldo Liu MD [address] [facility] [place] [address] 09/12/2024 7:00 AM EST Laboratory Lab Mobile Phlebotomy [facility] [address] [place] [employer] [place] [address] Mvmg, Gml Mobile Home Draw 25[address] [facility] [place] [address] 09/17/2024 11:15 AM EST Office Visit Urology, [facility] 132 [facility] [place] [address] Kalpesh Funes MD [address] [place] [address] 09/26/2024 7:00 AM EST Laboratory Lab Mobile Phlebotomy [facility] [address] [place] [address] Mvmg, Gml Mobile Home Draw 25[address] [facility] [place] [address] 03/12/2025 3:30 PM EDT Home Visit Care at Home [address] [place] [address] Betina Jacob PA-C [address] [place] [address] Scheduled Orders Name Type Priority Associated Diagnoses [...] Additional history exists CKD PHOS USE SMARTSET 30393 12/07/202411/23, 12/26/2022, 06/21/2021 Depression Screening 03/07/2025 03/07/2024 CKD HGB USE SMARTSET 41026 05/01/202505/01, 05/01/2024, 04/23/2024, Additional history exists DTaP,Tdap,and [...] this encounter Medical Devices Implanted Type Area Management Intern Device Identifier Shelf Expiration Date Model / Serial / Lot Lens Intraoc 22.5 - [id number] - [id number] Implanted:Qty: 1 on 05/22/2018 by Jasbir Maurer MD at [facility] Right: Eye [employer]OMB 11/22/2022 [id number] / [id number] / [id number] Lens Intraoc 21.0 - [id number] - [id number] Implanted:Qty: 1 on 06/05/2018 by Jasbir Maurer MD at OR [facility] Left: Eye [employer]CH [employer] LOMB 12/20/2022 [id number] / [id number] / Duraclip 16mm Xlg Repostn - [id number] Implanted:Qty: 1 on 04/12/2024 by Edilberto Lujan MD at OR [facility] MOMENTFACE SRO [id number] 12/08/2024 [id number] / / [id number] Duraclip 16mm Xlg Repostn - [id number] Implanted:Qty: 1 on 04/12/2024 by Edilberto Lujan MD at OR [facility] MOMENTFACE SRO [id number] 12/08/2024 [id number] / / [id number] Duraclip 16mm Xlg Repostn - [id number] Implanted:Qty: 1 on 04/12/2024 by Edilberto Lujan MD at OR [facility] MOMENTFACE SRO [id number] 12/08/2024 [id number] / / [id number] documented as of this encounter Visit Diagnoses [...] Agents on File Name Relationship Healthcare Agent [facility] p Communication Ashley Jose Spouse Health Care Power of Attor mayela Care Teams Associate Sales Representative Relationship Specialty Start Date End Date Michael Hinton MD [address] [place] [address] PCP - General Family Medicine 08/07/17 documented as of this encounter
--- OUTSIDE RECORDS SUMMARY | 2024-05-04 16:47 | External Medical Summary | Summary of Care ---
Author Name Unknown Organization [facility] Address [address] [place] [address] Phone [phone] Care Team Providers Care String Cutter Name Role Phone Michael Hinton MD Primary Care Provider [phone] Reason for Visit * Reason Comments Outpatient Testing Encounter Details Date Type Department Care Team (Late st Contact Info) Description 05/01/2024 10:10 AM EDT Laboratory Laboratory, [facility] [address] [place] [address] [facility] [address] [place] [address] Fatigue, unspecified type; Acute blood loss anemia; AVM (arteriovenous malformation) of small bowel, acquired; Diarrhea, unspecified type Allergies Active Allergy Reactions Criticality Noted Date Comments Fabiano Inhibitors Cough 06/09/2017 Carbidopa W-Levodopa 03/17/2021 Constipation Nsaids Rash 05/17/2018 Contraindicated per brasswind instrument repairer documented as of this encounter (statuses as of 05/02/2024) Medications Medication Sig Dispensed Refills Start Date [...] BREAK) 45 g 2 11/06/2023 5 Active Spacer/Aero-Holdin g Chambers Device Use with inhaler. 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,Stage 3b chronic kidney [...] MOUTH EVERY MORNING 90 Tablet 3 03/21/2023 Discontinue d(Refill) documented as of this encounter (statuses as of 05/02/2024) Active Problems Problem Noted Date Diagnosed Date [...] 07/28/2021 Last Assessment & Plan: Follows with [facility] hematology Routine labs monitored by hem/onc Update [...] knees 03/21/2018 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 03/21/2018 Last Assessment [...] as of this encounter (statuses as of 05/02/2024) Resolved Problems Problem Noted Date Diagnosed Date [...] as of this encounter (statuses as of 05/02/2024) Immunizations Name Administration Dates Next Due COVID-19 [...] Care Team (Late st Contact Info) Description 05/08/2024 2:30 PM EDT Telemedicine [facility], [facility] [address] [place] [address] Berny Power PA-C 132 [facility] [place] [address] Meri Mae, Community Health Field Gauger [address] [place] [address] 05/09/2024 7:00 AM EDT Laboratory Lab Mobile Phlebotomy [facility] [address] [place] [address] M[facility], Gml Mobile Home Draw [address] [place] [address] 05/23/2024 7:00 AM EDT Laboratory Lab Mobile Phlebotomy [facility] [address] [place] [address] Mvmg, Gml Mobile Home Draw [address] [place] [address] 05/31/2024 10:00 AM EDT Home Visit [facility], [facility] [address] [place] [address] Peggy De RN 132 [facility] [place] [address] 06/06/2024 7:00 AM EDT Laboratory Lab Mobile Phlebotomy [facility] [address] [place] [address] Mvmg, Gml Mobile Home Draw [address] [place] [address] 06/20/2024 7:00 AM EDT Laboratory Lab Mobile Phlebotomy [facility] [address] [place] [address] Mvmg, Gml Mobile Home Draw [address] [address] 07/04/2024 7:00 AM EDT Laboratory Lab Mobile Phlebotomy [facility] [address] [place], [place] [address] Mvmg, Gml Mobile Home Draw [address] [place] [address] 07/18/2024 7:00 AM EDT Laboratory Lab Mobile Phlebotomy [facility] [address] [place], [place] [address] Mvmg, Gml Mobile Home Draw [address] [place] [address] 08/01/2024 7:00 AM EDT Laboratory Lab Mobile Phlebotomy [facility] [address] [place], [place] [address] Mvmg, Gml Mobile Home Draw [address] [place], [place] [address] 08/13/2024 8:00 AM EDT Office Visit Cardiology, [facility] [address] [place] [address] Dominick Benz, [address] [place] [address] 08/15/2024 7:00 AM EDT Laboratory Lab Mobile Phlebotomy [facility] [address] [place], [place] [address] Mvmg, Gml Mobile Home Draw [address] [place], [place] [address] 08/29/2024 7:00 AM EST Laboratory Lab Mobile Phlebotomy [facility] [address] [place], [place] [address] Mvmg, Gml Mobile Home Draw [address] [place], [place] [address] 08/29/2024 8:00 AM EST Hospital Encounter ENDO [facility], Endoscopy Room [facility] [address] [place] [phone] Arnie Shrestha MD [address] [place] [address] 08/29/2024 8:00 AM EST - 08/29/2024 8:30 AM EST Surgery ENDO [facility], Endoscopy Room [facility] [address] [place] [phone] Arnie Shrestha MD [address] [place] [address] COLONOSCOPY FLEXIBLE PROXIMAL DIAGNOSTIC 09/02/2024 1:45 PM EST Office Visit Dermatology [facility] [address] [facility] [place] [address] Osvaldo Liu MD 200 [facility] [place] [address] 09/12/2024 7:00 AM EST Laboratory Lab Mobile Phlebotomy [facility] [address] [place] [address] Mvmg, Gml Mobile Home Draw [address] [place] [address] 09/17/2024 11:15 AM EST Office Visit Urology, [facility] [address] [place] [address] Kalpesh Funes MD [address] [place] [address] 09/26/2024 7:00 AM EST Laboratory Lab Mobile Phlebotomy [facility] [address] [place] [address] Mvmg, Gml Mobile Home Draw [address] [place] [address] 03/12/2025 3:30 PM EDT Home Visit [facility] at Home [address] [place], [place] [id number] Betina Jacob PA-C [address], [place] [id number] Pending Results Name Type Priority Associated Diagnoses Date /Time CLOSTRIDIUM DIFFICILE, PCR Lab Routine Diarrhea, unspecified type 05/02/2024 1:31 PM EDT Scheduled Procedures Name Priority Associated [...] Additional history exists CKD PHOS USE SMARTSET 67808 12/07/202411/23, 12/26/2022, 06/21/2021 Depression Screening 03/07/2025 03/07/2024 CKD HGB USE SMARTSET 04208 05/01/202505/01, 05/01/2024, 04/23/2024, Additional history exists DTaP,Tdap,and [...] this encounter Medical Devices Implanted Type Area Escort Car Driver Device Identifier Shelf Expiration Date Model / Serial / Lot Lens Intraoc 22.5 - [id number] - [id number] Implanted:Qty: 1 on 05/22/2018 by Jasbir Maurer MD at OR [facility] Right: Eye [employer]CH [employer]OMB 11/22/2022 [id number] / [id number] / [id number] Lens Intraoc 21.0 - [id number] - [id number] Implanted:Qty: 1 on 06/05/2018 by Jasbir Maurer MD at OR [facility] Left: Eye BAUSCH & LOMB 12/20/2022 [id number] / [id number] / Duraclip 16mm Xlg Repostn - [id number] Implanted:Qty: 1 on 04/12/2024 by Edilberto Lujan MD at OR [facility] [employer] [id number] 12/08/2024 [id number] / / [id number] Duraclip 16mm Xlg Repostn - [id number] Implanted:Qty: 1 on 04/12/2024 by Edilberto Lujan MD at OR [facility] [employer]ACH[employer] [id number] 12/08/2024 [id number] / / [id number] Duraclip 16mm Xlg Repostn - [id number] Implanted:Qty: 1 on 04/12/2024 by Edilberto Lujan MD at OR [facility] [employer] [id number] 12/08/2024 [id number] / / [id number] documented as of this encounter Procedures Procedure Name Priority Date/Time Associated Diagnosis Comments DIFFERENTIAL, AUTOMATED Routine 05/01/2024 10:13 AM EDT Fatigue, unspecified type Acute blood loss anemia AVM (arteriovenous malformation) of small bowel, acquired CBC Routine 05/01/2024 10:13 AM EDT Fatigue, unspecified type Acute blood loss anemia AVM (arteriovenous malformation) of small bowel, acquired CBC Routine 05/01/2024 10:13 AM EDT Fatigue, unspecified type Acute blood loss anemia AVM (arteriovenous malformation) of small bowel, acquired documented in this encounter Results * (ABNORMAL) DIFFERENTIAL, AUTOMATED (05/01/2024 10:13 AM EDT) Pathologist [facility] WBC 7.28 4.00 - 10.80 K/uL 05/01/2024 10:19 AM EDT [facility] [place] 57-10 Neutrophils % 82.7(H) 40.0 - 75.0 % 05/01/2024 10:19 AM EDT [facility] [place] 57-10 Lymphocytes % 10.3(L) 18.0 - 42.0 % 05/01/2024 10:19 AM EDT [facility] [place] 57-10 Monocytes % 6.5 1.0 - 11.0 % 05/01/2024 10:19 AM EDT [facility] [place] 57-10 Eosinophils % 0.4 0.0 - 6.0 % 05/01/2024 10:19 AM EDT [facility] [place] 57-10 Basophils % 0.1 0.0 - 2.0 % 05/01/2024 10:19 AM EDT [facility] [place] 57-10 Absolute Neutrophils 6.02 1.80 - 7.70 K/uL 05/01/2024 10:19 AM EDT [facility] [place] 57-10 Absolute Lymphocytes 0.75(L) 1.00 - 4.80 K/ul 05/01/2024 10:19 AM EDT [facility] [place] 57-10 Absolute Monocytes 0.47 0.00 - 1.10 K/uL 05/01/2024 10:19 AM EDT [facility] [place] 57-10 Absolute Eosinophils 0.03 0.00 - 0.70 K/uL 05/01/2024 10:19 AM EDT [facility] [place] 57-10 Absolute Basophils 0.01 0.00 - 0.20 K/uL 05/01/2024 10:19 AM EDT [facility] [place] 57-10 Blood Venous blood specimen / Unknown Venipuncture / Unknown 05/01/2024 10:13 AM EDT 05/01/2024 10:13 AM EDT Cisco Frey Iftikhar [facility] LAB BLOOD ORDERABL ES [facility] [place] [address] [place] [address] * (ABNORMAL) CBC (05/01/2024 10:13 AM EDT) WBC 7.28 4.00 - 10.80 K/uL 05/01/2024 10:19 AM EDT [facility] [place] 57-10 RBC 3.21 4.50 - 5.25 M/uL 05/01/2024 10:19 AM EDT [facility] [place] 57-10 HGB 10.3(L) 14.0 - 16.8 g/dL 05/01/2024 10:19 AM EDT [facility] [place] 57-10 HCT 31.8(L) 40.0 - 48.4 % 05/01/2024 10:19 AM EDT [facility] [place] 57-10 MCV 99.1 82.0 - 99.5 fL 05/01/2024 10:19 AM EDT [facility] [place] 57-10 MCH 32.1 27.0 - 34.0 pg 05/01/2024 10:19 AM EDT [facility] [place] 57-10 MCHC 32.4 32.0 - 36.0 g/dL 05/01/2024 10:19 AM EDT [facility] [place] 57-10 RDW 15.3 11.5 - 15.5 % 05/01/2024 10:19 AM EDT [facility] [place] 57-10 PLT 176 140 - 400 K/uL 05/01/2024 10:19 AM EDT [facility] [place] 57-10 MPV 8.8 6.6 - 11.1 fL 05/01/2024 10:19 AM EDT [facility] [place] 5710 Blood Venous blood specimen / Unknown Venipuncture / Unknown 05/01/2024 10:13 AM EDT 05/01/2024 10:13 AM EDT Cisco Frey Iftikhar [facility] LAB BLOOD ORDERABL ES LAB[facility] [place] 57-10 [address] [place] [address] documented in this encounter Visit Diagnoses Diagnosis Fatigue, unspecified type Acute blood loss anemia Acute posthemorrhagic anemia AVM (arteriovenous malformation) of small bowel, acquired Diarrhea, unspecified type Special screening for malignant neoplasms, colon documented in this encounter Additional Health Concerns Infection Onset Date Last Indicated Resolved Time C. difficile Rule-Out 05/02/2024 05/02/2024 documented as of this encounter [...] Agents on File Name [facility] Ashley Fantasma Jose Spouse Health Care Power of Attor mayela Care Teams String Cutter Relationship Specialty Start Date End Date Michael Hinton MD [address] [place] [address] PCP - General Family Medicine 08/07/17 documented as of this encounter
--- OUTSIDE RECORDS SUMMARY | 2024-05-04 16:47 | External Medical Summary | Summary of Care ---
Author Name Unknown Organization [facility] Address [address] [place] [place] [address] Phone [phone] Care Team Providers Care Systems Auditor Name Role Phone Michael Hinton MD Primary Care Provider [phone] Reason for Visit * Reason Onset Date Comments [facility]: Acute 05/03/2024 Encounter Details Date Type Department Care Team (Late st Contact Info) Description 05/03/2024 Telephone [facility], [facility] [address] [place] [address] [facility], Nurse [address] [place] [address] [facility]: Acute Allergies Active Allergy Reactions Criticality Noted Date Comments Fabiano Inhibitors Cough 06/09/2017 Carbidopa W-Levodopa 03/17/2021 Constipation Nsaids Rash 05/17/2018 Contraindicated per grid molder documented as of this encounter (statuses as [...] mitral valve regurgitation,Coron daniel artery disease involving nuiqsut coronary artery of nuiqs[place] heart without angina pectoris,Stage 3b chronic kidney [...] knees 03/21/2018 Coronary artery disease invo lving nuiqsut coronary [...] scanned document from 11/13/[address] bains, [facility] [place]. Coronary artery disease due to [...] mRNA, LNP-s, No Pre serve, 2-Dose Series ([employer]) 11/03/2021,12/19/2020,11/28/2020 Covid-19 Ad26, Single Dose (Soy/J&J) [...] 05/03/2024 12:15 PM EDT Received TT from [facility] booking clerk Gallo Padgett: "Please let Elton know juan tried calling [facility] and systems are down" TT to Jules Jain PA-C re: above. His reply: "Then we need ED" Outgoing call to the pt's Ashley and notified her of same. Ashley states "oh, no he won't go to the ED, he just won't, he will refuse to go". Ashley states that she can drive the pt to [facility] for the imaging if they can get it scheduledthere. Advised Ashley to speak with the pt and let him know that if [facility] is not able to schedule the imagingstudy to be done stat today then it is imperative for the pt to be seen in the ED in order for the testing to be done today in order to rule out a DVT. Ashley states that the pt becomes easily agitated and she will speak with the pt herself. Instructed Ashley to call [facility] either way to let us know if the pt is willing to go to the ED or not. She states that she will. Dixie Mera BSN, RN [facility] Intake Triage Coordinator [phone] * Telephone Encounter - Dixie Mera RN [...] did have this study in January in [facility]. Sent HP TT to [facility] booking clerk in the TT role. Notified Ashley that as soon as we get the result of the study we will make her aware. Ashley verbalized understanding of same. Dixie PRINCE, RN [facility] Intake Triage Coordinator [phone] * Addendum Note - Gil Jain PA-C [...] Mera RN - 05/03/2024 10:00 AM EDT [facility] sales office assistant Acute Call Date: 05/03/2024 Time: 10:03 AM Name: Jesus Jose : 1945 Caller: Ashley Relationship to pt- Chief Complaint Patient presents with [facility]: Acute HPI: Jesus Jose is a 79 year old male whose is calling [facility] Intake to report that the [...] is concerned and told her to call [facility] about this new symptom. Spoke directly with [...] for same day: No- will inquire with [facility] if acute HV is warranted Provider Name: - Treatment plan until appointment: as above Will send to [facility] for orders/ recommendations and inquire if pt requires imaging studies Scheduled 24/48 hr f/u calls Call back instructions provided to patient. Dixie PRINCE, RN [facility] Intake Triage Coordinator [phone] documented in this encounter Plan of Treatment Upcoming Encounters Date Type Department Care Team (Late st Contact Info) Description 05/04/2024 10:00 AM EDT Scheduled Telephone [facility], [place] [address] [address] [place] [address] [facility], Nurse [place] [address] [address] [place] [address] 05/05/2024 9:45 AM EDT Scheduled Telephone [facility], [place] [address] [facility] [place] [address] [facility], Nurse [address] [place] [address] 05/08/2024 2:30 PM EDT Telemedicine [facility], [place] [address] [address] [place] [address] Berny Power PA-C [address] [facility] [place] [address] Meri Mae, Community Health Slide Forming Machine Tender [address] [place] [address] 05/09/2024 7:00 AM EDT Laboratory Lab Mobile Phlebotomy [facility] [address] [facility] [place] [address] Mvmg, Gml [facility] Draw [address] [facility] [place] [address] 05/23/2024 7:00 AM EDT [facility] [address] [facility] [address] M[facility], [facility] Draw [address] [facility] [place] [address] 05/31/2024 10:00 AM EDT Home Visit [facility], [facility] [address] [place] [address] Peggy De, RN 132 [facility] [place] [address] 06/06/2024 7:00 AM EDT Laboratory Lab Mobile Phlebotomy [facility] [address] [place] [address] Mvmg, Gml [facility] Home Draw [address] [facility] [place] [address] 06/20/2024 7:00 AM EDT Laboratory Lab Mobile Phlebotomy [facility] [address] [facility] [place] [address] Mvmg, Gml [facility] Home Draw [address] [facility] [place] [address] 07/04/2024 7:00 AM EDT Laboratory Lab Mobile Phlebotomy [facility] [address] [place] [address] Mvmg, Gml Mobile Home Draw [address] [facility] [place] [address] 07/18/2024 7:00 AM EDT Laboratory Lab Mobile Phlebotomy M[facility] [address] [place] [address] Mvmg, Gml Mobile Home Draw [address] [facility] [place] [address] 08/01/2024 7:00 AM EDT Laboratory Lab Mobile Phlebotomy [facility] [address] [facility] [place] [address] Mvmg, Gml Mobile Home Draw [address] [facility] [place] [address] 08/13/2024 8:00 AM EDT Office Visit Cardiology, [facility] [address] [place] [address] Dominick Benz, DO [address] [place] [address] 08/15/2024 7:00 AM EDT Laboratory Lab Mobile Phlebotomy [facility] [address] [facility] [place] [address] Mvmg, Gml Mobile Home Draw [address] [facility] [place] [address] 08/29/2024 7:00 AM EST Laboratory Lab Mobile Phlebotomy [facility] [address] [facility] [place] [address] Mvmg, Gml Mobile Home Draw [address] [facility] [place] [address] 08/29/2024 8:00 AM EST Hospital Encounter ENDO [facility], Endoscopy Room [facility] [address] [place] [address] Arnie Shrestha MD [address] [place] [address] 08/29/2024 8:00 AM EST - 08/29/2024 8:30 AM EST Surgery ENDO [facility], Endoscopy Room [facility] [address] [place] [phone] Arnie Shrestha MD [address] [place] [address] COLONOSCOPY FLEXIBLE PROXIMAL DIAGNOSTIC 09/02/2024 1:45 PM EST Office Visit Dermatology [facility] 200 [facility] [place] [address] Osvaldo Liu MD 200 [facility] [place] [address] 09/12/2024 7:00 AM EST Laboratory Lab Mobile Phlebotomy M[facility] [address] [facility] [place] [address] Mvmg, Gml Mobile Home Draw [address] [facility] [place], [place] [address] 09/17/2024 11:15 AM EST Office Visit Urology, [facility] [address] [place] [address] Kalpesh Funes MD 27 [place] [address] 09/26/2024 7:00 AM EST Laboratory Lab Mobile Phlebotomy [facility] [address] [facility] [place] [address] Mvmg, Gml Mobile Home Draw [address] [facility] [place] [address] 03/12/2025 3:30 PM EDT Home Visit [facility] [address] [place] [address] Betina Jacob PA-C [address] [place] [address] Scheduled Orders Name Type Priority Associated Diagnoses [...] Additional history exists CKD PHOS USE SMARTSET 97749 12/07/202411/23, 12/26/2022, 06/21/2021 Depression Screening 03/07/2025 03/07/2024 CKD HGB USE SMARTSET 59552 05/01/202505/01, 05/01/2024, 04/23/2024, Additional history exists DTaP,Tdap,and [...] this encounter Medical Devices Implanted Type Area Auditing Specialist Device Identifier Shelf Expiration Date Model / Serial / Lot Lens Intraoc 22.5 - [id number] - [id number] Implanted:Qty: 1 on 05/22/2018 by Jasbir Maurer MD at OR [facility] Right: Eye [employer] 11/22/2022 [id number] / [id number] / [id number] Lens Intraoc 21.0 - [id number] - [id number] Implanted:Qty: 1 on 06/05/2018 by Jasbir Maurer MD at OR [facility] Left: Eye [employer] 12/20/2022 [id number] / [id number] / Duraclip 16mm Xlg Repostn - [id number] Implanted:Qty: 1 on 04/12/2024 by Edilberto Lujan MD at OR [facility] [employer] [id number] 12/08/2024 [id number] / / [id number] Duraclip 16mm Xlg Repostn - [id number] Implanted:Qty: 1 on 04/12/2024 by Edilberto Lujan MD at OR [facility] [employer] [id number] 12/08/2024 [id number] / / [id number] Duraclip 16mm Xlg Repostn - [id number] Implanted:Qty: 1 on 04/12/2024 by Edilberto Lujan MD at OR [facility] [email or web address] [facility] [id number] 12/08/2024 [id number] / / [id number] documented as of this encounter Visit Diagnoses [...] Power of Attor mayela Care Teams Systems Auditor Relationship Specialty Start Date End Date Michael Hinton MD 132 [place] [address] PCP - General Family Medicine 08/07/17 documented as of this encounter
--- OUTSIDE RECORDS SUMMARY | 2024-05-04 16:47 | External Medical Summary | Summary of Care ---
Author Name Unknown Organization [facility] Address [address] [place] [address] Phone [phone] Care Team Providers Care Craft Coordinator Name Role Phone Michael Hinton MD Primary Care Provider [phone] Reason for Visit * Reason Comments Outpatient Testing Encounter Details Date Type Department Care Team (Late st Contact Info) Description 05/01/2024 10:10 AM EDT Laboratory Laboratory, [facility] [address] [place] [address] [facility] [address] [place] [address] Fatigue, unspecified type; Acute blood loss anemia; AVM (arteriovenous malformation) of small bowel, acquired; Diarrhea, unspecified type Allergies Active Allergy Reactions Criticality Noted Date Comments Fabiano Inhibitors Cough 06/09/2017 Carbidopa W-Levodopa 03/17/2021 Constipation Nsaids Rash 05/17/2018 Contraindicated per cotton washer documented as of this encounter (statuses [...] mitral valve regurgitation,Krista nary artery disease involving pai[place]-shoshone coronary artery of paiute-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 angina pectoris,Stage 3b chronic kidney [...] 07/28/2021 Last Assessment & Plan: Follows with [facility] hematology Routine labs monitored by hem/onc [...] knees 03/21/2018 Coronary artery disease invo lving [place]-shosh[place] coronary artery of paiute-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 angina pectoris 03/21/2018 Last Assessment [...] 2:30 PM EDT Telemedicine [facility], [facility] [address] [place] [address] Berny Power PA-C 132 [facility] [place] [address] Meri Mae, Community Health Assembling Inspector [address] [place] [address] 05/09/2024 7:00 AM EDT Laboratory Lab Mobile Phlebotomy [facility] [address] [facility] [place] [address] Mvmg, Gml Mobile Home Draw [address] [employer] [place] [address] 05/23/2024 7:00 AM EDT Laboratory Lab Mobile Phlebotomy [facility] [address] [employer] [place] [address] Mvmg, Gml Mobile Home Draw [address] [employer] [place] [address] 05/31/2024 10:00 AM EDT Home Visit [facility], [facility] [address] [place] [address] Peggy De RN 132 [facility] [place] [address] 06/06/2024 7:00 AM EDT Laboratory Lab Mobile Phlebotomy [facility] [address] [employer] [place] [address] Mvmg, Gml Mobile Home Draw [address] [employer] [place] [address] 06/20/2024 7:00 AM EDT Laboratory Lab Mobile Phlebotomy [facility] [address] [employer] [place] [address] Mvmg, Gml Mobile Home Draw [address] [place] [address] 07/04/2024 7:00 AM EDT Laboratory Lab Mobile Phlebotomy [facility] [address] [place], [place] [address] Mvmg, Gml Mobile Home Draw [address] [place] [address] 07/18/2024 7:00 AM EDT Laboratory Lab Mobile Phlebotomy [facility] [address] [place], [place] [address] Mvmg, Gml Mobile Home Draw [address] [place] [address] 08/01/2024 7:00 AM EDT Laboratory Lab Mobile Phlebotomy [facility] [address] [place], [place] [address] Mvmg, Gml Mobile Home Draw [address] [place], [place] [address] 08/13/2024 8:00 AM EDT Office Visit Cardiology, [facility] [address] [place] [address] Dominick Benz, [address] [place] [address] 08/15/2024 7:00 AM EDT Laboratory Lab Mobile Phlebotomy [facility] [address] [place], [place] [address] Mvmg, Gml [facility] Draw [address] [place], [place] [address] 08/29/2024 7:00 AM EST Laboratory Lab Mobile Phlebotomy [facility] [address] [place], [place] [address] Mvmg, Gml Mobile Home Draw [address] [place], [place] [address] 08/29/2024 8:00 AM EST Hospital Encounter ENDO [facility], Endoscopy Room [facility] [address] [place] [phone] Arnie Shrestha MD [address] [place] [address] 08/29/2024 8:00 AM EST - 08/29/2024 8:30 AM EST Surgery ENDO [facility], Endoscopy Room [facility] [address] [place] [phone] Arnie Shrestha MD [address] [place] [address] COLONOSCOPY FLEXIBLE PROXIMAL DIAGNOSTIC 09/02/2024 1:45 PM EST Office Visit Dermatology [facility] [address] [facility] [place] [address] Osvaldo Liu MD 200 [facility] [place] [address] 09/12/2024 7:00 AM EST Laboratory Lab Mobile Phlebotomy M[facility] [address] [facility] [place] [address] Mvmg, Gml Mobile Home Draw [address] [employer] [place] [address] 09/17/2024 11:15 AM EST Office Visit Urology, [facility] [address] [place] [address] Kalpesh Funes MD [address] [place] [address] 09/26/2024 7:00 AM EST Laboratory Lab Mobile Phlebotomy [facility] [address] [facility] [place] [address] Mvmg, Gml Mobile Home Draw [address] [employer] [place] [address] 03/12/2025 3:30 PM EDT Home Visit [facility] [address] [place], [place] [id number] Betina Jacob PA-C [address] [place], [place] [address] Pending Results Name Type Priority Associated Diagnoses Date /Time CLOSTRIDIUM DIFFICILE, PCR Lab Routine Diarrhea, unspecified type 05/02/2024 1:31 PM EDT GASTROINTESTINAL PATHOGEN PANEL, STOOL Lab Routine Diarrhea, unspecified type 05/02/2024 1:31 PM EDT GASTROINTESTINAL PATHOGEN PANEL PCR Lab Routine Diarrhea, unspecified type 05/02/2024 1:31 PM EDT GASTROINTESTINAL PATHOGEN PANEL CULTURE Lab Routine Diarrhea, unspecified type 05/02/2024 1:31 [...] Additional history exists CKD PHOS USE SMARTSET 82675 12/07/202411/23, 12/26/2022, 06/21/2021 Depression Screening 03/07/2025 03/07/2024 CKD HGB USE SMARTSET 78479 05/01/202505/01, 05/01/2024, 04/23/2024, Additional history exists DTaP,Tdap,and [...] this encounter Medical Devices Implanted Type Area Carpet Mechanic Device Identifier Shelf Expiration Date Model / Serial / Lot Lens Intraoc 22.5 - [id number] - [id number] Implanted:Qty: 1 on 05/22/2018 by Jasbir Maurer MD at OR [facility] Right: Eye [employer] 11/22/2022 [id number] / [id number] / [id number] Lens Intraoc 21.0 - [id number] - [id number] Implanted:Qty: 1 on 06/05/2018 by Jsabir Maurer MD at OR [facility] Left: Eye [employer] 12/20/2022 [id number] / [id number] / Duraclip 16mm Xlg Repostn - [id number] Implanted:Qty: 1 on 04/12/2024 by Edilberto Lujan MD at OR [facility] [employer] [id number] 12/08/2024 [id number] / / [id number] Duraclip 16mm Xlg Repostn - [id number] Implanted:Qty: 1 on 04/12/2024 by Edilberto Lujan MD at OR [facility] [employer] [id number] 12/08/2024 [id number] / / [id number] Duraclip 16mm Xlg Repostn - [id number] Implanted:Qty: 1 on 04/12/2024 by Edilberto Lujan MD at OR [facility] [id number] 12/08/2024 [id number] / / [id number] documented as of this encounter Procedures Procedure [...] (ABNORMAL) DIFFERENTIAL, AUTOMATED (05/01/2024 10:13 AM EDT) WBC 7.28 4.00 [...] 1.10 K/uL 05/01/2024 10:19 AM EDT [facility] [place] 57-10 Absolute Eosinophils 0.03 0.00 - 0.70 K/uL 05/01/2024 10:19 AM EDT [facility] [place] 5710 Absolute Basophils 0.01 0.00 - 0.20 K/uL 05/01/2024 10:19 AM EDT [facility] [place] 5710 Blood Venous blood specimen / Unknown Venipuncture / Unknown 05/01/2024 10:13 AM EDT 05/01/2024 10:13 AM EDT [facility] ORDER[facility]L ES [facility] [place] [address] [address] [place] [address] * (ABNORMAL) CBC (05/01/2024 10:13 AM EDT) WBC 7.28 4.00 - 10.80 K/uL 05/01/2024 10:19 AM EDT [facility] [place] [facility] RBC 3.21 4.50 - 5.25 M/uL 05/01/2024 10:19 AM EDT [facility] [place] 5710 HGB 10.3(L) 14.0 - 16.8 g/dL 05/01/2024 10:19 AM EDT [facility] [place] [address] HCT 31.8(L) 40.0 - 48.4 % 05/01/2024 10:19 AM EDT LABORATORY [address] MCV 99.1 82.0 - 99.5 fL 05/01/2024 10:19 AM EDT [facility] [place] 5710 MCH 32.1 27.0 - 34.0 pg 05/01/2024 10:19 AM EDT [facility] [place] 5710 MCHC 32.4 32.0 - 36.0 g/dL 05/01/2024 10:19 AM EDT LABORATORY [address] RDW 15.3 11.5 - 15.5 % 05/01/2024 10:19 AM EDT LABORATORY [place] 57-10 PLT 176 140 - 400 K/uL 05/01/2024 10:19 AM EDT LAB[facility] [place] 57-10 MPV 8.8 6.6 - 11.1 fL 05/01/2024 10:19 AM EDT LAB[facility] [place] 57-10 Blood Venous blood specimen / Unknown Venipuncture / Unknown 05/01/2024 10:13 AM EDT 05/01/2024 10:13 AM EDT [facility] [place] 57-10 [address] [place] [address] documented in this encounter Visit Diagnoses Diagnosis Fatigue, unspecified type Acute blood loss anemia Acute posthemorrhagic anemia AVM (arteriovenous malformation) of small bowel, acquired Diarrhea, unspecified type Special screening for malignant neoplasms, colon documented in this encounter Additional Health Concerns Infection Onset Date Last Indicated Resolved Time C. difficile Rule-Out 05/02/2024 05/02/2024 Gastrointestinal Rule-Out 05/02/2024 05/02/2024 documented as of this [...] Care Power of Attor mayela Care Teams Craft Coordinator Relationship Specialty Start Date End Date Michael Hinton MD [address] [place] [address] PCP - General Family Medicine 08/07/17 documented as of this encounter
--- OUTSIDE RECORDS SUMMARY | 2024-05-04 16:47 | External Medical Summary | Summary of Care ---
Author Name Unknown Organization [facility] Address [address] [place] [place] [address] Phone [phone] Care Team Providers Care Supervisor [employer] Name Role Phone Michael Hinton MD Primary Care Provider [phone] Reason for Visit * Reason Onset Date Comments [facility]: Acute 05/03/2024 Encounter Details Date Type Department Care Team (Late st Contact Info) Description 05/03/2024 Telephone [facility], [facility] [address] [place] [address] [facility], Nurse [address] [place] [address] [facility]: Acute Allergies Active Allergy Reactions Criticality Noted Date Comments Fabiano Inhibitors Cough 06/09/2017 Carbidopa W-Levodopa 03/17/2021 Constipation Nsaids Rash 05/17/2018 Contraindicated per dbas documented as of this encounter (statuses as [...] mitral valve regurgitation,Coron daniel artery disease involving [place] coronary artery of [place] heart without angina pectoris,Stage 3b chronic kidney [...] Metoprolol Succinate (ER) FABIANO Inhibitor/ARB Therapy: No AFBIANO/ARB/ARNI secondary to: cough Diuretic therapy: Torsemide Self [...] knees 03/21/2018 Coronary artery disease invo lving [place] coronary artery of [place] heart without angina pectoris 03/21/2018 Last Assessment [...] [place]. 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y [...] mRNA, LNP-s, No Pre serve, 2-Dose Series ([employer]) 11/03/2021,12/19/2020,11/28/2020 Covid-19 Ad26, Single Dose (Soy/J&J) 12/19/2020,11/28/2020 [...] 05/03/2024 10:00 AM EDT [facility] hand spring repairer Acute Call Date: 05/03/2024 Time: 10:03 AM Name: Jesus Jose : 1945 Caller: Ashley Relationship to pt- Chief Complaint Patient presents with [facility]: Acute HPI: Jesus Jose is a 79 year old male whose is calling [facility] Intake to report that the [...] is concerned and told her to call [facility] about this new symptom. Spoke directly with [...] for same day: No- will inquire with [facility] if acute HV is warranted Provider Name: - Treatment plan until appointment: as above Will send to [facility] for orders/ recommendations and inquire if pt requires imaging studies Scheduled 24/48 hr f/u calls Call back instructions provided to patient. Dixie PRINCE, RN [facility] Intake Triage Coordinator [phone] documented in this encounter Plan of Treatment Upcoming Encounters Date Type Department Care Team (Late st Contact Info) Description 05/04/2024 10:00 AM EDT Scheduled Telephone [facility] [place] [address] [place] [address] [facility], Nurse [address] [place] [address] 05/05/2024 9:45 AM EDT Scheduled Telephone [facility], [place] [address] [place] [address] [facility], Nurse [place] [address] [place] [address] 05/08/2024 2:30 PM EDT Telemedicine [facility] [place], [facility] [address] [place] [address] Berny Power PA-C [address] [place] [address] Meri Mae, Community Health Mud Analysis Well Logging Captain [facility] [place] [address] 05/09/2024 7:00 AM EDT Laboratory Lab Mobile Phlebotomy [facility] [address] [place] [address] Mvmg, G[facility] Home Draw [address] [facility] [place], [place] [address] 05/23/2024 7:00 AM EDT Laboratory Lab Mobile Phlebotomy [facility] [address] City Notes [facility] [place] [address] Mvmg, Gml Mobile Home Draw 25[address] [facility] [place] [address] 05/31/2024 10:00 AM EDT [facility] [address] [place] [address] Peggy De RN [address] [place] [address] 06/06/2024 7:00 AM EDT Laboratory Lab Mobile Phlebotomy [facility] [address] [place] [address] Mvmg, Gml Mobile Home Draw 25[address] [facility] [place] [address] 06/20/2024 7:00 AM EDT Laboratory Lab Mobile Phlebotomy [facility] [address] [place] [address] Mvmg, Gml Mobile Home Draw 25[address] [facility] [place], [place] [address] 07/04/2024 7:00 AM EDT Laboratory Lab Mobile Phlebotomy [facility] [address] [place] [address] Mvmg, Gml Mobile Home Draw [address] [employer] [place] [address] 07/18/2024 7:00 AM EDT Laboratory Lab Mobile Phlebotomy M[facility] [address] [facility] [place] [address] Mvmg, Gml Mobile Home Draw [address] [facility] [place] [address] 08/01/2024 7:00 AM EDT Laboratory Lab Mobile Phlebotomy M[facility] [address] [facility] [place], [place] [address] Mvmg, Gml Mobile Home Draw [address] [facility] [place] [address] 08/13/2024 8:00 AM EDT Office Visit Cardiology, [facility] [address] [place] [address] Dominick Benz DO [address] [place] [address] 08/15/2024 7:00 AM EDT Laboratory Lab Mobile Phlebotomy [facility] [address] [facility] [place] [address] Mvmg, Gml Mobile Home Draw 2520 [facility] [place] [address] 08/29/2024 7:00 AM EST Laboratory Lab Mobile Phlebotomy [facility] [address] [facility] [place] [address] Mvmg, Gml Mobile Home Draw [address] [facility] [place] [address] 08/29/2024 8:00 AM EST Hospital Encounter ENDO OSSC, Endoscopy Room OSS [address] [place] [phone] Arnie Shrestha MD [address] [place] [address] 08/29/2024 8:00 AM EST - 08/29/2024 8:30 AM EST Surgery ENDO O[facility], Endoscopy Room [facility] [address] [place] [phone] Arnie Shrestha MD 132 [place] [address] COLONOSCOPY FLEXIBLE PROXIMAL DIAGNOSTIC 09/02/2024 1:45 PM EST Office Visit Dermatology [facility] [address] [facility] [place] [address] Osvaldo Liu MD 200 [facility] [place] [address] 09/12/2024 7:00 AM EST Laboratory Lab Mobile Phlebotomy M[facility] [address] [place] [address] Mvmg, Gml Mobile Home Draw 2520 [facility] [place] [address] 09/17/2024 11:15 AM EST Office Visit Urology, [facility] 132 [facility] [place] [address] Kalpesh Funes MD [address] [facility] [place] [address] 09/26/2024 7:00 AM EST Laboratory Lab Mobile Phlebotomy M[facility] [address] City Notes [facility] [place] [address] Mvmg, Gml Mobile Home Draw 2520 [facility] [place] [address] 03/12/2025 3:30 PM EDT Home Visit Care at Home [address] [place] [address] Betina Jacob PA-C [address] [place] [address] Scheduled Procedures Name Priority Associated Diagnoses Date/Ti [...] Additional history exists CKD PHOS USE SMARTSET 49089 12/07/202411/23, 12/26/2022, 06/21/2021 Depression Screening 03/07/2025 03/07/2024 CKD HGB USE SMARTSET 97706 05/01/202505/01, 05/01/2024, 04/23/2024, Additional history exists DTaP,Tdap,and [...] this encounter Medical Devices Implanted Type Area Leasing Sales Consultant Device Identifier Shelf Expiration Date Model / Serial / Lot Lens Intraoc 22.5 - [id number] - [id number] Implanted:Qty: 1 on 05/22/2018 by Jasbir Maurer MD at OR [facility] Right: Eye [employer] 11/22/2022 [id number] / [id number] / [id number] Lens Intraoc 21.0 - [id number] - [id number] Implanted:Qty: 1 on 06/05/2018 by Jasbir Maurer MD at OR [facility] Left: Eye [employer]OM[employer] 12/20/2022 [id number] / [id number] / Duraclip 16mm Xlg Repostn - [id number] Implanted:Qty: 1 on 04/12/2024 by Edilberto Lujan MD at OR [facility] [employer] [id number] 12/08/2024 [id number] / / [id number] Duraclip 16mm Xlg Repostn - [id number] Implanted:Qty: 1 on 04/12/2024 by Edilberto Lujan MD at OR [facility] [employer] [id number] 12/08/2024 [id number] / / [id number] Duraclip 16mm Xlg Repostn - [id number] Implanted:Qty: 1 on 04/12/2024 by Edilberto Lujan MD at OR [facility] [employer] [id number] 12/08/2024 [id number] / / [id number] documented as of this encounter Additional Health [...] Agents on File Name Relationship Healthcare Agent [facility] Communication Ashley Jose Spouse Health Care Power of Attor mayela Care Teams Supervisor [employer] Relationship Specialty Start Date End Date Michael Hinton MD 132 [place] [address] PCP - General Family Medicine 08/07/17 documented as of this encounter
--- OUTSIDE RECORDS SUMMARY | 2024-05-04 16:47 | External Medical Summary | Summary of Care ---
Author Name Unknown Organization [facility] Address [address] [place] [address] Phone [phone] Care Team Providers Care Therapy Aide Name Role Phone Michael Hinton MD Primary Care Provider [phone] Reason for Visit * Reason Onset Date Comments Medication Refill 05/02/2024 Encounter Details Date Type Department Care Team (Late st Contact Info) Description 05/02/2024 Refill Cardiology, [facility] [address] [place] [address] Dominick Benz, [address] [place] [address] Paroxysmal atrial fibrillation (HCC)* Allergies Active Allergy Reactions Criticality Noted Date Comments Fabiano Inhibitors Cough 06/09/2017 Carbidopa W-Levodopa 03/17/2021 Constipation Nsaids Rash 05/17/2018 Contraindicated per printing specialist documented as of this encounter (statuses as of 05/02/2024) Medications Medication Sig Dispensed Refills Start Date End Date Status Glucose Blood (ONETOUCH VERIO) STRPIndications:Ty pe 2 diabetes mellitus with hemoglobin A1c goal of less than 8.0% ([facility]) Use up to 4 times a [...] mitral valve regurgitation,Krista nary artery disease involving [place] coronary artery of [place] heart without angina pectoris,Stage 3b chronic kidney [...] Oral Tablet Extended Release 24 Hour (toPROL XL)Indications:Par oxysmal atrial fibrillation (HCC) Take 1 Tablet by mouth in the morning. 90 Tablet 3 05/02/2024 Active Metoprolol Succinate ER 25 MG Oral [...] 07/28/2021 Last Assessment & Plan: Follows with [facility] hematology Routine labs monitored by hem/onc Update [...] knees 03/21/2018 Coronary artery disease invo lving [place] coronary artery of [place] heart without angina pectoris 03/21/2018 Last Assessment [...] scanned document from 11/13/[address] bains, [facility]. Coronary artery disease due [...] encounter Miscellaneous Notes * Telephone Encounter - Jodi Orozco CRNP - 05/02/2024 11:09 AM EDT Signed Prescriptions: Disp Refills Metoprolol Succinate ER 25 MG Oral Tablet *90 Tab*3 Sig: Take 1 Tablet by mouth in the morning. Authorizing Provider: JODI OROZCO * Telephone Encounter - Nisreen Currie CMA - 05/02/2024 10:45 AM EDTPending Prescriptions: Disp Refills Metoprolol Succinate ER 25 MG Oral Tablet *90 Tab*3 Sig: Take 1 Tablet by mouth in the morning. * Telephone Encounter - Kaila Pizarro CPhT - 05/02/2024 8:48 AM EDT Patient is up to date for office visits. Pt is low. Pending Prescriptions: Disp Refills Metoprolol Succinate ER 25 MG Oral Tablet*90 Tab*3 Sig: Take 1 Tablet by mouth in the morning. Last Visit: 09/04/2023 (in office), Visit date not found (telemedicine) Next Visit: 08/13/2024 If no future appointments scheduled, and last appointment is greater than a year ago, please schedule patient for a follow-up appointment Last date the medication was ordered: 03/21/23 Pharmacy: [facility] Is this request for a controlled substance?No it is not controlled. Urine Drug Screen:No results found. However, due to the size of the patient record, not all encounters were searched. Please check Results Review for a complete set of results. Patient Phone Numbers Labs: Lab Results Component Value Date/Time CREAT 2.1 (H) 04/19/2024 12:00 PM CREAT 1.93 (A) 05/04/2022 12:00 AM CREAT 0.89 01/28/2021 06:05 AM CREAT 1.5 (H) 08/31/2020 08:06 AM POTASSIUM 3.5 04/19/2024 12:00 PM POTASSIUM 3.0 (A) 05/04/2022 12:00 AM POTASSIUM 3.7 01/28/2021 06:05 AM POTASSIUM 3.8 07/15/2020 11:50 AM TSH 4.24 (H) 12/12/2022 11:43 AM TSH 0.957 09/01/2018 12:00 AM TSH 2.74 04/18/2016 08:24 AM LDLCALC 69 01/18/2024 10:26 AM LDLCALC 88 09/09/2019 07:46 AM LDLDIRECT NOT APPLICABLE 09/09/2019 07:46 AM LDLDIRECT 157 (H) 09/04/2007 05:01 PM ALT 22 03/09/2023 10:30 AM ALT 23 07/15/2020 11:50 AM HGBA1C 6.1 (H) 04/12/2023 01:00 PM HGBA1C 6.3 (H) 03/18/2020 07:00 AM documented in this encounter Plan of Treatment Upcoming Encounters Date Type Department Care Team (Late st Contact Info) Description 05/08/2024 2:30 PM EDT Telemedicine [facility] [address] [place] [address] Berny Power PA-C 132 [facility] [place] [address] Meri Mae, Community Health Customer Engineer [address] [place] [address] 05/09/2024 7:00 AM EDT Laboratory Lab Mobile Phlebotomy M[facility] 25[address] [facility] [place], [place] [address] Mvmg, Gml Mobile Home Draw 25[address] [facility] [place], [place] [address] 05/23/2024 7:00 AM EDT Laboratory Lab Mobile Phlebotomy MVM[facility] 25[address] [facility] [place], [place] [address] Mvmg, Gml Mobile Home Draw 25[address] [facility] [place], [place] [address] 05/31/2024 10:00 AM EDT [facility] [place] [address] Peggy De RN 132 [place] [address] 06/06/2024 7:00 AM EDT Laboratory Lab Mobile Phlebotomy M[facility] 25[address] [facility] [place] [address] Mvmg, Gml Mobile Home Draw 25[address] [facility] [place], [place] [address] 06/20/2024 7:00 AM EDT Laboratory Lab Mobile Phlebotomy MVMG 25[address] [facility] [place], [place] [address] Mvmg, Gml Mobile Home Draw 25[address] [facility] [place], [place] [address] 07/04/2024 7:00 AM EDT Laboratory Lab Mobile Phlebotomy MVMG [address] [facility] [place], [place] [address] Mvmg, Gml Mobile Home Draw 25[address] [facility] [place], [place] [address] 07/18/2024 7:00 AM EDT Laboratory Lab Mobile Phlebotomy MVMG [address] [facility] [place], [place] [address] Mvmg, Gml Mobile Home Draw [address] [facility] [place] [address] 08/01/2024 7:00 AM EDT Laboratory Lab Mobile Phlebotomy MVMG [address] [facility] [place], [place] [address] Mvmg, Gml Mobile Home Draw 25[address] [facility] [place], [place] [address] 08/13/2024 8:00 AM EDT Office Visit Cardiology, [facility] [address] [place] [address] Dominick Benz, [address] [place] [address] 08/15/2024 7:00 AM EDT Laboratory Lab Mobile Phlebotomy MVMG 25[address] [facility] [place], [place] [address] Mvmg, Gml Mobile Home Draw 25[address] [facility] [place], [place] [address] 08/29/2024 7:00 AM EST Laboratory Lab Mobile Phlebotomy MVMG [address] [facility] [place], [place] [address] Mvmg, Gml Mobile Home Draw 25[address] [facility] [place], [place] [address] 08/29/2024 8:00 AM EST Hospital Encounter ENDO OSS, Endoscopy Room [facility] [address] [place] [phone] Arnie Shrestha MD [address] [place] [address] 08/29/2024 8:00 AM EST - 08/29/2024 8:30 AM EST Surgery ENDO OSS, Endoscopy Room [facility] [address] [place] [phone] Arnie Shrestha MD [address] [place] [address] COLONOSCOPY FLEXIBLE PROXIMAL DIAGNOSTIC 09/02/2024 1:45 PM EST Office Visit Dermatology [facility] 200 [facility] [place] [address] Osvaldo Liu MD 200 [facility] [place] [address] 09/12/2024 7:00 AM EST Laboratory Lab Mobile Phlebotomy M[facility] 25[address] [facility] [place] [address] Mvmg, Gml Mobile Home Draw 25[address] [facility] [place] [address] 09/17/2024 11:15 AM EST Office Visit Urology, [facility] 132 [facility] [place] [address] Kalpesh Funes MD [address] [place] [address] 09/26/2024 7:00 AM EST Laboratory Lab Mobile Phlebotomy MVMG 2520 [employer] [facility] [place] [address] Mvmg, Gml Mobile Home Draw 2520 [facility] [place] [address] 03/12/2025 3:30 PM EDT Home Visit Care at Home [address] [place], [place] [id number] Betina Jacob PA-C [address] [place], [place] [address] Scheduled Procedures Name Priority Associated Diagnoses Date/Ti pa COLONOSCOPY FLEXIBLE PROXIMAL DIAGNOSTIC Special screening for [...] Additional history exists CKD PHOS USE SMARTSET 82920 12/07/202411/23, 12/26/2022, 06/21/2021 Depression Screening 03/07/2025 03/07/2024 CKD HGB USE SMARTSET 41227 05/01/202505/01, 05/01/2024, 04/23/2024, Additional history exists DTaP,Tdap,and [...] this encounter Medical Devices Implanted Type Area Hand Finisher Device Identifier Shelf Expiration Date Model / Serial / Lot Lens Intraoc 22.5 - [id number] - [id number] Implanted:Qty: 1 on 05/22/2018 by Jasbir Maurer MD at OR [facility] Right: Eye [employer] 11/22/2022 [id number] / [id number] / [id number] Lens Intraoc 21.0 - [id number] - [id number] Implanted:Qty: 1 on 06/05/2018 by Jasbir Maurer MD at OR [facility] Left: Eye [employer] 12/20/2022 [id number] / [id number] / Duraclip 16mm Xlg Repostn - [id number] Implanted:Qty: 1 on 04/12/2024 by Edilberto Lujan MD at OR [facility] [employer] [id number] 12/08/2024 [id number] / / [id number] Duraclip 16mm Xlg Repostn - [id number] Implanted:Qty: 1 on 04/12/2024 by Edilberto Lujan MD at OR [facility] [employer] [id number] 12/08/2024 [id number] / / [id number] Duraclip 16mm Xlg Repostn - [id number] Implanted:Qty: 1 on 04/12/2024 by Edilberto Lujan MD at OR [facility] [employer] [id number] 12/08/2024 [id number] / / [id number] documented as of this encounter Visit Diagnoses Diagnosis Paroxysmal atrial fibrillation (HCC)- Primary Atrial fibrillation Special screening for malignant neoplasms, colon documented in this encounter Advance Directives * Full Code [...] Agents on File Name Relationship Healthcare Agent [facility] p Communication Ashley Jose Spouse Health Care Power of Attor mayela Care Teams Therapy Aide Relationship Specialty Start Date End Date Michael Hinton MD [address] [place] [address] PCP - General Family Medicine 08/07/17 documented as of this encounter
--- OUTSIDE RECORDS SUMMARY | 2024-05-04 16:48 | External Medical Summary | Summary of Care ---
Author Name Unknown Organization [facility] Address [address] [place] [address] Phone [phone] Care Team Providers Care Hand Assembler Name Role Phone Michael Hinton MD Primary Care Provider [phone] Encounter Details Date Type Department Care Team (Late st Contact Info) Description 04/22/2024 Orders Only Lab Mobile Phlebotomy [facility] [address] [place] [address] Ronaldo Mcclellan MD [address] [place] [address] Anemia due to chronic blood loss* Allergies Active Allergy Reactions Criticality Noted Date Comments Fabiano Inhibitors Cough 06/09/2017 Carbidopa W-Levodopa 03/17/2021 Constipation Nsaids Rash 05/17/2018 Contraindicated per yarn sorter documented as of this encounter (statuses as of 04/22/2024) Medications Medication Sig Dispensed Refills Start Date [...] MORNING 90 Tablet 3 03/21/2023 05/10/2024 Active Donepezil HCl 10 MG Oral Tablet [...] mitral valve regurgitation,Coron daniel artery disease involving three affiliated coronary artery of three affiliated heart without angina pectoris,Stage 3b chronic kidney disease (HCC) Take 1 Tablet by mouth in the morning. 180 Tablet 3 03/13/2024 Active Amantadine HCl 100 MG Oral Capsule (Symmetrel) Take 1 capsule (100 mg total) by mouth daily . 90 Capsule 03/19/2024 Active Cephalexin 500 MG Oral Capsule Take 1 Capsule by mouth in the morning and 1 Capsule at noon and 1 Capsule before bedtime. Do all this for 7 days. Do not start before April 18, 2024. 21 Capsule 04/18/2024 04/25/2024 Active documented as of this encounter (statuses as of 04/22/2024) Active Problems Problem Noted Date Diagnosed Date [...] 07/28/2021 Last Assessment & Plan: Follows with [facility] hematology Routine labs monitored by hem/onc [...] as of this encounter (statuses as of 04/22/2024) Resolved Problems Problem Noted Date Diagnosed Date [...] as of this encounter (statuses as of 04/22/2024) Immunizations Name Administration Dates Next Due COVID-19 mRNA, LNP-s, No Pre serve, 2-Dose Series (Zeis Excelsa) 11/03/2021,12/19/2020,11/28/2020 Covid-19 Ad26, Single Dose (Soy/J&J) 12/19/2020,11/28/2020 [...] Care Team (Late st Contact Info) Description 04/23/2024 7:15 AM EDT Laboratory [facility]le[facility] [address] [place] [address] [facility] [address] [place] [address] 05/08/2024 2:30 PM EDT Telemedicine [facility] [address] [place] [address] Berny Power PA-C [address] [place] [address] Meri Mae, Community Health Marble Finisher [address] [place] [address] 05/09/2024 7:00 AM EDT Laboratory [facility]le[facility] [address] [place] [address] [address] [facility] [address] [place] [address] 05/23/2024 7:00 AM EDT Laboratory [facility] [address] [place] [address] [facility] [address] [employer], [place] [address] 05/31/2024 10:00 AM EDT Home Visit [facility] [address] [place] [address] Peggy De, RN [address] [place] [address] 06/06/2024 7:00 AM EDT Laboratory [facility] [address] [place] [address] [facility] [address] [place] [address] 06/20/2024 7:00 AM EDT Laboratory [facility] [address] [place] [address] [facility], [facility] Draw [address] [place] [address] 07/04/2024 7:00 AM EDT Laboratory [facility]le[facility] [address] [place], [place] [address] [facility], [facility] Draw [address] [place] [address] 07/18/2024 7:00 AM EDT Laboratory Lab [facility] Phle[facility] [address] [place], [place] [address] [facility], [facility] Draw [address] [facility] [place] [address] 08/01/2024 7:00 AM EDT Laboratory Lab [facility] Phlebotomy [facility] [address] [place], [place] [address] [facility], [facility] Draw [address] [facility] [place] [address] 08/13/2024 8:00 AM EDT Office Visit Cardiology, [facility] [address] [place] [address] Dominick Benz, DO [address] [place] [address] 08/15/2024 7:00 AM EDT Laboratory [facility] Phlebot[facility] [address] [place] [address] [facility], [facility] [address] [place] [address] 08/29/2024 7:00 AM EST Laboratory [facility] Phlebotomy [facility] [address] [place] [address] [facility], [facility] Draw [address] [place], [place] [address] 08/29/2024 8:00 AM EST Hospital Encounter ENDO OSS, Endoscopy Room [facility] [address] [place], [place] [phone] Arnie Shrestha MD [address] [place] [address] 08/29/2024 8:00 AM EST - 08/29/2024 8:30 AM EST Surgery ENDO OSS, Endoscopy Room [facility] [address] [place] [address] Arnie Shrestha MD [address] [place] [address] COLONOSCOPY FLEXIBLE PROXIMAL DIAGNOSTIC 09/02/2024 1:45 PM EST Office Visit Dermatology [facility] [address] [facility] [place] [address] Osvaldo Liu MD [address] [facility] [place] [address] 09/12/2024 7:00 AM EST Laboratory [facility] [address] [facility] [place] [address] [facility], Gm [facility] Home Draw [address] [facility] [place] [address] 09/17/2024 11:15 AM EST Office Visit Urology, [facility] [address] [place] [address] Kalpesh Funes MD [address] [place] [address] 09/26/2024 7:00 AM EST Laboratory Lab [facility] Phlebotomy [facility] [address] [place] [address] [facility], [facility]ml [facility] Draw [address] [facility] [place] [address] 03/12/2025 3:30 PM EDT Home Visit Care at Home [address] [place] [address] Betina Jacob PA-C [address] [facility] [place] [address] Scheduled Orders Name Type Priority Associated Diagnoses Orde r Schedule CBC WITH WBC DIFFERENTIAL Lab Routine Anemia due to chronic blood loss Expected: 04/23/2024, Expires: 04/22/2025 Scheduled Procedures Name Priority Associated Diagnoses Date/Ti [...] Additional history exists CKD PHOS USE SMARTSET 89496 12/07/202411/23, 12/26/2022, 06/21/2021 Depression Screening 03/07/2025 03/07/2024 CKD HGB USE SMARTSET 17887 04/19/202504/19, 04/19/2024, 04/15/2024, Additional history exists Colonoscopy 10/18/2026 10/18/2023, 09/23, 09/12/2022, Additional history exists DTaP,Tdap,and Td Vaccines (4 [...] this encounter Medical Devices Implanted Type Area Wine And Spirits Clerk Device Identifier Shelf Expiration Date Model / Serial / Lot Lens Intraoc 22.5 - [id number] - [id number] Implanted:Qty: 1 on 05/22/2018 by Jasbir Maurer MD at OR [facility] Right: Eye [employer] 11/22/2022 [id number] / [id number] / [id number] Lens Intraoc 21.0 - [id number] - [id number] Implanted:Qty: 1 on 06/05/2018 by Jasbir Maurer MD at OR [facility] Left: Eye [employer]CH [employer] LOMB 12/20/2022 [id number] / [id number] / Duraclip 16mm Xlg Repostn - [id number] Implanted:Qty: 1 on 04/12/2024 by Edilberto Lujan MD at OR [facility] [employer] NACHO [id number] 12/08/2024 [id number] / / [id number] Duraclip 16mm Xlg Repostn - [id number] Implanted:Qty: 1 on 04/12/2024 by Edilberto Lujan MD at OR [facility] [employer] [id number] 12/08/2024 [id number] / / [id number] Duraclip 16mm Xlg Repostn - [id number] Implanted:Qty: 1 on 04/12/2024 by Edilberto Lujan MD at OR [facility] [employer] [id number] 12/08/2024 [id number] / / [id number] documented as of this encounter Visit Diagnoses Diagnosis Anemia due to chronic blood loss- Primary Iron deficiency anemia secondary to blood loss (chronic) Special screening for malignant neoplasms, colon documented [...] Agents on File Name Relationship Healthcare Agent [facility] Communication Ashley Fantasma Jose Spouse Health Care Power of Attor mayela Care Teams Hand Assembler Relationship Specialty Start Date End Date Michael Hinton MD [address] [place] [address] PCP - General Family Medicine 08/07/17 documented as of this encounter
--- OUTSIDE RECORDS SUMMARY | 2024-05-04 16:48 | External Medical Summary ---
Author Name Unknown Address Unknown Organization [id number]:[facility] [place] [address] [facility] [address] Laboratory Report Ordering Provider Test Date Status ANGEL ANDERSON 05/02/2024 13:31:23 Final Observation Date Value Abnormality Reference (Units ) Status Campylobacter sp DNA.diarrheagenic [Presence] in Stool by JOAQUINA with probe detection 05/02/2024 13:31:23 Negative Negative Final Salmonella sp rpoD gene [Presence] in Stool by JOAQUINA with probe detection 05/02/2024 13:31:23 Negative Negative Final Shigella species+EIEC invasion plasmid antigen H ipaH gene [Presence] in Stool by JOAQUINA with probe detection 05/02/2024 13:31:23 Negative Negative Final Vibrio sp DNA [Identifier] in Specimen by JOAQUINA with probe detection 05/02/2024 13:31:23 Negative Negative Final Yersinia enterocolitica recN gene [Presence] in Stool by JOAQUINA with probe detection 05/02/2024 13:31:23 Negative Negative Final Escherichia coli Stx1 toxin stx1 gene [Presence] in Stool by JOAQUINA with probe detection 05/02/2024 13:31:23 Negative Negative Final Escherichia coli Stx2 toxin stx2 gene [Presence] in Stool by JOAQUINA with probe detection 05/02/2024 13:31:23 Negative Negative Final Norovirus genogroups I and II RNA panel - Stool by JOAQUINA with probe detection 05/02/2024 13:31:23 Negative Negative Final Rotavirus A RNA [Presence] in Stool by JOAQUINA with probe detection 05/02/2024 13:31:23 Negative Negative Final Performing Location [facility] [place] [address] [place] [address] [place] [address]
--- OUTSIDE RECORDS SUMMARY | 2024-05-04 16:48 | External Medical Summary | Summary of Care ---
Author Name Unknown Organization [facility] Address [address] [place] [address] Phone [phone] Care Team Providers Care Manager New Product Name Role Phone Michael Hinton MD Primary Care Provider [phone] Encounter Details Date Type Department Care Team (Late st Contact Info) Description 04/24/2024 Orders Only PATIENT PORTAL DO NOT DELETE THIS DEPT USED BY [place] [address] Allergies Active Allergy Reactions Criticality Noted Date Comments Fabiano Inhibitors Cough 06/09/2017 Carbidopa W-Levodopa 03/17/2021 Constipation Nsaids Rash 05/17/2018 Contraindicated per cutter grinder documented as of this encounter (statuses as of 04/24/2024) Medications Medication Sig Dispensed Refills Start Date [...] mitral valve regurgitation,Coron daniel artery disease involving iqugmiut coronary artery of iqugmiut heart without angina pectoris,Stage 3b chronic kidney [...] as of this encounter (statuses as of 04/24/2024) Active Problems Problem Noted Date Diagnosed Date [...] knees 03/21/2018 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 angina pectoris 03/21/2018 Last Assessment [...] as of this encounter (statuses as of 04/24/2024) Resolved Problems Problem Noted Date Diagnosed Date [...] Dyslipidemia, goal LDL below 70 03/20/2013 06/09/2017 FBAIANO inhibitor intolerance 11/13/2012 Overview: See scanned document [...] as of this encounter (statuses as of 04/24/2024) Immunizations Name Administration Dates Next Due COVID-19 mRNA, LNP-s, No Pre serve, 2-Dose Series (Meet You) 11/03/2021,12/19/2020,11/28/2020 Covid-19 Ad26, Single Dose (Soy/J&J) 12/19/2020,11/28/2020 [...] 03/07/2024 Does the household have a re lar source of income? (Household - for ages [...] 2:30 PM EDT Telemedicine [facility] [address] [facility] [place] [place] [address] Berny Power PA-C [address] [facility] [place] [address] Meri Mae, Community [facility] Vineyard Supervisor [address] [place] [address] 05/09/2024 7:00 AM EDT Laboratory Lab Mobile Phlebotomy [facility] [address] [place] [address] [facility], Gml Mobile Home Draw [address] [place] [address] 05/23/2024 7:00 AM EDT Laboratory Lab [facility] Phlebot[facility] [address] [place] [address] [facility], [facility]ml [facility] Draw [address] [place] [address] 05/31/2024 10:00 AM EDT [facility] Visit [facility] [address] [facility] [place] [address] Peggy De, RN [address] [facility] [place] [address] 06/06/2024 7:00 AM EDT Laboratory Lab Mobile Phlebotomy [facility] [address] [place] [address] M[facility], Gml Mobile Home Draw [address] [place] [address] 06/20/2024 7:00 AM EDT Laboratory Lab Mobile Phlebotomy [facility] [address] [place] [address] M[facility], Gml Mobile Home Draw [address] [place] [address] 07/04/2024 7:00 AM EDT Laboratory Lab Mobile Phlebotomy [facility] [address] [place], [place] [address] Mv[facility], Gml Mobile Home Draw [address] [facility] [place] [address] 07/18/2024 7:00 AM EDT Laboratory Lab Mobile Phlebotomy [facility] [address] [place], [place] [address] M[facility], Gml Mobile Home Draw [address] [facility] [place] [address] 08/01/2024 7:00 AM EDT Laboratory Lab Mobile Phlebotomy [facility] [address] [facility] [place] [address] Mv[facility], Gml Mobile Home Draw [address] [facility] [place] [address] 08/13/2024 8:00 AM EDT Office Visit Cardiology, [facility] [address] [place] [address] Dominick Benz, [address] [place] [address] 08/15/2024 7:00 AM EDT Laboratory Lab Mobile Phlebotomy [facility] [address] [place], [place] [address] Mv[facility], Gml Mobile Home Draw [address] [facility] [place] [address] 08/29/2024 7:00 AM EST Laboratory Lab Mobile Phlebotomy [facility] [address] [place], [place] [address] [facility], Gml Mobile Home Draw [address] [facility] [place] [address] 08/29/2024 8:00 AM EST Hospital Encounter ENDO [facility], Endoscopy Room [facility] [address] [place] [address] Arnie Shrestha MD [address] [place] [address] 08/29/2024 8:00 AM EST - 08/29/2024 8:30 AM EST Surgery ENDO [facility], Endoscopy Room [facility] [address] [facility] [place] [phone] Arnie Shrestha MD [address] [facility] [place] [address] COLONOSCOPY FLEXIBLE PROXIMAL DIAGNOSTIC 09/02/2024 1:45 PM EST Office Visit Dermatology [facility] [address] [facility] [place] [address] Osvaldo Liu MD [address] [facility] [place] [address] 09/12/2024 7:00 AM EST Laboratory Lab Mobile Phlebotomy [facility] [address] [facility] [place] [address] Mv[facility], Gml Mobile Home Draw [address] [facility] [place] [address] 09/17/2024 11:15 AM EST Office Visit Urology, [facility] [address] [facility] [place] [address] Kalpesh Funes MD [address] [place] [address] 09/26/2024 7:00 AM EST Laboratory Lab Mobile Phlebotomy [facility] [address] [place] [address] Mv[facility], Gml Mobile Home Draw [address] [facility] [place] [address] 03/12/2025 3:30 PM EDT Home Visit Care at Home [address] [place] [address] Betina Jacob PA-C [address] [place], [place] [address] Scheduled Procedures Name Priority Associated Diagnoses Date/Ti me COLONOSCOPY FLEXIBLE PROXIMAL DIAGNOSTIC Special screening for malignant neoplasms, colon 08/29/2024 8:00 AM EST Health Maintenance Due Date Last Done Comments Diabetic Foot Exam 03/27/2021 03/27/2020, 08/23/2018 COVID-19 Vaccine (24 season) 2023 11/03/2021, 12/19/2020, 12/19/2020, Additional history exists HbA1c 10/12/2023 04/12/2023, 0303/2023, 03/22/2022, Additional history exists Diabetic Eye Exam 11/01/2023 11/01/2022, , 11/01/2022, Additional history exists Albumin/Creatinine Ratio 12/27/2023 023, 03/08/2019, 04/09/2014 Influenza Vaccine (FLU shot) (#1) 2024 08/02/2023, 07/13/2022, 07/23/2021, Additional history exists GFR 10/19/2024 04/19/2024, 03/24, 03/28/2024, Additional history exists CKD PHOS USE SMARTSET 41927 12/07/202411/23, 12/26/2022, 06/21/2021 Depression Screening 03/07/2025 03/07/2024 CKD HGB USE SMARTSET 15883 04/23/202504/23, 04/23/2024, 04/19/2024, Additional history exists Colonoscopy 10/18/2026 10/18/2023, 09/23, 09/12/2022, Additional history exists DTaP,Tdap,and Td Vaccines (4 - Td or Tdap) 10/24/2029 10/24/2019, 10/24/2019, 11/03/2008, Additional history exists Pneumococcal Vaccine: 65+ Years Completed 04/27/2016, 08/27/2009 Zoster Vaccines Completed 10/24/2019, 11/2019, 07/31/2019, Additional history exists HPV (Gardasil) Vaccine Aged Out No lo nger eligible based on patient's age to complete this topic Hepatitis B Vaccine Aged Out No longe r eligible based on patient's age to complete this topic MENINGOCOCCAL (MENACTRA/MENVEO) Aged Out No longer eligible based on patient's age to complete this topic documented as of this encounter Medical Devices Implanted Type Area Journeyman Press Operator Device Identifier Shelf Expiration Date Model / Serial / Lot Lens Intraoc 22.5 - [id number] - [id number] Implanted:Qty: 1 on 05/22/2018 by Jasbir Maurer MD at OR [facility] Right: Eye [employer] 11/22/2022 [id number] / [id number] / [id number] Lens Intraoc 21.0 - [id number] - [id number] Implanted:Qty: 1 on 06/05/2018 by Jasbir Maurer MD at OR [facility] Left: Eye [employer] LOMB 12/20/2022 [id number] / [id number] / Duraclip 16mm Xlg Repostn - [id number] Implanted:Qty: 1 on 04/12/2024 by Edilberto Lujan MD at OR [facility] [employer] (f. [employer]) [id number] 12/08/2024 [id number] / / [id number] Duraclip 16mm Xlg Repostn - [id number] Implanted:Qty: 1 on 04/12/2024 by Edilberto Lujan MD at OR [facility] [employer]ACHO [id number] 12/08/2024 [id number] / / [id number] Duraclip 16mm Xlg Repostn - [id number] Implanted:Qty: 1 on 04/12/2024 by Edilberto Lujan MD at OR [facility] [employer]4EAMED Building [employer] [id number] 12/08/2024 [id number] / / [id number] documented as of this encounter Advance Directives [...] File Name [facility] Ashley Fantasma Jose Spouse Health Care Power of Attor mayela Care Teams Manager New Product Relationship Specialty Start Date End Date Michael Hinton MD [address] [place] [address] PCP - General Family Medicine 08/07/17 documented as of this encounter
--- OUTSIDE RECORDS SUMMARY | 2024-05-04 16:48 | External Medical Summary ---
Author Name Unknown Address Unknown Organization K[facility] [address] [place] [address] Laboratory Report Ordering Provider Test Date Status GUERRERO CHAUHAN 04/23/2024 09:51:00 Final Observation Date Value Abnormality Reference (Units ) Status Nucleated erythrocytes/100 leukocytes [Ratio] in Blood by Automated count 04/23/2024 09:51:00 Final Performing Location [facility] - [address] [place] [address]
--- OUTSIDE RECORDS SUMMARY | 2024-05-04 16:48 | External Medical Summary | Summary of Care ---
Author Name Unknown Organization [facility] Address [address] [place] [address] Phone [phone] Care Team Providers Care Senior Resident Care Director Name Role Phone Michael Hinton MD Primary Care Provider [phone] Reason for Visit * Reason Onset Date Comments Medication Refill 05/02/2024 Encounter Details Date Type Department Care Team (Late st Contact Info) Description 05/02/2024 Refill Family Practice [facility] [address] [place] [address] Michael Hinton MD [address] [place] [address] Allergies Active Allergy Reactions Criticality Noted Date Comments Fabiano Inhibitors Cough 06/09/2017 Carbidopa W-Levodopa 03/17/2021 Constipation Nsaids Rash 05/17/2018 Contraindicated per print graphic designer documented as of this encounter (statuses as of 05/02/2024) Medications Medication Sig Dispensed Refills Start Date End Date Status Glucose Blood (ONETOUCH VERIO) STRPIndications:Typ e 2 diabetes mellitus with hemoglobin A1c goal of less than 8.0% ([facility]) Use up to 4 times [...] MORNING 90 Tablet 3 03/21/2023 05/10/2024 Active DIURETIC TITRATION PLAN If no [...] mitral valve regurgitation,Coron daniel artery disease involving [place] coronary artery of [place] heart without angina pectoris,Stage 3b chronic kidney [...] mouth every morning 90 Tablet 04/29/2024 Active documented as of this encounter (statuses [...] knees 03/21/2018 Coronary artery disease invo lving [place] coronary artery of [place] heart without angina pectoris 03/21/2018 Last Assessment [...] 11/13/[address] bains [facility]. Coronary artery disease due to [...] encounter Miscellaneous Notes * Telephone Encounter - Candy Emerson CPhT - 05/02/2024 8:45 AM EDT Cardiology , transferred Thank you, Candy Emerson CPhT Online Merchandising Specialist [facility] 05/02/2024,8:45 AM documented in this encounter Plan of Treatment Upcoming Encounters Date Type Department Care Team (Late st Contact Info) Description 05/08/2024 2:30 PM EDT Telemedicine [facility] [place] [address] [place] [address] Berny Power PA-C [address] [place] [address] Meri Mae, Community Health Civil Preparedness Coordinator [address] [place] [address] 05/09/2024 7:00 AM EDT Laboratory Lab [facility] [address] [place], [place] [address] Mvmg, [facility] Draw [address] [place], [place] [address] 05/23/2024 7:00 AM EDT Laboratory [facility] Phlebot[facility] [address] [place] [address] Mvmg, [facility] Home Draw [address] [place], [place] [address] 05/31/2024 10:00 AM EDT [facility] Visit [facility] [address] [place] [address] Peggy De, RN [address] [place] [address] 06/06/2024 7:00 AM EDT Laboratory Lab [facility] Phle[facility] [address] [place] [address] Mvmg, G[facility] Draw [address] [place] [address] 06/20/2024 7:00 AM EDT Laboratory Lab [facility] Phlebot[facility] [address] [place] [address] Mvmg, [facility] Draw [address] [place] [address] 07/04/2024 7:00 AM EDT Laboratory Lab [facility] [address] [place] [address] Mvmg, [facility] Draw [address] [place] [address] 07/18/2024 7:00 AM EDT Laboratory [facility]lebot[facility] [address] [place], [place] [address] Mvmg, Gml [facility] Home Draw [address] [place] [address] 08/01/2024 7:00 AM EDT Laboratory [facility] [address] [place], [place] [address] Mvmg, Gml [facility] Draw [address] [place] [address] 08/13/2024 8:00 AM EDT Office Visit Cardiology, [facility] [address] [facility] [place] [address] Dominick Benz, [address] [place] [address] 08/15/2024 7:00 AM EDT Laboratory Lab [facility]lebot[facility] [address] [place] [address] Mvmg, Gml [facility] Draw [address] [place] [address] 08/29/2024 7:00 AM EST Laboratory Lab [facility] Phlebotomy [facility] [address] [place] [address] Mvmg, Gml [facility] Draw [address] [place], [place] [address] 08/29/2024 8:00 AM EST Hospital Encounter ENDO [facility], Endoscopy Room [facility] [address] [place] [phone] Arnie Shrestha MD [address] [place] [address] 08/29/2024 8:00 AM EST - 08/29/2024 8:30 AM EST Surgery ENDO [facility], Endoscopy Room [facility] [address] [place] [phone] Arnie Shrestha MD [address] [place] [address] COLONOSCOPY FLEXIBLE PROXIMAL DIAGNOSTIC 09/02/2024 1:45 PM EST Office Visit Dermatology [facility] [address] [facility] [place] [address] Osvaldo Liu MD [address] [facility] [place] [address] 09/12/2024 7:00 AM EST Laboratory Lab [facility] Phlebotomy [facility] [address] [facility] [place] [address] Mvmg, Gml Mobile Home Draw [address] [facility] [place] [address] 09/17/2024 11:15 AM EST Office Visit Urology, [facility] [address] [place] [address] Kalpesh Funes MD [address] [place] [address] 09/26/2024 7:00 AM EST Laboratory Lab Mobile Phlebotomy [facility] [address] [place] [address] Mvmg, Gml Mobile Home Draw [address] [facility] [place] [address] 03/12/2025 3:30 PM EDT Home Visit Care at Home [address] [place] [address] Betina Jacob PA-C [address] [place], [place] [id number] Scheduled Procedures Name Priority Associated Diagnoses Date/Ti [...] Additional history exists CKD PHOS USE SMARTSET 62991 12/07/202411/23, 12/26/2022, 06/21/2021 Depression Screening 03/07/2025 03/07/2024 CKD HGB USE SMARTSET 97904 05/01/202505/01, 05/01/2024, 04/23/2024, Additional history exists DTaP,Tdap,and [...] this encounter Medical Devices Implanted Type Area Blast Furnace Keeper Device Identifier Shelf Expiration Date Model / Serial / Lot Lens Intraoc 22.5 - [id number] - [id number] Implanted:Qty: 1 on 05/22/2018 by Jasbir Maurer MD at OR [facility] Right: Eye [employer] 11/22/2022 [id number] / [id number] / [id number] Lens Intraoc 21.0 - [id number] - [id number] Implanted:Qty: 1 on 06/05/2018 by Jasbir Maurer MD at OR [facility] Left: Eye [employer]OMB 12/20/2022 [id number] / [id number] / Duraclip 16mm Xlg Repostn - [id number] Implanted:Qty: 1 on 04/12/2024 by Edilberto Lujan MD at OR [facility] [employer] [id number] 12/08/2024 [id number] / / [id number] Duraclip 16mm Xlg Repostn - [id number] Implanted:Qty: 1 on 04/12/2024 by Edilberto Lujan MD at OR [facility] [employer] [id number] 12/08/2024 [id number] / / [id number] Duraclip 16mm Xlg Repostn - [id number] Implanted:Qty: 1 on 04/12/2024 by Edilberto Lujan MD at OR [facility] [employer] [id number] 12/08/2024 [id number] / / [id number] documented as of this encounter Advance Directives [...] Care Power of Attor mayela Care Teams Senior Resident Care Director Relationship Specialty Start Date End Date Michael Hinton MD [address] [place] [address] PCP - General Family Medicine 08/07/17 documented as of this encounter
--- OUTSIDE RECORDS SUMMARY | 2024-05-04 16:48 | External Medical Summary | Summary of Care ---
Author Name Unknown Organization [facility] Address [address] [place] [address] Phone [phone] Care Team Providers Care Leach Cell Operator Name Role Phone Michael Hinton MD Primary Care Provider [phone] Reason for Visit * Reason Comments Outpatient Testing Encounter Details Date Type Department Care Team (Late st Contact Info) Description 05/01/2024 10:10 AM EDT Laboratory Laboratory, [facility] [address] [place] [address] [facility] [address] [place] [address] Fatigue, unspecified type; Acute blood loss anemia; AVM (arteriovenous malformation) of small bowel, acquired Allergies Active Allergy Reactions Criticality Noted Date Comments Fabiano Inhibitors Cough 06/09/2017 Carbidopa W-Levodopa 03/17/2021 Constipation Nsaids Rash 05/17/2018 Contraindicated per big data solutions architect documented as of this encounter (statuses as of 05/01/2024) Medications Medication Sig Dispensed Refills Start Date [...] mitral valve regurgitation,Coron daniel artery disease involving [place] coronary artery of [place] heart without angina pectoris,Stage 3b chronic kidney [...] as of this encounter (statuses as of 05/01/2024) Active Problems Problem Noted Date Diagnosed Date [...] 07/28/2021 Last Assessment & Plan: Follows with [facility] hematology Routine labs monitored by hem/onc Update [...] knees 03/21/2018 Coronary artery disease invo lving [place] coronary artery of [place] heart without angina pectoris 03/21/2018 Last Assessment [...] as of this encounter (statuses as of 05/01/2024) Resolved Problems Problem Noted Date Diagnosed Date [...] document from 11/13/[address] bains [facility]. 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y [...] as of this encounter (statuses as of 05/01/2024) Immunizations Name Administration Dates Next Due COVID-19 [...] No 03/07/2024 Does the household have a [facility] source of income? (Household - for ages [...] 2:30 PM EDT Telemedicine [facility], [facility] 132 [facility] [place] [address] Berny Power PA-C [address] [facility] [place] [address] Meri Mae, Community Health Owner Oral Surgeon [address] [place] [address] 05/09/2024 7:00 AM EDT Laboratory Lab [facility] Phlebotomy [facility] [address] [place] [address] Mvmg, Gml Mobile Home Draw [address] [place], [place] [address] 05/23/2024 7:00 AM EDT Laboratory Lab [facility] Phlebotomy [facility] [address] [place] [address] Mvmg, Gml Mobile Home Draw [address] [place], [place] [address] 05/31/2024 10:00 AM EDT Home Visit [facility], [facility] [place] [address] Peggy De RN [address] [place] [address] 06/06/2024 7:00 AM EDT Laboratory Lab [facility] Phlebot[facility] [address] [place], [place] [address] Mvmg, Gml Mobile Home Draw [address] [place], [place] [address] 06/20/2024 7:00 AM EDT Laboratory Lab [facility] Phlebotomy [facility] [address] [place] [address] Mvmg, Gml Mobile Home Draw [address] [place], [place] [address] 07/04/2024 7:00 AM EDT Laboratory Lab [facility] Phlebot[facility] [address] [place] [address] Mvmg, Gml Mobile Home Draw [address] [facility] [place] [address] 07/18/2024 7:00 AM EDT Laboratory Lab [facility]lebot[facility] [address] [place], [place] [address] Mvmg, Gml Mobile Home Draw [address] [facility] [place] [address] 08/01/2024 7:00 AM EDT Laboratory Lab [facility] Phlebotomy [facility] [address] [facility] [place] [address] Mvmg, Gml Mobile Home Draw [address] [facility] [place] [address] 08/13/2024 8:00 AM EDT Office Visit Cardiology, [facility] [address] [place] [address] Dominick Benz DO [address] [place] [address] 08/15/2024 7:00 AM EDT Laboratory Lab Mobile Phlebotomy [facility] [address] [place], [place] [address] Mvmg, Gml Mobile Home Draw [address] [place], [place] [address] 08/29/2024 7:00 AM EST Laboratory Lab [facility] Phlebotomy [facility] [address] [place], [place] [address] Mvmg, Gml Mobile Home Draw [address] [facility] [place] [address] 08/29/2024 8:00 AM EST Hospital Encounter ENDO [facility], Endoscopy Room [facility] [address] [place] [phone] Arnie Shrestha MD [address] [place] [address] 08/29/2024 8:00 AM EST - 08/29/2024 8:30 AM EST Surgery ENDO [facility], Endoscopy Room [facility] [address] [place] [phone] Arnie Shrestha MD [address] [address] COLONOSCOPY FLEXIBLE PROXIMAL DIAGNOSTIC 09/02/2024 1:45 PM EST Office Visit Dermatology [facility] [address] [facility] [place] [address] Osvaldo Liu MD [address] [facility] [place] [address] 09/12/2024 7:00 AM EST Laboratory Lab Mobile Phlebotomy [facility] [address] [place] [address] Mvmg, Gml Mobile Home Draw [address] [place] [address] 09/17/2024 11:15 AM EST Office Visit Urology, [facility] [address] [place] [address] Kalpesh Funes MD [address] [place] [address] 09/26/2024 7:00 AM EST Laboratory Lab Mobile Phlebotomy [facility] [address] [place] [address] Mvmg, Gml Mobile Home Draw [address] [place] [address] 03/12/2025 3:30 PM EDT Home Visit Care at Home [address] [facility] [place] [id number] Betina Jacob PA-C [address] [facility] [place] [id number] Scheduled Procedures Name Priority Associated Diagnoses Date/Ti [...] Additional history exists CKD PHOS USE SMARTSET 71692 12/07/202411/23, 12/26/2022, 06/21/2021 Depression Screening 03/07/2025 03/07/2024 CKD HGB USE SMARTSET 97415 04/23/202505/01, 05/01/2024, 04/23/2024, Additional history exists DTaP,Tdap,and Td [...] this encounter Medical Devices Implanted Type Area Employee Welfare Manager Device Identifier Shelf Expiration Date Model / Serial / Lot Lens Intraoc 22.5 - [id number] - [id number] Implanted:Qty: 1 on 05/22/2018 by Jasbir Maurer MD at OR [facility] Right: Eye [employer] 11/22/2022 [id number] / [id number] / [id number] Lens Intraoc 21.0 - [id number] - [id number] Implanted:Qty: 1 on 06/05/2018 by Jasbir Maurer MD at OR [facility] Left: Eye BAUSCH [employer] LOMB 12/20/2022 [id number] / [id number] / Duraclip 16mm Xlg Repostn - [id number] Implanted:Qty: 1 on 04/12/2024 by Edilberto Lujan MD at OR [facility] Niko Niko [id number] 12/08/2024 [id number] / / [id number] Duraclip 16mm Xlg Repostn - [id number] Implanted:Qty: 1 on 04/12/2024 by Edilberto Lujan MD at OR [facility] Niko Niko [id number] 12/08/2024 [id number] / / [id number] Duraclip 16mm Xlg Repostn - [id number] Implanted:Qty: 1 on 04/12/2024 by Edilberto Lujan MD at OR [facility] Niko Niko [id number] 12/08/2024 [id number] / / [id number] documented as of this encounter Procedures Procedure [...] 0.20 K/uL 05/01/2024 10:19 AM EDT LAB[facility]10 Blood Venous blood specimen / Unknown Venipuncture / Unknown 05/01/2024 10:13 AM EDT 05/01/2024 10:13 AM EDT [facility] BLOOD ORDERABL ES [facility] [place] [place] [address] * (ABNORMAL) CBC (05/01/2024 10:13 AM EDT) WBC 7.28 4.00 - 10.80 K/uL 05/01/2024 10:19 AM EDT [facility]10 RBC 3.21 4.50 - 5.25 M/uL 05/01/2024 10:19 AM EDT [facility] [place] [facility]10 HGB 10.3(L) 14.0 - 16.8 g/dL 05/01/2024 10:19 AM EDT [facility] [place] [facility]10 HCT 31.8(L) 40.0 - 48.4 % 05/01/2024 10:19 AM EDT [facility] [place] [facility] [facility]10 MCV 99.1 82.0 - 99.5 fL 05/01/2024 10:19 AM EDT [facility] [place] [facility]10 MCH 32.1 27.0 - 34.0 pg 05/01/2024 10:19 AM EDT [facility] [place] [facility]10 MCHC 32.4 32.0 - 36.0 g/dL 05/01/2024 10:19 AM EDT [facility] [place] [facility]10 RDW 15.3 11.5 - 15.5 % [...] [facility] BLOOD ORDERABL [facility] [place] [facility]10 [address] [place] [address] documented in this encounter Visit Diagnoses Diagnosis Fatigue, unspecified type Acute blood loss anemia Acute posthemorrhagic anemia AVM (arteriovenous malformation) of small bowel, acquired Special screening for malignant neoplasms, colon documented [...] Agents on File Name Relationship Healthcare Agent [facility] Communication Ashley Jose Spouse Health Care Power of Attor mayela Care Teams Leach Cell Operator Relationship Specialty Start Date End Date Michael Hinton MD [address] [place] [address] PCP - General Family Medicine 08/07/17 documented as of this encounter
--- OUTSIDE RECORDS SUMMARY | 2024-05-04 16:48 | External Medical Summary | Summary of Care ---
Author Name Unknown Organization [facility] Address [address] [place] [address] Phone [phone] Care Team Providers Care Screwdown Operator Name Role Phone Michael Hinton MD Primary Care Provider [phone] Reason for Visit * Reason Comments [facility]: Maintenance Encounter Details Date Type Department Care Team (Late st Contact Info) Description 04/19/2024 11:00 AM EDT [facility] Visit [facility], [facility] [address] [place] [address] Peggy De, RN [address] [place] [address] Allergies Active Allergy Reactions Criticality Noted Date Comments Fabiano Inhibitors Cough 06/09/2017 Carbidopa W-Levodopa 03/17/2021 Constipation Nsaids Rash 05/17/2018 Contraindicated per automation control integrator documented as of this encounter (statuses as of 04/23/2024) Medications Medication Sig Dispensed Refills Start Date End Date Status Glucose Blood (ONETOUCH VERIO) STRPIndications:Typ e 2 diabetes mellitus with hemoglobin A1c goal of less than 8.0% ([facility]) Use up to 4 times [...] mitral valve regurgitation,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,Stage 3b chronic kidney [...] as of this encounter (statuses as of 04/23/2024) Active Problems Problem Noted Date Diagnosed Date [...] 07/28/2021 Last Assessment & Plan: Follows with [facility] hematology Routine labs monitored by hem/onc [...] knees 03/21/2018 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 Coronary artery disease [...] as of this encounter (statuses as of 04/23/2024) Immunizations Name Administration Dates Next Due COVID-19 [...] Sign Reading Time Taken Comments Blood Pressure 150/80 04/19/2024 11:37 AM EDT Pulse 94 04/19/2024 11:37 AM EDT Temperature 35.9 C (96.7 F) 04/19/2024 1 1:37 AM EDT Respiratory Rate 18 04/19/2024 11:3 7 AM EDT Oxygen Saturation 96% 04/19/2024 11: 37 AM EDT Inhaled Oxygen Concentration - - Weight 73.8 kg (162 lb 12.8 oz) 024 11:37 AM EDT Height - - Body Mass Index 27.09 04/09/2024 9:19 AM EDT documented in this encounter Progress Notes * Peggy De RN - 04/19/2024 11:40 AM EDT Images from the original note were not included. [facility] Monthly Visit Date: 04/19/2024 Time: 11:40 AM Name: Jesus Jose : 1945 Current Concerns: Pt seen for return RNCM for lab draws Had HH here this am and leg wraps were completed by them showed pics of legs and there is mild improvement Pt is on PO dtp and po abx No acute concerns at this time Will place on schedule for calls over w/e to check on patient CBC an BMP drawn from left AC Pt tolerated well Labs taken to [facility] lab Physical Exam: BP 150/80 | Pulse 94 | Temp 35.9 C (96.7 F) | Resp 18 | Wt 73.8 kg (162 lb 12.8 oz) | SpO2 96% | BMI 27.09 kg/m | BSA 1.84 m Pain 0 Physical Exam Constitutional: General: He is not in acute distress. Cardiovascular: Rate and Rhythm: Normal rate. Rhythm irregular. Pulses: Normal pulses. Heart sounds: Normal heart sounds. Pulmonary: Effort: Pulmonary effort is normal. Breath sounds: Normal breath sounds. Musculoskeletal: Right lower leg: Edema present. Left lower leg: Edema present. Skin: General: Skin is warm and dry. Neurological: Mental Status: He is alert and oriented to person, place, and time. Problems/Symptoms: Review of Systems Constitutional: Negative. Cardiovascular: Positive for leg swelling. Musculoskeletal: Positive for arthralgias and gait problem. Skin: Positive for wound (RLE - dressings intact, done by HH today). Psychiatric/Behavioral: Positive for confusion (intermittent, at baseline). Medication Reconciliation: (See medication list) Does patient take medications as ordered: Yes Patient Well Being: PHQ2/9: No questionnaires available. No change in living situation No falls [facility]-10 Completed this Visit: No. No falls since last visit Advanced Care [...] medication regimen. Timing., Dosing., and Purspose. Treatment/Plan: Continue meds as prescribed Complete entire course of abx Take probiotic while on abx [facility] for wound care/management Labs obtained and taken to lab Low Na diet with 1800ml fluid restriction Elevate LE as much as possible 24 and 48 hr f/u calls Home Interventions Provided: Labs/Specimen Collection Performed CBC, BMP Home Intervention: Other; eval Reinforced current Plan of Care, including self-management and medication regimen Patient's 'Red Flags': Increased edema/redness/weeping of LE's Wt gain of 3 lbs in 24 hrs or 5 lbs in one week Increased SOB Patient Needs to Remember: Call [facility] at with any new or worsening health concerns or problems, red flag symptoms. Referrals Needed: Other none Follow Up: Is there cellular connectivity/connectivity in the home? Yes Does the patient have internet in the home? Yes Patient encouraged to call the intake phone number for all urgent but not emergent issues. Is the patient new to [facility] within the last 30 days? No, Assess appropriateness for upcoming telehealth visits. Cancel telehealth visits & schedule home visit with care merchandise team manager(s)as indicated. Provider is in agreement with Plan of Care: Yes Scheduled to follow up with patient in 24 hrs. Peggy De RN 04/19/2024 11:40 AM documented in this encounter Plan of Treatment Upcoming Encounters Date Type Department Care Team (Late st Contact Info) Description 05/08/2024 2:30 PM EDT Tele[facility]icine [facility] [place], [facility] [address] [address] Berny Power PA-C [address] [place] [address] Meri Mae, Community Health Telemarketing Sales Representative [address] [place] [address] 05/09/2024 7:00 AM EDT Laboratory [facility] [address] [place] [address] Mvmg, G[facility] Draw [address] [facility] [place], [place] [address] 05/23/2024 7:00 AM EDT Laboratory Lab [facility] [address] [facility] [place], [place] [address] Mvmg, Gml [facility] Draw [address] [facility] [place], [place] [address] 05/31/2024 10:00 AM EDT Home Visit [facility] at [facility], [facility] 132 [facility] [place] [address] Peggy De RN 132 [facility] [place] [address] 06/06/2024 7:00 AM EDT Laboratory Lab [facility] Phlebotomy [facility] [address] [facility] [place], [place] [address] Mvmg, Gml [facility] Draw [address] [facility] [place] [address] 06/20/2024 7:00 AM EDT Laboratory Lab [facility] Phlebot[facility] [address] [facility] [place], [place] [address] Mvmg, Gml [facility] Draw [address] [facility] [place] [address] 07/04/2024 7:00 AM EDT Laboratory Lab [facility] Phlebotomy [facility] [address] [place] [address] Mvmg, Gml [facility] Draw [address] [facility] [place] [address] 07/18/2024 7:00 AM EDT Laboratory [facility] [address] [facility] [place] [address] Mvmg, Gml [facility] Draw [address] [facility] [place] [address] 08/01/2024 7:00 AM EDT Laboratory [facility] [address] [place] [address] Mvmg, Gml [facility] Draw [address] [place], [place] [address] 08/13/2024 8:00 AM EDT Office Visit Cardiology, [facility] [address] [place] [address] Dominick Benz, [address] [place] [address] 08/15/2024 7:00 AM EDT Laboratory Lab [facility] Phlebotomy [facility] [address] [place] [address] Mvmg, Gml [facility] Draw [address] [place], [place] [address] 08/29/2024 7:00 AM EST Laboratory Lab [facility]lebot[facility] [address] [place] [address] Mvmg, Gml [facility] Draw [address] [place] [address] 08/29/2024 8:00 AM EST Hospital Encounter ENDO OSSC, Endoscopy Room [facility] [address] [place] [phone] Arnie Shrestha MD [address] [place] [address] 08/29/2024 8:00 AM EST - 08/29/2024 8:30 AM EST Surgery ENDO OSSC, Endoscopy Room [facility] [address] [place] [phone] Arnie Shrestha MD [address] [place] [address] COLONOSCOPY FLEXIBLE PROXIMAL DIAGNOSTIC 09/02/2024 1:45 PM EST Office Visit Dermatology [facility] [address] [place] [address] Osvaldo Liu MD [address] [place] [address] 09/12/2024 7:00 AM EST Laboratory Lab [facility] Phlebotomy [facility] [address] [facility] [place] [address] Mvmg, Gml Mobile Home Draw [address] [facility] [place] [address] 09/17/2024 11:15 AM EST Office Visit Urology, [facility] 132 [facility] [place] [address] Kalpesh Funes MD [address] [place] [address] 09/26/2024 7:00 AM EST Laboratory Lab [facility] Phlebotomy [facility] [address] [facility] [place] [address] Mvmg, Gm Mobile Home Draw [address] [facility] [place] [address] 03/12/2025 3:30 PM EDT Home Visit Care at Home [address], [place] [id number] Betina Jacob PA-C [address], [place] [id number] Scheduled Procedures Name Priority Associated Diagnoses Date/Ti [...] Additional history exists CKD PHOS USE SMARTSET 81935 12/07/202411/23, 12/26/2022, 06/21/2021 Depression Screening 03/07/2025 03/07/2024 CKD HGB USE SMARTSET 05723 04/23/202504/23, 04/23/2024, 04/19/2024, Additional history exists Colonoscopy [...] encounter Medical Devices Implanted Type Area Metal Model Builder Device Identifier Shelf Expiration Date Model / Serial / Lot Lens Intraoc 22.5 - [id number] - [id number] Implanted:Qty: 1 on 05/22/2018 by Jasbir Maurer MD at OR [facility] Right: Eye [employer]OM[employer] 11/22/2022 [id number] / [id number] / [id number] Lens Intraoc 21.0 - [id number] - [id number] Implanted:Qty: 1 on 06/05/2018 by Jasbir Maurer MD at OR [facility] Left: Eye BAUSCH [employer] LOMB 12/20/2022 [id number] / [id number] / Duraclip 16mm Xlg Repostn - [id number] Implanted:Qty: 1 on 04/12/2024 by Edilberto Lujan MD at OR [facility] CONMED NACHO [id number] 12/08/2024 [id number] / / [id number] Duraclip 16mm Xlg Repostn - [id number] Implanted:Qty: 1 on 04/12/2024 by Edilberto Lujan MD at OR [facility] [employer]MED [employer] [id number] 12/08/2024 [id number] / / [id number] Duraclip 16mm Xlg Repostn - [id number] Implanted:Qty: 1 on 04/12/2024 by Edilberto Lujan MD at OR [facility] [employer]MED [employer] [id number] 12/08/2024 [id number] / / [id number] documented as of this encounter Advance Directives [...] Agents on File Name Relationship Healthcare Agent [facility] Communication Ashley Fantasma Jose Spouse Health Care Power of Attor mayela Care Teams Screwdown Operator Relationship Specialty Start Date End Date Michael Hinton MD [address] [place] [address] PCP - General Family Medicine 08/07/17 documented as of this encounter
--- OUTSIDE RECORDS SUMMARY | 2024-05-04 16:48 | External Medical Summary ---
Author Name Unknown Address Unknown Organization K0G:[facility] - [address] [place] [address] Laboratory Report Ordering Provider Test Date Status ANGEL ANDERSON 05/01/2024 10:13:29 Final Observation Date Value Abnormality Reference (Units ) Status SYNC LEUKOCYTES IN BLOOD BY AUTOMATED COUNT 05/01/2024 10:13:29 7.28 4.00-10.80 (K/uL) Final Segs 05/01/2024 10:13:29 82.7 Above high normal 40.0-75.0 (%) Final Lymphs % 05/01/2024 10:13:29 10.3 Below low normal 18.0-42.0 (%) Final Monos 05/01/2024 10:13:29 6.5 1.0-11.0 (%) Final Eosinophils 05/01/2024 10:13:29 0.4 0.0-6.0 (%) Final Basos 05/01/2024 10:13:29 0.1 0.0-2.0 (%) Final Absolute Segs 05/01/2024 10:13:29 6.02 1.80-7.70 (K/uL) Final Lymphs, absolute 05/01/2024 10:13:29 0.75 Below low normal 1.00-4.80 (K/ul) Final Monos, Abs 05/01/2024 10:13:29 0.47 0.00-1.10 (K/uL) Final Eos, Abs 05/01/2024 10:13:29 0.03 0.00-0.70 (K/uL) Final Basos, Abs 05/01/2024 10:13:29 0.01 0.00-0.20 (K/uL) Final Performing Location [facility] 0 - [address] [place] [address]
--- OUTSIDE RECORDS SUMMARY | 2024-05-04 16:48 | External Medical Summary | Summary of Care ---
Author Name Unknown Organization [facility] Address [address] [place] [address] Phone [phone] Care Team Providers Care Army Manager Name Role Phone Michael Hinton MD Primary Care Provider [phone] Reason for Visit * Reason Onset Date Comments Diarrhea 04/30/2024 Encounter Details Date Type Department Care Team (Late st Contact Info) Description 04/30/2024 Telephone Gastroenterology, [facility] [address] [place] [address] Arnie Shrestha MD [address] [place] [address] Diarrhea Allergies Active Allergy Reactions Criticality Noted Date Comments Fabiano Inhibitors Cough 06/09/2017 Carbidopa W-Levodopa 03/17/2021 Constipation Nsaids Rash 05/17/2018 Contraindicated per landscape maintenance internship documented as of this encounter (statuses as of 04/30/2024) Medications Medication Sig Dispensed Refills Start Date [...] mitral valve regurgitation,Coron daniel artery disease involving redding coronary artery of redding heart without angina pectoris,Stage 3b chronic kidney [...] as of this encounter (statuses as of 04/30/2024) Active Problems Problem Noted Date Diagnosed Date [...] knees 03/21/2018 Coronary artery disease invo lving redding coronary artery of redding heart without angina pectoris 03/21/2018 Last Assessment [...] as of this encounter (statuses as of 04/30/2024) Resolved Problems Problem Noted Date Diagnosed Date [...] document from 11/13/[address] bains [facility]. [...] as of this encounter (statuses as of 04/30/2024) Immunizations Name Administration Dates Next Due COVID-19 mRNA, LNP-s, No Pre serve, 2-Dose Series (Neoantigenics) 11/03/2021,12/19/2020,11/28/2020 Covid-19 Ad26, Single Dose (Soy/J&J) 12/19/2020,11/28/2020 [...] encounter Miscellaneous Notes * Telephone Encounter - Cisco Buitrago CRNP - 04/30/2024 12:34 PM EDT I spoke w the patient's . BMs are dark brown, liquid/loose, about 4x/day, incontinent. Stomach is "upset," poor appetite, tired, sleeping a lot. On the towel that he sits on, he had a small amt of dark red blood. Taking imodium about once a day. Get a CBC as soon as possible. Stools for C-diff and GI pathogens. Increase imodium. To ED if significant amt of blood in BMs, if severely SOB or if any CP. Further recommendations based on lab results. agrees with this plan. * Telephone Encounter - Michael Stewart LPN - 04/30/2024 9:05 AM EDT The pt's stated since his GI surgery on 04/12/24 he has had an upset stomach and diarrhea. She stated they tried Imodium but it was ineffective. The pt has had numerous episodes of incontinence r/t this. Please advise. documented in this encounter Plan of Treatment Upcoming Encounters Date Type Department Care Team (Late st Contact Info) Description 05/08/2024 2:30 PM EDT Telemedicine [facility] at [facility] [address] [place] [address] Berny Power PA-C [address] [facility] [address] Meri Mae, Community Health Continuity Tester [address] [place] [address] 05/09/2024 7:00 AM EDT Laboratory Lab [facility] Phlebot[facility] [address] [place] [address] Mvmg, Gml Mobile Home Draw [address] [place] [address] 05/23/2024 7:00 AM EDT Laboratory Lab [facility] Phlebot[facility] [address] [place] [address] Mvmg, Gml Mobile Home Draw [address] [facility] [place] [address] 05/31/2024 10:00 AM EDT Home Visit [facility] at [facility] 132 [facility] [place] [address] Peggy De RN 132 [facility] [place] [address] 06/06/2024 7:00 AM EDT Laboratory Lab [facility] Phlebot[facility] [address] [place] [address] Mvmg, Gml Mobile Home Draw [address] [employer] [place] [address] 06/20/2024 7:00 AM EDT Laboratory Lab [facility] Phlebotomy [facility] [address] [place] [address] Mvmg, Gml Mobile Home Draw [address] [employer] [place] [address] 07/04/2024 7:00 AM EDT Laboratory Lab [facility] Phlebot[facility] [address] [place] [address] Mvmg, Gml Mobile Home Draw [address] [facility] [place] [address] 07/18/2024 7:00 AM EDT Laboratory Lab [facility] Phlebotomy [facility] [address] [place] [address] Mvmg, Gml Mobile Home Draw [address] [employer] [place] [place] [address] 08/01/2024 7:00 AM EDT Laboratory Lab [facility] Phlebot[facility] [address] [place] [address] Mvmg, Gml Mobile Home Draw [address] [employer] [place] [place] [address] 08/13/2024 8:00 AM EDT Office Visit Cardiology, [facility] [address] [place] [address] Dominick Benz, [address] [place] [address] 08/15/2024 7:00 AM EDT Laboratory Lab [facility]lebot[facility] [address] [facility] [place] [address] Mvmg, Gml Mobile Home Draw [address] [place] [address] 08/29/2024 7:00 AM EST Laboratory Lab Mobile Phlebotomy [facility] [address] [employer] [facility] [place] [address] Mvmg, Gml Mobile Home Draw [address] [facility] [place] [address] 08/29/2024 8:00 AM EST Hospital Encounter ENDO OSSC, Endoscopy Room [facility] [address] [place] [phone] Arnie Shrestha MD [address] [place] [address] 08/29/2024 8:00 AM EST - 08/29/2024 8:30 AM EST Surgery ENDO OSSC, Endoscopy Room [facility] [address] [place] [phone] Arnie Shrestha MD [address] [place] [address] COLONOSCOPY FLEXIBLE PROXIMAL DIAGNOSTIC 09/02/2024 1:45 PM EST Office Visit Dermat[facility] [address] [facility] [place] [address] Osvaldo Liu MD 200 [facility] [address] 09/12/2024 7:00 AM EST Laboratory Lab Mobile Phlebotomy [facility] [address] [place] [address] Mvmg, Gml Mobile Home Draw [address] [place] [address] 09/17/2024 11:15 AM EST Office Visit Urology, [facility] [address] [place] [address] Kalpesh Funes MD [address] [place] [address] 09/26/2024 7:00 AM EST Laboratory Lab Mobile Phlebotomy [facility] [address] [place] [address] Mvmg, Gml Mobile Home Draw [address] [place] [address] 03/12/2025 3:30 PM EDT Home Visit [facility] at Home [address], [place] [phone] Betina Jacob PA-C [address] [place], [place] [phone] Scheduled Orders Name Type Priority Associated Diagnoses Orde r Schedule CBC WITH WBC DIFFERENTIAL Lab Routine Fatigue, unspecified type Acute blood loss anemia AVM (arteriovenous malformation) of small bowel, acquired Expected: 05/01/2024, Expires: 04/30/2025 GASTROINTESTINAL PATHOGEN PANEL, STOOL Lab Routine Diarrhea, unspecified type Expected: 04/30/2024, Expires: 04/30/2025 CLOSTRIDIUM DIFFICILE, PCR Lab Routine Diarrhea, unspecified type Expected: 05/01/2024 (Approximate), Expires: 05/31/2025 Scheduled Procedures Name Priority Associated Diagnoses Date/Ti [...] Additional history exists CKD PHOS USE SMARTSET 17299 12/07/202411/23, 12/26/2022, 06/21/2021 Depression Screening 03/07/2025 03/07/2024 CKD HGB USE SMARTSET 36042 04/23/202504/23, 04/23/2024, 04/19/2024, Additional history exists DTaP,Tdap,and Td Vaccines (4 [...] this encounter Medical Devices Implanted Type Area Vulcan Crewmember Device Identifier Shelf Expiration Date Model / Serial / Lot Lens Intraoc 22.5 - [id number] - [id number] Implanted:Qty: 1 on 05/22/2018 by Jasbir Maurer MD at OR [facility] Right: Eye [employer] 11/22/2022 [id number] / [id number] / [id number] Lens Intraoc 21.0 - [id number] - [id number] Implanted:Qty: 1 on 06/05/2018 by Jasbir Maurer MD at OR [facility] Left: Eye [employer]CH [employer] LOMB 12/20/2022 [id number] / [id number] / Duraclip 16mm Xlg Repostn - [id number] Implanted:Qty: 1 on 04/12/2024 by Edilberto Lujan MD at OR [facility] 2houses [id number] 12/08/2024 [id number] / / [id number] Duraclip 16mm Xlg Repostn - [id number] Implanted:Qty: 1 on 04/12/2024 by Edilberto Lujan MD at OR [facility] CONMED NACHO [id number] 12/08/2024 [id number] / / [id number] Duraclip 16mm Xlg Repostn - [id number] Implanted:Qty: 1 on 04/12/2024 by Edilberto Lujan MD at OR [facility] import.[employer] [id number] 12/08/2024 [id number] / / [id number] documented as of this encounter Visit Diagnoses Diagnosis Fatigue, unspecified type- Primary Acute blood loss anemia Acute posthemorrhagic anemia [...] Agents on File Name Relationship Healthcare Agent [facility] Communication Ashley Jose Spouse Health Care Power of Attor mayela Care Teams Army Manager Relationship Specialty Start Date End Date Michael Hinton MD [address] [place] [address] PCP - General Family Medicine 08/07/17 documented as of this encounter
--- OUTSIDE RECORDS SUMMARY | 2024-05-04 16:48 | External Medical Summary ---
Author Name Unknown Address Unknown Organization K01:[facility] - [address] [place] [address] Laboratory Report Ordering Provider Test Date Status GUERRERO CHAUHAN 04/23/2024 09:51:00 Final Observation Date Value Abnormality Reference (Units ) Status Ferritin 04/23/2024 09:51:00 229 30-400 (ng /mL) Final Performing Location [facility] - [address] [place] [address]
--- OUTSIDE RECORDS SUMMARY | 2024-05-04 16:48 | External Medical Summary ---
Author Name Unknown Address Unknown Organization K01:[facility] - [address] [place] [id number] Laboratory Report Ordering Provider Test Date Status ANGEL ANDRESON 05/02/2024 13:31:23 Preliminary Observation Date Value Abnormality Reference (Units) Status Bacteria identified in Specimen by Culture 05/02/2024 13:31:23 No Aeromonas species or Plesiomonas species isolated. Preliminary Test: Gastrointestinal Patho gen Panel Culture
Specimen Source: Stool
Specimen Type: Stool
Specimen Date: 05/02/2024 1331
Result Date: 05/04/2024 1142
Result Status: Preliminary result
Resulting Lab: [facility]
[address]
[place] [facility]

CULTURE

No Aeromonas species or Plesiomonas species isolated.

null Performing Location [facility] - [address] [place] [id number]
--- OUTSIDE RECORDS SUMMARY | 2024-05-04 16:48 | External Medical Summary ---
Author Name Unknown Address Unknown Organization K0G[facility] [address] [place] [address] Laboratory Report Ordering Provider Test Date Status GUERRERO CHAUHAN 04/23/2024 09:51:00 Final Observation Date Value Abnormality Reference (Units ) Status SYNC LEUKOCYTES IN BLOOD BY AUTOMATED COUNT 04/23/2024 09:51:00 9.26 4.00-10.80 (K/uL) Final Segs 04/23/2024 09:51:00 86.2 Above high normal 40.0-75.0 (%) Final Lymphs % 04/23/2024 09:51:00 7.8 Below low normal 18.0-42.0 (%) Final Monos 04/23/2024 09:51:00 5.0 1.0-11.0 (%) Final Eosinophils 04/23/2024 09:51:00 0.8 0.0-6.0 (%) Final Basos 04/23/2024 09:51:00 0.2 0.0-2.0 (%) Final Absolute Segs 04/23/2024 09:51:00 7.99 Above high normal 1.80-7.70 (K/uL) Final Lymphs, absolute 04/23/2024 09:51:00 0.72 Below low normal 1.00-4.80 (K/ul) Final Monos, Abs 04/23/2024 09:51:00 0.46 0.00-1.10 (K/uL) Final Eos, Abs 04/23/2024 09:51:00 0.07 0.00-0.70 (K/uL) Final Basos, Abs 04/23/2024 09:51:00 0.02 0.00-0.20 (K/uL) Final Performing Location LABORATORY [facility] [address] [place] [address]
--- OUTSIDE RECORDS SUMMARY | 2024-05-04 16:48 | External Medical Summary ---
Author Name Unknown Address Unknown Organization K[facility] [address] [facility] [address] [place] [address] Laboratory Report Ordering Provider Test Date Status ANGEL ANDERSON 05/01/2024 10:13:29 Final Observation Date Value Abnormality Reference (Units ) Status WBC, Total 05/01/2024 10:13:29 7.28 4.00-10.8 0 (K/uL) Final RBC 05/01/2024 10:13:29 3.21 4.50-5.25 (M/uL) Final Hemoglobin 05/01/2024 10:13:29 10.3 Below low normal 14 .0-16.8 (g/dL) Final HCT 05/01/2024 10:13:29 31.8 Below low normal 40. 0-48.4 (%) Final MCV 05/01/2024 10:13:29 99.1 82.0-99.5 (fL) Final MCH 05/01/2024 10:13:29 32.1 27.0-34.0 (pg) Final MCHC 05/01/2024 10:13:29 32.4 32.0-36.0 (g/dL) Final RDW 05/01/2024 10:13:29 15.3 11.5-15.5 (%) Final Platelets 05/01/2024 10:13:29 176 140-400 (K /uL) Final MPV 05/01/2024 10:13:29 8.8 6.6-11.1 ( fL) Final Performing Location [facility] [place] [address]
--- OUTSIDE RECORDS SUMMARY | 2024-05-04 16:48 | External Medical Summary | Summary of Care ---
Author Name Unknown Organization [facility] Address [address] [place] [address] Phone [phone] Care Team Providers Care Neurosurgeon Name Role Phone Michael Hinton MD Primary Care Provider [phone] Reason for Visit * Reason Onset Date Comments Health Maintenance 05/02/2024 Encounter Details Date Type Department Care Team (Late st Contact Info) Description 05/02/2024 Telephone Family Practice [facility] [email or web address] [facility] [place] [address] Michael Hinton MD [address] [email or web address] [facility] [place] [address] Health Maintenance Allergies Active Allergy Reactions Criticality Noted Date Comments Fabiano Inhibitors Cough 06/09/2017 Carbidopa W-Levodopa 03/17/2021 Constipation Nsaids Rash 05/17/2018 Contraindicated per assistant vice president documented as of this encounter (statuses as of 05/02/2024) Medications Medication Sig Dispensed Refills Start Date End Date Status Glucose Blood (ONETOUCH VERIO) STRPIndications:Typ e 2 diabetes mellitus with hemoglobin A1c goal of less than 8.0% ([facility]) Use up to 4 times a [...] mitral valve regurgitation,Coron daniel artery disease involving [place] coronary artery of [place] heart without angina pectoris,Stage 3b chronic kidney [...] knees 03/21/2018 Coronary artery disease invo lving [place] coronary artery of [place] heart without angina pectoris 03/21/2018 Last Assessment [...] document from 11/13/[address] [place] [facility] Coronary artery disease due to [...] Telephone Encounter - Mayuri Simpson LPN - 05/02/2024 10:39 AM EDT Care Gaps Comprehensive Care Outreach Last Office/Telemedicine Visit: 07/06/2023 (in office), Visit date not found (telemedicine) [...] - [facility] 6.4 (H) 03/08/2019 07:14 AM BP Readings from Last 1 Encounters: 04/19/24 150/80 Reviewed Health Maintenance below: Health Maintenance Topic Date Due Diabetic Foot Exam 03/27/2021 COVID-19 Vaccine ( season) 2023 HbA1c 10/12/2023 Diabetic Eye Exam 11/01/2023 Albumin/Creatinine Ratio 12/27/2023 Influenza Vaccine (FLU shot) (1) 06/23/2024 GFR 10/19/2024 [facility] I just spoke to his and they are at a Care Gap Outreach Action Taken: Outreach not indicated documented in this encounter Plan of Treatment Upcoming Encounters Date Type Department Care Team (Late st Contact Info) Description 05/08/2024 2:30 PM EDT Telemedicine [facility] [place], [facility] [place] [address] Berny Power PA-C [address] [place] [address] Meri Mae, Community Health [address] Inspector [address] [place] [address] 05/09/2024 7:00 AM EDT Laboratory Lab [facility] [address] [place] [address] Mvmg, [facility] Draw [address] [facility] [place] [address] 05/23/2024 7:00 AM EDT Laboratory Lab [facility] Phlebotomy [facility] [address] [facility] [place], [place] [address] Mvmg, Gml [facility] Draw [address] [facility] [place], [place] [address] 05/31/2024 10:00 AM EDT Home Visit [facility], [facility] 132 [facility] [place] [address] Peggy De RN [address] [place] [address] 06/06/2024 7:00 AM EDT Laboratory Lab Mobile Phlebotomy [facility] [address] [facility] [place], [place] [address] Mvmg, Gml [facility] Draw [address] [facility] [place] [address] 06/20/2024 7:00 AM EDT Laboratory Lab Mobile Phlebotomy [facility] [address] [facility] [place], [place] [address] Mvmg, Gml [facility] Home Draw [address] [facility] [place] [address] 07/04/2024 7:00 AM EDT Laboratory Lab Mobile Phlebotomy [facility] [address] [facility] [place] [address] Mvmg, Gml Mobile Home Draw [address] [facility] [place] [address] 07/18/2024 7:00 AM EDT Laboratory Lab Mobile Phlebotomy [facility] [address] [facility] [place] [address] Mvmg, Gml Mobile Home Draw [address] [facility] [place] [address] 08/01/2024 7:00 AM EDT Laboratory Lab Mobile Phlebotomy [facility] [address] [facility] [place] [address] Mvmg, Gml Mobile Home Draw [address] [place] [address] 08/13/2024 8:00 AM EDT Office Visit Cardiology, [facility] [address] [place] [address] Dominick Benz, [address] [place] [address] 08/15/2024 7:00 AM EDT Laboratory Lab Mobile Phlebotomy [facility] [address] [place] [address] Mvmg, Gml Mobile Home Draw [address] [facility] [employer] [place] [address] 08/29/2024 7:00 AM EST Laboratory Lab Mobile Phlebotomy [facility] [address] [place] [address] Mvmg, Gml Mobile Home Draw [address] [facility] [employer] [place] [address] 08/29/2024 8:00 AM EST Hospital Encounter ENDO [facility], Endoscopy Room [facility] [address] [place] [phone] Arnie Shrestha MD [address] [place] [address] 08/29/2024 8:00 AM EST - 08/29/2024 8:30 AM EST Surgery ENDO [facility], Endoscopy Room [facility] [address] [place] [phone] Arnie Shrestha MD [address] [place] [address] COLONOSCOPY FLEXIBLE PROXIMAL DIAGNOSTIC 09/02/2024 1:45 PM EST Office Visit Dermatology [facility] [place] [address] [place] [address] Osvaldo Liu MD [address] [place] [address] 09/12/2024 7:00 AM EST Laboratory Lab Mobile Phlebotomy [facility] [facility] [place] [address] Mvmg, Gml Mobile Home Draw [address] [facility] [place] [address] 09/17/2024 11:15 AM EST Office Visit Urology, [facility] 132 [facility] [place] [address] Kalpesh Funes MD [address] [place] [address] 09/26/2024 7:00 AM EST Laboratory Lab Mobile Phlebotomy [facility] [address] [facility] [place] [address] Mvmg, Gml Mobile Home Draw [address] [facility] [place] [address] 03/12/2025 3:30 PM EDT Home Visit Care at Home [address] [place] [address] Betina Jacob PA-C [address] [place], [place] [id number] Scheduled Procedures Name Priority Associated Diagnoses Date/Ti [...] , 11/01/2022, Additional history exists Albumin/Creatinine Ratio 12/27/202312/26/2 023, 03/08/2019, 04/09/2014 Influenza Vaccine (FLU shot) (#1) 2024 08/02/2023, 07/13/2022, 07/23/2021, Additional history exists GFR 10/19/2024 04/19/2024, 03/24, 03/28/2024, Additional history exists CKD PHOS USE SMARTSET 17802 12/07/202411/23, 12/26/2022, 06/21/2021 Depression Screening 03/07/2025 03/07/2024 CKD HGB USE SMARTSET 61705 05/01/202505/01, 05/01/2024, 04/23/2024, Additional history exists DTaP,Tdap,and [...] this encounter Medical Devices Implanted Type Area Salvage Machine Operator Device Identifier Shelf Expiration Date Model / Serial / Lot Lens Intraoc 22.5 - [id number] - [id number] Implanted:Qty: 1 on 05/22/2018 by Jasbir Maurer MD at OR [facility] Right: Eye [employer] 11/22/2022 [id number] / [id number] / [id number] Lens Intraoc 21.0 - [id number] - [id number] Implanted:Qty: 1 on 06/05/2018 by Jasbir Maurer MD at OR [facility] Left: Eye [employer]OM[employer] 12/20/2022 [id number] / [id number] / Duraclip 16mm Xlg Repostn - [id number] Implanted:Qty: 1 on 04/12/2024 by Edilberto Lujan MD at OR [facility] [employer] [id number] 12/08/2024 [id number] / / [id number] Duraclip 16mm Xlg Repostn - [id number] Implanted:Qty: 1 on 04/12/2024 by Edilberto Lujan MD at OR [facility] [employer]ACH[employer] [id number] 12/08/2024 [id number] / / [id number] Duraclip 16mm Xlg Repostn - [id number] Implanted:Qty: 1 on 04/12/2024 by Edilberto Lujan MD at OR [facility] [employer] [id number] 12/08/2024 [id number] / / [id number] documented as of this encounter Advance Directives [...] on File Name Relationship Healthcare Agent [facility] Communication Ashley Meek Jose Spouse Health Care Power of Attor [place] [phone] ([place]) Care Teams Neurosurgeon Relationship Specialty Start Date End Date Michael Hinton MD [address] [place] [address] PCP - General Family Medicine 08/07/17 documented as of this encounter
--- OUTSIDE RECORDS SUMMARY | 2024-05-04 16:49 | External Medical Summary | Summary of Care ---
Author Name Unknown Organization [facility] Address [address] [place] [address] Phone [phone] Care Team Providers Care Wool Shearer Name Role Phone Michael Hinton MD Primary Care Provider [phone] Reason for Visit * Reason Onset Date Comments Follow Up 04/21/2024 Encounter Details Date Type Department Care Team (Late st Contact Info) Description 04/21/2024 9:45 AM EDT Scheduled Telephone [facility] [place], [facility] 132 [facility] [place] [address] [facility], Nurse [facility] [address] [place] [address] Allergies Active Allergy Reactions Criticality Noted Date Comments Fabiano Inhibitors Cough 06/09/2017 Carbidopa W-Levodopa 03/17/2021 Constipation Nsaids Rash 05/17/2018 Contraindicated per bar host documented as of this encounter (statuses as of 04/21/2024) Medications Medication Sig Dispensed Refills Start Date End Date Status Glucose Blood (ONETOUCH VERIO) STRPIndications:Typ e 2 diabetes mellitus with hemoglobin A1c goal of less than 8.0% ([facility]) Use up to 4 times a day [...] mitral valve regurgitation,Coron daniel artery disease involving [place] coronary artery of rosebud heart without angina pectoris,Stage 3b chronic kidney [...] as of this encounter (statuses as of 04/21/2024) Active Problems Problem Noted Date Diagnosed Date [...] 07/28/2021 Last Assessment & Plan: Follows with [facility] hematology Routine labs monitored by hem/onc Update [...] knees 03/21/2018 Coronary artery disease invo lving rosebud coronary artery of rosebud heart without angina pectoris 03/21/2018 Last Assessment [...] as of this encounter (statuses as of 04/21/2024) Resolved Problems Problem Noted Date Diagnosed Date [...] scanned document from 11/13/[address] bains, [facility] [place]. 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y [...] as of this encounter (statuses as of 04/21/2024) Immunizations Name Administration Dates Next Due COVID-19 [...] encounter Miscellaneous Notes * Telephone Encounter - Heavenly Tavarez RN - 04/21/2024 3:43 PM EDT Phone call for follow up f/u on acute visit - IV Lasix/Rocephin this week - now on PO abx - how is LE edema/redness/weeping? Spoke with . States patient is pretty much back to his normal. Did not weigh on [facility] scale this morning. Encouraged to weigh daily. Legs are wrapped. Does not seen any seeping on tubigrips. visit for tomorrow for dressing change to BLE. Denies any concerns. Encouraged to call [facility] with worsening symptoms. Voices understanding. documented in this encounter Plan of Treatment Upcoming Encounters Date Type Department Care Team (Late st Contact Info) Description 04/23/2024 7:15 AM EDT Laboratory Lab Mobile Phlebotomy [facility] [email or web address] [place] [address] Mvmg, Gml Mobile Home Draw [address] [place] [address] 05/08/2024 2:30 PM EDT [facility]medicine [facility] [place], [facility] [place] [address] Berny Power PA-C [address] [facility] [address] Meri Mae, Community Health Sugar Boiler [facility] [place] [address] 05/09/2024 7:00 AM EDT Laboratory Lab Mobile Phlebotomy [facility] [email or web address] [place] [address] Mvmg, Gml Mobile Home Draw [address] [place] [address] 05/23/2024 7:00 AM EDT Laboratory Lab Mobile Phlebotomy [facility] [address] [employer] [facility] [place], [place] [address] Mvmg, Gml Mobile Home Draw [address] [facility] [place], [place] [address] 05/31/2024 10:00 AM EDT Home Visit [facility], [facility] [address] [place] [address] Peggy De RN [address] [place] [address] 06/06/2024 7:00 AM EDT Laboratory Lab Mobile Phlebotomy [facility] [address] [employer] [facility] [place] [address] Mvmg, Gml Mobile Home Draw [address] [facility] [place], [place] [address] 06/20/2024 7:00 AM EDT Laboratory Lab Mobile Phlebotomy [facility] [address] [facility] [place] [address] Mvmg, Gml Mobile Home Draw [address] [facility] [place] [address] 07/04/2024 7:00 AM EDT Laboratory Lab Mobile Phlebotomy [facility] [address] [facility] [place] [address] Mvmg, Gml Mobile Home Draw [address] [place] [address] 07/18/2024 7:00 AM EDT Laboratory Lab Mobile Phlebotomy [facility] [address] [facility] [place] [address] Mvmg, Gml Mobile Home Draw [address] [facility] [place] [address] 08/01/2024 7:00 AM EDT Laboratory Lab Mobile Phlebotomy [facility] [address] [facility] [place] [address] Mvmg, Gml Mobile Home Draw [address] [place] [address] 08/13/2024 8:00 AM EDT Office Visit Cardiology, [facility] [address] [place] [address] Dominick Benz DO [address] [place] [address] 08/15/2024 7:00 AM EDT Laboratory Lab Mobile Phlebotomy [facility] [address] [place] [address] [address] Mvmg, Gml Mobile Home Draw [address] [place] [address] 08/29/2024 7:00 AM EST Laboratory Lab Mobile Phlebotomy [facility] [address] [place] [address] [address] Mvmg, Gml Mobile Home Draw [address] [facility] [place] [address] 08/29/2024 8:00 AM EST Hospital Encounter ENDO [facility], Endoscopy Room [facility] [address] [place] [phone] Arnie Shrestha MD [address] [place] [address] 08/29/2024 8:00 AM EST - 08/29/2024 8:30 AM EST Surgery ENDO [facility], Endoscopy Room [facility] [address] [place] [phone] Arnie Shrestha MD [address] [place] [address] COLONOSCOPY FLEXIBLE PROXIMAL DIAGNOSTIC 09/02/2024 1:45 PM EST [facility] [place] [address] [place] [address] Osvaldo Liu MD 200 [facility] [place] [address] 09/12/2024 7:00 AM EST Laboratory Lab Mobile Phlebotomy [facility] [address] [facility] [place] [address] Mvmg, Gml Mobile Home Draw [address] [facility] [place] [address] 09/17/2024 11:15 AM EST Office Visit Urology, [facility] [address] [place] [address] Kalpesh Funes MD [address] [place] [address] 09/26/2024 7:00 AM EST Laboratory Lab Mobile Phlebotomy [facility] [address] [facility] [place] [address] Mvmg, Gml Mobile Home Draw [address] [facility] [place] [address] 03/12/2025 3:30 PM EDT Home Visit Care at Home [address] [place] [address] Betina Jacob PA-C [address] [place] [address] Scheduled Procedures Name Priority Associated Diagnoses Date/Ti [...] exists Albumin/Creatinine Ratio 12/27/2023 023, 03/08/2019, 04/09/2014 GFR 10/19/2024 04/19/2024, 03/24, 03/28/2024, Additional history exists CKD PHOS USE SMARTSET 08657 12/07/202411/23, 12/26/2022, 06/21/2021 Depression Screening 03/07/2025 03/07/2024 CKD HGB USE SMARTSET 67068 04/19/202504/19, 04/19/2024, 04/15/2024, Additional history exists Colonoscopy [...] this encounter Medical Devices Implanted Type Area Scaffolder Device Identifier Shelf Expiration Date Model / Serial / Lot Lens Intraoc 22.5 - [id number] - [id number] Implanted:Qty: 1 on 05/22/2018 by Jasbir Maurer MD at OR [facility] Right: Eye [employer] 11/22/2022 [id number] / [id number] / [id number] Lens Intraoc 21.0 - [id number] - [id number] Implanted:Qty: 1 on 06/05/2018 by Jasbir Maurer MD at OR [facility] Left: Eye [employer]CH [employer]OM[employer] 12/20/2022 [id number] / [id number] / Duraclip 16mm Xlg Repostn - [id number] Implanted:Qty: 1 on 04/12/2024 by Edilberto Lujan MD at OR [facility] [employer] [id number] 12/08/2024 [id number] / / [id number] Duraclip 16mm Xlg Repostn - [id number] Implanted:Qty: 1 on 04/12/2024 by Edilberto Lujan MD at OR [facility] [employer] [id number] 12/08/2024 [id number] / / [id number] Duraclip 16mm Xlg Repostn - [id number] Implanted:Qty: 1 on 04/12/2024 by Edilberto Lujan MD at OR [facility] [employer] [id number] 12/08/2024 [id number] / / [id number] documented as of this encounter Advance Directives [...] Agents on File Name Relationship Healthcare Agent [facility] p Communication Ashley Jose Spouse Health Care Power of Attor mayela Care Teams Wool Shearer Relationship Specialty Start Date End Date Michael Hinton MD [address] [place] [address] PCP - General Family Medicine 08/07/17 documented as of this encounter
--- OUTSIDE RECORDS SUMMARY | 2024-05-04 16:49 | External Medical Summary | Summary of Care ---
Author Name Unknown Organization [facility] Address [address] [place] [address] Phone [phone] Care Team Providers Care Strategy Execution Consultant Name Role Phone Michael Hinton MD Primary Care Provider [phone] Reason for Visit * Reason Comments [facility]: Acute Encounter Details Date Type Department Care Team (Late st Contact Info) Description 04/16/2024 2:00 PM EDT Home Visit [facility] [address] [place] [address] Peggy De, RN [address] [place] [address] Allergies Active Allergy Reactions Criticality Noted Date Comments Fabiano Inhibitors Cough 06/09/2017 Carbidopa W-Levodopa 03/17/2021 Constipation Nsaids Rash 05/17/2018 Contraindicated per dam worker documented as of this encounter (statuses as of 04/18/2024) Medications Medication Sig Dispensed Refills Start Date End Date Status Glucose Blood (ONETOUCH VERIO) STRPIndications:Typ e 2 diabetes mellitus with hemoglobin A1c goal of less than 8.0% ([facility]) Use up to 4 times a day [...] mitral valve regurgitation,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 180 Tablet 3 03/13/2024 Active Amantadine HCl 100 MG Oral Capsule (Symmetrel) Take 1 capsule (100 mg total) by mouth daily . 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 Coronary [...] as of this encounter (statuses as of 04/18/2024) Immunizations Name Administration Dates Next Due COVID-19 mRNA, LNP-s, No Pre serve, 2-Dose Series ([employer]) 11/03/2021,12/19/2020,11/28/2020 Covid-19 Ad26, Single Dose (Soy/J&J) 12/19/2020,11/28/2020 [...] Sign Reading Time Taken Comments Blood Pressure 130/62 04/16/2024 2:17 PM EDT Pulse 76 04/16/2024 2:17 PM EDT Temperature 37.8 C (100 F) 04/16/2024 2:17 PM EDT Respiratory Rate 18 04/16/2024 2:17 PM EDT Oxygen Saturation 96% 04/16/2024 2:17 PM EDT Inhaled Oxygen Concentration - - Weight - - Height - - Body Mass Index - - documented in this encounter Progress Notes * Peggy De RN - 04/16/2024 2:02 PM EDT Images from the original note were not included. [facility] Visit Date: 04/16/2024 Time: 2:02 PM Name: Jesus Jose : 1945 Current Concerns: Pt seen for acute visit f/u Receive 100mg IV lasix and Rocephin 1 gram IVP yesterday for increased weight, SOB, LE edema/redness/weeping. Peripheral IV left intact of right AC Today pt reports he is having worsening pain of right knee, 10/10 Had tylenol last night with little relief Was unable to get on scale this am d/t poor balance No change in LE edema No increase in SOB Temp 100 degrees F Lungs clear bilaterally No abdominal bloating BP 130/62 | Pulse 76 | Temp 37.8 C (100 F) | Resp 18 | SpO2 96% TT to Dr. Briggs - see Treatment Plan below for new orders Problems/Symptoms: Review of Systems Constitutional: Positive for fatigue. Respiratory: Positive for shortness of breath. Cardiovascular: Positive for leg swelling. Musculoskeletal: Positive for arthralgias and gait problem. Skin: Positive for wound (RLE). Physical Exam: BP 130/62 | Pulse 76 | Temp 37.8 C (100 F) | Resp 18 | SpO2 96% Pain 10 Physical Exam Cardiovascular: Rate and Rhythm: Normal rate and regular rhythm. Pulses: Normal pulses. Heart sounds: Normal heart sounds. Pulmonary: Effort: Pulmonary effort is normal. Breath sounds: Normal breath sounds. Musculoskeletal: Right lower leg: Edema (+3) present. Left lower leg: Edema (+2) present. Skin: General: Skin is warm and dry. Findings: Erythema (and weeping of BLE) present. Neurological: Mental Status: He is alert and oriented to person, place, and time. [facility] Completed this Visit: Yes. [facility]-10: Reason Completed: Status post acute event/change in baseline [facility]-10 ([facility]) Fall Risk Assessment Tool Age 65+: Yes (04/18/241299) Diagnosis (3 or more co-existing): Yes (04/18/241299) Prior history of falls within 3 months: Yes (04/18/241299) Incontinence: Yes (04/18/241299) Visual impairment: No (04/18/241299) Impaired functional mobility: Yes (04/18/241299) Environmental hazards: No (04/18/241299) Poly Pharmacy (4 or more prescriptions - any type): Yes (04/18/241299) Pain affecting level of function: Yes (04/18/241299) Cognitive impairment: Yes (04/18/241299) Score - a score of 4 or more is considered at risk for fallin (04/18/241299) [facility]-10 Interventions: Fall education provided, reviewed/provided Fall brochure Treatment/Plan: Continue meds as ordered Metolazone PO 2.5mg given IV Lasix 100mg given IV Rocephin 2gram given F/u visit in 24 hrs 1800ml FR, Low NA diet Keep LE elevated as much as possible Cleanse LE and open areas with NSS - apply aquacel ag to open sores - cover legs with gauze, abds,wrap with kerlix, coban, single layer tubigrip Home Interventions Provided: IV Interventions: Antibiotic and Diuretic Oral Medications: Other; Metolazone 2.5mg Home Intervention: Wound Care and Other; evalution Consulted PCP/Specialist Reinforced current Plan of Care, including self-management and medication regimen Patient's 'Red Flags': Increased edema/redness/weeping of LE's Increased SOB Wt gain of 3 lbs in 24 hrs or 5 lbs in one week Patient Needs to Remember: Call [facility] at with any new or worsening health concerns or problems, red flag symptoms. Referrals Needed: Other none Follow Up: Is there cellular connectivity/connectivity in the home? Yes Does the patient have internet in the home? Yes Patient encouraged to call the intake phone number for all urgent but not emergent issues. Scheduled to follow up with patient in 24 hrs. Peggy De, KARLA 04/16/2024 2:02 PM documented in this encounter Plan of Treatment Upcoming Encounters Date Type Department Care Team (Late st Contact Info) Description 04/19/2024 11:00 AM EDT Home Visit [facility] [place] [address] [facility] [place] [address] Peggy De, RN [address] [place] [address] 04/23/2024 7:15 AM EDT Laboratory [facility] [address] [place] [address] [facility], [facility] [address] [place] [address] 05/08/2024 2:30 PM EDT Telemedicine [facility] [place] [address] [place] [address] Berny Power PA-C [address] [place] [address] Meri Mae, [facility] Press Room Supervisor [address] [place] [address] 05/09/2024 7:00 AM EDT Laboratory [facility] [address] [place] [address] [facility] [address] [place] [address] 05/23/2024 7:00 AM EDT Laboratory [facility] [address] [place] [address] [facility], [facility] [address] [place] [address] 05/31/2024 10:00 AM EDT Home Visit [facility] [address] [place] [address] Peggy De, RN [address] [place] [address] 06/06/2024 7:00 AM EDT Laboratory Lab [facility] [address] [place] [address] [facility], [facility] Draw [address] [address] 06/20/2024 7:00 AM EDT Laboratory Lab [facility] [address] [place] [address] [facility], [facility] Draw [address] [facility] [place] [address] 07/04/2024 7:00 AM EDT Laboratory Lab [facility]bot[facility] [address] [place] [address] [facility], [facility] Draw [address] [place] [address] 07/18/2024 7:00 AM EDT Laboratory Lab [facility] Phlebot[facility] [address] [facility] [place] [address] M[facility], [facility] Draw [address] [place] [address] 08/01/2024 7:00 AM EDT Laboratory Lab [facility]lebot[facility] [address] [place] [address] [facility], [facility] Draw [address] [place] [address] 08/13/2024 8:00 AM EDT Office Visit Cardiology, [facility] [address] [place] [address] Dominick Benz, [address] [place] [address] 08/15/2024 7:00 AM EDT Laboratory Lab [facility] [address], [place] [address] [facility], [facility] [address], [place] [address] 08/29/2024 7:00 AM EST Laboratory Lab [facility] [address] [place] [address] [facility], [facility] Draw [address], [place] [address] 08/29/2024 8:00 AM EST Hospital Encounter ENDO [facility], Endoscopy Room [facility] [address] [place] [phone] Arnie Shrestha MD [address] [place] [address] 08/29/2024 8:00 AM EST - 08/29/2024 8:30 AM EST Surgery ENDO [facility], Endoscopy Room [facility] [address] [place] [phone] Arnie Shrestha MD [address] [place] [address] COLONOSCOPY FLEXIBLE PROXIMAL DIAGNOSTIC 09/02/2024 1:45 PM EST Office Visit Dermatology [facility] [address] [facility] [place] [address] Osvaldo Liu MD [address] [facility] [place] [address] 09/12/2024 7:00 AM EST Laboratory Lab [facility]lebotomy [facility] [address], [place] [address] [facility], [facility] Draw [address], [place] [address] 09/17/2024 11:15 AM EST Office Visit Urology, [facility] [address] [place] [address] Kalpesh Funes MD [address] [place] [address] 09/26/2024 7:00 AM EST Laboratory Lab [facility] [address] [facility] [place] [address] [facility], [facility] Draw [address] [facility] [place] [address] 03/12/2025 3:30 PM EDT Home Visit [facility] [address], [place] [id number] Betina Jacob PA-C [address] [place] [address] Scheduled Procedures Name Priority Associated Diagnoses Date/Ti me COLONOSCOPY FLEXIBLE PROXIMAL DIAGNOSTIC Special screening for malignant neoplasms, colon 08/29/2024 8:00 AM EST Health Maintenance Due Date Last Done Comments Diabetic Foot Exam 03/27/2021 03/27/2020, 08/23/2018 COVID-19 Vaccine ( season) 2023 11/03/2021, 12/19/2020, 12/19/2020, Additional history exists HbA1c 10/12/2023 04/12/2023, 030 03/2023, 03/22/2022, Additional history exists Diabetic Eye Exam 11/01/2023 11/01/2022, , 11/01/2022, Additional history exists Albumin/Creatinine Ratio 12/27/20232 023, 03/08/2019, 04/09/2014 GFR 10/15/2024 04/15/2024, 06/0 03/2024, 05/04/2023, Additional history exists CKD PHOS USE SMARTSET 55931 12/07/202411/23, 12/26/2022, 06/21/2021 Depression Screening 03/07/2025 03/07/2024 CKD HGB USE SMARTSET 26357 04/15/202504/15, 04/15/2024, 04/12/2024, Additional history exists Colonoscopy 10/18/2026 10/18/2023, 09/23, [...] this encounter Medical Devices Implanted Type Area Continuous Drier Helper Device Identifier Shelf Expiration Date Model / Serial / Lot Lens Intraoc 22.5 - [id number] - [id number] Implanted:Qty: 1 on 05/22/2018 by Jasbir Maurer MD at OR [facility] Right: Eye [employer] 11/22/2022 [id number] / [id number] / [id number] Lens Intraoc 21.0 - [id number] - [id number] Implanted:Qty: 1 on 06/05/2018 by Jasbir Maurer MD at OR [facility] Left: Eye [employer] 12/20/2022 [id number] / [id number] / Duraclip 16mm Xlg Repostn - [id number] Implanted:Qty: 1 on 04/12/2024 by Edilberto Lujan MD at OR [facility] cafegive [id number] 12/08/2024 [id number] / / [id number] Duraclip 16mm Xlg Repostn - [id number] Implanted:Qty: 1 on 04/12/2024 by Edilberto Lujan MD at OR [facility] [employer] [id number] 12/08/2024 [id number] / / [id number] Duraclip 16mm Xlg Repostn - [id number] Implanted:Qty: 1 on 04/12/2024 by Edilberto Lujan MD at OR [facility] [employer] [id number] 12/08/2024 [id number] / / [id number] documented as of this encounter Administered Medications Inactive Administered Medications - up to 3 most recent administrations Medication Order MAR Action Action Date Dose Rate Site cefTRIAXone (Rocephin) 2 g in NSS 100 mL ivpb IV Push, 2 g, ONCE, 1 dose, On Mon04/16/24 at 1530, Administer over 30 Minutes New Bag 04/16/2024 3:33 PM EDT 2 g 240 mL/hr Antecubital Left Furosemide (Lasix) inj 100 mg 100 mg, IV Push, ONCE, On Mon04/16/24 at 1530, For 1 dose Given 04/16/2024 3:21 PM EDT 100 mg Antecubital Right metOLazone (Zaroxolyn) tab 2.5 mg 2.5 mg, Oral, ONCE, On Mon04/16/24 at 1530, For 1 dose Given 04/16/2024 3:00 PM EDT 2.5 mg documented in this encounter Advance Directives * [...] Care Power of Attor mayela Care Teams Strategy Execution Consultant Relationship Specialty Start Date End Date Mcihael Hinton MD [address] [place] [address] PCP - General Family Medicine 08/07/17 documented as of this encounter
--- OUTSIDE RECORDS SUMMARY | 2024-05-04 16:49 | External Medical Summary ---
Author Name Unknown Address Unknown Organization [facility] [address] [place] [address] Laboratory Report Ordering Provider Test Date Status BRENDON MENDOSA 04/19/2024 12:00:00 Final Observation Date Value Abnormality Reference (Units ) Status BUN 04/19/2024 12:00:00 36 Above high normal 6-20 (mg/dL) Final Creatinine 04/19/2024 12:00:00 2.1 Above high normal 0.6-1.2 (mg/dL) Final Glomerular filtration rate/1.73 sq M.predicted [Volume Rate/Area] in Serum, Plasma or Blood by Creatinine-based formula (CKD-EPI) 04/19/2024 12:00:00 31 Below low normal >=60 (mL/min) Final eGFR is calculated based on the CKD-EPI 2020 equation Sodium 04/19/2024 12:00:00 137 135-146 (m mol/L) Final Potassium 04/19/2024 12:00:00 3.5 3.5-5.1 (m mol/L) Final Cl 04/19/2024 12:00:00 95 Below low normal 98- 107 (mmol/L) Final CO2 04/19/2024 12:00:00 27 22-32 (mmo l/L) Final Anion gap 04/19/2024 12:00:00 15 7-15 (mmol /L) Final Glucose 04/19/2024 12:00:00 224 Above high normal 70 -120 (mg/dL) Final Calcium 04/19/2024 12:00:00 9.3 8.4-10.2 ( mg/dL) Final Performing Location [facility] [address] [place] [address]
--- OUTSIDE RECORDS SUMMARY | 2024-05-04 16:49 | External Medical Summary ---
Author Name UNSPECIFIED Address Unknown Organization [facility] History of Encounters Reason for Assessment: Recertification ( follow-up) reassessment Functional Assessment Current Ability: Bathing: Able to bathe in shower or tub with the intermittent assistance of another person: (a) for intermittent supervision or encouragement or reminders, OR (b) to get in and out of the shower or tub, OR (c) for washing difficult to reach areas. Current Ability: Ambulation: Requires us e of a two-handed device (e.g., walker or crutches) to walk alone on a level surface and/or requires human supervision or assistance to negotiate stairs or steps or uneven surfaces.
--- OUTSIDE RECORDS SUMMARY | 2024-05-04 16:49 | External Medical Summary | Summary of Care ---
Author Name Unknown Organization [facility] Address [address] [place] [address] Phone [phone] Care Team Providers Care Waterworks Supervisor Name Role Phone Michael Hinton MD Primary Care Provider [phone] Reason for Visit * Reason Onset Date Comments [facility]: Maintenance 04/20/2024 Encounter Details Date Type Department Care Team (Late st Contact Info) Description 04/20/2024 10:15 AM EDT Scheduled Telephone [facility], [facility] [address] [place] [address] [facility], Nurse [facility] [address] [place] [address] Allergies Active Allergy Reactions Criticality Noted Date Comments Fabiano Inhibitors Cough 06/09/2017 Carbidopa W-Levodopa 03/17/2021 Constipation Nsaids Rash 05/17/2018 Contraindicated per grinder operator automatic documented as of this encounter (statuses as of 04/20/2024) Medications Medication Sig Dispensed Refills Start Date [...] mitral valve regurgitation,Coron daniel artery disease involving craig coronary artery of craig heart without angina pectoris,Stage 3b chronic kidney [...] as of this encounter (statuses as of 04/20/2024) Active Problems Problem Noted Date Diagnosed Date [...] knees 03/21/2018 Coronary artery disease invo lving craig coronary artery of craig heart without angina pectoris 03/21/2018 Last Assessment [...] as of this encounter (statuses as of 04/20/2024) Resolved Problems Problem Noted Date Diagnosed Date [...] as of this encounter (statuses as of 04/20/2024) Immunizations Name Administration Dates Next Due COVID-19 mRNA, LNP-s, No Pre serve, 2-Dose Series (FaceTags) 11/03/2021,12/19/2020,11/28/2020 Covid-19 Ad26, Single Dose (Soy/J&J) 12/19/2020,11/28/2020 [...] Telephone Encounter - Esperanza Plummer RN - 04/20/2024 1:13 PM EDT Images from the original note were not included. [facility] Telephonic Nurse Follow-Up Call [facility] Subprogram: Primary Care at Home Follow Up Call Type: Weekend Call Acute issue requiring follow-up call: Other: f/u on acute visit - IV Lasix/Rocephin this week - now on PO abx - how is LE edema/redness/weeping? Objective: 04/19/2024 11:37 AM 04/17/2024 11:54 AM 04/16/2024 2:17 PM 04/15/2024 12:21 PM 04/12/2024 1:00 PM VITALS ACROSS ENCOUNTERS BP 150/80 140/68 130/62 134/68 Pulse 94 90 76 80 82 Weight 73.8 kg 76.7 kg 80.3 kg BMI 27.09 kg/m2 28.12 kg/m2 29.45 kg/m2 Remote Patient Monitoring: AMC Scale: did not weigh today Oxygen Needs: NO CHANGE from baseline supplemental oxygen needs DME Needs: NO DME needs identified Medications: New medication(s) added: Keflex Subjective: Condition Status: Improvement in symptoms but not at baseline Current Concerns: Spoke wit spouse, reports he is doing so much better, Both legs have improved, rle is slightly swollen, lle is back to normal, slight redness noted and small spots are still oozing. Wound care done by nurse three times per week. will see patient on Monday, denies any fever/chills, so happy he is almost back to his normal self Disposition: Routed to [facility] and/or [facility] Team for further advice and Follow up call scheduled for tomorrow with [employer] Marine Mammal Trainer Future Visits Scheduled: Future Appointments-next 60 days Date/Time Provider Specialty Dept Phone 04/21/2024 9:45 AM Juan, Nurse José Miguel Giuliano [facility] [phone] 04/23/2024 7:15 AM [facility] Processing [phone] 05/08/2024 2:30 PM Meri Mae, Community Health Assistant Tennis Professional; Berny Power PA-C [facility] [phone] 05/09/2024 7:00 AM [facility] Processing [phone] 05/23/2024 7:00 AM [facility] Laboratory Processing [phone] 05/31/2024 10:00 AM Peggy De RN [facility] [phone] 06/06/2024 7:00 AM [facility] Processing [phone] 06/20/2024 7:00 AM [facility] Processing [phone] 07/04/2024 7:00 AM [facility] Laboratory Processing [phone] 07/18/2024 7:00 AM [facility] Processing [phone] 08/01/2024 7:00 AM [facility] Processing [phone] 08/13/2024 8:00 AM (Arrive by 7:45 AM) Dominick Benz, DO Cardiology [phone] 08/15/2024 7:00 AM [facility] Processing [phone] 08/29/2024 7:00 AM [facility] Processing [phone] 09/02/2024 1:45 PM (Arrive by 1:30 PM) Osvaldo Liu MD Dermatology [phone] 09/12/2024 7:00 AM [facility] Laboratory Processing [phone] 09/17/2024 11:15 AM (Arrive by 11:00 AM) Kalpesh Funes MD Urology [phone] 09/26/2024 7:00 AM [facility] Laboratory Processing [phone] 03/12/2025 3:30 PM Betina Jacob PA-C [facility] [phone] Esperanza Plummer, RN documented in this encounter Plan of Treatment Upcoming Encounters Date Type Department Care Team (Late st Contact Info) Description 04/21/2024 9:45 AM EDT Scheduled Telephone [facility], [facility] [address] [facility] [place] [address] [facility], Nurse [facility] [address] [facility] [place] [address] 04/23/2024 7:15 AM EDT Laboratory Lab Mobile Phlebotomy [facility] [address] [place] [address] [facility] Draw [address] [place] [address] 05/08/2024 2:30 PM EDT Telemedicine [facility], [facility] 132 [facility] [place] [address] Berny Power PA-C 132 [facility] [place] [address] Meri Mae, Community Health Assistant Tennis Professional [address] [place] [address] 05/09/2024 7:00 AM EDT Laboratory Lab Mobile Phlebotomy [facility] [address] [place] [address] [facility] Draw [address] [employer] [place] [address] 05/23/2024 7:00 AM EDT Laboratory Lab Mobile Phlebotomy [facility] [address] [place] [address] [facility] Draw [address] [employer] [place] [address] 05/31/2024 10:00 AM EDT Home Visit [facility], [facility] [address] [place] [address] Peggy De RN [address] [place] [address] 06/06/2024 7:00 AM EDT Laboratory Lab Mobile Phlebotomy [facility] [address] [place] [address] [facility] Draw [address] [employer] [facility] [address] 06/20/2024 7:00 AM EDT Laboratory Lab Mobile Phlebotomy [facility] [address] [place] [address] [facility] Draw [address] [place] [address] 07/04/2024 7:00 AM EDT Laboratory Lab Mobile Phlebotomy [facility] [address] [place] [address] [facility] Draw [address] [place] [address] 07/18/2024 7:00 AM EDT Laboratory Lab Mobile Phlebotomy [facility] [address] [employer] [facility] [place] [address] [facility] Draw [address] [place] [address] 08/01/2024 7:00 AM EDT Laboratory Lab Mobile Phlebotomy [facility] [address] [place] [address] [facility] Draw [address] [place] [address] 08/13/2024 8:00 AM EDT Office Visit Cardiology, [facility] [address] [place] [address] Dominick Benz, [address] [place] [address] 08/15/2024 7:00 AM EDT Laboratory Lab Mobile Phlebotomy [facility] [address], [place] [address] [facility] Draw [address] [place] [address] 08/29/2024 7:00 AM EST Laboratory Lab Mobile Phlebotomy [facility] [address] [place] [address] [address] [facility] Draw [address] [place] [address] 08/29/2024 8:00 AM EST Hospital Encounter ENDO OSSC, Endoscopy Room [facility] [address] [place] [phone] Arnie Shrestha MD [address] [place] [address] 08/29/2024 8:00 AM EST - 08/29/2024 8:30 AM EST Surgery ENDO OSSC, Endoscopy Room [facility] [address] [place] [phone] Arnie Shrestha MD [address] [place] [address] COLONOSCOPY FLEXIBLE PROXIMAL DIAGNOSTIC 09/02/2024 1:45 PM EST Office Visit Dermatology [facility] [address] [facility] [place] [address] Osvaldo Liu MD [address] [facility] [place] [address] 09/12/2024 7:00 AM EST Laboratory Lab Mobile Phlebotomy [facility] [address] [place] [address] [address] [facility] Draw [address] [place] [address] [address] 09/17/2024 11:15 AM EST Office Visit Urology, [facility] [address] [place] [address] Kalpesh Funes MD [address] [place] [address] 09/26/2024 7:00 AM EST Laboratory Lab Mobile Phlebotomy [facility] [address] [facility] [place] [address] [facility], [facility] Draw 25[address] [facility] [place] [address] 03/12/2025 3:30 PM EDT Home Visit Care at Home [address] [place], [place] [id number] Betina Jacob PA-C [address] [place] [address] Scheduled Procedures Name Priority Associated [...] Additional history exists CKD PHOS USE SMARTSET 28622 12/07/202411/23, 12/26/2022, 06/21/2021 Depression Screening 03/07/2025 03/07/2024 CKD HGB USE SMARTSET 96806 04/19/202504/19, 04/19/2024, 04/15/2024, Additional history exists Colonoscopy [...] this encounter Medical Devices Implanted Type Area Operation Supervisor Device Identifier Shelf Expiration Date Model / Serial / Lot Lens Intraoc 22.5 - [id number] - [id number] Implanted:Qty: 1 on 05/22/2018 by Jasbir Maurer MD at OR [facility] Right: Eye [employer]USCH [employer] LOMB 11/22/2022 [id number] / [id number] / [id number] Lens Intraoc 21.0 - [id number] - [id number] Implanted:Qty: 1 on 06/05/2018 by Jasbir Maurer MD at OR [facility] Left: Eye BAUSCH & LOMB 12/20/2022 [id number] / [id number] / Duraclip 16mm Xlg Repostn - [id number] Implanted:Qty: 1 on 04/12/2024 by Edilberto Lujan MD at OR [facility] [employer] [id number] 12/08/2024 [id number] / / [id number] Duraclip 16mm Xlg Repostn - [id number] Implanted:Qty: 1 on 04/12/2024 by Edilberto Lujan MD at OR [facility] [employer] [id number] 12/08/2024 [id number] / / [id number] Duraclip 16mm Xlg Repostn - [id number] Implanted:Qty: 1 on 04/12/2024 by Edilberto Lujan MD at OR [facility] [employer] [id number] 12/08/2024 [id number] / / [id number] documented as of this encounter Advance Directives [...] Jose Spouse Health Care Power of Attor [place] Care Teams Waterworks Supervisor Relationship Specialty Start Date End Date Michael Hinton MD [address] [place] [address] PCP - General Family Medicine 08/07/17 documented as of this encounter
--- OUTSIDE RECORDS SUMMARY | 2024-05-04 16:49 | External Medical Summary | Summary of Care ---
Author Name Unknown Organization [facility] Address [address] [place] [address] Phone [phone] Care Team Providers Care Process Engineering Manager Name Role Phone Michael Hinton MD Primary Care Provider [phone] Reason for Visit * Reason Comments [facility]: Maintenance Encounter Details Date Type Department Care Team (Late st Contact Info) Description 04/05/2024 11:00 AM EDT Home Visit [facility], [facility] [address] [place] [address] Peggy De, RN [address] [place] [address] Allergies Active Allergy Reactions Criticality Noted Date Comments Fabiano Inhibitors Cough 06/09/2017 Carbidopa W-Levodopa 03/17/2021 Constipation Nsaids Rash 05/17/2018 Contraindicated per contract negotiator documented as of this encounter (statuses as [...] coronary artery of kootenai heart without angina pectoris,Stage 3b chronic kidney [...] scanned document from 11/13/[address] [facility]. 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y [...] mRNA, LNP-s, No Pre serve, 2-Dose Series ([employer] 11/03/2021,12/19/2020,11/28/2020 Covid-19 Ad26, Single Dose (Soy/J&J) [...] Sign Reading Time Taken Comments Blood Pressure 142/70 04/05/2024 11:11 AM EDT Pulse 76 04/05/2024 11:11 AM EDT Temperature 36.7 C (98 F) 04/05/2024 11:11 AM EDT Respiratory Rate 18 04/05/2024 11:11 AM EDT Oxygen Saturation 96% 04/05/2024 11:11 AM EDT Inhaled Oxygen Concentration - - Weight 75.8 kg (167 lb 3.2 oz) 04/05/2024 11:11 AM EDT Height - - Body Mass Index 27.82 03/14/2024 12:05 PM EDT documented in this encounter Progress Notes * Peggy De, RN - 04/05/2024 10:50 AM EDT Images from the original note were not included. [facility] Tank Erector Visit Date: 04/05/2024 Time: 10:50 AM Name: Jesus Jose : 1945 Current Concerns: Pt seen for return RNCM visit Has [facility] nurse coming M-W-F for wound care Has small 0.2 cm open area on anterior RLE and 1.5cm x 1.8 cm open area on anterior LLE Areas cleansed with NSS, applied aquacel ag, gauze and kerlix, secured with coban and tubigrips applied No s/s of infection Scant bleeding from RLE area when bandage removed Moderate yellow drainage from LLE open wound Edema of LE's appears to be at baseline Weights have been stable Physical Exam: BP 142/70 | Pulse 76 | Temp 36.7 C (98 F) | Resp 18 | Wt 75.8 kg (167 lb 3.2 oz) | SpO2 96% | BMI 27.82 kg/m | BSA 1.86 m Pain 0 Physical Exam Constitutional: General: He is not in acute distress. Cardiovascular: Rate and Rhythm: Normal rate and regular rhythm. Pulses: Normal pulses. Pulmonary: Effort: Pulmonary effort is normal. Breath sounds: Normal breath sounds. Abdominal: General: Bowel sounds are normal. Palpations: Abdomen is soft. Musculoskeletal: Right lower leg: Edema (+2) present. Left lower leg: Edema (+1) present. Skin: General: Skin is warm and dry. Neurological: Mental Status: He is alert. Mental status is at baseline. Problems/Symptoms: Review of Systems Constitutional: Negative. HENT: Positive for hearing loss. Eyes: Negative. Respiratory: Positive for shortness of breath (MUSTAFA - at baseline). Cardiovascular: Positive for leg swelling. Gastrointestinal: Negative. Genitourinary: Negative. Musculoskeletal: Positive for arthralgias and gait problem. Skin: Positive for wound (LLE). Psychiatric/Behavioral: Positive for confusion (at baseline). Medication Reconciliation: (See medication list) Does patient take medications as ordered: Yes Patient Well Being: PHQ2/9: No questionnaires available. No change in living situation Denies recent fall [facility]-10 Completed this Visit: No. Routine visit and [...] qam - R knee pain [facility] Scales for daily wts Dry Wt as of 02/28/23: 179lbs Order placed for mobile phlebotomy to draw weekly cbcd and ferritin, fax to Dr. Mcclellan weekly O2 2lnc q - Adonay's - [phone], wear at hs and during day in recliner (naps frequently) Fall precautions-use walker at all time Elevate bilateral LE when sitting in recliner Tubigrip to LE's daily Low Na diet, High protein, low sugar diet - [facility] for wound [facility] Interventions Provided: Home Intervention: Other; eval Reinforced current Plan of Care, including self-management and medication regimen Patient's 'Red Flags': Increased SOB Increased weakness or poor balance Slurring of words (gets with anemia) Patient Needs to Remember: Call [facility] at with any new or worsening health concerns or problems, red flag symptoms. Referrals Needed: Other none Follow Up: Is there cellular connectivity/connectivity in the home? Yes Does the patient have internet in the home? Yes Patient encouraged to call the intake phone number for all urgent but not emergent issues. [facility] the [facility] within the last 30 days? No, Assess appropriateness for upcoming telehealth visits. Cancel telehealth visits & schedule home visit with care prepared foods service team member(s)as indicated. Provider is in agreement with Plan of Care: Yes Scheduled to follow up with patient in one month. Peggy De RN 04/05/2024 10:50 AM documented in this encounter Plan of Treatment Upcoming Encounters Date Type Department Care Team (Late st Contact Info) Description 04/19/2024 11:00 AM EDT Home Visit [facility] [address] [place] [address] Peggy De, RN [address] [place] [address] 04/23/2024 7:15 AM EDT Laboratory Lab Mobile Phlebotomy [facility] [address] [facility] [place] [address] [facility], [facility] Mobile Home Draw [address] [facility] [place], [place] [address] 05/08/2024 2:30 PM EDT Telemedicine [facility], [facility] [address] [place] [address] Berny Power PA-C [address] [place] [address] Meri Mae, Community Health Tax Map Technician [address] [place] [address] 05/09/2024 7:00 AM EDT Laboratory Lab Mobile Phlebotomy [facility] [address] [facility] [place], [place] [address] [facility], Gml Mobile Home Draw [address] [facility] [place], [place] [address] 05/23/2024 7:00 AM EDT Laboratory Lab Mobile Phlebotomy [facility] [address] [facility] [place], [place] [address] [facility], [facility]ml Mobile Home Draw [address] [facility] [place], [place] [address] 05/31/2024 10:00 AM EDT [facility] Visit [facility] [address] [place] [address] Peggy De RN [address] [place] [address] 06/06/2024 7:00 AM EDT Laboratory Lab Mobile Phlebotomy [facility] [address] [facility] [place] [address] [facility], Gml Mobile Home Draw [address] [facility] [place] [address] 06/20/2024 7:00 AM EDT Laboratory Lab Mobile Phlebotomy [facility] [address] [place], [place] [address] [facility], Gml Mobile Home Draw [address] [place] [address] 07/04/2024 7:00 AM EDT Laboratory Lab Mobile Phlebotomy [facility] [address] [place], [place] [address] [facility], Gml Mobile Home Draw [address] [facility] [place] [address] 07/18/2024 7:00 AM EDT Laboratory Lab Mobile Phlebotomy [facility] [address] [place], [place] [address] [facility], Gml Mobile Home Draw [address] [facility] [place] [address] 08/01/2024 7:00 AM EDT Laboratory Lab Mobile Phlebotomy [facility] [address] [place], [place] [address] [facility], Gml Mobile Home Draw [address] [facility] [place] [address] 08/13/2024 8:00 AM EDT Office Visit Cardiology, [facility] 132 [facility] [place] [address] Dominick Benz, DO [address] [place] [address] 08/15/2024 7:00 AM EDT Laboratory Lab Mobile Phlebotomy [facility] [address] [place] [address] [facility], [facility]ml Mobile Home Draw [address] [place] [address] 08/29/2024 7:00 AM EST Laboratory Lab Mobile Phlebotomy [facility] [address] [place], [place] [address] [facility], Gml Mobile Home Draw [address] [place] [address] 08/29/2024 8:00 AM EST Hospital Encounter ENDO OSSC, Endoscopy Room [facility] [address] [place], [place] [id number] Arnie Shrestha MD [address] [place] [address] 08/29/2024 8:00 AM EST - 08/29/2024 8:30 AM EST Surgery ENDO OSSC, Endoscopy Room [facility] [address] [place] [phone] Arnie Shrestha MD [address] [place] [address] COLONOSCOPY FLEXIBLE PROXIMAL DIAGNOSTIC 09/02/2024 1:45 PM EST Office Visit Dermatology [facility] [address] [facility] [place] [address] Osvaldo Liu MD 200 [facility] [place] [address] 09/12/2024 7:00 AM EST Laboratory Lab Mobile Phlebotomy [facility] [address] [facility] [place] [address] M[facility], Gml Mobile Home Draw [address] [facility] [place] [address] 09/17/2024 11:15 AM EST Office Visit Urology, [facility] [address] [place] [address] Kalpesh Funes MD [address] [place] [address] 09/26/2024 7:00 AM EST Laboratory Lab Mobile Phlebotomy [facility] [address] [facility] [place] [address] M[facility], Gml Mobile Home Draw [address] [facility] [place] [address] 03/12/2025 3:30 PM EDT Home Visit Care at Home [address] [place] [address] Betina Jacob PA-C [address] [place] [address] Scheduled Procedures Name Priority Associated Diagnoses Date/Ti [...] Albumin/Creatinine Ratio 12/27/2023 023, 03/08/2019, 04/09/2014 GFR 10/15/2024 04/15/2024, 03/2024, 05/04/2023, Additional history exists CKD PHOS USE SMARTSET 65948 12/07/202411/23, 12/26/2022, 06/21/2021 Depression Screening 03/07/2025 03/07/2024 CKD HGB USE SMARTSET 66645 04/15/202504/15, 04/15/2024, 04/12/2024, Additional history exists Colonoscopy [...] this encounter Medical Devices Implanted Type Area Morphology Teacher Device Identifier Shelf Expiration Date Model / Serial / Lot Lens Intraoc 22.5 - [id number] - [id number] Implanted:Qty: 1 on 05/22/2018 by Jasbir Maurer MD at OR [facility] Right: Eye [employer] 11/22/2022 [id number] / [id number] / [id number] Lens Intraoc 21.0 - [id number] - [id number] Implanted:Qty: 1 on 06/05/2018 by Jasbir Maurer MD at OR [facility] Left: Eye BA[employer]CH [employer] LOM[employer] 12/20/2022 [id number] / [id number] / Duraclip 16mm Xlg Repostn - [id number] Implanted:Qty: 1 on 04/12/2024 by Edilberto Lujan MD at OR [facility] [employer] [id number] 12/08/2024 [id number] / / [id number] Duraclip 16mm Xlg Repostn - [id number] Implanted:Qty: 1 on 04/12/2024 by Edilberto Lujan MD at OR [facility] [employer] [id number] 12/08/2024 [id number] / / [id number] Duraclip 16mm Xlg Repostn - [id number] Implanted:Qty: 1 on 04/12/2024 by Edilberto Lujan MD at OR [facility] [employer] [id number] 12/08/2024 [id number] / / [id number] documented as of this encounter Advance Directives [...] Care Power of Attor mayela Care Teams Process Engineering Manager Relationship Specialty Start Date End Date Michael Hinton MD [address] [place] [address] PCP - General Family Medicine 08/07/17 documented as of this encounter
--- OUTSIDE RECORDS SUMMARY | 2024-05-04 16:49 | External Medical Summary ---
Author Name Unknown Address Unknown Organization [facility] [place] [address] Laboratory Report Ordering Provider Test Date Status BRENDON MENDOSA 04/19/2024 12:00:00 Final Observation Date Value Abnormality Reference (Units ) Status SYNC LEUKOCYTES IN BLOOD BY AUTOMATED COUNT 04/19/2024 12:00:00 4.78 4.00-10.80 (K/uL) Final Segs 04/19/2024 12:00:00 74.3 40.0-75.0 (%) Final Lymphs % 04/19/2024 12:00:00 15.3 Below low normal 18.0-42.0 (%) Final Monos 04/19/2024 12:00:00 9.0 1.0-11.0 (%) Final Eosinophils 04/19/2024 12:00:00 1.0 0.0-6.0 (%) Final Basos 04/19/2024 12:00:00 0.4 0.0-2.0 (%) Final Absolute Segs 04/19/2024 12:00:00 3.55 1.80-7.70 (K/uL) Final Lymphs, absolute 04/19/2024 12:00:00 0.73 Below low normal 1.00-4.80 (K/ul) Final Monos, Abs 04/19/2024 12:00:00 0.43 0.00-1.10 (K/uL) Final Eos, Abs 04/19/2024 12:00:00 0.05 0.00-0.70 (K/uL) Final Basos, Abs 04/19/2024 12:00:00 0.02 0.00-0.20 (K/uL) Final Performing Location [facility] [place] [address]
--- OUTSIDE RECORDS SUMMARY | 2024-05-04 16:49 | External Medical Summary | Summary of Care ---
Author Name Unknown Organization [facility] Address [address] [place] [place] [address] Phone [phone] Care Team Providers Care Supervisor Laboratory Name Role Phone Michael Hinton MD Primary Care Provider [phone] Reason for Visit * Reason Onset Date Comments [facility]: Maintenance 04/18/2024 Encounter Details Date Type Department Care Team (Late st Contact Info) Description 04/18/2024 11:30 AM EDT Scheduled Telephone [facility], [facility] [address] [facility] [place] [address] Coordinator, [facility] [address] [facility] [place] [address] Allergies Active Allergy Reactions Criticality Noted Date Comments Fabiano Inhibitors Cough 06/09/2017 Carbidopa W-Levodopa 03/17/2021 Constipation Nsaids Rash 05/17/2018 Contraindicated per resident physician documented as of this encounter (statuses as of 04/18/2024) Medications Medication Sig Dispensed Refills Start Date End Date Status Glucose Blood (ONETOUCH VERIO) STRPIndications:Typ e 2 diabetes mellitus with hemoglobin A1c goal of less than 8.0% ([facility]) Use up to 4 times a [...] mitral valve regurgitation,Coron daniel artery disease involving [place] coronary artery of [place] heart without angina pectoris,Stage 3b chronic kidney [...] knees 03/21/2018 Coronary artery disease invo lving [place] coronary artery of [place] heart without angina pectoris 03/21/2018 Last Assessment [...] document from 11/13/[address] bains, [facility]. Coronary [...] mRNA, LNP-s, No Pre serve, 2-Dose Series (Kalido) 11/03/2021,12/19/2020,11/28/2020 Covid-19 Ad26, Single Dose (Soy/J&J) 12/19/2020,11/28/2020 [...] encounter Miscellaneous Notes * Telephone Encounter - Gonzales Chiu MD - 04/18/2024 11:30 AM EDT Agree with recommendations as written in note. HV tomorrow will be ideal to assess any improvement and/or new symptoms. E * Telephone Encounter - Esperanza Plummer RN - 04/18/2024 10:48 AM EDT Return call from spouse stating she is in the car going to supervisor picking crew patient's antibiotic. States he did not tell her the truth how he was feeling when intake nurse was on the phone with her this morning, complaining of nausea/sick in stomach, and liquid diarrhea, had 4 bouts yesterday and 3 bouts sofar this morning. Encouraged a BRAT diet and have patient start a probiotic, she will supervisor picking crew imodium at pharmacy while she is there. Routed to [facility] for recommendations Has follow up HV tomorrow morning. NIKI Bower Service Or Work Dispatcher Chief [facility] * Telephone Encounter - Esperanza Plummer RN - 04/18/2024 9:55 AM EDT Images from the original note were not included. [facility] Telephonic Nurse Follow-Up Call [facility] Subprogram: [facility] Home Follow Up Call Type: Routine follow up call / Status Check Acute issue requiring follow-up call: Heart Failure Exacerbation Other: cellulitis Objective: 04/17/2024 11:54 AM 04/16/2024 2:17 PM 04/15/2024 12:21 PM 04/12/2024 1:00 PM 04/12/2024 12:43 PM VITALS ACROSS ENCOUNTERS BP 140/68 130/62 134/68 151/73 Pulse 90 76 80 82 83 Weight 76.7 kg 80.3 kg BMI 28.12 kg/m2 29.45 kg/m2 Remote Patient Monitoring: [facility] Scale: Unsure if weight is accurate this morning as spouse said he was holding on when getting weighed Oxygen Needs: NO supplemental oxygen needs identified DME Needs: NO DME needs identified Medications: New medication(s) added: Keflex 500 mg and DTP started yesterday, double Torsemide for 3 days, tomorrow is last day Subjective: Condition Status: No change in symptoms since yesterday Current Concerns: Spoke with spouse, patient reports legs feel and look the same as yesterday, is keeping them elevated at all times, has slight SOB, SPO2 96% on RA, HR 102, no fever/chills, did eat breakfast prior toweighing self. Spouse will supervisor picking crew Keflex today at pharmacy and have patient start today. Aware of appointment tomorrow with [facility] RNCM at 11am for labs and assessment. Disposition: Routed to [facility] and/or [facility] Care Team for further advice and RNCM visit scheduled Future Visits Scheduled: Future Appointments-next 60 days Date/Time Provider Specialty Dept Phone 04/18/2024 11:30 AM Coordinator, Snehal Tafoya [facility] [phone] 04/19/2024 11:00 AM Peggy De RN [facility] [phone] 04/23/2024 7:15 AM [facility] Laboratory Processing [phone] 05/08/2024 2:30 PM Meri Mae, Community Health Tower Supervisor; Berny Power PA-C [facility] [phone] 05/09/2024 7:00 AM [facility] Laboratory Processing [phone] 05/23/2024 7:00 AM [facility] Laboratory Processing [phone] 05/31/2024 10:00 AM Peggy De RN [facility] [phone] 06/06/2024 7:00 AM [facility] Laboratory Processing [phone] 06/20/2024 7:00 AM [facility] Laboratory Processing [phone] 07/04/2024 7:00 AM [facility] Laboratory Processing [phone] 07/18/2024 7:00 AM [facility] Laboratory Processing [phone] 08/01/2024 7:00 AM [facility] Processing [phone] 08/13/2024 8:00 AM (Arrive by 7:45 AM) Dominick Benz, DO Cardiology [phone] 08/15/2024 7:00 AM [facility] Processing [phone] 08/29/2024 7:00 AM [facility] Processing [phone] 09/02/2024 1:45 PM (Arrive by 1:30 PM) Osvaldo Liu MD Dermatology [phone] 09/12/2024 7:00 AM [facility] Laboratory Processing [phone] 09/17/2024 11:15 AM (Arrive by 11:00 AM) Kalpesh Funes MD Urology [phone] 09/26/2024 7:00 AM [facility] Laboratory Processing [phone] 03/12/2025 3:30 PM Betina Jacob PA-C Family Medicine [phone] Esperanza Plummer RN documented in this encounter Plan of Treatment Upcoming Encounters Date Type Department Care Team (Late st Contact Info) Description 04/19/2024 11:00 AM EDT [facility] Visit [facility] [address] [place] [address] [address] Peggy De, RN [address] [place] [address] 04/23/2024 7:15 AM EDT Laboratory Lab Mobile Phlebotomy [facility] [address] [facility] [place] [address] [facility] Draw [address] [facility] [place] [address] 05/08/2024 2:30 PM EDT Telemedicine [facility], [facility] [address] [facility] [place] [address] Berny Power PA-C [address] [facility] [place] [address] Meri Mae, Community Health Tower Supervisor [address] [place] [address] 05/09/2024 7:00 AM EDT Laboratory Lab Mobile Phlebotomy [facility] [address] [place] [address] [facility] [address] [facility] [place] [address] 05/23/2024 7:00 AM EDT Laboratory Lab Mobile Phlebotomy [facility] [address] [facility] [place] [address] [facility] Draw [address] [facility] [place] [address] 05/31/2024 10:00 AM EDT Home Visit [facility], [facility] [address] [facility] [place] [address] Peggy De, RN [address] [facility] [place] [address] 06/06/2024 7:00 AM EDT Laboratory Lab Mobile Phlebotomy [facility] [address] [place] [address] [facility] Draw [address] [facility] [place] [address] 06/20/2024 7:00 AM EDT Laboratory Lab Mobile Phlebotomy [facility] [address] [place] [address] [facility] Draw [address] [place] [address] 07/04/2024 7:00 AM EDT Laboratory Lab Mobile Phlebotomy [facility] [address] [place] [address] [facility] Draw [address] [place] [address] 07/18/2024 7:00 AM EDT Laboratory Lab Mobile Phlebotomy [facility] [address] [place] [address] [facility] Draw [address] [place] [address] 08/01/2024 7:00 AM EDT Laboratory Lab Mobile Phlebotomy [facility] [address] [place], [place] [address] [facility] Draw [address] [place] [address] 08/13/2024 8:00 AM EDT Office Visit Cardiology, [facility] [address] [place] [address] Dominick Benz, DO [address] [place] [address] 08/15/2024 7:00 AM EDT Laboratory Lab Mobile Phlebotomy [facility] [address] [place] [address] [facility] Draw [address] [place] [address] 08/29/2024 7:00 AM EST Laboratory Lab Mobile Phlebotomy [facility] [address] [place] [address] [facility] Draw [address] [place] [address] 08/29/2024 8:00 AM EST Hospital Encounter ENDO [facility], Endoscopy Room [facility] [address] [place] [phone] Arnie Shrestha MD [address] [place] [address] 08/29/2024 8:00 AM EST - 08/29/2024 8:30 AM EST Surgery ENDO [facility], Endoscopy Room [facility] [address] [place] [phone] Arnie Shrestha MD [address] [place] [address] COLONOSCOPY FLEXIBLE PROXIMAL DIAGNOSTIC 09/02/2024 1:45 PM EST Office Visit Dermatology [facility] [address] [facility] [place] [address] Osvaldo Liu MD [address] [facility] [place] [address] 09/12/2024 7:00 AM EST Laboratory Lab Mobile Phlebotomy [facility] [address] [place] [address] [facility], [facility] Draw [address] [place] [address] 09/17/2024 11:15 AM EST Office Visit Urology, [facility] [address] [place] [address] Kalpesh Funes MD [address] [place] [address] 09/26/2024 7:00 AM EST Laboratory Lab Mobile Phlebotomy [facility] [address] [place] [address] [facility] Draw [address] [place] [address] 03/12/2025 3:30 PM EDT Home Visit Care at Home [address] [facility] [place] [id number] Betina Jacob PA-C [address] [facility] [place] [address] Scheduled Procedures Name Priority Associated Diagnoses Date/Ti [...] 12/27/2023 023, 03/08/2019, 04/09/2014 GFR 10/15/2024 04/15/2024, 0603/2024, 05/04/2023, Additional history exists CKD PHOS USE SMARTSET 28269 12/07/202411/23, 12/26/2022, 06/21/2021 Depression Screening 03/07/2025 03/07/2024 CKD HGB USE SMARTSET 54706 04/15/202504/15, 04/15/2024, 04/12/2024, Additional history exists Colonoscopy [...] this encounter Medical Devices Implanted Type Area Regional Program Manager Device Identifier Shelf Expiration Date Model / Serial / Lot Lens Intraoc 22.5 - [id number] - [id number] Implanted:Qty: 1 on 05/22/2018 by Jasbir Maurer MD at OR [facility] Right: Eye [employer] 11/22/2022 [id number] / [id number] / [id number] Lens Intraoc 21.0 - [id number] - [id number] Implanted:Qty: 1 on 06/05/2018 by Jasbir Maurer MD at OR [facility] Left: Eye [employer]OM[employer] 12/20/2022 [id number] / [id number] / Duraclip 16mm Xlg Repostn - [id number] Implanted:Qty: 1 on 04/12/2024 by Edilberto Lujan MD at OR [facility] [employer]MED [employer]ACHO [id number] 12/08/2024 [id number] / / [id number] Duraclip 16mm Xlg Repostn - [id number] Implanted:Qty: 1 on 04/12/2024 by Edilberto Lujan MD at OR [facility] [employer] [id number] 12/08/2024 [id number] / / [id number] Duraclip 16mm Xlg Repostn - [id number] Implanted:Qty: 1 on 04/12/2024 by Edilberto Lujan MD at OR [facility] [employer] [id number] 12/08/2024 [id number] / / [id number] documented as of this encounter Advance Directives [...] Agents on File Name Relationship [facility] Ashley Jose Spouse Health Care Power of Attor mayela Care Teams Supervisor Laboratory Relationship Specialty Start Date End Date Michael Hinton MD [address] [place] [address] PCP - General Family Medicine 08/07/17 documented as of this encounter
--- OUTSIDE RECORDS SUMMARY | 2024-05-04 16:49 | External Medical Summary | Summary of Care ---
Author Name Unknown Organization [facility] Address [address] [place] [address] Phone [phone] Care Team Providers Care Social Media Community Manager Name Role Phone Michael Hinton MD Primary Care Provider [phone] Reason for Visit * Reason Onset Date Comments Follow Up 04/21/2024 Encounter Details Date Type Department Care Team (Late st Contact Info) Description 04/21/2024 9:45 AM EDT Scheduled Telephone [facility] [place], [facility] [address] [facility] [address] [facility], Nurse [facility] 132 [facility] [place] [address] Allergies Active Allergy Reactions Criticality Noted Date Comments Fabiano Inhibitors Cough 06/09/2017 Carbidopa W-Levodopa 03/17/2021 Constipation Nsaids Rash 05/17/2018 Contraindicated per printed circuit board panels deburrer documented as of this encounter (statuses as [...] mitral valve regurgitation,Coron daniel artery disease involving [place] coronary artery of [place] heart without angina pectoris,Stage 3b chronic kidney [...] 07/28/2021 Last Assessment & Plan: Follows with [facility] hematology Routine labs monitored by hem/onc [...] knees 03/21/2018 Coronary artery disease invo lving [place] coronary artery of [place] heart without angina pectoris 03/21/2018 Last [...] from 11/13/[address] [place] [facility] [place] 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y [...] EDT Laboratory Lab Mobile Phlebotomy [facility] [address] [place] [address] [facility], [facility] Draw [address] [place] [address] 05/08/2024 2:30 PM EDT [facility]medicine [facility] [place], [facility] [address] [facility] [place] [address] Berny Power PA-C [address] [facility] [place] [address] Meri Mae, Community Health Serologist [facility] [place] [address] 05/09/2024 7:00 AM EDT Laboratory Lab Mobile Phlebotomy [facility] [address] [place] [address] [facility], [facility] Home Draw [address] [email or web address] [address] 05/23/2024 7:00 AM EDT Laboratory Lab Mobile Phlebotomy [facility] [address] [facility] [place], [place] [address] [facility], [facility] Mobile Home Draw [address] [facility] [place], [place] [address] 05/31/2024 10:00 AM EDT [facility], [facility] [address] [place] [address] Peggy De RN [address] [place] [address] 06/06/2024 7:00 AM EDT Laboratory Lab Mobile Phlebotomy [facility] [address] [facility] [place] [address] M[facility], [facility] Draw [address] [facility] [place], [place] [address] 06/20/2024 7:00 AM EDT Laboratory Lab Mobile Phlebotomy [facility] [address] [place] [address] [facility], [facility] Draw [address] [place] [address] 07/04/2024 7:00 AM EDT Laboratory Lab Mobile Phlebotomy [facility] [address] [place] [address] M[facility]mg, [facility] Draw [address] [email or web address] [address] 07/18/2024 7:00 AM EDT Laboratory Lab Mobile Phlebotomy [facility] [address] [place] [address] M[facility], [facility] Draw [address] [place] [address] 08/01/2024 7:00 AM EDT Laboratory Lab Mobile Phlebotomy [facility] [address] [facility] [place] [address] [facility], [facility] Draw [address] [place] [place] [address] 08/13/2024 8:00 AM EDT Office Visit Cardiology, [facility] [address] [place] [address] Dominick Benz DO [address] [place] [address] 08/15/2024 7:00 AM EDT Laboratory Lab Mobile Phlebotomy [facility] [address] [place] [address] [address] [facility], [facility] Draw [address] [place] [address] 08/29/2024 7:00 AM EST Laboratory Lab Mobile Phlebotomy [facility] [address] [place] [address] [facility], [facility] Draw [address] [facility] [place] [address] 08/29/2024 8:00 AM EST Hospital Encounter ENDO [facility], Endoscopy Room [facility] [address] [place] [phone] Arnie Shrestha MD [address] [place] [address] 08/29/2024 8:00 AM EST - 08/29/2024 8:30 AM EST Surgery ENDO [facility], Endoscopy Room [facility] [address] [place] [phone] Arnie Shrestha MD [address] [place] [address] COLONOSCOPY FLEXIBLE PROXIMAL DIAGNOSTIC 09/02/2024 1:45 PM EST [facility] [place] [address] [place] [address] [address] Osvaldo Liu MD [address] [facility] [place] [address] 09/12/2024 7:00 AM EST Laboratory Lab Mobile Phlebotomy [facility] [address] [facility] [place] [address] [facility], [facility] Draw [address] [facility] [place] [address] 09/17/2024 11:15 AM EST Office Visit Urology, [facility] [address] [place] [address] Kalpesh Funes MD [address] [place] [address] 09/26/2024 7:00 AM EST Laboratory Lab Mobile Phlebotomy [facility] [address] [facility] [place] [address] [facility], [facility] Draw [address] [facility] [place] [address] 03/12/2025 3:30 PM EDT Home Visit Care at Home [address] [place] [address] Betina Jacob PA-C [address] [place] [address] Scheduled Procedures Name Priority Associated Diagnoses Date/Ti [...] Additional history exists CKD PHOS USE SMARTSET 93220 12/07/202411/23, 12/26/2022, 06/21/2021 Depression Screening 03/07/2025 03/07/2024 CKD HGB USE SMARTSET 47396 04/19/202504/19, 04/19/2024, 04/15/2024, Additional history exists Colonoscopy [...] this encounter Medical Devices Implanted Type Area Computer Terminal Operator Device Identifier Shelf Expiration Date Model / Serial / Lot Lens Intraoc 22.5 - [id number] - [id number] Implanted:Qty: 1 on 05/22/2018 by Jasbir Maurer MD at OR [facility] Right: Eye [employer] 11/22/2022 [id number] / [id number] / [id number] Lens Intraoc 21.0 - [id number] - [id number] Implanted:Qty: 1 on 06/05/2018 by Jasbir Maurer MD at OR [facility] Left: Eye [employer]OM[employer] 12/20/2022 [id number] / [id number] / Duraclip 16mm Xlg Repostn - [id number] Implanted:Qty: 1 on 04/12/2024 by Edilberto Lujan MD at OR [facility] [employer] [id number] 12/08/2024 [id number] / / [id number] Duraclip 16mm Xlg Repostn - [id number] Implanted:Qty: 1 on 04/12/2024 by Edilberto Lujan MD at OR [facility] [employer] [id number] 12/08/2024 [id number] / / [id number] Duraclip 16mm Xlg Repostn - [id number] Implanted:Qty: 1 on 04/12/2024 by Edilberto Lujan MD at OR [facility] [employer] [id number] 12/08/2024 [id number] / / [id number] documented as of this encounter Advance Directives [...] Agents on File Name Relationship Healthcare Agent [facility] p Communication Ashley Jose Spouse Health Care Power of Attor mayela Care Teams Social Media Community Manager Relationship Specialty Start Date End Date Michael Hinton MD [address] [place] [address] PCP - General Family Medicine 08/07/17 documented as of this encounter
--- OUTSIDE RECORDS SUMMARY | 2024-05-04 16:49 | External Medical Summary | Summary of Care ---
Author Name Unknown Organization [facility] Address [address] [place] [address] Phone [phone] Care Team Providers Care Licensed Psychologist Director Name Role Phone Michael Hinton MD Primary Care Provider [phone] Reason for Visit * Reason Comments Outpatient Testing Encounter Details Date Type Department Care Team (Late st Contact Info) Description 04/19/2024 12:30 PM EDT Laboratory Laboratory, [facility] [address] [place] [address] Juan, Specimen Drop Off [facility] [address] [place] [address] Cellulitis, unspecified cellulitis site Allergies Active Allergy Reactions Criticality Noted Date Comments Fabiano Inhibitors Cough 06/09/2017 Carbidopa W-Levodopa 03/17/2021 Constipation Nsaids Rash 05/17/2018 Contraindicated per logistics engineering manager documented as of this encounter (statuses as of 04/19/2024) Medications Medication Sig Dispensed Refills Start Date [...] mitral valve regurgitation,Coron daniel artery disease involving [place] coronary artery of [place] heart without angina pectoris,Stage 3b chronic kidney [...] as of this encounter (statuses as of 04/19/2024) Active Problems Problem Noted Date Diagnosed Date [...] knees 03/21/2018 Coronary artery disease invo lving [place] coronary artery of [place] heart without angina pectoris 03/21/2018 Last Assessment [...] as of this encounter (statuses as of 04/19/2024) Resolved Problems Problem Noted Date Diagnosed Date [...] from 11/13/[address] bains [facility]. Coronary artery disease due to [...] as of this encounter (statuses as of 04/19/2024) Immunizations Name Administration Dates Next Due COVID-19 mRNA, LNP-s, No Pre serve, 2-Dose Series ([email or web address]) 11/03/2021,12/19/2020,11/28/2020 Covid-19 Ad26, Single Dose (Soy/J&J) 12/19/2020,11/28/2020 [...] AM EDT Scheduled Telephone [facility], [address] [address] [facility] Nurse [address] [place] [address] 04/21/2024 9:45 AM EDT Scheduled Telephone [facility], [address] [place] [address] [facility] Nurse [address] [address] 04/23/2024 7:15 AM EDT Laboratory Lab Mobile Phlebotomy [facility] [address] [employer] [facility] [address] M[facility], Gml Mobile [facility] Draw [address] [facility] [place] [address] 05/08/2024 2:30 PM EDT Telemedicine [facility], [address] [address] Breny Power PA-C 132 [place] [address] Meri Mae, [facility] [address] [place] [address] 05/09/2024 7:00 AM EDT Laboratory Lab Mobile Phlebotomy [facility] [address] [employer] [facility] [address] Mvmg, Gml Mobile Home Draw [address] [facility] [address] 05/23/2024 7:00 AM EDT Laboratory Lab Mobile Phlebotomy [facility] [address] [place] [address] Mvmg, Gml Mobile Home Draw [address] [place] [address] 05/31/2024 10:00 AM EDT Home Visit [facility], [facility] [address] [place] [address] Peggy De RN [address] [place] [address] 06/06/2024 7:00 AM EDT Laboratory Lab Mobile Phlebotomy [facility] [address] [place] [address] Mvmg, Gml Mobile Home Draw [address] [place] [address] 06/20/2024 7:00 AM EDT Laboratory Lab Mobile Phlebotomy [facility] [address] [place] [address] Mvmg, Gml Mobile Home Draw [address] [employer] [place] [address] 07/04/2024 7:00 AM EDT Laboratory Lab Mobile Phlebotomy [facility] [address] [place] [address] Mvmg, Gml Mobile Home Draw [address] [place] [address] 07/18/2024 7:00 AM EDT Laboratory Lab Mobile Phlebotomy [facility] [address] [place] [address] Mvmg, Gml Mobile Home Draw [address] [place] [address] 08/01/2024 7:00 AM EDT Laboratory Lab Mobile Phlebotomy [facility] [address] [place] [address] Mvmg, Gml Mobile Home Draw [address] [place] [address] 08/13/2024 8:00 AM EDT Office Visit Cardiology, [facility] [address] [place] [address] Dominick Benz, [address] [place] [address] 08/15/2024 7:00 AM EDT Laboratory Lab Mobile Phlebotomy [facility] 2520 [facility] [place] [address] Mvmg, Gml Mobile Home Draw 2520 [facility] [place] [address] 08/29/2024 7:00 AM EST Laboratory Lab Mobile Phlebotomy [facility] 2520 [facility] [place] [address] Mvmg, Gml Mobile Home Draw 2141 [facility] [place] [address] 08/29/2024 8:00 AM EST Hospital Encounter ENDO OSSC, Endoscopy Room [facility] [address] [place] [id number] Arnie Shrestha MD [address] [place] [address] 08/29/2024 8:00 AM EST - 08/29/2024 8:30 AM EST Surgery ENDO OSS, Endoscopy Room [facility] [address] [place] [phone] Arnie Shrestha MD [address] [place] [address] COLONOSCOPY FLEXIBLE PROXIMAL DIAGNOSTIC 09/02/2024 1:45 PM EST Office Visit Dermatology [facility] 200 [facility] [place] [address] Osvaldo Liu MD 200 [facility] [place] [address] 09/12/2024 7:00 AM EST Laboratory Lab Mobile Phlebotomy [facility] 2520 [facility] [place] [address] Mvmg, Gml Mobile Home Draw [address] [employer] [place] [address] 09/17/2024 11:15 AM EST Office Visit Urology, [facility] [address] [place] [address] Kalpesh Funes MD [address] [place] [address] 09/26/2024 7:00 AM EST Laboratory Lab Mobile Phlebotomy MV [address] [employer] [place] [address] Mvmg, Gml Mobile Home Draw [address] [employer] [place] [address] 03/12/2025 3:30 PM EDT Home Visit Care at Home [address] [place], [place] [id number] Betina Jacob PA-C [address] [place] [address] Pending Results Name Type Priority Associated Diagnoses Date /Time BASIC METABOLIC PANEL Lab Routine Cellulitis, unspecified cellulitis site 04/19/2024 12:00 PM EDT Scheduled Procedures Name Priority Associated Diagnoses Date/Ti ia COLONOSCOPY FLEXIBLE PROXIMAL DIAGNOSTIC Special screening for [...] Additional history exists CKD PHOS USE SMARTSET 36568 12/07/202411/23, 12/26/2022, 06/21/2021 Depression Screening 03/07/2025 03/07/2024 CKD HGB USE SMARTSET 10652 04/15/202504/19, 04/19/2024, 04/15/2024, Additional history exists Colonoscopy 10/18/2026 [...] this encounter Medical Devices Implanted Type Area Branch Credit Counselor Device Identifier Shelf Expiration Date Model / Serial / Lot Lens Intraoc 22.5 - [id number] - [id number] Implanted:Qty: 1 on 05/22/2018 by Jasbir Maurer MD at OR [facility] Right: Eye [employer]OM[employer] 11/22/2022 [id number] / [id number] / [id number] Lens Intraoc 21.0 - [id number] - [id number] Implanted:Qty: 1 on 06/05/2018 by Jasbir Maurer MD at OR [facility] Left: Eye [employer] LOMB 12/20/2022 [id number] / [id number] / Duraclip 16mm Xlg Repostn - [id number] Implanted:Qty: 1 on 04/12/2024 by Edilberto Lujan MD at OR [facility] CONMED NACHO [id number] 12/08/2024 [id number] / / [id number] Duraclip 16mm Xlg Repostn - [id number] Implanted:Qty: 1 on 04/12/2024 by Edilberto Lujan MD at OR [facility] CONMED NACHO [id number] 12/08/2024 [id number] / / [id number] Duraclip 16mm Xlg Repostn - [id number] Implanted:Qty: 1 on 04/12/2024 by Edilberto Lujan MD at OR [facility] CONMED NACHO [id number] 12/08/2024 [id number] / / [id number] documented as of this encounter Procedures Procedure Name Priority Date/Time Associated Diagnosis Comments DIFFERENTIAL, AUTOMATED Routine 04/19/2024 12:00 PM EDT Cellulitis, unspecified cellulitis site CBC Routine 04/19/2024 12:00 PM EDT Cellulitis, unspecified cellulitis site CBC Routine 04/19/2024 12:00 PM EDT Cellulitis, unspecified cellulitis site documented in this encounter Results * (ABNORMAL) DIFFERENTIAL, AUTOMATED (04/19/2024 12:00 PM EDT) WBC 4.78 4.00 - 10.80 K/uL 04/19/2024 12:36 PM EDT [facility] [place] 57-10 Neutrophils % 74.3 40.0 - 75.0 % 04/19/2024 12:36 PM EDT [facility] [place] 57-10 Lymphocytes % 15.3(L) 18.0 - 42.0 % 04/19/2024 12:36 PM EDT [facility] [place] 57-10 Monocytes % 9.0 1.0 - 11.0 % 04/19/2024 12:36 PM EDT [facility] [place] 57-10 Eosinophils % 1.0 0.0 - 6.0 % 04/19/2024 12:36 PM EDT [facility] [place] 57-10 Basophils % 0.4 0.0 - 2.0 % 04/19/2024 12:36 PM EDT [facility] [place] 57-10 Absolute Neutrophils 3.55 1.80 - 7.70 K/uL 04/19/2024 12:36 PM EDT [facility] [place] 57-10 Absolute Lymphocytes 0.73(L) 1.00 - 4.80 K/ul 04/19/2024 12:36 PM EDT [facility] [place] 57-10 Absolute Monocytes 0.43 0.00 - 1.10 K/uL 04/19/2024 12:36 PM EDT [facility] [place] 57-10 Absolute Eosinophils 0.05 0.00 - 0.70 K/uL 04/19/2024 12:36 PM EDT [facility] [place] 57-10 Absolute Basophils 0.02 0.00 - 0.20 K/uL 04/19/2024 12:36 PM EDT [facility] 57-10 Blood Venous blood specimen / Unknown Venipuncture / Unknown 04/19/2024 12:00 PM EDT 04/19/2024 12:25 PM EDT Gonzales Chiu MD LAB BLOOD ORDERABLES [facility] [place] [address] [place] [address] * (ABNORMAL) CBC (04/19/2024 12:00 PM EDT) WBC 4.78 4.00 - 10.80 K/uL 04/19/2024 12:36 PM EDT LAB[facility]ORY [facility] 57-10 RBC 3.48 4.50 - 5.25 M/uL 04/19/2024 12:36 PM EDT LAB[facility]ORY [facility] 57-10 HGB 11.0(L) 14.0 - 16.8 g/dL 04/19/2024 12:36 PM EDT [facility] [place] 57-10 HCT 34.4(L) 40.0 - 48.4 % 04/19/2024 12:36 PM EDT [facility] [place] 57[facility]10 MCV 98.9 82.0 - 99.5 fL 04/19/2024 12:36 PM EDT [facility] [place] 57-10 MCH 31.6 27.0 - 34.0 pg 04/19/2024 12:36 PM EDT [facility] [place] 57-10 MCHC 32.0 32.0 - 36.0 g/dL 04/19/2024 12:36 PM EDT [facility] [place] 57-10 RDW 15.0 11.5 - 15.5 % 04/19/2024 12:36 PM EDT [facility] [place] 57-10 PLT 183 140 - 400 K/uL 04/19/2024 12:36 PM EDT [facility] [place] 57-10 MPV 9.8 6.6 - 11.1 fL 04/19/2024 12:36 PM EDT [facility] [place] 57-10 Blood Venous blood specimen / Unknown Venipuncture / Unknown 04/19/2024 12:00 PM EDT 04/19/2024 12:25 PM EDT Gonzales Chiu MD LAB BLOOD ORDERABLES [facility] [place] 57-10 [address] [place] [address] documented in this encounter Visit Diagnoses Diagnosis Cellulitis, unspecified cellulitis site Special screening for malignant neoplasms, colon documented [...] Agents on File Name Relationship Healthcare Agent [facility] p Communication Ashley Jose Spouse Health Care Power of Attor mayela Care Teams Licensed Psychologist Director Relationship Specialty Start Date End Date Michael Hinton MD [address] [place] [address] PCP - General Family Medicine 08/07/17 documented as of this encounter
--- OUTSIDE RECORDS SUMMARY | 2024-05-04 16:49 | External Medical Summary | Summary of Care ---
Author Name Unknown Organization [facility] Address [address] [place] [facility] [place] [address] Phone [phone] Care Team Providers Care Second Facing Baster Name Role Phone Michael Hinton MD Primary Care Provider [phone] Reason for Visit * Reason Onset Date Comments [facility]: Maintenance 04/18/2024 Encounter Details Date Type Department Care Team (Late st Contact Info) Description 04/18/2024 11:30 AM EDT Scheduled Telephone [facility], [facility] [address] [place] [address] Coordinator, [facility] [address] [place] [address] Allergies Active Allergy Reactions Criticality Noted Date Comments Fabiano Inhibitors Cough 06/09/2017 Carbidopa W-Levodopa 03/17/2021 Constipation Nsaids Rash 05/17/2018 Contraindicated per county health officer documented as of this encounter (statuses [...] mitral valve regurgitation,Coron daniel artery disease involving lumbee coronary artery of [...] scanned document from 11/13/[address] bains, [facility] [place] [place]. 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y [...] mRNA, LNP-s, No Pre serve, 2-Dose Series (Convo) 11/03/2021,12/19/2020,11/28/2020 Covid-19 Ad26, Single Dose (Soy/J&J) 12/19/2020,11/28/2020 [...] Encounter - Esperanza Plummer RN - 04/18/2024 11:52 AM EDT Spouse made aware and verbalized understanding. NIKI Bower Chef Concierge [facility] * Telephone Encounter - Gonzales Chiu MD - 04/18/2024 11:30 AM EDT Agree with recommendations as written in note. HV tomorrow will be ideal to assess any improvement and/or new symptoms. E * Telephone Encounter - Esperanza Plummer RN - 04/18/2024 10:48 AM EDT Return call from spouse stating she is in the car going to pickling drum operator patient's antibiotic. States he did not tell her the truth how he was feeling when intake nurse was on the phone with her this morning, complaining of nausea/sick in stomach, and liquid diarrhea, had 4 bouts yesterday and 3 bouts sofar this morning. Encouraged a BRAT diet and have patient start a probiotic, she will pickling drum operator imodium at pharmacy while she is there. Routed to [facility] for recommendations Has follow up HV tomorrow morning. NIKI Bower Chef Concierge [facility] * Telephone Encounter - Esperanza Plummer RN - 04/18/2024 9:55 AM EDT Images from the original note were not included. [facility] Telephonic Nurse Follow-Up Call [facility] Subprogram: Primary Care at Home [...] 28.12 kg/m2 29.45 kg/m2 Remote Patient Monitoring: [facility] Scale: Unsure if weight is accurate this [...] eat breakfast prior toweighing self. Spouse will pickling drum operator Keflex today at pharmacy and have patient start today. Aware of appointment tomorrow with SNEHAL DELGADILLO at 11am for labs and assessment. Disposition: Routed to [facility] and/or [facility] Care Team for further advice and RNCM visit scheduled Future Visits Scheduled: Future Appointments-next 60 days Date/Time Provider Specialty Dept Phone 04/18/2024 11:30 AM Coordinator, Snehal Tafoya [facility] [phone] 04/19/2024 11:00 AM Peggy De RN [facility] [phone] 04/23/2024 7:15 AM Mvmg, Gml Mobile Home Draw Laboratory Processing [phone] 05/08/2024 2:30 PM Meri Mae, Community [facility] C[employer]; Berny Power PA-C [facility] [phone] 05/09/2024 7:00 AM Mvmg, Gml Mobile Home Draw Laboratory Processing [phone] 05/23/2024 7:00 AM Mvmg, Gml Mobile Home Draw Laboratory Processing [phone] 05/31/2024 10:00 AM Peggy De RN [facility] [phone] 06/06/2024 7:00 AM Mvmg, Gml Mobile Home Draw Laboratory Processing [phone] 06/20/2024 7:00 AM Mvmg, Gml Mobile Home Draw Laboratory Processing [phone] 07/04/2024 7:00 AM Mvmg, Gml Mobile Home Draw Laboratory Processing [phone] 07/18/2024 7:00 AM Mvmg, Gml Mobile Home Draw Laboratory Processing [phone] 08/01/2024 7:00 AM Mvmg, Gml Mobile Home Draw Laboratory Processing [phone] 08/13/2024 8:00 AM (Arrive by 7:45 AM) Dominick Benz, DO Cardiology [phone] 08/15/2024 7:00 AM Mvmg, Gml Mobile Home Draw Laboratory Processing [phone] 08/29/2024 7:00 AM Mvmg, Gml Mobile Home Draw Laboratory Processing [phone] 09/02/2024 1:45 PM (Arrive by 1:30 PM) Osvaldo Liu MD Dermatology [phone] 09/12/2024 7:00 AM Mvmg, Gml Mobile Home Draw Laboratory Processing [phone] 09/17/2024 11:15 AM (Arrive by 11:00 AM) Kalpesh Funes MD Urology [phone] 09/26/2024 7:00 AM Mvmg, Gml Mobile Home Draw Laboratory Processing [phone] 03/12/2025 3:30 PM Betina Jacob PA-C Family Medicine [phone] Esperanza Plummer RN documented in this encounter Plan of Treatment Upcoming Encounters Date Type Department Care Team (Late st Contact Info) Description 04/19/2024 11:00 AM EDT Home Visit [facility], [facility] 132 [place] [address] Peggy De, RN 132 [place] [address] 04/23/2024 7:15 AM EDT Laboratory Lab Mobile Phlebotomy [facility] [address] [place] [address] Mvmg, Gml Mobile Home Draw [facility] [address] 05/08/2024 2:30 PM EDT Telemedicine [facility], [facility] 132 [facility] [place], [place] [address] Berny Power PA-C 132 [place] [address] Meri Mae, Community [facility] [employer] [address] [place] [address] 05/09/2024 7:00 AM EDT Laboratory Lab Mobile Phlebotomy [facility] [address] [facility] [address] Mvmg, Gml Mobile Home Draw [address] [facility] [address] 05/23/2024 7:00 AM EDT Laboratory Lab Mobile Phlebotomy [facility] [address] [facility] [address] Mvmg, Gml Mobile Home Draw [address] [facility] [address] 05/31/2024 10:00 AM EDT Home Visit [facility], [facility] 132 [facility], [place] [address] Peggy De, RN 132 [facility] [place] [address] 06/06/2024 7:00 AM EDT Laboratory Lab Mobile Phlebotomy [facility] [address] [employer] [email or web address] [address] Mvmg, Gml Mobile Home Draw 2520 [facility] [place] [address] 06/20/2024 7:00 AM EDT Laboratory Lab Mobile Phlebotomy [facility] [address] [facility] [place] [address] Mvmg, Gml Mobile Home Draw [address] [facility] [place] [address] 07/04/2024 7:00 AM EDT Laboratory Lab Mobile Phlebotomy [facility] [address] [facility] [place] [address] Mvmg, Gml Mobile Home Draw [address] [facility] [place] [address] 07/18/2024 7:00 AM EDT Laboratory Lab Mobile Phlebotomy [facility] [address] [employer] [place], [place] [address] Mvmg, Gml Mobile Home Draw [address] [facility] [address] 08/01/2024 7:00 AM EDT Laboratory Lab Mobile Phlebotomy M[facility] [address] [facility] [place], [place] [address] Mvmg, Gml Mobile Home Draw [address] [facility] [place] [address] 08/13/2024 8:00 AM EDT Office Visit Cardiology, [facility] [address] [place] [address] Dominick Benz, DO [address] [place] [address] 08/15/2024 7:00 AM EDT Laboratory Lab Mobile Phlebotomy M[facility] 25[address] [facility] [place], [place] [address] Mvmg, Gml Mobile Home Draw [address] [facility] [address] 08/29/2024 7:00 AM EST Laboratory Lab Mobile Phlebotomy M[facility] [address] [facility] [place], [place] [address] Mvmg, Gml Mobile Home Draw 25[address] [facility] [place] [address] 08/29/2024 8:00 AM EST Hospital Encounter ENDO OSS, Endoscopy Room [facility] [address] [place] [address] Arnie Shrestha MD [address] [place] [address] 08/29/2024 8:00 AM EST - 08/29/2024 8:30 AM EST Surgery ENDO OSS, Endoscopy Room [facility] [address] [place] [address] Arnie Shrestha MD [address] [place] [address] COLONOSCOPY FLEXIBLE PROXIMAL DIAGNOSTIC 09/02/2024 1:45 PM EST Office Visit Dermatology [facility] [address] [facility] [place] [address] Osvaldo Liu MD [address] [facility] [place] [address] 09/12/2024 7:00 AM EST Laboratory Lab Mobile Phlebotomy [facility] [address] [facility] [place] [address] Mvmg, Gm Mobile Home Draw 25[address] [facility] [place] [address] 09/17/2024 11:15 AM EST Office Visit Urology, [facility] [address] [place] [address] Kalpesh Funes MD [address] [place] [address] 09/26/2024 7:00 AM EST Laboratory Lab Mobile Phlebotomy [facility] [address] [facility] [place] [address] Mvmg, Gml Mobile Home Draw [address] [employer] [email or web address] [address] 03/12/2025 3:30 PM EDT Home Visit Care at Home [address] [place] [address] Betina Jacob PA-C [address] [facility] [place] [id number] Scheduled Procedures Name Priority Associated Diagnoses Date/Ti [...] 12/27/2023 023, 03/08/2019, 04/09/2014 GFR 10/15/2024 04/15/2024, 06/0 03/2024, 05/04/2023, Additional history exists CKD PHOS USE SMARTSET 54461 12/07/202411/23, 12/26/2022, 06/21/2021 Depression Screening 03/07/2025 03/07/2024 CKD HGB USE SMARTSET 92975 04/15/202504/15, 04/15/2024, 04/12/2024, Additional history exists Colonoscopy [...] this encounter Medical Devices Implanted Type Area Dewaterer Operator Device Identifier Shelf Expiration Date Model / Serial / Lot Lens Intraoc 22.5 - [id number] - [id number] Implanted:Qty: 1 on 05/22/2018 by Jasbir Maurer MD at OR [facility] Right: Eye [employer] 11/22/2022 [id number] / [id number] / [id number] Lens Intraoc 21.0 - [id number] - [id number] Implanted:Qty: 1 on 06/05/2018 by Jasbir Maurer MD at OR [facility] Left: Eye BAUSCH [employer] LOMB 12/20/2022 [id number] / [id number] / Duraclip 16mm Xlg Repostn - [id number] Implanted:Qty: 1 on 04/12/2024 by Edilberto Lujan MD at OR [facility] [employer] NAHCO [id number] 12/08/2024 [id number] / / [id number] Duraclip 16mm Xlg Repostn - [id number] Implanted:Qty: 1 on 04/12/2024 by Edilberto Lujan MD at OR [facility] [employer] [place] [id number] 12/08/2024 [id number] / / [id number] Duraclip 16mm Xlg Repostn - [id number] Implanted:Qty: 1 on 04/12/2024 by Edilberto Lujan MD at OR [facility] [employer] NACHO [id number] 12/08/2024 [id number] / / [id number] documented as of this encounter Advance Directives [...] Agents on File Name Relationship Healthcare Agent [facility] Communication Ashley Jose [facility] Health Care Power of Attor mayela Care Teams Second Facing Baster Relationship Specialty Start Date End Date Michael Hinton MD [address] [place] [address] PCP - General Family Medicine 08/07/17 documented as of this encounter
--- NOTE | 2024-05-04 16:50 | Emergency Department Note ---
Impression & Plan Generalized weakness, Atrial fibrillation with rapid ventricular response, Elevated brain natriuretic peptide (BNP) level ED Provider Note HISTORY OF PRESENT ILLNESS: Patient is an 79-year-old male presenting with fever and weakness. Patient reports that 3 days ago he started having diarrhea. He tested positive for C. difficile and was started on oral vancomycin yesterday. patient reports that today he has felt very weak and rundown. He was trying to get to his car with his to come to the hospital by personal vehicle, but he was too weak to get to the car and ended up lowering himself to the ground. He was able to get back into the house. Home health came to visit the patient today and found that he had a fever of 101F. They called 911. Patient denies any chest pain or shortness of breath. Denies any abdominal pain, nausea or vomiting. He denies any dysuria. Denies any recent cough or recent sick contact exposures. ROS: as above PHYSICAL EXAM: Constitutional: Patient appears in no acute distress. HENT: Head: Normocephalic and atraumatic. Eyes: EOMI, PERRL Mouth/Throat: Mucous membranes moist. Neck: Trachea midline. Neck supple. Cardiovascular: Irregular rhythm. No murmurs, rubs or gallops. Intact distal pulses. Pulmonary/Chest: No respiratory distress. Breath sounds clear and equal bilaterally. No wheezes or rales. Abdominal: Abdomen soft, no tenderness, rebound or guarding. Musculoskeletal: No tenderness or deformity noted. +2 pitting edema of bilateral lower extremities extending to knees. Skin: Warm and dry. No rash, erythema, pallor or cyanosis Psychiatric: Appropriate mood and affect for situation. Neurological: Alert and keenly responsive. CN II-XII grossly intact, moving all extremities equally and fully. MDM: - Vitals signs showed hypertension and tachycardia. - History obtained via patient. History as above. - Chronic conditions affecting care: anemia; dementia; COPD; CAD; HFpEF; paroxysmal Afib - Differential diagnoses include, but are not limited to: UTI; pneumonia; viral infection; ACS; CHF exacerbation; toxic colitis - Order placed for continuous cardiac monitoring. At this time, monitor showed rate of 100 bpm with irregular rhythm, per my interpretation. - External medical records reviewed. [facility] gastroenterology note dated 05/03/2024 was reviewed. Patient had a positive C. difficile test and was prescribed vancomycin. - EKG interpreted by myself showed atrial fibrillation. Rate tachycardic at 111 bpm. QT 346. No acute ischemic changes. - Laboratory workup interpreted by myself showed normal WBC; anemia (Hgb 9.5); normal PT/INR; hyponatremia (Na 133); CKD (Cr 1.66); normal lactate; normal troponin; elevated BNP (344); normal procalcitonin; normal TSH - UA negative for infection - Viral respiratory panel negative - CXR negative for pneumonia, per my interpretation - Blood cultures obtained - CT head wo contrast negative for acute pathology - CT abdomen/pelvis with IV contrast showed pancolitis. - Patient given 1L NS in ER. - Patient noted to be in A-fib with RVR with his heart rate between low 130. Given 5 mg IV Lopressor. Patient not started on a Cardizem drip given his history of CHF. - Discussed case with patient and his at bedside. does not feel comfortable taking him home given the patient's weakness. - Discussion was had with housing case manager about patient's case and need for admission - Hospitalist, Dr. Echeverria, consulted for admission - Patient admitted to [facility] for further evaluation and management. ASSESSMENT AND PLAN: Diagnosis: generalized weakness; elevated BNP; Afib with RVR Plan: admit Past Med/Surg History Problem List (Updated 05/04/24 @ 20:03 by Michelle Dumas MD) Elevated brain natriuretic peptide (BNP) level (Acute) Atrial fibrillation with rapid ventricular response (Acute) Generalized weakness (Acute) Acute GI bleeding (Acute) Anemia (Acute) Transfusion-dependent anemia Elevated lipase Melena Acute on chronic anemia CKD (chronic kidney disease) (Acute) Symptomatic anemia (Acute) Acute GI bleeding (Acute) Blood in both ear canals Osteoarthritis of right knee Bilateral chronic serous otitis media Generalized weakness (Acute) Diarrhea (Acute) Ambulatory dysfunction (Acute) Anemia Paroxysmal A-fib Acute heart failure with preserved ejection fraction (HFpEF) Lumbar transverse process fracture Hypovolemic shock Encounter for pre-operative examination Colon polyps Acute kidney injury superimposed on CKD Heme positive stool Acute blood loss anemia Symptomatic anemia (Acute) Acute hypotension (Acute) Acute GI bleeding (Acute) Status post fall Chronic heart failure with preserved ejection fraction (HFpEF) Hypervolemia (Acute) ETD (eustachian tube dysfunction) Encounter for pre-operative examination Immunosuppressed status Dental infection Generalized weakness (Acute) Congestive heart failure (Acute) Hypoxia (Acute) Hematuria Electrolyte imbalance Diarrhea Coronary artery disease COPD (chronic obstructive pulmonary disease) (Acute) Hypomagnesemia (Acute) DVT prophylaxis Hypomagnesemia CHF (congestive heart failure) (Acute) Acute respiratory failure with hypoxia SOB (shortness of breath) History of total right hip replacement 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 Dementia (Acute) Sensorineural hearing loss (SNHL) of both ears S/P triple vessel [place] [facility] [place] f/u Dr. Benz, [facility] Moderate mitral regurgitation f/u Dr. Benz, [facility] 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Acute) Primary parkinsonism (Acute) GERD (gastroesophageal reflux disease) HTN (hypertension) CKD (chronic kidney disease) stage 3, GFR 30-59 ml/min (Acute) Diabetes type 2, controlled Dyslipidemia BPH (benign prostatic hyperplasia) Medical History GI bleed 09/2023 Anemia 09/2023 inpt at [facility] Atrial fibrillation f/u Dr. Benz, [facility] Eliquis on hold due to anemia History of blood transfusion 10/06/23- was admitted at [facility], low blood count, reason for upcoming procedure 03/24/23, "he's bleeding somewhere, has a low blood count, not sure where losing it from"; f/u [facility]. 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 History of pneumonia end of 01/2023, found in lt. 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 Benz, [facility] Thoracic aortic aneurysm sx [place] [facility] [place] Lumbar spondylosis MUSTAFA (dyspnea on exertion) inh prn Coronary aneurysm (2011) Per cardio records CAD with CABG in 2011 (CHILDS to LAD and exclusion of RCA aneurysm Adverse reaction to anesthetic agent 2011 w/hip replacement>hallucinated for 3 days Orthostatic hypotension (07/2019) Peripheral arterial disease Recurrent cellulitis of lower extremity reason for daily cephalexin Anxiety BPH (benign prostatic hyperplasia) CAD (coronary artery disease) history of CABG (CHILDS to LAD and exclusion of a right coronary artery aneurysm), [place] [facility] [place] Surgical History History of carpal tunnel release of both wrists History of esophagogastroduodenoscopy (EGD) Hx of colonoscopy Hx of bilateral cataract extraction History of neck surgery [facility] w/Dr. Pacheco; ROM-"can't turn it very far side to side nor move it up or down very far" S/P wrist surgery S/P CABG (coronary artery bypass graft) (2011) CHILDS, "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 S/P triple vessel bypass [place]2011[place] [facility] [place]; f/u Dr. Benz Thompson History of right hip replacement H/O foot surgery reconstructive sx on rt. foot H/O eye surgery numerous when he was young Family History Unknown No problems noted. 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 Beliefs That Will Affect Care: None marital status: Current Living Situation: Spouse Current Living Situation Comment: Lives at home with spouse Feels Safe at Home: Yes Assistive Devices: Oxygen - at Night and Walker Allergies Allergies Allergy/AdvReac Type Severity Reaction Status Date / Time NSAIDS (Non-Steroidal Allergy Intermediate Rash Verified 05/04/24 18:06 Anti-Inflamma YONATAN Inhibitors AdvReac Intermediate Cough Verified 05/04/24 18:06 carbidopa AdvReac Intermediate constipatio Verified 05/04/24 18:06 n levodopa AdvReac Intermediate constipatio Verified 05/04/24 18:06 n Home Meds Home Medications Medication Instructions Recorded Confirmed amantadine HCl 100 mg capsule 100 mg PO QAM 05/22/20 05/04/24 torsemide 20 mg tablet 20 mg PO QAM 11/28/22 05/04/24 dutasteride 0.5 mg capsule 0.5 mg PO QAM 01/24/23 05/04/24 donepezil 10 mg tablet 10 mg PO QAM 10/06/23 05/04/24 atorvastatin 40 mg tablet 40 mg PO QAM 01/08/24 05/04/24 acetaminophen 500 mg tablet 1,000 mg PO Q8H PRN Pain 02/29/24 05/04/24 betamethasone dipropionate 0.05 % 1 applic topical BID 02/29/24 05/04/24 topical ointment cholecalciferol (vitamin D3) 25 25 mcg PO QAM 02/29/24 05/04/24 mcg (1,000 unit) capsule levalbuterol tartrate 45 1 puff inhalation Q6H PRN Wheezing 02/29/24 05/04/24 mcg/actuation aerosol inhaler pantoprazole 40 mg tablet,delayed 40 mg PO QAM 02/29/24 05/04/24 release vitamin B complex 1 cap PO DAILY 02/29/24 05/04/24 lactobacillus combination no.4 3 3,000 mmu cells PO QAM 05/04/24 05/04/24 billion cell capsule (Probiotic) Previous Rx's Medication Instructions Recorded escitalopram oxalate 20 mg tablet 20 mg PO QAM #90 tabs 02/09/24 metoprolol succinate 25 mg 25 mg PO QAM #90 tabs 04/30/24 tablet,extended release 24 hr Results & Data (ED) Vital Signs Vital Signs - 24 hr 05/04/24 16:45 05/04/24 17:00 05/04/24 17:24 Temperature 37.5 C Temperature Source Oral Pulse Rate 93 H 77 94 H Pulse Rate [Left Finger] Pulse Rate from SpO2 Sensor Pulse Rhythm Regular Regular Pulse Rhythm [Left Finger] Pulse Strength Normal Pulse Strength [Left Finger] Respiratory Rate 18 18 Respiratory Effort / Characteristics Non-Labored Spontaneous Respiratory Depth Normal Respiratory Pattern Regular Blood Pressure 148/83 H Blood Pressure [Left Arm] Blood Pressure Mean 104 Blood Pressure Mean [Left Arm] Blood Pressure Position Sitting Blood Pressure Position [Left Arm] Pulse Oximetry 98 96 Oxygen Delivery Method Room Air Room Air Sepsis Recent Fever Within 48 Hours No Sepsis New/Unexplained Change in Mental Status No Sepsis Action Taken by Nursing No Action Required 05/04/24 18:42 05/04/24 19:00 05/04/24 19:18 Temperature Temperature Source Pulse Rate 124 H Pulse Rate [Left Finger] 107 H Pulse Rate from SpO2 Sensor 111 H Pulse Rhythm Pulse Rhythm [Left Finger] Regular Pulse Strength Pulse Strength [Left Finger] Normal Respiratory Rate 20 31 H Respiratory Effort / Characteristics Non-Labored Spontaneous Respiratory Depth Normal Respiratory Pattern Regular Blood Pressure 135/84 Blood Pressure [Left Arm] 129/78 Blood Pressure Mean 111 Blood Pressure Mean [Left Arm] 95 Blood Pressure Position Blood Pressure Position [Left Arm] Sitting Pulse Oximetry 96 94 Oxygen Delivery Method Room Air Sepsis Recent Fever Within 48 Hours Sepsis New/Unexplained Change in Mental Status Sepsis Action Taken by Nursing 05/04/24 19:57 Temperature Temperature Source Pulse Rate 126 H Pulse Rate [Left Finger] Pulse Rate from SpO2 Sensor 128 H Pulse Rhythm Pulse Rhythm [Left Finger] Pulse Strength Pulse Strength [Left Finger] Respiratory Rate 38 H Respiratory Effort / Characteristics Respiratory Depth Respiratory Pattern Blood Pressure Blood Pressure [Left Arm] Blood Pressure Mean Blood Pressure Mean [Left Arm] Blood Pressure Position Blood Pressure Position [Left Arm] Pulse Oximetry 96 Oxygen Delivery Method Sepsis Recent Fever Within 48 Hours Sepsis New/Unexplained Change in Mental Status Sepsis Action Taken by Nursing Laboratory Data 05/04/24 17:00 05/04/24 17:00 Lab Results 05/04/24 05/04/24 Range/Units 17:00 18:10 WBC 10.46 (4.8-10.8) K/ul RBC 3.03 L (4.70-6.10) M/uL Hgb 9.5 L (14.0-18.0) g/dl Hct 29.0 L (42.0-52.0) % MCV 95.7 (80.0-100.0) fL MCH 31.4 (25.0-34.0) pg MCHC 32.8 (32.0-36.0) g/dL RDW Std Deviation 55.4 H (36.4-46.3) fL RDW Coeff of Anny 15.7 H (11.5-14.5) % Plt Count 152 (130-400) K/uL MPV 9.2 L (9.4-12.4) fL Immature Gran % (Auto) 1.0 % Neut % (Auto) 88.4 % Lymph % (Auto) 4.7 % Otero % (Auto) 5.6 % Eos % (Auto) 0.1 % Baso % (Auto) 0.2 % Neut # (Auto) 9.25 H (1.40-6.50) K/uL Lymph # (Auto) 0.49 L (1.20-3.40) K/uL Otero # (Auto) 0.59 (0.11-0.59) K/uL Eos # (Auto) 0.01 (0.00-0.50) K/uL Baso # (Auto) 0.02 (0.00-0.20) K/uL Immature Gran # (Auto) 0.10 (0.01-0.20) K/uL PT 11.4 (9.0-12.0) Seconds INR 1.1 (0.9-1.1) Sodium 133 L (136-145) mmol/L Potassium 4.3 (3.5-5.1) mmol/L Chloride 100 (98-107) mmol/L Carbon Dioxide 26 (21-32) mmol/L Anion Gap 7 (3-11) BUN 25 H (6-23) mg/dl Creatinine 1.66 H (0.6-1.4) mg/dl Est Cr Clr Drug Dosing 34.2 ml/min Est GFR ( Amer) 44.4 ml/min Est GFR (Non-Af Amer) 38.3 ml/min BUN/Creatinine Ratio 15.1 (10-20) Glucose 185 H (70-99(Fasting)) mg/dl Lactate 1.5 (0.4-2.0) mmol/L Calcium 8.6 (8.6-10.3) mg/dl Magnesium 1.7 (1.7-2.4) mg/dl Total Bilirubin 0.6 (0.2-1.0) mg/dl AST 25 (13-39) U/L ALT 21 (7-52) U/L Alkaline Phosphatase 129 H (34-104) U/L Troponin I High Sens 11.0 (0-20) pg/ml B-Natriuretic Peptide 344 H (0-100) pg/ml Total Protein 5.7 L (6.0-8.3) gm/dl Albumin 3.3 L (3.4-5.0) gm/dl Globulin 2.4 L (2.5-4.0) gm/dl Albumin/Globulin Ratio 1.4 (0.9-2) Procalcitonin 0.40 (0-0.5) ng/ml TSH 2.361 (0.300-4.500) uIu/ml Urine Color Yellow Urine Appearance Clear (Clear) Urine pH 5.5 (4.5-7.5) Ur Specific [place] 1.017 (1.000-1.030) Urine Protein 1+ H (Negative) Urine Glucose (UA) Negative (Negative) Urine Ketones Negative (Negative) Urine Blood Negative (Negative) Urine Nitrite Negative (Negative) Urine Bilirubin Negative (Negative) Urine Urobilinogen Negative (Negative) Ur Leukocyte Esterase Negative (Negative) Urine WBC (Auto) 0-5 (0-5) /hpf Urine RBC (Auto) 0-2 (0-2) /hpf U Hyaline Cast (Auto) 3-5 H (0-2) /lpf U Epithel Cells (Auto) 0-2 (0-2) /hpf Urine Bacteria (Auto) None Seen (None Seen) Adenovirus (PCR) Not Detected (NotDetected) B. pertussis DNA (PCR) Not Detected (NotDetected) B.parapertussis DNA PCR Not Detected (NotDetected) C. pneumoniae DNA (PCR) Not Detected (NotDetected) Coronavirus OC43 (PCR) Not Detected (NotDetected) Coronavirus HKU1 (PCR) Not Detected (NotDetected) Coronavirus 229E (PCR) Not Detected (NotDetected) SARS-CoV-2 (PCR) Not Detected (NotDetected) Coronavirus NL63 (PCR) Not Detected (NotDetected) Human Metapneumovir PCR Not Detected (NotDetected) Influenza Type A (PCR) Not Detected (NotDetected) Influenza Type B (PCR) Not Detected (NotDetected) M. pneumoniae (PCR) Not Detected (NotDetected) Parainfluenza 1 (PCR) Not Detected (NotDetected) Parainfluenza 2 (PCR) Not Detected (NotDetected) Parainfluenza 3 (PCR) Not Detected (NotDetected) Parainfluenza 4 (PCR) Not Detected (NotDetected) RSV (PCR) Not Detected (NotDetected) Entero/Rhino (PCR) Not Detected (NotDetected) Administered Medications Discontinued Medications Sodium Chloride (Nss) 1,000 mls @ 999 mls/hr IV .Q1H1M JEANETH Stop: 05/04/24 18:00 Last Infusion: 05/04/24 18:32 Dose: Infused Documented By: Admin: 05/04/24 17:32 Dose: 999 mls/hr Documented By: ZEN Sodium Chloride (Nss) 1,000 mls @ 999 mls/hr IV .Q1H1M ONE Stop: 05/04/24 18:44 Last Admin: 05/04/24 18:32 Dose: Not Given Documented By: ZEN Ioversol (Optiray 320 100ml) 91 ml IV ONCE ONE Stop: 05/04/24 18:24 Last Admin: 05/04/24 18:23 Dose: 91 ml Documented By: EDK Imaging Data Radiologist's Impression: Chest X-Ray 05/04/24 16:47 SINGLE VIEW CHEST CLINICAL HISTORY: Generalized weakness FINDINGS: An AP, portable, upright chest radiograph is compared to study dated 02/29/2024. The patient is status post midline sternotomy. The heart is enlarged noting atherosclerotic calcification of the thoracic aorta. The pulmonary vasculature is noncongested. Chronic interstitial thickening is similar to previous. There is bibasilar scarring/atelectasis. No airspace consolidation or large pleural effusion is identified. No pneumothorax is seen. The skeletal structures are osteopenic. There are chronic/healed left-sided rib fractures. Arthritic change is seen in the shoulders. IMPRESSION: Cardiomegaly with no active disease in the chest. ACT 112: Negative or not required by law. Electronically signed by: Gonzales Alvarado M.D. 05/04/2024 5:19 PM Abdomen/Pelvis CT 05/04/24 18:08 CT SCAN OF THE ABDOMEN AND PELVIS WITH IV CONTRAST CLINICAL HISTORY: Generalized weakness. C. difficile infection. COMPARISON STUDY: Abdominal CT dated 10/06/2023. TECHNIQUE: Following the IV administration of 91 cc of Optiray 320, CT scan of the abdomen and pelvis is performed from the lung bases to the proximal femora. Images are reviewed in the axial, sagittal, and coronal planes. IV contrast was administered without complication. A dose lowering technique was utilized adhering to the principles of ALARA. The examination is degraded by motion artifact. CT DOSE: 2451.31 mGy.cm FINDINGS: Lung bases: The patient is status post midline sternotomy. The heart is enlarged and without pericardial effusion. The coronary arteries are densely calcified. There is a tiny hiatal hernia. The lung bases are clear noting bibasilar scarring/atelectasis. Liver: The contrast-enhanced liver is normal in size, contour, and attenuation. There is no intrahepatic biliary ductal dilatation. The hepatic veins and portal veins are patent. Gallbladder: Unremarkable. Spleen: Normal in size and attenuation. 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 The pancreas is mildly atrophic and otherwise grossly unremarkable. Adrenal glands: Unremarkable. Kidneys: The contrast enhanced kidneys demonstrate mild cortical atrophy and are without hydronephrosis. The kidneys enhance symmetrically. Abdominal vasculature: The abdominal aorta is normal in course and caliber noting moderate atherosclerotic calcification. Bowel: There is no bowel obstruction. The colon is normal in caliber. There is mild wall thickening throughout the colon with pericolonic infiltration. This is greatest involving the proximal descending colon, is consistent with a nonspecific pancolitis. There is mild colonic diverticulosis without CT evidence of acute diverticulitis. Metallic foreign bodies/clips are present within the proximal jejunum as seen on image #[id number]. A duodenal diverticulum is incidentally noted. The appendix is well-visualized and normal. Peritoneum: There is no intraperitoneal free air or abdominal ascites. Lymphadenopathy: None. Pelvic viscera: Evaluation of the pelvis is degraded by streak artifact from a right hip arthroplasty. The prostate gland is enlarged and heterogeneous. The bladder wall is thickened/trabeculated indicating chronic outlet obstruction. There is a fat containing right groin hernia. Skeletal structures: The skeletal structures are osteopenic. There is advanced lumbosacral spondylosis. There are bilateral pars defects at L5. Degenerative change and partial fusion is seen in the sacroiliac joints. Arthritic change is noted in the left hip. No lytic or blastic lesions are seen. A right hip arthroplasty is in place. IMPRESSION: 1. Findings are consistent a nonspecific pancolitis. Correlate clinically. 2. The colon is normal in caliber. 3. Cardiomegaly. 4. Metallic foreign bodies/clips are noted in the proximal jejunum. Correlate clinically. 5. Additional findings as above. ACT 112: Negative or not required by law. Electronically signed by: Gonzales Alvarado M.D. 05/04/2024 6:[address] 05/04/24 18:08 CT SCAN OF THE BRAIN WITHOUT IV CONTRAST CLINICAL HISTORY: Generalized weakness. COMPARISON STUDY: CT of the brain dated 07/01/2021. TECHNIQUE: Unenhanced axial CT scan of the brain is performed from the vertex to the skull base. A dose lowering technique was utilized adhering to the principles of ALARA. FINDINGS: Brain parenchyma: There is age-related involutional change noting moderate subcortical and periventricular microangiopathic disease. There is no hemorrhage, mass effect, or evidence of acute territorial ischemia by CT criteria. Mineralization is noted in the basal ganglia. Jain-white matter differentiation is preserved. No extra-axial fluid collection is seen. Ventricles, sulci, cisterns: Prominent secondary to involutional change. Intracranial vasculature: There is atherosclerotic calcification of the cavernous carotid and vertebral arteries. Calvarium: Unremarkable. Sinuses and mastoids: The visualized paranasal sinuses are clear. There are left larger than right massive effusions. Orbits: The bony orbits are grossly intact. There are bilateral ocular lens implants. IMPRESSION: There is no hemorrhage, mass effect, or evidence of acute territorial ischemia by CT criteria. ACT 112: Negative or not required by law. Electronically signed by: Gonzales Alvarado M.D. 05/04/2024 6:38 PM Discharge Plan Visit Data Chief Complaint: Weakness Stated Complaint: WEAKNESS ED Provider: Michelle Dumas Discharge Problem: Generalized weakness, Atrial fibrillation with rapid ventricular response, Elevated brain natriuretic peptide (BNP) level Forms Stand Alone Forms: [facility] [employer] Prescriptions Prescriptions: No Action torsemide 20 mg tablet 20 mg PO QAM MDD 40mg Rx Instructions: Take 20mg by mouth in the morning, May take additional 20mg later in the day as needed for weight gain escitalopram oxalate 20 mg tablet 20 mg PO QAM Qty: 90 3RF metoprolol succinate 25 mg tablet extended release 24 hr 25 mg PO QAM Qty: 90 3RF amantadine HCl 100 mg capsule 100 mg PO QAM dutasteride 0.5 mg Capsule 0.5 mg PO QAM donepezil 10 mg tablet 10 mg PO QAM atorvastatin 40 mg Tablet 40 mg PO QAM betamethasone dipropionate 0.05 % ointment 1 applic TOPICAL BID Rx Instructions: apply to skin lesions and scalp lesions up to two times a day for no longer than two weeks at a time for itch, then, take a two week break. pantoprazole 40 mg tablet,delayed release (DR/EC) 40 mg PO QAM cholecalciferol (vitamin D3) 25 mcg (1,000 unit) Capsule 25 mcg PO QAM acetaminophen 500 mg Tablet 1,000 mg PO Q8H PRN (Reason: Pain) levalbuterol tartrate 45 mcg/actuation HFA aerosol inhaler 1 puff INHALATION Q6H PRN (Reason: Wheezing) vitamin B complex Capsule 1 cap PO DAILY Probiotic 3 billion cell Capsule 3,000 mmu cells PO QAM Rx Instructions: administer with a meal Referrals Referrals: Michael Hinton MD [Primary Care Provider] -
--- OUTSIDE RECORDS SUMMARY | 2024-05-04 16:50 | External Medical Summary | Summary of Care ---
Author Name Unknown Organization [facility] Address [address] [place] [address] Phone [phone] Care Team Providers Care Metal Turner Name Role Phone Michael Hinton MD Primary Care Provider [phone] Encounter Details Date Type Department Care Team (Late st Contact Info) Description 04/16/2024 Telephone [facility], [facility] [address] [facility] [place] [id number] Michael Briggs DO [address] 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 180 Tablet 3 03/13/2024 Active Amantadine HCl 100 MG Oral Capsule (Symmetrel) Take 1 capsule (100 mg total) by mouth daily . 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) 2.5 mg OR ONCE 04/16/2024 04/17/2024 Active cefTRIAXone (Rocephin) 2 g in NSS 100 mL ivpbIndications:History of cellulitis 2 g IV PUSH ONCE 04/16/2024 04/17/2024 Active documented as of this encounter (statuses as of 04/16/2024) Active Problems Problem Noted Date Diagnosed Date [...] knees 03/21/2018 Coronary artery disease invo lving kletsel dehe wintun coronary artery of kletsel dehe wintun heart without angina pectoris 03/21/2018 Last Assessment [...] as of this encounter (statuses as of 04/16/2024) Resolved Problems Problem Noted Date Diagnosed Date [...] scanned document [place] 11/13/[address] [place] [facility] [place] as of this encounter (statuses as of 04/16/2024) Immunizations Name Administration Dates Next Due COVID-19 mRNA, LNP-s, No Pre serve, 2-Dose Series (Datamars) 11/03/2021,12/19/2020,11/28/2020 Covid-19 Ad26, Single Dose (Soy/J&J) 12/19/2020,11/28/2020 [...] Telephone Encounter - Michael Briggs DO - 04/16/2024 3:43 PM EDT [facility] [place] Subprogram: Primary Care at Home Recommendations: Reviewed case with Peggy including pictures of bilateral lower extremities Remains red and edematous. Of note, received 2u PRCs last Monday Labs improved - Hgb up 7 points, eGFR better BNP 3x higher than previous Will add Metolazone + 100mg IV Lasix Increase dose of Rocephin for today to 2g F/U visit again tomorrow. Pt and family agreeable with plan Orders: Plan Furosemide (Lasix) inj 100 mg metOLazone (Zaroxolyn) tab 2.5 mg cefTRIAXone (Rocephin) 2 g in NSS 100 mL ivpb To Do: Please see below for follow up items to be completed and correspondence: FYI to [facility] Care Team Michael Briggs DO Remote [facility] Command - [facility] 04/16/2024 Scheduled appointments in the next 60 days: Future Appointments-next 60 days Date/Time Provider Specialty Dept Phone 04/17/2024 9:30 AM CoordinatorSnehal [facility] [phone] 04/17/2024 12:30 PM Peggy De RN [facility] [phone] 04/23/2024 7:15 AM [facility] Processing [phone] 05/08/2024 2:30 PM Meri Mae, [facility] Emergency Dept Tech; Berny Power PA-C [facility] [phone] 05/09/2024 7:00 AM [facility] Processing [phone] 05/23/2024 7:00 AM [facility] Processing [phone] 05/31/2024 10:00 AM Peggy De RN [facility] [phone] 06/06/2024 7:00 AM [facility] Processing [phone] 06/20/2024 7:00 AM [facility] Processing [phone] 07/04/2024 7:00 AM [facility] Processing [phone] 07/18/2024 7:00 AM [facility] Processing [phone] 08/01/2024 7:00 AM [facility] Processing [phone] 08/13/2024 8:00 AM (Arrive by 7:45 AM) Dominick Benz, Cardiology [phone] 08/15/2024 7:00 AM [facility] Laboratory Processing [phone] 08/29/2024 7:00 AM [facility] Processing [phone] 09/02/2024 1:45 PM (Arrive by 1:30 PM) Osvaldo Liu MD Dermatology [phone] 09/12/2024 7:00 AM [facility] Processing [phone] 09/17/2024 11:15 AM (Arrive by 11:00 AM) Kalpesh Funes MD Urology [phone] 09/26/2024 7:00 AM [facility] Processing [phone] 03/12/2025 3:30 PM Betina Jacob PA-C Family Medicine [phone] documented in this encounter Plan of Treatment Upcoming Encounters Date Type Department Care Team (Late st Contact Info) Description 04/17/2024 9:30 AM EDT Scheduled Telephone [facility], [facility] [address] [place] [address] Coordinator, [facility] [address] [place] [address] [address] 04/17/2024 12:30 PM EDT Home Visit [facility], [facility] [address] [place] [address] [place] [address] Peggy De RN [address] [place] [address] 04/23/2024 7:15 AM EDT Laboratory Lab Mobile Phlebotomy [facility] [address] [place] [address] [facility] Draw [address] [place] [address] 05/08/2024 2:30 PM EDT Telemedicine [facility] [place], [facility] [address] [place] [address] [address] Berny Power PA-C [address] [place] [address] Meri Mae, [facility] Emergency [facility] Tech [address] [place] [address] 05/09/2024 7:00 AM EDT Laboratory Lab Mobile Phlebotomy [facility] [address] [place], [place] [address] [facility] Draw [address] [place], [place] [address] 05/23/2024 7:00 AM EDT Laboratory Lab Mobile Phlebotomy [facility] [address] [place], [place] [address] [facility] Draw [address] [place], [place] [address] 05/31/2024 10:00 AM EDT Home Visit [facility] [address] [place] [address] Peggy De, RN [address] [place] [address] 06/06/2024 7:00 AM EDT Laboratory Lab Mobile Phlebotomy [facility] [address] [place], [place] [address] [facility] Draw [facility] [place], [place] [address] 06/20/2024 7:00 AM EDT Laboratory Lab Mobile Phlebotomy [facility] [address] [place], [place] [address] [facility] Draw [address] [address] 07/04/2024 7:00 AM EDT Laboratory Lab Mobile Phlebotomy [facility] [address] [place], [place] [address] [facility] Draw [address] [place], [place] [address] 07/18/2024 7:00 AM EDT Laboratory Lab Mobile Phlebotomy [facility] [address] [address] [facility] Draw [address] [facility] [place] [address] 08/01/2024 7:00 AM EDT Laboratory Lab Mobile Phlebotomy [facility] [address] [facility] [place] [address] [facility] Draw [address] [facility] [place] [address] 08/13/2024 8:00 AM EDT Office Visit Cardiology, [facility] [address] [place] [address] Dominick Benz DO [address] [place] [address] 08/15/2024 7:00 AM EDT Laboratory Lab Mobile Phlebotomy [facility] [address] [facility] [place] [address] [facility], [facility] Draw [address] [place] [address] 08/29/2024 7:00 AM EST Laboratory Lab Mobile Phlebotomy [facility] [address] [facility] [place] [address] [facility], [facility] Draw [address] [facility] [place] [address] 08/29/2024 8:00 AM EST Hospital Encounter ENDO [facility], Endoscopy Room [facility] [address] [place] [phone] Arnie Shrestha MD [address] [place] [address] 08/29/2024 8:00 AM EST - 08/29/2024 8:30 AM EST Surgery ENDO [facility], Endoscopy Room [facility] [address] [place] [phone] Arnie Shrestha MD [address] [place] [address] COLONOSCOPY FLEXIBLE PROXIMAL DIAGNOSTIC 09/02/2024 1:45 PM EST Office Visit Dermatology [facility] [address] [facility] [place] [address] Osvaldo Liu MD [address] [facility] [place] [address] 09/12/2024 7:00 AM EST Laboratory Lab Mobile Phlebotomy [facility] [address] [facility] [place] [address] [facility] Draw [address] [facility] [place] [address] 09/17/2024 11:15 AM EST Office Visit Urology, [facility] [address] [place] [address] Kalpesh Funes MD [address] [facility] [address] [place] [address] 09/26/2024 7:00 AM EST Laboratory Lab Mobile Phlebotomy [facility] [address] [facility] [place] [address] [facility], [facility] Draw [address] [facility] [place] [address] 03/12/2025 3:30 PM EDT Home Visit Care at Home [address] [place] [address] Betina Jacob PA-C [address] [place] [address] Scheduled Procedures Name Priority Associated Diagnoses Date/Ti [...] Additional history exists CKD PHOS USE SMARTSET 62157 12/07/202411/23, 12/26/2022, 06/21/2021 Depression Screening 03/07/2025 03/07/2024 CKD HGB USE SMARTSET 79783 04/15/202504/15, 04/15/2024, 04/12/2024, Additional history exists Colonoscopy [...] this encounter Medical Devices Implanted Type Area Fiberglasser Device Identifier Shelf Expiration Date Model / Serial / Lot Lens Intraoc 22.5 - [id number] - [id number] Implanted:Qty: 1 on 05/22/2018 by Jasbir Maurer MD at OR [facility] Right: Eye BAUSCH [employer] LOMB 11/22/2022 [id number] / [id number] / [id number] Lens Intraoc 21.0 - [id number] - [id number] Implanted:Qty: 1 on 06/05/2018 by Jasbir Maurer MD at OR [facility] Left: Eye BAUSCH & LOMB 12/20/2022 [id number] / [id number] / Duraclip 16mm Xlg Repostn - [id number] Implanted:Qty: 1 on 04/12/2024 by Edilberto Lujan MD at OR [facility] [employer]ision CommunicationsMED NACHO [id number] 12/08/2024 [id number] / / [id number] Duraclip 16mm Xlg Repostn - [id number] Implanted:Qty: 1 on 04/12/2024 by Edilberto Lujan MD at OR [facility] CONMED NACHO [id number] 12/08/2024 [id number] / / [id number] Duraclip 16mm Xlg Repostn - [id number] Implanted:Qty: 1 on 04/12/2024 by Edilberto Lujan MD at OR [facility] CONMED NACHO [id number] 12/08/2024 [id number] / / [id number] documented as of this encounter Visit Diagnoses Diagnosis Hypertensive 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)- Primary History of cellulitis Special screening for malignant neoplasms, colon documented [...] on File Name [facility] Ashley Jose Spouse Health Care Power of Attor mayela Care Teams Metal Turner Relationship Specialty Start Date End Date Michael Hinton MD [address] [place] [address] PCP - General Family Medicine 08/07/17 documented as of this encounter
--- OUTSIDE RECORDS SUMMARY | 2024-05-04 16:50 | External Medical Summary | Summary of Care ---
Author Name Unknown Organization [facility] Address [address] [facility] Phone [phone] Care Team Providers Care Dam Tender Name Role Phone Michael Hinton MD Primary Care Provider [phone] Reason for Visit * Reason Onset Date Comments [facility]: Maintenance 04/18/2024 Encounter Details Date Type Department Care Team (Late st Contact Info) Description 04/18/2024 11:30 AM EDT Scheduled Telephone [facility], [facility] [address] [facility] [place] [address] Coordinator, [facility] [address] [facility] [place] [address] Allergies Active Allergy Reactions Criticality Noted Date Comments Fabiano Inhibitors Cough 06/09/2017 Carbidopa W-Levodopa 03/17/2021 Constipation Nsaids Rash 05/17/2018 Contraindicated per coal sampler documented as of this encounter (statuses as of 04/18/2024) Medications Medication Sig Dispensed Refills Start Date End Date Status Glucose Blood (ONETOUCH VERIO) STRPIndications:Typ e 2 diabetes mellitus with hemoglobin A1c goal of less than 8.0% ([facility]) Use up to 4 times [...] scanned document [place] 11/13/[address] [place] [facility] [place] 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y [...] mRNA, LNP-s, No Pre serve, 2-Dose Series (IdeaString) 11/03/2021,12/19/2020,11/28/2020 Covid-19 Ad26, Single Dose (Soy/J&J) 12/19/2020,11/28/2020 [...] she is in the car going to picking machine operator patient's antibiotic. States he did not tell her the truth how he was feeling when intake nurse was on the phone with her this morning, complaining of nausea/sick in stomach, and liquid diarrhea, had 4 bouts yesterday and 3 bouts sofar this morning. Encouraged a BRAT diet and have patient start a probiotic, she will picking machine operator imodium at pharmacy while she is there. Routed to [facility] for recommendations Has follow up HV tomorrow morning. NIKI Bower Aircraft Launch And Recovery Technician [facility] * Telephone Encounter - Esperanza Plummer RN - 04/18/2024 9:55 AM EDT Images from the original note were not included. [facility] Telephonic Nurse Follow-Up Call [facility] Subprogram: Primary Care at Home [...] 28.12 kg/m2 29.45 kg/m2 Remote [place] [facility] [place]: Unsure if weight is accurate this [...] eat breakfast prior toweighing self. Spouse will picking machine operator Keflex today at pharmacy and have patient start today. Aware of appointment tomorrow with SNEHAL DELGADILLO at 11am for labs and assessment. Disposition: Routed to [facility] and/or [facility] Care Team for further advice and RNCM visit scheduled Future Visits Scheduled: Future Appointments-next 60 days Date/Time Provider Specialty Dept Phone 04/18/2024 11:30 AM CoordinatorSnehal [facility] [phone] 04/19/2024 11:00 AM Peggy De RN [facility] [phone] 04/23/2024 7:15 AM [facility] Draw Laboratory Processing [phone] 05/08/2024 2:30 PM Meri Mae, [facility] Butter Grader; Berny Power PA-C [facility] [phone] 05/09/2024 7:00 AM [facility] Laboratory Processing [phone] 05/23/2024 7:00 AM [facility] Laboratory Processing [phone] 05/31/2024 10:00 AM Peggy De RN [facility] [phone] 06/06/2024 7:00 AM [facility] Laboratory Processing [phone] 06/20/2024 7:00 AM [facility] Processing [phone] 07/04/2024 7:00 AM [facility] Processing [phone] 07/18/2024 7:00 AM [facility] Laboratory Processing [phone] 08/01/2024 7:00 AM [facility] Laboratory Processing [phone] 08/13/2024 8:00 AM (Arrive by 7:45 AM) Dominick Benz, Cardiology [phone] 08/15/2024 7:00 AM [facility] Laboratory Processing [phone] 08/29/2024 7:00 AM [facility] Laboratory Processing [phone] 09/02/2024 1:45 PM (Arrive by 1:30 PM) Osvaldo Liu MD Dermatology [phone] 09/12/2024 7:00 AM [facility] Draw Laboratory Processing [phone] 09/17/2024 11:15 AM (Arrive by 11:00 AM) Kalpesh Funes MD Urology [phone] 09/26/2024 7:00 AM [facility] Draw Laboratory Processing [phone] 03/12/2025 3:30 PM Betina Jacob PA-C Family Medicine [phone] Esperanza Plummer RN documented in this encounter Plan of Treatment Upcoming Encounters Date Type Department Care Team (Late st Contact Info) Description 04/19/2024 11:00 AM EDT [facility] [address] [place] [address] Peggy De, RN [address] [facility] [place] [address] 04/23/2024 7:15 AM EDT Laboratory Lab Mobile Phlebotomy [facility] [address] [facility] [place] [address] [facility] Draw [address] [facility] [place] [address] 05/08/2024 2:30 PM EDT Telemedicine [facility] [address] [facility] [place] [address] Berny Power PA-C [address] [place] [address] Meri Mae, [facility] Butter Grader [address] [place] [address] 05/09/2024 7:00 AM EDT Laboratory Lab Mobile Phlebotomy [facility] [address] [employer] [facility] [address] [place] [address] [facility], [facility] Home Draw [address] [facility] [place] [address] 05/23/2024 7:00 AM EDT Laboratory Lab Mobile Phlebotomy [facility] [address] [facility] [place] [address] [facility], [facility] Draw [address] [facility] [place] [address] 05/31/2024 10:00 AM EDT [facility] [place] [address] Peggy De RN [address] [employer] [place] [address] 06/06/2024 7:00 AM EDT Laboratory Lab Mobile Phlebotomy [facility] [address] [facility] [place] [address] [facility], [facility] Draw [address] [facility] [place] [address] 06/20/2024 7:00 AM EDT Laboratory Lab Mobile Phlebotomy [facility] [address] [place] [address] [facility], [facility] Draw [address] [facility] [place] [address] 07/04/2024 7:00 AM EDT Laboratory Lab Mobile Phlebotomy [facility] [address] [place] [address] [address] [facility], [facility] Draw [address] [place] [address] 07/18/2024 7:00 AM EDT Laboratory Lab Mobile Phlebotomy [facility] [address] [facility] [place], [place] [address] [facility], [facility] Home Draw [address] [place] [address] 08/01/2024 7:00 AM EDT Laboratory Lab Mobile Phlebotomy [facility] [address] [facility] [place], [place] [address] [facility], [facility] Home Draw [address] [place] [address] 08/13/2024 8:00 AM EDT Office Visit Cardiology, [facility] [address] [place] [address] Dominick Benz DO [address] [place] [address] 08/15/2024 7:00 AM EDT Laboratory Lab Mobile Phlebotomy [facility] [address] [place] [address] [facility], [facility] Home Draw [address] [place] [address] 08/29/2024 7:00 AM EST Laboratory Lab Mobile Phlebotomy [facility] [address] [place] [address] [facility], [facility] Home Draw [address] [place] [address] 08/29/2024 8:00 AM EST Hospital Encounter ENDO [facility], Endoscopy Room [facility] [address] [place] [phone] Arnie Shrestha MD [address] [place] [address] 08/29/2024 8:00 AM EST - 08/29/2024 8:30 AM EST Surgery ENDO [facility], Endoscopy Room [facility] [address] [place] [phone] Arnie Shrestha MD 132 [facility] [place] [address] COLONOSCOPY FLEXIBLE PROXIMAL DIAGNOSTIC 09/02/2024 1:45 PM EST Office Visit Dermatology [facility] [address] [place] [address] Osvaldo Liu MD [address] [facility] [place] [address] 09/12/2024 7:00 AM EST Laboratory Lab Mobile Phlebotomy [facility] [address] [facility] [place] [address] [facility], [facility] Home Draw [address] [facility] [place] [address] 09/17/2024 11:15 AM EST Office Visit Urology, [facility] [place] [address] Kalpesh Funes MD [address] [place] [address] 09/26/2024 7:00 AM EST Laboratory Lab Mobile Phlebotomy [facility] [address] [place] [address] [facility], [facility] Home Draw [address] [facility] [place] [address] 03/12/2025 3:30 PM EDT Home Visit Care at Home [address] [place] [address] Betina Jacob PA-C [address] [place], [place] [address] Scheduled Procedures Name Priority Associated Diagnoses Date/Ti [...] 12/27/2023 023, 03/08/2019, 04/09/2014 GFR 10/15/2024 04/15/2024, 060 03/2024, 05/04/2023, Additional history exists CKD PHOS USE SMARTSET 61556 12/07/202411/23, 12/26/2022, 06/21/2021 Depression Screening 03/07/2025 03/07/2024 CKD HGB USE SMARTSET 28726 04/15/202504/15, 04/15/2024, 04/12/2024, Additional history exists Colonoscopy [...] this encounter Medical Devices Implanted Type Area Strategy Specialist Device Identifier Shelf Expiration Date Model / Serial / Lot Lens Intraoc 22.5 - [id number] - [id number] Implanted:Qty: 1 on 05/22/2018 by Jasbir Maurer MD at OR [facility] Right: Eye [employer]CH [employer]OMB 11/22/2022 [id number] / [id number] / [id number] Lens Intraoc 21.0 - [id number] - [id number] Implanted:Qty: 1 on 06/05/2018 by Jasbir Maurer MD at OR [facility] Left: Eye BAUSCH [employer] LOMB 12/20/2022 [id number] / [id number] / Duraclip 16mm Xlg Repostn - [id number] Implanted:Qty: 1 on 04/12/2024 by Edilberto Lujan MD at OR [facility] Purple Blue BoMED NACHO [id number] 12/08/2024 [id number] / / [id number] Duraclip 16mm Xlg Repostn - [id number] Implanted:Qty: 1 on 04/12/2024 by Edilberto Lujan MD at OR [facility] CONMED NACHO [id number] 12/08/2024 [id number] / / [id number] Duraclip 16mm Xlg Repostn - [id number] Implanted:Qty: 1 on 04/12/2024 by Edilberto Lujan MD at OR [facility] Purple Blue BoMED NACHO [id number] 12/08/2024 [id number] / / [id number] documented as of this encounter Advance Directives [...] Care Power of Attor mayela Care Teams Dam Tender Relationship Specialty Start Date End Date Michael Hinton MD [address] [place] [address] PCP - General Family Medicine 08/07/17 documented as of this encounter
--- OUTSIDE RECORDS SUMMARY | 2024-05-04 16:50 | External Medical Summary | Summary of Care ---
Author Name Unknown Organization [facility] Address [address] [place] [address] Phone [phone] Care Team Providers Care J2Ee Application Developer Name Role Phone Michael Hinton MD Primary Care Provider [phone] Reason for Visit * Reason Onset Date Comments Edema 04/17/2024 Encounter Details Date Type Department Care Team (Late st Contact Info) Description 04/17/2024 Telephone [facility] [address] [facility] [place] [id number] Gonzales Chiu MD [address] [facility] [place] [address] Edema Allergies Active Allergy Reactions Criticality Noted Date Comments Fabiano Inhibitors Cough 06/09/2017 Carbidopa W-Levodopa 03/17/2021 Constipation Nsaids Rash 05/17/2018 Contraindicated per international account executive documented as of this encounter (statuses as of 04/17/2024) Medications Medication Sig Dispensed Refills Start Date [...] mitral valve regurgitation,Coron daniel artery disease involving [place] coronary artery of [place] heart without angina pectoris,Stage 3b chronic kidney [...] 18, 2024. 21 Capsule 04/18/2024 04/25/2024 Active Hospital, Clinic, or Other Facility Administered Medication Ordered Dose Route Frequency Start Date End Date Status cefTRIAXone (Rocephin) inj 2 gIndications:Cellulitis, unspecified cellulitis site 2 g IV PUSH ONCE 04/17/2024 04/18/2024 Active documented as of this encounter (statuses as of 04/17/2024) Active Problems Problem Noted Date Diagnosed Date [...] knees 03/21/2018 Coronary artery disease invo lving st. michael [...] as of this encounter (statuses as of 04/17/2024) Resolved Problems Problem Noted Date Diagnosed Date [...] scanned document from 11/13/[address] [facility]. 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y [...] as of this encounter (statuses as of 04/17/2024) Immunizations Name Administration Dates Next Due COVID-19 [...] Telephone Encounter - Gonzales Chiu MD - 04/17/2024 12:24 PM EDT HV today 04/17 Yesterday IV furosemide and and ceftriaxone. Weight down considerably. Redness persists. Plan DTP given concern for over diuresis with ongoing IV Ceftriaxone 2 g today and then keflex for a week Labs later this week for Hgb check and Cr check. E documented in this encounter Plan of Treatment Upcoming Encounters Date Type Department Care Team (Late st Contact Info) Description 04/23/2024 7:15 AM EDT Laboratory Lab [facility] Phlebotomy [facility] [address] [place] [place] [address] M[facility], [facility] [address] [place] [address] 05/08/2024 2:30 PM EDT Telemedicine [facility] [address] [place] [address] Berny Power PA-C [address] [place] [address] Meri Mae, [facility] Copper Plate Lithographer [address] [place] [address] 05/09/2024 7:00 AM EDT Laboratory Lab [facility] Phlebot[facility] [address] [place] [address] [facility] [address] [place] [address] [address] 05/23/2024 7:00 AM EDT Laboratory Lab Mobile Phlebotomy [facility] [address] [place] [address] M[facility], [facility] Draw [address] [facility] [place], [place] [address] 05/31/2024 10:00 AM EDT Home Visit [facility], [facility] [place] [address] Peggy De RN [address] [place] [address] 06/06/2024 7:00 AM EDT Laboratory Lab Mobile Phlebotomy [facility] [address] [place] [address] M[facility], [facility] Draw [address] [place] [address] 06/20/2024 7:00 AM EDT Laboratory Lab Mobile Phlebotomy [facility] [address] [place] [address] Mvmg, [facility] Draw [address] [place] [address] 07/04/2024 7:00 AM EDT Laboratory Lab Mobile Phlebotomy [facility] [address] [employer] [place] [address] Mvmg, [facility] Draw [address] [place] [address] 07/18/2024 7:00 AM EDT Laboratory Lab Mobile Phlebotomy [facility] [address] [place] [address] Mvmg, [facility] Draw [address] [place] [employer] [place] [address] 08/01/2024 7:00 AM EDT Laboratory Lab Mobile Phlebotomy [facility] [address] [place] [address] Mvmg, G[facility] Draw [address] [place] [address] 08/13/2024 8:00 AM EDT Office Visit Cardiology, [facility] [address] [place] [address] Dominick Benz, [address] [place] [address] 08/15/2024 7:00 AM EDT Laboratory Lab Mobile Phlebotomy [facility] [address] [facility] [place] [address] Mvmg, Gml [facility] Draw [address] [facility] [place] [address] 08/29/2024 7:00 AM EST Laboratory Lab Mobile Phlebotomy [facility] [address] [facility] [place] [address] Mvmg, Gml [facility] Home Draw [address] [place] [address] 08/29/2024 8:00 AM EST Hospital Encounter ENDO OSSC, Endoscopy Room OSS [address] [place] [id number] Arnie Shrestha MD [address] [place] [address] 08/29/2024 8:00 AM EST - 08/29/2024 8:30 AM EST Surgery ENDO OSS, Endoscopy Room [facility] [address] [place] [phone] Arnie Shrestha MD [address] [place] [address] COLONOSCOPY FLEXIBLE PROXIMAL DIAGNOSTIC 09/02/2024 1:45 PM EST Office Visit Dermatology [facility] [address] [facility] [place], [place] [address] Osvaldo Liu MD [address] [facility] [place] [address] 09/12/2024 7:00 AM EST Laboratory Lab Mobile Phlebotomy [facility] [address] [facility] [place], [place] [address] Mvmg, Gml Mobile Home Draw [address] [place], [place] [address] 09/17/2024 11:15 AM EST Office Visit Urology, [facility] [address] [facility] [place] [address] Kalpesh Funes MD [address] [place] [address] 09/26/2024 7:00 AM EST Laboratory Lab Mobile Phlebotomy [facility] [address] [place] [address] Mvmg, Gml Mobile Home Draw [address] [place] [address] 03/12/2025 3:30 PM EDT Home Visit [facility] at Home [address] [place], [place] [id number] Betina Jacob PA-C [address] [place], [place] [id number] Scheduled Orders Name Type Priority Associated Diagnoses Orde r Schedule BASIC METABOLIC PANEL Lab Routine Cellulitis, unspecified cellulitis site Expected: 04/17/2024 (Approximate), Expires: 04/17/2025 CBC WITH WBC DIFFERENTIAL Lab Routine Cellulitis, unspecified cellulitis site Expected: 04/17/2024 (Approximate), Expires: 04/17/2025 Scheduled Procedures Name Priority Associated Diagnoses Date/Ti [...] Additional history exists CKD PHOS USE SMARTSET 66371 12/07/202411/23, 12/26/2022, 06/21/2021 Depression Screening 03/07/2025 03/07/2024 CKD HGB USE SMARTSET 69077 04/15/202504/15, 04/15/2024, 04/12/2024, Additional history exists Colonoscopy [...] this encounter Medical Devices Implanted Type Area Waist Presser Device Identifier Shelf Expiration Date Model / Serial / Lot Lens Intraoc 22.5 - [id number] - [id number] Implanted:Qty: 1 on 05/22/2018 by Jasbir Maurer MD at [facility] Right: Eye [employer] LOMB 11/22/2022 [id number] / [id number] / [id number] Lens Intraoc 21.0 - [id number] - [id number] Implanted:Qty: 1 on 06/05/2018 by Jasbir Maurer MD at OR [facility] Left: Eye BAUSCH [employer] LOMB 12/20/2022 [id number] / [id number] / Duraclip 16mm Xlg Repostn - [id number] Implanted:Qty: 1 on 04/12/2024 by Edilberto Lujan MD at OR [facility] CONMED [employer]ACHO [id number] 12/08/2024 [id number] / / [id number] Duraclip 16mm Xlg Repostn - [id number] Implanted:Qty: 1 on 04/12/2024 by Edilberto Lujan MD at OR [facility] [employer] [id number] 12/08/2024 [id number] / / [id number] Duraclip 16mm Xlg Repostn - [id number] Implanted:Qty: 1 on 04/12/2024 by Edilberto Lujan MD at OR [facility] [employer]MED [employer] [id number] 12/08/2024 [id number] / / [id number] documented as of this encounter Visit Diagnoses Diagnosis Cellulitis, unspecified cellulitis site- Primary Special screening for malignant neoplasms, colon documented [...] Care Power of Attor mayela Care Teams J2Ee Application Developer Relationship Specialty Start Date End Date Michael Hinton MD [address] [place] [address] PCP - General Family Medicine 08/07/17 documented as of this encounter
--- OUTSIDE RECORDS SUMMARY | 2024-05-04 16:50 | External Medical Summary | Summary of Care ---
Author Name Unknown Organization [facility] Address [address] [place] [address] Phone [phone] Care Team Providers Care Placement Director Name Role Phone Michael Hinton MD Primary Care Provider [phone] Reason for Visit * Reason Comments [facility]: Acute Encounter Details Date Type Department Care Team (Late st Contact Info) Description 04/15/2024 12:30 PM EDT Home Visit [facility], [facility] [address] [place] [address] Peggy De, RN [address] [place] [address] Allergies Active Allergy Reactions Criticality Noted Date Comments Fabiano Inhibitors Cough 06/09/2017 Carbidopa W-Levodopa 03/17/2021 Constipation Nsaids Rash 05/17/2018 Contraindicated per pill maker documented as of this encounter (statuses as of 04/15/2024) Medications Medication Sig Dispensed Refills Start Date End Date Status Glucose Blood (ONETOUCH VERIO) STRPIndications:Typ e 2 diabetes mellitus with hemoglobin A1c goal of less than 8.0% ([facility]) Use up to 4 times a [...] mitral valve regurgitation,Coron daniel artery disease involving [place] coronary artery of [place] heart without angina pectoris,Stage 3b chronic kidney disease (HCC) Take 1 Tablet by mouth in the morning. 180 Tablet 3 03/13/2024 Active Amantadine HCl 100 MG Oral Capsule (Symmetrel) Take 1 capsule (100 mg total) by mouth daily . 90 Capsule 03/19/2024 Active documented as of this encounter (statuses as of 04/15/2024) Active Problems Problem Noted Date Diagnosed Date [...] knees 03/21/2018 Coronary artery disease invo lving [place] coronary artery of [place] heart without angina pectoris 03/21/2018 Last Assessment [...] as of this encounter (statuses as of 04/15/2024) Resolved Problems Problem Noted Date Diagnosed Date [...] scanned document from 11/13/[address] [facility] Coronary [...] as of this encounter (statuses as of 04/15/2024) Immunizations Name Administration Dates Next Due COVID-19 mRNA, LNP-s, No Pre serve, 2-Dose Series (DoTheGlobe) 11/03/2021,12/19/2020,11/28/2020 Covid-19 Ad26, Single Dose (Soy/J&J) 12/19/2020,11/28/2020 [...] Sign Reading Time Taken Comments Blood Pressure 134/68 04/15/2024 12:21 PM EDT Pulse 80 04/15/2024 12:21 PM EDT Temperature 36.7 C (98 F) 04/15/2024 12:21 PM EDT Respiratory Rate 18 04/15/2024 12:21 PM EDT Oxygen Saturation 94% 04/15/2024 12:21 PM EDT Inhaled Oxygen Concentration - - Weight 80.3 kg (177 lb) 04/15/2024 12:21 PM EDT Height - - Body Mass Index 29.45 04/09/2024 9:19 AM EDT documented in this encounter Progress Notes * Peggy eD RN - 04/15/2024 12:10 PM EDT Images from the original note were not included. [facility] Branch Office ManagerBrass Pourer Visit Date: 04/15/2024 Time: 12:11 PM Name: Jesus Jose : 1945 Current Concerns: Communication Note Name: Jesus Jose Situation: Called to pt's home for wt gain, mild increase in MUSTAFA, increased redness, edema and weeping of BLE's- reports it started Monday and get worse just since yesterday Wt increased from 170.4 lbs yesterday to 177 lbs today Background: 79 yr old male with PmHx of CHF with stage 3b CKD, CAD, HTN, Afib, MVR, Type 2 DM, Dementia, Parkinson's, cerebral atrophy, hx of cellulitis Assessment: Pt sitting in recliner with legs elevated BLE with increased edema, +3 of right and +2 of left. Has redness worse of LLE -no warmth Crackles noted B/l bases BP 134/68 | Pulse 80 | Temp 36.7 C (98 F) | Resp 18 | Wt 80.3 kg (177 lb) | SpO2 94% | BMI 29.45 kg/m | BSA 1.92 m Recommendation: TT to [facility] Briggs Orders to administer 100mg IV Lasix now and 1gram IV Rocephin push Also obtained BMP, BNP, and CBC IV access obtained in right AC and left in place Will f/u with visit tomorrow Pt tolerated the the above well and pt//dtr educated on medications given Labs taken to [facility] Problems/Symptoms: Review of Systems Constitutional: Positive for fatigue. Respiratory: Positive for shortness of breath. Cardiovascular: Positive for leg swelling. Musculoskeletal: Positive for arthralgias and gait problem. Skin: Positive for color change (erythema BLE) and wound (RLE open areas). Neurological: Positive for weakness. Physical Exam: BP 134/68 | Pulse 80 | Temp 36.7 C (98 F) | Resp 18 | Wt 80.3 kg (177 lb) | SpO2 94% | BMI 29.45 kg/m | BSA 1.92 m Pain 5 Physical Exam Cardiovascular: Rate and Rhythm: Normal rate and regular rhythm. Pulses: Normal pulses. Heart sounds: Normal heart sounds. Pulmonary: Effort: Pulmonary effort is normal. Breath sounds: Rales (BLL) present. Abdominal: Palpations: Abdomen is soft. Musculoskeletal: Right lower leg: Edema (+3) present. Left lower leg: Edema (+2) present. Skin: General: Skin is warm. Findings: Erythema and lesion present. Neurological: Mental Status: He is alert. Mental status is at baseline. [facility]-10 Completed this Visit: Yes. [facility]-10: Reason Completed: Status post acute event/change in baseline [facility]-10 ([facility]) Fall Risk Assessment Tool Age 65+: Yes (04/15/241899) Diagnosis (3 or more co-existing): Yes (04/15/241899) Prior history of falls within 3 months: Yes (04/15/241899) Incontinence: Yes (04/15/241899) Visual impairment: No (04/15/241899) Impaired functional mobility: Yes (04/15/241899) Environmental hazards: No (04/15/241899) Poly Pharmacy (4 or more prescriptions - any type): Yes (04/15/241899) Pain affecting level of function: Yes (04/15/241899) Cognitive impairment: Yes (04/15/241899) Score - a score of 4 or more is considered at risk for fallin (04/15/241899) [facility]-10 Interventions: Fall education provided, reviewed/provided Fall brochure Treatment/Plan: Continue meds as ordered IV 100mg Lasix given IV Rocephin 1 gram push given CBC, BMP and BNP taken to lab F/U visit tomorrow Continue with daily wts [facility] nurse coming today for wound care Keep BLE elevated as much as possible Fall precautions - slow position change, use of assistive device at all times/supervision/human assist if needed Home Interventions Provided: IV Interventions: Antibiotic and Diuretic Labs/Specimen Collection Performed CBC, BMP, BNP Home Intervention: Other; eval Consulted PCP/Specialist Reinforced current Plan of Care, including self-management and medication regimen Patient's 'Red Flags': Increased LE edema/redness/weeping Wt gain of 3 lbs in 24 hrs or 5 lbs in one week Increased SOB Patient Needs to Remember: Call [facility] at with any new or worsening [...] patient in 24 hrs. Peggy De RN 04/15/2024 12:11 PM documented in this encounter Plan of Treatment Upcoming Encounters Date Type Department Care Team (Late st Contact Info) Description 04/16/2024 2:00 PM EDT Home Visit [facility] at [address] [place] [address] Peggy De, RN [address] [facility] [place] [address] 04/17/2024 9:30 AM EDT Scheduled Telephone [facility], [facility] 132 [facility] [place] [address] Coordinator, [facility] [place] [address] 04/23/2024 7:15 AM EDT Laboratory Lab Mobile Phlebotomy [facility] [email or web address] [facility] [place] [address] M[facility], [facility] [address] [facility] [address] 05/08/2024 2:30 PM EDT Telemedicine [facility], [facility] 132 [facility] [place] [address] Berny Power PA-C 132 [facility] [place] [address] Meri Mae, Community [facility] Clinical Academic Allergist [address] [place] [address] 05/09/2024 7:00 AM EDT Laboratory Lab Mobile Phlebotomy [facility] [address] [facility] [place] [address] Mvmg, Gml Mobile Home Draw [email or web address] [facility] [place] [address] 05/23/2024 7:00 AM EDT Laboratory Lab Mobile Phlebotomy [facility] [email or web address] [facility] [place] [address] Mvmg, Gml Mobile Home Draw [address] [facility] [place], [place] [address] 05/31/2024 10:00 AM EDT Home Visit [facility], [facility] 132 [facility] [place] [address] Peggy De, RN [address] [place] [address] 06/06/2024 7:00 AM EDT Laboratory Lab Mobile Phlebotomy [facility] [address] [employer] [place] [address] Mvmg, Gml Mobile Home Draw [address] [place] [address] 06/20/2024 7:00 AM EDT Laboratory Lab Mobile Phlebotomy [facility] [address] [employer] [place] [address] Mvmg, Gml Mobile Home Draw [address] [place] [address] 07/04/2024 7:00 AM EDT Laboratory Lab Mobile Phlebotomy [facility] [address] [place] [address] Mvmg, Gml Mobile Home Draw [address] [place] [address] 07/18/2024 7:00 AM EDT Laboratory Lab Mobile Phlebotomy [facility] [address] [employer] [place] [address] Mvmg, Gml Mobile Home Draw [address] [place] [address] 08/01/2024 7:00 AM EDT Laboratory Lab Mobile Phlebotomy [facility] [address] [place] [address] Mvmg, Gml Mobile Home Draw [address] [place] [address] 08/13/2024 8:00 AM EDT Office Visit Cardiology, [facility] [address] [place] [address] Dominick Benz, [address] [place] [address] 08/15/2024 7:00 AM EDT Laboratory Lab Mobile Phlebotomy [facility] [address] [employer] [place] [address] Mvmg, Gml Mobile Home Draw [address] [facility] [place], [place] [address] 08/29/2024 7:00 AM EST Laboratory Lab Mobile Phlebotomy [facility] [address] [facility] [place] [address] Mvmg, Gml Mobile Home Draw [address] [place] [address] 08/29/2024 8:00 AM EST Hospital Encounter ENDO OSSC, Endoscopy Room [facility] [address] [place] [address] Arnie Shrestha MD [address] [place] [address] 08/29/2024 8:00 AM EST - 08/29/2024 8:30 AM EST Surgery ENDO OSS, Endoscopy Room [facility] [address] [place] [phone] Arnie Shrestha MD [address] [place] [address] COLONOSCOPY FLEXIBLE PROXIMAL DIAGNOSTIC 09/02/2024 1:45 PM EST Office Visit Dermatology [facility] 200 [facility] [place] [address] Osvaldo Liu MD [address] [facility] [place] [address] 09/12/2024 7:00 AM EST Laboratory Lab Mobile Phlebotomy [facility] [address] [facility] [place], [place] [address] Mvmg, Gm Mobile Home Draw [address] [facility] [place], [place] [address] 09/17/2024 11:15 AM EST Office Visit Urology, [facility] [address] [place] [address] Kalpesh Funes MD [address] [address] [place] [address] 09/26/2024 7:00 AM EST Laboratory Lab Mobile Phlebotomy [facility] [address] [facility] [place] [address] Mvmg, Gml Mobile Home Draw [address] [facility] [place] [address] 03/12/2025 3:30 PM EDT Home Visit [facility] at Home [address] [place] [address] Betina Jacob PA-C [address] [place] [address] Scheduled Procedures Name Priority Associated Diagnoses Date/Ti [...] Additional history exists CKD PHOS USE SMARTSET 18321 12/07/202411/23, 12/26/2022, 06/21/2021 Depression Screening 03/07/2025 03/07/2024 CKD HGB USE SMARTSET 20076 04/15/202504/15, 04/15/2024, 04/12/2024, Additional history exists Colonoscopy [...] this encounter Medical Devices Implanted Type Area Box Spring Frame Builder Device Identifier Shelf Expiration Date Model / Serial / Lot Lens Intraoc 22.5 - [id number] - [id number] Implanted:Qty: 1 on 05/22/2018 by Jasbir Maurer MD at OR [facility] Right: Eye [employer]CH [employer] LOMB 11/22/2022 [id number] / [id number] / [id number] Lens Intraoc 21.0 - [id number] - [id number] Implanted:Qty: 1 on 06/05/2018 by Jasbir Maurer MD at OR [facility] Left: Eye BAUSCH [employer] LOMB 12/20/2022 [id number] / [id number] / Duraclip 16mm Xlg Repostn - [id number] Implanted:Qty: 1 on 04/12/2024 by Edilberto Lujan MD at OR [facility] [place] [employer] [place] [id number] 12/08/2024 [id number] / / [id number] Duraclip 16mm Xlg Repostn - [id number] Implanted:Qty: 1 on 04/12/2024 by Edilberto Lujan MD at OR [facility] Popular [employer] [place] [id number] 12/08/2024 [id number] / / [id number] Duraclip 16mm Xlg Repostn - [id number] Implanted:Qty: 1 on 04/12/2024 by Edilberto Lujan MD at OR [facility] [place] [employer] [facility] [id number] 12/08/2024 [id number] / / [id number] documented as of this encounter Administered Medications Inactive Administered Medications - up to 3 most recent administrations Medication Order MAR Action Action Date Dose Rate Site cefTRIAXone (Rocephin) inj 1 g 1 g, IV Push, ONCE, On Mon04/15/24 at 1245, For 1 dose Given 04/15/2024 1:08 PM EDT 1 g Antecubital Right Furosemide (Lasix) inj 100 mg 100 mg, IV Push, ONCE, On Mon04/15/24 at 1245, For 1 dose Given 04/15/2024 1:19 PM EDT 100 mg Antecubital Right documented in this encounter Advance Directives * [...] File Name Relationship [facility] Ashley Fantasma Jose Spouse Health Care Power of Attor mayela Care Teams Placement Director Relationship Specialty Start Date End Date Michael Hinton MD 132 [facility] [place] [address] PCP - General Family Medicine 08/07/17 documented as of this encounter
--- OUTSIDE RECORDS SUMMARY | 2024-05-04 16:50 | External Medical Summary | Summary of Care ---
Author Name Unknown Organization [facility] Address [address] [facility] [place] [address] Phone [phone] Care Team Providers Care Neonatal Critical Care Nurse Name Role Phone Michael Hinton MD Primary Care Provider [phone] [phone] Reason for Visit * Reason Onset Date Comments [facility]: Maintenance 04/18/2024 Encounter Details Date Type Department Care Team (Late st Contact Info) Description 04/18/2024 11:30 AM EDT Scheduled Telephone [facility], [facility] [address] [facility] [place] [address] Coordinator, [facility] [address] [facility] [place] [address] Allergies Active Allergy Reactions Criticality Noted Date Comments Fabiano Inhibitors Cough 06/09/2017 Carbidopa W-Levodopa 03/17/2021 Constipation Nsaids Rash 05/17/2018 Contraindicated per administrative office assistant documented as of this encounter (statuses as of 04/18/2024) Medications Medication Sig Dispensed Refills Start Date End Date Status Glucose Blood (ONETOUCH VERIO) STRPIndications:Typ e 2 diabetes mellitus with hemoglobin A1c goal of less than 8.0% ([facility]) Use up to 4 times [...] mitral valve regurgitation,Coron daniel artery disease involving algaaciq coronary artery of algaaciq heart without angina pectoris,Stage 3b chronic kidney [...] knees 03/21/2018 Coronary artery disease invo lving algaaciq coronary [...] scanned document from 11/13/[address] [place], [facility] [place]. Coronary artery [...] mRNA, LNP-s, No Pre serve, 2-Dose Series ([employer]) 11/03/2021,12/19/2020,11/28/2020 Covid-19 Ad26, Single Dose (Soy/J&J) 12/19/2020,11/28/2020 [...] [facility] Telephonic Nurse Follow-Up Call [facility] Subprogram: Primary Care at Home Follow [...] 28.12 kg/m2 29.45 kg/m2 Remote Patient Monitoring: [facility] Scale: Unsure if weight is accurate this [...] breakfast prior toweighing self. Spouse will pickling tank operator Keflex today at pharmacy and have patient start today. Aware of appointment tomorrow with [facility] RNCM at 11am for labs and assessment. Disposition: Routed to [facility] and/or [facility] Care Team for further advice and RNCM visit scheduled Future Visits Scheduled: Future Appointments-next 60 days Date/Time Provider Specialty Dept Phone 04/18/2024 11:30 AM Coordinator, Snehal Tafoya [facility] [phone] 04/19/2024 11:00 AM Peggy De RN [facility] [phone] 04/23/2024 7:15 AM [facility] Processing [phone] 05/08/2024 2:30 PM Meri Mae, Community Health Academic Physician; Berny Power PA-C [facility] [phone] 05/09/2024 7:00 AM [facility] Processing [phone] 05/23/2024 7:00 AM [facility] Processing [phone] 05/31/2024 10:00 AM Peggy De RN [facility] [phone] 06/06/2024 7:00 AM [facility] Processing [phone] 06/20/2024 7:00 AM [facility] Processing [phone] 07/04/2024 7:00 AM [facility] Processing [phone] 07/18/2024 7:00 AM [facility] Processing [phone] 08/01/2024 7:00 AM [facility] [phone] 08/13/2024 8:00 AM (Arrive by 7:45 AM) Dominick Benz, DO Cardiology [phone] 08/15/2024 7:00 AM [facility] Processing [phone] 08/29/2024 7:00 AM [facility] Processing [phone] 09/02/2024 1:45 PM (Arrive by 1:30 PM) Osvaldo iLu MD Dermatology [phone] 09/12/2024 7:00 AM [facility] Processing [phone] 09/17/2024 11:15 AM (Arrive by 11:00 AM) Kalpesh Funes MD Urology [phone] 09/26/2024 7:00 AM [facility] Processing [phone] 03/12/2025 3:30 PM Betina Jacob PA-C Family Medicine [phone] Esperanza Plummer, RN documented in this encounter Plan of Treatment Upcoming Encounters Date Type Department Care Team (Late st Contact Info) Description 04/19/2024 11:00 AM EDT Home Visit [facility], [facility] [address] [employer] [place] [address] Peggy De, RN 132 [facility] [place] [address] 04/23/2024 7:15 AM EDT Laboratory Lab Mobile Phlebotomy [facility] [address] [facility] [place] [address] [facility] Draw [address] [facility] [place] [address] 05/08/2024 2:30 PM EDT Telemedicine [facility], [facility] [address] [facility] [place] [address] Berny Power PA-C 132 [facility] [place] [address] Meri Mae, Community Health Academic Physician [address] [place] [address] 05/09/2024 7:00 AM EDT Laboratory Lab Mobile Phlebotomy [facility] [address] [employer] [place] [address] [facility] Draw [address] [employer] [place] [address] 05/23/2024 7:00 AM EDT Laboratory Lab Mobile Phlebotomy [facility] [address] [employer] [place] [address] [facility] Draw [address] [place] [address] 05/31/2024 10:00 AM EDT Home Visit is[facility] at [facility] 132 [facility] [place] [address] Peggy De, RN [address] [place] [address] 06/06/2024 7:00 AM EDT Laboratory Lab Mobile Phlebotomy [facility] [address] [place] [address] [facility] Draw [address] [place] [address] 06/20/2024 7:00 AM EDT Laboratory Lab Mobile Phlebotomy [facility] [address] [place] [address] [facility] Draw [address] [place] [address] 07/04/2024 7:00 AM EDT Laboratory Lab Mobile Phlebotomy [facility] [address] [place] [address] [facility] Draw [address] [place] [address] 07/18/2024 7:00 AM EDT Laboratory Lab Mobile Phlebotomy [facility] [address] [place] [address] [facility] Draw [address] [place] [address] 08/01/2024 7:00 AM EDT Laboratory Lab Mobile Phlebotomy [facility] [address] [place] [address] [facility] Draw [address] [place] [address] 08/13/2024 8:00 AM EDT Office Visit Cardiology, [facility] [address] [place] [address] Dominick Benz, DO [address] [place] [address] 08/15/2024 7:00 AM EDT Laboratory Lab Mobile Phlebotomy [facility] [address] [facility] [place], [place] [address] [facility] Draw [address] [facility] [place] [address] 08/29/2024 7:00 AM EST Laboratory Lab Mobile Phlebotomy [facility] [address] [place] [address] [facility] Draw [address] [facility] [place] [address] 08/29/2024 8:00 AM EST Hospital Encounter ENDO [facility], Endoscopy Room [facility] [address] [place] [id number] Arnie Shrestha MD [address] [place] [address] 08/29/2024 8:00 AM EST - 08/29/2024 8:30 AM EST Surgery ENDO [facility], Endoscopy Room [facility] [address] [place] [phone] Arnie Shrestha MD [address] [place] [address] COLONOSCOPY FLEXIBLE PROXIMAL DIAGNOSTIC 09/02/2024 1:45 PM EST Office Visit Dermatology [facility] [address] [place] [address] Osvaldo Liu MD [address] [place] [address] 09/12/2024 7:00 AM EST Laboratory Lab Mobile Phlebotomy [facility] [address] [facility] [place] [address] [facility] Draw [address] [facility] [place], [place] [address] 09/17/2024 11:15 AM EST Office Visit Urology, [facility] [address] [place] [address] Kalpesh Funes MD 27 [place] [address] 09/26/2024 7:00 AM EST Laboratory Lab Mobile Phlebotomy [facility] [address] [place] [employer] [place] [address] [facility] Draw [address] [employer] [place] [address] 03/12/2025 3:30 PM EDT Home Visit Care at Home [address] [place] [address] Betina Jacob PA-C [address] [place], [place] [id number] Scheduled Procedures Name Priority Associated Diagnoses Date/Ti [...] 11/01/2022, Additional history exists Albumin/Creatinine Ratio 12/27/2023 032 023, 03/08/2019, 04/09/2014 GFR 10/15/2024 04/15/2024, 06/0 03/2024, 05/04/2023, Additional history exists CKD PHOS USE SMARTSET 34510 12/07/2024 02/02/2024, 12/26/2022, 06/21/2021 Depression Screening 03/07/2025 03/07/2024 CKD HGB USE SMARTSET 71689 04/15/202504/15, 04/15/2024, 04/12/2024, Additional history exists Colonoscopy [...] this encounter Medical Devices Implanted Type Area Utility Locate Technician Device Identifier Shelf Expiration Date Model / Serial / Lot Lens Intraoc 22.5 - [id number] - [id number] Implanted:Qty: 1 on 05/22/2018 by Jasbir Maurer MD at OR [facility] Right: Eye [employer] 11/22/2022 [id number] / [id number] / [id number] Lens Intraoc 21.0 - [id number] - [id number] Implanted:Qty: 1 on 06/05/2018 by Jasbir Maurer MD at OR [facility] Left: Eye [employer] 12/20/2022 [id number] / [id number] / Duraclip 16mm Xlg Repostn - [id number] Implanted:Qty: 1 on 04/12/2024 by Edilberto Lujan MD at OR [facility] [employer] [id number] 12/08/2024 [id number] / / [id number] Duraclip 16mm Xlg Repostn - [id number] Implanted:Qty: 1 on 04/12/2024 by Edilberto Lujan MD at OR [facility] [employer] [id number] 12/08/2024 [id number] / / [id number] Duraclip 16mm Xlg Repostn - [id number] Implanted:Qty: 1 on 04/12/2024 by Edilberto Lujan MD at OR [facility] [employer] [id number] 12/08/2024 [id number] / / [id number] documented as of this encounter Advance Directives [...] Agents on File Name Relationship Healthcare Agent [facility] Communication Ashley Jose Spouse Health Care Power of Attor hines Care Teams Neonatal Critical Care Nurse Relationship Specialty Start Date End Date Michael Hinton MD 132 [place] [address] PCP - General Family Medicine 08/07/17 documented as of this encounter
--- OUTSIDE RECORDS SUMMARY | 2024-05-04 16:50 | External Medical Summary | Summary of Care ---
Author Name Unknown Organization [facility] Address [address] [place] [address] Phone [phone] Care Team Providers Care Green Energy Marketing Analyst Name Role Phone Michael Hinton MD Primary Care Provider [phone] Reason for Visit * Reason Comments Outpatient Testing Encounter Details Date Type Department Care Team (Late st Contact Info) Description 04/15/2024 2:00 PM EDT Laboratory Laboratory, [facility] [address] [place] [address] [facility] [address] [facility] [place] [phone] History of cellulitis; Hypertensive 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) Allergies Active Allergy Reactions Criticality Noted Date Comments Fabiano Inhibitors Cough 06/09/2017 Carbidopa W-Levodopa 03/17/2021 Constipation Nsaids Rash 05/17/2018 Contraindicated per track repair person documented as of this encounter (statuses as [...] mitral valve regurgitation,Coron daniel 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y [...] mRNA, LNP-s, No Pre serve, 2-Dose Series ([employer]) 11/03/2021,12/19/2020,11/28/2020 Covid-19 Ad26, Single Dose ([employer]/J&J) 12/19/2020,11/28/2020 DTaP Dipth/Tet/Acell Pertussis (Infanrix), Peds 10/24/2019 [...] 2:00 PM EDT [facility] [address] [place] [address] Peggy De RN 132 [place] [address] 04/17/2024 9:30 AM EDT [facility] [address] [place] [address] Coordinator, [facility] [address] [place] [address] 04/23/2024 7:15 AM EDT Laboratory Lab Mobile Phlebotomy [facility] [address] [place] [address] [facility], [facility] Draw [address] [place] [address] 05/08/2024 2:30 PM EDT Telemedicine [facility], [facility] 132 [facility] [place], [place] [address] Berny Power PA-C [address] [place] [address] Meri Mae, [facility] [place] [address] [place] [address] 05/09/2024 7:00 AM EDT Laboratory Lab Mobile Phlebotomy [facility] [address] [place] [address] [address] [facility], [facility] Draw [address] [place] [address] [address] 05/23/2024 7:00 AM EDT Laboratory Lab Mobile Phlebotomy [facility] [address] [place] [address] [address] [facility], [facility] Draw [address] [place] [address] 05/31/2024 10:00 AM EDT Home Visit [facility], [facility] 132 [facility] [place] [address] Peggy De, RN [address] [place] [address] 06/06/2024 7:00 AM EDT Laboratory Lab Mobile Phlebotomy [facility] [address] [place] [address] [facility], [facility] Draw [address] [place] [address] [address] 06/20/2024 7:00 AM EDT Laboratory Lab Mobile Phlebotomy [facility] [address] [place] [address] [facility], [facility] Draw [address] [place] [address] 07/04/2024 7:00 AM EDT Laboratory Lab Mobile Phlebotomy [facility] [address] [facility] [place], [place] [address] [facility], [facility] Home Draw [address] [facility] [place], [place] [address] 07/18/2024 7:00 AM EDT Laboratory Lab Mobile Phlebotomy [facility] [address] [facility] [place], [place] [address] [facility], [facility] Draw [address] [facility] [place] [address] 08/01/2024 7:00 AM EDT Laboratory Lab Mobile Phlebotomy [facility] [address] [facility] [place], [place] [address] [facility], [facility] Draw [address] [facility] [place], [place] [address] 08/13/2024 8:00 AM EDT Office Visit Cardiology, [facility] [address] [place] [address] Dominick Benz DO [address] [place] [address] 08/15/2024 7:00 AM EDT Laboratory Lab Mobile Phlebotomy [facility] [address] [facility] [place], [place] [address] [facility], [facility] Draw [address] [facility] [place], [place] [address] 08/29/2024 7:00 AM EST Laboratory Lab Mobile Phlebotomy [facility] [address] [facility] [place] [address] [facility], [facility] Draw [address] [facility] [place] [address] 08/29/2024 8:00 AM EST Hospital Encounter ENDO [facility], Endoscopy Room [facility] [address] [place] [phone] Arnie Shrestha MD [address] [place] [address] 08/29/2024 8:00 AM EST - 08/29/2024 8:30 AM EST Surgery ENDO [facility], Endoscopy Room [facility] 132 [facility] [place] [phone] Arnie Shrestha MD 132 [facility] [place] [address] COLONOSCOPY FLEXIBLE PROXIMAL DIAGNOSTIC 09/02/2024 1:45 PM EST Office Visit Dermatology [facility] 200 [facility] [place] [address] Osvaldo Liu MD 200 [facility] [place] [address] 09/12/2024 7:00 AM EST Laboratory Lab Mobile Phlebotomy [facility] [address] [place] [address] [facility], [facility] Draw [address] [place] [address] 09/17/2024 11:15 AM EST Office Visit Urology, [facility] 132 [facility] [place] [address] Kalpesh Funes MD 27 [facility] [address] [place] [address] 09/26/2024 7:00 AM EST Laboratory Lab Mobile Phlebotomy [facility] [address] [place] [address] [facility], [facility] Mobile Home Draw [address] [place] [address] 03/12/2025 3:30 PM EDT Home Visit [facility] [address] [facility] [place] [address] Betina Jacob PA-C [address] [facility] [address] Pending Results Name Type Priority Associated Diagnoses Date /Time CBC WITH WBC DIFFERENTIAL Lab Routine History of cellulitis 04/15/2024 1:15 PM EDT BNP, NT-PRO Lab Routine Hypertensive 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) 04/15/2024 1:15 PM EDT CBC Lab Routine History of cellulitis 04/15/2024 1:15 PM EDT DIFFERENTIAL, AUTOMATED Lab Routine History of cellulitis 04/15/2024 1:15 PM EDT DIFFERENTIAL, TECHNOLOGIST REVIEW Lab Routine History of cellulitis 04/15/2024 1:15 PM EDT Scheduled Procedures Name Priority Associated [...] Additional history exists CKD PHOS USE SMARTSET 07646 12/07/202411/23, 12/26/2022, 06/21/2021 Depression Screening 03/07/2025 03/07/2024 CKD HGB USE SMARTSET 83976 04/12/202504/12, 04/11/2024, 04/11/2024, Additional history exists Colonoscopy 10/18/2026 10/18/2023, 09/23, [...] this encounter Medical Devices Implanted Type Area Enterprise Project Manager Device Identifier Shelf Expiration Date Model / Serial / Lot Lens Intraoc 22.5 - [id number] - [id number] Implanted:Qty: 1 on 05/22/2018 by Jasbir Maurer MD at OR [facility] Right: Eye [employer] 11/22/2022 [id number] / [id number] / [id number] Lens Intraoc 21.0 - [id number] - [id number] Implanted:Qty: 1 on 06/05/2018 by Jasbir Maruer MD at OR [facility] Left: Eye [employer] 12/20/2022 [id number] / [id number] / Duraclip 16mm Xlg Repostn - [id number] Implanted:Qty: 1 on 04/12/2024 by Edilberto Lujan MD at OR [facility] [employer] [place] [id number] 12/08/2024 [id number] / / [id number] Duraclip 16mm Xlg Repostn - [id number] Implanted:Qty: 1 on 04/12/2024 by Edilberto Lujan MD at OR [facility] [employer] [id number] 12/08/2024 [id number] / / [id number] Duraclip 16mm Xlg Repostn - [id number] Implanted:Qty: 1 on 04/12/2024 by Edilberto Lujan MD at OR [facility] [employer] [facility] [id number] 12/08/2024 [id number] / / [id number] documented as of this encounter Procedures Procedure Name Priority Date/Time Associated Diagnosis Comments BASIC METABOLIC PANEL Routine 04/15/2024 1:15 PM EDT Hypertensive 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) documented in this encounter Results * (ABNORMAL) BASIC METABOLIC PANEL (04/15/2024 1:15 PM EDT) BUN 22(H) 6 - 20 mg/dL 04/15/2024 3:04 PM EDT [facility] [place] 57[facility]10 Creatinine 1.5(H) 0.6 - 1.2 mg/dL 04/15/2024 3:04 PM EDT [facility] [place] 57[facility]10 Estimated Glomerular Filtration Rate 48(L) >=60 mL/min 04/15/2024 3:04 PM EDT [facility] [place] 57-10 Comment:eGFR is calculated b ased on the CKD-EPI 2020 equation Sodium 140 135 - 146 mmol/L 04/15/2024 3:04 PM EDT [facility] [place] 57-10 Potassium 4.1 3.5 - 5.1 mmol/L 04/15/2024 3:04 PM EDT [facility] [place] 57[facility]10 Chloride 105 98 - 107 mmol/L 04/15/2024 3:04 PM EDT [facility] [place] 57-10 CO2 26 22 - 32 mmol/L 04/15/2024 3:04 PM EDT [facility] [place] 57-10 Anion Gap 9 7 - 15 mmol/L 04/15/2024 3:04 PM EDT [facility] [place] 57-10 Glucose 192(H) 70 - 120 mg/dL 04/15/2024 3:04 PM EDT [facility] [place] 57-10 Calcium 8.5 8.4 - 10.2 mg/dL 04/15/2024 3:04 PM EDT [facility] [place] 57-10 Blood Venous blood specimen / Unknown Venipuncture / Unknown 04/15/2024 1:15 PM EDT 04/15/2024 1:58 PM EDT Michael Briggs DO LAB BLOOD ORDERABLES LABORATORY [facility] [place] 57-10 [address] [place] [address] documented in this encounter Visit Diagnoses Diagnosis History of cellulitis Hypertensive 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) Special screening for malignant neoplasms, colon documented [...] Agents on File Name Relationship Healthcare Agent [facility] p Communication Ashley Jose Spouse Health Care Power of Attor mayela Care Teams Green Energy Marketing Analyst Relationship Specialty Start Date End Date Michael Hinton MD [address] [place] [address] PCP - General Family Medicine 08/07/17 documented as of this encounter
--- OUTSIDE RECORDS SUMMARY | 2024-05-04 16:50 | External Medical Summary | Summary of Care ---
Author Name Unknown Organization [facility] Address [address] [place] [address] Phone [phone] Care Team Providers Care Meter And Regulator Shop Supervisor Name Role Phone Michael Hinton MD Primary Care Provider [phone] Reason for Visit * Reason Comments [facility]: Acute Encounter Details Date Type Department Care Team (Late st Contact Info) Description 04/17/2024 12:30 PM EDT [facility] Visit [facility], [facility] [address] [place] [address] Peggy De, RN [address] [place] [address] Allergies Active Allergy Reactions Criticality Noted Date Comments Fabiano Inhibitors Cough 06/09/2017 Carbidopa W-Levodopa 03/17/2021 Constipation Nsaids Rash 05/17/2018 Contraindicated per attraction attendant documented as of this encounter (statuses as of 04/17/2024) Medications Medication Sig Dispensed Refills Start Date End Date Status Glucose Blood (ONETOUCH VERIO) STRPIndications:Typ e 2 diabetes mellitus with hemoglobin A1c goal of less than 8.0% ([facility]) Use up to 4 times a [...] mitral valve regurgitation,Coron daniel artery disease involving [place] coronary artery of [place] heart without angina pectoris,Stage 3b chronic kidney [...] knees 03/21/2018 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y [...] mRNA, LNP-s, No Pre serve, 2-Dose Series ([employer]) 11/03/2021,12/19/2020,11/28/2020 Covid-19 Ad26, Single Dose (Soy/J&J) 12/19/2020,11/28/2020 [...] Reading Time Taken Comments Blood Pressure 140/68 04/17/2024 11:54 AM EDT Pulse 90 04/17/2024 11:54 AM EDT Temperature 37.6 C (99.6 F) 04/17/2024 11:54 AM E DT Respiratory Rate 18 04/17/2024 11:54 AM EDT Oxygen Saturation 98% 04/17/2024 11:54 AM EDT Inhaled Oxygen Concentration - - Weight 76.7 kg (169 lb) 04/17/2024 11:54 AM EDT Height - - Body Mass Index 28.12 04/09/2024 9:19 AM EDT documented in this encounter Progress Notes * Peggy De RN - 04/17/2024 11:23 AM EDT Images from the original note were not included. [facility] Veneer Lathe OperatorHl7 Developer Visit Date: 04/17/2024 Time: 11:23 AM Name: Jesus Jose : 1945 Current Concerns: Pt seen for acute f/u for chf exacerbation/cellulitis - increased edema, redness/weeping of BLE's Received IV Lasix 100mg on Monday and Rocephin 1gm IV Received Metolazone 2.5mg Monday, as well as IV 100mg Lasix and 2gm IV Rocephin Wt on Monday was 177 lbs and wt today was 169 lbs Lungs clear bilaterally Weeping of legs has improved Redness and edema has improved but not back to baseline BP 140/68 | Pulse 90 | Temp 37.6 C (99.6 F) | Resp 18 | Wt 76.7 kg (169 lb) | SpO2 98% | BMI 28.12 kg/m | BSA 1.88 m Per [facility]: IV Rocephin 2gram today Start Keflex tomorrow DTP of Torsemide 40mg today, tomorrow and Monday Labs on Monday Problems/Symptoms: Review of Systems Cardiovascular: Positive for leg swelling. Musculoskeletal: Positive for arthralgias and gait problem. Skin: Positive for wound. Neurological: Positive for weakness. Physical Exam: BP 140/68 | Pulse 90 | Temp 37.6 C (99.6 F) | Resp 18 | Wt 76.7 kg (169 lb) | SpO2 98% | BMI 28.12 kg/m | BSA 1.88 m Pain 0 Physical Exam Cardiovascular: Rate and Rhythm: Normal rate and regular rhythm. Pulses: Normal pulses. Heart sounds: Normal heart sounds. Pulmonary: Effort: Pulmonary effort is normal. Breath sounds: Normal breath sounds. Abdominal: General: Bowel sounds are normal. Palpations: Abdomen is soft. Skin: Findings: Erythema (LE's) present. Neurological: Mental Status: He is oriented to person, place, and time. [facility] Completed this Visit: Yes. [facility]: Reason Completed: Status post acute event/change in baseline [facility] Interventions: Fall education provided, reviewed/provided Fall brochure Treatment/Plan: IV Rocephin 2gram today Start Keflex tomorrow DTP of Torsemide 40mg today, tomorrow and Monday Labs on Monday 24 hr f/u call tomorrow [facility] to draw labs on Monday [facility] today for wound care Follow Low Na diet and 1800ml fluid restriction Elevate LE as much as possible Home Interventions Provided: IV Interventions: Antibiotic Home Intervention: Other; eval, initiate PO DTP Consulted PCP/Specialist Reinforced current Plan of Care, including self-management and medication regimen Patient's 'Red Flags': Wt gain of 3 lbs in 24 hrs or 5 lbs in one week Increased edema/redness/weeping BLE Increased SOB Patient Needs to Remember: Call [facility] at with any new or worsening [...] patient in 24 hrs. Peggy De RN 04/17/2024 11:23 AM documented in this encounter Plan of Treatment Upcoming Encounters Date Type Department Care Team (Late st Contact Info) Description 04/18/2024 11:30 AM EDT Scheduled Telephone [facility] at [place], [facility] 132 [facility] [place] [address] Coordinator, [facility] 132 [facility] [place] [address] 04/19/2024 11:00 AM EDT Home Visit [facility], [facility] 132 [facility] [place] [address] Peggy De, RN 132 [facility] [place] [address] 04/23/2024 7:15 AM EDT Laboratory Lab Mobile Phlebotomy [facility] [address] [facility], [place] [address] Mvmg, [facility] [address] [facility], [place] [address] 05/08/2024 2:30 PM EDT Telemedicine [facility] [place], [facility] 132 [facility] [place] [address] Berny Power PA-C 132 [facility] [place] [address] Meri Mae, Community Health Decorating Instructor [address] [place] [address] 05/09/2024 7:00 AM EDT Laboratory Lab Mobile Phlebotomy [facility] [address] [facility], [place] [address] Mvmg, [facility] [address] [facility], [place] [address] 05/23/2024 7:00 AM EDT Laboratory Lab [facility] Phlebotomy [facility] [address] [place] [address] Mvmg, [facility] Draw [address] [facility], [place] [address] 05/31/2024 10:00 AM EDT Home Visit [facility] [place], [facility] 132 [facility] [place] [address] Peggy De, RN 132 [facility] [place] [address] 06/06/2024 7:00 AM EDT Laboratory Lab Mobile Phlebotomy [facility] [address] [place] [address] Mvmg, Gml Mobile Home Draw [address] [facility] [place] [address] 06/20/2024 7:00 AM EDT Laboratory Lab Mobile Phlebotomy [facility] [address] [facility] [place] [place] [address] Mvmg, Gml Mobile [facility] Draw [address] [facility] [place] [place] [address] 07/04/2024 7:00 AM EDT Laboratory Lab Mobile Phlebotomy [facility] [address] [facility] [place] [place] [address] Mvmg, Gml Mobile [facility] Draw [address] [facility] [place] [address] 07/18/2024 7:00 AM EDT Laboratory Lab Mobile Phlebotomy [facility] [address] [facility] [place] [place] [address] Mvmg, Gml [facility] Draw [address] [place] [address] 08/01/2024 7:00 AM EDT Laboratory Lab Mobile Phlebotomy [facility] [address] [place] [address] Mvmg, Gml Mobile [facility] Draw [address] [place] [address] 08/13/2024 8:00 AM EDT Office Visit Cardiology, [facility] [address] [place] [address] Dominick Bnez, DO [address] [place] [address] 08/15/2024 7:00 AM EDT Laboratory Lab Mobile Phlebotomy [facility] [address] [facility] [place] [address] Mvmg, Gml Mobile Home Draw [address] [facility] [place] [address] 08/29/2024 7:00 AM EST Laboratory Lab Mobile Phlebotomy [facility] [address] [facility] [place], [place] [address] Mvmg, Gm Mobile Home Draw [address] [facility] [place] [address] 08/29/2024 8:00 AM EST Hospital Encounter ENDO OSSC, Endoscopy Room [facility] [address] [place] [phone] Arnie Shrestha MD [address] [place] [address] 08/29/2024 8:00 AM EST - 08/29/2024 8:30 AM EST Surgery ENDO O[facility]C, Endoscopy Room [facility] [address] [place] [phone] Arnie Shrestha MD [address] [place] [address] COLONOSCOPY FLEXIBLE PROXIMAL DIAGNOSTIC 09/02/2024 1:45 PM EST Office Visit Dermatology [facility] [address] [facility] [place], [place] [address] Osvaldo Liu MD [address] [facility] [place], [place] [address] 09/12/2024 7:00 AM EST Laboratory Lab Mobile Phlebotomy [facility] [address] [facility] [place], [place] [address] Mvmg, [facility] Mobile Home Draw [address] [facility] [place], [place] [address] 09/17/2024 11:15 AM EST Office Visit Urology, [facility] [address] [place] [address] Kalpesh Funes MD 27 [place] [address] 09/26/2024 7:00 AM EST Laboratory Lab Mobile Phlebotomy [facility] [address] [facility] [place] [address] Mvmg, Gml Mobile Home Draw [address] [facility] [place] [address] 03/12/2025 3:30 PM EDT Home Visit Care at Home [address] [place] [address] Betina Jacob PA-C [address], [place] [id number] Scheduled Procedures Name Priority Associated Diagnoses Date/Ti [...] Additional history exists CKD PHOS USE SMARTSET 58687 12/07/202411/23, 12/26/2022, 06/21/2021 Depression Screening 03/07/2025 03/07/2024 CKD HGB USE SMARTSET 66059 04/15/202504/15, 04/15/2024, 04/12/2024, Additional history exists Colonoscopy [...] this encounter Medical Devices Implanted Type Area [employer] Lead Device Identifier Shelf Expiration Date Model / Serial / Lot Lens Intraoc 22.5 - [id number] - [id number] Implanted:Qty: 1 on 05/22/2018 by Jasbir Maurer MD at OR [facility] Right: Eye BAUSCH [employer] LOMB 11/22/2022 [id number] / [id number] / [id number] Lens Intraoc 21.0 - [id number] - [id number] Implanted:Qty: 1 on 06/05/2018 by Jasbir Maurer MD at OR [facility] Left: Eye BAUSCH [employer] LOMB 12/20/2022 [id number] / [id number] / Duraclip 16mm Xlg Repostn - [id number] Implanted:Qty: 1 on 04/12/2024 by Edilberto Lujan MD at OR [facility] damntheradio [id number] 12/08/2024 [id number] / / [id number] Duraclip 16mm Xlg Repostn - [id number] Implanted:Qty: 1 on 04/12/2024 by Edilberto Lujan MD at OR [facility] damntheradio [id number] 12/08/2024 [id number] / / [id number] Duraclip 16mm Xlg Repostn - [id number] Implanted:Qty: 1 on 04/12/2024 by Edilberto Lujan MD at OR [facility] damntheradio [id number] 12/08/2024 [id number] / / [id number] documented as of this encounter Administered Medications Inactive Administered Medications - up to 3 most recent administrations Medication Order MAR Action Action Date Dose Rate Site cefTRIAXone (Rocephin) inj 2 g 2 g, IV Push, ONCE, On Mon04/17/24 at 1300, For 1 dose Given 04/17/2024 1:04 PM EDT 2 g Antecubital Right documented in this encounter Advance [...] Agents on File Name Relationship Healthcare Agent [employer] Communication Ashley Fantasma Jose Spouse Health Care Power of Attor leawood Care Teams Meter And Regulator Shop Supervisor Relationship Specialty Start Date End Date Michael Hinton MD [address] [place] [address] PCP - General Family Medicine 08/07/17 documented as of this encounter
--- OUTSIDE RECORDS SUMMARY | 2024-05-04 16:50 | External Medical Summary | Summary of Care ---
Author Name Unknown Organization [facility] Address [address] [facility] [address] Phone [phone] Care Team Providers Care Automatic Washer Mechanic Name Role Phone Michael Hinton MD Primary Care Provider [phone] Reason for Visit * Reason Onset Date Comments [facility]: Maintenance 04/17/2024 Encounter Details Date Type Department Care Team (Late st Contact Info) Description 04/17/2024 Telephone [facility], [facility] 132 [facility] [place] [address] [facility], Nurse [facility] 132 [place] [address] [facility]: Maintenance Allergies Active Allergy Reactions Criticality Noted Date Comments Fabiano Inhibitors Cough 06/09/2017 Carbidopa W-Levodopa 03/17/2021 Constipation Nsaids Rash 05/17/2018 Contraindicated per hot roller documented as of this encounter (statuses as of 04/17/2024) Medications Medication Sig Dispensed Refills Start Date End Date Status Glucose Blood (ONETOUCH VERIO) STRPIndications:Typ e 2 diabetes mellitus with hemoglobin A1c goal of less than 8.0% ([facility]) Use up to 4 times a [...] mitral valve regurgitation,Coron daniel artery disease involving [place] coronary artery of [place] heart without angina pectoris,Stage 3b chronic kidney [...] 03/21/2018 Coronary artery disease invo lving [place] [...] scanned document from 11/13/[address] [facility]. Coronary artery disease due [...] mRNA, LNP-s, No Pre serve, 2-Dose Series ([employer]) 11/03/2021,12/19/2020,11/28/2020 Covid-19 Ad26, Single Dose (Soy/J&J) 12/19/2020,11/28/2020 [...] Telephone Encounter - Esperanza Plummer RN - 04/17/2024 2:47 PM EDT Phone call from spouse wanting to know if [facility] can order her husbands wound care supplies. Spoke with Wilfredo nurse with [facility] and the spouse just needs the phone number for [facility] as she threw away the previous re-order documentation. Phone number to [facility] provided. NIKI Bower Automatic I Threading Machine Feeder [facility] documented in this encounter Plan of Treatment Upcoming Encounters Date Type Department Care Team (Late st Contact Info) Description 04/18/2024 11:30 AM EDT Scheduled Telephone [facility], [facility] 132 [place] [address] Coordinator, [facility] [address] [place] [address] 04/19/2024 11:00 AM EDT Home Visit [facility], [facility] [address] [place] [address] Peggy De RN 132 [place] [address] 04/23/2024 7:15 AM EDT Laboratory Lab Mobile Phlebotomy [facility] [address] [place] [address] Mvmg, Gml Mobile Home Draw [address] [facility] [place] [address] 05/08/2024 2:30 PM EDT Telemedicine [facility], [facility] [address] [place] [address] Berny Power PA-C 132 [place] [address] Meri Mae, Community Health Director Telecommunications [address] [place] [address] 05/09/2024 7:00 AM EDT Laboratory Lab Mobile Phlebotomy [facility] [address] [place] [place] [address] Mvmg, Gml Mobile Home Draw 25[address] [facility] [place] [address] 05/23/2024 7:00 AM EDT Laboratory Lab Mobile Phlebotomy [facility] [address] [place] [address] Mvmg, Gml Mobile Home Draw [address] [facility] [place] [address] 05/31/2024 10:00 AM EDT Home Visit [facility] [place] [address] Peggy De RN [address] [place] [address] 06/06/2024 7:00 AM EDT Laboratory Lab Mobile Phlebotomy [facility] [address] [place] [address] [address] Mvmg, Gml Mobile Home Draw [address] [place] [address] 06/20/2024 7:00 AM EDT Laboratory Lab Mobile Phlebotomy [facility] [address] [place] [address] Mvmg, Gml Mobile Home Draw [address] [facility] [place], [place] [address] 07/04/2024 7:00 AM EDT Laboratory Lab Mobile Phlebotomy [facility] [address] [place] [address] Mvmg, Gml Mobile Home Draw [address], [place] [address] 07/18/2024 7:00 AM EDT Laboratory Lab Mobile Phlebotomy [facility] [address] [facility] [place] [address] Mvmg, Gml Mobile Home Draw [address] [facility] [place], [place] [address] 08/01/2024 7:00 AM EDT Laboratory Lab Mobile Phlebotomy [facility] [address] [facility] [place], [place] [address] Mvmg, Gml Mobile Home Draw [address] [facility] [place], [place] [address] 08/13/2024 8:00 AM EDT Office Visit Cardiology, [facility] [address] [place] [address] Dominick Benz DO [address] [place] [address] 08/15/2024 7:00 AM EDT Laboratory Lab Mobile Phlebotomy [facility] [address] [facility] [place], [place] [address] Mvmg, Gml Mobile Home Draw [address] [facility] [place] [address] 08/29/2024 7:00 AM EST Laboratory Lab Mobile Phlebotomy [facility] [address] [facility] [place], [place] [address] Mvmg, Gml Mobile Home Draw [address] [facility] [place] [address] 08/29/2024 8:00 AM EST Hospital Encounter ENDO OSSC, Endoscopy Room [facility] [address] [place] [phone] Arnie Shrestha MD [address] [place] [address] 08/29/2024 8:00 AM EST - 08/29/2024 8:30 AM EST Surgery ENDO OSSC, Endoscopy Room [facility] [address] [place] [phone] Arnie Shrestha MD [address] [place] [address] COLONOSCOPY FLEXIBLE PROXIMAL DIAGNOSTIC 09/02/2024 1:45 PM EST Office Visit Dermatology [facility] 200 [facility] [place] [address] Osvaldo Liu MD 200 [facility] [place] [address] 09/12/2024 7:00 AM EST Laboratory Lab Mobile Phlebotomy [facility] [address] [place] [address] Mvmg, Gml Mobile Home Draw [address] [facility] [place] [address] 09/17/2024 11:15 AM EST Office Visit Urology, [facility] [address] [facility] [place] [address] Kalpesh Funes MD [address] [place] [address] 09/26/2024 7:00 AM EST Laboratory Lab Mobile Phlebotomy [facility] [address] [facility] [place] [address] Mvmg, [facility] Mobile Home Draw [address] [facility] [place] [address] 03/12/2025 3:30 PM EDT Home Visit Care at Home [address] [place] [address] Betnia Jacob PA-C [address] [place] [address] Scheduled Procedures Name Priority Associated Diagnoses Date/Ti [...] 12/27/2023 023, 03/08/2019, 04/09/2014 GFR 10/15/2024 04/15/2024, 06/03/2024, 05/04/2023, Additional history exists CKD PHOS USE SMARTSET 77913 12/07/202411/23, 12/26/2022, 06/21/2021 Depression Screening 03/07/2025 03/07/2024 CKD HGB USE SMARTSET 06829 04/15/202504/15, 04/15/2024, 04/12/2024, Additional history exists Colonoscopy [...] this encounter Medical Devices Implanted Type Area Blindstitch Hemmer Device Identifier Shelf Expiration Date Model / Serial / Lot Lens Intraoc 22.5 - [id number] - [id number] Implanted:Qty: 1 on 05/22/2018 by Jasbir Maurer MD at OR [facility] Right: Eye [employer] 11/22/2022 [id number] / [id number] / [id number] Lens Intraoc 21.0 - [id number] - [id number] Implanted:Qty: 1 on 06/05/2018 by Jasbir Maurer MD at OR [facility] Left: Eye BAUSCH [employer] LOMB 12/20/2022 [id number] / [id number] / Duraclip 16mm Xlg Repostn - [id number] Implanted:Qty: 1 on 04/12/2024 by Edilberto Lujan MD at OR [facility] CONMED NACHO [id number] 12/08/2024 [id number] / / [id number] Duraclip 16mm Xlg Repostn - [id number] Implanted:Qty: 1 on 04/12/2024 by Edilberto Lujan MD at OR [facility] CONMED NACHO [id number] 12/08/2024 [id number] / / [id number] Duraclip 16mm Xlg Repostn - [id number] Implanted:Qty: 1 on 04/12/2024 by Edilberto Lujan MD at OR [facility] CONMED NACHO [id number] 12/08/2024 [id number] / / [id number] documented as of this encounter Advance Directives [...] Agents on File Name Relationship [facility] Communication Ashley Jose Spouse Health Care Power of Attor mayela Care Teams Automatic Washer Mechanic Relationship Specialty Start Date End Date Michael Hinton MD [address] [place] [address] PCP - General Family Medicine 08/07/17 documented as of this encounter
--- OUTSIDE RECORDS SUMMARY | 2024-05-04 16:51 | External Medical Summary ---
Author Name Unknown Address Unknown Organization K0G:[facility] [place] [address] Laboratory Report Ordering Provider Test Date Status MEI BASSETT 04/15/2024 13:15:00 Final Observation Date Value Abnormality Reference (Units ) Status BUN 04/15/2024 13:15:00 22 Above high normal 6-20 (mg/dL) Final Creatinine 04/15/2024 13:15:00 1.5 Above high normal 0.6-1.2 (mg/dL) Final Glomerular filtration rate/1.73 sq M.predicted [Volume Rate/Area] in Serum, Plasma or Blood by Creatinine-based formula (CKD-EPI) 04/15/2024 13:15:00 48 Below low normal >=60 (mL/min) Final eGFR is calculated based on the CKD-EPI 2020 equation Sodium 04/15/2024 13:15:00 140 135-146 (m mol/L) Final Potassium 04/15/2024 13:15:00 4.1 3.5-5.1 (m mol/L) Final Cl 04/15/2024 13:15:00 105 98-107 (mm ol/L) Final CO2 04/15/2024 13:15:00 26 22-32 (mmo l/L) Final Anion gap 04/15/2024 13:15:00 9 7-15 (mmol /L) Final Glucose 04/15/2024 13:15:00 192 Above high normal 70 -120 (mg/dL) Final Calcium 04/15/2024 13:15:00 8.5 8.4-10.2 ( mg/dL) Final Performing Location [facility] [place] [address]
--- OUTSIDE RECORDS SUMMARY | 2024-05-04 16:51 | External Medical Summary | Summary of Care ---
Author Name Unknown Organization [facility] Address [address] [place] [address] Phone [phone] Care Team Providers Care [employer] Program Coordinator Name Role Phone Michael Hinton MD Primary Care Provider [phone] Reason for Visit * Reason Onset Date Comments [facility]: Maintenance 04/10/2024 Encounter Details Date Type Department Care Team (Late st Contact Info) Description 04/10/2024 Telephone [facility], [facility] [address] [facility] [place] [address] [facility], Nurse [facility] [address] [place] [facility] [place] [address] [facility]: Maintenance Allergies Active Allergy Reactions Criticality Noted Date Comments Fabiano Inhibitors Cough 06/09/2017 Carbidopa W-Levodopa 03/17/2021 Constipation Nsaids Rash 05/17/2018 Contraindicated per interior systems carpenter documented as of this encounter (statuses as of 04/10/2024) Medications Medication Sig Dispensed Refills Start Date [...] mitral valve regurgitation,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 180 Tablet 3 03/13/2024 Active Amantadine HCl 100 MG Oral Capsule (Symmetrel) Take 1 capsule (100 mg total) by mouth daily . 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 I'd encourage the care team who knows him best to consider whether or not daily weights are beneficial. I would not recommend any intervention based on today's weight and symptoms. Remind to keep legs elevated and follow low sodium diet. Dominick Clark MD, RUSTC, [facility], FAAFP Remote Medical Command ([facility]) [facility] Available on [email or web address] * Telephone Encounter - Kasey Lutz LPN - 04/10/2024 1:58 PM EDT Images from the original note were not included. [facility] Remote Patient Monitoring Able to contact patient: Trigger type: Abnormal reading(s): AMC (Advanced Monitored Caregiving): Scale: Trigger weight: 170.4 lbs; weight increased 7 lbs in 1 day(s) Trigger priority per AMC: high Patient takes diuretic medication: Yes, reviewed current diuretic use: Name of medication: torsemide Dose: 20 mg Frequency: daily Symptom review: Edema: + Diet Reviewed: Yes. Patient has had any foods high in sodium: No Fluid Intake Reviewed: Yes. Patient is on a fluid restriction: Yes, restriction amount in milliliters or liters: 2L Adherent to restriction: Yes Self-Management Plan Reviewed: Red Flags: SOB, weakness, increased edema, increased , increased sleeping during day Risk assignment recommendation: Moderate risk findings (check as applicable): [] Moderate trigger priority on AMC [] Confirmed tympanic equivalent temperature 100.4-101.9 F one hour post administration of antipyretic [] Weight gain of 2.1-4.9 lbs over 1-2 days [] Confirmed new sustained resting HR greater than 105 WITHOUT symptoms [] Weight gain of greater than [...] symptoms High risk findings (check as applicable): [x] High trigger priority on AMC [] Confirmed tympanic equivalent temperature greater than or equalto 102 F on hour post administration of antipyretic [] Weight gain of greater than or equal to 5 lbs over 1-2 days [] Confirmed tympanic equivalent temperature less than 96 F [x] Weight gain of greater than or equal to 5 lbs in 5 days WITH heart failure symptoms [] Confirmed new sustained resting HR greater than 105 WITH symptoms [] Severe heart failure symptoms [] Confirmed new sustained resting HR less than 60 WITH symptoms [] Severe COPD symptoms [] Confirmed SBP less than 90 WITH symptoms [] Confirmed new SpO2 less than 90% [] Confirmed SBP greater than 170 WITH symptoms [] Confirmed DBP greater than 90 WITH symptoms Additional risk selection justification: Spoke with pt's daughter denies increased SOB, - abdominalfullness. Pt does have increased swelling RLE. Wound care currently at home for visit for BLE. Per daughter pt is unsteady on scale and often has to hold onto something. Todays wt done at 12:40pm. Pthas been sitting outside more and not elevating legs. Encouraged to elevate legs throughout day. Ptis scheduled for procedure 04/12 was advised to only take BP medication and Monday. Will not be taking diuretic or Monday. Overall risk and identified plan: High risk: Route to RNCM (Registered Nurse Narrow Gauge Operator) and Advance Practitioner Route to [facility] (Remote Medical Coordinator) documented in this encounter Plan of Treatment Upcoming Encounters Date Type Department Care Team (Late st Contact Info) Description 04/11/2024 7:00 AM EDT Laboratory Lab Mobile Phlebotomy [facility] [address] [facility] [place] [address] [facility], Gml Mobile Home Draw [address] [facility] [place] [address] 04/12/2024 8:38 AM EDT Hospital Encounter OR [facility], Operating Room, [facility] - 4th Floor [address] [place] [address] Edilberto Lujan MD [address] [place] [address] 04/12/2024 8:38 AM EDT - 04/12/2024 9:40 AM EDT Surgery OR [facility], Operating Room, [facility] - 4th Floor [address] [place] [address] Edilberto Lujan MD [address] [place] [address] SMALL INTESTINE ENDOSCOPY DIAGNOSTIC 04/23/2024 7:15 AM EDT Laboratory Lab Mobile Phlebotomy [facility] [address] [place] [address] [facility], Gml Mobile Home Draw [address] [facility] [place] [address] 05/08/2024 2:30 PM EDT Telemedicine [facility] [employer], [facility] [address] [address] Berny Power PA-C [address] [place] [address] Meri Mae, [facility] Geotechnical Field Technician [address] [place] [address] 05/09/2024 7:00 AM EDT Laboratory Lab Mobile Phlebotomy [facility] [address] [facility] [place], [place] [address] M[facility], Gml Mobile Home Draw [address] [facility] [place], [place] [address] 05/23/2024 7:00 AM EDT Laboratory Lab Mobile Phlebotomy [facility] [address] [facility] [place] [address] [facility], Gml Mobile Home Draw [address] [facility] [place] [address] 05/31/2024 10:00 AM EDT [facility] Visit [facility] [address] [facility] [place] [address] Peggy De RN [address] [facility] [place] [address] 06/06/2024 7:00 AM EDT Laboratory Lab Mobile Phlebotomy [facility] [address] [facility] [place], [place] [address] Mvmg, Gml Mobile Home Draw [address] [facility] [place], [place] [address] 06/20/2024 7:00 AM EDT Laboratory Lab Mobile Phlebotomy [facility] [address] [facility] [place], [place] [address] Mvmg, Gml Mobile Home Draw [address] [employer] [place], [place] [address] 07/04/2024 7:00 AM EDT Laboratory Lab Mobile Phlebotomy [facility] [address] [facility] [place] [address] Mvmg, Gml Mobile Home Draw [address] [facility] [place] [address] 07/18/2024 7:00 AM EDT Laboratory Lab Mobile Phlebotomy [facility] [address] [facility] [place], [place] [address] Mvmg, Gml Mobile Home Draw [address] [facility] [place] [address] 08/01/2024 7:00 AM EDT Laboratory Lab Mobile Phlebotomy [facility] [address] [facility] [place], [place] [address] Mvmg, Gml Mobile Home Draw [address] [facility] [place] [address] 08/13/2024 8:00 AM EDT Office Visit Cardiology, [facility] [address] [place] [address] Dominick Benz DO [address] [place] [address] 08/15/2024 7:00 AM EDT Laboratory Lab Mobile Phlebotomy [facility] [address] [facility] [place] [address] Mvmg, Gml Mobile Home Draw [address] [facility] [place] [address] 08/29/2024 7:00 AM EST Laboratory Lab Mobile Phlebotomy [facility] [address] [facility] [place] [address] Mvmg, Gml Mobile Home Draw [address] [facility] [place] [address] 08/29/2024 8:00 AM EST Hospital Encounter ENDO OSS, Endoscopy Room [facility] [address] [place] [id number] Arnie Shrestha MD [address] [place] [address] 08/29/2024 8:00 AM EST - 08/29/2024 8:30 AM EST Surgery ENDO OSS, Endoscopy Room [facility] [address] [place] [id number] Arnie Shrestha MD [address] [place] [address] COLONOSCOPY FLEXIBLE PROXIMAL DIAGNOSTIC 09/02/2024 1:45 PM EST Office Visit Dermatology [facility] [address] [place] [address] Osvaldo Liu MD [address] [place], [place] [address] 09/12/2024 7:00 AM EST Laboratory Lab Mobile Phlebotomy [facility] [address] [facility] [place] [address] Mvmg, Gml Mobile Home Draw [address] [facility] [place] [address] 09/17/2024 11:15 AM EST Office Visit Urology, [facility] [address] [place] [id number] Kalpesh Funes MD [address] [facility] [address] [place] [address] 09/26/2024 7:00 AM EST Laboratory Lab Mobile Phlebotomy [facility] [address] [facility] [place] [address] Mvmg, Gml Mobile Home Draw [address] [facility] [place], [place] [address] 03/12/2025 3:30 PM EDT Home Visit Care at Home [address], [place] [id number] Betina Jacob PA-C [address], [place] [id number] Scheduled Procedures Name Priority Associated Diagnoses Date/Ti me SMALL INTESTINE ENDOSCOPY DIAGNOSTIC AVM (arteriovenous malformation) 04/12/2024 8:38 AM EDT COLONOSCOPY FLEXIBLE PROXIMAL DIAGNOSTIC Special screening for [...] Albumin/Creatinine Ratio 12/27/2023 023, 03/08/2019, 04/09/2014 GFR 09/27/2024 03/28/2024, 04/22, 04/04/2023, Additional history exists CKD PHOS USE SMARTSET 86251 12/07/202411/23, 12/26/2022, 06/21/2021 Depression Screening 03/07/2025 03/07/2024 CKD HGB USE SMARTSET 95174 03/28/202503/28, 03/28/2024, 03/14/2024, Additional history exists Colonoscopy 10/18/2026 10/18/2023, 09/23, [...] this encounter Medical Devices Implanted Type Area Financial Aid Administrator Device Identifier Shelf Expiration Date Model / Serial / Lot Lens Intraoc 22.5 - [id number] - [id number] Implanted:Qty: 1 on 05/22/2018 by Jasbir Maurer MD at OR [facility] Right: Eye [employer] 11/22/2022 [id number] / [id number] / [id number] Lens Intraoc 21.0 - [id number] - [id number] Implanted:Qty: 1 on 06/05/2018 by Jasbir Maurer MD at OR [facility] Left: Eye [employer] 12/20/2022 [id number] / [id number] / documented as of this encounter Advance [...] Care Power of Attor mayela Care Teams [employer] Program Coordinator Relationship Specialty Start Date End Date Michael Hinton MD [address] [place] [address] PCP - General Family Medicine 08/07/17 documented as of this encounter
--- OUTSIDE RECORDS SUMMARY | 2024-05-04 16:51 | External Medical Summary ---
Author Name Unknown Address Unknown Organization K01:LABORATORY [facility] - [address] [place] [address] Laboratory Report Ordering Provider Test Date Status MEI BASSETT 04/15/2024 13:15:00 Final Exclude Heart Failure: <300 pg/mL
Diagnose Heart Failure:
Age <50 yr: >450 pg/mL
50-75 yr: >900 pg/mL
>75 yr: >1800 pg/mL
GFR is 30-59 mL/min: >1200 pg/mL or Age- adjusted values
GFR <30 mL/min: do not use, not reliable

Prognostic threshold: 1000 pg/mL Observation Date Value Abnormality Reference (Units ) Status BNP, Pro-hormone 04/15/2024 13:15:00 3406 Above high no rmal <300 (pg/mL) Final Performing Location LAB[facility]ATORY [facility] - [address] [place] [address]
--- OUTSIDE RECORDS SUMMARY | 2024-05-04 16:51 | External Medical Summary ---
Author Name Unknown Address Unknown Organization K01:[facility] [place] [address] [place] [address] Laboratory Report Ordering Provider Test Date Status GUERRERO CHAUHAN 04/11/2024 09:55:00 Final Observation Date Value Abnormality Reference (Units ) Status Ferritin 04/11/2024 09:55:00 114 30-400 (ng /mL) Final Performing Location [facility] [place] [address] [facility] [place] [address]
--- OUTSIDE RECORDS SUMMARY | 2024-05-04 16:51 | External Medical Summary | Summary of Care ---
Author Name Unknown Organization [facility] Address [address] [place] [address] Phone [phone] Care Team Providers Care Service Clerk Name Role Phone Serjio Hinton MD Primary Care Provider [phone] Reason for Visit * Reason Onset Date Comments [facility]: Acute 04/15/2024 Encounter Details Date Type Department Care Team (Late st Contact Info) Description 04/15/2024 Telephone [facility], [address] [address] Meri Hernadez RN [address] [place] [address] [facility]: Acute Allergies Active Allergy Reactions Criticality Noted Date Comments Fabiano Inhibitors Cough 06/09/2017 Carbidopa W-Levodopa 03/17/2021 Constipation Nsaids Rash 05/17/2018 Contraindicated per metal reed tuner documented as of this encounter (statuses as [...] mitral valve regurgitation,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 180 Tablet 3 03/13/2024 Active Amantadine HCl 100 MG Oral Capsule (Symmetrel) Take 1 capsule (100 mg total) by mouth daily . 90 Capsule 03/19/2024 Active Hospital, Clinic, or Other Facility Administered Medication Ordered Dose Route Frequency Start Date End Date Status Furosemide (Lasix) inj 100 mgIndications:Hyper tensive 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) 100 mg IV PUSH ONCE 04/15/2024 04/16/2024 Active cefTRIAXone (Rocephin) inj 1 gIndications:Histor y of cellulitis 1 g IV PUSH ONCE 04/15/2024 04/16/2024 Active cefTRIAXone (Rocephin) inj 1 gIndications:Histor y of cellulitis 1 g IM ONCE 04/15/2024 04/15/2024 Discontin ued documented as of this encounter (statuses as [...] 07/28/2021 Last Assessment & Plan: Follows with [facility] hematology Routine labs monitored by hem/onc [...] knees 03/21/2018 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 03/21/2018 Last Assessment [...] mRNA, LNP-s, No Pre serve, 2-Dose Series (ecoVent) 11/03/2021,12/19/2020,11/28/2020 Covid-19 Ad26, Single Dose (Peer.im/J&J) 12/19/2020,11/28/2020 DTaP Dipth/Tet/Acell Pertussis (Infanrix), Peds 10/24/2019 [...] encounter Miscellaneous Notes * Addendum Note - Serjio Briggs DO - 04/15/2024 12:11 PM EDTAddended by: SERJIO BRIGGS on: 04/15/2024 12:11 PM Modules accepted: Orders * Telephone Encounter - Serjio Briggs DO - 04/15/2024 12:09 PM EDT [facility] Eugenio Valdez Subprogram: [facility] at Home Recommendations: I anticipate based on hx that he will need both Antibiotics and IV Lasix along with labs - empiric orders placed. He may need continuous RPM as well for closer monitoring Orders: Plan CBC with WBC Differential BNP, NT-PRO Basic Metabolic Panel Furosemide (Lasix) inj 100 mg cefTRIAXone (Rocephin) inj 1 g To Do: Please see below for follow up items to be completed and correspondence: NA EAGLEI to Jesus's Care Team Agree with advice given and plan of care. No further action needed. Routed to sender as an FYI thatmessage was addressed. Serjio Briggs DO [facility] - [facility] 04/15/2024 Scheduled appointments in the next 60 days: Future Appointments-next 60 days Date/Time Provider Specialty Dept Phone 04/15/2024 12:30 PM Peggy De RN [facility] [phone] 04/16/2024 10:00 AM Coordinator, José Miguel Giuliano Tafoya [facility] [phone] 04/17/2024 9:30 AM Coordinator, [facility] [phone] 04/23/2024 7:15 AM [facility] Processing [phone] 05/08/2024 2:30 PM Meri Mae, [facility] Burr Grinder; Berny Power PA-C [facility] [phone] 05/09/2024 7:00 AM [facility] Processing [phone] 05/23/2024 7:00 AM [facility] Processing [phone] 05/31/2024 10:00 AM Peggy De RN [facility] [phone] 06/06/2024 7:00 AM [facility] Processing [phone] 06/20/2024 7:00 AM [facility] [phone] 07/04/2024 7:00 AM [facility] Processing [phone] 07/18/2024 7:00 AM [facility] Processing [phone] 08/01/2024 7:00 AM [facility] [phone] 08/13/2024 8:00 AM (Arrive by 7:45 AM) Dominick Benz DO Cardiology [phone] 08/15/2024 7:00 AM [facility] [phone] 08/29/2024 7:00 AM [facility] [phone] 09/02/2024 1:45 PM (Arrive by 1:30 PM) Osvaldo Liu MD Dermatology [phone] 09/12/2024 7:00 AM [facility] Processing [phone] 09/17/2024 11:15 AM (Arrive by 11:00 AM) Kalpesh Funes MD Urology [phone] 09/26/2024 7:00 AM [facility] Processing [phone] 03/12/2025 3:30 PM Betina Jacob PA-C [facility] [phone] * Telephone Encounter - Meri Hernadez RN - 04/15/2024 9:54 AM EDT Images from the original note were not included. [facility] java developer Acute Call Date: 04/15/2024 Time: 9:54 AM Name: Jesus Jose : 1945 Caller: Ashley, Relationship to Chief Complaint Patient presents with [facility]: Acute Communication Note Name: Jesus Jose Situation: HPI: Jesus Jose is a 79 year old male whose is calling [facility] to report legs are seeping "worse than I've every seen and very red." Background: Pt with hx of HF, venous insufficiency, recurrent cellulitis with open wounds on RLE which were doing well, but reports that patient had a procedure to cauterize 3 areas in his colonand starting the following morning had increased swelling in his legs. Was worse yesterday and today even more swelling with redness bilaterally and legs seeping large amounts of fluid. Had been getting home health for wound care which included areas cleansed with NSS, applyaquacel ag, gauze and kerlix, secured with coban and tubigrips applied following. Finished keflex for cellulitis 04/03/24. Last recorded weight in [facility] 04/10 was 170.4 lbs. This morning, 177.0 lbs. 168 lbs is dry weight listed in [facility]. Had been running 162-167 lbs in last few weeks Assessment: Patient with increased sob at rest and with activity. Does not have pulse ox available at time of call. Denies chest pain Wearing his oxygen continuously at 2LPM. Usually only wears at 2LPM at when sleeping. Denies fever/chills Does not currently having any compression on. Tubigrips, coban removed due to being soaked with drainage. Increased urination noted by . Pt unable to hold urine. Has been incontinent the past couple ofdays. Denies painful urination, flank pain, hematuria. States "when he has to go, it's right now" Both legs red, warm from ankles to just below knees. Legs painful when bearing weight. Rates 6-7/10-tight pinching pain Drainage is clear yellow fluid coming from both legs. Denies eating higher sodium foods or excess fluid intake over the weekend. Confirmed pt is taking his meds according to Epic list including the Torsemide 20mg 1 tab daily in am. Pt does have DTP on file;however, concerned he is going to end up in ED with sob. Pt to take additional torsemide this morning per DTP. Recommending acute RNCM visit today for possible acute intervention. Recommendation: Routing to care team/[facility] for further recommendations Acute home visit today with RNCM Continue daily wts when steady enough to stand safely on scale. Fluids <2 L per 24 hours Compression to BLEs : on in am, off at HS Elevate BLEs when sitting as high as tolerated Low sodium diet 24,48hr follow up calls. Baseline Assessment Able to performing ADLs at baseline (walking, daily tasks, etc.): No Chief Complaint is related to a chronic condition: Yes Chronic Condition: HF and venous insufficiency Chief Complaint is a change in baseline: Yes, increased swelling, redness, pain, drainage. Patient prescribed oxygen? Yes, 2L/min Patient has been ordered DME equipment (assistive devices, respiratory equipment, etc.): No Medication Reconciliation: (See medication list) Received flu shot this season: Unknown Taking medication as ordered: Yes Medications ordered/taking to treat reason for call: Yes, PRN medication(s) DTP Heart failure symptoms: Yes Is Diuretic Titration Protocol (DTP) ordered? Yes Describe Diuretic Titration Protocol (DTP): double torsemide x 3 days Diuretic Titration Protocol (DTP) activated: yes COPD exacerbation symptoms: No Reinforcement Education: Reviewed HF symptom monitoring: -Weigh self daily [...] if at night -increased fatigue or vertigo Treatment/Plan: (need to report) Level of call: Acute Appointment scheduled for same day: Yes Log Getter Provider Name: Peggy De RN Treatment plan until appointment: take extra Torsemide 20mg per DTP Call back instructions provided to patient. documented in this encounter Plan of Treatment Upcoming Encounters Date Type Department Care Team (Late st Contact Info) Description 04/15/2024 12:30 PM EDT [facility] Visit [facility] [address] [address] Peggy De RN [address] [address] 04/16/2024 10:00 AM EDT Scheduled Telephone [facility], [facility] [address] [address] Coordinator, [facility] [address] [address] 04/17/2024 9:30 AM EDT Scheduled Telephone [facility] [place], [facility] [address] [address] Coordinator, [facility] [address] [place] [address] 04/23/2024 7:15 AM EDT Laboratory Lab Mobile Phlebotomy [facility] [address] [place] [place] [place] [address] [facility] [address] [facility] [place] [address] 05/08/2024 2:30 PM EDT Telemedicine [facility], [facility] [address] [address] Berny Power PA-C [address] [address] Meri Mae, Community Health Burr Grinder [address] [place] [address] 05/09/2024 7:00 AM EDT Laboratory [facility]bot[facility] [address] [facility] [place] [address] [facility] [address] [facility] [place] [address] 05/23/2024 7:00 AM EDT Laboratory Lab [facility] Phlebotomy [facility] [address] [facility] [place] [address] [facility] [address] [facility] [place] [address] 05/31/2024 10:00 AM EDT Home Visit [facility], [facility] [address] [place] [address] Peggy De, RN [address] [place] [address] 06/06/2024 7:00 AM EDT Laboratory [facility]bot[facility] [address] [facility] [place] [address] [facility] Draw [address] [place] [address] 06/20/2024 7:00 AM EDT Laboratory Lab Mobile Phlebotomy [facility] [address] [place] [address] [facility] Draw [address] [facility] [place] [address] 07/04/2024 7:00 AM EDT Laboratory Lab Mobile Phlebotomy [facility] [address] [place] [address] [facility] Draw [address] [place] [place] [address] 07/18/2024 7:00 AM EDT Laboratory Lab Mobile Phlebotomy [facility] [address] [place] [address] [facility] Draw [address] [place] [place] [address] 08/01/2024 7:00 AM EDT Laboratory Lab Mobile Phlebotomy [facility] [address] [place] [address] [facility] Draw [address] [place] [place] [address] 08/13/2024 8:00 AM EDT Office Visit Cardiology, [facility] [address] [place] [place] [address] Dominick Benz, [address] [place] [address] 08/15/2024 7:00 AM EDT Laboratory Lab Mobile Phlebotomy [facility] [address] [place] [address] [facility] Draw [address] [facility] [place] [address] 08/29/2024 7:00 AM EST Laboratory Lab Mobile Phlebotomy [facility] [address] [place] [address] [facility] Draw [address] [facility] [place] [address] 08/29/2024 8:00 AM EST Hospital Encounter ENDO OSSC, Endoscopy Room [facility] [address] [place] [id number] Arnie Shrestha MD [address] [place] [address] 08/29/2024 8:00 AM EST - 08/29/2024 8:30 AM EST Surgery ENDO OSSC, Endoscopy Room [facility] [address] [place] [phone] Arnie Shrestha MD [address] [place] [address] COLONOSCOPY FLEXIBLE PROXIMAL DIAGNOSTIC 09/02/2024 1:45 PM EST Office Visit Dermatology [facility] [address] [facility] [place] [address] Osvaldo Liu MD [address] [facility] [place] [address] 09/12/2024 7:00 AM EST Laboratory Lab Mobile Phlebotomy [facility] [address] [facility] [place] [address] [facility] Draw [address] [facility] [place] [address] 09/17/2024 11:15 AM EST Office Visit Urology, [facility] [address] [place] [place] [address] Kalpesh Funes MD [address] [address] [place] [address] 09/26/2024 7:00 AM EST Laboratory Lab Mobile Phlebotomy [facility] [address] [employer] [place] [address] [facility] Draw [address] [facility] [place] [address] 03/12/2025 3:30 PM EDT Home Visit Care at Home [address] [facility] [place] [address] Betina Jacob PA-C [address] 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) Expected: 04/15/2024 (Approximate), Expires: 04/15/2025 BASIC METABOLIC PANEL Lab Routine Hypertensive 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) Expected: 04/15/2024 (Approximate), Expires: 04/15/2025 Scheduled Procedures Name Priority Associated Diagnoses Date/Ti [...] 11/01/2022, Additional history exists Albumin/Creatinine Ratio 12/27/2023 03 023, 03/08/2019, 04/09/2014 GFR 09/27/2024 03/28/2024, 04/22, 04/04/2023, Additional history exists CKD PHOS USE SMARTSET 62399 12/07/202411/23, 12/26/2022, 06/21/2021 Depression Screening 03/07/2025 03/07/2024 CKD HGB USE SMARTSET 14519 04/12/202504/12, 04/11/2024, 04/11/2024, Additional history exists Colonoscopy [...] encounter Medical Devices Implanted Type Area Teacher Associate Device Identifier Shelf Expiration Date Model / Serial / Lot Lens Intraoc 22.5 - [id number] - [id number] Implanted:Qty: 1 on 05/22/2018 by Jasbir Maurer MD at OR [facility] Right: Eye [employer] 11/22/2022 [id number] / [id number] / [id number] Lens Intraoc 21.0 - [id number] - [id number] Implanted:Qty: 1 on 06/05/2018 by Jasbir Maurer MD at OR [facility] Left: Eye [employer] 12/20/2022 [id number] / [id number] / Duraclip 16mm Xlg Repostn - [id number] Implanted:Qty: 1 on 04/12/2024 by Edilberto Lujan MD at OR [facility] SSEV [id number] 12/08/2024 [id number] / / [id number] Duraclip 16mm Xlg Repostn - [id number] Implanted:Qty: 1 on 04/12/2024 by Edilberto Lujan MD at OR [facility] SSEV [id number] 12/08/2024 [id number] / / [id number] Duraclip 16mm Xlg Repostn - [id number] Implanted:Qty: 1 on 04/12/2024 by Edilberto Lujan MD at OR [facility] [employer] [id number] 12/08/2024 [id number] / / [id number] documented as of this encounter Visit Diagnoses [...] Jose Spouse Health Care Power of Attor rickman Care Teams Service Clerk Relationship Specialty Start Date End Date Serjio Hinton MD [address] [address] PCP - General Family Medicine 08/07/17 documented as of this encounter
--- OUTSIDE RECORDS SUMMARY | 2024-05-04 16:51 | External Medical Summary ---
Author Name Unknown Address Unknown Organization [id number]:LABORATORY [facility] - [address] [address] Laboratory Report Ordering Provider Test Date Status EH OLIVA 04/12/2024 08:12:00 Final Observation Date Value Abnormality Reference (Units ) Status WBC, Total 04/12/2024 08:12:00 3.28 Below low normal 4.00-10.80 (K/uL) Final RBC 04/12/2024 08:12:00 2.18 4.50-5.25 (M/uL) Final Hemoglobin 04/12/2024 08:12:00 7.2 Below low normal 14.0-16.8 (g/dL) Final HCT 04/12/2024 08:12:00 23.0 Below low normal 40.0-48.4 (%) Final MCV 04/12/2024 08:12:00 105.5 82.0-99.5 (fL) Final MCH 04/12/2024 08:12:00 33.0 27.0-34.0 (pg) Final MCHC 04/12/2024 08:12:00 31.3 32.0-36.0 (g/dL) Final RDW 04/12/2024 08:12:00 16.8 11.5-15.5 (%) Final Platelets 04/12/2024 08:12:00 108 Below low normal 140-400 (K/uL) Final MPV 04/12/2024 08:12:00 9.1 6.6-11.1 (fL) Final Nucleated erythrocytes/100 leukocytes [Ratio] in Blood by Automated count 04/12/2024 08:12:00 0 <=0 (/100 WBCs) Final Performing Location LAB[facility]ATORY [facility] - [address] [address]
--- OUTSIDE RECORDS SUMMARY | 2024-05-04 16:51 | External Medical Summary ---
Author Name Unknown Address Unknown Organization K0G[facility] [address] [place], [place] [address] Laboratory Report Ordering Provider Test Date Status MEI BASSETT 04/15/2024 13:15:00 Final Results rechecked.

Called [facility] nurse/Peggy @15:12. She stated patient was drawn peripherally. Patient did receive units of blood (412mL) Observation Date Value Abnormality Reference (Units ) Status WBC, Total 04/15/2024 13:15:00 2.22 Below low normal 4. 00-10.80 (K/uL) Final RBC 04/15/2024 13:15:00 4.45 4.50-5.25 (M/uL) Final Results rechecked.
null Hemoglobin 04/15/2024 13:15:00 14.3 14.0-16.8 (g/dL) Final Results rechecked.
null HCT 04/15/2024 13:15:00 45.0 40.0-48.4 (%) Final Results rechecked.
null MCV 04/15/2024 13:15:00 101.1 82.0-99.5 (fL) Final MCH 04/15/2024 13:15:00 32.1 27.0-34.0 (pg) Final MCHC 04/15/2024 13:15:00 31.8 32.0-36.0 (g/dL) Final RDW 04/15/2024 13:15:00 16.4 11.5-15.5 (%) Final Platelets 04/15/2024 13:15:00 77 Below low normal 140 -400 (K/uL) Final Results rechecked.
null MPV 04/15/2024 13:15:00 9.9 6.6-11.1 ( fL) Final Performing Location LABORATORY [facility] M[facility] [address] - [address] [place] [address]
--- OUTSIDE RECORDS SUMMARY | 2024-05-04 16:51 | External Medical Summary | Summary of Care ---
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 Mechanic Name Role Phone Michael Hinton MD Primary Care Provider [phone] Reason for Visit * Auth/Cert Specialty Diagnoses / Procedures Referred By Bahman akhtar Referred To Contact Diagnoses AVM (arteriovenous malformation) AVM (arteriovenous malformation) [Q27.30] Procedures SMALL BOWEL ENDOSCOPY DIAGNOSTIC SMALL INTESTINE ENDOSCOPY DIAGNOSTIC Edilberto Lujan MD [address] [place] [address] [place] [address] Referral ID Status Reason Start Date Expiration Date Visits Re quested Visits Authorized [id number] Encounter Details Date Type Department Care Team (Latest Contact Info) Description 04/12/2024 6:31 AM EDT - 04/12/2024 1:18 PM EDT Hospital Encounter OR [facility], Operating Room, [facility] - 4th Floor [address] [place] [address] Edilberto Lujan MD [address] [place] [address] Various: SHELIA BERMUDEZ Discharge Disposition: Home - Self Care Allergies Active Allergy Reactions Criticality Noted Date Comments Fabiano Inhibitors Cough 06/09/2017 Carbidopa W-Levodopa 03/17/2021 Constipation Nsaids Rash 05/17/2018 Contraindicated 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 worker 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 documented as of this encounter (statuses as of 04/13/2024) Medications Medication Sig Dispensed Refills Start Date End Date Status Glucose Blood (SHEYLATOUCH FANNY) STRPIndications:Typ e 2 diabetes mellitus with hemoglobin A1c goal of less than 8.0% (HCC) Use up to 4 times a day E11.9 400 Strip 3 08/29/2018 Active CHASE RODRIGUEZ LANCETS 33G MISCIndications:Typ e 2 diabetes mellitus [...] mitral valve regurgitation,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 180 Tablet 3 03/13/2024 Active Amantadine HCl 100 MG Oral Capsule (Symmetrel) Take 1 capsule (100 mg total) by mouth daily . 90 Capsule 03/19/2024 Active documented as of this encounter (statuses as of 04/13/2024) Active Problems Problem Noted Date Diagnosed Date [...] 07/28/2021 Last Assessment & Plan: Follows with [facility] hematology Routine labs monitored by hem/onc [...] knees 03/21/2018 Coronary artery disease invo lving little shell tribe coronary artery of little shell tribe heart without angina pectoris 03/21/2018 Last [...] lipid panel from December--LDL 178--prior LDL from 3/22 99. reports they no longer have atorvastatin--med on list, thinks it ran out and did not kathy refilled. Med refilled and advised to restart. Lipid panel ordered for 3 months by mobile documented as of this encounter (statuses as of 04/13/2024) Resolved Problems Problem Noted Date Diagnosed Date [...] as of this encounter (statuses as of 04/13/2024) Immunizations Name Administration Dates Next Due COVID-19 mRNA, LNP-s, No Pre serve, 2-Dose Series ([employer]) 11/03/2021,12/19/2020,11/28/2020 Covid-19 Ad26, Single Dose ([employer]) 12/19/2020,11/28/2020 DTaP Dipth/Tet/Acell Pertussis (Infanrix), Peds 10/24/2019 [...] Sign Reading Time Taken Comments Blood Pressure 151/73 04/12/2024 12:43 PM EDT Pulse 82 04/12/2024 1:00 PM EDT Temperature 36.3 C (97.3 F) 04/12/2024 1:00 PM ED T Respiratory Rate 18 04/12/2024 1:00 PM EDT Oxygen Saturation 93% 04/12/2024 11:00 AM EDT Inhaled Oxygen Concentration - - Weight 75.8 kg (167 lb) 04/12/2024 7:14 AM EDT Height 165.1 cm (5' 5") 04/09/2024 9:19 AM EDT Body Mass Index 27.79 04/09/2024 9:19 AM EDT documented in this encounter H&P Notes * Edilberto Lujan MD - 04/12/2024 8:20 AM EDT Endoscopy Pre-Procedure Assessment Name: Jesus Jose Date: 04/12/2024 Time: 8:20 AM Procedure(s): Small Bowel Enteroscopy; with Indication(s) of abnormal video capsule endoscopy Endoscopy Pre-Procedure Assessment: Prior to the procedure, the patient was identified. The patient's history, medications and allergies were reviewed as per the Anesthesia Assessment. The patient is competent. The risks and benefits of the proposed procedure and the planned sedation were discussed with the patient. All questions were answered and informed consent for the procedure was obtained. BP 153/74 | Pulse 73 | Temp 35.8 C (96.4 F) (Temporal Artery) | Resp 14 | Ht 1.651 m (5' 5") | Wt 75.8 kg (167 lb) | SpO2 96% | BMI 27.79 kg/m | BSA 1.86 m Review of patient's allergies indicates: Allergen Reactions Fabiano Inhibitors Cough Carbidopa W-Levodopa Constipation Nsaids Rash Contraindicated per iron worker foreman Prior to Admission medications Medication Sig Last Dose Discont. Amantadine HCl 100 MG Oral Capsule (Symmetrel) Take 1 capsule (100 mg total) by mouth daily . 04/11/2024 Torsemide 20 MG Oral Tablet (Demadex) Take 1 Tablet by mouth in the morning. Past Week Escitalopram Oxalate 20 MG Oral Tablet (Lexapro) take one tablet by mouth daily in the morning 04/11/2024 Betamethasone Dipropionate 0.05 % External Ointment APPLY TO SKIN LESIONS AND SCALP LESIONS UP TO TWO TIMES A DAY FOR NO LONGER THAN 2 WEEKS AT A TIME FOR ITCH. (THEN TAKE A 2 WEEK BREAK) 04/11/2024 Atorvastatin Calcium 40 MG Oral Tablet (Lipitor) Take 1 Tablet by mouth in the morning. 04/11/2024 buPROPion HCl ER (XL) 150 MG Oral Tablet Extended Release 24 Hour (Wellbutrin XL) Take 1 Tablet by mouth in the morning. 04/11/2024 Vitamin B Complex Oral Capsule Take 1 Capsule by mouth in the morning. 04/11/2024 Dutasteride 0.5 MG Oral Capsule (Avodart) Take 1 Capsule by mouth in the morning. 04/11/2024 metFORMIN HCl ER 500 MG Oral Tablet Extended Release 24 Hour (Glucophage XR) Take 1 Tablet by mouthdaily. 04/11/2024 Pantoprazole Sodium 40 MG Oral Tablet Delayed Release (Protonix) TAKE ONE TABLET BY MOUTH EVERY DAY Patient taking differently: 1 Tablet in the morning. 04/11/2024 Vitamin D (Cholecalciferol) 25 MCG (1000 UT) Oral Capsule Take 1 Capsule by mouth every evening. 04/11/2024 Acetaminophen 500 MG Oral Tablet Take 2 Tablets by mouth every 8 hours as needed. Take every morning Past Month Metoprolol Succinate ER 25 MG Oral Tablet Extended Release 24 Hour (toPROL XL) TAKE ONE TABLET BY MOUTH EVERY MORNING 04/12/2024 Donepezil HCl 10 MG Oral Tablet (Aricept) TAKE ONE TABLET BY MOUTH EVERY DAY IN THE EVENING 04/11/2024 Glucose Blood (ONETOUCH VERIO) STRP Use up to 4 times a day E11.9 Past Week Cephalexin 500 MG Oral Capsule Take 1 Capsule by mouth in the morning and 1 Capsule at noon and 1 Capsule before bedtime. Do all this for 7 days. Spacer/Aero-Holding Chambers Device Use with inhaler. Doxycycline Hyclate 100 MG Oral Capsule Take 1 Capsule by mouth in the morning and 1 Capsule beforebedtime. Do all this for 7 days. DIURETIC TITRATION PLAN If no improvement on day 3, contact heart failure managing provider. ONETOUCH DELICA LANCETS 33G MISC Use up to 4 times a day Physical Exam: Mental Status Examination: alert and oriented. Airway Examination: normal oropharyngeal airway and neck mobility. Respiratory Examination: clear to auscultation. CV Examination: Regular rate and rythm, no murmurs. ASA Grade: III - A patient with severe systemic disease. After reviewing the risks and benefits, the patient was deemed in satisfactory condition to undergothe procedure. The anesthesia plan was to use general anesthesia. Patient was explained in detail regarding risks, benefits, limitations and alternatives of the above endoscopic procedure. Risks of intravenous sedation used for procedure were also explained. Risks include, but not limited to perforation, bleeding, infection, respiratory distress, cardiac arrest and . Risk of acute pancreatitis and necrosis if ERCP is done. Patient is also aware about the possibility of missed lesion. Patient's questions were answered. The patient verbalized understandingthe information and agreed to undergo the procedure. Discussed with the patient that he/she is at an explicit higher risk for complications in comparison to other patients Edilberto Lujan MD 04/12/2024 documented in this encounter Procedure Notes * Michael Hinton MD - 04/12/2024 8:28 AM EDTAssociated Order(s): UPPER BALLOON ENTEROSCOPY W/O FLUORO [facility] Patient Name: Jesus Jose Procedure Date: 04/12/2024 8:28 AM Date of : 1945 Admit Type: Outpatient Note Status: Finalized Date of : 1945 Admit Type: Outpatient Age: 79 Room: OR 5 Gender: Male Note Status: Finalized Procedure: Upper Device-Assisted Enteroscopy without Fluoroscopy Indications: Abnormal video capsule endoscopy, Obscure gastrointestinal bleeding Providers: Edilberto Lujan MD (Doctor), Jina Allen RN Referring MD: Michael Hinton MD Medicines: General Anesthesia Complications: No immediate complications. Procedure: Pre-Anesthesia Assessment: - Prior to the procedure, a History and Physical was performed, and patient medications, allergies and sensitivities were reviewed. The patient's tolerance of previous anesthesia was reviewed. - The risks and benefits of the procedure and the sedation options and risks were discussed with the patient. All questions were answered and informed consent was obtained. - Patient identification and proposed procedure were verified prior to the procedure by the physician and the nurse. The procedure was verified in the procedure room. - Pre-procedure physical examination revealed no contraindications to sedation. After obtaining informed consent, the endoscope was passed under direct vision using the balloon-assisted technique. All instruments were visually inspected immediately before and after removal from the patient to ensure they are fully intact. Throughout the procedure, the patient's blood pressure, pulse, and oxygen saturations were monitored continuously. The Enteroscope was introduced through the mouth and advanced to the proximal ileum The upper device-assisted enteroscopy was accomplished without difficulty. The patient tolerated the procedure well. Findings & Specimens: The esophagus was normal. The stomach was normal. There was no evidence of significant pathology in the entire examined duodenum. There was no evidence of significant pathology in the entire examined portion of jejunum. The proximal ileum contained three small angioectasias. Vaporization for hemostasis using argon plasma was successful. For hemostasis, three hemostatic clips were successfully placed (MR conditional). 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 Treated with argon plasma coagulation (APC). Clips (MR conditional) were placed. Recommendation: - Discharge patient to home. - Return to referring physician. Edilberto Lujan MD 04/12/2024 9:27:58 AM This report has been signed electronically. Estimated Blood Loss: Estimated blood loss: none. documented in this encounter Nursing Notes * Sheree Lake RN - 04/12/2024 9:48 AM EDT This nurse received pt from OR into PACU. Blood transfusion currently in place with blood running to gravity and through blood warmer. Tubing is not compatible with IV pump, so transfusion continues to flow to gravity. Per [address] MAGISTRATE, 417ml has infused in OR * Jina Allen RN - 04/12/2024 9:21 AM EDT Small bowel enteroscopy completed . Sedated by [address] MAGISTRATE. See anesthesia record for VS and medications given. Pt tolerated procedure well with minimal gagging. Abd soft. Airway patent. Pt to recovery on Lside with HOB elevated. Report to recovery room nurse. Bedside cleaning done. documented in this encounter Miscellaneous Notes * Pt Handout (on AVS) - Karina Magana RN - 04/12/2024 7:42 AM EDT Images from the original note were not included. [address] Push Enteroscopy Push enteroscopy is a procedure that helps find and treat problems most commonly in your upper to middle small intestine. It?s done using a long, narrow, flexible tube called an enteroscope. There are several types of enteroscopes. The tube has a tiny light and a camera on its tip. It connects through a video feed to a screen where the picture is seen in high definition. This lets your healthcareprovider see inside your intestine. The tube is passed through your mouth. It's then guided through your food pipe (esophagus) and stomach to your small intestine. If needed, a tissue sample (biopsy) may be taken. Some problems can also be treated during the procedure. More recently, there is a special type of enteroscope to see the lower part of the small intestine.It can be passed through the rectum to get to the lower small bowel. Sometimes these enteroscopes use balloons to help guide the scope as far as it needs to go. The scope lets your provider see the inside of your small intestine and check for problems. Getting ready for your procedure Tell your healthcare provider about all the medicines you are taking. This includes all prescription and mdlk-cop-gsayfqb medicines, vitamins, herbs, and other supplements. It also includes illegal drugs. You may need to stop taking all or some of these medicines before the test. Follow any directions you?re given for not eating or drinking before the procedure. If you are having an enteroscopy through the rectum, you will be given instructions on a clear liquid diet the day before, and a laxative preparation that evening. The day of your procedure The procedure often takes about 25 to 45 minutes. Some procedures may take longer. You will go homethe same day. Before the procedure begins You will be given medicine to help you relax or sleep (sedation). This is given through an intravenous (IV) line placed in a vein in your arm or hand. Your throat may be numbed with a spray or liquid. You will be given a small plastic guard to protect your teeth. You will be given oxygen to breathethrough 2 soft prongs (called a cannula) that sit just inside your nose. You will be connected to Aviac[employer] to watch your heartbeat. During the procedure You will lie on your left side. The tube is placed in your mouth, and it moves down your throat.Air is used to expand your gastrointestinal (GI) tract so the lining can be seen more clearly. The tube is guided down your esophagus. It then goes through your stomach and into your small intestine. Your position may be changed, or your healthcare provider may apply pressure over your belly (abdomen), if needed. The tube sends pictures of the GI tract to a screen. The esophagus, stomach, and small intestineare checked. Problems such as bleeding, redness or swelling (inflammation), or growths may be seen. Using tools inserted through the tube, small tissue samples can be taken. These are called biopsies. In some cases, small growths can be removed. Other treatments, such as those to stop bleeding, may be done. The tube is then removed. After the procedure Your healthcare provider will talk with you afterward about the results. You?ll rest until you are recovered and can safely go home. Have an adult family member or friend drive you. Plan to rest for the remainder of the day. Recovering at home You?ll likely feel sleepy after the test. A mild sore throat, mild gas, and bloating are normal. Once home, follow any instructions you have been given. If you were given medicine to help you relax or sleep, don't drive, operate machinery, or make major decisions until the next day. When to call your healthcare provider Call your healthcare provider right away if you have any of the following: Fever of 100.4F (38C) or higher, or as directed by your healthcare provider Shaking chills Chest pain Black, tarry stool or bloody stool Severe belly pain that doesn't go away when you pass gas Sore throat that doesn?t go away Trouble swallowing Vomiting, especially with blood Any other signs or symptoms indicated by your provider Follow-up If you had a biopsy, the results will be ready in about 7 days. Your healthcare provider will talk with you about any further testing or treatment that is needed. Risks and possible complications All procedures have some risk. Possible risks of this procedure include: Sore throat or hoarseness Bloating Nausea Allergic reaction to the sedative or numbing medicine Bleeding during or after the procedure Too much bleeding from the biopsy site (if a biopsy is done) A hole or tear (perforation) in the lining of the digestive tract Inhaling food or fluid into the lungs (aspiration) Irregular heartbeat or cardiac arrest. You are at higher risk for this if you have heart or lungdisease. Last Reviewed Date: 12/21/202119992821-8669 [employer]. All rights reserved. This information is not intended as a substitute for professional medical care. Always follow your healthcare professional's instructions. documented in this encounter Plan of Treatment Upcoming Encounters Date Type Department Care Team (Late st Contact Info) Description 04/23/2024 7:15 AM EDT Laboratory Lab [facility]le[facility]omy [facility] [address] [facility] [place], [place] [address] [facility], [facility] Draw [address] [facility] [place] [address] 05/08/2024 2:30 PM EDT Telemedicine [facility], [facility] [address] [place] [address] Berny Power PA-C [address] [place] [address] Meri Mae, [facility] [employer] [facility] Specialist [address] [place] [address] 05/09/2024 7:00 AM EDT Laboratory Lab [facility]bot[facility] [address] [facility] [place] [address] [facility], [facility] Draw [address] [facility] [place], [place] [address] 05/23/2024 7:00 AM EDT Laboratory Lab [facility]lebot[facility] [address] [facility] [place] [address] [facility], [facility] Draw [address] [facility] [place], [place] [address] 05/31/2024 10:00 AM EDT Home Visit [facility], [facility] [address] [place] [address] Peggy De, RN [address] [facility] [place] [address] 06/06/2024 7:00 AM EDT Laboratory Lab [facility]lebot[facility] [address] [facility] [place] [address] [facility], [facility] Draw [address] [facility] [place] [address] 06/20/2024 7:00 AM EDT Laboratory Lab [facility]bot[facility] [address] [place] [address] [facility], [facility] Draw [address] [address] 07/04/2024 7:00 AM EDT Laboratory Lab [facility]lebot[facility] [address] [place] [address] [facility], [facility] Draw [address] [place] [address] 07/18/2024 7:00 AM EDT Laboratory Lab [facility]lebot[facility] [address] [place] [address] [facility], [facility] Draw [address] [address] 08/01/2024 7:00 AM EDT Laboratory Lab [facility]lebotomy [facility] [address] [place], [place] [address] [facility], [facility] Draw [address] [place] [address] 08/13/2024 8:00 AM EDT Office Visit Cardiology, [facility] [address] [facility] [place] [address] Dominick Benz, [address] [place] [address] 08/15/2024 7:00 AM EDT Laboratory Lab [facility]lebotomy [facility] [address] [place] [address] [facility], [facility] Draw [address] [place] [address] 08/29/2024 7:00 AM EST Laboratory Lab [facility]bot[facility] [address] [place] [address] M[facility], [facility]ml [facility] Draw [address] [address] 08/29/2024 8:00 AM EST Hospital Encounter ENDO [facility], Endoscopy Room [facility] [address] [place] [phone] Arnie Shrestha MD [address] [place] [address] 08/29/2024 8:00 AM EST - 08/29/2024 8:30 AM EST Surgery ENDO [facility], Endoscopy Room [facility] [address] [place] [phone] Arnie Shrestha MD [address] [place] [address] COLONOSCOPY FLEXIBLE PROXIMAL DIAGNOSTIC 09/02/2024 1:45 PM EST Office Visit Dermatology [facility] [address] [facility] [place] [address] Osvaldo Liu MD [address] [facility] [place] [address] 09/12/2024 7:00 AM EST Laboratory Lab [facility]bot[facility] [address] [place] [address] [facility], Gml [facility] Draw [address] [facility] [place] [address] 09/17/2024 11:15 AM EST Office Visit Urology, [facility] [address] [facility] [place] [address] Kalpesh Funes MD [address] [place] [address] [place] [address] 09/26/2024 7:00 AM EST Laboratory Lab [facility] [address] [place] [address] M[facility], Gml [facility] Draw [address] [place] [address] 03/12/2025 3:30 PM EDT Home Visit Care at Home [address] [place] [address] Betina Jacob PA-C [address] [facility] [address] Scheduled Procedures Name Priority Associated Diagnoses Date/Ti [...] Additional history exists CKD PHOS USE SMARTSET 29972 12/07/202411/23, 12/26/2022, 06/21/2021 Depression Screening 03/07/2025 03/07/2024 CKD HGB USE SMARTSET 32193 04/12/202504/12, 04/11/2024, 04/11/2024, Additional history exists Colonoscopy [...] this encounter Medical Devices Implanted Type Area Barrel Lathe Operator Inside Device Identifier Shelf Expiration Date Model / Serial / Lot Lens Intraoc 22.5 - [id number] - [id number] Implanted:Qty: 1 on 05/22/2018 by Jasbir Maurer MD at OR [facility] Right: Eye [employer] 11/22/2022 [id number] / [id number] / [id number] Lens Intraoc 21.0 - [id number] - [id number] Implanted:Qty: 1 on 06/05/2018 by Jasbir Maurer MD at OR [facility] Left: Eye [employer] 12/20/2022 [id number] / [id number] / Duraclip 16mm Xlg Repostn - [id number] Implanted:Qty: 1 on 04/12/2024 by Edilberto Lujan MD at OR [facility] [employer] [id number] 12/08/2024 [id number] / / [id number] Duraclip 16mm Xlg Repostn - [id number] Implanted:Qty: 1 on 04/12/2024 by Edilberto Lujan MD at OR [facility] [employer] [id number] 12/08/2024 [id number] / / [id number] Duraclip 16mm Xlg Repostn - [id number] Implanted:Qty: 1 on 04/12/2024 by Edilberto Lujan MD at OR [facility] [employer] [id number] 12/08/2024 [id number] / / [id number] documented as of this encounter Procedures Procedure Name Priority Date/Time Associated Diagnosis Comments TRANSFUSE PACKED RED BLOOD CELLS Routine 04/12/2024 10:27 AM EDT TRANSFUSE PACKED RED BLOOD CELLS Routine 04/12/2024 9:17 AM EDT UPPER BALLOON ENTEROSCOPY W/O FLUORO 04/12/2024 8:28 AM EDT ABO/RH STAT 04/12/2024 8:12 AM EDT TYPE AND SCREEN STAT 04/12/2024 8:12 AM EDT CBC STAT 04/12/2024 8:12 AM EDT PREPARE PACKED RED BLOOD CELLS Routine 04/12/2024 7:50 AM EDT GLUCOSE METER, POINT OF CARE PAU 04/12/2024 7:19 AM EDT documented in this encounter Results * TRANSFUSE PACKED RED BLOOD CELLS (04/12/2024 12:43 PM EDT) Edilberto AGUILAR BANK TRANFUSE O RDERABLES * TRANSFUSE PACKED RED BLOOD CELLS (04/12/2024 12:43 PM EDT) Edilberto AGUILAR BANK TRANFUSE O RDERABLES * TRANSFUSE PACKED RED BLOOD CELLS (04/12/2024 9:38 AM EDT) Edilberto AGUILAR BANK TRANFUSE O RDERABLES * UPPER BALLOON ENTEROSCOPY W/O FLUORO (04/12/2024 8:28 AM EDT) 04/12/2024 8:28 AM EDT Narrative Procedure Note Michael Hinton MD - 04/12/2024 8:28 AM EDT [facility] Patient Name: Jesus Jose Procedure Date: 04/12/2024 8:28 AM Date of : 1945 Admit Type: Outpatient Note Status:Finalized Date of : 1945 Admit Type: Outpatient Age: 79 Room: OR 5 Gender: Male Note Status: Finalized Procedure: Upper Device-Assisted Enteroscopy withoutFluoroscopy Indications: Abnormal video capsule endoscopy, Obscuregastrointestinal bleeding Providers: Edilberto Lujan MD (Doctor), Jina Allen RN Referring MD: Michael Hinton MD Medicines: General Anesthesia Complications: No immediate complications. Procedure: Pre-Anesthesia Assessment: - Prior to the procedure, a History and Physicalwas performed, and patient medications, allergies and sensitivities werereviewed. The patient's tolerance of previous anesthesia was reviewed. - The risks and benefits of the procedure and thesedation options and risks were discussed with the patient. All questions wereanswered and informed consent was obtained. - Patient identification and proposed procedurewere verified prior to the procedure by the physician and the nurse. The procedure wasverified in the procedure room. - Pre-procedure physical examination revealed nocontraindications to sedation. After obtaining informed consent, the endoscope waspassed under direct vision using the balloon-assisted technique. All instrumentswere visually inspected immediately before and after removal from the patient to ensurethey are fully intact. Throughout the procedure, the patient's blood pressure, pulse,and oxygen saturations were monitored continuously. The Enteroscope wasintroduced through the mouth and advanced to the proximal ileum The upper device-assistedenteroscopy was accomplished without difficulty. The patient tolerated the procedurewell. Findings & Specimens: The esophagus was normal. The stomach was normal. There was no evidence of significant pathology in the entire examinedduodenum. There was no evidence of significant pathology in the entire examinedportion of jejunum. The proximal ileum contained three small angioectasias. Vaporizationfor hemostasis using argon plasma was successful. For hemostasis, three hemostatic clips weresuccessfully placed (MR conditional). 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 Treated withargon plasma coagulation (APC). Clips (MR conditional) were placed. Recommendation: - Discharge patient to home. - Return to referring physician. Edilberto Lujan MD 04/12/2024 9:27:58 AM This report has been signed electronically. Estimated Blood Loss: Estimated blood loss: none. Micheal Hinton MD GASTRO UPPER * ABO/RH (04/12/2024 8:12 AM EDT) ABO A 04/12/2024 8:57 AM EDT LABORATORY [facility] BLOOD BANK Rh Positive 04/12/2024 8:57 AM EDT LAB[facility] BLOOD BANK Blood Venous blood specimen / Unknown Venipuncture / Unknown 04/12/2024 8:12 AM EDT 04/12/2024 8:14 AM EDT Edilberto Lujan MD LAB BLOOD BANK TEST ORDERABLES LAB[facility]AT[facility] BLOOD BANK [address] [place] [phone] * (ABNORMAL) CBC (04/12/2024 8:12 AM EDT) WBC 3.28(L) 4.00 - 10.80 K/uL 04/12/2024 8:17 AM EDT [facility] RBC 2.18 4.50 - 5.25 M/uL 04/12/2024 8:17 AM EDT [facility] HGB 7.2(L) 14.0 - 16.8 g/dL 04/12/2024 8:17 AM EDT [facility] HCT 23.0(L) 40.0 - 48.4 % 04/12/2024 8:17 AM EDT [facility] MCV 105.5 82.0 - 99.5 fL 04/12/2024 8:17 AM EDT [facility] MCH 33.0 27.0 - 34.0 pg 04/12/2024 8:17 AM EDT [facility] MCHC 31.3 32.0 - 36.0 g/dL 04/12/2024 8:17 AM EDT [facility] RDW 16.8 11.5 - 15.5 % 04/12/2024 8:17 AM EDT [facility] PLT 108(L) 140 - 400 K/uL 04/12/2024 8:17 AM EDT [facility] MPV 9.1 6.6 - 11.1 fL 04/12/2024 8:17 AM EDT [facility] nRBCs 0 <=0 /100 WBCs 04/12/2024 8:17 AM EDT [facility] Blood Venous blood specimen / Unknown Venipuncture / Unknown 04/12/2024 8:12 AM EDT 04/12/2024 8:14 AM EDT Edilberto Lujan MD LAB BLOOD ORDERABLE S Performing Organization Address [facility]/ZIP Co de Phone Number LABORATORY [address] [address] * TYPE AND SCREEN (04/12/2024 8:12 AM EDT) ABO A 04/12/2024 8:55 AM EDT [facility] BLOOD BANK Rh Positive 04/12/2024 8:55 AM EDT [facility] BLOOD BANK Red Blood Cell Antibody Screen Negative 04/12/2024 8:55 AM EDT [facility] BLOOD BANK Specimen Expiration Date 04/15/2024 23:59 04/12/2024 8:55 AM EDT [facility] BLOOD BANK Blood Venous blood specimen / Unknown Venipuncture / Unknown 04/12/2024 8:12 AM EDT 04/12/2024 8:14 AM EDT Edilberto Lujan MD LAB BLOOD BANK TEST ORDERABLES Performing Organization Address City/[facility] Co de Phone Number [facility]AT[facility] BLOOD BANK [address] [place] [phone] * PREPARE PACKED RED BLOOD CELLS (04/12/2024 7:50 AM EDT) Unit Product Code [id number] 04/12/2024 9:10 AM EDT [facility] BLOOD BANK Unit Number [id number] 04/12/2024 9:10 AM EDT [facility] BLOOD BANK Unit ABO A 04/12/2024 9:10 AM EDT [facility] BLOOD BANK Unit Rh POS 04/12/2024 9:10 AM EDT [facility] BLOOD BANK Unit Crossmatch Compatible 04/12/2024 8:58 AM EDT [facility] BLOOD BANK Unit Status IS 04/12/2024 9:10 AM EDT [facility] BLOOD BANK Unit Blood Type APOS 04/12/2024 9:10 AM EDT [facility] BLOOD BANK Unit Expiration [id number] 04/12/2024 9:10 AM EDT [facility] BLOOD BANK Unit Barcode 6200 04/12/2024 9:10 AM EDT [facility] BLOOD BANK Unit Product Code [id number] 04/12/2024 10:07 AM EDT [facility] BLOOD BANK Unit Number [id number] 04/12/2024 10:07 AM EDT [facility] BLOOD BANK Unit ABO A 04/12/2024 10:07 AM EDT [facility] BLOOD BANK Unit Rh NEG 04/12/2024 10:07 AM EDT [facility] BLOOD BANK Unit Crossmatch Compatible 04/12/2024 9:02 AM EDT LAB[facility] BLOOD BANK Unit Status IS 04/12/2024 10:07 AM EDT [facility] BLOOD BANK Unit Blood Type ANEG 04/12/2024 10:07 AM EDT [facility] BLOOD BANK Unit Expiration [id number] 04/12/2024 10:07 AM EDT [facility] BLOOD BANK Unit Barcode 0600 04/12/2024 10:07 AM EDT [facility] BLOOD BANK 04/12/2024 7:50 AM EDT Edilberto Lujan MD BLD BANK PRODUCT OR DERABLES Performing Organization Address City/[facility] Co de Phone Number LAB[facility]ATORY [facility] BLOOD BANK [address] [place] [phone] * (ABNORMAL) GLUCOSE METER, POINT OF CARE (04/12/2024 7:19 AM EDT) [facility] Glucose Meter 153(H) 70 - 120 mg/dL 04/12/2024 7:21 AM EDT [facility] LABOR[facility] Blood Whole blood specimen / Unknown 04/12/2024 7:19 AM EDT 04/12/2024 7:21 AM EDT Edilberto Lujan MD LAB POINT OF CARE T EST DOCKED DEVICE UNSOLICITED RESULTS Performing Organization Address City/[facility]/ZIP Co de Phone Number [facility] LABOR[facility] [address] [place] [phone] documented in this encounter Administered Medications Inactive Administered Medications - up to 3 most recent administrations Medication Order MAR Action Action Date Dose Rate Site isolyte-S pH 7.4 infusion Intravenous, at 25 mL/hr, All Patients EXCEPT Dialysis patients Plasma-LYTE 148, isolyte-S, and isolyte-S pH 7.4 are considered equivalent - including for MAR barcode scanning., CONTINUOUS, Starting on Mon04/12/24 at 0800, Until Mon04/12/24 at 1718, Pre-Op Restarted 04/12/2024 8:35 AM EDT New Bag 04/12/2024 8:00 AM EDT 25 mL/hr 25 mL/hr documented in this encounter Active and Recently Administered Medications Times are shown in EDT. Continuous Medication Order 04/10/2024 04/11/2024 04/12/2024 isolyte-S pH 7.4 infusion Intravenous, at 25 mL/hr, All Patients EXCEPT Dialysis patients Plasma-LYTE 148, isolyte-S, and isolyte-S pH 7.4 are considered equivalent - including for MAR barcode scanning., CONTINUOUS, Starting on Mon04/12/24 at 0800, Until Mon04/12/24 at 1718, Pre-Op 0800 (New Bag - Prov ider: Tk Magana RN)0834 (Paused - Provider: Brain Martin CRNA - Comment: Switch to gravity)0835 (Restarted - Provider: Brain Martin CRNA)0901 (Anes Intra-Op Fluid - Provider: Zacarias Davis CRNA)0927 (Stopped - Provider: Brain Martin CRNA) documented in this encounter Advance Directives * [...] Care Power of Attor mayela Care Teams Aircraft Armament Mechanic Relationship Specialty Start Date End Date Michael Hinton MD [address] [address] PCP - General Family Medicine 08/07/17 documented as of this encounter
--- OUTSIDE RECORDS SUMMARY | 2024-05-04 16:51 | External Medical Summary ---
Author Name Unknown Address Unknown Organization [id number]:LABORATORY [facility] [place] [address] - [address] [place] [address] Laboratory Report Ordering Provider Test Date Status GUERRERO CHAUHAN 04/11/2024 09:55:00 Final Observation Date Value Abnormality Reference (Units ) Status WBC, Total 04/11/2024 09:55:00 3.98 Below low normal 4. 00-10.80 (K/uL) Final RBC 04/11/2024 09:55:00 2.48 4.50-5.25 (M/uL) Final Hemoglobin 04/11/2024 09:55:00 7.9 Below low normal 14 .0-16.8 (g/dL) Final HCT 04/11/2024 09:55:00 26.2 Below low normal 40. 0-48.4 (%) Final MCV 04/11/2024 09:55:00 105.6 82.0-99.5 (fL) Final MCH 04/11/2024 09:55:00 31.9 27.0-34.0 (pg) Final MCHC 04/11/2024 09:55:00 30.2 32.0-36.0 (g/dL) Final RDW 04/11/2024 09:55:00 16.8 11.5-15.5 (%) Final Platelets 04/11/2024 09:55:00 157 140-400 (K /uL) Final MPV 04/11/2024 09:55:00 9.4 6.6-11.1 ( fL) Final Performing Location [facility] [address] [place] [address]
--- OUTSIDE RECORDS SUMMARY | 2024-05-04 16:51 | External Medical Summary ---
Author Name Unknown Address Unknown Organization [id number]:LABORATORY [facility] B LOOD BANK - [address] [place] [address] Laboratory Report Ordering Provider Test Date Status SUSAN OLIVAMARIANELA 04/12/2024 08:12:00 Final Observation Date Value Abnormality Reference (Units ) Status ABO 04/12/2024 08:12:00 A Final RH 04/12/2024 08:12:00 Positive Final Performing Location LABORATORY [facility] BLOOD BANK - [address] [place] [address]
--- OUTSIDE RECORDS SUMMARY | 2024-05-04 16:51 | External Medical Summary ---
Author Name Unknown Address Unknown Organization [id number]:LABORATORY [facility] B LOOD BANK - [address] [place] [address] Laboratory Report Ordering Provider Test Date Status SUSAN OLIVAMARIANELA 04/12/2024 08:12:00 Final Observation Date Value Abnormality Reference (Units ) Status ABO 04/12/2024 08:12:00 A Final RH 04/12/2024 08:12:00 Positive Final RED BLOOD CELL ANTIBODY SCREEN 04/12/2024 08:12:00 Negative Final SPECIMEN EXPIRATION DATE 04/12/2024 08:12:00 04/15/2024 23:59 Final Performing Location LABORATORY [facility] BLOOD BANK - [address] [place] [address]
--- OUTSIDE RECORDS SUMMARY | 2024-05-04 16:51 | External Medical Summary ---
Author Name Unknown Address Unknown Organization K0G:LABORATORY [facility] [place] [address] [place] [address] Laboratory Report Ordering Provider Test Date Status MEI BASSETT 04/15/2024 13:15:00 Final Observation Date Value Abnormality Reference (Units ) Status Nucleated erythrocytes/100 leukocytes [Ratio] in Blood by Automated count 04/15/2024 13:15:00 Final Performing Location LABORATORY [facility] [place] [address] [place] [address]
--- OUTSIDE RECORDS SUMMARY | 2024-05-04 16:51 | External Medical Summary | Summary of Care ---
Author Name Unknown Organization [facility] Address [address] [place] [address] Phone [phone] Care Team Providers Care Real Estate Agent/Broker Name Role Phone Michael Hinton MD Primary Care Provider [phone] Reason for Visit * Reason Onset Date Comments [facility]: Maintenance 04/10/2024 Encounter Details Date Type Department Care Team (Late st Contact Info) Description 04/10/2024 Telephone [facility], [facility] [address] [facility] [place] [address] [facility], Nurse [facility] [address] [facility] [place] [address] [facility]: Maintenance Allergies Active Allergy Reactions Criticality Noted Date Comments Fabiano Inhibitors Cough 06/09/2017 Carbidopa W-Levodopa 03/17/2021 Constipation Nsaids Rash 05/17/2018 Contraindicated per undercover cop documented as of this encounter (statuses as [...] mRNA, LNP-s, No Pre serve, 2-Dose Series ([facility] [employer]) 11/03/2021,12/19/2020,11/28/2020 Covid-19 Ad26, Single Dose (Soy/J&J) 12/19/2020,11/28/2020 [...] follow low sodium diet. Dominick Clark MD, [facility], [facility], FAAFP Remote Medical Command ([facility]) [facility] Available on Agnitus * Telephone Encounter - Kasey Lutz LPN [...] High risk: Route to RNCM (Registered Nurse Manager Investment Banking) and Advance Practitioner Route to [facility] (Remote Medical Coordinator) documented in this encounter Plan of Treatment Upcoming Encounters Date Type Department Care Team (Late st Contact Info) Description 04/11/2024 7:00 AM EDT Laboratory Lab Mobile Phlebotomy [facility] [address] [facility] [place] [address] [facility], [facility] Mobile Home Draw [address] [facility] [place] [address] 04/12/2024 8:38 AM EDT Hospital Encounter OR [facility], Operating Room, [facility] - 4th Floor [address] [place] [address] Edilberto Lujan MD [address] [place] [address] 04/12/2024 8:38 AM EDT - 04/12/2024 9:40 AM EDT Surgery OR [facility], Operating Room, [facility] - 4th Floor [address] [place] [address] Edilberto Lujan MD [address] [place] [address] SMALL INTESTINE ENDOSCOPY DIAGNOSTIC 04/23/2024 7:15 AM EDT Laboratory Lab Mobile Phlebotomy [facility] [address] [place] [address] [facility], [facility]ml Mobile Home Draw [address] [facility] [place] [address] 05/08/2024 2:30 PM EDT Telemedicine [facility] [place], [facility] [address] [address] Berny Power PA-C [address] [place] [address] Meri Mae, [facility] Line Cook [address] [place] [address] 05/09/2024 7:00 AM EDT Laboratory Lab Mobile Phlebotomy [facility] [address] [facility] [place], [place] [address] [facility], Gml Mobile Home Draw [address] [facility] [place], [place] [address] 05/23/2024 7:00 AM EDT Laboratory Lab Mobile Phlebotomy [facility] [address] [facility] [place] [address] M[facility], Gml Mobile Home Draw [address] [facility] [place] [address] 05/31/2024 10:00 AM EDT Home Visit [facility] [address] [facility] [place] [address] Peggy De RN [address] [facility] [place] [address] 06/06/2024 7:00 AM EDT Laboratory Lab Mobile Phlebotomy [facility] [address] [facility] [place], [place] [address] Mv[facility], Gml Mobile Home Draw [address] [facility] [place], [place] [address] 06/20/2024 7:00 AM EDT Laboratory Lab Mobile Phlebotomy [facility] [address] [facility] [place], [place] [address] M[facility], Gml Mobile Home Draw [address] [facility] [place], [place] [address] 07/04/2024 7:00 AM EDT Laboratory Lab Mobile Phlebotomy [facility] [address] [facility] [place] [address] Mvmg, Gml Mobile Home Draw [address] [facility] [place] [address] 07/18/2024 7:00 AM EDT Laboratory Lab Mobile Phlebotomy [facility] [address] [facility] [place], [place] [address] Mvmg, Gml Mobile Home Draw [address] [facility] [place] [address] 08/01/2024 7:00 AM EDT Laboratory Lab Mobile Phlebotomy [facility] [address] [facility] [place], [place] [address] Mvmg, Gml Mobile Home Draw [address] [facility] [place] [address] 08/13/2024 8:00 AM EDT Office Visit Cardiology, [facility] [address] [place] [address] Dominick Benz DO [address] [place] [address] 08/15/2024 7:00 AM EDT Laboratory Lab Mobile Phlebotomy [facility] [address] [facility] [place] [address] Mv[facility], Gml Mobile Home Draw [address] [facility] [place] [address] 08/29/2024 7:00 AM EST Laboratory Lab Mobile Phlebotomy [facility] [address] [facility] [place] [address] Mvmg, Gml Mobile Home Draw [address] [facility] [place] [address] 08/29/2024 8:00 AM EST Hospital Encounter ENDO OSS, Endoscopy Room [facility] [address] [place] [id number] Arnie Shrestha MD [address] [place] [address] 08/29/2024 8:00 AM EST - 08/29/2024 8:30 AM EST Surgery ENDO OSS, Endoscopy Room [facility] [address] [place] [phone] Arnie Shrestha MD [address] [place] [address] COLONOSCOPY FLEXIBLE PROXIMAL DIAGNOSTIC 09/02/2024 1:45 PM EST Office Visit Dermatology [facility] [address] [place] [address] Osvaldo Liu MD [address] [place], [place] [address] 09/12/2024 7:00 AM EST Laboratory Lab Mobile Phlebotomy [facility] [address] [facility] [place] [address] Mvmg, Gml Mobile Home Draw [address] [facility] [place] [address] 09/17/2024 11:15 AM EST Office Visit Urology, [facility] [address] [facility] [place] [address] Kalpesh Funes MD [address] [facility] [address] [place] [address] 09/26/2024 7:00 AM EST Laboratory Lab Mobile Phlebotomy [facility] [address] [facility] [place] [address] Mvmg, Gml Mobile Home Draw [address] [facility] [place], [place] [address] 03/12/2025 3:30 PM EDT Home Visit Care at Home [address] [place], [place] [id number] Betina Jacob PA-C [address], [place] [phone] Scheduled Procedures Name Priority Associated Diagnoses Date/Ti [...] Additional history exists CKD PHOS USE SMARTSET 80299 12/07/202411/23, 12/26/2022, 06/21/2021 Depression Screening 03/07/2025 03/07/2024 CKD HGB USE SMARTSET 99153 03/28/202503/28, 03/28/2024, 03/14/2024, Additional history exists Colonoscopy [...] this encounter Medical Devices Implanted Type Area Television Installer Device Identifier Shelf Expiration Date Model / Serial / Lot Lens Intraoc 22.5 - [id number] - [id number] Implanted:Qty: 1 on 05/22/2018 by Jasbir Maurer MD at OR [facility] Right: Eye [employer] 11/22/2022 [id number] / [id number] / [id number] Lens Intraoc 21.0 - [id number] - [id number] Implanted:Qty: 1 on 06/05/2018 by Jasbir Maurer MD at OR [facility] Left: Eye [employer] 12/20/2022 [id number] / [id number] / documented as of this encounter Advance [...] Care Power of Attor mayela Care Teams Real Estate Agent/Broker Relationship Specialty Start Date End Date Michael Hinton MD [address] [place] [address] PCP - General Family Medicine 08/07/17 documented as of this encounter
--- OUTSIDE RECORDS SUMMARY | 2024-05-04 16:51 | External Medical Summary ---
Author Name Unknown Address Unknown Organization K0G:LABORATORY [place] [address] - [address] [place] [address] Laboratory Report Ordering Provider Test Date Status MEI BASSETT 04/15/2024 13:15:00 Final Observation Date Value Abnormality Reference (Units ) Status SYNC LEUKOCYTES IN BLOOD BY AUTOMATED COUNT 04/15/2024 13:15:00 2.22 Below low normal 4.00-10.80 (K/uL) Final Segs 04/15/2024 13:15:00 77.3 Above high normal 40.0-75.0 (%) Final Lymphs % 04/15/2024 13:15:00 12.4 Below low normal 18.0-42.0 (%) Final Monos 04/15/2024 13:15:00 9.4 1.0-11.0 (%) Final Eosinophils 04/15/2024 13:15:00 0.9 0.0-6.0 (%) Final Basos 04/15/2024 13:15:00 0.0 0.0-2.0 (%) Final Absolute Segs 04/15/2024 13:15:00 1.81 1.80-7.70 (K/uL) Final Lymphs, absolute 04/15/2024 13:15:00 0.29 Below low normal 1.00-4.80 (K/ul) Final Monos, Abs 04/15/2024 13:15:00 0.22 0.00-1.10 (K/uL) Final Eos, Abs 04/15/2024 13:15:00 0.02 0.00-0.70 (K/uL) Final Basos, Abs 04/15/2024 13:15:00 0.00 0.00-0.20 (K/uL) Final Performing Location LABORATORY [place] [address] [place] [address]
--- OUTSIDE RECORDS SUMMARY | 2024-05-04 16:51 | External Medical Summary | Summary of Care ---
Author Name Unknown Organization [facility] Address [address] [place] [address] Phone [phone] Care Team Providers Care Head Bander And Liner Operator Name Role Phone Michael Hinton MD Primary Care Provider [phone] Reason for Visit * Reason Comments Outpatient Testing Encounter Details Date Type Department Care Team (Late st Contact Info) Description 04/15/2024 2:00 PM EDT Laboratory Laboratory, [facility] [address] [facility] [place] [address] [facility] [address] [facility] [place] [id number] History of cellulitis; Hypertensive 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) Allergies Active Allergy Reactions Criticality Noted Date Comments Fabiano Inhibitors Cough 06/09/2017 Carbidopa W-Levodopa 03/17/2021 Constipation Nsaids Rash 05/17/2018 Contraindicated per gas and oil checker documented as of this encounter (statuses as [...] mitral valve regurgitation,Coron daniel artery disease involving ramona coronary artery of ramona heart without angina pectoris,Stage 3b chronic kidney [...] knees 03/21/2018 Coronary artery disease invo lving ramona coronary artery of ramona heart without angina pectoris 03/21/2018 Last Assessment [...] document from 11/13/[address] bains [facility]. 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y [...] mRNA, LNP-s, No Pre serve, 2-Dose Series ([employer]) 11/03/2021,12/19/2020,11/28/2020 Covid-19 Ad26, Single Dose (Wote/J&J) 12/19/2020,11/28/2020 DTaP Dipth/Tet/Acell Pertussis (Infanrix), Peds 10/24/2019 [...] 2:00 PM EDT [facility] [address] [address] Peggy De RN [address] [place] [address] 04/17/2024 9:30 AM EDT [facility] [address] [address] Coordinator, [facility] [address] [address] 04/23/2024 7:15 AM EDT Laboratory [facility] [address] [place] [address] [facility] [address] [place] [address] 05/08/2024 2:30 PM EDT Telemedicine [facility], [facility] [address] [facility] [place], [place] [address] Berny Power PA-C [address] [place] [address] Meri Mae, [facility] [address] [place] [address] 05/09/2024 7:00 AM EDT Laboratory [facility] [address] [place] [address] [facility] [address] [place] [address] 05/23/2024 7:00 AM EDT Laboratory [facility] [address] [place] [address] [facility] [address] [place] [address] 05/31/2024 10:00 AM EDT [facility] Visit [facility], [facility] [address] [facility] [place] [address] Peggy De, RN [address] [place] [address] 06/06/2024 7:00 AM EDT Laboratory [facility] [address] [place] [address] [address] [facility] [address] [place] [address] 06/20/2024 7:00 AM EDT Laboratory [facility] [address] [address] M[facility], [facility] [address] [place] [address] [address] 07/04/2024 7:00 AM EDT Laboratory [facility] [address] [facility] [place], [place] [address] Mvmg, [facility] [address] [facility] [place], [place] [address] 07/18/2024 7:00 AM EDT Laboratory [facility] [address] [facility] [place], [place] [address] Mvmg, [facility] [address] [facility] [place] [address] 08/01/2024 7:00 AM EDT Laboratory [facility] [address] [facility] [place], [place] [address] M[facility], [facility] [address] [facility] [place], [place] [address] 08/13/2024 8:00 AM EDT Office Visit Cardiology, [facility] [address] [place] [address] [address] Dominick Benz DO [address] [place] [address] 08/15/2024 7:00 AM EDT Laboratory [facility] [address] [facility] [place], [place] [address] M[facility], [facility] [address] [facility] [place], [place] [address] 08/29/2024 7:00 AM EST Laboratory [facility] [address] [facility] [place] [address] Mvmg, [facility] [address] [facility] [place] [address] 08/29/2024 8:00 AM EST Hospital Encounter ENDO [facility], Endoscopy Room [facility] [address] [place] [phone] Arnie Shrestha MD [address] [place] [address] 08/29/2024 8:00 AM EST - 08/29/2024 8:30 AM EST Surgery ENDO [facility], Endoscopy Room [facility] 132 [facility] [place] [phone] Arnie Shrestha MD 132 [facility] [place] [address] COLONOSCOPY FLEXIBLE PROXIMAL DIAGNOSTIC 09/02/2024 1:45 PM EST Office Visit Dermatology [facility] [address] [facility] [place] [address] Osvaldo Liu MD [address] [facility] [place] [address] 09/12/2024 7:00 AM EST Laboratory [facility] [address] [place] [address] Mvmg, [facility] [address] [place] [address] 09/17/2024 11:15 AM EST Office Visit Urology, [facility] [address] [facility] [place] [address] Kalpesh Funes MD 27 [facility] [address] [place] [address] 09/26/2024 7:00 AM EST Laboratory [facility] [address] [place] [address] M[facility], [facility] Draw [address] [place] [address] 03/12/2025 3:30 PM EDT Home Visit [facility] at Home [address] [facility] [place] [address] Betina Jacob PA-C [address] [facility] [address] Pending Results Name Type Priority Associated Diagnoses Date /Time CBC WITH WBC DIFFERENTIAL Lab Routine History of cellulitis 04/15/2024 1:15 PM EDT BNP, NT-PRO Lab Routine Hypertensive 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) 04/15/2024 1:15 PM EDT BASIC METABOLIC PANEL Lab Routine Hypertensive heart [...] Additional history exists CKD PHOS USE SMARTSET 90531 12/07/202411/23, 12/26/2022, 06/21/2021 Depression Screening 03/07/2025 03/07/2024 CKD HGB USE SMARTSET 86563 04/12/202504/12, 04/11/2024, 04/11/2024, Additional history exists Colonoscopy [...] this encounter Medical Devices Implanted Type Area Tower Foreman Device Identifier Shelf Expiration Date Model / Serial / Lot Lens Intraoc 22.5 - [id number] - [id number] Implanted:Qty: 1 on 05/22/2018 by Jasbir Maurer MD at OR [facility] Right: Eye [employer] 11/22/2022 [id number] / [id number] / [id number] Lens Intraoc 21.0 - [id number] - [id number] Implanted:Qty: 1 on 06/05/2018 by Jasbir Maurer MD at OR [facility] Left: Eye [employer]OM[employer] 12/20/2022 [id number] / [id number] / Duraclip 16mm Xlg Repostn - [id number] Implanted:Qty: 1 on 04/12/2024 by Edilberto Lujan MD at OR [facility] [employer] [id number] 12/08/2024 [id number] / / [id number] Duraclip 16mm Xlg Repostn - [id number] Implanted:Qty: 1 on 04/12/2024 by Edilberto Lujan MD at OR [facility] [employer] [id number] 12/08/2024 [id number] / / [id number] Duraclip 16mm Xlg Repostn - [id number] Implanted:Qty: 1 on 04/12/2024 by Edilberto Lujan MD at OR [facility] [employer] [facility] [id number] 12/08/2024 [id number] / / [id number] documented as of this encounter Visit Diagnoses Diagnosis History of [...] Care Power of Attor mayela Care Teams Head Bander And Liner Operator Relationship Specialty Start Date End Date Michael Hinton MD [address] [place] [address] [address] PCP - General Family Medicine 08/07/17 documented as of this encounter
--- OUTSIDE RECORDS SUMMARY | 2024-05-04 16:51 | External Medical Summary | Summary of Care ---
Author Name Unknown Organization [facility] Address [address] [place] [address] Phone [phone] Care Team Providers Care Learning And Development Analyst Name Role Phone Michael Hinton MD Primary Care Provider [phone] Reason for Visit * Reason Comments Outpatient Testing Encounter Details Date Type Department Care Team (Late st Contact Info) Description 04/15/2024 2:00 PM EDT Laboratory Laboratory, [facility] [address] [place] [address] [facility] [address] [facility] [place] [id number] History of cellulitis; Hypertensive 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) Allergies Active Allergy Reactions Criticality Noted Date Comments Fabiano Inhibitors Cough 06/09/2017 Carbidopa W-Levodopa 03/17/2021 Constipation Nsaids Rash 05/17/2018 Contraindicated per cosmetology professor documented as of this encounter (statuses as [...] mitral valve regurgitation,Coron daniel artery disease involving la posta coronary artery of la posta heart without angina pectoris,Stage 3b chronic kidney [...] knees 03/21/2018 Coronary artery disease invo lving la posta coronary artery of la posta heart without angina pectoris 03/21/2018 Last Assessment [...] scanned document from 11/13/[address] [facility]. 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y [...] mRNA, LNP-s, No Pre serve, 2-Dose Series ([employer]) 11/03/2021,12/19/2020,11/28/2020 Covid-19 Ad26, Single Dose ([email or web address]/[email or web address]) 12/19/2020,11/28/2020 DTaP Dipth/Tet/Acell Pertussis (Infanrix), Peds 10/24/2019 [...] 2:00 PM EDT [facility] [address] [address] Peggy De RN [address] [place] [address] [address] 04/17/2024 9:30 AM EDT [facility] [address] [address] Coordinator, [facility] [address] [place] [address] [address] 04/23/2024 7:15 AM EDT Laboratory [facility] [address] [place] [address] M[facility]mg, [facility] [address] [place] [address] 05/08/2024 2:30 PM EDT Telemedicine [facility], [facility] [address] [facility] [place], [place] [address] Berny Power PA-C 132 [place] [address] Meri Mae, [facility] Garbage Pick Up Worker [address] [place] [address] 05/09/2024 7:00 AM EDT Laboratory [facility] [address] [place] [address] [facility], [facility] [address] [place] [address] 05/23/2024 7:00 AM EDT Laboratory [facility] [address] [place] [address] [address] M[facility], [facility] [address] [place] [address] 05/31/2024 10:00 AM EDT [facility] Visit [facility], [facility] [address] [facility] [place] [address] Peggy De, RN 132 [place] [address] 06/06/2024 7:00 AM EDT Laboratory [facility] [address] [place] [address] [address] Mvmg, [facility] [address] [place] [address] [address] 06/20/2024 7:00 AM EDT Laboratory [facility] [address] [place] [address] [address] Mvmg, [facility] [address] [place] [place] [address] 07/04/2024 7:00 AM EDT Laboratory Lab [facility] [address] [facility] [place], [place] [address] Mvmg, [facility] Draw [address] [facility] [place], [place] [address] 07/18/2024 7:00 AM EDT Laboratory Lab [facility] [address] [facility] [place], [place] [address] Mvmg, [facility] Draw [address] [facility] [place] [address] 08/01/2024 7:00 AM EDT Laboratory Lab [facility] [address] [facility] [place], [place] [address] Mvmg, G[facility] Draw [address] [facility] [place], [place] [address] 08/13/2024 8:00 AM EDT Office Visit Cardiology, [facility] [address] [place] [address] Dominick Benz DO [address] [place] [address] 08/15/2024 7:00 AM EDT Laboratory Lab [facility] [address] [facility] [place], [place] [address] Mvmg, [facility] Draw [address] [facility] [place], [place] [address] 08/29/2024 7:00 AM EST Laboratory [facility] [address] [facility] [place] [address] Mvmg, [facility] Draw [address] [facility] [place] [address] 08/29/2024 8:00 AM EST Hospital Encounter ENDO [facility], Endoscopy Room [facility] [address] [place] [phone] Arnie Shrestha MD [address] [place] [address] 08/29/2024 8:00 AM EST - 08/29/2024 8:30 AM EST Surgery ENDO [facility], Endoscopy Room [facility] 132 [facility] [place] [phone] Arnie Shrestha MD 132 [facility] [place] [address] COLONOSCOPY FLEXIBLE PROXIMAL DIAGNOSTIC 09/02/2024 1:45 PM EST Office Visit Dermatology [facility] 200 [facility] [place] [address] Osvaldo Liu MD 200 [facility] [place] [address] 09/12/2024 7:00 AM EST Laboratory Lab [facility] [address] [place] [address] M[facility], [facility] [address] [place] [address] 09/17/2024 11:15 AM EST Office Visit Urology, [facility] 132 [facility] [place] [address] Kalpesh Funes MD 27 [facility] [address] [place] [address] 09/26/2024 7:00 AM EST Laboratory Lab [facility] [address] [place] [address] Mvmg, [facility] Draw [address] [place] [address] 03/12/2025 3:30 PM EDT Home Visit [facility] at Home [address] [place] [facility] [place] [address] Betina Jacob PA-C [address] [facility] [place] [address] Pending Results Name Type Priority Associated [...] Additional history exists CKD PHOS USE SMARTSET 78315 12/07/202411/23, 12/26/2022, 06/21/2021 Depression Screening 03/07/2025 03/07/2024 CKD HGB USE SMARTSET 07283 04/12/202504/12, 04/11/2024, 04/11/2024, Additional history exists Colonoscopy [...] this encounter Medical Devices Implanted Type Area Electric Tripper Machine Operator Device Identifier Shelf Expiration Date Model / Serial / Lot Lens Intraoc 22.5 - [id number] - [id number] Implanted:Qty: 1 on 05/22/2018 by Jasbir Maurer MD at OR [facility] Right: Eye [employer] 11/22/2022 [id number] / [id number] / [id number] Lens Intraoc 21.0 - [id number] - [id number] Implanted:Qty: 1 on 06/05/2018 by Jasbir Maurer MD at OR [facility] Left: Eye [employer] 12/20/2022 [id number] / [id number] / Duraclip 16mm Xlg Repostn - [id number] Implanted:Qty: 1 on 04/12/2024 by Edilberto Lujan MD at OR [facility] [employer] [id number] 12/08/2024 [id number] / / [id number] Duraclip 16mm Xlg Repostn - [id number] Implanted:Qty: 1 on 04/12/2024 by Eidlberto Lujan MD at OR [facility] [employer] [id number] 12/08/2024 [id number] / / [id number] Duraclip 16mm Xlg Repostn - [id number] Implanted:Qty: 1 on 04/12/2024 by Edilberto Lujan MD at OR [facility] [employer] [id number] 12/08/2024 [id number] / / [id number] documented as of this encounter Visit Diagnoses [...] Agents on File Name Relationship Healthcare Agent [facility] Communication Ashley Jose Spouse Health Care Power of Attor mayela Care Teams Learning And Development Analyst Relationship Specialty Start Date End Date Michael Hinton MD [address] [address] PCP - General Family Medicine 08/07/17 documented as of this encounter
--- OUTSIDE RECORDS SUMMARY | 2024-05-04 16:51 | External Medical Summary ---
Author Name Unknown Address Unknown Organization [facility] [place] [address] [place] [address] Laboratory Report Ordering Provider Test Date Status GUERRERO CHAUHAN 04/11/2024 09:55:00 Final Observation Date Value Abnormality Reference (Units ) Status SYNC LEUKOCYTES IN BLOOD BY AUTOMATED COUNT 04/11/2024 09:55:00 3.98 Below low normal 4.00-10.80 (K/uL) Final Neutrophils/100 leukocytes in Blood by Manual count 04/11/2024 09:55:00 73.0 40.0-75.0 (%) Final Lymphocytes/100 leukocytes in Blood by Manual count 04/11/2024 09:55:00 20.0 18.0-42.0 (%) Final Monocytes/100 leukocytes in Blood by Manual count 04/11/2024 09:55:00 6.0 1.0-11.0 (%) Final Eosinophils/100 leukocytes in Blood by Manual count 04/11/2024 09:55:00 1.0 0.0-6.0 (%) Final Neutrophils [#/volume] in Blood by Manual count 04/11/2024 09:55:00 2.91 1.80-7.70 (K/uL) Final Lymphocytes [#/volume] in Blood by Manual count 04/11/2024 09:55:00 0.80 Below low normal 1.00-4.80 (K/uL) Final Monocytes [#/volume] in Blood by Manual count 04/11/2024 09:55:00 0.24 0.00-1.10 (K/uL) Final Eosinophils [#/volume] in Blood by Manual count 04/11/2024 09:55:00 0.04 0.00-0.70 (K/uL) Final Nucleated erythrocytes/100 leukocytes [Ratio] in Blood by Automated count 04/11/2024 09:55:00 Final Performing Location [facility] [place] [address]
--- OUTSIDE RECORDS SUMMARY | 2024-05-04 16:52 | External Medical Summary | Summary of Care ---
Author Name Unknown Organization [facility] Address [address] [place] [facility] [place] [place] [address] Phone [phone] Care Team Providers Care Sample Processor Name Role Phone Michael Hinton MD Primary Care Provider [phone] Reason for Visit * Reason Onset Date Comments [facility]: Maintenance 03/30/2024 Encounter Details Date Type Department Care Team (Late st Contact Info) Description 03/30/2024 11:30 AM EDT Scheduled Telephone [facility], [facility] [address] [place] [address] [facility], Nurse [facility] [address] [place] [address] Allergies Active Allergy Reactions Criticality Noted Date Comments Fabiano Inhibitors Cough 06/09/2017 Carbidopa W-Levodopa 03/17/2021 Constipation Nsaids Rash 05/17/2018 Contraindicated per hydroelectric station chief documented as of this encounter (statuses as of 03/30/2024) Medications Medication Sig Dispensed Refills Start Date [...] mitral valve regurgitation,Coron daniel artery disease involving [place] coronary artery of [place] heart without angina pectoris,Stage 3b chronic kidney [...] bedtime. Do all this for 7 days. 21 Capsule 03/27/2024 04/03/2024 Active documented as of this encounter (statuses as of 03/30/2024) Active Problems Problem Noted Date Diagnosed Date [...] 07/28/2021 Last Assessment & Plan: Follows with [facility] hematology Routine labs monitored by [...] knees 03/21/2018 Coronary artery disease invo lving [place] coronary artery of [place] heart without angina pectoris 03/21/2018 Last Assessment [...] as of this encounter (statuses as of 03/30/2024) Resolved Problems Problem Noted Date Diagnosed Date [...] scanned document from 11/13/[address] bains, [facility] [place]. Coronary artery disease due [...] as of this encounter (statuses as of 03/30/2024) Immunizations Name Administration Dates Next Due COVID-19 [...] money to buy more. Never true 11/02/19 Within the past 12 months, t he [...] Telephone Encounter - Esperanza Plummer RN - 03/30/2024 11:50 AM EDT Images from the original note were not included. [facility] Call [facility] Subprogram: Primary Care at Home Follow Up Call Type: Weekend Call Acute issue requiring follow-up call: Other: follow up on heme onc appt. diarrhea, cellulitis Objective: 03/27/2024 7:45 AM 03/20/2024 12:31 PM 03/14/2024 12:05 PM 03/13/2024 10:14 AM 03/07/2024 4:22 PM VITALS ACROSS ENCOUNTERS BP 100/58 152/74 140/65 120/60 118/78 Pulse 72 75 86 95 78 Weight 76.7 kg 73.7 kg 77.1 kg BMI 28.29 BMI 28.12 kg/m2 27.02 kg/m2 28.29 kg/m2 Remote Patient Monitoring: AMC Scale: Has not weighed Oxygen Needs: NO CHANGE from baseline supplemental oxygen needs DME Needs: NO DME needs identified Medications: New medication(s) added: cephalexin 500 mg Medication(s) discontinued: clindamycin due to causing nausea for the pt. Hx of Iron deficiency anemia, DM, CHF, CKD, CAD s/p CABG,HTN, A Fib, GERD,, Parkinson's disease, dementia Pt follows with Heme onc for HUNTER and gets regular transfusions Subjective: Condition Status: [facility] Current Concerns: Call to patient. No answer, left message requesting a return call, toll free number provided in message Disposition: Routed to [facility] and/or [facility] Care Team for further advice and Follow up call scheduled for tomorrow with [employer] Pantry Attendant Future Visits Scheduled: Future Appointments-next 60 days Date/Time Provider Specialty Dept Phone 04/05/2024 11:00 AM Peggy De RN [facility] [phone] 04/11/2024 7:00 AM [facility] Processing [phone] 04/23/2024 7:15 AM [facility] [phone] 05/08/2024 2:30 PM Meri Mae, Community [facility] [employer] Programmer; Berny Power PA-C [facility] [phone] 05/09/2024 7:00 AM [facility] Processing [phone] 05/23/2024 7:00 AM [facility] Processing [phone] 06/06/2024 7:00 AM [facility] Processing [phone] 06/20/2024 7:00 AM [facility] Processing [phone] 07/04/2024 7:00 AM [facility] Processing [phone] 07/18/2024 7:00 AM [facility] Processing [phone] 08/01/2024 7:00 AM [facility] Processing [phone] 08/13/2024 8:00 AM (Arrive by 7:45 AM) Dominick Benz, DO Cardiology [phone] 08/15/2024 7:00 AM [facility] Processing [phone] 08/29/2024 7:00 AM [facility] Processing [phone] 09/12/2024 7:00 AM [facility] Processing [phone] 09/17/2024 11:15 AM (Arrive by 11:00 AM) Kalpesh Funes MD Urology [phone] 09/26/2024 7:00 AM [facility] Laboratory Processing [phone] 03/12/2025 3:30 PM Betina Jacob PA-C Family [facility] [phone] Esperanza Plummer, RN documented in this encounter Plan of Treatment Upcoming Encounters Date Type Department Care Team (Late st Contact Info) Description 03/31/2024 8:30 AM EDT Scheduled Telephone [facility], [facility] [address] [place] [address] [facility], Nurse [facility] [address] [place] [address] 04/05/2024 11:00 AM EDT Home Visit [facility], [facility] [address] [place] [address] [place] [address] Peggy De RN [address] [place] [address] 04/11/2024 7:00 AM EDT Laboratory Lab Mobile Phlebotomy [facility] [address] [place] [address] [facility] Draw [address] [place] [address] 04/12/2024 8:38 AM EDT Hospital Encounter OR [facility], Operating Room, [facility] - 4th Floor [address] [place] [address] Edilberto Lujan MD [address] [place] [address] 04/12/2024 8:38 AM EDT - 04/12/2024 9:40 AM EDT Surgery OR [facility], Operating Room, [facility] - 4th Floor [address] [place] [address] Edilberto Lujan MD [facility] [place] [address] SMALL INTESTINE ENDOSCOPY DIAGNOSTIC 04/23/2024 7:15 AM EDT Laboratory [facility] Phlebotomy [facility] [address] [place] [address] [facility] Draw [address] [place] [address] 05/08/2024 2:30 PM EDT Telemedicine [facility], [facility] [place] [address] Berny Power PA-C [address] [place] [address] Meri Mae, Community Health [employer] Programmer [address] [place] [address] 05/09/2024 7:00 AM EDT Laboratory Lab Mobile Phlebotomy [facility] [address] [place] [address] [address] [facility] Draw [address] [place] [address] 05/23/2024 7:00 AM EDT Laboratory Lab Mobile Phlebotomy [facility] [address] [place] [address] [facility] Draw [address] [place] [address] [address] 06/06/2024 7:00 AM EDT Laboratory Lab Mobile Phlebotomy [facility] [address] [place] [address] [address] [facility] Draw [address] [place] [address] 06/20/2024 7:00 AM EDT Laboratory Lab Mobile Phlebotomy [facility] [address] [place] [address] [facility] Draw [address] [facility] [place] [address] 07/04/2024 7:00 AM EDT Laboratory Lab Mobile Phlebotomy [facility] [address] [place] [address] [facility] Draw [address] [facility] [place] [address] 07/18/2024 7:00 AM EDT Laboratory Lab Mobile Phlebotomy [facility] [address] [facility] [place] [address] [facility] Draw [address] [facility] [place] [address] 08/01/2024 7:00 AM EDT Laboratory Lab Mobile Phlebotomy [facility] [address] [place], [place] [address] [facility] Draw [address] [facility] [place] [address] 08/13/2024 8:00 AM EDT Office Visit Cardiology, [facility] [address] [facility] [place] [address] Dominick Benz, [address] [place] [address] 08/15/2024 7:00 AM EDT Laboratory Lab Mobile Phlebotomy [facility] [address] [place] [address] [facility] [address] [facility] [place] [address] 08/29/2024 7:00 AM EST Laboratory Lab Mobile Phlebotomy [facility] [address] [place] [address] [facility] Draw [address] [place] [address] 08/29/2024 8:00 AM EST Hospital Encounter ENDO [facility], Endoscopy Room [facility] [address] [place] [id number] Arnie Shrestha MD [address] [place] [address] 08/29/2024 8:00 AM EST - 08/29/2024 8:30 AM EST Surgery ENDO [facility], Endoscopy Room [facility] [address] [place] [phone] Arnie Shrestha MD [address] [place] [address] COLONOSCOPY FLEXIBLE PROXIMAL DIAGNOSTIC 09/12/2024 7:00 AM EST Laboratory Lab Mobile Phlebotomy [facility] [address] [place] [address] [facility], Gm Mobile Home Draw [address] [facility] [place] [address] 09/17/2024 11:15 AM EST Office Visit Urology, [facility] [address] [place] [address] Kalpesh Funes MD [address] [place] [address] 09/26/2024 7:00 AM EST Laboratory Lab Mobile Phlebotomy [facility] [address] [place] [address] [facility] Draw [address] [place] [address] 03/12/2025 3:30 PM EDT [facility] [address] [facility] [id number] Betina Jacob PA-C [address] [facility] [id number] Scheduled Procedures Name Priority Associated Diagnoses Date/Ti [...] Additional history exists CKD PHOS USE SMARTSET 44935 12/07/202411/23, 12/26/2022, 06/21/2021 Depression Screening 03/07/2025 03/07/2024 CKD HGB USE SMARTSET 84880 03/28/202503/28, 03/28/2024, 03/14/2024, Additional history exists Colonoscopy [...] this encounter Medical Devices Implanted Type Area Posting Specialist Device Identifier Shelf Expiration Date Model / Serial / Lot Lens Intraoc 22.5 - [id number] - [id number] Implanted:Qty: 1 on 05/22/2018 by Jasbir Maurer MD at OR [facility] Right: Eye [employer] 11/22/2022 [id number] / [id number] / [id number] Lens Intraoc 21.0 - [id number] - [id number] Implanted:Qty: 1 on 06/05/2018 by Jasbir Maurer MD at OR [facility] Left: Eye [employer] 12/20/2022 [id number] / [id number] / documented as of this encounter Advance [...] File Name Relationship Healthcare Agent [facility] p Communication Ashley Jose Spouse Health Care Power of Attor mayela Care Teams Sample Processor Relationship Specialty Start Date End Date Michael Hinton MD [address] [place] [address] PCP - General Family Medicine 08/07/17 documented as of this encounter
--- OUTSIDE RECORDS SUMMARY | 2024-05-04 16:52 | External Medical Summary | Summary of Care ---
Author Name Unknown Organization [facility] Address [address] [place] [address] Phone [phone] Care Team Providers Care Honing Machine Set Up Operator Tool Name Role Phone Michael Hinton MD Primary Care Provider [phone] Encounter Details Date Type Department Care Team (Late st Contact Info) Description 03/28/2024 Telephone Gastroenterology, [facility] [address] [place] [address] Edilberto Lujan MD [address] [place] [address] Allergies Active Allergy Reactions Criticality Noted Date Comments Fabiano Inhibitors Cough 06/09/2017 Carbidopa W-Levodopa 03/17/2021 Constipation Nsaids Rash 05/17/2018 Contraindicated per motion picture critic documented as of this encounter (statuses as of 03/29/2024) Medications Medication Sig Dispensed Refills Start Date [...] mitral valve regurgitation,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,Stage 3b chronic kidney [...] as of this encounter (statuses as of 03/29/2024) Active Problems Problem Noted Date Diagnosed Date [...] 07/28/2021 Last Assessment & Plan: Follows with [facility] hematology Routine labs monitored by hem/onc Update [...] knees 03/21/2018 Coronary artery disease invo lving [place] coronary artery of [place] heart without angina pectoris 03/21/2018 Last Assessment [...] as of this encounter (statuses as of 03/29/2024) Resolved Problems Problem Noted Date Diagnosed Date [...] scanned document from 11/13/[address] bains [facility]. 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y [...] as of this encounter (statuses as of 03/29/2024) Immunizations Name Administration Dates Next Due COVID-19 [...] encounter Miscellaneous Notes * Telephone Encounter - Odessa Cobb OSA - 03/29/2024 3:35 PM EDT lmm * Telephone Encounter - Anaya Aldridge RN - 03/29/2024 2:56 PM EDT April 12 in the OR with Abdulsamad. Please make it the 3rd case. Thanks, Anaya Aldridge RN * Telephone Encounter - Odessa Cobb OSA - 03/29/2024 10:19 AM EDT Alejandra, rashawn advise * Telephone Encounter - Allison Oliveira RN - 03/28/2024 3:48 PM EDT Spoke to . Made her aware. She verbalizes full understanding. Spoke to Charmaine. They will reach out to patient whenever they know what availability they have. * Telephone Encounter - Edilberto Lujan MD - 03/28/2024 3:26 PM EDT Please inform the patient that his VCE showed a small bleeding AVM which explains his anemia and melena. Please schedule an urgent single balloon enteroscopy with either me or at [facility]. documented in this encounter Plan of Treatment Upcoming Encounters Date Type Department Care Team (Late st Contact Info) Description 03/30/2024 11:30 AM EDT Scheduled Telephone [facility] [place], [facility] [address] [place] [address] [facility], Nurse [facility] [address] [place] [address] [place] [address] 04/05/2024 11:00 AM EDT Home Visit [facility] [place], [facility] [address] [place] [address] Peggy De RN [address] [place] [address] 04/11/2024 7:00 AM EDT Laboratory Lab Mobile Phlebotomy [facility] [address] [facility] [facility] [place] [address] [facility], [facility] Draw [address] [facility] [address] 04/23/2024 7:15 AM EDT Laboratory Lab Mobile Phlebotomy [facility] [address] [place] [address] [facility], [facility] Draw [address] [place] [address] 05/08/2024 2:30 PM EDT Telemedicine [facility], [facility] [address] [place] [address] [place] [address] [address] Berny Power PA-C [address] [place] [address] Meri Mae, Community Health Director [facility] [address] [place] [address] 05/09/2024 7:00 AM EDT Laboratory Lab Mobile Phlebotomy [facility] [address] [place] [address] M[facility], [facility] Draw [address] [facility] [place], [place] [address] 05/23/2024 7:00 AM EDT Laboratory Lab Mobile Phlebotomy [facility] [address] [facility] [place], [place] [address] [facility], [facility] Draw [address] [facility] [place], [place] [address] 06/06/2024 7:00 AM EDT Laboratory Lab Mobile Phlebotomy [facility] [address] [facility] [place], [place] [address] M[facility], [facility] Draw [address] [facility] [place] [address] 06/20/2024 7:00 AM EDT Laboratory Lab Mobile Phlebotomy [facility] [address] [facility] [place], [place] [address] [facility], [facility] Draw [address] [facility] [place], [place] [address] 07/04/2024 7:00 AM EDT Laboratory Lab Mobile Phlebotomy [facility] [address] [facility] [place], [place] [address] [facility], [facility] Draw [address] [place] [address] 07/18/2024 7:00 AM EDT Laboratory Lab Mobile Phlebotomy [facility] [address] [facility] [place], [place] [address] M[facility], [facility] Draw [address] [facility] [place], [place] [address] 08/01/2024 7:00 AM EDT Laboratory Lab Mobile Phlebotomy [facility] [address] [facility] [place], [place] [address] [facility], [facility] Mobile Home Draw [address] [place] [address] 08/13/2024 8:00 AM EDT Office Visit Cardiology, [facility] [address] [place] [address] Dominick Benz, [address] [place] [address] 08/15/2024 7:00 AM EDT Laboratory Lab Mobile Phlebotomy [facility] [address] [place] [address] [facility], [facility] Draw [address] [place] [address] 08/29/2024 7:00 AM EST Laboratory Lab Mobile Phlebotomy [facility] [address] [place] [address] [facility], [facility] Draw [address] [place], [place] [address] 08/29/2024 8:00 AM EST Hospital Encounter ENDO [facility], Endoscopy Room [facility] [address] [place] [phone] Arnie Shrestha MD [address] [place] [address] 08/29/2024 8:00 AM EST - 08/29/2024 8:30 AM EST Surgery ENDO [facility], Endoscopy Room [facility] [address] [place] [phone] Arnie Shrestha MD [address] [place] [address] COLONOSCOPY FLEXIBLE PROXIMAL DIAGNOSTIC 09/12/2024 7:00 AM EST Laboratory [facility] Phlebot[facility] [address] [place] [address] [facility], [facility] Draw [address] [place], [place] [address] 09/17/2024 11:15 AM EST Office Visit Urology, [facility] [address] [place] [address] Kalpesh Funes MD [address] [place] [address] 09/26/2024 7:00 AM EST Laboratory Lab [facility] Phlebotomy [facility] [address] [facility] [place] [address] [facility], [facility] Draw [address] [facility] [place] [address] 03/12/2025 3:30 PM EDT Home Visit [facility] at Home [address] [place] [address] Betina Jacob PA-C [address] [place] [address] Scheduled Procedures Name Priority Associated [...] Additional history exists CKD PHOS USE SMARTSET 56826 12/07/202411/23, 12/26/2022, 06/21/2021 Depression Screening 03/07/2025 03/07/2024 CKD HGB USE SMARTSET 29133 03/28/202503/28, 03/28/2024, 03/14/2024, Additional history exists Colonoscopy [...] this encounter Medical Devices Implanted Type Area Cook House Supervisor Device Identifier Shelf Expiration Date Model / Serial / Lot Lens Intraoc 22.5 - [id number] - [id number] Implanted:Qty: 1 on 05/22/2018 by Jasbir Maurer MD at OR [facility] Right: Eye [employer] 11/22/2022 [id number] / [id number] / [id number] Lens Intraoc 21.0 - [id number] - [id number] Implanted:Qty: 1 on 06/05/2018 by Jasbir Maurer MD at OR [facility] Left: Eye [employer]OM[employer] 12/20/2022 [id number] / [id number] / documented as of this encounter Advance [...] Care Power of Attor mayela Care Teams Honing Machine Set Up Operator Tool Relationship Specialty Start Date End Date Michael Hinton MD [address] [place] [address] PCP - General Family Medicine 08/07/17 documented as of this encounter
--- OUTSIDE RECORDS SUMMARY | 2024-05-04 16:52 | External Medical Summary | Summary of Care ---
Author Name Unknown Organization [facility] Address [address] [place] [address] Phone [phone] Care Team Providers Care Banking Attorney Name Role Phone Michael Hinton MD Primary Care Provider [phone] Encounter Details Date Type Department Care Team (Late st Contact Info) Description 03/28/2024 Telephone Gastroenterology, [facility] [address] [place] [address] Edilberto Lujan MD [address] [place] [address] Allergies Active Allergy Reactions Criticality Noted Date Comments Fabiano Inhibitors Cough 06/09/2017 Carbidopa W-Levodopa 03/17/2021 Constipation Nsaids Rash 05/17/2018 Contraindicated per ring making machine operator documented as of this encounter (statuses [...] mitral valve regurgitation,Coron daniel artery disease involving eek coronary artery of eek heart without angina pectoris,Stage 3b chronic kidney [...] 07/28/2021 Last Assessment & Plan: Follows with [facility] hematology Routine labs monitored [...] knees 03/21/2018 Coronary artery disease invo lving eek coronary artery of eek heart without angina pectoris 03/21/2018 Last Assessment [...] Encounter - Odessa Cobb OSA - 03/29/2024 4:27 PM EDT Case added 04/12 * Telephone Encounter - Odessa Cobb OSA - 03/29/2024 3:35 PM EDT lmm * Telephone Encounter - Anaya Aldridge RN - 03/29/2024 2:56 PM EDT April 12 in the OR with Le. Please make it the 3rd case. Thanks, [...] balloon enteroscopy with either me or at [facility]. documented in this encounter Plan of Treatment Upcoming Encounters Date Type Department Care Team (Late st Contact Info) Description 03/30/2024 11:30 AM EDT Scheduled Telephone [facility], [facility] [address] [place] [address] [facility], Nurse [facility] [address] [place] [address] 04/05/2024 11:00 AM EDT Home Visit [facility], [facility] [address] [address] Peggy De RN [address] [place] [address] 04/11/2024 7:00 AM EDT Laboratory [facility] [address] [place] [address] [facility] [address] [place] [address] 04/12/2024 8:38 AM EDT Hospital Encounter OR [facility], Operating Room, [facility] - 4th Floor [address] [place] [address] Edilberto Lujan MD [address] [place] [address] 04/12/2024 8:38 AM EDT - 04/12/2024 9:40 AM EDT Surgery OR GL, Operating Room, [facility] - 4th Floor [address] [facility] [place] [address] Edilberto Lujan MD [address] [place] [address] SMALL INTESTINE ENDOSCOPY DIAGNOSTIC 04/23/2024 7:15 AM EDT Laboratory [facility] [address] [place] [place] [address] [facility] [address] [place] [address] 05/08/2024 2:30 PM EDT [facility]icine [facility], [facility] [address] [place] [address] Berny Power PA-C [address] [place] [address] Meri Mae, [facility] Cyber Systems Administrator [address] [place] [address] 05/09/2024 7:00 AM EDT Laboratory [facility] [address] [place] [address] [facility] [address] [place] [address] 05/23/2024 7:00 AM EDT Laboratory [facility] [address] [place] [place] [address] [facility] [address] [address] 06/06/2024 7:00 AM EDT Laboratory [facility] [address] [place] [address] [facility] [address] [place] [address] 06/20/2024 7:00 AM EDT Laboratory [facility] [address] [place] [address] [facility] [address] [place] [address] 07/04/2024 7:00 AM EDT Laboratory [facility] [address] [place] [address] M[facility] [address] [place] [address] 07/18/2024 7:00 AM EDT Laboratory [facility] [address] [place] [address] M[facility], [facility] [address] [place] [address] 08/01/2024 7:00 AM EDT Laboratory [facility] [address] [place] [address] [facility] [address] [place] [address] 08/13/2024 8:00 AM EDT Office Visit Cardiology, [facility] [place] [address] Dominick Benz, DO [address] [place] [address] 08/15/2024 7:00 AM EDT Laboratory [facility] [address] [place] [address] [facility] [address] [place] [address] 08/29/2024 7:00 AM EST [facility] [address] [place] [address] M[facility], [facility] [address] [employer] [place] [address] 08/29/2024 8:00 AM EST Hospital Encounter ENDO [facility], Endoscopy Room [facility] [address] [place] [phone] Arnie Shrestha MD [address] [place] [address] 08/29/2024 8:00 AM EST - 08/29/2024 8:30 AM EST Surgery ENDO [facility], Endoscopy Room [facility] [address] [place] [phone] Arnie Shrestha MD [address] [place] [address] COLONOSCOPY FLEXIBLE PROXIMAL DIAGNOSTIC 09/12/2024 7:00 AM EST Laboratory [facility] [address] [facility] [place] [address] Mvmg, [facility] [address] [facility] [place] [address] 09/17/2024 11:15 AM EST Office Visit Urology, [facility] [place] [address] Kalpesh Funes MD [address] [place] [address] 09/26/2024 7:00 AM EST Laboratory [facility] [address] [facility] [place] [address] M[facility], [facility] [address] [facility] [place] [address] 03/12/2025 3:30 PM EDT Home Visit Care at Home [address] [place] [address] Betina Jacob PA-C [address] [place] [address] Scheduled Procedures Name Priority Associated [...] Additional history exists CKD PHOS USE SMARTSET 57017 12/07/202411/23, 12/26/2022, 06/21/2021 Depression Screening 03/07/2025 03/07/2024 CKD HGB USE SMARTSET 07362 03/28/202503/28, 03/28/2024, 03/14/2024, Additional history exists Colonoscopy [...] this encounter Medical Devices Implanted Type Area Tie Cutter Device Identifier Shelf Expiration Date Model / Serial / Lot Lens Intraoc 22.5 - [id number] - [id number] Implanted:Qty: 1 on 05/22/2018 by Jasbir Maurer MD at OR [facility] Right: Eye [employer] 11/22/2022 [id number] / [id number] / [id number] Lens Intraoc 21.0 - [id number] - [id number] Implanted:Qty: 1 on 06/05/2018 by Jasbir Maurer MD at OR [facility] Left: Eye [employer]OM[employer] 12/20/2022 [id number] / [id number] / documented as of this encounter Advance [...] Agents on File Name Relationship Healthcare Agent [facility] p Communication Ahsley Meek Jose Spouse Health Care Power of Attor porter Care Teams Banking Attorney Relationship Specialty Start Date End Date Michael Hinton MD [address] [place] [address] PCP - General Family Medicine 08/07/17 documented as of this encounter
--- OUTSIDE RECORDS SUMMARY | 2024-05-04 16:52 | External Medical Summary | Summary of Care ---
Author Name Unknown Organization [facility] Address [address] [place] [address] Phone [phone] Care Team Providers Care Brush And Broom Clipper Name Role Phone Michael Hinton MD Primary Care Provider [phone] Encounter Details Date Type Department Care Team (Late st Contact Info) Description 03/28/2024 Telephone Gastroenterology, [facility] [address] [place] [address] Edilberto Lujan MD [address] [facility] [place] [address] Allergies Active Allergy Reactions Criticality Noted Date Comments Fabiano Inhibitors Cough 06/09/2017 Carbidopa W-Levodopa 03/17/2021 Constipation Nsaids Rash 05/17/2018 Contraindicated per housing court judge documented as of this encounter (statuses as [...] mitral valve regurgitation,Coron daniel artery disease involving lone pine coronary artery of lone pine heart without angina pectoris,Stage 3b chronic kidney [...] 07/28/2021 Last Assessment & Plan: Follows with [facility] hematology Routine labs monitored [...] knees 03/21/2018 Coronary artery disease invo lving lone pine coronary artery of lone pine heart without angina pectoris 03/21/2018 Last Assessment [...] encounter Miscellaneous Notes * Telephone Encounter - Anaya Aldridge RN [...] balloon enteroscopy with either me or at [facility]. documented in this encounter Plan of Treatment Upcoming Encounters Date Type Department Care Team (Late st Contact Info) Description 03/30/2024 11:30 AM EDT Scheduled Telephone [facility], [facility] [address] [facility] [place] [address] [facility], Nurse [facility] [address] [facility] [place] [address] 04/05/2024 11:00 AM EDT Home Visit [facility], [facility] [address] [facility] [place] [address] Peggy De RN 132 [facility] [place] [address] 04/11/2024 7:00 AM EDT Laboratory Lab [facility] [address] [place] [address] M[facility], [facility] Draw [address] [place] [address] 04/23/2024 7:15 AM EDT Laboratory [facility] [address] [place] [address] Mvmg, [facility] Draw [address] [place] [address] 05/08/2024 2:30 PM EDT Telemedicine [facility], [facility] [address] [place] [address] Berny Power PA-C [address] [place] [address] Meri Mae, [facility] [employer] [address] [place] [address] 05/09/2024 7:00 AM EDT Laboratory [facility] [address] [place] [address] Mvmg, [facility] [address] [place] [address] 05/23/2024 7:00 AM EDT Laboratory [facility] [address] [place] [address] M[facility], [facility] [address] [facility] [place] [address] 06/06/2024 7:00 AM EDT Laboratory [facility] [address] [place] [address] M[facility], [facility] [address] [facility] [address] 06/20/2024 7:00 AM EDT Laboratory [facility] [address] [place] [address] Mvmg, [facility] [address] [facility] [address] 07/04/2024 7:00 AM EDT Laboratory [facility] [address] [place] [address] M[facility], [facility] [address] [facility] [place] [address] 07/18/2024 7:00 AM EDT Laboratory [facility] [address] [place] [address] Mv[facility], [facility] [address] [facility] [place] [address] 08/01/2024 7:00 AM EDT Laboratory [facility] [address] [place] [address] M[facility], [facility] [address] [facility] [address] 08/13/2024 8:00 AM EDT Office Visit Cardiology, [facility] [address] [place] [address] Dominick Benz, [address] [place] [address] 08/15/2024 7:00 AM EDT Laboratory [facility] [address] [facility] [place] [address] M[facility], [facility] [address] [facility] [address] 08/29/2024 7:00 AM EST [facility] [address] [facility] [place] [address] Mvmg, [facility] Draw [address] [facility] [place] [address] 08/29/2024 8:00 AM EST Hospital Encounter ENDO [facility], Endoscopy Room [facility] [address] [place] [phone] Arnie Shrestha MD [address] [place] [address] 08/29/2024 8:00 AM EST - 08/29/2024 8:30 AM EST Surgery ENDO [facility], Endoscopy Room [facility] [address] [place] [phone] Arnie Shrestha MD [address] [place] [address] COLONOSCOPY FLEXIBLE PROXIMAL DIAGNOSTIC 09/12/2024 7:00 AM EST Laboratory [facility] [address] [facility] [place], [place] [address] Mvmg, Gml [facility] Draw [address] [facility] [place] [address] 09/17/2024 11:15 AM EST Office Visit Urology, [facility] [address] [place] [address] Kalpesh Funes MD [address] [address] [place] [address] 09/26/2024 7:00 AM EST Laboratory [facility] [address] [facility] [place] [address] [facility], [facility] [address] [facility] [place] [address] 03/12/2025 3:30 PM EDT Home Visit [facility] at Home [address] [place] [address] Betina Jacob PA-C [address] [place] [address] Scheduled Procedures Name Priority Associated [...] Additional history exists CKD PHOS USE SMARTSET 68002 12/07/202411/23, 12/26/2022, 06/21/2021 Depression Screening 03/07/2025 03/07/2024 CKD HGB USE SMARTSET 14957 03/28/202503/28, 03/28/2024, 03/14/2024, Additional history exists Colonoscopy [...] this encounter Medical Devices Implanted Type Area Manufacturing Systems Engineer Device Identifier Shelf Expiration Date Model / Serial / Lot Lens Intraoc 22.5 - [id number] - [id number] Implanted:Qty: 1 on 05/22/2018 by Jasbir Maurer MD at OR [facility] Right: Eye [employer] 11/22/2022 [id number] / [id number] / [id number] Lens Intraoc 21.0 - [id number] - [id number] Implanted:Qty: 1 on 06/05/2018 by Jasbir Maurer MD at OR [facility] Left: Eye [employer] 12/20/2022 [id number] / [id number] / documented as of this encounter Advance [...] Agents on File Name Relationship Healthcare Agent [facility] Danny Jose Spouse Health Care Power of Attor mayela Care Teams Brush And Broom Clipper Relationship Specialty Start Date End Date Michael Hinton MD [address] [place] [address] PCP - General Family Medicine 08/07/17 documented as of this encounter
--- OUTSIDE RECORDS SUMMARY | 2024-05-04 16:52 | External Medical Summary | Summary of Care ---
Author Name Unknown Organization [facility] Address [address] [place] [place] [address] Phone [phone] Care Team Providers Care Field Court Researcher Name Role Phone Michael Hinton MD Primary Care Provider [phone] Reason for Visit * Reason Onset Date Comments [facility]: Maintenance 04/01/2024 Encounter Details Date Type Department Care Team (Late st Contact Info) Description 04/01/2024 12:00 PM EDT Scheduled Telephone [facility], [facility] [address] [facility] [place] [address] Coordinator, [facility] [address] [facility] [place] [address] Allergies Active Allergy Reactions Criticality Noted Date Comments Fabiano Inhibitors Cough 06/09/2017 Carbidopa W-Levodopa 03/17/2021 Constipation Nsaids Rash 05/17/2018 Contraindicated per business mgr documented as of this encounter (statuses as of 04/01/2024) Medications Medication Sig Dispensed Refills Start Date End Date Status Glucose Blood (ONETOUCH VERIO) STRPIndications:Typ e 2 diabetes mellitus with hemoglobin A1c goal of less than 8.0% ([facility]) Use up to 4 times [...] mitral valve regurgitation,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,Stage 3b chronic kidney [...] as of this encounter (statuses as of 04/01/2024) Active Problems Problem Noted Date Diagnosed Date [...] 07/28/2021 Last Assessment & Plan: Follows with [facility] hematology Routine labs monitored by hem/onc Update [...] knees 03/21/2018 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y [...] as of this encounter (statuses as of 04/01/2024) Immunizations Name Administration Dates Next Due COVID-19 [...] Telephone Encounter - Esperanza Plummer RN - 04/01/2024 10:34 AM EDT [facility] Telephonic Nurse Follow-Up Call [facility] Subprogram: [facility] Follow Up Call Type: Routine follow up call / Status Check Acute issue requiring follow-up call: Other: f/u nausea, diarrhea and cellulitis of BLE--hem/onc appt 03/29 Objective: 03/27/2024 7:45 AM 03/20/2024 12:31 PM 03/14/2024 12:05 PM 03/13/2024 10:14 AM 03/07/2024 4:22 PM [facility] ACROSS ENCOUNTERS BP 100/58 152/74 140/65 120/60 118/78 Pulse 72 75 86 95 78 Weight 76.7 kg 73.7 kg 77.1 kg BMI 28.29 BMI 28.12 kg/m2 27.02 kg/m2 28.29 kg/m2 [place] [facility] [place]: last weight was 03/26/24 Oxygen Needs: NO supplemental oxygen needs identified DME Needs: NO DME needs identified Medications: No medication or dose adjustments made during acute episode New medication(s) added: cephalexin 500 mg clindamycin due to causing nausea for the pt. Subjective: Condition Status: Symptoms resolved and back to baseline Current Concerns: Spoke with spouse who reports Jesus is doing so much better since stopping the Clindamycin, nausea and diarrhea has resolved completely, was seen recently in the ED for a blood transfusion and the ED doctor looked at his BLE's and reports they looked good, spouse never did poultry picker Cephalexin, no open areas and swelling has subsided. Patient feeling really good, color is back, denies any fever/chills, appetite is good, is urinating wnls, bowels are moving. Disposition: RNCM visit scheduled Future Visits Scheduled: Future Appointments-next 60 days Date/Time Provider Specialty Dept Phone 04/01/2024 12:00 PM CoordinatorSnehal [facility] [phone] 04/05/2024 11:00 AM Peggy De RN [facility] [phone] 04/11/2024 7:00 AM [facility] [phone] 04/23/2024 7:15 AM [facility] [phone] 05/08/2024 2:30 PM Meri Mae, Community Health Real Estate Agent; Berny Power PA-C [facility] [phone] 05/09/2024 7:00 AM [facility] [phone] 05/23/2024 7:00 AM [facility] [phone] 06/06/2024 7:00 AM [facility] [phone] 06/20/2024 7:00 AM [facility] [phone] 07/04/2024 7:00 AM [facility] [phone] 07/18/2024 7:00 AM [facility] [phone] 08/01/2024 7:00 AM [facility] [phone] 08/13/2024 8:00 AM (Arrive by 7:45 AM) Dominick Benz, DO Cardiology [phone] 08/15/2024 7:00 AM [facility] [phone] 08/29/2024 7:00 AM [facility] [phone] 09/12/2024 7:00 AM [facility] [phone] 09/17/2024 11:15 AM (Arrive by 11:00 AM) Kalpesh Funes MD Urology [phone] 09/26/2024 7:00 AM [facility] [phone] 03/12/2025 3:30 PM Betina Jacob PA-C Family Medicine [phone] Esperanza Plummer, RN documented in this encounter Plan of Treatment Upcoming Encounters Date Type Department Care Team (Late st Contact Info) Description 04/05/2024 11:00 AM EDT Home Visit [facility] at [facility] [address] [address] Peggy De, RN [address] [place] [address] 04/11/2024 7:00 AM EDT Laboratory Lab Mobile Phlebotomy [facility] [address] [facility] [place] [address] [facility] [address] [facility] [place] [address] 04/12/2024 8:38 AM EDT Hospital Encounter OR [facility], Operating Room, [facility] - 4th Floor [address] [place] [address] Edilberto Lujan MD [address] [place] [address] 04/12/2024 8:38 AM EDT - 04/12/2024 9:40 AM EDT Surgery OR [facility], Operating Room, [facility] - 4th Floor [address] [place] [address] Edilberto Lujan MD [address] [place] [address] SMALL INTESTINE ENDOSCOPY DIAGNOSTIC 04/23/2024 7:15 AM EDT Laboratory Lab [facility] Phlebotomy [facility] [address] [place] [address] [facility] [address] [place] [address] [address] 05/08/2024 2:30 PM EDT Telemedicine [facility], [facility] [address] [place] [address] Berny Power PA-C [address] [place] [address] Meri Mae, Community Health Real Estate Agent [address] [place] [address] 05/09/2024 7:00 AM EDT Laboratory Lab Mobile Phlebotomy [facility] [address] [place] [address] [facility] [address] [place] [address] [address] 05/23/2024 7:00 AM EDT Laboratory Lab [facility] Phlebotomy [facility] [address] [place] [address] [address] [facility] [address] [place] [address] [address] 06/06/2024 7:00 AM EDT Laboratory Lab Mobile Phlebotomy [facility] [address] [place] [address] [facility] [address] [place] [address] 06/20/2024 7:00 AM EDT Laboratory Lab Mobile Phlebotomy [facility] [address] [place] [address] [facility] [address] [place] [address] 07/04/2024 7:00 AM EDT Laboratory Lab Mobile Phlebotomy [facility] [address] [place], [place] [address] [facility] [address] [place] [address] 07/18/2024 7:00 AM EDT Laboratory Lab Mobile Phlebotomy [facility] [address] [place] [address] [facility] [address] [place] [address] 08/01/2024 7:00 AM EDT Laboratory Lab Mobile Phlebotomy [facility] [address] [place], [place] [address] [facility] [address] [place], [place] [address] 08/13/2024 8:00 AM EDT Office Visit Cardiology, [facility] [address] [place] [address] Dominick Benz, DO [address] [place] [address] 08/15/2024 7:00 AM EDT Laboratory Lab Mobile Phlebotomy [facility] [address] [place], [place] [address] [facility] [address] [place] [address] 08/29/2024 7:00 AM EST Laboratory Lab Mobile Phlebotomy [facility] [address] [place] [address] [facility] [address] [place], [place] [address] 08/29/2024 8:00 AM EST Hospital Encounter ENDO [facility], Endoscopy Room [facility] [address] [place] [phone] Arnie Shrestha MD [address] [place] [address] 08/29/2024 8:00 AM EST - 08/29/2024 8:30 AM EST Surgery ENDO [facility], Endoscopy Room [facility] [address] [place] [phone] Arnie Shrestha MD [address] [place] [address] COLONOSCOPY FLEXIBLE PROXIMAL DIAGNOSTIC 09/12/2024 7:00 AM EST Laboratory Lab Mobile Phlebotomy [facility] [address] [facility] [place] [address] [facility] [address] [facility] [place] [address] 09/17/2024 11:15 AM EST Office Visit Urology, [facility] [address] [facility] [place] [address] Kalpesh Funes MD [address] [address] 09/26/2024 7:00 AM EST Laboratory Lab Mobile Phlebotomy [facility] [address] [facility] [place] [address] [facility] [address] [facility] [place] [address] 03/12/2025 3:30 PM EDT Home Visit [facility] at Home [address] [place] [address] Betina Jacob PA-C [address] [place] [address] Scheduled Procedures Name Priority Associated Diagnoses Date/Ti [...] Additional history exists CKD PHOS USE SMARTSET 95335 12/07/202411/23, 12/26/2022, 06/21/2021 Depression Screening 03/07/2025 03/07/2024 CKD HGB USE SMARTSET 93122 03/28/202503/28, 03/28/2024, 03/14/2024, Additional history exists Colonoscopy [...] this encounter Medical Devices Implanted Type Area Spike Machine Heater Device Identifier Shelf Expiration Date Model / Serial / Lot Lens Intraoc 22.5 - [id number] - [id number] Implanted:Qty: 1 on 05/22/2018 by Jasbir Maurer MD at OR [facility] Right: Eye [employer] 11/22/2022 [id number] / [id number] / [id number] Lens Intraoc 21.0 - [id number] - [id number] Implanted:Qty: 1 on 06/05/2018 by Jasbir Maurer MD at OR [facility] Left: Eye [employer]CH [employer] LOMB 12/20/2022 [id number] / [id number] / documented as of this encounter Advance [...] Care Power of Attor mayela Care Teams Field Court Researcher Relationship Specialty Start Date End Date Michael Hinton MD [address] [place] [address] PCP - General Family Medicine 08/07/17 documented as of this encounter
--- OUTSIDE RECORDS SUMMARY | 2024-05-04 16:52 | External Medical Summary | Summary of Care ---
Author Name Unknown Organization [facility] Address [address] [place] [address] Phone [phone] Care Team Providers Care Product Sales Representative Name Role Phone Michael Hinton MD Primary Care Provider [phone] Encounter Details Date Type Department Care Team (Late st Contact Info) Description 03/28/2024 Telephone Gastroenterology, [facility] [address] [place] [address] Edilberto Lujan MD [address] [place] [address] Allergies Active Allergy Reactions Criticality Noted Date Comments Fabiano Inhibitors Cough 06/09/2017 Carbidopa W-Levodopa 03/17/2021 Constipation Nsaids Rash 05/17/2018 Contraindicated per biological plant operator documented as of this encounter (statuses [...] mitral valve regurgitation,Coron daniel artery disease involving holy cross coronary artery of holy cross heart without angina pectoris,Stage 3b chronic kidney [...] 07/28/2021 Last Assessment & Plan: Follows with [facility] hematology Routine labs monitored by hem/onc [...] knees 03/21/2018 Coronary artery disease invo lving holy cross coronary artery of holy cross heart without angina pectoris 03/21/2018 Last Assessment [...] balloon enteroscopy with either me or at [facility]. documented in this encounter Plan of Treatment Upcoming Encounters Date Type Department Care Team (Late st Contact Info) Description 03/30/2024 11:30 AM EDT Scheduled Telephone [facility] at [place], [facility] [address] [place] [address] [facility], [facility] [address] [place] [address] 04/05/2024 11:00 AM EDT Home Visit [facility], [facility] [address] [place] [address] Peggy De, RN 132 [facility] [place] [address] 04/11/2024 7:00 AM EDT Laboratory Lab Mobile Phlebotomy [facility] [address] [facility] [place] [address] [facility] [address] [facility] [place] [address] 04/23/2024 7:15 AM EDT Laboratory Lab Mobile Phlebotomy [facility] [address] [place] [address] [facility] [address] [facility] [place] [address] 05/08/2024 2:30 PM EDT Telemedicine [facility], [facility] [address] [facility] [place] [address] Berny Power PA-C 132 [facility] [place] [address] Meri Mae, Community [facility] [address] [place] [address] 05/09/2024 7:00 AM EDT Laboratory Lab Mobile Phlebotomy [facility] [address] [place] [address] [facility] [address] [place] [address] 05/23/2024 7:00 AM EDT Laboratory Lab Mobile Phlebotomy [facility] [address] [place] [address] [facility] [address] [facility] [place] [address] 06/06/2024 7:00 AM EDT Laboratory Lab Mobile Phlebotomy [facility] [address] [facility] [place] [address] [facility] [address] [facility] [place] [address] 06/20/2024 7:00 AM EDT Laboratory Lab Mobile Phlebotomy [facility] [address] [place] [address] [facility] [address] [facility] [place] [address] 07/04/2024 7:00 AM EDT Laboratory Lab Mobile Phlebotomy [facility] [address] [facility] [place] [address] [facility] [address] [facility] [place] [address] 07/18/2024 7:00 AM EDT Laboratory Lab Mobile Phlebotomy [facility] [address] [facility] [place] [address] [facility] [address] [facility] [place] [address] 08/01/2024 7:00 AM EDT Laboratory Lab Mobile Phlebotomy [facility] [address] [place] [address] [facility] [address] [facility] [place] [address] 08/13/2024 8:00 AM EDT Office Visit Cardiology, [facility] [address] [place] [address] Dominick Benz, [address] [place] [address] 08/15/2024 7:00 AM EDT Laboratory Lab Mobile Phlebotomy [facility] [address] [place] [address] [facility] [address] [facility] [place] [address] 08/29/2024 7:00 AM EST Laboratory Lab Mobile Phlebotomy [facility] [address] [facility] [place] [address] [facility] [address] [facility] [place] [address] 08/29/2024 8:00 AM EST Hospital Encounter ENDO [facility], Endoscopy Room [facility] [address] [place] [phone] Arnie Shrestha MD [address] [place] [address] 08/29/2024 8:00 AM EST - 08/29/2024 8:30 AM EST Surgery ENDO [facility], Endoscopy Room [facility] [address] [place] [phone] Arnie Shrestha MD [address] [place] [address] COLONOSCOPY FLEXIBLE PROXIMAL DIAGNOSTIC 09/12/2024 7:00 AM EST Laboratory Lab Mobile Phlebotomy [facility] [address] [facility] [place] [address] [facility] [address] [facility] [place] [address] 09/17/2024 11:15 AM EST Office Visit Urology, [facility] [address] [place] [address] Kalpesh Funes MD [address] [address] [place] [address] 09/26/2024 7:00 AM EST Laboratory Lab Mobile Phlebotomy [facility] [address] [facility] [place] [address] [facility] [address] [facility] [place] [address] 03/12/2025 3:30 PM EDT Home Visit [facility] [address] [place] [address] Betina Jacob PA-C [address] [place] [address] Scheduled Procedures Name Priority Associated Diagnoses Date/Ti [...] Additional history exists CKD PHOS USE SMARTSET 52382 12/07/202411/23, 12/26/2022, 06/21/2021 Depression Screening 03/07/2025 03/07/2024 CKD HGB USE SMARTSET 44350 03/28/202503/28, 03/28/2024, 03/14/2024, Additional history exists Colonoscopy [...] this encounter Medical Devices Implanted Type Area Corrugator Device Identifier Shelf Expiration Date Model / Serial / Lot Lens Intraoc 22.5 - [id number] - [id number] Implanted:Qty: 1 on 05/22/2018 by Jasbir Maurer MD at OR [facility] Right: Eye [employer] 11/22/2022 [id number] / [id number] / [id number] Lens Intraoc 21.0 - [id number] - [id number] Implanted:Qty: 1 on 06/05/2018 by Jasbir Maurer MD at OR [facility] Left: Eye 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
--- OUTSIDE RECORDS SUMMARY | 2024-05-04 16:52 | External Medical Summary | Summary of Care ---
Author Name Unknown Organization [facility] Address [address] [place] [address] Phone [phone] Care Team Providers Care Backfiller Name Role Phone Michael Hinton MD Primary Care Provider [phone] Encounter Details Date Type Department Care Team (Late st Contact Info) Description 03/28/2024 Telephone Gastroenterology, [facility] [address] [place] [address] Edilberto Lujan MD [address] [place] [address] Allergies Active Allergy Reactions Criticality Noted Date Comments Fabiano Inhibitors Cough 06/09/2017 Carbidopa W-Levodopa 03/17/2021 Constipation Nsaids Rash 05/17/2018 Contraindicated per compressor battery pellets documented as of this encounter (statuses as [...] mitral valve regurgitation,Coron daniel artery disease involving [place] coronary artery of [place] heart without angina pectoris,Stage 3b chronic kidney [...] knees 03/21/2018 Coronary artery disease invo lving [place] coronary artery of [place] heart without angina pectoris 03/21/2018 Last Assessment [...] scanned document from 11/13/[address] [facility] [...] encounter Miscellaneous Notes * Telephone Encounter - Kelley Escobar LPN - 04/01/2024 10:25 AM EDT Jesus is scheduled for 04/12/[address] Lujan in [facility] * Telephone Encounter - Odessa Cobb OSA - 03/29/2024 4:27 PM EDT Case added 04/12 * Telephone Encounter - Odessa Cobb OSA - 03/29/2024 3:35 PM EDT lmm * Telephone Encounter - Anaya Aldridge RN - 03/29/2024 2:56 PM EDT April 12 in the OR with Le. Please make it the 3rd case. Anaya Gant RN * Telephone Encounter - Odessa Cobb OSA - 03/29/2024 10:19 AM EDT Alejandra, please advise * Telephone Encounter - Allison Oliveira [...] balloon enteroscopy with either me or at [facility]. documented in this encounter Plan of Treatment Upcoming Encounters Date Type Department Care Team (Late st Contact Info) Description 04/01/2024 12:00 PM EDT Scheduled Telephone [facility], [facility] [address] [place] [address] Coordinator, [facility] [address] [place] [address] [place] [address] 04/05/2024 11:00 AM EDT Home Visit [facility] [place], [facility] [address] [address] Peggy De, RN [address] [place] [address] 04/11/2024 7:00 AM EDT Laboratory Lab Mobile Phlebotomy [facility] [address] [place] [address] Mvmg, Gml Mobile Home Draw [address] [place] [place] [address] 04/12/2024 8:38 AM EDT Hospital Encounter OR [facility], Operating Room, [facility] - 4th Floor [address] [address] Edilberto uLjan MD [address] [place] [address] 04/12/2024 8:38 AM EDT - 04/12/2024 9:40 AM EDT Surgery OR GL, Operating Room, [facility] - 4th Floor [address] [place] [address] Edilberto Lujan MD [address] [place] [address] SMALL INTESTINE ENDOSCOPY DIAGNOSTIC 04/23/2024 7:15 AM EDT Laboratory Lab Mobile Phlebotomy [facility] [address] [place] [address] Mvmg, Gml Mobile Home Draw [facility] [place] [address] [address] 05/08/2024 2:30 PM EDT Telemedicine [facility] [place], [facility] [place] [address] Berny Power PA-C [address] [place] [address] Meri Mae, Community Health Grease Machine Worker [address] [place] [address] 05/09/2024 7:00 AM EDT Laboratory Lab Mobile Phlebotomy [facility] [address] [place] [place] [address] Mvmg, Gml Mobile Home Draw [address] [place] [address] 05/23/2024 7:00 AM EDT Laboratory Lab Mobile Phlebotomy [facility] [address] [place] [address] [address] Mvmg, Gml Mobile Home Draw [address] [facility] [place] [address] 06/06/2024 7:00 AM EDT Laboratory Lab Mobile Phlebotomy [facility] [address] [employer] [place], [place] [address] Mvmg, Gml Mobile Home Draw [address] [facility] [place] [address] 06/20/2024 7:00 AM EDT Laboratory Lab Mobile Phlebotomy [facility] [address] [place] [address] Mvmg, Gml Mobile Home Draw [address] [facility] [place] [address] 07/04/2024 7:00 AM EDT Laboratory Lab Mobile Phlebotomy [facility] [address] [facility] [place] [address] Mvmg, Gml Mobile Home Draw [address] [facility] [place] [address] 07/18/2024 7:00 AM EDT Laboratory Lab Mobile Phlebotomy [facility] [address] [place] [address] Mvmg, Gml Mobile Home Draw [address] [facility] [place] [address] 08/01/2024 7:00 AM EDT Laboratory Lab Mobile Phlebotomy [facility] [address] [facility] [place] [address] Mvmg, Gml Mobile Home Draw [address] [facility] [place] [address] 08/13/2024 8:00 AM EDT Office Visit Cardiology, [facility] [address] [place] [address] Dominick Benz, DO [address] [address] 08/15/2024 7:00 AM EDT Laboratory Lab Mobile Phlebotomy [facility] [address] [place], [place] [address] Mvmg, Gml Mobile Home Draw [address] [facility] [place], [place] [address] 08/29/2024 7:00 AM EST Laboratory Lab Mobile Phlebotomy [facility] [address] [facility] [place], [place] [address] Mvmg, Gml Mobile Home Draw [address] [facility] [place], [place] [address] 08/29/2024 8:00 AM EST Hospital Encounter ENDO O[facility], Endoscopy Room [facility] [address] [place] [address] Arnie Shrestha MD [address] [place] [address] 08/29/2024 8:00 AM EST - 08/29/2024 8:30 AM EST Surgery ENDO O[facility], Endoscopy Room [facility] [address] [place] [phone] Arnie Shrestha MD [address] [place] [address] COLONOSCOPY FLEXIBLE PROXIMAL DIAGNOSTIC 09/12/2024 7:00 AM EST Laboratory Lab Mobile Phlebotomy [facility] [address] [facility] [place], [place] [address] Mvmg, Gml Mobile Home Draw [address] [facility] [place], [place] [address] 09/17/2024 11:15 AM EST Office Visit Urology, [facility] [address] [place] [address] Kalpesh Funes MD [address] [address] [place] [address] 09/26/2024 7:00 AM EST Laboratory Lab Mobile Phlebotomy [facility] [address] [facility] [place], [place] [address] Mvmg, Gml Mobile Home Draw [address] [facility] [place] [address] 03/12/2025 3:30 PM EDT Home Visit Care at Home [address] [facility] [place] [id number] Betina Jacob PA-C [address] [facility] [place] [address] Scheduled Procedures Name Priority Associated Diagnoses Date/Ti [...] Additional history exists CKD PHOS USE SMARTSET 65773 12/07/202411/23, 12/26/2022, 06/21/2021 Depression Screening 03/07/2025 03/07/2024 CKD HGB USE SMARTSET 42262 03/28/202503/28, 03/28/2024, 03/14/2024, Additional history exists Colonoscopy [...] this encounter Medical Devices Implanted Type Area Art History Instructor Device Identifier Shelf Expiration Date Model / Serial / Lot Lens Intraoc 22.5 - [id number] - [id number] Implanted:Qty: 1 on 05/22/2018 by Jasbir Maurer MD at OR [facility] Right: Eye [employer] 11/22/2022 [id number] / [id number] / [id number] Lens Intraoc 21.0 - [id number] - [id number] Implanted:Qty: 1 on 06/05/2018 by Jasbir Maurer MD at OR [facility] Left: Eye [employer] 12/20/2022 [id number] / [id number] / documented as of this encounter Advance [...] Agents on File Name Relationship [facility] Ashley Jose Spouse Health Care Power of Attor mayela Care Teams Backfiller Relationship Specialty Start Date End Date Michael Hinton MD [address] [place] [address] PCP - General Family Medicine 08/07/17 documented as of this encounter
--- OUTSIDE RECORDS SUMMARY | 2024-05-04 16:52 | External Medical Summary | Summary of Care ---
Author Name Unknown Organization [facility] Address [address] [facility] [place] [address] Phone [phone] Care Team Providers Care Consumer Affairs Director Name Role Phone Michael Hinton MD Primary Care Provider [phone] Reason for Visit * Reason Onset Date Comments [facility]: Maintenance 04/03/2024 Encounter Details Date Type Department Care Team (Late st Contact Info) Description 04/03/2024 Telephone [facility], [facility] [address] [facility] [place] [address] [facility], Nurse [facility] [address] [facility] [place] [id number] [facility]: Maintenance Allergies Active Allergy Reactions Criticality Noted Date Comments Fabiano Inhibitors Cough 06/09/2017 Carbidopa W-Levodopa 03/17/2021 Constipation Nsaids Rash 05/17/2018 Contraindicated per sand technologist documented as of this encounter (statuses as of 04/03/2024) Medications Medication Sig Dispensed Refills Start Date [...] mitral valve regurgitation,Coron daniel artery disease involving [place] coronary artery of [place] heart without angina pectoris,Stage 3b chronic kidney [...] as of this encounter (statuses as of 04/03/2024) Active Problems Problem Noted Date Diagnosed Date [...] 07/28/2021 Last Assessment & Plan: Follows with [facility] hematology Routine labs monitored by hem/onc [...] knees 03/21/2018 Coronary artery disease invo lving [place] coronary artery of [place] heart without angina pectoris 03/21/2018 Last Assessment [...] as of this encounter (statuses as of 04/03/2024) Resolved Problems Problem Noted Date Diagnosed Date [...] as of this encounter (statuses as of 04/03/2024) Immunizations Name Administration Dates Next Due COVID-19 [...] encounter Miscellaneous Notes * Telephone Encounter - Tiffanie Willis LPN - 04/03/2024 1:34 PM EDT Images from the original note were not included. [facility] Remote Patient Monitoring Unable to contact patient: Trigger type: Abnormal reading(s): Device(s) Triggered: AMC (Advanced Monitored Caregiving): Scale: Trigger weight: 167 lbs; weight increased 5 lbs in 2 day(s) Plan: call placed to patient for AMC weight trigger. Left message on mobile number for return call to [facility] Tiffanie Willis LPN [facility] 04/03/2024,1:34 PM documented in this encounter Plan of Treatment Upcoming Encounters Date Type Department Care Team (Late st Contact Info) Description 04/05/2024 11:00 AM EDT Home Visit [facility], [facility] [address] [place] [address] [address] Peggy De, RN [address] [place] [address] 04/11/2024 7:00 AM EDT Laboratory Lab Mobile Phlebotomy [facility] [address] [place] [address] [address] Mvmg, Gml Mobile Home Draw [address] [facility] [place] [address] 04/12/2024 8:38 AM EDT Hospital Encounter OR GL, Operating Room, [facility] - 4th Floor [address] [place] [address] Edilberto Lujan MD [address] [place] [address] 04/12/2024 8:38 AM EDT - 04/12/2024 9:40 AM EDT Surgery OR [facility], Operating Room, [facility] - 4th Floor [address] [place] [address] Edilberto Lujan MD [address] [place] [address] SMALL INTESTINE ENDOSCOPY DIAGNOSTIC 04/23/2024 7:15 AM EDT Laboratory Lab Mobile Phlebotomy [facility] [address] [place] [address] [address] Mvmg, Gml Mobile Home Draw [facility] [place] [address] 05/08/2024 2:30 PM EDT Telemedicine [facility] [place], [facility] 132 [facility] [place] [address] Berny Power PA-C [facility] [place] [address] Meri Mae, Community Health Professor Of Physical Education [address] [place] [address] 05/09/2024 7:00 AM EDT Laboratory Lab Mobile Phlebotomy [facility] [address] [place] [address] Mvmg, Gml Mobile Home Draw [address] [facility] [place] [address] 05/23/2024 7:00 AM EDT Laboratory Lab Mobile Phlebotomy [facility] [address] [facility] [place] [address] Mvmg, Gml Mobile Home Draw [address] [facility] [place] [address] 06/06/2024 7:00 AM EDT Laboratory Lab Mobile Phlebotomy [facility] [address] [facility] [place] [address] Mvmg, Gml Mobile Home Draw [address] [place] [address] 06/20/2024 7:00 AM EDT Laboratory Lab Mobile Phlebotomy [facility] [address] [facility] [place] [address] Mvmg, Gml Mobile Home Draw [address] [place] [address] 07/04/2024 7:00 AM EDT Laboratory Lab Mobile Phlebotomy [facility] [address] [facility] [place] [address] Mvmg, Gml Mobile Home Draw [address] [place] [address] 07/18/2024 7:00 AM EDT Laboratory Lab Mobile Phlebotomy [facility] [address] [facility] [place] [address] Mvmg, Gml Mobile Home Draw [address] [facility] [place] [address] 08/01/2024 7:00 AM EDT Laboratory Lab Mobile Phlebotomy [facility] [address] [facility] [place] [address] Mvmg, Gml Mobile Home Draw [address] [place] [address] 08/13/2024 8:00 AM EDT Office Visit Cardiology, [facility] [address] [place] [address] Dominick Benz, [address] [place] [address] 08/15/2024 7:00 AM EDT Laboratory Lab Mobile Phlebotomy [facility] [address] [facility] [place] [address] Mvmg, Gml Mobile Home Draw [address] [facility] [place] [address] 08/29/2024 7:00 AM EST Laboratory Lab Mobile Phlebotomy [facility] [address] [facility] [place] [address] Mvmg, Gml Mobile Home Draw [address] [facility] [place] [address] 08/29/2024 8:00 AM EST Hospital Encounter ENDO OSSC, Endoscopy Room [facility] [address] [place] [phone] Arnie Shrestha MD [address] [place] [address] 08/29/2024 8:00 AM EST - 08/29/2024 8:30 AM EST Surgery ENDO OSSC, Endoscopy Room [facility] [address] [place] [phone] Arnie Shrestha MD [address] [place] [address] COLONOSCOPY FLEXIBLE PROXIMAL DIAGNOSTIC 09/12/2024 7:00 AM EST Laboratory Lab Mobile Phlebotomy [facility] [address] [facility] [place] [address] Mvmg, Gml Mobile Home Draw [address] [facility] [place] [address] 09/17/2024 11:15 AM EST Office Visit Urology, [facility] [address] [place] [address] Kalpesh Funes MD [address] [address] [place] [address] 09/26/2024 7:00 AM EST Laboratory Lab Mobile Phlebotomy [facility] [address] [facility] [place] [address] Mvmg, Gml Mobile Home Draw [address] [place] [address] 03/12/2025 3:30 PM EDT Home Visit Care at Home [address] [facility] [place] [id number] Betina Jacob PA-C [address] [address] Scheduled Procedures Name Priority Associated Diagnoses Date/Ti [...] Additional history exists CKD PHOS USE SMARTSET 61467 12/07/202411/23, 12/26/2022, 06/21/2021 Depression Screening 03/07/2025 03/07/2024 CKD HGB USE SMARTSET 97900 03/28/202503/28, 03/28/2024, 03/14/2024, Additional history exists Colonoscopy [...] this encounter Medical Devices Implanted Type Area Stone Sandblaster Device Identifier Shelf Expiration Date Model / Serial / Lot Lens Intraoc 22.5 - [id number] - [id number] Implanted:Qty: 1 on 05/22/2018 by Jasbir Maurer MD at OR [facility] Right: Eye [employer] 11/22/2022 [id number] / [id number] / [id number] Lens Intraoc 21.0 - [id number] - [id number] Implanted:Qty: 1 on 06/05/2018 by Jasbir Maurer MD at OR [facility] Left: Eye [employer] 12/20/2022 [id number] / [id number] / documented as of this encounter Advance [...] Agents on File Name Relationship Healthcare Agent Danyellin emanuel Communication Ashley Jose Spouse Health Care Power of Attor mayela Care Teams Consumer Affairs Director Relationship Specialty Start Date End Date Michael Hinton MD [address] [place] [address] PCP - General Family Medicine 08/07/17 documented as of this encounter
--- OUTSIDE RECORDS SUMMARY | 2024-05-04 16:52 | External Medical Summary | Summary of Care ---
Author Name Unknown Organization [facility] Address [address] [place] [address] Phone [phone] Care Team Providers Care Mine Shifter Name Role Phone Michael Hinton MD Primary Care Provider [phone] Reason for Visit * Reason Onset Date Comments [facility]: Maintenance 03/31/2024 Encounter Details Date Type Department Care Team (Late st Contact Info) Description 03/31/2024 8:30 AM EDT Scheduled Telephone [facility], [facility] [address] [place] [address] [facility], Nurse [facility] [address] [place] [address] Allergies Active Allergy Reactions Criticality Noted Date Comments Fabiano Inhibitors Cough 06/09/2017 Carbidopa W-Levodopa 03/17/2021 Constipation Nsaids Rash 05/17/2018 Contraindicated per drywall taper documented as of this encounter (statuses as of 03/31/2024) Medications Medication Sig Dispensed Refills Start Date End Date Status Glucose Blood (ONETOUCH VERIO) STRPIndications:Typ e 2 diabetes mellitus with hemoglobin A1c goal of less than 8.0% ([facility]) Use up to 4 times [...] mitral valve regurgitation,Coron daniel artery disease involving naknek coronary artery of naknek heart without angina pectoris,Stage 3b chronic kidney [...] as of this encounter (statuses as of 03/31/2024) Active Problems Problem Noted Date Diagnosed Date [...] knees 03/21/2018 Coronary artery disease invo lving naknek coronary artery of naknek heart without angina pectoris 03/21/2018 Last Assessment [...] as of this encounter (statuses as of 03/31/2024) Resolved Problems Problem Noted Date Diagnosed Date [...] scanned document from 11/13/[address] bains, [facility]. [...] as of this encounter (statuses as of 03/31/2024) Immunizations Name Administration Dates Next Due COVID-19 [...] encounter Miscellaneous Notes * Telephone Encounter - Elvira Guevara RN - 03/31/2024 10:26 AM EDT Attempted to contact pt today for f/u. No answer, left message requesting a return call. Reviewed [facility]-no transmissions since 03/26/24. Nurse phone f/u scheduled in 1 day. documented in this encounter Plan of Treatment Upcoming Encounters Date Type Department Care Team (Late st Contact Info) Description 04/01/2024 12:00 PM EDT Scheduled Telephone [facility] [place], [facility] [address] [address] Coordinator, [facility] [address] [address] 04/05/2024 11:00 AM EDT [facility] Visit [facility] [place], [facility] [address] [address] Peggy De RN [address] [address] 04/11/2024 7:00 AM EDT Laboratory [facility] [address] [place] [address] [facility] [address] [place] [address] 04/12/2024 8:38 AM EDT Hospital Encounter OR [facility], Operating Room, [facility] - 4th Floor [address] [place] [address] Edilberto Lujan MD [address] [place] [address] 04/12/2024 8:38 AM EDT - 04/12/2024 9:40 AM EDT Surgery OR [facility], Operating Room, [facility] - 4th Floor [address] [place] [address] [address] Edilberto Lujan MD [address] [place] [address] SMALL INTESTINE ENDOSCOPY DIAGNOSTIC 04/23/2024 7:15 AM EDT Laboratory [facility] [address] [place] [address] [facility] [place] [address] [place] [address] 05/08/2024 2:30 PM EDT Telemedicine [facility] [place], [facility] [address] [address] Berny Power PA-C [address] [place] [address] [address] Meri Mae, [facility] [employer] [address] [place] [address] 05/09/2024 7:00 AM EDT Laboratory [facility] [address] [place] [address] [facility] [address] [place] [address] [address] 05/23/2024 7:00 AM EDT Laboratory [facility] [address] [address] [facility] [address] [facility] [place] [address] 06/06/2024 7:00 AM EDT Laboratory Lab [facility] [address] [facility] [place] [address] [facility] [address] [facility] [place] [address] 06/20/2024 7:00 AM EDT Laboratory [facility] [address] [facility] [place] [address] [facility] [address] [facility] [place] [address] 07/04/2024 7:00 AM EDT Laboratory Lab [facility]bot[facility] [address] [facility] [place] [address] [facility] [address] [facility] [place] [address] 07/18/2024 7:00 AM EDT Laboratory [facility] [address] [facility] [place] [address] [facility] [address] [facility] [place] [address] 08/01/2024 7:00 AM EDT Laboratory [facility] [address] [facility] [place] [address] [facility] [address] [facility] [place] [address] 08/13/2024 8:00 AM EDT Office Visit Cardiology, [facility] [address] [place] [address] [address] Dominick Benz, DO [address] [address] 08/15/2024 7:00 AM EDT Laboratory Lab [facility] [address] [facility] [place], [place] [address] [facility], [facility] [address] [facility] [place], [place] [address] 08/29/2024 7:00 AM EST Laboratory [facility] [address] [facility] [place], [place] [address] [facility], [facility] [address] [facility] [place], [place] [address] 08/29/2024 8:00 AM EST Hospital Encounter [facility], Endoscopy Room [facility] [address] [facility] [place] [id number] Arnie Shrestha MD [address] [place] [address] 08/29/2024 8:00 AM EST - 08/29/2024 8:30 AM EST Surgery [facility]O [facility], Endoscopy Room [facility] [address] [place] [id number] Arnie Shrestha MD [address] [place] [address] COLONOSCOPY FLEXIBLE PROXIMAL DIAGNOSTIC 09/12/2024 7:00 AM EST Laboratory Lab [facility]lebot[facility] [address] [facility] [place], [place] [address] [facility], [facility] Mobile Home Draw [address] [facility] [place], [place] [address] 09/17/2024 11:15 AM EST Office Visit Urology, [facility] [address] [place] [address] Kalpesh Funes MD [address] [facility] [address] [address] 09/26/2024 7:00 AM EST Laboratory Lab [facility] [address] [facility] [address] [place] [address] [facility], [facility] [address] [facility] [place] [address] 03/12/2025 3:30 PM EDT Home Visit Care at Home [address] [place] [address] Betina Jacob PA-C [address] [place] [address] Scheduled Procedures Name Priority Associated [...] Additional history exists CKD PHOS USE SMARTSET 62339 12/07/202411/23, 12/26/2022, 06/21/2021 Depression Screening 03/07/2025 03/07/2024 CKD HGB USE SMARTSET 40786 03/28/202503/28, 03/28/2024, 03/14/2024, Additional history exists Colonoscopy [...] encounter Medical Devices Implanted Type Area Television Maintenance Worker Device Identifier Shelf Expiration Date Model / Serial / Lot Lens Intraoc 22.5 - [id number] - [id number] Implanted:Qty: 1 on 05/22/2018 by Jasbir Maurer MD at OR [facility] Right: Eye [employer] 11/22/2022 [id number] / [id number] / [id number] Lens Intraoc 21.0 - [id number] - [id number] Implanted:Qty: 1 on 06/05/2018 by Jasbir Maurer MD at OR [facility] Left: Eye [employer] 12/20/2022 [id number] / [id number] / documented as of this encounter Advance [...] Agents on File Name Relationship [facility] Ashley Jose Spouse Health Care Power of Attor mayela Care Teams Mine Shifter Relationship Specialty Start Date End Date Michael Hinton MD [address] [place] [address] PCP - General Family Medicine 08/07/17 documented as of this encounter
[2024-05-04 17:12] LABS: Basophils # (auto) 0.02 K/uL (0.00-0.20); Basophils % (auto) 0.2 %; Eosinophils # (auto) 0.01 K/uL (0.00-0.50); Eosinophils % (auto) 0.1 %; Hemoglobin 9.5 g/dl (14.0-18.0); Lymphocytes # (auto) 0.49 K/uL (1.20-3.40); Lymphocytes % (auto) 4.7 %; Mean Corpuscular Hemoglobin 31.4 pg (25.0-34.0); Mean Corpuscular Hgb Conc 32.8 g/dL (32.0-36.0); Mean Corpuscular Volume 95.7 fL (80.0-100.0); Mean Platelet Volume 9.2 fL (9.4-12.4); Monocytes # (auto) 0.59 K/uL (0.11-0.59); Monocytes % (auto) 5.6 %; Neutrophils # (auto) 9.25 K/uL (1.40-6.50); Neutrophils % (auto) 88.4 %; Platelet Count 152 K/uL (130-400); RDW Coefficient of Variation 15.7 % (11.5-14.5); RDW Standard Deviation 55.4 fL (36.4-46.3); Red Blood Count 3.03 M/uL (4.70-6.10); White Blood Count 10.46 K/ul (4.8-10.8)
--- NOTE | 2024-05-04 17:21 | XRay Report ---
SINGLE VIEW CHEST CLINICAL HISTORY: Generalized weakness FINDINGS: An AP, portable, upright chest radiograph is compared to study dated 02/29/2024. The patient is status post midline sternotomy. The heart is enlarged noting atherosclerotic calcification of the thoracic aorta. The pulmonary vasculature is noncongested. Chronic interstitial thickening is similar to previous. There is bibasilar scarring/atelectasis. No airspace consolidation or large pleural eff usion is identified. No pneumothorax is seen. The skeletal structures are osteopenic. There are chron ic/healed left-sided rib fractures. Arthritic change is seen in the shoulders. IMPRESSION: Cardiomegaly with no active disease in the chest. ACT 112: Negative or not required by law. Electronically signed by: Gonzales Alvarado M.D. 05/04/2024 5:19 PM
[2024-05-04 17:30] LABS: Albumin Globulin Ratio 1.4 (0.9-2); Albumin Level 3.3 gm/dl (3.4-5.0); BUN Creatinine Ratio 15.1 (10-20); Bilirubin,Total 0.6 mg/dl (0.2-1.0); Calcium 8.6 mg/dl (8.6-10.3); Creatinine Clr Calc Pharmacy 34.2 ml/min; Est GFR (African American) 44.4 ml/min; Est GFR (Non-African American) 38.3 ml/min; Globulin 2.4 gm/dl (2.5-4.0); Magnesium 1.7 mg/dl (1.7-2.4); Potassium 4.3 mmol/L (3.5-5.1); Total Protein 5.7 gm/dl (6.0-8.3)
[2024-05-04] MEDS: SODIUM CHLORIDE 0.9% 1,000 ML IV SCH (17:32)
[2024-05-04 17:39] LABS: INR 1.1 (0.9-1.1); Prothrombin Time 11.4 Seconds (9.0-12.0)
[2024-05-04 17:46] LABS: Thyroid Stimulating Hormone 2.361 uIu/ml (0.300-4.500)
[2024-05-04 18:03] LABS: Adenovirus PCR Not Detected (NotDetected); Bordetella parapertussis PCR Not Detected (NotDetected); Bordetella pertussis PCR Not Detected (NotDetected); Chlamydia pneumoniae PCR Not Detected (NotDetected); Coronavirus 229E PCR Not Detected (NotDetected); Coronavirus CoV-2 (COVID19)PCR Not Detected (NotDetected); Coronavirus HKU1 PCR Not Detected (NotDetected); Coronavirus NL63 PCR Not Detected (NotDetected); Coronavirus OC43PCR Not Detected (NotDetected); Human Metapneumovirus PCR Not Detected (NotDetected); Influenza A PCR Not Detected (NotDetected); Influenza B PCR Not Detected (NotDetected); Mycoplasma pneumoniae PCR Not Detected (NotDetected); Parainfluenza Virus 1 PCR Not Detected (NotDetected); Parainfluenza Virus 2 PCR Not Detected (NotDetected); Parainfluenza Virus 3 PCR Not Detected (NotDetected); Parainfluenza Virus 4 PCR Not Detected (NotDetected); Respiratory Syncytial VirusPCR Not Detected (NotDetected); Rhinovirus/Enterovirus PCR Not Detected (NotDetected)
[2024-05-04] MEDS: OPTIRAY 320 100ml IV ONE (18:23)
[2024-05-04 18:25] LABS: Appearance Urine Clear (Clear); Bacteria Urine Automated None Seen (None Seen); Bilirubin Urine Negative (Negative); Blood Urine Negative (Negative); Color Urine Yellow; Epithelial Cell Urine Auto 0-2 /hpf (0-2); Glucose Urine UA Negative (Negative); Ketones Urine Negative (Negative); Leukocyte Esterase Urine Negative (Negative); Nitrite Urine Negative (Negative); Protein Urine 1+ (Negative); RBC Urine Automated 0-2 /hpf (0-2); Specific Gravity Urine 1.017 (1.000-1.030); Urobilinogen Urine Negative (Negative); WBC Urine Automated 0-5 /hpf (0-5); pH Urine 5.5 (4.5-7.5)
[2024-05-04] MEDS: SODIUM CHLORIDE 0.9% 1,000 ML IV ONE (18:32)
--- NOTE | 2024-05-04 18:37 | CT Scan Report ---
CT SCAN OF THE ABDOMEN AND PELVIS WITH IV CONTRAST CLINICAL HISTORY: Generalized weakness. C. difficile infection. COMPARISON STUDY: Abdominal CT dated 10/06/2023. TECHNIQUE: Following the IV administration of 91 cc of Optiray 320, CT scan of the abdomen and pelvi s is performed from the lung bases to the proximal femora. Images are reviewed in the axial, sagittal , and coronal planes. IV contrast was administered without complication. A dose lowering technique wa s utilized adhering to the principles of ALARA. The examination is degraded by motion artifact. CT DOSE: 2451.31 mGy.cm FINDINGS: Lung bases: The patient is status post midline sternotomy. The heart is enlarged and without pericard ial effusion. The coronary arteries are densely calcified. There is a tiny hiatal hernia. The lung ba ses are clear noting bibasilar scarring/atelectasis. Liver: The contrast-enhanced liver is normal in size, contour, and attenuation. There is no intrahepa tic biliary ductal dilatation. The hepatic veins and portal veins are patent. Gallbladder: Unremarkable. Spleen: Normal in size and attenuation. 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 The pancreas is mildly atrophic and other watts grossly unremarkable. Adrenal glands: Unremarkable. Kidneys: The contrast enhanced kidneys demonstrate mild cortical atrophy and are without hydronephros is. The kidneys enhance symmetrically. Abdominal vasculature: The abdominal aorta is normal in course and caliber noting moderate atheroscle rotic calcification. Bowel: There is no bowel obstruction. The colon is normal in caliber. There is mild wall thickening t hroughout the colon with pericolonic infiltration. This is greatest involving the proximal descending colon, is consistent with a nonspecific pancolitis. There is mild colonic diverticulosis without CT evidence of acute diverticulitis. Metallic foreign bodies/clips are present within the proximal jejun um as seen on image #196. A duodenal diverticulum is incidentally noted. The appendix is well-visual ized and normal. Peritoneum: There is no intraperitoneal free air or abdominal ascites. Lymphadenopathy: None. Pelvic viscera: Evaluation of the pelvis is degraded by streak artifact from a right hip arthroplasty . The prostate gland is enlarged and heterogeneous. The bladder wall is thickened/trabeculated indica ting chronic outlet obstruction. There is a fat containing right groin hernia. Skeletal structures: The skeletal structures are osteopenic. There is advanced lumbosacral spondylosi s. There are bilateral pars defects at L5. Degenerative change and partial fusion is seen in the sacr oiliac joints. Arthritic change is noted in the left hip. No lytic or blastic lesions are seen. A rig ht hip arthroplasty is in place. IMPRESSION: 1. Findings are consistent a nonspecific pancolitis. Correlate clinically. 2. The colon is normal in caliber. 3. Cardiomegaly. 4. Metallic foreign bodies/clips are noted in the proximal jejunum. Correlate clinically. 5. Additional findings as above. ACT 112: Negative or not required by law. Electronically signed by: Gonzales Alvarado M.D. 05/04/2024 6:35 PM
--- NOTE | 2024-05-04 18:40 | CT Scan Report ---
CT SCAN OF THE BRAIN WITHOUT IV CONTRAST CLINICAL HISTORY: Generalized weakness. COMPARISON STUDY: CT of the brain dated 07/01/2021. TECHNIQUE: Unenhanced axial CT scan of the brain is performed from the vertex to the skull base. A do se lowering technique was utilized adhering to the principles of ALARA. FINDINGS: Brain parenchyma: There is age-related involutional change noting moderate subcortical and periventri cular microangiopathic disease. There is no hemorrhage, mass effect, or evidence of acute territorial ischemia by CT criteria. Mineralization is noted in the basal ganglia. Jain-white matter differentia tion is preserved. No extra-axial fluid collection is seen. Ventricles, sulci, cisterns: Prominent secondary to involutional change. Intracranial vasculature: There is atherosclerotic calcification of the cavernous carotid and vertebr al arteries. Calvarium: Unremarkable. Sinuses and mastoids: The visualized paranasal sinuses are clear. There are left larger than right ma ssive effusions. Orbits: The bony orbits are grossly intact. There are bilateral ocular lens implants. IMPRESSION: There is no hemorrhage, mass effect, or evidence of acute territorial ischemia by CT tammy rosenbaum. ACT 112: Negative or not required by law. Electronically signed by: Gonzales Alvarado M.D. 05/04/2024 6:38 PM
[2024-05-04] MEDS: METOPROLOL TARTRATE 1 MG/ML VIAL IV STA (20:03)
[2024-05-04 20:57] LABS: Estimated Average Glucose 140 mg/dl; Hemoglobin A1C 6.5 % (4.5-5.6)
[2024-05-04] MEDS: MAGNESIUM SULFATE / D5W 1 GM/100 ML BAG IV SCH (21:02)
--- NOTE | 2024-05-04 21:04 | History & Physical Report ---
Date of Service May 04, 2024 Assessment & Plan (1) Atrial fibrillation with rapid ventricular response: Plan: Patient not on anticoagulation secondary to recurrent GI bleed Multifactorial: Possible sepsis from LLE cellulitis, hx recurrent cellulitis/strep bacteremia as per records rule out DVT Diarrheal illness, C. difficile recently started on vancomycin course chronic diastolic heart failure (EF 60 to 65%, TTE 2021), equivocal volume status hx CAD status post CABG valvular heart disease (mild MR/AR, mitral valve prolapse as per records) hypertension, stable hyperlipidemia, on statin Rx DM 2, diet-controlled, well-controlled as of recent hemoglobin A1c of 5.4 last September 2023 Parkinson's dementia, patient follows with [facility] specialist CRI, creatinine at baseline chronic anemia, hemoglobin at baseline possible deconditioning PCU Titrate home beta-augie Update TTE CS, Doxycycline for LLE cellulitis LE venous Dopplers rule out DVT Complete oral vancomycin course Resume home diuretic Rx in a.m. once patient euvolemic ISS BG goal [id number], carb count coverage, update hemoglobin A1c PT OT eval in a.m. DVT prophylaxis. SCDs RE recurrent GI bleed Full code Patient's requesting for updates from providers. Mrs. Ashley Jose, contact #[phone]. Text document was generated using [employer] voice recognition software. It may contain grammatical or spelling errors. Kindly contact undersigned for clarification of any documentation item in question. History of Present Illness Chief Complaint: Weakness, fever Primary Care Provider: Michael Hinton MD History obtained from patient, family, and records. Limited history from patient secondary to hearing impairment and dementia. Medical history significant for chronic diastolic heart failure (EF 60 to 65%, TTE 2021), CAD status post CABG, valvular heart disease (mild MR/AR, mitral valv e prolapse as per records), PAF not on anticoagulation secondary to recurrent GI bleed, wandering atrial pacemaker as per records, hypertension, hyperlipidemia, Parkinson's dementia, GERD, CRI (baseline creatinine 1.5-2), medullary sponge kidney as per records, BPH, chronic anemia (recent hemoglobin of 10-11), history recurrent cellulitis/strep bacteremia as per records, recent C. difficile ongoin g vancomycin Rx. Last confinement February 2024 for acute on chronic anemia secondary to GI bleed. Normal small bowel enteroscopy. Outpatient endoscopy done last month. Ileal angioectasias noted sp APC treatment and clipping. Watery diarrhea the last few weeks with mild abdominal cramping. Poor appetite. Outpatient stool C. difficile noted to be positive. Patient prescribed oral vancomycin course by GI provider yesterday. Patient noted to have increasing weakness. Bilateral leg swelling right greater than the left. Left leg noted to be red and seeping. Temperature of 101 at home. Patient denies unusual chest pain or SOB or cough symptoms. Patient noted to be in rapid A-fib upon arrival at the ER. 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5 mg PO QAM 01/24/23 05/04/24 History donepezil 10 mg tablet 10 mg PO QAM 10/06/23 05/04/24 History atorvastatin 40 mg tablet 40 mg PO QAM 01/08/24 05/04/24 History escitalopram oxalate 20 mg tablet 20 mg PO QAM #90 tabs 02/09/24 05/04/24 Rx acetaminophen 500 mg tablet 1,000 mg PO Q8H PRN Pain 02/29/24 05/04/24 History betamethasone dipropionate 0.05 % 1 applic topical BID 02/29/24 05/04/24 History topical ointment cholecalciferol (vitamin D3) 25 25 mcg PO QAM 02/29/24 05/04/24 History mcg (1,000 unit) capsule levalbuterol tartrate 45 1 puff inhalation Q6H PRN Wheezing 02/29/24 05/04/24 History mcg/actuation aerosol inhaler pantoprazole 40 mg tablet,delayed 40 mg PO QAM 02/29/24 05/04/24 History release vitamin B complex 1 cap PO DAILY 02/29/24 05/04/24 History metoprolol succinate 25 mg 25 mg PO QAM #90 tabs 04/30/24 05/04/24 Rx tablet,extended release 24 hr lactobacillus combination no.4 3 3,000 mmu cells PO QAM 05/04/24 05/04/24 History billion cell capsule (Probiotic) vancomycin 125 mg capsule 125 mg PO QID 05/05/24 05/05/24 History Past Med/Surg History Problem List Elevated brain natriuretic peptide (BNP) level (Acute) Atrial fibrillation with rapid ventricular response (Acute) Generalized weakness (Acute) Acute GI bleeding (Acute) Anemia (Acute) Transfusion-dependent anemia Elevated lipase Melena Acute on chronic anemia CKD (chronic kidney disease) (Acute) Symptomatic anemia (Acute) Acute GI bleeding (Acute) Blood in both ear canals Osteoarthritis of right knee Bilateral chronic serous otitis media Generalized weakness (Acute) Diarrhea (Acute) Ambulatory dysfunction (Acute) Anemia Paroxysmal A-fib Acute heart failure with preserved ejection fraction (HFpEF) Lumbar transverse process fracture Hypovolemic shock Encounter for pre-operative examination Colon polyps Acute kidney injury superimposed on CKD Heme positive stool Acute blood loss anemia Symptomatic anemia (Acute) Acute hypotension (Acute) Acute GI bleeding (Acute) Status post fall Chronic heart failure with preserved ejection fraction (HFpEF) Hypervolemia (Acute) ETD (eustachian tube dysfunction) Encounter for pre-operative examination Immunosuppressed status Dental infection Generalized weakness (Acute) Congestive heart failure (Acute) Hypoxia (Acute) Hematuria Electrolyte imbalance Diarrhea Coronary artery disease COPD (chronic obstructive pulmonary disease) (Acute) Hypomagnesemia (Acute) DVT prophylaxis Hypomagnesemia CHF (congestive heart failure) (Acute) Acute respiratory failure with hypoxia SOB (shortness of breath) History of total right hip replacement 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 Dementia (Acute) Sensorineural hearing loss (SNHL) of both ears S/P triple vessel bypass (2011) [facility] w/Dr. Weathers; f/u Dr. Benz Thompson Moderate mitral regurgitation f/u Dr. Benz, Thompson 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Acute) Primary parkinsonism (Acute) GERD (gastroesophageal reflux disease) HTN (hypertension) CKD (chronic kidney disease) stage 3, GFR 30-59 ml/min (Acute) Diabetes type 2, controlled Dyslipidemia BPH (benign prostatic hyperplasia) Medical History GI bleed 09/2023 Anemia 09/2023 inpt at [facility] Atrial fibrillation f/u Dr. Benz Thompson Eliquis on hold due to anemia History of blood transfusion 10/06/23- was admitted at [facility], low blood count, reason for upcoming procedure 03/24/23, "he's bleeding somewhere, has a low blood count, not sure where losing it from"; f/u Dr. 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 History of pneumonia end of 01/2023, found in lt. 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 Parkinson's>no current issues Diastolic dysfunction Lower extremity edema HUNTER (iron deficiency anemia) Ambulatory dysfunction Seasonal allergies Thoracic aortic aneurysm sx in 2011, at [facility] Lumbar spondylosis MUSTAFA (dyspnea on exertion) inh prn Coronary aneurysm (2011) Per cardio records CAD with CABG in 2011 (CHILDS to LAD and exclusion of RCA aneurysm Adverse reaction to anesthetic agent 2011 w/hip replacement>hallucinated for 3 days Orthostatic hypotension (07/2019) Peripheral arterial disease Recurrent cellulitis of lower extremity reason for daily cephalexin Anxiety CAD (coronary artery disease) history of CABG (CHILDS to LAD and exclusion of a right coronary artery aneurysm), 2011 at [facility]. Surgical History History of carpal tunnel release of both wrists History of esophagogastroduodenoscopy (EGD) Hx of colonoscopy Hx of bilateral cataract extraction History of neck surgery [facility] w/Dr. Pacheco; ROM-"can't turn it very far side to side nor move it up or down very far" S/P wrist surgery S/P CABG (coronary artery bypass graft) (2012) CHILDS, "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 History of right hip replacement H/O foot surgery reconstructive sx on rt. foot H/O eye surgery numerous when he was young Family History Unknown No problems noted. Father Hypertension, Onset Age: 40 at 40 Mother Hypertension COPD (chronic obstructive pulmonary disease) Diabetes Brother Allergies Asthma Denies family history of Prostate cancer Hearing loss No family history of adverse response to anesthesia No family history of bleeding disorder Heart disease Cancer Stroke Social History Smoking Status: Never smoker Tobacco Type: Cigars Second Hand Exposure: No; Do You Dip or Chew Tobacco: No; Hx Alcohol Use: No Hx Substance Use: No Preferred Language: Croatian Communication Ability: Effective Communication Ability Comment: Hard of hearing Fisher Trawl Line Required: No Beliefs That Will Affect Care: None marital status: Current Living Situation: Spouse Current Living Situation Comment: Lives at home with spouse Feels Safe at Home: Yes Safety Concerns: Feels Safe At This Time Assistive Devices: Hearing Aid - Bilateral, Oxygen - at Night and Walker Review of Systems Review of Systems: Could not be reliably obtained secondary to dementia/hearing impairment Physical Exam Physical Exam: GENERAL: Demented, obese, slightly hard of hearing, no respiratory distress SKIN: Pallor, warm HEENT: Pale palpebral conjunctivae, chronic ptosis right, dry buccal mucosa NECK : Supple, short neck, no tenderness CHEST : CTA, no tenderness HEART : Irregular, systolic murmur ABDOMEN: Some distention, nontender EXTREMITIES : RLE swelling, LLE erythema with minimal LE tenderness, no other conspicuous deformities noted NEUROLOGIC : Coherent, chronic ptosis right, mild hearing impairment, no facial asymmetry, gait and stance not assessed Results & Data Results & Data Vital Signs (Past 12 Hours) Vital Signs Temp Pulse Pulse Resp BP BP Pulse Ox 05/04/24 20:49 96 H 05/04/24 20:30 96 05/04/24 20:18 30 H 95 05/04/24 20:06 140/83 05/04/24 20:03 116 H 145/102 H 05/04/24 19:57 126 H 38 H 96 05/04/24 19:18 124 H 31 H 94 05/04/24 19:00 135/84 05/04/24 18:42 107 H 20 129/78 96 05/04/24 17:24 94 H 05/04/24 17:00 77 18 96 05/04/24 16:45 37.5 C 93 H 18 148/83 H 98 O2 Del Method 05/04/24 20:49 05/04/24 20:30 05/04/24 20:18 Room Air 05/04/24 20:06 05/04/24 20:03 05/04/24 19:57 05/04/24 19:18 05/04/24 19:00 05/04/24 18:42 Room Air 05/04/24 17:24 05/04/24 17:00 Room Air 05/04/24 16:45 Room Air Laboratory Results Laboratory Results WBC 10.46 K/ul (4.8-10.8) 05/04/24 17:00 RBC 3.03 M/uL (4.70-6.10) L 05/04/24 17:00 Hgb 9.5 g/dl (14.0-18.0) L 05/04/24 17:00 Hct 29.0 % (42.0-52.0) L 05/04/24 17:00 MCV 95.7 fL (80.0-100.0) 05/04/24 17:00 MCH 31.4 pg (25.0-34.0) 05/04/24 17:00 MCHC 32.8 g/dL (32.0-36.0) 05/04/24 17:00 RDW Std Deviation 55.4 fL (36.4-46.3) H 05/04/24 17:00 RDW Coeff of Anny 15.7 % (11.5-14.5) H 05/04/24 17:00 Plt Count 152 K/uL (130-400) 05/04/24 17:00 MPV 9.2 fL (9.4-12.4) L 05/04/24 17:00 Immature Gran % (Auto) 1.0 % 05/04/24 17:00 Neut % (Auto) 88.4 % 05/04/24 17:00 Lymph % (Auto) 4.7 % 05/04/24 17:00 [place] % (Auto) 5.6 % 05/04/24 17:00 Eos % (Auto) 0.1 % 05/04/24 17:00 Baso % (Auto) 0.2 % 05/04/24 17:00 Neut # (Auto) 9.25 K/uL (1.40-6.50) H 05/04/24 17:00 Lymph # (Auto) 0.49 K/uL (1.20-3.40) L 05/04/24 17:00 [place] # (Auto) 0.59 K/uL (0.11-0.59) 05/04/24 17:00 Eos # (Auto) 0.01 K/uL (0.00-0.50) 05/04/24 17:00 Baso # (Auto) 0.02 K/uL (0.00-0.20) 05/04/24 17:00 Immature Gran # (Auto) 0.10 K/uL (0.01-0.20) 05/04/24 17:00 PT 11.4 Seconds (9.0-12.0) 05/04/24 17:00 INR 1.1 (0.9-1.1) 05/04/24 17:00 Sodium 133 mmol/L (136-145) L 05/04/24 17:00 Potassium 4.3 mmol/L (3.5-5.1) 05/04/24 17:00 Chloride 100 mmol/L (98-107) 05/04/24 17:00 Carbon Dioxide 26 mmol/L (21-32) 05/04/24 17:00 Anion Gap 7 (3-11) 05/04/24 17:00 BUN 25 mg/dl (6-23) H 05/04/24 17:00 Creatinine 1.66 mg/dl (0.6-1.4) H 05/04/24 17:00 Est Cr Clr Drug Dosing 34.2 ml/min 05/04/24 17:00 Est GFR ( Amer) 44.4 ml/min 05/04/24 17:00 Est GFR (Non-Af Amer) 38.3 ml/min 05/04/24 17:00 BUN/Creatinine Ratio 15.1 (10-20) 05/04/24 17:00 Glucose 185 mg/dl (70-99(Fasting)) H 05/04/24 17:00 Estimat Average Glucose 140 mg/dl 05/04/24 17:00 Hemoglobin A1c 6.5 % (4.5-5.6) H 05/04/24 17:00 Lactate 1.5 mmol/L (0.4-2.0) 05/04/24 17:00 Calcium 8.6 mg/dl (8.6-10.3) 05/04/24 17:00 Magnesium 1.7 mg/dl (1.7-2.4) 05/04/24 17:00 Total Bilirubin 0.6 mg/dl (0.2-1.0) 05/04/24 17:00 AST 25 U/L (13-39) 05/04/24 17:00 ALT 21 U/L (7-52) 05/04/24 17:00 Alkaline Phosphatase 129 U/L (34-104) H 05/04/24 17:00 Troponin I High Sens 11.0 pg/ml (0-20) 05/04/24 17:00 B-Natriuretic Peptide 344 pg/ml (0-100) H 05/04/24 17:00 Total Protein 5.7 gm/dl (6.0-8.3) L 05/04/24 17:00 Albumin 3.3 gm/dl (3.4-5.0) L 05/04/24 17:00 Globulin 2.4 gm/dl (2.5-4.0) L 05/04/24 17:00 Albumin/Globulin Ratio 1.4 (0.9-2) 05/04/24 17:00 Procalcitonin 0.40 ng/ml (0-0.5) 05/04/24 17:00 TSH 2.361 uIu/ml (0.300-4.500) 05/04/24 17:00 Urine Color Yellow 05/04/24 18:10 Urine Appearance Clear (Clear) 05/04/24 18:10 Urine pH 5.5 (4.5-7.5) 05/04/24 18:10 Ur Specific [place] 1.017 (1.000-1.030) 05/04/24 18:10 Urine Protein 1+ (Negative) H 05/04/24 18:10 Urine Glucose (UA) Negative (Negative) 05/04/24 18:10 Urine Ketones Negative (Negative) 05/04/24 18:10 Urine Blood Negative (Negative) 05/04/24 18:10 Urine Nitrite Negative (Negative) 05/04/24 18:10 Urine Bilirubin Negative (Negative) 05/04/24 18:10 Urine Urobilinogen Negative (Negative) 05/04/24 18:10 Ur Leukocyte Esterase Negative (Negative) 05/04/24 18:10 Urine WBC (Auto) 0-5 /hpf (0-5) 05/04/24 18:10 Urine RBC (Auto) 0-2 /hpf (0-2) 05/04/24 18:10 U Hyaline Cast (Auto) 3-5 /lpf (0-2) H 05/04/24 18:10 U Epithel Cells (Auto) 0-2 /hpf (0-2) 05/04/24 18:10 Urine Bacteria (Auto) None Seen (None Seen) 05/04/24 18:10 Adenovirus (PCR) Not Detected (NotDetected) 05/04/24 17:00 B. pertussis DNA (PCR) Not Detected (NotDetected) 05/04/24 17:00 B.parapertussis DNA PCR Not Detected (NotDetected) 05/04/24 17:00 C. pneumoniae DNA (PCR) Not Detected (NotDetected) 05/04/24 17:00 Coronavirus OC43 (PCR) Not Detected (NotDetected) 05/04/24 17:00 Coronavirus HKU1 (PCR) Not Detected (NotDetected) 05/04/24 17:00 Coronavirus 229E (PCR) Not Detected (NotDetected) 05/04/24 17:00 SARS-CoV-2 (PCR) Not Detected (NotDetected) 05/04/24 17:00 Coronavirus NL63 (PCR) Not Detected (NotDetected) 05/04/24 17:00 Human Metapneumovir PCR Not Detected (NotDetected) 05/04/24 17:00 Influenza Type A (PCR) Not Detected (NotDetected) 05/04/24 17:00 Influenza Type B (PCR) Not Detected (NotDetected) 05/04/24 17:00 M. pneumoniae (PCR) Not Detected (NotDetected) 05/04/24 17:00 Parainfluenza 1 (PCR) Not Detected (NotDetected) 05/04/24 17:00 Parainfluenza 2 (PCR) Not Detected (NotDetected) 05/04/24 17:00 Parainfluenza 3 (PCR) Not Detected (NotDetected) 05/04/24 17:00 Parainfluenza 4 (PCR) Not Detected (NotDetected) 05/04/24 17:00 RSV (PCR) Not Detected (NotDetected) 05/04/24 17:00 Entero/Rhino (PCR) Not Detected (NotDetected) 05/04/24 17:00 Impressions Chest X-Ray 05/04/24 16:47 SINGLE VIEW CHEST CLINICAL HISTORY: Generalized weakness FINDINGS: An AP, portable, upright chest radiograph is compared to study dated 02/29/2024. The patient is status post midline sternotomy. The heart is enlarged noting atherosclerotic calcification of the thoracic aorta. The pulmonary vasculature is noncongested. Chronic interstitial thickening is similar to previous. There is bibasilar scarring/atelectasis. No airspace consolidation or large pleural effusion is identified. No pneumothorax is seen. The skeletal structures are osteopenic. There are chronic/healed left-sided rib fractures. Arthritic change is seen in the shoulders. IMPRESSION: Cardiomegaly with no active disease in the chest. ACT 112: Negative or not required by law. Electronically signed by: Gonzales Alvarado M.D. 05/04/2024 5:19 PM Abdomen/Pelvis CT 05/04/24 18:08 CT SCAN OF THE ABDOMEN AND PELVIS WITH IV CONTRAST CLINICAL HISTORY: Generalized weakness. C. difficile infection. COMPARISON STUDY: Abdominal CT dated 10/06/2023. TECHNIQUE: Following the IV administration of 91 cc of Optiray 320, CT scan of the abdomen and pelvis is performed from the lung bases to the proximal femora. Images are reviewed in the axial, sagittal, and coronal planes. IV contrast was administered without complication. A dose lowering technique was utilized adhering to the principles of ALARA. The examination is degraded by motion artifact. CT DOSE: 2451.31 mGy.cm FINDINGS: Lung bases: The patient is status post midline sternotomy. The heart is enlarged and without pericardial effusion. The coronary arteries are densely calcified. There is a tiny hiatal hernia. The lung bases are clear noting bibasilar scarring/atelectasis. Liver: The contrast-enhanced liver is normal in size, contour, and attenuation. There is no intrahepatic biliary ductal dilatation. The hepatic veins and portal veins are patent. Gallbladder: Unremarkable. Spleen: Normal in size and attenuation. 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 The pancreas is mildly atrophic and otherwise grossly unremarkable. Adrenal glands: Unremarkable. Kidneys: The contrast enhanced kidneys demonstrate mild cortical atrophy and are without hydronephrosis. The kidneys enhance symmetrically. Abdominal vasculature: The abdominal aorta is normal in course and caliber noting moderate atherosclerotic calcification. Bowel: There is no bowel obstruction. The colon is normal in caliber. There is mild wall thickening throughout the colon with pericolonic infiltration. This is greatest involving the proximal descending colon, is consistent with a nonspecific pancolitis. There is mild colonic diverticulosis without CT evidence of acute diverticulitis. Metallic foreign bodies/clips are present within the proximal jejunum as seen on image #[id number]. A duodenal diverticulum is incidentally noted. The appendix is well-visualized and normal. Peritoneum: There is no intraperitoneal free air or abdominal ascites. Lymphadenopathy: None. Pelvic viscera: Evaluation of the pelvis is degraded by streak artifact from a right hip arthroplasty. The prostate gland is enlarged and heterogeneous. The bladder wall is thickened/trabeculated indicating chronic outlet obstruction. There is a fat containing right groin hernia. Skeletal structures: The skeletal structures are osteopenic. There is advanced lumbosacral spondylosis. There are bilateral pars defects at L5. Degenerative change and partial fusion is seen in the sacroiliac joints. Arthritic change is noted in the left hip. No lytic or blastic lesions are seen. A right hip arthroplasty is in place. IMPRESSION: 1. Findings are consistent a nonspecific pancolitis. Correlate clinically. 2. The colon is normal in caliber. 3. Cardiomegaly. 4. Metallic foreign bodies/clips are noted in the proximal jejunum. Correlate clinically. 5. Additional findings as above. ACT 112: Negative or not required by law. Electronically signed by: Gonzales Alvarado M.D. 05/04/2024 6:[address] 05/04/24 18:08 CT SCAN OF THE BRAIN WITHOUT IV CONTRAST CLINICAL HISTORY: Generalized weakness. COMPARISON STUDY: CT of the brain dated 07/01/2021. TECHNIQUE: Unenhanced axial CT scan of the brain is performed from the vertex to the skull base. A dose lowering technique was utilized adhering to the principles of ALARA. FINDINGS: Brain parenchyma: There is age-related involutional change noting moderate subcortical and periventricular microangiopathic disease. There is no hemorrhage, mass effect, or evidence of acute territorial ischemia by CT criteria. Mineralization is noted in the basal ganglia. Jain-white matter differentiation is preserved. No extra-axial fluid collection is seen. Ventricles, sulci, cisterns: Prominent secondary to involutional change. Intracranial vasculature: There is atherosclerotic calcification of the cavernous carotid and vertebral arteries. Calvarium: Unremarkable. Sinuses and mastoids: The visualized paranasal sinuses are clear. There are left larger than right massive effusions. Orbits: The bony orbits are grossly intact. There are bilateral ocular lens implants. IMPRESSION: There is no hemorrhage, mass effect, or evidence of acute territorial ischemia by CT criteria. ACT 112: Negative or not required by law. Electronically signed by: Gonzales Alvarado M.D. 05/04/2024 6:38 PM Diagnostic Findings EKG as per my interpretation : Rate 110, A-fib, LAD, LAFB, nonspecific T wave abnormalities
[2024-05-04] MEDS ORDERED: PROMETHAZINE HCL 6.25 MG in SODIUM CHLORIDE 0.9% 50 ML IV PRN (21:07)
[2024-05-04] MEDS ORDERED: GLUCAGON FOR INJ 1 MG VIAL SQ PRN (21:10)
[2024-05-04] MEDS ORDERED: GLUCOSE 10 TAB/TUBE PO PRN (21:10)
[2024-05-04] MEDS ORDERED: DEXTROSE 50% 50 ML SYRINGE IV PRN (21:10)
[2024-05-04] MEDS ORDERED: GLUCOSE 40% GEL 15 GM TUBE PO PRN (21:10)
[2024-05-04] MEDS ORDERED: CARBOHYDRATES FOR HYPOGLYCEMIA PO PRN (21:10)
[2024-05-04] MEDS: METOPROLOL SUCC 25MG EXT REL TAB PO SCH (22:28)
[2024-05-04] MEDS: DOXYCYCLINE HYCLATE 100 MG in DEXTROSE 5% MINI-B 100 ML IV STA (22:29)
--- NOTE | 2024-05-04 23:15 | Ultrasound Report ---
ULTRASOUND BILATERAL LOWER EXTREMITY VENOUS CLINICAL HISTORY: Lower extremity edema. COMPARISON STUDY: Bilateral lower extremity venous ultrasound dated 01/25/2023 TECHNIQUE: Real-time, grayscale, and color Doppler sonography of the deep veins of the right and left lower extremity was performed from the inguinal crease to the calf. Compression and augmentation wer e utilized. FINDINGS: There is no sonographic evidence of deep venous thrombosis identified in the right or left lower extremity. The common femoral, superficial femoral, and popliteal veins are patent and normally compressible bilaterally. The greater saphenous vein and the profunda femoris vein at the junction w ith the common femoral vein are clear in both legs. The visualized calf veins are patent bilaterally. Soft tissue edema is present in both legs. There is a 6.1 x 1.3 x 6.8 cm fluid collection along the anterior aspect of the right knee, likely representing a joint effusion. IMPRESSION: 1. There is no sonographic evidence of deep venous thrombosis identified in the right or left lower e xtremity. 2. There is a 6.8 cm fluid collection along the anterior aspect of the right knee, likely representin g a joint effusion. Correlate clinically. ACT 112: Negative or not required by law. Electronically signed by: Gonzales Alvarado M.D. 05/04/2024 11:12 PM
--- OUTSIDE RECORDS SUMMARY | 2024-05-04 23:37 | External Medical Summary | Summary of Care ---
Author Name Unknown Organization [facility] Address [address] [place] [address] Phone [phone] Care Team Providers Care Supervisor Television Chassis Repair Name Role Phone iMchael Hinton MD Primary Care Provider [phone] Reason for Visit * Reason Comments [facility]: Acute Encounter Details Date Type Department Care Team (Late st Contact Info) Description 05/04/2024 3:15 PM EDT [facility] Visit [facility], [facility] [address] [facility] [place] [address] [facility], Nurse [facility] [address] [facility] [place] [address] Allergies Active Allergy Reactions Criticality Noted Date Comments Fabiano Inhibitors Cough 06/09/2017 Carbidopa W-Levodopa 03/17/2021 Constipation Nsaids Rash 05/17/2018 Contraindicated per flare stitcher documented as of this encounter (statuses as [...] mitral valve regurgitation,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 Coronary artery [...] Sign Reading Time Taken Comments Blood Pressure 132/70 05/04/2024 3:16 PM EDT Pulse 96 05/04/2024 3:16 PM EDT Temperature 38.4 C (101.2 F) 05/04/2024 3:16 PM EDT Respiratory Rate 16 05/04/2024 3:16 PM EDT Oxygen Saturation 99% 05/04/2024 3:16 PM EDT Inhaled Oxygen Concentration - - Weight - - Height - - Body Mass Index - - documented in this encounter Progress Notes * Yonatan Rooney, KARLA - 05/04/2024 3:15 PM EDT Images from the original note were not included. [facility] Parts Counter AssociateSupervisor Costuming Visit Date: 05/04/2024 Time: 3:15 PM Name: Jesus Jose : 1945 Current Concerns: Situation: Pt seen today by [facility] at [place] supervisor plastics for acute visit. Background: PMH includes: HTN, CHF, CKD Stage 3b, pacemaker, T2DM, Dementia associated with Parkinson's disease, BPH Assessment: Pt is C. Diff +, per started Vanc yesterday reports that wound RN was out to see pt yesterday for dressings to LLE and stated pt appeared "very bad" Pt reports that RLE edema is "Worse than ever before" Increased fatigue, weakness, loss of balance starting yesterday 05/03 Pt "nearly fell" getting out of car yesterday, hit back and hand off of door of vehicle, denies hitting head, states pt may have hit head without LOC Reports chills, feeling cold beginning today 05/04 Pt and daughter unable to safely transfer pt at this time stating balance and weakness are "too bad" Pt c/o 9/10 pain to RLE, states continuous dull aching pain from R knee to foot Pt had vascular duplex yesterday- negative for DVT Pt A&O Temp 101.2 F BP, SpO2 WNL Heart rate tachycardic, rhythm irregular Lungs diminished, crackles to RLL on auscultation SOB with exertion Abdomen firm +4 edema to RLE, +2 edema to LLE LLE open, draining moderate amount of clear fluid BLE cool to touch, flaking Ruddiness to BLE Per pt and report: Voiding without difficulty Denies burning, pain with urination C.Diff +, having 6+ liquid BM daily B&B incontinence beginning today- unable to keep wound dressing on due to contamination with BM Appetite fair Taking fluids ok TT to Dr Ceron Provided Dr Ceron with photo of An RN placed call to Dr Osmany Ceron requested pt weight today- reports pt has not been weighing recently due fear of falls with loss of balance Pt heavy one assist to stand for this RN, with multiple attempts With two assist and RW pt ambulated 2 feet to scale, stood upon scale with this RN holding pt for stability Weight 168.4 lb- question if weight is accurate due to CGA by this RN Weight Trend: Through TPC discussion Dr Ceron and this RN reviewed care options with pt, pt and pt daughter: Management with IV diuretics today, labs, continuation of Vanc, continued close monitoring by [facility] Vs Transport to ED for evaluation Pt prefers management at home, however pt and daughter agree that they are unable to safely transfer pt at this time and feel it would be best for pt to be transported to [facility] by EMS Pt placed call to 911 for transport to [facility], this RN called report to Amanda at [facility] ED Problems/Symptoms: Review of Systems Constitutional: Positive for chills, fatigue and fever. HENT: Negative. Respiratory: Positive for shortness of breath (with exertion). Cardiovascular: Positive for leg swelling (+4 to RLE, +2 to LLE). Gastrointestinal: Positive for abdominal distention. Genitourinary: Negative. Skin: Positive for wound (LLE). Neurological: Positive for weakness. Psychiatric/Behavioral: Negative. Physical Exam: BP 132/70 (BP Site: Right Arm, BP Position: Sitting, BP Cuff Size: Regular) | Pulse 96 | Temp (!) 38.4 C (101.2 F) (Tympanic) | Resp 16 | SpO2 99% Pain 9, continuous dull pain to RLE Physical Exam Cardiovascular: Rate and Rhythm: Tachycardia present. Rhythm irregular. Pulmonary: Breath sounds: Rales (RLL) present. Abdominal: General: There is distension. Musculoskeletal: Right lower leg: Edema present. Skin: General: Skin is warm and dry. Capillary Refill: Capillary refill takes 2 to 3 seconds. Neurological: General: No focal deficit present. Mental Status: He is alert. Psychiatric: Mood and Affect: Mood normal. MAHC-10 Completed this Visit: No. No falls since last visit Treatment/Plan: Transport to [facility] ED for eval Home Interventions Provided: Consulted PCP/Specialist Reinforced current Plan of Care, including self-management and medication regimen Arranged Next Level of Care: Emergency Department Was the Transfer Center contacted? Yes Patient Needs to Remember: Call [facility] at [phone] with any red flags, changes in condition, or concerns. Referrals Needed: N/A Follow Up: Is there cellular connectivity/connectivity in the home? Yes Does the patient have internet in the home? Yes Patient encouraged to call the intake phone number for all urgent but not emergent issues. Berny Power PA-C scheduled to follow up with patient on 05/08 . Yonatan Rooney RN 05/04/2024 3:15 PM documented in this encounter Plan of Treatment Upcoming Encounters Date Type Department Care Team (Late st Contact Info) Description 05/05/2024 9:45 AM EDT Scheduled Telephone [facility], [address] [address] Region, Nurse [address] [place] [address] 05/06/2024 9:15 AM EDT Scheduled Telephone [facility], [place] [address] [place] [address] Coordinator, [place] [address] [place] [address] 05/08/2024 2:30 PM EDT Telemedicine [facility], [place] [address] [address] [place] [address] Berny Power PA-C [address] [place] [address] Meri Mae, Community Health Seasonal Customer Service Associate [address] [place] [address] 05/09/2024 7:00 AM EDT Laboratory Lab Mobile Phlebotomy [facility] [address] [email or web address] [facility] [address] [place] [address] Mvmg, [facility] Draw [address] [facility] [place] [address] 05/23/2024 7:00 AM EDT Laboratory Lab Mobile Phlebotomy [facility] [address] [facility] [place] [address] Mvmg, [facility] Draw [address] [facility] [place] [address] 05/31/2024 10:00 AM EDT [facility] Visit [facility], [facility] [place] [address] Peggy De RN 132 [facility] [place] [address] 06/06/2024 7:00 AM EDT Laboratory Lab Mobile Phlebotomy [facility] 25[address] [facility] [place] [address] Mvmg, [facility] [address] [facility] [place] [address] 06/20/2024 7:00 AM EDT Laboratory Lab Mobile Phlebotomy [facility] [address] [place] [address] [address] Mvmg, [facility] [address] [facility] [place] [address] 07/04/2024 7:00 AM EDT Laboratory Lab Mobile Phlebotomy [facility] [address] [address] Mvmg, [facility] [address] [facility] [place] [address] 07/18/2024 7:00 AM EDT Laboratory Lab Mobile Phlebotomy [facility] [address] [facility] [place], [place] [address] Mvmg, [facility] Draw [address] [facility] [place] [address] 08/01/2024 7:00 AM EDT Laboratory Lab Mobile Phlebotomy [facility] [address] [facility] [place], [place] [address] Mvmg, [facility] Draw [address] [facility] [place] [address] 08/13/2024 8:00 AM EDT Office Visit Cardiology, [facility] [address] [place] [address] Dominick Benz DO [address] [place] [address] 08/15/2024 7:00 AM EDT Laboratory Lab Mobile Phlebotomy [facility] [address] [facility] [place] [address] Mvmg, [facility] Draw [address] [facility] [place] [address] 08/29/2024 7:00 AM EST Laboratory Lab Mobile Phlebotomy [facility] [address] [facility] [place] [address] Mvmg, [facility] Draw [address] [facility] [place] [address] 08/29/2024 8:00 AM EST Hospital Encounter ENDO [facility], Endoscopy Room [facility] [address] [place] [phone] Arnie Shrestha MD [address] [place] [address] 08/29/2024 8:00 AM EST - 08/29/2024 8:30 AM EST Surgery ENDO [facility], Endoscopy Room [facility] [address] [place] [phone] Arnie Shrestha MD 132 [facility] [place] [address] COLONOSCOPY FLEXIBLE PROXIMAL DIAGNOSTIC 09/02/2024 1:45 PM EST Office Visit Dermatology [facility] 200 [facility] [place] [address] Osvaldo Liu MD 200 [facility] [place] [address] 09/12/2024 7:00 AM EST Laboratory Lab Mobile Phlebotomy [facility] 25[address] [facility] [place] [address] Mvmg, G[facility] Draw 25[address] [facility] [place] [address] 09/17/2024 11:15 AM EST Office Visit Urology, [facility] [place] [address] Kalpesh Funes MD [address] [place] [address] 09/26/2024 7:00 AM EST Laboratory Lab Mobile Phlebotomy [facility] [address] [employer] [place] [address] Mvmg, [facility] Draw 25[address] [facility] [place] [address] 03/12/2025 3:30 PM EDT Home Visit Care at Home [address] [place] [address] Betina Jacob PA-C [address], [place] [id number] Scheduled Procedures Name Priority Associated Diagnoses Date/Ti [...] Additional history exists CKD PHOS USE SMARTSET 53473 12/07/202411/23, 12/26/2022, 06/21/2021 Depression Screening 03/07/2025 03/07/2024 CKD HGB USE SMARTSET 57423 05/01/202505/01, 05/01/2024, 04/23/2024, Additional history exists DTaP,Tdap,and [...] this encounter Medical Devices Implanted Type Area Tube Coverer Device Identifier Shelf Expiration Date Model / Serial / Lot Lens Intraoc 22.5 - [id number] - [id number] Implanted:Qty: 1 on 05/22/2018 by Jasbir Maurer MD at OR [facility] Right: Eye BAUSCH [employer] LOMB 11/22/2022 [id number] / [id number] / [id number] Lens Intraoc 21.0 - [id number] - [id number] Implanted:Qty: 1 on 06/05/2018 by Jasbir Maurer MD at OR [facility] Left: Eye BAUSCH & LOMB 12/20/2022 [id number] / [id number] / Duraclip 16mm Xlg Repostn - [id number] Implanted:Qty: 1 on 04/12/2024 by Edilberto Lujan MD at OR [facility] CONMED NACHO [id number] 12/08/2024 [id number] / / [id number] Duraclip 16mm Xlg Repostn - [id number] Implanted:Qty: 1 on 04/12/2024 by Edilberto Lujan MD at OR [facility] CONMED NACHO [id number] 12/08/2024 [id number] / / [id number] Duraclip 16mm Xlg Repostn - [id number] Implanted:Qty: 1 on 04/12/2024 by Edilberto Lujan MD at OR [facility] CONMED NACHO [id number] 12/08/2024 [id number] / / [id number] documented as of this encounter Additional Health [...] on File Name Relationship Healthcare Agent [facility] Danny Jose Spouse Health Care Power of Attor mayela Care Teams Supervisor Television Chassis Repair Relationship Specialty Start Date End Date Michael Hinton MD [address] [place] [address] PCP - General Family Medicine 08/07/17 documented as of this encounter
--- OUTSIDE RECORDS SUMMARY | 2024-05-04 23:37 | External Medical Summary | Summary of Care ---
Author Name Unknown Organization [facility] Address [address] [place] [address] Phone [phone] Care Team Providers Care Cleaning Specialist Name Role Phone Michael Hinton MD Primary Care Provider [phone] Reason for Visit * Reason Comments [facility]: Acute Encounter Details Date Type Department Care Team (Late st Contact Info) Description 05/04/2024 3:15 PM EDT Home Visit [facility], [facility] 132 [facility] [place] [address] [facility], Nurse [facility] 132 [facility] [place] [address] Allergies Active Allergy Reactions Criticality Noted Date Comments Fabiano Inhibitors Cough 06/09/2017 Carbidopa W-Levodopa 03/17/2021 Constipation Nsaids Rash 05/17/2018 Contraindicated per county director documented as of this encounter (statuses as [...] mitral valve regurgitation,Coron daniel artery disease involving cherokee coronary artery of cherokee heart without angina pectoris,Stage 3b chronic kidney [...] 07/28/2021 Last Assessment & Plan: Follows with [facility] hematology Routine labs monitored by [...] knees 03/21/2018 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 Coronary artery [...] 38.4 C (101.2 F) 05/04/2024 3:16 PM E DT Respiratory Rate 16 05/04/2024 3:16 PM EDT Oxygen Saturation 99% 05/04/2024 3:16 PM EDT Inhaled Oxygen Concentration - - Weight - - Height - - Body Mass Index - - documented in this encounter Progress Notes * Yonatan Rooney, KARLA - 05/04/2024 3:15 PM EDT Images from the original note were not included. [facility] Siding Coreboard InspectorBelt Repairer Visit Date: 05/04/2024 Time: 3:15 PM Name: Jesus Jose : 1945 Current Concerns: Situation: Pt seen today by Ej at [place] spooling machine operator for acute visit. Background: PMH includes: HTN, [...] continuation of Vanc, continued close monitoring by [facility] Vs Transport to ED for evaluation Pt prefers management at home, however pt and daughter agree that they are unable to safely transfer pt at this time and feel it would be best for pt to be transported to [facility] by EMS Pt placed call to 911 for transport to [facility], this RN called report to Amanda at [facility] ED Problems/Symptoms: Review of Systems Constitutional: Positive [...] since last visit Treatment/Plan: Transport to [facility] ED for eval Home Interventions Provided: Consulted PCP/Specialist Reinforced current Plan of Care, including self-management and medication regimen Arranged Next Level of Care: Emergency Department Was the Transfer Center contacted? Yes Patient Needs to Remember: Call [facility] at [phone] with any red flags, changes in condition, [...] AM EDT Scheduled Telephone [facility], [address] [address] Region, Nurse [address] [place] [address] 05/06/2024 9:15 AM EDT Scheduled Telephone [facility], [place] [address] [place] [address] Coordinator, [place] [address] [place] [address] 05/08/2024 2:30 PM EDT Telemedicine [facility], [place] [address] [address] [place] [address] Berny Power PA-C [address] [place] [address] Meri Mae, Community Health Heat Curer [address] [place] [address] 05/09/2024 7:00 AM EDT Laboratory Lab Mobile Phlebotomy [facility] [address] [employer] [facility] [address] [place] [place] [address] Mvmg, Gml Mobile Home Draw 2520 [facility] [place] [address] 05/23/2024 7:00 AM EDT Laboratory Lab Mobile Phlebotomy [facility] 25[address] [facility] [place] [address] Mvmg, [facility] Draw 25[address] [facility] [place] [address] 05/31/2024 10:00 AM EDT Home Visit [facility], [facility] [address] [facility] [place] [address] Peggy De RN 132 [facility] [place] [address] 06/06/2024 7:00 AM EDT Laboratory Lab Mobile Phlebotomy [facility] 25[address] [facility] [place] [address] Mvmg, Gml Mobile Home Draw 25[address] [facility] [place] [address] 06/20/2024 7:00 AM EDT Laboratory Lab Mobile Phlebotomy [facility] [address] [place] [address] [address] Mvmg, Gml Mobile Home Draw 25[address] [facility] [place] [address] 07/04/2024 7:00 AM EDT Laboratory Lab Mobile Phlebotomy [facility] [address] [place] [address] [address] Mvmg, Gml Mobile Home Draw 25[address] [facility] [place] [address] 07/18/2024 7:00 AM EDT Laboratory Lab Mobile Phlebotomy [facility] 25[address] [facility] [place], [place] [address] Mvmg, Gml Mobile Home Draw [address] [facility] [place] [address] 08/01/2024 7:00 AM EDT Laboratory Lab Mobile Phlebotomy [facility] 25[address] [facility] [place], [place] [address] Mvmg, Gml Mobile Home Draw [address] [facility] [place] [address] 08/13/2024 8:00 AM EDT Office Visit Cardiology, [facility] [address] [place] [address] Dominick Benz DO [address] [place] [address] 08/15/2024 7:00 AM EDT Laboratory Lab Mobile Phlebotomy [facility] [address] [facility] [place] [address] Mvmg, Gml Mobile [facility] Draw [address] [facility] [place] [address] 08/29/2024 7:00 AM EST Laboratory Lab Mobile Phlebotomy [facility] [address] [facility] [place] [address] Mvmg, Gml Mobile Home Draw [address] [facility] [place] [address] 08/29/2024 8:00 AM EST Hospital Encounter ENDO [facility], Endoscopy Room [facility] [address] [place] [phone] Arnie Shrestha MD [address] [place] [address] 08/29/2024 8:00 AM EST - 08/29/2024 8:30 AM EST Surgery ENDO [facility], Endoscopy Room [facility] [address] [place] [phone] Arnie Shrestha MD 132 [facility] [place] [address] COLONOSCOPY FLEXIBLE PROXIMAL DIAGNOSTIC 09/02/2024 1:45 PM EST Office Visit Dermatology [facility] 200 [facility] [place] [address] Osvaldo Liu MD 200 [facility] [place] [address] 09/12/2024 7:00 AM EST Laboratory Lab Mobile Phlebotomy [facility] 25[address] [facility] [place] [address] Mvmg, Gml Mobile Home Draw 25[address] [facility] [place] [address] 09/17/2024 11:15 AM EST Office Visit Urology, [facility] [address] [facility] [place] [address] Kalpesh Funes MD [address] [place] [address] 09/26/2024 7:00 AM EST Laboratory Lab Mobile Phlebotomy [facility] 2520 [employer] [place] [address] Mvmg, Gml Mobile Home Draw 2520 [facility] [place] [address] 03/12/2025 3:30 PM EDT Home Visit Care at Home [address] [place] [address] Betina Jacob PA-C [address], [place] [id number] Scheduled Procedures Name Priority Associated Diagnoses Date/Ti [...] Additional history exists CKD PHOS USE SMARTSET 13426 12/07/202411/23, 12/26/2022, 06/21/2021 Depression Screening 03/07/2025 03/07/2024 CKD HGB USE SMARTSET 07179 05/01/202505/01, 05/01/2024, 04/23/2024, Additional history exists DTaP,Tdap,and [...] this encounter Medical Devices Implanted Type Area Police Magistrate Device Identifier Shelf Expiration Date Model / Serial / Lot Lens Intraoc 22.5 - [id number] - [id number] Implanted:Qty: 1 on 05/22/2018 by Jasbir Maurer MD at OR [facility] Right: Eye BAUSCH & LOMB 11/22/2022 [id number] / [id number] / [id number] Lens Intraoc 21.0 - [id number] - [id number] Implanted:Qty: 1 on 06/05/2018 by Jasbir Maurer MD at OR [facility] Left: Eye BAUSCH & LOMB 12/20/2022 [id number] / [id number] / Duraclip 16mm Xlg Repostn - [id number] Implanted:Qty: 1 on 04/12/2024 by Edilberto Lujan MD at OR [facility] CONMED NACHO [id number] 12/08/2024 [id number] / / [id number] Duraclip 16mm Xlg Repostn - [id number] Implanted:Qty: 1 on 04/12/2024 by Edilberto Lujan MD at OR [facility] [employer]MED [employer] [id number] 12/08/2024 [id number] / / [id number] Duraclip 16mm Xlg Repostn - [id number] Implanted:Qty: 1 on 04/12/2024 by Edilberto Lujan MD at OR [facility] CONMED [employer]O [id number] 12/08/2024 [id number] / / [id number] documented as of this encounter Additional Health [...] Agents on File Name Relationship Healthcare Agent [facility] Danny Jose Spouse Health Care Power of Attor mayela Care Teams Cleaning Specialist Relationship Specialty Start Date End Date Michael Hinton MD 132 [place] [address] PCP - General Family Medicine 08/07/17 documented as of this encounter
[2024-05-05] MEDS ORDERED: Nursing to Pharmacy Communication SCH (00:45)
[2024-05-05] MEDS: INSULIN ASPART PER UNIT CHARGE SC SCH (00:59)
[2024-05-05] MEDS: ACETAMINOPHEN 325 MG TAB PO PRN (01:47)
[2024-05-05] MEDS: ALBUMIN 25% 12.5 GM/50 ML VIAL IV ONE (04:02)
[2024-05-05 07:15] LABS: Basophils # (auto) 0.02 K/uL (0.00-0.20); Basophils % (auto) 0.2 %; Eosinophils # (auto) 0.01 K/uL (0.00-0.50); Eosinophils % (auto) 0.1 %; Hematocrit (blood only) 25.1 % (42.0-52.0); Hemoglobin 8.1 g/dl (14.0-18.0); Immature Granulocytes # (auto) 0.09 K/uL (0.01-0.20); Lymphocytes # (auto) 0.51 K/uL (1.20-3.40); Lymphocytes % (auto) 5.9 %; Mean Corpuscular Hemoglobin 31.3 pg (25.0-34.0); Mean Corpuscular Hgb Conc 32.3 g/dL (32.0-36.0); Mean Corpuscular Volume 96.9 fL (80.0-100.0); Mean Platelet Volume 9.3 fL (9.4-12.4); Monocytes # (auto) 0.62 K/uL (0.11-0.59); Monocytes % (auto) 7.2 %; Neutrophils # (auto) 7.35 K/uL (1.40-6.50); Neutrophils % (auto) 85.6 %; Platelet Count 132 K/uL (130-400); RDW Coefficient of Variation 15.7 % (11.5-14.5); RDW Standard Deviation 55.7 fL (36.4-46.3); Red Blood Count 2.59 M/uL (4.70-6.10)
[2024-05-05] MEDS: AMANTADINE HCL 100 MG CAPSULE PO SCH (07:55)
[2024-05-05] MEDS: ADVANCED PROBIOTIC 625 MG CAPSULE PO SCH (07:55)
[2024-05-05] MEDS: ATORVASTATIN 40 MG TAB PO SCH (07:55)
[2024-05-05 07:56] LABS: BUN Creatinine Ratio 13.5 (10-20); Calcium 7.9 mg/dl (8.6-10.3); Creatinine Clr Calc Pharmacy 36.5 ml/min; Est GFR (African American) 48.3 ml/min; Est GFR (Non-African American) 41.7 ml/min; Potassium 3.7 mmol/L (3.5-5.1)
[2024-05-05] MEDS: DONEPEZIL HCL 10 MG TAB PO SCH (07:56)
[2024-05-05] MEDS: ESCITALOPRAM OXALATE 20 MG TAB PO SCH (07:56)
[2024-05-05] MEDS: PANTOprazole 40 MG TAB PO SCH (07:56)
[2024-05-05] MEDS: FINASTERIDE 5 MG TAB PO SCH (07:56)
--- NOTE | 2024-05-05 08:17 | Orthopedic Consultation ---
Date of Service May 05, 2024 Assessment & Plan (1) Osteoarthritis of right knee: I discussed the diagnosis and treatment options with him at bedside. He would like to have another injection of his right knee. We will do an aspiration first and then an injection of his right knee. The medications were called into his room. We will inject the knee later today or tomorrow. History of Present Illness Reason for Consultation: Osteoarthritis of the right knee. Requesting Physician: . Attending Physician: Seven Amador MD Jesus is a 79-year-old male who lives in a house with his . He normally ambulates with a walker. He has been doing with chronic right knee pain. He has had injections before in his right knee and they were beneficial. He is admitted to the hospital for medical reasons. He is having knee pain. Orthopedics was consulted to evaluate and treat.. Allergies Allergy/AdvReac Type Severity Reaction Status Date / Time NSAIDS (Non-Steroidal Allergy Intermediate Rash Verified 05/04/24 18:06 Anti-Inflamma YONATAN Inhibitors AdvReac Intermediate Cough Verified 05/04/24 18:06 carbidopa AdvReac Intermediate constipatio Verified 05/04/24 18:06 n levodopa AdvReac Intermediate constipatio Verified 05/04/24 18:06 n Home Medications Medication Instructions Recorded Confirmed Type amantadine HCl 100 mg capsule 100 mg PO QAM 05/22/20 05/04/24 History torsemide 20 mg tablet 20 mg PO QAM 11/28/22 05/04/24 History dutasteride 0.5 mg capsule 0.5 mg PO QAM 01/24/23 05/04/24 History donepezil 10 mg tablet 10 mg PO QAM 10/06/23 05/04/24 History atorvastatin 40 mg tablet 40 mg PO QAM 01/08/24 05/04/24 History escitalopram oxalate 20 mg tablet 20 mg PO QAM #90 tabs 02/09/24 05/04/24 Rx acetaminophen 500 mg tablet 1,000 mg PO Q8H PRN Pain 02/29/24 05/04/24 History betamethasone dipropionate 0.05 % 1 applic topical BID 02/29/24 05/04/24 History topical ointment cholecalciferol (vitamin D3) 25 25 mcg PO QAM 02/29/24 05/04/24 History mcg (1,000 unit) capsule levalbuterol tartrate 45 1 puff inhalation Q6H PRN Wheezing 02/29/24 05/04/24 History mcg/actuation aerosol inhaler pantoprazole 40 mg tablet,delayed 40 mg PO QAM 02/29/24 05/04/24 History release vitamin B complex 1 cap PO DAILY 02/29/24 05/04/24 History metoprolol succinate 25 mg 25 mg PO QAM #90 tabs 04/30/24 05/04/24 Rx tablet,extended release 24 hr lactobacillus combination no.4 3 3,000 mmu cells PO QAM 05/04/24 05/04/24 History billion cell capsule (Probiotic) Past Med/Surg History Problem List Elevated brain natriuretic peptide (BNP) level (Acute) Atrial fibrillation with rapid ventricular response (Acute) Generalized weakness (Acute) Acute GI bleeding (Acute) Anemia (Acute) Transfusion-dependent anemia Elevated lipase Melena Acute on chronic anemia CKD (chronic kidney disease) (Acute) Symptomatic anemia (Acute) Acute GI bleeding (Acute) Blood in both ear canals Osteoarthritis of right knee Bilateral chronic serous otitis media Generalized weakness (Acute) Diarrhea (Acute) Ambulatory dysfunction (Acute) Anemia Paroxysmal A-fib Acute heart failure with preserved ejection fraction (HFpEF) Lumbar transverse process fracture Hypovolemic shock Encounter for pre-operative examination Colon polyps Acute kidney injury superimposed on CKD Heme positive stool Acute blood loss anemia Symptomatic anemia (Acute) Acute hypotension (Acute) Acute GI bleeding (Acute) Status post fall Chronic heart failure with preserved ejection fraction (HFpEF) Hypervolemia (Acute) ETD (eustachian tube dysfunction) Encounter for pre-operative examination Immunosuppressed status Dental infection Generalized weakness (Acute) Congestive heart failure (Acute) Hypoxia (Acute) Hematuria Electrolyte imbalance Diarrhea Coronary artery disease COPD (chronic obstructive pulmonary disease) (Acute) Hypomagnesemia (Acute) DVT prophylaxis Hypomagnesemia CHF (congestive heart failure) (Acute) Acute respiratory failure with hypoxia SOB (shortness of breath) History of total right hip replacement 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 Dementia (Acute) Sensorineural hearing loss (SNHL) of both ears S/P triple vessel bypass (2011) [facility] w/Dr. Weathers; f/u Dr. [place], [facility] Moderate mitral regurgitation f/u KWABENA Fritz 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Acute) Primary parkinsonism (Acute) GERD (gastroesophageal reflux disease) HTN (hypertension) CKD (chronic kidney disease) stage 3, GFR 30-59 ml/min (Acute) Diabetes type 2, controlled Dyslipidemia BPH (benign prostatic hyperplasia) Medical History GI bleed 09/2023 Anemia 09/2023 inpt at [facility] Atrial fibrillation f/u KWABENA Fritz Eliquis on hold due to anemia History of blood transfusion 10/06/23- was admitted at [facility], low blood count, reason for upcoming procedure 03/24/23, "he's bleeding somewhere, has a low blood count, not sure where losing it from"; f/u Dr. 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 History of pneumonia end of 01/2023, found in lt. 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 Parkinson's>no current issues Diastolic dysfunction Lower extremity edema HUNTER (iron deficiency anemia) Ambulatory dysfunction Seasonal allergies Thoracic aortic aneurysm sx in 2011, at [facility] Lumbar spondylosis MUSTAFA (dyspnea on exertion) inh prn Coronary aneurysm (2011) Per cardio records CAD with CABG in 2011 (CHILDS to LAD and exclusion of RCA aneurysm Adverse reaction to anesthetic agent 2011 w/hip replacement>hallucinated for 3 days Orthostatic hypotension (07/2019) Peripheral arterial disease Recurrent cellulitis of lower extremity reason for daily cephalexin Anxiety CAD (coronary artery disease) history of CABG (CHILDS to LAD and exclusion of a right coronary artery aneurysm), 2011 at [facility]. Surgical History History of carpal tunnel release of both wrists History of esophagogastroduodenoscopy (EGD) Hx of colonoscopy Hx of bilateral cataract extraction History of neck surgery [facility] w/Dr. Pacheco; ROM-"can't turn it very far side to side nor move it up or down very far" S/P wrist surgery S/P CABG (coronary artery bypass graft) (2012) CHILDS, "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 History of right hip replacement H/O foot surgery reconstructive sx on rt. foot H/O eye surgery numerous when he was young Family History Unknown No problems noted. Father Hypertension, Onset Age: 40 at 40 Mother Hypertension COPD (chronic obstructive pulmonary disease) Diabetes Brother Allergies Asthma Denies family history of Prostate cancer Hearing loss No family history of adverse response to anesthesia No family history of bleeding disorder Heart disease Cancer Stroke Social History Smoking Status: Never smoker Tobacco Type: Cigars Second Hand Exposure: No; Do You Dip or Chew Tobacco: No; Hx Alcohol Use: No Hx Substance Use: No Preferred Language: Macedonian Communication Ability: Effective Communication Ability Comment: Hard of hearing Service Dispatcher Required: No Beliefs That Will Affect Care: None marital status: Current Living Situation: Spouse Current Living Situation Comment: Lives at home with spouse Feels Safe at Home: Yes Safety Concerns: Feels Safe At This Time Assistive Devices: Hearing Aid - Bilateral, Oxygen - at Night and Walker Review of Systems All systems reviewed & are unremarkable except as noted in HPI & below. Physical Exam On physical examination the right knee, he is range of motion from 10 to 105 degrees. No instability he has a painful effusion. No signs of infection.. Constitutional WD/WN, vitals as above Eyes PERRL, conjunctivae normal, anicteric sclerae ENMT external ear and nose normal, oropharynx normal Neck trachea midline, no thyromegaly Respiratory normal respiratory effort Cardiovascular RRR, no murmur, no edema Gastrointestinal (Abdomen) normal bowel sounds, soft, nontender, no hepatosplenomegaly Psychiatric A+Ox3, euthymic affect Results & Data Results & Data Laboratory Results . Diagnostic Findings X-rays of the right knee show advanced osteoarthritis with joint space narrowing osteophyte formation and [id number] tubulation. PG Care Time/CCT Total # of Minutes Spent Total Time Spent with Patient: Total time spent is greater than 50% in coordination of care (as documented) at patient's floor/unit and/or counseling patient: Coding Level of Care Code 25098 IN/OBS CONSULT LVL 4,60M Diagnoses Osteoarthritis of right knee M17.11
--- NOTE | 2024-05-05 08:42 | XRay Report ---
RIGHT KNEE 3 VIEWS HISTORY: Right knee swelling COMPARISON: None. FINDINGS: There is no fracture or dislocation. There is a moderate right knee effusion. No significan t soft tissue swelling. Moderate osteoarthritis the medial compartment of the knee. No radiopaque for eign bodies. IMPRESSION: 1. No fracture or dislocation within the right knee. 2. Moderate knee effusion. ACT 112: Negative or not required by law. Electronically signed by: José Miguel Rock M.D. 05/05/2024 8:41 AM
[2024-05-05] MEDS: CHERRY SYRUP 5 ML UDP PO SCH (11:53)
[2024-05-05] MEDS: VANCOMYCIN HCL 125 MG/2.5ML SOLN PO SCH (11:53)
--- NOTE | 2024-05-05 12:47 | Electrocardiogram Report ---
Test Reason : Blood Pressure : / mmHG Vent. Rate : 111 BPM Atrial Rate : 000 BPM P-R Int : 000 ms QRS Dur : 088 ms QT Int : 346 ms P-R-T Axes : 000 -46 025 degrees QTc Int : 470 ms Sinus tachycardia with frequent Premature atrial complexes Left axis deviation Abnormal ECG When compared with ECG of 03-MAR-2024 09:32, Nonspecific T wave abnormality no longer evident in Lateral leads Confirmed by Tonio Ernandez ([id number]) on 05/05/2024 12:47:18 PM Referred By: REFERRED SELF Confirmed By:Tonio Ernandez
[2024-05-05] MEDS ORDERED: DOXYCYCLINE HYCLATE 100 MG in DEXTROSE 5% MINI-B 100 ML IV ONE (14:17)
--- NOTE | 2024-05-05 14:23 | Hospitalist Progress Note ---
Date of Service May 05, 2024 Assessment & Plan (1) Atrial fibrillation with rapid ventricular response: Plan: C. difficile colitis --CT ABD:Findings are consistent a nonspecific pancolitis. Correlate clinically. The colon is normal in caliber. Cardiomegaly. Metallic foreign bodies/clips are noted in the proximal jejunum. Correlate clinically. -- Monitor volume status Continue p.o. vancomycin Monitor and replete electrolytes as needed Right knee osteoarthritis --R knee X ray:No fracture or dislocation within the right knee. Moderate knee effusion. Appreciate orthopedics input Plan for joint aspiration/injection Sinus tachycardia with PACs H/O paroxysmal A-fib Currently not on anticoagulation due to recurrent GI bleed Currently rate is controlled Continue metoprolol Monitor and replace electrolytes as needed Possible sepsis Likely sources: C. difficile colitis, possible left lower extremity cellulitis H./O recurrent cellulitis/strep bacteremia --Venous Doppler:There is no sonographic evidence of deep venous thrombosis identified in the right or left lower extremity. There is a 6.8 cm fluid collection along the anterior aspect of the right knee, likely representing a joint effusion. Correlate clinically. --Blood cultures pending Empirically on IV doxycycline Will limit antibiotic use as able given C. difficile infection Chronic diastolic heart failure H/O CAD S/P CABG Valvular heart disease --ECHO: EF 65 to 70%. Right ventricle normal in size and function. Moderate aortic regurgitation. Moderate mitral regurgitation. Mild tricuspid regurgitation. Monitor volume status Resume home diuretics as able DM II HbA1c 6.5 Diet controlled Utilize insulin per protocol while hospitalized Monitor BGs Hypertension Hyperlipidemia Continue metoprolol, Lipitor Parkinson's dementia Continue home meds CKD III Renal function at baseline Monitor Avoid nephrotoxic agents as able Chronic anemia No acute bleeding issues Monitor CBC DVT Px: SCDs RE recurrent GI bleed Code Status Full code Disposition PT OT prior to discharge Admission and Anticipated Discharge Date Admission Date: May 04, 2024 Subjective Patient is seen and examined at bedside Had 1 loose bowel movement per RN Complains of right knee pain States having generalized weakness Denies any chest pain, dyspnea, nausea, vomiting, abdominal pain No other complaints Review of Systems Review of Systems: All systems reviewed & are unremarkable except as noted in Subjective Physical Exam Physical Exam: Physical Exam: Vitals signs as noted above General Appearance:Moderately built and nourished, no apparent distress Head: normocephalic, Atraumatic Eyes: normal inspection, EOMI Neck: supple, Trachea midline Respiratory/Chest: Normal breath sounds, CTA, No accessory muscle use Cardiovascular: S1, S2, +murmur Abdomen/GI:Soft, Non tender, Bowel sounds present Extremities/Musculoskeletal:normal inspection, B/L LE edema, chronic venous stasis changes, R knee swelling Neurologic/Psych:AAOX2, grossly no focal neurological deficits Skin: normal color, warm Results & Data Results & Data Vital Signs (Past 12 Hours) Vital Signs Temp Pulse Resp BP Pulse Ox O2 Del Method O2 Flow Rate 05/05/24 11:08 36.4 C L 77 20 115/57 L 97 Room Air 05/05/24 08:00 Room Air 05/05/24 07:11 36.7 C 80 20 122/61 92 Room Air 05/05/24 05:00 36.8 C 78 18 119/58 L 98 Nasal Cannula 1 Laboratory Results Short CBC 05/04/24 05/05/24 Range/Units 17:00 06:38 WBC 10.46 8.60 (4.8-10.8) K/ul Hgb 9.5 L 8.1 L (14.0-18.0) g/dl Hct 29.0 L 25.1 L (42.0-52.0) % Plt Count 152 132 (130-400) K/uL BMP 05/04/24 05/05/24 17:00 06:38 Sodium 133 L 138 Potassium 4.3 3.7 Chloride 100 105 Carbon Dioxide 26 26 BUN 25 H 21 Creatinine 1.66 H 1.55 H Glucose 185 H 115 H Calcium 8.6 7.9 L Liver Function 05/04/24 Range/Units 17:00 Total Bilirubin 0.6 (0.2-1.0) mg/dl AST 25 (13-39) U/L ALT 21 (7-52) U/L Alkaline Phosphatase 129 H (34-104) U/L Albumin 3.3 L (3.4-5.0) gm/dl Urine 05/04/24 Range/Units 18:10 Urine Color Yellow Urine Appearance Clear (Clear) Urine pH 5.5 (4.5-7.5) Ur Specific [place] 1.017 (1.000-1.030) Urine Protein 1+ H (Negative) Urine Glucose (UA) Negative (Negative)
[2024-05-05] MEDS: DOXYCYCLINE HYCLATE 100 MG in DEXTROSE 5% MINI-B 100 ML IV SCH (15:22)
[2024-05-05] MEDS ORDERED: INSULIN ASPART PER UNIT CHARGE SC SCH (22:00)
[2024-05-06 07:20] LABS: Hematocrit (blood only) 27.7 % (42.0-52.0); Mean Corpuscular Hemoglobin 31.4 pg (25.0-34.0); Mean Corpuscular Hgb Conc 32.5 g/dL (32.0-36.0); Mean Corpuscular Volume 96.5 fL (80.0-100.0); Mean Platelet Volume 9.3 fL (9.4-12.4); Platelet Count 141 K/uL (130-400); RDW Coefficient of Variation 15.5 % (11.5-14.5); RDW Standard Deviation 55.2 fL (36.4-46.3); Red Blood Count 2.87 M/uL (4.70-6.10); White Blood Count 7.29 K/ul (4.8-10.8)
[2024-05-06 07:36] LABS: BUN Creatinine Ratio 14.4 (10-20); Calcium 8.6 mg/dl (8.6-10.3); Creatinine Clr Calc Pharmacy 30.1 ml/min; Est GFR (African American) 38.2 ml/min; Magnesium 2.1 mg/dl (1.7-2.4); Potassium 3.9 mmol/L (3.5-5.1)
--- NOTE | 2024-05-06 08:36 | Orthopedic Progress Note ---
Date of Service May 06, 2024 Assessment & Plan (1) Osteoarthritis of right knee: We did an aspiration and injection of the right knee at bedside. I aspirated about 40 cc of cloudy straw-colored fluid (which almost look like gout). I then injected the knee with 80 mg of Kenalog. This should help with his pain. I did send the fluid for synovial analysis and crystals. Will see what it shows. He tolerated the procedure well. He can be activity as tolerated with the right knee. Lynne Lee was seen and examined at bedside this morning. He still dealing with a lot of pain in the right knee. He has no new complaints.. Review of Systems All systems reviewed & are unremarkable except as noted in HPI & below. Physical Exam On physical examination of the right knee, he has a 2+ effusion. He has a lot of pain with range of motion. No signs of infection.. Results & Data Results & Data Laboratory Results . Diagnostic Findings . PG Care Time/CCT Total # of Minutes Spent Total Time Spent with Patient: Total time spent is greater than 50% in coordination of care (as documented) at patient's floor/unit and/or counseling patient: Coding Level of Care Code 40249 SUB INP/OBS CARE 2/35MIN Diagnoses Osteoarthritis of right knee M17.11
[2024-05-06] MEDS: BUPIVACAINE/EPINEPHRINE 0.25% 1:200,000 30 ML VIAL INFIL ONE (10:14)
[2024-05-06] MEDS: TRIAMCINOLONE ACET 40 MG/ML VIAL IA ONE (10:14)
[2024-05-06 13:34] LABS: Appearance Synovial Fluid Hazy; Color Synovial Fluid Yellow; RBC Synovial Fluid Auto 5000 /uL; Source Synovial Fluid Right Knee; WBC Synovial Fluid Auto 20580 /ul (0-200)
[2024-05-06] MEDS ORDERED: PHARMACY GLYCEMIC MGMT CONSULT PRN (14:05)
--- NOTE | 2024-05-06 14:33 | Pharmacy Report ---
Pharmacy Glycemic Short Note 2 - Date of Service May 06, 2024 - Glycemic Short BSG Results (Last 24 hours): 05/05/24 05/05/24 05/05/24 16:28 16:30 21:07 Glucose POC Glucose 598 H* 194 H 174 H 05/06/24 05/06/24 05/06/24 06:54 07:16 10:20 Glucose 137 H POC Glucose 169 H 352 H* 05/06/24 05/06/24 05/06/24 10:24 10:24 11:07 Glucose POC Glucose 289 H 255 H 249 H 05/06/24 13:54 Glucose POC Glucose 292 H OUTPATIENT ANTIDIABETIC REGIMEN: * Diet Controlled * A1c 6.5% 05/04/24 ASSESSMENT: * Patient with diet controlled type II diabetes, now with hyperglycemia following intra-articular triamcinolone injection yesterday * Fasting 169 mg/dL this morning- will initiate 10 units of lantus x 1 and reassess in AM * Type II diet ordered, elevated BSG with lunch- will initiate weight based carb ratio with dinner, continue same correction factor for now PLAN FOR INPATIENT GLYCEMIC CONTROL: * Hold outpatient oral diabetes medications * Basal insulin * Lantus 10 units SQ x1 * Bolus insulin * NovoLog per scale ACHS or Q6hrs while NPO * Goal Range: Low 110 mg/dL - High 140 mg/dL * Correction Factor: 25 mg/dL/unit * Nutritional / Prandial insulin per carb ratio of 1 unit per 12 grams CHO consumed
--- NOTE | 2024-05-06 17:25 | Hospitalist Progress Note ---
Date of Service May 06, 2024 Assessment & Plan (1) Atrial fibrillation with rapid ventricular response: Plan: C. difficile colitis --CT ABD:Findings are consistent a nonspecific pancolitis. Correlate clinically. The colon is normal in caliber. Cardiomegaly. Metallic foreign bodies/clips are noted in the proximal jejunum. Correlate clinically. -- Monitor volume status Continue p.o. vancomycin Monitor and replete electrolytes as needed Slowly improving Acute right knee gout--POA Right knee osteoarthritis --R knee X ray:No fracture or dislocation within the right knee. Moderate knee effusion. --S/P R knee aspiration and Triamcilone injection -- Synovial fluid showed uric acid crystals -- Synovial fluid culture pending Appreciate orthopedics input Will consider prednisone taper course if needed Sinus tachycardia with PACs H/O paroxysmal A-fib Currently not on anticoagulation due to recurrent GI bleed Currently rate is controlled Continue metoprolol Monitor and replace electrolytes as needed Possible sepsis Likely sources: C. difficile colitis, possible left lower extremity cellulitis H./O recurrent cellulitis/strep bacteremia --Venous Doppler:There is no sonographic evidence of deep venous thrombosis identified in the right or left lower extremity. There is a 6.8 cm fluid collection along the anterior aspect of the right knee, likely representing a joint effusion. Correlate clinically. --Blood cultures pending Empirically on IV doxycycline Will limit antibiotic use as able given C. difficile infection Chronic diastolic heart failure H/O CAD S/P CABG Valvular heart disease --ECHO: EF 65 to 70%. Right ventricle normal in size and function. Moderate aortic regurgitation. Moderate mitral regurgitation. Mild tricuspid regurgitation. Monitor volume status Resume home diuretics as able DM II HbA1c 6.5 Diet controlled Utilize insulin per protocol while hospitalized Monitor BGs Hypertension Hyperlipidemia Continue metoprolol, Lipitor Parkinson's dementia Continue home meds CKD III Renal function at baseline Monitor Avoid nephrotoxic agents as able Chronic anemia No acute bleeding issues Monitor CBC DVT Px: SCDs RE recurrent GI bleed Code Status Full code Disposition PT OT prior to discharge Admission and Anticipated Discharge Date Admission Date: May 04, 2024 Subjective Patient is seen and examined at bedside Complains of right knee pain after aspiration of the joint today Had 1 loose bowel movement this afternoon Had PT evaluation earlier today Patient offers no other complaints Denies any chest pain, dyspnea, nausea, vomiting, abdominal pain Review of Systems Review of Systems: All systems reviewed & are unremarkable except as noted in Subjective Physical Exam Physical Exam: Physical Exam: Vitals signs as noted above General Appearance:Moderately built and nourished, no apparent distress Head: normocephalic, Atraumatic Eyes: normal inspection, EOMI Neck: supple, Trachea midline Respiratory/Chest: Normal breath sounds, CTA, No accessory muscle use Cardiovascular: S1, S2, +murmur Abdomen/GI:Soft, Non tender, Bowel sounds present Extremities/Musculoskeletal:normal inspection, B/L LE edema, chronic venous stasis changes, R knee swelling Neurologic/Psych:AAOX2, grossly no focal neurological deficits Skin: normal color, warm Results & Data Results & Data Vital Signs (Past 12 Hours) Vital Signs Temp Pulse Pulse Resp BP Pulse Ox O2 Del Method 05/06/24 16:15 36.5 C 81 22 125/68 100 Room Air 05/06/24 13:00 80 05/06/24 11:03 73 05/06/24 10:45 36.3 C L 112 H 20 132/73 91 Room Air 05/06/24 08:00 Room Air 05/06/24 07:23 36.5 C 86 21 142/76 H 96 Room Air Laboratory Results Short CBC 05/06/24 Range/Units 06:54 WBC 7.29 (4.8-10.8) K/ul Hgb 9.0 L (14.0-18.0) g/dl Hct 27.7 L (42.0-52.0) % Plt Count 141 (130-400) K/uL BMP 05/06/24 06:54 Sodium 136 Potassium 3.9 Chloride 104 Carbon Dioxide 25 BUN 27 H Creatinine 1.88 H D Glucose 137 H Calcium 8.6
[2024-05-06] MEDS: LANTUS PER UNIT CHARGE SC SCH (17:35)
[2024-05-07] MEDS: INSULIN ASPART PER UNIT CHARGE SC SCH (02:11)
[2024-05-07 06:34] LABS: BUN Creatinine Ratio 20.3 (10-20); Calcium 8.9 mg/dl (8.6-10.3); Creatinine Clr Calc Pharmacy 28.6 ml/min; Est GFR (African American) 36.1 ml/min; Est GFR (Non-African American) 31.2 ml/min; Potassium 4.4 mmol/L (3.5-5.1)
[2024-05-07] MEDS: LANTUS PER UNIT CHARGE SC ONE (09:21)
[2024-05-07] MEDS: DOXYCYCLINE HYCLATE 100 MG CAP PO SCH (11:52)
--- NOTE | 2024-05-07 12:13 | Pharmacy Report ---
Pharmacy Glycemic Short Note 2 - Date of Service May 07, 2024 - Glycemic Short BSG Results (Last 24 hours): 05/06/24 05/06/24 05/06/24 13:54 16:17 20:26 Glucose POC Glucose 292 H 217 H 253 H 05/07/24 05/07/24 05/07/24 02:01 05:51 07:26 Glucose 163 H POC Glucose 236 H 184 H 05/07/24 11:29 Glucose POC Glucose 268 H OUTPATIENT ANTIDIABETIC REGIMEN: * Diet Controlled * A1c 6.5% 05/04/24 ASSESSMENT: 05/07 * BSGs elevated the last 24h: [id number]/dL. Received 10 units of basal and 25 units of bolus insulin yesterday. * Tolerating diet, SCr increasing. Other stressors stable. * Increase basal (~30%) this AM d/t elevated fasting. Novolog tightened for improved prandial coverage. 05/06: * Patient with diet controlled type II diabetes, now with hyperglycemia fol lowing intra-articular triamcinolone injection yesterday * Fasting 169 mg/dL this morning- will initiate 10 units of lantus x 1 and reassess in AM * Type II diet ordered, elevated BSG with lunch- will initiate weight based carb ratio with dinner, continue same correction factor for now PLAN FOR INPATIENT GLYCEMIC CONTROL: * Hold outpatient oral diabetes medications * Basal insulin * Lantus 13 units SQ x1 * Bolus insulin * NovoLog per scale ACHS or Q6hrs while NPO * Goal Range: Low 110 mg/dL - High 140 mg/dL * Correction Factor: 20 mg/dL/unit * Nutritional / Prandial insulin per carb ratio of 1 unit per 9 grams CHO consumed
--- NOTE | 2024-05-07 12:58 | Hospitalist Progress Note ---
Date of Service May 07, 2024 Assessment & Plan (1) Atrial fibrillation with rapid ventricular response: Plan: C. difficile colitis --CT ABD:Findings are consistent a nonspecific pancolitis. Correlate clinically. The colon is normal in caliber. Cardiomegaly. Metallic foreign bodies/clips are noted in the proximal jejunum. Correlate clinically. -- Monitor volume status Continue p.o. vancomycin Monitor and replete electrolytes as needed Slowly improving Acute right knee gout--POA Right knee osteoarthritis --R knee X ray:No fracture or dislocation within the right knee. Moderate knee effusion. --S/P R knee aspiration and Triamcinolone injection -- Synovial fluid showed uric acid crystals -- Synovial fluid culture : No growth to date Appreciate orthopedics input Sinus tachycardia with PACs H/O paroxysmal A-fib Currently not on anticoagulation due to recurrent GI bleed Currently rate is controlled Continue metoprolol Monitor and replace electrolytes as needed Possible sepsis Likely sources: C. difficile colitis, possible left lower extremity cellulitis H./O recurrent cellulitis/strep bacteremia --Venous Doppler:There is no sonographic evidence of deep venous thrombosis identified in the right or left lower extremity. There is a 6.8 cm fluid collection along the anterior aspect of the right knee, likely representing a joint effusion. Correlate clinically. --Blood cultures: Negative to date Empirically on doxycycline Will limit antibiotic use as able given C. difficile infection Chronic diastolic heart failure H/O CAD S/P CABG Valvular heart disease --ECHO: EF 65 to 70%. Right ventricle normal in size and function. Moderate aortic regurgitation. Moderate mitral regurgitation. Mild tricuspid regurgitation. Monitor volume status Resume home diuretics as able DM II HbA1c 6.5 Diet controlled Utilize insulin per protocol while hospitalized Monitor BGs Hypertension Hyperlipidemia Continue metoprolol, Lipitor Parkinson's dementia Continue home meds CKD III Renal function at baseline Monitor Avoid nephrotoxic agents as able Chronic anemia No acute bleeding issues Monitor CBC DVT Px: SCDs RE recurrent GI bleed Code Status Full code Disposition Home with home health Admission and Anticipated Discharge Date Admission Date: May 04, 2024 Subjective Patient is seen and examined at bedside Patient is doing a lot better today Right knee pain is much improved Had 1 loose BM today Updated patient's family over the phone Eager to get discharged Denies any chest pain, dyspnea, nausea, vomiting, abdominal pain Review of Systems Review of Systems: All systems reviewed & are unremarkable except as noted in Subjective Physical Exam Physical Exam: Physical Exam: Vitals signs as noted above General Appearance:Moderately built and nourished, no apparent distress Head: normocephalic, Atraumatic Eyes: normal inspection, EOMI Neck: supple, Trachea midline Respiratory/Chest: Normal breath sounds, CTA, No accessory muscle use Cardiovascular: S1, S2, +murmur Abdomen/GI:Soft, Non tender, Bowel sounds present Extremities/Musculoskeletal:normal inspection, B/L LE edema, chronic venous stasis changes, R knee swelling Neurologic/Psych:AAOX2, grossly no focal neurological deficits Skin: normal color, warm Results & Data Results & Data Vital Signs (Past 12 Hours) Vital Signs Temp Pulse Pulse Resp BP Pulse Ox O2 Del Method 05/07/24 11:34 36.6 C 79 18 135/70 100 Room Air 05/07/24 08:00 Room Air 05/07/24 08:00 36.6 C 58 L 18 137/61 97 Room Air 05/07/24 07:00 69 05/07/24 03:50 36.5 C 64 18 140/65 96 Room Air Laboratory Results [facility] 05/07/24 05:51 Sodium 137 Potassium 4.4 Chloride 106 Carbon Dioxide 24 BUN 40 H Creatinine 1.97 H Glucose 163 H Calcium 8.9
--- NOTE | 2024-05-07 13:09 | Discharge Summary ---
Date of Service May 07, 2024 Admission HPI Per Admitting Provider History obtained from patient, family, and records. Limited history from patient secondary to hearing impairment and dementia. Medical history significant for chronic diastolic heart failure (EF 60 to 65%, TTE 2021), CAD status post CABG, valvular heart disease (mild MR/AR, mitral valve prolapse as per records), PAF not on anticoagulation secondary to recurrent GI bleed, wandering atrial pacemaker as per records, hypertension, hyperlipidemia, Parkinson's dementia, GERD, CRI (baseline creatinine 1.5-2), medullary sponge kidney as per records, BPH, chronic anemia (recent hemoglobin of 10-11), history recurrent cellulitis/strep bacteremia as per records, recent C. difficile ongoing vancomycin Rx. Last confinement February 2024 for acute on chronic anemia secondary to GI bleed. Normal small bowel enteroscopy. Outpatient endoscopy done last month. Ileal angioectasias noted sp APC treatment and clipping. Watery diarrhea the last few weeks with mild abdominal cramping. Poor appetite. Outpatient stool C. difficile noted to be positive. Patient prescribed oral vancomycin course by GI provider yesterday. Patient noted to have increasing weakness. Bilateral leg swelling right greater than the left. Left leg noted to be red and seeping. Temperature of 101 at home. Patient denies unusual chest pain or SOB or cough symptoms. Patient noted to be in rapid A-fib upon arrival at the ER. 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, lives with Admission Exam Per Admitting Provider GENERAL: Demented, obese, slightly hard of hearing, no respiratory distress SKIN: Pallor, warm HEENT: Pale palpebral conjunctivae, chronic ptosis right, dry buccal mucosa NECK : Supple, short neck, no tenderness CHEST : CTA, no tenderness HEART : Irregular, systolic murmur ABDOMEN: Some distention, nontender EXTREMITIES : RLE swelling, LLE erythema with minimal LE tenderness, no other conspicuous deformities noted NEUROLOGIC : Coherent, chronic ptosis right, mild hearing impairment, no facial asymmetry, gait and stance not assessed Principal Diagnosis C. difficile colitis Acute right knee gout Leg cellulitis Discharge Data Allergies Allergy/AdvReac Type Severity Reaction Status Date / Time NSAIDS (Non-Steroidal Allergy Intermediate Rash Verified 05/04/24 18:06 Anti-Inflamma YONATAN Inhibitors AdvReac Intermediate Cough Verified 05/04/24 18:06 carbidopa AdvReac Intermediate constipatio Verified 05/04/24 18:06 n levodopa AdvReac Intermediate constipatio Verified 05/04/24 18:06 n Consultations 05/04/24 20:04 ED Decision to Admit Stat 05/05/24 03:23 Consult Orthopedic Surgery Routine Procedures Performed Laboratory Results WBC 7.29 K/ul (4.8-10.8) 05/06/24 06:54 RBC 2.87 M/uL (4.70-6.10) L 05/06/24 06:54 Hgb 9.0 g/dl (14.0-18.0) L 05/06/24 06:54 Hct 27.7 % (42.0-52.0) L 05/06/24 06:54 MCV 96.5 fL (80.0-100.0) 05/06/24 06:54 MCH 31.4 pg (25.0-34.0) 05/06/24 06:54 MCHC 32.5 g/dL (32.0-36.0) 05/06/24 06:54 RDW Std Deviation 55.2 fL (36.4-46.3) H 05/06/24 06:54 RDW Coeff of Anny 15.5 % (11.5-14.5) H 05/06/24 06:54 Plt Count 141 K/uL (130-400) 05/06/24 06:54 MPV 9.3 fL (9.4-12.4) L 05/06/24 06:54 Immature Gran % (Auto) 1.0 % 05/05/24 06:38 Neut % (Auto) 85.6 % 05/05/24 06:38 Lymph % (Auto) 5.9 % 05/05/24 06:38 Cocke % (Auto) 7.2 % 05/05/24 06:38 Eos % (Auto) 0.1 % 05/05/24 06:38 Baso % (Auto) 0.2 % 05/05/24 06:38 Neut # (Auto) 7.35 K/uL (1.40-6.50) H 05/05/24 06:38 Lymph # (Auto) 0.51 K/uL (1.20-3.40) L 05/05/24 06:38 Cocke # (Auto) 0.62 K/uL (0.11-0.59) H 05/05/24 06:38 Eos # (Auto) 0.01 K/uL (0.00-0.50) 05/05/24 06:38 Baso # (Auto) 0.02 K/uL (0.00-0.20) 05/05/24 06:38 Immature Gran # (Auto) 0.09 K/uL (0.01-0.20) 05/05/24 06:38 PT 11.4 Seconds (9.0-12.0) 05/04/24 17:00 INR 1.1 (0.9-1.1) 05/04/24 17:00 Sodium 137 mmol/L (136-145) 05/07/24 05:51 Potassium 4.4 mmol/L (3.5-5.1) 05/07/24 05:51 Chloride 106 mmol/L (98-107) 05/07/24 05:51 Carbon Dioxide 24 mmol/L (21-32) 05/07/24 05:51 Anion Gap 7 (3-11) 05/07/24 05:51 BUN 40 mg/dl (6-23) H 05/07/24 05:51 Creatinine 1.97 mg/dl (0.6-1.4) H 05/07/24 05:51 Est Cr Clr Drug Dosing 28.6 ml/min 05/07/24 05:51 Est GFR ( Amer) 36.1 ml/min 05/07/24 05:51 Est GFR (Non-Af Amer) 31.2 ml/min 05/07/24 05:51 BUN/Creatinine Ratio 20.3 (10-20) H 05/07/24 05:51 Glucose 163 mg/dl (70-99(Fasting)) H 05/07/24 05:51 POC Glucose 268 mg/dl (70-99) H 05/07/24 11:29 Estimat Average Glucose 140 mg/dl 05/04/24 17:00 Hemoglobin A1c 6.5 % (4.5-5.6) H 05/04/24 17:00 Lactate 1.5 mmol/L (0.4-2.0) 05/04/24 17:00 Calcium 8.9 mg/dl (8.6-10.3) 05/07/24 05:51 Magnesium 2.1 mg/dl (1.7-2.4) 05/06/24 06:54 Total Bilirubin 0.6 mg/dl (0.2-1.0) 05/04/24 17:00 AST 25 U/L (13-39) 05/04/24 17:00 ALT 21 U/L (7-52) 05/04/24 17:00 Alkaline Phosphatase 129 U/L (34-104) H 05/04/24 17:00 Troponin I High Sens 11.0 pg/ml (0-20) 05/04/24 17:00 B-Natriuretic Peptide 344 pg/ml (0-100) H 05/04/24 17:00 Total Protein 5.7 gm/dl (6.0-8.3) L 05/04/24 17:00 Albumin 3.3 gm/dl (3.4-5.0) L 05/04/24 17:00 Globulin 2.4 gm/dl (2.5-4.0) L 05/04/24 17:00 Albumin/Globulin Ratio 1.4 (0.9-2) 05/04/24 17:00 Procalcitonin 0.40 ng/ml (0-0.5) 05/04/24 17:00 TSH 2.361 uIu/ml (0.300-4.500) 05/04/24 17:00 Urine Color Yellow 05/04/24 18:10 Urine Appearance Clear (Clear) 05/04/24 18:10 Urine pH 5.5 (4.5-7.5) 05/04/24 18:10 Ur Specific [place] 1.017 (1.000-1.030) 05/04/24 18:10 Urine Protein 1+ (Negative) H 05/04/24 18:10 Urine Glucose (UA) Negative (Negative) 05/04/24 18:10 Urine Ketones Negative (Negative) 05/04/24 18:10 Urine Blood Negative (Negative) 05/04/24 18:10 Urine Nitrite Negative (Negative) 05/04/24 18:10 Urine Bilirubin Negative (Negative) 05/04/24 18:10 Urine Urobilinogen Negative (Negative) 05/04/24 18:10 Ur Leukocyte Esterase Negative (Negative) 05/04/24 18:10 Urine WBC (Auto) 0-5 /hpf (0-5) 05/04/24 18:10 Urine RBC (Auto) 0-2 /hpf (0-2) 05/04/24 18:10 U Hyaline Cast (Auto) 3-5 /lpf (0-2) H 05/04/24 18:10 U Epithel Cells (Auto) 0-2 /hpf (0-2) 05/04/24 18:10 Urine Bacteria (Auto) None Seen (None Seen) 05/04/24 18:10 Fluid Comment 05/06/24 Unknown Synovial Source Right Knee 05/06/24 Unknown Synovial Color Yellow 05/06/24 Unknown Synovial Appearance Hazy 05/06/24 Unknown Synovial WBC (Auto) 81109 /ul (0-200) H 05/06/24 Unknown Synovial RBC (Auto) 5000 /uL 05/06/24 Unknown Synovial Polynuclear % 97.0 % 05/06/24 Unknown Synovial Mononuclear % 3.0 % 05/06/24 Unknown Synovial Crystals 05/06/24 Unknown Adenovirus (PCR) Not Detected (NotDetected) 05/04/24 17:00 B. pertussis DNA (PCR) Not Detected (NotDetected) 05/04/24 17:00 B.parapertussis DNA PCR Not Detected (NotDetected) 05/04/24 17:00 C. pneumoniae DNA (PCR) Not Detected (NotDetected) 05/04/24 17:00 Coronavirus OC43 (PCR) Not Detected (NotDetected) 05/04/24 17:00 Coronavirus HKU1 (PCR) Not Detected (NotDetected) 05/04/24 17:00 Coronavirus 229E (PCR) Not Detected (NotDetected) 05/04/24 17:00 SARS-CoV-2 (PCR) Not Detected (NotDetected) 05/04/24 17:00 Coronavirus NL63 (PCR) Not Detected (NotDetected) 05/04/24 17:00 Human Metapneumovir PCR Not Detected (NotDetected) 05/04/24 17:00 Influenza Type A (PCR) Not Detected (NotDetected) 05/04/24 17:00 Influenza Type B (PCR) Not Detected (NotDetected) 05/04/24 17:00 M. pneumoniae (PCR) Not Detected (NotDetected) 05/04/24 17:00 Parainfluenza 1 (PCR) Not Detected (NotDetected) 05/04/24 17:00 Parainfluenza 2 (PCR) Not Detected (NotDetected) 05/04/24 17:00 Parainfluenza 3 (PCR) Not Detected (NotDetected) 05/04/24 17:00 Parainfluenza 4 (PCR) Not Detected (NotDetected) 05/04/24 17:00 RSV (PCR) Not Detected (NotDetected) 05/04/24 17:00 Entero/Rhino (PCR) Not Detected (NotDetected) 05/04/24 17:00 Impressions Chest X-Ray 05/04/24 16:47 SINGLE VIEW CHEST CLINICAL HISTORY: Generalized weakness FINDINGS: An AP, portable, upright chest radiograph is compared to study dated 02/29/2024. The patient is status post midline sternotomy. The heart is enlarged noting atherosclerotic calcification of the thoracic aorta. The pulmonary vasculature is noncongested. Chronic interstitial thickening is similar to previous. There is bibasilar scarring/atelectasis. No airspace consolidation or large pleural effusion is identified. No pneumothorax is seen. The skeletal structures are osteopenic. There are chronic/healed left-sided rib fractures. Arthritic change is seen in the shoulders. IMPRESSION: Cardiomegaly with no active disease in the chest. ACT 112: Negative or not required by law. Electronically signed by: Gonzales Alvarado M.D. 05/04/2024 5:19 PM Abdomen/Pelvis CT 05/04/24 18:08 CT SCAN OF THE ABDOMEN AND PELVIS WITH IV CONTRAST CLINICAL HISTORY: Generalized weakness. C. difficile infection. COMPARISON STUDY: Abdominal CT dated 10/06/2023. TECHNIQUE: Following the IV administration of 91 cc of Optiray 320, CT scan of the abdomen and pelvis is performed from the lung bases to the proximal femora. Images are reviewed in the axial, sagittal, and coronal planes. IV contrast was administered without complication. A dose lowering technique was utilized adhering to the principles of ALARA. The examination is degraded by motion artifact. CT DOSE: 2451.31 mGy.cm FINDINGS: Lung bases: The patient is status post midline sternotomy. The heart is enlarged and without pericardial effusion. The coronary arteries are densely calcified. There is a tiny hiatal hernia. The lung bases are clear noting bibasilar scarring/atelectasis. Liver: The contrast-enhanced liver is normal in size, contour, and attenuation. There is no intrahepatic biliary ductal dilatation. The hepatic veins and portal veins are patent. Gallbladder: Unremarkable. Spleen: Normal in size and attenuation. 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 The pancreas is mildly atrophic and otherwise grossly unremarkable. Adrenal glands: Unremarkable. Kidneys: The contrast enhanced kidneys demonstrate mild cortical atrophy and are without hydronephrosis. The kidneys enhance symmetrically. Abdominal vasculature: The abdominal aorta is normal in course and caliber noting moderate atherosclerotic calcification. Bowel: There is no bowel obstruction. The colon is normal in caliber. There is mild wall thickening throughout the colon with pericolonic infiltration. This is greatest involving the proximal descending colon, is consistent with a nonspecific pancolitis. There is mild colonic diverticulosis without CT evidence of acute diverticulitis. Metallic foreign bodies/clips are present within the proximal jejunum as seen on image #[id number]. A duodenal diverticulum is incidentally noted. The appendix is well-visualized and normal. Peritoneum: There is no intraperitoneal free air or abdominal ascites. Lymphadenopathy: None. Pelvic viscera: Evaluation of the pelvis is degraded by streak artifact from a right hip arthroplasty. The prostate gland is enlarged and heterogeneous. The bladder wall is thickened/trabeculated indicating chronic outlet obstruction. There is a fat containing right groin hernia. Skeletal structures: The skeletal structures are osteopenic. There is advanced lumbosacral spondylosis. There are bilateral pars defects at L5. Degenerative change and partial fusion is seen in the sacroiliac joints. Arthritic change is noted in the left hip. No lytic or blastic lesions are seen. A right hip arthroplasty is in place. IMPRESSION: 1. Findings are consistent a nonspecific pancolitis. Correlate clinically. 2. The colon is normal in caliber. 3. Cardiomegaly. 4. Metallic foreign bodies/clips are noted in the proximal jejunum. Correlate clinically. 5. Additional findings as above. ACT 112: Negative or not required by law. Electronically signed by: Gonzales Alvarado M.D. 05/04/2024 6:[address] 05/04/24 18:08 CT SCAN OF THE BRAIN WITHOUT IV CONTRAST CLINICAL HISTORY: Generalized weakness. COMPARISON STUDY: CT of the brain dated 07/01/2021. TECHNIQUE: Unenhanced axial CT scan of the brain is performed from the vertex to the skull base. A dose lowering technique was utilized adhering to the principles of ALARA. FINDINGS: Brain parenchyma: There is age-related involutional change noting moderate subcortical and periventricular microangiopathic disease. There is no hemorrhage, mass effect, or evidence of acute territorial ischemia by CT criteria. Mineralization is noted in the basal ganglia. Jain-white matter differentiation is preserved. No extra-axial fluid collection is seen. Ventricles, sulci, cisterns: Prominent secondary to involutional change. Intracranial vasculature: There is atherosclerotic calcification of the cavernous carotid and vertebral arteries. Calvarium: Unremarkable. Sinuses and mastoids: The visualized paranasal sinuses are clear. There are left larger than right massive effusions. Orbits: The bony orbits are grossly intact. There are bilateral ocular lens implants. IMPRESSION: There is no hemorrhage, mass effect, or evidence of acute territo rial ischemia by CT criteria. ACT 112: Negative or not required by law. Electronically signed by: Gonzales Alvarado M.D. 05/04/2024 6:38 PM Venous Doppler Study 05/04/24 21:01 ULTRASOUND BILATERAL LOWER EXTREMITY VENOUS CLINICAL HISTORY: Lower extremity edema. COMPARISON STUDY: Bilateral lower extremity venous ultrasound dated 01/25/2023 TECHNIQUE: Real-time, grayscale, and color Doppler sonography of the deep veins of the right and left lower extremity was performed from the inguinal crease to the calf. Compression and augmentation were utilized. FINDINGS: There is no sonographic evidence of deep venous thrombosis identified in the right or left lower extremity. The common femoral, superficial femoral, and popliteal veins are patent and normally compressible bilaterally. The greater saphenous vein and the profunda femoris vein at the junction with the common femoral vein are clear in both legs. The visualized calf veins are patent bilaterally. Soft tissue edema is present in both legs. There is a 6.1 x 1.3 x 6.8 cm fluid collection along the anterior aspect of the right knee, likely representing a joint effusion. IMPRESSION: 1. There is no sonographic evidence of deep venous thrombosis identified in the right or left lower extremity. 2. There is a 6.8 cm fluid collection along the anterior aspect of the right knee, likely representing a joint effusion. Correlate clinically. ACT 112: Negative or not required by law. Electronically signed by: Gonzales Avlarado M.D. 05/04/2024 11:12 PM Knee X-Ray 05/05/24 07:00 RIGHT KNEE 3 VIEWS HISTORY: Right knee swelling COMPARISON: None. FINDINGS: There is no fracture or dislocation. There is a moderate right knee effusion. No significant soft tissue swelling. Moderate osteoarthritis the medial compartment of the knee. No radiopaque foreign bodies. IMPRESSION: 1. No fracture or dislocation within the right knee. 2. Moderate knee effusion. ACT 112: Negative or not required by law. Electronically signed by: José Miguel Rock M.D. 05/05/2024 8:41 AM Ordered Studies 05/04/24 18:08 CT Abd and Pelvis [CT abd pelvis IV con only] Stat CT head/brain wo con Stat 05/04/24 21:01 US venous doppler LE BI Stat Hospital Course (1) Atrial fibrillation with rapid ventricular response: C. difficile colitis --CT ABD:Findings are consistent a nonspecific pancolitis. Correlate clinically. The colon is normal in caliber. Cardiomegaly. Metallic foreign bodies/clips are noted in the proximal jejunum. Correlate clinically. -- Monitor volume status Continue p.o. vancomycin Monitor and replete electrolytes as needed Slowly improving Acute right knee gout--POA Right knee osteoarthritis --R knee X ray:No fracture or dislocation within the right knee. Moderate knee effusion. --S/P R knee aspiration and Triamcinolone injection -- Synovial fluid showed uric acid crystals -- Synovial fluid culture : No growth to date Appreciate orthopedics input Sinus tachycardia with PACs H/O paroxysmal A-fib Currently not on anticoagulation due to recurrent GI bleed Currently rate is controlled Continue metoprolol Monitor and replace electrolytes as needed Possible sepsis Likely sources: C. difficile colitis, possible left lower extremity cellulitis H./O recurrent cellulitis/strep bacteremia --Venous Doppler:There is no sonographic evidence of deep venous thrombosis identified in the right or left lower extremity. There is a 6.8 cm fluid collection along the anterior aspect of the right knee, likely representing a joint effusion. Correlate clinically. --Blood cultures: Negative to date Empirically on doxycycline Will limit antibiotic use as able given C. difficile infection Chronic diastolic heart failure H/O CAD S/P CABG Valvular heart disease --ECHO: EF 65 to 70%. Right ventricle normal in size and function. Moderate aortic regurgitation. Moderate mitral regurgitation. Mild tricuspid regurgitation. Monitor volume status Resume home diuretics as able DM II HbA1c 6.5 Diet controlled Utilize insulin per protocol while hospitalized Monitor BGs Hypertension Hyperlipidemia Continue metoprolol, Lipitor Parkinson's dementia Continue home meds CKD III Renal function at baseline Monitor Avoid nephrotoxic agents as able Chronic anemia No acute bleeding issues Monitor CBC DVT Px: SCDs RE recurrent GI bleed Code Status Full code Disposition Home with home health Total Time Total Time Spent Total Time Spent (In Minutes): 55 minutes Discharge Plan Discharge Items Patient Disposition: Home - Home Health Services Reason For Visit: RAPID AF Discharge Diagnosis: C. difficile colitis Acute right knee gout Leg cellulitis Activity: Per Instructions section Exercise/Sports: Gradually increase as tolerated Non-emergency contact: Primary Care Provider Call non-emergency contact if: you have any medication questions, your symptoms worsen, your pain is concerning for you and you have a fever Follow-up/Referrals: Michael Hinton MD [Primary Care Provider] - (Date & Time 05/13/2024 3:20 PM Provider Michael Hinton MD Department [facility] ) Diet: Carb Consistent or DM2 and Heart Healthy Addtl Attending Provider Instructions: Follow-up with your primary care physician on 05/13/2024 3:20 PM -- Complete the antibiotic doxycycline, oral vancomycin course as prescribed -- Discuss with your physician for further management of gout as advised. --Get blood work (basic metabolic panel) in 1 week to monitor renal function and electrolytes. Follow-up with your physician with results for further management. -- Your metoprolol dose is increased to 25 mg twice a day due to better control of your heart rate. Seek immediate medical attention if your symptoms reoccur or worsen Please take all medications as instructed on discharge list below. Please call if you have any questions or problems. You can reach a [facility] hospitalist on duty at [facility] 24 hours a day by calling [phone] Pending Studies at Discharge: Yes Studies:: Blood, synovial fluid cultures Stand-Alone Forms: My [facility], Smoking Cessation Medications and DC Order Prescriptions: New doxycycline hyclate 100 mg Capsule 100 mg PO BID Qty: 9 0RF prednisone 20 mg tablet 20 mg PO DAILY 3 Days Qty: 3 0RF Continued escitalopram oxalate 20 mg tablet 20 mg PO QAM Qty: 90 3RF amantadine HCl 100 mg capsule 100 mg PO QAM dutasteride 0.5 mg Capsule 0.5 mg PO QAM donepezil 10 mg tablet 10 mg PO QAM atorvastatin 40 mg Tablet 40 mg PO QAM betamethasone dipropionate 0.05 % ointment 1 applic TOPICAL BID Rx Instructions: apply to skin lesions and scalp lesions up to two times a day for no longer than two weeks at a time for itch, then, take a two week break. pantoprazole 40 mg tablet,delayed release (DR/EC) 40 mg PO QAM cholecalciferol (vitamin D3) 25 mcg (1,000 unit) Capsule 25 mcg PO QAM acetaminophen 500 mg Tablet 1,000 mg PO Q8H PRN (Reason: Pain) levalbuterol tartrate 45 mcg/actuation HFA aerosol inhaler 1 puff INHALATION Q6H PRN (Reason: Wheezing) vitamin B complex Capsule 1 cap PO DAILY vancomycin 125 mg capsule 125 mg PO QID Rx Instructions: 10 days (05/03-05/12) Probiotic 3 billion cell Capsule 3,000 mmu cells PO QAM Qty: 30 0RF Rx Instructions: administer with a meal Changed metoprolol succinate 25 mg tablet extended release 24 hr 25 mg PO BID Qty: 60 3RF Held torsemide 20 mg tablet 20 mg PO QAM MDD 40mg Hold Instructions: Hold until your diarrhea resolves/follow up with PCP for instructions Rx Instructions: Take 20mg by mouth in the morning, May take additional 20mg later in the day as needed for weight gain Discharge Orders: Discharge Order (Routine); Ordered 05/07/24 Ordered By: Seven Amador Admission Data Admit Date/Time: 05/04/24 21:05 Attending Provider: Seven Amador Admit Provider: Eduardo Echeverria Primary Care Provider: Michael Hinton Other Providers: Eduardo Echeverria; Kirk [place]; [facility]
--- NOTE | 2024-05-16 07:24 | Coding Query ---
CODING QUERY To promote full compliance with coding requirements relating to patient care, provider participation is requested in all cases of sheet rock sander uncertainty. Please assist us with the question(s) below: Clinical Indicators: ED Note: * Vitals signs showed hypertension and tachycardia. * Diagnosis: generalized weakness; elevated BNP; Afib with RVR H&P: * Patient noted to be in rapid A-fib upon arrival at the ER. * Vitals: Temp - 37.5; Pulse - 93; Resp - 18; BP - 148/83; Pulse Ox - 98 * WBC - 10.46 Normal; Lactate - 1.5 Normal; Procalcitonin - 0.40 Normal Discharge Summary: * Possible sepsis * Likely sources: C. difficile colitis, possible left lower extremity cellulitis * Blood cultures: Negative to date * Empirically on doxycycline * Discharge Diagnosis: C. difficile colitis; Acute right knee gout; Leg cellulitis Coding Question(s): Was possible sepsis still considered a diagnosis at discharge? If so, could you please provide the clinical findings that support the diagnosis of possible sepsis? Physician's Response(s): No Sepsis as doesnt meet SIRS criteria Thank you Dominique Winkler Principal Diagnosis: "that condition established after study, to be chiefly responsible for occasioning the admission of the patient to the hospital for care." Co-Existing Principal Diagnosis: "when two or more diagnoses equally meet the criteria for principal diagnosis as determined by the circumstances of admission, diagnostic work up, and/or therapy provided, and the Alphabetic Index, Tabular List, or another coding guideline does not provide sequencing direction, any one of the diagnoses may be sequenced first." "When the physician has documented what appears to be a current diagnosis in the body of the record, but has not included the diagnosis in the final diagnostic statement, the physician should be asked whether the diagnosis should be added." (Source Coding Clinic 2 QTR90. p3-4) JEANMARIE
== END 2024-05-07 14:16 | disposition home health service (06) | DRG 603 ==
LOC: ED 16:39 → 2E 21:05

== ENCOUNTER 2024-07-25 12:39 | Inpatient (IN) ==
--- NOTE | 2024-07-25 13:25 | Emergency Department Note ---
Impression & Plan CHF (congestive heart failure), Anemia, Acute lower GI bleeding ED Provider Note NAME: CHE BURCH AGE: 79 SEX: M : 1945 ARRIVES VIA: Ambulance INFORMANT: Patient, EMS ED PROVIDER(S): Tonio Wild DO CHIEF COMPLAINT: Rectal bleeding HPI: The patient is an 79-year-old male who presented to the emergency department for an evaluation of rectal bleeding. The patient has home health. They visited him today and noticed that he was having swelling in his hands and feet. He also had rectal bleeding. He was recently diagnosed with C. difficile colitis. The patient denies having any chest pain or difficulty breathing. He denies having any nausea or vomiting. The patient is unsure why he is in the emergency department at this time. He did not see his family doctor for the symptoms. ROS: See above HPI for pertinent positives & negatives. A total of 10 systems reviewed and were otherwise negative. PAST MEDICAL HISTORY: See Below PAST SURGICAL HISTORY: See Below FAMILY HISTORY: See Below SOCIAL HISTORY: See Below HOME MEDICATIONS: See Below ALLERGIES: See Below VITALS: See Below PHYSICAL EXAMINATION: GENERAL: Patient is awake alert in no acute distress patient is resting comfortably and showing no signs of anxiety EYES: The conjunctivae are clear. The pupils are round and reactive. EARS, NOSE, MOUTH AND THROAT: The nose is without any evidence of any deformity. NECK: The neck is nontender and supple. RESPIRATORY: The breath sounds are noted throughout. Scattered rhonchi were noted. CARDIOVASCULAR: Tachycardic and irregular heart sounds were noted to auscultation. Systolic murmur was suggested by auscultation. GASTROINTESTINAL: Abdomen is soft and nondistended. There is no tenderness guarding or rigidity. Rectal exam revealed gross blood. MUSCULOSKELETAL/EXTREMITIES: There is no evidence of gross deformity full range of motion is noted in the hips and shoulders. SKIN: Chronic venous stasis changes were noted in both feet. NEUROLOGIC: Patient is awake alert and oriented to person place and situation. Strength is symmetric but diminished. MEDICAL DECISION MAKING: The patient is an 79-year-old male who presented to the emergency department for rectal bleeding. The patient did not have an obvious external source on my physical exam. The patient did have blood per rectum. He is currently being treated for C. difficile colitis. The patient was treated with his oral vancomycin in the emergency department. His abdominal exam was not consistent with an acute surgical abdomen. I discussed the patient's laboratory and radiographic studies with him and his significant other. He was retaining fluid. There is concern that the patient may be worsening in his symptoms and this is why home health sent him to the emergency department. For this reason I discussed his condition with the on-call [facility] hospitalist. They have agreed to evaluate the patient in the emergency department for further management and disposition. Triage Nursing notes reviewed. Prior medical records reviewed Vital Signs: reviewed and remarkable for bit of blood pressure. Differential diagnosis: Diverticulosis, AVM, coagulopathy, colitis, inflammatory bowel disease, malignancy, Tawana-More tear, esophagitis, peptic ulcer disease, variceal bleed, gastritis, epistaxis, fissure, hemorrhoids, as well as other pathologies. ER treatment provided: See below Diagnostics interpreted by me: ECG: EKG was obtained in the emergency department. My interpretation is atrial fibrillation at 92 bpm. Poor R wave progression was noted. Nonspecific ST segment abnormalities were noted. This was compared to a tracing from July 17, 2024. No changes were noted. Cardiac Monitoring: An order was placed for continuous cardiac monitoring. The monitor shows a rate of 100 bpm with atrial fibrillation. Laboratory studies: As stated above and show below. Imaging studies: See below. Radiographic imaging was reviewed by myself Consultation(s): I discussed this case with Dr. Roy who [facility] [place]. Past Med/Surg History Problem List (Updated 07/25/24 @ 17:13 by Og Roy MD) Acute exacerbation of chronic heart failure Recurrent colitis due to Clostridium difficile Acute lower GI bleeding (Acute) Anemia (Acute) CHF (congestive heart failure) (Acute) Cellulitis (Acute) Edema (Acute) Elevated brain natriuretic peptide (BNP) level (Acute) Atrial fibrillation with rapid ventricular response (Acute) Generalized weakness (Acute) Acute GI bleeding (Acute) Anemia (Acute) Transfusion-dependent anemia Elevated lipase Melena Acute on chronic anemia CKD (chronic kidney disease) (Acute) Symptomatic anemia (Acute) Acute GI bleeding (Acute) Blood in both ear canals Osteoarthritis of right knee Bilateral chronic serous otitis media Generalized weakness (Acute) Diarrhea (Acute) Ambulatory dysfunction (Acute) Anemia Paroxysmal A-fib Acute heart failure with preserved ejection fraction (HFpEF) Lumbar transverse process fracture Hypovolemic shock Encounter for pre-operative examination Colon polyps Acute kidney injury superimposed on CKD Heme positive stool Acute blood loss anemia Symptomatic anemia (Acute) Acute hypotension (Acute) Acute GI bleeding (Acute) Status post fall Chronic heart failure with preserved ejection fraction (HFpEF) Hypervolemia (Acute) ETD (eustachian tube dysfunction) Encounter for pre-operative examination Immunosuppressed status Dental infection Generalized weakness (Acute) Congestive heart failure (Acute) Hypoxia (Acute) Hematuria Electrolyte imbalance Diarrhea Coronary artery disease COPD (chronic obstructive pulmonary disease) (Acute) Hypomagnesemia (Acute) DVT prophylaxis Hypomagnesemia CHF (congestive heart failure) (Acute) Acute respiratory failure with hypoxia SOB (shortness of breath) History of total right hip replacement 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 Dementia (Acute) Sensorineural hearing loss (SNHL) of both ears S/P triple vessel bypass (2011[place] [facility] [place]; f/u Dr. Benz Thompson Moderate mitral regurgitation f/u Dr. 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 Benz, Thompson Eliquis on hold due to anemia History of blood transfusion 10/06/23- was admitted at [facility], low blood count, reason for upcoming procedure 03/24/23, "he's bleeding somewhere, has a low blood count, not sure where losing it from"; f/u Dr. 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 History of pneumonia end of 01/2023, found in lt. 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 Parkinson's>no current issues Diastolic dysfunction Lower extremity edema HUNTER (iron deficiency anemia) Ambulatory dysfunction Seasonal allergies Thoracic aortic aneurysm sx in 2011, [place] [facility] [place] Lumbar spondylosis MUSTAFA (dyspnea on exertion) inh prn Coronary aneurysm (2011) Per cardio records CAD with CABG in 2011 ([facility]IL[facility] to LAD and exclusion of RCA aneurysm Adverse reaction to anesthetic agent 2011 w/hip replacement>hallucinated for 3 days Orthostatic hypotension (07/2019) Peripheral arterial disease Recurrent cellulitis of lower extremity reason for daily cephalexin Anxiety CAD (coronary artery disease) history of CABG (CHILDS to LAD and exclusion of a right coronary artery aneurysm), 2011 at [facility] [place]. Surgical History History of carpal tunnel release of both wrists History of esophagogastroduodenoscopy (EGD) Hx of colonoscopy Hx of bilateral cataract extraction History of neck surgery [facility] w/Dr. 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 foot H/O eye surgery numerous when he was young Family History Unknown No problems noted. Father Hypertension, Onset Age: 40 at 40 Mother Hypertension COPD (chronic obstructive pulmonary disease) Diabetes Brother Allergies Asthma Denies family history of Prostate cancer Hearing loss No family history of adverse response to anesthesia No family history of bleeding disorder Heart disease Cancer Stroke Social History Smoking Status: Never smoker Tobacco Type: Cigars Second Hand Exposure: No; Do You Dip or Chew Tobacco: No; Hx Alcohol Use: No Hx Substance Use: No Preferred Language: Nigerian Communication Ability: Effective Communication Ability Comment: Hard of hearing Management Tech Required: No Beliefs That Will Affect Care: None marital status: Current Living Situation: Spouse Current Living Situation Comment: Lives at home with spouse Feels Safe at Home: Yes Assistive Devices: Cane, Oxygen - at Night and Walker Allergies Allergies Allergy/AdvReac Type Severity Reaction Status Date / Time NSAIDS (Non-Steroidal Allergy Intermediate Rash Verified 07/22/24 09:17 Anti-Inflamma YONATAN Inhibitors AdvReac Intermediate Cough Verified 07/22/24 09:17 carbidopa AdvReac Intermediate constipatio Verified 07/22/24 09:17 n levodopa AdvReac Intermediate constipatio Verified 07/22/24 09:17 n Home Meds Home Medications Medication Instructions Recorded Confirmed amantadine HCl 100 mg capsule 100 mg PO QAM 05/22/20 07/25/24 torsemide 20 mg tablet 20 mg PO QAM 11/28/22 07/25/24 dutasteride 0.5 mg capsule 0.5 mg PO QAM 01/24/23 07/25/24 donepezil 10 mg tablet 10 mg PO QAM 10/06/23 07/25/24 atorvastatin 40 mg tablet 40 mg PO QAM 01/08/24 07/25/24 acetaminophen 500 mg tablet 1,000 mg PO Q8H PRN Pain 02/29/24 07/25/24 betamethasone dipropionate 0.05 % 1 applic topical BID 02/29/24 07/25/24 topical ointment vitamin B complex 1 cap PO DAILY 02/29/24 07/25/24 allopurinol 300 mg tablet 300 mg PO QAM 07/25/24 07/25/24 metoprolol succinate 25 mg 50 mg PO QAM 07/25/24 07/25/24 tablet,extended release 24 hr Previous Rx's Medication Instructions Recorded escitalopram oxalate 20 mg tablet 20 mg PO QAM #90 tabs 02/09/24 doxycycline hyclate 100 mg capsule 100 mg PO BID #9 caps 05/07/24 Results & Data (ED) Vital Signs Vital Signs - 24 hr 07/25/24 13:05 07/25/24 13:20 07/25/24 15:28 Temperature 36.7 C Temperature Source Oral Pulse Rate 89 115 H Pulse Rate [Apical] 103 H Respiratory Rate 21 16 Respiratory Effort / Characteristics Non-Labored Non-Labored Respiratory Depth Normal Normal Respiratory Pattern Regular Blood Pressure 156/79 H Blood Pressure [Left Arm] 168/90 H Blood Pressure Mean 104 Blood Pressure Mean [Left Arm] 116 Pulse Oximetry 95 95 Oxygen Delivery Method Room Air Room Air Sepsis Recent Fever Within 48 Hours No Sepsis New/Unexplained Change in Mental Status N/A Sepsis Action Taken by Nursing No Action Required 07/25/24 17:03 Temperature Temperature Source Pulse Rate 100 H Pulse Rate [Apical] Respiratory Rate Respiratory Effort / Characteristics Respiratory Depth Respiratory Pattern Blood Pressure Blood Pressure [Left Arm] Blood Pressure Mean Blood Pressure Mean [Left Arm] Pulse Oximetry Oxygen Delivery Method Sepsis Recent Fever Within 48 Hours Sepsis New/Unexplained Change in Mental Status Sepsis Action Taken by Alf Medications Current Medication List: was personally reviewed by me Laboratory Data Attestation: I reviewed the patient's lab results. 07/25/24 12:59 07/25/24 12:59 Lab Results 07/25/24 07/25/24 Range/Units 12:59 14:00 WBC 4.74 L (4.8-10.8) K/ul RBC 2.51 L (4.70-6.10) M/uL Hgb 8.1 L (14.0-18.0) g/dl Hct 26.7 L (42.0-52.0) % MCV 106.4 H (80.0-100.0) fL MCH 32.3 (25.0-34.0) pg MCHC 30.3 L (32.0-36.0) g/dL RDW Std Deviation 67.7 H (36.4-46.3) fL RDW Coeff of Anny 17.7 H (11.5-14.5) % Plt Count 184 (130-400) K/uL MPV 9.2 L (9.4-12.4) fL Immature Gran % (Auto) 1.7 % Neut % (Auto) 75.1 % Lymph % (Auto) 15.4 % Crisp % (Auto) 7.4 % Eos % (Auto) 0.0 % Baso % (Auto) 0.4 % Neut # (Auto) 3.56 (1.40-6.50) K/uL Lymph # (Auto) 0.73 L (1.20-3.40) K/uL Crisp # (Auto) 0.35 (0.11-0.59) K/uL Eos # (Auto) 0.00 (0.00-0.50) K/uL Baso # (Auto) 0.02 (0.00-0.20) K/uL Immature Gran # (Auto) 0.08 (0.01-0.20) K/uL Absolute Nucleated RBC 0.02 (0.00-0.12) K/uL Nucleated RBC % (auto) 0.4 % PT 11.1 (9.0-12.0) Seconds INR 1.0 (0.9-1.1) APTT 27 (21-31) Seconds PTT Ratio 1.0 Sodium 139 (136-145) mmol/L Potassium 4.8 (3.5-5.1) mmol/L Chloride 108 H (98-107) mmol/L Carbon Dioxide 25 (21-32) mmol/L Anion Gap 6 (3-11) BUN 20 (6-23) mg/dl Creatinine 1.24 (0.6-1.4) mg/dl Est Cr Clr Drug Dosing 47.3 ml/min eGFR 58.78 BUN/Creatinine Ratio 16.1 (10-20) Glucose 136 H (70-99(Fasting)) mg/dl Calcium 9.7 (8.6-10.3) mg/dl Total Bilirubin 0.5 (0.2-1.0) mg/dl AST 22 (13-39) U/L ALT 34 (7-52) U/L Alkaline Phosphatase 140 H (34-104) U/L Troponin I High Sens 16.2 (0-20) pg/ml Total Protein 5.6 L (6.0-8.3) gm/dl Albumin 3.3 L (3.4-5.0) gm/dl Globulin 2.3 L (2.5-4.0) gm/dl Albumin/Globulin Ratio 1.4 (0.9-2) Lipase 161 H (11-82) U/L Urine Color Yellow Urine Appearance Clear (Clear) Urine pH 5.0 (4.5-7.5) Ur Specific [place] 1.016 (1.000-1.030) Urine Protein 2+ H (Negative) Urine Glucose (UA) Negative (Negative) Urine Ketones Negative (Negative) Urine Blood Negative (Negative) Urine Nitrite Negative (Negative) Urine Bilirubin Negative (Negative) Urine Urobilinogen Negative (Negative) Ur Leukocyte Esterase Negative (Negative) Urine WBC (Auto) 0-5 (0-5) /hpf Urine RBC (Auto) 0-2 (0-2) /hpf U Hyaline Cast (Auto) 0-2 (0-2) /lpf U Epithel Cells (Auto) 0-2 (0-2) /hpf Urine Bacteria (Auto) None Seen (None Seen) Administered Medications Discontinued Medications Leyva Syrup (Leyva Syrup 5 Ml Udp) 5 ml PO ONE STA Stop: 07/25/24 15:41 Last Admin: 07/25/24 16:32 Dose: Not Given Documented By: CARLOS Ceftriaxone Sodium (Rocephin) 2,000 mg in 50 mls @ 100 mls/hr IV NOW STA Stop: 07/25/24 16:09 Last Admin: 07/25/24 16:32 Dose: Not Given Documented By: CARLOS Vancomycin HCl (Vancomycin Hcl 250 Mg/5 Ml Soln) 250 mg PO ONE STA Stop: 07/25/24 15:41 Last Admin: 07/25/24 16:33 Dose: Not Given Documented By: CARLOS Imaging Data Attestation: I personally reviewed and interpreted this imaging study as follows: My Impression: 1 view chest x-ray was obtained in the emergency department. My interpretation is cardiomegaly with volume overload, final report below. Radiologist's Impression: Chest X-Ray 07/25/24 13:18 XR chest 1V portable, XR KUB/Abdomen 1 view HISTORY: 79 years-old Male GIB acute chest abdominal pain with GI bleed COMPARISON: Chest radiograph 07/17/2024, CT abdomen and pelvis 05/04/2024 TECHNIQUE: AP view of the chest with KUB radiograph FINDINGS: CHEST: Cardiomegaly. Median sternotomy with CABG. Pulmonary vascular congestion. Atherosclerosis of the aorta. No pneumothorax or large pleural effusion. Mild subsegmental bibasilar densities. Cervical spinal fusion hardware. Chronic appearing left-sided rib fractures. KUB: Right hip arthroplasty. Bones appear grossly intact. Nonobstructive bowel gas pattern. No pneumoperitoneum or urolith identified. IMPRESSION: 1. Thyromegaly with pulmonary vascular congestion. 2. Mild bibasilar opacities favor atelectasis. 3. Nonobstructive bowel gas pattern. ACT 112: Negative or not required by law. The above report was generated using voice recognition software. It may contain grammatical, syntax or spelling errors. Electronically signed by: David Stewart M.D. 07/25/2024 1:56 PM KUB X-Ray 07/25/24 13:25 XR chest 1V portable, XR KUB/Abdomen 1 view HISTORY: 79 years-old Male GIB acute chest abdominal pain with GI bleed COMPARISON: Chest radiograph 07/17/2024, CT abdomen and pelvis 05/04/2024 TECHNIQUE: AP view of the chest with KUB radiograph FINDINGS: CHEST: Cardiomegaly. Median sternotomy with CABG. Pulmonary vascular congestion. Atherosclerosis of the aorta. No pneumothorax or large pleural effusion. Mild subsegmental bibasilar densities. Cervical spinal fusion hardware. Chronic appearing left-sided rib fractures. KUB: Right hip arthroplasty. Bones appear grossly intact. Nonobstructive bowel gas pattern. No pneumoperitoneum or urolith identified. IMPRESSION: 1. Thyromegaly with pulmonary vascular congestion. 2. Mild bibasilar opacities favor atelectasis. 3. Nonobstructive bowel gas pattern. ACT 112: Negative or not required by law. The above report was generated using voice recognition software. It may contain grammatical, syntax or spelling errors. Electronically signed by: David Stewart M.D. 07/25/2024 1:56 PM Discharge Plan Visit Data Chief Complaint: Rectal Bleed Stated Complaint: RECTAL BLEED, CELLULITUS IN LEG, EXT. EDEMA ED Provider: Tonio Wild Discharge Problem: CHF (congestive heart failure), Anemia, Acute lower GI bleeding Patient Disposition: Being Evaluated by Hospitalist Forms Stand Alone Forms: My [facility] Prescriptions Prescriptions: No Action torsemide 20 mg tablet 20 mg PO QAM MDD 40mg Hold Instructions: Hold until your diarrhea resolves/follow up with PCP for instructions Rx Instructions: Take 20mg by mouth in the morning, May take additional 20mg later in the day as needed for weight gain escitalopram oxalate 20 mg tablet 20 mg PO QAM Qty: 90 3RF amantadine HCl 100 mg capsule 100 mg PO QAM dutasteride 0.5 mg Capsule 0.5 mg PO QAM donepezil 10 mg tablet 10 mg PO QAM atorvastatin 40 mg Tablet 40 mg PO QAM betamethasone dipropionate 0.05 % ointment 1 applic TOPICAL BID Rx Instructions: apply to skin lesions and scalp lesions up to two times a day for no longer than two weeks at a time for itch, then, take a two week break. acetaminophen 500 mg Tablet 1,000 mg PO Q8H PRN (Reason: Pain) vitamin B complex Capsule 1 cap PO DAILY doxycycline hyclate 100 mg Capsule 100 mg PO BID Qty: 9 0RF metoprolol succinate 25 mg tablet extended release 24 hr 50 mg PO QAM allopurinol 300 mg tablet 300 mg PO QAM Referrals Referrals: Michael Hinton MD [Primary Care Provider] - Discharge Problem: CHF (congestive heart failure) Qualifiers: Heart failure type: unspecified Heart failure chronicity: unspecified Qualified Code(s): I50.9 - Heart failure, unspecified Anemia Qualifiers: Anemia type: unspecified type Qualified Code(s): D64.9 - Anemia, unspecified
--- NOTE | 2024-07-25 13:57 | XRay Report ---
XR chest 1V portable, XR KUB/Abdomen 1 view HISTORY: 79 years-old Male GIB acute chest abdominal pain with GI bleed COMPARISON: Chest radiograph 07/17/2024, CT abdomen and pelvis 05/04/2024 TECHNIQUE: AP view of the chest with KUB radiograph FINDINGS: CHEST: Cardiomegaly. Median sternotomy with CABG. Pulmonary vascular congestion. Atherosclerosis of t he aorta. No pneumothorax or large pleural effusion. Mild subsegmental bibasilar densities. Cervical spinal fusion hardware. Chronic appearing left-sided rib fractures. KUB: Right hip arthroplasty. Bones appear grossly intact. Nonobstructive bowel gas pattern. No pneumo peritoneum or urolith identified. IMPRESSION: 1. Thyromegaly with pulmonary vascular congestion. 2. Mild bibasilar opacities favor atelectasis. 3. Nonobstructive bowel gas pattern. ACT 112: Negative or not required by law. The above report was generated using voice recognition software. It may contain grammatical, syntax o r spelling errors. Electronically signed by: David Stewart M.D. 07/25/2024 1:56 PM
[2024-07-25 14:16] LABS: Appearance Urine Clear (Clear); Bacteria Urine Automated None Seen (None Seen); Bilirubin Urine Negative (Negative); Blood Urine Negative (Negative); Cast Urine Automated 0-2 /lpf (0-2); Color Urine Yellow; Epithelial Cell Urine Auto 0-2 /hpf (0-2); Glucose Urine UA Negative (Negative); Ketones Urine Negative (Negative); Leukocyte Esterase Urine Negative (Negative); Nitrite Urine Negative (Negative); Protein Urine 2+ (Negative); RBC Urine Automated 0-2 /hpf (0-2); Specific Gravity Urine 1.016 (1.000-1.030); Urobilinogen Urine Negative (Negative); WBC Urine Automated 0-5 /hpf (0-5)
[2024-07-25 15:16] LABS: Albumin Globulin Ratio 1.4 (0.9-2); Albumin Level 3.3 gm/dl (3.4-5.0); BUN Creatinine Ratio 16.1 (10-20); Bilirubin,Total 0.5 mg/dl (0.2-1.0); Calcium 9.7 mg/dl (8.6-10.3); Creatinine Clr Calc Pharmacy 47.3 ml/min; Globulin 2.3 gm/dl (2.5-4.0); Potassium 4.8 mmol/L (3.5-5.1); Total Protein 5.6 gm/dl (6.0-8.3)
[2024-07-25 15:23] LABS: Troponin I High Sensitivity 16.2 pg/ml (0-20)
[2024-07-25 15:28] LABS: Basophils # (auto) 0.02 K/uL (0.00-0.20); Basophils % (auto) 0.4 %; Hematocrit (blood only) 26.7 % (42.0-52.0); Hemoglobin 8.1 g/dl (14.0-18.0); Immature Granulocytes # (auto) 0.08 K/uL (0.01-0.20); Immature Granulocytes % (auto) 1.7 %; Lymphocytes # (auto) 0.73 K/uL (1.20-3.40); Lymphocytes % (auto) 15.4 %; Mean Corpuscular Hemoglobin 32.3 pg (25.0-34.0); Mean Corpuscular Hgb Conc 30.3 g/dL (32.0-36.0); Mean Corpuscular Volume 106.4 fL (80.0-100.0); Mean Platelet Volume 9.2 fL (9.4-12.4); Monocytes # (auto) 0.35 K/uL (0.11-0.59); Monocytes % (auto) 7.4 %; Neutrophils # (auto) 3.56 K/uL (1.40-6.50); Neutrophils % (auto) 75.1 %; Nucleated RBC # (auto) 0.02 K/uL (0.00-0.12); Nucleated RBC % (auto) 0.4 %; Platelet Count 184 K/uL (130-400); RDW Coefficient of Variation 17.7 % (11.5-14.5); RDW Standard Deviation 67.7 fL (36.4-46.3); Red Blood Count 2.51 M/uL (4.70-6.10); White Blood Count 4.74 K/ul (4.8-10.8)
[2024-07-25 15:45] LABS: Partial Thromboplastin Time 27 Seconds (21-31); Prothrombin Time 11.1 Seconds (9.0-12.0)
[2024-07-25] MEDS: cefTRIAXone SODIUM 2,000 MG/50 ML BAG IV STA (16:32)
[2024-07-25] MEDS: CHERRY SYRUP 5 ML UDP PO STA (16:32)
[2024-07-25] MEDS: VANCOMYCIN HCL 250 MG/5 ML SOLN PO STA (16:33)
--- NOTE | 2024-07-25 16:38 | Electrocardiogram Report ---
Test Reason : Blood Pressure : */* mmHG Vent. Rate : 92 BPM Atrial Rate : * BPM P-R Int : * ms QRS Dur : 92 ms QT Int : 348 ms P-R-T Axes : * -42 43 degrees QTcB Int : 430 ms Sinus rhythm with frequent atrial ectopy Left axis deviation Poor R wave progression, consider anterior WI vs. lead placement vs. LVH Abnormal ECG When compared with ECG of 17-Jul-2024 11:34, QT has shortened Confirmed by Jw Ward ([id number]) on 07/25/2024 4:38:06 PM Referred By: Confirmed By: Jw Ward
--- NOTE | 2024-07-25 17:05 | History & Physical Report ---
Date of Service July 25, 2024 Assessment & Plan (1) Acute lower GI bleeding: (2) Recurrent colitis due to Clostridium difficile: (3) Acute exacerbation of chronic heart failure: (4) Edema of both legs: (5) Coronary artery disease: (6) Paroxysmal A-fib: (7) Dementia associated with Parkinson's disease: (8) Diabetes type 2, controlled: (9) CKD (chronic kidney disease) stage 3, GFR 30-59 ml/min: Plan: 79-year-old male with history of coronary disease/CABG, CHF diastolic type, mitral and aortic regurgitation, paroxysmal atrial fibrillation, diabetes type 2, CKD stage III, BPH, chronic lower extremity stasis ulcers, dementia with Parkinson disease, anemia of iron deficiency, presenting with bright red blood per rectum x 2 days. Hematochezia Likely secondary to recurrent C. difficile, third episode Hemoglobin 8.1, baseline is 9 Has chronic iron deficiency anemia, has received blood transfusion and IV iron last week Repeat hemoglobin at 7 PM Discontinue vancomycin, start fidaxomicin 200 mg p.o. twice daily GI consult N.p.o. for now Check anemia panel Acute on chronic congestive heart failure Moderate aortic and mitral regurgitation Diastolic type Usually on torsemide 20 g p.o. daily Start Lasix 40 mg IV daily Echocardiogram was recently done back in April 2024 Chronic bilateral lower extremity edema with wounds Questionable cellulitis versus erythema secondary to chronic edema Hold antibiotics for now in light of recurrent C. difficile Check procalcitonin Wound care consulted Coronary disease/CABG Not on aspirin Continue Lipitor and metoprolol Paroxysmal atrial fibrillation Not on anticoagulation secondary to recurrent GI bleed per records Continue metoprolol Diabetes type 2 Usually on metformin Insulin sliding scale for now GERD Continue Protonix BPH Continue dutasteride CKD stage III Stable Parkinson with dementia Continue omeprazole, bupropion, ezetimibe CODE STATUS full code Disposition lives at home with with home health services May benefit from [facility] facility or acute rehab for closer attention and care of lower extremity edema with wounds History of Present Illness Chief Complaint: Bright red blood per rectum x 2 days Primary Care Provider: Michael Hinton MD 79-year-old male with history of coronary disease/CABG, CHF diastolic type, mitral and aortic regurgitation, paroxysmal atrial fibrillation, diabetes type 2, CKD stage III, BPH, chronic lower extremity stasis ulcers, dementia with Parkinson disease, anemia of iron deficiency, presenting with bright red blood per rectum x 2 days. History obtained from patient and his at the bedside. Patient was diagnosed with C. difficile for the third time last July 12, 2024 and has been on a vancomycin taper since that time. As per , patient's diarrhea has not been improving, still having occasional lower abdominal discomfort, and yesterday started to have bright red blood per rectum 2-3 times a day. Hematochezia persisted until today, hence was sent to the ER by the home health nurse. Patient also started with cephalexin p.o. as an outpatient during the last week of June for lower leg cellulitis. As per no improvement with the appearance of the lower extremities. Patient also having increased swelling of the lower extremities as well as both hands. At the ER, patient was received with elevated blood pressure but otherwise afebrile, rest of vital signs are stable. On exam, patient seen sitting up in bed, on room air, not in distress. Awake and alert, trying to answer questions, sometimes forgetful. Denies active shortness of breath, chest pain, nausea, abdominal pain, leg pain. Allergies Allergy/AdvReac Type Severity Reaction Status Date / Time NSAIDS (Non-Steroidal Allergy Intermediate Rash Verified 07/22/24 09:17 Anti-Inflamma YONATAN Inhibitors AdvReac Intermediate Cough Verified 07/22/24 09:17 carbidopa AdvReac Intermediate constipatio Verified 07/22/24 09:17 n levodopa AdvReac Intermediate constipatio Verified 07/22/24 09:17 n Home Medications Medication Instructions Recorded Confirmed Type amantadine HCl 100 mg capsule 100 mg PO QAM 05/22/20 07/25/24 History torsemide 20 mg tablet 20 mg PO QAM 11/28/22 07/25/24 History dutasteride 0.5 mg capsule 0.5 mg PO QAM 01/24/23 07/25/24 History donepezil 10 mg tablet 10 mg PO QAM 10/06/23 07/25/24 History atorvastatin 40 mg tablet 40 mg PO QAM 01/08/24 07/25/24 History escitalopram oxalate 20 mg tablet 20 mg PO QAM #90 tabs 02/09/24 07/25/24 Rx acetaminophen 500 mg tablet 1,000 mg PO Q8H PRN Pain 02/29/24 07/25/24 History betamethasone dipropionate 0.05 % 1 applic topical BID 02/29/24 07/25/24 History topical ointment vitamin B complex 1 cap PO DAILY 02/29/24 07/25/24 History doxycycline hyclate 100 mg capsule 100 mg PO BID #9 caps 05/07/24 07/25/24 Rx allopurinol 300 mg tablet 300 mg PO QAM 07/25/24 07/25/24 History metoprolol succinate 25 mg 50 mg PO QAM 07/25/24 07/25/24 History tablet,extended release 24 hr Past Med/Surg History Problem List (Updated 07/25/24 @ 17:13 by Og Roy MD) Acute exacerbation of chronic heart failure Recurrent colitis due to Clostridium difficile Acute lower GI bleeding (Acute) Anemia (Acute) CHF (congestive heart failure) (Acute) Cellulitis (Acute) Edema (Acute) Elevated brain natriuretic peptide (BNP) level (Acute) Atrial fibrillation with rapid ventricular response (Acute) Generalized weakness (Acute) Acute GI bleeding (Acute) Anemia (Acute) Transfusion-dependent anemia Elevated lipase Melena Acute on chronic anemia CKD (chronic kidney disease) (Acute) Symptomatic anemia (Acute) Acute GI bleeding (Acute) Blood in both ear canals Osteoarthritis of right knee Bilateral chronic serous otitis media Generalized weakness (Acute) Diarrhea (Acute) Ambulatory dysfunction (Acute) Anemia Paroxysmal A-fib Acute heart failure with preserved ejection fraction (HFpEF) Lumbar transverse process fracture Hypovolemic shock Encounter for pre-operative examination Colon polyps Acute kidney injury superimposed on CKD Heme positive stool Acute blood loss anemia Symptomatic anemia (Acute) Acute hypotension (Acute) Acute GI bleeding (Acute) Status post fall Chronic heart failure with preserved ejection fraction (HFpEF) Hypervolemia (Acute) ETD (eustachian tube dysfunction) Encounter for pre-operative examination Immunosuppressed status Dental infection Generalized weakness (Acute) Congestive heart failure (Acute) Hypoxia (Acute) Hematuria Electrolyte imbalance Diarrhea Coronary artery disease COPD (chronic obstructive pulmonary disease) (Acute) Hypomagnesemia (Acute) DVT prophylaxis Hypomagnesemia CHF (congestive heart failure) (Acute) Acute respiratory failure with hypoxia SOB (shortness of breath) History of total right hip replacement 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 Dementia (Acute) Sensorineural hearing loss (SNHL) of both ears S/P triple vessel bypass (2011) [facility] [place] w/Dr. Weathers; f/u Dr. Benz, KWABENA Moderate mitral regurgitation f/u Dr. Benz, KWABENA 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Acute) Primary parkinsonism (Acute) GERD (gastroesophageal reflux disease) HTN (hypertension) CKD (chronic kidney disease) stage 3, GFR 30-59 ml/min (Acute) Diabetes type 2, controlled Dyslipidemia BPH (benign prostatic hyperplasia) Medical History GI bleed 09/2023 Anemia 09/2023 inpt at [facility] Atrial fibrillation f/u KWABENA Fritz Eliquis on hold due to anemia History of blood transfusion 10/06/23- was admitted at [facility], low blood count, reason for upcoming procedure 03/24/23, "he's bleeding somewhere, has a low blood count, not sure where losing it from"; f/u Dr. 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 History of pneumonia end of 01/2023, found in lt. 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 Parkinson's>no current issues Diastolic dysfunction Lower extremity edema HUNTER (iron deficiency anemia) Ambulatory dysfunction Seasonal allergies Thoracic aortic aneurysm sx in 2011, at [facility] [place] Lumbar spondylosis MUSTAFA (dyspnea on exertion) inh prn Coronary aneurysm (2011) Per cardio records CAD with CABG in 2011 (CHILDS to LAD and exclusion of RCA aneurysm Adverse reaction to anesthetic agent 2011 w/hip replacement>hallucinated for 3 days Orthostatic hypotension (07/2019) Peripheral arterial disease Recurrent cellulitis of lower extremity reason for daily cephalexin Anxiety CAD (coronary artery disease) history of CABG (CHILDS to LAD and exclusion of a right coronary artery aneurysm), 2011 at [facility] [place]. Surgical History History of carpal tunnel release of both wrists History of esophagogastroduodenoscopy (EGD) Hx of colonoscopy Hx of bilateral cataract extraction History of neck surgery [facility] w/Dr. Pacheco; ROM-"can't turn it very far side to side nor move it up or down very far" S/P wrist surgery S/P CABG (coronary artery bypass graft) (2012) CHILDS, "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 History of right hip replacement H/O foot surgery reconstructive sx on rt. foot H/O eye surgery numerous when he was young Family History Unknown No problems noted. Father Hypertension, Onset Age: 40 at 40 Mother Hypertension COPD (chronic obstructive pulmonary disease) Diabetes Brother Allergies Asthma Denies family history of Prostate cancer Hearing loss No family history of adverse response to anesthesia No family history of bleeding disorder Heart disease Cancer Stroke Social History Smoking Status: Never smoker Tobacco Type: Cigars Second Hand Exposure: No; Do You Dip or Chew Tobacco: No; Hx Alcohol Use: No Hx Substance Use: No Preferred Language: Indian Communication Ability: Effective Communication Ability Comment: Hard of hearing Residential Roofer Helper Required: No Beliefs That Will Affect Care: None marital status: Current Living Situation: Spouse Current Living Situation Comment: Lives at home with spouse Feels Safe at Home: Yes Assistive Devices: Cane, Oxygen - at Night and Walker Review of Systems Review of Systems: all noted and negative except for above Physical Exam Physical Exam: General- oriented x 3, not in distress, speaks in sentences with no effort or accessory muscle use Head- atraumatic Eyes- PERRL, EOMI, anicteric ENT- oropharynx clear Neck- supple, no JVD, no adenopathy, no thyromegaly; carotids +2/2, no bruits appreciated Lungs- clear to auscultation bilaterally, no rales/wheezes Heart- normal rate, regular rhythm; Positive grade 2 systolic murmur Abdomen- normal bowel sounds, nondistended, soft, nontender, no masses or hepatosplenomegaly Extremities- Bilateral lower extremity: Positive moderate erythema, positive dry skin, with small open areas with dried serous substance on the dressings Mild warmth, no tenderness, no bleeding Bilateral feet: hyperpigmented, scaly Neuro- alert, oriented x 3, sometimes forgetful ; CN 2-12 grossly intact; motor 5/5 bilaterally;sensation 100% on all extremities; no other gross focal neurologic deficits Skin- warm & dry Results & Data Results & Data Vital Signs (Past 12 Hours) Vital Signs Temp Pulse Pulse Resp BP BP Pulse Ox 07/25/24 15:28 103 H 16 168/90 H 95 07/25/24 13:20 115 H 07/25/24 13:05 36.7 C 89 21 156/79 H 95 O2 Del Method 07/25/24 15:28 Room Air 07/25/24 13:20 07/25/24 13:05 Room Air Code Status & VTE Plan VTE Prophylaxis Plan VTE Prophylaxis will be ordered: Yes
[2024-07-25] MEDS ORDERED: GLUCOSE 40% GEL 15 GM TUBE PO PRN (20:58)
[2024-07-25] MEDS ORDERED: CARBOHYDRATES FOR HYPOGLYCEMIA PO PRN (20:58)
[2024-07-25] MEDS ORDERED: DEXTROSE 50% 50 ML SYRINGE IV PRN (20:58)
[2024-07-25] MEDS ORDERED: ACETAMINOPHEN 325 MG TAB PO PRN (20:58)
[2024-07-25] MEDS ORDERED: GLUCAGON FOR INJ 1 MG VIAL SQ PRN (20:58)
[2024-07-25] MEDS ORDERED: GLUCOSE 10 TAB/TUBE PO PRN (20:58)
[2024-07-25] MEDS: INSULIN ASPART PER UNIT CHARGE SC SCH (21:44)
[2024-07-25] MEDS: FIDAXOMICIN 200 MG TAB PO SCH (21:48)
[2024-07-25] MEDS: FUROSEMIDE 40 MG/4 ML VIAL IV ONE (21:48)
[2024-07-25 22:07] LABS: Hematocrit (blood only) 25.3 % (42.0-52.0); Hemoglobin 8.1 g/dl (14.0-18.0)
[2024-07-26 06:43] LABS: Basophils # (auto) 0.04 K/uL (0.00-0.20); Eosinophils # (auto) 0.03 K/uL (0.00-0.50); Eosinophils % (auto) 0.8 %; Hematocrit (blood only) 26.1 % (42.0-52.0); Hemoglobin 8.3 g/dl (14.0-18.0); Immature Granulocytes # (auto) 0.08 K/uL (0.01-0.20); Lymphocytes # (auto) 0.65 K/uL (1.20-3.40); Lymphocytes % (auto) 16.5 %; Mean Corpuscular Hemoglobin 32.9 pg (25.0-34.0); Mean Corpuscular Hgb Conc 31.8 g/dL (32.0-36.0); Mean Corpuscular Volume 103.6 fL (80.0-100.0); Mean Platelet Volume 8.8 fL (9.4-12.4); Monocytes # (auto) 0.36 K/uL (0.11-0.59); Monocytes % (auto) 9.1 %; Neutrophils # (auto) 2.78 K/uL (1.40-6.50); Neutrophils % (auto) 70.6 %; Platelet Count 162 K/uL (130-400); RDW Coefficient of Variation 17.6 % (11.5-14.5); RDW Standard Deviation 66.7 fL (36.4-46.3); Red Blood Count 2.52 M/uL (4.70-6.10); White Blood Count 3.94 K/ul (4.8-10.8)
[2024-07-26 07:08] LABS: BUN Creatinine Ratio 14.4 (10-20); Calcium 9.4 mg/dl (8.6-10.3); Creatinine Clr Calc Pharmacy 46.4 ml/min; Potassium 4.5 mmol/L (3.5-5.1)
[2024-07-26 07:24] LABS: Folate (Folic Acid),Ser orPlas 14.37 ng/ml (>5.38)
[2024-07-26 07:34] LABS: Estimated Average Glucose 108 mg/dl; Hemoglobin A1C 5.4 % (4.5-5.6)
[2024-07-26] MEDS: FINASTERIDE 5 MG TAB PO SCH (08:14)
[2024-07-26] MEDS: allopurinoL 300 MG TAB PO SCH (08:14)
[2024-07-26] MEDS: ESCITALOPRAM OXALATE 20 MG TAB PO SCH (08:14)
[2024-07-26] MEDS: FUROSEMIDE 40 MG/4 ML VIAL IV SCH (08:14)
[2024-07-26] MEDS: VITAMIN B COMPLEX TAB PO SCH (08:14)
[2024-07-26] MEDS: AMANTADINE HCL 100 MG CAPSULE PO SCH (08:14)
[2024-07-26] MEDS: ATORVASTATIN 40 MG TAB PO SCH (08:14)
--- OUTSIDE RECORDS SUMMARY | 2024-07-26 09:36 | External Medical Summary | Summary of Care ---
Author Name Unknown Organization [facility] Address [address] [place] [address] Phone [phone] Care Team Providers Care Bead Inspector Name Role Phone Michael Hinton MD Primary Care Provider [phone] Reason for Visit * Reason Onset Date Comments [facility]: Acute 07/25/2024 Encounter Details Date Type Department Care Team (Late st Contact Info) Description 07/25/2024 Telephone [facility], [facility] [address] [facility] [place] [address] Esperanza Plummer RN [address] [facility] [place] [address] [facility]: Acute Allergies Active Allergy Reactions Criticality Noted Date Comments Fabiano Inhibitors Cough 06/09/2017 Carbidopa W-Levodopa 03/17/2021 Constipation Nsaids Rash 05/17/2018 Contraindicated per automotive service management teacher documented as of this encounter (statuses as of 07/25/2024) Medications Medication Sig Dispensed Refills Start Date [...] a day 400 Each 3 08/29/2018 Active Vitamin D (Cholecalciferol) 25 MCG (1000 UT) Oral Capsule Take 1 Capsule by mouth every evening. 30 Capsule 03/28/2023 Active DIURETIC TITRATION PLAN If no improvement [...] Use with inhaler. 1 Each 01/23/2024 Active Additional Information Patient not taking.Reported on 05/29/2024 Escitalopram Oxalate 20 MG Oral Tablet (Lexapro) take one tablet by mouth daily in the morning 90 Tablet 3 02/09/2024 Active Torsemide 20 MG Oral Tablet (Demadex)Indication s:Paroxysmal atrial fibrillation (HCC),Nonrheumatic mitral valve regurgitation,Coron daniel artery disease involving [place] coronary artery of [place] heart without angina pectoris,Stage 3b chronic kidney disease (HCC) Take 1 Tablet by mouth in the morning. 180 Tablet 3 03/13/2024 Active Pantoprazole Sodium 40 MG Oral Tablet Delayed Release (Protonix) TAKE ONE TABLET BY MOUTH EVERY DAY 90 Tablet 05/11/2024 05/11/2025 Active Metoprolol Succinate ER 25 MG Oral Tablet Extended Release 24 Hour (toPROL XL)Indications:Paro xysmal atrial fibrillation (HCC) Take 1 Tablet by mouth in the morning and 1 Tablet before bedtime. 180 Tablet 3 05/13/2024 Active Allopurinol 300 MG Oral Tablet (Zyloprim) Take 1 Tablet by mouth in the morning. 90 Tablet 3 05/13/2024 Active Amantadine HCl 100 MG Oral Capsule (Symmetrel) Take 1 capsule (100 mg total) by mouth daily . 90 Capsule 1 06/11/2024 Active Vancomycin HCl 125 MG Oral Capsule (Vancocin) Take 1 Capsule by mouth 4 times a day for 10 days, THEN 1 Capsule 2 times a day for 7 days, THEN 1 Capsule daily for 7 days, THEN 1 Capsule every other day for 14 days. 68 Capsule 07/13/2024 08/19/2024 Active Donepezil HCl 5 MG Oral Tablet (Aricept) Take 1 tablet (5 mg total) by mouth every morning 90 Tablet 07/22/2024 Active documented as of this encounter (statuses as of 07/25/2024) Active Problems Problem Noted Date Diagnosed Date Venous stasis ulcer of left lower leg with edema of left lower leg 07/15/2024 Gouty arthropathy 05/13/2024 Mild aortic regurgitation 03/07/2024 Mild mitral regurgitation 03/07/2024 Mitral valve prolapse 03/07/2024 Stasis ulcer of right lower extremity 01/24/2024 Last Assessment & Plan: Aquacel ag and dsd Monitor closely for s/s of cellulitis Will place HH ref to assist with dressings Chronic kidney disease, stage 3b 02/27/2023 Overview: Per CKD protocol Flexural atopic dermatitis 11/29/2022 Last Assessment & Plan: Continue Dupixent Paroxysmal atrial fibrillation 10/10/2022 Last Assessment & Plan: Not on anticoag due to anemia and bleeding risk Metoprolol recently increased due to RVR Urge incontinence 08/24/2022 Overweight (BMI 25.0-29.9) 07/13/2022 Chronic diastolic heart fail ure secondary to coronary artery disease 07/13/2022 Iron deficiency anemia 07/28/2021 Last Assessment & Plan: Follows with [facility] hematology Routine labs monitored by hem/onc Update CBC next week Gastro-esophageal reflux disease without esophag itis 06/21/2021 Last Assessment & Plan: Continue pantoprazole Wandering atrial pacemaker 02/18/2021 Last Assessment & Plan: Irregular today but rate controlled -? Pt not on any AC. Will d/w team Dementia associated with Parkinson's disease Last Assessment & Plan: Family assisting with all ADLs and IADLs BPH with obstruction/lower urinary tract symptom s [...] knees 03/21/2018 Coronary artery disease invo lving [place] coronary artery of [place] heart without angina pectoris 03/21/2018 Last Assessment [...] as of this encounter (statuses as of 07/25/2024) Resolved Problems Problem Noted Date Diagnosed Date Resolved Date Cerebral atrophy 03/07/2024 05/12/2024 Aortic ectasia, thoracic 03/07/2024 Atherosclerosis of aorta 03/07/2024 Paroxysmal atrial fibrillation 07/19/2023 03/07/2024 History of cellulitis 05/02/20232023 Last Assessment & Plan: Continues daily cephalexin 500mg for prevention Immunodeficiency 03/28/2023 01/24/2024 Last Assessment & Plan: Secondary to Dupixent Type 2 diabetes mellitus wit h stage 3b chronic kidney disease 02/27/2023 05/12/2024 Overview: Per CKD protocol Last Assessment & Plan: "RED FLAG" Diabetic symptoms: Generalized Weakness Goal HgbA1c <8 Diabetic Complications Vascular (examples: PVD, PAD, CAD, CVA) Renal (example: CKD, Proteinuria, Dialysis) Medication Regimen Metformin DM Secondary Prevention Moderate-High Intensity Statin Additional Comments Hgba1x 04/12/23--6.1 Hematuria, gross 08/24/2022 10/11/2023 Viral upper respiratory tract infection 08/08/2022 11/29/2022 Last Assessment & Plan: -resp panel -presume covid + -paxlovid, steroids Hypertensive heart and kidne y disease with chronic diastolic congestive heart failure and stage 3b chronic kidney disease 05/16/202204/23 Last Assessment & Plan: "RED FLAG" HF Symptoms: Leg Swelling (Examples: "I can't wear certain socks or shoes", "My pants feel tight") Medication Regimen: Beta Sheldon Therapy: Metoprolol Succinate (ER) FABIANO Inhibitor/ARB Therapy: No FABIANO/ARB/ARNI secondary to: cough Diuretic therapy: Torsemide Self - Management Plan Double dose of Torsemide for 3 days Exacerbation Plan BMP Pro-BNP Additional Comments: Resume torsemide at 20mg daily Continue to elevate legs Hx of Salmonella infection 05/16/2022 0 07/13/2022 [...] disorder, s kevin episode, moderate 06/21/2021 05/16/2022 Type 2 diabetes mellitus wit h diabetic peripheral angiopathy without gangrene 06/21/2021 0 05/12/2024 Last Assessment & Plan: Current Status: "Stable" for patient / At or near baseline Degree of Condition Awareness: Demonstrates very good awareness of condition, disease course, and prognosis "RED FLAG" Diabetic symptoms: o none Goal HgbA1c o <7 Diabetic Complications o Vascular (examples: PVD, PAD, CAD, CVA) Medication Regimen o Metformin DM Secondary Prevention o Moderate-High Intensity Statin Arthropathy of facet joint 06/21/2021 0 05/20/2022 [...] as of this encounter (statuses as of 07/25/2024) Immunizations Name Administration Dates Next Due COVID-19 mRNA, LNP-s, No Pre serve, 2-Dose Series (Labelby.me) 11/03/2021,12/19/2020,11/28/2020 Covid-19 Ad26, Single Dose (Planet Sushi/J&J) 12/19/2020,11/28/2020 DTaP Dipth/Tet/Acell Pertussis (Infanrix), Peds 10/24/2019 Pneumococcal Conjugate Vacc, 13 Valent (Prevnar) 04/27/2016 Pneumococcal Polysaccharide PPV23 (Pneumovax) 08/27/2009 Season Influenza, Quad, PF, Adjuvanted, 65+ Yrs, IM (FLUAD) 07/07/2020 Seasonal Influenza Vac., MDV , IM, 0.5 mL (Fluzone) 08/23/2016,07/03/2015,07/14/2014,06/23,07/13/2012,07/15/2011,07/27/20 10,07/02/2009,09/03/2008,08/28/2007,1 10/28/2005,09/07/2005 07/06/2014 Seasonal Influenza Virus Vac cine, Unspecified Formulation 07/07/2020,07/31/2019,07/04/2018,01/2017,08/23/2016,07/25/2016,07/03/20 15,07/14/2014,07/06/2013,07/13/2012,0 07/15/2011,07/27/2010,07/02/2009,09/03,08/28/2007,08/28/2006, 5 Seasonal Influenza, High Dos e, Trivalent, PF, IM (Fluzone HD) 07/06/2024 Seasonal Influenza, PF, 6 M & above, IM , (FluLaval or Fluzone) 07/31/2019,07/04/2018,07/26/2017 Seasonal Influenza, QUAD, wi th Preserv, 6 mons & Above, 0.5 mL, IM 07/23/2021,07/07/2020 Seasonal Influenza, Quadriva lent Hd (Fluzone Hd) 08/02/2023,07/13/2022 Seasonal Influenza, Quadriva lent, No Preserve, IM 07/25/2016 TD - Tetanus/Diptheria (ADULT) 05/27/1997 TD, Preservative [...] Telephone Encounter - Gonzales Chiu MD - 07/25/2024 10:43 AM EDT Noted. Will follow home visit. E * Telephone Encounter - Esperanza Plummer RN - 07/25/2024 10:13 AM EDT [facility] laser set up operator Acute Call Date: 07/25/2024 Time: 10:13 AM Name: Jesus Jose : 1945 Caller: Ashley Relationship to spouse No chief complaint on file. HPI: Jesus Jose is a 79 year old male that is calling [facility] to report multiple things going on with Richard. Ramirez reports he is on Vanco for C-diff and Keflex for 3 more days forBLE cellulitis that he was seen in [facility] last Thrusday. She reports his hands are very puffy/swollen, left hand is very sore and BLE's have increased swelling with new open sores on his left foot. nurse was there yesterday and did his dressing changes, three more opend up yesterday of his leftfoot. BP was elevated yesterday, no fever but has chills, states he is worn out. Complaining of lower back pain, takes tylenol but not effective. This morning still having diarrhea and reports being bloody this morning, had blood transfusion on Monday and iron transfusion last week. Was having abdominal pain yesterday but only slight ache to belly today. T-97.7. Has SOB only with exertion not at rest. nurse does wound care to BLE's three times weekly, refusing to go to the ED Unsure if he is having an allergic reaction to anything Nursing Assessment: Patient's chief complaint for this call: Edema Integumentary Pain Has pain Pain level: chronic back pain Location: back Quality of Pain: aching Does the pain radiate: No Baseline Assessment Able to performing ADLs at baseline (walking, daily tasks, etc.): Yes Chief Complaint is related to a chronic condition: Unknown Patient prescribed oxygen? No Patient has been ordered DME equipment (assistive devices, respiratory equipment, etc.): Unknown Medication Reconciliation: Received flu shot this season: Unknown Taking medication as ordered: Yes Medications ordered/taking to treat reason for call: No Heart failure symptoms: No COPD exacerbation symptoms: No Reinforcement Education: Routed to care team for recommendations Yonatan Rooney to see this morning Follow up call for tomorrow Treatment/Plan: Level of call: Urgent Appointment required within 4 hours (contact [facility] first call), provider available: Registered Nurse Chemistry Account Manager Provider Name: Yonatan Rooney Date/Time of Appointment: 07/25/24 Call back instructions provided to patient. NIKI Bower Registered Nurse Navigator Triage [facility] documented in this encounter Plan of Treatment Upcoming Encounters Date Type Department Care Team (Latest Contact Info) Description 07/26/2024 9:15 AM EDT Scheduled Telephone [facility], [facility] [address] [place] [address] Coordinator, [facility] [address] [place] [address] 08/01/2024 7:00 AM EDT [facility] Lab [facility] [address] [place] [address] [address] [facility] Draw [address] [place] [address] [address] 08/01/2024 3:00 PM EDT Home Visit [facility], [facility] [address] [place] [address] Berny Power PA-C [address] [place] [address] 08/15/2024 7:00 AM EDT [facility] [address] [place] [address] [address] [facility] Draw [address] [place] [address] [address] 08/29/2024 7:00 AM EST [facility] [address] [place] [address] [address] [facility] Draw [address] [place] [address] 08/29/2024 8:00 AM EST Hospital Encounter ENDO OSSC, Endoscopy Room [facility] [address] [place] [id number] Arnie Shrestha MD [address] [place] [address] 08/29/2024 8:00 AM EST - 08/29/2024 8:30 AM EST Surgery ENDO O[facility], Endoscopy Room [facility] [address] [place] [phone] Arnie Shrestha MD [address] [place] [address] COLONOSCOPY FLEXIBLE PROXIMAL DIAGNOSTIC 09/02/2024 1:45 PM EST [facility] [address] [facility] [place] [address] Osvaldo Liu MD [address] [facility] [place] [address] 09/12/2024 7:00 AM EST Laboratory [facility] [address] [place] [address] [facility] Draw [address] [facility] [place] [address] 09/17/2024 11:15 AM EST Office Visit Urology, [facility] [address] [facility] [place] [address] Kalpesh Funes MD [address] [place] [address] 09/26/2024 7:00 AM EST Laboratory Lab [facility] [address] [facility] [place] [address] [facility] Draw [address] [facility] [place] [address] 03/12/2025 3:30 PM EDT Home Visit Care at Home [address] [place] [address] Betina Jacob PA-C [address] [place] [address] Scheduled Procedures Name Priority Associated Diagnoses Date/Ti me COLONOSCOPY FLEXIBLE PROXIMAL DIAGNOSTIC Special screening for malignant neoplasms, colon 08/29/2024 8:00 AM EST Health Maintenance Due Date Last Done Comments Diabetic Foot Exam 03/27/2021 03/27/2020, 08/23/2018 Diabetic Eye Exam 11/01/2023 11/01/2022, , 11/01/2022, Additional history exists Albumin/Creatinine Ratio 12/27/2023 023, 03/08/2019, 04/09/2014 GFR 11/09/2024 05/09/2024, 03/24, 04/15/2024, Additional history exists HbA1c 11/23/2024 05/23/2024, 03/24, 12/26/2022, Additional history exists CKD PHOS USE SMARTSET 52322 12/07/202411/23, 12/26/2022, 06/21/2021 Adult Wellness Visit 03/06/2025 03/06/2024, 11/02/19 23 Depression Screening 03/07/2025 03/07/2024 CKD HGB USE SMARTSET 32375 07/04/202507/04, 07/04/2024, 06/20/2024, Additional history exists DTap/Tdap Vaccines (4 - Td or Tdap) 10/24/2029 10/24/2019, 10/24/2019, 11/03/2008, Additional history exists Pneumococcal Vaccine: 65+ Years Completed 04/27/2016, 08/27/2009 Zoster Vaccines Completed 10/24/2019, 11/2019, 07/31/2019, Additional history exists COVID-19 Vaccine Discontinued 11/03/2021, , 12/19/2020, Additional history exists Colonoscopy Discontinued 10/18/2023, 09/23, 09/12/2022, Additional history exists Influenza Vaccine (FLU shot) Completed 07/06/2024, 08/02/2023, 07/13/2022, Additional history exists HPV (Gardasil) Vaccine Aged Out No lo nger eligible based on patient's age to complete this topic Hepatitis B Vaccine Aged Out No longe r eligible based on patient's age to complete this topic MENINGOCOCCAL (MENACTRA/MENVEO) Aged Out No longer eligible based on patient's age to complete this topic documented as of this encounter Medical Devices Implanted Type Area Embryology Professor Device Identifier Shelf Expiration Date Model / Serial / Lot Lens Intraoc 22.5 - [id number] - [id number] Implanted:Qty: 1 on 05/22/2018 by Jasbir Maurer MD at OR [facility] Right: Eye [employer]USCH [employer] LOMB 11/22/2022 [id number] / [id number] / [id number] Lens Intraoc 21.0 - [id number] - [id number] Implanted:Qty: 1 on 06/05/2018 by Jasbir Maurer MD at OR [facility] Left: Eye BAUSCH & LOMB 12/20/2022 [id number] / [id number] / Duraclip 16mm Xlg Repostn - [id number] Implanted:Qty: 1 on 04/12/2024 by Edilberto Lujan MD at OR [facility] ERUCES [id number] 12/08/2024 [id number] / / [id number] Duraclip 16mm Xlg Repostn - [id number] Implanted:Qty: 1 on 04/12/2024 by Edilberto Lujan MD at OR [facility] Triptrotting NACHO [id number] 12/08/2024 [id number] / / [id number] Duraclip 16mm Xlg Repostn - [id number] Implanted:Qty: 1 on 04/12/2024 by Edilberto Lujan MD at OR [facility] ERUCES [id number] 12/08/2024 [id number] / / [id number] documented as of this encounter Additional Health Concerns Infection Onset Date Last Indicated Resolved Time C. difficile 06/14/2024 07/12/2024 documented as of this encounter Advance Directives [...] Agents on File Name Relationship Healthcare Agent [facility] p Communication Ashley Meek Jose Spouse Health Care Power of Attor mayela Care Teams Bead Inspector Relationship Specialty Start Date End Date Michael Hinton MD [address] [address] PCP - General Family Medicine 08/07/17 documented as of this encounter
--- OUTSIDE RECORDS SUMMARY | 2024-07-26 09:36 | External Medical Summary | Summary of Care ---
Author Name Unknown Organization [facility] Address [address] [place] [address] Phone [phone] Care Team Providers Care Globe Changer Name Role Phone Michael Hinton MD Primary Care Provider [phone] Reason for Visit * Reason Onset Date Comments [facility]: Acute 07/25/2024 Encounter Details Date Type Department Care Team (Late st Contact Info) Description 07/25/2024 Telephone [facility], [facility] [address] [facility] [place] [address] Esperanza Plummer RN [address] [facility] [place] [address] [facility]: Acute Allergies Active Allergy Reactions Criticality Noted Date Comments Fabiano Inhibitors Cough 06/09/2017 Carbidopa W-Levodopa 03/17/2021 Constipation Nsaids Rash 05/17/2018 Contraindicated per outside plant field engineer documented as of this encounter (statuses [...] regurgitation,Coron daniel artery disease involving [place] coronary artery of [place] heart without angina pectoris,Stage 3b chronic kidney [...] Coronary artery disease invo lving [place] coronary artery of [place] heart without angina pectoris 03/21/2018 Last Assessment [...] mRNA, LNP-s, No Pre serve, 2-Dose Series (Tapjoy) 11/03/2021,12/19/2020,11/28/2020 Covid-19 Ad26, Single Dose ([employer]J&J) 12/19/2020,11/28/2020 DTaP Dipth/Tet/Acell Pertussis (Infanrix), Peds 10/24/2019 [...] 07/25/2024 10:13 AM EDT [facility] paper roller Acute Call Date: 07/25/2024 Time: 10:13 AM [...] forBLE cellulitis that he was seen in [facility] last Thrusday. She reports his hands [...] Appointment required within 4 hours (contact [facility] first call), provider available: Registered Nurse Plastering Contractor Provider Name: Yonatan Rooney Date/Time of Appointment: 07/25/24 Call back instructions provided to patient. NIKI Bower Registered Nurse Navigator Triage [facility] documented in this encounter Plan of Treatment Upcoming Encounters Date Type Department Care Team (Latest Contact Info) Description 07/26/2024 9:15 AM EDT Scheduled Telephone [facility], [facility] [address] [place] [address] Coordinator, [facility] [address] [place] [address] 08/01/2024 7:00 AM EDT [facility] [address] [place] [address] [address] [facility] Draw [address] [place] [address] [address] 08/01/2024 3:00 PM EDT Home Visit [facility], [facility] [address] [place] [address] Berny Power PA-C [address] [place] [address] 08/15/2024 7:00 AM EDT [facility] [address] [place] [address] [facility] Draw [address] [place] [address] [address] 08/29/2024 7:00 AM EST [facility] [address] [place] [address] [facility] Draw [address] [place] [address] 08/29/2024 8:00 AM EST Hospital Encounter ENDO OSSC, Endoscopy Room [facility] [address] [place] [phone] Arnie Shrestha MD [address] [place] [address] 08/29/2024 8:00 AM EST - 08/29/2024 8:30 AM EST Surgery ENDO OSSC, Endoscopy Room [facility] [address] [place] [phone] Arnie Shrestha MD [address] [place] [address] COLONOSCOPY FLEXIBLE PROXIMAL DIAGNOSTIC 09/02/2024 1:45 PM EST [facility] [address] [facility] [place] [address] Osvaldo Liu MD [address] [facility] [place] [address] 09/12/2024 7:00 AM EST Laboratory Lab [facility] [address] [place] [address] [facility] Draw [address] [facility] [place] [address] 09/17/2024 11:15 AM EST Office Visit Urology, [facility] [address] [facility] [place] [address] Kalpesh Funes MD [address] [place] [address] 09/26/2024 7:00 AM EST Laboratory Lab [facility] [address] [facility] [place] [address] [facility], [facility] Draw [address] [facility] [place] [address] 03/12/2025 3:30 PM EDT Home Visit Care at Home [address] [place] [address] Betina Jacob PA-C [address] [place] [address] Scheduled Procedures Name Priority Associated Diagnoses Date/Ti [...] Additional history exists CKD PHOS USE SMARTSET 78027 12/07/202411/23, 12/26/2022, 06/21/2021 Adult Wellness Visit 03/06/2025 03/06/2024, 11/02/19 23 Depression Screening 03/07/2025 03/07/2024 CKD HGB USE SMARTSET 90573 07/04/202507/04, 07/04/2024, 06/20/2024, Additional history exists DTap/Tdap [...] this encounter Medical Devices Implanted Type Area Clinical Account Liaison Device Identifier Shelf Expiration Date Model / Serial / Lot Lens Intraoc 22.5 - [id number] - [id number] Implanted:Qty: 1 on 05/22/2018 by Jasbir Maurer MD at OR [facility] Right: Eye BAUSCH [employer] LOMB 11/22/2022 [id number] / [id number] / [id number] Lens Intraoc 21.0 - [id number] - [id number] Implanted:Qty: 1 on 06/05/2018 by Jasbir Maurer MD at OR [facility] Left: Eye BAUSCH & LOMB 12/20/2022 [id number] / [id number] / Duraclip 16mm Xlg Repostn - [id number] Implanted:Qty: 1 on 04/12/2024 by Edilberto Lujan MD at OR [facility] [email or web address] [id number] 12/08/2024 [id number] / / [id number] Duraclip 16mm Xlg Repostn - [id number] Implanted:Qty: 1 on 04/12/2024 by Edilberto Lujan MD at OR [facility] Ultrasound Medical Devices NACHO [id number] 12/08/2024 [id number] / / [id number] Duraclip 16mm Xlg Repostn - [id number] Implanted:Qty: 1 on 04/12/2024 by Edilberto Lujan MD at OR [facility] [email or web address] [id number] 12/08/2024 [id number] / / [id number] documented as of this encounter Additional Health [...] Agents on File Name Relationship Healthcare Agent [facility] p Communication Ashley Meek Jose Spouse Health Care Power of Attor mayela Care Teams Globe Changer Relationship Specialty Start Date End Date Michael Hinton MD [address] [address] PCP - General Family Medicine 08/07/17 documented as of this encounter
--- NOTE | 2024-07-26 10:44 | Gastrointestinal Consultation ---
Date of Consultation July 26, 2024 Assessment & Plan (1) Recurrent colitis due to Clostridium difficile: 79 year old male with history of coronary disease/CABG, CHF diastolic type, mitral and aortic regurgitation, paroxysmal atrial fibrillation, T2DM, CKD-3, BPH, chronic lower extremity stasis ulcers, dementia with Parkinson disease, HUNTER, small bowel AVMs, presenting to the ED for evaluation of rectal bleeding in the setting of a C.diff infection. C.diff infections 05/02/24, 06/14/24, 07/13/24 - All treated with Vancomycin - Consider transition from Vancomycin to a tapering course of Dificif - Dificid 200 mg twice daily for 10 days followed by 200 mg every other day for 20 days - May add Questran 2 g once daily as needed Report of rectal bleeding - Stools documented this AM as brown - Conservative measures - Trend H&H - Monitor and document GI output - Transfuse PRN per primary team - The report of BRBPR at home may be multifactorial, c.diff infection, hemorrhoids etc - He has history of small bowel AVMs, if there is any concern for active upper GI bleeding, consider transfer for Upper Device-Assisted Enteroscopy Thank you for allowing us to participate in the care of this patient. Please call with any acute changes, questions or concerns. Please see addendum below with additional recommendation from my supervising physician. I spent a total of 60 minutes on the date of service in review of patient's record, and previously obtained information in person and appropriate medical visit, discussion and education of plan, with patient and/or caregiver, placing orders for tests/referral/procedures as medically necessary and documentation of pertinent clinical information in patient's medical records for their visit today. Supervising Physician Co-Signing Physician Notes I examined the patient and reviewed patient's chart , laboratory data and imaging studies. I agree with with assessment and plan of care as suggested by advanced practice provider. Recurrent C. difficile infection. Continue with standard dose followed by the tapering dose of fidaxomicin. Could benefit from bezlotoxumab if available in the hospital. This can be administered together with antibiotic therapy. Candidate for Rebyota enema. This should be administered 24 to 72 hours after completion of antibiotics. History of Present Illness Reason for Consultation: hematochezia, 3rd episode of c.diff Requesting Physician: Heath Carter MD Attending Physician: Heath Carter MD History of Present Illness 79 year old male with history of coronary disease/CABG, CHF diastolic type, mi tral and aortic regurgitation, paroxysmal atrial fibrillation, T2DM, CKD-3, BPH, chronic lower extremity stasis ulcers, dementia with Parkinson disease, HUNTER, small bowel AVMs, presenting to the ED for evaluation of rectal bleeding. GI was asked to evaluated. He tells me he is having loose/liquid stools 1-2 times daily. He is not sure if there has been any black or bloody stools since admission. The bowel movements documented today was reported as "brown liquid." He denies abd pain. No nausea, vomiting. No fever, chills, CP, SOB. C.diff: negative gene 2021, negative gene 2022, positive toxin 05/02/24 --> Vancomycin for 10 days --> positive toxin 06/14/24 --> Vancomycin 7 days --> positive toxin 07/13/24 --> Vancomycin tapering course Upper Device-Assisted Enteroscopy without [id number]: - Three angioectasias in the ileum. Treated with argon plasma coagulation (APC). Clips (MR conditional) were placed. VCE 2023: bleeding AVM is small bowel EGD 2023: - Normal esophagus. - Small hiatal hernia. - Normal examined duodenum. - The examined portion of the jejunum was normal. - No specimens collected. EGD 2022: - Z-line regular, 38 cm from the incisors. - Normal esophagus. - Gastritis. Biopsied. There was a dusky appearance to the stomach in areas of the body, fundus, and cardia concerning for some ischemia. - Normal duodenal bulb, second portion of the duodenum and third portion of the duodenum. Colonoscopy 2022: - Hemorrhoids found on perianal exam. - Diverticulosis in the sigmoid colon. - Internal hemorrhoids. - The examined portion of the ileum was normal. - No specimens collected. Allergies Allergy/AdvReac Type Severity Reaction Status Date / Time NSAIDS (Non-Steroidal Allergy Intermediate Rash Verified 07/22/24 09:17 Anti-Inflamma YONATAN Inhibitors AdvReac Intermediate Cough Verified 07/22/24 09:17 carbidopa AdvReac Intermediate constipatio Verified 07/22/24 09:17 n levodopa AdvReac Intermediate constipatio Verified 07/22/24 09:17 n Home Medications Medication Instructions Recorded Confirmed Type amantadine HCl 100 mg capsule 100 mg PO QAM 05/22/20 07/25/24 History torsemide 20 mg tablet 20 mg PO QAM 11/28/22 07/25/24 History dutasteride 0.5 mg capsule 0.5 mg PO QAM 01/24/23 07/25/24 History donepezil 10 mg tablet 5 mg PO QAM 10/06/23 07/25/24 History atorvastatin 40 mg tablet 40 mg PO QAM 01/08/24 07/25/24 History escitalopram oxalate 20 mg tablet 20 mg PO QAM #90 tabs 02/09/24 07/25/24 Rx acetaminophen 500 mg tablet 1,000 mg PO Q8H PRN Pain 02/29/24 07/25/24 History betamethasone dipropionate 0.05 % 1 applic topical BID 02/29/24 07/25/24 History topical ointment vitamin B complex 1 cap PO DAILY 02/29/24 07/25/24 History doxycycline hyclate 100 mg capsule 100 mg PO BID #9 caps 05/07/24 07/25/24 Rx allopurinol 300 mg tablet 300 mg PO QAM 07/25/24 07/25/24 History metoprolol succinate 25 mg 25 mg PO BID 07/25/24 07/25/24 History tablet,extended release 24 hr Patient History Medical History GI bleed 09/2023 Anemia 09/2023 inpt at [facility] [place] Atrial fibrillation f/u KWABENA Fritz on hold due to anemia History of blood transfusion 10/06/23- was admitted at [facility] [place], low blood count, reason for upcoming procedure 03/24/23, "he's bleeding somewhere, has a low blood count, not sure where losing it from"; f/u [facility]. 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 History of pneumonia end of 01/2023, found in lt. 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 Parkinson's>no current issues Diastolic dysfunction Lower extremity edema HUNTER (iron deficiency anemia) Ambulatory dysfunction Seasonal allergies Thoracic aortic aneurysm sx in 2011, at [facility] [place] Lumbar spondylosis MUSTAFA (dyspnea on exertion) inh prn Coronary aneurysm (2011) Per cardio records CAD with CABG in 2011 (CHILDS to LAD and exclusion of RCA aneurysm Adverse reaction to anesthetic agent 2011 w/hip replacement>hallucinated for 3 days Orthostatic hypotension (07/2019) Peripheral arterial disease Recurrent cellulitis of lower extremity reason for daily cephalexin Anxiety CAD (coronary artery disease) history of CABG (CHILDS to LAD and exclusion of a right coronary artery aneurysm), 2011 at [facility] [place]. Surgical History History of carpal tunnel release of both wrists History of esophagogastroduodenoscopy (EGD) Hx of colonoscopy Hx of bilateral cataract extraction History of neck surgery [facility] w/Dr. 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 foot H/O eye surgery numerous when he was young Family History Unknown No problems noted. Father Hypertension, Onset Age: 40 at 40 Mother Hypertension COPD (chronic obstructive pulmonary disease) Diabetes Brother Allergies Asthma Denies family history of Prostate cancer Hearing loss No family history of adverse response to anesthesia No family history of bleeding disorder Heart disease Cancer Stroke Social History Smoking Status: Never smoker Tobacco Type: Cigars Second Hand Exposure: No; Do You Dip or Chew Tobacco: No; Tobacco Cessation Education Requested by Patient: No Hx Alcohol Use: No Hx Substance Use: No Preferred Language: Setswana Communication Ability: Effective Communication Ability Comment: Hard of hearing Mine Deputy Required: Yes Beliefs That Will Affect Care: None marital status: Current Living Situation: Spouse Current Living Situation Comment: Lives at home with spouse Feels Safe at Home: Yes Safety Concerns: Feels Safe At This Time Assistive Devices: Oxygen - at Night Review of Systems Review of Systems: All other findings negative except as noted in HPI. Physical Exam Constitutional: WD/WN, vitals as above Respiratory: normal respiratory effort, lungs clear to auscultation Cardiovascular: Rate/Rhythm: regular rate Gastrointestinal (Abdomen): normal bowel sounds, soft, nontender, no hepatosplenomegaly Skin: no rashes, warm and dry Results & Data Vital Signs (Past 12 Hours) Vital Signs Temp Pulse Pulse Resp BP Pulse Ox O2 Del Method 07/26/24 08:55 90 07/26/24 08:03 36.5 C 92 H 24 167/99 H 100 Nasal Cannula 07/26/24 07:28 Nasal Cannula 07/26/24 02:44 36.9 C 87 20 152/87 H 100 Nasal Cannula 07/25/24 22:51 36.5 C 103 H 20 156/84 H 95 Room Air 07/25/24 22:40 Nasal Cannula O2 Flow Rate 07/26/24 08:55 07/26/24 08:03 2 07/26/24 07:28 2 07/26/24 02:44 2 07/25/24 22:51 07/25/24 22:40 2 Laboratory Results 07/26/24 07/26/24 07/25/24 Range/Units 08:28 06:23 21:26 WBC 3.94 L (4.8-10.8) K/ul RBC 2.52 L (4.70-6.10) M/uL Hgb 8.3 L (14.0-18.0) g/dl Hct 26.1 L (42.0-52.0) % MCV 103.6 H (80.0-100.0) fL MCH 32.9 (25.0-34.0) pg MCHC 31.8 L (32.0-36.0) g/dL RDW Std Deviation 66.7 H (36.4-46.3) fL RDW Coeff of Anny 17.6 H (11.5-14.5) % Plt Count 162 (130-400) K/uL MPV 8.8 L (9.4-12.4) fL Immature Gran % (Auto) 2.0 % Neut % (Auto) 70.6 % Lymph % (Auto) 16.5 % [place] % (Auto) 9.1 % Eos % (Auto) 0.8 % Baso % (Auto) 1.0 % Neut # (Auto) 2.78 (1.40-6.50) K/uL Lymph # (Auto) 0.65 L (1.20-3.40) K/uL [place] # (Auto) 0.36 (0.11-0.59) K/uL Eos # (Auto) 0.03 (0.00-0.50) K/uL Baso # (Auto) 0.04 (0.00-0.20) K/uL Immature Gran # (Auto) 0.08 (0.01-0.20) K/uL Absolute Nucleated RBC (0.00-0.12) K/uL Nucleated RBC % (auto) % PT (9.0-12.0) Seconds INR (0.9-1.1) APTT (21-31) Seconds PTT Ratio Sodium 139 (136-145) mmol/L Potassium 4.5 (3.5-5.1) mmol/L Chloride 105 (98-107) mmol/L Carbon Dioxide 29 (21-32) mmol/L Anion Gap 5 (3-11) BUN 18 (6-23) mg/dl Creatinine 1.25 (0.6-1.4) mg/dl Est Cr Clr Drug Dosing 46.4 ml/min eGFR 58.21 BUN/Creatinine Ratio 14.4 (10-20) Glucose 128 H (70-99(Fasting)) mg/dl POC Glucose 127 H 152 H (70-99) mg/dl Estimat Average Glucose 108 mg/dl Hemoglobin A1c 5.4 (4.5-5.6) % Calcium 9.4 (8.6-10.3) mg/dl Iron 37 (35-175) mcg/dl Transferrin 209 (200-360) mg/dl Ferritin 230.0 (8-388) ng/ml Total Bilirubin (0.2-1.0) mg/dl AST (13-39) U/L ALT (7-52) U/L Alkaline Phosphatase (34-104) U/L Troponin I High Sens (0-20) pg/ml Total Protein (6.0-8.3) gm/dl Albumin (3.4-5.0) gm/dl Globulin (2.5-4.0) gm/dl Albumin/Globulin Ratio (0.9-2) Lipase 55 (11-82) U/L Vitamin B12 603 (180-914) pg/ml Folate 14.37 (>5.38) ng/ml Procalcitonin (0-0.5) ng/ml Urine Color Urine Appearance (Clear) Urine pH (4.5-7.5) Ur Specific [place] (1.000-1.030) Urine Protein (Negative) Urine Glucose (UA) (Negative) Urine Ketones (Negative) Urine Blood (Negative) Urine Nitrite (Negative) Urine Bilirubin (Negative) Urine Urobilinogen (Negative) Ur Leukocyte Esterase (Negative) Urine WBC (Auto) (0-5) /hpf Urine RBC (Auto) (0-2) /hpf U Hyaline Cast (Auto) (0-2) /lpf U Epithel Cells (Auto) (0-2) /hpf Urine Bacteria (Auto) (None Seen) 07/25/24 07/25/24 07/25/24 Range/Units 21:23 14:00 12:59 WBC 4.74 L (4.8-10.8) K/ul RBC 2.51 L (4.70-6.10) M/uL Hgb 8.1 L 8.1 L (14.0-18.0) g/dl Hct 25.3 L 26.7 L (42.0-52.0) % MCV 106.4 H (80.0-100.0) fL MCH 32.3 (25.0-34.0) pg MCHC 30.3 L (32.0-36.0) g/dL RDW Std Deviation 67.7 H (36.4-46.3) fL RDW Coeff of Anny 17.7 H (11.5-14.5) % Plt Count 184 (130-400) K/uL MPV 9.2 L (9.4-12.4) fL Immature Gran % (Auto) 1.7 % Neut % (Auto) 75.1 % Lymph % (Auto) 15.4 % [place] % (Auto) 7.4 % Eos % (Auto) 0.0 % Baso % (Auto) 0.4 % Neut # (Auto) 3.56 (1.40-6.50) K/uL Lymph # (Auto) 0.73 L (1.20-3.40) K/uL [place] # (Auto) 0.35 (0.11-0.59) K/uL Eos # (Auto) 0.00 (0.00-0.50) K/uL Baso # (Auto) 0.02 (0.00-0.20) K/uL Immature Gran # (Auto) 0.08 (0.01-0.20) K/uL Absolute Nucleated RBC 0.02 (0.00-0.12) K/uL Nucleated RBC % (auto) 0.4 % PT 11.1 (9.0-12.0) Seconds INR 1.0 (0.9-1.1) APTT 27 (21-31) Seconds PTT Ratio 1.0 Sodium 139 (136-145) mmol/L Potassium 4.8 (3.5-5.1) mmol/L Chloride 108 H (98-107) mmol/L Carbon Dioxide 25 (21-32) mmol/L Anion Gap 6 (3-11) BUN 20 (6-23) mg/dl Creatinine 1.24 (0.6-1.4) mg/dl Est Cr Clr Drug Dosing 47.3 ml/min eGFR 58.78 BUN/Creatinine Ratio 16.1 (10-20) Glucose 136 H (70-99(Fasting)) mg/dl POC Glucose (70-99) mg/dl Estimat Average Glucose mg/dl Hemoglobin A1c (4.5-5.6) % Calcium 9.7 (8.6-10.3) mg/dl Iron (35-175) mcg/dl Transferrin (200-360) mg/dl Ferritin (8-388) ng/ml Total Bilirubin 0.5 (0.2-1.0) mg/dl AST 22 (13-39) U/L ALT 34 (7-52) U/L Alkaline Phosphatase 140 H (34-104) U/L Troponin I High Sens 16.2 (0-20) pg/ml Total Protein 5.6 L (6.0-8.3) gm/dl Albumin 3.3 L (3.4-5.0) gm/dl Globulin 2.3 L (2.5-4.0) gm/dl Albumin/Globulin Ratio 1.4 (0.9-2) Lipase 161 H (11-82) U/L Vitamin B12 (180-914) pg/ml Folate (>5.38) ng/ml Procalcitonin 0.12 (0-0.5) ng/ml Urine Color Yellow Urine Appearance Clear (Clear) Urine pH 5.0 (4.5-7.5) Ur Specific [place] 1.016 (1.000-1.030) Urine Protein 2+ H (Negative) Urine Glucose (UA) Negative (Negative) Urine Ketones Negative (Negative) Urine Blood Negative (Negative) Urine Nitrite Negative (Negative) Urine Bilirubin Negative (Negative) Urine Urobilinogen Negative (Negative) Ur Leukocyte Esterase Negative (Negative) Urine WBC (Auto) 0-5 (0-5) /hpf Urine RBC (Auto) 0-2 (0-2) /hpf U Hyaline Cast (Auto) 0-2 (0-2) /lpf U Epithel Cells (Auto) 0-2 (0-2) /hpf Urine Bacteria (Auto) None Seen (None Seen) PG Care Time/CCT Total # of Minutes Spent Total Time Spent with Patient: Total time spent is greater than 50% in coordination of care (as documented) at patient's floor/unit and/or counseling patient: Coding Level of Care Code 63801 INT INP/OBS CARE Diagnoses Recurrent colitis due to Clostridium difficile A04.71
--- NOTE | 2024-07-26 12:42 | Cardiology Consultation ---
Date of Consultation July 26, 2024 Assessment & Plan (1) Atrial fibrillation with rapid ventricular response: (2) Paroxysmal A-fib: (3) Chronic heart failure with preserved ejection fraction (HFpEF): (4) Anemia: (5) Recurrent colitis due to Clostridium difficile: (6) Edema: (7) HTN (hypertension): Plan Patient is an 79-year-old male with complex history with past heart failure with preserved ejection fraction secondary to underlying valvular heart disease, paroxysmal atrial fibrillation. Not on anticoagulation due to recurrent bleeding issues Presented due to concerns with hematochezia per records Patient referred to evaluate signs and symptoms of heart failure Chest x-ray with mild increase in vascular markings otherwise limited signs of acute heart failure Has responded to IV diuretics Metoprolol succinate held on admission for uncertain cause and patient has lapsed into atrial fibrillation 1. Paroxysmal atrial fibrillation with atrial fibrillation currently after lapse in beta-augie therapy. Will resume metoprolol succinate 25 mg twice per day first dose now. Anticoagulation remains contraindicated 2. Chronic diastolic heart failure secondary to valvular heart disease. Received IV furosemide this morning. Would discontinue and resume prehospital torsemide 3. Hypertension: Review of current hospitalization and recent multiple hospitalizations demonstrates persistent hypertension. Will add topical nitrates acutely with 1/2 inch every 6 hours. Consider changing to oral oral on discharge for ongoing hypertension Contact with any additional questions History of Present Illness Reason for Consultation: Diastolic heart failure Requesting Physician: Dr. Roy Attending Physician: Heath Carter MD History of Present Illness Patient is a complex 79-year-old male with ongoing cardiac concerns 1. CAD, history of CABG (CHILDS to LAD and exclusion of a right coronary artery aneurysm), 2011 at [facility]. 2. Chronic diastolic CHF, NYHA class 3 3. Valvular heart disease with at least moderate mitral insufficiency and moderate aortic insufficiency 4. Paroxysmal atrial fibrillation-off anticoagulation due to bleeding concern 5. Prostatic hypertrophy 6. CKD 7. Parkinson's disease with related gait instability and dementia- follows with [facility] 8. Significant anemia- follows with [facility] heme, gets IV iron transfusions Patient extremely poor historian but sought ER evaluation per records for hematochezia and diarrhea. Prior history of C. difficile and recurrence Patient referred for additional cardiac evaluation with chest x-ray demonstrating mild plethora Patient denies any specific cardiac complaints Denies chest pain or shortness of breath. Unaware of tachypalpitations or dizziness Has chronic stasis edema issues and skin breakdown Complains of pain on right heel Metoprolol succinate held on admission presenting sinus with PACs now in atrial fibrillation overnight Allergies Allergy/AdvReac Type Severity Reaction Status Date / Time NSAIDS (Non-Steroidal Allergy Intermediate Rash Verified 07/22/24 09:17 Anti-Inflamma YONATAN Inhibitors AdvReac Intermediate Cough Verified 07/22/24 09:17 carbidopa AdvReac Intermediate constipatio Verified 07/22/24 09:17 n levodopa AdvReac Intermediate constipatio Verified 07/22/24 09:17 n Home Medications Medication Instructions Recorded Confirmed Type amantadine HCl 100 mg capsule 100 mg PO QAM 05/22/20 07/25/24 History torsemide 20 mg tablet 20 mg PO QAM 11/28/22 07/25/24 History dutasteride 0.5 mg capsule 0.5 mg PO QAM 01/24/23 07/25/24 History donepezil 10 mg tablet 5 mg PO QAM 10/06/23 07/25/24 History atorvastatin 40 mg tablet 40 mg PO QAM 01/08/24 07/25/24 History escitalopram oxalate 20 mg tablet 20 mg PO QAM #90 tabs 02/09/24 07/25/24 Rx acetaminophen 500 mg tablet 1,000 mg PO Q8H PRN Pain 02/29/24 07/25/24 History betamethasone dipropionate 0.05 % 1 applic topical BID 02/29/24 07/25/24 History topical ointment vitamin B complex 1 cap PO DAILY 02/29/24 07/25/24 History doxycycline hyclate 100 mg capsule 100 mg PO BID #9 caps 05/07/24 07/25/24 Rx allopurinol 300 mg tablet 300 mg PO QAM 07/25/24 07/25/24 History metoprolol succinate 25 mg 25 mg PO BID 07/25/24 07/25/24 History tablet,extended release 24 hr Patient History Medical History GI bleed 09/2023 Anemia 09/2023 inpt at [facility] Atrial fibrillation f/u KWABENA Fritz Elijordin on hold due to anemia History of blood transfusion 10/06/23- was admitted at [facility], low blood count, reason for upcoming procedure 03/24/23, "he's bleeding somewhere, has a low blood count, not sure where losing it from"; f/u Dr. 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 History of pneumonia end of 01/2023, found in lt. 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 Parkinson's>no current issues Diastolic dysfunction Lower extremity edema HUNTER (iron deficiency anemia) Ambulatory dysfunction Seasonal allergies Thoracic aortic aneurysm sx in 2011, at [facility] Lumbar spondylosis MUSTAFA (dyspnea on exertion) inh prn Coronary aneurysm (2011) Per cardio records CAD with CABG in 2011 (CHILDS to LAD and exclusion of RCA aneurysm Adverse reaction to anesthetic agent 2011 w/hip replacement>hallucinated for 3 days Orthostatic hypotension (07/2019) Peripheral arterial disease Recurrent cellulitis of lower extremity reason for daily cephalexin Anxiety CAD (coronary artery disease) history of CABG (CHILDS to LAD and exclusion of a right coronary artery aneurysm), 2011 at [facility]. Surgical History History of carpal tunnel release of both wrists History of esophagogastroduodenoscopy (EGD) Hx of colonoscopy Hx of bilateral cataract extraction History of neck surgery [facility] [place] w/Dr. 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 foot H/O eye surgery numerous when he was young Family History Unknown No problems noted. Father Hypertension, Onset Age: 40 at 40 Mother Hypertension COPD (chronic obstructive pulmonary disease) Diabetes Brother Allergies Asthma Denies family history of Prostate cancer Hearing loss No family history of adverse response to anesthesia No family history of bleeding disorder Heart disease Cancer Stroke Social History Smoking Status: Never smoker Tobacco Type: Cigars Second Hand Exposure: No; Do You Dip or Chew Tobacco: No; Tobacco Cessation Education Requested by Patient: No Hx Alcohol Use: No Hx Substance Use: No Preferred Language: Kosovan Communication Ability: Effective Communication Ability Comment: Hard of hearing Agency Service Coordinator Required: Yes Beliefs That Will Affect Care: None marital status: Current Living Situation: Spouse Current Living Situation Comment: Lives at home with spouse Feels Safe at Home: Yes Safety Concerns: Feels Safe At This Time Assistive Devices: Hearing Aid - Bilateral, Oxygen - at Night and Walker Review of Systems Review of Systems: Unobtainable due to cognitive status Physical Exam Constitutional: + ill appearing; no acute distress Eyes: PERRL, conjunctivae normal, anicteric sclerae Neck: trachea midline, no thyromegaly Respiratory: no respiratory distress and no labored breathing Auscultation: no rales and no wheezes Cardiovascular: Rate/Rhythm: + irregularly irregular Heart Sounds: normal S1, normal S2 and + murmur (Grade 2 or 6 systolic and diastolic murmur audible) Vessels: no JVD Extremities: + edema (Chronic stasis changes to both lower extremities mild edema of the hands) Gastrointestinal (Abdomen): normal bowel sounds, soft, nontender, no hepatosplenomegaly Results & Data Vital Signs (Past 12 Hours) Vital Signs Temp Pulse Pulse Resp BP Pulse Ox O2 Del Method 07/26/24 11:57 36.6 C 118 H 20 160/78 H 92 Room Air 07/26/24 08:55 90 07/26/24 08:03 36.5 C 92 H 24 167/99 H 100 Nasal Cannula 07/26/24 07:28 Nasal Cannula 07/26/24 02:44 36.9 C 87 20 152/87 H 100 Nasal Cannula O2 Flow Rate 07/26/24 11:57 07/26/24 08:55 07/26/24 08:03 2 07/26/24 07:28 2 07/26/24 02:44 2 Laboratory Results Laboratory Results - last 24 hr 07/25/24 07/25/24 07/25/24 12:59 14:00 21:23 WBC 4.74 L RBC 2.51 L Hgb 8.1 L 8.1 L Hct 26.7 L 25.3 L MCV 106.4 H MCH 32.3 MCHC 30.3 L RDW Std Deviation 67.7 H RDW Coeff of Anny 17.7 H Plt Count 184 MPV 9.2 L Immature Gran % (Auto) 1.7 Neut % (Auto) 75.1 Lymph % (Auto) 15.4 Bonner % (Auto) 7.4 Eos % (Auto) 0.0 Baso % (Auto) 0.4 Neut # (Auto) 3.56 Lymph # (Auto) 0.73 L Bonner # (Auto) 0.35 Eos # (Auto) 0.00 Baso # (Auto) 0.02 Immature Gran # (Auto) 0.08 Absolute Nucleated RBC 0.02 Nucleated RBC % (auto) 0.4 PT 11.1 INR 1.0 APTT 27 PTT Ratio 1.0 Sodium 139 Potassium 4.8 Chloride 108 H Carbon Dioxide 25 Anion Gap 6 BUN 20 Creatinine 1.24 Est Cr Clr Drug Dosing 47.3 eGFR 58.78 BUN/Creatinine Ratio 16.1 Glucose 136 H POC Glucose Estimat Average Glucose Hemoglobin A1c Calcium 9.7 Iron Transferrin Ferritin Total Bilirubin 0.5 AST 22 ALT 34 Alkaline Phosphatase 140 H Troponin I High Sens 16.2 Total Protein 5.6 L Albumin 3.3 L Globulin 2.3 L Albumin/Globulin Ratio 1.4 Lipase 161 H Vitamin B12 Folate Procalcitonin 0.12 Urine Color Yellow Urine Appearance Clear Urine pH 5.0 Ur Specific [place] 1.016 Urine Protein 2+ H Urine Glucose (UA) Negative Urine Ketones Negative Urine Blood Negative Urine Nitrite Negative Urine Bilirubin Negative Urine Urobilinogen Negative Ur Leukocyte Esterase Negative Urine WBC (Auto) 0-5 Urine RBC (Auto) 0-2 U Hyaline Cast (Auto) 0-2 U Epithel Cells (Auto) 0-2 Urine Bacteria (Auto) None Seen 07/25/24 07/26/24 07/26/24 21:26 06:23 08:28 WBC 3.94 L RBC 2.52 L Hgb 8.3 L Hct 26.1 L MCV 103.6 H MCH 32.9 MCHC 31.8 L RDW Std Deviation 66.7 H RDW Coeff of Anny 17.6 H Plt Count 162 MPV 8.8 L Immature Gran % (Auto) 2.0 Neut % (Auto) 70.6 Lymph % (Auto) 16.5 Bonner % (Auto) 9.1 Eos % (Auto) 0.8 Baso % (Auto) 1.0 Neut # (Auto) 2.78 Lymph # (Auto) 0.65 L Bonner # (Auto) 0.36 Eos # (Auto) 0.03 Baso # (Auto) 0.04 Immature Gran # (Auto) 0.08 Absolute Nucleated RBC Nucleated RBC % (auto) PT INR APTT PTT Ratio Sodium 139 Potassium 4.5 Chloride 105 Carbon Dioxide 29 Anion Gap 5 BUN 18 Creatinine 1.25 Est Cr Clr Drug Dosing 46.4 eGFR 58.21 BUN/Creatinine Ratio 14.4 Glucose 128 H POC Glucose 152 H 127 H Estimat Average Glucose 108 Hemoglobin A1c 5.4 Calcium 9.4 Iron 37 Transferrin 209 Ferritin 230.0 Total Bilirubin AST ALT Alkaline Phosphatase Troponin I High Sens Total Protein Albumin Globulin Albumin/Globulin Ratio Lipase 55 Vitamin B12 603 Folate 14.37 Procalcitonin Urine Color Urine Appearance Urine pH Ur Specific [place] Urine Protein Urine Glucose (UA) Urine Ketones Urine Blood Urine Nitrite Urine Bilirubin Urine Urobilinogen Ur Leukocyte Esterase Urine WBC (Auto) Urine RBC (Auto) U Hyaline Cast (Auto) U Epithel Cells (Auto) Urine Bacteria (Auto) (4) Anemia Anemia type: unspecified type Qualified Code(s): D64.9 - Anemia, unspecified (6) Edema Edema type: localized Qualified Code(s): R60.0 - Localized edema
[2024-07-26] MEDS: NITROGLYCERIN 2% OINTMENT 30GM TUBE EXT SCH (13:21)
--- NOTE | 2024-07-26 14:07 | Hospitalist Progress Note ---
Date of Service July 26, 2024 Assessment & Plan (1) Acute lower GI bleeding: (2) Recurrent colitis due to Clostridium difficile: (3) Acute exacerbation of chronic heart failure: (4) Edema of both legs: (5) Coronary artery disease: (6) Paroxysmal A-fib: (7) Dementia associated with Parkinson's disease: (8) Diabetes type 2, controlled: (9) CKD (chronic kidney disease) stage 3, GFR 30-59 ml/min: Plan: 79-year-old male with history of coronary disease/CABG, CHF diastolic type, mitral and aortic regurgitation, paroxysmal atrial fibrillation, diabetes type 2, CKD stage III, BPH, chronic lower extremity stasis ulcers, dementia with Parkinson disease, anemia of iron deficiency, presenting with bright red blood per rectum x 2 days. Hematochezia Likely secondary to recurrent C. difficile, third episode--C. difficile infections on 48/ and 07/13/2024 Hemoglobin 8.1, baseline is 9 Has chronic iron deficiency anemia, has received blood transfusion and IV iron last week Discontinue vancomycin, start fidaxomicin 200 mg p.o. twice daily Appreciate GI input and recommendationhas small bowel AVMs and if the bleeding continues and is of concern he should be transferred to tertiary care center for upper device assisted enteroscopy Advised to have Dificid 200 mg twice daily for 10 days followed by 20 mg every other day for 20 days Stool moved brown in color Denies any abdominal symptoms Acute on chronic congestive heart failure Moderate aortic and mitral regurgitation Diastolic type Usually on torsemide 20 g p.o. daily Start Lasix 40 mg IV daily Echocardiogram was recently done back in April 2024 Denies any signs and or symptoms of fluid overload or CHF Appreciate cardiology input and recommendation Chronic bilateral lower extremity edema with wounds Questionable cellulitis versus erythema secondary to chronic edema Hold antibiotics for now in light of recurrent C. difficile Check procalcitonin Wound care consulted Coronary disease/CABG Not on aspirin Continue Lipitor and metoprolol Paroxysmal atrial fibrillation Not on anticoagulation secondary to recurrent GI bleed per records Continue metoprolol Diabetes type 2 Usually on metformin Insulin sliding scale for now GERD Continue Protonix BPH Continue dutasteride CKD stage III Stable Parkinson with dementia Continue omeprazole, bupropion, ezetimibe CODE STATUS full code Admission and Anticipated Discharge Date Admission Date: July 25, 2024 Subjective 07/26/2024 The patient was seen and examined in medical telemetry unit He complains to have some abdominal discomfort and does not want to take any medicine in empty stomach Denies any chest pain and/or palpitation No shortness of breath at rest Review of Systems Review of Systems: All systems reviewed and are unremarkable except as noted below Physical Exam Physical Exam: Lying in bed without any acute distress Constitutional: well developed, well nourished, + ill appearing and average body habitus Eyes: PERRL, conjunctivae normal, anicteric sclerae ENMT: external ear and nose normal, oropharynx normal Neck: trachea midline, no thyromegaly Respiratory: no respiratory distress Auscultation: lungs clear to auscultation bilaterally Cardiovascular: Rate/Rhythm: regular rate and regular rhythm; not tachycardic Heart Sounds: normal S1 and normal S2; no murmur Extremities: + edema (Trace edema bilaterally with significant chronic skin changes and bilateral) Gastrointestinal (Abdomen): Inspection/Auscultation: normal bowel sounds; abdomen not distended Percussion/Palpation: abdomen soft; abdomen nontender Musculoskeletal: No acute arthritis involving any joint Skin: Chronic skin changes with significant bilateral leg wounds Neurologic: normal touch/pain/proprioception and moves all extremities; no focal motor deficits Lymphatic: no cervical or axillary lymphadenopathy Results & Data Results & Data Vital Signs (Past 12 Hours) Vital Signs Temp Pulse Pulse Resp BP Pulse Ox O2 Del Method 07/26/24 11:57 36.6 C 118 H 20 160/78 H 92 Room Air 07/26/24 08:55 90 07/26/24 08:03 36.5 C 92 H 24 167/99 H 100 Nasal Cannula 07/26/24 07:28 Nasal Cannula 07/26/24 02:44 36.9 C 87 20 152/87 H 100 Nasal Cannula O2 Flow Rate 07/26/24 11:57 07/26/24 08:55 07/26/24 08:03 2 07/26/24 07:28 2 07/26/24 02:44 2 Laboratory Results Short CBC 07/25/24 07/25/24 07/26/24 Range/Units 12:59 21:23 06:23 WBC 4.74 L 3.94 L (4.8-10.8) K/ul Hgb 8.1 L 8.1 L 8.3 L (14.0-18.0) g/dl Hct 26.7 L 25.3 L 26.1 L (42.0-52.0) % Plt Count 184 162 (130-400) K/uL BMP 07/25/24 07/26/24 12:59 06:23 Sodium 139 139 Potassium 4.8 4.5 Chloride 108 H 105 Carbon Dioxide 25 29 BUN 20 18 Creatinine 1.24 1.25 Glucose 136 H 128 H Calcium 9.7 9.4 Liver Function 07/25/24 Range/Units 12:59 Total Bilirubin 0.5 (0.2-1.0) mg/dl AST 22 (13-39) U/L ALT 34 (7-52) U/L Alkaline Phosphatase 140 H (34-104) U/L Albumin 3.3 L (3.4-5.0) gm/dl Urine 07/25/24 Range/Units 14:00 Urine Color Yellow Urine Appearance Clear (Clear) Urine pH 5.0 (4.5-7.5) Ur Specific [place] 1.016 (1.000-1.030) Urine Protein 2+ H (Negative) Urine Glucose (UA) Negative (Negative) Medications Administered Current Inpatient Medications Allopurinol (Allopurinol 300 Mg Tab) 300 mg PO [facility] Stop: 08/25/24 08:59 Last Admin: 07/26/24 08:14 Dose: 300 mg Amantadine HCl (Amantadine Hcl 100 Mg Capsule) [facility] Stop: 08/25/24 08:59 Last Admin: 07/26/24 08:14 Dose: 100 mg Atorvastatin Calcium (Atorvastatin 40 Mg Tab) 40 mg PO [facility] Stop: 08/25/24 08:59 Last Admin: 07/26/24 08:14 Dose: 40 mg Dextrose (Dextrose 50% 50 Ml Syringe) 25 - 50 ml IV UD PRN; Protocol PRN Reason: Hypoglycemia Protocol Stop: 08/24/24 20:57 Escitalopram Oxalate (Escitalopram Oxalate 20 Mg Tab) 20 mg PO [facility] Stop: 08/25/24 08:59 Last Admin: 07/26/24 08:14 Dose: 20 mg Fidaxomicin (Fidaxomicin 200 Mg Tab) [address] [facility] Stop: 08/04/24 20:57 Last Admin: 07/26/24 09:29 Dose: 200 mg Finasteride (Finasteride 5 Mg Tab) 5 mg PO QAM JEANETH Stop: 08/25/24 08:59 Last Admin: 07/26/24 08:14 Dose: 5 mg Furosemide (Furosemide 40 Mg/4 Ml Vial) 40 mg IV DAILY JEANETH Stop: 08/25/24 08:59 Last Admin: 07/26/24 08:14 Dose: 40 mg Glucagon (Glucagon For Inj 1 Mg Vial) 1 mg SQ UD PRN; Protocol PRN Reason: Hypoglycemia Protocol Stop: 08/24/24 20:57 Glucose (Glucose 40% Gel 15 Gm Tube) 15 - 30 gm PO UD PRN; Protocol PRN Reason: Hypoglycemia Protocol Stop: 08/24/24 20:57 Glucose (Glucose 10 Tab/Tube) 4 - 8 tab PO UD PRN; Protocol PRN Reason: Hypoglycemia Treatment Stop: 08/24/24 20:57 Insulin Aspart (Insulin Aspart Per Unit Charge) 0 units SC ACHS JEANETH Stop: 08/24/24 20:59 Last Admin: 07/26/24 13:09 Dose: 1 units Metoprolol Succinate (Metoprolol Succ 25mg Ext Rel Tab) 25 mg PO BID JEANETH Stop: 08/25/24 12:44 Miscellaneous (Carbohydrates For Hypoglycemia ) 15 - 30 gm PO UD PRN PRN Reason: Hypoglycemia Protocol Stop: 08/24/24 20:57 Nitroglycerin (Nitroglycerin 2% Ointment 30gm Tube) 0.5 inch EXT Q6H JEANETH Stop: 08/25/24 12:59 Last Admin: 07/26/24 13:21 Dose: 0.5 inch Vitamin B Complex (Vitamin B Complex Tab) 1 tab PO DAILY JEANETH Stop: 08/25/24 08:59 Last Admin: 07/26/24 08:14 Dose: 1 tab
[2024-07-26] MEDS: METOPROLOL SUCC 25MG EXT REL TAB PO SCH (14:11)
[2024-07-26] MEDS: METOPROLOL SUCC 25MG EXT REL TAB PO ONE (16:01)
[2024-07-26] MEDS: EUCERIN CR 120 GM JAR EXT SCH (20:17)
[2024-07-26] MEDS: METOPROLOL SUCC 50MG EXT REL TAB PO SCH (20:17)
[2024-07-27] MEDS: METOPROLOL SUCC 50MG EXT REL TAB PO STA (03:41)
[2024-07-27] MEDS: MAGNESIUM SULFATE / D5W 1 GM/100 ML BAG IV ONE (03:41)
[2024-07-27 06:02] LABS: Basophils # (auto) 0.04 K/uL (0.00-0.20); Eosinophils # (auto) 0.05 K/uL (0.00-0.50); Eosinophils % (auto) 1.2 %; Hematocrit (blood only) 25.5 % (42.0-52.0); Hemoglobin 7.8 g/dl (14.0-18.0); Immature Granulocytes # (auto) 0.05 K/uL (0.01-0.20); Immature Granulocytes % (auto) 1.2 %; Lymphocytes # (auto) 0.75 K/uL (1.20-3.40); Lymphocytes % (auto) 18.2 %; Mean Corpuscular Hemoglobin 32.1 pg (25.0-34.0); Mean Corpuscular Hgb Conc 30.6 g/dL (32.0-36.0); Mean Corpuscular Volume 104.9 fL (80.0-100.0); Mean Platelet Volume 8.6 fL (9.4-12.4); Monocytes # (auto) 0.39 K/uL (0.11-0.59); Monocytes % (auto) 9.5 %; Neutrophils # (auto) 2.83 K/uL (1.40-6.50); Neutrophils % (auto) 68.9 %; Platelet Count 148 K/uL (130-400); RDW Coefficient of Variation 17.2 % (11.5-14.5); Red Blood Count 2.43 M/uL (4.70-6.10); White Blood Count 4.11 K/ul (4.8-10.8)
[2024-07-27 06:18] LABS: BUN Creatinine Ratio 13.7 (10-20); Calcium 8.6 mg/dl (8.6-10.3); Creatinine Clr Calc Pharmacy 39.9 ml/min; Magnesium 2.1 mg/dl (1.7-2.4); Potassium 4.2 mmol/L (3.5-5.1)
[2024-07-27 06:28] LABS: Polychromasia 1+
--- NOTE | 2024-07-27 15:09 | Hospitalist Progress Note ---
Date of Service July 27, 2024 Assessment & Plan (1) Acute lower GI bleeding: (2) Recurrent colitis due to Clostridium difficile: (3) Acute exacerbation of chronic heart failure: (4) Edema of both legs: (5) Coronary artery disease: (6) Paroxysmal A-fib: (7) Dementia associated with Parkinson's disease: (8) Diabetes type 2, controlled: (9) CKD (chronic kidney disease) stage 3, GFR 30-59 ml/min: Plan: 79-year-old male with history of coronary disease/CABG, CHF diastolic type, mitral and aortic regurgitation, paroxysmal atrial fibrillation, diabetes type 2, CKD stage III, BPH, chronic lower extremity stasis ulcers, dementia with Parkinson disease, anemia of iron deficiency, presenting with bright red blood per rectum x 2 days. Atrial fibrillation with rapid ventricular response History of paroxysmal atrial fibrillation Not on anticoagulation secondary to recurrent GI bleed per records Continue metoprolol- missed initial dose in the hospital Appreciate cardiology input and recommendation No more RVR since yesterday and denies any cardiac symptoms Hematochezia Likely secondary to recurrent C. difficile, third episode--C. difficile infections on 48/ and 07/13/2024 Hemoglobin 8.1, baseline is 9 Has chronic iron deficiency anemia, has received blood transfusion and IV iron last week Discontinue vancomycin, start fidaxomicin 200 mg p.o. twice daily Appreciate GI input and recommendationhas small bowel AVMs and if the bleeding continues and is of concern he should be transferred to tertiary care center for upper device assisted enteroscopy Advised to have Dificid 200 mg twice daily for 10 days followed by 20 mg every other day for 20 days Stool moved brown in color Denies any abdominal symptoms No more hematochezia but is still having dark stool Denies any abdominal pain, distention, nausea and/or vomiting Acute on chronic congestive heart failure with preserved EF Moderate aortic and mitral regurgitation Usually on torsemide 20 g p.o. daily Start Lasix 40 mg IV daily Echocardiogram was recently done back in April 2024 Denies any signs and or symptoms of fluid overload or CHF Appreciate cardiology input and recommendation Chronic bilateral lower extremity edema with wounds Questionable cellulitis versus erythema secondary to chronic edema Hold antibiotics for now in light of recurrent C. difficile Check procalcitonin Wound care consulted- appreciate input and recommendation Legs are looking much better Coronary disease/CABG Not on aspirin Continue Lipitor and metoprolol Diabetes type 2 Usually on metformin Insulin sliding scale for now GERD Continue Protonix BPH Continue dutasteride CKD stage III Stable Parkinson with dementia Continue omeprazole, bupropion, ezetimibe CODE STATUS full code Admission and Anticipated Discharge Date Admission Date: July 25, 2024 Subjective 07/26/2024 The patient was seen and examined in medical telemetry unit He complains to have some abdominal discomfort and does not want to take any medicine in empty stomach Denies any chest pain and/or palpitation No shortness of breath at rest 07/27/2024 The patient was seen and examined in medical telemetry unit He has been feeling much better today and did not have any more episodes of tachycardia Denies any other significant symptoms Denies any other significant symptoms Review of Systems Review of Systems: All systems reviewed and are unremarkable except as noted below Physical Exam Physical Exam: Lying in bed without any acute distress Constitutional: well developed, well nourished, + ill appearing and average body habitus Eyes: PERRL, conjunctivae normal, anicteric sclerae ENMT: external ear and nose normal, oropharynx normal Neck: trachea midline, no thyromegaly Respiratory: no respiratory distress Auscultation: lungs clear to auscultation bilaterally Cardiovascular: Rate/Rhythm: regular rate and regular rhythm; not tachycardic Heart Sounds: normal S1 and normal S2; no murmur Extremities: + edema (Trace edema bilaterally with significant chronic skin changes and bilateral) Gastrointestinal (Abdomen): Inspection/Auscultation: normal bowel sounds; abdomen not distended Percussion/Palpation: abdomen soft; abdomen nontender Neurologic: normal touch/pain/proprioception and moves all extremities; no focal motor deficits Lymphatic: no cervical or axillary lymphadenopathy Results & Data Results & Data Vital Signs (Past 12 Hours) Vital Signs Temp Pulse Pulse Resp BP Pulse Ox O2 Del Method 07/27/24 14:42 72 07/27/24 11:32 36.4 C L 67 18 120/67 95 Room Air 07/27/24 08:33 81 07/27/24 08:21 37.1 C 70 16 114/60 92 Room Air 07/27/24 07:19 Nasal Cannula O2 Flow Rate 07/27/24 14:42 07/27/24 11:32 07/27/24 08:33 07/27/24 08:21 07/27/24 07:19 2 Laboratory Results Short CBC 07/27/24 Range/Units 05:40 WBC 4.11 L (4.8-10.8) K/ul Hgb 7.8 L (14.0-18.0) g/dl Hct 25.5 L (42.0-52.0) % Plt Count 148 (130-400) K/uL BMP 07/27/24 05:40 Sodium 140 Potassium 4.2 Chloride 104 Carbon Dioxide 31 BUN 20 Creatinine 1.46 H Glucose 192 H Calcium 8.6 Medications Administered Current Inpatient Medications [facility]urin[facility] ([facility] 300 Mg Tab) [facility] Stop: 08/25/24 08:59 Last Admin: 07/27/24 08:16 Dose: 300 mg Amantadine HCl (Amantadine Hcl 100 Mg Capsule) 100 mg PO [facility] Stop: 08/25/24 08:59 Last Admin: 07/27/24 08:16 Dose: 100 mg Atorvastatin Calcium (Atorvastatin 40 Mg Tab) 40 mg PO [facility] Stop: 08/25/24 08:59 Last Admin: 07/27/24 08:16 Dose: 40 mg Dextrose (Dextrose 50% 50 Ml Syringe) 25 - 50 ml IV UD PRN; Protocol PRN Reason: Hypoglycemia Protocol Stop: 08/24/24 20:57 Escitalopram Oxalate (Escitalopram Oxalate 20 Mg Tab) 20 mg PO [facility] Stop: 08/25/24 08:59 Last Admin: 07/27/24 08:16 Dose: 20 mg Fidaxomicin (Fidaxomicin 200 Mg Tab) 200 mg PO BID [facility] Stop: 08/04/24 20:57 Last Admin: 07/27/24 08:16 Dose: 200 mg Finasteride (Finasteride 5 Mg Tab) 5 mg PO [facility] Stop: 08/25/24 08:59 Last Admin: 07/27/24 08:16 Dose: 5 mg Glucagon (Glucagon For Inj 1 Mg Vial) 1 mg SQ UD PRN; Protocol PRN Reason: Hypoglycemia Protocol Stop: 08/24/24 20:57 Glucose (Glucose 40% Gel 15 Gm Tube) 15 - 30 gm PO UD PRN; Protocol PRN Reason: Hypoglycemia Protocol Stop: 08/24/24 20:57 Glucose (Glucose 10 Tab/Tube) 4 - 8 tab PO UD PRN; Protocol PRN Reason: Hypoglycemia Treatment Stop: 08/24/24 20:57 Insulin Aspart (Insulin Aspart Per Unit Charge) 0 units SC ACHS [facility] Stop: 08/24/24 20:59 Last Admin: 07/27/24 13:09 Dose: 1 units Metoprolol Succinate (Metoprolol Succ 50mg Ext Rel Tab) 50 mg PO BID [facility] Stop: 08/26/24 20:59 Miscellaneous (Carbohydrates For Hypoglycemia ) 15 - 30 gm PO UD PRN PRN Reason: Hypoglycemia Protocol Stop: 08/24/24 20:57 Multi-Ingredient Cream (Eucerin Cr 120 Gm Jar) 1 appln EXT BID [facility] Stop: 08/25/24 20:59 Last Admin: 07/27/24 08:16 Dose: 1 appln Vitamin B Complex (Vitamin B Complex Tab) 1 tab PO DAILY [facility] Stop: 08/25/24 08:59 Last Admin: 07/27/24 08:17 Dose: 1 tab
[2024-07-27] MEDS: METOPROLOL SUCC 50MG EXT REL TAB PO SCH (20:48)
[2024-07-28 07:02] LABS: BUN Creatinine Ratio 14.7 (10-20); Calcium 8.3 mg/dl (8.6-10.3); Creatinine Clr Calc Pharmacy 38.8 ml/min; Magnesium 1.9 mg/dl (1.7-2.4); Phosphorus 4.9 mg/dl (2.5-4.9); Potassium 4.2 mmol/L (3.5-5.1)
--- NOTE | 2024-07-28 13:32 | Hospitalist Progress Note ---
Date of Service July 28, 2024 Assessment & Plan (1) Acute lower GI bleeding: (2) Recurrent colitis due to Clostridium difficile: (3) Acute exacerbation of chronic heart failure: (4) Edema of both legs: (5) Coronary artery disease: (6) Paroxysmal A-fib: (7) Dementia associated with Parkinson's disease: (8) Diabetes type 2, controlled: (9) CKD (chronic kidney disease) stage 3, GFR 30-59 ml/min: Plan: 79-year-old male with history of coronary disease/CABG, CHF diastolic type, mitral and aortic regurgitation, paroxysmal atrial fibrillation, diabetes type 2, CKD stage III, BPH, chronic lower extremity stasis ulcers, dementia with Parkinson disease, anemia of iron deficiency, presenting with bright red blood per rectum x 2 days. Atrial fibrillation with rapid ventricular response History of paroxysmal atrial fibrillation Not on anticoagulation secondary to recurrent GI bleed per records Continue metoprolol- missed initial dose in the hospital Appreciate cardiology input and recommendation No more RVR since yesterday and denies any cardiac symptoms Heart rate is controlled denies any cardiac symptoms Has been getting metoprolol succinate 50 mg twice daily Hematochezia Likely secondary to recurrent C. difficile, third episode--C. difficile infections on 48/ and 07/13/2024 Hemoglobin 8.1, baseline is 9 Has chronic iron deficiency anemia, has received blood transfusion and IV iron last week Discontinue vancomycin, start fidaxomicin 200 mg p.o. twice daily Appreciate GI input and recommendationhas small bowel AVMs and if the bleeding continues and is of concern he should be transferred to tertiary care center for upper device assisted enteroscopy Advised to have Dificid 200 mg twice daily for 10 days followed by 20 mg every other day for 20 days Stool moved brown in color Denies any abdominal symptoms No more hematochezia but is still having dark stool Denies any more bleeding per rectum Acute on chronic congestive heart failure with preserved EF Moderate aortic and mitral regurgitation Usually on torsemide 20 g p.o. daily Start Lasix 40 mg IV daily Echocardiogram was recently done back in April 2024 Denies any signs and or symptoms of fluid overload or CHF Appreciate cardiology input and recommendation Will get outpatient dose of torsemide on discharge Chronic bilateral lower extremity edema with wounds Questionable cellulitis versus erythema secondary to chronic edema Hold antibiotics for now in light of recurrent C. difficile Check procalcitonin Wound care consulted- appreciate input and recommendation Legs are looking much better Coronary disease/CABG Not on aspirin Continue Lipitor and metoprolol Diabetes type 2 Usually on metformin Insulin sliding scale for now GERD Continue Protonix BPH Continue dutasteride CKD stage III Stable Parkinson with dementia Continue omeprazole, bupropion, ezetimibe CODE STATUS full code Admission and Anticipated Discharge Date Admission Date: July 25, 2024 Subjective 07/26/2024 The patient was seen and examined in medical telemetry unit He complains to have some abdominal discomfort and does not want to take any medicine in empty stomach Denies any chest pain and/or palpitation No shortness of breath at rest 07/27/2024 The patient was seen and examined in medical telemetry unit He has been feeling much better today and did not have any more episodes of tachycardia Denies any other significant symptoms Denies any other significant symptoms 07/28/2024 The patient was seen and examined in medical telemetry unit He has been feeling much better and wants to have regular food Denies any chest pain, shortness of breath or palpitation Denies any other significant symptoms Review of Systems Review of Systems: All systems reviewed and are unremarkable except as noted below Physical Exam Physical Exam: Lying in bed without any acute distress Constitutional: well developed, well nourished, + ill appearing and average body habitus Eyes: PERRL, conjunctivae normal, anicteric sclerae ENMT: external ear and nose normal, oropharynx normal Neck: trachea midline, no thyromegaly Respiratory: no respiratory distress Auscultation: lungs clear to auscultation bilaterally Cardiovascular: Rate/Rhythm: regular rate and regular rhythm; not tachycardic Heart Sounds: normal S1 and normal S2; no murmur Extremities: + edema (Trace edema bilaterally with significant chronic skin changes and bilateral) Gastrointestinal (Abdomen): Inspection/Auscultation: normal bowel sounds; abdomen not distended Percussion/Palpation: abdomen soft; abdomen nontender Skin: legs are much better bilaterally without any evidence of open wound Neurologic: normal touch/pain/proprioception and moves all extremities; no focal motor deficits Lymphatic: no cervical or axillary lymphadenopathy Results & Data Results & Data Vital Signs (Past 12 Hours) Vital Signs Temp Pulse Pulse Resp BP Pulse Ox O2 Del Method 07/28/24 11:29 36.4 C L 98 H 18 120/70 94 Room Air 07/28/24 08:09 36.5 C 72 18 119/70 95 Room Air 07/28/24 07:22 68 07/28/24 07:13 Room Air Laboratory Results BMP 07/28/24 05:38 Sodium 141 Potassium 4.2 Chloride 105 Carbon Dioxide 30 BUN 22 Creatinine 1.50 H Glucose 86 Calcium 8.3 L Medications Administered Current Inpatient Medications Allopurinol ([facility]op[facility] 300 Mg Tab) [facility] Stop: 08/25/24 08:59 Last Admin: 07/28/24 08:18 Dose: 300 mg Amantadine HCl (Amantadine Hcl 100 Mg Capsule) [facility] Stop: 08/25/24 08:59 Last Admin: 07/28/24 08:18 Dose: 100 mg Atorvastatin Calcium (Atorvastatin 40 Mg Tab) [facility] Stop: 08/25/24 08:59 Last Admin: 07/28/24 08:18 Dose: 40 mg Dextrose (Dextrose 50% 50 Ml Syringe) 25 - 50 ml IV UD PRN; Protocol PRN Reason: Hypoglycemia Protocol Stop: 08/24/24 20:57 Escitalopram Oxalate (Escitalopram Oxalate 20 Mg Tab) [facility] Stop: 08/25/24 08:59 Last Admin: 07/28/24 08:18 Dose: 20 mg Fidaxomicin (Fidaxomicin 200 Mg Tab) 200 mg PO BID [facility] Stop: 08/04/24 20:57 Last Admin: 07/28/24 08:18 Dose: 200 mg Finasteride (Finasteride 5 Mg Tab) [facility] Stop: 08/25/24 08:59 Last Admin: 07/28/24 08:18 Dose: 5 mg Glucagon (Glucagon For Inj 1 Mg Vial) 1 mg SQ UD PRN; Protocol PRN Reason: Hypoglycemia Protocol Stop: 08/24/24 20:57 Glucose (Glucose 40% Gel 15 Gm Tube) 15 - 30 gm PO UD PRN; Protocol PRN Reason: Hypoglycemia Protocol Stop: 08/24/24 20:57 Glucose (Glucose 10 Tab/Tube) 4 - 8 tab PO UD PRN; Protocol PRN Reason: Hypoglycemia Treatment Stop: 08/24/24 20:57 Insulin Aspart (Insulin Aspart Per Unit Charge) 0 units SC [facility] Stop: 08/24/24 20:59 Last Admin: 07/28/24 12:59 Dose: 3 units Metoprolol Succinate (Metoprolol Succ 50mg Ext Rel Tab) 50 mg PO BID [facility] Stop: 08/26/24 20:59 Last Admin: 07/28/24 08:19 Dose: 50 mg Miscellaneous (Carbohydrates For Hypoglycemia ) 15 - 30 gm PO UD PRN PRN Reason: Hypoglycemia Protocol Stop: 08/24/24 20:57 Multi-Ingredient Cream (Eucerin Cr 120 Gm Jar) 1 appln EXT BID [facility] Stop: 08/25/24 20:59 Last Admin: 07/28/24 08:19 Dose: 1 appln Vitamin B Complex (Vitamin B Complex Tab) 1 tab PO DAILY [facility] Stop: 08/25/24 08:59 Last Admin: 07/28/24 08:19 Dose: 1 tab
--- NOTE | 2024-07-28 14:45 | Hospitalist Progress Note ---
Date of Service July 28, 2024 Assessment & Plan (1) Acute lower GI bleeding: (2) Recurrent colitis due to Clostridium difficile: (3) Acute exacerbation of chronic heart failure: (4) Edema of both legs: (5) Coronary artery disease: (6) Paroxysmal A-fib: (7) Dementia associated with Parkinson's disease: (8) Diabetes type 2, controlled: (9) CKD (chronic kidney disease) stage 3, GFR 30-59 ml/min: Plan: 79-year-old male with history of coronary disease/CABG, CHF diastolic type, mitral and aortic regurgitation, paroxysmal atrial fibrillation, diabetes type 2, CKD stage III, BPH, chronic lower extremity stasis ulcers, dementia with Parkinson disease, anemia of iron deficiency, presenting with bright red blood per rectum x 2 days. Atrial fibrillation with rapid ventricular response History of paroxysmal atrial fibrillation Not on anticoagulation secondary to recurrent GI bleed per records Continue metoprolol- missed initial dose in the hospital Appreciate cardiology input and recommendation No more RVR since yesterday and denies any cardiac symptoms Heart rate is controlled denies any cardiac symptoms Has been getting metoprolol succinate 50 mg twice daily Hematochezia Likely secondary to recurrent C. difficile, third episode--C. difficile infections on 48/ and 07/13/2024 Hemoglobin 8.1, baseline is 9 Has chronic iron deficiency anemia, has received blood transfusion and IV iron last week Discontinue vancomycin, start fidaxomicin 200 mg p.o. twice daily Appreciate GI input and recommendationhas small bowel AVMs and if the bleeding continues and is of concern he should be transferred to tertiary care center for upper device assisted enteroscopy Advised to have Dificid 200 mg twice daily for 10 days followed by 20 mg every other day for 20 days Stool moved brown in color Denies any abdominal symptoms No more hematochezia but is still having dark stool Denies any more bleeding per rectum Acute on chronic congestive heart failure with preserved EF Moderate aortic and mitral regurgitation Usually on torsemide 20 g p.o. daily Start Lasix 40 mg IV daily Echocardiogram was recently done back in April 2024 Denies any signs and or symptoms of fluid overload or CHF Appreciate cardiology input and recommendation Will get outpatient dose of torsemide on discharge Chronic bilateral lower extremity edema with wounds Questionable cellulitis versus erythema secondary to chronic edema Hold antibiotics for now in light of recurrent C. difficile Check procalcitonin Wound care consulted- appreciate input and recommendation Legs are looking much better Coronary disease/CABG Not on aspirin Continue Lipitor and metoprolol Diabetes type 2 Usually on metformin Insulin sliding scale for now GERD Continue Protonix BPH Continue dutasteride CKD stage III Stable Parkinson with dementia Continue omeprazole, bupropion, ezetimibe CODE STATUS full code Admission and Anticipated Discharge Date Admission Date: July 25, 2024 Subjective 07/26/2024 The patient was seen and examined in medical telemetry unit He complains to have some abdominal discomfort and does not want to take any medicine in empty stomach Denies any chest pain and/or palpitation No shortness of breath at rest 07/27/2024 The patient was seen and examined in medical telemetry unit He has been feeling much better today and did not have any more episodes of tachycardia Denies any other significant symptoms Denies any other significant symptoms 07/28/2024 The patient was seen and examined in medical telemetry unit He has been feeling much better and wants to have regular food Denies any chest pain, shortness of breath or palpitation Denies any other significant symptoms Review of Systems Review of Systems: All systems reviewed and are unremarkable except as noted below Physical Exam Physical Exam: Sitting on a chair without any acute distress Constitutional: well developed, well nourished, + ill appearing and average body habitus Eyes: PERRL, conjunctivae normal, anicteric sclerae ENMT: external ear and nose normal, oropharynx normal Neck: trachea midline, no thyromegaly Respiratory: no respiratory distress Auscultation: lungs clear to auscultation bilaterally Cardiovascular: Rate/Rhythm: regular rate and regular rhythm; not tachycardic Heart Sounds: normal S1 and normal S2; no murmur Extremities: + edema (Trace edema bilaterally with significant chronic skin changes and bilateral) Gastrointestinal (Abdomen): Inspection/Auscultation: normal bowel sounds; abdomen not distended Percussion/Palpation: abdomen soft; abdomen nontender Neurologic: normal touch/pain/proprioception and moves all extremities; no focal motor deficits Lymphatic: no cervical or axillary lymphadenopathy Results & Data Results & Data Vital Signs (Past 12 Hours) Vital Signs Temp Pulse Pulse Resp BP Pulse Ox O2 Del Method 07/28/24 11:29 36.4 C L 98 H 18 120/70 94 Room Air 07/28/24 08:09 36.5 C 72 18 119/70 95 Room Air 07/28/24 07:22 68 07/28/24 07:13 Room Air Laboratory Results BMP 07/28/24 05:38 Sodium 141 Potassium 4.2 Chloride 105 Carbon Dioxide 30 BUN 22 Creatinine 1.50 H Glucose 86 Calcium 8.3 L Medications Administered Current Inpatient Medications [facility]urin[facility] ([facility] 300 Mg Tab) [facility]: 08/25/24 08:59 Last Admin: 07/28/24 08:18 Dose: 300 mg Amantadine HCl (Amantadine Hcl 100 Mg Capsule) [facility]: 08/25/24 08:59 Last Admin: 07/28/24 08:18 Dose: 100 mg Atorvastatin Calcium (Atorvastatin 40 Mg Tab) 40 mg PO [facility] Stop: 08/25/24 08:59 Last Admin: 07/28/24 08:18 Dose: 40 mg Dextrose (Dextrose 50% 50 Ml Syringe) 25 - 50 ml IV UD PRN; Protocol PRN Reason: Hypoglycemia Protocol Stop: 08/24/24 20:57 Escitalopram Oxalate (Escitalopram Oxalate 20 Mg Tab) 20 mg PO [facility] Stop: 08/25/24 08:59 Last Admin: 07/28/24 08:18 Dose: 20 mg Fidaxomicin (Fidaxomicin 200 Mg Tab) 200 mg PO BID [facility] Stop: 08/04/24 20:57 Last Admin: 07/28/24 08:18 Dose: 200 mg Finasteride (Finasteride 5 Mg Tab) 5 mg PO [facility] Stop: 08/25/24 08:59 Last Admin: 07/28/24 08:18 Dose: 5 mg Glucagon (Glucagon For Inj 1 Mg Vial) 1 mg SQ UD PRN; Protocol PRN Reason: Hypoglycemia Protocol Stop: 08/24/24 20:57 Glucose (Glucose 40% Gel 15 Gm Tube) 15 - 30 gm PO UD PRN; Protocol PRN Reason: Hypoglycemia Protocol Stop: 08/24/24 20:57 Glucose (Glucose 10 Tab/Tube) 4 - 8 tab PO UD PRN; Protocol PRN Reason: Hypoglycemia Treatment Stop: 08/24/24 20:57 Insulin Aspart (Insulin Aspart Per Unit Charge) 0 units SC ACHS [facility] Stop: 08/24/24 20:59 Last Admin: 07/28/24 12:59 Dose: 3 units Metoprolol Succinate (Metoprolol Succ 50mg Ext Rel Tab) 50 mg PO BID [facility] Stop: 08/26/24 20:59 Last Admin: 07/28/24 08:19 Dose: 50 mg Miscellaneous (Carbohydrates For Hypoglycemia ) 15 - 30 gm PO UD PRN PRN Reason: Hypoglycemia Protocol Stop: 08/24/24 20:57 Multi-Ingredient Cream (Eucerin Cr 120 Gm Jar) 1 appln EXT BID [facility] Stop: 08/25/24 20:59 Last Admin: 07/28/24 08:19 Dose: 1 appln Torsemide (Torsemide 20 Mg Tab) 20 mg PO QAM [facility] Stop: 08/28/24 08:59 Vitamin B Complex (Vitamin B Complex Tab) 1 tab PO DAILY [facility] Stop: 08/25/24 08:59 Last Admin: 07/28/24 08:19 Dose: 1 tab
[2024-07-29 06:35] LABS: Basophils # (auto) 0.02 K/uL (0.00-0.20); Basophils % (auto) 0.4 %; Eosinophils # (auto) 0.02 K/uL (0.00-0.50); Eosinophils % (auto) 0.4 %; Hematocrit (blood only) 25.2 % (42.0-52.0); Hemoglobin 7.8 g/dl (14.0-18.0); Immature Granulocytes # (auto) 0.04 K/uL (0.01-0.20); Immature Granulocytes % (auto) 0.8 %; Lymphocytes # (auto) 0.72 K/uL (1.20-3.40); Lymphocytes % (auto) 14.9 %; Mean Corpuscular Hemoglobin 32.6 pg (25.0-34.0); Mean Corpuscular Volume 105.4 fL (80.0-100.0); Mean Platelet Volume 9.3 fL (9.4-12.4); Monocytes # (auto) 0.49 K/uL (0.11-0.59); Monocytes % (auto) 10.1 %; Neutrophils # (auto) 3.55 K/uL (1.40-6.50); Neutrophils % (auto) 73.4 %; Platelet Count 130 K/uL (130-400); RDW Coefficient of Variation 16.8 % (11.5-14.5); RDW Standard Deviation 65.2 fL (36.4-46.3); Red Blood Count 2.39 M/uL (4.70-6.10); White Blood Count 4.84 K/ul (4.8-10.8)
[2024-07-29 06:58] LABS: BUN Creatinine Ratio 14.8 (10-20); Calcium 8.2 mg/dl (8.6-10.3); Creatinine Clr Calc Pharmacy 31.8 ml/min; Potassium 3.9 mmol/L (3.5-5.1)
[2024-07-29 07:02] LABS: Macrocytosis Present; Ovalocytes 1+; Polychromasia 1+
[2024-07-29] MEDS: TORSEMIDE 20 MG TAB PO SCH (09:00)
--- NOTE | 2024-07-29 15:15 | Hospitalist Progress Note ---
Date of Service July 29, 2024 Assessment & Plan (1) Acute lower GI bleeding: (2) Recurrent colitis due to Clostridium difficile: (3) Acute exacerbation of chronic heart failure: (4) Coronary artery disease: (5) Paroxysmal A-fib: (6) Dementia associated with Parkinson's disease: (7) Diabetes type 2, controlled: (8) CKD (chronic kidney disease) stage 3, GFR 30-59 ml/min: Plan Patient's hemoglobin has remained stable over the last few days. Component of chronic anemia due to renal failure as well as blood loss anemia. Continue to monitor hemoglobin as needed patient seems to be responding to the Dificid treatment. Reviewed GI recommendation for prolonged taper of Dificid Case management working on prior authorization of Dificid Patient's renal function essentially at his baseline historically. Continue his usual diuretics, weight has been stable, can output even Therapy evaluation Case management pursuing possible rehab placement pending therapy evaluation Phone update to patient's . She is concerned about taking care of him at home and requesting short-term rehab. Admission and Anticipated Discharge Date Admission Date: July 25, 2024 Subjective No acute events overnight, no reported rectal bleeding. Patient denies any acute symptoms. Eager to be discharged Physical Exam Physical Exam: Constitutional: Alert, sitting in chair HEENT: Mucous membranes moist. Lungs: Clear to auscultation, decreased, no wheezes rales or rhonchi CV: S1-S2, regular Abdomen: Soft, nontender, nondistended Extremities: No significant edema Neuro: No focal deficits, generalized weakness, extremely hard of hearing Psych: Cooperative, normal mood, abnormal memory Results & Data Results & Data Vital Signs (Past 12 Hours) Vital Signs Temp Pulse Pulse Resp BP Pulse Ox O2 Del Method 07/29/24 14:30 92 H 07/29/24 09:00 Room Air 07/29/24 07:44 36.7 C 77 20 128/59 L 91 Room Air 07/29/24 07:00 76 07/29/24 03:51 36.7 C 72 20 114/76 98 Nasal Cannula O2 Flow Rate 07/29/24 14:30 07/29/24 09:00 07/29/24 07:44 07/29/24 07:00 07/29/24 03:51 2 Diagnostic Findings Reviewed imaging, laboratory and diagnostic studies. Pertinent findings as below. Hemoglobin 7.8, stable Creatinine 1.8, baseline
--- NOTE | 2024-07-30 14:59 | Hospitalist Progress Note ---
Date of Service July 30, 2024 Assessment & Plan (1) Recurrent colitis due to Clostridium difficile: (2) Acute lower GI bleeding: (3) Acute exacerbation of chronic heart failure: (4) Coronary artery disease: (5) Paroxysmal A-fib: (6) Dementia associated with Parkinson's disease: (7) Diabetes type 2, controlled: (8) CKD (chronic kidney disease) stage 3, GFR 30-59 ml/min: Plan Continue Dificid Case management working on cost of Dificid. Received prior authorization from insurance for Dificid, however co-pay remains $1400. Case management sending a request to manufacture of Dificid for patient assistance. Form sent. Phone conversation with patient's , she now is willing to take him home and continue to work with home therapy and home health care. Diabetes is well-controlled on current diet, recommended discontinuing metformin at the time of discharge due to the tendency of causing diarrhea. Continue current diuretics Continue therapies Patient is at high risk for decompensating if he cannot complete a full course of the Dificid patient has failed multiple courses with oral vancomycin. Patient may end up being in hospital until he completes course of Dificid. Admission and Anticipated Discharge Date Admission Date: July 25, 2024 Subjective Patient has no complaints. Seems to be getting stronger. No evidence of ongoi ng GI blood loss Physical Exam Physical Exam: Constitutional: Alert, sitting in chair, HEENT: Mucous membranes moist. Extremely hard of hearing Lungs: Clear to auscultation, decreased, no wheezes rales or rhonchi CV: S1-S2, regular Abdomen: Soft, nontender, nondistended Extremities: Mild chronic edema, bilateral legs wrapped in Kerlix Neuro: No focal deficits Psych: Cooperative, normal mood Results & Data Results & Data Vital Signs (Past 12 Hours) Vital Signs Temp Pulse Resp BP Pulse Ox O2 Del Method 07/30/24 11:05 36.5 C 71 20 119/63 92 Room Air 07/30/24 07:33 36.7 C 79 18 132/72 86 L Nasal Cannula 07/30/24 07:15 Room Air 07/30/24 07:15 81 16 113/63 94 Room Air
[2024-07-31 07:01] LABS: Hematocrit (blood only) 25.3 % (42.0-52.0); Hemoglobin 7.6 g/dl (14.0-18.0); Mean Corpuscular Hemoglobin 32.1 pg (25.0-34.0); Mean Corpuscular Volume 106.8 fL (80.0-100.0); Mean Platelet Volume 9.7 fL (9.4-12.4); Platelet Count 150 K/uL (130-400); RDW Coefficient of Variation 16.9 % (11.5-14.5); RDW Standard Deviation 65.9 fL (36.4-46.3); Red Blood Count 2.37 M/uL (4.70-6.10); White Blood Count 4.64 K/ul (4.8-10.8)
[2024-07-31 07:34] LABS: BUN Creatinine Ratio 17.3 (10-20); Calcium 8.3 mg/dl (8.6-10.3); Creatinine Clr Calc Pharmacy 25.9 ml/min; Potassium 3.8 mmol/L (3.5-5.1)
--- NOTE | 2024-07-31 14:17 | Hospitalist Progress Note ---
Date of Service July 31, 2024 Assessment & Plan (1) Acute lower GI bleeding: (2) Recurrent colitis due to Clostridium difficile: (3) Acute exacerbation of chronic heart failure: (4) Edema of both legs: (5) Coronary artery disease: (6) Paroxysmal A-fib: (7) Dementia associated with Parkinson's disease: (8) Diabetes type 2, controlled: (9) CKD (chronic kidney disease) stage 3, GFR 30-59 ml/min: Plan: 79-year-old male with history of coronary disease/CABG, CHF diastolic type, mitral and aortic regurgitation, paroxysmal atrial fibrillation, diabetes type 2, CKD stage III, BPH, chronic lower extremity stasis ulcers, dementia with Parkinson disease, anemia of iron deficiency, presenting with bright red blood per rectum x 2 days. Atrial fibrillation with rapid ventricular response History of paroxysmal atrial fibrillation Not on anticoagulation secondary to recurrent GI bleed per records Continue metoprolol- missed initial dose in the hospital Appreciate cardiology input and recommendation No more RVR since yesterday and denies any cardiac symptoms Heart rate is controlled denies any cardiac symptoms Has been getting metoprolol succinate 50 mg twice daily Heart rate is reasonably controlled Hematochezia Likely secondary to recurrent C. difficile, third episode--C. difficile infections on 47/ and 07/13/2024 Hemoglobin 8.1, baseline is 9 Has chronic iron deficiency anemia, has received blood transfusion and IV iron last week Discontinue vancomycin, start fidaxomicin 200 mg p.o. twice daily Appreciate GI input and recommendationhas small bowel AVMs and if the bleeding continues and is of concern he should be transferred to tertiary care center for upper device assisted enteroscopy Advised to have Dificid 200 mg twice daily for 10 days followed by 20 mg every other day for 20 days Stool moved brown in color Denies any abdominal symptoms No more hematochezia but is still having dark stool Denies any more bleeding per rectum Deficit doses have been approved from the manufacture and the patient can be discharged home tomorrow Acute on chronic congestive heart failure with preserved EF Moderate aortic and mitral regurgitation Usually on torsemide 20 g p.o. daily Start Lasix 40 mg IV daily Echocardiogram was recently done back in April 2024 Denies any signs and or symptoms of fluid overload or CHF Appreciate cardiology input and recommendation Will get outpatient dose of torsemide on discharge We will give additional dose of intravenous Lasix today for increasing leg swelling and likely discharge tomorrow Chronic bilateral lower extremity edema with wounds Questionable cellulitis versus erythema secondary to chronic edema Hold antibiotics for now in light of recurrent C. difficile Check procalcitonin Wound care consulted- appreciate input and recommendation Legs are looking much better Additional dose of intravenous Lasix today Coronary disease/CABG Not on aspirin Continue Lipitor and metoprolol Diabetes type 2 Usually on metformin Insulin sliding scale for now GERD Continue Protonix BPH Continue dutasteride CKD stage III Stable Parkinson with dementia Continue omeprazole, bupropion, ezetimibe CODE STATUS full code Admission and Anticipated Discharge Date Admission Date: July 25, 2024 Subjective 07/26/2024 The patient was seen and examined in medical telemetry unit He complains to have some abdominal discomfort and does not want to take any m edicine in empty stomach Denies any chest pain and/or palpitation No shortness of breath at rest 07/27/2024 The patient was seen and examined in medical telemetry unit He has been feeling much better today and did not have any more episodes of tachycardia Denies any other significant symptoms Denies any other significant symptoms 07/28/2024 The patient was seen and examined in medical telemetry unit He has been feeling much better and wants to have regular food Denies any chest pain, shortness of breath or palpitation Denies any other significant symptoms 07/31/2024 The patient was seen and examined in medical telemetry unit He has been feeling much better and denies any significant symptoms Diarrhea is controlled and awaiting to get Dificid at a lower cost from the wall taper Review of Systems Review of Systems: All systems reviewed and are unremarkable except as noted below Physical Exam Physical Exam: Sitting on a chair without any acute distress Constitutional: well developed, well nourished, + ill appearing and average body habitus Eyes: PERRL, conjunctivae normal, anicteric sclerae ENMT: external ear and nose normal, oropharynx normal Neck: trachea midline, no thyromegaly Respiratory: no respiratory distress Auscultation: lungs clear to auscultation bilaterally Cardiovascular: Rate/Rhythm: regular rate and regular rhythm; not tachycardic Heart Sounds: normal S1 and normal S2; no murmur Extremities: + edema (Trace edema bilaterally with significant chronic skin changes and bilateral) Gastrointestinal (Abdomen): Inspection/Auscultation: normal bowel sounds; abdomen not distended Percussion/Palpation: abdomen soft; abdomen nontender Neurologic: normal touch/pain/proprioception and moves all extremities; no focal motor deficits Lymphatic: no cervical or axillary lymphadenopathy Results & Data Results & Data Vital Signs (Past 12 Hours) Vital Signs Temp Pulse Resp BP Pulse Ox O2 Del Method O2 Flow Rate 07/31/24 07:55 36.7 C 97 H 16 126/77 98 Nasal Cannula 2 Laboratory Results Short CBC 07/31/24 Range/Units 06:22 WBC 4.64 L (4.8-10.8) K/ul Hgb 7.6 L (14.0-18.0) g/dl Hct 25.3 L (42.0-52.0) % Plt Count 150 (130-400) K/uL BMP 07/31/24 06:22 Sodium 142 Potassium 3.8 Chloride 106 Carbon Dioxide 29 BUN 39 H Creatinine 2.25 H Glucose 111 H Calcium 8.3 L Medications Administered Current Inpatient Medications Allopurinol (Allopurinol 300 Mg Tab) 300 mg PO QAM [facility] Stop: 08/25/24 08:59 Last Admin: 07/31/24 08:33 Dose: 300 mg Amantadine HCl (Amantadine Hcl 100 Mg Capsule) 100 mg PO QAM [facility] Stop: 08/25/24 08:59 Last Admin: 07/31/24 08:33 Dose: 100 mg Atorvastatin Calcium (Atorvastatin 40 Mg Tab) 40 mg PO QAM [facility] Stop: 08/25/24 08:59 Last Admin: 07/31/24 08:33 Dose: 40 mg Dextrose (Dextrose 50% 50 Ml Syringe) 25 - 50 ml IV UD PRN; Protocol PRN Reason: Hypoglycemia Protocol Stop: 08/24/24 20:57 Escitalopram Oxalate (Escitalopram Oxalate 20 Mg Tab) 20 mg PO QAM [facility] Stop: 08/25/24 08:59 Last Admin: 07/31/24 08:33 Dose: 20 mg Fidaxomicin (Fidaxomicin 200 Mg Tab) 200 mg PO BID [facility] Stop: 08/04/24 20:57 Last Admin: 07/31/24 08:35 Dose: 200 mg Finasteride (Finasteride 5 Mg Tab) 5 mg PO QAM [facility] Stop: 08/25/24 08:59 Last Admin: 07/31/24 08:33 Dose: 5 mg Glucagon (Glucagon For Inj 1 Mg Vial) 1 mg SQ UD PRN; Protocol PRN Reason: Hypoglycemia Protocol Stop: 08/24/24 20:57 Glucose (Glucose 40% Gel 15 Gm Tube) 15 - 30 gm PO UD PRN; Protocol PRN Reason: Hypoglycemia Protocol Stop: 08/24/24 20:57 Glucose (Glucose 10 Tab/Tube) 4 - 8 tab PO UD PRN; Protocol PRN Reason: Hypoglycemia Treatment Stop: 08/24/24 20:57 Metoprolol Succinate (Metoprolol Succ 50mg Ext Rel Tab) 50 mg PO BID [facility] Stop: 08/26/24 20:59 Last Admin: 07/31/24 08:33 Dose: 50 mg Miscellaneous (Carbohydrates For Hypoglycemia ) 15 - 30 gm PO UD PRN PRN Reason: Hypoglycemia Protocol Stop: 08/24/24 20:57 Multi-Ingredient Cream (Eucerin Cr 120 Gm Jar) 1 appln EXT BID [facility] Stop: 08/25/24 20:59 Last Admin: 07/31/24 08:32 Dose: Not Given Torsemide (Torsemide 20 Mg Tab) 20 mg PO QAM [facility] Stop: 08/28/24 08:59 Last Admin: 07/31/24 08:33 Dose: 20 mg Vitamin B Complex (Vitamin B Complex Tab) 1 tab PO DAILY [facility] Stop: 08/25/24 08:59 Last Admin: 07/31/24 08:33 Dose: 1 tab
[2024-07-31] MEDS: FUROSEMIDE 40 MG/4 ML VIAL IV ONE (15:04)
[2024-07-31] MEDS: POTASSIUM CHLORIDE CRTAB 20 MEQ TABCR PO STA (15:04)
[2024-08-01 06:17] LABS: Basophils # (auto) 0.04 K/uL (0.00-0.20); Basophils % (auto) 0.9 %; Eosinophils # (auto) 0.02 K/uL (0.00-0.50); Eosinophils % (auto) 0.4 %; Hematocrit (blood only) 26.4 % (42.0-52.0); Immature Granulocytes # (auto) 0.03 K/uL (0.01-0.20); Immature Granulocytes % (auto) 0.6 %; Lymphocytes # (auto) 0.91 K/uL (1.20-3.40); Lymphocytes % (auto) 19.6 %; Mean Corpuscular Hgb Conc 30.3 g/dL (32.0-36.0); Mean Corpuscular Volume 105.6 fL (80.0-100.0); Mean Platelet Volume 9.9 fL (9.4-12.4); Monocytes # (auto) 0.48 K/uL (0.11-0.59); Monocytes % (auto) 10.3 %; Neutrophils # (auto) 3.16 K/uL (1.40-6.50); Neutrophils % (auto) 68.2 %; Platelet Count 155 K/uL (130-400); RDW Coefficient of Variation 16.4 % (11.5-14.5); RDW Standard Deviation 63.3 fL (36.4-46.3); White Blood Count 4.64 K/ul (4.8-10.8)
[2024-08-01 06:35] LABS: Magnesium 1.8 mg/dl (1.7-2.4)
[2024-08-01 06:55] LABS: Ferritin 131.2 ng/ml (8-388)
[2024-08-01 08:00] VITALS: RESP 20
[2024-08-01 09:17] LABS: BUN Creatinine Ratio 19.8 (10-20); Calcium 8.5 mg/dl (8.6-10.3); Creatinine Clr Calc Pharmacy 27.5 ml/min; Magnesium 1.8 mg/dl (1.7-2.4); Potassium 3.8 mmol/L (3.5-5.1)
[2024-08-01 11:11] VITALS: BP 173/68; PULSE 59; TEMP 97.3; O2SAT 91
--- NOTE | 2024-08-01 11:28 | Hospitalist Progress Note ---
Date of Service August 01, 2024 Assessment & Plan (1) Acute lower GI bleeding: (2) Recurrent colitis due to Clostridium difficile: (3) Acute exacerbation of chronic heart failure: (4) Edema of both legs: (5) Coronary artery disease: (6) Paroxysmal A-fib: (7) Dementia associated with Parkinson's disease: (8) Diabetes type 2, controlled: (9) CKD (chronic kidney disease) stage 3, GFR 30-59 ml/min: Plan: 79-year-old male with history of coronary disease/CABG, CHF diastolic type, mitral and aortic regurgitation, paroxysmal atrial fibrillation, diabetes type 2, CKD stage III, BPH, chronic lower extremity stasis ulcers, dementia with Parkinson disease, anemia of iron deficiency, presenting with bright red blood per rectum x 2 days. Atrial fibrillation with rapid ventricular response History of paroxysmal atrial fibrillation Not on anticoagulation secondary to recurrent GI bleed per records Continue metoprolol- missed initial dose in the hospital Appreciate cardiology input and recommendation No more RVR since yesterday and denies any cardiac symptoms Heart rate is controlled denies any cardiac symptoms Has been getting metoprolol succinate 50 mg twice daily Heart rate is reasonably controlled Denies any more cardiac symptoms Hematochezia Likely secondary to recurrent C. difficile, third episode--C. difficile infections on / and 07/13/2024 Hemoglobin 8.1, baseline is 9 Has chronic iron deficiency anemia, has received blood transfusion and IV iron last week Discontinue vancomycin, start fidaxomicin 200 mg p.o. twice daily Appreciate GI input and recommendationhas small bowel AVMs and if the bleeding continues and is of concern he should be transferred to tertiary care center for upper device assisted enteroscopy Advised to have Dificid 200 mg twice daily for 10 days followed by 20 mg every other day for 20 days Stool moved brown in color Denies any abdominal symptoms No more hematochezia but is still having dark stool Denies any more bleeding per rectum Deficit doses have been approved from the manufacture and the patient can be discharged home tomorrow No more hematochezia and denies any more diarrhea Acute on chronic congestive heart failure with preserved EF Moderate aortic and mitral regurgitation Usually on torsemide 20 g p.o. daily Start Lasix 40 mg IV daily Echocardiogram was recently done back in April 2024 Denies any signs and or symptoms of fluid overload or CHF Appreciate cardiology input and recommendation Will get outpatient dose of torsemide on discharge We will give additional dose of intravenous Lasix today for increasing leg swelling and likely discharge tomorrow Will advise additional torsemide for increasing leg swelling and/or increasing weight over 3 pounds in a week Chronic bilateral lower extremity edema with wounds Questionable cellulitis versus erythema secondary to chronic edema Hold antibiotics for now in light of recurrent C. difficile Check procalcitonin Wound care consulted- appreciate input and recommendation Legs are looking much better Additional dose of intravenous Lasix today Elevate the legs when possible and also increase activity at home to decrease the leg swelling Coronary disease/CABG Not on aspirin Continue Lipitor and metoprolol Diabetes type 2 Usually on metformin Insulin sliding scale for now GERD Continue Protonix BPH Continue dutasteride CKD stage III Stable Parkinson with dementia Continue omeprazole, bupropion, ezetimibe CODE STATUS full code Admission and Anticipated Discharge Date Admission Date: July 25, 2024 Subjective 07/26/2024 The patient was seen and examined in medical telemetry unit He complains to have some abdominal discomfort and does not want to take any medicine in empty stomach Denies any chest pain and/or palpitation No shortness of breath at rest 07/27/2024 The patient was seen and examined in medical telemetry unit He has been feeling much better today and did not have any more episodes of tachycardia Denies any other significant symptoms Denies any other significant symptoms 07/28/2024 The patient was seen and examined in medical telemetry unit He has been feeling much better and wants to have regular food Denies any chest pain, shortness of breath or palpitation Denies any other significant symptoms 07/31/2024 The patient was seen and examined in medical telemetry unit He has been feeling much better and denies any significant symptoms Diarrhea is controlled and awaiting to get Dificid at a lower cost from the chemical blender 08/01/2024 The patient was seen and examined in medical telemetry unit He remains asymptomatic and the right leg swelling is persisting He denies any pain in the leg and does not have any other significant symptoms He will be discharged home this afternoon Review of Systems Review of Systems: All systems reviewed and are unremarkable except as noted below Physical Exam Physical Exam: Sitting on a chair without any acute distress Constitutional: well developed, well nourished, + ill appearing and average body habitus Eyes: PERRL, conjunctivae normal, anicteric sclerae ENMT: external ear and nose normal, oropharynx normal Neck: trachea midline, no thyromegaly Respiratory: no respiratory distress Auscultation: lungs clear to auscultation bilaterally Cardiovascular: Rate/Rhythm: regular rate and regular rhythm; not tachycardic Heart Sounds: normal S1 and normal S2; no murmur Extremities: + edema ( 1+ edema bilaterally ,> rt with significant chronic skin changes on both) Gastrointestinal (Abdomen): Inspection/Auscultation: normal bowel sounds; abdomen not distended Percussion/Palpation: abdomen soft; abdomen nontender Neurologic: normal touch/pain/proprioception and moves all extremities; no focal motor deficits Lymphatic: no cervical or axillary lymphadenopathy Results & Data Results & Data Vital Signs (Past 12 Hours) Vital Signs Temp Pulse Resp BP Pulse Ox O2 Del Method 08/01/24 11:10 36.3 C L 59 L 20 173/68 H 91 Room Air 08/01/24 07:59 36.7 C 80 20 134/59 L 97 Room Air 08/01/24 07:37 Room Air Laboratory Results Short CBC 08/01/24 Range/Units 05:46 WBC 4.64 L (4.8-10.8) K/ul Hgb 8.0 L (14.0-18.0) g/dl Hct 26.4 L (42.0-52.0) % Plt Count 155 (130-400) K/uL BMP 08/01/24 08:28 Sodium 143 Potassium 3.8 Chloride 106 Carbon Dioxide 29 BUN 42 H Creatinine 2.12 H Glucose 133 H Calcium 8.5 L Medications Administered Current Inpatient Medications Allopurinol (Allopurinol 300 Mg Tab) 300 mg PO QA [facility] Stop: 08/25/24 08:59 Last Admin: 08/01/24 10:23 Dose: 300 mg Amantadine HCl (Amantadine Hcl 100 Mg Capsule) 100 mg PO QAM [facility] Stop: 08/25/24 08:59 Last Admin: 08/01/24 10:23 Dose: 100 mg Atorvastatin Calcium (Atorvastatin 40 Mg Tab) 40 mg PO QAM [facility] Stop: 08/25/24 08:59 Last Admin: 08/01/24 10:23 Dose: 40 mg Dextrose (Dextrose 50% 50 Ml Syringe) 25 - 50 ml IV UD PRN; Protocol PRN Reason: Hypoglycemia Protocol Stop: 08/24/24 20:57 Escitalopram Oxalate (Escitalopram Oxalate 20 Mg Tab) 20 mg PO QAM [facility] Stop: 08/25/24 08:59 Last Admin: 08/01/24 10:23 Dose: 20 mg Fidaxomicin (Fidaxomicin 200 Mg Tab) 200 mg PO BID [facility] Stop: 08/04/24 20:57 Last Admin: 08/01/24 10:47 Dose: 200 mg Finasteride (Finasteride 5 Mg Tab) 5 mg PO QAM [facility] Stop: 08/25/24 08:59 Last Admin: 08/01/24 10:25 Dose: 5 mg Glucagon (Glucagon For Inj 1 Mg Vial) 1 mg SQ UD PRN; Protocol PRN Reason: Hypoglycemia Protocol Stop: 08/24/24 20:57 Glucose (Glucose 40% Gel 15 Gm Tube) 15 - 30 gm PO UD PRN; Protocol PRN Reason: Hypoglycemia Protocol Stop: 08/24/24 20:57 Glucose (Glucose 10 Tab/Tube) 4 - 8 tab PO UD PRN; Protocol PRN Reason: Hypoglycemia Treatment Stop: 08/24/24 20:57 Metoprolol Succinate (Metoprolol Succ 50mg Ext Rel Tab) 50 mg PO BID [facility] Stop: 08/26/24 20:59 Last Admin: 08/01/24 10:25 Dose: 50 mg Miscellaneous (Carbohydrates For Hypoglycemia ) 15 - 30 gm PO UD PRN PRN Reason: Hypoglycemia Protocol Stop: 08/24/24 20:57 Multi-Ingredient Cream (Eucerin Cr 120 Gm Jar) 1 appln EXT BID [facility] Stop: 08/25/24 20:59 Last Admin: 08/01/24 10:31 Dose: Not Given Torsemide (Torsemide 20 Mg Tab) 20 mg PO QAM [facility] Stop: 08/28/24 08:59 Last Admin: 08/01/24 10:25 Dose: 20 mg Vitamin B Complex (Vitamin B Complex Tab) 1 tab PO DAILY [facility] Stop: 08/25/24 08:59 Last Admin: 08/01/24 10:25 Dose: 1 tab
== END 2024-08-01 15:36 | disposition home health service (06) | DRG 371 ==
LOC: ED 12:39 → 2W 17:01 → SUATTDRO 17:01 → 2W 20:34

== ENCOUNTER 2025-03-04 13:09 | Inpatient (IN) ==
--- NOTE | 2025-03-04 13:14 | Emergency Department Note ---
Impression & Plan Weakness, Occult blood in stools, Acute kidney injury superimposed on stage 3b chronic kidney disease, Acute anterior epistaxis ED Provider Note CHIEF COMPLAINT: Nosebleed, weakness, blood in stool HISTORY OF PRESENTING ILLNESS: This 79-year-old male patient presents to the emergency department via ambulance for evaluation of a nosebleed. The patient slipped out of his chair and landed on his bottom yesterday. He did not hit his head. No LOC. He is not on any blood thinners. The nosebleed started overnight and has been continuing to bleed. His noticed blood in his stool today. He has a history of GI bleed which is why he was taken off of the blood thinners for his Afib. He has been feeling weak today as well. The [facility] came to his house today and they were concerned about his symptoms. He has a history of anemia with transfusions in the past. Home nursing put cotton packing in the left nares with control of the nosebleed. He has chronic redness and swelling in his legs and denies any recent change. He states that he has followed up with the wound clinic for his legs in the past. He denies any chest pain or SOB. He denies any abdominal pain, nauesa, or vomiting. He denies any urinary symptoms. REVIEW OF SYSTEMS: See HPI for pertinent positives and pertinent negatives. ALLERGIES: NSAIDs, YONATAN inhibitors, Carbidopa, Levodopa MEDICATIONS: See below PAST MEDICAL HISTORY: See below PHYSICAL EXAM: VITALS: Vitals are noted on the nurse's note and reviewed by myself. GENERAL: Non toxic, in no acute distress, non-diaphoretic. SKIN: The patient has some breakdown of the skin to the sacral area consistent with a superficial sacral pressure ulcer. No evidence for infection. No deep ulcer present. The patient also has some chronic venous stasis changes to the bilateral lower extremities. The patient has a skin tear to the left forearm per his that was cleaned and dressed by the home nurse. The dressing was not removed as the dressing was signed and dated by the home care nurse. Capillary refill <2 sec. EYES: PERRLA. EOMI. Conjunctivae without injection, sclerae without icterus. NOSE: Bilateral nares patent. The patient has what appears to be a nasal polyp in the left nares with an area of scabbing which appears to be the source of bleeding. However, no active bleeding at this time. No septal deviation. No septal hematoma. MOUTH: Mucous membranes moist. Uvula midline. Airway patent. No blood in the posterior pharynx. NECK: Supple without nuchal rigidity. HEART: Irregularly irregular rhythm with flow murmur noted. LUNGS: Clear to auscultation bilaterally without wheezes, rales or rhonchi. No retractions or accessory muscle use. ABDOMEN: Positive bowel sounds x 4. Normal tympanic percussion. Soft, nontender to palpation. No masses or hepatosplenomegaly. Ac sign negative. No CVA tenderness. No guarding, rigidity, or rebound tenderness. No focal RLQ or LLQ tenderness. RECTAL EXAM: Permission to perform the exam. Travel Rn present for exam. No external lesions noted. No external hemorrhoids. Normal sphincter tone. Internal hemorrhoids are not enlarged. No masses, tears, fistulas, fissures, abscess, or other lesion noted. Stool is brown and Hemoccult positive. MUSCULOSKELETAL: See skin exam. No gross musculoskeletal defects. NEURO: The patient was able to answer questions relatively appropriately. However, there are signs of underlying dementia with some of his answers. The patient is able to move his bilateral upper and lower extremities equally, but strength is decreased equally. No facial droop noted. Tongue does not deviate. The patient states that he has normal sensation compared to his baseline. DIFFERENTIAL DIAGNOSIS: Differential diagnosis includes infection, dehydration, metabolic abnormality, hypo/hyperglycemia, electrolyte disturbance, anemia, hypoxia, cardiac sources, intracerebral event, toxicologic, neurologic, VT, PE, pneumonia, hepatitis, pancreatitis, cholecystitis, cholelithiasis, appendicitis, kidney stone, pyelonephritis, UTI, gastritis, gastroenteritis, mesenteric adenitis, obstruction, constipation, hernia, abdominal abscess, perforation, diverticulitis, IBD, ischemic colitis, abdominal aortic aneurysm, testicular torsion, prostatitis, or others. ED COURSE AND MEDICAL DECISION MAKING: HISTORY FROM INDEPENDENT HISTORIAN: Additional history obtained from EMS. Additional history was obtained from the patient's and daughter once they arrived. MEDICATIONS GIVEN: 250 mL normal saline solution bolus. MONITOR: Continuous rn cardiac: Order was placed for continuous rn cardiac. Patient was placed on the rn cardiac and continuous pulse ox. Patient was noted to be in normal sinus rhythm at an initial rate of 80 bpm per my interpretation. EKG: EKG was interpreted by myself as A-fib at [address]pm with no acute [address] or T wave changes. INTERPRETATION OF LABS: I interpreted the labs with full lab results as below in the lab section of this note. Laboratory results pertinent to the emergent complaint are discussed in the MDM section below. The patient was advised to follow up with their PCP and/or specialist(s) for further outpatient monitoring and management of any abnormal results. INTERPRETATION OF IMAGING: Imaging studies were interpreted by myself and read by radiology as per the imaging section of this note. The patient was advised to follow up with their PCP and/or specialist(s) for further outpatient management of any non-emergent abnormal findings. Chest x-ray shows no acute cardiopulmonary etiology, but does show stable changes from his CABG and stable prominent cardiomegaly with mild pulmonary vascular congestion. CT scan of the head without contrast was negative for acute intracranial abnormality. CT scan of the abdomen and pelvis without contrast since the patient's renal functions are abnormal showed no acute traumatic intra-abdominal or intrapelvic abnormality. No bowel obstruction or pneumoperitoneum. No acute fracture. There is wall thickening of the duodenum and proximal jejunum which favors a nonspecific infectious or inflammatory process. CHRONIC MEDICAL/SOCIAL CONDITIONS AFFECTING CARE: Early onset dementia, history of GI bleed as well as history of anemia with transfusion in the past. CONSULTATIONS: On-call hospitalist MDM SUMMARY: I examined the patient. The patient slid off his chair and landed on his buttocks yesterday. He states that he did not hit his head. There was no loss of consciousness. He is not on any blood thinners because he was taken off of them for his A-fib due to history of a GI bleed. The patient then started with a nosebleed last night from the left nares. The patient's also noticed some blood in his stool this morning. Home health came to visit the patient today and put cotton packing in the left nares with stopping of the blood. However, the patient has been weak and with the blood in his stool and history of anemia, they referred him to the ER. Rectal exam with Hemoccult positive stool. The patient's nosebleed appears to be coming from a friable area from a possible polyp in the left nares. No active bleeding at the time of my exam. Afrin was used to help prevent rebleed of the nose. No additional bleeding from the nose while in the ER. An IV lock was placed and labs were drawn. The patient was gently hydrated with 250 mL normal saline solution bolus. White blood cell count normal at 5.95. Hemoglobin slightly low at 12.8. Platelet count normal at 138. Coags are normal. Creatinine elevated 2.21 and BUN 48 which is slightly increased from his baseline. Glucose 124 and alk phos 182, but CMP otherwise without concerning abnormalities. Magnesium slightly elevated at 2.5. High-sensitivity troponin was normal. Lipase slightly elevated at 108 with upper limits of normal of 82. Chest x-ray shows no acute cardiopulmonary etiology, but does show stable changes from his CABG and stable prominent cardiomegaly with mild pulmonary vascular congestion. CT scan of the head without contrast was negative for acute intracranial abnormality. CT scan of the abdomen and pelvis without contrast since the patient's renal functions are abnormal showed no acute traumatic intra-abdominal or intrapelvic abnormality. No bowel obstruction or pneumoperitoneum. No acute fracture. There is wall thickening of the duodenum and proximal jejunum which favors a nonspecific infectious or inflammatory process. The patient's and daughter state that his bilateral lower extremities actually look better compared to his baseline chronic venous stasis changes. The patient does have the possible start of a pressure ulcer to his buttocks/gluteal area. Nursing staff applied a preventative foam dressing. The patient's and daughter state that he is at his baseline for his dementia, but he has been more weak than usual. Neurologic exam was somewhat limited due to his baseline dementia, but he is able to move the bilateral upper and lower extremities equally, there is no facial droop, no change in his speech, and no concerning focal deficits noted. The patient's does not feel that she can properly take care of the patient at home because of his weakness. Therefore, the patient will require admission. I had a meaningful discussion about this patient with Dr. Quinn who agrees with my assessment and the treatment plan. I spoke with the on-call hospitalist who agreed to admit the patient for further evaluation and treatment. Please refer to their dictation for further details. The patient's care was transferred in stable condition. DIAGNOSIS: Weakness Hemoccult positive stool Epistaxis from the left nares Acute on chronic renal injury Past Med/Surg History Problem List (Updated 03/04/25 @ 18:56 by Belle Stanley PA-C) Acute anterior epistaxis (Acute) Occult blood in stools (Acute) Weakness (Acute) DM type 2 (diabetes mellitus, type 2) Oral thrush (HFpEF) heart failure with preserved ejection fraction Acute kidney injury superimposed on stage 3b chronic kidney disease (Acute) Parkinson's disease Blood in stool Deformity of foot Urticaria Loss of protective sensation of skin of foot Bilateral high frequency sensorineural hearing loss Encounter for wound care Tachycardia (Acute) Edema of left forearm (Acute) Venous stasis ulcers of both lower extremities (Acute) Chronic venous insufficiency Abnormal ankle brachial index Acute exacerbation of chronic heart failure Recurrent colitis due to Clostridium difficile (Acute) Acute lower GI bleeding (Acute) Anemia (Acute) CHF (congestive heart failure) (Acute) Elevated brain natriuretic peptide (BNP) level (Acute) Atrial fibrillation with rapid ventricular response (Acute) Generalized weakness (Acute) Acute GI bleeding (Acute) Anemia (Acute) Transfusion-dependent anemia Elevated lipase Melena Acute on chronic anemia CKD (chronic kidney disease) (Acute) Symptomatic anemia (Acute) Acute GI bleeding (Acute) Blood in both ear canals Osteoarthritis of right knee Bilateral chronic serous otitis media Generalized weakness (Acute) Diarrhea (Acute) Ambulatory dysfunction (Acute) Anemia Paroxysmal A-fib (Acute) Acute heart failure with preserved ejection fraction (HFpEF) Lumbar transverse process fracture Hypovolemic shock Encounter for pre-operative examination Colon polyps Acute kidney injury superimposed on CKD Heme positive stool Acute blood loss anemia Symptomatic anemia (Acute) Acute hypotension (Acute) Acute GI bleeding (Acute) Status post fall Chronic heart failure with preserved ejection fraction (HFpEF) Hypervolemia (Acute) ETD (eustachian tube dysfunction) Encounter for pre-operative examination Immunosuppressed status Dental infection Generalized weakness (Acute) Congestive heart failure (Acute) Hypoxia (Acute) Hematuria Electrolyte imbalance Diarrhea Coronary artery disease COPD (chronic obstructive pulmonary disease) (Acute) Hypomagnesemia (Acute) DVT prophylaxis Hypomagnesemia CHF (congestive heart failure) (Acute) Acute respiratory failure with hypoxia SOB (shortness of breath) History of total right hip replacement 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 Dementia (Acute) Sensorineural hearing loss (SNHL) of both ears S/P triple vessel bypass (2011) [facility] w/Dr. Weathers; f/u Dr. Benz, [place] Moderate mitral regurgitation f/u Dr. Benz, [place] 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Acute) Primary parkinsonism (Acute) GERD (gastroesophageal reflux disease) HTN (hypertension) CKD (chronic kidney disease) stage 3, GFR 30-59 ml/min (Acute) Diabetes type 2, controlled Dyslipidemia BPH (benign prostatic hyperplasia) Medical History GI bleed 09/2023 Anemia 09/2023 inpt at [facility] Atrial fibrillation f/u Dr. Benz, [facility] Eliquis on hold due to anemia History of blood transfusion 10/06/23- was admitted at [facility], low blood count, reason for upcoming procedure 03/24/23, "he's bleeding somewhere, has a low blood count, not sure where losing it from"; f/u Dr. 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 History of pneumonia end of 01/2023, found in lt. 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 Parkinson's>no current issues Diastolic dysfunction Lower extremity edema HUNTER (iron deficiency anemia) Ambulatory dysfunction Seasonal allergies Thoracic aortic aneurysm sx in 2011, at [facility] Lumbar spondylosis MUSTAFA (dyspnea on exertion) inh prn Coronary aneurysm (2011) Per cardio records CAD with CABG in 2011 (CHILDS to LAD and exclusion of RCA aneurysm Adverse reaction to anesthetic agent 2011 w/hip replacement>hallucinated for 3 days Orthostatic hypotension (07/2019) Peripheral arterial disease Recurrent cellulitis of lower extremity reason for daily cephalexin Anxiety CAD (coronary artery disease) history of CABG (CHILDS to LAD and exclusion of a right coronary artery aneurysm), [address] [facility]. Surgical History History of carpal tunnel release of both wrists History of esophagogastroduodenoscopy (EGD) Hx of colonoscopy Hx of bilateral cataract extraction History of neck surgery [facility] w/Dr. 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 foot H/O eye surgery numerous when he was young Family History Unknown No problems noted. Father Hypertension, Onset Age: 40 at 40 Mother Hypertension COPD (chronic obstructive pulmonary disease) Diabetes Brother Allergies Asthma Grandmother Diabetes Denies family history of Prostate cancer Hearing loss No family history of adverse response to anesthesia No family history of bleeding disorder Heart disease Cancer Stroke Social History Smoking Status: Never smoker Second Hand Exposure: No; Do You Dip or Chew Tobacco: No; Hx Alcohol Use: No Hx Substance Use: No Preferred Language: German Communication Ability: Effective Communication Ability Comment: Hard of hearing Communication Tools: Facial Expression, Physical Gestures and Lip Movement/Reading Visual Impairment: No Limitations Hearing Ability: Use of Hearing Aid Cad Intern Required: Yes Beliefs That Will Affect Care: None marital status: Current Living Situation: Spouse Current Living Situation Comment: Lives at home with spouse current occupational status: retired How many Children do You have: 2 Feels Safe at Home: Yes Diet: diabetic and low salt caffeine: Yes during the past year weight has: remained stable Assistive Devices: Oxygen - at Night Allergies Allergies Allergy/AdvReac Type Severity Reaction Status Date / Time NSAIDS (Non-Steroidal Allergy Intermediate Rash Verified 11/18/24 08:04 Anti-Inflamma YONATAN Inhibitors AdvReac Intermediate Cough Verified 11/14/24 15:33 carbidopa AdvReac Intermediate constipatio Verified 11/14/24 15:33 n levodopa AdvReac Intermediate constipatio Verified 11/14/24 15:33 n Home Meds Home Medications Medication Instructions Recorded Confirmed amantadine HCl 100 mg capsule 100 mg PO QAM 05/22/20 03/04/25 dutasteride 0.5 mg capsule 0.5 mg PO QAM 01/24/23 03/04/25 atorvastatin 40 mg tablet 40 mg PO QAM 01/08/24 03/04/25 allopurinol 300 mg tablet 300 mg PO QAM 07/25/24 03/04/25 escitalopram oxalate 20 mg tablet 20 mg PO QAM 08/15/24 03/04/25 torsemide 20 mg tablet 40 mg PO QAM 08/15/24 03/04/25 spironolactone 25 mg tablet 12.5 mg PO QAM 10/02/24 03/04/25 empagliflozin 10 mg tablet 10 mg PO QAM 11/05/24 03/04/25 (Jardiance) Magic Swizzle 15 ml PO BID 03/04/25 03/04/25 Saccharomyces boulardii 250 mg 250 mg PO DAILY 03/04/25 03/04/25 capsule bupropion HCl 150 mg 24 hr tablet, 150 mg PO QAM 03/04/25 03/04/25 extended release donepezil 10 mg disintegrating 10 mg PO QAM 03/04/25 03/04/25 tablet metoprolol succinate 50 mg 50 mg PO QAM 03/04/25 03/04/25 tablet,extended release 24 hr pramoxine 1 % topical cream 1 applic topical UD 03/04/25 03/04/25 (CeraVe Itch Relief) Results & Data (ED) Vital Signs Vital Signs - 24 hr 03/04/25 13:22 03/04/25 13:22 03/04/25 13:31 Temperature 36.4 C L Temperature Source Temporal Artery Scan Pulse Rate 92 H 73 Pulse Rate [Apical] Respiratory Rate 20 20 Respiratory Effort / Characteristics Non-Labored Spontaneous Respiratory Depth Normal Respiratory Pattern Regular Blood Pressure 147/81 H Blood Pressure [Right Arm] Blood Pressure Mean 103 Blood Pressure Mean [Right Arm] Blood Pressure Position Sitting Pulse Oximetry 96 97 97 Oxygen Delivery Method Room Air Room Air Room Air Sepsis Recent Fever Within 48 Hours No Sepsis New/Unexplained Change in Mental Status N/A Sepsis Action Taken by Nursing No Action Required 03/04/25 13:35 03/04/25 13:49 03/04/25 15:04 Temperature Temperature Source Pulse Rate 75 Pulse Rate [Apical] 79 88 Respiratory Rate 18 20 Respiratory Effort / Characteristics Non-Labored Respiratory Depth Normal Normal Respiratory Pattern Blood Pressure Blood Pressure [Right Arm] 147/81 H 141/73 H Blood Pressure Mean Blood Pressure Mean [Right Arm] 103 95 Blood Pressure Position Pulse Oximetry 95 95 Oxygen Delivery Method Room Air Room Air Sepsis Recent Fever Within 48 Hours Sepsis New/Unexplained Change in Mental Status Sepsis Action Taken by Nursing 03/04/25 16:07 03/04/25 17:05 Temperature Temperature Source Pulse Rate Pulse Rate [Apical] 76 79 Respiratory Rate 20 18 Respiratory Effort / Characteristics Respiratory Depth Normal Normal Respiratory Pattern Blood Pressure Blood Pressure [Right Arm] 117/92 152/97 H Blood Pressure Mean Blood Pressure Mean [Right Arm] 100 115 Blood Pressure Position Pulse Oximetry 96 94 Oxygen Delivery Method Room Air Room Air Sepsis Recent Fever Within 48 Hours Sepsis New/Unexplained Change in Mental Status Sepsis Action Taken by Nursing Laboratory Data 03/04/25 13:00 03/04/25 13:00 Lab Results 03/04/25 03/04/25 03/04/25 Range/Units 13:00 13:33 14:03 WBC 5.95 (4.8-10.8) K/ul RBC 3.52 L (4.70-6.10) M/uL Hgb 12.8 L (14.0-18.0) g/dl Hct 38.0 L (42.0-52.0) % MCV 108.0 H (80.0-100.0) fL MCH 36.4 H (25.0-34.0) pg MCHC 33.7 (32.0-36.0) g/dL RDW Std Deviation 56.3 H (36.4-46.3) fL RDW Coeff of Anny 14.2 (11.5-14.5) % Plt Count 138 (130-400) K/uL MPV 10.2 (9.4-12.4) fL Immature Gran % (Auto) 0.7 % Neut % (Auto) 73.3 % Lymph % (Auto) 15.5 % [place] % (Auto) 9.7 % Eos % (Auto) 0.5 % Baso % (Auto) 0.3 % Neut # (Auto) 4.36 (1.40-6.50) K/uL Lymph # (Auto) 0.92 L (1.20-3.40) K/uL [place] # (Auto) 0.58 (0.11-0.59) K/uL Eos # (Auto) 0.03 (0.00-0.50) K/uL Baso # (Auto) 0.02 (0.00-0.20) K/uL Immature Gran # (Auto) 0.04 (0.01-0.20) K/uL PT 10.9 (9.0-12.0) Seconds INR 1.0 (0.9-1.1) APTT 28 (21-31) Seconds PTT Ratio 1.0 Sodium 143 (136-145) mmol/L Potassium 4.1 (3.5-5.1) mmol/L Chloride 105 (98-107) mmol/L Carbon Dioxide 32 (21-32) mmol/L Anion Gap 6 (3-11) BUN 48 H (6-23) mg/dl Creatinine 2.21 H (0.6-1.4) mg/dl Est Cr Clr Drug Dosing 24.9 ml/min eGFR 29.38 BUN/Creatinine Ratio 21.7 H (10-20) Glucose 124 H (70-99(Fasting)) mg/dl Calcium 9.7 (8.6-10.3) mg/dl Magnesium 2.5 H (1.7-2.4) mg/dl Total Bilirubin 0.7 (0.2-1.0) mg/dl AST 21 (13-39) U/L ALT 19 (7-52) U/L Alkaline Phosphatase 182 H (34-104) U/L Troponin I High Sens 14.2 (0-20) pg/ml Total Protein 7.1 (6.0-8.3) gm/dl Albumin 4.1 (3.4-5.0) gm/dl Globulin 3.0 (2.5-4.0) gm/dl Albumin/Globulin Ratio 1.4 (0.9-2) Lipase 108 H (11-82) U/L POC Stool Occult Blood Positive A (Negative) Blood Type A Positive Antibody Screen NEGATIVE Administered Medications Discontinued Medications Sodium Chloride (Nss) 250 mls @ 999 mls/hr IV .Q16M ONE Stop: 03/04/25 13:46 Last Infusion: 03/04/25 14:25 Dose: Infused Documented By: Admin: 03/04/25 13:35 Dose: 999 mls/hr Documented By: BRIDGER Pantoprazole Sodium (Protonix) 40 mg in 10 mls @ 5 mls/min IV NOW STA Stop: 03/04/25 17:45 Last Admin: 03/04/25 17:56 Dose: 5 mls/min Documented By: BRIDGER Oxymetazoline HCl (Oxymetazoline 0.05% 30 Ml Btl) Confirm Administered Dose 150 sprays .ROUTE .STK-MED ONE Stop: 03/04/25 13:28 Last Admin: 03/04/25 13:33 Dose: 2 sprays Documented By: MMG Imaging Data Radiologist's Impression: Chest X-Ray 03/04/25 13:31 XR chest 1V portable CLINICAL HISTORY: abd pain, weakness COMPARISON STUDY: 07/25/2024 FINDINGS: Stable CABG. Stable prominent cardiomegaly with mild pulmonary vascular congestion. Inspiration is shallow which limits the exam. No effusion, consolidation, or pneumothorax seen. IMPRESSION: Stable exam. No acute findings seen. ACT 112: Negative or not required by law. Electronically signed by: Eddi Capone M.D. 03/04/2025 1:[address] 03/04/25 13:31 CT head/brain wo con CLINICAL HISTORY: weakness, fall. TECHNIQUE: Multiple axial CT images of the head were obtained without contrast. A dose lowering technique was utilized adhering to the principles of ALARA. COMPARISON: 05/04/2024 FINDINGS: There is stable prominence of the ventricles out of proportion to the sulci which could represent normal pressure hydrocephalus or cerebral atrophy. Stable mild chronic small vessel ischemic changes. No intracranial hemorrhage seen. No mass effect or midline shift. Stable mild globus pallidus calcification, unremarkable in this age group. No skull fracture pain. Visualized paranasal sinuses are clear. There is opacification of some of the mastoid air cells. IMPRESSION: No acute findings. ACT 112: Negative or not required by law. The above report was generated using voice recognition software. It may contain grammatical, syntax or spelling errors. Electronically signed by: Eddi Capone M.D. 03/04/2025 2:56 PM Abdomen/Pelvis CT 03/04/25 14:[address] WITHOUT CONTRAST CT DOSE: 2725.99 mGy.cm HISTORY: Acute pelvic pain status post fall Fall on buttocks, rectal bleed, abd pain, weakness TECHNIQUE: Multiaxial CT images of the abdomen and pelvis were performed without contrast. A dose lowering technique was utilized adhering to the principles of ALARA. COMPARISON STUDY: 05/04/2024 FINDINGS: Cardiomegaly with median sternotomy, extensive coronary artery calcifications with probable CABG. Fusiform dilation of the ascending thoracic aorta, 4.2 cm. Mild right hemidiaphragmatic elevation. Mild bibasilar atelectasis. No pneumatosis or pneumoperitoneum. Unenhanced spleen, gallbladder and adrenal glands are within normal limits. 1.5 cm cystic lesion of the pancreatic tail previously measured 1.2 cm. Unremarkable liver. No hydronephrosis. Mild nonspecific bilateral perinephric stranding. No hydronephrosis. There is marked prostamegaly. Urinary bladder wall thickening with partial distention. Atherosclerosis of the aorta without aneurysm. Colonic diverticulosis without acute diverticulitis. Circumferential wall thickening is noted within the duodenum and within a few loops of jejunum. Normal appendix. Right hip arthroplasty. Chronic bilateral L5 pars defects. No acute fracture identified. IMPRESSION: 1. No acute posttraumatic intra-abdominal or intrapelvic abnormality identified. 2. No acute fracture identified. 3. No bowel obstruction or pneumoperitoneum. 4. Wall thickening of the duodenum and proximal jejunum favors a nonspecific infectious or inflammatory process. ACT 112: Negative or not required by law. The above report was generated using voice recognition software. It may contain grammatical, syntax or spelling errors. Electronically signed by: David Stewart M.D. 03/04/2025 3:13 PM Discharge Plan Visit Data Chief Complaint: Weakness ED Provider: Gonzales Quinn ED Midlevel Provider: Belle Stanley Discharge Problem: Weakness, Occult blood in stools, Acute kidney injury superimposed on stage 3b chronic kidney disease, Acute anterior epistaxis Patient Disposition: Admitted As Inpatient Condition: Fair Discharge Instructions Interventions: ED Discharge Assessment Last Done: 03/04/25 17:56
[2025-03-04] MEDS: OXYMETAZOLINE 0.05% 30 ML BTL ONE (13:33)
[2025-03-04] MEDS: SODIUM CHLORIDE 0.9% 250 ML IV ONE (13:35)
[2025-03-04 13:56] LABS: Basophils # (auto) 0.02 K/uL (0.00-0.20); Basophils % (auto) 0.3 %; Eosinophils # (auto) 0.03 K/uL (0.00-0.50); Eosinophils % (auto) 0.5 %; Hemoglobin 12.8 g/dl (14.0-18.0); Immature Granulocytes # (auto) 0.04 K/uL (0.01-0.20); Immature Granulocytes % (auto) 0.7 %; Lymphocytes # (auto) 0.92 K/uL (1.20-3.40); Lymphocytes % (auto) 15.5 %; Mean Corpuscular Hemoglobin 36.4 pg (25.0-34.0); Mean Corpuscular Hgb Conc 33.7 g/dL (32.0-36.0); Mean Platelet Volume 10.2 fL (9.4-12.4); Monocytes # (auto) 0.58 K/uL (0.11-0.59); Monocytes % (auto) 9.7 %; Neutrophils # (auto) 4.36 K/uL (1.40-6.50); Neutrophils % (auto) 73.3 %; Platelet Count 138 K/uL (130-400); RDW Coefficient of Variation 14.2 % (11.5-14.5); RDW Standard Deviation 56.3 fL (36.4-46.3); Red Blood Count 3.52 M/uL (4.70-6.10); White Blood Count 5.95 K/ul (4.8-10.8)
--- NOTE | 2025-03-04 13:59 | XRay Report ---
XR chest 1V portable CLINICAL HISTORY: abd pain, weakness COMPARISON STUDY: 07/25/2024 FINDINGS: Stable CABG. Stable prominent cardiomegaly with mild pulmonary vascular congestion. Inspira tion is shallow which limits the exam. No effusion, consolidation, or pneumothorax seen. IMPRESSION: Stable exam. No acute findings seen. ACT 112: Negative or not required by law. Electronically signed by: Eddi Capone M.D. 03/04/2025 1:58 PM
[2025-03-04 14:18] LABS: Albumin Globulin Ratio 1.4 (0.9-2); Albumin Level 4.1 gm/dl (3.4-5.0); BUN Creatinine Ratio 21.7 (10-20); Bilirubin,Total 0.7 mg/dl (0.2-1.0); Calcium 9.7 mg/dl (8.6-10.3); Creatinine Clr Calc Pharmacy 24.9 ml/min; Magnesium 2.5 mg/dl (1.7-2.4); Potassium 4.1 mmol/L (3.5-5.1); Total Protein 7.1 gm/dl (6.0-8.3)
[2025-03-04 14:19] LABS: Troponin I High Sensitivity 14.2 pg/ml (0-20)
[2025-03-04 14:44] LABS: Partial Thromboplastin Time 28 Seconds (21-31); Prothrombin Time 10.9 Seconds (9.0-12.0)
--- NOTE | 2025-03-04 14:57 | CT Scan Report ---
CT head/brain wo con CLINICAL HISTORY: weakness, fall. TECHNIQUE: Multiple axial CT images of the head were obtained without contrast. A dose lowering tech nique was utilized adhering to the principles of ALARA. COMPARISON: 05/04/2024 FINDINGS: There is stable prominence of the ventricles out of proportion to the sulci which could rep resent normal pressure hydrocephalus or cerebral atrophy. Stable mild chronic small vessel ischemic c hanges. No intracranial hemorrhage seen. No mass effect or midline shift. Stable mild globus pallidus calcification, unremarkable in this age group. No skull fracture pain. Visualized paranasal sinuses are clear. There is opacification of some of the mastoid air cells. IMPRESSION: No acute findings. ACT 112: Negative or not required by law. The above report was generated using voice recognition software. It may contain grammatical, syntax o r spelling errors. Electronically signed by: Eddi Capone M.D. 03/04/2025 2:56 PM
--- NOTE | 2025-03-04 15:15 | CT Scan Report ---
ABDOMEN AND PELVIS CT WITHOUT CONTRAST CT DOSE: 2725.99 mGy.cm HISTORY: Acute pelvic pain status post fall Fall on buttocks, rectal bleed, abd pain, weakness TECHNIQUE: Multiaxial CT images of the abdomen and pelvis were performed without contrast. A dose lo wering technique was utilized adhering to the principles of ALARA. COMPARISON STUDY: 05/04/2024 FINDINGS: Cardiomegaly with median sternotomy, extensive coronary artery calcifications with probable CABG. Fusiform dilation of the ascending thoracic aorta, 4.2 cm. Mild right hemidiaphragmatic elevat ion. Mild bibasilar atelectasis. No pneumatosis or pneumoperitoneum. Unenhanced spleen, gallbladder and adrenal glands are within normal limits. 1.5 cm cystic lesion of t he pancreatic tail previously measured 1.2 cm. Unremarkable liver. No hydronephrosis. Mild nonspecifi c bilateral perinephric stranding. No hydronephrosis. There is marked prostamegaly. Urinary bladder w all thickening with partial distention. Atherosclerosis of the aorta without aneurysm. Colonic divert iculosis without acute diverticulitis. Circumferential wall thickening is noted within the duodenum a nd within a few loops of jejunum. Normal appendix. Right hip arthroplasty. Chronic bilateral L5 pars defects. No acute fracture identified. IMPRESSION: 1. No acute posttraumatic intra-abdominal or intrapelvic abnormality identified. 2. No acute fracture identified. 3. No bowel obstruction or pneumoperitoneum. 4. Wall thickening of the duodenum and proximal jejunum favors a nonspecific infectious or inflammato ry process. ACT 112: Negative or not required by law. The above report was generated using voice recognition software. It may contain grammatical, syntax o r spelling errors. Electronically signed by: David Stewart M.D. 03/04/2025 3:13 PM
--- NOTE | 2025-03-04 15:31 | Emergency Department Note ---
ED Visit Note I was consulted by the Advanced Practice Provider. I personally made/approved the management plan and take responsibility for the patient management. I performed a substantive portion of the visit. This includes the aspects of: [-I independently interpreted the following studies:][Chest x-ray does not show pneumonia or CHF] Patient presents with weakness, nasal bleeding and some blood in his stool. His hemoglobin was low but improved compared to some more recent testing. Brain CT imaging did not show any acute bleed or mass effect. Abdominal and pelvis CT showed a potential enteritis, nothing surgical. The patient is weak, he is having rectal bleeding, he has been having nasal bleeding, he is having too much difficulty to be discharged home. He did apparently fall out of a chair yesterday. Admission/observation is warranted. The patient may require strengthening/rehab once deemed more medically stable. .
--- NOTE | 2025-03-04 15:58 | History & Physical Report ---
Date of Service March 04, 2025 Assessment & Plan (1) Blood in stool: (2) Generalized weakness: Plan: Mr. 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 difficile diarrhea, BPH, primary osteoarthritis of both knees and gouty arthropathy who presented to the ED via EMS for evaluation of generalized weakness and blood in his stool. Labs personally reviewed. FOBT positive; However, Hgb stable at 12.8 which is improved from his baseline Hgb of 9-12. CTAP with wall thickening of the duodenum and proximal jejunum (+/- inflammatory). Known history of small bowel AVMs with history of argon plasma coagulation and clip placement. Possible upper GI bleed. No indication to transfuse at this time given Hgb>8. Start IV PPI BID. GI consult for possible EGD. Will keep NPO after MN in anticipation for possible procedure tomorrow. MCV>100 therefore will check vitamin B12 and folate levels in the AM. Follow repeat H/H around 8PM. Suspect generalized weakness is multifactorial due to overall physical deconditioning ISO possible upper GI bleed and progressive Parkinson's disease. Obtain PT/OT evals. Uses rollator to assist with ambulatio n. Shuffling gait in the setting of Parkinson's disease. Skin tear noted on LEFT forearm from recent slip out of his recliner yesterday. Appreciate inpatient wound care consult. (3) Acute kidney injury superimposed on stage 3b chronic kidney disease: Plan: Noted to have an DORYS with Cr of 2.21 on admission. Baseline Cr around 1.6-2.0 per chart review. Suspect due to recent decline in oral intake ISO generalized weakness. Hold off on additional IVF for now due to history of HFpEF and risk of volume overload. Hold WHARF ATTENDANT diuretics for now. Encourage oral intake. Avoid nephrotoxic agents when able. Monitor renal function closely with daily labs and renally dose medications when able. (4) Oral thrush: Plan: Noted on exam. Possibly related to poor oral hygiene generalized weakness. Start nystatin swish/swallow and continue to monitor for any improvement. Magic Mouthwash PRN for oral pain. (5) Parkinson's disease: Plan: Parkinson's disease with related gait instability and dementia. Follows with neurologist through [facility] in [place], [place]. Reportedly having increased hallucinations per family. Likely related to above. Continue WHARF ATTENDANT donepezil and amantadine. Utilize delirium prevention measures: raising blinds during the day, closing at night, frequent re-orientation, contact with family/friends, explaining procedures/nursing care measures prior to physical contact, correct any hearing and visual impairments. Fall precautions. OOB with assistance only. PT/OT evals pending as per above. (6) Paroxysmal A-fib: Plan: Follows with Dr. Benz of [facility] cardiology as an outpatient. Continue WHARF ATTENDANT Toprol XL. Not on anticoagulation due to chronic anemia and bleeding risk ISO underlying small bowel AVMs. (7) (HFpEF) heart failure with preserved ejection fraction: Plan: Holding WHARF ATTENDANT diuretics for now as per above. Follow daily weights. Strict I&Os. Closely monitor for signs/symptoms of volume overload. (8) DM type 2 (diabetes mellitus, type 2): Plan: Hgb A1c 8.3% about 9 months ago. Repeat Hgb A1c in the AM. Hold in home nanny, SSI protocol while inpatient. Monitor BSG checks ACHS. Other Chronic Medical Conditions: CAD with history of CABG x 3 - Continue statin. Anxiety/Depression - Continue WHARF ATTENDANT psychiatric medications. COPD - Not signs/symptoms of an acute exacerbation. Continue baseline 2L NC HS (add humification 2/2 recent nose bleed). DVT Prophylaxis: SCDs/TEDs only ISO possible upper GI bleed. Code Status: FULL CODE - Per discussion with patient's and daughter at bedside in the ED. PCP: Michael Hinton MD Disposition: Admit to med/telemetry for further inpatient evaluation and management. Patient seen in collaboration with Dr. Dale. Please see addendum. I spent a total of 68 minutes coordinating, documenting, and providing care for this patient excluding time spent in the performance of separately billed services or time spent by another provider/QHP. This included personally reviewing all current laboratories and imaging studies, medical reconciliation, outpatient chart review and discussion with specialists. This chart was completed in part utilizing Speech Voice Recognition Software. Grammatical errors, random word insertions, pronoun errors, and incomplete sentences are an occasional consequence of this system due to software limitations, ambient noise, and hardware issues. Any formal questions or concerns about the content, text, or information contained within the body of this dictation should be directly addressed to the provider for clarification. History of Present Illness Chief Complaint: Nosebleed, generalized weakness and blood in stool Primary Care Provider: Michael Hinton MD Mr. 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 difficile diarrhea, BPH, primary osteoarthritis of both knees and gouty arthropathy who presented to the ED via EMS for evaluation of generalized weakness and blood in his stool. History obtained from patient's family at bedside, discussion with ED provider and extensive chart review. Patient seen at bedside in the ED with Dr. Dale. Patient is significantly [place] and did not have his hearing aids available therefore history was directly obtained from the patient's and daughter. Notable worsening of generalized weakness since this past weekend. Has had 2 incidences over the past few days where he has slid out of his recliner that he sleeps in routinely, most recently as of yesterday. He required at two-person assist both times in order to be placed back in his recliner which is more help than he typically needs. It was also noted that he had a nosebleed Monday evening which did initially improve with applied pressure however then it started to bleed again this morning. His home health nurse through [facility] was able to stop the bleed earlier today with nasal packing and he has not had any recurrence. His noticed some clarita red blood in his stool this mo rning. Reportedly has had a couple bouts of blood in his stool over the past few days. 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 Labs personally reviewed. FOBT positive; however, Hgb stable at 12.8 which is improved from his baseline Hgb of 9-12. Electrolytes WNL. Cr 2.21 which is slightly bumped from his baseline Cr of around 1.6-2.0 in the setting of known CKD stage IIIb. Appetite has been somewhat decreased with poor oral intake as of lately. He has been complaining of a sore tongue and mouth over the past week. Has been using Magic Mouthwash for this without much relief. Daughter raises concern for thrush which he has had before. UA without gross evidence of infection. No reported fevers, chills, chest pain, SOB or abdominal pain. No changes in bowel or urinary habits. Uses rollator to assist with ambulation. Shuffling gait in the setting of Parkinson's disease. No prior smoking history. No alcohol use. No recreational drug use. Did not take any of his medications today. Allergies Allergy/AdvReac Type Severity Reaction Status Date / Time NSAIDS (Non-Steroidal Allergy Intermediate Rash Verified 11/18/24 08:04 Anti-Inflamma YONATAN Inhibitors AdvReac Intermediate Cough Verified 11/14/24 15:33 carbidopa AdvReac Intermediate constipatio Verified 11/14/24 15:33 n levodopa AdvReac Intermediate constipatio Verified 11/14/24 15:33 n Home Medications Medication Instructions Recorded Confirmed Type amantadine HCl 100 mg capsule 100 mg PO QAM 05/22/20 03/04/25 History dutasteride 0.5 mg capsule 0.5 mg PO QAM 01/24/23 03/04/25 History atorvastatin 40 mg tablet 40 mg PO QAM 01/08/24 03/04/25 History allopurinol 300 mg tablet 300 mg PO QAM 07/25/24 03/04/25 History escitalopram oxalate 20 mg tablet 20 mg PO QAM 08/15/24 03/04/25 History torsemide 20 mg tablet 40 mg PO QAM 08/15/24 03/04/25 History spironolactone 25 mg tablet 12.5 mg PO QAM 10/02/24 03/04/25 History empagliflozin 10 mg tablet 10 mg PO QAM 11/05/24 03/04/25 History (Jardiance) Magic Swizzle 15 ml PO BID 03/04/25 03/04/25 History Saccharomyces boulardii 250 mg 250 mg PO DAILY 03/04/25 03/04/25 History capsule bupropion HCl 150 mg 24 hr tablet, 150 mg PO QAM 03/04/25 03/04/25 History extended release donepezil 10 mg disintegrating 10 mg PO QAM 03/04/25 03/04/25 History tablet metoprolol succinate 50 mg 50 mg PO QAM 03/04/25 03/04/25 History tablet,extended release 24 hr pramoxine 1 % topical cream 1 applic topical UD 03/04/25 03/04/25 History (CeraVe Itch Relief) Past Med/Surg History Problem List DM type 2 (diabetes mellitus, type 2) Oral thrush (HFpEF) heart failure with preserved ejection fraction Acute kidney injury superimposed on stage 3b chronic kidney disease Parkinson's disease Blood in stool Deformity of foot Urticaria Loss of protective sensation of skin of foot Bilateral high frequency sensorineural hearing loss Encounter for wound care Tachycardia (Acute) Edema of left forearm (Acute) Venous stasis ulcers of both lower extremities (Acute) Chronic venous insufficiency Abnormal ankle brachial index Acute exacerbation of chronic heart failure Recurrent colitis due to Clostridium difficile (Acute) Acute lower GI bleeding (Acute) Anemia (Acute) CHF (congestive heart failure) (Acute) Elevated brain natriuretic peptide (BNP) level (Acute) Atrial fibrillation with rapid ventricular response (Acute) Generalized weakness (Acute) Acute GI bleeding (Acute) Anemia (Acute) Transfusion-dependent anemia Elevated lipase Melena Acute on chronic anemia CKD (chronic kidney disease) (Acute) Symptomatic anemia (Acute) Acute GI bleeding (Acute) Blood in both ear canals Osteoarthritis of right knee Bilateral chronic serous otitis media Generalized weakness (Acute) Diarrhea (Acute) Ambulatory dysfunction (Acute) Anemia Paroxysmal A-fib (Acute) Acute heart failure with preserved ejection fraction (HFpEF) Lumbar transverse process fracture Hypovolemic shock Encounter for pre-operative examination Colon polyps Acute kidney injury superimposed on CKD Heme positive stool Acute blood loss anemia Symptomatic anemia (Acute) Acute hypotension (Acute) Acute GI bleeding (Acute) Status post fall Chronic heart failure with preserved ejection fraction (HFpEF) Hypervolemia (Acute) ETD (eustachian tube dysfunction) Encounter for pre-operative examination Immunosuppressed status Dental infection Generalized weakness (Acute) Congestive heart failure (Acute) Hypoxia (Acute) Hematuria Electrolyte imbalance Diarrhea Coronary artery disease COPD (chronic obstructive pulmonary disease) (Acute) Hypomagnesemia (Acute) DVT prophylaxis Hypomagnesemia CHF (congestive heart failure) (Acute) Acute respiratory failure with hypoxia SOB (shortness of breath) History of total right hip replacement 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 Dementia (Acute) Sensorineural hearing loss (SNHL) of both ears S/P triple vessel bypass (2011) [facility] [place]. [place]; f/u Dr. Benz, [facility] Moderate mitral regurgitation f/u Dr. Benz, [facility] 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Acute) Primary parkinsonism (Acute) GERD (gastroesophageal reflux disease) HTN (hypertension) CKD (chronic kidney disease) stage 3, GFR 30-59 ml/min (Acute) Diabetes type 2, controlled Dyslipidemia BPH (benign prostatic hyperplasia) Medical History GI bleed 09/2023 Anemia 09/2023 inpt at [facility] Atrial fibrillation f/u Dr. Benz, [facility] Eliquis on hold due to anemia History of blood transfusion 10/06/23- was admitted at [facility], low blood count, reason for upcoming procedure 03/24/23, "he's bleeding somewhere, has a low blood count, not sure where losing it from"; f/u Dr. 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 History of pneumonia end of 01/2023, found in lt. 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 Parkinson's>no current issues Diastolic dysfunction Lower extremity edema HUNTER (iron deficiency anemia) Ambulatory dysfunction Seasonal allergies Thoracic aortic aneurysm sx in 2011, at [facility] Lumbar spondylosis MUSTAFA (dyspnea on exertion) inh prn Coronary aneurysm (2011) Per cardio records CAD with CABG in 2011 (CHILDS to LAD and exclusion of RCA aneurysm Adverse reaction to anesthetic agent 2011 w/hip replacement>hallucinated for 3 days Orthostatic hypotension (07/2019) Peripheral arterial disease Recurrent cellulitis of lower extremity reason for daily cephalexin Anxiety CAD (coronary artery disease) history of CABG (CHILDS to LAD and exclusion of a right coronary artery aneurysm), 2011 at [facility]. Surgical History History of carpal tunnel release of both wrists History of esophagogastroduodenoscopy (EGD) Hx of colonoscopy Hx of bilateral cataract extraction History of neck surgery [facility] w/Dr. 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 foot H/O eye surgery numerous when he was young Family History Unknown No problems noted. Father Hypertension, Onset Age: 40 at 40 Mother Hypertension COPD (chronic obstructive pulmonary disease) Diabetes Brother Allergies Asthma Grandmother Diabetes Denies family history of Prostate cancer Hearing loss No family history of adverse response to anesthesia No family history of bleeding disorder Heart disease Cancer Stroke Social History Smoking Status: Never smoker Second Hand Exposure: No; Do You Dip or Chew Tobacco: No; Hx Alcohol Use: No Hx Substance Use: No Preferred Language: Hungarian Communication Ability: Effective Communication Ability Comment: Hard of hearing Communication Tools: Facial Expression, Physical Gestures and Lip Movement/Reading Visual Impairment: No Limitations Hearing Ability: Use of Hearing Aid Group [employer] Vp Required: Yes Beliefs That Will Affect Care: None marital status: Current Living Situation: Spouse Current Living Situation Comment: Lives at home with spouse current occupational status: retired How many Children do You have: 2 Feels Safe at Home: Yes Diet: diabetic and low salt caffeine: Yes during the past year weight has: remained stable Assistive Devices: Oxygen - at Night Review of Systems Review of Systems: At least ten systems reviewed and negative, except as noted in the HPI. Physical Exam Physical Exam: Please refer to Dr. Dale's addendum for physical examination findings. Results & Data Results & Data Vital Signs (Past 12 Hours) Vital Signs Temp Pulse Pulse Resp BP BP Pulse Ox 03/04/25 15:04 88 20 141/73 H 95 03/04/25 13:49 79 18 147/81 H 95 03/04/25 13:35 75 03/04/25 13:31 73 20 97 03/04/25 13:22 97 03/04/25 13:22 36.4 C L 92 H 20 147/81 H 96 O2 Del Method 03/04/25 15:04 Room Air 03/04/25 13:49 Room Air 03/04/25 13:35 03/04/25 13:31 Room Air 03/04/25 13:22 Room Air 03/04/25 13:22 Room Air Laboratory Results Short CBC 03/04/25 Range/Units 13:00 WBC 5.95 (4.8-10.8) K/ul Hgb 12.8 L (14.0-18.0) g/dl Hct 38.0 L (42.0-52.0) % Plt Count 138 (130-400) K/uL BMP 03/04/25 13:00 Sodium 143 Potassium 4.1 Chloride 105 Carbon Dioxide 32 BUN 48 H Creatinine 2.21 H Glucose 124 H Calcium 9.7 Liver Function 03/04/25 Range/Units 13:00 Total Bilirubin 0.7 (0.2-1.0) mg/dl AST 21 (13-39) U/L ALT 19 (7-52) U/L Alkaline Phosphatase 182 H (34-104) U/L Albumin 4.1 (3.4-5.0) gm/dl Diagnostic Findings Chest X-Ray 03/04/25 13:31 XR chest 1V portable CLINICAL HISTORY: abd pain, weakness COMPARISON STUDY: 07/25/2024 FINDINGS: Stable CABG. Stable prominent cardiomegaly with mild pulmonary vascular congestion. Inspiration is shallow which limits the exam. No effusion, consolidation, or pneumothorax seen. IMPRESSION: Stable exam. No acute findings seen. ACT 112: Negative or not required by law. Electronically signed by: Eddi Capone M.D. 03/04/2025 1:[address] 03/04/25 13:31 CT head/brain wo con CLINICAL HISTORY: weakness, fall. TECHNIQUE: Multiple axial CT images of the head were obtained without contrast. A dose lowering technique was utilized adhering to the principles of ALARA. COMPARISON: 05/04/2024 FINDINGS: There is stable prominence of the ventricles out of proportion to the sulci which could represent normal pressure hydrocephalus or cerebral atrophy. Stable mild chronic small vessel ischemic changes. No intracranial hemorrhage seen. No mass effect or midline shift. Stable mild globus pallidus calcification, unremarkable in this age group. No skull fracture pain. Visualized paranasal sinuses are clear. There is opacification of some of the mastoid air cells. IMPRESSION: No acute findings. ACT 112: Negative or not required by law. The above report was generated using voice recognition software. It may contain grammatical, syntax or spelling errors. Electronically signed by: Eddi Capone M.D. 03/04/2025 2:56 PM Abdomen/Pelvis CT 03/04/25 14:[address] WITHOUT CONTRAST CT DOSE: 2725.99 mGy.cm HISTORY: Acute pelvic pain status post fall Fall on buttocks, rectal bleed, abd pain, weakness TECHNIQUE: Multiaxial CT images of the abdomen and pelvis were performed without contrast. A dose lowering technique was utilized adhering to the principles of ALARA. COMPARISON STUDY: 05/04/2024 FINDINGS: Cardiomegaly with median sternotomy, extensive coronary artery calcifications with probable CABG. Fusiform dilation of the ascending thoracic aorta, 4.2 cm. Mild right hemidiaphragmatic elevation. Mild bibasilar atelectasi s. No pneumatosis or pneumoperitoneum. Unenhanced spleen, gallbladder and adrenal glands are within normal limits. 1.5 cm cystic lesion of the pancreatic tail previously measured 1.2 cm. Unremarkable liver. No hydronephrosis. Mild nonspecific bilateral perinephric stranding. No hydronephrosis. There is marked prostamegaly. Urinary bladder wall thickening with partial distention. Atherosclerosis of the aorta without aneurysm. Colonic diverticulosis without acute diverticulitis. Circumferential wall thickening is noted within the duodenum and within a few loops of jejunum. Normal appendix. Right hip arthroplasty. Chronic bilateral L5 pars defects. No acute fracture identified. IMPRESSION: 1. No acute posttraumatic intra-abdominal or intrapelvic abnormality identified. 2. No acute fracture identified. 3. No bowel obstruction or pneumoperitoneum. 4. Wall thickening of the duodenum and proximal jejunum favors a nonspecific infectious or inflammatory process. ACT 112: Negative or not required by law. The above report was generated using voice recognition software. It may contain grammatical, syntax or spelling errors. Electronically signed by: David Stewart M.D. 03/04/2025 3:13 PM Medications Administered Discontinued Medications Sodium Chloride (Nss) 250 mls @ 999 mls/hr IV .Q16M ONE Stop: 03/04/25 13:46 Last Infusion: 03/04/25 14:25 Dose: Infused Documented By: Admin: 03/04/25 13:35 Dose: 999 mls/hr Documented By: BRIDGER Oxymetazoline HCl (Oxymetazoline 0.05% 30 Ml Btl) Confirm Administered Dose 150 sprays .ROUTE .STK-MED ONE Stop: 03/04/25 13:28 Last Admin: 03/04/25 13:33 Dose: 2 sprays Documented By: BRIDGER Code Status & VTE Plan Code Status FULL CODE Supervising Physician Co-Signing Physician Notes Presents with increasing weakness, blood in stool and epistaxis History provided by and daughter. Patient uses hearing aids and batteries are Has had 2 episodes of slipping out of his reclining chair to the floor while sleeping reported hallucination. Daughter reports patient has Lewy Body Dementia and Parkinson General: Elderly man in no distress Eyes: PERRL, conjunctivae normal, EOM intact bilaterally ENMT: Old blood on nares, +hearing deficits Respiratory: Normal respiratory effort, no respiratory distress, lungs clear to auscultation, no crackles and no wheezes Cardiovascular: Irregularly irregular, +murmur Gastrointestinal (Abdomen): Abdomen is not distended, soft, non-tender to palpation, no guarding, no palpable hepatosplenomegaly, normal bowel sounds Musculoskeletal: +pedal edema (R>L, chronic) Skin: Dressing over skin tear on left forearm Neurologic: Alert, limited exam due to hearing deficits Lab notable for Hb of 12.8, MCV 108, Cr 2.21 +Stool occult blood Abd CT noted wall thickening of duodenum and proximal jejunum Possible Upper GI bleed based on hx and CT findings IV PPI BID NPO PMN GI consult Has macrocytic anemia Monitor Hb. Check B12 and folate Fall precautions PT/OT eval Hold diuretics today and resume in AM Other plans as detailed by Eli Ayon PA-C I spent a total of 40 minutes coordinating, documenting and providing care for this patient excluding time spent in performance of separately billed services (5) Parkinson's disease Dyskinesia presence: unspecified whether dyskinesia Fluctuating manifestations: unspecified whether manifestations fluctuate Qualified Code(s): G20.A1 - Parkinson's disease without dyskinesia, without mention of fluctuations (7) (HFpEF) heart failure with preserved ejection fraction Heart failure chronicity: chronic Qualified Code(s): I50.32 - Chronic diastolic (congestive) heart failure (8) DM type 2 (diabetes mellitus, type 2) Diabetes mellitus terminal manager insulin use: without terminal manager use Diabetes mellitus complication status: without complication Qualified Code(s): E11.9 - Type 2 diabetes mellitus without complications
[2025-03-04 16:27] LABS: Appearance Urine Clear (Clear); Bacteria Urine Automated None Seen (None Seen); Bilirubin Urine Negative (Negative); Blood Urine Negative (Negative); Cast Urine Automated 0-2 /lpf (0-2); Color Urine Yellow; Epithelial Cell Urine Auto 0-2 /hpf (0-2); Glucose Urine UA 3+ (Negative); Ketones Urine Trace (Negative); Leukocyte Esterase Urine Negative (Negative); Nitrite Urine Negative (Negative); Protein Urine 2+ (Negative); RBC Urine Automated 0-2 /hpf (0-2); Specific Gravity Urine 1.022 (1.000-1.030); Urobilinogen Urine Negative (Negative); WBC Urine Automated 0-5 /hpf (0-5); pH Urine 5.5 (4.5-7.5)
--- NOTE | 2025-03-04 17:41 | Electrocardiogram Report ---
Test Reason : Blood Pressure : */* mmHG Vent. Rate : 68 BPM Atrial Rate : * BPM P-R Int : * ms QRS Dur : 94 ms QT Int : 406 ms P-R-T Axes : * -43 14 degrees QTcB Int : 431 ms Sinus rhythm with PACs Left axis deviation Poor R wave progression, consider anterior TN vs. lead placement vs. LVH Abnormal ECG When compared with ECG of 25-Jul-2024 12:59, No significant change was found Confirmed by Jw Ward ([id number]) on 03/04/2025 5:40:46 PM Referred By: Confirmed By: Jw Ward
[2025-03-04] MEDS: PANTOprazole 40 MG/10 ML SYR IV STA (17:56)
[2025-03-04] MEDS ORDERED: GLUCAGON FOR INJ 1 MG VIAL SQ PRN (17:58)
[2025-03-04] MEDS ORDERED: ONDANSETRON INJ 2 MG/ML 2 ML VIAL IV PRN (17:58)
[2025-03-04] MEDS ORDERED: GLUCOSE 10 TAB/TUBE PO PRN (17:58)
[2025-03-04] MEDS ORDERED: MAGNESIUM HYDROXIDE SUSP 30 ML UDC PO PRN (17:58)
[2025-03-04] MEDS ORDERED: POLYETHYLENE (MIRALAX) 17 GM PACK PO PRN (17:58)
[2025-03-04] MEDS ORDERED: GLUCOSE 40% GEL 15 GM TUBE PO PRN (17:58)
[2025-03-04] MEDS ORDERED: CARBOHYDRATES FOR HYPOGLYCEMIA PO PRN (17:58)
[2025-03-04] MEDS ORDERED: FIRST - Mouthwash BLM 5 ML UDP PO PRN (18:01)
[2025-03-04 19:51] LABS: Hematocrit (blood only) 32.4 % (42.0-52.0); Hemoglobin 11.1 g/dl (14.0-18.0)
[2025-03-04] MEDS: NYSTATIN SUSP 500,000 U/5 ML UDC PO SCH (21:36)
[2025-03-04] MEDS: INSULIN ASPART PER UNIT CHARGE SC SCH (21:36)
--- OUTSIDE RECORDS SUMMARY | 2025-03-05 02:10 | External Medical Summary | Summary of Care ---
Author Name Unknown Organization [facility] Address [address] [place] [address] Phone [phone] Care Team Providers Care Brick Chimney Builder Name Role Phone Serjio Hinton MD Primary Care Provider [phone] Reason for Visit * Reason Comments Follow Up Pt here for eczema, pt was seeing wound clinic and was recommended to use Amlactin. he discontinued use of this and started using Vaseline and CerVe for his lower legs per last office visit w/ Vicky Hoffman. * Evaluate & Treat - Unlimited Visits (Within 10 days (routine)) - Authorized Specialty Diagnoses / Procedures Referred By Bahman akhtar Referred To Contact Dermatology Diagnoses Flexural atopic dermatitis Serjio Hinton MD [address] [place] [address] Phone: tel: fax: Referral ID Status Reason Start Date Expiration Date Visits Requested Visits Authorized [id number] Authorized Specialty Services Required 02/19/2025 [id number] Encounter Details Date Type Department Care Team (Late st Contact Info) Description 03/03/2025 2:15 PM EDT Office Visit Dermatology [place] [facility] [address] [place] [address] Osvaldo Liu MD [address] [place] [address] Seborrheic dermatitis of scalp*; Stasis dermatitis; Skin neoplasm Allergies Active Allergy Reactions Criticality Noted Date Comments Fabiano Inhibitors Cough 06/09/2017 Carbidopa High 08/30/2024 Other Reaction(s): constipation Carbidopa-Levodopa 03/17/2021 Constipation Levodopa High 08/30/2024 Other Reaction(s): constipation Nsaids Rash 05/17/2018 Contraindicated per fac engineer documented as of this encounter (statuses as of 03/04/2025) Medications DIURETIC TITRATION PLAN If no improvement on day 3, contact heart failure managing provider. 1 Each 023 Active Allopurinol 300 MG Oral Tablet (Zyloprim) Take 1 Tablet by mouth in the morning. 90 Tablet 3 5 11:22 AM EDT 024 Active Saccharomyces boulardii 250 MG Oral Capsule (Florastor)Indica tions:Clostridium difficile diarrhea Take 1 Capsule by mouth in the morning and 1 Capsule before bedtime. 90 Capsule 3 024 Active Additional Information Patient taking differently:250 mg OralDaily(Non-Specified), Reported on 03/03/2025 Metoprolol Succinate ER 50 MG Oral Tablet Extended Release 24 Hour (Toprol XL) Take 1 Tablet by mouth in the morning. 90 Tablet 3 5 3:26 PM EDT 024 Active Spironolactone 25 MG Oral Tablet (Aldactone) Take one-half Tablet by mouth in the morning. 45 Tablet 3 5 4:41 PM EST 024 Active Dutasteride 0.5 MG Oral Capsule (Avodart) Take 1 Capsule by mouth in the morning. 90 Capsule 3 5 5:51 PM EDT 024 Active Atorvastatin Calcium 40 MG Oral Tablet (Lipitor)Indicati ons:Dyslipidemia Take 1 Tablet by mouth in the morning. 90 Tablet 3 5 1:44 PM EST 024 Active Empagliflozin 10 MG Oral Tablet (Jardiance) Take 1 Tablet by mouth in the morning. Do not start before October 28, 2024. 90 Tablet 3 4 11:54 AM EST 025 Active buPROPion HCl ER (XL) 150 MG Oral Tablet Extended Release 24 Hour (Wellbutrin XL)Indications:GA D (generalized anxiety disorder) Take 1 Tablet by mouth in the morning. 90 Tablet 3 4 4:25 PM EST 024 Active Torsemide 20 MG Oral Tablet (Demadex)Indicati ons:Paroxysmal atrial fibrillation (HCC),Nonrheumati c mitral valve regurgitation,Cor onary artery disease involving [place] coronary artery of [place] heart without angina pectoris,Stage 3b chronic kidney disease (HCC) Take 2 tablets by mouth daily and as directed for weight gain/fluid 025 Active Amantadine HCl 100 MG Oral Capsule (Symmetrel) Take 1 capsule (100 mg total) by mouth daily . PLEASE SCHEDULE FOLLOW UP APPOINTMENT. [phone] 90 Capsule 1 5 10:05 AM EST 025 Active OneTouch Delica Lancets 33GIndications:Ty pe 2 diabetes mellitus with hemoglobin A1c goal of less than 8.0% (HCC) Use up to 4 times a day 400 Each 3 5 10:58 AM EDT 025 Active OneTouch Verio In Vitro Strip (Glucose Blood)Indications :Type 2 diabetes mellitus with hemoglobin A1c goal of less than 8.0% (HCC) Use up to 4 times a day E11.9 400 Strip 3 5 2:20 PM EDT 025 Active D-Care Glucometer w/Device KitIndications:Ty pe 2 diabetes mellitus with hemoglobin A1c goal of less than 8.0% ([facility]) Use as directed. 1 Kit 5 8:27 AM EDT 025 Active Escitalopram Oxalate 20 MG Oral Tablet (Lexapro) take one tablet by mouth daily in the morning 90 Tablet 3 5 4:55 PM EDT 025 Active Magic Swizzle (Lidocaine-Benadr yl-Maalox) oral solution Swish and spit 15 mL in the morning and 15 mL before bedtime. 90 mL 5 025 Active Donepezil HCl 10 MG Oral Tablet Disintegrating (Aricept Odt) Place 1 Tablet on tongue in the morning. Take with largest meal of the day.. Active CeraVe Itch Relief 1 % External Cream (Pramoxine HCl) Apply topically to affected area. Apply to affected area daily as directed Active Fluocinolone Acetonide Scalp 0.01 % External Oil ([place]-Smoothe/FS Scalp)Indications :Seborrheic dermatitis of scalp Apply to scalp at night. Leave in overnight, then rinse out. Do this daily 118.28 mL 5 025 Active Ketoconazole 2 % External Shampoo (Nizoral)Indicati ons:Seborrheic dermatitis of scalp Lather into scalp three times weekly, then rinse 120 mL 5 025 Active Betamethasone Dipropionate 0.05 % External OintmentIndicatio ns:Stasis dermatitis Apply to rash on legs twice daily for up to 2 weeks at a time 50 g 5 025 Active Betamethasone Dipropionate 0.05 % External OintmentIndicatio ns:Inflamed seborrheic keratosis APPLY TO SKIN LESIONS AND SCALP LESIONS UP TO TWO TIMES A DAY FOR NO LONGER THAN 2 WEEKS AT A TIME FOR ITCH. (THEN TAKE A 2 WEEK BREAK) 45 g 2 4 10:13 AM EST 024 2024 Discontinued documented as of this encounter (statuses as of 03/04/2025) Active Problems Problem Noted Date Diagnosed Date Myelodysplastic syndrome 11/04/2024 Chronic obstructive pulmonary disease 11/04/2024 Type 2 diabetes mellitus wit h diabetic chronic kidney disease 11/04/2024 Recurrent Clostridium difficile diarrhea 024 Assessment & Plan (01/31/2025 2:48 PM EDT): Assessment & Plan (09/02/2024 9:51 PM EST): Symptoms improving Dificid end date Monday Due to starting augmentin for dental infection, will continue dificid for duration of abx and 1 week past end date Reached out to pharmacy and order placed for #5 additional tablets Venous stasis ulcer of left lower leg with edema of left lower leg 07/15/2024 Assessment & Plan (09/02/2024 9:50 PM EST): Now following with wound clinic Had recent debridement Continues with aquacel dressings and changed daily Changed 3xweek by HH and other days by family Avoid abx unless overtly infected due to recurrent cdiff Assessment & Plan (08/08/2024 3:12 PM EDT): Wound care 3x week MWF by home health Gouty arthropathy 05/13/2024 Mild aortic regurgitation 03/07/2024 Mild mitral regurgitation 03/07/2024 Mitral valve prolapse 03/07/2024 Stasis ulcer of right lower extremity 01/24/2024 Assessment & Plan (01/24/2024 2:41 PM EDT): Aquacel ag and dsd Monitor closely for s/s of cellulitis Will place HH ref to assist with dressings Chronic kidney disease, stage 3b 02/27/2023 Overview: Per CKD protocol Flexural atopic dermatitis 11/29/2022 Assessment & Plan (03/28/2023 1:27 PM EDT): Continue Dupixent Paroxysmal atrial fibrillation 10/10/2022 Assessment & Plan (05/09/2024 4:54 PM EDT): Not on anticoag due to anemia and bleeding risk Metoprolol recently increased due to RVR Assessment & Plan (03/13/2024 11:26 AM EDT): Rate controlled on metoprolol Not on anticoag due to anemia and bleeding risk Assessment & Plan (01/24/2024 2:40 PM EDT): Rate controlled on metoprolol Not on anticoag due to anemia and bleeding risk Assessment & Plan (10/17/2023 9:41 AM EST): Rate controlled -continue metoprolol succinate Not on AC d/t HUNTER and concern for bleeding Assessment & Plan (05/02/2023 1:11 PM EDT): Rate controlled -continue metoprolol succinate Not on AC d/t HUNTER and concern for bleeding Assessment & Plan (03/28/2023 1:18 PM EDT): Rate controlled -continue metoprolol succinate -not on anticoagulation secondary to GI bleed/anemia in the past Assessment & Plan (10/19/2022 2:22 PM EST): Rate controlled on metoprolol Eliquis stroke prophylaxis Assessment & Plan (10/10/2022 11:05 AM EST): eliquis BID- metoprolol 25 mg daily Patient rate irregular Concerned this may be reason for current hypervolemic state Urge incontinence 08/24/2022 Overweight (BMI 25.0-29.9) 07/13/2022 Chronic diastolic heart fail ure secondary to coronary artery disease 07/13/2022 Hypertensive heart and kidne y disease with chronic diastolic congestive heart failure and stage 3b chronic kidney disease 05/16/2022 Assessment & Plan (09/01/2024 7:24 PM EST): "RED FLAG" HF Symptoms: Leg Swelling (Examples: "I can't wear certain socks or shoes", "My pants feel tight") Medication Regimen: Beta Sheldon Therapy: Metoprolol Succinate (ER) FABIANO Inhibitor/ARB Therapy: No FABIANO/ARB/ARNI secondary to: cough Diuretic therapy: Torsemide Self - Management Plan Double dose of Torsemide for 3 days Exacerbation Plan BMP Pro-BNP Additional Comments: Torsemide recently increased to 60mg daily by cardiology Assessment & Plan (08/08/2024 3:13 PM EDT): "RED FLAG" HF Symptoms: Leg Swelling (Examples: "I can't wear certain socks or shoes", "My pants feel tight") Medication Regimen: Beta Sheldon Therapy: Metoprolol Succinate (ER) FABIANO Inhibitor/ARB Therapy: No FABIANO/ARB/ARNI secondary to: cough Diuretic therapy: Torsemide Self - Management Plan Double dose of Torsemide for 3 days Exacerbation Plan BMP Pro-BNP Additional Comments: Cardiology f/u next week 08/13 Continue to elevate legs Assessment & Plan (05/09/2024 4:54 PM EDT): "RED FLAG" HF Symptoms: Leg Swelling (Examples: "I can't wear certain socks or shoes", "My pants feel tight") Medication Regimen: Beta Sheldon Therapy: Metoprolol Succinate (ER) FABIANO Inhibitor/ARB Therapy: No FABIANO/ARB/ARNI secondary to: cough Diuretic therapy: Torsemide Self - Management Plan Double dose of Torsemide for 3 days Exacerbation Plan BMP Pro-BNP Additional Comments: Resume torsemide at 20mg daily Continue to elevate legs Assessment & Plan (03/13/2024 11:23 AM EDT): "RED FLAG" HF Symptoms: Leg Swelling (Examples: [...] weights with assistance Continue to elevate legs Assessment & Plan (01/24/2024 2:39 PM EDT): "RED FLAG" HF Symptoms: Leg Swelling (Examples: [...] to encourage leg elevation Low sodium diet Assessment & Plan (10/17/2023 9:40 AM EST): "RED FLAG" HF Symptoms: Leg Swelling (Examples: "I can't wear certain socks or shoes", "My pants feel tight") Medication Regimen: Beta Sheldon Therapy: Metoprolol Succinate (ER) FABIANO Inhibitor/ARB Therapy: No FABIANO/ARB/ARNI secondary to: cough Diuretic therapy: Torsemide Self - Management Plan Double dose of Torsemide for 3 days Exacerbation Plan BMP Pro-BNP Additional Comments: Euvolemic Assessment & Plan (05/02/2023 1:10 PM EDT): "RED FLAG" HF Symptoms: o Leg Swelling [...] BMP on Thur with his other labs. Assessment & Plan (03/28/2023 1:25 PM EDT): Current Status: "Stable" for patient / At [...] Dry weight around 177 lb At baseline Assessment & Plan (10/19/2022 1:19 PM EST): Current Status: Actively exacerbating Degree of Condition Awareness: Demonstrates very good awareness of condition, disease course, and prognosis "RED FLAG" HF Symptoms: o Leg Swelling (Examples: "I can't wear certain socks or shoes", "My pants feel tight") o Abdominal Bloating (Examples: "I can't wear certain pants", "My belly feels hard", "I look ") o Increased dyspnea on exertion (Example: "I can't walk to the kitchen or up the stairs") o Increased shortness of breath at rest (Example: "I struggle to breathe even when watching TV") Current Heart Failure Classifications: o With less than ordinary activity ([employer] [place] [employer] CLASS III) Diagnostic Review: Recent Labs Units 10/13/22 0829 09/30/22 0932 09/20/22 1256 ESTIMATED GLOMERULAR FILTRATION RATE - [facility] mL/min -- -- 51* HGB - [facility] g/dL 8.6* < > -- < > = values in this interval not displayed. Medication Regimen: o Beta Sheldon Therapy: Metoprolol Succinate (ER) o FABIANO Inhibitor/ARB Therapy: None o Diuretic therapy: Lasix--also on maxzide Self - Management Plan o Double dose of Furosemide for 3 days Exacerbation Plan o BMP o Pro-BNP Pt never increased his dose to 40mg daily as per conversation 10/13-- did not want to increase over holiday since they were not home. He also continues maxzide. Sees cardiology tomorrow. Will have staff contact office to notify of [facility] recommendation, possibly consider d.c maxzide and maximize lasix? Suspect his dry wt is closer 173-175lb--he did lose 7lb since yesteday. Took lasix 40mg yesterday and 80mg today. Keep cardiology appt tomorrow. Advised sodium restriction Assessment & Plan (10/10/2022 11:01 AM EST): Metoprolol 25 mg daily maxide 25 daily Lasix 40 mg QOD Patient weight is up 10 lbs in 9 days- increased RLE edema Patient denies increased SOB Found with rales in LML and LLL- Concern for hypervolemia-- patient started on DTP today- adjusted pills in pill box BP controlled BP Readings from Last 4 Encounters: 10/10/22 118/58 09/27/22 136/56 09/16/22 132/70 09/06/22 112/52 Basic Panel Results: Results for orders placed or performed in visit on 09/20/22 BASIC METABOLIC PANEL Result Value Ref Range BUN 26 (H) 6 - 20 mg/dL Creatinine 1.4 (H) 0.6 - 1.2 mg/dL Estimated Glomerular Filtration Rate 51 (L) >=60 mL/min Sodium 142 135 - 146 mmol/L Potassium 4.2 3.5 - 5.1 mmol/L Chloride 101 98 - 107 mmol/L CO2 30 22 - 32 mmol/L Anion Gap 11 7 - 15 mmol/L Glucose 199 (H) 70 - 120 mg/dL Calcium 9.0 8.4 - 10.2 mg/dL Assessment & Plan (08/08/2022 3:01 PM EDT): Euvolemic today. BP up likely due to acute illness -continue lasix, maxide, Lipitor, metoprolol, ASA Iron deficiency anemia 07/28/2021 Assessment & Plan (08/08/2024 3:17 PM EDT): Follows with [facility] hematology Routine labs monitored by hem/onc Labs pending today Iron infusion 08/02 Blood transfusion 08/05 Assessment & Plan (07/15/2024 6:05 PM EDT): Follows with [facility] hematology Routine labs monitored by hem/onc Update CBC next week Assessment & Plan (03/13/2024 11:24 AM EDT): Follows with [facility] hematology Routine labs monitored by hem/onc Update CBC tomorrow PRBC transfusions 01/2024, 02/2024 Assessment & Plan (10/17/2023 9:43 AM EST): Followed closely by [facility] hematology. No identified cause of HUNTER. Weekly labs monitored by hem/onc. Most recent hgb 8.7 Assessment & Plan (05/02/2023 1:04 PM EDT): Followed closely by [facility] hematology. No identified cause of HUNTER. Weekly labs monitored by hem/onc. Most recent hgb stable 10.5. Assessment & Plan (03/28/2023 1:27 PM EDT): Received blood transfusion 03/24 -will follow-up CBC on 03/30 -continue ferrous sulfate. Dose once daily. Med list updated Assessment & Plan (10/19/2022 1:20 PM EST): Followed by hem/onc. Had severe anemia in Aug with drop to 4.3. GA now monitoring counts weekly. Pt very pale and fatigued today. RNCM will draw labs today. At this time exact etiology of HUNTER unknown. Due for iron infusion Monday, receives every 2 weeks. Assessment & Plan (10/10/2022 11:06 AM EST): Continues with heme/onc for iron infusions Assessment & Plan (08/08/2022 2:57 PM EDT): hgb 10.7 04/2022 -continue supplement Gastro-esophageal reflux disease without esophag itis 06/21/2021 Assessment & Plan (10/17/2023 9:43 AM EST): Continue pantoprazole Assessment & Plan (03/28/2023 1:28 PM EDT): Continue pantoprazole Assessment & Plan (08/08/2022 2:58 PM EDT): Sx controlled with pantoprazole Wandering atrial pacemaker 02/18/2021 Assessment & Plan (08/08/2022 2:56 PM EDT): Irregular today but rate controlled -? Pt not on any AC. Will d/w team Dementia associated with Parkinson's disease Overview (09/01/2024): Follows with Dr Shannon Zhang in [place] via telemed for PD Assessment & Plan (09/01/2024 7:15 PM EST): Continue aricept and amantadine Family assists with 15/05 care Assessment & Plan (08/08/2024 3:14 PM EDT): Continue aricept and amantadine Family assists with 15/05 care Assessment & Plan (07/15/2024 6:06 PM EDT): Family assisting with all ADLs and IADLs Assessment & Plan (01/24/2024 2:40 PM EDT): Continue aricept Assessment & Plan (10/17/2023 9:45 AM EST): Continue Aricept 10 mg daily Assessment & Plan (03/28/2023 1:28 PM EDT): Continue Aricept 10 mg daily Assessment & Plan (10/19/2022 1:14 PM EST): Baseline -continue aricpept Assessment & Plan (08/08/2022 3:00 PM EDT): Baseline -continue aricpept BPH with obstruction/lower urinary tract symptom s 01/02/2019 Assessment & Plan (05/02/2023 1:13 PM EDT): Pt unsure if he wants to proceed with BPH. He has intermittent hesitancy, nocturia and frequency but does not feel his symptoms are significant enough to warrant surgery. Also does not want kee for a week post-op since he had bad experience in the past. Aware PCP would like him to have cardiology pre-op clearance prior to surgery. Assessment & Plan (03/28/2023 1:28 PM EDT): Flomax discontinued. Finasteride started. Med list updated HTN, goal below 130/80 07/26/2018 Type 2 diabetes mellitus wit h hemoglobin A1c goal of less than 8.0% 07/26/2018 Overview (08/08/2022): Last hgba1c 5.5 in 02/2022 -continue metformin Assessment & Plan (01/31/2025 2:48 PM EDT): Primary osteoarthritis of both knees 03/21/2018 Coronary artery disease invo lving [place] coronary artery of [place] heart without angina pectoris 03/21/2018 Assessment & Plan (05/02/2023 1:16 PM EDT): Stable, Continue metoprolo, atorvastatin No ASA d/t history severe anemia--GI bleeding? Assessment & Plan (03/28/2023 1:20 PM EDT): Stable. No angina. - continue metoprolol, atorvastatin. Not on aspirin due to GI bleeding and anemia. Fabiano intolerance. Cervical spinal stenosis 08/18/2017 Primary parkinsonism 08/18/2017 Assessment & Plan (07/15/2024 6:06 PM EDT): -Continue amantadine Followed by Dr. Shannon Bowman via telemedicine Assessment & Plan (03/13/2024 11:25 AM EDT): -Continue amantadine Followed by Dr. Shannon Bowman via telemedicine Assessment & Plan (01/24/2024 2:39 PM EDT): -Continue amantadine Followed by Dr. Shannon Bowman via telemedicine every 6 months Assessment & Plan (10/17/2023 9:43 AM EST): Baseline -Continue amantadine Followed by Dr. Shannon Bowman via telemedicine every 6 months Assessment & Plan (05/02/2023 1:03 PM EDT): Baseline -Continue amantadine Followed by Dr. Shannon Bowman via telemedicine every 6 months Assessment & Plan (03/28/2023 1:29 PM EDT): Baseline -Continue amantadine -order for transport chair Assessment & Plan (10/19/2022 1:13 PM EST): Continue amantadine Assessment & Plan (08/08/2022 3:00 PM EDT): Baseline -continue amantadine S/P CABG x 3 08/18/2017 FABIANO inhibitor intolerance 12/04/2015 Dyslipidemia 08/09/2002 Assessment & Plan (10/17/2023 9:49 AM EST): Discussed lipid panel from December--LDL 178--prior LDL from 01/11 99. reports they no longer have atorvastatin--med on list, thinks it ran out and did not kathy refilled. Med refilled and advised to restart. Lipid panel ordered for 3 months by mobile documented as of this encounter (statuses as of 03/04/2025) Resolved Problems Problem Noted Date Diagnosed Date Resolved Date Cerebral atrophy 03/07/2024 05/12/2024 Aortic ectasia, thoracic 03/07/2024 Atherosclerosis of aorta 03/07/2024 Paroxysmal atrial fibrillation 07/19/2023 03/07/2024 History of cellulitis 05/02/20232023 Assessment & Plan (10/17/2023 9:45 AM EST): Continues daily cephalexin 500mg for prevention Assessment & Plan (05/02/2023 1:12 PM EDT): Continues daily cephalexin 500mg for prevention Immunodeficiency 03/28/2023 01/24/2024 Assessment & Plan (03/28/2023 1:28 PM EDT): Secondary to Dupixent Type 2 diabetes mellitus wit h stage 3b chronic kidney disease 02/27/2023 05/12/2024 Overview: Per CKD protocol Assessment & Plan (10/17/2023 9:42 AM EST): "RED FLAG" Diabetic symptoms: Generalized Weakness Goal HgbA1c <8 Diabetic Complications Vascular (examples: PVD, PAD, CAD, CVA) Renal (example: CKD, Proteinuria, Dialysis) Medication Regimen Metformin DM Secondary Prevention Moderate-High Intensity Statin Additional Comments Hgba1x 04/12/23--6.1 Hematuria, gross 08/24/2022 10/11/2023 Viral upper respiratory tract infection 08/08/2022 11/29/2022 Assessment & Plan (08/08/2022 3:01 PM EDT): -resp panel -presume covid + -paxlovid, steroids Hx of Salmonella infection 05/16/2022 0 07/13/2022 Hematuria 05/16/2022 05/20/2022 Hypertensive kidney disease with stage 3a chronic kidney disease 04/20/2022 05/20/2022 Type 2 diabetes mellitus wit h stage 3a chronic kidney disease, without long-term current use of insulin 06/21/2021 03/01/2023 Overview: Per CKD protocol Assessment & Plan (10/10/2022 11:06 AM EST): Metformin 500 mg daily Hemoglobin AIC Results: [...] peripheral angiopathy without gangrene 06/21/2021 0 05/12/2024 Assessment & Plan (03/28/2023 1:26 PM EDT): Current Status: "Stable" for patient / At [...] Recurrent cellulitis of lower extremity 02/18/2021 10/11/2023 Assessment & Plan (03/28/2023 1:28 PM EDT): On prophylactic Keflex 500 mg daily Chronic kidney disease, stage 3a 02/01/2021 03/01/2023 Overview: Per CKD protocol Dementia with Lewy bodies (CODE) 07/07/2020 07/15/2020 Type 2 diabetes mellitus wit h diabetic dermatitis 01/31/2019 02/18/2021 Type 2 diabetes mellitus wit h diabetic peripheral angiopathy without gangrene 01/31/2019 0 03/27/2020 Seborrheic dermatitis 10/26/20182021 Cognitive dysfunction 08/23/20182019 Prediabetes 06/29/2018 07/26/2018 Epidermal cyst 09/21/2017 10/27/2017 FABIANO (generalized anxiety disorder) 08/18/2017 11/04/2024 Assessment & Plan (03/28/2023 1:29 PM EDT): Symptoms stable -continue Lexapro Dyslipidemia, goal LDL below 70 03/20/2013 06/09/2017 FABIANO inhibitor intolerance 11/13/2012 Overview (11/13/2012): See scanned document from 11/13/[address] bains, chad. 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y lesion 10/15/2012 08/23/2018 Dyslipidemia, goal LDL below 100 08/16/2012 08/16/2012 Spinal stenosis, unspecified region other than cervical 02/28/2011 08/18/2017 Medullary sponge kidney 01/05/201003/23 Lumbago 01/05/2010 08/18/2017 Overview (01/05/2010): Spondylithiasis and diffuse DJD Primary localized osteoarthrosis, lower leg 02/16/2009 08/18/2017 Irritable bowel syndrome 02/11/2008 Impotence of organic origin 02/11/2008 08/18/2017 ADVANCE DIRECTIVE INFORMATION 07/28/2005 01/10/2014 Overview (07/28/2005): No, Advance Directive brochure given to patient. HTN, goal below 150/90 08/09/200207/26 Other psoriasis 08/09/2002 10/19/2015 Screening for prostate cancer 08/09/2002 11/03/2008 documented as of this encounter (statuses as of 03/04/2025) Immunizations Name Administration Dates Next Due COVID-19 mRNA, LNP-s, No Pre serve, 2-Dose Series (Uep[employer]) 11/03/2021,12/19/2020,11/28/2020 Covid-19 Ad26, Single Dose ([employer]) 12/19/2020,11/28/2020 DTaP Dipth/Tet/Acell Pertussis (Infanrix), Peds 10/24/2019 Pneumococcal Conjugate Vacc, 13 Valent (Prevnar) 04/27/2016 Pneumococcal Polysaccharide PPV23 (Pneumovax) 08/27/2009 Season Influenza, Quad, PF, Adjuvanted, 65+ Yrs, IM (FLUAD) 07/07/2020 Seasonal Influenza Vac., MDV , IM, 0.5 mL (Fluzone) 08/23/2016,07/03/2015,07/14/2014,06/23,07/13/2012,07/15/2011,07/27/20 10,07/02/2009,09/03/2008,08/28/2007,1 10/28/2005 07/06/2014 Seasonal Influenza Virus Vac cine, Unspecified [...] Influenza, Quadriva lent, No Preserve, IM 07/25/2016 TD, Preservative Free 05/27/1997 TDAP (age 10 and older)(Boostrix) 10/24/2019 TDAP, Age 7 and older, IM (Adacel) 11/03/2008 Varicella Zoster Vaccine Jayy lt (Zostavax) 10/24/2019,09/05/2016 Zoster Vaccine Recombinant (Shingrix) 10/24/2019 ,07/31/2019 documented as of this encounter Social History Tobacco Use Types Packs/Day Years Used Date Smoking Tobacco: Never Smokeless Tobacco: Never Alcohol Use Standard Drinks/Week Comments No 0 (1 standard drink = 0.6 oz pur e alcohol) PHQ-2 Answer Date Recorded PHQ Adult Total Score 2 08/06/2024 Hunger Vital Sign Answer Date Recorded Within [...] ages 0-17 years) Not on file 03/07/2024 Food Insecurity Answer Date Recorded Worried About Running Out of Food in the Last Ye ar Not on file 03/07/2024 Ran Out of Food in the Last Year Not on file 03/07/2024 Do you need food for this week? 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 he discontinueduse of this and started using Vaseline and CerVe for his lower legs per last office visit w/ Vicky Hoffman. HPI: Jesus Jose is a 79 year old male seen for rash on lower legs. New to me, but seen by Ej martinez many times over the years, including about 2 weeks ago by Maranda Hoffman. Here with and daughter who help provide history due to patient's dementia/parkinsons Hx of widespread itchy rash. tells me that today it is all over. Constantly scratching Had been on dupixent at one point for this? Helped at first, but then worsened. 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 Had wounds, was seeing [facility] W[facility] until discharged about 1 month ago Has compression at home, not currently using A. Skin, Vertex, punch: Psoriasiform dermatitis (see comment) Comment: In the appropriate clinical setting these histologic findings are consistent with a diagnosis of psoriasis. The histologic differential diagnosis includes seborrheic dermatitis. OBJECTIVE: GEN: Elderly but alert, no distress, pleasant SKIN: Problem focused exam reveals: Lower legs with mild pitting edema, shiny erythema. Scattered excoriations Chest, back - retention hyperkeratosis Scattered on the scalp and the face, particularly the eyebrows and nasolabial folds, are thin pink plaques with non-adherent bran-like scale L forearm - 8mm hemorrhagic crust ASSESSMENT/PLAN: Stasis dermatitis, mild - Discussed that the dermatitis is secondary to chronic venous insufficiency and lower leg edema. Recommend they work with [facility] and his PCP to better control lower leg edema - compression, elevation - betamethasone ointment daily until redness improves, then switch to gentle moisturizers - discussed can use keratolytic moisturizers like amlactin for retention hyperkeratosis but not necessary Seborrheic dermatitis - ketoconazole shampoo - derma-smoothe nightly Left forearm lesion - scar from recent abrasion per family. Will monitor, if not improving then recommend return for biopsy F/u - 2-3 months. Discussed with family that I have no openings in this time frame and that if they'd like to be see in this location then they will be contacted when an appointment becomes available Osvaldo Liu MD REF: SELF [address] ADDRESS AVAILABLE PCP: SERJIO HINTON [address] [place] [address] [phone] documented in this encounter Nursing Notes * Katherine Ho MED ASSIST - 03/03/2025 2:16 PM EDT Chief Complaint Patient presents with Follow Up Pt here for eczema, pt was seeing wound clinic and was recommended to use Amlactin. he discontinueduse of this and started using Vaseline and CerVe for his lower legs per last office visit w/ Vicky Hoffman. documented in this encounter Plan of Treatment Upcoming Encounters Date Type Department Care Team (Late st Contact Info) Description 03/04/2025 11:30 AM EDT [facility] Visit [facility] [address] [place] [address] Mayuri Grant RN [address] [place] [address] 03/04/2025 12:15 PM EDT Scheduled Telephone [facility] [place], [facility] [address] [place] [id number] [facility], Nurse [facility] [address] [place] [address] 03/06/2025 11:30 AM EDT [facility] Visit [facility] [address] [place] [address] Peggy De, RN [address] [place] [id number] 03/07/2025 9:30 AM EDT Scheduled Telephone [facility], [facility] [address] [place] [id number] Coordinator, [facility] [address] [place] [id number] 03/10/2025 11:00 AM EDT [facility] Visit [facility], [facility] [address] [place] [address] Berny Power PA-C [address] [place] [address] 03/12/2025 3:30 PM EDT Home Visit [facility] [address] [place] [address] Betina Jacob PA-C [address] [place], [place] [id number] 03/18/2025 11:15 AM EDT Office Visit Urology, [facility] [address] [place] [phone] Kalpesh Funes MD [address] [place] [address] 03/25/2025 9:30 AM EDT [facility] Visit [facility], [facility] [address] [place] [address] Peggy De, RN [address] [place] [address] 04/03/2025 7:00 AM EDT Laboratory Lab Mobile Phlebotomy [address], [place] [address] [facility] Mobile Home Draw [address] [place] [address] 05/21/2025 4:00 PM EDT Office Visit Family [facility] [address] [place] [address] Serjio Hinton MD [address] [place] [address] Health Maintenance Due Date Last Done Comments Alpha-1 Antitrypsin 1963 Diabetic Foot Exam 03/27/2021 03/27/2020, 08/23/2018 Diabetic Eye Exam 11/01/2023 11/01/2022, , 11/01/2022, Additional history exists Albumin/Creatinine Ratio 12/27/2023 023, 03/08/2019, 04/09/2014 HbA1c 11/23/2024 05/23/2024, 03/24, 12/26/2022, Additional history exists CKD PHOS USE SMARTSET 39852 12/07/202411/23, 12/26/2022, 06/21/2021 Adult Wellness Visit 03/06/2025 03/06/2024, 11/02/19 23 O2 ASSESSMENT COMPLETED IN PAST YEAR FOR COPD 04/12/2025 04/12/2024 GFR 07/05/2025 01/02/2025, 10/25, 11/07/2024, Additional history exists Depression Screening 08/06/2025 08/06/2024 CKD HGB USE SMARTSET 26878 01/02/202601/02, 01/02/2025, 11/21/2024, Additional history exists DTap/Tdap Vaccines (4 - Td or Tdap) 10/24/2029 10/24/2019, 10/24/2019, 11/03/2008, Additional history exists Pneumococcal Vaccine: 50+ Years Completed 04/27/2016, 08/27/2009 Zoster Vaccines Completed 10/24/2019, 11/2019, 07/31/2019, Additional history exists COVID-19 Vaccine Discontinued 11/03/2021, , 12/19/2020, Additional history exists Colonoscopy Discontinued 10/18/2023, 09/23, 09/12/2022, Additional history exists Influenza Vaccine (FLU shot) Completed 07/06/2024, 07/06/2024, 08/02/2023, Additional history exists EKG Completed 08/26/2024, 11/24, 08/29/2022, Additional history exists HPV (Gardasil) Vaccine Aged Out No lo nger eligible based on patient's age to complete this topic Hepatitis B Vaccine Aged Out No longe r eligible based on patient's age to complete this topic MENINGOCOCCAL (MENACTRA/MENVEO) Aged Out No longer eligible based on patient's age to complete this topic Meningitis B Vaccine (Bexsero/Trumemba) Aged Out No longer eligible based on patient's age to complete this topic documented as of this encounter Medical Devices Implanted Type Area Acute Care Surgeon Device Identifier Shelf Expiration Date Model / Serial / Lot Lens Intraoc 22.5 - [id number] - [id number] Implanted:Qty: 1 on 05/22/2018 by Jasbir Maurer MD at OR [facility] Right: Eye BAUSCH 11/22/2022 [id number] / [id number] / [id number] Lens Intraoc 21.0 - [id number] - [id number] Implanted:Qty: 1 on 06/05/2018 by Jasbir Maurer MD at OR [facility] Left: Eye BAUSCH 12/20/2022 [id number] / [id number] / Duraclip 16mm Xlg Repostn - [id number] Implanted:Qty: 1 on 04/12/2024 by Edilbetro Lujan MD at OR [facility] [employer] [id number] 12/08/2024 [id number] / / [id number] Duraclip 16mm Xlg Repostn - [id number] Implanted:Qty: 1 on 04/12/2024 by Edilberto Lujan MD at OR [facility] [employer] [id number] 12/08/2024 [id number] / / [id number] Duraclip 16mm Xlg Repostn - [id number] Implanted:Qty: 1 on 04/12/2024 by Edilberto Lujan MD at OR [facility] [employer] [facility] [id number] 12/08/2024 [id number] / / [id number] documented as of this encounter Visit Diagnoses Diagnosis Viral upper respiratory tract infection- Primary Acute upper respiratory infections of unspecified site Hypertensive heart and chronic kidney disease with heart failure and stage 1 through stage 4 chronic kidney disease, or chronic kidney disease (HCC) Unspecified hypertensive heart and kidney disease with heart failure and with chronic kidney disease stage I through stage IV, or unspecified Wandering atrial pacemaker Other specified cardiac dysrhythmias Other iron deficiency anemia Type 2 diabetes mellitus with hemoglobin A1c goal of less than 8.0% ([facility]) Gastro-esophageal reflux disease without esophagitis Esophageal reflux 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HCC) Primary parkinsonism (HCC) Paralysis agitans Hypertensive heart 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 stage 3b chronic kidney disease ([facility])- Primary Atrial fibrillation, unspecified type (HCC) Iron deficiency anemia, unspecified iron deficiency anemia type Type 2 diabetes mellitus with stage 3a chronic kidney disease, without long-term current use of insulin ([facility]) Hypertensive 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)- Primary Iron deficiency anemia, unspecified iron deficiency anemia type Wandering atrial pacemaker Other specified cardiac dysrhythmias Primary parkinsonism (HCC) Paralysis agitans 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HCC) Paroxysmal atrial fibrillation (HCC) Atrial fibrillation Paroxysmal atrial fibrillation (HCC)- Primary Atrial fibrillation 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 Type 2 diabetes mellitus with diabetic peripheral angiopathy without gangrene, unspecified whether terminal operations supervisor insulin use ([facility]) Coronary artery disease involving [place] coronary artery of [place] heart without angina pectoris Hypertensive 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) Iron deficiency anemia, unspecified iron deficiency anemia type Flexural atopic dermatitis Other atopic dermatitis and related conditions Recurrent cellulitis of lower extremity Gastro-esophageal reflux disease without esophagitis Esophageal reflux BPH with obstruction/lower urinary tract symptoms Hypertrophy of prostate with urinary obstruction and other lower urinary tract symptoms ([facility]) 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HCC) Primary parkinsonism (HCC) Paralysis agitans FABIANO (generalized anxiety disorder) Generalized anxiety disorder Bilateral leg edema- Primary Edema Hypertensive 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) Nonrheumatic mitral valve regurgitation Coronary artery disease involving [place] coronary artery of [place] heart without angina pectoris Paroxysmal atrial fibrillation (HCC) Atrial fibrillation Stage 3b chronic kidney disease (HCC) Iron deficiency anemia, unspecified iron deficiency anemia type History of cellulitis BPH with obstruction/lower urinary tract symptoms Hypertrophy of prostate with urinary obstruction and other lower urinary tract symptoms ([facility]) Dyslipidemia- Primary Other and unspecified hyperlipidemia Hypertensive 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) Paroxysmal atrial fibrillation (HCC) Atrial fibrillation Type 2 diabetes mellitus with stage 3b chronic kidney disease, without long-term current use of insulin (HCC) Primary parkinsonism (HCC) Paralysis agitans Iron deficiency anemia, unspecified iron deficiency anemia type Gastro-esophageal reflux disease without esophagitis Esophageal reflux 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HCC) Stasis ulcer of right lower extremity (HCC)- [...] ankle pain Primary parkinsonism (HCC) Paralysis agitans Hypertensive 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)- Primary Paroxysmal atrial fibrillation (HCC) Atrial fibrillation Iron deficiency anemia due to chronic blood loss Iron deficiency anemia secondary to blood loss (chronic) H/O: GI bleed Personal history of other diseases of digestive system Primary parkinsonism (HCC) Paralysis agitans Nonrheumatic mitral valve regurgitation Coronary artery disease involving [place] coronary artery of [place] heart without angina pectoris Stage 3b chronic kidney disease (HCC) Advanced care planning/counseling discussion Other specified counseling Hypertensive 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)- Primary Paroxysmal atrial fibrillation (HCC) Atrial fibrillation Clostridium difficile diarrhea Intestinal infection due to clostridium difficile Acute gout of right knee, unspecified cause Cellulitis of left lower extremity Cellulitis and abscess of leg, except foot Advanced care planning/counseling discussion Other specified counseling Iron deficiency anemia, unspecified iron deficiency anemia type Clostridium difficile diarrhea- Primary Intestinal infection due to clostridium difficile Venous stasis ulcer of left lower leg with edema of left lower leg (HCC) Chronic diastolic 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 (HCC) Primary parkinsonism (HCC) Paralysis agitans 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HCC) Iron deficiency anemia, unspecified iron deficiency anemia type Advanced care planning/counseling discussion Other specified counseling Venous stasis ulcer of left lower leg with edema of left lower leg (HCC)- Primary Stasis ulcer of right lower extremity (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) 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HCC) Iron deficiency anemia, unspecified iron deficiency anemia type Venous stasis ulcer of left lower leg with edema of left lower leg (HCC)- Primary Hypertensive 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) 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HCC) Recurrent Clostridium difficile diarrhea Intestinal infection due to clostridium difficile Dental infection Acute apical periodontitis of pulpal origin Wound, open, arm, forearm, right, initial encounter- Primary Type 2 diabetes mellitus with hemoglobin A1c goal of less than 8.0% (HCC) Recurrent Clostridium difficile diarrhea Intestinal infection due to clostridium difficile Seborrheic dermatitis of scalp- Primary Other seborrheic dermatitis Stasis dermatitis Varicose veins of lower extremities with inflammation Skin neoplasm Neoplasm of unspecified nature of bone, soft tissue, and skin documented in this encounter Advance Directives * [...] p Communication Ashley Jose Spouse Health Care Repr esentative (appointed verbally by patient or by statute hierarchy) Care Teams 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
--- OUTSIDE RECORDS SUMMARY | 2025-03-05 02:10 | External Medical Summary | Summary of Care ---
Author Name Unknown Organization [facility] Address [address] [place] [address] Phone [phone] Care Team Providers Care Shop Coordinator Name Role Phone Michael Hinton MD Primary Care Provider [phone] Reason for Visit * Reason Onset Date Comments [facility]: Maintenance 03/04/2025 Encounter Details Date Type Department Care Team (Late st Contact Info) Description 03/04/2025 12:15 PM EDT Scheduled Telephone [facility], [facility] [address] [place] [address] [facility], Nurse [facility] [address] [place] [address] Allergies Active Allergy Reactions Criticality Noted Date Comments Fabiano Inhibitors Cough 06/09/2017 Carbidopa High 08/30/2024 Other Reaction(s): constipation Carbidopa-Levodopa 03/17/2021 Constipation Levodopa High 08/30/2024 Other Reaction(s): constipation Nsaids Rash 05/17/2018 Contraindicated per screen printing loader unloader documented as of this encounter (statuses as of 03/04/2025) Medications DIURETIC TITRATION PLAN If no improvement on day 3, contact heart failure managing provider. 1 Each 05/02/20 23 Active Allopurinol 300 MG Oral Tablet (Zyloprim) Take 1 Tablet by mouth in the morning. 90 Tablet 3 02/03/2025 11:22 AM EDT 05/13/20 24 Active Saccharomyces boulardii 250 MG Oral Capsule (Florastor)Indicat ions:Clostridium difficile diarrhea Take 1 Capsule by mouth in the morning and 1 Capsule before bedtime. 90 Capsule 3 08/19/20 24 Active Additional Information Patient taking differently:250 mg OralDaily(Non-Specified), Reported on 03/03/2025 Metoprolol Succinate ER 50 MG Oral Tablet Extended Release 24 Hour (Toprol XL) Take 1 Tablet by mouth in the morning. 90 Tablet 3 02/18/2025 3:26 PM EDT 08/26/20 24 Active Spironolactone 25 MG Oral Tablet (Aldactone) Take one-half Tablet by mouth in the morning. 45 Tablet 3 12/11/2024 4:41 PM EST 09/17/20 24 Active Dutasteride 0.5 MG Oral Capsule (Avodart) Take 1 Capsule by mouth in the morning. 90 Capsule 3 01/22/2025 5:51 PM EDT 09/17/20 24 Active Atorvastatin Calcium 40 MG Oral Tablet (Lipitor)Indicatio ns:Dyslipidemia Take 1 Tablet by mouth in the morning. 90 Tablet 3 12/26/2024 1:44 PM EST 09/25/20 24 Active Empagliflozin 10 MG Oral Tablet (Jardiance) Take 1 Tablet by mouth in the morning. Do not start before October 28, 2024. 90 Tablet 3 10/09/2024 11:54 AM EST 10/28/19 25 Active buPROPion HCl ER (XL) 150 MG Oral Tablet Extended Release 24 Hour (Wellbutrin XL)Indications:FABIANO (generalized anxiety disorder) Take 1 Tablet by mouth in the morning. 90 Tablet 3 10/10/2024 4:25 PM EST 10/10/20 24 Active Torsemide 20 MG Oral Tablet (Demadex)Indicatio ns:Paroxysmal atrial fibrillation (HCC),Nonrheumatic mitral valve regurgitation,Krista nary artery disease involving [place] coronary artery of [place] heart without angina pectoris,Stage 3b chronic kidney disease (HCC) Take 2 tablets by mouth daily and as directed for weight gain/fluid 10/25/19 25 Active Amantadine HCl 100 MG Oral Capsule (Symmetrel) Take 1 capsule (100 mg total) by mouth daily . PLEASE SCHEDULE FOLLOW UP APPOINTMENT. [phone] 90 Capsule 1 12/11/2024 10:05 AM EST 12/09/19 25 Active OneTouch Delica Lancets 33GIndications:Typ e 2 diabetes mellitus with hemoglobin A1c goal of less than 8.0% ([facility]) Use up to 4 times a day 400 Each 3 01/14/2025 10:58 AM EDT 01/11/20 25 Active OneTouch Verio In Vitro Strip (Glucose Blood)Indications: Type 2 diabetes mellitus with hemoglobin A1c goal of less than 8.0% (HCC) Use up to 4 times a day E11.9 400 Strip 3 01/14/2025 2:20 PM EDT 01/11/20 25 Active D-Care Glucometer w/Device KitIndications:Typ e 2 diabetes mellitus with hemoglobin A1c goal of less than 8.0% ([facility]) Use as directed. 1 Kit 01/14/2025 8:27 AM EDT 01/11/20 25 Active Escitalopram Oxalate 20 MG Oral Tablet (Lexapro) take one tablet by mouth daily in the morning 90 Tablet 3 01/24/2025 4:55 PM EDT 01/24/20 25 Active Magic Swizzle (Lidocaine-Benadry l-Maalox) oral solution Swish and spit 15 mL in the morning and 15 mL before bedtime. 90 mL 02/12/20 25 Active Donepezil HCl 10 MG Oral Tablet Disintegrating (Aricept Odt) Place 1 Tablet on tongue in the morning. Take with largest meal of the day.. Active CeraVe Itch Relief 1 % External Cream (Pramoxine HCl) Apply topically to affected area. Apply to affected area daily as directed Active Fluocinolone Acetonide Scalp 0.01 % External Oil ([place]-Smoothe/FS Scalp)Indications: Seborrheic dermatitis of scalp Apply to scalp at night. Leave in overnight, then rinse out. Do this daily 118.28 mL 5 03/03/20 25 Active Ketoconazole 2 % External Shampoo (Nizoral)Indicatio ns:Seborrheic dermatitis of scalp Lather into scalp three times weekly, then rinse 120 mL 03/03/20 25 Active Betamethasone Dipropionate 0.05 % External OintmentIndication s:Stasis dermatitis Apply to rash on legs twice daily for up to 2 weeks at a time 50 g 5 03/03/20 25 Active documented as of this encounter (statuses [...] -continue metoprolol succinate Not on AC d/t HUTNER and concern for bleeding Assessment & Plan [...] have staff contact office to notify of [facility] recommendation, possibly consider d.c maxzide and maximize [...] Plan (08/08/2024 3:17 PM EDT): Follows with [facility] hematology Routine labs monitored by hem/onc Labs pending today Iron infusion 08/02 Blood transfusion 08/05 Assessment & Plan (07/15/2024 6:05 PM EDT): Follows with [facility] hematology Routine labs monitored by hem/onc Update CBC next week Assessment & Plan (03/13/2024 11:24 AM EDT): Follows with [facility] hematology Routine labs monitored by hem/onc Update CBC tomorrow PRBC transfusions 01/2024, 02/2024 Assessment & Plan (10/17/2023 9:43 AM EST): Followed closely by [facility] hematology. No identified cause of HUNTER. Weekly labs monitored by hem/onc. Most recent hgb 8.7 Assessment & Plan (05/02/2023 1:04 PM EDT): Followed closely by [facility] hematology. No identified cause of HUNTER. Weekly labs monitored by hem/onc. Most recent hgb stable 10.5. Assessment & Plan (03/28/2023 1:27 PM EDT): Received blood transfusion 03/24 -will follow-up CBC on 03/30 -continue ferrous sulfate. Dose once daily. Med list updated Assessment & Plan (10/19/2022 1:20 PM EST): Followed by hem/onc. Had severe anemia in Aug with drop to 4.3. [facility] now monitoring counts weekly. Pt very pale and fatigued today. RN will draw labs today. At this time [...] (09/01/2024): Follows with Dr Shannon Zhang in [place] via telemed for PD Assessment & Plan (09/01/2024 7:15 PM EST): Continue aricept and amantadine Family assists with 24/7 care Assessment & Plan (08/08/2024 3:14 PM EDT): Continue aricept and amantadine Family assists with 24/7 care Assessment & Plan (07/15/2024 6:06 PM [...] 03/21/2018 Coronary artery disease invo lving [place] coronary artery of [place] heart without angina pectoris 03/21/2018 Assessment & [...] Results Component Value Date/Time [facility]GLOBIN [facility]C - [facility] 5.5 03/22/2022 10:55 AM HEMOGLOBIN A1C - [...] (11/13/2012): See scanned document from 11/13/2012 from [facility] [...] mRNA, LNP-s, No Pre serve, 2-Dose Series (OrderWithMe) 11/03/2021,12/19/2020,11/28/2020 Covid-19 Ad26, Single Dose (Soy/J&J) 12/19/2020,11/28/2020 [...] 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 Taryn Salcedo BSN, RN [facility] chalk extruding machine operator Navigator documented in this encounter Plan of Treatment Upcoming Encounters Date Type Department Care Team (Late st Contact Info) Description 03/04/2025 11:30 AM EDT [facility] Visit [facility] [place], [facility] [address] [place] [address] Mayuri Grant RN [address] [place] [address] 2025 11:30 AM EDT Scheduled Telephone [facility] [place], [facility] [address] [place] [address] [facility] Nurse [facility] 132 [facility] [place] [address] 03/06/2025 11:30 AM EDT Home Visit [facility] [place], [facility] [address] [place] [address] Peggy De RN [address] [place] [address] 03/07/2025 9:30 AM EDT Scheduled Telephone [facility], [facility] [address] [place] [address] Coordinator, [facility] [address] [place] [address] 03/10/2025 11:00 AM EDT [facility] Visit [facility], [facility] [address] [place] [address] Berny Power PA-C [address] [place] [address] 03/12/2025 3:30 PM EDT Home Visit [facility] at Home [address], [place] [id number] Betina Jacob PA-C [address] [place], [place] [id number] 03/18/2025 11:15 AM EDT Office Visit Urology, [facility] [address] [place] [phone] Kalpesh Funes MD [address] [facility] [place] [address] 03/25/2025 9:30 AM EDT [facility] Visit [facility], [facility] [address] [place] [address] Peggy De, RN [address] [place] [address] 04/03/2025 7:00 AM EDT Laboratory Lab Mobile Phlebotomy [address] [facility] [place] [address] [facility] Mobile Home Draw [facility] [place] [address] 05/21/2025 4:00 PM EDT Office Visit Family Practice [facility] [address] [place] [address] Michael Hinton MD [address] [place] [address] Health Maintenance Due Date Last Done Comments Alpha-1 Antitrypsin 1963 Diabetic Foot Exam 03/27/2021 03/27/2020, 08/23/2018 Diabetic Eye Exam 11/01/2023 11/01/2022, , 11/01/2022, Additional history exists Albumin/Creatinine Ratio 12/27/2023 023, 03/08/2019, 04/09/2014 HbA1c 11/23/2024 05/23/2024, 03/24, 12/26/2022, Additional history exists CKD PHOS USE SMARTSET 12553 12/07/202411/23, 12/26/2022, 06/21/2021 Adult Wellness Visit 03/06/2025 03/06/2024, 11/02/19 23 O2 ASSESSMENT COMPLETED IN PAST YEAR FOR COPD 04/12/2025 04/12/2024 GFR 07/05/2025 01/02/2025, 10/25, 11/07/2024, Additional history exists Depression Screening 08/06/2025 08/06/2024 CKD HGB USE SMARTSET 96613 01/02/202601/02, 01/02/2025, 11/21/2024, Additional history exists DTap/Tdap [...] this encounter Medical Devices Implanted Type Area Kier Boiler Device Identifier Shelf Expiration Date Model / Serial / Lot Lens Intraoc 22.5 - [id number] - [id number] Implanted:Qty: 1 on 05/22/2018 by Jasbir Maurer MD at OR [facility] Right: Eye BAUSCH 11/22/2022 [id number] / [id number] / [id number] Lens Intraoc 21.0 - [id number] - [id number] Implanted:Qty: 1 on 06/05/2018 by Jasbir Maurer MD at OR [facility] Left: Eye BAUSCH 12/20/2022 [id number] / [id number] / Duraclip 16mm Xlg Repostn - [id number] Implanted:Qty: 1 on 04/12/2024 by Edilberto Lujan MD at OR [facility] [employer] [id number] 12/08/2024 [id number] / / [id number] Duraclip 16mm Xlg Repostn - [id number] Implanted:Qty: 1 on 04/12/2024 by Edilberto Lujan MD at OR [facility] [employer]ACH[employer] [id number] 12/08/2024 [id number] / / [id number] Duraclip 16mm Xlg Repostn - [id number] Implanted:Qty: 1 on 04/12/2024 by Edilberto Lujan MD at OR [facility] [employer] [facility] [id number] 12/08/2024 [id number] / / [id number] documented as of this encounter Advance Directives [...] Communication Ashley Meek Jose Spouse Health Care Repr esentative (appointed verbally by patient or by statute hierarchy) Care Teams Shop Coordinator Relationship Specialty Start Date End Date Michael Hinton MD [address] [facility] [place] [address] PCP - General Family Medicine 08/07/17 documented as of this encounter
--- OUTSIDE RECORDS SUMMARY | 2025-03-05 02:11 | External Medical Summary | Summary of Care ---
Author Name Unknown Organization [facility] Address [address] [place] [address] Phone [phone] Care Team Providers Care Vice President Of Engineering Name Role Phone Michael Hinton MD Primary Care Provider [phone] Reason for Visit * Reason Onset Date Comments Acute Problem Follow Up 03/03/2025 Encounter Details Date Type Department Care Team (Late st Contact Info) Description 03/03/2025 3:00 PM EDT Scheduled Telephone [facility] [place], [facility] [address] [place] [address] Berny Power PA-C [address] [place] [address] Allergies Active Allergy Reactions Criticality Noted Date Comments Fabiano Inhibitors Cough 06/09/2017 Carbidopa High 08/30/2024 Other Reaction(s): constipation Carbidopa-Levodopa 03/17/2021 Constipation Levodopa High 08/30/2024 Other Reaction(s): constipation Nsaids Rash 05/17/2018 Contraindicated per houseperson documented as of this encounter (statuses as [...] mitral valve regurgitation,Krista 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 PLEASE SCHEDULE FOLLOW UP APPOINTMENT. [phone] 90 Capsule 1 12/11/2024 10:05 AM EST 12/09/19 25 Active OneTouch Delica Lancets 33GIndications:Typ e 2 diabetes mellitus with hemoglobin A1c goal of less than 8.0% ([facility]) Use up to 4 times [...] A1c goal of less than 8.0% ([facility]) Use as directed. 1 Kit 01/14/2025 8:27 [...] Fluocinolone Acetonide Scalp 0.01 % External Oil ([place]-Smoothe/FS Scalp)Indications: Seborrheic dermatitis of scalp Apply to [...] have staff contact office to notify of [facility] recommendation, possibly consider d.c maxzide and [...] Plan (08/08/2024 3:17 PM EDT): Follows with [facility] hematology Routine labs monitored by hem/onc Labs pending today Iron infusion 08/02 Blood transfusion 08/05 Assessment & Plan (07/15/2024 6:05 PM EDT): Follows with [facility] hematology Routine labs monitored by hem/onc Update CBC next week Assessment & Plan (03/13/2024 11:24 AM EDT): Follows with [facility] hematology Routine labs monitored by hem/onc Update CBC tomorrow PRBC transfusions 01/2024, 02/2024 Assessment & Plan (10/17/2023 9:43 AM EST): Followed closely by [facility] hematology. No identified cause of HUNTER. Weekly labs monitored by hem/onc. Most recent hgb 8.7 Assessment & Plan (05/02/2023 1:04 PM EDT): Followed closely by [facility] hematology. [...] anemia in Aug with drop to 4.3. [facility] now monitoring counts weekly. 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 Symptoms have progressed over past few months. She notes increased weakness, confusion, poor appetite. Feels like mental status has declined abruptly over the past 4-5 days. Hallucinations have increased. She is aware that symptoms could be directly related to parkinsons disease with dementia. Patient has telemed follow up tomorrow morning with neurology. is concerned with treatable causes such as UTI or anemia, patient has h/o both. Discussed hospice or more palliative type care in the past, but family had declined. She does report that patient would not want to return to the hospital, but if it comes down to it, she will call 911 to have him treated. Denies any fever/chills. Denies increased SOB. Denies urinary symptoms. Will have RNCM acute visit scheduled for tomorrow for assessment. Consider labs and urine culture. documented in this encounter Plan of Treatment Upcoming Encounters Date Type Department Care Team (Late st Contact Info) Description 03/04/2025 11:30 AM EDT Home Visit [place] at [facility] [address] [place] [address] Mayuri Grant RN [address] [facility] [place] [address] 03/04/2025 12:15 PM EDT Scheduled Telephone [facility], [facility] [address] [place] [address] [place], Nurse [place] [address] [address] [place] [address] 03/06/2025 11:30 AM EDT [facility], [facility] [address] [place] [address] Pgegy De RN [address] [place] [address] 03/07/2025 9:30 AM EDT Scheduled Telephone [facility], [facility] [address] [place] [address] Coordinator, [facility] [address] [place] [address] 03/10/2025 11:00 AM EDT [facility] Visit [facility], [facility] [address] [place] [address] Berny Power PA-C [address] [place] [address] 03/12/2025 3:30 PM EDT Home Visit [facility] at Home [address] [place] [address] Betina Jacob PA-C [address] [place] [address] 03/18/2025 11:15 AM EDT Office Visit Urology, [facility] [address] [place] [phone] Kalpesh Funes MD [address] [place] [address] 03/25/2025 9:30 AM EDT Home Visit [facility] [address] [place] [address] Peggy De, RN [address] [place] [address] 04/03/2025 7:00 AM EDT Laboratory Lab Mobile Phlebotomy [place] [address] [employer] [facility] [place] [address] [facility] Mobile Home Draw [facility] [employer] [facility] [place] [address] 05/21/2025 4:00 PM EDT Office Visit [facility] [address] [place] [address] Michael Hinton MD [address] [place] [address] Health Maintenance Due Date Last Done Comments Alpha-1 Antitrypsin 1963 Diabetic Foot Exam 03/27/2021 03/27/2020, 08/23/2018 Diabetic Eye Exam 11/01/2023 11/01/2022, , 11/01/2022, Additional history exists Albumin/Creatinine Ratio 12/27/2023 023, 03/08/2019, 04/09/2014 HbA1c 11/23/2024 05/23/2024, 03/24, 12/26/2022, Additional history exists CKD PHOS USE SMARTSET 38496 12/07/202411/23, 12/26/2022, 06/21/2021 Adult Wellness Visit 03/06/2025 03/06/2024, 11/02/19 23 O2 ASSESSMENT COMPLETED IN PAST YEAR FOR COPD 04/12/2025 04/12/2024 GFR 07/05/2025 01/02/2025, 10/25, 11/07/2024, Additional history exists Depression Screening 08/06/2025 08/06/2024 CKD HGB USE SMARTSET 54475 01/02/202601/02, 01/02/2025, 11/21/2024, Additional history exists DTap/Tdap [...] this encounter Medical Devices Implanted Type Area Laboratory Animal Facility Supervisor Device Identifier Shelf Expiration Date Model / Serial / Lot Lens Intraoc 22.5 - [id number] - [id number] Implanted:Qty: 1 on 05/22/2018 by Jasbir Maurer MD at OR [facility] Right: Eye BAUSCH 11/22/2022 [id number] / [id number] / [id number] Lens Intraoc 21.0 - [id number] - [id number] Implanted:Qty: 1 on 06/05/2018 by Jasbir Maurer MD at OR [facility] Left: Eye BAUSCH 12/20/2022 [id number] / [id number] / Duraclip 16mm Xlg Repostn - [id number] Implanted:Qty: 1 on 04/12/2024 by Edilberto Lujan MD at OR [facility] [employer] [id number] 12/08/2024 [id number] / / [id number] Duraclip 16mm Xlg Repostn - [id number] Implanted:Qty: 1 on 04/12/2024 by Edilberto Lujan MD at OR [facility] [employer] [id number] 12/08/2024 [id number] / / [id number] Duraclip 16mm Xlg Repostn - [id number] Implanted:Qty: 1 on 04/12/2024 by Edilberto Lujan MD at OR [facility] [employer] [id number] 12/08/2024 [id number] / / [id number] documented as of this encounter Advance Directives [...] patient or by statute hierarchy) Care Teams Vice President Of Engineering Relationship Specialty Start Date End Date Michael Hinton MD [address] [place] [address] PCP - General Family Medicine 08/07/17 documented as of this encounter
--- OUTSIDE RECORDS SUMMARY | 2025-03-05 02:11 | External Medical Summary | Summary of Care ---
Author Name Unknown Organization [facility] Address [address] [place] [address] Phone [phone] Care Team Providers Care Chemistry Technical Officer Name Role Phone Michael Hinton MD Primary Care Provider [phone] Reason for Visit * Reason Onset Date Comments [facility]: Maintenance 03/03/2025 Encounter Details Date Type Department Care Team (Late st Contact Info) Description 03/03/2025 Telephone 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 PLEASE SCHEDULE FOLLOW UP APPOINTMENT. [phone] Capsule 1 5 10:05 AM EST [...] than 8.0% ([facility]) Use as directed. 1 Kit 5 8:27 [...] to affected area daily as directed Active Betamethasone Dipropionate 0.05 % External OintmentIndicatio [...] have staff contact office to notify of [facility] recommendation, possibly consider d.c maxzide and maximize [...] Plan (08/08/2024 3:17 PM EDT): Follows with [facility] hematology Routine labs monitored by hem/onc Labs pending today Iron infusion 08/02 Blood transfusion 08/05 Assessment & Plan (07/15/2024 6:05 PM EDT): Follows with [facility] hematology Routine labs monitored by hem/onc Update CBC next week Assessment & Plan (03/13/2024 11:24 AM EDT): Follows with [facility] hematology Routine labs monitored by hem/onc Update CBC tomorrow PRBC transfusions 01/2024, 02/2024 Assessment & Plan (10/17/2023 9:43 AM EST): Followed closely by [facility] hematology. No identified cause of HUNTER. Weekly labs monitored by hem/onc. Most recent hgb 8.7 Assessment & Plan (05/02/2023 1:04 PM EDT): Followed closely by [facility] [...] anemia in Aug with drop to 4.3. [facility] now monitoring counts weekly. 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 She states provider called her but she was unable to speak to him as she was atpatients derm appt. She reports it was difficult getting patient out to appt, did use w/c to transport. Patient currently sitting on front porch with daughter. Spouse requests to speak to provider regarding labs/iron levels d/t hx of anemia and is questioningif he should have labs drawn. She feels anemia may also be contributing to his functional decline. While on phone, she states daughter is now assisting patient to the bathroom, states he is incontinent and "making a mess". Patients expresses concern about her ability to manage his care at home given his current condition. She states patient is adamant he will not go to ED. states she would feel better if she was able to discuss her concerns with provider. TT message sent to [facility] provider Daniel Power, made aware of above. Provider to call and follow up with . Patient has f/u telemed with neurology tomorrow [facility] RNCM on 03/06 Taryn Salcedo BSN, RN [facility] rug touch up painter Navigator * Telephone Encounter - Michael Briggs DO - 03/03/2025 10:12 AM EDT Will defer to pt's [facility] Care Team with a palliative focus as this is not an acute [facility] issue. Michael Briggs DO * Telephone Encounter - Taryn Salcedo RN - 03/03/2025 8:10 AM EDT [facility] quick mixer operator Acute Call Date: 03/03/2025 Time: 8:11 AM Name: Jesus Jose : 1945 Caller: Ashley Relationship to patient: spouse No chief complaint on file. HPI: Jesus Jose is a 79 year old male whose spouse Ashley is calling [facility] [employer] [facility] to report Parkinson's and dementia is getting worse and she doesn't know what to do. She reports patient has hallucinations but is becoming more frequent over the last four days. She reports hallucinations are not any specific time of day. Patient has auditory and visual hallucinations, hears people and sees people/objects that are not there. She repots tremors started worsening about a week ago but patient does not have them all the time. Patient has not had any recent medication changes. She also reports decline in mobility. Patient uses walker and reports it took two people to assist him out to his porch yesterday. Patient previously using walker unassisted. She reports patient fell and lost his balance approx 2 weeks ago. Denies hitting head. Son in law is a commissioned police officer and came to assist patient, assessed for injuries. Patient had wound on his arm and leg but spouse reports they are almost healed. Appetite is decreased and patient is starting to have difficulty with eating and chewing meats. Shereports patient has very good PO fluid intake. Patient is taking medications without issue. Denies urinary burning/frequency/urgency. Denies foul odor or hematuria. Patient is having normal, regular BMs. Denies black tarry stools. Slight swelling to right foot but states it is better than it has been. Denies respiratory symptoms. Denies SOB or CP/pressure. She reports she has not checked BS, has to locate glucometer veterinary surgery technician. She states last BS she checked a few weeks ago was WNL. Patient has RPM equipment but does not feel he is safe to stand on scale.She checked BP while on phone, BP-141/80 HR-109, pulse ox does not work. She states patient is always cold. Denies fever,skin is cool to touch. Patient has was taking Magic swizzle for sores on tongue. Patient will occasionally c/o tongue discomfort. reports she does not see any sores on tongue. Patient tells "I know I'm getting worse", referring to his Parkinson's. Patient is currently taking Aricept and Amantadine for Parkinson's/dementia. Patient was seeing neurologist Dr. Shannon Bowman at [facility] but will be seeing a new provider for next appjuly. Patient has telemed visits as he is unable to travel to [place] for appts. Spouse states she was told by neurology there is not much more they can do with medications and cannot increase. Patient has derm appt today for worsening eczema. She is going to have daughter help assist patientto car and will get w/c to transport into office. Patient has orders for labs ordered by Dr. Ventura/kaz at [facility] to be drawn by mobile lab the daybefore hem/onc appt on 04/04. Patient being seen by hem/onc for anemia. Spouse overwhelmed at times but managing patients condition. Emotional support provided. Next RNCM HV on 03/25, is requesting HV this week to see patient, if possible. Message sent to scheduling. Instructed to call neurology to see if patient can get sooner telemed appt. She states she will call after hanging up with intake. Nursing Assessment: Patient's chief complaint for this call: Other, describe worsening Parkinson's symptoms, hallucinations Pain Denies pain Baseline Assessment Able to performing ADLs at baseline (walking, daily tasks, etc.): No Chief Complaint is related to a chronic condition: Yes Chronic Condition: Parkinson's Chief Complaint is a change in baseline: Yes, worsening hallucinations Patient prescribed oxygen? Yes, 2L/min at night Patient has been ordered DME equipment (assistive devices, respiratory equipment, etc.): Yes Describe DME devices: walker, oxygen concentrator Patient is using DME device as directed: Yes Medication Reconciliation: (See medication list) Received flu shot this season: Unknown Taking medication as ordered: Yes Medications ordered/taking to treat reason for call: No Heart failure symptoms: No COPD exacerbation symptoms: No Reinforcement Education: Sending to [facility]/care team for any further recs Take all medications as directed Safety/fall precautions Use walker with supervision at all times Encourage PO fluids to stay hydrated Softer-textured foods Provide redirection/reassurance Follow up with neuro for sooner appt. to discuss concerns Call back with new or worsening symptoms Treatment/Plan: (need to report) Level of call: Non-Acute Recommended treatment plan: Clinical advice given over the phone Call back instructions provided to patient. Taryn PRINCE, RN [facility] rug touch up painter Navigator documented in this encounter Plan of Treatment Upcoming Encounters Date Type Department Care Team (Late st Contact Info) Description 03/04/2025 11:30 AM EDT [facility] Visit [facility], [facility] [address] [place] [address] Mayuri Grant RN [address] [place] [address] 03/04/2025 12:15 PM EDT Scheduled Telephone [facility], [facility] [address] [place] [address] Region, Nurse [address] [place] [address] 03/06/2025 11:30 AM EDT Home Visit [facility], [facility] [address] [place] [address] Peggy De RN [address] [place] [address] 03/07/2025 9:30 AM EDT Scheduled Telephone [facility], [facility] [address] [place] [address] Coordinator, [place] [address] [place] [address] 03/10/2025 11:00 AM EDT Home Visit [facility], [facility] [address] [place] [address] Berny Power PA-C [address] [place] [address] 03/12/2025 3:30 PM EDT Home Visit Care at Home [address] [place], [place] [id number] Betina Jacob PA-C [address] [place], [place] [id number] 03/18/2025 11:15 AM EDT Office Visit Urology, [facility] [address] [place] [phone] Kalpesh Funes MD [address] [facility] [place] [address] 03/25/2025 9:30 AM EDT Home Visit [facility], [facility] [address] [place] [address] Peggy De RN [address] [place] [address] 04/03/2025 7:00 AM EDT Laboratory Lab Mobile Phlebotomy [address] [place] [address] [facility] Mobile Home Draw [facility] [place] [address] 05/21/2025 4:00 PM EDT Office Visit Family Practice [facility] [address] [place] [address] Michael Hinton MD [address] [place] [address] Health Maintenance Due Date Last Done Comments Alpha-1 Antitrypsin 1963 Diabetic Foot Exam 03/27/2021 03/27/2020, 08/23/2018 Diabetic Eye Exam 11/01/2023 11/01/2022, , 11/01/2022, Additional history exists Albumin/Creatinine Ratio 12/27/2023 023, 03/08/2019, 04/09/2014 HbA1c 11/23/2024 05/23/2024, 03/24, 12/26/2022, Additional history exists CKD PHOS USE SMARTSET 05336 12/07/202411/23, 12/26/2022, 06/21/2021 Adult Wellness Visit 03/06/2025 03/06/2024, 11/02/19 23 O2 ASSESSMENT COMPLETED IN PAST YEAR FOR COPD 04/12/2025 04/12/2024 GFR 07/05/2025 01/02/2025, 10/25, 11/07/2024, Additional history exists Depression Screening 08/06/2025 08/06/2024 CKD HGB USE SMARTSET 14605 01/02/202601/02, 01/02/2025, 11/21/2024, Additional history exists DTap/Tdap [...] encounter Medical Devices Implanted Type Area Hand Former Device Identifier Shelf Expiration Date Model / Serial / Lot Lens Intraoc 22.5 - [id number] - [id number] Implanted:Qty: 1 on 05/22/2018 by Jasbir Maurer MD at OR [facility] Right: Eye BAUSCH 11/22/2022 [id number] / [id number] / [id number] Lens Intraoc 21.0 - [id number] - [id number] Implanted:Qty: 1 on 06/05/2018 by Jasbir Maurer MD at OR [facility] Left: Eye BAUSCH 12/20/2022 [id number] / [id number] / Duraclip 16mm Xlg Repostn - [id number] Implanted:Qty: 1 on 04/12/2024 by Edilberto Lujan MD at OR [facility] [employer] [id number] 12/08/2024 [id number] / / [id number] Duraclip 16mm Xlg Repostn - [id number] Implanted:Qty: 1 on 04/12/2024 by Edilberto Lujan MD at OR [facility] [employer] [id number] 12/08/2024 [id number] / / [id number] Duraclip 16mm Xlg Repostn - [id number] Implanted:Qty: 1 on 04/12/2024 by Edilberto Lujan MD at OR [facility] [employer] [id number] 12/08/2024 [id number] / / [id number] documented as of this encounter Advance Directives [...] patient or by statute hierarchy) Care Teams Chemistry Technical Officer Relationship Specialty Start Date End Date Michael Hinton MD [address] [place] [address] PCP - General Family Medicine 08/07/17 documented as of this encounter
--- OUTSIDE RECORDS SUMMARY | 2025-03-05 02:11 | External Medical Summary | Summary of Care ---
Author Name Unknown Organization [facility] Address [address] [place] [address] Phone [phone] Care Team Providers Care Music Autographer Name Role Phone Micheal Hinton MD Primary Care Provider [phone] Reason for Visit * Reason Onset Date Comments [facility]: Maintenance 03/03/2025 Encounter Details Date Type Department Care Team (Late st Contact Info) Description 03/03/2025 Telephone [facility], [facility] [address] [place] [address] Taryn Salcedo RN [address] [place] [facility] [place] [address] [facility]: Maintenance Allergies Active Allergy Reactions Criticality Noted Date Comments Fabiano Inhibitors Cough 06/09/2017 Carbidopa High 08/30/2024 Other Reaction(s): constipation Carbidopa-Levodopa 03/17/2021 Constipation Levodopa High 08/30/2024 Other Reaction(s): constipation Nsaids Rash 05/17/2018 Contraindicated per sheep or calf grader documented as of this encounter (statuses as [...] mitral valve regurgitation,Cor onary artery disease involving peoria coronary artery of pe[place] heart without angina pectoris,Stage 3b chronic kidney disease (HCC) Take 2 tablets by mouth daily and as directed for weight gain/fluid 025 Active Amantadine HCl 100 MG Oral Capsule (Symmetrel) Take 1 capsule (100 mg total) by mouth daily . PLEASE SCHEDULE FOLLOW UP APPOINTMENT. [phone] Capsule 1 5 10:05 AM EST [...] than 8.0% ([facility]) Use as directed. 1 Kit 5 8:27 [...] have staff contact office to notify of [facility] recommendation, possibly consider d.c maxzide and [...] Plan (08/08/2024 3:17 PM EDT): Follows with [facility] hematology Routine labs monitored by hem/onc Labs pending today Iron infusion 08/02 Blood transfusion 08/05 Assessment & Plan (07/15/2024 6:05 PM EDT): Follows with [facility] hematology Routine labs monitored by hem/onc Update CBC next week Assessment & Plan (03/13/2024 11:24 AM EDT): Follows with [facility] hematology Routine labs monitored by hem/onc Update CBC tomorrow PRBC transfusions 01/2024, 02/2024 Assessment & Plan (10/17/2023 9:43 AM EST): Followed closely by [facility] hematology. No identified cause of HUNTER. Weekly labs monitored by hem/onc. Most recent hgb 8.7 Assessment & Plan (05/02/2023 1:04 PM EDT): Followed closely by [facility] hematology. [...] anemia in Aug with drop to 4.3. [facility] now monitoring counts weekly. 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 TT message sent to [facility] provider Daniel Power, made aware of above. Provider to call and follow up with . Patient has f/u telemed with neurology tomorrow [facility] RNCM on 03/06 Taryn Salcedo BSN, RN [facility] animal science professor Navigator * Telephone Encounter - Michael Briggs DO - 03/03/2025 10:12 AM EDT Will defer to pt's [facility] Care Team with a palliative focus as this is not an acute [facility] issue. Michael Briggs DO * Telephone Encounter - Taryn Salcedo RN - 03/03/2025 8:10 AM EDT [facility] inventory accountant Acute Call Date: 03/03/2025 Time: 8:11 AM Name: Jesus [place] : 1945 Caller: Ashley Relationship to patient: spouse No chief complaint on file. HPI: Jesus Jose is a 79 year old male whose spouse Ashley is calling [facility] Int[facility] to report Parkinson's and [...] hitting head. Son in law is a safety patrol officer and came to assist patient, assessed [...] not checked BS, has to locate glucometer communication lecturer. She states last BS she checked a [...] was seeing neurologist Dr. Shannon Bowman at [facility] but will be seeing a new provider for next appjuly. Patient has telemed visits as he is unable to travel to [place] for appts. Spouse states she was told by neurology there is not much more they can do with medications and cannot increase. Patient has derm appt today for worsening eczema. She is going to have daughter help assist patientto car and will get w/c to transport into office. Patient has orders for labs ordered by Dr. Ventura/kaz at [facility] to be drawn by mobile lab the [...] instructions provided to patient. Taryn PRINCE, RN [facility] animal science professor Navigator documented in this encounter Plan of Treatment Upcoming Encounters Date Type Department Care Team (Late st Contact Info) Description 03/04/2025 11:30 AM EDT [facility] Visit [facility], [facility] [address] [place] [address] Mayuri Grant RN [address] [place] [address] 03/04/2025 12:15 PM EDT Scheduled Telephone [facility], [facility] [address] [place] [address] Region, Nurse [address] [place] [address] 03/06/2025 11:30 AM EDT [facility] Visit [facility], [facility] [address] [place] [address] Peggy De RN [address] [place] [address] 03/07/2025 9:30 AM EDT Scheduled Telephone [facility], [facility] [address] [place] [address] Coordinator, [place] [address] [place] [address] 03/10/2025 11:00 AM EDT [facility] Visit [facility], [facility] [address] [place] [address] Berny Power PA-C [address] [place] [address] 03/12/2025 3:30 PM EDT Home Visit Care at Home [address] [place], [place] [id number] Betina Jacob PA-C [address] [place], [place] [id number] 03/18/2025 11:15 AM EDT Office Visit Urology, [facility] [address] [place] [phone] Kalpesh Funes MD [address] [facility] [place] [address] 03/25/2025 9:30 AM EDT [facility] Visit [facility], [facility] [address] [place] [address] Peggy De RN [address] [place] [address] 04/03/2025 7:00 AM EDT Laboratory Lab Mobile Phlebotomy [address] [place] [address] [facility] Mobile Home Draw [facility] [place] [address] 05/21/2025 4:00 PM EDT Office Visit Family Practice [facility] [address] [place] [address] Michael Hinton MD [address] [place] [address] Health Maintenance Due Date Last Done Comments Alpha-1 Antitrypsin 1962 Diabetic Foot Exam 03/27/2021 03/27/2020, 08/23/2018 Diabetic Eye Exam 11/01/2023 11/01/2022, , 11/01/2022, Additional history exists Albumin/Creatinine Ratio 12/27/2023 023, 03/08/2019, 04/09/2014 HbA1c 11/23/2024 05/23/2024, 03/24, 12/26/2022, Additional history exists CKD PHOS USE SMARTSET 87417 12/07/202411/23, 12/26/2022, 06/21/2021 Adult Wellness Visit 03/06/2025 03/06/2024, 11/02/19 23 O2 ASSESSMENT COMPLETED IN PAST YEAR FOR COPD 04/12/2025 04/12/2024 GFR 07/05/2025 01/02/2025, 10/25, 11/07/2024, Additional history exists Depression Screening 08/06/2025 08/06/2024 CKD HGB USE SMARTSET 06979 01/02/202601/02, 01/02/2025, 11/21/2024, Additional history exists DTap/Tdap [...] this encounter Medical Devices Implanted Type Area Insolvency Practitioner Device Identifier Shelf Expiration Date Model / Serial / Lot Lens Intraoc 22.5 - [id number] - [id number] Implanted:Qty: 1 on 05/22/2018 by Jasbir Maurer MD at OR [facility] Right: Eye BAUSCH 11/22/2022 [id number] / [id number] / [id number] Lens Intraoc 21.0 - [id number] - [id number] Implanted:Qty: 1 on 06/05/2018 by Jasbir Maurer MD at OR [facility] Left: Eye BAUSCH 12/20/2022 [id number] / [id number] / Duraclip 16mm Xlg Repostn - [id number] Implanted:Qty: 1 on 04/12/2024 by Edilberto Lujan MD at OR [facility] [employer] [id number] 12/08/2024 [id number] / / [id number] Duraclip 16mm Xlg Repostn - [id number] Implanted:Qty: 1 on 04/12/2024 by Edilberto Lujan MD at OR [facility] [employer] [id number] 12/08/2024 [id number] / / [id number] Duraclip 16mm Xlg Repostn - [id number] Implanted:Qty: 1 on 04/12/2024 by Edilberto Lujan MD at OR [facility] [employer] [id number] 12/08/2024 [id number] / / [id number] documented as of this encounter Advance Directives [...] patient or by statute hierarchy) Care Teams Music Autographer Relationship Specialty Start Date End Date Michael Hinton MD [address] [place] [address] PCP - General Family Medicine 08/07/17 documented as of this encounter
--- OUTSIDE RECORDS SUMMARY | 2025-03-05 02:12 | External Medical Summary | Summary of Care ---
Author Name Unknown Organization [facility] Address [address] [place] [address] Phone [phone] Care Team Providers Care Emt Basic Name Role Phone Michael Hinton MD Primary Care Provider [phone] Reason for Visit * Reason Onset Date Comments Appointment 03/03/2025 Encounter Details Date Type Department Care Team (Late st Contact Info) Description 03/03/2025 Telephone [facility] [place] [address] [place] [address] [id number] Ashley Carmen, LARRY [address] [place] [address] Appointment (//) Allergies Active Allergy Reactions Criticality Noted Date Comments Fabiano Inhibitors Cough 06/09/2017 Carbidopa High 08/30/2024 Other Reaction(s): constipation Carbidopa-Levodopa 03/17/2021 Constipation Levodopa High 08/30/2024 Other Reaction(s): constipation Nsaids Rash 05/17/2018 Contraindicated per cloth reeler documented as of this encounter (statuses as of 03/03/2025) Medications DIURETIC TITRATION PLAN If no improvement [...] Patient taking differently:250 mg OralDaily(Non-Specified), Reported on 02/18/2025 Metoprolol Succinate ER 50 MG Oral Tablet [...] mitral valve regurgitation,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 PLEASE SCHEDULE FOLLOW UP APPOINTMENT. [phone] 90 Capsule 1 5 10:05 AM EST 025 Active Jeferson Gilliland 33GIndications:Ty pe 2 diabetes mellitus with hemoglobin [...] goal of less than 8.0% (HCC) Use as directed. 1 Kit 5 8:27 [...] as of this encounter (statuses as of 03/03/2025) Active Problems Problem Noted Date Diagnosed Date [...] have staff contact office to notify of [facility] recommendation, possibly consider dlucho maxzide and maximize lasix? Suspect his dry [...] Plan (08/08/2024 3:17 PM EDT): Follows with [place] [facility] Routine labs monitored by hem/onc Labs pending today Iron infusion 08/02 Blood transfusion 08/05 Assessment & Plan (07/15/2024 6:05 PM EDT): Follows with [facility] hematology Routine labs monitored by hem/onc Update CBC next week Assessment & Plan (03/13/2024 11:24 AM EDT): Follows with [facility] hematology Routine labs monitored by hem/onc Update CBC tomorrow PRBC transfusions 01/2024, 02/2024 Assessment & Plan (10/17/2023 9:43 AM EST): Followed closely by [facility] hematology. No identified cause of HUNTER. Weekly labs monitored by hem/onc. Most recent hgb 8.7 Assessment & Plan (05/02/2023 1:04 PM EDT): Followed closely by [facility] hematology. No identified cause of HUNTRE. Weekly labs monitored by hem/onc. Most recent hgb stable 10.5. Assessment & Plan (03/28/2023 1:27 PM EDT): Received blood transfusion 03/24 -will follow-up CBC on 03/30 -continue ferrous sulfate. Dose once daily. Med list updated Assessment & Plan (10/19/2022 1:20 PM EST): Followed by hem/onc. Had severe anemia in Aug with drop to 4.3. [facility] now monitoring counts weekly. Pt very pale [...] (09/01/2024): Follows with Dr Shannon Zhang in [place] via telemed for PD Assessment & Plan [...] knees 03/21/2018 Coronary artery disease invo lving chinik coronary artery of chinik heart without angina pectoris 03/21/2018 Assessment & [...] as of this encounter (statuses as of 03/03/2025) Resolved Problems Problem Noted Date Diagnosed Date [...] scanned document from 11/13/[address] [place], [facility]. Coronary artery [...] as of this encounter (statuses as of 03/03/2025) Immunizations Name Administration Dates Next Due COVID-19 [...] No 03/07/2024 Does the household have a [facility] hospit[facility] source of income? 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 Not on file Not on fi le Not on file Not on file Not on file Not on file documented as of this encounter Miscellaneous Notes * Telephone Encounter - Ashley Carmen OSA - 03/03/2025 11:08 AM EDT TT request to schedule a ret hv with RNRHIANNON and I found 03/06@1130 and called and spouse was agreeable documented in this encounter Plan of Treatment Upcoming Encounters Date Type Department Care Team (Late st Contact Info) Description 03/06/2025 11:30 AM EDT Home Visit [facility], [facility] [address] [id number] Peggy De RN [address] [place] [address] 03/07/2025 9:30 AM EDT Scheduled Telephone [facility] [place], [facility] [address] [address] Coordinator, [facility] [address] [address] 03/10/2025 11:00 AM EDT Home Visit [facility] [place], [facility] [address] [address] Berny Power PA-C [address] [address] 03/12/2025 3:30 PM EDT Home Visit Care at Home [address] [place], [place] [phone] Betina Jacob PA-C [address], [place] [phone] 03/18/2025 11:15 AM EDT Office Visit Urology, [facility] [address] [place] [phone] Kalpesh Funes MD [address] [place] [address] 03/25/2025 9:30 AM EDT Home Visit [facility] [place], [facility] [address] [place] [address] Peggy De RN [address] [place] [address] 04/03/2025 7:00 AM EDT Laboratory Lab Mobile Phlebotomy [address] [place] [address] [facility] Mobile Home Draw [address] [place] [address] [place] [address] 05/21/2025 4:00 PM EDT Office Visit Family Practice [facility] [address] [place] [address] Michael Hinton MD [address] [place] [address] Health Maintenance Due Date Last Done Comments Alpha-1 Antitrypsin 1962 Diabetic Foot Exam 03/27/2021 03/27/2020, 08/23/2018 Diabetic Eye Exam 11/01/2023 11/01/2022, , 11/01/2022, Additional history exists Albumin/Creatinine Ratio 12/27/2023 023, 03/08/2019, 04/09/2014 HbA1c 11/23/2024 05/23/2024, 03/24, 12/26/2022, Additional history exists CKD PHOS USE SMARTSET 12739 12/07/202411/23, 12/26/2022, 06/21/2021 Adult Wellness Visit 03/06/2025 03/06/2024, 11/02/19 23 O2 ASSESSMENT COMPLETED IN PAST YEAR FOR COPD 04/12/2025 04/12/2024 GFR 07/05/2025 01/02/2025, 10/25, 11/07/2024, Additional history exists Depression Screening 08/06/2025 08/06/2024 CKD HGB USE SMARTSET 48510 01/02/202601/02, 01/02/2025, 11/21/2024, Additional history exists DTap/Tdap [...] this encounter Medical Devices Implanted Type Area Maintenance Welder Device Identifier Shelf Expiration Date Model / Serial / Lot Lens Intraoc 22.5 - [id number] - [id number] Implanted:Qty: 1 on 05/22/2018 by Jasbir Maurer MD at OR [facility] Right: Eye BAUSCH 11/22/2022 [id number] / [id number] / [id number] Lens Intraoc 21.0 - [id number] - [id number] Implanted:Qty: 1 on 06/05/2018 by Jasbir Maurer MD at OR [facility] Left: Eye [facility] 12/20/2022 [id number] / [id number] / Duraclip 16mm Xlg Repostn - [id number] Implanted:Qty: 1 on 04/12/2024 by Edilberto Lujan MD at OR [facility] [employer] [place] [id number] 12/08/2024 [id number] / / [id number] Duraclip 16mm Xlg Repostn - [id number] Implanted:Qty: 1 on 04/12/2024 by Edilberto Lujan MD at OR [facility] [employer] [id number] 12/08/2024 [id number] / / [id number] Duraclip 16mm Xlg Repostn - [id number] Implanted:Qty: 1 on 04/12/2024 by Edilberto Lujan MD at OR [facility] [employer] [id number] 12/08/2024 [id number] / / [id number] documented as of this encounter Advance Directives [...] patient or by statute hierarchy) Care Teams Emt Basic Relationship Specialty Start Date End Date Michael Hinton MD [address] [place] [address] PCP - General Family Medicine 08/07/17 documented as of this encounter
--- OUTSIDE RECORDS SUMMARY | 2025-03-05 02:12 | External Medical Summary | Summary of Care ---
Author Name Unknown Organization [facility] Address [address] [place] [address] Phone [phone] Care Team Providers Care Production Material Coordinator Name Role Phone Michael Hinton MD Primary Care Provider [phone] Reason for Visit * Reason Onset Date Comments [facility]: Maintenance 02/28/2025 Encounter Details Date Type Department Care Team (Late st Contact Info) Description 02/28/2025 Telephone [facility], [address] [address] Regina Tobar, HAY SORTER [address] [place] [address] [facility]: Maintenance Allergies Active Allergy Reactions Criticality Noted Date Comments Fabiano Inhibitors Cough 06/09/2017 Carbidopa High 08/30/2024 Other Reaction(s): constipation Carbidopa-Levodopa 03/17/2021 Constipation Levodopa High 08/30/2024 Other Reaction(s): constipation Nsaids Rash 05/17/2018 Contraindicated per armoring machine operator documented as of this encounter (statuses as of 02/28/2025) Medications DIURETIC TITRATION PLAN If no improvement on day 3, contact heart failure managing provider. 1 Each 05/02/20 23 Active Betamethasone Dipropionate 0.05 % External OintmentIndication s:Inflamed seborrheic keratosis APPLY TO SKIN LESIONS AND SCALP LESIONS UP TO TWO TIMES A DAY FOR NO LONGER THAN 2 WEEKS AT A TIME FOR ITCH. (THEN TAKE A 2 WEEK BREAK) 45 g 2 11/07/2023 10:13 AM EST 11/06/19 24 Active Allopurinol 300 MG Oral Tablet (Zyloprim) [...] mitral valve regurgitation,Krista nary artery disease involving hamilton coronary artery of hamilton heart without angina pectoris,Stage 3b chronic kidney disease (HCC) Take 2 tablets by mouth daily and as directed for weight gain/fluid 10/25/19 25 Active Amantadine HCl 100 MG Oral Capsule (Symmetrel) Take 1 capsule (100 mg total) by mouth daily . PLEASE SCHEDULE FOLLOW UP APPOINTMENT. [phone] Capsule 1 12/11/2024 10:05 AM EST [...] 8.0% (HCC) Use as directed. 1 Kit 01/14/2025 8:27 AM EDT 01/11/20 25 Active Escitalopram Oxalate 20 MG Oral Tablet (Lexapro) take one tablet by mouth daily in the morning 90 Tablet 3 01/24/2025 4:55 PM EDT 01/24/20 25 Active Magic Swizzle (Lidocaine-Benadry l-Maalox) oral solution Swish and spit 15 mL in the morning and 15 mL before bedtime. 90 mL 5 02/12/20 25 Active Donepezil HCl 10 MG Oral Tablet Disintegrating (Aricept Odt) Place 1 Tablet on tongue in the morning. Take with largest meal of the day.. Active CeraVe Itch Relief 1 % External Cream (Pramoxine HCl) Apply topically to affected area. Apply to affected area daily as directed Active documented as of this encounter (statuses as of 02/28/2025) Active Problems Problem Noted Date Diagnosed Date [...] have staff contact office to notify of [facility] recommendation, possibly consider dlucho maxzide and maximize [...] Plan (08/08/2024 3:17 PM EDT): Follows with [facility] hematology Routine labs monitored by hem/onc Labs pending today Iron infusion 08/02 Blood transfusion 08/05 Assessment & Plan (07/15/2024 6:05 PM EDT): Follows with [facility] hematology Routine labs monitored by hem/onc Update CBC next week Assessment & Plan (03/13/2024 11:24 AM EDT): Follows with [facility] hematology Routine labs monitored by hem/onc Update CBC tomorrow PRBC transfusions 01/2024, 02/2024 Assessment & Plan (10/17/2023 9:43 AM EST): Followed closely by [facility] hematology. No identified cause of HUNTER. Weekly labs monitored by hem/onc. Most recent hgb 8.7 Assessment & Plan (05/02/2023 1:04 PM EDT): Followed closely by [facility] hematology. No identified cause of HUNTER. Weekly labs monitored by hem/onc. Most recent hgb stable 10.5. Assessment & Plan (03/28/2023 1:27 PM EDT): Received blood transfusion 03/24 -will follow-up CBC on 03/30 -continue ferrous sulfate. Dose once daily. Med list updated Assessment & Plan (10/19/2022 1:20 PM EST): Followed by hem/onc. Had severe anemia in Aug with drop to 4.3. [facility] now monitoring counts weekly. Pt very [...] (09/01/2024): Follows with Dr Shannon Zhang in [place] via telemed for PD Assessment & Plan [...] knees 03/21/2018 Coronary artery disease invo lving hamilton coronary artery of hamilton heart without angina pectoris 03/21/2018 Assessment & [...] as of this encounter (statuses as of 02/28/2025) Resolved Problems Problem Noted Date Diagnosed Date [...] (11/13/2012): See scanned document from 11/13/2012 from [facility] [...] as of this encounter (statuses as of 02/28/2025) Immunizations Name Administration Dates Next Due COVID-19 mRNA, LNP-s, No Pre serve, 2-Dose Series ([employer]) 11/03/2021,12/19/2020,11/28/2020 Covid-19 Ad26, Single Dose (Soy/J&J) 12/19/2020,11/28/2020 [...] 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 Call to follow up CHM devices not transmitting Spoke to spouse and states his parkinson has been getting worse and hasn't been using she will start using again as she needs to keep better eye on the weight Follow up call in a week to see if resumed using devices documented in this encounter Plan of Treatment Upcoming Encounters Date Type Department Care Team (Late st Contact Info) Description 03/03/2025 2:15 PM EDT Office Visit Dermatology [facility] [address] [facility] [place] [address] Osvaldo Liu MD [address] [facility] [place] [address] 03/07/2025 9:30 AM EDT Scheduled Telephone [facility], [facility] [address] [place] [address] Coordinator, [facility] [address] [place] [address] 03/12/2025 3:30 PM EDT [facility] [address] [facility] [address] Betina Jacob PA-C [address] [facility] [address] 03/18/2025 11:15 AM EDT Office Visit Urology, [facility] [address] [place] [phone] Kalpesh Funes MD [address] [place] [address] 03/25/2025 9:30 AM EDT Home Visit [facility] [place], [facility] [address] [place] [address] Peggy De RN [address] [place] [address] 04/03/2025 7:00 AM EDT Laboratory Lab Mobile Phlebotomy [place] [address] [employer] [facility] [place] [address] [facility] Mobile Home Draw [facility] [place] [address] 05/21/2025 4:00 PM EDT Office Visit Family Practice [facility] [address] [place] [address] Michael Hinton MD [address] [place] [address] Health Maintenance Due Date Last Done Comments Alpha-1 Antitrypsin 1962 Diabetic Foot Exam 03/27/2021 03/27/2020, 08/23/2018 Diabetic Eye Exam 11/01/2023 11/01/2022, , 11/01/2022, Additional history exists Albumin/Creatinine Ratio 12/27/2023 023, 03/08/2019, 04/09/2014 HbA1c 11/23/2024 05/23/2024, 03/24, 12/26/2022, Additional history exists CKD PHOS USE SMARTSET 02071 12/07/202411/23, 12/26/2022, 06/21/2021 Adult Wellness Visit 03/06/2025 03/06/2024, 11/02/19 23 O2 ASSESSMENT COMPLETED IN PAST YEAR FOR COPD 04/12/2025 04/12/2024 GFR 07/05/2025 01/02/2025, 10/25, 11/07/2024, Additional history exists Depression Screening 08/06/2025 08/06/2024 CKD HGB USE SMARTSET 95333 01/02/202601/02, 01/02/2025, 11/21/2024, Additional history exists DTap/Tdap [...] this encounter Medical Devices Implanted Type Area Machine Cloth Measurer Device Identifier Shelf Expiration Date Model / Serial / Lot Lens Intraoc 22.5 - [id number] - [id number] Implanted:Qty: 1 on 05/22/2018 by Jasbir Maurer MD at [facility] Right: Eye [employer]CH 11/22/2022 [id number] / [id number] / [id number] Lens Intraoc 21.0 - [id number] - [id number] Implanted:Qty: 1 on 06/05/2018 by Jasbir Maurer MD at OR [facility] Left: Eye BAUSCH 12/20/2022 [id number] / [id number] / Duraclip 16mm Xlg Repostn - [id number] Implanted:Qty: 1 on 04/12/2024 by Edilberto Lujan MD at OR [facility] [employer] [id number] 12/08/2024 [id number] / / [id number] Duraclip 16mm Xlg Repostn - [id number] Implanted:Qty: 1 on 04/12/2024 by Edilberto Lujan MD at OR [facility] [employer] [id number] 12/08/2024 [id number] / / [id number] Duraclip 16mm Xlg Repostn - [id number] Implanted:Qty: 1 on 04/12/2024 by Edilberto uLjan MD at OR [facility] [employer] [id number] 12/08/2024 [id number] / / [id number] documented as of this encounter Advance Directives [...] patient or by statute hierarchy) Care Teams Production Material Coordinator Relationship Specialty Start Date End Date Michael Hinton MD [address] [place] [address] PCP - General Family Medicine 08/07/17 documented as of this encounter
--- OUTSIDE RECORDS SUMMARY | 2025-03-05 02:12 | External Medical Summary | Summary of Care ---
Author Name Unknown Organization [facility] Address [address] [place] [address] Phone [phone] Care Team Providers Care Esthetics Instructor Name Role Phone Michael Hinton MD Primary Care Provider [phone] Reason for Visit * Reason Onset Date Comments [facility]: Maintenance 03/03/2025 Encounter Details Date Type Department Care Team (Late st Contact Info) Description 03/03/2025 Telephone [facility], [facility] [address] [place] [facility] [place] [address] Taryn Salcedo RN [address] [facility] [place] [address] [facility]: Maintenance Allergies Active Allergy Reactions Criticality Noted Date Comments Fabiano Inhibitors Cough 06/09/2017 Carbidopa High 08/30/2024 Other Reaction(s): constipation Carbidopa-Levodopa 03/17/2021 Constipation Levodopa High 08/30/2024 Other Reaction(s): constipation Nsaids Rash 05/17/2018 Contraindicated per carding machine feeder documented as of this encounter (statuses as [...] mitral valve regurgitation,Krista nary artery disease involving eek coronary artery of eek heart without angina pectoris,Stage 3b chronic kidney disease (HCC) Take 2 tablets by mouth daily and as directed for weight gain/fluid 10/25/19 25 Active Amantadine HCl 100 MG Oral Capsule (Symmetrel) Take 1 capsule (100 mg total) by mouth daily . PLEASE SCHEDULE FOLLOW UP APPOINTMENT. [phone] Capsule 1 12/11/2024 10:05 AM EST [...] have staff contact office to notify of [facility] recommendation, possibly consider dlucho maxzidfe and maximize lasix? Suspect his dry wt [...] Plan (08/08/2024 3:17 PM EDT): Follows with [facility] hematology Routine labs monitored by hem/onc Labs pending today Iron infusion 08/02 Blood transfusion 08/05 Assessment & Plan (07/15/2024 6:05 PM EDT): Follows with [facility] hematology Routine labs monitored by hem/onc Update CBC next week Assessment & Plan (03/13/2024 11:24 AM EDT): Follows with [facility] hematology Routine labs monitored by hem/onc Update CBC tomorrow PRBC transfusions 01/2024, 02/2024 Assessment & Plan (10/17/2023 9:43 AM EST): Followed closely by [facility] hematology. No identified cause of HUNTER. Weekly labs monitored by hem/onc. Most recent hgb 8.7 Assessment & Plan (05/02/2023 1:04 PM EDT): Followed closely by [facility] hematology. [...] anemia in Aug with drop to 4.3. [facility] now monitoring counts weekly. Pt very [...] (09/01/2024): Follows with Dr Shannon Zhang in [place] via telemed for PD Assessment & Plan [...] of eek heart without angina pectoris 03/21/2018 Assessment & [...] scanned document from 11/13/[address] [facility]. 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 Michael Briggs DO * Telephone Encounter - Taryn Salcedo RN - 03/03/2025 8:10 AM EDT [facility] box inspector Acute Call Date: 03/03/2025 Time: 8:11 AM Name: Jesus Jose : 1945 Caller: Ashley Relationship to patient: spouse No chief complaint on file. HPI: Jesus Jose is a 79 year old male whose spouse Ashley is calling [facility] to report Parkinson's and [...] hitting head. Son in law is a master police detective and came to assist patient, assessed for [...] not checked BS, has to locate glucometer automotive specialty technician. She states last BS she checked [...] was seeing neurologist Dr. Shannon Bowman at [facility] but will be seeing a new provider for next appjuly. Patient has telemed visits as he is unable to travel to [place] for appts. Spouse states she was told by neurology there is not much more they can do with medications and cannot increase. Patient has derm appt today for worsening eczema. She is going to have daughter help assist patientto car and will get w/c to transport into office. Patient has orders for labs ordered by Hem/kaz at [facility] to be drawn by mobile lab [...] instructions provided to patient. Taryn PRINCE, RN [facility] dealership manager Navigator documented in this encounter Plan of Treatment Upcoming Encounters Date Type Department Care Team (Late st Contact Info) Description 03/03/2025 2:15 PM EDT Office Visit Dermatology [facility] [address] [facility] [address] [place] [address] Osvaldo Liu MD [address] [facility] [place] [address] 03/03/2025 3:00 PM EDT Scheduled Telephone [facility] [address] [place] [address] Berny Power PA-C [address] [place] [address] 03/06/2025 11:30 AM EDT [facility] Visit [facility], [facility] [address] [place] [address] Peggy De, RN [address] [place] [address] 03/07/2025 9:30 AM EDT Scheduled Telephone [facility], [facility] [address] [place] [address] Coordinator, [facility] [address] [place] [address] 03/10/2025 11:00 AM EDT Home Visit [facility], [facility] [address] [place] [address] Berny Power PA-C [address] [place] [address] 03/12/2025 3:30 PM EDT Home Visit Care at Home [address], [place] [id number] Betina Jacob PA-C [address] [place] [address] 03/18/2025 11:15 AM EDT Office Visit Urology, [facility] [address] [place] [id number] Kalpesh Funes MD [address] [place] [address] 03/25/2025 9:30 AM EDT Home Visit [facility], [facility] [address] [place] [address] Peggy De RN [address] [place] [address] 04/03/2025 7:00 AM EDT Laboratory Lab Mobile Phlebotomy [place] [address] [place] [place] [address] [place], [facility] Mobile Home Draw [address] [facility] [place] [address] 05/21/2025 4:00 PM EDT Office Visit Family [facility] [address] [place] [address] Michael Hinton MD [address] [place] [address] Health Maintenance Due Date Last Done Comments Alpha-1 Antitrypsin 1962 Diabetic Foot Exam 03/27/2021 03/27/2020, 08/23/2018 Diabetic Eye Exam 11/01/2023 11/01/2022, , 11/01/2022, Additional history exists Albumin/Creatinine Ratio 12/27/2023 023, 03/08/2019, 04/09/2014 HbA1c 11/23/2024 05/23/2024, 03/24, 12/26/2022, Additional history exists CKD PHOS USE SMARTSET 09113 12/07/202411/23, 12/26/2022, 06/21/2021 Adult Wellness Visit 03/06/2025 03/06/2024, 11/02/19 23 O2 ASSESSMENT COMPLETED IN PAST YEAR FOR COPD 04/12/2025 04/12/2024 GFR 07/05/2025 01/02/2025, 10/25, 11/07/2024, Additional history exists Depression Screening 08/06/2025 08/06/2024 CKD HGB USE SMARTSET 90282 01/02/202601/02, 01/02/2025, 11/21/2024, Additional history exists DTap/Tdap [...] this encounter Medical Devices Implanted Type Area Ticket Worker Device Identifier Shelf Expiration Date Model / Serial / Lot Lens Intraoc 22.5 - [id number] - [id number] Implanted:Qty: 1 on 05/22/2018 by Jasbir Maurer MD at OR [facility] Right: Eye BAUSCH 11/22/2022 [id number] / [id number] / [id number] Lens Intraoc 21.0 - [id number] - [id number] Implanted:Qty: 1 on 06/05/2018 by Jasbir Maurer MD at OR [facility] Left: Eye BAUSCH 12/20/2022 [id number] / [id number] / Duraclip 16mm Xlg Repostn - [id number] Implanted:Qty: 1 on 04/12/2024 by Edilberto Lujan MD at OR [facility] NMRKT [id number] 12/08/2024 [id number] / / [id number] Duraclip 16mm Xlg Repostn - [id number] Implanted:Qty: 1 on 04/12/2024 by Edilberto Lujan MD at OR [facility] NMRKT [id number] 12/08/2024 [id number] / / [id number] Duraclip 16mm Xlg Repostn - [id number] Implanted:Qty: 1 on 04/12/2024 by Edilberto Lujan MD at OR [facility] [employer] NACHO [id number] 12/08/2024 [id number] / / [id number] documented as of this encounter Advance Directives [...] on File Name Relationship Healthcare Agent [facility] Ashley [place] Spouse Health Care Repr esentative (appointed verbally by patient or by statute hierarchy) Care Teams Esthetics Instructor Relationship Specialty Start Date End Date Michael Hinton MD [address] [place] [address] PCP - General Family Medicine 08/07/17 documented as of this encounter
--- OUTSIDE RECORDS SUMMARY | 2025-03-05 02:12 | External Medical Summary | Summary of Care ---
Author Name Unknown Organization [facility] Address [address] [place] [address] Phone [phone] Care Team Providers Care Form Setter Steel Pan Forms Name Role Phone Michael Hinton MD Primary Care Provider [phone] Reason for Visit * Reason Onset Date Comments Health Maintenance 02/21/2025 Encounter Details Date Type Department Care Team (Late st Contact Info) Description 02/21/2025 Telephone Family Practice [facility] [address] [facility] [place] [address] Michael Hinton MD [address] [facility] [place] [address] Health Maintenance Allergies Active Allergy Reactions Criticality Noted Date Comments Fabiano Inhibitors Cough 06/09/2017 Carbidopa High 08/30/2024 Other Reaction(s): constipation Carbidopa-Levodopa 03/17/2021 Constipation Levodopa High 08/30/2024 Other Reaction(s): constipation Nsaids Rash 05/17/2018 Contraindicated per pan helper documented as of this encounter (statuses as of 02/21/2025) Medications DIURETIC TITRATION PLAN If no improvement [...] coronary artery of chilkoot heart without angina pectoris,Stage 3b chronic kidney disease (HCC) Take 2 tablets by mouth daily and as directed for weight gain/fluid 10/25/19 25 Active Amantadine HCl 100 MG Oral Capsule (Symmetrel) Take 1 capsule (100 mg total) by mouth daily . PLEASE SCHEDULE FOLLOW UP APPOINTMENT. [phone] Capsule 1 12/11/2024 10:05 AM EST [...] as of this encounter (statuses as of 02/21/2025) Active Problems Problem Noted Date Diagnosed Date [...] have staff contact office to notify of [facility] recommendation, possibly consider dlucho maxzide and [...] Plan (08/08/2024 3:17 PM EDT): Follows with [facility] hematology Routine labs monitored by hem/onc Labs pending today Iron infusion 08/02 Blood transfusion 08/05 Assessment & Plan (07/15/2024 6:05 PM EDT): Follows with [facility] hematology Routine labs monitored by hem/onc Update CBC next week Assessment & Plan (03/13/2024 11:24 AM EDT): Follows with [facility] hematology Routine labs monitored by hem/onc Update CBC tomorrow PRBC transfusions 01/2024, 02/2024 Assessment & Plan (10/17/2023 9:43 AM EST): Followed closely by [facility] hematology. No identified cause of HUNTER. Weekly labs monitored by hem/onc. Most recent hgb 8.7 Assessment & Plan (05/02/2023 1:04 PM EDT): [facility] (09/01/2024): Follows with Dr Shannon Zhang in [place] via telemed for PD Assessment & Plan [...] knees 03/21/2018 Coronary artery disease invo lving chilkoot coronary artery of chilkoot heart without angina pectoris 03/21/2018 Assessment & [...] as of this encounter (statuses as of 02/21/2025) Resolved Problems Problem Noted Date Diagnosed Date [...] (H) 09/09/2019 07:46 AM HEMOGLOBIN A1C - [facility] 6.4 (H) 03/08/2019 07:14 AM ] Major [...] as of this encounter (statuses as of 02/21/2025) Immunizations Name Administration Dates Next Due COVID-19 [...] 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 Not on file Not on file Not on fi le Not on file Not on file Not on file Not on file documented as of this encounter Miscellaneous Notes * Telephone Encounter - Mayuri Simpson LPN - 02/21/2025 9:54 AM EDT Care Gaps Comprehensive Care Outreach Last Office/Telemedicine Visit: 01/31/2025 (in office), 08/19/2024 (telemedicine) Next Office Visit: Visit date not found Hemoglobin AIC Results: Lab Results Component Value Date/Time HEMOGLOBIN A1C - [facility] 8.3 (H) 05/23/2024 10:43 AM HEMOGLOBIN A1C - [facility] 6.1 (H) 04/12/2023 01:00 PM HEMOGLOBIN A1C - [facility] 5.9 (H) 12/26/2022 09:27 AM HEMOGLOBIN A1C - [facility] 6.3 (H) 03/18/2020 07:00 AM HEMOGLOBIN A1C - [facility] 6.4 (H) 09/09/2019 07:46 AM HEMOGLOBIN A1C - [facility] 6.4 (H) 03/08/2019 07:14 AM BP Readings from Last 1 Encounters: 02/11/25 140/68 Reviewed Health Maintenance below: Health Maintenance Topic Date Due Alpha-1 Antitrypsin Never done Diabetic Foot Exam 03/27/2021 Diabetic Eye Exam 11/01/2023 Albumin/Creatinine Ratio 12/27/2023 HbA1c 11/23/2024 CKD PHOS USE SMARTSET 68748 12/07/2024 Adult Wellness Visit 03/06/2025 Ov scheduled Eye Labs ordered Care Gap Outreach Action Taken: Spoke to patient documented in this encounter Plan of Treatment Upcoming Encounters Date Type Department Care Team (Late st Contact Info) Description 03/03/2025 2:15 PM EDT Office Visit Dermatology [facility] [address] [place] [address] [address] [address] Osvaldo Liu MD [address] [place] [address] 03/12/2025 3:30 PM EDT Home Visit Care at Home [address] [place] [address] Betina Jacob PA-C [address] [place] [address] 03/18/2025 11:15 AM EDT Office Visit Urology, [facility] [address] [facility] [place] [phone] Kalpesh Funes MD [address] [place] [address] 03/25/2025 9:30 AM EDT [facility] Visit [facility], [facility] [address] [facility] [place] [address] Peggy De RN 132 [facility] [place] [address] 04/03/2025 7:00 AM EDT Laboratory Lab Mobile Phlebotomy [address] [place] [address] [facility] Mobile Home Draw [address] [place], [place] [address] [address] 05/21/2025 4:00 PM EDT Office Visit Family Practice [facility] [address] [facility] [place] [address] Michael Hinton MD [address] [facility] [place] [address] Scheduled Orders Name Type Priority Associated Diagnoses Orde r Schedule HEMOGLOBIN A1C Lab Routine Diabetes mellitus (HCC) Expected: 03/24/2025, Expires: 02/21/2026 ALBUMIN / CREATININE RATIO, URINE Lab Routine Screening for nephropathy Expected: 03/24/2025, Expires: 02/21/2026 PHOSPHORUS Lab Routine Chronic kidney disease, unspecified CKD stage Expected: 03/24/2025, Expires: 02/21/2026 Health Maintenance Due Date Last Done Comments Alpha-1 Antitrypsin 1962 Diabetic Foot Exam 03/27/2021 03/27/2020, 08/23/2018 Diabetic Eye Exam 11/01/2023 11/01/2022, , 11/01/2022, Additional history exists Albumin/Creatinine Ratio 12/27/2023 023, 03/08/2019, 04/09/2014 HbA1c 11/23/2024 05/23/2024, 03/24, 12/26/2022, Additional history exists CKD PHOS USE SMARTSET 13393 12/07/202411/23, 12/26/2022, 06/21/2021 Adult Wellness Visit 03/06/2025 03/06/2024, 11/02/19 23 O2 ASSESSMENT COMPLETED IN PAST YEAR FOR COPD 04/12/2025 04/12/2024 GFR 07/05/2025 01/02/2025, 10/25, 11/07/2024, Additional history exists Depression Screening 08/06/2025 08/06/2024 CKD HGB USE SMARTSET 39069 01/02/202601/02, 01/02/2025, 11/21/2024, Additional history exists DTap/Tdap [...] Completed 07/06/2024, 07/06/2024, 08/02/2023, Additional history exists HPV (Gardasil) Vaccine Aged [...] encounter Medical Devices Implanted Type Area Rn Ent Device Identifier Shelf Expiration Date Model / Serial / Lot Lens Intraoc 22.5 - [id number] - [id number] Implanted:Qty: 1 on 05/22/2018 by Jasbir Maurer MD at OR [facility] [address] Right: Eye BAUSCH 11/22/2022 [id number] / [id number] / [id number] Lens Intraoc 21.0 - [id number] - [id number] Implanted:Qty: 1 on 06/05/2018 by Jasbir Maurer MD at OR [facility] [address] Left: Eye BAUSCH 12/20/2022 [id number] / [id number] / Duraclip 16mm Xlg Repostn - [id number] Implanted:Qty: 1 on 04/12/2024 by Edilberto Lujan MD at OR [facility] [employer] [id number] 12/08/2024 [id number] / / [id number] Duraclip 16mm Xlg Repostn - [id number] Implanted:Qty: 1 on 04/12/2024 by Edilberto Lujan MD at OR [facility] [employer] [id number] 12/08/2024 [id number] / / [id number] Duraclip 16mm Xlg Repostn - [id number] Implanted:Qty: 1 on 04/12/2024 by Edilberto Lujan MD at OR [facility] [employer] [id number] 12/08/2024 [id number] / / [id number] documented as of this encounter Visit Diagnoses [...] A1c goal of less than 8.0% (HCC) Gastro-esophageal reflux disease without esophagitis Esophageal reflux 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HCC) Primary parkinsonism (HCC) Paralysis agitans Hypertensive 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)- Primary Atrial fibrillation, unspecified type (HCC) Iron deficiency anemia, unspecified iron deficiency anemia type Type 2 diabetes mellitus with stage 3a chronic kidney disease, without long-term current use of insulin ([facility]) Hypertensive 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)- Primary Iron deficiency anemia, unspecified iron deficiency anemia type Wandering atrial pacemaker Other specified cardiac dysrhythmias Primary parkinsonism (HCC) Paralysis agitans 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HCC) Paroxysmal atrial fibrillation (HCC) Atrial fibrillation Paroxysmal atrial fibrillation ([facility])- Primary Atrial fibrillation 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 Type 2 diabetes mellitus with diabetic peripheral angiopathy without gangrene, unspecified whether senior care insulin use ([facility]) Coronary artery disease involving chilkoot coronary artery of chilkoot heart without angina pectoris Hypertensive heart and [...] mitral valve regurgitation Coronary artery disease involving chilkoot coronary artery of chilkoot heart without angina pectoris Paroxysmal atrial fibrillation [...] mitral valve regurgitation Coronary artery disease involving chilkoot coronary artery of chilkoot heart without angina pectoris Stage 3b chronic [...] diarrhea Intestinal infection due to clostridium difficile Diabetes mellitus (HCC)- Primary Type II or unspecified type diabetes mellitus without mention of complication, not stated as uncontrolled Screening for nephropathy Chronic kidney disease, unspecified CKD stage documented in this encounter Advance Directives * [...] Agent Relationshi p Communication Ashley Meek [facility] Health Care Repr esentative (appointed verbally by patient or by statute hierarchy) Care Teams Form Setter Steel Pan Forms Relationship Specialty Start Date End Date Michael Hinton MD [address] [place] [address] PCP - General Family Medicine 08/07/17 documented as of this encounter
--- OUTSIDE RECORDS SUMMARY | 2025-03-05 02:12 | External Medical Summary | Summary of Care ---
Author Name Unknown Organization [facility] Address [address] [place] [address] Phone [phone] Care Team Providers Care Control Officer Manager Name Role Phone Michael Hinton MD Primary Care Provider [phone] Reason for Visit * Reason Onset Date Comments [facility]: Maintenance 03/03/2025 Encounter Details Date Type Department Care Team (Late st Contact Info) Description 03/03/2025 Telephone [facility], [facility] [address] [place] [address] Taryn Salcedo RN [address] [place] [facility] [place] [address] [facility]: Maintenance Allergies Active Allergy Reactions Criticality Noted Date Comments Fabiano Inhibitors Cough 06/09/2017 Carbidopa High 08/30/2024 Other Reaction(s): constipation Carbidopa-Levodopa 03/17/2021 Constipation Levodopa High 08/30/2024 Other Reaction(s): constipation Nsaids Rash 05/17/2018 Contraindicated per rubber goods repairer documented as of this encounter (statuses [...] mitral valve regurgitation,Krista nary artery disease involving viejas coronary artery of viejas heart without angina pectoris,Stage 3b chronic kidney disease (HCC) Take 2 tablets by mouth daily and as directed for weight gain/fluid 10/25/19 25 Active Amantadine HCl 100 MG Oral Capsule (Symmetrel) Take 1 capsule (100 mg total) by mouth daily . PLEASE SCHEDULE FOLLOW UP APPOINTMENT. [phone] 90 Capsule 1 12/11/2024 10:05 AM EST [...] Metoprolol Succinate (ER) o AFBIANO Inhibitor/ARB Therapy: None o Diuretic therapy: Lasix--also [...] have staff contact office to notify of [facility] recommendation, possibly consider dlucho maxzidfe and maximize [...] Plan (08/08/2024 3:17 PM EDT): Follows with [facility] hematology Routine labs monitored by hem/onc Labs pending today Iron infusion 08/02 Blood transfusion 08/05 Assessment & Plan (07/15/2024 6:05 PM EDT): Follows with [facility] hematology Routine labs monitored by hem/onc Update CBC next week Assessment & Plan (03/13/2024 11:24 AM EDT): Follows with [facility] hematology Routine labs monitored by hem/onc Update CBC tomorrow PRBC transfusions 01/2024, 02/2024 Assessment & Plan (10/17/2023 9:43 AM EST): Followed closely by [facility] hematology. No identified cause of HUNTER. Weekly labs monitored by hem/onc. Most recent hgb 8.7 Assessment & Plan (05/02/2023 1:04 PM EDT): Followed closely by [facility] hematology. No identified cause of HUNTER. Weekly labs monitored by hem/onc. Most recent hgb stable 10.5. Assessment & Plan (03/28/2023 1:27 PM EDT): Received blood transfusion 03/24 -will follow-up CBC on 03/30 -continue ferrous sulfate. Dose once daily. Med list updated Assessment & Plan (10/19/2022 1:20 PM EST): Followed by hem/onc. Had severe anemia in Aug with drop to 4.3. [facility] now monitoring counts weekly. Pt very pale [...] (09/01/2024): Follows with Dr Shannon Zhang in [place] via telemed for PD Assessment & Plan [...] knees 03/21/2018 Coronary artery disease invo lving viejas coronary artery of viejas heart without angina pectoris 03/21/2018 Assessment & [...] document from 11/13/[address] [place] [facility] [place] 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 Michael Briggs DO * Telephone Encounter - Taryn Salcedo RN - 03/03/2025 8:10 AM EDT [facility] functional consultant Acute Call Date: 03/03/2025 Time: 8:11 AM Name: Jesus Jose : 1945 Caller: Ashley Relationship to patient: spouse No chief complaint on file. HPI: Jesus Jose is a 79 year old male whose spouse Ashley is calling [facility] to report Parkinson's and [...] hitting head. Son in law is a merchant police and came to assist patient, assessed for [...] not checked BS, has to locate glucometer pai gow manager. She states last BS she checked a [...] was seeing neurologist Dr. Shannon Bowman at [facility] but will be seeing a new provider for next appjuly. Patient has telemed visits as he is unable to travel to [place] for appts. Spouse states she was told by neurology there is not much more they can do with medications and cannot increase. Patient has derm appt today for worsening eczema. She is going to have daughter help assist patientto car and will get w/c to transport into office. Patient has orders for labs ordered by Hem[facility] at [facility] to be drawn by mobile lab the [...] instructions provided to patient. Taryn PRINCE, RN [facility] shaker screen operator Navigator documented in this encounter Plan of Treatment Upcoming Encounters Date Type Department Care Team (Late st Contact Info) Description 03/03/2025 2:15 PM EDT Office Visit Dermatology [facility] [address] [facility] [place] [address] Osvaldo Liu MD [address] [facility] [place] [address] 03/03/2025 3:00 PM EDT Scheduled Telephone [facility] [address] [place] [address] Berny Power PA-C [address] [place] [address] 03/06/2025 11:30 AM EDT Home Visit [facility], [facility] [address] [place] [address] Peggy De, RN [address] [place] [address] 03/07/2025 9:30 AM EDT Scheduled Telephone [facility], [facility] [address] [place] [address] Coordinator, [facility] [address] [place] [address] 03/10/2025 11:00 AM EDT Home Visit [facility], [facility] [address] [place] [address] Berny Power PA-C [address] [place] [address] 03/12/2025 3:30 PM EDT Home Visit [facility] at Home [address], [place] [id number] Betina Jacob PA-C [address] [place] [address] 03/18/2025 11:15 AM EDT Office Visit Urology, [facility] [address] [place] [id number] Kalpesh Funes MD [address] [place] [address] 03/25/2025 9:30 AM EDT Home Visit [facility], [facility] [address] [place] [address] Peggy De RN [address] [place] [address] 04/03/2025 7:00 AM EDT Laboratory Lab Mobile Phlebotomy [place] [address] [place] [address] [place], [facility] Mobile Home Draw [address] [facility] [place] [address] 05/21/2025 4:00 PM EDT Office Visit Family [facility] [address] [place] [address] Michael Hinton MD [address] [place] [address] Health Maintenance Due Date Last Done Comments Alpha-1 Antitrypsin 1963 Diabetic Foot Exam 03/27/2021 03/27/2020, 08/23/2018 Diabetic Eye Exam 11/01/2023 11/01/2022, , 11/01/2022, Additional history exists Albumin/Creatinine Ratio 12/27/2023 023, 03/08/2019, 04/09/2014 HbA1c 11/23/2024 05/23/2024, 03/24, 12/26/2022, Additional history exists CKD PHOS USE SMARTSET 39152 12/07/202411/23, 12/26/2022, 06/21/2021 Adult Wellness Visit 03/06/2025 03/06/2024, 11/02/19 23 O2 ASSESSMENT COMPLETED IN PAST YEAR FOR COPD 04/12/2025 04/12/2024 GFR 07/05/2025 01/02/2025, 10/25, 11/07/2024, Additional history exists Depression Screening 08/06/2025 08/06/2024 CKD HGB USE SMARTSET 80012 01/02/202601/02, 01/02/2025, 11/21/2024, Additional history exists DTap/Tdap [...] this encounter Medical Devices Implanted Type Area Water Resources Engineer Device Identifier Shelf Expiration Date Model / Serial / Lot Lens Intraoc 22.5 - [id number] - [id number] Implanted:Qty: 1 on 05/22/2018 by Jasbir Maurer MD at OR [facility] Right: Eye BAUSCH 11/22/2022 [id number] / [id number] / [id number] Lens Intraoc 21.0 - [id number] - [id number] Implanted:Qty: 1 on 06/05/2018 by Jasbir Maurer MD at OR [facility] Left: Eye BAUSCH 12/20/2022 [id number] / [id number] / Duraclip 16mm Xlg Repostn - [id number] Implanted:Qty: 1 on 04/12/2024 by Edilberto Lujan [facility] [employer] [id number] 12/08/2024 [id number] / / [id number] Duraclip 16mm Xlg Repostn - [id number] Implanted:Qty: 1 on 04/12/2024 by Edilberto Lujan MD at [facility] [employer] [id number] 12/08/2024 [id number] / / [id number] Duraclip 16mm Xlg Repostn - [id number] Implanted:Qty: 1 on 04/12/2024 by Edilberto Lujan MD at [facility] [employer] NACHO [id number] 12/08/2024 [id number] / / [id number] documented as of this encounter Advance Directives [...] patient or by statute hierarchy) Care Teams Control Officer Manager Relationship Specialty Start Date End Date Michael Hinton MD [address] [place] [address] PCP - General Family Medicine 08/07/17 documented as of this encounter
--- OUTSIDE RECORDS SUMMARY | 2025-03-05 02:12 | External Medical Summary | Summary of Care ---
Author Name Unknown Organization [facility] Address [address] [place] [address] Phone [phone] Care Team Providers Care 4 H Youth Development Specialist Name Role Phone Michael Hinton MD Primary Care Provider [phone] Reason for Visit * Reason Onset Date Comments Appointment 02/18/2025 Encounter Details Date Type Department Care Team (Late st Contact Info) Description 02/18/2025 Telephone Dermatology [facility] [address] [place], [place] [phone] Services, Scheduling [address] [place] [address] Appointment Allergies Active Allergy Reactions Criticality Noted Date Comments Fabiano Inhibitors Cough 06/09/2017 Carbidopa High 08/30/2024 Other Reaction(s): constipation Carbidopa-Levodopa 03/17/2021 Constipation Levodopa High 08/30/2024 Other Reaction(s): constipation Nsaids Rash 05/17/2018 Contraindicated per bulk driver documented as of this encounter (statuses as of 02/21/2025) Medications DIURETIC TITRATION PLAN If no improvement on day 3, contact heart failure managing provider. 1 Each 3 Active Betamethasone Dipropionate 0.05 % External OintmentIndicati ons:Inflamed seborrheic keratosis APPLY TO SKIN LESIONS AND SCALP LESIONS UP TO TWO TIMES A DAY FOR NO LONGER THAN 2 WEEKS AT A TIME FOR ITCH. (THEN TAKE A 2 WEEK BREAK) 45 g 2 11/07/2023 10:13 AM EST 4 Active Allopurinol 300 MG Oral Tablet (Zyloprim) Take 1 Tablet by mouth in the morning. 90 Tablet 3 02/03/2025 11:22 AM EDT 4 Active Saccharomyces boulardii 250 MG Oral Capsule (Florastor)Indic ations:Clostridi um difficile diarrhea Take 1 Capsule by mouth in the morning and 1 Capsule before bedtime. 90 Capsule 3 4 Active Additional Information Patient taking differently:250 mg OralDaily(Non-Specified), Reported on 02/18/2025 Metoprolol Succinate ER 50 MG Oral Tablet Extended Release 24 Hour (Toprol XL) Take 1 Tablet by mouth in the morning. 90 Tablet 3 02/18/2025 3:26 PM EDT 4 Active Spironolactone 25 MG Oral Tablet (Aldactone) Take one-half Tablet by mouth in the morning. 45 Tablet 3 12/11/2024 4:41 PM EST 4 Active Dutasteride 0.5 MG Oral Capsule (Avodart) Take 1 Capsule by mouth in the morning. 90 Capsule 3 01/22/2025 5:51 PM EDT 4 Active Atorvastatin Calcium 40 MG Oral Tablet (Lipitor)Indicat ions:Dyslipidemi a Take 1 Tablet by mouth in the morning. 90 Tablet 3 12/26/2024 1:44 PM EST 4 Active Empagliflozin 10 MG Oral Tablet (Jardiance) Take 1 Tablet by mouth in the morning. Do not start before October 28, 2024. 90 Tablet 3 10/09/2024 11:54 AM EST 5 Active buPROPion HCl ER (XL) 150 MG Oral Tablet Extended Release 24 Hour (Wellbutrin XL)Indications:G AD (generalized anxiety disorder) Take 1 Tablet by mouth in the morning. 90 Tablet 3 10/10/2024 4:25 PM EST 4 Active Torsemide 20 MG Oral Tablet (Demadex)Indicat ions:Paroxysmal atrial fibrillation (HCC),Nonrheumat ic mitral valve regurgitation,Co ronary artery disease involving [place] coronary artery of [place] heart without angina pectoris,Stage 3b chronic kidney disease (HCC) Take 2 tablets by mouth daily and as directed for weight gain/fluid 5 Active Amantadine HCl 100 MG Oral Capsule (Symmetrel) Take 1 capsule (100 mg total) by mouth daily . PLEASE SCHEDULE FOLLOW UP APPOINTMENT. [phone] 90 Capsule 1 12/11/2024 10:05 AM EST 5 Active OneTouch Deljameel Lancets 33GIndications:T ype 2 diabetes mellitus with hemoglobin A1c goal of less than 8.0% (HCC) Use up to 4 times a day 400 Each 3 01/14/2025 10:58 AM EDT 5 Active OneTouch Verio In Vitro Strip (Glucose Blood)Indication s:Type 2 diabetes mellitus with hemoglobin A1c goal of less than 8.0% (HCC) Use up to 4 times a day E11.9 400 Strip 3 01/14/2025 2:20 PM EDT 5 Active D-Care Glucometer w/Device KitIndications:T ype 2 diabetes mellitus with hemoglobin A1c goal of less than 8.0% (HCC) Use as directed. 1 Kit 01/14/2025 8:27 AM EDT 5 Active Escitalopram Oxalate 20 MG Oral Tablet (Lexapro) take one tablet by mouth daily in the morning 90 Tablet 3 01/24/2025 4:55 PM EDT Active Magic Swizzle (Lidocaine-Benad ryl-Maalox) oral solution Swish and spit 15 mL in the morning and 15 mL before bedtime. 90 mL 5 5 Active documented as of this encounter (statuses [...] Will place ref to assist with dressings Chronic kidney [...] have staff contact office to notify of [facility] recommendation, possibly consider d.c maxzide and [...] Plan (08/08/2024 3:17 PM EDT): Follows with [facility] hematology Routine labs monitored by hem/onc Labs pending today Iron infusion 08/02 Blood transfusion 08/05 Assessment & Plan (07/15/2024 6:05 PM EDT): Follows with [facility] hematology Routine labs monitored by hem/onc Update CBC next week Assessment & Plan (03/13/2024 11:24 AM EDT): Follows with [facility] hematology Routine labs monitored by hem/onc Update CBC tomorrow PRBC transfusions 01/2024, 02/2024 Assessment & Plan (10/17/2023 9:43 AM EST): Followed closely by [facility] hematology. No identified cause of HUNTER. Weekly labs monitored by hem/onc. Most recent hgb 8.7 Assessment & Plan (05/02/2023 1:04 PM EDT): Followed closely by [facility] hematology. [...] (09/01/2024): Follows with Dr Shannon Zhang in [place] via telemed for PD Assessment & Plan [...] knees 03/21/2018 Coronary artery disease invo lving [place] coronary artery of [place] heart without angina pectoris 03/21/2018 Assessment & [...] Baseline -Continue amantadine Followed by Dr. Shannon Baser via telemedicine every 6 months Assessment & [...] scanned document from 11/13/[address] [place]. 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 Liu for March 03. * Telephone Encounter - Maritza De OSA - 02/18/2025 10:01 AM EDT Patient's Ashley is calling, said patient was seen at dermatology office in [place] and she will NOT be going back there. Said has dementia and parkinsons and that was tough on him andwas not a good experience. Ashley said that Maranda requested a 2-3 week follow up she is looking to schedule in [facility]. Please assist in scheduling and contact patient's at [phone]. Thank you LARRY Smallwood documented in this encounter Plan of Treatment Upcoming Encounters Date Type Department Care Team (Late st Contact Info) Description 03/03/2025 2:15 PM EDT Office Visit Dermatology [facility] [address] [facility] [address] Osvaldo Liu MD [address] [facility] [place] [address] 03/12/2025 3:30 PM EDT Home Visit Care at Home [address] [place] [address] Betina Jacob PA-C [address] [place] [address] 03/18/2025 11:15 AM EDT Office Visit Urology, [facility] [address] [place] [phone] Kalpesh Funes MD [address] [place] [address] 03/25/2025 9:30 AM EDT Home Visit [facility], [facility] [address] [place] [address] Peggy De, RN [address] [place] [address] 04/03/2025 7:00 AM EDT Laboratory Lab Mobile Phlebotomy [address] [place] [address] [facility] Mobile Home Draw [address] [place] [address] [place] [address] 05/21/2025 4:00 PM EDT Office Visit Family [facility] [address] [place] [address] Michael Hinton MD [address] [place] [address] Health Maintenance Due Date Last Done Comments Alpha-1 Antitrypsin 1962 Diabetic Foot Exam 03/27/2021 03/27/2020, 08/23/2018 Diabetic Eye Exam 11/01/2023 11/01/2022, , 11/01/2022, Additional history exists Albumin/Creatinine Ratio 12/27/2023 023, 03/08/2019, 04/09/2014 HbA1c 11/23/2024 05/23/2024, 03/24, 12/26/2022, Additional history exists CKD PHOS USE SMARTSET 92404 12/07/202411/23, 12/26/2022, 06/21/2021 Adult Wellness Visit 03/06/2025 03/06/2024, 11/02/19 23 O2 ASSESSMENT COMPLETED IN PAST YEAR FOR COPD 04/12/2025 04/12/2024 GFR 07/05/2025 01/02/2025, 10/25, 11/07/2024, Additional history exists Depression Screening 08/06/2025 08/06/2024 CKD HGB USE SMARTSET 89843 01/02/202601/02, 01/02/2025, 11/21/2024, Additional history exists DTap/Tdap [...] this encounter Medical Devices Implanted Type Area Career Center Advisor Device Identifier Shelf Expiration Date Model / Serial / Lot Lens Intraoc 22.5 - [id number] - [id number] Implanted:Qty: 1 on 05/22/2018 by Jasbir Maurer MD at OR [facility] Right: Eye BAUSCH 11/22/2022 [id number] / [id number] / [id number] Lens Intraoc 21.0 - [id number] - [id number] Implanted:Qty: 1 on 06/05/2018 by Jasbir Maurer MD at OR [facility] Left: Eye BAUSCH 12/20/2022 [id number] / [id number] / Duraclip 16mm Xlg Repostn - [id number] Implanted:Qty: 1 on 04/12/2024 by Edilberto Lujan MD at OR [facility] [employer] [facility] [id number] 12/08/2024 [id number] / / [id number] Duraclip 16mm Xlg Repostn - [id number] Implanted:Qty: 1 on 04/12/2024 by Edilberto Lujan MD at OR [facility] [employer] NACHO [id number] 12/08/2024 [id number] / / [id number] Duraclip 16mm Xlg Repostn - [id number] Implanted:Qty: 1 on 04/12/2024 by Edilberto Lujan MD at OR [facility] [employer] [id number] 12/08/2024 [id number] / / [id number] documented as of this encounter Advance Directives [...] patient or by statute hierarchy) Care Teams 4 H Youth Development Specialist Relationship Specialty Start Date End Date Michael Hinton MD [address] [place] [address] PCP - General Family Medicine 08/07/17 documented as of this encounter
--- OUTSIDE RECORDS SUMMARY | 2025-03-05 02:13 | External Medical Summary | Summary of Care ---
Author Name Unknown Organization [facility] Address [address] [place] [address] Phone [phone] Care Team Providers Care Pole Peeling Machine Operator Name Role Phone Michael Hinton MD Primary Care Provider [phone] Encounter Details Date Type Department Care Team (Late st Contact Info) Description 02/18/2025 4:00 PM EDT Medication Management Ej Foley [facility] [address] [place] [address] Pharmacist, Ej Foley [facility] [address] [place] [address] Referred for management of medication therapy* Allergies Active Allergy Reactions Criticality Noted Date Comments Fabiano Inhibitors Cough 06/09/2017 Carbidopa High 08/30/2024 Other Reaction(s): constipation Carbidopa-Levodopa 03/17/2021 Constipation Levodopa High 08/30/2024 Other Reaction(s): constipation Nsaids Rash 05/17/2018 Contraindicated per underwear finisher documented as of this encounter (statuses as of 02/20/2025) Medications DIURETIC TITRATION PLAN If no improvement [...] 45 g 2 4 10:13 AM EST 11/06/19 24 Active Allopurinol 300 MG Oral Tablet (Zyloprim) Take 1 Tablet by mouth in the morning. 90 Tablet 3 5 11:22 AM EDT 05/13/20 24 Active Saccharomyces [...] 90 Tablet 3 5 3:26 PM EDT 08/26/20 24 Active Spironolactone 25 MG Oral Tablet (Aldactone) Take one-half Tablet by mouth in the morning. 45 Tablet 3 5 4:41 PM EST 09/17/20 24 Active Dutasteride 0.5 MG Oral Capsule (Avodart) Take 1 Capsule by mouth in the morning. 90 Capsule 3 5 5:51 PM EDT 09/17/20 24 Active Atorvastatin Calcium 40 MG Oral Tablet (Lipitor)Indicatio ns:Dyslipidemia Take 1 Tablet by mouth in the morning. 90 Tablet 3 5 1:44 PM EST 09/25/20 24 Active Empagliflozin 10 MG Oral Tablet (Jardiance) Take 1 Tablet by mouth in the morning. Do not start before October 28, 2024. 90 Tablet 3 4 11:54 AM EST 10/28/19 25 Active buPROPion HCl ER (XL) 150 MG Oral Tablet Extended Release 24 Hour (Wellbutrin XL)Indications:FABIANO (generalized anxiety disorder) Take 1 Tablet by mouth in the morning. 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 PLEASE SCHEDULE FOLLOW UP APPOINTMENT. [phone] 90 Capsule 1 5 10:05 AM EST 12/09/19 25 Active OneTouch Delica Lancets 33GIndications:Typ e 2 diabetes mellitus with hemoglobin A1c goal of less than 8.0% (HCC) Use up to 4 times a day 400 Each 3 5 10:58 AM EDT 01/11/20 25 Active OneTouch Verio In Vitro Strip (Glucose Blood)Indications: Type 2 diabetes mellitus with hemoglobin A1c goal of less than 8.0% (HCC) Use up to 4 times a day E11.9 400 Strip 3 5 2:20 PM EDT 01/11/20 25 Active D-Care Glucometer w/Device KitIndications:Typ e 2 diabetes mellitus with hemoglobin A1c goal of less than 8.0% (HCC) Use as directed. 1 Kit 5 8:27 AM EDT 01/11/20 25 Active Escitalopram Oxalate 20 MG Oral Tablet (Lexapro) take one tablet by mouth daily in the morning 90 Tablet 3 5 4:55 PM EDT 01/24/20 25 Active Magic [...] to affected area daily as directed Active Triamcinolone Acetonide 0.1 % External Ointment (Aristocort) Apply to legs daily with dressing changes 454 g 1 08/14/20 24 025 Discontin ued(Medic ation List Clean Up) Dificid 200 MG Oral Tablet (Fidaxomicin) Take 1 Tablet by mouth every other day. 35 Tablet 08/29/20 24 025 Discontin ued(Medic ation List Clean Up) Colestipol HCl 1 GM Oral Tablet (Colestid) take 2 tablets by mouth with supper and 2 tablets by mouth at bedtime. Adjust as needed. 360 Tablet 3 5 12:24 PM EST 09/11/20 24 025 Discontin ued(Medic ation List Clean Up) Donepezil HCl 5 MG Oral Tablet (Aricept) Take 1 tablet (5 mg total) by mouth every morning . 90 Tablet 1 5 7:20 AM EDT 10/21/20 24 025 Discontin ued(Medic ation List Clean Up) Lidocaine 5 % External Patch (Lidoderm) Place 1 Patch over 12 hours topically on the skin daily. 30 Patch 11/04/19 25 025 Discontin ued(Medic ation List Clean Up) Chlorhexidine Gluconate 0.12 % Mouth/Throat Solution (Peridex) Swish and spit 15 mL in the morning and 15 mL before bedtime. 473 mL 5 12/17/19 25 025 Discontin ued(Medic ation List Clean Up) Nystatin 401871 UNIT/GM External Cream Apply topically to affected area 2 times a day. To affacted area for two weeks. 30 g 2 12/17/19 25 025 Discontin ued(Medic ation List Clean Up) Magic Swizzle (Lidocaine-Benadry l-Maalox) oral solution Swish and spit 15 mL 2 times a day as needed (oral sores or pain). 300 mL 1 01/11/20 25 025 Discontin ued(Medic ation List Clean Up) Mupirocin 2 % External Ointment (Bactroban)Indicat ions:Wound, open, arm, forearm, right, initial encounter Apply topically to affected area 2 times a day for 14 days. To affected area for up to 14 days. 22 g 02/01/20 25 025 Discontin ued(Medic ation List Clean Up) documented as of this encounter (statuses as of 02/20/2025) Active Problems Problem Noted Date Diagnosed Date [...] have staff contact office to notify of [facility] recommendation, possibly consider d.c maxzide and [...] Plan (08/08/2024 3:17 PM EDT): Follows with [facility] hematology Routine labs monitored by hem/onc Labs pending today Iron infusion 08/02 Blood transfusion 08/05 Assessment & Plan (07/15/2024 6:05 PM EDT): Follows with [facility] hematology Routine labs monitored by hem/onc Update CBC next week Assessment & Plan (03/13/2024 11:24 AM EDT): Follows with [facility] hematology Routine labs monitored by hem/onc Update CBC tomorrow PRBC transfusions 01/2024, 02/2024 Assessment & Plan (10/17/2023 9:43 AM EST): Followed closely by [facility] hematology. No identified cause of HUNTER. Weekly labs monitored by hem/onc. Most recent hgb 8.7 Assessment & Plan (05/02/2023 1:04 PM EDT): Followed closely by [facility] [...] anemia in Aug with drop to 4.3. [facility] now monitoring counts weekly. Pt very [...] (09/01/2024): [place]s [place] Dr Shannon Zhang [place] via telemed for PD Assessment & Plan [...] knees 03/21/2018 Coronary artery disease invo lving paimiut coronary artery of paimiut heart without angina pectoris 03/21/2018 Assessment & [...] as of this encounter (statuses as of 02/20/2025) Resolved Problems Problem Noted Date Diagnosed Date [...] as of this encounter (statuses as of 02/20/2025) Immunizations Name Administration Dates Next Due COVID-19 mRNA, LNP-s, No Pre serve, 2-Dose Series (BeMyGuest) 11/03/2021,12/19/2020,11/28/2020 Covid-19 Ad26, Single Dose (Soy/J&J) 12/19/2020,11/28/2020 [...] 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 Objective: Review of patient's allergies indicates: Allergen Reactions Carbidopa Other Reaction(s): constipation Levodopa Other Reaction(s): constipation Fabiano Inhibitors Cough Carbidopa-Levodopa Constipation Nsaids Rash Contraindicated per underwear finisher Current Outpatient Medications - WARNING: List may be incomplete due to filtering Medication Sig Dispense Refill CeraVe Itch Relief 1 % External Cream (Pramoxine HCl) Apply topically to affected area. Apply to affected area daily as directed Donepezil HCl 10 MG Oral Tablet Disintegrating (Aricept Odt) Place 1 Tablet on tongue in the morning. Take with largest meal of the day.. Magic Swizzle (Wjcaqtecm-Cwmyxbwk-Leosag) oral solution Swish and spit 15 mL in the morning and 15 mL before bedtime. 90 mL 5 Escitalopram Oxalate 20 MG Oral Tablet (Lexapro) take one tablet by mouth daily in the morning 90 Tablet 3 Amantadine HCl 100 MG Oral Capsule (Symmetrel) Take 1 capsule (100 mg total) by mouth daily . PLEASE SCHEDULE FOLLOW UP APPOINTMENT. [phone] 90 Capsule 1 Torsemide 20 MG Oral Tablet (Demadex) Take 2 tablets by mouth daily and as directed for weight gain/fluid buPROPion HCl ER (XL) 150 MG Oral Tablet Extended Release 24 Hour (Wellbutrin XL) Take 1 Tablet by mouth in the morning. 90 Tablet 3 Empagliflozin 10 MG Oral Tablet (Jardiance) Take 1 Tablet by mouth in the morning. Do not start before October 28, 2024. 90 Tablet 3 Atorvastatin Calcium 40 MG Oral Tablet (Lipitor) Take 1 Tablet by mouth in the morning. 90 Tablet 3 Dutasteride 0.5 MG Oral Capsule (Avodart) Take 1 Capsule by mouth in the morning. 90 Capsule 3 Spironolactone 25 MG Oral Tablet (Aldactone) Take one-half Tablet by mouth in the morning. 45 Tablet 3 Metoprolol Succinate ER 50 MG Oral Tablet Extended Release 24 Hour (Toprol XL) Take 1 Tablet by mouth in the morning. 90 Tablet 3 Saccharomyces boulardii 250 MG Oral Capsule (Florastor) Take 1 Capsule by mouth in the morning and 1 Capsule before bedtime. (Patient taking differently: Take 1 Capsule by mouth daily.) 90 Capsule 3 Allopurinol 300 MG Oral Tablet (Zyloprim) Take 1 Tablet by mouth in the morning. 90 Tablet 3 D-Care Glucometer w/Device Kit Use as directed. 1 Kit 0 OneTouch Delica Lancets 33G Use up to 4 times a day 400 Each 3 OneTouch Verio In Vitro Strip (Glucose Blood) Use up to 4 times a day E11.9 400 Strip 3 Betamethasone Dipropionate 0.05 % External Ointment APPLY TO SKIN LESIONS AND SCALP LESIONS UP TO TWO TIMES A DAY FOR NO LONGER THAN 2 WEEKS AT A TIME FOR ITCH. (THEN TAKE A 2 WEEK BREAK) 45 g 2 DIURETIC TITRATION PLAN If no improvement on day 3, contact heart failure managing provider. 1 Each0 Immunization History Administered Date(s) Administered COVID-19 mRNA, LNP-s, No Preserve, 2-Dose Series (BeMyGuest) 11/28/2020, 12/19/2020, 11/03/2021 Covid-19 Ad26, Single Dose (Soy/J&J) 11/28/2020, 12/19/2020 DTaP - Dipth/Tet/Acell Pertussis (Infanrix), Peds 10/24/2019 Pneumococcal Conjugate Vacc, 13 Valent (Prevnar) 04/27/2016 Pneumococcal Polysaccharide PPV23 (Pneumovax) 08/27/2009 Season Influenza, Quad, PF, Adjuvanted, 65+ Yrs, IM (FLUAD) 07/07/2020 Seasonal Influenza Vac., MDV, IM, 0.5 mL (Fluzone) 09/07/2005, 08/28/2006, 08/28/2007, 09/03/2008, 07/02/2009, 07/27/2010, 07/15/2011, 07/13/2012, 07/06/2013, 07/14/2014, 07/03/2015, 08/23/2016 Seasonal Influenza Virus Vaccine, Unspecified Formulation 09/07/2005, 08/28/2006, 08/28/2007, 09/03/2008, 07/02/2009, 07/27/2010, 07/15/2011, 07/13/2012, 07/06/2013, 07/14/2014, 07/03/2015, 07/25/2016, 08/23/2016, 07/26/2017, 07/04/2018, 07/31/2019, 07/07/2020 Seasonal Influenza, High Dose, Trivalent, PF, IM (Fluzone HD) 07/06/2024 Seasonal Influenza, PF, 6 M & above, IM , (FluLaval or Fluzone) 07/26/2017, 07/04/2018, 07/31/2019 Seasonal Influenza, QUAD, with Preserv, 6 mons & Above, 0.5 mL, IM 07/07/2020, 07/23/2021 Seasonal Influenza, Quadrivalent Hd (Fluzone Hd) 07/13/2022, 08/02/2023 Seasonal Influenza, Quadrivalent, No Preserve, IM 07/25/2016 TD - Tetanus/Diptheria (ADULT) 05/27/1997 TD, Preservative Free 05/27/1997 TDAP (age 10 and older)(Boostrix) 10/24/2019 TDAP, Age 7 and older, IM (Adacel) 11/03/2008 Varicella Zoster Vaccine Adult (Zostavax) 09/05/2016, 10/24/2019 Zoster Vaccine Recombinant (Shingrix) 07/31/2019, 10/24/2019 TMR Interventions Incomplete Encounter MTPs No medication therapy recommendations to display Complete Encounter MTPs No medication therapy recommendations to display Assessment & Plan Indication, effectiveness, safety and convenience of his medications were reviewed today. The patient's medical conditions were assessed, evaluated, and deemed meeting goals of drug therapy, with thefollowing exceptions. Additional Notes: CMR completed with patient and , Ashley. Brown Colon Who was the recipient of the CMR service: beneficiary Language Template for the Patient Takeaway: Bots[place] I attest that I have reviewed and updated the patient's conditions, allergies, and medications to the best of my ability. Patient provided medication list gathered by: Emily Brasher CPhT Amy Camara RPh 02/20/2025, 9:02 AM documented in this encounter Miscellaneous Notes * [place] To-Do-List - Amy Camara RPh - 02/20/2025 9:01 AM EDT Images from the original note were not included. What we talked about: What I should do: The importance of taking your medication as prescribed Your medicine works best when taken as prescribed. It can be hard to remember to take daily medications. Consider making it a part of your daily routine. Pair taking your medication with something you do every day, like brushing your teeth or eating a meal. Consider setting daily alarms to help remind yourself when it is time to take your medicine. Using a pill box can also help you organize your medicines. Pill boxes allow you to fill each day slot with your daily medicine and help you track when your next dose is due. What we talked about: What I should do: Importance of Good Blood Sugars Diabetes is a progressive disease that affects the pancreas and its' ability to produce insulin. It can also affect how well your body uses what insulin it does make. Insulin is how your body controls the amount of sugar that is in your blood. When your body isn't utilizing its' insulin well or if it is not making enough of it, your blood sugar will accumulate in your body rather than getting rid of it. If sugars remain high and left untreated, risks of kidney, heart, eyesight, circulation and prolonged healing issues can occur. The quicker and more stable you can keep your blood sugar levels, the lower the stress that is on your body and the lower the risk of diabetes-related complications. * [facility] Personal Medication List - Amy Camara RP - 02/20/2025 8:53 AM EDT Medication How I take it Why I use it Prescriber Allopurinol 300 MG Oral Tablet (Zyloprim) Take 1 Tablet by mouth in the morning. Gout Michael Ramos MD Amantadine HCl 100 MG Oral Capsule (Symmetrel) Take 1 Capsule by mouth once a day. Uncontrolled Movements HALLIE Molina Atorvastatin Calcium 40 MG Oral Tablet (Lipitor) Take 1 Tablet by mouth in the morning. High Cholesterol Berny Power PA-C buPROPion HCl ER (XL) 150 MG Oral Tablet Extended Release 24 Hour (Wellbutrin XL) Take 1 Tablet by mouth in the morning. Mood Disorder Berny Power PA-C CeraVe Itch Relief 1 % External Cream (Pramoxine HCl) Apply topically to affected area daily as directed. Skin Health Self Donepezil HCl 10 MG Oral Tablet Disintegrating (Aricept Odt) Place and dissolve 1 Tablet on tongue in the morning with largest meal of the day. Memory Disorder HALLIE Molina Dutasteride 0.5 MG Oral Capsule (Avodart) Take 1 Capsule by mouth in the morning. Enlarged ProstateHoward Parrish Funes MD Empagliflozin 10 MG Oral Tablet (Jardiance) Take 1 Tablet by mouth in the morning. Diabetes Dominick Silva DO Escitalopram Oxalate 20 MG Oral Tablet (Lexapro) Take 1 Tablet by mouth every day in the morning. Mood Disorder Michael Hinton MD Magic Swizzle (Hwgtsqcay-Dwpneagg-Nmjygt) oral solution Swish and spit 15 mL by mouth 2 times a day. Oral Health Eduardo Groves MD Metoprolol Succinate ER 50 MG Oral Tablet Extended Release 24 Hour (Toprol XL) Take 1 Tablet by mouth in the morning. Heart Rate Control Dominick Benz DO Saccharomyces boulardii 250 MG Oral Capsule (Florastor) Take 1 Capsule by mouth once a day. Gut Health Ramy Mercado DO Spironolactone 25 MG Oral Tablet (Aldactone) Take one-half Tablet by mouth in the morning. High Blood Pressure, Fluid Retention Berny Power PA-C Torsemide 20 MG Oral Tablet (Demadex) Take 2 tablets by mouth daily and as directed for weight gain/fluid. Fluid Retention Dominick Benz DO documented in this encounter Plan of Treatment Upcoming Encounters Date Type Department Care Team ([facility] Leonela Info) Description 03/12/2025 3:30 PM EDT Home Visit Care at Home [address] [address] [id number] Betina Jacob PA-C [address] [place] [address] [id number] 03/18/2025 11:15 AM EDT Office Visit Urology, [facility] [address] [place] [phone] Kalpesh Funes MD [address] [place] [address] 03/25/2025 9:30 AM EDT [facility] [address] [facility] [place] [id number] Peggy De RN [address] [facility] [place] [address] 04/08/2025 7:05 AM EDT Laboratory Lab Mobile Phlebotomy [address] [place] [address] [facility] Mobile Home Draw [facility] [place] [address] Health Maintenance Due Date Last Done Comments Alpha-1 Antitrypsin 1963 Diabetic Foot Exam 03/27/2021 03/27/2020, 08/23/2018 Diabetic Eye Exam 11/01/2023 11/01/2022, , 11/01/2022, Additional history exists Albumin/Creatinine Ratio 12/27/2023 023, 03/08/2019, 04/09/2014 HbA1c 11/23/2024 05/23/2024, 03/24, 12/26/2022, Additional history exists CKD PHOS USE SMARTSET 75286 12/07/202411/23, 12/26/2022, 06/21/2021 Adult Wellness Visit 03/06/2025 03/06/2024, 11/02/19 23 O2 ASSESSMENT COMPLETED IN PAST YEAR FOR COPD 04/12/2025 04/12/2024 GFR 07/05/2025 01/02/2025, 10/25, 11/07/2024, Additional history exists Depression Screening 08/06/2025 08/06/2024 CKD HGB USE SMARTSET 05414 01/02/202601/02, 01/02/2025, 11/21/2024, Additional history exists DTap/Tdap [...] this encounter Medical Devices Implanted Type Area Calker Device Identifier Shelf Expiration Date Model / Serial / Lot Lens Intraoc 22.5 - [id number] - [id number] Implanted:Qty: 1 on 05/22/2018 by Jasbir Maurer MD at [facility] Right: Eye BAUSCH 11/22/2022 [id number] / [id number] / [id number] Lens Intraoc 21.0 - [id number] - [id number] Implanted:Qty: 1 on 06/05/2018 by Jasbir Maurer MD at [facility] Left: Eye BAUSCH 12/20/2022 [id number] / [id number] / Duraclip 16mm Xlg Repostn - [id number] Implanted:Qty: 1 on 04/12/2024 by Edilberto Lujan MD at [facility] [employer]HCO [id number] 12/08/2024 [id number] / / [id number] Duraclip 16mm Xlg Repostn - [id number] Implanted:Qty: 1 on 04/12/2024 by Edilberto Lujan MD at [facility] [employer] NACHO [id number] 12/08/2024 [id number] / / [id number] Duraclip 16mm Xlg Repostn - [id number] Implanted:Qty: 1 on 04/12/2024 by Edilberto Lujan MD at [facility] [employer] NACHO [id number] 12/08/2024 [id number] / / [id number] documented as of this encounter Visit Diagnoses [...] without long-term current use of insulin (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)- Primary Iron deficiency anemia, unspecified iron deficiency anemia type Wandering atrial pacemaker Other specified cardiac dysrhythmias Primary parkinsonism (HCC) Paralysis agitans 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HCC) Paroxysmal atrial fibrillation (HCC) Atrial fibrillation Paroxysmal atrial fibrillation (HCC)- Primary Atrial fibrillation Immunodeficiency (HCC) Unspecified immunity deficiency Type 2 diabetes mellitus with diabetic peripheral angiopathy without gangrene, unspecified whether intermediate insulin use (HCC) 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 Hypertensive heart and [...] mitral valve regurgitation 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 Paroxysmal atrial fibrillation [...] mitral valve regurgitation 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
--- OUTSIDE RECORDS SUMMARY | 2025-03-05 02:13 | External Medical Summary | Summary of Care ---
Author Name Unknown Organization [facility] Address [address] [place] [address] Phone [phone] Care Team Providers Care Workforce Consultant Name Role Phone Michael Hinton MD Primary Care Provider [phone] Encounter Details Date Type Department Care Team (Latest Contact Info) Description 02/17/2025 4:30 PM EDT - 02/17/2025 11:59 PM EDT Hospital Encounter Radiology Film File [address] [place] [address] Arrived Discharge Disposition: Home - Self Care Allergies Active Allergy Reactions Criticality Noted Date Comments Fabiano Inhibitors Cough 06/09/2017 Carbidopa High 08/30/2024 Other Reaction(s): constipation Carbidopa-Levodopa 03/17/2021 Constipation Levodopa High 08/30/2024 Other Reaction(s): constipation Nsaids Rash 05/17/2018 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 90 Capsule 3 08/19/20 24 Active Additional Information Patient not taking.Reported on 01/31/2025 Metoprolol Succinate ER 50 MG Oral Tablet Extended Release 24 Hour (Toprol XL) Take 1 Tablet by mouth in the morning. 90 Tablet 3 02/18/2025 3:26 PM EDT 08/26/20 24 Active Dificid 200 MG Oral Tablet (Fidaxomicin) Take 1 Tablet by mouth every other day. 35 Tablet 08/29/20 24 Active Colestipol HCl 1 GM Oral Tablet (Colestid) take 2 tablets by mouth with supper and 2 tablets by mouth at bedtime. Adjust as needed. 360 Tablet 3 12/04/2024 12:24 PM EST 09/11/20 24 Active Additional Information Patient not taking.Reported on 01/31/2025 Spironolactone 25 MG Oral Tablet (Aldactone) Take [...] Tablet 3 10/10/2024 4:25 PM EST 10/10/20 Active Donepezil HCl 5 MG Oral Tablet (Aricept) Take 1 tablet (5 mg total) by mouth every morning . 90 Tablet 1 01/20/2025 7:20 AM EDT 10/21/20 Active Torsemide 20 MG Oral Tablet (Demadex)Indicat ions:Paroxysmal atrial fibrillation (HCC),Nonrheumat ic mitral valve regurgitation,Co ronary artery disease involving [place] coronary artery of [place] heart without angina pectoris,Stage 3b chronic kidney disease (HCC) Take 2 tablets by mouth daily and as directed for weight gain/fluid 10/25/19 Active Lidocaine 5 % External Patch (Lidoderm) Place 1 Patch over 12 hours topically on the skin daily. 30 Patch 11/04/19 Active Additional Information Patient not taking.Reported on 01/31/2025 Amantadine HCl 100 MG Oral Capsule (Symmetrel) Take 1 capsule (100 mg total) by mouth daily . PLEASE SCHEDULE FOLLOW UP APPOINTMENT. [phone] 90 Capsule 1 12/11/2024 10:05 AM EST 12/09/19 Active Chlorhexidine Gluconate 0.12 % Mouth/Throat Solution (Peridex) Swish and spit 15 mL in the morning and 15 mL before bedtime. 473 mL 5 12/17/19 Active Additional Information Patient not taking.Reported on 01/31/2025 Nystatin 048091 UNIT/GM External Cream Apply topically to affected area 2 times a day. To affacted area for two weeks. 30 g 2 12/17/19 Active OneTouch Delica Lancets 33GIndications:T ype 2 diabetes mellitus with hemoglobin A1c goal of less than 8.0% ([facility]) Use up to 4 times a day 400 Each 3 01/14/2025 10:58 AM EDT 01/11/20 Active OneTouch Verio In Vitro Strip (Glucose Blood)Indication s:Type 2 diabetes mellitus with hemoglobin A1c goal of less than 8.0% ([facility]) Use up to 4 times a day E11.9 400 Strip 3 01/14/2025 2:20 PM EDT 01/11/20 25 Active D-Care Glucometer w/Device KitIndications:T ype 2 diabetes mellitus with hemoglobin A1c goal of less than 8.0% ([facility]) Use as directed. 1 Kit 01/14/2025 8:27 AM EDT 01/11/20 25 Active Escitalopram Oxalate 20 MG Oral Tablet (Lexapro) take one tablet by mouth daily in the morning 90 Tablet 3 01/24/2025 4:55 PM EDT 01/24/20 25 Active Magic Swizzle (Lidocaine-Benad ryl-Maalox) oral solution Swish and spit 15 mL in the morning and 15 mL before bedtime. 90 mL 5 02/12/20 25 Active Magic Swizzle (Lidocaine-Benad ryl-Maalox) oral solution Swish and spit 15 mL 2 times a day as needed (oral sores or pain). 300 mL 1 01/11/20 25 025 Discontin ued(Medic ation List Clean Up) documented as of this encounter (statuses as of 02/18/2025) Active Problems Problem Noted Date Diagnosed Date [...] staff contact office to notify of [facility] recommendation, possibly consider d.c maxzide and maximize [...] Plan (08/08/2024 3:17 PM EDT): Follows with [facility] hematology Routine labs monitored by hem/onc Labs pending today Iron infusion 08/02 Blood transfusion 08/05 Assessment & Plan (07/15/2024 6:05 PM EDT): Follows with [facility] hematology Routine labs monitored by hem/onc Update CBC next week Assessment & Plan (03/13/2024 11:24 AM EDT): Follows with [facility] hematology Routine labs monitored by hem/onc Update CBC tomorrow PRBC transfusions 01/2024, 02/2024 Assessment & Plan (10/17/2023 9:43 AM EST): Followed closely by [facility] hematology. No identified cause of HUNTER. Weekly labs monitored by hem/onc. Most recent hgb 8.7 Assessment & Plan (05/02/2023 1:04 PM EDT): Followed closely by [facility] hematology. [...] (09/01/2024): Follows with Dr Shannon Zhang in [place] via telemed for PD Assessment & Plan (09/01/2024 7:15 PM EST): Continue aricept and amantadine Family assists with 15/05 care Assessment & Plan (08/08/2024 3:14 PM EDT): Continue aricept and amantadine Family assists with / care Assessment & Plan (07/15/2024 6:06 PM [...] knees 03/21/2018 Coronary artery disease invo lving winneb[place] coronary artery of [place] heart without angina pectoris 03/21/2018 Assessment & [...] as of this encounter (statuses as of 02/18/2025) Resolved Problems Problem Noted Date Diagnosed Date [...] as of this encounter (statuses as of 02/18/2025) Immunizations Name Administration Dates Next Due COVID-19 mRNA, LNP-s, No Pre serve, 2-Dose Series ([employer]) 11/03/2021,12/19/2020,11/28/2020 Covid-19 Ad26, Single Dose ([employer]/J&J) 12/19/2020,11/28/2020 DTaP Dipth/Tet/Acell Pertussis (Infanrix), Peds 10/24/2019 Pneumococcal Conjugate Vacc, 13 Valent (Prevnar) 04/27/2016 Pneumococcal Polysaccharide PPV23 (Pneumovax) 08/27/2009 Season Influenza, Quad, PF, Adjuvanted, 65+ Yrs, IM (FLUAD) 07/07/2020 Seasonal Influenza Vac., MDV , IM, 0.5 mL (Fluzone) 08/23/2016,07/03/2015,07/14/2014,06/23,07/13/2012,07/15/2011,07/27/20 10,07/02/2009,09/03/2008,08/28/2007,1 10/28/2005 07/06/2014 Seasonal Influenza Virus Vac cine, Unspecified Formulation 07/07/2020,07/31/2019,07/04/2018,10/0 01/2017,08/23/2016,07/25/2016,07/03/20 15,07/14/2014,07/06/2013,07/13/2012,0 07/15/2011,07/27/2010,07/02/2009,09/03,08/28/2007,08/28/2006, 5 Seasonal Influenza, High Dos [...] 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 Not on file Not on fi le Not on file Not on file Not on file Not on file documented as of this encounter Plan of Treatment Upcoming Encounters Date Type Department Care Team (Late st Contact Info) Description 03/12/2025 3:30 PM EDT Home Visit Care at Home [address] [address] Betina Jacob PA-C [address] [address] 03/18/2025 11:15 AM EDT Office Visit Urology, [facility] [address] [phone] Kalpesh Funes MD [address] [address] 03/25/2025 9:30 AM EDT [facility] Visit [facility] [place] [address] [facility] [place] [address] Peggy De, RN [address] [place] [address] 04/08/2025 7:05 AM EDT Laboratory Lab Mobile Phlebotomy [place] [address] [address] [place], [facility] Mobile Home Draw [address] [address] Health Maintenance Due Date Last Done Comments Alpha-1 Antitrypsin 1963 Diabetic Foot Exam 03/27/2021 03/27/2020, 08/23/2018 Diabetic Eye Exam 11/01/2023 11/01/2022, , 11/01/2022, Additional history exists Albumin/Creatinine Ratio 12/27/2023 023, 03/08/2019, 04/09/2014 HbA1c 11/23/2024 05/23/2024, 03/24, 12/26/2022, Additional history exists CKD PHOS USE SMARTSET 83749 12/07/202411/23, 12/26/2022, 06/21/2021 Adult Wellness Visit 03/06/2025 03/06/2024, 11/02/19 23 O2 ASSESSMENT COMPLETED IN PAST YEAR FOR COPD 04/12/2025 04/12/2024 GFR 07/05/2025 01/02/2025, 10/25, 11/07/2024, Additional history exists Depression Screening 08/06/2025 08/06/2024 CKD HGB USE SMARTSET 53009 01/02/202601/02, 01/02/2025, 11/21/2024, Additional history exists DTap/Tdap [...] this encounter Medical Devices Implanted Type Area Well Drill Operator Cable Tool Device Identifier Shelf Expiration Date Model / Serial / Lot Lens Intraoc 22.5 - [id number] - [id number] Implanted:Qty: 1 on 05/22/2018 by Jasbir Maurer MD at OR [facility] Right: Eye BAUSCH 11/22/2022 [id number] / [id number] / [id number] Lens Intraoc 21.0 - [id number] - [id number] Implanted:Qty: 1 on 06/05/2018 by Jasbir Maurer MD at OR [facility] Left: Eye BAUSCH 12/20/2022 [id number] / [id number] / Duraclip 16mm Xlg Repostn - [id number] Implanted:Qty: 1 on 04/12/2024 by Edilberto Lujan MD at OR [facility] [employer] [id number] 12/08/2024 [id number] / / [id number] Duraclip 16mm Xlg Repostn - [id number] Implanted:Qty: 1 on 04/12/2024 by Edilberto Lujan MD at OR [facility] [employer]ACHO [id number] 12/08/2024 [id number] / / [id number] Duraclip 16mm Xlg Repostn - [id number] Implanted:Qty: 1 on 04/12/2024 by Edilberto Lujan MD at OR [facility] [employer] NACH[employer] [id number] 12/08/2024 [id number] / / [id number] documented as of this encounter Procedures Procedure Name Priority Date/Time Associated Diagnosis Comments DERM EXAM - DERM (IMAGES ONLY, NO REPORT) Routine 02/17/2025 4:30 PM EDT Atopic dermatitis documented in this encounter Results * DERM EXAM - DERM (IMAGES ONLY, NO REPORT) (02/17/2025 4:30 PM EDT) Narrative 02/17/2025 4:30 PM EDT This is an imaging study not interpreted or resulted by a [facility] or [employer] contracted radiologist. Vicky Hoffman PA-C RADIOLOGY ([facility]) Final Result documented in this encounter Advance Directives * [...] patient or by statute hierarchy) Care Teams Workforce Consultant Relationship Specialty Start Date End Date Michael Hinton MD [address] [place] [place] [address] PCP - General Family Medicine 08/07/17 documented as of this encounter
--- OUTSIDE RECORDS SUMMARY | 2025-03-05 02:13 | External Medical Summary | Summary of Care ---
Author Name Unknown Organization [facility] Address [address] [place] [address] Phone [phone] Care Team Providers Care Qa Lead Name Role Phone Michael Hinton MD Primary Care Provider [phone] Reason for Referral * Evaluate & Treat - Unlimited Visits (Within 10 days (routine)) - Authorized Specialty Diagnoses / Procedures Referred By Bahman akhtar Referred To Contact Dermatology Diagnoses Flexural atopic dermatitis Michael Hinton MD [address] [facility] [place] [address] Phone: tel: fax: Referral ID Status Reason Start Date Expiration Date Visits Requested Visits Authorized [id number] Authorized Specialty Services Required 02/19/2025 999 999 Question Answer Referral Priority Within 10 days (routine) Where should this appointment be scheduled? [facility] Are you referring the patient for Mohs Surgery and have a current positive skin cancer biopsy result? No What is the reason for the patient referral? Rash/Skin Check/Eval of Lesion or Mole Reason for Visit * Reason Onset Date Comments Referral 02/19/2025 Dermatology Encounter Details Date Type Department Care Team (Late st Contact Info) Description 02/19/2025 Telephone Family Practice [facility] [email or web address] [place] [address] Michael Hinton MD [email or web address] [place] [address] Referral (Dermatology) Allergies Active Allergy Reactions Criticality Noted Date Comments Fabiano Inhibitors Cough 06/09/2017 Carbidopa High 08/30/2024 Other Reaction(s): constipation Carbidopa-Levodopa 03/17/2021 Constipation Levodopa High 08/30/2024 Other Reaction(s): constipation Nsaids Rash 05/17/2018 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 PLEASE SCHEDULE FOLLOW UP APPOINTMENT. [phone] 90 Capsule 1 12/11/2024 10:05 AM EST 12/09/19 25 Active OneTouch Delica Lancets 33GIndications:Typ e 2 diabetes mellitus with hemoglobin A1c goal of less than 8.0% (HCC) Use up to 4 times a day 400 Each 3 01/14/2025 10:58 AM EDT 01/11/20 25 Active OneTouch Verio In Vitro Strip (Glucose Blood)Indications: Type 2 diabetes mellitus with hemoglobin A1c goal of less than 8.0% ([facility]) Use up to 4 times a day E11.9 400 Strip 3 01/14/2025 2:20 PM EDT 01/11/20 25 Active D-Care Glucometer w/Device KitIndications:Typ e 2 diabetes mellitus with hemoglobin A1c goal of less than 8.0% ([facility]) Use as directed. 1 Kit 01/14/2025 8:27 [...] up. Will recheck BNP and BMP on [place] with his other labs. Assessment & Plan [...] have staff contact office to notify of [facility] recommendation, possibly consider d.c maxzide and [...] Plan (08/08/2024 3:17 PM EDT): Follows with [facility] hematology Routine labs monitored by hem/onc Labs pending today Iron infusion 08/02 Blood transfusion 08/05 Assessment & Plan (07/15/2024 6:05 PM EDT): Follows with [facility] hematology Routine labs monitored by hem/onc Update CBC next week Assessment & Plan (03/13/2024 11:24 AM EDT): Follows with [facility] hematology Routine labs monitored by hem/onc Update CBC tomorrow PRBC transfusions 01/2024, 02/2024 Assessment & Plan (10/17/2023 9:43 AM EST): Followed closely by [facility] hematology. No identified cause of HUNTER. Weekly labs monitored by hem/onc. Most recent hgb 8.7 Assessment & Plan (05/02/2023 1:04 PM EDT): Followed closely by [facility] hematology. No identified cause of [...] (09/01/2024): Follows with Dr Shannon Zhang in [place] via telemed for PD Assessment & Plan [...] of deering heart without angina pectoris 03/21/2018 Assessment & [...] AM EDT): -Continue amantadine Followed by Dr. Shannno Bowman via telemedicine Assessment & Plan (01/24/2024 [...] document from 11/13/[address] [facility]. 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 Awaiting an opening to offer them. * Telephone Encounter - Nisreen Arrington OSA - 02/20/2025 9:47 AM EDT Please call pt to schedule derm thank you * Telephone Encounter - Michael Hinton MD - 02/19/2025 1:32 PM EDT Referral placed please assist with scheduling. * Telephone Encounter - Petra Poon LPN - 02/19/2025 1:28 PM EDT Pended, if agreeable please sign * Telephone Encounter - Delmi Freed OSA - 02/19/2025 11:44 AM EDT Needs a referral placed for dermatology came in asking for appt since husbands skin is so bad Wants at [facility] Please place if agree documented in this encounter Plan of Treatment Upcoming Encounters Date Type Department Care Team (Late st Contact Info) Description 03/12/2025 3:30 PM EDT Home Visit Care at Home [address] [place] [address] Betina Jacob PA-C [address] [place] [address] 03/18/2025 11:15 AM EDT Office Visit Urology, [facility] [address] [phone] Kalpesh Funes MD [address] [place] [address] 03/25/2025 9:30 AM EDT Home Visit [facility], [facility] [address] [place] [address] Peggy De, RN [address] [place] [address] 04/08/2025 7:05 AM EDT Laboratory Lab Mobile Phlebotomy [place] [address] [address] [facility] Mobile Home Draw [facility] [address] Scheduled Referrals Name Type Priority Associated Diagnoses Orde r Schedule DERMATOLOGY REFERRAL OP Referral Within 10 days (routine) Flexural atopic dermatitis Ordered: 02/19/2025 Health Maintenance Due Date Last Done Comments Alpha-1 Antitrypsin 1963 Diabetic Foot Exam 03/27/2021 03/27/2020, 08/23/2018 Diabetic Eye Exam 11/01/2023 11/01/2022, , 11/01/2022, Additional history exists Albumin/Creatinine Ratio 12/27/2023 023, 03/08/2019, 04/09/2014 HbA1c 11/23/2024 05/23/2024, 03/24, 12/26/2022, Additional history exists CKD PHOS USE SMARTSET 98322 12/07/202411/23, 12/26/2022, 06/21/2021 Adult Wellness Visit 03/06/2025 03/06/2024, 11/02/19 23 O2 ASSESSMENT COMPLETED IN PAST YEAR FOR COPD 04/12/2025 04/12/2024 GFR 07/05/2025 01/02/2025, 10/25, 11/07/2024, Additional history exists Depression Screening 08/06/2025 08/06/2024 CKD HGB USE SMARTSET 88695 01/02/202601/02, 01/02/2025, 11/21/2024, Additional history exists DTap/Tdap [...] this encounter Medical Devices Implanted Type Area Operations Administrator Device Identifier Shelf Expiration Date Model / Serial / Lot Lens Intraoc 22.5 - [id number] - [id number] Implanted:Qty: 1 on 05/22/2018 by Jasbir Maurer MD at OR [facility] Right: Eye BAUSCH 11/22/2022 [id number] / [id number] / [id number] Lens Intraoc 21.0 - [id number] - [id number] Implanted:Qty: 1 on 06/05/2018 by Jasbir Maurer MD at OR [facility] Left: Eye BAUSCH 12/20/2022 [id number] / [id number] / Duraclip 16mm Xlg Repostn - [id number] Implanted:Qty: 1 on 04/12/2024 by Edilberto Lujan MD at OR [facility] [employer] [id number] 12/08/2024 [id number] / / [id number] Duraclip 16mm Xlg Repostn - [id number] Implanted:Qty: 1 on 04/12/2024 by Edilberto Lujan MD at OR [facility] [employer] [id number] 12/08/2024 [id number] / / [id number] Duraclip 16mm Xlg Repostn - [id number] Implanted:Qty: 1 on 04/12/2024 by Edilberto Lujan MD at OR [facility] [employer] [id number] 12/08/2024 [id number] / / [id number] documented as of this encounter Visit Diagnoses [...] disease, without long-term current use of insulin ([facility]) Hypertensive heart and kidney disease with chronic [...] diabetic peripheral angiopathy without gangrene, unspecified whether half-way insulin use (HCC) Coronary artery disease involving de[place] coronary artery of deering heart without angina pectoris Hypertensive heart and [...] mitral valve regurgitation Coronary artery disease involving de[place] coronary artery of deering heart without angina pectoris Paroxysmal atrial fibrillation [...] mitral valve regurgitation Coronary artery disease involving de[place] coronary artery of deering heart without angina pectoris Stage 3b chronic [...] diarrhea Intestinal infection due to clostridium difficile Flexural atopic dermatitis- Primary Other atopic dermatitis and related conditions documented in this encounter Advance Directives * [...] Agent Relationshi p Communication Ashley Meek [facility] Health Care Repr esentative (appointed verbally by patient or by statute hierarchy) Care Teams Qa Lead Relationship Specialty Start Date End Date Michael Hinton MD [address] [place] [address] PCP - General Family Medicine 08/07/17 documented as of this encounter
--- OUTSIDE RECORDS SUMMARY | 2025-03-05 02:14 | External Medical Summary | Summary of Care ---
Author Name Unknown Organization [facility] Address [address] [place] [address] Phone [phone] Care Team Providers Care Mallet And Die Cutter Name Role Phone Michael Hinton MD Primary Care Provider [phone] Reason for Visit * Reason Comments Skin Growth X 1 week, no injury, sore spot on arm. Some bleeding this morning, but mostly sore/scabbed. Warm to touch Encounter Details Date Type Department Care Team (Late st Contact Info) Description 01/31/2025 12:20 PM EDT Office Visit Family Practice [facility] [address] [place] [address] Xi Pina CRNP [address] [place] [address] Wound, open, arm, forearm, right, initial encounter*; Type 2 diabetes mellitus with hemoglobin A1c goal of less than 8.0% (FORMERLY [facility]); Recurrent Clostridium difficile diarrhea Allergies Active Allergy Reactions Criticality Noted Date Comments Fabiano Inhibitors Cough 06/09/2017 Carbidopa High 08/30/2024 Other Reaction(s): constipation Carbidopa W-Levodopa 03/17/2021 Constipation Levodopa High 08/30/2024 Other Reaction(s): constipation Nsaids Rash 05/17/2018 Contraindicated per can piler documented as of this encounter (statuses as of 01/31/2025) Medications DIURETIC TITRATION PLAN If no improvement [...] mouth in the morning. 90 Tablet 3 11/04/2024 3:03 PM EST 4 Active Triamcinolone Acetonide 0.1 % External Ointment (Aristocort) Apply to legs daily with dressing changes 454 g 1 4 Active Saccharomyces boulardii 250 MG Oral Capsule (Florastor)Indic ations:Clostridi um difficile diarrhea Take 1 Capsule by mouth in the morning and 1 Capsule before bedtime. 90 Capsule 3 4 Active Additional Information Patient not taking.Reported on 01/31/2025 Metoprolol Succinate ER 50 MG Oral Tablet Extended Release 24 Hour (Toprol XL) Take 1 Tablet by mouth in the morning. 90 Tablet 3 11/19/2024 5:23 PM EST 4 Active Dificid 200 MG Oral Tablet (Fidaxomicin) Take 1 Tablet by mouth every other day. 35 Tablet 4 Active Colestipol HCl 1 GM Oral Tablet (Colestid) take 2 tablets by mouth with supper and 2 tablets by mouth at bedtime. Adjust as needed. 360 Tablet 3 12/04/2024 12:24 PM EST 4 Active Additional Information Patient not taking.Reported on [...] 3 10/10/2024 4:25 PM EST 4 Active Donepezil HCl 5 MG Oral Tablet (Aricept) Take 1 tablet (5 mg total) by mouth every morning . 90 Tablet 1 01/20/2025 7:20 AM EDT 4 Active Torsemide 20 MG Oral Tablet (Demadex)Indicat ions:Paroxysmal atrial fibrillation (HCC),Nonrheumat ic mitral valve regurgitation,Co ronary artery disease involving 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 pectoris,Stage 3b chronic kidney disease (HCC) Take 3 Tablets by mouth once a day on Monday, Monday, and Monday only AND 2 Tablets once a day on Monday, , Monday, and Monday only. 5 Active Lidocaine 5 % External Patch (Lidoderm) Place 1 Patch over 12 hours topically on the skin daily. 30 Patch 5 Active Additional Information Patient not taking.Reported on 01/31/2025 Amantadine HCl 100 MG Oral Capsule (Symmetrel) Take 1 capsule (100 mg total) by mouth daily . PLEASE SCHEDULE FOLLOW UP APPOINTMENT. [phone] 90 Capsule 1 12/11/2024 10:05 AM EST 5 Active Chlorhexidine Gluconate 0.12 % Mouth/Throat Solution (Peridex) Swish and spit 15 mL in the morning and 15 mL before bedtime. 473 mL 5 5 Active Additional Information Patient not taking.Reported on 01/31/2025 Nystatin 443726 UNIT/GM External Cream Apply topically to affected area 2 times a day. To affacted area for two weeks. 30 g 2 5 Active Magic Swizzle (Lidocaine-Benad ryl-Maalox) oral solution Swish and spit 15 mL 2 times a day as needed (oral sores or pain). 300 mL 1 5 Active OneTouch Delica Lancets 33GIndications:T ype 2 [...] 90 Tablet 3 01/24/2025 4:55 PM EDT 5 Active Mupirocin 2 % External Ointment (Bactroban)Indic ations:Wound, open, arm, forearm, right, initial encounter Apply topically to affected area 2 times a day for 14 days. To affected area for up to 14 days. 22 g 5 02/15/20 25 Active documented as of this encounter (statuses as of 01/31/2025) Active Problems Problem Noted Date Diagnosed Date [...] have staff contact office to notify of [facility] recommendation, possibly consider d.c maxzide and [...] (09/01/2024): Follows with Dr Shannon Zhang in [place] via telemed for PD Assessment & Plan [...] knees 03/21/2018 Coronary artery disease invo lving 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 pectoris 03/21/2018 Assessment & [...] as of this encounter (statuses as of 01/31/2025) Resolved Problems Problem Noted Date Diagnosed Date [...] as of this encounter (statuses as of 01/31/2025) Immunizations Name Administration Dates Next Due COVID-19 mRNA, LNP-s, No Pre serve, 2-Dose Series (modulR) 11/03/2021,12/19/2020,11/28/2020 Covid-19 Ad26, Single Dose ([employer]/J&J) 12/19/2020,11/28/2020 DTaP Dipth/Tet/Acell Pertussis (Infanrix), Peds 10/24/2019 [...] No 03/07/2024 Does the household have a [facility] source [facility] income? 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 Subjective Jesus Jose is a 79 year old male that presents for Skin Growth (X 1 week, no injury, sore spot on arm. Some bleeding this morning, but mostly sore/scabbed. Warm to touch) HPI Here with with concerns about a wound on his R forearm just under his elbow. Can't recall any injury to it. Is tender to touch. Current Outpatient Medications Medication Sig Dispense Refill Escitalopram Oxalate 20 MG Oral Tablet (Lexapro) take one tablet by mouth daily in the morning 90 Tablet 3 D-Care Glucometer w/Device Kit Use as directed. 1 Kit 0 Magic Swizzle (Xclcfkmss-Bpolqzsg-Nzucxk) oral solution Swish and spit 15 mL 2 times a day as needed (oral sores or pain). 300 mL 1 OneTouch Delica Lancets 33G Use up to 4 times a day 400 Each 3 OneTouch Verio In Vitro Strip (Glucose Blood) Use up to 4 times a day E11.9 400 Strip 3 Nystatin 828925 UNIT/GM External Cream Apply topically to affected area 2 times a day. To affacted area for two weeks. 30 g 2 Amantadine HCl 100 MG Oral Capsule (Symmetrel) Take 1 capsule (100 mg total) by mouth daily . PLEASE SCHEDULE FOLLOW UP APPOINTMENT. [phone] 90 Capsule 1 Torsemide 20 MG Oral Tablet (Demadex) Take 3 Tablets by mouth once a day on Monday, Monday, and Monday only AND 2 Tablets once a day on Monday, , Monday, and Monday only. Donepezil HCl 5 MG Oral Tablet (Aricept) Take 1 tablet (5 mg total) by mouth every morning . 90 Tablet 1 buPROPion HCl ER (XL) 150 MG Oral [...] mouth in the morning. 45 Tablet 3 Dificid 200 MG Oral Tablet (Fidaxomicin) Take 1 Tablet by mouth every other day. 35 Tablet 0 Metoprolol Succinate ER 50 MG Oral Tablet Extended Release 24 Hour (Toprol XL) Take 1 Tablet by mouth in the morning. 90 Tablet 3 Triamcinolone Acetonide 0.1 % External Ointment (Aristocort) Apply to legs daily with dressing changes 454 g 1 Allopurinol 300 MG Oral Tablet (Zyloprim) Take 1 Tablet by mouth in the morning. 90 Tablet 3 DIURETIC TITRATION PLAN If no improvement on day 3, contact heart failure managing provider. 1 Each0 Chlorhexidine Gluconate 0.12 % Mouth/Throat Solution (Peridex) Swish and spit 15 mL in the morning and 15 mL before bedtime. (Patient not taking: Reported on 01/31/2025) 473 mL 5 Lidocaine 5 % External Patch (Lidoderm) Place 1 Patch over 12 hours topically on the skin daily. (Patient not taking: Reported on 01/31/2025) 30 Patch 0 Colestipol HCl 1 GM Oral Tablet (Colestid) take 2 tablets by mouth with supper and 2 tablets by mouth at bedtime. Adjust as needed. (Patient not taking: Reported on 01/31/2025) 360 Tablet 3 Saccharomyces boulardii 250 MG Oral Capsule (Florastor) Take 1 Capsule by mouth in the morning and 1 Capsule before bedtime. (Patient not taking: Reported on 01/31/2025) 90 Capsule 3 Betamethasone Dipropionate 0.05 % External Ointment APPLY TO SKIN LESIONS AND SCALP LESIONS UP TO TWO TIMES A DAY FOR NO LONGER THAN 2 WEEKS AT A TIME FOR ITCH. (THEN TAKE A 2 WEEK BREAK) 45 g 2 No current facility-administered medications for this visit. Objective BP 118/64 | Pulse 64 Physical Exam Vitals reviewed. Constitutional: General: He is not in acute distress. Skin: Neurological: Mental Status: He is alert. Mental status is at baseline. Assessment and Plan Wound, open, arm, forearm, right, initial encounter Appears to be an abrasion - treatment as below. Per prefers to avoid oral antibiotics due to history of recurrent cdiff. I do not think this requires oral antibiotics at this time but they will follow up if it worsens. Orders: Mupirocin 2 % External Ointment (Bactroban); Apply topically to affected area 2 times a day for 14 days. To affected area for up to 14 days. Type 2 diabetes mellitus with hemoglobin A1c goal of less than 8.0% (HCC) Recurrent Clostridium difficile diarrhea Wrap-Up Follow Up: Return if symptoms worsen or fail to improve. I spent a total of 10-19 minutes (exact time 15 mins) on the date of service in preparation, delivery, and documentation of the care provided to Jesus Jose excluding any time spent in the performance of separately billed services. documented in this encounter Miscellaneous Notes * Assessment & Plan Note - Xi Pina CRNP - 01/31/2025 2:48 PM EDT Associated Problem(s): Type 2 diabetes mellitus with hemoglobin A1c goal of less than 8.0% (HCC) * Assessment & Plan Note - Xi Pina CRNP - 01/31/2025 2:48 PM EDT Associated Problem(s): Recurrent Clostridium difficile diarrhea documented in this encounter Plan of Treatment Upcoming Encounters Date Type Department Care Team (Late st Contact Info) Description 02/11/2025 9:30 AM EDT Home Visit [facility], [address] [place] [address] Peggy De, RN [address] [place] [address] 03/12/2025 3:30 PM EDT Home Visit Care at Home [address] [place] [address] Betina Jacob PA-C [address] [place], [place] [id number] 03/18/2025 11:15 AM EDT Office Visit Urology, [facility] [address] [place] [phone] Kalpesh Funes MD [address] [place] [address] 04/08/2025 7:05 AM EDT Laboratory Lab Mobile Phlebotomy [place] [address] [facility] [place] [address] [facility] Mobile Home Draw [address] [place] [address] Health Maintenance Due Date Last Done Comments Alpha-1 Antitrypsin 1963 Diabetic Foot Exam 03/27/2021 03/27/2020, 08/23/2018 Diabetic Eye Exam 11/01/2023 11/01/2022, , 11/01/2022, Additional history exists Albumin/Creatinine Ratio 12/27/2023 023, 03/08/2019, 04/09/2014 HbA1c 11/23/2024 05/23/2024, 03/24, 12/26/2022, Additional history exists CKD PHOS USE SMARTSET 92398 12/07/202411/23, 12/26/2022, 06/21/2021 Adult Wellness Visit 03/06/2025 03/06/2024, 11/02/19 23 O2 ASSESSMENT COMPLETED IN PAST YEAR FOR COPD 04/12/2025 04/12/2024 GFR 07/05/2025 01/02/2025, 10/25, 11/07/2024, Additional history exists Depression Screening 08/06/2025 08/06/2024 CKD HGB USE SMARTSET 52041 01/02/202601/02, 01/02/2025, 11/21/2024, Additional history exists DTap/Tdap [...] this encounter Medical Devices Implanted Type Area Coconut Jelly Roller Device Identifier Shelf Expiration Date Model / Serial / Lot Lens Intraoc 22.5 - [id number] - [id number] Implanted:Qty: 1 on 05/22/2018 by Jasbir Maurer MD at OR [facility] Right: Eye BAUSCH 11/22/2022 [id number] / [id number] / [id number] Lens Intraoc 21.0 - [id number] - [id number] Implanted:Qty: 1 on 06/05/2018 by Jasbir Maurer MD at OR [facility] Left: Eye BAUSCH 12/20/2022 [id number] / [id number] / Duraclip 16mm Xlg Repostn - [id number] Implanted:Qty: 1 on 04/12/2024 by Edilberto Lujan MD at OR [facility] [employer] [id number] 12/08/2024 [id number] / / [id number] Duraclip 16mm Xlg Repostn - [id number] Implanted:Qty: 1 on 04/12/2024 by Edilberto Lujan MD at OR [facility] [employer] [id number] 12/08/2024 [id number] / / [id number] Duraclip 16mm Xlg Repostn - [id number] Implanted:Qty: 1 on 04/12/2024 by Edilberto Lujan MD at OR [facility] [employer] [id number] 12/08/2024 [id number] / / [id number] documented as of this encounter Visit Diagnoses [...] diabetic peripheral angiopathy without gangrene, unspecified whether fdc insulin use (HCC) Coronary artery disease involving 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 pectoris Hypertensive heart and [...] mitral valve regurgitation Coronary artery disease involving 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 pectoris Paroxysmal atrial fibrillation [...] mitral valve regurgitation Coronary artery disease involving 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
--- OUTSIDE RECORDS SUMMARY | 2025-03-05 02:14 | External Medical Summary | Summary of Care ---
Author Name Unknown Organization [facility] Address [address] [place] [address] Phone [phone] Care Team Providers Care Message Clerk Name Role Phone Michael Hinton MD Primary Care Provider [phone] Reason for Visit * Reason Onset Date Comments [facility]: Screening 01/30/2025 Encounter Details Date Type Department Care Team (Late st Contact Info) Description 01/30/2025 Telephone [facility], [facility] [address] [facility] [place] [address] Gloria Redmond LPN [address] [facility] [place] [address] [facility]: Screening Allergies Active Allergy Reactions Criticality Noted Date Comments Fabiano Inhibitors Cough 06/09/2017 Carbidopa High 08/30/2024 Other Reaction(s): constipation Carbidopa W-Levodopa 03/17/2021 Constipation Levodopa High 08/30/2024 Other Reaction(s): constipation Nsaids Rash 05/17/2018 Contraindicated per curb machine operator documented as of this encounter [...] Active Additional Information Patient not taking.Reported on 01/07/2025 Metoprolol Succinate ER 50 MG Oral Tablet Extended Release 24 Hour (Toprol XL) Take 1 Tablet by mouth in the morning. 90 Tablet 3 11/19/2024 5:23 PM EST 4 Active Dificid 200 MG Oral Tablet (Fidaxomicin) Take 1 Tablet by mouth every other day. 35 Tablet 4 Active Additional Information Patient not taking.Reported on 01/07/2025 Colestipol HCl 1 GM Oral Tablet (Colestid) take 2 tablets by mouth with supper and 2 tablets by mouth at bedtime. Adjust as needed. 360 Tablet 3 12/04/2024 12:24 PM EST 4 Active Additional Information Patient not taking.Reported on 01/07/2025 Spironolactone 25 MG Oral Tablet (Aldactone) Take [...] mitral valve regurgitation,Co ronary artery disease involving chippewa-cree coronary artery of chip[place]cree heart without angina pectoris,Stage 3b chronic kidney [...] Active Additional Information Patient not taking.Reported on 01/07/2025 Amantadine HCl 100 MG Oral Capsule (Symmetrel) Take 1 capsule (100 mg total) by mouth daily . PLEASE SCHEDULE FOLLOW UP APPOINTMENT. [phone] 90 Capsule 1 12/11/2024 10:05 AM EST 5 Active Chlorhexidine Gluconate 0.12 % Mouth/Throat Solution (Peridex) Swish and spit 15 mL in the morning and 15 mL before bedtime. 473 mL 5 5 Active Additional Information Patient not taking.Reported on 01/07/2025 Nystatin 734023 UNIT/GM External Cream Apply topically to affected [...] 3 01/24/2025 4:55 PM EDT 5 Active documented as of this encounter (statuses as of 01/31/2025) Active Problems Problem Noted Date Diagnosed Date Myelodysplastic syndrome 11/04/2024 Chronic obstructive pulmonary disease 11/04/2024 Type 2 diabetes mellitus wit h diabetic chronic kidney disease 11/04/2024 Recurrent Clostridium difficile diarrhea 024 Assessment & Plan (09/02/2024 9:51 PM EST): [...] have staff contact office to notify of [facility] recommendation, possibly consider d.c maxzide and [...] Plan (08/08/2024 3:17 PM EDT): Follows with [facility] hematology Routine labs monitored by hem/onc Labs pending today Iron infusion 08/02 Blood transfusion 08/05 Assessment & Plan (07/15/2024 6:05 PM EDT): Follows with [facility] hematology Routine labs monitored by hem/onc Update CBC next week Assessment & Plan (03/13/2024 11:24 AM EDT): Follows with [facility] hematology Routine labs monitored by hem/onc Update CBC tomorrow PRBC transfusions 01/2024, 02/2024 Assessment & Plan (10/17/2023 9:43 AM EST): Followed closely by [facility] hematology. No identified cause of HUNTER. Weekly labs monitored by hem/onc. Most recent hgb 8.7 Assessment & Plan (05/02/2023 1:04 PM EDT): Followed closely by [facility] hematology. [...] (09/01/2024): Follows with Dr Shannon Zhang in [place] via telemed for PD Assessment & Plan [...] knees 03/21/2018 Coronary artery disease invo lving chippewa-cree coronary artery of chippe[place]cree heart without angina pectoris 03/21/2018 Assessment & [...] document from 11/13/[address] bains [facility] [place]. 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 He previously had [employer] but it was DC and collected. He now is using [facility]. In [place] IM to [facility] - they have not contacted patient in the recent days Email to [facility]- They did call pt to collect devices. I replied that pts spouse reports they have already been collected and to stop outreach. documented in this encounter Plan of Treatment Upcoming Encounters Date Type Department Care Team (Late st Contact Info) Description 02/11/2025 9:30 AM EDT [facility] Visit [facility], [facility] [address] [place] [address] Peggy De, RN [address] [place] [address] 03/12/2025 3:30 PM EDT Home Visit Care at Home [address] [place] [address] Betina Jacob PA-C [address] [facility] [place] [address] 03/18/2025 11:15 AM EDT Office Visit Urology, [facility] [address] [place] [id number] Kalpesh Funes MD [address] [facility] [place] [address] 04/08/2025 7:05 AM EDT Laboratory Lab Mobile Phlebotomy [address] [place] [address] [facility] Mobile Home Draw [facility] [place] [address] Health Maintenance Due Date Last Done Comments Alpha-1 Antitrypsin 1963 Diabetic Foot Exam 03/27/2021 03/27/2020, 08/23/2018 Diabetic Eye Exam 11/01/2023 11/01/2022, , 11/01/2022, Additional history exists Albumin/Creatinine Ratio 12/27/2023 023, 03/08/2019, 04/09/2014 HbA1c 11/23/2024 05/23/2024, 03/24, 12/26/2022, Additional history exists CKD PHOS USE SMARTSET 07804 12/07/202411/23, 12/26/2022, 06/21/2021 Adult Wellness Visit 03/06/2025 03/06/2024, 11/02/19 23 O2 ASSESSMENT COMPLETED IN PAST YEAR FOR COPD 04/12/2025 04/12/2024 GFR 07/05/2025 01/02/2025, 10/25, 11/07/2024, Additional history exists Depression Screening 08/06/2025 08/06/2024 CKD HGB USE SMARTSET 88568 01/02/202601/02, 01/02/2025, 11/21/2024, Additional history exists DTap/Tdap [...] this encounter Medical Devices Implanted Type Area Link Machine Operator Device Identifier Shelf Expiration Date Model / Serial / Lot Lens Intraoc 22.5 - [id number] - [id number] Implanted:Qty: 1 on 05/22/2018 by Jasbir Maurer MD at OR [facility] Right: Eye BAUSCH 11/22/2022 [id number] / [id number] / [id number] Lens Intraoc 21.0 - [id number] - [id number] Implanted:Qty: 1 on 06/05/2018 by Jasbir Maurer MD at OR [facility] Left: Eye BAUSCH 12/20/2022 [id number] / [id number] / Duraclip 16mm Xlg Repostn - [id number] Implanted:Qty: 1 on 04/12/2024 by Edilberto Lujan MD at OR [facility] [employer] [id number] 12/08/2024 [id number] / / [id number] Duraclip 16mm Xlg Repostn - [id number] Implanted:Qty: 1 on 04/12/2024 by Edilberto Lujan MD at OR [facility] [employer] [id number] 12/08/2024 [id number] / / [id number] Duraclip 16mm Xlg Repostn - [id number] Implanted:Qty: 1 on 04/12/2024 by Edilberto Lujan MD at OR [facility] [employer] [id number] 12/08/2024 [id number] / / [id number] documented as of this encounter Advance Directives [...] Communication Ashley Fantasma Jose Spouse Health Care Repr esentative (appointed verbally by patient or by statute hierarchy) Care Teams Message Clerk Relationship Specialty Start Date End Date Michael Hinton MD [address] [place] [address] PCP - General Family Medicine 08/07/17 documented as of this encounter
--- OUTSIDE RECORDS SUMMARY | 2025-03-05 02:14 | External Medical Summary | Summary of Care ---
Author Name Unknown Organization [facility] Address [address] [place] [address] Phone [phone] Care Team Providers Care Kindergarten Aide Name Role Phone Michael Hinton MD Primary Care Provider [phone] Reason for Visit * Reason Onset Date Comments [facility]: Maintenance 02/11/2025 Encounter Details Date Type Department Care Team (Late st Contact Info) Description 02/11/2025 Telephone [facility], [facility] [address] [facility] [place] [address] Peggy De, RN [address] [facility] [place] [address] [facility]: Maintenance Allergies Active Allergy Reactions Criticality Noted Date Comments Fabiano Inhibitors Cough 06/09/2017 Carbidopa High 08/30/2024 Other Reaction(s): constipation Carbidopa W-Levodopa 03/17/2021 Constipation Levodopa High 08/30/2024 Other Reaction(s): constipation Nsaids Rash 05/17/2018 Contraindicated per cutter gas documented as of this encounter (statuses as of 02/11/2025) Medications DIURETIC TITRATION PLAN If no improvement [...] 3 02/03/2025 11:22 AM EDT 4 Active Triamcinolone Acetonide 0.1 % External [...] mitral valve regurgitation,Co ronary artery disease involving kaibab coronary artery of kaibab heart without angina pectoris,Stage 3b chronic kidney [...] daily . PLEASE SCHEDULE FOLLOW UP APPOINTMENT. [phone] 90 Capsule 1 12/11/2024 10:05 AM EST 5 Active Chlorhexidine Gluconate 0.12 % Mouth/Throat Solution (Peridex) Swish and spit 15 mL in the morning and 15 mL before bedtime. 473 mL 5 5 Active Additional Information Patient not taking.Reported on 01/31/2025 Nystatin 540841 UNIT/GM External Cream Apply topically to affected [...] days. 22 g 5 02/15/20 25 Active Magic Swizzle (Lidocaine-Benad ryl-Maalox) oral solution Swish and spit 15 mL in the morning and 15 mL before bedtime. 90 mL 5 5 Active documented as of this encounter (statuses as of 02/11/2025) Active Problems Problem Noted Date Diagnosed Date [...] have staff contact office to notify of [facility] recommendation, possibly consider d.c maxzide and [...] Plan (08/08/2024 3:17 PM EDT): Follows with [facility] hematology Routine labs monitored by hem/onc Labs pending today Iron infusion 08/02 Blood transfusion 08/05 Assessment & Plan (07/15/2024 6:05 PM EDT): Follows with [facility] hematology Routine labs monitored by hem/onc Update CBC next week Assessment & Plan (03/13/2024 11:24 AM EDT): Follows with [facility] hematology Routine labs monitored by hem/onc Update CBC tomorrow PRBC transfusions 01/2024, 02/2024 Assessment & Plan (10/17/2023 9:43 AM EST): Followed closely by [facility] hematology. No identified cause of HUNTER. Weekly labs monitored by hem/onc. Most recent hgb 8.7 Assessment & Plan (05/02/2023 1:04 PM EDT): Followed closely by [facility] hematology. [...] anemia in Aug with drop to 4.3. [facility] now monitoring counts weekly. Pt very [...] (09/01/2024): Follows with Dr Shannon Zhang in [place] via telemed for PD Assessment & Plan [...] knees 03/21/2018 Coronary artery disease invo lving kaibab coronary artery of kaibab heart without angina pectoris 03/21/2018 Assessment & [...] as of this encounter (statuses as of 02/11/2025) Resolved Problems Problem Noted Date Diagnosed Date [...] as of this encounter (statuses as of 02/11/2025) Immunizations Name Administration Dates Next Due COVID-19 mRNA, LNP-s, No Pre serve, 2-Dose Series ([employer]) 11/03/2021,12/19/2020,11/28/2020 Covid-19 Ad26, Single Dose ([employer]/J&J) 12/19/2020,11/28/2020 DTaP Dipth/Tet/Acell Pertussis (Infanrix), Peds 10/24/2019 [...] 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 Thx. * Telephone Encounter - Peggy De RN - 02/11/2025 10:[address] Groves, Pt has not received the magic swizzle you ordered. I spoke with [facility] and they cannot send this. The script they received does not have a pharmacy listed for some reason. Can you please send the script to [facility] in [place]? Thank you! documented in this encounter Plan of Treatment Upcoming Encounters Date Type Department Care Team (Late st Contact Info) Description 02/17/2025 3:30 PM EDT Office Visit Dermatology [facility] [address] [place] [address] Vicky Hoffman PA-C [address] [place] [address] 03/12/2025 3:30 PM EDT Home Visit Care at Home [address] [place] [address] Betina Jacob PA-C [address] [place] [address] 03/18/2025 11:15 AM EDT Office Visit Urology, [facility] [address] [place] [address] Kalpesh Funes MD [address] [place] [address] 03/25/2025 9:30 AM EDT [facility] [place], [facility] [address] [place] [address] Peggy De, RN [address] [place] [address] 04/08/2025 7:05 AM EDT Laboratory Lab Mobile Phlebotomy [place] [address] [facility] [place] [address] [place], [facility] Mobile Home Draw [address] [facility] [place] [address] Health Maintenance Due Date Last Done Comments Alpha-1 Antitrypsin 1963 Diabetic Foot Exam 03/27/2021 03/27/2020, 08/23/2018 Diabetic Eye Exam 11/01/2023 11/01/2022, , 11/01/2022, Additional history exists Albumin/Creatinine Ratio 12/27/2023 023, 03/08/2019, 04/09/2014 HbA1c 11/23/2024 05/23/2024, 03/24, 12/26/2022, Additional history exists CKD PHOS USE SMARTSET 04395 12/07/202411/23, 12/26/2022, 06/21/2021 Adult Wellness Visit 03/06/2025 03/06/2024, 11/02/19 23 O2 ASSESSMENT COMPLETED IN PAST YEAR FOR COPD 04/12/2025 04/12/2024 GFR 07/05/2025 01/02/2025, 10/25, 11/07/2024, Additional history exists Depression Screening 08/06/2025 08/06/2024 CKD HGB USE SMARTSET 79495 01/02/202601/02, 01/02/2025, 11/21/2024, Additional history exists DTap/Tdap [...] this encounter Medical Devices Implanted Type Area Relief Map Modeler Device Identifier Shelf Expiration Date Model / Serial / Lot Lens Intraoc 22.5 - [id number] - [id number] Implanted:Qty: 1 on 05/22/2018 by Jasbir Maurer MD at OR [facility] Right: Eye BAUSCH 11/22/2022 [id number] / [id number] / [id number] Lens Intraoc 21.0 - [id number] - [id number] Implanted:Qty: 1 on 06/05/2018 by Jasbir Maurer MD at OR [facility] Left: Eye BAUSCH 12/20/2022 [id number] / [id number] / Duraclip 16mm Xlg Repostn - [id number] Implanted:Qty: 1 on 04/12/2024 by Edilberto Lujan MD at OR [facility] [employer] [id number] 12/08/2024 [id number] / / [id number] Duraclip 16mm Xlg Repostn - [id number] Implanted:Qty: 1 on 04/12/2024 by Edilberto Lujan MD at OR [facility] [employer] [id number] 12/08/2024 [id number] / / [id number] Duraclip 16mm Xlg Repostn - [id number] Implanted:Qty: 1 on 04/12/2024 by Edilberto Lujan MD at OR [facility] engageSimply [facility] [id number] 12/08/2024 [id number] / / [id number] documented as of this encounter Advance Directives [...] patient or by statute hierarchy) Care Teams Kindergarten Aide Relationship Specialty Start Date End Date Michael Hinton MD [address] [facility] [place] [address] PCP - General Family Medicine 08/07/17 documented as of this encounter
--- OUTSIDE RECORDS SUMMARY | 2025-03-05 02:14 | External Medical Summary | Summary of Care ---
Author Name Unknown Organization [facility] Address [address] [place] [address] Phone [phone] Care Team Providers Care Court Recording Monitor Name Role Phone Michael Hinton MD Primary Care Provider [phone] Reason for Visit * Reason Onset Date Comments Appointment 01/27/2025 Encounter Details Date Type Department Care Team (Late st Contact Info) Description 01/27/2025 Telephone [facility], [facility] [address] [place] [phone] Ashley Carmen, LARRY [address] [place] [address] Appointment (//) Allergies Active Allergy Reactions Criticality Noted Date Comments Fabiano Inhibitors Cough 06/09/2017 Carbidopa High 08/30/2024 Other Reaction(s): constipation Carbidopa W-Levodopa 03/17/2021 Constipation Levodopa High 08/30/2024 Other Reaction(s): constipation Nsaids Rash 05/17/2018 Contraindicated per regrader documented as of this encounter (statuses as of 01/28/2025) Medications DIURETIC TITRATION PLAN If no improvement [...] mitral valve regurgitation,Co ronary artery disease involving chefornak coronary artery of chefornak heart without angina pectoris,Stage 3b chronic kidney [...] daily . PLEASE SCHEDULE FOLLOW UP APPOINTMENT. [phone] 90 Capsule 1 12/11/2024 10:05 AM EST 5 Active Chlorhexidine Gluconate 0.12 % Mouth/Throat Solution (Peridex) Swish and spit 15 mL in the morning and 15 mL before bedtime. 473 mL 5 5 Active Additional Information Patient not taking.Reported on 01/07/2025 Nystatin 330373 UNIT/GM External Cream Apply topically to affected [...] as of this encounter (statuses as of 01/28/2025) Active Problems Problem Noted Date Diagnosed Date [...] have staff contact office to notify of [facility] recommendation, possibly consider d.c maxzide and maximize [...] anemia in Aug with drop to 4.3. [facility] now monitoring counts weekly. Pt very pale [...] (09/01/2024): Follows with Dr Shannon Zhang in [place] via telemed for PD Assessment & Plan [...] of chefornak heart without angina pectoris 03/21/2018 Assessment & [...] as of this encounter (statuses as of 01/28/2025) Resolved Problems Problem Noted Date Diagnosed Date [...] as of this encounter (statuses as of 01/28/2025) Immunizations Name Administration Dates Next Due COVID-19 mRNA, LNP-s, No Pre serve, 2-Dose Series ([employer]) 11/03/2021,12/19/2020,11/28/2020 Covid-19 Ad26, Single Dose ([employer]/J&R[employer]pan) 12/19/2020,11/28/2020 DTaP Dipth/Tet/Acell Pertussis (Infanrix), Peds 10/24/2019 [...] No 03/07/2024 Does the household have a [facility] source of income? 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 Not on fi le Not on file Not on file Not on file Not on file documented as of this encounter Miscellaneous Notes * Telephone Encounter - Ashley Carmen OSA - 01/27/2025 4:09 PM EDT Incoming call from to cx and rs the appt with RNCM on 02/[address] appt same time, I found02/11@930 and she was agreeable to that documented in this encounter Plan of Treatment Upcoming Encounters Date Type Department Care Team (Late st Contact Info) Description 02/11/2025 9:30 AM EDT Home Visit [facility] [address] [place] [address] Peggy De RN [address] [place] [address] 03/12/2025 3:30 PM EDT Home Visit Care at Home [address] [facility] [place] [address] Betina Jacob PA-C [address] [facility] [place] [address] 03/18/2025 11:15 AM EDT Office Visit Urology, [facility] [address] [place] [id number] Kalpesh Funes MD [address] [place] [address] 04/08/2025 7:05 AM EDT Laboratory Lab Mobile Phlebotomy [place] [address] [place] [address] [place], [facility] Mobile Home Draw [address] [place] [address] Health Maintenance Due Date Last Done Comments Alpha-1 Antitrypsin 1963 Diabetic Foot Exam 03/27/2021 03/27/2020, 08/23/2018 Diabetic Eye Exam 11/01/2023 11/01/2022, , 11/01/2022, Additional history exists Albumin/Creatinine Ratio 12/27/2023 023, 03/08/2019, 04/09/2014 HbA1c 11/23/2024 05/23/2024, 03/24, 12/26/2022, Additional history exists CKD PHOS USE SMARTSET 55233 12/07/202411/23, 12/26/2022, 06/21/2021 Adult Wellness Visit 03/06/2025 03/06/2024, 11/02/19 23 O2 ASSESSMENT COMPLETED IN PAST YEAR FOR COPD 04/12/2025 04/12/2024 GFR 07/05/2025 01/02/2025, 10/25, 11/07/2024, Additional history exists Depression Screening 08/06/2025 08/06/2024 CKD HGB USE SMARTSET 29197 01/02/202601/02, 01/02/2025, 11/21/2024, Additional history exists DTap/Tdap [...] encounter Medical Devices Implanted Type Area Police Manager Device Identifier Shelf Expiration Date Model / Serial / Lot Lens Intraoc 22.5 - [id number] - [id number] Implanted:Qty: 1 on 05/22/2018 by Jasbir Maurer MD at OR [facility] Right: Eye BAUSCH & LOMB 11/22/2022 [id number] / [id number] / [id number] Lens Intraoc 21.0 - [id number] - [id number] Implanted:Qty: 1 on 06/05/2018 by Jasbir Maurer MD at OR [facility] Left: Eye BAUSCH & LOMB 12/20/2022 [id number] / [id number] / Duraclip 16mm Xlg Repostn - [id number] Implanted:Qty: 1 on 04/12/2024 by Edilberto Lujan MD at OR [facility] [employer] [id number] 12/08/2024 [id number] / / [id number] Duraclip 16mm Xlg Repostn - [id number] Implanted:Qty: 1 on 04/12/2024 by Edilberto Lujan MD at OR [facility] [employer] [id number] 12/08/2024 [id number] / / [id number] Duraclip 16mm Xlg Repostn - [id number] Implanted:Qty: 1 on 04/12/2024 by Edilberto Lujan MD at OR [facility] [employer] [id number] 12/08/2024 [id number] / / [id number] documented as of this encounter Advance Directives [...] patient or by statute hierarchy) Care Teams Court Recording Monitor Relationship Specialty Start Date End Date Michael Hinton MD [address] [place] [address] PCP - General Family Medicine 08/07/17 documented as of this encounter
--- OUTSIDE RECORDS SUMMARY | 2025-03-05 02:14 | External Medical Summary | Summary of Care ---
Author Name Unknown Organization [facility] Address [address] [place] [address] Phone [phone] Care Team Providers Care Head Start Director Name Role Phone Michael Hinton MD Primary Care Provider [phone] Encounter Details Date Type Department Care Team (Late st Contact Info) Description 02/11/2025 9:30 AM EDT Home Visit [facility] [place] [address] Peggy De, RN [address] [facility] [place] [address] Allergies Active Allergy Reactions Criticality Noted Date Comments Fabiano Inhibitors Cough 06/09/2017 Carbidopa High 08/30/2024 Other Reaction(s): constipation Carbidopa W-Levodopa 03/17/2021 Constipation Levodopa High 08/30/2024 Other Reaction(s): constipation Nsaids Rash 05/17/2018 Contraindicated per crew supervisor documented as of this encounter (statuses [...] mitral valve regurgitation,Co ronary artery disease involving tanacross coronary artery of tanacross heart without angina pectoris,Stage 3b chronic kidney [...] daily . PLEASE SCHEDULE FOLLOW UP APPOINTMENT. [phone] 90 Capsule 1 12/11/2024 10:05 AM EST 5 Active Chlorhexidine Gluconate 0.12 % Mouth/Throat Solution (Peridex) Swish and spit 15 mL in the morning and 15 mL before bedtime. 473 mL 5 5 Active Additional Information Patient not taking.Reported on 01/31/2025 Nystatin 834838 UNIT/GM External Cream Apply topically to affected [...] to 14 days. 22 g 5 02/15/20 Active documented as of this encounter (statuses [...] have staff contact office to notify of [facility] recommendation, possibly consider d.c maxzide and [...] Plan (08/08/2024 3:17 PM EDT): Follows with [facility] hematology Routine labs monitored by hem/onc Labs pending today Iron infusion 08/02 Blood transfusion 08/05 Assessment & Plan (07/15/2024 6:05 PM EDT): Follows with [facility] hematology Routine labs monitored by hem/onc Update CBC next week Assessment & Plan (03/13/2024 11:24 AM EDT): Follows with [facility] hematology Routine labs monitored by hem/onc Update CBC tomorrow PRBC transfusions 01/2024, 02/2024 Assessment & Plan (10/17/2023 9:43 AM EST): Followed closely by [facility] hematology. No identified cause of HUNTER. Weekly labs monitored by hem/onc. Most recent hgb 8.7 Assessment & Plan (05/02/2023 1:04 PM EDT): Followed closely by [facility] hematology. [...] anemia in Aug with drop to 4.3. [facility] now monitoring counts weekly. 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 on file Not on fi le Not on file Not on file Not on file Not on file documented as of this encounter Last Filed Vital Signs Vital Sign Reading Time Taken Comments Blood Pressure 140/68 02/11/2025 9:52 AM EDT Pulse 67 02/11/2025 9:52 AM EDT Temperature 35.9 °C (96.7 °F) 02/11/2025 9:52 AM ED T Respiratory Rate 18 02/11/2025 9:52 AM EDT Oxygen Saturation 91% 02/11/2025 9:52 AM EDT Inhaled Oxygen Concentration - - Weight 71.2 kg (157 lb) 02/11/2025 9:52 AM EDT Height - - Body Mass Index 26.13 11/04/2024 11:08 AM EST documented in this encounter Progress Notes * Peggy De, RN - 02/11/2025 9:58 AM EDT Current Concerns: Pt seen for return RNCM visit Weight have been stable - today was 157 lbs via CHM scale LE edema appears to be at baseline No open wounds noted He does have some scabbed areas on posterior legs from scratching - they are dried, no s/s of infection Has been using ammonium lactate cream reports he is going to be seeing dermatology for ongoing issues with scaly skin of legs reports he has not been using oxygen as much at night because he gets bloody noses and humidification has not been helping Advised to get Hewitt gel and see if that helps ordered off Amazon Did received new shoes from foot/wound clinic and reports they are really making a difference - pt has been getting out of car and doing well getting around better asking if his Escitalopram could be increased - feels it could help his anxiety and depression- has been on the 20mg dose for about 2 years Feels he gets anxious and sometimes agitation with his health Will send message to provider for further recommendations Seeing heme/onc with lab monitoring every 3 months now for anemia He did have some blood in toilet a couple weeks ago and heme/onc was aware of this per Pt is not having any other s/s of anemia - will continue to monitor Physical Exam: Physical Exam Constitutional: General: He is not in acute distress. Cardiovascular: Rate and Rhythm: Normal rate. Rhythm irregular. Pulses: Normal pulses. Heart sounds: Normal heart sounds. Pulmonary: Effort: Pulmonary effort is normal. Breath sounds: Rales (faint of BLL) present. Abdominal: General: Bowel sounds are normal. Palpations: Abdomen is soft. Musculoskeletal: Right lower leg: Edema (+2) present. Left lower leg: Edema (+1) present. Skin: General: Skin is warm and dry. Neurological: Mental Status: He is alert and oriented to person, place, and time. Mental status is at baseline. Comments: Forgetful, mild intermittent confusion Review of Systems: Review of Systems Constitutional: Positive for fatigue. HENT: Negative. Eyes: Negative. Respiratory: Positive for shortness of breath (MUSTAFA - at baseline). Cardiovascular: Positive for leg swelling. Genitourinary: Negative. Musculoskeletal: Positive for arthralgias and gait problem. Psychiatric/Behavioral: Positive for confusion (mild, intermittent). Care Plan Goal Progress: Patient will have improved cardiac output. (Progressing) Start: 07/27/24 Expected End: 04/25/25 Patient will achieve & maintain effective breathing pattern. (Progressing) Start: 07/27/24 Expected End: 04/25/25 Orders Placed: No orders of the defined types were placed in this encounter. Medications Given: Care Gaps: Care Gaps Care gaps closed this contact: Education;Medications;Plan of Care (POC) (02/11/25 1006) Type of education: Clinical/disease (02/11/25 1006) Type of medication care gap: Medication adherence;Medication optimization (02/11/25 1006) Type of plan of care (POC) care gap: Adjustment of plan of care (POC) and/or Integrated Care Plan (ICP);Education and review of exacerbation plan (02/11/25 1006) documented in this encounter Plan of Treatment Upcoming Encounters Date Type Department Care Team (Late st Contact Info) Description 02/17/2025 3:30 PM EDT Office Visit Dermatology [facility] [address] [place] [address] Vicky Hoffman PA-C [facility] [place] [address] 03/12/2025 3:30 PM EDT Home Visit Care at Home [address] [place] [address] Betina Jacob PA-C [address] [place] [address] 03/18/2025 11:15 AM EDT Office Visit Urology, [facility] [address] [place] [phone] Kalpesh Funes MD [address] [place] [address] 03/25/2025 9:30 AM EDT [facility], [facility] [place] [address] Peggy De RN [address] [address] 04/08/2025 7:05 AM EDT Laboratory Lab Mobile Phlebotomy [place] [address] [place] [address] [place], [facility] Mobile Home Draw [address] [place] [address] Health Maintenance Due Date Last Done Comments Alpha-1 Antitrypsin 1963 Diabetic Foot Exam 03/27/2021 03/27/2020, 08/23/2018 Diabetic Eye Exam 11/01/2023 11/01/2022, , 11/01/2022, Additional history exists Albumin/Creatinine Ratio 12/27/2023 023, 03/08/2019, 04/09/2014 HbA1c 11/23/2024 05/23/2024, 03/24, 12/26/2022, Additional history exists CKD PHOS USE SMARTSET 84619 12/07/202411/23, 12/26/2022, 06/21/2021 Adult Wellness Visit 03/06/2025 03/06/2024, 11/02/19 23 O2 ASSESSMENT COMPLETED IN PAST YEAR FOR COPD 04/12/2025 04/12/2024 GFR 07/05/2025 01/02/2025, 10/25, 11/07/2024, Additional history exists Depression Screening 08/06/2025 08/06/2024 CKD HGB USE SMARTSET 96738 01/02/202601/02, 01/02/2025, 11/21/2024, Additional history exists DTap/Tdap [...] this encounter Medical Devices Implanted Type Area Nuclear Medicine Chief Technologist Device Identifier Shelf Expiration Date Model / Serial / Lot Lens Intraoc 22.5 - [id number] - [id number] Implanted:Qty: 1 on 05/22/2018 by Jasbir Maurer MD at OR [facility] Right: Eye BAUSCH 11/22/2022 [id number] / [id number] Lens Intraoc 21.0 - [id number] - [id number] Implanted:Qty: 1 on 06/05/2018 by Jasbir Maurer MD at OR [facility] Left: Eye BAUSCH 12/20/2022 [id number] / [id number] / Duraclip 16mm Xlg Repostn - [id number] Implanted:Qty: 1 on 04/12/2024 by Edilberto Lujan MD at OR [facility] [employer] [facility] [id number] 12/08/2024 [id number] / / [id number] Duraclip 16mm Xlg Repostn - [id number] Implanted:Qty: 1 on 04/12/2024 by Edilberto Lujan MD at OR [facility] [employer] NACHO [id number] 12/08/2024 [id number] / / [id number] Duraclip 16mm Xlg Repostn - [id number] Implanted:Qty: 1 on 04/12/2024 by Edilberto Lujan MD at OR [facility] CONMED NACHO [id number] 12/08/2024 [id number] / / [id number] documented as of this encounter Advance Directives [...] patient or by statute hierarchy) Care Teams Head Start Director Relationship Specialty Start Date End Date Michael Hinton MD [address] [place] [address] PCP - General Family Medicine 08/07/17 documented as of this encounter
--- OUTSIDE RECORDS SUMMARY | 2025-03-05 02:14 | External Medical Summary | Summary of Care ---
Author Name Unknown Organization [facility] Address [address] [place] [address] Phone [phone] Care Team Providers Care Bisque Ware Dipper Name Role Phone Serjio Scott MD Primary Care Provider [phone] Reason for Visit * Reason Comments Medication Refill Encounter Details Date Type Department Care Team (Late st Contact Info) Description 01/23/2025 Refill Family Practice [facility] [address] [facility] [place] [address] Serjio Scott MD [address] [place] [address] Allergies Active Allergy Reactions Criticality Noted Date Comments Fabiano Inhibitors Cough 06/09/2017 Carbidopa High 08/30/2024 Other Reaction(s): constipation Carbidopa W-Levodopa 03/17/2021 Constipation Levodopa High 08/30/2024 Other Reaction(s): constipation Nsaids Rash 05/17/2018 Contraindicated per supervisor crack off documented as of this encounter (statuses as of 01/23/2025) Medications DIURETIC TITRATION PLAN If no improvement [...] 90 Tablet 3 11/04/2024 3:03 PM EST 05/13/20 24 Active Triamcinolone Acetonide 0.1 % [...] 90 Tablet 3 11/19/2024 5:23 PM EST 08/26/20 24 Active Dificid 200 MG Oral Tablet (Fidaxomicin) Take 1 Tablet by mouth every other day. 35 Tablet 08/29/20 24 Active Additional Information Patient not taking.Reported [...] 10/10/2024 4:25 PM EST 10/10/20 24 Active Donepezil HCl 5 MG Oral Tablet (Aricept) Take 1 tablet (5 mg total) by mouth every morning . 90 Tablet 1 01/20/2025 7:20 AM EDT 10/21/20 24 Active Torsemide 20 MG Oral Tablet (Demadex)Indicat ions:Paroxysmal atrial fibrillation (HCC),Nonrheumat ic mitral valve regurgitation,Co ronary artery disease involving [place] coronary artery of [place] heart without angina pectoris,Stage 3b chronic kidney disease (HCC) Take 3 Tablets by mouth once a day on Monday, Monday, and Monday only AND 2 Tablets once a day on Monday, , Monday, and Monday only. 10/25/19 25 Active Lidocaine 5 % External Patch (Lidoderm) Place 1 Patch over 12 hours topically on the skin daily. 30 Patch 11/04/19 25 Active Additional Information Patient not taking.Reported on 01/07/2025 Amantadine HCl 100 MG Oral Capsule (Symmetrel) Take 1 capsule (100 mg total) by mouth daily . PLEASE SCHEDULE FOLLOW UP APPOINTMENT. [phone] 90 Capsule 1 12/11/2024 10:05 AM EST 12/09/19 25 Active Chlorhexidine Gluconate 0.12 % Mouth/Throat Solution (Peridex) Swish and spit 15 mL in the morning and 15 mL before bedtime. 473 mL 5 12/17/19 25 Active Additional Information Patient not taking.Reported on 01/07/2025 Nystatin 780451 UNIT/GM External Cream Apply topically to affected area 2 times a day. To affacted area for two weeks. 30 g 2 12/17/19 25 Active Magic Swizzle (Lidocaine-Benad ryl-Maalox) oral solution Swish and spit 15 mL 2 times a day as needed (oral sores or pain). 300 mL 1 01/11/20 25 Active OneTouch Delica Lancets 33GIndications:T ype 2 [...] daily in the morning 90 Tablet 3 01/24/20 25 Active Escitalopram Oxalate 20 MG Oral Tablet (Lexapro) take one tablet by mouth daily in the morning 90 Tablet 3 11/01/2024 8:54 AM EST 02/09/20 24 025 Discontin ued(Refil l) documented as of this encounter (statuses as of 01/23/2025) Active Problems Problem Noted Date Diagnosed Date [...] have staff contact office to notify of [facility] recommendation, possibly consider d.c maxzide [...] Plan (08/08/2024 3:17 PM EDT): Follows with [facility] hematology Routine labs monitored by hem/onc Labs pending today Iron infusion 08/02 Blood transfusion 08/05 Assessment & Plan (07/15/2024 6:05 PM EDT): Follows with [facility] hematology Routine labs monitored by hem/onc Update CBC next week Assessment & Plan (03/13/2024 11:24 AM EDT): Follows with [facility] hematology Routine labs monitored by hem/onc Update CBC tomorrow PRBC transfusions 01/2024, 02/2024 Assessment & Plan (10/17/2023 9:43 AM EST): Followed closely by [facility] hematology. No identified cause of HUNTER. Weekly labs monitored by hem/onc. Most recent hgb 8.7 Assessment & Plan (05/02/2023 1:04 PM EDT): [facility] [...] (09/01/2024): Follows with Dr Shannon Zhang in [place] via telemed for PD Assessment & Plan [...] knees 03/21/2018 Coronary artery disease invo lving [place] coronary artery of [place] heart without angina pectoris 03/21/2018 Assessment & [...] PM EDT): -Continue amantadine Followed by Dr. Shnanon Bowman via telemedicine every 6 months Assessment [...] as of this encounter (statuses as of 01/23/2025) Resolved Problems Problem Noted Date Diagnosed Date [...] as of this encounter (statuses as of 01/23/2025) Immunizations Name Administration Dates Next Due COVID-19 mRNA, LNP-s, No Pre serve, 2-Dose Series (Digiboo) 11/03/2021,12/19/2020,11/28/2020 Covid-19 Ad26, Single Dose (12 Star Survival/J&J) 12/19/2020,11/28/2020 DTaP Dipth/Tet/Acell Pertussis (Infanrix), Peds 10/24/2019 Pneumococcal Conjugate Vacc, 13 Valent (Prevnar) 04/27/2016 Pneumococcal Polysaccharide PPV23 (Pneumovax) 08/27/2009 Season Influenza, Quad, PF, Adjuvanted, 65+ Yrs, IM (FLUAD) 07/07/2020 Seasonal Influenza Vac., MDV , IM, 0.5 mL (Fluzone) 08/23/2016,07/03/2015,07/14/2014,06/23,07/13/2012,07/15/2011,07/27/20 10,07/02/2009,09/03/2008,08/28/2007,1 10/28/2005 07/06/2014 Seasonal Influenza Virus Vac cine, Unspecified Formulation 07/07/2020,07/31/2019,07/04/2018,1001/2017,08/23/2016,07/25/2016,07/03/20 15,07/14/2014,07/06/2013,07/13/2012,0 07/15/2011,07/27/2010,07/02/2009,09/03,08/28/2007,08/28/2006, 5 Seasonal Influenza, High Dos [...] 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 on file Not on fi le Not on file Not on file Not on file Not on file documented as of this encounter Miscellaneous Notes * Telephone Encounter - Serjio Scott MD - 01/23/2025 10:24 AM EDTSigned Prescriptions: Disp Refills Escitalopram Oxalate 20 MG Oral Tablet (Le*90 Tab*3 Sig: take one tablet by mouth daily in the morningAuthorizing Provider: SERJIO SCOTT documented in this encounter Plan of Treatment Upcoming Encounters Date Type Department Care Team (Late st Contact Info) Description 02/03/2025 11:30 AM EDT [facility] Visit [facility], [facility] [address] [place] [address] Peggy De, RN [address] [place] [address] 03/12/2025 3:30 PM EDT Home Visit Care at Home [address], [place] [id number] Betina Jacob PA-C [address] [place], [place] [id number] 03/18/2025 11:15 AM EDT Office Visit Urology, [facility] [address] [place] [phone] Kalpesh Funes MD [address] [place] [address] 04/08/2025 7:05 AM EDT Laboratory Lab Mobile Phlebotomy [place] [address] [place] [address] [place] [address] [facility] Draw [facility] [place] [address] Health Maintenance Due Date Last Done Comments Alpha-1 Antitrypsin 1963 Diabetic Foot Exam 03/27/2021 03/27/2020, 08/23/2018 Diabetic Eye Exam 11/01/2023 11/01/2022, , 11/01/2022, Additional history exists Albumin/Creatinine Ratio 12/27/2023 023, 03/08/2019, 04/09/2014 HbA1c 11/23/2024 05/23/2024, 03/24, 12/26/2022, Additional history exists CKD PHOS USE SMARTSET 13555 12/07/202411/23, 12/26/2022, 06/21/2021 Adult Wellness Visit 03/06/2025 03/06/2024, 11/02/19 23 O2 ASSESSMENT COMPLETED IN PAST YEAR FOR COPD 04/12/2025 04/12/2024 GFR 07/05/2025 01/02/2025, 10/25, 11/07/2024, Additional history exists Depression Screening 08/06/2025 08/06/2024 CKD HGB USE SMARTSET 98966 01/02/202601/02, 01/02/2025, 11/21/2024, Additional history exists DTap/Tdap [...] this encounter Medical Devices Implanted Type Area Privacy Specialist Device Identifier Shelf Expiration Date Model / Serial / Lot Lens Intraoc 22.5 - [id number] - [id number] Implanted:Qty: 1 on 05/22/2018 by Jasbir Maurer MD at [facility] Right: Eye [employer] 11/22/2022 [id number] / [id number] / [id number] Lens Intraoc 21.0 - [id number] - [id number] Implanted:Qty: 1 on 06/05/2018 by Jasbir Maurer MD at [facility] Left: Eye BAUSCH [employer] LOMB 12/20/2022 [id number] / [id number] / Duraclip 16mm Xlg Repostn - [id number] Implanted:Qty: 1 on 04/12/2024 by Edilberto Lujan MD at OR [facility] SoFi [id number] 12/08/2024 [id number] / / [id number] Duraclip 16mm Xlg Repostn - [id number] Implanted:Qty: 1 on 04/12/2024 by Edilberto Lujan MD at [facility] [employer]ACHO [id number] 12/08/2024 [id number] / / [id number] Duraclip 16mm Xlg Repostn - [id number] Implanted:Qty: 1 on 04/12/2024 by Edilberto Lujan MD at [facility] [employer]ACHO [id number] 12/08/2024 [id number] / / [id number] documented as of this encounter Advance Directives [...] patient or by statute hierarchy) Care Teams Bisque Ware Dipper Relationship Specialty Start Date End Date Serjio Scott MD [address] [place] [address] PCP - General Family Medicine 08/07/17 documented as of this encounter
--- OUTSIDE RECORDS SUMMARY | 2025-03-05 02:15 | External Medical Summary | Summary of Care ---
Author Name Unknown Organization [facility] Address [address] [place] [address] Phone [phone] Care Team Providers Care Well Servicing Rig Operator Name Role Phone Michael Hinton MD Primary Care Provider [phone] Reason for Visit * Reason Onset Date Comments [facility]: Maintenance 01/17/2025 Encounter Details Date Type Department Care Team (Late st Contact Info) Description 01/17/2025 Telephone [facility], [address] [address] Regina Tobar, SECURITY BUSINESS ANALYST [address] [place] [address] [facility]: Maintenance Allergies Active Allergy Reactions Criticality Noted Date Comments Fabiano Inhibitors Cough 06/09/2017 Carbidopa High 08/30/2024 Other Reaction(s): constipation Carbidopa W-Levodopa 03/17/2021 Constipation Levodopa High 08/30/2024 Other Reaction(s): constipation Nsaids Rash 05/17/2018 Contraindicated per t rail turner documented as of this encounter (statuses as of 01/17/2025) Medications DIURETIC TITRATION PLAN If no improvement [...] 2 11/07/2023 10:13 AM EST 4 Active Escitalopram Oxalate 20 MG Oral Tablet (Lexapro) take one tablet by mouth daily in the morning 90 Tablet 3 11/01/2024 8:54 AM EST 4 Active Allopurinol 300 MG [...] mouth in the morning. 90 Capsule 3 10/17/2024 5:00 PM EST 4 Active Atorvastatin Calcium 40 MG Oral [...] mouth every morning . 90 Tablet 1 10/22/2024 4:39 PM EST 4 Active Torsemide 20 MG Oral Tablet (Demadex)Indicat ions:Paroxysmal atrial fibrillation (HCC),Nonrheumat ic mitral valve regurgitation,Co ronary artery disease involving [place] coronary artery of [place] heart without angina pectoris,Stage 3b chronic kidney [...] daily . PLEASE SCHEDULE FOLLOW UP APPOINTMENT. [phone] 90 Capsule 1 12/11/2024 10:05 AM EST 5 Active Chlorhexidine Gluconate 0.12 % Mouth/Throat Solution (Peridex) Swish and spit 15 mL in the morning and 15 mL before bedtime. 473 mL 5 5 Active Additional Information Patient not taking.Reported on 01/07/2025 Nystatin 929574 UNIT/GM External Cream Apply topically to affected [...] Kit 01/14/2025 8:27 AM EDT 5 Active documented as of this encounter (statuses as of 01/17/2025) Active Problems Problem Noted Date Diagnosed Date [...] have staff contact office to notify of [facility] recommendation, possibly consider d.c maxzide [...] (08/08/2024 3:17 PM EDT): Follows with [facility] hematology Routine labs monitored by hem/onc Labs pending today Iron infusion 08/02 Blood transfusion 08/05 Assessment & Plan (07/15/2024 6:05 PM EDT): Follows with [facility] hematology Routine labs monitored by hem/onc Update CBC next week Assessment & Plan (03/13/2024 11:24 AM EDT): Follows with [facility] hematology Routine labs monitored by hem/onc Update CBC tomorrow PRBC transfusions 01/2024, 02/2024 Assessment & Plan (10/17/2023 9:43 AM EST): Followed closely by [facility] hematology. No identified cause of HUNTER. Weekly labs monitored by hem/onc. Most recent hgb 8.7 Assessment & Plan (05/02/2023 1:04 PM EDT): Followed closely by [facility] hematology. [...] (09/01/2024): Follows with Dr Shannon Zhang in [place] via telemed for PD Assessment & Plan [...] knees 03/21/2018 Coronary artery disease invo lving [place] coronary artery of [place] heart without angina pectoris 03/21/2018 Assessment & [...] as of this encounter (statuses as of 01/17/2025) Resolved Problems Problem Noted Date Diagnosed Date [...] scanned document from 11/13/[address] [facility]. 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 Radha Corcoran RN [facility] Intake [phone] * Telephone Encounter - Regina Tobar LPN - 01/17/2025 11:09 AM EDT Reinforced the need to take all medications as directed patient verbalized understanding spouse trying to make him compliant * Telephone Encounter - Andreia Ch CRNP - 01/17/2025 10:54 AM EDT Reviewed last Cardiology encounter. Has known CAD, HFpEF, valvular heart disease, and PAF. He is onseveral cardiac medications that will help lower his blood pressure including Jardiance, metoprololsuccinate, spironolactone, and torsemide. I would ensure he is compliant with all of these medications to prevent heart failure exacerbations and uncontrolled afib. Thank you, HALLIE Schmidt [facility], [place] [address] * Telephone Encounter - Regina Tobar LPN - 01/17/2025 10:38 AM EDT Images from the original note were not included. [facility] Remote Patient Monitoring Unable to contact patient: Trigger type: Abnormal reading(s): Device(s) Triggered: Current Health: Plan: Route to RNCM (Registered Nurse Cuff Folder) in care team Route to Advanced Practitioner in care team Spoke to spouse and states he will not take his medications last day for BP medications was 01/15 patient got on the phone and I instructed needs to take his metoprolol succinate 50mg as directed as well as other medications He states ok ill take it spouse states he has been very stubborn with medications lately While I was on phone the spouse gave the medications and he took them she will recheck BP in hour and call us back with update Denies any issues of headaches SOB chest pain palpitations or vision changes at this time Routing to care team Spouse states has appt on 01/22 RNCM maybe she can reinforce the need to adhere to taking medicationsas directed documented in this encounter Plan of Treatment Upcoming Encounters Date Type Department Care Team (Late st Contact Info) Description 01/22/2025 1:30 PM EDT [facility], [facility] [address] [place] [address] Peggy De, RN [address] [place] [address] 03/12/2025 3:30 PM EDT Home Visit Care at Home [address] [place] [address] Betina Jacob PA-C [address] [place] [facility] [address] 03/18/2025 11:15 AM EDT Office Visit Urology, [facility] [address] [place] [phone] Kalpesh Funes MD [address] [place] [address] 04/08/2025 7:05 AM EDT Laboratory Lab Mobile Phlebotomy [address] [place] [address] [facility] Mobile Home Draw [facility] [place] [address] Health Maintenance Due Date Last Done Comments Alpha-1 Antitrypsin 1962 Diabetic Foot Exam 03/27/2021 03/27/2020, 08/23/2018 Diabetic Eye Exam 11/01/2023 11/01/2022, , 11/01/2022, Additional history exists Albumin/Creatinine Ratio 12/27/2023 023, 03/08/2019, 04/09/2014 HbA1c 11/23/2024 05/23/2024, 03/24, 12/26/2022, Additional history exists CKD PHOS USE SMARTSET 32534 12/07/202411/23, 12/26/2022, 06/21/2021 Adult Wellness Visit 03/06/2025 03/06/2024, 11/02/19 23 O2 ASSESSMENT COMPLETED IN PAST YEAR FOR COPD 04/12/2025 04/12/2024 GFR 07/05/2025 01/02/2025, 10/25, 11/07/2024, Additional history exists Depression Screening 08/06/2025 08/06/2024 CKD HGB USE SMARTSET 85983 01/02/202601/02, 01/02/2025, 11/21/2024, Additional history exists DTap/Tdap [...] this encounter Medical Devices Implanted Type Area Vp Analytics Device Identifier Shelf Expiration Date Model / Serial / Lot Lens Intraoc 22.5 - [id number] - [id number] Implanted:Qty: 1 on 05/22/2018 by Jasbir Maurer MD at [facility] Right: Eye BAUSCH & LOMB 11/22/2022 [id number] / [id number] / [id number] Lens Intraoc 21.0 - [id number] - [id number] Implanted:Qty: 1 on 06/05/2018 by Jasbir Maurer MD at OR [facility] Left: Eye BAUSCH & LOMB 12/20/2022 [id number] / [id number] / Duraclip 16mm Xlg Repostn - [id number] Implanted:Qty: 1 on 04/12/2024 by [facility] [employer] [id number] 12/08/2024 [id number] / / [id number] Duraclip 16mm Xlg Repostn - [id number] Implanted:Qty: 1 on 04/12/2024 by Edilberto Lujan MD [facility] [employer] [id number] 12/08/2024 [id number] / / [id number] Duraclip 16mm Xlg Repostn - [id number] Implanted:Qty: 1 on 04/12/2024 by Edilberto Lujan MD [facility] [employer] [id number] 12/08/2024 [id number] / / [id number] documented as of this encounter Advance Directives [...] patient or by statute hierarchy) Care Teams Well Servicing Rig Operator Relationship Specialty Start Date End Date Michael Hinton MD [address] [place] [address] PCP - General Family Medicine 08/07/17 documented as of this encounter
--- OUTSIDE RECORDS SUMMARY | 2025-03-05 02:15 | External Medical Summary | Summary of Care ---
Author Name Unknown Organization [facility] Address [address] [place] [address] Phone [phone] Care Team Providers Care Stores Clerk Name Role Phone Michael Hinton MD Primary Care Provider [phone] [phone] Reason for Visit * Reason Onset Date Comments [facility]: Maintenance 01/17/2025 Encounter Details Date Type Department Care Team (Late st Contact Info) Description 01/17/2025 Telephone [facility], [address] [address] Regina Tobar, PLUSH CUTTER [address] [place] [address] [facility]: Maintenance Allergies Active Allergy Reactions Criticality Noted Date Comments Fabiano Inhibitors Cough 06/09/2017 Carbidopa High 08/30/2024 Other Reaction(s): constipation Carbidopa W-Levodopa 03/17/2021 Constipation Levodopa High 08/30/2024 Other Reaction(s): constipation Nsaids Rash 05/17/2018 Contraindicated per specialized developer documented as of this encounter (statuses as [...] mitral valve regurgitation,Co ronary artery disease involving [place] coronary artery of [place] heart without angina pectoris,Stage 3b chronic kidney [...] daily . PLEASE SCHEDULE FOLLOW UP APPOINTMENT. [phone] Capsule 1 12/11/2024 10:05 AM EST 5 Active Chlorhexidine Gluconate 0.12 % Mouth/Throat Solution (Peridex) Swish and spit 15 mL in the morning and 15 mL before bedtime. 473 mL 5 5 Active Additional Information Patient not taking.Reported on 01/07/2025 Nystatin 353354 UNIT/GM External Cream Apply topically to affected [...] have staff contact office to notify of [facility] recommendation, possibly consider d.c maxzide [...] Plan (08/08/2024 3:17 PM EDT): Follows with [facility] hematology Routine labs monitored by hem/onc Labs pending today Iron infusion 08/02 Blood transfusion 08/05 Assessment & Plan (07/15/2024 6:05 PM EDT): Follows with [facility] hematology Routine labs monitored by hem/onc Update CBC next week Assessment & Plan (03/13/2024 11:24 AM EDT): Follows with [facility] hematology Routine labs monitored by hem/onc Update CBC tomorrow PRBC transfusions 01/2024, 02/2024 Assessment & Plan (10/17/2023 9:43 AM EST): Followed closely by [facility] hematology. No identified cause of HUNTER. Weekly labs monitored by hem/onc. Most recent hgb 8.7 Assessment & Plan (05/02/2023 1:04 PM EDT): Followed closely by [facility] hematology. No identified cause of HUNTER. [...] (09/01/2024): Follows with Dr Shannon Zhang in [place] via telemed for PD Assessment & Plan [...] knees 03/21/2018 Coronary artery disease invo lving [place] coronary artery of [place] heart without angina pectoris 03/21/2018 Assessment & [...] scanned document from 11/13/[address] [facility] [place]. 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 Radha Corcoran RN [facility] Intake [phone] * Telephone Encounter - Regina Tobar LPN [...] Thank you, HALLIE Schmidt [facility], [place] [address] * Telephone Encounter - Regina Tobar LPN - 01/17/2025 10:38 AM EDT Images from the original note were not included. [facility] Remote Patient Monitoring Unable to contact patient: Trigger type: Abnormal reading(s): Device(s) Triggered: Current Health: Plan: Route to RNCM (Registered Nurse Fire Alarm Dispatcher) in care team Route to Advanced Practitioner [...] PM EDT [facility] Visit [facility], [facility] [address] [address] Peggy De, RN [address] [place] [address] 03/12/2025 3:30 PM EDT Home Visit Care at Home [address] [place] [address] Betina Jacob PA-C [address] [place] [address] 03/18/2025 11:15 AM EDT Office Visit Urology, [facility] [address] [place] [phone] Kalpesh Funes MD [address] [place] [address] 04/08/2025 7:05 AM EDT Laboratory Lab Mobile Phlebotomy [address] [place] [address] [facility] Mobile Home Draw [facility] [place] [address] Health Maintenance Due Date Last Done Comments Alpha-1 Antitrypsin 1963 Diabetic Foot Exam 03/27/2021 03/27/2020, 08/23/2018 Diabetic Eye Exam 11/01/2023 11/01/2022, , 11/01/2022, Additional history exists Albumin/Creatinine Ratio 12/27/2023 023, 03/08/2019, 04/09/2014 HbA1c 11/23/2024 05/23/2024, 03/24, 12/26/2022, Additional history exists CKD PHOS USE SMARTSET 46966 12/07/202411/23, 12/26/2022, 06/21/2021 Adult Wellness Visit 03/06/2025 03/06/2024, 11/02/19 23 O2 ASSESSMENT COMPLETED IN PAST YEAR FOR COPD 04/12/2025 04/12/2024 GFR 07/05/2025 01/02/2025, 10/25, 11/07/2024, Additional history exists Depression Screening 08/06/2025 08/06/2024 CKD HGB USE SMARTSET 77731 01/02/202601/02, 01/02/2025, 11/21/2024, Additional history exists DTap/Tdap [...] this encounter Medical Devices Implanted Type Area Database Design Analyst Device Identifier Shelf Expiration Date Model / Serial / Lot Lens Intraoc 22.5 - [id number] - [id number] Implanted:Qty: 1 on 05/22/2018 by Jasbir Maurer MD at [facility] Right: Eye BAUSCH & LOMB 11/22/2022 [id number] / [id number] / [id number] Lens Intraoc 21.0 - [id number] - [id number] Implanted:Qty: 1 on 06/05/2018 by Jasbir Maurer MD at OR [facility] Left: Eye BAUSCH & LOMB 12/20/2022 [id number] / [id number] / Duraclip 16mm Xlg Repostn - [id number] Implanted:Qty: 1 on 04/12/2024 by Edilberto Lujan MD at OR [facility] [employer]MED [employer]ACHO [id number] 12/08/2024 [id number] / / [id number] Duraclip 16mm Xlg Repostn - [id number] Implanted:Qty: 1 on 04/12/2024 by Edilberto Lujan MD at OR [facility] [employer] [id number] 12/08/2024 [id number] / / [id number] Duraclip 16mm Xlg Repostn - [id number] Implanted:Qty: 1 on 04/12/2024 by Edilberto Lujan MD at OR [facility] [employer] [id number] 12/08/2024 [id number] / / [id number] documented as of this encounter Advance Directives [...] patient or by statute hierarchy) Care Teams Stores Clerk Relationship Specialty Start Date End Date Michael Hinton MD [address] [place] [address] PCP - General Family Medicine 08/07/17 documented as of this encounter
--- OUTSIDE RECORDS SUMMARY | 2025-03-05 02:15 | External Medical Summary | Summary of Care ---
Author Name Unknown Organization [facility] Address [address] [place] [address] Phone [phone] Care Team Providers Care Occupational Therapy Asst Name Role Phone Michael Hinton MD Primary Care Provider +1 [phone] Reason for Visit * Reason Onset Date Comments [facility]: Maintenance 01/17/2025 Encounter Details Date Type Department Care Team (Late st Contact Info) Description 01/17/2025 Telephone [facility], [address] [address] Regina Tobar, HOME HEALTH CARE RESPIRATORY THERAPIST [address] [place] [address] [facility]: Maintenance Allergies Active Allergy Reactions Criticality Noted Date Comments Fabiano Inhibitors Cough 06/09/2017 Carbidopa High 08/30/2024 Other Reaction(s): constipation Carbidopa W-Levodopa 03/17/2021 Constipation Levodopa High 08/30/2024 Other Reaction(s): constipation Nsaids Rash 05/17/2018 Contraindicated per escrow closer documented as of this encounter (statuses as [...] mitral valve regurgitation,Co ronary artery disease involving [place] coronary artery of [place] heart without angina pectoris,Stage 3b chronic kidney [...] daily . PLEASE SCHEDULE FOLLOW UP APPOINTMENT. [phone] Capsule 1 12/11/2024 10:05 AM EST 5 Active Chlorhexidine Gluconate 0.12 % Mouth/Throat Solution (Peridex) Swish and spit 15 mL in the morning and 15 mL before bedtime. 473 mL 5 5 Active Additional Information Patient not taking.Reported on 01/07/2025 Nystatin 656647 UNIT/GM External Cream Apply topically to affected [...] have staff contact office to notify of [facility] recommendation, possibly consider d.c maxzide [...] Plan (08/08/2024 3:17 PM EDT): Follows with [facility] hematology Routine labs monitored by hem/onc Labs pending today Iron infusion 08/02 Blood transfusion 08/05 Assessment & Plan (07/15/2024 6:05 PM EDT): Follows with [facility] hematology Routine labs monitored by hem/onc Update CBC next week Assessment & Plan (03/13/2024 11:24 AM EDT): Follows with [facility] hematology Routine labs monitored by hem/onc Update CBC tomorrow PRBC transfusions 01/2024, 02/2024 Assessment & Plan (10/17/2023 9:43 AM EST): Followed closely by [facility] hematology. No identified cause of HUNTER. Weekly labs monitored by hem/onc. Most recent hgb 8.7 Assessment & Plan (05/02/2023 1:04 PM EDT): Followed closely by [facility] hematology. No identified cause of [...] (09/01/2024): Follows with Dr Shannon Zhang in [place] via telemed for PD Assessment & Plan [...] knees 03/21/2018 Coronary artery disease invo lving [place] coronary artery of [place] heart without angina pectoris 03/21/2018 Assessment & [...] scanned document from 11/13/[address] [facility] [place]. 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 Radha Corcoran RN [facility] Intake [phone] * Telephone Encounter - Regina Tobar LPN [...] Thank you, HALLIE Schmidt [facility], [place] [address] * Telephone Encounter - Regina Tobar LPN - 01/17/2025 10:38 AM EDT Images from the original note were not included. [facility] Remote Patient Monitoring Unable to contact patient: Trigger type: Abnormal reading(s): Device(s) Triggered: Current Health: Plan: Route to RNCM (Registered Nurse Musical Instrument Maker) in care team Route to Advanced Practitioner [...] EDT Home Visit [facility], [facility] [address] [address] Peggy De, RN [address] [place] [address] 03/12/2025 3:30 PM EDT Home Visit Care at Home [address] [place] [facility] [place] [address] Betina Jacob PA-C [address] [place] [facility] [place] [address] 03/18/2025 11:15 AM EDT Office Visit Urology, [facility] [address] [phone] aKlpesh Funes MD [address] [place] [address] 04/08/2025 7:05 AM EDT Laboratory Lab Mobile Phlebotomy [address] [place] [address] [facility] Mobile Home Draw [facility] [place] [address] Health Maintenance Due Date Last Done Comments Alpha-1 Antitrypsin 1963 Diabetic Foot Exam 03/27/2021 03/27/2020, 08/23/2018 Diabetic Eye Exam 11/01/2023 11/01/2022, , 11/01/2022, Additional history exists Albumin/Creatinine Ratio 12/27/2023 023, 03/08/2019, 04/09/2014 HbA1c 11/23/2024 05/23/2024, 03/24, 12/26/2022, Additional history exists CKD PHOS USE SMARTSET 38902 12/07/202411/23, 12/26/2022, 06/21/2021 Adult Wellness Visit 03/06/2025 03/06/2024, 11/02/19 23 O2 ASSESSMENT COMPLETED IN PAST YEAR FOR COPD 04/12/2025 04/12/2024 GFR 07/05/2025 01/02/2025, 10/25, 11/07/2024, Additional history exists Depression Screening 08/06/2025 08/06/2024 CKD HGB USE SMARTSET 77309 01/02/202601/02, 01/02/2025, 11/21/2024, Additional history exists DTap/Tdap [...] this encounter Medical Devices Implanted Type Area Tempering Machine Operator Device Identifier Shelf Expiration Date Model / Serial / Lot Lens Intraoc 22.5 - [id number] - [id number] Implanted:Qty: 1 on 05/22/2018 by Jasbir Maurer MD at [facility] Right: Eye BAUSCH & LOMB 11/22/2022 [id number] / [id number] / [id number] Lens Intraoc 21.0 - [id number] - [id number] Implanted:Qty: 1 on 06/05/2018 by Jasbir Maurer MD at OR [facility] Left: Eye BAUSCH & LOMB 12/20/2022 [id number] / [id number] / Duraclip 16mm Xlg Repostn - [id number] Implanted:Qty: 1 on 04/12/2024 by Edilberto Lujan MD at OR [facility] [employer] [id number] 12/08/2024 [id number] / / [id number] Duraclip 16mm Xlg Repostn - [id number] Implanted:Qty: 1 on 04/12/2024 by Edilberto Lujan MD at OR [facility] [employer] [id number] 12/08/2024 [id number] / / [id number] Duraclip 16mm Xlg Repostn - [id number] Implanted:Qty: 1 on 04/12/2024 by Edilberto Lujan MD at OR [facility] [employer] [id number] 12/08/2024 [id number] / / [id number] documented as of this encounter Advance Directives [...] patient or by statute hierarchy) Care Teams Occupational Therapy Asst Relationship Specialty Start Date End Date Michael Hinton MD [address] [address] PCP - General Family Medicine 08/07/17 documented as of this encounter
--- OUTSIDE RECORDS SUMMARY | 2025-03-05 02:15 | External Medical Summary | Summary of Care ---
Author Name Unknown Organization [facility] Address [address] [place] [address] Phone [phone] Care Team Providers Care Teller Vault Name Role Phone Michael Hinton MD Primary Care Provider +1 [phone] Reason for Visit * Reason Onset Date Comments [facility]: Maintenance 01/17/2025 Encounter Details Date Type Department Care Team (Late st Contact Info) Description 01/17/2025 Telephone [facility], [address] [address] Regina Tobar, ELECTRICAL ASSEMBLIES SUPERVISOR [address] [place] [address] [facility]: Maintenance Allergies Active Allergy Reactions Criticality Noted Date Comments Fabiano Inhibitors Cough 06/09/2017 Carbidopa High 08/30/2024 Other Reaction(s): constipation Carbidopa W-Levodopa 03/17/2021 Constipation Levodopa High 08/30/2024 Other Reaction(s): constipation Nsaids Rash 05/17/2018 Contraindicated per diesel pile driver operator documented as of this encounter (statuses [...] mitral valve regurgitation,Co ronary artery disease involving [place] coronary artery of [place] heart without angina pectoris,Stage 3b chronic kidney [...] daily . PLEASE SCHEDULE FOLLOW UP APPOINTMENT. [phone] Capsule 1 12/11/2024 10:05 AM EST 5 Active Chlorhexidine Gluconate 0.12 % Mouth/Throat Solution (Peridex) Swish and spit 15 mL in the morning and 15 mL before bedtime. 473 mL 5 5 Active Additional Information Patient not taking.Reported on 01/07/2025 Nystatin 236335 UNIT/GM External Cream Apply topically to affected [...] staff contact office to notify of [facility] recommendation, possibly consider d.c maxzide and [...] (09/01/2024): Follows with Dr Shannon Zhang in [place] via telemed for PD Assessment & Plan [...] knees 03/21/2018 Coronary artery disease invo lving [place] coronary artery of [place] heart without angina pectoris 03/21/2018 Assessment & [...] from 11/13/[address] bains [facility] [place]. 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 Radha Corcoran RN [facility] Intake [phone] * Telephone Encounter - Regina Tobar LPN [...] Thank you, HALLIE Schmidt [facility], [place] [address] * Telephone Encounter - Regina Tobar LPN - 01/17/2025 10:38 AM EDT Images from the original note were not included. [facility] Remote Patient Monitoring Unable to contact patient: Trigger type: Abnormal reading(s): Device(s) Triggered: Current Health: Plan: Route to RNCM (Registered Nurse Switchboard Wirer) in care team Route to Advanced Practitioner [...] PM EDT Home Visit [facility], [facility] [address] [address] Peggy De, RN [address] [place] [address] 03/12/2025 3:30 PM EDT Home Visit Care at Home [address] [place] [address] Betina Jacob PA-C [address] [place] [facility] [place] [address] 03/18/2025 11:15 AM EDT Office Visit Urology, [facility] [address] [place] [phone] Kalpesh Funes MD [address] [address] 04/08/2025 7:05 AM EDT Laboratory Lab Mobile Phlebotomy [address] [place] [address] [facility] Mobile Home Draw [facility] [place] [address] Health Maintenance Due Date Last Done Comments Alpha-1 Antitrypsin 1963 Diabetic Foot Exam 03/27/2021 03/27/2020, 08/23/2018 Diabetic Eye Exam 11/01/2023 11/01/2022, , 11/01/2022, Additional history exists Albumin/Creatinine Ratio 12/27/2023 023, 03/08/2019, 04/09/2014 HbA1c 11/23/2024 05/23/2024, 03/24, 12/26/2022, Additional history exists CKD PHOS USE SMARTSET 73133 12/07/202411/23, 12/26/2022, 06/21/2021 Adult Wellness Visit 03/06/2025 03/06/2024, 11/02/19 23 O2 ASSESSMENT COMPLETED IN PAST YEAR FOR COPD 04/12/2025 04/12/2024 GFR 07/05/2025 01/02/2025, 10/25, 11/07/2024, Additional history exists Depression Screening 08/06/2025 08/06/2024 CKD HGB USE SMARTSET 10868 01/02/202601/02, 01/02/2025, 11/21/2024, Additional history exists DTap/Tdap [...] this encounter Medical Devices Implanted Type Area Chlorine Cell Tender Device Identifier Shelf Expiration Date Model / Serial / Lot Lens Intraoc 22.5 - [id number] - [id number] Implanted:Qty: 1 on 05/22/2018 by Jasbir Maurer MD at [facility] Right: Eye BAUSCH & LOMB 11/22/2022 [id number] / [id number] / [id number] Lens Intraoc 21.0 - [id number] - [id number] Implanted:Qty: 1 on 06/05/2018 by Jasbir Maurer MD at OR [facility] Left: Eye BAUSCH & LOMB 12/20/2022 [id number] / [id number] / Duraclip 16mm Xlg Repostn - [id number] Implanted:Qty: 1 on 04/12/2024 by Edilberto Lujan MD at OR [facility] [employer] [id number] 12/08/2024 [id number] / / [id number] Duraclip 16mm Xlg Repostn - [id number] Implanted:Qty: 1 on 04/12/2024 by Edilberto Lujan MD at OR [facility] [employer] [id number] 12/08/2024 [id number] / / [id number] Duraclip 16mm Xlg Repostn - [id number] Implanted:Qty: 1 on 04/12/2024 by Edilberto Lujan MD at OR [facility] [employer] [id number] 12/08/2024 [id number] / / [id number] documented as of this encounter Advance Directives [...] patient or by statute hierarchy) Care Teams Teller Vault Relationship Specialty Start Date End Date Michael Hinton MD [address] [address] PCP - General Family Medicine 08/07/17 documented as of this encounter
--- OUTSIDE RECORDS SUMMARY | 2025-03-05 02:16 | External Medical Summary | Summary of Care ---
Author Name Unknown Organization [facility] Address [address] [place] [address] Phone [phone] Care Team Providers Care Customer Agent Name Role Phone Michael Hinton MD Primary Care Provider [phone] Reason for Visit * Reason Onset Date Comments Med Request 01/10/2025 Encounter Details Date Type Department Care Team (Late st Contact Info) Description 01/10/2025 Telephone Family Practice [facility] [address] [facility] [place] [address] Michael Hinton MD [address] [facility] [place] [address] Med Request Allergies Active Allergy Reactions Criticality Noted Date Comments Fabiano Inhibitors Cough 06/09/2017 Carbidopa High 08/30/2024 Other Reaction(s): constipation Carbidopa W-Levodopa 03/17/2021 Constipation Levodopa High 08/30/2024 Other Reaction(s): constipation Nsaids Rash 05/17/2018 Contraindicated per confectionery maker documented as of this encounter (statuses as of 01/10/2025) Medications DIURETIC TITRATION PLAN If no improvement [...] 11/07/2023 10:13 AM EST 11/06/19 24 Active Escitalopram Oxalate 20 MG Oral Tablet (Lexapro) take one tablet by mouth daily in the morning 90 Tablet 3 11/01/2024 8:54 AM EST 02/09/20 24 Active Allopurinol 300 MG Oral Tablet [...] 90 Capsule 3 10/17/2024 5:00 PM EST 09/17/20 24 Active Atorvastatin Calcium 40 MG [...] 90 Tablet 1 10/22/2024 4:39 PM EST 10/21/20 24 Active Torsemide 20 MG Oral Tablet (Demadex)Indicat ions:Paroxysmal atrial fibrillation (HCC),Nonrheumat ic mitral valve regurgitation,Co ronary artery disease involving telida coronary artery of telida heart without angina pectoris,Stage 3b chronic kidney [...] daily . PLEASE SCHEDULE FOLLOW UP APPOINTMENT. [phone] 90 Capsule 1 12/11/2024 10:05 AM EST 12/09/19 25 Active Chlorhexidine Gluconate 0.12 % Mouth/Throat Solution (Peridex) Swish and spit 15 mL in the morning and 15 mL before bedtime. 473 mL 5 12/17/19 25 Active Additional Information Patient not taking.Reported on 01/07/2025 Nystatin 261854 UNIT/GM External Cream Apply topically to affected area 2 times a day. To affacted area for two weeks. 30 g 2 12/17/19 25 Active OneTouch Delica Lancets 33GIndications:T ype 2 diabetes mellitus with hemoglobin A1c goal of less than 8.0% ([facility]) Use up to 4 times a day 400 Each 3 01/11/20 25 Active OneTouch Verio In Vitro Strip (Glucose Blood)Indication s:Type 2 diabetes mellitus with hemoglobin A1c goal of less than 8.0% (HCC) Use up to 4 times a day E11.9 400 Strip 3 01/11/20 25 Active D-Care Glucometer w/Device KitIndications:T ype 2 diabetes mellitus with hemoglobin A1c goal of less than 8.0% (HCC) Use as directed. 1 Kit 01/11/20 25 Active Magic Swizzle (Lidocaine-Benad ryl-Maalox) oral solution Swish and spit 15 mL 2 times a day as needed (oral sores or pain). 300 mL 1 01/08/20 25 025 Discontin ued(Refil l) OneTouch Verio In Vitro Strip (Glucose Blood)Indication s:Type 2 diabetes mellitus with hemoglobin A1c goal of less than 8.0% (HCC) Use up to 4 times a day E11.9 400 Strip 3 01/09/20 25 025 Discontin ued(Refil l) OneTouch Delica Lancets 33GIndications:T ype 2 diabetes mellitus with hemoglobin A1c goal of less than 8.0% (HCC) Use up to 4 times a day 400 Each 3 01/09/20 25 025 Discontin ued(Refil l) D-Care Glucometer w/Device Kit Use as directed. 1 Kit 01/09/20 25 025 Discontin ued(Refil l) documented as of this encounter (statuses as of 01/10/2025) Active Problems Problem Noted Date Diagnosed Date [...] have staff contact office to notify of [facility] recommendation, possibly consider d.c maxzide [...] Plan (08/08/2024 3:17 PM EDT): Follows with [facility] hematology Routine labs monitored by hem/onc Labs pending today Iron infusion 08/02 Blood transfusion 08/05 Assessment & Plan (07/15/2024 6:05 PM EDT): Follows with [facility] hematology Routine labs monitored by hem/onc Update CBC next week Assessment & Plan (03/13/2024 11:24 AM EDT): Follows with [facility] hematology Routine labs monitored by hem/onc Update CBC tomorrow PRBC transfusions 01/2024, 02/2024 Assessment & Plan (10/17/2023 9:43 AM EST): Followed closely by [facility] hematology. No identified cause of HUNTER. Weekly labs monitored by hem/onc. Most recent hgb 8.7 Assessment & Plan (05/02/2023 1:04 PM EDT): Followed closely by [facility] hematology. No identified cause of HUNTER. Weekly labs monitored by hem/onc. Most recent hgb stable 10.5. Assessment & Plan (03/28/2023 1:27 PM EDT): Received blood transfusion 03/24 -will follow-up CBC on 03/30 -continue ferrous sulfate. Dose once daily. Med list updated Assessment & Plan (10/19/2022 1:20 PM EST): Followed by hem/onc. Had severe anemia in Aug with drop to 4.3. [facility] now monitoring counts weekly. Pt [...] (09/01/2024): Follows with Dr Shannon Zhang in [place] via telemed for PD Assessment & Plan (09/01/2024 7:15 PM EST): Continue aricept and amantadine Family assists with 24/ care Assessment & Plan (08/08/2024 3:14 PM [...] of telida heart without angina pectoris 03/21/2018 Assessment & [...] as of this encounter (statuses as of 01/10/2025) Resolved Problems Problem Noted Date Diagnosed Date [...] as of this encounter (statuses as of 01/10/2025) Immunizations Name Administration Dates Next Due COVID-19 mRNA, LNP-s, No Pre serve, 2-Dose Series (PrivacyProtector) 11/03/2021,12/19/2020,11/28/2020 Covid-19 Ad26, Single Dose (Job1001/J&J) 12/19/2020,11/28/2020 DTaP Dipth/Tet/Acell Pertussis (Infanrix), Peds 10/24/2019 [...] No 03/07/2024 Does the household have a select specialty hospitalr source of income? 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 [facility] Caroline Gant PharmD Clinical Pharmacist [facility] ([facility]) [phone] 01/10/2025 9:25 AM * Telephone Encounter - Lata Villalobos, laborer electroplating - 01/10/2025 9:21 AM EDT Please reroute Rx to [facility]. Pending Prescriptions: Disp Refills OneTouch Delica Lancets 33G 400 Ea*3 Sig: Use up to 4 times a day OneTouch Verio In Vitro Strip (Glucose Bl*400 St*3 Sig: Use up to 4 times a day E11.9 D-Care Glucometer w/Device Kit 1 Kit 0 Sig: Use as directed. Last Visit: 12/17/2024 (in office), 08/19/2024 (telemedicine) Visit date not found If no future appointments scheduled, and last appointment is greater than a year ago, please schedule patient for a follow-up appointment Last date the medication was ordered: 01/08/2025 Patient Phone Numbers Labs: Lab Results Component Value Date/Time CREAT 2.0 (H) 01/02/2025 09:45 AM CREAT 1.93 (A) 05/04/2022 12:00 AM CREAT 0.89 01/28/2021 06:05 AM CREAT 1.5 (H) 08/31/2020 08:06 AM POTASSIUM 4.1 01/02/2025 09:45 AM POTASSIUM 3.0 (A) 05/04/2022 12:00 AM POTASSIUM 3.7 01/28/2021 06:05 AM POTASSIUM 3.8 07/15/2020 11:50 AM TSH 4.24 (H) 12/12/2022 11:43 AM TSH 0.957 09/01/2018 12:00 AM TSH 2.74 04/18/2016 08:24 AM LDL 69 01/18/2024 10:26 AM LDL 88 09/09/2019 07:46 AM LDL NOT APPLICABLE 09/09/2019 07:46 AM ALT 17 01/02/2025 09:45 AM ALT 23 07/15/2020 11:50 AM HGBA1C 8.3 (H) 05/23/2024 10:43 AM HGBA1C 6.3 (H) 03/18/2020 07:00 AM Thank you, Lata Villalobos Payroll Services Analyst I [facility] ([facility]) 01/10/2025,9:21 AM documented in this encounter Plan of Treatment Upcoming Encounters Date Type Department Care Team (Late st Contact Info) Description 01/22/2025 1:30 PM EDT [facility] Visit [facility], [facility] [address] [place] [address] Peggy De RN [address] [place] [address] 03/12/2025 3:30 PM EDT Home Visit Care at Home [address] [place] [facility] [place] [address] Betina Jacob PA-C [address] [place] [address] 03/18/2025 11:15 AM EDT Office Visit Urology, [facility] [address] [place] [phone] Kalpesh Funes MD [address] [place] [address] 04/08/2025 7:05 AM EDT Laboratory Lab Mobile Phlebot[facility] [place] [address] [place] [address] [facility] Mobile Home Draw [address] [facility] [place] [address] Health Maintenance Due Date Last Done Comments Alpha-1 Antitrypsin 1963 Diabetic Foot Exam 03/27/2021 03/27/2020, 08/23/2018 Diabetic Eye Exam 11/01/2023 11/01/2022, , 11/01/2022, Additional history exists Albumin/Creatinine Ratio 12/27/2023 023, 03/08/2019, 04/09/2014 HbA1c 11/23/2024 05/23/2024, 03/24, 12/26/2022, Additional history exists CKD PHOS USE SMARTSET 17839 12/07/202411/23, 12/26/2022, 06/21/2021 Adult Wellness Visit 03/06/2025 03/06/2024, 11/02/19 23 O2 ASSESSMENT COMPLETED IN PAST YEAR FOR COPD 04/12/2025 04/12/2024 GFR 07/05/2025 01/02/2025, 10/25, 11/07/2024, Additional history exists Depression Screening 08/06/2025 08/06/2024 CKD HGB USE SMARTSET 91657 01/02/202601/02, 01/02/2025, 11/21/2024, Additional history exists DTap/Tdap [...] this encounter Medical Devices Implanted Type Area Bi Consultant Device Identifier Shelf Expiration Date Model / Serial / Lot Lens Intraoc 22.5 - [id number] - [id number] Implanted:Qty: 1 on 05/22/2018 by Jasbir Maurer MD at OR [facility] Right: Eye BAUSCH & LOMB 11/22/2022 [id number] / [id number] / [id number] Lens Intraoc 21.0 - [id number] - [id number] Implanted:Qty: 1 on 06/05/2018 by Jasbir Maurer MD at OR [facility] Left: Eye BAUSCH & LOMB 12/20/2022 [id number] / [id number] / Duraclip 16mm Xlg Repostn - [id number] Implanted:Qty: 1 on 04/12/2024 by Edilberto Lujan MD at OR [facility] [employer] [id number] 12/08/2024 [id number] / / [id number] Duraclip 16mm Xlg Repostn - [id number] Implanted:Qty: 1 on 04/12/2024 by Edilberto Lujan MD at OR [facility] [employer] [id number] 12/08/2024 [id number] / / [id number] Duraclip 16mm Xlg Repostn - [id number] Implanted:Qty: 1 on 04/12/2024 by Edilberto Lujan MD at OR [facility] [employer] [id number] 12/08/2024 [id number] / / [id number] documented as of this encounter Visit Diagnoses [...] unspecified whether terminal operations supervisor insulin use (HCC) Coronary artery disease involving telida coronary artery of telida heart without angina pectoris Hypertensive heart and [...] mitral valve regurgitation Coronary artery disease involving telida coronary artery of telida heart without angina pectoris Paroxysmal atrial fibrillation [...] mitral valve regurgitation Coronary artery disease involving telida coronary artery of telida heart without angina pectoris Stage 3b chronic [...] infection Acute apical periodontitis of pulpal origin Type 2 diabetes mellitus with hemoglobin A1c goal of less than 8.0% ([facility]) documented in this encounter Advance Directives * [...] patient or by statute hierarchy) Care Teams Customer Agent Relationship Specialty Start Date End Date Michael Hinton MD [address] [place] [address] PCP - General Family Medicine 08/07/17 documented as of this encounter
--- OUTSIDE RECORDS SUMMARY | 2025-03-05 02:16 | External Medical Summary | Summary of Care ---
Author Name Unknown Organization [facility] Address [address] [place] [address] Phone [phone] Care Team Providers Care Clinical Quality Assurance Associate Name Role Phone Michael Hinton MD Primary Care Provider [phone] Reason for Visit * Reason Onset Date Comments [facility]: Maintenance 01/09/2025 Encounter Details Date Type Department Care Team (Late st Contact Info) Description 01/09/2025 9:45 AM EDT Scheduled Telephone [facility], [facility] [address] [facility] [place] [place] [address] [facility], Nurse [employer] [address] [place] [address] Allergies Active Allergy Reactions Criticality Noted Date Comments Fabiano Inhibitors Cough 06/09/2017 Carbidopa High 08/30/2024 Other Reaction(s): constipation Carbidopa W-Levodopa 03/17/2021 Constipation Levodopa High 08/30/2024 Other Reaction(s): constipation Nsaids Rash 05/17/2018 Contraindicated per vp marketing services and skin documented as of this encounter (statuses as of 01/09/2025) Medications DIURETIC TITRATION PLAN If no improvement [...] mitral valve regurgitation,Co ronary artery disease involving united [place] coronary artery of [place] heart without angina pectoris,Stage 3b chronic kidney [...] daily . PLEASE SCHEDULE FOLLOW UP APPOINTMENT. [phone] 90 Capsule 1 12/11/2024 10:05 AM EST 5 Active Chlorhexidine Gluconate 0.12 % Mouth/Throat Solution (Peridex) Swish and spit 15 mL in the morning and 15 mL before bedtime. 473 mL 5 5 Active Additional Information Patient not taking.Reported on 01/07/2025 Nystatin 853785 UNIT/GM External Cream Apply topically to affected area 2 times a day. To affacted area for two weeks. 30 g 2 5 Active Magic Swizzle (Lidocaine-Benad ryl-Maalox) oral solution Swish and spit 15 mL 2 times a day as needed (oral sores or pain). 300 mL 1 5 Active OneTouch Verio In Vitro Strip (Glucose Blood)Indication s:Type 2 diabetes mellitus with hemoglobin A1c goal of less than 8.0% ([facility]) Use up to 4 times a day E11.9 400 Strip 3 5 Active OneTouch Delica Lancets 33GIndications:T ype 2 diabetes mellitus with hemoglobin A1c goal of less than 8.0% ([facility]) Use up to 4 times a day 400 Each 3 5 Active D-Care Glucometer w/Device Kit Use as directed. 1 Kit 5 Active documented as of this encounter (statuses as of 01/09/2025) Active Problems Problem Noted Date Diagnosed Date [...] up. Will recheck BNP and BMP on David with his other labs. Assessment & Plan [...] have staff contact office to notify of [facility] recommendation, possibly consider d.c maxzide [...] Followed by hem/onc. Had severe anemia in Nov with drop to 4.3. [facility] now monitoring counts weekly. Pt [...] (09/01/2024): Follows with Dr Shannon Zhang in [place] via telemed for PD Assessment & Plan [...] knees 03/21/2018 Coronary artery disease invo lving united [place] coronary artery of [place] heart without angina pectoris 03/21/2018 Assessment & [...] as of this encounter (statuses as of 01/09/2025) Resolved Problems Problem Noted Date Diagnosed Date [...] document from 11/13/[address] [place] [facility] 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 No answer left detailed VMM that glucometer/supplies were sent to [facility] documented in this encounter Plan of Treatment Upcoming Encounters Date Type Department Care Team (Late st Contact Info) Description 01/22/2025 1:30 PM EDT [facility] Visit [facility], [facility] [address] [place] [address] Peggy De, RN [address] [place] [address] 03/12/2025 3:30 PM EDT Home Visit [facility] at Home [address] [place], [place] [id number] Betina Jacob PA-C [address] [place] [address] 03/18/2025 11:15 AM EDT Office Visit Urology, [facility] [address] [place] [phone] Kalpesh Funes MD [address] [place] [address] 04/08/2025 7:05 AM EDT Laboratory Lab Mobile Phlebotomy [place] [email or web address] [place] [address] [place], [facility] Mobile Home Draw [email or web address] [place] [address] Health Maintenance Due Date Last Done Comments Alpha-1 Antitrypsin 1962 Diabetic Foot Exam 03/27/2021 03/27/2020, 08/23/2018 Diabetic Eye Exam 11/01/2023 11/01/2022, , 11/01/2022, Additional history exists Albumin/Creatinine Ratio 12/27/2023 023, 03/08/2019, 04/09/2014 HbA1c 11/23/2024 05/23/2024, 03/24, 12/26/2022, Additional history exists *NEPHROLOGY REFERRAL DUE TO RESISTANT HTN 12/01/2024 CKD PHOS USE SMARTSET 06333 12/07/202411/23, 12/26/2022, 06/21/2021 Adult Wellness Visit 03/06/2025 03/06/2024, 11/02/19 23 O2 ASSESSMENT COMPLETED IN PAST YEAR FOR COPD 04/12/2025 04/12/2024 GFR 07/05/2025 01/02/2025, 10/25, 11/07/2024, Additional history exists Depression Screening 08/06/2025 08/06/2024 CKD HGB USE SMARTSET 93115 01/02/202601/02, 01/02/2025, 11/21/2024, Additional history exists DTap/Tdap [...] this encounter Medical Devices Implanted Type Area Head Up Operator Helper Device Identifier Shelf Expiration Date Model / Serial / Lot Lens Intraoc 22.5 - [id number] - [id number] Implanted:Qty: 1 on 05/22/2018 by Jasbir Maurer MD at OR [facility] Right: Eye BAUSCH & LOMB 11/22/2022 [id number] / [id number] / [id number] Lens Intraoc 21.0 - [id number] - [id number] Implanted:Qty: 1 on 06/05/2018 by Jasbir Maurer MD at OR [facility] Left: Eye BAUSCH & LOMB 12/20/2022 [id number] / [id number] / Duraclip 16mm Xlg Repostn - [id number] Implanted:Qty: 1 on 04/12/2024 by Edilberto Lujan MD at OR [facility] Cl[employer]ACHO [id number] 12/08/2024 [id number] / / [id number] Duraclip 16mm Xlg Repostn - [id number] Implanted:Qty: 1 on 04/12/2024 by Edilberto Lujan MD at OR [facility] [employer] [id number] 12/08/2024 [id number] / / [id number] Duraclip 16mm Xlg Repostn - [id number] Implanted:Qty: 1 on 04/12/2024 by Edilberto Lujan MD at OR [facility] [employer] [id number] 12/08/2024 [id number] / / [id number] documented as of this encounter Advance Directives [...] patient or by statute hierarchy) Care Teams Clinical Quality Assurance Associate Relationship Specialty Start Date End Date Michael Hinton MD [address] [place] [address] PCP - General Family Medicine 08/07/17 documented as of this encounter
--- OUTSIDE RECORDS SUMMARY | 2025-03-05 02:16 | External Medical Summary | Summary of Care ---
Author Name Unknown Organization [facility] Address [address] [place] [address] Phone [phone] Care Team Providers Care Government Auditor Name Role Phone Michael Hinton MD Primary Care Provider [phone] Reason for Visit * Reason Onset Date Comments [facility]: Maintenance 01/09/2025 Encounter Details Date Type Department Care Team (Late st Contact Info) Description 01/09/2025 9:45 AM EDT Scheduled Telephone [facility], [facility] [address] [facility] [place] [address] [facility], Nurse [facility] [address] [place] [address] Allergies Active Allergy Reactions Criticality Noted Date Comments Fabiano Inhibitors Cough 06/09/2017 Carbidopa High 08/30/2024 Other Reaction(s): constipation Carbidopa W-Levodopa 03/17/2021 Constipation Levodopa High 08/30/2024 Other Reaction(s): constipation Nsaids Rash 05/17/2018 Contraindicated per pipe changer documented as of this encounter (statuses as [...] mitral valve regurgitation,Co ronary artery disease involving [place] coronary artery of [place] heart without angina pectoris,Stage 3b chronic kidney [...] daily . PLEASE SCHEDULE FOLLOW UP APPOINTMENT. [phone] Capsule 1 12/11/2024 10:05 AM EST 5 Active Chlorhexidine Gluconate 0.12 % Mouth/Throat Solution (Peridex) Swish and spit 15 mL in the morning and 15 mL before bedtime. 473 mL 5 5 Active Additional Information Patient not taking.Reported on 01/07/2025 Nystatin 842940 UNIT/GM External Cream Apply topically to affected [...] than 8.0% ([facility]) Use up to 4 times a day E11.9 400 Strip 3 5 Active OneTouch Delica Lancets 33GIndications:T ype 2 diabetes mellitus with hemoglobin A1c goal of less than 8.0% ([facility]) Use up to 4 times a day [...] have staff contact office to notify of [facility] recommendation, possibly consider d.c maxzide [...] anemia in Nov with drop to 4.3. [facility] now monitoring counts weekly. Pt [...] (09/01/2024): Follows with Dr Shannon Zhang in [place] via telemed for PD Assessment & Plan [...] of [place] heart without angina pectoris 03/21/2018 Assessment & [...] from 11/13/[address] bains, [facility]. 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 states that [facility]'s pharmacy does not have glucometerin stock. Requesting to have order sent to [facility] mail order pharmacy instead. Ashley asking if pt would be a good candidate for a freestyle justine or dexcom device so that she does not have to do fingersticks on the pt. Will forward request to C and AP to review * Telephone Encounter - Jami Sidhu RN - 01/09/2025 12:06 PM EDT Glucometer supplies placed by PCP PC to patient spouse. No answer left detailed VMM that glucometer/supplies were sent to [facility] documented in this encounter Plan of Treatment Upcoming Encounters Date Type Department Care Team (Late st Contact Info) Description 01/22/2025 1:30 PM EDT [facility] Visit [facility], [facility] [address] [place] [address] Peggy De RN [address] [place] [address] 03/12/2025 3:30 PM EDT Home Visit Care at Home [address], [place] [id number] Betina Jacob PA-C [address] [place], [place] [phone] 03/18/2025 11:15 AM EDT Office Visit Urology, [facility] [address] [place] [id number] Kalpesh Funes MD [address] [place] [address] 04/08/2025 7:05 AM EDT Laboratory Lab Mobile Phlebotomy [address] [place] [address] [facility] Mobile Home Draw [address] [place] [address] [place] [address] Health Maintenance Due Date Last Done Comments Alpha-1 Antitrypsin 1963 Diabetic Foot Exam 03/27/2021 03/27/2020, 08/23/2018 Diabetic Eye Exam 11/01/2023 11/01/2022, , 11/01/2022, Additional history exists Albumin/Creatinine Ratio 12/27/2023 023, 03/08/2019, 04/09/2014 HbA1c 11/23/2024 05/23/2024, 03/24, 12/26/2022, Additional history exists *NEPHROLOGY REFERRAL DUE TO RESISTANT HTN 12/01/2024 CKD PHOS USE SMARTSET 28380 12/07/202411/23, 12/26/2022, 06/21/2021 Adult Wellness Visit 03/06/2025 03/06/2024, 11/02/19 23 O2 ASSESSMENT COMPLETED IN PAST YEAR FOR COPD 04/12/2025 04/12/2024 GFR 07/05/2025 01/02/2025, 10/25, 11/07/2024, Additional history exists Depression Screening 08/06/2025 08/06/2024 CKD HGB USE SMARTSET 65387 01/02/202601/02, 01/02/2025, 11/21/2024, Additional history exists DTap/Tdap [...] this encounter Medical Devices Implanted Type Area Child Adolescent Psychiatrist Device Identifier Shelf Expiration Date Model / Serial / Lot Lens Intraoc 22.5 - [id number] - [id number] Implanted:Qty: 1 on 05/22/2018 by Jasbir Maurer MD at OR [facility] Right: Eye BAUSCH & LOMB 11/22/2022 [id number] / [id number] / [id number] Lens Intraoc 21.0 - [id number] - [id number] Implanted:Qty: 1 on 06/05/2018 by Jasbir Maurer MD at OR [facility] Left: Eye BAUSCH & LOMB 12/20/2022 [id number] / [id number] / Duraclip 16mm Xlg Repostn - [id number] Implanted:Qty: 1 on 04/12/2024 by Edilberto Lujan MD at OR [facility] [employer] NACHO [id number] 12/08/2024 [id number] / / [id number] Duraclip 16mm Xlg Repostn - [id number] Implanted:Qty: 1 on 04/12/2024 by Edilberto Lujan MD at OR [facility] CONMED NACHO [id number] 12/08/2024 [id number] / / [id number] Duraclip 16mm Xlg Repostn - [id number] Implanted:Qty: 1 on 04/12/2024 by Edilberto Lujan MD at OR [facility] [employer] NACHO [id number] 12/08/2024 [id number] / / [id number] documented as of this encounter Advance Directives [...] patient or by statute hierarchy) Care Teams Government Auditor Relationship Specialty Start Date End Date Michael Hinton MD [address] [place] [address] PCP - General Family Medicine 08/07/17 documented as of this encounter
--- OUTSIDE RECORDS SUMMARY | 2025-03-05 02:16 | External Medical Summary | Summary of Care ---
Author Name Unknown Organization [facility] Address [address] [place] [address] Phone [phone] Care Team Providers Care Operations Intelligence Superintendent Name Role Phone Michael Hinton MD Primary Care Provider [phone] Reason for Visit * Reason Onset Date Comments Med Request 01/10/2025 Encounter Details Date Type Department Care Team (Late st Contact Info) Description 01/10/2025 Telephone Family Practice [facility] [address] [facility] [place] [address] Michael Hinton MD [address] [facility] [place] [address] Med Request Allergies Active Allergy Reactions Criticality Noted Date Comments Fabiano Inhibitors Cough 06/09/2017 Carbidopa High 08/30/2024 Other Reaction(s): constipation Carbidopa W-Levodopa 03/17/2021 Constipation Levodopa High 08/30/2024 Other Reaction(s): constipation Nsaids Rash 05/17/2018 Contraindicated per equal opportunity representative documented as of this encounter (statuses [...] mitral valve regurgitation,Co ronary artery disease involving [place] coronary artery [...] daily . PLEASE SCHEDULE FOLLOW UP APPOINTMENT. [phone] 90 Capsule 1 12/11/2024 10:05 AM EST 12/09/19 25 Active Chlorhexidine Gluconate 0.12 % Mouth/Throat Solution (Peridex) Swish and spit 15 mL in the morning and 15 mL before bedtime. 473 mL 5 12/17/19 25 Active Additional Information Patient not taking.Reported on 01/07/2025 Nystatin 513051 UNIT/GM External Cream Apply topically to affected [...] 1 01/08/20 25 025 Discontin ued(Refil l) documented as [...] have staff contact office to notify of [facility] recommendation, possibly consider d.c maxzide and [...] (09/01/2024): Follows with Dr Shannon Zhang in [place] via telemed for PD Assessment & Plan [...] [place] heart without angina pectoris 03/21/2018 Assessment & [...] document from 11/13/[address] bains, [facility]. 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 Pending Prescriptions: Disp Refills Magic Swizzle (Tunmcmegl-Tggurlpd-Aphffy)*300 mL 1 Sig: Swish and spit 15 mL 2 times a day as needed (oral sores or pain). Last Visit: 12/17/2024 (in office), 08/19/2024 (telemedicine) Visit date not found If no future appointments scheduled, and last appointment is greater than a year ago, please schedule patient for a follow-up appointment Last date the medication was ordered: 01/07/2025 Patient Phone Numbers Labs: Lab Results Component [...] AM HGBA1C 6.3 (H) 03/18/2020 07:00 AM documented in this encounter Plan of Treatment Upcoming Encounters Date Type Department Care Team (Late st Contact Info) Description 01/22/2025 1:30 PM EDT [facility] [address] [place] [address] Peggy De, RN [address] [place] [address] 03/12/2025 3:30 PM EDT Home Visit Care at Home [address] [place] [address] Betina Jacob PA-C [address] [place] [address] 03/18/2025 11:15 AM EDT Office Visit Urology, [facility] [address] [place] [phone] Kalpesh Funes MD [address] [place] [address] 04/08/2025 7:05 AM EDT Laboratory Lab Mobile Phlebotomy [place] [address] [place] [address] [place] Mobile Home Draw [address] [place] [address] Health Maintenance Due Date Last Done Comments Alpha-1 Antitrypsin 1963 Diabetic Foot Exam 03/27/2021 03/27/2020, 08/23/2018 Diabetic Eye Exam 11/01/2023 11/01/2022, , 11/01/2022, Additional history exists Albumin/Creatinine Ratio 12/27/2023 023, 03/08/2019, 04/09/2014 HbA1c 11/23/2024 05/23/2024, 03/24, 12/26/2022, Additional history exists CKD PHOS USE SMARTSET 19609 12/07/202411/23, 12/26/2022, 06/21/2021 Adult Wellness Visit 03/06/2025 03/06/2024, 11/02/19 23 O2 ASSESSMENT COMPLETED IN PAST YEAR FOR COPD 04/12/2025 04/12/2024 GFR 07/05/2025 01/02/2025, 10/25, 11/07/2024, Additional history exists Depression Screening 08/06/2025 08/06/2024 CKD HGB USE SMARTSET 52965 01/02/202601/02, 01/02/2025, 11/21/2024, Additional history exists DTap/Tdap [...] encounter Medical Devices Implanted Type Area Manager Compliance Device Identifier Shelf Expiration Date Model / Serial / Lot Lens Intraoc 22.5 - [id number] - [id number] Implanted:Qty: 1 on 05/22/2018 by Jasbir Maurer MD at OR [facility] [place] [facility] Right: Eye BAUSCH & LOMB 11/22/2022 [id number] / [id number] / [id number] Lens Intraoc 21.0 - [id number] - [id number] Implanted:Qty: 1 on 06/05/2018 by Jasbir Maurer MD at OR [facility] [place] [facility] Left: Eye BAUSCH & LOMB 12/20/2022 [id number] / [id number] / Duraclip 16mm Xlg Repostn - [id number] Implanted:Qty: 1 on 04/12/2024 by Edilberto Lujan MD at OR [facility] Sitrion [id number] 12/08/2024 [id number] / / [id number] Duraclip 16mm Xlg Repostn - [id number] Implanted:Qty: 1 on 04/12/2024 by Edilberto Lujan MD at OR [facility] Sitrion [id number] 12/08/2024 [id number] / / [id number] Duraclip 16mm Xlg Repostn - [id number] Implanted:Qty: 1 on 04/12/2024 by Edilberto Lujan MD at OR [facility] Location [employer]MED NACHO [id number] 12/08/2024 [id number] / / [id number] documented as of this encounter Advance Directives [...] patient or by statute hierarchy) Care Teams Operations Intelligence Superintendent Relationship Specialty Start Date End Date Michael Hinton MD [address] [place] [address] PCP - General Family Medicine 08/07/17 documented as of this encounter
--- OUTSIDE RECORDS SUMMARY | 2025-03-05 02:17 | External Medical Summary | Summary of Care ---
Author Name Unknown Organization [facility] Address [address] [place] [address] Phone [phone] Care Team Providers Care Roof Fixer Name Role Phone Michael Hinton MD Primary Care Provider [phone] Reason for Visit * Reason Onset Date Comments [facility]: Maintenance 01/08/2025 Encounter Details Date Type Department Care Team (Late st Contact Info) Description 01/08/2025 Telephone [facility], [facility] [address] [facility] [place] [address] Jami Sidhu, RN [address] [place], [place] [phone] [facility]: Maintenance Allergies Active Allergy Reactions Criticality Noted Date Comments Fabiano Inhibitors Cough 06/09/2017 Carbidopa High 08/30/2024 Other Reaction(s): constipation Carbidopa W-Levodopa 03/17/2021 Constipation Levodopa High 08/30/2024 Other Reaction(s): constipation Nsaids Rash 05/17/2018 Contraindicated per occupational therapist assistants documented as of this encounter (statuses as of 01/08/2025) Medications Glucose Blood (ONETOUCH VERIO) STRPIndications: Type 2 diabetes mellitus with hemoglobin A1c goal of less than 8.0% ([facility]) Use up to 4 times a day E11.9 400 Strip 3 8 Active ONETOUCH DELICA LANCETS 33G MISCIndications: Type 2 diabetes mellitus with hemoglobin A1c goal of less than 8.0% ([facility]) Use up to 4 times a day 400 Each 3 8 Active DIURETIC TITRATION PLAN If no improvement [...] mitral valve regurgitation,Co ronary artery disease involving [place] coronary artery of [...] daily . PLEASE SCHEDULE FOLLOW UP APPOINTMENT. [phone] 90 Capsule 1 12/11/2024 10:05 AM EST 5 Active Chlorhexidine Gluconate 0.12 % Mouth/Throat Solution (Peridex) Swish and spit 15 mL in the morning and 15 mL before bedtime. 473 mL 5 Active Additional Information Patient not taking.Reported on 01/07/2025 Nystatin 962502 UNIT/GM External Cream Apply topically to affected area 2 times a day. To affacted area for two weeks. 30 g 2 Active Magic Swizzle (Lidocaine-Benad ryl-Maalox) oral solution Swish and spit 15 mL 2 times a day as needed (oral sores or pain). 300 mL 1 Active documented as of this encounter (statuses as of 01/08/2025) Active Problems Problem Noted Date Diagnosed Date [...] contact office to notify of [facility] recommendation, possibly consider d.c maxzide and maximize [...] (08/08/2024 3:17 PM EDT): Follows with [facility] hematology Routine labs monitored by hem/onc Labs pending today Iron infusion 08/02 Blood transfusion 08/05 Assessment & Plan (07/15/2024 6:05 PM EDT): Follows with [facility] hematology Routine labs monitored by hem/onc Update CBC next week Assessment & Plan (03/13/2024 11:24 AM EDT): Follows with [facility] hematology Routine labs monitored by hem/onc Update CBC tomorrow PRBC transfusions 01/2024, 02/2024 Assessment & Plan (10/17/2023 9:43 AM EST): Followed closely by [facility] hematology. No identified cause of HUNTER. Weekly labs monitored by hem/onc. Most recent hgb 8.7 Assessment & Plan (05/02/2023 1:04 PM EDT): Followed closely by [facility] [...] (09/01/2024): Follows with Dr Shannon Zhang in [place] via telemed for PD Assessment & Plan [...] of [place] heart without angina pectoris 03/21/2018 Assessment & [...] as of this encounter (statuses as of 01/08/2025) Resolved Problems Problem Noted Date Diagnosed Date [...] scanned document from 11/13/[address] bains, [facility]. 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 Not insulin dependant Spouse requesting new one touch verio glucometer kit and also needs lancets and strips Spouse also wondering if patient would qualify for continuous glucose monitoring system that does not require picking the finger If agreeable please place order for one touch glucometer/supplies to [facility] order for dexcom or freestyle justine (12/17/24 PCP office visit note may need to be addended to reflect the need for CGM for insurance purposes) PC to PCP office. Spoke to Zoya who is aware of above needs documented in this encounter Plan of Treatment Upcoming Encounters Date Type Department Care Team (Late st Contact Info) Description 01/09/2025 9:45 AM EDT Scheduled Telephone [facility], [facility] [address] [place] [address] [facility], Nurse [facility] [address] [place] [address] 01/22/2025 1:30 PM EDT [facility], [facility] [place] [address] Peggy De, RN [address] [place] [address] 03/12/2025 3:30 PM EDT Home Visit Care at Home [address] [place], [place] [phone] Betina Jacob PA-C [address] [place], [place] [phone] 03/18/2025 11:15 AM EDT Office Visit Urology, [facility] [address] [facility] [place] [address] Kalpesh Funes MD [address] [place] [address] 04/08/2025 7:05 AM EDT Laboratory Lab Mobile Phlebotomy [place] [phone] [place] [address] [facility] Mobile [facility] [address] [facility] [address] Health Maintenance Due Date Last Done Comments Alpha-1 Antitrypsin 1963 Diabetic Foot Exam 03/27/2021 03/27/2020, 08/23/2018 Diabetic Eye Exam 11/01/2023 11/01/2022, , 11/01/2022, Additional history exists Albumin/Creatinine Ratio 12/27/2023 023, 03/08/2019, 04/09/2014 HbA1c 11/23/2024 05/23/2024, 03/24, 12/26/2022, Additional history exists *NEPHROLOGY REFERRAL DUE TO RESISTANT HTN 12/01/2024 CKD PHOS USE SMARTSET 50980 12/07/202411/23, 12/26/2022, 06/21/2021 Adult Wellness Visit 03/06/2025 03/06/2024, 11/02/19 23 O2 ASSESSMENT COMPLETED IN PAST YEAR FOR COPD 04/12/2025 04/12/2024 GFR 07/05/2025 01/02/2025, 10/25, 11/07/2024, Additional history exists Depression Screening 08/06/2025 08/06/2024 CKD HGB USE SMARTSET 64564 01/02/202601/02, 01/02/2025, 11/21/2024, Additional history exists DTap/Tdap [...] this encounter Medical Devices Implanted Type Area Sheetmetal Trades Worker Device Identifier Shelf Expiration Date Model / Serial / Lot Lens Intraoc 22.5 - [id number] - [id number] Implanted:Qty: 1 on 05/22/2018 by Jasbir Maurer MD at OR [facility] Right: Eye BAUSCH & LOMB 11/22/2022 [id number] / [id number] Lens Intraoc 21.0 - [id number] - [id number] Implanted:Qty: 1 on 06/05/2018 by Jasbir Maurer MD at OR [facility] Left: Eye BAUSCH & LOMB 12/20/2022 [id number] / [id number] / Duraclip 16mm Xlg Repostn - [id number] Implanted:Qty: 1 on 04/12/2024 by Edilberto Lujan MD at OR [facility] [employer]Patient[employer] [id number] 12/08/2024 [id number] / / [id number] Duraclip 16mm Xlg Repostn - [id number] Implanted:Qty: 1 on 04/12/2024 by Edilberto Lujan MD at OR [facility] [employer] [id number] 12/08/2024 [id number] / / [id number] Duraclip 16mm Xlg Repostn - [id number] Implanted:Qty: 1 on 04/12/2024 by Edilberto Lujan MD at OR [facility] [employer] [id number] 12/08/2024 [id number] / / [id number] documented as of this encounter Advance Directives [...] patient or by statute hierarchy) Care Teams Roof Fixer Relationship Specialty Start Date End Date Michael Hinton MD [address] [place] [address] PCP - General Family Medicine 08/07/17 documented as of this encounter
--- OUTSIDE RECORDS SUMMARY | 2025-03-05 02:17 | External Medical Summary | Summary of Care ---
Author Name Unknown Organization [facility] Address [address] [place] [address] Phone [phone] Care Team Providers Care Facetor Name Role Phone Michael Hinton MD Primary Care Provider [phone] Reason for Visit * Reason Onset Date Comments Advice 01/07/2025 Encounter Details Date Type Department Care Team (Late st Contact Info) Description 01/07/2025 Telephone Family Practice [facility] [address] [place] [address] Eduardo Groves MD [address] [place] [address] Advice Allergies Active Allergy Reactions Criticality Noted Date Comments Fabiano Inhibitors Cough 06/09/2017 Carbidopa High 08/30/2024 Other Reaction(s): constipation Carbidopa W-Levodopa 03/17/2021 Constipation Levodopa High 08/30/2024 Other Reaction(s): constipation Nsaids Rash 05/17/2018 Contraindicated per manager long term care documented as of this encounter (statuses as of 01/08/2025) Medications DIURETIC TITRATION PLAN If no improvement on day 3, contact heart failure managing provider. 1 Each 05/02/20 23 Active Betamethasone Dipropionate 0.05 % External OintmentIndicat ions:Inflamed seborrheic keratosis APPLY TO SKIN LESIONS AND SCALP LESIONS UP TO TWO TIMES A DAY FOR NO LONGER THAN 2 WEEKS AT A TIME FOR ITCH. (THEN TAKE A 2 WEEK BREAK) 45 g 2 01/16/202 4 10:13 AM EST 11/06/19 24 Active Escitalopram Oxalate 20 MG Oral Tablet (Lexapro) take one tablet by mouth daily in the morning 90 Tablet 3 5 8:54 AM EST 02/09/20 24 Active Allopurinol 300 MG Oral Tablet (Zyloprim) Take 1 Tablet by mouth in the morning. 90 Tablet 3 5 3:03 PM EST 05/13/20 24 Active Triamcinolone Acetonide 0.1 % External Ointment (Aristocort) Apply to legs daily with dressing changes 454 g 1 08/14/20 24 Active Saccharomyces boulardii 250 MG Oral Capsule (Florastor)Mary cations:Clostri dium difficile diarrhea Take 1 Capsule by mouth in the morning and 1 Capsule before bedtime. 90 Capsule 3 08/19/20 24 Active Additional Information Patient not taking.Reported on 01/07/2025 Metoprolol Succinate ER 50 MG Oral Tablet Extended Release 24 Hour (Toprol XL) Take 1 Tablet by mouth in the morning. 90 Tablet 3 5 5:23 PM EST 08/26/20 24 Active Dificid [...] 3 5 12:24 PM EST 09/11/20 24 Active Additional Information Patient not taking.Reported on 01/07/2025 Spironolactone 25 MG Oral Tablet (Aldactone) Take one-half Tablet by mouth in the morning. 45 Tablet 3 5 4:41 PM EST 09/17/20 24 Active Dutasteride 0.5 MG Oral Capsule (Avodart) Take 1 Capsule by mouth in the morning. 90 Capsule 3 4 5:00 PM EST 09/17/20 24 Active Atorvastatin Calcium 40 MG Oral Tablet (Lipitor)Indica tions:Dyslipide ray Take 1 Tablet by mouth in the morning. 90 Tablet 3 5 1:44 PM EST 09/25/20 24 Active Empagliflozin 10 MG Oral Tablet (Jardiance) Take 1 Tablet by mouth in the morning. Do not start before October 28, 2024. 90 Tablet 3 4 11:54 AM EST 10/28/19 25 Active buPROPion HCl ER (XL) 150 MG Oral Tablet Extended Release 24 Hour (Wellbutrin XL)Indications: FABIANO (generalized anxiety disorder) Take 1 Tablet by mouth in the morning. 90 Tablet 3 4 4:25 PM EST 10/10/20 24 Active Donepezil HCl 5 MG Oral Tablet (Aricept) Take 1 tablet (5 mg total) by mouth every morning . 90 Tablet 1 4 4:39 PM EST 10/21/20 24 Active Torsemide 20 MG Oral Tablet (Demadex)Indica tions:Paroxysma l atrial fibrillation (HCC),Nonrheuma tic mitral valve regurgitation,C oronary artery disease involving pamunkey coronary artery of pamunkey heart without angina pectoris,Stage 3b chronic kidney [...] daily . PLEASE SCHEDULE FOLLOW UP APPOINTMENT. [phone] 90 Capsule 1 5 10:05 AM EST 12/09/19 25 Active Chlorhexidine Gluconate 0.12 % Mouth/Throat Solution (Peridex) Swish and spit 15 mL in the morning and 15 mL before bedtime. 473 mL 5 12/17/19 25 Active Additional Information Patient not taking.Reported on 01/07/2025 Nystatin 550851 UNIT/GM External Cream Apply topically to affected area 2 times a day. To affacted area for two weeks. 30 g 2 12/17/19 25 Active Magic Swizzle (Lidocaine-Arely dryl-Maalox) oral solution Swish and spit 15 mL 2 times a day as needed (oral sores or pain). 300 mL 1 01/08/20 25 Active Glucose Blood (ONETOUCH VERIO) STRPIndications :Type 2 diabetes mellitus with hemoglobin A1c goal of less than 8.0% (HCC) Use up to 4 times a day E11.9 400 Strip 3 08/29/20 18 2024 Discontinued(R efill) ONETOUCH DELICA LANCETS 33G MISCIndications :Type 2 diabetes mellitus with hemoglobin A1c goal of less than 8.0% (HCC) Use up to 4 times a day 400 Each 3 08/29/20 18 2024 Discontinued(R efill) Anbesol 10 % Mouth/Throat Gel (Benzocaine) Apply topically to affected area 3 times a day as needed (oral canker sore pain). 9 g 2 12/17/19 25 2024 Discontinued documented as of this encounter [...] have staff contact office to notify of [facility] recommendation, possibly consider d.c maxzide [...] anemia in Aug with drop to 4.3. [facility] now monitoring counts weekly. Pt [...] (09/01/2024): Follows with Dr Shannon Zhang in [place] via telemed for PD Assessment & Plan [...] knees 03/21/2018 Coronary artery disease invo lving pamunkey coronary artery of pamunkey heart without angina pectoris 03/21/2018 Assessment & [...] scanned document from 11/13/[address] [facility]. 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 Relayed information to , voiced understanding. * Telephone Encounter - Eduardo Groves MD - 01/07/2025 6:07 PM EDT He should use the rinse. I called in Magic Swizzle to replace the anbesol. Sent To [facility]'s Please let know Thanks, * Telephone Encounter - Mikki Bentley CMA - 01/07/2025 4:03 PM EDT Patient presented in person for cardiology appt. Patient seen by Dr. Groves on 12/17 for canker sores, wanted him to know his canker sores are not improving. Pt's assisting with med rec reportshe is not using the chlorhexidine gluconate mouthwash prescribed by Dr. Groves for these canker sores, but reports he is using the Anbesol mouth/throat gel. Pt says the sores are about the same in severity. Please advise. documented in this encounter Plan of Treatment Upcoming Encounters Date Type Department Care Team (Late st Contact Info) Description 01/09/2025 9:45 AM EDT Scheduled Telephone [facility], [facility] [address] [place] [address] [facility] [address] [place] [address] 01/22/2025 1:30 PM EDT Home Visit [facility], [facility] [address] [place] [address] Peggy De, RN [address] [facility] [place] [address] 03/12/2025 3:30 PM EDT Home Visit Care at Home [address], [place] [id number] Betina Jacob PA-C [address] [place] [address] 03/18/2025 11:15 AM EDT Office Visit Urology, [facility] [address] [place] [id number] Kalpesh Funes MD [address] [place] [address] 04/08/2025 7:05 AM EDT Laboratory Lab Mobile Phlebotomy [place] [address] [place] [address] [place], [facility] Mobile Home Draw [address] [place] [address] Health Maintenance Due Date Last Done Comments Alpha-1 Antitrypsin 1963 Diabetic Foot Exam 03/27/2021 03/27/2020, 08/23/2018 Diabetic Eye Exam 11/01/2023 11/01/2022, , 11/01/2022, Additional history exists Albumin/Creatinine Ratio 12/27/2023 023, 03/08/2019, 04/09/2014 HbA1c 11/23/2024 05/23/2024, 03/24, 12/26/2022, Additional history exists *NEPHROLOGY REFERRAL DUE TO RESISTANT HTN 12/01/2024 CKD PHOS USE SMARTSET 15726 12/07/202411/23, 12/26/2022, 06/21/2021 Adult Wellness Visit 03/06/2025 03/06/2024, 11/02/19 23 O2 ASSESSMENT COMPLETED IN PAST YEAR FOR COPD 04/12/2025 04/12/2024 GFR 07/05/2025 01/02/2025, 10/25, 11/07/2024, Additional history exists Depression Screening 08/06/2025 08/06/2024 CKD HGB USE SMARTSET 07544 01/02/202601/02, 01/02/2025, 11/21/2024, Additional history exists DTap/Tdap [...] this encounter Medical Devices Implanted Type Area Labeler Device Identifier Shelf Expiration Date Model / Serial / Lot Lens Intraoc 22.5 - [id number] - [id number] Implanted:Qty: 1 on 05/22/2018 by Jasbir Maurer MD at [facility] Right: Eye [employer]OM[employer] 11/22/2022 [id number] / [id number] / [id number] Lens Intraoc 21.0 - [id number] - [id number] Implanted:Qty: 1 on 06/05/2018 by Jasbir Maurer MD at OR [facility] Left: Eye BAUSCH & LOMB 12/20/2022 [id number] / [id number] / Duraclip 16mm Xlg Repostn - [id number] Implanted:Qty: 1 on 04/12/2024 by Edilberto Lujan MD at OR [facility] curated.by [id number] 12/08/2024 [id number] / / [id number] Duraclip 16mm Xlg Repostn - [id number] Implanted:Qty: 1 on 04/12/2024 by Edilberto Lujan MD at OR [facility] curated.by [id number] 12/08/2024 [id number] / / [id number] Duraclip 16mm Xlg Repostn - [id number] Implanted:Qty: 1 on 04/12/2024 by Edilberto Lujan MD at OR [facility] curated.by [id number] 12/08/2024 [id number] / / [id number] documented as of this encounter Advance Directives [...] patient or by statute hierarchy) Care Teams Facetor Relationship Specialty Start Date End Date Michael Hinton MD [address] [place] [address] PCP - General Family Medicine 08/07/17 documented as of this encounter
--- OUTSIDE RECORDS SUMMARY | 2025-03-05 02:17 | External Medical Summary | Summary of Care ---
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 Operator Name Role Phone Michael Hinton MD Primary Care Provider [phone] Reason for Visit * Reason Onset Date Comments Advice 01/07/2025 Encounter Details Date Type Department Care Team (Late st Contact Info) Description 01/07/2025 Telephone Family Practice [facility] [address] [place] [address] Eduardo Groves MD [address] [place] [address] Advice Allergies Active Allergy Reactions Criticality Noted Date Comments Fabiano Inhibitors Cough 06/09/2017 Carbidopa High 08/30/2024 Other Reaction(s): constipation Carbidopa W-Levodopa 03/17/2021 Constipation Levodopa High 08/30/2024 Other Reaction(s): constipation Nsaids Rash 05/17/2018 Contraindicated per analysis engineer documented as of this encounter (statuses as of 01/08/2025) Medications Glucose Blood (ONETOUCH VERIO) STRPIndications :Type 2 diabetes mellitus with hemoglobin A1c goal of less than 8.0% ([facility]) Use up to 4 times a day E11.9 400 Strip 3 08/29/20 18 Active ONETOUCH DELICA LANCETS 33G MISCIndications :Type 2 diabetes mellitus with hemoglobin A1c goal of less than 8.0% (HCC) Use up to 4 times a day 400 Each 3 08/29/20 18 Active DIURETIC TITRATION PLAN If no improvement [...] mitral valve regurgitation,C oronary artery disease involving afogn[place] coronary artery of afognak heart without angina pectoris,Stage 3b chronic kidney [...] daily . PLEASE SCHEDULE FOLLOW UP APPOINTMENT. [phone] 90 Capsule 1 5 10:05 AM EST 12/09/19 25 Active Chlorhexidine Gluconate 0.12 % Mouth/Throat Solution (Peridex) Swish and spit 15 mL in the morning and 15 mL before bedtime. 473 mL 5 12/17/19 Active Additional Information Patient not taking.Reported on 01/07/2025 Nystatin 913796 UNIT/GM External Cream Apply topically to affected area 2 times a day. To affacted area for two weeks. 30 g 2 12/17/19 Active Magic Swizzle (Lidocaine-Iola dryl-Maalox) oral solution Swish and spit 15 mL 2 times a day as needed (oral sores or pain). 300 mL 1 01/08/20 Active Anbesol 10 % Mouth/Throat Gel (Benzocaine) Apply topically to affected area 3 times a day as needed (oral canker sore pain). 9 g 2 12/17/19 25 025 Discontinued documented as of this encounter (statuses [...] Metoprolol Succinate (ER) FABIANO Inhibitor/ARB Therapy: No FABINAO/ARB/ARNI secondary to: cough Diuretic therapy: Torsemide Self [...] have staff contact office to notify of [facility] recommendation, possibly consider d.c maxzide and maximize [...] Plan (08/08/2024 3:17 PM EDT): Follows with [facility] hematology Routine labs monitored by hem/onc Labs pending today Iron infusion 08/02 Blood transfusion 08/05 Assessment & Plan (07/15/2024 6:05 PM EDT): Follows with [facility] hematology Routine labs monitored by hem/onc Update CBC next week Assessment & Plan (03/13/2024 11:24 AM EDT): Follows with [facility] hematology Routine labs monitored by hem/onc Update CBC tomorrow PRBC transfusions 01/2024, 02/2024 Assessment & Plan (10/17/2023 9:43 AM EST): Followed closely by [facility] hematology. No identified cause of HUNTER. Weekly labs monitored by hem/onc. Most recent hgb 8.7 Assessment & Plan (05/02/2023 1:04 PM EDT): Followed closely by [facility] hematology. No identified cause of HUNTER. Weekly labs monitored by hem/onc. Most recent hgb stable 10.5. Assessment & Plan (03/28/2023 1:27 PM EDT): Received blood transfusion 03/24 -will follow-up CBC on 03/30 -continue ferrous sulfate. Dose once daily. Med list updated Assessment & Plan (10/19/2022 1:20 PM EST): Followed by hem/onc. Had severe anemia in Nov with drop to 4.3. 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 I called in Agapito Montes to replace the anbesol. [facility] Please let know Thanks, * Telephone Encounter [...] PM EDT Home Visit [facility], [facility] [address] [place] [address] Peggy De RN [address] [place] [address] 03/12/2025 3:30 PM EDT Home Visit Care at Home [address] [place] [address] Betina Jacob PA-C [address] [place], [place] [id number] 03/18/2025 11:15 AM EDT Office Visit Urology, [facility] [address] [place] [address] Kalpesh Funes MD [address] [place] [address] 04/08/2025 7:05 AM EDT Laboratory Lab Mobile Phlebotomy [place] [address] [place] [address] [address] [facility] Mobile Home Draw [facility] [place] [address] Health Maintenance Due Date Last Done Comments Alpha-1 Antitrypsin 1963 Diabetic Foot Exam 03/27/2021 03/27/2020, 08/23/2018 Diabetic Eye Exam 11/01/2023 11/01/2022, , 11/01/2022, Additional history exists Albumin/Creatinine Ratio 12/27/2023 023, 03/08/2019, 04/09/2014 HbA1c 11/23/2024 05/23/2024, 03/24, 12/26/2022, Additional history exists *NEPHROLOGY REFERRAL DUE TO RESISTANT HTN 12/01/2024 CKD PHOS USE SMARTSET 18688 12/07/202411/23, 12/26/2022, 06/21/2021 Adult Wellness Visit 03/06/2025 03/06/2024, 11/02/19 23 O2 ASSESSMENT COMPLETED IN PAST YEAR FOR COPD 04/12/2025 04/12/2024 GFR 07/05/2025 01/02/2025, 10/25, 11/07/2024, Additional history exists Depression Screening 08/06/2025 08/06/2024 CKD HGB USE SMARTSET 82718 01/02/202601/02, 01/02/2025, 11/21/2024, Additional history exists DTap/Tdap [...] this encounter Medical Devices Implanted Type Area Capacity Planner Device Identifier Shelf Expiration Date Model / Serial / Lot Lens Intraoc 22.5 - [id number] - [id number] Implanted:Qty: 1 on 05/22/2018 by Jasbir Maurer MD at OR [facility] Right: Eye BAUSCH & LOMB 11/22/2022 [id number] / [id number] / [id number] Lens Intraoc 21.0 - [id number] - [id number] Implanted:Qty: 1 on 06/05/2018 by Jasbir Maurer MD at OR [facility] Left: Eye BAUSCH & LOMB 12/20/2022 [id number] / [id number] / Duraclip 16mm Xlg Repostn - [id number] Implanted:Qty: 1 on 04/12/2024 by Edilberto Lujan MD at OR [facility] [employer] [id number] 12/08/2024 [id number] / / [id number] Duraclip 16mm Xlg Repostn - [id number] Implanted:Qty: 1 on 04/12/2024 by Edilberto Lujan MD at OR [facility] [employer] [id number] 12/08/2024 [id number] / / [id number] Duraclip 16mm Xlg Repostn - [id number] Implanted:Qty: 1 on 04/12/2024 by Edilberto Lujan MD at OR [facility] [employer] [id number] 12/08/2024 [id number] / / [id number] documented as of this encounter Advance Directives [...] patient or by statute hierarchy) Care Teams Long Chain Dyeing Machine Operator Relationship Specialty Start Date End Date Michael Hinton MD [address] [place] [address] PCP - General Family Medicine 08/07/17 documented as of this encounter
--- OUTSIDE RECORDS SUMMARY | 2025-03-05 02:17 | External Medical Summary | Summary of Care ---
Author Name Unknown Organization [facility] Address [address] [place] [address] Phone [phone] Care Team Providers Care Audit Mgr Name Role Phone Michael Hinton MD Primary Care Provider [phone] Reason for Visit * Reason Comments Follow Up Encounter Details Date Type Department Care Team (Latest Contact Info) Description 01/07/2025 3:00 PM EDT Office Visit Cardiology, [facility] [address] [facility] [place] [address] Dominick Benz, [address] [facility] [address] Chronic heart failure with preserved ejection fraction (HFpEF) ([facility])*; Nonrheumatic mitral valve regurgitation; Nonrheumatic aortic valve insufficiency Allergies Active Allergy Reactions Criticality Noted Date Comments Fabiano Inhibitors Cough 06/09/2017 Carbidopa High 08/30/2024 Other Reaction(s): constipation Carbidopa W-Levodopa 03/17/2021 Constipation Levodopa High 08/30/2024 Other Reaction(s): constipation Nsaids Rash 05/17/2018 Contraindicated per manager civil documented as of this encounter (statuses as of 01/08/2025) Medications Glucose Blood (ONETOUCH VERIO) STRPIndications :Type 2 diabetes mellitus with hemoglobin A1c goal of less than 8.0% ([facility]) Use up to 4 times a day E11.9 400 Strip 3 08/29/20 18 Active ONETOUCH DELICA LANCETS 33G MISCIndications :Type 2 diabetes mellitus with hemoglobin A1c goal of less than 8.0% ([facility]) Use up to 4 times a [...] mitral valve regurgitation,C oronary artery disease involving augustine coronary artery of augustine heart without angina pectoris,Stage 3b chronic kidney [...] daily . PLEASE SCHEDULE FOLLOW UP APPOINTMENT. [phone] 90 Capsule 1 5 10:05 AM EST 12/09/19 25 Active Chlorhexidine Gluconate 0.12 % Mouth/Throat Solution (Peridex) Swish and spit 15 mL in the morning and 15 mL before bedtime. 473 mL 5 12/17/19 Active Additional Information Patient not taking.Reported on 01/07/2025 Nystatin 195430 UNIT/GM External Cream Apply topically to affected area 2 times a day. To affacted area for two weeks. 30 g 2 12/17/19 Active Potassium Chloride 20 MEQ/15ML (10%) Oral SolutionIndicat ions:Chronic diastolic 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 (HCC) Take 15 mL by mouth in the morning. 1500 mL 3 4 11:54 AM EST 08/26/20 24 2024 Discontinued(M edication/Dose Changed) Anbesol 10 % Mouth/Throat Gel (Benzocaine) Apply [...] have staff contact office to notify of [facility] recommendation, possibly consider d.c maxzide [...] Encounters: 10/10/22 118/58 09/27/22 136/56 09/16/22 132/70 11/15/22 112/52 Basic Panel Results: Results for orders [...] Plan (08/08/2024 3:17 PM EDT): Follows with [facility] hematology Routine labs monitored by hem/onc Labs pending today Iron infusion 08/02 Blood transfusion 08/05 Assessment & Plan (07/15/2024 6:05 PM EDT): Follows with [facility] hematology Routine labs monitored by hem/onc Update CBC next week Assessment & Plan (03/13/2024 11:24 AM EDT): Follows with [facility] hematology Routine labs monitored by hem/onc Update CBC tomorrow PRBC transfusions 01/2024, 02/2024 Assessment & Plan (10/17/2023 9:43 AM EST): Followed closely by [facility] hematology. No identified cause of HUNTER. Weekly labs monitored by hem/onc. Most recent hgb 8.7 Assessment & Plan (05/02/2023 1:04 PM EDT): Followed closely by [facility] hematology. No identified cause of [...] (09/01/2024): Follows with Dr Shannon Zhang in [place] via telemed for PD Assessment & Plan [...] knees 03/21/2018 Coronary artery disease invo lving augustine coronary artery of augustine heart without angina pectoris 03/21/2018 Assessment & [...] document from 11/13/[address] [facility] [place]. 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 Not on file Not on file Not on fi le Not on file Not on file Not on file Not on file documented as of this encounter Last Filed Vital Signs Vital Sign Reading Time Taken Comments Blood Pressure 104/60 01/07/2025 2:55 PM EDT Pulse 58 01/07/2025 2:55 PM EDT Temperature - - Respiratory Rate 18 01/07/2025 2:55 PM EDT Oxygen Saturation - - Inhaled Oxygen Concentration - - Weight 70.1 kg (154 lb 8 oz) 01/07/2025 2:55 PM EDT Height - - Body Mass Index 25.71 11/04/2024 11:08 AM EST documented in this encounter Progress Notes * Dominick Benz, - 01/07/2025 3:18 PM EDT 01/07/2025 Cardiology Follow Up SUBJECTIVE: History of Present Illness Jesus Jose is an 79 year old male with congestive heart failure and valvular heart disease who presents for follow-up of leg swelling and blood sugar management. He has experienced significant improvement in leg swelling since the last visit in September, attributing this to the adjusted diuretic regimen, which includes torsemide 60 mg daily, Jardiance 10 mg daily, and spironolactone 12.5 mg daily. He is satisfied with the current state of his legs, stating,'I've never seen them look so good.' He has a history of congestive heart failure with preserved ejection fraction, currently stable with a left ventricular ejection fraction of 65-70% as per the most recent echocardiogram from April. He continues on the current medication regimen, which effectively manages his symptoms. He has a history of valvular heart disease, specifically moderate aortic and at least moderate mitral valve regurgitation. No surgical intervention is planned due to his overall health status. His blood sugar levels have been elevated, with a recent reading of 259 mg/dL last and a previous reading of 275 mg/dL in October. He has not been using his glucometer at home but acknowledges the need to start monitoring his blood sugar more regularly. He is currently on Jardiance, which was previously reduced due to kidney function concerns. He has a history of paroxysmal atrial fibrillation but is not currently on blood thinners due to chronic anemia and past procedures for small bowel arterial venous malformations. He is not on aspirinfor the same reason. 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 He continues to monitor hemoglobin levels. He has a history of high cholesterol, with a recent LDL level of 69 mg/dL. He continues on atorvastatin 40 mg daily. He has not been using his prescribed oxygen due to experiencing epistaxis, which he attributes to dryness. He reports feeling good without the oxygen, although he only used it at night. He uses a walker for mobility and is in the process of being fitted for diabetic shoes at the woundclinic to aid in walking. He reports doing 'all right' with walking but needs to be careful. 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 2.Chronic diastolic CHF, NYHA class 3 -lower extremity venous stasis wounds, following with [place] [facility] 3.Valvular heart disease with at least moderate mitral insufficiency and moderate aortic insufficiency 4.Paroxysmal atrial fibrillation-off anticoagulation due to bleeding concern 5.Prostatic hypertrophy 6.CKD 7.Parkinson's disease with related gait instability and dementia- follows with [facility] 8.Significant anemia- follows with [facility] heme, gets IV iron transfusions Extensive ROS: All systems reviewed & are unremarkable except as noted in HPI & below Cardiovascular (chest pain/palpitations/fluttering/diaphoresis/dyspnea on exertion/paroxysmally nocturnal dyspnea):Negative Review of patient's allergies indicates: Allergen Reactions Carbidopa Other Reaction(s): constipation Levodopa Other Reaction(s): constipation Fabiano Inhibitors Cough Carbidopa W-Levodopa Constipation Nsaids Rash Contraindicated per manager civil Current Outpatient Medications Medication Sig Dispense Refill Escitalopram Oxalate 20 MG Oral Tablet (Lexapro) take one tablet by mouth daily in the morning 90 Tablet 3 Allopurinol 300 MG Oral Tablet (Zyloprim) Take 1 Tablet by mouth in the morning. 90 Tablet 3 Triamcinolone Acetonide 0.1 % External Ointment (Aristocort) Apply to legs daily with dressing changes 454 g 1 Metoprolol Succinate ER 50 MG Oral Tablet Extended Release 24 Hour (Toprol XL) Take 1 Tablet by mouth in the morning. 90 Tablet 3 Spironolactone 25 MG Oral Tablet (Aldactone) Take one-half Tablet by mouth in the morning. 45 Tablet 3 Dutasteride 0.5 MG Oral Capsule (Avodart) Take 1 Capsule by mouth in the morning. 90 Capsule 3 Atorvastatin Calcium 40 MG Oral Tablet (Lipitor) Take 1 Tablet by mouth in the morning. 90 Tablet 3 Empagliflozin 10 MG Oral Tablet (Jardiance) Take 1 Tablet by mouth in the morning. Do not start before October 28, 2024. 90 Tablet 3 buPROPion HCl ER (XL) 150 MG Oral Tablet Extended Release 24 Hour (Wellbutrin XL) Take 1 Tablet by mouth in the morning. 90 Tablet 3 Donepezil HCl 5 MG Oral Tablet (Aricept) Take 1 tablet (5 mg total) by mouth every morning . 90 Tablet 1 Torsemide 20 MG Oral Tablet (Demadex) Take 3 Tablets by mouth once a day on Monday, Monday, and Monday only AND 2 Tablets once a day on Monday, , Monday, and Monday only. Amantadine HCl 100 MG Oral Capsule (Symmetrel) Take 1 capsule (100 mg total) by mouth daily . PLEASE SCHEDULE FOLLOW UP APPOINTMENT. [phone] 90 Capsule 1 Anbesol 10 % Mouth/Throat Gel (Benzocaine) Apply topically to affected area 3 times a day as needed(oral canker sore pain). 9 g 2 Nystatin 992088 UNIT/GM External Cream Apply topically to affected area 2 times a day. To affacted area for two weeks. 30 g 2 Glucose Blood (ONETOUCH VERIO) STRP Use up to 4 times a day E11.9 400 Strip 3 ONETOUCH DELICA LANCETS 33G MISC Use up to 4 times a day 400 Each 3 DIURETIC TITRATION PLAN If no improvement on day 3, contact heart failure managing provider. 1 Each0 Betamethasone Dipropionate 0.05 % External Ointment APPLY TO SKIN LESIONS AND SCALP LESIONS UP TO TWO TIMES A DAY FOR NO LONGER THAN 2 WEEKS AT A TIME FOR ITCH. (THEN TAKE A 2 WEEK BREAK) 45 g 2 Saccharomyces boulardii 250 MG Oral Capsule (Florastor) Take 1 Capsule by mouth in the morning and 1 Capsule before bedtime. (Patient not taking: Reported on 01/07/2025) 90 Capsule 3 Potassium Chloride 20 MEQ/15ML (10%) Oral Solution Take 15 mL by mouth in the morning. (Patient nottaking: Reported on 01/07/2025) 1500 mL 3 Dificid 200 MG Oral Tablet (Fidaxomicin) Take 1 Tablet by mouth every other day. (Patient not taking: Reported on 01/07/2025) 35 Tablet 0 Colestipol HCl 1 GM Oral Tablet (Colestid) take 2 tablets by mouth with supper and 2 tablets by mouth at bedtime. Adjust as needed. (Patient not taking: Reported on 01/07/2025) 360 Tablet 3 Lidocaine 5 % External Patch (Lidoderm) Place 1 Patch over 12 hours topically on the skin daily. (Patient not taking: Reported on 01/07/2025) 30 Patch 0 Chlorhexidine Gluconate 0.12 % Mouth/Throat Solution (Peridex) Swish and spit 15 mL in the morning and 15 mL before bedtime. (Patient not taking: Reported on 01/07/2025) 473 mL 5 No current facility-administered medications for this visit. OBJECTIVE/PHYSICAL EXAMINATION: BP 104/60 (BP Site: Left Arm) | Pulse 58 | Resp 18 | Wt 70.1 kg (154 lb 8 oz) | BMI 25.71 kg/m² | BSA 1.79 m² General: no acute distress and stated age Eyes: conjunctiva are pink and non-injected, sclera clear Neck: normal jugular venous pulse, no hepatojugular reflux Chest: normal shape and normal respiratory effort Lungs: clear to auscultation , no rales rhonchi or wheezing Cardiac Exam: -regular rhythm, 2/6 SM Abdomen: abdomen soft, non-tender, no abnormal masses and no hepatosplenomegaly Musculoskeletal: no gait disturbance, no weakness Extremities: mild erythema, 1+ Bilateral LE edema Neuro: grossly normal exam Psych: appropriate affect and insight. Data: Results LABS Blood Glucose: 259 (01/02/2025) Blood Glucose: 275 (10/2024) Blood Glucose: 259 (01/07/2025) Creatinine: Stable (01/02/2025) LDL: 69 (01/18/2024) DIAGNOSTIC Echocardiogram: Left ventricular ejection fraction 65-70%, moderate aortic valve regurgitation, moderate mitral valve regurgitation (05/05/2024) EKG: Atrial fibrillation (08/2024) Latest Reference Range & Units 01/02/25 09:45 SODIUM 135 - 146 mmol/L 141 POTASSIUM 3.5 - 5.1 mmol/L 4.1 CHLORIDE 98 - 107 mmol/L 99 CO2 22 - 32 mmol/L 29 BUN 6 - 20 mg/dL 39 (H) CREATININE 0.6 - 1.2 mg/dL 2.0 (H) EGFR >=60 mL/min 33 (L) ANION GAP 7 - 15 mmol/L 13 GLUCOSE 70 - 120 mg/dL 259 (H) CALCIUM 8.4 - 10.2 mg/dL 9.8 Protein 6.0 - 8.3 g/dL 6.4 (H): Data is abnormally high (L): Data is abnormally low Assessment & Plan Congestive Heart Failure with Preserved Ejection Fraction Congestive heart failure with preserved ejection fraction. Current medications include torsemide, Jardiance, and spironolactone. Ejection fraction is 65-70%. - Continue current heart failure medications Peripheral Edema Peripheral edema managed with torsemide 60 mg daily, Jardiance 10 mg daily, and spironolactone 12.5mg daily. Reports significant improvement in leg swelling. Backup plan for diuretic titration if weight gain occurs. - Continue current diuretic regimen - If weight increases by 3 pounds overnight or 5 pounds in a week, double torsemide dose for 3 days Valvular Heart Disease Moderate aortic and mitral valve regurgitation on echocardiogram. No surgical intervention due to overall health status and poor surgical candidacy. Management with medications is preferred. - Monitor with regular follow-up - Avoid surgical intervention Paroxysmal versus Persistent Atrial Fibrillation Paroxysmal atrial fibrillation. Not on anticoagulation due to chronic anemia and bleeding risk fromsmall bowel AV malformations. Heart rhythm appears regular. 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 History of argon plasma coagulation and clip placement. No anticoagulation due to bleeding risk. - Monitor hemoglobin levels Chronic Kidney Disease Chronic kidney disease with well-managed kidney function. Previous adjustments to diabetes medications due to kidney function concerns. - Monitor kidney function, especially with medication changes Type 2 Diabetes Mellitus Elevated blood glucose levels with recent readings of 259 mg/dL. Concerns about increasing Jardiance dose due to potential kidney strain. Previous metformin use discontinued due to kidney function concerns. Lowering blood sugar is challenging due to medication restrictions. - Monitor blood glucose levels at home, fasting and postprandial - follow up with Dr Hinton regarding diabetes management - Consider referral to clinical pharmacist for diabetes management Hyperlipidemia Hyperlipidemia managed with atorvastatin. Recent LDL level is 69 mg/dL. - Continue atorvastatin 40 mg daily Epistaxis Epistaxis likely secondary to nasal dryness from oxygen use. Reports not using oxygen due to epistaxis. Breathing feels adequate without oxygen, which was primarily used at night. - Evaluate need for oxygen therapy - Consider humidification to reduce nasal dryness Follow up : Follow Up: Return in about 6 months (around 07/10/2025) for Clinic Visit. | For: Clinic Visit Patient seen in longitudinal follow up of the above issues with assessment and plan as documented. Dominick Benz DO [facility] [address] [facility] [facility] [address] Text in this note was generated using an [employer] documentation service. I discussed the use of a device to record and summarize our discussion today. All persons present during the encounter consented to its use. documented in this encounter Nursing Notes * Mikki Bentley CMA - 01/07/2025 2:47 PM EDT Examination Room: 11 Name: Jesus Jose Date of : (1945). Reason for Visit: f/u Interim hospitalizations: denies Problems/Concerns: Blood sugar has been high Chest pain/SOB: denies [facility] Discussed: Yes [facility] is a way you can [...] 1:30 PM EDT [facility] [address] [place] [address] Peggy De RN [address] [facility] [place] [address] 03/12/2025 3:30 PM EDT Home Visit Care at Home [address] [place] [address] Betina Jacob PA-C [address] [place] [address] 03/18/2025 11:15 AM EDT Office Visit Urology, [facility] [address] [place] [address] Kalpesh Funes MD [address] [place] [address] 04/08/2025 7:05 AM EDT Laboratory Lab Mobile Phlebotomy [address] [address] [facility] Mobile Home Draw [address] [place], [place] [address] Health Maintenance Due Date Last Done Comments Alpha-1 Antitrypsin 1963 Diabetic Foot Exam 03/27/2021 03/27/2020, 08/23/2018 Diabetic Eye Exam 11/01/2023 11/01/2022, , 11/01/2022, Additional history exists Albumin/Creatinine Ratio 12/27/2023 023, 03/08/2019, 04/09/2014 HbA1c 11/23/2024 05/23/2024, 03/24, 12/26/2022, Additional history exists *NEPHROLOGY REFERRAL DUE TO RESISTANT HTN 12/01/2024 CKD PHOS USE SMARTSET 64988 12/07/202411/23, 12/26/2022, 06/21/2021 Adult Wellness Visit 03/06/2025 03/06/2024, 11/02/19 23 O2 ASSESSMENT COMPLETED IN PAST YEAR FOR COPD 04/12/2025 04/12/2024 GFR 07/05/2025 01/02/2025, 10/25, 11/07/2024, Additional history exists Depression Screening 08/06/2025 08/06/2024 CKD HGB USE SMARTSET 99900 01/02/202601/02, 01/02/2025, 11/21/2024, Additional history exists DTap/Tdap [...] this encounter Medical Devices Implanted Type Area Electronic Scale Subassembler Device Identifier Shelf Expiration Date Model / Serial / Lot Lens Intraoc 22.5 - [id number] - [id number] Implanted:Qty: 1 on 05/22/2018 by Jasbir Maurer MD at OR [facility] Right: Eye [employer] 11/22/2022 [id number] / [id number] / [id number] Lens Intraoc 21.0 - [id number] - [id number] Implanted:Qty: 1 on 06/05/2018 by Jasbir Maurer MD at OR [facility] Left: Eye [employer] 12/20/2022 [id number] / [id number] / Duraclip 16mm Xlg Repostn - [id number] Implanted:Qty: 1 on 04/12/2024 by Edilberto Lujan MD at OR [facility] CONMED NACHO [id number] 12/08/2024 [id number] / / [id number] Duraclip 16mm Xlg Repostn - [id number] Implanted:Qty: 1 on 04/12/2024 by Edilberto Lujan MD at OR [facility] [employer] [id number] 12/08/2024 [id number] / / [id number] Duraclip 16mm Xlg Repostn - [id number] Implanted:Qty: 1 on 04/12/2024 by Edilberto Lujan MD at OR [facility] [employer]O [id number] 12/08/2024 [id number] / / [id number] documented as of this encounter Visit Diagnoses [...] diabetic peripheral angiopathy without gangrene, unspecified whether retirement insulin use (HCC) Coronary artery disease involving augustine coronary artery of augustine heart without angina pectoris Hypertensive heart and [...] mitral valve regurgitation Coronary artery disease involving augustine coronary artery of augustine heart without angina pectoris Paroxysmal atrial fibrillation [...] mitral valve regurgitation Coronary artery disease involving augustine coronary artery of augustine heart without angina pectoris Stage 3b chronic [...] infection Acute apical periodontitis of pulpal origin Chronic heart failure with preserved ejection fraction (HFpEF) (HCC)- Primary Nonrheumatic mitral valve regurgitation Nonrheumatic aortic valve insufficiency Aortic valve disorders documented in this encounter Advance Directives * [...] Healthcare Agent Relationshi p Communication Ashley Meek [facility] Health Care Repr esentative (appointed verbally by patient or by statute hierarchy) Care Teams Audit Mgr Relationship Specialty Start Date End Date Michael Hinton MD [address] [facility] [place] [address] PCP - General Family Medicine 08/07/17 documented as of this encounter
--- OUTSIDE RECORDS SUMMARY | 2025-03-05 02:17 | External Medical Summary | Summary of Care ---
Author Name Unknown Organization [facility] Address [address] [place] [address] Phone [phone] Care Team Providers Care Electronic Assembler Group Leader Name Role Phone Michael Hinton MD Primary Care Provider [phone] Reason for Visit * Reason Onset Date Comments Advice 01/07/2025 Encounter Details Date Type Department Care Team (Late st Contact Info) Description 01/07/2025 Telephone Family Practice [facility] [address] [place] [address] Eduardo Groves MD [address] [place] [address] Advice Allergies Active Allergy Reactions Criticality Noted Date Comments Fabiano Inhibitors Cough 06/09/2017 Carbidopa High 08/30/2024 Other Reaction(s): constipation Carbidopa W-Levodopa 03/17/2021 Constipation Levodopa High 08/30/2024 Other Reaction(s): constipation Nsaids Rash 05/17/2018 Contraindicated per milling/polishing operator documented as of this encounter (statuses [...] mitral valve regurgitation,C oronary artery disease involving holy cross coronary artery [...] daily . PLEASE SCHEDULE FOLLOW UP APPOINTMENT. [phone] Capsule 1 5 10:05 AM EST 12/09/19 25 Active Chlorhexidine Gluconate 0.12 % Mouth/Throat Solution (Peridex) Swish and spit 15 mL in the morning and 15 mL before bedtime. 473 mL 5 12/17/19 Active Additional Information Patient not taking.Reported on 01/07/2025 Nystatin 639546 UNIT/GM External Cream Apply topically to affected area 2 times a day. To affacted area for two weeks. 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 I called in Agapito Montes to replace the anbesol. [facility] Please let know Thanks, * Telephone Encounter [...] [facility] [address] [place] [address] Peggy De RN [address] [place] [address] 03/12/2025 3:30 PM EDT Home Visit Care at Home [address] [place] [address] Betina Jacob PA-C [address] [place], [place] [id number] 03/18/2025 11:15 AM EDT Office Visit Urology, [facility] [address] [place] [address] Kalpesh Funes MD [address] [place] [address] 04/08/2025 7:05 AM EDT Laboratory Lab Mobile Phlebotomy [place] [address] [place] [address] [address] [facility] Mobile Home Draw [facility] [place] [address] Health Maintenance Due Date Last Done Comments Alpha-1 Antitrypsin 1963 Diabetic Foot Exam 03/27/2021 03/27/2020, 08/23/2018 Diabetic Eye Exam 11/01/2023 11/01/2022, , 11/01/2022, Additional history exists Albumin/Creatinine Ratio 12/27/2023 023, 03/08/2019, 04/09/2014 HbA1c 11/23/2024 05/23/2024, 03/24, 12/26/2022, Additional history exists *NEPHROLOGY REFERRAL DUE TO RESISTANT HTN 12/01/2024 CKD PHOS USE SMARTSET 22487 12/07/202411/23, 12/26/2022, 06/21/2021 Adult Wellness Visit 03/06/2025 03/06/2024, 11/02/19 23 O2 ASSESSMENT COMPLETED IN PAST YEAR FOR COPD 04/12/2025 04/12/2024 GFR 07/05/2025 01/02/2025, 10/25, 11/07/2024, Additional history exists Depression Screening 08/06/2025 08/06/2024 CKD HGB USE SMARTSET 78184 01/02/202601/02, 01/02/2025, 11/21/2024, Additional history exists DTap/Tdap [...] this encounter Medical Devices Implanted Type Area Standard Machine Stitcher Device Identifier Shelf Expiration Date Model / Serial / Lot Lens Intraoc 22.5 - [id number] - [id number] Implanted:Qty: 1 on 05/22/2018 by Jasbir Maurer MD at OR [facility] Right: Eye [employer]OMB 11/22/2022 [id number] / [id number] / [id number] Lens Intraoc 21.0 - [id number] - [id number] Implanted:Qty: 1 on 06/05/2018 by Jasbir Maurer MD at OR [facility] Left: Eye BAUSCH [employer] LOMB 12/20/2022 [id number] / [id number] / Duraclip 16mm Xlg Repostn - [id number] Implanted:Qty: 1 on 04/12/2024 by Edilberto Lujan MD at OR [facility] [employer] [id number] 12/08/2024 [id number] / / [id number] Duraclip 16mm Xlg Repostn - [id number] Implanted:Qty: 1 on 04/12/2024 by Edilberto Lujan MD at OR [facility] [employer]ACH[employer] [id number] 12/08/2024 [id number] / / [id number] Duraclip 16mm Xlg Repostn - [id number] Implanted:Qty: 1 on 04/12/2024 by Edilberto Lujan MD at OR [facility] [employer] [id number] 12/08/2024 [id number] / / [id number] documented as of this encounter Advance Directives [...] patient or by statute hierarchy) Care Teams Electronic Assembler Group Leader Relationship Specialty Start Date End Date Michael Hinton MD [address] [place] [address] PCP - General Family Medicine 08/07/17 documented as of this encounter
--- OUTSIDE RECORDS SUMMARY | 2025-03-05 02:17 | External Medical Summary | Summary of Care ---
Author Name Unknown Organization [facility] Address [address] [place] [address] Phone [phone] Care Team Providers Care Roll Builder Name Role Phone Michael Hinton MD Primary Care Provider [phone] Reason for Visit * Reason Onset Date Comments Order Request 01/08/2025 Encounter Details Date Type Department Care Team (Late st Contact Info) Description 01/08/2025 Telephone Family Practice [facility] [address] [facility] [place] [address] Michael Hinton MD [address] [facility] [place] [address] Order Request Allergies Active Allergy Reactions Criticality Noted Date Comments Fabaino Inhibitors Cough 06/09/2017 Carbidopa High 08/30/2024 Other Reaction(s): constipation Carbidopa W-Levodopa 03/17/2021 Constipation Levodopa High 08/30/2024 Other Reaction(s): constipation Nsaids Rash 05/17/2018 Contraindicated per soubrette documented as of this encounter (statuses as [...] mitral valve regurgitation,Co ronary artery disease involving [place] coronary artery of ute mountain heart without angina pectoris,Stage 3b chronic kidney [...] daily . PLEASE SCHEDULE FOLLOW UP APPOINTMENT. [phone] Capsule 1 12/11/2024 10:05 AM EST 12/09/19 25 Active Chlorhexidine Gluconate 0.12 % Mouth/Throat Solution (Peridex) Swish and spit 15 mL in the morning and 15 mL before bedtime. 473 mL 5 12/17/19 25 Active Additional Information Patient not taking.Reported on 01/07/2025 Nystatin 190936 UNIT/GM External Cream Apply topically to affected area 2 times a day. To affacted area for two weeks. 30 g 2 12/17/19 25 Active Magic Swizzle (Lidocaine-Benad ryl-Maalox) oral solution Swish and spit 15 mL 2 times a day as needed (oral sores or pain). 300 mL 1 01/08/20 25 Active OneTouch Verio In Vitro Strip (Glucose Blood)Indication s:Type 2 diabetes mellitus with hemoglobin A1c goal of less than 8.0% (HCC) Use up to 4 times a day E11.9 400 Strip 3 01/09/20 25 Active OneTouch Delica Lancets 33GIndications:T ype 2 diabetes mellitus with hemoglobin A1c goal of less than 8.0% (HCC) Use up to 4 times a day 400 Each 3 01/09/20 25 Active D-Care Glucometer w/Device Kit Use as directed. 1 Kit 01/09/20 25 Active Glucose Blood (ONETOUCH VERIO) STRPIndications: Type 2 diabetes mellitus with hemoglobin A1c goal of less than 8.0% (HCC) Use up to 4 times a day E11.9 400 Strip 3 08/29/20 18 025 Discontin ued(Refil l) ONETOUCH DELICA LANCETS 33G MISCIndications: Type 2 diabetes mellitus with hemoglobin A1c goal of less than 8.0% (HCC) Use up to 4 times a day 400 Each 3 08/29/20 18 025 Discontin ued(Refil l) documented as of [...] have staff contact office to notify of [facility] recommendation, possibly consider d.c maxzide and [...] anemia in Aug with drop to 4.3. [facility] now monitoring counts weekly. Pt very pale [...] (09/01/2024): Follows with Dr Shannon Zhang in [place] via telemed for PD Assessment & Plan [...] knees 03/21/2018 Coronary artery disease invo lving [place] mountain coronary artery of [place] heart without angina pectoris 03/21/2018 Assessment & [...] mRNA, LNP-s, No Pre serve, 2-Dose Series ([employer]ock) 11/03/2021,12/19/2020,11/28/2020 Covid-19 Ad26, Single Dose ([employer]Plug/J&alike) 12/19/2020,11/28/2020 DTaP Dipth/Tet/Acell Pertussis (Infanrix), Peds 10/24/2019 [...] No 03/07/2024 Does the household have a [facility] source [facility] income? 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 Orders will need sent to [facility] once signed. * Telephone Encounter - Kye Araya OSA - 01/08/2025 9:30 AM EDT Jami calling from [facility] stating patient needs a new One Touch Glucose monitor, lancets and strips-his monitor stopped working. Patients is also wondering if he is eligible for Dexcomor Pako so she doesn't have to prick his finger? [facility] documented in this encounter Plan of Treatment Upcoming Encounters Date Type Department Care Team (Late st Contact Info) Description 01/09/2025 9:45 AM EDT Scheduled Telephone [facility], [facility] [address] [facility] [place] [address] [facility], Nurse [facility] [address] [place] [address] 01/22/2025 1:30 PM EDT Home Visit [facility], [facility] [address] [place] [address] Peggy De RN [address] [place] [address] 03/12/2025 3:30 PM EDT Home Visit Care at Home [address] [place] [address] Betina Jacob PA-C [address] [place] [address] 03/18/2025 11:15 AM EDT Office Visit Urology, [facility] [address] [place] [id number] Kalpesh Funes MD [address] [place] [address] 04/08/2025 7:05 AM EDT Laboratory Lab Mobile Phlebotomy [place] [address] [place] [address] [facility] Mobile Home Draw [address] [place] [address] Health Maintenance Due Date Last Done Comments Alpha-1 Antitrypsin 1962 Diabetic Foot Exam 03/27/2021 03/27/2020, 08/23/2018 Diabetic Eye Exam 11/01/2023 11/01/2022, , 11/01/2022, Additional history exists Albumin/Creatinine Ratio 12/27/2023 023, 03/08/2019, 04/09/2014 HbA1c 11/23/2024 05/23/2024, 03/24, 12/26/2022, Additional history exists *NEPHROLOGY REFERRAL DUE TO RESISTANT HTN 12/01/2024 CKD PHOS USE SMARTSET 96286 12/07/202411/23, 12/26/2022, 06/21/2021 Adult Wellness Visit 03/06/2025 03/06/2024, 11/02/19 23 O2 ASSESSMENT COMPLETED IN PAST YEAR FOR COPD 04/12/2025 04/12/2024 GFR 07/05/2025 01/02/2025, 10/25, 11/07/2024, Additional history exists Depression Screening 08/06/2025 08/06/2024 CKD HGB USE SMARTSET 17451 01/02/202601/02, 01/02/2025, 11/21/2024, Additional history exists DTap/Tdap [...] this encounter Medical Devices Implanted Type Area Public Health Physician Device Identifier Shelf Expiration Date Model / Serial / Lot Lens Intraoc 22.5 - [id number] - [id number] Implanted:Qty: 1 on 05/22/2018 by Jasbir Maurer MD at OR [facility] Right: Eye [employer]CH [employer] LOMB 11/22/2022 [id number] / [id number] / [id number] Lens Intraoc 21.0 - [id number] - [id number] Implanted:Qty: 1 on 06/05/2018 by Jasbir Maurer MD at OR [facility] Left: Eye BAUSCH [employer] LOMB 12/20/2022 [id number] / [id number] / Duraclip 16mm Xlg Repostn - [id number] Implanted:Qty: 1 on 04/12/2024 by Edilberto Lujan MD at OR [facility] [employer] [id number] 12/08/2024 [id number] / / [id number] Duraclip 16mm Xlg Repostn - [id number] Implanted:Qty: 1 on 04/12/2024 by Edilberto Lujan MD at OR [facility] [employer] [id number] 12/08/2024 [id number] / / [id number] Duraclip 16mm Xlg Repostn - [id number] Implanted:Qty: 1 on 04/12/2024 by Edilberto Lujan MD at OR 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[facility]) Paroxysmal atrial fibrillation (HCC) Atrial fibrillation Paroxysmal atrial fibrillation (HCC)- Primary Atrial fibrillation 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 Type 2 diabetes mellitus with diabetic peripheral angiopathy without gangrene, unspecified whether longwall shearer operator insulin use ([facility]) Coronary artery disease involving [place] coronary artery of [place] heart without angina pectoris Hypertensive heart and [...] mitral valve regurgitation Coronary artery disease involving [place] coronary artery of [place] heart without angina pectoris Paroxysmal atrial fibrillation [...] mitral valve regurgitation Coronary artery disease involving [place] coronary artery of [place] heart without angina pectoris Stage 3b chronic [...] A1c goal of less than 8.0% (HCC) documented in this encounter Advance Directives * [...] patient or by statute hierarchy) Care Teams Roll Builder Relationship Specialty Start Date End Date Michael Hinton MD [address] [place] [address] PCP - General Family Medicine 08/07/17 documented as of this encounter
--- OUTSIDE RECORDS SUMMARY | 2025-03-05 02:18 | External Medical Summary ---
Author Name Unknown Address Unknown Organization K0G:[facility] [place] [address] [place] [address] Laboratory Report Ordering Provider Test Date Status ALIZA ABARCA 01/02/2025 09:45:00 Final Observation Date Value Abnormality Reference (Units ) Status SYNC LEUKOCYTES IN BLOOD BY AUTOMATED COUNT 01/02/2025 09:45:00 5.90 4.00-10.80 (K/uL) Final Neutrophils/100 leukocytes in Blood by Manual count 01/02/2025 09:45:00 73.0 40.0-75.0 (%) Final Lymphocytes/100 leukocytes in Blood by Manual count 01/02/2025 09:45:00 20.0 18.0-42.0 (%) Final Monocytes/100 leukocytes in Blood by Manual count 01/02/2025 09:45:00 7.0 1.0-11.0 (%) Final Neutrophils [#/volume] in Blood by Manual count 01/02/2025 09:45:00 4.31 1.80-7.70 (K/uL) Final Lymphocytes [#/volume] in Blood by Manual count 01/02/2025 09:45:00 1.18 1.00-4.80 (K/uL) Final Monocytes [#/volume] in Blood by Manual count 01/02/2025 09:45:00 0.41 0.00-1.10 (K/uL) Final Nucleated erythrocytes/100 leukocytes [Ratio] in Blood by Automated count 01/02/2025 09:45:00 Final Performing Location [facility] [place] [address] [place] [address]
--- OUTSIDE RECORDS SUMMARY | 2025-03-05 02:18 | External Medical Summary | Summary of Care ---
Author Name Unknown Organization [facility] Address [address] [place] [address] Phone [phone] Care Team Providers Care Transitional Living Specialist Name Role Phone Michael Hinton MD Primary Care Provider [phone] Reason for Visit * Reason Onset Date Comments [facility]: Maintenance 12/28/2024 Encounter Details Date Type Department Care Team (Late st Contact Info) Description 12/28/2024 9:30 AM EST Scheduled Telephone [facility], [facility] [address] [place] [address] [facility], Nurse [facility] [address] [place] [address] Allergies Active Allergy Reactions Criticality Noted Date Comments Fabiano Inhibitors Cough 06/09/2017 Carbidopa High 08/30/2024 Other Reaction(s): constipation Carbidopa W-Levodopa 03/17/2021 Constipation Levodopa High 08/30/2024 Other Reaction(s): constipation Nsaids Rash 05/17/2018 Contraindicated per circle shear operator documented as of this encounter (statuses as of 12/28/2024) Medications Glucose Blood (ONETOUCH VERIO) STRPIndications: Type [...] before bedtime. 90 Capsule 3 4 Active Metoprolol Succinate ER 50 MG Oral Tablet Extended Release 24 Hour (Toprol XL) Take 1 Tablet by mouth in the morning. 90 Tablet 3 11/19/2024 5:23 PM EST 4 Active Potassium Chloride 20 MEQ/15ML (10%) Oral SolutionIndicati ons:Chronic diastolic 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 (HCC) Take 15 mL by mouth in the morning. 1500 mL 3 08/27/2024 11:54 AM EST 4 Active Dificid 200 MG Oral Tablet (Fidaxomicin) Take 1 Tablet by mouth every other day. 35 Tablet 4 Active Colestipol HCl 1 GM Oral Tablet (Colestid) take 2 tablets by mouth with supper and 2 tablets by mouth at bedtime. Adjust as needed. 360 Tablet 3 12/04/2024 12:24 PM EST 4 Active Spironolactone 25 MG Oral Tablet [...] mitral valve regurgitation,Co ronary artery disease involving [place] coronary artery of [place] heart without angina pectoris,Stage 3b chronic kidney disease (HCC) Take 3 Tablets by mouth once a day on Monday, Monday, and Monday only AND 2 Tablets once a day on Monday, , Monday, and Monday only. 5 Active Lidocaine 5 % External Patch (Lidoderm) Place 1 Patch over 12 hours topically on the skin daily. 30 Patch 5 Active Amantadine HCl 100 MG Oral Capsule (Symmetrel) Take 1 capsule (100 mg total) by mouth daily . PLEASE SCHEDULE FOLLOW UP APPOINTMENT. [phone] 90 Capsule 1 12/11/2024 10:05 AM EST 5 Active Anbesol 10 % Mouth/Throat Gel (Benzocaine) Apply topically to affected area 3 times a day as needed (oral canker sore pain). 9 g 2 5 Active Chlorhexidine Gluconate 0.12 % Mouth/Throat Solution (Peridex) Swish and spit 15 mL in the morning and 15 mL before bedtime. 473 mL 5 5 Active Nystatin 581304 UNIT/GM External Cream Apply topically to affected area 2 times a day. To affacted area for two weeks. 30 g 2 5 Active documented as of this encounter (statuses as of 12/28/2024) Active Problems Problem Noted Date Diagnosed Date [...] have staff contact office to notify of [facility] recommendation, possibly consider d.c maxzide [...] Plan (08/08/2024 3:17 PM EDT): Follows with [facility] hematology Routine labs monitored by hem/onc Labs pending today Iron infusion 08/02 Blood transfusion 08/05 Assessment & Plan (07/15/2024 6:05 PM EDT): Follows with [facility] hematology Routine labs monitored by hem/onc Update CBC next week Assessment & Plan (03/13/2024 11:24 AM EDT): Follows with [facility] hematology Routine labs monitored by hem/onc Update CBC tomorrow PRBC transfusions 01/2024, 02/2024 Assessment & Plan (10/17/2023 9:43 AM EST): Followed closely by [facility] hematology. No identified cause of HUNTER. Weekly labs monitored by hem/onc. Most recent hgb 8.7 Assessment & Plan (05/02/2023 1:04 PM EDT): Followed closely by [facility] hematology. [...] anemia in Aug with drop to 4.3. [facility] now monitoring counts weekly. Pt very pale [...] (09/01/2024): Follows with Dr Shannon Zhang in [place] via telemed for PD Assessment & Plan [...] [place] heart without angina pectoris 03/21/2018 Assessment & [...] as of this encounter (statuses as of 12/28/2024) Resolved Problems Problem Noted Date Diagnosed Date [...] as of this encounter (statuses as of 12/28/2024) Immunizations Name Administration Dates Next Due COVID-19 mRNA, LNP-s, No Pre serve, 2-Dose Series (SoSocio) 11/03/2021,12/19/2020,11/28/2020 Covid-19 Ad26, Single Dose (Skytide/J&J) 12/19/2020,11/28/2020 DTaP Dipth/Tet/Acell Pertussis (Infanrix), Peds 10/24/2019 [...] 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 Spoke with Liliam-verified pt name and . She reports pt has improved greatly. Reports weightis down this morning to 155lbs. Reports that swelling has decreased in LE and SOB is at baseline. She denies any acute needs at this time. Reinforced low Na diet and fluid restriction, reviewed s/s of fluid rentention and when to call [facility]. David Russell RN documented in this encounter Plan of Treatment Upcoming Encounters Date Type Department Care Team (Late st Contact Info) Description 01/02/2025 7:10 AM EDT Laboratory Lab Mobile Phlebotomy [place] [id number] [place] [address] [facility] Mobile Home Draw [facility] [place] [address] 01/07/2025 3:00 PM EDT Office Visit Cardiology, [facility] [address] [place] [address] Dominick Benz DO [address] [place] [address] 01/22/2025 1:30 PM EDT Home Visit [facility], [facility] [address] [place] [address] Peggy De, RN [address] [place] [address] 03/12/2025 3:30 PM EDT Home Visit Care at Home [address] [place], [place] [id number] Betina Jacob PA-C [address], [place] [id number] 03/18/2025 11:15 AM EDT Office Visit Urology, [facility] [address] [place] [address] Kalpesh Funes MD [address] [place] [address] Health Maintenance Due Date Last Done Comments Alpha-1 Antitrypsin 1963 Diabetic Foot Exam 03/27/2021 03/27/2020, 08/23/2018 Diabetic Eye Exam 11/01/2023 11/01/2022, , 11/01/2022, Additional history exists Albumin/Creatinine Ratio 12/27/2023 023, 03/08/2019, 04/09/2014 HbA1c 11/23/2024 05/23/2024, 03/24, 12/26/2022, Additional history exists *NEPHROLOGY REFERRAL DUE TO RESISTANT HTN 12/01/2024 CKD PHOS USE SMARTSET 33704 12/07/202411/23, 12/26/2022, 06/21/2021 Adult Wellness Visit 03/06/2025 03/06/2024, 11/02/19 23 O2 ASSESSMENT COMPLETED IN PAST YEAR FOR COPD 04/12/2025 04/12/2024 GFR 05/21/2025 11/21/2024, 10/23, 10/31/2024, Additional history exists Depression Screening 08/06/2025 08/06/2024 CKD HGB USE SMARTSET 33915 11/21/202511/21, 11/21/2024, 11/07/2024, Additional history exists DTap/Tdap Vaccines (4 - [...] this encounter Medical Devices Implanted Type Area Aircraft Avionics Technician Device Identifier Shelf Expiration Date Model / Serial / Lot Lens Intraoc 22.5 - [id number] - [id number] Implanted:Qty: 1 on 05/22/2018 by Jasbir Maurer MD at OR [facility] Right: Eye [employer]CH [employer]OMB 11/22/2022 [id number] / [id number] / [id number] Lens Intraoc 21.0 - [id number] - [id number] Implanted:Qty: 1 on 06/05/2018 by Jasbir Maurer MD at OR [facility] Left: Eye BAUSCH & LOMB 12/20/2022 [id number] / [id number] / Duraclip 16mm Xlg Repostn - [id number] Implanted:Qty: 1 on 04/12/2024 by Edilberto Lujan MD at OR [facility] [employer] NACHO [id number] 12/08/2024 [id number] / / [id number] Duraclip 16mm Xlg Repostn - [id number] Implanted:Qty: 1 on 04/12/2024 by Edilberto Lujan MD at OR [facility] [employer]ACH[employer] [id number] 12/08/2024 [id number] / / [id number] Duraclip 16mm Xlg Repostn - [id number] Implanted:Qty: 1 on 04/12/2024 by Edilberto Lujan MD at OR [facility] [employer]O [id number] 12/08/2024 [id number] / / [id number] documented as of this encounter Advance Directives [...] patient or by statute hierarchy) Care Teams Transitional Living Specialist Relationship Specialty Start Date End Date Michael Hinton MD [address] [place] [address] PCP - General Family Medicine 08/07/17 documented as of this encounter
--- OUTSIDE RECORDS SUMMARY | 2025-03-05 02:18 | External Medical Summary ---
Author Name Unknown Address Unknown Organization K01:[facility]ATORY [facility] - [address] [facility] [address] Laboratory Report Ordering Provider Test Date Status ALIZA ABARCA 01/02/2025 09:45:00 Final Observation Date Value Abnormality Reference (Units ) Status Iron 01/02/2025 09:45:00 113 45-176 (ug /dL) Final Iron-binding capacity 01/02/2025 09:45:00 272 250-425 (ug/dL) Final Transferrin Sat % 01/02/2025 09:45:00 42 15 -55 (%) Final Performing Location [facility] - [address] [facility] [address]
--- OUTSIDE RECORDS SUMMARY | 2025-03-05 02:18 | External Medical Summary | Summary of Care ---
Author Name Unknown Organization [facility] Address [address] [place] [address] Phone [phone] Care Team Providers Care Neuroradiologist Name Role Phone Michael Hinton MD Primary Care Provider [phone] Encounter Details Date Type Department Care Team (Late st Contact Info) Description 12/25/2024 3:00 PM EST [facility] [address] [facility] [place] [address] Peggy De, RN [address] [place] [place] [address] Allergies Active Allergy Reactions Criticality Noted Date Comments Fabiano Inhibitors Cough 06/09/2017 Carbidopa High 08/30/2024 Other Reaction(s): constipation Carbidopa W-Levodopa 03/17/2021 Constipation Levodopa High 08/30/2024 Other Reaction(s): constipation Nsaids Rash 05/17/2018 Contraindicated per log carrier operator documented as of this encounter (statuses as of 01/03/2025) Medications Glucose Blood (ONETOUCH VERIO) STRPIndications: Type [...] mitral valve regurgitation,Co ronary artery disease involving [place] coronary artery of [...] daily . PLEASE SCHEDULE FOLLOW UP APPOINTMENT. [phone] 90 Capsule 1 12/11/2024 10:05 AM EST 5 Active Anbesol 10 % Mouth/Throat Gel (Benzocaine) Apply topically to affected area 3 times a day as needed (oral canker sore pain). 9 g 2 5 Active Chlorhexidine Gluconate 0.12 % Mouth/Throat Solution (Peridex) Swish and spit 15 mL in the morning and 15 mL before bedtime. 473 mL 5 5 Active Nystatin 217098 UNIT/GM External Cream Apply topically to affected area 2 times a day. To affacted area for two weeks. 30 g 2 5 Active documented as of this encounter (statuses as of 01/03/2025) Active Problems Problem Noted Date Diagnosed Date [...] have staff contact office to notify of [facility] recommendation, possibly consider d.c maxzide and [...] (08/08/2024 3:17 PM EDT): Follows with [facility] hematology Routine labs monitored by hem/onc Labs pending today Iron infusion 08/02 Blood transfusion 08/05 Assessment & Plan (07/15/2024 6:05 PM EDT): Follows with [facility] hematology Routine labs monitored by hem/onc Update CBC next week Assessment & Plan (03/13/2024 11:24 AM EDT): Follows with [facility] hematology Routine labs monitored by hem/onc Update CBC tomorrow PRBC transfusions 01/2024, 02/2024 Assessment & Plan (10/17/2023 9:43 AM EST): Followed closely by [facility] hematology. No identified cause of HUNTER. Weekly labs monitored by hem/onc. Most recent hgb 8.7 Assessment & Plan (05/02/2023 1:04 PM EDT): Follow[facility] closely by [facility] [...] (09/01/2024): Follows with Dr Shannon Zhang in [place] via telemed for PD Assessment & Plan [...] of [place] heart without angina pectoris 03/21/2018 Assessment [...] as of this encounter (statuses as of 01/03/2025) Resolved Problems Problem Noted Date Diagnosed Date [...] scanned document from 11/13/[address] [facility]. 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 Not on file Not on fi le Not on file Not on file Not on file Not on file documented as of this encounter Last Filed Vital Signs Vital Sign Reading Time Taken Comments Blood Pressure 152/74 12/25/2024 2:07 PM EST Pulse 75 12/25/2024 2:07 PM EST Temperature 36.4 °C (97.6 °F) 12/25/2024 2:07 PM ES T Respiratory Rate - - Oxygen Saturation 98% 12/25/2024 2:07 PM EST Inhaled Oxygen Concentration - - Weight - - Height - - Body Mass Index - - documented in this encounter Progress Notes * Peggy De, RN - 12/25/2024 2:03 PM EST Current Concerns: Pt seen for return RNCM visit Has had a weight increase from 156 lbs to 165.5 lbs - has gained 9.5 lbs in 8 days Pt does feel he is retaining more fluid He states he did miss his fluid pills a couple days this past week - gave to him and then he sets them down and forgets about them and sometimes refuses to take them He is having increased LE edema Going to start DTP tomorrow as it is later in the day He is using compression pumps still Does not have compression socks on today Goes to wound clinic later this month - having molds done to get specialized footwear Physical Exam: Physical Exam Constitutional: General: He is not in acute distress. Cardiovascular: Rate and Rhythm: Normal rate. Rhythm irregular. Pulses: Normal pulses. Heart sounds: Normal heart sounds. Pulmonary: Breath sounds: Rales (faint crackle of RLL) present. Musculoskeletal: Right lower leg: Edema (+2) present. Left lower leg: Edema (+1) present. Skin: General: Skin is warm and dry. Neurological: Mental Status: He is alert. Mental status is at baseline. Review of Systems: Care Plan Goal Progress: Patient will have improved cardiac output. (Not Progressing) Start: 07/27/24 Expected End: 01/17/25 Goal Note Was doing well with progression of improved cardiac output but then refused to take diuretics for several day, leading to need to initiate DTP Patient will achieve & maintain effective breathing pattern. (Progressing) Start: 07/27/24 Expected End: 01/17/25 Orders Placed: No orders of the defined types were placed in this encounter. Medications Given: Care Gaps: Care Gaps Care gaps closed this contact: Education;Diuretic titration protocol started;Medications;Plan of Care (POC) (01/03/25901) Type of education: Clinical/disease (01/03/25901) Type of medication care gap: Medication adherence (01/03/25901) Type of plan of care (POC) care gap: Adjustment of plan of care (POC) and/or Integrated Care Plan (ICP);Education and review of exacerbation plan (01/03/25901) documented in this encounter Plan of Treatment Upcoming Encounters Date Type Department Care Team (Late st Contact Info) Description 01/07/2025 3:00 PM EDT Office Visit Cardiology, [facility] [address] [place] [address] Dominick Benz DO [address] [place] [address] 01/22/2025 1:30 PM EDT Home Visit Ej at [facility] [address] [place] [address] Peggy De RN [address] [place] [address] 03/12/2025 3:30 PM EDT Home Visit Care at Home [address] [place] [id number] Betina Jacob PA-C [address] [place] [address] 03/18/2025 11:15 AM EDT Office Visit Urology, [facility] [address] [facility] [place] [address] Kalpesh Funes MD [address] [place] [address] Health Maintenance Due Date Last Done Comments Alpha-1 Antitrypsin 1963 Diabetic Foot Exam 03/27/2021 03/27/2020, 08/23/2018 Diabetic Eye Exam 11/01/2023 11/01/2022, , 11/01/2022, Additional history exists Albumin/Creatinine Ratio 12/27/2023 023, 03/08/2019, 04/09/2014 HbA1c 11/23/2024 05/23/2024, 03/24, 12/26/2022, Additional history exists *NEPHROLOGY REFERRAL DUE TO RESISTANT HTN 12/01/2024 CKD PHOS USE SMARTSET 52265 12/07/202411/23, 12/26/2022, 06/21/2021 Adult Wellness Visit 03/06/2025 03/06/2024, 11/02/19 23 O2 ASSESSMENT COMPLETED IN PAST YEAR FOR COPD 04/12/2025 04/12/2024 GFR 07/05/2025 01/02/2025, 10/25, 11/07/2024, Additional history exists Depression Screening 08/06/2025 08/06/2024 CKD HGB USE SMARTSET 77203 01/02/202601/02, 01/02/2025, 11/21/2024, Additional history exists DTap/Tdap [...] encounter Medical Devices Implanted Type Area Continuous Dryout Operator Device Identifier Shelf Expiration Date Model / Serial / Lot Lens Intraoc 22.5 - [id number] - [id number] Implanted:Qty: 1 on 05/22/2018 by Jasbir Maurer MD at OR [facility] Right: Eye BAUSCH [employer] LOMB 11/22/2022 [id number] / [id number] / [id number] Lens Intraoc 21.0 - [id number] - [id number] Implanted:Qty: 1 on 06/05/2018 by Jasbir Maurer MD at OR [facility] Left: Eye BAUSCH & LOMB 12/20/2022 [id number] / [id number] / Duraclip 16mm Xlg Repostn - [id number] Implanted:Qty: 1 on 04/12/2024 by Edilberto Lujan MD at OR [facility] [employer] NACHO [id number] 12/08/2024 [id number] / / [id number] Duraclip 16mm Xlg Repostn - [id number] Implanted:Qty: 1 on 04/12/2024 by Edilberto Lujan MD at OR [facility] [employer] [id number] 12/08/2024 [id number] / / [id number] Duraclip 16mm Xlg Repostn - [id number] Implanted:Qty: 1 on 04/12/2024 by Edilberto Lujan MD at OR [facility] [employer] [id number] 12/08/2024 [id number] / / [id number] documented as of this encounter Advance Directives [...] patient or by statute hierarchy) Care Teams Neuroradiologist Relationship Specialty Start Date End Date Michael Hinton MD [address] [place] [address] PCP - General Family Medicine 08/07/17 documented as of this encounter
--- OUTSIDE RECORDS SUMMARY | 2025-03-05 02:18 | External Medical Summary ---
Author Name Unknown Address Unknown Organization K01:LABORATORY C - [address] [place] [address] Laboratory Report Ordering Provider Test Date Status ALIZA ABARCA 01/02/2025 09:45:00 Final Observation Date Value Abnormality Reference (Units ) Status Ferritin 01/02/2025 09:45:00 407 Above high normal 30 -400 (ng/mL) Final Performing Location LABORATORY [facility] - [address] [place] [address]
--- OUTSIDE RECORDS SUMMARY | 2025-03-05 02:18 | External Medical Summary ---
Author Name Unknown Address Unknown Organization K0G:LABORATORY [place] [facility] - [address] [facility]. [place] [address] Laboratory Report Ordering Provider Test Date Status ALIZA ABARCA 01/02/2025 09:45:00 Final Observation Date Value Abnormality Reference (Units ) Status BUN 01/02/2025 09:45:00 39 Above high normal 6-20 (mg/dL) Final Creatinine 01/02/2025 09:45:00 2.0 Above high normal 0.6-1.2 (mg/dL) Final Glomerular filtration rate/1.73 sq M.predicted [Volume Rate/Area] in Serum, Plasma or Blood by Creatinine-based formula (CKD-EPI) 01/02/2025 09:45:00 33 Below low normal >=60 (mL/min) Final eGFR is calculated based on the CKD-EPI 2020 equation. Sodium 01/02/2025 09:45:00 141 135-146 (m mol/L) Final Potassium 01/02/2025 09:45:00 4.1 3.5-5.1 (m mol/L) Final Cl 01/02/2025 09:45:00 99 98-107 (mm ol/L) Final CO2 01/02/2025 09:45:00 29 22-32 (mmo l/L) Final Anion gap 01/02/2025 09:45:00 13 7-15 (mmol /L) Final Glucose 01/02/2025 09:45:00 259 Above high normal 70 -120 (mg/dL) Final Albumin 01/02/2025 09:45:00 4.1 3.8-5.0 (g /dL) Final AST (Aspartate aminotransferase) 01/02/2025 09:45:00 20 10-50 (U/L) Fin al Alk Phos 01/02/2025 09:45:00 230 Above high normal 35 -130 (U/L) Final Bilirubin, Total 01/02/2025 09:45:00 0.4 <=1 .2 (mg/dL) Final Calcium 01/02/2025 09:45:00 9.8 8.4-10.2 ( mg/dL) Final Protein 01/02/2025 09:45:00 6.4 6.0-8.3 (g /dL) Final ALT (Alanine aminotransferase) 01/02/2025 09:45:00 17 10-50 (U/L) Vinicio virk [facility] [address] [place] [address]
--- OUTSIDE RECORDS SUMMARY | 2025-03-05 02:18 | External Medical Summary ---
Author Name Unknown Address Unknown Organization K0G:LABORATORY [place] [facility] - [address] [place] [address] Laboratory Report Ordering Provider Test Date Status ALIZA ABARCA 01/02/2025 09:45:00 Final Observation Date Value Abnormality Reference (Units ) Status WBC, Total 01/02/2025 09:45:00 5.90 4.00-10.8 0 (K/uL) Final RBC 01/02/2025 09:45:00 3.53 4.50-5.25 (M/uL) Final Hemoglobin 01/02/2025 09:45:00 12.3 Below low normal 14 .0-16.8 (g/dL) Final HCT 01/02/2025 09:45:00 37.2 Below low normal 40. 0-48.4 (%) Final MCV 01/02/2025 09:45:00 105.4 82.0-99.5 (fL) Final MCH 01/02/2025 09:45:00 34.8 27.0-34.0 (pg) Final MCHC 01/02/2025 09:45:00 33.1 32.0-36.0 (g/dL) Final RDW 01/02/2025 09:45:00 16.0 11.5-15.5 (%) Final Platelets 01/02/2025 09:45:00 157 140-400 (K /uL) Final MPV 01/02/2025 09:45:00 10.1 6.6-11.1 ( fL) Final Performing Location [facility] [place] [facility] [address] [facility] [place] [address]
--- OUTSIDE RECORDS SUMMARY | 2025-03-05 02:19 | External Medical Summary | Summary of Care ---
Author Name Unknown Organization [facility] Address [address] [place] [address] Phone [phone] Care Team Providers Care Jack Setter Name Role Phone Michael Hinton MD Primary Care Provider [phone] Encounter Details Date Type Department Care Team (Late st Contact Info) Description 11/22/2024 Orders Only Lab Mobile Phlebotomy [facility] [address] [employer] [place] [address] Ronaldo Mcclellan MD [address] [place] [address] Anemia due to chronic blood loss* Allergies Active Allergy Reactions Criticality Noted Date Comments Fabiano Inhibitors Cough 06/09/2017 Carbidopa High 08/30/2024 Other Reaction(s): constipation Carbidopa W-Levodopa 03/17/2021 Constipation Levodopa High 08/30/2024 Other Reaction(s): constipation Nsaids Rash 05/17/2018 Contraindicated per whip sawyer documented as of this encounter (statuses as of 11/22/2024) Medications Glucose Blood (ONETOUCH VERIO) STRPIndications: Type [...] 3 11/04/2024 3:03 PM EST 4 Active Amantadine HCl 100 MG Oral Capsule (Symmetrel) Take 1 capsule (100 mg total) by mouth daily . 90 Capsule 1 09/12/2024 6:55 AM EST 4 Active Triamcinolone Acetonide 0.1 % [...] bedtime. Adjust as needed. 360 Tablet 3 09/11/2024 1:26 PM EST 4 Active Spironolactone 25 MG Oral Tablet (Aldactone) Take one-half Tablet by mouth in the morning. 45 Tablet 3 09/18/2024 11:58 AM EST 4 Active Dutasteride 0.5 MG Oral Capsule (Avodart) Take 1 Capsule by mouth in the morning. 90 Capsule 3 10/17/2024 5:00 PM EST 4 Active Atorvastatin Calcium 40 MG Oral Tablet (Lipitor)Indicat ions:Dyslipidemi a Take 1 Tablet by mouth in the morning. 90 Tablet 3 09/27/2024 4:44 PM EST 4 Active Empagliflozin 10 MG [...] mitral valve regurgitation,Co ronary artery disease involving [place] coronary artery of [place] heart without angina pectoris,Stage 3b chronic kidney disease (HCC) Take 3 Tablets by mouth once a day on Monday, Monday, and Monday only AND 2 Tablets once a day on Monday, , Monday, and Monday only. 5 Active Lidocaine 5 % External Patch (Lidoderm) Place 1 Patch over 12 hours topically on the skin daily. 30 Patch 5 Active documented as of this encounter (statuses as of 11/22/2024) Active Problems Problem Noted Date Diagnosed Date [...] [facility] recommendation, possibly consider dlucho maxzide and maximize [...] 3:17 PM EDT): Follows with [facility] hematology Routine labs monitored by hem/onc Labs pending today Iron infusion 08/02 Blood transfusion 08/05 Assessment & Plan (07/15/2024 6:05 PM EDT): Follows with [facility] hematology Routine labs monitored by hem/onc Update CBC next week Assessment & Plan (03/13/2024 11:24 AM EDT): Follows with [facility] hematology Routine labs monitored by hem/onc Update CBC tomorrow PRBC transfusions 01/2024, 02/2024 Assessment & Plan (10/17/2023 9:43 AM EST): Followed closely by [facility] hematology. No identified cause of HUNTER. Weekly labs monitored by hem/onc. Most recent hgb 8.7 Assessment & Plan (05/02/2023 1:04 PM EDT): Followed closely by [facility] hematology. No identified cause of HUNTER. Weekly [...] (09/01/2024): Follows with Dr Shannon Zhang in [place] via telemed for PD Assessment & Plan [...] knees 03/21/2018 Coronary artery disease invo lving [place] coronary artery of [place] heart without angina pectoris 03/21/2018 Assessment [...] as of this encounter (statuses as of 11/22/2024) Resolved Problems Problem Noted Date Diagnosed Date [...] (H) 09/09/2019 07:46 AM [facility] (H) 03/08/2019 07:14 AM ] Major [...] See scanned document from 11/13/2012 from [facility]. 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y [...] as of this encounter (statuses as of 11/22/2024) Immunizations Name Administration Dates Next Due COVID-19 mRNA, LNP-s, No Pre serve, 2-Dose Series (Inktank) 11/03/2021,12/19/2020,11/28/2020 Covid-19 Ad26, Single Dose (Yoka/J&J) 12/19/2020,11/28/2020 DTaP Dipth/Tet/Acell Pertussis (Infanrix), Peds 10/24/2019 [...] No 03/07/2024 Does the household have a [facility] source [facility] income? 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 [place] [address] [place] [address] Peggy De, RN [address] [place] [address] 01/03/2025 7:00 AM EDT Laboratory Lab Mobile Phlebotomy [facility] [address] [facility] [place] [address] [facility] Mobile Home Draw [address] [facility] [place] [address] 01/07/2025 3:00 PM EDT Office Visit Cardiology, [facility] [address] [place] [address] Dominick Benz DO [address] [place] [address] 03/12/2025 3:30 PM EDT Home Visit Care at Home [address] [place], [place] [phone] Betina Jacob PA-C [address] [place], [place] [id number] 03/18/2025 11:15 AM EDT Office Visit Urology, [facility] [address] [facility] [place] [address] Kalpesh Funes MD [address] [place] [address] Scheduled Orders Name Type Priority Associated Diagnoses Orde r Schedule CBC WITH WBC DIFFERENTIAL Lab Routine Anemia due to chronic blood loss Expected: 01/03/2025, Expires: 11/22/2025 COMPREHENSIVE METABOLIC PANEL Lab Routine Anemia due to chronic blood loss Expected: 01/03/2025, Expires: 11/22/2025 IRON SCREEN, INCLUDING TIBC Lab Routine Anemia due to chronic blood loss Expected: 01/03/2025, Expires: 11/22/2025 FERRITIN Lab Routine Anemia due to chronic blood loss Expected: 01/03/2025, Expires: 11/22/2025 Health Maintenance Due Date Last Done Comments Alpha-1 Antitrypsin 1963 Diabetic Foot Exam 03/27/2021 03/27/2020, 08/23/2018 Diabetic Eye Exam 11/01/2023 11/01/2022, , 11/01/2022, Additional history exists Albumin/Creatinine Ratio 12/27/2023 023, 03/08/2019, 04/09/2014 HbA1c 11/23/2024 05/23/2024, 03/24, 12/26/2022, Additional history exists CKD PHOS USE SMARTSET 31970 12/07/202411/23, 12/26/2022, 06/21/2021 Adult Wellness Visit 03/06/2025 03/06/2024, 11/02/19 23 O2 ASSESSMENT COMPLETED IN PAST YEAR FOR COPD 04/12/2025 04/12/2024 GFR 05/21/2025 11/21/2024, 10/23, 10/31/2024, Additional history exists Depression Screening 08/06/2025 08/06/2024 CKD HGB USE SMARTSET 39260 11/21/202511/21, 11/21/2024, 11/07/2024, Additional history exists DTap/Tdap [...] this encounter Medical Devices Implanted Type Area Edger Automatic Device Identifier Shelf Expiration Date Model / Serial / Lot Lens Intraoc 22.5 - [id number] - [id number] Implanted:Qty: 1 on 05/22/2018 by Jasbir Maurer MD at OR [facility] Right: Eye [employer] 11/22/2022 [id number] / [id number] / [id number] Lens Intraoc 21.0 - [id number] - [id number] Implanted:Qty: 1 on 06/05/2018 by Jasbir Maurer MD at OR [facility] Left: Eye BAUSCH [employer] LOMB 12/20/2022 [id number] / [id number] / Duraclip 16mm Xlg Repostn - [id number] Implanted:Qty: 1 on 04/12/2024 by Edilberto Lujan MD at OR [facility] [employer] [id number] 12/08/2024 [id number] / / [id number] Duraclip 16mm Xlg Repostn - [id number] Implanted:Qty: 1 on 04/12/2024 by Edilberto Lujan MD at OR [facility] [employer] [id number] 12/08/2024 [id number] / / [id number] Duraclip 16mm Xlg Repostn - [id number] Implanted:Qty: 1 on 04/12/2024 by Edilberto Lujan MD at OR [facility] [employer] [id number] 12/08/2024 [id number] / / [id number] documented as of this encounter Visit Diagnoses [...] hemoglobin A1c goal of less than 8.0% ([facility]) Gastro-esophageal reflux disease without esophagitis Esophageal reflux 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[facility]) Primary parkinsonism (HCC) Paralysis agitans Hypertensive 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)- Primary Atrial fibrillation, unspecified type (HCC) Iron deficiency anemia, unspecified iron deficiency anemia type Type 2 diabetes mellitus with stage 3a chronic kidney disease, without long-term current use of insulin ([facility]) Hypertensive 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)- Primary Iron deficiency anemia, unspecified iron deficiency anemia type Wandering atrial pacemaker Other specified cardiac dysrhythmias Primary parkinsonism (HCC) Paralysis agitans 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[facility]) Paroxysmal atrial fibrillation (HCC) Atrial fibrillation Paroxysmal atrial fibrillation ([facility])- Primary Atrial fibrillation 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 Type 2 diabetes mellitus with diabetic peripheral angiopathy without gangrene, unspecified whether nursing home insulin use ([facility]) Coronary artery disease involving [place] coronary artery of [place] heart without angina pectoris Hypertensive heart and [...] mitral valve regurgitation Coronary artery disease involving [place] coronary artery of [place] heart without angina pectoris Paroxysmal atrial fibrillation [...] mitral valve regurgitation Coronary artery disease involving [place] coronary artery of [place] heart without angina pectoris Stage 3b chronic [...] infection Acute apical periodontitis of pulpal origin Anemia due to chronic blood loss- Primary Iron deficiency anemia secondary to blood loss (chronic) documented in this encounter Advance Directives * [...] Agents on File Name Relationship Healthcare Agent [facility] Communication Ashley Jose Spouse Health Care Repr esentative (appointed verbally by patient or by statute hierarchy) Care Teams Jack Setter Relationship Specialty Start Date End Date Michael Hinton MD [address] [facility] [place] [address] PCP - General Family Medicine 08/07/17 documented as of this encounter
--- OUTSIDE RECORDS SUMMARY | 2025-03-05 02:19 | External Medical Summary ---
Author Name Unknown Address Unknown Organization K[facility] [address] [place] [address] Laboratory Report Ordering Provider Test Date Status GUERRERO CHAUHAN 11/21/2024 09:29:00 Final Observation Date Value Abnormality Reference (Units ) Status BUN 11/21/2024 09:29:00 32 Above high normal 6-20 (mg/dL) Final Creatinine 11/21/2024 09:29:00 1.6 Above high normal 0.6-1.2 (mg/dL) Final Glomerular filtration rate/1.73 sq M.predicted [Volume Rate/Area] in Serum, Plasma or Blood by Creatinine-based formula (CKD-EPI) 11/21/2024 09:29:00 43 Below low normal >=60 (mL/min) Final eGFR is calculated based on the CKD-EPI 2020 equation. Sodium 11/21/2024 09:29:00 139 135-146 (m mol/L) Final Potassium 11/21/2024 09:29:00 3.8 3.5-5.1 (m mol/L) Final Cl 11/21/2024 09:29:00 99 98-107 (mm ol/L) Final CO2 11/21/2024 09:29:00 26 22-32 (mmo l/L) Final Anion gap 11/21/2024 09:29:00 14 7-15 (mmol /L) Final Glucose 11/21/2024 09:29:00 275 Above high normal 70 -120 (mg/dL) Final Calcium 11/21/2024 09:29:00 9.2 8.4-10.2 ( mg/dL) Final Performing Location [facility] [place] [address] [place] [address]
--- OUTSIDE RECORDS SUMMARY | 2025-03-05 02:19 | External Medical Summary ---
Author Name Unknown Address Unknown Organization K0G:[facility] [place] [address] [place] [address] Laboratory Report Ordering Provider Test Date Status GUERRERO CHAUHAN 11/21/2024 09:29:00 Final Observation Date Value Abnormality Reference (Units ) Status WBC, Total 11/21/2024 09:29:00 4.08 4.00-10.8 0 (K/uL) Final RBC 11/21/2024 09:29:00 3.67 4.50-5.25 (M/uL) Final Hemoglobin 11/21/2024 09:29:00 12.0 Below low normal 14 .0-16.8 (g/dL) Final HCT 11/21/2024 09:29:00 37.3 Below low normal 40. 0-48.4 (%) Final MCV 11/21/2024 09:29:00 101.6 82.0-99.5 (fL) Final MCH 11/21/2024 09:29:00 32.7 27.0-34.0 (pg) Final MCHC 11/21/2024 09:29:00 32.2 32.0-36.0 (g/dL) Final RDW 11/21/2024 09:29:00 16.7 11.5-15.5 (%) Final Platelets 11/21/2024 09:29:00 125 Below low normal 140 -400 (K/uL) Final MPV 11/21/2024 09:29:00 9.8 6.6-11.1 ( fL) Final Performing Location [facility] [place] [address] [place] [address]
--- OUTSIDE RECORDS SUMMARY | 2025-03-05 02:19 | External Medical Summary | Summary of Care ---
Author Name Unknown Organization [facility] Address [address] [place] [facility] [place] [place] [address] Phone [phone] Care Team Providers Care Slubber Operator Name Role Phone Michael Hinton MD Primary Care Provider [phone] Reason for Visit * Reason Onset Date Comments [facility]: Maintenance 12/27/2024 Encounter Details Date Type Department Care Team (Late st Contact Info) Description 12/27/2024 10:30 AM EST Scheduled Telephone [facility], [facility] [address] [facility] [place] [address] Coordinator, [facility] [address] [facility] [place] [address] Allergies Active Allergy Reactions Criticality Noted Date Comments Fabiano Inhibitors Cough 06/09/2017 Carbidopa High 08/30/2024 Other Reaction(s): constipation Carbidopa W-Levodopa 03/17/2021 Constipation Levodopa High 08/30/2024 Other Reaction(s): constipation Nsaids Rash 05/17/2018 Contraindicated per software performance engineer documented as of this encounter (statuses as of 12/27/2024) Medications Glucose Blood (ONETOUCH VERIO) STRPIndications: Type 2 diabetes mellitus with hemoglobin A1c goal of less than 8.0% ([facility]) Use up to 4 times a day E11.9 400 Strip 3 8 Active ONETOUCH DELICA LANCETS 33G MISCIndications: Type 2 diabetes mellitus with hemoglobin A1c goal of less than 8.0% ([facility]) Use up to 4 times [...] mitral valve regurgitation,Co ronary artery disease involving [place] coronary artery of [place] heart without angina pectoris,Stage 3b chronic kidney [...] daily . PLEASE SCHEDULE FOLLOW UP APPOINTMENT. [phone] Capsule 1 12/11/2024 10:05 AM EST 5 Active Anbesol 10 % Mouth/Throat Gel (Benzocaine) Apply topically to affected area 3 times a day as needed (oral canker sore pain). 9 g 2 5 Active Chlorhexidine Gluconate 0.12 % Mouth/Throat Solution (Peridex) Swish and spit 15 mL in the morning and 15 mL before bedtime. 473 mL 5 5 Active Nystatin 410160 UNIT/GM External Cream Apply topically to affected area 2 times a day. To affacted area for two weeks. 30 g 2 5 Active documented as of this encounter (statuses as of 12/27/2024) Active Problems Problem Noted Date Diagnosed Date [...] Regimen: Beta Sheldon Therapy: Metoprolol Succinate (ER) FABIAON Inhibitor/ARB Therapy: No FABIANO/ARB/ARNI secondary to: cough [...] have staff contact office to notify of [facility] recommendation, possibly consider d.c maxzide [...] (09/01/2024): Follows with Dr Shannon Zhang in [place] via telemed for PD Assessment & Plan [...] of [place] heart without angina pectoris 03/21/2018 Assessment & [...] as of this encounter (statuses as of 12/27/2024) Resolved Problems Problem Noted Date Diagnosed Date [...] as of this encounter (statuses as of 12/27/2024) Immunizations Name Administration Dates Next Due COVID-19 mRNA, LNP-s, No Pre serve, 2-Dose Series (Tenders.es) 11/03/2021,12/19/2020,11/28/2020 Covid-19 Ad26, Single Dose (PayClip/J&J) 12/19/2020,11/28/2020 DTaP Dipth/Tet/Acell Pertussis (Infanrix), Peds 10/24/2019 [...] 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 [facility] Telephonic Nurse Follow-Up Call [facility] Subprogram: Primary Care at Home Follow Up Call Type: 24 hour follow up Acute issue requiring follow-up call: Other: DTP Objective: 12/25/2024 2:07 PM 12/17/2024 1:29 PM 11/22/2024 2:26 PM 11/04/2024 11:08 AM 11/02/2024 10:05 AM VITALS ACROSS ENCOUNTERS BP 152/74 155/81 152/70 162/58 156/82 Pulse 75 67 80 86 86 Weight 71.7 kg 71.9 kg BMI 26.36 BMI 26.29 kg/m2 26.36 kg/m2 Remote Patient Monitoring: Current Health Device: scale, BP cuff Oxygen Needs: NO supplemental oxygen needs identified DME Needs: NO DME needs identified Medications: Current DTP: Double dose of Torsemide for 3 days Subjective: Condition Status: Improvement in symptoms but not at baseline Current Concerns: Spoke with pt's spouse BLE edema has slightly improved. Pt is elevating legs throughout the day andusing compression pumps. SOB has improved. He does have increased urination. Reviewed low sodium diet and fluid restriction. She will call [facility] with any concerns. Disposition: Routed to [facility] and/or [facility] Care Team for further advice and Follow up call scheduled for tomorrow with XAVIER Glue Bone Crusher Future Visits Scheduled: Future Appointments-next 60 days Date/Time Provider Specialty Dept Phone 12/27/2024 10:30 AM Snehal Ortega [place] [facility] [phone] 12/28/2024 9:30 AM Juan, Nurse [facility] [phone] 01/02/2025 7:10 AM [facility] Mobile Home Draw Laboratory Processing [phone] 01/07/2025 3:00 PM (Arrive by 2:45 PM) Dominick Benz DO Cardiology [phone] 01/22/2025 1:30 PM Peggy De RN [facility] [phone] 03/12/2025 3:30 PM Betina Jacob PA-C Family Medicine [phone] 03/18/2025 11:15 AM (Arrive by 11:00 AM) Kalpesh Funes MD Urology [phone] Kasey Lutz LPN documented in this encounter Plan of Treatment Upcoming Encounters Date Type Department Care Team (Late st Contact Info) Description 12/28/2024 9:30 AM EST Scheduled Telephone [facility] [place] [address] [facility], Nurse [facility] [address] [place] [address] 01/02/2025 7:10 AM EDT Laboratory Lab Mobile Phlebotomy [facility] [address] [facility], [place] [address] [facility] Mobile Home Draw [address] [facility], [place] [address] 01/07/2025 3:00 PM EDT Office Visit Cardiology, [facility] [address] [place] [address] Dominick Benz, [address] [place] [address] 01/22/2025 1:30 PM EDT Home Visit [facility], [facility] [address] [place] [address] Peggy De RN [address] [place] [address] 03/12/2025 3:30 PM EDT Home Visit Care at Home [address] [place], [place] [phone] Betina Jacob PA-C [address] [place], [place] [phone] 03/18/2025 11:15 AM EDT Office Visit Urology, [facility] [address] [place] [address] Kalpesh Funes MD [address] [place] [address] Health Maintenance Due Date Last Done Comments Alpha-1 Antitrypsin 1963 Diabetic Foot Exam 03/27/2021 03/27/2020, 08/23/2018 Diabetic Eye Exam 11/01/2023 11/01/2022, , 11/01/2022, Additional history exists Albumin/Creatinine Ratio 12/27/2023 023, 03/08/2019, 04/09/2014 HbA1c 11/23/2024 05/23/2024, 03/24, 12/26/2022, Additional history exists *NEPHROLOGY REFERRAL DUE TO RESISTANT HTN 12/01/2024 CKD PHOS USE SMARTSET 67665 12/07/202411/23, 12/26/2022, 06/21/2021 Adult Wellness Visit 03/06/2025 03/06/2024, 11/02/19 23 O2 ASSESSMENT COMPLETED IN PAST YEAR FOR COPD 04/12/2025 04/12/2024 GFR 05/21/2025 11/21/2024, 10/23, 10/31/2024, Additional history exists Depression Screening 08/06/2025 08/06/2024 CKD HGB USE SMARTSET 16890 11/21/202511/21, 11/21/2024, 11/07/2024, Additional history exists DTap/Tdap [...] encounter Medical Devices Implanted Type Area Social Work Associate Device Identifier Shelf Expiration Date Model / Serial / Lot Lens Intraoc 22.5 - [id number] - [id number] Implanted:Qty: 1 on 05/22/2018 by Jasbir Maurer MD at OR [facility] Right: Eye [employer] 11/22/2022 [id number] / [id number] / [id number] Lens Intraoc 21.0 - [id number] - [id number] Implanted:Qty: 1 on 06/05/2018 by Jasbir Maurer MD at OR [facility] Left: Eye BAUSCH [employer]OM[employer] 12/20/2022 [id number] / [id number] / Duraclip 16mm Xlg Repostn - [id number] Implanted:Qty: 1 on 04/12/2024 by Edilberto Lujan MD at OR [facility] [employer] [id number] 12/08/2024 [id number] / / [id number] Duraclip 16mm Xlg Repostn - [id number] Implanted:Qty: 1 on 04/12/2024 by Edilberto Lujan MD at OR [facility] [employer] [employer] [id number] 12/08/2024 [id number] / / [id number] Duraclip 16mm Xlg Repostn - [id number] Implanted:Qty: 1 on 04/12/2024 by Edilberto Lujan MD at OR [facility] [employer] [id number] 12/08/2024 [id number] / / [id number] documented as of this encounter Advance Directives [...] File Name Relationship Healthcare Agent [facility] Communication Ashley Jose Spouse Health Care Repr esentative (appointed verbally by patient or by statute hierarchy) Care Teams Slubber Operator Relationship Specialty Start Date End Date Michael Hinton MD [address] [place] [address] PCP - General Family Medicine 08/07/17 documented as of this encounter
--- OUTSIDE RECORDS SUMMARY | 2025-03-05 02:19 | External Medical Summary | Summary of Care ---
Author Name Unknown Organization [facility] Address [address] [place] [address] Phone [phone] Care Team Providers Care Telemarketer Name Role Phone Michael Hinton MD Primary Care Provider [phone] Reason for Visit * Reason Onset Date Comments Abnormal Test Results 10/25/2024 Encounter Details Date Type Department Care Team (Late st Contact Info) Description 10/25/2024 Telephone Cardiology, [facility] [address] [place] [address] Dominick Benz, [address] [place] [address] Abnormal Test Results Allergies Active Allergy Reactions Criticality Noted Date Comments Fabiano Inhibitors Cough 06/09/2017 Carbidopa High 08/30/2024 Other Reaction(s): constipation Carbidopa W-Levodopa 03/17/2021 Constipation Levodopa High 08/30/2024 Other Reaction(s): constipation Nsaids Rash 05/17/2018 Contraindicated per director of casework department documented as of this encounter (statuses as of 11/14/2024) Medications Glucose Blood (ONETOUCH VERIO) STRPIndications: Type 2 diabetes mellitus with hemoglobin A1c goal of less than 8.0% ([facility]) Use up to 4 times a day E11.9 400 Strip 3 08/29/20 18 Active ONETOUCH DELICA LANCETS 33G MISCIndications: Type 2 diabetes mellitus with hemoglobin A1c goal of less than 8.0% ([facility]) Use up to 4 times [...] 11/04/2024 3:03 PM EST 05/13/20 24 Active Amantadine HCl 100 MG Oral Capsule (Symmetrel) Take 1 capsule (100 mg total) by mouth daily . 90 Capsule 1 09/12/2024 6:55 AM EST 06/11/20 24 Active Triamcinolone Acetonide 0.1 % External Ointment (Aristocort) Apply to legs daily with dressing changes 454 g 1 08/14/20 24 Active Saccharomyces boulardii 250 MG Oral Capsule (Florastor)Indic ations:Clostridi um difficile diarrhea Take 1 Capsule by mouth in the morning and 1 Capsule before bedtime. 90 Capsule 3 08/19/20 24 Active Metoprolol Succinate ER 50 MG Oral Tablet Extended Release 24 Hour (Toprol XL) Take 1 Tablet by mouth in the morning. 90 Tablet 3 08/27/2024 12:35 PM EST 08/26/20 24 Active Potassium Chloride 20 MEQ/15ML (10%) Oral SolutionIndicati ons:Chronic diastolic 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 (HCC) Take 15 mL by mouth in the morning. 1500 mL 3 08/27/2024 11:54 AM EST 08/26/20 24 Active Dificid 200 MG Oral Tablet (Fidaxomicin) Take 1 Tablet by mouth every other day. 35 Tablet 08/29/20 24 Active Colestipol HCl 1 GM Oral Tablet (Colestid) take 2 tablets by mouth with supper and 2 tablets by mouth at bedtime. Adjust as needed. 360 Tablet 3 09/11/2024 1:26 PM EST 09/11/20 24 Active Spironolactone 25 MG Oral Tablet (Aldactone) Take one-half Tablet by mouth in the morning. 45 Tablet 3 09/18/2024 11:58 AM EST 09/17/20 24 Active Dutasteride 0.5 MG Oral Capsule (Avodart) Take 1 Capsule by mouth in the morning. 90 Capsule 3 10/17/2024 5:00 PM EST 09/17/20 24 Active Atorvastatin Calcium 40 MG Oral Tablet (Lipitor)Indicat ions:Dyslipidemi a Take 1 Tablet by mouth in the morning. 90 Tablet 3 09/27/2024 4:44 PM EST 09/25/20 24 Active Empagliflozin 10 [...] mitral valve regurgitation,Co ronary artery disease involving [place] coronary artery of [place] heart without angina pectoris,Stage 3b chronic kidney disease (HCC) Take 3 Tablets by mouth once a day on Monday, Monday, and Monday only AND 2 Tablets once a day on Monday, , Monday, and Monday only. 10/25/19 25 Active Torsemide 20 MG Oral Tablet (Demadex)Indicat ions:Paroxysmal atrial fibrillation (HCC),Nonrheumat ic mitral valve regurgitation,Co ronary artery disease involving [place] coronary artery of [place] heart without angina pectoris,Stage 3b chronic kidney disease (HCC) take three tablets by mouth in the morning 270 Tablet 3 08/27/2024 11:54 AM EST 08/26/20 24 025 Discontin ued(Refil l) documented as of this encounter (statuses as of 11/14/2024) Active Problems Problem Noted Date Diagnosed Date [...] Plan (08/08/2024 3:17 PM EDT): Follows with [facility] hematology Routine labs monitored by hem/onc Labs pending today Iron infusion 08/02 Blood transfusion 08/05 Assessment & Plan (07/15/2024 6:05 PM EDT): Follows with [facility] hematology Routine labs monitored by hem/onc Update CBC next week Assessment & Plan (03/13/2024 11:24 AM EDT): Follows with [facility] hematology Routine labs monitored by hem/onc Update CBC tomorrow PRBC transfusions 01/2024, 02/2024 Assessment & Plan (10/17/2023 9:43 AM EST): Followed closely by [facility] hematology. No identified cause of HUNTER. Weekly labs monitored by hem/onc. Most recent hgb 8.7 Assessment & Plan (05/02/2023 1:04 PM EDT): Followed closely by [facility] [...] (09/01/2024): Follows with Dr Shannon Zhang in [place] via telemed for PD Assessment & Plan [...] of [place] heart without angina pectoris 03/21/2018 Assessment & [...] as of this encounter (statuses as of 11/14/2024) Resolved Problems Problem Noted Date Diagnosed Date [...] scanned document from 11/13/[address] [facility] [place]. 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 Benz. Noted. Shannan Gant * Telephone Encounter - Kirk Marino LPN - 10/25/2024 1:02 PM EST Sent a MyChart and spoke to patients spouse who verbalized understanding. Medication list updated. Mobile phlebotomy scheduled for 11/07/24 and is unsure if 10/31/24 can be done. She also stated patient's last BSG was 187. * Telephone Encounter - Dominick Benz DO - 10/25/2024 12:46 PM EST Cardiology nursing, [facility] on 10/24 in follow up of start of Jardiance 10 mg reveals worsening kidney function, creatinine 2.1 up from 1.3 Plan: Reduce torsemide from 60 mg (3 x 20 mg tablets ) every day to 3 tabs on Mondays , Monday, and Fridays, and two tablets or 40 mg on the other days. Continue Jardiance 10 mg. Repeat BMP next week on , order entered. Please update med list if pt agreeable. Dominick Benz DO documented in this encounter Plan of Treatment Upcoming Encounters Date Type Department Care Team (Late st Contact Info) Description 11/21/2024 8:05 AM EST Laboratory Lab Mobile Phlebotomy [facility] [address] [facility] [place] [address] Mvmg, Gml Mobile Home Draw [address] [facility] [place], [place] [address] 11/21/2024 12:00 PM EST Office Visit Gastroenterology, [facility] [address] [facility] [place] [address] Cisco Buitrago CRNP [address] [facility] [place] [address] 11/22/2024 2:30 PM EST [facility] Visit [facility], [facility] [address] [place] [address] Pegyg De RN [facility] [place] [address] 03/12/2025 3:30 PM EDT Home Visit Care at Home [address] [place] [address] Betina Jacob PA-C [address] [place] [address] 03/18/2025 11:15 AM EDT Office Visit Urology, [facility] [address] [facility] [place] [address] Kalpesh Funes MD [address] [place] [address] Health Maintenance Due Date Last Done Comments Alpha-1 Antitrypsin 1963 Diabetic Foot Exam 03/27/2021 03/27/2020, 08/23/2018 Diabetic Eye Exam 11/01/2023 11/01/2022, , 11/01/2022, Additional history exists Albumin/Creatinine Ratio 12/27/2023 023, 03/08/2019, 04/09/2014 HbA1c 11/23/2024 05/23/2024, 03/24, 12/26/2022, Additional history exists CKD PHOS USE SMARTSET 04880 12/07/202411/23, 12/26/2022, 06/21/2021 Adult Wellness Visit 03/06/2025 03/06/2024, 11/02/19 23 O2 ASSESSMENT COMPLETED IN PAST YEAR FOR COPD 04/12/2025 04/12/2024 GFR 05/07/2025 11/07/2024, 06/2025, 10/24/2024, Additional history exists Depression Screening 08/06/2025 08/06/2024 CKD HGB USE SMARTSET 41169 11/07/202511/07, 11/07/2024, 10/24/2024, Additional history exists DTap/Tdap Vaccines (4 - [...] encounter Medical Devices Implanted Type Area Carpet Cleaner Device Identifier Shelf Expiration Date Model / Serial / Lot Lens Intraoc 22.5 - [id number] - [id number] Implanted:Qty: 1 on 05/22/2018 by Jasbir Maurer MD at OR [facility] Right: Eye [employer] 11/22/2022 [id number] / [id number] / [id number] Lens Intraoc 21.0 - [id number] - [id number] Implanted:Qty: 1 on 06/05/2018 by Jasbir Maurer MD at OR [facility] Left: Eye [employer]OM[employer] 12/20/2022 [id number] / [id number] / Duraclip 16mm Xlg Repostn - [id number] Implanted:Qty: 1 on 04/12/2024 by Edilberto Lujan MD at OR [facility] [employer] [id number] 12/08/2024 [id number] / / [id number] Duraclip 16mm Xlg Repostn - [id number] Implanted:Qty: 1 on 04/12/2024 by Edilberto Lujan MD at OR [facility] [employer] [id number] 12/08/2024 [id number] / / [id number] Duraclip 16mm Xlg Repostn - [id number] Implanted:Qty: 1 on 04/12/2024 by Edilberto Lujan MD at OR [facility] [employer] [id number] 12/08/2024 [id number] / / [id number] documented as of this encounter Results * (ABNORMAL) BASIC METABOLIC PANEL (10/31/2024 9:25 AM EST) BUN 32(H) 6 - 20 mg/dL 10/31/2024 11:26 AM EST [facility] 57-10 CREATININE 1.7(H) 0.6 - 1.2 mg/dL 10/31/2024 11:26 AM EST [facility] 57-10 EGFR 40(L) >=60 mL/min 10/31/2024 11:26 AM EST [facility] 57-10 Comment:eGFR is calculated b ased on the CKD-EPI 2020 equation. SODIUM 140 135 - 146 mmol/L 10/31/2024 11:26 AM EST [facility] 57-10 POTASSIUM 4.0 3.5 - 5.1 mmol/L 10/31/2024 11:26 AM EST [facility] 57-10 CHLORIDE 100 98 - 107 mmol/L 10/31/2024 11:26 AM EST [facility] CO2 27 22 - 32 mmol/L 10/31/2024 11:26 AM EST [facility] 57-10 ANION GAP 13 7 - 15 mmol/L 10/31/2024 11:26 AM EST [facility] GLUCOSE 172(H) 70 - 120 mg/dL 10/31/2024 11:26 AM EST [facility]10 CALCIUM 9.9 8.4 - 10.2 mg/dL 10/31/2024 11:26 AM EST LAB[facility] 57-10 Blood Venous blood specimen / Unknown Venipuncture / Unknown 10/31/2024 9:25 AM EST 10/31/2024 10:06 AM EST Dominick Benz DO LAB BLOOD ORDERABLES Final R esult [facility] 57-[address] [place] [address] documented in this encounter Visit Diagnoses Diagnosis Viral upper [...] A1c goal of less than 8.0% ([facility]) Gastro-esophageal reflux disease without esophagitis [...] diabetic peripheral angiopathy without gangrene, unspecified whether snf insulin use (HCC) Coronary artery disease involving [place] coronary artery of [place] heart without angina pectoris Hypertensive heart and [...] mitral valve regurgitation Coronary artery disease involving [place] coronary artery of [place] heart without angina pectoris Paroxysmal atrial fibrillation [...] mitral valve regurgitation Coronary artery disease involving [place] coronary artery of [place] heart without angina pectoris Stage 3b chronic [...] with preserved ejection fraction (HFpEF) (HCC)- Primary Paroxysmal atrial fibrillation (HCC) Atrial fibrillation Nonrheumatic mitral valve regurgitation Coronary artery disease involving [place] coronary artery of [place] heart without angina pectoris Stage 3b chronic kidney disease (HCC) documented in [...] patient or by statute hierarchy) Care Teams Telemarketer Relationship Specialty Start Date End Date Michael Hinton MD [address] [place] [address] PCP - General Family Medicine 08/07/17 documented as of this encounter
--- OUTSIDE RECORDS SUMMARY | 2025-03-05 02:19 | External Medical Summary | Summary of Care ---
Author Name Unknown Organization [facility] Address [address] [place] [address] Phone [phone] Care Team Providers Care Dumper Name Role Phone Michael Hinton MD Primary Care Provider [phone] Encounter Details Date Type Department Care Team (Late st Contact Info) Description 12/03/2024 Population Health External Data Unspecified Department Allergies Active Allergy Reactions Criticality Noted Date Comments Fabiano Inhibitors Cough 06/09/2017 Carbidopa High 08/30/2024 Other Reaction(s): constipation Carbidopa W-Levodopa 03/17/2021 Constipation Levodopa High 08/30/2024 Other Reaction(s): constipation Nsaids Rash 05/17/2018 Contraindicated per ammonia operator documented as of this encounter (statuses as of 12/04/2024) Medications Glucose Blood (ONETOUCH VERIO) STRPIndications: Type [...] mitral valve regurgitation,Co ronary artery disease involving [place] coronary artery of [place] heart without angina pectoris,Stage 3b chronic kidney [...] as of this encounter (statuses as of 12/04/2024) Active Problems Problem Noted Date Diagnosed Date [...] have staff contact office to notify of [facility] recommendation, possibly consider d.c maxzide and [...] Plan (08/08/2024 3:17 PM EDT): Follows with [facility] hematology Routine labs monitored by hem/onc Labs pending today Iron infusion 08/02 Blood transfusion 08/05 Assessment & Plan (07/15/2024 6:05 PM EDT): Follows with [facility] hematology Routine labs monitored by hem/onc Update CBC next week Assessment & Plan (03/13/2024 11:24 AM EDT): Follows with [facility] hematology Routine labs monitored by hem/onc Update CBC tomorrow PRBC transfusions 01/2024, 02/2024 Assessment & Plan (10/17/2023 9:43 AM EST): Followed closely by [facility] hematology. No identified cause of HUNTER. Weekly labs monitored by hem/onc. Most recent hgb 8.7 Assessment & Plan (05/02/2023 1:04 PM EDT): Followed closely by [facility] hematology. No identified cause of HUNTER. Weekly labs monitored by hem/onc. Most recent hgb stable 10.5. Assessment & Plan (03/28/2023 1:27 PM EDT): Received blood transfusion 03/24 -will follow-up CBC on 03/30 -continue ferrous sulfate. Dose once daily. Med list updated Assessment & Plan (10/19/2022 1:20 PM EST): Followed by hem/onc. Had severe anemia in Aug with drop to 4.3. [facility] now monitoring counts weekly. Pt very [...] (09/01/2024): Follows with Dr Shannon Zhang in [place] via telemed for PD Assessment & Plan [...] [place] heart without angina pectoris 03/21/2018 Assessment & [...] as of this encounter (statuses as of 12/04/2024) Resolved Problems Problem Noted Date Diagnosed Date [...] scanned document from 11/13/[address] [facility] [place]. 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 [place] [address] 01/07/2025 3:00 PM EDT Office Visit Cardiology, [facility] [address] [place] [address] Dominick Benz DO [address] [place] [address] 03/12/2025 3:30 PM EDT Home Visit Care at Home [address] [place] [address] Betina Jacob PA-C [address] [place], [place] [address] 03/18/2025 11:15 AM EDT Office Visit Urology, [facility] [address] [facility] [place] [address] Kalpesh Funes MD [address] [place] [address] Health Maintenance Due Date Last Done Comments Alpha-1 Antitrypsin 1963 Diabetic Foot Exam 03/27/2021 03/27/2020, 08/23/2018 Diabetic Eye Exam 11/01/2023 11/01/2022, , 11/01/2022, Additional history exists Albumin/Creatinine Ratio 12/27/2023 023, 03/08/2019, 04/09/2014 HbA1c 11/23/2024 05/23/2024, 03/24, 12/26/2022, Additional history exists *NEPHROLOGY REFERRAL DUE TO RESISTANT HTN 12/01/2024 CKD PHOS USE SMARTSET 82168 12/07/202411/23, 12/26/2022, 06/21/2021 Adult Wellness Visit 03/06/2025 03/06/2024, 11/02/19 23 O2 ASSESSMENT COMPLETED IN PAST YEAR FOR COPD 04/12/2025 04/12/2024 GFR 05/21/2025 11/21/2024, 10/23, 10/31/2024, Additional history exists Depression Screening 08/06/2025 08/06/2024 CKD HGB USE SMARTSET 50675 11/21/202511/21, 11/21/2024, 11/07/2024, Additional history exists DTap/Tdap [...] this encounter Medical Devices Implanted Type Area Gas Engineer Device Identifier Shelf Expiration Date Model / Serial / Lot Lens Intraoc 22.5 - [id number] - [id number] Implanted:Qty: 1 on 05/22/2018 by Jasbir Maurer MD at OR [facility] Right: Eye [employer]OM[employer] 11/22/2022 [id number] / [id number] / [id number] Lens Intraoc 21.0 - [id number] - [id number] Implanted:Qty: 1 on 06/05/2018 by Jasbir Maurer MD at OR [facility] Left: Eye BA[employer]CH [employer] LOMB 12/20/2022 [id number] / [id number] / Duraclip 16mm Xlg Repostn - [id number] Implanted:Qty: 1 on 04/12/2024 by Edilberto Lujan MD at OR [facility] [employer] [id number] 12/08/2024 [id number] / / [id number] Duraclip 16mm Xlg Repostn - [id number] Implanted:Qty: 1 on 04/12/2024 by Edilberto Lujan MD at OR [facility] [employer] [id number] 12/08/2024 [id number] / / [id number] Duraclip 16mm Xlg Repostn - [id number] Implanted:Qty: 1 on 04/12/2024 by Edilberto Lujan MD at OR [facility] [employer] [id number] 12/08/2024 [id number] / / [id number] documented as of this encounter Advance Directives [...] patient or by statute hierarchy) Care Teams Dumper Relationship Specialty Start Date End Date Michael Hinton MD [address] [place] [address] PCP - General Family Medicine 08/07/17 documented as of this encounter
--- OUTSIDE RECORDS SUMMARY | 2025-03-05 02:19 | External Medical Summary ---
Author Name UNSPECIFIED Address Unknown Organization [facility] History of Encounters Reason for Assessment: Discharge from [facility] Inpatient Facility where the patient been admitted: No inpatient facility admission Discharge Disposition: Patient remained in the community (without formal assistive services) Functional Assessment When Dyspneic: When walking more th an 20 feet, climbing stairs Bowel Incontinence Frequency: Very rarel y or never has bowel incontinence When Anxious (Reported or Observed): Les s often than daily Cognitive and Behavioral and Psychiatric Symptoms: None Current Ability: Bathing: Able to bathe in [...]
--- OUTSIDE RECORDS SUMMARY | 2025-03-05 02:19 | External Medical Summary ---
Author Name Unknown Address Unknown Organization [facility] [address] [place] [address] Laboratory Report Ordering Provider Test Date Status GUERRERO CHAUHAN 11/21/2024 09:29:00 Final Observation Date Value Abnormality Reference (Units ) Status SYNC LEUKOCYTES IN BLOOD BY AUTOMATED COUNT 11/21/2024 09:29:00 4.08 4.00-10.80 (K/uL) Final Segs 11/21/2024 09:29:00 71.4 40.0-75.0 (%) Final Lymphs % 11/21/2024 09:29:00 20.3 18.0-42.0 (%) Final Monos 11/21/2024 09:29:00 6.6 1.0-11.0 (%) Final Eosinophils 11/21/2024 09:29:00 1.2 0.0-6.0 (%) Final Basos 11/21/2024 09:29:00 0.5 0.0-2.0 (%) Final Absolute Segs 11/21/2024 09:29:00 2.91 1.80-7.70 (K/uL) Final Lymphs, absolute 11/21/2024 09:29:00 0.83 Below low normal 1.00-4.80 (K/ul) Final Monos, Abs 11/21/2024 09:29:00 0.27 0.00-1.10 (K/uL) Final Eos, Abs 11/21/2024 09:29:00 0.05 0.00-0.70 (K/uL) Final Basos, Abs 11/21/2024 09:29:00 0.02 0.00-0.20 (K/uL) Final Performing Location [facility] 0 - [address] [place] [address]
--- OUTSIDE RECORDS SUMMARY | 2025-03-05 02:19 | External Medical Summary ---
Author Name Unknown Address Unknown Organization K[facility] [address] - [address] [facility] [address] Laboratory Report Ordering Provider Test Date Status GUERRERO CHAUHAN 11/21/2024 09:29:00 Final Observation Date Value Abnormality Reference (Units ) Status Neutrophils/100 leukocytes in Blood by Manual count 11/21/2024 09:29:00 70.0 40.0-75.0 (%) Final Lymphocytes/100 leukocytes in Blood by Manual count 11/21/2024 09:29:00 24.0 18.0-42.0 (%) Final Monocytes/100 leukocytes in Blood by Manual count 11/21/2024 09:29:00 2.0 1.0-11.0 (%) Final Eosinophils/100 leukocytes in Blood by Manual count 11/21/2024 09:29:00 4.0 0.0-6.0 (%) Final Neutrophils [#/volume] in Blood by Manual count 11/21/2024 09:29:00 2.86 1.80-7.70 (K/uL) Final Lymphocytes [#/volume] in Blood by Manual count 11/21/2024 09:29:00 0.98 Below low normal 1.00-4.80 (K/uL) Final Monocytes [#/volume] in Blood by Manual count 11/21/2024 09:29:00 0.08 0.00-1.10 (K/uL) Final Eosinophils [#/volume] in Blood by Manual count 11/21/2024 09:29:00 0.16 0.00-0.70 (K/uL) Final Nucleated erythrocytes/100 leukocytes [Ratio] in Blood by Automated count 11/21/2024 09:29:00 Final Performing Location [facility] [employer] 57-[address] 0 - [address] [facility] [address]
--- OUTSIDE RECORDS SUMMARY | 2025-03-05 02:19 | External Medical Summary | Summary of Care ---
Author Name Unknown Organization [facility] Address [address] [place] [address] Phone [phone] Care Team Providers Care Skip Pitman Name Role Phone Michael Hinton MD Primary Care Provider [phone] Encounter Details Date Type Department Care Team (Late st Contact Info) Description 11/22/2024 2:30 PM EST [facility] [place] [address] Peggy De, RN [address] [facility] [place] [address] Allergies Active Allergy Reactions Criticality Noted Date Comments Fabiano Inhibitors Cough 06/09/2017 Carbidopa High 08/30/2024 Other Reaction(s): constipation Carbidopa W-Levodopa 03/17/2021 Constipation Levodopa High 08/30/2024 Other Reaction(s): constipation Nsaids Rash 05/17/2018 Contraindicated per sorting machine attendant documented as of this encounter (statuses as of 11/28/2024) Medications Glucose Blood (ONETOUCH VERIO) STRPIndications: Type [...] mitral valve regurgitation,Co ronary artery disease involving chenega coronary artery of chenega heart without angina pectoris,Stage 3b chronic kidney [...] as of this encounter (statuses as of 11/28/2024) Active Problems Problem Noted Date Diagnosed Date [...] staff contact office to notify of [facility] recommendation, possibly consider d.c maxzide and [...] Plan (07/15/2024 6:05 PM EDT): Follows with [facility] hematology Routine labs monitored by hem/onc Update CBC next week Assessment & Plan (03/13/2024 11:24 AM EDT): Follows with [facility] hematology Routine labs monitored by hem/onc Update CBC tomorrow PRBC transfusions 01/2024, 02/2024 Assessment & Plan (10/17/2023 9:43 AM EST): Followed closely by [facility] hematology. No identified cause of HUNTER. Weekly labs monitored by hem/onc. Most recent hgb 8.7 Assessment & Plan (05/02/2023 1:04 PM EDT): Followed closely by [facility] hematology. No identified cause of HUNTER. [...] (09/01/2024): Follows with Dr Shannon Zhang in [place] via telemed for PD Assessment & Plan [...] knees 03/21/2018 Coronary artery disease invo lving chenega coronary artery of chenega heart without angina pectoris 03/21/2018 Assessment & [...] as of this encounter (statuses as of 11/28/2024) Resolved Problems Problem Noted Date Diagnosed Date [...] (H) 09/09/2019 07:46 AM 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 on file Not on fi le Not on file Not on file Not on file Not on file documented as of this encounter Last Filed Vital Signs Vital Sign Reading Time Taken Comments Blood Pressure 152/70 11/22/2024 2:26 PM EST Pulse 80 11/22/2024 2:26 PM EST Temperature 36.4 °C (97.6 °F) 11/22/2024 2:26 PM ES T Respiratory Rate 18 11/22/2024 2:26 PM EST Oxygen Saturation 98% 11/22/2024 2:26 PM EST Inhaled Oxygen Concentration - - Weight - - Height - - Body Mass Index - - documented in this encounter Progress Notes * Peggy De, RN - 11/22/2024 2:25 PM EST Current Concerns: Pt seen for return RNCM visit States he is feeling good Wound clinic provided pt with JOBST stockings to wear daily No longer getting wound care - no open areas noted on BLE States he did have an open area that was cultured at wound clinic - the area is now closed but wifestates he was ordered doxycycline He is going to start that today after picked up from pharmacy HH has discharged him Going to wd clinic on 12/13 to see orthotics for new shoes Edema of LE's is at baseline No increased SOB Saw heme this am at [facility] - he continues to get labwork done but now changed from every other week to be done in December again - states his number have been good and he has not needed a blood or iron transfusion in some time Weights have been stable, last reading was 154.7 lbs on M No acute concerns at this time Physical Exam: Physical Exam Constitutional: General: He is not in acute distress. Cardiovascular: Rate and Rhythm: Normal rate and regular rhythm. Pulses: Normal pulses. Heart sounds: Normal heart sounds. Pulmonary: Effort: Pulmonary effort is normal. Breath sounds: Normal breath sounds. Abdominal: General: Bowel sounds are normal. Palpations: Abdomen is soft. Musculoskeletal: Right lower leg: Edema present. Left lower leg: Edema present. Skin: General: Skin is warm and dry. Neurological: Mental Status: He is alert. Mental status is at baseline. Review of Systems: Review of Systems Constitutional: Negative. HENT: Negative. Eyes: Negative. Respiratory: Positive for shortness of breath (MUSTAFA - at baseline). Cardiovascular: Positive for leg swelling. Gastrointestinal: Negative. Genitourinary: Negative. Musculoskeletal: Positive for arthralgias, back pain and gait problem. Skin: Negative. Psychiatric/Behavioral: Positive for confusion (mild, intermittent, at baseline). Care Plan Goal Progress: Patient will maintain optimal mobility & activity level. (Progressing) Start: 07/27/24 Expected End: 01/17/25 Patient will achieve & maintain optimal fluid balance. (Progressing) Start: 07/27/24 Expected End: 01/17/25 Orders Placed: No orders of the defined types were placed in this encounter. Medications Given: Care Gaps: Care Gaps Care gaps closed this contact: Education;Medications;Plan of Care (POC) (11/22/241436) Type of education: Clinical/disease (11/22/241436) Type of medication care gap: Medication adherence (11/22/241436) Type of plan of care (POC) care gap: Adjustment of plan of care (POC) and/or Integrated Care Plan (ICP);Education and review of exacerbation plan (11/22/241436) documented in this encounter Plan of Treatment Upcoming Encounters Date Type Department Care Team (Late st Contact Info) Description 12/25/2024 3:00 PM EST Home Visit [facility] [address] [place] [address] [address] Peggy De RN 132 [facility] [place] [address] 01/02/2025 7:10 AM EDT Laboratory Lab Mobile Phlebotomy [facility] [address] [place] [address] [facility] Mobile Home Draw [address] [place] [address] 01/07/2025 3:00 PM EDT Office Visit Cardiology, [facility] [address] [place] [address] [address] Dominick Benz, [address] [place] [address] 03/12/2025 3:30 PM EDT Home Visit Care at Home [address], [place] [id number] Betina Jacob PA-C [address] [place], [place] [id number] 03/18/2025 11:15 AM EDT Office Visit Urology, [facility] [address] [place] [address] Kalpesh Funes MD [address] [place] [address] Health Maintenance Due Date Last Done Comments Alpha-1 Antitrypsin 1962 Diabetic Foot Exam 03/27/2021 03/27/2020, 08/23/2018 Diabetic Eye Exam 11/01/2023 11/01/2022, , 11/01/2022, Additional history exists Albumin/Creatinine Ratio 12/27/2023 023, 03/08/2019, 04/09/2014 HbA1c 11/23/2024 05/23/2024, 03/24, 12/26/2022, Additional history exists CKD PHOS USE SMARTSET 98528 12/07/202411/23, 12/26/2022, 06/21/2021 Adult Wellness Visit 03/06/2025 03/06/2024, 11/02/19 23 O2 ASSESSMENT COMPLETED IN PAST YEAR FOR COPD 04/12/2025 04/12/2024 GFR 05/21/2025 11/21/2024, 10/23, 10/31/2024, Additional history exists Depression Screening 08/06/2025 08/06/2024 CKD HGB USE SMARTSET 94441 11/21/202511/21, 11/21/2024, 11/07/2024, Additional history exists DTap/Tdap [...] this encounter Medical Devices Implanted Type Area Lending Advisor Device Identifier Shelf Expiration Date Model / Serial / Lot Lens Intraoc 22.5 - [id number] - [id number] Implanted:Qty: 1 on 05/22/2018 by Jasbir Maurer MD at OR [facility] Right: Eye BAUSCH & LOMB 11/22/2022 [id number] / [id number] / [id number] Lens Intraoc 21.0 - [id number] - [id number] Implanted:Qty: 1 on 06/05/2018 by Jasbir Maurer MD at OR [facility] Left: Eye BAUSCH & LOMB 12/20/2022 [id number] / [id number] / Duraclip 16mm Xlg Repostn - [id number] Implanted:Qty: 1 on 04/12/2024 by Edilberto Lujan MD at OR [facility] [employer] NACHO [id number] 12/08/2024 [id number] / / [id number] Duraclip 16mm Xlg Repostn - [id number] Implanted:Qty: 1 on 04/12/2024 by Edilberto Lujan MD at OR [facility] [employer] [id number] 12/08/2024 [id number] / / [id number] Duraclip 16mm Xlg Repostn - [id number] Implanted:Qty: 1 on 04/12/2024 by Edilberto Lujan MD at OR [facility] [employer] [id number] 12/08/2024 [id number] / / [id number] documented as of this encounter Advance Directives [...] patient or by statute hierarchy) Care Teams Skip Pitman Relationship Specialty Start Date End Date Michael Hinton MD [address] [place] [address] PCP - General Family Medicine 08/07/17 documented as of this encounter
--- OUTSIDE RECORDS SUMMARY | 2025-03-05 02:19 | External Medical Summary | Summary of Care ---
Author Name Unknown Organization [facility] Address [address] [place] [address] Phone [phone] Care Team Providers Care Enterprise Sales Person Name Role Phone Michael Hinton MD Primary Care Provider [phone] Reason for Visit * Reason Comments Acute Pt being seen for so res inside and outside of mouth, very painful. Has some under RT arm that is very red and sore. Has had them for 2 weeks now and not improving. Encounter Details Date Type Department Care Team (Late st Contact Info) Description 12/17/2024 1:40 PM EST Office Visit Family Practice [facility] 132 [facility] [place] [address] Eduardo Groves MD 132 [facility] [place] [address] Canker sores oral*; Periodontal disease; Dyslipidemia; Chronic diastolic 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 (HCC) Allergies Active Allergy Reactions Criticality Noted Date Comments Fabiano Inhibitors Cough 06/09/2017 Carbidopa High 08/30/2024 Other Reaction(s): constipation Carbidopa W-Levodopa 03/17/2021 Constipation Levodopa High 08/30/2024 Other Reaction(s): constipation Nsaids Rash 05/17/2018 Contraindicated per project management advisor documented as of this encounter (statuses as of 12/17/2024) Medications Glucose Blood (ONETOUCH VERIO) STRPIndications: Type 2 diabetes mellitus with hemoglobin A1c goal of less than 8.0% ([facility]) Use up to 4 times a day E11.9 400 Strip 3 8 Active CHASE RODRIGUEZ LANCETS 33G MISCIndications: Type 2 diabetes mellitus with hemoglobin A1c goal of less than 8.0% ([facility]) Use up to 4 times [...] mitral valve regurgitation,Co ronary artery disease involving burns paiute coronary artery of burns paiute heart without angina pectoris,Stage 3b chronic kidney [...] daily . PLEASE SCHEDULE FOLLOW UP APPOINTMENT. [phone] Capsule 1 12/11/2024 10:05 AM EST Active Anbesol 10 % Mouth/Throat Gel (Benzocaine) Apply topically to affected area 3 times a day as needed (oral canker sore pain). 9 g 2 5 Active Chlorhexidine Gluconate 0.12 % Mouth/Throat Solution (Peridex) Swish and spit 15 mL in the morning and 15 mL before bedtime. 473 mL 5 5 Active Nystatin 060800 UNIT/GM External Cream Apply topically to affected area 2 times a day. To affacted area for two weeks. 30 g 2 5 Active documented as of this encounter (statuses as of 12/17/2024) Active Problems Problem Noted Date Diagnosed Date [...] have staff contact office to notify of [facility] recommendation, possibly consider d.c maxzide [...] (08/08/2024 3:17 PM EDT): Follows with [facility] hematology Routine labs monitored by hem/onc Labs pending today Iron infusion 08/02 Blood transfusion 08/05 Assessment & Plan (07/15/2024 6:05 PM EDT): Follows with [facility] hematology Routine labs monitored by hem/onc Update CBC next week Assessment & Plan (03/13/2024 11:24 AM EDT): Follows with [facility] hematology Routine labs monitored by hem/onc Update CBC tomorrow PRBC transfusions 01/2024, 02/2024 Assessment & Plan (10/17/2023 9:43 AM EST): Followed closely by [facility] hematology. No identified cause of HUNTER. Weekly labs monitored by hem/onc. Most recent hgb 8.7 Assessment & Plan (05/02/2023 1:04 PM EDT): Followed closely by [facility] hematology. [...] (09/01/2024): Follows with Dr Shannon Zhang in [place] via telemed for PD Assessment & Plan [...] knees 03/21/2018 Coronary artery disease invo lving burns paiute coronary artery of burns paiute heart without angina pectoris 03/21/2018 Assessment & [...] as of this encounter (statuses as of 12/17/2024) Resolved Problems Problem Noted Date Diagnosed Date [...] scanned document from 11/13/[address] bains, [facility]. 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 on file Not on fi le Not on file Not on file Not on file Not on file documented as of this encounter Last Filed Vital Signs Vital Sign Reading Time Taken Comments Blood Pressure 155/81 12/17/2024 1:29 PM EST Pulse 67 12/17/2024 1:29 PM EST Temperature 35.7 °C (96.3 °F) 12/17/2024 1:29 PM ES T Respiratory Rate 18 12/17/2024 1:29 PM EST Oxygen Saturation - - Inhaled Oxygen Concentration - - Weight 71.7 kg (158 lb) 12/17/2024 1:29 PM EST Height - - Body Mass Index 26.29 11/04/2024 11:08 AM EST documented in this encounter Progress Notes * Eduardo Groves MD - 12/17/2024 2:08 PM EST Images from the original note were not included. History of Present Illness Jesus Jose is a 79 year old male that presents for Acute (Pt being seen for sores inside and outside of mouth, very painful. Has some under RT arm that is very red and sore. Has had them for 2 weeks now and not improving. ) Patient has a long hx of canker sores Physical Exam BP 155/81 | Pulse 67 | Temp 96.3 °F (35.7 °C) (Tympanic) | Resp 18 | Wt 158 lb (71.7 kg) | BMI 26.29 kg/m² | BSA 1.81 m² NAD Chronically ill appearing + redness and galded appearance under right axilla/underarm Canker sore corner of lips on right + sore on tongue as well No sores on throat Periodontal disease noted with plaque both upper and lower I have reviewed most recent labs None Assessment and Plan Canker sores oral - topical anbesol and will use peridex rinse daily for the below Periodontal disease - peridex rinse daily Dyslipidemia - cont tx Chronic diastolic 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 (HCC) - stable - weight is stable from last month. Wrap-Up Prn/scheduled Time: I spent a total of 30-39 minutes (exact time 33 mins) on the date of service in preparation, delivery, and documentation of the care provided to Jesus Jose excluding any time spent in the performance of separately billed services. documented in this encounter Plan of Treatment Upcoming Encounters Date Type Department Care Team (Late st Contact Info) Description 12/25/2024 3:00 PM EST Home Visit [facility] [place], [facility] [address] [place] [address] Peggy De RN [address] [place] [address] 01/02/2025 7:10 AM EDT Laboratory Lab Mobile Phlebotomy [place] [address] [place] [address] [facility] Mobile Home Draw [facility] [place] [address] 01/07/2025 3:00 PM EDT Office Visit Cardiology, [facility] [address] [place] [address] Dominick Benz, [address] [place] [address] 03/12/2025 3:30 PM EDT Home Visit Care at Home [address] [place] [address] Betina Jacob PA-C [address] [place] [address] 03/18/2025 11:15 AM EDT Office Visit Urology, [facility] 132 [facility] [place] [address] Kalpseh Funes MD [address] [place] [address] Health Maintenance Due Date Last Done Comments Alpha-1 Antitrypsin 1962 Diabetic Foot Exam 03/27/2021 03/27/2020, 08/23/2018 Diabetic Eye Exam 11/01/2023 11/01/2022, , 11/01/2022, Additional history exists Albumin/Creatinine Ratio 12/27/2023 023, 03/08/2019, 04/09/2014 HbA1c 11/23/2024 05/23/2024, 03/24, 12/26/2022, Additional history exists *NEPHROLOGY REFERRAL DUE TO RESISTANT HTN 12/01/2024 CKD PHOS USE SMARTSET 85081 12/07/202411/23, 12/26/2022, 06/21/2021 Adult Wellness Visit 03/06/2025 03/06/2024, 11/02/19 23 O2 ASSESSMENT COMPLETED IN PAST YEAR FOR COPD 04/12/2025 04/12/2024 GFR 05/21/2025 11/21/2024, 10/23, 10/31/2024, Additional history exists Depression Screening 08/06/2025 08/06/2024 CKD HGB USE SMARTSET 17746 11/21/202511/21, 11/21/2024, 11/07/2024, Additional history exists DTap/Tdap [...] this encounter Medical Devices Implanted Type Area Railroad Police Device Identifier Shelf Expiration Date Model / Serial / Lot Lens Intraoc 22.5 - [id number] - [id number] Implanted:Qty: 1 on 05/22/2018 by Jasbir Maurer MD at [facility] Right: Eye BAUSCH & LOMB 11/22/2022 [id number] / [id number] / [id number] Lens Intraoc 21.0 - [id number] - [id number] Implanted:Qty: 1 on 06/05/2018 by Jasbir Maurer MD at OR [facility] Left: Eye BAUSCH & LOMB 12/20/2022 [id number] / [id number] / Duraclip 16mm Xlg Repostn - [id number] Implanted:Qty: 1 on 04/12/2024 by Edilberto Lujan MD at OR [facility] [employer] NACHO [id number] 12/08/2024 [id number] / / [id number] Duraclip 16mm Xlg Repostn - [id number] Implanted:Qty: 1 on 04/12/2024 by Edilberto Lujan MD at OR [facility] [employer] [id number] 12/08/2024 [id number] / / [id number] Duraclip 16mm Xlg Repostn - [id number] Implanted:Qty: 1 on 04/12/2024 by Edilberto Lujan MD at OR [facility] [employer] [id number] 12/08/2024 [id number] / / [id number] documented as of this encounter Visit Diagnoses [...] hemoglobin A1c goal of less than 8.0% ([facility]) Gastro-esophageal reflux disease without esophagitis Esophageal reflux [...] diabetic peripheral angiopathy without gangrene, unspecified whether meterman insulin use (HCC) Coronary artery disease involving burns paiute coronary artery of burns paiute heart without angina pectoris Hypertensive heart and [...] mitral valve regurgitation Coronary artery disease involving burns paiute coronary artery of burns paiute heart without angina pectoris Paroxysmal atrial fibrillation [...] mitral valve regurgitation Coronary artery disease involving burns paiute coronary artery of burns paiute heart without angina pectoris Stage 3b chronic [...] infection Acute apical periodontitis of pulpal origin Canker sores oral- Primary Oral aphthae Periodontal disease Unspecified gingival and periodontal disease Dyslipidemia Other and unspecified hyperlipidemia Chronic diastolic 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 (HCC) documented in this encounter Advance [...] patient or by statute hierarchy) Care Teams Enterprise Sales Person Relationship Specialty Start Date End Date Michael Hinton MD [address] [place] [address] PCP - General Family Medicine 08/07/17 documented as of this encounter
--- OUTSIDE RECORDS SUMMARY | 2025-03-05 02:20 | External Medical Summary | Summary of Care ---
Author Name Unknown Organization [facility] Address [address] [place] [address] Phone [phone] Care Team Providers Care Principal Data Architect Name Role Phone Michael Hinton MD Primary Care Provider [phone] Reason for Visit * Reason Onset Date Comments Nurse Documentation 11/14/2024 [employer] s/Advance Care Planning Encounter Details Date Type Department Care Team (Late st Contact Info) Description 11/14/2024 Telephone Care Coordination [address] [place] [address] Praveena Durán LPN Nurse Documentation ([employer]ices/Advance.. . Allergies Active Allergy Reactions Criticality Noted Date Comments Fabiano Inhibitors Cough 06/09/2017 Carbidopa High 08/30/2024 Other Reaction(s): constipation Carbidopa W-Levodopa 03/17/2021 Constipation Levodopa High 08/30/2024 Other Reaction(s): constipation Nsaids Rash 05/17/2018 Contraindicated per dance studio manager documented as of this encounter (statuses [...] 90 Tablet 3 08/27/2024 12:35 PM EST 4 Active Potassium Chloride 20 [...] mitral valve regurgitation,Co ronary artery disease involving [place] coronary artery of [place] heart without angina pectoris,Stage 3b chronic [...] have staff contact office to notify of [facility] recommendation, possibly consider d.jonny maxzide and maximize lasix? Suspect his dry [...] Plan (08/08/2024 3:17 PM EDT): Follows with [facility] hematology Routine labs monitored by hem/onc Labs pending today Iron infusion 08/02 Blood transfusion 08/05 Assessment & Plan (07/15/2024 6:05 PM EDT): Follows with [facility] hematology Routine labs monitored by hem/onc Update CBC next week Assessment & Plan (03/13/2024 11:24 AM EDT): Follows with [facility] hematology Routine labs monitored by hem/onc Update CBC tomorrow PRBC transfusions 01/2024, 02/2024 Assessment & Plan (10/17/2023 9:43 AM EST): Followed closely by [facility] hematology. No identified cause of HUNTER. Weekly labs monitored by hem/onc. Most recent hgb 8.7 Assessment & Plan (05/02/2023 1:04 PM EDT): Followed closely by [facility] hematology. No identified cause of HUNTER. Weekly labs monitored by hem/onc. Most recent hgb stable 10.5. Assessment & Plan (03/28/2023 1:27 PM EDT): Received blood transfusion 03/24 -will follow-up CBC on 03/30 -continue ferrous sulfate. Dose once daily. Med list updated Assessment & Plan (10/19/2022 1:20 PM EST): Followed by hem/onc. Had severe anemia in Aug with drop to 4.3. [facility] now monitoring counts weekly. 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 Please prioritize completion of conversation and documentation in the ACP activity. Conversation metrics needed in ACP note: Understanding of Illness Understanding of Prognosis Hopes Fears Surrogate Decision Maker POLST Reminder serious illness conversation needs to be entered in the new ACP activity flowsheet rows 11/05/2024. Thank you, [employer] [phone] documented in this encounter Plan of Treatment Upcoming Encounters Date Type Department Care Team (Late st Contact Info) Description 11/21/2024 8:05 AM EST Laboratory Lab Mobile Phlebotomy [facility] [address] [facility] [place] [address] Mvmg, Gml Mobile Home Draw [address] [facility] [place] [address] 11/21/2024 12:00 PM EST Office Visit Gastroenterology, [facility] [address] [facility] [place] [address] Cisco Buitrago CRNP [address] [facility] [place] [address] 11/22/2024 2:30 PM EST Home Visit [facility] [address] [facility] [place] [address] Peggy De RN [address] [place] [address] 03/12/2025 3:30 PM EDT Home Visit Care at Home [address] [place] [address] Betina Jacob PA-C [address] [place], [place] [id number] 03/18/2025 11:15 AM EDT Office Visit Urology, [facility], [address] [place] [address] Kalpesh Funes MD [address] [place] [address] Health Maintenance Due Date Last Done Comments Alpha-1 Antitrypsin 1963 Diabetic Foot Exam 03/27/2021 03/27/2020, 08/23/2018 Diabetic Eye Exam 11/01/2023 11/01/2022, , 11/01/2022, Additional history exists Albumin/Creatinine Ratio 12/27/2023 023, 03/08/2019, 04/09/2014 HbA1c 11/23/2024 05/23/2024, 03/24, 12/26/2022, Additional history exists CKD PHOS USE SMARTSET 39227 12/07/202411/23, 12/26/2022, 06/21/2021 Adult Wellness Visit 03/06/2025 03/06/2024, 11/02/19 23 O2 ASSESSMENT COMPLETED IN PAST YEAR FOR COPD 04/12/2025 04/12/2024 GFR 05/07/2025 11/07/2024, 06/2025, 10/24/2024, Additional history exists Depression Screening 08/06/2025 08/06/2024 CKD HGB USE SMARTSET 06413 11/07/202511/07, 11/07/2024, 10/24/2024, Additional history exists DTap/Tdap [...] this encounter Medical Devices Implanted Type Area Worm Picker Device Identifier Shelf Expiration Date Model / Serial / Lot Lens Intraoc 22.5 - [id number] - [id number] Implanted:Qty: 1 on 05/22/2018 by Jasbir Maurer MD at OR [facility] Right: Eye BAUSCH [employer] LOMB 11/22/2022 [id number] / [id number] / [id number] Lens Intraoc 21.0 - [id number] - [id number] Implanted:Qty: 1 on 06/05/2018 by Jasbir Muarer MD at OR [facility] Left: Eye BAUSCH & LOMB 12/20/2022 [id number] / [id number] / Duraclip 16mm Xlg Repostn - [id number] Implanted:Qty: 1 on 04/12/2024 by Edilberto Lujan MD at OR [facility] [employer]ACH[employer] [id number] 12/08/2024 [id number] / / [id number] Duraclip 16mm Xlg Repostn - [id number] Implanted:Qty: 1 on 04/12/2024 by Edilberto Lujan MD at OR [facility] [employer] [id number] 12/08/2024 [id number] / / [id number] Duraclip 16mm Xlg Repostn - [id number] Implanted:Qty: 1 on 04/12/2024 by Edilberto Lujan MD at OR [facility] [employer] [id number] 12/08/2024 [id number] / / [id number] documented as of this encounter Advance Directives [...] patient or by statute hierarchy) Care Teams Principal Data Architect Relationship Specialty Start Date End Date Michael Hinton MD [address] [place] [address] PCP - General Family Medicine 08/07/17 documented as of this encounter
--- OUTSIDE RECORDS SUMMARY | 2025-03-05 02:20 | External Medical Summary | Summary of Care ---
Author Name Unknown Organization [facility] Address [address] [place] [address] Phone [phone] Care Team Providers Care Template Worker Name Role Phone Michael Hinton MD Primary Care Provider [phone] Encounter Details Date Type Department Care Team (Late st Contact Info) Description 11/11/2024 Population Health External Data Unspecified Department Allergies Active Allergy Reactions Criticality Noted Date Comments Fabiano Inhibitors Cough 06/09/2017 Carbidopa High 08/30/2024 Other Reaction(s): constipation Carbidopa W-Levodopa 03/17/2021 Constipation Levodopa High 08/30/2024 Other Reaction(s): constipation Nsaids Rash 05/17/2018 Contraindicated per operational communication chief documented as of this encounter (statuses as of 11/11/2024) Medications Glucose Blood (ONETOUCH VERIO) STRPIndications: Type [...] mitral valve regurgitation,Co ronary artery disease involving [place] coronary artery of [...] as of this encounter (statuses as of 11/11/2024) Active Problems Problem Noted Date Diagnosed Date [...] have staff contact office to notify of [facility] recommendation, possibly consider d.c maxzide and [...] Plan (08/08/2024 3:17 PM EDT): Follows with [facility] hematology Routine labs monitored by hem/onc Labs pending today Iron infusion 08/02 Blood transfusion 08/05 Assessment & Plan (07/15/2024 6:05 PM EDT): Follows with [facility] hematology Routine labs monitored by hem/onc Update CBC next week Assessment & Plan (03/13/2024 11:24 AM EDT): Follows with [facility] hematology Routine labs monitored by hem/onc Update CBC tomorrow PRBC transfusions 01/2024, 02/2024 Assessment & Plan (10/17/2023 9:43 AM EST): Followed closely by [facility] hematology. No identified cause of HUNTER. Weekly labs monitored by hem/onc. Most recent hgb 8.7 Assessment & Plan (05/02/2023 1:04 PM EDT): Followed closely by [facility] hematology. [...] anemia in Aug with drop to 4.3. [facility] now monitoring counts weekly. Pt very [...] (09/01/2024): Follows with Dr Shannon Zhang in [place] via telemed for [place] Assessment & Plan [...] of sioux heart without angina pectoris 03/21/2018 Assessment & [...] as of this encounter (statuses as of 11/11/2024) Resolved Problems Problem Noted Date Diagnosed Date [...] scanned document from 11/13/[address] [facility]. 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 Not on fi le Not on file Not on file Not on file Not on file documented as of this encounter Plan of Treatment Upcoming Encounters Date Type Department Care Team (Late st Contact Info) Description 11/14/2024 2:30 PM EST [facility] [address] [place] [address] Peggy De RN [address] [place] [address] 11/21/2024 8:05 AM EST Laboratory Lab Mobile Phlebotomy [facility] [address] [facility] [place] [address] Mvmg, Gml Mobile Home Draw [address] [facility] [place] [address] 11/21/2024 12:00 PM EST Office Visit Gastroenterology, [facility] [address] [facility] [place] [address] Cisco Buitrago CRNP [address] [place] [address] 03/12/2025 3:30 PM EDT Home Visit Care at Home [address] [place] [address] Betina Jacob PA-C [address] [place] [address] 03/14/2025 4:00 PM EDT Office Visit Cardiology, [facility] [address] [place] [address] Dominick Benz DO [address] [place] [address] 03/18/2025 11:15 AM EDT [facility], [facility] [place] [address] Kalpesh Funes MD [address] [place] [address] Health Maintenance Due Date Last Done Comments Alpha-1 Antitrypsin 1963 Diabetic Foot Exam 03/27/2021 03/27/2020, 08/23/2018 Diabetic Eye Exam 11/01/2023 11/01/2022, , 11/01/2022, Additional history exists Albumin/Creatinine Ratio 12/27/2023 023, 03/08/2019, 04/09/2014 HbA1c 11/23/2024 05/23/2024, 03/24, 12/26/2022, Additional history exists CKD PHOS USE SMARTSET 02984 12/07/202411/23, 12/26/2022, 06/21/2021 Adult Wellness Visit 03/06/2025 03/06/2024, 11/02/19 23 O2 ASSESSMENT COMPLETED IN PAST YEAR FOR COPD 04/12/2025 04/12/2024 GFR 05/07/2025 11/07/2024, 06/2025, 10/24/2024, Additional history exists Depression Screening 08/06/2025 08/06/2024 CKD HGB USE SMARTSET 86539 11/07/202511/07, 11/07/2024, 10/24/2024, Additional history exists DTap/Tdap [...] encounter Medical Devices Implanted Type Area Continuous Improvement Consultant Device Identifier Shelf Expiration Date Model / Serial / Lot Lens Intraoc 22.5 - [id number] - [id number] Implanted:Qty: 1 on 05/22/2018 by Jasbir Maurer MD at OR [facility] Right: Eye BAUSCH & LOMB 11/22/2022 [id number] / [id number] / [id number] Lens Intraoc 21.0 - [id number] - [id number] Implanted:Qty: 1 on 06/05/2018 by Jasbir Maurer MD at OR [facility] Left: Eye BAUSCH & LOMB 12/20/2022 [id number] / [id number] / Duraclip 16mm Xlg Repostn - [id number] Implanted:Qty: 1 on 04/12/2024 by Edilberto Lujan MD at OR [facility] [employer] [id number] 12/08/2024 [id number] / / [id number] Duraclip 16mm Xlg Repostn - [id number] Implanted:Qty: 1 on 04/12/2024 by Edilberto Lujan MD at OR [facility] [employer] [id number] 12/08/2024 [id number] / / [id number] Duraclip 16mm Xlg Repostn - [id number] Implanted:Qty: 1 on 04/12/2024 by Edilberto Lujan MD at OR [facility] [employer] [id number] 12/08/2024 [id number] / / [id number] documented as of this encounter Advance Directives [...] Agents on File Name Relationship Healthcare Agent [facility] Communication sAhley Jose Spouse Health Care Power of Attor mayela Care Teams Template Worker Relationship Specialty Start Date End Date Michael Hinton MD [address] [place] [address] PCP - General Family Medicine 08/07/17 documented as of this encounter
--- OUTSIDE RECORDS SUMMARY | 2025-03-05 02:20 | External Medical Summary | Summary of Care ---
Author Name Unknown Organization [facility] Address [address] [place] [address] Phone [phone] Care Team Providers Care Family Practice Medical Doctor Name Role Phone Michael Hinton MD Primary Care Provider [phone] Reason for Visit * Reason Onset Date Comments Test Results 11/05/2024 Encounter Details Date Type Department Care Team (Late st Contact Info) Description 11/05/2024 Telephone Cardiology, [facility] [address] [place] [address] Dominick Benz, [address] [employer] [place] [address] Test Results Allergies Active Allergy Reactions Criticality Noted Date Comments Fabiano Inhibitors Cough 06/09/2017 Carbidopa High 08/30/2024 Other Reaction(s): constipation Carbidopa W-Levodopa 03/17/2021 Constipation Levodopa High 08/30/2024 Other Reaction(s): constipation Nsaids Rash 05/17/2018 Contraindicated per weed controller documented as of this encounter (statuses as of 11/13/2024) Medications Glucose Blood (ONETOUCH VERIO) STRPIndications: Type [...] mitral valve regurgitation,Co ronary artery disease involving [place] coronary artery of [place] heart without angina pectoris,Stage 3b chronic kidney [...] as of this encounter (statuses as of 11/13/2024) Active Problems Problem Noted Date Diagnosed Date [...] staff contact office to notify of [facility] recommendation, possibly consider d.c maxzide and [...] in Aug with drop to 4.3. [facility] now monitoring counts weekly. Pt very [...] (09/01/2024): Follows with Dr Shannon Zhang in [place] via telemed for PD Assessment & Plan [...] knees 03/21/2018 Coronary artery disease invo lving [place] coronary artery of [place] heart without angina pectoris 03/21/2018 Assessment & [...] as of this encounter (statuses as of 11/13/2024) Resolved Problems Problem Noted Date Diagnosed Date [...] as of this encounter (statuses as of 11/13/2024) Immunizations Name Administration Dates Next Due COVID-19 mRNA, LNP-s, No Pre serve, 2-Dose Series ([email or web address].COM) 11/03/2021,12/19/2020,11/28/2020 Covid-19 Ad26, Single Dose (Soy/J&J) 12/19/2020,11/28/2020 [...] 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 Repeat chemistry panel performed in follow-up of initiation of Jardiance and adjustment and torsemide Spouse reports that he is tolerating Jardiance 10 mg daily. Weight is down to 159 pounds. Lower extremity swelling is doing well. Plan: Continue torsemide 60 mg (3 x 20 mg tablets ) on Mondays , Monday, and Fridays, and two tablets or 40 mg on the other days. Continue Jardiance 10 mg. Dominick Benz DO documented in this encounter Plan of Treatment Upcoming Encounters Date Type Department Care Team (Late st Contact Info) Description 11/21/2024 8:05 AM EST Laboratory Lab Mobile Phlebotomy [facility] [address] [facility] [place] [address] Mvmg, Gml Mobile Home Draw [address] [facility] [place] [address] 11/21/2024 12:00 PM EST Office Visit G[facility], [facility] [address] [place] [address] Cisco Buitrago CRNP [address] [place] [address] 11/22/2024 2:30 PM EST [facility] [place] [address] [place] [address] Peggy De, RN [address] [place] [address] 03/12/2025 3:30 PM EDT Home Visit Care at Home [address] [place] [address] Betina Jacob PA-C [address] [facility] [place] [address] 03/14/2025 4:00 PM EDT Office Visit Cardiology, [facility] [address] [place] [address] Dominick Benz DO [address] [place] [address] 03/18/2025 11:15 AM EDT Office Visit Urology, [facility] [address] [place] [address] Kalpesh Funes MD [address] [place] [address] Health Maintenance Due Date Last Done Comments Alpha-1 Antitrypsin 1962 Diabetic Foot Exam 03/27/2021 03/27/2020, 08/23/2018 Diabetic Eye Exam 11/01/2023 11/01/2022, , 11/01/2022, Additional history exists Albumin/Creatinine Ratio 12/27/2023 023, 03/08/2019, 04/09/2014 HbA1c 11/23/2024 05/23/2024, 03/24, 12/26/2022, Additional history exists CKD PHOS USE SMARTSET 93937 12/07/202411/23, 12/26/2022, 06/21/2021 Adult Wellness Visit 03/06/2025 03/06/2024, 11/02/19 23 O2 ASSESSMENT COMPLETED IN PAST YEAR FOR COPD 04/12/2025 04/12/2024 GFR 05/07/2025 11/07/2024, 0 06/2025, 10/24/2024, Additional history exists Depression Screening 08/06/2025 08/06/2024 CKD HGB USE SMARTSET 08880 11/07/202511/07, 11/07/2024, 10/24/2024, Additional history exists DTap/Tdap [...] this encounter Medical Devices Implanted Type Area Pediatric Neurologist Device Identifier Shelf Expiration Date Model / Serial / Lot Lens Intraoc 22.5 - [id number] - [id number] Implanted:Qty: 1 on 05/22/2018 by Jasbir Maurer MD at OR [facility] Right: Eye BAUSCH & LOMB 11/22/2022 [id number] / [id number] / [id number] Lens Intraoc 21.0 - [id number] - [id number] Implanted:Qty: 1 on 06/05/2018 by Jasbir Maurer MD at OR [facility] Left: Eye BAUSCH & LOMB 12/20/2022 [id number] / [id number] / Duraclip 16mm Xlg Repostn - [id number] Implanted:Qty: 1 on 04/12/2024 by Edilberto Lujan MD at OR [facility] [employer] [id number] 12/08/2024 [id number] / / [id number] Duraclip 16mm Xlg Repostn - [id number] Implanted:Qty: 1 on 04/12/2024 by Edilberto Lujan MD at OR [facility] [employer] [id number] 12/08/2024 [id number] / / [id number] Duraclip 16mm Xlg Repostn - [id number] Implanted:Qty: 1 on 04/12/2024 by Edilberto Lujan MD at OR [facility] [employer] [id number] 12/08/2024 [id number] / / [id number] documented as of this encounter Advance Directives [...] Agents on File Name Relationship Healthcare Agent [facility] Communication Ashley Fantasma Jose Spouse Health Care Power of Attor belfair Care Teams Family Practice Medical Doctor Relationship Specialty Start Date End Date Michael Hinton MD [address] [place] [address] PCP - General Family Medicine 08/07/17 documented as of this encounter
--- OUTSIDE RECORDS SUMMARY | 2025-03-05 02:20 | External Medical Summary | Summary of Care ---
Author Name Unknown Organization [facility] Address [address] [place] [address] Phone [phone] Care Team Providers Care Regulatory Compliance Specialist Name Role Phone Michael Hinton MD Primary Care Provider [phone] Reason for Visit * Reason Onset Date Comments Appointment 11/11/2024 Encounter Details Date Type Department Care Team (Late st Contact Info) Description 11/11/2024 Telephone [facility] [place] [address] [place] [address] [phone] Ashley Carmen, LARRY [address] [place] [address] Appointment (//) Allergies Active Allergy Reactions Criticality Noted Date Comments Fabiano Inhibitors Cough 06/09/2017 Carbidopa High 08/30/2024 Other Reaction(s): constipation Carbidopa W-Levodopa 03/17/2021 Constipation Levodopa High 08/30/2024 Other Reaction(s): constipation Nsaids Rash 05/17/2018 Contraindicated per home school liaison officer documented as of this encounter (statuses [...] mitral valve regurgitation,Co ronary artery disease involving [place] coronary artery of [place] heart without angina pectoris,Stage 3b chronic kidney [...] have staff contact office to notify of [facility] recommendation, possibly consider d.c maxzide [...] anemia in Aug with drop to 4.3. [facility] now monitoring counts weekly. 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 Not on fi le Not on file Not on file Not on file Not on file documented as of this encounter Miscellaneous Notes * Telephone Encounter - Ashley Carmen OSA - 11/11/2024 2:47 PM EST Email template request to cx and rs the appt from 11/14@230 with RNCM I found 11/22@230 instead and lmom of this change with a return cb if there were conflicts documented in this encounter Plan of Treatment Upcoming Encounters Date Type Department Care Team (Late st Contact Info) Description 11/21/2024 8:05 AM EST Laboratory Lab Mobile Phlebotomy [facility] [address] [place] [address] [facility], Gml Mobile Home Draw [address] [place] [address] 11/21/2024 12:00 PM EST Office Visit Gastroenterology, [facility] [address] [place] [address] Cisco Buitrago CRNP [address] [place] [address] 11/22/2024 2:30 PM EST [facility] Visit [facility], [facility] [address] [place] [address] Peggy De RN [address] [place] [address] 03/12/2025 3:30 PM EDT Home Visit Care at Home [address] [place] [address] Betina Jacob PA-C [address] [place] [address] 03/14/2025 4:00 PM EDT Office Visit Cardiology, [facility] [address] [place] [address] Dominick Benz DO [address] [place] [address] 03/18/2025 11:15 AM EDT Office Visit Urology, [facility] [address] [place] [address] Kalpesh Funes MD [address] [place] [address] Health Maintenance Due Date Last Done Comments Alpha-1 Antitrypsin 1963 Diabetic Foot Exam 03/27/2021 03/27/2020, 08/23/2018 Diabetic Eye Exam 11/01/2023 11/01/2022, , 11/01/2022, Additional history exists Albumin/Creatinine Ratio 12/27/2023 023, 03/08/2019, 04/09/2014 HbA1c 11/23/2024 05/23/2024, 03/24, 12/26/2022, Additional history exists CKD PHOS USE SMARTSET 09847 12/07/202411/23, 12/26/2022, 06/21/2021 Adult Wellness Visit 03/06/2025 03/06/2024, 11/02/19 23 O2 ASSESSMENT COMPLETED IN PAST YEAR FOR COPD 04/12/2025 04/12/2024 GFR 05/07/2025 11/07/2024, 06/2025, 10/24/2024, Additional history exists Depression Screening 08/06/2025 08/06/2024 CKD HGB USE SMARTSET 36127 11/07/202511/07, 11/07/2024, 10/24/2024, Additional history exists DTap/Tdap [...] this encounter Medical Devices Implanted Type Area Ingot Weigher Device Identifier Shelf Expiration Date Model / Serial / Lot Lens Intraoc 22.5 - [id number] - [id number] Implanted:Qty: 1 on 05/22/2018 by Jasbir Maurer MD at OR [facility] Right: Eye BAUSCH [employer] LOMB 11/22/2022 [id number] / [id number] / [id number] Lens Intraoc 21.0 - [id number] - [id number] Implanted:Qty: 1 on 06/05/2018 by Jasbir Maurer MD at OR [facility] Left: Eye BAUSCH & LOMB 12/20/2022 [id number] / [id number] / Duraclip 16mm Xlg Repostn - [id number] Implanted:Qty: 1 on 04/12/2024 by Edilberto Lujan MD at OR [facility] [employer] [id number] 12/08/2024 [id number] / / [id number] Duraclip 16mm Xlg Repostn - [id number] Implanted:Qty: 1 on 04/12/2024 by Edilberto Lujan MD at OR [facility] [employer] [id number] 12/08/2024 [id number] / / [id number] Duraclip 16mm Xlg Repostn - [id number] Implanted:Qty: 1 on 04/12/2024 by Edilberto Lujan MD at OR [facility] [employer] [id number] 12/08/2024 [id number] / / [id number] documented as of this encounter Advance Directives [...] Power of Attor mayela Care Teams Regulatory Compliance Specialist Relationship Specialty Start Date End Date Michael Hinton MD [address] [place] [address] PCP - General Family Medicine 08/07/17 documented as of this encounter
--- OUTSIDE RECORDS SUMMARY | 2025-03-05 02:21 | External Medical Summary ---
Author Name Unknown Address Unknown Organization K0G:LABORATORY [facility] [address] - [address] [place] [id number] Laboratory Report Ordering Provider Test Date Status GUERRERO CHAUHAN 11/07/2024 10:10:00 Final Observation Date Value Abnormality Reference (Units ) Status SYNC LEUKOCYTES IN BLOOD BY AUTOMATED COUNT 11/07/2024 10:10:00 4.02 4.00-10.80 (K/uL) Final Segs 11/07/2024 10:10:00 70.2 40.0-75.0 (%) Final Lymphs % 11/07/2024 10:10:00 21.4 18.0-42.0 (%) Final Monos 11/07/2024 10:10:00 7.2 1.0-11.0 (%) Final Eosinophils 11/07/2024 10:10:00 1.0 0.0-6.0 (%) Final Basos 11/07/2024 10:10:00 0.2 0.0-2.0 (%) Final Absolute Segs 11/07/2024 10:10:00 2.82 1.80-7.70 (K/uL) Final Lymphs, absolute 11/07/2024 10:10:00 0.86 Below low normal 1.00-4.80 (K/ul) Final Monos, Abs 11/07/2024 10:10:00 0.29 0.00-1.10 (K/uL) Final Eos, Abs 11/07/2024 10:10:00 0.04 0.00-0.70 (K/uL) Final Basos, Abs 11/07/2024 10:10:00 0.01 0.00-0.20 (K/uL) Final Performing Location [facility] 0 - [address] [place] [id number]
--- OUTSIDE RECORDS SUMMARY | 2025-03-05 02:21 | External Medical Summary ---
Author Name Unknown Address Unknown Organization K01:LABORATORY [facility] - [address] [place] [address] Laboratory Report Ordering Provider Test Date Status GUERRERO CHAUHAN 11/07/2024 10:10:00 Final Observation Date Value Abnormality Reference (Units ) Status Ferritin 11/07/2024 10:10:00 465 Above high normal 30 -400 (ng/mL) Final Performing Location [facility] [address] [facility] [address] [place] [address]
--- OUTSIDE RECORDS SUMMARY | 2025-03-05 02:21 | External Medical Summary ---
Author Name Unknown Address Unknown Organization [facility] [address] [place] [address] Laboratory Report Ordering Provider Test Date Status GUERRERO CHAUHAN 11/07/2024 10:10:00 Final Observation Date Value Abnormality Reference (Units ) Status BUN 11/07/2024 10:10:00 28 Above high normal 6-20 (mg/dL) Final Creatinine 11/07/2024 10:10:00 1.3 Above high normal 0.6-1.2 (mg/dL) Final Glomerular filtration rate/1.73 sq M.predicted [Volume Rate/Area] in Serum, Plasma or Blood by Creatinine-based formula (CKD-EPI) 11/07/2024 10:10:00 55 Below low normal >=60 (mL/min) Final eGFR is calculated based on the CKD-EPI 2020 equation. Sodium 11/07/2024 10:10:00 140 135-146 (m mol/L) Final Potassium 11/07/2024 10:10:00 4.1 3.5-5.1 (m mol/L) Final Cl 11/07/2024 10:10:00 104 98-107 (mm ol/L) Final CO2 11/07/2024 10:10:00 23 22-32 (mmo l/L) Final Anion gap 11/07/2024 10:10:00 13 7-15 (mmol /L) Final Glucose 11/07/2024 10:10:00 210 Above high normal 70 -120 (mg/dL) Final Calcium 11/07/2024 10:10:00 9.4 8.4-10.2 ( mg/dL) Final Performing Location LABORATORY [facility] [address] 0 - [address] [place] [address]
--- OUTSIDE RECORDS SUMMARY | 2025-03-05 02:21 | External Medical Summary | Summary of Care ---
Author Name Unknown Organization [facility] Address [address] [place] [address] Phone [phone] Care Team Providers Care Corral Boss Name Role Phone Michael Hinton MD Primary Care Provider +1 [phone] Reason for Visit * Reason Onset Date Comments Test Results 11/04/2024 Encounter Details Date Type Department Care Team (Late st Contact Info) Description 11/04/2024 Telephone Family Practice [facility] [address] [place] [address] Eduardo Groves MD [address] [place] [address] Test Results Allergies Active Allergy Reactions Criticality Noted Date Comments Fabiano Inhibitors Cough 06/09/2017 Carbidopa High 08/30/2024 Other Reaction(s): constipation Carbidopa W-Levodopa 03/17/2021 Constipation Levodopa High 08/30/2024 Other Reaction(s): constipation Nsaids Rash 05/17/2018 Contraindicated per president of the [place] documented as of this encounter (statuses as of 11/07/2024) Medications Glucose Blood (ONETOUCH VERIO) STRPIndications: Type [...] mitral valve regurgitation,Co ronary artery disease involving [place] coronary artery of [place] heart without angina pectoris,Stage 3b chronic kidney [...] as of this encounter (statuses as of 11/07/2024) Active Problems Problem Noted Date Diagnosed Date [...] have staff contact office to notify of [facility] recommendation, possibly consider d.c maxzide and maximize [...] anemia in Aug with drop to 4.3. [facility] now monitoring counts weekly. Pt very pale [...] disease Overview (09/01/2024): Follows with Dr Shannon Zhnag in [place] via telemed for PD Assessment & Plan [...] knees 03/21/2018 Coronary artery disease invo lving [place] coronary artery of [place] heart without angina pectoris 03/21/2018 Assessment & [...] as of this encounter (statuses as of 11/07/2024) Resolved Problems Problem Noted Date Diagnosed Date [...] as of this encounter (statuses as of 11/07/2024) Immunizations Name Administration Dates Next Due COVID-19 mRNA, LNP-s, No Pre serve, 2-Dose Series ([employer]) 11/03/2021,12/19/2020,11/28/2020 Covid-19 Ad26, Single Dose (Soy/J&J) 12/19/2020,11/28/2020 [...] 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 Relayed information from Caitlyn to . voiced understanding. stated that her and pt will talk and get back to the office if pt would like to have the ultrasound guided injection * Telephone Encounter - Page Rader LPN - 11/06/2024 10:54 AM EST Attempted to call, no answer, left message to return call. When patient calls back, please give the message from provider. Sent patient a [facility] message: Yes fbi field agent may give this message: No * Telephone Encounter - Mago Loyd LPN - 11/05/2024 11:43 AM EST Attempted to call patient, there was no answer, left voicemail. When patient returns call, ok for LARRY to relay message, please refer to below documentation. If needed, can transfer to dedicated nurse line. See Caitlyn's note below * Telephone Encounter - Eduardo Groves MD - 11/04/2024 7:08 PM EST Xray results Xray results show NO fracture. 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 He could be considered for an ultrasound guided injection to help with the pain. Please call his next of kin - if he would be willing to do the injection can refer him to pain mgmtfor this. Otherwise he can continue the patches/moist heat/pain meds in the meantime. Thanks, documented in this encounter Plan of Treatment Upcoming Encounters Date Type Department Care Team (Late st Contact Info) Description 11/14/2024 2:30 PM EST Home Visit [facility] [place], [facility] [address] [place] [address] Peggy De, RN [address] [place] [address] 11/21/2024 8:05 AM EST Laboratory Lab Mobile Phlebotomy [facility] [address] [employer] [facility] [place] [address] M[facility], Gml Mobile Home Draw [address] [facility] [place] [address] 11/21/2024 12:00 PM EST Office Visit Gastroenterology, [facility] [address] [place] [address] Cisco Buitrago CRNP [address] [place] [address] 03/12/2025 3:30 PM EDT Home Visit Care at Home [address] [place] [address] Betina Jacob PA-C [address] [place] [address] 03/14/2025 4:00 PM EDT Office Visit Cardiology, [facility] [place] [address] Dominick Benz DO [address] [place] [address] 03/18/2025 11:15 AM EDT Office Visit Urology, [facility] [address] [place] [address] Kalpesh Funes MD [address] [place] [address] Health Maintenance Due Date Last Done Comments Alpha-1 Antitrypsin 1962 Diabetic Foot Exam 03/27/2021 03/27/2020, 08/23/2018 Diabetic Eye Exam 11/01/2023 11/01/2022, , 11/01/2022, Additional history exists Albumin/Creatinine Ratio 12/27/2023 023, 03/08/2019, 04/09/2014 HbA1c 11/23/2024 05/23/2024, 03/24, 12/26/2022, Additional history exists CKD PHOS USE SMARTSET 62795 12/07/202411/23, 12/26/2022, 06/21/2021 Adult Wellness Visit 03/06/2025 03/06/2024, 11/02/19 23 O2 ASSESSMENT COMPLETED IN PAST YEAR FOR COPD 04/12/2025 04/12/2024 GFR 04/30/2025 10/31/2024, 11/2024, 10/10/2024, Additional history exists Depression Screening 08/06/2025 08/06/2024 CKD HGB USE SMARTSET 87893 10/24/202510/24, 10/24/2024, 10/10/2024, Additional history exists DTap/Tdap Vaccines (4 - [...] this encounter Medical Devices Implanted Type Area Billet Straightener Device Identifier Shelf Expiration Date Model / Serial / Lot Lens Intraoc 22.5 - [id number] - [id number] Implanted:Qty: 1 on 05/22/2018 by Jasbir Maurer MD at OR [facility] Right: Eye BAUSCH [employer] LOM[employer] 11/22/2022 [id number] / [id number] / [id number] Lens Intraoc 21.0 - [id number] - [id number] Implanted:Qty: 1 on 06/05/2018 by Jasbir Maurer MD at OR [facility] Left: Eye BAUSCH & LOMB 12/20/2022 [id number] / [id number] / Duraclip 16mm Xlg Repostn - [id number] Implanted:Qty: 1 on 04/12/2024 by Edilberto Lujan MD at OR [facility] [employer] [id number] 12/08/2024 [id number] / / [id number] Duraclip 16mm Xlg Repostn - [id number] Implanted:Qty: 1 on 04/12/2024 by Edilberto Lujan MD at OR [facility] [employer] [id number] 12/08/2024 [id number] / / [id number] Duraclip 16mm Xlg Repostn - [id number] Implanted:Qty: 1 on 04/12/2024 by Edilberto Lujan MD at OR [facility] [employer] [id number] 12/08/2024 [id number] / / [id number] documented as of this encounter Advance Directives [...] Care Power of Attor mayela Care Teams Corral Boss Relationship Specialty Start Date End Date Michael Hinton MD [address] [place] [address] PCP - General Family Medicine 08/07/17 documented as of this encounter
--- OUTSIDE RECORDS SUMMARY | 2025-03-05 02:21 | External Medical Summary ---
Author Name Unknown Address Unknown Organization K0G:LABORATORY [facility] [address] - [address] [place] [address] Laboratory Report Ordering Provider Test Date Status GUERRERO CHAUHAN 11/07/2024 10:10:00 Final Observation Date Value Abnormality Reference (Units ) Status WBC, Total 11/07/2024 10:10:00 4.02 4.00-10.8 0 (K/uL) Final RBC 11/07/2024 10:10:00 3.56 4.50-5.25 (M/uL) Final Hemoglobin 11/07/2024 10:10:00 11.6 Below low normal 14 .0-16.8 (g/dL) Final HCT 11/07/2024 10:10:00 35.9 Below low normal 40. 0-48.4 (%) Final MCV 11/07/2024 10:10:00 100.8 82.0-99.5 (fL) Final MCH 11/07/2024 10:10:00 32.6 27.0-34.0 (pg) Final MCHC 11/07/2024 10:10:00 32.3 32.0-36.0 (g/dL) Final RDW 11/07/2024 10:10:00 16.6 11.5-15.5 (%) Final Platelets 11/07/2024 10:10:00 111 Below low normal 140 -400 (K/uL) Final MPV 11/07/2024 10:10:00 9.8 6.6-11.1 ( fL) Final Performing Location [facility] 0 - [address] [place] [address]
--- OUTSIDE RECORDS SUMMARY | 2025-03-05 02:21 | External Medical Summary | Summary of Care ---
Author Name Unknown Organization [facility] Address [address] [place] [address] Phone [phone] Care Team Providers Care Airframe And Power Plant Mechanic Name Role Phone Michael Hinton MD Primary Care Provider [phone] Reason for Visit * Reason Onset Date Comments Test Results 11/04/2024 Encounter Details Date Type Department Care Team (Late st Contact Info) Description 11/04/2024 Telephone Family Practice [facility] [address] [place] [address] Eduardo Groves MD [address] [place] [address] Test Results Allergies Active Allergy Reactions Criticality Noted Date Comments Fabiano Inhibitors Cough 06/09/2017 Carbidopa High 08/30/2024 Other Reaction(s): constipation Carbidopa W-Levodopa 03/17/2021 Constipation Levodopa High 08/30/2024 Other Reaction(s): constipation Nsaids Rash 05/17/2018 Contraindicated per curve cleaner documented as of this encounter (statuses as of 11/06/2024) Medications Glucose Blood (ONETOUCH VERIO) STRPIndications: Type [...] mitral valve regurgitation,Co ronary artery disease involving [place] coronary artery of [place] heart without angina pectoris,Stage 3b chronic kidney [...] as of this encounter (statuses as of 11/06/2024) Active Problems Problem Noted Date Diagnosed Date [...] have staff contact office to notify of [facility] recommendation, possibly consider d.c maxzide and [...] Plan (08/08/2024 3:17 PM EDT): Follows with [facility] hematology Routine labs monitored by hem/onc Labs pending today Iron infusion 08/02 Blood transfusion 08/05 Assessment & Plan (07/15/2024 6:05 PM EDT): Follows with [facility] hematology Routine labs monitored by hem/onc Update CBC next week Assessment & Plan (03/13/2024 11:24 AM EDT): Follows with [facility] hematology Routine labs monitored by hem/onc Update CBC tomorrow PRBC transfusions 01/2024, 02/2024 Assessment & Plan (10/17/2023 9:43 AM EST): Followed closely by [facility] hematology. No identified cause of HUNTER. Weekly labs monitored by hem/onc. Most recent hgb 8.7 Assessment & Plan (05/02/2023 1:04 PM EDT): Followed closely by [facility] hematology. No identified cause of HUNTER. Weekly labs monitored by hem/onc. Most recent hgb stable 10.5. Assessment & Plan (03/28/2023 1:27 PM EDT): Received blood transfusion 03/24 -will follow-up CBC on 03/30 -continue ferrous sulfate. Dose once daily. Med list updated Assessment & Plan (10/19/2022 1:20 PM EST): Followed by hem/onc. Had severe anemia in Aug with drop to 4.3. [facility] now monitoring counts weekly. Pt very [...] (09/01/2024): Follows with Dr Shannon Zhang in [place] via telemed for PD Assessment & Plan [...] knees 03/21/2018 Coronary artery disease invo lving [place] coronary artery of [place] heart without angina pectoris 03/21/2018 Assessment & [...] as of this encounter (statuses as of 11/06/2024) Resolved Problems Problem Noted Date Diagnosed Date [...] as of this encounter (statuses as of 11/06/2024) Immunizations Name Administration Dates Next Due COVID-19 mRNA, LNP-s, No Pre serve, 2-Dose Series ([employer]) 11/03/2021,12/19/2020,11/28/2020 Covid-19 Ad26, Single Dose (Soy/J&J) 12/19/2020,11/28/2020 [...] 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 When patient calls back, please give the message from provider. Sent patient a [facility] message: Yes enrolled agent may give this message: No * [...] Care Team (Late st Contact Info) Description 11/07/2024 8:05 AM EST Laboratory Lab Mobile Phlebotomy [facility] [address] [place] [address] Mvmg, Gml Mobile Home Draw [address] [place] [address] 11/14/2024 2:30 PM EST [facility], [facility] [address] [facility] [place] [address] Peggy De, RN [address] [place] [address] 11/21/2024 8:05 AM EST Laboratory Lab Mobile Phlebotomy [facility] [address] [facility] [place] [address] Mvmg, Gml Mobile Home Draw [address] [facility] [place] [address] 11/21/2024 12:00 PM EST Office Visit Gastroenterology, [facility] [place] [address] Cisco Buitrago CRNP 132 [facility] [place] [address] 03/12/2025 3:30 PM EDT Home Visit Care at Home [address] [place] [address] Betina Jacob PA-C [address] [place], [place] [address] 03/14/2025 4:00 PM EDT Office Visit Cardiology, [facility] [address] [facility] [place] [address] Dominick Benz, [address] [place] [address] 03/18/2025 11:15 AM EDT Office Visit Urology, [facility] [address] [place] [address] Kalpesh Funes MD [address] [place] [address] Health Maintenance Due Date Last Done Comments Alpha-1 Antitrypsin 1962 Diabetic Foot Exam 03/27/2021 03/27/2020, 08/23/2018 Diabetic Eye Exam 11/01/2023 11/01/2022, , 11/01/2022, Additional history exists Albumin/Creatinine Ratio 12/27/2023 023, 03/08/2019, 04/09/2014 HbA1c 11/23/2024 05/23/2024, 03/24, 12/26/2022, Additional history exists CKD PHOS USE SMARTSET 44981 12/07/202411/23, 12/26/2022, 06/21/2021 Adult Wellness Visit 03/06/2025 03/06/2024, 11/02/19 23 O2 ASSESSMENT COMPLETED IN PAST YEAR FOR COPD 04/12/2025 04/12/2024 GFR 04/30/2025 10/31/2024, 11/2024, 10/10/2024, Additional history exists Depression Screening 08/06/2025 08/06/2024 CKD HGB USE SMARTSET 30752 10/24/202510/24, 10/24/2024, 10/10/2024, Additional history exists DTap/Tdap [...] this encounter Medical Devices Implanted Type Area Ribbon Lapper Tender Device Identifier Shelf Expiration Date Model / Serial / Lot Lens Intraoc 22.5 - [id number] - [id number] Implanted:Qty: 1 on 05/22/2018 by Jasbir Maurer MD at OR [facility] Right: Eye [employer] 11/22/2022 [id number] / [id number] / [id number] Lens Intraoc 21.0 - [id number] - [id number] Implanted:Qty: 1 on 06/05/2018 by Jasbir Maurer MD at OR [facility] Left: Eye [employer]CH [employer] LOMB 12/20/2022 [id number] / [id number] / Duraclip 16mm Xlg Repostn - [id number] Implanted:Qty: 1 on 04/12/2024 by Edilberto Lujan MD at OR [facility] [employer] [id number] 12/08/2024 [id number] / / [id number] Duraclip 16mm Xlg Repostn - [id number] Implanted:Qty: 1 on 04/12/2024 by Edilberto Lujan MD at OR [facility] [employer] [id number] 12/08/2024 [id number] / / [id number] Duraclip 16mm Xlg Repostn - [id number] Implanted:Qty: 1 on 04/12/2024 by Edilberto Lujan MD at OR [facility] [employer] [id number] 12/08/2024 [id number] / / [id number] documented as of this encounter Advance Directives [...] Care Power of Attor mayela Care Teams Airframe And Power Plant Mechanic Relationship Specialty Start Date End Date Michael Hinton MD [address] [place] [address] PCP - General Family Medicine 08/07/17 documented as of this encounter
--- OUTSIDE RECORDS SUMMARY | 2025-03-05 02:21 | External Medical Summary | Summary of Care ---
Author Name Unknown Organization [facility] Address [address] [place] [address] Phone [phone] Care Team Providers Care Drilling Plant Operator Name Role Phone Michael Hinton MD Primary Care Provider [phone] [phone] Encounter Details Date Type Department Care Team (Late st Contact Info) Description 11/05/2024 Population Health External Data Unspecified Department Allergies Active Allergy Reactions Criticality Noted Date Comments Fabiano Inhibitors Cough 06/09/2017 Carbidopa High 08/30/2024 Other Reaction(s): constipation Carbidopa W-Levodopa 03/17/2021 Constipation Levodopa High 08/30/2024 Other Reaction(s): constipation Nsaids Rash 05/17/2018 Contraindicated per wheel of fortune dealer documented as of this encounter (statuses as [...] mitral valve regurgitation,Co ronary artery disease involving habematole[place] coronary artery of habematolel heart without angina pectoris,Stage 3b chronic kidney [...] have staff contact office to notify of [facility] recommendation, possibly consider d.c maxzide [...] anemia in Aug with drop to 4.3. [facility] now monitoring counts weekly. 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 on file Not on fi le Not on file Not on file Not on file Not on file documented as of this encounter Plan of Treatment Upcoming Encounters Date Type Department Care Team (Late st Contact Info) Description 11/07/2024 8:05 AM EST Laboratory Lab [facility] [address] [place] [address] Mvmg, [facility] Home Draw [address] [place] [address] 11/14/2024 2:30 PM EST [facility], [facility] [address] [facility] [place] [address] Peggy De RN 132 [facility] [place] [address] 11/21/2024 8:05 AM EST Laboratory Lab Mobile Phlebotomy [facility] [address] [facility] [place] [address] Mvmg, Gml Mobile Home Draw [address] [facility] [place] [address] 11/21/2024 12:00 PM EST Office Visit Gastroenterology, [facility] [address] [facility] [place] [address] Cisco Buitrago CRNP 132 [place] [address] 03/12/2025 3:30 PM EDT Home Visit Care at Home [address] [place] [address] Betina Jacob PA-C [address] [place] [address] 03/14/2025 4:00 PM EDT Office Visit Cardiology, [facility] 132 [facility] [place] [address] Dominick Benz DO 132 [facility] [place] [address] 03/18/2025 11:15 AM EDT Office Visit Urology, [facility] [address] [facility] [place] [address] Kalpesh Funes MD [address] [place] [address] Health Maintenance Due Date Last Done Comments Alpha-1 Antitrypsin 1963 Diabetic Foot Exam 03/27/2021 03/27/2020, 08/23/2018 Diabetic Eye Exam 11/01/2023 11/01/2022, , 11/01/2022, Additional history exists Albumin/Creatinine Ratio 12/27/2023 023, 03/08/2019, 04/09/2014 HbA1c 11/23/2024 05/23/2024, 03/24, 12/26/2022, Additional history exists CKD PHOS USE SMARTSET 49076 12/07/202411/23, 12/26/2022, 06/21/2021 Adult Wellness Visit 03/06/2025 03/06/2024, 11/02/19 23 O2 ASSESSMENT COMPLETED IN PAST YEAR FOR COPD 04/12/2025 04/12/2024 GFR 04/30/2025 10/31/2024, 11/2024, 10/10/2024, Additional history exists Depression Screening 08/06/2025 08/06/2024 CKD HGB USE SMARTSET 76371 10/24/202510/24, 10/24/2024, 10/10/2024, Additional history exists DTap/Tdap [...] this encounter Medical Devices Implanted Type Area Sleever Device Identifier Shelf Expiration Date Model / Serial / Lot Lens Intraoc 22.5 - [id number] - [id number] Implanted:Qty: 1 on 05/22/2018 by Jasbir Maurer MD at OR [facility] Right: Eye BAUSCH & LOMB 11/22/2022 [id number] / [id number] / [id number] Lens Intraoc 21.0 - [id number] - [id number] Implanted:Qty: 1 on 06/05/2018 by Jasbir Maurer MD at OR [facility] Left: Eye BAUSCH & LOMB 12/20/2022 [id number] / [id number] / Duraclip 16mm Xlg Repostn - [id number] Implanted:Qty: 1 on 04/12/2024 by Edilberto Lujan MD at OR [facility] [employer] [id number] 12/08/2024 [id number] / / [id number] Duraclip 16mm Xlg Repostn - [id number] Implanted:Qty: 1 on 04/12/2024 by Edilberto Lujan MD at OR [facility] [employer] [place] [id number] 12/08/2024 [id number] / / [id number] Duraclip 16mm Xlg Repostn - [id number] Implanted:Qty: 1 on 04/12/2024 by Edilberto Lujan MD at OR [facility] [employer] [id number] 12/08/2024 [id number] / / [id number] documented as of this encounter Advance Directives [...] Care Power of Attor mayela Care Teams Drilling Plant Operator Relationship Specialty Start Date End Date Michael Hinton MD [address] [place] [address] PCP - General Family Medicine 08/07/17 documented as of this encounter
--- OUTSIDE RECORDS SUMMARY | 2025-03-05 02:21 | External Medical Summary | Summary of Care ---
Author Name Unknown Organization [facility] Address [address] [place] [address] Phone [phone] Care Team Providers Care Disease And Insect Control Boss Name Role Phone Michael Hinton MD Primary Care Provider [phone] [phone] Reason for Visit * Reason Onset Date Comments Test Results 11/04/2024 Encounter Details Date Type Department Care Team (Late st Contact Info) Description 11/04/2024 Telephone Family Practice [facility] [address] [place] [address] Eduardo Groves MD [address] [place] [address] Test Results Allergies Active Allergy Reactions Criticality Noted Date Comments Fabiano Inhibitors Cough 06/09/2017 Carbidopa High 08/30/2024 Other Reaction(s): constipation Carbidopa W-Levodopa 03/17/2021 Constipation Levodopa High 08/30/2024 Other Reaction(s): constipation Nsaids Rash 05/17/2018 Contraindicated per custom framing specialist documented as of this encounter (statuses as of 11/06/2024) Medications Glucose Blood (ONETOUCH VERIO) STRPIndications: Type 2 diabetes mellitus with hemoglobin A1c goal of less than 8.0% ([facility]) Use up to 4 times a day E11.9 400 Strip 3 8 Active ONETOUCH DELICA LANCETS 33G MISCIndications: Type 2 diabetes mellitus with hemoglobin A1c goal of less than 8.0% ([facility]) Use up to 4 times [...] mitral valve regurgitation,Co ronary artery disease involving [place] coronary artery of [place] heart without angina pectoris,Stage 3b chronic kidney [...] Plan (08/08/2024 3:17 PM EDT): Follows with [facility] hematology Routine labs monitored by hem/onc Labs pending today Iron infusion 08/02 Blood transfusion 08/05 Assessment & Plan (07/15/2024 6:05 PM EDT): Follows with [facility] hematology Routine labs monitored by hem/onc Update CBC next week Assessment & Plan (03/13/2024 11:24 AM EDT): Follows with [facility] hematology Routine labs monitored by hem/onc Update CBC tomorrow PRBC transfusions 01/2024, 02/2024 Assessment & Plan (10/17/2023 9:43 AM EST): Followed closely by [facility] hematology. No identified cause of HUNTER. Weekly labs monitored by hem/onc. Most recent hgb 8.7 Assessment & Plan (05/02/2023 1:04 PM EDT): Followed closely by [facility] hematology. 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 Sent patient a [facility] message: Yes real estate rental agent may give this message: No * [...] AM EST Laboratory Lab [facility]lebotomy [facility] [address] [place] [address] Mvmg, Gml Mobile Home Draw [address] [place] [address] 11/14/2024 2:30 PM EST [facility], [facility] 132 [facility] [place] [address] Peggy De, RN [address] [place] [address] 11/21/2024 8:05 AM EST Laboratory Lab Mobile Phlebotomy [facility] [address] [facility] [place] [address] Mvmg, Gml Mobile Home Draw [address] [facility] [place] [address] 11/21/2024 12:00 PM EST Office Visit Gastroenterology, [facility] [place] [address] Cisco Buitrago CRNP 132 [facility] [place] [address] 03/12/2025 3:30 PM EDT Home Visit Care at Home [address] [place] [address] Betina Jacob PA-C [address] [place], [place] [address] 03/14/2025 4:00 PM EDT Office Visit Cardiology, [facility] 132 [facility] [place] [address] Dominick Benz, [address] [place] [address] 03/18/2025 11:15 AM EDT Office Visit Urology, [facility] [address] [place] [address] Kalpesh Funes MD [address] [place] [address] Health Maintenance Due Date Last Done Comments Alpha-1 Antitrypsin 1963 Diabetic Foot Exam 03/27/2021 03/27/2020, 08/23/2018 Diabetic Eye Exam 11/01/2023 11/01/2022, , 11/01/2022, Additional history exists Albumin/Creatinine Ratio 12/27/2023 023, 03/08/2019, 04/09/2014 HbA1c 11/23/2024 05/23/2024, 03/24, 12/26/2022, Additional history exists CKD PHOS USE SMARTSET 47318 12/07/202411/23, 12/26/2022, 06/21/2021 Adult Wellness Visit 03/06/2025 03/06/2024, 11/02/19 23 O2 ASSESSMENT COMPLETED IN PAST YEAR FOR COPD 04/12/2025 04/12/2024 GFR 04/30/2025 10/31/2024, 11/2024, 10/10/2024, Additional history exists Depression Screening 08/06/2025 08/06/2024 CKD HGB USE SMARTSET 17212 10/24/202510/24, 10/24/2024, 10/10/2024, Additional history exists DTap/Tdap [...] this encounter Medical Devices Implanted Type Area Profiling Machine Set Up Operator Device Identifier Shelf Expiration Date Model / Serial / Lot Lens Intraoc 22.5 - [id number] - [id number] Implanted:Qty: 1 on 05/22/2018 by Jasbir Maurer MD at OR [facility] Right: Eye BAUSCH & LOMB 11/22/2022 [id number] / [id number] / [id number] Lens Intraoc 21.0 - [id number] - [id number] Implanted:Qty: 1 on 06/05/2018 by Jasbir Maurer MD at OR [facility] Left: Eye BAUSCH & LOMB 12/20/2022 [id number] / [id number] / Duraclip 16mm Xlg Repostn - [id number] Implanted:Qty: 1 on 04/12/2024 by Edilberto Lujan MD at OR [facility] [employer] [id number] 12/08/2024 [id number] / / [id number] Duraclip 16mm Xlg Repostn - [id number] Implanted:Qty: 1 on 04/12/2024 by Edilberto Lujan MD at OR [facility] [employer] [id number] 12/08/2024 [id number] / / [id number] Duraclip 16mm Xlg Repostn - [id number] Implanted:Qty: 1 on 04/12/2024 by Edilberto Lujan MD at OR [facility] [employer] [id number] 12/08/2024 [id number] / / [id number] documented as of this encounter Advance Directives [...] Care Power of Attor mayela Care Teams Disease And Insect Control Boss Relationship Specialty Start Date End Date Michael Hinton MD [address] [place] [address] PCP - General Family Medicine 08/07/17 documented as of this encounter
--- OUTSIDE RECORDS SUMMARY | 2025-03-05 02:22 | External Medical Summary | Summary of Care ---
Author Name Unknown Organization [facility] Address [address] [place] [address] Phone [phone] Care Team Providers Care Purchasing Engineer Name Role Phone Michael Hinton MD Primary Care Provider [phone] Reason for Visit * Reason Onset Date Comments Test Results 11/05/2024 Encounter Details Date Type Department Care Team (Late st Contact Info) Description 11/05/2024 Telephone Cardiology, [facility] [address] [place] [address] Dominick Benz, [address] [place] [address] Test Results Allergies Active Allergy Reactions Criticality Noted Date Comments Fabiano Inhibitors Cough 06/09/2017 Carbidopa High 08/30/2024 Other Reaction(s): constipation Carbidopa W-Levodopa 03/17/2021 Constipation Levodopa High 08/30/2024 Other Reaction(s): constipation Nsaids Rash 05/17/2018 Contraindicated per supervisor of guidance and testing documented as of this encounter (statuses as of 11/05/2024) Medications Glucose Blood (ONETOUCH VERIO) STRPIndications: Type [...] regurgitation,Co ronary artery disease involving [place] coronary artery of [place] heart without angina pectoris,Stage 3b chronic kidney [...] as of this encounter (statuses as of 11/05/2024) Active Problems Problem Noted Date Diagnosed Date [...] have staff contact office to notify of [facility] recommendation, possibly consider d.c maxzide [...] Plan (08/08/2024 3:17 PM EDT): Follows with [facility] hematology Routine labs monitored by hem/onc Labs pending today Iron infusion 08/02 Blood transfusion 08/05 Assessment & Plan (07/15/2024 6:05 PM EDT): Follows with [facility] hematology Routine labs monitored by hem/onc Update CBC next week Assessment & Plan (03/13/2024 11:24 AM EDT): Follows with [facility] hematology Routine labs monitored by hem/onc Update CBC tomorrow PRBC transfusions 01/2024, 02/2024 Assessment & Plan (10/17/2023 9:43 AM EST): Followed closely by [facility] hematology. No identified cause of HUNTER. Weekly labs monitored by hem/onc. Most recent hgb 8.7 Assessment & Plan (05/02/2023 1:04 PM EDT): Followed closely by [facility] hematology. [...] anemia in Aug with drop to 4.3. [facility] now monitoring counts weekly. Pt [...] (09/01/2024): Follows with Dr Shannon Zhang in [place] via telemed for PD Assessment & Plan [...] Coronary artery disease invo lving [place] coronary artery of [place] heart without angina pectoris 03/21/2018 Assessment & [...] as of this encounter (statuses as of 11/05/2024) Resolved Problems Problem Noted Date Diagnosed Date [...] scanned document from 11/13/[address] [facility]. 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 Not on file [...] Mobile Phlebotomy [facility] [address] [place] [address] Mvmg, Gml Mobile Home Draw [address] [place] [address] 11/14/2024 2:30 PM EST Home Visit [facility] 132 [facility] [place] [address] Peggy De RN 132 [facility] [place] [address] 11/21/2024 8:05 AM EST Laboratory Lab Mobile Phlebotomy [facility] [address] [place] [address] Mvmg, Gml Mobile Home Draw [address] [place] [address] 11/21/2024 12:00 PM EST Office Visit Gastroenterology, [facility] 132 [facility] [place] [address] Cisco Buitrago CRNP [address] [place] [address] 03/12/2025 3:30 PM EDT Home Visit Care at Home [address] [place] [address] Betina Jacob PA-C [address] [place] [address] 03/14/2025 4:00 PM EDT Office Visit Cardiology, [facility] [address] [place] [address] Dominick Benz DO [address] [place] [address] 03/18/2025 11:15 AM EDT Office Visit Urology, [facility] [address] [place] [address] Kalpesh Funes MD [address] [place] [address] Health Maintenance Due Date Last Done Comments Alpha-1 Antitrypsin 1963 Diabetic Foot Exam 03/27/2021 03/27/2020, 08/23/2018 Diabetic Eye Exam 11/01/2023 11/01/2022, , 11/01/2022, Additional history exists Albumin/Creatinine Ratio 12/27/2023 023, 03/08/2019, 04/09/2014 HbA1c 11/23/2024 05/23/2024, 03/24, 12/26/2022, Additional history exists CKD PHOS USE SMARTSET 90336 12/07/202411/23, 12/26/2022, 06/21/2021 Adult Wellness Visit 03/06/2025 03/06/2024, 11/02/19 23 O2 ASSESSMENT COMPLETED IN PAST YEAR FOR COPD 04/12/2025 04/12/2024 GFR 04/30/2025 10/31/2024, 11/2024, 10/10/2024, Additional history exists Depression Screening 08/06/2025 08/06/2024 CKD HGB USE SMARTSET 18207 10/24/202510/24, 10/24/2024, 10/10/2024, Additional history exists DTap/Tdap [...] this encounter Medical Devices Implanted Type Area Foundry Metallurgist Device Identifier Shelf Expiration Date Model / Serial / Lot Lens Intraoc 22.5 - [id number] - [id number] Implanted:Qty: 1 on 05/22/2018 by Jasbir Maurer MD at OR [facility] Right: Eye [employer]OM[employer] 11/22/2022 [id number] / [id number] / [id number] Lens Intraoc 21.0 - [id number] - [id number] Implanted:Qty: 1 on 06/05/2018 by Jasbir Maurer MD at OR [facility] Left: Eye BAUSCH & LOMB 12/20/2022 [id number] / [id number] / Duraclip 16mm Xlg Repostn - [id number] Implanted:Qty: 1 on 04/12/2024 by Edilberto Lujan MD at OR [facility] [employer] [id number] 12/08/2024 [id number] / / [id number] Duraclip 16mm Xlg Repostn - [id number] Implanted:Qty: 1 on 04/12/2024 by Edilberto Lujan MD at OR [facility] [employer] [id number] 12/08/2024 [id number] / / [id number] Duraclip 16mm Xlg Repostn - [id number] Implanted:Qty: 1 on 04/12/2024 by Edilberto Lujan MD at OR [facility] [employer] [id number] 12/08/2024 [id number] / / [id number] documented as of this encounter Advance Directives [...] Care Power of Attor mayela Care Teams Purchasing Engineer Relationship Specialty Start Date End Date Michael Hinton MD [address] [place] [address] PCP - General Family Medicine 08/07/17 documented as of this encounter
--- OUTSIDE RECORDS SUMMARY | 2025-03-05 02:22 | External Medical Summary | Summary of Care ---
Author Name Unknown Organization [facility] Address [address] [place] [address] Phone [phone] Care Team Providers Care Pattern Mechanic Name Role Phone Michael Hinton MD Primary Care Provider [phone] Reason for Visit * Reason Onset Date Comments Test Results 11/04/2024 Encounter Details Date Type Department Care Team (Late st Contact Info) Description 11/04/2024 Telephone Family Practice [facility] [address] [place] [address] Eduardo Groves MD [address] [place] [address] Test Results Allergies Active Allergy Reactions Criticality Noted Date Comments Fabiano Inhibitors Cough 06/09/2017 Carbidopa High 08/30/2024 Other Reaction(s): constipation Carbidopa W-Levodopa 03/17/2021 Constipation Levodopa High 08/30/2024 Other Reaction(s): constipation Nsaids Rash 05/17/2018 Contraindicated per byproducts pump operator documented as of this encounter (statuses as of 11/04/2024) Medications Glucose Blood (ONETOUCH VERIO) STRPIndications: Type [...] g 2 11/07/2023 10:13 AM EST 4 11/05/19 25 Active Escitalopram Oxalate 20 MG Oral [...] mitral valve regurgitation,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 [facility] now monitoring counts weekly. 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 03/21/2018 Assessment & [...] as of this encounter (statuses as of 11/04/2024) Resolved Problems Problem Noted Date Diagnosed Date [...] as of this encounter (statuses as of 11/04/2024) Immunizations Name Administration Dates Next Due COVID-19 mRNA, LNP-s, No Pre serve, 2-Dose Series ([employer]) 11/03/2021,12/19/2020,11/28/2020 Covid-19 Ad26, Single Dose (Soy/J&J) 12/19/2020,11/28/2020 [...] 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 on file [...] Phlebotomy [facility] [address] [facility] [place] [address] Mvmg, Gml Mobile Home Draw [address] [facility] [place] [address] 11/14/2024 2:30 PM EST Home Visit [facility] [address] [place] [address] Peggy De, RN [address] [place] [address] 11/21/2024 8:05 AM EST Laboratory Lab Mobile Phlebotomy [facility] [address] [place] [address] Mvmg, Gml Mobile Home Draw [address] [facility] [place] [address] 11/21/2024 12:00 PM EST Office Visit Gastroenterology, [facility] [address] [place] [address] Cisco Buitrago CRNP [address] [place] [address] 03/12/2025 3:30 PM EDT Home Visit Care at Home [address] [place] [facility] [place] [address] Betina Jacob PA-C [address] [facility] [place] [address] 03/14/2025 4:00 PM EDT Office Visit Cardiology, [facility] [address] [place] [address] Dominick Benz DO [address] [place] [address] 03/18/2025 11:15 AM EDT Office Visit Urology, [facility] [address] [place] [address] Kalpesh Funes MD [address] [place] [address] Health Maintenance Due Date Last Done Comments Alpha-1 Antitrypsin 1963 Diabetic Foot Exam 03/27/2021 03/27/2020, 08/23/2018 Diabetic Eye Exam 11/01/2023 11/01/2022, , 11/01/2022, Additional history exists Albumin/Creatinine Ratio 12/27/2023 023, 03/08/2019, 04/09/2014 HbA1c 11/23/2024 05/23/2024, 03/24, 12/26/2022, Additional history exists CKD PHOS USE SMARTSET 20778 12/07/202411/23, 12/26/2022, 06/21/2021 Adult Wellness Visit 03/06/2025 03/06/2024, 11/02/19 23 O2 ASSESSMENT COMPLETED IN PAST YEAR FOR COPD 04/12/2025 04/12/2024 GFR 04/30/2025 10/31/2024, 01/0 11/2024, 10/10/2024, Additional history exists Depression Screening 08/06/2025 08/06/2024 CKD HGB USE SMARTSET 24713 10/24/202510/24, 10/24/2024, 10/10/2024, Additional history exists DTap/Tdap [...] this encounter Medical Devices Implanted Type Area Photographic Equipment Technician Device Identifier Shelf Expiration Date Model / Serial / Lot Lens Intraoc 22.5 - [id number] - [id number] Implanted:Qty: 1 on 05/22/2018 by Jasbir Maurer MD at OR [facility] Right: Eye [employer]OM[employer] 11/22/2022 [id number] / [id number] / [id number] Lens Intraoc 21.0 - [id number] - [id number] Implanted:Qty: 1 on 06/05/2018 by Jasbir Maurer MD at OR [facility] Left: Eye BAUSCH & LOMB 12/20/2022 [id number] / [id number] / Duraclip 16mm Xlg Repostn - [id number] Implanted:Qty: 1 on 04/12/2024 by Edilberto Lujan MD at OR [facility] [employer] [id number] 12/08/2024 [id number] / / [id number] Duraclip 16mm Xlg Repostn - [id number] Implanted:Qty: 1 on 04/12/2024 by Edilberto Lujan MD at OR [facility] [employer] [id number] 12/08/2024 [id number] / / [id number] Duraclip 16mm Xlg Repostn - [id number] Implanted:Qty: 1 on 04/12/2024 by Edilberto Lujan MD at OR [facility] [employer] [id number] 12/08/2024 [id number] / / [id number] documented as of this encounter Advance Directives [...] Care Power of Attor mayela Care Teams Pattern Mechanic Relationship Specialty Start Date End Date Michael Hinton MD [address] [place] [address] PCP - General Family Medicine 08/07/17 documented as of this encounter
--- OUTSIDE RECORDS SUMMARY | 2025-03-05 02:22 | External Medical Summary | Summary of Care ---
Author Name Unknown Organization [facility] Address [address] [place] [address] Phone [phone] Care Team Providers Care Dye Reel Operator Helper Name Role Phone Michael Hinton MD Primary Care Provider [phone] [phone] Reason for Visit * Reason Onset Date Comments Pre Cert/Prior Auth 11/04/2024 Encounter Details Date Type Department Care Team (Late st Contact Info) Description 11/04/2024 Telephone Family Practice [facility] [address] [place] [address] Eduardo Groves MD [address] [place] [address] Pre Cert/Prior Auth Allergies Active Allergy Reactions Criticality Noted Date Comments Fabiano Inhibitors Cough 06/09/2017 Carbidopa High 08/30/2024 Other Reaction(s): constipation Carbidopa W-Levodopa 03/17/2021 Constipation Levodopa High 08/30/2024 Other Reaction(s): constipation Nsaids Rash 05/17/2018 Contraindicated per junior media buyer documented as of this encounter (statuses as [...] mitral valve regurgitation,Co ronary artery disease involving cowlitz coronary artery of cowlitz heart without angina pectoris,Stage 3b chronic kidney [...] have staff contact office to notify of [facility] recommendation, possibly consider d.c maxzide [...] Plan (08/08/2024 3:17 PM EDT): Follows with [facility] hematology Routine labs monitored by hem/onc Labs pending today Iron infusion 08/02 Blood transfusion 08/05 Assessment & Plan (07/15/2024 6:05 PM EDT): Follows with [facility] hematology Routine labs monitored by hem/onc Update CBC next week Assessment & Plan (03/13/2024 11:24 AM EDT): Follows with [facility] hematology Routine labs monitored by hem/onc Update CBC tomorrow PRBC transfusions 01/2024, 02/2024 Assessment & Plan (10/17/2023 9:43 AM EST): Followed closely by [facility] hematology. No identified cause of HUNTER. Weekly labs monitored by hem/onc. Most recent hgb 8.7 Assessment & Plan (05/02/2023 1:04 PM EDT): Followed closely by [facility] [...] anemia in Aug with drop to 4.3. [facility] now monitoring counts weekly. 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 Unable to reach patient at this time. Advised patient to please call [phone]. Please transfer him back to myself. If I'm not available, transfer to next available [facility]. Advise patient he can obtain OTC or if provider agreeable he can trial lidocaine 5% ointment. Thank you, Stephanie Elder PharmD Clinical Pharmacist [facility]) 11/05/24 4:38 PM [phone] * Telephone Encounter - Lata Wright PHARM Tech - 11/05/2024 3:42 PM EST Patients insurance would like to inform the office that Lidocaine patches is requiring additional information: needs the diagnosis code . Prior authorization entered in [facility] at [facility]. EOC# [id number] Please send to [facility] before tomorrow 11/06 by 3 pm. Thank You, Lata Wright, [facility] Well Testing Operator II [facility] ([facility]) 11/05/2024, 3:42 PM * Telephone Encounter - Mago Loyd LPN - 11/04/2024 4:00 PM EST Prior auth started on cover mymeds for lido patch [id number] documented in this encounter Plan of Treatment Upcoming Encounters Date Type Department Care Team (Late st Contact Info) Description 11/07/2024 8:05 AM EST Laboratory Lab Mobile Phlebotomy [facility] [address] [place] [address] Mvmg, Gml Mobile Home Draw [address] [facility] [place] [address] 11/14/2024 2:30 PM EST [facility] Visit [facility], [facility] [place] [address] Peggy De RN 132 [place] [address] 11/21/2024 8:05 AM EST Laboratory Lab Mobile Phlebotomy [facility] [address] [facility] [place] [address] Mvmg, Gml Mobile Home Draw [address] [facility] [place] [address] 11/21/2024 12:00 PM EST Office Visit Gastroenterology, [facility] [address] [facility] [place] [address] Cisco Buitrago CRNP [address] [place] [address] 03/12/2025 3:30 PM EDT Home Visit Care at Home [address] [place] [address] Betina Jacob PA-C [address] [place] [address] 03/14/2025 4:00 PM EDT Office Visit Cardiology, [facility] 132 [facility] [place] [address] Dominick Benz DO 132 [place] [address] 03/18/2025 11:15 AM EDT Office Visit Urology, [facility] [address] [facility] [place] [address] Kalpesh Funes MD [address] [place] [address] Health Maintenance Due Date Last Done Comments Alpha-1 Antitrypsin 1962 Diabetic Foot Exam 03/27/2021 03/27/2020, 08/23/2018 Diabetic Eye Exam 11/01/2023 11/01/2022, , 11/01/2022, Additional history exists Albumin/Creatinine Ratio 12/27/2023 023, 03/08/2019, 04/09/2014 HbA1c 11/23/2024 05/23/2024, 03/24, 12/26/2022, Additional history exists CKD PHOS USE SMARTSET 80726 12/07/202411/23, 12/26/2022, 06/21/2021 Adult Wellness Visit 03/06/2025 03/06/2024, 11/02/19 23 O2 ASSESSMENT COMPLETED IN PAST YEAR FOR COPD 04/12/2025 04/12/2024 GFR 04/30/2025 10/31/2024, 11/2024, 10/10/2024, Additional history exists Depression Screening 08/06/2025 08/06/2024 CKD HGB USE SMARTSET 45700 10/24/202510/24, 10/24/2024, 10/10/2024, Additional history exists DTap/Tdap [...] this encounter Medical Devices Implanted Type Area Truck Loader Overhead Crane Device Identifier Shelf Expiration Date Model / Serial / Lot Lens Intraoc 22.5 - [id number] - [id number] Implanted:Qty: 1 on 05/22/2018 by Jasbir Maurer MD at OR [facility] Right: Eye BAUSCH & LOMB 11/22/2022 [id number] / [id number] / [id number] Lens Intraoc 21.0 - [id number] - [id number] Implanted:Qty: 1 on 06/05/2018 by Jasbir Maurer MD at OR [facility] Left: Eye BAUSCH & LOMB 12/20/2022 [id number] / [id number] / Duraclip 16mm Xlg Repostn - [id number] Implanted:Qty: 1 on 04/12/2024 by Edilberto Lujan MD at OR [facility] CONMED NACHO [id number] 12/08/2024 [id number] / / [id number] Duraclip 16mm Xlg Repostn - [id number] Implanted:Qty: 1 on 04/12/2024 by Edilberto Lujan MD at OR [facility] CONMED NACHO [id number] 12/08/2024 [id number] / / [id number] Duraclip 16mm Xlg Repostn - [id number] Implanted:Qty: 1 on 04/12/2024 by Edilberto Lujan MD at OR [facility] CONMED NACHO [id number] 12/08/2024 [id number] / / [id number] documented as of this encounter Advance Directives [...] Care Power of Attor mayela Care Teams Dye Reel Operator Helper Relationship Specialty Start Date End Date Michael Hinton MD [address] [place] [address] PCP - General Family Medicine 08/07/17 documented as of this encounter
--- OUTSIDE RECORDS SUMMARY | 2025-03-05 02:22 | External Medical Summary | Summary of Care ---
Author Name Unknown Organization [facility] Address [address] [place] [address] Phone [phone] Care Team Providers Care Ice Cream Mixer Name Role Phone Michael Hinton MD Primary Care Provider [phone] [phone] Reason for Visit * Reason Onset Date Comments Test Results 11/04/2024 Encounter Details Date Type Department Care Team (Late st Contact Info) Description 11/04/2024 Telephone Family Practice [facility] [address] [place] [address] Eduardo Groves MD [address] [place] [address] Test Results Allergies Active Allergy Reactions Criticality Noted Date Comments Fabiano Inhibitors Cough 06/09/2017 Carbidopa High 08/30/2024 Other Reaction(s): constipation Carbidopa W-Levodopa 03/17/2021 Constipation Levodopa High 08/30/2024 Other Reaction(s): constipation Nsaids Rash 05/17/2018 Contraindicated per mgmt specialist documented as of this encounter (statuses as of 11/05/2024) Medications Glucose Blood (ONETOUCH VERIO) STRPIndications: Type 2 diabetes mellitus with hemoglobin A1c goal of less than 8.0% ([facility]) Use up to 4 times a day E11.9 400 Strip 3 8 Active ONETOUCH DELICA LANCETS 33G MISCIndications: Type 2 diabetes mellitus with hemoglobin A1c goal of less than 8.0% ([facility]) Use up to 4 times a day [...] mitral valve regurgitation,Co ronary artery disease involving ely shoshone coronary artery of ely 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 angina pectoris,Stage 3b chronic kidney [...] have staff contact office to notify of [facility] recommendation, possibly consider d.c maxzide [...] anemia in Aug with drop to 4.3. [facility] now monitoring counts weekly. 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 [place] [address] 11/21/2024 12:00 PM EST Office Visit Gastroenterology, [facility] [address] [place] [address] Cisco Buitrago CRNP 132 [facility] [place] [address] 03/12/2025 3:30 PM EDT Home Visit Care at Home [address] [place], [place] [id number] Betina Jacob PA-C [address] [place] [address] 03/14/2025 4:00 PM EDT Office Visit Cardiology, [facility] 132 [facility] [place] [address] Dominick Benz DO [address] [place] [address] 03/18/2025 11:15 AM EDT Office Visit Urology, [facility] [place] [address] Kalpesh Funes MD [address] [place] [address] Health Maintenance Due Date Last Done Comments Alpha-1 Antitrypsin 1962 Diabetic Foot Exam 03/27/2021 03/27/2020, 08/23/2018 Diabetic Eye Exam 11/01/2023 11/01/2022, , 11/01/2022, Additional history exists Albumin/Creatinine Ratio 12/27/2023 023, 03/08/2019, 04/09/2014 HbA1c 11/23/2024 05/23/2024, 03/24, 12/26/2022, Additional history exists CKD PHOS USE SMARTSET 19529 12/07/202411/23, 12/26/2022, 06/21/2021 Adult Wellness Visit 03/06/2025 03/06/2024, 11/02/19 23 O2 ASSESSMENT COMPLETED IN PAST YEAR FOR COPD 04/12/2025 04/12/2024 GFR 04/30/2025 10/31/2024, 11/2024, 10/10/2024, Additional history exists Depression Screening 08/06/2025 08/06/2024 CKD HGB USE SMARTSET 72345 10/24/202510/24, 10/24/2024, 10/10/2024, Additional history exists DTap/Tdap [...] this encounter Medical Devices Implanted Type Area Powdered Sugar Supervisor Device Identifier Shelf Expiration Date Model / Serial / Lot Lens Intraoc 22.5 - [id number] - [id number] Implanted:Qty: 1 on 05/22/2018 by Jasbir Maurer MD at OR [facility] Right: Eye BAUSCH & LOMB 11/22/2022 [id number] / [id number] / [id number] Lens Intraoc 21.0 - [id number] - [id number] Implanted:Qty: 1 on 06/05/2018 by Jasbir Maurer MD at OR [facility] Left: Eye BAUSCH & LOMB 12/20/2022 [id number] / [id number] / Duraclip 16mm Xlg Repostn - [id number] Implanted:Qty: 1 on 04/12/2024 by Edilberto Lujan MD at OR [facility] Rezee NACHO [id number] 12/08/2024 [id number] / / [id number] Duraclip 16mm Xlg Repostn - [id number] Implanted:Qty: 1 on 04/12/2024 by Edilberto Lujan MD at OR [facility] CONMED NACHO [id number] 12/08/2024 [id number] / / [id number] Duraclip 16mm Xlg Repostn - [id number] Implanted:Qty: 1 on 04/12/2024 by Edilberto Lujan MD at OR [facility] [employer] Health Solutions[employer] NACHO [id number] 12/08/2024 [id number] / / [id number] documented as of this encounter Advance Directives [...] Care Power of Attor mayela Care Teams Ice Cream Mixer Relationship Specialty Start Date End Date Michael Hinton MD [address] [place] [address] PCP - General Family Medicine 08/07/17 documented as of this encounter
--- OUTSIDE RECORDS SUMMARY | 2025-03-05 02:23 | External Medical Summary | Summary of Care ---
Author Name Unknown Organization [facility] Address [address] [place] [address] Phone [phone] Care Team Providers Care Computator Name Role Phone Michael Hinton MD Primary Care Provider +1 [phone] Encounter Details Date Type Department Care Team (Late st Contact Info) Description 11/02/2024 9:00 AM EST Home Visit [facility] [address] [place] [address] [facility], Nurse [facility] [address] [place] [address] Allergies Active Allergy Reactions Criticality Noted Date Comments Fabiano Inhibitors Cough 06/09/2017 Carbidopa W-Levodopa 03/17/2021 Constipation Nsaids Rash 05/17/2018 Contraindicated per timber hewer documented as of this encounter (statuses as of 11/02/2024) Medications Glucose Blood (ONETOUCH VERIO) STRPIndications: Type [...] mouth in the morning. 90 Tablet 3 08/06/2024 4:32 PM EDT 4 Active Amantadine HCl 100 MG Oral [...] mitral valve regurgitation,Co ronary artery disease involving [place] coronary artery of [place] heart without angina pectoris,Stage 3b chronic kidney disease (HCC) Take 3 Tablets by mouth once a day on Monday, Monday, and Monday only AND 2 Tablets once a day on Monday, , Monday, and Monday only. 5 Active documented as of this encounter (statuses as of 11/02/2024) Active Problems Problem Noted Date Diagnosed Date Recurrent Clostridium difficile diarrhea 024 Assessment & [...] have staff contact office to notify of [facility] recommendation, possibly consider d.c maxzide and maximize [...] (09/01/2024): Follows with Dr Shannon Zhang in [place] via telemed for PD Assessment & Plan [...] northern cheyenne heart without angina pectoris 03/21/2018 Assessment & Plan (05/02/2023 1:16 PM EDT): Stable, Continue metoprolo, atorvastatin No ASA d/t history severe anemia--GI bleeding? Assessment & Plan (03/28/2023 1:20 PM EDT): Stable. No angina. - continue metoprolol, atorvastatin. Not on aspirin due to GI bleeding and anemia. Fabiano intolerance. Cervical spinal stenosis 08/18/2017 FABIANO (generalized anxiety disorder) 08/18/2017 Assessment & Plan (03/28/2023 1:29 PM EDT): Symptoms stable -continue Lexapro Primary parkinsonism 08/18/2017 Assessment & Plan (07/15/2024 [...] as of this encounter (statuses as of 11/02/2024) Resolved Problems Problem Noted Date Diagnosed Date [...] as of this encounter (statuses as of 11/02/2024) Immunizations Name Administration Dates Next Due COVID-19 mRNA, LNP-s, No Pre serve, 2-Dose Series (Qual[employer]o) 11/03/2021,12/19/2020,11/28/2020 Covid-19 Ad26, Single Dose (Ascade/J&J) 12/19/2020,11/28/2020 DTaP Dipth/Tet/Acell Pertussis (Infanrix), Peds 10/24/2019 [...] 03/07/2024 Does the household have a [facility] [place] source of income? 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 on file Not on file Not on fi le Not on file Not on file Not on file Not on file documented as of this encounter Last Filed Vital Signs Vital Sign Reading Time Taken Comments Blood Pressure 156/82 11/02/2024 10:05 AM EST Pulse 86 11/02/2024 10:05 AM EST Temperature 36.1 °C (97 °F) 11/02/2024 10:05 AM EST Respiratory Rate 18 11/02/2024 10:05 AM EST Oxygen Saturation 96% 11/02/2024 10:05 AM EST Inhaled Oxygen Concentration - - Weight - - Height - - Body Mass Index - - documented in this encounter Progress Notes * Peggy De RN - 11/02/2024 9:00 AM EST Current Concerns: Communication Note Name: Jesus Jose Situation: Called to pt's home for acute visit Has been dealing with increased right low back pain for past week Did go to chiropractor last Monday and had some light massage done Chiropractor suggested pt f/u with pcp about this concerned with kidneys Has tried ice and lidocaine patches with little to no relief Background: 79 y/o male with parkinson's with dementia, CHF, stage 3b CKD, HTN, Afib, Iron deficiency anemia, BPH, urge incontinence Assessment: Pt alert with usual forgetfulness/mild confusion at times He is able to voice his needs and reports pain is 9/10 of right low back Pain is constant and pt reports it doesn't seem to change with movement, sitting, etc reports he seems to be fine with sitting and then he moans in pain when goes to stand up - walks with walker VS - 97- 86 - 18 - 156/82 - 96% Pain noted with palpation of right low back No bruising, redness, edema, warmth noted Urine output seems about the same - urinates frequently with diuretic use Denies dysuria, urgency Reports pain has not increased or decreased much since started last week Denies falls or injury He has been out to appts, getting in and out of vehicle Recommendation: TE sent to pediatric nurse practitioner provider Dr. Pisano for further recommendations Per Dr. Pisano - have pt see primary care for further examination and possible imaging Able to get appt at [facility] on Monday at 11am for further eval Physical Exam: Physical Exam Cardiovascular: Rate and Rhythm: Normal rate. Rhythm irregular. Pulses: Normal pulses. Heart sounds: Normal heart sounds. Pulmonary: Effort: Pulmonary effort is normal. Breath sounds: Normal breath sounds. Abdominal: Palpations: Abdomen is soft. Skin: General: Skin is warm and dry. Neurological: Mental Status: He is alert. Mental status is at baseline. Review of Systems: Review of Systems Respiratory: Positive for shortness of breath (MUSTAFA - at baseline). Musculoskeletal: Positive for arthralgias and back pain. Psychiatric/Behavioral: Positive for confusion (at baseline). Care Plan Goal Progress: Orders Placed: No orders of the defined types were placed in this encounter. Medications Given: Care Gaps: Care Gaps Care gaps closed this contact: Education;Medications;Plan of Care (POC) (11/02/241026) Type of education: Clinical/disease;Educated on the benefits of connecting with their PCP () Type of medication care gap: Medication optimization;Medication adherence (11/02/241026) Type of plan of care (POC) care gap: Education and review of exacerbation plan (11/02/241026) documented in this encounter Plan of Treatment Upcoming Encounters Date Type Department Care Team (Late st Contact Info) Description 11/04/2024 11:00 AM EST Office Visit Family Practice [facility] [address] [place] [address] Eduardo Groves MD [address] [place] [address] 11/07/2024 8:05 AM EST Laboratory Lab Mobile Phlebotomy [facility] [address] [place] [address] Mvmg, Gml Mobile Home Draw [address] [place] [address] 11/14/2024 2:30 PM EST Home Visit [facility] [address] [place] [address] [place] [address] Peggy De RN [address] [place] [address] 11/21/2024 8:05 AM EST Laboratory Lab Mobile Phlebotomy [facility] [address] [place] [address] Mvmg, Gml Mobile Home Draw [address] [place] [address] 11/21/2024 12:00 PM EST Office Visit Gastroenterology, [facility] [address] [place] [address] Cisco Buitrago CRNP [address] [place] [address] 03/12/2025 3:30 PM EDT Home Visit Care at Home [address] [place] [address] Betina Jacob PA-C [address] [place], [place] [address] 03/14/2025 4:00 PM EDT Office Visit Cardiology, [facility] [place] [address] Dominick Benz DO [address] [place] [address] 03/18/2025 11:15 AM EDT Office Visit Urology, [facility] 132 [facility] [place] [address] Kalpesh Funes MD [address] [place] [address] Health Maintenance Due Date Last Done Comments Diabetic Foot Exam 03/27/2021 03/27/2020, 08/23/2018 Diabetic Eye Exam 11/01/2023 11/01/2022, , 11/01/2022, Additional history exists Albumin/Creatinine Ratio 12/27/2023 023, 03/08/2019, 04/09/2014 HbA1c 11/23/2024 05/23/2024, 03/24, 12/26/2022, Additional history exists CKD PHOS USE SMARTSET 64364 12/07/202411/23, 12/26/2022, 06/21/2021 Adult Wellness Visit 03/06/2025 03/06/2024, 11/02/19 23 GFR 04/30/2025 10/31/2024, 11/2024, 10/10/2024, Additional history exists Depression Screening 08/06/2025 08/06/2024 CKD HGB USE SMARTSET 63732 10/24/202510/24, 10/24/2024, 10/10/2024, Additional history exists DTap/Tdap [...] this encounter Medical Devices Implanted Type Area Retail Representative Device Identifier Shelf Expiration Date Model / Serial / Lot Lens Intraoc 22.5 - [id number] - [id number] Implanted:Qty: 1 on 05/22/2018 by Jasbir Maurer MD at OR [facility] Right: Eye BAUSCH & LOMB 11/22/2022 [id number] / [id number] Lens Intraoc 21.0 - [id number] - [id number] Implanted:Qty: 1 on 06/05/2018 by Jasbir Maurer MD at OR [facility] Left: Eye BAUSCH & LOMB 12/20/2022 [id number] / [id number] / Duraclip 16mm Xlg Repostn - [id number] Implanted:Qty: 1 on 04/12/2024 by Edilberto Lujan MD at OR [facility] CONMED NACHO [id number] 12/08/2024 [id number] / / [id number] Duraclip 16mm Xlg Repostn - [id number] Implanted:Qty: 1 on 04/12/2024 by Edilberto Lujan MD at OR [facility] CONMED NACHO [id number] 12/08/2024 [id number] / / [id number] Duraclip 16mm Xlg Repostn - [id number] Implanted:Qty: 1 on 04/12/2024 by Edilberto Lujan MD at OR [facility] CONMED NACHO [id number] 12/08/2024 [id number] / / [id number] documented as of this encounter Advance Directives [...] File Name Relationship Healthcare Agent [facility] Ashley Jose Spouse Health Care Power of Attor mayela Care Teams Computator Relationship Specialty Start Date End Date Michael Hinton MD [address] [place] [place] [address] PCP - General Family Medicine 08/07/17 documented as of this encounter
--- OUTSIDE RECORDS SUMMARY | 2025-03-05 02:23 | External Medical Summary | Summary of Care ---
Author Name Unknown Organization [facility] Address [address] [place] [address] Phone [phone] Care Team Providers Care Document Control Coordinator Name Role Phone Michael Hinton MD Primary Care Provider [phone] Reason for Visit * Reason Onset Date Comments [facility]: Maintenance 11/02/2024 Encounter Details Date Type Department Care Team (Late st Contact Info) Description 11/02/2024 Telephone [facility], [facility] [address] [place] [address] Peggy De, RN [address] [place] [address] [facility]: Maintenance Allergies Active Allergy Reactions Criticality Noted Date Comments Fabiano Inhibitors Cough 06/09/2017 Carbidopa W-Levodopa 03/17/2021 Constipation Nsaids Rash 05/17/2018 Contraindicated per laminating machine tender documented as of this encounter (statuses [...] 4 times a day 400 Each 3 11/07/201 8 Active DIURETIC TITRATION PLAN If no [...] mitral valve regurgitation,Co ronary artery disease involving blackfeet coronary artery of blackfeet heart without angina pectoris,Stage 3b chronic kidney [...] have staff contact office to notify of [facility] recommendation, possibly consider d.c maxzide and [...] Plan (08/08/2024 3:17 PM EDT): Follows with [facility] hematology Routine labs monitored by hem/onc Labs pending today Iron infusion 08/02 Blood transfusion 08/05 Assessment & Plan (07/15/2024 6:05 PM EDT): Follows with [facility] hematology Routine labs monitored by hem/onc Update CBC next week Assessment & Plan (03/13/2024 11:24 AM EDT): Follows with [facility] hematology Routine labs monitored by hem/onc Update CBC tomorrow PRBC transfusions 01/2024, 02/2024 Assessment & Plan (10/17/2023 9:43 AM EST): Followed closely by [facility] hematology. No identified cause of HUNTER. Weekly labs monitored by hem/onc. Most recent hgb 8.7 Assessment & Plan (05/02/2023 1:04 PM EDT): Followed closely by [facility] hematology. 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 Groves * Telephone Encounter - Peggy De RN - 11/02/2024 10:05 AM EST Communication Note Name: Jesus Jose Situation: Called [...] appts, getting in and out of vehicle Please advise documented in this encounter Plan of Treatment Upcoming Encounters Date Type Department Care Team (Late st Contact Info) Description 11/04/2024 11:00 AM EST Office Visit Family Practice [facility] [address] [place] [address] [address] Eduardo Groves MD [address] [place] [address] 11/07/2024 8:05 AM EST Laboratory Lab Mobile Phlebotomy [facility] [address] [place] [address] [facility], G[facility] Mobile Home Draw [address] [facility] [place] [address] 11/14/2024 2:30 PM EST Home Visit [facility], [facility] [address] [facility] [place] [address] Peggy De, RN [address] [place] [address] 11/21/2024 8:05 AM EST Laboratory Lab Mobile Phlebotomy [facility] [address] [facility] [place] [address] Mv, [facility] Mobile Home Draw [address] [facility] [place] [address] 11/21/2024 12:00 PM EST Office Visit Gastroenterology, [facility] [address] [facility] [place] [address] Cisco Buitrago CRNP 132 [facility] [place] [address] 03/12/2025 3:30 PM EDT Home Visit Care at Home [address] [place] [address] Betina Jacob PA-C [address] [place] [address] 03/14/2025 4:00 PM EDT Office Visit Cardiology, [facility] [address] [facility] [place] [address] Dominick Benz DO 132 [facility] [place] [address] 03/18/2025 11:15 AM EDT Office Visit Urology, [facility] [address] [facility] [place] [address] Kalpesh Funes MD [address] [place] [address] Health Maintenance Due Date Last Done Comments Diabetic Foot Exam 03/27/2021 03/27/2020, 08/23/2018 Diabetic Eye Exam 11/01/2023 11/01/2022, , 11/01/2022, Additional history exists Albumin/Creatinine Ratio 12/27/2023 023, 03/08/2019, 04/09/2014 HbA1c 11/23/2024 05/23/2024, 03/24, 12/26/2022, Additional history exists CKD PHOS USE SMARTSET 96618 12/07/202411/23, 12/26/2022, 06/21/2021 Adult Wellness Visit 03/06/2025 03/06/2024, 11/02/19 23 GFR 04/30/2025 10/31/2024, 11/2024, 10/10/2024, Additional history exists Depression Screening 08/06/2025 08/06/2024 CKD HGB USE SMARTSET 82812 10/24/202510/24, 10/24/2024, 10/10/2024, Additional history exists DTap/Tdap [...] this encounter Medical Devices Implanted Type Area Muffler Hand Device Identifier Shelf Expiration Date Model / Serial / Lot Lens Intraoc 22.5 - [id number] - [id number] Implanted:Qty: 1 on 05/22/2018 by Jasbir Maurer MD at OR [facility] Right: Eye [employer] 11/22/2022 [id number] / [id number] / [id number] Lens Intraoc 21.0 - [id number] - [id number] Implanted:Qty: 1 on 06/05/2018 by Jasbir Maurer MD at OR [facility] Left: Eye BAUSCH [employer] LOMB 12/20/2022 [id number] / [id number] / Duraclip 16mm Xlg Repostn - [id number] Implanted:Qty: 1 on 04/12/2024 by Edilberto Lujan MD at OR [facility] Prescreen [id number] 12/08/2024 [id number] / / [id number] Duraclip 16mm Xlg Repostn - [id number] Implanted:Qty: 1 on 04/12/2024 by Edilberto Lujan MD at OR [facility] Prescreen [id number] 12/08/2024 [id number] / / [id number] Duraclip 16mm Xlg Repostn - [id number] Implanted:Qty: 1 on 04/12/2024 by Edilberto Lujan MD at OR [facility] [employer]creen [id number] 12/08/2024 [id number] / / [id number] documented as of this encounter Advance Directives [...] Care Power of Attor mayela Care Teams Document Control Coordinator Relationship Specialty Start Date End Date Michael Hinton MD [address] [place] [address] PCP - General Family Medicine 08/07/17 documented as of this encounter
--- OUTSIDE RECORDS SUMMARY | 2025-03-05 02:23 | External Medical Summary | Summary of Care ---
Author Name Unknown Organization [facility] Address [address] [place] [address] Phone [phone] Care Team Providers Care Billposter Name Role Phone Michael Hinton MD Primary Care Provider [phone] Reason for Visit * Reason Comments Back Pain Pt here for c/o low back pain for the last 2 weeks. Pt reports no trauma to the area, Pt has no idea what the cause could be. Pt has been using ice and tylenol for the pain. Pt did see the chiropractor and was told to see PCP and get an xray. Pt reports that sitting here in the office right now pain is a 6 out of 10 but at soon as he stands up pain is 10 out of 10. Acute Pt reports that for at lest the last 2-3 days he has had bleeding from the right nare. Encounter Details Date Type Department Care Team (Late st Contact Info) Description 11/04/2024 11:00 AM EST Office Visit Family [facility] [address] [facility] [place] [address] Eduardo Groves MD 132 [facility] [place] [address] Acute right-sided low back pain without sciatica*; Sacroiliac joint pain; Epistaxis; Myelodysplastic syndrome (HCC); Stasis ulcer of right lower extremity (HCC); 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HCC); Chronic heart failure with preserved ejection fraction (HFpEF) (HCC); Chronic obstructive pulmonary disease, unspecified COPD type (HCC); Paroxysmal atrial fibrillation (HCC); Type 2 diabetes mellitus with diabetic chronic kidney disease, unspecified CKD stage, unspecified whether senior living insulin use (HCC); Hypertensive 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); HTN, goal below 130/80 Allergies Active Allergy Reactions Criticality Noted Date Comments Fabiano Inhibitors Cough 06/09/2017 Carbidopa High 08/30/2024 Other Reaction(s): constipation Carbidopa W-Levodopa 03/17/2021 Constipation Levodopa High 08/30/2024 Other Reaction(s): constipation Nsaids Rash 05/17/2018 Contraindicated per procurement analyst documented as of this encounter (statuses as of 11/04/2024) Medications Glucose Blood (ONETOUCH VERIO) STRPIndications: Type 2 diabetes mellitus with hemoglobin A1c goal of less than 8.0% (HCC) Use up to 4 times a day E11.9 400 Strip 3 8 Active ONETOUCH DELICA LANCETS 33G MISCIndications: Type 2 diabetes mellitus with hemoglobin A1c goal of less than 8.0% ([facility]) Use up to 4 times a [...] mitral valve regurgitation,Co ronary artery disease involving [place] coronary artery of [place] heart without angina pectoris,Stage 3b chronic [...] (09/01/2024): Follows with Dr Shannon Zhang in [place] via telemed for PD Assessment & Plan [...] knees 03/21/2018 Coronary artery disease invo lving [place] coronary artery of [place] heart without angina pectoris 03/21/2018 Assessment & [...] from 11/13/[address] bains, [facility]. 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 on file Not on file Not on fi le Not on file Not on file Not on file Not on file documented as of this encounter Last Filed Vital Signs Vital Sign Reading Time Taken Comments Blood Pressure 162/58 11/04/2024 11:08 AM EST Pulse 86 11/04/2024 11:08 AM EST Temperature 35.8 °C (96.5 °F) 11/04/2024 11:[address] Respiratory Rate 16 11/04/2024 11:08 AM EST Oxygen Saturation 99% 11/04/2024 11:08 AM EST Inhaled Oxygen Concentration - - Weight 71.8 kg (158 lb 6.4 oz) 11/04/2024 11:08 AM EST Height 165.1 cm (5' 5") 11/04/2024 11:08 AM EST Body Mass Index 26.36 11/04/2024 11:08 AM EST documented in this encounter Progress Notes * Eduardo Groves MD - 11/04/2024 11:25 AM EST Images from the original note were not included. History of Present Illness Jesus Jose is a 79 year old male that presents for Back Pain (Pt here for c/o low back pain for the last 2 weeks. Pt reports no trauma to the area, Pt has no idea what the cause could be. Pt has been using ice and tylenol for the pain. Pt did see the chiropractor and was told to see PCP and get an xray. Pt reports that sitting here in the office right now pain is a 6 out of 10 but at soon as he stands up pain is 10 out of 10.) and Acute (Pt reports that for at lest the last 2-3 days he has had bleeding from the right nare.) Physical Exam BP 162/58 (BP Site: Left Arm, BP Position: Sitting, BP Cuff Size: Regular) | Pulse 86 | Temp 96.5 °F (35.8 °C) (Tympanic) | Resp 16 | Ht 5' 5" (1.651 m) | Wt 158 lb 6.4 oz (71.8 kg) | SpO2 99% | BMI 26.36 kg/m² | BSA 1.82 m² AAOx3 Normal affect NCAT/ PERRL No active bleeding right nare but there is dried blood both inside and outside the nare as well as visible ulceration proximally in medial aspect/near septum Neck supple Throat clear Ext warm and well perfused No gross neuro deficits Slow and antalgic gait There is rotation of the spine/pelvis with the right hip more anterior Tenderess at right sacral dimple/SI joint Mild muscle spasm No pain at midline but there is mild deformity around L5 area I have reviewed most recent labs None Assessment and Plan Acute right-sided low back pain without sciatica - doubt compression fx as there was no fall/trauma that is known but will do films to evaluate. Suspect more due to positioning/prolonged sitting/sleeping in chair - XR L SPINE 2-3 VIEWS Sacroiliac joint pain - reproducible right SI joint. - XR L SPINE 2-3 VIEWS Epixtaxis - afrin 2 sprays in event of bleed and pinch/squeeze nasal bridge. Daily petrolatum/aquaphor via q tip to lower nare. Nasal salien could also be used Wrap-Up Avoid nsaids Moist heat Aspercreme patches TBD based on xrays Time: I spent a total of 30-39 minutes (exact time 32 mins) on the date of service in preparation, delivery, and documentation of the care provided to Jesus Jose excluding any time spent in the performance of separately billed services. documented in this encounter Plan of Treatment Upcoming Encounters Date Type Department Care Team (Late st Contact Info) Description 11/07/2024 8:05 AM EST Laboratory Lab Mobile Phlebotomy [facility] [address] [facility] [place] [address] Mvmg, Gml Mobile Home Draw [address] [facility] [place] [address] 11/14/2024 2:30 PM EST [facility] [place], [facility] 132 [facility] [place] [address] Peggy De RN [address] [place] [address] 11/21/2024 8:05 AM EST Laboratory Lab Mobile Phlebotomy [facility] [address] [place] [address] Mvmg, Gml Mobile Home Draw [address] [facility] [place] [address] 11/21/2024 12:00 PM EST Office Visit Gastroenterology, [facility] 132 [facility] [place] [address] Cisco Buitrago CRNP 132 [facility] [place] [address] 03/12/2025 3:30 PM EDT Home Visit Care at Home [address], [place] [id number] Betina Jacob PA-C [address] [place] [place] [address] 03/14/2025 4:00 PM EDT Office Visit Cardiology, [facility] 132 [facility] [place] [address] Dominick Benz, [address] [place] [address] 03/18/2025 11:15 AM EDT Office Visit Urology, [facility] [address] [place] [address] Kalpesh Funes MD [address] [facility] [place] [address] Pending Results Name Type Priority Associated Diagnoses Date /Time XR L SPINE 2-3 VIEWS Medical Imaging Routine Acute right-sided low back pain without sciatica Sacroiliac joint pain 11/04/2024 11:50 AM EST Health Maintenance Due Date Last Done Comments Alpha-1 Antitrypsin 1962 Diabetic Foot Exam 03/27/2021 03/27/2020, 08/23/2018 Diabetic Eye Exam 11/01/2023 11/01/2022, , 11/01/2022, Additional history exists Albumin/Creatinine Ratio 12/27/2023 023, 03/08/2019, 04/09/2014 HbA1c 11/23/2024 05/23/2024, 03/24, 12/26/2022, Additional history exists CKD PHOS USE SMARTSET 42799 12/07/202411/23, 12/26/2022, 06/21/2021 Adult Wellness Visit 03/06/2025 03/06/2024, 11/02/19 23 O2 ASSESSMENT COMPLETED IN PAST YEAR FOR COPD 04/12/2025 04/12/2024 GFR 04/30/2025 10/31/2024, 11/2024, 10/10/2024, Additional history exists Depression Screening 08/06/2025 08/06/2024 CKD HGB USE SMARTSET 81762 10/24/202510/24, 10/24/2024, 10/10/2024, Additional history exists DTap/Tdap [...] this encounter Medical Devices Implanted Type Area Radiotelegraph Operator Device Identifier Shelf Expiration Date Model / Serial / Lot Lens Intraoc 22.5 - [id number] - [id number] Implanted:Qty: 1 on 05/22/2018 by Jasbir Maurer MD at OR [facility] Right: Eye [employer] 11/22/2022 [id number] / [id number] / [id number] Lens Intraoc 21.0 - [id number] - [id number] Implanted:Qty: 1 on 06/05/2018 by Jasbir Maurer MD at OR [facility] Left: Eye BAUSCH [employer] LOMB 12/20/2022 [id number] / [id number] / Duraclip 16mm Xlg Repostn - [id number] Implanted:Qty: 1 on 04/12/2024 by Edilberto Lujan MD at OR [facility] [employer] [id number] 12/08/2024 [id number] / / [id number] Duraclip 16mm Xlg Repostn - [id number] Implanted:Qty: 1 on 04/12/2024 by Edilberto Lujan MD at OR [facility] [employer] [id number] 12/08/2024 [id number] / / [id number] Duraclip 16mm Xlg Repostn - [id number] Implanted:Qty: 1 on 04/12/2024 by Edilberto Lujan MD at OR [facility] [employer] [id number] 12/08/2024 [id number] / / [id number] documented as of this encounter Visit Diagnoses [...] hemoglobin A1c goal of less than 8.0% ([facility]) Gastro-esophageal reflux disease without esophagitis Esophageal [...] peripheral angiopathy without gangrene, unspecified whether senior living insulin use (HCC) Coronary artery disease involving [place] coronary artery of [place] heart without angina pectoris Hypertensive heart and [...] mitral valve regurgitation Coronary artery disease involving [place] coronary artery of [place] heart without angina pectoris Paroxysmal atrial fibrillation [...] mitral valve regurgitation Coronary artery disease involving [place] coronary artery of [place] heart without angina pectoris Stage 3b chronic [...] infection Acute apical periodontitis of pulpal origin Acute right-sided low back pain without sciatica- Primary Sacroiliac joint pain Disorders of sacrum Epistaxis Myelodysplastic syndrome (HCC) Myelodysplastic syndrome, unspecified Stasis ulcer of right lower extremity (HCC) 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HCC) Chronic heart failure with preserved ejection fraction (HFpEF) (HCC) Chronic obstructive pulmonary disease, unspecified COPD type (HCC) Paroxysmal atrial fibrillation (HCC) Atrial fibrillation Type 2 diabetes mellitus with diabetic chronic kidney disease, unspecified CKD stage, unspecified whether manager long term care insulin use (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 Power of Attor mayela [phone] ([place]) Care Teams Billposter Relationship Specialty Start Date End Date Michael Hinton MD [address] [place] [address] PCP - General Family Medicine 08/07/17 documented as of this encounter
--- OUTSIDE RECORDS SUMMARY | 2025-03-05 02:24 | External Medical Summary ---
Author Name Unknown Address Unknown Organization [id number] [address] [place] [address] Laboratory Report Ordering Provider Test Date Status MAUREEN TSANG 10/31/2024 09:25:00 Final Observation Date Value Abnormality Reference (Units ) Status BUN 10/31/2024 09:25:00 32 Above high normal 6-20 (mg/dL) Final Creatinine 10/31/2024 09:25:00 1.7 Above high normal 0.6-1.2 (mg/dL) Final Glomerular filtration rate/1.73 sq M.predicted [Volume Rate/Area] in Serum, Plasma or Blood by Creatinine-based formula (CKD-EPI) 10/31/2024 09:25:00 40 Below low normal >=60 (mL/min) Final eGFR is calculated based on the CKD-EPI 2020 equation. Sodium 10/31/2024 09:25:00 140 135-146 (m mol/L) Final Potassium 10/31/2024 09:25:00 4.0 3.5-5.1 (m mol/L) Final Cl 10/31/2024 09:25:00 100 98-107 (mm ol/L) Final CO2 10/31/2024 09:25:00 27 22-32 (mmo l/L) Final Anion gap 10/31/2024 09:25:00 13 7-15 (mmol /L) Final Glucose 10/31/2024 09:25:00 172 Above high normal 70 -120 (mg/dL) Final Calcium 10/31/2024 09:25:00 9.9 8.4-10.2 ( mg/dL) Final Performing Location [facility]ORY [facility] 57-[address] 0 - [address] [place] [address]
--- OUTSIDE RECORDS SUMMARY | 2025-03-05 02:24 | External Medical Summary ---
Author Name Unknown Address Unknown Organization [id number]:[facility] - [address] [place] [address] Laboratory Report Ordering Provider Test Date Status GUERRERO CHAUHAN 10/24/2024 10:04:00 Final Observation Date Value Abnormality Reference (Units ) Status Ferritin 10/24/2024 10:04:00 509 Above high normal 30 -400 (ng/mL) Final Performing Location [facility] - [address] [place] [address]
--- OUTSIDE RECORDS SUMMARY | 2025-03-05 02:24 | External Medical Summary ---
Author Name Unknown Address Unknown [id number] [address] [place] [address] Laboratory Report Ordering Provider Test Date Status GUERRERO CHAUHAN 10/24/2024 10:04:00 Final Observation Date Value Abnormality Reference (Units ) Status Nucleated erythrocytes/100 leukocytes [Ratio] in Blood by Automated count 10/24/2024 10:04:00 Final Per[facility] - [address] [place] [id number]
--- OUTSIDE RECORDS SUMMARY | 2025-03-05 02:24 | External Medical Summary | Summary of Care ---
Author Name Unknown Organization [facility] Address [address] [place] [address] Phone [phone] Care Team Providers Care Property Loss Insurance Claim Adjuster Name Role Phone Michael Hinton MD Primary Care Provider [phone] [phone] Encounter Details Date Type Department Care Team (Late st Contact Info) Description 10/29/2024 Orders Only PATIENT PORTAL DO NOT DELETE THIS DEPT USED BY [place] [id number] Allergies Active Allergy Reactions Criticality Noted Date Comments Fabiano Inhibitors Cough 06/09/2017 Carbidopa W-Levodopa 03/17/2021 Constipation Nsaids Rash 05/17/2018 Contraindicated per passenger elevator operator documented as of this encounter (statuses as of 10/29/2024) Medications Glucose Blood (ONETOUCH VERIO) STRPIndications: Type [...] daily in the morning 90 Tablet 3 08/03/2024 12:15 PM EDT 4 Active Allopurinol 300 MG Oral Tablet [...] mitral valve regurgitation,Co ronary artery disease involving [place] coronary artery of [place] heart without angina pectoris,Stage 3b chronic kidney disease (HCC) Take 3 Tablets by mouth once a day on Monday, Monday, and Monday only AND 2 Tablets once a day on Monday, , Monday, and Monday only. 5 Active documented as of this encounter (statuses as of 10/29/2024) Active Problems Problem Noted Date Diagnosed Date [...] have staff contact office to notify of [facility] recommendation, possibly consider d.c maxzide and [...] anemia in Aug with drop to 4.3. [facility] now monitoring counts weekly. Pt very [...] (09/01/2024): Follows with Dr Shannon Zhang in [place] via telemed for PD Assessment & Plan [...] knees 03/21/2018 Coronary artery disease invo lving [place] coronary artery of [place] heart without angina pectoris 03/21/2018 Assessment & [...] as of this encounter (statuses as of 10/29/2024) Resolved Problems Problem Noted Date Diagnosed Date [...] as of this encounter (statuses as of 10/29/2024) Immunizations Name Administration Dates Next Due COVID-19 mRNA, LNP-s, No Pre serve, 2-Dose Series (CAPNIA) 11/03/2021,12/19/2020,11/28/2020 Covid-19 Ad26, Single Dose (iConclude/J&J) 12/19/2020,11/28/2020 DTaP Dipth/Tet/Acell Pertussis (Infanrix), Peds 10/24/2019 Pneumococcal Conjugate Vacc, 13 Valent (Prevnar) 04/27/2016 Pneumococcal Polysaccharide PPV23 (Pneumovax) 08/27/2009 Season Influenza, Quad, PF, Adjuvanted, 65+ Yrs, IM (FLUAD) 07/07/2020 Seasonal Influenza Vac., MDV , IM, 0.5 mL (Fluzone) 08/23/2016,07/03/2015,07/14/2014,06/23,07/13/2012,07/15/2011,07/27/20 10,07/02/2009,09/03/2008,08/28/2007,1 10/28/2005 07/06/2014 Seasonal Influenza Virus Vac cine, Unspecified Formulation 07/07/2020,07/31/2019,07/04/2018,10/01/2017,08/23/2016,07/25/2016,07/03/20 15,07/14/2014,07/06/2013,07/13/2012,0 07/15/2011,07/27/2010,07/02/2009,09/03,08/28/2007,08/28/2006, 5 Seasonal Influenza, High Dos [...] 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 on file Not on fi le Not on file Not on file Not on file Not on file documented as of this encounter Plan of Treatment Upcoming Encounters Date Type Department Care Team (Late st Contact Info) Description 10/31/2024 7:10 AM EST Laboratory [facility] [address] [place] [address] [facility] [address] [place], [place] [address] 11/07/2024 8:05 AM EST Laboratory [facility] [address] [place] [address] [facility] [address] [place] [address] 11/14/2024 2:30 PM EST Home Visit [facility], [facility] [address] [facility] [place] [address] Peggy De, RN [address] [place] [address] 11/21/2024 8:05 AM EST Laboratory [facility] [address] [facility] [place] [address] [facility] [address] [facility] [place] [address] 11/21/2024 12:00 PM EST Office Visit Gastroenterology, [facility] [address] [facility] [place] [address] Cisco Buitrago CRNP [address] [facility] [place] [address] 03/12/2025 3:30 PM EDT Home Visit Care at Home [address] [place] [address] Betina Jacob PA-C [address] [place] [address] 03/14/2025 4:00 PM EDT Office Visit Cardiology, [facility] [address] [facility] [place] [address] Dominick Benz, [address] [place] [address] 03/18/2025 11:15 AM EDT Office Visit Urology, [facility] [address] [place] [address] Kalpesh Funes MD [address] [place] [address] Health Maintenance Due Date Last Done Comments Diabetic Foot Exam 03/27/2021 03/27/2020, 08/23/2018 Diabetic Eye Exam 11/01/2023 11/01/2022, , 11/01/2022, Additional history exists Albumin/Creatinine Ratio 12/27/2023 023, 03/08/2019, 04/09/2014 HbA1c 11/23/2024 05/23/2024, 03/24, 12/26/2022, Additional history exists CKD PHOS USE SMARTSET 74164 12/07/202411/23, 12/26/2022, 06/21/2021 Adult Wellness Visit 03/06/2025 03/06/2024, 11/02/19 23 GFR 04/23/2025 10/24/2024, 09/22, 09/26/2024, Additional history exists Depression Screening 08/06/2025 08/06/2024 CKD HGB USE SMARTSET 69790 10/24/202510/24, 10/24/2024, 10/10/2024, Additional history exists DTap/Tdap [...] this encounter Medical Devices Implanted Type Area Mannequin Molder Device Identifier Shelf Expiration Date Model / Serial / Lot Lens Intraoc 22.5 - [id number] - [id number] Implanted:Qty: 1 on 05/22/2018 by Jasbir Maurer MD at OR [facility] Right: Eye [employer]USCH [employer] LOMB 11/22/2022 [id number] / [id number] / [id number] Lens Intraoc 21.0 - [id number] - [id number] Implanted:Qty: 1 on 06/05/2018 by Jasbir Maurer MD at OR [facility] Left: Eye BAUSCH [employer] LOMB 12/20/2022 [id number] / [id number] / Duraclip 16mm Xlg Repostn - [id number] Implanted:Qty: 1 on 04/12/2024 by Edilberto Lujan MD at OR [facility] [employer] [id number] 12/08/2024 [id number] / / [id number] Duraclip 16mm Xlg Repostn - [id number] Implanted:Qty: 1 on 04/12/2024 by Edilberto Lujan MD at OR [facility] [employer]MED NACHO [id number] 12/08/2024 [id number] / / [id number] Duraclip 16mm Xlg Repostn - [id number] Implanted:Qty: 1 on 04/12/2024 by Edilberto Lujan MD at OR [facility] [employer] [id number] 12/08/2024 [id number] / / [id number] documented as of this encounter Advance Directives [...] Name Relationship Healthcare Agent [facility] Communication Ashley Fantasma Jose Spouse Health Care Power of Attor mayela Care Teams Property Loss Insurance Claim Adjuster Relationship Specialty Start Date End Date Mary Jane, Michael Dominick, MD [address] [place] [address] PCP - General Family Medicine 08/07/17 documented as of this encounter
--- OUTSIDE RECORDS SUMMARY | 2025-03-05 02:24 | External Medical Summary ---
Author Name Unknown Address Unknown Organization [facility] [address] [place] [id number] Laboratory Report Ordering Provider Test Date Status MAUREEN TSANG 10/24/2024 10:04:00 Final Observation Date Value Abnormality Reference (Units ) Status BUN 10/24/2024 10:04:00 38 Above high normal 6-20 (mg/dL) Final Creatinine 10/24/2024 10:04:00 2.1 Above high normal 0.6-1.2 (mg/dL) Final Glomerular filtration rate/1.73 sq M.predicted [Volume Rate/Area] in Serum, Plasma or Blood by Creatinine-based formula (CKD-EPI) 10/24/2024 10:04:00 31 Below low normal >=60 (mL/min) Final eGFR is calculated based on the CKD-EPI 2020 equation. Sodium 10/24/2024 10:04:00 142 135-146 (m mol/L) Final Potassium 10/24/2024 10:04:00 4.5 3.5-5.1 (m mol/L) Final Cl 10/24/2024 10:04:00 100 98-107 (mm ol/L) Final CO2 10/24/2024 10:04:00 30 22-32 (mmo l/L) Final Anion gap 10/24/2024 10:04:00 12 7-15 (mmol /L) Final Glucose 10/24/2024 10:04:00 187 Above high normal 70 -120 (mg/dL) Final Calcium 10/24/2024 10:04:00 9.2 8.4-10.2 ( mg/dL) Final Performing Location [facility] [address] [place] [address]
--- OUTSIDE RECORDS SUMMARY | 2025-03-05 02:24 | External Medical Summary ---
Author Name Unknown Address Unknown Organization [facility] [address] [place] [address] Laboratory Report Ordering Provider Test Date Status GUERRERO CHAUHAN 10/24/2024 10:04:00 Final Observation Date Value Abnormality Reference (Units ) Status WBC, Total 10/24/2024 10:04:00 5.28 4.00-10.8 0 (K/uL) Final RBC 10/24/2024 10:04:00 3.88 4.50-5.25 (M/uL) Final Hemoglobin 10/24/2024 10:04:00 12.5 Below low normal 14 .0-16.8 (g/dL) Final HCT 10/24/2024 10:04:00 39.6 Below low normal 40. 0-48.4 (%) Final MCV 10/24/2024 10:04:00 102.1 82.0-99.5 (fL) Final MCH 10/24/2024 10:04:00 32.2 27.0-34.0 (pg) Final MCHC 10/24/2024 10:04:00 31.6 32.0-36.0 (g/dL) Final RDW 10/24/2024 10:04:00 17.0 11.5-15.5 (%) Final Platelets 10/24/2024 10:04:00 141 140-400 (K /uL) Final MPV 10/24/2024 10:04:00 10.2 6.6-11.1 ( fL) Final Performing Location [facility]ORY [facility] [address] [place] [address]
--- OUTSIDE RECORDS SUMMARY | 2025-03-05 02:24 | External Medical Summary ---
Author Name Unknown Address Unknown Organization [facility] [address] [place] [address] Laboratory Report Ordering Provider Test Date Status GUERRERO CHAUHAN 10/24/2024 10:04:00 Final Observation Date Value Abnormality Reference (Units ) Status SYNC LEUKOCYTES IN BLOOD BY AUTOMATED COUNT 10/24/2024 10:04:00 5.28 4.00-10.80 (K/uL) Final Segs 10/24/2024 10:04:00 72.1 40.0-75.0 (%) Final Lymphs % 10/24/2024 10:04:00 20.5 18.0-42.0 (%) Final Monos 10/24/2024 10:04:00 6.1 1.0-11.0 (%) Final Eosinophils 10/24/2024 10:04:00 0.9 0.0-6.0 (%) Final Basos 10/24/2024 10:04:00 0.4 0.0-2.0 (%) Final Absolute Segs 10/24/2024 10:04:00 3.81 1.80-7.70 (K/uL) Final Lymphs, absolute 10/24/2024 10:04:00 1.08 1.00-4.80 (K/ul) Final Monos, Abs 10/24/2024 10:04:00 0.32 0.00-1.10 (K/uL) Final Eos, Abs 10/24/2024 10:04:00 0.05 0.00-0.70 (K/uL) Final Basos, Abs 10/24/2024 10:04:00 0.02 0.00-0.20 (K/uL) Final Performing Location [facility] [address] [place] [address]
--- OUTSIDE RECORDS SUMMARY | 2025-03-05 02:24 | External Medical Summary | Summary of Care ---
Author Name Unknown Organization [facility] Address [address] [place] [address] Phone [phone] Care Team Providers Care Revenue Cycle Administrator Name Role Phone Michael Hinton MD Primary Care Provider +1 -[phone] Encounter Details Date Type Department Care Team (Late st Contact Info) Description 10/24/2024 Population Health External Data Unspecified Department Allergies Active Allergy Reactions Criticality Noted Date Comments Fabiano Inhibitors Cough 06/09/2017 Carbidopa W-Levodopa 03/17/2021 Constipation Nsaids Rash 05/17/2018 Contraindicated per fisheries technical officer documented as of this encounter (statuses [...] 1 10/22/2024 4:39 PM EST 4 Active documented as of this encounter [...] pants feel tight") Medication Regimen: o Beta Shledon Therapy: Metoprolol Succinate (ER) o FABIANO Inhibitor/ARB [...] staff contact office to notify of [facility] recommendation, possibly consider d.c maxzide and [...] PM EDT): Follows with [facility] hematology Routine labs monitored by hem/onc Labs pending today Iron infusion 08/02 Blood transfusion 08/05 Assessment & Plan (07/15/2024 6:05 PM EDT): Follows with [facility] hematology Routine labs monitored by hem/onc Update CBC next week Assessment & Plan (03/13/2024 11:24 AM EDT): Follows with [facility] hematology Routine labs monitored by hem/onc Update CBC tomorrow PRBC transfusions 01/2024, 02/2024 Assessment & Plan (10/17/2023 9:43 AM EST): Followed closely by [facility] hematology. No identified cause of HUNTER. Weekly labs monitored by hem/onc. Most recent hgb 8.7 Assessment & Plan (05/02/2023 1:04 PM EDT): Followed closely by [facility] hematology. No identified cause of HUNTER. Weekly labs monitored by hem/onc. Most recent hgb stable 10.5. Assessment & Plan (03/28/2023 1:27 PM EDT): Received blood transfusion 03/24 -will follow-up CBC on 06/08 -continue ferrous sulfate. Dose once daily. Med list updated Assessment & Plan (10/19/2022 1:20 PM EST): Followed by hem/onc. Had severe anemia in Nov with drop to 4.3. [facility] now monitoring counts weekly. 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 on file Not on fi le Not on file Not on file Not on file Not on file documented as of this encounter Plan of Treatment Upcoming Encounters Date Type Department Care Team (Late st Contact Info) Description 10/31/2024 7:10 AM EST Laboratory Lab [facility] [address] [place] [address] [facility] [address] [place] [address] 11/07/2024 8:05 AM EST Laboratory [facility] [address] [place] [address] [facility] [address] [facility] [place] [address] 11/14/2024 2:30 PM EST Home Visit [facility] [address] [place] [address] Peggy De, RN [address] [place] [address] 11/21/2024 8:05 AM EST Laboratory [facility] [address] [place] [address] [facility] Draw [address] [facility] [place], [place] [address] 11/21/2024 12:00 PM EST Office Visit Gastroenterology, [facility] [address] [facility] [place] [address] Cisco Buitrago CRNP [address] [facility] [place] [address] 03/12/2025 3:30 PM EDT Home Visit Care at Home [address] [place], [place] [id number] Betina Jacob PA-C [address] [place], [place] [id number] 03/14/2025 4:00 PM EDT Office Visit Cardiology, [facility] [address] [facility] [place] [address] Dominick Benz, [address] [facility] [place] [address] 03/18/2025 11:15 AM EDT Office Visit Urology, [facility] [address] [facility] [place] [address] Kalpesh Funes MD [address] [place] [id number] Health Maintenance Due Date Last Done Comments Diabetic Foot Exam 03/27/2021 03/27/2020, 08/23/2018 Diabetic Eye Exam 11/01/2023 11/01/2022, , 11/01/2022, Additional history exists Albumin/Creatinine Ratio 12/27/2023 023, 03/08/2019, 04/09/2014 HbA1c 11/23/2024 05/23/2024, 03/24, 12/26/2022, Additional history exists CKD PHOS USE SMARTSET 12894 12/07/202411/23, 12/26/2022, 06/21/2021 Adult Wellness Visit 03/06/2025 03/06/2024, 11/02/19 23 GFR 04/23/2025 10/24/2024, 09/22, 09/26/2024, Additional history exists Depression Screening 08/06/2025 08/06/2024 CKD HGB USE SMARTSET 28445 10/24/202510/24, 10/24/2024, 10/10/2024, Additional history exists DTap/Tdap [...] this encounter Medical Devices Implanted Type Area Registered Pharmacist Device Identifier Shelf Expiration Date Model / Serial / Lot Lens Intraoc 22.5 - [id number] - [id number] Implanted:Qty: 1 on 05/22/2018 by Jasbir Maurer MD at OR [facility] Right: Eye [employer]CH [employer] LOMB 11/22/2022 [id number] / [id number] / [id number] Lens Intraoc 21.0 - [id number] - [id number] Implanted:Qty: 1 on 06/05/2018 by Jasbir Maurer MD at OR [facility] Left: Eye BAUSCH & LOMB 12/20/2022 [id number] / [id number] / Duraclip 16mm Xlg Repostn - [id number] Implanted:Qty: 1 on 04/12/2024 by Edilberto Lujan MD at OR [facility] [employer]MED [employer]ACHO [id number] 12/08/2024 [id number] / / [id number] Duraclip 16mm Xlg Repostn - [id number] Implanted:Qty: 1 on 04/12/2024 by Edilberto Lujan MD at OR [facility] [employer]ACH[employer] [id number] 12/08/2024 [id number] / / [id number] Duraclip 16mm Xlg Repostn - [id number] Implanted:Qty: 1 on 04/12/2024 by Edilberto Lujan MD at OR [facility] [employer]MED [employer]ACHO [id number] 12/08/2024 [id number] / / [id number] documented as of this encounter Advance Directives [...] Relationship Healthcare Agent [employer] Communication Ashley Jose Spouse Health Care Power of Attor mayela Care Teams Revenue Cycle Administrator Relationship Specialty Start Date End Date Michael Hinton MD [address] [place] [address] PCP - General Family Medicine 08/07/17 documented as of this encounter
--- OUTSIDE RECORDS SUMMARY | 2025-03-05 02:24 | External Medical Summary | Summary of Care ---
Author Name Unknown Organization [facility] Address [address] [place] [address] Phone [phone] Care Team Providers Care Feeder Associate Name Role Phone Michael Hinton MD Primary Care Provider [phone] Reason for Visit * Reason Onset Date Comments [facility]: Maintenance 10/18/2024 Encounter Details Date Type Department Care Team (Late st Contact Info) Description 10/18/2024 Telephone [facility], [facility] [address] [place] [address] Karina Wynn, POWER PROJECT MANAGER [address] [place] [address] [facility]: Maintenance Allergies Active Allergy Reactions Criticality Noted Date Comments Fabiano Inhibitors Cough 06/09/2017 Carbidopa W-Levodopa 03/17/2021 Constipation Nsaids Rash 05/17/2018 Contraindicated per food beverage server documented as of this encounter (statuses as of 10/18/2024) Medications Glucose Blood (ONETOUCH VERIO) STRPIndications: Type [...] 1 09/12/2024 6:55 AM EST 4 Active Donepezil HCl 5 MG Oral Tablet (Aricept) Take 1 tablet (5 mg total) by mouth every morning 90 Tablet 07/23/2024 11:27 AM EDT 4 Active Additional Information Patient taking differently: 10 mg Oral Daily(AM), Reported on 10/09/2024 Triamcinolone Acetonide 0.1 % External Ointment (Aristocort) [...] 3 08/27/2024 12:35 PM EST 4 Active Torsemide 20 MG Oral Tablet (Demadex)Indicat ions:Paroxysmal atrial fibrillation (HCC),Nonrheumat ic mitral valve regurgitation,Co ronary artery disease involving paimiut coronary artery of paimiut heart without angina pectoris,Stage 3b chronic kidney disease (HCC) take three tablets by mouth in the morning 270 Tablet 3 08/27/2024 11:54 AM EST 4 Active Potassium Chloride 20 MEQ/15ML [...] 3 10/10/2024 4:25 PM EST 4 Active documented as of this encounter (statuses as of 10/18/2024) Active Problems Problem Noted Date Diagnosed Date [...] have staff contact office to notify of [facility] recommendation, possibly consider d.c maxzide and [...] Plan (08/08/2024 3:17 PM EDT): Follows with [facility] hematology Routine labs monitored by hem/onc Labs pending today Iron infusion 08/02 Blood transfusion 08/05 Assessment & Plan (07/15/2024 6:05 PM EDT): Follows with [facility] hematology Routine labs monitored by hem/onc Update CBC next week Assessment & Plan (03/13/2024 11:24 AM EDT): Follows with [facility] hematology Routine labs monitored by hem/onc Update CBC tomorrow PRBC transfusions 01/2024, 02/2024 Assessment & Plan (10/17/2023 9:43 AM EST): Followed closely by [facility] hematology. No identified cause of HUNTER. Weekly labs monitored by hem/onc. Most recent hgb 8.7 Assessment & Plan (05/02/2023 1:04 PM EDT): [facility] (09/01/2024): Follows with Dr Shannon Zhang in [place] via telemed for PD Assessment & Plan [...] as of this encounter (statuses as of 10/18/2024) Resolved Problems Problem Noted Date Diagnosed Date [...] See scanned document from 11/13/[address] herson, [facility]. 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 Jesus will wait about a hour or so and recheck BP /pulse.. Denies any dizziness, double/blurred vision at this time . * Telephone Encounter - Karina Wynn LPN - 10/18/2024 11:21 AM EST Images from the original note were not included. [facility] Remote Patient Monitoring Unable to contact patient: Trigger type: trigger for severe hypertension BP 191/87, pulse of 111 Abnormal reading(s): Device(s) Triggered: Current Health: Plan: Call to pt no answer left VM requesting a return call to [facility] at [phone] opt#3 F/u call scheduled for tomorrow documented in this encounter Plan of Treatment Upcoming Encounters Date Type Department Care Team (Late st Contact Info) Description 10/24/2024 8:05 AM EST Laboratory Lab Mobile Phlebotomy [facility] [address] [facility] [place], [place] [address] M[facility], [facility] Home Draw [address] [place], [place] [address] 11/07/2024 8:05 AM EST Laboratory Lab Mobile Phlebotomy [facility] [address] [facility] [place], [place] [address] M[facility], [facility] Mobile Home Draw [address] [place], [place] [address] 11/14/2024 2:30 PM EST Home Visit [facility], [facility] [address] [place] [address] [address] Peggy De, RN [address] [place] [address] 11/21/2024 8:05 AM EST Laboratory Lab Mobile Phlebotomy [facility] [address] [place] [address] [facility], [facility] Mobile Home Draw [address] [facility] [place] [address] 11/21/2024 12:00 PM EST Office Visit Gastroenterology, [facility] [address] [place] [address] Cisco Buitrago CRNP [address] [facility] [place] [address] 03/12/2025 3:30 PM EDT Home Visit [facility] at Home [address], [place] [id number] Betina Jacob PA-C [address], [place] [id number] 03/14/2025 4:00 PM EDT Office Visit Cardiology, [facility] [address] [facility] [place] [address] Dominick Benz DO [address] [place] [address] 03/18/2025 11:15 AM EDT Office Visit Urology, [facility] [address] [facility] [place] [address] Kalpesh Funes MD [address] [place] [id number] Health Maintenance Due Date Last Done Comments Diabetic Foot Exam 03/27/2021 03/27/2020, 08/23/2018 Diabetic Eye Exam 11/01/2023 11/01/2022, , 11/01/2022, Additional history exists Albumin/Creatinine Ratio 12/27/2023 023, 03/08/2019, 04/09/2014 HbA1c 11/23/2024 05/23/2024, 03/24, 12/26/2022, Additional history exists CKD PHOS USE SMARTSET 46600 12/07/202411/23, 12/26/2022, 06/21/2021 Adult Wellness Visit 03/06/2025 03/06/2024, 11/02/19 23 GFR 04/10/2025 10/10/2024, 02/2024, 09/12/2024, Additional history exists Depression Screening 08/06/2025 08/06/2024 CKD HGB USE SMARTSET 68402 10/10/202510/10, 10/10/2024, 09/26/2024, Additional history exists DTap/Tdap Vaccines (4 - [...] this encounter Medical Devices Implanted Type Area Thermostat Machine Tender Device Identifier Shelf Expiration Date Model / Serial / Lot Lens Intraoc 22.5 - [id number] - [id number] Implanted:Qty: 1 on 05/22/2018 by Jasbir Maurer MD at OR [facility] Right: Eye [employer]OM[employer] 11/22/2022 [id number] / [id number] / [id number] Lens Intraoc 21.0 - [id number] - [id number] Implanted:Qty: 1 on 06/05/2018 by Jasbir Maurer MD at OR [facility] Left: Eye BAUSCH [employer] LOMB 12/20/2022 [id number] / [id number] / Duraclip 16mm Xlg Repostn - [id number] Implanted:Qty: 1 on 04/12/2024 by Edilberto Lujan MD at OR [facility] [employer] [id number] 12/08/2024 [id number] / / [id number] Duraclip 16mm Xlg Repostn - [id number] Implanted:Qty: 1 on 04/12/2024 by Edilberto Lujan MD at OR [facility] [employer] [id number] 12/08/2024 [id number] / / [id number] Duraclip 16mm Xlg Repostn - [id number] Implanted:Qty: 1 on 04/12/2024 by Edilberto Lujan MD at OR [facility] [employer] [id number] 12/08/2024 [id number] / / [id number] documented as of this encounter Advance Directives [...] File Name Relationship Healthcare Agent [facility] Communication Ashley Fantasma Jose Spouse Health Care Power of Attor larose Care Teams Feeder Associate Relationship Specialty Start Date End Date Michael Hinton MD [address] [place] [address] PCP - General Family Medicine 08/07/17 documented as of this encounter
--- OUTSIDE RECORDS SUMMARY | 2025-03-05 02:25 | External Medical Summary | Summary of Care ---
Author Name Unknown Organization [facility] Address [address] [place] [address] Phone [phone] Care Team Providers Care Research Affiliate Name Role Phone Michael Hinton MD Primary Care Provider [phone] Reason for Visit * Reason Onset Date Comments Order Request 10/17/2024 Tuyet Encounter Details Date Type Department Care Team (Late st Contact Info) Description 10/17/2024 Telephone Cardiology, [facility] [address] [facility] [place] [address] Dominick Benz, DO [address] [place] [address] Order Request (Tuyet) Allergies Active Allergy Reactions Criticality Noted Date Comments Fabiano Inhibitors Cough 06/09/2017 Carbidopa W-Levodopa 03/17/2021 Constipation Nsaids Rash 05/17/2018 Contraindicated per assistant women's soccer coach documented as of this encounter (statuses as of 10/17/2024) Medications Glucose Blood (ONETOUCH VERIO) STRPIndications: Type [...] mitral valve regurgitation,Co ronary artery disease involving cahto coronary artery of cahto heart without angina pectoris,Stage 3b chronic kidney [...] in the morning. 90 Capsule 3 4 Active Atorvastatin Calcium 40 MG Oral [...] as of this encounter (statuses as of 10/17/2024) Active Problems Problem Noted Date Diagnosed Date [...] have staff contact office to notify of [facility] recommendation, possibly consider d.c maxzide and maximize [...] Plan (08/08/2024 3:17 PM EDT): Follows with [facility] hematology Routine labs monitored by hem/onc Labs pending today Iron infusion 08/02 Blood transfusion 08/05 Assessment & Plan (07/15/2024 6:05 PM EDT): Follows with [facility] hematology Routine labs monitored by hem/onc Update CBC next week Assessment & Plan (03/13/2024 11:24 AM EDT): Follows with [facility] hematology Routine labs monitored by hem/onc Update CBC tomorrow PRBC transfusions 01/2024, 02/2024 Assessment & Plan (10/17/2023 9:43 AM EST): Followed closely by [facility] hematology. No identified cause of HUNTER. Weekly labs monitored by hem/onc. Most recent hgb 8.7 Assessment & Plan (05/02/2023 1:04 PM EDT): Followed closely by [facility] hematology. No identified cause of HUNTER. Weekly [...] (09/01/2024): Follows with Dr Shannon Zhang in [place] via telemed for PD Assessment & Plan (09/01/2024 7:15 PM EST): Continue aricept and amantadine Family assists with 24 care Assessment & Plan (08/08/2024 3:14 PM EDT): Continue aricept and amantadine Family assists with 24/ care Assessment & Plan (07/15/2024 6:06 PM [...] knees 03/21/2018 Coronary artery disease invo lving cahto coronary artery of cahto heart without angina pectoris 03/21/2018 Assessment & [...] as of this encounter (statuses as of 10/17/2024) Resolved Problems Problem Noted Date Diagnosed Date [...] as of this encounter (statuses as of 10/17/2024) Immunizations Name Administration Dates Next Due COVID-19 mRNA, LNP-s, No Pre serve, 2-Dose Series (DEXMA) 11/03/2021,12/19/2020,11/28/2020 Covid-19 Ad26, Single Dose (Soy/J&J) 12/19/2020,11/28/2020 [...] 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 Patient will start Jardiance today and have labs drawn on 10/24/24 as scheduled. * Telephone Encounter - Dominick Benz DO - 10/17/2024 12:39 PM EST It appears patient was having basic metabolic panels performed every 2 weeks with regards to his anemia. His recent chemistry panel revealed stable findings. He was to start back on Jardiance 10 milligrams daily and have a repeat chemistry panel 7 to 10 days after the new medication. It was okay with me if he has the basic metabolic panel drawn on 10/24/2023 and I changed the order, but if he will have not started the Jardiance by then we will still need to repeat another one I am not certain if he was received the Jardiance from the mail-order pharmacy in his started it. If hehas a and can start it, the 10/24/2024 panel should be fine Dominick Benz DO * Telephone Encounter - Martha Alexander OSA - 10/17/2024 10:29 AM EST Person calling: Ashley Relationship to patient: Phone/Fax to return call: [phone] Reason for call(brief): lab orders Pharmacy: na Provider Name:Dr. Benz Detailed message to office:Current lab order states expected 10/31, however gave incorrect date,mobile lab is coming /. Please advise. Thanks documented in this encounter Plan of Treatment Upcoming Encounters Date Type Department Care Team (Late st Contact Info) Description 10/24/2024 8:05 AM EST Laboratory Lab Mobile Phlebotomy [facility] [address] [place] [address] Mvmg, Gml Mobile Home Draw [address] [place] [address] 11/07/2024 8:05 AM EST Laboratory Lab Mobile Phlebotomy [facility] [address] [place] [address] Mvmg, Gml Mobile Home Draw [address] [place] [address] 11/14/2024 2:30 PM EST [facility], [facility] [address] [facility] [place] [address] Peggy De, RN [address] [facility] [place] [address] 11/21/2024 8:05 AM EST Laboratory Lab Mobile Phlebotomy [facility] [address] [facility] [place] [address] Mvmg, Gml Mobile Home Draw [address] [facility] [place] [address] 11/21/2024 12:00 PM EST Office Visit Gastroenterology, [facility] [address] [facility] [place] [address] Cisco Buitrago CRNP [address] [facility] [place] [address] 03/12/2025 3:30 PM EDT Home Visit [facility] at Home [address] [place] [address] Betina Jacob PA-C [address] [place] [address] 03/14/2025 4:00 PM EDT Office Visit Cardiology, [facility] [address] [facility] [place] [address] Dominick Benz DO [address] [facility] [place] [address] 03/18/2025 11:15 AM EDT Office Visit Urology, [facility] [address] [facility] [place] [address] Kalpesh Funes MD [address] [place] [address] Health Maintenance Due Date Last Done Comments Diabetic Foot Exam 03/27/2021 03/27/2020, 08/23/2018 Diabetic Eye Exam 11/01/2023 11/01/2022, , 11/01/2022, Additional history exists Albumin/Creatinine Ratio 12/27/2023 023, 03/08/2019, 04/09/2014 HbA1c 11/23/2024 05/23/2024, 03/24, 12/26/2022, Additional history exists CKD PHOS USE SMARTSET 61560 12/07/202411/23, 12/26/2022, 06/21/2021 Adult Wellness Visit 03/06/2025 03/06/2024, 11/02/19 23 GFR 04/10/2025 10/10/2024, 02/2024, 09/12/2024, Additional history exists Depression Screening 08/06/2025 08/06/2024 CKD HGB USE SMARTSET 78238 10/10/202510/10, 10/10/2024, 09/26/2024, Additional history exists DTap/Tdap [...] this encounter Medical Devices Implanted Type Area Concrete Inspector Device Identifier Shelf Expiration Date Model / Serial / Lot Lens Intraoc 22.5 - [id number] - [id number] Implanted:Qty: 1 on 05/22/2018 by Jasbir Maurer MD at OR [facility] Right: Eye BAUSCH [employer] LOMB 11/22/2022 [id number] / [id number] / [id number] Lens Intraoc 21.0 - [id number] - [id number] Implanted:Qty: 1 on 06/05/2018 by Jasbir Maurer MD at OR [facility] Left: Eye BAUSCH & LOMB 12/20/2022 [id number] / [id number] / Duraclip 16mm Xlg Repostn - [id number] Implanted:Qty: 1 on 04/12/2024 by Edilberto Lujan MD at OR [facility] [employer] [id number] 12/08/2024 [id number] / / [id number] Duraclip 16mm Xlg Repostn - [id number] Implanted:Qty: 1 on 04/12/2024 by Edilberto Lujan MD at OR [facility] [employer] [id number] 12/08/2024 [id number] / / [id number] Duraclip 16mm Xlg Repostn - [id number] Implanted:Qty: 1 on 04/12/2024 by Edilberto Lujan MD at OR [facility] [employer] [id number] 12/08/2024 [id number] / / [id number] documented as of this encounter Advance Directives [...] File Name Relationship Healthcare Agent [facility] p Communication Ashley Jose Spouse Health Care Power of Attor mayela Care Teams Research Affiliate Relationship Specialty Start Date End Date Michael Hinton MD [address] [place] [address] PCP - General Family Medicine 08/07/17 documented as of this encounter
--- OUTSIDE RECORDS SUMMARY | 2025-03-05 02:25 | External Medical Summary | Summary of Care ---
Author Name Unknown Organization [facility] Address [address] [place] [address] Phone [phone] Care Team Providers Care Freelance Photographer Name Role Phone Michael Hinton MD Primary Care Provider [phone] Reason for Visit * Reason Comments Follow Up Encounter Details Date Type Department Care Team (Late st Contact Info) Description 10/08/2024 10:30 AM EST Office Visit Cardiology, [facility] [address] [facility] [place] [address] Trinh Reddy, [address] [place] [address] Chronic heart failure with preserved ejection fraction (HFpEF) (HCC)*; Paroxysmal atrial fibrillation (HCC); Nonrheumatic mitral valve regurgitation; Iron deficiency anemia due to chronic blood loss Allergies Active Allergy Reactions Criticality Noted Date Comments Fabiano Inhibitors Cough 06/09/2017 Carbidopa W-Levodopa 03/17/2021 Constipation Nsaids Rash 05/17/2018 Contraindicated per furniture assembly supervisor documented as of this encounter (statuses as of 10/17/2024) Medications Glucose Blood (ONETOUCH VERIO) STRPIndications :Type 2 diabetes mellitus with hemoglobin A1c goal of less than 8.0% (HCC) Use up to 4 times a day E11.9 400 Strip 3 08/29/20 18 Active ONETOUCH DELICA LANCETS 33G MISCIndications :Type 2 diabetes mellitus with hemoglobin A1c goal of less than 8.0% ([facility]) Use up to 4 times [...] 2 4 10:13 AM EST 11/06/19 24 2024 Active Escitalopram Oxalate 20 MG Oral Tablet (Lexapro) take one tablet by mouth daily in the morning 90 Tablet 3 4 12:15 PM EDT 02/09/20 24 Active Allopurinol 300 MG Oral Tablet (Zyloprim) Take 1 Tablet by mouth in the morning. 90 Tablet 3 4 4:32 PM EDT 05/13/20 24 Active Amantadine HCl 100 MG Oral Capsule (Symmetrel) Take 1 capsule (100 mg total) by mouth daily . 90 Capsule 1 4 6:55 AM EST 06/11/20 24 Active Donepezil HCl 5 MG Oral Tablet (Aricept) Take 1 tablet (5 mg total) by mouth every morning 90 Tablet 4 11:27 AM EDT 07/22/20 24 Active Additional Information Patient taking differently: 10 [...] in the morning. 90 Tablet 3 4 12:35 PM EST 08/26/20 24 Active Torsemide 20 MG Oral Tablet (Demadex)Indica tions:Paroxysma l atrial fibrillation (HCC),Nonrheuma tic mitral valve regurgitation,C oronary artery disease involving [place] coronary artery of [place] heart without angina pectoris,Stage 3b chronic kidney disease (HCC) take three tablets by mouth in the morning 270 Tablet 3 4 11:54 AM EST 08/26/20 24 Active Potassium Chloride 20 MEQ/15ML (10%) Oral SolutionIndicat ions:Chronic diastolic 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 (HCC) Take 15 mL by mouth in the morning. 1500 mL 3 4 11:54 AM EST 08/26/20 24 Active Dificid 200 MG Oral Tablet (Fidaxomicin) Take 1 Tablet by mouth every other day. 35 Tablet 08/29/20 24 Active Colestipol HCl 1 GM Oral Tablet (Colestid) take 2 tablets by mouth with supper and 2 tablets by mouth at bedtime. Adjust as needed. 360 Tablet 3 4 1:26 PM EST 09/11/20 24 Active Spironolactone 25 MG Oral Tablet (Aldactone) Take one-half Tablet by mouth in the morning. 45 Tablet 3 4 11:58 AM EST 09/17/20 24 Active Dutasteride 0.5 MG Oral Capsule (Avodart) Take 1 Capsule by mouth in the morning. 90 Capsule 3 09/17/20 24 Active Atorvastatin Calcium 40 MG Oral Tablet (Lipitor)Indica tions:Dyslipide ray Take 1 Tablet by mouth in the morning. 90 Tablet 3 4 4:44 PM EST 09/25/20 24 Active Empagliflozin 10 MG Oral Tablet (Jardiance) Take 1 Tablet by mouth in the morning. Do not start before October 28, 2024. 90 Tablet 3 4 11:54 AM EST 10/28/19 25 Active metFORMIN HCl ER 500 MG Oral Tablet Extended Release 24 Hour (Glucophage XR) Take 1 Tablet by mouth daily. 100 Tablet 3 3 8:51 AM EDT 06/23/20 23 2023 Discontinued buPROPion HCl ER (XL) 150 MG Oral Tablet Extended Release 24 Hour (Wellbutrin XL) Take 1 Tablet by mouth in the morning. 90 Tablet 3 3 10:54 AM EST 10/13/20 23 2023 Discontinued(R efill) Empagliflozin 10 MG Oral Tablet (Jardiance) Take 1 Tablet by mouth in the morning. 90 Tablet 3 10/08/20 24 2023 Discontinued(M edication/Dose Changed) documented as of this encounter (statuses as [...] have staff contact office to notify of [facility] recommendation, possibly consider d.c maxzide and [...] Plan (08/08/2024 3:17 PM EDT): Follows with [facility] hematology Routine labs monitored by hem/onc Labs pending today Iron infusion 08/02 Blood transfusion 08/05 Assessment & Plan (07/15/2024 6:05 PM EDT): Follows with [facility] hematology Routine labs monitored by hem/onc Update CBC next week Assessment & Plan (03/13/2024 11:24 AM EDT): Follows with [facility] hematology Routine labs monitored by hem/onc Update CBC tomorrow PRBC transfusions 01/2024, 02/2024 Assessment & Plan (10/17/2023 9:43 AM EST): Followed closely by [facility] hematology. No identified cause of HUNTER. Weekly labs monitored by hem/onc. Most recent hgb 8.7 Assessment & Plan (05/02/2023 1:04 PM EDT): Followed closely by [facility] hematology. 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 Not on file Not on fi le Not on file Not on file Not on file Not on file documented as of this encounter Last Filed Vital Signs Vital Sign Reading Time Taken Comments Blood Pressure 140/70 10/08/2024 10:34 AM EST Pulse 76 10/08/2024 10:34 AM EST Temperature - - Respiratory Rate 14 10/08/2024 10:34 AM EST Oxygen Saturation - - Inhaled Oxygen Concentration - - Weight 74.1 kg (163 lb 6.4 oz) 10/08/2024 10:34 AM EST Height - - Body Mass Index 27.19 06/13/2024 1:03 PM EDT documented in this encounter Patient Instructions * Patient Instructions* Trinh Reddy DO - 10/08/2024 11:17 AM EST Start Jardiance 10 milligrams by mouth daily but wait until October,. Have a repeat basic metabolic panel performed after you have been on the medication for 7 to 10 days. documented in this encounter Progress Notes * Trinh Reddy DO - 10/08/2024 10:50 AM EST 10/08/2024 Cardiology Follow Up SUBJECTIVE: History of Present Illness Jesus Jose, a patient with a history of venous stasis ulcers in both lower extremities, was recently seen by Dr. Jw Cobos in endovascular medicine consultation on 10/02/24.. Venous and arterial testing revealed no significant superficial or deep system venous reflux and only mild to moderately reduced distal arterial and toe pressures. As such, endovascular ablation was not indicated, and arterial revascularization was not deemed necessary for wound healing. The patient presents in follow up having been seen by the undersinged 6 weeks ago. He is accompanied by his spouse, Ashley. The patient has been attending [facility] wound care clinic and reports improvement in the healing of theulcers. The use of compression wraps has significantly reduced the swelling in the patient's legs. The patient is currently on a regimen of torsemide, taking three 20mg tablets daily, and spironolactone at a dose of 12.5mg. The patient's kidney function and electrolyte levels were last checked on September 26, with a creatinine level of 1.5, which was stable compared to previous measurements. The patient also has a history of transfusion-dependent anemia. The patient's hemoglobin levels have been fluctuating, with rapid decreases noted. The patient has been experiencing issues with bowel control, with symptoms of watery stools and incontinence. The patient has a history of irritable bowel syndrome and has had C. diff infection threetimes in the past. The patient was recently started on colestipol to help form the stools, but there has been minimal improvement. The patient also has a history of paroxysmal atrial fibrillation and valvular heart disease, with both mitral regurgitation and aortic valve regurgitation. The patient's heart rate was noted to be regular at the last visit, with a rate of 76 beats per minute. The patient is not currently on anti-platelet therapy or anticoagulation due to the history of transfusion-dependent anemia. The patient also has a history of diabetes, which is currently not being managed with metformin dueto kidney dysfunction. The patient's most recent hemoglobin A1c was 8.3%. The patient also has Parkinson's disease and uses a walker to aid with gait and reduce the risk of falls. 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 2.Chronic diastolic CHF, NYHA class 3 -lower extremity venous stasis wounds, following with [place] wound center 3.Valvular heart disease with at least moderate mitral insufficiency and moderate aortic insufficiency 4.Paroxysmal atrial fibrillation-off anticoagulation due to bleeding concern 5.Prostatic hypertrophy 6.CKD 7.Parkinson's disease with related gait instability and dementia- follows with [facility] 8.Significant anemia- follows with [facility] heme, gets IV iron transfusions Extensive ROS: All systems reviewed & are unremarkable except as noted in HPI & below Cardiovascular (chest pain/palpitations/fluttering/diaphoresis/dyspnea on exertion/paroxysmally nocturnal dyspnea):Negative Review of patient's allergies indicates: Allergen Reactions Fabiano Inhibitors Cough Carbidopa W-Levodopa Constipation Nsaids Rash Contraindicated per furniture assembly supervisor Current Outpatient Medications Medication Sig Dispense Refill Glucose Blood (ONETOUCH VERIO) STRP Use up to 4 times a day E11.9 400 Strip 3 ONETOUCH DELICA LANCETS 33G MISC Use up to 4 times a day 400 Each 3 DIURETIC TITRATION PLAN If no improvement on day 3, contact heart failure managing provider. 1 Each0 buPROPion HCl ER (XL) 150 MG Oral Tablet Extended Release 24 Hour (Wellbutrin XL) Take 1 Tablet by mouth in the morning. 90 Tablet 3 Betamethasone Dipropionate 0.05 % External Ointment APPLY TO SKIN LESIONS AND SCALP LESIONS UP TO TWO TIMES A DAY FOR NO LONGER THAN 2 WEEKS AT A TIME FOR ITCH. (THEN TAKE A 2 WEEK BREAK) 45 g 2 Escitalopram Oxalate 20 MG Oral Tablet (Lexapro) take one tablet by mouth daily in the morning 90 Tablet 3 Allopurinol 300 MG Oral Tablet (Zyloprim) Take 1 Tablet by mouth in the morning. 90 Tablet 3 Amantadine HCl 100 MG Oral Capsule (Symmetrel) Take 1 capsule (100 mg total) by mouth daily . 90 Capsule 1 Donepezil HCl 5 MG Oral Tablet (Aricept) Take 1 tablet (5 mg total) by mouth every morning (Patienttaking differently: Take 2 Tablets by mouth in the morning.) 90 Tablet 0 Triamcinolone Acetonide 0.1 % External Ointment (Aristocort) Apply to legs daily with dressing changes 454 g 1 Saccharomyces boulardii 250 MG Oral Capsule (Florastor) Take 1 Capsule by mouth in the morning and 1 Capsule before bedtime. 90 Capsule 3 Metoprolol Succinate ER 50 MG Oral Tablet Extended Release 24 Hour (Toprol XL) Take 1 Tablet by mouth in the morning. 90 Tablet 3 Torsemide 20 MG Oral Tablet (Demadex) take three tablets by mouth in the morning 270 Tablet 3 Potassium Chloride 20 MEQ/15ML (10%) Oral Solution Take 15 mL by mouth in the morning. 1500 mL 3 Dificid 200 MG Oral Tablet (Fidaxomicin) Take 1 Tablet by mouth every other day. 35 Tablet 0 Colestipol HCl 1 GM Oral Tablet (Colestid) take 2 tablets by mouth with supper and 2 tablets by mouth at bedtime. Adjust as needed. 360 Tablet 3 Spironolactone 25 MG Oral Tablet (Aldactone) Take one-half Tablet by mouth in the morning. 45 Tablet 3 Dutasteride 0.5 MG Oral Capsule (Avodart) Take 1 Capsule by mouth in the morning. 90 Capsule 3 Atorvastatin Calcium 40 MG Oral Tablet (Lipitor) Take 1 Tablet by mouth in the morning. 90 Tablet 3 No current facility-administered medications for this visit. OBJECTIVE/PHYSICAL EXAMINATION: BP 140/70 | Pulse 76 | Resp 14 | Wt 74.1 kg (163 lb 6.4 oz) | BMI 27.19 kg/m² | BSA 1.84 m² General: no acute distress and stated age Eyes: conjunctiva are pink and non-injected, sclera clear Neck: normal jugular venous pulse, no hepatojugular reflux Chest: normal shape and normal respiratory effort Lungs: clear to auscultation , no rales rhonchi or wheezing Cardiac Exam: - regular heart sounds,2/6 SM Abdomen: abdomen soft, non-tender, no abnormal masses and no hepatosplenomegaly Musculoskeletal: no gait disturbance, no weakness Extremities: 1+ lower extremity edema, knee-high compression stockings in place, less edema compared to previous Cardiology visit in early August, Neuro: grossly normal exam Psych: appropriate affect and insight. Data: Results Latest Reference Range & Units 05/23/24 10:43 Hemoglobin A1C 4.0 - 5.6 % 8.3 (H) (H): Data is abnormally high RADIOLOGY Venous duplex: No significant superficial or deep system venous reflux (10/02/2024) Arterial duplex: Evidence of tibial disease, mild to moderately reduced distal arterial and toe pressures (10/02/2024) EKG: Atrial fibrillation, heart rate 121 bpm (08/22/2024), occasional PVCs Capsule endoscopy: Small bowel arterial venous malformation (2022) Echocardiogram: Left ventricular ejection fraction 65-70%, moderate aortic regurgitation, moderate to severe mitral regurgitation, mild tricuspid regurgitation (05/05/2024) Colonoscopy: No significant findings (09/2023) EGD: No significant findings (09/2023) March, Argon plasma coagulation: Three angioectasias of the ileum treated Zio patch performed in August, revealing sinus rhythm with average rate of 87 beats per minute, frequent premature atrial contractions, 34% Pac burden, multiple short runs of atrial tachycardia and a 5 beat run of nonsustained ventricular tachycardia. Patient markers correlated with sensed atrial ectopy and super ventricular tachycardia. Transesophageal echocardiogram 04/22/2020: Prolapse of the posterior mitral valve leaflet Moderate mitral regurgitation Eccentric anteriorly directed MR jet Latest Reference Range & Units 09/26/24 10:05 SODIUM 135 - 146 mmol/L 142 POTASSIUM 3.5 - 5.1 mmol/L 4.4 CHLORIDE 98 - 107 mmol/L 101 CO2 22 - 32 mmol/L 32 BUN 6 - 20 mg/dL 27 (H) CREATININE 0.6 - 1.2 mg/dL 1.5 (H) EGFR >=60 mL/min 45 (L) ANION GAP 7 - 15 mmol/L 9 GLUCOSE 70 - 120 mg/dL 175 (H) CALCIUM 8.4 - 10.2 mg/dL 9.2 (H): Data is abnormally high (L): Data is abnormally low Assessment & Plan Venous Stasis Ulcers Chronic venous stasis ulcers in both lower extremities. Recent venous and arterial testing showed no significant superficial or deep system venous reflux and mild to moderately reduced distal arterial and toe pressures. No indication for venous ablation or arterial revascularization. Ongoing therapy with diuretics and compression stockings has shown marked improvement in swelling and wound healing. Discussed with Dr. Cobos, who concurred with the current management plan. - Continue torsemide 60 mg daily and spironolactone 12.5 mg daily - Continue use of compression stockings - Use lymphedema pump twice daily Chronic Diastolic Heart Failure Chronic diastolic heart failure with fluid retention. Current treatment includes torsemide 60 mg daily and spironolactone 12.5 mg daily. Recent kidney function stable with creatinine at 1.5. Discussed the need for ongoing monitoring and potential future adjustments based on clinical status. - Continue torsemide 60 mg daily - Continue spironolactone 12.5 mg daily -at back Jardiance, been on 25 milligrams daily, discontinued about a year ago, perhaps related to renal insufficiency, but kidney function has been stable, resume at lower dose, 10 milligrams daily. Paroxysmal Atrial Fibrillation Paroxysmal atrial fibrillation managed with metoprolol succinate 50 mg daily for rate control. Heart rate well-managed at 76 bpm, regular rhythm. Not on anticoagulation due to transfusion-dependent anemia. Discussed the risks and benefits of anticoagulation and the decision to avoid it due to anemia. 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 Hemoglobin levels fluctuate rapidly. Scheduled for blood work and potential transfusion if needed. Recent hemoglobin A1c at 8.3%. Discussed the need for close monitoring and potential transfusions based on lab results. - Perform blood work on October 09, 2024 - Prepare for potential transfusion on October 11, 2024 Diabetes Mellitus Diabetes mellitus with recent hemoglobin A1c of 8.3%. Previous treatment with metformin discontinued due to kidney function concerns. Considering reintroduction of Jardiance at a lower dose. Discussed the risks of lactic acidosis with metformin in the context of kidney dysfunction and the potential benefits of Jardiance for both diabetes and fluid retention. - Start Jardiance 10 mg daily starting in October,, waiting till October due to issues with insurance coverage gap since it was the end of the year - Perform basic metabolic panel 7-10 days after starting Jardiance - Schedule blood work with mobile lab on October 31, 2024 and November 14, 2024 Diarrhea Chronic irritable bowel syndrome and history of Clostridium difficile colitis with recurrent diarrhea. Currently on Dificid for recurrent C. diff infection. Colestipol started on September 11, 2024, with minimal improvement. Discussed the need for further evaluation and management by gastroenterology. - patient's spouse to contact gastroenterology for recommendations with regards to management of diarrhea Parkinson's Disease Parkinson's disease with gait instability. Using a walker to reduce fall risk. - Continue using walker for gait assistance Follow up : Follow Up: Return in about 4 months (around 02/06/2025) for Clinic Visit. | For: Clinic Visit Patient seen in longitudinal follow up of the above issues with assessment and plan as documented. Trinh Reddy DO Cardiology, [address] [address] Text in this note was generated using an ambient documentation service. I discussed the use of a device to record and summarize our discussion today. All persons present during the encounter consented to its use. documented in this encounter Nursing Notes * Gisel Corado LPN - 10/08/2024 10:33 AM EST Examination Room: 12 Name: Jesus Jose Date of : 1945 Reason for Visit: Follow-up Problems/Concerns: Medication questions Interim Hosp(s): None Chest Pain/SOB: Denies MyChart Discussed: ALREADY ACTIVE Patient was instructed to not get up on the exam table until directed and assisted by their provider; patient is to remain seated in the chair/ wheelchair/ exam table for fall prevention and safety reasons. Patient is aware staff will assist stepping down off exam table with personnel. documented in this encounter Miscellaneous Notes * Addendum Note - Trinh Reddy DO - 10/17/2024 12:39 PM ESTAddended by: TRINH REDDY on: 10/17/2024 12:39 PM Modules accepted: Orders documented in this encounter Plan of Treatment Upcoming Encounters Date Type Department Care Team (Late st Contact Info) Description 10/24/2024 8:05 AM EST Laboratory Lab Mobile Phlebotomy [facility] [address] [place] [address] [facility] Draw [address] [place] [address] 11/07/2024 8:05 AM EST Laboratory Lab Mobile Phlebotomy [facility] [address] [place] [address] [facility], [facility] Mobile Home Draw [address] [facility] [place] [address] 11/14/2024 2:30 PM EST Home Visit [facility] [address] [facility] [place] [address] Peggy De RN [address] [facility] [place] [address] 11/21/2024 8:05 AM EST Laboratory Lab Mobile Phlebotomy [facility] [address] [place] [address] [facility], [facility] Mobile Home Draw [address] [place] [address] 11/21/2024 12:00 PM EST Office Visit Gastroenterology, [facility] [address] [facility] [place] [address] Cisco Buitrago CRNP [address] [place] [address] 03/12/2025 3:30 PM EDT Home Visit Care at Home [address] [place] [address] Betina Jacob PA-C [address] [place] [address] 03/14/2025 4:00 PM EDT Office Visit Cardiology, [facility] [address] [place] [address] Trinh Reddy DO [address] [place] [address] 03/18/2025 11:15 AM EDT Office Visit Urology, [facility] [address] [facility] [place] [address] Kalpesh Funes MD [address] [place] [address] Scheduled Orders Name Type Priority Associated Diagnoses Orde r Schedule BASIC METABOLIC PANEL Lab Routine Chronic heart failure with preserved ejection fraction (HFpEF) ([facility]) Expected: 10/24/2024, Expires: 10/17/2025 Health Maintenance Due Date Last Done Comments Diabetic Foot Exam 03/27/2021 03/27/2020, 08/23/2018 Diabetic Eye Exam 11/01/2023 11/01/2022, , 11/01/2022, Additional history exists Albumin/Creatinine Ratio 12/27/2023 023, 03/08/2019, 04/09/2014 HbA1c 11/23/2024 05/23/2024, 03/24, 12/26/2022, Additional history exists CKD PHOS USE SMARTSET 75609 12/07/202411/23, 12/26/2022, 06/21/2021 Adult Wellness Visit 03/06/2025 03/06/2024, 11/02/19 23 GFR 04/10/2025 10/10/2024, 02/2024, 09/12/2024, Additional history exists Depression Screening 08/06/2025 08/06/2024 CKD HGB USE SMARTSET 51740 10/10/202510/10, 10/10/2024, 09/26/2024, Additional history exists DTap/Tdap [...] this encounter Medical Devices Implanted Type Area Patent Law Specialist Device Identifier Shelf Expiration Date Model / Serial / Lot Lens Intraoc 22.5 - [id number] - [id number] Implanted:Qty: 1 on 05/22/2018 by Jasbir Maurer MD at OR [facility] Right: Eye [employer] 11/22/2022 [id number] / [id number] / [id number] Lens Intraoc 21.0 - [id number] - [id number] Implanted:Qty: 1 on 06/05/2018 by Jasbir Maurer MD at OR [facility] Left: Eye [employer] 12/20/2022 [id number] / [id number] / Duraclip 16mm Xlg Repostn - [id number] Implanted:Qty: 1 on 04/12/2024 by Edilberto Lujan MD at OR [facility] [employer] [id number] 12/08/2024 [id number] / / [id number] Duraclip 16mm Xlg Repostn - [id number] Implanted:Qty: 1 on 04/12/2024 by Edilberto Lujan MD at OR [facility] [employer] [id number] 12/08/2024 [id number] / / [id number] Duraclip 16mm Xlg Repostn - [id number] Implanted:Qty: 1 on 04/12/2024 by Edilberto Lujan MD at OR [facility] [employer] [id number] 12/08/2024 [id number] / / [id number] documented as of this encounter Visit Diagnoses [...] goal of less than 8.0% ([facility]) Gastro-esophageal reflux disease without esophagitis Esophageal [...] gangrene, unspecified whether senior care insulin use (HCC) Coronary artery disease involving [place] coronary artery of [place] heart without angina pectoris Hypertensive heart and [...] valve regurgitation Coronary artery disease involving [place] coronary artery of [place] heart without angina pectoris Paroxysmal atrial fibrillation [...] valve regurgitation Coronary artery disease involving [place] coronary artery of [place] heart without angina pectoris Stage 3b chronic [...] (HCC) Atrial fibrillation Nonrheumatic mitral valve regurgitation Iron deficiency anemia due to chronic blood [...] Power of Attor mayela Care Teams Freelance Photographer Relationship Specialty Start Date End Date Michael Hinton MD [address] [place] [address] PCP - General Family Medicine 08/07/17 documented as of this encounter
--- OUTSIDE RECORDS SUMMARY | 2025-03-05 02:25 | External Medical Summary | Summary of Care ---
Author Name Unknown Organization [facility] Address [address] [place] [address] Phone [phone] Care Team Providers Care Wheel Installer Name Role Phone Michael Hinton MD Primary Care Provider [phone] Reason for Visit * Reason Onset Date Comments [facility]: Maintenance 10/18/2024 Encounter Details Date Type Department Care Team (Late st Contact Info) Description 10/18/2024 Telephone [facility], [facility] [address] [facility] [place] [address] Karina Wynn, STEEL PAN FORM PLACING SUPERVISOR [address] [place] [address] [facility]: Maintenance Allergies Active Allergy Reactions Criticality Noted Date Comments Fabiano Inhibitors Cough 06/09/2017 Carbidopa W-Levodopa 03/17/2021 Constipation Nsaids Rash 05/17/2018 Contraindicated per music video director documented as of this encounter (statuses [...] mitral valve regurgitation,Co ronary artery disease involving [place] coronary artery of [place] heart without angina pectoris,Stage 3b chronic kidney [...] 3:17 PM EDT): Follows with [facility] hematology Routine labs monitored by hem/onc Labs pending today Iron infusion 08/02 Blood transfusion 08/05 Assessment & Plan (07/15/2024 6:05 PM EDT): Follows with [facility] hematology Routine labs monitored by hem/onc Update CBC next week Assessment & Plan (03/13/2024 11:24 AM EDT): Follows with [facility] hematology Routine labs monitored by hem/onc Update CBC tomorrow PRBC transfusions 01/2024, 02/2024 Assessment & Plan (10/17/2023 9:43 AM EST): Followed closely by [facility] hematology. No identified cause of HUNTER. Weekly labs monitored by hem/onc. Most recent hgb 8.7 Assessment & Plan (05/02/2023 1:04 PM EDT): Followed closely by [facility] hematology. No identified cause of HUNTER. 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 [place], [place] [address] Mvmg, Gml Mobile Home Draw [address] [employer] [place], [place] [address] 11/07/2024 8:05 AM EST Laboratory Lab Mobile Phlebotomy [facility] [address] [facility] [place], [place] [address] Mvmg, Gml Mobile Home Draw [address] [employer] [place], [place] [address] 11/14/2024 2:30 PM EST [facility] Visit [facility], [facility] [address] [place] [address] [address] Peggy De, RN [address] [place] [address] 11/21/2024 8:05 AM EST Laboratory Lab Mobile Phlebotomy [facility] [address] [employer] [place] [address] Mvmg, Gml Mobile Home Draw [address] [facility] [place] [address] 11/21/2024 12:00 PM EST Office Visit Gastroenterology, [facility] [address] [place] [address] Cisco Buitrago CRNP [address] [facility] [place] [address] 03/12/2025 3:30 PM EDT Home Visit Care at Home [address], [place] [id number] Betina Jacob PA-C [address] [place], [place] [id number] 03/14/2025 4:00 PM EDT Office Visit Cardiology, [facility] [address] [facility] [place] [address] Dominick Benz DO [address] [place] [address] 03/18/2025 11:15 AM EDT Office Visit Urology, [facility] [address] [facility] [place] [address] Kalpesh Funes MD [address] [place] [id number] Health Maintenance Due Date Last Done Comments Diabetic Foot Exam 03/27/2021 03/27/2020, 08/23/2018 Diabetic Eye Exam 11/01/2023 11/01/2022, , 11/01/2022, Additional history exists Albumin/Creatinine Ratio 12/27/2023 023, 03/08/2019, 04/09/2014 HbA1c 11/23/2024 05/23/2024, 03/24, 12/26/2022, Additional history exists CKD PHOS USE SMARTSET 43613 12/07/202411/23, 12/26/2022, 06/21/2021 Adult Wellness Visit 03/06/2025 03/06/2024, 11/02/19 23 GFR 04/10/2025 10/10/2024, 02/2024, 09/12/2024, Additional history exists Depression Screening 08/06/2025 08/06/2024 CKD HGB USE SMARTSET 30826 10/10/202510/10, 10/10/2024, 09/26/2024, Additional history exists DTap/Tdap [...] this encounter Medical Devices Implanted Type Area Brickmason Contractor Device Identifier Shelf Expiration Date Model / Serial / Lot Lens Intraoc 22.5 - [id number] - [id number] Implanted:Qty: 1 on 05/22/2018 by Jasbir Maurer MD at OR [facility] Right: Eye [employer] LOMB 11/22/2022 [id number] / [id number] / [id number] Lens Intraoc 21.0 - [id number] - [id number] Implanted:Qty: 1 on 06/05/2018 by Jasbir Maurer MD at OR [facility] Left: Eye [employer]CH [employer] LOMB 12/20/2022 [id number] / [id number] / Duraclip 16mm Xlg Repostn - [id number] Implanted:Qty: 1 on 04/12/2024 by Edilberto Lujan MD at OR [facility] CONMED NACHO [id number] 12/08/2024 [id number] / / [id number] Duraclip 16mm Xlg Repostn - [id number] Implanted:Qty: 1 on 04/12/2024 by Edilberto Lujan MD at OR [facility] CONMED NACHO [id number] 12/08/2024 [id number] / / [id number] Duraclip 16mm Xlg Repostn - [id number] Implanted:Qty: 1 on 04/12/2024 by Edilberto Lujan MD at OR [facility] CONMED NACHO [id number] 12/08/2024 [id number] / / [id number] documented as of this encounter Advance Directives [...] Agents on File Name Relationship Healthcare Agent [facility] Communication Ashley Fantasma Jose Spouse Health Care Power of Attor pen[place] furnace Care Teams Wheel Installer Relationship Specialty Start Date End Date Michael Hinton MD [address] [place] [address] PCP - General Family Medicine 08/07/17 documented as of this encounter
--- OUTSIDE RECORDS SUMMARY | 2025-03-05 02:26 | External Medical Summary ---
Author Name Unknown Address Unknown Organization [id number]:[facility] [place] [facility] [address] [facility] [place] [address] Laboratory Report Ordering Provider Test Date Status ALIZA ABARCA 10/10/2024 10:44:00 Final Observation Date Value Abnormality Reference (Units ) Status WBC, Total 10/10/2024 10:44:00 4.43 4.00-10.80 (K/uL) Final RBC 10/10/2024 10:44:00 3.62 4.50-5.25 (M/uL) Final Hemoglobin 10/10/2024 10:44:00 11.4 Below low normal 14.0-16.8 (g/dL) Final HCT 10/10/2024 10:44:00 36.9 Below low normal 40.0-48.4 (%) Final MCV 10/10/2024 10:44:00 101.9 82.0-99.5 (fL) Final MCH 10/10/2024 10:44:00 31.5 27.0-34.0 (pg) Final MCHC 10/10/2024 10:44:00 30.9 32.0-36.0 (g/dL) Final RDW 10/10/2024 10:44:00 16.7 11.5-15.5 (%) Final Platelets 10/10/2024 10:44:00 110 Below low normal 140-400 (K/uL) Final MPV 10/10/2024 10:44:00 9.7 6.6-11.1 (fL) Final Nucleated erythrocytes/100 leukocytes [Ratio] in Blood by Automated count 10/10/2024 10:44:00 0 <=0 (/100 WBCs) Final Performing Location [facility] [place] [address] [place] [address]
--- OUTSIDE RECORDS SUMMARY | 2025-03-05 02:26 | External Medical Summary | Summary of Care ---
Author Name Unknown Organization [facility] Address [address] [place] [address] Phone [phone] Care Team Providers Care Roads Supervisor Name Role Phone Michael Hinton MD Primary Care Provider [phone] Encounter Details Date Type Department Care Team (Late st Contact Info) Description 10/09/2024 Refill [facility], [facility] [address] [facility] [place] [address] Peggy De RN [address] [facility] [place] [address] FABIANO (generalized anxiety disorder)* Allergies Active Allergy Reactions Criticality Noted Date Comments Fabiano Inhibitors Cough 06/09/2017 Carbidopa W-Levodopa 03/17/2021 Constipation Nsaids Rash 05/17/2018 Contraindicated per geothermal production manager documented as of this encounter (statuses as of 10/10/2024) Medications Glucose Blood (ONETOUCH VERIO) STRPIndications: Type [...] 2 11/07/2023 10:13 AM EST 11/06/19 24 025 Active Escitalopram Oxalate 20 MG Oral Tablet (Lexapro) take one tablet by mouth daily in the morning 90 Tablet 3 08/03/2024 12:15 PM EDT 02/09/20 24 Active Allopurinol 300 MG Oral Tablet (Zyloprim) Take 1 Tablet by mouth in the morning. 90 Tablet 3 08/06/2024 4:32 PM EDT 05/13/20 24 Active Amantadine HCl 100 MG Oral Capsule (Symmetrel) Take 1 capsule (100 mg total) by mouth daily . 90 Capsule 1 09/12/2024 6:55 AM EST 06/11/20 24 Active Donepezil HCl 5 MG Oral Tablet (Aricept) Take 1 tablet (5 mg total) by mouth every morning 90 Tablet 07/23/2024 11:27 AM EDT 07/22/20 24 Active Additional [...] 08/27/2024 12:35 PM EST 08/26/20 24 Active Torsemide 20 MG Oral Tablet (Demadex)Indicat ions:Paroxysmal atrial fibrillation (HCC),Nonrheumat ic mitral valve regurgitation,Co ronary artery disease involving redding coronary artery of redding heart without angina pectoris,Stage 3b chronic kidney disease (HCC) take three tablets by mouth in the morning 270 Tablet 3 08/27/2024 11:54 AM EST 08/26/20 24 Active Potassium [...] Tablet 3 09/11/2024 1:26 PM EST 09/11/20 Active Spironolactone 25 MG Oral Tablet (Aldactone) [...] mouth in the morning. 90 Tablet 3 10/10/20 24 Active buPROPion HCl ER (XL) 150 MG Oral Tablet Extended Release 24 Hour (Wellbutrin XL) Take 1 Tablet by mouth in the morning. 90 Tablet 3 10/14/2023 10:54 AM EST 10/13/20 23 024 Discontin ued(Refil l) documented as of this encounter (statuses as of 10/10/2024) Active Problems Problem Noted Date Diagnosed Date [...] have staff contact office to notify of [facility] recommendation, possibly consider d.c maxzide and maximize [...] 3:17 PM EDT): Follows with [facility] hematology Routine labs monitored by hem/onc Labs pending today Iron infusion 08/02 Blood transfusion 08/05 Assessment & Plan (07/15/2024 6:05 PM EDT): Follows with [facility] hematology Routine labs monitored by hem/onc Update CBC next week Assessment & Plan (03/13/2024 11:24 AM EDT): Follows with [facility] hematology Routine labs monitored by hem/onc Update CBC tomorrow PRBC transfusions 01/2024, 02/2024 Assessment & Plan (10/17/2023 9:43 AM EST): Followed closely by [facility] hematology. No identified cause of HUNTER. Weekly labs monitored by hem/onc. Most recent hgb 8.7 Assessment & Plan (05/02/2023 1:04 PM EDT): Followed closely by [facility] hematology. No identified cause of HUNTER. Weekly [...] (09/01/2024): Follows [place] Dr Shannon Zhang [place]med for PD Assessment & Plan [...] of redding heart without angina pectoris 03/21/2018 Assessment & [...] EDT): -Continue amantadine Followed by Dr. Shannon Bwoman via telemedicine Assessment & Plan (03/13/2024 11:25 [...] as of this encounter (statuses as of 10/10/2024) Resolved Problems Problem Noted Date Diagnosed Date [...] (H) 09/09/2019 07:46 AM HEMOGLOBIN A1C - ISINGER 6.4 (H) 03/08/2019 07:14 AM ] Major [...] as of this encounter (statuses as of 10/10/2024) Immunizations Name Administration Dates Next Due COVID-19 mRNA, LNP-s, No Pre serve, 2-Dose Series (Shnergle) 11/03/2021,12/19/2020,11/28/2020 Covid-19 Ad26, Single Dose (Soy/J&J) 12/19/2020,11/28/2020 DTaP Dipth/Tet/Acell Pertussis (Infanrix), Peds 10/24/2019 Pneumococcal Conjugate Vacc, 13 Valent (Prevnar) 04/27/2016 Pneumococcal Polysaccharide PPV23 (Pneumovax) 08/27/2009 Season Influenza, Quad, PF, Adjuvanted, 65+ Yrs, IM (FLUAD) 07/07/2020 Seasonal Influenza Vac., MDV , IM, 0.5 mL (Fluzone) 08/23/2016,07/03/2015,07/14/2014,06/23,07/13/2012,07/15/2011,07/27/20,07/02/2009,09/03/2008,08/28/2007,1 10/28/2005 07/06/2014 Seasonal Influenza Virus Vac cine, [...] 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 Not on fi le Not on file Not on file Not on file Not on file documented as of this encounter Miscellaneous Notes * Telephone Encounter - Jeni Carpenter PA-C - 10/10/2024 2:13 PM ESTSigned Prescriptions: Disp Refills buPROPion HCl ER (XL) 150 MG Oral Tablet E*90 Tab*3 Sig: Take 1 Tablet by mouth in the morning.Authorizing Provider: JENI CARPENTER * Telephone Encounter - Jeni Carpenter PA-C - 10/10/2024 2:07 PM ESTSigned Prescriptions: Disp Refills buPROPion HCl ER (XL) 150 MG Oral Tablet E*90 Tab*3 Sig: Take 1 Tablet by mouth in the morning.Authorizing Provider: JENI CARPENTER * Telephone Encounter - Peggy De RN - 10/09/2024 12:08 PM EST Pt in need of refill of Bupropion Looks like last order was placed by [facility]. Order pended for your review and signature. Pharmacy is [facility]. is also asking if there is something more he could have for anxiety or if his Escitalopram could be increased? Pt gets very anxious, especially when having to go out for appts and [facility] requesting the bupropion NOT be increased. Please advise. Thank you! documented in this encounter Plan of Treatment Upcoming Encounters Date Type Department Care Team (Late st Contact Info) Description 10/24/2024 8:05 AM EST Laboratory Lab Mobile Phlebotomy [facility] [address] [facility] [place] [address] Mvmg, Gml Mobile Home Draw [address] [facility] [place] [address] 11/07/2024 8:05 AM EST Laboratory Lab Mobile Phlebotomy [facility] [address] [facility], [place] [address] Mvmg, Gml Mobile Home Draw [address] [facility] [place], [place] [address] 11/14/2024 2:30 PM EST Home Visit [facility] [place], [facility] [address] [facility] [place] [address] Peggy De RN 132 [facility] [place] [address] 11/21/2024 8:05 AM EST Laboratory Lab Mobile Phlebotomy [facility] [address] [facility] [place], [place] [address] Mvmg, Gm Mobile Home Draw [facility], [place] [address] 11/21/2024 12:00 PM EST Office Visit Gastroenterology, [facility] [address] [facility] [place] [address] Cisco Buitrago CRNP [address] [facility] [place] [address] 03/12/2025 3:30 PM EDT Home Visit Care at Home [address] [place] [address] Betina Jacob PA-C [address] [place] [address] 03/14/2025 4:00 PM EDT Office Visit Cardiology, [facility] [address] [facility] [place] [address] Dominick Benz DO [address] [facility] [place] [address] 03/18/2025 11:15 AM EDT Office Visit Urology, [facility] [address] [place] [address] Kalpesh Funes MD [address] [place] [address] Health Maintenance Due Date Last Done Comments Diabetic Foot Exam 03/27/2021 03/27/2020, 08/23/2018 Diabetic Eye Exam 11/01/2023 11/01/2022, , 11/01/2022, Additional history exists Albumin/Creatinine Ratio 12/27/2023 023, 03/08/2019, 04/09/2014 HbA1c 11/23/2024 05/23/2024, 03/24, 12/26/2022, Additional history exists CKD PHOS USE SMARTSET 06543 12/07/202411/23, 12/26/2022, 06/21/2021 Adult Wellness Visit 03/06/2025 03/06/2024, 11/02/19 23 GFR 04/10/2025 10/10/2024, 02/2024, 09/12/2024, Additional history exists Depression Screening 08/06/2025 08/06/2024 CKD HGB USE SMARTSET 49805 09/26/202509/26, 09/26/2024, 09/12/2024, Additional history exists DTap/Tdap Vaccines (4 - [...] encounter Medical Devices Implanted Type Area Business Affairs Manager Device Identifier Shelf Expiration Date Model / Serial / Lot Lens Intraoc 22.5 - [id number] - [id number] Implanted:Qty: 1 on 05/22/2018 by Jasbir Maurer MD at OR [facility] Right: Eye [employer]OM[employer] 11/22/2022 [id number] / [id number] / [id number] Lens Intraoc 21.0 - [id number] - [id number] Implanted:Qty: 1 on 06/05/2018 by Jasbir Maurer MD at OR [facility] Left: Eye [employer] LOMB 12/20/2022 [id number] / [id number] / Duraclip 16mm Xlg Repostn - [id number] Implanted:Qty: 1 on 04/12/2024 by Edilberto Lujan MD at OR [facility] FOB[facility] [id number] 12/08/2024 [id number] / / [id number] Duraclip 16mm Xlg Repostn - [id number] Implanted:Qty: 1 on 04/12/2024 by Edilberto Lujan MD at OR [facility] [employer] [id number] 12/08/2024 [id number] / / [id number] Duraclip 16mm Xlg Repostn - [id number] Implanted:Qty: 1 on 04/12/2024 by Edilberto Lujan MD at OR [facility] FOBO [id number] 12/08/2024 [id number] / / [id number] documented as of this encounter Visit Diagnoses [...] ([facility]) Gastro-esophageal reflux disease without esophagitis Esophageal reflux 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[facility]) Primary parkinsonism (HCC) Paralysis agitans Hypertensive 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)- Primary Atrial fibrillation, unspecified type (HCC) Iron deficiency anemia, unspecified iron deficiency anemia type Type 2 diabetes mellitus with stage 3a chronic kidney disease, without long-term current use of insulin ([facility]) Hypertensive 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)- Primary Iron deficiency anemia, unspecified iron deficiency anemia type Wandering atrial pacemaker Other specified cardiac dysrhythmias Primary parkinsonism (HCC) Paralysis agitans 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] mitral valve regurgitation Coronary artery disease involving redding coronary artery of redding heart without angina pectoris Paroxysmal atrial fibrillation [...] mitral valve regurgitation Coronary artery disease involving redding coronary artery of redding heart without angina pectoris Stage 3b chronic [...] infection Acute apical periodontitis of pulpal origin FABIANO (generalized anxiety disorder)- Primary Generalized anxiety disorder documented in this encounter Advance Directives * [...] Agents on File Name Relationship Healthcare Agent [facility] p Communication Ashley Jose Spouse Health Care Power of Attor mayela Care Teams Roads Supervisor Relationship Specialty Start Date End Date Michael Hinton MD [address] [place] [address] PCP - General Family Medicine 08/07/17 documented as of this encounter
--- OUTSIDE RECORDS SUMMARY | 2025-03-05 02:26 | External Medical Summary ---
Author Name Unknown Address Unknown Organization K0G:LABORATORY [facility] 57[address] - [address] [place] [address] Laboratory Report Ordering Provider Test Date Status GUERRERO CHAUHAN 10/10/2024 10:44:00 Final Observation Date Value Abnormality Reference (Units ) Status BUN 10/10/2024 10:44:00 28 Above high normal 6-20 (mg/dL) Final Creatinine 10/10/2024 10:44:00 1.3 Above high normal 0.6-1.2 (mg/dL) Final Glomerular filtration rate/1.73 sq M.predicted [Volume Rate/Area] in Serum, Plasma or Blood by Creatinine-based formula (CKD-EPI) 10/10/2024 10:44:00 55 Below low normal >=60 (mL/min) Final eGFR is calculated based on the CKD-EPI 2020 equation. Sodium 10/10/2024 10:44:00 140 135-146 (m mol/L) Final Potassium 10/10/2024 10:44:00 4.4 3.5-5.1 (m mol/L) Final Cl 10/10/2024 10:44:00 101 98-107 (mm ol/L) Final CO2 10/10/2024 10:44:00 28 22-32 (mmo l/L) Final Anion gap 10/10/2024 10:44:00 11 7-15 (mmol /L) Final Glucose 10/10/2024 10:44:00 187 Above high normal 70 -120 (mg/dL) Final Calcium 10/10/2024 10:44:00 9.2 8.4-10.2 ( mg/dL) Final Performing Location LABORATORY [facility] 57[address] 0 - [address] [place] [address]
--- OUTSIDE RECORDS SUMMARY | 2025-03-05 02:26 | External Medical Summary ---
Author Name Unknown Address Unknown Organization K01:LABORATORY [facility] - [address] [place] [address] [place] [address] Laboratory Report Ordering Provider Test Date Status GUERRERO CHAUHAN 10/10/2024 10:44:00 Final Observation Date Value Abnormality Reference (Units ) Status Ferritin 10/10/2024 10:44:00 239 30-400 (ng /mL) Final Performing Location [facility]ORY [facility] - [address] [place] [place] [address]
--- OUTSIDE RECORDS SUMMARY | 2025-03-05 02:26 | External Medical Summary ---
Author Name Unknown Address Unknown Organization K01:LABORATORY [facility] - [address] [facility] [address] Laboratory Report Ordering Provider Test Date Status ALIZA ABARCA 10/10/2024 10:44:00 Final Observation Date Value Abnormality Reference (Units ) Status SYNC LEUKOCYTES IN BLOOD BY AUTOMATED COUNT 10/10/2024 10:44:00 4.43 4.00-10.80 (K/uL) Final Segs 10/10/2024 10:44:00 74.4 40.0-75.0 (%) Final Lymphs % 10/10/2024 10:44:00 15.6 Below low normal 18.0-42.0 (%) Final Monos 10/10/2024 10:44:00 8.6 1.0-11.0 (%) Final Eosinophils 10/10/2024 10:44:00 0.5 0.0-6.0 (%) Final Basos 10/10/2024 10:44:00 0.2 0.0-2.0 (%) Final Immature Granulocyte, Percent 10/10/2024 10:44:00 0.7 0.0-2.0 (%) Final Absolute Segs 10/10/2024 10:44:00 3.30 1.80-7.70 (K/uL) Final Lymphs, absolute 10/10/2024 10:44:00 0.69 Below low normal 1.00-4.80 (K/ul) Final Monos, Abs 10/10/2024 10:44:00 0.38 0.00-1.10 (K/uL) Final Eos, Abs 10/10/2024 10:44:00 0.02 0.00-0.70 (K/uL) Final Basos, Abs 10/10/2024 10:44:00 0.01 0.00-0.20 (K/uL) Final Immature Granulocytes, Number 10/10/2024 10:44:00 0.03 0.00-0.20 (K/uL) Final Performing Location LABORATORY [facility] [place] - [address] [facility] [address]
--- OUTSIDE RECORDS SUMMARY | 2025-03-05 02:26 | External Medical Summary | Summary of Care ---
Author Name Unknown Organization [facility] Address [address] [place] [address] Phone [phone] Care Team Providers Care Utility Engineer Name Role Phone Michael Hinton MD Primary Care Provider [phone] Encounter Details Date Type Department Care Team (Late st Contact Info) Description 10/09/2024 12:00 PM EST [facility] [place] [address] Peggy De, RN [address] [place] [address] Allergies Active Allergy Reactions Criticality Noted Date Comments Fabiano Inhibitors Cough 06/09/2017 Carbidopa W-Levodopa 03/17/2021 Constipation Nsaids Rash 05/17/2018 Contraindicated per forestry faculty member documented as of this encounter (statuses as of 10/09/2024) Medications Glucose Blood (ONETOUCH VERIO) STRPIndications: Type [...] failure managing provider. 1 Each 3 Active buPROPion HCl ER (XL) 150 MG Oral Tablet Extended Release 24 Hour (Wellbutrin XL) Take 1 Tablet by mouth in the morning. 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,Stage 3b chronic kidney [...] 3 10/09/2024 11:54 AM EST 5 Active documented as of this encounter (statuses as of 10/09/2024) Active Problems Problem Noted Date Diagnosed Date [...] Plan (08/08/2024 3:17 PM EDT): Follows with [facility] hematology Routine labs monitored by hem/onc Labs pending today Iron infusion 08/02 Blood transfusion 08/05 Assessment & Plan (07/15/2024 6:05 PM EDT): Follows with [facility] hematology Routine labs monitored by hem/onc Update CBC next week Assessment & Plan (03/13/2024 11:24 AM EDT): Follows with [facility] hematology Routine labs monitored by hem/onc Update CBC tomorrow PRBC transfusions 01/2024, 02/2024 Assessment & Plan (10/17/2023 9:43 AM EST): Followed closely by [facility] hematology. No identified cause of HUNTER. Weekly labs monitored by hem/onc. 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 Not on file Not on fi le Not on file Not on file Not on file Not on file documented as of this encounter Last Filed Vital Signs Vital Sign Reading Time Taken Comments Blood Pressure 170/70 10/09/2024 11:53 AM EST Pulse 82 10/09/2024 11:53 AM EST Temperature 36.1 °C (96.9 °F) 10/09/2024 11:[address] Respiratory Rate 18 10/09/2024 11:53 AM EST Oxygen Saturation 98% 10/09/2024 11:53 AM EST Inhaled Oxygen Concentration - - Weight - - Height - - Body Mass Index - - documented in this encounter Progress Notes * Peggy De, RN - 10/09/2024 11:49 AM EST Current Concerns: Pt seen for return RNCM visit Has been going to wound clinic and also had appt with vascular surgery regarding ongoing issues with LE edema and wounds In process for getting compression pumps for LE's Edema has improved with compression wraps Continues to have [facility] Had wound clinic appt this am and goes back next Pt saw cardiology yesterday Pt and reports they are very pleased that he received a good report yesterday. Continues on torsemide and spironolactone daily Weight have been stable via CHM scale Continues to have issues with loose stools has been in contact with GI and states she is going to be increasing the colestipol to 2 tabs twice a day BP elevated at this time reports it was high at wound clinic appt also this am She reports he did not have his morning meds yet d/t being out at appt Meds reviewed - out of wellbutrin - TE sent for refill also reports that she feels his anxiety has been worsening, especially when going out for appts and having so many medical needs. She is asking if his escitalopram could be increased or other recommendations TE sent to provider Physical Exam: Physical Exam Constitutional: General: He [...] is alert. Mental status is at baseline. He is disoriented. Review of Systems: Review of Systems Constitutional: Negative. HENT: Negative. Eyes: Negative. Respiratory: Positive for shortness of breath (MUSTAFA - at baseline). Cardiovascular: Positive for leg swelling. Gastrointestinal: Positive for diarrhea. Genitourinary: Negative. Musculoskeletal: Positive for arthralgias and gait problem. Skin: Positive for wound (LE wraps in place). Psychiatric/Behavioral: Positive for confusion (mild, at baseline). Care Plan Goal Progress: Patient will maintain optimal mobility & activity level. (Progressing) Start: 07/27/24 Expected End: 09/19/24 Patient will achieve & maintain optimal fluid balance. (Progressing) Start: 07/27/24 Expected End: 09/19/24 Patient will have improved cardiac output. (Progressing) Start: 07/27/24 Expected End: 09/19/24 Patient will achieve & maintain effective breathing pattern. (Progressing) Start: 07/27/24 Expected End: 09/19/24 Orders Placed: No orders of the defined types were placed in this encounter. Medications Given: Care Gaps: Care Gaps Care gaps closed this contact: Education;Medications;Plan of Care (POC) (10/09/24 121) Type of education: Clinical/disease (10/09/241213) Type of medication care gap: Medication optimization;Medication adherence (10/09/241213) Type of plan of care (POC) care gap: Adjustment of plan of care (POC) and/or Integrated Care Plan (ICP);Education and review of exacerbation plan (10/09/241213) documented in this encounter Plan of Treatment Upcoming Encounters Date Type Department Care Team (Late st Contact Info) Description 11/14/2024 2:30 PM EST Home Visit [facility] [address] [place] [address] Peggy De RN [address] [place] [address] 11/21/2024 12:00 PM EST Office Visit Gastroenterology, [facility] [address] [place] [place] [address] [address] Cisco Buitrago CRNP [address] [place] [address] 03/12/2025 3:30 PM EDT Home Visit [facility] at Home [address] [place] [address] Betina Jacob PA-C [address] [place] [address] 03/14/2025 4:00 PM EDT Office Visit Cardiology, [facility] [place] [address] Dominick Benz DO [address] [place] [address] 03/18/2025 11:15 AM EDT Office Visit Urology, [facility] [address] [place] [address] Kalpesh Funes MD [address] [place] [address] Health Maintenance Due Date Last Done Comments Diabetic Foot Exam 03/27/2021 03/27/2020, 08/23/2018 Diabetic Eye Exam 11/01/2023 11/01/2022, , 11/01/2022, Additional history exists Albumin/Creatinine Ratio 12/27/2023 023, 03/08/2019, 04/09/2014 HbA1c 11/23/2024 05/23/2024, 03/24, 12/26/2022, Additional history exists CKD PHOS USE SMARTSET 33110 12/07/202411/23, 12/26/2022, 06/21/2021 Adult Wellness Visit 03/06/2025 03/06/2024, 11/02/19 23 GFR 03/27/2025 09/26/2024, 08/24, 08/26/2024, Additional history exists Depression Screening 08/06/2025 08/06/2024 CKD HGB USE SMARTSET 77512 09/26/202509/26, 09/26/2024, 09/12/2024, Additional history exists DTap/Tdap [...] this encounter Medical Devices Implanted Type Area Wildlife Control Agent Device Identifier Shelf Expiration Date Model / Serial / Lot Lens Intraoc 22.5 - [id number] - [id number] Implanted:Qty: 1 on 05/22/2018 by Jasbir Maurer MD at OR [facility] Right: Eye [employer]USCH [employer] LOMB 11/22/2022 [id number] / [id number] / [id number] Lens Intraoc 21.0 - [id number] - [id number] Implanted:Qty: 1 on 06/05/2018 by Jasbir Muarer MD at OR [facility] Left: Eye BAUSCH & LOMB 12/20/2022 [id number] / [id number] / Duraclip 16mm Xlg Repostn - [id number] Implanted:Qty: 1 on 04/12/2024 by Edilberto Lujan MD at OR [facility] [employer]ACH[employer] [id number] 12/08/2024 [id number] / / [id number] Duraclip 16mm Xlg Repostn - [id number] Implanted:Qty: 1 on 04/12/2024 by Edilberto Lujan MD at OR [facility] [employer] NACH[employer] [id number] 12/08/2024 [id number] / / [id number] Duraclip 16mm Xlg Repostn - [id number] Implanted:Qty: 1 on 04/12/2024 by Edilberto Lujan MD at OR [facility] [employer] [facility] [id number] 12/08/2024 [id number] / / [id number] documented as of this encounter Advance Directives [...] Care Power of Attor mayela Care Teams Utility Engineer Relationship Specialty Start Date End Date Michael Hinton MD [address] [facility] [place] [address] PCP - General Family Medicine 08/07/17 documented as of this encounter
--- OUTSIDE RECORDS SUMMARY | 2025-03-05 02:26 | External Medical Summary | Summary of Care ---
Author Name Unknown Organization [facility] Address [address] [place] [address] Phone [phone] Care Team Providers Care Logistics Planner Name Role Phone Michael Hinton MD Primary Care Provider [phone] Encounter Details Date Type Department Care Team (Late st Contact Info) Description 10/10/2024 Orders Only Lab Mobile Phlebotomy [facility] [address] [place] [address] Odessa Chun PA-C [address] [place] [address] Anemia due to chronic blood loss* Allergies Active Allergy Reactions Criticality Noted Date Comments Fabiano Inhibitors Cough 06/09/2017 Carbidopa W-Levodopa 03/17/2021 Constipation Nsaids Rash 05/17/2018 Contraindicated per transfer operator documented as of this encounter (statuses [...] mitral valve regurgitation,Co ronary artery disease involving platinum coronary artery 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 angina pectoris,Stage 3b chronic kidney [...] -continue metoprolol succinate Not on AC d/t HUNETR and concern for bleeding Assessment & Plan [...] "My pants feel tight") Medication Regimen: Beta Sheldno Therapy: Metoprolol Succinate (ER) FABIANO Inhibitor/ARB Therapy: [...] Beta Sheldon Therapy: Metoprolol Succinate (ER) o FABIAON Inhibitor/ARB Therapy: No FABIANO/ARB/ARNI secondary to: [...] have staff contact office to notify of [facility] recommendation, possibly consider d.c maxzide and [...] Plan (08/08/2024 3:17 PM EDT): Follows with [facility] hematology Routine labs monitored by hem/onc Labs pending today Iron infusion 08/02 Blood transfusion 08/05 Assessment & Plan (07/15/2024 6:05 PM EDT): Follows with [facility] hematology Routine labs monitored by hem/onc Update CBC next week Assessment & Plan (03/13/2024 11:24 AM EDT): Follows with [facility] hematology Routine labs monitored by hem/onc Update CBC tomorrow PRBC transfusions 01/2024, 02/2024 Assessment & Plan (10/17/2023 9:43 AM EST): Followed closely by [facility] hematology. No identified cause of HUNTER. Weekly labs monitored by hem/onc. Most recent hgb 8.7 Assessment & Plan (05/02/2023 1:04 PM EDT): Followed closely by [facility] hematology. No identified cause of HUNTER. Weekly labs monitored by hem/onc. Most recent hgb stable 10.5. Assessment & Plan (03/28/2023 1:27 PM EDT): Received blood transfusion 03/24 -will follow-up CBC on 03/30 -continue ferrous sulfate. Dose once daily. Med list updated Assessment & Plan (10/19/2022 1:20 PM EST): Followed by hem/onc. Had severe anemia in Aug with drop to 4.3. [facility] now monitoring counts weekly. 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 Not on file Not on fi le Not on file Not on file Not on file Not on file documented as of this encounter Plan of Treatment Upcoming Encounters Date Type Department Care Team (Late st Contact Info) Description 10/24/2024 8:05 AM EST Laboratory Lab Mobile Phlebotomy [facility] [address] [place] [address] [facility] [address] [place] [address] 11/07/2024 8:05 AM EST Laboratory Lab Mobile Phlebotomy [facility] [address] [place] [address] [address] [facility] [address] [facility] [place] [address] 11/14/2024 2:30 PM EST [facility] Visit [facility], [facility] [address] [place] [address] Peggy De, RN [address] [place] [address] 11/21/2024 8:05 AM EST Laboratory Lab Mobile Phlebotomy [facility] [address] [facility] [place] [address] [facility] Draw [address] [facility] [place] [address] 11/21/2024 12:00 PM EST Office Visit Gastroenterology, [facility] 132 [facility] [place] [address] Cisco Buitrago CRNP 132 [facility] [place] [address] 03/12/2025 3:30 PM EDT Home Visit [facility] at Home [address] [place] [address] Betina Jacob PA-C [address] [place] [address] 03/14/2025 4:00 PM EDT Office Visit Cardiology, [facility] 132 [facility] [place] [address] Dominick Benz DO [address] [place] [address] 03/18/2025 11:15 AM EDT Office Visit Urology, [facility] [address] [place] [address] Kalpesh Funes MD [address] [place] [address] Scheduled Orders Name Type Priority Associated Diagnoses Orde r Schedule BASIC METABOLIC PANEL Lab Routine Anemia due to chronic blood loss 4 Occurrences starting 10/10/2024 until 10/10/2025 Health Maintenance Due Date Last Done Comments Diabetic Foot Exam 03/27/2021 03/27/2020, 08/23/2018 Diabetic Eye Exam 11/01/2023 11/01/2022, , 11/01/2022, Additional history exists Albumin/Creatinine Ratio 12/27/2023 023, 03/08/2019, 04/09/2014 HbA1c 11/23/2024 05/23/2024, 03/24, 12/26/2022, Additional history exists CKD PHOS USE SMARTSET 67072 12/07/202411/23, 12/26/2022, 06/21/2021 Adult Wellness Visit 03/06/2025 03/06/2024, 11/02/19 23 GFR 03/27/2025 09/26/2024, 08/24, 08/26/2024, Additional history exists Depression Screening 08/06/2025 08/06/2024 CKD HGB USE SMARTSET 89010 09/26/202509/26, 09/26/2024, 09/12/2024, Additional history exists DTap/Tdap [...] this encounter Medical Devices Implanted Type Area Screen Making Supervisor Device Identifier Shelf Expiration Date Model / Serial / Lot Lens Intraoc 22.5 - [id number] - [id number] Implanted:Qty: 1 on 05/22/2018 by Jasbir Maurer MD at OR [facility] Right: Eye BAUSCH & LOMB 11/22/2022 [id number] / [id number] / [id number] Lens Intraoc 21.0 - [id number] - [id number] Implanted:Qty: 1 on 06/05/2018 by Jasbir Maurer MD at OR [facility] Left: Eye BAUSCH & LOMB 12/20/2022 [id number] / [id number] / Duraclip 16mm Xlg Repostn - [id number] Implanted:Qty: 1 on 04/12/2024 by Edilberto Lujan MD at OR [facility] [employer] NACHO [id number] 12/08/2024 [id number] / / [id number] Duraclip 16mm Xlg Repostn - [id number] Implanted:Qty: 1 on 04/12/2024 by Edilberto Lujan MD at OR [facility] [employer] NACHO [id number] 12/08/2024 [id number] / / [id number] Duraclip 16mm Xlg Repostn - [id number] Implanted:Qty: 1 on 04/12/2024 by Edilberto Lujan MD at OR [facility] [employer] NACHO [id number] 12/08/2024 [id number] / / [id number] documented as of this encounter Visit Diagnoses [...] diabetic peripheral angiopathy without gangrene, unspecified whether buttermilk drier operator insulin use (HCC) Coronary artery disease involving platinum coronary artery 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 angina pectoris Hypertensive heart and [...] mitral valve regurgitation Coronary artery disease involving platinum coronary artery 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
--- OUTSIDE RECORDS SUMMARY | 2025-03-05 02:27 | External Medical Summary | Summary of Care ---
Author Name Unknown Organization [facility] Address [address] [place] [address] Phone [phone] Care Team Providers Care Employment Attorney Name Role Phone Michael Hinton MD Primary Care Provider [phone] Reason for Visit * Reason Comments Follow Up Encounter Details Date Type Department Care Team (Late st Contact Info) Description 10/08/2024 10:30 AM EST Office Visit Cardiology, [facility] [address] [facility] [place] [address] Dominick Benz, [address] [place] [address] Chronic heart failure with preserved ejection fraction (HFpEF) (HCC)*; Paroxysmal atrial fibrillation (HCC); Nonrheumatic mitral valve regurgitation; Iron deficiency anemia due to chronic blood loss Allergies Active Allergy Reactions Criticality Noted Date Comments Fabiano Inhibitors Cough 06/09/2017 Carbidopa W-Levodopa 03/17/2021 Constipation Nsaids Rash 05/17/2018 Contraindicated per lining repairer documented as of this encounter (statuses as of 10/08/2024) Medications Glucose Blood (ONETOUCH VERIO) STRPIndications :Type [...] managing provider. 1 Each 05/02/20 23 Active buPROPion HCl ER (XL) 150 MG Oral Tablet Extended Release 24 Hour (Wellbutrin XL) Take 1 Tablet by mouth in the morning. 90 Tablet 3 3 10:54 AM EST 10/13/20 23 Active Betamethasone Dipropionate 0.05 % External [...] differently: 10 mg Oral Daily(AM), Reported on 10/08/2024 Triamcinolone Acetonide 0.1 % External Ointment (Aristocort) [...] mitral valve regurgitation,C oronary artery disease involving grayling coronary artery of grayling heart without angina pectoris,Stage 3b chronic kidney [...] before October 28, 2024. 90 Tablet 3 10/28/19 25 Active metFORMIN HCl ER 500 MG Oral Tablet Extended Release 24 Hour (Glucophage XR) Take 1 Tablet by mouth daily. 100 Tablet 3 3 8:51 AM EDT 06/23/20 23 2023 Discontinued Empagliflozin 10 MG Oral Tablet (Jardiance) Take 1 Tablet by mouth in the morning. 90 Tablet 3 10/08/20 24 2023 Discontinued(M edication/Dose Changed) documented as of this encounter (statuses as of 10/08/2024) Active Problems Problem Noted Date Diagnosed Date [...] have staff contact office to notify of [facility] recommendation, possibly consider d.c maxzide [...] anemia in Aug with drop to 4.3. [facility] now monitoring counts weekly. 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 Have a repeat basic metabolic panel performed after you have been on the medication for 7 to 10 days. documented in this encounter Progress Notes * Dominick Benz DO - 10/08/2024 10:50 AM EST 10/08/2024 [...] spouse, Ashley. The patient has been attending [facility] wound care clinic and reports improvement in [...] a right coronary artery aneurysm), [address] [facility]. 2.Chronic diastolic CHF, NYHA class 3 -lower extremity venous stasis wounds, following with [facility] 3.Valvular heart disease with at least moderate mitral insufficiency and moderate aortic insufficiency 4.Paroxysmal atrial fibrillation-off anticoagulation due to bleeding concern 5.Prostatic hypertrophy 6.CKD 7.Parkinson's disease with related gait instability and dementia- follows with [facility] 8.Significant anemia- follows with [facility] heme, gets IV iron transfusions Extensive ROS: All systems reviewed & are unremarkable except as noted in HPI & below Cardiovascular (chest pain/palpitations/fluttering/diaphoresis/dyspnea on exertion/paroxysmally nocturnal dyspnea):Negative Review of patient's allergies indicates: Allergen Reactions Fabiano Inhibitors Cough Carbidopa W-Levodopa Constipation Nsaids Rash Contraindicated per lining repairer Current Outpatient Medications Medication Sig Dispense Refill [...] as documented. Dominick Benz DO Cardiology, [address] [address] Text in this note was generated using an [employer] documentation service. I discussed the use of [...] table with personnel. documented in this encounter Plan of Treatment Upcoming Encounters Date Type Department Care Team (Late st Contact Info) Description 10/09/2024 12:00 PM EST Home Visit [facility] [address] [place] [address] Peggy De RN [address] [facility] [place] [address] 11/21/2024 12:00 PM EST Office Visit Gastroenterology, [facility] [address] [facility] [place] [address] Cisco Buitrago CRNP [address] [place] [address] 03/12/2025 3:30 PM EDT Home Visit Care at Home [address] [place] [address] Betina Jacob PA-C [address] [place] [address] 03/14/2025 4:00 PM EDT Office Visit Cardiology, [facility] [address] [facility] [place] [address] Dominick Benz, [address] [place] [address] 03/18/2025 11:15 AM EDT Office Visit Urology, [facility] [address] [facility] [place] [address] Kalpesh Funes MD [address] [place] [address] Scheduled Orders Name Type Priority Associated Diagnoses Orde r Schedule BASIC METABOLIC PANEL Lab Routine Chronic heart failure with preserved ejection fraction (HFpEF) ([facility]) Expected: 10/31/2024, Expires: 10/08/2025 Health Maintenance Due Date Last Done Comments Diabetic Foot Exam 03/27/2021 03/27/2020, 08/23/2018 Diabetic Eye Exam 11/01/2023 11/01/2022, , 11/01/2022, Additional history exists Albumin/Creatinine Ratio 12/27/2023 023, 03/08/2019, 04/09/2014 HbA1c 11/23/2024 05/23/2024, 03/24, 12/26/2022, Additional history exists CKD PHOS USE SMARTSET 49613 12/07/202411/23, 12/26/2022, 06/21/2021 Adult Wellness Visit 03/06/2025 03/06/2024, 11/02/19 23 GFR 03/27/2025 09/26/2024, 08/24, 08/26/2024, Additional history exists Depression Screening 08/06/2025 08/06/2024 CKD HGB USE SMARTSET 83738 09/26/202509/26, 09/26/2024, 09/12/2024, Additional history exists DTap/Tdap [...] this encounter Medical Devices Implanted Type Area Site Safety Coordinator Device Identifier Shelf Expiration Date Model / Serial / Lot Lens Intraoc 22.5 - [id number] - [id number] Implanted:Qty: 1 on 05/22/2018 by Jasbir Maurer MD at OR [facility] Right: Eye [employer]USCH [employer] LOMB 11/22/2022 [id number] / [id number] / [id number] Lens Intraoc 21.0 - [id number] - [id number] Implanted:Qty: 1 on 06/05/2018 by Jasbir Maurer MD at OR [facility] Left: Eye [employer]CH [employer] LOMB 12/20/2022 [id number] / [id number] / Duraclip 16mm Xlg Repostn - [id number] Implanted:Qty: 1 on 04/12/2024 by Edilberto Lujan MD at OR [facility] [place] [id number] 12/08/2024 [id number] / / [id number] Duraclip 16mm Xlg Repostn - [id number] Implanted:Qty: 1 on 04/12/2024 by Edilberto Lujan MD at OR [facility] [place] [id number] 12/08/2024 [id number] / / [id number] Duraclip 16mm Xlg Repostn - [id number] Implanted:Qty: 1 on 04/12/2024 by Edilberto Lujan MD at OR [facility] [place] [id number] 12/08/2024 [id number] / / [id number] documented as of this encounter Visit Diagnoses [...] gangrene, unspecified whether nursing home insulin use (HCC) Coronary artery disease involving grayling coronary artery of grayling heart without angina pectoris Hypertensive heart and [...] mitral valve regurgitation Coronary artery disease involving grayling coronary artery of grayling heart without angina pectoris Paroxysmal atrial fibrillation [...] mitral valve regurgitation Coronary artery disease involving grayling coronary artery of grayling heart without angina pectoris Stage 3b chronic [...] Care Power of Attor mayela Care Teams Employment Attorney Relationship Specialty Start Date End Date Michael Hinton MD [address] [facility] [place] [address] PCP - General Family Medicine 08/07/17 documented as of this encounter
[2025-03-05 07:26] LABS: Hematocrit (blood only) 34.3 % (42.0-52.0); Hemoglobin 11.4 g/dl (14.0-18.0); Mean Corpuscular Hemoglobin 36.1 pg (25.0-34.0); Mean Corpuscular Hgb Conc 33.2 g/dL (32.0-36.0); Mean Corpuscular Volume 108.5 fL (80.0-100.0); Mean Platelet Volume 9.9 fL (9.4-12.4); Platelet Count 115 K/uL (130-400); RDW Standard Deviation 56.1 fL (36.4-46.3); Red Blood Count 3.16 M/uL (4.70-6.10); White Blood Count 5.86 K/ul (4.8-10.8)
[2025-03-05 08:09] LABS: Albumin Globulin Ratio 1.5 (0.9-2); Albumin Level 3.6 gm/dl (3.4-5.0); BUN Creatinine Ratio 21.1 (10-20); Bilirubin,Total 0.7 mg/dl (0.2-1.0); Calcium 9.1 mg/dl (8.6-10.3); Creatinine Clr Calc Pharmacy 29.3 ml/min; Globulin 2.4 gm/dl (2.5-4.0); Magnesium 2.3 mg/dl (1.7-2.4)
[2025-03-05 08:19] LABS: Folate (Folic Acid),Ser orPlas 15.3 ng/ml (>5.38)
[2025-03-05] MEDS: buPROPion XL 150 MG TABCR PO SCH (08:39)
[2025-03-05] MEDS: allopurinoL 300 MG TAB PO SCH (08:39)
[2025-03-05] MEDS: DONEPEZIL HCL 10 MG TAB PO SCH (08:39)
[2025-03-05] MEDS: ESCITALOPRAM OXALATE 20 MG TAB PO SCH (08:39)
[2025-03-05] MEDS: FINASTERIDE 5 MG TAB PO SCH (08:40)
[2025-03-05] MEDS: PANTOprazole 40 MG/10 ML SYR IV SCH (08:40)
[2025-03-05] MEDS: AMANTADINE HCL 100 MG CAPSULE PO SCH (08:40)
[2025-03-05] MEDS: SACCHAROMYCES BOULARDII 250 MG CAP PO SCH (08:41)
[2025-03-05] MEDS: METOPROLOL SUCC 50MG EXT REL TAB PO SCH (08:41)
[2025-03-05] MEDS: ATORVASTATIN 40 MG TAB PO SCH (08:41)
[2025-03-05 08:53] LABS: Estimated Average Glucose 154 mg/dl
--- NOTE | 2025-03-05 10:45 | Gastrointestinal Consultation ---
Date of Consultation March 05, 2025 Assessment & Plan (1) Occult blood in stools: Patient denies seeing any blood in the stools or melena. 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 Hgb reportedly was better than baseline on admission. It did drop somewhat but seems to be stable. Perianal abscess noted to have been bleeding by nursing. - follow hgb/hct. transfuse as needed. - continue with protonix 40mg BID. - patient was not cooperative during my encounter with him and became frustrated saying he did not want anything done. Will reassess later in the day when we make afternoon rounds. - okay to advance diet as hgb appears stable. no need for emergent scope at this time. Supervising Physician Co-Signing Physician Notes Patient admitted with weakness and fall. History of gastrointestinal bleeding. However his hemoglobin is better than typically is. 11.4. He has some macrocytosis and low platelets B12 and folate are normal. B12 and folate are normal. We are consulted for heme positive stool. Would note patient's had a nosebleed for the last few days which certainly could result in some heme positivity. He also has what looks like a draining rectal abscess and yeast infection over the buttocks. Both of these could account for heme positivity at this point no plan for endoscopic intervention. CT does suggest potential some thickening of the duodenum however this was wit hout contrast wall thickening without contrast is potentially unreliable due to nondistention would probably just add a PPI. Will follow from a distance. 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 difficile diarrhea, BPH, primary osteoarthritis of both knees and gouty arthropathy who presented to the ED on 03/04/25 via EMS for evaluation of generalized weakness and blood in his stool. stools tested heme positive, but hgb upon admission was 12.8 which is reportedly improved from baseline. Since admission, hgb did drop to 11.1 but has since improved to 11.4. He denies any black stools or brbpr in the stools. I spoke with nursing who told me that there was a perianal abscess found by wound care which was bleeding. Patient is extremely hard of hearing and became frustrated during our conversation about endoscopic procedures and tells me that he did not wany anything done and that he "just want[s] to eat". Scope history obtained through chart and is as follows: Upper Device-Assisted Enteroscopy without [id number]: - Three angioectasias in the ileum. Treated with argon plasma coagulation (APC). Clips (MR conditional) were placed. VCE 2023: bleeding AVM is small bowel EGD 2023: - Normal esophagus. - Small hiatal hernia. - Normal examined duodenum. - The examined portion of the jejunum was normal. - No specimens collected. EGD 2022: - Z-line regular, 38 cm from the incisors. - Normal esophagus. - Gastritis. Biopsied. There was a dusky appearance to the stomach in areas of the body, fundus, and cardia concerning for some ischemia. - Normal duodenal bulb, second portion of the duodenum and third portion of the duodenum. Colonoscopy 2022: - Hemorrhoids found on perianal exam. - Diverticulosis in the sigmoid colon. - Internal hemorrhoids. - The examined portion of the ileum was normal. - No specimens collected. Allergies Allergy/AdvReac Type Severity Reaction Status Date / Time NSAIDS (Non-Steroidal Allergy Intermediate Rash Verified 11/18/24 08:04 Anti-Inflamma YONATAN Inhibitors AdvReac Intermediate Cough Verified 11/14/24 15:33 carbidopa AdvReac Intermediate constipatio Verified 11/14/24 15:33 n levodopa AdvReac Intermediate constipatio Verified 11/14/24 15:33 n Home Medications Medication Instructions Recorded Confirmed Type amantadine HCl 100 mg capsule 100 mg PO QAM 05/22/20 03/04/25 History dutasteride 0.5 mg capsule 0.5 mg PO QAM 01/24/23 03/04/25 History atorvastatin 40 mg tablet 40 mg PO QAM 01/08/24 03/04/25 History allopurinol 300 mg tablet 300 mg PO QAM 07/25/24 03/04/25 History escitalopram oxalate 20 mg tablet 20 mg PO QAM 08/15/24 03/04/25 History torsemide 20 mg tablet 40 mg PO QAM 08/15/24 03/04/25 History spironolactone 25 mg tablet 12.5 mg PO QAM 10/02/24 03/04/25 History empagliflozin 10 mg tablet 10 mg PO QAM 11/05/24 03/04/25 History (Jardiance) Magic Swizzle 15 ml PO BID 03/04/25 03/04/25 History Saccharomyces boulardii 250 mg 250 mg PO DAILY 03/04/25 03/04/25 History capsule bupropion HCl 150 mg 24 hr tablet, 150 mg PO QAM 03/04/25 03/04/25 History extended release donepezil 10 mg disintegrating 10 mg PO QAM 03/04/25 03/04/25 History tablet metoprolol succinate 50 mg 50 mg PO QAM 03/04/25 03/04/25 History tablet,extended release 24 hr pramoxine 1 % topical cream 1 applic topical UD 03/04/25 03/04/25 History (CeraVe Itch Relief) Patient History Medical History GI bleed 09/2023 Anemia 09/2023 inpt at [facility] Atrial fibrillation f/u Dr. Benz, [facility] Eliis on hold due to anemia History of blood transfusion 10/06/23- was admitted at [facility], low blood count, reason for upcoming procedure 03/24/23, "he's bleeding somewhere, has a low blood count, not sure where losing it from"; f/u [facility]. 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 History of pneumonia end of 01/2023, found in lt. 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 Parkinson's>no current issues Diastolic dysfunction Lower extremity edema HUNTER (iron deficiency anemia) Ambulatory dysfunction Seasonal allergies Thoracic aortic aneurysm sx in 2011, at [facility] Lumbar spondylosis MUSTAFA (dyspnea on exertion) inh prn Coronary aneurysm (2011) Per cardio records CAD with CABG in 2011 (CHILDS to LAD and exclusion of RCA aneurysm Adverse reaction to anesthetic agent 2011 w/hip replacement>hallucinated for 3 days Orthostatic hypotension (07/2019) Peripheral arterial disease Recurrent cellulitis of lower extremity reason for daily cephalexin Anxiety CAD (coronary artery disease) history of CABG (CHILDS to LAD and exclusion of a right coronary artery aneurysm), 2011 at [facility]. Surgical History History of carpal tunnel release of both wrists History of esophagogastroduodenoscopy (EGD) Hx of colonoscopy Hx of bilateral cataract extraction History of neck surgery [facility] w/Dr. 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 foot H/O eye surgery numerous when he was young Family History Unknown No problems noted. Father Hypertension, Onset Age: 40 at 40 Mother Hypertension COPD (chronic obstructive pulmonary disease) Diabetes Brother Allergies Asthma Grandmother Diabetes Denies family history of Prostate cancer Hearing loss No family history of adverse response to anesthesia No family history of bleeding disorder Heart disease Cancer Stroke Social History Smoking Status: Never smoker Second Hand Exposure: No; Do You Dip or Chew Tobacco: No; Hx Alcohol Use: No Hx Substance Use: No Preferred Language: Luxembourgish Communication Ability: Effective Communication Ability Comment: Hard of hearing Communication Tools: Facial Expression, Physical Gestures and Lip Movement/Reading Visual Impairment: No Limitations Hearing Ability: Use of Hearing Aid Other Sales Support Worker Required: No Beliefs That Will Affect Care: None marital status: Current Living Situation: Spouse Current Living Situation Comment: Lives at home with spouse current occupational status: retired How many Children do You have: 2 Other Information That Helps Us Care for You: No Feels Safe at Home: Yes Safety Concerns: Feels Safe At This Time Diet: diabetic and low salt caffeine: Yes during the past year weight has: remained stable Assistive Devices: Oxygen - at Night and Walker Review of Systems Review of Systems: unobtainable. Physical Exam ENMT: hard of hearing Respiratory: normal respiratory effort Psychiatric: alert Results & Data Vital Signs (Past 12 Hours) Vital Signs Temp Pulse Pulse Pulse Resp BP Pulse Ox 03/05/25 09:43 03/05/25 09:43 88 03/05/25 07:48 97.5 F L 77 20 129/85 99 03/05/25 04:15 97.9 F 89 18 111/70 94 O2 Del Method O2 Flow Rate 03/05/25 09:43 Nasal Cannula 2 03/05/25 09:43 03/05/25 07:48 Room Air 03/05/25 04:15 Room Air Coding Level of Care Code 15781 INT INP/OBS CARE 2/55MIN Diagnoses Occult blood in stools R19.5
--- NOTE | 2025-03-05 12:51 | Hospitalist Progress Note ---
Date of Service March 05, 2025 Assessment & Plan (1) Acute anterior epistaxis: Plan Mr. 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 difficile diarrhea, BPH, primary osteoarthritis of both knees and gouty arthropathy who presented to the ED via EMS for evaluation of generalized weakness and blood in his stool. GI Bleed Labs personally reviewed. FOBT positive; However, Hgb stable at 12.8 which is improved from his baseline Hgb of 9-12. CTAP with wall thickening of the duodenum and proximal jejunum (+/- inflammatory). Known history of small bowel AVMs with history of argon plasma coagulation and clip placement. Possible upper GI bleed. No indication to transfuse at this time given Hgb>8. Start IV PPI BID. GI consult for possible EGD B12 and folate levels PT/OT Epistaxis Afrin protocol Perirectal Cellulitis CT abd/pelvis unremarkable except for noted "...Wall thickening of the duodenum and proximal jejunum favors a nonspecific infectious or inflammatory process..." Wound care consulted, appreciate recs Started on empiric Augmentin with probiotic Continue to monitor Acute kidney injury superimposed on stage 3b chronic kidney disease Noted to have an DORYS with Cr of 2.21 on admission. Baseline Cr around 1.6-2.0 per chart review. Suspect due to recent decline in oral intake ISO generalized weakness. Hold off on additional IVF for now due to history of HFpEF and risk of volume overload Hold CERTIFIED FLEX ENDOSCOPE REPROCESSOR diuretics for now and in setting of GI bleed above Encourage oral intake Avoid nephrotoxic agents when able Monitor renal function closely with daily labs and renally dose medications when able. Oral thrush Noted on exam Possibly related to poor oral hygiene generalized weakness Start nystatin swish/swallow and continue to monitor for any improvement Magic Mouthwash PRN for oral pain Parkinson's disease Parkinson's disease with related gait instability and dementia. Follows with neurologist through [facility] in [place], [place]. Reportedly having increased hallucinations per family. Likely related to above. Continue CERTIFIED FLEX ENDOSCOPE REPROCESSOR donepezil and amantadine. Delirium precautions. Frequent reorientation, avoid sedating medications Paroxysmal A-fib Follows with Dr. Benz of [facility] cardiology as an outpatient Continue CERTIFIED FLEX ENDOSCOPE REPROCESSOR Toprol XL. Not on anticoagulation due to chronic anemia and bleeding risk ISO underlying small bowel AVMs. (HFpEF) heart failure with preserved ejection fraction Holding CERTIFIED FLEX ENDOSCOPE REPROCESSOR diuretics for now as per above. Follow daily weights. Strict I&Os. Closely monitor for signs/symptoms of volume overload. DM type 2 (diabetes mellitus, type 2) Hgb A1c 8.3% about 9 months ago. Repeat Hgb A1c in the AM. Hold hospice home care coordinator, SSI protocol while inpatient. Monitor BSG checks ACHS. Other Chronic Medical Conditions: CAD with history of CABG x 3 - Continue statin. Anxiety/Depression - Continue CERTIFIED FLEX ENDOSCOPE REPROCESSOR psychiatric medications. COPD - Not signs/symptoms of an acute exacerbation. Continue baseline 2L NC HS (add humification 2/2 recent nose bleed). DVT Prophylaxis: SCDs/TEDs Code Status: FULL CODE PCP: Michael Hinton MD Admission and Anticipated Discharge Date Admission Date: March 04, 2025 Subjective Pt was seen in the AM Very sleepy on exam He stated he has been having BMs and felt like he could have another at the time of exam Per nursing later with slow nose bleed Review of Systems Review of Systems: All systems reviewed & are unremarkable except as noted in Subjective Physical Exam Physical Exam: General: sleepy. No acute distress HEENT: NC/AT CV: RRR Resp: Breath sounds clear bilaterally, no increased effort of breathing Abdomen: Soft, nontender Extremities: No edema in lower extremities bilaterally. Results & Data Results & Data Vital Signs (Past 12 Hours) Vital Signs Temp Pulse Pulse Pulse Resp BP Pulse Ox 03/05/25 11:58 36.4 C L 67 18 114/64 94 03/05/25 09:43 03/05/25 09:43 88 03/05/25 07:48 36.4 C L 77 20 129/85 99 03/05/25 04:15 36.6 C 89 18 111/70 94 O2 Del Method O2 Flow Rate 03/05/25 11:58 Room Air 03/05/25 09:43 Nasal Cannula 2 03/05/25 09:43 03/05/25 07:48 Room Air 03/05/25 04:15 Room Air
[2025-03-05] MEDS: OXYMETAZOLINE 0.05% 30 ML BTL ONE (14:05)
[2025-03-06 07:30] LABS: Hematocrit (blood only) 32.4 % (42.0-52.0); Hemoglobin 11.2 g/dl (14.0-18.0); Mean Corpuscular Hemoglobin 36.7 pg (25.0-34.0); Mean Corpuscular Hgb Conc 34.6 g/dL (32.0-36.0); Mean Corpuscular Volume 106.2 fL (80.0-100.0); Mean Platelet Volume 9.6 fL (9.4-12.4); Platelet Count 107 K/uL (130-400); RDW Coefficient of Variation 14.3 % (11.5-14.5); RDW Standard Deviation 55.2 fL (36.4-46.3); Red Blood Count 3.05 M/uL (4.70-6.10)
[2025-03-06] MEDS: TORSEMIDE 20 MG TAB PO SCH (07:43)
[2025-03-06] MEDS: ADVANCED PROBIOTIC 625 MG CAPSULE PO SCH (07:43)
[2025-03-06] MEDS: AMOXICILLIN/CLAVULANATE 875 MG TAB PO SCH (07:43)
[2025-03-06 07:48] LABS: Albumin Globulin Ratio 1.5 (0.9-2); Albumin Level 3.5 gm/dl (3.4-5.0); BUN Creatinine Ratio 18.6 (10-20); Bilirubin,Total 0.8 mg/dl (0.2-1.0); Calcium 9.1 mg/dl (8.6-10.3); Creatinine Clr Calc Pharmacy 29.6 ml/min; Globulin 2.4 gm/dl (2.5-4.0); Magnesium 2.2 mg/dl (1.7-2.4); Potassium 4.2 mmol/L (3.5-5.1); Total Protein 5.9 gm/dl (6.0-8.3)
[2025-03-06 10:57] LABS: Appearance Urine Clear (Clear); Bilirubin Urine Negative (Negative); Blood Urine Negative (Negative); Color Urine Yellow; Glucose Urine UA 2+ (Negative); Ketones Urine Negative (Negative); Leukocyte Esterase Urine Negative (Negative); Nitrite Urine Negative (Negative); Protein Urine Negative (Negative); Specific Gravity Urine 1.008 (1.000-1.030); Urobilinogen Urine Negative (Negative)
--- NOTE | 2025-03-06 13:30 | Hospitalist Progress Note ---
Date of Service March 06, 2025 Assessment & Plan (1) Acute anterior epistaxis: Plan Mr. 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 difficile diarrhea, BPH, primary osteoarthritis of both knees and gouty arthropathy who presented to the ED via EMS for evaluation of generalized weakness and blood in his stool. Pt's family would like to take him home with palliative care services that they have already set up. GI Bleed Labs personally reviewed. FOBT positive; However, Hgb stable at 12.8 which is improved from his baseline Hgb of 9-12. CTAP with wall thickening of the duodenum and proximal jejunum (+/- inflammatory). Known history of small bowel AVMs with history of argon plasma coagulation and clip placement. Possible upper GI bleed. No indication to transfuse at this time given Hgb>8. Start IV PPI BID. GI consult for possible EGD B12 and folate levels PT/OT Epistaxis Afrin protocol Perirectal Cellulitis CT abd/pelvis unremarkable except for noted "...Wall thickening of the duodenum and proximal jejunum favors a nonspecific infectious or inflammatory process..." Wound care consulted, appreciate recs Started on empiric Augmentin with probiotic Continue to monitor Acute kidney injury superimposed on stage 3b chronic kidney disease Noted to have an DORYS with Cr of 2.21 on admission. Baseline Cr around 1.6-2.0 per chart review. Suspect due to recent decline in oral intake ISO generalized weakness. Hold off on additional IVF for now due to history of HFpEF and risk of volume overload Hold [employer] diuretics for now and in setting of GI bleed above Encourage oral intake Avoid nephrotoxic agents when able Monitor renal function closely with daily labs and renally dose medications when able. Oral thrush Noted on exam Possibly related to poor oral hygiene generalized weakness Start nystatin swish/swallow and continue to monitor for any improvement Magic Mouthwash PRN for oral pain Parkinson's disease Parkinson's disease with related gait instability and dementia. Follows with neurologist through [facility] in [place], [place]. Reportedly having increased hallucinations per family. Likely related to above. Continue [employer] donepezil and amantadine. Delirium precautions. Frequent reorientation, avoid sedating medications Paroxysmal A-fib Follows with Dr. Benz of [facility] cardiology as an outpatient Continue [employer] Toprol XL. Not on anticoagulation due to chronic anemia and bleeding risk ISO underlying small bowel AVMs. (HFpEF) heart failure with preserved ejection fraction Holding [employer] diuretics for now as per above. Follow daily weights. Strict I&Os. Closely monitor for signs/symptoms of volume overload. DM type 2 (diabetes mellitus, type 2) Hgb A1c 8.3% about 9 months ago. Repeat Hgb A1c in the AM. Hold administrator of home health, SSI protocol while inpatient. Monitor BSG checks ACHS. Other Chronic Medical Conditions: CAD with history of CABG x 3 - Continue statin. Anxiety/Depression - Continue [employer] psychiatric medications. COPD - Not signs/symptoms of an acute exacerbation. Continue baseline 2L NC HS (add humification 2/2 recent nose bleed). DVT Prophylaxis: SCDs/TEDs Code Status: FULL CODE PCP: Michael Hinton MD Admission and Anticipated Discharge Date Admission Date: March 04, 2025 Subjective Pt was seen in the AM siting in the chair, more awake today Daughter at bedside States the goal is to get him home with palliative care Review of Systems Review of Systems: All systems reviewed & are unremarkable except as noted in Subjective Physical Exam Physical Exam: General: sleepy. No acute distress HEENT: NC/AT CV: RRR Resp: Breath sounds clear bilaterally, no increased effort of breathing Abdomen: Soft, nontender Extremities: No edema in lower extremities bilaterally. Results & Data Results & Data Vital Signs (Past 12 Hours) Vital Signs Temp Pulse Pulse Resp BP BP Pulse Ox 03/06/25 11:21 36.6 C 75 17 133/77 93 03/06/25 10:36 03/06/25 07:32 36.6 C 75 16 127/61 94 03/06/25 07:00 69 03/06/25 04:04 36.6 C 64 18 136/82 92 O2 Del Method 03/06/25 11:21 Room Air 03/06/25 10:36 Room Air 03/06/25 07:32 Room Air 03/06/25 07:00 03/06/25 04:04 Room Air
[2025-03-06] MEDS: ACETAMINOPHEN 325 MG TAB PO PRN (15:21)
[2025-03-07 07:32] LABS: Hematocrit (blood only) 33.3 % (42.0-52.0); Hemoglobin 11.5 g/dl (14.0-18.0); Mean Corpuscular Hemoglobin 36.4 pg (25.0-34.0); Mean Corpuscular Hgb Conc 34.5 g/dL (32.0-36.0); Mean Corpuscular Volume 105.4 fL (80.0-100.0); Platelet Count 104 K/uL (130-400); RDW Coefficient of Variation 14.1 % (11.5-14.5); RDW Standard Deviation 53.9 fL (36.4-46.3); Red Blood Count 3.16 M/uL (4.70-6.10); White Blood Count 7.65 K/ul (4.8-10.8)
[2025-03-07 07:52] LABS: Albumin Globulin Ratio 1.3 (0.9-2); Albumin Level 3.5 gm/dl (3.4-5.0); BUN Creatinine Ratio 18.3 (10-20); Bilirubin,Total 0.9 mg/dl (0.2-1.0); Calcium 9.2 mg/dl (8.6-10.3); Creatinine Clr Calc Pharmacy 23.7 ml/min; Globulin 2.6 gm/dl (2.5-4.0); Magnesium 1.8 mg/dl (1.7-2.4); Phosphorus 2.9 mg/dl (2.5-4.9); Potassium 3.6 mmol/L (3.5-5.1); Total Protein 6.1 gm/dl (6.0-8.3)
--- NOTE | 2025-03-07 10:50 | Hospitalist Progress Note ---
Date of Service March 07, 2025 Assessment & Plan (1) Acute anterior epistaxis: Plan Mr. 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 difficile diarrhea, BPH, primary osteoarthritis of both knees and gouty arthropathy who presented to the ED via EMS for evaluation of generalized weakness and blood in his stool. Pt's family would like to take him home with palliative care services that they have already set up. GI Bleed Labs personally reviewed. FOBT positive; However, Hgb stable at 12.8 which is improved from his baseline Hgb of 9-12. CTAP with wall thickening of the duodenum and proximal jejunum (+/- inflammatory). Known history of small bowel AVMs with history of argon plasma coagulation and clip placement. Possible upper GI bleed. No indication to transfuse at this time given Hgb>8. Start IV PPI BID. GI consult for possible EGD B12 and folate levels PT/OT Stable at this time- no interventions by GI Epistaxis Afrin protocol Perirectal Cellulitis CT abd/pelvis unremarkable except for noted "...Wall thickening of the duodenum and proximal jejunum favors a nonspecific infectious or inflammatory process..." Wound care consulted, appreciate recs Started on empiric Augmentin with probiotic, continue Continue to monitor Acute kidney injury superimposed on stage 3b chronic kidney disease Noted to have an DORYS with Cr of 2.21 on admission. Baseline Cr around 1.6-2.0 per chart review. Suspect due to recent decline in oral intake ISO generalized weakness. Hold off on additional IVF for now due to history of HFpEF and risk of volume overload Hold [employer] diuretics for now and in setting of GI bleed above Encourage oral intake Avoid nephrotoxic agents when able Monitor renal function closely with daily labs and renally dose medications when able. 03/07- currently worsening, will hold torsemide at this time, consider restarting at lower dose after reassessment in the AM Oral thrush Noted on exam Possibly related to poor oral hygiene generalized weakness Start nystatin swish/swallow and continue to monitor for any improvement Magic Mouthwash PRN for oral pain Parkinson's disease Parkinson's disease with related gait instability and dementia. Follows with neurologist through [facility] in [place], [place]. Reportedly having increased hallucinations per family. Likely related to above. Continue DIRECTOR [employer] INDUSTRIAL RELATIONS donepezil and amantadine. Delirium precautions. Frequent reorientation, avoid sedating medications Paroxysmal A-fib Follows with Dr. Benz of [facility] cardiology as an outpatient Continue [employer]UST[employer]ATIONS Toprol XL. Not on anticoagulation due to chronic anemia and bleeding risk ISO underlying small bowel AVMs. (HFpEF) heart failure with preserved ejection fraction Holding [employer]USTRIAL RELATIONS diuretics for now as per above. Follow daily weights. Strict I&Os. Closely monitor for signs/symptoms of volume overload. DM type 2 (diabetes mellitus, type 2) Hgb A1c 8.3% about 9 months ago. Repeat Hgb A1c in the AM. Hold home health travel ot, SSI protocol while inpatient. Monitor BSG checks ACHS. Other Chronic Medical Conditions: CAD with history of CABG x 3 - Continue statin. Anxiety/Depression - Continue DIRECT[employer]USTRIAL [employer]ATIONS psychiatric medications. COPD - Not signs/symptoms of an acute exacerbation. Continue baseline 2L NC HS (add humification 2/2 recent nose bleed). DVT Prophylaxis: SCDs/TEDs Code Status: FULL CODE PCP: Michael Hinton MD Admission and Anticipated Discharge Date Admission Date: March 04, 2025 Subjective Pt was seen in the AM siting in the chair, more awake today Daughter at bedside- discussion of his worsening kidney function today They are agreeable to holding off on discharge today for further monitoring Review of Systems Review of Systems: All systems reviewed & are unremarkable except as noted in Subjective Physical Exam Physical Exam: General: sleepy. No acute distress HEENT: NC/AT CV: RRR Resp: Breath sounds clear bilaterally, no increased effort of breathing Abdomen: Soft, nontender Extremities: No edema in lower extremities bilaterally. Results & Data Results & Data Vital Signs (Past 12 Hours) Vital Signs Temp Pulse Pulse Resp BP Pulse Ox O2 Del Method 03/07/25 09:38 73 03/07/25 07:29 36.4 C L 104 H 20 140/74 93 Room Air 03/07/25 03:43 36.3 C L 69 20 130/75 96 Room Air 05/16/25 00:33 36.7 C 102 H 20 130/73 93 Room Air
[2025-03-07] MEDS: AMOXICILLIN/CLAVULANATE 500 MG TAB PO SCH (17:22)
[2025-03-08 07:31] LABS: Hemoglobin 11.8 g/dl (14.0-18.0); Mean Corpuscular Hemoglobin 36.2 pg (25.0-34.0); Mean Corpuscular Hgb Conc 34.7 g/dL (32.0-36.0); Mean Corpuscular Volume 104.3 fL (80.0-100.0); Mean Platelet Volume 9.8 fL (9.4-12.4); Platelet Count 108 K/uL (130-400); RDW Standard Deviation 53.6 fL (36.4-46.3); Red Blood Count 3.26 M/uL (4.70-6.10); White Blood Count 7.37 K/ul (4.8-10.8)
[2025-03-08 07:54] LABS: Albumin Globulin Ratio 1.3 (0.9-2); Albumin Level 3.5 gm/dl (3.4-5.0); BUN Creatinine Ratio 20.4 (10-20); Bilirubin,Total 0.9 mg/dl (0.2-1.0); Calcium 9.4 mg/dl (8.6-10.3); Creatinine Clr Calc Pharmacy 23.9 ml/min; Globulin 2.8 gm/dl (2.5-4.0); Magnesium 1.8 mg/dl (1.7-2.4); Phosphorus 3.5 mg/dl (2.5-4.9); Potassium 3.5 mmol/L (3.5-5.1); Total Protein 6.3 gm/dl (6.0-8.3)
--- NOTE | 2025-03-08 11:47 | Hospitalist Progress Note ---
Date of Service March 08, 2025 Assessment & Plan (1) Acute anterior epistaxis: Plan Mr. 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 difficile diarrhea, BPH, primary osteoarthritis of both knees and gouty arthropathy who presented to the ED via EMS for evaluation of generalized weakness and blood in his stool. Pt's family would like to take him home with palliative care services that they have already set up. GI Bleed Labs personally reviewed. FOBT positive; However, Hgb stable at 12.8 which is improved from his baseline Hgb of 9-12. CTAP with wall thickening of the duodenum and proximal jejunum (+/- inflammatory). Known history of small bowel AVMs with history of argon plasma coagulation and clip placement. Possible upper GI bleed. No indication to transfuse at this time given Hgb>8. Start IV PPI BID. GI consult for possible EGD B12 and folate levels PT/OT Stable at this time- no interventions by GI Epistaxis Afrin protocol Perirectal Cellulitis CT abd/pelvis unremarkable except for noted "...Wall thickening of the duodenum and proximal jejunum favors a nonspecific infectious or inflammatory process..." Wound care consulted, appreciate recs Started on empiric Augmentin with probiotic, continue Continue to monitor Acute kidney injury superimposed on stage 3b chronic kidney disease Noted to have an DORYS with Cr of 2.21 on admission. Baseline Cr around 1.6-2.0 per chart review. Suspect due to recent decline in oral intake ISO generalized weakness. Hold off on additional IVF for now due to history of HFpEF and risk of volume overload Hold [employer] diuretics for now and in setting of GI bleed above Encourage oral intake Avoid nephrotoxic agents when able Monitor renal function closely with daily labs and renally dose medications when able. 03/07- currently worsening, will hold torsemide at this time, consider restarting at lower dose after reassessment in the AM 03/08- cr still elevated, nephrology consulted, appreciate recs Oral thrush Noted on exam Possibly related to poor oral hygiene generalized weakness Start nystatin swish/swallow and continue to monitor for any improvement Magic Mouthwash PRN for oral pain Parkinson's disease Parkinson's disease with related gait instability and dementia. Follows with neurologist through [facility] in [place], [place]. Reportedly having increased hallucinations per family. Likely related to above. Continue [employer]ILRO[employer]MAN donepezil and amantadine. Delirium precautions. Frequent reorientation, avoid sedating medications Paroxysmal A-fib Follows with Dr. Benz of [facility] cardiology as an outpatient Continue RAILROAD [employer]MAN Toprol XL. Not on anticoagulation due to chronic anemia and bleeding risk ISO underlying small bowel AVMs. (HFpEF) heart failure with preserved ejection fraction Holding [employer]ILRO[employer]MAN diuretics for now as per above. Follow daily weights. Strict I&Os. Closely monitor for signs/symptoms of volume overload. DM type 2 (diabetes mellitus, type 2) Hgb A1c 8.3% about 9 months ago. Repeat Hgb A1c in the AM. Hold home administrator, SSI protocol while inpatient. Monitor BSG checks ACHS. Other Chronic Medical Conditions: CAD with history of CABG x 3 - Continue statin. Anxiety/Depression - Continue [employer]RO[employer]MAN psychiatric medications. COPD - Not signs/symptoms of an acute exacerbation. Continue baseline 2L NC HS (add humification 2/2 recent nose bleed). DVT Prophylaxis: SCDs/TEDs Code Status: FULL CODE PCP: Michael Hinton MD Admission and Anticipated Discharge Date Admission Date: March 04, 2025 Subjective Pt was seen with his daughter and granddaughter at bedside Anxious for discharge however, cr still the same After further discussion pt and daughter agreeable to nephrology consult for further evaluation for safer discharge home. Review of Systems Review of Systems: All systems reviewed & are unremarkable except as noted in Subjective Physical Exam Physical Exam: General: sleepy. No acute distress HEENT: NC/AT CV: RRR Resp: Breath sounds clear bilaterally, no increased effort of breathing Abdomen: Soft, nontender Extremities: No edema in lower extremities bilaterally. Results & Data Results & Data Vital Signs (Past 12 Hours) Vital Signs Temp Pulse Pulse Resp BP BP Pulse Ox 03/08/25 11:31 36.3 C L 88 18 115/69 97 03/08/25 10:56 77 03/08/25 08:00 77 03/08/25 08:00 36.5 C 110 H 16 150/77 H 93 03/08/25 03:35 36.6 C 100 H 18 126/83 93 O2 Del Method 03/08/25 11:31 Room Air 03/08/25 10:56 03/08/25 08:00 03/08/25 08:00 Room Air 03/08/25 03:35 Room Air
--- NOTE | 2025-03-08 16:18 | Nephrology Consultation ---
Date of Consultation March 08, 2025 Assessment & Plan (1) Acute kidney injury superimposed on stage 3b chronic kidney disease: Martine has proteinuric stage IIIB chronic kidney disease w/ fluctuating renal functions with Wide variation in renal functions w. sCR anywhere between mid 1/0's to early 2.0's, h/o multiple changes in his diuretic regime 2/ Chronic Volume overload but seems to be most comfortble w/ weight @ 68-70 kilo, Recent decline in renal functions 2/ diarrhea and poor oral intake, His weight today is 66 kilo, he has trace pedal edema. He fab has lost muscle weight,I would hold torsemide for today as well and restart it at 20 mg tmrw. 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 He continues to monitor hemoglobin w/ blood tranfusion and venofer with [place] [facility] team (3) (HFpEF) heart failure with preserved ejection fraction: He has a history of congestive heart failure with preserved ejection fraction, currently stable with a left ventricular ejection fraction of 65-70% as per the most recent echocardiogram from May 05, 2024. Seems to be most comfortable w/ weight @68- 70 kilo, His weight today is 66 kilo, he has trace pedal edema. He fab has lost muscle weight,I would hold torsemide for today as well and restart it at 20 mg tmrw. FR 1.5 lit Follow daily weights. Strict I&Os. Closely monitor for signs/symptoms of volume overload. (4) Dementia: Anxiety/Depression - Continue MARKETING COMMUNICATIONS COORDINATOR psychiatric medications. History of Present Illness Reason for Consultation: DORYS on CKD,Volume management Attending Physician: Ailyn Byrd MD History of Present Illness 79y/o M who presented to the ED via EMS for evaluation of generalized weakness and blood in his stool. ER labs were significant for BUN/cr 48/2.2, wt 76.9, HB 12.8 and positive FOB. reports of watery diarrhea over the last 1 week, with poor appetite and weight loss,He has also been " hallucinating" and has been diagnosed with " lewy body dementia", was apprehensive about stopping Diuretic for the fear of Volume overload and very tenacious Volume status. He was last seen Nephrology clinic 11/30/23, f/u of proteinuric stage IIIB chronic kidney disease and has fluctuating renal functions with Wide variation in renla functions w. sCR anywhere between mid 1/0's to early 2.0's, h/o multiple changes in his diuretic regime 2/ Chronic Volume overload. He has a history of congestive heart failure with preserved ejection fraction( F/W [facility] - lat OP f/u 12/28/24(Wt 70 kilo, on torsemide 60 mg daily, Jardiance 10 mg daily, and spironolactone 12.5 mg daily, Cr-2.0) w/ stable with a left ventricular ejection fraction of 65-70% as per the most recent echocardiogram from May 05, 2024. He was advised to continue on medication regimen, which effectively manages his symptoms. He was seen remotely in 2009 for medullary sponge kidney and hypertension. At that time he had a history of a kidney stone in 1999 and a kidney [place] [address] suggestive of medullary sponge kidney. He did a 24 hour urine which was suspicious for incomplete collection. 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 difficile diarrhea, BPH, primary osteoarthritis of both knees and gouty arthropathy. Pt's family would like to take him home with palliative care services that they have already set up. Allergies Allergy/AdvReac Type Severity Reaction Status Date / Time NSAIDS (Non-Steroidal Allergy Intermediate Rash Verified 11/18/24 08:04 Anti-Inflamma YONATAN Inhibitors AdvReac Intermediate Cough Verified 11/14/24 15:33 carbidopa AdvReac Intermediate constipatio Verified 11/14/24 15:33 n levodopa AdvReac Intermediate constipatio Verified 11/14/24 15:33 n Home Medications Medication Instructions Recorded Confirmed Type amantadine HCl 100 mg capsule 100 mg PO QAM 05/22/20 03/04/25 History dutasteride 0.5 mg capsule 0.5 mg PO QAM 01/24/23 03/04/25 History atorvastatin 40 mg tablet 40 mg PO QAM 01/08/24 03/04/25 History allopurinol 300 mg tablet 300 mg PO QAM 07/25/24 03/04/25 History escitalopram oxalate 20 mg tablet 20 mg PO QAM 08/15/24 03/04/25 History torsemide 20 mg tablet 40 mg PO QAM 08/15/24 03/04/25 History spironolactone 25 mg tablet 12.5 mg PO QAM 10/02/24 03/04/25 History empagliflozin 10 mg tablet 10 mg PO QAM 11/05/24 03/04/25 History (Jardiance) Magic Swizzle 15 ml PO BID 03/04/25 03/04/25 History Saccharomyces boulardii 250 mg 250 mg PO DAILY 03/04/25 03/04/25 History capsule bupropion HCl 150 mg 24 hr tablet, 150 mg PO QAM 03/04/25 03/04/25 History extended release donepezil 10 mg disintegrating 10 mg PO QAM 03/04/25 03/04/25 History tablet metoprolol succinate 50 mg 50 mg PO QAM 03/04/25 03/04/25 History tablet,extended release 24 hr pramoxine 1 % topical cream 1 applic topical UD 03/04/25 03/04/25 History (CeraVe Itch Relief) Patient History Medical History GI bleed 09/2023 Anemia 09/2023 inpt at [facility] Atrial fibrillation f/u Dr. Benz [facility] Sharee on hold due to anemia History of blood transfusion 10/06/23- was admitted at [facility], low blood count, reason for upcoming procedure 03/24/23, "he's bleeding somewhere, has a low blood count, not sure where losing it from"; f/u [facility]. 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 History of pneumonia end of 01/2023, found in lt. 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 Parkinson's>no current issues Diastolic dysfunction Lower extremity edema HUNTER (iron deficiency anemia) Ambulatory dysfunction Seasonal allergies Thoracic aortic aneurysm sx in 2011, at [facility] Lumbar spondylosis MUSTAFA (dyspnea on exertion) inh prn Coronary aneurysm (2011) Per cardio records CAD with CABG in 2011 (CHILDS to LAD and exclusion of RCA aneurysm Adverse reaction to anesthetic agent 2011 w/hip replacement>hallucinated for 3 days Orthostatic hypotension (07/2019) Peripheral arterial disease Recurrent cellulitis of lower extremity reason for daily cephalexin Anxiety CAD (coronary artery disease) history of CABG (CHILDS to LAD and exclusion of a right coronary artery aneurysm), 2011 at [facility]. Surgical History History of carpal tunnel release of both wrists History of esophagogastroduodenoscopy (EGD) Hx of colonoscopy Hx of bilateral cataract extraction History of neck surgery [facility] w/Dr. 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 foot H/O eye surgery numerous when he was young Family History Unknown No problems noted. Father Hypertension, Onset Age: 40 at 40 Mother Hypertension COPD (chronic obstructive pulmonary disease) Diabetes Brother Allergies Asthma Grandmother Diabetes Denies family history of Prostate cancer Hearing loss No family history of adverse response to anesthesia No family history of bleeding disorder Heart disease Cancer Stroke Social History Smoking Status: Never smoker Second Hand Exposure: No; Do You Dip or Chew Tobacco: No; Hx Alcohol Use: No Hx Substance Use: No Preferred Language: Micronesian Communication Ability: Effective Communication Ability Comment: Hard of hearing Communication Tools: Facial Expression, Physical Gestures and Lip Movement/Reading Visual Impairment: No Limitations Hearing Ability: Use of Hearing Aid Middleware Administrator Required: No Beliefs That Will Affect Care: None marital status: Current Living Situation: Spouse Current Living Situation Comment: Lives at home with spouse current occupational status: retired How many Children do You have: 2 Feels Safe at Home: Yes Diet: diabetic and low salt caffeine: Yes during the past year weight has: remained stable Assistive Devices: Oxygen - at Night and Walker Review of Systems 2 Review of Systems: Appears to be confused Comfortable at rest Physical Exam 2 Physical Exam: General: sleepy. No acute distress HEENT: NC/AT CV: RRR Resp: Breath sounds clear bilaterally, no increased effort of breathing Abdomen: Soft, nontender Extremities: No edema in lower extremities bilaterally Results & Data Vital Signs (Past 12 Hours) Vital Signs Temp Pulse Pulse Resp BP Pulse Ox O2 Del Method 03/08/25 11:31 36.3 C L 88 18 115/69 97 Room Air 03/08/25 10:56 77 03/08/25 08:00 77 03/08/25 08:00 36.5 C 110 H 16 150/77 H 93 Room Air Laboratory Results 03/08/25 07:03 03/08/25 07:03 (3) (HFpEF) heart failure with preserved ejection fraction Heart failure chronicity: chronic Qualified Code(s): I50.32 - Chronic diastolic (congestive) heart failure (4) Dementia Dementia behavioral disturbance: without behavioral disturbance Dementia type: unspecified type Qualified Code(s): F03.90 - Unspecified dementia without behavioral disturbance
[2025-03-09 07:12] LABS: Hematocrit (blood only) 32.6 % (42.0-52.0); Hemoglobin 11.3 g/dl (14.0-18.0); Mean Corpuscular Hemoglobin 36.7 pg (25.0-34.0); Mean Corpuscular Hgb Conc 34.7 g/dL (32.0-36.0); Mean Corpuscular Volume 105.8 fL (80.0-100.0); Mean Platelet Volume 10.2 fL (9.4-12.4); Platelet Count 112 K/uL (130-400); RDW Coefficient of Variation 13.8 % (11.5-14.5); RDW Standard Deviation 54.1 fL (36.4-46.3); Red Blood Count 3.08 M/uL (4.70-6.10); White Blood Count 5.32 K/ul (4.8-10.8)
[2025-03-09 08:26] LABS: Albumin Globulin Ratio 1.3 (0.9-2); Albumin Level 3.5 gm/dl (3.4-5.0); BUN Creatinine Ratio 21.9 (10-20); Bilirubin,Total 0.7 mg/dl (0.2-1.0); Calcium 9.5 mg/dl (8.6-10.3); Creatinine Clr Calc Pharmacy 22.4 ml/min; Globulin 2.6 gm/dl (2.5-4.0); Magnesium 2.1 mg/dl (1.7-2.4); Phosphorus 3.5 mg/dl (2.5-4.9); Potassium 4.1 mmol/L (3.5-5.1); Total Protein 6.1 gm/dl (6.0-8.3)
--- NOTE | 2025-03-09 13:17 | Nephrology Progress Note ---
Date of Service March 09, 2025 Assessment & Plan (1) Acute kidney injury superimposed on stage 3b chronic kidney disease: Plan: Martine has proteinuric stage IIIB chronic kidney disease w/ fluctuating renal functions with Wide variation in renal functions w. sCR anywhere between mid 1/0's to early 2.0's, h/o multiple changes in his diuretic regime 2/ Chronic Volume overload but seems to be most comfortble w/ weight @ 68-70 kilo, Recent decline in renal functions 2/ diarrhea and poor oral intake, His weight today is 66 kilo, he has trace pedal edema. 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 He continues to monitor hemoglobin w/ blood tranfusion and venofer with [place] Hematology team (3) (HFpEF) heart failure with preserved ejection fraction: Plan: He has a history of congestive heart failure with preserved ejection fraction, currently stable with a left ventricular ejection fraction of 65-70% as per the most recent echocardiogram from May 05, 2024. Seems to be most comfortable w/ weight @68- 70 kilo, His weight today is 66 kilo, he has trace pedal edema. He fab has lost muscle weight,restart torsemide at 20 mg daily FR 1.5 lit Follow daily weights. Strict I&Os. Closely monitor for signs/symptoms of volume overload. (4) Dementia: Plan: Anxiety/Depression - Continue RESIDENTIAL DIRECTOR psychiatric medications. Admission and Anticipated Discharge Date Admission Date: March 04, 2025 Subjective Pleasantly confused. Comfortable . Review of Systems Review of Systems: Appears to be confused Comfortable at rest Physical Exam Physical Exam: General: sleepy. No acute distress HEENT: NC/AT CV: RRR Resp: Breath sounds clear bilaterally, no increased effort of breathing Abdomen: Soft, nontender Extremities: No edema in lower extremities bilaterally Results & Data Vital Signs (Past 12 Hours) Vital Signs Temp Pulse Resp BP Pulse Ox O2 Del Method 03/09/25 11:56 36.2 C L 82 16 125/85 99 Room Air 03/09/25 08:53 36.7 C 92 H 18 139/77 95 Room Air 03/09/25 03:58 36.5 C 82 18 125/73 95 Room Air (3) (HFpEF) heart failure with preserved ejection fraction Heart failure chronicity: chronic Qualified Code(s): I50.32 - Chronic diastolic (congestive) heart failure (4) Dementia Dementia behavioral disturbance: without behavioral disturbance Dementia type: unspecified type Qualified Code(s): F03.90 - Unspecified dementia without behavioral disturbance
--- NOTE | 2025-03-09 14:46 | Hospitalist Progress Note ---
Date of Service March 09, 2025 Assessment & Plan (1) Acute anterior epistaxis: Plan Mr. 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 difficile diarrhea, BPH, primary osteoarthritis of both knees and gouty arthropathy who presented to the ED via EMS for evaluation of generalized weakness and blood in his stool. Pt's family would like to take him home with palliative care services that they have already set up. GI Bleed Labs personally reviewed. FOBT positive; However, Hgb stable at 12.8 which is improved from his baseline Hgb of 9-12. CTAP with wall thickening of the duodenum and proximal jejunum (+/- inflammatory). Known history of small bowel AVMs with history of argon plasma coagulation and clip placement. Possible upper GI bleed. No indication to transfuse at this time given Hgb>8. Start IV PPI BID. GI consult for possible EGD B12 and folate levels PT/OT Stable at this time- no interventions by GI Epistaxis Afrin protocol Perirectal Cellulitis CT abd/pelvis unremarkable except for noted "...Wall thickening of the duodenum and proximal jejunum favors a nonspecific infectious or inflammatory process..." Wound care consulted, appreciate recs Started on empiric Augmentin with probiotic, continue Continue to monitor Acute kidney injury superimposed on stage 3b chronic kidney disease Noted to have an DORYS with Cr of 2.21 on admission. Baseline Cr around 1.6-2.0 per chart review. Suspect due to recent decline in oral intake ISO generalized weakness. Hold off on additional IVF for now due to history of HFpEF and risk of volume overload Hold NNPS diuretics for now and in setting of GI bleed above Encourage oral intake Avoid nephrotoxic agents when able Monitor renal function closely with daily labs and renally dose medications when able. 03/07- currently worsening, will hold torsemide at this time, consider restarting at lower dose after reassessment in the AM 03/08- cr still elevated, nephrology consulted, appreciate recs 03/09- cr continues to be elevated, discussed with marine superintendent Dr Liu and he recommends starting torsemide at lower dose of 20mg daily. Oral thrush Noted on exam Possibly related to poor oral hygiene generalized weakness Start nystatin swish/swallow and continue to monitor for any improvement Magic Mouthwash PRN for oral pain Parkinson's disease Parkinson's disease with related gait instability and dementia. Follows with neurologist through [facility] in [place], [place]. Reportedly having increased hallucinations per family. Likely related to above. Continue NNPS donepezil and amantadine. Delirium precautions. Frequent reorientation, avoid sedating medications Paroxysmal A-fib [facility] Continue NNPS Toprol XL. Not on anticoagulation due to chronic anemia and bleeding risk ISO underlying small bowel AVMs. (HFpEF) heart failure with preserved ejection fraction Holding NNPS diuretics for now as per above. Follow daily weights. Strict I&Os. Closely monitor for signs/symptoms of volume overload. DM type 2 (diabetes mellitus, type 2) Hgb A1c 8.3% about 9 months ago. Repeat Hgb A1c in the AM. Hold home care music therapist, SSI protocol while inpatient. Monitor BSG checks ACHS. Other Chronic Medical Conditions: CAD with history of CABG x 3 - Continue statin. Anxiety/Depression - Continue NNPS psychiatric medications. COPD - Not signs/symptoms of an acute exacerbation. Continue baseline 2L NC HS (add humification 2/2 recent nose bleed). DVT Prophylaxis: SCDs/TEDs Code Status: FULL CODE PCP: Michael Hinton MD Admission and Anticipated Discharge Date Admission Date: March 04, 2025 Subjective Pt was seen with his and granddaughter at bedside Pt anxious for discharge noting she is not comfortable taking him home and caring for him knowing that his numbers are not optimal She notes they have made palliative care arrangements through [facility] and someone will be coming to the house tomorrow (Berny) Case discussed with Nephrology Review of Systems Review of Systems: All systems reviewed & are unremarkable except as noted in Subjective Physical Exam Physical Exam: General: sleepy. No acute distress HEENT: NC/AT CV: RRR Resp: Breath sounds clear bilaterally, no increased effort of breathing Abdomen: Soft, nontender Extremities: No edema in lower extremities bilaterally. Results & Data Results & Data Vital Signs (Past 12 Hours) Vital Signs Temp Pulse Resp BP Pulse Ox O2 Del Method 03/09/25 11:56 36.2 C L 82 16 125/85 99 Room Air 03/09/25 08:53 36.7 C 92 H 18 139/77 95 Room Air 03/09/25 03:58 36.5 C 82 18 125/73 95 Room Air
[2025-03-09] MEDS: DEXTROSE 50% 50 ML SYRINGE IV PRN (21:24)
[2025-03-10 08:53] LABS: Hematocrit (blood only) 33.3 % (42.0-52.0); Hemoglobin 11.7 g/dl (14.0-18.0); Mean Corpuscular Hemoglobin 36.3 pg (25.0-34.0); Mean Corpuscular Hgb Conc 35.1 g/dL (32.0-36.0); Mean Corpuscular Volume 103.4 fL (80.0-100.0); Mean Platelet Volume 9.8 fL (9.4-12.4); Platelet Count 128 K/uL (130-400); RDW Coefficient of Variation 14.1 % (11.5-14.5); RDW Standard Deviation 53.2 fL (36.4-46.3); Red Blood Count 3.22 M/uL (4.70-6.10); White Blood Count 4.33 K/ul (4.8-10.8)
[2025-03-10] MEDS: TORSEMIDE 20 MG TAB PO SCH (09:05)
[2025-03-10 09:14] LABS: Albumin Globulin Ratio 1.5 (0.9-2); Albumin Level 3.5 gm/dl (3.4-5.0); BUN Creatinine Ratio 21.1 (10-20); Bilirubin,Total 0.6 mg/dl (0.2-1.0); Calcium 9.3 mg/dl (8.6-10.3); Creatinine Clr Calc Pharmacy 23.3 ml/min; Globulin 2.4 gm/dl (2.5-4.0); Magnesium 2.2 mg/dl (1.7-2.4); Phosphorus 3.7 mg/dl (2.5-4.9); Potassium 3.8 mmol/L (3.5-5.1); Total Protein 5.9 gm/dl (6.0-8.3)
--- NOTE | 2025-03-10 11:02 | Nephrology Progress Note ---
Date of Service March 10, 2025 Assessment & Plan (1) Acute kidney injury superimposed on stage 3b chronic kidney disease: Plan: proteinuric stage IIIB chronic kidney disease w/ fluctuating renal function with Wide variation in renal functions w. sCR anywhere between mid 1/0's to early 2.0's, h/o multiple changes in his diuretic regime 2/2 Chronic Volume overload but seems to be most comfortable w/ weight @ 68-70 kilo. Recent decline in renal functions 2/ diarrhea and poor oral intake, His weight today is 66.5 kilo (all wts bedweights this admission), he has trace pedal edema. 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 He continues to monitor hemoglobin w/ blood tranfusion and venofer with [place] Hematology team (3) (HFpEF) heart failure with preserved ejection fraction: Plan: He has a history of congestive heart failure with preserved ejection fraction, currently stable with a left ventricular ejection fraction of 65-70% as per the most recent echocardiogram from May 05, 2024. Seems to be most comfortable w/ weight @68- 70 kilo, His weight today is 66 kilo, he has trace pedal edema. He likley has lost muscle weight,restart torsemide at 20 mg daily FR 1.5 lit Follow daily weights. Strict I&Os. Closely monitor for signs/symptoms of volume overload. (4) Dementia: Plan: Anxiety/Depression - Continue POTLINE MONITOR psychiatric medications. Admission and Anticipated Discharge Date Admission Date: March 04, 2025 Results & Data Vital Signs (Past 12 Hours) Vital Signs Temp Pulse Pulse Pulse Resp BP BP 03/10/25 07:42 36.2 C L 86 18 150/80 H 03/10/25 07:19 89 03/10/25 04:00 36.8 C 73 18 146/72 H 03/09/25 23:00 36.8 C 79 18 128/73 Pulse Ox O2 Del Method 03/10/25 07:42 94 Room Air 03/10/25 07:19 03/10/25 04:00 95 Room Air 03/09/25 23:00 98 Room Air Laboratory Results 03/10/25 08:17 03/10/25 08:17 (3) (HFpEF) heart failure with preserved ejection fraction Heart failure chronicity: chronic Qualified Code(s): I50.32 - Chronic diastolic (congestive) heart failure (4) Dementia Dementia behavioral disturbance: without behavioral disturbance Dementia type: unspecified type Qualified Code(s): F03.90 - Unspecified dementia without behavioral disturbance
[2025-03-10 13:23] VITALS: RESP 15; TEMP 97.7; O2SAT 97
--- NOTE | 2025-03-10 13:49 | Discharge Summary ---
Discharge Summary Date of Service March 10, 2025 Principal Dx & Hospital Course #1 = Principal Diagnosis (1) Acute anterior epistaxis: Plan Mr. 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 difficile diarrhea, BPH, primary osteoarthritis of both knees and gouty arthropathy who presented to the ED via EMS for evaluation of generalized weakness and blood in his stool. Pt's family would like to take him home with palliative care services that they have already set up. GI Bleed Labs personally reviewed. FOBT positive; However, Hgb stable at 12.8 which is improved from his baseline Hgb of 9-12. CTAP with wall thickening of the duodenum and proximal jejunum (+/- inflammatory). Known history of small bowel AVMs with history of argon plasma coagulation and clip placement. Possible upper GI bleed. No indication to transfuse at this time given Hgb>8. Start IV PPI BID. GI consult for possible EGD B12 and folate levels PT/OT Stable at this time- no interventions by GI Epistaxis Afrin protocol Perirectal Cellulitis CT abd/pelvis unremarkable except for noted "...Wall thickening of the duodenum and proximal jejunum favors a nonspecific infectious or inflammatory process..." Wound care consulted, appreciate recs Started on empiric Augmentin with probiotic, continue Continue to monitor Acute kidney injury superimposed on stage 3b chronic kidney disease Noted to have an DORYS with Cr of 2.21 on admission. Baseline Cr around 1.6-2.0 per chart review. Suspect due to recent decline in oral intake ISO generalized weakness. Hold off on additional IVF for now due to history of HFpEF and risk of volume overload Hold DATE PITTER diuretics for now and in setting of GI bleed above Encourage oral intake Avoid nephrotoxic agents when able Monitor renal function closely with daily labs and renally dose medications when able. 03/07- currently worsening, will hold torsemide at this time, consider restarting at lower dose after reassessment in the AM 03/08- cr still elevated, nephrology consulted, appreciate recs 03/09- cr continues to be elevated, discussed with wire lather Dr Liu and he recommends starting torsemide at lower dose of 20mg daily. Oral thrush Noted on exam Possibly related to poor oral hygiene generalized weakness Start nystatin swish/swallow and continue to monitor for any improvement Magic Mouthwash PRN for oral pain Parkinson's disease Parkinson's disease with related gait instability and dementia. Follows with neurologist through [facility] in [place], [place]. Reportedly having increased hallucinations per family. Likely related to above. Continue DATE PITTER donepezil and amantadine. Delirium precautions. Frequent reorientation, avoid sedating medications Paroxysmal A-fib Follows with Dr. Benz of [facility] cardiology as an outpatient Continue DATE PITTER Toprol XL. Not on anticoagulation due to chronic anemia and bleeding risk ISO underlying small bowel AVMs. (HFpEF) heart failure with preserved ejection fraction Holding DATE PITTER diuretics for now as per above. Follow daily weights. Strict I&Os. Closely monitor for signs/symptoms of volume overload. DM type 2 (diabetes mellitus, type 2) Hgb A1c 8.3% about 9 months ago. Repeat Hgb A1c in the AM. Hold home demonstration agent, SSI protocol while inpatient. Monitor BSG checks ACHS. Other Chronic Medical Conditions: CAD with history of CABG x 3 - Continue statin. Anxiety/Depression - Continue DATE PITTER psychiatric medications. COPD - Not signs/symptoms of an acute exacerbation. Continue baseline 2L NC HS (add humification 2/2 recent nose bleed). DVT Prophylaxis: SCDs/TEDs Code Status: FULL CODE PCP: Michael Hinton MD Notes For Next Care Provider Medication Changes From Visit Per Nephrology: Decrease torsemide from 40mg to 20mg daily Hold spironolactone at this time Augmentin with probiotic x 7 days Pantoprazole 40mg BID Admission HPI Per Admitting Provider Mr. 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 difficile diarrhea, BPH, primary osteoarthritis of both knees and gouty arthropathy who presented to the ED via EMS for evaluation of generalized weakness and blood in his stool. History obtained from patient's family at bedside, discussion with ED provider and extensive chart review. Patient seen at bedside in the ED with Dr. Dale. Patient is significantly [place] and did not have his hearing aids available therefore history was directly obtained from the patient's and daughter. Notable worsening of generalized weakness since this past weekend. Has had 2 incidences over the past few days where he has slid out of his recliner that he sleeps in routinely, most recently as of yesterday. He required at two-person assist both times in order to be placed back in his recliner which is more help than he typically needs. It was also noted that he had a nosebleed Monday evening which did initially improve with applied pressure however then it started to bleed again this morning. His home health nurse through [facility] was able to stop the bleed earlier today with nasal packing and he has not had any recurrence. His noticed some clarita red blood in his stool this morning. Reportedly has had a couple bouts of blood in his stool over the past few days. 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 Labs personally reviewed. FOBT positive; however, Hgb stable at 12.8 which is improved from his baseline Hgb of 9-12. Electrolytes WNL. Cr 2.21 which is slightly bumped from his baseline Cr of around 1.6-2.0 in the setting of known CKD stage IIIb. Appetite has been somewhat decreased with poor oral intake as of lately. He has been complaining of a sore tongue and mouth over the past week. Has been using Magic Mouthwash for this without much relief. Daughter raises concern for thrush which he has had before. UA without gross evidence of infection. No reported fevers, chills, chest pain, SOB or abdominal pain. No changes in bowel or urinary habits. Uses rollator to assist with ambulation. Shuffling gait in the setting of Parkinson's disease. No prior smoking history. No alcohol use. No recreational drug use. Did not take any of his medications today. Discharge Exam General: sleepy. No acute distress HEENT: NC/AT CV: RRR Resp: Breath sounds clear bilaterally, no increased effort of breathing Abdomen: Soft, nontender Extremities: No edema in lower extremities bilaterally. Updated Medication List Medication Instructions Recorded Confirmed Type amantadine HCl 100 mg capsule 100 mg PO QAM 05/22/20 03/04/25 History dutasteride 0.5 mg capsule 0.5 mg PO QAM 01/24/23 03/04/25 History atorvastatin 40 mg tablet 40 mg PO QAM 01/08/24 03/04/25 History allopurinol 300 mg tablet 300 mg PO QAM 07/25/24 03/04/25 History escitalopram oxalate 20 mg tablet 20 mg PO QAM 08/15/24 03/04/25 History torsemide 20 mg tablet 40 mg PO QAM 08/15/24 03/04/25 History spironolactone 25 mg tablet 12.5 mg PO QAM 10/02/24 03/04/25 History empagliflozin 10 mg tablet 10 mg PO QAM 11/05/24 03/04/25 History (Jardiance) Magic Swizzle 15 ml PO BID 03/04/25 03/04/25 History Saccharomyces boulardii 250 mg 250 mg PO DAILY 03/04/25 03/04/25 History capsule bupropion HCl 150 mg 24 hr tablet, 150 mg PO QAM 03/04/25 03/04/25 History extended release donepezil 10 mg disintegrating 10 mg PO QAM 03/04/25 03/04/25 History tablet metoprolol succinate 50 mg 50 mg PO QAM 03/04/25 03/04/25 History tablet,extended release 24 hr pramoxine 1 % topical cream 1 applic topical UD 03/04/25 03/04/25 History (CeraVe Itch Relief) L.acidop,casei,lactis,rham-B.lact,bernard 1 cap PO DAILY #30 caps 03/10/25 Rx 625 mg (10 billion cell) capsule (Advanced Probiotic) amoxicillin 500 mg-potassium 1 tab PO BIDM #14 tabs 03/10/25 Rx clavulanate 125 mg tablet pantoprazole 40 mg tablet,delayed 40 mg PO BID #60 tabs 03/10/25 Rx release torsemide 20 mg tablet 20 mg PO QAM #30 tabs 03/10/25 Rx Hospital Stay Data Consultations 03/04/25 16:17 ED Decision to Admit Stat 03/04/25 17:40 Consult Gastroenterology Routine 03/08/25 10:09 Consult Nephrology Routine Diagnostic Imagining Performed 03/04/25 13:31 CT head/brain wo con Stat 03/04/25 14:26 CT abd pelvis wo con Stat Discharge Instructions Given to Patient (Per Discharging Provider) Jesus, You were admitted with concern for bleeding. Your symptoms improved. You were seen by the wire lather as there was concern about your kidney function. They recommend continuing with a lower dose of torsemide 20mg and following up with nephrology in 1 week after discharge. They would like you to discontinue the home spironolactone at this time. Continue with the antibiotic Augmentin with the probiotic to help treat the rectal infection for an additional 7 days. Continue with pantoprazole 40mg twice a day. You indicated that you will be transitioning to Palliative Care services after discharge. Please keep close follow up with your primary care provider after discharge. Please do not hesitate to come back to the emergency room if your symptoms worsen or return. It was a pleasure taking care of you while you were here.
[2025-03-10 15:29] VITALS: BP 146/72; PULSE 80
== END 2025-03-10 15:36 | disposition home health service (06) | DRG 378 ==
LOC: ED 13:09 → SUATTDRO 17:38 → EDINP 17:38 → 2W 17:56